=== PATIENT | male | born 1970 | race Caucasian/White ===

== ENCOUNTER → 2022-11-09 13:44 | Outpatient (BNVA) | payer MEDICAID, SELFPAY | PROVIDERS: PCP Internal Medicine; Visit Provider Anesthesiology | DX: E11.42 Type 2 diabetes mellitus with diabetic polyneuropathy (principal); M10.9 Gout, unspecified; E66.01 Morbid (severe) obesity due to excess calories; G89.4 Chronic pain syndrome; F25.9 Schizoaffective disorder, unspecified; Z68.38 Body mass index [BMI] 38.0-38.9, adult | CPT/HCPCS: 99202 ==

== ENCOUNTER 2022-12-06 10:09 | Outpatient (REF) | payer MEDICAID, SELFPAY ==
[2022-12-06 11:54] LABS: Basophils Absolute Auto 0.1 X10*3/uL (0.0-0.2); Basophils Percent Auto 0.7 % (0-2); Eosinophils Absolute Auto 0.5 X10*3/uL (0.0-0.4); Eosinophils Percent Auto 3.7 % (0-4); Hematocrit 44.8 % (42.0-52.0); Hemoglobin 14.2 g/dl (14.0-18.0); Imm Gran Pct Auto 0.7 % (0.0-0.4); Lymphocytes Percent Auto 21.6 % (20-40); MANUAL DIFF FLAG SCAN; Mean Corpuscular HGB Conc 31.7 g/dl (31.0-36.0); Mean Corpuscular Hemoglobin 27.2 pg (27.0-33.0); Mean Corpuscular Volume 85.7 fL (80.0-98.0); Monocytes Absolute Auto 1.3 X10*3/uL (0.1-1.2); Neutrophils Absolute Auto 8.9 x10*3/uL (2.0-8.3); Neutrophils Percent Auto 64.3 % (45-73); PLT CLUMP 1; Red Blood Count 5.23 X10*6/uL (4.60-5.80); SCAN SMEAR FLAG 1
[2022-12-06 12:05] LABS: Estimated Average Glucose 278 mg/dL; Hemoglobin A1c % 11.3 %
[2022-12-06 12:21] LABS: Creatinine Urine 47.24 mg/dL
[2022-12-06 12:24] LABS: Platelet Count 232 X10*3/uL (160-400); SLIDE REVIEW VERIFIED; White Blood Count 13.8 X10*3/uL (4.8-10.8)
[2022-12-06 12:25] LABS: B Type Natriuretic Peptide 15 pg/mL (<100)
[2022-12-06 12:30] LABS: Microalbum/Creatinine Ratio Ur 4233.7 ug/mg cr; Microalbumin Urine > 2000.0 mg/L
[2022-12-06 12:45] LABS: HBS Num1 14.76 mIU/mL (0-7.99); HBc Num1 0.04 S/CO (0.00-0.79); HBsAGNum1 0.35 S/CO (0.00-0.99); HIV AB/AG Nonreactive (Nonreactive); HIV Num 1 0.05 S/CO (0.00-0.99); Hepatitis A Antibody IgM 0.16 Index (0-0.79); Hepatitis B Core Antibody Nonreactive (Nonreactive); Hepatitis B Surface Antigen Negative (Negative); ~HepC Num1 0.06 S/CO (0.00-0.79); ~Hepatitis A Antibody IgM Nonreactive (Nonreactive); ~Hepatitis B Surface Antibody REACTIVE (Nonreactive); ~Hepatitis C Antibody Nonreactive (Nonreactive)
[2022-12-06 13:10] LABS: TSH reflex Free T4 1.99 uIU/mL (0.32-4.0); Vitamin D 25-OH Total 14.8 ng/mL (>30)
[2022-12-06 13:23] LABS: Alanine Aminotransferase 28 U/L (0-40); Albumin Level 3.7 g/dL (3.5-5.0); Alkaline Phosphatase 143 U/L (39-117); Anion Gap 19 (12-20); Aspartate Amino Transferase 17 U/L (5-37); Bilirubin Total 0.5 mg/dL (0.0-1.0); Blood Urea Nitrogen 36 mg/dL (9-16); Calcium 10.2 mg/dL (8.4-10.2); Carbon Dioxide 20 mmol/L (22-29); Chloride 100 mmol/L (96-108); Cholesterol 153 mg/dL; Estimated Glomerular Filt Rate 39; Glucose Random 411 mg/dL (60-115); HDL Cholesterol 33 mg/dL; LDL Cholesterol Calculated 52 mg/dl; Potassium 4.4 mmol/L (3.3-5.1); Sodium 135 mmol/L (135-145); Total Protein 7.6 g/dL (6.5-8.0); Triglycerides 340 mg/dL
[2022-12-07 04:22] LABS: Syphilis Screen Nonreactive (Nonreactive)
[2022-12-07 19:17] LABS: Calcium (PTHI) 9.9 mg/dL (8.6-10.3); PTHI 115 pg/mL (16-77)
== END 2022-12-06 10:10 | disposition home or self-care (01) ==
LOC: HO.HHCL 10:09
PROVIDERS: Visit Provider Registered Nurse
DX: R06.02 Shortness of breath (principal); E11.42 Type 2 diabetes mellitus with diabetic polyneuropathy; Z76.89 Persons encountering health services in other specified circumstances; Z00.00 Encounter for general adult medical examination without abnormal findings; Z79.4 Long term (current) use of insulin
CPT/HCPCS: 36415; 80053; 80061; 82043; 82306; 83036; 83880; 83970; 84443; 85025; 86704; 86706; 86709; 86780; 86803; 87340; 87389

== ENCOUNTER 2022-12-09 11:21 | Outpatient (REF) | payer MEDICAID, SELFPAY ==
--- NOTE | ~2022-12-09 | XR_ITS ---
EXAMINATION: XR SHOULDER, LEFT CLINICAL INFORMATION: Left shoulder pain. COMPARISON: None available. TECHNIQUE: AP external rotation, Grashey, scapular Y, and axillary views of the left shoulder. FINDINGS: The bones and soft tissues are normal. No fracture. Glenohumeral and acromioclavicular alignment is anatomic with normal joint space. No abnormal soft tissue calcifications. XR/XR shoulder LT min 2V IMPRESSION: Unremarkable left shoulder.
--- NOTE | ~2022-12-09 | XR_ITS ---
EXAMINATION: XR CERVICAL SPINE CLINICAL INFORMATION: Neck pain. COMPARISON: None available. TECHNIQUE: 6 views of the cervical spine, inclusive of flexion and extension views, were obtained. FINDINGS: The vertebral alignment is normal. No intrinsic bony abnormality. The disc heights and neural foramina are well maintained. The endplates and posterior elements are normal. No fracture or subluxation. The surrounding prevertebral soft tissues are unremarkable. XR/XR cervical spine 5V IMPRESSION: Unremarkable cervical spine.
== END 2022-12-09 11:22 | disposition home or self-care (01) ==
LOC: HO.HHCX 11:21
PROVIDERS: Visit Provider Internal Medicine
DX: M54.12 Radiculopathy, cervical region (principal); M25.512 Pain in left shoulder
CPT/HCPCS: 72050; 73030

== ENCOUNTER 2023-01-13 13:23 | Emergency (ER) | payer MEDICAID, SELFPAY ==
[2023-01-13] VITALS (8 sets, daily range): BP systolic 85–133; BP diastolic 57–87; PULSE 84–95; RESP 12–18; TEMP 36.4–36.7; O2SAT 93–98; BMI 38.2
--- NOTE | ~2023-01-13 | US_ITS ---
EXAMINATION: US VENOUS ULTRASOUND WITH DOPPLER LOWER EXTREMITY, LEFT CLINICAL INFORMATION: Left lower extremity pain and swelling. COMPARISON: None available. TECHNIQUE: Ultrasound of the deep veins is performed from the hip to the calf with compression sonography and color and pulse Doppler assessment. Spectral analysis with color-flow imaging is performed. FINDINGS: There is normal venous compression and respiratory variation and augmented flow. The visualized common femoral vein, superficial femoral vein, profunda femoral vein, popliteal vein, and the trifurcation region shows no evidence of deep venous thrombosis. If the patient's symptoms persist, followup ultrasound in 5 days 7 days might be of value to exclude proximal propagation from a non-visualized calf vein. US/US venous duplex LE IMPRESSION: No DVT demonstrated in the left lower extremity.
--- NOTE | 2023-01-13 13:58 | ED_ITS ---
HPI - General Adult General Chief complaint: Dizziness Stated complaint: Dizzy Weak Time Seen by Provider: 01/13/23 16:13 Source: patient and family Mode of arrival: ambulatory Limitations: no limitations History of Present Illness HPI narrative: Patient comes to the emergency room complaining of high blood sugars. Patient states that when he was here in the emergency room waiting, he started feeling dizzy. Patient reports that the whole room started spinning and then it self- resolved. Patient denies chest pain or shortness of breath. Also, patient has been complaining of left lower extremity calf and thigh pain in the posterior aspect for a week, patient denies any trauma. Patient states that he feels a lot of pressure. Patient states that he has neuropathy but this pain is different. Related Data Home Medications Medication Instructions Recorded Confirmed allopurinol 100 mg tablet 100 mg PO DAILY 11/09/22 aspirin 81 mg tablet,delayed 81 mg PO DAILY 11/09/22 release blood-glucose meter,continuous 11/09/22 (DexMister Mario G7 Sales Stock Associate) carvedilol 25 mg tablet 25 mg PO BID 11/09/22 dulaglutide 4.5 mg/0.5 mL 4.5 mg subcut QWEEK 11/09/22 subcutaneous pen injector (Trulicity) empagliflozin 25 mg tablet 25 mg PO DAILY 11/09/22 furosemide 80 mg tablet 80 mg PO BID 11/09/22 gabapentin 800 mg tablet 800 mg PO DAILY 11/09/22 insulin aspart U-100 100 unit/mL 20 unit subcut TID 11/09/22 (3 mL) subcutaneous pen (Novolog FlexPen U-100 Insulin aspart) insulin regular hum U-500 conc 500 200 unit subcut QAM 11/09/22 unit/mL subcutaneous soln (Humulin R U-500 (Concentrated) Insulin) losartan 50 mg tablet 50 mg PO DAILY 11/09/22 pantoprazole 40 mg tablet,delayed 40 mg PO DAILY 11/09/22 release trazodone 150 mg tablet 150 mg PO BEDTIME PRN 11/09/22 ziprasidone HCl 40 mg capsule 40 mg PO BID 11/09/22 Allergies Allergy/AdvReac Type Severity Reaction Status Date / Time penicillin V Allergy Mild Rash Verified 01/13/23 14:07 Penicillins [PENICILLINS] Allergy Unknown RASH, Verified 01/13/23 14:07 DIFFICULTY BREATHING Review of Systems 2 Review of Systems: Constitutional : No Weight loss, No Fever, No Chills, No Night Sweats, No Fatigue, No Malaise ENT/Mouth : No Hearing loss, No Ear Pain, No Nasal Congestion, No Sinus Pain, No Hoarseness, No sore throat, No Rhinorrhea, No Swallowing Difficulty Eyes: No Eye Pain, No Swelling, No Redness, No Foreign Body, No Discharge, No Vision Changes Cardiovascular : No Chest Pain, No SOB, No Dyspnea on Exertion, No Orthopnea, No Edema, No Palpitations Respiratory : No Cough, No Sputum, No Wheezing, No Smoke Exposure, No Dyspnea Gastrointestinal : No Nausea, No Vomiting, No Diarrhea, No Constipation, No abdominal Pain, No Hematochezia, No Melena Genitourinary : no irregular bleeding, No Dysuria, No Urinary Frequency, No Hematuria, No Urinary Incontinence, No Urgency, No Flank Pain, No Urinary Flow Changes, No Hesitancy Musculoskeletal : Complaining of left upper and lower leg pain and swelling, No joint pain, No Myalgias, No Joint Swelling Skin : No Skin Lesions, No rash Neuro : No Weakness, No Numbness, No Paresthesias, No Loss of Consciousness, no headache, complaining of dizziness/head spinning Psych : No Anxiety/Panic, No Depression, No SI/HI/AH/VH, No Social Issues, Heme/Lymph: No Bruising, No Bleeding,No Lymphadenopathy Endocrine : No Polyuria, No Polydipsia, complaining of high blood sugars [facility] Past Medical History Medical History (Updated 01/13/23 @ 23:14 by Zena Saldivar MD) Type 2 diabetes mellitus Schizoaffective disorder Chronic pain syndrome Diabetic polyneuropathy Gout Social History Social History Advance Directives: No Advance Directives Information Provided: Yes Physical Exam ED Vital Signs: Vital Signs - 24 hr 01/13/23 13:57 01/13/23 15:58 01/13/23 16:43 Temperature 97.5 F 98.0 F Pulse Rate 92 91 88 Respiratory Rate 18 18 16 Blood Pressure 92/62 85/59 L 91/57 L Pulse Oximetry 94 95 93 Oxygen Delivery Method Room Air Room Air Room Air Oxygen Flow Rate 01/13/23 17:05 01/13/23 18:32 01/13/23 18:33 Temperature Pulse Rate 88 84 91 Respiratory Rate 12 Blood Pressure 107/71 133/77 124/81 Pulse Oximetry 97 Oxygen Delivery Method Room Air Oxygen Flow Rate 01/13/23 18:34 01/13/23 20:01 Temperature Pulse Rate 91 95 Respiratory Rate 14 Blood Pressure 129/87 123/81 Pulse Oximetry 98 Oxygen Delivery Method Nasal Cannula Oxygen Flow Rate 2 BMI result Body Mass Index 38.2 Const Other: Appearance: Alert. Oriented X3. No acute distress. Eyes: Pupils equal, round and reactive to light. ENT: Pharynx normal. Neck: Normal inspection. Neck supple. No lymph nodes noted. No crepitus CVS: Normal heart rate and rhythm. Pulses normal. Normal S1 and S2 Respiratory: No respiratory distress. Breath sounds normal. No Wheezing. No rales Abdomen: Soft and nontender. No rigidity. No distention. Skin: Skin warm and dry. Normal skin color. Normal skin turgor. Extremities: +2 nonpitting edema, pain to palpation in the left calf and left thigh posteriorly, work left leg looks slightly more swollen than the right. Neuro: Oriented X 3. No motor deficit. No sensory deficit. Moving all extremities. No slurred speech. CN 2 through 12 grossly intact Psych: calm, cooperative, normal affect Course Course Course Narrative: RME- 52 year old male presents for evaluation of feeling weak and dizzy all day today. He reports his glucometer has been reading high all day. Plan for labs including beta hydroxybutyrate. Patient complaining of dizziness and feeling worse. I re-evaluated the patient and he was significantly diaphoretic. Plan to add EKG, troponin and he was brought back to room 19 Medications Administered Discontinued Medications Generic Name Dose Route Start Last Admin Trade Name Meñoq PRN Reason Stop Dose Admin Sodium Chloride 2,000 mls @ 999 mls/hr 01/13/23 16:25 01/13/23 16:40 Ns IVCONT 01/13/23 18:25 999 mls/hr .Q2H1M ONE Administration Sodium Chloride 1,000 mls @ 999 mls/hr 01/13/23 20:29 01/13/23 21:33 Ns IVCONT 01/13/23 21:29 999 mls/hr .Q1H1M ONE Administration Insulin Human Regular 10 unit 01/13/23 16:25 01/13/23 17:10 Insulin Regular, Human 100 Unit/Ml 3 Ml Vial IVPUSH 01/13/23 16:26 10 unit ONCE ONE Administration Meclizine HCl 50 mg 01/13/23 16:30 01/13/23 17:06 Meclizine Hcl 25 Mg Tablet PO 01/13/23 16:31 50 mg ONCE ONE Administration Medical Decision Making Medical Decision Making [facility] Narrative: -interpretation of labs, patient's white blood cell count 14.7, patient has no source of infection or reports any known infection. -patient's creatinine 2.61, couple of months ago it was 1.85. Patient receiving IV fluids, will recheck BMP -beta hydroxybutyrate negative. -orthostatic vitals pending -ultrasound of left lower extremity pending -troponin and BNP pending -my interpretation EKG, normal sinus rhythm heart rate 90, no ST segment elevation elevation or depression, QTC 437 -patient received an additional L of normal saline. 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 Patient's elevated creatinine likely secondary to chronic kidney disease from diabetes. -patient feeling much better, no longer dizzy, ready for discharge Differential Diagnosis Differential Diagnoses: The differential diagnosis associated with the presentation includes (Hyperglycemia, acute kidney injury, chronic kidney disease) Admission/Observation Consideration of admission/observation: Escalation of care including admission/observation considered (Patient came in with a high glucose level, with a no known diagnosis of kidney chronic disease. Admission was considered) Consult Healthcare Provider Management of the patient was discussed with: Hospitalist (Discussed the patient with the hospitalist, I agree with Dr. Mccarthy, the creatinine improved with fluids. However, it is very close to baseline plus additional he got an additional L of fluids. Patient known to have CKD.) Lab Data [facility] Lab Attestation statement: I reviewed the patient's lab results. 01/13/23 14:32 01/13/23 19:33 Labs: Lab Results 01/13/23 01/13/23 01/13/23 Range/Units 14:05 14:32 14:35 WBC 14.7 H (4.8-10.8) X10*3/uL RBC 5.16 (4.60-5.80) X10*6/uL Hgb 14.2 (14.0-18.0) g/dl Hct 43.4 (42.0-52.0) % MCV 84.1 (80.0-98.0) fL MCH 27.5 (27.0-33.0) pg MCHC 32.7 (31.0-36.0) g/dl RDW 13.9 (11.0-16.0) % Plt Count 290 (160-400) X10*3/uL MPV 12.7 H (9.4-12.4) fL Immature Gran % (Auto) 0.4 (0.0-0.4) % Neut % (Auto) 65.8 (45-73) % Lymph % (Auto) 19.2 L (20-40) % [place] % (Auto) 11.1 H (2-11) % Eos % (Auto) 3.0 (0-4) % Baso % (Auto) 0.5 (0-2) % Lymph # (Auto) 2.8 (1.2-4.9) X10*3/uL [place] # (Auto) 1.6 H (0.1-1.2) X10*3/uL Eos # (Auto) 0.4 (0.0-0.4) X10*3/uL Baso # (Auto) 0.1 (0.0-0.2) X10*3/uL Abs Immat Gran (auto) 0.06 H (0.00-0.03) X10*3/uL Absolute Neuts (auto) 9.7 H (2.0-8.3) x10*3/uL Absolute Nucleated RBC 0.000 (0.0-0.012) X10*3/uL Nucleated RBC % (auto) 0.0 (0.0-0.2) /100WBC Smear Tech's Comments VERIFIED Sodium 134 L (135-145) mmol/L Potassium 4.1 (3.3-5.1) mmol/L Chloride 101 (96-108) mmol/L Carbon Dioxide 24 (22-29) mmol/L Anion Gap 13 (12-20) BUN 43 H (9-16) mg/dL Creatinine 2.61 H (0.5-1.4) mg/dL Estim Creat Clear Calc 40.5 Estimated GFR 26 POC Glucose 399 H* (60-115) mg/dL Random Glucose 378 H* (60-115) mg/dL Calcium 9.9 (8.4-10.2) mg/dL Total Bilirubin 0.4 (0.0-1.0) mg/dL AST 15 (5-37) U/L ALT 19 (0-40) U/L Alkaline Phosphatase 134 H (39-117) U/L Troponin I High Sens (<3.5-35.0) ng/L B-Natriuretic Peptide (<100) pg/mL Total Protein 6.8 (6.5-8.0) g/dL Albumin 3.4 L (3.5-5.0) g/dL Lipase 105 H (8-78) U/L Beta-Hydroxybutyrate 0.12 (0.02-0.27) mmol/L Urine Color Yellow Urine Appearance Clear Urine pH 5.5 (5.0-9.0) Ur Specific [place] 1.025 (1.005-1.025) Urine Protein 300 (3+) H (Neg-Trace) mg/dL Urine Glucose (UA) >=1000 H (Negative) mg/dL Urine Ketones Negative (Negative) mg/dL Urine Blood Negative (Negative) Urine Nitrite Negative (Negative) Ur Leukocyte Esterase Negative (Negative) Urine RBC 3-5 H (0-2) /HPF Urine WBC 0-5 (0-5) /HPF Ur Squamous Epith Cells 0-2 (0-2) /HPF Urine Bacteria Trace (None Seen) Hyaline Casts 0-2 (0-2) /LPF 01/13/23 01/13/23 01/13/23 Range/Units 16:10 16:42 19:22 WBC (4.8-10.8) X10*3/uL RBC (4.60-5.80) X10*6/uL Hgb (14.0-18.0) g/dl Hct (42.0-52.0) % MCV (80.0-98.0) fL MCH (27.0-33.0) pg MCHC (31.0-36.0) g/dl RDW (11.0-16.0) % Plt Count (160-400) X10*3/uL MPV (9.4-12.4) fL Immature Gran % (Auto) (0.0-0.4) % Neut % (Auto) (45-73) % Lymph % (Auto) (20-40) % [place] % (Auto) (2-11) % Eos % (Auto) (0-4) % Baso % (Auto) (0-2) % Lymph # (Auto) (1.2-4.9) X10*3/uL [place] # (Auto) (0.1-1.2) X10*3/uL Eos # (Auto) (0.0-0.4) X10*3/uL Baso # (Auto) (0.0-0.2) X10*3/uL Abs Immat Gran (auto) (0.00-0.03) X10*3/uL Absolute Neuts (auto) (2.0-8.3) x10*3/uL Absolute Nucleated RBC (0.0-0.012) X10*3/uL Nucleated RBC % (auto) (0.0-0.2) /100WBC Smear Tech's Comments Sodium (135-145) mmol/L Potassium (3.3-5.1) mmol/L Chloride (96-108) mmol/L Carbon Dioxide (22-29) mmol/L Anion Gap (12-20) BUN (9-16) mg/dL Creatinine (0.5-1.4) mg/dL Estim Creat Clear Calc Estimated GFR POC Glucose 100 (60-115) mg/dL Random Glucose (60-115) mg/dL Calcium (8.4-10.2) mg/dL Total Bilirubin (0.0-1.0) mg/dL AST (5-37) U/L ALT (0-40) U/L Alkaline Phosphatase (39-117) U/L Troponin I High Sens 17.9 (<3.5-35.0) ng/L B-Natriuretic Peptide 10 (<100) pg/mL Total Protein (6.5-8.0) g/dL Albumin (3.5-5.0) g/dL Lipase (8-78) U/L Beta-Hydroxybutyrate (0.02-0.27) mmol/L Urine Color Urine Appearance Urine pH (5.0-9.0) Ur Specific [place] (1.005-1.025) Urine Protein (Neg-Trace) mg/dL Urine Glucose (UA) (Negative) mg/dL Urine Ketones (Negative) mg/dL Urine Blood (Negative) Urine Nitrite (Negative) Ur Leukocyte Esterase (Negative) Urine RBC (0-2) /HPF Urine WBC (0-5) /HPF Ur Squamous Epith Cells (0-2) /HPF Urine Bacteria (None Seen) Hyaline Casts (0-2) /LPF 01/13/23 Range/Units 19:33 WBC (4.8-10.8) X10*3/uL RBC (4.60-5.80) X10*6/uL Hgb (14.0-18.0) g/dl Hct (42.0-52.0) % MCV (80.0-98.0) fL MCH (27.0-33.0) pg MCHC (31.0-36.0) g/dl RDW (11.0-16.0) % Plt Count (160-400) X10*3/uL MPV (9.4-12.4) fL Immature Gran % (Auto) (0.0-0.4) % Neut % (Auto) (45-73) % Lymph % (Auto) (20-40) % [place] % (Auto) (2-11) % Eos % (Auto) (0-4) % Baso % (Auto) (0-2) % Lymph # (Auto) (1.2-4.9) X10*3/uL [place] # (Auto) (0.1-1.2) X10*3/uL Eos # (Auto) (0.0-0.4) X10*3/uL Baso # (Auto) (0.0-0.2) X10*3/uL Abs Immat Gran (auto) (0.00-0.03) X10*3/uL Absolute Neuts (auto) (2.0-8.3) x10*3/uL Absolute Nucleated RBC (0.0-0.012) X10*3/uL Nucleated RBC % (auto) (0.0-0.2) /100WBC Smear Tech's Comments Sodium 141 (135-145) mmol/L Potassium 3.7 (3.3-5.1) mmol/L Chloride 108 (96-108) mmol/L Carbon Dioxide 25 (22-29) mmol/L Anion Gap 12 (12-20) BUN 42 H (9-16) mg/dL Creatinine 2.17 H (0.5-1.4) mg/dL Estim Creat Clear Calc 48.8 Estimated GFR 32 POC Glucose (60-115) mg/dL Random Glucose 112 (60-115) mg/dL Calcium 9.5 (8.4-10.2) mg/dL Total Bilirubin (0.0-1.0) mg/dL AST (5-37) U/L ALT (0-40) U/L Alkaline Phosphatase (39-117) U/L Troponin I High Sens (<3.5-35.0) ng/L B-Natriuretic Peptide (<100) pg/mL Total Protein (6.5-8.0) g/dL Albumin (3.5-5.0) g/dL Lipase (8-78) U/L Beta-Hydroxybutyrate (0.02-0.27) mmol/L Urine Color Urine Appearance Urine pH (5.0-9.0) Ur Specific [place] (1.005-1.025) Urine Protein (Neg-Trace) mg/dL Urine Glucose (UA) (Negative) mg/dL Urine Ketones (Negative) mg/dL Urine Blood (Negative) Urine Nitrite (Negative) Ur Leukocyte Esterase (Negative) Urine RBC (0-2) /HPF Urine WBC (0-5) /HPF Ur Squamous Epith Cells (0-2) /HPF Urine Bacteria (None Seen) Hyaline Casts (0-2) /LPF Independent Interpretation I performed an independent interpretation of an: Ultrasound (My interpretation of ultrasound of the leg, no obvious blood clot/DVT) Radiology Impression Discussion of test interpretation with radiology: I have reviewed the radiologist's reading. Radiologist Impression: FINDINGS: There is normal venous compression and respiratory variation and augmented flow. The visualized common femoral vein, superficial femoral vein, profunda femoral vein, popliteal vein, and the trifurcation region shows no evidence of deep venous thrombosis. If the patient's symptoms persist, followup ultrasound in 5 days 7 days might be of value to exclude proximal propagation from a non-visualized calf vein. US/US venous duplex LE LT IMPRESSION: No DVT demonstrated in the left lower extremity. Independent Historian Clinical information obtained from an independent historian. History obtained from or confirmed by: Spouse Critical Care Time Critical Care Time Total Critical Care Time: 75 Attestation: I have personally provided critical care time. Time includes review of lab data, radiology results, discussion with consultants, and monitoring for potential decompensation. Intervention performed as documented. Discharge Plan Discharge Clinical Impression: Acute hyperglycemia, Acute kidney injury superimposed on CKD, Left leg swelling Patient Disposition: Home, Self-Care Instructions: Diabetic Hyperglycemia (ED) Additional Instructions: Please follow-up with your primary care physician tomorrow. If you have any worsening or new symptoms, please return to the emergency room or call 911 Prescriptions: No Action gabapentin 800 mg tablet 800 mg PO DAILY losartan 50 mg tablet 50 mg PO DAILY insulin aspart U-100 [Novolog FlexPen U-100 Insulin] 100 unit/mL (3 mL) insulin pen 20 unit subcut TID Trulicity 4.5 mg/0.5 mL pen injector 4.5 mg subcut QWEEK trazodone 150 mg tablet 150 mg PO BEDTIME PRN ziprasidone HCl 40 mg capsule 40 mg PO BID Rx Instructions: give with food (meal/snack) Humulin R U-500 (Conc) Insulin 500 unit/mL solution 200 unit subcut QAM pantoprazole 40 mg tablet,delayed release (DR/EC) 40 mg PO DAILY furosemide 80 mg tablet 80 mg PO BID empagliflozin 25 mg tablet 25 mg PO DAILY carvedilol 25 mg tablet 25 mg PO BID Rx Instructions: must administer with a meal/food aspirin 81 mg tablet,delayed release (DR/EC) 81 mg PO DAILY allopurinol 100 mg tablet 100 mg PO DAILY (DME) Dexcom G7 Sales Stock Associate Misc See Rx Instructions .ROUTE Rx Instructions: As directed
[2023-01-13 14:19] LABS: Glucose, Whole Blood 399 mg/dL (60-115)
--- OUTSIDE RECORDS SUMMARY | 2023-01-13 14:29 | XMS_ITS | Continuity of Care Document ---
Author Name Unknown Organization [facility] Address [address] [place] [address]- Care Team Providers Care Act English Tutor Name Role Phone Rosa Levine MD Primary Care Physician Encounter [facility] Date(s): 08/26/22 - 09/25/22 [facility] [address], [place] [address] Allergies, Adverse Reactions, Alerts Substance Reaction Severity Status penicillin Active Medications 4-jose/nif/pent/doxep 10/8/8/5% 4-jose/nif/pent/doxep 10/8/8/5%, Refills 0, Maintenance, apply for pain - electrical pulse, 08/09/22 13:25:00 EDT, Supply Start Date: 08/09/22 Status: Ordered Advair HFA 230 mcg / 21 mcg 2 puffs, Inhalation, 2 times a day, rinse mouth and throat after each use, # 3 each, 1 Refills, Maintenance, 08/25/22 18:29:00 EDT, [facility] upon patient request if the prescription is for a schedule II opioid... Start Date: 08/25/22 Status: Ordered albuterol 0.083% inhalation solution 3 mL = 2.5 mg, Inhalation, Every 6 hours, PRN shortness of breath, # 120 each, 0 Refills, Maintenance, 08/09/22 13:19:00 EDT, Solution, Partial fill upon patient request if the prescription is for a schedule II opioid drug. Start Date: 08/09/22 Status: Ordered allopurinol 100 mg oral tablet 100 mg, 1, tablet, By Mouth, Daily, # 90 tablet, Refills 1, Tot. Refills 1, Maintenance, 08/25/22 18:25:00 EDT, Route to Pharmacy Electronically, [facility]., Partial fill upon patientrequest if the prescription is for a schedule II op... Start Date: 08/25/22 Status: Ordered aspirin 81 mg oral delayed release tablet 81 mg, 1, tablet, By Mouth, Daily, # 90 tablet, Refills 1, Tot. Refills 1, Maintenance, 08/25/22 18:25:00 EDT, Route to Pharmacy Electronically, [facility], Partial fill upon patient request if the prescription is for a schedule II opi... Start Date: 08/25/22 Status: Ordered atorvastatin 80 mg oral tablet 1 tablet = 80 mg, By Mouth, Daily, # 90 tablet, 1 Refills, Maintenance, 08/25/22 18:25:00 EDT, Tablet, [facility], Partial fill upon patient request if the prescription is for a schedule II opioid drug., 176, cm, 08/17/22 14:18:00 EDT,... Start Date: 08/25/22 Status: Ordered Blood Pressure Monitor See Instructions, # 1 each, Maintenance, Use to check blood pressure daily, 09/08/22 10:57:00 EDT, Supply, 176, cm, 08/26/22 17:00:00 EDT, Height Start Date: 09/08/22 Status: Ordered carvedilol 25 mg oral tablet 25 mg, 1, tablet, By Mouth, 2 times a day, with breakfast and dinner, # 180 tablet, Refills 1, Tot.Refills 1, Maintenance, 08/25/22 18:25:00 EDT, Route to Pharmacy Electronically, [facility], Partial fill upon patient request if the p... Start Date: 08/25/22 Status: Ordered clonazePAM 0.5 mg oral tablet 1 tablet = 0.5 mg, By Mouth, 3 times a day, 0 Refills, Maintenance, 08/09/22 13:18:00 EDT, Tablet, Partial fill upon patient request if the prescription is for a schedule II opioid drug. Start Date: 08/09/22 Status: Ordered Compression Stockings See Instructions, # 1 pack/packet, Refills 1, Tot. Refills 1, Maintenance, surgical, knee length 30-40 mm Hg. Use daily ICD-10: R22.43 Lifetime, 08/17/22 14:19:00 EDT, Supply Start Date: 08/17/22 Status: Ordered DEXCOM G7 RECIEVER DEXCOM G7 RECIEVER, See Instructions, # 1 each, Refills 0, Tot. Refills 0, Maintenance, Dexcom G7 surgical garment fitter use as directed. e11.9, 09/14/22 10:15:00 EDT, Compound, 176, cm, 09/14/22 9:47:00 EDT, Height Start Date: 09/14/22 Status: Ordered Dexcom G7 Sensor Dexcom G7 Sensor, See Instructions, # 10 each, Refills 3, Tot. Refills 3, Maintenance, Apply DexcomG7 sensor Every 10 days. e11.9, 09/14/22 10:15:00 EDT, Supply, 176, cm, 09/14/22 9:47:00 EDT, Height Start Date: 09/14/22 Status: Ordered diclofenac 1% topical gel 1 application, Topically, 4 times a day, # 100 Gm, 0 Refills, Maintenance, 08/09/22 13:22:00 EDT, Gel, Partial fill upon patient request if the prescription is for a schedule II opioid drug. Start Date: 08/09/22 Status: Ordered empagliflozin 25 mg oral tablet 1 tablet = 25 mg, By Mouth, Daily in AM, # 90 tablet, 1 Refills, Maintenance, 08/25/22 18:32:00 EDT, Tablet, [facility], Partial fill upon patient request if the prescription is for aschedule II opioid drug., 176, cm, 08/17/22 14:18:0... Start Date: 08/25/22 Status: Ordered ergocalciferol 75077 iu oral capsule 50,000 International_Units, 1, capsule, By Mouth, Every week, # 13 capsule, Refills 0, Tot. Refills0, Maintenance, 09/22/22 9:24:00 EDT, Route to Pharmacy Electronically, [facility],Partial fill upon patient request if the prescripti... Start Date: 09/22/22 Stop Date: 12/21/22 Status: Ordered Eucerin Plus topical lotion 1 application, Topically, 2 times a day, PRN for dry skin, # 180 mL, 0 Refills, Maintenance, 08/26/22 17:33:00 EDT, Lotion, [facility]., Partial fill upon patient request if the prescription is for a schedule II opioid drug., 1 applicat... Start Date: 08/26/22 Status: Ordered fluticasone 50 mcg/inh nasal spray 2 sprays = 100 mcg, Nares, Both, Daily in AM, # 16 Gm, 3 Refills, Maintenance, 08/25/22 18:32:00 EDT, Nasal [place], [facility]., Partial fill upon patient request if the prescription isfor a schedule II opioid drug., 2 sprays Nares, Bot... Start Date: 08/25/22 Status: Ordered Freestyle Lancets See Instructions, # 200 each, Refills 3, Tot. Refills 3, Maintenance, Use 4xday to check blood glucose Duration lifetime Dx E11.9, 08/31/22 16:23:00 EDT, Supply, 176, cm, 08/26/22 17:00:00 EDT, Height Start Date: 08/31/22 Status: Ordered Freestyle Lite Monitor See Instructions, # 1 each, Maintenance, Use 4xday to check blood glucose Duration lifetime Dx E11.9, 08/31/22 16:23:00 EDT, Supply, 176, cm, 08/26/22 17:00:00 EDT, Height Start Date: 08/31/22 Status: Ordered Freestyle Test Strips See Instructions, # 200 each, Refills 3, Tot. Refills 3, Maintenance, Use 4xday to check blood glucose Duration lifetime Dx E11.9, 08/31/22 16:23:00 EDT, Supply, 176, cm, 08/26/22 17:00:00 EDT, Height Start Date: 08/31/22 Status: Ordered furosemide 80 mg oral tablet 80 mg, 1, tablet, By Mouth, 2 times a day, # 60 tablet, Refills 0, Tot. Refills 0, Maintenance, 08/26/22 16:04:00 EDT, Route to Pharmacy Electronically, [facility]., 176, cm, 08/17/22 14:18:00 EDT, Height Start Date: 08/26/22 Stop Date: 09/25/22 Status: Ordered gabapentin 800 mg oral tablet 2 tablet = 1,600 mg, By Mouth, 2 times a day, # 90 tablet, 0 Refills, Maintenance, 08/09/22 13:17:00 EDT, Tablet, Partial fill upon patient request if the prescription is for a schedule II opioid drug. Start Date: 08/09/22 Status: Ordered Humulin R (Concentrated) 500 units/mL subcutaneous = 190 units, Subcutaneous Injection, 2 times a day, # 24 mL, 1 Refills, Maintenance, 08/25/22 18:32:00 EDT, [facility], Partial fill upon patient request if the prescription is for a schedule II opioid drug., 176, cm, 08/17/22 14:18:00... Start Date: 08/25/22 Status: Ordered hydrALAZINE 10 mg oral tablet 10 mg, 1, tablet, By Mouth, 2 times a day, # 180 tablet, Refills 1, Tot. Refills 1, Maintenance, 09/12/22 14:43:00 EDT, Route to Pharmacy Electronically, [facility], Partial fill uponpatient request if the prescription is for a schedu... Start Date: 09/12/22 Stop Date: 03/11/23 Status: Ordered insulin aspart 100 units/mL subcutaneous solution = 30 units, Subcutaneous Injection, 3 times a day before meals, # 15 mL, 1 Refills, Maintenance, 08/25/22 18:54:00 EDT, Injection, [facility]., label all scripts in Panamanian, 176, cm, 08/17/22 14:18:00 EDT, Height Start Date: 08/25/22 Stop Date: 10/24/22 Status: Ordered lidocaine 5% topical film 1 patch, Topically, Daily, PRN Pain , Mild, remove after 12 hours, # 13 each, 0 Refills, Maintenance, 08/09/22 13:18:00 EDT, Film, Partial fill upon patient request if the prescription is for a schedule II opioid drug. Start Date: 08/09/22 Status: Ordered loperamide 2 mg oral tablet 1 tablet = 2 mg, By Mouth, Every 4 hours, for 7 days, # 42 tablet, 0 Refills, Acute 09/26/22 13:58:00 EDT, 09/19/22 13:58:00 EDT, [facility] Partial fill upon patient request if the prescription is for a schedule II opioid drug., 176,... Start Date: 09/19/22 Stop Date: 09/26/22 Status: Ordered losartan 50 mg oral tablet 50 mg, 1, tablet, By Mouth, Daily, # 90 tablet, Refills 0, Tot. Refills 0, Maintenance, 08/09/22 11:45:00 EDT, Route to Pharmacy Electronically, [facility]., Partial fill upon patient request if the prescription is for a schedule II opi... Start Date: 08/09/22 Status: Ordered pantoprazole 40 mg oral delayed release tablet 1 tablet = 40 mg, By Mouth, Daily, # 7 tablet, 0 Refills, Maintenance, 08/26/22 14:59:00 EDT, EC Tablet, 176, cm, 08/17/22 14:18:00 EDT, Height Start Date: 08/26/22 Stop Date: 09/02/22 Status: Ordered Spiriva Respimat 1.25 mcg/inh inhalation aerosol 2 puffs = 2.5 mcg, Inhalation, Daily, # 3 each, 1 Refills, Maintenance, 08/25/22 18:29:00 EDT, Aerosol, [facility]., Partial fill upon patient request if the prescription is for a schedule II opioid drug., 176 cm, 08/17/22 14:18:00 EDT... Start Date: 08/25/22 Status: Ordered traMADol 50 mg oral tablet 1 tablet = 50 mg, By Mouth, Every 8 hours, PRN for pain, # 60 tablet, 0 Refills, Maintenance, 08/09/22 13:25:00 EDT, Tablet, Partial fill upon patient request if the prescription is for a schedule IIopioid drug. Start Date: 08/09/22 Status: Ordered traZODone 150 mg oral tablet 1 tablet = 150 mg, By Mouth, Daily at bedtime, # 90 tablet, 0 Refills, Maintenance, 08/09/22 13:00:00 EDT, Tablet, [facility] Partial fill upon patient request if the prescription isfor a schedule II opioid drug., 176, cm, 08/04/22 1... Start Date: 08/09/22 Status: Ordered Triamcinolone 0.1% Dental By Mouth, 0 Refills, Maintenance Start Date: 08/09/22 Status: Ordered Trulicity Pen 4.5 mg/0.5 mL subcutaneous solution = 0.5 mL, Subcutaneous Injection, Every week, rotate injection sites, # 2 mL, 1 Refills, Maintenance, 08/09/22 11:45:00 EDT, Solution, [facility] Partial fill upon patient request ifthe prescription is for a schedule II opioid drug.,... Start Date: 08/09/22 Status: Ordered Ventolin HFA 108 mcg/inh inhalation aerosol with adapter 2 puffs = 180 mcg, Inhalation, Every 4 hours, PRN Wheezing/Shortness of Breath, # 18 Gm, 0 Refills,Maintenance, 08/25/22 18:29:00 EDT, Inhaler, [facility] Partial fill upon patient request if the prescription is for a schedule II opi... Start Date: 08/25/22 Status: Ordered Zetia 10 mg oral tablet 1 tablet = 10 mg, By Mouth, Daily, # 30 tablet, 0 Refills, Maintenance, 08/26/22 14:58:00 EDT, Tablet, [facility]., Partial fill upon patient request if the prescription is for a schedule II opioid drug., 176, cm, 08/17/22 14:18:00 EDT,... Start Date: 08/26/22 Stop Date: 09/25/22 Status: Ordered ziprasidone 40 mg oral capsule 1 capsule = 40 mg, By Mouth, Daily in AM, # 90 each, 0 Refills, Maintenance, 08/09/22 13:01:00 EDT,Capsule, [facility] Partial fill upon patient request if the prescription is for aschedule II opioid drug., 176, cm, 08/04/22 16:02:0... Start Date: 08/09/22 Status: Ordered ziprasidone 80 mg oral capsule 1 capsule = 80 mg, By Mouth, Daily at supper, # 90 each, 0 Refills, Maintenance, 08/09/22 13:01:00 EDT, [facility] Partial fill upon patient request if the prescription is for a schedule II opioid drug., 176, cm, 08/04/22 16:02:00 EDT... 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 Confirmed Active Constipation in male Confirmed Active Diabetic foot Confirmed Active Diabetes mellitus with diabetic nephropathy Confirmed Active Transaminitis Confirmed Active Primary hypertension Confirmed Active GERD without esophagitis Confirmed Active Gout Confirmed Active History of stroke Confirmed Active H/O colonoscopy 2020, next due 2027 2 Confirmed Active Hyperlipidemia due to type 2 diabetes mellitus Confirmed Active 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 Confirmed Active Microalbuminuric diabetic nephropathy Confirmed Active Asthma, mild Confirmed Active Obesity with serious comorbidity Confirmed Active REGI (obstructive sleep apnea) Confirmed Active PTSD (post-traumatic stress disorder) Confirmed Active Schizoaffective disorder, depressive type Confirmed Active Severe obesity (BMI 35.0-39.9) with comorbidity Confirmed Active Hepatic steatosis 3 Confirmed Active Tubular adenoma, benign, of large intestine 4 Confirmed Active Vitamin D deficiency Confirmed Active 1CVA 2016 2information and pathology of colonospcy in [place] 09-09-2020 note 3per note - CT at outside location 4Completed a colonoscopy 2020 and had a cecum polyp. Biopsy tubular adenoma. repeat colonoscopy 7 years Social History Social History Type Response Smoking Status Never smoker entered on: 03/12/18 Sex Patient Care team information Care Team Personnel Name: Julianna GROSS, Rosa Andres Position: [facility] Primary Care Physician Member Role: PCP Address: Address: [address] [place] [id number] Care Team Related Persons Name: MARILU BOYD
--- OUTSIDE RECORDS SUMMARY | 2023-01-13 14:29 | XMS_ITS | Continuity of Care Document ---
Author Name Unknown Organization [facility] Address [address] [place] [address]- Care Team Providers Care Hydrographic Engineer Name Role Phone Rosa Levine MD Primary Care Physician Encounter [facility] Date(s): 08/25/22 - 09/24/22 [facility] [address] [place] [address]- Allergies, Adverse Reactions, Alerts Substance Reaction Severity [...] 1 Refills, Maintenance, 08/25/22 18:29:00 EDT, [facility] fill upon patient request if the [...] 08/25/22 18:25:00 EDT, Route to Pharmacy Electronically, [facility]., Partial fill upon patientrequest if the prescription is for a schedule II op... Start Date: 08/25/22 Status: Ordered aspirin 81 mg oral delayed release tablet 81 mg, 1, tablet, By Mouth, Daily, # 90 tablet, Refills 1, Tot. Refills 1, Maintenance, 08/25/22 18:25:00 EDT, Route to Pharmacy Electronically, [facility], Partial fill upon patient request if the prescription is for a schedule II opi... Start Date: 08/25/22 Status: Ordered atorvastatin 80 mg oral tablet 1 tablet = 80 mg, By Mouth, Daily, # 90 tablet, 1 Refills, Maintenance, 08/25/22 18:25:00 EDT, Tablet, [facility], Partial fill upon patient request if [...] 08/25/22 18:25:00 EDT, Route to Pharmacy Electronically, [facility], Partial fill upon patient request if [...] 0, Tot. Refills 0, Maintenance, Dexcom G7 potato picker use as directed. e11.9, 09/14/22 10:15:00 EDT, [...] 1 Refills, Maintenance, 08/25/22 18:32:00 EDT, Tablet, [facility], Partial fill upon patient request if the prescription is for aschedule II opioid drug., 176, cm, 08/17/22 14:18:0... Start Date: 08/25/22 Status: Ordered ergocalciferol 96006 iu oral capsule 50,000 International_Units, 1, capsule, By Mouth, Every week, # 13 capsule, Refills 0, Tot. Refills0, Maintenance, 09/22/22 9:24:00 EDT, Route to Pharmacy Electronically, [facility],Partial fill upon patient request if the prescripti... Start Date: 09/22/22 Stop Date: 12/21/22 Status: Ordered Eucerin Plus topical lotion 1 application, Topically, 2 times a day, PRN for dry skin, # 180 mL, 0 Refills, Maintenance, 08/26/22 17:33:00 EDT, Lotion, [facility]., Partial fill upon patient request if the prescription is for a schedule II opioid drug., 1 applicat... Start Date: 08/26/22 Status: Ordered fluticasone 50 mcg/inh nasal spray 2 sprays = 100 mcg, Nares, Both, Daily in AM, # 16 Gm, 3 Refills, Maintenance, 08/25/22 18:32:00 EDT, Nasal [place], [facility]., Partial fill upon patient request if the [...] 08/26/22 16:04:00 EDT, Route to Pharmacy Electronically, [facility]., 176, cm, 08/17/22 14:18:00 EDT, Height Start [...] mL, 1 Refills, Maintenance, 08/25/22 18:32:00 EDT, [facility], Partial fill upon patient request if the prescription is for a schedule II opioid drug., 176, cm, 08/17/22 14:18:00... Start Date: 08/25/22 Status: Ordered hydrALAZINE 10 mg oral tablet 10 mg, 1, tablet, By Mouth, 2 times a day, # 180 tablet, Refills 1, Tot. Refills 1, Maintenance, 09/12/22 14:43:00 EDT, Route to Pharmacy Electronically, [facility], Partial fill uponpatient request if the prescription is for a schedu... Start Date: 09/12/22 Stop Date: 03/11/23 Status: Ordered insulin aspart 100 units/mL subcutaneous solution = 30 units, Subcutaneous Injection, 3 times a day before meals, # 15 mL, 1 Refills, Maintenance, 08/25/22 18:54:00 EDT, Injection, [facility]., label all scripts in [place]araguan, 176, cm, 08/17/22 14:18:00 EDT, Height Start [...] Acute 09/26/22 13:58:00 EDT, 09/19/22 13:58:00 EDT, [facility] Partial fill upon patient request if the prescription is for a schedule II opioid drug., 176,... Start Date: 09/19/22 Stop Date: 09/26/22 Status: Ordered losartan 50 mg oral tablet 50 mg, 1, tablet, By Mouth, Daily, # 90 tablet, Refills 0, Tot. Refills 0, Maintenance, 08/09/22 11:45:00 EDT, Route to Pharmacy Electronically, [facility]., Partial fill upon patient request if the [...] 1 Refills, Maintenance, 08/25/22 18:29:00 EDT, Aerosol, [facility]., Partial fill upon patient request if the [...] 0 Refills, Maintenance, 08/09/22 13:00:00 EDT, Tablet, [facility] Partial fill upon patient request if [...] 1 Refills, Maintenance, 08/09/22 11:45:00 EDT, Solution, [facility] Partial fill upon patient request ifthe prescription is for a schedule II opioid drug.,... Start Date: 08/09/22 Status: Ordered Ventolin HFA 108 mcg/inh inhalation aerosol with adapter 2 puffs = 180 mcg, Inhalation, Every 4 hours, PRN Wheezing/Shortness of Breath, # 18 Gm, 0 Refills,Maintenance, 08/25/22 18:29:00 EDT, Inhaler, [facility] Partial fill upon patient request if the prescription is for a schedule II opi... Start Date: 08/25/22 Status: Ordered Zetia 10 mg oral tablet 1 tablet = 10 mg, By Mouth, Daily, # 30 tablet, 0 Refills, Maintenance, 08/26/22 14:58:00 EDT, Tablet, [facility]., Partial fill upon patient request if the prescription is for a schedule II opioid drug., 176, cm, 08/17/22 14:18:00 EDT,... Start Date: 08/26/22 Stop Date: 09/25/22 Status: Ordered ziprasidone 40 mg oral capsule 1 capsule = 40 mg, By Mouth, Daily in AM, # 90 each, 0 Refills, Maintenance, 08/09/22 13:01:00 EDT,Capsule, [facility] Partial fill upon patient request if the prescription is for aschedule II opioid drug., 176, cm, 08/04/22 16:02:0... Start Date: 08/09/22 Status: Ordered ziprasidone 80 mg oral capsule 1 capsule = 80 mg, By Mouth, Daily at supper, # 90 each, 0 Refills, Maintenance, 08/09/22 13:01:00 EDT, [facility] Partial fill upon patient request if [...] 2016 2information and pathology of colonospcy in [facility] 09-09-2020 note 3per note - CT at outside location 4Completed a colonoscopy 2020 and had a cecum polyp. Biopsy tubular adenoma. repeat colonoscopy 7 years Social History Social History Type Response Smoking Status Never smoker entered on: 03/12/18 Sex Patient Care team information Care Team Personnel Name: Julianna GROSS, Rosa Andres Position: [facility] Primary Care Physician Member Role: PCP Address: Address: [address] [place] [id number] Care Team Related Persons Name: MARILU BOYD
--- OUTSIDE RECORDS SUMMARY | 2023-01-13 14:29 | XMS_ITS | Continuity of Care Document ---
Author Name Unknown Organization [facility] Address [address] [place] [address]- Care Team Providers Care Puncher Name Role Phone Rosa Levine MD Primary Care Physician Encounter [facility] [place] Date(s): 09/05/22 - 10/05/22 [facility] [address] [place] [address]- Allergies, Adverse Reactions, Alerts Substance Reaction Severity [...] 1 Refills, Maintenance, 08/25/22 18:29:00 EDT, [facility] upon patient request if [...] 08/25/22 18:25:00 EDT, Route to Pharmacy Electronically, [facility]., Partial fill upon patientrequest if the prescription is for a schedule II op... Start Date: 08/25/22 Status: Ordered aspirin 81 mg oral delayed release tablet 81 mg, 1, tablet, By Mouth, Daily, # 90 tablet, Refills 1, Tot. Refills 1, Maintenance, 08/25/22 18:25:00 EDT, Route to Pharmacy Electronically, [facility], Partial fill upon patient request if the prescription is for a schedule II opi... Start Date: 08/25/22 Status: Ordered atorvastatin 80 mg oral tablet 1 tablet = 80 mg, By Mouth, Daily, # 90 tablet, 1 Refills, Maintenance, 08/25/22 18:25:00 EDT, Tablet, [facility], Partial fill upon patient request if [...] 08/25/22 18:25:00 EDT, Route to Pharmacy Electronically, [facility], Partial fill upon patient request if [...] 0, Tot. 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 e11.9, 09/14/22 10:15:00 EDT, [...] 1 Refills, Maintenance, 08/25/22 18:32:00 EDT, Tablet, [facility], Partial fill upon patient request if the prescription is for aschedule II opioid drug., 176, cm, 08/17/22 14:18:0... Start Date: 08/25/22 Status: Ordered ergocalciferol 35793 iu oral capsule 50,000 International_Units, 1, capsule, By Mouth, Every week, # 13 capsule, Refills 0, Tot. Refills0, Maintenance, 09/22/22 9:24:00 EDT, Route to Pharmacy Electronically, [facility],Partial fill upon patient request if the prescripti... Start Date: 09/22/22 Stop Date: 12/21/22 Status: Ordered Eucerin Plus topical lotion 1 application, Topically, 2 times a day, PRN for dry skin, # 180 mL, 0 Refills, Maintenance, 08/26/22 17:33:00 EDT, Lotion, [facility]., Partial fill upon patient request if the prescription is for a schedule II opioid drug., 1 applicat... Start Date: 08/26/22 Status: Ordered fluticasone 50 mcg/inh nasal spray 2 sprays = 100 mcg, Nares, Both, Daily in AM, # 16 Gm, 3 Refills, Maintenance, 08/25/22 18:32:00 EDT, Nasal [place], [facility]., Partial fill upon patient request if [...] 08/26/22 16:04:00 EDT, Route to Pharmacy Electronically, [facility]., 176, cm, 08/17/22 14:18:00 EDT, Height [...] mL, 1 Refills, Maintenance, 08/25/22 18:32:00 EDT, [facility], Partial fill upon patient request if the prescription is for a schedule II opioid drug., 176, cm, 08/17/22 14:18:00... Start Date: 08/25/22 Status: Ordered hydrALAZINE 10 mg oral tablet 10 mg, 1, tablet, By Mouth, 2 times a day, # 180 tablet, Refills 1, Tot. Refills 1, Maintenance, 09/12/22 14:43:00 EDT, Route to Pharmacy Electronically, [facility], Partial fill uponpatient request if the prescription is for a schedu... Start Date: 09/12/22 Stop Date: 03/11/23 Status: Ordered insulin aspart 100 units/mL subcutaneous solution = 30 units, Subcutaneous Injection, 3 times a day before meals, # 15 mL, 1 Refills, Maintenance, 08/25/22 18:54:00 EDT, Injection, [facility]., label all scripts in [place], 176, cm, 08/17/22 14:18:00 EDT, Height Start Date: 08/25/22 Stop Date: 10/24/22 Status: Ordered lidocaine 5% topical film 1 patch, Topically, Daily, PRN Pain , Mild, remove after 12 hours, # 13 each, 0 Refills, Maintenance, 08/09/22 13:18:00 EDT, Film, Partial fill upon patient request if the prescription is for a schedule II opioid drug. Start Date: 08/09/22 Status: Ordered losartan 50 mg oral tablet 50 mg, 1, tablet, By Mouth, Daily, # 90 tablet, Refills 0, Tot. Refills 0, Maintenance, 08/09/22 11:45:00 EDT, Route to Pharmacy Electronically, [facility]., Partial fill upon patient request if [...] 1 Refills, Maintenance, 08/25/22 18:29:00 EDT, Aerosol, [facility]., Partial fill upon patient request if the prescription is for a schedule II opioid drug., 176, cm, 08/17/22 14:18:00 EDT... Start Date: 08/25/22 [...] 0 Refills, Maintenance, 08/09/22 13:00:00 EDT, Tablet, [facility] Partial fill upon patient [...] 1 Refills, Maintenance, 08/09/22 11:45:00 EDT, Solution, [facility]., Partial fill upon patient request ifthe prescription is for a schedule II opioid drug.,... Start Date: 08/09/22 Status: Ordered Ventolin HFA 108 mcg/inh inhalation aerosol with adapter 2 puffs = 180 mcg, Inhalation, Every 4 hours, PRN Wheezing/Shortness of Breath, # 18 Gm, 0 Refills,Maintenance, 08/25/22 18:29:00 EDT, Inhaler, [facility]., Partial fill upon patient request if the prescription is for a schedule II opi... Start Date: 08/25/22 Status: Ordered ziprasidone 40 mg oral capsule 1 capsule = 40 mg, By Mouth, Daily in AM, # 90 each, 0 Refills, Maintenance, 08/09/22 13:01:00 EDT,Capsule, [facility], Partial fill upon patient request if the prescription is for aschedule II opioid drug., 176, cm, 08/04/22 16:02:0... Start Date: 08/09/22 Status: Ordered ziprasidone 80 mg oral capsule 1 capsule = 80 mg, By Mouth, Daily at supper, # 90 each, 0 Refills, Maintenance, 08/09/22 13:01:00 EDT, [facility], Partial fill upon patient request if [...] 2016 2information and pathology of colonospcy in [facility] 09-09-2020 note 3per note - CT at outside location 4Completed a colonoscopy 2020 and had a cecum polyp. Biopsy tubular adenoma. repeat colonoscopy 7 years Social History Social History Type Response Smoking Status Never smoker entered on: 03/12/18 Sex Patient Care team information Care Team Personnel Name: Julianna GROSS, Rosa Andres Position: [facility] Physician - Primary Care Member Role: PCP Address: Address: [address] [place] [address]- Care Team Related Persons Name: MARILU BOYD
--- OUTSIDE RECORDS SUMMARY | 2023-01-13 14:29 | XMS_ITS | Continuity of Care Document ---
Author Name Unknown Organization [facility] Address [address] [place] [address]- Care Team Providers Care Stitch Wheeler Name Role Phone Rosa Levine MD Primary Care Physician [place] [facility] [place]19[place] 10/19/22 [facility] [address] [place], [place] [address] Allergies, Adverse Reactions, Alerts Substance Reaction Severity [...] 1 Refills, Maintenance, 08/25/22 18:29:00 EDT, [facility], [facility], [facility] fill upon patient request if [...] 08/25/22 18:25:00 EDT, Route to Pharmacy Electronically, [facility], Partial fill upon patient request if the prescription is for a schedule II opi... Start Date: 08/25/22 Status: Ordered atorvastatin 80 mg oral tablet 1 tablet = 80 mg, By Mouth, Daily, # 90 tablet, 1 Refills, Maintenance, 08/25/22 18:25:00 EDT, Tablet, [facility], Partial fill upon patient request if [...] 08/25/22 18:25:00 EDT, Route to Pharmacy Electronically, [facility], Partial fill upon patient request if [...] 0, Tot. 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 e11.9, 09/14/22 10:15:00 EDT, [...] 1 Refills, Maintenance, 08/25/22 18:32:00 EDT, Tablet, [facility], Partial fill upon patient request if the prescription is for aschedule II opioid drug., 176, cm, 08/17/22 14:18:0... Start Date: 08/25/22 Status: Ordered ergocalciferol 01872 iu oral capsule 50,000 International_Units, 1, capsule, By Mouth, Every week, # 13 capsule, Refills 0, Tot. Refills0, Maintenance, 09/22/22 9:24:00 EDT, Route to Pharmacy Electronically, [facility],Partial fill upon patient request if the [...] 3 Refills, Maintenance, 08/25/22 18:32:00 EDT, Nasal [place], [facility]., Partial fill upon patient [...] mL, 1 Refills, Maintenance, 08/25/22 18:32:00 EDT, [facility], Partial fill upon patient request if the prescription is for a schedule II opioid drug., 176, cm, 08/17/22 14:18:00... Start Date: 08/25/22 Status: Ordered insulin aspart 100 units/mL subcutaneous solution = 30 units, Subcutaneous Injection, 3 times a day before meals, # 15 mL, 1 Refills, Maintenance, 08/25/22 18:54:00 EDT, Injection, [facility]., label all scripts in [place], 176, [...] 08/09/22 11:45:00 EDT, Route to Pharmacy Electronically, [facility], Partial fill upon patient request if the prescription is for a schedule II opi... Start Date: 08/09/22 Status: Ordered losartan 50 mg oral tablet 1 tablet = 50 mg, By Mouth, Daily, # 90 tablet, 1 Refills, Maintenance, 10/17/22 16:21:00 EDT, [facility]., 176, cm, 09/19/22 13:07:00 EDT, Height Start Date: 10/17/22 Stop Date: 04/15/23 Status: Ordered pantoprazole 40 mg oral delayed [...] 1 Refills, Maintenance, 08/25/22 18:29:00 EDT, Aerosol, [facility] Partial fill upon patient request if the prescription is for a schedule II opioid drug., 176, cm, 08/17/22 14:18:00 EDT... Start Date: 08/25/22 Status: Ordered traZODone 150 mg oral tablet 1 tablet = 150 mg, By Mouth, Daily at bedtime, # 90 tablet, 0 Refills, Maintenance, 08/09/22 13:00:00 EDT, Tablet, [facility] Partial fill upon patient request [...] 1 Refills, Maintenance, 08/09/22 11:45:00 EDT, Solution, [facility] Partial fill upon patient request ifthe prescription is for a schedule II opioid drug.,... Start Date: 08/09/22 Status: Ordered Ventolin HFA 108 mcg/inh inhalation aerosol with adapter 2 puffs = 180 mcg, Inhalation, Every 4 hours, PRN Wheezing/Shortness of Breath, # 18 Gm, 0 Refills,Maintenance, 08/25/22 18:29:00 EDT, Inhaler, [facility] Partial fill upon patient request if the prescription is for a schedule II opi... Start Date: 08/25/22 Status: Ordered ziprasidone 40 mg oral capsule 1 capsule = 40 mg, By Mouth, Daily in AM, # 90 each, 0 Refills, Maintenance, 08/09/22 13:01:00 EDT,Capsule, [facility] Partial fill upon patient request if the prescription is for aschedule II opioid drug., 176, cm, 08/04/22 16:02:0... Start Date: 08/09/22 Status: Ordered ziprasidone 80 mg oral capsule 1 capsule = 80 mg, By Mouth, Daily at supper, # 90 each, 0 Refills, Maintenance, 08/09/22 13:01:00 EDT, [facility] fill upon patient request [...] nephropathy Confirmed Active Asthma, mild Confirmed Active Obese class I Confirmed Active Obesity with serious comorbidity Confirmed Active REGI (obstructive sleep apnea) Confirmed Active PTSD (post-traumatic stress disorder) Confirmed Active Schizoaffective disorder, depressive type Confirmed Active Hepatic steatosis 3 Confirmed Active Tubular adenoma, benign, of large intestine 4 Confirmed Active Vitamin D deficiency Confirmed Active 1CVA 2016 2information and pathology of colonospcy in [place] 09-09-2020 note 3per note - CT at outside location 4Completed a colonoscopy 2020 and had a cecum polyp. Biopsy tubular adenoma. repeat colonoscopy 7 years Social History Social History Type Response Smoking Status Never smoker entered on: 03/12/18 Sex Patient Care team information Care Team Personnel Name: Rosa Levine MD Position: [facility] Physician - Primary Care Member Role: PCP Address: Address: [address] [place] [address]- Care Team Related Persons Name: MARILU BOYD
--- OUTSIDE RECORDS SUMMARY | 2023-01-13 14:29 | XMS_ITS | Continuity of Care Document ---
Author Name Unknown Organization [facility] Address [address] [place] [address]- Care Team Providers Care Lacquer Maker Name Role Phone Julianna GROSS, Rosa Andres Primary Care Physician Encounter [facility] [place] Date(s): 10/31/22 - 11/07/22 [facility] [address] [place] [address]- Attending Physician: Kwame Lowe MD Referring Physician: Julianna GROSS, Rosa Andres Allergies, Adverse Reactions, Alerts Substance Reaction Severity [...] 1 Refills, Maintenance, 08/25/22 18:29:00 EDT, Aerosol, [facility], Partial fill upon patient request if [...] 08/25/22 18:25:00 EDT, Route to Pharmacy Electronically, [facility], Partial fill upon patientrequest if the prescription is for a schedule II op... Start Date: 08/25/22 Status: Ordered aspirin 81 mg oral delayed release tablet 81 mg, 1, tablet, By Mouth, Daily, # 90 tablet, Refills 1, Tot. Refills 1, Maintenance, 08/25/22 18:25:00 EDT, Route to Pharmacy Electronically, [facility]., Partial fill upon patient request if the prescription is for a schedule II opi... Start Date: 08/25/22 Status: Ordered atorvastatin 80 mg oral tablet 1 tablet = 80 mg, By Mouth, Daily, # 90 tablet, 1 Refills, Maintenance, 08/25/22 18:25:00 EDT, Tablet, [facility], Partial fill upon patient request if [...] 08/25/22 18:25:00 EDT, Route to Pharmacy Electronically, [facility], Partial fill upon patient request if [...] 0, Tot. 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 e11.9, 09/14/22 [...] 1 Refills, Maintenance, 08/25/22 18:32:00 EDT, Tablet, [facility], Partial fill upon patient request if the prescription is for aschedule II opioid drug., 176, cm, 08/17/22 14:18:0... Start Date: 08/25/22 Status: Ordered ergocalciferol 59729 iu oral capsule 50,000 International_Units, 1, capsule, By Mouth, Every week, # 13 capsule, Refills 0, Tot. Refills0, Maintenance, 09/22/22 9:24:00 EDT, Route to Pharmacy Electronically, [facility],Partial fill upon patient request if the prescripti... Start Date: 09/22/22 Stop Date: 12/21/22 Status: Ordered Eucerin Plus topical lotion 1 application, Topically, 2 times a day, PRN for dry skin, # 180 mL, 0 Refills, Maintenance, 08/26/22 17:33:00 EDT, Lotion, [facility]., Partial fill upon patient request if the prescription is for a schedule II opioid drug., 1 applicat... Start Date: 08/26/22 Status: Ordered fluticasone 50 mcg/inh nasal spray 2 sprays = 100 mcg, Nares, Both, Daily in AM, # 16 Gm, 3 Refills, Maintenance, 08/25/22 18:32:00 EDT, Nasal [place], [facility]., Partial fill upon patient request if [...] 08/26/22 16:04:00 EDT, Route to Pharmacy Electronically, [facility]., 176, cm, 08/17/22 14:18:00 EDT, Height [...] Ordered Humulin R (Concentrated) 500 units/mL subcutaneous See Instructions, as per Endocrine September 2022 U500 scale given before breakfast and dinner U500 [id number] 200 151-200 210 201-250 220 251-300 230 301-350 240 >350 250, # 30 mL, 0 Refills, Maintenance,... Start Date: 10/27/22 Status: Ordered insulin aspart 100 units/mL subcutaneous solution = 30 units, Subcutaneous Injection, 3 times a day before meals, # 15 mL, 1 Refills, Maintenance, 08/25/22 18:54:00 EDT, Injection, [facility], label all scripts in [place], 176, cm, 08/17/22 14:18:00 EDT, Height Start [...] 08/09/22 11:45:00 EDT, Route to Pharmacy Electronically, [facility], Partial fill upon patient request if the prescription is for a schedule II opi... Start Date: 08/09/22 Status: Ordered losartan 50 mg oral tablet 1 tablet = 50 mg, By Mouth, Daily, # 90 tablet, 1 Refills, Maintenance, 10/17/22 16:21:00 EDT, [facility], 176, cm, 09/19/22 13:07:00 EDT, Height Start [...] 1 Refills, Maintenance, 08/25/22 18:29:00 EDT, Aerosol, [facility] Partial fill upon patient request if the prescription is for a schedule II opioid drug., 176, cm, 08/17/22 14:18:00 EDT... Start Date: 08/25/22 Status: Ordered traZODone 150 mg oral tablet 1 tablet = 150 mg, By Mouth, Daily at bedtime, # 90 tablet, 0 Refills, Maintenance, 08/09/22 13:00:00 EDT, Tablet, [facility] Partial fill upon patient request [...] 1 Refills, Maintenance, 08/09/22 11:45:00 EDT, Solution, [facility] Partial fill upon patient request ifthe prescription is for a schedule II opioid drug.,... Start Date: 08/09/22 Status: Ordered Ventolin HFA 108 mcg/inh inhalation aerosol with adapter 2 puffs = 180 mcg, Inhalation, Every 4 hours, PRN Wheezing/Shortness of Breath, # 18 Gm, 0 Refills,Maintenance, 08/25/22 18:29:00 EDT, [facility]hal[facility] fill upon patient request if the prescription is for a schedule II opi... Start Date: 08/25/22 Status: Ordered ziprasidone 40 mg oral capsule 1 capsule = 40 mg, By Mouth, Daily in AM, # 90 each, 0 Refills, Maintenance, 08/09/22 13:01:00 EDT,Capsule, [facility] Partial fill upon patient request if the prescription is for aschedule II opioid drug., 176, cm, 08/04/22 16:02:0... Start Date: 08/09/22 Status: Ordered ziprasidone 80 mg oral capsule 1 capsule = 80 mg, By Mouth, Daily at supper, # 90 each, 0 Refills, Maintenance, 08/09/22 13:01:00 EDT, [facility] Partial fill upon patient request [...] 2016 2information and pathology of colonospcy in [facility] 09-09-2020 note 3per note - CT at outside location 4Completed a colonoscopy 2020 and had a cecum polyp. Biopsy tubular adenoma. repeat colonoscopy 7 years Vital Signs Most recent to oldest [Reference Range]: 1 Height 176 cm (10/31/22 1:11 PM) Oxygen Saturation [94-100 %] 97 % (10/31/22 1:11 PM) Pulse Rate [55-90 bpm] 109 bpm *H* (10/31/22 1:11 PM) Blood Pressure [90-138/55-84 mm Hg] 156/ 92mm Hg *H* (10/31/22 1:11 PM) Respiratory Rate [16-30 br/min] 18 br/mi n (10/31/22 1:11 PM) Temperature [96.8-100.4 DegF] 97.8 DegF (10/31/22 1:11 PM) Mode of Delivery (Oxygen) Room air (10/31/22 1:11 PM) Blood pressure sites Arm, right (10/31/22 1:11 PM) Temperature Route Temporal (10/31/22 1:11 PM) Social History Social History Type Response Smoking Status Never smoker entered on: 03/12/18 Sex Patient Care team information Care Team Personnel Name: Julianna GROSS, Rosa Andres Position: [facility] Physician - Primary Care Member Role: PCP Address: Address: [address] [place] [address]- Care Team Related Persons Name: MARILU BOYD
--- OUTSIDE RECORDS SUMMARY | 2023-01-13 14:29 | XMS_ITS | Continuity of Care Document ---
Author Name Unknown Organization [facility] Address [address] [place] [address]- Care Team Providers Care Clerical Support Name Role Phone Rosa Levine MD Primary Care Physician Encounter [facility] [place] Date(s): 10/17/22 - 11/16/22 [facility] [address] [place] [address]- Attending Physician: AdmAni subramanian Admitting Physician: Admtr, Ani Referring Physician: Admtr, Ar8 Allergies, Adverse Reactions, Alerts Substance Reaction Severity [...] 1 Refills, Maintenance, 08/25/22 18:29:00 EDT, [facility], [facility] fill upon patient request if [...] 08/25/22 18:25:00 EDT, Route to Pharmacy Electronically, [facility]., Partial fill upon patientrequest if the prescription is for a schedule II op... Start Date: 08/25/22 Status: Ordered aspirin 81 mg oral delayed release tablet 81 mg, 1, tablet, By Mouth, Daily, # 90 tablet, Refills 1, Tot. Refills 1, Maintenance, 08/25/22 18:25:00 EDT, Route to Pharmacy Electronically, [facility]., Partial fill upon patient request if the prescription is for a schedule II opi... Start Date: 08/25/22 Status: Ordered atorvastatin 80 mg oral tablet 1 tablet = 80 mg, By Mouth, Daily, # 90 tablet, 1 Refills, Maintenance, 08/25/22 18:25:00 EDT, Tablet, [facility]., Partial fill upon patient request if [...] 08/25/22 18:25:00 EDT, Route to Pharmacy Electronically, [facility]., Partial fill upon patient request if [...] 0, Tot. 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 e11.9, 09/14/22 10:15:00 EDT, [...] 1 Refills, Maintenance, 08/25/22 18:32:00 EDT, Tablet, [facility], Partial fill upon patient request if the prescription is for aschedule II opioid drug., 176, cm, 08/17/22 14:18:0... Start Date: 08/25/22 Status: Ordered ergocalciferol 03952 iu oral capsule 50,000 International_Units, 1, capsule, By Mouth, Every week, # 13 capsule, Refills 0, Tot. Refills0, Maintenance, 09/22/22 9:24:00 EDT, Route to Pharmacy Electronically, [facility],Partial fill upon patient request if the prescripti... Start Date: 09/22/22 Stop Date: 12/21/22 Status: Ordered Eucerin Plus topical lotion 1 application, Topically, 2 times a day, PRN for dry skin, # 180 mL, 0 Refills, Maintenance, 08/26/22 17:33:00 EDT, Lotion, [facility]., Partial fill upon patient request if the prescription is for a schedule II opioid drug., 1 applicat... Start Date: 08/26/22 Status: Ordered fluticasone 50 mcg/inh nasal spray 2 sprays = 100 mcg, Nares, Both, Daily in AM, # 16 Gm, 3 Refills, Maintenance, 08/25/22 18:32:00 EDT, Nasal [place], [facility], Partial fill upon patient request if [...] 08/26/22 16:04:00 EDT, Route to Pharmacy Electronically, [facility]., 176, cm, 08/17/22 14:18:00 EDT, Height [...] scale given before breakfast and dinner U500 -379 200 151-200 210 201-250 220 251-300 230 301-350 240 >350 250, # 30 mL, 0 Refills, Maintenance,... Start Date: 10/27/22 Status: Ordered insulin aspart 100 units/mL subcutaneous solution = 30 units, Subcutaneous Injection, 3 times a day before meals, # 15 mL, 1 Refills, Maintenance, 08/25/22 18:54:00 EDT, Injection, [facility], label all scripts in Dutch, 176, cm, 08/17/22 14:18:00 EDT, Height Start [...] 08/09/22 11:45:00 EDT, Route to Pharmacy Electronically, [facility], Partial fill upon patient request if the prescription is for a schedule II opi... Start Date: 08/09/22 Status: Ordered losartan 50 mg oral tablet 1 tablet = 50 mg, By Mouth, Daily, # 90 tablet, 1 Refills, Maintenance, 10/17/22 16:21:00 EDT, [facility], 176, cm, 09/19/22 13:07:00 EDT, Height [...] Maintenance, 08/25/22 18:29:00 EDT, Aerosol, [facility]., Partial fill upon patient request if the prescription is for a schedule II opioid drug., 176, cm, 08/17/22 14:18:00 EDT... Start Date: 08/25/22 Status: Ordered traZODone 150 mg oral tablet 1 tablet = 150 mg, By Mouth, Daily at bedtime, # 90 tablet, 0 Refills, Maintenance, 08/09/22 13:00:00 EDT, Tablet, [facility]., Partial fill upon patient request if [...] Maintenance, 08/09/22 11:45:00 EDT, Solution, [facility]., Partial fill upon patient request ifthe prescription is for a schedule II opioid drug.,... Start Date: 08/09/22 Status: Ordered Ventolin HFA 108 mcg/inh inhalation aerosol with adapter 2 puffs = 180 mcg, Inhalation, Every 4 hours, PRN Wheezing/Shortness of Breath, # 18 Gm, 0 Refills,Maintenance, 08/25/22 18:29:00 EDT, [facility] Partial fill upon patient request if the prescription is for a schedule II opi... Start Date: 08/25/22 Status: Ordered ziprasidone 40 mg oral capsule 1 capsule = 40 mg, By Mouth, Daily in AM, # 90 each, 0 Refills, Maintenance, 08/09/22 13:01:00 EDT,Capsule, [facility] Partial fill upon patient request if the prescription is for aschedule II opioid drug., 176, cm, 08/04/22 16:02:0... Start Date: 08/09/22 Status: Ordered ziprasidone 80 mg oral capsule 1 capsule = 80 mg, By Mouth, Daily at supper, # 90 each, 0 Refills, Maintenance, 08/09/22 13:01:00 EDT, [facility] Partial fill upon patient request if [...] 2016 2information and pathology of colonospcy in [facility] 09-09-2020 note 3per note - CT at outside location 4Completed a colonoscopy 2020 and had a cecum polyp. Biopsy tubular adenoma. repeat colonoscopy 7 years Procedures Procedure Date Related Diagnosis Body Site Status Colonoscopy - per scanned 09-09-2020 note, had biopsy/pathology in note, repeat due that due 202709/04/20 [facility] ed Social History Social History Type Response Smoking Status Never smoker entered on: 03/12/18 Sex EKG study * Event Display: EKG Authored Date: Laboratory * Event Display: Non BH Lab Results Authored Date: * Event Display: Non BH Lab Results Authored Date: * Event Display: Non BH Lab Results Authored Date: Radiology * Event Display: Ultrasound Abdomen, Non-BH Authored Date: * Event Display: Ultrasound Lower Extremity, Non-BH Authored Date: * Event Display: Ultrasound Lower Extremity, Non-BH Authored Date: * Event Display: X-Ray Chest, Non- BH Authored Date: * Event Display: X-Ray Spine, Non- BH Authored Date: * Event Display: X-Ray Hand/Wrist, Non- BH Authored Date: * Event Display: Ultrasound Lower Extremity, Non-BH Authored Date: Patient Care team information Care Team Personnel Name: Rosa Levine MD Position: S Physician - Primary Care Member Role: PCP Address: Address: [address] [place] [address]- Care Team Related Persons Name: MARILU BOYD
--- OUTSIDE RECORDS SUMMARY | 2023-01-13 14:29 | XMS_ITS | Continuity of Care Document ---
Author Name Unknown Organization [facility] Address [address] [place] [address]- Care Team Providers Care Master Lay Out Specialist Name Role Phone Rosa Levine MD Primary Care Physician [place] [facility] 09/05[place] - 10/05/22 [facility] [address], [place] [address] Allergies, Adverse Reactions, Alerts Substance Reaction [...] 18:29:00 EDT, [facility]ol[facility], [facility] fill upon patient request if [...] 08/25/22 18:25:00 EDT, Route to Pharmacy Electronically, [facility]., Partial fill upon patientrequest if the prescription is for a schedule II op... Start Date: 08/25/22 Status: Ordered aspirin 81 mg oral delayed release tablet 81 mg, 1, tablet, By Mouth, Daily, # 90 tablet, Refills 1, Tot. Refills 1, Maintenance, 08/25/22 18:25:00 EDT, Route to Pharmacy Electronically, [facility], Partial fill upon patient request if the prescription is for a schedule II opi... Start Date: 08/25/22 Status: Ordered atorvastatin 80 mg oral tablet 1 tablet = 80 mg, By Mouth, Daily, # 90 tablet, 1 Refills, Maintenance, 08/25/22 18:25:00 EDT, Tablet, [facility], Partial fill upon patient request if [...] 08/25/22 18:25:00 EDT, Route to Pharmacy Electronically, [facility], Partial fill upon patient request if [...] 0, Tot. Refills 0, Maintenance, Dexcom G7 dye mixer use as directed. e11.9, 09/14/22 10:15:00 EDT, [...] 1 Refills, Maintenance, 08/25/22 18:32:00 EDT, Tablet, [facility], Partial fill upon patient request if the prescription is for aschedule II opioid drug., 176, cm, 08/17/22 14:18:0... Start Date: 08/25/22 Status: Ordered ergocalciferol 84490 iu oral capsule 50,000 International_Units, 1, capsule, By Mouth, Every week, # 13 capsule, Refills 0, Tot. Refills0, Maintenance, 09/22/22 9:24:00 EDT, Route to Pharmacy Electronically, [facility],Partial fill upon patient request if the prescripti... Start Date: 09/22/22 Stop Date: 12/21/22 Status: Ordered Eucerin Plus topical lotion 1 application, Topically, 2 times a day, PRN for dry skin, # 180 mL, 0 Refills, Maintenance, 08/26/22 17:33:00 EDT, Lotion, [facility]., Partial fill upon patient request if the prescription is for a schedule II opioid drug., 1 applicat... Start Date: 08/26/22 Status: Ordered fluticasone 50 mcg/inh nasal spray 2 sprays = 100 mcg, Nares, Both, Daily in AM, # 16 Gm, 3 Refills, Maintenance, 08/25/22 18:32:00 EDT, Nasal [place], [facility]., Partial fill upon patient request if [...] 08/26/22 16:04:00 EDT, Route to Pharmacy Electronically, [facility]., 176, cm, 08/17/22 14:18:00 EDT, Height [...] mL, 1 Refills, Maintenance, 08/25/22 18:32:00 EDT, [facility], Partial fill upon patient request if the prescription is for a schedule II opioid drug., 176, cm, 08/17/22 14:18:00... Start Date: 08/25/22 Status: Ordered hydrALAZINE 10 mg oral tablet 10 mg, 1, tablet, By Mouth, 2 times a day, # 180 tablet, Refills 1, Tot. Refills 1, Maintenance, 09/12/22 14:43:00 EDT, Route to Pharmacy Electronically, [facility], Partial fill uponpatient request if the prescription is for a schedu... Start Date: 09/12/22 Stop Date: 03/11/23 Status: Ordered insulin aspart 100 units/mL subcutaneous solution = 30 units, Subcutaneous Injection, 3 times a day before meals, # 15 mL, 1 Refills, Maintenance, 08/25/22 18:54:00 EDT, Injection, [facility]., label all scripts in Romanian, 176, cm, 08/17/22 14:18:00 EDT, Height Start [...] 08/09/22 11:45:00 EDT, Route to Pharmacy Electronically, [facility]., Partial fill upon patient request if [...] 1 Refills, Maintenance, 08/25/22 18:29:00 EDT, Aerosol, [facility]., Partial fill upon patient request if [...] 0 Refills, Maintenance, 08/09/22 13:00:00 EDT, Tablet, [facility] Partial fill upon patient request [...] 1 Refills, Maintenance, 08/09/22 11:45:00 EDT, Solution, [facility]., Partial fill upon patient request ifthe prescription is for a schedule II opioid drug.,... Start Date: 08/09/22 Status: Ordered Ventolin HFA 108 mcg/inh inhalation aerosol with adapter 2 puffs = 180 mcg, Inhalation, Every 4 hours, PRN Wheezing/Shortness of Breath, # 18 Gm, 0 Refills,Maintenance, 08/25/22 18:29:00 EDT, Inhaler, [facility]., Partial fill upon patient request if the prescription is for a schedule II opi... Start Date: 08/25/22 Status: Ordered ziprasidone 40 mg oral capsule 1 capsule = 40 mg, By Mouth, Daily in AM, # 90 each, 0 Refills, Maintenance, 08/09/22 13:01:00 EDT,Capsule, [facility], Partial fill upon patient request if the prescription is for aschedule II opioid drug., 176, cm, 08/04/22 16:02:0... Start Date: 08/09/22 Status: Ordered ziprasidone 80 mg oral capsule 1 capsule = 80 mg, By Mouth, Daily at supper, # 90 each, 0 Refills, Maintenance, 08/09/22 13:01:00 EDT, [facility], Partial fill upon patient request if [...] 2016 2information and pathology of colonospcy in [facility] 09-09-2020 note 3per note - CT at outside location 4Completed a colonoscopy 2020 and had a cecum polyp. Biopsy tubular adenoma. repeat colonoscopy 7 years Social History Social History Type Response Smoking Status Never smoker entered on: 03/12/18 Sex Patient Care team information Care Team Personnel Name: Julianna GROSS, Rosa Andres Position: [facility] Physician - Primary Care Member Role: PCP Address: Address: [address] [place] [address]- Care Team Related Persons Name: MARILU BOYD
--- OUTSIDE RECORDS SUMMARY | 2023-01-13 14:30 | XMS_ITS | Continuity of Care Document ---
Author Name Unknown Organization [facility] Address [address] [place] [address]- Care Team Providers Care Multimedia Project Manager Name Role Phone Rosa Levine MD Primary Care Physician Encounter [facility] [place] Date(s): 09/02/22 - 10/02/22 [facility] [address] [place] [address]- Allergies, Adverse Reactions, Alerts Substance Reaction Severity [...] 1 Refills, Maintenance, 08/25/22 18:29:00 EDT, [facility]erosol, [facility] fill upon patient request [...] 08/25/22 18:25:00 EDT, Route to Pharmacy Electronically, [facility], Partial fill upon patientrequest if the prescription is for a schedule II op... Start Date: 08/25/22 Status: Ordered aspirin 81 mg oral delayed release tablet 81 mg, 1, tablet, By Mouth, Daily, # 90 tablet, Refills 1, Tot. Refills 1, Maintenance, 08/25/22 18:25:00 EDT, Route to Pharmacy Electronically, [facility], Partial fill upon patient request if the prescription is for a schedule II opi... Start Date: 08/25/22 Status: Ordered atorvastatin 80 mg oral tablet 1 tablet = 80 mg, By Mouth, Daily, # 90 tablet, 1 Refills, Maintenance, 08/25/22 18:25:00 EDT, Tablet, [facility], Partial fill upon patient request if [...] 08/25/22 18:25:00 EDT, Route to Pharmacy Electronically, [facility], Partial fill upon patient request if [...] 0, Tot. Refills 0, Maintenance, Dexcom G7 profile shaper operator use as directed. e11.9, 09/14/22 10:15:00 [...] 1 Refills, Maintenance, 08/25/22 18:32:00 EDT, Tablet, [facility], Partial fill upon patient request if the prescription is for aschedule II opioid drug., 176, cm, 08/17/22 14:18:0... Start Date: 08/25/22 Status: Ordered ergocalciferol 20089 iu oral capsule 50,000 International_Units, 1, capsule, By Mouth, Every week, # 13 capsule, Refills 0, Tot. Refills0, Maintenance, 09/22/22 9:24:00 EDT, Route to Pharmacy Electronically, [facility],Partial fill upon patient request if the prescripti... Start Date: 09/22/22 Stop Date: 12/21/22 Status: Ordered Eucerin Plus topical lotion 1 application, Topically, 2 times a day, PRN for dry skin, # 180 mL, 0 Refills, Maintenance, 08/26/22 17:33:00 EDT, Lotion, [facility]., Partial fill upon patient request if the prescription is for a schedule II opioid drug., 1 applicat... Start Date: 08/26/22 Status: Ordered fluticasone 50 mcg/inh nasal spray 2 sprays = 100 mcg, Nares, Both, Daily in AM, # 16 Gm, 3 Refills, Maintenance, 08/25/22 18:32:00 EDT, Nasal [place], [facility]., Partial fill upon patient request if [...] 08/26/22 16:04:00 EDT, Route to Pharmacy Electronically, [facility]., 176, cm, 08/17/22 14:18:00 EDT, Height Start Date: 08/26/22 Stop Date: 5/21/23 Status: Ordered gabapentin 800 mg oral tablet [...] mL, 1 Refills, Maintenance, 08/25/22 18:32:00 EDT, [facility], Partial fill upon patient request if the prescription is for a schedule II opioid drug., 176, cm, 08/17/22 14:18:00... Start Date: 08/25/22 Status: Ordered hydrALAZINE 10 mg oral tablet 10 mg, 1, tablet, By Mouth, 2 times a day, # 180 tablet, Refills 1, Tot. Refills 1, Maintenance, 09/12/22 14:43:00 EDT, Route to Pharmacy Electronically, [facility], Partial fill uponpatient request if the prescription is for a schedu... Start Date: 09/12/22 Stop Date: 03/11/23 Status: Ordered insulin aspart 100 units/mL subcutaneous solution = 30 units, Subcutaneous Injection, 3 times a day before meals, # 15 mL, 1 Refills, Maintenance, 08/25/22 18:54:00 EDT, Injection, [facility]., label all scripts in [place], 176, cm, 08/17/22 14:18:00 EDT, Height Start [...] 08/09/22 11:45:00 EDT, Route to Pharmacy Electronically, [facility]., Partial fill upon patient request if [...] 1 Refills, Maintenance, 08/25/22 18:29:00 EDT, Aerosol, [facility]., Partial fill upon patient request if [...] 0 Refills, Maintenance, 08/09/22 13:00:00 EDT, Tablet, [facility] Partial fill upon patient request [...] 1 Refills, Maintenance, 08/09/22 11:45:00 EDT, Solution, [facility]., Partial fill upon patient request ifthe prescription is for a schedule II opioid drug.,... Start Date: 08/09/22 Status: Ordered Ventolin HFA 108 mcg/inh inhalation aerosol with adapter 2 puffs = 180 mcg, Inhalation, Every 4 hours, PRN Wheezing/Shortness of Breath, # 18 Gm, 0 Refills,Maintenance, 08/25/22 18:29:00 EDT, Inhaler, [facility]., Partial fill upon patient request if the prescription is for a schedule II opi... Start Date: 08/25/22 Status: Ordered ziprasidone 40 mg oral capsule 1 capsule = 40 mg, By Mouth, Daily in AM, # 90 each, 0 Refills, Maintenance, 08/09/22 13:01:00 EDT,Capsule, [facility], Partial fill upon patient request if the prescription is for aschedule II opioid drug., 176, cm, 08/04/22 16:02:0... Start Date: 08/09/22 Status: Ordered ziprasidone 80 mg oral capsule 1 capsule = 80 mg, By Mouth, Daily at supper, # 90 each, 0 Refills, Maintenance, 08/09/22 13:01:00 EDT, [facility], Partial fill upon patient request if [...] 2016 2information and pathology of colonospcy in [facility] 09-09-2020 note 3per note - CT at outside location 4Completed a colonoscopy 2020 and had a cecum polyp. Biopsy tubular adenoma. repeat colonoscopy 7 years Social History Social History Type Response Smoking Status Never smoker entered on: 03/12/18 Sex Patient Care team information Care Team Personnel Name: Julianna GROSS, Rosa Andres Position: [facility] Physician - Primary Care Member Role: PCP Address: Address: [address] [place] [address]- Care Team Related Persons Name: MARILU BOYD
--- OUTSIDE RECORDS SUMMARY | 2023-01-13 14:30 | XMS_ITS | Continuity of Care Document ---
Author Name Unknown Organization [facility] Address [address] [place] [address]- Care Team Providers Care Director Utilization Management Name Role Phone Rosa Levine MD Primary Care Physician Encounter [facility] [place] Date(s): 10/31/22 - 11/30/22 [facility] [address] [place] [address]- Attending Physician: AdmAni subramanian Admitting Physician: Admtr, Ar8 Referring Physician: Admtr, Ar8 Allergies, Adverse Reactions, [...] 1 Refills, Maintenance, 08/25/22 18:29:00 EDT, [facility]ol[facility] upon patient request if [...] 08/25/22 18:25:00 EDT, Route to Pharmacy Electronically, [facility]., Partial fill upon patientrequest if the prescription is for a schedule II op... Start Date: 08/25/22 Status: Ordered aspirin 81 mg oral delayed release tablet 81 mg, 1, tablet, By Mouth, Daily, # 90 tablet, Refills 1, Tot. Refills 1, Maintenance, 08/25/22 18:25:00 EDT, Route to Pharmacy Electronically, [facility]., Partial fill upon patient request if the prescription is for a schedule II opi... Start Date: 08/25/22 Status: Ordered atorvastatin 80 mg oral tablet 1 tablet = 80 mg, By Mouth, Daily, # 90 tablet, 1 Refills, Maintenance, 08/25/22 18:25:00 EDT, Tablet, [facility]., Partial fill upon patient request [...] 08/25/22 18:25:00 EDT, Route to Pharmacy Electronically, [facility], Partial fill upon patient request if [...] 0, Tot. Refills 0, Maintenance, Dexcom G7 utility technician use as directed. e11.9, 09/14/22 10:15:00 EDT, [...] 1 Refills, Maintenance, 08/25/22 18:32:00 EDT, Tablet, [facility], Partial fill upon patient request if the prescription is for aschedule II opioid drug., 176, cm, 08/17/22 14:18:0... Start Date: 08/25/22 Status: Ordered ergocalciferol 14610 iu oral capsule 50,000 International_Units, 1, capsule, By Mouth, Every week, # 13 capsule, Refills 0, Tot. Refills0, Maintenance, 09/22/22 9:24:00 EDT, Route to Pharmacy Electronically, [facility],Partial fill upon patient request if the prescripti... Start Date: 09/22/22 Stop Date: 12/21/22 Status: Ordered Eucerin Plus topical lotion 1 application, Topically, 2 times a day, PRN for dry skin, # 180 mL, 0 Refills, Maintenance, 08/26/22 17:33:00 EDT, Lotion, [facility]., Partial fill upon patient request if the prescription is for a schedule II opioid drug., 1 applicat... Start Date: 08/26/22 Status: Ordered fluticasone 50 mcg/inh nasal spray 2 sprays = 100 mcg, Nares, Both, Daily in AM, # 16 Gm, 3 Refills, Maintenance, 08/25/22 18:32:00 EDT, Nasal [place], [facility], Partial fill upon patient request if [...] 08/26/22 16:04:00 EDT, Route to Pharmacy Electronically, [facility]., 176, cm, 04/12/23 14:18:00 EDT, Height Start Date: 08/26/22 Stop [...] scale given before breakfast and dinner U500 [id number] 200 151-200 210 201-250 220 251-300 230 301-350 240 >350 250, # 30 mL, 0 Refills, Maintenance,... Start Date: 10/27/22 Status: Ordered insulin aspart 100 units/mL subcutaneous solution = 30 units, Subcutaneous Injection, 3 times a day before meals, # 15 mL, 1 Refills, Maintenance, 08/25/22 18:54:00 EDT, Injection, [facility], label all scripts in Tanzanian, 176, cm, 08/17/22 14:18:00 EDT, Height Start [...] 08/09/22 11:45:00 EDT, Route to Pharmacy Electronically, [facility], Partial fill upon patient request if the prescription is for a schedule II opi... Start Date: 08/09/22 Status: Ordered losartan 50 mg oral tablet 1 tablet = 50 mg, By Mouth, Daily, # 90 tablet, 1 Refills, Maintenance, 10/17/22 16:21:00 EDT, [facility], 176, cm, 09/19/22 13:07:00 EDT, Height [...] 1 Refills, Maintenance, 08/25/22 18:29:00 EDT, Aerosol, [facility]., Partial fill upon patient request if the prescription is for a schedule II opioid drug., 176, cm, 08/17/22 14:18:00 EDT... Start Date: 08/25/22 Status: Ordered traZODone 150 mg oral tablet 1 tablet = 150 mg, By Mouth, Daily at bedtime, # 90 tablet, 0 Refills, Maintenance, 08/09/22 13:00:00 EDT, Tablet, [facility]., Partial fill upon patient request [...] 1 Refills, Maintenance, 08/09/22 11:45:00 EDT, Solution, [facility]., Partial fill upon patient request ifthe prescription is for a schedule II opioid drug.,... Start Date: 08/09/22 Status: Ordered Ventolin HFA 108 mcg/inh inhalation aerosol with adapter 2 puffs = 180 mcg, Inhalation, Every 4 hours, PRN Wheezing/Shortness of Breath, # 18 Gm, 0 Refills,Maintenance, 08/25/22 18:29:00 EDT, [facility]haler, [facility] Partial fill upon patient request if the prescription is for a schedule II opi... Start Date: 08/25/22 Status: Ordered ziprasidone 40 mg oral capsule 1 capsule = 40 mg, By Mouth, Daily in AM, # 90 each, 0 Refills, Maintenance, 08/09/22 13:01:00 EDT,Capsule, [facility] Partial fill upon patient request if the prescription is for aschedule II opioid drug., 176, cm, 08/04/22 16:02:0... Start Date: 08/09/22 Status: Ordered ziprasidone 80 mg oral capsule 1 capsule = 80 mg, By Mouth, Daily at supper, # 90 each, 0 Refills, Maintenance, 08/09/22 13:01:00 EDT, [facility] Partial fill upon patient [...] 2016 2information and pathology of colonospcy in [facility] 09-09-2020 note 3per note - CT at outside location 4Completed a colonoscopy 2020 and had a cecum polyp. Biopsy tubular adenoma. repeat colonoscopy 7 years Social History Social History Type Response Smoking Status Never smoker entered on: 03/12/18 Sex Patient Care team information Care Team Personnel Name: Rosa Levine MD Position: [facility] Physician - Primary Care Member Role: PCP Address: Address: [address] [place] [address]- Care Team Related Persons Name: MARILU BOYD
--- OUTSIDE RECORDS SUMMARY | 2023-01-13 14:30 | XMS_ITS | Continuity of Care Document ---
Author Name Unknown Organization [facility] Address [address] [place] [id number]- Care Team Providers Care Burlap Spreader Name Role Phone Rosa Levine MD Primary Care Physician [place] [facility] [place] 10/[place]/22 - 11/27/22 [facility] [address] [place] [id number] Attending Physician: Ani Atkinson Admitting Physician: AdmAni subramanian Referring Physician: AdmtrAni Referring Physician: Sveta Lazaro Allergies, Adverse Reactions, Alerts Substance Reaction Severity [...] 1 Refills, Maintenance, 08/25/22 18:29:00 EDT, [facility]erosol, [facility], [facility] fill upon patient request [...] 08/25/22 18:25:00 EDT, Route to Pharmacy Electronically, [facility]., Partial fill upon patientrequest if the prescription is for a schedule II op... Start Date: 08/25/22 Status: Ordered aspirin 81 mg oral delayed release tablet 81 mg, 1, tablet, By Mouth, Daily, # 90 tablet, Refills 1, Tot. Refills 1, Maintenance, 08/25/22 18:25:00 EDT, Route to Pharmacy Electronically, [facility]., Partial fill upon patient request if the prescription is for a schedule II opi... Start Date: 08/25/22 Status: Ordered atorvastatin 80 mg oral tablet 1 tablet = 80 mg, By Mouth, Daily, # 90 tablet, 1 Refills, Maintenance, 08/25/22 18:25:00 EDT, Tablet, [facility]., Partial fill upon patient request if [...] 08/25/22 18:25:00 EDT, Route to Pharmacy Electronically, [facility]., Partial fill upon patient request if [...] 0, Tot. 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 e11.9, 09/14/22 10:15:00 EDT, [...] 1 Refills, Maintenance, 08/25/22 18:32:00 EDT, Tablet, [facility], Partial fill upon patient request if the prescription is for aschedule II opioid drug., 176, cm, 08/17/22 14:18:0... Start Date: 08/25/22 Status: Ordered ergocalciferol 28314 iu oral capsule 50,000 International_Units, 1, capsule, By Mouth, Every week, # 13 capsule, Refills 0, Tot. Refills0, Maintenance, 09/22/22 9:24:00 EDT, Route to Pharmacy Electronically, [facility],Partial fill upon patient request if the prescripti... Start Date: 09/22/22 Stop Date: 12/21/22 Status: Ordered Eucerin Plus topical lotion 1 application, Topically, 2 times a day, PRN for dry skin, # 180 mL, 0 Refills, Maintenance, 08/26/22 17:33:00 EDT, Lotion, [facility]., Partial fill upon patient request if the prescription is for a schedule II opioid drug., 1 applicat... Start Date: 08/26/22 Status: Ordered fluticasone 50 mcg/inh nasal spray 2 sprays = 100 mcg, Nares, Both, Daily in AM, # 16 Gm, 3 Refills, Maintenance, 08/25/22 18:32:00 EDT, Nasal [place], [facility]., Partial fill upon patient request if [...] 08/26/22 16:04:00 EDT, Route to Pharmacy Electronically, [facility], 176, cm, 08/17/22 14:18:00 EDT, Height Start [...] scale given before breakfast and dinner U500 -916 200 151-200 210 201-250 220 251-300 230 301-350 240 >350 250, # 30 mL, 0 Refills, Maintenance,... Start Date: 10/27/22 Status: Ordered insulin aspart 100 units/mL subcutaneous solution = 30 units, Subcutaneous Injection, 3 times a day before meals, # 15 mL, 1 Refills, Maintenance, 08/25/22 18:54:00 EDT, Injection, [facility], label all scripts in Kosovan, 176, cm, 08/17/22 14:18:00 EDT, Height Start [...] 08/09/22 11:45:00 EDT, Route to Pharmacy Electronically, [facility], Partial fill upon patient request if the prescription is for a schedule II opi... Start Date: 08/09/22 Status: Ordered losartan 50 mg oral tablet 1 tablet = 50 mg, By Mouth, Daily, # 90 tablet, 1 Refills, Maintenance, 10/17/22 16:21:00 EDT, [facility]., 176, cm, 09/19/22 13:07:00 EDT, Height Start [...] 1 Refills, Maintenance, 08/25/22 18:29:00 EDT, Aerosol, [facility]., Partial fill upon patient request if the prescription is for a schedule II opioid drug., 176, cm, 08/17/22 14:18:00 EDT... Start Date: 08/25/22 Status: Ordered traZODone 150 mg oral tablet 1 tablet = 150 mg, By Mouth, Daily at bedtime, # 90 tablet, 0 Refills, Maintenance, 08/09/22 13:00:00 EDT, Tablet, [facility]., Partial fill upon patient request if [...] 1 Refills, Maintenance, 08/09/22 11:45:00 EDT, Solution, [facility]., Partial fill upon patient request ifthe prescription is for a schedule II opioid drug.,... Start Date: 08/09/22 Status: Ordered Ventolin HFA 108 mcg/inh inhalation aerosol with adapter 2 puffs = 180 mcg, Inhalation, Every 4 hours, PRN Wheezing/Shortness of Breath, # 18 Gm, 0 Refills,Maintenance, 08/25/22 18:29:00 EDT, Inhaler, [facility] Partial fill upon patient request if the prescription is for a schedule II opi... Start Date: 08/25/22 Status: Ordered ziprasidone 40 mg oral capsule 1 capsule = 40 mg, By Mouth, Daily in AM, # 90 each, 0 Refills, Maintenance, 08/09/22 13:01:00 EDT,Capsule, [facility] Partial fill upon patient request if the prescription is for aschedule II opioid drug., 176, cm, 08/04/22 16:02:0... Start Date: 08/09/22 Status: Ordered ziprasidone 80 mg oral capsule 1 capsule = 80 mg, By Mouth, Daily at supper, # 90 each, 0 Refills, Maintenance, 08/09/22 13:01:00 EDT, [facility] Partial fill upon patient request [...] 2information and pathology of colonospcy in [facility] 09-09-2020 note 3per note - CT 11-2021 at outside location 4Completed a colonoscopy 2020 and had a cecum polyp. Biopsy tubular adenoma. repeat colonoscopy 7 years Social History Social History Type Response Smoking Status Never smoker entered on: 03/12/18 Sex Patient Care team information Care Team Personnel Name: Julianna GROSS, Rosa Andres Position: [facility] Physician - Primary Care Member Role: PCP Address: Address: [address] [place] [address]- Care Team Related Persons Name: MARILU BOYD
--- OUTSIDE RECORDS SUMMARY | 2023-01-13 14:30 | XMS_ITS | Continuity of Care Document ---
Author Name Unknown Organization [facility] Address [address] [place] [address]- Care Team Providers Care Leather Etcher Name Role Phone Rosa Levine MD Primary Care Physician [place] [facility] [place]22 [facility] [address] [place], [place] [address] Allergies, Adverse Reactions, Alerts Substance Reaction [...] Maintenance, 08/25/22 18:29:00 EDT, [facility]erosol, [facility] fill upon patient request [...] 08/25/22 18:25:00 EDT, Route to Pharmacy Electronically, [facility]., Partial fill upon patientrequest if the prescription is for a schedule II op... Start Date: 08/25/22 Status: Ordered aspirin 81 mg oral delayed release tablet 81 mg, 1, tablet, By Mouth, Daily, # 90 tablet, Refills 1, Tot. Refills 1, Maintenance, 08/25/22 18:25:00 EDT, Route to Pharmacy Electronically, [facility], Partial fill upon patient request if the prescription is for a schedule II opi... Start Date: 08/25/22 Status: Ordered atorvastatin 80 mg oral tablet 1 tablet = 80 mg, By Mouth, Daily, # 90 tablet, 1 Refills, Maintenance, 08/25/22 18:25:00 EDT, Tablet, [facility], Partial fill upon patient request if [...] 08/25/22 18:25:00 EDT, Route to Pharmacy Electronically, [facility], Partial fill upon patient request if [...] 0, Tot. Refills 0, Maintenance, Dexcom G7 folder and notcher use as directed. e11.9, 09/14/22 10:15:00 EDT, [...] 1 Refills, Maintenance, 08/25/22 18:32:00 EDT, Tablet, [facility], Partial fill upon patient request if the prescription is for aschedule II opioid drug., 176, cm, 08/17/22 14:18:0... Start Date: 08/25/22 Status: Ordered ergocalciferol 14785 iu oral capsule 50,000 International_Units, 1, capsule, By Mouth, Every week, # 13 capsule, Refills 0, Tot. Refills0, Maintenance, 09/22/22 9:24:00 EDT, Route to Pharmacy Electronically, [facility],Partial fill upon patient request if the prescripti... Start Date: 09/22/22 Stop Date: 12/21/22 Status: Ordered Eucerin Plus topical lotion 1 application, Topically, 2 times a day, PRN for dry skin, # 180 mL, 0 Refills, Maintenance, 08/26/22 17:33:00 EDT, Lotion, [facility]., Partial fill upon patient request if the prescription is for a schedule II opioid drug., 1 applicat... Start Date: 08/26/22 Status: Ordered fluticasone 50 mcg/inh nasal spray 2 sprays = 100 mcg, Nares, Both, Daily in AM, # 16 Gm, 3 Refills, Maintenance, 08/25/22 18:32:00 EDT, Nasal [place], [facility]., Partial fill upon patient request if [...] 08/26/22 16:04:00 EDT, Route to Pharmacy Electronically, [facility]., 176, cm, 08/17/22 14:18:00 EDT, Height [...] mL, 1 Refills, Maintenance, 08/25/22 18:32:00 EDT, [facility], Partial fill upon patient request if the prescription is for a schedule II opioid drug., 176, cm, 08/17/22 14:18:00... Start Date: 08/25/22 Status: Ordered hydrALAZINE 10 mg oral tablet 10 mg, 1, tablet, By Mouth, 2 times a day, # 180 tablet, Refills 1, Tot. Refills 1, Maintenance, 09/12/22 14:43:00 EDT, Route to Pharmacy Electronically, [facility], Partial fill uponpatient request if the prescription is for a schedu... Start Date: 09/12/22 Stop Date: 03/11/23 Status: Ordered insulin aspart 100 units/mL subcutaneous solution = 30 units, Subcutaneous Injection, 3 times a day before meals, # 15 mL, 1 Refills, Maintenance, 08/25/22 18:54:00 EDT, Injection, [facility]., label all scripts in Sudanese, 176, cm, 08/17/22 14:18:00 EDT, Height Start [...] 08/09/22 11:45:00 EDT, Route to Pharmacy Electronically, [facility]., Partial fill upon patient request if [...] 1 Refills, Maintenance, 08/25/22 18:29:00 EDT, Aerosol, [facility]., Partial fill upon patient request if [...] Maintenance, 08/09/22 13:00:00 EDT, Tablet, [facility] Partial fill upon patient request if [...] 1 Refills, Maintenance, 08/09/22 11:45:00 EDT, Solution, [facility]., Partial fill upon patient request ifthe prescription is for a schedule II opioid drug.,... Start Date: 08/09/22 Status: Ordered Ventolin HFA 108 mcg/inh inhalation aerosol with adapter 2 puffs = 180 mcg, Inhalation, Every 4 hours, PRN Wheezing/Shortness of Breath, # 18 Gm, 0 Refills,Maintenance, 08/25/22 18:29:00 EDT, Inhaler, [facility]., Partial fill upon patient request if the prescription is for a schedule II opi... Start Date: 08/25/22 Status: Ordered ziprasidone 40 mg oral capsule 1 capsule = 40 mg, By Mouth, Daily in AM, # 90 each, 0 Refills, Maintenance, 08/09/22 13:01:00 EDT,Capsule, [facility], Partial fill upon patient request if the prescription is for aschedule II opioid drug., 176, cm, 08/04/22 16:02:0... Start Date: 08/09/22 Status: Ordered ziprasidone 80 mg oral capsule 1 capsule = 80 mg, By Mouth, Daily at supper, # 90 each, 0 Refills, Maintenance, 08/09/22 13:01:00 EDT, [facility], Partial fill upon patient request if [...] 2016 [facility] 09-09-2020 note 3per note - CT at outside location 4Completed a colonoscopy 2020 and had a cecum polyp. Biopsy tubular adenoma. repeat colonoscopy 7 years Social History Social History Type Response Smoking Status Never smoker entered on: 03/12/18 Sex Patient Care team information Care Team Personnel Name: Julianna GROSS, Rosa Andres Position: [facility] Physician - Primary Care Member Role: PCP Address: Address: [address] [place] [address]- Care Team Related Persons Name: MARILU BOYD
--- OUTSIDE RECORDS SUMMARY | 2023-01-13 14:30 | XMS_ITS | Continuity of Care Document ---
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 Start Date: 08/25/22 Status: Ordered aspirin 81 mg oral delayed release tablet 81 mg, 1, tablet, By Mouth, Daily, # 90 tablet, Refills 1, Tot. Refills 1, Maintenance, 08/25/22 18:25:00 EDT, Route to Pharmacy Electronically, [facility], Partial fill upon patient request if the prescription is for a schedule II opi... Start Date: 08/25/22 Status: Ordered atorvastatin 80 mg oral tablet 1 tablet = 80 mg, By Mouth, Daily, # 90 tablet, 1 Refills, Maintenance, 08/25/22 18:25:00 EDT, Tablet, [facility], Partial fill upon patient request if the [...] EDT, Route to Pharmacy Electronically, [facility], Partial fill upon patient request if the [...] 0, Tot. Refills 0, Maintenance, Dexcom G7 custom dressmaker use as directed. e11.9, 09/14/22 10:15:00 EDT, [...] 1 Refills, Maintenance, 08/25/22 18:32:00 EDT, Tablet, [facility], Partial fill upon patient request if the prescription is for aschedule II opioid drug., 176, cm, 08/17/22 14:18:0... Start Date: 08/25/22 Status: Ordered ergocalciferol 12809 iu oral capsule 50,000 International_Units, 1, capsule, By Mouth, Every week, # 13 capsule, Refills 0, Tot. Refills0, Maintenance, 09/22/22 9:24:00 EDT, Route to Pharmacy Electronically, [facility],Partial fill upon patient request if the prescripti... [...] 3 Refills, Maintenance, 08/25/22 18:32:00 EDT, Nasal [place], [facility]., Partial fill upon patient request [...] mL, 1 Refills, Maintenance, 08/25/22 18:32:00 EDT, [facility], Partial fill upon patient request if the prescription is for a schedule II opioid drug., 176, cm, 08/17/22 14:18:00... Start Date: 08/25/22 Status: Ordered hydrALAZINE 10 mg oral tablet 10 mg, 1, tablet, By Mouth, 2 times a day, # 180 tablet, Refills 1, Tot. Refills 1, Maintenance, 09/12/22 14:43:00 EDT, Route to Pharmacy Electronically, [facility], Partial fill uponpatient request if the prescription is for a schedu... Start Date: 09/12/22 Stop Date: 03/11/23 Status: Ordered insulin aspart 100 units/mL subcutaneous solution = 30 units, Subcutaneous Injection, 3 times a day before meals, # 15 mL, 1 Refills, Maintenance, 08/25/22 18:54:00 EDT, Injection, [facility]., label all scripts in Thai, 176, cm, 08/17/22 14:18:00 EDT, Height Start [...] 08/09/22 11:45:00 EDT, Route to Pharmacy Electronically, [facility]., [...] 1 Refills, Maintenance, 08/25/22 18:29:00 EDT, Aerosol, [facility]., Partial fill upon patient request [...] 0 Refills, Maintenance, 08/09/22 13:00:00 EDT, Tablet, [facility] Partial fill upon patient request [...] 1 Refills, Maintenance, 08/09/22 11:45:00 EDT, Solution, [facility]., Partial fill upon patient request ifthe prescription is for a schedule II opioid drug.,... Start Date: 08/09/22 Status: Ordered Ventolin HFA 108 mcg/inh inhalation aerosol with adapter 2 puffs = 180 mcg, Inhalation, Every 4 hours, PRN Wheezing/Shortness of Breath, # 18 Gm, 0 Refills,Maintenance, 08/25/22 18:29:00 EDT, Inhaler, [facility]., Partial fill upon patient request if the prescription is for a schedule II opi... Start Date: 08/25/22 Status: Ordered ziprasidone 40 mg oral capsule 1 capsule = 40 mg, By Mouth, Daily in AM, # 90 each, 0 Refills, Maintenance, 08/09/22 13:01:00 EDT,Capsule, [facility], Partial fill upon patient request if the prescription is for aschedule II opioid drug., 176, cm, 08/04/22 16:02:0... Start Date: 08/09/22 Status: Ordered ziprasidone 80 mg oral capsule 1 capsule = 80 mg, By Mouth, Daily at supper, # 90 each, 0 Refills, Maintenance, 08/09/22 13:01:00 EDT, [facility], Partial fill upon patient request if the [...] 2016 2information and pathology of colonospcy in [facility] 09-09-2020 note 3per note - CT at outside location 4Completed a colonoscopy 2020 and had a cecum polyp. Biopsy tubular adenoma. repeat colonoscopy 7 years Social History Social History Type Response Smoking Status Never smoker entered on: 03/12/18 Sex Patient Care team information Care Team Personnel Name: Julianna GROSS, Rosa Andres Position: [facility] Physician - Primary Care Member Role: PCP Address: Address: [address] [place] [address]- Care Team Related Persons Name: MARILU BOYD
--- OUTSIDE RECORDS SUMMARY | 2023-01-13 14:30 | XMS_ITS | Continuity of Care Document ---
Author Name Unknown Organization [facility] Address [address] [place] [address]- Care Team Providers Care Dish Cloth Inspector Name Role Phone Rosa Levine MD Primary Care Physician [place] [facility] [place](s): 09/02/22 - 10/02/22 [facility] [address] [place] [address]- Allergies, Adverse Reactions, Alerts Substance Reaction Severity [...] 1 Refills, Maintenance, 08/25/22 18:29:00 EDT, [facility] [...] 08/25/22 18:25:00 EDT, Route to Pharmacy Electronically, [facility], Partial fill upon patientrequest if the prescription is for a schedule II op... Start Date: 08/25/22 Status: Ordered aspirin 81 mg oral delayed release tablet 81 mg, 1, tablet, By Mouth, Daily, # 90 tablet, Refills 1, Tot. Refills 1, Maintenance, 08/25/22 18:25:00 EDT, Route to Pharmacy Electronically, [facility], Partial fill upon patient request if the prescription is for a schedule II opi... Start Date: 08/25/22 Status: Ordered atorvastatin 80 mg oral tablet 1 tablet = 80 mg, By Mouth, Daily, # 90 tablet, 1 Refills, Maintenance, 08/25/22 18:25:00 EDT, Tablet, [facility], Partial fill upon patient request [...] 08/25/22 18:25:00 EDT, Route to Pharmacy Electronically, [facility], Partial fill upon patient request [...] 0, Tot. 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 e11.9, 09/14/22 10:15:00 EDT, [...] 1 Refills, Maintenance, 08/25/22 18:32:00 EDT, Tablet, [facility], Partial fill upon patient request if the prescription is for aschedule II opioid drug., 176, cm, 08/17/22 14:18:0... Start Date: 08/25/22 Status: Ordered ergocalciferol 25934 iu oral capsule 50,000 International_Units, 1, capsule, By Mouth, Every week, # 13 capsule, Refills 0, Tot. Refills0, Maintenance, 09/22/22 9:24:00 EDT, Route to Pharmacy Electronically, [facility],Partial fill upon patient request if the prescripti... Start Date: 09/22/22 Stop Date: 12/21/22 Status: Ordered Eucerin Plus topical lotion 1 application, Topically, 2 times a day, PRN for dry skin, # 180 mL, 0 Refills, Maintenance, 08/26/22 17:33:00 EDT, Lotion, [facility]., Partial fill upon patient request if the prescription is for a schedule II opioid drug., 1 applicat... Start Date: 08/26/22 Status: Ordered fluticasone 50 mcg/inh nasal spray 2 sprays = 100 mcg, Nares, Both, Daily in AM, # 16 Gm, 3 Refills, Maintenance, 08/25/22 18:32:00 EDT, Nasal [place], [facility]., Partial fill upon patient request if [...] 08/26/22 16:04:00 EDT, Route to Pharmacy Electronically, [facility]., 176, cm, 08/17/22 14:18:00 EDT, Height [...] mL, 1 Refills, Maintenance, 08/25/22 18:32:00 EDT, [facility], Partial fill upon patient request if the prescription is for a schedule II opioid drug., 176, cm, 08/17/22 14:18:00... Start Date: 08/25/22 Status: Ordered hydrALAZINE 10 mg oral tablet 10 mg, 1, tablet, By Mouth, 2 times a day, # 180 tablet, Refills 1, Tot. Refills 1, Maintenance, 09/12/22 14:43:00 EDT, Route to Pharmacy Electronically, [facility], Partial fill uponpatient request if the prescription is for a schedu... Start Date: 09/12/22 Stop Date: 03/11/23 Status: Ordered insulin aspart 100 units/mL subcutaneous solution = 30 units, Subcutaneous Injection, 3 times a day before meals, # 15 mL, 1 Refills, Maintenance, 08/25/22 18:54:00 EDT, Injection, [facility]., label all scripts in Maldivian, 176, cm, 08/17/22 14:18:00 EDT, Height Start [...] 08/09/22 11:45:00 EDT, Route to Pharmacy Electronically, [facility]., Partial fill upon patient request if [...] 1 Refills, Maintenance, 08/25/22 18:29:00 EDT, Aerosol, [facility]., Partial fill upon patient request if [...] 0 Refills, Maintenance, 08/09/22 13:00:00 EDT, Tablet, [facility] Partial fill upon patient request if [...] 1 Refills, Maintenance, 08/09/22 11:45:00 EDT, Solution, [facility]., Partial fill upon patient request ifthe prescription is for a schedule II opioid drug.,... Start Date: 08/09/22 Status: Ordered Ventolin HFA 108 mcg/inh inhalation aerosol with adapter 2 puffs = 180 mcg, Inhalation, Every 4 hours, PRN Wheezing/Shortness of Breath, # 18 Gm, 0 Refills,Maintenance, 08/25/22 18:29:00 EDT, Inhaler, [facility]., Partial fill upon patient request if the prescription is for a schedule II opi... Start Date: 08/25/22 Status: Ordered ziprasidone 40 mg oral capsule 1 capsule = 40 mg, By Mouth, Daily in AM, # 90 each, 0 Refills, Maintenance, 08/09/22 13:01:00 EDT,Capsule, [facility], Partial fill upon patient request if the prescription is for aschedule II opioid drug., 176, cm, 08/04/22 16:02:0... Start Date: 08/09/22 Status: Ordered ziprasidone 80 mg oral capsule 1 capsule = 80 mg, By Mouth, Daily at supper, # 90 each, 0 Refills, Maintenance, 08/09/22 13:01:00 EDT, [facility], Partial fill upon patient request [...] 2016 2information and pathology of colonospcy in [facility] 09-09-2020 note 3per note - CT at outside location 4Completed a colonoscopy 2020 and had a cecum polyp. Biopsy tubular adenoma. repeat colonoscopy 7 years Social History Social History Type Response Smoking Status Never smoker entered on: 03/12/18 Sex Patient Care team information Care Team Personnel Name: Julianna GROSS, Rosa Andres Position: [facility] Physician - Primary Care Member Role: PCP Address: Address: [address] [place] [address]- Care Team Related Persons Name: MARILU BOYD
--- OUTSIDE RECORDS SUMMARY | 2023-01-13 14:30 | XMS_ITS | Continuity of Care Document ---
Author Name Unknown Organization [facility] Address [address] [place] [address]- Care Team Providers Care Home Health Scheduler Name Role Phone Rosa Levine MD Primary Care Physician Encounter [facility] [place] Date(s): 08/02/22 - 09/01/22 [facility] [address] [place] [address]- Allergies, Adverse Reactions, Alerts Substance Reaction Severity [...] 1 Refills, Maintenance, 08/25/22 18:29:00 EDT, [facility] upon [facility] [...] opioid drug. Start Date: 08/09/22 Status: Ordered Alcohol Pads See Instructions, # 200 each, Refills 3, Tot. Refills 3, Maintenance, use to clean the skin up to 9times daily before checking blood sugar and injecting insulin, 08/25/22 18:32:00 EDT, Supply, 176, cm, 08/17/22 14:18:00 EDT, Height Start Date: 08/25/22 Status: Ordered allopurinol 100 mg oral tablet 100 mg, 1, tablet, By Mouth, Daily, # 90 tablet, Refills 1, Tot. Refills 1, Maintenance, 08/25/22 18:25:00 EDT, Route to Pharmacy Electronically, [facility], Partial fill upon patientrequest if the prescription is for a schedule II op... Start Date: 08/25/22 Status: Ordered aspirin 81 mg oral delayed release tablet 81 mg, 1, tablet, By Mouth, Daily, # 90 tablet, Refills 1, Tot. Refills 1, Maintenance, 08/25/22 18:25:00 EDT, Route to Pharmacy Electronically, [facility]., Partial fill upon patient request if the prescription is for a schedule II opi... Start Date: 08/25/22 Status: Ordered atorvastatin 80 mg oral tablet 1 tablet = 80 mg, By Mouth, Daily, # 90 tablet, 1 Refills, Maintenance, 08/25/22 18:25:00 EDT, Tablet, [facility]., Partial fill upon patient request if the prescription is for a schedule II opioid drug., 176, cm, 08/17/22 14:18:00 EDT,... Start Date: 08/25/22 Status: Ordered carvedilol 25 mg oral tablet 25 mg, 1, tablet, By Mouth, 2 times a day, with breakfast and dinner, # 180 tablet, Refills 1, Tot.Refills 1, Maintenance, 08/25/22 18:25:00 EDT, Route to Pharmacy Electronically, [facility]., Partial fill upon patient request if [...] EDT, Supply Start Date: 08/17/22 Status: Ordered diclofenac 1% topical gel 1 [...] 1 Refills, Maintenance, 08/25/22 18:32:00 EDT, Tablet, [facility]., Partial fill upon patient request if the prescription is for aschedule II opioid drug., 176, cm, 08/17/22 14:18:0... Start Date: 08/25/22 Status: Ordered ergocalciferol 73752 iu oral capsule 50,000 International_Units, 1, capsule, By Mouth, Every week, # 5 capsule, Refills 0, Tot. Refills 0, Maintenance, 08/26/22 16:04:00 EDT, Route to Pharmacy Electronically, [facility].,176, cm, 08/17/22 14:18:00 EDT, Height Start Date: 08/26/22 Stop Date: 09/25/22 Status: Ordered Eucerin Plus topical lotion 1 application, Topically, 2 times a day, PRN for dry skin, # 180 mL, 0 Refills, Maintenance, 08/26/22 17:33:00 EDT, Lotion, [facility]., Partial fill upon patient request if the prescription is for a schedule II opioid drug., 1 applicat... Start Date: 08/26/22 Status: Ordered fluticasone 50 mcg/inh nasal spray 2 sprays = 100 mcg, Nares, Both, Daily in AM, # 16 Gm, 3 Refills, Maintenance, 08/25/22 18:32:00 EDT, Nasal [place], [facility]., Partial fill upon patient request if [...] 08/26/22 16:04:00 EDT, Route to Pharmacy Electronically, [facility]., 176, cm, 08/17/22 14:18:00 EDT, Height [...] mL, 1 Refills, Maintenance, 08/25/22 18:32:00 EDT, [facility], Partial fill upon patient request if the prescription is for a schedule II opioid drug., 176, cm, 08/17/22 14:18:00... Start Date: 08/25/22 Status: Ordered hydrocortisone 2.5% topical cream 1 applicator, Topically, Daily, for 14 days, apply to leg rash, # 20 Gm, 0 Refills, Acute 09/09/22 16:05:00 EDT, 08/26/22 16:05:00 EDT, Cream, [facility], label in Lebanese, 1 applicator Topically Daily,x14 days,Instr:apply to leg rash,... Start Date: 08/26/22 Stop Date: 09/09/22 Status: Ordered insulin aspart 100 units/mL subcutaneous solution = 30 units, Subcutaneous Injection, 3 times a day before meals, # 15 mL, 1 Refills, Maintenance, 08/25/22 18:54:00 EDT, Injection, [facility], label all scripts in Lebanese, 176, cm, 08/17/22 14:18:00 EDT, Height Start [...] 08/09/22 11:45:00 EDT, Route to Pharmacy Electronically, [facility], Partial fill upon patient request if the prescription is for a schedule II opi... Start Date: 08/09/22 Status: Ordered OneTouch Verio Lancets See Instructions, # 200 each, Refills 1, Tot. Refills 1, Maintenance, 3 times a day before meals and bedtime, 08/25/22 18:32:00 EDT, Supply, 176, cm, 08/17/22 14:18:00 EDT, Height Start Date: 08/25/22 Status: Ordered OneTouch Verio Test Strips See Instructions, # 200 each, Refills 1, Tot. Refills 1, Maintenance, 3 times a day before meals and bedtime, 08/25/22 18:32:00 EDT, Supply, 176, cm, 08/17/22 14:18:00 EDT, Height Start Date: 08/25/22 Status: Ordered pantoprazole 40 mg oral delayed release tablet 1 tablet = 40 mg, By Mouth, Daily, # 7 tablet, 0 Refills, Maintenance, 08/26/22 14:59:00 EDT, EC Tablet, 176, cm, 08/17/22 14:18:00 EDT, Height Start Date: 08/26/22 Stop Date: 09/02/22 Status: Ordered Pen [place], 32 G x 4 mm BD Ultra Fine III See instructions, 4 times a day, # 200 each, Refills 3, Tot. Refills 3, Maintenance, use to inject insulin up to 5 times daily, 08/25/22 18:32:00 EDT, Supply, 176, cm, 08/17/22 14:18:00 EDT, Height Start Date: 08/25/22 Status: Ordered Spiriva Respimat 1.25 mcg/inh inhalation aerosol 2 puffs = 2.5 mcg, Inhalation, Daily, # 3 each, 1 Refills, Maintenance, 08/25/22 18:29:00 EDT, Aerosol, [facility], Partial fill upon patient request if the prescription is for a schedule II opioid drug., 176, cm, 08/17/22 14:18:00 EDT... Start Date: 08/25/22 Status: Ordered spironolactone 25 mg oral tablet 25 mg, 1, tablet, By Mouth, Daily, # 30 tablet, Refills 0, Maintenance, 08/09/22 13:18:00 EDT, Partial fill upon patient request if the prescription is for a schedule II opioid drug. Start Date: 08/09/22 Status: Ordered traMADol 50 mg oral tablet [...] 0 Refills, Maintenance, 08/09/22 13:00:00 EDT, Tablet, [facility] Partial fill upon patient request [...] 1 Refills, Maintenance, 08/09/22 11:45:00 EDT, Solution, [facility] Partial fill upon patient request ifthe prescription is for a schedule II opioid drug.,... Start Date: 08/09/22 Status: Ordered Ventolin HFA 108 mcg/inh inhalation aerosol with adapter 2 puffs = 180 mcg, Inhalation, Every 4 hours, PRN Wheezing/Shortness of Breath, # 18 Gm, 0 Refills,Maintenance, 08/25/22 18:29:00 EDT, Inhaler, [facility] Partial fill upon patient request if the prescription is for a schedule II opi... Start Date: 08/25/22 Status: Ordered Zetia 10 mg oral tablet 1 tablet = 10 mg, By Mouth, Daily, # 30 tablet, 0 Refills, Maintenance, 08/26/22 14:58:00 EDT, Tablet, [facility] Partial fill upon patient request if the prescription is for a schedule II opioid drug., 176, cm, 08/17/22 14:18:00 EDT,... Start Date: 08/26/22 Stop Date: 09/25/22 Status: Ordered ziprasidone 40 mg oral capsule 1 capsule = 40 mg, By Mouth, Daily in AM, # 90 each, 0 Refills, Maintenance, 08/09/22 13:01:00 EDT,Capsule, [facility] Partial fill upon patient request if the prescription is for aschedule II opioid drug., 176, cm, 08/04/22 16:02:0... Start Date: 08/09/22 Status: Ordered ziprasidone 80 mg oral capsule 1 capsule = 80 mg, By Mouth, Daily at supper, # 90 each, 0 Refills, Maintenance, 08/09/22 13:01:00 EDT[facility] upon patient request [...] 2016 2information and pathology of colonospcy in [facility] 09-09-2020 note 3per note - CT at outside location 4Completed a colonoscopy 2020 and had a cecum polyp. Biopsy tubular adenoma. repeat colonoscopy 7 years Social History Social History Type Response Smoking Status Never smoker entered on: 03/12/18 Sex Patient Care team information Care Team Personnel Name: Rosa Levine MD Position: [facility] Primary Care Physician Member Role: PCP Address: Address: [address] [place] [phone]- Care Team Related Persons Name: MARILU BOYD
--- OUTSIDE RECORDS SUMMARY | 2023-01-13 14:30 | XMS_ITS | Continuity of Care Document ---
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 Name Role Phone Rosa Levine MD Primary Care Physician Encounter [facility] [place] Date(s): 08/09/22 - 09/23/22 [facility] [address] [place], [place] [address] Attending Physician: Not on Staff, Attending MD Allergies, Adverse Reactions, Alerts Substance Reaction Severity [...] 1 Refills, Maintenance, 08/25/22 18:29:00 EDT, [facility] [...] 08/25/22 18:25:00 EDT, Route to Pharmacy Electronically, [facility] Partial fill upon patientrequest if the prescription is for a schedule II op... Start Date: 08/25/22 Status: Ordered aspirin 81 mg oral delayed release tablet 81 mg, 1, tablet, By Mouth, Daily, # 90 tablet, Refills 1, Tot. Refills 1, Maintenance, 08/25/22 18:25:00 EDT, Route to Pharmacy Electronically, [facility] Partial fill upon patient request if the prescription is for a schedule II opi... Start Date: 08/25/22 Status: Ordered atorvastatin 80 mg oral tablet 1 tablet = 80 mg, By Mouth, Daily, # 90 tablet, 1 Refills, Maintenance, 08/25/22 18:25:00 EDT, Tablet, [facility] Partial fill upon patient request if the [...] 08/25/22 18:25:00 EDT, Route to Pharmacy Electronically, [facility]., Partial fill upon patient request if the [...] 0, Tot. 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 e11.9, 09/14/22 10:15:00 EDT, [...] 1 Refills, Maintenance, 08/25/22 18:32:00 EDT, Tablet, [facility], Partial fill upon patient request if the prescription is for aschedule II opioid drug., 176, cm, 08/17/22 14:18:0... Start Date: 08/25/22 Status: Ordered ergocalciferol 52704 iu oral capsule 50,000 International_Units, 1, capsule, By Mouth, Every week, # 13 capsule, Refills 0, Tot. Refills0, Maintenance, 09/22/22 9:24:00 EDT, Route to Pharmacy Electronically, [facility],Partial fill upon patient request if the prescripti... Start Date: 09/22/22 Stop Date: 12/21/22 Status: Ordered Eucerin Plus topical lotion 1 application, Topically, 2 times a day, PRN for dry skin, # 180 mL, 0 Refills, Maintenance, 08/26/22 17:33:00 EDT, Lotion, [facility], Partial fill upon patient request if the prescription is for a schedule II opioid drug., 1 applicat... Start Date: 08/26/22 Status: Ordered fluticasone 50 mcg/inh nasal spray 2 sprays = 100 mcg, Nares, Both, Daily in AM, # 16 Gm, 3 Refills, Maintenance, 08/25/22 18:32:00 EDT, Nasal [place], [facility], Partial fill upon patient request if [...] EDT, Route to Pharmacy Electronically, [facility], 176, cm, 08/17/22 14:18:00 EDT, Height Start [...] mL, 1 Refills, Maintenance, 08/25/22 18:32:00 EDT, [facility], Partial fill upon patient request if the prescription is for a schedule II opioid drug., 176, cm, 08/17/22 14:18:00... Start Date: 08/25/22 Status: Ordered hydrALAZINE 10 mg oral tablet 10 mg, 1, tablet, By Mouth, 2 times a day, # 180 tablet, Refills 1, Tot. Refills 1, Maintenance, 09/12/22 14:43:00 EDT, Route to Pharmacy Electronically, [facility], Partial fill uponpatient request if the prescription is for a schedu... Start Date: 09/12/22 Stop Date: 03/11/23 Status: Ordered insulin aspart 100 units/mL subcutaneous solution = 30 units, Subcutaneous Injection, 3 times a day before meals, # 15 mL, 1 Refills, Maintenance, 08/25/22 18:54:00 EDT, Injection, [facility] label all scripts in [place], 176, cm, 08/17/22 14:18:00 EDT, Height Start [...] Acute 09/26/22 13:58:00 EDT, 09/19/22 13:58:00 EDT, [facility] Partial fill upon patient request if the prescription is for a schedule II opioid drug., 176,... Start Date: 09/19/22 Stop Date: 09/26/22 Status: Ordered losartan 50 mg oral tablet 50 mg, 1, tablet, By Mouth, Daily, # 90 tablet, Refills 0, Tot. Refills 0, Maintenance, 08/09/22 11:45:00 EDT, Route to Pharmacy Electronically, [facility] Partial fill upon patient request if the [...] Refills, Maintenance, 08/25/22 18:29:00 EDT, Aerosol, [facility] Partial fill upon patient request if the [...] 0 Refills, Maintenance, 08/09/22 13:00:00 EDT, Tablet, [facility] Partial fill upon patient request [...] 1 Refills, Maintenance, 08/09/22 11:45:00 EDT, Solution, [facility] Partial fill upon patient request ifthe prescription is for a schedule II opioid drug.,... Start Date: 08/09/22 Status: Ordered Ventolin HFA 108 mcg/inh inhalation aerosol with adapter 2 puffs = 180 mcg, Inhalation, Every 4 hours, PRN Wheezing/Shortness of Breath, # 18 Gm, 0 Refills,Maintenance, 08/25/22 18:29:00 EDT, Inhaler, [facility] Partial fill upon patient request if the prescription is for a schedule II opi... Start Date: 08/25/22 Status: Ordered Zetia 10 mg oral tablet 1 tablet = 10 mg, By Mouth, Daily, # 30 tablet, 0 Refills, Maintenance, 08/26/22 14:58:00 EDT, Tablet, [facility] Partial fill upon patient request if the prescription is for a schedule II opioid drug., 176, cm, 08/17/22 14:18:00 EDT,... Start Date: 08/26/22 Stop Date: 09/25/22 Status: Ordered ziprasidone 40 mg oral capsule 1 capsule = 40 mg, By Mouth, Daily in AM, # 90 each, 0 Refills, Maintenance, 08/09/22 13:01:00 EDT,Capsule, [facility] Partial fill upon patient request if the prescription is for aschedule II opioid drug., 176, cm, 08/04/22 16:02:0... Start Date: 08/09/22 Status: Ordered ziprasidone 80 mg oral capsule 1 capsule = 80 mg, By Mouth, Daily at supper, # 90 each, 0 Refills, Maintenance, 08/09/22 13:01:00 EDT, [facility] Partial fill upon patient request [...] Personnel Name: Julianna GROSS, Rosa Andres Position: [facility] Primary Care Physician Member Role: PCP Address: Address: [address] [place] [id number]- Care Team Related Persons Name: MARILU BOYD
--- OUTSIDE RECORDS SUMMARY | 2023-01-13 14:30 | XMS_ITS | Continuity of Care Document ---
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 Start Date: 08/25/22 Status: Ordered aspirin 81 mg oral delayed release tablet 81 mg, 1, tablet, By Mouth, Daily, # 90 tablet, Refills 1, Tot. Refills 1, Maintenance, 08/25/22 18:25:00 EDT, Route to Pharmacy Electronically, [facility], Partial fill upon patient request if the prescription is for a schedule II opi... Start Date: 08/25/22 Status: Ordered atorvastatin 80 mg oral tablet 1 tablet = 80 mg, By Mouth, Daily, # 90 tablet, 1 Refills, Maintenance, 08/25/22 18:25:00 EDT, Tablet, [facility], Partial fill upon patient request if the prescription is for a schedule II opioid drug., 176, cm, 08/17/22 14:18:00 EDT,... Start Date: 08/25/22 Status: Ordered carvedilol 25 mg oral tablet 25 mg, 1, tablet, By Mouth, 2 times a day, with breakfast and dinner, # 180 tablet, Refills 1, Tot.Refills 1, Maintenance, 08/25/22 18:25:00 EDT, Route to Pharmacy Electronically, [facility], Partial fill upon patient request if the [...] 1 Refills, Maintenance, 08/25/22 18:32:00 EDT, Tablet, [facility], Partial fill upon patient request if the prescription is for aschedule II opioid drug., 176, cm, 08/17/22 14:18:0... Start Date: 08/25/22 Status: Ordered ergocalciferol 35699 iu oral capsule 50,000 International_Units, 1, capsule, By Mouth, Every week, # 5 capsule, Refills 0, Tot. Refills 0, Maintenance, 08/26/22 16:04:00 EDT, Route to Pharmacy Electronically, [facility].,176, cm, 08/17/22 14:18:00 EDT, Height Start Date: 08/26/22 Stop Date: 09/25/22 Status: Ordered Eucerin Plus topical lotion 1 application, Topically, 2 times a day, PRN for dry skin, # 180 mL, 0 Refills, Maintenance, 08/26/22 17:33:00 EDT, Lotion, [facility], Partial fill upon patient request if the prescription is for a schedule II opioid drug., 1 applicat... Start Date: 08/26/22 Status: Ordered fluticasone 50 mcg/inh nasal spray 2 sprays = 100 mcg, Nares, Both, Daily in AM, # 16 Gm, 3 Refills, Maintenance, 08/25/22 18:32:00 EDT, Nasal [place], [facility], Partial fill upon patient request if the [...] 08/26/22 16:04:00 EDT, Route to Pharmacy Electronically, [facility]., 176, cm, 08/17/22 14:18:00 EDT, Height [...] mL, 1 Refills, Maintenance, 08/25/22 18:32:00 EDT, [facility], Partial fill upon patient request if the prescription is for a schedule II opioid drug., 176, cm, 08/17/22 14:18:00... Start Date: 08/25/22 Status: Ordered hydrocortisone 2.5% topical cream 1 applicator, Topically, Daily, for 14 days, apply to leg rash, # 20 Gm, 0 Refills, Acute 09/09/22 16:05:00 EDT, 08/26/22 16:05:00 EDT, Cream, [facility]., label in Trinidadian, 1 applicator Topically Daily,x14 days,Instr:apply to leg rash,... Start Date: 08/26/22 Stop Date: 09/09/22 Status: Ordered insulin aspart 100 units/mL subcutaneous solution = 30 units, Subcutaneous Injection, 3 times a day before meals, # 15 mL, 1 Refills, Maintenance, 08/25/22 18:54:00 EDT, Injection, [facility]., label all scripts in Trinidadian, 176, cm, 08/17/22 14:18:00 EDT, Height Start [...] 08/09/22 11:45:00 EDT, Route to Pharmacy Electronically, [facility], Partial fill upon patient request if the [...] 1 Refills, Maintenance, 08/25/22 18:29:00 EDT, Aerosol, [facility]., Partial fill upon patient request if [...] 0 Refills, Maintenance, 08/09/22 13:00:00 EDT, Tablet, [facility] Partial fill upon patient request [...] 1 Refills, Maintenance, 08/09/22 11:45:00 EDT, Solution, [facility] Partial fill upon patient request ifthe prescription is for a schedule II opioid drug.,... Start Date: 08/09/22 Status: Ordered Ventolin HFA 108 mcg/inh inhalation aerosol with adapter 2 puffs = 180 mcg, Inhalation, Every 4 hours, PRN Wheezing/Shortness of Breath, # 18 Gm, 0 Refills,Maintenance, 08/25/22 18:29:00 EDT, Inhaler, [facility] Partial fill upon patient request if the prescription is for a schedule II opi... Start Date: 08/25/22 Status: Ordered Zetia 10 mg oral tablet 1 tablet = 10 mg, By Mouth, Daily, # 30 tablet, 0 Refills, Maintenance, 08/26/22 14:58:00 EDT, Tablet, [facility]., Partial fill upon patient request if the prescription is for a schedule II opioid drug., 176, cm, 08/17/22 14:18:00 EDT,... Start Date: 08/26/22 Stop Date: 09/25/22 Status: Ordered ziprasidone 40 mg oral capsule 1 capsule = 40 mg, By Mouth, Daily in AM, # 90 each, 0 Refills, Maintenance, 08/09/22 13:01:00 EDT,Capsule, [facility] Partial fill upon patient request if the prescription is for aschedule II opioid drug., 176, cm, 08/04/22 16:02:0... Start Date: 08/09/22 Status: Ordered ziprasidone 80 mg oral capsule 1 capsule = 80 mg, By Mouth, Daily at supper, # 90 each, 0 Refills, Maintenance, 08/09/22 13:01:00 EDT, [facility]., Partial fill upon patient request if [...] Active 1CVA 2016 2information and pathology of 4-2021 colonospcy in [facility] 09-09-2020 note 3per note - CT at outside location 4Completed a colonoscopy 2020 and had a cecum polyp. Biopsy tubular adenoma. repeat colonoscopy 7 years Social History Social History Type Response Smoking Status Never smoker entered on: 03/12/18 Sex Patient Care team information Care Team Personnel Name: Julianna GROSS, Rosa Andres Position: S Primary Care Physician Member Role: PCP Address: Address: [address] [place] [address] Care Team Related Persons Name: MARILU BOYD
[2023-01-13 14:44] LABS: Basophils Absolute Auto 0.1 X10*3/uL (0.0-0.2); Basophils Percent Auto 0.5 % (0-2); Eosinophils Absolute Auto 0.4 X10*3/uL (0.0-0.4); Hematocrit 43.4 % (42.0-52.0); Hemoglobin 14.2 g/dl (14.0-18.0); Imm Gran Abs Auto 0.06 X10*3/uL (0.00-0.03); Imm Gran Pct Auto 0.4 % (0.0-0.4); Lymphocytes Absolute Auto 2.8 X10*3/uL (1.2-4.9); Lymphocytes Percent Auto 19.2 % (20-40); MANUAL DIFF FLAG SCAN; Mean Corpuscular HGB Conc 32.7 g/dl (31.0-36.0); Mean Corpuscular Hemoglobin 27.5 pg (27.0-33.0); Mean Corpuscular Volume 84.1 fL (80.0-98.0); Mean Platelet Volume 12.7 fL (9.4-12.4); Monocytes Absolute Auto 1.6 X10*3/uL (0.1-1.2); Monocytes Percent Auto 11.1 % (2-11); Neutrophils Absolute Auto 9.7 x10*3/uL (2.0-8.3); Neutrophils Percent Auto 65.8 % (45-73); Platelet Count 290 X10*3/uL (160-400); Red Blood Count 5.16 X10*6/uL (4.60-5.80); Red Cell Distribution Width 13.9 % (11.0-16.0); SCAN SMEAR FLAG 1; White Blood Count 14.7 X10*3/uL (4.8-10.8)
[2023-01-13 14:54] LABS: Beta-Hydroxybutyrate 0.12 mmol/L (0.02-0.27)
[2023-01-13 14:57] LABS: Alanine Aminotransferase 19 U/L (0-40); Albumin Level 3.4 g/dL (3.5-5.0); Alkaline Phosphatase 134 U/L (39-117); Anion Gap 13 (12-20); Aspartate Amino Transferase 15 U/L (5-37); Bilirubin Total 0.4 mg/dL (0.0-1.0); Blood Urea Nitrogen 43 mg/dL (9-16); Calcium 9.9 mg/dL (8.4-10.2); Carbon Dioxide 24 mmol/L (22-29); Chloride 101 mmol/L (96-108); Creatinine Clr Calc Pharmacy 40.5; Estimated Glomerular Filt Rate 26; Glucose Random 378 mg/dL (60-115); Lipase 105 U/L (8-78); Potassium 4.1 mmol/L (3.3-5.1); Sodium 134 mmol/L (135-145); Total Protein 6.8 g/dL (6.5-8.0)
[2023-01-13 15:05] LABS: Appearance Urine Clear; Color Urine Yellow; Glucose Urine UA >=1000 mg/dL (Negative); Leukocyte Esterase Urine Negative (Negative); Nitrite Urine Negative (Negative); PH 5.5 (5.0-9.0); Specific Gravity - Urine 1.025 (1.005-1.025); UMIC TRIGGER UACC YES; Urine Blood Negative (Negative); Urine Ketones Negative (Negative); Urine Protein 300 (3+) mg/dL (Neg-Trace)
[2023-01-13 15:08] LABS: SLIDE REVIEW VERIFIED
[2023-01-13 15:11] LABS: Bacteria Urine Trace (None Seen); Hyaline Casts Urine 0-2 /LPF (0-2); Squamous Epithelial Cell Urine 0-2 /HPF (0-2); WBC Urine 0-5 /HPF (0-5)
--- NOTE | 2023-01-13 15:48 | ECG_ITS ---
Test Reason : DIZZINESS Blood Pressure : / mmHG Vent. Rate : 090 BPM Atrial Rate : 090 BPM P-R Int : 130 ms QRS Dur : 074 ms QT Int : 358 ms P-R-T Axes : 055 -21 030 degrees QTc Int : 437 ms Normal sinus rhythm Normal ECG When compared with ECG of 19-JAN-2018 11:25, No significant change was found Referred By: Michael Shay Electronically Signed By:TYSON DAY
[2023-01-13 16:35] LABS: Troponin-I High Sensitivity 17.9 ng/L (<3.5-35.0)
[2023-01-13] MEDS: 0.9 % Sodium Chloride 2,000 ML 999 ML IVCONT (16:40)
--- NOTE | 2023-01-13 16:56 | PC.NURSE ---
came in from waiting room for dizziness, hypotension, and diaphoretic. ekg obtained, iv established labs drawn and sent. NSR on monitor. fluids infusing, ultrasound at bedside.
[2023-01-13] MEDS: Meclizine HCl 25 MG TABLET 50 MG PO (17:06)
[2023-01-13 17:10] LABS: B Type Natriuretic Peptide 10 pg/mL (<100)
[2023-01-13] MEDS: Insulin Regular, Human 100 UNIT/ML 3 ML VIAL 10 UNIT IVPUSH (17:10)
[2023-01-13 19:29] LABS: Glucose, Whole Blood 100 mg/dL (60-115)
[2023-01-13 19:56] LABS: Anion Gap 12 (12-20); Blood Urea Nitrogen 42 mg/dL (9-16); Calcium 9.5 mg/dL (8.4-10.2); Carbon Dioxide 25 mmol/L (22-29); Chloride 108 mmol/L (96-108); Creatinine Clr Calc Pharmacy 48.8; Estimated Glomerular Filt Rate 32; Glucose Random 112 mg/dL (60-115); Potassium 3.7 mmol/L (3.3-5.1); Sodium 141 mmol/L (135-145)
[2023-01-13] MEDS: 0.9 % Sodium Chloride 1,000 ML 999 ML IVCONT (21:33)
--- NOTE | 2023-01-14 00:09 | PC.NURSE ---
Pt alert and oriented. and children at bedside. PT eat fired chicken and haitian fries. Medications adminsitered as per JUL. Repeat labs redrawn by crime scene technician. Plan of care ongoing.
[2023-01-14 00:17] VITALS: BP 127/71; PULSE 97; RESP 13; TEMP 36.8; O2SAT 97
--- NOTE | 2023-01-14 00:27 | PC.NURSE ---
Straight cath ordered in error. confirmed with provider it was not needed.
== END 2023-01-14 02:58 | disposition home or self-care (01) ==
PROVIDERS: Physician Assistant; Emergency Provider Emergency Medicine; PCP Internal Medicine
DX: N17.9 Acute kidney failure, unspecified (principal); E11.65 Type 2 diabetes mellitus with hyperglycemia; E11.22 Type 2 diabetes mellitus with diabetic chronic kidney disease; N18.9 Chronic kidney disease, unspecified; R60.0 Localized edema; M79.662 Pain in left lower leg; G89.4 Chronic pain syndrome; F25.9 Schizoaffective disorder, unspecified; E66.9 Obesity, unspecified; Z68.38 Body mass index [BMI] 38.0-38.9, adult; Z79.82 Long term (current) use of aspirin; Z79.899 Other long term (current) drug therapy; Z79.4 Long term (current) use of insulin
CPT/HCPCS: 36415; 51701; 80048; 80053; 81001; 82010; 82947; 83690; 83880; 84484; 85025; 93005; 93971; 96374; 99285

== ENCOUNTER 2023-01-19 15:20 | Outpatient (REF) | payer MEDICAID, SELFPAY ==
--- NOTE | ~2023-01-19 | XR_ITS ---
EXAMINATION: XR FOOT, LEFT CLINICAL INFORMATION: Foot pain COMPARISON: None available. TECHNIQUE: AP, lateral, and oblique views of the left foot. FINDINGS: The bones and soft tissues are normal. No fracture. Alignment is anatomic. Joint spaces are maintained. XR/XR foot LT min 3V IMPRESSION: Unremarkable plain radiographs of the left foot.
== END 2023-01-19 15:21 | disposition home or self-care (01) ==
LOC: HO.HHCX 15:20
PROVIDERS: Visit Provider Emergency Medicine
DX: M79.672 Pain in left foot (principal)
CPT/HCPCS: 73630

== ENCOUNTER 2023-01-23 11:14 | Outpatient (REF) | payer MEDICAID, SELFPAY ==
--- NOTE | ~2023-01-23 | XR_ITS ---
EXAMINATION: XR LUMBOSACRAL SPINE CLINICAL INFORMATION: Chronic low back pain for 6 months. COMPARISON: 12/29/2017 TECHNIQUE: Three views of the lumbosacral spine. FINDINGS: Redemonstration of 1 cm sclerotic focus overlying the left iliac bone, possibly representing a bony lesion such as a bone island versus soft tissue calcification. Mild degenerative changes in the imaged lower thoracic spine. Facet arthritis in the lower lumbar spine. Mild atherosclerotic aortoiliac calcifications. Mild multilevel lumbar spondylosis with mild loss of disc space height at L5-S1 as previously noted. XR/XR lumbar spine 2-3V IMPRESSION: Mild multilevel lumbar spondylosis remains most notable at L5-S1.
[2023-01-23 13:41] LABS: MANUAL DIFF FLAG NO
[2023-01-23 13:56] LABS: Basophils Absolute Auto 0.1 X10*3/uL (0.0-0.2); Basophils Percent Auto 0.5 % (0-2); Eosinophils Absolute Auto 0.5 X10*3/uL (0.0-0.4); Eosinophils Percent Auto 3.3 % (0-4); Hemoglobin 14.3 g/dl (14.0-18.0); Imm Gran Abs Auto 0.07 X10*3/uL (0.00-0.03); Imm Gran Pct Auto 0.5 % (0.0-0.4); Lymphocytes Absolute Auto 3.5 X10*3/uL (1.2-4.9); Lymphocytes Percent Auto 24.5 % (20-40); Mean Corpuscular HGB Conc 31.1 g/dl (31.0-36.0); Mean Corpuscular Hemoglobin 27.3 pg (27.0-33.0); Mean Platelet Volume 12.8 fL (9.4-12.4); Monocytes Absolute Auto 1.3 X10*3/uL (0.1-1.2); Neutrophils Absolute Auto 8.8 x10*3/uL (2.0-8.3); Neutrophils Percent Auto 62.2 % (45-73); Platelet Count 319 X10*3/uL (160-400); Red Blood Count 5.23 X10*6/uL (4.60-5.80); Red Cell Distribution Width 14.8 % (11.0-16.0); White Blood Count 14.2 X10*3/uL (4.8-10.8)
[2023-01-23 14:28] LABS: Uric Acid 7.1 mg/dL (3.4-7.0)
[2023-01-23 15:00] LABS: Folate 9.8 ng/mL (> or = 4.0); Vitamin B12 450 pg/mL (200-900)
[2023-01-23 15:18] LABS: CT PCR NOT DETECTED (Not Detect.); NG PCR NOT DETECTED (Not Detect.)
== END 2023-01-23 11:15 | disposition home or self-care (01) ==
LOC: HO.HHCL 11:14
PROVIDERS: Visit Provider Student in an Organized Health Care Education/Training Program
DX: E11.21 Type 2 diabetes mellitus with diabetic nephropathy (principal); Z79.4 Long term (current) use of insulin
CPT/HCPCS: 0353U; 72100; 82607; 82746; 84550; 85025

== ENCOUNTER 2023-03-29 10:06 | Outpatient (AMB) | payer MEDICAID, SELFPAY ==
--- NOTE | 2023-03-29 10:14 | A.OFFVIS_ITS ---
Intake Vital Signs 03/29/23 10:23 Height 5 ft 8 in Weight 251 lb 8 oz BMI 38.2 BP 120/72 Blood Pressure Location Rt brachial Position Sitting Pulse 99 Pulse Source Pulse Oximeter Pulse Oximetry (%) 96 Oxygen Delivery Method Room Air Intake Visit Reasons: VDI-NVD-Qvzcoe to lvm Intake Note: NPV for sleep issues, states had cpap, [place] Jewelry Appraiser Required: Yes Jewelry Appraiser Name: [id number] Allergies penicillin V Allergy (Mild, Verified 03/29/23 10:18) Rash Penicillins [PENICILLINS] Allergy (Unknown, Verified 03/29/23 10:18) RASH, DIFFICULTY BREATHING HPI HPI Comments History of Present Illness Details 52 y/o male patient with HTN, and T2DM p resents for new in-person visit to manage sleep apnea. coding coordinatorDarrel ID #[id number] utilized. Pt reports that he was diagnosed with severe degree of sleep apnea 2-3 years ago. He has been using CPAP but did not have CPAP supplies for a while. He moved from [place] to [place] and his insurance has changed. Pt states that his CPAP works well, uses it nightly. He has difficulty breathing without CPAP. He is having difficulty breathing and gasping, needs to elevate his head when he sleep. Sleep questionnaire: Have you ever been diagnosed with a sleep disorder? Yes, severe degree of sleep apnea. Have you ever had a sleep study in the past? Yes. Have you ever been treated for a sleep disorder? Yes, with CPAP. Do you take medications for a sleep disorder? trazodone 150 mg. Do you snore? Yes. Do you wake up gasping at night? Yes. Do you have episodes of apneas? Yes. If yes, are they witnessed? Yes. Do you have episodes of nocturnal chest pain or dyspnea? Yes. Do you have difficulty initiating sleep? Yes. Do you have difficulty maintaining sleep? Yes. Do you wake up tired? No. Do you have headaches upon awakening? No. Do you wake up with dry mouth or throat? Yes. Do you have GERD? Yes. Do you have nocturia? Yes. Do you have nocturnal leg cramps? No. Do you have symptoms of restless legs? No. Do you act out your dreams? No. [facility] Medical History (Updated 03/29/23 @ 10:44 by Max Bacon CNP) Leukocytosis Memory loss Obesity Idiopathic gout of multiple sites GERD (gastroesophageal reflux disease) Hypertensive chronic kidney disease Secondary hyperparathyroidism, renal Chronic kidney disease Sleep apnea Type 2 diabetes mellitus Schizoaffective disorder Chronic pain syndrome Diabetic polyneuropathy Gout Family History (Updated 03/29/23 @ 10:23 by Megan Romero [facility]) Father Cancer Diabetes Mother Cancer Diabetes Family/Other Cancer Diabetes (Updated 03/29/23 @ 10:23 by Megan Romero [facility]) Alcohol intake: never Patient Tobacco Use Status: Never used Tobacco Review of Systems Const All systems reviewed & are unremarkable except as noted in HPI and below ENT Reports Normal hearing present Neuro Reports Normal hearing present Physical Exam Vital Signs: Last Vital Signs Pulse 99 03/29/23 10:23 BP 120/72 03/29/23 10:23 Pulse Ox 96 03/29/23 10:23 Oxygen Delivery Method Room Air 03/29/23 10:23 BMI result Body Mass Index 38.2 Const General: cooperative Nutritional Appearance: obese Orientation/consciousness: patient oriented x3 Limitations: language barrier Neck Neck: Yes full ROM and Yes supple Resp Effort & Inspection: normal respiratory effort and able to speak in complete sentences Neuro General: patient oriented x3, gait normal and moves all extremities Cranial nerves: Yes Bilaterally intact EOM present, Yes Midline tongue present, Yes Symmetric palate elevation present, Yes Normal hearing present, Yes Ability to bilaterally rotate head present and Yes Ability to bilaterally elevate shoulders present Cognition (Neuro): normal cognition Gait exam (Neuro): Normal gait present Motor exam (neuro): 5/5 motor strength present throughout, Pronator motor function not present and no tremor noted Psych Appearance: grossly normal Mental Status: mental status grossly normal Speech and movement: Normal speech and movement present Affect: normal affect Attitude: cooperative Assessment & Plan Assessment & Plan (1) REGI on CPAP: Code(s): G47.33 - Obstructive sleep apnea (adult) (pediatric) Plan Pt is advised to undergo home sleep study to assess for sleep apnea. Will f/u with pt after study to discuss results and appropriate treatment options. and will send supply prescription. Pt to call with any worsening concerns or questions. Orders: Orders RT home sleep study Today G47.33 - Obstructive sleep apnea (adult) (pediatric) Coding Level of Care Code New Pt Level 3 (80137) Diagnoses REGI on CPAP G47.33
[2023-03-29 10:23] VITALS: BP 120/72; PULSE 99; O2SAT 96; BMI 38.2
== END 2023-03-29 10:58 | disposition home or self-care (01) ==
PROVIDERS: PCP Internal Medicine; Visit Provider Nurse Practitioner Family
DX: G47.33 Obstructive sleep apnea (adult) (pediatric) (principal)
CPT/HCPCS: 99203

== ENCOUNTER → 2023-03-29 10:06 | Outpatient (BNVA) | payer MEDICAID, SELFPAY | PROVIDERS: PCP Internal Medicine; Visit Provider Nurse Practitioner Family | DX: G47.33 Obstructive sleep apnea (adult) (pediatric) (principal); E66.9 Obesity, unspecified; Z68.38 Body mass index [BMI] 38.0-38.9, adult; Z99.89 Dependence on other enabling machines and devices | CPT/HCPCS: 99212 ==

== ENCOUNTER 2023-04-04 10:47 | Outpatient (REF) | payer MEDICAID, SELFPAY ==
[2023-04-04 13:57] LABS: Alanine Aminotransferase 21 U/L (0-40); Albumin Level 3.3 g/dL (3.5-5.0); Alkaline Phosphatase 139 U/L (39-117); Anion Gap 11 (12-20); Aspartate Amino Transferase 14 U/L (5-37); Bilirubin Total 0.4 mg/dL (0.0-1.0); Blood Urea Nitrogen 26 mg/dL (9-16); Calcium 9.9 mg/dL (8.4-10.2); Carbon Dioxide 27 mmol/L (22-29); Chloride 104 mmol/L (96-108); Estimated Glomerular Filt Rate 40; Glucose Random 203 mg/dL (60-115); Potassium 4.4 mmol/L (3.3-5.1); Sodium 138 mmol/L (135-145)
[2023-04-04 13:58] LABS: Total Protein 7.1 g/dL (6.5-8.0)
[2023-04-04 14:10] LABS: Lipase 425 U/L (8-78); Uric Acid 6.7 mg/dL (3.4-7.0)
== END 2023-04-04 10:48 | disposition home or self-care (01) ==
LOC: HO.HHCL 10:47
PROVIDERS: Visit Provider Student in an Organized Health Care Education/Training Program
DX: M10.9 Gout, unspecified (principal)
CPT/HCPCS: 36415; 80053; 83690; 84550

== ENCOUNTER 2023-04-07 13:52 | Outpatient (REF) | payer MEDICAID, SELFPAY ==
--- NOTE | ~2023-04-07 | CT_ITS ---
EXAMINATION: CT CHEST WITHOUT CONTRAST CLINICAL INFORMATION: Prior abnormal imaging. COMPARISON: None available. TECHNIQUE: Multidetector volumetric CT imaging of the chest was done. Axial MIP volume rendering provided. Sagittal and coronal reformatted images were obtained. This CT examination was performed using dose optimization techniques as appropriate, variously including the following: *Automated exposure control *Adjustment of mA and/or kV according to patient size (this includes techniques or standardized protocols for targeted exams where dose is matched to indication/reason for exam; i.e. extremities or head) *Use of iterative reconstruction technique DLP: 270 mGy-cm FINDINGS: LUNGS: Few scattered calcified pulmonary nodules. No suspicious pulmonary nodules. No focal consolidation. Linear scarring versus atelectasis in the left lower lobe. Central airways are patent. MEDIASTINUM: Superior mediastinal lymph node measures 1.0 x 1.5 cm. Subcarinal lymph node measures 0.8 x 1.3 cm. No bulky axillary or hilar lymphadenopathy. Great vessels are of normal caliber. Heart size is normal. No pericardial effusion. CORONARY ARTERY CALCIFICATION: Scattered. PLEURA: There is no pleural effusion. No pleural mass or thickening. UPPER ABDOMEN: Hepatic steatosis. Cholelithiasis. Right adrenal adenoma. OSSEOUS STRUCTURES: No destructive bone lesions. CT/CT chest wo IV con IMPRESSION: No suspicious pulmonary nodules. Hepatic steatosis. Cholelithiasis. Right adrenal adenoma.
== END 2023-04-07 13:53 | disposition home or self-care (01) ==
LOC: HO.CT 13:52
PROVIDERS: PCP Student in an Organized Health Care Education/Training Program; Visit Provider Student in an Organized Health Care Education/Training Program
DX: R93.89 Abnormal findings on diagnostic imaging of other specified body structures (principal)
CPT/HCPCS: 71250

== ENCOUNTER → 2023-04-14 15:40 | Outpatient (BNV) | payer MEDICAID, SELFPAY | PROVIDERS: PCP Student in an Organized Health Care Education/Training Program; Visit Provider Internal Medicine | DX: D72.829 Elevated white blood cell count, unspecified (principal) | CPT/HCPCS: 99203 ==

== ENCOUNTER 2023-04-20 13:15 | Outpatient (AMB) | payer MEDICAID, SELFPAY ==
--- NOTE | 2023-04-20 13:29 | MHC.OFFVIS ---
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 he states he is having pain in swelling in both legs for about 6 months now.He states that he is diabetic and has high blood pressure Dry Charge Process Attendant Required: Yes Dry Charge Process Attendant Name: sandoval mireles Information Interpreted: non-clinical & clinical Accompanied by: Spouse Allergies penicillin V Allergy (Mild, Verified 04/20/23 13:32) Rash Penicillins [PENICILLINS] Allergy (Unknown, Verified 04/20/23 13:32) RASH, DIFFICULTY BREATHING HPI 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 Complaints include pain over varicosities, swelling of lower extremities, cramping, fatigue, and heaviness of the lower extremities. 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 It is noted more so in left leg. Of note he has been sent to Pain Management for workup of left lower extremity pretibial pain Patient denies any previous venous surgery or injections. Patient denies any history of DVT/ PE. Patient denies any history of phlebitis. Trial of compression includes - [id number] They now present for vascular evaluation regarding their varicose veins. [facility] Medical History Leukocytosis Memory loss Obesity Idiopathic gout of multiple sites GERD (gastroesophageal reflux disease) Hypertensive chronic kidney disease Secondary hyperparathyroidism, renal Chronic kidney disease Sleep apnea Type 2 diabetes mellitus Schizoaffective disorder Chronic pain syndrome Diabetic polyneuropathy Gout Family History Father Cancer Diabetes Mother Cancer Diabetes Family/Other Cancer Diabetes Social History Alcohol intake: never Patient Tobacco Use Status: Never used Tobacco Review of Systems Const Reports as per HPI ENT Reports no additional complaints Card Denies chest pain, Denies chest pain at rest and Denies chest pain with activity Resp Denies chest congestion and Denies cough GI Reports no additional complaints Musc Details: pain over varicosities, aching of lower extremities, swelling, cramping, heaviness and tiredness, itching Denies abnormal gait Skin/Breast Reports pruritus and Denies wounds Neuro Reports no additional complaints and Denies abnormal gait Psych Denies no additional complaints Physical Exam Vital Signs: BMI result Body Mass Index 39.2 Const General: cooperative, healthy appearing and comfortable Orientation/consciousness: oriented to person, oriented to place and oriented to time Neck Carotids: no bruits Chest Chest palpation & inspection: normal inspection of the chest and normal palpation of entire chest wall Resp Effort & Inspection: normal respiratory effort and able to speak in complete sentences Cardio Rate: regular rate Heart sounds: S1 normal heart sound present and S2 normal heart sound present Peripheral pulses: Peripheral pulses 2+ throughout GI Inspection: Yes normal to inspection Skin Other: +2 edema, CEAP Classification C4 - skin color changes Ep - Etiology Primary As - superficial veins P - reflux General skin exam: dry skin Neuro General: oriented to person, oriented to place and oriented to time Extrem Right lower extremity: full ROM, normal capillary refill and edema Left lower extremity: full ROM, normal capillary refill and edema Psych Mental Status: mental status grossly normal Assessment & Plan Assessment & Plan (1) Varicose veins of left lower extremity with inflammation: Code(s): I83.12 - Varicose veins of left lower extremity with inflammation Plan: In short, the patient has evidence of venous insufficiency. I have discussed the pathophysiology with the patient. In addition I have provided informational material regarding venous disease to the patient. We have discussed conservative measures including compression, elevation, and exercise. I have also provided a handout regarding appropriate use of compression stockings and where to purchase good compression stockings as well. I have taken the liberty of ordering venous insufficiency testing with the patient. They will follow up with me after testing. The patient had an opportunity to ask questions regarding the treatment plan. All questions were answered. Imaging studies, laboratory studies and physical exam results were discussed and reviewed in detail. No major barriers to understanding were identified. The patient expressed understanding and agreement with the above treatment plan. The patient is aware they should contact our office by phone for worsening of the current condition or the appearance of new symptoms. Thank you for allowing me to participate in the vascular care of this patient. If you have any questions or concerns regarding the treatment for the above condition please do not hesitate to contact me. The office telephone contact is [phone]. This note is constructed using voice recognition software. While every effort has been made to ensure accuracy, garde manger errors may have been included. Thank you for allowing me to participate in the care of your patient. Yours sincerely, Dano Rowland MD, FACS, R.P.V.I. Orders: Orders US venous duplex LE BI 1 Week I83.12 - Varicose veins of left lower extremity with inflammation Coding Level of Care Code New Pt Level 4 (35432) Diagnoses Varicose veins of left lower extremity with inflammation I83.12
[2023-04-20 13:31] VITALS: BMI 39.2
== END 2023-04-20 14:09 | disposition home or self-care (01) ==
PROVIDERS: PCP Internal Medicine; Visit Provider Surgery Vascular Surgery
DX: I83.12 Varicose veins of left lower extremity with inflammation (principal)
CPT/HCPCS: 99203

== ENCOUNTER → 2023-04-20 13:15 | Outpatient (BNVA) | payer MEDICAID, SELFPAY | PROVIDERS: PCP Internal Medicine; Visit Provider Surgery Vascular Surgery | DX: I83.12 Varicose veins of left lower extremity with inflammation (principal) | CPT/HCPCS: 99202 ==

== ENCOUNTER → 2023-04-24 10:53 | Outpatient (REF) | payer MEDICAID, SELFPAY ==
--- NOTE | 2023-04-24 10:56 | CA_ITS ---
Transthoracic Echocardiogram Patient (Last, First, Middle): Darrel Hagan, Gender: Male Date of : 1970 Age: 52 Procedure Date: 04/24/2023 Procedure Type: Transthoracic Echocardiogram Location: OP Height: 172.72 cm Weight: 117.03 kg BSA: 2.28 m2 Heart Rate: bpm BP: 128 / 84 mmHg Maintenance Service Dispatcher: MACRINA Referring MD: Katrin López MD Medicare Specialist: Norris Denton MD Symptoms: R60.0 LOWER EXT EDEMA Study Quality: Technically Difficult ECG Rhythm: Sinus Conclusions: - 1. Normal LV ejection fraction 55-60% with mild LVH with impaired relaxation filling pattern 2. Normal cardiac valvular Doppler 3. No gross pericardial effusion Findings Left Ventricle Normal left ventricular size and systolic function. There is mildly increased left ventricular wall thickness. The visually estimated ejection fraction is between 55-60%. Spectral Doppler is indicative of an impaired relaxation filling pattern. E/E prime ratio is between 8 and 15 consistent with indeterminate filling pressures. Possible basal inferior wall motion abnormality. Peak GLS is -13.0%, which is moderately reduced. Right Ventricle Normal right ventricular cavity size and systolic function. Atria The left atrium is normal in size. Interatrial shunt cannot be excluded. The right atrium was not well visualized. Aortic Valve The aortic valve structure and function is likely normal. There is no aortic valve stenosis. There is no aortic valve regurgitation. Mitral Valve There is mild posterior mitral leaflet thickening. There is mild mitral annular calcification. There is trace mitral valve regurgitation. There is no mitral valve stenosis. Pulmonic Valve The pulmonic valve was not well visualized. Tricuspid Valve The tricuspid valve was not well visualized. Tricuspid regurgitation envelope is inadequate for calculation of right ventricular systolic pressure. Normal right atrial pressure. Great Vessels The aorta was not well visualized. The pulmonary artery was not well visualized. Venous The inferior vena cava is normal in size and collapses greater than 50% with inspiration. Pericardium/Pleural The pericardium was not well visualized. Measurements 2D Linear Measurements IVSd: 1.44 0.6-0.9/0.6-1.0 cm LVIDd: 3.69 3.9-5.3/4.2-5.9 cm LVIDd Index: 1.62 2.4-3.2/2.2-3.1 cm/m2 LVIDs: 2.08 2.0-3.6 cm LVPWd: 1.29 0.7-1.1 cm LA Diam: 3.60 2.7-3.8/3.0-4.0 cm LAIDs Index: 1.58 1.5-2.3 cm/m2 LV Mass: 222.94 67-162/88-224 g LV Mass Index: 97.78 43-95/49-115 g/m2 LVOT Diam: 2.10 3.0+(-)1.3 cm 2D Systolic Function EF 4C: 53.20 >55% EF 2C: 67.10 >55% EF BiP: 58.80 >55% Mitral Valve MV Pk E: 0.78 MV PK A: 0.97 MV Decel Time: 184.00 E/A: 0.80 E'Lateral: 6.64 E'Medial: 4.57 E/E' Med: 17.10 E/E' Lat: 11.70 PHT: 54.00 MVA PHT: 4.07 Decel Mcpherson: 4.24 Aortic Valve AoV Pk Rock: 1.26 AoV Mn Rock: 0.76 AoV VTI: 0.22 AoV Pk Grad: 6.00 Aov Mn Grad: 3.00 PRINCE Cont.VTI: 3.12 LVOT LVOT Pk Rock: 1.08 LVOT Mn Rock: 0.67 LVOT VTI: 0.20 LVOT Pk Grad: 5.00 LVOT Mn Grad: 2.00 LVOT Diam: 2.10 LVOT Area: 3.46 Diastolic Function MV Pk E: 0.78 MV Pk A: 0.97 E/A: 0.80 E'Medial: 4.57 E/E' Med: 17.10 E' Laterial: 6.64 E/E' Lat: 11.70 Right Ventricle TAPSE (mm): 22.40 TVS' Rock: 14.40 Tricuspid Valve RA Press: 3.00 Great Vessels Aorta Sinus of Valsalva: 3.54 2.0-3.[address] [place]: 2.61 1.7-3.4 cm Ao Asc: 3.30 2.1-3.4 cm Updated in Other Vendor System with Status of Final Norris Denton MD electronically signed on 04/25/2023 3:08:12 PM with status of Final
== END ==
LOC: HO.CARD 10:53
PROVIDERS: PCP Student in an Organized Health Care Education/Training Program; Visit Provider Student in an Organized Health Care Education/Training Program
DX: R60.0 Localized edema (principal)
CPT/HCPCS: 93306; 93356

== ENCOUNTER → 2023-04-24 10:56 | Outpatient (BNV) | payer MEDICAID, SELFPAY | PROVIDERS: PCP Student in an Organized Health Care Education/Training Program; Visit Provider Internal Medicine Cardiovascular Disease | DX: I34.81 Nonrheumatic mitral (valve) annulus calcification (principal) | CPT/HCPCS: 93306 ==

== ENCOUNTER 2023-05-04 09:45 | Outpatient (REF) | payer MEDICAID, SELFPAY ==
--- NOTE | ~2023-05-04 | US_ITS ---
EXAMINATION: US ABDOMEN COMPLETE CLINICAL INFORMATION: Cholelithiasis without obstruction. COMPARISON: Ultrasound abdomen complete 10/11/2018 and 03/27/2018. CT abdomen and pelvis 11/08/2015. TECHNIQUE: Real-time imaging of the abdominal viscera. Technically limited study secondary to body habitus. FINDINGS: PANCREAS: Largely obscured by overlapping bowel gas. ABDOMINAL AORTA: The proximal segment is normal in caliber. The mid and distal segments are largely obscured by overlapping bowel gas. INFERIOR VENA CAVA: Visualized portions are normal. LIVER: The liver is normal in size. The liver contour is normal. There is diffuse increased liver parenchymal echogenicity. No focal hepatic lesion. There is no intrahepatic biliary duct dilatation seen. GALLBLADDER: There is cholelithiasis. The gallbladder is physiologically distended. No evidence of gallbladder wall thickening or pericholecystic fluid. COMMON BILE DUCT: Normal in caliber measuring 1.0 cm in diameter. RIGHT KIDNEY: Normal. No hydronephrosis. No renal calculi or focal parenchymal lesions. The kidney measures 13.2 cm in maximum dimension. LEFT KIDNEY: Normal. No hydronephrosis. No renal calculi or focal parenchymal lesions. The kidney measures 14.0 cm in maximum dimension. SPLEEN: Normal. The spleen measures 9.7 cm in maximum dimension. FREE FLUID: None. US/US abdomen complete IMPRESSION: 1. There is generalized increase in hepatic echotexture, consistent with fatty infiltration or hepatocellular disease. Please correlate clinically. No focal hepatic mass or intrahepatic biliary dilatation is seen. 2. There is cholelithiasis. 3. Technically limited ultrasound examination of the pancreas and abdominal great vessels.
== END 2023-05-04 09:46 | disposition home or self-care (01) ==
LOC: HO.US 09:45
PROVIDERS: PCP Student in an Organized Health Care Education/Training Program; Visit Provider Student in an Organized Health Care Education/Training Program
DX: K80.80 Other cholelithiasis without obstruction (principal)
CPT/HCPCS: 76700

== ENCOUNTER 2023-05-17 12:39 | Outpatient (REF) | payer MEDICAID, SELFPAY ==
[2023-05-17 13:48] LABS: Estimated Average Glucose 306 mg/dL; Hemoglobin A1c % 12.3 % (<6.0)
[2023-05-17 14:14] LABS: Alanine Aminotransferase 24 U/L (0-40); Albumin Level 3.5 g/dL (3.5-5.0); Alkaline Phosphatase 131 U/L (39-117); Anion Gap 14 (12-20); Aspartate Amino Transferase 12 U/L (5-37); Bilirubin Total 0.4 mg/dL (0.0-1.0); Blood Urea Nitrogen 42 mg/dL (9-16); Calcium 9.8 mg/dL (8.4-10.2); Carbon Dioxide 25 mmol/L (22-29); Chloride 106 mmol/L (96-108); Cholesterol 252 mg/dL (<200); Estimated Glomerular Filt Rate 31; Glucose Random 111 mg/dL (60-115); HDL Cholesterol 43 mg/dL (>40); Sodium 141 mmol/L (135-145); Total Protein 7.2 g/dL (6.5-8.0); Triglycerides 494 mg/dL (<150)
[2023-05-17 15:58] LABS: Folate 12.4 ng/mL (> or = 4.0); Vitamin B12 786 pg/mL (200-900)
[2023-05-17 17:10] LABS: Creatinine Urine 88.82 mg/dL
[2023-05-17 17:27] LABS: Microalbum/Creatinine Ratio Ur 2251.7 ug/mg cr (<30); Microalbumin Urine > 2000.0 mg/L
[2023-05-24 17:24] LABS: Aldosterone/Renin Ratio 0.3 Ratio (0.9-28.9); Plasma Renin Activity 20.91 ng/mL/h (0.25-5.82)
[2023-05-29 05:58] LABS: Creatinine Random Urine 93 mg/dL (20-320); Metanephrine, Free Rand Ur 92 mcg/g cr (21-153); Normetanephrine, Free Rand Ur 226 mcg/g cr (108-524); Total Metanephrine, Free RU 318 mcg/g cr (149-603)
== END 2023-05-17 12:40 | disposition home or self-care (01) ==
LOC: HO.HHCL 12:39
PROVIDERS: Visit Provider Student in an Organized Health Care Education/Training Program
DX: E11.21 Type 2 diabetes mellitus with diabetic nephropathy (principal); D35.01 Benign neoplasm of right adrenal gland; Z79.4 Long term (current) use of insulin
CPT/HCPCS: 36415; 80053; 80061; 82043; 82088; 82570; 82607; 82746; 83036; 83835

== ENCOUNTER 2023-05-19 09:09 | Outpatient (REF) | payer MEDICAID, SELFPAY ==
--- NOTE | ~2023-05-19 | US_ITS ---
EXAMINATION: US VENOUS ULTRASOUND WITH DOPPLER LOWER EXTREMITY, BILATERAL CLINICAL INFORMATION: Leg pain and swelling. Evaluate for deep vein thrombosis. COMPARISON: 01/13/2023 TECHNIQUE: Ultrasound of the deep veins is performed from the hip to the calf with compression sonography and color and pulse Doppler assessment. Spectral analysis with color-flow imaging is performed. FINDINGS: The common femoral vein is compressible and exhibits a normal phasic waveform, bilaterally; this suggests that the iliac veins are widely patent above. Within each proximal thigh, the visualized profunda femoris vein is patent. The visualized greater saphenous veins and saphenofemoral junctions are normal. Superficial femoral vein is patent in the proximal, mid and distal aspect of each thigh. Popliteal veins are normal to the level of the trifurcation, bilaterally, and the visualized posterior tibial and peroneal veins are patent. No evidence of Conway's cyst. US/US venous duplex LE BI IMPRESSION: No evidence of deep vein thrombosis in either lower extremity.
[2023-05-19 11:08] LABS: Cortisol Random 9.7 ug/dL
[2023-05-19 11:26] LABS: Creatinine Urine 32.27 mg/dL
[2023-05-19 11:38] LABS: Microalbumin Urine > 2000.0 mg/L
[2023-05-24 15:13] LABS: Creatinine Random Urine 36 mg/dL (20-320); Metanephrine, Free Rand Ur 77 mcg/g cr (21-153); Normetanephrine, Free Rand Ur 174 mcg/g cr (108-524); Total Metanephrine, Free RU 251 mcg/g cr (149-603)
[2023-05-25 17:48] LABS: Metanephrine, Free 45 pg/mL (<=57); Normetanephrines, Free 77 pg/mL (<=148); Total Metanephrine, Free 122 pg/mL (<=205)
[2023-05-29 13:37] LABS: Aldosterone/Renin Ratio 0.3 Ratio (0.9-28.9); Plasma Renin Activity 9.32 ng/mL/h (0.25-5.82)
== END 2023-05-19 09:10 | disposition home or self-care (01) ==
LOC: HO.US 09:09
PROVIDERS: PCP Student in an Organized Health Care Education/Training Program; Visit Provider Student in an Organized Health Care Education/Training Program
DX: E11.21 Type 2 diabetes mellitus with diabetic nephropathy (principal); D35.01 Benign neoplasm of right adrenal gland; M79.604 Pain in right leg; M79.605 Pain in left leg; Z79.4 Long term (current) use of insulin
CPT/HCPCS: 36415; 82043; 82088; 82533; 82570; 83835; 93970

== ENCOUNTER 2023-06-01 10:09 | Outpatient (AMB) | payer MEDICAID, SELFPAY ==
--- NOTE | 2023-06-01 10:11 | A.OFFVIS_ITS ---
Intake Vital Signs 06/01/23 10:19 Height 5 ft 8 in Weight 244 lb BMI 37.1 BP 121/67 Blood Pressure Location Lt brachial Position Sitting Pulse 101 H Intake Visit Reasons: Cholelithiasis Intake Note: Patient is seen in office for evaluation and treatment of cholelithiasis. Pt c/o: onset for years, pain in the abdomen, pain radiates to the back, denies nausea, vomit, diarrhea, admits to constipation taking stool softener with relief, no prior surgeries in the abdomen u/s: 05/04/23 Allergies penicillin V Allergy (Mild, Verified 06/01/23 10:19) Rash Penicillins [PENICILLINS] Allergy (Unknown, Verified 06/01/23 10:19) RASH, DIFFICULTY BREATHING Medication List - Last Reconciled 06/01/23 by Blake Gentile MD allopurinol 100 mg PO DAILY aspirin 81 mg PO DAILY blood-glucose meter,continuous (Dexcom G7 [employer]) As directed carvedilol 25 mg PO BID dulaglutide (Trulicity) 4.5 mg subcut QWEEK empagliflozin 25 mg PO DAILY furosemide 80 mg PO BID gabapentin 800 mg PO DAILY insulin aspart U-100 (Novolog FlexPen U-100 Insulin aspart) 20 units subcut TID insulin regular hum U-500 conc (Humulin R U-500 (Concentrated) Insulin) 200 units subcut QAM losartan 50 mg PO DAILY pantoprazole 40 mg PO DAILY trazodone 150 mg PO BEDTIME PRN ziprasidone HCl 40 mg PO BID HPI HPI Comments History of Present Illness Details 52-year-old male patient with multiple m edical problems including obesity, diabetes mellitus type 2, hyperlipidemia, previous CVA with right hemiparesis, COPD, REGI on CPAP, chronic kidney disease stage 3 with secondary hyperparathyroidism, GERD presenting with complaints of abdominal pain in the left upper quadrant to a lesser degree left lower quadrant and right upper quadrant. The pain is intermittent but seems to be increasing in severity. He denies nausea, vomiting, fever or chills. He does report constipation but denies diarrhea or bloody stool. Does have a previous history of colon polyps that was being followed by GI but has not undergone colonoscopy recently. An ultrasound of the abdomen revealed gallstones within the gallbladder but no secondary evidence of cholecystitis. Of note, previous ultrasound of the abdomen revealed a common bile duct of 0.5 cm but the most recent scan notes increase in the size to 1.0 cm. No apparent obstruction is identified and the pancreas is not well visualized. [facility] Medical History Leukocytosis Memory loss Obesity Idiopathic gout of multiple sites GERD (gastroesophageal reflux disease) Hypertensive chronic kidney disease Secondary hyperparathyroidism, renal Chronic kidney disease Sleep apnea Type 2 diabetes mellitus Schizoaffective disorder Chronic pain syndrome Diabetic polyneuropathy Gout Family History Father Cancer Diabetes Mother Cancer Diabetes Family/Other Cancer Diabetes Social History Alcohol intake: never Patient Tobacco Use Status: Never used Tobacco Review of Systems Const All systems reviewed & are unremarkable except as noted in HPI and below Denies chills, Denies fever(s), Denies headache(s), Denies poor appetite and Reports weakness ENT Denies headache(s) Card Denies chest pain, Denies irregular heart rhythm, Denies palpitations and Denies dyspnea Resp Denies cough, Denies excessive phlegm production and Denies dyspnea GI Reports abdominal pain, Denies bloating, Denies change in bowel habits, Reports constipation, Denies heartburn, Denies diarrhea, Denies nausea and Denies vomiting Denies difficulty urinating and Denies urinary frequency Musc Reports abnormal gait, Denies back pain, Denies muscle weakness and Denies numbness Skin/Breast Denies changing lesions and Denies unusual bruising Neuro Reports abnormal gait, Denies headache(s), Denies numbness, Denies paresthesias and Reports weakness Psych Denies anxiety and Denies depression Endo Denies palpitations Ming/Lymph Denies lymphadenopathy Physical Exam Const General: cooperative and no acute distress Nutritional Appearance: well nourished Orientation/consciousness: patient oriented x3 Limitations: no limitations HEENT Head: Yes normocephalic and Yes atraumatic Ears: hearing grossly normal bilaterally Resp Effort & Inspection: normal respiratory effort, no audible wheezes, no cough and no respiratory distress Cardio Jugular venous distension: no JVD GI Inspection: Yes normal to inspection Palpation (GI): Soft to palpation, Tenderness to palpation present (GI) in the LUQ; Esparza's sign negative and with no rebound tenderness, no guarding and not rigid Percussion: Yes normal to percussion Auscultation: normal bowel sounds Rectal Exam - Male: Yes deferred Skin Other: Warm, dry, no rash, skin changes noted in abdomen secondary to insulin injection. Neuro General: patient oriented x3 Extrem General: Yes no clubbing, cyanosis or edema Assessment & Plan Assessment & Plan (1) Colon polyp: Code(s): K63.5 - Polyp of colon Qualifiers: Colon location: unspecified part of colon Colon polyp type: unspecified Qualified Code(s): K63.5 - Polyp of colon (2) Abdominal pain, left upper quadrant: Code(s): R10.12 - Left upper quadrant pain (3) Cholelithiasis: Code(s): K80.20 - Calculus of gallbladder without cholecystitis without obstruction Qualifiers: Biliary obstruction: without biliary obstruction Cholecystitis presence: without cholecystitis Cholelithiasis location: gallbladder Qualified Code(s): K80.20 - Calculus of gallbladder without cholecystitis without obstruction Plan 52-year-old male patient with multiple medical problems presenting with complaints of left upper quadrant and right upper quadrant abdominal pain of unknown etiology. He does have a known history of gallstones which appeared to be floating by ultrasound. Of note however the common bile duct has increased to 1 cm in diameter compared to 0.5 cm previously. Patient's symptoms are not suggestive of biliary colic. I would recommend further evaluation by Gastroenterology due to his previous history of colon polyps and also suggested a CT abdomen and pelvis to both evaluate the gallbladder, common bile duct and large intestine for possible diverticulitis. He expressed understanding and agrees with the plan. He will return following the studies to review the results. Orders: Orders CT abdomen pelvis wo IV con Today K80.20 - Calculus of gallbladder without cholecystitis without obstruction, R10.12 - Left upper quadrant pain Referrals Gastroenterology Referral K63.5 - Polyp of colon Coding Level of Care Code New Pt Level 4 (44839) Diagnoses Polyp of colon, unspecified part of colon, unspecified type K63.5 Colon location: unspecified part of colon Colon polyp type: unspecified Abdominal pain, left upper quadrant R10.12 Calculus of gallbladder without cholecystitis without obstruction K80.20 Biliary obstruction: without biliary obstruction Cholecystitis presence: without cholecystitis Cholelithiasis location: gallbladder
[2023-06-01 10:19] VITALS: BP 121/67; PULSE 101; BMI 37.1
== END 2023-06-01 10:37 | disposition home or self-care (01) ==
PROVIDERS: PCP Student in an Organized Health Care Education/Training Program; Referring Provider Student in an Organized Health Care Education/Training Program; Visit Provider Surgery
DX: K63.5 Polyp of colon (principal); R10.12 Left upper quadrant pain; K80.20 Calculus of gallbladder without cholecystitis without obstruction
CPT/HCPCS: 99203

== ENCOUNTER → 2023-06-01 10:09 | Outpatient (BNVA) | payer MEDICAID, SELFPAY | PROVIDERS: PCP Student in an Organized Health Care Education/Training Program; Referring Provider Student in an Organized Health Care Education/Training Program; Visit Provider Surgery | DX: K80.20 Calculus of gallbladder without cholecystitis without obstruction (principal); K63.5 Polyp of colon; R10.12 Left upper quadrant pain | CPT/HCPCS: 99202 ==

== ENCOUNTER 2023-06-08 10:42 | Inpatient (IN) | payer MEDICAID, SELFPAY ==
[2023-06-08] VITALS (7 sets, daily range): BP systolic 129–159; BP diastolic 75–97; PULSE 83–107; RESP 16–18; TEMP 36.2–37.3; O2SAT 95–98; BMI 37.7
--- NOTE | ~2023-06-08 | US_ITS ---
EXAMINATION: US ABDOMEN LIMITED CLINICAL INFORMATION: Right upper quadrant pain. Known cholelithiasis.. COMPARISON: None available. TECHNIQUE: Real-time imaging of the right upper quadrant abdominal viscera. FINDINGS: 1. Cholelithiasis with an impacted gallstone in the neck of the gallbladder. There is mild tenderness in right upper quadrant by ultrasound probe. 2. Visualized pancreas, liver, CBD and the liver is unremarkable. US/US abdomen limited IMPRESSION: Cholelithiasis with impacted gallstone in neck of gallbladder with mild tenderness in right upper quadrant. No pericholecystic fluid collection or wall thickening. Findings are suspicious for early cholecystitis.
--- NOTE | ~2023-06-08 | CT_ITS ---
EXAMINATION: CT ABDOMEN AND PELVIS WITHOUT CONTRAST CLINICAL INFORMATION: Upper abdominal pain COMPARISON: Ultrasound abdomen 04/26/2023 TECHNIQUE: Multidetector volumetric imaging was performed from the superior aspect of the liver through the pubic symphysis. Sagittal and coronal reformatted images were obtained on the technologist's workstation. This CT examination was performed using dose optimization techniques as appropriate, variously including the following: *Automated exposure control *Adjustment of mA and/or kV according to patient size (this includes techniques or standardized protocols for targeted exams where dose is matched to indication/reason for exam; i.e. extremities or head) *Use of iterative reconstruction technique DLP: 820 mGy-cm FINDINGS: LUNG BASES: The visualized lung bases are unremarkable. LIVER, GALLBLADDER, AND BILIARY TREE: Liver is prominent. No focal mass or intrahepatic biliary dilatation. Small gallstones are seen within the gallbladder but no surrounding inflammatory change. PANCREAS: Unremarkable. SPLEEN: Unremarkable. ADRENAL GLANDS: Unremarkable. KIDNEYS AND URETERS: The kidneys are normal in size, shape, and attenuation. No hydronephrosis, hydroureter, or calculi seen. No perinephric stranding. BLADDER: Unremarkable. GASTROINTESTINAL TRACT: No bowel obstruction or right or left lower quadrant inflammatory change. The retrocecal appendix appears normal. ABDOMINAL WALL: No significant hernia is appreciated. LYMPH NODES: Normal. VASCULAR: Aorta atherosclerotic but nonaneurysmal. PELVIC VISCERA: Unremarkable. OSSEOUS STRUCTURES: Disc protrusion L5-S1. Lumbar spine intact. No fracture or destructive process. CT/CT abdomen pelvis wo IV con IMPRESSION: No acute abnormalities. No appendicitis. Fleischner guidelines were followed.
[2023-06-08 12:00] LABS: MANUAL DIFF FLAG NO
[2023-06-08 12:01] LABS: Basophils Absolute Auto 0.1 X10*3/uL (0.0-0.2); Basophils Percent Auto 0.4 % (0-2); Eosinophils Absolute Auto 0.3 X10*3/uL (0.0-0.4); Eosinophils Percent Auto 1.6 % (0-4); Hematocrit 43.4 % (42.0-52.0); Hemoglobin 14.6 g/dl (14.0-18.0); Imm Gran Abs Auto 0.08 X10*3/uL (0.00-0.03); Imm Gran Pct Auto 0.5 % (0.0-0.4); Lymphocytes Absolute Auto 2.6 X10*3/uL (1.2-4.9); Lymphocytes Percent Auto 15.9 % (20-40); Mean Corpuscular HGB Conc 33.6 g/dl (31.0-36.0); Mean Corpuscular Hemoglobin 29.4 pg (27.0-33.0); Mean Corpuscular Volume 87.3 fL (80.0-98.0); Mean Platelet Volume 12.6 fL (9.4-12.4); Monocytes Absolute Auto 1.5 X10*3/uL (0.1-1.2); Neutrophils Absolute Auto 11.8 x10*3/uL (2.0-8.3); Neutrophils Percent Auto 72.6 % (45-73); Platelet Count 279 X10*3/uL (160-400); Red Blood Count 4.97 X10*6/uL (4.60-5.80); Red Cell Distribution Width 15.1 % (11.0-16.0); White Blood Count 16.2 X10*3/uL (4.8-10.8)
[2023-06-08 12:15] LABS: Alanine Aminotransferase 22 U/L (0-40); Alkaline Phosphatase 122 U/L (39-117); Anion Gap 13 (12-20); Aspartate Amino Transferase 15 U/L (5-37); Bilirubin Total 0.2 mg/dL (0.0-1.0); Blood Urea Nitrogen 30 mg/dL (9-16); Calcium 8.6 mg/dL (8.4-10.2); Carbon Dioxide 21 mmol/L (22-29); Chloride 107 mmol/L (96-108); Creatinine Clr Calc Pharmacy 50.5; Estimated Glomerular Filt Rate 34; Glucose Random 310 mg/dL (60-115); Lipase 177 U/L (8-78); Potassium 3.9 mmol/L (3.3-5.1); Sodium 137 mmol/L (135-145); Total Protein 6.9 g/dL (6.5-8.0)
--- NOTE | 2023-06-08 14:14 | ED.GENADULT ---
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 But on discussion with him he reports that he is having pain at the right upper quadrant and upper abdominal area in his recently seen a surgeon for possible elective cholecystectomy. Related Data Home Medications Medication Instructions Recorded Confirmed allopurinol 100 mg tablet 100 mg PO DAILY 11/09/22 06/01/23 aspirin 81 mg tablet,delayed 81 mg PO DAILY 11/09/22 06/01/23 release blood-glucose meter,continuous 11/09/22 06/01/23 (Ooshot G7 Cold Type Composing Machine Operator) carvedilol 25 mg tablet 25 mg PO BID 11/09/22 06/01/23 dulaglutide 4.5 mg/0.5 mL 4.5 mg subcut QWEEK 11/09/22 06/01/23 subcutaneous pen injector (Trulicity) empagliflozin 25 mg tablet 25 mg PO DAILY 11/09/22 06/01/23 furosemide 80 mg tablet 80 mg PO BID 11/09/22 06/01/23 gabapentin 800 mg tablet 800 mg PO DAILY 11/09/22 06/01/23 insulin aspart U-100 100 unit/mL 20 unit subcut TID 11/09/22 06/01/23 (3 mL) subcutaneous pen (Novolog FlexPen U-100 Insulin aspart) insulin regular hum U-500 conc 500 200 unit subcut QAM 11/09/22 06/01/23 unit/mL subcutaneous soln (Humulin R U-500 (Concentrated) Insulin) losartan 50 mg tablet 50 mg PO DAILY 11/09/22 06/01/23 pantoprazole 40 mg tablet,delayed 40 mg PO DAILY 11/09/22 06/01/23 release trazodone 150 mg tablet 150 mg PO BEDTIME PRN Sleep 11/09/22 06/01/23 ziprasidone HCl 40 mg capsule 40 mg PO BID 11/09/22 06/01/23 Allergies Allergy/AdvReac Type Severity Reaction Status Date / Time penicillin V Allergy Mild Rash Verified 06/01/23 10:48 Penicillins [PENICILLINS] Allergy Unknown RASH, Verified 06/01/23 10:48 DIFFICULTY BREATHING Review of Systems Review of Systems: Pertinent positives and negatives as stated in [facility] Past Medical History Source: nursing notes reviewed Medical History Leukocytosis Memory loss Obesity Idiopathic gout of multiple sites GERD (gastroesophageal reflux disease) Hypertensive chronic kidney disease Secondary hyperparathyroidism, renal Chronic kidney disease Sleep apnea Type 2 diabetes mellitus Schizoaffective disorder Chronic pain syndrome Diabetic polyneuropathy Gout Surgical History No history of previous surgery Family History Family History Father Cancer Diabetes Mother Cancer Diabetes Family/Other Cancer Diabetes Social History Social History Alcohol intake: never Patient Tobacco Use Status: Never used Tobacco Advance Directives: No Advance Directives Information Provided: No Physical Exam ED Vital Signs: Vital Signs - 24 hr 06/08/23 10:54 06/08/23 14:12 06/08/23 15:40 Temperature 97.5 F 97.1 F 98.2 F Pulse Rate 107 H 100 99 Respiratory Rate 18 18 16 Blood Pressure 129/75 140/91 H 132/90 H Pulse Oximetry 96 95 97 Oxygen Delivery Method Room Air Room Air Room Air 06/08/23 17:17 Temperature 97.9 F Pulse Rate 99 Respiratory Rate 16 Blood Pressure 130/92 H Pulse Oximetry 96 Oxygen Delivery Method Room Air BMI result Body Mass Index 37.7 VITAL SIGNS: Reviewed. GENERAL: Elevated BMI, Well developed, well nourished, in no acute distress. HEAD: Normocephalic/atraumatic EYES: PERRLA, EOMI EARS: Ext canals without abnormality OROPHARYNX: no oral lesions noted, posterior pharynx clear NECK: Supple, no adenopathy LUNGS: Normal breath sounds. No adventitious sounds or accessory muscle use. SpO2<97> CARDIOVASCULAR: Regular rate and rhythm without noted murmurs ABDOMEN: Soft, right upper quadrant/epigastric discomfort, non-distended with bowel sounds. MUSCULOSKELETAL: No tenderness, deformities, or effusions noted on gross inspection. EXTREMITIES: No cyanosis, clubbing or edema. SKIN: Inspection of the skin reveals no rashes NEUROLOGIC: Alert and oriented x 4. Strength and sensation to light touch were grossly intact x 4. Course Course Course Narrative: RME- 52 year old male with history of diabetes, cholelithiasis, pancreatitis presents for evaluation of left upper abdominal pain. He was sent here by his PCP for concerns of abdominal pain with history of cholelithiasis and pancreatitis. Patient's pain is currently a 3/10 in his lipase is elevated to 177. He has mild NICOLAS on top of chronic CKD. Plan for labs, imaging Medical Decision Making Medical Decision Making [facility] Narrative: 52-year-old male with history and clinical presentation, DDX: Possible cholecystitis although without associated symptoms I feel that this is less likely but could be a case of biliary colic and will pursue ultrasound, pancreatitis, viral illness, musculoskeletal. Reviewed all investigations and hematologic indices demonstrate a chronically elevated leukocytosis although today appears to be somewhat increased but otherwise no left shift and no anemia or thrombocytopenia. Chemistry indices demonstrates stable CKD and evidence of hyperglycemia without DKA or HHS. Otherwise electrolytes are without derangements. Alkaline phosphatase and lipase are chronically elevated. CT scan is negative for acute intra-abdominal pathology, but will pursue right upper quadrant ultrasound. Official read of ultrasound demonstrates an impacted stone in the neck of the gallbladder and no pericholecystic fluid or gallbladder wall thickening appreciated at this time. I did discuss the case with the general surgeon who accepts admission. Will draw lactic acid and blood cultures and initiate antibiotics though patient does not present with a SIRS response. Differential Diagnosis Differential Diagnoses: The differential diagnosis associated with the presentation includes Please see the discussion above Admission/Observation Consideration of admission/observation: Escalation of care including admission/observation considered Please see the discussion above Consult Healthcare Provider Management of the patient was discussed with: Dining Room Helper Please see the discussion above Lab Data [facility] Lab Attestation statement: I reviewed the patient's lab results. Please see the discussion above 06/08/23 11:52 06/08/23 11:52 Labs: Lab Results 06/08/23 06/08/23 06/08/23 Range/Units 11:52 17:22 18:33 WBC 16.2 H (4.8-10.8) X10*3/uL RBC 4.97 (4.60-5.80) X10*6/uL Hgb 14.6 (14.0-18.0) g/dl Hct 43.4 (42.0-52.0) % MCV 87.3 (80.0-98.0) fL MCH 29.4 (27.0-33.0) pg MCHC 33.6 (31.0-36.0) g/dl RDW 15.1 (11.0-16.0) % Plt Count 279 (160-400) X10*3/uL MPV 12.6 H (9.4-12.4) fL Immature Gran % (Auto) 0.5 H (0.0-0.4) % Neut % (Auto) 72.6 (45-73) % Lymph % (Auto) 15.9 L (20-40) % [place] % (Auto) 9.0 (2-11) % Eos % (Auto) 1.6 (0-4) % Baso % (Auto) 0.4 (0-2) % Lymph # (Auto) 2.6 (1.2-4.9) X10*3/uL [place] # (Auto) 1.5 H (0.1-1.2) X10*3/uL Eos # (Auto) 0.3 (0.0-0.4) X10*3/uL Baso # (Auto) 0.1 (0.0-0.2) X10*3/uL Abs Immat Gran (auto) 0.08 H (0.00-0.03) X10*3/uL Absolute Neuts (auto) 11.8 H (2.0-8.3) x10*3/uL Absolute Nucleated RBC 0.000 (0.0-0.012) X10*3/uL Nucleated RBC % (auto) 0.0 (0.0-0.2) /100WBC Sodium 137 (135-145) mmol/L Potassium 3.9 (3.3-5.1) mmol/L Chloride 107 (96-108) mmol/L Carbon Dioxide 21 L (22-29) mmol/L Anion Gap 13 (12-20) BUN 30 H (9-16) mg/dL Creatinine 2.08 H (0.5-1.4) mg/dL Estim Creat Clear Calc 50.5 Estimated GFR 34 POC Glucose 67 (60-115) mg/dL Random Glucose 310 H (60-115) mg/dL Calcium 8.6 D (8.4-10.2) mg/dL Total Bilirubin 0.2 (0.0-1.0) mg/dL AST 15 (5-37) U/L ALT 22 (0-40) U/L Alkaline Phosphatase 122 H (39-117) U/L Total Protein 6.9 (6.5-8.0) g/dL Albumin 3.0 L (3.5-5.0) g/dL Lipase 177 H (8-78) U/L Urine Color Yellow Urine Appearance Clear Urine pH 5.5 (5.0-9.0) Ur Specific [place] 1.025 (1.005-1.025) Urine Protein >=1000 (4+) H (Neg-Trace) mg/dL Urine Glucose (UA) >=1000 H (Negative) mg/dL Urine Ketones Negative (Negative) mg/dL Urine Blood Trace H (Negative) Urine Nitrite Negative (Negative) Ur Leukocyte Esterase Negative (Negative) Urine RBC 0-2 (0-2) /HPF Urine WBC 0-5 (0-5) /HPF Ur Squamous Epith Cells 0-2 (0-2) /HPF Urine Bacteria None Seen (None Seen) Hyaline Casts 3-5 (0-2) /LPF Radiology Impression Discussion of test interpretation with radiology: I have reviewed the radiologist's reading. Radiologist Impression: Please see the discussion above External Record Review External record reviewed: Outpatient record, Prior outpatient labs and Prior outpatient radiology Chronic Conditions Patient?s care impacted by: Diabetes and Hypertension CKD Critical Care Time Critical Care Time Critical Care Time: Yes Total Critical Care Time: 60 Attestation: I personally attest to this time spent taking care of the patient. Discharge Plan Discharge Clinical Impression: Cholecystitis Patient Disposition: Admitted As Inpatient Prescriptions: No Action gabapentin 800 mg tablet 800 mg PO DAILY losartan 50 mg tablet 50 mg PO DAILY insulin aspart U-100 [Novolog FlexPen U-100 Insulin] 100 unit/mL (3 mL) insulin pen 20 unit subcut TID Trulicity 4.5 mg/0.5 mL pen injector 4.5 mg subcut QWEEK trazodone 150 mg tablet 150 mg PO BEDTIME PRN (Reason: Sleep) ziprasidone HCl 40 mg capsule 40 mg PO BID Rx Instructions: give with food (meal/snack) Humulin R U-500 (Conc) Insulin 500 unit/mL solution 200 unit subcut QAM pantoprazole 40 mg tablet,delayed release (DR/EC) 40 mg PO DAILY furosemide 80 mg tablet 80 mg PO BID empagliflozin 25 mg tablet 25 mg PO DAILY carvedilol 25 mg tablet 25 mg PO BID Rx Instructions: must administer with a meal/food aspirin 81 mg tablet,delayed release (DR/EC) 81 mg PO DAILY allopurinol 100 mg tablet 100 mg PO DAILY (DME) Dexcom G7 Cold Type Composing Machine Operator Misc See Rx Instructions .Route Rx Instructions: As directed
--- NOTE | 2023-06-08 15:46 | MHC.EDTECH ---
This pct just assumed care of pt ,vitals taken ,blood sugar check ,RN Mahnaz arrington aware of result of 97 .
--- NOTE | 2023-06-08 17:24 | MHC.EDTECH ---
Patient blood sugar recheck ,urine sample collected and sent to lab ,Vitals taken .
[2023-06-08 17:36] LABS: Appearance Urine Clear; Color Urine Yellow; Glucose Urine UA >=1000 mg/dL (Negative); Leukocyte Esterase Urine Negative (Negative); Nitrite Urine Negative (Negative); PH 5.5 (5.0-9.0); Specific Gravity - Urine 1.025 (1.005-1.025); UMIC TRIGGER UACC YES; Urine Blood Trace (Negative); Urine Ketones Negative (Negative); Urine Protein >=1000 (4+) mg/dL (Neg-Trace)
[2023-06-08 17:38] LABS: Bacteria Urine None Seen (None Seen); RBC Urine 0-2 /HPF (0-2); Squamous Epithelial Cell Urine 0-2 /HPF (0-2); WBC Urine 0-5 /HPF (0-5)
--- NOTE | 2023-06-08 18:36 | MHC.EDTECH ---
Provider and RN aware of Pt low blood sugar of 67 ,RN said its joey to give Patient food ,Patient was given 3 cups of orange juice and a ham [place] to eat .
[2023-06-08 18:37] LABS: Glucose, Whole Blood 67 mg/dL (60-115)
[2023-06-08 18:58] LABS: Glucose, Whole Blood 97 mg/dL (60-115)
[2023-06-08 18:58] LABS: Glucose, Whole Blood 131 mg/dL (60-115)
[2023-06-08 18:58] LABS: Glucose, Whole Blood 82 mg/dL (60-115)
--- NOTE | 2023-06-08 19:13 | MHC.EDTECH ---
Patient 1 set of blood culture and lactic acid drawn and sent to lab .
--- NOTE | 2023-06-08 19:30 | PC.NURSE ---
assumed care of patient, unable to obtain IV line is reason for delay in antibiotics
[2023-06-08] MEDS: cefTRIAXone sodium 1 GM in 0.9 % Sodium Chloride 50 ML IV (19:42)
[2023-06-08] MEDS: 0.9 % Sodium Chloride 1,000 ML 80 ML IVCONT (19:42)
[2023-06-08 19:59] LABS: Lactic Acid 1.9 mmol/L (0.5-2.0)
--- NOTE | 2023-06-08 20:09 | PHA.MEDREC ---
Pharmacy Consult ? Medication Reconciliation Pharmacy has completed the medication reconciliation. Confirmed medication with patient based on claim history. Patient reported his insulin regular u-500 doses as 135units in the am and 140units in the afternoon and evenings and only takes if his his sugar is above 100.
[2023-06-08] MEDS: metroNIDAZOLE/NS 500 MG/100 ML PIGGYBACK 100 MG IV (20:22)
[2023-06-08 21:30] LABS: Glucose, Whole Blood 189 mg/dL (60-115)
[2023-06-08] MEDS: levoFLOXacin/D5W 500 MG/100 ML PIGGYBACK 100 MG IV (21:41)
[2023-06-08] MEDS: oxyCODONE HCl Immed Release 5 MG TABLET PO (23:33)
[2023-06-09] MEDS: metroNIDAZOLE/NS 500 MG/100 ML PIGGYBACK 100 MG IV (05:57)
[2023-06-09 08:00] VITALS: BP 139/82; PULSE 97; RESP 20; TEMP 36.1; O2SAT 96
[2023-06-09 08:08] LABS: Glucose, Whole Blood 181 mg/dL (60-115)
[2023-06-09 08:17] VITALS: PULSE 80; RESP 15; O2SAT 96
--- NOTE | 2023-06-09 08:40 | P.HPGS_ITS ---
History of Present Illness History of Present Illness Date of Service: 06/09/23 <Rocio Rios PA-C - Last Filed: 06/09/23 09:02> 06/09/23 <Vaughn Rios MD - Last Filed: 06/09/23 10:53> Chief complaint: Gallstones <Rocio Riso PA-C - Last Filed: 06/09/23 09:02> Narrative: Darrel Cortes is a 52 year old male with PMH significant for obesity, diabetes mellitus type 2, hyperlipidemia, previous CVA with right hemiparesis, COPD, REGI on CPAP, chronic kidney disease stage 3 with secondary hyper parathyroidism, GERD who presented to the ED with complaints of left upper quadrant abdominal pain. Patient seems to be a rather poor historian, present during interview. He reports he developed LUQ pain two days ago and described this as a fullness. The pain was nonradiating. He denies nausea, vomiting, diarrhea, constipation, fever, chills, dysuria. He saw his PCP who sent him to the ED for further evaluation. In the ED, work up included CBC, BMP, LFTs which was significant for leukocytosis of 16.2, alk phos of [address] lip[address] of [address] scan abd/pelvis and ABD US showed cholelithiasis without pericholecystic fluid collection or wall thickening, no biliary ductal dilatation and pancreas was unremarkable. He was seen last week in the office for his abdominal pain. He reports his pain at that time was in the RUQ and this pain is different. However notes show the pain was in the LUQ/LLQ and RUQ and due to the vagueness of the pain CT scan was ordered to further evaluate as well as GI referral for colonoscopy. This morning, he reports resolution of his abdominal pain. He feels hungry. <Rocio Rios PA-C - Last Filed: 06/09/23 09:02> Review of Systems Constitutional: Constitutional: Denies chills, Denies fever(s) and Denies weight loss <Rocio Rios PA-C - Last Filed: 06/09/23 09:02> ENT: Denies dizziness <Rocio Rios PA-C - Last Filed: 06/09/23 09 :02> Cardiovascular: Cardiovascular: Denies chest pain, Denies palpitations and Denies dyspnea <Rocio Rios PA-C Last Filed: 06/09/23 09:02> Respiratory: Respiratory: Denies dyspnea <Rocio Rios PA-C Last Filed: 06/09/23 09:02> Gastrointestinal: Gastrointestinal: Reports as per HPI <Rocio Rios PA-C Last Filed: 06/09/23 09:02> Genitourinary: Genitourinary: Denies hematuria and Denies dysuria <Rocio Rios PA-C Last Filed: 06/09/23 09:02> Integumentary/Breasts: Skin/Breast: Denies rash and Denies jaundice <Rocio Rios PA-C Last Filed: 06/09/23 09:02> Neurologic: Denies dizziness <Rocio Rios PA-C Last Filed: 06/09/23 09:02> Endocrine: Endocrine: Denies palpitations <Rocio Rios PA-C Last Filed: 06/09/23 09:02> [facility] Past Medical History Medical History: Medical History Leukocytosis Memory loss Obesity Idiopathic gout of multiple sites GERD (gastroesophageal reflux disease) Hypertensive chronic kidney disease Secondary hyperparathyroidism, renal Chronic kidney disease Sleep apnea Type 2 diabetes mellitus Schizoaffective disorder Chronic pain syndrome Diabetic polyneuropathy Gout <Rocio Rios PA-C Last Filed: 06/09/23 09:02> Family History Family History: Family History Father Cancer Diabetes Mother Cancer Diabetes Family/Other Cancer Diabetes <Rocio Rios PA-C Last Filed: 06/09/23 09:02> Surgical History Surgical History: Surgical History No history of previous surgery <Rocio Rios PA-C Last Filed: 06/09/23 09:02> Social History Social History: Social History Household Members: Spouse Housing: Apartment Do you presently have visiting nurse or other home services: No Alcohol intake: never Patient Tobacco Use Status: Never used Tobacco Use of substances other than those prescribed or required for medical reasons: No Currently Displaying Signs/Symptoms of Drug Intoxication Withdrawal: No Have you been hit, kicked, punched, or otherwise hurt by someone within the past year? If so, by whom?: No Do you feel safe in your current relationship?: Yes Is there a partner from a previous relationship who is making you feel unsafe now?: No Are you made to feel afraid or neglected: No Advance Directives: No Advance Directives Information Provided: No Do you have thoughts of harming others: None Do you have a plan to hurt others: No Plan Recently lost weight without trying: No Eating poorly because of decreased appetite: No Nutrition Risks: No Nutritional Risk Poor oral hygiene: No <Rocio Rios PA-C - Last Filed: 06/09/23 09:02> Meds Allergies/Adverse reactions: Allergies Allergy/AdvReac Type Severity Reaction Status Date / Time penicillin V Allergy Mild Rash Verified 06/01/23 10:48 Penicillins [PENICILLINS] Allergy Unknown RASH, Verified 06/01/23 10:48 DIFFICULTY BREATHING <ABDIRIZAK Myers Last Filed: 06/09/23 09:02> Active Medications: Current Medications Dextrose (Dextrose 50 % 25 Gm/50 Ml Syringe) 25 gm IVPUSH Q15M PRN; Protocol PRN Reason: per Hypoglycemia Standing Ord. Glucose (Glucose Gel 15 Gm Gel..Gram.) 15 gm PO Q15M PRN; Protocol PRN Reason: per Hypoglycemia Standing Ord. Heparin Sodium (Porcine) (Heparin Sodium,Porcine 5,000 Unit/Ml Vial) 5,000 unit SUBCUT Q8H [facility] Sodium Chloride (Ns) 1,000 mls @ 80 mls/hr IVCONT .[id number] [facility] Last Infusion: 06/08/23 22:41 Dose: 80 mls/hr Levofloxacin (Levaquin) 500 mg in 100 mls @ 100 mls/hr IV Q24H [facility] Last Infusion: 06/08/23 22:41 Dose: Infused Metronidazole (Flagyl) 500 mg in 100 mls @ 100 mls/hr IV Q12H [facility] Last Infusion: 06/09/23 07:48 Dose: Infused Insulin Human Lispro (Insulin Lispro 100 Unit/Ml 3 Ml Vial) 0 unit SUBCUT QIDACHS [facility]; Protocol Last Admin: 06/09/23 07:47 Dose: Not Given Morphine Sulfate (Morphine Sulfate 4 Mg/Ml Cartridge) 3 mg IVPUSH Q3H PRN; Protocol PRN Reason: Pain, Severe (Pain Scale 7-10) Ondansetron HCl (Ondansetron Hcl 4 Mg/2 Ml Vial) 4 mg IVPUSH Q6H PRN PRN Reason: nausea Sodium Chloride (0.9 % Sodium Chloride Flush 3 Ml Syringe) 3 ml IVFLUSH [facility] Last Admin: 06/09/23 07:48 Dose: Not Given <Rocio Rios PA-C - Last Filed: 06/09/23 09:02> Home medications: Home Medications Medication Instructions Recorded Confirmed Last Taken Type allopurinol 100 mg tablet 50 mg PO DAILY 11/09/22 06/08/23 Unknown History blood-glucose meter,continuous 11/09/22 06/01/23 Unknown History (Dex[employer]ations Specialist) carvedilol 25 mg tablet 25 mg PO BID 11/09/22 06/08/23 Unknown History dulaglutide 4.5 mg/0.5 mL 4.5 mg subcut QWEEK 11/09/22 06/08/23 Unknown History subcutaneous pen injector (Trulicity) empagliflozin 25 mg tablet 25 mg PO DAILY 11/09/22 06/08/23 Unknown History furosemide 80 mg tablet 80 mg PO BID 11/09/22 06/08/23 Unknown History gabapentin 800 mg tablet 800 mg PO DAILY 11/09/22 06/08/23 Unknown History insulin regular hum U-500 conc 500 140 unit subcut DAILY@1200 11/09/22 06/08/23 Unknown History unit/mL subcutaneous soln (Humulin R U-500 (Concentrated) Insulin) losartan 50 mg tablet 100 mg PO DAILY 11/09/22 06/08/23 Unknown History pantoprazole 40 mg tablet,delayed 40 mg PO DAILY 11/09/22 06/08/23 Unknown History release trazodone 150 mg tablet 150 mg PO BEDTIME PRN Sleep 11/09/22 06/08/23 Unknown History acetaminophen 500 mg tablet 1,000 mg PO Q6H PRN fever 06/08/23 06/08/23 Unknown History albuterol sulfate 2.5 mg/3 mL 2.5 mg inhalation Q6H PRN wheezing 06/08/23 06/08/23 Unknown History (0.083 %) solution for nebulization amlodipine 2.5 mg tablet 2.5 mg PO QAM 06/08/23 06/08/23 Unknown History aspirin 81 mg chewable tablet 1 tab PO QAM 06/08/23 06/08/23 Unknown History atorvastatin 80 mg tablet 80 mg PO DAILY 06/08/23 06/08/23 Unknown History calcium carbonate 200 mg calcium 400 mg PO QAM 06/08/23 06/08/23 Unknown History (500 mg) chewable tablet (Calcium Antacid) carboxymethylcellulose sodium 0.5 1 drp ophthalmic (eye) NEEDED 06/08/23 06/08/23 Unknown History % eye drops in a dropperette dry eyes (Lubricant Eye Drops) cholecalciferol (vitamin D3) 50 50 mcg PO QAM 06/08/23 06/08/23 Unknown History mcg (2,000 unit) tablet clonazepam 0.5 mg tablet 0.5 mg PO TID 06/08/23 06/08/23 Unknown History divalproex 500 mg tablet,extended 1,000 mg PO BEDTIME 06/08/23 06/08/23 Unknown History release 24 hr (Depakote ER) ezetimibe 10 mg tablet 10 mg PO QAM 06/08/23 06/08/23 Unknown History gabapentin 600 mg tablet 600 mg PO BID 06/08/23 06/08/23 Unknown History insulin regular hum U-500 conc 500 135 unit subcut DAILY@0730 06/08/23 06/08/23 Unknown History unit/mL(3 mL) subcut pen (Humulin R U-500 (Conc) Insulin Kwikpen) insulin regular hum U-500 conc 500 140 unit subcut DAILY@1730 06/08/23 06/08/23 Unknown History unit/mL(3 mL) subcut pen (Humulin R U-500 (Conc) Insulin Kwikpen) lidocaine 5 % topical patch 1 patch topical DAILY PRN Pain 06/08/23 06/08/23 Unknown History omega-3 300 mg-dha 120 mg-epa 180 1 cap PO BID 06/08/23 06/08/23 Unknown History mg-fish oil 1,000 mg capsule tiotropium bromide 1.25 2 puff inhalation QAM 06/08/23 06/08/23 Unknown History mcg/actuation mist for inhalation (Spiriva Respimat) tramadol 50 mg tablet 50 mg PO Q8H PRN severe pain 06/08/23 06/08/23 Unknown History ziprasidone HCl 80 mg capsule 80 mg PO BEDTIME 06/08/23 06/08/23 Unknown History (Darlyn) <ABDIRIZAK Myers Last Filed: 06/09/23 09:02> Physical Exam Vital Signs: Vital Signs: Last Vital Signs Temp 97.0 F 06/09/23 08:00 Pulse 97 06/09/23 08:00 Resp 15 06/09/23 08:17 BP 139/82 06/09/23 08:00 Pulse Ox 96 06/09/23 08:00 O2 Del Method Room Air 06/09/23 08:00 BMI result Body Mass Index 37.7 <ABDIRIZAK Myers Last Filed: 06/09/23 09:02> Const: General: comfortable, no acute distress and alert <ABDIRIZAK Myers Last Filed: 06/09/23 09:02> Orientation/consciousness: patient oriented x3 <ABDIRIZAK Myers Last Filed: 06/09/23 09:02> Resp: Effort & Inspection: normal respiratory effort <ABDIRIZAK Myers Last Filed: 06/09/23 09:02> GI: Other: protuberant abdomen <ABDIRIZAK Myers Last Filed: 06/09/23 09:02> Inspection: No distended and No scar <ABDIRIZAK Myers Last Filed: 06/09/23 09:02> Palpation (GI): Soft to palpation, nontender, no guarding and not rigid <ABDIRIZAK Myers Last Filed: 06/09/23 09:02> Percussion: Yes normal to percussion <ABDIRIZAK Myers Last Filed: 06/09/23 09:02> Skin: General skin exam: no rashes or lesions noted and no jaundice <ABDIRIZAK Myers Last Filed: 06/09/23 09:02> Neuro: General: patient oriented x3 and moves all extremities <ABDIRIZAK Myers Last Filed: 06/09/23 09:02> Results Results Labs: Short CBC 06/08/23 Range/Units 11:52 WBC 16.2 H (4.8-10.8) X10*3/uL Hgb 14.6 (14.0-18.0) g/dl Hct 43.4 (42.0-52.0) % Plt Count 279 (160-400) X10*3/uL BMP 06/08/23 11:52 Sodium 137 Potassium 3.9 Chloride 107 Carbon Dioxide 21 L BUN 30 H Creatinine 2.08 H Calcium 8.6 D Liver Function 06/08/23 Range/Units 11:52 Total Bilirubin 0.2 (0.0-1.0) mg/dL AST 15 (5-37) U/L ALT 22 (0-40) U/L Alkaline Phosphatase 122 H (39-117) U/L Albumin 3.0 L (3.5-5.0) g/dL Urine 06/08/23 Range/Units 17:22 Urine Color Yellow Urine Appearance Clear Urine pH 5.5 (5.0-9.0) Ur Specific [place] 1.025 (1.005-1.025) Urine Protein >=1000 (4+) H (Neg-Trace) mg/dL Urine Glucose (UA) >=1000 H (Negative) mg/dL <ABDIRIZAK Myers Last Filed: 06/09/23 09:02> Abdomen CT scan report/results: report reviewed and image reviewed <ABDIRIZAK Myers Last Filed: 06/09/23 09:02> Assessment and Plan (1) Abdominal pain, left upper quadrant: Status: Acute <ABDIRIZAK Myers Last Filed: 06/09/23 09:02> Seen and examined multiple times this morning He was admitted last night because of gallstones However, he has very atypical symptoms - described having pain on the left side denies Denies any right upper quadrant pain No tenderness, no Esparza sign at this time Abdomen very soft Clinically looks well Although ultrasound shows what appears to be a stone in the neck, unlikely to be cholecystitis I have reviewed his CAT scan and ultrasound as well - no evidence of any clinical hemorrhoidal changes in the gallbladder, biliary does not appear to be distended or with increased intraluminal pressure I would hold off on cholecystectomy at this time in view of very atypical symptoms Will advance diet He has been seen by Dr. Gentile in the office - if he gets discharge, he may follow-up with Dr. Gentile Seen and examined independently <Vaughn Rios MD - Last Filed: 06/09/23 10:53> 52 year old male with PMH significant for obesity, diabetes mellitus type 2, hyperlipidemia, previous CVA with right hemiparesis, COPD, REGI on CPAP, chronic kidney disease, GERD with complaints of left upper quadrant abdominal pain with ABD US showing gallstones without acute changes. Unclear etiology of pain. He does have a leukocytosis however this is chronic and has been seen by heme/onc who feels it is probably leukemoid reaction secondary to obesity and metabolic syndrome. Repeat WBC count is improved as well. His abdomen is completely nontender and he is nontoxic appearing. His pain and presentation is very atypical for acute cholecystitis, biliary colic. Will therefore advance to low fat diet. If tolerating, stable for DC to home with outpatient follow up. Patient and comfortable with plan. <Rocio Rios PA-C - Last Filed: 06/09/23 09:02> Quality Stroke Does the patient have a stroke diagnosis?: No <Rocio Rios PA-C - Last Filed: 06/09/23 09:02> VTE Prior VTE?: No <Rocio Rios PA-C - Last Filed: 06/09/23 09:02> VTE Risk Level:: Medical - moderate - high <Rocio Rios PA-C - Last Filed: 06/09/23 09:02> VTE Device Contraindication: N/A - Device Ordered <Rocio Rios PA-C - Last Filed: 06/09/23 09:02> VTE Drug Contraindication: N/A - Med Ordered <Rocio Rios PA-C - Last Filed: 06/09/23 09:02> Procedures Date of Service Date of Service: 06/09/23 <Rocio Rios PA-C - Last Filed: 06/09/23 09:02> 06/09/23 <Vaughn Rios MD - Last Filed: 06/09/23 10:53>
[2023-06-09] MEDS: Insulin Lispro 100 UNIT/ML 3 ML VIAL SUBCUT ×2 (08:45→12:43)
[2023-06-09] MEDS: 0.9 % Sodium Chloride 1,000 ML 80 ML IVCONT (08:45)
[2023-06-09 08:53] LABS: Hematocrit 49.1 % (42.0-52.0); Hemoglobin 15.7 g/dl (14.0-18.0); Mean Corpuscular Volume 87.7 fL (80.0-98.0); Mean Platelet Volume 12.3 fL (9.4-12.4); Platelet Count 276 X10*3/uL (160-400); Red Cell Distribution Width 15.3 % (11.0-16.0); White Blood Count 13.6 X10*3/uL (4.8-10.8)
[2023-06-09 09:10] LABS: Alanine Aminotransferase 26 U/L (0-40); Albumin Level 3.4 g/dL (3.5-5.0); Alkaline Phosphatase 148 U/L (39-117); Anion Gap 12 (12-20); Aspartate Amino Transferase 16 U/L (5-37); Bilirubin Direct 0.2 mg/dL (0.0-0.5); Bilirubin Total 0.5 mg/dL (0.0-1.0); Blood Urea Nitrogen 21 mg/dL (9-16); Calcium 9.5 mg/dL (8.4-10.2); Carbon Dioxide 25 mmol/L (22-29); Chloride 106 mmol/L (96-108); Estimated Glomerular Filt Rate 40; Glucose Random 196 mg/dL (60-115); Potassium 4.1 mmol/L (3.3-5.1); Sodium 139 mmol/L (135-145); Total Protein 7.1 g/dL (6.5-8.0)
[2023-06-09 11:21] LABS: Glucose, Whole Blood 272 mg/dL (60-115)
[2023-06-09] MEDS: Ezetimibe 10 MG TABLET PO (11:42)
[2023-06-09] MEDS: Aspirin 81 MG TAB.CHEW PO (11:42)
[2023-06-09] MEDS: amLODIPine Besylate 2.5 MG TABLET PO (11:42)
[2023-06-09] MEDS: Losartan Potassium 50 MG TABLET 100 MG PO (11:43)
[2023-06-09] MEDS: carvediloL 25 MG TABLET PO (11:43)
[2023-06-09 12:10] LABS: Estimated Average Glucose 295 mg/dL; Hemoglobin A1c % 11.9 % (<6.0)
--- NOTE | 2023-06-09 14:10 | PM.EVENT ---
Event Note Date of Service: 06/09/23 Event Note: Patient examined multiple times throughout the day He remained symptomatic Abdomen remained soft, nontender Tolerating diet well He feels well and states that he is ready to be discharged He will be discharged and has been given discharge instructions Clinically not consistent with acute cholecystitis Left-sided abdominal pain is uncertain etiology CT scan does not reveal any pathology He does have gallstones so he may benefit from cholecystectomy down the line once no other pathology is identified Time Spent With Patient Time: Total time managing care of this patient today ____ minutes.
--- NOTE | 2023-06-13 12:06 | PM.DS ---
DS: Providers Provider Date of Service: 06/09/23 Date of admission: 06/08/23 19:00 Date of discharge: 06/09/23 Primary care physician: Katrin López MD Attending physician on admission: Vaughn Rios Consults: 06/08/23 19:03 Consult to Hospitalist Routine Comment: Consulting Provider: Hospitalist Reason For Exam: DM Attending physician on discharge: Vaughn Rios DS: Diagnosis Discharge Diagnosis (1) Abdominal pain, left upper quadrant: Status: Acute DS: Summary Hospital Course Hospital Course: HPI AT ADMISSION: Darrel Cortes is a 52 year old male with PMH significant for obesity, diabetes mellitus type 2, hyperlipidemia, previous CVA with right hemiparesis, COPD, REGI on CPAP, chronic kidney disease stage 3 with secondary hyperparathyroidism, GERD who presented to the ED with complaints of left upper quadrant abdominal pain. Patient seems to be a rather poor historian, present during interview. He reports he developed LUQ pain two days ago and described this as a fullness. The pain was nonradiating. He denies nausea, vomiting, diarrhea, constipation, fever, chills, dysuria. He saw his PCP who sent him to the ED for further evaluation. In the ED, work up included CBC, BMP, LFTs which was significant for leukocytosis of 16.2, alk phos of [address] lip[address] of [address]. [address] scan abd/pelvis and ABD US showed cholelithiasis without pericholecystic fluid collection or wall thickening, no biliary ductal dilatation and pancreas was unremarkable. He was seen last week in the office for his abdominal pain. He reports his pain at that time was in the RUQ and this pain is different. However notes show the pain was in the LUQ/LLQ and RUQ and due to the vagueness of the pain CT scan was ordered to further evaluate as well as GI referral for colonoscopy. This morning, he reports resolution of his abdominal pain. He feels hungry. HOSPITAL COURSE: He was admitted to the surgical service for further treatment. Imaging was concerning for early acute cholecystitis with impacted gallstone at the gallbladder neck. However the patient's pain was very atypical for acute cholecystitis and he had resolution of the abdominal pain upon evaluation. He was clinically appearing well and his abdomen was benign without any tenderness or reynolds sign. It was therefore discussed to hold off on any surgical intervention and his diet was advanced. He was reassessed later in the day and was tolerating a solid diet without any recurrence of symptoms. He felt ready for discharge. He was discharged to home on 06/09/23 in stable condition. He is to follow back up with Dr. Gentile in the office. Status at Discharge Functional status at discharge: independent ambulation Overall status at discharge: patient is back to baseline Time Attestation Discharge coordination time: Less than 30 minutes Quality: Safe Use of Opioids Does Pt have an Active Cancer Diagnosis on the Problem List?: No Quality: Stroke Does the patient have a stroke diagnosis?: No Physical Exam Vital Signs: Vital Signs: Last Vital Signs Temp 97.0 F 06/09/23 08:00 Pulse 97 06/09/23 08:00 Resp 15 06/09/23 08:17 BP 139/82 06/09/23 08:00 Pulse Ox 96 06/09/23 08:00 O2 Del Method Room Air 06/09/23 08:00 BMI result Body Mass Index 37.7 Const: General: comfortable, no acute distress and alert Orientation/consciousness: patient oriented x3 Resp: Effort & Inspection: normal respiratory effort GI: Other: protuberant Palpation (GI): Soft to palpation and nontender Skin: General skin exam: no rashes or lesions noted and no jaundice Neuro: General: patient oriented x3 DS: Data Data Completed and Pending Labs on day of discharge: Preliminary micro results at discharge 06/08/23 19:40 Blood Culture - Preliminary Blood - Venous No growth after 48 hours. 06/08/23 19:04 Blood Culture - Preliminary Blood - Venous No growth after 48 hours. Discharge Plan Discharge Anticipated Discharge Date/Time: 06/09/23 15:29 Patient Disposition: Home, Self-Care Discharge Diagnosis: abdominal pain, gallstones Referrals: Blake Gentile MD [Physician] - 2 Weeks Katrin Santoyo MD [Primary Care Provider] - 1 Week Discharge Medications: Continued ziprasidone HCl [Geodon] 80 mg capsule 80 mg PO BEDTIME atorvastatin 80 mg tablet 80 mg PO DAILY albuterol sulfate 2.5 mg /3 mL (0.083 %) solution for nebulization 2.5 mg inhalation Q6H PRN (Reason: wheezing) clonazepam 0.5 mg tablet 0.5 mg PO TID amlodipine 2.5 mg tablet 2.5 mg PO QAM tramadol 50 mg tablet 50 mg PO Q8H PRN (Reason: severe pain) acetaminophen 500 mg tablet 1,000 mg PO Q6H PRN (Reason: fever) divalproex [Depakote ER] 500 mg tablet extended release 24 hr 1,000 mg PO BEDTIME lidocaine 5 % adhesive patch,medicated 1 patch topical DAILY PRN (Reason: Pain) calcium carbonate [Calcium Antacid] 200 mg calcium (500 mg) tablet,chewable 400 mg PO QAM ezetimibe 10 mg tablet 10 mg PO QAM carboxymethylcellulose sodium [Lubricant Eye Drops] 0.5 % dropperette 1 drp ophthalmic (eye) NEEDED cholecalciferol (vitamin D3) 50 mcg (2,000 unit) tablet 50 mcg PO QAM Spiriva Respimat 1.25 mcg/actuation mist 2 puff INHALATION QAM omega 9-[id number]-fish oil 300 mg (120 mg- 180mg)-1,000 mg capsule 1 cap PO BID aspirin 81 mg tablet,chewable 1 tab PO QAM gabapentin 600 mg tablet 600 mg PO BID Humulin R U-500 (Conc) Kwikpen 500 unit/mL (3 mL) insulin pen 140 unit subcut DAILY@1730 Rx Instructions: hold if BS < 100 Humulin R U-500 (Conc) Kwikpen 500 unit/mL (3 mL) insulin pen 135 unit subcut DAILY@0730 Rx Instructions: hold if BS < 100 gabapentin 800 mg tablet 800 mg PO DAILY losartan 50 mg tablet 100 mg PO DAILY Trulicity 4.5 mg/0.5 mL pen injector 4.5 mg subcut QWEEK trazodone 150 mg tablet 150 mg PO BEDTIME PRN (Reason: Sleep) Humulin R U-500 (Conc) Insulin 500 unit/mL solution 140 unit subcut DAILY@1200 Rx Instructions: hold if BS < 100 pantoprazole 40 mg tablet,delayed release (DR/EC) 40 mg PO DAILY furosemide 80 mg tablet 80 mg PO BID empagliflozin 25 mg tablet 25 mg PO DAILY carvedilol 25 mg tablet 25 mg PO BID Rx Instructions: must administer with a meal/food allopurinol 100 mg tablet 50 mg PO DAILY (DME) Dexcom G7 Athletics Director Misc See Rx Instructions .Route Rx Instructions: As directed Discharge Orders: Discharge Order (Routine); Ordered 06/09/23 Ordered By: Vaughn Rios Diet: Diabetic diet Activity on Discharge: As tolerated Stand Alone Forms: Patient Portal Discharge page Activity Restrictions/Additional Instructions: Follow up in office in 2 weeks. ([phone]) Call Your Doctor If: ? ? -Your temperature exceeds 101.5? F? ? ? -You experience excessive pain or swelling ? ? -You experience continued vomiting/nausea Care Plan Goals: Return to baseline health and resume normal activities. Health Concerns: T2DM CKD GERD REGI on CPAP Gallstones Plan of Treatment: ffup with Dr Gentile Assessment: Improved Discharge Date/Time: 06/09/23 14:34
== END 2023-06-09 14:34 | disposition home or self-care (01) ==
LOC: HO.ED 18:57 → HO.EDOVER 19:16 → HO.S3 19:42
PROVIDERS: Physician Assistant; Student in an Organized Health Care Education/Training Program; Admitting Provider Surgery; Emergency Provider Student in an Organized Health Care Education/Training Program; PCP Student in an Organized Health Care Education/Training Program; Visit Provider Surgery
DX: K80.20 Calculus of gallbladder without cholecystitis without obstruction (principal); E11.22 Type 2 diabetes mellitus with diabetic chronic kidney disease; E11.42 Type 2 diabetes mellitus with diabetic polyneuropathy; I69.351 Hemiplegia and hemiparesis following cerebral infarction affecting right dominant side; N25.81 Secondary hyperparathyroidism of renal origin; N18.30 Chronic kidney disease, stage 3 unspecified; E88.810 Metabolic syndrome; E66.9 Obesity, unspecified; Z68.37 Body mass index [BMI] 37.0-37.9, adult; Z79.4 Long term (current) use of insulin; Z79.82 Long term (current) use of aspirin; Z79.899 Other long term (current) drug therapy
CPT/HCPCS: 36415; 74176; 76705; 80048; 80053; 80076; 81001; 82947; 83036; 83605; 83690; 85025; 85027; 87040; 94660; 99221; 99285; J0696; J1836; J1956

== ENCOUNTER → 2023-06-08 19:00 | Outpatient (BNV) | payer MEDICAID, SELFPAY | PROVIDERS: Admitting Provider Surgery; Emergency Provider Student in an Organized Health Care Education/Training Program; PCP Student in an Organized Health Care Education/Training Program; Visit Provider Surgery | DX: R10.12 Left upper quadrant pain (principal) | CPT/HCPCS: 99222; 99238; 99499 ==

== ENCOUNTER 2023-06-15 14:06 | Outpatient (AMB) | payer MEDICAID, SELFPAY ==
--- NOTE | 2023-06-15 14:09 | MHC.OFFVIS ---
Intake Vital Signs 06/15/23 14:15 Height 5 ft 8 in Weight 251 lb BMI 38.2 BP 129/75 Blood Pressure Location Lt brachial Position Sitting Pulse 116 H Intake Visit Reasons: Discuss CT & poss surgery Intake Note: Patient is seen in office to for CT scan results and to discuss surgery. 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 Present Accompanied by: Self / Same As Patient Allergies penicillin V Allergy (Mild, Verified 06/15/23 14:17) Rash Penicillins [PENICILLINS] Allergy (Unknown, Verified 06/15/23 14:17) RASH, DIFFICULTY BREATHING Medication List - Last Reconciled 06/15/23 by Blake Gentile MD acetaminophen 1,000 mg PO Q6H PRN albuterol sulfate 2.5 mg inhalation Q6H PRN allopurinol 50 mg PO DAILY amlodipine 2.5 mg PO QAM aspirin 1 tab PO QAM atorvastatin 80 mg PO DAILY blood-glucose meter,continuous (Dexcom G7 Costume Mistress) As directed calcium carbonate (Calcium Antacid) 400 mg PO QAM carboxymethylcellulose sodium 0.5% (Lubricant Eye Drops) 1 drp ophthalmic (eye) NEEDED carvedilol 25 mg PO BID cholecalciferol (vitamin D3) 50 mcg PO QAM clonazepam 0.5 mg PO TID divalproex ER (Depakote ER) 1,000 mg PO BEDTIME doxycycline hyclate 100 mg PO BID dulaglutide (Trulicity) 4.5 mg subcut QWEEK empagliflozin 25 mg PO DAILY ezetimibe 10 mg PO QAM furosemide 80 mg PO BID gabapentin 600 mg PO BID gabapentin 800 mg PO DAILY insulin regular hum U-500 conc (Humulin R U-500 (Conc) Insulin Kwikpen) 140 units subcut DAILY@1730 insulin regular hum U-500 conc (Humulin R U-500 (Conc) Insulin Kwikpen) 135 units subcut DAILY@0730 insulin regular hum U-500 conc (Humulin R U-500 (Concentrated) Insulin) 140 units subcut DAILY@1200 lidocaine 5% 1 patch topical DAILY PRN losartan 100 mg PO DAILY omega 4-vah-wqp-fish oil 300 mg (120 mg- 180mg)-1,000 mg 1 cap PO BID pantoprazole 40 mg PO DAILY tiotropium bromide 1.25 mcg/actuation (Spiriva Respimat) 2 puffs inhalation QAM tramadol 50 mg PO Q8H PRN trazodone 150 mg PO BEDTIME PRN ziprasidone HCl (Geodon) 80 mg PO BEDTIME HPI HPI Comments History of Present Illness Details Patient returns for follow-up visit after his recent admission for abdominal pain. Was found to have gallstones without cholecystitis and the pain subsequently resolved after starting antibiotics. He denies any nausea or vomiting, fever or chills. [facility] Medical History Leukocytosis Memory loss Obesity Idiopathic gout of multiple sites GERD (gastroesophageal reflux disease) Hypertensive chronic kidney disease Secondary hyperparathyroidism, renal Chronic kidney disease Sleep apnea Type 2 diabetes mellitus Schizoaffective disorder Chronic pain syndrome Diabetic polyneuropathy Gout Surgical History No history of previous surgery Family History Father Cancer Diabetes Mother Cancer Diabetes Family/Other Cancer Diabetes Social History Household Members: Spouse Housing: Apartment Do you presently have visiting nurse or other home services: No Alcohol intake: never Patient Tobacco Use Status: Never used Tobacco Review of Systems Const All systems reviewed & are unremarkable except as noted in HPI and below Physical Exam Vital Signs: Last Vital Signs Pulse 116 H 06/15/23 14:15 BP 129/75 06/15/23 14:15 BMI result Body Mass Index 38.2 Const General: cooperative and no acute distress Nutritional Appearance: well nourished Orientation/consciousness: patient oriented x3 Limitations: no limitations HEENT Head: Yes normocephalic and Yes atraumatic Ears: hearing grossly normal bilaterally Resp Effort & Inspection: normal respiratory effort, no audible wheezes, no cough and no respiratory distress Cardio Jugular venous distension: no JVD GI Inspection: Yes normal to inspection Palpation (GI): Soft to palpation, nontender, no guarding and not rigid Percussion: Yes normal to percussion Auscultation: normal bowel sounds Rectal Exam - Male: Yes deferred Skin Other: Warm, dry, no rash, skin changes noted in abdomen secondary to insulin injection. Neuro General: patient oriented x3 Extrem General: Yes no clubbing, cyanosis or edema Assessment & Plan Assessment & Plan (1) Cholecystitis: Code(s): K81.9 - Cholecystitis, unspecified Plan Patient with history of possible cholecystitis however examination and history appeared not consistent with cholecystitis. Workup with CT abdomen and pelvis was negative for any cause of left-sided abdominal pain previously experienced. I recommended he avoid fatty/fried foods as much as possible. He should follow up as needed. Medications: New doxycycline hyclate 100 mg PO BID 14 tabs 0RF K81.9 - Cholecystitis, unspecified Coding Level of Care Code Est Pt Level 3 (50197) Diagnoses Cholecystitis K81.9
[2023-06-15 14:15] VITALS: BP 129/75; PULSE 116; BMI 38.2
== END 2023-06-15 14:45 | disposition home or self-care (01) ==
PROVIDERS: PCP Student in an Organized Health Care Education/Training Program; Visit Provider Surgery
DX: K81.9 Cholecystitis, unspecified (principal)
CPT/HCPCS: 99213

== ENCOUNTER → 2023-06-15 14:06 | Outpatient (BNVA) | payer MEDICAID, SELFPAY | PROVIDERS: PCP Student in an Organized Health Care Education/Training Program; Visit Provider Surgery | DX: K81.9 Cholecystitis, unspecified (principal) | CPT/HCPCS: 99212 ==

== ENCOUNTER 2023-06-21 10:23 | Outpatient (REF) | payer MEDICAID, SELFPAY ==
[2023-06-21 11:26] LABS: MANUAL DIFF FLAG NO
[2023-06-21 12:08] LABS: Basophils Absolute Auto 0.1 X10*3/uL (0.0-0.2); Basophils Percent Auto 0.5 % (0-2); Eosinophils Absolute Auto 0.6 X10*3/uL (0.0-0.4); Eosinophils Percent Auto 3.7 % (0-4); Hematocrit 46.6 % (42.0-52.0); Hemoglobin 15.3 g/dl (14.0-18.0); Imm Gran Abs Auto 0.07 X10*3/uL (0.00-0.03); Imm Gran Pct Auto 0.5 % (0.0-0.4); Lymphocytes Absolute Auto 3.6 X10*3/uL (1.2-4.9); Lymphocytes Percent Auto 23.8 % (20-40); Mean Corpuscular HGB Conc 32.8 g/dl (31.0-36.0); Mean Corpuscular Hemoglobin 28.3 pg (27.0-33.0); Mean Corpuscular Volume 86.1 fL (80.0-98.0); Mean Platelet Volume 13.3 fL (9.4-12.4); Monocytes Absolute Auto 1.2 X10*3/uL (0.1-1.2); Neutrophils Absolute Auto 9.5 x10*3/uL (2.0-8.3); Neutrophils Percent Auto 63.5 % (45-73); Platelet Count 276 X10*3/uL (160-400); Red Blood Count 5.41 X10*6/uL (4.60-5.80); Red Cell Distribution Width 14.3 % (11.0-16.0); White Blood Count 14.9 X10*3/uL (4.8-10.8)
[2023-06-21 12:11] LABS: Alanine Aminotransferase 19 U/L (0-40); Albumin Level 3.1 g/dL (3.5-5.0); Alkaline Phosphatase 141 U/L (39-117); Amylase 221 U/L (28-100); Aspartate Amino Transferase 11 U/L (5-37); Bilirubin Direct 0.2 mg/dL (0.0-0.5); Bilirubin Total 0.4 mg/dL (0.0-1.0); Total Protein 6.8 g/dL (6.5-8.0)
[2023-06-21 12:26] LABS: Lipase 575 U/L (8-78)
[2023-06-21 13:21] LABS: Erythrocyte Sedimentation Rate 57 MM/HR (0-15)
== END 2023-06-21 10:24 | disposition home or self-care (01) ==
LOC: HO.HHCL 10:23
PROVIDERS: Visit Provider Internal Medicine
DX: K80.70 Calculus of gallbladder and bile duct without cholecystitis without obstruction (principal)
CPT/HCPCS: 36415; 80076; 82150; 83690; 85025; 85652

== ENCOUNTER 2023-06-22 10:34 | Emergency (ER) | payer MEDICAID, SELFPAY ==
[2023-06-22] VITALS (8 sets, daily range): BP systolic 130–137; BP diastolic 82–93; PULSE 77–90; RESP 12–19; TEMP 36.2–36.7; O2SAT 78–99; BMI 39.2
--- NOTE | ~2023-06-22 | US_ITS ---
EXAMINATION: US ABDOMEN LIMITED CLINICAL INFORMATION: Elevated lipase, abdominal pain and cholecystitis.. COMPARISON: None available. TECHNIQUE: Real-time imaging of the right upper quadrant abdominal viscera. FINDINGS: GALLBLADDER: The gallbladder is physiologically distended with multiple echogenic stones. Gallbladder wall thickness is 0.4 cm. No pericholecystic fluid collection seen.. COMMON BILE DUCT: Normal in caliber measuring 0.4 cm in diameter. US/US abdomen limited IMPRESSION: Cholelithiasis with mild gallbladder wall thickening.
--- NOTE | ~2023-06-22 | CT_ITS ---
EXAMINATION: CT ABDOMEN AND PELVIS WITHOUT CONTRAST CLINICAL INFORMATION: upper ABD pain, nausea, ?pancreatitis COMPARISON: CT abdomen and pelvis 06/08/23 TECHNIQUE: Multidetector volumetric imaging was performed from the superior aspect of the liver through the pubic symphysis. Sagittal and coronal reformatted images were obtained on the technologist's workstation. This CT examination was performed using dose optimization techniques as appropriate, variously including the following: *Automated exposure control *Adjustment of mA and/or kV according to patient size (this includes techniques or standardized protocols for targeted exams where dose is matched to indication/reason for exam; i.e. extremities or head) *Use of iterative reconstruction technique DLP: 885 mGy-cm FINDINGS: LUNG BASES: The visualized lung bases are unremarkable. Linear atelectasis of the lower lobes. LIVER, GALLBLADDER, AND BILIARY TREE: The liver is normal in size, shape, and attenuation. No focal hepatic lesion or biliary ductal dilatation is present. Cholelithiasis. No gallbladder wall thickening or pericholecystic fluid. PANCREAS: Unremarkable. SPLEEN: Unremarkable. ADRENAL GLANDS: Unremarkable. KIDNEYS AND URETERS: The kidneys are normal in size, shape, and attenuation. No hydronephrosis, hydroureter, or calculi seen. No perinephric stranding. BLADDER: Bladder wall thickening which may reflect under distention versus cystitis. GASTROINTESTINAL TRACT: The small and large bowel are unremarkable. The appendix is unremarkable. ABDOMINAL WALL: No significant hernia is appreciated. LYMPH NODES: Normal. VASCULAR: Aortoiliac atherosclerotic calcification. Normal caliber of the abdominal aorta. PELVIC VISCERA: Unremarkable. OSSEOUS STRUCTURES: Unremarkable. CT/CT abdomen pelvis wo IV con IMPRESSION: 1. No evidence of pancreatitis as clinically queried. 2. Wall thickening of the urinary bladder which may reflect under distention versus cystitis. Correlate with urinalysis. Fleischner guidelines were followed.
[2023-06-22 11:07] LABS: Basophils Absolute Auto 0.1 X10*3/uL (0.0-0.2); Basophils Percent Auto 0.7 % (0-2); Eosinophils Absolute Auto 0.5 X10*3/uL (0.0-0.4); Eosinophils Percent Auto 3.7 % (0-4); Hematocrit 47.6 % (42.0-52.0); Hemoglobin 15.5 g/dl (14.0-18.0); Imm Gran Pct Auto 0.7 % (0.0-0.4); Lymphocytes Absolute Auto 2.6 X10*3/uL (1.2-4.9); Lymphocytes Percent Auto 19.1 % (20-40); MANUAL DIFF FLAG SCAN; Mean Corpuscular HGB Conc 32.6 g/dl (31.0-36.0); Mean Corpuscular Hemoglobin 28.9 pg (27.0-33.0); Mean Corpuscular Volume 88.8 fL (80.0-98.0); Monocytes Absolute Auto 0.8 X10*3/uL (0.1-1.2); Neutrophils Absolute Auto 9.6 x10*3/uL (2.0-8.3); Neutrophils Percent Auto 69.8 % (45-73); PLT CLUMP 1; Red Blood Count 5.36 X10*6/uL (4.60-5.80); Red Cell Distribution Width 14.8 % (11.0-16.0); SCAN SMEAR FLAG 1
[2023-06-22 11:08] LABS: White Blood Count 13.7 X10*3/uL (4.8-10.8)
[2023-06-22 11:57] LABS: Platelet Count 239 X10*3/uL (160-400)
[2023-06-22 11:58] LABS: SLIDE REVIEW VERIFIED
--- NOTE | 2023-06-22 13:49 | ED.GENADULT ---
HPI - General Adult General Chief complaint: Abdominal Pain Stated complaint: Referred by PCP - abnormal labs Time Seen by Provider: 06/22/23 16:02 Source: patient Mode of arrival: ambulatory Limitations: language barrier (Kiswahili-speaking certified court interpreter utilized) History of Present Illness HPI narrative: Patient is a 52-year-old male who presents emergency department by advised of his primary care provider who has told him that he has pancreatitis. He states that he was recently admitted in the hospital, his PCP had ordered labs yesterday as follow-up was advised today to come to the ED. his initial triage no indicated he had been experiencing abdominal discomfort and nausea for 3 days, however he reports to me that he has not been experiencing any abdominal pain nausea vomiting fevers chills over the past week. Related Data Home Medications Medication Instructions Recorded Confirmed allopurinol 100 mg tablet 50 mg PO DAILY 11/09/22 06/15/23 blood-glucose meter,continuous 11/09/22 06/15/23 (Dexcom G7 Slip Maker) carvedilol 25 mg tablet 25 mg PO BID 11/09/22 06/15/23 dulaglutide 4.5 mg/0.5 mL 4.5 mg subcut QWEEK 11/09/22 06/15/23 subcutaneous pen injector (Trulicity) empagliflozin 25 mg tablet 25 mg PO DAILY 11/09/22 06/15/23 furosemide 80 mg tablet 80 mg PO BID 11/09/22 06/15/23 gabapentin 800 mg tablet 800 mg PO DAILY 11/09/22 06/15/23 insulin regular hum U-500 conc 500 140 unit subcut DAILY@1200 11/09/22 06/15/23 unit/mL subcutaneous soln (Humulin R U-500 (Concentrated) Insulin) losartan 50 mg tablet 100 mg PO DAILY 11/09/22 06/15/23 pantoprazole 40 mg tablet,delayed 40 mg PO DAILY 11/09/22 06/15/23 release trazodone 150 mg tablet 150 mg PO BEDTIME PRN Sleep 11/09/22 06/15/23 acetaminophen 500 mg tablet 1,000 mg PO Q6H PRN fever 06/08/23 06/15/23 albuterol sulfate 2.5 mg/3 mL 2.5 mg inhalation Q6H PRN wheezing 06/08/23 06/15/23 (0.083 %) solution for nebulization amlodipine 2.5 mg tablet 2.5 mg PO QAM 06/08/23 06/15/23 aspirin 81 mg chewable tablet 1 tab PO QAM 06/08/23 06/15/23 atorvastatin 80 mg tablet 80 mg PO DAILY 06/08/23 06/15/23 calcium carbonate 200 mg calcium 400 mg PO QAM 06/08/23 06/15/23 (500 mg) chewable tablet (Calcium Antacid) carboxymethylcellulose sodium 0.5 1 drp ophthalmic (eye) NEEDED 06/08/23 06/15/23 % eye drops in a dropperette dry eyes (Lubricant Eye Drops) cholecalciferol (vitamin D3) 50 50 mcg PO QAM 06/08/23 06/15/23 mcg (2,000 unit) tablet clonazepam 0.5 mg tablet 0.5 mg PO TID 06/08/23 06/15/23 divalproex 500 mg tablet,extended 1,000 mg PO BEDTIME 06/08/23 06/15/23 release 24 hr (Depakote ER) ezetimibe 10 mg tablet 10 mg PO QAM 06/08/23 06/15/23 gabapentin 600 mg tablet 600 mg PO BID 06/08/23 06/15/23 insulin regular hum U-500 conc 500 135 unit subcut DAILY@0730 06/08/23 06/15/23 unit/mL(3 mL) subcut pen (Humulin R U-500 (Conc) Insulin Kwikpen) insulin regular hum U-500 conc 500 140 unit subcut DAILY@1730 06/08/23 06/15/23 unit/mL(3 mL) subcut pen (Humulin R U-500 (Conc) Insulin Kwikpen) lidocaine 5 % topical patch 1 patch topical DAILY PRN Pain 06/08/23 06/15/23 omega-3 300 mg-dha 120 mg-epa 180 1 cap PO BID 06/08/23 06/15/23 mg-fish oil 1,000 mg capsule tiotropium bromide 1.25 2 puff inhalation QAM 06/08/23 06/15/23 mcg/actuation mist for inhalation (Spiriva Respimat) tramadol 50 mg tablet 50 mg PO Q8H PRN severe pain 06/08/23 06/15/23 ziprasidone HCl 80 mg capsule 80 mg PO BEDTIME 06/08/23 06/15/23 (Darlyn) Previous Rx's Medication Instructions Recorded doxycycline hyclate 100 mg tablet 100 mg PO BID #14 tabs 06/15/23 Allergies Allergy/AdvReac Type Severity Reaction Status Date / Time penicillin V Allergy Mild Rash Verified 06/22/23 10:39 Penicillins [PENICILLINS] Allergy Unknown RASH, Verified 06/22/23 10:39 DIFFICULTY BREATHING Review of Systems Review of Systems: Yes all other systems are reviewed and are negative [facility] Past Medical History Attestation statement: The following information was validated with the patient. Source: old records reviewed Medical History Leukocytosis Memory loss Obesity Idiopathic gout of multiple sites GERD (gastroesophageal reflux disease) Hypertensive chronic kidney disease Secondary hyperparathyroidism, renal Chronic kidney disease Sleep apnea Type 2 diabetes mellitus Schizoaffective disorder Chronic pain syndrome Diabetic polyneuropathy Gout Surgical History No history of previous surgery Family History Family History Father Cancer Diabetes Mother Cancer Diabetes Family/Other Cancer Diabetes Social History Social History Household Members: Spouse Housing: Apartment Do you presently have visiting nurse or other home services: No Alcohol intake: never Patient Tobacco Use Status: Never used Tobacco Smoked in Last 30 Days: No Use of substances other than those prescribed or required for medical reasons: No Advance Directives: No Advance Directives Information Provided: No Physical Exam ED Vital Signs: Vital Signs - 24 hr 06/22/23 10:40 06/22/23 13:47 06/22/23 14:50 Temperature 98 F 97.2 F 98 F Pulse Rate 88 90 90 Respiratory Rate 19 19 16 Blood Pressure 137/84 137/93 H Pulse Oximetry 99 95 97 Oxygen Delivery Method Room Air Room Air Oxygen Flow Rate 06/22/23 14:51 06/22/23 16:00 06/22/23 17:19 Temperature 98.0 F Pulse Rate 80 78 Respiratory Rate 16 13 Blood Pressure 130/89 130/89 130/89 Pulse Oximetry 95 78 L Oxygen Delivery Method Room Air Room Air Oxygen Flow Rate 06/22/23 17:26 06/22/23 19:05 Temperature Pulse Rate 77 Respiratory Rate 12 Blood Pressure 130/82 Pulse Oximetry 97 95 Oxygen Delivery Method Nasal Cannula Nasal Cannula Oxygen Flow Rate 3 2 BMI result Body Mass Index 39.2 Appearance: Alert.?Oriented to person, place and time. No acute distress.?Normal affect. Eyes: Pupils equal, round and reactive to light.? ENT: Pharynx normal.?? Neck: Normal inspection.? Neck supple.?? CVS: Heart sounds normal. Normal heart rate and rhythm.? Pulses normal.?? Respiratory: No respiratory distress.? Lung sounds clear to auscultation bilaterally?? Abdomen: Soft and non-tender. Normoactive bowel sounds. No pulsatile mass.?? Skin: Skin warm and dry.? Normal skin color.? ? Extremities: No lower extremity edema.? No calf ttp? Neuro: Moves all extremities spontaneously. Sensation intact bilaterally. Ambulates with normal steady gait. Course Course Course Narrative: This is a rapid medical exam: Additional HPI, ROS, PE not included below will be deferred to primary provider. Patient is a 52-year-old male with history of DM presenting to the ED with complaint of nausea, upper abdominal pain for 3 days. States labs drawn by PCP yesterday were concerning for pancreatitis. Also states his glucose is reading 311 on his glucometer. Plan: labs Reevaluation(s) Reevaluation #1: CT reveals cholelithiasis, no evidence of cholecystitis, no evidence of pancreatitis, wall thickening of the bladder, urinalysis is without evidence of infection and he denies urinary symptoms. Hypoglycemia resolved with D50 intravenously. Abdominal ultrasound reveals cholelithiasis and mild gallbladder wall thickening of 0.4 cm, no pericholecystic fluid collection seen, he continues to deny having any abdominal pain has had no nausea or vomiting, he is Tolerating oral intake at this time without complication. Spoke with patient about having repeat labs to check renal function after IV fluids, he however declines, wants to go home, plans to follow-up with PCP. Reviewed this case with ED attending, Dr. Meza who recommends follow-up with GI for further evaluation of elevated amylase/lipase. All questions were answered. Medications Administered Discontinued Medications Generic Name Dose Route Start Last Admin Trade Name Freq PRN Reason Stop Dose Admin Dextrose 25 gm 06/22/23 17:00 06/22/23 17:27 Dextrose 50 % 25 Gm/50 Ml Syringe IVPUSH 06/22/23 17:01 25 gm ONCE ONE Administration Dextrose 25 gm 06/22/23 17:11 06/22/23 17:27 Dextrose 50 % 25 Gm/50 Ml Syringe IVPUSH 06/22/23 17:12 25 gm ONCE ONE Administration Sodium Chloride 1,000 mls @ 999 mls/hr 06/22/23 17:15 06/22/23 20:51 Ns IV 06/22/23 18:15 Infused .Q1H1M DAMIAN Infusion Medical Decision Making Medical Decision Making MDM Narrative: Patient is a 52-year-old male with past medical history of gout, GERD, CKD, hyperparathyroidism, sleep apnea, type 2 diabetes with neuropathy, schizoaffective disorder, chronic pain syndrome who presents to the emergency department by advised him of his PCP for evaluation of pancreatitis. Initially had reported abdominal pain and nausea but denies this to me, he does appear to be a rather poor historian. Outpatient labs obtained yesterday revealing overall unremarkable LFTs, mildly elevated alk-phos consistent with baseline, elevated lipase and amylase at 575/221 respectively. Labs were repeated while in the waiting room today, noted to have a mild leukocytosis, there has been some improvement and amylase/lipase, currently 196/417, noted to have NICOLAS on CKD; BUN/creatinine 42/2.44. At the time my assessment is continuous glucometer began reading hypoglycemia in the 6 days, nursing staff checked a POC which indicated glucose of 61, after which they provided him with orange juice and crackers, this however continued to drop to 50, patient feeling lightheaded and shaky, D50 25 g was administered intravenously in addition to 1 L normal saline IV fluids. He was recently admitted here 06/09/2023 with concern for cholecystitis/ cholelithiasis, was discharged DrLindsey 1 day, clinically did not appear consistent with cholecystitis, advised outpatient follow-up and possible cholecystectomy in the future due to cholelithiasis. He was seen by Dr. Gentile outpatient 06/15/2023, is advised to make dietary changes and follow-up as needed, did not feel as though cholecystectomy was indicated at that time Differential Diagnosis Differential Diagnoses: The differential diagnosis associated with the presentation includes (Pancreatitis, cholecystitis cholelithiasis, CBD stone) Lab Data [facility] Lab Attestation statement: I reviewed the patient's lab results. (See narrative above) 06/22/23 10:55 06/22/23 14:02 Labs: Lab Results 06/22/23 06/22/23 06/22/23 Range/Units 10:55 14:02 15:27 WBC 13.7 H (4.8-10.8) X10*3/uL RBC 5.36 (4.60-5.80) X10*6/uL Hgb 15.5 (14.0-18.0) g/dl Hct 47.6 (42.0-52.0) % MCV 88.8 (80.0-98.0) fL MCH 28.9 (27.0-33.0) pg MCHC 32.6 (31.0-36.0) g/dl RDW 14.8 (11.0-16.0) % Plt Count 239 (160-400) X10*3/uL MPV 13.0 H (9.4-12.4) fL Immature Gran % (Auto) 0.7 H (0.0-0.4) % Neut % (Auto) 69.8 (45-73) % Lymph % (Auto) 19.1 L (20-40) % [place] % (Auto) 6.0 (2-11) % Eos % (Auto) 3.7 (0-4) % Baso % (Auto) 0.7 (0-2) % Lymph # (Auto) 2.6 (1.2-4.9) X10*3/uL [place] # (Auto) 0.8 (0.1-1.2) X10*3/uL Eos # (Auto) 0.5 H (0.0-0.4) X10*3/uL Baso # (Auto) 0.1 (0.0-0.2) X10*3/uL Abs Immat Gran (auto) 0.10 H (0.00-0.03) X10*3/uL Absolute Neuts (auto) 9.6 H (2.0-8.3) x10*3/uL Absolute Nucleated RBC 0.000 (0.0-0.012) X10*3/uL Nucleated RBC % (auto) 0.0 (0.0-0.2) /100WBC Smear Tech's Comments VERIFIED Sodium 139 (135-145) mmol/L Potassium 3.9 (3.3-5.1) mmol/L Chloride 105 (96-108) mmol/L Carbon Dioxide 26 (22-29) mmol/L Anion Gap 12 (12-20) BUN 42 H (9-16) mg/dL Creatinine 2.44 H (0.5-1.4) mg/dL Estim Creat Clear Calc 44.0 Estimated GFR 28 POC Glucose 149 H (60-115) mg/dL Random Glucose 274 H (60-115) mg/dL Calcium 10.2 D (8.4-10.2) mg/dL Total Bilirubin 0.2 (0.0-1.0) mg/dL Direct Bilirubin < 0.2 (0.0-0.5) mg/dL AST 11 (5-37) U/L ALT 19 (0-40) U/L Alkaline Phosphatase 145 H (39-117) U/L Total Protein 6.9 (6.5-8.0) g/dL Albumin 3.3 L (3.5-5.0) g/dL Amylase 196 H (28-100) U/L Lipase 417 H (8-78) U/L Urine Color Urine Appearance Urine pH (5.0-9.0) Ur Specific [place] (1.005-1.025) Urine Protein (Neg-Trace) mg/dL Urine Glucose (UA) (Negative) mg/dL Urine Ketones (Negative) mg/dL Urine Blood (Negative) Urine Nitrite (Negative) Ur Leukocyte Esterase (Negative) Urine RBC (0-2) /HPF Urine WBC (0-5) /HPF Ur Squamous Epith Cells (0-2) /HPF Urine Bacteria (None Seen) Hyaline Casts (0-2) /LPF 06/22/23 06/22/23 06/22/23 Range/Units 16:45 17:06 17:46 WBC (4.8-10.8) X10*3/uL RBC (4.60-5.80) X10*6/uL Hgb (14.0-18.0) g/dl Hct (42.0-52.0) % MCV (80.0-98.0) fL MCH (27.0-33.0) pg MCHC (31.0-36.0) g/dl RDW (11.0-16.0) % Plt Count (160-400) X10*3/uL MPV (9.4-12.4) fL Immature Gran % (Auto) (0.0-0.4) % Neut % (Auto) (45-73) % Lymph % (Auto) (20-40) % [place] % (Auto) (2-11) % Eos % (Auto) (0-4) % Baso % (Auto) (0-2) % Lymph # (Auto) (1.2-4.9) X10*3/uL [place] # (Auto) (0.1-1.2) X10*3/uL Eos # (Auto) (0.0-0.4) X10*3/uL Baso # (Auto) (0.0-0.2) X10*3/uL Abs Immat Gran (auto) (0.00-0.03) X10*3/uL Absolute Neuts (auto) (2.0-8.3) x10*3/uL Absolute Nucleated RBC (0.0-0.012) X10*3/uL Nucleated RBC % (auto) (0.0-0.2) /100WBC Smear Tech's Comments Sodium (135-145) mmol/L Potassium (3.3-5.1) mmol/L Chloride (96-108) mmol/L Carbon Dioxide (22-29) mmol/L Anion Gap (12-20) BUN (9-16) mg/dL Creatinine (0.5-1.4) mg/dL Estim Creat Clear Calc Estimated GFR POC Glucose 61 50 L* 274 H (60-115) mg/dL Random Glucose (60-115) mg/dL Calcium (8.4-10.2) mg/dL Total Bilirubin (0.0-1.0) mg/dL Direct Bilirubin (0.0-0.5) mg/dL AST (5-37) U/L ALT (0-40) U/L Alkaline Phosphatase (39-117) U/L Total Protein (6.5-8.0) g/dL Albumin (3.5-5.0) g/dL Amylase (28-100) U/L Lipase (8-78) U/L Urine Color Urine Appearance Urine pH (5.0-9.0) Ur Specific [place] (1.005-1.025) Urine Protein (Neg-Trace) mg/dL Urine Glucose (UA) (Negative) mg/dL Urine Ketones (Negative) mg/dL Urine Blood (Negative) Urine Nitrite (Negative) Ur Leukocyte Esterase (Negative) Urine RBC (0-2) /HPF Urine WBC (0-5) /HPF Ur Squamous Epith Cells (0-2) /HPF Urine Bacteria (None Seen) Hyaline Casts (0-2) /LPF 06/22/23 06/22/23 Range/Units 19:11 19:56 WBC (4.8-10.8) X10*3/uL RBC (4.60-5.80) X10*6/uL Hgb (14.0-18.0) g/dl Hct (42.0-52.0) % MCV (80.0-98.0) fL MCH (27.0-33.0) pg MCHC (31.0-36.0) g/dl RDW (11.0-16.0) % Plt Count (160-400) X10*3/uL MPV (9.4-12.4) fL Immature Gran % (Auto) (0.0-0.4) % Neut % (Auto) (45-73) % Lymph % (Auto) (20-40) % [place] % (Auto) (2-11) % Eos % (Auto) (0-4) % Baso % (Auto) (0-2) % Lymph # (Auto) (1.2-4.9) X10*3/uL [place] # (Auto) (0.1-1.2) X10*3/uL Eos # (Auto) (0.0-0.4) X10*3/uL Baso # (Auto) (0.0-0.2) X10*3/uL Abs Immat Gran (auto) (0.00-0.03) X10*3/uL Absolute Neuts (auto) (2.0-8.3) x10*3/uL Absolute Nucleated RBC (0.0-0.012) X10*3/uL Nucleated RBC % (auto) (0.0-0.2) /100WBC Smear Tech's Comments Sodium (135-145) mmol/L Potassium (3.3-5.1) mmol/L Chloride (96-108) mmol/L Carbon Dioxide (22-29) mmol/L Anion Gap (12-20) BUN (9-16) mg/dL Creatinine (0.5-1.4) mg/dL Estim Creat Clear Calc Estimated GFR POC Glucose 141 H (60-115) mg/dL Random Glucose (60-115) mg/dL Calcium (8.4-10.2) mg/dL Total Bilirubin (0.0-1.0) mg/dL Direct Bilirubin (0.0-0.5) mg/dL AST (5-37) U/L ALT (0-40) U/L Alkaline Phosphatase (39-117) U/L Total Protein (6.5-8.0) g/dL Albumin (3.5-5.0) g/dL Amylase (28-100) U/L Lipase (8-78) U/L Urine Color Yellow Urine Appearance Clear Urine pH 6.0 (5.0-9.0) Ur Specific [place] 1.025 (1.005-1.025) Urine Protein >=1000 (4+) H (Neg-Trace) mg/dL Urine Glucose (UA) >=1000 H (Negative) mg/dL Urine Ketones Negative (Negative) mg/dL Urine Blood Trace H (Negative) Urine Nitrite Negative (Negative) Ur Leukocyte Esterase Negative (Negative) Urine RBC 0-2 (0-2) /HPF Urine WBC 0-5 (0-5) /HPF Ur Squamous Epith Cells 0-2 (0-2) /HPF Urine Bacteria None Seen (None Seen) Hyaline Casts 3-5 (0-2) /LPF Independent Interpretation I performed an independent interpretation of an: Ultrasound (Cholelithiasis, agree with radiologist impression) Radiology Impression Discussion of test interpretation with radiology: I have reviewed the radiologist's reading. Radiologist Impression: CT/CT abdomen pelvis wo IV con IMPRESSION: 1. No evidence of pancreatitis as clinically queried. 2. Wall thickening of the urinary bladder which may reflect under distention versus cystitis. Correlate with urinalysis. US/US abdomen limited IMPRESSION: Cholelithiasis with mild gallbladder wall thickening. Independent Historian Clinical information obtained from an independent historian. History obtained from or confirmed by: Spouse ( present who confirms history) External Record Review External record reviewed: Inpatient record and Outpatient record Critical Care Time Critical Care Time Critical Care Time: Yes Total Critical Care Time: 45 Attestation: I personally attest to this critical care time spent taking care of the patient exclusive of all other billable procedures was approximately 45 minutes including initial evaluation of patient, ordering tests, CT interpretation, EKG interpretation, medical consultation, documentation, re-evaluation. Discharge Plan Discharge Clinical Impression: Abdominal pain, Elevated lipase, Acute kidney injury superimposed on chronic kidney disease Patient Disposition: Home, Self-Care Instructions: Abdominal Pain (ED) Additional Instructions: Follow-up with your primary care provider, contact the GI doctor's office to arrange for follow-up visit regarding your elevated lipase/amylase levels. You may return back to the emergency department with any new or worsening symptoms or concerns. Prescriptions: No Action ziprasidone HCl [Geodon] 80 mg capsule 80 mg PO BEDTIME atorvastatin 80 mg tablet 80 mg PO DAILY albuterol sulfate 2.5 mg /3 mL (0.083 %) solution for nebulization 2.5 mg inhalation Q6H PRN (Reason: wheezing) clonazepam 0.5 mg tablet 0.5 mg PO TID amlodipine 2.5 mg tablet 2.5 mg PO QAM tramadol 50 mg tablet 50 mg PO Q8H PRN (Reason: severe pain) acetaminophen 500 mg tablet 1,000 mg PO Q6H PRN (Reason: fever) divalproex [Depakote ER] 500 mg tablet extended release 24 hr 1,000 mg PO BEDTIME lidocaine 5 % adhesive patch,medicated 1 patch topical DAILY PRN (Reason: Pain) calcium carbonate [Calcium Antacid] 200 mg calcium (500 mg) tablet,chewable 400 mg PO QAM ezetimibe 10 mg tablet 10 mg PO QAM carboxymethylcellulose sodium [Lubricant Eye Drops] 0.5 % dropperette 1 drp ophthalmic (eye) NEEDED cholecalciferol (vitamin D3) 50 mcg (2,000 unit) tablet 50 mcg PO QAM Spiriva Respimat 1.25 mcg/actuation mist 2 puff INHALATION QAM omega 8-phv-aem-fish oil 300 mg (120 mg- 180mg)-1,000 mg capsule 1 cap PO BID aspirin 81 mg tablet,chewable 1 tab PO QAM gabapentin 600 mg tablet 600 mg PO BID Humulin R U-500 (Conc) Kwikpen 500 unit/mL (3 mL) insulin pen 140 unit subcut DAILY@1730 Rx Instructions: hold if BS < 100 Humulin R U-500 (Conc) Kwikpen 500 unit/mL (3 mL) insulin pen 135 unit subcut DAILY@0730 Rx Instructions: hold if BS < 100 gabapentin 800 mg tablet 800 mg PO DAILY losartan 50 mg tablet 100 mg PO DAILY Trulicity 4.5 mg/0.5 mL pen injector 4.5 mg subcut QWEEK trazodone 150 mg tablet 150 mg PO BEDTIME PRN (Reason: Sleep) Humulin R U-500 (Conc) Insulin 500 unit/mL solution 140 unit subcut DAILY@1200 Rx Instructions: hold if BS < 100 pantoprazole 40 mg tablet,delayed release (DR/EC) 40 mg PO DAILY furosemide 80 mg tablet 80 mg PO BID empagliflozin 25 mg tablet 25 mg PO DAILY carvedilol 25 mg tablet 25 mg PO BID Rx Instructions: must administer with a meal/food allopurinol 100 mg tablet 50 mg PO DAILY (DME) Dexcom G7 Slip Maker Misc See Rx Instructions .Route Rx Instructions: As directed doxycycline hyclate 100 mg tablet 100 mg PO BID Qty: 14 0RF Referrals: Ezekiel Key MD [Physician] - Katrin Santoyo MD [Primary Care Provider] - Interventions: ED Discharge Assessment Last Done: 06/22/23 21:28 Discharge Date/Time: 06/22/23 21:29
[2023-06-22 14:24] LABS: Alanine Aminotransferase 19 U/L (0-40); Albumin Level 3.3 g/dL (3.5-5.0); Alkaline Phosphatase 145 U/L (39-117); Anion Gap 12 (12-20); Aspartate Amino Transferase 11 U/L (5-37); Bilirubin Direct < 0.2 mg/dL (0.0-0.5); Bilirubin Total 0.2 mg/dL (0.0-1.0); Blood Urea Nitrogen 42 mg/dL (9-16); Calcium 10.2 mg/dL (8.4-10.2); Carbon Dioxide 26 mmol/L (22-29); Chloride 105 mmol/L (96-108); Estimated Glomerular Filt Rate 28; Glucose Random 274 mg/dL (60-115); Potassium 3.9 mmol/L (3.3-5.1); Sodium 139 mmol/L (135-145); Total Protein 6.9 g/dL (6.5-8.0)
[2023-06-22 14:42] LABS: Lipase 417 U/L (8-78)
[2023-06-22 15:13] LABS: Amylase 196 U/L (28-100)
[2023-06-22 15:31] LABS: Glucose, Whole Blood 149 mg/dL (60-115)
--- OUTSIDE RECORDS SUMMARY | 2023-06-22 15:52 | XMS_ITS | Continuity of Care Document ---
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 Role Phone José López MD, Katrin Ladd Primary Care Jeffrey naik Encounter [facility] [place] Date(s): 02/10/23 - 06/09/23 [facility] [address] [place] [id number] Attending Physician: Celina Hayes MD Admitting Physician: Celina Hayes MD Referring Physician: Katrin Santoyo MD Allergies, Adverse Reactions, Alerts Substance Reaction [...] 1 Refills, Maintenance, 08/25/22 18:29:00 EDT, [facility]ol, [facility] [...] EDT, Route to Pharmacy Electronically, [facility] Partial fill upon patientrequest if the prescription is for a schedule II op... Start Date: 08/25/22 Status: Ordered aspirin 81 mg oral delayed release tablet 81 mg, 1, tablet, By Mouth, Daily, # 90 tablet, Refills 1, Tot. Refills 1, Maintenance, 08/25/22 18:25:00 EDT, Route to Pharmacy Electronically, [facility]., Partial fill upon patient request if the prescription is for a schedule II opi... Start Date: 08/25/22 Status: Ordered atorvastatin 80 mg oral tablet 1 tablet = 80 mg, By Mouth, Daily, # 90 tablet, 1 Refills, Maintenance, 08/25/22 18:25:00 EDT, Tablet, [facility] Partial fill upon patient request if the [...] 08/25/22 18:25:00 EDT, Route to Pharmacy Electronically, [facility], Partial fill upon patient request if [...] 0, Tot. 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 e11.9, 09/14/22 10:15:00 EDT, Compound, 176, cm, 09/14/22 9:47:00 EDT, Height Start Date: 09/14/22 Status: Ordered Dexcom G7 Sensor Dexcom G7 Sensor, See Instructions, # 10 each, Refills 3, Tot. Refills 3, Maintenance, Apply DexcomG7 sensor Every 10 days. e11.9, 12/13/22 11:18:00 EDT, Supply, 176, cm, 10/31/22 13:11:00 EDT, Height Start Date: 12/13/22 Status: Ordered diclofenac 1% topical gel 1 application, Topically, 4 times a day, # 100 Gm, 0 Refills, Maintenance, 08/09/22 13:22:00 EDT, Gel, Partial fill upon patient request if the prescription is for a schedule II opioid drug. Start Date: 08/09/22 Status: Ordered empagliflozin 25 mg oral tablet 1 tablet = 25 mg, By Mouth, Daily in AM, # 90 tablet, 8 Refills, Maintenance, 12/13/22 12:20:00 EDT, Tablet, [facility], Partial fill upon patient request if the prescription is for a schedule II opioid drug., 176, cm, 10/31/22 13:... Start Date: 12/13/22 Status: Ordered ergocalciferol 54152 iu oral capsule 50,000 International_Units, 1, capsule, By Mouth, Every week, # 13 capsule, Refills 0, Tot. Refills0, Maintenance, 09/22/22 9:24:00 EDT, Route to Pharmacy Electronically, [facility],Partial fill upon patient request if the prescripti... Start Date: 09/22/22 Stop Date: 12/21/22 Status: Ordered Eucerin Plus topical lotion 1 application, Topically, 2 times a day, PRN for dry skin, # 180 mL, 0 Refills, Maintenance, 08/26/22 17:33:00 EDT, Lotion, [facility], Partial fill upon patient request if the prescription is for a schedule II opioid drug., 1 applicat... Start Date: 08/26/22 Status: Ordered fluticasone 50 mcg/inh nasal spray 2 sprays = 100 mcg, Nares, Both, Daily in AM, # 16 Gm, 3 Refills, Maintenance, 08/25/22 18:32:00 EDT, Nasal [place], [facility], Partial fill upon patient request if [...] 08/26/22 16:04:00 EDT, Route to Pharmacy Electronically, [facility], 176, cm, 08/17/22 14:18:00 EDT, Height Start Date: 08/26/22 Stop Date: 09/25/22 Status: Ordered gabapentin 800 mg oral tablet 2 tablet = 1,600 mg, By Mouth, 2 times a day, # 90 tablet, 0 Refills, Maintenance, 08/09/22 13:17:00 EDT, Tablet, Partial fill upon patient request if the prescription is for a schedule II opioid drug. Start Date: 08/09/22 Status: Ordered HumuLIN R KwikPen (Concentrated) human recombinant 500 units/mL subcutaneous solution See Instructions, Give 3 times daily 30 minutes before breakfast, lunch, dinner. MDD: 450 units e 11.65, # 30 mL, 5 Refills, Maintenance, 05/27/23 8:16:00 EST, [facility], [facility], 176, cm, 05/25/23 15:45:00 EST, Height Start Date: 05/27/23 Status: Ordered lidocaine 5% topical film 1 [...] 08/09/22 11:45:00 EDT, Route to Pharmacy Electronically, [facility], Partial fill upon patient request if the prescription is for a schedule II opi... Start Date: 08/09/22 Status: Ordered losartan 50 mg oral tablet 1 tablet = 50 mg, By Mouth, Daily, # 90 tablet, 1 Refills, Maintenance, 10/17/22 16:21:00 EDT, [facility] 176, cm, 09/19/22 13:07:00 EDT, Height Start Date: 10/17/22 Stop Date: 04/15/23 Status: Ordered pantoprazole 40 mg oral delayed release tablet 1 tablet = 40 mg, By Mouth, Daily, # 7 tablet, 0 Refills, Maintenance, 08/26/22 14:59:00 EDT, EC Tablet, 176, cm, 08/17/22 14:18:00 EDT, Height Start Date: 08/26/22 Stop Date: 09/02/22 Status: Ordered Pen [place], 31 G x 5 mm BD Ultra Fine III See Instructions, # 112 each, Refills 8, Tot. Refills 8, Maintenance, use to inject insulin up to 4x day e11.65, 12/14/22 10:56:00 EDT, Supply, 176, cm, 10/31/22 13:11:00 EDT, Height Start Date: 12/14/22 Status: Ordered Spiriva Respimat 1.25 mcg/inh inhalation aerosol 2 puffs = 2.5 mcg, Inhalation, Daily, # 3 each, 1 Refills, Maintenance, 08/25/22 18:29:00 EDT, Aerosol, [facility] Partial fill upon patient request if the prescription is for a schedule II opioid drug., 176, cm, 08/17/22 14:18:00 EDT... Start Date: 08/25/22 Status: Ordered traZODone 150 mg oral tablet 1 tablet = 150 mg, By Mouth, Daily at bedtime, # 90 tablet, 0 Refills, Maintenance, 08/09/22 13:00:00 EDT, Tablet, [facility] Partial fill upon patient request if the prescription isfor a schedule II opioid drug., 176, cm, 08/04/22 1... Start Date: 08/09/22 Status: Ordered Triamcinolone 0.1% Dental By Mouth, 0 Refills, Maintenance Start Date: 08/09/22 Status: Ordered Ventolin HFA 108 mcg/inh inhalation aerosol with adapter 2 puffs = 180 mcg, Inhalation, Every 4 hours, PRN Wheezing/Shortness of Breath, # 18 Gm, 0 Refills,Maintenance, 08/25/22 18:29:00 EDT, Inhaler, [facility] Partial fill upon patient request if the prescription is for a schedule II opi... Start Date: 08/25/22 Status: Ordered ziprasidone 40 mg oral capsule 1 capsule = 40 mg, By Mouth, Daily in AM, # 90 each, 0 Refills, Maintenance, 08/09/22 13:01:00 EDT,Capsule, [facility]., Partial fill upon patient request if the prescription is for aschedule II opioid drug., 176, cm, 08/04/22 16:02:0... Start Date: 08/09/22 Status: Ordered ziprasidone 80 mg oral capsule 1 capsule = 80 mg, By Mouth, Daily at supper, # 90 each, 0 Refills, Maintenance, 08/09/22 13:01:00 EDT, [facility]., Partial fill upon patient request if the [...] and pathology of colonospcy [facility] 09-09-2020 note 3per note - CT at outside location 4Completed a colonoscopy 2020 and had a cecum polyp. Biopsy tubular adenoma. repeat colonoscopy 7 years Social History Social History Type Response Smoking Status Never smoker entered on: 03/12/18 Sex Patient Care team information Care Team Personnel Name: José López MD, Katrin Ladd Position: [facility] Outreach Member Role: PCP Address: Address: [address] [place] [address]- Care Team Related Persons Name: MARILU BOYD Address: [place] [address]
--- OUTSIDE RECORDS SUMMARY | 2023-06-22 15:53 | XMS_ITS | Continuity of Care Document ---
Author Name Unknown Organization [facility] Address [address] [place] [id number]- Care Team Providers Care Director Medical Writing Name Role Phone José López MD, Katrin Ladd Primary Care Jeffrey naik [id number] Date[facility] - 06/10/23 [facility] [address] [place] [id number]- Attending Physician: Antoine Mclaughlin MD Admitting Physician: Antoine Mclaughlin MD Referring Physician: Katrin Santoyo MD Allergies, [...] Refills, Maintenance, 08/25/22 18:29:00 EDT, [facility]ol[facility] [...] 08/25/22 18:25:00 EDT, Route to Pharmacy Electronically, [facility], Partial fill upon patientrequest if the prescription is for a schedule II op... Start Date: 08/25/22 Status: Ordered aspirin 81 mg oral delayed release tablet 81 mg, 1, tablet, By Mouth, Daily, # 90 tablet, Refills 1, Tot. Refills 1, Maintenance, 08/25/22 18:25:00 EDT, Route to Pharmacy Electronically, [facility], Partial fill upon patient request if the prescription is for a schedule II opi... Start Date: 08/25/22 Status: Ordered atorvastatin 80 mg oral tablet 1 tablet = 80 mg, By Mouth, Daily, # 90 tablet, 1 Refills, Maintenance, 08/25/22 18:25:00 EDT, Tablet, [facility], Partial fill upon patient request if [...] 08/25/22 18:25:00 EDT, Route to Pharmacy Electronically, [facility], Partial fill upon patient request if [...] 0, Tot. 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 e11.9, 09/14/22 10:15:00 EDT, [...] 8 Refills, Maintenance, 12/13/22 12:20:00 EDT, Tablet, [facility], Partial fill upon patient request if the prescription is for a schedule II opioid drug., 176, cm, 10/31/22 13:... Start Date: 12/13/22 Status: Ordered ergocalciferol 55129 iu oral capsule 50,000 International_Units, 1, capsule, By Mouth, Every week, # 13 capsule, Refills 0, Tot. Refills0, Maintenance, 09/22/22 9:24:00 EDT, Route to Pharmacy Electronically, [facility],Partial fill upon patient request if the prescripti... Start Date: 09/22/22 Stop Date: 12/21/22 Status: Ordered Eucerin Plus topical lotion 1 application, Topically, 2 times a day, PRN for dry skin, # 180 mL, 0 Refills, Maintenance, 08/26/22 17:33:00 EDT, Lotion, [facility]., Partial fill upon patient request if the prescription is for a schedule II opioid drug., 1 applicat... Start Date: 08/26/22 Status: Ordered fluticasone 50 mcg/inh nasal spray 2 sprays = 100 mcg, Nares, Both, Daily in AM, # 16 Gm, 3 Refills, Maintenance, 08/25/22 18:32:00 EDT, Nasal [place], [facility]., Partial fill upon patient request if [...] 08/26/22 16:04:00 EDT, Route to Pharmacy Electronically, [facility]., 176, cm, 08/17/22 14:18:00 EDT, Height [...] mL, 5 Refills, Maintenance, 05/27/23 8:16:00 EST, [facility], [place], 176, cm, 05/25/23 15:45:00 EST, Height Start [...] 08/09/22 11:45:00 EDT, Route to Pharmacy Electronically, [facility], Partial fill upon patient request if the prescription is for a schedule II opi... Start Date: 08/09/22 Status: Ordered losartan 50 mg oral tablet 1 tablet = 50 mg, By Mouth, Daily, # 90 tablet, 1 Refills, Maintenance, 10/17/22 16:21:00 EDT, [facility], 176, cm, 09/19/22 13:07:00 EDT, Height Start Date: 10/17/22 Stop Date: 04/15/23 Status: Ordered pantoprazole 40 mg oral delayed release tablet 1 tablet = 40 mg, By Mouth, Daily, # 7 tablet, 0 Refills, Maintenance, 08/26/22 14:59:00 EDT, EC Tablet, 176, cm, 08/17/22 14:18:00 EDT, Height Start Date: 08/26/22 Stop Date: 09/02/22 Status: Ordered Pen Dexter, 31 G x 5 mm BD Ultra Fine III See Instructions, # 112 each, Refills 8, Tot. Refills 8, Maintenance, use to inject insulin up to 4x day e11.65, 12/14/22 10:56:00 EDT, Supply, 176, saqib, 10/31/22 13:11:00 EDT, Height Start Date: 12/14/22 Status: Ordered Spiriva Respimat 1.25 mcg/inh inhalation aerosol 2 puffs = 2.5 mcg, Inhalation, Daily, # 3 each, 1 Refills, Maintenance, 08/25/22 18:29:00 EDT, Aerosol, [facility] Partial fill upon patient request if the prescription is for a schedule II opioid drug., 176, [place], 08/17/22 14:18:00 EDT... Start Date: 08/25/22 Status: Ordered traZODone 150 mg oral tablet 1 tablet = 150 mg, By Mouth, Daily at bedtime, # 90 tablet, 0 Refills, Maintenance, 08/09/22 13:00:00 EDT, Tablet, [facility] Partial fill upon patient request if the prescription isfor a schedule II opioid drug., 176, saq[place], 08/04/22 1... Start Date: 08/09/22 Status: Ordered Triamcinolone 0.1% Dental By Mouth, 0 Refills, Maintenance Start Date: 08/09/22 Status: Ordered Ventolin HFA 108 mcg/inh inhalation aerosol with adapter 2 puffs = 180 mcg, Inhalation, Every 4 hours, PRN Wheezing/Shortness of Breath, # 18 Gm, 0 Refills,Maintenance, 08/25/22 18:29:00 EDT, Inhaler, [facility] fill upon patient request if the prescription is for a schedule II opi... Start Date: 08/25/22 Status: Ordered ziprasidone 40 mg oral capsule 1 capsule = 40 mg, By Mouth, Daily in AM, # 90 each, 0 Refills, Maintenance, 08/09/22 13:01:00 EDT,Capsule, [facility] Partial fill upon patient request if the prescription is for aschedule II opioid drug., 176, cm, 08/04/22 16:02:0... Start Date: 08/09/22 Status: Ordered ziprasidone 80 mg oral capsule 1 capsule = 80 mg, By Mouth, Daily at supper, # 90 each, 0 Refills, Maintenance, 08/09/22 13:01:00 EDT, [facility], Partial fill upon patient request if [...] 2016 2information and pathology of [facility]ospcy [facility] 09-09-2020 note 3per note - CT at outside location 4Completed a colonoscopy 2020 and had a cecum polyp. Biopsy tubular adenoma. repeat colonoscopy 7 years Social History Social History Type Response Smoking Status Never smoker entered on: 03/12/18 Sex Patient Care team information Care Team Personnel Name: José López MD, Katrin Ladd Position: [facility] Outreach Member Role: PCP Address: Address: [address] [place] [id number]- Care Team Related Persons Name: MARILU BOYD Address: [place] [address]
[2023-06-22 16:49] LABS: Glucose, Whole Blood 61 mg/dL (60-115)
[2023-06-22 17:13] LABS: Glucose, Whole Blood 50 mg/dL (60-115)
[2023-06-22] MEDS: Dextrose 50 % 25 GM/50 ML SYRINGE IVPUSH ×2 (17:27)
[2023-06-22] MEDS: 0.9 % Sodium Chloride 1,000 ML 999 ML IV (17:41)
--- NOTE | 2023-06-22 17:53 | PC.NURSE ---
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 sat to 78% briefly, pt hx REGI per family. placed on 3L NC. sat adequate. pt rmained lethargic and diff to arouse- md mckinney came to bedside, sternal rub-responded, pt awoke and able to talk.
--- NOTE | 2023-06-22 17:55 | PC.NURSE ---
poc 200's. pt VS stable. no resp distress.
[2023-06-22 19:26] LABS: Glucose, Whole Blood 274 mg/dL (60-115)
[2023-06-22 19:26] LABS: Glucose, Whole Blood 141 mg/dL (60-115)
[2023-06-22 20:09] LABS: Appearance Urine Clear; Color Urine Yellow; Glucose Urine UA >=1000 mg/dL (Negative); Leukocyte Esterase Urine Negative (Negative); Nitrite Urine Negative (Negative); Specific Gravity - Urine 1.025 (1.005-1.025); UMIC TRIGGER UACC YES; Urine Blood Trace (Negative); Urine Ketones Negative (Negative); Urine Protein >=1000 (4+) mg/dL (Neg-Trace)
[2023-06-22 20:11] LABS: Bacteria Urine None Seen (None Seen); RBC Urine 0-2 /HPF (0-2); Squamous Epithelial Cell Urine 0-2 /HPF (0-2); WBC Urine 0-5 /HPF (0-5)
== END 2023-06-22 21:29 | disposition home or self-care (01) ==
PROVIDERS: Registered Nurse Emergency; Emergency Provider Internal Medicine; PCP Student in an Organized Health Care Education/Training Program
DX: R10.10 Upper abdominal pain, unspecified (principal); R74.8 Abnormal levels of other serum enzymes; E11.22 Type 2 diabetes mellitus with diabetic chronic kidney disease; I12.9 Hypertensive chronic kidney disease with stage 1 through stage 4 chronic kidney disease, or unspecified chronic kidney disease; N18.9 Chronic kidney disease, unspecified; N17.9 Acute kidney failure, unspecified; G89.4 Chronic pain syndrome; Z79.4 Long term (current) use of insulin; Z79.82 Long term (current) use of aspirin; Z79.85 Long-term (current) use of injectable non-insulin antidiabetic drugs; Z79.899 Other long term (current) drug therapy
CPT/HCPCS: 36415; 74176; 76705; 80048; 80076; 81001; 82150; 82947; 83690; 85025; 96361; 96374; 99284

== ENCOUNTER 2023-07-04 12:55 | Outpatient (REF) | payer MEDICAID, SELFPAY ==
--- NOTE | ~2023-07-04 | US_ITS ---
EXAMINATION: US LOWER EXTREMITY VENOUS (REFLUX EXAM), BILATERAL CLINICAL INDICATION: Chronic venous insufficiency with lower extremity varicose veins and inflammation COMPARISON: None. TECHNIQUE: Color flow triplex imaging and compression Doppler was performed to evaluate both the deep and the superficial systems bilaterally. To evaluate the superficial system, the examination was performed in the upright position. Color-flow Doppler ultrasound and compression ultrasound were utilized. In addition, maneuvers were utilized to demonstrate reflux. FINDINGS: 1. DEEP VENOUS ULTRASOUND OF THE RIGHT LOWER EXTREMITY: Common Femoral Vein: Compressible, normal respiratory variation and augmented flow. Femoral Vein: Compressible, normal color flow and augmentation. Popliteal Vein: Compressible, normal augmentation. Deep Reflux: There is no evidence of reflux in the deep system in either the common femoral vein, superficial femoral or the popliteal vein. There is no evidence of a Conway's cyst. 2. SUPERFICIAL ULTRASOUND WITH DOPPLER OF RIGHT LOWER EXTREMITY: GREAT SAPHENOUS VEIN: Saphenofemoral Junction: 0.4 cm; Reflux: 0 ms Proximal Thigh: 0.4 cm; Reflux: 0 ms Mid Thigh: 0.2 cm; Reflux: 0 ms Above Knee: 0.2 cm; Reflux: 0 ms At Knee: 0.2 cm; Reflux: 0 ms Below Knee: 0.2 cm; Reflux: 0 ms Mid Calf: 0.2 cm; Reflux: 0 ms Ankle: 0.2 cm; Reflux: 0 ms DUPLICATED MEDIAL GREAT SAPHENOUS VEIN: Diameter: None imaged Reflux: NA DUPLICATED LATERAL GREAT SAPHENOUS VEIN: Diameter: 0.2 cm Reflux: None SMALL SAPHENOUS VEIN: Saphenopopliteal Junction: 0.3 cm; Reflux: 0 ms Proximal: 0.2 cm; Reflux: 0 ms. Mid segment is duplicated with separate vessel measuring 0.1 cm Distal: 0.3 cm; Reflux: 0 ms VEIN OF GIACOMINI: Size: NA Reflux: NA PERFORATORS: Location: Distal calf Size: 0.3 cm Reflux: None VARICOSITIES: Location: None significant Size: NA Reflux: NA 3. DEEP VENOUS ULTRASOUND OF THE LEFT LOWER EXTREMITY: Common Femoral Vein: Compressible, normal respiratory variation and augmented flow. Femoral Vein: Compressible, normal color flow and augmentation. Popliteal Vein: Compressible, normal augmentation. Deep Reflux: There is no evidence of reflux in the deep system in either the common femoral vein, superficial femoral or the popliteal vein. There is no evidence of a Conway's cyst. 4. SUPERFICIAL ULTRASOUND WITH DOPPLER OF LEFT LOWER EXTREMITY: GREAT SAPHENOUS VEIN: Saphenofemoral Junction: 0.4 cm; Reflux: 0 ms Proximal Thigh: 0.3 cm; Reflux: 0 ms Mid Thigh: 0.3 cm; Reflux: 0 ms Above Knee: 0.2 cm; Reflux: 0 ms At Knee: 0.3 cm; Reflux: 0 ms Below Knee: 0.2 cm; Reflux: 0 ms Mid Calf: 0.2 cm; Reflux: 0 ms Ankle: 0.2 cm; Reflux: 2600 ms DUPLICATED MEDIAL GREAT SAPHENOUS VEIN: Diameter: None imaged Reflux: NA DUPLICATED LATERAL GREAT SAPHENOUS VEIN: Diameter: 0.2 cm Reflux: None SMALL SAPHENOUS VEIN: Saphenopopliteal Junction: 0.4 cm; Reflux: 0 ms Proximal: 0.2 cm; Reflux: 0 ms Distal: 0.3 cm; Reflux: 0 ms VEIN OF GIACOMINI: Size: NA Reflux: NA PERFORATORS: Location: Distal calf Size: 0.2 cm Reflux: None VARICOSITIES: Location: Distal calf Size: 0.2 cm Reflux: None US/US venous duplex LE BI IMPRESSION: Right: No significant reflux in the right great saphenous vein or small saphenous vein Left: Focal segmental reflux in the distal great saphenous vein is at the ankle. There is a small associated vein in the distal calf without significant reflux
== END 2023-07-04 12:56 | disposition home or self-care (01) ==
LOC: HO.US 12:55
PROVIDERS: PCP Student in an Organized Health Care Education/Training Program; Visit Provider Surgery Vascular Surgery
DX: I83.12 Varicose veins of left lower extremity with inflammation (principal)
CPT/HCPCS: 93970

== ENCOUNTER 2023-07-10 08:47 | Outpatient (REF) | payer MEDICAID, SELFPAY ==
--- NOTE | ~2023-07-10 | US_ITS ---
EXAMINATION: US ABDOMEN COMPLETE CLINICAL INFORMATION: Cholecystitis, elevated amylase. COMPARISON: Ultrasound abdomen limited 06/22/2023. CT abdomen and pelvis 06/22/2023. Ultrasound abdomen limited 06/08/2023. TECHNIQUE: Real-time imaging of the abdominal viscera. Limited visualization due to bowel gas. FINDINGS: PANCREAS: Poorly visualized due to bowel gas. ABDOMINAL AORTA: Limited visualization due to bowel gas. Imaged portion of the proximal abdominal aorta is nonaneurysmal. INFERIOR VENA CAVA: Poorly visualized. LIVER: Increased hepatic parenchymal heterogeneity and echogenicity could be associated with hepatocellular disease/hepatic steatosis and substantially limits visualization. Correlation with liver function tests and clinical exam recommended to determine further management. Hypoechoic areas within the liver adjacent to the gallbladder may represent areas of focal sparing within a fatty liver. GALLBLADDER: Gallbladder is suboptimally distended, limiting evaluation. Gallbladder wall thickening of 4 mm. A 1.0 x 0.8 x 1.0 cm nonmobile gallstone is present. COMMON BILE DUCT: Normal in caliber measuring 0.5 cm in diameter. RIGHT KIDNEY: No hydronephrosis. No renal calculi. Limited visualization. The kidney measures 13.5 cm in maximum dimension. LEFT KIDNEY: No hydronephrosis. No renal calculi. Limited visualization. The kidney measures 13.6 cm in maximum dimension. SPLEEN: Normal. The spleen measures 10.4 cm in maximum dimension. FREE FLUID: None. US/US abdomen complete IMPRESSION: 1. Increased hepatic parenchymal heterogeneity and echogenicity could be associated with hepatocellular disease/hepatic steatosis and substantially limits visualization. Correlation with liver function tests and clinical exam recommended to determine further management. Hypoechoic areas within the liver adjacent to the gallbladder may represent areas of focal sparing within a fatty liver. 2. Gallbladder is suboptimally distended, limiting evaluation. Gallbladder wall thickening of 4 mm. A 1.0 x 0.8 x 1.0 cm nonmobile gallstone is present. 3. Pancreas is poorly visualized.
== END 2023-07-10 08:48 | disposition home or self-care (01) ==
LOC: HO.US 08:47
PROVIDERS: PCP Student in an Organized Health Care Education/Training Program; Visit Provider Internal Medicine
DX: K80.71 Calculus of gallbladder and bile duct without cholecystitis with obstruction (principal); R74.8 Abnormal levels of other serum enzymes; M10.9 Gout, unspecified; E66.01 Morbid (severe) obesity due to excess calories; E11.42 Type 2 diabetes mellitus with diabetic polyneuropathy; G89.4 Chronic pain syndrome
CPT/HCPCS: 76700; 99212

== ENCOUNTER 2023-07-10 10:37 | Outpatient (AMB) | payer MEDICAID, SELFPAY ==
--- NOTE | 2023-07-10 10:57 | MHC.OFFVIS ---
Intake Vital Signs 07/10/23 11:04 Height 5 ft 8 in Weight 242 lb 2 oz BMI 36.8 BP 114/72 Blood Pressure Location Lt brachial Position Sitting Respiration 17 Pulse 100 Pulse Source Pulse Oximeter Pulse Oximetry (%) 96 Oxygen Delivery Method Room Air Intake Visit Reasons: New Pain, not specified/ confirm Intake Note: Patient comes in for left leg pain. Reports pain 10. Allergies penicillin V Allergy (Mild, Verified 07/10/23 11:03) Rash Penicillins [PENICILLINS] Allergy (Unknown, Verified 07/10/23 11:03) RASH, DIFFICULTY BREATHING HPI HPI Comments History of Present Illness Details Darrel is back in my office with complains on intractable pain in bilateral feet more in the left foot and less on the right. He complains now on pain in left foot spreading on the dorsal surface of the foot and into the ankle and lower leg on the lateral side. There is no signs of venous or arterial insufficiency dorsalis pedis pulse is strong. I offered him Qutensa treatment for bilateral feet, as of the pain on the dorsal foot and ankle he needs to attend education manager. His blood sugar is getting better as he stated today therefore the might be able to do some procedures which they previously were not able to do because of his hyperglycemia. Prior: complains on mostly bilateral feet pain. He reports pain in bilateral feet symmetrical and burning sensation pins and needles. Reports that his pain is related to diabetic neuropathy. He also reports widespread arthritis. [facility] Medical History Leukocytosis Memory loss Obesity Idiopathic gout of multiple sites GERD (gastroesophageal reflux disease) Hypertensive chronic kidney disease Secondary hyperparathyroidism, renal Chronic kidney disease Sleep apnea Type 2 diabetes mellitus Schizoaffective disorder Chronic pain syndrome Diabetic polyneuropathy Gout Surgical History No history of previous surgery Family History Father Cancer Diabetes Mother Cancer Diabetes Family/Other Cancer Diabetes Social History Household Members: Spouse Housing: Apartment Do you presently have visiting nurse or other home services: No Alcohol intake: never Patient Tobacco Use Status: Never used Tobacco Review of Systems Const All systems reviewed & are unremarkable except as noted in HPI and below ENT Reports Normal hearing present Neuro Reports Normal hearing present, Denies Abnormal speech present and Denies Sensory deficit (Neuro) Physical Exam Vital Signs: Last Vital Signs Pulse 100 07/10/23 11:04 Resp 17 07/10/23 11:04 BP 114/72 07/10/23 11:04 Pulse Ox 96 07/10/23 11:04 Oxygen Delivery Method Room Air 07/10/23 11:04 BMI result Body Mass Index 36.8 Const General: no acute distress Nutritional Appearance: obese morbidly obese Orientation/consciousness: patient oriented x3 Eyes General: appearance normal, both eyes and all related structures Pupils: Equal, round and reactive pupils present EOM: EOMs intact bilaterally Neck Neck: Yes full ROM Chest Chest palpation & inspection: normal inspection of the chest Resp Effort & Inspection: normal respiratory effort, able to speak in complete sentences, normal respiratory pattern, no audible wheezes and no cough Cardio Jugular venous distension: no JVD GI Inspection: Yes normal to inspection Neuro General: patient oriented x3 and gait normal Cranial nerves: Yes CN's II-XII intact bilaterally, Yes Equal, round and reactive pupils present, Yes Normal hearing present and Yes Ability to bilaterally elevate shoulders present Speech: No Abnormal speech present Gait exam (Neuro): Normal gait present Motor exam (neuro): 5/5 motor strength present throughout Sensory Exam: No Sensory deficit (Neuro) Extrem General: Yes normal to inspection, Yes full ROM and Yes pedal edema Assessment & Plan Assessment & Plan (1) Morbid obesity: Code(s): E66.01 - Morbid (severe) obesity due to excess calories (2) Gout: Code(s): M10.9 - Gout, unspecified (3) Diabetic polyneuropathy: Code(s): E11.42 - Type 2 diabetes mellitus with diabetic polyneuropathy (4) Chronic pain syndrome: Code(s): G89.4 - Chronic pain syndrome (5) Schizoaffective disorder: Code(s): F25.9 - Schizoaffective disorder, unspecified Plan 1. We will schedule him for Qutensa treatment. If this will not help for his pain in the upper ankle and lower leg he would need to address this issue to education manager. 2. He has not a good candidate for neuromodulation, implantable devices, he is suffering from schizoaffective disorder depressive type. Coding Level of Care Code Est Pt Level 3 (43344) Diagnoses Morbid obesity E66.01 Gout M10.9 Diabetic polyneuropathy E11.42 Chronic pain syndrome G89.4 Schizoaffective disorder F25.9
[2023-07-10 11:04] VITALS: BP 114/72; PULSE 100; RESP 17; O2SAT 96; BMI 36.8
== END 2023-07-10 11:28 | disposition home or self-care (01) ==
PROVIDERS: PCP Student in an Organized Health Care Education/Training Program; Visit Provider Anesthesiology
DX: E11.42 Type 2 diabetes mellitus with diabetic polyneuropathy (principal); M10.9 Gout, unspecified; G89.4 Chronic pain syndrome; E66.01 Morbid (severe) obesity due to excess calories; F25.9 Schizoaffective disorder, unspecified
CPT/HCPCS: 99213

== ENCOUNTER 2023-07-26 11:56 | Outpatient (REF) | payer MEDICAID, SELFPAY ==
[2023-07-26 14:16] LABS: Alanine Aminotransferase 19 U/L (0-40); Albumin Level 3.4 g/dL (3.5-5.0); Alkaline Phosphatase 143 U/L (39-117); Amylase 139 U/L (28-100); Anion Gap 12 (12-20); Aspartate Amino Transferase 15 U/L (5-37); Bilirubin Total 0.3 mg/dL (0.0-1.0); Blood Urea Nitrogen 34 mg/dL (9-16); Calcium 9.3 mg/dL (8.4-10.2); Carbon Dioxide 28 mmol/L (22-29); Chloride 101 mmol/L (96-108); Estimated Glomerular Filt Rate 31; Lipase 177 U/L (8-78); Potassium 4.2 mmol/L (3.3-5.1); Sodium 137 mmol/L (135-145)
[2023-07-26 14:20] LABS: Glucose Random 367 mg/dL (60-115)
== END 2023-07-26 11:57 | disposition home or self-care (01) ==
LOC: HO.HHCL 11:56
PROVIDERS: Visit Provider Student in an Organized Health Care Education/Training Program
DX: K86.1 Other chronic pancreatitis (principal)
CPT/HCPCS: 36415; 80053; 82150; 83690

== ENCOUNTER 2023-07-28 10:37 | Outpatient (AMB) | payer MEDICAID, SELFPAY ==
--- NOTE | 2023-07-28 10:41 | A.OFFVIS_ITS ---
Intake Vital Signs 07/28/23 10:43 Height 5 ft 8 in Weight 246 lb 14.684 oz BMI 37.5 BP 149/92 H Blood Pressure Location Lt brachial Position Sitting Pulse 86 Intake Visit Reasons: Polyp of colon Intake Note: Darrel presents in the office as a new patient - hx of polyps. Pains in the left side of his abdomen. Legal Clerk Required: Yes Legal Clerk Name: [email or web address] [id number] Allergies penicillin V Allergy (Mild, Verified 07/28/23 10:44) Rash Penicillins [PENICILLINS] Allergy (Unknown, Verified 07/28/23 10:44) RASH, DIFFICULTY BREATHING HPI Polyp of colon HPI Details HPI: 53 yr old m with hx of REGI, HTN< CKD, DM , obesity who I am seeing for assessment for colonoscopy He has fullness sensation in LUQ Has had this for >1 month constant, very light can be worse with fatty foods--has known gallstones He is on insulin, was on trulicity but stopped due to kidney problems denies nausea or vomiting he had colonoscopy maybe 3 yrs ago, apparently v large denies constipation on v high doses of humulin TID US: 07/10/23--steatosis, gallstone, Labs: mild raised lipase, nml LFT except mild raised alk phos ROS: Constitutional : No Weight loss, No Fever, No Chills ENT/Mouth : No sore throat, No Rhinorrhea Eyes: No Swelling, No Redness Cardiovascular : No Chest Pain, No SOB, No Edema Respiratory : No Cough, No Sputum, No Wheezing Gastrointestinal : see HPI Genitourinary : NO Dysuria, No Urinary Frequency, No Hematuria, No Urgency Musculoskeletal : + joint pain, No Myalgias, No Joint Swelling Skin : No Skin Lesions, No rash Neuro : No Weakness, No Numbness, No Dizziness, No Headache Psych : No Anxiety/Panic, No Depression Heme/Lymph: No Bruising, No Lymphadenopathy Endocrine : No Polyuria, No Polydipsia All other systems reviewed and are negative. Medical History Leukocytosis Memory loss Obesity Idiopathic gout of multiple sites GERD (gastroesophageal reflux disease) Hypertensive chronic kidney disease Secondary hyperparathyroidism, renal Chronic kidney disease Sleep apnea Type 2 diabetes mellitus Schizoaffective disorder Chronic pain syndrome Diabetic polyneuropathy Gout Surgical History colonoscopy Family History Father Cancer Diabetes Mother Cancer Diabetes Family/Other Cancer Diabetes Social History Household Members: Spouse Housing: Apartment Do you presently have visiting nurse or other home services: No Alcohol intake: never Patient Tobacco Use Status: Never used Tobacco EXAM: GENERAL: The patient is obese, short neck VITAL SIGNS:see workflow HEENT: Nonicteric sclerae, PERRLA, EOMI. Oropharynx clear. Moist mucous membranes. Conjunctivae appear well perfused. No thyroid mass. CHEST: Chest wall is nontender. HEART: Regular rate and rhythm without murmurs. LUNGS: Clear to auscultation bilaterally. ABDOMEN: Soft, positive bowel sounds, mildly tender epigastrium, no organomegaly.no flank tenderness SKIN: No rash, no excessive bruising, petechiae, or purpura. NEUROLOGIC: Cranial nerves II-XII intact without motor/sensory deficit. Psych: normal affect A/P: 1/ Upper abdominal pain, ddx: gastritis, gastroparesis, musculoskeletal or referred from spine 2/ hx of colon polyps 3/ ULLOA--hep C neg PLAN: 1/ EGD and colo, pre op assessment, [facility] bed, higher risk due to medical issues and obesity, short neck 2/ will send [employer] and needs to half hi s inuslin doses dsy before, not taking trulicity now 3/ weight loss and exercise, might need trental or vit E trial PFS Medical History Leukocytosis Memory loss Obesity Idiopathic gout of multiple sites GERD (gastroesophageal reflux disease) Hypertensive chronic kidney disease Secondary hyperparathyroidism, renal Chronic kidney disease Sleep apnea Type 2 diabetes mellitus Schizoaffective disorder Chronic pain syndrome Diabetic polyneuropathy Gout Surgical History No history of previous surgery Family History (Updated 07/28/23 @ 10:47 by KEN Judge) Father Cancer Diabetes Mother Cancer Diabetes Colon cancer Family/Other Cancer Diabetes Social History Household Members: Spouse Housing: Apartment Do you presently have visiting nurse or other home services: No Alcohol intake: never Patient Tobacco Use Status: Never used Tobacco Physical Exam Vital Signs: BMI result Body Mass Index 37.5 Assessment & Plan Assessment & Plan (1) Colon polyp: Code(s): K63.5 - Polyp of colon Qualifiers: Colon polyp type: unspecified Colon location: unspecified part of colon Qualified Code(s): K63.5 - Polyp of colon Plan: see above Coding Level of Care Code New Pt Level 4 (08210) Diagnoses Polyp of colon, unspecified part of colon, unspecified type K63.5 Colon polyp type: unspecified Colon location: unspecified part of colon
[2023-07-28 10:43] VITALS: BP 149/92; PULSE 86; BMI 37.5
== END 2023-07-28 11:12 | disposition home or self-care (01) ==
PROVIDERS: PCP Student in an Organized Health Care Education/Training Program; Referring Provider Surgery; Visit Provider Internal Medicine Gastroenterology
DX: K63.5 Polyp of colon (principal)
CPT/HCPCS: 99204

== ENCOUNTER → 2023-07-28 10:37 | Outpatient (BNVA) | payer MEDICAID, SELFPAY | PROVIDERS: PCP Student in an Organized Health Care Education/Training Program; Referring Provider Surgery; Visit Provider Internal Medicine Gastroenterology | DX: K63.5 Polyp of colon (principal) | CPT/HCPCS: 99202 ==

== ENCOUNTER → 2023-08-01 12:27 | Outpatient (REF) | payer MEDICAID, SELFPAY | LOC: HO.SL 12:27 | PROVIDERS: PCP Student in an Organized Health Care Education/Training Program; Visit Provider Nurse Practitioner Family | DX: G47.33 Obstructive sleep apnea (adult) (pediatric) (principal) | CPT/HCPCS: 95806 ==

== ENCOUNTER → 2023-08-01 13:05 | Outpatient (BNV) | payer MEDICAID, SELFPAY | PROVIDERS: PCP Student in an Organized Health Care Education/Training Program; Visit Provider Psychiatry & Neurology Neurology | DX: G47.33 Obstructive sleep apnea (adult) (pediatric) (principal) | CPT/HCPCS: 95806 ==

== ENCOUNTER 2023-08-18 13:42 | Outpatient (REF) | payer MEDICAID, SELFPAY ==
--- NOTE | ~2023-08-18 | US_ITS ---
EXAMINATION: US VENOUS ULTRASOUND WITH DOPPLER LOWER EXTREMITY, BILATERAL CLINICAL INFORMATION: Pain and swelling COMPARISON: Previous exam June 2023 TECHNIQUE: Ultrasound of the deep veins is performed from the hip to the calf with compression sonography and color and pulse Doppler assessment. Spectral analysis with color-flow imaging is performed. FINDINGS: RIGHT: There is normal venous compression and respiratory variation and augmented flow. The visualized common femoral vein, superficial femoral vein, profunda femoral vein, popliteal vein, and the trifurcation region shows no evidence of deep venous thrombosis. The left peroneal veins are not well visualized. There is no significant popliteal fossa cyst. LEFT: There is normal venous compression and respiratory variation and augmented flow. The visualized common femoral vein, superficial femoral vein, profunda femoral vein, popliteal vein, and the trifurcation region shows no evidence of deep venous thrombosis. The left peroneal veins are not well visualized. There is no significant popliteal fossa cyst. If the patient's symptoms persist, followup ultrasound in 5 days 7 days might be of value to exclude proximal propagation from a non-visualized calf vein. US/US venous duplex LE BI IMPRESSION: No DVT demonstrated in the bilateral lower extremity. Peroneal veins are not well visualized bilaterally.
== END 2023-08-18 13:43 | disposition home or self-care (01) ==
LOC: HO.US 13:42
PROVIDERS: PCP Student in an Organized Health Care Education/Training Program; Visit Provider Emergency Medicine
DX: M79.604 Pain in right leg (principal); M79.605 Pain in left leg
CPT/HCPCS: 93970

== ENCOUNTER 2023-08-22 12:15 | Emergency (ER) | payer MEDICAID, SELFPAY ==
--- NOTE | ~2023-08-22 | US_ITS ---
EXAMINATION: US VENOUS ULTRASOUND WITH DOPPLER LOWER EXTREMITY, LEFT CLINICAL INFORMATION: Pain COMPARISON: Lower extremity Doppler 08/18/2023 TECHNIQUE: Ultrasound of the deep veins is performed from the hip to the calf with compression sonography and color and pulse Doppler assessment. Spectral analysis with color-flow imaging is performed. FINDINGS: There is normal venous compression and respiratory variation and augmented flow. The visualized common femoral vein, superficial femoral vein, profunda femoral vein, popliteal vein, and the trifurcation region shows no evidence of deep venous thrombosis. There is no significant popliteal fossa cyst. Non pathologically enlarged left groin lymph node noted. If the patient's symptoms persist, followup ultrasound in 5 days 7 days might be of value to exclude proximal propagation from a non-visualized calf vein. US/US venous duplex LE LT IMPRESSION: No DVT demonstrated in the left lower extremity.
--- NOTE | ~2023-08-22 | XR_ITS ---
EXAMINATION: XR KNEE, LEFT CLINICAL INFORMATION: Gout. COMPARISON: None available. TECHNIQUE: Four views of the left knee. FINDINGS: No fracture or joint effusion. Alignment is anatomic. Joint spaces are maintained. There is no chondrocalcinosis. No bony erosions. Small enthesophytes at the superior and inferior pole of the patella. Vascular calcifications in the posterior soft tissues of the knee. XR/XR knee LT 4V IMPRESSION: No acute fracture or dislocation. No bony erosions. No chondrocalcinosis.
[2023-08-22 12:26] VITALS: BP 146/86; PULSE 97; RESP 16; TEMP 36.6; O2SAT 95; BMI 38.6
--- NOTE | 2023-08-22 12:35 | ED.GENADULT ---
HPI - General Adult General Chief complaint: Extremity Injury, Lower Stated complaint: L/R Leg Pain L Foot Swelling Time Seen by Provider: 08/22/23 15:14 Source: patient, RN notes reviewed, old records reviewed and science interpreter (greek) Mode of arrival: ambulatory Limitations: no limitations History of Present Illness HPI narrative: 53 year old Norwegian speaking male with pmhx of GERD, T2DM, neuropathy, idiopathic gout of multiple sites, hypertension, CKD, secondary hyperparathyroidism, obesity, REGI, schizoaffective disorder, chronic pain syndrome presents to the ED today for evaluation of left leg and foot pain/ swelling x2 weeks. Admits swelling has been intermittent, noting there are days where his leg is not swollen. Describes this as a pressure sensation, mainly within his left knee and left ankle. His has been massaging his legs which seem to improve swelling/pain. Denies injury or trauma. Denies hx of VTE. Denies recent travel or long car rides. He has been told I have an enlarged heart but is unaware of any known cardiac conditions or CHF. medical interpreter utilized throughout visit to communicate with patient. Related Data Home Medications ?Medication ?Instructions ?Recorded ?Confirmed allopurinol 100 mg tablet 50 mg PO DAILY 11/09/22 06/15/23 blood-glucose meter,continuous 11/09/22 06/15/23 (OrderDynamics G7 Pin Sticker) carvedilol 25 mg tablet 25 mg PO BID 11/09/22 06/15/23 dulaglutide 4.5 mg/0.5 mL 4.5 mg subcut QWEEK 11/09/22 06/15/23 subcutaneous pen injector (Trulicity) empagliflozin 25 mg tablet 25 mg PO DAILY 11/09/22 06/15/23 furosemide 80 mg tablet 80 mg PO BID 11/09/22 06/15/23 gabapentin 800 mg tablet 800 mg PO DAILY 11/09/22 06/15/23 insulin regular hum U-500 conc 500 140 unit subcut DAILY@1200 11/09/22 06/15/23 unit/mL subcutaneous soln (Humulin R U-500 (Concentrated) Insulin) pantoprazole 40 mg tablet,delayed 40 mg PO DAILY 11/09/22 06/15/23 release trazodone 150 mg tablet 150 mg PO BEDTIME PRN Sleep 11/09/22 06/15/23 acetaminophen 500 mg tablet 1,000 mg PO Q6H PRN fever 06/08/23 06/15/23 albuterol sulfate 2.5 mg/3 mL 2.5 mg inhalation Q6H PRN wheezing 06/08/23 06/15/23 (0.083 %) solution for nebulization amlodipine 2.5 mg tablet 2.5 mg PO QAM 06/08/23 06/15/23 aspirin 81 mg chewable tablet 1 tab PO QAM 06/08/23 06/15/23 atorvastatin 80 mg tablet 80 mg PO DAILY 06/08/23 06/15/23 calcium carbonate 200 mg calcium 400 mg PO QAM 06/08/23 06/15/23 (500 mg) chewable tablet (Calcium Antacid) carboxymethylcellulose sodium 0.5 1 drp ophthalmic (eye) NEEDED 06/08/23 06/15/23 % eye drops in a dropperette dry eyes (Lubricant Eye Drops) cholecalciferol (vitamin D3) 50 50 mcg PO QAM 06/08/23 06/15/23 mcg (2,000 unit) tablet clonazepam 0.5 mg tablet 0.5 mg PO TID 06/08/23 06/15/23 divalproex 500 mg tablet,extended 1,000 mg PO BEDTIME 06/08/23 06/15/23 release 24 hr (Depakote ER) ezetimibe 10 mg tablet 10 mg PO QAM 06/08/23 06/15/23 gabapentin 600 mg tablet 600 mg PO BID 06/08/23 06/15/23 insulin regular hum U-500 conc 500 135 unit subcut DAILY@0730 06/08/23 06/15/23 unit/mL(3 mL) subcut pen (Humulin R U-500 (Conc) Insulin Kwikpen) insulin regular hum U-500 conc 500 140 unit subcut DAILY@1730 06/08/23 06/15/23 unit/mL(3 mL) subcut pen (Humulin R U-500 (Conc) Insulin Kwikpen) lidocaine 5 % topical patch 1 patch topical DAILY PRN Pain 06/08/23 06/15/23 omega-3 300 mg-dha 120 mg-epa 180 1 cap PO BID 06/08/23 06/15/23 mg-fish oil 1,000 mg capsule tiotropium bromide 1.25 2 puff inhalation QAM 06/08/23 06/15/23 mcg/actuation mist for inhalation (Spiriva Respimat) tramadol 50 mg tablet 50 mg PO Q8H PRN severe pain 06/08/23 06/15/23 ziprasidone HCl 80 mg capsule 80 mg PO BEDTIME 06/08/23 06/15/23 (Darlyn) blood-glucose sensor ([employer] G7 #1 ea 07/28/23 Sensor device) fluticasone propionate 230 2 puff inhalation 07/28/23 mcg-salmeterol 21 mcg/actuation HFA inhaler (Advair HFA) losartan 100 mg tablet 100 mg PO QAM 07/28/23 pen needle, diabetic 31 gauge x #1,200 ea 07/28/2307/21 (BD Ultra-Fine Mini Pen Needle) Previous Rx's ?Medication ?Instructions ?Recorded doxycycline hyclate 100 mg tablet 100 mg PO BID #14 tabs 06/15/23 sodium,potassium,mag sulfates 17.5 See Rx Instructions PO .COMPLEX 07/28/23 gram-3.13 gram-1.6 gram oral soln #354 mL (Suprep Bowel Prep Kit) prednisone 20 mg tablet 40 mg (2 x 20 mg) PO DAILY 7 days 08/22/23 #14 tabs Allergies Allergy/AdvReac Type Severity Reaction Status Date / Time penicillin V Allergy Mild Rash Verified 08/22/23 12:26 Penicillins [PENICILLINS] Allergy Unknown RASH, Verified 08/22/23 12:26 DIFFICULTY BREATHING Review of Systems Review of Systems: Constitutional: No fever, chills, fatigue, night sweats, weight changes ENT/Mouth: No ear pain, hearing loss, nasal congestion, sinus pain, rhinorrhea, sore throat Eyes: No eye pain, swelling, redness, vision changes, discharge Cardio: No chest pain, palpitations, SHELLEY, orthopnea, peripheral edema Pulm: No SOB, cough, sputum, wheezing, dyspnea, hemoptysis GI: No nausea, vomiting, hematemesis, abdominal pain, diarrhea, constipation, hematochezia, melena : No irregular bleeding, dysuria, frequency, urgency, hesitancy, hematuria, flank pain, urinary flow changes, urinary incontinence or retention MSK: No back pain, neck pain, joint pain, myalgias, + left knee and ankle pain/swelling Skin: No lesions, rashes Neuro: No weakness, numbness, paresthesias, LOC, dizziness, headache Psych: No anxiety/panic, depression, SI/HI, AH/VH All other systems reviewed and are negative. [facility] Past Medical History Attestation statement: The following information was validated with the patient. Source: old records reviewed and nursing notes reviewed Medical History Leukocytosis Memory loss Obesity Idiopathic gout of multiple sites GERD (gastroesophageal reflux disease) Hypertensive chronic kidney disease Secondary hyperparathyroidism, renal Chronic kidney disease Sleep apnea Type 2 diabetes mellitus Schizoaffective disorder Chronic pain syndrome Diabetic polyneuropathy Gout Surgical History No history of previous surgery Family History Family History Father Cancer Diabetes Mother Cancer Diabetes Colon cancer Family/Other Cancer Diabetes Social History Social History Household Members: Spouse Housing: Apartment Do you presently have visiting nurse or other home services: No Alcohol intake: never Patient Tobacco Use Status: Never used Tobacco Advance Directives: No Advance Directives Information Provided: No Physical Exam ED Vital Signs: Vital Signs - 24 hr 08/22/23 12:26 Temperature 97.9 F Pulse Rate 97 Respiratory Rate 16 Blood Pressure 146/86 H Pulse Oximetry 95 Oxygen Delivery Method Room Air BMI result Body Mass Index 38.6 Hypertensive, vitals otherwise WNL. Const General: cooperative, healthy appearing, comfortable and no acute distress Orientation/consciousness: patient oriented x3 Limitations: no limitations [facility] Head: Yes normal to inspection, Yes No palpable skull fracture present, Yes normocephalic and Yes atraumatic Eyes General: appearance normal, both eyes and all related structures Conjunctivae: conjunctivae normal Sclerae: sclerae normal Pupils: Equal, round and reactive pupils present Neck Neck: Yes normal visual inspection, Yes full ROM and Yes no JVD Resp Effort & Inspection: normal respiratory effort and able to speak in complete sentences Auscultation: clear to auscultation bilaterally and no crackles Cardio Rate: regular rate Rhythm: regular rhythm GI Inspection: Yes normal to inspection Palpation (GI): Soft to palpation Skin General skin exam: no rashes or lesions noted Neuro Other: Strength 5/5 intact throughout. Sensation intact to light touch.? Neurovascular intact distally.? General: patient oriented x3 Cranial nerves: Yes Equal, round and reactive pupils present Extrem Other: + Ambulating with steady gait. On exam, left lower extremity with nonpitting edema. Tender to palpation over the left knee and left ankle. Warm to the touch. No palpable fluctuance or deformity. Full ROM to left knee and ankle. 2+ PT/DP and popliteal pulses bilaterally. No calf tenderness bilaterally. Course Course Course Narrative: RME- 53-year-old male presents for evaluation of left leg/foot pain. He has a history of gout. No history of DVT. His left leg is edematous. Plan for ultrasound to rule out DVT Reevaluation(s) Reevaluation #1: 1740-- leukocytosis to 13.5 which appears to be around patient's baseline. No left shift. His uric acid is elevated to 9.4 which may be contributing to leukocytosis. BUN and creatinine elevated to 41 and 2.16. This is chronic when compared to priors secondary to patient's chronic kidney disease. BNP WNL at 15 > no concern for congestive heart failure. Patient's lungs are CTA bilaterally and he does not endorse shortness of breath or chest pain. Chest x-ray not warranted at this time. Venous duplex of left lower extremity negative for clot. X-ray left knee does not demonstrate fracture or calcifications. Patient likely has an acute gout flare. He tells me that he used to be on allopurinol daily however was taken off of this a few months ago by his PCP. Will send prednisone to pharmacy for acute flare. Advised him to monitor his sugars closely at home as this can elevate them. He verbalizes understanding. Advised him to follow-up with PCP within the next week as he may need to restart allopurinol. Will not prescribe NSAIDs at this time due to patient's chronic kidney disease. Tylenol given for pain. Patient has remained stable throughout ED visit today. Discussed worrisome signs and symptoms and when to return to the ED. All questions answered at this time. Patient is agreeable with disposition and stable for discharge. Medications Administered Discontinued Medications Generic Name Dose Route Start Last Admin Trade Name Freq PRN Reason Stop Dose Admin Acetaminophen 975 mg 08/22/23 17:55 08/22/23 18:14 Acetaminophen 325 Mg Tablet PO 08/22/23 17:56 975 mg ONCE ONE Administration Sodium Chloride 1,000 mls @ 999 mls/hr 08/22/23 16:15 08/22/23 16:33 Ns IV 08/22/23 17:15 999 mls/hr .Q1H1M DAMIAN Administration Prednisone 40 mg 08/22/23 17:55 08/22/23 18:15 Prednisone 20 Mg Tablet PO 08/22/23 17:56 40 mg ONCE ONE Administration Medical Decision Making Medical Decision Making [facility] Narrative: 53 year old Norwegian speaking male with pmhx of GERD, T2DM, neuropathy, idiopathic gout of multiple sites, hypertension, CKD, secondary hyperparathyroidism, obesity, REGI, schizoaffective disorder, chronic pain syndrome presents to the ED today for evaluation of left leg and foot pain/ swelling x2 weeks. Patient hypertensive. Vitals otherwise WNL. Afebrile. He is nontoxic appearing in no acute distress. Ambulating with steady gait. On exam, left lower extremity with nonpitting edema. Tender to palpation over the left knee and left ankle. Warm to the touch. No palpable fluctuance or deformity. Full ROM to left knee and ankle. 2+ PT/DP and popliteal pulses bilaterally. No calf tenderness bilaterally. Lungs CTA bilaterally. No crackles. No JVD. Differential diagnosis includes gout, pseudogout, DVT, Conway's cyst, CHF, venous insufficiency. Lower suspicion for ACS, arrhythmia, septic arthritis, tick-borne illness, fracture, dislocation. Plan for labs, imaging, re-evaluation. Differential Diagnosis Differential Diagnoses: The differential diagnosis associated with the presentation includes as above. Admission/Observation Consideration of admission/observation: Escalation of care including admission/observation considered Admission considered on presentation. Lab Data [facility] Lab Attestation statement: I reviewed the patient's lab results. As above 08/22/23 15:41 08/22/23 15:41 Labs: Lab Results 08/22/23 Range/Units 15:41 WBC 13.5 H (4.8-10.8) X10*3/uL RBC 4.86 (4.60-5.80) X10*6/uL Hgb 14.1 (14.0-18.0) g/dl Hct 42.9 (42.0-52.0) % MCV 88.3 (80.0-98.0) fL MCH 29.0 (27.0-33.0) pg MCHC 32.9 (31.0-36.0) g/dl RDW 13.5 (11.0-16.0) % Plt Count 277 (160-400) X10*3/uL MPV 12.4 (9.4-12.4) fL Immature Gran % (Auto) 0.5 H (0.0-0.4) % Neut % (Auto) 57.6 (45-73) % Lymph % (Auto) 29.2 (20-40) % [place] % (Auto) 9.2 (2-11) % Eos % (Auto) 3.2 (0-4) % Baso % (Auto) 0.3 (0-2) % Lymph # (Auto) 4.0 (1.2-4.9) X10*3/uL [place] # (Auto) 1.2 (0.1-1.2) X10*3/uL Eos # (Auto) 0.4 (0.0-0.4) X10*3/uL Baso # (Auto) 0.0 (0.0-0.2) X10*3/uL Abs Immat Gran (auto) 0.07 H (0.00-0.03) X10*3/uL Absolute Neuts (auto) 7.8 (2.0-8.3) x10*3/uL Absolute Nucleated RBC 0.000 (0.0-0.012) X10*3/uL Nucleated RBC % (auto) 0.0 (0.0-0.2) /100WBC Sodium 139 (135-145) mmol/L Potassium 4.4 (3.3-5.1) mmol/L Chloride 108 (96-108) mmol/L Carbon Dioxide 24 (22-29) mmol/L Anion Gap 11 L (12-20) BUN 41 H (9-16) mg/dL Creatinine 2.16 H (0.5-1.4) mg/dL Estim Creat Clear Calc 48.7 Estimated GFR 32 Random Glucose 214 H (60-115) mg/dL Uric Acid 9.4 H (3.4-7.0) mg/dL Calcium 9.2 (8.4-10.2) mg/dL Magnesium 2.2 (1.6-2.6) mg/dL Total Bilirubin 0.3 (0.0-1.0) mg/dL AST 12 (5-37) U/L ALT 16 (0-40) U/L Alkaline Phosphatase 117 (39-117) U/L B-Natriuretic Peptide 15 (<100) pg/mL Total Protein 6.5 (6.5-8.0) g/dL Albumin 3.3 L (3.5-5.0) g/dL Independent Interpretation I performed an independent interpretation of an: Plain X-Ray and Ultrasound Interpretation: X-ray left knee does not demonstrate calcifications, agree with radiologist's interpretation. Ultrasound left lower extremity does not demonstrate clot, agree with radiologist's interpretation. Radiology Impression Discussion of test interpretation with radiology: I have reviewed the radiologist's reading. Radiologist Impression: EXAMINATION: XR KNEE, LEFT CLINICAL INFORMATION: Gout. COMPARISON: None available. TECHNIQUE: Four views of the left knee. FINDINGS: No fracture or joint effusion. Alignment is anatomic. Joint spaces are maintained. There is no chondrocalcinosis. No bony erosions. Small enthesophytes at the superior and inferior pole of the patella. Vascular calcifications in the posterior soft tissues of the knee. XR/XR knee LT 4V IMPRESSION: No acute fracture or dislocation. No bony erosions. No chondrocalcinosis. EXAMINATION: US VENOUS ULTRASOUND WITH DOPPLER LOWER EXTREMITY, LEFT CLINICAL INFORMATION: Pain COMPARISON: Lower extremity Doppler 08/18/2023 TECHNIQUE: Ultrasound of the deep veins is performed from the hip to the calf with compression sonography and color and pulse Doppler assessment. Spectral analysis with color-flow imaging is performed. FINDINGS: There is normal venous compression and respiratory variation and augmented flow. The visualized common femoral vein, superficial femoral vein, profunda femoral vein, popliteal vein, and the trifurcation region shows no evidence of deep venous thrombosis. There is no significant popliteal fossa cyst. Non pathologically enlarged left groin lymph node noted. If the patient's symptoms persist, followup ultrasound in 5 days 7 days might be of value to exclude proximal propagation from a non-visualized calf vein. US/US venous duplex LE LT IMPRESSION: No DVT demonstrated in the left lower extremity. Independent Historian Clinical information obtained from an independent historian. History obtained from or confirmed by: Spouse External Record Review External record reviewed: Inpatient record, Office record, Outpatient record, Prior outpatient labs, Prior outpatient radiology, Primary care record and Outside ED record Prescription Management I considered prescription management with: Pain Medication and Other (Prednisone) Chronic Conditions Patient?s care impacted by: Diabetes Social Determinants Patient?s care significantly limited by Social Determinants of Health including: Other Social Determinant of Health Critical Care Time Critical Care Time Critical Care Time: Yes Total Critical Care Time: 45 Attestation: Critical care time in the amount of 45 minutes has been provided to the patient in terms of direct patient care, frequent reevaluation, review and interpretation of medical data and results, and management of potentially life-threatening conditions. This is all outside of any medical procedures. Discharge Plan Discharge Clinical Impression: Gout Patient Disposition: Home, Self-Care Instructions: Low Purine Diet (ED), Gout (ED) Additional Instructions: Your labs today are reassuring. Your uric acid level is elevated indicating acute gout flare. Treatment for this is with steroids. Prednisone as a steroid that has been sent to your pharmacy. Take this over the next 7 days. You were noted to have diabetes. Prednisone can increase sugars. Please monitor your sugars closely at home to make sure they are well controlled while on prednisone. You may take Tylenol for pain/discomfort. Make sure you are sticking to a low purine diet to prevent future gout flares. See attached paperwork. Please follow-up with your primary care provider this week for further management as you may need to start allopurinol again. Return with new or worsening symptoms. In the case of an emergency call 911. Prescriptions: New prednisone 20 mg tablet 40 mg PO DAILY 7 Days Qty: 14 0RF No Action ziprasidone HCl [Geodon] 80 mg capsule 80 mg PO BEDTIME atorvastatin 80 mg tablet 80 mg PO DAILY albuterol sulfate 2.5 mg /3 mL (0.083 %) solution for nebulization 2.5 mg inhalation Q6H PRN (Reason: wheezing) clonazepam 0.5 mg tablet 0.5 mg PO TID amlodipine 2.5 mg tablet 2.5 mg PO QAM tramadol 50 mg tablet 50 mg PO Q8H PRN (Reason: severe pain) acetaminophen 500 mg tablet 1,000 mg PO Q6H PRN (Reason: fever) divalproex [Depakote ER] 500 mg tablet extended release 24 hr 1,000 mg PO BEDTIME lidocaine 5 % adhesive patch,medicated 1 patch topical DAILY PRN (Reason: Pain) calcium carbonate [Calcium Antacid] 200 mg calcium (500 mg) tablet,chewable 400 mg PO QAM ezetimibe 10 mg tablet 10 mg PO QAM carboxymethylcellulose sodium [Lubricant Eye Drops] 0.5 % dropperette 1 drp ophthalmic (eye) NEEDED cholecalciferol (vitamin D3) 50 mcg (2,000 unit) tablet 50 mcg PO QAM Spiriva Respimat 1.25 mcg/actuation mist 2 puff INHALATION QAM omega [id number]-fish oil 300 mg (120 mg- 180mg)-1,000 mg capsule 1 cap PO BID aspirin 81 mg tablet,chewable 1 tab PO QAM gabapentin 600 mg tablet 600 mg PO BID Humulin R U-500 (Conc) Kwikpen 500 unit/mL (3 mL) insulin pen 140 unit subcut DAILY@1730 Rx Instructions: hold if BS < 100 Humulin R U-500 (Conc) Kwikpen 500 unit/mL (3 mL) insulin pen 135 unit subcut DAILY@0730 Rx Instructions: hold if BS < 100 gabapentin 800 mg tablet 800 mg PO DAILY Trulicity 4.5 mg/0.5 mL pen injector 4.5 mg subcut QWEEK trazodone 150 mg tablet 150 mg PO BEDTIME PRN (Reason: Sleep) Humulin R U-500 (Conc) Insulin 500 unit/mL solution 140 unit subcut DAILY@1200 Rx Instructions: hold if BS < 100 pantoprazole 40 mg tablet,delayed release (DR/EC) 40 mg PO DAILY furosemide 80 mg tablet 80 mg PO BID empagliflozin 25 mg tablet 25 mg PO DAILY carvedilol 25 mg tablet 25 mg PO BID Rx Instructions: must administer with a meal/food allopurinol 100 mg tablet 50 mg PO DAILY (DME) Dexcom G7 Pin Sticker Misc See Rx Instructions .Route Rx Instructions: As directed fluticasone propion-salmeterol [Advair HFA] 230-21 mcg/actuation HFA aerosol inhaler 2 puff inhalation losartan 100 mg tablet 100 mg PO QAM (DME) Dexcom G7 Sensor Device See Rx Instructions .ROUTE QWEEK Qty: 1 Rx Instructions: As directed (DME) pen needle, diabetic [BD Ultra-Fine Mini Pen Needle] 31 gauge x 3/16 needle See Rx Instructions .ROUTE DIRECTED Qty: 1200 Rx Instructions: As directed sodium,potassium,mag sulfates [Suprep Bowel Prep Kit] 17.5-3.13-1.6 gram recon soln See Rx Instructions PO .COMPLEX Qty: 354 0RF Rx Instructions: DILUTE; drink 1/2 at 6-8 pm and half at 11 PM- 1AM doxycycline hyclate 100 mg tablet 100 mg PO BID Qty: 14 0RF Referrals: [facility] Family Medicine [Provider Group] [facility] [Provider Group] [facility] [Provider Group] Print Language: Norwegian
--- OUTSIDE RECORDS SUMMARY | 2023-08-22 15:19 | XMS_ITS | Continuity of Care Document ---
Author Organization [facility] Address [address] [place] [address]- Care Team Providers Care Surgery Nurse Name Role Phone José López MD, Katrin Ladd Primary Care Jeffrey naik Encounter [facility] Date(s): 06/29/23 - 07/29/23 [facility] [address] [place] [id number] Allergies, Adverse Reactions, Alerts Substance Reaction Severity [...] Refills, Maintenance, 08/25/22 18:29:00 EDT, Aerosol, [facility], Partial fill upon patient request if [...] 18:25:00 EDT, Route to Pharmacy Electronically, [facility] Partial fill upon patientrequest if the prescription is for a schedule II op... Start Date: 08/25/22 Status: Ordered aspirin 81 mg oral delayed release tablet 81 mg, 1, tablet, By Mouth, Daily, # 90 tablet, Refills 1, Tot. Refills 1, Maintenance, 08/25/22 18:25:00 EDT, Route to Pharmacy Electronically, [facility], Partial fill upon patient request if the prescription is for a schedule II opi... Start Date: 08/25/22 Status: Ordered atorvastatin 80 mg oral tablet 1 tablet = 80 mg, By Mouth, Daily, # 90 tablet, 1 Refills, Maintenance, 08/25/22 18:25:00 EDT, Tablet, [facility], Partial fill upon patient request [...] 08/25/22 18:25:00 EDT, Route to Pharmacy Electronically, [facility], Partial fill upon patient request [...] 0, Tot. Refills 0, Maintenance, Dexcom G7 complaint adjuster use as directed. e11.9, 09/14/22 10:15:00 EDT, Compound, 176, cm, 09/14/22 9:47:00 EDT, Height Start Date: 09/14/22 Status: Ordered Dexcom G7 Sensor Dexcom G7 Sensor, See Instructions, # 10 each, Refills 3, Tot. Refills 3, Maintenance, Apply DexcomG7 sensor Every 10 days. e11.9, 07/07/23 11:31:00 EST, Supply, 176, cm, 05/25/23 15:45:00 EST, Height Start Date: 07/07/23 Status: Ordered diclofenac 1% topical gel 1 [...] 8 Refills, Maintenance, 12/13/22 12:20:00 EDT, Tablet, [facility], Partial fill upon patient request if the prescription is for a schedule II opioid drug., 176, cm, 10/31/22 13:... Start Date: 12/13/22 Status: Ordered ergocalciferol 74041 iu oral capsule 50,000 International_Units, 1, capsule, By Mouth, Every week, # 13 capsule, Refills 0, Tot. Refills0, Maintenance, 09/22/22 9:24:00 EDT, Route to Pharmacy Electronically, [facility],Partial fill upon patient request if the prescripti... Start Date: 09/22/22 Stop Date: 12/21/22 Status: Ordered Eucerin Plus topical lotion 1 application, Topically, 2 times a day, PRN for dry skin, # 180 mL, 0 Refills, Maintenance, 08/26/22 17:33:00 EDT, Lotion, [facility]., Partial fill upon patient request if the prescription is for a schedule II opioid drug., 1 applicat... Start Date: 08/26/22 Status: Ordered fluticasone 50 mcg/inh nasal spray 2 sprays = 100 mcg, Nares, Both, Daily in AM, # 16 Gm, 3 Refills, Maintenance, 08/25/22 18:32:00 EDT, Nasal [place], [facility]., Partial fill upon patient request if [...] 08/26/22 16:04:00 EDT, Route to Pharmacy Electronically, [facility]., 176, cm, 08/17/22 14:18:00 EDT, Height [...] mL, 5 Refills, Maintenance, 05/27/23 8:16:00 EST, [facility], Malaylabel, 176, cm, 05/25/23 15:45:00 EST, Height Start Date: 05/27/23 Status: Ordered Jardiance 25 mg oral tablet 30 each, 0 Refill(s), TAKE 1 TABLET BY MOUTH EVERY MORNING, 0 Refills, 07/18/23 11:25:00 EDT, Partial fill upon patient request if the prescription is for a schedule II opioid drug. Start Date: 07/18/23 Status: Ordered lidocaine 5% topical film 1 [...] 08/09/22 11:45:00 EDT, Route to Pharmacy Electronically, [facility], Partial fill upon patient request if the prescription is for a schedule II opi... Start Date: 08/09/22 Status: Ordered losartan 50 mg oral tablet 1 tablet = 50 mg, By Mouth, Daily, # 90 tablet, 1 Refills, Maintenance, 10/17/22 16:21:00 EDT, [facility] 176, cm, 09/19/22 13:07:00 EDT, Height Start Date: 10/17/22 Stop Date: 04/15/23 Status: Ordered Ondansetron 0 Refills, Maintenance, 07/18/23 11:02:00 EDT, Partial fill upon patient request if the prescription is for a schedule II opioid drug. Start Date: 07/18/23 Status: Ordered pantoprazole 40 mg oral delayed release tablet 1 tablet = 40 mg, By Mouth, Daily, # 7 tablet, 0 Refills, Maintenance, 08/26/22 14:59:00 EDT, EC Tablet, 176, cm, 08/17/22 14:18:00 EDT, Height Start Date: 08/26/22 Stop Date: 09/02/22 Status: Ordered Pen [place], 31 G x 5 mm BD Ultra [...] 1 Refills, Maintenance, 08/25/22 18:29:00 EDT, Aerosol, [facility]., Partial fill upon patient request if [...] Gm, 0 Refills,Maintenance, 08/25/22 18:29:00 EDT, Inhaler, [facility]., Partial fill upon patient request if [...] 0 Refills, Maintenance, 08/09/22 13:01:00 EDT, [facility]., Partial fill upon patient request if [...] Name: José López MD, Katrin Ladd Position: [facility] Outreach Member Role: PCP Address: Address: [address] [place] [address]- Care Team Related Persons Name: BOYDMARILU Address: [place] [address]
--- OUTSIDE RECORDS SUMMARY | 2023-08-22 15:19 | XMS_ITS | Continuity of Care Document ---
Author Organization [facility] Address [address] [place] [id number]- Care Team Providers Care English As A Second Language Instructor Name Role Phone José López MD, Katrin Ladd Primary Care Jeffrey naik Encounter [facility] Date(s): 07/18/23 - 08/17/23 [facility] [address] [place] [id number]- Attending Physician: Ani Atkinson Admitting Physician: AdmAni subramanian Referring Physician: Ani Atkinson Allergies, Adverse Reactions, Alerts Substance Reaction Severity [...] 1 Refills, Maintenance, 08/25/22 18:29:00 EDT, [facility]ol[facility] upon [facility] [...] 18:25:00 EDT, Route to Pharmacy Electronically, [facility], Partial fill upon patientrequest if the prescription is for a schedule II op... Start Date: 08/25/22 Status: Ordered aspirin 81 mg oral delayed release tablet 81 mg, 1, tablet, By Mouth, Daily, # 90 tablet, Refills 1, Tot. Refills 1, Maintenance, 08/25/22 18:25:00 EDT, Route to Pharmacy Electronically, [facility], Partial fill upon patient request if the prescription is for a schedule II opi... Start Date: 08/25/22 Status: Ordered atorvastatin 80 mg oral tablet 1 tablet = 80 mg, By Mouth, Daily, # 90 tablet, 1 Refills, Maintenance, 08/25/22 18:25:00 EDT, Tablet, [facility], Partial fill upon patient request if [...] 18:25:00 EDT, Route to Pharmacy Electronically, [facility], Partial fill upon patient request if [...] 0, Tot. 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 e11.9, 09/14/22 10:15:00 EDT, [...] 8 Refills, Maintenance, 12/13/22 12:20:00 EDT, Tablet, [facility], Partial fill upon patient request if the prescription is for a schedule II opioid drug., 176, cm, 10/31/22 13:... Start Date: 12/13/22 Status: Ordered ergocalciferol 55798 iu oral capsule 50,000 International_Units, 1, capsule, By Mouth, Every week, # 13 capsule, Refills 0, Tot. Refills0, Maintenance, 09/22/22 9:24:00 EDT, Route to Pharmacy Electronically, [facility],Partial fill upon patient request if the prescripti... Start Date: 09/22/22 Stop Date: 12/21/22 Status: Ordered Eucerin Plus topical lotion 1 application, Topically, 2 times a day, PRN for dry skin, # 180 mL, 0 Refills, Maintenance, 08/26/22 17:33:00 EDT, Lotion, [facility]., Partial fill upon patient request if the prescription is for a schedule II opioid drug., 1 applicat... Start Date: 08/26/22 Status: Ordered fluticasone 50 mcg/inh nasal spray 2 sprays = 100 mcg, Nares, Both, Daily in AM, # 16 Gm, 3 Refills, Maintenance, 08/25/22 18:32:00 EDT, Nasal [place], [facility]., Partial fill upon patient request if [...] 08/26/22 16:04:00 EDT, Route to Pharmacy Electronically, [facility]., 176, cm, 08/17/22 14:18:00 EDT, Height [...] mL, 5 Refills, Maintenance, 05/27/23 8:16:00 EST, [facility], Frisianlabel, 176, cm, 05/25/23 15:45:00 EST, Height Start [...] 11:45:00 EDT, Route to Pharmacy Electronically, [facility], Partial fill upon patient request if the prescription is for a schedule II opi... Start Date: 08/09/22 Status: Ordered losartan 50 mg oral tablet 1 tablet = 50 mg, By Mouth, Daily, # 90 tablet, 1 Refills, Maintenance, 10/17/22 16:21:00 EDT, [facility], 176, cm, 09/19/22 13:07:00 EDT, Height [...] 08/26/22 Stop Date: 09/02/22 Status: Ordered Pen [place], 31 G x 5 mm BD Ultra [...] 1 Refills, Maintenance, 08/25/22 18:29:00 EDT, [facility]ol, [facility] Partial fill upon patient request if the prescription is for a schedule II opioid drug., 176, cm, 08/17/22 14:18:00 EDT... Start Date: 08/25/22 Status: Ordered traZODone 150 mg oral tablet 1 tablet = 150 mg, By Mouth, Daily at bedtime, # 90 tablet, 0 Refills, Maintenance, 08/09/22 13:00:00 EDT, Tablet, [facility] Partial fill upon patient request [...] Gm, 0 Refills,Maintenance, 08/25/22 18:29:00 EDT, Inhaler, [facility] Partial fill upon patient request if the prescription is for a schedule II opi... Start Date: 08/25/22 Status: Ordered ziprasidone 40 mg oral capsule 1 capsule = 40 mg, By Mouth, Daily in AM, # 90 each, 0 Refills, Maintenance, 08/09/22 13:01:00 EDT,Capsule, [facility] Partial fill upon patient request if the prescription is for aschedule II opioid drug., 176, cm, 08/04/22 16:02:0... Start Date: 08/09/22 Status: Ordered ziprasidone 80 mg oral capsule 1 capsule = 80 mg, By Mouth, Daily at supper, # 90 each, 0 Refills, Maintenance, 08/09/22 13:01:00 EDT, [facility] Partial fill upon patient request [...] 2016 2information and [facility] 09-09-2020 note 3per note - CT at outside location 4Completed a colonoscopy 2020 and had a cecum polyp. Biopsy tubular adenoma. repeat colonoscopy 7 years Social History Social History Type Response Smoking Status Never smoker entered on: 03/12/18 Sex Patient Care team information Care Team Personnel Name: José López MD, Katrin Ladd Position: [facility] Outreach Member Role: PCP Address: Address: [address] [place] [id number]- Care Team Related Persons Name: MARILU BOYD Address: [place] [address]
--- OUTSIDE RECORDS SUMMARY | 2023-08-22 15:19 | XMS_ITS | Continuity of Care Document ---
Author Organization [facility] Address [address] [place] [address]- Care Team Providers Care Bankruptcy Processor Name Role Phone José López MD, Katrin Ladd Primary Care Jeffrey naik [id number] Date(s): 06/07/23 - 07/07/23 [facility] [address] [place] [address]- [place] Allergies, Adverse Reactions, Alerts Substance Reaction Severity [...] 1 Refills, Maintenance, 08/25/22 18:29:00 EDT, Aerosol, [facility], Partial fill upon patient request if [...] 08/25/22 18:25:00 EDT, Route to Pharmacy Electronically, [facility], Partial fill upon patientrequest if the prescription is for a schedule II op... Start Date: 08/25/22 Status: Ordered aspirin 81 mg oral delayed release tablet 81 mg, 1, tablet, By Mouth, Daily, # 90 tablet, Refills 1, Tot. Refills 1, Maintenance, 08/25/22 18:25:00 EDT, Route to Pharmacy Electronically, [facility], Partial fill upon patient request if the prescription is for a schedule II opi... Start Date: 08/25/22 Status: Ordered atorvastatin 80 mg oral tablet 1 tablet = 80 mg, By Mouth, Daily, # 90 tablet, 1 Refills, Maintenance, 08/25/22 18:25:00 EDT, Tablet, [facility], Partial fill upon patient request if the [...] 08/25/22 18:25:00 EDT, Route to Pharmacy Electronically, [facility], Partial fill upon patient request if the [...] 0, Tot. Refills 0, Maintenance, Dexcom G7 media manager use as directed. e11.9, 09/14/22 [...] 8 Refills, Maintenance, 12/13/22 12:20:00 EDT, Tablet, [facility], Partial fill upon patient request if the prescription is for a schedule II opioid drug., 176, cm, 10/31/22 13:... Start Date: 12/13/22 Status: Ordered ergocalciferol 29079 iu oral capsule 50,000 International_Units, 1, capsule, By Mouth, Every week, # 13 capsule, Refills 0, Tot. Refills0, Maintenance, 09/22/22 9:24:00 EDT, Route to Pharmacy Electronically, [facility],Partial fill upon patient request if the prescripti... Start Date: 09/22/22 Stop Date: 12/21/22 Status: Ordered Eucerin Plus topical lotion 1 application, Topically, 2 times a day, PRN for dry skin, # 180 mL, 0 Refills, Maintenance, 08/26/22 17:33:00 EDT, Lotion, [facility]., Partial fill upon patient request if the prescription is for a schedule II opioid drug., 1 applicat... Start Date: 08/26/22 Status: Ordered fluticasone 50 mcg/inh nasal spray 2 sprays = 100 mcg, Nares, Both, Daily in AM, # 16 Gm, 3 Refills, Maintenance, 08/25/22 18:32:00 EDT, Nasal [place], [facility], Partial fill upon patient request if the [...] 08/26/22 16:04:00 EDT, Route to Pharmacy Electronically, [facility] 176, cm, 08/17/22 14:18:00 EDT, Height [...] mL, 5 Refills, Maintenance, 05/27/23 8:16:00 EST, [facility], Spanishlabel, 176, cm, 05/25/23 15:45:00 EST, Height Start [...] 08/09/22 11:45:00 EDT, Route to Pharmacy Electronically, [facility], Partial fill upon patient request if the prescription is for a schedule II opi... Start Date: 08/09/22 Status: Ordered losartan 50 mg oral tablet 1 tablet = 50 mg, By Mouth, Daily, # 90 tablet, 1 Refills, Maintenance, 10/17/22 16:21:00 EDT, [facility], 176, cm, 09/19/22 13:07:00 EDT, Height Start Date: 10/17/22 Stop Date: 04/15/23 Status: Ordered pantoprazole 40 mg oral delayed release tablet 1 tablet = 40 mg, By Mouth, Daily, # 7 tablet, 0 Refills, Maintenance, 08/26/22 14:59:00 EDT, EC Tablet, 176, cm, 08/17/22 14:18:00 EDT, Height Start Date: 08/26/22 Stop Date: 09/02/22 Status: Ordered Pen [place], 31 G x 5 mm BD Ultra [...] 1 Refills, Maintenance, 08/25/22 18:29:00 EDT, Aerosol, [facility] Partial fill upon patient request if the prescription is for a schedule II opioid drug., 176, cm, 08/17/22 14:18:00 EDT... Start Date: 08/25/22 Status: Ordered traZODone 150 mg oral tablet 1 tablet = 150 mg, By Mouth, Daily at bedtime, # 90 tablet, 0 Refills, Maintenance, 08/09/22 13:00:00 EDT, Tablet, [facility] Partial fill upon patient request if [...] Gm, 0 Refills,Maintenance, 08/25/22 18:29:00 EDT, Inhaler, [facility] Partial fill upon patient request if the prescription is for a schedule II opi... Start Date: 08/25/22 Status: Ordered ziprasidone 40 mg oral capsule 1 capsule = 40 mg, By Mouth, Daily in AM, # 90 each, 0 Refills, Maintenance, 08/09/22 13:01:00 EDT,Capsule, [facility] Partial fill upon patient request if the prescription is for aschedule II opioid drug., 176, cm, 08/04/22 16:02:0... Start Date: 08/09/22 Status: Ordered ziprasidone 80 mg oral capsule 1 capsule = 80 mg, By Mouth, Daily at supper, # 90 each, 0 Refills, Maintenance, 08/09/22 13:01:00 EDT, [facility], Partial fill upon patient request if the [...] 2016 2information and pathology of colonospcy in [facility] 09-09-2020 note 3per note - CT at outside location 4Completed a colonoscopy 2020 and had a cecum polyp. Biopsy tubular adenoma. repeat colonoscopy 7 years Social History Social History Type Response Smoking Status Never smoker entered on: 03/12/18 Sex Patient Care team information Care Team Personnel Name: José López MD, Katrin Ladd Position: [facility] Outreach Member Role: PCP Address: Address: [address] [place] [phone]- Care Team Related Persons Name: BOYD MARILU Address: [place] [address]
--- OUTSIDE RECORDS SUMMARY | 2023-08-22 15:20 | XMS_ITS | Continuity of Care Document ---
Author Organization [facility] Address [address] [place] [address]- Care Team Providers Care Blind Aide Name Role Phone José López MD, Katrin Ladd Primary Care Jeffrey villarealenio Encounter [facility] Date(s): 05/25/23 - 06/24/23 [facility] [address] [place] [id number] Attending Physician: Ani Atkinson Admitting Physician: Ani Atkinson Referring Physician: Admtr, Ani Referring Physician: Sveta Lazaro Allergies, Adverse Reactions, [...] 1 Refills, Maintenance, 08/25/22 18:29:00 EDT, Aerosol, [facility] fill upon patient request [...] 08/25/22 18:25:00 EDT, Route to Pharmacy Electronically, [facility], Partial fill upon patientrequest if the prescription is for a schedule II op... Start Date: 08/25/22 Status: Ordered aspirin 81 mg oral delayed release tablet 81 mg, 1, tablet, By Mouth, Daily, # 90 tablet, Refills 1, Tot. Refills 1, Maintenance, 08/25/22 18:25:00 EDT, Route to Pharmacy Electronically, [facility]., Partial fill upon patient request if the prescription is for a schedule II opi... Start Date: 08/25/22 Status: Ordered atorvastatin 80 mg oral tablet 1 tablet = 80 mg, By Mouth, Daily, # 90 tablet, 1 Refills, Maintenance, 08/25/22 18:25:00 EDT, Tablet, [facility], Partial fill upon patient request [...] 08/25/22 18:25:00 EDT, Route to Pharmacy Electronically, [facility], Partial fill upon patient request [...] 0, Tot. 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 e11.9, 09/14/22 10:15:00 EDT, [...] 8 Refills, Maintenance, 12/13/22 12:20:00 EDT, Tablet, [facility], Partial fill upon patient request if the prescription is for a schedule II opioid drug., 176, cm, 10/31/22 13:... Start Date: 12/13/22 Status: Ordered ergocalciferol 24420 iu oral capsule 50,000 International_Units, 1, capsule, By Mouth, Every week, # 13 capsule, Refills 0, Tot. Refills0, Maintenance, 09/22/22 9:24:00 EDT, Route to Pharmacy Electronically, [facility],Partial fill upon patient request if the prescripti... Start Date: 09/22/22 Stop Date: 12/21/22 Status: Ordered Eucerin Plus topical lotion 1 application, Topically, 2 times a day, PRN for dry skin, # 180 mL, 0 Refills, Maintenance, 08/26/22 17:33:00 EDT, Lotion, [facility], Partial fill upon patient request if the prescription is for a schedule II opioid drug., 1 applicat... Start Date: 08/26/22 Status: Ordered fluticasone 50 mcg/inh nasal spray 2 sprays = 100 mcg, Nares, Both, Daily in AM, # 16 Gm, 3 Refills, Maintenance, 08/25/22 18:32:00 EDT, Nasal [place], [facility], Partial fill upon patient request [...] 08/26/22 16:04:00 EDT, Route to Pharmacy Electronically, [facility], 176, cm, 08/17/22 14:18:00 EDT, Height [...] mL, 5 Refills, Maintenance, 05/27/23 8:16:00 EST, [facility], [facility], 176, cm, 05/25/23 15:45:00 EST, Height Start [...] 08/09/22 11:45:00 EDT, Route to Pharmacy Electronically, [facility], Partial fill upon patient request if the prescription is for a schedule II opi... Start Date: 08/09/22 Status: Ordered losartan 50 mg oral tablet 1 tablet = 50 mg, By Mouth, Daily, # 90 tablet, 1 Refills, Maintenance, 10/17/22 16:21:00 EDT, [facility], 176, cm, 09/19/22 13:07:00 EDT, Height Start Date: 10/17/22 Stop Date: 04/15/23 Status: Ordered pantoprazole 40 mg oral delayed release tablet 1 tablet = 40 mg, By Mouth, Daily, # 7 tablet, 0 Refills, Maintenance, 08/26/22 14:59:00 EDT, EC Tablet, 176, cm, 08/17/22 14:18:00 EDT, Height Start Date: 08/26/22 Stop Date: 09/02/22 Status: Ordered Pen [place], 31 G x 5 mm BD Ultra [...] 1 Refills, Maintenance, 08/25/22 18:29:00 EDT, Aerosol, [facility] Partial fill upon patient request if the prescription is for a schedule II opioid drug., 176, cm, 08/17/22 14:18:00 EDT... Start Date: 08/25/22 Status: Ordered traZODone 150 mg oral tablet 1 tablet = 150 mg, By Mouth, Daily at bedtime, # 90 tablet, 0 Refills, Maintenance, 08/09/22 13:00:00 EDT, Tablet, [facility] Partial fill upon patient [...] Gm, 0 Refills,Maintenance, 08/25/22 18:29:00 EDT, Inhaler, [facility] Partial fill upon patient request if the prescription is for a schedule II opi... Start Date: 08/25/22 Status: Ordered ziprasidone 40 mg oral capsule 1 capsule = 40 mg, By Mouth, Daily in AM, # 90 each, 0 Refills, Maintenance, 08/09/22 13:01:00 EDT,Capsule, [facility]., Partial fill upon patient request if the prescription is for aschedule II opioid drug., 176, cm, 08/04/22 16:02:0... Start Date: 08/09/22 Status: Ordered ziprasidone 80 mg oral capsule 1 capsule = 80 mg, By Mouth, Daily at supper, # 90 each, 0 Refills, Maintenance, 08/09/22 13:01:00 EDT, [facility]., Partial fill upon patient request if [...] 2016 2information and pathology of colonospcy in [facility] 09-09-2020 note 3per note - CT at outside location 4Completed a colonoscopy 2020 and had a cecum polyp. Biopsy tubular adenoma. repeat colonoscopy 7 years Social History Social History Type Response Smoking Status Never smoker entered on: 03/12/18 Sex Patient Care team information Care Team Personnel Name: José López MD, Katrin Ladd Position: [facility] Outreach Member Role: PCP Address: Address: [address] [place] [address]- Care Team Related Persons Name: MARILU BOYD Address: [place] [address]
--- OUTSIDE RECORDS SUMMARY | 2023-08-22 15:20 | XMS_ITS | Continuity of Care Document ---
Author Organization [facility] Address [address] [place] [address]- Care Team Providers Care Cloth Hand Name Role Phone José López MD, Katrin Ladd Primary Care Jeffrey naik [place] [facility] [place]/23 [facility] [address] [place] [id number] Allergies, Adverse Reactions, Alerts Substance [...] 1 Refills, Maintenance, 08/25/22 18:29:00 EDT, Aerosol, [facility], Partial fill upon patient request if the [...] 08/25/22 18:25:00 EDT, Route to Pharmacy Electronically, [facility], Partial fill upon patient request if the prescription is for a schedule II opi... Start Date: 08/25/22 Status: Ordered atorvastatin 80 mg oral tablet 1 tablet = 80 mg, By Mouth, Daily, # 90 tablet, 1 Refills, Maintenance, 08/25/22 18:25:00 EDT, Tablet, [facility], Partial fill upon patient request [...] 08/25/22 18:25:00 EDT, Route to Pharmacy Electronically, [facility], Partial fill upon patient request [...] 0, Tot. 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 e11.9, 09/14/22 10:15:00 EDT, [...] 8 Refills, Maintenance, 12/13/22 12:20:00 EDT, Tablet, [facility], Partial fill upon patient request if the prescription is for a schedule II opioid drug., 176, cm, 10/31/22 13:... Start Date: 12/13/22 Status: Ordered ergocalciferol 14663 iu oral capsule 50,000 International_Units, 1, capsule, By Mouth, Every week, # 13 capsule, Refills 0, Tot. Refills0, Maintenance, 09/22/22 9:24:00 EDT, Route to Pharmacy Electronically, [facility],Partial fill upon patient request if the prescripti... Start Date: 09/22/22 Stop Date: 12/21/22 Status: Ordered Eucerin Plus topical lotion 1 application, Topically, 2 times a day, PRN for dry skin, # 180 mL, 0 Refills, Maintenance, 08/26/22 17:33:00 EDT, Lotion, [facility]., Partial fill upon patient request if the prescription is for a schedule II opioid drug., 1 applicat... Start Date: 08/26/22 Status: Ordered fluticasone 50 mcg/inh nasal spray 2 sprays = 100 mcg, Nares, Both, Daily in AM, # 16 Gm, 3 Refills, Maintenance, 08/25/22 18:32:00 EDT, Nasal [place], [facility]., Partial fill upon patient request if [...] EDT, Route to Pharmacy Electronically, [facility]., 176, cm, 08/17/22 14:18:00 EDT, Height [...] mL, 5 Refills, Maintenance, 05/27/23 8:16:00 EST, [facility], [place], 176, cm, 05/25/23 15:45:00 EST, Height Start [...] 08/09/22 11:45:00 EDT, Route to Pharmacy Electronically, [facility], Partial fill upon patient request if the prescription is for a schedule II opi... Start Date: 08/09/22 Status: Ordered losartan 50 mg oral tablet 1 tablet = 50 mg, By Mouth, Daily, # 90 tablet, 1 Refills, Maintenance, 10/17/22 16:21:00 EDT, [facility]., 176, cm, 09/19/22 13:07:00 EDT, Height [...] 08/26/22 Stop Date: 09/02/22 Status: Ordered Pen [place], 31 G x 5 mm BD Ultra [...] 08/25/22 18:29:00 EDT, Aerosol, [facility]., Partial fill upon patient request if the prescription is for a schedule II opioid drug., 176, cm, 08/17/22 14:18:00 EDT... Start Date: 08/25/22 Status: Ordered traZODone 150 mg oral tablet 1 tablet = 150 mg, By Mouth, Daily at bedtime, # 90 tablet, 0 Refills, Maintenance, 08/09/22 13:00:00 EDT, Tablet, [facility] Partial fill upon [...] Gm, 0 Refills,Maintenance, 08/25/22 18:29:00 EDT, Inhaler, [facility]., Partial fill upon patient request if the prescription is for a schedule II opi... Start Date: 08/25/22 Status: Ordered ziprasidone 40 mg oral capsule 1 capsule = 40 mg, By Mouth, Daily in AM, # 90 each, 0 Refills, Maintenance, 08/09/22 13:01:00 EDT,Capsule, [facility] Partial fill upon patient request if the prescription is for aschedule II opioid drug., 176, cm, 08/04/22 16:02:0... Start Date: 08/09/22 Status: Ordered ziprasidone 80 mg oral capsule 1 capsule = 80 mg, By Mouth, Daily at supper, # 90 each, 0 Refills, Maintenance, 08/09/22 13:01:00 EDT, [facility]., Partial fill upon patient request if [...] 2information and pathology of colonospcy in [facility] 09-09-2020 note 3per note - CT at outside location 4Completed a colonoscopy 2020 and had a cecum polyp. Biopsy tubular adenoma. repeat colonoscopy 7 years Social History Social History Type Response Smoking Status Never smoker entered on: 03/12/18 Sex Patient Care team information Care Team Personnel Name: José López MD, Katrin Ladd Position: [facility] Outreach Member Role: PCP Address: Address: [address] [place] [address]- Care Team Related Persons Name: BOYDMARILU Address: [place] [address]
--- OUTSIDE RECORDS SUMMARY | 2023-08-22 15:20 | XMS_ITS | Continuity of Care Document ---
Author Organization [facility] ter Address [address] [place] [id number]- Care Team Providers Care Ramp Lead Name Role Phone José López MD, Katrin Ladd Primary Care Jeffrey naik En[place] [facility] [place] Date(s): 06/26/23 - 07/26/[address] [address] Attending Physician: Admtr, Ani Admitting Physician: Admtr, Ar8 Referring Physician: Admtr, [...] 1 Refills, Maintenance, 08/25/22 18:29:00 EDT, [facility], [facility] fill upon patient request [...] EDT, Route to Pharmacy Electronically, [facility]., Partial fill upon patientrequest if the prescription is for a schedule II op... Start Date: 08/25/22 Status: Ordered aspirin 81 mg oral delayed release tablet 81 mg, 1, tablet, By Mouth, Daily, # 90 tablet, Refills 1, Tot. Refills 1, Maintenance, 08/25/22 18:25:00 EDT, Route to Pharmacy Electronically, [facility]., Partial fill upon patient request if the prescription is for a schedule II opi... Start Date: 08/25/22 Status: Ordered atorvastatin 80 mg oral tablet 1 tablet = 80 mg, By Mouth, Daily, # 90 tablet, 1 Refills, Maintenance, 08/25/22 18:25:00 EDT, Tablet, [facility]., Partial fill upon patient request if [...] EDT, Route to Pharmacy Electronically, [facility]., Partial fill upon patient request if [...] 0, Tot. 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 e11.9, 09/14/22 10:15:00 EDT, [...] 13:... Start Date: 12/13/22 Status: Ordered ergocalciferol 68207 iu oral capsule 50,000 International_Units, 1, capsule, By Mouth, Every week, # 13 capsule, Refills 0, Tot. Refills0, Maintenance, 09/22/22 9:24:00 EDT, Route to Pharmacy Electronically, [facility],Partial fill upon patient request if the prescripti... Start Date: 09/22/22 Stop Date: 12/21/22 Status: Ordered Eucerin Plus topical lotion 1 application, Topically, 2 times a day, PRN for dry skin, # 180 mL, 0 Refills, Maintenance, 08/26/22 17:33:00 EDT, Lotion, [facility]., Partial fill upon patient request if the prescription is for a schedule II opioid drug., 1 applicat... Start Date: 08/26/22 Status: Ordered fluticasone 50 mcg/inh nasal spray 2 sprays = 100 mcg, Nares, Both, Daily in AM, # 16 Gm, 3 Refills, Maintenance, 08/25/22 18:32:00 EDT, Nasal [place], [facility]., Partial fill upon patient request if [...] 16:04:00 EDT, Route to Pharmacy Electronically, [facility]., 176, cm, 08/17/22 14:18:00 EDT, Height [...] [facility], [facility], 176, cm, 05/25/23 15:45:00 EST, Height Start [...] 08/09/22 11:45:00 EDT, Route to Pharmacy Electronically, [facility], Partial fill upon patient request if the prescription is for a schedule II opi... Start Date: 08/09/22 Status: Ordered losartan 50 mg oral tablet 1 tablet = 50 mg, By Mouth, Daily, # 90 tablet, 1 Refills, Maintenance, 10/17/22 16:21:00 EDT, [facility]., 176, cm, 09/19/22 13:07:00 EDT, Height [...] 08/26/22 Stop Date: 09/02/22 Status: Ordered Pen [place], 31 G x 5 mm BD Ultra [...] Maintenance, 08/25/22 18:29:00 EDT, Aerosol, [facility]., Partial fill upon patient request if the prescription is for a schedule II opioid drug., 176, cm, 08/17/22 14:18:00 EDT... Start Date: 08/25/22 Status: Ordered traZODone 150 mg oral tablet 1 tablet = 150 mg, By Mouth, Daily at bedtime, # 90 tablet, 0 Refills, Maintenance, 08/09/22 13:00:00 EDT, Tablet, [facility] Partial fill upon patient request if [...] Gm, 0 Refills,Maintenance, 08/25/22 18:29:00 EDT, [facility]haler, [facility] Partial fill upon patient request if the prescription is for a schedule II opi... Start Date: 08/25/22 Status: Ordered ziprasidone 40 mg oral capsule 1 capsule = 40 mg, By Mouth, Daily in AM, # 90 each, 0 Refills, Maintenance, 08/09/22 13:01:00 EDT,Capsule, [facility] Partial fill upon patient request if the prescription is for aschedule II opioid drug., 176, cm, 08/04/22 16:02:0... Start Date: 08/09/22 Status: Ordered ziprasidone 80 mg oral capsule 1 capsule = 80 mg, By Mouth, Daily at supper, # 90 each, 0 Refills, Maintenance, 08/09/22 13:01:00 EDT, [facility] Partial fill upon patient [...] 2information and pathology of colonospcy in [facility] 09-09-2020 note 3per note - CT at outside location 4Completed a colonoscopy 2020 and had a cecum polyp. Biopsy tubular adenoma. repeat colonoscopy 7 years Social History Social History Type Response Smoking Status Never smoker entered on: 03/12/18 Sex Patient Care team information Care Team Personnel Name: José López MD, Katrin Ladd Position: [facility] Outreach Member Role: PCP Address: Address: [address] [place] [address]- Care Team Related Persons Name: MARILU BOYD Address: [place] [address]
--- OUTSIDE RECORDS SUMMARY | 2023-08-22 15:20 | XMS_ITS | Continuity of Care Document ---
Author Organization [facility] Address [address] [place] [address]- Care Team Providers Care Real Estate Executive Assistant Name Role Phone José López MD, Katrin Ladd Primary Care Jeffrey naik [place] [facility] [place]23 [facility] [address] [place] [id number] Allergies, Adverse Reactions, Alerts [...] 1 Refills, Maintenance, 08/25/22 18:29:00 EDT, Aerosol, [facility], Partial fill upon patient request if [...] 08/25/22 18:25:00 EDT, Route to Pharmacy Electronically, [facility], Partial fill upon patient request if the prescription is for a schedule II opi... Start Date: 08/25/22 Status: Ordered atorvastatin 80 mg oral tablet 1 tablet = 80 mg, By Mouth, Daily, # 90 tablet, 1 Refills, Maintenance, 08/25/22 18:25:00 EDT, Tablet, [facility], Partial fill upon patient request if [...] 08/25/22 18:25:00 EDT, Route to Pharmacy Electronically, [facility], Partial fill upon patient request if [...] 0, Tot. 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 e11.9, 09/14/22 10:15:00 EDT, [...] 8 Refills, Maintenance, 12/13/22 12:20:00 EDT, Tablet, [facility], Partial fill upon patient request if the prescription is for a schedule II opioid drug., 176, cm, 10/31/22 13:... Start Date: 12/13/22 Status: Ordered ergocalciferol 58948 iu oral capsule 50,000 International_Units, 1, capsule, By Mouth, Every week, # 13 capsule, Refills 0, Tot. Refills0, Maintenance, 09/22/22 9:24:00 EDT, Route to Pharmacy Electronically, [facility],Partial fill upon patient request if the prescripti... Start Date: 09/22/22 Stop Date: 12/21/22 Status: Ordered Eucerin Plus topical lotion 1 application, Topically, 2 times a day, PRN for dry skin, # 180 mL, 0 Refills, Maintenance, 08/26/22 17:33:00 EDT, Lotion, [facility]., Partial fill upon patient request if the prescription is for a schedule II opioid drug., 1 applicat... Start Date: 08/26/22 Status: Ordered fluticasone 50 mcg/inh nasal spray 2 sprays = 100 mcg, Nares, Both, Daily in AM, # 16 Gm, 3 Refills, Maintenance, 08/25/22 18:32:00 EDT, Nasal [place], [facility]., Partial fill upon patient request [...] 08/26/22 16:04:00 EDT, Route to Pharmacy Electronically, [facility]., 176, cm, 08/17/22 14:18:00 EDT, [...] mL, 5 Refills, Maintenance, 05/27/23 8:16:00 EST, [facility], [place], 176, cm, 05/25/23 15:45:00 EST, Height Start [...] 08/09/22 11:45:00 EDT, Route to Pharmacy Electronically, [facility], Partial fill upon patient request if the prescription is for a schedule II opi... Start Date: 08/09/22 Status: Ordered losartan 50 mg oral tablet 1 tablet = 50 mg, By Mouth, Daily, # 90 tablet, 1 Refills, Maintenance, 10/17/22 16:21:00 EDT, [facility]., 176, cm, 09/19/22 13:07:00 EDT, Height [...] 08/26/22 Stop Date: 09/02/22 Status: Ordered Pen [place], 31 G x 5 mm BD Ultra [...] Maintenance, 08/25/22 18:29:00 EDT, Aerosol, [facility]., Partial fill upon patient request if the prescription is for a schedule II opioid drug., 176, cm, 08/17/22 14:18:00 EDT... Start Date: 08/25/22 Status: Ordered traZODone 150 mg oral tablet 1 tablet = 150 mg, By Mouth, Daily at bedtime, # 90 tablet, 0 Refills, Maintenance, 08/09/22 13:00:00 EDT, Tablet, [facility] Partial fill upon patient request [...] Gm, 0 Refills,Maintenance, 08/25/22 18:29:00 EDT, Inhaler, [facility]., Partial fill upon patient request if the prescription is for a schedule II opi... Start Date: 08/25/22 Status: Ordered ziprasidone 40 mg oral capsule 1 capsule = 40 mg, By Mouth, Daily in AM, # 90 each, 0 Refills, Maintenance, 08/09/22 13:01:00 EDT,Capsule, [facility] Partial fill upon patient request if the prescription is for aschedule II opioid drug., 176, cm, 08/04/22 16:02:0... Start Date: 08/09/22 Status: Ordered ziprasidone 80 mg oral capsule 1 capsule = 80 mg, By Mouth, Daily at supper, # 90 each, 0 Refills, Maintenance, 08/09/22 13:01:00 EDT, [facility]., Partial fill upon patient request [...] 2016 2information and pathology of colonospcy in [facility] 09-09-2020 note 3per note - CT at outside location 4Completed a colonoscopy 2020 and had a cecum polyp. Biopsy tubular adenoma. repeat colonoscopy 7 years Social History Social History Type Response Smoking Status Never smoker entered on: 03/12/18 Sex Patient Care team information Care Team Personnel Name: José López MD, Katrin Ladd Position: [facility] Outreach Member Role: PCP Address: Address: [address] [place] [address]- Care Team Related Persons Name: BOYDMARILU Address: [place] [address]
--- OUTSIDE RECORDS SUMMARY | 2023-08-22 15:20 | XMS_ITS | Continuity of Care Document ---
Author Organization [facility] ter Address [address] [place] [address]- Care Team Providers Care Feed Mill Tender Name Role Phone José López MD, Katrin Ladd Primary Care Jeffrey naik Encounter [facility] [place] Date(s): 05/04/23 - 07/26/[address] [address] Attending Physician: Celina Hayes MD [...] 08/25/22 18:29:00 EDT, [facility]erosol, [facility], Partial fill upon patient request if [...] 08/25/22 18:25:00 EDT, Route to Pharmacy Electronically, [facility]., Partial fill upon patientrequest if the prescription is for a schedule II op... Start Date: 08/25/22 Status: Ordered aspirin 81 mg oral delayed release tablet 81 mg, 1, tablet, By Mouth, Daily, # 90 tablet, Refills 1, Tot. Refills 1, Maintenance, 08/25/22 18:25:00 EDT, Route to Pharmacy Electronically, [facility]., Partial fill upon patient request if the prescription is for a schedule II opi... Start Date: 08/25/22 Status: Ordered atorvastatin 80 mg oral tablet 1 tablet = 80 mg, By Mouth, Daily, # 90 tablet, 1 Refills, Maintenance, 08/25/22 18:25:00 EDT, Tablet, [facility]., Partial fill upon patient request [...] 08/25/22 18:25:00 EDT, Route to Pharmacy Electronically, [facility]., Partial fill upon patient request [...] 0, Tot. 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 e11.9, 09/14/22 10:15:00 EDT, [...] 8 Refills, Maintenance, 12/13/22 12:20:00 EDT, Tablet, [facility], Partial fill upon patient request if the prescription is for a schedule II opioid drug., 176, cm, 10/31/22 13:... Start Date: 12/13/22 Status: Ordered ergocalciferol 59902 iu oral capsule 50,000 International_Units, 1, capsule, By Mouth, Every week, # 13 capsule, Refills 0, Tot. Refills0, Maintenance, 09/22/22 9:24:00 EDT, Route to Pharmacy Electronically, [facility],Partial fill upon patient request if the prescripti... Start Date: 09/22/22 Stop Date: 12/21/22 Status: Ordered Eucerin Plus topical lotion 1 application, Topically, 2 times a day, PRN for dry skin, # 180 mL, 0 Refills, Maintenance, 08/26/22 17:33:00 EDT, Lotion, [facility], Partial fill upon patient request if the prescription is for a schedule II opioid drug., 1 applicat... Start Date: 08/26/22 Status: Ordered fluticasone 50 mcg/inh nasal spray 2 sprays = 100 mcg, Nares, Both, Daily in AM, # 16 Gm, 3 Refills, Maintenance, 08/25/22 18:32:00 EDT, Nasal [place], [facility], Partial fill upon patient request [...] 08/26/22 16:04:00 EDT, Route to Pharmacy Electronically, [facility], 176, cm, 08/17/22 14:18:00 EDT, Height [...] mL, 5 Refills, Maintenance, 05/27/23 8:16:00 EST, [facility], [facility], 176, cm, 05/25/23 15:45:00 EST, [...] 08/09/22 11:45:00 EDT, Route to Pharmacy Electronically, [facility], Partial fill upon patient request if the prescription is for a schedule II opi... Start Date: 08/09/22 Status: Ordered losartan 50 mg oral tablet 1 tablet = 50 mg, By Mouth, Daily, # 90 tablet, 1 Refills, Maintenance, 10/17/22 16:21:00 EDT, [facility], 176, cm, 09/19/22 13:07:00 EDT, Height [...] 08/26/22 Stop Date: 09/02/22 Status: Ordered Pen [place], 31 G x 5 mm BD Ultra [...] 1 Refills, Maintenance, 08/25/22 18:29:00 EDT, Aerosol, [facility]., Partial fill upon patient request if the prescription is for a schedule II opioid drug., 176, cm, 08/17/22 14:18:00 EDT... Start Date: 08/25/22 Status: Ordered traZODone 150 mg oral tablet 1 tablet = 150 mg, By Mouth, Daily at bedtime, # 90 tablet, 0 Refills, Maintenance, 08/09/22 13:00:00 EDT, Tablet, [facility]., Partial fill upon patient request [...] Gm, 0 Refills,Maintenance, 08/25/22 18:29:00 EDT, Inhaler, [facility] Partial fill upon patient request if the prescription is for a schedule II opi... Start Date: 08/25/22 Status: Ordered ziprasidone 40 mg oral capsule 1 capsule = 40 mg, By Mouth, Daily in AM, # 90 each, 0 Refills, Maintenance, 08/09/22 13:01:00 EDT,Capsule, [facility] Partial fill upon patient request if the prescription is for aschedule II opioid drug., 176, cm, 08/04/22 16:02:0... Start Date: 08/09/22 Status: Ordered ziprasidone 80 mg oral capsule 1 capsule = 80 mg, By Mouth, Daily at supper, # 90 each, 0 Refills, Maintenance, 08/09/22 13:01:00 EDT, [facility]., Partial fill upon patient request [...] 2016 2information and pathology of colonospcy in [facility] 09-09-2020 note 3per note - CT 11-2021 at outside location 4Completed a colonoscopy 2020 and had a cecum polyp. Biopsy tubular adenoma. repeat colonoscopy 7 years Social History Social History Type Response Smoking Status Never smoker entered on: 03/12/18 Sex Patient Care team information Care Team Personnel Name: José López MD, Katrin Ladd Position: [facility] Outreach Member Role: PCP Address: Address: [address] [place] [address]- Care Team Related Persons Name: MARILU BOYD Address: [place] [address]
[2023-08-22 15:46] LABS: MANUAL DIFF FLAG NO
[2023-08-22 15:48] LABS: Basophils Percent Auto 0.3 % (0-2); Eosinophils Absolute Auto 0.4 X10*3/uL (0.0-0.4); Eosinophils Percent Auto 3.2 % (0-4); Hematocrit 42.9 % (42.0-52.0); Hemoglobin 14.1 g/dl (14.0-18.0); Imm Gran Abs Auto 0.07 X10*3/uL (0.00-0.03); Imm Gran Pct Auto 0.5 % (0.0-0.4); Lymphocytes Percent Auto 29.2 % (20-40); Mean Corpuscular HGB Conc 32.9 g/dl (31.0-36.0); Mean Corpuscular Volume 88.3 fL (80.0-98.0); Mean Platelet Volume 12.4 fL (9.4-12.4); Monocytes Absolute Auto 1.2 X10*3/uL (0.1-1.2); Monocytes Percent Auto 9.2 % (2-11); Neutrophils Absolute Auto 7.8 x10*3/uL (2.0-8.3); Neutrophils Percent Auto 57.6 % (45-73); Platelet Count 277 X10*3/uL (160-400); Red Blood Count 4.86 X10*6/uL (4.60-5.80); Red Cell Distribution Width 13.5 % (11.0-16.0); White Blood Count 13.5 X10*3/uL (4.8-10.8)
[2023-08-22 16:01] LABS: Alanine Aminotransferase 16 U/L (0-40); Albumin Level 3.3 g/dL (3.5-5.0); Alkaline Phosphatase 117 U/L (39-117); Anion Gap 11 (12-20); Aspartate Amino Transferase 12 U/L (5-37); Bilirubin Total 0.3 mg/dL (0.0-1.0); Blood Urea Nitrogen 41 mg/dL (9-16); Calcium 9.2 mg/dL (8.4-10.2); Carbon Dioxide 24 mmol/L (22-29); Chloride 108 mmol/L (96-108); Creatinine Clr Calc Pharmacy 48.7; Estimated Glomerular Filt Rate 32; Glucose Random 214 mg/dL (60-115); Magnesium 2.2 mg/dL (1.6-2.6); Potassium 4.4 mmol/L (3.3-5.1); Sodium 139 mmol/L (135-145); Total Protein 6.5 g/dL (6.5-8.0); Uric Acid 9.4 mg/dL (3.4-7.0)
[2023-08-22 16:07] LABS: B Type Natriuretic Peptide 15 pg/mL (<100)
[2023-08-22] MEDS: 0.9 % Sodium Chloride 1,000 ML 999 ML IV (16:33)
[2023-08-22] MEDS: Acetaminophen 325 MG TABLET 975 MG PO (18:14)
[2023-08-22] MEDS: predniSONE 20 MG TABLET 40 MG PO (18:15)
[2023-08-22 18:45] VITALS: BP 146/86; PULSE 97; RESP 16; TEMP 36.6; O2SAT 95
== END 2023-08-22 18:46 | disposition home or self-care (01) ==
PROVIDERS: Physician Assistant Medical; Emergency Provider Emergency Medicine; PCP Student in an Organized Health Care Education/Training Program
DX: M10.9 Gout, unspecified (principal); I12.9 Hypertensive chronic kidney disease with stage 1 through stage 4 chronic kidney disease, or unspecified chronic kidney disease; E11.22 Type 2 diabetes mellitus with diabetic chronic kidney disease; N18.9 Chronic kidney disease, unspecified; E11.40 Type 2 diabetes mellitus with diabetic neuropathy, unspecified
CPT/HCPCS: 36415; 73564; 80053; 83735; 83880; 84550; 85025; 93971; 99283; 99284

== ENCOUNTER 2023-08-23 12:43 | Outpatient (AMB) | payer MEDICAID, SELFPAY ==
--- NOTE | 2023-08-23 13:03 | MHC.OFFVIS ---
Intake Vital Signs 08/23/23 13:22 Height 5 ft 8 in Weight 249 lb BMI 37.9 BP 100/66 Blood Pressure Location Lt brachial Position Sitting Respiration 14 Pulse 95 Pulse Source Pulse Oximeter Pulse Oximetry (%) 99 Oxygen Delivery Method Room Air Intake Visit Reasons: leg/foot pain Intake Note: Patient comes in for leg and foot pain. Reports pain 10/10. Allergies penicillin V Allergy (Mild, Verified 08/23/23 13:25) Rash Penicillins [PENICILLINS] Allergy (Unknown, Verified 08/23/23 13:25) RASH, DIFFICULTY BREATHING HPI HPI Comments History of Present Illness Details Darrel is back in my office after the denial of the Qutenza procedure by his insurance company. They considered experimental. This is very unfortunate gentleman, he is very upset at the level of care he receives at my office however his anger should be addressed to his insurance company. Seeing him very upset I offered him spinal cord stimulator Nevro to treat the neuropathy of the bilateral lower extremities. However unfortunately this patient is suffering from personality disorder mainly schizoaffective disorder. It remains to be seen whether this patient will be able to pass psychological evaluation. His hemoglobin A1c is 7.5 it has not normal but this is the best he can achieve with current situation. Unfortunately his neuropathy will only increase with time. Prior: complains on intractable pain in bilateral feet more in the left foot and less on the right. He complains now on pain in left foot spreading on the dorsal surface of the foot and into the ankle and lower leg on the lateral side. There is no signs of venous or arterial insufficiency dorsalis pedis pulse is strong. COUNTS INCLUDE 234 BEDS AT THE [facility] Medical History Leukocytosis Memory loss Obesity Idiopathic gout of multiple sites GERD (gastroesophageal reflux disease) Hypertensive chronic kidney disease Secondary hyperparathyroidism, renal Chronic kidney disease Sleep apnea Type 2 diabetes mellitus Schizoaffective disorder Chronic pain syndrome Diabetic polyneuropathy Gout Surgical History No history of previous surgery Family History Father Cancer Diabetes Mother Cancer Diabetes Colon cancer Family/Other Cancer Diabetes Social History Household Members: Spouse Housing: Apartment Do you presently have visiting nurse or other home services: No Alcohol intake: never Patient Tobacco Use Status: Never used Tobacco Review of Systems Const All systems reviewed & are unremarkable except as noted in HPI and below ENT Reports Normal hearing present Neuro Reports Normal hearing present, Denies Abnormal speech present and Denies Sensory deficit (Neuro) Physical Exam Vital Signs: Last Vital Signs Pulse 95 08/23/23 13:22 Resp 14 08/23/23 13:22 BP 100/66 08/23/23 13:22 Pulse Ox 99 08/23/23 13:22 Oxygen Delivery Method Room Air 08/23/23 13:22 BMI result Body Mass Index 37.9 Const General: no acute distress Nutritional Appearance: obese morbidly obese Orientation/consciousness: patient oriented x3 Eyes General: appearance normal, both eyes and all related structures Pupils: Equal, round and reactive pupils present EOM: EOMs intact bilaterally Neck Neck: Yes full ROM Chest Chest palpation & inspection: normal inspection of the chest Resp Effort & Inspection: normal respiratory effort, able to speak in complete sentences, normal respiratory pattern, no audible wheezes and no cough Cardio Jugular venous distension: no JVD GI Inspection: Yes normal to inspection Neuro General: patient oriented x3 and gait normal Cranial nerves: Yes CN's II-XII intact bilaterally, Yes Equal, round and reactive pupils present, Yes Normal hearing present and Yes Ability to bilaterally elevate shoulders present Speech: No Abnormal speech present Gait exam (Neuro): Normal gait present Motor exam (neuro): 5/5 motor strength present throughout Sensory Exam: No Sensory deficit (Neuro) Extrem General: Yes normal to inspection, Yes full ROM and Yes pedal edema Assessment & Plan Assessment & Plan (1) Morbid obesity: Code(s): E66.01 - Morbid (severe) obesity due to excess calories (2) Gout: Code(s): M10.9 - Gout, unspecified (3) Diabetic polyneuropathy: Code(s): E11.42 - Type 2 diabetes mellitus with diabetic polyneuropathy (4) Chronic pain syndrome: Code(s): G89.4 - Chronic pain syndrome (5) Schizoaffective disorder: Code(s): F25.9 - Schizoaffective disorder, unspecified Plan Seeing him very upset with the care he receives in my office I wholeheartedly offered him spinal cord stimulator. His anger to this office is misdirected, it should be to were his insurance company. It is them who did not approve Qutenza procedure for this patient This patient suffers from schizoaffective disorder. Therefore it is very possible that he will not be able to pass the psychological evaluation. Alternative exists for him to switch his insurance company to another one which will approve Qutenza procedure if spinal cord stimulation is not suitable for this patient. Patient Instructions: I here by testify that I spent 38 minutes in conversation with this patient as well as planning his care and organizing this note. permanent mold supervisor from [employer] helped us to facilitate this conversation. Coding Level of Care Code Est Pt Level 4 (24525) Diagnoses Morbid obesity E66.01 Gout M10.9 Diabetic polyneuropathy E11.42 Chronic pain syndrome G89.4 Schizoaffective disorder F25.9
[2023-08-23 13:22] VITALS: BP 100/66; PULSE 95; RESP 14; O2SAT 99; BMI 37.9
== END 2023-08-23 13:45 | disposition home or self-care (01) ==
PROVIDERS: PCP Student in an Organized Health Care Education/Training Program; Referring Provider Student in an Organized Health Care Education/Training Program; Visit Provider Anesthesiology
DX: E66.01 Morbid (severe) obesity due to excess calories (principal); M10.9 Gout, unspecified; E11.42 Type 2 diabetes mellitus with diabetic polyneuropathy; G89.4 Chronic pain syndrome; F25.9 Schizoaffective disorder, unspecified
CPT/HCPCS: 99214

== ENCOUNTER → 2023-08-23 12:43 | Outpatient (BNVA) | payer MEDICAID, SELFPAY | PROVIDERS: PCP Student in an Organized Health Care Education/Training Program; Visit Provider Anesthesiology | DX: G89.4 Chronic pain syndrome (principal); F25.9 Schizoaffective disorder, unspecified; E11.42 Type 2 diabetes mellitus with diabetic polyneuropathy; E66.01 Morbid (severe) obesity due to excess calories; M10.9 Gout, unspecified; Z68.37 Body mass index [BMI] 37.0-37.9, adult | CPT/HCPCS: 99212 ==

== ENCOUNTER 2023-09-19 13:40 | Outpatient (REF) | payer MEDICAID, SELFPAY ==
[2023-09-19 17:34] LABS: Alanine Aminotransferase 25 U/L (0-40); Albumin Level 3.7 g/dL (3.5-5.0); Alkaline Phosphatase 117 U/L (39-117); Anion Gap 16 (12-20); Aspartate Amino Transferase 15 U/L (5-37); Bilirubin Total 0.4 mg/dL (0.0-1.0); Blood Urea Nitrogen 36 mg/dL (9-16); Calcium 10.1 mg/dL (8.4-10.2); Carbon Dioxide 22 mmol/L (22-29); Chloride 102 mmol/L (96-108); Cholesterol 164 mg/dL (<200); Estimated Glomerular Filt Rate 33; Glucose Random 414 mg/dL (60-115); HDL Cholesterol 41 mg/dL (>40); LDL Cholesterol Calculated 60 mg/dL (<100); Potassium 4.5 mmol/L (3.3-5.1); Sodium 135 mmol/L (135-145); Total Protein 7.3 g/dL (6.5-8.0); Triglycerides 316 mg/dL (<150)
[2023-09-19 18:06] LABS: Appearance Urine Clear; Color Urine Yellow; Glucose Urine UA >=1000 mg/dL (Negative); Leukocyte Esterase Urine Negative (Negative); Nitrite Urine Negative (Negative); Specific Gravity - Urine >= 1.030 (1.005-1.025); UMIC TRIGGER UACC YES; Urine Blood Trace (Negative); Urine Ketones Negative (Negative); Urine Protein 300 (3+) mg/dL (Neg-Trace)
[2023-09-19 18:12] LABS: Bacteria Urine None Seen (None Seen); Hyaline Casts Urine 0-2 /LPF (0-2); RBC Urine 0-2 /HPF (0-2); Squamous Epithelial Cell Urine 0-2 /HPF (0-2); WBC Urine 0-5 /HPF (0-5)
== END 2023-09-19 13:41 | disposition home or self-care (01) ==
LOC: HO.HHCL 13:40
PROVIDERS: Visit Provider Student in an Organized Health Care Education/Training Program
DX: E11.22 Type 2 diabetes mellitus with diabetic chronic kidney disease (principal); N18.31 Chronic kidney disease, stage 3a; Z79.4 Long term (current) use of insulin
CPT/HCPCS: 36415; 80053; 80061; 81001

== ENCOUNTER → 2023-09-27 19:30 | Outpatient (REF) | payer MEDICAID, SELFPAY | LOC: HO.SL 19:30 | PROVIDERS: PCP Student in an Organized Health Care Education/Training Program; Visit Provider Nurse Practitioner Family | DX: G47.33 Obstructive sleep apnea (adult) (pediatric) (principal) | CPT/HCPCS: 95811 ==

== ENCOUNTER 2023-10-13 11:57 | Outpatient (REF) | payer MEDICAID, SELFPAY ==
[2023-10-13 13:05] LABS: MANUAL DIFF FLAG NO
[2023-10-13 13:08] LABS: Basophils Absolute Auto 0.1 X10*3/uL (0.0-0.2); Basophils Percent Auto 0.5 % (0-2); Eosinophils Absolute Auto 0.4 X10*3/uL (0.0-0.4); Hematocrit 43.8 % (42.0-52.0); Hemoglobin 14.1 g/dl (14.0-18.0); Imm Gran Abs Auto 0.09 X10*3/uL (0.00-0.03); Imm Gran Pct Auto 0.7 % (0.0-0.4); Lymphocytes Absolute Auto 3.2 X10*3/uL (1.2-4.9); Lymphocytes Percent Auto 25.2 % (20-40); Mean Corpuscular HGB Conc 32.2 g/dl (31.0-36.0); Mean Corpuscular Hemoglobin 28.6 pg (27.0-33.0); Mean Corpuscular Volume 88.8 fL (80.0-98.0); Monocytes Absolute Auto 1.2 X10*3/uL (0.1-1.2); Monocytes Percent Auto 9.6 % (2-11); Neutrophils Absolute Auto 7.8 x10*3/uL (2.0-8.3); Platelet Count 255 X10*3/uL (160-400); Red Blood Count 4.93 X10*6/uL (4.60-5.80); Red Cell Distribution Width 13.5 % (11.0-16.0); White Blood Count 12.8 X10*3/uL (4.8-10.8)
[2023-10-13 13:18] LABS: Lipase 78 U/L (8-78); Uric Acid 8.8 mg/dL (3.4-7.0)
== END 2023-10-13 11:58 | disposition home or self-care (01) ==
LOC: HO.HHCL 11:57
PROVIDERS: Visit Provider Nurse Practitioner Primary Care
DX: M10.30 Gout due to renal impairment, unspecified site (principal); Z87.19 Personal history of other diseases of the digestive system
CPT/HCPCS: 36415; 83690; 84550; 85025

== ENCOUNTER 2023-11-07 12:07 | Emergency (ER) | payer MEDICAID, SELFPAY ==
[2023-11-07] VITALS (9 sets, daily range): BP systolic 109–174; BP diastolic 79–97; PULSE 87–101; RESP 12–20; TEMP 35.9–36.9; O2SAT 94–97; BMI 36.6
--- NOTE | ~2023-11-07 | XR_ITS ---
EXAMINATION: XR CHEST CLINICAL INFORMATION: Chest pain COMPARISON: CT chest 04/07/2023 TECHNIQUE: 2 views of the chest were obtained. FINDINGS: No significant abnormality is noted involving the heart, lungs, mediastinum, bony thorax or soft tissues. XR/XR chest 2V IMPRESSION: Unremarkable examination.
--- NOTE | 2023-11-07 12:10 | ECG_ITS ---
Test Reason : hbp,dizziness Blood Pressure : / mmHG Vent. Rate : 086 BPM Atrial Rate : 086 BPM P-R Int : 142 ms QRS Dur : 078 ms QT Int : 358 ms P-R-T Axes : 048 -27 021 degrees QTc Int : 428 ms Normal sinus rhythm Normal ECG When compared with ECG of 13-JAN-2023 15:59, No significant change was found Referred By: Pooja Liz Electronically Signed By:MANSOOR PROCTOR
--- NOTE | 2023-11-07 12:17 | ED_ITS ---
HPI - General Adult General Chief complaint: Chest Pain Stated complaint: CHEST PAIN/HBP Time Seen by Provider: 11/07/23 13:05 Source: patient, RN notes reviewed and old records reviewed Mode of arrival: ambulatory History of Present Illness ED Provider: Delaney Avelar PA-C HPI narrative: 53-year-old [place] Islander-speaking male with a past medical history of obesity, gout, GERD, CKD, HTN, sleep apnea, diabetes, schizoaffective, presenting to the ED complaining of dizziness described as feeling like on a boat, chest pressure, SOB, and nausea since 04:00AM. Chest pressure described as squeezing/tightness, denies chest pain at present. Reports dizziness is intermittent, worse with movement/position changes, resolved with being still. 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) carvedilol 25 mg tablet 25 mg PO BID 11/09/22 06/15/23 dulaglutide 4.5 mg/0.5 mL 4.5 mg subcut QWEEK 11/09/22 06/15/23 subcutaneous pen injector (Trulicity) empagliflozin 25 mg tablet 25 mg PO DAILY 11/09/22 06/15/23 furosemide 80 mg tablet 80 mg PO BID 11/09/22 06/15/23 gabapentin 800 mg tablet 800 mg PO DAILY 11/09/22 06/15/23 insulin regular hum U-500 conc 500 140 unit subcut DAILY@1200 11/09/22 06/15/23 unit/mL subcutaneous soln (Humulin R U-500 (Concentrated) Insulin) pantoprazole 40 mg tablet,delayed 40 mg PO DAILY 11/09/22 06/15/23 release trazodone 150 mg tablet 150 mg PO BEDTIME PRN Sleep 11/09/22 06/15/23 acetaminophen 500 mg tablet 1,000 mg PO Q6H PRN fever 06/08/23 06/15/23 albuterol sulfate 2.5 mg/3 mL 2.5 mg inhalation Q6H PRN wheezing 06/08/23 06/15/23 (0.083 %) solution for nebulization amlodipine 2.5 mg tablet 2.5 mg PO QAM 06/08/23 06/15/23 aspirin 81 mg chewable tablet 1 tab PO QAM 06/08/23 06/15/23 atorvastatin 80 mg tablet 80 mg PO DAILY 06/08/23 06/15/23 calcium carbonate (Calcium Antacid) 400 mg PO QAM 06/08/23 06/15/23 carboxymethylcellulose sodium 0.5 1 drp ophthalmic (eye) NEEDED 06/08/23 06/15/23 % eye drops in a dropperette dry eyes (Lubricant Eye Drops) cholecalciferol (vitamin D3) 50 50 mcg PO QAM 06/08/23 06/15/23 mcg (2,000 unit) tablet clonazepam 0.5 mg tablet 0.5 mg PO TID 06/08/23 06/15/23 divalproex 500 mg tablet,extended 1,000 mg PO BEDTIME 06/08/23 06/15/23 release 24 hr (Depakote ER) ezetimibe 10 mg tablet 10 mg PO QAM 06/08/23 06/15/23 gabapentin 600 mg tablet 600 mg PO BID 06/08/23 06/15/23 insulin regular hum U-500 conc 500 135 unit subcut DAILY@0730 06/08/23 06/15/23 unit/mL(3 mL) subcut pen (Humulin R U-500 (Conc) Insulin Kwikpen) insulin regular hum U-500 conc 500 140 unit subcut DAILY@1730 06/08/23 06/15/23 unit/mL(3 mL) subcut pen (Humulin R U-500 (Conc) Insulin Kwikpen) lidocaine 5 % topical patch 1 patch topical DAILY PRN Pain 06/08/23 06/15/23 omega-3 300 mg-dha 120 mg-epa 180 1 cap PO BID 06/08/23 06/15/23 mg-fish oil 1,000 mg capsule tiotropium bromide 1.25 2 puff inhalation QAM 06/08/23 06/15/23 mcg/actuation mist for inhalation (Spiriva Respimat) tramadol 50 mg tablet 50 mg PO Q8H PRN severe pain 06/08/23 06/15/23 ziprasidone HCl 80 mg capsule 80 mg PO BEDTIME 06/08/23 06/15/23 (Darlyn) blood-glucose sensor (Dexcom G7 #1 ea 07/28/23 Sensor device) fluticasone propionate 230 2 puff inhalation 07/28/23 mcg-salmeterol 21 mcg/actuation HFA inhaler (Advair HFA) losartan 100 mg tablet 100 mg PO QAM 07/28/23 pen needle, diabetic 31 gauge x #1,200 ea 07/28/23/16 (BD Ultra-Fine Mini Pen Needle) Previous Rx's ?Medication ?Instructions ?Recorded doxycycline hyclate 100 mg tablet 100 mg PO BID #14 tabs 06/15/23 sodium,potassium,mag sulfates 17.5 See Rx Instructions PO .COMPLEX 07/28/23 gram-3.13 gram-1.6 gram oral soln #354 mL (Suprep Bowel Prep Kit) prednisone 20 mg tablet 40 mg (2 x 20 mg) PO DAILY 7 days 08/22/23 #14 tabs meclizine 25 mg tablet 25 mg PO TID PRN dizziness #14 tabs 11/07/23 Allergies Allergy/AdvReac Type Severity Reaction Status Date / Time penicillin V Allergy Mild Rash Verified 11/07/23 12:24 Penicillins [PENICILLINS] Allergy Unknown RASH, Verified 11/07/23 12:24 DIFFICULTY BREATHING Review of Systems 2 Review of Systems: Constitutional: No Fever, No Chills ENT/Mouth: No Ear Pain, No Nasal Congestion, No sore throat, No Rhinorrhea, No Swallowing Difficulty Cardiovascular: + Chest Pain, +SOB Respiratory: No Cough, No Sputum, No Wheezing Gastrointestinal: + Nausea, No Vomiting, No Diarrhea, No Constipation, No Abdominal pain Genitourinary: No Dysuria, No Urinary Frequency, No Hematuria, No Urinary Incontinence/retention, No Flank Pain Musculoskeletal: No joint pain, No Myalgias, No Joint Swelling Skin: No Skin Lesions, No rash Neuro: No Weakness, No Numbness, No Paresthesias, + dizziness Yes all other systems are reviewed and are negative Constitutional: Constitutional: Reports as per HPI Neurologic: Denies Abnormal speech present [facility] Past Medical History Attestation statement: The following information was validated with the patient. Source: old records reviewed Medical History Leukocytosis Memory loss Obesity Idiopathic gout of multiple sites GERD (gastroesophageal reflux disease) Hypertensive chronic kidney disease Secondary hyperparathyroidism, renal Chronic kidney disease Sleep apnea Type 2 diabetes mellitus Schizoaffective disorder Chronic pain syndrome Diabetic polyneuropathy Gout Surgical History No history of previous surgery Family History Family History Father Cancer Diabetes Mother Cancer Diabetes Colon cancer Family/Other Cancer Diabetes Social History Social History Household Members: Spouse Housing: Apartment Do you presently have visiting nurse or other home services: No Alcohol intake: never Patient Tobacco Use Status: Never used Tobacco Advance Directives: No Advance Directives Information Provided: No Do you have a plan to hurt others: No Plan Physical Exam ED Vital Signs: Vital Signs - 24 hr 11/07/23 12:17 11/07/23 13:19 11/07/23 15:32 Temperature 96.6 F L 98.3 F Pulse Rate 87 88 91 Respiratory Rate 18 12 Blood Pressure 110/80 147/97 H 135/96 H Pulse Oximetry 96 97 Oxygen Delivery Method Room Air Room Air 11/07/23 15:33 11/07/23 15:34 11/07/23 15:47 Temperature 97.8 F Pulse Rate 95 94 97 Respiratory Rate 20 Blood Pressure 110/82 109/79 109/79 Pulse Oximetry 94 Oxygen Delivery Method Room Air BMI result Body Mass Index 36.6 Const General: cooperative, healthy appearing and no acute distress Orientation/consciousness: patient oriented x3 Limitations: no limitations [facility] Head: Yes normal to inspection and Yes atraumatic Ears: hearing grossly normal bilaterally General nose exam: Normal external nose present Face and sinus: Yes normal facial exam Eyes General: appearance normal, both eyes and all related structures EOM: EOMs intact bilaterally Neck Neck: Yes normal visual inspection and Yes no meningeal signs Resp Effort & Inspection: normal respiratory effort and no respiratory distress Auscultation: clear to auscultation bilaterally, no crackles, no rhonchi and no wheezes Cardio Rate: regular rate Heart sounds: S1 normal heart sound present and S2 normal heart sound present GI Inspection: Yes normal to inspection Palpation (GI): Soft to palpation, nontender, no guarding and not rigid General: Yes no CVA tenderness Back/Spine/Pelvis Back: no CVA tenderness Skin Rashes: no rashes Wounds: no wounds Neuro General: patient oriented x3, tone normal, moves all extremities, no meningeal signs, no focal motor deficits and CN's II-XI intact bilaterally Cranial nerves: Yes CN's II-XII intact bilaterally and Yes Nystagmus not present Cognition (Neuro): normal cognition Speech: No Abnormal speech present Gait exam (Neuro): Normal gait present Motor exam (neuro): 5/5 motor strength present throughout, Pronator motor function not present and no tremor noted Extrem General: Yes normal to inspection and Yes pedal edema (1+ bilaterally ) Course Course Course Narrative: This is a rapid medical exam performed by Blanca Liz NP: Additional HPI, ROS, PE not included below will be deferred to primary provider. Patient is a 53-year-old [place] Islander speaking male with history of T2DM, obesity, REGI, schizoaffective disorder presenting to the ED with complaint of dizziness since last night, high BP this morning, chest pressure. Took his BP meds this am. BP 110/80, HR 87 in triage. Nausea and vomiting. Plan: EKG, labs, CXR -1338--leukocytosis 14.1, acute on chronic. Acute on chronic CKD. Troponin 9.5 > will obtain 3 hour repeat -on re-evaluation patient admits dizziness has resolved after p.o. 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 pending repeat troponin, repeat BMP, repeat orthostatics and dispo pending results Medications Administered Discontinued Medications Generic Name Dose Route Start Last Admin Trade Name Freq PRN Reason Stop Dose Admin Sodium Chloride 500 mls @ 999 mls/hr 11/07/23 13:45 11/07/23 14:50 Ns IV 11/07/23 14:15 Infused .Q31M DAMIAN Infusion Meclizine HCl 25 mg 11/07/23 13:21 11/07/23 14:05 Meclizine Hcl 25 Mg Tablet PO 11/07/23 13:22 25 mg ONCE ONE Administration Ondansetron HCl 4 mg 11/07/23 13:23 07/02/24 14:05 Ondansetron Hcl 4 Mg/2 Ml Vial IVPUSH 11/07/23 13:24 4 mg ONCE ONE Administration Medical Decision Making Medical Decision Making [facility] Narrative: 53-year-old [place] Islander-speaking male with a past medical history of obesity, gout, GERD, CKD, HTN, sleep apnea, diabetes, schizoaffective, presenting to the ED complaining of dizziness described as feeling like on a boat, chest pressure, SOB, and nausea since 04:00AM. On exam vital signs stable, NAD, nontoxic appearing, dizziness elicited on position change, resolved with lying still. No nystagmus. Lungs CTA. 1+ bilateral LE pitting edema. Abdomen soft and nontender. Concern for ACS vs BPPV vs CHF. Rule out metabolic/infectious etiology. Lower suspicion for CVA/TIA or ICH. Unlikely dissection/PE Plan: EKG, labs, UA, CXR, orthostatics, viral studies, p.o. meclizine/Zofran and re-evaluate Please refer to course for remaining clinical decision making, interpretation of labs/imaging results, and discussions with consultants and/or family members. Differential Diagnosis Differential Diagnoses: The differential diagnosis associated with the presentation includes As above Admission/Observation Consideration of admission/observation: Escalation of care including admission/observation considered Lab Data [facility] Lab Attestation statement: I reviewed the patient's lab results. 11/07/23 12:31 11/07/23 12:31 Labs: Lab Results 11/07/23 11/07/23 Range/Units 12:31 15:52 WBC 14.1 H (4.8-10.8) X10*3/uL RBC 4.87 (4.60-5.80) X10*6/uL Hgb 14.1 (14.0-18.0) g/dl Hct 42.4 (42.0-52.0) % MCV 87.1 (80.0-98.0) fL MCH 29.0 (27.0-33.0) pg MCHC 33.3 (31.0-36.0) g/dl RDW 13.6 (11.0-16.0) % Plt Count 281 (160-400) X10*3/uL MPV 12.2 (9.4-12.4) fL Immature Gran % (Auto) 0.5 H (0.0-0.4) % Neut % (Auto) 70.5 (45-73) % Lymph % (Auto) 17.7 L (20-40) % [place] % (Auto) 8.4 (2-11) % Eos % (Auto) 2.5 (0-4) % Baso % (Auto) 0.4 (0-2) % Lymph # (Auto) 2.5 (1.2-4.9) X10*3/uL [place] # (Auto) 1.2 (0.1-1.2) X10*3/uL Eos # (Auto) 0.4 (0.0-0.4) X10*3/uL Baso # (Auto) 0.1 (0.0-0.2) X10*3/uL Abs Immat Gran (auto) 0.07 H (0.00-0.03) X10*3/uL Absolute Neuts (auto) 9.9 H (2.0-8.3) x10*3/uL Absolute Nucleated RBC 0.000 (0.0-0.012) X10*3/uL Nucleated RBC % (auto) 0.0 (0.0-0.2) /100WBC PT 10.6 L (11.1-13.3) SEC INR 0.9 (0.9-1.1) Sodium 138 (135-145) mmol/L Potassium 3.8 (3.3-5.1) mmol/L Chloride 102 (96-108) mmol/L Carbon Dioxide 25 (22-29) mmol/L Anion Gap 15 (12-20) BUN 50 H (9-16) mg/dL Creatinine 2.57 H (0.5-1.4) mg/dL Estim Creat Clear Calc 39.8 Estimated GFR 26 POC Glucose 97 (60-115) mg/dL Random Glucose 193 H (60-115) mg/dL Calcium 9.8 (8.4-10.2) mg/dL Magnesium 2.3 (1.6-2.6) mg/dL Total Bilirubin 0.4 (0.0-1.0) mg/dL Direct Bilirubin 0.1 (0.0-0.5) mg/dL AST 13 (5-37) U/L ALT 19 (0-40) U/L Alkaline Phosphatase 119 H (39-117) U/L Total Creatine Kinase 213 H (38-174) U/L Troponin I High Sens 9.5 (<3.5-35.0) ng/L B-Natriuretic Peptide < 10 (<100) pg/mL Total Protein 7.9 (6.5-8.0) g/dL Albumin 4.2 (3.5-5.0) g/dL Influenza Type A (PCR) NEGATIVE (Negative) Influenza Type B (PCR) NEGATIVE (Negative) RSV RNA Qual (PCR) NEGATIVE (Negative) SARS-CoV-2 RNA (RT-PCR) NEGATIVE (Negative) Independent Interpretation I performed an independent interpretation of an: EKG and Plain X-Ray Radiology Impression Discussion of test interpretation with radiology: I have reviewed the radiologist's reading. Independent Historian Clinical information obtained from an independent historian. History obtained from or confirmed by: Spouse External Record Review External record reviewed: Inpatient record, Office record, Outpatient record, Prior outpatient labs, Prior outpatient radiology, Primary care record and Outside ED record Tests considered The following testing was considered but not selected: As above Prescription Management I considered prescription management with: Pain Medication Chronic Conditions Patient?s care impacted by: Diabetes and Hypertension Critical Care Time Critical Care Time Critical Care Time: Yes Total Critical Care Time: 35 Attestation: I have personally provided critical care time exclusive of time spent on separately billable procedures. Time includes review of lab data, radiology results, discussion with consultants, and monitoring for potential decompensation. Intervention performed as documented. Discharge Plan Discharge Clinical Impression: Chest pain, Dizziness, Orthostasis Patient Disposition: Still a Patient Prescriptions: New meclizine 25 mg tablet 25 mg PO TID PRN (Reason: dizziness) Qty: 14 0RF No Action ziprasidone HCl [Geodon] 80 mg capsule 80 mg PO BEDTIME atorvastatin 80 mg tablet 80 mg PO DAILY albuterol sulfate 2.5 mg /3 mL (0.083 %) solution for nebulization 2.5 mg inhalation Q6H PRN (Reason: wheezing) clonazepam 0.5 mg tablet 0.5 mg PO TID amlodipine 2.5 mg tablet 2.5 mg PO QAM tramadol 50 mg tablet 50 mg PO Q8H PRN (Reason: severe pain) acetaminophen 500 mg tablet 1,000 mg PO Q6H PRN (Reason: fever) divalproex [Depakote ER] 500 mg tablet extended release 24 hr 1,000 mg PO BEDTIME lidocaine 5 % adhesive patch,medicated 1 patch topical DAILY PRN (Reason: Pain) calcium carbonate [Calcium Antacid] 200 mg calcium (500 mg) tablet,chewable 400 mg PO QAM ezetimibe 10 mg tablet 10 mg PO QAM carboxymethylcellulose sodium [Lubricant Eye Drops] 0.5 % dropperette 1 drp ophthalmic (eye) NEEDED cholecalciferol (vitamin D3) 50 mcg (2,000 unit) tablet 50 mcg PO QAM Spiriva Respimat 1.25 mcg/actuation mist 2 puff INHALATION QAM omega 8-lty-ztx-fish oil 300 mg (120 mg- 180mg)-1,000 mg capsule 1 cap PO BID aspirin 81 mg tablet,chewable 1 tab PO QAM gabapentin 600 mg tablet 600 mg PO BID Humulin R U-500 (Conc) Kwikpen 500 unit/mL (3 mL) insulin pen 140 unit subcut DAILY@1730 Rx Instructions: hold if BS < 100 Humulin R U-500 (Conc) Kwikpen 500 unit/mL (3 mL) insulin pen 135 unit subcut DAILY@0730 Rx Instructions: hold if BS < 100 prednisone 20 mg tablet 40 mg PO DAILY 7 Days Qty: 14 0RF gabapentin 800 mg tablet 800 mg PO DAILY Trulicity 4.5 mg/0.5 mL pen injector 4.5 mg subcut QWEEK trazodone 150 mg tablet 150 mg PO BEDTIME PRN (Reason: Sleep) Humulin R U-500 (Conc) Insulin 500 unit/mL solution 140 unit subcut DAILY@1200 Rx Instructions: hold if BS < 100 pantoprazole 40 mg tablet,delayed release (DR/EC) 40 mg PO DAILY furosemide 80 mg tablet 80 mg PO BID empagliflozin 25 mg tablet 25 mg PO DAILY carvedilol 25 mg tablet 25 mg PO BID Rx Instructions: must administer with a meal/food allopurinol 100 mg tablet 50 mg PO DAILY (DME) 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 See Rx Instructions .Route Rx Instructions: As directed fluticasone propion-salmeterol [Advair HFA] 230-21 mcg/actuation HFA aerosol inhaler 2 puff inhalation losartan 100 mg tablet 100 mg PO QAM (DME) Dexcom G7 Sensor Device See Rx Instructions .ROUTE QWEEK Qty: 1 Rx Instructions: As directed (DME) pen needle, diabetic [BD Ultra-Fine Mini Pen Needle] 31 gauge x 3/16 needle See Rx Instructions .ROUTE DIRECTED Qty: 1200 Rx Instructions: As directed sodium,potassium,mag sulfates [Suprep Bowel Prep Kit] 17.5-3.13-1.6 gram recon soln See Rx Instructions PO .COMPLEX Qty: 354 0RF Rx Instructions: DILUTE; drink 1/2 at 6-8 pm and half at 11 PM- 1AM doxycycline hyclate 100 mg tablet 100 mg PO BID Qty: 14 0RF Print Language: [place] Islander
--- NOTE | 2023-11-07 12:30 | PC.NURSE ---
a&ox4. vss and up to date. 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 pt presents to the ED w/ sudden onset sternal chest pain/sob/dizziness that started at 0400 this morning. pt verbalizing sx woke him up from his sleep. pt states dizziness sx worsen w/ movement and he feels like he is on a boat. denies any change in vision/feeling lightheaded. no sob/wob noted. respirations even/unlabored. plan of care ongoing. call hurtado placed within reach.
[2023-11-07 12:38] LABS: Basophils Absolute Auto 0.1 X10*3/uL (0.0-0.2); Basophils Percent Auto 0.4 % (0-2); Eosinophils Absolute Auto 0.4 X10*3/uL (0.0-0.4); Eosinophils Percent Auto 2.5 % (0-4); Hematocrit 42.4 % (42.0-52.0); Hemoglobin 14.1 g/dl (14.0-18.0); Imm Gran Abs Auto 0.07 X10*3/uL (0.00-0.03); Imm Gran Pct Auto 0.5 % (0.0-0.4); Lymphocytes Absolute Auto 2.5 X10*3/uL (1.2-4.9); Lymphocytes Percent Auto 17.7 % (20-40); MANUAL DIFF FLAG NO; Mean Corpuscular HGB Conc 33.3 g/dl (31.0-36.0); Mean Corpuscular Volume 87.1 fL (80.0-98.0); Mean Platelet Volume 12.2 fL (9.4-12.4); Monocytes Absolute Auto 1.2 X10*3/uL (0.1-1.2); Monocytes Percent Auto 8.4 % (2-11); Neutrophils Absolute Auto 9.9 x10*3/uL (2.0-8.3); Neutrophils Percent Auto 70.5 % (45-73); Platelet Count 281 X10*3/uL (160-400); Red Blood Count 4.87 X10*6/uL (4.60-5.80); Red Cell Distribution Width 13.6 % (11.0-16.0); White Blood Count 14.1 X10*3/uL (4.8-10.8)
[2023-11-07 12:43] LABS: INTERNATIONAL NORM RATIO 0.9 (0.9-1.1); Prothrombin Time 10.6 SEC (11.1-13.3)
[2023-11-07 12:58] LABS: Alanine Aminotransferase 19 U/L (0-40); Albumin Level 4.2 g/dL (3.5-5.0); Alkaline Phosphatase 119 U/L (39-117); Anion Gap 15 (12-20); Aspartate Amino Transferase 13 U/L (5-37); Bilirubin Total 0.4 mg/dL (0.0-1.0); Blood Urea Nitrogen 50 mg/dL (9-16); Calcium 9.8 mg/dL (8.4-10.2); Carbon Dioxide 25 mmol/L (22-29); Chloride 102 mmol/L (96-108); Creatinine Clr Calc Pharmacy 39.8; Estimated Glomerular Filt Rate 26; Glucose Random 193 mg/dL (60-115); Potassium 3.8 mmol/L (3.3-5.1); Sodium 138 mmol/L (135-145); Total Protein 7.9 g/dL (6.5-8.0)
[2023-11-07 13:05] LABS: Troponin-I High Sensitivity 9.5 ng/L (<3.5-35.0)
[2023-11-07 13:16] LABS: Influenza A PCR NEGATIVE (Negative); Influenza B PCR NEGATIVE (Negative); Resp Syncy Virus RNA Qual PCR NEGATIVE (Negative); SARS COV2 PCR INHOUSE NEGATIVE (Negative)
--- OUTSIDE RECORDS SUMMARY | 2023-11-07 13:33 | XMS_ITS | Continuity of Care Document ---
Author Organization [facility] Diabetes Address [address] [place] [address]- Care Team Providers Care Boat Camp Operator Name Role Phone José López MD, Katrin Ladd Primary Care Jeffrey naik Encounter [facility] [place] Date(s): 09/11/23 - 10/11/23 [facility] Endocrinology and Diabetes [address] [place] [id number] Allergies, Adverse Reactions, Alerts Substance [...] 1 Refills, Maintenance, 08/25/22 18:29:00 EDT, Aerosol, [facility], Partial fill upon patient request [...] 08/25/22 18:25:00 EDT, Route to Pharmacy Electronically, [facility], Partial fill upon patient request if the prescription is for a schedule II opi... Start Date: 08/25/22 Status: Ordered atorvastatin 80 mg oral tablet 1 tablet = 80 mg, By Mouth, Daily, # 90 tablet, 1 Refills, Maintenance, 08/25/22 18:25:00 EDT, Tablet, [facility], Partial fill upon patient request if [...] 08/25/22 18:25:00 EDT, Route to Pharmacy Electronically, [facility], Partial fill upon patient request if [...] EDT, Supply Start Date: 08/17/22 Status: Ordered dexamethasone 1 mg oral tablet 1 tablet = 1 mg, By Mouth, Once, to be taken at 11pm, # 1 tablet, 0 Refills, Soft Stop, 09/15/23 12:07:00 EDT, [facility], Partial fill upon patient request if the prescription isfor a schedule II opioid drug., 176, cm, 09/15/23 1... Start Date: 09/15/23 Status: Ordered DEXCOM G7 RECIEVER DEXCOM G7 RECIEVER, See Instructions, # 1 each, Refills 0, Tot. Refills 0, Maintenance, Dexcom G7 latex foam worker use as directed. e11.9, 09/14/22 10:15:00 EDT, [...] 8 Refills, Maintenance, 12/13/22 12:20:00 EDT, Tablet, [facility], Partial fill upon patient request if the prescription is for a schedule II opioid drug., 176, cm, 10/31/22 13:... Start Date: 12/13/22 Status: Ordered ergocalciferol 18656 iu oral capsule 50,000 International_Units, 1, capsule, By Mouth, Every week, # 13 capsule, Refills 0, Tot. Refills0, Maintenance, 09/22/22 9:24:00 EDT, Route to Pharmacy Electronically, [facility],Partial fill upon patient request if the prescripti... Start Date: 09/22/22 Stop Date: 12/21/22 Status: Ordered Eucerin Plus topical lotion 1 application, Topically, 2 times a day, PRN for dry skin, # 180 mL, 0 Refills, Maintenance, 08/26/22 17:33:00 EDT, Lotion, [facility], Partial fill upon patient request if the prescription is for a schedule II opioid drug., 1 applicat... Start Date: 08/26/22 Status: Ordered fluticasone 50 mcg/inh nasal spray 2 sprays = 100 mcg, Nares, Both, Daily in AM, # 16 Gm, 3 Refills, Maintenance, 08/25/22 18:32:00 EDT, Nasal [place], [facility], Partial fill upon patient request if the prescription isfor a schedule II opioid drug., 2 sprays Nares, Bot... Start Date: 08/25/22 Status: Ordered Freestyle Lancets See Instructions, # 200 each, Refills 6, Tot. Refills 6, Maintenance, Use 4xday to check blood glucose Duration lifetime Dx E11.65, 09/13/23 16:38:00 EDT, Supply, 176, cm, 07/18/23 10:57:00 EDT, Height Start Date: 09/13/23 Status: Ordered Freestyle Lite Monitor See Instructions, # 1 each, Maintenance, Use 4xday to check blood glucose Duration lifetime Dx E11.9, 08/31/22 16:23:00 EDT, Supply, 176, cm, 08/26/22 17:00:00 EDT, Height Start Date: 08/31/22 Status: Ordered Freestyle Test Strips See Instructions, # 200 each, Refills 6, Tot. Refills 6, Maintenance, Use 4xday to check blood glucose Duration lifetime Dx E11.65, 09/13/23 16:38:00 EDT, Supply, 176, cm, 07/18/23 10:57:00 EDT, Height Start Date: 09/13/23 Status: Ordered furosemide 80 mg oral tablet 80 mg, 1, tablet, By Mouth, 2 times a day, # 60 tablet, Refills 0, Tot. Refills 0, Maintenance, 08/26/22 16:04:00 EDT, Route to Pharmacy Electronically, [facility] 176, cm, 08/17/22 14:18:00 EDT, Height [...] mL, 5 Refills, Maintenance, 05/27/23 8:16:00 EST, [facility], [facility], 176, cm, 05/25/23 15:45:00 [...] 08/09/22 11:45:00 EDT, Route to Pharmacy Electronically, [facility], Partial fill upon patient request if the prescription is for a schedule II opi... Start Date: 08/09/22 Status: Ordered losartan 50 mg oral tablet 1 tablet = 50 mg, By Mouth, Daily, # 90 tablet, 1 Refills, Maintenance, 10/17/22 16:21:00 EDT, [facility] 176, cm, 09/19/22 13:07:00 EDT, Height Start [...] 08/26/22 Stop Date: 09/02/22 Status: Ordered Pen [place], 31 G x 5 mm BD Ultra [...] 1 Refills, Maintenance, 08/25/22 18:29:00 EDT, Aerosol, [facility]., Partial fill upon patient request if the prescription is for a schedule II opioid drug., 176, cm, 08/17/22 14:18:00 EDT... Start Date: 08/25/22 Status: Ordered traZODone 150 mg oral tablet 1 tablet = 150 mg, By Mouth, Daily at bedtime, # 90 tablet, 0 Refills, Maintenance, 08/09/22 13:00:00 EDT, Tablet, [facility] Partial fill upon patient request if [...] Refills,Maintenance, 08/25/22 18:29:00 EDT, [facility]haler, [facility] Partial fill upon patient request if the prescription is for a schedule II opi... Start Date: 08/25/22 Status: Ordered Vitamin D3 50,000 intl units oral capsule 1 capsule = 1,250 mcg, By Mouth, Every 7 days, # 13 capsule, 0 Refills, Maintenance, 09/15/23 10:57:00 EDT, Capsule, [facility], Partial fill upon patient request if the prescription is for a schedule II opioid drug., 176, cm, 09/05... Start Date: 09/15/23 Stop Date: 12/14/23 Status: Ordered ziprasidone 40 mg oral capsule 1 capsule = 40 mg, By Mouth, Daily in AM, # 90 each, 0 Refills, Maintenance, 08/09/22 13:01:00 EDT,Capsule, [facility]., Partial fill upon patient request if the prescription is for aschedule II opioid drug., 176, cm, 08/04/22 16:02:0... Start Date: 08/09/22 Status: Ordered ziprasidone 80 mg oral capsule 1 capsule = 80 mg, By Mouth, Daily at supper, # 90 each, 0 Refills, Maintenance, 08/09/22 13:01:00 EDT, [facility]., Partial fill upon patient request if [...] 2016 [facility] note 3per note - CT at outside location 4Completed a colonoscopy 2020 and had a cecum polyp. Biopsy tubular adenoma. repeat colonoscopy 7 years Social History Social History Type Response Smoking Status Never smoker entered on: 03/12/18 Sex Patient Care team information Care Team Personnel Name: José López MD, Katrin Ladd Position: [facility] Outreach Member Role: PCP Address: Address: [address] [place] [id number]- Care Team Related Persons Name: MARILU BOYD Address: [place] [address]
--- OUTSIDE RECORDS SUMMARY | 2023-11-07 13:33 | XMS_ITS | Continuity of Care Document ---
Author Organization [facility] Diabetes Address [address] [place] [address]- Care Team Providers Care Service Desk Associate Name Role Phone José López MD, Katrin Ladd Primary Care Jeffrey naik [place] [facility] 07/03[place]23 - 09/24/23 [facility] [address] [place] [id number] Attending Physician: Fiorella Ryder MD Admitting Physician: Aleksey GROSS, Fiorella Referring Physician: José López MD, Katrin Ladd Allergies, Adverse Reactions, Alerts Substance Reaction Severity Status penicillin Active Medications 4-jsoe/nif/pent/doxep 10/8/8/5% 4-jose/nif/pent/doxep 10/8/8/5%, Refills 0, Maintenance, apply for pain - electrical pulse, 08/09/22 13:25:00 EDT, Supply Start Date: 08/09/22 Status: Ordered Advair HFA 230 mcg / 21 mcg 2 puffs, Inhalation, 2 times a day, rinse mouth and throat after each use, # 3 each, 1 Refills, Maintenance, 08/25/22 18:29:00 EDT, [facility]ol[facility], [facility] [...] 08/25/22 18:25:00 EDT, Route to Pharmacy Electronically, [facility]., Partial fill upon patientrequest if the prescription is for a schedule II op... Start Date: 08/25/22 Status: Ordered aspirin 81 mg oral delayed release tablet 81 mg, 1, tablet, By Mouth, Daily, # 90 tablet, Refills 1, Tot. Refills 1, Maintenance, 08/25/22 18:25:00 EDT, Route to Pharmacy Electronically, [facility]., Partial fill upon patient request if the prescription is for a schedule II opi... Start Date: 08/25/22 Status: Ordered atorvastatin 80 mg oral tablet 1 tablet = 80 mg, By Mouth, Daily, # 90 tablet, 1 Refills, Maintenance, 08/25/22 18:25:00 EDT, Tablet, [facility]., Partial fill upon patient request if [...] 08/25/22 18:25:00 EDT, Route to Pharmacy Electronically, [facility]., Partial fill upon patient request if [...] 0 Refills, Soft Stop, 09/15/23 12:07:00 EDT, [facility], Partial fill upon patient request if the prescription isfor a schedule II opioid drug., 176, cm, 09/15/23 1... Start Date: 09/15/23 Status: Ordered DEXCOM G7 RECIEVER DEXCOM G7 RECIEVER, See Instructions, # 1 each, Refills 0, Tot. Refills 0, Maintenance, Dexcom G7 train controller use as directed. e11.9, 09/14/22 10:15:00 EDT, [...] 8 Refills, Maintenance, 12/13/22 12:20:00 EDT, Tablet, [facility], Partial fill upon patient request if the prescription is for a schedule II opioid drug., 176, cm, 10/31/22 13:... Start Date: 12/13/22 Status: Ordered ergocalciferol 79708 iu oral capsule 50,000 International_Units, 1, capsule, By Mouth, Every week, # 13 capsule, Refills 0, Tot. Refills0, Maintenance, 09/22/22 9:24:00 EDT, Route to Pharmacy Electronically, [facility],Partial fill upon patient request if the prescripti... Start Date: 09/22/22 Stop Date: 12/21/22 Status: Ordered Eucerin Plus topical lotion 1 application, Topically, 2 times a day, PRN for dry skin, # 180 mL, 0 Refills, Maintenance, 08/26/22 17:33:00 EDT, Lotion, [facility], Partial fill upon patient request if the prescription is for a schedule II opioid drug., 1 applicat... Start Date: 08/26/22 Status: Ordered fluticasone 50 mcg/inh nasal spray 2 sprays = 100 mcg, Nares, Both, Daily in AM, # 16 Gm, 3 Refills, Maintenance, 08/25/22 18:32:00 EDT, Nasal [place], [facility], Partial fill upon patient request if [...] 08/26/22 16:04:00 EDT, Route to Pharmacy Electronically, [facility], 176, cm, 08/17/22 14:18:00 EDT, Height [...] mL, 5 Refills, Maintenance, 05/27/23 8:16:00 EST, [facility], [facility], 176, cm, 05/25/23 15:45:00 EST, Height [...] 08/09/22 11:45:00 EDT, Route to Pharmacy Electronically, [facility], Partial fill upon patient request if the prescription is for a schedule II opi... Start Date: 08/09/22 Status: Ordered losartan 50 mg oral tablet 1 tablet = 50 mg, By Mouth, Daily, # 90 tablet, 1 Refills, Maintenance, 10/17/22 16:21:00 EDT, [facility] 176, cm, 09/19/22 13:07:00 EDT, Height [...] 08/26/22 Stop Date: 09/02/22 Status: Ordered Pen [place], 31 G x 5 mm BD Ultra [...] 1 Refills, Maintenance, 08/25/22 18:29:00 EDT, Aerosol, [facility] Partial fill upon patient request if the prescription is for a schedule II opioid drug., 176, cm, 08/17/22 14:18:00 EDT... Start Date: 08/25/22 Status: Ordered traZODone 150 mg oral tablet 1 tablet = 150 mg, By Mouth, Daily at bedtime, # 90 tablet, 0 Refills, Maintenance, 08/09/22 13:00:00 EDT, Tablet, [facility] Partial fill upon patient request if the prescription isfor a schedule II opioid drug., saqib Jean, 08/04/22 1... Start Date: 08/09/22 Status: Ordered Triamcinolone 0.1% Dental By Mouth, 0 Refills, Maintenance Start Date: 08/09/22 Status: Ordered Ventolin HFA 108 mcg/inh inhalation aerosol with adapter 2 puffs = 180 mcg, Inhalation, Every 4 hours, PRN Wheezing/Shortness of Breath, # 18 Gm, 0 Refills,Maintenance, 08/25/22 18:29:00 EDT, Inhaler, [facility] Partial fill upon patient request if the prescription is for a schedule II opi... Start Date: 08/25/22 Status: Ordered Vitamin D3 50,000 intl units oral capsule 1 capsule = 1,250 mcg, By Mouth, Every 7 days, # 13 capsule, 0 Refills, Maintenance, 09/15/23 10:57:00 EDT, Capsule, [facility], Partial fill upon patient request if the prescription is for a schedule II opioid drug., saqib Jean, 09/05... Start Date: 09/15/23 Stop Date: 12/14/23 Status: Ordered ziprasidone 40 mg oral capsule 1 capsule = 40 mg, By Mouth, Daily in AM, # 90 each, 0 Refills, Maintenance, 08/09/22 13:01:00 EDT,Capsule, [facility]., Partial fill upon patient request if the prescription is for aschedule II opioid drug., saqib Jean, 08/04/22 16:02:0... Start Date: 08/09/22 Status: Ordered ziprasidone 80 mg oral capsule 1 capsule = 80 mg, By Mouth, Daily at supper, # 90 each, 0 Refills, Maintenance, 08/09/22 13:01:00 EDT, [facility]., Partial fill upon patient request if the prescription is for a schedule II opioid drug., saqib Jean, 08/04/22 16:02:00 EDT... Start Date: 08/09/22 Status: [...] 2information and pathology of colonospcy in [facility] 09-09-2020 note 3per note - CT at outside location 4Completed a colonoscopy 2020 and had a cecum polyp. Biopsy tubular adenoma. repeat colonoscopy 7 years Social History Social History Type Response Smoking Status Never smoker entered on: 03/12/18 Sex Patient Care team information Care Team Personnel Name: José López MD, Katrin Ladd Position: [facility] Outreach Member Role: PCP Address: Address: [address] [place] [id number]- Care Team Related Persons Name: MARILU BOYD Address: [place] [address]
--- OUTSIDE RECORDS SUMMARY | 2023-11-07 13:33 | XMS_ITS | Continuity of Care Document ---
Author Organization [facility]ocrinolo gy and Diabetes Address [address] [place] [address]- Care Team Providers Care Safety Investigator Name Role Phone José López MD, Katrin Ladd Primary Care Jeffrey naik Encounter [facility] Date(s): 07/03/23 - 09/08/23 [facility] Endocrinology and Diabetes [address] [place] [id number] Attending Physician: Fiorella Ryder MD Referring Physician: José López MD, Katrin Ladd [...] 1 Refills, Maintenance, 08/25/22 18:29:00 EDT, [facility]ol, [facility] Partial fill upon patient [...] 08/25/22 18:25:00 EDT, Route to Pharmacy Electronically, [facility]., Partial fill upon patientrequest if the prescription is for a schedule II op... Start Date: 08/25/22 Status: Ordered aspirin 81 mg oral delayed release tablet 81 mg, 1, tablet, By Mouth, Daily, # 90 tablet, Refills 1, Tot. Refills 1, Maintenance, 08/25/22 18:25:00 EDT, Route to Pharmacy Electronically, [facility]., Partial fill upon patient request if the prescription is for a schedule II opi... Start Date: 08/25/22 Status: Ordered atorvastatin 80 mg oral tablet 1 tablet = 80 mg, By Mouth, Daily, # 90 tablet, 1 Refills, Maintenance, 08/25/22 18:25:00 EDT, Tablet, [facility]., Partial fill upon patient request [...] 18:25:00 EDT, Route to Pharmacy Electronically, [facility], Partial fill upon patient request if [...] 0, Tot. Refills 0, Maintenance, Dexcom G7 high risk case manager use as directed. e11.9, 09/14/22 10:15:00 [...] 8 Refills, Maintenance, 12/13/22 12:20:00 EDT, Tablet, [facility], Partial fill upon patient request if the prescription is for a schedule II opioid drug., 176, cm, 10/31/22 13:... Start Date: 12/13/22 Status: Ordered ergocalciferol 34676 iu oral capsule 50,000 International_Units, 1, capsule, By Mouth, Every week, # 13 capsule, Refills 0, Tot. Refills0, Maintenance, 09/22/22 9:24:00 EDT, Route to Pharmacy Electronically, [facility],Partial fill upon patient request if the prescripti... Start Date: 09/22/22 Stop Date: 12/21/22 Status: Ordered Eucerin Plus topical lotion 1 application, Topically, 2 times a day, PRN for dry skin, # 180 mL, 0 Refills, Maintenance, 08/26/22 17:33:00 EDT, Lotion, [facility]., Partial fill upon patient request if the prescription is for a schedule II opioid drug., 1 applicat... Start Date: 08/26/22 Status: Ordered fluticasone 50 mcg/inh nasal spray 2 sprays = 100 mcg, Nares, Both, Daily in AM, # 16 Gm, 3 Refills, Maintenance, 08/25/22 18:32:00 EDT, Nasal [place], [facility]., Partial fill upon patient request [...] 08/26/22 16:04:00 EDT, Route to Pharmacy Electronically, [facility] 176, cm, 08/17/22 14:18:00 EDT, Height [...] mL, 5 Refills, Maintenance, 05/27/23 8:16:00 EST, [facility], cm, 05/25/23 15:45:00 EST, Height Start [...] 11:45:00 EDT, Route to Pharmacy Electronically, [facility], Partial fill upon patient request if the prescription is for a schedule II opi... Start Date: 08/09/22 Status: Ordered losartan 50 mg oral tablet 1 tablet = 50 mg, By Mouth, Daily, # 90 tablet, 1 Refills, Maintenance, 10/17/22 16:21:00 EDT, [facility]., 176, cm, 09/19/22 13:07:00 EDT, Height [...] 08/26/22 Stop Date: 09/02/22 Status: Ordered Pen [place], 31 G x 5 mm BD Ultra [...] 1 Refills, Maintenance, 08/25/22 18:29:00 EDT, Aerosol, [facility]., Partial fill upon patient request if the prescription is for a schedule II opioid drug., 176, cm, 08/17/22 14:18:00 EDT... Start Date: 08/25/22 Status: Ordered traZODone 150 mg oral tablet 1 tablet = 150 mg, By Mouth, Daily at bedtime, # 90 tablet, 0 Refills, Maintenance, 08/09/22 13:00:00 EDT, Tablet, [facility] Partial fill upon patient request if [...] Gm, 0 Refills,Maintenance, 08/25/22 18:29:00 EDT, Inhaler, [facility] Partial fill upon patient request if the prescription is for a schedule II opi... Start Date: 08/25/22 Status: Ordered ziprasidone 40 mg oral capsule 1 capsule = 40 mg, By Mouth, Daily in AM, # 90 each, 0 Refills, Maintenance, 08/09/22 13:01:00 EDT,Capsule, [facility] Partial fill upon patient request if the prescription is for aschedule II opioid drug., 176, cm, 08/04/22 16:02:0... Start Date: 08/09/22 Status: Ordered ziprasidone 80 mg oral capsule 1 capsule = 80 mg, By Mouth, Daily at supper, # 90 each, 0 Refills, Maintenance, 08/09/22 13:01:00 EDT, [facility] Partial fill upon patient request if [...] 2016 2information and pathology of colonospcy in [facility] 09-09-2020 note 3per note - CT 11-2021 at outside location 4Completed a colonoscopy 2020 and had a cecum polyp. Biopsy tubular adenoma. repeat colonoscopy 7 years Social History Social History Type Response Smoking Status Never smoker entered on: 03/12/18 Sex Patient Care team information Care Team Personnel Name: José López MD, Katrin Ladd Position: [facility] Outreach Member Role: PCP Address: Address: [address] [place] [address]- Care Team Related Persons Name: MARILU BOYD Address: [place] [address]
--- OUTSIDE RECORDS SUMMARY | 2023-11-07 13:34 | XMS_ITS | Continuity of Care Document ---
Author Organization [facility] Address [address] [place] [address]- Care Team Providers Care Grinder Setup Operator Name Role Phone José López MD, Katrin Ladd Primary Care Lizetteelena naik Encounter [facility] [place] Date(s): 09/15/23 - 10/15/23 [facility] [address] [place] [id number] Attending Physician: Ani Atkinson Admitting Physician: Ani Atkinson Referring Physician: AdmtrAni Referring Physician: Sveta Lazaro [...] 1 Refills, Maintenance, 08/25/22 18:29:00 EDT, [facility]erosol, [facility] [...] 18:25:00 EDT, Route to Pharmacy Electronically, [facility], Partial fill upon patientrequest if the prescription is for a schedule II op... Start Date: 08/25/22 Status: Ordered aspirin 81 mg oral delayed release tablet 81 mg, 1, tablet, By Mouth, Daily, # 90 tablet, Refills 1, Tot. Refills 1, Maintenance, 08/25/22 18:25:00 EDT, Route to Pharmacy Electronically, [facility]., Partial fill upon patient request if the prescription is for a schedule II opi... Start Date: 08/25/22 Status: Ordered atorvastatin 80 mg oral tablet 1 tablet = 80 mg, By Mouth, Daily, # 90 tablet, 1 Refills, Maintenance, 08/25/22 18:25:00 EDT, Tablet, [facility], Partial fill upon patient request if the [...] 18:25:00 EDT, Route to Pharmacy Electronically, [facility], Partial fill upon patient request if the [...] 0 Refills, Soft Stop, 09/15/23 12:07:00 EDT, [facility], Partial fill upon patient request if the prescription isfor a schedule II opioid drug., 176, cm, 09/15/23 1... Start Date: 09/15/23 Status: Ordered DEXCOM G7 RECIEVER DEXCOM G7 RECIEVER, See Instructions, # 1 each, Refills 0, Tot. Refills 0, Maintenance, Dexcom G7 service center assistant use as directed. e11.9, 09/14/22 10:15:00 EDT, [...] 8 Refills, Maintenance, 12/13/22 12:20:00 EDT, Tablet, [facility], Partial fill upon patient request if the prescription is for a schedule II opioid drug., 176, cm, 10/31/22 13:... Start Date: 12/13/22 Status: Ordered ergocalciferol 33235 iu oral capsule 50,000 International_Units, 1, capsule, By Mouth, Every week, # 13 capsule, Refills 0, Tot. Refills0, Maintenance, 09/22/22 9:24:00 EDT, Route to Pharmacy Electronically, [facility],Partial fill upon patient request if the prescripti... Start Date: 09/22/22 Stop Date: 12/21/22 Status: Ordered Eucerin Plus topical lotion 1 application, Topically, 2 times a day, PRN for dry skin, # 180 mL, 0 Refills, Maintenance, 08/26/22 17:33:00 EDT, Lotion, [facility], Partial fill upon patient request if the prescription is for a schedule II opioid drug., 1 applicat... Start Date: 08/26/22 Status: Ordered fluticasone 50 mcg/inh nasal spray 2 sprays = 100 mcg, Nares, Both, Daily in AM, # 16 Gm, 3 Refills, Maintenance, 08/25/22 18:32:00 EDT, Nasal [place], [facility], Partial fill upon patient request if the [...] 08/26/22 16:04:00 EDT, Route to Pharmacy Electronically, [facility], 176, cm, 08/17/22 14:18:00 EDT, Height Start [...] mL, 5 Refills, Maintenance, 05/27/23 8:16:00 EST, [facility], [facility], 176, cm, 05/25/23 15:45:00 EST, Height Start [...] 11:45:00 EDT, Route to Pharmacy Electronically, [facility] Partial fill upon patient request if the prescription is for a schedule II opi... Start Date: 08/09/22 Status: Ordered losartan 50 mg oral tablet 1 tablet = 50 mg, By Mouth, Daily, # 90 tablet, 1 Refills, Maintenance, 10/17/22 16:21:00 EDT, [facility] 176, cm, 09/19/22 13:07:00 EDT, [...] 08/26/22 Stop Date: 09/02/22 Status: Ordered Pen [place], 31 G x 5 mm BD Ultra [...] 1 Refills, Maintenance, 08/25/22 18:29:00 EDT, Aerosol, [facility] Partial fill upon patient request if the prescription is for a schedule II opioid drug., 176, cm, 08/17/22 14:18:00 EDT... Start Date: 08/25/22 Status: Ordered traZODone 150 mg oral tablet 1 tablet = 150 mg, By Mouth, Daily at bedtime, # 90 tablet, 0 Refills, Maintenance, 08/09/22 13:00:00 EDT, Tablet, [facility] Partial fill upon patient request [...] Gm, 0 Refills,Maintenance, 08/25/22 18:29:00 EDT, Inhaler, [facility]., Partial fill upon patient request if the prescription is for a schedule II opi... Start Date: 08/25/22 Status: Ordered Vitamin D3 50,000 intl units oral capsule 1 capsule = 1,250 mcg, By Mouth, Every 7 days, # 13 capsule, 0 Refills, Maintenance, 09/15/23 10:57:00 EDT, Capsule, [facility], Partial fill upon patient request if the prescription is for a schedule II opioid drug., 176, saqib, 09/05... Start Date: 09/15/23 Stop Date: 12/14/23 Status: Ordered ziprasidone 40 mg oral capsule 1 capsule = 40 mg, By Mouth, Daily in AM, # 90 each, 0 Refills, Maintenance, 08/09/22 13:01:00 EDT,Capsule, [facility]., Partial fill upon patient request if the prescription is for aschedule II opioid drug., saqib Jean, 08/04/22 16:02:0... Start Date: 08/09/22 Status: Ordered ziprasidone 80 mg oral capsule 1 capsule = 80 mg, By Mouth, Daily at supper, # 90 each, 0 Refills, Maintenance, 08/09/22 13:01:00 EDT, [facility]., Partial fill upon patient request if the prescription is for a schedule II opioid drug., 176, saqib, 08/04/22 16:02:00 EDT... Start Date: 08/09/22 Status: [...] 2information and pathology of colonospcy in [facility] 09-09-2020 note 3per note - CT at outside location 4Completed a colonoscopy 2020 and had a cecum polyp. Biopsy tubular adenoma. repeat colonoscopy 7 years Social History Social History Type Response Smoking Status Never smoker entered on: 03/12/18 Sex Patient Care team information Care Team Personnel Name: José López MD, Katrin Ladd Position: [facility] Outreach Member Role: PCP Address: Address: [address] [place] [id number]- Care Team Related Persons Name: GERTRUDE BOYDARA Address: [place] [address]
--- OUTSIDE RECORDS SUMMARY | 2023-11-07 13:34 | XMS_ITS | Continuity of Care Document ---
Author Organization [facility] Address [address] [place] [address]- Care Team Providers Care Turner In Name Role Phone José López MD, Katrin Ladd Primary Care Jeffrey villarealenio Encounter [facility] [place] Date(s): 08/09/23 - 09/08/23 [facility] [address] [place] [id number] Attending Physician: AdmAni subramanian Admitting Physician: Admtr, [id number] Referring Physician: Admtr, [id number] Allergies, Adverse Reactions, [...] 1 Refills, Maintenance, 08/25/22 18:29:00 EDT, [facility], [facility] upon patient request [...] 08/25/22 18:25:00 EDT, Route to Pharmacy Electronically, [facility] Partial fill upon patientrequest if the prescription is for a schedule II op... Start Date: 08/25/22 Status: Ordered aspirin 81 mg oral delayed release tablet 81 mg, 1, tablet, By Mouth, Daily, # 90 tablet, Refills 1, Tot. Refills 1, Maintenance, 08/25/22 18:25:00 EDT, Route to Pharmacy Electronically, [facility]., Partial fill upon patient request if the prescription is for a schedule II opi... Start Date: 08/25/22 Status: Ordered atorvastatin 80 mg oral tablet 1 tablet = 80 mg, By Mouth, Daily, # 90 tablet, 1 Refills, Maintenance, 08/25/22 18:25:00 EDT, Tablet, [facility]., Partial fill upon patient request if [...] 08/25/22 18:25:00 EDT, Route to Pharmacy Electronically, [facility]., Partial fill upon patient request if [...] 0, Tot. Refills 0, Maintenance, Dexcom G7 optical manager use as directed. e11.9, 09/14/22 10:15:00 [...] 8 Refills, Maintenance, 12/13/22 12:20:00 EDT, Tablet, [facility], Partial fill upon patient request if the prescription is for a schedule II opioid drug., 176, cm, 10/31/22 13:... Start Date: 12/13/22 Status: Ordered ergocalciferol 45867 iu oral capsule 50,000 International_Units, 1, capsule, By Mouth, Every week, # 13 capsule, Refills 0, Tot. Refills0, Maintenance, 09/22/22 9:24:00 EDT, Route to Pharmacy Electronically, [facility],Partial fill upon patient request if the prescripti... Start Date: 09/22/22 Stop Date: 12/21/22 Status: Ordered Eucerin Plus topical lotion 1 application, Topically, 2 times a day, PRN for dry skin, # 180 mL, 0 Refills, Maintenance, 08/26/22 17:33:00 EDT, Lotion, [facility]., Partial fill upon patient request if the prescription is for a schedule II opioid drug., 1 applicat... Start Date: 08/26/22 Status: Ordered fluticasone 50 mcg/inh nasal spray 2 sprays = 100 mcg, Nares, Both, Daily in AM, # 16 Gm, 3 Refills, Maintenance, 08/25/22 18:32:00 EDT, Nasal [place], [facility], Partial fill upon patient request [...] 08/26/22 16:04:00 EDT, Route to Pharmacy Electronically, [facility]., 176, cm, 08/17/22 14:18:00 EDT, Height [...] mL, 5 Refills, Maintenance, 05/27/23 8:16:00 EST, [facility], [facility], 176, cm, 05/25/23 15:45:00 EST, [...] EDT, Route to Pharmacy Electronically, [facility], Partial fill upon patient request if the prescription is for a schedule II opi... Start Date: 08/09/22 Status: Ordered losartan 50 mg oral tablet 1 tablet = 50 mg, By Mouth, Daily, # 90 tablet, 1 Refills, Maintenance, 10/17/22 16:21:00 EDT, [facility] 176, cm, 09/19/22 13:07:00 EDT, Height [...] 08/26/22 Stop Date: 09/02/22 Status: Ordered Pen [place], 31 G x 5 mm BD Ultra [...] 1 Refills, Maintenance, 08/25/22 18:29:00 EDT, Aerosol, [facility]., Partial fill upon patient request if the prescription is for a schedule II opioid drug., 176, cm, 08/17/22 14:18:00 EDT... Start Date: 08/25/22 Status: Ordered traZODone 150 mg oral tablet 1 tablet = 150 mg, By Mouth, Daily at bedtime, # 90 tablet, 0 Refills, Maintenance, 08/09/22 13:00:00 EDT, Tablet, [facility] Partial fill upon patient request [...] 0 Refills,Maintenance, 08/25/22 18:29:00 EDT, Inhaler, [facility] Partial fill upon patient request if the prescription is for a schedule II opi... Start Date: 08/25/22 Status: Ordered ziprasidone 40 mg oral capsule 1 capsule = 40 mg, By Mouth, Daily in AM, # 90 each, 0 Refills, Maintenance, 08/09/22 13:01:00 EDT,Capsule, [facility] Partial fill upon patient request if the prescription is for aschedule II opioid drug., 176, cm, 08/04/22 16:02:0... Start Date: 08/09/22 Status: Ordered ziprasidone 80 mg oral capsule 1 capsule = 80 mg, By Mouth, Daily at supper, # 90 each, 0 Refills, Maintenance, 08/09/22 13:01:00 EDT, [facility] Partial fill upon patient request [...] 2016 2information and pathology of colonospcy in [facility] 09-09-2020 note 3per note - CT at outside location 4Completed a colonoscopy 2020 and had a cecum polyp. Biopsy tubular adenoma. repeat colonoscopy 7 years Social History Social History Type Response Smoking Status Never smoker entered on: 03/12/18 Sex Patient Care team information Care Team Personnel Name: José López MD, Katrin Ladd Position: [facility] Outreach Member Role: PCP Address: Address: [address] [place] [address]- Care Team Related Persons Name: MARILU BOYD Address: [place] [address]
[2023-11-07 13:50] LABS: Bilirubin Direct 0.1 mg/dL (0.0-0.5); Magnesium 2.3 mg/dL (1.6-2.6)
[2023-11-07 14:01] LABS: B Type Natriuretic Peptide < 10 pg/mL (<100)
[2023-11-07] MEDS: ondansetron HCL 4 MG/2 ML VIAL IVPUSH (14:05)
[2023-11-07] MEDS: 0.9 % Sodium Chloride 500 ML 999 ML IV ×2 (14:05→17:35)
[2023-11-07] MEDS: Meclizine HCl 25 MG TABLET PO (14:05)
--- NOTE | 2023-11-07 14:06 | PC.NURSE ---
chest xray completed at this time.
--- NOTE | 2023-11-07 14:10 | PC.NURSE ---
20gIV placed in the left hand - patent/intact. medication administered per provider order.
[2023-11-07 15:56] LABS: Glucose, Whole Blood 97 mg/dL (60-115)
--- NOTE | 2023-11-07 15:59 | PC.NURSE ---
repeat trop obtained/sent to lab by tech. orthostatic vital signs performed. plan of care ongoing. call hurtado placed within reach.
[2023-11-07 16:32] LABS: Troponin-I High Sensitivity 9.1 ng/L (<3.5-35.0)
[2023-11-07 17:17] LABS: Anion Gap 16 (12-20); Blood Urea Nitrogen 48 mg/dL (9-16); Calcium 9.6 mg/dL (8.4-10.2); Carbon Dioxide 24 mmol/L (22-29); Chloride 104 mmol/L (96-108); Creatinine Clr Calc Pharmacy 44.1; Estimated Glomerular Filt Rate 30; Glucose Random 93 mg/dL (60-115); Sodium 140 mmol/L (135-145)
--- NOTE | 2023-11-07 17:35 | PC.NURSE ---
IVF administered per provider order. pt resting in no apparent distress. respirations even and unlabored. plan of care ongoing.
== END 2023-11-07 21:09 | disposition home or self-care (01) ==
PROVIDERS: Physician Assistant; Registered Nurse Emergency; Emergency Provider Emergency Medicine; PCP Student in an Organized Health Care Education/Training Program
DX: R07.9 Chest pain, unspecified (principal); R42 Dizziness and giddiness; I95.1 Orthostatic hypotension; R06.02 Shortness of breath; D72.829 Elevated white blood cell count, unspecified; R11.0 Nausea; E11.22 Type 2 diabetes mellitus with diabetic chronic kidney disease; I12.9 Hypertensive chronic kidney disease with stage 1 through stage 4 chronic kidney disease, or unspecified chronic kidney disease; N18.9 Chronic kidney disease, unspecified; M10.9 Gout, unspecified; Z79.4 Long term (current) use of insulin; Z79.899 Other long term (current) drug therapy; Z03.818 Encounter for observation for suspected exposure to other biological agents ruled out
CPT/HCPCS: 0241U; 36415; 71046; 80048; 80053; 82248; 82550; 82947; 83735; 83880; 84484; 85025; 85610; 93005; 96361; 96374; 99284; 99285; J2405

== ENCOUNTER → 2023-11-07 12:10 | Outpatient (BNV) | payer MEDICAID, SELFPAY | PROVIDERS: Emergency Provider Emergency Medicine; PCP Student in an Organized Health Care Education/Training Program; Visit Provider Internal Medicine | DX: R42 Dizziness and giddiness (principal) | CPT/HCPCS: 93010 ==

== ENCOUNTER 2023-11-14 12:29 | Outpatient (REF) | payer MEDICAID, SELFPAY ==
--- NOTE | ~2023-11-14 | XR_ITS ---
EXAMINATION: XR FOOT, RIGHT CLINICAL INFORMATION: Right foot sole lesion causing pain. COMPARISON: None available. TECHNIQUE: Four views of the right foot. FINDINGS: Bone mineralization is normal. Small dorsal and plantar calcaneal enthesophytes. Multiple focal erosions at the medial base of the proximal phalanx of the great toe with medial soft tissue swelling and mild loss of the joint space. Vascular calcifications. XR/XR foot RT min 3V IMPRESSION: Multiple focal erosions at the medial base of the proximal phalanx of the great toe with medial soft tissue swelling and mild loss of the joint space.
[2023-11-17 13:09] LABS: Buprenorphine NEGATIVE; Naloxone NEGATIVE; Norbuprenorphine NEGATIVE
== END 2023-11-14 12:30 | disposition home or self-care (01) ==
LOC: HO.HHCX 12:29
PROVIDERS: Emergency Medicine; Visit Provider Student in an Organized Health Care Education/Training Program
DX: S99.921A Unspecified injury of right foot, initial encounter (principal); Y92.9 Unspecified place or not applicable; Y93.9 Activity, unspecified; Y99.9 Unspecified external cause status
CPT/HCPCS: 73630; 80348; 80362

== ENCOUNTER 2023-12-27 07:57 | Outpatient (AMB) | payer MEDICAID, SELFPAY ==
--- NOTE | 2023-12-27 07:58 | MHC.OFFVIS ---
Vital Signs 12/27/23 07:59 Height 5 ft 8 in Weight 253 lb BMI 38.5 BP 146/100 H Blood Pressure Location Rt brachial Position Sitting Pulse 7 L Pulse Oximetry (%) 99 Oxygen Delivery Method Room Air Intake Visit Reasons: Follow Up Intake Note: Patient presents for follow up. Regional Construction Manager Required: Yes Regional Construction Manager Name: jyoti duong Information Interpreted: non-clinical & clinical Allergies Penicillins [PENICILLINS] Allergy (Intermediate, Verified 12/27/23 08:02) RASH, DIFFICULTY BREATHING Medication List - Last Reconciled 12/27/23 by HAYLEE Reno acetaminophen 1,000 mg PO Q6H PRN albuterol sulfate 2.5 mg inhalation Q6H PRN allopurinol 50 mg PO DAILY amlodipine 2.5 mg PO QAM aspirin 1 tab PO QAM atorvastatin 80 mg PO DAILY blood-glucose meter,continuous (Dexcom G7 Sole Inker) As directed blood-glucose sensor (Dexcom G7 Sensor device) As directed calcium carbonate (Calcium Antacid) 400 mg PO QAM carboxymethylcellulose sodium 0.5% (Lubricant Eye Drops) 1 drp ophthalmic (eye) NEEDED carvedilol 25 mg PO BID cholecalciferol (vitamin D3) 50 mcg PO QAM clonazepam 0.5 mg PO TID divalproex ER (Depakote ER) 1,000 mg PO BEDTIME dulaglutide (Trulicity) 4.5 mg subcut QWEEK empagliflozin 25 mg PO DAILY ezetimibe 10 mg PO QAM fluticasone propion-salmeterol 230-21 mcg/actuation (Advair HFA) 2 puffs inhalation DAILY furosemide 80 mg PO BID gabapentin 800 mg PO DAILY insulin regular hum U-500 conc (Humulin R U-500 (Conc) Insulin Kwikpen) 140 units subcut DAILY@1730 insulin regular hum U-500 conc (Humulin R U-500 (Conc) Insulin Kwikpen) 135 units subcut DAILY@0730 insulin regular hum U-500 conc (Humulin R U-500 (Concentrated) Insulin) 140 units subcut DAILY@1200 lidocaine 5% 1 patch topical DAILY PRN losartan 100 mg PO QAM meclizine 25 mg PO TID PRN omega 3-fep-ryz-fish oil 300 mg (120 mg- 180mg)-1,000 mg 1 cap PO BID pantoprazole 40 mg PO DAILY pen needle, diabetic (BD Ultra-Fine Mini Pen Needle) As directed sodium,potassium,mag sulfates 17.5-3.13-1.6 gram (Suprep Bowel Prep Kit) DILUTE; drink 1/2 at 6-8 pm and half at 11 PM- 1AM tiotropium bromide 1.25 mcg/actuation (Spiriva Respimat) 2 puffs inhalation QAM tramadol 50 mg PO Q8H PRN trazodone 150 mg PO BEDTIME PRN ziprasidone HCl (Geodon) 80 mg PO BEDTIME HPI Comments Details: 53-yr-old female/male presents for follow-up visit for REGI. Since the last visit, HST which showed mild REGI w/ nocturnal hypoxemia- AHI 11.9/hr w/ O2 billy 68% (SpO2 < 90% x's 68 min, < 88% x's 39.5 min). Thus, pt was advised to undergo in-lab PSG PAP titration study- which showed good control of sleep apnea and improvement in oxygen levels (O2 billy 84%). He has not started CPAP yet- has not rec'd yet. Pt does endorse excessive daytime sleepiness, can fall asleep while talking w/ someone, SOB/wheeze/brief chest pains on exertion. Pt denies h/o asthma, current smoking. Echocardiogram, 04/24/2023: Conclusions: - 1. Normal LV ejection fraction 55-60% with mild LVH with impaired relaxation filling pattern 2. Normal cardiac valvular Doppler 3. No gross pericardial effusion [facility] Medical History (Updated 12/27/23 @ 08:27 by HAYLEE Reno) HTN (hypertension) Leukocytosis Memory loss Obesity Idiopathic gout of multiple sites GERD (gastroesophageal reflux disease) Hypertensive chronic kidney disease Secondary hyperparathyroidism, renal Sleep apnea Type 2 diabetes mellitus Schizoaffective disorder Chronic pain syndrome Diabetic polyneuropathy Gout Surgical History History of esophagogastroduodenoscopy (EGD) H/O colonoscopy Family History Father Cancer Diabetes Mother Cancer Diabetes Colon cancer Family/Other Cancer Diabetes Social History Household Members: Spouse Housing: Apartment Do you presently have visiting nurse or other home services: No Alcohol intake: never Patient Tobacco Use Status: Never used Tobacco Review of Systems Const All systems reviewed & are unremarkable except as noted in HPI and below Physical Exam Vital Signs: Last Vital Signs Pulse 7 L 12/27/23 07:59 BP 146/100 H 12/27/23 07:59 Pulse Ox 99 12/27/23 07:59 Oxygen Delivery Method Room Air 12/27/23 07:59 BMI result Body Mass Index 38.5 SpO2 dropped from 97% on room air while standing still to 87% after walking 1 minute in hallway. Const Other: Pt alert, but did start to doze off during auscultation of lung sounds. General: no acute distress Orientation/consciousness: patient oriented x3 Resp Effort & Inspection: able to speak in complete sentences Auscultation: rhonchi lower bilaterally (cleared with deep breathes) Neuro General: patient oriented x3 Psych Mental Status: mental status grossly normal Speech and movement: Clear speech present Attitude: cooperative Results Reviewed Results Reviewed: In-lab PSG report- see HPI. Assessment & Plan Assessment & Plan (1) REGI on CPAP: Comment: moderate degree of sleep apnea. AHI for 12/hr and oxygen billy was 50, average O2 sat was 86%. Code(s): G47.33 - Obstructive sleep apnea (adult) (pediatric) Category: Medical (2) Wheezing: Code(s): R06.2 - Wheezing Category: Medical (3) SOB (shortness of breath) on exertion: Code(s): R06.02 - Shortness of breath Category: Medical (4) Nocturnal hypoxemia: Code(s): G47.34 - Idiopathic sleep related nonobstructive alveolar hypoventilation Category: Medical Plan Start CPAP 9 cmH2O nightly > 4 hrs. Order written. Clean and change PAP supplies routinely. Will refer pt for pulmonology consult to further assess pt's nocturnal hypoxemia, as well as O2 desaturatioin on brief walk in office in setting of pt's reports of SOB/CP/wheezing on exertion. Pt denies h/o asthma- though has prn albuterol on med list. Orders: Referrals Pulmonology Referral G47.33 - Obstructive sleep apnea (adult) (pediatric), G47.34 - Idiopathic sleep related nonobstructive alveolar hypoventilation, R06.02 - Shortness of breath, R06.2 - Wheezing Coding Level of Care Code Est Pt Level 4 (78831) Diagnoses REGI on CPAP G47.33 Wheezing R06.2 SOB (shortness of breath) on exertion R06.02 Nocturnal hypoxemia G47.34
[2023-12-27 07:59] VITALS: BP 146/100; PULSE 7; O2SAT 99; BMI 38.5
== END 2023-12-27 08:35 | disposition home or self-care (01) ==
PROVIDERS: PCP Student in an Organized Health Care Education/Training Program; Visit Provider Nurse Practitioner Family
DX: G47.33 Obstructive sleep apnea (adult) (pediatric) (principal); R06.2 Wheezing; R06.02 Shortness of breath; G47.34 Idiopathic sleep related nonobstructive alveolar hypoventilation
CPT/HCPCS: 99214

== ENCOUNTER → 2023-12-27 07:57 | Outpatient (BNVA) | payer MEDICAID, SELFPAY | PROVIDERS: PCP Student in an Organized Health Care Education/Training Program; Visit Provider Nurse Practitioner Family | DX: G47.33 Obstructive sleep apnea (adult) (pediatric) (principal); G47.34 Idiopathic sleep related nonobstructive alveolar hypoventilation; R06.2 Wheezing; R06.02 Shortness of breath | CPT/HCPCS: 99212 ==

== ENCOUNTER → 2024-01-02 13:45 | Outpatient (BNVA) | payer MEDICAID, SELFPAY | PROVIDERS: PCP Student in an Organized Health Care Education/Training Program; Visit Provider Surgery Vascular Surgery | DX: M79.604 Pain in right leg (principal); M79.605 Pain in left leg; M54.9 Dorsalgia, unspecified | CPT/HCPCS: 99212 ==

== ENCOUNTER 2024-01-02 14:00 | Outpatient (AMB) | payer MEDICAID, SELFPAY ==
[2024-01-02 13:47] VITALS: BP 142/80; BMI 38.5
--- NOTE | 2024-01-02 13:47 | A.OFFVIS_ITS ---
Vital Signs 01/02/24 13:47 Height 5 ft 8 in Weight 253 lb BMI 38.5 BP 142/80 H Blood Pressure Location Rt brachial Position Sitting Intake Visit Reasons: overdue follow up s/p US 07/04/23 Intake Note: Darrel is a 53 year old male who presents to the office today for follow up s/p US 07/04/23. Pt states his legs are painful but states his left leg is more painful than his right. Pt states he gets numbness in both feet. Pt also states he gets swelling in his legs and ankles especially when walking for longer periods of time. Allergies Penicillins [PENICILLINS] Allergy (Intermediate, Verified 01/02/24 13:49) RASH, DIFFICULTY BREATHING HPI HPI overdue follow up s/p US 07/04/23: Details: Very pleasant 53-year-old gentleman who was originally sent for evaluation by pain management regarding his lower extremities. Tired heavy feeling along with pain of the lower extremities right greater than left. Of note the patient has a prior history of diabetes and back pain. Now presents for follow-up with venous insufficiency testing. No interval [facility] Medical History (Updated 01/02/24 @ 14:14 by Dano Rowland MD) HTN (hypertension) Leukocytosis Memory loss Obesity Idiopathic gout of multiple sites GERD (gastroesophageal reflux disease) Hypertensive chronic kidney disease Secondary hyperparathyroidism, renal Sleep apnea Type 2 diabetes mellitus Schizoaffective disorder Chronic pain syndrome Diabetic polyneuropathy Gout Surgical History History of esophagogastroduodenoscopy (EGD) H/O colonoscopy Family History Father Cancer Diabetes Mother Cancer Diabetes Colon cancer Family/Other Cancer Diabetes Social History Household Members: Spouse Housing: Apartment Do you presently have visiting nurse or other home services: No Alcohol intake: never Patient Tobacco Use Status: Never used Tobacco Review of Systems Const All systems reviewed & are unremarkable except as noted in HPI and below Reports no additional complaints ENT Reports Normal hearing present Card Denies chest pain, Denies chest pain at rest, Denies chest pain with activity and Denies pedal edema Resp Denies cough GI Denies abdominal pain Musc Denies abnormal gait, Denies muscle cramps and Denies radiating pain into limb Skin/Breast Denies skin ulcer and Denies wounds Neuro Reports Normal hearing present and Denies abnormal gait Psych Reports no additional complaints Physical Exam Vital Signs: Last Vital Signs BP 142/80 H 01/02/24 13:47 BMI result Body Mass Index 38.5 Const General: cooperative, healthy appearing and comfortable Orientation/consciousness: oriented to person, oriented to place and oriented to time HEENT Head: Yes normal to inspection Neck Neck: Yes normal visual inspection Carotids: no bruits Chest Chest palpation & inspection: normal inspection of the chest Resp Effort & Inspection: normal respiratory effort and able to speak in complete sentences Auscultation: clear to auscultation bilaterally, no crackles, no rales, no rhonchi and no wheezes Cardio Rate: regular rate Rhythm: regular rhythm Heart sounds: S1 normal heart sound present and S2 normal heart sound present Bruits: no carotid bruits Peripheral pulses: Peripheral pulses 2+ throughout GI Inspection: Yes normal to inspection Skin Wounds: no wounds Hair: normal Neuro General: oriented to person, oriented to place and oriented to time Cranial nerves: Yes CN's II-XII intact bilaterally and Yes Normal hearing present Cognition (Neuro): normal cognition Motor exam (neuro): 5/5 motor strength present throughout Extrem Other: venous exam: +1 edema Pain of direct palpation of lower extremities General: No clubbing, No cyanosis and No edema Psych Appearance: grossly normal Mental Status: mental status grossly normal Speech and movement: Normal speech and movement present Results Reviewed Results Reviewed: Brief summary of venous insufficiency testing is as follows: right great saphenous vein: negative right small saphenous vein: negative right accessory vein: none present left great saphenous vein: negative left small saphenous vein: negative left accessory vein: none present Please note there is no evidence of any venous aneurysms or significant tortuosity Assessment & Plan Assessment & Plan (1) Leg pain, bilateral: Code(s): M79.604 - Pain in right leg; M79.605 - Pain in left leg Category: Medical Plan: In short patient has lower extremity pain. It is unclear of the exact etiology. Patient has palpable arterial pulses and venous insufficiency testing was latonya wn to be negative. I do think he may need to revisit and Re- think the pain management therapy and alternatives. At the current time there is nothing from a vascular standpoint. He will follow up with us on an as-needed basis. Thank you for allowing us to participate in his care. If there are any questions or concerns please do not hesitate to contact us. Coding Level of Care Code Est Pt Level 3 (40908) Diagnoses Leg pain, bilateral M79.604; M79.605
--- OUTSIDE RECORDS SUMMARY | 2024-01-02 13:47 | XMS_ITS | Continuity of Care Document ---
Author Organization [facility] Address [address] [place] [id number]- Care Team Providers Care Roundhouse Firer/Fireman Name Role Phone José López MD, Katrin Ladd Primary Care Jeffrey naik [place] [facility] [place]): [place]14/23 [facility] [address] [place] [id number] Attending Physician: Celina Hayes MD Admitting [...] 1 Refills, Maintenance, 08/25/22 18:29:00 EDT, [facility] [...] 08/25/22 18:25:00 EDT, Route to Pharmacy Electronically, [facility]., Partial fill upon patientrequest if the prescription is for a schedule II op... Start Date: 08/25/22 Status: Ordered aspirin 81 mg oral delayed release tablet 81 mg, 1, tablet, By Mouth, Daily, # 90 tablet, Refills 1, Tot. Refills 1, Maintenance, 08/25/22 18:25:00 EDT, Route to Pharmacy Electronically, [facility]., Partial fill upon patient request if the prescription is for a schedule II opi... Start Date: 08/25/22 Status: Ordered atorvastatin 80 mg oral tablet 1 tablet = 80 mg, By Mouth, Daily, # 90 tablet, 1 Refills, Maintenance, 08/25/22 18:25:00 EDT, Tablet, [facility]., Partial fill upon patient request if the [...] 08/25/22 18:25:00 EDT, Route to Pharmacy Electronically, [facility]., Partial fill upon patient request if the [...] 0 Refills, Soft Stop, 09/15/23 12:07:00 EDT, [facility], Partial fill upon patient request if the prescription isfor a schedule II opioid drug., 176, cm, 09/15/23 1... Start Date: 09/15/23 Status: Ordered DEXCOM G7 RECIEVER DEXCOM G7 RECIEVER, See Instructions, # 1 each, Refills 0, Tot. Refills 0, Maintenance, Dexcom G7 loop sewer use as directed. e11.9, 09/14/22 10:15:00 EDT, [...] 8 Refills, Maintenance, 12/13/22 12:20:00 EDT, Tablet, [facility], Partial fill upon patient request if the prescription is for a schedule II opioid drug., 176, cm, 10/31/22 13:... Start Date: 12/13/22 Status: Ordered ergocalciferol 15946 iu oral capsule 50,000 International_Units, 1, capsule, By Mouth, Every week, # 13 capsule, Refills 0, Tot. Refills0, Maintenance, 09/22/22 9:24:00 EDT, Route to Pharmacy Electronically, [facility],Partial fill upon patient request if the prescripti... Start Date: 09/22/22 Stop Date: 12/21/22 Status: Ordered Eucerin Plus topical lotion 1 application, Topically, 2 times a day, PRN for dry skin, # 180 mL, 0 Refills, Maintenance, 08/26/22 17:33:00 EDT, Lotion, [facility], Partial fill upon patient request if the prescription is for a schedule II opioid drug., 1 applicat... Start Date: 08/26/22 Status: Ordered fluticasone 50 mcg/inh nasal spray 2 sprays = 100 mcg, Nares, Both, Daily in AM, # 16 Gm, 3 Refills, Maintenance, 08/25/22 18:32:00 EDT, Nasal Fellow[place], [facility], Partial fill upon patient [...] 08/26/22 16:04:00 EDT, Route to Pharmacy Electronically, [facility], 176, cm, 08/17/22 14:18:00 EDT, Height Start [...] mL, 5 Refills, Maintenance, 05/27/23 8:16:00 EST, [facility], [facility], 176, cm, 05/25/23 15:45:00 EST, Height [...] tablet, 1 Refills, Maintenance, 10/17/22 16:21:00 EDT, [facility] 176, cm, 09/19/22 13:07:00 EDT, [...] 08/26/22 Stop Date: 09/02/22 Status: Ordered Pen [place], 31 G x 5 mm BD Ultra [...] 1 Refills, Maintenance, 08/25/22 18:29:00 EDT, Aerosol, [facility] Partial fill upon patient request if the prescription is for a schedule II opioid drug., 176, cm, 08/17/22 14:18:00 EDT... Start Date: 08/25/22 Status: Ordered traZODone 150 mg oral tablet 1 tablet = 150 mg, By Mouth, Daily at bedtime, # 90 tablet, 0 Refills, Maintenance, 08/09/22 13:00:00 EDT, Tablet, [facility] Partial fill upon patient [...] Refills,Maintenance, 08/25/22 18:29:00 EDT, Inhaler, [facility]., Partial fill upon patient request if the prescription is for a schedule II opi... Start Date: 08/25/22 Status: Ordered Vitamin D3 50,000 intl units oral capsule 1 capsule = 1,250 mcg, By Mouth, Every 7 days, # 13 capsule, 0 Refills, Maintenance, 09/15/23 10:57:00 EDT, Capsule, [facility], Partial fill upon patient request if the prescription is for a schedule II opioid drug., 176saqib, 09/05... Start Date: 09/15/23 Stop Date: 12/14/23 Status: Ordered ziprasidone 40 mg oral capsule 1 capsule = 40 mg, By Mouth, Daily in AM, # 90 each, 0 Refills, Maintenance, 08/09/22 13:01:00 EDT,Capsule, [facility]., Partial fill upon patient request if the prescription is for aschedule II opioid drug., saqib Jean, 08/04/22 16:02:0... Start Date: 08/09/22 Status: Ordered ziprasidone 80 mg oral capsule 1 capsule = 80 mg, By Mouth, Daily at supper, # 90 each, 0 Refills, Maintenance, 08/09/22 13:01:00 EDT, [facility]., Partial fill upon patient request if the prescription is for a schedule II opioid drug., [id number], 08/04/22 16:02:00 EDT... Start Date: 08/09/22 Status: [...] Name: José López MD, Katrin Ladd Position: [facility] Outreach Member Role: PCP Address: Address: [address] [place] [phone]- Care Team Related Persons Name: MARILU BOYD Address: [place] [address]
--- OUTSIDE RECORDS SUMMARY | 2024-01-02 13:47 | XMS_ITS | Continuity of Care Document ---
Author Organization [facility] Address [address] [place] [id number]- Care Team Providers Care Certified Peer Specialist Name Role Phone José López MD, Katrin Ladd Primary Care Jeffrey naik Encounter [facility] [place] Date(s): 08/16/23 - 12/14/23 [facility] [address] [place] [id number] Attending Physician: Celina Hayes MD [...] Maintenance, 08/25/22 18:29:00 EDT, [facility]erosol, [facility] upon patient request [...] 08/25/22 18:25:00 EDT, Route to Pharmacy Electronically, [facility]., Partial fill upon patientrequest if the prescription is for a schedule II op... Start Date: 08/25/22 Status: Ordered aspirin 81 mg oral delayed release tablet 81 mg, 1, tablet, By Mouth, Daily, # 90 tablet, Refills 1, Tot. Refills 1, Maintenance, 08/25/22 18:25:00 EDT, Route to Pharmacy Electronically, [facility]., Partial fill upon patient request if the prescription is for a schedule II opi... Start Date: 08/25/22 Status: Ordered atorvastatin 80 mg oral tablet 1 tablet = 80 mg, By Mouth, Daily, # 90 tablet, 1 Refills, Maintenance, 08/25/22 18:25:00 EDT, Tablet, [facility]., Partial fill upon patient request if [...] 08/25/22 18:25:00 EDT, Route to Pharmacy Electronically, [facility]., Partial fill upon patient request if [...] 0 Refills, Soft Stop, 09/15/23 12:07:00 EDT, [facility], Partial fill upon patient request if the prescription isfor a schedule II opioid drug., 176, cm, 09/15/23 1... Start Date: 09/15/23 Status: Ordered DEXCOM G7 RECIEVER DEXCOM G7 RECIEVER, See Instructions, # 1 each, Refills 0, Tot. Refills 0, Maintenance, Dexcom G7 stopboard assembler use as directed. e11.9, 09/14/22 10:15:00 EDT, [...] Refills, Maintenance, 12/13/22 12:20:00 EDT, Tablet, [facility], Partial fill upon patient request if the prescription is for a schedule II opioid drug., 176, cm, 10/31/22 13:... Start Date: 12/13/22 Status: Ordered ergocalciferol 36817 iu oral capsule 50,000 International_Units, 1, capsule, By Mouth, Every week, # 13 capsule, Refills 0, Tot. Refills0, Maintenance, 09/22/22 9:24:00 EDT, Route to Pharmacy Electronically, [facility],Partial fill upon patient request if the prescripti... Start Date: 09/22/22 Stop Date: 12/21/22 Status: Ordered Eucerin Plus topical lotion 1 application, Topically, 2 times a day, PRN for dry skin, # 180 mL, 0 Refills, Maintenance, 08/26/22 17:33:00 EDT, Lotion, [facility], Partial fill upon patient request if the prescription is for a schedule II opioid drug., 1 applicat... Start Date: 08/26/22 Status: Ordered fluticasone 50 mcg/inh nasal spray 2 sprays = 100 mcg, Nares, Both, Daily in AM, # 16 Gm, 3 Refills, Maintenance, 08/25/22 18:32:00 EDT, Nasal [place], [facility], Partial fill upon patient request [...] 08/26/22 16:04:00 EDT, Route to Pharmacy Electronically, [facility], 176, cm, 08/17/22 14:18:00 EDT, Height [...] 5 Refills, Maintenance, 05/27/23 8:16:00 EST, [facility], [facility], 176, cm, 05/25/23 15:45:00 EST, [...] tablet, 1 Refills, Maintenance, 10/17/22 16:21:00 EDT, [facility] 176, cm, 09/19/22 13:07:00 EDT, [...] 08/26/22 Stop Date: 09/02/22 Status: Ordered Pen [place], 31 G x 5 mm BD Ultra [...] Maintenance, 08/25/22 18:29:00 EDT, Aerosol, [facility] Partial fill upon patient request if the prescription is for a schedule II opioid drug., 176, cm, 08/17/22 14:18:00 EDT... Start Date: 08/25/22 Status: Ordered traZODone 150 mg oral tablet 1 tablet = 150 mg, By Mouth, Daily at bedtime, # 90 tablet, 0 Refills, Maintenance, 08/09/22 13:00:00 EDT, Tablet, [facility] Partial fill upon patient request [...] Gm, 0 Refills,Maintenance, 08/25/22 18:29:00 EDT, Inhaler, [facility]., Partial fill upon patient request if the prescription is for a schedule II opi... Start Date: 08/25/22 Status: Ordered Vitamin D3 50,000 intl units oral capsule 1 capsule = 1,250 mcg, By Mouth, Every 7 days, # 13 capsule, 0 Refills, Maintenance, 09/15/23 10:57:00 EDT, Capsule, [facility], Partial fill upon patient request if the prescription is for a schedule II opioid drug., 176saqib, 09/05... Start Date: 09/15/23 Stop Date: 12/14/23 Status: Ordered ziprasidone 40 mg oral capsule 1 capsule = 40 mg, By Mouth, Daily in AM, # 90 each, 0 Refills, Maintenance, 08/09/22 13:01:00 EDT,Capsule, [facility]., Partial fill upon patient request if the prescription is for aschedule II opioid drug., saqib Jean, 08/04/22 16:02:0... Start Date: 08/09/22 Status: Ordered ziprasidone 80 mg oral capsule 1 capsule = 80 mg, By Mouth, Daily at supper, # 90 each, 0 Refills, Maintenance, 08/09/22 13:01:00 EDT, [facility]., Partial fill upon patient request if [...] Name: José López MD, Katrin Ladd Position: [facility] Outreach Member Role: PCP Address: Address: [address] [place] [phone]- Care Team Related Persons Name: MARILU BOYD Address: [place] [address]
== END 2024-01-02 14:19 | disposition home or self-care (01) ==
PROVIDERS: PCP Student in an Organized Health Care Education/Training Program; Visit Provider Surgery Vascular Surgery
DX: M79.604 Pain in right leg (principal); M79.605 Pain in left leg
CPT/HCPCS: 99213

== ENCOUNTER 2024-01-25 12:46 | Outpatient (AMB) | payer MEDICAID, SELFPAY ==
--- NOTE | 2024-01-25 13:10 | MHC.OFFVIS ---
Vital Signs 01/25/24 13:11 Height 5 ft 8 in Weight 256 lb 13.416 oz BMI 39.0 BP 119/62 Blood Pressure Location Rt brachial Position Sitting Pulse 104 H Pulse Source Doppler Pulse Oximetry (%) 96 Oxygen Delivery Method Room Air Intake Visit Reasons: [email or web address] Allergies Penicillins [PENICILLINS] Allergy (Intermediate, Verified 01/02/24 13:49) RASH, DIFFICULTY BREATHING HPI HPI [email or web address]: Details: 53-year-old gentleman, nonsmoker, with underlying obesity and obstructive sleep apnea, currently under care of of sleep medicine provider pending to receive CPAP referred for evaluation of hypoxia. Patient states that while in [place] he had oxygen evaluation was told that he needs supplemental oxygen. He does not currently have supplemental oxygen. He is also following with heating element repairer and has a 2D echocardiogram that is pending. He does complain of orthopnea, lower extremity edema, and paroxysmal nocturnal dyspnea. Patient also has a history of asthma since childhood which at this time is controlled on current regimen of Advair and albuterol MDI/nebs. He denies recent exacerbations. Patient denies family history of lung disease. [facility] Medical History (Updated 01/25/24 @ 14:32 by Edison Vieira MD) HTN (hypertension) Leukocytosis Memory loss Obesity Idiopathic gout of multiple sites GERD (gastroesophageal reflux disease) Hypertensive chronic kidney disease Secondary hyperparathyroidism, renal Sleep apnea Type 2 diabetes mellitus Schizoaffective disorder Chronic pain syndrome Diabetic polyneuropathy Gout Surgical History History of esophagogastroduodenoscopy (EGD) H/O colonoscopy Family History Father Cancer Diabetes Mother Cancer Diabetes Colon cancer Family/Other Cancer Diabetes Social History Household Members: Spouse Housing: Apartment Do you presently have visiting nurse or other home services: No Alcohol intake: never Patient Tobacco Use Status: Never used Tobacco Review of Systems Const Denies daytime sleepiness, Denies excessive sweating, Denies fatigue, Denies fever(s), Denies lethargy, Denies malaise, Denies night sweats, Denies snoring and Denies weight loss Eyes Denies blurry vision and Denies itchy eyes ENT Denies nasal congestion, Denies post nasal drip, Denies sinus pain, Denies sinus pressure and Denies other ( Thrush) Card Denies chest pain, Denies pedal edema, Denies dyspnea, Reports orthopnea and Reports paroxysmal nocturnal dyspnea Resp Denies cough, Denies hemoptysis, Denies excessive phlegm production, Denies dyspnea, Denies snoring and Denies wheezing GI Denies abdominal pain and Denies heartburn Musc Denies myalgias, Denies arthralgias and Denies joint swelling Skin/Breast Denies rash Neuro Denies memory loss and Denies seizure-like activity Psych Denies abnormal sleep pattern, Denies anxiety and Denies memory loss Endo Denies excessive sweating, Denies fatigue and Denies heat intolerance Ming/Lymph Denies easy bruising Aller/Immun Denies itchy eyes, Denies seasonal rhinorrhea and Denies wheezing Physical Exam Vital Signs: Last Vital Signs Pulse 104 H 01/25/24 13:11 BP 119/62 01/25/24 13:11 Pulse Ox 96 01/25/24 13:11 Oxygen Delivery Method Room Air 01/25/24 13:11 BMI result Body Mass Index 39.0 Const General: no acute distress and alert Nutritional Appearance: obese Orientation/consciousness: Other orientation findings ( oriented) HEENT Head: Yes atraumatic Eyes General: appearance normal, both eyes and all related structures Sclerae: sclerae normal EOM: EOMs intact bilaterally Neck Neck: Yes supple Lymphatic: no lymphadenopathy noted Resp Effort & Inspection: normal respiratory effort and no use of accessory muscles Auscultation: clear to auscultation bilaterally Cardio Rate: regular rate Rhythm: regular rhythm Heart sounds: no gallops, no murmurs and no rubs Skin General skin exam: other ( warm) Extrem General: No clubbing, No cyanosis and No edema Assessment & Plan Assessment & Plan (1) Chronic respiratory failure with hypoxia: Code(s): J96.11 - Chronic respiratory failure with hypoxia Category: Medical (2) Dyspnea on exertion: Code(s): R06.09 - Other forms of dyspnea Category: Medical (3) Supplemental oxygen dependent: Code(s): Z99.81 - Dependence on supplemental oxygen Category: Medical Plan In office 6 minute walk/supplemental oxygen evaluation performed, patient require supplemental oxygen at 2 L continuous flow to maintain normal oximetry with exertion. Supplemental oxygen order placed. Underlying history of asthma now reasonably well controlled on current regimen of Advair and albuterol MDI. Continue current regimen. Will obtain full PFT. Dyspnea on exertion, likely multifactorial with contribution from underlying cardiac, pulmonary, and obesity/deconditioning. Patient has 2D echocardiogram pending. Coding Level of Care Code New Pt Level 4 (29844) Diagnoses Chronic respiratory failure with hypoxia J96.11 Dyspnea on exertion R06.09 Supplemental oxygen dependent Z99.81
[2024-01-25 13:11] VITALS: BP 119/62; PULSE 104; O2SAT 96; BMI 39.0
[2024-01-25 15:02] VITALS: PULSE 104; O2SAT 96
== END 2024-01-25 13:49 | disposition home or self-care (01) ==
PROVIDERS: PCP Student in an Organized Health Care Education/Training Program; Visit Provider Internal Medicine Pulmonary Disease
DX: J96.11 Chronic respiratory failure with hypoxia (principal); Z99.81 Dependence on supplemental oxygen
CPT/HCPCS: 94618; 99204

== ENCOUNTER → 2024-01-25 12:46 | Outpatient (BNVA) | payer MEDICAID, SELFPAY | PROVIDERS: PCP Student in an Organized Health Care Education/Training Program; Visit Provider Internal Medicine Pulmonary Disease | DX: J96.11 Chronic respiratory failure with hypoxia (principal); Z99.81 Dependence on supplemental oxygen | CPT/HCPCS: 94618; 99202 ==

== ENCOUNTER 2024-03-16 12:58 | Outpatient (REF) | payer MEDICAID, SELFPAY ==
--- NOTE | 2024-03-16 12:30 | PFT_ITS ---
Flows: FEV1: 68 % of predicted at 2.43 L FVC: 60 % of predicted at 2.72 L FEV1/FVC: 89 % Bronchodilator response: Absent Volumes: Patient unable to perform lung volumes maneuvers. Diffusion capacity: Mildly decreased, corrects to normal after adjustment for alveolar ventilation. Impression: No obstructive ventilatory defect, suggestion of restrictive ventilatory defect. No bronchodilator response. Patient unable perform lung volumes maneuvers. Suggestion of restrictive ventilatory defect with decreased diffusion capacity points to possible pulmonary parenchymal disease. Clinical correlation is advised. MTDD
== END 2024-03-16 12:59 | disposition home or self-care (01) ==
LOC: HO.RESP 12:58
PROVIDERS: PCP Student in an Organized Health Care Education/Training Program; Visit Provider Internal Medicine Pulmonary Disease
DX: R06.09 Other forms of dyspnea (principal)
CPT/HCPCS: 94010; 94640; 94727; 94729

== ENCOUNTER 2024-03-20 10:55 | Inpatient (IN) | payer MEDICAID, SELFPAY ==
[2024-03-20] VITALS (10 sets, daily range): BP systolic 113–154; BP diastolic 57–82; PULSE 94–110; RESP 14–22; TEMP 36.4–36.9; O2SAT 89–98; BMI 37.9
--- NOTE | ~2024-03-20 | XR_ITS ---
EXAMINATION: XR CHEST CLINICAL INFORMATION: Shortness of breath COMPARISON: X-ray dated November 07, 2023 TECHNIQUE: 2 views of the chest were obtained. FINDINGS: Multifocal patchy opacities throughout the right lung. No pleural effusion. No pneumothorax. Cardiomediastinal silhouette size is normal. Calcified plaque thoracic aorta. No gross acute fracture or listhesis in the thoracic spine. XR/XR chest 2V IMPRESSION: Multifocal pneumonia, right lung. Recommend follow-up until resolution since underlying neoplasm cannot be excluded. Electronically signed by: Shemar Ruiz MD 03/20/2024 12:38 PM [facility]
--- NOTE | ~2024-03-20 | US_ITS ---
EXAMINATION: US RETROPERITONEAL LIMITED (RENAL ONLY) CLINICAL INFORMATION: Acute kidney injury. COMPARISON: Abdominal ultrasound dated 07/10/2023. TECHNIQUE: Real-time imaging of the kidneys. FINDINGS: RIGHT KIDNEY: 14.0 x 5.3 x 6.0 cm (SAG x AP x TRV). The kidney is normal in size, contour, and echogenicity. Renal cortical thickness is normal. No calculi or focal parenchymal lesions. There is pelviectasis, without trevor hydronephrosis. LEFT KIDNEY: 13.8 x 6.5 x 5.6 cm (SAG x AP x TRV). The kidney is normal in size, contour, and echogenicity. Renal cortical thickness is normal. No calculi or focal parenchymal lesions. There is pelviectasis, without trevor hydronephrosis. US/US renal BI IMPRESSION: Unremarkable examination. Electronically signed by: Blake Magana MD 03/25/2024 05:16 PM [facility]
--- NOTE | 2024-03-20 11:14 | ECG_ITS ---
Test Reason : chest pain Blood Pressure : / mmHG Vent. Rate : 101 BPM Atrial Rate : 101 BPM P-R Int : 126 ms QRS Dur : 072 ms QT Int : 328 ms P-R-T Axes : 046 -18 035 degrees QTc Int : 425 ms Sinus tachycardia Otherwise normal ECG When compared with ECG of 07-NOV-2023 12:09, No significant change was found Referred By: Generic ED Physician Electronically Signed By:Jeffry Houston
[2024-03-20 11:43] LABS: Hematocrit 41.4 % (42.0-52.0); Hemoglobin 13.1 g/dl (14.0-18.0); Mean Corpuscular HGB Conc 31.6 g/dl (31.0-36.0); Mean Corpuscular Hemoglobin 28.3 pg (27.0-33.0); Mean Corpuscular Volume 89.4 fL (80.0-98.0); Mean Platelet Volume 12.9 fL (9.4-12.4); Platelet Count 290 X10*3/uL (160-400); Red Blood Count 4.63 X10*6/uL (4.60-5.80); Red Cell Distribution Width 14.6 % (11.0-16.0); White Blood Count 24.9 X10*3/uL (4.8-10.8)
[2024-03-20 12:04] LABS: Anion Gap 13 (12-20); Blood Urea Nitrogen 49 mg/dL (9-16); Calcium 9.1 mg/dL (8.4-10.2); Carbon Dioxide 23 mmol/L (22-29); Chloride 99 mmol/L (96-108); Creatinine Clr Calc Pharmacy 32.5; Estimated Glomerular Filt Rate 20; Potassium 4.6 mmol/L (3.3-5.1); Sodium 130 mmol/L (135-145)
[2024-03-20 12:06] LABS: Glucose Random 649 mg/dL (60-115)
[2024-03-20 12:10] LABS: Troponin-I High Sensitivity 12.8 ng/L (<3.5-35.0)
[2024-03-20 12:20] LABS: Band Neutrophils Percent 5 % (3-5); Basophils Abs Manual 0.2 X10*3/uL (0.0-0.2); Basophils Percent Manual 1 % (0-2); Eosinophils Absolute Manual 0.2 X10*3/uL (0.0-0.4); Eosinophils Percent Manual 1 % (0-4); Lymphocytes Absolute Manual 1.5 X10*3/uL (1.2-4.9); Lymphocytes Percent Manual 6 % (20-40); Monocytes Absolute Manual 1.7 X10*3/uL (0.1-1.2); Monocytes Percent Manual 7 % (2-11); Neutrophils Absolute Manual 21.2 X10*3/uL (2.0-8.3); Neutrophils Percent Manual 80 % (45-73)
[2024-03-20 12:21] LABS: Platelet Estimate NORMAL (NORMAL); Platelet Morphology Comment NORMAL; RBC Morphology NORMAL
[2024-03-20 12:22] LABS: Influenza A PCR NEGATIVE (Negative); Influenza B PCR NEGATIVE (Negative); Resp Syncy Virus RNA Qual PCR NEGATIVE (Negative); SARS COV2 PCR INHOUSE NEGATIVE (Negative)
--- NOTE | 2024-03-20 12:25 | ED.GENADULT ---
HPI - General Adult General Chief complaint: Dyspnea Stated complaint: Spitting up Blood Time Seen by Provider: 03/20/24 12:23 Source: patient Mode of arrival: ambulatory Limitations: no limitations History of Present Illness HPI narrative: This is a 53-year-old man with a past medical history of type 2 diabetes mellitus, hyperlipidemia, CVA with right-sided hemiparesis, COPD, REGI on CPAP, CKD, GERD who presents for evaluation of dyspnea, malaise, chest pain and bloody sputum. Patient states that he has been sick for the last 3 days. Patient states feeling very tired. Patient states no fevers, but states chills and myalgias. He states few episodes of nonbloody loose stools. He states no nausea or vomiting. He states no hematemesis. He states no urinary symptoms. He states that he has been using his albuterol inhaler which has been helping. Related Data Home Medications ?Medication ?Instructions ?Recorded ?Confirmed allopurinol 100 mg tablet 50 mg PO DAILY 11/09/22 12/27/23 blood-glucose meter,continuous 11/09/22 12/27/23 ([employer] G7 Recovery Assistant) carvedilol 25 mg tablet 25 mg PO BID 11/09/22 12/27/23 dulaglutide 4.5 mg/0.5 mL 4.5 mg subcut QWEEK 11/09/22 12/27/23 subcutaneous pen injector (Trulicity) empagliflozin 25 mg tablet 25 mg PO DAILY 11/09/22 12/27/23 furosemide 80 mg tablet 80 mg PO BID 11/09/22 12/27/23 gabapentin 800 mg tablet 800 mg PO DAILY 11/09/22 12/27/23 insulin regular hum U-500 conc 500 140 unit subcut DAILY@1200 11/09/22 12/27/23 unit/mL subcutaneous soln (Humulin R U-500 (Concentrated) Insulin) pantoprazole 40 mg tablet,delayed 40 mg PO DAILY 11/09/22 12/27/23 release trazodone 150 mg tablet 150 mg PO BEDTIME PRN Sleep 11/09/22 12/27/23 acetaminophen 500 mg tablet 1,000 mg PO Q6H PRN fever 06/08/23 12/27/23 albuterol sulfate 2.5 mg/3 mL 2.5 mg inhalation Q6H PRN wheezing 06/08/23 12/27/23 (0.083 %) solution for nebulization amlodipine 2.5 mg tablet 2.5 mg PO QAM 06/08/23 12/27/23 aspirin 81 mg chewable tablet 1 tab PO QAM 06/08/23 12/27/23 atorvastatin 80 mg tablet 80 mg PO DAILY 06/08/23 12/27/23 calcium carbonate (Calcium Antacid) 400 mg PO QAM 06/08/23 12/27/23 carboxymethylcellulose sodium 0.5 1 drp ophthalmic (eye) NEEDED 06/08/23 12/27/23 % eye drops in a dropperette dry eyes (Lubricant Eye Drops) cholecalciferol (vitamin D3) 50 50 mcg PO QAM 06/08/23 12/27/23 mcg (2,000 unit) tablet clonazepam 0.5 mg tablet 0.5 mg PO TID 06/08/23 12/27/23 divalproex 500 mg tablet,extended 1,000 mg PO BEDTIME 06/08/23 12/27/23 release 24 hr (Depakote ER) ezetimibe 10 mg tablet 10 mg PO QAM 06/08/23 12/27/23 insulin regular hum U-500 conc 500 135 unit subcut DAILY@0730 06/08/23 12/27/23 unit/mL(3 mL) subcut pen (Humulin R U-500 (Conc) Insulin Kwikpen) insulin regular hum U-500 conc 500 140 unit subcut DAILY@1730 06/08/23 12/27/23 unit/mL(3 mL) subcut pen (Humulin R U-500 (Conc) Insulin Kwikpen) lidocaine 5 % topical patch 1 patch topical DAILY PRN Pain 06/08/23 12/27/23 omega-3 300 mg-dha 120 mg-epa 180 1 cap PO BID 06/08/23 12/27/23 mg-fish oil 1,000 mg capsule tiotropium bromide 1.25 2 puff inhalation QAM 06/08/23 12/27/23 mcg/actuation mist for inhalation (Spiriva Respimat) tramadol 50 mg tablet 50 mg PO Q8H PRN severe pain 06/08/23 12/27/23 ziprasidone HCl 80 mg capsule 80 mg PO BEDTIME 06/08/23 12/27/23 (Geodon) blood-glucose sensor (Dexcom G7 #1 ea 07/28/23 12/27/23 Sensor device) fluticasone propionate 230 2 puff inhalation DAILY 07/28/23 12/27/23 mcg-salmeterol 21 mcg/actuation HFA inhaler (Advair HFA) losartan 100 mg tablet 100 mg PO QAM 07/28/23 12/27/23 pen needle, diabetic 31 gauge x #1,200 ea 07/28/23 12/27/23 3/16 (BD Ultra-Fine Mini Pen Needle) ammonium lactate 12 % lotion 1 appl topical DAILY 03/20/24 duloxetine 30 mg capsule,delayed 30 mg PO QPM 03/20/24 release duloxetine 60 mg capsule,delayed 60 mg PO QAM 03/20/24 release fluoxetine 40 mg capsule 40 mg PO DAILY 03/20/24 ketotifen fumarate 0.025 % (0.035 1 drp ophthalmic (eye) BID PRN 03/20/24 %) eye drops (Eye Itch Relief) allergies silver sulfadiazine 1 % topical 1 appl topical DAILY 03/20/24 cream (SSD) Previous Rx's ?Medication ?Instructions ?Recorded sodium,potassium,mag sulfates 17.5 See Rx Instructions PO .COMPLEX 07/28/23 gram-3.13 gram-1.6 gram oral soln #354 mL (Suprep Bowel Prep Kit) meclizine 25 mg tablet 25 mg PO TID PRN dizziness #14 tabs 11/07/23 Allergies Allergy/AdvReac Type Severity Reaction Status Date / Time Penicillins [PENICILLINS] Allergy Intermediate RASH, Verified 03/20/24 11:17 DIFFICULTY BREATHING Review of Systems Review of Systems: ROS as per HPI [facility] Past Medical History Medical History (Updated 03/20/24 @ 16:33 by Isael Duran MD) HTN (hypertension) Leukocytosis Memory loss Obesity Idiopathic gout of multiple sites GERD (gastroesophageal reflux disease) Hypertensive chronic kidney disease Secondary hyperparathyroidism, renal Sleep apnea Type 2 diabetes mellitus Schizoaffective disorder Chronic pain syndrome Diabetic polyneuropathy Gout Surgical History History of esophagogastroduodenoscopy (EGD) H/O colonoscopy Family History Family History Father Cancer Diabetes Mother Cancer Diabetes Colon cancer Family/Other Cancer Diabetes Social History Social History Household Members: Spouse Housing: Apartment Do you presently have visiting nurse or other home services: No Alcohol intake: never Patient Tobacco Use Status: Never used Tobacco Advance Directives: No Advance Directives Information Provided: Yes Physical Exam ED Vital Signs: Vital Signs - 24 hr 03/20/24 11:01 03/20/24 13:00 03/20/24 13:38 Temperature 97.7 F 98.4 F Pulse Rate 110 H 94 100 Respiratory Rate 20 18 20 Blood Pressure 113/65 140/57 H Pulse Oximetry 89 L 96 Oxygen Delivery Method Room Air Nasal Cannula Velazquez Oxygen Flow Rate 2 03/20/24 14:26 03/20/24 15:30 Temperature 97.5 F Pulse Rate 98 104 H Respiratory Rate 14 16 Blood Pressure 154/77 H Pulse Oximetry 98 Oxygen Delivery Method Oxymask Oxygen Flow Rate 4 BMI result Body Mass Index 37.9 Gen: NAD, awake, alert, answering questions and following commands HEENT: NCAT, EOMI, normal conjunctiva, dry oral mucosa CV: Tachycardic rate, regular rhythm Pulm: No increased work of breathing at rest, no respiratory distress, few scattered expiratory wheezes in the posterior bases, coarse right-sided lung sounds anteriorly GI: Soft, NTND Neuro: GCS 15 Medications Administered Generic Name Dose Route Start Last Admin Trade Name Freq PRN Reason Stop Dose Admin Lactated Ringer's 1,000 mls @ 100 mls/hr 03/20/24 14:30 03/20/24 15:04 Lr IVCONT 100 mls/hr .Q10H DAMIAN Administration Discontinued Medications Generic Name Dose Route Start Last Admin Trade Name Freq PRN Reason Stop Dose Admin Albuterol Sulfate 2.5 mg/ 5 mg 03/20/24 12:41 03/20/24 12:57 Albuterol Sulfate 2.5 mg INHALE 03/20/24 12:42 5 mg ONCE ONE Administration Albuterol Sulfate 2.5 mg/ 5 mg 03/20/24 14:22 03/20/24 15:30 Albuterol Sulfate 2.5 mg INHALE 03/20/24 14:23 5 mg ONCE ONE Administration Cefepime HCl 1 gm/ Sodium 50 mls @ 100 mls/hr 03/20/24 12:30 03/20/24 13:27 Chloride IV 03/20/24 12:59 Infused ONCE ONE Infusion Doxycycline Hyclate 100 mg/ 250 mls @ 166.67 mls/hr 03/20/24 12:33 03/20/24 15:07 Sodium Chloride IV 03/20/24 14:02 Infused ONCE ONE Infusion Lactated Ringer's 3,492 mls @ 3,492 mls/hr 03/20/24 12:43 03/20/24 14:28 Lr 30 ml/kg infuse over 1 hr (3492 ml) 03/20/24 13:42 Infused IV Infusion .Q1H ONE Insulin Human Lispro 10 unit 03/20/24 14:35 03/20/24 15:06 Insulin Lispro 100 Unit/Ml 3 Ml Vial SUBCUT 03/20/24 14:36 10 unit ONCE ONE Administration Medical Decision Making Medical Decision Making [facility] Narrative: 1231 - this is a 53yom who presents with bloody sputum production, chest pain and dyspnea. he triggers for sepsis given tachycardia and hypoxia. Labs obtained prior to my medical evaluation are notable for leukocytosis with a white blood cell count of 24.9 and neutrophilia. Metabolic panel is notable for acute kidney injury with BUN 49 and creatinine 3.3 (previous creatinine 2.32), I considered diabetic ketoacidosis but anion gap reassuring at 13 so I have very low clinical suspicion for diabetic ketoacidosis, beta hydroxybutyrate further reassuring at 0.07, I reviewed EKG as below which demonstrates no ischemic changes, troponin 12.8 (will obtain serial troponin - though low clinical suspicion for ACS at this time), there is hyperglycemia with glucose of 649 (will provide 30 cc/kilos IV LR for sepsis fluid bolus; plan to monitor glucoses closely), patient is awake and alert with no altered mentation so despite considering hyperglycemic hyperosmolar syndrome I have low suspicion for this as well, patient is treated broadly with cefepime and doxycycline. I reviewed chest x-ray as below which is concerning for right-sided pneumonia. I suspect this is etiology of patient's symptoms and bloody sputum. Lower suspicion for pulmonary embolism given chest x-ray findings and clinical history. Patient is further provided nebulized bronchodilator therapy given evidence of wheezing on exam consistent with a bronchospasm. I considered corticosteroids, but I suspect that primary source of symptoms are secondary to bacterial pneumonia and for this reason corticosteroids are not provided at this time. Further, corticosteroids would exacerbate hyperglycemia. 1313 - venous blood gas consistent with mild respiratory acidosis with a pH of 7.27, pCO2 55 and HC03 26. I considered noninvasive mechanical ventilation given acute hypercarbia, but patient is very well-appearing and does not appear to have any respiratory distress. A component of this may be secondary to the patient's known obstructive sleep apnea. Certainly he will benefit from continued nightly CPAP, but at this time there is no indication for noninvasive mechanical ventilation. 1438 - remainder of patient's medical record is reassuring. There is no coagulopathy. Glucose is improving to 443 after 2 L of IV LR. Given ongoing hemodynamic stability with a map greater than 65 mm Hg and concern for potentially induced fluid overyload we will withhold completion of 30 cc/kilos IV fluid bolus as per sepsis protocol and initiate maintenance fluids at 100 cc per hour with IV LR. We will provide sliding-scale insulin lispro with 10 units of subcutaneous insulin lispro for glucose of 443. Lactic acid reassuring at 1.7. Patient reports making urine here in the emergency room after 2 L of IV fluids. Patient oxygenating well on 4 liters/minute OxyMask at this time. I discussed case and management with admitting hospitalist and patient is admitted in stable and improved condition for further workup and management. Critical Care Time: A total of 75 minutes spent in direct patient care with coordinating critical resuscitation, procedures, reviewing records, discussing with consultants, reviewing labs, and/or managing patient. Admission/Observation Consideration of admission/observation: Escalation of care including admission/observation considered Consult Healthcare Provider Management of the patient was discussed with: Hospitalist Lab Data MDM Lab Attestation statement: I reviewed the patient's lab results. 03/20/24 11:36 03/20/24 11:36 Labs: Lab Results 03/20/24 03/20/24 03/20/24 Range/Units 11:36 12:58 13:06 WBC 24.9 H (4.8-10.8) X10*3/uL RBC 4.63 (4.60-5.80) X10*6/uL Hgb 13.1 L (14.0-18.0) g/dl Hct 41.4 L (42.0-52.0) % MCV 89.4 (80.0-98.0) fL MCH 28.3 (27.0-33.0) pg MCHC 31.6 (31.0-36.0) g/dl RDW 14.6 (11.0-16.0) % Plt Count 290 (160-400) X10*3/uL MPV 12.9 H (9.4-12.4) fL Immature Gran % (Auto) Cancelled Neut % (Auto) Cancelled Lymph % (Auto) Cancelled [place] % (Auto) Cancelled Eos % (Auto) Cancelled Baso % (Auto) Cancelled Lymph # (Auto) Cancelled [place] # (Auto) Cancelled Eos # (Auto) Cancelled Baso # (Auto) Cancelled Abs Immat Gran (auto) Cancelled Absolute Neuts (auto) Cancelled Absolute Nucleated RBC 0.000 (0.0-0.012) X10*3/uL Nucleated RBC % (auto) 0.0 (0.0-0.2) /100WBC Neutrophils % (Manual) 80 H (45-73) % Band Neutrophils % 5 (3-5) % Lymphocytes % (Manual) 6 L (20-40) % Monocytes % (Manual) 7 (2-11) % Eosinophils % (Manual) 1 (0-4) % Basophils % (Manual) 1 (0-2) % Abs Neuts (Manual) 21.2 H (2.0-8.3) X10*3/uL Lymphocytes # (Manual) 1.5 (1.2-4.9) X10*3/uL Monocytes # (Manual) 1.7 H (0.1-1.2) X10*3/uL Eosinophils # (Manual) 0.2 (0.0-0.4) X10*3/uL Basophils # (Manual) 0.2 (0.0-0.2) X10*3/uL Platelet Estimate NORMAL (NORMAL) Plt Morphology Comment NORMAL RBC Morphology NORMAL PT 11.4 (10.9-12.4) SEC INR 1.0 (0.9-1.1) APTT 31.7 (26.0-36.8) SEC VBG pH 7.27 L (7.32-7.43) VBG pCO2 55 mmHg VBG pO2 53 mmHg VBG HCO3 26 (22-26) mmol/L VBG O2 Saturation 76.0 % VBG Base Excess -1.6 mmol/L Sodium 130 L (135-145) mmol/L Potassium 4.6 (3.3-5.1) mmol/L Chloride 99 (96-108) mmol/L Carbon Dioxide 23 (22-29) mmol/L Anion Gap 13 (12-20) BUN 49 H (9-16) mg/dL Creatinine 3.30 H (0.5-1.4) mg/dL Estim Creat Clear Calc 32.5 Estimated GFR 20 POC Glucose (60-115) mg/dL Random Glucose 649 H* (60-115) mg/dL Lactic Acid 1.7 (0.5-2.0) mmol/L Calcium 9.1 (8.4-10.2) mg/dL Total Bilirubin 0.3 (0.0-1.0) mg/dL Direct Bilirubin 0.1 (0.0-0.5) mg/dL AST 16 (5-37) U/L ALT 11 (0-40) U/L Alkaline Phosphatase 128 H (39-117) U/L Troponin I High Sens 12.8 (<3.5-35.0) ng/L Total Protein 5.9 L (6.5-8.0) g/dL Albumin 2.4 L (3.5-5.0) g/dL Beta-Hydroxybutyrate 0.07 (0.02-0.27) mmol/L Influenza Type A (PCR) NEGATIVE (Negative) Influenza Type B (PCR) NEGATIVE (Negative) RSV RNA Qual (PCR) NEGATIVE (Negative) SARS-CoV-2 RNA (RT-PCR) NEGATIVE (Negative) 03/20/24 03/20/24 Range/Units 14:26 15:43 WBC (4.8-10.8) X10*3/uL RBC (4.60-5.80) X10*6/uL Hgb (14.0-18.0) g/dl Hct (42.0-52.0) % MCV (80.0-98.0) fL MCH (27.0-33.0) pg MCHC (31.0-36.0) g/dl RDW (11.0-16.0) % Plt Count (160-400) X10*3/uL MPV (9.4-12.4) fL Immature Gran % (Auto) Neut % (Auto) Lymph % (Auto) [place] % (Auto) Eos % (Auto) Baso % (Auto) Lymph # (Auto) [place] # (Auto) Eos # (Auto) Baso # (Auto) Abs Immat Gran (auto) Absolute Neuts (auto) Absolute Nucleated RBC (0.0-0.012) X10*3/uL Nucleated RBC % (auto) (0.0-0.2) /100WBC Neutrophils % (Manual) (45-73) % Band Neutrophils % (3-5) % Lymphocytes % (Manual) (20-40) % Monocytes % (Manual) (2-11) % Eosinophils % (Manual) (0-4) % Basophils % (Manual) (0-2) % Abs Neuts (Manual) (2.0-8.3) X10*3/uL Lymphocytes # (Manual) (1.2-4.9) X10*3/uL Monocytes # (Manual) (0.1-1.2) X10*3/uL Eosinophils # (Manual) (0.0-0.4) X10*3/uL Basophils # (Manual) (0.0-0.2) X10*3/uL Platelet Estimate (NORMAL) Plt Morphology Comment RBC Morphology PT (10.9-12.4) SEC INR (0.9-1.1) APTT (26.0-36.8) SEC VBG pH (7.32-7.43) VBG pCO2 mmHg VBG pO2 mmHg VBG HCO3 (22-26) mmol/L VBG O2 Saturation % VBG Base Excess mmol/L Sodium (135-145) mmol/L Potassium (3.3-5.1) mmol/L Chloride (96-108) mmol/L Carbon Dioxide (22-29) mmol/L Anion Gap (12-20) BUN (9-16) mg/dL Creatinine (0.5-1.4) mg/dL Estim Creat Clear Calc Estimated GFR POC Glucose 443 H* 460 H* (60-115) mg/dL Random Glucose (60-115) mg/dL Lactic Acid (0.5-2.0) mmol/L Calcium (8.4-10.2) mg/dL Total Bilirubin (0.0-1.0) mg/dL Direct Bilirubin (0.0-0.5) mg/dL AST (5-37) U/L ALT (0-40) U/L Alkaline Phosphatase (39-117) U/L Troponin I High Sens (<3.5-35.0) ng/L Total Protein (6.5-8.0) g/dL Albumin (3.5-5.0) g/dL Beta-Hydroxybutyrate (0.02-0.27) mmol/L Influenza Type A (PCR) (Negative) Influenza Type B (PCR) (Negative) RSV RNA Qual (PCR) (Negative) SARS-CoV-2 RNA (RT-PCR) (Negative) Independent Interpretation I performed an independent interpretation of an: EKG and Plain X-Ray Interpretation: I independently reviewed and interpreted patient's EKG which shows sinus tachycardia at 101bpm, CT 126, QRS 72, QTc 425, no STEMI. I independently reviewed and interpreted patient's chest x-ray, which is consistent with right-sided multifocal pneumonia and is otherwise without pneumothorax or pleural effusion Radiology Impression Discussion of test interpretation with radiology: I have reviewed the radiologist's reading. Radiologist Impression: XR/XR chest 2V IMPRESSION: Multifocal pneumonia, right lung. Recommend follow-up until resolution since underlying neoplasm cannot be excluded. Electronically signed by: Shemar Ruiz MD 03/20/2024 12:38 PM [facility] Dictated By: Shemar Qiu MD Signed By: <Electronically signed by Shemar Ly MD in [place]> 03/20/24 1238 Discharge Plan Discharge Clinical Impression: Multifocal pneumonia, Leukocytosis, Acute kidney injury, Acute hyperglycemia, Respiratory failure with hypoxia and hypercapnia Patient Disposition: Admitted As Inpatient
[2024-03-20 12:39] LABS: Beta-Hydroxybutyrate 0.07 mmol/L (0.02-0.27)
[2024-03-20] MEDS: LACTATED RINGERS 3492 ML IV (12:48)
[2024-03-20] MEDS: Albuterol Sulfate 2.5 MG, Albuterol Sulfate (0.083%) 2.5 MG 5 MG INHALE ×2 (12:57→15:30)
[2024-03-20] MEDS: cefEPime HCl 1 GM in 0.9 % Sodium Chloride 50 ML IV (12:59)
[2024-03-20 13:11] LABS: VBG Base Excess -1.6 mmol/L; VBG HCO3 26 mmol/L (22-26); VBG pCO2 55 mmHg; VBG pH 7.27 (7.32-7.43); VBG pO2 53 mmHg
[2024-03-20 13:18] LABS: Prothrombin Time 11.4 SEC (10.9-12.4)
[2024-03-20 13:20] LABS: Partial Thromboplastin Time 31.7 SEC (26.0-36.8)
[2024-03-20 13:22] LABS: Lactic Acid 1.7 mmol/L (0.5-2.0)
[2024-03-20 13:24] LABS: Venous Blood Gas Refer to POC result
[2024-03-20] MEDS: Doxycycline Hyclate 100 MG in 0.9 % Sodium Chloride 250 ML 166.67 MG IV (13:29)
[2024-03-20 13:47] LABS: Alanine Aminotransferase 11 U/L (0-40); Albumin Level 2.4 g/dL (3.5-5.0); Aspartate Amino Transferase 16 U/L (5-37); Bilirubin Direct 0.1 mg/dL (0.0-0.5); Bilirubin Total 0.3 mg/dL (0.0-1.0); Total Protein 5.9 g/dL (6.5-8.0)
[2024-03-20 13:57] LABS: Alkaline Phosphatase 128 U/L (39-117)
--- NOTE | 2024-03-20 14:15 | PC.NURSE ---
patient noted to desat down to 59% on 2lNC. patient was asleep when this RN walked in the room. patient woken up, sat up, o2 increased to 4lNC, patient recovered quickly. MD espinoza
[2024-03-20 14:29] LABS: Glucose, Whole Blood 443 mg/dL (60-115)
--- NOTE | 2024-03-20 14:30 | PC.NURSE ---
patient had a second episode desat down to 71% on 4lNC, patient briefly placed on non rebreather sats recovered to 98%. patient placed on oxymask 4l, satting 98%. ED provider at bedside. requested fluids to be DC, patient got a total of 2000ML LR.
[2024-03-20] MEDS: Lactated Ringers 1,000 ML 100 ML IVCONT (15:04)
[2024-03-20] MEDS: Insulin Lispro 100 UNIT/ML 3 ML VIAL 10 UNIT SUBCUT (15:06)
--- NOTE | 2024-03-20 15:09 | PM.IMHP ---
History of Present Illness Date of Service: 03/20/24 Chief Complaint: SOB Pt is a 53-year-old Latvian-speaking male with a PMH significant for?COPD on home 2L O2 prn, HTN, HLD, CVA w/ right-sided hemiparesis, insulin-dependent type 2 diabetes, CKD 3, REGI not yet approved fro CPAP, gout, and GERD who presents to the ED with?SOB, hemoptysis, and fatigue x2-3 days. Reports phlegm has been yellow-colored and flecked with blood. Also complains of chest tightness associated with deep breathing and cough, as well as 2 episodes of loose stool during this time. Has been using home inhalers and prn O2 constantly with little relief. Reports has been eating and drinking normally. No nausea or vomiting. Denies fever or chills. Patient also states has been compliant with all of his medications, though he is overall a poor historian and it is unclear how compliant he is with his diabetic medications. Reports sugars are normally in the 200-300s. In the ED pt was tachycardic up to 110, hypertensive up to 154/77, and desatting into the 80s on RA and improved to 95% on 4L OxyMask. Labs were significant for leukocytosis 24.9, sodium 130, BUN 49, creatinine 3.30 (elevated from 2.32 on 11/06), random glucose 649, alk-phos 120, protein 5.9, and albumin 2.5. Stable H&H. Lactic acid WNL at 1.7. Initial troponin 12.8. Beta hydroxybutyrate WNL at 0.07. VBG pH 7.27 with pCO2 55 and bicarb 26. Tested negative for flu, RSV, COVID. CXR showed multifocal pneumonia of right lung. EKG demonstrated normal sinus rhythm without evidence of significant ischemic changes, similar to previous. Pt was treated with 3.5 L IVF, DuoNebs, cefepime, doxycycline, and insulin lispro 10 units. Pt will be admitted to the hospital for treatment and further evaluation of NICOLAS, hyperglycemia, and acute on chronic hypoxic respiratory failure in the setting of multifocal pneumonia with sepsis. Review of Systems Review of Systems: Negative except for that which is stated in the [facility] Medical History (Updated 03/20/24 @ 16:33 by Isael Duran MD) HTN (hypertension) Leukocytosis Memory loss Obesity Idiopathic gout of multiple sites GERD (gastroesophageal reflux disease) Hypertensive chronic kidney disease Secondary hyperparathyroidism, renal Sleep apnea Type 2 diabetes mellitus Schizoaffective disorder Chronic pain syndrome Diabetic polyneuropathy Gout Family History Father Cancer Diabetes Mother Cancer Diabetes Colon cancer Family/Other Cancer Diabetes Surgical History History of esophagogastroduodenoscopy (EGD) H/O colonoscopy Social History Household Members: Spouse Housing: Apartment Do you presently have visiting nurse or other home services: No Alcohol intake: never Patient Tobacco Use Status: Never used Tobacco Advance Directives: No Advance Directives Information Provided: Yes Nutrition Risks: No Nutritional Risk Meds Allergies Allergy/AdvReac Type Severity Reaction Status Date / Time Penicillins [PENICILLINS] Allergy Intermediate RASH, Verified 03/20/24 11:17 DIFFICULTY BREATHING Active Medications: Current Medications Lactated Ringer's (Lr) 1,000 mls @ 100 mls/hr IVCONT .Q10H DAMIAN Last Admin: 03/20/24 15:04 Dose: 100 mls/hr Home Medications ?Medication ?Instructions ?Recorded ?Confirmed ?Last Taken ?Type allopurinol 100 mg tablet 50 mg PO DAILY 11/09/22 03/20/24 03/20/24 History blood-glucose meter,continuous 11/09/22 12/27/23 Unknown [facility]) carvedilol 25 mg tablet 25 mg PO BID 11/09/22 03/20/24 03/20/24 History empagliflozin 25 mg tablet 25 mg PO DAILY 11/09/22 03/20/24 03/20/24 History furosemide 80 mg tablet 80 mg PO BID 11/09/22 03/20/24 03/20/24 History gabapentin 800 mg tablet 800 mg PO DAILY 11/09/22 03/20/24 03/20/24 History pantoprazole 40 mg tablet,delayed 40 mg PO DAILY 11/09/22 03/20/24 03/20/24 History release trazodone 150 mg tablet 150 mg PO BEDTIME PRN Sleep 11/09/22 03/20/24 03/20/24 History acetaminophen 500 mg tablet 1,000 mg PO Q6H PRN fever 06/08/23 03/20/24 03/20/24 History albuterol sulfate 2.5 mg/3 mL 2.5 mg inhalation Q6H PRN wheezing 06/08/23 03/20/24 03/20/24 History (0.083 %) solution for nebulization amlodipine 2.5 mg tablet 2.5 mg PO DAILY 06/08/23 03/20/24 03/20/24 History aspirin 81 mg chewable tablet 1 tab PO DAILY 06/08/23 03/20/24 03/20/24 History atorvastatin 80 mg tablet 80 mg PO DAILY 06/08/23 03/20/24 03/20/24 History calcium carbonate (Calcium Antacid) 400 mg PO DAILY 06/08/23 03/20/24 03/20/24 History carboxymethylcellulose sodium 0.5 1 drp ophthalmic (eye) NEEDED 06/08/23 03/20/24 03/20/24 History % eye drops in a dropperette dry eyes (Lubricant Eye Drops) cholecalciferol (vitamin D3) 50 50 mcg PO DAILY 06/08/23 03/20/24 03/20/24 History mcg (2,000 unit) tablet clonazepam 0.5 mg tablet 0.5 mg PO TID 06/08/23 03/20/24 03/20/24 History divalproex 500 mg tablet,extended 1,000 mg PO BEDTIME 06/08/23 03/20/24 03/20/24 History release 24 hr (Depakote ER) ezetimibe 10 mg tablet 10 mg PO DAILY 06/08/23 03/20/24 03/20/24 History insulin regular hum U-500 conc 500 155 unit subcut BEDTIME 06/08/23 03/20/24 03/20/24 History unit/mL(3 mL) subcut pen (Humulin R U-500 (Conc) Insulin Kwikpen) insulin regular hum U-500 conc 500 250 unit subcut DAILY 06/08/23 03/20/24 03/20/24 History unit/mL(3 mL) subcut pen (Humulin R U-500 (Conc) Insulin Kwikpen) lidocaine 5 % topical patch 1 patch topical DAILY PRN Pain 06/08/23 03/20/2424 History omega-3 300 mg-dha 120 mg-epa 180 1 cap PO BID 06/08/23 03/20/24 03/20/24 History mg-fish oil 1,000 mg capsule tiotropium bromide 1.25 2 puff inhalation DAILY 06/08/23 03/20/24 03/20/24 History mcg/actuation mist for inhalation (Spiriva Respimat) tramadol 50 mg tablet 50 mg PO Q8H PRN severe pain 06/08/23 03/20/24 03/20/24 History ziprasidone HCl 80 mg capsule 80 mg PO BEDTIME 06/08/23 03/20/24 03/20/24 History (Darlyn) blood-glucose sensor (Dexcom G7 #1 ea 07/28/23 12/27/23 Unknown History Sensor device) fluticasone propionate 230 2 puff inhalation DAILY 07/28/23 03/20/24 03/20/24 History mcg-salmeterol 21 mcg/actuation HFA inhaler (Advair HFA) losartan 100 mg tablet 100 mg PO DAILY 07/28/23 03/20/24 03/20/24 History pen needle, diabetic 31 gauge x #1,200 ea 07/28/23 12/27/23 03/20/24 History 3/16 (BD Ultra-Fine Mini Pen Needle) ammonium lactate 12 % lotion 1 appl topical DAILY 03/20/24 03/20/24 03/20/24 History duloxetine 30 mg capsule,delayed 30 mg PO BEDTIME 03/20/24 03/20/24 03/20/24 History release duloxetine 60 mg capsule,delayed 60 mg PO DAILY 03/20/24 03/20/24 03/20/24 History release fluoxetine 40 mg capsule 40 mg PO DAILY 03/20/24 03/20/24 03/20/24 History ketotifen fumarate 0.025 % (0.035 1 drp ophthalmic (eye) BID PRN 03/20/24 03/20/24 03/20/24 History %) eye drops (Eye Itch Relief) allergies silver sulfadiazine 1 % topical 1 appl topical DAILY 03/20/24 03/20/24 03/20/24 History cream (SSD) Physical Exam Vital Signs and Narrative: Vital Signs: Last Vital Signs Temp 97.5 F 03/20/24 14:26 Pulse 98 03/20/24 14:26 Resp 14 03/20/24 14:26 BP 154/77 H 03/20/24 14:26 Pulse Ox 98 03/20/24 14:26 O2 Del Method Oxymask 03/20/24 14:26 O2 Flow Rate 4 03/20/24 14:26 BMI result Body Mass Index 37.9 General: AOx2, not clearly to date. In no acute distress Resp: Diffuse wheezing and rhonchi bilaterally. CVS: S1, S2, regular rhythm, tachycardic GI: +BS, NT, obese Skin: Warm, dry Neuro: Cranial nerves II-XII grossly intact bilaterally. Motor grossly intact bilaterally Extremities: No edema Psych: Appropriate affect Results Labs 03/20/24 11:36 03/20/24 11:36 Labs: Laboratory Results - last 24 hr 03/20/24 03/20/24 03/20/24 11:36 12:58 13:06 MCV 89.4 MCH 28.3 MCHC 31.6 RDW 14.6 Plt Count 290 MPV 12.9 H Immature Gran % (Auto) Cancelled Neut % (Auto) Cancelled Lymph % (Auto) Cancelled [place] % (Auto) Cancelled Eos % (Auto) Cancelled Baso % (Auto) Cancelled Lymph # (Auto) Cancelled [place] # (Auto) Cancelled Eos # (Auto) Cancelled Baso # (Auto) Cancelled Abs Immat Gran (auto) Cancelled Absolute Neuts (auto) Cancelled Absolute Nucleated RBC 0.000 Nucleated RBC % (auto) 0.0 Neutrophils % (Manual) 80 H Band Neutrophils % 5 Lymphocytes % (Manual) 6 L Monocytes % (Manual) 7 Eosinophils % (Manual) 1 Basophils % (Manual) 1 Abs Neuts (Manual) 21.2 H Lymphocytes # (Manual) 1.5 Monocytes # (Manual) 1.7 H Eosinophils # (Manual) 0.2 Basophils # (Manual) 0.2 Platelet Estimate NORMAL Plt Morphology Comment NORMAL RBC Morphology NORMAL PT 11.4 INR 1.0 APTT 31.7 VBG pH 7.27 L VBG pCO2 55 VBG pO2 53 VBG HCO3 26 VBG O2 Saturation 76.0 VBG Base Excess -1.6 Anion Gap 13 Estim Creat Clear Calc 32.5 Estimated GFR 20 POC Glucose Random Glucose 649 H* Lactic Acid 1.7 Calcium 9.1 Total Bilirubin 0.3 Direct Bilirubin 0.1 AST 16 ALT 11 Alkaline Phosphatase 128 H Troponin I High Sens 12.8 Total Protein 5.9 L Albumin 2.4 L Beta-Hydroxybutyrate 0.07 Influenza Type A (PCR) NEGATIVE Influenza Type B (PCR) NEGATIVE RSV RNA Qual (PCR) NEGATIVE SARS-CoV-2 RNA (RT-PCR) NEGATIVE 03/20/24 14:26 MCV MCH MCHC RDW Plt Count MPV Immature Gran % (Auto) Neut % (Auto) Lymph % (Auto) [place] % (Auto) Eos % (Auto) Baso % (Auto) Lymph # (Auto) [place] # (Auto) Eos # (Auto) Baso # (Auto) Abs Immat Gran (auto) Absolute Neuts (auto) Absolute Nucleated RBC Nucleated RBC % (auto) Neutrophils % (Manual) Band Neutrophils % Lymphocytes % (Manual) Monocytes % (Manual) Eosinophils % (Manual) Basophils % (Manual) Abs Neuts (Manual) Lymphocytes # (Manual) Monocytes # (Manual) Eosinophils # (Manual) Basophils # (Manual) Platelet Estimate Plt Morphology Comment RBC Morphology PT INR APTT VBG pH VBG pCO2 VBG pO2 VBG HCO3 VBG O2 Saturation VBG Base Excess Anion Gap Estim Creat Clear Calc Estimated GFR POC Glucose 443 H* Random Glucose Lactic Acid Calcium Total Bilirubin Direct Bilirubin AST ALT Alkaline Phosphatase Troponin I High Sens Total Protein Albumin Beta-Hydroxybutyrate Influenza Type A (PCR) Influenza Type B (PCR) RSV RNA Qual (PCR) SARS-CoV-2 RNA (RT-PCR) Imaging Radiologist's Impressions: Impressions Chest X-Ray 03/20/24 12:05 IMPRESSION: Multifocal pneumonia, right lung. Recommend follow-up until resolution since underlying neoplasm cannot be excluded. Electronically signed by: Shemar Ruiz MD 03/20/2024 12:38 PM [facility] Assessment and Plan (1) Multifocal pneumonia: Status: Acute (2) NICOLAS (acute kidney injury): Status: Acute (3) Hyperglycemia: Status: Acute Plan Pt is a 53-year-old Latvian-speaking male with a PMH significant for?COPD on home 2L O2 prn, HTN, HLD, CVA w/ right-sided hemiparesis, insulin-dependent type 2 diabetes, CKD 3, GERD, REGI not yet approved fro CPAP, and gout who presents to the ED with?SOB, hemoptysis, and fatigue x2-3 days. Reports phlegm has been yellow-colored and flecked with blood. Pt will be admitted to the hospital for treatment and further evaluation of NICOLAS, hyperglycemia, and acute on chronic hypoxic respiratory failure in the setting of multifocal pneumonia with sepsis. Acute on chronic hypoxic respiratory failure in the setting of multifocal pneumonia with sepsis Desatting to 80s on RA, CXR showing right-sided multifocal pneumonia Meets sepsis criteria: Tachycardia, leukocytosis well above baseline; lactic acid WNL Patient given IVF and started on broad-spectrum antibiotics in the ED Will treat with ceftriaxone and doxycycline, started 03/20/2024 DuoNebs guaifenesin Titrate supplemental O2 to 2L >90-92, wean as tolerated Acute respiratory acidosis, mild VB pH 7.27 with pCO2 55 and bicarb 26 Treat as above NICOLAS Creatinine, 3.30 elevated from 2.32 on 11/06 Patient received IVF in the ED Follow renal function Poorly controlled insulin-dependent type 2 diabetes Patient hyperglycemic at 649 at time of presentation Given 10 units insulin in the ED Will place on sliding scale Lantus, start at 25 units bid Check A1c Diabetic diet Hyponatremia, mild Patient's sodium 130 at time of presentation Received IVF in the ED Trend labs HTN Continue amlodipine, carvedilol, losartan HLD Continue statin, ezetimibe Gout Continue allopurinol Mood disorder Continue mood stabilizers Full Code Attending:?Dr. To DVT Prophylaxis: Lovenox Pt will require a hospitalization of at least two nights for treatment of?NICOLAS, hyperglycemia, and acute on chronic hypoxic respiratory failure in the setting of pneumonia with sepsis. Given multiple comorbidities and multiple reasons for hospitalization, they will require inpatient level of care for administration of IV antibiotics, IV fluid, and close monitoring of labs. Quality Stroke Does the patient have a stroke diagnosis?: No VTE Prior VTE?: No VTE Risk Level:: Medical - moderate - high VTE Device Contraindication: Treatment Not Indicated VTE Drug Contraindication: N/A - Med Ordered
[2024-03-20 15:46] LABS: Glucose, Whole Blood 460 mg/dL (60-115)
[2024-03-20 17:02] LABS: Estimated Average Glucose 329 mg/dL; Hemoglobin A1C 422.3512 umol/L; Hemoglobin A1c % 13.1 % (<6.0); Total Hemoglobin (HGBA1C) 3532.9581 umol/L
--- NOTE | 2024-03-20 17:36 | PHA.MEDREC ---
Addendum entered by Chester Dickson 03/20/24 19:16: reviewed, spoke with Albertofaye Екатерина concerning pt's insulin. He is starting cautiously with Glargine BID and sliding scale Original Note: Pharmacy Consult ? Medication Reconciliation Pharmacy has completed the medication reconciliation. Spoke with patient and family at bedside earlier and the patient was not able to confirm much but stated his was going to be in after 5. I went back after 5 and spoke with patients and she was able to confirm the medications. Both the patient and his confirmed the Humalin Insulin and stressed and stated he is doing 250 units in the morning and 155 units at bedtime and wanted to make sure that was imputed in out system. They confirmed the Clonazepam 0.5mg tab but the patient stated he does not want to take it while in the hospital. They confirmed he is still taking the Allopurinol 100mg tab but is not sure if it is a full tablet or half tab like written on the script, I called and spoke with [facility] they state it was discontinued by the patient Dr on 11/17/2023. They confirmed the Amlodipine tablet but was not sure of the dosing, [facility] confirmed he got Amlodipine 5mg tabs on 01/31 for 90 days. They also confirmed the patient is still taking Atovastatin and the patient confirmed it is 80mg daily, after speaking with [facility] they have no claims for it but we have claims from [facility] that it was filled 12/03 for 90 days but [facility] state they do not have that. They also confirmed the patient is still taking Ezetimibe once daily, [facility] claims he has not gotten it since 12/03 for 90 days and that matches our claims. They confirmed also he is taking the Pantoprazole 40mg tab once daily even tho in claims and [facility] they have no history of that being filled with them. The patient confirmed he is taking Sodium,Potassium,Mag Sulfates 17.5 gram-3.13 gram-1.6 gram oral soln but could not confirm how he is suppose to be taking it. The confirmed her husbands Meclizine and states he only uses as needed for the dizziness. They confirmed he is still taking the Tramadol 50mg tab as needed for the pain. The patient confirmed he is taking Ziprazodone 80mg tab as needed at bedtime. The patient confirmed he took all his morning medications this morning and his night meds and Insulin yesterday.
[2024-03-20] MEDS: Enoxaparin Sodium 40 MG/0.4 ML SYRINGE SUBCUT (18:06)
[2024-03-20 18:23] LABS: Glucose, Whole Blood 331 mg/dL (60-115)
[2024-03-20] MEDS: Insulin Lispro 100 UNIT/ML 3 ML VIAL SUBCUT ×2 (18:27→22:36)
--- NOTE | 2024-03-20 18:29 | PC.NURSE ---
patient sitting up eating dinner, placed on 4l NC to eat, satting 96%
--- NOTE | 2024-03-20 19:10 | PC.NURSE ---
this rn received report from Kate pritchett
--- NOTE | 2024-03-20 19:42 | PC.NURSE ---
pt states he doesnt have a cpap at home. lungs diminished on right side, pt has oxi mask on talking in full sentences, family at bedside. needs met at bedside.
[2024-03-20] MEDS: Albuterol/Iprat 2.5/0.5MG 3 ML AMPUL.NEB INHALE (20:22)
[2024-03-20 21:26] LABS: Glucose, Whole Blood 318 mg/dL (60-115)
--- NOTE | 2024-03-20 22:21 | PC.NURSE ---
waiting for meds to cross over.
[2024-03-20] MEDS: carvediloL 25 MG TABLET PO (22:34)
[2024-03-20] MEDS: clonazePAM 0.5 MG TABLET PO (22:35)
[2024-03-20] MEDS: cefTRIAXone sodium 1 GM VIAL IVPUSH (22:36)
[2024-03-20] MEDS: Insulin Glargine,Hum.rec.anlog 100 UNIT/ML 10 ML VIAL 25 UNIT SUBCUT (22:36)
[2024-03-20] MEDS: DULoxetine HCl 30 MG CAPSULE.DR PO (22:46)
--- NOTE | 2024-03-20 22:49 | PC.NURSE ---
waiting for ziprasidone 80mg po to be brought to the ed. not in our pyxis
[2024-03-20] MEDS: Ziprasidone 80 MG CAPSULE PO (23:09)
--- NOTE | 2024-03-20 23:13 | PC.NURSE ---
interpretor called pt has a family member on the phone and states there is a issue about his medications. waiting go give kirby till clear up the issue.
--- NOTE | 2024-03-20 23:38 | PC.NURSE ---
unable to waste medication in [facility] pharmacy called and will handle with leather products supervisor to address.
[2024-03-21] VITALS (15 sets, daily range): BP systolic 108–168; BP diastolic 59–93; PULSE 64–92; RESP 16–20; TEMP 36.1–36.8; O2SAT 85–95
--- NOTE | 2024-03-21 00:08 | MHC.EDTECH ---
This pct assumed care of Patient ,Patient asleep ,vitals taken ,Patient at bedside ,no apparent distress noted ,Plan of care continue .
--- NOTE | 2024-03-21 01:02 | PC.NURSE ---
pt has been sleeping family member at bedside. pt iv wnl. no s/s of distress.
[2024-03-21] MEDS: Doxycycline Hyclate 100 MG in 0.9 % Sodium Chloride 250 ML 166.67 MG IV ×2 (02:07→14:41)
[2024-03-21] MEDS: guaiFENesin DM 200/20/10 ML 10 ML SYRUP PO (05:22)
[2024-03-21 07:01] LABS: Hematocrit 38.9 % (42.0-52.0); Hemoglobin 12.3 g/dl (14.0-18.0); Mean Corpuscular HGB Conc 31.6 g/dl (31.0-36.0); Mean Corpuscular Hemoglobin 28.5 pg (27.0-33.0); Mean Platelet Volume 12.7 fL (9.4-12.4); Platelet Count 288 X10*3/uL (160-400); Red Blood Count 4.32 X10*6/uL (4.60-5.80); Red Cell Distribution Width 14.6 % (11.0-16.0); White Blood Count 21.2 X10*3/uL (4.8-10.8)
[2024-03-21 07:19] LABS: Anion Gap 12 (12-20); Blood Urea Nitrogen 43 mg/dL (9-16); Calcium 8.7 mg/dL (8.4-10.2); Carbon Dioxide 24 mmol/L (22-29); Chloride 106 mmol/L (96-108); Estimated Glomerular Filt Rate 19; Potassium 4.7 mmol/L (3.3-5.1); Sodium 137 mmol/L (135-145)
[2024-03-21 07:26] LABS: Glucose, Whole Blood 339 mg/dL (60-115)
[2024-03-21 07:37] LABS: Glucose Random 358 mg/dL (60-115)
[2024-03-21] MEDS: Albuterol/Iprat 2.5/0.5MG 3 ML AMPUL.NEB INHALE ×4 (08:12→19:56)
[2024-03-21] MEDS: Insulin Glargine,Hum.rec.anlog 100 UNIT/ML 10 ML VIAL 25 UNIT SUBCUT (08:46)
--- NOTE | 2024-03-21 08:47 | MHC.CM.PN ---
EMR REVIEWED, PT W/MULTIFOCAL PNA/NICOLAS, CM ATTEMPTED TO MEET W/PT VIA VEHICLE OPERATOR TECHNICIAN HOWEVER PT SOUNDLY SLEEPING AND DIFFICULT TO AROUSE, PT'S MARILU AT BEDSIDE AND ABLE TO ANSWER ALL QUESTIONS, PT LIVES W/MARILU AND 2 CHILDREN, PT USES A ROLLATOR WALKER , HOME O2 W/LINCARE, NO CPAP AND PT HAS DIABETIC SUPPLIES AND HAS DAILY NURSING FOR TESTING AND INSULIN ADMINISTRATION W/Animated Speech, RETURN REFERRAL PLACED. MARILU REPORTS PT'S GOAL WOULD BE HOME W/RESUMP OF SERVICES. PCP ON FILE VERIFIED, MARILU REPORTS PT DOES NOT HAVE A HCP, CM WILL REVISIT ONCE HE IS AWAKE AND ALERT.
[2024-03-21] MEDS: Cholecalciferol (Vitamin D3) 25 MCG TABLET 50 MCG PO (10:33)
[2024-03-21] MEDS: Omeprazole 20 MG CAPSULE.DR PO (10:34)
[2024-03-21] MEDS: Empagliflozin 10 MG TABLET PO (10:34)
[2024-03-21] MEDS: Gabapentin 400 MG CAPSULE 800 MG PO (10:34)
[2024-03-21] MEDS: FLUoxetine HCl 20 MG CAPSULE 40 MG PO (10:34)
[2024-03-21] MEDS: clonazePAM 0.5 MG TABLET PO (10:34)
[2024-03-21] MEDS: allopurinoL 100 MG TABLET 50 MG PO (10:35)
[2024-03-21] MEDS: Losartan Potassium 50 MG TABLET 100 MG PO (10:35)
[2024-03-21] MEDS: Atorvastatin Calcium 80 MG TABLET PO (10:35)
[2024-03-21] MEDS: Ezetimibe 10 MG TABLET PO (10:35)
[2024-03-21] MEDS: carvediloL 25 MG TABLET PO ×2 (10:35→21:33)
[2024-03-21] MEDS: Aspirin 81 MG TAB.CHEW PO (10:35)
[2024-03-21] MEDS: amLODIPine Besylate 2.5 MG TABLET PO (10:36)
[2024-03-21] MEDS: DULoxetine HCl 60 MG CAPSULE.DR PO (10:36)
[2024-03-21 11:55] LABS: Glucose, Whole Blood 322 mg/dL (60-115)
[2024-03-21] MEDS: Insulin Lispro 100 UNIT/ML 3 ML VIAL SUBCUT ×3 (12:04→21:33)
[2024-03-21 12:31] LABS: Glucose, Whole Blood 275 mg/dL (60-115)
[2024-03-21 12:43] LABS: ABG Base Excess 0.7 mmol/L; ABG HCO3 28 mmol/L (22-26); ABG pCO2 63 mmHg (32-45); ABG pH 7.26 (7.35-7.45); ABG pO2 64 mmHg (83-108)
--- NOTE | 2024-03-21 14:31 | HO.WOUND ---
Wound Consult: Initial 53yr old?male admitted to [facility] on 03/20/24 - See progress notes and H&P for detailed history.? Wound consult placed for darkened skin on Abd.? Patient agreeable to assessment and photo documentation.? Patient and his report it is due to his insulin injections. The abdomen is assessed - no injury noted. The skin is thickened and hyperpigmented but remains intact. No skin injury at this time no topical recommendations needed at this time.
[2024-03-21 16:16] LABS: Glucose, Whole Blood 235 mg/dL (60-115)
--- NOTE | 2024-03-21 16:26 | P.PNIM_ITS ---
Subjective Subjective Date of Service: 03/21/24 Interval History: Episode of unresponsiveness earlier today. Gases reviewed. Placed on BiPAP with good results. More awake this afternoon Physical Exam 2 Vital Signs: Vital Signs: Last Vital Signs Temp 97 F 03/21/24 15:38 Pulse 64 03/21/24 15:38 Resp 18 03/21/24 15:38 BP 108/60 03/21/24 15:38 Pulse Ox 95 03/21/24 15:38 O2 Del Method Room Air 03/21/24 15:38 O2 Flow Rate 2 03/21/24 07:39 BMI result Body Mass Index 37.9 Objective Data Active Medications Acetaminophen (Acetaminophen 325 Mg Tablet) 650 mg PO Q6H PRN PRN Reason: Pain, Mild (Pain Scale 1-3), fever or headache Albuterol/Ipratropium (Albuterol/Iprat 2.5/0.5mg 3 Ml Ampul.Neb) 3 ml INHALE RQ4H WHILE AWAKE [facility] TO [facility] Last Admin: 03/21/24 15:25 Dose: 3 ml Documented By: ETTA Albuterol/Ipratropium (Albuterol/Iprat 2.5/0.5mg 3 Ml Ampul.Neb) 3 ml INHALE RQ4H WHILE AWAKE PRN PRN Reason: Shortness of Breath/Wheezing Allopurinol (Allopurinol 100 Mg Tablet) 50 mg PO DAILY [facility] Last Admin: 03/21/24 10:35 Dose: 50 mg Documented By: VLADISLAV Amlodipine Besylate (Amlodipine Besylate 2.5 Mg Tablet) 2.5 mg PO DAILY [facility]; Protocol Last Admin: 03/21/24 10:36 Dose: 2.5 mg Documented By: VLADISLAV Aspirin (Aspirin 81 Mg Tab.Chew) 81 mg PO DAILY [facility] Last Admin: 03/21/24 10:35 Dose: 81 mg Documented By: VLADISLAV Atorvastatin Calcium (Atorvastatin Calcium 80 Mg Tablet) 80 mg PO DAILY [facility] Last Admin: 03/21/24 10:35 Dose: 80 mg Documented By: VLADISLAV Calcium Carbonate (Calcium Carbonate 750 Mg Tab.Chew) 750 mg PO Q4H PRN PRN Reason: Heartburn Carvedilol (Carvedilol 25 Mg Tablet) 25 mg PO BID [facility]; Protocol Last Admin: 03/21/24 10:35 Dose: 25 mg Documented By: VLADISLAV Ceftriaxone Sodium (Ceftriaxone Sodium 1 Gm Vial) 1 gm IVPUSH Q24H [facility] Last Admin: 03/20/24 22:36 Dose: 1 gm Documented By: GEMINI Clonazepam (Clonazepam 0.5 Mg Tablet) 0.5 mg PO TID [facility] Last Admin: 03/21/24 15:08 Dose: Not Given Documented By: VLADISLAV Non-Admin Reason: Patient Refused Divalproex Sodium (Divalproex Sodium Er 500 Mg Tab.Er.24h) 1,000 mg PO BEDTIME [facility] Last Admin: 03/20/24 22:43 Dose: Not Given Documented By: GEMINI Non-Admin Reason: Taken at Home Duloxetine HCl (Duloxetine Hcl 30 Mg Capsule.) 30 mg PO BEDTIME [facility] Last Admin: 03/20/24 22:46 Dose: 30 mg Documented By: GEMINI Duloxetine HCl (Duloxetine Hcl 60 Mg Capsule.) 60 mg PO DAILY [facility] Last Admin: 03/21/24 10:36 Dose: 60 mg Documented By: VLADISLAV Ezetimibe (Ezetimibe 10 Mg Tablet) 10 mg PO DAILY [facility] Last Admin: 03/21/24 10:35 Dose: 10 mg Documented By: VLADISLAV Empagliflozin (Empagliflozin 10 Mg Tablet) 10 mg PO DAILY [facility] Last Admin: 03/21/24 10:34 Dose: 10 mg Documented By: VLADISLAV Enoxaparin Sodium (Enoxaparin Sodium 40 Mg/0.4 Ml Syringe) 40 mg SUBCUT Q24H [facility] Last Admin: 03/20/24 18:06 Dose: 40 mg Documented By: PAUL Fluoxetine HCl (Fluoxetine Hcl 20 Mg Capsule) 40 mg PO DAILY [facility] Last Admin: 03/21/24 10:34 Dose: 40 mg Documented By: VLADISLAV Fluticasone/Vilanterol (Fluticasone/Vilanterol 200/25 Blst.W.Dev) 1 puff INHALE DAILY [facility] Last Admin: 03/21/24 08:38 Dose: Not Given Documented By: ETTA Non-Admin Reason: Med Not Available Gabapentin (Gabapentin 400 Mg Capsule) 800 mg PO DAILY [facility] Last Admin: 03/21/24 10:34 Dose: 800 mg Documented By: VLADISLAV Glucose (Glucose Gel 15 Gm Gel..Gram.) 15 gm PO Q15M PRN; Protocol PRN Reason: per Hypoglycemia Standing Ord. Guaifenesin/Dextromethorphan (Guaifenesin Dm 200/20/10 Ml 10 Ml Syrup) 10 ml PO Q6H PRN PRN Reason: Cough Last Admin: 03/21/24 05:22 Dose: 10 ml Documented By: SHANEKA Doxycycline Hyclate 100 mg/ (Sodium Chloride) 250 mls @ 166.67 mls/hr IV Q12H [facility] Last Admin: 03/21/24 14:41 Dose: 166.67 mls/hr Documented By: VLADISLAV Dextrose (D10) 250 mls @ 750 mls/hr IV Q15M PRN; Protocol PRN Reason: per Hypoglycemia Standing Ord. Insulin Glargine (Insulin Glargine,Hum.Rec.Anlog 100 Unit/Ml 10 Ml Vial) 25 unit SUBCUT BEDTIME [facility] Last Admin: 03/20/24 22:36 Dose: 25 unit Documented By: GEMINI Insulin Glargine (Insulin Glargine,Hum.Rec.Anlog 100 Unit/Ml 10 Ml Vial) 25 unit SUBCUT DAILY [facility] Last Admin: 03/21/24 08:46 Dose: 25 unit Documented By: VLADISLAV Insulin Human Lispro (Insulin Lispro 100 Unit/Ml 3 Ml Vial) 0 unit SUBCUT QIDACHS [facility]; Protocol Last Admin: 03/21/24 12:04 Dose: 8 unit Documented By: VLADISLAV Ketotifen Fumarate (Ketotifen Fumarate 0.025% Oph 5 Ml Drpbtl) 1 drop EYE-BOTH BID PRN PRN Reason: allergies Losartan Potassium (Losartan Potassium 50 Mg Tablet) 100 mg PO DAILY [facility]; Protocol Last Admin: 03/21/24 10:35 Dose: 100 mg Documented By: VLADISLAV Magnesium Hydroxide (Milk Of Magnesia 30 Ml Oral.Susp) 30 ml PO DAILY PRN PRN Reason: Constipation Meclizine HCl (Meclizine Hcl 25 Mg Tablet) 25 mg PO TID PRN PRN Reason: dizziness Melatonin (Melatonin 3 Mg Tablet) 6 mg PO BEDTIME PRN PRN Reason: Insomnia Omeprazole (Omeprazole 20 Mg Capsule.Dr) 20 mg PO DAILY [facility] Last Admin: 03/21/24 10:34 Dose: 20 mg Documented By: VLADISLAV Ondansetron HCl (Ondansetron Hcl 4 Mg/2 Ml Vial) 4 mg IVPUSH Q8H PRN PRN Reason: Nausea and Vomiting Sodium Chloride (0.9 % Sodium Chloride Flush 3 Ml Syringe) 3 ml IVFLUSH QSHIFT [facility] Last Admin: 03/21/24 09:47 Dose: Not Given Documented By: VLADISLAV Non-Admin Reason: Patient Asleep Tramadol HCl (Tramadol Hcl 50 Mg Tablet) 50 mg PO Q8H PRN PRN Reason: Pain, Severe (Pain Scale 7-10) Trazodone HCl (Trazodone Hcl 50 Mg Tablet) 150 mg PO BEDTIME PRN PRN Reason: Sleep Vitamin D (Cholecalciferol (Vitamin D3) 25 Mcg Tablet) 50 mcg PO DAILY [facility] Last Admin: 03/21/24 10:33 Dose: 50 mcg Documented By: VLADISLAV Ziprasidone (Ziprasidone 80 Mg Capsule) 80 mg PO BEDTIME [facility] Last Admin: 03/20/24 23:09 Dose: 80 mg Documented By: MCTA Labs 03/21/24 06:32 03/21/24 06:32 Labs: Laboratory Results - last 24 hr 03/20/24 03/20/24 03/20/24 11:36 18:20 21:22 MCV MCH MCHC RDW Plt Count MPV Absolute Nucleated RBC Nucleated RBC % (auto) O2 Saturation ABG pH at Pt Temp ABG pCO2 at Pt Temp ABG pO2 at Pt Temp ABG HCO3 ABG Base Excess (Actual) Anion Gap Estim Creat Clear Calc Estimated GFR POC Glucose 331 H 318 H Random Glucose Estimat Average Glucose 329 Hemoglobin A1c % 13.1 H Calcium 03/21/24 03/21/24 03/21/24 06:32 07:13 11:46 MCV 90.0 MCH 28.5 MCHC 31.6 RDW 14.6 Plt Count 288 MPV 12.7 H Absolute Nucleated RBC 0.000 Nucleated RBC % (auto) 0.0 O2 Saturation ABG pH at Pt Temp ABG pCO2 at Pt Temp ABG pO2 at Pt Temp ABG HCO3 ABG Base Excess (Actual) Anion Gap 12 Estim Creat Clear Calc 32.0 Estimated GFR 19 POC Glucose 339 H 322 H Random Glucose 358 H* Estimat Average Glucose Hemoglobin A1c % Calcium 8.7 03/21/24 03/21/24 03/21/24 12:27 12:32 16:13 MCV MCH MCHC RDW Plt Count MPV Absolute Nucleated RBC Nucleated RBC % (auto) O2 Saturation 87.0 ABG pH at Pt Temp 7.26 L ABG pCO2 at Pt Temp 63 H* ABG pO2 at Pt Temp 64 L ABG HCO3 28 H ABG Base Excess (Actual) 0.7 Anion Gap Estim Creat Clear Calc Estimated GFR POC Glucose 275 H 235 H Random Glucose Estimat Average Glucose Hemoglobin A1c % Calcium Microbiology Microbiology Results: Microbiology 03/20/24 13:00 Blood Culture - Preliminary Blood - Venous No growth after 24 hours. 03/20/24 12:58 Blood Culture - Preliminary Blood - Venous No growth after 24 hours. Assessment and Plan (1) Respiratory failure with hypoxia and hypercapnia: Status: Acute (2) Multifocal pneumonia: Status: Acute Plan Pt is a 53-year-old [place]ish-speaking male with a PMH significant for?COPD on home 2L O2 prn, HTN, HLD, CVA w/ right-sided hemiparesis, insulin-dependent type 2 diabetes, CKD 3, GERD, REGI not yet approved fro CPAP, and gout who presents to the ED with?SOB, hemoptysis, and fatigue x2-3 days. Reports phlegm has been yellow-colored and flecked with blood. Pt will be admitted to the hospital for treatment and further evaluation of NICOLAS, hyperglycemia, and acute on chronic hypoxic respiratory failure in the setting of multifocal pneumonia with sepsis. 1.Acute on chronic hypoxic respiratory failure in the setting of multifocal pneumonia with sepsis -brief episode of unresponsiveness; gases drawn and noted. BiPAP x1 hour with improvement in symptoms. Sleep study tonight -ceftriaxone/doxycycline to -adjust pending cultures -duoNebs guaifenesin -titrate supplemental O2 to 2L >90-92, wean as tolerated 2.NIOCLAS -creatinine remains elevated; gentle volume repletion overnight -follow renals/divalents 3.Insulin-dependent type 2 diabetes -increased Lantus, 30 units BID -lispro correctional scale -Diabetic diet -adjust as indicated 4.HTN -acceptable control on current therapies -adjust as indicated Full Code Lovenox Requires ongoing hospitalization for IV antibiotics to treat multifocal pneumonia Quality Stroke Does the patient have a stroke diagnosis?: No VTE Prior VTE?: No VTE Risk Level:: Medical - moderate - high VTE Device Contraindication: Treatment Not Indicated VTE Drug Contraindication: N/A - Med Ordered
[2024-03-21] MEDS: Enoxaparin Sodium 40 MG/0.4 ML SYRINGE SUBCUT (17:07)
[2024-03-21 17:12] LABS: Lactic Acid 0.7 mmol/L (0.5-2.0)
[2024-03-21] MEDS: 0.9 % Sodium Chloride 1,000 ML 125 ML IVCONT (18:11)
[2024-03-21 20:33] LABS: Glucose, Whole Blood 179 mg/dL (60-115)
[2024-03-21] MEDS: cefTRIAXone sodium 1 GM VIAL IVPUSH ×2 (21:10→21:33)
[2024-03-21] MEDS: Insulin Glargine,Hum.rec.anlog 100 UNIT/ML 10 ML VIAL 30 UNIT SUBCUT (21:31)
[2024-03-21] MEDS: 0.9 % Sodium Chloride Flush 3 ML SYRINGE IVFLUSH (21:36)
[2024-03-22] VITALS (7 sets, daily range): BP systolic 108–159; BP diastolic 61–85; PULSE 74–80; RESP 18–20; TEMP 36–36.6; O2SAT 93–97
[2024-03-22] MEDS: Doxycycline Hyclate 100 MG in 0.9 % Sodium Chloride 250 ML 166.67 MG IV ×2 (01:05→13:37)
[2024-03-22] MEDS: 0.9 % Sodium Chloride 1,000 ML 125 ML IVCONT (01:06)
--- NOTE | 2024-03-22 04:08 | PC.NURSE ---
Patient refused Mildred Santizo,Dragan,Jl white because he is afraid he will have another episode of somnolence. RN encouraged patient through use of research geneticist to speak to his doctor in the morning about what he thinks might have caused his unresponsiveness because it is important that he keep on taking his medications that he was prescribed. Patient agreed.
[2024-03-22 06:35] LABS: Basophils Absolute Auto 0.1 X10*3/uL (0.0-0.2); Basophils Percent Auto 0.3 % (0-2); Eosinophils Absolute Auto 0.3 X10*3/uL (0.0-0.4); Eosinophils Percent Auto 1.7 % (0-4); Hematocrit 38.8 % (42.0-52.0); Hemoglobin 11.9 g/dl (14.0-18.0); Imm Gran Abs Auto 0.29 X10*3/uL (0.00-0.03); Imm Gran Pct Auto 1.5 % (0.0-0.4); Lymphocytes Absolute Auto 2.7 X10*3/uL (1.2-4.9); Lymphocytes Percent Auto 14.2 % (20-40); MANUAL DIFF FLAG SCAN; Mean Corpuscular HGB Conc 30.7 g/dl (31.0-36.0); Mean Corpuscular Hemoglobin 28.3 pg (27.0-33.0); Mean Corpuscular Volume 92.4 fL (80.0-98.0); Mean Platelet Volume 12.4 fL (9.4-12.4); Monocytes Absolute Auto 1.6 X10*3/uL (0.1-1.2); Monocytes Percent Auto 8.5 % (2-11); Neutrophils Absolute Auto 14.1 x10*3/uL (2.0-8.3); Neutrophils Percent Auto 73.8 % (45-73); Platelet Count 337 X10*3/uL (160-400); Red Cell Distribution Width 14.6 % (11.0-16.0); SCAN SMEAR FLAG 1; White Blood Count 19.2 X10*3/uL (4.8-10.8)
--- NOTE | 2024-03-22 06:40 | PC.NURSE ---
03/21/2024 MD called to bedside at 12:25. Patient difficult to arouse. will move extremities in response to pain but will not open eyes, all vital signs stable. RT at bedside obtained ABGs per doctor order. Patient placed on BIPAP per Dr. oT's order at 12:45. Per patient's family, the patient has REGI but does not use CPAP at home and the patient is often very difficult to wake up at home. patient woke at 14:09 and RT was called to remove BIPAP and place patient back on nasal cannula. Vital signs remain stable and patient denies any pain/ discomfort. no further orders at this time
[2024-03-22 06:57] LABS: Anion Gap 12 (12-20); Blood Urea Nitrogen 42 mg/dL (9-16); Calcium 9.2 mg/dL (8.4-10.2); Carbon Dioxide 23 mmol/L (22-29); Chloride 110 mmol/L (96-108); Creatinine Clr Calc Pharmacy 34.7; Estimated Glomerular Filt Rate 21; Glucose Random 101 mg/dL (60-115); Potassium 4.5 mmol/L (3.3-5.1); Sodium 140 mmol/L (135-145)
[2024-03-22 07:19] LABS: SLIDE REVIEW VERIFIED
[2024-03-22 08:34] LABS: Glucose, Whole Blood 82 mg/dL (60-115)
[2024-03-22] MEDS: traMADoL HCL 50 MG TABLET PO (09:17)
[2024-03-22] MEDS: allopurinoL 100 MG TABLET 50 MG PO (09:19)
[2024-03-22] MEDS: Omeprazole 20 MG CAPSULE.DR PO (09:19)
[2024-03-22] MEDS: Aspirin 81 MG TAB.CHEW PO (09:19)
[2024-03-22] MEDS: Gabapentin 400 MG CAPSULE 800 MG PO (09:20)
[2024-03-22] MEDS: amLODIPine Besylate 2.5 MG TABLET PO (09:20)
[2024-03-22] MEDS: Ezetimibe 10 MG TABLET PO (09:21)
[2024-03-22] MEDS: Losartan Potassium 50 MG TABLET 100 MG PO (09:21)
[2024-03-22] MEDS: Atorvastatin Calcium 80 MG TABLET PO (09:21)
[2024-03-22] MEDS: Empagliflozin 10 MG TABLET PO (09:22)
[2024-03-22] MEDS: Cholecalciferol (Vitamin D3) 25 MCG TABLET 50 MCG PO (09:22)
[2024-03-22] MEDS: carvediloL 25 MG TABLET PO ×2 (09:22→20:57)
[2024-03-22] MEDS: 0.9 % Sodium Chloride Flush 3 ML SYRINGE IVFLUSH ×3 (09:23→20:58)
[2024-03-22] MEDS: Albuterol/Iprat 2.5/0.5MG 3 ML AMPUL.NEB INHALE ×3 (11:20→21:26)
[2024-03-22 11:36] LABS: Glucose, Whole Blood 113 mg/dL (60-115)
--- NOTE | 2024-03-22 15:25 | HO.PM.IMPN ---
Subjective Subjective Date of Service: 03/22/24 Interval History: No further episodes requiring BiPAP. Qualifying sleep study done overnight Review of Systems Denies chest pain Denies shortness of breath Denies nausea vomiting diarrhea Denies fever chills Physical Exam Vital Signs: Vital Signs: Last Vital Signs Temp 97.6 F 03/22/24 08:00 Pulse 80 03/22/24 15:18 Resp 20 03/22/24 15:18 BP 159/85 H 03/22/24 08:00 Pulse Ox 94 03/22/24 08:00 O2 Del Method Nasal Cannula 03/22/24 08:00 O2 Flow Rate 2 03/22/24 08:00 BMI result Body Mass Index 37.9 Const: Other: No acute issues resting quietly Resp: Other: Diminished but clear throughout Cardio: Other: No S4; positive S1-S2; no S3 murmurs rubs or gallops GI: Other: Obese nontender positive bowel sounds Extrem: Other: Positive edema bilateral Objective Data Active Medications Acetaminophen (Acetaminophen 325 Mg Tablet) 650 mg PO Q6H PRN PRN Reason: Pain, Mild (Pain Scale 1-3), fever or headache Albuterol/Ipratropium (Albuterol/Iprat 2.5/0.5mg 3 Ml Ampul.Neb) 3 ml INHALE RQ4H WHILE AWAKE [facility] Last Admin: 03/22/24 15:18 Dose: 3 ml Documented By: KENY Albuterol/Ipratropium (Albuterol/Iprat 2.5/0.5mg 3 Ml Ampul.Neb) 3 ml INHALE RQ4H WHILE AWAKE PRN PRN Reason: Shortness of Breath/Wheezing Allopurinol (Allopurinol 100 Mg Tablet) 50 mg PO DAILY [facility] Last Admin: 03/22/24 09:19 Dose: 50 mg Documented By: JEFE Amlodipine Besylate (Amlodipine Besylate 2.5 Mg Tablet) 2.5 mg PO DAILY [facility]; Protocol Last Admin: 03/22/24 09:20 Dose: 2.5 mg Documented By: JEFE Aspirin (Aspirin 81 Mg Tab.Chew) 81 mg PO DAILY [facility] Last Admin: 03/22/24 09:19 Dose: 81 mg Documented By: JEFE Atorvastatin Calcium (Atorvastatin Calcium 80 Mg Tablet) 80 mg PO DAILY [facility] Last Admin: 03/22/24 09:21 Dose: 80 mg Documented By: JEFE Calcium Carbonate (Calcium Carbonate 750 Mg Tab.Chew) 750 mg PO Q4H PRN PRN Reason: Heartburn Carvedilol (Carvedilol 25 Mg Tablet) 25 mg PO BID [facility]; Protocol Last Admin: 03/22/24 09:22 Dose: 25 mg Documented By: JEFE Ceftriaxone Sodium (Ceftriaxone Sodium 1 Gm Vial) 1 gm IVPUSH Q24H [facility] Last Admin: 03/21/24 21:33 Dose: 1 gm Documented By: HENNY Clonazepam (Clonazepam 0.5 Mg Tablet) 0.5 mg PO TID [facility] Last Admin: 03/21/24 21:51 Dose: Not Given Documented By: HENNY Non-Admin Reason: Patient Refused Divalproex Sodium (Divalproex Sodium Er 500 Mg Tab.Er.24h) 1,000 mg PO BEDTIME [facility] Last Admin: 03/21/24 22:56 Dose: Not Given Documented By: HENNY Non-Admin Reason: Patient Refused Duloxetine HCl (Duloxetine Hcl 30 Mg Capsule.) 30 mg PO BEDTIME [facility] Last Admin: 03/21/24 22:56 Dose: Not Given Documented By: HENNY Non-Admin Reason: Patient Refused Duloxetine HCl (Duloxetine Hcl 60 Mg Capsule.) 60 mg PO DAILY [facility] Last Admin: 03/22/24 10:09 Dose: Not Given Documented By: JEFE Non-Admin Reason: Patient Refused Ezetimibe (Ezetimibe 10 Mg Tablet) 10 mg PO DAILY [facility] Last Admin: 03/22/24 09:21 Dose: 10 mg Documented By: JEFE Empagliflozin (Empagliflozin 10 Mg Tablet) 10 mg PO DAILY [facility] Last Admin: 03/22/24 09:22 Dose: 10 mg Documented By: JEFE Enoxaparin Sodium (Enoxaparin Sodium 40 Mg/0.4 Ml Syringe) 40 mg SUBCUT Q24H [facility] Last Admin: 03/21/24 17:07 Dose: 40 mg Documented By: VLADISLAV Fluoxetine HCl (Fluoxetine Hcl 20 Mg Capsule) 40 mg PO DAILY [facility] Last Admin: 03/22/24 10:09 Dose: Not Given Documented By: JEFE Non-Admin Reason: Patient Refused Fluticasone/Vilanterol (Fluticasone/Vilanterol 200/25 Blst.W.Dev) 1 puff INHALE DAILY [facility] Last Admin: 03/22/24 07:10 Dose: Not Given Documented By: KENY Non-Admin Reason: pharmacy called for med Gabapentin (Gabapentin 400 Mg Capsule) 800 mg PO DAILY [facility] Last Admin: 03/22/24 09:20 Dose: 800 mg Documented By: JEFE Glucose (Glucose Gel 15 Gm Gel..Gram.) 15 gm PO Q15M PRN; Protocol PRN Reason: per Hypoglycemia Standing Ord. Guaifenesin/Dextromethorphan (Guaifenesin Dm 200/20/10 Ml 10 Ml Syrup) 10 ml PO Q6H PRN PRN Reason: Cough Last Admin: 03/21/24 05:22 Dose: 10 ml Documented By: SHANEKA Doxycycline Hyclate 100 mg/ (Sodium Chloride) 250 mls @ 166.67 mls/hr IV Q12H [facility] Last Admin: 03/22/24 13:37 Dose: 166.67 mls/hr Documented By: JEFE Dextrose (D10) 250 mls @ 750 mls/hr IV Q15M PRN; Protocol PRN Reason: per Hypoglycemia Standing Ord. Insulin Glargine (Insulin Glargine,Hum.Rec.Anlog 100 Unit/Ml 10 Ml Vial) 30 unit SUBCUT BEDTIME [facility] Last Admin: 03/21/24 21:31 Dose: 30 unit Documented By: HENNY Insulin Glargine (Insulin Glargine,Hum.Rec.Anlog 100 Unit/Ml 10 Ml Vial) 30 unit SUBCUT DAILY [facility] Last Admin: 03/22/24 11:12 Dose: Not Given Documented By: JEFE Non-Admin Reason: Physician Held Med Insulin Human Lispro (Insulin Lispro 100 Unit/Ml 3 Ml Vial) 0 unit SUBCUT QIDACHS [facility]; Protocol Last Admin: 03/22/24 11:49 Dose: Not Given Documented By: JEFE Non-Admin Reason: No Insulin Coverage Ketotifen Fumarate (Ketotifen Fumarate 0.025% Oph 5 Ml Drpbtl) 1 drop EYE-BOTH BID PRN PRN Reason: allergies Losartan Potassium (Losartan Potassium 50 Mg Tablet) 100 mg PO DAILY [facility]; Protocol Last Admin: 03/22/24 09:21 Dose: 100 mg Documented By: JEFE Magnesium Hydroxide (Milk Of Magnesia 30 Ml Oral.Susp) 30 ml PO DAILY PRN PRN Reason: Constipation Meclizine HCl (Meclizine Hcl 25 Mg Tablet) 25 mg PO TID PRN PRN Reason: dizziness Melatonin (Melatonin 3 Mg Tablet) 6 mg PO BEDTIME PRN PRN Reason: Insomnia Omeprazole (Omeprazole 20 Mg Capsule.Dr) 20 mg PO DAILY@0630 [facility] Ondansetron HCl (Ondansetron Hcl 4 Mg/2 Ml Vial) 4 mg IVPUSH Q8H PRN PRN Reason: Nausea and Vomiting Sodium Chloride (0.9 % Sodium Chloride Flush 3 Ml Syringe) 3 ml IVFLUSH QSHIFT [facility] Last Admin: 03/22/24 09:23 Dose: 3 ml Documented By: JEFE Tramadol HCl (Tramadol Hcl 50 Mg Tablet) 50 mg PO Q8H PRN PRN Reason: Pain, Severe (Pain Scale 7-10) Last Admin: 03/22/24 09:17 Dose: 50 mg Documented By: JEFE Trazodone HCl (Trazodone Hcl 50 Mg Tablet) 150 mg PO BEDTIME PRN PRN Reason: Sleep Vitamin D (Cholecalciferol (Vitamin D3) 25 Mcg Tablet) 50 mcg PO DAILY [facility] Last Admin: 03/22/24 09:22 Dose: 50 mcg Documented By: JEFE Ziprasidone (Ziprasidone 80 Mg Capsule) 80 mg PO BEDTIME [facility] Last Admin: 03/21/24 21:55 Dose: Not Given Documented By: HENNY Non-Admin Reason: Patient Refused Labs 03/22/24 06:08 03/22/24 06:08 Labs: Laboratory Results - last 24 hr 03/21/24 03/21/24 03/21/24 16:13 16:48 20:30 MCV MCH MCHC RDW Plt Count MPV Immature Gran % (Auto) Neut % (Auto) Lymph % (Auto) Lake % (Auto) Eos % (Auto) Baso % (Auto) Lymph # (Auto) Lake # (Auto) Eos # (Auto) Baso # (Auto) Abs Immat Gran (auto) Absolute Neuts (auto) Absolute Nucleated RBC Nucleated RBC % (auto) Smear Tech's Comments Anion Gap Estim Creat Clear Calc Estimated GFR POC Glucose 235 H 179 H Random Glucose Lactic Acid 0.7 Calcium 03/22/24 03/22/24 03/22/24 06:08 07:49 11:24 MCV 92.4 MCH 28.3 MCHC 30.7 L RDW 14.6 Plt Count 337 MPV 12.4 Immature Gran % (Auto) 1.5 H Neut % (Auto) 73.8 H Lymph % (Auto) 14.2 L Lake % (Auto) 8.5 Eos % (Auto) 1.7 Baso % (Auto) 0.3 Lymph # (Auto) 2.7 Lake # (Auto) 1.6 H Eos # (Auto) 0.3 Baso # (Auto) 0.1 Abs Immat Gran (auto) 0.29 H Absolute Neuts (auto) 14.1 H Absolute Nucleated RBC 0.000 Nucleated RBC % (auto) 0.0 Smear Tech's Comments VERIFIED Anion Gap 12 Estim Creat Clear Calc 34.7 Estimated GFR 21 POC Glucose 82 113 Random Glucose 101 Lactic Acid Calcium 9.2 Microbiology Microbiology Results: Microbiology 03/20/24 13:00 Blood Culture - Preliminary Blood - Venous No growth after 48 hours. 03/20/24 12:58 Blood Culture - Preliminary Blood - Venous No growth after 48 hours. Assessment and Plan (1) Multifocal pneumonia: Status: Acute (2) Respiratory failure with hypoxia and hypercapnia: Status: Acute Plan Pt is a 53-year-old Arabic-speaking male with a PMH significant for?COPD on home 2L O2 prn, HTN, HLD, CVA w/ right-sided hemiparesis, insulin-dependent type 2 diabetes, CKD 3, GERD, REGI not yet approved fro CPAP, and gout who presents to the ED with?SOB, hemoptysis, and fatigue x2-3 days. Reports phlegm has been yellow-colored and flecked with blood. Pt will be admitted to the hospital for treatment and further evaluation of NICOLAS, hyperglycemia, and acute on chronic hypoxic respiratory failure in the setting of multifocal pneumonia with sepsis. 1.Acute on chronic hypoxic respiratory failure in the setting of multifocal pneumonia with sepsis -qualifying sleep study overnight; respiratory to arrange for machine at home -ceftriaxone/doxycycline(3) -adjust pending cultures -duoNebs, guaifenesin -titrate supplemental O2 to 2L >90-92, wean as tolerated 2.NICOLAS -creatinine remains elevated; gentle volume repletion overnight -follow renals/divalents 3.Insulin-dependent type 2 diabetes -increased Lantus, 30 units BID...good response -lispro correctional scale -Diabetic diet -adjust as indicated 4.HTN -acceptable control on current therapies -adjust as indicated Full Code Lovenox Requires ongoing hospitalization for IV antibiotics to treat multifocal pneumonia Quality Stroke Does the patient have a stroke diagnosis?: No VTE Prior VTE?: No VTE Risk Level:: Medical - moderate - high VTE Device Contraindication: Treatment Not Indicated VTE Drug Contraindication: N/A - Med Ordered
[2024-03-22 16:20] LABS: Glucose, Whole Blood 155 mg/dL (60-115)
[2024-03-22] MEDS: Enoxaparin Sodium 40 MG/0.4 ML SYRINGE SUBCUT (17:31)
[2024-03-22] MEDS: Insulin Lispro 100 UNIT/ML 3 ML VIAL SUBCUT ×2 (17:32→20:59)
[2024-03-22 20:31] LABS: Glucose, Whole Blood 160 mg/dL (60-115)
[2024-03-22] MEDS: traMADoL HCL 50 MG TABLET 25 MG PO (20:57)
[2024-03-22] MEDS: cefTRIAXone sodium 1 GM VIAL IVPUSH (20:57)
[2024-03-22] MEDS: Insulin Glargine,Hum.rec.anlog 100 UNIT/ML 10 ML VIAL 30 UNIT SUBCUT (20:58)
[2024-03-23] VITALS (10 sets, daily range): BP systolic 141–151; BP diastolic 64–86; PULSE 74–88; RESP 16–18; TEMP 36.3–36.7; O2SAT 93–95
[2024-03-23] MEDS: Albuterol/Iprat 2.5/0.5MG 3 ML AMPUL.NEB INHALE ×4 (01:01→20:38)
[2024-03-23] MEDS: Doxycycline Hyclate 100 MG in 0.9 % Sodium Chloride 250 ML 166.67 MG IV ×2 (01:14→13:32)
[2024-03-23] MEDS: Omeprazole 20 MG CAPSULE.DR PO (05:32)
[2024-03-23] MEDS: Fluticasone/Vilanterol 200/25 BLST.W.DEV 1 PUFF INHALE (07:29)
[2024-03-23 07:52] LABS: Glucose, Whole Blood 87 mg/dL (60-115)
[2024-03-23 07:54] LABS: MANUAL DIFF FLAG NO
[2024-03-23 07:59] LABS: Basophils Absolute Auto 0.1 X10*3/uL (0.0-0.2); Basophils Percent Auto 0.5 % (0-2); Eosinophils Absolute Auto 0.3 X10*3/uL (0.0-0.4); Eosinophils Percent Auto 2.1 % (0-4); Hematocrit 38.7 % (42.0-52.0); Imm Gran Abs Auto 0.25 X10*3/uL (0.00-0.03); Imm Gran Pct Auto 1.9 % (0.0-0.4); Lymphocytes Absolute Auto 2.2 X10*3/uL (1.2-4.9); Lymphocytes Percent Auto 16.3 % (20-40); Mean Corpuscular Volume 90.4 fL (80.0-98.0); Mean Platelet Volume 12.5 fL (9.4-12.4); Monocytes Absolute Auto 1.3 X10*3/uL (0.1-1.2); Monocytes Percent Auto 9.9 % (2-11); Neutrophils Absolute Auto 9.3 x10*3/uL (2.0-8.3); Neutrophils Percent Auto 69.3 % (45-73); Platelet Count 347 X10*3/uL (160-400); Red Blood Count 4.28 X10*6/uL (4.60-5.80); Red Cell Distribution Width 14.8 % (11.0-16.0); White Blood Count 13.4 X10*3/uL (4.8-10.8)
[2024-03-23 08:31] LABS: Alanine Aminotransferase 8 U/L (0-40); Albumin Level 2.5 g/dL (3.5-5.0); Alkaline Phosphatase 135 U/L (39-117); Anion Gap 14 (12-20); Aspartate Amino Transferase 16 U/L (5-37); Bilirubin Total 0.2 mg/dL (0.0-1.0); Blood Urea Nitrogen 39 mg/dL (9-16); Calcium 9.1 mg/dL (8.4-10.2); Carbon Dioxide 21 mmol/L (22-29); Chloride 111 mmol/L (96-108); Estimated Glomerular Filt Rate 22; Glucose Fasting 87 mg/dL (60-99); Potassium 4.5 mmol/L (3.3-5.1); Sodium 141 mmol/L (135-145)
[2024-03-23] MEDS: Atorvastatin Calcium 80 MG TABLET PO (09:17)
[2024-03-23] MEDS: Cholecalciferol (Vitamin D3) 25 MCG TABLET 50 MCG PO (09:17)
[2024-03-23] MEDS: allopurinoL 100 MG TABLET 50 MG PO (09:17)
[2024-03-23] MEDS: traMADoL HCL 50 MG TABLET 25 MG PO ×2 (09:17→22:25)
[2024-03-23] MEDS: Gabapentin 400 MG CAPSULE 800 MG PO (09:17)
[2024-03-23] MEDS: Insulin Glargine,Hum.rec.anlog 100 UNIT/ML 10 ML VIAL 30 UNIT SUBCUT ×2 (09:18→22:27)
[2024-03-23] MEDS: Ezetimibe 10 MG TABLET PO (09:18)
[2024-03-23] MEDS: Losartan Potassium 50 MG TABLET 100 MG PO (09:18)
[2024-03-23] MEDS: Aspirin 81 MG TAB.CHEW PO (09:18)
[2024-03-23] MEDS: Empagliflozin 10 MG TABLET PO (09:18)
[2024-03-23] MEDS: carvediloL 25 MG TABLET PO ×2 (09:18→22:25)
[2024-03-23] MEDS: amLODIPine Besylate 2.5 MG TABLET PO (09:18)
[2024-03-23] MEDS: 0.9 % Sodium Chloride Flush 3 ML SYRINGE IVFLUSH ×2 (09:19→16:45)
[2024-03-23 11:08] LABS: Glucose, Whole Blood 180 mg/dL (60-115)
[2024-03-23] MEDS: Insulin Lispro 100 UNIT/ML 3 ML VIAL SUBCUT ×3 (13:32→22:27)
--- NOTE | 2024-03-23 14:21 | HO.PM.IMPN ---
Subjective Subjective Date of Service: 03/23/24 Interval History: Uneventful evening. No acute events Review of Systems Denies chest pain Denies shortness of breath Denies nausea vomiting diarrhea Denies fever chills Physical Exam Vital Signs: Vital Signs: Last Vital Signs Temp 97.9 F 03/23/24 07:26 Pulse 74 03/23/24 07:30 Resp 16 03/23/24 11:05 BP 150/86 H 03/23/24 07:26 Pulse Ox 93 03/23/24 07:26 O2 Del Method Nasal Cannula 03/23/24 07:26 O2 Flow Rate 2 03/23/24 07:26 BMI result Body Mass Index 37.9 Const: Other: No acute issues resting quietly Resp: Other: Diminished but clear throughout Cardio: Other: No S4; positive S1-S2; no S3 murmurs rubs or gallops GI: Other: Obese nontender positive bowel sounds Extrem: Other: Positive edema bilateral Objective Data Active Medications Acetaminophen (Acetaminophen 325 Mg Tablet) 650 mg PO Q6H PRN PRN Reason: Pain, Mild (Pain Scale 1-3), fever or headache Albuterol/Ipratropium (Albuterol/Iprat 2.5/0.5mg 3 Ml Ampul.Neb) 3 ml INHALE RQ4H WHILE AWAKE [facility] Last Admin: 03/23/24 11:05 Dose: Not Given Documented By: KENY Non-Admin Reason: Patient Asleep Albuterol/Ipratropium (Albuterol/Iprat 2.5/0.5mg 3 Ml Ampul.Neb) 3 ml INHALE RQ4H WHILE AWAKE PRN PRN Reason: Shortness of Breath/Wheezing Last Admin: 03/23/24 01:01 Dose: 3 ml Documented By: SHARON Allopurinol (Allopurinol 100 Mg Tablet) 50 mg PO DAILY [facility] Last Admin: 03/23/24 09:17 Dose: 50 mg Documented By: MARCO ANTONIO Amlodipine Besylate (Amlodipine Besylate 2.5 Mg Tablet) 2.5 mg PO DAILY [facility]; Protocol Last Admin: 03/23/24 09:18 Dose: 2.5 mg Documented By: MARCO ANTONIO Aspirin (Aspirin 81 Mg Tab.Chew) 81 mg PO DAILY [facility] Last Admin: 03/23/24 09:18 Dose: 81 mg Documented By: MARCO ANTONIO Atorvastatin Calcium (Atorvastatin Calcium 80 Mg Tablet) 80 mg PO DAILY [facility] Last Admin: 03/23/24 09:17 Dose: 80 mg Documented By: MARCO ANTONIO Calcium Carbonate (Calcium Carbonate 750 Mg Tab.Chew) 750 mg PO Q4H PRN PRN Reason: Heartburn Carvedilol (Carvedilol 25 Mg Tablet) 25 mg PO BID [facility]; Protocol Last Admin: 03/23/24 09:18 Dose: 25 mg Documented By: MARCO ANTONIO Ceftriaxone Sodium (Ceftriaxone Sodium 1 Gm Vial) 1 gm IVPUSH Q24H [facility] Last Admin: 03/22/24 20:57 Dose: 1 gm Documented By: STEVEN Clonazepam (Clonazepam 0.5 Mg Tablet) 0.5 mg PO TID [facility] Last Admin: 03/23/24 09:29 Dose: Not Given Documented By: MARCO ANTONIO Non-Admin Reason: Patient Refused Divalproex Sodium (Divalproex Sodium Er 500 Mg Tab.Er.24h) 1,000 mg PO BEDTIME [facility] Last Admin: 03/22/24 21:00 Dose: Not Given Documented By: STEVEN Non-Admin Reason: Patient Refused Duloxetine HCl (Duloxetine Hcl 30 Mg Capsule.) 30 mg PO BEDTIME [facility] Last Admin: 03/22/24 21:00 Dose: Not Given Documented By: STEVEN Non-Admin Reason: Patient Refused Duloxetine HCl (Duloxetine Hcl 60 Mg Capsule.) 60 mg PO DAILY [facility] Last Admin: 03/23/24 09:29 Dose: Not Given Documented By: MARCO ANTONIO Non-Admin Reason: Patient Refused Ezetimibe (Ezetimibe 10 Mg Tablet) 10 mg PO DAILY [facility] Last Admin: 03/23/24 09:18 Dose: 10 mg Documented By: MARCO ANTONIO Empagliflozin (Empagliflozin 10 Mg Tablet) 10 mg PO DAILY [facility] Last Admin: 03/23/24 09:18 Dose: 10 mg Documented By: MARCO ANTONIO Enoxaparin Sodium (Enoxaparin Sodium 40 Mg/0.4 Ml Syringe) 40 mg SUBCUT Q24H [facility] Last Admin: 03/22/24 17:31 Dose: 40 mg Documented By: DOBRODestiney Fluoxetine HCl (Fluoxetine Hcl 20 Mg Capsule) 40 mg PO DAILY [facility] Last Admin: 03/23/24 09:29 Dose: Not Given Documented By: MARCO ANTONIO Non-Admin Reason: Patient Refused Fluticasone/Vilanterol (Fluticasone/Vilanterol 200/25 Blst.W.Dev) 1 puff INHALE DAILY [facility] Last Admin: 03/23/24 07:29 Dose: 1 puff Documented By: KENY Gabapentin (Gabapentin 400 Mg Capsule) 800 mg PO DAILY [facility] Last Admin: 03/23/24 09:17 Dose: 800 mg Documented By: MARCO ANTONIO Glucose (Glucose Gel 15 Gm Gel..Gram.) 15 gm PO Q15M PRN; Protocol PRN Reason: per Hypoglycemia Standing Ord. Guaifenesin/Dextromethorphan (Guaifenesin Dm 200/20/10 Ml 10 Ml Syrup) 10 ml PO Q6H PRN PRN Reason: Cough Last Admin: 03/21/24 05:22 Dose: 10 ml Documented By: SHANEKA Doxycycline Hyclate 100 mg/ (Sodium Chloride) 250 mls @ 166.67 mls/hr IV Q12H [facility] Last Admin: 03/23/24 13:32 Dose: 166.67 mls/hr Documented By: JORGE Dextrose (D10) 250 mls @ 750 mls/hr IV Q15M PRN; Protocol PRN Reason: per Hypoglycemia Standing Ord. Insulin Glargine (Insulin Glargine,Hum.Rec.Anlog 100 Unit/Ml 10 Ml Vial) 30 unit SUBCUT BEDTIME [facility] Last Admin: 03/22/24 20:58 Dose: 30 unit Documented By: STEVEN Insulin Glargine (Insulin Glargine,Hum.Rec.Anlog 100 Unit/Ml 10 Ml Vial) 30 unit SUBCUT DAILY [facility] Last Admin: 03/23/24 09:18 Dose: 30 unit Documented By: MARCO ANTONIO Insulin Human Lispro (Insulin Lispro 100 Unit/Ml 3 Ml Vial) 0 unit SUBCUT QIDACHS [facility]; Protocol Last Admin: 03/23/24 13:32 Dose: 2 unit Documented By: JORGE Ketotifen Fumarate (Ketotifen Fumarate 0.025% Oph 5 Ml Drpbtl) 1 drop EYE-BOTH BID PRN PRN Reason: allergies Losartan Potassium (Losartan Potassium 50 Mg Tablet) 100 mg PO DAILY [facility]; Protocol Last Admin: 03/23/24 09:18 Dose: 100 mg Documented By: MARCO ANTONIO Magnesium Hydroxide (Milk Of Magnesia 30 Ml Oral.Susp) 30 ml PO DAILY PRN PRN Reason: Constipation Meclizine HCl (Meclizine Hcl 25 Mg Tablet) 25 mg PO TID PRN PRN Reason: dizziness Melatonin (Melatonin 3 Mg Tablet) 6 mg PO BEDTIME PRN PRN Reason: Insomnia Omeprazole (Omeprazole 20 Mg Capsule.Dr) 20 mg PO DAILY@0630 [facility] Last Admin: 03/23/24 05:32 Dose: 20 mg Documented By: STEVEN Ondansetron HCl (Ondansetron Hcl 4 Mg/2 Ml Vial) 4 mg IVPUSH Q8H PRN PRN Reason: Nausea and Vomiting Sodium Chloride (0.9 % Sodium Chloride Flush 3 Ml Syringe) 3 ml IVFLUSH QSHIFT [facility] Last Admin: 03/23/24 09:19 Dose: 3 ml Documented By: MARCO ANTONIO Tramadol HCl (Tramadol Hcl 50 Mg Tablet) 25 mg PO BID [facility] Last Admin: 03/23/24 09:17 Dose: 25 mg Documented By: MARCO ANTONIO Trazodone HCl (Trazodone Hcl 50 Mg Tablet) 150 mg PO BEDTIME PRN PRN Reason: Sleep Vitamin D (Cholecalciferol (Vitamin D3) 25 Mcg Tablet) 50 mcg PO DAILY [facility] Last Admin: 03/23/24 09:17 Dose: 50 mcg Documented By: MARCO ANTONIO Ziprasidone (Ziprasidone 80 Mg Capsule) 80 mg PO BEDTIME [facility] Last Admin: 03/22/24 21:00 Dose: Not Given Documented By: STEVEN Non-Admin Reason: Patient Refused Labs 03/23/24 06:46 03/23/24 06:46 Labs: Laboratory Results - last 24 hr 03/22/24 03/22/24 03/23/24 16:16 20:27 06:46 MCV 90.4 MCH 28.0 MCHC 31.0 RDW 14.8 Plt Count 347 MPV 12.5 H Immature Gran % (Auto) 1.9 H Neut % (Auto) 69.3 Lymph % (Auto) 16.3 L [place] % (Auto) 9.9 Eos % (Auto) 2.1 Baso % (Auto) 0.5 Lymph # (Auto) 2.2 [place] # (Auto) 1.3 H Eos # (Auto) 0.3 Baso # (Auto) 0.1 Abs Immat Gran (auto) 0.25 H Absolute Neuts (auto) 9.3 H Absolute Nucleated RBC 0.000 Nucleated RBC % (auto) 0.0 Anion Gap 14 Estim Creat Clear Calc 36.0 Estimated GFR 22 POC Glucose 155 H 160 H Fasting Glucose 87 Calcium 9.1 Total Bilirubin 0.2 AST 16 ALT 8 Alkaline Phosphatase 135 H Total Protein 6.0 L Albumin 2.5 L 03/23/24 03/23/24 07:27 10:57 MCV MCH MCHC RDW Plt Count MPV Immature Gran % (Auto) Neut % (Auto) Lymph % (Auto) [place] % (Auto) Eos % (Auto) Baso % (Auto) Lymph # (Auto) [place] # (Auto) Eos # (Auto) Baso # (Auto) Abs Immat Gran (auto) Absolute Neuts (auto) Absolute Nucleated RBC Nucleated RBC % (auto) Anion Gap Estim Creat Clear Calc Estimated GFR POC Glucose 87 180 H Fasting Glucose Calcium Total Bilirubin AST ALT Alkaline Phosphatase Total Protein Albumin Microbiology Microbiology Results: Microbiology 03/21/24 16:48 Blood Culture - Preliminary Blood - Venous No growth after 24 hours. 03/21/24 16:48 Blood Culture - Preliminary Blood - Venous No growth after 24 hours. 03/20/24 13:00 Blood Culture - Preliminary Blood - Venous No growth after 48 hours. 03/20/24 12:58 Blood Culture - Preliminary Blood - Venous No growth after 48 hours. Assessment and Plan (1) Respiratory failure with hypoxia and hypercapnia: Status: Acute (2) Multifocal pneumonia: Status: Acute Plan Pt is a 53-year-old Lao-speaking male with a PMH significant for?COPD on home 2L O2 prn, HTN, HLD, CVA w/ right-sided hemiparesis, insulin-dependent type 2 diabetes, CKD 3, GERD, REGI not yet approved fro CPAP, and gout who presents to the ED with?SOB, hemoptysis, and fatigue x2-3 days. Reports phlegm has been yellow-colored and flecked with blood. Pt will be admitted to the hospital for treatment and further evaluation of NICOLAS, hyperglycemia, and acute on chronic hypoxic respiratory failure in the setting of multifocal pneumonia with sepsis. 1.Acute on chronic hypoxic respiratory failure in the setting of multifocal pneumonia with sepsis -qualifying sleep study overnight; respiratory to arrange for machine at home -ceftriaxone/doxycycline(4) -adjust pending cultures -[place] -titrate supplemental O2 to 2L >90-92, wean as tolerated 2.NICOLAS -creatinine remains elevated; gentle volume repletion overnight -follow renals/divalents 3.Insulin-dependent type 2 diabetes -increased Lantus, 30 units BID...good response -lispro correctional scale -Diabetic diet -adjust as indicated 4.HTN -acceptable control on current therapies -adjust as indicated Full Code Lovenox Requires ongoing hospitalization for IV antibiotics to treat multifocal pneumonia Quality Stroke Does the patient have a stroke diagnosis?: No VTE Prior VTE?: No VTE Risk Level:: Medical - moderate - high VTE Device Contraindication: Treatment Not Indicated VTE Drug Contraindication: N/A - Med Ordered
[2024-03-23 16:11] LABS: Glucose, Whole Blood 256 mg/dL (60-115)
[2024-03-23] MEDS: Enoxaparin Sodium 40 MG/0.4 ML SYRINGE SUBCUT (16:45)
[2024-03-23 20:46] LABS: Glucose, Whole Blood 265 mg/dL (60-115)
[2024-03-23] MEDS: cefTRIAXone sodium 1 GM VIAL IVPUSH (22:27)
[2024-03-24] VITALS (13 sets, daily range): BP systolic 135–186; BP diastolic 72–96; PULSE 76–104; RESP 12–20; TEMP 36.6–36.7; O2SAT 92–97
[2024-03-24] MEDS: Doxycycline Hyclate 100 MG in 0.9 % Sodium Chloride 250 ML 166.67 MG IV (00:49)
[2024-03-24] MEDS: 0.9 % Sodium Chloride Flush 3 ML SYRINGE IVFLUSH ×4 (00:49→21:51)
[2024-03-24] MEDS: Omeprazole 20 MG CAPSULE.DR PO (05:41)
[2024-03-24] MEDS: Albuterol/Iprat 2.5/0.5MG 3 ML AMPUL.NEB INHALE ×4 (06:15→19:29)
[2024-03-24 06:37] LABS: Glucose, Whole Blood 76 mg/dL (60-115)
[2024-03-24] MEDS: Atorvastatin Calcium 80 MG TABLET PO (06:48)
[2024-03-24] MEDS: Aspirin 81 MG TAB.CHEW PO (06:48)
[2024-03-24] MEDS: amLODIPine Besylate 2.5 MG TABLET PO ×2 (06:49→17:26)
[2024-03-24] MEDS: carvediloL 25 MG TABLET PO ×2 (06:49→21:51)
--- NOTE | 2024-03-24 06:52 | PC.NURSE ---
0640. Pt asking for his fingerstick blood sugar to be checked and blood pressure. Patient reports he feels slight chest pressure mid-sternal described as dull and nonradiating. POC 76 cup of OJ with one packet of sugar offered and drank. BP 179/96 automatic and consistent in both arms. HR 76. Gave patient morning blood pressure medications, cholesterol medication and aspirin as ordered. Encouraged patient to CDB as LS bilateral congestion. Patietn cough phlegm up x2 moderate amount in tissue and reported chest pressure resolved. Patient presently sitting in chair, speaking to family and watching television. Alert oriented x4. plesanant and cooperative.
[2024-03-24 07:30] LABS: Glucose, Whole Blood 116 mg/dL (60-115)
[2024-03-24] MEDS: Fluticasone/Vilanterol 200/25 BLST.W.DEV 1 PUFF INHALE (08:42)
[2024-03-24] MEDS: Gabapentin 400 MG CAPSULE 800 MG PO (08:51)
[2024-03-24] MEDS: allopurinoL 100 MG TABLET 50 MG PO (08:52)
[2024-03-24] MEDS: Losartan Potassium 50 MG TABLET 100 MG PO (08:52)
[2024-03-24] MEDS: FLUoxetine HCl 20 MG CAPSULE 40 MG PO (08:52)
[2024-03-24] MEDS: Empagliflozin 10 MG TABLET PO (08:52)
[2024-03-24] MEDS: Cholecalciferol (Vitamin D3) 25 MCG TABLET 50 MCG PO (08:53)
[2024-03-24] MEDS: traMADoL HCL 50 MG TABLET 25 MG PO ×2 (08:53→21:48)
[2024-03-24] MEDS: Ezetimibe 10 MG TABLET PO (08:54)
[2024-03-24] MEDS: Insulin Glargine,Hum.rec.anlog 100 UNIT/ML 10 ML VIAL 30 UNIT SUBCUT ×2 (08:55→21:50)
[2024-03-24 11:35] LABS: Glucose, Whole Blood 145 mg/dL (60-115)
--- NOTE | 2024-03-24 13:55 | HO.PM.IMPN ---
Subjective Subjective Date of Service: 03/24/24 Interval History: Offers no acute complaints, tolerating CPAP at night, on 2 L of home oxygen, denies fever, no chills, no cough no sputum production tolerating diet with no nausea, no vomiting or abdominal pain. Review of Systems All other system reviewed and are negative Physical Exam Vital Signs: Vital Signs: Last Vital Signs Temp 97.9 F 03/24/24 07:29 Pulse 77 03/24/24 11:36 Resp 18 03/24/24 11:36 BP 153/84 H 03/24/24 07:29 Pulse Ox 96 03/24/24 07:29 O2 Del Method Nasal Cannula 03/24/24 07:29 O2 Flow Rate 3 03/24/24 07:29 BMI result Body Mass Index 37.9 Const: Other: General awake alert x3, sitting comfortably in no acute distress. Anicteric sclera Neck no JVD. CVS regular rate rhythm, Respiratory lungs diminished, clear to auscultation, no respiratory distress, no wheeze, no rhonchi. Gastrointestinal abdomen soft, obese, non tender, bowel sounds audible Extremities pitting edema. Neuro non focal Skin no rash Appropriate affect Objective Data Active Medications Acetaminophen (Acetaminophen 325 Mg Tablet) 650 mg PO Q6H PRN PRN Reason: Pain, Mild (Pain Scale 1-3), fever or headache Albuterol/Ipratropium (Albuterol/Iprat 2.5/0.5mg 3 Ml Ampul.Neb) 3 ml INHALE RQ4H WHILE AWAKE [facility] Last Admin: 03/24/24 11:35 Dose: 3 ml Documented By: FRANKLIN Albuterol/Ipratropium (Albuterol/Iprat 2.5/0.5mg 3 Ml Ampul.Neb) 3 ml INHALE RQ4H WHILE AWAKE PRN PRN Reason: Shortness of Breath/Wheezing Last Admin: 03/23/24 01:01 Dose: 3 ml Documented By: SHARON Allopurinol (Allopurinol 100 Mg Tablet) 50 mg PO DAILY [facility] [place] Last Admin: 03/24/24 08:52 Dose: 50 mg Documented By: JEAN Amlodipine Besylate (Amlodipine Besylate 2.5 Mg Tablet) 2.5 mg PO DAILY [facility] [place]; Protocol Last Admin: 03/24/24 06:49 Dose: 2.5 mg Documented By: DINH Aspirin (Aspirin 81 Mg Tab.Chew) 81 mg PO DAILY [facility] [place] Last Admin: 03/24/24 06:48 Dose: 81 mg Documented By: DINH Atorvastatin Calcium (Atorvastatin Calcium 80 Mg Tablet) 80 mg PO DAILY [facility] [place] Last Admin: 03/24/24 06:48 Dose: 80 mg Documented By: DINH Calcium Carbonate (Calcium Carbonate 750 Mg Tab.Chew) 750 mg PO Q4H PRN PRN Reason: Heartburn Carvedilol (Carvedilol 25 Mg Tablet) 25 mg PO BID [facility] [place]; Protocol Last Admin: 03/24/24 06:49 Dose: 25 mg Documented By: DINH Ceftriaxone Sodium (Ceftriaxone Sodium 1 Gm Vial) 1 gm IVPUSH Q24H [facility] [place] Last Admin: 03/23/24 22:27 Dose: 1 gm Documented By: JORGE Clonazepam (Clonazepam 0.5 Mg Tablet) 0.5 mg PO TID [facility] [place] Last Admin: 03/24/24 08:59 Dose: Not Given Documented By: JEAN Non-Admin Reason: Patient Refused Divalproex Sodium (Divalproex Sodium Er 500 Mg Tab.Er.24h) 1,000 mg PO BEDTIME [facility] [place] Last Admin: 03/23/24 22:34 Dose: Not Given Documented By: JORGE Non-Admin Reason: Patient Refused Duloxetine HCl (Duloxetine Hcl 30 Mg Capsule.) 30 mg PO BEDTIME [facility] [place] Last Admin: 03/23/24 22:34 Dose: Not Given Documented By: JORGE Non-Admin Reason: Patient Refused Duloxetine HCl (Duloxetine Hcl 60 Mg Capsule.) 60 mg PO DAILY [facility] [place] Last Admin: 03/24/24 10:38 Dose: Not Given Documented By: JEAN Non-Admin Reason: Patient Refused Ezetimibe (Ezetimibe 10 Mg Tablet) 10 mg PO DAILY [facility] [place] Last Admin: 03/24/24 08:54 Dose: 10 mg Documented By: JEAN Empagliflozin (Empagliflozin 10 Mg Tablet) 10 mg PO DAILY [facility] [place] Last Admin: 03/24/24 08:52 Dose: 10 mg Documented By: JEAN Enoxaparin Sodium (Enoxaparin Sodium 40 Mg/0.4 Ml Syringe) 40 mg SUBCUT Q24H [facility] [place] Last Admin: 03/23/24 16:45 Dose: 40 mg Documented By: JORGE Fluoxetine HCl (Fluoxetine Hcl 20 Mg Capsule) 40 mg PO DAILY [facility] [place] Last Admin: 03/24/24 08:52 Dose: 40 mg Documented By: JEAN Fluticasone/Vilanterol (Fluticasone/Vilanterol 200/25 Blst.W.Dev) 1 puff INHALE DAILY [facility] [place] Last Admin: 03/24/24 08:42 Dose: 1 puff Documented By: FRANKLIN Gabapentin (Gabapentin 400 Mg Capsule) 800 mg PO DAILY [facility] [place] Last Admin: 03/24/24 08:51 Dose: 800 mg Documented By: JEAN Glucose (Glucose Gel 15 Gm Gel..Gram.) 15 gm PO Q15M PRN; Protocol PRN Reason: per Hypoglycemia Standing Ord. Guaifenesin/Dextromethorphan (Guaifenesin Dm 200/20/10 Ml 10 Ml Syrup) 10 ml PO Q6H PRN PRN Reason: Cough Last Admin: 03/21/24 05:22 Dose: 10 ml Documented By: SHANEKA Doxycycline Hyclate 100 mg/ (Sodium Chloride) 250 mls @ 166.67 mls/hr IV Q12H [facility] [place] Last Infusion: 03/24/24 02:47 Dose: Infused Documented By: MANUEL Dextrose (D10) 250 mls @ 750 mls/hr IV Q15M PRN; Protocol PRN Reason: per Hypoglycemia Standing Ord. Insulin Glargine (Insulin Glargine,Hum.Rec.Anlog 100 Unit/Ml 10 Ml Vial) 30 unit SUBCUT BEDTIME [facility] [place] Last Admin: 03/23/24 22:27 Dose: 30 unit Documented By: JORGE Insulin Glargine (Insulin Glargine,Hum.Rec.Anlog 100 Unit/Ml 10 Ml Vial) 30 unit SUBCUT DAILY [facility] [place] Last Admin: 03/24/24 08:55 Dose: 30 unit Documented By: JEAN Insulin Human Lispro (Insulin Lispro 100 Unit/Ml 3 Ml Vial) 0 unit SUBCUT QIDACHS [facility] [place]; Protocol Last Admin: 03/24/24 11:45 Dose: Not Given Documented By: JEAN Non-Admin Reason: No Insulin Coverage Ketotifen Fumarate (Ketotifen Fumarate 0.025% Oph 5 Ml Drpbtl) 1 drop EYE-BOTH BID PRN PRN Reason: allergies Losartan Potassium (Losartan Potassium 50 Mg Tablet) 100 mg PO DAILY [facility] [place]; Protocol Last Admin: 03/24/24 08:52 Dose: 100 mg Documented By: JEAN Magnesium Hydroxide (Milk Of Magnesia 30 Ml Oral.Susp) 30 ml PO DAILY PRN PRN Reason: Constipation Meclizine HCl (Meclizine Hcl 25 Mg Tablet) 25 mg PO TID PRN PRN Reason: dizziness Melatonin (Melatonin 3 Mg Tablet) 6 mg PO BEDTIME PRN PRN Reason: Insomnia Omeprazole (Omeprazole 20 Mg Capsule.Dr) 20 mg PO DAILY@0630 [facility] [place] Last Admin: 03/24/24 05:41 Dose: 20 mg Documented By: MANUEL Ondansetron HCl (Ondansetron Hcl 4 Mg/2 Ml Vial) 4 mg IVPUSH Q8H PRN PRN Reason: Nausea and Vomiting Sodium Chloride (0.9 % Sodium Chloride Flush 3 Ml Syringe) 3 ml IVFLUSH QSHIFT [facility] [place] Last Admin: 03/24/24 08:54 Dose: 3 ml Documented By: JEAN Tramadol HCl (Tramadol Hcl 50 Mg Tablet) 25 mg PO BID [facility] [place] Last Admin: 03/24/24 08:53 Dose: 25 mg Documented By: JEAN Trazodone HCl (Trazodone Hcl 50 Mg Tablet) 150 mg PO BEDTIME PRN PRN Reason: Sleep Vitamin D (Cholecalciferol (Vitamin D3) 25 Mcg Tablet) 50 mcg PO DAILY [facility] [place] Last Admin: 03/24/24 08:53 Dose: 50 mcg Documented By: JEAN Ziprasidone (Ziprasidone 80 Mg Capsule) 80 mg PO BEDTIME [facility] [place] Last Admin: 03/23/24 22:34 Dose: Not Given Documented By: JORGE Non-Admin Reason: Patient Refused Labs 03/23/24 06:46 03/23/24 06:46 Labs: Laboratory Results - last 24 hr 03/23/24 03/23/24 03/24/24 16:05 20:37 06:33 POC Glucose 256 H 265 H 76 03/24/24 03/24/24 07:20 11:17 POC Glucose 116 H 145 H Microbiology Microbiology Results: Microbiology 03/21/24 16:48 Blood Culture - Preliminary Blood - Venous No growth after 48 hours. 03/21/24 16:48 Blood Culture - Preliminary Blood - Venous No growth after 48 hours. Assessment and Plan (1) Respiratory failure with hypoxia and hypercapnia: Status: Acute (2) Acute hyperglycemia: Status: Acute (3) Acute kidney injury: Status: Acute (4) Multifocal pneumonia: Status: Acute (5) Leukocytosis: Status: Acute Plan 53-year-old Frisian-speaking male with a PMH significant for?COPD on home 2L O2 prn, HTN, HLD, CVA w/ right-sided hemiparesis, insulin-dependent type 2 diabetes, CKD 3, GERD, REGI not yet approved fro CPAP, and gout who presents to the ED with?SOB, hemoptysis, and fatigue x2-3 days. Reports phlegm has been yellow-colored and flecked with blood. Pt will be admitted to the hospital for treatment and further evaluation of NICOLAS, hyperglycemia, and acute on chronic hypoxic respiratory failure in the setting of multifocal pneumonia with sepsis. 1.Acute on chronic hypoxic respiratory failure in the setting of multifocal pneumonia with sepsis -qualifying sleep study overnight; respiratory to arrange for machine at home -on IV ceftriaxone/doxycycline d 5 , blood cultures x2 negative, WBC improved from 24.9-13.4 -cont. duoNebs, guaifenesin -titrate supplemental O2 to 2L >90-92, wean as tolerated -recommend outpatient chest x-ray for clearance 2.NICOLAS on ckd 3 -creatinine trending down follow BMP avoid nephrotoxins , Lasix on hold, consult nephrology 3.Insulin-dependent type 2 diabetes -cont. Lantus, 30 units bedtime/ lispro correctional scale -Diabetic diet 4.HTN -on Coreg 25 b.i.d., amlodipine 2.5 mg daily and Cozaar 100 mg daily few high blood pressure readings follow BP closely and adjust medications 5. Grade 2 obesity recommend low-calorie diet Full Code Lovenox Requires ongoing hospitalization for IV antibiotics to treat multifocal pneumonia, follow renal function and arrangement of CPAP Quality Stroke Does the patient have a stroke diagnosis?: No VTE Prior VTE?: No VTE Risk Level:: Medical - moderate - high VTE Device Contraindication: Treatment Not Indicated VTE Drug Contraindication: N/A - Med Ordered
[2024-03-24] MEDS: Doxycycline Monohydrate 100 MG CAPSULE PO ×2 (14:53→21:47)
[2024-03-24 16:37] LABS: Glucose, Whole Blood 164 mg/dL (60-115)
[2024-03-24] MEDS: Insulin Lispro 100 UNIT/ML 3 ML VIAL SUBCUT ×2 (17:26→21:50)
[2024-03-24] MEDS: Enoxaparin Sodium 40 MG/0.4 ML SYRINGE SUBCUT (17:26)
[2024-03-24 21:15] LABS: Glucose, Whole Blood 351 mg/dL (60-115)
[2024-03-24] MEDS: DULoxetine HCl 30 MG CAPSULE.DR PO (21:47)
--- NOTE | 2024-03-24 22:08 | PC.NURSE ---
Per patient request and [facility] per diem interpreter. Blake Bhardwaj is patient's family and consumer sciences teacher and reports along with the patient that his psychiatrics medications are on hold secondary to being in the hospital and high risk for sedation with having pneumonia. Any questions Blake Fierroa can be called for clarification,
[2024-03-25] VITALS (7 sets, daily range): BP systolic 139–172; BP diastolic 74–86; PULSE 75–89; RESP 17–20; TEMP 36.6–36.9; O2SAT 90–96
[2024-03-25 01:58] LABS: Glucose, Whole Blood 155 mg/dL (60-115)
[2024-03-25] MEDS: Omeprazole 20 MG CAPSULE.DR PO (06:07)
[2024-03-25 07:24] LABS: Hematocrit 38.9 % (42.0-52.0); Hemoglobin 12.2 g/dl (14.0-18.0); Mean Corpuscular HGB Conc 31.4 g/dl (31.0-36.0); Mean Corpuscular Hemoglobin 27.9 pg (27.0-33.0); Platelet Count 371 X10*3/uL (160-400); Red Blood Count 4.37 X10*6/uL (4.60-5.80); Red Cell Distribution Width 14.4 % (11.0-16.0); White Blood Count 13.7 X10*3/uL (4.8-10.8)
[2024-03-25 07:34] LABS: Anion Gap 13 (12-20); Blood Urea Nitrogen 35 mg/dL (9-16); Calcium 9.6 mg/dL (8.4-10.2); Carbon Dioxide 23 mmol/L (22-29); Chloride 110 mmol/L (96-108); Creatinine Clr Calc Pharmacy 36.9; Estimated Glomerular Filt Rate 23; Glucose Random 116 mg/dL (60-115); Potassium 4.5 mmol/L (3.3-5.1); Sodium 141 mmol/L (135-145)
[2024-03-25 07:39] LABS: Glucose, Whole Blood 93 mg/dL (60-115)
[2024-03-25] MEDS: Fluticasone/Vilanterol 200/25 BLST.W.DEV 1 PUFF INHALE (08:20)
[2024-03-25] MEDS: Albuterol/Iprat 2.5/0.5MG 3 ML AMPUL.NEB INHALE ×3 (08:20→17:15)
[2024-03-25] MEDS: Losartan Potassium 50 MG TABLET 100 MG PO (08:55)
[2024-03-25] MEDS: Gabapentin 400 MG CAPSULE 800 MG PO (08:55)
[2024-03-25] MEDS: Atorvastatin Calcium 80 MG TABLET PO (08:56)
[2024-03-25] MEDS: Empagliflozin 10 MG TABLET PO (08:56)
[2024-03-25] MEDS: carvediloL 25 MG TABLET PO (08:56)
[2024-03-25] MEDS: Doxycycline Monohydrate 100 MG CAPSULE PO ×2 (08:56→17:23)
[2024-03-25] MEDS: Aspirin 81 MG TAB.CHEW PO (08:56)
[2024-03-25] MEDS: allopurinoL 100 MG TABLET 50 MG PO (08:56)
[2024-03-25] MEDS: Cholecalciferol (Vitamin D3) 25 MCG TABLET 50 MCG PO (08:57)
[2024-03-25] MEDS: amLODIPine Besylate 2.5 MG TABLET PO (08:57)
[2024-03-25] MEDS: Ezetimibe 10 MG TABLET PO (08:57)
[2024-03-25] MEDS: traMADoL HCL 50 MG TABLET 25 MG PO (08:57)
[2024-03-25] MEDS: Insulin Glargine,Hum.rec.anlog 100 UNIT/ML 10 ML VIAL 30 UNIT SUBCUT (09:09)
[2024-03-25] MEDS: 0.9 % Sodium Chloride Flush 3 ML SYRINGE IVFLUSH (09:11)
--- NOTE | 2024-03-25 11:18 | MHC.CM.PN ---
Addendum entered by Carito Hathaway RN 03/25/24 14:06: PT WILL NEE OUPT FOLLOW-UP SLEEP STUDY WAS INCONCLUSIVE PER RESPIRATORY Original Note: PT MEDICALLY CLEARED FOR DC HOME SELF CARE, NO SERVICES ORDERED, FAMILY FOR TRANSPORT
--- NOTE | 2024-03-25 11:53 | PM.CNNEP ---
History of Present Illness Reason for Consult Consult date: 03/25/24 Chief Complaint Chief complaint: Multifocal pneumonia, NICOLAS History of Present Illness Narrative: 53 yo male with a medical history of COPD on 2L at home PRN, HTN, HLD, CVA with hemiparesis, DMII, REGI, gout, GERD and CKD. reports sees a chemical checker in [place], he is not sure of name/site. States he has not seen in some time. pt requesting today to see [facility] nephrology as outpatient, will arrange per pt request. presenting 03/20 with shortness of breath, hemoptysis, fatigue for 2-3 days; being treated for PNA/sepsis nephrology consulted for NICOLAS 11/07/23 creatinine 2.32 03/21 3.35 03/22 3.09, 03/23 2.98, 03/25 2.91 urine September 2024 3+ protein; urine microalbumin/cr May 2022 pt had been taking lasix 80mg BID PO at home, in addition to losartan prior to hospitalization states for a few days he was not eating or drinking well due to malaise/dyspnea he reports he has had improvement, breathing is much more comfortable he states he has LE edema at baseline, worsening since lasix held Review of Systems Constitutional: Reports as per HPI and Reports headache(s) Denies dizziness and Reports headache(s) Cardiovascular: Denies chest pain, Reports leg edema, Denies lightheadedness and Denies dyspnea Respiratory: Reports cough and Denies dyspnea Gastrointestinal: Denies abdominal pain, Denies constipation, Denies diarrhea, Denies nausea and Denies vomiting Genitourinary: Denies hematuria, Denies oliguria, Denies difficulty urinating, Denies dysuria, Denies flank pain and Denies urinary incontinence Musculoskeletal: Denies arthralgias and Denies muscle cramps Skin/Breast: Denies erythema and Denies rash Denies dizziness and Reports headache(s) [facility] Past Medical History Medical History (Updated 03/25/24 @ 13:29 by Carito Roche, CASSIDY, TOOL GRINDER OPERATOR-BC) HTN (hypertension) Leukocytosis Memory loss Obesity Idiopathic gout of multiple sites GERD (gastroesophageal reflux disease) Hypertensive chronic kidney disease Secondary hyperparathyroidism, renal Sleep apnea Type 2 diabetes mellitus Schizoaffective disorder Chronic pain syndrome Diabetic polyneuropathy Gout Family History Family History Father Cancer Diabetes Mother Cancer Diabetes Colon cancer Family/Other Cancer Diabetes Surgical History Surgical History History of esophagogastroduodenoscopy (EGD) H/O colonoscopy Social History Social History Household Members: Spouse Housing: House Do you presently have visiting nurse or other home services: Yes Alcohol intake: never Patient Tobacco Use Status: Never used Tobacco service: No Meds Allergies Allergy/AdvReac Type Severity Reaction Status Date / Time Penicillins [PENICILLINS] Allergy Intermediate RASH, Verified 03/20/24 11:17 DIFFICULTY BREATHING Active Medications: Current Medications Acetaminophen (Acetaminophen 325 Mg Tablet) 650 mg PO Q6H PRN PRN Reason: Pain, Mild (Pain Scale 1-3), fever or headache Albuterol/Ipratropium (Albuterol/Iprat 2.5/0.5mg 3 Ml Ampul.Neb) 3 ml INHALE RQ4H WHILE AWAKE [facility] Last Admin: 03/25/24 11:29 Dose: 3 ml Albuterol/Ipratropium (Albuterol/Iprat 2.5/0.5mg 3 Ml Ampul.Neb) 3 ml INHALE RQ4H WHILE AWAKE PRN PRN Reason: Shortness of Breath/Wheezing Last Admin: 03/23/24 01:01 Dose: 3 ml Allopurinol (Allopurinol 100 Mg Tablet) 50 mg PO DAILY [facility] Last Admin: 03/25/24 08:56 Dose: 50 mg Amlodipine Besylate (Amlodipine Besylate 2.5 Mg Tablet) 2.5 mg PO DAILY [facility]; Protocol Last Admin: 03/25/24 08:57 Dose: 2.5 mg Aspirin (Aspirin 81 Mg Tab.Chew) 81 mg PO DAILY [facility] Last Admin: 03/25/24 08:56 Dose: 81 mg Atorvastatin Calcium (Atorvastatin Calcium 80 Mg Tablet) 80 mg PO DAILY [facility] Last Admin: 03/25/24 08:56 Dose: 80 mg Calcium Carbonate (Calcium Carbonate 750 Mg Tab.Chew) 750 mg PO Q4H PRN PRN Reason: Heartburn Carvedilol (Carvedilol 25 Mg Tablet) 25 mg PO BID [facility]; Protocol Last Admin: 03/25/24 08:56 Dose: 25 mg Clonazepam (Clonazepam 0.5 Mg Tablet) 0.5 mg PO TID [facility] Last Admin: 03/25/24 09:09 Dose: Not Given Divalproex Sodium (Divalproex Sodium Er 500 Mg Tab.Er.24h) 1,000 mg PO BEDTIME [facility] Last Admin: 03/24/24 22:06 Dose: Not Given Doxycycline Monohydrate (Doxycycline Monohydrate 100 Mg Capsule) 100 mg PO BID [facility] Last Admin: 03/25/24 08:56 Dose: 100 mg Duloxetine HCl (Duloxetine Hcl 30 Mg Capsule.Dr) 30 mg PO BEDTIME [facility] Last Admin: 03/24/24 21:47 Dose: 30 mg Duloxetine HCl (Duloxetine Hcl 60 Mg Capsule.Dr) 60 mg PO DAILY [facility] Last Admin: 03/25/24 09:09 Dose: Not Given Ezetimibe (Ezetimibe 10 Mg Tablet) 10 mg PO DAILY [facility] Last Admin: 03/25/24 08:57 Dose: 10 mg Empagliflozin (Empagliflozin 10 Mg Tablet) 10 mg PO DAILY [facility] Last Admin: 03/25/24 08:56 Dose: 10 mg Enoxaparin Sodium (Enoxaparin Sodium 40 Mg/0.4 Ml Syringe) 40 mg SUBCUT Q24H [facility] Last Admin: 03/24/24 17:26 Dose: 40 mg Fluoxetine HCl (Fluoxetine Hcl 20 Mg Capsule) 40 mg PO DAILY [facility] Last Admin: 03/25/24 09:08 Dose: Not Given Fluticasone/Vilanterol (Fluticasone/Vilanterol 200/25 Blst.W.Dev) 1 puff INHALE DAILY [facility] Last Admin: 03/25/24 08:20 Dose: 1 puff Gabapentin (Gabapentin 400 Mg Capsule) 800 mg PO DAILY [facility] Last Admin: 03/25/24 08:55 Dose: 800 mg Glucose (Glucose Gel 15 Gm Gel..Gram.) 15 gm PO Q15M PRN; Protocol PRN Reason: per Hypoglycemia Standing Ord. Guaifenesin/Dextromethorphan (Guaifenesin Dm 200/20/10 Ml 10 Ml Syrup) 10 ml PO Q6H PRN PRN Reason: Cough Last Admin: 03/21/24 05:22 Dose: 10 ml Dextrose (D10) 250 mls @ 750 mls/hr IV Q15M PRN; Protocol PRN Reason: per Hypoglycemia Standing Ord. Insulin Glargine (Insulin Glargine,Hum.Rec.Anlog 100 Unit/Ml 10 Ml Vial) 30 unit SUBCUT BEDTIME [facility] Last Admin: 03/24/24 21:50 Dose: 30 unit Insulin Glargine (Insulin Glargine,Hum.Rec.Anlog 100 Unit/Ml 10 Ml Vial) 30 unit SUBCUT DAILY [facility] Last Admin: 03/25/24 09:09 Dose: 30 unit Insulin Human Lispro (Insulin Lispro 100 Unit/Ml 3 Ml Vial) 0 unit SUBCUT QIDACHS [facility]; Protocol Last Admin: 03/25/24 09:09 Dose: Not Given Ketotifen Fumarate (Ketotifen Fumarate 0.025% Oph 5 Ml Drpbtl) 1 drop EYE-BOTH BID PRN PRN Reason: allergies Losartan Potassium (Losartan Potassium 50 Mg Tablet) 100 mg PO DAILY [facility]; Protocol Last Admin: 03/25/24 08:55 Dose: 100 mg Magnesium Hydroxide (Milk Of Magnesia 30 Ml Oral.Susp) 30 ml PO DAILY PRN PRN Reason: Constipation Meclizine HCl (Meclizine Hcl 25 Mg Tablet) 25 mg PO TID PRN PRN Reason: dizziness Melatonin (Melatonin 3 Mg Tablet) 6 mg PO BEDTIME PRN PRN Reason: Insomnia Omeprazole (Omeprazole 20 Mg Capsule.Dr) 20 mg PO DAILY@0630 [facility] Last Admin: 03/25/24 06:07 Dose: 20 mg Ondansetron HCl (Ondansetron Hcl 4 Mg/2 Ml Vial) 4 mg IVPUSH Q8H PRN PRN Reason: Nausea and Vomiting Sodium Chloride (0.9 % Sodium Chloride Flush 3 Ml Syringe) 3 ml IVFLUSH QSHIFT [facility] Last Admin: 03/25/24 09:11 Dose: 3 ml Tramadol HCl (Tramadol Hcl 50 Mg Tablet) 25 mg PO BID [facility] Last Admin: 03/25/24 08:57 Dose: 25 mg Trazodone HCl (Trazodone Hcl 50 Mg Tablet) 150 mg PO BEDTIME PRN PRN Reason: Sleep Vitamin D (Cholecalciferol (Vitamin D3) 25 Mcg Tablet) 50 mcg PO DAILY [facility] Last Admin: 03/25/24 08:57 Dose: 50 mcg Ziprasidone (Ziprasidone 80 Mg Capsule) 80 mg PO BEDTIME [facility] Last Admin: 03/24/24 22:06 Dose: Not Given Home Medications ?Medication ?Instructions ?Recorded ?Confirmed ?Last Taken ?Type allopurinol 100 mg tablet 50 mg PO DAILY 11/09/22 03/20/24 03/20/24 History blood-glucose meter,continuous 11/09/22 12/27/23 Unknown History ([employer]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) carvedilol 25 mg tablet 25 mg PO BID 11/09/22 03/20/24 03/20/24 History gabapentin 800 mg tablet 800 mg PO DAILY 11/09/22 03/20/24 03/20/24 History pantoprazole 40 mg tablet,delayed 40 mg PO DAILY 11/09/22 03/20/24 03/20/24 History release trazodone 150 mg tablet 150 mg PO BEDTIME PRN Sleep 11/09/22 03/20/24 03/20/24 History acetaminophen 500 mg tablet 1,000 mg PO Q6H PRN fever 06/08/23 03/20/24 03/20/24 History albuterol sulfate 2.5 mg/3 mL 2.5 mg inhalation Q6H PRN wheezing 06/08/23 03/20/24 03/20/24 History (0.083 %) solution for nebulization aspirin 81 mg chewable tablet 1 tab PO DAILY 06/08/23 03/20/24 03/20/24 History atorvastatin 80 mg tablet 80 mg PO DAILY 06/08/23 03/20/24 03/20/24 History calcium carbonate (Calcium Antacid) 400 mg PO DAILY 06/08/23 03/20/24 03/20/24 History carboxymethylcellulose sodium 0.5 1 drp ophthalmic (eye) NEEDED 06/08/23 03/20/24 03/20/24 History % eye drops in a dropperette dry eyes (Lubricant Eye Drops) cholecalciferol (vitamin D3) 50 50 mcg PO DAILY 06/08/23 03/20/24 03/20/24 History mcg (2,000 unit) tablet clonazepam 0.5 mg tablet 0.5 mg PO TID 06/08/23 03/20/24 03/20/24 History divalproex 500 mg tablet,extended 1,000 mg PO BEDTIME 06/08/23 03/20/24 03/20/24 History release 24 hr (Depakote ER) ezetimibe 10 mg tablet 10 mg PO DAILY 06/08/23 03/20/24 03/20/24 History insulin regular hum U-500 conc 500 155 unit subcut BEDTIME 06/08/23 03/20/24 03/20/24 History unit/mL(3 mL) subcut pen (Humulin R U-500 (Conc) Insulin Kwikpen) insulin regular hum U-500 conc 500 250 unit subcut DAILY 06/08/23 03/20/24 03/20/24 History unit/mL(3 mL) subcut pen (Humulin R U-500 (Conc) Insulin Kwikpen) lidocaine 5 % topical patch 1 patch topical DAILY PRN Pain 06/08/23 03/20/24 03/20/24 History omega-3 300 mg-dha 120 mg-epa 180 1 cap PO BID 06/08/23 03/20/24 03/20/24 History mg-fish oil 1,000 mg capsule tiotropium bromide 1.25 2 puff inhalation DAILY 06/08/23 03/20/24 03/20/24 History mcg/actuation mist for inhalation (Spiriva Respimat) tramadol 50 mg tablet 50 mg PO Q8H PRN severe pain 06/08/23 03/20/24 03/20/24 History ziprasidone HCl 80 mg capsule 80 mg PO BEDTIME 06/08/23 03/20/24 03/20/24 History (Darlyn) blood-glucose sensor (Dexcom G7 #1 ea 07/28/23 12/27/23 Unknown History Sensor device) fluticasone propionate 230 2 puff inhalation DAILY 07/28/23 03/20/24 03/20/24 History mcg-salmeterol 21 mcg/actuation HFA inhaler (Advair HFA) losartan 100 mg tablet 100 mg PO DAILY 07/28/23 03/20/24 03/20/24 History pen needle, diabetic 31 gauge x #1,200 ea 07/28/23 12/27/23 03/20/24 History 3/16 (BD Ultra-Fine Mini Pen Needle) ammonium lactate 12 % lotion 1 appl topical DAILY 03/20/24 03/20/24 03/20/24 History duloxetine 30 mg capsule,delayed 30 mg PO BEDTIME 03/20/24 03/20/24 03/20/24 History release duloxetine 60 mg capsule,delayed 60 mg PO DAILY 03/20/24 03/20/24 03/20/24 History release fluoxetine 40 mg capsule 40 mg PO DAILY 03/20/24 03/20/24 03/20/24 History ketotifen fumarate 0.025 % (0.035 1 drp ophthalmic (eye) BID PRN 03/20/24 03/20/24 03/20/24 History %) eye drops (Eye Itch Relief) allergies silver sulfadiazine 1 % topical 1 appl topical DAILY 03/20/24 03/20/24 03/20/24 History cream (SSD) Physical Exam Vital Signs: Last Vital Signs Temp 98.5 F 03/25/24 07:36 Pulse 81 03/25/24 11:29 Resp 18 03/25/24 11:29 BP 139/86 03/25/24 07:36 Pulse Ox 96 03/25/24 07:36 O2 Del Method Nasal Cannula 03/25/24 07:36 O2 Flow Rate 2 03/25/24 07:36 BMI result Body Mass Index 37.9 Const General: no acute distress, alert and awake Resp Effort & Inspection: normal respiratory effort and able to speak in complete sentences Auscultation: clear to auscultation bilaterally Cardio Jugular venous distension: no JVD Rate: regular rate Rhythm: regular rhythm Heart sounds: S1 normal heart sound present and S2 normal heart sound present GI Palpation (GI): Soft to palpation and nontender General: Yes no CVA tenderness Back/Spine/Pelvis Back: no CVA tenderness Skin Lesions: no lesions Rashes: no rashes Extrem General: Yes edema (+2 LE edema, pitting) Results Lab Results 03/25/24 06:10 03/25/24 06:10 Lab results: Chemistry 03/23/24 03/25/24 06:46 06:10 Sodium 141 141 Potassium 4.5 4.5 Carbon Dioxide 21 L 23 BUN 39 H 35 H Creatinine 2.98 H 2.91 H Calcium 9.1 9.6 Hematology 03/23/24 03/25/24 06:46 06:10 WBC 13.4 H 13.7 H Hgb 12.0 L 12.2 L Plt Count [id number] Assessment and Plan (1) Acute kidney injury: Status: Acute (2) Multifocal pneumonia: Status: Acute (3) CKD (chronic kidney disease): Qualifiers: Chronic kidney disease stage: stage 3 (moderate) Chronic kidney disease stage 3 subtype: stage 3b (GFR 30-44) Qualified Code(s): N18.32 - Chronic kidney disease, stage 3b Status: Acute Plan Pt with NICOLAS on CKD most likely tubular from hypoperfusion - poor PO intake prior to hospitalization while on furosemide and losartan; may have component of obstruction based on US done today- US ordered today to rule out obstruction- shows pelvic fullness vs bilateral mild hydronephrosis, recommend mensah placement overnight and will reassess in the morning when official renal US read recommend continuing to hold furosemide until mensah placement and reassessment in a.m. updated UA, urine protein and creatinine, urine sodium - protein/creatinine ratio ~[address] Sage Procedures Date of Service Date of Service: 03/25/24
[2024-03-25 13:02] LABS: Glucose, Whole Blood 244 mg/dL (60-115)
[2024-03-25] MEDS: Insulin Lispro 100 UNIT/ML 3 ML VIAL SUBCUT ×2 (13:23→17:22)
[2024-03-25 13:30] LABS: Appearance Urine Clear; Color Urine Yellow; Glucose Urine UA >=1000 mg/dL (Negative); Leukocyte Esterase Urine Negative (Negative); Nitrite Urine Negative (Negative); PH 5.5 (5.0-9.0); Specific Gravity - Urine 1.025 (1.005-1.025); UMIC TRIGGER UA YES; Urine Blood Trace (Negative); Urine Ketones Negative (Negative); Urine Protein >=1000 (4+) mg/dL (Neg-Trace)
[2024-03-25 13:50] LABS: Bacteria Urine None Seen (None Seen)
[2024-03-25 14:07] LABS: Creatinine Urine 76.47 mg/dL
[2024-03-25 14:35] LABS: Total Protein Urine Random 1071 mg/dL (<12)
[2024-03-25 16:05] LABS: Glucose, Whole Blood 227 mg/dL (60-115)
--- NOTE | 2024-03-25 16:49 | PM.DS ---
DS: Providers Provider Date of Service: 03/25/24 Date of admission: 03/20/24 15:52 Date of discharge: 03/25/24 Primary care physician: Katrin López MD Consults: 03/21/24 01:57 Consult to Wound Care Routine Reason for consultation: DARK BBRUISING TO ABDOMEN 03/24/24 14:05 Consult to Nephrology Routine Consulting Provider: [facility] Reason for consultation: acute on ckd DS: Diagnosis Discharge Diagnosis (1) Acute kidney injury: Status: Acute (2) Multifocal pneumonia: Status: Acute (3) CKD (chronic kidney disease): Status: Acute DS: Summary Hospital Course Hospital Course: Date of Service: 03/20/24 Chief Complaint: SOB Pt is a 53-year-old Qatari-speaking male with a PMH significant for?COPD on home 2L O2 prn, HTN, HLD, CVA w/ right-sided hemiparesis, insulin-dependent type 2 diabetes, CKD 3, REGI not yet approved fro CPAP, gout, and GERD who presents to the ED with?SOB, hemoptysis, and fatigue x2-3 days. Reports phlegm has been yellow-colored and flecked with blood. Also complains of chest tightness associated with deep breathing and cough, as well as 2 episodes of loose stool during this time. Has been using home inhalers and prn O2 constantly with little relief. Reports has been eating and drinking normally. No nausea or vomiting. Denies fever or chills. Patient also states has been compliant with all of his medications, though he is overall a poor historian and it is unclear how compliant he is with his diabetic medications. Reports sugars are normally in the 200-300s. In the ED pt was tachycardic up to 110, hypertensive up to 154/77, and desatting into the 80s on RA and improved to 95% on 4L OxyMask. Labs were significant for leukocytosis 24.9, sodium 130, BUN 49, creatinine 3.30 (elevated from 2.32 on 11/06), random glucose 649, alk-phos 120, protein 5.9, and albumin 2.5. Stable H&H. Lactic acid WNL at 1.7. Initial troponin 12.8. Beta hydroxybutyrate WNL at 0.07. VBG pH 7.27 with pCO2 55 and bicarb 26. Tested negative for flu, RSV, COVID. CXR showed multifocal pneumonia of right lung. EKG demonstrated normal sinus rhythm without evidence of significant ischemic changes, similar to previous. Pt was treated with 3.5 L IVF, DuoNebs, cefepime, doxycycline, and insulin lispro 10 units. Pt will be admitted to the hospital for treatment and further evaluation of NICOLAS, hyperglycemia, and acute on chronic hypoxic respiratory failure in the setting of multifocal pneumonia with sepsis. Hospital course; 53-year-old Qatari-speaking male with a PMH significant for?COPD on home 2L O2 prn, HTN, HLD, CVA w/ right-sided hemiparesis, insulin-dependent type 2 diabetes, CKD 3, GERD, REGI not yet approved fro CPAP, and gout who presents to the ED with?SOB, hemoptysis, and fatigue x2-3 days. Reports phlegm has been yellow-colored and flecked with blood. Pt will be admitted to the hospital for treatment and further evaluation of NICOLAS, hyperglycemia, and acute on chronic hypoxic respiratory failure in the setting of multifocal pneumonia with sepsis. 1.Acute on chronic hypoxic respiratory failure in the setting of multifocal pneumonia with sepsis admitted to medical floor treated with IV ceftriaxone and doxycycline finish 5 day course of antibiotics blood cultures were negative WBC improved patient was treated with updraft and oxygen, currently on baseline oxygen 2 L with stable oxygenation , also require treatment with CPAP with underlying history of obstructive sleep apnea, since patient hemodynamically stable, therefore being discharged home, Recommend outpatient follow-up with pulmonology for sleep study to qualify for home CPAP. 2.NICOLAS on ckd 3 renal function improved but creatinine remains elevated seen by Nephrology , recommended further workup but patient wishes to follow up with his primary nephrology. 3.Insulin-dependent type 2 diabetes cont.home medications. 4.HTN -cont. Coreg 25 b.i.d., amlodipine 2.5 mg daily and Cozaar 100 mg daily. Time Attestation Discharge Coordination Time (in mins): 40 Quality: Safe Use of Opioids Does Pt have an Active Cancer Diagnosis on the Problem List?: No Quality: Stroke Does the patient have a stroke diagnosis?: No Physical Exam Vital Signs: Vital Signs: Last Vital Signs Temp 98.2 F 03/25/24 15:32 Pulse 89 03/25/24 15:32 Resp 17 03/25/24 15:32 BP 172/74 H 03/25/24 15:32 Pulse Ox 96 03/25/24 15:32 O2 Del Method Nasal Cannula 03/25/24 15:32 O2 Flow Rate 3 03/25/24 15:32 BMI result Body Mass Index 37.9 Const: Other: General awake alert x3, sitting comfortably in no acute distress. Anicteric sclera Neck no JVD. CVS regular rate rhythm, Respiratory lungs diminished, clear to auscultation, no respiratory distress, no wheeze, no rhonchi. Gastrointestinal abdomen soft, obese, non tender, bowel sounds audible Extremities pitting edema. Neuro non focal Skin no rash Appropriate affect DS: Data Data Completed and Pending Labs on day of discharge: Laboratory Results - last 24 hr 03/24/24 03/25/24 03/25/24 21:11 01:53 06:10 WBC 13.7 H RBC 4.37 L Hgb 12.2 L Hct 38.9 L MCV 89.0 MCH 27.9 MCHC 31.4 RDW 14.4 Plt Count 371 MPV 12.0 Absolute Nucleated RBC 0.000 Nucleated RBC % (auto) 0.0 Sodium 141 Potassium 4.5 Chloride 110 H Carbon Dioxide 23 Anion Gap 13 BUN 35 H Creatinine 2.91 H Estim Creat Clear Calc 36.9 Estimated GFR 23 POC Glucose 351 H* 155 H Random Glucose 116 H Calcium 9.6 Urine Color Urine Appearance Urine pH Ur Specific Martha Urine Protein Urine Glucose (UA) Urine Ketones Urine Blood Urine Nitrite Ur Leukocyte Esterase Urine RBC Urine WBC Ur Squamous Epith Cells Urine Bacteria Hyaline Casts U Random Total Protein Ur Random Sodium Urine Creatinine 03/25/24 03/25/24 03/25/24 07:33 12:55 12:59 WBC RBC Hgb Hct MCV MCH MCHC RDW Plt Count MPV Absolute Nucleated RBC Nucleated RBC % (auto) Sodium Potassium Chloride Carbon Dioxide Anion Gap BUN Creatinine Estim Creat Clear Calc Estimated GFR POC Glucose 93 244 H Random Glucose Calcium Urine Color Yellow Urine Appearance Clear Urine pH 5.5 Ur Specific Martha 1.025 Urine Protein >=1000 (4+) H Urine Glucose (UA) >=1000 H Urine Ketones Negative Urine Blood Trace H Urine Nitrite Negative Ur Leukocyte Esterase Negative Urine RBC 3-5 H Urine WBC 6-10 H Ur Squamous Epith Cells 3-5 Urine Bacteria None Seen Hyaline Casts 6-10 U Random Total Protein Ur Random Sodium Urine Creatinine 03/25/24 03/25/24 15:58 Unknown WBC RBC Hgb Hct MCV MCH MCHC RDW Plt Count MPV Absolute Nucleated RBC Nucleated RBC % (auto) Sodium Potassium Chloride Carbon Dioxide Anion Gap BUN Creatinine Estim Creat Clear Calc Estimated GFR POC Glucose 227 H Random Glucose Calcium Urine Color Urine Appearance Urine pH Ur Specific Martha Urine Protein Urine Glucose (UA) Urine Ketones Urine Blood Urine Nitrite Ur Leukocyte Esterase Urine RBC Urine WBC Ur Squamous Epith Cells Urine Bacteria Hyaline Casts U Random Total Protein 1071 H Ur Random Sodium 38.0 Urine Creatinine 76.47 Preliminary micro results at discharge 03/21/24 16:48 Blood Culture - Preliminary Blood - Venous No growth after 48 hours. 03/21/24 16:48 Blood Culture - Preliminary Blood - Venous No growth after 48 hours. Discharge Plan Discharge Anticipated Discharge Date/Time: 03/25/24 10:56 Patient Disposition: Home, Self-Care Discharge Diagnosis: Acute on chronic hypoxic and hypercarbic respiratory failure Multifocal pneumonia with sepsis NICOLAS on chronic kidney disease Referrals: Katrin Santoyo MD [Primary Care Provider] - 1 Week Discharge Medications: Continued ziprasidone HCl [Geodon] 80 mg capsule 80 mg PO BEDTIME atorvastatin 80 mg tablet 80 mg PO DAILY albuterol sulfate 2.5 mg /3 mL (0.083 %) solution for nebulization 2.5 mg inhalation Q6H PRN (Reason: wheezing) clonazepam 0.5 mg tablet 0.5 mg PO TID tramadol 50 mg tablet 50 mg PO Q8H PRN (Reason: severe pain) acetaminophen 500 mg tablet 1,000 mg PO Q6H PRN (Reason: fever) divalproex [Depakote ER] 500 mg tablet extended release 24 hr 1,000 mg PO BEDTIME lidocaine 5 % adhesive patch,medicated 1 patch topical DAILY PRN (Reason: Pain) calcium carbonate [Calcium Antacid] 200 mg calcium (500 mg) tablet,chewable 400 mg PO DAILY ezetimibe 10 mg tablet 10 mg PO DAILY carboxymethylcellulose sodium [Lubricant Eye Drops] 0.5 % dropperette 1 drp ophthalmic (eye) NEEDED cholecalciferol (vitamin D3) 50 mcg (2,000 unit) tablet 50 mcg PO DAILY Spiriva Respimat 1.25 mcg/actuation mist 2 puff INHALATION DAILY omega [id number]-lws-fish oil 300 mg (120 mg- 180mg)-1,000 mg capsule 1 cap PO BID aspirin 81 mg tablet,chewable 1 tab PO DAILY Humulin R U-500 (Conc) Kwikpen 500 unit/mL (3 mL) insulin pen 155 unit subcut BEDTIME Humulin R U-500 (Conc) Kwikpen 500 unit/mL (3 mL) insulin pen 250 unit subcut DAILY Rx Instructions: hold if BS < 100 fluoxetine 40 mg capsule 40 mg PO DAILY silver sulfadiazine [SSD] 1 % cream 1 appl topical DAILY ammonium lactate 12 % lotion 1 appl topical DAILY ketotifen fumarate [Eye Itch Relief] 0.025 % (0.035 %) drops 1 drp ophthalmic (eye) BID PRN (Reason: allergies) duloxetine 30 mg capsule,delayed release(DR/EC) 30 mg PO BEDTIME duloxetine 60 mg capsule,delayed release(DR/EC) 60 mg PO DAILY meclizine 25 mg tablet 25 mg PO TID PRN (Reason: dizziness) Qty: 14 0RF gabapentin 800 mg tablet 800 mg PO DAILY trazodone 150 mg tablet 150 mg PO BEDTIME PRN (Reason: Sleep) pantoprazole 40 mg tablet,delayed release (DR/EC) 40 mg PO DAILY carvedilol 25 mg tablet 25 mg PO BID Rx Instructions: must administer with a meal/food allopurinol 100 mg tablet 50 mg PO DAILY (DME) 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 See Rx Instructions .Route Rx Instructions: As directed fluticasone propion-salmeterol [Advair HFA] 230-21 mcg/actuation HFA aerosol inhaler 2 puff inhalation DAILY (DME) Dexcom G7 Sensor Device See Rx Instructions .ROUTE QWEEK Qty: 1 Rx Instructions: As directed (DME) pen needle, diabetic [BD Ultra-Fine Mini Pen Needle] 31 gauge x 3/16 needle See Rx Instructions .ROUTE DIRECTED Qty: 1200 Rx Instructions: As directed sodium,potassium,mag sulfates [Suprep Bowel Prep Kit] 17.5-3.13-1.6 gram recon soln See Rx Instructions PO .COMPLEX Qty: 354 0RF Rx Instructions: DILUTE; drink 1/2 at 6-8 pm and half at 11 PM- 1AM Discontinued amlodipine 2.5 mg tablet 2.5 mg PO DAILY furosemide 80 mg tablet 80 mg PO BID empagliflozin 25 mg tablet 25 mg PO DAILY No Action furosemide 80 mg tablet 80 mg PO DAILY olmesartan 20 mg tablet 20 mg PO DAILY Qty: 30 0RF Discharge Orders: Discharge Order (Routine); Ordered 03/25/24 Ordered By: Renetta Chawla Diet: Diabetic diet Activity on Discharge: As tolerated Stand Alone Forms: Patient Portal Discharge page Print Language: Qatari Care Plan Goals: Continue oxygen 2 L at home For pneumonia Take doxycycline 1 tablet twice daily for 3 more days Dose of Norvasc increased to 5 mg daily Dose of Jardiance reduced to 10 mg 1 tablet daily Hold Lasix due to worsening renal function Health Concerns: Acute on chronic kidney disease call primary Nephrology at a.m. for close follow-up on kidney function Plan of Treatment: Outpatient follow-up with primary care physician call for appointment Assessment: As above Discharge Date/Time: 03/25/24 17:45
== END 2024-03-25 17:45 | disposition home or self-care (01) | DRG 720 ==
LOC: HO.ED 12:31 → HO.EDOVER 16:11 → HO.IMC 03-21 00:12
PROVIDERS: Hospitalist; Nurse Practitioner Family; Physician Assistant; Admitting Provider Student in an Organized Health Care Education/Training Program; Emergency Provider Emergency Medicine; PCP Student in an Organized Health Care Education/Training Program; Visit Provider Hospitalist
DX: A41.9 Sepsis, unspecified organism (principal); J96.21 Acute and chronic respiratory failure with hypoxia; J18.9 Pneumonia, unspecified organism; E87.1 Hypo-osmolality and hyponatremia; I69.351 Hemiplegia and hemiparesis following cerebral infarction affecting right dominant side; J44.0 Chronic obstructive pulmonary disease with (acute) lower respiratory infection; N17.9 Acute kidney failure, unspecified; E11.22 Type 2 diabetes mellitus with diabetic chronic kidney disease; Z99.81 Dependence on supplemental oxygen; N25.81 Secondary hyperparathyroidism of renal origin; E11.65 Type 2 diabetes mellitus with hyperglycemia; E78.5 Hyperlipidemia, unspecified; E66.812 Obesity, class 2; Z68.37 Body mass index [BMI] 37.0-37.9, adult; Z71.3 Dietary counseling and surveillance; M10.9 Gout, unspecified; R04.2 Hemoptysis; F39 Unspecified mood [affective] disorder; I12.9 Hypertensive chronic kidney disease with stage 1 through stage 4 chronic kidney disease, or unspecified chronic kidney disease; G47.33 Obstructive sleep apnea (adult) (pediatric); N18.30 Chronic kidney disease, stage 3 unspecified; Z20.822 Contact with and (suspected) exposure to COVID-19; Z79.82 Long term (current) use of aspirin; Z79.4 Long term (current) use of insulin; Z79.51 Long term (current) use of inhaled steroids; Z79.899 Other long term (current) drug therapy
CPT/HCPCS: 0241U; 36415; 36600; 71046; 76775; 80048; 80053; 80076; 81001; 82010; 82570; 82803; 82947; 83036; 83605; 84156; 84300; 84484; 85007; 85025; 85027; 85610; 85730; 87040; 93005; 94640; 94660; 99285; J0692; J0696; J1650; J7120

== ENCOUNTER → 2024-03-20 11:14 | Outpatient (BNV) | payer MEDICAID, SELFPAY | PROVIDERS: Emergency Provider Emergency Medicine; PCP Student in an Organized Health Care Education/Training Program; Visit Provider Radiology Diagnostic Radiology | DX: R06.02 Shortness of breath (principal) | CPT/HCPCS: 71046 ==

== ENCOUNTER → 2024-03-20 11:14 | Outpatient (BNV) | payer MEDICAID, SELFPAY | PROVIDERS: Admitting Provider Student in an Organized Health Care Education/Training Program; Emergency Provider Emergency Medicine; PCP Student in an Organized Health Care Education/Training Program; Visit Provider Internal Medicine Cardiovascular Disease | DX: R07.9 Chest pain, unspecified (principal) | CPT/HCPCS: 93010 ==

== ENCOUNTER → 2024-03-20 15:52 | Outpatient (BNV) | payer MEDICAID, SELFPAY | PROVIDERS: Admitting Provider Student in an Organized Health Care Education/Training Program; Emergency Provider Emergency Medicine; PCP Student in an Organized Health Care Education/Training Program; Visit Provider Student in an Organized Health Care Education/Training Program | DX: J96.21 Acute and chronic respiratory failure with hypoxia (principal); J96.22 Acute and chronic respiratory failure with hypercapnia; E11.65 Type 2 diabetes mellitus with hyperglycemia; N17.9 Acute kidney failure, unspecified; J18.9 Pneumonia, unspecified organism; D72.829 Elevated white blood cell count, unspecified | CPT/HCPCS: 99223; 99232; 99239 ==

== ENCOUNTER → 2024-03-20 15:52 | Outpatient (BNV) | payer MEDICAID, SELFPAY | PROVIDERS: Admitting Provider Student in an Organized Health Care Education/Training Program; Emergency Provider Emergency Medicine; PCP Student in an Organized Health Care Education/Training Program; Visit Provider Nurse Practitioner Family | DX: N17.9 Acute kidney failure, unspecified (principal); J18.9 Pneumonia, unspecified organism; N18.32 Chronic kidney disease, stage 3b | CPT/HCPCS: 99222 ==

== ENCOUNTER 2024-03-27 13:47 | Outpatient (REF) | payer MEDICAID, SELFPAY ==
[2024-03-27 16:42] LABS: Basophils Absolute Auto 0.1 X10*3/uL (0.0-0.2); Basophils Percent Auto 0.5 % (0-2); Eosinophils Absolute Auto 0.3 X10*3/uL (0.0-0.4); Eosinophils Percent Auto 2.4 % (0-4); Hematocrit 40.5 % (42.0-52.0); Hemoglobin 12.7 g/dl (14.0-18.0); Imm Gran Abs Auto 0.14 X10*3/uL (0.00-0.03); Imm Gran Pct Auto 1.1 % (0.0-0.4); Lymphocytes Absolute Auto 2.3 X10*3/uL (1.2-4.9); Lymphocytes Percent Auto 18.6 % (20-40); MANUAL DIFF FLAG NO; Mean Corpuscular HGB Conc 31.4 g/dl (31.0-36.0); Mean Corpuscular Hemoglobin 27.8 pg (27.0-33.0); Mean Corpuscular Volume 88.6 fL (80.0-98.0); Mean Platelet Volume 12.1 fL (9.4-12.4); Monocytes Absolute Auto 1.1 X10*3/uL (0.1-1.2); Monocytes Percent Auto 8.6 % (2-11); Neutrophils Absolute Auto 8.4 x10*3/uL (2.0-8.3); Neutrophils Percent Auto 68.8 % (45-73); Platelet Count 402 X10*3/uL (160-400); Red Blood Count 4.57 X10*6/uL (4.60-5.80); Red Cell Distribution Width 14.4 % (11.0-16.0); White Blood Count 12.3 X10*3/uL (4.8-10.8)
[2024-03-27 16:44] LABS: INTERNATIONAL NORM RATIO 0.9 (0.9-1.1)
[2024-03-27 17:11] LABS: Parathyroid Hormone Intact 498.5 pg/mL (8.7-77.1)
[2024-03-27 17:35] LABS: Creatinine Urine 65.94 mg/dL
[2024-03-27 17:46] LABS: Alanine Aminotransferase 24 U/L (0-40); Albumin Level 2.6 g/dL (3.5-5.0); Alkaline Phosphatase 140 U/L (39-117); Anion Gap 15 (12-20); Aspartate Amino Transferase 24 U/L (5-37); Bilirubin Total 0.1 mg/dL (0.0-1.0); Blood Urea Nitrogen 59 mg/dL (9-16); Calcium 9.2 mg/dL (8.4-10.2); Carbon Dioxide 24 mmol/L (22-29); Chloride 102 mmol/L (96-108); Estimated Glomerular Filt Rate 16; Glucose Random 502 mg/dL (60-115); Potassium 4.8 mmol/L (3.3-5.1); Sodium 136 mmol/L (135-145); Total Protein 6.2 g/dL (6.5-8.0)
[2024-03-27 17:49] LABS: Microalbumin Urine > 2000.0 mg/L
[2024-03-28 05:19] LABS: Estimated Average Glucose 312 mg/dL; Hemoglobin A1C 373.8186 umol/L; Hemoglobin A1c % 12.5 % (<6.0); Total Hemoglobin (HGBA1C) 3293.2494 umol/L
[2024-03-28 19:53] LABS: Complement C3 204 mg/dL (82-185)
[2024-03-29 14:24] LABS: IgA 279 mg/dL (47-310); IgG 605 mg/dL (600-1640); IgM 33 mg/dL (50-300)
[2024-04-01 01:14] LABS: VITAMIN D (1,25 OH) D3 17 pg/mL; Vit D (1,25-Dihydroxy) Total 17 pg/mL (18-72); Vitamin D (1,25 OH) D2 <8 pg/mL
== END 2024-03-27 13:48 | disposition home or self-care (01) ==
LOC: HO.LAB 13:47
PROVIDERS: PCP Student in an Organized Health Care Education/Training Program; Visit Provider Nurse Practitioner Family
DX: E11.29 Type 2 diabetes mellitus with other diabetic kidney complication (principal); D64.9 Anemia, unspecified; R80.9 Proteinuria, unspecified; N18.32 Chronic kidney disease, stage 3b; Z79.4 Long term (current) use of insulin; Z79.899 Other long term (current) drug therapy
CPT/HCPCS: 80053; 82043; 82570; 82652; 82784; 83036; 83970; 84100; 85025; 85610; 86160; 86334; 86335; 99212

== ENCOUNTER 2024-03-27 13:47 | Outpatient (AMB) | payer MEDICAID, SELFPAY ==
--- NOTE | 2024-03-27 13:48 | HO.NEPHOV_ITS ---
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 Bowl Paint Trimmer Services: Stone Fabricator Present Stone Fabricator Name: Darrel [id number] Accompanied by: Spouse Allergies Penicillins [PENICILLINS] Allergy (Intermediate, Verified 03/27/24 13:57) RASH, DIFFICULTY BREATHING Medication List - Last Reconciled 03/27/24 by Carito Roche, DNP, PIPE FITTINGS MOLDER-BC acetaminophen 1,000 mg PO Q6H PRN albuterol sulfate 2.5 mg inhalation Q6H PRN allopurinol 50 mg PO DAILY ammonium lactate 12% 1 appl topical DAILY aspirin 1 tab PO DAILY atorvastatin 80 mg PO DAILY blood-glucose meter,continuous (Dexcom G7 Tax Consultant) As directed blood-glucose sensor (Dexcom G7 Sensor device) As directed calcium carbonate (Calcium Antacid) 400 mg PO DAILY carboxymethylcellulose sodium 0.5% (Lubricant Eye Drops) 1 drp ophthalmic (eye) NEEDED carvedilol 25 mg PO BID cholecalciferol (vitamin D3) 50 mcg PO DAILY clonazepam 0.5 mg PO TID divalproex ER (Depakote ER) 1,000 mg PO BEDTIME duloxetine 30 mg PO BEDTIME duloxetine 60 mg PO DAILY ezetimibe 10 mg PO DAILY fluoxetine 40 mg PO DAILY fluticasone propion-salmeterol 230-21 mcg/actuation (Advair HFA) 2 puffs inhalation DAILY furosemide 80 mg PO DAILY gabapentin 800 mg PO DAILY insulin regular hum U-500 conc (Humulin R U-500 (Conc) Insulin Kwikpen) 155 units subcut BEDTIME insulin regular hum U-500 conc (Humulin R U-500 (Conc) Insulin Kwikpen) 250 units subcut DAILY ketotifen fumarate 0.025%(0.035%) (Eye Itch Relief) 1 drp ophthalmic (eye) BID PRN lidocaine 5% 1 patch topical DAILY PRN losartan 50 mg PO DAILY meclizine 25 mg PO TID PRN omega 6-zel-epp-fish oil 300 mg (120 mg- 180mg)-1,000 mg 1 cap PO BID pantoprazole 40 mg PO DAILY pen needle, diabetic (BD Ultra-Fine Mini Pen Needle) As directed silver sulfadiazine 1% (SSD) 1 appl topical DAILY sodium,potassium,mag sulfates 17.5-3.13-1.6 gram (Suprep Bowel Prep Kit) DILUTE; drink 1/2 at 6-8 pm and half at 11 PM- 1AM tiotropium bromide 1.25 mcg/actuation (Spiriva Respimat) 2 puffs inhalation DAILY tramadol 50 mg PO Q8H PRN trazodone 150 mg PO BEDTIME PRN ziprasidone HCl (Geodon) 80 mg PO BEDTIME HPI Comments Details: Darrel is a 53 y/o male with a medical history of longstanding DMII, REGI, HTN, HLD, CVA with hemiparesis (reports in 2019), DMII, REGI, gout, GERD, rheumatoid arthritis and CKD3b. PCP: Dr Katrin López at [facility] Has seen turf farmer in [place] in the past, requested transfer to [facility]. Here for hospital follow up/new patient visit. never smoker no alcohol denies other drug use outside of prescribed medication Lives at home with family, not working due to chronic pain for many years per pt Today is here for hospital follow up presented 03/20 with dyspnea, fatigue and was treated for multifocal pneumonia. Had NICOLAS on admission. 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 pt states he thinks he sees a director of human resources in [place] but he is not sure who he sees- no records on file echo in Apr 2023 with normal LV EF with mild LVH and impaired relaxation pattern. patient has elevated urine protein/creatinine ratio of ~14 previously elevated urine microalbumin/creatinine ratio >6,000 he states he believes his diabetes is well controlled on insulin and jardiance- reports sees an building insulation installer at [facility] Diabetes- under control per pt [facility] Medical History (Updated 03/27/24 @ 16:20 by Carito Roche, DNP, PIPE FITTINGS MOLDER-BC) HTN (hypertension) Leukocytosis Memory loss Obesity Idiopathic gout of multiple sites GERD (gastroesophageal reflux disease) Hypertensive chronic kidney disease Secondary hyperparathyroidism, renal Sleep apnea Type 2 diabetes mellitus Schizoaffective disorder Chronic pain syndrome Diabetic polyneuropathy Gout Surgical History History of esophagogastroduodenoscopy (EGD) H/O colonoscopy Family History Father Cancer Diabetes Mother Cancer Diabetes Colon cancer Family/Other Cancer Diabetes Social History Household Members: Spouse Housing: House Do you presently have visiting nurse or other home services: Yes Alcohol intake: never Patient Tobacco Use Status: Never used Tobacco service: No Review of Systems Const Reports fatigue, Denies headache(s), Denies malaise, Denies poor appetite and Denies weakness ENT Denies dizziness and Denies headache(s) Card Denies chest pain, Reports leg edema, Denies lightheadedness, Reports dyspnea and Reports dyspnea on exertion Resp Denies cough, Reports dyspnea and Reports dyspnea on exertion GI Denies abdominal pain, Denies diarrhea, Denies nausea and Denies vomiting Denies hematuria, Denies oliguria, Denies difficulty urinating, Denies dysuria, Denies urinary frequency and Denies urinary incontinence Musc Reports arthralgias (reports chronic joint pain in back and others, has RA), Denies joint swelling and Denies muscle weakness Skin/Breast Denies rash Neuro Denies dizziness, Denies headache(s) and Denies weakness Endo Reports fatigue Physical Exam Const General: no acute distress, alert and awake Nutritional Appearance: obese Neck Neck: Yes no JVD Resp Other: wearing supplemental O2- 2L NC Effort & Inspection: normal respiratory effort and able to speak in complete sentences Auscultation: clear to auscultation bilaterally Cardio Jugular venous distension: no JVD Rate: regular rate Rhythm: regular rhythm Heart sounds: S1 normal heart sound present and S2 normal heart sound present GI Palpation (GI): Soft to palpation and nontender General: Yes no CVA tenderness Back/Spine/Pelvis Back: no CVA tenderness Skin Lesions: no lesions Rashes: no rashes Extrem General: Yes edema (BLE edema +1 ) Results Reviewed Nephrology Results: Hgb 12.2 g/dl (14.0-18.0) L 03/25/24 WBC 13.7 X10*3/uL (4.8-10.8) H 03/25/24 Plt Count 371 X10*3/uL (160-400) 03/25/24 Sodium 141 mmol/L (135-145) 03/25/24 Potassium 4.5 mmol/L (3.3-5.1) 03/25/24 Chloride 110 mmol/L (96-108) H 03/25/24 Carbon Dioxide 23 mmol/L (22-29) 03/25/24 BUN 35 mg/dL (9-16) H 03/25/24 Creatinine 2.91 mg/dL (0.5-1.4) H 03/25/24 Calcium 9.6 mg/dL (8.4-10.2) 03/25/24 Phosphorus Pending 03/27/24 PTH Intact Pending 03/27/24 Urine Protein >=1000 (4+) mg/dL (Neg-Trace) H 4 Urine Creatinine 76.47 mg/dL 03/25/24 Renal US 03/25/24 Assessment & Plan Assessment & Plan (1) Type 2 diabetes mellitus: Code(s): E11.9 - Type 2 diabetes mellitus without complications Category: Medical Qualifiers: Diabetes mellitus long term acute care registered nurse insulin use: with intermediate use Diabetes mellitus complication status: with kidney complications Diabetes mellitus complication detail: with diabetic microalbuminuria Qualified Code(s): E11.29 - Type 2 diabetes mellitus with other diabetic kidney complication; R80.9 - Proteinuria, unspecified; 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.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 (2) CKD (chronic kidney disease): Code(s): N18.9 - Chronic kidney disease, unspecified Category: Medical Qualifiers: Chronic kidney disease stage: stage 3 (moderate) Chronic kidney disease stage 3 subtype: stage 3b (GFR 30-44) Qualified Code(s): N18.32 - Chronic kidney disease, stage 3b (3) Proteinuria: Code(s): R80.9 - Proteinuria, unspecified Category: Medical Qualifiers: Proteinuria type: persistent Qualified Code(s): R80.1 - Persistent proteinuria, unspecified (4) Anemia: Code(s): D64.9 - Anemia, unspecified Category: Medical Qualifiers: Anemia type: unspecified type Qualified Code(s): D64.9 - Anemia, unspecified (5) HTN (hypertension): Code(s): I10 - Essential (primary) hypertension Category: Medical Qualifiers: Hypertension type: primary hypertension Qualified Code(s): I10 - Essential (primary) hypertension Plan Baseline CKD3b with nephrotic-range proteinuria NICOLAS from hospitalizatoin improving but had not yet returned to baseline, will re-check BMP to assess current renal status CKD- most likely diabetic nephropathy, though differentials also include membranous nephropathy, minimal change disease, amyloidosis, FSGS pt reports he has never had a renal biopsy and is agreeable to this, so will plan for renal biopsy. Adivsed to stop aspirin 5 days prior to biopsy and then may re-start aspirin day following biopsy Lab studies as below for in-depth evaluation of CKD patient has soft blood pressures today, lasix dose has already been cut in half recently and patient remains slightly hypervolemic with LE edema and report of dyspnea- will continue lasix 80mg daily as prescribed, carvedilol 25mg BID advised stop losartan 100mg daily and start losartan 50mg daily - does have significant proteinuria so pending biopsy may need to increase this in the future Lab studies as below he will follow up in the office in two weeks advised patient to please bring all of his medications in so we can have an accurate medication list on file he will call in the mean time with questions, concerns Orders: Orders CT biopsy renal RT Today D64.9 - Anemia, unspecified, N18.32 - Chronic kidney disease, stage 3b, R80.9 - Proteinuria, unspecified Microalbumin, Random (w Creat) Today D64.9 - Anemia, unspecified, E11.9 - Type 2 diabetes mellitus without complications, N18.32 - Chronic kidney disease, stage 3b, R80.9 - Proteinuria, unspecified Creatinine Urine Today D64.9 - Anemia, unspecified, E11.9 - Type 2 diabetes mellitus without complications, N18.32 - Chronic kidney disease, stage 3b, R80.9 - Proteinuria, unspecified Complement C4 Today D64.9 - Anemia, unspecified, E11.9 - Type 2 diabetes mellitus without complications, N18.32 - Chronic kidney disease, stage 3b, R80.9 - Proteinuria, unspecified Vitamin D 1,25 dihydroxy Today D64.9 - Anemia, unspecified, E11.9 - Type 2 diabetes mellitus without complications, N18.32 - Chronic kidney disease, stage 3b, R80.9 - Proteinuria, unspecified Hemoglobin A1c Today D64.9 - Anemia, unspecified, E11.9 - Type 2 diabetes mellitus without complications, N18.32 - Chronic kidney disease, stage 3b, R80.9 - Proteinuria, unspecified Prothrombin Time INR Today D64.9 - Anemia, unspecified, E11.9 - Type 2 diabetes mellitus without complications, N18.32 - Chronic kidney disease, stage 3b, R80.9 - Proteinuria, unspecified Complete Blood Count Auto Diff Today D64.9 - Anemia, unspecified, E11.9 - Type 2 diabetes mellitus without complications, N18.32 - Chronic kidney disease, stage 3b, R80.9 - Proteinuria, unspecified Immunofixation Pnl, Serum Today D64.9 - Anemia, unspecified, E11.9 - Type 2 diabetes mellitus without complications, N18.32 - Chronic kidney disease, stage 3b, R80.9 - Proteinuria, unspecified Comprehensive Met. Panel Today D64.9 - Anemia, unspecified, E11.9 - Type 2 diabetes mellitus without complications, N18.32 - Chronic kidney disease, stage 3b, R80.9 - Proteinuria, unspecified Immunofixation, Random Urine Today D64.9 - Anemia, unspecified, E11.9 - Type 2 diabetes mellitus without complications, N18.32 - Chronic kidney disease, stage 3b, R80.9 - Proteinuria, unspecified Complement C3 Today D64.9 - Anemia, unspecified, E11.9 - Type 2 diabetes mellitus without complications, N18.32 - Chronic kidney disease, stage 3b, R80.9 - Proteinuria, unspecified Parathyroid Hormone Intact Today D64.9 - Anemia, unspecified, E11.9 - Type 2 diabetes mellitus without complications, N18.32 - Chronic kidney disease, stage 3b, R80.9 - Proteinuria, unspecified Phosphorus Today D64.9 - Anemia, unspecified, E11.9 - Type 2 diabetes mellitus without complications, N18.32 - Chronic kidney disease, stage 3b, R80.9 - Proteinuria, unspecified Medications: New losartan 50 mg PO DAILY 30 tabs 0RF HTN, CKD E11.9 - Type 2 diabetes mellitus without complications, I10 - Essential (primary) hypertension, N18.32 - Chronic kidney disease, stage 3b Coding Level of Care Code New Pt Level 4 (69057) Diagnoses Type 2 diabetes mellitus with diabetic microalbuminuria, with long-term current use of insulin E11.29; R80.9; Z79.4 Diabetes mellitus intermediate insulin use: with long term acute care registered nurse use Diabetes mellitus complication status: with kidney complications Diabetes mellitus complication detail: with diabetic microalbuminuria Stage 3b chronic kidney disease N18.32 Chronic kidney disease stage: stage 3 (moderate) Chronic kidney disease stage 3 subtype: stage 3b (GFR 30-44) Persistent proteinuria R80.1 Proteinuria type: persistent Anemia, unspecified type D64.9 Anemia type: unspecified type Primary hypertension I10 Hypertension type: primary hypertension Time Spent (min) 55 Comment 55 minutes spent assessing, counseling, documentation, chart review.
[2024-03-27 13:58] VITALS: BP 90/56; PULSE 104; O2SAT 94; BMI 37.5
[2024-03-27 14:34] VITALS: BP 105/60; PULSE 90
--- OUTSIDE RECORDS SUMMARY | 2024-03-29 14:10 | XMS_ITS | Continuity of Care Document ---
Author Organization 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 Name Role Phone José López MD, Katrin Ladd Primary Care Jeffrey naik Encounter [facility] Date(s): 02/16/24 - 03/22/[address] [address] Attending Physician: Celina Hayes MD Admitting Physician: Celina Hayes MD Referring Physician: Katrin Santoyo MD Encounter Type: Pre-Outpt Allergies, Adverse Reactions, Alerts Substance Criticality Severity Reaction Reaction Severity Status penicillin Active Medications 4-jose/nif/pent/doxep 10/8/8/5% 4-jose/nif/pent/doxep 10/8/8/5%, Refills 0, Maintenance, apply for pain - electrical pulse, 08/09/22 1:25:00 PM EDT, Supply Start Date: 08/09/22 Status: Ordered Repeat number: 1 Advair HFA 230 mcg / 21 mcg 2 puffs, Inhalation, 2 times a day, rinse mouth and throat after each use, # 3 each, 1 Refills, Maintenance, 08/25/22 6:29:00 PM EDT, Aerosol, [facility], Partial fill upon patient request if the prescription is for a schedule II opioid drug., 2 puffs Inhalation 2 times a day,Instr:rinse mouth and throat after each use, 176, cm, 08/17/22 14:18:00 EDT, Height Start Date: 08/25/22 Status: Ordered Quantity: 3.0 Unit: each Repeat number: 2 albuterol 0.083% inhalation solution 3 mL = 2.5 mg, Inhalation, Every 6 hours, PRN shortness of breath, # 120 each, 0 Refills, Maintenance, 08/09/22 1:19:00 PM EDT, Solution, Partial fill upon patient request if the prescription is for a schedule II opioid drug. Start Date: 08/09/22 Status: Ordered Quantity: 120.0 Unit: each Repeat number: 1 allopurinol 100 mg oral tablet 100 mg, 1, tablet, By Mouth, Daily, # 90 tablet, Refills 1, Tot. Refills 1, Maintenance, 08/25/22 6:25:00 PM EDT, Route to Pharmacy Electronically, [facility], Partial fill upon patient request if the prescription is for a schedule II opioid drug., 176, cm, 08/17/22 14:18:00 EDT, Height Start Date: 08/25/22 Status: Ordered Quantity: 90.0 Unit: tablet Repeat number: 2 aspirin 81 mg oral delayed release tablet 81 mg, 1, tablet, By Mouth, Daily, # 90 tablet, Refills 1, Tot. Refills 1, Maintenance, 08/25/22 6:25:00 PM EDT, Route to Pharmacy Electronically, [facility], Partial fill upon patientrequest if the prescription is for a schedule II opioid drug., 176, cm, 08/17/22 14:18:00 EDT, Height Start Date: 08/25/22 Status: Ordered Quantity: 90.0 Unit: tablet Repeat number: 2 atorvastatin 80 mg oral tablet 1 tablet = 80 mg, By Mouth, Daily, # 90 tablet, 1 Refills, Maintenance, 08/25/22 6:25:00 PM EDT, Tablet, [facility]., Partial fill upon patient request if the prescription is for a schedule II opioid drug., 176, cm, 08/17/22 14:18:00 EDT, Height Start Date: 08/25/22 Status: Ordered Quantity: 90.0 Unit: tablet Repeat number: 2 Blood Pressure Monitor See Instructions, # 1 each, Maintenance, Use to check blood pressure daily, 09/08/22 10:57:00 AM EDT,Supply, 176, cm, 08/26/22 17:00:00 EDT, Height Start Date: 09/08/22 Status: Ordered Quantity: 1.0 Unit: each Repeat number: 1 carvedilol 25 mg oral tablet 25 mg, 1, tablet, By Mouth, 2 times a day, with breakfast and dinner, # 180 tablet, Refills 1, Tot.Refills 1, Maintenance, 08/25/22 6:25:00 PM EDT, Route to Pharmacy Electronically, [facility], Partial fill upon patient request if the prescription is for a schedule II opioid drug., 176, cm, 08/17/22 14:18:00 EDT, Height Start Date: 08/25/22 Status: Ordered Quantity: 180.0 Unit: tablet Repeat number: 2 clonazePAM 0.5 mg oral tablet 1 tablet = 0.5 mg, By Mouth, 3 times a day, 0 Refills, Maintenance, 08/09/22 1:18:00 PM EDT, Tablet, Partial fill upon patient request if the prescription is for a schedule II opioid drug. Start Date: 08/09/22 Status: Ordered Repeat number: 1 Compression Stockings See Instructions, # 1 pack/packet, Refills 1, Tot. Refills 1, Maintenance, surgical, knee length 30-40 mm Hg. Use daily ICD-10: R22.43 Lifetime, 08/17/22 2:19:00 PM EDT, Supply Start Date: 08/17/22 Status: Ordered Quantity: 1.0 Unit: pack/packet Repeat number: 2 dexamethasone 1 mg oral tablet 1 tablet = 1 mg, By Mouth, Once, to be taken at 11pm, # 1 tablet, 0 Refills, Soft Stop, 09/15/23 12:07:00 PM EDT, [facility], Partial fill upon patient request if the prescription is for a schedule II opioid drug., 176, cm, 09/15/23 10:10:00 EDT, Height Start Date: 09/15/23 Status: Ordered Quantity: 1.0 Unit: tablet Repeat number: 1 Indication: Hyperglycemia, unspecified DEXCOM G7 RECIEVER DEXCOM G7 RECIEVER, See Instructions, # 1 each, Refills 0, Tot. Refills 0, Maintenance, Dexcom G7 gang leader use as directed. e11.9, 09/14/22 10:15:00 AM EDT, Compound, 176, cm, 09/14/22 9:47:00 EDT, Height Start Date: 09/14/22 Status: Ordered Quantity: 1.0 Unit: each Repeat number: 1 Dexcom G7 Sensor Dexcom G7 Sensor, See Instructions, # 10 each, Refills 3, Tot. Refills 3, Maintenance, Apply DexcomG7 sensor Every 10 days. e11.9, 02/16/24 1:53:00 PM EDT, Supply, 176, cm, 02/16/24 13:05:00 EDT, Height Start Date: 02/16/24 Status: Ordered Quantity: 10.0 Unit: each Repeat number: 4 Indication: Type 2 diabetes mellitus with diabetic nephropathy diclofenac 1% topical gel 1 application, Topically, 4 times a day, # 100 Gm, 0 Refills, Maintenance, 08/09/22 1:22:00 PM EDT, Gel, Partial fill upon patient request if the prescription is for a schedule II opioid drug. Start Date: 08/09/22 Status: Ordered Quantity: 100.0 Unit: g Repeat number: 1 ergocalciferol 29384 iu oral capsule 50,000 International_Units, 1, capsule, By Mouth, Every week, # 13 capsule, Refills 0, Tot. Refills0, Maintenance, 09/22/22 9:24:00 AM EDT, Route to Pharmacy Electronically, [facility], Partial fill upon patient request if the prescription is for a schedule II opioid drug., 176, cm,09/19/22 13:07:00 EDT, Height Start Date: 09/22/22 Stop Date: 12/21/22 Status: Ordered Quantity: 13.0 Unit: capsule Repeat number: 1 Eucerin Plus topical lotion 1 application, Topically, 2 times a day, PRN for dry skin, # 180 mL, 0 Refills, Maintenance, 08/26/22 5:33:00 PM EDT, Lotion, [facility], Partial fill upon patient request if the prescription is for a schedule II opioid drug., 1 application Topically 2 times a day,PRN:for dry skin, 176, cm, 08/26/22 17:00:00 EDT, Height Start Date: 08/26/22 Status: Ordered Quantity: 180.0 Unit: mL Repeat number: 1 fluticasone 50 mcg/inh nasal spray 2 sprays = 100 mcg, Nares, Both, Daily in AM, # 16 Gm, 3 Refills, Maintenance, 08/25/22 6:32:00 PM EDT, Nasal [place], [facility]., Partial fill upon patient request if the prescription is for a schedule II opioid drug., 2 sprays Nares, Both Daily in AM, 176, cm, 08/17/22 14:18:00 EDT, Height Start Date: 08/25/22 Status: Ordered Quantity: 16.0 Unit: g Repeat number: 4 Freestyle Lancets See Instructions, # 200 each, Refills 6, Tot. Refills 6, Maintenance, Use 4xday to check blood glucose Duration lifetime Dx E11.65, 09/13/23 4:38:00 PM EDT, Supply, 176, cm, 07/18/23 10:57:00 EDT, Height Start Date: 09/13/23 Status: Ordered Quantity: 200.0 Unit: each Repeat number: 7 Freestyle Lite Monitor See Instructions, # 1 each, Maintenance, Use 4xday to check blood glucose Duration lifetime Dx E11.9, 08/31/22 4:23:00 PM EDT, Supply, 176, cm, 08/26/22 17:00:00 EDT, Height Start Date: 08/31/22 Status: Ordered Quantity: 1.0 Unit: each Repeat number: 1 Freestyle Test Strips See Instructions, # 200 each, Refills 6, Tot. Refills 6, Maintenance, Use 4xday to check blood glucose Duration lifetime Dx E11.65, 09/13/23 4:38:00 PM EDT, Supply, 176, cm, 07/18/23 10:57:00 EDT, Height Start Date: 09/13/23 Status: Ordered Quantity: 200.0 Unit: each Repeat number: 7 furosemide 80 mg oral tablet 80 mg, 1, tablet, By Mouth, 2 times a day, # 60 tablet, Refills 0, Tot. Refills 0, Maintenance, 08/26/22 4:04:00 PM EDT, Route to Pharmacy Electronically, [facility]., 176, cm, 08/17/2313:18:00 EDT, Height Start Date: 08/26/22 Stop Date: 09/25/22 Status: Ordered Quantity: 60.0 Unit: tablet Repeat number: 1 gabapentin 800 mg oral tablet 2 tablet = 1,600 mg, By Mouth, 2 times a day, # 90 tablet, 0 Refills, Maintenance, 08/09/22 1:17:00 PM EDT, Tablet, Partial fill upon patient request if the prescription is for a schedule II opioid drug. Start Date: 08/09/22 Status: Ordered Quantity: 90.0 Unit: tablet Repeat number: 1 HumuLIN R Meghan (Concentrated) human recombinant 500 units/mL subcutaneous solution See Instructions, take 30 minute before each meal, max daily dose 800 unit daily, # 144 mL, 3 Refills, Maintenance, 02/16/24 1:51:00 PM EDT, [facility], 176, cm, 02/16/24 13:05:00EDT, Height Start Date: 02/16/24 Status: Ordered Quantity: 144.0 Unit: mL Repeat number: 4 Indication: Type 2 diabetes mellitus with diabetic nephropathy lidocaine 5% topical film 1 patch, Topically, Daily, PRN Pain , Mild, remove after 12 hours, # 13 each, 0 Refills, Maintenance, 08/09/22 1:18:00 PM EDT, Film, Partial fill upon patient request if the prescription is for a schedule II opioid drug. Start Date: 08/09/22 Status: Ordered Quantity: 13.0 Unit: each Repeat number: 1 losartan 50 mg oral tablet 50 mg, 1, tablet, By Mouth, Daily, # 90 tablet, Refills 0, Tot. Refills 0, Maintenance, 08/09/22 11:45:00 AM EDT, Route to Pharmacy Electronically, [facility], Partial fill upon patientrequest if the prescription is for a schedule II opioid drug., 176, cm, 08/04/22 16:02:00 EDT, Height Start Date: 08/09/22 Status: Ordered Quantity: 90.0 Unit: tablet Repeat number: 1 losartan 50 mg oral tablet 1 tablet = 50 mg, By Mouth, Daily, # 90 tablet, 1 Refills, Maintenance, 10/17/22 4:21:00 PM EDT, [facility]., 176, cm, 09/19/22 13:07:00 EDT, Height Start Date: 10/17/22 Stop Date: 04/15/23 Status: Ordered Quantity: 90.0 Unit: tablet Repeat number: 2 Ondansetron 0 Refills, Maintenance, 07/18/23 11:02:00 AM EDT, Partial fill upon patient request if the prescription is for a schedule II opioid drug. Start Date: 07/18/23 Status: Ordered Repeat number: 1 pantoprazole 40 mg oral delayed release tablet 1 tablet = 40 mg, By Mouth, Daily, # 7 tablet, 0 Refills, Maintenance, 08/26/22 2:59:00 PM EDT, EC Tablet, 176, cm, 08/17/22 14:18:00 EDT, Height Start Date: 08/26/22 Stop Date: 09/02/22 Status: Ordered Quantity: 7.0 Unit: tablet Repeat number: 1 Pen [place], 31 G x 5 mm BD Ultra Fine III See Instructions, # 112 each, Refills 8, Tot. Refills 8, Maintenance, use to inject insulin up to 4x day e11.65, 12/14/22 10:56:00 AM EDT, Supply, 176, cm, 10/31/22 13:11:00 EDT, Height Start Date: 12/14/22 Status: Ordered Quantity: 112.0 Unit: each Repeat number: 9 Spiriva Respimat 1.25 mcg/inh inhalation aerosol 2 puffs = 2.5 mcg, Inhalation, Daily, # 3 each, 1 Refills, Maintenance, 08/25/22 6:29:00 PM EDT, Aerosol, [facility] Partial fill upon patient request if the prescription is for a schedule II opioid drug., 176, cm, 08/17/22 14:18:00 EDT, Height Start Date: 08/25/22 Status: Ordered Quantity: 3.0 Unit: each Repeat number: 2 traZODone 150 mg oral tablet 1 tablet = 150 mg, By Mouth, Daily at bedtime, # 90 tablet, 0 Refills, Maintenance, 08/09/22 1:00:00 PM EDT, Tablet, [facility] Partial fill upon patient request if the prescription isfor a schedule II opioid drug., 176, cm, 08/04/22 16:02:00 EDT, Height Start Date: 08/09/22 Status: Ordered Quantity: 90.0 Unit: tablet Repeat number: 1 Triamcinolone 0.1% Dental By Mouth, 0 Refills, Maintenance Start Date: 08/09/22 Status: Ordered Repeat number: 1 Ventolin HFA 108 mcg/inh inhalation aerosol with adapter 2 puffs = 180 mcg, Inhalation, Every 4 hours, PRN Wheezing/Shortness of Breath, # 18 Gm, 0 Refills,Maintenance, 08/25/22 6:29:00 PM EDT, Inhaler, [facility]., Partial fill upon patientrequest if the prescription is for a schedule II opioid drug., 176, cm, 08/17/22 14:18:00 EDT, Height Start Date: 08/25/22 Status: Ordered Quantity: 18.0 Unit: g Repeat number: 1 Vitamin D3 50,000 intl units oral capsule 1 capsule = 1,250 mcg, By Mouth, Every 7 days, # 13 capsule, 0 Refills, Maintenance, 09/15/23 10:57:00 AM EDT, Capsule, [facility], Partial fill upon patient request if the prescription is for a schedule II opioid drug., 176, cm, 09/15/23 10:10:00 EDT, Height Start Date: 09/15/23 Stop Date: 12/14/23 Status: Ordered Quantity: 13.0 Unit: capsule Repeat number: 1 ziprasidone 40 mg oral capsule 1 capsule = 40 mg, By Mouth, Daily in AM, # 90 each, 0 Refills, Maintenance, 08/09/22 1:01:00 PM EDT,Capsule, [facility]., Partial fill upon patient request if the prescription is for aschedule II opioid drug., 176, cm, 08/04/22 16:02:00 EDT, Height Start Date: 08/09/22 Status: Ordered Quantity: 90.0 Unit: each Repeat number: 1 ziprasidone 80 mg oral capsule 1 capsule = 80 mg, By Mouth, Daily at supper, # 90 each, 0 Refills, Maintenance, 08/09/22 1:01:00 PM EDT, [facility]., Partial fill upon patient request if the prescription is for a schedule II opioid drug., 176, cm, 08/04/22 16:02:00 EDT, Height Start Date: 08/09/22 Status: Ordered Quantity: 90.0 Unit: each Repeat number: 1 Problem List Condition Confirmation Course Effective Dates [...] 2information and pathology of colonospcy in [facility] 09-09-2020 note 3per note - CT at outside location 4Completed a colonoscopy 2020 and had a cecum polyp. Biopsy tubular adenoma. repeat colonoscopy 7 years Social History Social History Type Response Smoking Status Never smoker entered on: 03/12/18 Sex Sex Representation Male (finding) Patient Care team information Care Team Personnel Name: José López MD, Katrin Ladd Position: [facility] Outreach Member Role: PCP Address: [address] [place] [address] Telecom: Care Team Related Persons Name: MARILU BOYD Insurance Providers Guarantor name: MADONNA MARKHAM Health Plan Information #: 1 Payer: [employer] Member Number: [id number] Policy Number: NA Group Number: NA Health Plan Information #: 2 Payer: [employer] Member Number: [id number] Policy Number: NA Group Number: NA
--- OUTSIDE RECORDS SUMMARY | 2024-03-29 14:10 | XMS_ITS | Continuity of Care Document ---
Author Organization [facility] Address [address] [place] [address]- Care Team Providers Care Phone Technician Name Role Phone José López MD, Katrin Ladd Primary Care Lizetteelena naik Encounter [facility] Date(s[place] 12/08/23 - 01/07/24 [facility] [address] [place] [id number] Attending Physician: Ani Atkinson Admitting Physician: [...] 1 Refills, Maintenance, 08/25/22 18:29:00 EDT, [facility]erosol, [facility] fill upon patient request if [...] 08/25/22 18:25:00 EDT, Route to Pharmacy Electronically, [facility], Partial fill upon patientrequest if the prescription is for a schedule II op... Start Date: 08/25/22 Status: Ordered aspirin 81 mg oral delayed release tablet 81 mg, 1, tablet, By Mouth, Daily, # 90 tablet, Refills 1, Tot. Refills 1, Maintenance, 08/25/22 18:25:00 EDT, Route to Pharmacy Electronically, [facility]., Partial fill upon patient request if the prescription is for a schedule II opi... Start Date: 08/25/22 Status: Ordered atorvastatin 80 mg oral tablet 1 tablet = 80 mg, By Mouth, Daily, # 90 tablet, 1 Refills, Maintenance, 08/25/22 18:25:00 EDT, Tablet, [facility], Partial fill upon patient request if [...] 08/25/22 18:25:00 EDT, Route to Pharmacy Electronically, [facility], Partial fill upon patient request if [...] 0 Refills, Soft Stop, 09/15/23 12:07:00 EDT, [facility], Partial fill upon patient request if the prescription isfor a schedule II opioid drug., 176, cm, 09/15/23 1... Start Date: 09/15/23 Status: Ordered DEXCOM G7 RECIEVER DEXCOM G7 RECIEVER, See Instructions, # 1 each, Refills 0, Tot. Refills 0, Maintenance, Dexcom G7 plastics repairer use as directed. e11.9, 09/14/22 10:15:00 EDT, [...] 8 Refills, Maintenance, 12/13/22 12:20:00 EDT, Tablet, [facility], Partial fill upon patient request if the prescription is for a schedule II opioid drug., 176, cm, 10/31/22 13:... Start Date: 12/13/22 Status: Ordered ergocalciferol 62739 iu oral capsule 50,000 International_Units, 1, capsule, By Mouth, Every week, # 13 capsule, Refills 0, Tot. Refills0, Maintenance, 09/22/22 9:24:00 EDT, Route to Pharmacy Electronically, [facility],Partial fill upon patient request if the prescripti... Start Date: 09/22/22 Stop Date: 12/21/22 Status: Ordered Eucerin Plus topical lotion 1 application, Topically, 2 times a day, PRN for dry skin, # 180 mL, 0 Refills, Maintenance, 08/26/22 17:33:00 EDT, Lotion, [facility], Partial fill upon patient request if the prescription is for a schedule II opioid drug., 1 applicat... Start Date: 08/26/22 Status: Ordered fluticasone 50 mcg/inh nasal spray 2 sprays = 100 mcg, Nares, Both, Daily in AM, # 16 Gm, 3 Refills, Maintenance, 08/25/22 18:32:00 EDT, Nasal [place], [facility], Partial fill upon patient request if [...] 08/26/22 16:04:00 EDT, Route to Pharmacy Electronically, [facility]., 176, cm, 08/17/22 14:18:00 EDT, Height Start [...] recombinant 500 units/mL subcutaneous solution See Instructions, INJECT SUBCUTANEOUSLY THREE TIMES DAILY 30 MINUTES BEFORE BREAKFAST, LUNCH, AND DINNER. UP TO 450 UNITS PER DAY, # 30 mL, 1 Refills, Maintenance, 12/28/23 20:28:00 EDT, [facility], 176, cm, 12/05/23 8:33:00 EDT, H... Start Date: 12/28/23 Status: Ordered Jardiance 25 mg oral tablet [...] tablet, 1 Refills, Maintenance, 10/17/22 16:21:00 EDT, [facility] 176, cm, 09/19/22 13:07:00 EDT, [...] 08/26/22 Stop Date: 09/02/22 Status: Ordered Pen [place], 31 G x 5 mm BD Ultra [...] Maintenance, 08/25/22 18:29:00 EDT, Aerosol, [facility] Partial fill upon patient request if the prescription is for a schedule II opioid drug., 176, cm, 08/17/22 14:18:00 EDT... Start Date: 08/25/22 Status: Ordered traZODone 150 mg oral tablet 1 tablet = 150 mg, By Mouth, Daily at bedtime, # 90 tablet, 0 Refills, Maintenance, 08/09/22 13:00:00 EDT, Tablet, [facility] Partial fill upon patient request [...] Gm, 0 Refills,Maintenance, 08/25/22 18:29:00 EDT, Inhaler, [facility]., Partial fill upon patient request if the prescription is for a schedule II opi... Start Date: 08/25/22 Status: Ordered Vitamin D3 50,000 intl units oral capsule 1 capsule = 1,250 mcg, By Mouth, Every 7 days, # 13 capsule, 0 Refills, Maintenance, 09/15/23 10:57:00 EDT, Capsule, [facility], Partial fill upon patient request if the prescription is for a schedule II opioid drug., 176, saqib, 09/05... Start Date: 09/15/23 Stop Date: 12/14/23 Status: Ordered ziprasidone 40 mg oral capsule 1 capsule = 40 mg, By Mouth, Daily in AM, # 90 each, 0 Refills, Maintenance, 08/09/22 13:01:00 EDT,Capsule, [facility]., Partial fill upon patient request if the prescription is for aschedule II opioid drug., 176, [place], 08/04/22 16:02:0... Start Date: 08/09/22 Status: Ordered ziprasidone 80 mg oral capsule 1 capsule = 80 mg, By Mouth, Daily at supper, # 90 each, 0 Refills, Maintenance, 08/09/22 13:01:00 EDT, [facility]., Partial fill upon patient request if the [...] 2016 2information and pathology of colonospcy in [facility] 09-09-2020 note 3per note - CT at outside location 4Completed a colonoscopy 2020 and had a cecum polyp. Biopsy tubular adenoma. repeat colonoscopy 7 years Social History Social History Type Response Smoking Status Never smoker entered on: 03/12/18 Sex Patient Care team information Care Team Personnel Name: José López MD, Katrin Ladd Position: [facility] Outreach Member Role: PCP Address: Address: [address] [place] [id number]- Care Team Related Persons Name: MARILU BOYD Address: [place] [address]
--- OUTSIDE RECORDS SUMMARY | 2024-03-29 14:11 | XMS_ITS | Continuity of Care Document ---
Author Organization [facility] ter Address [address] [place] [id number]- Care Team Providers Care Assistant Store Director Name Role Phone José López MD, Katrin Ladd Primary Care Jeffrey naik Encounter [facility] [place] Date(s): 02/21/24 - 03/22/[address] [address]- Attending Physician: Ani Atkinson Admitting Physician: AdmtrAni Referring Physician: Admtr, [id number] Encounter Type: Triage Allergies, Adverse Reactions, Alerts Substance Criticality Severity [...] Refills, Maintenance, 08/25/22 6:29:00 PM EDT, Aerosol, [facility], Partial fill upon patient [...] 6:25:00 PM EDT, Route to Pharmacy Electronically, [facility] [...] 6:25:00 PM EDT, Route to Pharmacy Electronically, [facility]., Partial fill upon patientrequest if the prescription is for a schedule II opioid drug., 176, cm, 08/17/22 14:18:00 EDT, Height Start Date: 08/25/22 Status: Ordered Quantity: 90.0 Unit: tablet Repeat number: 2 atorvastatin 80 mg oral tablet 1 tablet = 80 mg, By Mouth, Daily, # 90 tablet, 1 Refills, Maintenance, 08/25/22 6:25:00 PM EDT, Tablet, [facility]., Partial fill upon [...] 6:25:00 PM EDT, Route to Pharmacy Electronically, [facility], Partial fill upon [...] Refills, Soft Stop, 09/15/23 12:07:00 PM EDT, [facility], Partial fill upon patient request if the prescription is for a schedule II opioid drug., 176, cm, 09/15/23 10:10:00 EDT, Height Start Date: 09/15/23 Status: Ordered Quantity: 1.0 Unit: tablet Repeat number: 1 Indication: Hyperglycemia, unspecified DEXCOM G7 RECIEVER DEXCOM G7 RECIEVER, See Instructions, # 1 each, Refills 0, Tot. Refills 0, Maintenance, Dexcom G7 comb winder use as directed. e11.9, 09/14/22 10:15:00 AM [...] 100.0 Unit: g Repeat number: 1 ergocalciferol 81635 iu oral capsule 50,000 International_Units, 1, capsule, By Mouth, Every week, # 13 capsule, Refills 0, Tot. Refills0, Maintenance, 09/22/22 9:24:00 AM EDT, Route to Pharmacy Electronically, [facility], Partial fill upon [...] Refills, Maintenance, 08/26/22 5:33:00 PM EDT, Lotion, [facility], Partial [...] Refills, Maintenance, 08/25/22 6:32:00 PM EDT, Nasal [place], [facility], Partial fill upon [...] 4:04:00 PM EDT, Route to Pharmacy Electronically, [facility], 176, cm, 08/17/2313:18:00 EDT, Height Start Date: [...] Unit: tablet Repeat number: 1 HumuLIN R KwikPen (Concentrated) human recombinant 500 units/mL subcutaneous solution See Instructions, take 30 minute before each meal, max daily dose 800 unit daily, # 144 mL, 3 Refills, Maintenance, 02/16/24 1:51:00 PM EDT, [facility], 176, cm, 02/16/24 13:05:00EDT, Height [...] 11:45:00 AM EDT, Route to Pharmacy Electronically, [facility], Partial fill upon patientrequest if the prescription is for a schedule II opioid drug., 176, cm, 08/04/22 16:02:00 EDT, Height Start Date: 08/09/22 Status: Ordered Quantity: 90.0 Unit: tablet Repeat number: 1 losartan 50 mg oral tablet 1 tablet = 50 mg, By Mouth, Daily, # 90 tablet, 1 Refills, Maintenance, 10/17/22 4:21:00 PM EDT, [facility] 176, cm, 09/19/22 13:07:00 [...] 7.0 Unit: tablet Repeat number: 1 Pen [place], 31 G x 5 mm BD Ultra [...] Refills, Maintenance, 08/25/22 6:29:00 PM EDT, [facility] Partial fill upon patient request if the prescription is for a schedule II opioid drug., 176, cm, 08/17/22 14:18:00 EDT, Height Start Date: 08/25/22 Status: Ordered Quantity: 3.0 Unit: each Repeat number: 2 traZODone 150 mg oral tablet 1 tablet = 150 mg, By Mouth, Daily at bedtime, # 90 tablet, 0 Refills, Maintenance, 08/09/22 1:00:00 PM EDT, [facility] fill upon patient [...] 0 Refills,Maintenance, 08/25/22 6:29:00 PM EDT, Inhaler, [facility]., Partial fill upon patientrequest if the prescription is for a schedule II opioid drug., 176, cm, 08/17/22 14:18:00 EDT, Height Start Date: 08/25/22 Status: Ordered Quantity: 18.0 Unit: g Repeat number: 1 Vitamin D3 50,000 intl units oral capsule 1 capsule = 1,250 mcg, By Mouth, Every 7 days, # 13 capsule, 0 Refills, Maintenance, 09/15/23 10:57:00 AM EDT, Capsule, [facility], Partial fill upon patient request if the prescription is for a schedule II opioid drug., 176, cm, 09/15/23 10:10:00 EDT, Height Start Date: 09/15/23 Stop Date: 12/14/23 Status: Ordered Quantity: 13.0 Unit: capsule Repeat number: 1 ziprasidone 40 mg oral capsule 1 capsule = 40 mg, By Mouth, Daily in AM, # 90 each, 0 Refills, Maintenance, 08/09/22 1:01:00 PM EDT,Capsule, [facility]., Partial fill upon patient request if the prescription is for aschedule II opioid drug., 176, cm, 08/04/22 16:02:00 EDT, Height Start Date: 08/09/22 Status: Ordered Quantity: 90.0 Unit: each Repeat number: 1 ziprasidone 80 mg oral capsule 1 capsule = 80 mg, By Mouth, Daily at supper, # 90 each, 0 Refills, Maintenance, 08/09/22 1:01:00 PM EDT, [facility]., Partial fill upon patient request [...] Confirmed Active Vitamin D deficiency Confirmed Active [facility] pathology of [facility]ospcy in [facility] 09-09-2020 note 3per note - CT at outside location 4Completed a colonoscopy 2020 and had a cecum polyp. Biopsy tubular adenoma. repeat colonoscopy 7 years Social History Social History Type Response Smoking Status Never smoker entered on: 03/12/18 Sex Sex Representation Male (finding) Patient Care team information Care Team Personnel Name: José López MD, Katrin Ladd Position: [facility] Outreach Member Role: PCP Address: [address] [place] [address] Telecom: Care Team Related Persons Name: MARILU BOYD Insurance Providers Guarantor name: MADONNA MARKHAM Health Plan Information #: 1 Payer: [employer] Member Number: NA Policy Number: NA Group Number: [id number]
--- OUTSIDE RECORDS SUMMARY | 2024-03-29 14:11 | XMS_ITS | Continuity of Care Document ---
Author Organization [facility] Address [address] [place] [address]- Care Team Providers Care Children'S Literature Professor Name Role Phone José López MD, Katrin Ladd Primary Care Jeffrey naik [place] [facility] [place] 12/05/23 - 01/07/24 [facility] [address] [place] [id number] Attending Physician: Fiorella Ryder MD Admitting [...] 1 Refills, Maintenance, 08/25/22 18:29:00 EDT, [facility] fill upon patient request [...] 08/25/22 18:25:00 EDT, Route to Pharmacy Electronically, [facility]., Partial fill upon patientrequest if the prescription is for a schedule II op... Start Date: 08/25/22 Status: Ordered aspirin 81 mg oral delayed release tablet 81 mg, 1, tablet, By Mouth, Daily, # 90 tablet, Refills 1, Tot. Refills 1, Maintenance, 08/25/22 18:25:00 EDT, Route to Pharmacy Electronically, [facility]., Partial fill upon patient request if the prescription is for a schedule II opi... Start Date: 08/25/22 Status: Ordered atorvastatin 80 mg oral tablet 1 tablet = 80 mg, By Mouth, Daily, # 90 tablet, 1 Refills, Maintenance, 08/25/22 18:25:00 EDT, Tablet, [facility]., Partial fill upon patient request [...] 08/25/22 18:25:00 EDT, Route to Pharmacy Electronically, [facility]., Partial fill upon patient request [...] 0 Refills, Soft Stop, 09/15/23 12:07:00 EDT, [facility], Partial fill upon patient request if the prescription isfor a schedule II opioid drug., 176, cm, 09/15/23 1... Start Date: 09/15/23 Status: Ordered DEXCOM G7 RECIEVER DEXCOM G7 RECIEVER, See Instructions, # 1 each, Refills 0, Tot. Refills 0, Maintenance, Dexcom G7 drill bit sharpener use as directed. e11.9, 09/14/22 10:15:00 EDT, [...] 8 Refills, Maintenance, 12/13/22 12:20:00 EDT, Tablet, [facility], Partial fill upon patient request if the prescription is for a schedule II opioid drug., 176, cm, 10/31/22 13:... Start Date: 12/13/22 Status: Ordered ergocalciferol 09726 iu oral capsule 50,000 International_Units, 1, capsule, By Mouth, Every week, # 13 capsule, Refills 0, Tot. Refills0, Maintenance, 09/22/22 9:24:00 EDT, Route to Pharmacy Electronically, [facility],Partial fill upon patient request if the prescripti... Start Date: 09/22/22 Stop Date: 12/21/22 Status: Ordered Eucerin Plus topical lotion 1 application, Topically, 2 times a day, PRN for dry skin, # 180 mL, 0 Refills, Maintenance, 08/26/22 17:33:00 EDT, Lotion, [facility], Partial fill upon patient request if the prescription is for a schedule II opioid drug., 1 applicat... Start Date: 08/26/22 Status: Ordered fluticasone 50 mcg/inh nasal spray 2 sprays = 100 mcg, Nares, Both, Daily in AM, # 16 Gm, 3 Refills, Maintenance, 08/25/22 18:32:00 EDT, Nasal [place], [facility], Partial fill upon patient request if [...] 08/26/22 16:04:00 EDT, Route to Pharmacy Electronically, [facility] 176, cm, 08/17/22 14:18:00 EDT, Height [...] mL, 1 Refills, Maintenance, 12/28/23 20:28:00 EDT, [facility], 176, cm, 12/05/23 8:33:00 EDT, H... [...] tablet, 1 Refills, Maintenance, 10/17/22 16:21:00 EDT, [facility] 176, cm, 09/19/22 13:07:00 EDT, [...] 08/26/22 Stop Date: 09/02/22 Status: Ordered Pen [place], 31 G x 5 mm BD Ultra [...] 1 Refills, Maintenance, 08/25/22 18:29:00 EDT, Aerosol, [facility] Partial fill upon patient request if the prescription is for a schedule II opioid drug., 176, cm, 08/17/22 14:18:00 EDT... Start Date: 08/25/22 Status: Ordered traZODone 150 mg oral tablet 1 tablet = 150 mg, By Mouth, Daily at bedtime, # 90 tablet, 0 Refills, Maintenance, 08/09/22 13:00:00 EDT, Tablet, [facility] Partial fill upon patient request [...] 08/25/22 18:29:00 EDT, Inhaler, [facility] Partial fill upon patient request if the prescription is for a schedule II opi... Start Date: 08/25/22 Status: Ordered Vitamin D3 50,000 intl units oral capsule 1 capsule = 1,250 mcg, By Mouth, Every 7 days, # 13 capsule, 0 Refills, Maintenance, 09/15/23 10:57:00 EDT, Capsule, [facility], Partial fill upon patient request if the prescription is for a schedule II opioid drug., saqib Jean, 09/05... Start Date: 09/15/23 Stop Date: 12/14/23 Status: Ordered ziprasidone 40 mg oral capsule 1 capsule = 40 mg, By Mouth, Daily in AM, # 90 each, 0 Refills, Maintenance, 08/09/22 13:01:00 EDT,Capsule, [facility]., Partial fill upon patient request if the prescription is for aschedule II opioid drug., saqib Jean, 08/04/22 16:02:0... Start Date: 08/09/22 Status: Ordered ziprasidone 80 mg oral capsule 1 capsule = 80 mg, By Mouth, Daily at supper, # 90 each, 0 Refills, Maintenance, 08/09/22 13:01:00 EDT, [facility]., Partial fill upon patient request [...] team information Care Team Personnel Name: José Lpóez MD, Katrin Ladd Position: [facility] Outreach Member Role: PCP Address: Address: [address] [place] [id number]- Care Team Related Persons Name: MARILU BOYD Address: [place] [address]
--- OUTSIDE RECORDS SUMMARY | 2024-03-29 14:11 | XMS_ITS | Continuity of Care Document ---
Author Organization [facility] Address [address] [place] [address]- Care Team Providers Care Chiller Technician Name Role Phone José López MD, Katrin Ladd Primary Care Jeffrey naik Encounter [facility] [place] Date(s): 12/27/23 - 01/26/24 [facility] [address] [place] [id number] Allergies, Adverse Reactions, Alerts Substance [...] Refills, Maintenance, 08/25/22 18:29:00 EDT, Aerosol, [facility], Partial fill upon patient request [...] Route to Pharmacy Electronically, [facility], Partial fill upon patientrequest if the prescription is for a schedule II op... Start Date: 08/25/22 Status: Ordered aspirin 81 mg oral delayed release tablet 81 mg, 1, tablet, By Mouth, Daily, # 90 tablet, Refills 1, Tot. Refills 1, Maintenance, 08/25/22 18:25:00 EDT, Route to Pharmacy Electronically, [facility], Partial fill upon patient request if the prescription is for a schedule II opi... Start Date: 08/25/22 Status: Ordered atorvastatin 80 mg oral tablet 1 tablet = 80 mg, By Mouth, Daily, # 90 tablet, 1 Refills, Maintenance, 08/25/22 18:25:00 EDT, Tablet, [facility], Partial fill upon patient request if [...] Route to Pharmacy Electronically, [facility], Partial fill upon patient request if [...] 0 Refills, Soft Stop, 09/15/23 12:07:00 EDT, [facility], Partial fill upon patient request if the prescription isfor a schedule II opioid drug., 176, cm, 09/15/23 1... Start Date: 09/15/23 Status: Ordered DEXCOM G7 RECIEVER DEXCOM G7 RECIEVER, See Instructions, # 1 each, Refills 0, Tot. Refills 0, Maintenance, Dexcom G7 head holder use as directed. e11.9, 09/14/22 10:15:00 EDT, [...] 8 Refills, Maintenance, 12/13/22 12:20:00 EDT, Tablet, [facility], Partial fill upon patient request if the prescription is for a schedule II opioid drug., 176, cm, 10/31/22 13:... Start Date: 12/13/22 Status: Ordered ergocalciferol 29168 iu oral capsule 50,000 International_Units, 1, capsule, By Mouth, Every week, # 13 capsule, Refills 0, Tot. Refills0, Maintenance, 09/22/22 9:24:00 EDT, Route to Pharmacy Electronically, [facility],Partial fill upon patient request if the prescripti... Start Date: 09/22/22 Stop Date: 12/21/22 Status: Ordered Eucerin Plus topical lotion 1 application, Topically, 2 times a day, PRN for dry skin, # 180 mL, 0 Refills, Maintenance, 08/26/22 17:33:00 EDT, Lotion, [facility], Partial fill upon patient request if the prescription is for a schedule II opioid drug., 1 applicat... Start Date: 08/26/22 Status: Ordered fluticasone 50 mcg/inh nasal spray 2 sprays = 100 mcg, Nares, Both, Daily in AM, # 16 Gm, 3 Refills, Maintenance, 08/25/22 18:32:00 EDT, Nasal [place], [facility], Partial fill upon patient request if [...] 16:04:00 EDT, Route to Pharmacy Electronically, [facility] 176, cm, 08/17/22 14:18:00 EDT, Height Start [...] mL, 1 Refills, Maintenance, 12/28/23 20:28:00 EDT, [facility], 176, cm, 12/05/23 8:33:00 EDT, H... [...] 08/09/22 11:45:00 EDT, Route to Pharmacy Electronically, [facility], Partial fill upon patient request if the prescription is for a schedule II opi... Start Date: 08/09/22 Status: Ordered losartan 50 mg oral tablet 1 tablet = 50 mg, By Mouth, Daily, # 90 tablet, 1 Refills, Maintenance, 10/17/22 16:21:00 EDT[facility] 176, cm, 09/19/22 13:07:00 EDT, Height [...] 08/26/22 Stop Date: 09/02/22 Status: Ordered Pen [place], 31 G x 5 mm BD Ultra [...] Refills, Maintenance, 08/25/22 18:29:00 EDT, Aerosol, [facility] Partial fill upon patient request if the prescription is for a schedule II opioid drug., 176, cm, 08/17/22 14:18:00 EDT... Start Date: 08/25/22 Status: Ordered traZODone 150 mg oral tablet 1 tablet = 150 mg, By Mouth, Daily at bedtime, # 90 tablet, 0 Refills, Maintenance, 08/09/22 13:00:00 EDT, Tablet, [facility] Partial fill upon patient request [...] Gm, 0 Refills,Maintenance, 08/25/22 18:29:00 EDT, [facility]haler, [facility] Partial fill upon patient request if the prescription is for a schedule II opi... Start Date: 08/25/22 Status: Ordered Vitamin D3 50,000 intl units oral capsule 1 capsule = 1,250 mcg, By Mouth, Every 7 days, # 13 capsule, 0 Refills, Maintenance, 09/15/23 10:57:00 EDT, Capsule, [facility], Partial fill upon patient request if the prescription is for a schedule II opioid drug., 176, cm, 09/05... Start Date: 09/15/23 Stop Date: 12/14/23 Status: Ordered ziprasidone 40 mg oral capsule 1 capsule = 40 mg, By Mouth, Daily in AM, # 90 each, 0 Refills, Maintenance, 08/09/22 13:01:00 EDT,Capsule, [facility]., Partial fill upon patient request if the prescription is for aschedule II opioid drug., 176, cm, 08/04/22 16:02:0... Start Date: 08/09/22 Status: Ordered ziprasidone 80 mg oral capsule 1 capsule = 80 mg, By Mouth, Daily at supper, # 90 each, 0 Refills, Maintenance, 08/09/22 13:01:00 EDT, [facility]., Partial fill upon patient request if [...] 2information and pathology of colonospcy in [facility] 09-09-2020 note 3per note - CT at outside location 4Completed a colonoscopy 2020 and had a cecum polyp. Biopsy tubular adenoma. repeat colonoscopy 7 years Social History Social History Type Response Smoking Status Never smoker entered on: 03/12/18 Sex Patient Care team information Care Team Personnel Name: José López MD, Katrin Ladd Position: [facility] Outreach Member Role: PCP Address: Address: [address] [place] [id number]- Care Team Related Persons Name: MARILU BOYD Address: [place] [address]
--- OUTSIDE RECORDS SUMMARY | 2024-03-29 14:12 | XMS_ITS | Continuity of Care Document ---
Author Organization [facility] Address [address] [place] [address]- Care Team Providers Care Military Professional Name Role Phone José López MD, Katrin Ladd Primary Care Jeffrey naik En[place] [facility] [place] Date(s): 02/01/24 - 03/02/24 [facility] [address] [place] [id number] Allergies, Adverse Reactions, Alerts Substance Reaction Severity [...] 1 Refills, Maintenance, 08/25/22 18:29:00 EDT, Aerosol, [facility], Partial fill upon patient [...] 08/25/22 18:25:00 EDT, Route to Pharmacy Electronically, [facility], Partial fill upon patient request if the prescription is for a schedule II opi... Start Date: 08/25/22 Status: Ordered atorvastatin 80 mg oral tablet 1 tablet = 80 mg, By Mouth, Daily, # 90 tablet, 1 Refills, Maintenance, 08/25/22 18:25:00 EDT, Tablet, [facility], Partial fill upon patient request if [...] 08/25/22 18:25:00 EDT, Route to Pharmacy Electronically, [facility], Partial fill upon patient request if [...] 0 Refills, Soft Stop, 09/15/23 12:07:00 EDT, [facility], Partial fill upon patient request if the prescription isfor a schedule II opioid drug., 176, cm, 09/15/23 1... Start Date: 09/15/23 Status: Ordered DEXCOM G7 RECIEVER DEXCOM G7 RECIEVER, See Instructions, # 1 each, Refills 0, Tot. Refills 0, Maintenance, Dexcom G7 curriculum development specialist use as directed. e11.9, 09/14/22 10:15:00 EDT, Compound, 176, cm, 09/14/22 9:47:00 EDT, Height Start Date: 09/14/22 Status: Ordered Dexcom G7 Sensor Dexcom G7 Sensor, See Instructions, # 10 each, Refills 3, Tot. Refills 3, Maintenance, Apply DexcomG7 sensor Every 10 days. e11.9, 02/16/24 13:53:00 EDT, Supply, 176, cm, 02/16/24 13:05:00 EDT, Height Start Date: 02/16/24 Status: Ordered diclofenac 1% topical gel 1 application, Topically, 4 times a day, # 100 Gm, 0 Refills, Maintenance, 08/09/22 13:22:00 EDT, Gel, Partial fill upon patient request if the prescription is for a schedule II opioid drug. Start Date: 08/09/22 Status: Ordered ergocalciferol 39071 iu oral capsule 50,000 International_Units, 1, capsule, By Mouth, Every week, # 13 capsule, Refills 0, Tot. Refills0, Maintenance, 09/22/22 9:24:00 EDT, Route to Pharmacy Electronically, [facility],Partial fill upon patient request if the prescripti... Start Date: 09/22/22 Stop Date: 12/21/22 Status: Ordered Eucerin Plus topical lotion 1 application, Topically, 2 times a day, PRN for dry skin, # 180 mL, 0 Refills, Maintenance, 08/26/22 17:33:00 EDT, Lotion, [facility]., Partial fill upon patient request if the prescription is for a schedule II opioid drug., 1 applicat... Start Date: 08/26/22 Status: Ordered fluticasone 50 mcg/inh nasal spray 2 sprays = 100 mcg, Nares, Both, Daily in AM, # 16 Gm, 3 Refills, Maintenance, 08/25/22 18:32:00 EDT, Nasal [place], [facility]., Partial fill upon patient request if [...] 08/26/22 16:04:00 EDT, Route to Pharmacy Electronically, [facility] 176, cm, 08/17/22 14:18:00 EDT, Height [...] # 144 mL, 3 Refills, Maintenance, 02/16/24 13:51:00 EDT, [facility], 176, cm, 02/16/24 13:05:00 EDT, Height Start Date: 02/16/24 Status: Ordered lidocaine 5% topical film 1 [...] 08/09/22 11:45:00 EDT, Route to Pharmacy Electronically, [facility], Partial fill upon patient request if the prescription is for a schedule II opi... Start Date: 08/09/22 Status: Ordered losartan 50 mg oral tablet 1 tablet = 50 mg, By Mouth, Daily, # 90 tablet, 1 Refills, Maintenance, 10/17/22 16:21:00 EDT, [facility], 176, cm, 09/19/22 13:07:00 EDT, Height [...] 08/26/22 Stop Date: 09/02/22 Status: Ordered Pen [place], 31 G x 5 mm BD Ultra [...] Refills, Maintenance, 08/25/22 18:29:00 EDT, Aerosol, [facility]., Partial fill upon patient request if the prescription is for a schedule II opioid drug., 176, cm, 08/17/22 14:18:00 EDT... Start Date: 08/25/22 Status: Ordered traZODone 150 mg oral tablet 1 tablet = 150 mg, By Mouth, Daily at bedtime, # 90 tablet, 0 Refills, Maintenance, 08/09/22 13:00:00 EDT, Tablet, [facility] Partial fill upon patient [...] Gm, 0 Refills,Maintenance, 08/25/22 18:29:00 EDT, Inhaler, [facility]., Partial fill upon patient request if the prescription is for a schedule II opi... Start Date: 08/25/22 Status: Ordered Vitamin D3 50,000 intl units oral capsule 1 capsule = 1,250 mcg, By Mouth, Every 7 days, # 13 capsule, 0 Refills, Maintenance, 09/15/23 10:57:00 EDT, Capsule, [facility], Partial fill upon patient request if the prescription is for a schedule II opioid drug., 176, cm, 09/05... Start Date: 09/15/23 Stop Date: 12/14/23 Status: Ordered ziprasidone 40 mg oral capsule 1 capsule = 40 mg, By Mouth, Daily in AM, # 90 each, 0 Refills, Maintenance, 08/09/22 13:01:00 EDT,Capsule, [facility]., Partial fill upon patient request if the prescription is for aschedule II opioid drug., 176, cm, 08/04/22 16:02:0... Start Date: 08/09/22 Status: Ordered ziprasidone 80 mg oral capsule 1 capsule = 80 mg, By Mouth, Daily at supper, # 90 each, 0 Refills, Maintenance, 08/09/22 13:01:00 EDT, [facility]., Partial fill upon patient request if [...] 2information and pathology of colonospcy in [facility] 09-09-2020 note 3per note - CT at outside location 4Completed a colonoscopy 2020 and had a cecum polyp. Biopsy tubular adenoma. repeat colonoscopy 7 years Social History Social History Type Response Smoking Status Never smoker entered on: 03/12/18 Sex Patient Care team information Care Team Personnel Name: José López MD, Katrin Ladd Position: [facility] Outreach Member Role: PCP Address: Address: [address] [place] [address]- Care Team Related Persons Name: MARILU BOYD Address: [place] [address]
--- OUTSIDE RECORDS SUMMARY | 2024-03-29 14:12 | XMS_ITS | Continuity of Care Document ---
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 Start Date: 08/25/22 Status: Ordered aspirin 81 mg oral delayed release tablet 81 mg, 1, tablet, By Mouth, Daily, # 90 tablet, Refills 1, Tot. Refills 1, Maintenance, 08/25/22 18:25:00 EDT, Route to Pharmacy Electronically, [facility]., Partial fill upon patient request if the prescription is for a schedule II opi... Start Date: 08/25/22 Status: Ordered atorvastatin 80 mg oral tablet 1 tablet = 80 mg, By Mouth, Daily, # 90 tablet, 1 Refills, Maintenance, 08/25/22 18:25:00 EDT, Tablet, [facility]., Partial fill upon patient request if [...] 08/25/22 18:25:00 EDT, Route to Pharmacy Electronically, [facility]., Partial fill upon patient request if [...] 0, Tot. Refills 0, Maintenance, Dexcom G7 mainspring former arbor end use as directed. e11.9, 09/14/22 10:15:00 EDT, [...] drug. Start Date: 08/09/22 Status: Ordered ergocalciferol 48579 iu oral capsule 50,000 International_Units, 1, capsule, By Mouth, Every week, # 13 capsule, Refills 0, Tot. Refills0, Maintenance, 09/22/22 9:24:00 EDT, Route to Pharmacy Electronically, [facility],Partial fill upon patient request if the prescripti... Start Date: 09/22/22 Stop Date: 12/21/22 Status: Ordered Eucerin Plus topical lotion 1 application, Topically, 2 times a day, PRN for dry skin, # 180 mL, 0 Refills, Maintenance, 08/26/22 17:33:00 EDT, Lotion, [facility], Partial fill upon patient request if the prescription is for a schedule II opioid drug., 1 applicat... Start Date: 08/26/22 Status: Ordered fluticasone 50 mcg/inh nasal spray 2 sprays = 100 mcg, Nares, Both, Daily in AM, # 16 Gm, 3 Refills, Maintenance, 08/25/22 18:32:00 EDT, Nasal [place], [facility], Partial fill upon patient request if [...] 16:04:00 EDT, Route to Pharmacy Electronically, [facility], 176, cm, 08/17/22 14:18:00 EDT, Height [...] mL, 3 Refills, Maintenance, 02/16/24 13:51:00 EDT, [facility], 176, cm, 02/16/24 13:05:00 EDT, [...] 11:45:00 EDT, Route to Pharmacy Electronically, [facility], Partial fill upon patient request if the prescription is for a schedule II opi... Start Date: 08/09/22 Status: Ordered losartan 50 mg oral tablet 1 tablet = 50 mg, By Mouth, Daily, # 90 tablet, 1 Refills, Maintenance, 10/17/22 16:21:00 EDT, [facility], 176, cm, 09/19/22 13:07:00 EDT, Height [...] 08/26/22 Stop Date: 09/02/22 Status: Ordered Pen [place], 31 G x 5 mm BD Ultra [...] 1 Refills, Maintenance, 08/25/22 18:29:00 EDT, Aerosol, [facility]., Partial fill upon patient request if the prescription is for a schedule II opioid drug., 176, cm, 08/17/22 14:18:00 EDT... Start Date: 08/25/22 Status: Ordered traZODone 150 mg oral tablet 1 tablet = 150 mg, By Mouth, Daily at bedtime, # 90 tablet, 0 Refills, Maintenance, 08/09/22 13:00:00 EDT, Tablet, [facility] Partial fill upon patient request [...] Gm, 0 Refills,Maintenance, 08/25/22 18:29:00 EDT, Inhaler, [facility] Partial fill upon patient request [...] each, 0 Refills, Maintenance, 08/09/22 13:01:00 EDT,Capsule, [facility]., Partial fill upon patient request if the prescription is for aschedule II opioid drug., 176, saqib, 08/04/22 16:02:0... Start Date: 08/09/22 Status: Ordered ziprasidone 80 mg oral capsule 1 capsule = 80 mg, By Mouth, Daily at supper, # 90 each, 0 Refills, Maintenance, 08/09/22 13:01:00 EDT, [facility]., Partial fill upon patient request if [...] 2016 2information and pathology of colonospcy in [facility] 09-09-2020 note 3per note - CT at outside location 4Completed a colonoscopy 2020 and had a cecum polyp. Biopsy tubular adenoma. repeat colonoscopy 7 years Social History Social History Type Response Smoking Status Never smoker entered on: 03/12/18 Sex Patient Care team information Care Team Personnel Name: José López MD, Katrin Ladd Position: [facility] Outreach Member Role: PCP Address: Address: [address] [place] [id number]- Care Team Related Persons Name: MARILU BOYD Address: [place] [address]
== END 2024-03-27 14:55 | disposition home or self-care (01) ==
LOC: HO.HKA 13:47
PROVIDERS: PCP Student in an Organized Health Care Education/Training Program; Visit Provider Nurse Practitioner Family
DX: I12.9 Hypertensive chronic kidney disease with stage 1 through stage 4 chronic kidney disease, or unspecified chronic kidney disease (principal); E11.22 Type 2 diabetes mellitus with diabetic chronic kidney disease; N18.32 Chronic kidney disease, stage 3b; R80.1 Persistent proteinuria, unspecified; Z79.4 Long term (current) use of insulin; D63.1 Anemia in chronic kidney disease
CPT/HCPCS: 99214

== ENCOUNTER 2024-04-03 11:23 | Outpatient (REF) | payer MEDICAID, SELFPAY ==
--- NOTE | ~2024-04-03 | XR_ITS ---
EXAMINATION: XR CHEST 2 VIEWS CLINICAL INFORMATION: Follow-up pneumonia. COMPARISON: Prior chest radiographs, most recently 04/06/2024. TECHNIQUE: Frontal and lateral views of the chest were obtained. FINDINGS: The heart, great vessels, pulmonary vasculature and mediastinum are normal. There is interim improvement in patchy right upper and lower lobe airspace disease, without full resolution. No pleural effusion or pneumothorax is seen. There is no acute osseous abnormality. XR/XR chest 2V IMPRESSION: Improved patchy right lung infiltrates are seen, without full resolution. Electronically signed by: Blake Magana MD 04/04/2024 11:02 AM BRYON
== END 2024-04-03 11:24 | disposition home or self-care (01) ==
LOC: HO.HHCX 11:23
PROVIDERS: Visit Provider Registered Nurse
DX: J18.9 Pneumonia, unspecified organism (principal)
CPT/HCPCS: 71046

== ENCOUNTER 2024-04-03 11:49 | Outpatient (REF) | payer MEDICAID, SELFPAY ==
[2024-04-03 13:34] LABS: Anion Gap 14 (12-20); Blood Urea Nitrogen 40 mg/dL (9-16); Calcium 9.3 mg/dL (8.4-10.2); Carbon Dioxide 25 mmol/L (22-29); Chloride 107 mmol/L (96-108); Estimated Glomerular Filt Rate 22; Glucose Random 163 mg/dL (60-115); Potassium 4.8 mmol/L (3.3-5.1); Sodium 141 mmol/L (135-145)
[2024-04-03 13:49] LABS: Creatinine Urine 80.68 mg/dL
== END 2024-04-03 11:50 | disposition home or self-care (01) ==
LOC: HO.HHCL 11:49
PROVIDERS: Nurse Practitioner Family; Visit Provider Student in an Organized Health Care Education/Training Program
DX: D64.9 Anemia, unspecified (principal); R80.9 Proteinuria, unspecified; N18.32 Chronic kidney disease, stage 3b; E11.9 Type 2 diabetes mellitus without complications
CPT/HCPCS: 36415; 80048; 82570

== ENCOUNTER 2024-04-10 10:30 | Outpatient (REF) | payer MEDICAID, SELFPAY ==
[2024-04-10 12:55] LABS: Anion Gap 10 (12-20); Blood Urea Nitrogen 35 mg/dL (9-16); Calcium 9.2 mg/dL (8.4-10.2); Carbon Dioxide 28 mmol/L (22-29); Chloride 107 mmol/L (96-108); Estimated Glomerular Filt Rate 22; Glucose Random 288 mg/dL (60-115); Potassium 4.9 mmol/L (3.3-5.1); Sodium 140 mmol/L (135-145)
== END 2024-04-10 10:31 | disposition home or self-care (01) ==
LOC: HO.LAB 10:30
PROVIDERS: PCP Student in an Organized Health Care Education/Training Program; Visit Provider Nurse Practitioner Family
DX: N18.32 Chronic kidney disease, stage 3b (principal); E11.29 Type 2 diabetes mellitus with other diabetic kidney complication; Z79.4 Long term (current) use of insulin; R80.1 Persistent proteinuria, unspecified; D64.9 Anemia, unspecified; I10 Essential (primary) hypertension; N17.9 Acute kidney failure, unspecified
CPT/HCPCS: 36415; 80048; 99212

== ENCOUNTER 2024-04-10 10:30 | Outpatient (AMB) | payer MEDICAID, SELFPAY ==
--- NOTE | 2024-04-10 08:57 | HO.NEPHOV ---
Vital Signs 04/10/24 10:35 Height 5 ft 9 in Weight 246 lb 8 oz BMI 36.4 BP 124/74 Blood Pressure Location Rt brachial Position Sitting Pulse 91 Pulse Source Pulse Oximeter Pulse Oximetry (%) 93 Oxygen Delivery Method Room Air Intake Visit Reasons: 2 weeks fu/ Vm not setup Application Dba Required: Yes Application Dba Language: Staffing Specialist Services: Application Dba Offered & Declined ([facility] Application Dba services refused. ) Application Dba Name: Elizabeth-Friend Accompanied by: Spouse Allergies Penicillins [PENICILLINS] Allergy (Intermediate, Verified 04/10/24 10:36) RASH, DIFFICULTY BREATHING HPI Comments Details: Darrel is a 53 y/o male with a medical history of longstanding DMII, REGI, HTN, HLD, CVA with hemiparesis (reports in 2019), DMII, REGI, gout, GERD, rheumatoid arthritis and CKD3b. Pt is on 2L supplemental O2 by MS, working through [facility] pulmonology, recent PFTs suggested possible pulmonary parenchymal disease. PCP: Dr Katrin López at [facility] Here for 2 week return never smoker no alcohol denies other drug use outside of prescribed medication Lives at home with family, not working due to chronic pain for many years per pt last creatinine prior to Mar hospitalization 11/07/23 was 2.23; hospitalized mid Mar 2024 and had NICOLAS, creatinine 3.35, trended down to 2.91 was discharged on 80mg lasix PO daily, also was taking olmesartan 40mg daily per pharmacy (pt reported losartan) after last visit 03/27, pt had lab work re-checked, creatinine increased to 3.95- pt was advised to continue to hold/stop olmesartan (and losartan if taking on currently, he is not sure) completely, and continue to take lasix 40mg PO daily as prescribed (cut dose in half) 1 week re-check creatinine 3.00, will re-check again today to ensure improvement continues pt states he thinks he sees a lockstitcher in [place] but he is not sure who he sees- no records on file echo in Apr 2023 with normal LV EF with mild LVH and impaired relaxation pattern. patient has elevated urine protein/creatinine ratio of ~14 04/03 elevated urine microalbumin/creatinine ratio of 3,033 renal ultrasound from 03/25 unremarkable- bilateral pelviectasis without trevor hydronephrosis. 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 He is not sure which abx he is taking no difficulty urinating, states frequency after he takes his lasix denies flank pain reports continued chronic joint pain, unchanged reports his swelling in his legs has gone down since his last visit [facility] Medical History (Updated 04/10/24 @ 11:15 by Carito Roche, DNP, RADIOLOGY PHYSICIAN ASSISTANT-BC) HTN (hypertension) Leukocytosis Memory loss Obesity Idiopathic gout of multiple sites GERD (gastroesophageal reflux disease) Hypertensive chronic kidney disease Secondary hyperparathyroidism, renal Sleep apnea Type 2 diabetes mellitus Schizoaffective disorder Chronic pain syndrome Diabetic polyneuropathy Gout Surgical History History of esophagogastroduodenoscopy (EGD) H/O colonoscopy Family History Father Cancer Diabetes Mother Cancer Diabetes Colon cancer Family/Other Cancer Diabetes Social History Household Members: Spouse Housing: House Do you presently have visiting nurse or other home services: Yes Alcohol intake: never Patient Tobacco Use Status: Never used Tobacco service: No Review of Systems Const Denies headache(s), Denies malaise and Denies weakness ENT Denies dizziness and Denies headache(s) Card Denies chest pain, Reports leg edema (reports improving), Denies lightheadedness and Reports dyspnea on exertion Resp Denies cough and Reports dyspnea on exertion GI Denies abdominal pain, Denies constipation, Denies diarrhea, Denies nausea and Denies vomiting Denies hematuria, Denies oliguria, Denies difficulty urinating, Denies dysuria and Denies urinary incontinence Skin/Breast Denies rash Neuro Denies dizziness, Denies headache(s) and Denies weakness Physical Exam Vital Signs: Last Vital Signs Pulse 91 04/10/24 10:35 BP 124/74 04/10/24 10:35 Pulse Ox 93 04/10/24 10:35 Oxygen Delivery Method Room Air 04/10/24 10:35 BMI result Body Mass Index 36.4 Const General: no acute distress, alert and awake Resp Effort & Inspection: normal respiratory effort and able to speak in complete sentences Auscultation: crackles (posterior middle lobes), rhonchi and wheezes (expiratory wheezes posterior middle lobes) Cardio Jugular venous distension: no JVD Rate: regular rate Rhythm: regular rhythm Heart sounds: S1 normal heart sound present and S2 normal heart sound present GI Palpation (GI): Soft to palpation and nontender General: Yes no CVA tenderness Back/Spine/Pelvis Back: no CVA tenderness Skin Lesions: no lesions Rashes: no rashes Extrem Right upper extremity: edema (+1 BLE pitting edema ) Results Reviewed Nephrology Results: Hgb 12.7 g/dl (14.0-18.0) L 03/27/24 WBC 12.3 X10*3/uL (4.8-10.8) H 03/27/24 Plt Count 402 X10*3/uL (160-400) H 03/27/24 Sodium 141 mmol/L (135-145) 04/03/24 Potassium 4.8 mmol/L (3.3-5.1) 04/03/24 Chloride 107 mmol/L (96-108) 04/03/24 Carbon Dioxide 25 mmol/L (22-29) 04/03/24 BUN 40 mg/dL (9-16) H 04/03/24 Creatinine 3.00 mg/dL (0.5-1.4) H 04/03/24 Calcium 9.3 mg/dL (8.4-10.2) 04/03/24 Phosphorus 4.0 mg/dL (2.7-4.5) 03/27/24 PTH Intact 498.5 pg/mL (8.7-77.1) H 03/27/24 Urine Protein >=1000 (4+) mg/dL (Neg-Trace) H 03/25/24 Urine Creatinine 80.68 mg/dL 04/03/24 Renal US 03/25/24 Assessment & Plan Assessment & Plan (1) Type 2 diabetes mellitus: Code(s): E11.9 - Type 2 diabetes mellitus without complications Category: Medical Qualifiers: Diabetes mellitus residential insulin use: with carding supervisor use Diabetes mellitus complication status: with kidney complications Diabetes mellitus complication detail: with diabetic microalbuminuria Qualified Code(s): E11.29 - Type 2 diabetes mellitus with other diabetic kidney complication; R80.9 - Proteinuria, unspecified; Z79.4 - gear straightener (current) use of insulin (2) CKD (chronic kidney disease): Code(s): N18.9 - Chronic kidney disease, unspecified Category: Medical Qualifiers: Chronic kidney disease stage: stage 3 (moderate) Chronic kidney disease stage 3 subtype: stage 3b (GFR 30-44) Qualified Code(s): N18.32 - Chronic kidney disease, stage 3b (3) Proteinuria: Code(s): R80.9 - Proteinuria, unspecified Category: Medical Qualifiers: Proteinuria type: persistent Qualified Code(s): R80.1 - Persistent proteinuria, unspecified (4) Anemia: Code(s): D64.9 - Anemia, unspecified Category: Medical Qualifiers: Anemia type: unspecified type Qualified Code(s): D64.9 - Anemia, unspecified (5) HTN (hypertension): Code(s): I10 - Essential (primary) hypertension Category: Medical Qualifiers: Hypertension type: primary hypertension Qualified Code(s): I10 - Essential (primary) hypertension (6) Acute kidney injury: Code(s): N17.9 - Acute kidney failure, unspecified Category: Medical Plan Baseline CKD3b with nephrotic-range proteinuria, NICOLAS secondary to hypoperfusion in setting of diuretic and ARB use creatinine has improved (though remains elevated) will discontinuation of ARB and reducing furosemide by half CKD- most likely diabetic nephropathy, though differentials also include membranous nephropathy, minimal change disease, amyloidosis, FSGS given persistent nephrotic-range proteinuria and long-standing CKD, along with abnormal serum immunofixation, will get renal biopsy- will request follow up to schedule as pt reports he has not heard about an appt yet NICOLAS - improving will re-check BMP today to ensure creatinine continues to trend downward likely secondary to hypoperfusion from low blood pressure in setting of ARB and high-dose diuretic he will continue to hold ARB and take 40mg lasix daily Secondary hyperparathyroidism, vitamin D deficiency and CKD pt reports he is taking vitamin D as prescribed- will increase to 5,000iu daily (currently prescribed 2000iu daily per chart) pt is not clear on which medications he is prescribed today, did not bring in home medications advised please bring to next appointment, or take pictures of bottle labels that he is taking, or write down names, doses, frequency and bring in list called pharmacy today and sent in signed consent so we have prescriptions that have been filled at his pharmacy blood work today he will follow up in the office in two weeks advised patient to please bring all of his medications in so we can have an accurate medication list on file he will call in the mean time with questions, concerns Orders: Orders Basic Metabolic Panel Today N18.30 - Chronic kidney disease, stage 3 unspecified Medications: New cholecalciferol (vitamin D3) 125 mcg (2.5 x 50 mcg (2,000 unit)) PO DAILY 30 tabs 3RF E55.9 - Vitamin D deficiency, unspecified, N25.81 - Secondary hyperparathyroidism of renal origin Coding Level of Care Code Est Pt Level 4 (28668) Diagnoses Type 2 diabetes mellitus with diabetic microalbuminuria, with long-term current use of insulin E11.29; R80.9; Z79.4 Diabetes mellitus carding supervisor insulin use: with residential use Diabetes mellitus complication status: with kidney complications Diabetes mellitus complication detail: with diabetic microalbuminuria Stage 3b chronic kidney disease N18.32 Chronic kidney disease stage: stage 3 (moderate) Chronic kidney disease stage 3 subtype: stage 3b (GFR 30-44) Persistent proteinuria R80.1 Proteinuria type: persistent Anemia, unspecified type D64.9 Anemia type: unspecified type Primary hypertension I10 Hypertension type: primary hypertension Acute kidney injury N17.9 Time Spent (min) 39 Comment Time spent assessing, counseling, documentation, chart review: 39 minutes.
[2024-04-10 10:35] VITALS: BP 124/74; PULSE 91; O2SAT 93; BMI 36.4
== END 2024-04-10 11:14 | disposition home or self-care (01) ==
PROVIDERS: PCP Student in an Organized Health Care Education/Training Program; Visit Provider Nurse Practitioner Family
DX: I12.9 Hypertensive chronic kidney disease with stage 1 through stage 4 chronic kidney disease, or unspecified chronic kidney disease (principal); E11.22 Type 2 diabetes mellitus with diabetic chronic kidney disease; N18.32 Chronic kidney disease, stage 3b; R80.9 Proteinuria, unspecified; Z79.4 Long term (current) use of insulin; R80.1 Persistent proteinuria, unspecified; D64.9 Anemia, unspecified; N17.9 Acute kidney failure, unspecified
CPT/HCPCS: 99214

== ENCOUNTER 2024-04-24 10:30 | Outpatient (AMB) | payer MEDICAID, SELFPAY ==
--- NOTE | 2024-04-24 10:20 | HO.NEPHOV_ITS ---
Vital Signs 04/24/24 10:45 Height 5 ft 9 in Weight 260 lb BMI 38.4 BP 110/70 Blood Pressure Location Lt brachial Position Sitting Pulse 94 Pulse Source Pulse Oximeter Pulse Oximetry (%) 96 Oxygen Delivery Method Room Air Intake Visit Reasons: Anemia Anatomy Professor Required: Yes Anatomy Professor Language: Test Pilot Services: Anatomy Professor Offered & Declined ([facility] ticket collector services refused ) Accompanied by: Spouse Allergies Penicillins [PENICILLINS] Allergy (Intermediate, Verified 04/24/24 10:44) RASH, DIFFICULTY BREATHING Medication List - Last Reconciled 04/24/24 by Carito Roche, DNP, OPEN HEARTH STOCKYARD SUPERVISOR-BC acetaminophen 1,000 mg PO Q6H PRN albuterol sulfate 2.5 mg inhalation Q6H PRN ammonium lactate 12% 1 appl topical DAILY aspirin 1 tab PO DAILY atorvastatin 80 mg PO DAILY blood-glucose meter,continuous (Dexcom G7 Leadership Recruiter) As directed blood-glucose sensor (Dexcom G7 Sensor device) As directed calcium carbonate (Calcium Antacid) 400 mg PO DAILY carboxymethylcellulose sodium 0.5% (Lubricant Eye Drops) 1 drp ophthalmic (eye) NEEDED carvedilol 25 mg PO BID cholecalciferol (vitamin D3) 125 mcg (2.5 x 50 mcg (2,000 unit)) PO DAILY cholecalciferol (vitamin D3) 1,250 mcg PO QWEEK clonazepam 0.5 mg PO TID divalproex ER (Depakote ER) 1,000 mg PO BEDTIME duloxetine 30 mg PO BEDTIME duloxetine 60 mg PO DAILY empagliflozin (Jardiance) 10 mg PO DAILY ezetimibe 10 mg PO DAILY fluoxetine 40 mg PO DAILY fluticasone propion-salmeterol 230-21 mcg/actuation (Advair HFA) 2 puffs inhalation DAILY gabapentin 600 mg PO DAILY gabapentin 800 mg PO DAILY insulin regular hum U-500 conc (Humulin R U-500 (Conc) Insulin Kwikpen) 135 units subcut BEDTIME ketotifen fumarate 0.025%(0.035%) (Eye Itch Relief) 1 drp ophthalmic (eye) BID PRN lidocaine 5% 1 patch topical DAILY PRN omega 8-kpd-ool-fish oil 300 mg (120 mg- 180mg)-1,000 mg 1 cap PO BID pantoprazole 40 mg PO DAILY pen needle, diabetic (BD Ultra-Fine Mini Pen Needle) As directed silver sulfadiazine 1% (SSD) 1 appl topical DAILY tiotropium bromide 1.25 mcg/actuation (Spiriva Respimat) 2 puffs inhalation DAILY tramadol 50 mg PO Q8H PRN trazodone 150 mg PO BEDTIME PRN ziprasidone HCl (Geodon) 80 mg PO BEDTIME HPI Comments Details: Darrel is a 53 y/o male with a medical history of longstanding DMII, REGI, HTN, HLD, CVA with hemiparesis (reports in 2019), DMII, REGI, gout, GERD, rheumatoid arthritis and CKD3b. Pt is on 2L supplemental O2 by [place], working through [facility] pulmonology, recent PFTs suggested possible pulmonary parenchymal disease. Non-smoker. No alcohol or other drugs. Lives at home with family, states has not worked in years due to chronic back pain. PCP: Dr Katrin López at [facility] Here for 2 week return Hospitalized Mar 2024 for pneumonia, had NICOLAS (creatinine increased to 3.35 from baseline 2.23). Creatinine trended down to 2.91. was discharged on 80mg lasix PO daily, also was taking olmesartan 40mg daily per pharmacy (pt reported losartan) After office visit on 03/27, pt had lab work re-checked, creatinine increased to 3.95 held CALEB (unclear what patient was taking, poor historian, lists state both losartan and olmesartan), and reduced dose of furosemide to 40mg daily 1 week re-check creatinine 3.00, subsequent creatinine on 04/10 stable at 3.01 patient has elevated urine protein/creatinine ratio of ~14 04/03 elevated urine microalbumin/creatinine ratio of 3,033 renal ultrasound from 03/25 unremarkable- bilateral pelviectasis without trevor hydronephrosis. serum immunofixation with faint IgG kappa monoclonal band present vitamin D mildly low at 17, PTH elevated at 498, calcium normal at 9.2 pt has renal biopsy ordered, he states he has not yet heard about an appointment for this continues to have chronic dyspnea with exertion- workup through pulmonology. Also reports has seen newspaper columnist, he is not sure of name/location. Advised please obtain name/location so we may obtain records. A1c 12.5, insulin and jardiance- reports sees an bulk driver at [facility], he is not sure of name. states they recently held jardiance, he is not sure why. no difficulty urinating, states frequency after he takes his lasix denies flank pain reports continued chronic joint pain, unchanged reports his swelling in his legs is mild/unchanged. reviewed pharmacy's list of dispensed medications today and reconciled medications. [facility] Medical History (Updated 04/10/24 @ 11:15 by Carito Roche, DNP, OPEN HEARTH STOCKYARD SUPERVISOR-BC) HTN (hypertension) Leukocytosis Memory loss Obesity Idiopathic gout of multiple sites GERD (gastroesophageal reflux disease) Hypertensive chronic kidney disease Secondary hyperparathyroidism, renal Sleep apnea Type 2 diabetes mellitus Schizoaffective disorder Chronic pain syndrome Diabetic polyneuropathy Gout Surgical History History of esophagogastroduodenoscopy (EGD) H/O colonoscopy Family History Father Cancer Diabetes Mother Cancer Diabetes Colon cancer Family/Other Cancer Diabetes Social History Household Members: Spouse Housing: House Do you presently have visiting nurse or other home services: Yes Alcohol intake: never Patient Tobacco Use Status: Never used Tobacco service: No Review of Systems Const Denies headache(s), Denies malaise and Denies weakness ENT Denies dizziness and Denies headache(s) Card Denies chest pain, Reports leg edema (reports improving), Denies lightheadedness and Reports dyspnea on exertion Resp Denies cough and Reports dyspnea on exertion GI Denies abdominal pain, Denies constipation, Denies diarrhea, Denies nausea and Denies vomiting Denies hematuria, Denies oliguria, Denies difficulty urinating, Denies dysuria and Denies urinary incontinence Skin/Breast Denies rash Neuro Denies dizziness, Denies headache(s) and Denies weakness Physical Exam Const General: no acute distress, alert and awake Resp Effort & Inspection: normal respiratory effort and able to speak in complete sentences Auscultation: clear to auscultation bilaterally Cardio Jugular venous distension: no JVD Rate: regular rate Rhythm: regular rhythm Heart sounds: S1 normal heart sound present and S2 normal heart sound present GI Palpation (GI): Soft to palpation and nontender General: Yes no CVA tenderness Back/Spine/Pelvis Back: no CVA tenderness Skin Lesions: no lesions Rashes: no rashes Extrem Right upper extremity: edema (+1 BLE pitting edema ) Results Reviewed Nephrology Results: Hgb 12.7 g/dl (14.0-18.0) L 03/27/24 WBC 12.3 X10*3/uL (4.8-10.8) H 03/27/24 Plt Count 402 X10*3/uL (160-400) H 03/27/24 Sodium 140 mmol/L (135-145) 04/10/24 Potassium 4.9 mmol/L (3.3-5.1) 04/10/24 Chloride 107 mmol/L (96-108) 04/10/24 Carbon Dioxide 28 mmol/L (22-29) 04/10/24 BUN 35 mg/dL (9-16) H 04/10/24 Creatinine 3.01 mg/dL (0.5-1.4) H 04/10/24 Calcium 9.2 mg/dL (8.4-10.2) 04/10/24 Phosphorus 4.0 mg/dL (2.7-4.5) 03/27/24 PTH Intact 498.5 pg/mL (8.7-77.1) H 03/27/24 Urine Protein >=1000 (4+) mg/dL (Neg-Trace) H 4 Urine Creatinine 80.68 mg/dL 04/03/24 Renal US 03/25/24 Assessment & Plan Assessment & Plan (1) Type 2 diabetes mellitus: Code(s): E11.9 - Type 2 diabetes mellitus without complications Category: Medical Qualifiers: Diabetes mellitus termite renewal inspector insulin use: with longterm use Diabetes mellitus complication status: with kidney complications Diabetes mellitus complication detail: with diabetic microalbuminuria Qualified Code(s): E11.29 - Type 2 diabetes mellitus with other diabetic kidney complication; R80.9 - Proteinuria, unspecified; Z79.4 - intermediate school teacher (current) use of insulin (2) CKD (chronic kidney disease): Code(s): N18.9 - Chronic kidney disease, unspecified Category: Medical Qualifiers: Chronic kidney disease stage: stage 3 (moderate) Chronic kidney disease stage 3 subtype: stage 3b (GFR 30-44) Qualified Code(s): N18.32 - Chronic kidney disease, stage 3b (3) Proteinuria: Code(s): R80.9 - Proteinuria, unspecified Category: Medical Qualifiers: Proteinuria type: persistent Qualified Code(s): R80.1 - Persistent proteinuria, unspecified (4) Anemia: Code(s): D64.9 - Anemia, unspecified Category: Medical Qualifiers: Anemia type: unspecified type Qualified Code(s): D64.9 - Anemia, unspecified (5) HTN (hypertension): Code(s): I10 - Essential (primary) hypertension Category: Medical Qualifiers: Hypertension type: primary hypertension Qualified Code(s): I10 - Essential (primary) hypertension (6) Acute kidney injury: Code(s): N17.9 - Acute kidney failure, unspecified Category: Medical Plan NICOLAS on CKD- improving, creatinine has stabilized CKD likely secondary to diabetic nephropathy, though will plan for renal biopsy given faint monoclonal band present on workup patient to continue furosemide 40mg once daily, will re-start Jardiance (recently held by endocrine per pt, suspect this was held as reduced renal function reduces efficacy of jardiance, but important to take for renal protection, so will re-start. Advised to notify diabetes doctor he is re- starting so they are aware, and to monitor his sugars closely to ensure he does not have lows, and to hydrate well). he will return in 1 month, if creatinine remains stable will consider re- starting low-dose CALEB/ARB for proteinuria (held due to NICOLAS). Secondary hyperparathyroidism, vitamin D deficiency and CKD reports he is taking 5,000iu daily (currently prescribed 2000iu daily per chart), advised continue as prescribed Plan for renal biopsy, he will follow up in 1 month, labs prior Orders: Orders Basic Metabolic Panel 1 Month N18.30 - Chronic kidney disease, stage 3 unspecified Medications: New furosemide 40 mg PO DAILY 30 tabs 2RF empagliflozin (Jardiance) 10 mg PO DAILY 30 tabs 2RF E11.29 - Type 2 diabetes mellitus with other diabetic kidney complication, N18.32 - Chronic kidney disease, stage 3b, R80.9 - Proteinuria, unspecified, Z79.4 - FDC (current) use of insulin Coding Level of Care Code New Pt Level 4 (66066) Diagnoses Type 2 diabetes mellitus with diabetic microalbuminuria, with long-term current use of insulin E11.29; R80.9; Z79.4 Diabetes mellitus termite renewal inspector insulin use: with longterm use Diabetes mellitus complication status: with kidney complications Diabetes mellitus complication detail: with diabetic microalbuminuria Stage 3b chronic kidney disease N18.32 Chronic kidney disease stage: stage 3 (moderate) Chronic kidney disease stage 3 subtype: stage 3b (GFR 30-44) Persistent proteinuria R80.1 Proteinuria type: persistent Anemia, unspecified type D64.9 Anemia type: unspecified type Primary hypertension I10 Hypertension type: primary hypertension Acute kidney injury N17.9 Time Spent (min) 30 Comment time spent assessing, counseling, documentation, chart review: 30 minutes.
[2024-04-24 10:45] VITALS: BP 110/70; PULSE 94; O2SAT 96; BMI 38.4
== END 2024-04-24 12:00 | disposition home or self-care (01) ==
PROVIDERS: PCP Student in an Organized Health Care Education/Training Program; Visit Provider Nurse Practitioner Family
DX: I12.9 Hypertensive chronic kidney disease with stage 1 through stage 4 chronic kidney disease, or unspecified chronic kidney disease (principal); E11.22 Type 2 diabetes mellitus with diabetic chronic kidney disease; N18.32 Chronic kidney disease, stage 3b; R80.1 Persistent proteinuria, unspecified; Z79.4 Long term (current) use of insulin; D63.1 Anemia in chronic kidney disease; N17.9 Acute kidney failure, unspecified
CPT/HCPCS: 99214

== ENCOUNTER → 2024-04-24 10:30 | Outpatient (BNVA) | payer MEDICAID, SELFPAY | PROVIDERS: PCP Student in an Organized Health Care Education/Training Program; Visit Provider Nurse Practitioner Family | DX: E11.22 Type 2 diabetes mellitus with diabetic chronic kidney disease (principal); I12.9 Hypertensive chronic kidney disease with stage 1 through stage 4 chronic kidney disease, or unspecified chronic kidney disease; N18.32 Chronic kidney disease, stage 3b; E11.29 Type 2 diabetes mellitus with other diabetic kidney complication; R80.9 Proteinuria, unspecified; R80.1 Persistent proteinuria, unspecified; D64.9 Anemia, unspecified; N17.9 Acute kidney failure, unspecified; Z79.4 Long term (current) use of insulin | CPT/HCPCS: 99212 ==

== ENCOUNTER → 2024-05-03 08:05 | Outpatient (BNVA) | payer MEDICAID, SELFPAY | PROVIDERS: PCP Student in an Organized Health Care Education/Training Program; Visit Provider Surgery ==

== ENCOUNTER 2024-05-10 10:39 | Outpatient (AMB) | payer MEDICAID, SELFPAY ==
[2024-05-10 10:45] VITALS: BP 118/67; PULSE 100; O2SAT 95; BMI 37.9
--- NOTE | 2024-05-10 10:45 | MHC.OFFVIS ---
Vital Signs 05/10/24 10:45 Height 5 ft 9 in Weight 256 lb 13.416 oz BMI 37.9 BP 118/67 Blood Pressure Location Rt brachial Position Sitting Pulse 100 Pulse Source Doppler Pulse Oximetry (%) 95 Oxygen Delivery Method Room Air Intake Visit Reasons: asthma Mechanical Designer Required: Yes Mechanical Designer Name: sIha CaballeroJuhiChristina Allergies Penicillins [PENICILLINS] Allergy (Intermediate, Verified 04/24/24 10:44) RASH, DIFFICULTY BREATHING HPI HPI asthma: Details: 53-year-old gentleman, nonsmoker, with underlying obesity and obstructive sleep apnea, currently under care of of sleep medicine provider pending to receive CPAP referred for evaluation of hypoxia. Patient states that while in [place] he had oxygen evaluation was told that he needs supplemental oxygen. He does not currently have supplemental oxygen. He is also following with webfed offset press operator and has a 2D echocardiogram that is pending. He does complain of orthopnea, lower extremity edema, and paroxysmal nocturnal dyspnea. Patient also has a history of asthma since childhood which at this time is controlled on current regimen of Advair and albuterol MDI/nebs. He denies recent exacerbations. Patient denies family history of lung disease. After the last office visit patient had pulmonary function test that showed no underlying obstructive ventilatory defect a different capacity concerns. Continues to use supplemental oxygen. He has not received his CPAP machine. [facility] Medical History (Updated 05/10/24 @ 11:50 by Edison Vieira MD) HTN (hypertension) Leukocytosis Memory loss Obesity Idiopathic gout of multiple sites GERD (gastroesophageal reflux disease) Hypertensive chronic kidney disease Secondary hyperparathyroidism, renal Sleep apnea Type 2 diabetes mellitus Schizoaffective disorder Chronic pain syndrome Diabetic polyneuropathy Gout Surgical History History of esophagogastroduodenoscopy (EGD) H/O colonoscopy Family History Father Cancer Diabetes Mother Cancer Diabetes Colon cancer Family/Other Cancer Diabetes Social History Household Members: Spouse Housing: House Do you presently have visiting nurse or other home services: Yes Alcohol intake: never Patient Tobacco Use Status: Never used Tobacco service: No Review of Systems Const Reports daytime sleepiness, Denies excessive sweating, Denies fatigue, Denies fever(s), Reports lethargy, Reports malaise, Denies night sweats, Reports snoring and Denies weight loss Eyes Denies blurry vision and Denies itchy eyes ENT Denies nasal congestion, Denies post nasal drip, Denies sinus pain, Denies sinus pressure and Denies other ( Thrush) Card Denies chest pain, Denies pedal edema, Denies dyspnea, Denies orthopnea and Denies paroxysmal nocturnal dyspnea Resp Denies cough, Denies hemoptysis, Denies excessive phlegm production, Denies dyspnea, Reports snoring and Denies wheezing GI Denies abdominal pain and Denies heartburn Musc Denies myalgias, Denies arthralgias and Denies joint swelling Skin/Breast Denies rash Neuro Denies memory loss and Denies seizure-like activity Psych Denies abnormal sleep pattern, Denies anxiety and Denies memory loss Endo Denies excessive sweating, Denies fatigue and Denies heat intolerance Ming/Lymph Denies easy bruising Aller/Immun Denies itchy eyes, Denies seasonal rhinorrhea and Denies wheezing Physical Exam Vital Signs: Last Vital Signs Pulse 100 05/10/24 10:45 BP 118/67 05/10/24 10:45 Pulse Ox 95 05/10/24 10:45 Oxygen Delivery Method Room Air 05/10/24 10:45 BMI result Body Mass Index 37.9 Const General: no acute distress and alert Nutritional Appearance: obese Orientation/consciousness: Other orientation findings ( oriented) HEENT Head: Yes atraumatic Eyes General: appearance normal, both eyes and all related structures Sclerae: sclerae normal EOM: EOMs intact bilaterally Neck Neck: Yes supple Lymphatic: no lymphadenopathy noted Resp Effort & Inspection: normal respiratory effort and no use of accessory muscles Auscultation: clear to auscultation bilaterally Cardio Rate: regular rate Rhythm: regular rhythm Heart sounds: no gallops, no murmurs and no rubs Skin General skin exam: other ( warm) Extrem General: No clubbing, No cyanosis and No edema Assessment & Plan Assessment & Plan (1) Supplemental oxygen dependent: Code(s): Z99.81 - Dependence on supplemental oxygen Category: Medical Plan: Continue supplemental oxygen to maintain O2 saturation above 88%. (2) Reactive airway disease: Code(s): J45.909 - Unspecified asthma, uncomplicated Category: Medical Plan: Well controlled on Advair, Spiriva, and albuterol MDI/nebs. Continue current regimen. (3) REGI on CPAP: Code(s): G47.33 - Obstructive sleep apnea (adult) (pediatric) Category: Medical Plan: Patient has not received his CPAP machine from his sleep provider. CPAP machine ordered. Underlying moderate obstructive sleep apnea. Coding Level of Care Code Est Pt Level 4 (64197) Complex EM visit Add On G2211 Diagnoses Supplemental oxygen dependent Z99.81 Reactive airway disease J45.909 REGI on CPAP G47.33
== END 2024-05-10 11:02 | disposition home or self-care (01) ==
PROVIDERS: PCP Student in an Organized Health Care Education/Training Program; Visit Provider Internal Medicine Pulmonary Disease
DX: Z99.81 Dependence on supplemental oxygen (principal); J45.909 Unspecified asthma, uncomplicated; G47.33 Obstructive sleep apnea (adult) (pediatric)
CPT/HCPCS: 99214

== ENCOUNTER → 2024-05-10 10:39 | Outpatient (BNVA) | payer MEDICAID, SELFPAY | PROVIDERS: PCP Student in an Organized Health Care Education/Training Program; Visit Provider Internal Medicine Pulmonary Disease | DX: J45.909 Unspecified asthma, uncomplicated (principal); G47.33 Obstructive sleep apnea (adult) (pediatric); Z99.81 Dependence on supplemental oxygen | CPT/HCPCS: 99212 ==

== ENCOUNTER 2024-05-17 13:33 | Outpatient (AMB) | payer MEDICAID, SELFPAY ==
[2024-05-17 13:52] VITALS: BP 152/88; PULSE 102; O2SAT 93; BMI 39.9
--- NOTE | 2024-05-17 13:52 | HO.NEPHOV ---
Vital Signs 05/17/24 13:52 Height 5 ft 9 in Weight 270 lb BMI 39.9 BP 152/88 H Blood Pressure Location Rt brachial Position Sitting Pulse 102 H Pulse Source Pulse Oximeter Pulse Oximetry (%) 93 Oxygen Delivery Method Room Air Intake Visit Reasons: Anemia-Conf Antique Furniture Restorer Required: Yes Antique Furniture Restorer Name: Tali [id number] Accompanied by: Spouse Allergies Penicillins [PENICILLINS] Allergy (Intermediate, Verified 05/17/24 13:59) RASH, DIFFICULTY BREATHING HPI Comments Details: Darrel is a 53 y/o male with a medical history of longstanding DMII, REGI, HTN, HLD, CVA with hemiparesis (reports in 2019), DM II, REGI, gout, GERD, rheumatoid arthritis and CKD3b. He is seen in follow up today. He is being enrolled in study now. In Mar 2024 for pneumonia, had NICOLAS (creatinine increased to 3.35 from baseline 2.23). Creatinine trended down & stable. (unclear what patient was taking, poor historian) .patient has elevated urine protein/creatinine ratio of ~14 .renal ultrasound from 03/25 unremarkable- bilateral pelviectasis without trevor hydronephrosis. serum immunofixation with faint IgG kappa monoclonal band present . Last vitamin D mildly low at 17, PTH elevated at 498, calcium normal at 9.2. Has been having high HbA1c. Had been getting intermittent hypoglycemias. jardiance is currently on hold. He had no specific complaints at the time of this office visit [facility] Medical History (Updated 05/18/24 @ 21:53 by Grayson Rodriguez MD) HTN (hypertension) Leukocytosis Memory loss Obesity Idiopathic gout of multiple sites GERD (gastroesophageal reflux disease) Hypertensive chronic kidney disease Secondary hyperparathyroidism, renal Sleep apnea Type 2 diabetes mellitus Schizoaffective disorder Chronic pain syndrome Diabetic polyneuropathy Gout Surgical History History of esophagogastroduodenoscopy (EGD) H/O colonoscopy Family History Father Cancer Diabetes Mother Cancer Diabetes Colon cancer Family/Other Cancer Diabetes Social History Household Members: Spouse Housing: House Do you presently have visiting nurse or other home services: Yes Alcohol intake: never Patient Tobacco Use Status: Never used Tobacco service: No Review of Systems Const All systems reviewed & are unremarkable except as noted in HPI and below Physical Exam Vital Signs: Last Vital Signs Pulse 102 H 05/17/24 13:52 BP 152/88 H 05/17/24 13:52 Pulse Ox 93 05/17/24 13:52 Oxygen Delivery Method Room Air 05/17/24 13:52 BMI result Body Mass Index 39.9 Const General: comfortable and no acute distress Orientation/consciousness: patient oriented x3 HEENT Head: Yes normocephalic Mouth: Normal oral and palatal mucosa present Eyes EOM: EOMs intact bilaterally Neck Neck: Yes supple Resp Auscultation: clear to auscultation bilaterally Cardio Jugular venous distension: no JVD Rate: regular rate GI Palpation (GI): Soft to palpation Auscultation: normal bowel sounds General: Yes no CVA tenderness Back/Spine/Pelvis Back: no CVA tenderness Skin General skin exam: no rashes or lesions noted Neuro General: patient oriented x3 and moves all extremities Extrem General: Yes no pedal edema Results Reviewed Nephrology Results: Sodium 140 mmol/L (135-145) 04/10/24 Potassium 4.9 mmol/L (3.3-5.1) 04/10/24 Chloride 107 mmol/L (96-108) 04/10/24 Carbon Dioxide 28 mmol/L (22-29) 04/10/24 BUN 35 mg/dL (9-16) H 04/10/24 Creatinine 3.01 mg/dL (0.5-1.4) H 04/10/24 Calcium 9.2 mg/dL (8.4-10.2) 04/10/24 Urine Creatinine 80.68 mg/dL 04/03/24 Assessment & Plan Assessment & Plan (1) Diabetic nephropathy associated with type 2 diabetes mellitus: Code(s): E11.21 - Type 2 diabetes mellitus with diabetic nephropathy Category: Medical (2) Secondary hyperparathyroidism: Code(s): N25.81 - Secondary hyperparathyroidism of renal origin Category: Medical (3) HTN (hypertension): Code(s): I10 - Essential (primary) hypertension Category: Medical Qualifiers: Hypertension type: primary hypertension Qualified Code(s): I10 - Essential (primary) hypertension (4) CKD (chronic kidney disease) stage 4, GFR 15-29 ml/min: Code(s): N18.4 - Chronic kidney disease, stage 4 (severe) Category: Medical Plan CKD due to diabetic nephropathy. Has a faint monoclonal band present on workup. patient to continue furosemide 40mg once daily, will re-start Jardiance with time based on renal function. will consider re-starting low-dose CALEB/ARB for proteinuria (held due to recent NICOLAS). On Vitamin D. Volume status optimal. BP at home OK. No NSAID's. Good hydration. Being enrolled in study. Answered all questions. F/U labs ordered. Orders: Orders Blood Urea Nitrogen 1 Month E11.21 - Type 2 diabetes mellitus with diabetic nephropathy Creatinine 1 Month E11.21 - Type 2 diabetes mellitus with diabetic nephropathy Electrolytes 1 Month E11.21 - Type 2 diabetes mellitus with diabetic nephropathy Coding Level of Care Code Est Pt Level 4 (87985) Diagnoses Diabetic nephropathy associated with type 2 diabetes mellitus E11.21 Secondary hyperparathyroidism N25.81 Primary hypertension I10 Hypertension type: primary hypertension CKD (chronic kidney disease) stage 4, GFR 15-29 ml/min N18.4
== END 2024-05-17 14:33 | disposition home or self-care (01) ==
PROVIDERS: PCP Student in an Organized Health Care Education/Training Program; Visit Provider Internal Medicine Nephrology
DX: N25.81 Secondary hyperparathyroidism of renal origin (principal); I12.9 Hypertensive chronic kidney disease with stage 1 through stage 4 chronic kidney disease, or unspecified chronic kidney disease; E11.22 Type 2 diabetes mellitus with diabetic chronic kidney disease; N18.4 Chronic kidney disease, stage 4 (severe)
CPT/HCPCS: 99214

== ENCOUNTER → 2024-05-17 13:33 | Outpatient (BNVA) | payer MEDICAID, SELFPAY | PROVIDERS: PCP Student in an Organized Health Care Education/Training Program; Visit Provider Internal Medicine Nephrology | DX: E11.22 Type 2 diabetes mellitus with diabetic chronic kidney disease (principal); I12.9 Hypertensive chronic kidney disease with stage 1 through stage 4 chronic kidney disease, or unspecified chronic kidney disease; N18.4 Chronic kidney disease, stage 4 (severe); E11.21 Type 2 diabetes mellitus with diabetic nephropathy; N25.81 Secondary hyperparathyroidism of renal origin | CPT/HCPCS: 99212 ==

== ENCOUNTER 2024-05-20 11:12 | Outpatient (AMB) | payer MEDICAID, SELFPAY ==
--- NOTE | 2024-05-20 11:14 | A.OFFVIS_ITS ---
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* Animal Ride Manager Required: Yes Animal Ride Manager Services: Animal Ride Manager Present Information Interpreted: clinical only Allergies Penicillins [PENICILLINS] Allergy (Intermediate, Verified 05/20/24 11:35) RASH, DIFFICULTY BREATHING Medication List - Last Reconciled 05/20/24 by Chuy Mcmanus MD acetaminophen 1,000 mg PO Q6H PRN albuterol sulfate 2.5 mg inhalation Q6H PRN ammonium lactate 12% 1 appl topical DAILY aspirin 1 tab PO DAILY atorvastatin 80 mg PO DAILY blood-glucose meter,continuous ([employer] G7 [employer] Specialist) As directed blood-glucose sensor (Dexcom G7 Sensor device) As directed calcium carbonate (Calcium Antacid) 400 mg PO DAILY carboxymethylcellulose sodium 0.5% (Lubricant Eye Drops) 1 drp ophthalmic (eye) NEEDED carvedilol 25 mg PO BID cholecalciferol (vitamin D3) 125 mcg (2.5 x 50 mcg (2,000 unit)) PO DAILY cholecalciferol (vitamin D3) 1,250 mcg PO QWEEK clonazepam 0.5 mg PO TID divalproex ER (Depakote ER) 1,000 mg PO BEDTIME duloxetine 30 mg PO BEDTIME duloxetine 60 mg PO DAILY empagliflozin (Jardiance) 10 mg PO DAILY ezetimibe 10 mg PO DAILY fluoxetine 40 mg PO DAILY fluticasone propion-salmeterol 230-21 mcg/actuation (Advair HFA) 2 puffs inhala tion DAILY furosemide 40 mg PO DAILY gabapentin 600 mg PO DAILY gabapentin 800 mg PO DAILY insulin regular hum U-500 conc (Humulin R U-500 (Conc) Insulin Kwikpen) 135 units subcut BEDTIME ketotifen fumarate 0.025%(0.035%) (Eye Itch Relief) 1 drp ophthalmic (eye) BID PRN lidocaine 5% 1 patch topical DAILY PRN omega 8-pwl-hez-fish oil 300 mg (120 mg- 180mg)-1,000 mg 1 cap PO BID pantoprazole 40 mg PO DAILY pen needle, diabetic (BD Ultra-Fine Mini Pen Needle) As directed silver sulfadiazine 1% (SSD) 1 appl topical DAILY tiotropium bromide 1.25 mcg/actuation (Spiriva Respimat) 2 puffs inhalation DAILY tramadol 50 mg PO Q8H PRN trazodone 150 mg PO BEDTIME PRN ziprasidone HCl (Geodon) 80 mg PO BEDTIME HPI Comments Details: Previous weight loss efforts: self diets Wakes up: 8am, Sleeps: 11pm Breakfast: (8.30am: 2 boiled eggs) Lunch: 12pm (lettuce, chicken) Dinner: 6pm (chicken) Snacks: 8pm (sweets) Exercise: None Fluids: Coffee/tea: none, soda: none, juice: with low blood sugars, ETOH: none PFSH Medical History (Updated 05/20/24 @ 12:17 by Chuy Mcmanus MD) HTN (hypertension) Leukocytosis Memory loss Obesity Idiopathic gout of multiple sites GERD (gastroesophageal reflux disease) Hypertensive chronic kidney disease Secondary hyperparathyroidism, renal Sleep apnea Type 2 diabetes mellitus Schizoaffective disorder Chronic pain syndrome Diabetic polyneuropathy Gout Surgical History History of esophagogastroduodenoscopy (EGD) H/O colonoscopy Family History Father Cancer Diabetes Mother Cancer Diabetes Colon cancer Family/Other Cancer Diabetes Social History Household Members: Spouse Housing: House Do you presently have visiting nurse or other home services: Yes Alcohol intake: never Patient Tobacco Use Status: Never used Tobacco service: No Physical Exam Vital Signs: Last Vital Signs Temp 97.9 F 05/20/24 11:20 Pulse 92 05/20/24 11:20 BP 138/80 05/20/24 11:20 Pulse Ox 94 05/20/24 11:20 Oxygen Delivery Method Room Air 01/13/25 11:20 BMI result Body Mass Index 38.2 GI Inspection: Yes normal to inspection and Yes obesity Palpation (GI): Soft to palpation Extrem Right lower extremity: edema Left lower extremity: edema Assessment & Plan Assessment & Plan (1) Obesity: Code(s): E66.9 - Obesity, unspecified Category: Medical Qualifiers: Obesity type: due to excess calories Obesity classification: adult class 2 (BMI 35 - 39.9) Serious obesity comorbidity presence: with serious comorbidity Body mass index: BMI 37.0-37.9 Qualified Code(s): E66.812 - Obesity, class 2; E66.01 - Morbid (severe) obesity due to excess calories; Z68.37 - Body mass index [BMI] 37.0-37.9, adult Plan: 1. Plan for lap sleeve gastrectomy. If diaphragmatic or ventral hernias are present at time of surgery, these will be repaired laparoscopically as well. I emphasized the importance of close follow-up, adherence to instructions and good communication. The surgery does not replace the need to change your lifestlyle which is the cause of the obesity problem. The surgery provides the motivation to try again to change your lifestyle, it reduces the appetite and make the transition to a better lifestyle easier and doubles the amount of weight you would lose compared to doing the lifestyle change without the surgery. You will need to be on a liquid diet with protein shakes for 2 weeks before surgery to maximize weight loss and boost your nutritional status to recover better from surgery and also for the first two weeks after surgery to let the stomach heal before we introduce other foods. After the first 2 weeks we will introduce protein bars and soft foods like scrambled eggs, cottage cheese and yogurt and after the 6th week will introduce meat, fish and cooked vegetables in small amounts. Over time you should be able to eat everything in small amounts. Side effects like nausea, vomiting, heartburn or abdominal pain are not common in the practice unless you are not following in the practice. This operation requires lifetime commitment to following in our practice and communication with me. You will much less weight and experience side effects if you don?t communicate or not following in the practice. Complications are rare and in our practice is about 1/10 of the national average. However, you can develop bleeding that may require transfusion (hasn?t happened for year in the practice), you may from complications (we did not have any deaths in the practice) and infections. Infections are usually a result of breakdown in communication or not understanding or following directions correctly. They are difficult to treat, they can happen during the first 6 weeks, they may require to be in the hospital for weeks or even months, not being able to eat by mouth and you may have drains and surgeries to try and correct the issue. Other risks and complications include possible conversion to an open procedure, leaks, small bowel obstruction, blood clots, cardiac, or pulmonary complications, as vermin exterminator complications such as ulcers, insufficient weight loss and vitamin deficiencies. 2. Nutritional counseling. Start with 2 CELEBRATE REBUILD protein (buy at [facility]) shakes (ONE scoop EACH in 8oz low fat unsweetened almond milk each) at 9am-11am and 12pm-2pm, 1 protein bar (CELEBRATE protein bars, buy at [facility] [employer] [facility]) at 3pm-5pm, dinner at 6pm (10 forks of protein and 10 forks of salad/vegetables) AND one more protein bar after dinner at 8pm-10pm. So you do 2 protein shakes, 2 protein bars and one meal per day. Meal to include lean meat (beef, fish, pork, turkey, chicken), or japanese yogurt, or egg whites, or beans with a salad with olive oil and fruits (berries, pears, apples, kiwi). Avoid salt, breads, potatoes, rice, pasta, desserts. 3. Each shake would be drunk slowly, like coffee in a period of 2 hours. 4. Cut each bar in 4 pieces and eat each piece in 30min to make each bar last 2 hours. 5. I emphasized the importance of measuring accurately the food portion and measure it when serving the food in plate 6. The meal portions include 10 full-size forks of meat and 10 full-size forks of salad. You always eat the meat portion but you can replace up to 5 forks for salad/vegetables with rice, potatoes or pasta, or a fruit if you like. The less you do it the better weight loss will be. 7. One full-size fork is what it can be scooped on the fork without falling aside and not what can be bit with the fork. Use regular forks like those you find in a typical restaurant. 8. Please send me weight measurements as soon as possible and then once a week. Always include your diet and exercise plan. 9. The best choice would be to purchase a stationary bike at home that can track calories. Let me know if you do so I can give you an exercise plan. 10. Goal is to lose at least 1.5-2lbs per week 11. Goal to lose 10% of your weight before surgery, which is about 25lbs. Ultimate weight goal: 226lbs before surgery 12. Please follow the diet plan exactly without any change. If you don't like something about the plan or you feel hungry you need to communicate with me so I can help you revise the plan. You should not change the plan yourself. 13. To be scheduled for EGD on 05/30/2024 due to history of GERD. The possibility of biopsies was discussed. Patient needs to avoid use of NSAIDs and aspirin for 1 week prior to EGD. Risks of perforation and bleeding was discussed with the patient. This will be an outpatient procedure with IV sedation. 14. Emphasized the importance of checking his blood glucose levels frequently and daily and to report to me any blood glucose below 100, so I can adjust his insulin and prevent hypoglycemic episodes 15. Emphasized the importance of monitoring the blood pressure daily in am when wakes up and two more times throughout the day. If systolic blood pressure is 120 mmHg, or less I explained to the patient that needs to notify me. Also I explained the symptoms of orthostatic hypotension (dizziness and lightheadedness) for which the patient also needs to notify me. Orders: Orders Hemoglobin A1c Today E11.29 - Type 2 diabetes mellitus with other diabetic kidney complication, E11.42 - Type 2 diabetes mellitus with diabetic polyneuropathy, E66.9 - Obesity, unspecified, G47.33 - Obstructive sleep apnea (adult) (pediatric), I10 - Essential (primary) hypertension, M10.9 - Gout, unspecified, N18.32 - Chronic kidney disease, stage 3b, R80.9 - Proteinuria, unspecified, Z68.37 - Body mass index [BMI] 37.0-37.9, adult, Z79.4 - long-term (current) use of insulin H Pylori Breath Test Today E11.29 - Type 2 diabetes mellitus with other diabetic kidney complication, E11.42 - Type 2 diabetes mellitus with diabetic polyneuropathy, E66.9 - Obesity, unspecified, G47.33 - Obstructive sleep apnea (adult) (pediatric), I10 - Essential (primary) hypertension, M10.9 - Gout, unspecified, N18.32 - Chronic kidney disease, stage 3b, R80.9 - Proteinuria, unspecified, Z68.37 - Body mass index [BMI] 37.0-37.9, adult, Z79.4 - terminal makeup operator (current) use of insulin Complete Blood Count Auto Diff Today E11.29 - Type 2 diabetes mellitus with other diabetic kidney complication, E11.42 - Type 2 diabetes mellitus with diabetic polyneuropathy, E66.9 - Obesity, unspecified, G47.33 - Obstructive sleep apnea (adult) (pediatric), I10 - Essential (primary) hypertension, M10.9 - Gout, unspecified, N18.32 - Chronic kidney disease, stage 3b, R80.9 - Proteinuria, unspecified, Z68.37 - Body mass index [BMI] 37.0-37.9, adult, Z79.4 - terminal makeup operator (current) use of insulin Comprehensive Met. Panel Today E11.29 - Type 2 diabetes mellitus with other diabetic kidney complication, E11.42 - Type 2 diabetes mellitus with diabetic polyneuropathy, E66.9 - Obesity, unspecified, G47.33 - Obstructive sleep apnea (adult) (pediatric), I10 - Essential (primary) hypertension, M10.9 - Gout, unspecified, N18.32 - Chronic kidney disease, stage 3b, R80.9 - Proteinuria, unspecified, Z68.37 - Body mass index [BMI] 37.0-37.9, adult, Z79.4 - terminal makeup operator (current) use of insulin Vitamin B12 and Folate Today E11.29 - Type 2 diabetes mellitus with other diabetic kidney complication, E11.42 - Type 2 diabetes mellitus with diabetic polyneuropathy, E66.9 - Obesity, unspecified, G47.33 - Obstructive sleep apnea (adult) (pediatric), I10 - Essential (primary) hypertension, M10.9 - Gout, unspecified, N18.32 - Chronic kidney disease, stage 3b, R80.9 - Proteinuria, u nspecified, Z68.37 - Body mass index [BMI] 37.0-37.9, adult, Z79.4 - terminal makeup operator (current) use of insulin Zinc Today E11.29 - Type 2 diabetes mellitus with other diabetic kidney complication, E11.42 - Type 2 diabetes mellitus with diabetic polyneuropathy, E66.9 - Obesity, unspecified, G47.33 - Obstructive sleep apnea (adult) (pediatric), I10 - Essential (primary) hypertension, M10.9 - Gout, unspecified, N18.32 - Chronic kidney disease, stage 3b, R80.9 - Proteinuria, unspecified, Z68.37 - Body mass index [BMI] 37.0-37.9, adult, Z79.4 - terminal makeup operator (current) use of insulin Vitamin B1 Today E11.29 - Type 2 diabetes mellitus with other diabetic kidney complication, E11.42 - Type 2 diabetes mellitus with diabetic polyneuropathy, E66.9 - Obesity, unspecified, G47.33 - Obstructive sleep apnea (adult) (pediatric), I10 - Essential (primary) hypertension, M10.9 - Gout, unspecified, N18.32 - Chronic kidney disease, stage 3b, R80.9 - Proteinuria, unspecified, Z68.37 - Body mass index [BMI] 37.0-37.9, adult, Z79.4 - terminal makeup operator (current) use of insulin TSH reflex Free T4 Today E11.29 - Type 2 diabetes mellitus with other diabetic kidney complication, E11.42 - Type 2 diabetes mellitus with diabetic polyneuropathy, E66.9 - Obesity, unspecified, G47.33 - Obstructive sleep apnea (adult) (pediatric), I10 - Essential (primary) hypertension, M10.9 - Gout, unspecified, N18.32 - Chronic kidney disease, stage 3b, R80.9 - Proteinuria, unspecified, Z68.37 - Body mass index [BMI] 37.0-37.9, adult, Z79.4 - terminal makeup operator (current) use of insulin Vitamin D 25-OH Total Today E11.29 - Type 2 diabetes mellitus with other diabetic kidney complication, E11.42 - Type 2 diabetes mellitus with diabetic polyneuropathy, E66.9 - Obesity, unspecified, G47.33 - Obstructive sleep apnea (adult) (pediatric), I10 - Essential (primary) hypertension, M10.9 - Gout, unspecified, N18.32 - Chronic kidney disease, stage 3b, R80.9 - Proteinuria, unspecified, Z68.37 - Body mass index [BMI] 37.0-37.9, adult, Z79.4 - terminal makeup operator (current) use of insulin US abdomen comp w elastography Today E11.29 - Type 2 diabetes mellitus with other diabetic kidney complication, E11.42 - Type 2 diabetes mellitus with diabetic polyneuropathy, E66.9 - Obesity, unspecified, G47.33 - Obstructive sleep apnea (adult) (pediatric), I10 - Essential (primary) hypertension, M10.9 - Gout, unspecified, N18.32 - Chronic kidney disease, stage 3b, R80.9 - Proteinuria, unspecified, Z68.37 - Body mass index [BMI] 37.0-37.9, adult, Z79.4 - terminal makeup operator (current) use of insulin XR chest 2V Today E11.29 - Type 2 diabetes mellitus with other diabetic kidney complication, E11.42 - Type 2 diabetes mellitus with diabetic polyneuropathy, E66.9 - Obesity, unspecified, G47.33 - Obstructive sleep apnea (adult) (pediatric), I10 - Essential (primary) hypertension, M10.9 - Gout, unspecified, N18.32 - Chronic kidney disease, stage 3b, R80.9 - Proteinuria, unspecified, Z68.37 - Body mass index [BMI] 37.0-37.9, adult, Z79.4 - long-term (current) use of insulin FL upper GI w air Today E11.29 - Type 2 diabetes mellitus with other diabetic kidney complication, E11.42 - Type 2 diabetes mellitus with diabetic polyneuropathy, E66.9 - Obesity, unspecified, G47.33 - Obstructive sleep apnea (adult) (pediatric), I10 - Essential (primary) hypertension, M10.9 - Gout, unspecified, N18.32 - Chronic kidney disease, stage 3b, R80.9 - Proteinuria, unspecified, Z68.37 - Body mass index [BMI] 37.0-37.9, adult, Z79.4 - terminal makeup operator (current) use of insulin Insulin Today E11.29 - Type 2 diabetes mellitus with other diabetic kidney complication, E11.42 - Type 2 diabetes mellitus with diabetic polyneuropathy, E66.9 - Obesity, unspecified, G47.33 - Obstructive sleep apnea (adult) (pediatric), I10 - Essential (primary) hypertension, M10.9 - Gout, unspecified, N18.32 - Chronic kidney disease, stage 3b, R80.9 - Proteinuria, unspecified, Z68.37 - Body mass index [BMI] 37.0-37.9, adult, Z79.4 - long-term (current) use of insulin Lipid Panel Today E11.29 - Type 2 diabetes mellitus with other diabetic kidney complication, E11.42 - Type 2 diabetes mellitus with diabetic polyneuropathy, E66.9 - Obesity, unspecified, G47.33 - Obstructive sleep apnea (adult) (pediatric), I10 - Essential (primary) hypertension, M10.9 - Gout, unspecified, N18.32 - Chronic kidney disease, stage 3b, R80.9 - Proteinuria, unspecified, Z68.37 - Body mass index [BMI] 37.0-37.9, adult, Z79.4 - terminal makeup operator (current) use of insulin IRON PROFILE Today E11.29 - Type 2 diabetes mellitus with other diabetic kidney complication, E11.42 - Type 2 diabetes mellitus with diabetic polyneuropathy, E66.9 - Obesity, unspecified, G47.33 - Obstructive sleep apnea (adult) (pediatric), I10 - Essential (primary) hypertension, M10.9 - Gout, unspecified, N18.32 - Chronic kidney disease, stage 3b, R80.9 - Proteinuria, unspecified, Z68.37 - Body mass index [BMI] 37.0-37.9, adult, Z79.4 - long-term (current) use of insulin C Reactive Protein Today E11.29 - Type 2 diabetes mellitus with other diabetic kidney complication, E11.42 - Type 2 diabetes mellitus with diabetic polyneuropathy, E66.9 - Obesity, unspecified, G47.33 - Obstructive sleep apnea (adult) (pediatric), I10 - Essential (primary) hypertension, M10.9 - Gout, unspecified, N18.32 - Chronic kidney disease, stage 3b, R80.9 - Proteinuria, unspecified, Z68.37 - Body mass index [BMI] 37.0-37.9, adult, Z79.4 - long-term (current) use of insulin Vitamin A Today E11.29 - Type 2 diabetes mellitus with other diabetic kidney complication, E11.42 - Type 2 diabetes mellitus with diabetic polyneuropathy, E66.9 - Obesity, unspecified, G47.33 - Obstructive sleep apnea (adult) (pediatric), I10 - Essential (primary) hypertension, M10.9 - Gout, unspecified, N18.32 - Chronic kidney disease, stage 3b, R80.9 - Proteinuria, unspecified, Z68.37 - Body mass index [BMI] 37.0-37.9, adult, Z79.4 - terminal makeup operator (current) use of insulin Ferritin Today E11.29 - Type 2 diabetes mellitus with other diabetic kidney complication, E11.42 - Type 2 diabetes mellitus with diabetic polyneuropathy, E66.9 - Obesity, unspecified, G47.33 - Obstructive sleep apnea (adult) (pediatric), I10 - Essential (primary) hypertension, M10.9 - Gout, unspecified, N18.32 - Chronic kidney disease, stage 3b, R80.9 - Proteinuria, unspecified, Z68 .37 - Body mass index [BMI] 37.0-37.9, adult, Z79.4 - terminal makeup operator (current) use of insulin ECG 12 lead EKG Today E11.29 - Type 2 diabetes mellitus with other diabetic kidney complication, E11.42 - Type 2 diabetes mellitus with diabetic polyneuropathy, E66.9 - Obesity, unspecified, G47.33 - Obstructive sleep apnea (adult) (pediatric), I10 - Essential (primary) hypertension, M10.9 - Gout, unspecified, N18.32 - Chronic kidney disease, stage 3b, R80.9 - Proteinuria, unspecified, Z68.37 - Body mass index [BMI] 37.0-37.9, adult, Z79.4 - terminal makeup operator (current) use of insulin Referrals Behavioral Health Referral E11.29 - Type 2 diabetes mellitus with other diabetic kidney complication, E11.42 - Type 2 diabetes mellitus with diabetic polyneuropathy, E66.9 - Obesity, unspecified, G47.33 - Obstructive sleep apnea (adult) (pediatric), I10 - Essential (primary) hypertension, M10.9 - Gout, unspecified, N18.32 - Chronic kidney disease, stage 3b, R80.9 - Proteinuria, unspecified, Z68.37 - Body mass index [BMI] 37.0-37.9, adult, Z79.4 - terminal makeup operator (current) use of insulin Nutrition/Dietitian Referral E11.29 - Type 2 diabetes mellitus with other diabetic kidney complication, E11.42 - Type 2 diabetes mellitus with diabetic polyneuropathy, E66.9 - Obesity, unspecified, G47.33 - Obstructive sleep apnea (adult) (pediatric), I10 - Essential (primary) hypertension, M10.9 - Gout, unspecified, N18.32 - Chronic kidney disease, stage 3b, R80.9 - Proteinuria, unspecified, Z68.37 - Body mass index [BMI] 37.0-37.9, adult, Z79.4 - long-term (current) use of insulin Medications: New tirzepatide (weight loss) (Zepbound) for 4 weeks 2.5 mg (0.5 mL) subcut QWEEK 2 mL 0RF E11.29 - Type 2 diabetes mellitus with other diabetic kidney complication, E66.01 - Morbid (severe) obesity due to excess calories, E66.812 - Obesity, class 2, R80.9 - Proteinuria, unspecified, Z68.37 - Body mass index [BMI] 37.0-37.9, adult, Z79.4 - terminal makeup operator (current) use of insulin
[2024-05-20 11:20] VITALS: BP 138/80; PULSE 92; TEMP 36.6; O2SAT 94; BMI 38.2
== END 2024-05-20 12:32 | disposition home or self-care (01) ==
PROVIDERS: PCP Student in an Organized Health Care Education/Training Program; Visit Provider Surgery
DX: E66.812 Obesity, class 2 (principal); Z68.37 Body mass index [BMI] 37.0-37.9, adult
CPT/HCPCS: 99204

== ENCOUNTER → 2024-05-20 11:12 | Outpatient (BNVA) | payer MEDICAID, SELFPAY | PROVIDERS: PCP Student in an Organized Health Care Education/Training Program; Visit Provider Surgery | DX: E66.9 Obesity, unspecified (principal); Z68.37 Body mass index [BMI] 37.0-37.9, adult | CPT/HCPCS: 99202 ==

== ENCOUNTER → 2024-05-23 09:08 | Day surgery (SDC) | payer MEDICAID, SELFPAY | LOC: HO.SSS 09:10 | PROVIDERS: PCP Student in an Organized Health Care Education/Training Program; Visit Provider Nurse Practitioner Family | DX: E11.22 Type 2 diabetes mellitus with diabetic chronic kidney disease (principal); Z53.20 Procedure and treatment not carried out because of patient's decision for unspecified reasons; I12.9 Hypertensive chronic kidney disease with stage 1 through stage 4 chronic kidney disease, or unspecified chronic kidney disease; N18.9 Chronic kidney disease, unspecified; N18.32 Chronic kidney disease, stage 3b; R80.9 Proteinuria, unspecified; D64.9 Anemia, unspecified ==

== ENCOUNTER 2024-06-03 13:12 | Outpatient (AMB) | payer OTHER, SELFPAY ==
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
--- OUTSIDE RECORDS SUMMARY | 2024-06-03 17:47 | XMS_ITS | Encounter Summary ---
Author Organization [facility] Address [address] [place] [address] Care Team Providers Care Maintenance Manager Name Role Phone SonalDepe Niko LOPEZ Primary Care Provider Reason for Visit * Reason Comments Medication Refill Encounter Details Date Type Department Care Team (Late st Contact Info) Description 07/03/2020 Refill [facility] Nutrition at [address] [address] Zena Hines PA [address] [place] [phone] Medication Refill Social History Tobacco Use Types Packs/Day Years Used Date Smoking Tobacco: Never Smokeless Tobacco: Never Alcohol Use Standard Drinks/Week Comments Never 0 (1 standard drink = 0.6 oz pur e alcohol) Humiliation, Afraid, Rape, and Kick questionnair e Answer Date Recorded Within the last year, have y ou been afraid of your partner or ex-partner? No 01/03/2020 Within the last year, have y ou been humiliated or emotionally abused in other ways by your partner or ex-partner? No Within the last year, have y ou been kicked, hit, slapped, or otherwise physically hurt by your partner or ex-partner? No 01/03/2020 Within the last year, have y ou been raped or forced to have any kind of sexual activity by your partner or ex-partner? No 01/03/2020 Social Connection and Isolation Panel [NHANES] A nswer Date Recorded In a typical week, how many times do you talk on the phone with family, friends, or neighbors? Never 01/03/20 20 How often do you get togethe r with friends or relatives? Never 01/03/2020 How often do you attend chur ch or latter day services? Never 01/03/2020 Do you belong to any clubs o r organizations such as denominational groups, unions, fraternal or athletic groups, or school groups? No 01/03/2020 How often do you attend meet ings of the clubs or organizations you belong to? Never 01/03/2020 Are you , , di vorced, , never , or living with a partner? Living with partner 01/03/2020 AUDIT-C Answer Date Recorded Frequency of Alcohol Consumption Never 12/10/2018 Average Number of Drinks Not on file 019 Frequency of Binge Drinking Not on file 09/2018 Overall Financial Resource Strain (CARDIA) Answe r Date Recorded How hard is it for you to pa y for the very basics like food, housing, medical care, and heating? Not very hard 01/03/2020 PHQ-2 Answer Date Recorded PHQ-2 Score 2 07/07/2020 [facility] - Occupational Stress Questionnaire Answer Date Recorded Do you feel stress - tense, restless, nervous, or anxious, or unable to sleep at night because your mind is troubled all the time - these days? To some extent 01/03/2020 Exercise Vital Sign Answer Date Recorde d On average, how many days pe r week do you engage in moderate to strenuous exercise (like a brisk walk)? 5 days 01/03/2020 On average, how many minutes do you engage in exercise at this level? 20 min 01/03/2020 Hunger Vital Sign Answer Date Recorded Within the past 12 months, y ou worried that your food would run out before you got the money to buy more. Sometimes true Within the past 12 months, t he food you bought just didn't last and you didn't have money to get more. Sometimes true PRAPARE - Transportation Answer Date Re corded In the past 12 months, has l ack of transportation kept you from medical appointments or from getting medications? No 12/07 In the past 12 months, has l ack of transportation kept you from meetings, work, or from getting things needed for daily living? No 01/03/2020 Housing Stability Answer Date Recorded Housing Stability I have a steady place to live 10/16/2019 Sex and Gender Information Value Date Recorded Sex Assigned at Male 12/10/2018 10:49 AM EDT Legal Sex Male 9:30 AM EST Gender Identity Male 12/10/2018 10:49 AM EDT Sexual Orientation Straight 12/10/2018 10 :49 AM EDT COVID-19 Exposure Response Date Recorded In the last month, have you been in contact with someone who was confirmed or suspected to have Coronavirus / COVID-19? No / Unsure 07/06/2020 9:36 AM EST documented as of this encounter Miscellaneous Notes * Telephone Encounter - Zena Hines PA - 07/03/2020 5:11 PM EST Refill request for Metformin received. Pt was engaging with [facility] and continues with PCP. Unclear that he's still on this. Rx sent to PCP for review. CCM: 2 minutes 07/03/2020 Zena Hines PA-C documented in this encounter Plan of Treatment Not on file documented as of this encounter Visit Diagnoses Not on filedocumented in this encounter Additional Health Concerns Infection Onset Date Last Indicated Resolved Time R/O Respiratory Virus 05/05/2021 05/05/20212020 7:18 PM EST R/O COVID-19 05/05/2021 05/05/2021 05/06/2021 1:22 PM EST R/O Respiratory Virus 05/05/2021 05/05/20212021 1:45 PM EST COVID-19 09/29/2021 09/29/2021 10/19/2021 7:19 PM EDT Assessment Noted Time PHQ-9 Depression Total Score: 0 03/13/20 10:41 AM EST documented as of this encounter Care Teams Maintenance Manager Relationship Specialty Start Date End Date Deep Pruitt APRN PCP - General 05/22/19 documented as of this encounter
--- OUTSIDE RECORDS SUMMARY | 2024-06-03 17:47 | XMS_ITS | Encounter Summary ---
Author Organization [employer] Address [address] [place] [address] Care Team Providers Care Cyanide Pot Tender Name Role Phone Katrin Santoyo MD Primary Care Pro vider Edison Vieira MD Unavailable [phone] Joe Devi MD Unavailable [phone] Reason for Visit * Reason Comments Med Refill Encounter Details Date Type Department Care Team (Late st Contact Info) Description 05/17/2024 Refill [facility] MEDICINE [address] [place], [place] [phone] Shanna Henao MD [address] [place], [place] [phone] Chronic radicular lumbar pain Social History Tobacco Use Types Packs/Day Years Used Date Smoking Tobacco: Never Passive Smoke Exposure: Never Smokeless Tobacco: Never Alcohol Use Standard Drinks/Week Comments Never 0 (1 standard drink = 0.6 oz pur e alcohol) Depression Answer Date Recorded Patient Health Questionnaire-9 Score 4 10/31/2023 Patient Health Questionnaire-9 Score 4 10/31/2023 Last PHQ-9: Questionnaire Data Not on file 0 10/31/2023 Housing Stability Answer Date Recorded What is your housing situation today? I have madelynmamadou schmitz 02/21/[address] you li ve. Do you have problems with any of the following? None of the above 02/21/2023 Food Insecurity Answer Date Recorded Within the past 12 months, y ou worried that your food would run out before you got money to buy more: Sometimes True 2022 Within the past 12 months,th e food you bought just didn't last and you didn't have enough money to get more: Sometimes True 02/21/2023 Transportation Answer Date Recorded In the past 12 months, has l ack of transportation kept you from medical appts, meetings, work or from getting things needed for daily living? Yes, it has kept me from medical appointments or getting medications. 06/06/2023 Utilities Answer Date Recorded In the past 12 months, has t he electric, gas, oil or water company threatened to shut off services in your home? No 06/06/2023 Depression Answer Date Recorded Patient Health Questionnaire-2 Score 2 10/31/2023 Sex and Gender Information Value Date Recorded Sex Assigned at Male 03/07/2022 10:30 AM EDT Legal Sex Male 10:30 AM EDT Gender Identity Male 11/07/2022 4:48 PM EDT Sexual Orientation Straight 11/07/2022 4: 48 PM EDT documented as of this encounter Plan of Treatment Upcoming Encounters Date Type Department Care Team (Late st Contact Info) Description 06/04/2024 11:00 AM EST Office Visit [facility] [address] [place] [address] documented as of this encounter Goals Goal Patient Goal Type Associated Problems Recent Progress Patient-Stated? Author Blood Pressure < 140/90 Blood Pressure 158/90(2023 10:23 AM EST) No Piers-Gambl e, Eve, PharmD Hemoglobin A1c < 7 Result Component 12.5(03/27/20 3:40 PM EST) No Piers-Gambl e, Eve, PharmD documented as of this encounter Visit Diagnoses Diagnosis Chronic radicular lumbar pain documented in this encounter Additional Health Concerns Assessment Noted Time PHQ-9 Depression Total Score: 4 10/31/19 10:32 AM EDT documented as of this encounter Care Teams Cyanide Pot Tender Relationship Specialty Start Date End Date Katrin Santoyo MD [address] [place] [address] PCP - General Internal Medicine 12/13/22 Edison Vieira MD [address] [place] [id number] Pulmonary Disease 04/07/24 Joe Devi MD [address] [place] [address] Gastroenterology 04/07/24 Carito Roche DNP [address], [address] [place] [address] Nephrology 04/07/24 [place] 04/11/24 documented as of this encounter
--- OUTSIDE RECORDS SUMMARY | 2024-06-03 17:47 | XMS_ITS | Encounter Summary ---
Author Organization [facility] Address [address] [place] [address] Care Team Providers Care Refund Clerk Name Role Phone Deep Pruitt APRN Primary Care Provider Reason for Visit * Reason Comments Medication Refill Encounter Details Date Type Department Care Team ([facility] st Contact Info) Description 06/07/2022 Refill [facility] [address] [place], [place] [phone] Deep Pruitt APRN [address] [place] [address] Medication Refill Social History Tobacco Use Types [...] or ex-partner? No 01/03/2020 Social Connection and Isolat ion Panel [NHANES] Answer Date Recorded In a typical week, how many times do you talk on the phone with family, friends, or neighbors? Never 05/19/2022 How often do you get togethe r with friends or relatives? Never 05/19/2022 How often do you attend chur ch or caodaism services? More than 4 times per year 05/19/2022 Do you belong to any clubs o r organizations such as baptist groups, unions, fraternal or athletic groups, or school groups? Yes 05/19/2022 How often do you attend meet ings of the clubs or organizations you belong to? Never 05/19/2022 Are you , , di vorced, , never , or living with a partner? Living with partner 05/19/2022 AUDIT-C Answer Date Recorded Q1: How often do you have a drink containing alc ohol? Never 11/18/2020 Average Number of Drinks Not on file 021 Frequency of Binge Drinking Not on file 11/05 Overall Financial Resource Strain (CARDIA) Answe r Date Recorded How hard is it for you to pa y for the very basics like food, housing, medical care, and heating? Not very hard 05/19/2022 PHQ-2 Answer Date Recorded PHQ-2 Total Score 2 02/17/2022 [facility]at ional Health - Occupational Stress Questionnaire Answer Date Recorded Do you feel stress - tense, restless, nervous, or anxious, or unable to sleep at night because your mind is troubled all the time - these days? To some extent 05/19/2022 Exercise Vital Sign Answer Date Recorde d [...] you got the money to buy more. Never true 05/19/19 23 Within the past 12 months, t he food you bought just didn't last and you didn't have money to get more. Never true 05/19/2022 PRAPARE - Transportation Answer Date Re corded In the past 12 months, has l ack of transportation kept you from medical appointments or from getting medications? No 05/08 In the past 12 months, has l ack of transportation kept you from meetings, work, or from getting things needed for daily living? No 05/19/2022 Housing Stability Answer Date Recorded What is your living situation today? I have a [facility] place to live 05/19/2022 Sex and Gender Information Value Date Recorded Sex Assigned at Male 12/10/2018 10:49 AM EDT Legal Sex Male 9:30 AM EST Gender Identity Male 12/10/2018 10:49 AM EDT Sexual Orientation Straight 12/10/2018 10 :49 AM EDT documented as of this encounter Plan of Treatment Not on file documented as of this encounter Visit Diagnoses Diagnosis Hyperlipidemia associated with type 2 diabetes mellitus (HC Code) documented in this encounter Additional Health Concerns Assessment Noted Time PHQ-9 Depression Total Score: 2 02/18/20 22 4:19 PM EDT documented as of this encounter Care Teams Refund Clerk Relationship Specialty Start Date End Date Deep Pruitt APRN PCP - General 05/22/19 documented as of this encounter
--- OUTSIDE RECORDS SUMMARY | 2024-06-03 17:47 | XMS_ITS | Encounter Summary ---
Author Organization [facility] Address [address] [place] [address] Care Team Providers Care Infrastructure Tech Name Role Phone Deep Pruitt APRN Primary Care Provider Reason for Visit * Reason Comments Medication Refill Encounter Details Date Type Department Care Team ([facility] st Contact Info) Description 06/19/2020 Refill [facility] [address] [place] [address] Deep Pruitt APRN [address] [place] [phone] Medication Refill Social History Tobacco Use [...] often do you attend chur ch or denominational services? Never 01/03/2020 Do you belong to any clubs o r organizations such as sikhism groups, unions, fraternal or athletic groups, or [...] 01/03/2020 PHQ-2 Answer Date Recorded PHQ-2 Score 0 03/13/2020 [facility] of Occupat ional Health - Occupational Stress [...] AM EDT documented as of this encounter Miscellaneous Notes * Telephone Encounter - Rosalina Bhardwaj RN - 06/19/2020 1:19 PM EST Rx request too soon documented in this encounter Plan of Treatment Not on file documented as of this encounter Visit Diagnoses Diagnosis Asthma exacerbation, mild Unspecified asthma, with exacerbation documented in this encounter Additional Health Concerns Infection Onset Date Last Indicated Resolved Time R/O Respiratory Virus 05/05/2021 05/05/20212020 7:18 PM EST R/O COVID-19 05/05/2021 05/05/2021 05/06/2021 1:22 PM EST R/O Respiratory Virus 05/05/2021 05/05/20212021 1:45 PM EST COVID-19 09/29/2021 09/29/2021 10/19/2021 7:19 PM EDT Assessment Noted Time PHQ-9 Depression Total Score: 0 03/13/20 20 10:41 AM EST documented as of this encounter Care Teams Infrastructure Tech Relationship Specialty Start Date End Date Deep Pruitt APRN PCP - General 05/22/19 documented as of this encounter
--- OUTSIDE RECORDS SUMMARY | 2024-06-03 17:47 | XMS_ITS | Encounter Summary ---
Author Organization [facility] Address [address] [place] [address] Care Team Providers Care Nickel Plant Operator Name Role Phone Deep Pruitt APRN Primary Care Provider Reason for Visit * Reason Comments Medication Refill Encounter Details Date Type Department Care Team ([facility] st Contact Info) Description 05/27/2020 Telephone [facility] [address] [place] [address] Deep Pruitt APRN [address] [place] [address] Medication Refill Social History Tobacco [...] often do you attend chur ch or jehovah's witness services? Never 01/03/2020 Do you belong to any clubs o r organizations such as caodaism groups, unions, fraternal or athletic groups, or [...] Answer Date Recorded PHQ-2 Score 0 03/13/2020 [facility] of Occupat ional Health - Occupational Stress [...] or suspected to have Coronavirus / COVID-19? Unable to assess 05/14/2020 8:56 AM EST documented as of this encounter Miscellaneous Notes * Telephone Encounter - Krystle Santos RN - 05/28/2020 9:01 AM EST Pt scheduled with PCP today for virtual visit CCM: 1 minute 05/28/2020 Krystle Santos RN * Telephone Encounter - Meagan Baez - 05/27/2020 12:01 PM EST Patient is requesting refill for several medications patient doesn't know the name of medications and request someone calls him at [phone] documented in this encounter Plan of Treatment [...] documented as of this encounter Care Teams Nickel Plant Operator Relationship Specialty Start Date End Date Deep Pruitt APRN PCP - General 05/22/19 documented as of this encounter
--- OUTSIDE RECORDS SUMMARY | 2024-06-03 17:47 | XMS_ITS | Encounter Summary ---
Author Organization [facility] Address [address] [place] [address] Care Team Providers Care Site Safety Manager Name Role Phone Deep Pruitt APRN Primary Care Provider Reason for Visit * Reason Comments Medication Refill Encounter Details Date Type Department Care Team ([facility] st Contact Info) Description 05/13/2020 Refill [facility] [address] [place], [place] [phone] Deep Pruitt APRN [address] [place] [address] Medication Refill Social History Tobacco [...] often do you attend chur ch or taoist services? Never 01/03/2020 Do you belong to any clubs o r organizations such as holiness groups, unions, fraternal or athletic groups, or [...] Answer Date Recorded PHQ-2 Score 0 03/13/2020 [facility] [place] of Occupat ional Health - Occupational Stress [...] AM EST documented as of this encounter Plan of [...] documented as of this encounter Care Teams Site Safety Manager Relationship Specialty Start Date End Date Deep Pruitt APRN PCP - General 05/22/19 documented as of this encounter
--- OUTSIDE RECORDS SUMMARY | 2024-06-03 17:47 | XMS_ITS | Encounter Summary ---
Author Organization [facility] Address [address] [place] [address] Care Team Providers Care Preconstruction Manager Name Role Phone Deep Pruitt APRN Primary Care Provider Reason for Visit * Reason Comments Medication Refill Encounter Details Date Type Department Care Team ([facility] st Contact Info) Description 07/29/2020 Refill [facility] [address] [place], [place] [phone] Deep Pruitt, JOHN [address] [place] [phone] Medication Refill Social History Tobacco Use [...] often do you attend chur ch or temple services? Never 01/03/2020 Do you belong to any clubs o r organizations such as sabianist groups, unions, fraternal or athletic groups, or [...] Answer Date Recorded PHQ-2 Score 2 07/07/2020 [facility] of Occupat ional [facility] - Occupational Stress Questionnaire Answer Date Recorded [...] have Coronavirus / COVID-19? No / Unsure 07/28/2020 9:06 AM EDT documented as of this encounter Plan of Treatment Not on file documented as of this encounter Visit Diagnoses Diagnosis Hyperlipidemia associated with type 2 diabetes mellitus (HC Code) Essential hypertension, benign documented in this encounter Additional Health Concerns Infection Onset Date Last Indicated Resolved Time R/O Respiratory Virus 05/05/2021 05/05/20212020 7:18 PM EST R/O COVID-19 05/05/2021 05/05/2021 05/06/2021 1:22 PM EST R/O Respiratory Virus 05/05/2021 05/05/20212021 1:45 PM EST COVID-19 09/29/2021 09/29/2021 10/19/2021 7:19 PM EDT Assessment Noted Time PHQ-9 Depression Total Score: 2 07/08/19 21 2:15 PM EST documented as of this encounter Care Teams Preconstruction Manager Relationship Specialty Start Date End Date Deep Pruitt APRN PCP - General 05/22/19 documented as of this encounter
--- OUTSIDE RECORDS SUMMARY | 2024-06-03 17:47 | XMS_ITS | Encounter Summary ---
Author Organization [facility] Address [address] [place] [address] Care Team Providers Care Roustabout Pusher Name Role Phone Deep Pruitt APRN Primary Care Provider Encounter Details Date Type Department Care Team (Late st Contact Info) Description 06/11/[address] [facility] [address] [facility], 2nd floor [facility], [address] [place], [place] [phone] Isha Brown APRN [address] [place] [address] Social History Tobacco Use Types Packs/Day Years [...] often do you attend chur ch or muslim services? Never 01/03/2020 Do you belong to any clubs o r organizations such as catholic groups, unions, fraternal or athletic groups, or school groups? No 01/03/2020 How often do you attend meet ings of the clubs or organizations you belong to? Never 01/03/2020 Are you , , di vorced, , never , or living with a partner? Living with partner 01/03/2020 AUDIT-C Answer Date Recorded Q1: How often [...] hard 01/03/2020 PHQ-2 Answer Date Recorded PHQ-2 Total Score 3 05/31/2021 [facility] of Occupat ional Health - Occupational [...] have Coronavirus / COVID-19? No / Unsure 05/31/2021 1:12 PM EST documented as of this encounter Plan of Treatment Not on file documented as of this encounter Visit Diagnoses Not on filedocumented in this encounter Additional Health Concerns Infection Onset Date Last Indicated Resolved Time COVID-19 09/29/2021 09/29/2021 10/19/2021 7:19 PM EDT Assessment Noted Time PHQ-9 Depression Total Score: 5 05/31/19 22 1:13 PM EST documented as of this encounter Care Teams Roustabout Pusher Relationship Specialty Start Date End Date Deep Pruitt APRN PCP - General 05/22/19 documented as of this encounter
--- OUTSIDE RECORDS SUMMARY | 2024-06-03 17:47 | XMS_ITS | Encounter Summary ---
Author Organization [facility] Address [address] [place] [address] Care Team Providers Care Account Installation Specialist Name Role Phone Deep Pruitt APRN Primary Care Provider [phone] Reason for Visit * Reason Comments Other Encounter Details Date Type Department Care Team ([facility] Contact Info) Description 05/19/2020 Telephone [facility] [address] [place] [address] Deep Pruitt APRN [address] [place] [address] Other Social History Tobacco Use Types Packs/Day Years [...] often do you attend chur ch or samaritan services? Never 01/03/2020 Do you belong to any clubs o r organizations such as hinduism groups, unions, fraternal or athletic groups, or [...] Answer Date Recorded PHQ-2 Score 0 03/13/2020 [facility] Occupat ional Health - [...] encounter Miscellaneous Notes * Telephone Encounter - Milena Dial LPN - 05/19/2020 4:44 PM EST Pt contacted in regards to gout. Pt stated he was on a call with provider when the call dropped. Ptstated he is worried about a f/u and increased pain in joel. Legs. Pt asked about pain and stated pain level a 9/10, with the Left leg hurting more. Pt asked about swelling, pt stated increased swelling to BLE. Pt would like Provider to contact back. CCM: 10 minutes 05/19/2020 Milena Dial LPN * Telephone Encounter - Poonam Quiroga - 05/19/2020 11:04 AM EST Patient Sissy called and stated the patient would like to speak with his pcp Deep in regards to his gout, call back number is [phone] documented in this encounter Plan of Treatment [...] documented as of this encounter Care Teams Account Installation Specialist Relationship Specialty Start Date End Date Deep Pruitt APRN PCP - General 05/22/19 documented as of this encounter
--- OUTSIDE RECORDS SUMMARY | 2024-06-03 17:47 | XMS_ITS | Encounter Summary ---
Author Organization [facility] Address [address] [place] [address] Care Team Providers Care Senior J2Ee Developer Name Role Phone Deep Pruitt APRN Primary Care Provider Reason for Visit * Reason Comments Medication Refill Encounter Details Date Type Department Care Team ([facility] st Contact Info) Description 06/30/2021 Refill [facility] [address] [place], [place] [phone] Deep Pruitt APRN [address] [place] [address] Medication Refill Social History Tobacco [...] often do you attend chur ch or adventist services? Never 01/03/2020 Do you belong to any clubs o r organizations such as spiritism groups, unions, fraternal or athletic groups, or [...] Date Recorded PHQ-2 Total Score 3 05/31/2021 [facility] of Occupat ional Health - [...] have Coronavirus / COVID-19? No / Unsure 06/15/2021 10:27 AM EST documented as of this encounter [...] documented as of this encounter Care Teams Senior J2Ee Developer Relationship Specialty Start Date End Date Deep Pruitt APRN PCP - General 05/22/19 documented as of this encounter
--- OUTSIDE RECORDS SUMMARY | 2024-06-03 17:47 | XMS_ITS | Encounter Summary ---
Author Organization [facility] Address [address] [place] [address] Care Team Providers Care Agricultural Economics Professor Name Role Phone Sonal Deep Niko LOPEZ Primary Care Provider [phone] Reason for Visit * Reason Comments Medication Refill Encounter Details Date Type Department Care Team ([facility] st Contact Info) Description 05/05/2021 Refill [facility] [address] [place] [phone] Aliya Pond, [address] [address] Medication Refill Social History Tobacco Use [...] often do you attend chur ch or sabianist services? Never 01/03/2020 Do you belong to any clubs o r organizations such as amish groups, unions, fraternal or athletic groups, or [...] PHQ-2 Answer Date Recorded PHQ-2 Total Score 0 04/21/2021 [facility] - Occupational Stress Questionnaire Answer [...] have Coronavirus / COVID-19? No / Unsure 05/03/2021 9:35 AM EST documented as of this encounter [...] Noted Time PHQ-9 Depression Total Score: 0 04/21/20 21 1:31 PM EST documented as of this encounter Care Teams Agricultural Economics Professor Relationship Specialty Start Date End Date eDep Pruitt APRN PCP - General 05/22/19 documented as of this encounter
--- OUTSIDE RECORDS SUMMARY | 2024-06-03 17:47 | XMS_ITS | Encounter Summary ---
Author Organization [facility] Address [address] [place] [address] Care Team Providers Care Head Of Merchandise Buying Name Role Phone Deep Pruitt JOHN Primary Care Provider Reason for Visit * Reason Comments Medication Refill Encounter Details Date Type Department Care Team (Late st Contact Info) Description 07/20/[address] [facility] Podiatry at [address] [place] [phone] Arben Fountain, NOLVIA [address] [place] [address] Medication Refill Social History Tobacco Use Types [...] often do you attend chur ch or episcopalian services? Never 01/03/2020 Do you belong to any clubs o r organizations such as roman catholic groups, unions, fraternal or athletic groups, [...] Answer Date Recorded PHQ-2 Score 2 07/07/2020 [facility] Occupat ional Health - [...] have Coronavirus / COVID-19? No / Unsure 07/08/2020 8:43 AM EST documented as of this encounter [...] documented as of this encounter Care Teams Head Of Merchandise Buying Relationship Specialty Start Date End Date Deep Pruitt APRN PCP - General 05/22/19 documented as of this encounter
--- OUTSIDE RECORDS SUMMARY | 2024-06-03 17:47 | XMS_ITS | Encounter Summary ---
Author Organization [facility] Address [address] [place] [address] Care Team Providers Care Operating System Designer Name Role Phone Sonal Deep Niko LOPEZ Primary Care Provider [phone] Reason for Visit * Reason Comments Medication Refill Encounter Details Date Type Department Care Team ([facility] st Contact Info) Description 05/10/2021 Refill [facility] [address] [place] [phone] Aliya Pond, [address] [address] Medication Refill Social History Tobacco [...] often do you attend chur ch or rastafarian services? Never 01/03/2020 Do you belong to any clubs o r organizations such as pentecostal groups, unions, fraternal or athletic groups, or [...] Date Recorded PHQ-2 Total Score 0 04/21/2021 [facility] - Occupational Stress Questionnaire [...] Indicated Resolved Time R/O Respiratory Virus 05/05/2021 05/05/20212021 1:45 PM EST COVID-19 09/29/2021 09/29/2021 10/19/2021 7:19 PM EDT Assessment Noted Time PHQ-9 Depression Total Score: 0 04/21/20 21 1:31 PM EST documented as of this encounter Care Teams Operating System Designer Relationship Specialty Start Date End Date Deep Pruitt APRN PCP - General 05/22/19 documented as of this encounter
--- OUTSIDE RECORDS SUMMARY | 2024-06-03 17:47 | XMS_ITS | Encounter Summary ---
Author Organization [facility] Address [address] [place] [address] Care Team Providers Care Strategic Debriefing Officer Name Role Phone Deep Pruitt APRN Primary Care Provider Reason for Visit * Reason Comments Medication Refill Encounter Details Date Type Department Care Team ([facility] st Contact Info) Description 07/10/2020 Refill [facility] [address] [place] [address] Deep Pruitt APRN [address] [place] [phone] Medication Refill Social History Tobacco Use [...] often do you attend chur ch or rastafari services? Never 01/03/2020 Do you belong to any clubs o r organizations such as voodoo groups, unions, fraternal or athletic groups, or [...] Answer Date Recorded PHQ-2 Score 2 07/07/2020 [facility] of Occupat ional [facility] - Occupational Stress Questionnaire Answer Date Recorded [...] as of this encounter Visit Diagnoses Diagnosis Essential hypertension Unspecified essential hypertension documented in this encounter Additional Health Concerns [...] documented as of this encounter Care Teams Strategic Debriefing Officer Relationship Specialty Start Date End Date Deep Pruitt APRN PCP - General 05/22/19 documented as of this encounter
--- OUTSIDE RECORDS SUMMARY | 2024-06-03 17:47 | XMS_ITS | Encounter Summary ---
Author Organization [facility] Address [address] [place] [address] Care Team Providers Care Cable Lacer Name Role Phone Deep Pruitt APRN Primary Care Provider Reason for Visit * Reason Comments Medication Refill Encounter Details Date Type Department Care Team (Late st Contact Info) Description 06/19/2020 Refill [facility] [address] [place], [place] [phone] Janel Cummins APRN [address] [place] [phone] Medication Refill Social History Tobacco Use Types [...] often do you attend chur ch or zoroastrianism services? Never 01/03/2020 Do you belong to any clubs o r organizations such as lutheran groups, unions, fraternal or athletic groups, or [...] Answer Date Recorded PHQ-2 Score 0 03/13/2020 [facility] of Occupat ional Health [...] as of this encounter Visit Diagnoses Diagnosis Neuropathy due to type 2 diabetes mellitus (HC Code) (HC CODE) (HC Code) documented in this encounter Additional [...] documented as of this encounter Care Teams Cable Lacer Relationship Specialty Start Date End Date Deep Pruitt APRN PCP - General 05/22/19 documented as of this encounter
--- OUTSIDE RECORDS SUMMARY | 2024-06-03 17:47 | XMS_ITS | Encounter Summary ---
Author Organization [facility] Address [address] [place] [address] Care Team Providers Care Door Closer Name Role Phone Deep Pruitt APRN Primary Care Provider Reason for Visit * Reason Comments DME Encounter Details Date Type Department Care Team ([facility] st Contact Info) Description 05/04/2022 Documentation Sleep Medicine Program at [address] [place] [phone] Jarad De Leon MD [address] [place] [phone] Social History Tobacco Use Types Packs/Day Years [...] often do you attend chur ch or moravian services? Never 01/03/2020 Do you belong to any clubs o r organizations such as confucianist groups, unions, fraternal or athletic groups, or [...] Date Recorded PHQ-2 Total Score 2 02/17/2022 [facility] of Occupat ional Health - [...] filedocumented in this encounter Additional Health Concerns Assessment Noted Time PHQ-9 Depression Total Score: 2 02/18/20 22 4:19 PM EDT documented as of this encounter Care Teams Door Closer Relationship Specialty Start Date End Date Deep Pruitt APRN PCP - General 05/22/19 documented as of this encounter
--- OUTSIDE RECORDS SUMMARY | 2024-06-03 17:47 | XMS_ITS | Encounter Summary ---
Author Organization [employer] Address [address] [facility] 7t [place] [address] Care Team Providers Care Grain Spouter Name Role Phone Katrin Santoyo MD Primary Care Pro vider Edison Vieira MD Unavailable [phone] Joe Devi MD Unavailable [phone] Reason for Visit * Reason Onset Date Comments Durable Medical Equipment 11/08/2023 Encounter Details Date Type Department Care Team (Late st Contact Info) Description 11/08/2023 Telephone [facility] [address] [place], [place] [phone] Katrin Santoyo MD [address] [place], [place] [phone] Durable Medical Equipment Social History Tobacco Use Types Packs/Day Years [...] is your housing situation today? I have madelyn schmitz 02/21/[address] [...] PM EDT documented as of this encounter Miscellaneous Notes * Telephone Encounter - Luis Viera RN - 11/10/2023 11:01 AM EDT Call placed to [employer] spoke to Zhen who was informed on 10/31/23 we faxed over RX with the qty on it. He reports that what they need is the letter of medical necessity not the Rx. He reports he will fax it to [facility] at [phone] and once signed and faxed back it will be all set. Awaiting do cument. * Telephone Encounter - Mauricio Taylor - 11/08/2023 3:57 PM EDT Tc from Tanya at [email or web address] line calling to report the DME is missing the quantity and the description please sign and refax documented in this encounter Plan of Treatment Upcoming Encounters Date Type Department Care Team (Late st Contact Info) Description 06/04/2024 11:00 AM EST [facility] [address] [place] [phone] documented as of this encounter Goals Goal Patient Goal Type Associated Problems Recent Progress Patient-Stated? Author Blood Pressure < 140/90 Blood Pressure 158/90(2023 10:23 AM EST) No Eve Guzman PharmD Hemoglobin A1c < 7 Result Component 12.5(03/27/20 3:40 PM EST) No Eve Guzman PharmD documented as of this encounter Visit Diagnoses Not on filedocumented in this encounter Additional Health Concerns Assessment Noted Time PHQ-9 Depression Total Score: 4 10/31/19 10:32 AM EDT documented as of this encounter Care Teams Grain Spouter Relationship Specialty Start Date End Date Katrin Santoyo MD [address] [place] [address] PCP - General Internal Medicine 12/13/22 Edison Vieira MD [address] [place] [address] Pulmonary Disease 04/07/24 Joe Devi MD 11 [facility] 3rd [place] [address] Gastroenterology 04/07/24 Carito Roche DNP 10 [facility], [address] [place] [address] Nephrology 04/07/24 [employer] 04/11/24 documented as of this encounter
--- OUTSIDE RECORDS SUMMARY | 2024-06-03 17:47 | XMS_ITS | Encounter Summary ---
Author Organization [facility] Address [address] [place] [address] Care Team Providers Care Legal Coordinator Name Role Phone Deep Pruitt APRN Primary Care Provider Encounter Details Date Type Department Care Team ([facility] st Contact Info) Description 06/13/2020 Scanned Document [facility] [address] [place], [place] [phone] Deep Pruitt APRN [address] [place] [address] Social History Tobacco Use Types Packs/Day Years [...] often do you attend chur ch or church services? Never 01/03/2020 Do you belong to any clubs o r organizations such as jainism groups, unions, fraternal or athletic groups, or [...] Answer Date Recorded PHQ-2 Score 0 03/13/2020 [facility] [place] of Occupat ional Health - Occupational Stress [...] documented as of this encounter Care Teams Legal Coordinator Relationship Specialty Start Date End Date Deep Pruitt APRN PCP - General 05/22/19 documented as of this encounter
--- OUTSIDE RECORDS SUMMARY | 2024-06-03 17:47 | XMS_ITS | Encounter Summary ---
Author Organization [facility] Address [address] [place] [address] Care Team Providers Care Patient Flow Coordinator Name Role Phone Sonal Deep Niko LOPEZ Primary Care Provider [phone] Reason for Visit * Reason Comments Medication Refill Encounter Details Date Type Department Care Team ([facility] st Contact Info) Description 05/03/[address] [facility] [address] [place] [phone] Aliya Pond, [address] [address] Medication Refill Social History Tobacco [...] often do you attend chur ch or zoroastrian services? Never 01/03/2020 Do you belong to any clubs o r organizations such as mandaeism groups, unions, fraternal or athletic groups, or [...] Date Recorded PHQ-2 Total Score 0 04/21/2021 [facility] - [...] documented as of this encounter Care Teams Patient Flow Coordinator Relationship Specialty Start Date End Date Deep Pruitt APRN PCP - General 05/22/19 documented as of this encounter
--- OUTSIDE RECORDS SUMMARY | 2024-06-03 17:47 | XMS_ITS | Encounter Summary ---
Author Organization [employer] Address [address] [facility] 7t [place] [address] Care Team Providers Care Luster Repairer Name Role Phone Katrin Santoyo MD Primary Care Pro vider Edison Vieira MD Unavailable [phone] Joe Devi MD Unavailable [phone] Reason for Visit * Reason Comments Med Refill Encounter Details Date Type Department Care Team ([facility] st Contact Info) Description 05/12/2024 Refill [facility] [address] [place] [phone] Katrin Santoyo MD [address] [place] [address] Social History Tobacco Use Types Packs/Day Years [...] Description 06/04/2024 11:00 AM EST Office Visit [facility] MEDICINE [address] [place] [address] documented as of this encounter Goals Goal [...] documented as of this encounter Care Teams Luster Repairer Relationship Specialty Start Date End Date Katrin Santoyo MD [address] [place] [address] PCP - General Internal Medicine 12/13/22 Edison Vieira MD [address] [place] [address] Pulmonary Disease 04/07/24 Joe Devi MD [address] 3rd [place] [address] Gastroenterology 04/07/24 Carito Roche DNP [address], [address] [place] [address] Nephrology 04/07/24 [employer] 04/11/24 documented as of this encounter
--- OUTSIDE RECORDS SUMMARY | 2024-06-03 17:47 | XMS_ITS | Encounter Summary ---
Author Organization [facility] Address [address] [place] [address] Care Team Providers Care Gym Supervisor Name Role Phone Deep Pruitt JOHN Primary Care Provider [phone] Reason for Visit * Reason Comments Medication Refill Encounter Details Date Type Department Care Team (Late st Contact Info) Description 05/06/[address] [facility] Podiatry at [address] [place] [phone] Arben Fountain, [address] [place] [address] Medication Refill Social History Tobacco Use [...] often do you attend chur ch or methodist services? Never 01/03/2020 Do you belong to any clubs o r organizations such as mormon groups, unions, fraternal or athletic groups, or [...] Date Recorded PHQ-2 Total Score 0 04/21/2021 [facility] - Occupational Stress Questionnaire Answer Date [...] documented as of this encounter Care Teams Gym Supervisor Relationship Specialty Start Date End Date Deep Pruitt APRN PCP - General 05/22/19 documented as of this encounter
--- OUTSIDE RECORDS SUMMARY | 2024-06-03 17:47 | XMS_ITS | Encounter Summary ---
Author Organization [employer] Address [address] [facility] [address] 7t [place] [address] Care Team Providers Care Spare Parts Clerk Name Role Phone Katrin Santoyo MD Primary Care Pro vider Edison Vieira MD Unavailable [phone] oJe Devi MD Unavailable [phone] Reason for Visit * Reason Comments Med Refill Encounter Details Date Type Department Care Team ([facility] st Contact Info) Description 05/17/2024 Refill [facility] MEDICINE [address] [place] [address] Moriah Herbert FNP [address] [place] [address] Chronic radicular lumbar pain Social History Tobacco [...] Description 06/04/2024 11:00 AM EST Office Visit [facility] MEDICINE [address] [place] [address] documented as of this encounter Goals Goal [...] documented as of this encounter Care Teams Spare Parts Clerk Relationship Specialty Start Date End Date Katrin Santoyo MD [address] [place] [address] PCP - General Internal Medicine 12/13/22 Edison Vieira MD [address] [place] [address] Pulmonary Disease 04/07/24 Joe Devi MD [address] 3rd [place] [address] Gastroenterology 04/07/24 Carito Roche DNP [address], [address] [place] [address] Nephrology 04/07/24 [employer] 04/11/24 documented as of this encounter
--- OUTSIDE RECORDS SUMMARY | 2024-06-03 17:47 | XMS_ITS | Encounter Summary ---
Author Organization [facility] Address [address] [place] [address] Care Team Providers Care Meat Boner Name Role Phone Deep Pruitt APRN Primary Care Provider Encounter Details Date Type Department Care Team ([facility] st Contact Info) Description 06/25/2021 Telephone [facility] [address] [place] [address] Deep Pruitt APRN [address] [place] [address] Social History Tobacco Use Types [...] often do you attend chur ch or gnosticist services? Never 01/03/2020 Do you belong to any clubs o r organizations such as anglican groups, unions, fraternal or athletic groups, or [...] Date Recorded PHQ-2 Total Score 3 05/31/2021 [facility] of Occupat ional Health - Occupational [...] documented as of this encounter Care Teams Meat Boner Relationship Specialty Start Date End Date Deep Pruitt APRN PCP - General 05/22/19 documented as of this encounter
--- OUTSIDE RECORDS SUMMARY | 2024-06-03 17:47 | XMS_ITS | Encounter Summary ---
Author Organization [facility] Address [address] [place] [address] Care Team Providers Care It Programmer Analyst Name Role Phone Deep Pruitt APRN Primary Care Provider [phone] Reason for Visit * Reason Comments Other Encounter Details Date Type Department Care Team ([facility] Contact Info) Description 05/24/2022 Telephone [facility] [address] [place] [address] Deep Pruitt APRN [address] [place] [phone] Other Social History Tobacco Use Types [...] often do you attend chur ch or presybeterian services? More than 4 times per year 05/19/2022 Do you belong to any clubs o r organizations such as quaker groups, unions, fraternal or athletic groups, or [...] Date Recorded PHQ-2 Total Score 2 02/17/2022 [facility] - Occupational Stress Questionnaire Answer Date [...] your living situation today? I have a [facility] place to live 05/19/2022 Sex and Gender Information Value Date Recorded Sex Assigned at Male 12/10/2018 10:49 AM EDT Legal Sex Male 9:30 AM EST Gender Identity Male 12/10/2018 10:49 AM EDT Sexual Orientation Straight 12/10/2018 10 :49 AM EDT documented as of this encounter Miscellaneous Notes * Telephone Encounter - Anton Villagran - 05/24/2022 10:38 AM EST Patient best call back number [phone]. Patient has an upcoming appt with his provider 06/23 and would like an earlier day then before 05/31 which was mentioned to him. Patient would like a call back from his provider per. documented in this encounter Plan of Treatment Not on file documented as of this encounter Visit Diagnoses Not on filedocumented in this encounter Additional Health Concerns Assessment Noted Time PHQ-9 Depression Total Score: 2 02/18/20 22 4:19 PM EDT documented as of this encounter Care Teams It Programmer Analyst Relationship Specialty Start Date End Date Deep Pruitt APRN PCP - General 05/22/19 documented as of this encounter
--- OUTSIDE RECORDS SUMMARY | 2024-06-03 17:47 | XMS_ITS | Encounter Summary ---
Author Organization [facility] Address [address] [place] [address] Care Team Providers Care Insurance Loss Control Surveyor Name Role Phone Deep Pruitt JOHN Primary Care Provider Reason for Visit * Reason Comments Medication Refill Encounter Details Date Type Department Care Team (Late st Contact Info) Description 05/12/2021 Refill [facility] Podiatry at [address] [place] [address] [phone] Arben Fountain, N[address] [place] [address] Medication Refill Social History Tobacco Use [...] often do you attend chur ch or lutheran services? Never 01/03/2020 Do you belong to [...] Date Recorded PHQ-2 Total Score 0 04/21/2021 [facility] - Occupational Stress Questionnaire Answer Date [...] documented as of this encounter Care Teams Insurance Loss Control Surveyor Relationship Specialty Start Date End Date Deep Pruitt APRN PCP - General 05/22/19 documented as of this encounter
--- OUTSIDE RECORDS SUMMARY | 2024-06-03 17:47 | XMS_ITS | Encounter Summary ---
Author Organization [employer] Address [address] [facility] [address] 7t [place] [address] Care Team Providers Care Accounts Payable Manager Name Role Phone Katrin Santoyo MD Primary Care Pro vider Edison Vieira MD Unavailable [phone] Joe Devi MD Unavailable [phone] Reason for Visit * Reason Comments Med Refill Encounter Details Date Type Department Care Team ([facility] st Contact Info) Description 02/11/2024 Refill [facility] [address] [place] [address] Moriah Herbert FNP [address] [place] [address] Chronic radicular lumbar pain Social History Tobacco [...] Description 06/04/2024 11:00 AM EST Office Visit [facility] [address] [place] [address] documented as of this encounter Goals Goal [...] documented as of this encounter Care Teams Accounts Payable Manager Relationship Specialty Start Date End Date Katrin Santoyo MD [address] [place] [address] PCP - General Internal Medicine 12/13/22 Edison Vieira MD [address] [place] [address] Pulmonary Disease 04/07/24 Joe Devi MD [address] 3rd [place] [address] Gastroenterology 04/07/24 Carito Roche DNP [address], [address] [place] [address] Nephrology 04/07/24 [employer] 04/11/24 documented as of this encounter
--- OUTSIDE RECORDS SUMMARY | 2024-06-03 17:47 | XMS_ITS | Encounter Summary ---
Author Organization [facility] Address [address] [place] [address] Care Team Providers Care Sprinkling Truck Driver Name Role Phone SonalDeep Niko LOPEZ Primary Care Provider Reason for Visit * Reason Comments Medication Refill Encounter Details Date Type Department Care Team (Late st Contact Info) Description 05/12/2020 Refill [facility] Nutrition at [address] [address] Zena Hines PA [address] [place] [address] Medication Refill Social History Tobacco Use [...] often do you attend chur ch or yazidi services? Never 01/03/2020 Do you belong to any clubs o r organizations such as pentecostalism groups, unions, fraternal or athletic groups, or [...] Answer Date Recorded PHQ-2 Score 0 03/13/2020 [facility] of Occupat ional Health - Occupational [...] encounter Miscellaneous Notes * Telephone Encounter - Katrin Yang - 05/12/2020 2:10 PM EST Isha Pike Please review pt no longer seeing [facility] Wellness Dept for DM management. Katrin Sullivan documented in this encounter Plan of Treatment Not on file documented as of this encounter Visit Diagnoses Diagnosis Type 2 diabetes mellitus with diabetic polyneuropathy, with long-term current use of insulin (HC Code) documented in this encounter Additional [...] documented as of this encounter Care Teams Sprinkling Truck Driver Relationship Specialty Start Date End Date Deep Pruitt APRN PCP - General 05/22/19 documented as of this encounter
--- OUTSIDE RECORDS SUMMARY | 2024-06-03 17:47 | XMS_ITS | Encounter Summary ---
Author Organization [facility] Address [address] [place] [address] Care Team Providers Care Scientific Artist Name Role Phone Deep Pruitt APRN Primary Care Provider Reason for Visit * Reason Comments Medication Refill Encounter Details Date Type Department Care Team ([facility] st Contact Info) Description 06/19/2020 Refill [facility] [address] [place] [address] Deep Pruitt APRN [address] [place] [phone] Medication Refill Social History Tobacco Use [...] often do you attend chur ch or confucianist services? Never 01/03/2020 Do you belong to any clubs o r organizations such as gnosticism groups, unions, fraternal or athletic groups, or [...] Answer Date Recorded PHQ-2 Score 0 03/13/2020 [facility] of Occupat ional Health - Occupational [...] PM EST R/O COVID-19 05/05/2021 05/05/2021 05/06/2021 1:2 2 PM EST R/O Respiratory Virus 05/05/2021 05/05/20212021 1:45 PM EST COVID-19 09/29/2021 09/29/2021 10/19/2021 7:19 PM EDT Assessment Noted Time PHQ-9 Depression Total Score: 0 03/13/20 20 10:41 AM EST documented as of this encounter Care Teams Scientific Artist Relationship Specialty Start Date End Date Deep Pruitt APRN PCP - General 05/22/19 documented as of this encounter
--- OUTSIDE RECORDS SUMMARY | 2024-06-03 17:47 | XMS_ITS | Encounter Summary ---
Author Organization [facility] Address [address] [place] [address] Care Team Providers Care Behavioral Intervention Specialist Name Role Phone Deep Pruitt APRN Primary Care Provider Reason for Visit * Reason Comments Forms Encounter Details Date Type Department [facility] Description 06/16/2020 Telephone [facility] [address] [place] [address] Deep Pruitt APRN [address] [place] [phone] Forms Social History Tobacco Use Types Packs/Day Years [...] any clubs o r organizations such as bahai groups, unions, fraternal or athletic groups, or [...] encounter Miscellaneous Notes * Telephone Encounter - Renetta Motta RN - 06/16/2020 1:46 PM EST Handicap form has been filled, will be mailed to patient's home at his request. CCM: 5 minutes 06/16/2020 Renetta Motta RN * Telephone Encounter - Esthela Dimas - 06/16/2020 11:34 AM EST Req update on handicap forms for pt. Call [phone] documented in this encounter Plan of Treatment [...] documented as of this encounter Care Teams Behavioral Intervention Specialist Relationship Specialty Start Date End Date Deep Pruitt APRN PCP - General 05/22/19 documented as of this encounter
--- OUTSIDE RECORDS SUMMARY | 2024-06-03 17:49 | XMS_ITS | Encounter Summary ---
Author Organization [facility] [employer] [facility] Address [address] [place] [phone] Care Team Providers Care Forest Products Teacher Name Role Phone Deep Pruitt APRN Primary Care Provider Reason for Visit * Reason Onset Date Comments Medication Refill 11/19/2021 Encounter Details Date Type Department Care Team (Late st Contact Info) Description 11/19/2021 Refill [facility] at [address] [facility] [address] [facility] 2nd [place] [address] Yue Dominguez APRN [address] [place] [phone] Medication Refill Social History Tobacco Use Types [...] Answer Date Recorded PHQ-2 Total Score 0 11/17/2021 [facility] of Occupat ional Health - [...] Exposure Response Date Recorded In the last 10 days, have yo u been in contact with someone who was confirmed or suspected to have Coronavirus/COVID-19? No / Unsure 11/16/2021 8:09 PM EDT documented as of this encounter Miscellaneous Notes * Telephone Encounter - Ezio Ballard RN - 11/19/2021 12:27 PM EDT Per visit 09/14/21 with Taylor Malagon APRN, Current regimen is carvedilol 25 mg bid, Losartan 50mg bid, and furosemide 80 mg/day. On this regimen, he agreed to another 24 hr ABPM. documented in this encounter Plan of Treatment Not on file documented as of this encounter Visit Diagnoses Diagnosis Edema of both feet documented in this encounter Additional Health Concerns Assessment Noted Time PHQ-9 Depression Total Score: 0 11/18/19 22 10:55 AM EDT documented as of this encounter Care Teams Forest Products Teacher Relationship Specialty Start Date End Date Deep Pruitt APRN PCP - General 05/22/19 documented as of this encounter
--- OUTSIDE RECORDS SUMMARY | 2024-06-03 17:49 | XMS_ITS | Encounter Summary ---
Author Organization [facility] Address [address] [place] [address] Care Team Providers Care Firestopper Installer Name Role Phone Sonal Deep Niko LOPEZ Primary Care Provider [phone] Reason for Visit * Reason Comments Medication Refill Encounter Details Date Type Department Care Team ([facility] st Contact Info) Description 04/12/2021 Refill [facility] [address] [place] [phone] Aliya Pond, [address] [address] Medication Refill Social History Tobacco [...] often do you attend chur ch or protestant services? Never 01/03/2020 Do you belong to any clubs o r organizations such as jehovah's witness groups, unions, fraternal or athletic groups, or [...] PHQ-2 Answer Date Recorded PHQ-2 Total Score 1 03/24/2021 [facility] - Occupational Stress Questionnaire [...] have Coronavirus / COVID-19? No / Unsure 04/15/2021 8:35 AM EST documented as of this encounter Plan of Treatment Not on file documented as of this encounter Visit Diagnoses Diagnosis Left upper quadrant abdominal pain documented in this encounter Additional Health Concerns Infection Onset Date Last Indicated Resolved Time R/O Respiratory Virus 05/05/2021 05/05/20212020 7:18 PM EST R/O COVID-19 05/05/2021 05/05/2021 05/06/2021 1:22 PM EST R/O Respiratory Virus 05/05/2021 05/05/20212021 1:45 PM EST COVID-19 09/29/2021 09/29/2021 10/19/2021 7:19 PM EDT Assessment Noted Time PHQ-9 Depression Total Score: 1 03/24/20 21 3:26 PM EST documented as of this encounter Care Teams Firestopper Installer Relationship Specialty Start Date End Date Deep Pruitt APRN PCP - General 05/22/19 documented as of this encounter
--- OUTSIDE RECORDS SUMMARY | 2024-06-03 17:49 | XMS_ITS | Encounter Summary ---
Author Organization [facility] Address [address] [place] [address] Care Team Providers Care Pigment Pumper Name Role Phone Sonal Deep Niko LOPEZ Primary Care Provider Reason for Visit * Reason Comments Medication Refill Encounter Details Date Type Department Care Team (Late st Contact Info) Description 04/07/2021 Refill [facility] Nutrition at [address] [address] Zena Hines PA [address] [place] [phone] Medication Refill Social History Tobacco Use [...] often do you attend chur ch or buddhism services? Never 01/03/2020 Do you belong to any clubs o r organizations such as zoroastrian groups, unions, fraternal or athletic groups, or [...] Date Recorded PHQ-2 Total Score 1 03/24/2021 [facility] of Occupat ional Health - [...] have Coronavirus / COVID-19? No / Unsure 04/06/2021 11:35 AM EST documented as of this encounter Miscellaneous Notes * Telephone Encounter - Katrin Yang - 04/08/2021 10:42 AM EST Hi, Please review pt no longer seeing Zena Hines for DM management at [facility]. Thanks, Katrin documented in this encounter Plan of Treatment [...] documented as of this encounter Care Teams Pigment Pumper Relationship Specialty Start Date End Date Deep Pruitt APRN PCP - General 05/22/19 documented as of this encounter
--- OUTSIDE RECORDS SUMMARY | 2024-06-03 17:49 | XMS_ITS | Encounter Summary ---
Author Organization [facility] Address [address] [place] [address] Care Team Providers Care Operator Bearer Systems Name Role Phone Deep Pruitt APRN Primary Care Provider Reason for Visit * Reason Comments Advice Only Other Encounter Details Date Type Department Care Team ([facility] Contact Info) Description 12/02/2021 Telephone [facility] [address] [place] [address] Deep Pruitt APRN [address] [place] [address] Advice Only; Other Social History Tobacco Use Types Packs/Day [...] often do you attend chur ch or amish services? Never 01/03/2020 Do you belong to any clubs o r organizations such as jew groups, unions, fraternal or athletic groups, or [...] Date Recorded PHQ-2 Total Score 0 11/17/2021 [facility] ional Health - Occupational Stress [...] suspected to have Coronavirus/COVID-19? No / Unsure 11/23/2021 11:13 AM EDT documented as of this encounter Miscellaneous Notes * Telephone Encounter - Mira Rios - 12/02/2021 1:32 PM EDT [facility] - [address] calling in regards to med refill request for Carvedilol 25 mg and Gabapentin medications. Call back [phone] * Telephone Encounter - Leah Madera LPN - 12/02/2021 1:21 PM EDT Patient at * Telephone Encounter - Usha Kline - 12/02/2021 12:18 PM EDT Pt is having a lot of stomach pain on the left side and would like to speak with PCP or nurse. Requesting a call back. [facility] callback number [phone] American speaking documented in this encounter Plan of Treatment Not on file documented as of this encounter Visit Diagnoses Diagnosis Neuropathy due to type 2 diabetes mellitus (HC Code) (HC CODE) (HC Code) Diabetic foot (HC Code) (HC CODE) (HC Code) Type II or unspecified type diabetes mellitus with other specified manifestations, not stated as uncontrolled Essential hypertension Unspecified essential hypertension documented in this encounter Additional Health Concerns Assessment Noted Time PHQ-9 Depression Total Score: 0 11/18/19 22 10:55 AM EDT documented as of this encounter Care Teams Operator Bearer Systems Relationship Specialty Start Date End Date Deep Priutt APRN PCP - General 05/22/19 documented as of this encounter
--- OUTSIDE RECORDS SUMMARY | 2024-06-03 17:49 | XMS_ITS | Encounter Summary ---
Author Organization [facility] Address [address] [place] [address] Care Team Providers Care Public Health Inspector Name Role Phone Romelia Pruittian Niko LOPEZ Primary Care Provider Encounter Details Date Type Department Care Team (Late st Contact Info) Description 11/30/2021 Scanned Document [facility] [address] [place] [address] External, Provider Social History Tobacco Use Types Packs/Day Years [...] often do you attend chur ch or advent services? Never 01/03/2020 Do you belong to any clubs o r organizations such as scientologist groups, unions, fraternal or athletic groups, or [...] Date Recorded PHQ-2 Total Score 0 11/17/2021 [facility] of Occupat ional Health - Occupational Stress [...] documented as of this encounter Care Teams Public Health Inspector Relationship Specialty Start Date End Date Deep Pruitt APRN PCP - General 05/22/19 documented as of this encounter
--- OUTSIDE RECORDS SUMMARY | 2024-06-03 17:49 | XMS_ITS | Encounter Summary ---
Author Organization [facility] Address [address] [place] [address] Care Team Providers Care Neon Tube Bender Name Role Phone Deep Pruitt APRN Primary Care Provider Reason for Visit * Reason Comments Medication Refill Encounter Details Date Type Department Care Team ([facility] st Contact Info) Description 03/19/2022 Refill [facility] [address] [place], [place] [phone] Deep Pruitt, JOHN [address] [place] [address] Medication Refill Social History Tobacco [...] often do you attend chur ch or latter-day services? Never 01/03/2020 Do you belong to any clubs o r organizations such as adventist groups, unions, fraternal or athletic groups, or [...] Date Recorded PHQ-2 Total Score 2 02/17/2022 [facility] of Occupat ional Health - Occupational [...] suspected to have Coronavirus/COVID-19? No / Unsure 02/17/2022 4:19 PM EDT documented as of this encounter Plan of Treatment Not on file documented as of this encounter Visit Diagnoses Diagnosis Asthma exacerbation, mild Unspecified asthma, with exacerbation documented in this encounter Additional Health Concerns Assessment Noted Time PHQ-9 Depression Total Score: 2 02/18/20 22 4:19 PM EDT documented as of this encounter Care Teams Neon Tube Bender Relationship Specialty Start Date End Date Deep Pruitt APRN PCP - General 05/22/19 documented as of this encounter
--- OUTSIDE RECORDS SUMMARY | 2024-06-03 17:49 | XMS_ITS | Encounter Summary ---
Author Organization [facility] Address [address] [place] [address] Care Team Providers Care Acoustical Logging Engineer Name Role Phone Deep Pruitt APRN Primary Care Provider Reason for Visit * Reason Comments Medication Refill Encounter Details Date Type Department Care Team ([facility] st Contact Info) Description 03/08/2021 Refill [facility] [address] [place], [place] [phone] Deep Pruitt APRN [address] [place] [address] Medication Refill Social History Tobacco [...] often do you attend chur ch or hindu services? Never 01/03/2020 Do you belong to any clubs o r organizations such as anabaptist groups, unions, fraternal or athletic groups, or [...] Answer Date Recorded PHQ-2 Total Score 2 03/10/2021 [facility] of Occupat ional Health - Occupational [...] have Coronavirus / COVID-19? No / Unsure 03/10/2021 1:02 PM EDT documented as of this encounter Plan of Treatment Not on file documented as of this encounter Visit Diagnoses Diagnosis Slow transit constipation Left upper quadrant pain Abdominal pain, left upper quadrant documented in this encounter Additional Health Concerns Infection Onset Date Last Indicated Resolved Time R/O Respiratory Virus 05/05/2021 05/05/20212020 7:18 PM EST R/O COVID-19 05/05/2021 05/05/2021 05/06/2021 1:22 PM EST R/O Respiratory Virus 05/05/2021 05/05/20212021 1:45 PM EST COVID-19 09/29/2021 09/29/2021 10/19/2021 7:19 PM EDT Assessment Noted Time PHQ-9 Depression Total Score: 6 01/22/20 21 10:52 AM EDT documented as of this encounter Care Teams Acoustical Logging Engineer Relationship Specialty Start Date End Date Deep Pruitt APRN PCP - General 05/22/19 documented as of this encounter
--- OUTSIDE RECORDS SUMMARY | 2024-06-03 17:49 | XMS_ITS | Encounter Summary ---
Author Organization [facility] Address [address] [place] [address] Care Team Providers Care Mine Engineer Name Role Phone Deep Pruitt JOHN Primary Care Provider Reason for Visit * Reason Comments Medication Refill Encounter Details Date Type Department Care Team (Late st Contact Info) Description 12/03/2021 Refill [facility] Podiatry at [address] [place] [phone] Arben Fountain, NOLVIA [address] [place] [address] Medication Refill Social History Tobacco Use [...] often do you attend chur ch or christianity services? Never 01/03/2020 Do you belong to any clubs o r organizations such as mormonism groups, unions, fraternal or athletic groups, or [...] Date Recorded PHQ-2 Total Score 0 11/17/2021 [facility]ational Stress Questionnaire Answer Date [...] as of this encounter Visit Diagnoses Diagnosis Diabetic foot (HC Code) (HC CODE) (HC Code) Type II or unspecified type diabetes mellitus with other specified manifestations, not stated as uncontrolled documented in this encounter Additional Health Concerns Assessment Noted Time PHQ-9 Depression Total Score: 0 11/18/19 22 10:55 AM EDT documented as of this encounter Care Teams Mine Engineer Relationship Specialty Start Date End Date Deep Pruitt APRN PCP - General 05/22/19 documented as of this encounter
--- OUTSIDE RECORDS SUMMARY | 2024-06-03 17:49 | XMS_ITS | Encounter Summary ---
Author Organization [facility] Address [address] [place] [address] Care Team Providers Care Nail Artist Name Role Phone Deep Pruitt APRN Primary Care Provider Reason for Visit * Reason Comments Medication Refill Encounter Details Date Type Department Care Team ([facility] st Contact Info) Description 12/18/2021 Refill [facility] [address] [place], [place] [phone] Deep Pruitt APRN [address] [place] [address] Medication Refill Social History Tobacco [...] often do you attend chur ch or judaism services? Never 01/03/2020 Do you belong to any clubs o r organizations such as cheondoism groups, unions, fraternal or athletic groups, or [...] PHQ-2 Answer Date Recorded PHQ-2 Total Score 4 12/20/2021 [facility] of Occupat ional Health - Occupational Stress [...] suspected to have Coronavirus/COVID-19? No / Unsure 12/20/2021 3:23 PM EDT documented as of this encounter Plan of Treatment Not on file documented as of this encounter Visit Diagnoses Diagnosis Type 2 diabetes mellitus with diabetic neuropathy, with long-term current use of insulin (HC Code) documented in this encounter Additional Health Concerns Assessment Noted Time PHQ-9 Depression Total Score: 1 12/17/19 22 2:24 PM EDT documented as of this encounter Care Teams Nail Artist Relationship Specialty Start Date End Date Deep Pruitt APRN PCP - General 05/22/19 documented as of this encounter
--- OUTSIDE RECORDS SUMMARY | 2024-06-03 17:49 | XMS_ITS | Encounter Summary ---
Author Organization [facility] Address [address] [place] [phone] Care Team Providers Care Religious Healer Name Role Phone Deep Pruitt APRN Primary Care Provider Reason for Visit * Reason Comments DME Encounter Details Date Type Department Care Team (Late st Contact Info) Description 04/11/2022 Documentation Sleep Medicine Program at [address] [place] [address] Jarad De Leon MD [address] [place] [phone] Social History Tobacco Use Types Packs/Day [...] often do you attend chur ch or yarsanism services? Never 01/03/2020 Do you belong to any clubs o r organizations such as faith groups, unions, fraternal or athletic groups, or [...] Date Recorded PHQ-2 Total Score 2 02/17/2022 [facility] of Occupat ional Health - [...] documented as of this encounter Care Teams Religious Healer Relationship Specialty Start Date End Date Deep Pruitt APRN PCP - General 05/22/19 documented as of this encounter
--- OUTSIDE RECORDS SUMMARY | 2024-06-03 17:49 | XMS_ITS | Encounter Summary ---
Author Organization [facility] Address [address] [place] [address] Care Team Providers Care Criminal Justice Faculty Name Role Phone Sonal Deep Niko LOPEZ Primary Care Provider [phone] Reason for Visit * Reason Comments Medication Refill Encounter Details Date Type Department Care Team ([facility] st Contact Info) Description 04/07/2021 Refill [facility] [address] [place] [phone] Aliya Pond, [address] [address] Medication Refill Social History Tobacco [...] often do you attend chur ch or yazdanism services? Never 01/03/2020 Do you belong to any clubs o r organizations such as episcopalian groups, unions, fraternal or athletic groups, or [...] Date Recorded PHQ-2 Total Score 1 03/24/2021 [facility] - Occupational Stress Questionnaire Answer [...] documented as of this encounter Care Teams Criminal Justice Faculty Relationship Specialty Start Date End Date Deep Pruitt APRN PCP - General 05/22/19 documented as of this encounter
--- OUTSIDE RECORDS SUMMARY | 2024-06-03 17:49 | XMS_ITS | Encounter Summary ---
Author Organization [facility] Address [address] [place] [address] Care Team Providers Care Fountain Helper Name Role Phone Romelia Pruittian Niko LOPEZ Primary Care Provider Reason for Visit * Reason Onset Date Comments Medication Refill 11/10/2021 Encounter Details Date Type Department Care Team (Late st Contact Info) Description 11/10/2021 Refill [facility] Nutrition at [address] [facility] [address] [place] [phone] Anahi Rossi, JOHN [address] [place] [phone] Medication Refill Social History Tobacco Use Types [...] often do you attend chur ch or tenriism services? Never 01/03/2020 Do you belong to any clubs o r organizations such as mosque groups, unions, fraternal or athletic groups, or [...] Answer Date Recorded PHQ-2 Total Score 0 10/12/2021 [facility] of Occupat ional Health - Occupational [...] suspected to have Coronavirus/COVID-19? No / Unsure 11/02/2021 10:26 AM EDT documented as of this encounter Plan of Treatment Not on file documented as of this encounter Visit Diagnoses Diagnosis Type 2 diabetes mellitus with diabetic polyneuropathy, with long-term current use of insulin (HC Code) documented in this encounter Additional Health Concerns Assessment Noted Time PHQ-9 Depression Total Score: 0 10/13/19 22 2:23 PM EDT documented as of this encounter Care Teams Fountain Helper Relationship Specialty Start Date End Date Deep Pruitt APRN PCP - General 05/22/19 documented as of this encounter
--- OUTSIDE RECORDS SUMMARY | 2024-06-03 17:49 | XMS_ITS | Encounter Summary ---
Author Organization [facility] Address [address] [place] [address] Care Team Providers Care Header Up Name Role Phone Deep Pruitt APRN Primary Care Provider Reason for Visit * Reason Comments Medication Refill Encounter Details Date Type Department Care Team ([facility] st Contact Info) Description 03/20/2021 Refill [facility] [address] [place] [address] Deep Pruitt APRN [address] [place] [phone] Medication Refill Social History Tobacco Use [...] often do you attend chur ch or episcopal services? Never 01/03/2020 Do you belong to any clubs o r organizations such as mu-ism groups, unions, fraternal or athletic groups, or [...] Date Recorded PHQ-2 Total Score 1 03/24/2021 [facility] of Occupat ional Health - Occupational [...] have Coronavirus / COVID-19? No / Unsure 03/19/2021 8:12 AM EST documented as of this encounter Plan of Treatment Not on file documented as of this encounter Visit Diagnoses Diagnosis 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 documented in this encounter Additional Health Concerns Infection Onset Date Last Indicated Resolved Time R/O Respiratory Virus 05/05/2021 05/05/20212020 7:18 PM EST R/O COVID-19 05/05/2021 05/05/2021 05/06/2021 1:22 PM EST R/O Respiratory Virus 05/05/2021 05/05/20212021 1:45 PM EST COVID-19 09/29/2021 09/29/2021 10/19/2021 7:19 PM EDT Assessment Noted Time PHQ-9 Depression Total Score: 2 03/10/20 21 1:04 PM EDT documented as of this encounter Care Teams Header Up Relationship Specialty Start Date End Date Deep Pruitt APRN PCP - General 05/22/19 documented as of this encounter
--- OUTSIDE RECORDS SUMMARY | 2024-06-03 17:49 | XMS_ITS | Encounter Summary ---
Author Organization [facility] Address [address] [place] [address] Care Team Providers Care Soft Shoe Dancer Name Role Phone Deep Pruitt APRN Primary Care Provider Reason for Visit * Reason Comments Medication Refill Encounter Details Date Type Department Care Team ([facility] st Contact Info) Description 03/10/2021 Refill [facility] [address] [place] [address] Deep Pruitt APRN [address] [place] [phone] Medication Refill Social History Tobacco Use [...] often do you attend chur ch or bahai services? Never 01/03/2020 Do you belong to any clubs o r organizations such as yarsani groups, unions, fraternal or athletic groups, or [...] Date Recorded PHQ-2 Total Score 2 03/10/2021 [facility] of Occupat ional Health - Occupational Stress [...] documented as of this encounter Care Teams Soft Shoe Dancer Relationship Specialty Start Date End Date Deep Pruitt APRN PCP - General 05/22/19 documented as of this encounter
--- OUTSIDE RECORDS SUMMARY | 2024-06-03 17:49 | XMS_ITS | Encounter Summary ---
Author Organization [facility] Address [address] [place] [address] Care Team Providers Care Drafter Topographical Name Role Phone Deep Pruitt APRN Primary Care Provider Reason for Visit * Reason Comments Medication Refill Encounter Details Date Type Department Care Team ([facility] st Contact Info) Description 02/25/2022 Refill [facility] TR[facility] [address] [place], [place] [phone] Deep Pruitt, JOHN [address] [place] [phone] Medication Refill Social History Tobacco Use [...] often do you attend chur ch or sikhism services? Never 01/03/2020 Do you belong to any clubs o r organizations such as adventism groups, unions, fraternal or athletic groups, or [...] Date Recorded PHQ-2 Total Score 2 02/17/2022 [facility] of Occupat ional Health - Occupational [...] documented as of this encounter Care Teams Drafter Topographical Relationship Specialty Start Date End Date Deep Pruitt APRN PCP - General 05/22/19 documented as of this encounter
--- OUTSIDE RECORDS SUMMARY | 2024-06-03 17:49 | XMS_ITS | Encounter Summary ---
Author Organization [facility] Address [address] [place] [address] Care Team Providers Care Fence Erector Supervisor Name Role Phone Deep Pruitt APRN Primary Care Provider Reason for Visit * Reason Comments Medication Refill Encounter Details Date Type Department Care Team ([facility] st Contact Info) Description 12/15/2021 Refill [facility] [address] [place], [place] [phone] Deep Pruitt APRN [address] [place] [address] Medication Refill Social History Tobacco [...] often do you attend chur ch or uatsdin services? 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
--- OUTSIDE RECORDS SUMMARY | 2024-06-03 17:49 | XMS_ITS | Encounter Summary ---
Author Organization [facility] Address [address] [place] [address] Care Team Providers Care Fire Hose Curer Name Role Phone Deep Pruitt Niko LOPEZ Primary Care Provider Reason for Visit * Reason Comments Medication Refill Encounter Details Date Type Department Care Team (Late st Contact Info) Description 05/06/[address] [phone] Arben Fountain, NOLVIA [address] [place] [address] Medication Refill Social History Tobacco Use [...] often do you attend chur ch or gnosticism services? Never 01/03/2020 Do you belong to [...] Answer Date Recorded PHQ-2 Score 0 03/13/2020 [facility] of Occupat ional Health - [...] have Coronavirus / COVID-19? No / Unsure 05/05/2020 8:52 AM EST documented as of this encounter [...] documented as of this encounter Care Teams Fire Hose Curer Relationship Specialty Start Date End Date Deep Pruitt APRN PCP - General 05/22/19 documented as of this encounter
--- OUTSIDE RECORDS SUMMARY | 2024-06-03 17:49 | XMS_ITS | Encounter Summary ---
Author Organization [facility] Address [address] [place] [phone] Care Team Providers Care Chocolate Maker Name Role Phone Deep Pruitt APRN Primary Care Provider Encounter Details Date Type Department Care Team (Late st Contact Info) Description 04/08/2021 Lab Requisition [facility] [address] [place] [address] Isha Brown APRN [address] [place] [address] Persons encountering health services in other specified circumstances Social History Tobacco Use Types Packs/Day Years [...] Date Recorded PHQ-2 Total Score 1 03/24/2021 [facility] - Occupational Stress [...] on file documented as of this encounter Procedures Procedure Name Priority Date/Time Associated Diagnosis Comments BLOOD GAS, ARTERIAL ([facility]) Routine 04/08/2021 12:44 PM EST documented in this encounter Results * (ABNORMAL) Blood gas, arterial () (04/08/2021 12:44 PM EST) pH Arterial 7.37 7.35 - 7.45 units 04/08/2021 12:[address] [facility] DEPARTMENT OF LABORATORY MEDICINE pCO2, Arterial 49(H) 32 - 48 mmHg 04/08/20 21 12:[address] [facility] DEPARTMENT OF LABORATORY MEDICINE pO2, Arterial 65(L) 83 - 108 mmHg 04/08/2021 12:[address] [facility] DEPARTMENT OF LABORATORY MEDICINE O2 Sat, Arterial 89(L) 94 - 98 % 04/08/20 12:[address] [facility] DEPARTMENT OF LABORATORY MEDICINE Calculated HCO3, Arterial 27.5 21.0 - 28.0 mmol/L 04/08/2021 12:[address] [facility] DEPARTMENT OF LABORATORY MEDICINE Base Excess, Arterial 2 -2 - 3 mmol/L 04/08/2021 12:[address] [facility] DEPARTMENT OF LABORATORY MEDICINE Patient Temperature 37.0 Celsius 04/08/2021 12:54 PM EST [facility] DEPARTMENT OF LABORATORY MEDICINE FIO2 21 % 04/08/2021 12:54 PM EST [facility] DEPARTMENT OF LABORATORY MEDICINE Blood, Arterial 04/08/2021 1 2:44 PM EST 04/08/2021 12:45 PM EST us Isha Brown MINE PROMOTOR LAB BLOOD ORDERABL ES Final Result Performing Organization Address City/State/[facility] de Phone Number [facility] DEPARTMENT OF LABORATORY MEDICINE [address] [place] [address] documented in this encounter Visit Diagnoses Diagnosis Persons encountering health services in other specified circumstances documented in this encounter Additional Health Concerns [...] documented as of this encounter Care Teams Chocolate Maker Relationship Specialty Start Date End Date Deep Pruitt APRN PCP - General 05/22/19 documented as of this encounter
--- OUTSIDE RECORDS SUMMARY | 2024-06-03 17:49 | XMS_ITS | Encounter Summary ---
Author Organization [facility] Address [address] [place] [address] Care Team Providers Care Metal Fabricator Name Role Phone Deep Pruitt APRN Primary Care Provider [phone] Reason for Visit * Reason Comments Medication Problem Encounter Details Date Type Department Care Team ([facility] st Contact Info) Description 12/21/2021 Refill [facility] [address] [place] [address] Deep Pruitt APRN [address] [place] [address] Medication Problem Social History Tobacco Use Types Packs/Day Years [...] Date Recorded PHQ-2 Total Score 4 12/20/2021 [facility] - Occupational [...] encounter Miscellaneous Notes * Telephone Encounter - Carolina López - 12/22/2021 1:48 PM EDT Pt Sissy mentioned she contacted the pharmacy for refills on furosemide (LASIX) 80 mg tabletdue to the pt taking his last pill today. She states the pharmacy advised her that the prescriptionwas discontinued by his PCP. She also mentioned the pt has not been aware the medication was discontinued. She would like a call back or to contact the pt with updated information the water pill. Call back [phone] * Telephone Encounter - Sarah Newman - 12/21/2021 1:05 PM EDT Best contact: [phone] Patient Sissy called and stated that she contacted [facility] on and they informed that the medication furosemide (LASIX) 80 mg tablet was disconnected.Please contact patient for update. documented in this encounter Plan of Treatment Not on file documented as of this encounter Visit Diagnoses Diagnosis Edema of both feet documented in this encounter Additional Health Concerns Assessment Noted Time PHQ-9 Depression Total Score: 22 022 3:28 PM EDT documented as of this encounter Care Teams Metal Fabricator Relationship Specialty Start Date End Date Deep Pruitt APRN PCP - General 05/22/19 documented as of this encounter
--- OUTSIDE RECORDS SUMMARY | 2024-06-03 17:49 | XMS_ITS | Encounter Summary ---
Author Organization [facility] Address [address] [place] [address] Care Team Providers Care Transportation Maintenance Specialist Name Role Phone Romelia Pruittian Niko LOPEZ Primary Care Provider Encounter Details Date Type Department Care Team (Late st Contact Info) Description 03/18/2021 Scanned Document [facility] [address] [place] [address] External, Provider Social History Tobacco Use Types [...] Date Recorded PHQ-2 Total Score 2 03/10/2021 [facility] of Occupat ional Health - [...] documented as of this encounter Care Teams Transportation Maintenance Specialist Relationship Specialty Start Date End Date Deep Pruitt APRN PCP - General 05/22/19 documented as of this encounter
--- OUTSIDE RECORDS SUMMARY | 2024-06-03 17:50 | XMS_ITS | Encounter Summary ---
Author Organization [facility] Address [address] [place] [address] Care Team Providers Care Roll Forming Machine Set Up Operator Name Role Phone Deep Pruitt APRN Primary Care Provider [phone] Reason for Visit * Reason Comments Medication Refill Encounter Details Date Type Department Care Team ([facility] st Contact Info) Description 11/17/2021 Refill [facility] [address] [place], [place] [phone] Deep Pruitt APRN [address] [place] [address] Medication Refill Social History Tobacco [...] you attend chur ch or presybeterian services? Never 01/03/2020 Do you belong to [...] Date Recorded PHQ-2 Total Score 0 11/17/2021 [facility] of Occupat ional Health - [...] documented as of this encounter Care Teams Roll Forming Machine Set Up Operator Relationship Specialty Start Date End Date Deep Pruitt APRN PCP - General 05/22/19 documented as of this encounter
--- OUTSIDE RECORDS SUMMARY | 2024-06-03 17:50 | XMS_ITS | Encounter Summary ---
Author Organization [facility] Address [address] [place] [address] Care Team Providers Care Concrete Block Molder Name Role Phone Deep Pruitt APRN Primary Care Provider [phone] Reason for Visit * Reason Onset Date Comments Medication Refill 11/10/2021 Encounter Details Date Type Department Care Team (Late st Contact Info) Description 11/10/2021 Refill [facility] [address] [facility] [address] [facility] 2nd [place] [address] Taylor Malagon, [facility] [address] [place] [phone] Medication Refill Social History Tobacco Use Types [...] any clubs o r organizations such as evangelical groups, unions, fraternal or athletic groups, or [...] Date Recorded PHQ-2 Total Score 0 10/12/2021 [facility] Occupat ional [facility] - Occupational Stress Questionnaire Answer [...] encounter Miscellaneous Notes * Telephone Encounter - Shanthi Beavers RN - 11/10/2021 12:36 PM EDT Last neph appt 09/14/21 Note reads Hypertension: Better in clinic today, but unknown at home. Defer to [facility] pharmacy team for antihypertensive management. Current regimen is carvedilol 25 mg bid, Losartan 50 mg bid, and furosemide 80 mg/day. On this regimen, he agreed to another 24 hr ABPM. rx pended for Furosemide refill BP monitor scheduled for 11/17/21 documented in this encounter Plan of Treatment Not on file documented as of this encounter Visit Diagnoses Diagnosis Edema of both feet documented in this encounter Additional Health Concerns Assessment Noted Time PHQ-9 Depression Total Score: 0 10/13/19 22 2:23 PM EDT documented as of this encounter Care Teams Concrete Block Molder Relationship Specialty Start Date End Date Deep Pruitt APRN PCP - General 05/22/19 documented as of this encounter
--- OUTSIDE RECORDS SUMMARY | 2024-06-03 17:50 | XMS_ITS | Encounter Summary ---
Author Organization [facility] Address [address] [place] [address] Care Team Providers Care Network Cabler Name Role Phone Deep Pruitt APRN Primary Care Provider Reason for Visit * Reason Onset Date Comments Medication Refill 11/10/2021 Encounter Details Date Type Department Care Team (Late st Contact Info) Description 11/10/2021 Refill [facility] [address] [facility] [address] [facility] 2nd [place] [address] Taylor Malagon, [facility] [address] [place] [phone] Medication Refill Social History Tobacco Use Types [...] often do you attend chur ch or holiness services? Never 01/03/2020 Do you belong to any clubs o r organizations such as yazidism groups, unions, fraternal or athletic groups, or [...] Date Recorded PHQ-2 Total Score 0 10/12/2021 [facility] of Occupat ional [facility] - Occupational Stress Questionnaire Answer Date Recorded [...] Encounter - Shanthi Beavers RN - 11/10/2021 12:38 PM EDT Duplicate refill request Please refuse once pended order signed documented in this encounter Plan of Treatment Not on file documented as of this encounter Visit Diagnoses Diagnosis Edema of both feet documented in this encounter Additional Health Concerns Assessment Noted Time PHQ-9 Depression Total Score: 0 10/13/19 22 2:23 PM EDT documented as of this encounter Care Teams Network Cabler Relationship Specialty Start Date End Date Deep Pruitt APRN PCP - General 05/22/19 documented as of this encounter
--- OUTSIDE RECORDS SUMMARY | 2024-06-03 17:50 | XMS_ITS | Encounter Summary ---
Author Organization [facility] Address [address] [place] [address] Care Team Providers Care Nuclear Medicine Pet Ct Technologist Name Role Phone Deep Pruitt APRN Primary Care Provider Reason for Visit * Reason Onset Date Comments Medication Refill 11/10/2021 Encounter Details Date Type Department Care Team (Late st Contact Info) Description 11/10/2021 [facility]ill [facility] [address] [place], [place] [phone] Anahi Rossi, JOHN [address] [place] [address] Medication Refill Social History Tobacco Use [...] often do you attend chur ch or christian services? Never 01/03/2020 Do you belong to [...] Date Recorded PHQ-2 Total Score 0 10/12/2021 [facility] of Occupat ional [facility] - Occupational Stress Questionnaire Answer Date [...] documented as of this encounter Care Teams Nuclear Medicine Pet Ct Technologist Relationship Specialty Start Date End Date Deep Pruitt APRN PCP - General 05/22/19 documented as of this encounter
--- OUTSIDE RECORDS SUMMARY | 2024-06-03 17:50 | XMS_ITS | Encounter Summary ---
Author Organization [facility] Address [address] [place] [address] Care Team Providers Care Application Security Specialist Name Role Phone Deep Pruitt APRN Primary Care Provider Reason for Visit * Reason Onset Date Comments Medication Refill 11/19/2021 Encounter Details Date Type Department Care Team (Late st Contact Info) Description 11/19/2021 Refill [facility] [address] [facility] [address] [facility] 2nd [place] [address] Yue Dominguez APRN [address] [place] [phone] Medication Refill Social History Tobacco Use Types [...] any clubs o r organizations such as anabaptism groups, unions, fraternal or athletic groups, or [...] Date Recorded PHQ-2 Total Score 0 11/17/2021 [facility] of Occupat ional Health - Occupational Stress [...] Encounter - Ezio Ballard RN - 11/19/2021 12:28 PM EDT Duplicate request documented in this encounter Plan of Treatment Not on file documented as of this encounter Visit Diagnoses Diagnosis Edema of both feet documented in this encounter Additional Health Concerns Assessment Noted Time PHQ-9 Depression Total Score: 0 11/18/19 22 10:55 AM EDT documented as of this encounter Care Teams Application Security Specialist Relationship Specialty Start Date End Date Deep Prutit APRN PCP - General 05/22/19 documented as of this encounter
--- OUTSIDE RECORDS SUMMARY | 2024-06-03 17:50 | XMS_ITS | Encounter Summary ---
Author Organization [facility] Address [address] [place] [address] Care Team Providers Care Roll Hand Name Role Phone BeaumontDeep medina Niko LOPEZ Primary Care Provider Reason for Visit * Reason Onset Date Comments Medication Refill 11/19/2021 Encounter Details Date Type Department Care Team (Late st Contact Info) Description 11/19/2021 Refill [facility] [address] [place] [address] Audelia Childs, DDS [address] [place] [address] Medication Refill Social History Tobacco [...] Date Recorded PHQ-2 Total Score 0 11/17/2021 [facility] of Occupat ional Health - Occupational Stress [...] as of this encounter Care Teams Roll Hand Relationship Specialty Start Date End Date Deep Pruitt APRN PCP - General 05/22/19 documented as of this encounter
--- OUTSIDE RECORDS SUMMARY | 2024-06-03 17:50 | XMS_ITS | Encounter Summary ---
Author Organization [facility] Address [address] [place] [address] Care Team Providers Care Lumber Stacker Operator Name Role Phone Deep Pruitt APRN Primary Care Provider Encounter Details Date Type Department Care Team ([facility] st Contact Info) Description 10/27/2021 Scanned Document [facility] [address] [place], [place] [phone] Deep Pruitt APRN [address] [place] [address] Social History Tobacco Use Types [...] often do you attend chur ch or taoism services? Never 01/03/2020 Do you belong to any clubs o r organizations such as congregation groups, unions, fraternal or athletic groups, or [...] Date Recorded PHQ-2 Total Score 0 10/12/2021 [facility] of Occupat ional Health [...] suspected to have Coronavirus/COVID-19? No / Unsure 10/27/2021 10:46 AM EDT documented as of this encounter Plan of Treatment Not on file documented as of this encounter Visit Diagnoses Not on filedocumented in this encounter Additional Health Concerns Assessment Noted Time PHQ-9 Depression Total Score: 0 10/13/19 22 2:23 PM EDT documented as of this encounter Care Teams Lumber Stacker Operator Relationship Specialty Start Date End Date Deep Pruitt APRN PCP - General 05/22/19 documented as of this encounter
--- OUTSIDE RECORDS SUMMARY | 2024-06-03 17:50 | XMS_ITS | Encounter Summary ---
Author Organization [facility] Address [address] [place] [address] Care Team Providers Care Assembler Engine Name Role Phone Romelia Pruittian Niko LOPEZ Primary Care Provider Reason for Visit * Reason Onset Date Comments Medication Refill 11/19/2021 Encounter Details Date Type Department Care Team (Late st Contact Info) Description 11/19/2021 Refill [facility] [address] [place] [phone] Carlos Eduardo Joyner MD [address] [place] [phone] Medication Refill Social History Tobacco Use [...] Date Recorded PHQ-2 Total Score 0 11/17/2021 [facility] - [facility]ational Stress Questionnaire Answer [...] documented as of this encounter Care Teams Assembler Engine Relationship Specialty Start Date End Date Deep Pruitt APRN PCP - General 05/22/19 documented as of this encounter
--- OUTSIDE RECORDS SUMMARY | 2024-06-03 17:51 | XMS_ITS | Encounter Summary ---
Author Organization [employer] Address [address] [facility] 7[address] [place] [address] Care Team Providers Care Jack Prizer Name Role Phone Elise Stanford PRINCIPAL QUALITY ENGINEER Primary Care Provider [phone] Katrin Santoyo MD Primary Care Pro vider Edison Vieira MD Unavailable [phone] Joe Devi MD Unavailable [phone] Encounter Details Date Type Department Care Team (Late st Contact Info) Description 12/06/2022 Telephone [facility] [address] [place] [address] Susan Manzano LPN Social History Tobacco Use Types Packs/Day Years Used Date Smoking Tobacco: Never Smokeless Tobacco: Never Alcohol Use Standard Drinks/Week Comments Never 0 (1 standard drink = 0.6 oz pur e alcohol) PHQ-2 Answer Date Recorded Patient Health Questionnaire-2 Score 6 11/18/2022 Sex and Gender Information Value Date Recorded Sex Assigned at Male 03/07/2022 10:30 AM EDT Legal Sex Male 10:30 AM EDT Gender Identity Male 11/07/2022 4:48 PM EDT Sexual Orientation Straight 11/07/2022 4: 48 PM EDT COVID-19 Exposure Response Date Recorded In the last 10 days, have yo u been in contact with someone who was confirmed or suspected to have Coronavirus/COVID-19? No / Unsure 11/07/2022 4:52 PM EDT documented as of this encounter Miscellaneous Notes * Telephone Encounter - Susan Manzano LPN - 12/06/2022 1:30 PM EDT Critical result line call from [place] with [facility]. Patient glucose reported as 411 today. Triage call to follow with patient. Please update PCP with critical result. documented in this encounter Plan of Treatment Upcoming Encounters Date Type Department Care Team (Late st Contact Info) Description 06/04/2024 11:00 AM EST Office Visit [facility] [address] [place] [address] documented as of this encounter Visit Diagnoses Not on filedocumented in this encounter Additional Health Concerns Assessment Noted Time PHQ-9 Depression Total Score: 023 2:05 PM EDT documented as of this encounter Care Teams Jack Prizer Relationship Specialty Start Date End Date Elise Stanford FNP PCP - General Family Medicine 11/24/22 12/12/22 Katrin Santoyo MD [address] [place] [address] PCP - General Internal Medicine 12/13/22 Edison Vieira MD [address] [place] [address] Pulmonary Disease 04/07/24 Joe Devi MD [address] [facility] 3rd [place] [address] Gastroenterology 04/07/24 Carito Roche DNP [address] [facility], [address] [place] [address] Nephrology 04/07/24 [facility] 04/11/24 documented as of this encounter
--- OUTSIDE RECORDS SUMMARY | 2024-06-03 17:51 | XMS_ITS | Encounter Summary ---
Author Organization [facility] Address [address] [place] [address] Care Team Providers Care Carousel Attendant Name Role Phone Sonal Deep Niko LOPEZ Primary Care Provider Reason for Visit * Reason Comments Medication Refill Encounter Details Date Type Department Care Team (Late st Contact Info) Description 01/04/2021 Refill [facility] Nutrition at [address] [address] Zena Hines PA [address] [place] [phone] Medication Refill Social History Tobacco Use [...] often do you attend chur ch or catholic services? Never 01/03/2020 Do you belong to any clubs o r organizations such as taoism groups, unions, fraternal or athletic groups, or [...] Answer Date Recorded PHQ-2 Total Score 0 11/18/2020 [facility] of Occupat ional Health - [...] have Coronavirus / COVID-19? No / Unsure 12/23/2020 1:05 PM EDT documented as of this encounter Miscellaneous Notes * Telephone Encounter - Katrin Yang - 01/04/2021 4:[address] Tejas Pike Please review pt seeing Katrin Alejandra documented in this encounter Plan of Treatment [...] Noted Time PHQ-9 Depression Total Score: 0 11/19/19 21 1:24 PM EDT documented as of this encounter Care Teams Carousel Attendant Relationship Specialty Start Date End Date Deep Pruitt APRN PCP - General 05/22/19 documented as of this encounter
--- OUTSIDE RECORDS SUMMARY | 2024-06-03 17:51 | XMS_ITS | Encounter Summary ---
Author Organization [facility] Address [address] [place] [address] Care Team Providers Care Development Rep Name Role Phone Deep Pruitt JOHN Primary Care Provider Encounter Details Date Type Department Care Team (Late st Contact Info) Description 04/05/2017 Scanned Document [facility] [address] [place], [place] [phone] Francisco Veloz PA [address] [place] [phone] Social History Tobacco Use Types Packs/Day Years Used Date Smoking Tobacco: Never Assessed Sex and Gender Information Value Date Recorded Sex Assigned at Male 12/10/2018 10:49 AM EDT Legal Sex Male 9:30 AM EST Gender Identity Male 12/10/2018 10:49 AM EDT Sexual Orientation Straight 12/10/2018 10 :49 AM EDT documented as of this encounter Plan of Treatment Not on file documented as of this encounter Procedures Procedure Name Priority Date/Time Associated Diagnosis Comments LAB SCAN Routine 04/05/2017 documented in this encounter Results * Lab Scan (04/05/2017) us Provider External LAB BLOOD ORDERABLES Final Res ult documented in this encounter Visit Diagnoses Not on filedocumented in this encounter Additional Health Concerns Infection Onset Date Last Indicated Resolved Time R/O COVID-19 02/04/2020 02/04/2020 02/05/2020 1:29 AM EDT R/O Respiratory Virus 05/05/2021 05/05/20212020 7:18 PM EST R/O COVID-19 05/05/2021 05/05/2021 05/06/2021 1:22 PM EST R/O Respiratory Virus 05/05/2021 05/05/20212021 1:45 PM EST COVID-19 09/29/2021 09/29/2021 10/19/2021 7:19 PM EDT documented as of this encounter Care Teams Development Rep Relationship Specialty Start Date End Date Deep Pruitt APRN PCP - General 05/22/19 documented as of this encounter
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
--- OUTSIDE RECORDS SUMMARY | 2024-06-03 17:51 | XMS_ITS | Encounter Summary ---
Author Organization [facility] Address [address] [place] [address] Care Team Providers Care Lye Boiler Name Role Phone Deep Pruitt APRN Primary Care Provider Reason for Visit * Reason Comments Medication Refill Encounter Details Date Type Department Care Team ([facility] st Contact Info) Description 02/01/[address] [facility] [address], [place] [phone] Deep Pruitt APRN [address] [place] [address] Medication Refill Social History Tobacco [...] any clubs o r organizations such as oriental orthodox groups, unions, fraternal or athletic groups, or [...] PHQ-2 Answer Date Recorded PHQ-2 Total Score 6 01/21/2021 [facility] - Occupational [...] have Coronavirus / COVID-19? No / Unsure 01/20/2021 9:31 AM EDT documented as of this encounter [...] documented as of this encounter Care Teams Lye Boiler Relationship Specialty Start Date End Date Deep Pruitt APRN PCP - General 05/22/19 documented as of this encounter
--- OUTSIDE RECORDS SUMMARY | 2024-06-03 17:51 | XMS_ITS | Clinical Summary ---
Author Organization [employer] Address [address] [facility] [address] [place] [address] Care Team Providers Care Manager Pest Name Role Phone Katrin Santoyo MD Primary Care Pro vider Edison Vieira MD Unavailable [phone] Joe Devi MD Unavailable [phone] Allergies Active Allergy Reactions Criticality Noted Date Comments Amlodipine Swelling 03/28/2021 Other reaction(s): Edema Pt develops lower leg swelling Pt develops lower leg swelling Penicillin G Angioedema 12/09/2022 Penicillins Itching Medium 12/10/2018 Medications ziprasidone (Geodon) 80 MG capsule 023 Active traZODone (Desyrel) 150 MG tablet Take 1 to 2 tablets by mouth at bedtime as needed 023 Active HumuLIN R U-500 KWIKPEN 500 UNIT/ML CONCENTRATED injection Inject 135 units under the skin three times daily with meals 023 Active Continuous Blood Gluc Sensor (Dexcom G7 Sensor) [facility] 023 Active DULoxetine (Cymbalta) [address] capsuleIndicati ons: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 Take 1 capsule (60 mg) by mouth in the morning. 90 capsule 1 023 Active Ventolin HFA 108 (90 Base) MCG/ACT inhalerIndicati ons:Moderate persistent asthma without complication Inhale 2 puffs every 4 (four) hours if needed for wheezing. 18 g 3 023 Active clonazePAM (KlonoPIN) 0.5 MG tablet 1 tab TID 023 Active divalproex (Depakote ER) 500 MG 24 hr tablet Take 2 tablets by mouth at bedtime Active DULoxetine (Cymbalta) [address] capsule TAKE 1 CAPSULE BY MOUTH EVERY DAY IN THE EVENING Active Blood Glucose Monitoring Suppl ([employer]Style [place] Lite) w/Device kitIndications: Type 2 diabetes mellitus with diabetic nephropathy, with long-term current use of insulin ([facility]) Use to test blood sugar bid dx dm 1 kit Active calcium carbonate (Tums) 500 MG chewable tabletIndicatio ns:Elevated parathyroid hormone Chew 2 tablets (1,000 mg) Once per day. 180 tablet 024 2024 Active cholecalciferol (Vitamin D-3) 50 MCG (2000 UT) tabletIndicatio ns:Elevated parathyroid hormone Take 1 tablet (50 mcg) by mouth Once per day. 90 tablet 1 024 2024 Active capsaicin (Capzasin-HP) 0.1 % creamIndication s:Chronic radicular lumbar pain Apply thin layer by topical route up to 4 times daily as needed for pain. 45 g 3 Active glucose 4 g chewable tablet Chew 4 tablets (16 g) if needed for low blood sugar. 50 tablet 2 024 2024 Active omega-3 acid ethyl esters (Lovaza) 1 g capsule Take 2 capsules (2 g) by mouth 2 times daily. 120 capsule 11 Active Advair HFA 230-21 MCG/ACT inhalerIndicati ons:Moderate persistent asthma without complication INHALE 2 PUFFS TWICE DAILY IN THE MORNING AND AT BEDTIME RINSE MOUTH AFTER USING. 12 g 3 Active Spiriva Respimat 1.25 MCG/ACT inhalerIndicati ons:Moderate persistent asthma without complication INHALE 2 PUFFS BY MOUTH EVERY MORNING 4 g Active ezetimibe (Zetia) 10 MG tablet TAKE 1 TABLET BY MOUTH EVERY DAY IN THE MORNING 90 tablet 1 Active atorvastatin (Lipitor) 80 MG tablet TAKE 1 TABLET BY MOUTH EVERY DAY 90 tablet 1 Active Aspirin Low Dose 81 MG chewable tablet CHEW 1 TABLET BY MOUTH EVERY MORNING 90 tablet 1 Active amLODIPine (Norvasc) 5 MG tablet TAKE 1 TABLET BY MOUTH EVERY DAY 90 tablet 1 Active Alpha-Lipoic Acid 600 MG capsule TAKE 1 CAPSULE BY MOUTH EVERY DAY 30 capsule 5 Active febuxostat (Uloric) 40 MG tablet TAKE 1 TABLET BY MOUTH ONCE DAILY 90 tablet Active Ketotifen Fumarate 0.035 % solution PLACE 1 DROP INTO THE AFFECTED EYE(S) TWICE DAILY NEEDED FOR ALLERGIES 5 mL 1 Active ammonium lactate (Lac-Hydrin) 12 % lotion Apply 1 Application. topically Once per day. To feet Active ergocalciferol (Vitamin D-2) 1.25 MG (30885 UT) capsule Take 1 capsule by mouth. Every Monday and Active lidocaine (Lidoderm) 5 % patch Apply 1 patch topically Once per day. 12 hours on and 12 hours off Active SSD 1 % cream Apply 1 Application. topically Once per day. Active FreeStyle lancetsIndicati ons:Type 2 diabetes mellitus with diabetic nephropathy, with long-term current use of insulin ([facility]) 1 each by Other route before breakfast, before lunch, before evening meal, and at bedtime. Use bid, dx type 2 diabetes 100 each Active Alcohol Swabs (B-D SINGLE USE SWABS REGULAR) pads Apply 1 Units topically 4 times daily. 100 each Active B-D UF III MINI PEN NEEDLES 31G X 5 MM [facility] Use as instructed 100 each Active FREESTYLE LITE test strip Use to test blood sugar as directed 100 each 11 Active carvedilol (Coreg) 25 MG tablet Take by mouth with breakfast and with evening meal. 180 tablet 1 Active albuterol (2.5 MG/3ML) 0.083% nebulizer solutionIndicat ions:Moderate persistent asthma without complication Take 3 mL (2.5 mg) by nebulization every 4 (four) hours if needed for wheezing. 75 mL 3 024 2024 Active fluticasone (Flonase) 50 MCG/ACT nasal sprayIndication s:Nasal congestion Administer 1-2 sprays into each nostril Once per day. Shake gently. Before first use, prime pump. After use, clean tip and replace cap. 16 g 024 2024 Active furosemide (Lasix) 40 MG tabletIndicatio ns:Acute kidney injury superimposed on CKD (CMS/HCC) (CMS/HCC),Prima ry hypertension Take 1 tablet (40 mg) by mouth Once per day. 90 tablet 024 2024 Active naproxen (Naprosyn) 500 MG tablet Take 500 mg by mouth 2 times daily. Active Jardiance 10 MG Take 1 tablet (10 mg) by mouth Once per day. 90 tablet Active gabapentin (Neurontin) 600 MG tablet TAKE 1 TABLET BY MOUTH EVERY MORNING AND TAKE 1/2 TABLET BY MOUTH EVERY EVENING 45 tablet 2 Active FT Lubricant Eye Drops 0.5 % ophthalmic solution INSTILL 1 DROP IN EACH EYE NEEDED DRY EYES 30 each 1 025 Active traMADol (Ultram) 50 MG tabletIndicatio ns:Chronic radicular lumbar pain TAKE 1 TABLET BY MOUTH EVERY 8 HOURS NEEDED SEVERE PAIN FOR UP TO 28 DAYS 84 tablet Active Diclofenac Sodium 1 % gelIndications: Chronic radicular lumbar pain APPLY A THIN LAYER (2 GRAMS) TOPICALLY TO AFFECTED AREA(S) THREE TIMES DAILY NEEDED FOR PAIN 100 g 1 025 Active Diclofenac Sodium 1 % gelIndications: Chronic radicular lumbar pain Apply thin layer by topical route (quantity as directed on package insert) to affected area of pain 3 times daily as needed. 50 g 3 024 2024 Discontinued(R eorder (will not trigger notification to Pharmacy)) FT Lubricant Eye Drops 0.5 % ophthalmic solution INSTILL 1 DROP IN EACH EYE NEEDED DRY EYES 30 each 1 024 2024 Discontinued traMADol (Ultram) 50 MG tabletIndicatio ns:Chronic radicular lumbar pain TAKE 1 TABLET BY MOUTH EVERY 8 HOURS NEEDED FOR SEVERE PAIN FOR UP TO 28 DAYS 84 tablet 024 2024 Discontinued Active Problems Problem Noted Date Diagnosed Date Long-term current use of opiate analgesic 2023 Overview (04/03/2024): Medication: Tramadol 50mg Q8H PRN Indication: chronic radicular lumbar pain Last NUT GRADER Agreement: 04/02/24 Chronic respiratory failure with hypoxia 024 On home oxygen therapy 02/02/2024 Assessment & Plan (04/07/2024 2:01 PM EST): - Continues on 2L oxygen - Followed by [facility] Pulm - Dr. Vieira Chest pressure 11/14/2023 Right foot pain 11/13/2023 Assessment & Plan (11/13/2023 1:02 PM EDT): It seems to be a plantar corn vs a foreign body, no s/s cellulitis at this time Advised to keep pressure off the right foot by putting a donut shaped callus cushion on the affected area and will refer to podiatry for further evaluation. Re consult prn if he develops redness, discharge or abscess on moe dyana. Advised against pocking on the lesions. Secondary dental caries 10/23/2023 Fractured dental cheondoism without loss of mat erial 10/23/2023 Alkaline phosphatase elevation 07/27/2023 Diabetes mellitus, labile 06/29/2023 Adrenal adenoma, right 05/18/2023 Type 2 diabetes mellitus wit h stage 3 chronic kidney disease, with long-term current use of insulin 01/23/2023 Assessment & Plan (06/22/2023 12:26 AM EST): -A1C 11.2 -Check blood sugar 1-2 hours after every meal. -Continue use of glucose gel PRN. -Follow up with [facility] 2023. Chronic radicular lumbar pain 01/23/2023 Assessment & Plan (04/03/2024 4:35 PM EST): -Good engagement and participation with Group Medical Visit model -Encouraged multifactorial approach to pain control including pharm and non- pharm modalities -Pill Count and Utox as expected Assessment & Plan (01/16/2024 1:28 PM EDT): -Good engagement and participation with Group Medical Visit model -Encouraged multifactorial approach to pain control including pharm and non- pharm modalities -Pill Count and Utox as expected Assessment & Plan (11/14/2023 5:09 PM EDT): -Good engagement and participation with Group Medical Visit model -Encouraged multifactorial approach to pain control including pharm and non- pharm modalities -Pill Count as expected. UTOX positive for BUP, sent to lab for confirmation. Assessment & Plan (10/17/2023 2:36 PM EDT): -Good engagement and participation with Group Medical Visit model, today was first visit. -Encouraged multifactorial approach to pain control including pharm and non- pharm modalities -UTOX and Pill count as expected -Interested in trial of multiple topical analgesics after discussion with [facility] Pharmacist - meds sent to pharmacy below. Reviewed med use and SE Cholelithiasis 01/23/2023 Assessment & Plan (06/23/2023 9:44 AM EST): -Pain has improved. -Advised to keep Surgical consult with [facility] in 2 weeks. -Counseled to avoid fried and junk foods. -Follow up with GI at next available appointment. -Will need MRCP. -Order Labs to include CBC. Memory loss 01/23/2023 Leukocytosis 01/23/2023 Hemorrhoids 12/13/2022 Overview (12/13/2022): Hemorrhoids present Declines /rectal exam Assessment & Plan (12/13/2022 5:38 PM EDT): Rx anusol cream F/u PRN Bilateral leg edema 12/09/2022 Overview (12/13/2022): Chronic concern Treating Lasix 40 mg daily Assessment & Plan (12/13/2022 5:45 PM EDT): No sx of cellulitis or evidence of DVT on exam today Continue lasix Appt Nephrology 01/06/23 Rx compression stockings, DME request sent F/u 1 month with new PCP Gout 12/09/2022 Assessment & Plan (08/29/2023 2:37 PM EDT): I refilled his allopurinol today F/u with PCP Obesity with serious comorbidity 12/09/2022 Overview (12/13/2022): Severe obesity Comorbidities: abd pain, T2dm, chronic leg pain, CKD Assessment & Plan (12/13/2022 5:48 PM EDT): Pt interested in bariatric surgery Will refer weight mgmt F/u PRN Primary hypertension 12/09/2022 Assessment & Plan (04/07/2024 2:09 PM EST): - Cont current regimen, adjustments through nephrology PRN Amlodipine 5mg daily Furosemide 40mg daily Carvedilol 25mg BID Hold/discontinued as of Mar 2024: - olmesartan Health care maintenance 11/18/2022 Overview (12/13/2022): Immunizations: Up to date HIV: Nonreactive 12/06/22 Hep C: Nonreactive 12/06/22 Hepatitis B: Reactive surface antibodies 12/06/22 Colonoscopy: Completed a colonoscopy 2020 and had a cecum polyp. Biopsy tubular adenoma. repeat colonoscopy 7 years PSA: Discuss next visit Lung cancer: Never smoker Eye: 2022, f/u appt 01/2023 Dental: Refer pt [facility] on 12/13/22 Moderate persistent asthma 11/07/2022 Overview (11/07/2022): -The Pt saw Pulmonology in [place]105/21/2021 -stable with the use of Advair and Spiriva. -walking oximetry revealed stable oxygenation, however, demonstrated rapid induction of tachycardia. These findings suggest that part of his dyspnea is associated with deconditioning. He does not fulfill criteria for oxygen supplementation at this time. -PFTs reveal a restrictive pattern Assessment & Plan (11/18/2022 6:44 PM EDT): Refill inhalers F/u 1 month or sooner PRN Hepatic steatosis 04/05/2021 Overview (11/07/2022): - noted on CT Abdomen 03/30/21 -03/30/2021 CT ABDOMEN W WO IV CONTRAST HISTORY: LUQ abdominal pain, elevated lipase Liver: Diffuse steatosis. Gallbladder and bile ducts: There are gallstones in the gallbladder with no evidence of acute cholecystitis. raperitoneal gas. IMPRESSION: 1. Hepatic steatosis, 2. Gallstones in the gallbladder with no evidence of acute cholecystitis. Elevated parathyroid hormone 01/08/2021 Overview (12/13/2022): Elevated PTH on 12/06/22 Hx in the past. No current treatment Assessment & Plan (12/13/2022 5:37 PM EDT): Will refer pt to Endocrinology for further eval F/u PRN Vitamin D deficiency 01/08/2021 Overview (11/07/2022): The P 01/08/2021 13:09 Ref. Range 01/07/2021 Vitamin D, 25 OH, Total Latest Ref Range: 30 - 100 ng/mL 11 (L) Assessment & Plan (12/13/2022 5:40 PM EDT): Vit D was low on 12/06/22 Rx Vit D supplement Educated pt to take daily Pt agreed with plan F/u PRN with new PCP Ventral hernia 05/28/2020 Neuropathy due to type 2 diabetes mellitus 02/13 Overview (11/18/2022): -Pt continues to deal with bilateral Neuropathy of feet that Pt feels has gotten worse, particularly in the toes -Pt is currently taking gabapentin 800 mg TID & Cymbalta 60 mg BID -As Pt loses weight, decreases his insulin usage, use better food proportions her feet should decrease Assessment & Plan (11/18/2022 6:41 PM EDT): Refill Gabapentin, TID dosing Refill cymbalta Will focus on improving diabetic control Discuss patient educator referral at next visit F/u 1 month or sooner PRN 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 No acute ischemic infarct, acute intracranial hemorrhage, or mass effect. IMPRESSION: No pattern of cerebral atrophy to suggest a specific diagnosis. Chronic kidney disease (CKD) stage G3a/A3, moderately decreased glomerular filtration rate (GFR) between 45-59 mL/min/1.73 square meter and albuminuria creatinine ratio greater than 300 mg/g 01/30/2020 Overview (11/07/2022): -seen by nephrology 12/16/2021 - stable however overall appears to be slowly progressing likely iso poorly controlled DM - volume overloaded; lasix increased to 80mg bid - 3+ protein on UA from 09/26 - PTH in 07/27 was 137, Ca 10.1, PO4 3.5 - no indication for phos binders -improve BP and Blood glucose control Assessment & Plan (04/07/2024 2:05 PM EST): - Following with [facility] - Plan for upcoming renal biopsy - BP Medications have been adjusted through Neph office d/t fluctuating Creatinine levels. - Next labs through Neph: DUE. Encouraged pt to complete repeat lab work today and follow up with Nephology office as scheduled Assessment & Plan (12/13/2022 5:36 PM EDT): Pending appt 01/06/23 Recommended pt call weekly and see if there is a no show Assessment & Plan (11/18/2022 6:32 PM EDT): Refill lasix, rx 40 mg because kidney function unknown If stable will increase dose to previous rx by Nephrology Referred 07/03/23 F/u 1 month or sooner PRN Microalbuminuric diabetic nephropathy 09/26/2019 Overview (11/07/2022): The Pt has elevated Protein urea and continues to go to his appointments with his Renal Doctor Latest Reference Range & Units 09/09/21 02/15/22 Albumin/Creatinine Ratio, Urine, Random <30.0 mg/g Cr 4,684.9 (H) 3,168.6 (H) Constipation 08/14/2019 Benign tubular adenoma of large intestine 2019 Overview (11/07/2022): - colonoscopy on 09/04/2020 revealed tubular adenoma recommend to repeat the colonoscopy in 7 years for colon cancer screening purposes. Gastroesophageal reflux disease 03/16/2019 Overview (11/07/2022): - continues to take PPI daily Obstructive sleep apnea 02/08/2019 Overview (11/07/2022): -prior sleep study?where/when: + sleep apnea, begun on PAP -split PSG 11/16/2021: very severe associated with hypoxemia and hypercapnia, all diagnostic time supine with only a short period of diagnostic REM: Diagnostic AHI 79 /hr, AHI4% 79 /hr, mean SpO2 87 %, billy SpO2 50 %, 37 % time with SpO2 < 89%, TcCO2 max of 54 mmHg, Excellent response to BPAP S on 17/10 cm. -auto BPAP ordered, IPAP max 22, EPAP Min 10, PS 7 Last Assessment & Plan: 11/16/2021 Sleep Apnea Report: IMPRESSION : ??-Obstructive sleep apnea (G47.33), very severe associated with hypoxemia and hypercapnia, all diagnostic time supine with only a short period of diagnostic REM: Diagnostic AHI 79 /hr, AHI4% 79 /hr, mean SpO2 87 %, billy SpO2 50 %, ?? 37 % time with SpO2 < 89%, TcCO2 max of 54 mmHg. ??-Excellent response to positive airway pressure therapy in BPAP S mode, with optimal setting on this night seen at 17/10 cm. CPAP mode was not effective for treatment of sleep disordered breathing. RECOMMENDATIONS / PLAN : -Current [employer] recommendations for treatment of obstructive sleep apnea include 1) encouraging weight loss in overweight or obese patients, 2) positive airway pressure (PAP) as initial therapy, and 3) oral appliance therapy as alternative therapy for patients who prefer oral appliances or for those with adverse effects associated with PAP. Additional treatment options in select patients include nasal expiratory resistance device therapy (EPAP), orthognathic and ENT procedures, and positional therapy (avoiding the supine sleep position).Other general recommendations include avoiding airway irritants such as tobacco smoke, using alcohol in moderation, and using sedatives, narcotics, and sleeping pills with caution. Patients with hypersomnia due to sleep apnea or any condition should be vigilant while driving and refrain from operating a motor vehicle if sleepy. -The patient will be contacted regarding study results. PAP has been ordered (AutoBPAP at IPAP max 22, EPAP Min 10, PS 7, AirFit F20 interface, heated humidification), with followup at the sleep center through the PAP management program. Repeat baseline ABG indicated once on effective PAP. CCM: 20 minutes 11/28/2021 Deep Pruitt APRN Assessment & Plan (04/07/2024 2:01 PM EST): Last sleep study: split PSG 11/16/2021: very severe associated with hypoxemia and hypercapnia, all diagnostic time supine with only a short period of diagnostic REM: Diagnostic AHI 79 /hr, AHI4% 79 /hr, mean SpO2 87 %, billy SpO2 50 %, 37 % time with SpO2 < 89%, TcCO2 max of 54 mmHg, Excellent response to BPAP S on 17/10 cm. - Following with [facility] Pulmonology - Dr. Vieira - Encouraged to follow up with specialist regarding DME order and new sleep study PRN Chronic post-traumatic stress disorder (PTSD) Need for home health care 01/01/2019 Overview (11/07/2022): Pt is still in the process of establishing a Visiting Nurse for home care to help manage his multiple medications Hyperlipidemia associated wi th type 2 diabetes mellitus ([facility]) 12/10/2018 Overview (11/07/2022): - LDL 90 01/25/2021 -atorvastatin (LIPITOR) 80 mg tablet started 12/02/2020 - ezetimibe (ZETIA) 10 mg tablet 12/02/2020 Resolved Problems Problem Noted Date Diagnosed Date Resolved Date Atypical chest pain 11/13/2023 11/14/19 Assessment & Plan (11/13/2023 1:07 PM EDT): Apparently for 6 mo or so, recently seen in the ED with no evidence of ACS. However given relatively new onset of sxs and significant risk factors, I advised him to reschedule colonoscopy UNTIL AFTER he sees cardiology next month. I discussed with him and his the importance of NOT MISSING this appt. If GI procedure is deemed to be urgent, he should go ahead with it. GI provider should be aware that they may or not need additional precautions during the procedure. Abdominal pain 09/19/2023 11/01/2023 Elevated lipase 05/18/2023 11/01/2023 Cervical radiculopathy, acute 12/09/2022 01/23/2023 Assessment & Plan (12/09/2022 1:17 PM EDT): He probably has DJD c-spine as he has known DJD L-spine. Order Xrays and fu w PCP Use tyelnol prn and current meds Take tramadol 25-50 mg For up to 5d only. I told him that it is not a intermediate med. He will fu w PCP next week. Use heat to affected area Acute pain of left shoulder 12/09/2022 01/23/2023 Assessment & Plan (12/09/2022 1:16 PM EDT): It seems to be radiated from cervical radiculopathy, he may also have underlying DJD shoudlers Use tyelnol prn and current meds Take tramadol 25-50 mg For up to 5d only. I told him that it is not a intermediate med. He will fu w PCP next week. Use heat to affected area Diabetes mellitus with diabetic nephropathy 12/09/2022 12/13/2022 History of colonoscopy 12/09/202201/23 Overview (12/09/2022): information and pathology of colonospcy in [facility] 09-09-2020 note Hyperlipidemia due to type 2 diabetes mellitus (CMS/HCC) 12/09/2022 01/23/2023 Abnormal gait 12/09/2022 01/23/2023 Overview (12/09/2022): CVA 2017 Asthma, mild 12/09/2022 01/23/2023 Tubular adenoma of colon 12/09/2022 Overview (12/09/2022): Completed a colonoscopy 2020 and had a cecum polyp. Biopsy tubular adenoma. 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 9) with comorbidity 12/09/2022 12/13/2022 Constipation in male 12/09/2022 023 Steatosis of liver 12/09/2022 Overview (12/09/2022): per note - CT at outside location GERD without esophagitis 12/09/2022 REGI (obstructive sleep apnea) 12/09/2022 01/23/2023 Ingrown right greater toenail 04/21/2022 01/23/2023 Kidney pain 02/17/2022 01/23/2023 Overview (11/07/2022): 06/01/2022 US RENAL. HISTORY: r/o kidney stone. COMPARISON: US RENAL ; CT ABDOMEN W WO IV CONTRAST . TECHNIQUE: Grayscale and color Doppler imaging were performed. FINDINGS: RIGHT KIDNEY: Size: 14.8 cm in maximal sagittal dimension. Echogenicity: Normal. Hydronephrosis: Not present. Calculi: None visualized. Focal lesions: None. LEFT KIDNEY: Size: 14.2 cm. in maximal sagittal dimension. Echogenicity: Normal. Hydronephrosis: Not present. Calculi: None visualized. Focal lesions: None. URINARY BLADDER: Volume: Underdistended, which limits evaluation. Wall thickness: Limited evaluation in the setting of underdistention. Focal lesions: None are seen, however under distention limits evaluation. Ureteral jets: Observed bilaterally. IMPRESSION: No sonographic evidence for renal calculi. Acquired hypothyroidism 09/12/2021 08/0 12/2022 Lymph nodes enlarged 04/09/2021 024 Overview (11/07/2022): Recent CT of Chest showed in the Mediastinum: Prevascular node is enlarged measuring 1.5 x 1.1 cm (4:86); left paratracheal node measuring 1.4 x 1.2 cm (4:170), will continue to monitor and repeat scan in 6 months 03/30/2021 CT CHEST WO IV CONTRAST HIGH RESOLUTION INDICATION: abnormal CXR, restrictive physiology on PFTs, SHELLEY; evaluate for pulmonary edema, ILD, etc.. COMPARISON: None. TECHNIQUE: Contiguous CT axial sections were obtained from the upper thorax to the upper abdomen during inspiration and expiration. No intravenous contrast was administered. Exam quality: Adequate inspiration: Yes, Adequate expiration: Yes FINDINGS: Lungs: Subsegmental atelectasis in the lower lobes. Scattered calcified granulomas. Mild elevation of the left hemidiaphragm. Suboptimal expiratory images with few areas of air trapping in the lower lobes. Central airways: The central airways are patent. Pleura: No pleural effusions. Mediastinum: Prevascular node is enlarged measuring 1.5 x 1.1 cm (4:86); left paratracheal node measuring 1.4 x 1.2 cm (4:170). Heart and great vessels: The heart size is within normal limits; no pericardial effusion; mild coronary artery calcifications. Common origin of brachiocephalic artery and left common carotid artery, normal anatomic variant. Upper abdomen: Hepatic steatosis. Bones: No aggressive bone lesions. IMPRESSION: No evidence of interstitial lung disease or pulmonary edema. Suboptimal expiratory images with few areas of air trapping in the lower lobes. Subsegmental atelectasis in the lower lobes. Enlarged prevascular node, nonspecific. Can be followed up in 3-6 months. Fatty liver. Chronic gout of foot due to renal impairment 0 01/23/2023 Overview (11/18/2022): -currently on allopurinol (ZYLOPRIM) 100 mg daily Assessment & Plan (11/18/2022 6:42 PM EDT): Refill allopurinol States he has not been out of the medication and is taking daily No concern for refill causing gout flare F/u 1 month or sooner PRN 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 09/26/2019 01/23/2023 Overview (11/07/2022): - 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 - lidocaine patches ordered today to help with pain control, trying to avoid Tramadol for now due to constipation Assessment & Plan (11/18/2022 6:47 PM EDT): Will hold Tramadol at this time Continue Lidocaine patches, Voltaren gel Cymbalta 60 mg BID may also improve pain F/u 1 month or sooner PRN Class 3 severe obesity with serious comorbidity and body mass index (BMI) of 40.0 to 44.9 in adult 09/09/2019 12/13/2022 Asthma exacerbation, mild 08/14/2019 Bilateral hip joint arthritis 02/07/2019 01/23/2023 Schizoaffective disorder, depressive type 01/14/2019 05/17/2023 Hypertension 12/10/2018 12/13/2022 Assessment & Plan (12/09/2022 12:54 PM EDT): Refill for losartan sent at patient's request Encounters Date Type Department Care Team Description 05/30/2024 Telephone [facility] [address] [place] [address] Katrin Santoyo MD Nurse Triage 05/22/2024 Telephone [facility] [address] [place] [address] Katrin Santoyo MD FYI 05/17/2024 Refill [facility] [address] [place] [address] Moriah Herbert, [employer] Chronic radicular lumbar pain 05/17/2024 Refill [facility] [address] [place] [address] Shanna Henao MD Chronic radicular lumbar pain 05/12/2024 Refill [facility] [address] [place] [address] Katrin Santoyo MD 04/30/2024 Telephone [facility] [address] [place] [address] Katrin Santoyo MD Nurse Triage 04/26/2024 Refill [facility] [address] [place] [phone] Katrin Santoyo MD 04/18/2024 Refill [facility] [address] [place] [address] Katrin Santoyo MD 04/16/2024 Telephone [facility] [address] [place] [phone] Katrin Santoyo MD Request For Order(s) 04/15/2024 Telephone [facility] [address] [place] [phone] Tamiko Bray MA Appointment 04/12/2024 Telephone [facility] [address] [place] [phone] Tamiko Bray MA Durable Medical Equipment 04/10/2024 Telephone [facility] [address] [place] [phone] Katrin Santoyo MD Referral; Durable Medical Equipment 04/10/2024 Orders Only GENERIC EXTERNAL DATA DEPARTMENT Provider, Generic External Data 04/09/2024 Telephone [facility] [address] [place] [phone] Katrin Santoyo MD 04/08/2024 Orders Only [facility] [address] [place] [address] Moriah Herbert, [employer] Multifocal pneumonia (Primary Dx) [facility] [address] [place] [address] AshvaniaMoriah, [employer] Lung infection 04/03/2024 10:15 AM EST Office Visit [address] [address] Ash[place]ia Moriah, [employer] Multifocal pneumonia (Primary Dx); Acute kidney injury superimposed on CKD ([facility]) ([facility]); Obstructive sleep apnea; On home oxygen therapy; Chronic kidney disease (CKD) stage G3a/A3, moderately decreased glomerular filtration rate (GFR) between 45-59 mL/min/1.73 square meter and albuminuria creatinine ratio greater than 300 mg/g ([facility]); Primary hypertension 04/03/2024 Orders Only GENERIC EXTERNAL DATA DEPARTMENT Provider, Generic External Data 04/03/2024 Travel 04/03/[address] [address] Katrin Santoyo MD FYI 04/03/[address] [address] Sean Danielson MA Chart Prep 04/02/2024 11:00 AM EST Office Visit [address] [address] Moriah Herbert, [employer] Chronic radicular lumbar pain (Primary Dx); Long-term current use of opiate analgesic 04/02/2024 Travel 04/02/[address] [address] Katrin Santoyo MD callback requested 03/27/2024 Orders Only GENERIC EXTERNAL DATA DEPARTMENT Provider, Generic External Data 03/25/[address] [address] Katrin Santoyo MD callback requested 03/20/2024 Orders Only GENERIC EXTERNAL DATA DEPARTMENT Provider, Generic External Data 03/19/2024 Orders Only [address] [address] Katrin Santoyo MD Type 2 diabetes mellitus with stage 3a chronic kidney disease, with long-term current use of insulin ([facility]) (Primary Dx) 03/14/2024 9:15 AM EST Office Visit [facility] [address] [place] [address] Angie Ackerman MD Chronic radicular lumbar pain (Primary Dx); Moderate persistent asthma without complication 03/14/2024 Travel 03/13/2024 5:20 PM EST Office Visit [facility] [address] [place] [address] Katrina Ward NP Nasal congestion (Primary Dx); Moderate persistent asthma without complication; Elevated blood pressure reading in office with diagnosis of hypertension 03/13/2024 Travel from Last 3 Months Immunizations Name Administration Dates Next Due Hep B, adult 04/05/2017,10/05/2016,08/17/2016 Influenza injectable quadriv alent IIV4 with preservative 02/14/2018,02/03/2017 Influenza injectable quadriv alent preservative free 01/23/2023,03/24/2022,01/21/2021,02/04 Influenza, seasonal, injecta ble, preservative free 02/01/2024 Pfizer Covid-19 Vaccine 12+ 02/01/2024 Pneumococcal Conjugate PCV 20 03/24/2022 Pneumococcal Conjugate PCV 7 03/24/2022 Pneumococcal Polysaccharide PPSV23 01/21/2021 Tdap 03/24/2022,10/05/2016 Family History Medical History Relation Name Comments Colon cancer Father Anxiety disorder Mother Colon cancer Mother Colon cancer Other niece Breast cancer Sister Relation Name Status Comments Father Mother Other niece Sister Social History Tobacco Use Types Packs/Day Years [...] Orientation Straight 11/07/2022 4: 48 PM EDT Last Filed Vital Signs Vital Sign Reading Time Taken Comments Blood Pressure 158/90 04/03/2024 10:23 AM EST Pulse 87 04/03/2024 10:20 AM EST Temperature 36.1 ??C (96.9 ??F) 04/03/2024 10:[address] Respiratory Rate 24 04/03/2024 10:20 AM EST Oxygen Saturation 99% 04/03/2024 10:20 AM EST Inhaled Oxygen Concentration - - Weight 114 kg (251 lb 2 oz) 04/03/2024 10:20 AM EST Height 172.7 cm (5' 8 ) 04/03/2024 10:20 AM EST Body Mass Index 38.18 04/03/2024 10:20 AM EST Plan of Treatment Upcoming Encounters Date Type Department Care Team (Late st Contact Info) Description 06/04/2024 11:00 AM EST Office Visit [facility] [address] [place] [address] Health Maintenance Due Date Last Done Comments CT Colonography 1970 Colonoscopy 1970 Colorectal Cancer Screening 1970 FIT DNA/Cologuard 1970 FIT 1970 FOBT 1970 Sigmoidoscopy 1970 Eye Exam 1980 Alcohol/Substance Use Screening 1982 Hepatitis A Vaccines (1 of 2 - Risk 2-dose series) 1989 Dental Oral Exam 02/15/2019 08/15/2018 Dental Prophylaxis 03/07/2019 09/04/2018 Dental X-Ray: Bitewings 08/17/2019 08/15/2018 Zoster Vaccines (1 of 2) 2020 Dental X-Ray: Full Mouth 08/16/2021 08/15/2018 SDOH Screening 06/06/2024 06/06/2023 Diabetes: Hemoglobin A1C 06/27/2024 024, 02/01/2024, 09/19/2023, Additional history exists Lipid Panel 09/18/2024 09/19/2023, 05/08, 12/06/2022 Depression Screening 10/30/2024 10/31/2023, 10/31/19 Diabetes: Foot Exam 02/11/2025 02/12/2024, 11/13/2023, 11/13/2023, Additional history exists Tobacco Screening 04/03/2025 04/03/2024 DTaP/Tdap/Td Vaccines (3 - Td or Tdap) 03/24/2032 03/24/2022, 10/05/2016 RSV Patients and Patients Aged 60 years or older (1 - 1-dose 75+ series) 2045 Hepatitis B Vaccines Completed 04/05/2017, 10/05/2016, 08/17/2016 Pneumococcal Vaccine: Pediatrics (0 to 5 Years) and At-Risk Patients (6 to 64 Years) Completed 03/24/2022, 03/24/2022, 01/21/2021 HIV Screening Completed 12/06/2022 Hepatitis C Screening Completed 12/06/2022 COVID-19 Vaccine Completed 02/01/2024, 12/2020, 08/28/2020, Additional [...] patient's age to complete this topic Meningococcal Vaccine Aged Out No sara asher eligible based on patient's age to complete this topic RSV under 20 months Aged Out No longe r eligible based on patient's age to complete this topic Rotavirus Vaccines Aged Out No longer eligible based on patient's age to complete this topic Goals Goal Patient Goal Type Associated Problems Recent Progress Patient-Stated? Author Blood Pressure < 140/90 Blood Pressure 158/90(2023 10:23 AM EST) No Eve Guzman PharmD Hemoglobin A1c < 7 Result Component 12.5(03/27/20 3:40 PM EST) No Eve Guzman PharmD Procedures Procedure Name Priority Date/Time Associated Diagnosis Comments BASIC METABOLIC PANEL Routine 04/10/2024 11:51 AM EST CREATININE, RANDOM URINE Routine 04/03/2024 11:51 AM EST BASIC METABOLIC PANEL Routine 04/03/2024 11:51 AM EST XR CHEST 2 VIEWS Routine 04/03/2024 11:2 4 AM EST Multifocal pneumonia POCT RIKKI-14 URINE DRUG SCREEN Routine 04/02/2024 1:31 PM EST Chronic radicular lumbar pain Long-term current use of opiate analgesic VITAMIN D 1,25 DIHYDROXY Routine 03/27/2024 4:01 PM EST IMMUNOFIXATION, SERUM Routine 03/27/2024 4:01 PM EST COMPLEMENT COMPONENT C4C Routine 03/27/2024 4:01 PM EST COMPLEMENT COMPONENT C3C Routine 03/27/2024 4:01 PM EST PHOSPHATE ( PHOSPHORUS) Routine 03/27/2024 4:01 PM EST COMPREHENSIVE METABOLIC PANEL Routine 03/27/2024 4:01 PM EST PTH, INTACT WITHOUT CALCIUM Routine 03/27/2024 4:01 PM EST PROTHROMBIN TIME-INR Routine 03/27/2024 4:01 PM EST IMMUNOFIXATION, URINE Routine 03/27/2024 3:57 PM EST ALBUMIN, RANDOM URINE W/CREATININE Routine 03/27/2024 3:57 PM EST HEMOGLOBIN A1C Routine 03/27/2024 3:40 PM EST CBC WITH AUTO DIFFERENTIAL Routine 03/27/2024 3:40 PM EST US RENAL BI Routine 03/25/2024 1:17 PM EST GLUCOSE, WHOLE BLOOD Routine 03/20/2024 3:43 PM EST GLUCOSE, WHOLE BLOOD Routine 03/20/2024 2:26 PM EST VENOUS BLOOD GAS Routine 03/20/2024 1:06 PM EST HEPATIC FUNCTION PANEL Routine 12:58 PM EST LACTIC ACID Routine 03/20/2024 12:58 PM EST APTT Routine 03/20/2024 12:58 PM EST PROTHROMBIN TIME-INR Routine 03/20/2024 12:58 PM EST XR CHEST 2 VIEWS Routine 03/20/2024 12:0 5 PM EST COMPLETE BLOOD COUNT MAN DIF Routine 03/20/2024 11:36 AM EST HIGH SENSITIVITY TROPONIN I Routine 03/20/2024 11:36 AM EST BASIC METABOLIC PANEL Routine 03/20/2024 11:36 AM EST CBC WITH AUTO DIFFERENTIAL Routine 03/20/2024 11:36 AM EST SARS COV2/INFLUENZA A/B AND RSV RNA QL NAAT Routine 03/20/2024 11:36 AM EST POCT RAPID COVID ANTIGEN Routine 03/13/2024 6:11 PM EST Nasal congestion POCT INFLUENZA A (ID NOW RAPID MOLECULAR) Routine 03/13/2024 6:11 PM EST Nasal congestion POCT INFLUENZA B (ID NOW RAPID MOLECULAR) Routine 03/13/2024 6:11 PM EST Nasal congestion LIPID PANEL, STANDARD Routine 09/19/2023 1:43 PM EDT Type 2 diabetes mellitus with stage 3a chronic kidney disease, with long-term current use of insulin ([facility]) HEPATITIS PANEL, GENERAL Routine 12/06/2022 10:21 AM EDT Health care maintenance HIV ANTIBODY/ANTIGEN ([place] DPH) Routine 12/06/2022 10:21 AM EDT PROPHYLAXIS - ADULT Routine 09/04/2018 1 2:00 AM EDT DIAGNOSTIC - DIAGNOSTIC IMAGING - INTRAORAL - COMPREHENSIVE SERIES OF RADIOGRAPHIC IMAGES Routine 08/15/2018 12:00 AM EDT COMPREHENSIVE ORAL EVALUATION - NEW OR ESTABLISHED PATIENT Routine 08/15/2018 12:00 AM EDT from Last 3 Months or Most Recently Relevant to Health Maintenance Results * (ABNORMAL) Basic Metabolic Panel (04/10/2024 11:51 AM EST) Only the most recent of3 resultswithin the time period is included. Sodium 140 135 - 145 mmol/L [facility] Potassium 4.9 3.3 - 5.1 mmol/L [facility] Chloride 107 96 - 108 mmol/L [facility] Carbon Dioxide 28 22 - 29 mmol/L [facility] Anion Gap 10(L) 12 - 20 [facility] Urea Nitrogen (BUN) 35(H) 9 - 16 mg/dL [facility] Creatinine, Serum 3.01(H) 0.5 - 1.4 mg/dL [facility] Estimated Glomerular Filt Rate 22 [facility] Comment:Chronic Kidney Disea se: Estimated GFR < 60 mL/min/1.13x0Kskier Kidney Disease: Estimated GFR < 15 mL/min/1.73m2 Glucose 288(H) 60 - 115 mg/dL [facility] Calcium 9.2 8.4 - 10.2 mg/dL [facility] 04/10/2024 11:5 1 AM EST 04/10/2024 11:58 AM EST Generic External Data Provider LAB BLOOD ORDERAB LES Final Result Performing Organization Address [facility] Co de Phone Number [facility] [address] [place] [phone] * Creatinine, Random Urine (04/03/2024 11:51 AM EST) Creatinine, Urine 80.68 mg/dL [facility] 04/03/2024 11:5 1 AM EST 04/03/2024 1:15 PM EST Generic External Data Provider LAB URINE ORDERAB LES Final Result Performing Organization Address [facility] de Phone Number [facility] [address] [place] [phone] * XR Chest 2 Views (04/03/2024 11:24 AM EST) Only the most recent of2 resultswithin the time period is included. Anatomical Region Laterality Modality Chest Radiographic Cierra ging 04/03/2024 11:2 4 AM EST Narrative 04/04/2024 11:05 AM EST ?[facility] ?[address] ?[place] [address] ?XRay Report ? Signed ? Patient: Bhardwaj Sebastian,Darrel ?MR#: [id number] ?? [id number] ? : 1970 ?Acct:[id number] ? Age/Sex: 53 / M ?ADM Date: 04/03/24 ? Loc: HO.HHCX ? Attending Dr: Moriah LEACH ? Ordering Physician: Moriah Herbert ?? Date of Service: 04/03/24 ?? Procedure(s): XR chest 2V ?? Accession Number(s): [id number] ? cc: Moriah Herbert ? EXAMINATION: ?? XR CHEST 2 VIEWS ? CLINICAL INFORMATION: ?? Follow-up pneumonia. ? COMPARISON: ?? Prior chest radiographs, most recently 04/06/2024. ? TECHNIQUE: ?? Frontal and lateral views of the chest were obtained. ? FINDINGS: ?? The heart, great vessels, pulmonary vasculature and mediastinum are ?? normal. There is interim improvement in patchy right upper and lower ?? lobe airspace disease, without full resolution. No pleural effusion or ?? pneumothorax is seen. There is no acute osseous abnormality. ? XR/XR chest 2V ?? IMPRESSION: ?? Improved patchy right lung infiltrates are seen, without full ?? resolution. ? Electronically signed by: ??Blake Magana MD ??04/04/2024 11:02 AM EST RP ? Dictated By: ?Blake Magana MD ? Signed By: ?<Electronically signed by Blake Magana MD in OV> ? 04/04/24 1102 ? DD/ 1124 ? TD/TT: 04/03/24 1136 ? Travel Specialist: [facility] ? Procedure Note Cliff Whyte - 04/04/[address] [address] XRay Report Signed Patient: Darrel HaganMR#: [id number] : 1970Acct:[id number] Age/Sex: 53 / MADM Date: 04/03/24 Loc: HO.HHCX Attending Dr: Moriah Herbert [employer] Ordering Physician: Moriah Herbert Date of Service: 04/03/24 Procedure(s): XR chest 2V Accession Number(s): [id number] cc: Moriah Herbert EXAMINATION: XR CHEST 2 VIEWS CLINICAL INFORMATION: Follow-up pneumonia. COMPARISON: Prior chest radiographs, most recently 04/06/2024. TECHNIQUE: Frontal and lateral views of the chest were obtained. FINDINGS: The heart, great vessels, pulmonary vasculature and mediastinum are normal. There is interim improvement in patchy right upper and lower lobe airspace disease, without full resolution. No pleural effusion or pneumothorax is seen. There is no acute osseous abnormality. XR/XR chest 2V IMPRESSION: Improved patchy right lung infiltrates are seen, without full resolution. Electronically signed by: Blake Magana MD 04/04/2024 11:02 AM EST RP Dictated By: Blake Magana MD Signed By: <Electronically signed by Blake Magana MD in OV> 04/04/24 1102 DD/ 1124 TD/TT: 04/03/24 1136 Travel Specialist: IAN Moriah Herbert [employer] IMG XR PROCEDURES Final Result * POCT RIKKI-14 Urine Drug Screen (04/02/2024 1:31 PM EST) Urine Urine specimen obtained by clean catch procedure / Unknown 04/02/2024 1:31 PM EST Narrative Gabriela Rea RN - 04/02/2024 1:31 PM EST .UTOX cup Lot#[id number] Exp. 12/25/25 Internal Pass Control Katrin López MD POINT OF CARE IRAM T ENTER/EDIT ORDERABLES Final Result * (ABNORMAL) Vitamin D 1,25 dihydroxy (03/27/2024 4:01 PM EST) Vit D (1,25-Dihydroxy) Total 17(A) 18 - 72 pg/mL [facility] VITAMIN D (1,25 OH) D3 17 pg/mL [facility] Vitamin D (1,25 OH) D2 <8 pg/mL [facility] Comment:Vitamin D3, 1,25(OH) 2 indicates both endogenousproduction and supplementation. Vitamin D2, 1,25(OH)2is an indicator of exogenous sources, such as diet orsupplementation. Interpretation and therapy are basedon measurement of Vitamin D,1,25(OH)2, Total.This test was developed and its analyticalperformance characteristics have been determinedby [employer] [place], [place].It has not been cleared or approved by the FDA. Thisassay has been validated pursuant to the CLIAregulations and is used for clinical purposes.THIS TEST WAS PERFORMED AT:[id number] [place] [phone] HAILE MD,PHD 03/27/2024 4:01 PM EST 03/27/2024 4:01 PM EST Generic External Data Provider LAB BLOOD ORDERAB LES Final Result Performing Organization Address [facility]/ZIP Co de Phone Number [facility] [address] [place] [phone] * Prothrombin Time-INR (03/27/2024 4:01 PM EST) Only the most recent of2 resultswithin the time period is included. Prothrombin Time 11.0 10.9 - 12.4 SEC [facility] INTERNATIONAL NORM RATIO 0.9 0.9 - 1.1 [facility] Comment:INTERNATIONAL NORMAL IZED RATIO (INR) REFERENCE RANGES Reference RangeFor patients not on anticoagulant therapy: 0.9 - 1.1INR ranges for oral anticoagulanttherapy:For prevention and treatment of venous thrombosis and pulmonary embolism: 2.0 - 3.0For acute myocardial infarction with aspirin therapy: 2.0 - 3.0For acute myocardial infarction without aspirin therapy: 3.0 - 4.0For patients with mechanical prosthetic heart valves: 2.5 - 3.5 03/27/2024 4:01 PM EST 03/27/2024 4:01 PM EST us Generic External Data Provider LAB BLOOD ORDERAB LES Final Result Performing Organization Address [facility]/ZIP Co de Phone Number [facility] [address] [place] [phone] * (ABNORMAL) Immunofixation, Serum (03/27/2024 4:01 PM EST) IMMUNOGLOBULIN G 605 600 - 1640 mg/dL [facility] IMMUNOGLOBULIN A 279 47 - 310 mg/dL [facility] Immunoglobulin M 33(A) 50 - 300 mg/dL [facility] Comment:THIS TEST WAS PERFOR MED AT:[facility] [address] [phone] ALEXANDER MD Immunofixation Result SEE NOTE [facility] Comment:Faint IgG kappa mono clonal band present. 03/27/2024 4:01 PM EST 03/27/2024 4:01 PM EST Generic External Data Provider LAB BLOOD ORDERAB LES Final Result Performing Organization Address [facility]/ZIP Co de Phone Number [facility] [address] [place] [phone] * (ABNORMAL) Complement Component C3c (03/27/2024 4:01 PM EST) Complement C3 204(A) 82 - 185 mg/dL [facility] Comment:THIS TEST WAS PERFOR MED AT:[facility] [address] [phone] ALEXANDER MD 03/27/2024 4:01 PM EST 03/27/2024 4:01 PM EST Generic External Data Provider LAB BLOOD ORDERAB LES Final Result Performing Organization Address [facility]/ZIP Co de Phone Number [facility] [address] [place] [phone] * (ABNORMAL) Complement Component C4c (03/27/2024 4:01 PM EST) Complement C4 56(A) 15 - 53 mg/dL [facility] Comment:THIS TEST WAS PERFOR MED AT:[facility] [address] [phone] ALEXANDER MD 03/27/2024 4:01 PM EST 03/27/2024 4:01 PM EST Generic External Data Provider LAB BLOOD ORDERAB LES Final Result Performing Organization Address [facility] Co de Phone Number [facility] [address] [place] [phone] * Phosphate (As Phosphorus) (03/27/2024 4:01 PM EST) Phosphorus 4.0 2.7 - 4.5 mg/dL [facility] 03/27/2024 4:01 PM EST 03/27/2024 4:01 PM EST Generic External Data Provider LAB BLOOD ORDERAB LES Final Result Performing Organization Address [facility] de Phone Number [facility] [address] [place] [phone] * (ABNORMAL) PTH, Intact Without Calcium (03/27/2024 4:01 PM EST) Pathologist [facility] Parathyroid Hormone, Intact 498.5(H) 8.7 - 77.1 pg/mL [facility] 03/27/2024 4:01 PM EST 03/27/2024 4:01 PM EST Generic External Data Provider LAB BLOOD ORDERAB LES Final Result Performing Organization Address [facility] de Phone Number [facility] [address] [place] [phone] * (ABNORMAL) Comprehensive Metabolic Panel (03/27/2024 4:01 PM EST) Sodium 136 135 - 145 mmol/L [facility] Potassium 4.8 3.3 - 5.1 mmol/L [facility] Chloride 102 96 - 108 mmol/L [facility] Carbon Dioxide 24 22 - 29 mmol/L [facility] Anion Gap 15 12 - 20 [facility] Urea Nitrogen (BUN) 59(H) 9 - 16 mg/dL [facility] Creatinine, Serum 3.95(H) 0.5 - 1.4 mg/dL [facility] Estimated Glomerular Filt Rate 16 [facility] Comment:Chronic Kidney Disea se: Estimated GFR < 60 mL/min/[id number] Kidney Disease: Estimated GFR < 15 mL/min/1.73m2 Glucose 502(HH) 60 - 115 mg/dL [facility] Comment:Critical value for t est(s): GLU Results called to and readback by: JUANITO Person calling: BRENDON Date: 03/27/24Time: 1745 Calcium 9.2 8.4 - 10.2 mg/dL [facility] Bilirubin, Total 0.1 0.0 - 1.0 mg/dL [facility] Aspartate Amino Transferase 24 5 - 37 U/L [facility] Alanine Aminotransferase 24 0 - 40 U/L [facility] Total Protein 6.2(L) 6.5 - 8.0 g/dL [facility] Albumin Level 2.6(L) 3.5 - 5.0 g/dL [facility] Alkaline Phosphatase 140(H) 39 - 117 U/L [facility] 03/27/2024 4:01 PM EST 03/27/2024 4:01 PM EST us Generic External Data Provider LAB BLOOD ORDERAB LES Final Result [facility] [address] [place] [phone] * Immunofixation (CHRISTIANE), Urine (03/27/2024 3:57 PM EST) CHRISTIANE Interpretation [facility] Comment:No monoclonal protei ns detected.The supplier of the testing reagents for this assayhas changed. Detection of small monoclonal proteins mayvary by test system.THIS TEST WAS PERFORMED AT:[facility] [address] [phone] ALEXANDER MD 03/27/2024 3:57 PM EST 03/27/2024 4:37 PM EST Generic External Data Provider LAB URINE ORDERAB LES Final Result Performing Organization Address [facility] Co de Phone Number [facility] [address] [place] [phone] * (ABNORMAL) Albumin, Random Urine W/Creatinine (03/27/2024 3:57 PM EST) Creatinine, Urine 65.94 mg/dL [facility] Microalbumin Urine >2,000.0 mg/L [facility] Microalbum Creatinine Ratio Ur 3,033.0(H ) <30 ug/mg cr [facility] Comment:Albumin/Creatinine R atio Reference Ranges: Normal: < 30 ug/mg creatinine Microalbuminuria: 30 - 300 ug/mg creatinineClinical Albuminuria: > 300 ug/mg creatinine 03/27/2024 3:57 PM EST 03/27/2024 4:37 PM EST us Generic External Data Provider LAB URINE ORDERAB LES Final Result Performing Organization Address [facility] Co de Phone Number [facility] [address] [place] [phone] * (ABNORMAL) CBC auto differential (03/27/2024 3:40 PM EST) White Blood Count 12.3(H) 4.8 - 10.8 X10*3/uL [facility] Red Blood Count 4.57(L) 4.60 - 5.80 X10*6/uL [facility] Hemoglobin 12.7(L) 14.0 - 18.0 g/dl [facility] Hematocrit 40.5(L) 42.0 - 52.0 % [facility] Mean Corpuscular Volume 88.6 80.0 - 98.0 fL [facility] Mean Corpuscular Hemoglobin 27.8 27.0 - 33.0 pg [facility] Mean Corpuscular HGB Conc 31.4 31.0 - 36.0 g/dl [facility] Red Cell Distribution Width 14.4 11.0 - 16.0 % [facility] Platelet Count 402(H) 160 - 400 X10*3/uL [facility] Mean Platelet Volume 12.1 9.4 - 12.4 fL [facility] Neutrophils Percent Auto 68.8 45 - 73 % [facility] Imm Gran Pct Auto 1.1(H) 0.0 - 0.4 % [facility] Lymphocytes Percent Auto 18.6(L) 20 - 40 % [facility] Monocytes Percent Auto 8.6 2 - 11 % [facility] Eosinophils Percent Auto 2.4 0 - 4 % [facility] Basophils Percent Auto 0.5 0 - 2 % [facility] NRBC Pct Auto 0.0 0.0 - 0.2 /100WBC [facility] Neutrophils Absolute Auto 8.4(H) 2.0 - 8.3 x10*3/uL [facility] Imm Gran Abs Auto 0.14(H) 0.00 - 0.03 X10*3/uL [facility] Lymphocytes Absolute Auto 2.3 1.2 - 4.9 X10*3/uL [facility] Monocytes Absolute Auto 1.1 0.1 - 1.2 X10*3/uL [facility] Eosinophils Absolute Auto 0.3 0.0 - 0.4 X10*3/uL [facility] Basophils Absolute Auto 0.1 0.0 - 0.2 X10*3/uL [facility] NRBC Abs Auto 0.000 0.0 - 0.012 X10*3/uL [facility] 03/27/2024 3:40 PM EST 03/27/2024 4:52 PM EST us Generic External Data Provider LAB BLOOD ORDERAB LES Final Result [facility] [address] [place] [phone] * (ABNORMAL) Hemoglobin A1c (03/27/2024 3:40 PM EST) Hemoglobin A1c 12.5(H) <6.0 % [facility] Comment:Hemoglobin A1C Refer ence Range Adults: 4.8 - 6.0 % Non diabetic: < 6.0 % Goal: < 7.0 %Additional Action Suggested: > 8.0 %Note: Hemoglobin A1c results are invalid for patients with abnormal amounts of HbF. Blood transfusions may impact the HbA1c concentration in the patient sample. Estimated Average Glucose 312 mg/dL [facility] Comment:eAG = Estimated ave rage glucose which is %A1C expressed asaverage glucose, using the formula of the T1Y-IqrhxbqTrrqqpm Glucose study (ADAG), Diabetes Care, Vol.31,#8,2007 03/27/2024 3:40 PM EST 03/27/2024 6:33 PM EST us Generic External Data Provider LAB BLOOD ORDERAB LES Final Result [facility] [address] [place] [phone] * US RENAL BI (03/25/2024 1:17 PM EST) Anatomical Region Laterality Modality Abdomen Ultrasound 03/25/2024 1:17 PM EST Narrative 03/25/2024 5:19 PM EST ? [facility] ?[address] ?[place] [address] ? Ultrasound Report ? Signed ? Patient: Bhardwaj Sebastian,Darrel ?MR#: [id number] ?? [id number] ? : 1970 ?Acct:[id number] ? Age/Sex: 53 / M ?ADM Date: 11/13/24 ? Loc: [facility] ?470-1 ? Attending Dr: Renetta Chawla MD ? Ordering Physician: Carito Roche DNP, FNP-BC ?? Date of Service: 03/25/24 ?? Procedure(s): US renal BI ?? Accession Number(s): [id number] ? cc: Carito Roche DNP, FNP-BC; Katrin Santoyo MD ? EXAMINATION: ?? US RETROPERITONEAL LIMITED (RENAL ONLY) ? CLINICAL INFORMATION: ?? Acute kidney injury. ? COMPARISON: ?? Abdominal ultrasound dated 07/10/2023. ? TECHNIQUE: ?? Real-time imaging of the kidneys. ? FINDINGS: ? RIGHT KIDNEY: 14.0 x 5.3 x 6.0 cm (SAG x AP x TRV). The kidney is ?? normal in size, contour, and echogenicity. Renal cortical thickness is ?? normal. No calculi or focal parenchymal lesions. There is pelviectasis, ?? without trevor hydronephrosis. ? LEFT KIDNEY: 13.8 x 6.5 x 5.6 cm (SAG x AP x TRV). The kidney is normal ?? in size, contour, and echogenicity. Renal cortical thickness is normal. ?? No calculi or focal parenchymal lesions. There is pelviectasis, without ?? trevor hydronephrosis. ? US/US renal BI ?? IMPRESSION: ?? Unremarkable examination. ? Electronically signed by: ??Blake Magana MD ??03/25/2024 05:16 PM EST RP ? Dictated By: ?Blake Magana MD ? Signed By: ?<Electronically signed by Blake Magana MD in OV> ? 03/25/24 1716 ? DD/ 1317 ? TD/TT: 03/25/24 1331 ? Travel Specialist: IAN ? Procedure Note Cliff Whyte - 03/25/[address] [address] Ultrasound Report Signed Patient: Darrel HaganMR#: [id number] : 1970Acct:[id number] Age/Sex: 53 / MADM Date: 03/20/24 Loc: [facility] 470-[address]: Renetta Chawla MD Ordering Physician: Carito Roche DNP, SANDBLASTER STONE-BC Date of Service: 03/25/24 Procedure(s): US renal BI Accession Number(s): [id number] cc: Carito Roche DNP, SANDBLASTER STONE-; Katrin Santoyo MD EXAMINATION: US RETROPERITONEAL LIMITED (RENAL ONLY) CLINICAL INFORMATION: Acute kidney injury. COMPARISON: Abdominal ultrasound dated 07/10/2023. TECHNIQUE: Real-time imaging of the kidneys. FINDINGS: RIGHT KIDNEY: 14.0 x 5.3 x 6.0 cm (SAG x AP x TRV). The kidney is normal in size, contour, and echogenicity. Renal cortical thickness is normal. No calculi or focal parenchymal lesions. There is pelviectasis, without trevor hydronephrosis. LEFT KIDNEY: 13.8 x 6.5 x 5.6 cm (SAG x AP x TRV). The kidney is normal in size, contour, and echogenicity. Renal cortical thickness is normal. No calculi or focal parenchymal lesions. There is pelviectasis, without trevor hydronephrosis. US/US renal BI IMPRESSION: Unremarkable examination. Electronically signed by: Blake Magana MD 03/25/2024 05:16 PM EST Dictated By: Blake Magana MD Signed By: <Electronically signed by Blake Magana MD in OV> 03/25/24 1716 DD/ 1317 TD/TT: 03/25/24 1331 Travel Specialist: IAN [facility] External Provider IMG US PROCEDURES Final Result * (ABNORMAL) Glucose, Whole Blood (03/20/2024 3:43 PM EST) Only the most recent of2 resultswithin the time period is included. Glucose, Whole Blood 460(HH) 60 - 115 mg/dL [facility] Comment:METER #: [id number] 03/20/2024 3:43 PM EST 03/20/2024 3:46 PM EST Generic External Data Provider LAB BLOOD ORDERAB LES Final Result [facility] [address] [place] [phone] * (ABNORMAL) VENOUS BLOOD GAS (03/20/2024 1:06 PM EST) VBG pH 7.27(L) 7.32 - 7.43 [facility] Comment:METER #: [id number] additional_comment: Noel jaramillo VBG PCO2 55 mmHg [facility] Comment:METER #: [id number] additional_comment: Cb rodirisa VBG PO2 53 mmHg [facility] Comment:METER #: [id number] additional_comment: Cb rodirisa VBG Base Excess -1.6 mmol/L [facility] Comment:METER #: [id number] additional_comment: Cb rodirisa VBG HCO3 26 22 - 26 mmol/L [facility] Comment:METER #: [id number] additional_comment: Cb ella O2 Sat, Rashad 76.0 % [facility] Comment:METER #: [id number] additional_comment: Cb ella 03/20/2024 1:06 PM EST 03/20/2024 1:10 PM EST us Generic External Data Provider LAB BLOOD ORDERAB LES Final Result Performing Organization Address [facility] Co de Phone Number [facility] [address] [place] [phone] * Partial Thromboplastin Time, Activated (APTT) (03/20/2024 12:58 PM EST) Partial Thromboplastin Time 31.7 26.0 - 36.8 SEC [facility] Comment:For information rega rding the monitoring of direct thrombininhibitors, please refer to Pharmacy. 03/20/2024 12:5 8 PM EST 03/20/2024 1:06 PM EST us Generic External Data Provider LAB BLOOD ORDERAB LES Final Result Performing Organization Address [facility]/ZIP Co de Phone Number [facility] [address] [place] [phone] * Lactic Acid (03/20/2024 12:58 PM EST) [facility] Lactic Acid 1.7 0.5 - 2.0 mmol/L [facility] 03/20/2024 12:5 8 PM EST 03/20/2024 1:06 PM EST Generic External Data Provider LAB BLOOD ORDERAB LES Final Result Performing Organization Address City/[facility]/ZIP Co de Phone Number [facility] [address] [place] [phone] * (ABNORMAL) Hepatic Function Panel (03/20/2024 12:58 PM EST) [facility] Bilirubin, Total 0.3 0.0 - 1.0 mg/dL [facility] Bilirubin, Direct 0.1 0.0 - 0.5 mg/dL [facility] Aspartate Amino Transferase 16 5 - 37 U/L [facility] Alanine Aminotransferase 11 0 - 40 U/L [facility] Total Protein 5.9(L) 6.5 - 8.0 g/dL [facility] Albumin Level 2.4(L) 3.5 - 5.0 g/dL [facility] Alkaline Phosphatase 128(H) 39 - 117 U/L [facility] 03/20/2024 12:5 8 PM EST 03/20/2024 1:15 PM EST [employer] External Data Provider LAB BLOOD ORDERAB LES Final Result Performing Organization Address [facility]/ZIP Co de Phone Number [facility] [address] [place] [address] [phone] * High Sensitivity Troponin I (03/20/2024 11:36 AM EST) [facility] TROPONIN I HIGH SENSITIVITY 12.8 <3.5 - 35.0 ng/L [facility] Comment:The Jimenez high sens itivity Troponin-I results should beused in conjunction with other diagnostic information suchas ECG, clinical observations and information, and patientsymptoms to aid in the diagnosis of [place]. 03/20/2024 11:3 6 AM EST 03/20/2024 11:39 AM EST us Generic External Data Provider LAB BLOOD ORDERAB LES Final Result [facility] [address] [place] [phone] * (ABNORMAL) Complete Blood Count Manual Diff (03/20/2024 11:36 AM EST) White Blood Count 24.9(H) 4.8 - 10.8 X10*3/uL [facility] Red Blood Count 4.63 4.60 - 5.80 X10*6/uL [facility] Hemoglobin 13.1(L) 14.0 - 18.0 g/dl [facility] Hematocrit 41.4(L) 42.0 - 52.0 % [facility] Mean Corpuscular Volume 89.4 80.0 - 98.0 fL [facility] Mean Corpuscular Hemoglobin 28.3 27.0 - 33.0 pg [facility] Mean Corpuscular HGB Conc 31.6 31.0 - 36.0 g/dl [facility] Red Cell Distribution Width 14.6 11.0 - 16.0 % [facility] Platelet Count 290 160 - 400 X10*3/uL [facility] Mean Platelet Volume 12.9(H) 9.4 - 12.4 fL [facility] NRBC Pct Auto 0.0 0.0 - 0.2 /100WBC [facility] NRBC Abs Auto 0.000 0.0 - 0.012 X10*3/uL [facility] Neutrophils % Manual 80(H) 45 - 73 % [facility] Band Neutrophils Percent 5 3 - 5 % [facility] Lymphocytes Percent Manual 6(L) 20 - 40 % [facility] Monocytes Percent Manual 7 2 - 11 % [facility] EOSINOPHILS % MANUAL 1 0 - 4 % [facility] BASOPHILS % MANUAL 1 0 - 2 % [facility] NEUTROPHILS ABSOLUTE MANUAL 21.2(H) 2.0 - 8.3 X10*3/uL [facility] LYMPHOCYTES ABSOLUTE MANUAL 1.5 1.2 - 4.9 X10*3/uL [facility] MONOCYTES ABSOLUTE MANUAL 1.7(H) 0.1 - 1.2 X10*3/uL [facility] EOSINOPHILS ABSOLUTE MANUAL 0.2 0.0 - 0.4 X10*3/uL [facility] BASOPHILS ABSOLUTE MANUAL 0.2 0.0 - 0.2 X10*3/uL [facility] Platelet Estimate NORMAL [facility] Platelet Morphology Comment NORMAL [facility] RBC Morphology NORMAL [facility] 03/20/2024 11:3 6 AM EST 03/20/2024 11:39 AM EST us Generic External Data Provider LAB BLOOD ORDERAB LES Final Result [facility] [address] [place] [phone] * SARS-CoV-2 RNA, Influenza A/B, and RSV RNA, Ql NAAT (03/20/2024 11:36 AM EST) Influenza A PCR NEGATIVE Negative [facility] Influenza B PCR NEGATIVE Negative [facility] Resp Syncy Virus RNA Qual PCR NEGATIVE Negative [facility] SARS COV2 PCR NEGATIVE Negative [facility] Comment:All test results mus t be correlated with clinical findings.Negative results do not preclude SARS-CoV2, influenza Avirus, influenza B virus and/or RSV infectionand should not be used as the sole basis for treatment orother patient management decisions. Negative results must becombined with clinical observations, patient history, andepidemiological information.This test has not been evaluated for monitoring treatment ofinfection.This test has been authorized by the FDA under an EmergencyUse Authorization (EUA) for use by authorized laboratories.Testing performed on the Cepheid GeneXpert utilizingreal-time RT-PCR.All SARS CoV2 and positive influenza A/B results arereported to [facility]. 03/20/2024 11:3 6 AM EST 03/20/2024 11:39 AM EST Generic External Data Provider LAB MICROBIOLOGY - GENERAL ORDERABLES Final Result Performing Organization Address [facility] Co de Phone Number [facility] [address] [place] [phone] * POCT Rapid Influenza B JIMENEZ ID NOW (03/13/2024 6:11 PM EST) [facility] Influenza B Negative Negative, Indeterminate [facility] Swab 03/13/2024 6:11 PM EST Katrina Ward METAL STORAGE WORKER POINT OF CARE TEST ENTER/EDIT O RDERABLES Final Result Performing Organization Address [facility] Co de Phone Number [facility] [address] [place] [phone] * POCT Rapid Influenza A JIMENEZ ID NOW (03/13/2024 6:11 PM EST) [facility] Influenza A Negative Negative, Indeterminate [facility] Swab 03/13/2024 6:11 PM EST Katrina Ward METAL STORAGE WORKER POINT OF CARE TEST ENTER/EDIT O RDERABLES Final Result Performing Organization Address [facility] Co de Phone Number [facility] [address] [place] [phone] * POCT Rapid Covid-19 BinaxNOW (03/13/2024 6:11 PM EST) [facility] Rapid COVID Ag Negative Swab 03/13/2024 6:11 PM EST Katrina Bullardm [employer]AL STORAGE WORKER POINT OF CARE TEST ENTER/EDIT O RDERABLES Final Result * (ABNORMAL) Lipid Panel, Standard (09/19/2023 1:43 PM EDT) Triglycerides 316(H) <150 mg/dL [facility] Comment:Desirable Triglyceri de: less than 150 mg/dLBorderline High Triglyceride 150-199 mg/dLHigh Triglyceride: 200-499 mg/dLVery High Triglyceride: greater than or equal to 5OO mg/dL Cholesterol 164 <200 mg/dL [facility] Comment:Desirable Cholestero l: less than 200 mg/dLBorderline High Cholesterol: 200-239 mg/dLHigh Cholesterol: greater than 239 mg/dL LDL Cholesterol Calculated 60 <100 mg/dL [facility] Comment:Desirable LDL: less than 100 mg/dLNear Optimal/Above Optimal LDL: 110- 129 mg/dLBorderline High LDL: 130-159 mg/dLHigh LDL: 160-189 mg/dLVery High LDL: greater than or equal to 190 mg/dL HDL Cholesterol 41 >40 mg/dL [facility] Comment:Desirable HDL: great er than 40 mg/dL Note: This HDL assay may give artificially low results in patients with liver disease. Blood Venous blood specimen / Unknown 09/19/2023 1:43 PM EDT 09/19/2023 3:53 PM EDT us Katrin López MD LAB BLOOD ORDERAB LES Final Result [facility] [address] [place] [address] [phone] * HIV Ab/Ag ([facility]) (12/06/2022 10:21 AM EDT) HIV AB/AG Nonreactive Nonreactive [facility] Comment:HIV-1 p24 Ag and/or HIV-1/HIV-2 Ab not detected.A test result that is nonreactive does not exclude thepossibility of exposure to or infection with HIV-1 and/orHIV-2. Nonreactive results in this assay for individualswith prior exposure to HIV-1 and/or HIV-2 may be due toantigen and antibody levels that are below the limit ofdetection of this assay.The Jimenez Shaping Machine Operator HIV Ag/Ab Combo assay result andsupplemental assay results should be interpreted inconjunction with the patient's clinical presentation,history and other laboratory results. If the results areinconsistent with clinical evidence, additional testing issuggested to confirm the result. 12/06/2022 10:2 1 AM EDT 12/06/2022 11:17 AM EDT us Elise Castro [facility] LAB BLOOD ORDERABLES Final Result Performing Organization Address [facility]/ZIP Co de Phone Number [facility] [address] [place] [phone] * Hepatitis Panel, General (12/06/2022 10:21 AM EDT) Hepatitis A IgM Nonreactive Nonreactive [facility] Comment:IgM antibodies to V[place] V not detected; does not exclude earlyacute or recovered HAV infection. ~Hepatitis B Surface Antibody REACTIVE Nonreactive [facility] Comment:REACTIVE: > 11.99 mI U/mL Hepatitis B Core Antibody Nonreactive Nonreactive [facility] Hepatitis C Antibody Nonreactive Nonreactive [facility] Comment:Antibodies to HCV no t detected; does not exclude early acuteHCV infection. Hepatitis B Surface Ag Negative Negative [facility] Blood 12/06/2022 10:2 1 AM EDT 12/06/2022 11:17 AM EDT Elise Castro [facility] LAB BLOOD ORDERABLES Final Result Performing Organization Address City/[facility]/ZIP Co de Phone Number [facility] [address] [place] [phone] from Last 3 Months or Most Recently Relevant to Health Maintenance [facility] STAND ADULT Care Teams Manager Pest Relationship Specialty Start Date End Date Katrin Santoyo MD [address] [place] [phone] PCP - General Internal Medicine 12/13/22 Edison Vieira MD [address] [place] [phone] Pulmonary Disease 04/07/24 Joe Devi MD [address] [place] [address] Gastroenterology 04/07/24 Carito Roche DNP [address], [address] [place] [address] Nephrology 04/07/24 [employer] 04/11/24
--- OUTSIDE RECORDS SUMMARY | 2024-06-03 17:51 | XMS_ITS | Encounter Summary ---
Author Organization [facility] Address [address] [place] [address] Care Team Providers Care Preschool Assistant Principal Name Role Phone Deep Pruitt JOHN Primary Care Provider Encounter Details Date Type Department Care Team (Late st Contact Info) Description 02/20/2017 Scanned Document [facility] [address] [place] [address] Francisco Veloz PA [address] [place] [phone] Social History Tobacco Use Types Packs/Day [...] documented as of this encounter Care Teams Preschool Assistant Principal Relationship Specialty Start Date End Date Deep Pruitt APRN PCP - General 05/22/19 documented as of this encounter
--- OUTSIDE RECORDS SUMMARY | 2024-06-03 17:51 | XMS_ITS | Encounter Summary ---
Author Organization [facility] Address [address] [place] [address] Care Team Providers Care Nanny/Household Manager Name Role Phone SandersonDeep medina Niko LOPEZ Primary Care Provider Encounter Details Date Type Department Care Team (Late st Contact Info) Description 02/19/2020 Scanned Document [facility] [address], [place] [phone] Arben Fountain, NOLVIA [address] [place] [phone] Social History Tobacco Use Types Packs/Day Years [...] PHQ-2 Answer Date Recorded PHQ-2 Score 2 10/02/2019 [facility] [place] of Occupat ional Health - Occupational Stress [...] have Coronavirus / COVID-19? No / Unsure 02/21/2020 2:41 PM EDT documented as of this encounter Plan of Treatment Not on file documented as of this encounter Procedures Procedure Name Priority Date/Time Associated Diagnosis Comments PATHOLOGY REPORT (L) Routine 02/19/2020 documented in this encounter Results * Pathology report (L) (02/19/2020) Blood us Arben Fountain DPM PATHOLOGY/CYTOLOGY ORD ERABLES Final Result documented in this encounter Visit Diagnoses Not on filedocumented in this encounter Additional Health Concerns Infection Onset Date Last Indicated Resolved Time R/O Respiratory Virus 05/05/2021 05/05/20212020 7:18 PM EST R/O COVID-19 05/05/2021 05/05/2021 05/06/2021 1:22 PM EST R/O Respiratory Virus 05/05/2021 05/05/20212021 1:45 PM EST COVID-19 09/29/2021 09/29/2021 10/19/2021 7:19 PM EDT Assessment Noted Time PHQ-9 Depression Total Score: 2 10/02/19 20 3:18 PM EDT documented as of this encounter Care Teams Nanny/Household Manager Relationship Specialty Start Date End Date Deep Pruitt APRN PCP - General 05/22/19 documented as of this encounter
--- OUTSIDE RECORDS SUMMARY | 2024-06-03 17:51 | XMS_ITS | Encounter Summary ---
Author Organization [facility] Address [address] [place] [address] Care Team Providers Care Biofuels Manager Name Role Phone Deep Pruitt JOHN Primary Care Provider Encounter Details Date Type Department Care Team (Late st Contact Info) Description 11/22/2017 Scanned Document [facility] [address] [place], [place] [phone] Francisco Veloz PA [address] [place] [phone] Social History Tobacco Use Types Packs/Day [...] Procedure Name Priority Date/Time Associated Diagnosis Comments CARDIAC EKG RESULT SCAN Routine 11/22/2017 documented in this encounter Results * Cardiac EKG Result Scan (11/22/2017) us Provider External CV CARDIAC REPORT (CVR) Final Result documented in this encounter Visit [...] documented as of this encounter Care Teams Biofuels Manager Relationship Specialty Start Date End Date Deep Pruitt APRN PCP - General 05/22/19 documented as of this encounter
--- OUTSIDE RECORDS SUMMARY | 2024-06-03 17:51 | XMS_ITS | Clinical Summary ---
Author Organization [facility] Address [address] [facility] [address] [place] [address] Phone Care Team Providers Care Air Sampling And Monitoring Name Role Phone Katrin Brumfield Primary Care Provid er Allergies Active Allergy Reactions Criticality Noted Date Comments Amlodipine Swelling 03/28/2021 Pt develops lower leg swelling Penicillin G 01/06/2023 Penicillins Itching Medium 12/10/2018 Medications aspirin (ST RYANNE) 81 MG EC tablet Take 81 mg by mouth 1 (one) time each day Active atorvastatin (LIPITOR) 80 MG tablet Take 80 mg by mouth 1 (one) time each day Active carvedilol (COREG) 25 MG tablet Take 25 mg by mouth in the morning and 25 mg in the evening. Take with meals. Active clonazePAM (KlonoPIN) 0.5 MG tablet Take 0.5 mg by mouth in the morning and 0.5 mg in the evening. Active Empagliflozin 25 MG tablet Take 25 mg by mouth 1 (one) time each day in the morning Active fluticasone (FLONASE) 50 MCG/ACT nasal spray Administer 1 spray into each nostril 1 (one) time each day Active furosemide (LASIX) 80 MG tablet Take 80 mg by mouth in the morning and 80 mg in the evening. Active gabapentin (NEURONTIN) 800 MG tablet Take 800 mg by mouth in the morning and 800 mg in the evening and 800 mg before bedtime. Active insulin regular (HumuLIN R U-500 KWIKPEN) 500 UNIT/ML CONCENTRATED injection Inject under the skin Active INSULIN ASPART PROT & ASPART SC Inject under the skin 2 (two) times a day before meals Active pantoprazole (PROTONIX) 40 MG EC tablet Take 40 mg by mouth 1 (one) time each day before breakfast Do not crush, chew, or split. Active tiotropium (SPIRIVA) 18 MCG per inhalation capsule Place 1 capsule into inhaler and inhale 1 (one) time each day Active traZODone (DESYREL) 150 MG tablet Take 150 mg by mouth every night Active Dulaglutide (Trulicity) 4.5 MG/0.5ML solution pen-injector Inject under the skin Active albuterol HFA (Proventil HFA) 108 (90 Base) MCG/ACT inhaler Inhale 2 puffs every 6 (six) hours if needed for wheezing Active ziprasidone (GEODON) 40 MG capsule Take 40 mg by mouth in the morning and 40 mg in the evening. Take with meals. Active ziprasidone (GEODON) 80 MG capsule Take 80 mg by mouth in the morning and 80 mg in the evening. Take with meals. Active divalproex (DEPAKOTE) 500 MG 24 hr tablet 3 Active DULoxetine (CYMBALTA) [address] capsule TAKE 1 CAPSULE BY MOUTH DAILY IN THE EVENING 3 Active ezetimibe (ZETIA) 10 MG tablet Take 10 mg by mouth in the morning. 3 Active Proctozone-HC 2.5 % cream INSERT RECTALLY TWICE DAILY 3 Active lidocaine (LIDODERM) 5 % patch Apply 1 patch topically in the morning. 3 Active lidocaine-priloca ine (EMLA) cream APPLY TO THE AFFECTED AREA(S) EVERY DAY NEEDED FOR MILD PAIN FOR UP TO 10 DAYS (FOR PAIN IN FOOT) 3 Active allopurinol (ZYLOPRIM) 100 MG tablet Take 2 tablets (200 mg total) by mouth 1 (one) time each day 180 tablet 3 3 Active olmesartan (Benicar) 40 MG tablet Take 1 tablet (40 mg total) by mouth 1 (one) time each day 90 tablet 3 4 12/04/19 25 Active ergocalciferol 1.25 MG (88852 UT) capsule Take 1 capsule (50,000 Units total) by mouth every Monday and 70 capsule 1 4 Active Active Problems Problem Noted Date Diagnosed Date Hypertensive chronic kidney disease 01/27/2023 Secondary hyperparathyroidism of renal origin Type 2 diabetes mellitus wit h diabetic chronic kidney disease 01/27/2023 Gout 01/06/2023 Other and unspecified hyperlipidemia 01/06/2023 Essential (primary) hypertension 01/06/2023 Vitamin D deficiency 01/06/2023 Renal pain 02/17/2022 01/25/2023 Overview (01/25/2023): Last Assessment & Plan: 06/01/2022 US RENAL. HISTORY: r/o kidney stone. [...] IMPRESSION: No sonographic evidence for renal calculi. Stage 3b chronic kidney disease 01/30/2020 01/25/2023 Overview (01/25/2023): Last Assessment & Plan: 12/16/2021 Nephrology Referral: Darrel Bhardwaj is a 51 y/o with CKD3a 2/2 DM and HTN. Please see below for itemized recommendations. Recommendations: 1. CKD 3a - stable however overall appears to be slowly progressing likely iso poorly controlled DM - volume overloaded; will increase lasix to 80mg bid - continue current mgt - Avoid NSAIDs, tart cruz juice - 3+ protein on UA from 09/26 - send UPCR 2. Electrolytes - Na, K and HCO3- WNL 3. Bone mineral disease - PTH in 07/27 was 137, Ca 10.1, PO4 3.5 - no indication for phos binders 4. DM - A1C 11.5 - poorly controlled - currently on multiple meds; zetia, jardiance, trulicity, metformin, insulin - counseled regarding diet 5. HTN - well controlled Leg pain unlikely to be related to LE swelling and no evidence of unilateral swelling. Advised to discuss leg pain with primary care provider. 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 01/06/2023 01/25/2023 Constipation 01/06/2023 01/25/2023 Type 1 diabetes mellitus wit h diabetic nephropathy 01/06/2023 01/25/2023 Edema 01/06/2023 01/25/2023 Gastroesophageal reflux disease 01/06/2023 01/25/2023 Steatosis of liver 01/06/2023 History of heat stroke 01/06/202301/25 Microalbuminuric diabetic nephropathy 01/06/2023 01/25/2023 Obesity 01/06/2023 01/25/2023 Obstructive sleep apnea syndrome 01/06/2023 01/25/2023 Tubular adenoma 01/06/2023 01/25/2023 Pain of left calf 06/10/2022 01/25/2023 01/25/2023 Overview (01/25/2023): Last Assessment & Plan: 05/16/2022 US DUPLEX LOWER EXTREMITY VENOUS LEFT Clinical: -The Pt c/o left calf pain that started a week ago COMPARISON: February 15, 2022 venous ultrasound of left leg Grayscale imaging and color Doppler evaluation of the leg was performed from the common femoral vein to the distal calf, including evaluation of common femoral, femoral, proximal deep femoral, proximal greater saphenous vein, and popliteal vein. There is normal compressibility of veins with no evidence of filling defect. Calf veins are not well visualized in this patient. On spectral Doppler evaluation, there is normal respiratory variation of flow at the external iliac veins and normal augmentation of flow at the popliteal vein. Color doppler evaluation of the deep veins of the calf demonstrate normal augmentation of flow. No popliteal cyst is seen. IMPRESSION: No evidence of deep venous thrombosis. Pain in left leg 05/20/2022 01/25/2023 01/25/2023 Overview (01/25/2023): L calf pain, states it started 1 week ago and was red. Tender to palpation, Homans test negative. Could be MSK but small welt palpable. - US to rule out DVT Last Assessment & Plan: -The Pt c/o left calf pain that started a week ago -Pt is currently on a blood thinned due to his history of a previous PE -Currently the left calf area is not swollen, no signs of erythremia and having a negative Homans test -Pt is currently taking aspirin 81 mg chewable tablet PO QD -DDx MSK strain of left calf or a DVT. -Will order an US to rule out DVT -Will keep an eye on the results and f/u with Pt in a month Ingrowing great toenail 04/21/2022 01/25/202301/07 Overview (01/25/2023): Last Assessment & Plan: -For the past 3 week the Pt has been c/o right great ingrown toe nail -The had cut his great toe nails very short and had some bleeding as a result -The Pt was told he could develop a toe infection due to his A1C being so elevated at 10.2 and not using appropriate tools for his foot care -The Pt was encouraged leave all his foot care to the carried out by Podiatry -The Pt has a f/u Podiatry appointment on 04/28/2022 at 11:00 AM with Arben Fountain DPM at the [facility] -Will f/u with Pt in a month to check on effectiveness of medications Vaccination needed 03/26/2022 01/25/2023 COVID-19 09/29/2021 01/25/2023 01/25/2023 Overview (01/25/2023): Last Assessment & Plan: September 27, 2021 The Pt had a positive home test and continues to be symptomatic with SOB with exertion and intermittent diarrhea, Pt will continue to monitor his symptoms and was informed if at a time the Pt is SOB at rest then the Pt needs to go to the ED [facility] will continue to monitor Acquired hypothyroidism 09/12/2021 01/25/202301/07 Overview (01/25/2023): Last Assessment & Plan: Will continue to monitor the Pt's TSH levels Results for DARREL BHARDWAJ ( ) as of 09/12/2021 12:10 Ref. Range 09/09/2021 Thyroid Stimulating Hormone, 3rd Gen. Latest Ref Range: See Comment ??IU/mL 3.640 Lymphadenopathy 04/09/2021 01/25/2023 01/25/2023 Overview (01/25/2023): Last Assessment & Plan: Recent CT of Chest showed in the [...] followed up in 3-6 months. Fatty liver. Hormone increase 01/08/2021 01/25/2023 01/25/2023 Overview (01/25/2023): Last Assessment & Plan: Results for DARREL BHARDWAJ ( ) as of 01/08/2021 13:09 Ref. Range 02/06/2020 03/12/2020 01/07/2021 Parathyroid Hormone, Intact Latest Ref Range: 14 - 64 pg/mL 64.2 74 (H) 74 (H) Results for DARREL BHARDWAJ ( ) as of 01/08/2021 13:09 Ref. Range 09/16/2019 02/07/2020 01/07/2021 Calcium Latest Ref Range: 8.6 - 10.3 mg/dL 10.6 (H) 10.2 10.0 Ventral hernia 05/28/2020 01/25/2023 01/25/2023 Overview (01/25/2023): Last Assessment & Plan: For the last few days the Pt has a tennis ball size protrusion to comes out below his left rib cage when he tries to have a bowel movement, the pt has to push this area in to be able to have a comfortable bowel movement, will continue to to monitor Disorder of eosinophil 04/03/2020 01/25/202301/25 Overview (01/25/2023): Last Assessment & Plan: Need to assess if Pt continue to experience Hypersegmentation of eosinophils, this maybe Asthma related and will order a referral for Pulmonology for further assessment and if it is not asthma related then will send the Pt to Hematology Results for DARREL BHARDWAJ ( ) as of 11/18/2020 15:14 Ref. Range 03/12/2020 Neutrophils Absolute Latest Ref Range: 1,500 - 7,800 cells/uL 9,116 (H) 04/14/2020 Juan Chino MD to Deep Pruitt APRN; eConsult Response Specialist eConsult Response 1. Restatement of the question:Elevated eosinophil count 2. Recommendation: Monitoring of CBC and eosinophil count, and consideration of referral to hematology should eosinophil count consistently increase 3. Rationale and/or evidence for response (include component(s) of medical record reviewed and relied on) Patient has had an absolute eosinophil count in the 600- 700 range since at least Dec or Jan of this year. The prior levels do not paulina it as elevated because the normal range for those tests include 0 - 1,000 (whereas the level in Nov had a range of 0-500 as normal). Either way, the patient's underlying medical conditions (CKD and diabetes) may lead to inflammation and elevated WBC and eosinophil count.?? 4. Contingency plan:??May continue to monitor blood counts and refer to hematology if significant increase in CBC parameters or other clinical concerns. Neuropathy due to type 2 diabetes mellitus 02/14/2020 01/25/2023 01/25/2023 Overview (01/25/2023): Last Assessment & Plan: -Pt continues to deal with bilateral Neuropathy of feet that Pt feels has gotten worse, particularly in the toes -Pt is currently taking gabapentin 800 mg BID & Cymbalta 60 mg BID -As Pt loses weight, decreases his insulin usage, use better food proportions her feet should decrease Abnormal gait 01/30/2020 01/25/2023 Overview (01/25/2023): CVA 2017 Last Assessment & Plan: -Pt had a CVA from 2017 -Presumed etiology of prior stroke (see MRI of Brain from 2017 under [facility] Multimedia -Significant deficits on neurologic exam Memory loss and Left handed weakness -Imaging and prior evaluation -Current blood thinning agents is aspirin -Potential details to include, when relevant: poor GAIT, uses a walker to get around -How the diagnosis was made: Pt lived in [facility] at the time, Under Multimedia in [facility] see specific file at specific date [id number].TIF Image MRI Result [facility] - MRI BRAIN CVA -09/25/2016 [id number].TIF Image Evaluation [facility]- Left handed weakness note - 02/20/2017 ?? CT head or MRI brain 05/15/2020 MRI BRAIN W 3D VOLUMETRIC ANALYSIS WO IV CONTRAST (Y[facility]) CLINICAL INDICATION: Memory Loss also h/o self reported strokes. -TECHNIQUE: Multiplanar and multisequence MRI of the brain without the administration of intravenous contrast. 3-D volumetric analysis was performed on the sagittal T1 MPRAGE images, using NeuroQuant software on an independent workstation. ??-COMPARISON: No priors available for comparison. ??-FINDINGS: ??There is no acute ischemic infarct, acute intracranial hemorrhage, or mass effect. ??There is a FLAIR hyperintense focus in the right centrum semiovale. A few other nonspecific FLAIR hyperintense foci are visualized in the periventricular, pontine and juxtacortical white matter. These foci may be related to chronic small vessel ischemic disease, chronic migraines, amongst others. ??The basilar cisterns are patent. The posterior fossa structures are within normal limits. ??The midline structures including the corpus callosum, pituitary gland, and craniocervical junction are within normal limits. ??The paranasal sinuses and mastoid air cells are well aerated. ??The orbits are within normal limits. ??No calvarial abnormality is identified. ??Volumetric analysis results: ??Right hippocampal volume: 4 3 mL. Left hippocampal volume: 3.9 mL. Asymmetry index: 9.5 %. Total hippocampal volume: 8.2 mL which has a 0.56% of total intracranial volume, and measures at the 98 percentile for age-matched controls. Superior lateral ventricle volume: 25 mL which as a 1.7% of total intracranial volume, and measures at the 64 percentile for age-matched controls. Inferior lateral ventricle volume: 1.3 mL which as a 0.08% of total intracranial volume, and measures at the 64 percentile for age-matched controls. -IMPRESSION: No pattern of cerebral atrophy to suggest a specific diagnosis. Low back pain co-occurrent a nd due to bilateral sciatica 09/26/2019 01/25/2023 01/25/2023 Overview (01/25/2023): Last Assessment & Plan: - 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 - lidocaine patches ordered today to help with pain control, trying to avoid Tramadol for now due to constipation Bilateral arthritis of hip 02/07/2019 01/25/2023 0 01/25/2023 Overview (01/25/2023): Last Assessment & Plan: The Pt has been dealing with bilateral Hip arthritis for the past year, in the past had ordered nutrition classes and recommended weight loss with Bariatric Surgery, the Pt continues to deal with a BMI of 43-44 since 2019, the Pt needs to call the [facility] [address] [place], [place] [id number] Diabetic foot 02/07/2019 01/25/2023 01/25/2023 Overview (01/25/2023): Last Assessment & Plan: The Pt continues to deal with bilateral foot pain and wears a pair of Diabetic shoes with specification ordered by his Booster [employer] Oiler Doctor Patient encounter status 02/07/2019 01/25/2023 Overview (01/25/2023): Last Assessment & Plan: The Pt stated today that he saw his Eye Doctor, unable to see event in Epic Chronic post-traumatic stress disorder 01/28/201901/25/2023 Schizoaffective disorder, depressive type 01/14/2019 01/25/2023 01/25/2023 Finding related to ability t o perform personal care activity 01/01/2019 01/25/2023 01/25/2023 Overview (01/25/2023): Last Assessment & Plan: Pt is still in the process of establishing a Visiting Nurse for home care to help manage his multiple medications Type 2 diabetes mellitus 12/10/2018 01/25/2023 Overview (01/25/2023): Pt is taking the following Diabetic medication: -If the FBS (Fasting Blood Sugar) is predominantly above 140 increase then Lantus dose will be increased by 5 units at each NV or PCP appointment -HUMULIN R REGULAR U-100 INSULN 100 unit/mL SQ before each meal 150-200=2u, 201-50=4u, 251-300=6u, 301-50=8u, 351-400=10u, 401-500=12u -Take finger sticks 4 times a day (before each meal and before bed time) Finger stick before each meal will determine how much HUMULIN R to take (see sliding scale above) Lantus orders: Goals #1 FBS 100-140, Goal #2 A1C below 8 -Pt will be called biweekly by the [facility] Nurse to review his FBS finger sticks and adjust Lantus dose as appropriate -Pt was asked to take his finger stick before each meal and before going to bed -Schedule A1C labs for every 3 months to assess progress of Goal #1 and #2 -Spent 10 mins talking with Pt about a diabetic diet, Pt is recommended to consume fruit, veg, protein, whole grain food instead of processed foods or soft drinks, increase their Physical exercise to 30 mins a day where Pt has a light sweat with the ultimate goal of losing weight and lowering their blood sugars and dropping their A1C to below 8 ? ? dulaglutide (TRULICITY) 4.5 mg/0.5 mL PnIj Inject 0.5 mLs (4.5 mg total) under the skin every 7 days. 2 mL 11 ? ? empagliflozin (JARDIANCE) 25 mg tablet Take 1 tablet (25 mg total) by mouth daily. 30 tablet 11 ? ? insulin aspart (NOVOLOG) 100 unit/mL (3 mL) pen Inject 35 units before meals plus sliding scale. Max daily dose 141 units/day 45 mL 5 ? ? metFORMIN (GLUCOPHAGE) 1000 mg tablet Take 1 tablet (1,000 mg total) by mouth 2 (two) times daily with breakfast and dinner. 60 tablet 11 insulin regular human CONCENTRATED 500 units/mL (HUMULIN R U-500, CONC, KWIKPEN) injection pen Inject 170 Units under the skin 2 (two) times daily before breakfast and dinner. Last Assessment & Plan: -Mr. Bhardwaj is here for follow-up of his DMT2 care and adjustments of his medications -He has been following with the [place] [facility] team and reports taking all of his medication/insulin but the trouble has been maintaining a sustainable diet. -The Pt stated that he did received his Glucerna (diabetic food supplement) and will take it as a supplement between meals to bring his Calorie count down -The continues to deal with an elevated A1C, The Pt was prescribed the sensor and scanner -Pt has decided to move [place] back to [place] area due to being closer to family and old friends -Pt asked for a 3 month supply of medications so he can be carried over till he meets his new PCP Latest Reference Range & Units 03/12/20 08/27/20 01/07/21 08/13/21 12/22/21 06/23/22 Hemoglobin A1c 4.0 - 5.6 % 10.4 (H) 11.6 (H) 11.3 (H) Hemoglobin A1C, POC 4.0 - 6.0 % 10.4 10.7 10.6 Encounters Date Type Department Care Team Description 04/08/2024 Orders Only [facility] [address] [place] [address] Efren Quispe MD Stage 3b chronic kidney disease (HCC); Type 2 diabetes mellitus with diabetic chronic kidney disease (HCC); Hypertensive chronic kidney disease; Secondary hyperparathyroidism of renal origin (HCC) from Last 3 Months Immunizations Name Administration Dates Next Due Influenza, Quadrivalent, Preservative Free 03/24,01/21/2021,02/05/2020 Moderna SARS-COV-2 08/28/2020,07/28/2020 Pfizer SARS-COV-2 04/14/2021 Pneumococcal Conjugate 03/24/2022 Pneumococcal Polysaccharide 01/21/2021 Tdap 03/24/2022 Family History Medical History Relation Comments Asthma Father Cancer Father Diabetes Father Cancer Mother Diabetes Mother Relation Status Comments Father Mother Social History Tobacco Use Types Packs/Day Years Used Date Smoking Tobacco: Never Smokeless Tobacco: Never Tobacco Cessation:Counseling Given: No Sex and Gender Information Value Date Recorded Sex Assigned at Not on file Legal Sex Male 3:01 PM EDT Gender Identity Not on file Sexual Orientation Not on file Last Filed Vital Signs Vital Sign Reading Time Taken Comments Blood Pressure 140/70 12/04/2023 4:17 PM EDT Pulse 97 12/04/2023 4:17 PM EDT Temperature - - Respiratory Rate - - Oxygen Saturation 97% 12/04/2023 4:17 PM EDT Inhaled Oxygen Concentration - - Weight 112 kg (246 lb) 12/04/2023 4:17 PM EDT Height - - Body Mass Index - - Plan of Treatment Upcoming Encounters Date Type Department Care Team (Late st Contact Info) Description 07/01/2024 1:15 PM EST Office Visit [facility] [address] [phone] Isha Ruth ARNP [address] [phone] Health Maintenance Due Date Last Done Comments Hepatitis B Vaccine (1 of 3 - 19+ 3-dose series) 1989 04/05/2017, 10/05/2016, 08/17/2016 Colorectal Cancer Screening: Annual FOBT 2019 Colorectal Cancer Screening: Sigmoidoscopy 2019 Diabetes: Ophthalmology Exam 11/07/2022 07/01/2019 Diabetes: Pedal Pulse Checked 11/07/2022 Diabetes: Sensory Foot Exam 11/07/2022 Diabetes: Visual Foot Exam 11/07/2022 Pneumococcal Vaccine: Pediat rics (0 to 5 Years) and At-Risk Patients (6 to 64 Years) (2 of 2 - PCV) 03/24/2023 03/24/2022, 01/21/2021 Diabetes: Hemoglobin A1C 12/20/2023 024, 09/08/2023, 05/17/2023, Additional history exists Influenza Vaccine (#1) 2024 3, 03/24/2022, 01/21/2021, Additional history exists Colorectal Cancer Screening: Colonoscopy 01/25/2033 01/25/2023 [place] Care Teams Air Sampling And Monitoring Relationship Specialty Start Date End Date Katrin Brumfield [address] [place] [id number] PCP - General 04/17/23
--- OUTSIDE RECORDS SUMMARY | 2024-06-03 17:51 | XMS_ITS | Encounter Summary ---
Author Organization [employer] Address [address] [place] [address] Care Team Providers Care Die Repairer Stamping Name Role Phone Katrin Santoyo MD Primary Care Pro vider Edison Vieira MD Unavailable [phone] Joe Devi MD Unavailable [phone] Reason for Visit * Reason Comments Med Refill Encounter Details Date Type Department Care Team (Late st Contact Info) Description 01/02/2023 Refill [facility] [address] [place] [address] Elise Stanford FNP [address] [place] [address] Dept [place] [address] Hemorrhoids, unspecified hemorrhoid type Social History Tobacco Use Types Packs/Day Years [...] Miscellaneous Notes * Telephone Encounter - Katrin López MD - 01/03/2023 5:26 PM EDT From previous PCP note pt was not using med-will clarify before sensing med documented in this encounter Plan of Treatment Upcoming Encounters Date Type Department Care Team (Late st Contact Info) Description 06/04/2024 11:00 AM EST Office Visit [facility] [address] [place] [address] documented as of this encounter Goals Goal Patient Goal Type Associated Problems Recent Progress Patient-Stated? Author Blood Pressure < 140/90 Blood Pressure 158/90(2023 10:23 AM EST) No Piers-Gambl e, Eve, PharmD Hemoglobin A1c < 7 Result Component 12.5(03/27/20 3:40 PM EST) No Piers-Gambl e, Eve, PharmD documented as of this encounter Visit Diagnoses Diagnosis Hemorrhoids, unspecified hemorrhoid type documented in this encounter Additional Health Concerns Assessment Noted Time PHQ-9 Depression Total Score: 24 023 2:05 PM EDT documented as of this encounter Care Teams Die Repairer Stamping Relationship Specialty Start Date End Date Katrin Santoyo MD [address] [place] [address] PCP - General Internal Medicine 12/13/22 Edison Vieira MD [address] [place] [address] Pulmonary Disease 04/07/24 Joe Devi MD [address] [facility] 3rd [place] [address] Gastroenterology 04/07/24 Carito Roche DNP [address] [facility], [address] [place] [address] Nephrology 04/07/24 [employer] 04/11/24 documented as of this encounter
--- OUTSIDE RECORDS SUMMARY | 2024-06-03 17:51 | XMS_ITS | Encounter Summary ---
Author Organization [facility] Address [address] [place] [address] Care Team Providers Care Heel Blacker Name Role Phone Deep Pruitt APRN Primary Care Provider [phone] Reason for Visit * Reason Comments Other Encounter Details Date Type Department Care Team ([facility] Contact Info) Description 01/13/2021 Telephone [facility] [address] [place] [address] Deep Pruitt APRN [address] [place] [address] Other Social History Tobacco Use [...] Answer Date Recorded PHQ-2 Total Score 6 01/12/2021 [facility] Occupat ional Health - Occupational [...] encounter Miscellaneous Notes * Telephone Encounter - Perla Rice RN - 01/14/2021 1:24 PM EDT Calls were placed to patient x2 to assess his pain. Voicemail was left, If we are not able to reacheach other and he would like to be evaluated soon he can always come to CC department. Electronically Signed by Perla Rice RN, January 14, 2021 * Telephone Encounter - Marleni Suarez - 01/13/2021 2:02 PM EDT Patient calling stating he is experiencing some pain in his foot and back. Patient is inquiring if provider would be able to send in a prescription to help with this pain. Patient also states he was prescribed a medication from provider, believes it was a vitamin, he took it on Monday and the next day he noticed some spots on his foot. Patient would like to discuss if this is a side effect fromthat medication. Patient utilizes [facility] [address] [place] [address] Patient contact [phone] documented in this encounter Plan of Treatment [...] Assessment Noted Time PHQ-9 Depression Total Score: 19 021 3:02 PM EDT documented as of this encounter Care Teams Heel Blacker Relationship Specialty Start Date End Date Deep Pruitt APRN PCP - General 05/22/19 documented as of this encounter
--- OUTSIDE RECORDS SUMMARY | 2024-06-03 17:51 | XMS_ITS | Encounter Summary ---
Author Organization [facility] Address [address] [place] [address] Care Team Providers Care Nurse Outreach Case Manager Name Role Phone Deep Pruitt JOHN Primary Care Provider [phone] Encounter Details Date Type Department Care Team (Late st Contact Info) Description 09/26/2016 Scanned Document [facility] [address] [place], [place] [phone] External, Provider Social History Tobacco Use Types [...] Name Priority Date/Time Associated Diagnosis Comments CARDIAC ECHO RESULT SCAN Routine 09/26/2016 documented in this encounter Results * Cardiac Echo Result Scan (09/26/2016) us Provider External CV CARDIAC REPORT (CVR) Final Result documented in this encounter Visit Diagnoses Not on filedocumented in this encounter Additional Health Concerns Infection Onset Date Last Indicated Resolved Time R/O COVID-19 02/04/2020 02/04/2020 02/05/2020 1:29 AM EDT R/O Respiratory Virus 05/05/2021 05/05/202105/06/ 2021 7:18 PM EST R/O COVID-19 05/05/2021 05/05/2021 05/06/2021 1:22 PM EST R/O Respiratory Virus 05/05/2021 05/05/20212021 1:45 PM EST COVID-19 09/29/2021 09/29/2021 10/19/2021 7:19 PM EDT documented as of this encounter Care Teams Nurse Outreach Case Manager Relationship Specialty Start Date End Date Deep Pruitt APRN PCP - General 05/22/19 documented as of this encounter
--- OUTSIDE RECORDS SUMMARY | 2024-06-03 17:51 | XMS_ITS | Encounter Summary ---
Author Organization [employer] Address [address] [facility] 7t [place] [address] Care Team Providers Care Lens Polisher Name Role Phone Elise Stanford EXPERIMENTAL MECHANIC OUTBOARD MOTORS Primary Care Provider [phone]- [phone] Katrin Santoyo MD Primary Care Pro vider Edison Vieira MD Unavailable [phone] Joe Devi MD Unavailable [phone] Encounter Details Date Type Department Care Team (Late st Contact Info) Description 12/06/2022 Telephone [facility] [address] [place] [address] Susan Manzano LPN Social History Tobacco Use [...] encounter Miscellaneous Notes * Telephone Encounter - Alana Gongora RN - 12/06/2022 2:20 PM EDT Noted. Pt to f/u PRN * Telephone Encounter - Susan Manzano LPN - 12/06/2022 1:51 PM EDT Triage call returned to patient in regards to reported critical blood glucose of 411 today. Call placed via [employer] public employment mediator [phone] patient updated that BG this morning elevated. Reports no symptoms at present. Reports he is compliant with meds as ordered. Aware of upcoming appt. date and time reviewed. Reviewed with patient home care recommendations and reasons to call back. Pt verbalized understanding and agrees. Reviewed diet and carbohydrate intake, increase water intake. Patient verbalized understanding. Team tasked as FYI only. Protocol Used: Diabetes - High Blood Sugar (Adult) Protocol-Based Disposition: Home Care Positive Triage Question: * Blood glucose > 300 mg/dL (16.7 mmol/L) * All higher-acuity triage questions were negative Care Advice Discussed: * Continue Insulin * Continue Diabetes Pills * Measure and Record Your Blood Glucose * Reasons To Call Back - You have more questions - You become worse documented in this encounter Plan of Treatment Upcoming Encounters Date Type Department Care Team (Late st Contact Info) Description 06/04/2024 11:00 AM EST Office Visit [facility] [address] [place] [address] documented as of this encounter Visit Diagnoses Not on filedocumented in this encounter Additional Health Concerns Assessment Noted Time PHQ-9 Depression Total Score: 24 023 2:05 PM EDT documented as of this encounter Care Teams Lens Polisher Relationship Specialty Start Date End Date Elise Stanford FNP PCP - General Family Medicine 11/24/22 12/12/22 Katrin Santoyo MD [address] [place] [address] PCP - General Internal Medicine 12/13/22 Edison Vieira MD [address] [place] [address] Pulmonary Disease 04/07/24 Joe Devi MD [address] [place] [address] Gastroenterology 04/07/24 Carito Roche DNP [address], [address] [place] [address] Nephrology 04/07/24 [facility] 04/11/24 documented as of this encounter
--- OUTSIDE RECORDS SUMMARY | 2024-06-03 17:51 | XMS_ITS | Encounter Summary ---
Author Organization [facility] Address [address] [place] [address] Care Team Providers Care Natural Gas Technician Name Role Phone Deep Pruitt JOHN Primary Care Provider [phone] Encounter Details Date Type Department Care Team (Late st Contact Info) Description 01/17/2019 Scanned Document [facility] [address] [place], [place] [phone] External, Provider Social History Tobacco Use Types Packs/Day Years Used Date Smoking Tobacco: Never Smokeless Tobacco: Never Alcohol Use Standard Drinks/Week Comments Never 0 (1 standard drink = 0.6 oz pur e alcohol) AUDIT-C Answer Date Recorded Frequency of Alcohol Consumption Never 12/10/2018 Average Number of Drinks Not on file 019 Frequency of Binge Drinking Not on file 09/2018 Sex and Gender Information Value Date Recorded [...] documented as of this encounter Care Teams Natural Gas Technician Relationship Specialty Start Date End Date Deep Pruitt APRN PCP - General 05/22/19 documented as of this encounter
--- OUTSIDE RECORDS SUMMARY | 2024-06-03 17:51 | XMS_ITS | Encounter Summary ---
Author Organization [facility] [facility] Address [address] [place] [address] Care Team Providers Care Manager Pathology Name Role Phone Deep Pruitt APRN Primary Care Provider Reason for Visit * Reason Comments Medication Refill Encounter Details Date Type Department Care Team ([facility] st Contact Info) Description 01/29/2021 Refill [facility] [address] [place], [place] [phone] Deep Pruitt APRN [address] [place] [address] Medication Refill Social History Tobacco [...] any clubs o r organizations such as judaism groups, unions, fraternal or athletic groups, or [...] Date Recorded PHQ-2 Total Score 6 01/21/2021 [facility] Occupat ional [facility] - [...] Diagnoses Diagnosis Essential hypertension Unspecified essential hypertension Type 2 diabetes mellitus with diabetic polyneuropathy, with long-term current use of insulin (HC Code) 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 [...] documented as of this encounter Care Teams Manager Pathology Relationship Specialty Start Date End Date Deep Pruitt APRN PCP - General 05/22/19 documented as of this encounter
--- OUTSIDE RECORDS SUMMARY | 2024-06-03 17:51 | XMS_ITS | Encounter Summary ---
Author Organization [facility] Address [address] [place] [address] Care Team Providers Care Instrument Repair Supervisor Name Role Phone Deep Pruitt JOHN Primary Care Provider Encounter Details Date Type Department Care Team (Late st Contact Info) Description 01/01/2018 Scanned Document [facility] [address] [place], [place] [phone] Francisco Veloz PA [address] [place] [phone] Social History Tobacco Use Types Packs/Day [...] documented as of this encounter Care Teams Instrument Repair Supervisor Relationship Specialty Start Date End Date Deep Pruitt APRN PCP - General 05/22/19 documented as of this encounter
--- OUTSIDE RECORDS SUMMARY | 2024-06-03 17:51 | XMS_ITS | Encounter Summary ---
Author Organization [employer] Address [address] [facility] 7 [place] [address] Care Team Providers Care Residential Mortgage Underwriter Name Role Phone Katrin Santoyo MD Primary Care Pro vider Edison Vieira MD Unavailable Joe Devi MD Unavailable [phone] Encounter Details Date Type Department Care Team (Late st Contact Info) Description 06/21/2023 Abstract [facility] [address] [place], [place] [phone] Katrin Santoyo MD [address] [place] [address] Social History Tobacco Use Types Packs/Day Years [...] Description 06/04/2024 11:00 AM EST Office Visit [facility] [address] [place] [address] documented as of this encounter Goals Goal Patient Goal Type Associated Problems Recent Progress Patient-Stated? Author Blood Pressure < 140/90 Blood Pressure 158/90(2023 10:23 AM EST) No [facility]-Eve Grier, PharmD Hemoglobin A1c < 7 Result Component 12.5(03/27/20 3:40 PM EST) No NemesiosEve Greene, PharmD documented as of this encounter Visit Diagnoses Not on filedocumented in this encounter Additional Health Concerns Assessment Noted Time PHQ-9 Depression Total Score: 20 023 9:21 AM EDT documented as of this encounter Care Teams Residential Mortgage Underwriter Relationship Specialty Start Date End Date Katrin Santoyo MD [address] [place] [address] PCP - General Internal Medicine 12/13/22 Edison Vieira MD [address] [place] [address] Pulmonary Disease 04/07/24 Joe Devi MD [address] [facility] 3rd [place] [address] Gastroenterology 04/07/24 Carito Roche DNP [address] [facility], [address] [place] [address] Nephrology 04/07/24 [employer] 04/11/24 documented as of this encounter
--- OUTSIDE RECORDS SUMMARY | 2024-06-03 17:51 | XMS_ITS | Encounter Summary ---
Author Organization [employer] [facility] Address [address] [facility] 7t [place] [address] Care Team Providers Care Specialist Field Engineer Name Role Phone Elise Stanford Primary Care Provider [phone] Katrin Santoyo MD Primary Care Pro vider Edison Vieira MD Unavailable [phone] Joe Devi MD Unavailable [phone] Reason for Visit * Reason Onset Date Comments Referral 11/24/2022 Podiatry Encounter Details Date Type Department Care Team (Late st Contact Info) Description 11/24/2022 Telephone [facility] [address] [place] [address] Elise Stanford FNP [address] [place] [address] Dept [place] [address] Referral (Podiatry/) Social History Tobacco Use Types Packs/Day Years [...] encounter Miscellaneous Notes * Telephone Encounter - Anne Ocasio - 11/29/2022 9:46 AM EDT Supervisor Order Takers re-faxed referral to Dr. Smith's office. Supervisor Order Takers called Dr. Smith's office and confirmed that referral was received. Supervisor Order Takers attempted to call patient twice to infirm that he may call to schedule his appt but did not answer and voicemail could not be left due to pt not having voicemail setup. Dr. Smith [address] [place] [address] FAX [phone] * Telephone Encounter - Elizabeth Melo - 11/24/2022 9:51 AM EDT Tc from patient requesting status on podiatry referral. Supervisor Order Takers provided address and phone number and patient stated they told him they don't have a referral or any notes for referral. Patient states he let them know of referral letter and they stated they still need notes to be seen. documented in this encounter Plan of Treatment Upcoming Encounters Date Type Department Care Team (Late st Contact Info) Description 06/04/2024 11:00 AM EST Office Visit [facility] [address] [place] [address] documented as of this encounter Visit Diagnoses Not on filedocumented in this encounter Additional Health Concerns Assessment Noted Time PHQ-9 Depression Total Score: 24 023 2:05 PM EDT documented as of this encounter Care Teams Specialist Field Engineer Relationship Specialty Start Date End Date Elise Stanford FNP PCP - General Family Medicine 11/24/22 12/12/22 Katrin Santoyo MD [address] [place] [address] PCP - General Internal Medicine 12/13/22 Edison Vieira MD [address] [place] [address] Pulmonary Disease 04/07/24 Joe Devi MD [address] 3rd [place] [address] Gastroenterology 04/07/24 Carito Roche DNP [address], [address] [place] [address] Nephrology 04/07/24 [employer] 04/11/24 documented as of this encounter
--- OUTSIDE RECORDS SUMMARY | 2024-06-03 17:51 | XMS_ITS | Encounter Summary ---
Author Organization [employer] [facility] Address [address] [facility] 7t [place] [address] Care Team Providers Care Building Official Name Role Phone Elise Stanford Primary Care Provider [phone] Katrin Santoyo MD Primary Care Pro vider Edison Vieira MD Unavailable [phone] Joe Devi MD Unavailable [phone] Encounter Details Date Type Department Care Team (Latest Contact Info) Description 09/04/2018 Abstract [facility] Dental, Provider, DDS Social History Tobacco Use Types Packs/Day Years [...] Description 06/04/2024 11:00 AM EST Office Visit [facility] [address] [place] [address] documented as of this encounter Visit Diagnoses Not on filedocumented in this encounter Care Teams Building Official Relationship Specialty Start Date End Date Elise Stanford FNP PCP - General Family Medicine 11/24/22 12/12/22 Katrin Santoyo MD [address] [place] [address] PCP - General Internal Medicine 12/13/22 Edison Vieira MD [address] [place] [address] Pulmonary Disease 04/07/24 Joe Devi MD [address]rd [place] [address] Gastroenterology 04/07/24 Carito Roche DNP [address], [address] [place] [address] Nephrology 04/07/24 [employer] 04/11/24 documented as of this encounter
--- OUTSIDE RECORDS SUMMARY | 2024-06-03 17:51 | XMS_ITS | Encounter Summary ---
Author Organization [facility] Address [address] [place] [address] Care Team Providers Care Adhesive Bonding Machine Operator Name Role Phone Deep Pruitt JOHN Primary Care Provider [phone] Encounter Details Date Type Department Care Team (Late st Contact Info) Description 02/13/2018 Scanned Document [facility] [address] [place], [place] [address] Francisco Veloz PA [address] [place] [phone] Social History Tobacco Use Types Packs/Day [...] documented as of this encounter Care Teams Adhesive Bonding Machine Operator Relationship Specialty Start Date End Date Deep Pruitt APRN PCP - General 05/22/19 documented as of this encounter
--- OUTSIDE RECORDS SUMMARY | 2024-06-03 17:51 | XMS_ITS | Encounter Summary ---
Author Organization [facility] Address [address] [place] [address] Care Team Providers Care Coal Mill Operator Name Role Phone [place] Niko LOPEZ Primary Care Provider Encounter Details Date Type Department Care Team (Late st Contact Info) Description 02/19/2020 Scanned Document [facility] [address] [place], [place] [phone] Arben Fountain, NOLVIA [address] [place] [address] Social History Tobacco Use Types [...] often do you attend chur ch or faith services? Never 01/03/2020 Do you belong to [...] Answer Date Recorded PHQ-2 Score 2 10/02/2019 [facility] of Occupat ional Health - Occupational Stress [...] documented as of this encounter Care Teams Coal Mill Operator Relationship Specialty Start Date End Date Deep Pruitt APRN PCP - General 05/22/19 documented as of this encounter
--- OUTSIDE RECORDS SUMMARY | 2024-06-03 17:51 | XMS_ITS | Encounter Summary ---
Author Organization [facility] Address [address] [place] [address] Care Team Providers Care Roofing Machine Tender Name Role Phone Deep Pruitt JOHN Primary Care Provider Encounter Details Date Type Department Care Team (Late st Contact Info) Description 01/02/2017 Scanned Document [facility] [address] [place], [place] [phone] Francisco Veloz PA [address] [place] [address] Social History Tobacco Use Types [...] Procedure Name Priority Date/Time Associated Diagnosis Comments US RESULT SCAN Routine 01/01/2018 documented in this encounter Results * US Result Scan (01/01/2018) us Provider External IMG SCAN REPORTS Final Result documented in this encounter Visit [...] documented as of this encounter Care Teams Roofing Machine Tender Relationship Specialty Start Date End Date eDep Pruitt APRN PCP - General 05/22/19 documented as of this encounter
--- OUTSIDE RECORDS SUMMARY | 2024-06-03 17:51 | XMS_ITS | Encounter Summary ---
Author Organization [facility] Address [address] [place] [address] Care Team Providers Care Dryland Farmer Name Role Phone Deep Pruitt JOHN Primary Care Provider Encounter Details Date Type Department Care Team (Late st Contact Info) Description 02/12/2016 Scanned Document [facility] [address] [place] [address] Francisco Veloz PA [address] [place] [phone] Social History Tobacco Use Types Packs/Day [...] documented as of this encounter Care Teams Dryland Farmer Relationship Specialty Start Date End Date Deep Pruitt APRN PCP - General 05/22/19 documented as of this encounter
--- OUTSIDE RECORDS SUMMARY | 2024-06-03 17:52 | XMS_ITS | Encounter Summary ---
Author Organization [facility] Address [address] [place] [address] Care Team Providers Care Fagot Heater Helper Name Role Phone Deep Pruitt APRN Primary Care Provider [phone] Encounter Details Date Type Department Care Team ([facility] st Contact Info) Description 10/26/2020 Scanned Document [facility] [address] [place], [place] [phone] Deep Pruitt APRN [address] [place] [address] Social History Tobacco Use Types [...] often do you attend chur ch or hoahaoism services? Never 01/03/2020 Do you belong to any clubs o r organizations such as christian groups, unions, fraternal or athletic groups, or [...] Answer Date Recorded PHQ-2 Score 2 07/07/2020 [facility] of Occupat ional Health - Occupational [...] have Coronavirus / COVID-19? No / Unsure 10/19/2020 10:15 AM EDT documented as of this encounter [...] Noted Time PHQ-9 Depression Total Score: 2 10/15/19 21 1:14 PM EDT documented as of this encounter Care Teams Fagot Heater Helper Relationship Specialty Start Date End Date Deep Pruitt APRN PCP - General 05/22/19 documented as of this encounter
--- OUTSIDE RECORDS SUMMARY | 2024-06-03 17:52 | XMS_ITS | Encounter Summary ---
Author Organization [facility] Address [address] [place] [address] Care Team Providers Care Manager Registration Name Role Phone Deep Pruitt APRN Primary Care Provider Reason for Visit * Reason Onset Date Comments Medication Refill 10/12/2021 Encounter Details Date Type Department Care Team (Late st Contact Info) Description 10/12/2021 Refill [facility] [address] [place] [address] Anahi Rossi, JOHN [address] [place] [address] Medication Refill Social History Tobacco [...] often do you attend chur ch or islam services? Never 01/03/2020 Do you belong to [...] Date Recorded PHQ-2 Total Score 0 10/12/2021 [facility] of Occupat ional [facility] - Occupational Stress Questionnaire Answer Date [...] was confirmed or suspected to have Coronavirus/COVID-19? Yes 10/07/2021 1:22 PM EDT documented as of this encounter [...] as of this encounter Care Teams Manager Registration Relationship Specialty Start Date End Date Deep Pruitt APRN PCP - General 05/22/19 documented as of this encounter
--- OUTSIDE RECORDS SUMMARY | 2024-06-03 17:52 | XMS_ITS | Encounter Summary ---
Author Organization [facility] Address [address] [place] [address] Care Team Providers Care Toy Assembler Name Role Phone Deep Pruitt APRN Primary Care Provider Reason for Visit * Reason Comments Medication Refill Encounter Details Date Type Department Care Team ([facility] st Contact Info) Description 11/05/2020 Refill [facility] [address] [place] [address] Deep Pruitt APRN [address] [place] [phone] Medication Refill Social History Tobacco Use [...] any clubs o r organizations such as advent groups, unions, fraternal or athletic groups, or [...] Answer Date Recorded PHQ-2 Score 2 07/07/2020 [facility] of Occupat ional [facility] - Occupational Stress Questionnaire Answer [...] have Coronavirus / COVID-19? No / Unsure 11/05/2020 9:42 AM EDT documented as of this encounter [...] documented as of this encounter Care Teams Toy Assembler Relationship Specialty Start Date End Date Deep Pruitt APRN PCP - General 05/22/19 documented as of this encounter
--- OUTSIDE RECORDS SUMMARY | 2024-06-03 17:52 | XMS_ITS | Encounter Summary ---
Author Organization [facility] Address [address] [place] [address] Care Team Providers Care Automation And Controls Supervisor Name Role Phone Deep Pruitt APRN Primary Care Provider Reason for Visit * Reason Comments Medication Problem Encounter Details Date Type Department Care Team ([facility] Contact Info) Description 10/11/2021 Telephone [facility] [address] [place] [address] Deep Pruitt APRN [address] [place] [address] Medication Problem Social History Tobacco [...] often do you attend chur ch or pentecostal services? Never 01/03/2020 Do you belong to [...] Date Recorded PHQ-2 Total Score 0 10/12/2021 [facility] - Occupational Stress [...] encounter Miscellaneous Notes * Telephone Encounter - Leah Madera LPN - 10/11/2021 11:46 AM EDT Spoke to pharmacy that script was filled and she picked it up on the 08 of October Spoke to sissy via fingernail technician #[id number] (patti) patient states she spoke to the pharmacy and that they told her they did not have the script. Patient is going to call and speak to pharmacy directly to see if issue can be resolved. CCM: 2 minutes 10/11/2021 Leah Madera LPN * Telephone Encounter - Sarah Newman - 10/11/2021 11:30 AM EDT Sissy patients called and stated that she contacted the pharmacy today and she was told thatthey have not received the medication traMADoL (ULTRAM) 50 mg tablet. She is requesting if patient medication can be resent [facility] [place] [facility] [address] . Best contact: [phone] documented in this encounter Plan of Treatment Not on file documented as of this encounter Visit Diagnoses Not on filedocumented in this encounter Additional Health Concerns Infection Onset Date Last Indicated Resolved Time COVID-19 09/29/2021 09/29/2021 10/19/2021 7:19 PM EDT Assessment Noted Time PHQ-9 Depression Total Score: 0 10/08/19 22 1:27 PM EDT documented as of this encounter Care Teams Automation And Controls Supervisor Relationship Specialty Start Date End Date Deep Pruitt APRN PCP - General 05/22/19 documented as of this encounter
--- OUTSIDE RECORDS SUMMARY | 2024-06-03 17:52 | XMS_ITS | Encounter Summary ---
Author Organization [facility] Address [address] [place] [address] Care Team Providers Care Rubber Goods Inspector Name Role Phone Deep Pruitt APRN Primary Care Provider Reason for Visit * Reason Comments Medication Refill Encounter Details Date Type Department Care Team ([facility] st Contact Info) Description 12/29/2020 Refill [facility] [address] [place] [address] Deep Pruitt APRN [address] [place] [phone] Medication Refill Social History Tobacco Use [...] often do you attend chur ch or nondenominational services? Never 01/03/2020 Do you belong to [...] Date Recorded PHQ-2 Total Score 0 11/18/2020 [facility] Occupat ional Health - Occupational [...] documented as of this encounter Care Teams Rubber Goods Inspector Relationship Specialty Start Date End Date Deep Pruitt APRN PCP - General 05/22/19 documented as of this encounter
--- OUTSIDE RECORDS SUMMARY | 2024-06-03 17:52 | XMS_ITS | Encounter Summary ---
Author Organization [facility] Address [address] [place] [address] Care Team Providers Care Plating Department Helper Name Role Phone Deep Pruitt APRN Primary Care Provider Reason for Visit * Reason Comments Medication Refill Encounter Details Date Type Department Care Team ([facility] st Contact Info) Description 11/24/2020 Telephone [facility] [address] [place] [address] Deep Pruitt APRN [address] [place] [address] Medication Refill Social History Tobacco [...] often do you attend chur ch or scientology services? Never 01/03/2020 Do you belong to [...] Date Recorded PHQ-2 Total Score 0 11/18/2020 [facility] Occupat ional Health - Occupational [...] have Coronavirus / COVID-19? No / Unsure 11/26/2020 10:23 AM EDT documented as of this encounter Miscellaneous Notes * Telephone Encounter - Erica Bhardwaj LPN - 11/24/2020 2:38 PM EDT Patient's is requesting all scripts be sent for thirty day supply. She is trying to get pre-pour packets for easy. Patient is on to many medications and having trouble keeping up. CCM: 5 minutes 11/24/2020 Erica Bhardwaj LPN * Telephone Encounter - Poonam Quiroga - 11/24/2020 2:06 PM EDT Sissy called on the behalf of the patient and stated he needs med refills on all of his medication. She also stated she would like a call from the nurse in regards to the quantity of certain medication. Call back number is [phone] (bengali speaking) preferred pharmacy is [facility] [place] [address] documented in this encounter Plan of Treatment [...] documented as of this encounter Care Teams Plating Department Helper Relationship Specialty Start Date End Date Deep Pruitt APRN PCP - General 05/22/19 documented as of this encounter
--- OUTSIDE RECORDS SUMMARY | 2024-06-03 17:52 | XMS_ITS | Encounter Summary ---
Author Organization [facility] Address [address] [place] [address] Care Team Providers Care Assembly Machine Offbearer Name Role Phone Deep Pruitt APRN Primary Care Provider Reason for Visit * Reason Comments Medication Refill Encounter Details Date Type Department Care Team ([facility] st Contact Info) Description 10/20/2020 Refill [facility] [address] [place], [place] [id number] Deep Pruitt APRN [address] [place] [address] Medication Refill Social History Tobacco [...] any clubs o r organizations such as sikh groups, unions, fraternal or athletic groups, or [...] Answer Date Recorded PHQ-2 Score 2 07/07/2020 [facility] Occupat ional Health - Occupational [...] documented as of this encounter Care Teams Assembly Machine Offbearer Relationship Specialty Start Date End Date Deep Pruitt APRN PCP - General 05/22/19 documented as of this encounter
--- OUTSIDE RECORDS SUMMARY | 2024-06-03 17:52 | XMS_ITS | Encounter Summary ---
Author Organization [facility] Address [address] [place] [address] Care Team Providers Care Clinical Laboratory Science Professor Name Role Phone Deep Pruitt APRN Primary Care Provider Reason for Visit * Reason Comments Other Appointment Encounter Details Date Type Department Care Team ([facility] Contact Info) Description 10/07/2021 Telephone [facility] [address] [place] [address] Deep Pruitt APRN [address] [place] [address] Other; Appointment Social History Tobacco Use Types Packs/Day Years [...] often do you attend chur ch or congregation services? Never 01/03/2020 Do you belong to [...] Answer Date Recorded PHQ-2 Total Score 0 10/07/2021 [facility] Occupat ional Health - Occupational Stress [...] encounter Miscellaneous Notes * Telephone Encounter - Rachel Fernandez - 10/07/2021 2:07 PM EDT Patients is calling in after dropped call ,patient has virtual appt [phone] documented in this encounter Plan of Treatment Not on file documented as of this encounter Visit Diagnoses Not on filedocumented in this encounter Additional Health Concerns Infection Onset Date Last Indicated Resolved Time COVID-19 09/29/2021 09/29/2021 10/19/2021 7:19 PM EDT Assessment Noted Time PHQ-9 Depression Total Score: 0 10/08/19 22 1:27 PM EDT documented as of this encounter Care Teams Clinical Laboratory Science Professor Relationship Specialty Start Date End Date Deep Pruitt APRN PCP - General 05/22/19 documented as of this encounter
--- OUTSIDE RECORDS SUMMARY | 2024-06-03 17:52 | XMS_ITS | Encounter Summary ---
Author Organization [facility] Address [address] [place] [address] Care Team Providers Care Jig Maker Name Role Phone Deep Pruitt APRN Primary Care Provider Reason for Visit * Reason Comments Other Advice Only Encounter Details Date Type Department Care Team ([facility] Contact Info) Description 09/28/2021 Telephone [facility] [address] [place] [address] Deep Pruitt APRN [address] [place] [address] Other; Advice Only Social History Tobacco Use Types Packs/Day Years [...] PHQ-2 Answer Date Recorded PHQ-2 Total Score 5 09/14/2021 [facility] Occupat ional Health - [...] suspected to have Coronavirus/COVID-19? No / Unsure 09/29/2021 1:33 PM EDT documented as of this encounter Miscellaneous Notes * Telephone Encounter - Perla Rice RN - 09/28/2021 4:20 PM EDT Call was placed to patient and he was scheduled for virtual appt tomorrow * Telephone Encounter - Rachel Fernandez - 09/28/2021 2:04 PM EDT Patient is calling in because he did a covid test at home and came out positive because he has all the symptom ,but patient is requesting a call back to seen if something can be given because his underlying condition. Patient [phone] documented in this encounter Plan of Treatment Not on file documented as of this encounter Visit Diagnoses Not on filedocumented in this encounter Additional Health Concerns Infection Onset Date Last Indicated Resolved Time COVID-19 09/29/2021 09/29/2021 10/19/2021 7:19 PM EDT Assessment Noted Time PHQ-9 Depression Total Score: 7 09/15/19 22 10:31 AM EDT documented as of this encounter Care Teams Jig Maker Relationship Specialty Start Date End Date Deep Pruitt APRN PCP - General 05/22/19 documented as of this encounter
--- OUTSIDE RECORDS SUMMARY | 2024-06-03 17:52 | XMS_ITS | Encounter Summary ---
Author Organization [facility] Address [address] [place] [phone] Care Team Providers Care Group Exercise Class Instructor Name Role Phone Deep Pruitt APRN Primary Care Provider Reason for Visit * Reason Onset Date Comments Medication Refill 09/22/2021 Encounter Details Date Type Department Care Team (Late st Contact Info) Description 09/22/2021 Refill [facility] [address] [id number] [facility] [address] [place] [address] Kaity Harris, PHARMACEUTICAL OPERATOR [address] [place] [phone] Medication Refill Social History Tobacco Use Types [...] any clubs o r organizations such as yazdanism groups, unions, fraternal or athletic groups, or [...] Date Recorded PHQ-2 Total Score 5 09/14/2021 [facility] - Occupational Stress Questionnaire Answer Date Recorded [...] have Coronavirus / COVID-19? No / Unsure 09/08/2021 2:14 PM EDT documented as of this encounter Plan of Treatment Not on file documented as of this encounter Visit Diagnoses Diagnosis Type 2 diabetes mellitus with diabetic neuropathy, with long-term current use of insulin (HC Code) documented in this encounter Additional Health Concerns Infection Onset Date Last Indicated Resolved Time COVID-19 09/29/2021 09/29/2021 10/19/2021 7:1 9 PM EDT Assessment Noted Time PHQ-9 Depression Total Score: 7 09/15/19 22 10:31 AM EDT documented as of this encounter Care Teams Group Exercise Class Instructor Relationship Specialty Start Date End Date Deep Pruitt APRN PCP - General 05/22/19 documented as of this encounter
--- OUTSIDE RECORDS SUMMARY | 2024-06-03 17:52 | XMS_ITS | Encounter Summary ---
Author Organization [facility] Address [address] [place] [phone] Care Team Providers Care Housekeeper/Custodian/Laundry Worker Name Role Phone Deep Pruitt APRN Primary Care Provider Encounter Details Date Type Department Care Team (Latest Contact Info) Description 09/09/2021 Transcribed Orders [facility] [address] [place] [address] Deep Pruitt APRN [address] [place] [address] Encounter for routine screening for malformation using ultrasonics (Primary Dx); Special screening for malignant neoplasm of prostate; Routine general medical examination at a health care facility Social History Tobacco Use Types Packs/Day Years [...] Answer Date Recorded PHQ-2 Total Score 2 09/08/2021 [facility] - Occupational Stress Questionnaire Answer [...] as of this encounter Plan of Treatment Scheduled Orders Name Type Priority Associated Diagnoses Orde r Schedule TSH w/reflex to FT4 ([facility] LMW Q YH) Lab Routine Encounter for routine screening for malformation using ultrasonics Special screening for malignant neoplasm of prostate Routine general medical examination at a health care facility 1 Occurrences starting 09/09/2021 until 09/09/2022 documented as of this encounter Procedures Procedure Name Priority Date/Time Associated Diagnosis Comments COMPREHENSIVE METABOLIC PANEL Routine 09/09/2021 12:05 PM EDT Encounter for routine screening for malformation using ultrasonics Special screening for malignant neoplasm of prostate Routine general medical examination at a health care facility TSH W/REFLEX TO FT4 ([facility] LMW Q YH) Routine 09/09/2021 12:05 PM EDT Encounter for routine screening for malformation using ultrasonics Special screening for malignant neoplasm of prostate Routine general medical examination at a health care facility PSA, TOTAL AND FREE Routine 09/09/2021 1 2:05 PM EDT Encounter for routine screening for malformation using ultrasonics Special screening for malignant neoplasm of prostate LDL CHOLESTEROL, DIRECT Routine 09/09/2021 12:05 PM EDT Encounter for routine screening for malformation using ultrasonics Special screening for malignant neoplasm of prostate Routine general medical examination at a health care facility COMPREHENSIVE METABOLIC PANEL Routine 09/09/2021 12:05 PM EDT Encounter for routine screening for malformation using ultrasonics Special screening for malignant neoplasm of prostate Routine general medical examination at a [facility] care facility ALBUMIN/CREATININE PANEL, URINE, RANDOM Routine 09/09/2021 11:01 AM EDT Encounter for routine screening for malformation using ultrasonics Special screening for malignant neoplasm of prostate Routine general medical examination at a [facility] care facility CBC WITH AUTO DIFFERENTIAL Routine 09/09/2021 10:58 AM EDT Encounter for routine screening for malformation using ultrasonics Special screening for malignant neoplasm of prostate Routine general medical examination at a [facility] care facility CBC AND DIFFERENTIAL Routine 09/09/2021 10:58 AM EDT Encounter for routine screening for malformation using ultrasonics Special screening for malignant neoplasm of prostate Routine general medical examination at a [facility] care facility HEMOGLOBIN A1C Routine 09/09/2021 10:58 AM EDT Encounter for routine screening for malformation using ultrasonics Special screening for malignant neoplasm of prostate Routine general medical examination at a health care facility documented in this encounter Results * PSA, total and free (09/09/2021 12:05 PM EDT) Prostate Specific Antigen, Total (YH) 0.578 0.000 - 3.900 ng/mL 09/13/2021 1:44 PM EDT [facility] DEPART[facility] OF LABORATORY MEDICINE Prostate Specific Antigen, Free (YH) 0.28 0.00 - 3.90 ng/mL 09/13/2021 1:44 PM EDT [facility]PART[facility] OF LABORATORY MEDICINE Comment:Prostate Specific An tigen, Free Percentage can not be calculated. PSA, Total value out of appropriate range. Blood Venipuncture / Unknown 09/09/2021 12:05 PM EDT 09/13/2021 10:48 AM EDT Narrative [facility] DEPARTMENT OF LABORATORY MEDICINE - 09/13/2021 1:44 PM EDT Prostate Specific Antigen, Free Percentage is calculated as (Prostate Specific Antigen, Free/Prostate Specific Antigen, Total) x 100 in the range of 2-10 ng/mL. ??Reported studies indicate that malignancy is associated with a lower percentage of Prostate Specific Antigen, Free than that observed in benign conditions. ??These studies indicate that an upper limit ?? (cutoff) of 25% is associated with a sensitivity of 95% for detection of prostatic cancer in patients with a Prostate Specific Antigen, Total in the range of 4-10 ng/mL and normal digital rectal examination. ?? Its usefulness in patients whose Prostate Specific Antigen, Total is outside the range of 4-10 ng/mL has not been well documented, although some studies suggest that a similar cut-off may apply to total values in the 2-4 ng/mL range. Deep Pruitt [facility] LAB BLOOD ORDERABLES Final Result Performing Organization Address City/State/[facility] Co de Phone Number [facility] DEPARTMENT OF LABORATORY MEDICINE [address] [place] [address] * (ABNORMAL) Comprehensive metabolic panel (09/09/2021 12:05 PM EDT) Sodium 140 136 - 144 mmol/L 09/09/2021 2:42 PM EDT [facility] Potassium 4.9 3.3 - 5.3 mmol/L 09/09/2021 2:42 PM EDT [facility] Chloride 101 98 - 107 mmol/L 09/09/2021 2:42 PM EDT [facility] CO2 27 20 - 30 mmol/L 09/09/2021 2:42 PM EDT [facility] Anion Gap 12 7 - 17 09/09/2021 2:42 PM EDT [facility] Glucose 148(H) 70 - 100 mg/dL 09/09/2021 2:42 PM EDT [facility] BUN 31(H) 6 - 20 mg/dL 09/09/2021 2:42 PM EDT [facility] Creatinine 1.40(H) 0.40 - 1.30 mg/dL 09/09/2021 2:42 PM EDT [facility] Calcium 9.5 8.8 - 10.2 mg/dL 09/09/2021 2:42 PM T [facility] BUN/Creatinine Ratio 22.1 8.0 - 23.0 0509/2021 2:42 PM EDT [facility] Total Protein 6.4(L) 6.6 - 8.7 g/dL 09/09/2021 2:42 PM EDT [facility] Albumin 3.6 3.6 - 4.9 g/dL 09/09/2021 2:42 PM T [facility] Total Bilirubin 0.2 <=1.2 mg/dL 09/09/2021 2:42 PM T [facility] Alkaline Phosphatase 135(H) 9 - 122 U/L 09/09/2021 2:42 PM T [facility] Alanine Aminotransferase (ALT) 40 9 - 59 U/L 09/09/2021 2:42 PM T [facility] Comment:Calcium dobesilate c an cause artificially low ALT results at therapeutic concentrations Aspartate Aminotransferase (AST) 33 10 - 35 U/L 09/09/2021 2:42 PM T [facility] Globulin 2.8 2.3 - 3.5 g/dL 09/09/2021 2:42 PM T [facility] A/G Ratio 1.3 1.0 - 2.2 09/09/2021 2:42 PM T [facility] AST/ALT Ratio 0.8 See Comment 09/09/2021 2:42 PM T [facility] Comment: Adult with mild elevations of transaminases (< 5 times upper limit of normal): AST/ALT > 2 suggests alcoholic liver injury AST/ALT < 1 suggests non-alcoholic fatty liver disease (NAFLD) (healthy): AST/ALT can be > 3 on day 0 AST/ALT < 2 by day 5 The thresholds provided focus on the most common etiologies of elevated serum transaminase levels and the associated alteration of AST:ALT ratios; they are not intended to exclude other feasible and clinically appropriate possibilities eGFR (Afr Amer) >60 >60 mL/min/1.7 3m2 09/09/2021 2:42 PM EDT [facility] Comment: Values under 60mL/min/1.73m2 may indicate CKD if noted for ?? more than 3 months. eGFR is only valid if creatinine is at steady state. eGFR (NON -Czech) 53 >60 mL/min/1.7 3m2 09/09/2021 2:42 PM EDT [facility] Comment: Values under 60mL/min/1.73m2 may indicate CKD if noted for ?? more than 3 months. eGFR is only valid if creatinine is at steady state. Blood Venipuncture / Unknown 09/09/2021 12:05 PM EDT 09/09/2021 12:05 PM EDT Deep Pruitt REGISTERED DIET TECHNICIAN LAB BLOOD ORDERABLES Final Result Performing Organization Address City/[facility]/ZIP Co de Phone Number [facility] [address] [place] [address] * TSH w/reflex to FT4 ( [facility] LMW Q YH) (09/09/2021 12:05 PM EDT) Thyroid Stimulating Hormone 3.640 See Comment ??IU/mL 09/09/2021 2:42 PM EDT [facility] Comment: Male & Non- Females: 0.270-4.200 ??IU/mL 1st Trimester: 0.110-3.480 ??IU/mL 2nd Trimester: 0.320-3.850 ??IU/mL Blood Venipuncture / Unknown 09/09/2021 12:05 PM EDT 09/09/2021 12:05 PM EDT Deep Pruitt REGISTERED DIET TECHNICIAN LAB BLOOD ORDERABLES Final Result Performing Organization Address City/[facility]/ZIP Co de Phone Number [facility] [address] [place] [address] * LDL cholesterol, direct (09/09/2021 12:05 PM EDT) LDL Direct 63 See Comment mg/dL 09/09/2021 2:41 PM EDT [facility] Comment: LDL Cholesterol (mg/dL) ?Adults (>=18 years) ?Children (<18 years) Desirable ?<100 ? <110 Above Desirable ?100-129 ?Not Established Borderline-High ?130-159 ?110- 129 High ? 160-189 ?>=130 Very High? >=190 ?Not Established Blood Venipuncture / Unknown 09/09/2021 12:05 PM EDT 09/09/2021 12:05 PM EDT us Deep Pruitt APRN LAB BLOOD ORDERABLES Final Result Performing Organization Address [facility]/ZIP Co de Phone Number [facility] [address] [place] [phone] [place] [address] * (ABNORMAL) Albumin/creatinine panel, urine, random (09/09/2021 11:01 AM EDT) Albumin, Urine, Random 1,616.3 Reference Range Not Established mg/L 09/09/2021 2:52 PM EDT [facility] Creatinine, Urine, Random 35 Reference Range Not Established mg/dL 09/09/2021 2:52 PM EDT [facility] Albumin/Creatin ine Ratio, Urine, Random 4,684.9(H ) <30.0 mg/g Cr 09/09/2021 2:52 PM EDT [facility] Comment: High albuminuria (formerly microalbuminuria): ??30-300 mg/g Cr Very high albuminuria (overt albuminuria): ? >300 mg/g Cr Urine Collection / Unknown 09/09/2021 11:01 AM EDT 09/09/2021 11:01 AM EDT Deep Pruitt APRN URINE ORDERABLES Final Resu lt Performing Organization Address [facility] Co de Phone Number [address] [address] [phone] * (ABNORMAL) CBC auto differential (09/09/2021 10:58 AM EDT) WBC 13.5(H) 4.0 - 11.0 x1000/??L 09/09/2021 2:16 PM EDT [facility] RBC 5.05 4.00 - 6.00 M/??L 09/09/2021 2:16 PM EDT [facility] Hemoglobin 13.9 13.2 - 17.1 g/dL 09/09/2021 2:16 PM EDT [facility] Hematocrit 46.10 38.50 - 50.00 % 09/09/2021 2:16 PM EDT [facility] MCV 91.3 80.0 - 100.0 fL 09/09/2021 2:16 PM EDT [facility] MCH 27.5 27.0 - 33.0 pg 09/09/2021 2:16 PM EDT [facility] MCHC 30.2(L) 31.0 - 36.0 g/dL 09/09/2021 2:16 PM EDT [facility] RDW-CV 15.1(H) 11.0 - 15.0 % 09/09/2021 2:16 PM EDT [facility] Platelets 298 150 - 420 x1000/??L 09/09/2021 2:16 PM EDT [facility] MPV 13.0(H) 8.0 - 12.0 fL 09/09/2021 2:16 PM EDT [facility] Neutrophils 63.6 39.0 - 72.0 % 09/09/2021 2:16 PM EDT [facility] Lymphocytes 22.5 17.0 - 50.0 % 09/09/2021 2:16 PM EDT [facility] Monocytes 9.2 4.0 - 12.0 % 09/09/2021 2:16 PM EDT [facility] Eosinophils 3.6 0.0 - 5.0 % 09/09/2021 2:16 PM EDT [facility] Basophil 0.4 0.0 - 1.4 % 09/09/2021 2:16 PM EDT [facility] Immature Granulocytes 0.7 0.0 - 1.0 % 09/09/2021 2:16 PM EDT [facility] nRBC 0.0 0.0 - 1.0 % 09/09/2021 2:16 PM EDT [facility] ANC(Abs Neutrophil Count) 8.60(H) 2.00 - 7.60 x 1000/??L 09/09/2021 2:16 PM EDT [facility] Absolute Lymphocyte Count 3.05 0.60 - 3.70 x 1000/??L 09/09/2021 2:16 PM EDT [facility] Monocyte Absolute Count 1.24(H) 0.00 - 1.00 x 1000/??L 09/09/2021 2:16 PM EDT [facility] Eosinophil Absolute Count 0.49 0.00 - 1.00 x 1000/??L 09/09/2021 2:16 PM EDT [facility] Basophil Absolute Count 0.06 0.00 - 1.00 x 1000/??L 09/09/2021 2:16 PM EDT [facility] Absolute Immature Granulocyte Count 0.10 0.00 - 0.30 x 1000/??L 09/09/2021 2:16 PM EDT [facility] Absolute nRBC 0.00 0.00 - 1.00 x 1000/??L 09/09/2021 2:16 PM EDT [facility] Blood Venipuncture / Unknown 09/09/2021 10:58 AM EDT 09/09/2021 10:58 AM EDT Deep Pruitt APRN LAB BLOOD ORDERABLES Final Result [facility] [address] [place] [address] * (ABNORMAL) Hemoglobin A1c (09/09/2021 10:58 AM EDT) Hemoglobin A1c 11.5(H) 4.0 - 5.6 % 09/10/2021 6:36 PM EDT [facility]PART[facility] OF [facility]ATORY MEDICINE Comment: Hemoglobin A1c values of 5.7-6.4 % identify individuals with an increased risk for future diabetes and to whom the term pre-diabetes may be applied. ??Hemoglobin A1c values greater than 6.4% on more than one occasion are diagnostic of diabetes. Lowering HbA1c to below 7% is considered to reduce microvascular and neuropathic complications of diabetes. This boronate affinity Hb A1c method provides accurate analytical results in the presence of nearly all Hb variants. Hb F higher than 10% of total Hb may yield falsely low results. Conditions that shorten red cell survival, such as the presence of unstable hemoglobins like Hb SS, Hb CC, and Hb SC, or other causes of hemolytic anemia may yield falsely low results. Iron deficiency anemia may yield falsely high results. Estimated Average Glucose mg/dL 283 mg/dL 09/10/2021 6:36 PM EDT [facility]PART[facility] OF LABORATORY MEDICINE Comment: Estimated average glucose (eAG) is a calculated value designed to estimate ??the expected average blood glucose level throughout the day from a single ??measurement of ??glycated hemoglobin A1C (HbA1c) and follows the calculation proposed by the [place] [employer] (Diabetes Care 31: 1-6, 2008). It may have less accuracy in children, women and patients with certain erythrocyte disorders. Blood Venipuncture / Unknown 09/09/2021 10:58 AM EDT 09/09/2021 10:58 AM EDT Deep Pruitt APRN LAB BLOOD ORDERABLES Final Result [facility] DEPARTMENT OF LABORATORY MEDICINE [address] [place] [address] documented in this encounter Visit Diagnoses Diagnosis Encounter for routine screening for malformation using ultrasonics- Primary Special screening for malignant neoplasm of prostate Routine general medical examination at a health care facility documented in this encounter Additional Health Concerns Infection Onset Date Last Indicated Resolved Time COVID-19 09/29/2021 09/29/2021 10/19/2021 7:19 PM EDT Assessment Noted Time PHQ-9 Depression Total Score: 2 09/09/19 22 2:15 PM EDT documented as of this encounter Care Teams Housekeeper/Custodian/Laundry Worker Relationship Specialty Start Date End Date Deep Pruitt APRN PCP - General 05/22/19 documented as of this encounter
--- OUTSIDE RECORDS SUMMARY | 2024-06-03 17:52 | XMS_ITS | Encounter Summary ---
Author Organization [facility] Address [address] [place] [phone] Care Team Providers Care Esl Professor Name Role Phone Deep Pruitt APRN Primary Care Provider Reason for Visit * Reason Onset Date Comments Medication Refill 10/12/2021 Encounter Details Date Type Department Care Team (Late st Contact Info) Description 10/12/2021 Refill [facility] [address] [facility] [address] [facility] 2nd [place] [address] Taylor Malagon, [facility] [address] [place] [phone] Medication Refill Social History Tobacco Use Types [...] any clubs o r organizations such as episcopal groups, unions, fraternal or athletic groups, or [...] Date Recorded PHQ-2 Total Score 0 10/12/2021 [facility] - Occupational Stress Questionnaire Answer Date [...] Telephone Encounter - Ezio Ballard RN - 10/12/2021 8:03 AM EDT Per visit on 09/14/21 with Taylor Malagon, Current regimen is carvedilol 25 mg bid, Losartan 50 mgbid, and furosemide 80 mg/day. On this regimen, [...] Time PHQ-9 Depression Total Score: 0 10/13/19 2:23 PM EDT documented as of this encounter Care Teams Esl Professor Relationship Specialty Start Date End Date Deep Pruitt APRN PCP - General 05/22/19 documented as of this encounter
--- OUTSIDE RECORDS SUMMARY | 2024-06-03 17:52 | XMS_ITS | Encounter Summary ---
Author Organization [facility] Address [address] [place] [address] Care Team Providers Care Rubber Stamp Maker Name Role Phone Deep Pruitt APRN Primary Care Provider Encounter Details Date Type Department Care Team ([facility] st Contact Info) Description 11/14/2020 Scanned Document [facility] [address], [place] [phone] Deep Pruitt APRN [address] [place] [address] Social History Tobacco Use Types [...] often do you attend chur ch or cheondoism services? Never 01/03/2020 Do you belong to [...] Date Recorded PHQ-2 Total Score 0 11/18/2020 [facility]at [facility] - [...] as of this encounter Care Teams Rubber Stamp Maker Relationship Specialty Start Date End Date Deep Pruitt APRN PCP - General 05/22/19 documented as of this encounter
--- OUTSIDE RECORDS SUMMARY | 2024-06-03 17:52 | XMS_ITS | Encounter Summary ---
Author Organization [facility] Address [address] [place] [phone] Care Team Providers Care Clinical Material Handler Name Role Phone Deep Pruitt APRN Primary Care Provider Encounter Details Date Type Department Care Team (Latest Contact Info) Description 09/13/2021 Transcribed Orders [facility] [address] [place] [address] Deep Pruitt APRN [address] [place] [address] Encounter for routine screening for malformation using ultrasonics (Primary Dx); Special screening for malignant neoplasm of prostate Social History Tobacco Use Types Packs/Day Years [...] often do you attend chur ch or sabianism services? Never 01/03/2020 Do you belong to any clubs o r organizations such as muslim groups, unions, fraternal or athletic groups, or [...] Date Recorded PHQ-2 Total Score 5 09/14/2021 [facility]at ional Health [...] on file documented as of this encounter Results * PSA, total and free (09/09/2021 12:05 PM EDT) Prostate Specific Antigen, Total (YH) 0.578 0.000 - 3.900 ng/mL 09/13/2021 1:44 PM EDT [facility] Prostate Specific Antigen, Free (YH) 0.28 0.00 - 3.90 ng/mL 09/13/2021 1:44 PM EDT [facility] Comment:Prostate Specific An tigen, Free Percentage can not be calculated. PSA, Total value out of appropriate range. Blood Venipuncture / Unknown 09/09/2021 12:05 PM EDT 09/13/2021 10:48 AM EDT Narrative [facility] - 09/13/2021 1:44 [...] in the 2-4 ng/mL range. Deep Pruitt APRN LAB BLOOD ORDERABLES Final Result [facility] [address] [place] [address] documented in this encounter Visit Diagnoses Diagnosis Encounter for routine screening for malformation using ultrasonics- Primary Special screening for malignant neoplasm of prostate documented in this encounter Additional Health Concerns Infection Onset Date Last Indicated Resolved Time COVID-19 09/29/2021 09/29/2021 10/19/2021 7:19 PM EDT Assessment Noted Time PHQ-9 Depression Total Score: 2 09/09/19 22 2:15 PM EDT documented as of this encounter Care Teams Clinical Material Handler Relationship Specialty Start Date End Date Deep Pruitt APRN PCP - General 05/22/19 documented as of this encounter
--- OUTSIDE RECORDS SUMMARY | 2024-06-03 17:52 | XMS_ITS | Encounter Summary ---
Author Organization [facility] Address [address] [place] [address] Care Team Providers Care Application Support Consultant Name Role Phone Deep Pruitt JOHN Primary Care Provider Reason for Visit * Reason Onset Date Comments Medication Refill 10/12/2021 Encounter Details Date Type Department Care Team (Late st Contact Info) Description 10/12/[address] [facility] Nutrition at [address] [phone] Angie Mcghee MD [address] [place] [phone] Medication Refill Social History Tobacco Use Types [...] any clubs o r organizations such as christianity groups, unions, fraternal or athletic groups, or [...] Date Recorded PHQ-2 Total Score 0 10/12/2021 [facility] of Occupat ional [...] as of this encounter Care Teams Application Support Consultant Relationship Specialty Start Date End Date Deep Priutt APRN PCP - General 05/22/19 documented as of this encounter
--- OUTSIDE RECORDS SUMMARY | 2024-06-03 17:52 | XMS_ITS | Encounter Summary ---
Author Organization [facility] Address [address] [place] [address] Care Team Providers Care Roving Winder Name Role Phone Deep Pruitt APRN Primary Care Provider Reason for Visit * Reason Comments Medication Refill Encounter Details Date Type Department Care Team ([facility] st Contact Info) Description 11/11/2020 Refill [facility] [address] [place] [address] Deep Pruitt APRN [address] [place] [phone] Medication Refill Social History Tobacco Use [...] often do you attend chur ch or anabaptism services? Never 01/03/2020 Do you belong to [...] Answer Date Recorded PHQ-2 Score 2 07/07/2020 [facility] Occupat ional [facility] - Occupational Stress Questionnaire Answer Date Recorded [...] documented as of this encounter Care Teams Roving Winder Relationship Specialty Start Date End Date Deep Pruitt APRN PCP - General 05/22/19 documented as of this encounter
--- OUTSIDE RECORDS SUMMARY | 2024-06-03 17:52 | XMS_ITS | Encounter Summary ---
Author Organization [facility] Address [address] [place] [address] Care Team Providers Care Governor Assembler Name Role Phone EarleDeep medina Niko LOPEZ Primary Care Provider Reason for Visit * Reason Onset Date Comments Medication Refill 09/22/2021 Encounter Details Date Type Department Care Team (Late st Contact Info) Description 09/22/2021 Refill [facility] Nutrition at [address] [address] Zena Hines PA [address] [place] [phone] Medication Refill Social History Tobacco Use [...] Date Recorded PHQ-2 Total Score 5 09/14/2021 [facility] of Occupat ional Health - Occupational [...] * Telephone Encounter - Katrin Yang - 09/22/2021 8:50 AM EDT Hi, Dr Lazaro Please review pt is no longer seeing Zena Hines at [facility] for DM mangement. Nate, Katrin documented in this encounter Plan of [...] documented as of this encounter Care Teams Governor Assembler Relationship Specialty Start Date End Date Deep Pruitt APRN PCP - General 05/22/19 documented as of this encounter
--- OUTSIDE RECORDS SUMMARY | 2024-06-03 17:52 | XMS_ITS | Encounter Summary ---
Author Organization [facility] Address [address] [place] [phone] Care Team Providers Care Customer Security Clerk Name Role Phone Deep Pruitt APRN Primary Care Provider Reason for Visit * Reason Onset Date Comments Medication Refill 09/30/2021 Encounter Details Date Type Department Care Team (Late st Contact Info) Description 09/30/2021 Refill [facility] [address] [facility] [address] [facility] 2nd [place] [address] Rubin Valderrama, [facility] [address] [place] [phone] Medication Refill Social History Tobacco Use Types [...] any clubs o r organizations such as scientology groups, unions, fraternal or athletic groups, or [...] Date Recorded PHQ-2 Total Score 5 09/14/2021 [facility] of Occupat ional [facility] - Occupational Stress Questionnaire Answer Date [...] Telephone Encounter - Ezio Ballard RN - 09/30/2021 11:42 AM EDT Per visit on 09/14/21 with rubin valderrama, Hypertension: Better in clinic today, but unknown at home. Defer to [facility] pharmacy team for antihypertensive management. Current regimen is carvedilol 25 mg bid, Losartan 50 mg bid, and furosemide 80 mg/day. documented in this encounter Plan of Treatment Not on file documented as of this encounter Visit Diagnoses Diagnosis Edema of both feet documented in this encounter Additional Health Concerns Infection Onset Date Last Indicated Resolved Time COVID-19 09/29/2021 09/29/2021 10/19/2021 7:19 PM EDT Assessment Noted Time PHQ-9 Depression Total Score: 7 09/15/19 10:31 AM EDT documented as of this encounter Care Teams Customer Security Clerk Relationship Specialty Start Date End Date Deep Pruitt APRN PCP - General 05/22/19 documented as of this encounter
--- OUTSIDE RECORDS SUMMARY | 2024-06-03 17:52 | XMS_ITS | Encounter Summary ---
Author Organization [facility] Address [address] [place] [address] Care Team Providers Care Personnel Research Psychologist Name Role Phone Thompson RidgeRomeliaDeep Niko LOPEZ Primary Care Provider Reason for Visit * Reason Onset Date Comments Medication Refill 10/12/2021 Encounter Details Date Type Department Care Team (Late st Contact Info) Description 10/12/2021 Refill [facility] [address] [place] [address] Cecile Oneal, DMD [address] [place] [address] Medication Refill Social History Tobacco [...] any clubs o r organizations such as methodist groups, unions, fraternal or athletic groups, or [...] Date Recorded PHQ-2 Total Score 0 10/12/2021 [facility] of Occupat ional Health - Occupational [...] documented as of this encounter Care Teams Personnel Research Psychologist Relationship Specialty Start Date End Date Deep Pruitt APRN PCP - General 05/22/19 documented as of this encounter
--- OUTSIDE RECORDS SUMMARY | 2024-06-03 17:52 | XMS_ITS | Encounter Summary ---
Author Organization [facility] Address [address] [place] [address] Care Team Providers Care Audio Visual Tech Name Role Phone Deep Pruitt APRN Primary Care Provider Reason for Visit * Reason Comments Medication Refill Encounter Details Date Type Department Care Team ([facility] st Contact Info) Description 11/11/2020 Refill [facility] [address] [place] [address] Deep Pruitt APRN [address] [place] [phone] Medication Refill Social History Tobacco Use [...] any clubs o r organizations such as jain groups, unions, fraternal or athletic groups, or [...] Recorded PHQ-2 Score 2 07/07/2020 [facility] of Occupat ional [facility] - Occupational Stress Questionnaire Answer [...] documented as of this encounter Care Teams Audio Visual Tech Relationship Specialty Start Date End Date Deep Pruitt APRN PCP - General 05/22/19 documented as of this encounter
--- OUTSIDE RECORDS SUMMARY | 2024-06-03 17:52 | XMS_ITS | Encounter Summary ---
Author Organization [facility] [employer] and [facility] Address [address] [place] [phone] Care Team Providers Care Sales Service Technician Name Role Phone Deep Pruitt APRN Primary Care Provider Reason for Visit * Reason Onset Date Comments Medication Refill 09/30/2021 Encounter Details Date Type Department Care Team (Late st Contact Info) Description 09/30/2021 Refill [facility] at [address] [place] [address] Kaity Harris, [employer] ARTILLERY CREWMEMBER [address] [place] [phone] Medication Refill Social History Tobacco Use Types [...] often do you attend chur ch or voodoo services? Never 01/03/2020 Do you belong to [...] Date Recorded PHQ-2 Total Score 5 09/14/2021 [facility] - Occupational Stress Questionnaire Answer Date [...] documented as of this encounter Care Teams Sales Service Technician Relationship Specialty Start Date End Date Deep Pruitt APRN PCP - General 05/22/19 documented as of this encounter
--- OUTSIDE RECORDS SUMMARY | 2024-06-03 17:52 | XMS_ITS | Encounter Summary ---
Author Organization [employer] Address [address] [facility] 7t [place] [address] Care Team Providers Care Smelter Operator Name Role Phone Katrin Santoyo MD Primary Care Pro vider Edison Vieira MD Unavailable [phone] Joe Devi MD Unavailable [phone] Reason for Visit * Reason Onset Date Comments FYI 05/22/2024 Encounter Details Date Type Department Care Team (Late st Contact Info) Description 05/22/2024 Telephone [facility] MEDICINE [address] [place], [place] [phone] Katrin Santoyo MD [address] [place], [place] [phone] Social History Tobacco Use Types Packs/Day Years [...] encounter Miscellaneous Notes * Telephone Encounter - Taylor Thomas RN - 05/22/2024 2:50 PM EST TC placed to Myrtle at [facility] who confirmed that while pt was doing physical therapy this morning the blood pressure of the pt was elevated around 144/110. Pt did not take any of hi medication yet when the reading was taken. Myrtle is going out to see the pt again on Monday and will take the pt BP again and call back if it continues to be elevated. * Telephone Encounter - Zackary Conley - 05/22/2024 2:08 PM EST Tc from [employer] from [employer] calling about a pt taking Physical Therapy at home. Calling to report that pt BP was Elevated (144/110) and that pt has not taken his meds prior to BP reading. documented in this encounter Plan of Treatment Upcoming Encounters Date Type Department Care Team (Late st Contact Info) Description 06/04/2024 11:00 AM EST Office Visit [facility] MEDICINE [address] [place] [address] documented as of this encounter Goals Goal [...] documented as of this encounter Care Teams Smelter Operator Relationship Specialty Start Date End Date Katrin Santoyo MD [address] [place] [phone] PCP - General Internal Medicine 12/13/22 Edison Vieira MD [address] [place] [address] Pulmonary Disease 04/07/24 Joe Devi MD [address] [place] [address] 3rd [place] [address] Gastroenterology 04/07/24 Carito Roche DNP [address] [facility], [address] [place] [address] Nephrology 04/07/24 [employer] 04/11/24 documented as of this encounter
--- OUTSIDE RECORDS SUMMARY | 2024-06-03 17:52 | XMS_ITS | Encounter Summary ---
Author Organization [facility] [employer] and [facility] Address [address] [place] [phone] Care Team Providers Care Plastic Fabricator Name Role Phone Deep Pruitt APRN Primary Care Provider Reason for Visit * Reason Onset Date Comments Medication Refill 09/20/2021 Encounter Details Date Type Department Care Team (Late st Contact Info) Description 09/20/2021 Refill [facility] [address] [facility] [address] [facility] 2nd [place] [address] Ricarda Du MD [address] [place] [phone] Medication Refill Social History Tobacco Use Types [...] often do you attend chur ch or druze services? Never 01/03/2020 Do you belong to any clubs o r organizations such as religion groups, unions, fraternal or athletic groups, or [...] Date Recorded PHQ-2 Total Score 5 09/14/2021 [facility] of Occupat ional Health - Occupational [...] Miscellaneous Notes * Telephone Encounter - Ezio Ballard, RN - 09/20/2021 8:29 AM EDT Per visit with Taylor Sawant on 09/14/21, Amlodipine was stopped and lasix increased to 80 mg/day documented in this encounter Plan of Treatment Not on file documented as of this encounter Visit Diagnoses Diagnosis Edema of both feet documented in this encounter Additional Health Concerns Infection Onset Date Last Indicated Resolved Time COVID-19 09/29/2021 09/29/2021 10/19/2021 7:19 PM EDT Assessment Noted Time PHQ-9 Depression Total Score: 7 09/15/19 22 10:31 AM EDT documented as of this encounter Care Teams Plastic Fabricator Relationship Specialty Start Date End Date Deep Pruitt APRN PCP - General 05/22/19 documented as of this encounter
--- OUTSIDE RECORDS SUMMARY | 2024-06-03 17:53 | XMS_ITS | Encounter Summary ---
Author Organization [facility] Address [address] [place] [address] Care Team Providers Care Fund Raiser Name Role Phone Deep Pruitt APRN Primary Care Provider Encounter Details Date Type Department Care Team ([facility] st Contact Info) Description 06/21/2022 Scanned Document [facility] [address] [place], [place] [phone] Deep Pruitt APRN [address] [place] [address] Social History Tobacco Use Types [...] often do you attend chur ch or buddhist services? More than 4 times per year 05/19/2022 Do you belong to any clubs o r organizations such as islam groups, unions, fraternal or athletic groups, or [...] Date Recorded PHQ-2 Total Score 2 02/17/2022 [facility] - Occupational Stress Questionnaire Answer Date [...] your living situation today? I have a [facility] place to live 05/19/2022 Sex and Gender Information Value Date Recorded Sex Assigned at Male 12/10/2018 10:49 AM EDT Legal Sex Male 9:30 AM EST Gender Identity Male 12/10/2018 10:49 AM EDT Sexual Orientation Straight 12/10/2018 10 :49 AM EDT COVID-19 Exposure Response Date Recorded In the last 10 days, have wilmer u been in contact with someone who was confirmed or suspected to have Coronavirus/COVID-19? No / Unsure 06/23/2022 1:33 PM EST documented as of this encounter Plan of Treatment Not on file documented as of this encounter Visit Diagnoses Not on filedocumented in this encounter Additional Health Concerns Assessment Noted Time PHQ-9 Depression Total Score: 2 02/18/20 22 4:19 PM EDT documented as of this encounter Care Teams Fund Raiser Relationship Specialty Start Date End Date Deep Pruitt APRN PCP - General 05/22/19 documented as of this encounter
--- OUTSIDE RECORDS SUMMARY | 2024-06-03 17:53 | XMS_ITS | Encounter Summary ---
Author Organization [facility] [employer] [facility] and [facility] Address [address] [place] [phone] Care Team Providers Care Addiction Social Worker Name Role Phone Deep Pruitt APRN Primary Care Provider Encounter Details Date Type Department Care Team (Late st Contact Info) Description 08/05/2021 Orders Only [facility] [address] [place] [address] Carolyn Marin MD [address] [place] [phone] Essential hypertension Social History Tobacco Use Types Packs/Day Years [...] any clubs o r organizations such as restorationism groups, unions, fraternal or athletic groups, or [...] Answer Date Recorded PHQ-2 Total Score 4 07/13/2021 [facility] of Occupat ional [...] have Coronavirus / COVID-19? No / Unsure 08/02/2021 2:07 PM EDT documented as of this encounter Miscellaneous Notes * Result Encounter Note - aRh Walsh MD - 08/05/2021 12:53 PM EDT Blood pressure is poorly controlled throughout the day with an average systolic BP in the 150s. He has previously been referred to outpatient pharmacy BP management, but does not look as though he has established with them yet. Will send him a message to remind him to please establish. documented in this encounter Plan of Treatment Not on file documented as of this encounter Procedures Procedure Name Priority Date/Time Associated Diagnosis Comments 24 HOUR BLOOD PRESSURE MONITOR Routine 08/05/2021 12:54 PM EDT Essential hypertension documented in this encounter Results * 24 Hour Blood Pressure Monitor (08/05/2021 12:54 PM EDT) Anatomical Region Laterality Modality Chest Other us Carolyn Marin MD CV MONITORS ORDERABLES Fauzia l Result documented in this encounter Visit Diagnoses Diagnosis Essential hypertension Unspecified essential hypertension documented in this encounter Additional Health Concerns Infection Onset Date Last Indicated Resolved Time COVID-19 09/29/2021 09/29/2021 10/19/2021 7:19 PM EDT Assessment Noted Time PHQ-9 Depression Total Score: 11 07/13/ 022 2:28 PM EST documented as of this encounter Care Teams Addiction Social Worker Relationship Specialty Start Date End Date Deep Pruitt APRN PCP - General 05/22/19 documented as of this encounter
--- OUTSIDE RECORDS SUMMARY | 2024-06-03 17:53 | XMS_ITS | Encounter Summary ---
Author Organization [facility] Address [address] [place] [address] Care Team Providers Care Low Heel Builder Name Role Phone Romelia Pruittian Niko LOPEZ Primary Care Provider Encounter Details Date Type Department Care Team (Late st Contact Info) Description 09/08/2021 Scanned Document [facility] [address] [place] [address] External, Provider Social History Tobacco Use Types [...] often do you attend chur ch or jainism services? Never 01/03/2020 Do you belong to [...] Date Recorded PHQ-2 Total Score 2 09/08/2021 [facility] of Occupat ional Health - Occupational Stress [...] documented as of this encounter Care Teams Low Heel Builder Relationship Specialty Start Date End Date Deep Pruitt APRN PCP - General 05/22/19 documented as of this encounter
--- OUTSIDE RECORDS SUMMARY | 2024-06-03 17:53 | XMS_ITS | Encounter Summary ---
Author Organization [facility] Address [address] [place] [address] Care Team Providers Care First Press Operator Name Role Phone Romelia Pruittian Niko LOPEZ Primary Care Provider Encounter Details Date Type Department Care Team (Late st Contact Info) Description 09/06/2021 Scanned Document [facility] [address] [place] [address] External, Provider Social History Tobacco Use Types [...] often do you attend chur ch or alevism services? Never 01/03/2020 Do you belong to [...] Date Recorded PHQ-2 Total Score 2 09/08/2021 [facility] of Occupat ional Health - [...] Noted Time PHQ-9 Depression Total Score: 11 022 2:28 PM EST documented as of this encounter Care Teams First Press Operator Relationship Specialty Start Date End Date Deep Pruitt APRN PCP - General 05/22/19 documented as of this encounter
--- OUTSIDE RECORDS SUMMARY | 2024-06-03 17:53 | XMS_ITS | Encounter Summary ---
Author Organization [employer] Address [address] [facility] 7t [place] [address] Care Team Providers Care Fruit Dryer Name Role Phone Katrin Santoyo MD Primary Care Pro vider Edison Vieira MD Unavailable [phone] Joe Devi MD Unavailable [phone] Reason for Visit * Reason Onset Date Comments Nurse Triage 05/30/2024 Encounter Details Date Type Department Care Team (Late st Contact Info) Description 05/30/2024 Telephone [facility] MEDICINE [address] [place], [place] [phone] Katrin Santoyo MD [address] [place], [place] [phone] Nurse Triage Social History Tobacco Use Types Packs/Day Years [...] encounter Miscellaneous Notes * Telephone Encounter - Ronda Suarez RN - 05/31/2024 9:06 AM EST Images from the original note were not included. Call to Darrel Cortes to inform of below from Covering Dr. Antonia Taylor MD [facility] Team [id number] hours ago (4:08 PM) AE Please see note from ronda Suarez RN. Pt should be seen at [facility] for med titration for HTN Call to Darrel Cortes, offered appt today but pt declines states has conflicting appts. Unableto recheck BP during call as patient states just woke up. Pt agrees to seek [facility] tomorrow for eval. Reviewed parameters to call back if BP >140/90. * Telephone Encounter - Ronda Suarez RN - 05/30/2024 11:09 AM EST Call to Darrel Cortes for BP check, spoke with spouse states pt is asleep but [facility]NA did recheck and was a little lower. Spouse rechecked with this journalists and other writers on the line and BP reading of 160/95. Still elevated. Denies pt having any sx of CP, VILLANUEVA or dizziness. Pt unable to come in to [facility] today. Advised will forward to a covering team provider for review and to further advise Green team primary teamwith regards to any changes to BP management , parameters or orders for VNA. Protocol Used: Blood Pressure - High (Adult) Protocol-Based Disposition: See in Office or Video Visit within 2 Weeks Override (Final) Disposition: Discuss with covering Provider and Callback by Nurse Override Reason: Other Override Notes: PCP Out of Office Video visit offer not recorded Positive Triage Question: * Systolic BP >= 130 OR Diastolic >= 80, and is taking BP medications * All higher-acuity triage questions were negative Care Advice Discussed: * High Blood Pressure * High Blood Pressure - Lifestyle Changes * Reasons To Call Back - Headache, blurred vision, difficulty talking, or difficulty walking occurs - Chest pain or difficulty breathing occurs - You become worse * Telephone Encounter - Ronda Suarez RN - 05/30/2024 9:08 AM EST Call returned to Darrel Cortes to triage below. Reports had not yet taken BP meds prior to PT arriving. Per pt BP taken prior to starting PT session. Per pt on a diet for Gastric Sleeve. Pt having some fatigue. Pt checked Bs this AM and fasting 188mg/dL. Pt has already taken BP meds approx 5 mins ago. Pt denies any VILLANUEVA, CP or SOB. Pt offered appt today with Green team provider. Pt declines ashas to take spouse to see General surgeon for suture removal at that time. Reviewed [facility] operating hours and that wait times vary. Pt advised will call back in 2 hours to have pt recheck with BP homekit to see if has improved since taking meds. Reviewed low salt diet, extra water and to return call if sx develop. Protocol Used: Blood Pressure - High (Adult) Protocol-Based Disposition: Discuss with PCP and Callback by Nurse within 1 Hour Video visit offer not recorded Positive Triage Question: * Systolic BP >= 180 OR Diastolic >= 110, and missed most recent dose of blood pressure medication * All higher-acuity triage questions were negative Care Advice Discussed: * High Blood Pressure * Reasons To Call Back - Headache, blurred vision, difficulty talking, or difficulty walking occurs - Chest pain or difficulty breathing occurs - You become worse * Telephone Encounter - Felipa Medina Phillips - 05/30/2024 8:58 AM EST Tc from [facility] Symptom: High Blood Pressure - Caller Reports Reading: Left arm (177/104) Right arm (176/116) Outcome: Schedule a same-day appointment or talk to a nurse or provider today Reason: Caller denied all higher acuity questions The caller accepted this outcome. [phone] ([facility]) documented in this encounter Plan of Treatment Upcoming Encounters Date Type Department Care Team (Late st Contact Info) Description 06/04/2024 11:00 AM EST Office Visit [facility] MEDICINE [address] [place] [phone] documented as of this encounter Goals Goal Patient Goal Type Associated Problems Recent Progress Patient-Stated? Author Blood Pressure < 140/90 Blood Pressure 158/90(2023 10:23 AM EST) No Piers-Gambl e, Eve, PharmD Hemoglobin A1c < 7 Result Component 12.5(03/27/20 3:40 PM EST) No Nemesios-Gambl e Eve, PharmD documented as of this encounter Visit Diagnoses Not on filedocumented in this encounter Additional Health Concerns Assessment Noted Time PHQ-9 Depression Total Score: 4 10/31/19 10:32 AM EDT documented as of this encounter Care Teams Fruit Dryer Relationship Specialty Start Date End Date Katrin Santoyo MD [address] [place] [phone] PCP - General Internal Medicine 12/13/22 Edison Vieira MD [address] [place] [address] Pulmonary Disease 04/07/24 Joe Devi MD [address] 3rd [place] [address] Gastroenterology 04/07/24 Carito Roche DNP [address], [address] [place] [address] Nephrology 04/07/24 [employer] 04/11/24 documented as of this encounter
--- OUTSIDE RECORDS SUMMARY | 2024-06-03 17:53 | XMS_ITS | Encounter Summary ---
Author Organization [facility] Address [address] [place] [address] Care Team Providers Care Solar Photovoltaic Crew Lead Name Role Phone Deep Pruitt APRN Primary Care Provider [phone] Reason for Visit * Reason Comments Medication Refill Encounter Details Date Type Department Care Team ([facility] st Contact Info) Description 09/17/2020 Refill [facility] [address] [place] [address] Deep Pruitt APRN [address] [place] [phone] Medication Refill Social History Tobacco Use [...] Answer Date Recorded PHQ-2 Score 2 07/07/2020 [facility] of Occupat ional [facility] - Occupational Stress Questionnaire Answer Date Recorded [...] have Coronavirus / COVID-19? No / Unsure 09/15/2020 9:50 AM EDT documented as of this encounter [...] Noted Time PHQ-9 Depression Total Score: 2 09/10/19 21 1:31 PM EDT documented as of this encounter Care Teams Solar Photovoltaic Crew Lead Relationship Specialty Start Date End Date Deep Pruitt APRN PCP - General 05/22/19 documented as of this encounter
--- OUTSIDE RECORDS SUMMARY | 2024-06-03 17:53 | XMS_ITS | Clinical Summary ---
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 nebulizer accessories MiscIndications: Asthma exacerbation, mild Use as directed.Asthma exacerbation, mild J45.901 Please deliver to Pt house 1 each 5 09/24/19 20 Active walker MiscIndications: Gait instability Pt has been c/o low back pain and can currently only walk one block and then has to rest, weighs 270 lbs, has diabetic Neuropathy and the Pt is asking for a foldable Rolator walker with hand brakes, seat with basket underneath for her persistent UNSTEADY GAIT R26.81 1 each 01/30/20 20 Active ciclopirox/terbi nafine/oxiconazo le/nystatin: 0.77-1-1%-100,00 0 units/gm topical (compound) APPLY topically TWICE DAILY TO THE FOURTH interspace OF BOTH FEET FOR FOUR WEEKS (Call pharmacy FOR refills) 60 g 2 07/21/19 21 Active compressor, for nebulizer DeviIndications: Asthma exacerbation, mild Use every 4-6 hours as directed for his Asthma exacerbation, Please deliver to Pt saeedPt has had Asthma all his life and feels it is worsening due to seasonal allergies and he needs a new nebulizer, the old one was lost, For the past three day the Pt has not had access to his nebulizer and his asthma is worse Asthma exacerbation, mild Code: J45.901, duration 99 1 Device 11/15/19 21 Active HARD TO ENTER MEDICATION Apply to feet up to four times daily as needed for symptoms of burning/electrici ty (Call pharmacy for refills) 08/03/19 22 Active Miscellaneous Medical SupplyIndication s:Edema of both feet Pt continues to deal with bilateral lower extremity edema will order Compression sleeves today from [facility] today, Put on lower legs during the day and take off at night, and wash and let dry and put on 2nd pair on the following day for Edema, lower extremity R60.0 2 each 1 09/09/19 22 Active HARD TO ENTER MEDICATION Apply to feet up to four times daily as needed for symptoms of burning/electrici ty (Call pharmacy for refills) 08/26/19 22 Active blood pressure monitor KitIndications:E ssential hypertension by Other route 2 (two) times daily (0800, 1800). Use as directed to monitor blood pressure. 1 each 11/20/19 22 Active ketamine/doxepin /nifedipine/pent oxifylline: 10-5-8-8% topical (compound)Indica tions:Diabetic foot (HC Code) (HC CODE) (HC Code) Apply to feet up to four times daily as needed for symptoms of burning/electrici ty (Call pharmacy for refills) 60 g 5 12/04/19 22 Active ONETOUCH VERIO FLEX METER deviceIndication s:Type 2 diabetes mellitus with diabetic neuropathy, with long-term current use of insulin (HC Code) 4 x per day. For Type 2 diabetes mellitus with neurologic complication, with long-term current use of insulin E11.49, Z79.4, Duration 99 1 each 01/06/20 22 Active ziprasidone (GEODON) 80 mg capsuleIndicatio ns:Schizoaffecti ve disorder, depressive type (HC Code) (HC CODE) (HC Code) Take 1 capsule (80 mg total) by mouth daily with dinner. 30 capsule 3 03/21/20 22 Active ziprasidone (GEODON) 40 mg capsule Take 1 capsule (40 mg total) by mouth every morning. Take with food 30 capsule 3 03/21/20 Active traZODone (DESYREL) 150 mg tablet Take a full tab PO nightly 30 tablet 3 03/21/20 22 Active DULoxetine (CYMBALTA) 60 mg capsuleIndicatio ns:Schizoaffecti ve disorder, depressive type (HC Code) (HC CODE) (HC Code) Take 1 capsule (60 mg total) by mouth 2 (two) times daily. 60 capsule 3 03/21/20 22 Active flash glucose (FREESTYLE ORTEGA 2 READER) scanning reader Use as directed to monitor blood sugar. E11.65, Z79.4 1 each 04/21/20 Active flash glucose (FREESTYLE ORTEGA 2 SENSOR) sensor kit Place 1 sensor on back of arm. Replace every 14 days. 6 kit 3 04/21/20 22 Active traMADoL (ULTRAM) 50 mg tabletIndication s:Bilateral hip joint arthritis Take 1 tablet (50 mg total) by mouth every 8 (eight) hours as needed. 270 tablet 06/23/19 23 Active spironolactone (ALDACTONE) 25 mg tabletIndication s:Edema of both feet Take 1 tablet (25 mg total) by mouth daily. 90 tablet 06/23/19 23 Active polyethylene glycol (HEALTHYLAX) 17 gram packetIndication s:Other constipation Take 1 packet (17 g total) by mouth 2 (two) times daily. Mix in 8 ounces of water, juice, soda, coffee or tea prior to taking. 180 each 06/23/19 23 Active pantoprazole (PROTONIX) 40 mg tabletIndication s:Gastroesophage al reflux disease without esophagitis Take 1 tablet (40 mg total) by mouth daily. 90 tablet 06/23/19 23 Active lancets (ONETOUCH DELICA PLUS LANCET) 30 gauge Misc lancetsIndicatio ns:Type 2 diabetes mellitus with diabetic neuropathy, with long-term current use of insulin (HC Code) Inject 1 each as directed 4 (four) times daily with meals and nightly. 360 each 06/23/19 23 Active nutritional therapy (GLUCERNA SHAKE) oral liquidIndication s:Type 2 diabetes mellitus with diabetic neuropathy, with long-term current use of insulin (HC Code) Take 237 mLs by mouth 3 (Three) times daily after meals with Post-Prandial Finger Stick. Feeding difficulties R63.3 and Type 2 diabetes mellitus with neurologic complication, with long-term current use of insulin, Duration 99, Feeding difficulty R63.30 29036 mL 06/23/19 Active metFORMIN (GLUCOPHAGE) 1000 mg tabletIndication s:Type 2 diabetes mellitus with diabetic neuropathy, with long-term current use of insulin (HC Code) Take 1 tablet (1,000 mg total) by mouth 2 (two) times daily with breakfast and dinner. 180 tablet 06/23/19 Active losartan (COZAAR) 50 mg tabletIndication s:Essential hypertension Take 1 tablet (50 mg total) by mouth daily. 90 tablet 06/23/19 Active lidocaine (LIDODERM) 5 %Indications:Kaity ropathy due to type 2 diabetes mellitus (HC Code) (HC CODE) (HC Code) Place 1 patch onto the skin every 24 hours. Remove & Discard patch within 12 hours or as directed by 90 patch 06/23/19 Active insulin regular human CONCENTRATED 500 units/mL (HUMULIN R U-500, CONC, KWIKPEN) injection penIndications:T ype 2 diabetes mellitus with diabetic neuropathy, with long-term current use of insulin (HC Code) Inject 190 Units under the skin 2 (two) times daily before breakfast and dinner. Inject 190 units before breakfast and 190 units before dinner for Type 2 diabetes mellitus with neurologic complication, with long-term current use of insulin E11.49, Z79.4 Duration 99 69 mL 06/23/19 Active TRUEPLUS PEN NEEDLE 32 gauge x 5/32 Indications :Type 2 diabetes mellitus with diabetic neuropathy, with long-term current use of insulin (HC Code) Inject under the skin 4 (four) times daily with meals and nightly. Use with insulin pen. 360 each 06/23/19 Active insulin aspart (NOVOLOG) 100 unit/mL (3 mL) penIndications:T ype 2 diabetes mellitus with diabetic neuropathy, with long-term current use of insulin (HC Code) Inject 30 Units under the skin 3 (three) times daily before meals. Inject SQ Novolog 30 before meals + supplementary sliding scale 150-199-->4u, 200-249-->6u, 250-299-->8u, 300-349-->10u, >350-->12u Max daily dose 141 units/day for Type 2 diabetes mellitus with neurologic complication, with long-term current use of insulin E11.49, Z79.4 Duration 99 81 mL 06/23/19 23 Active gabapentin (NEURONTIN) 800 mg tabletIndication s:Type 2 diabetes mellitus with diabetic neuropathy, with long-term current use of insulin (HC Code) Take 1 tablet (800 mg total) by mouth 2 (two) times daily with breakfast and dinner. 180 tablet 06/23/19 23 Active fluticasone propion-salmeter oL (ADVAIR HFA) 230-21 mcg/actuation inhalerIndicatio ns:Asthma exacerbation, mild Inhale 2 puffs into the lungs 2 (two) times daily. After use, rinse mouth with water. 36 g 06/23/19 23 Active fluticasone propionate (FLONASE) 50 mcg/actuation nasal sprayIndications :Asthma exacerbation, mild Use 2 sprays in each nostril daily. 48 g 06/23/19 23 Active ezetimibe (ZETIA) 10 mg tabletIndication s:Hyperlipidemia associated with type 2 diabetes mellitus (HC Code) Take 1 tablet (10 mg total) by mouth daily. 90 tablet 06/23/19 23 Active ergocalciferol (VITAMIN D2) 1,250 mcg (50,000 unit) capsuleIndicatio ns:Vitamin D deficiency Take 1 capsule (50,000 Units total) by mouth once a week. 13 capsule 06/23/19 23 Active empagliflozin (JARDIANCE) 25 mg tabletIndication s:Type 2 diabetes mellitus with diabetic neuropathy, with long-term current use of insulin (HC Code) Take 1 tablet (25 mg total) by mouth daily. 90 tablet 06/24/19 23 Active chlorhexidine gluconate (PERIDEX) 0.12 % solutionIndicati ons:Medication refill Swish and spit 15 mLs 2 (two) times daily. 2700 mL 06/24/19 23 Active carvediloL (COREG) 25 mg Immediate Release tabletIndication s:Essential hypertension Take 1 tablet (25 mg total) by mouth 2 (two) times daily with breakfast and dinner. 180 tablet 06/24/19 23 Active bisacodyL (GENTLE LAXATIVE, BISACODYL,) 5 mg EC tabletIndication s:Other constipation Take 2 tablets (10 mg total) by mouth 2 (two) times daily as needed for constipation. 180 tablet 06/24/19 23 Active atorvastatin (LIPITOR) 80 mg tabletIndication s:Hyperlipidemia associated with type 2 diabetes mellitus (HC Code) Take 1 tablet (80 mg total) by mouth daily. 90 tablet 06/24/19 23 Active aspirin 81 mg chewable tabletIndication s:Essential hypertension, benign Take 1 tablet (81 mg total) by mouth daily. 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 90 tablet 06/24/19 23 Active alcohol swabs (ALCOHOL PREP PADS) PadMIndications: Type 2 diabetes mellitus with diabetic neuropathy, with long-term current use of insulin (HC Code) Apply 1 each topically 4 (four) times daily with meals and nightly. 400 each 06/24/19 23 Active albuterol sulfate 90 mcg/actuation HFA aerosol inhalerIndicatio ns:Moderate persistent asthma without complication Inhale 2 puffs into the lungs every 4 (four) hours as needed for wheezing. 54 g 11 06/24/19 23 Active tiotropium bromide (SPIRIVA RESPIMAT) 1.25 mcg/actuation mist for inhalationIndica tions:Moderate persistent asthma without complication Inhale 2 puffs into the lungs daily. 12 g 06/24/19 23 Active diclofenac (VOLTAREN) 1 % gelIndications:L ow back pain due to bilateral sciatica Apply 4grams to top and bottom of left forefoot up to four times daily prn pain 100 g 3 06/24/19 23 Active dulaglutide (TRULICITY) 4.5 mg/0.5 mL PnIjIndications: Type 2 diabetes mellitus with diabetic neuropathy, with long-term current use of insulin (HC Code) Inject 0.5 mLs (4.5 mg total) under the skin every 7 days. 6.5 mL 06/24/19 23 Active furosemide (LASIX) 80 mg tabletIndication s:Edema of both feet Take 1 tablet (80 mg total) by mouth 2 (two) times daily. 180 tablet 06/24/19 23 Active triamcinolone (KENALOG) 0.1 % pasteIndications :Medication refill Place onto teeth 2 (two) times daily. 5 g 12 06/24/19 Active blood sugar diagnostic (ONETOUCH VERIO) test stripsIndication s:Type 2 diabetes mellitus with diabetic neuropathy, with long-term current use of insulin (HC Code) 1 strip by Other route 4 (four) times daily with meals and nightly. Check glucose QID for E11.65 360 each 06/24/19 23 Active Active Problems Problem Noted Date Diagnosed Date Pain of left calf 06/10/2022 Assessment & Plan (06/10/2022 4:54 PM EST): 05/16/2022 US DUPLEX LOWER EXTREMITY VENOUS LEFT [...] IMPRESSION: No evidence of deep venous thrombosis. Leg pain, posterior, left 05/20/2022 Overview (05/20/2022): L calf pain, states it started 1 week ago and was red. Tender to palpation, Homans test negative. Could be MSK but small welt palpable. - US to rule out DVT Assessment & Plan (05/21/2022 5:13 AM EST): -The Pt c/o left calf pain that [...] and f/u with Pt in a month Ingrown right greater toenail 04/21/2022 Assessment & Plan (04/22/2022 8:23 AM EST): -For the past 3 week the Pt [...] AM with Arben Fountain DPM at the [facility] -Will f/u with Pt in a month to check on effectiveness of medications Need for vaccination 03/26/2022 Kidney pain 02/17/2022 Assessment & Plan (06/10/2022 4:51 PM EST): 06/01/2022 US RENAL. HISTORY: r/o kidney stone. [...] IMPRESSION: No sonographic evidence for renal calculi. Assessment & Plan (03/26/2022 5:27 AM EST): -Kidney pain unchanged from prior appointment -The Pt Renal US is scheduled on 04/26/2022 -Pt was informed that if he needs a sooner appointment and was informed he can call [phone] to find a closer time Assessment & Plan (02/19/2022 1:59 PM EDT): -The Pt went to his [employer] and was c/o right kidney pain for the last 1 month -The Pt denies urinary hesitancy or any blood in his urine but has intermittent Kidney pain 3 out of 10 -Pt c/o increased bilateral kidney pain 12/15 especially when walking long distance COVID-19 09/29/2021 Assessment & Plan (10/11/2021 4:59 PM EDT): September 27, 2021 The Pt had a positive home test and continues to be symptomatic with SOB with exertion and intermittent diarrhea, Pt will continue to monitor his symptoms and was informed if at a time the Pt is SOB at rest then the Pt needs to go to the ED [facility] will continue to monitor Assessment & Plan (09/29/2021 2:28 PM EDT): - patient had home test positive September 27 - patient is currently taking inhalers for asthma, continues to feel wheezy, symptoms worse at night - pathway utilized through [facility] [employer], patient eligible for molnupiravir, may benefit from prednisone burst as well - patient encouraged to take advil/tylenol for comfort, rest, drink plenty of fluids - patient informed to please go to ED if he finds that his breathing becomes worse, despite steroid use, difficulty completing sentences or increased work of breathing - patient in agreement with plan - follow-up 1 week Acquired hypothyroidism 09/12/2021 Assessment & Plan (09/12/2021 12:13 PM EDT): Will continue to monitor the Pt's TSH levels Results for DARREL BHARDWAJ ( ) as of 09/12/2021 12:10 Ref. Range 09/09/2021 Thyroid Stimulating Hormone, 3rd Gen. Latest Ref Range: See Comment ??IU/mL 3.640 Lymph nodes enlarged 04/09/2021 Assessment & Plan (04/09/2021 9:05 AM EST): Recent CT of Chest showed in the [...] followed up in 3-6 months. Fatty liver. Hepatic steatosis 04/05/2021 Overview (04/05/2021): - noted on CT Abdomen 03/30 - Last liver functions within normal limits Assessment & Plan (04/09/2021 9:02 AM EST): Will continue to monitor Results for DARREL BHARDWAJ ( ) as of 04/09/2021 08:44 Ref. Range 03/12/2020 01/07/2021 01/25/2021 Alkaline Phosphatase Latest Ref Range: 35 - 144 U/L 104 107 116 ALT (SGPT) Latest Ref Range: 9 - 46 U/L 55 (H) 30 31 AST Latest Ref Range: 10 - 35 U/L 28 16 19 Albumin Latest Ref Range: 3.6 - 5.1 g/dL 4.4 3.8 4.0 Globulin Latest Ref Range: 1.9 - 3.7 g/dL (calc) 3.3 3.0 3.0 Albumin/Globulin Ratio Latest Ref Range: 1.0 - 2.5 (calc) 1.3 1.3 1.3 Lipase Latest Ref Range: 7 - 60 U/L 228 (H) 03/30/2021 CT ABDOMEN W WO IV CONTRAST HISTORY: LUQ abdominal pain, elevated lipase Liver: Diffuse steatosis. Gallbladder and bile ducts: There are gallstones in the gallbladder with no evidence of acute cholecystitis. Pancreas: Unremarkable. Spleen: Unremarkable. Adrenal glands: Unremarkable. Kidneys: Unremarkable. GI tract: No evidence of bowel obstruction. No evidence of appendicitis. Lymph nodes: No lymphadenopathy. Peritoneum: No ascites. No free intraperitoneal gas. Soft tissues: Unremarkable. Skeletal: No destructive bone lesions. IMPRESSION: 1. Hepatic steatosis, 2. Gallstones in the gallbladder with no evidence of acute cholecystitis. Assessment & Plan (04/05/2021 11:36 AM EST): - continue to monitor LFT's Elevated parathyroid hormone 01/08/2021 Assessment & Plan (01/08/2021 1:28 PM EDT): Results for DARREL BHARDWAJ ( ) as of 01/08/2021 13:09 Ref. Range 02/06/2020 03/12/2020 01/07/2021 Parathyroid Hormone, Intact Latest Ref Range: 14 - 64 pg/mL 64.2 74 (H) 74 (H) Results for DARREL BHARDWAJ ( ) as of 01/08/2021 13:09 Ref. Range 09/16/2019 02/07/2020 01/07/2021 Calcium Latest Ref Range: 8.6 - 10.3 mg/dL 10.6 (H) 10.2 10.0 Vitamin D deficiency 01/08/2021 Assessment & Plan (01/08/2021 1:34 PM EDT): The Pt needs to start a Vit D supplement Results for DARREL BHARDWAJ ( ) as of 01/08/2021 13:09 Ref. Range 01/07/2021 Vitamin D, 25 OH, Total Latest Ref Range: 30 - 100 ng/mL 11 (L) CCM: 15 minutes 01/08/2021 Deep Pruitt APRN Ventral hernia 05/28/2020 Assessment & Plan (05/28/2020 2:55 PM EST): For the last few days the Pt has a tennis ball size protrusion to comes out below his left rib cage when he tries to have a bowel movement, the pt has to push this area in to be able to have a comfortable bowel movement, will continue to to monitor Hypersegmentation of eosinophils 04/03/2020 Assessment & Plan (11/18/2020 3:16 PM EDT): Need to assess if Pt continue to [...] in CBC parameters or other clinical concerns. Assessment & Plan (11/14/2020 12:02 PM EDT): Need to assess if Pt continue to experience Hypersegmentation of eosinophils, maybe Asthma related unsure if not then send Pt to Hematology 04/14/2020 Juan Chino MD to Deep Pruitt [...] 0 - 1,000 (whereas the level in [place] had a range of 0-500 as normal). Either way, the patient's underlying medical conditions (CKD and diabetes) may lead to inflammation and elevated WBC and eosinophil count. 4. Contingency plan: May continue to monitor blood counts and refer to hematology if significant increase in CBC parameters or other clinical concerns. Assessment & Plan (04/11/2020 5:24 AM EST): Hypersegmentation of eosinophils with??Pt with Gout due to uncontrolled Diabetes and damage to kidneys, Had consulted??Dr Tong ID Specialist ??in regards to Pt having elevated Eosinophils, [facility] Comment: Suggestive of acute inflammation pattern with elevation of acute phase proteins and Dr Tong recommended for the Pt to get additional labs SPEP panel to determine the reason and and send results as an e-consult to Hematology [facility] Interpretation ? Comment: Suggestive of acute inflammation pattern with elevation of acute phase proteins ?? Results for DARREL BHARDWAJ ( ) as of 04/10/2020 15:12 ?? Ref. Range 04/07/2020 SPEP Interpretation Unknown ?? [id number]-[id number] Latest Ref Range: 0.2 - 0.3 g/dL 0.3 Ddhwc-[id number] Latest Ref Range: 0.5 - 0.9 g/dL 1.1 (H) Interpretation Unknown Comment Only Abnormal Protein Band 2 Latest Ref Range: NONE DETECTED g/dL CANCELED Abnormal Protein Band 3 Latest Ref Range: NONE DETECTED g/dL CANCELED Qjjl-6-Snyajscf Latest Ref Range: 0.4 - 0.6 g/dL 0.5 Xpoa-3-Wgfeeohg Latest Ref Range: 0.2 - 0.5 g/dL 0.5 Gamma Globulin Latest Ref Range: 0.8 - 1.7 g/dL 1.1 Abnormal Protein Band 1 Latest Ref Range: NONE DETECTED g/dL CANCELED Protein, Total Latest Ref Range: 6.1 - 8.1 g/dL 7.1 Albumin Latest Ref Range: 3.8 - 4.8 g/dL 3.6 (L) ?? Results for DARREL BHARDWAJ ( ) as of 04/08/2020 17:50 ?? Ref. Range 04/07/2020 Free [place] Latest Ref Range: 3.3 - 19.4 mg/L 35.9 (H) Free Lambda Latest Ref Range: 5.7 - 26.3 mg/L 26.6 (H) Free [place]/Lambda Ratio Latest Ref Range: 0.26 - 1.65 1.35 ?? Results for DARREL BHARDWAJ ( ) as of 04/03/2020 12:10 ?? Ref. Range 02/06/2020 03/12/2020 Neutrophils Absolute Latest Ref Range: 1,500 - 7,800 cells/uL ?? 9,116 (H) ANC (Absolute Neutrophil Count) Latest Ref Range: 0 - 750 cells/uL ?? CANCELED Lymphocytes Absolute Latest Ref Range: 850 - 3,900 cells/uL ?? 3,081 Absolute Lymphocyte Count Latest Ref Range: 1.0 - 4.0 x 1000/??L 2.4 ?? Monocytes (Absolute) Latest Ref Range: 200 - 950 cells/uL 1.4 1,278 (H) Eosinophil Absolute Count Latest Ref Range: 0.0 - 1.0 x 1000/??L 0.7 ?? Eosinophils Absolute Latest Ref Range: 15 - 500 cells/uL ?? 653 (H) ? Gout due to renal impairment Results for DARREL BHARDWAJ ( ) as of 04/10/2020 15:12 ?? Ref. Range 04/07/2020 11:04 Uric Acid Latest Ref Range: 4.0 - 8.0 mg/dL 8.3 (H) Assessment & Plan (04/10/2020 3:23 PM EST): Had consulted Dr Tong in regards to Pt having elevated Eosinophils and she had recommended for the the Pt to get additional labs SPEP panel to determine the reason [facility] Interpretation Comment: Suggestive of acute inflammation pattern with elevation of acute phase proteins Results for DARREL BHARDWAJ ( ) as of 04/10/2020 15:12 Ref. Range 04/07/2020 SPEP Interpretation Unknown Lrscv-5-Vuubbvib Latest Ref Range: 0.2 - 0.3 g/dL 0.3 Hqcmr-7-Mhfjohps Latest Ref Range: 0.5 - 0.9 g/dL 1.1 (H) Interpretation Unknown Comment Only Abnormal Protein Band 2 Latest Ref Range: NONE DETECTED g/dL CANCELED Abnormal Protein Band 3 Latest Ref Range: NONE DETECTED g/dL CANCELED Sfrf-8-Hmzgtrwq Latest Ref Range: 0.4 - 0.6 g/dL 0.5 Mbdt-0-Nagzklwr Latest Ref Range: 0.2 - 0.5 g/dL 0.5 Gamma Globulin Latest Ref Range: 0.8 - 1.7 g/dL 1.1 Abnormal Protein Band 1 Latest Ref Range: NONE DETECTED g/dL CANCELED Protein, Total Latest Ref Range: 6.1 - 8.1 g/dL 7.1 Albumin Latest Ref Range: 3.8 - 4.8 g/dL 3.6 (L) Results for DARREL BHARDWAJ ( ) as of 04/08/2020 17:50 ?? Ref. Range 04/07/2020 Free [place] Latest Ref Range: 3.3 - 19.4 mg/L 35.9 (H) Free Lambda Latest Ref Range: 5.7 - 26.3 mg/L 26.6 (H) Free [place]/Lambda Ratio Latest Ref Range: 0.26 - 1.65 1.35 ?? Results for DARREL BHARDWAJ ( ) as of 04/03/2020 12:10 ?? Ref. Range 02/06/2020 03/12/2020 Neutrophils Absolute Latest Ref Range: 1,500 - 7,800 cells/uL ?? 9,116 (H) ANC (Absolute Neutrophil Count) Latest Ref Range: 0 - 750 cells/uL ?? CANCELED Lymphocytes Absolute Latest Ref Range: 850 - 3,900 cells/uL ?? 3,081 Absolute Lymphocyte Count Latest Ref Range: 1.0 - 4.0 x 1000/??L 2.4 ?? Monocytes (Absolute) Latest Ref Range: 200 - 950 cells/uL 1.4 1,278 (H) Eosinophil Absolute Count Latest Ref Range: 0.0 - 1.0 x 1000/??L 0.7 ?? Eosinophils Absolute Latest Ref Range: 15 - 500 cells/uL ?? 653 (H) Assessment & Plan (04/08/2020 5:59 PM EST): -Had consulted Dr Tong in regards to Pt having elevated Eosinophils and she had recommended for the the Pt to get additional labs SPEP panel to determine the reason Results for DARREL BHARDWAJ ( ) as of 04/03/2020 12:10 ?? Ref. Range 02/06/2020 03/12/2020 Neutrophils Absolute Latest Ref Range: 1,500 - 7,800 cells/uL ?? 9,116 (H) Lymphocytes Absolute Latest Ref Range: 850 - 3,900 cells/uL ?? 3,081 Monocytes (Absolute) Latest Ref Range: 200 - 950 cells/uL 1.4 1,278 (H) Eosinophils Absolute Latest Ref Range: 15 - 500 cells/uL ?? 653 (H) Still waiting on additional SPEP panel labs to be processed Results for DARREL BHARDWAJ ( ) as of 04/08/2020 17:50 Ref. Range 04/07/2020 Free [place] Latest Ref Range: 3.3 - 19.4 mg/L 35.9 (H) Free Lambda Latest Ref Range: 5.7 - 26.3 mg/L 26.6 (H) Free [place]/Lambda Ratio Latest Ref Range: 0.26 - 1.65 1.35 Assessment & Plan (04/03/2020 12:12 PM EST): Dr Tong had recommended for the the Pt to get additional labs SPEP panel to determine the reason for his elevated Eosinophils Please call to get additional labs completed before his next appointment on Apr 08 Results for DARREL BHARDWAJ ( ) as of 04/03/2020 12:10 Ref. Range 02/06/2020 03/12/2020 Neutrophils Absolute Latest Ref Range: 1,500 - 7,800 cells/uL 9,116 (H) ANC (Absolute Neutrophil Count) Latest Ref Range: 0 - 750 cells/uL CANCELED Lymphocytes Absolute Latest Ref Range: 850 - 3,900 cells/uL 3,081 Absolute Lymphocyte Count Latest Ref Range: 1.0 - 4.0 x 1000/??L 2.4 Monocytes (Absolute) Latest Ref Range: 200 - 950 cells/uL 1.4 1,278 (H) Eosinophil Absolute Count Latest Ref Range: 0.0 - 1.0 x 1000/??L 0.7 Eosinophils Absolute Latest Ref Range: 15 - 500 cells/uL 653 (H) Neuropathy due to type 2 bernabe betes mellitus (HC Code) (HC CODE) 02/14/2020 Assessment & Plan (03/26/2022 5:26 AM EST): -Pt continues to deal with bilateral Neuropathy of feet that Pt feels has gotten worse, particularly in the toes -Pt is currently taking gabapentin 800 mg BID & Cymbalta 60 mg BID -As Pt loses weight, decreases his insulin usage, use better food proportions her feet should decrease Assessment & Plan (04/08/2020 6:05 PM EST): 02/19/2020 was the Pt last Podiatry appointment: Integument: ??Nails thickened bilateral.?Incurvated right hallux nail plate medial and lateral. No evidence of wounds. ??No evidence of infection such as erythema, heat, drainage, or lymphangitis. ??4th interspaces bilateral show maceration, scaling, no signs of bacteria cellulitic infection however. Vascular: ??Dorsalis pedis and posterior tibial pulses are palpable bilaterally. ??Capillary refill time is brisk and less than 3 seconds to digits bilaterally. ??Temperature gradients are within normal limit. ??Pedal hair growth present. ??Skin turgor within normal limits. ??Mild edema bilateral Musculoskeletal: ??Muscle power is 5/5 to lower extremity muscle groups. ??5th digit bilateral cocked up and hammered at pipj. ??Left 1st MTP reduction in range of motion with pain to dorsiflexion and plantarflexion, pain to palpation Neurological: 10g nylon semmes brianna monofilament exam reveals sensation to 0/10 locations on the plantar feet. ??Vibratory examination with 128hz turning fork reveals absent??proprioception to the 1st??metatarsal phalangeal joint. ??Sharp/Dull sensation is absent. Assessment & Plan (02/14/2020 5:23 PM EDT): Patient called and stated he's a diabetic and was advised to speak with his pcp Deep if anything was wrong. He stated he woke up with a small cut in right foot on the small toe. I did offer the CC but stated he would like to speak with his pcp first [phone] Phone Conversation with Pt over the phone: PCP called macedonian speaking (uncontrolled diabetic) Pt over the phone, the Pt woke up this morning noticing that he had a crack with some scaling (Athletes foot) between his 4th and 5th toe on his right foot that had some discomfort to the area, the Pt denied any inflammation or sign of infection or any discharge, will order an antifungal cream to apply to area twice a day and schedule a referral with Podiatry KASHMIR, spent 10 mins talking with Pt Just looked at Vascular note from Vascular appointment that he had today Darrel Bhardwaj is a 49 y.o patient with a PMH of HTN, HEL, 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 His bilateral LE edema was likely iso volume overload which had improved to patients baseline following increase diuresis. His physical examination is reassuring for vascular sufficiency and his now resolved edema is unlikely to have been vascular in origin. Cotton was applied between 3/4 th and 4/5th toes to promote ulceration healing. The patient was instructed to perform daily cotton dressing changes as well as foot inspections and educated to the need for podiatric follow up. Results for DARREL BHARDWAJ ( ) as of 02/14/2020 17:05 Ref. 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 Limit serving sizes of beef, del angel and pork. -Seafood: anchovies, shellfish, sardines and tuna -High-purine vegetables: such as asparagus, spinach -Alcohol. Beer, distilled liquors, moderate amount of wine is good -Sugary foods and beverages, sweetened cereals, bakery goods, candies. Limit consumption of naturally sweet fruit juices. Best Foods for a Gout Diet Low-fat and nondairy fat products, such as yogurt and skim milk. Fresh fruits and vegetables. Nuts, peanut butter, and grains. Fat and oil. Potatoes, rice, bread, and pasta. Eggs (in moderation) Meats like fish, chicken, and red meat are fine in moderation (around 4 to 6 ounces per day). Results for DARREL BHARDWAJ ( ) as of 07/18/2020 04:04 Ref. Range 02/04/2020 04/07/2020 Uric Acid Latest Ref Range: 4.0 - 8.0 mg/dL 10.0 (H) 8.3 (H) Assessment & Plan (06/24/2022 9:17 AM EST): -The Pt is requesting refill of allopurinol (ZYLOPRIM) 100 mg tablet Take 1 tablet PO QD -Will ask Pt to get additional labs to verify uric acid levels 3 months -Nurse will check his Uric Acid level at the Pt next NV visit and am expecting to add allopurinol (ZYLOPRIM) 100 mg tablet Take 1 tablet PO QD with Vit C 1000 mg a day to help in the elimination of Uric Acid ?? Results for DARREL BHARDWAJ ( ) as of 01/22/2021 13:08 ?? Ref. Range 04/07/2020 01/07/2021 Uric Acid Latest Ref Range: 4.0 - 8.0 mg/dL 8.3 (H) 7.0 Assessment & Plan (05/31/2021 1:54 PM EST): Since being in CC the Swelling has come down and there was no issues of Cellulitis of his bilateral extremities, the Pt continues to wear his compression stocking on a regular basis 05/13/2021 CC Note: Extremities: there is 2-3+ pitting edema, at least up to his knees. Both legs and feet are darker in complexion than the rest of his body. His legs and feet are cool to touch. There is 2+ DP pulses on both feet. There are no ulcers, skin tear or weeping lesions, or rahses. Skin is moist. Calves are non-tender to palpation Assessment: Patient is a 50 y.o. male ( male) presenting for b/l LE neuropathy exacerbated by worsening edema iso poor dietary indiscretion Plan: Neuropathy. Unlikely to be cellulitis, VTE, gout (has hx of gout) - Provided reassurance that this is not cellulitis - instructed to restrict salt in his diet and eat fresh food - take lasix and gabapentin as instructed - monitor weight daily. Contact PCP or kidney doctor if there are large fluctuations in weight (3+ibs/24-48hrs) - Maintain good adherence with compression stockings - Raise feet above the heart when resting - follow up with PCP Assessment & Plan (01/22/2021 1:16 PM EDT): -The Pt is requesting refill of allopurinol (ZYLOPRIM) 100 mg tablet Take 1 tablet PO QD -Will ask Pt to get additional labs to verify uric acid levels 3 months -Nurse will check his Uric Acid level at the Pt next NV visit and am expecting to add allopurinol (ZYLOPRIM) 100 mg tablet Take 1 tablet PO QD with Vit C 1000 mg a day to help in the elimination of Uric Acid Results for DARREL BHARDWAJ ( ) as of 01/22/2021 13:08 Ref. Range 04/07/2020 01/07/2021 Uric Acid Latest Ref Range: 4.0 - 8.0 mg/dL 8.3 (H) 7.0 Assessment & Plan (01/08/2021 1:17 PM EDT): Pt's uric acid levels are WNL Results for DARREL BHARDWAJ ( ) as of 01/08/2021 13:09 Ref. Range 04/07/2020 01/07/2021 Uric Acid Latest Ref Range: 4.0 - 8.0 mg/dL 8.3 (H) 7.0 Assessment & Plan (07/18/2020 4:50 AM EST): -The Pt is requesting refill of allopurinol (ZYLOPRIM) 50 mg tablet Take 1 tablet PO QD -Pt will be asked to get additional labs to verify increase in uric acid levels since running out of his Allopurinol 50 mg PO QD -Nurse will check his Uric Acid level at the Pt next NV visit and am expecting to add allopurinol (ZYLOPRIM) 100 mg tablet Take 1 tablet PO QD with Vit C 1000 mg a day to help in the elimination of Uric Acid to Pt med regiment Foods that cause Gout -Organ and glandular meats -Red meat. Limit serving sizes of beef, del angel and pork. -Seafood: anchovies, shellfish, sardines and tuna -High-purine vegetables: such as asparagus, spinach -Alcohol. Beer, distilled liquors, moderate amount of wine is good -Sugary foods and beverages, sweetened cereals, bakery goods, candies. Limit consumption of naturally sweet fruit juices. Best Foods for a Gout Diet Low-fat and nondairy fat products, such as yogurt and skim milk. Fresh fruits and vegetables. Nuts, peanut butter, and grains. Fat and oil. Potatoes, rice, bread, and pasta. Eggs (in moderation) Meats like fish, chicken, and red meat are fine in moderation (around 4 to 6 ounces per day). Results for DARREL BHARDWAJ ( ) as of 07/18/2020 04:04 Ref. Range 02/04/2020 04/07/2020 Uric Acid Latest Ref Range: 4.0 - 8.0 mg/dL 10.0 (H) 8.3 (H) Assessment & Plan (05/24/2020 5:45 PM EST): Images from the original note were not included. Tried to call the Pt using the Fijian Interpretor [id number], V/M was not set up so a voice message was not able to be given to the Pt, Will try at another time to call Pt and let him know to stop taking the Allopurino 50 mg PO QD and order Prednisone 30 mg x 5 days and resume Lasix 40 mg PO QD then reassess Pt in 5 days Carlos Eduardo Joyner MD Gallant, Brian S, APRN; Taylor Malagon APRN -If taking for more than 4 weeks, can increase to 100 mg daily. Recheck uric acid in 4 weeks. -Consider whether pain is actually coming from gout, though. Bilateral lower extremity swelling from volume-related third-spacing can cause pain. However, if thought to be having a gout flare, allopurinol will not treat pain, and may make gout flare worse. He may need colchicine or prednisone. -Consider seeing in person or asking to go to CC in order to evaluate whether pain is coming from joint (gout) or from non-joint areas, and then assessing whether there is significant lower extremity swelling. Ricarda Du MD Couturie, Michael John, MD Cc: Deep Pruitt APRN; Taylor Malagon APRN Hi all, Allopurinol can be increased but if this is acute gout, increasing it is unlikely to decrease pain. ??You may need to consider prednisone. Ricarda ----- Message ----- From: Taylor Malagon APRN Sent: 05/20/2020 ?? 9:49 AM EST To: Deep Pruitt APRN, * Subject: RE: Gout due to renal impairment ? Shahzad Adame, thanks for the information. I agree with Dr. Rosenberg about both the Allopurinol dosing and for looking for other reasons for leg pain once the gout episode resolves. ??In addition, I would maintain the same Lasix for now. I have CC'd Ricarda Du MD, his primary chocolate temperer. She has a phone consult with him on 07/08. Best regardsTaylor Assessment & Plan (05/20/2020 7:54 AM EST): Jeovanny Malagon APRN (Nephrology Provider) Pt developed Gout due to renal impairment The Pt is currently taking AllopurinoL (ZYLOPRIM) 100 mg tablet TAKE 0.5 TABLETS (50 MG TOTAL) BY MOUTH DAILY, should I increase dose to 50 mg daily or change to another medication, please advise Pt stated he is worried about a f/u and increased pain in joel. Legs related to Gout. Pt asked about pain and stated pain level a 9/10, with the Left leg hurting more. Pt asked about swelling, Pt stated increased swelling to BLE Results for DARREL BHARDWAJ ( ) as of 05/20/2020 07:37 Ref. Range 04/07/2020 Uric Acid Latest Ref Range: 4.0 - 8.0 mg/dL 8.3 (H) Telemedicine (02/12/2020) Pt was dx with Gout (that has been going on for a month)in the Hospital and was put on Allopurinol 0.5 mg but the Pt was instead tasking 1 tab 100 mg PO QD, will restart the Pt on 0.5 tab and redraw uric acid levels in 2 weeks and reassess Results for DARREL BHARDWAJ ( ) as of 02/12/2020 14:11 ?? Ref. Range 02/04/2020 18:16 Uric Acid Latest Ref Range: 2.7 - 7.3 mg/dL 10.0 (H) Assessment & Plan (04/10/2020 3:15 PM EST): Results for DARREL BHARDWAJ ( ) as of 04/10/2020 15:12 Ref. Range 04/07/2020 11:04 Uric Acid Latest Ref Range: 4.0 - 8.0 mg/dL 8.3 (H) Assessment & Plan (04/08/2020 5:49 PM EST): -Pt continues to take his Allopurinol 50 mg PO QD, will ask the Pt get more labs drawn to assess effectiveness of his medication to help with his Gout allopurinoL (ZYLOPRIM) 100 mg tablet Take 0.5 tablets (50 mg total) by mouth daily Oral from 02/28/2020 -03/29/2020 -Will ask Pt to get another Uric Acid level in a month to determine if the Pt needs to stay on allopurinoL (ZYLOPRIM) 100 mg tablet Take 0.5 tablets (50 mg total) by mouth daily, Once his uric levels are under control (around 5) then will start the Pt on Febuxostat 40 mg PO QD -Results for DARREL BHARDWAJ ( ) as of 04/08/2020 17:44 Ref. Range 02/04/2020 04/07/2020 Uric Acid Latest Ref Range: 4.0 - 8.0 mg/dL 10.0 (H) 8.3 (H) Assessment & Plan (03/29/2020 9:07 AM EST): Pt continues to take his Allopurinol 50 mg PO QD, will ask the Pt get more labs drawn to assess effectiveness of his medication to help with his Gout allopurinoL (ZYLOPRIM) 100 mg tablet Take 0.5 tablets (50 mg total) by mouth daily Oral from 02/28/2020 -03/29/2020 -Once his uric levels are under control then will start the Pt on Febuxostat 40 mg PO QD Will ask Pt to get another Uric Acid level and determine if the Pt needs to stay on allopurinoL (ZYLOPRIM) 100 mg tablet Take 0.5 tablets (50 mg total) by mouth daily Results for DARREL BHARDWAJ ( ) as of 03/29/2020 08:27 Ref. Range 02/04/2020 18:16 Uric Acid Latest Ref Range: 2.7 - 7.3 mg/dL 10.0 (H) Results for DARREL BHARDWAJ ( ) as of 03/29/2020 08:27 Ref. Range 03/12/2020 08:09 Uric Acid, Urine, Random Latest Ref Range: See Note: mg/dL 7 Assessment & Plan (02/24/2020 5:43 PM EDT): Sent note to the pharmacy asking for Is it possible to have all the Pt medication bottle be in macedonian, Pt had a medication (allopurinoL (ZYLOPRIM) 100 mg tablet) error because he can not read in Nepalese, the Pt was prescribed 1/2 tab but instead he took a whole tab Assessment & Plan (02/12/2020 2:42 PM EDT): Pt was dx with Gout (that has been going on for a month)in the Hospital and was put on Allopurinol 0.5 mg but the Pt was instead tasking 1 tab 100 mg PO QD, will restart the Pt on 0.5 tab and redraw uric acid levels in 2 weeks and assess if Pt should go on Colchicine 0.6 mg a day for preventative care, when Pt sees his Nutrionalist ist he should ask for food that a re good to keep is Gout under control Results for DARREL BHARDWAJ ( ) as of 02/12/2020 14:11 Ref. Range 02/04/2020 18:16 Uric Acid Latest Ref Range: 2.7 - 7.3 mg/dL 10.0 (H) Chronic kidney disease (CKD) stage G3a/A3, moderately decreased glomerular filtration rate (GFR) between 45-59 mL/min/1.73 square meter and albuminuria creatinine ratio greater than 300 mg/* 01/30/2020 Assessment & Plan (06/24/2022 9:12 AM EST): 12/16/2021 Nephrology Referral: Darrel Bhardwaj is a [...] primary care provider. RTC in 9 months Assessment & Plan (12/24/2021 4:43 PM EDT): 12/16/2021 Nephrology Referral: Darrel Bhardwaj is a [...] primary care provider. RTC in 9 months CCM: 15 minutes 12/24/2021 Deep Pruitt APRN Assessment & Plan (12/20/2021 4:12 PM EDT): 12/06/2021 Nephrology Referral note: Darrel Bhardwaj is a 51 y/o with [...] pain with primary care provider. RTC in 2 months ?? Recommendations were provided to the patient verbally and/or in the patient instructions. Patient was reminded to obtain patient instructions and if applicable, to make the next appointment to see me at the front maker lockstitch ?? Latest Reference Range & Units 09/09/21 12/15/21 BUN 7 - 25 mg/dL 31 (H) 29 (H) Creatinine 0.70 - 1.30 mg/dL 1.40 (H) 1.55 (H) BUN/Creatinine Ratio 6 - 22 (calc) 22.1 19 eGFR (NON -Kosovan) >60 mL/min/1.73m2 53 eGFR (Afr Amer) >60 mL/min/1.73m2 >60 eGFR (Creatinine) > OR = 60 mL/min/1.73m2 54 (L) Assessment & Plan (09/12/2021 12:14 PM EDT): The Pt continues to have decreased renal function, will continue to monitor Results for DARREL BHARDWAJ ( ) as of 09/12/2021 11:53 Ref. Range 09/09/2021 BUN Latest Ref Range: 6 - 20 mg/dL 31 (H) Creatinine Latest Ref Range: 0.40 - 1.30 mg/dL 1.40 (H) BUN/Creatinine Ratio Latest Ref Range: 8.0 - 23.0 22.1 eGFR (NON -Kosovan) Latest Ref Range: >60 mL/min/1.73m2 53 eGFR (Afr Amer) Latest Ref Range: >60 mL/min/1.73m2 >60 Glucose Latest Ref Range: 70 - 100 mg/dL 148 (H) Results for DARREL BHARDWAJ ( ) as of 09/12/2021 12:03 Ref. Range 09/09/2021 Protein, UA Latest Ref Range: NEGATIVE 3+ (A) Glucose, UA Latest Ref Range: NEGATIVE 2+ (A) Occult Blood Latest Ref Range: NEGATIVE 1+ (A) RBC, UA Latest Ref Range: < OR = 2 /HPF 3-10 (A) Results for DARREL BHARDWAJ ( ) as of 09/12/2021 12:03 Ref. Range 09/09/2021 Albumin, Urine, Random Latest Ref Range: Ref Range Not Established 1,616.3 Albumin/Creatinine Ratio, Urine, Random Latest Ref Range: <30.0 mg/g Cr 4,684.9 (H) CCM: 15 minutes 09/12/2021 Deep Pruitt APRN Assessment & Plan (09/10/2021 5:35 PM EDT): The Pt has a f/u Nephrology appointment on 09/14/2021 at 10:00 AM with Taylor Malagon APRN at the Nephrology at [address] [place] [address], The Renal department is working on getting the Pt a 24 hour HTN monitor to assess the effectiveness of his recent medication changes, used macedonian interpretor [id number] ?? 07/13/2021 Renal Referral Note:?? Assessment and plan: Blood pressure is above goal of < 130/80. At his last CV visit on 07/06 he reported large variability in blood pressure readings, being in the 100s/60-70s in the morning and up to the 180-190s/90s in the evenings. At that visit his losartan was changed from 100 mg daily to 50 mg BID. On 07/13 his amlodipine was discontinued by nephrology and furosemide was increased to 80 mg daily due to TAYLOR. Today his reports morning BPs of 120-130s/80s and evening pressures of 150s/80-90s. He continues to endorse TAYLOR today, slightly improved but still painful. Plan: 1. Immediate plan: ?? Continue current medications ?? Continue tracking BPs and HRs at home ?? Messaged to provider to ensure patient can obtain supplemental oxygen ?? Follow-up visit in 2 weeks 2. Future considerations: ?? 24-hour ABPM ?? Consider resuming amlodipine at lower dose if TAYLOR resolves given history of tolerating medication ?? Consider trial of hydralazine in the evening 3. To optimize lifestyle factors: ?? Weight loss, consider bariatric surgery ?? Continue to reduce sodium intake ?? Follow-up with sleep medicine Assessment & Plan (08/02/2021 3:31 PM EDT): The Renal department is working on getting the Pt a 24 hour HTN monitor to assess the effectiveness of his recent medication changes, used macedonian interpretor 9217 07/13/2021 Renal Referral Note: Assessment and plan: Blood pressure is above goal of < 130/80. At his last CV visit on 07/06 he reported large variability in blood pressure readings, being in the 100s/60-70s in the morning and up to the 180-190s/90s in the evenings. At that visit his losartan was changed from 100 mg daily to 50 mg BID. On 07/13 his amlodipine was discontinued by nephrology and furosemide was increased to 80 mg daily due to TAYLOR. Today his reports morning BPs of 120-130s/80s and evening pressures of 150s/80-90s. He continues to endorse TAYLOR today, slightly improved but still painful. ?? Plan: 1. Immediate plan: ?? Continue current medications ?? Continue tracking BPs and HRs at home ?? Messaged to provider to ensure patient can obtain supplemental oxygen ?? Follow-up visit in 2 weeks ?? 2. Future considerations: ?? 24-hour ABPM ?? Consider resuming amlodipine at lower dose if TAYLOR resolves given history of tolerating medication ?? Consider trial of hydralazine in the evening ?? 3. To optimize lifestyle factors: ?? Weight loss, consider bariatric surgery ?? Continue to reduce sodium intake ?? Follow-up with sleep medicine Assessment & Plan (06/16/2021 10:30 AM EST): - plans to follow-up with Nephrology July 13 - last CMP in January - will encourage patient to have labs completed Assessment & Plan (04/08/2021 7:35 AM EST): Will have Nurse call Pt and ask if he is currently consuming a renal and a diabetic friendly diet Here are some foods to avoid -Dark-colored soda -Avocados. ... -Canned foods. ... -Whole wheat bread. ... -Brown rice. ... -Bananas. ... -Dairy. ... -Oranges and orange juice. The Pt will be given a referral to talk with the [facility] Radar Tester for further assessment of his current diet and is it appropriate for his Diabetes and Renal health issues CCM: 10 minutes 04/08/2021 Deep Pruitt APRN Assessment & Plan (10/14/2020 1:56 PM EDT): The Pt is going to call to schedule another Kidney appointment because he missed the last Assessment & Plan (07/11/2020 5:43 PM EST): 07/06/2020 Nephrology Referral Note Assessment and Plan: 50 y.o. Male with DM/HTN with NICOLAS last year, likely in setting of uncontrolled DM, glucosuria. Now with improvement near baseline but with remnant CKD- likely stage IIIa. -Discussed CKD and the potential etiology and progressive nature of it. Also advised him on methods to delay/avoid progression including blood pressure control, avoidance of NSAIDs, and diabetes control. -Continue RAAS inhibition/empaglafozin -Encouraged him to get COVID vaccine when he becomes age-eligible Recommended date of follow-up: 6 months Assessment & Plan (04/08/2020 6:04 PM EST): RENAL on 02/04/2020 8:08 PM for Renal Failure?? -FINDINGS: The right kidney measures 13.7 cm and the left kidney measures 13.2 cm. There is no hydronephrosis or nephrolithiasis of either kidney. In the upper pole of the left kidney, the renal parenchyma appears echogenic (image 16). The bladder is unremarkable. The right ureteral jet is seen. -IMPRESSION: ??No hydronephrosis or nephrolithiasis, Nonspecific echogenic geographic focus in the left upper renal pole, which could be secondary to inflammation or R/T medical renal disease. No additional findings of avascularity or collection is noted. Consider evaluation with CT or MRI renal protocol, once the patient's renal fx improves. Assessment & Plan (03/13/2020 2:18 PM EST): Images from the original note were not included. Taylor Malagon APRN Gallant, Brian S, APRN Thanks Brian- he is going to see Dr. Du on 04/07 for ongoing CKD care. His creatinine has improved, which is good. In more advanced CKD, elevated PTH is very common, often much higher. We will trend the PTH to see if it comes down. He had been taking potassium and magnesium supplements that he said a steam drier operator told him were good for his kidneys. I emphasized that he should stop and that these would do more harm than good, I hope he did stop them! Taylor Kim Assessment & Plan (02/28/2020 4:45 PM EDT): 02/25/2020 Pt went to his Renal appointment Impression and Recommendations: Darrel Bhardwaj is a 49 y.o man with DM and HTN who is recovering from NICOLAS and presents for follow up. NICOLAS on CKD: On hospital discharge his creatinine was down to 1.7; eGFR 43, CKD stage 3b. We had a long discussion about renal function, renal failure, and preventing progression of renal disease. Emphasized blood sugar and blood pressure control and avoiding NSAIDS ( says he does). He is on Losartan now, would keep dose the same until we get a urine protein/creatinine ratio with next set of renal labs ( ordered. Hypertension: good control both in clinic today and on his report from home. Will maintain same regimen. Diabetes: Medication changes made while hospitalized have helped him bring blood sugars under much better control. Anemia of CKD: Hemoglobin and hematocrit are well above range for needing to start erythropoietin replacement.?? Renal bone disease: Ca/PO4/PTH are in goal range Acidosis: Bicarbonate in good range without supplementation Nutrition: He is trying to watch salt and sugar intake so as to lose weight and further help his b/p and BS. Asked him to stop magnesium and potassium supplements as they have the potential to do harm in a patient with reduced renal function. Asked Darrel to get full set of CKD labs in the next few weeks in preparation for his first visit with a chocolate temperer, Ricarda Du MD on 04/07/2020. Assessment & Plan (02/12/2020 2:18 PM EDT): Pt was recently in the hospital for Kidney issues, the Pt missed a previous Kidney appointment and will ask Pt to reschedule another Kidney appointment Date & Time 02/25/2020 10:00 AM Provider Taylor Malagon APRN Department [facility] at [address] [facility] Nephrology [address] [facility] [address] [facility] [address] Comment: Pt needs a Kidney referral due to elevated Blood sugars and a GFR of 45 Assessment & Plan (01/30/2020 4:20 PM EDT): Pt needs a Kidney referral due to elevated Blood sugars and a GFR of 45 Results for DARREL BHARDWAJ ( ) as of 01/30/2020 14:09 Ref. 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) 01/30/2020 Assessment & Plan (06/24/2022 9:15 AM EST): -Pt had a CVA from 2017 -Presumed etiology of prior stroke (see MRI of Brain from 2017 under [facility] -Significant deficits on neurologic exam Memory loss and Left handed weakness -Imaging and prior evaluation -Current blood thinning agents is aspirin -Potential details to include, when relevant: poor GAIT, uses a walker to get around -How the diagnosis was made: Pt lived in [facility] at the time, Under Multimedia in [facility] see specific file at specific date [id number] Image MRI Result [facility] - MRI BRAIN CVA -09/25/2016 [id number].TIF Image Evaluation [facility]- Left handed weakness note - 02/20/2017 ?? [...] cerebral atrophy to suggest a specific diagnosis. Assessment & Plan (04/11/2021 4:25 PM EST): Will ask Pt Advocate to talk with Pt over the phone to further investigate the two letters further that the Pt is requesting 1) Patient is asking for a letter for DMV because the Patient wants to get a Handicapped Parking sign in front of his house/apartment. Is there a form to be fill out from the DMV that states the Patient is disabled and is unable to walk long distance so he can get a Handicap parking in front of his place.to call 2) Pt is asking for a letter to be given to the [facility] advising stating that the Pt is disabled and needs help with housing Is there a form to be fill out from the [facility] advising that the Pt is disabled and needs help with housing t 03/26/21 Oksana Fox to Deep Pruitt NP Summary: Letters needed by patient This song writer met with patient at the clinic today 03.26.21 per nurses request, to assistance with letters that the patient is requesting. This song writer spoke to patient and patient is asking for 2 letters from provider. -1. Patient is asking for a letter for DMV. Patient wants to get a Handicapped Parking sign in front of his house/apartment. Patient is stating that he need a letter stating that he is disabled and is unable to walk long distance, so that he can present this as evidence that he needs this parking in front of his place. -2. Patient is also requesting a letter for [facility] advising that he is disabled. Patient stated that he has already applied for and wants this letter to help him get Housing CCM: 15 minutes 04/11/2021 Deep Pruitt APRN Assessment & Plan (05/31/2020 5:20 PM EST): Pt had a CVA from 2017 and needs Neuro clearance before getting a Colonoscopy Presumed etiology of prior stroke (see MRI of Brain from 2017 under [facility] Significant deficits on neurologic exam Memory loss and Left handed weakness Imaging and prior evaluation Current blood thinning agents is aspirin Potential details to include, when relevant: poor GAIT, uses a walker to get around How the diagnosis was made: Pt lived in [facility] at the time, Under [facility] in [facility] see specific file at specific date [id number] Image MRI Result [facility] - MRI BRAIN CVA -09/25/2016 [id number] Image Evaluation [facility]- Left handed weakness note - 02/20/2017 Required Test Results: CT head or MRI brain 05/15/2020 MRI [...] cerebral atrophy to suggest a specific diagnosis. Assessment & Plan (01/30/2020 2:51 PM EDT): Pt needs a walker because he had a stroke in 2017 and has partially recovered, Pt weighs over 270 lbs and has uncontrolled sugar and the Pt continues to deal with diabetic neuropathy especialy with his A1C above 10, Pt is working with his Diabetic Specialist at [facility] and has an appointment next week, will increase his Gababentin to 800 mg PO TID which has helped with his neuropathic pain, Spent 25 mins with Pt using the Accounting Professional Microalbuminuric diabetic nephropathy (HC Code) (HC CODE) 09/26/2019 Assessment & Plan (06/24/2022 9:23 AM EST): The Pt has elevated Protein urea and continues to go to his appointments with his Renal Doctor Latest Reference Range & Units 09/09/21 02/15/22 Albumin/Creatinine Ratio, Urine, Random <30.0 mg/g Cr 4,684.9 (H) 3,168.6 (H) Assessment & Plan (01/08/2021 1:32 PM EDT): The Pt has elevated Protein urea and has an appointment with his Renal Doctor on 01/12/2021 at 2:40 PM with Ricarda Du MD at the Nephrology at [address] [place] [address] Results for DARREL BHARDWAJ ( ) as of 01/08/2021 13:09 Ref. Range 03/12/2020 01/07/2021 Protein/Creatinine Ratio Latest Ref Range: 0.022 - 0.128 mg/mg creat 3.176 (H) 8.806 (H) Protein, Total, Random Ur Latest Ref Range: 5 - 25 mg/dL 54 (H) 317 (H) Assessment & Plan (09/26/2019 9:56 AM EDT): Will refer the Pt to the Renal specialist because the Pt's Microalbumin/Creat Ratio 3,278 (H), and last A1C was12.6 (H) Results for DARREL BHARDWAJ ( ) as of 09/19/2019 07:04 eGFR (NON -Kosovan) Latest Ref Range: > OR = 60 mL/min/1.73m2 77 Microalbumin/Creat Ratio Latest Ref Range: <30 mcg/mg creat 3,278 (H) 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 09/26/19 20 Assessment & Plan (06/24/2022 9:19 AM EST): - 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 - lidocaine patches ordered today to help with pain control, trying to avoid Tramadol for now due to constipation Assessment & Plan (01/21/2021 12:01 PM EDT): - 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 - lidocaine patches ordered today to help with pain control, trying to avoid Tramadol for now due to constipation - continue physical therapy - follow-up PCP in March scheduled Class 3 severe obesity with serious comorbidity and body mass index (BMI) of 40.0 to 44.9 in adult 09/09/2019 Assessment & Plan (06/24/2022 9:10 AM EST): Pt has a BMI of 41.8 and is working with the wellness clinic to work on his weight loss plan Assessment & Plan (02/19/2022 2:11 PM EDT): -The Pt continues to work on weight loss -01/06/2022 the Pt had a BMI of 40.4 and is working with the wellness clinic to work on his weight loss plan -At today's visit the Pt now has a BMI of 39.2 and had lost 8 lbs -Pt is working on walking outside 2-3 times a day putting a referral in for Bariatric surgery and Pt needs a wire wrapper machine operator Assessment & Plan (09/10/2021 5:42 PM EDT): Pt has a BMI of 40.4 and is working with the wellness clinic to work on his weight loss plan, putting a referral in for Bariatric surgery and Pt needs a wire wrapper machine operator Assessment & Plan (09/26/2019 9:45 AM EDT): Pt has a BMI of 40.4 and is working with the wellness clinic to work on his weight loss plan, putting a referral in for Bariatric surgery and Pt needs a wire wrapper machine operator Assessment & Plan (09/09/2019 2:47 PM EDT): Pt has a BMI of 40.4 and is working with the wellness clinic to work on his weight loss plan Asthma exacerbation, mild 08/14/2019 Assessment & Plan (03/24/2022 3:36 PM EST): -The Pt saw Pulmonology and was informed that he does not need to be on oxygen at this time- -The Pt was informed that his body is deconditioned and that he needs to get in better shape -The Pt was encourage to do walking with his walker (for balance issues) 5 days a week in his apartment -Week 1 do 5 mins walk, Week 2 do 10 mins walk, Week 3 do 15 mins walk, etc 03/21/2022 Pulmonology Note: Assessment: Mr. Bhardwaj is a 51 y.o. male with moderate persistent asthma here for follow-up. His asthma symptoms have been stable with the use of Advair and Spiriva. I will continue with the same therapy for asthma. Walking oximetry revealed stable oxygenation, however, demonstrated rapid induction of tachycardia. These findings suggest that part of his dyspnea is associated with deconditioning. He does not fulfill criteria for oxygen supplementation at this time. PFTs reveal a restrictive pattern, however his numbers are stable. I discussed the plan with the patient and his who was present through the whole encounter. The interview was conducted in Fijian which is my yurok language. I have encouraged Mr. Bhardwaj to contact us with any questions, concerns or clinical changes. Plan: 1. Continue current therapy. 2. No need for supplemental oxygen. Assessment & Plan (12/23/2021 12:10 PM EDT): -The Pt continues to feel like he is constantly SOB and is asking to be put on Oxygen CRULLER MAKER -The Pt was given a list of labs to complete and once done then the Pt will be scheduled appointment with his Dobie Worker -The Pt and the Dobie Worker will decide together if the pt needs to be on O2 CRULLER MAKER or not 08/18/2021 Pulmonary Note: Assessment: Mr. Bhardwaj is a 51 y.o. male with history of asthma here for follow-up. He has not responded well to the Breo and expressed that the advair was working better for him. I will resume advair HFA with a spacer. I provided a spacer with instructions. His PFTs reveal a restrictive pattern. He also has a component of air trapping. We will monitor his response. I will check Immunoglobulin E (IgE) and ImmunoCAP test for specific IgE. He also has increased sleep symptoms and he is scheduled to see the sleep clinic next month. Based on previous ABGs, he is hypercapnic and I suspect he may have a component of alveolar hypoventilation. I explained these recommendations to the patient and his who was present at the end of the encounter. I have encouraged Mr. Bhardwaj to contact us with any questions, concerns or clinical changes. Plan: 1. Stop Breo. 2. Resume advair with spacer. 3. Sleep clinic recommendations. 4. Immunoglobulin E (IgE) and ImmunoCAP test for specific IgE. Assessment & Plan (09/29/2021 2:13 PM EDT): Images from the original note were not included. Well-controlled on current regimen. Asthma Controller Medications Nasal Corticosteroids fluticasone propionate (FLONASE) 50 mcg/actuation nasal spray Sig - Route: Use 1 spray in each nostril daily. - each nostril Asthma/COPD Therapy - Beta Adrenergic-Glucocorticoid Combinations fluticasone propion-salmeteroL (ADVAIR HFA) 230-21 mcg/actuation inhaler Sig - Route: Inhale 2 puffs into the lungs 2 (two) times daily. After use, rinse mouth with water. - Inhalation Asthma Rescue Medications Asthma/COPD Therapy - Beta 2-Adrenergic Agents, Inhaled, Short Acting albuterol (PROVENTIL, VENTOLIN) 2.5 mg /3 mL (0.083 %) nebulizer solution Sig: TAKE 3 MLS BY NEBULIZATION EVERY 6 (SIX) HOURS NEEDED FOR SHORTNESS OF BREATH. ALBUTEROL AND ALB* albuterol sulfate 90 mcg/actuation HFA aerosol inhaler Class: Historical Med Assessment & Plan (09/12/2021 4:12 PM EDT): 08/18/2021 Pulmonary Note: Assessment: Mr. Bhardwaj is a 51 y.o. male with history of asthma here for follow-up. He has not responded well to the Breo and expressed that the advair was working better for him. I will resume advair HFA with a spacer. I provided a spacer with instructions. His PFTs reveal a restrictive pattern. He also has a component of air trapping. We will monitor his response. I will check Immunoglobulin E (IgE) and ImmunoCAP test for specific IgE. He also has increased sleep symptoms and he is scheduled to see the sleep clinic next month. Based on previous ABGs, he is hypercapnic and I suspect he may have a component of alveolar hypoventilation. I explained these recommendations to the patient and his who was present at the end of the encounter. I have encouraged Mr. Bhardwaj to contact us with any questions, concerns or clinical changes. Plan: 1. Stop Breo. 2. Resume advair with spacer. 3. Sleep clinic recommendations. 4. Immunoglobulin E (IgE) and ImmunoCAP test for specific IgE. CCM: 10 minutes 09/12/2021 Deep Pruitt APRN Assessment & Plan (08/02/2021 3:27 PM EDT): 06/17/2021 the Pt saw Pulmonology and they recommended that the Pt be started on noctural oxygen at 2L/min , the Pt has had several calls from Pulmonology to order and deliver the noctural oxygen at 2L/min Assessment & Plan (06/16/2021 4:21 PM EST): Images from the original note were not included. Well-controlled on current regimen. Asthma Controller Medications Nasal Corticosteroids fluticasone propionate (FLONASE) 50 mcg/actuation nasal spray Sig - Route: Use 1 spray in each nostril daily. - each nostril Asthma/COPD Therapy - Beta Adrenergic-Glucocorticoid Combinations fluticasone furoate-vilanteroL (BREO ELLIPTA) 100-25 mcg/dose blister powder for inhalation Sig - Route: Inhale 1 puff into the lungs daily. - Inhalation Asthma Rescue Medications Asthma/COPD Therapy - Beta 2-Adrenergic Agents, Inhaled, Short Acting albuterol (PROVENTIL, VENTOLIN) 2.5 mg /3 mL (0.083 %) nebulizer solution Sig: TAKE 3 MLS BY NEBULIZATION EVERY 6 (SIX) HOURS NEEDED FOR SHORTNESS OF BREATH. ALBUTEROL AND ALB* albuterol sulfate 90 mcg/actuation HFA aerosol inhaler Class: Historical Med - patient reassured today that his oxygen levels are excellent, lung sounds clear on exam, no asthma exacerbation at this time. - patient informed to see Pulmonology tomorrow and Sleep Medicine as he needs new sleep apnea supplies. Has PFT's scheduled for Pulm. Assessment & Plan (04/23/2021 10:26 AM EST): Pt saw Pulmonology and had some questions about using the new Breo medication 04/08/2021 Pulmonary F/U Note: Impression/Plan Pulmonary Issues:Dyspnea-??rest and exertional, Hypoxia, Moderate restrictive physiology, Peripheral eosinophilia, REGI on CPAP, GERD, Obesity? Mr. Darrel Bhardwaj??is a 50 y.o.??male??with history of asthma and worsening??dyspnea.??At the time of last visit, we made multiple recommendations for further evaluation of his complaints which largely have not yet been completed. Mr. Bhardwaj is feeling exasperated due to his language barrier and states that many offices do not have bilingual staff and he feels that it is too difficult to make appointments and understand his care. We reviewed ways in which he can request an jewel lathe operator over the phone and I am happy to facilitate connection with other practices.??I have personally messaged GI, cardiology, and sleep medicine to arrange follow-ups as indicated.? Regarding his dyspnea and cough, he feels small symptomatic improvement from the time of last visit. He had a high resolution CT chest on 03/30 which did not further inform restrictive physiology. There are some areas of mild air-trapping and subsegmental atelectasis. Fatty liver was incidentally found along with enlarged prevascular node. Darrel also has peripheral eosinophilia which may be in support of an asthma diagnosis, along with air-trapping on CT. However, his complaints are out of proportion to seemingly lmap-hr-yctxhsle asthma and his dyspnea is likely multifactorial. What is interesting is that his ABG today reveals hypoxia with widened alveolar-arterial gradient and a six-minute walking oximetry test reveals improved oxygenation with ambulation. This raises the question of resting atelectasis, therefore potential nocturnal hypoxia; He will need overnight oximetry study for further evaluation. He has REGI to which he uses CPAP, and this machine recently broke. I have provided him with the phone number and will personally reach out to sleep medicine for coordination of care. ?? He has not yet completed??pulmonary function testing for diffusing capacity and lung volumes, which may further inform restrictive defect. His clinical picture is overall suggestive of obesity-related restriction. His complex medical history including CKD and very poorly controlled T2DM, obesity, and GERD??also may be contributors to dyspnea.??His GERD was evaluated yesterday with EGD and he is awaiting further recommendations from GI team; His cough could possibly be worsened by uncontrolled reflux. Per chart review it seems that he is considering bariatric surgery. ?? We discussed how to follow-up with all of his specialists.??He will have labs drawn including CBC with differential, allergen testing, and BNP. For now, he should continue daily ICS/LABA and will switch to Breo for convenience.??He will need to be closely followed and will return in August with Dr. Suarez or sooner as needed.? Plan: - ABG, 6MWT ordered today - overnight oximetry ordered, full set PFTs??at next appt?? -??switch to Breo 100 once daily, *STOP Advair, *inhaler teaching personally reviewed with pt and , albuterol PRN -??CT chest 6 month follow-up??(prevascular node) -??Continue??PPI 30 mins before breakfast??plus recommendations by GI team, GI follow-up needed?? - Sleep medicine CPAP machine optimization??needed, possible PSG - Cardiology follow-up??(palpitations, dyspnea, LE edema)?? - Labs: RAST with IgE, CBC, p-BNP, CMP Assessment & Plan (04/09/2021 2:28 PM EST): 04/08/2021 Pulmonary F/U Note: Impression/Plan: Pulmonary Issues: 1. Dyspnea- rest and exertional 2. Hypoxia 3. Moderate restrictive physiology 4. Peripheral eosinophilia 5. REGI on CPAP 6. GERD 7. Obesity Mr. Darrel Bhardwaj is a 50 y.o. male with history of asthma and worsening dyspnea. At the time of last visit, we made multiple recommendations for further evaluation of his complaints which largely have not yet been completed. Mr. Bhardwaj is feeling exasperated due to his language barrier and states that many offices do not have bilingual staff and he feels that it is too difficult to make appointments and understand his care. We reviewed ways in which he can request an jewel lathe operator over the phone and I am happy to facilitate connection with other practices. I have personally messaged GI, cardiology, and sleep medicine to arrange follow-ups as indicated. ?? Regarding his dyspnea and cough, he feels small symptomatic improvement from the time of last visit. He had a high resolution CT chest on 03/30 which did not further inform restrictive physiology. There are some areas of mild air-trapping and subsegmental atelectasis. Fatty liver was incidentally found along with enlarged prevascular node. Darrel also has peripheral eosinophilia which may be in support of an asthma diagnosis, along with air-trapping on CT. However, his complaints are out of proportion to seemingly oqah-hv-qawuqxgl asthma and his dyspnea is likely multifactorial. What is interesting is that his ABG today reveals hypoxia with widened alveolar-arterial gradient and a six-minute walking oximetry test reveals improved oxygenation with ambulation. This raises the question of resting atelectasis, therefore potential nocturnal hypoxia; He will need overnight oximetry study for further evaluation. He has REGI to which he uses CPAP, and this machine recently broke. I have provided him with the phone number and will personally reach out to sleep medicine for coordination of care. ?? He has not yet completed pulmonary function testing for diffusing capacity and lung volumes, which may further inform restrictive defect. His clinical picture is overall suggestive of obesity-related restriction. His complex medical history including CKD and very poorly controlled T2DM, obesity, and GERD also may be contributors to dyspnea. His GERD was evaluated yesterday with EGD and he is awaiting further recommendations from GI team; His cough could possibly be worsened by uncontrolled reflux. Per chart review it seems that he is considering bariatric surgery. ?? We discussed how to follow-up with all of his specialists. He will have labs drawn including CBC with differential, allergen testing, and BNP. For now, he should continue daily ICS/LABA and will switch to Breo for convenience. He will need to be closely followed and will return in August with Dr. Suarez or sooner as needed. ?? Plan: - ABG today - 6MWT today - overnight oximetry ordered - full set PFTs at next appt - switch to Breo 100 once daily *STOP Advair *inhaler teaching personally reviewed with pt and - albuterol PRN - CT chest 6 month follow-up (prevascular node) - Continue PPI 30 mins before breakfast plus recommendations by GI team - GI follow-up needed - Sleep medicine CPAP machine optimization needed, possible PSG - Cardiology follow-up (palpitations, dyspnea, LE edema) - RAST with IgE - CBC - p-BNP - CMP ?? It is a pleasure to participate in the care of this patient. Return to clinic in 3 months . Isha Brown APRN Assessment, plan, and documentation in collaboration with Dr. Deep oY. ?? [facility] Quality Initiatives: ?? Tobacco counseling: Patient is a non-smoker. ?? Lung cancer screening: Patient does not meet current criteria for lung cancer screening. A CT scan is otherwise being performed as part of this patient's pulmonary evaluation as discussed above. ?? Bone Health Risk Management: Not applicable. ?? Immunization status: Patients should receive the flu vaccine annually. Pneumococcal vaccination recommendations for both PPSV23 (Pneumovax) and PCV13 (Prevnar) per CDC guidelines were reviewed. Immunizations are up to date. COVID vaccine #3 indicated, encourage pt to receive. Electronically Signed by Isha Brown APRN, April 08, 2021 Assessment & Plan (01/24/2021 6:38 AM EDT): 01/21/2021 Pulmonary Referral Note: Impression/Plan: Pulmonary Issues: 1. Dyspnea at rest and exertional 2. Moderate restrictive physiology 3. Eosinophilia 4. REGI on CPAP 5. GERD 6. Obesity -This is a 50 y.o. male with history of asthma, progressively worsening eosinophilia, and dyspnea. His pulmonary function testing reveals restrictive disorder today, however the lab was unable to perform DLCO and lung volumes today. A full-set of PFTs are needed to better evaluate his pulmonary disorder and these will be scheduled KASHMIR. He also has reported oxygen desaturations and a formal walking oximetry test is necessary. Given prior abnormal CXR and restrictive physiology on PFTs, he needs a high resolution CT of his chest to evaluate for lung disease. He needs repeat ABG as a prior one was abnormal as well. -I suspect that the dyspnea is multi-factorial given his complex medical history including CKD and very poorly controlled T2DM, obesity, and GERD. He will have labs drawn to better evaluate including CBC with differential, allergen testing, and BNP. For now, he should continue Advair and albuterol. We discussed PPI and GERD precautions today and he agrees to implement these for 2 months. If his symptoms do not improve in 2 months, we will increase his therapy. He recently moved to [place] and I have referred him to sleep medicine to establish care and optimize his CPAP as it has not been adjusted in over 3 years. He will need to be closely followed and will return in 2 months. Plan: - continue Advair 115mcg HFA 2p BID - albuterol PRN - HRCT - PPI 30 mins before breakfast - GERD precautions - Sleep medicine referral for CPAP machine optimization and establish care - RAST with IgE - CBC w diff - nt pro-BNP - full set PFTs, 6MWT, and ABG - eosinophilia evaluation CCM: 10 minutes 01/24/2021 Deep Pruitt APRN Assessment & Plan (11/18/2020 3:26 PM EDT): The Pt has received his nebulizer and his asthma is getting better, Pt stated that his Asthma always gets worse with seasonal allergies spent 20 mins with Pt using Fijian [employer] [id number] Assessment & Plan (11/14/2020 11:15 AM EDT): Pt has had Asthma all his life and feels it is worsening due to seasonal allergies and he needs a new nebulizer, the old one was lost, For the past three day the Pt has not had access to his nebulizer and his asthma is worse Asthma exacerbation, mild Code: J45.901, duration 99 Assessment & Plan (11/14/2020 11:11 AM EDT): Pt has had Asthma all his life and feels it is worsening due to seasonal allergies and he needs a new nebulizer, the old one was lost, For the past three day the Pt has not had access to his nebulizer and his asthma is worse Asthma exacerbation, mild Code: J45.901, duration 99 Assessment & Plan (04/17/2020 4:20 PM EST): Hematology referral for elevated Eosonophils 1. Restatement of the question Elevated eosinophil count 2. Recommendation(s) Monitoring of CBC and eosinophil count, and consideration of referral to hematology should eosinophil count consistently increase 3. Rationale and/or evidence for response (include component(s) of medical record reviewed and relied on) Patient has had an absolute eosinophil count in the 600-700 range since at least Dec or Jan of this year. The prior levels do not paulina it as elevated because the normal range for those tests include 0 - 1,000 (whereas the level in Nov had a range of 0-500 as normal). Either way, the patient's underlying medical conditions (CKD and diabetes) may lead to inflammation and elevated WBC and eosinophil count. 4. Contingency plan May continue to monitor blood counts and refer to hematology if significant increase in CBC parameters or other clinical concerns. Assessment & Plan (03/29/2020 9:58 AM EST): Assessment & Plan (08/14/2019 2:25 PM EDT): Pt has had Asthma all his life and feels it is worsening due to seasonal allergies and he needs his 2 asthma pumps (LABA and OLGA) and a nebulizer, tubing, and Albuterol fluid, For the past three day his asthma is worse, the Pt also needs a cough suppressant, cough medicine and some prednisone, Pt was told to call back if his chest congestion continues another 4 days Constipation 08/14/2019 Assessment & Plan (03/10/2021 5:47 PM EDT): The Pt continues to experience feeling full, has excessive gas and the Pt feels bloated, the Pt is still taking (HEALTHYLAX 17 gram packet) Miralax once a day but it has not providing enough stimulation for bowel movement relief and will ask the Pt to increase his Miralax to 2 times a day and start taking bisacodyL (DULCOLAX) 5 mg EC tablet Take 2 tablets (10 mg total) by mouth 2 (two) times daily as needed for constipation (do not use with an hour of taking Milk or an Antacid and do not take longer than a week at a time for constipation), will f/u with Pt in 2 weeks to assess effectiveness of medications Assessment & Plan (10/23/2019 2:32 PM EDT): Pt stated his bowel movement are on a regular basis Assessment & Plan (10/02/2019 6:29 PM EDT): Pt has been dealing with difficulty passing stool due to the lasix he is currently talking, Pt was informed to stop taking the Lasix while he is on the abx, will reassess Pt in 2 weeks Assessment & Plan (08/14/2019 2:12 PM EDT): Pt has issue with constipation and needs a medication to get him more regular Benign tubular adenoma of large intestine 2019 Assessment & Plan (06/24/2022 9:16 AM EST): Reviewed results with Pt in person to help with his anxiety about this situation, Pt completed a colonoscopy on 09/04/2020 and had a??CECUM, POLYP, BIOPSY??(TUBULAR ADENOMA) and awaiting results from Surgical Pathology,?Gross Description: Received in formalin labeled the patient's name, medical record number and cecal polyp are 3 pieces of rosas tissue 0.3-0.6 cm which are submitted in toto.??The polyp was benign. I recommend to repeat the colonoscopy in 7 years for colon cancer screening purposes.??Used Fijian interpretor [id number] Assessment & Plan (06/16/2021 10:23 AM EST): - repeat Colonoscopy 2027 Assessment & Plan (10/14/2020 2:14 PM EDT): Reviewed results with Pt in person to help with his anxiety about this situation, Pt completed a colonoscopy on 09/04/2020 and had a CECUM, POLYP, BIOPSY (TUBULAR ADENOMA) and awaiting results from Surgical Pathology, Gross Description: Received in formalin labeled the patient's name, medical record number and cecal polyp are 3 pieces of rosas tissue 0.3-0.6 cm which are submitted in toto. The polyp was benign. I recommend to repeat the colonoscopy in 7 years for colon cancer screening purposes. Used Fijian interpretor [id number] Assessment & Plan (09/13/2020 7:30 AM EDT): Pt completed a colonoscopy on 09/04/2020 and had a CECUM, POLYP, BIOPSY (TUBULAR ADENOMA) and awaiting results from Surgical Pathology, Gross Description: Received in formalin labeled the patient's name, medical record number and cecal polyp are 3 pieces of rosas tissue 0.3-0.6 cm which are submitted in toto. The polyp was benign. I recommend to repeat the colonoscopy in 7 years for colon cancer screening purposes. Used Fijian interpretor [id number] Assessment & Plan (06/24/2020 4:13 PM EST): Pt was informed of the following message and told to call and was asked to call to make a colonoscopy appointment 06/03/20 12:29 PM Message from [facility] at [address] [place] [address] Called patient to cancel pre colon appointment, patient did not answer and there was no voicemail set up. Attempted to call patient x2 in a row and no answer either time. Patient does not need pre colon appointment, only needs to schedule Colonoscopy. No mychart message sent because at the time of the call when scheduling the pre colon appointment patient stated he does not know how to use the mychart application. Pre colon appointment cancelled. Assessment & Plan (05/18/2020 5:33 PM EST): 05/11/2020 Cardiac Referral for Clearance for Colonoscopy Attending Addendum: #LE edema -decrease amlodipine to 5mg daily ?? #HTN Fairly well controlled at home, in the 130s/90s -amlodipine as above -Lasix per nephrology -continue losartan 75mg daily -daily BP checks, and keep log -if BP increases with decreased amlodipine dose, will make further medicaiton adjustments at f/u visit ?? #Dyslipidemia with hyperTG Calculated LDL in 01/2020 was 38 on atorvastatin 80, but then up to 126 on 03/12/2020 (TG 358 at that time), direct -continue atorva 80 -add ezetemibe 10mg daily -lipid panel with direct LDL in 3 months -ASA daily is not unreasonable for a man with DM2 and overall low bleeding risk ?? #Colonoscopy clearance Generally a low-risk procedure. He has no history of arrhythmia and no clear evidence of CHF. His LE edema is more likely related to medication (amlodipine) with changes noted as above. -no cardiac contraindication to his low-risk colonoscopy -medication changes as above and will increase other anti-HTN PRN, but this should not prohibit colonoscopy I discussed the patient and was immediately available for consultation during the entire telephone/televideo visit. I agree with the assessment and plan as noted: Mr Bhardwaj is a 49 yo man with obesity, hypertension, diabetes, CKD and a h/o stroke. Agree with repeat lipid panel - he may have been off of his meds for the last one; also, needs direct LDL measurement given hx of elevated TG. If TG remain high on high-intensity statin plus addition of ezetimibe, may benefit from Lovaza or Vascepa (although the latter is often not covered by insurance). ?? Carolyn Marin MD, S [facility] Decrease amlodipine to 5mg daily (blood pressure medication) Start ezetemibe 10mg daily (cholesterol medication) Continue to check your blood pressure and if raising significantly, will make further medication adjustments, please call clinic to let us know how your blood pressure is doing. ?? OK for follow-up colonoscopy from a heart standpoint. Assessment & Plan (04/22/2020 6:55 AM EST): To: Shalini Sandoval PA-C Sent: 04/22/2020 ?? Jeovanny Loya (from the [facility]): The Pt has a past Hx of a Stroke, obese and uncontrolled diabetes and will have the Pt see Cardio in May 2020 as a precaution Thank you Deep From: Shalini Sandoval PA-C Sent: 03/30/2020 ?? 8:04 AM EST To: Deep Pruitt APRN Subject: RE: Colonoscopy referral ? Deep, Thank you so much for reaching out to nephology. I noted their medication recommendations in the referral for the nurse navigators. I don't see any cardiology progress notes, but I am not sure that he needs cardiac clearance, let me know your thoughts as you know the patient well. I am happy to move forward as you see fit. I am happy to move forward with scheduling if he does not need cardiac clearance but want to know about his glucose control. Last A1C in December was 13.7. During the bowel prep the patients sugars can fluctuate significantly and want to make sure it is safe to proceed and will have continued management from your end. Let me know your thoughts or if you would like to speak on the phone at some point to discuss further. Thanks! Shalini Assessment & Plan (03/29/2020 7:11 AM EST): Pt needs a Cardic clearance for colonoscopy, a year ago the Pt had colonoscopy at [facility] in [facility] and was told to return in a year for further surveillance because he had several polyps removed, the concern is that the Pt was recently in the ED for edema, anasarca and with NICOLAS (Cr.2.6), at discharge, Per nephrology consult, NICOLAS thought to be multifactorial from intravascular volume depletion, in part from diuresis and glucosuria. On hospital discharge his creatinine was down to 1.7; eGFR 43 with CKD stage 3b and he is currently taking Lasix 40 mg tab PO BID, and we need cardiac clearance before undergoing a colonoscopy and anesthesia Jan 2020 Echo results * Patient did not receive enhancement agent because there was no IV access. * Normal left ventricular size and systolic function. Mild concentric left ventricular hypertrophy. LVEF estimated by visual assessment was between 55-60%. No regional wall motion abnormalities. Normal diastolic function and filling pressures. Of note, the sensitivity for evaluating wall motion abnormalities is reduced due to poor acoustic windows in the apical window and lack of echocardiographic enhancing agent. * Normal right ventricular cavity size and systolic function. * Atria are normal in size. * No significant valvular abnormalities. * All visible segments of the aorta are normal in size. * IVC diameter < 2.1 cm that collapses > 50% with a sniff suggests normal RAP (0-5 mmHg, mean 3 mmHg). * No evidence of pericardial effusion. * Compared with the prior study, dated 02/02/2007, there is no significant change. Assessment & Plan (07/07/2019 5:45 AM EST): Pt is here for a PE , Labs were ordered that will be reviewed next visit, Pt has no other complaints at this time Gastroesophageal reflux disease 03/16/2019 Overview (02/06/2020): Update February 2020 by IMO Jeffrey (diagnosis update) Assessment & Plan (06/16/2021 10:26 AM EST): - continues to take PPI daily Assessment & Plan (04/23/2021 10:20 AM EST): The Pt was informed that the Upper scope biopsy results were negative for H- Pylori ?? 04/07/2021 the Pt had an Upper Endoscopy completed by Hedy Lemons Procedure: UPPER GI ENDOSCOPY; DX, W/WO SPECIMEN COLLECTION, BRUSHING/WASHING w/ biopsies Please let Pt know that his Stomach Biopsy results were negative for H-Pylori Clinical History and Impression: Preop and postop diagnosis: GERD (gastroesophageal reflux disease) ?? PATHOLOGY REPORT: ? STOMACH, BIOPSY ??- GASTRIC ANTRAL MUCOSA WITH MILD CHRONIC GASTRITIS ??- GASTRIC OXYNTIC MUCOSA WITH PROTON PUMP INHIBITOR EFFECT ??- NEGATIVE FOR HELICOBACTER PYLORI (IMMUNOHISTOCHEMISTRY) Assessment & Plan (04/13/2021 4:16 PM EST): Will ask Nurse to call the Pt and let him know his Upper scope biopsy results were negative for H-Pylori 04/07/2021 the Pt had an Upper Endoscopy completed by Hedy Lemons Procedure: UPPER GI ENDOSCOPY; DX, W/WO SPECIMEN COLLECTION, BRUSHING/WASHING w/ biopsies Please let Pt know that his Stomach Biopsy results were negative for H-Pylori Clinical History and Impression: Preop and postop diagnosis: GERD (gastroesophageal reflux disease) PATHOLOGY REPORT ? Patient: DARREL BHARDWAJ ?MR #: [id number] ([id number]) ?Submitted by: Hedy Hameed MD STOMACH, BIOPSY ??- GASTRIC ANTRAL MUCOSA WITH MILD CHRONIC GASTRITIS ??- GASTRIC OXYNTIC MUCOSA WITH PROTON PUMP INHIBITOR EFFECT ??- NEGATIVE FOR HELICOBACTER PYLORI (IMMUNOHISTOCHEMISTRY) Assessment & Plan (04/08/2021 6:22 AM EST): 04/07/2021 GI Upper Endoscopy: Findings: ?The examined esophagus was normal. ?The entire examined stomach was normal. Biopsies were taken with a cold ?forceps for Helicobacter pylori testing. ?The examined duodenum was normal. ? Impression: ?- Normal esophagus. ?- Normal stomach. Biopsied. ?- Normal examined duodenum. Recommendation: - Discharge patient to home (ambulatory). ?- Follow an antireflux regimen indefinitely. ?- Continue present medications. ?- Await pathology results. CCM: 5 minutes 04/08/2021 Deep Pruitt APRN Obstructive sleep apnea 02/08/2019 Overview (11/19/2021): -prior sleep study?where/when: + sleep apnea, begun [...] max 22, EPAP Min 10, PS 7 Assessment & Plan (11/28/2021 11:12 AM EDT): 11/16/2021 Sleep Apnea Report: IMPRESSION : ??-Obstructive [...] disordered breathing. RECOMMENDATIONS / PLAN : -Current [employer] recommendations for treatment of [...] 11/28/2021 Deep Pruitt APRN Assessment & Plan (10/07/2021 2:23 PM EDT): 10/01/21Miguel Chavis RT talked with Pt Called patient with Jose Rolon. Nancy #[id number]. Patient said that he has an old [employer] that he received in [place]. He doesn't know his mode or settings. Nor does he know his previous DME Assessment & Plan (09/10/2021 5:40 PM EDT): The Pt has an Sleep Apnea appointment on 09/24/2021 at??4:20 PM with Ryanen Ocasio MD at the [facility] at [address] [facility] Assessment & Plan (09/24/2019 3:03 PM EDT): Pt typically sleep 2-4 hours a night, meaning he can only sleep one hour at a time and then wakes up and continues this cycle all night Pt was encouraged to call the sleep Clinic so he can get the Sleep study test sooner Pt has a BMI of 40.4, spent 45 mins with Pt with a health program manager SLEEP STUDY - [facility] - [phone] Assessment & Plan (09/09/2019 3:22 PM EDT): Pt typically sleep 2.5 hours a night, Pt still has to return his sleep apnea machine to [place] before a sleep apnea clinic in [place] will talk to him, Pt has a BMI of 40.4 and PCP will put a referral in for sleep apnea for Pt today, spent 35 mins with Pt with a health program manager Diabetic foot (HC Code) (HC CODE) 02/07/2019 Assessment & Plan (06/24/2022 9:27 AM EST): The Pt continues to deal with bilateral foot pain and wears a pair of Diabetic shoes with specification ordered by his Horse Rancher Doctor Assessment & Plan (05/31/2021 2:00 PM EST): The Pt continues to deal with bilateral foot pain and needs to get a pair of Diabetic shoes with specification ordered by his Horse Rancher Doctor and will increase Gabapentin from 400 mg PO BID to 800 PO BID Assessment & Plan (01/04/2021 10:02 AM EDT): - recently seen in mid-December by Podiatry- note reviewed Assessment & Plan (10/14/2020 9:29 AM EDT): The Pt continues to deal with bilateral foot pain and needs to get a pair of Diabetic shoes with specification ordered by his Horse Rancher Doctor see below: 08/26/2020 Podiatry Note: Bilateral Feet pain -Darrel returns today for continued routine diabetic foot care. Thick dystrophic nails bilateral he is unable to manage safely on his own accord. Also complains of an incurvated right hallux nail plate that gives him mild amounts of grief. Suffering from a neuropathy bilaterally, taking 800mg gabapentin and it appears he was recently placed on cymbalta. Also using his neuropathic compounding formula from [employer] as an adjunctive therapy and likes it very much. Continuing to work on his glucose control with his pcp and wellness. Understands it is the source of his discomfort. On a prior visitation he obtained his diabetic shoegear and inserts as well as his compression stockings. -On a prior visit it was noticed he was suffering from rather severe 4th interspace maceration. He started a topical AF and a pcr was taken to observe for possible coinfection with bacteria. Results were positive for gram + bacteria and he took an oral course of doxy with good results he relates. This continues to stay clear for him. -Recently with additional pain to below his 1st metatarsalphalangeal joints and his 3rd interspaces bilateral. We had asked him to obtain some xrays and get a new pair of inserts however he has not had an opportunity to do this yet. Despite this though his symptoms have been mildly improved -He has an additional complaint of pain to the top of his left foot with additional electricity and burning symptoms coursing up and down his foot. Physical Exam General: Patient is alert aware and orientated x 3. In no apparent distress. Integument: Nails thickened bilateral. Incurvated right hallux nail plate medial and lateral. No evidence of wounds. No evidence of infection such as erythema, heat, drainage, or lymphangitis. 4th interspaces bilateral show marked improvement with minimal maceration appreciated bilateral. Vascular: Dorsalis pedis and posterior tibial pulses are palpable bilaterally. Capillary refill time is brisk and less than 3 seconds to digits bilaterally. Temperature gradients are within normal limit. Pedal hair growth present. Skin turgor within normal limits. Mild edema bilateral Musculoskeletal: Muscle power is 5/5 to lower extremity muscle groups. 5th digit bilateral cocked up and hammered at pipj. Left 1st MTP reduction in range of motion with pain to dorsiflexion and plantarflexion, pain to palpation Neurological: 10g nylon semmes brianna monofilament exam reveals sensation to 0/10 locations on the plantar feet. Vibratory examination with 128hz turning fork reveals absent proprioception to the 1st metatarsal phalangeal joint. Sharp/Dull sensation is absent. Foot Exam: -Mild peripheral edema, Continue compression stockings -onychogryphosis -Debridement -Present Q3 months -Cryptosis right hallux -Slant backs performed. He is not a candidate for a procedure at this point. We can discuss this as his glucose comes into range -4th interspace mycotic vs bacterial vs supeimposed infection bilateral -Cleared on topical treatment -Bilateral foot pain, suspect sesamoiditis and 3rd interspace neuromas. This has improved for him despite a lack of treatment -Encouraged him to still obtain his xrays -Repeat rxn for diabetic inserts and shoegear, he needs to get back into his equipment -New dorsal left midfoot pain -OA with deep peroneal nerve neruitis -Begin applying his diclofenac 1% BID to area -Again he must get into a high quality insert with supportive shoegear Assessment & Plan (07/07/2019 5:43 AM EST): Pt continues o deal with diabetic neuropathy especialy with his A1C above 10, Pt is working with his Diabetic Specialist at [facility] and has an appointment next week, will increase his Gababentin to 800 mg PO TID and assess effectiveness in one month Assessment & Plan (02/07/2019 6:48 AM EDT): Pt needs a Podiatry appointment due to toe nails need to be cut and Pt needs establish care with a Horse Rancher for his annual diabetic foot care Diabetic eye exam 02/07/2019 Assessment & Plan (06/24/2022 9:29 AM EST): The Pt stated today that he saw his Eye Doctor, unable to see event in [facility] Assessment & Plan (09/18/2020 6:10 PM EDT): Pt has complaints of vision changes and he blew a blood vessel on his sclera, 3 years ago the Pt would see his Retina Doctor who did a lazer every 6 month, Pt needs a retinal eye referral 09/18/2020 Jeovanny Lynn: I put a referral in for the Pt and lately the [facility] has not been given dates for appointments because they are so booked, will print referral and mail to Pt incase he wants to get a sooner appointment somewhere else that he will find on his own, will ask if Sandra or who she thinks it best to call the Pt and explain this situation 09/18/2020 Message sent from Leah Garcia RN Sent to Deep Powersant Patient's Sissy Rosales requesting a referral for ophthamology be issued for this patient. Previous referral has and now closed and a new one needs to be issued, to schedule appointment for an eye check up. Ms. Rosales states that patient is diabetic and is having blurry vision as well as heavy eyes, and is in need of seeing [facility]. Patient can be reached at [phone]. Ms. Rosales can be reached at the same number [phone]. Thank you Deep Assessment & Plan (05/28/2020 2:38 PM EST): Used Interpretor [id number], Pt is asking for an Diabetic Eye appointment, Pt has complaints of vision changes and he blew a blood vessel on his sclera, 3 years ago the Pt would see his Retina Doctor who did a lazer every 6 month, Pt needs a retinal eye referral Assessment & Plan (02/07/2019 6:50 AM EDT): Pt needs a Eye appointment due to vision changes and Pt needs establish care with an Eye Doctor for his annual diabetic eye exam Bilateral hip joint arthritis 02/07/2019 Assessment & Plan (10/11/2021 5:29 PM EDT): The Pt has been dealing with bilateral Hip arthritis for the past year, in the past had ordered nutrition classes and recommended weight loss with Bariatric Surgery, the Pt continues to deal with a BMI of 43-44 since 2019, the Pt needs to call the [facility] [address] [phone] Assessment & Plan (10/14/2020 2:13 PM EDT): The Pt has been dealing with bilateral Hip arthritis for the past 5 months and will order PT to help with strength training and stretching Chronic post-traumatic stress disorder (PTSD) Schizoaffective disorder, de pressive type (HC Code) (HC CODE) 01/14/2019 Need for home health care 01/01/2019 Assessment & Plan (02/07/2019 6:52 AM EDT): Pt is still in the process of establishing a Visiting Nurse for home care to help manage his multiple medications Assessment & Plan (01/04/2019 4:02 PM EDT): Pt needs a Fijian speaking Nurse to help him manage his medications, just once a week to make sure everything is ok Assessment & Plan (01/01/2019 6:48 PM EDT): Pt requesting a Visiting Nurse to help with Medication administration Type 2 diabetes mellitus wit h neurologic complication, with long-term current use of insulin 12/10/2018 Overview (12/23/2021): Pt is taking the following Diabetic medication: [...] -Pt will be called biweekly by the [facility] Nurse to review his FBS finger sticks [...] (two) times daily before breakfast and dinner. Assessment & Plan (06/24/2022 8:44 AM EST): -Mr. Bhardwaj is here for follow-up of his DMT2 care and adjustments of his medications -He has been following with the [place] [facility] team and reports taking all of [...] decided to move his family back to [facility] due to being closer to family and old friends -Pt asked for a 3 month supply of medications so he can be carried over till he meets his new PCP Latest Reference Range & Units 03/12/20 08/27/20 01/07/21 08/13/21 12/22/21 06/23/22 Hemoglobin A1c 4.0 - 5.6 % 10.4 (H) 11.6 (H) 11.3 (H) Hemoglobin A1C, POC 4.0 - 6.0 % 10.4 10.7 10.6 Assessment & Plan (05/19/2022 2:53 PM EST): Mr. Bhardwaj is here for follow-up of his DM. He has been following with the Diabetes team and reports taking all of his medication/insulin but the trouble has been maintaining a sustainable diet. He has been trying to lose weight and has successfully lost 8lbs since his last visit, but reports at times his sugar becomes too low as a result and he feels weak, especially in his legs. He was prescribed Glucerna at the last visit but was unable to obtain it from the pharmacy d/t billing issues. He also was supposed to apple picker a Dexa scanner/sensor, but he was unable to pick that up as the company would not provide it until they were sure he knew how to use them. - Counseled on risks of caloric deprivation in regards to hypoglycemia. Instructed patient to hold off on restricting his calories until he has Glucerna, and then to try that as a supplement or meal replacement strategy - Called pharmacy to clarify Glucerna issue and re-sent prescription - Community support met with patient and Dexa company to provide education and arrange delivery of Dexa scanner/sensor Assessment & Plan (04/22/2022 8:10 AM EST): The Pt continues to bring his A1C down but it is not at goal below 8 at this time Questioned Pt snacking through out the day as see by elevated Triglycerides The Pt is expecting to receive a new a blood-glucose sensor (DEXCOM G6 SENSOR) device and scanner Asked Video Editor to schedule a 1/2 hour Nurse visit to go over how to use DEXCOM G6 scanner and sensors works The goal is to set an alarm on his phone when his sugars are too high or too low and adjust his food consumption appropriately Latest Reference Range & Units 09/09/21 12/22/21 04/05/22 Hemoglobin A1c 4.0 - 5.6 % 11.5 (H) 11.3 (H) 10.3 (H) Latest Reference Range & Units 03/14/22 HDL Cholesterol > OR = 40 mg/dL 35 (L) Triglycerides <150 mg/dL 355 (H) LDL Cholesterol mg/dL (calc) 86 Non-HDL Cholesterol <130 mg/dL (calc) 133 (H) Chol/HDL Ratio <5.0 (calc) 4.8 Assessment & Plan (03/26/2022 5:22 AM EST): -Patient states he is doing well with new glucometer, understands how to use it -Taking 190 units regular insulin BID (will not change insulin dosage and will leave it for Endo to change) -BS 200-300 average, checks ACHS -Pt has his [place] [facility] appt on 04/21/2022 at 11:30 AM -The Pt continues to work on his diet and exercise and has lost 10 lbs in the last month -Pt was given a copy of the Glucerna script to bring to his Pharmacist -The Pt has not received his Glucerna, and the Pt needs it as a meal replacement with goal to loose additional weight and bring his sugars down further Assessment & Plan (02/19/2022 2:07 PM EDT): -The Pt was called by the Nurse and informed that we will order Glucerna shakes for the Pt to be taken as a snack between each meal -The Pt will continues to go to his [facility] appointments to review his Dexcom G6 numbers and make appropriate medication changes -If all that happens then the Pt can also scan before each meal, switch from taking 30 units of prandial insulin to start a Sliding Scale -Will leave note with Pt's Toddler Teacher that the Pt needs to have Provider use a Accounting Professional due to his poor Nepalese skills -The Pt has received the Dexcom G6 factory helper and scanner but still does not know how to use it as of yet Assessment & Plan (01/16/2022 7:58 AM EDT): Will ask Nurse to call Pt and let him know the following -Please call Pt and let him know that we are going to try to have the Pt start taking Glucerna shake TID as a snack between each meal -Please let the Pt know the plan below Thank you Deep Ivory: -The Pt will continues to go to his [facility] appointments to review his Dexcom G6 numbers and make appropriate medication changes -I will put the order in to have the Pt start taking Glucerna shake three times a day -If his insurance accepts this then he can stop his snacking through the day and take Glucerna instead -In between meals the Pt will scan his blood sugar before taking his Glucerna shake 3 times a day -If all that happens then the Pt can also scan before each meal, switch from taking 30 units of prandial insulin to a Sliding Scale -Sliding Scale 150-200=2u, 201-250=4u, 251-300=6u, 301-350=8u, 351-400=10u, 401- 450 call MD Thank you for your recommendations Looking forward to further communication about this Pt's care Deep 01/14/2022 Note to Deep Pruitt, From: Angie Mcghee MD Good morning, Is he willing to do that? If so, he can try the Glucerna shake and just cover with a SS before this drink to correct for highs not the full 30 units of prandial insulin that he usually uses before meals. Other thought, is that if he snacks through out the day, he can drink Glucerna instead. Angie CCM: 15 minutes 01/16/2022 Deep Pruitt APRN Assessment & Plan (01/07/2022 4:45 PM EDT): -Met with Pt and with our [facility] RN who was able to translate the concerns between PCP and Pt of the Pt having an A1C 11.3 for the past year -Reviewed Endocrine notes and will not make any changes with Pt's Diabetic meds -Pt was encouraged to go to next Endocrine Appointment so he can be taught how to use and scan his Blood sugars with Dexcom -Last appointment the Pt was asked to increase his insulin regular human CONCENTRATED 500 units/mL 180 to 190u AM and 185 to 190u PM SQ -Last appointment the Pt stated his morning sugars run between 200-300 hundred and at today's appointment the Pt had his meter showing 143-174 -Went over Daily Diet with Pt, Pt stated that he has a snack between meal that could be 3 oranges at one time, focused with Pt moderation -Will start the Pt on Glucerna to replace his lunch meal once a day as a way to bring his A1C down further (will send note to Endocrinology for review) ?? Latest Reference Range & Units 12/22/21 Hemoglobin A1c <5.7 % of total Hgb 11.3 (H) 12/24/2021 Endocrine Referral: Assessment and Plan: -Darrel is a 51 year old male patient with T2DM c/w microvascular and macrovascular disease. His diabetes is ??above goal as evidenced by recent??A1c of 11.3%, with no hypo events reported. On multiple meds to tread his diabetes, max dose of Metformin, jardiance, trulicity in top of high doses of insulin.??I have no BG data on today's encounter so unable to make changes to his management. He was encourage to use Dexcom CGM for glucose monitoring and to reach out to me next week to report BG before meals, dose of insulin administer. -I recommend continuing with metformin, jardiance, trulicity. He is using at least 480 units of insulin daily and is not on target. For this reason I will continue using u-500 insulin (380 units in total), u-500 allows injecting a??smaller volume injected,??better absorption and potentially better blood glucose control.??In top of u-500 I recommend continuing with U-100 (novolog) before meals. ??Will think about leaving him eventually with u-500 three times daily and dc novolog. -Patient is interested on bariatric surgery, explained this would be a good option, but we need to work on his glucose control so he is deemed a good candidate for surgery. -Discussed on today's visit ??treatment options, goals, risk of DM complications, and hypoglycemia management. Reviewed diabetic diet, exercise regimen. Reinforced the importance of good BS control in preventing/stabilizing DM complications. Goal A1c??around 7%, without significant hypoglycemia, pre-meal BS 80-130, 2 hrs post-prandial BS 80-180. CVD /??microvascular?risk factors ? BP:?Goal <140/90 ? Lipids:?LDL at (Target LDL <100 ). TG above target TG<150. ? Anti-plt tx: ??on ??ASA ? Last eGFR: >45--> 07/2021? Last UACR:?2020? BMI:?39? Smoking:?Non-smoker ? Retinopathy: yes ? Neuropathy: yes Recommendations: #Diabetes: 1.Continue with Humulin U500 190u??bid 2.Novolog 30??before meals + supplementary sliding [id number]-->4u, 200-249-->6u,??250-299-->8u, 300-349-->10u, >350-->12u 3.continue with ??trulicity 4.5 mg weekly, jardiance 25 mg daily and metformin 1000 mg bid 4.contact us in 1 week to report BG 5.Check BS 4X/day. Keep organized log and bring it next time.??Call [facility] for use of Dexcom CGM 6.Hypoglycemia management:??Carry glucose tablets or snacks in case of hypoglycemia. Will prescribed again free style ortega CGM today.??Rule of 15 reinforced 7.Diabetic diet, moderate intensity exercise 150 minutes/week, weight loss 5-10% of body weight. Assessment & Plan (12/31/2021 4:42 PM EDT): 12/24/2021 Endocrine Referral: Assessment and Plan: -Darrel is a 51 year old male patient with T2DM c/w microvascular and macrovascular disease. His diabetes is above goal as evidenced by recent A1c of 11.3%, with no hypo events reported. On multiple meds to tread his diabetes, max dose of Metformin, jardiance, trulicity in top of high doses of insulin. I have no BG data on today's encounter so unable to make changes to his management. He was encourage to use Dexcom CGM for glucose monitoring and to reach out to me next week to report BG before meals, dose of insulin administer. -I recommend continuing with metformin, yoshi pacheco. He is using at least 480 units of insulin daily and is not on target. For this reason I will continue using u-500 insulin (380 units in total), u-500 allows injecting a smaller volume injected, better absorption and potentially better blood glucose control. In top of u-500 I recommend continuing with U-100 (novolog) before meals. Will think about leaving him eventually with u-500 three times daily and dc novolog. ?? Patient is interested on bariatric surgery, explained this would be a good option, but we need to work on his glucose control so he is deemed a good candidate for surgery. ?? Discussed on today's visit treatment options, goals, risk of DM complications, and hypoglycemia management. Reviewed diabetic diet, exercise regimen. Reinforced the importance of good BS control in preventing/stabilizing DM complications. Goal A1c??around 7%, without significant hypoglycemia, pre-meal BS 80-130, 2 hrs post-prandial BS 80-180. ?? CVD /??microvascular?risk factors ? BP:? Goal <140/90 ? Lipids:?LDL at (Target LDL <100 ). TG above target TG<150. ? Anti-plt tx: ??on ??ASA ? Last eGFR: >45--> 07/2021? Last UACR:?2019? BMI:?39? Smoking:?Non-smoker ? Retinopathy: yes ? Neuropathy: yes ?? Recommendations: #Diabetes: 1. Continue with [id number] 190u bid 2.Novolog 30 before meals + supplementary sliding scale ?150-199-->??4??units ?200-249-->??6??units ?250-299-->??8??units ?300-349-->??10units ?>350-->?12 3.continue with trulicity 4.5 mg weekly, jardiance 25 mg daily and metformin 1000 mg bid 4.contact us in 1 week to report BG 5.Check BS 4X/day. Keep organized log and bring it next time. Call [facility] for use of Dexcom CGM 6.Hypoglycemia management: Carry glucose tablets or snacks in case of hypoglycemia. Will prescribed again free style ortega CGM today. Rule of 15 reinforced 7.Diabetic diet, moderate intensity exercise 150 minutes/week, weight loss 5-10% of body weight. Eye: F/u with ophthalmology for complete eye exam periodically. Foot care: following closely with podiatry nephropathy: follows with nephro ?? RTC in 3 months Assessment & Plan (12/23/2021 12:30 PM EDT): -Pt stated his morning sugars run between 200-300 hundred -Pt currently takes insulin regular human CONCENTRATED 500 units/mL 175 units AM and 180 units PM SQ prior to bed time -Pt was be asked to increase his Lantus from 175 to 180 units in the AM and 180 to 185 units in the PM -This Insulin dose will be revaluated at Pt's next Nurse or PCP visit Discussed the following plan with Zena SILVER our Diabetic Specialist -Remind the Pt to make a Podiatry appointment for his painful foot issues -Will talk with [facility] Nurse about the Pt and support systems may not be compliant with taking meds and Insulin on a regular basis -Will work on bring the Pt's A1C down, it has been in the 's for the past year and Pt not wanting to see [facility] or [facility] Diabetic Specialist -Will have to set up a visiting Nurse to monitor the Pt taking his Insulin and meds once a day on a daily basis -Will stop Pt's Metformin and JARDIANCE and start the Pt on dapagliflozin- metformin (XIGDUO XR) 5-1,000 mg per tablet x 2 tabs in AM -Will change the insulin regular HUMULIN R U-500, CONC, KWIK PEN to Tresiba (insulin degludec U-200) Latest Reference Range & Units 12/22/21 Hemoglobin A1c <5.7 % of total Hgb 11.3 (H) Assessment & Plan (12/08/2021 5:05 PM EDT): -The Pt is currently taking insulin regular human CONCENTRATED 500 units/mL (HUMULIN R U-500, CONC, KWIKPEN) injection pen 170 units AM and 175 units PM -Will Increase his AM insulin from 170 to 180 units and the Pt's PM insulin from 175 to 185 units -The Pt had mentioned that sometimes he does not eat as much because he wants to loose weight and then his sugars are in the 60's The Pt was asked to keep his same diet till his A1C is under control below eight and then refer the Pt to the Bariatric Doctor for weight loss -Used Accounting Professional # [id number] -Pt wished he could get his diabetic care restarted at the [facility] -Pt does not want to go to [facility] Diabetic Clinic or the [place] [facility] clinic due to not feeling comfortable and has had missed multiple appointments -The Pt continues to deal with an elevated A1C and will f/u with Pt in a month to check on sugars Results for DARREL BHARDWAJ ( ) as of 09/10/2021 17:20 ?? Ref. Range 12/10/2018 03/12/2020 01/07/2021 09/09/2021 Hemoglobin A1c <5.7 % of total Hgb 10.8 (H) 10.4 (H) 11.6 (H) 11.3 (H) Assessment & Plan (10/11/2021 4:47 PM EDT): Pt needs to be rescheduled with our [facility] Diabetic Clinic with Zena Hines PA, the Pt did not like dealing with [place] due to not feeling comfortable with the [place] Providers and has had missed multiple appointments The Pt continues to deal with an elevated A1C, Pt wished he could get his diabetic care restarted at the [facility], will refer today ?? Results for DARREL BHARDWAJ ( ) as of 09/10/2021 17:20 ?? Ref. Range 12/10/2018 03/12/2020 01/07/2021 09/09/2021 Hemoglobin A1c Latest Ref Range: <5.7 % of total Hgb 10.8 (H) 10.4 (H) 11.6 (H) 11.3 (H) 09/30/21 10:41 AM Polly Hightower, RN Message from Ryanne Ocasio MD sent at 09/30/2021 Regarding: RE: reschedule appointment I think this is his 3rd canceled appointment. I know I am booking many months out now. I would suggest he see another provider. Including Polly in this message. Thanks! Assessment & Plan (10/03/2021 11:53 AM EDT): 09/30/21 10:41 AM oPlly Hightower RN Message from Ryanne Ocasio MD sent at 09/30/2021 Regarding: RE: reschedule antisqueak applier appointment I think this is his 3rd canceled appointment. I know I am booking many months out now. I would suggest he see another provider. Including Polly in this message. Thanks! Assessment & Plan (09/10/2021 5:30 PM EDT): The Pt continues to deal with an elevated A1C, the Pt has a new patient Endocrinology appointment on 09/24/2021 at??4:20 PM with Ryanne Ocasio MD at the [facility] at [address] [place] [address], Pt wished he could get his diabetic care restarted at the [facility], Pt advised to go to his scheduled Endocrinology appointment and see how he likes the new Doctor who is a Diabetic Specialist Results for DARREL BHARDWAJ ( ) as of 09/10/2021 17:20 Ref. Range 12/10/2018 03/12/2020 01/07/2021 09/09/2021 Hemoglobin A1c Latest Ref Range: <5.7 % of total Hgb 10.8 (H) 10.4 (H) 11.6 (H) 11.3 (H) Assessment & Plan (06/16/2021 4:15 PM EST): Lab Results Component Value Date HGBA1C 10.7 02/05/2021 HGBA1C 11.6 (H) 01/07/2021 HGBA1C 10.4 08/27/2020 LDL 90 01/25/2021 MALCRR 3,278 (H) 09/16/2019 Outpatient/MARKETING AUTOMATION MANAGER meds BLOOD GLUCOSE METER (t-ArtUCH VERIO FLEX METER) device dulaglutide (TRULICITY) 4.5 mg/0.5 mL PnIj flash glucose (FREESTYLE ORTEGA 14 DAY) scanning reader FREESTYLE ORTEGA 14 DAY sensor kit insulin aspart (NOVOLOG FLEXPEN INSULIN) 100 unit/mL (3 mL) pen insulin regular human CONCENTRATED 500 units/mL (HUMULIN R U-500, CONC, KWIKPEN) injection pen JARDIANCE 25 mg tablet metFORMIN (GLUCOPHAGE) 1000 mg tablet - continues to see [facility] - recent finger stick readings 350, no symptoms of hyperglycemia - discussed with patient taking medications as prescribed as well as changing diet - recommended to reduce carb intake and simple carbs throughout the day and night and see if fasting glucose improved in morning - plans to see [place] [facility] soon Assessment & Plan (04/23/2021 10:36 AM EST): The Pt continues to work with his [facility] Diabetic Specialist and stated that his Finger sticks range between 98-160, Pt needs to get additional labs to assess kidney fx and his diabetes Assessment & Plan (01/08/2021 1:21 PM EDT): The Pt continues to deal with elevated A1C and sees his Toddler Teacher on a regular basis Results for DARREL BHARDWAJ ( ) as of 01/08/2021 13:09 Ref. Range 12/31/2019 03/12/2020 01/07/2021 Hemoglobin A1c Latest Ref Range: <5.7 % of total Hgb 13.7 (H) 10.4 (H) 11.6 (H) Assessment & Plan (10/14/2020 2:16 PM EDT): Pt stated his sugars this morning was 150 and yesterday it was 200, the pt numbers are coming under control due to the Help of Endocrinology, the Pt feels very good about his progress Assessment & Plan (09/09/2020 3:15 PM EDT): The Pt is concerned that his sugars are too high and has a f/u appointment with his Toddler Teacher on 09/29/2020 08/27/2020 Endocrine referral: Assessment and Plan: Poorly controlled T2DM. His A1C remains elevated today but his blood sugars seem to fluctuate and he has actually had a couple of low blood sugars. We discussed eating at set times, roughly the same amount of carbs and taking insulin with the sliding scale (which he has not been doing due to misunderstanding). Will increase his Trulicity and he will start taking Novolog with the SS. If his lows become more frequent he should let us know. He has significant insulin resistance so weight loss would be best for improving his blood sugars. Could also consider insulin national account manager like pioglitazone at low dose. ?? Discussed treatment options, goals, risk of DM complications, and hypoglycemia management. Reviewed diabetic diet, exercise regimen. Reinforced the importance of good BS control in preventing/stabilizing DM complications. Goal A1c around 7%, without significant hypoglycemia, pre-meal BS 80-130, 2 hrs post-prandial BS 80-180. ?? Recommendations: ?? -Continue Humulin U500 110u bid -Continue Novolog 22u with meals but add SS 250-300 take 25u 301-350 take 27u 351-400 take 29 u Over 400 take 31 u ?? -Increase Trulicity to 4.5 mg weekly -Continue Jardiance 25mg - Check BS day. Check BS before driving and eat a snack if BS <100. Keep organized log and bring it next time. Carry glucose tablets or snacks in case of hypoglycemia. - Diabetic diet, moderate intensity exercise 150 minutes/week, weight loss 5-10% of body weight. - Cholesterol above goal. Goal LDL<100, TG<150. On statin, zetia. Followed by cardiology - BP at goal. Goal BP<130/80. Slightly above goal, on meds. Managed by PCP and cardiology - Eye exam: overdue. Pt to schedule - Foot care:podiatry - Last microalbumin elevated, followed by nephrology ?? Return in about 1 month (around 09/26/2020) for Has OV Dr. Lazaro 10/02/20. Assessment & Plan (08/13/2020 5:02 AM EDT): 30 day supply meds sent in today 08/10/2020 Krystle Santos RN Spoke with pharmacist at [facility], states if PCP will send scripts for 30 day supply instead of 90 day supply, they can prepare blister packs for pt to take his meds once his 90 day supply runs out. Will forward to PCP. CCM: 5 minutes Assessment & Plan (07/01/2020 5:18 PM EST): Pt had blood sugars of 400, 328, 234 and Spent 10 mins talking with Pt about a diabetic diet and quantity of food that he consumes on a daily basis, the Pt's stated that she gives the Pt a serving spoon of each item at every meal, recommended the Pt's to give him 3/4th of a serving spoon of each item at dinner and see how that affects his sugars and then try half of a serving spoon and see how that affects his sugars, will call Pt in a week and see how his sugars are doing Assessment & Plan (06/24/2020 4:15 PM EST): Spent 10 mins talking with Pt about a diabetic diet where the Pt is recommended to consume fruit, veg, protein and whole grain food instead of processed foods or soft drinks and to increase their Physical exercise to at least 30 mins a day where Pt has a light sweat with the ultimate goal of losing weight and lowering their blood sugars and dropping their A1C to between 7 or 8 and talked through health program manager [id number] that the Pt has to have the same amount of calories every meal so his sugars can stabilize Morning sugars 06/24/2020 was 119, 06/23/2020 was 253, was 349, Assessment & Plan (06/21/2020 6:52 AM EST): Images from the original note were not included. 06/15/2020 Endocrinology Note: Isha Carmen APRN [place], Deep Pope, JOHN Adame, I would not stop the Jardiance or Trulicity ??due to Darrel's h/o stroke. Both of these medications have been shown to reduce risk for future cardiovascular events. Unfortunately due to his lack of blood sugar control he needs a multi- drug regimen at this time. With weight loss he may be able to cut back on insulin. Isha Sullivan Assessment & Plan (06/10/2020 4:15 PM EST): Pt c/o??today??of having sugars at 300, 200 previously the Pt has been only consuming Ensure 3 times a day??for his daily nutrition??and??recently??the Pt only??had Ensure for??his??Breakfast and??then??had regular food for Lunch and Dinner??(Chicken, beef, pork, potatoes, etc.,??as a result his sugars are higher??than normal, last visit with Pt his Insulin CONCENTRATED 500 units/mL (HUMULIN R U-500, CONC, KWIKPEN) injection pen??Inject??105??Units under the skin 2 (two) times daily before breakfast and dinner, will increase his insulin another 5 units to 110 and send message to his correctional substance abuse counselor Isha Carmen APRN??with [place] [facility] Assessment & Plan (05/28/2020 3:01 PM EST): Pt c/o today of having sugars at 220, 170 previously the Pt has been only consuming Ensure 3 times a day for his daily nutrition and recently the Pt only had Ensure for his Breakfast and then had regular food for Lunch and Dinner (Chicken, beef, pork, potatoes, etc., as a result his sugars are higher than normal, last visit with Pt his Insulin CONCENTRATED 500 units/mL (HUMULIN R U-500, CONC, KWIKPEN) injection pen Inject 90 Units under the skin 2 (two) times daily before breakfast and dinner but the Pt stated he was told to raise it to 100, the Pt has been taking 100 units for the last week and had BS of 220, 170, will increase his insulin another 5 units to 105 and send message to his correctional substance abuse counselor Isha Carmen APRN with [facility] ?? Assessment & Plan (04/08/2020 6:17 PM EST): Pt c/o today of having sugars at 240, previously the Pt has been only consuming Ensure 3 times a day for his daily nutrition and recently the Pt only had Ensure for his Breakfast and then had regular food for Lunch and Dinner (Chicken, beef, pork, potatoes, etc., as a result his sugars are higher than normal Pt is under the care of Isha Carmen APRN with [facility] and was last prescribed insulin regular human CONCENTRATED 500 units/mL (HUMULIN R U-500, CONC, JUDITHIKPEN) injection pen Inject 85 Units under the skin 2 (two) times daily before breakfast and dinner, to day the Pt will increase his insulin from 85 u to 90 and f/u with Pt in a week and inform Isha Carmen APRN of situation Assessment & Plan (03/29/2020 10:01 AM EST): 02/19/2020 was the Pt last Podiatry appointment: Integument: Nails thickened bilateral. Incurvated right hallux nail plate medial and lateral. No evidence of wounds. No evidence of infection such as erythema, heat, drainage, or lymphangitis. 4th interspaces bilateral show maceration, scaling, no signs of bacteria cellulitic infection however. Vascular: Dorsalis pedis and posterior tibial pulses are palpable bilaterally. Capillary refill time is brisk and less than 3 seconds to digits bilaterally. Temperature gradients are within normal limit. Pedal hair growth present. Skin turgor within normal limits. Mild edema bilateral Musculoskeletal: Muscle power is 5/5 to lower extremity muscle groups. 5th digit bilateral cocked up and hammered at pipj. Left 1st MTP reduction in range of motion with pain to dorsiflexion and plantarflexion, pain to palpation Neurological: 10g nylon semmes brianna monofilament exam reveals sensation to 0/10 locations on the plantar feet. Vibratory examination with 128hz turning fork reveals absent proprioception to the 1st metatarsal phalangeal joint. Sharp/Dull sensation is absent. Results for DARREL BHARDWAJ ( ) as of 03/29/2020 09:47 Ref. Range 03/12/2020 08:09 Neutrophils Absolute Latest Ref Range: 1,500 - 7,800 cells/uL 9,116 (H) Lymphocytes Absolute Latest Ref Range: 850 - 3,900 cells/uL 3,081 Monocytes (Absolute) Latest Ref Range: 200 - 950 cells/uL 1,278 (H) Eosinophils Absolute Latest Ref Range: 15 - 500 cells/uL 653 (H) Results for DARREL BHARDWAJ ( ) as of 03/29/2020 09:47 Ref. Range 02/06/2020 07:18 03/12/2020 08:09 Hemoglobin A1c Latest Ref Range: <5.7 % of total Hgb 10.4 (H) Parathyroid Hormone, Intact Latest Ref Range: 14 - 64 pg/mL 64.2 74 (H) Vitamin O53-Anrtxqm Latest Ref Range: 20 - 50 ng/mL 9 (L) Assessment & Plan (03/15/2020 5:58 AM EST): The Pt is continuing to bring down his A1C Results for DARREL BHARDWAJ ( ) as of 03/15/2020 05:45 Results for DARREL BHARDWAJ ( ) as of 03/15/2020 05:45 Ref. Range 12/10/2018 03/07/2019 09/16/2019 12/31/2019 03/12/2020 Hemoglobin A1c Latest Ref Range: <5.7 % of total Hgb 10.8 (H) 13.3 (H) 12.6 (H) 13.7 (H) 10.4 (H) Assessment & Plan (03/11/2020 2:59 PM EST): The Pt saw our Diabetic Specialist Provider on 03/04/2020 At today's appointment the Pt Currently taking: Trulicity 1.5mg Novolog 22 units with meals TID Humulin U500 85 units BID with B and D. Metformin- pt reports taking, It was clarified with Pt to stop taking the Metformin Jardiance- 25 mg PO QD The Pt's blood sugar today was 130, verified with Pt that he was taking this medication Pt's Diabetic care will be transferred over to [facility] and he has the following appointment: 03/27/2020 11:00 AM with Julia Ceja RD at the [facility] at [address] Assessment & Plan (02/14/2020 4:56 PM EDT): Patient called and stated he's a diabetic and was advised to speak with his pcp Deep if anything was wrong. He stated he woke up with a small cut in right foot on the small toe. I did offer the CC but stated he would like to speak with his pcp first [phone] (macedonian speaking) Assessment & Plan (11/13/2019 7:10 PM EDT): Pt asked to have his insulin and strips ordered that was forgotten to do when he had his diabetic appointment Assessment & Plan (09/26/2019 9:55 AM EDT): Pt is currently working with the wellness clinic and feels better that his numbers are getting better, last night sugars were 200. Pt will continue to work with the Wellness clinic with goal to get his A1C below 8 Results for DARREL BHARDWAJ ( ) as of 09/19/2019 07:04 ?? Ref. Range 09/16/2019 13:30 Hemoglobin A1c Latest Ref Range: <5.7 % of total Hgb 12.6 (H) Assessment & Plan (09/19/2019 7:18 AM EDT): Pt continues to have an elevated A1C but it is starting to come down with the Help of the Wellness Clinic Results for DARREL BHARDWAJ ( ) as of 09/19/2019 07:04 Ref. Range 03/07/2019 14:06 09/16/2019 13:30 Hemoglobin A1c Latest Ref Range: <5.7 % of total Hgb 13.3 (H) 12.6 (H) Results for DARREL BHARDWAJ ( ) as of 09/19/2019 07:04 Ref. Range 09/16/2019 13:30 Creatinine, Urine, Random Latest Ref Range: 20 - 320 mg/dL 105 Microalbumin, Urine Latest Ref Range: See Note: mg/dL 344.2 Microalbumin/Creat Ratio Latest Ref Range: <30 mcg/mg creat 3,278 (H) Results for DARREL BHARDWAJ ( ) as of 09/19/2019 07:04 Ref. Range 09/16/2019 13:30 pH: Latest Ref Range: 5.0 - 8.0 5.5 Protein, UA Latest Ref Range: NEGATIVE 3+ (A) Glucose, UA Latest Ref Range: NEGATIVE 3+ (A) Results for DARREL BHARDWAJ ( ) as of 09/19/2019 07:04 Ref. Range 09/16/2019 13:30 Sodium Latest Ref Range: 135 - 146 mmol/L 135 Potassium Latest Ref Range: 3.5 - 5.3 mmol/L 5.4 (H) Chloride Latest Ref Range: 98 - 110 mmol/L 98 CO2 Latest Ref Range: 20 - 32 mmol/L 28 BUN Latest Ref Range: 7 - 25 mg/dL 26 (H) Creatinine Latest Ref Range: 0.60 - 1.35 mg/dL 1.12 BUN/Creatinine Ratio Latest Ref Range: 6 - 22 (calc) 23 (H) eGFR (NON -Kosovan) Latest Ref Range: > OR = 60 mL/min/1.73m2 77 eGFR (Afr Amer) Latest Ref Range: > OR = 60 mL/min/1.73m2 89 Glucose Latest Ref Range: 65 - 99 mg/dL 246 (H) Calcium Latest Ref Range: 8.6 - 10.3 mg/dL 10.6 (H) Microalbumin/Creat Ratio Latest Ref Range: <30 mcg/mg creat 3,278 (H) Assessment & Plan (09/09/2019 2:50 PM EDT): Pt is currently working with the wellness clinic and feels his numbers are get better and he fills better too last night sugars were 200. Pt will continue to work with the Wellness clinic Assessment & Plan (07/07/2019 5:41 AM EST): Pt came in as requested by PCP concerned that his blood sugars are still elevated, Pt is currently seeing our Diabetic Specialist CRULLER MAKER at [facility], talking with CRULLER MAKER on phone the Pt has developed an insulin resistance issues and she continues to modulate his medications and encourage the Pt to work on diet and exercise, the Pt's next appointment with our Diabetic Specialist NO is on 07/12/2019 Lab Results Component Value Date ?? HGBA1C 13.7 05/30/2019 ?? HGBA1C 13.9% 05/22/2019 ?? HGBA1C 13.3 (H) 03/07/2019 ?? HGBA1C 10.8 (H) 12/10/2018 Assessment & Plan (07/02/2019 9:08 AM EST): Pt continues to have an A1C above 10, Pt needs to meet with the [facility] Nurse with the goal to bring his A1C down further On 07/01/2019 Pt had an appointment with an Eye Doctor: Thank you for referring Darrel Bhardwaj to me for evaluation. Below are the relevant portions of the exam, along with my assessment and plan of care. # Diabetes with mild retinopathy both eyes - on insulin - importance of good bp/bg discussed Lab Results Component Value Date ?? HGBA1C 13.7 05/30/2019 ?? HGBA1C 13.9% 05/22/2019 ?? HGBA1C 13.3 (H) 03/07/2019 ?? HGBA1C 10.8 (H) 12/10/2018 Pt A1C goal is 7.5, Fingerstick goals 120-140, only increase one drug a time per NV if not reaching goal Pt is to scheduled to meet with NV weekly with goal to have A1C 7 and Fingersticks 110-140 Insulin degludec (TRESIBA FLEXTOUCH U-200) 200 unit/mL (3 mL) pen 160 Units Nightly 1st drug to increase is Metformin Hcl 850 Mg Oral Tablet PO BID -Increase Metformin from Hcl 850 mg BID PO to 1000mg BID PO 2nd drug to increase is Glipizide from 10mg PO OD to: -Glipizide 10mg PO OD 30 mins prior to breakfast and Glipizide 5mg PO OD 30 mins prior to dinner Assessment & Plan (03/16/2019 5:56 AM EST): Pt's sugars are starting to come down between 250 - 300, Pt is now do a ham and cheese sandwich around 7 pm which covers his appetite for the evening, will prescribe Glucerna as a potential 7 pm snack and in time use the Glucerna as a meal replacement as his sugars improve, Pt was currently taking TRESIBA FLEXTOUCH U-200 at 147 units will increased to 155 units, Pt requesting to have his insulin increased, Pt is becoming more comfortable with Insulin-calorie consumption-exercise ratio, Pt will continue to see Diabetic Clinic at [facility] for additional medication adjustments and will see the Pt in one month Assessment & Plan (02/07/2019 7:09 AM EDT): Pt continues to have fasting blood sugars of 400, Pt stated that he eats 4 times a day which includes a 9 pm snack consistent of of fruit and fruit juices, Pt was instructed it would be better to do a ham and cheese sandwich around 7 pm which should cover his appetite for the evening, will prescribe Glucerna as a potential 7 pm snack and in time use the Glucerna as a meal replacement as his sugars improve, unsure if his insurance will pay for the Glucerna, Pt was currently taking TRESIBA FLEXTOUCH U-200 140 units will increased to 145 units, Pt will continue to see Diabetic Clinic at [facility] and re-evaluate Pt care in one month Assessment & Plan (01/04/2019 4:00 PM EDT): Pt's last A1C was 10.8 Pt stated his Sugar this AM was [address] Joyner we agreed to have Pt is to take of Lantus 45 units HS and Before each meal take a finger stick, use the sliding scale and take Humulin R 100u between 150-200=2u, 201-250=4u, 251-300=6u, 301-350=8u, 351- 400=10u, 401-450=12u?? Will see Pt in 2 days for further assessment and instructions Assessment & Plan (01/01/2019 6:51 PM EDT): Pt's last A1C was 10.8 Pt stated his Sugar this AM was [address] Joyner we agreed to have Pt is to take of Lantus 45 units BID and Before each meal take a finger stick, use the sliding scale and take Humulin R 100u between 2u - 12u Will see Pt in 2 days for further assessment and instructions Assessment & Plan (12/18/2018 10:00 AM EDT): Poorly controlled at present. Took lantus for a couple of days, but sugars were really high so went back to using humulin R 100+ units TID. Increase Lantus to 80 units. Decrease humulin R to 40-50 units. TID F/U with Jenniffer next week. Hypertension 12/10/2018 Assessment & Plan (06/24/2022 8:35 AM EST): -The Pt stated that he was in such a hurry to come in the Clinic that he forgot to take his B/P medication today -Today the Pt had a HTN reading of 167/93 and needs to be below 140/80 -Pt currently denies experiencing any pain or tightness of chest, blurry vision, dizziness, headache, SOB, or being diaphoretic Assessment & Plan (03/02/2022 8:58 AM EDT): 02/15/2022 Cardiology Note: Assessment and Plan: 51 year old with HTN, presumed HTN associated CP, h/o CVA without residual deficits, dyslipidemia associated with hypertriglyceridemia currently on statin and zetia, REGI, asthma/COPD, poorly controlled IDDM (A1C 11% 12/2021) c/b significant proteinuric CKD 3a with baseline creatine ~1.5, obesity with BMI 40 presenting to clinic for regularly scheduled follow up. ?? #TAYLOR/Abdominal distention On exam today the patient is euvolemic based on clear lungs and minimal to no TAYLOR. Despite my telling him that I do not believe his legs are edematous both he and believe there is some swelling there. He does endorse abdominal distention which I cannot comment on as I have not see him before. His JVP was extremely hard to discern given neck habitus. He unfortunately does not measure his weight daily but he believes his dry weight is ~245 lbs. Today he is 257 lbs. BP 134/86 and satting 95% on RA. The patient's last TTE on 01/2020 was normal with LVEF 55-60% and filling pressures were normal. Patient is obese, has REGI/COPD and thus he has pHTN vs obesity vs RH dysfunction to account for TAYLOR and abdominal distention. I do not currently believe he has a cardiac etiology of volume overload. We will proceed with NTproBNP, TTE,. My original advice was IF NTproBNP is elevated today and his Cr and K are stable I will call him this evening and we will proceed with 3-4 days of BID Lasix provided he will weight himself daily. However he saw nephrology today who told him to start Lasix 80mg PO BID for TAYLOR which patient did not relay tome. I will call him and ask to increase Lasix 80 PO BID given renal's request I have also prescribed a scale to his pharmacy so he may have financial assistance with purchasing this. PLAN - Lab check today including NT proBNP, BMP for K and Cr and Mg - TTE to reassess diastology, RV size and function, mPA size and tircupid/pulmonic valve assessment - Lasix 80mg PO BID for now per renal's assessment of volume status - continue Aldactone 25 daily for dual nephron inhibition of Na intake hopefully to improve free water removal/excretion ?? #HTN 24 hr ABPM which he unfortunately only wore for 8 hrs on 11/17/21 and average BP 119/74 although of note no nighttime BP was measured. BP 130s/80s today While I would tend to prefer 120s/70s (per SPRINT and subset population of ACCORD trial) at this time given possible volume overload and the increasing of Lasix to 80 BID we will see patient back in 6 weeks and determine whether he requires further BP control once euvolemic. I think this may be the best course of action given on 01/06/22 during an outpatient visit BP well controlled to 111/66 making it clear that his current regimen works well for him. - continue Aldactone 25 daily - continue Losartan 50 BID - continue Carvedilol 25 BID - patient is reminded today that he should be measuring home BP and bringing in either home machine or BP log. ?? #Palpitations C/b rapidly transient chest tightness. TTE and 10d-event monitor has been ordered. I do not suspect the patient has an arrhythmia that will differ from current management. However since he has ALL risk factor for AF/Aflutter including obesity, HTN, REGI/COPD it is best to ensure these episodes are 2/2 to an arrhythmia that requires stroke prophylaxis PLAN - 10d monitor to be mailed to his home - patient is aware of this will await outpatient tele. He know he is elisha wear this continuously for the instructed amount of time Patient staffed with Dr. Tania LANZA in 6-8 weeks to be seen by his hitch technician Dr. Newberry. ?? Attending Addendum: I have seen and examined the patient and agree with the findings, assessment and plan as noted with the following additions/modifications: Mr Bhardwaj is a 51 yo man with hypertension, diabetes, and poorly controlled DM with CKD; also with obesity. His BP is decently well-controlled. He would benefit from a GLP1a but given that he is on insulin and will need close glucose checks, will defer to his PCP. Otherwise, plan for event monitor to work-up palpitations. CCM: 10 minutes 03/02/2022 Deep Pruitt APRN Assessment & Plan (10/14/2021 2:21 PM EDT): 09/24/2021 Cardiology Referral Note: ASSESSMENT/PLAN: Blood pressure is above goal of < 130/80. He recently had 24h ambulatory blood pressure monitor which showed BP averaging 150s systolic and ranging from 105-198/57-113. He tends to have BPs controlled/mildly elevated in the morning or afternoon, which then spike in the evening. Mr. Bhardwaj reports this is related to anxieties surrounding auditory/visual hallucinations at night. -BP this morning was 174/109 taken before medications. Other BPs taken in the mornings after medications range 120-130s/90s. -Plan: 1. Immediate plan: ?? Resume spironolactone 25 mg in the evening. ?? Continue tracking BPs and HRs at home ?? Follow-up visit in 2 weeks 2. Future considerations: ?? Consider trial of hydralazine in the evening ?? Consider resuming amlodipine at lower dose if TAYLOR resolves given history of tolerating medication 3. To optimize lifestyle factors: ?? Weight loss, consider bariatric surgery ?? Continue to reduce sodium intake ?? Follow-up with sleep medicine CCM: 15 minutes 10/14/2021 Deep Pruitt APRN Assessment & Plan (09/12/2021 4:18 PM EDT): 08/20/2021 Milton Reeves, PharmD ASSESSMENT/PLAN: -Blood pressure is above goal of < 130/80. At his last visit his 24h ambulatory blood pressure monitor was assessed, showing BP averaging 150s systolic and ranging from 105-198/57-113. Today his reports BPs averaging 141/91 in the morning, 129/87 in the afternoon, and increasing to 179/95 at night. Medication reconciliation was performed and was unable to find his spironolactone during our visit, she is not sure that he is on this. I contacted [facility] pharmacy and they reported that on 06/28 and on 08/06 he was mailed 100 mg tablets with instructions to take 100 mg daily and 25 mg tablets with instructions to take 25 mg BID. BMP from 08/10/21 shows elevated Scr at 1.94. Plan: 1. Immediate plan: ?? Remain off of spironolactone for right now, routed message to provider for recommendation ?? Continue tracking BPs and HRs at home ?? Follow-up visit in 2 weeks 2. Future considerations: ?? Consider trial of hydralazine in the evening ?? Consider resuming amlodipine at lower dose if TAYLOR resolves given history of tolerating medication 3. To optimize lifestyle factors: ?? Weight loss, consider bariatric surgery ?? Continue to reduce sodium intake ?? Follow-up with sleep medicine CCM: 10 minutes 09/12/2021 Deep Pruitt APRN Assessment & Plan (08/15/2021 8:23 AM EDT): 08/07/2021 Cardiology Referral Note: ASSESSMENT/PLAN: Blood pressure is above goal of < 130/80. Since previous visit, he has had a 24h blood pressure monitor assessment. Monitor showed highly variable and poorly controlled BP averaging 150 systolic, ranging from 105-198 systolic and 57-113 diastolic. Patient was not home at the time of visit and additional BP readings could not be reported today. He to report painful TAYLOR, with not much improvment from previous. BMP from yesterday shows elevated Scr at 1.94. Plan: 1. Immediate plan: ?? Continue current medications ?? Continue tracking BPs and HRs at home ?? Follow-up visit in 2 weeks 2. Future considerations: ?? Consider resuming amlodipine at lower dose if TAYLOR resolves given history of tolerating medication ?? Consider trial of hydralazine in the evening 3. To optimize lifestyle factors: ?? Weight loss, consider bariatric surgery ?? Continue to reduce sodium intake ?? Follow-up with sleep medicine CCM: 08/15/2021 Deep Pruitt APRN ?? Assessment & Plan (08/06/2021 12:49 PM EDT): Will ask Nurse to call Pt to schedule a Pharmacist HTN visit Please ask Pt to return a call back to Fani Heath PharmD at [phone] 08/04/21 Fani Heath PharmD called Pt Called patient for scheduled pharmacist HTN visit. I was not able to reach patient and LVM requesting a call back. ID [id number] assisted call. Of note, appears patient was dropping off 24 hr BP monitor today so will look for those results to assist in further BP control recommendations. Fani Heath, Diane Ramon Willson. Benton, lopez presi??n arterial no estaba joselin controlada en el monitor de presi??n arterial de lopez casa. Nos gustar??a que love a los farmac??uticos, quienes pueden ayudarlo a manejar esto. La remisi??n se coloc?? en lopez ??ltima visita con el Dr. Newberry y deber??a estar visible en MyChart. Nos gustar??a que por favor los llame y programe sandee jill. Por favor hazme saber si tienes preguntas. ?? Hello Mr. Bhardwaj, your blood pressure was not well-controlled on the home blood pressure monitor. We would like for you to see the pharmacists, who can help manage this. The referral was placed at your last visit with Dr. Newberry and should be visible in [facility]. We would like you to please call them and set up an appointment. Please let me know if you have any questions. Assessment & Plan (08/02/2021 3:24 PM EDT): The Pt took his B/P today and it was 127/94 with a pulse of 103, Pt denies experiencing any chest pain or tightness of chest, blurry vision, dizziness, headache, SOB, or being diaphoretic, the last time the Pt had chest pain with SOB was a week ago since the following medication changes were made: -Change losartan 100mg once daily to losartan 50mg twice a day -Continue carvedilol 25mg twice a day 07/13/2021 Cardiovascular F/U Note Assessment and Plan: Cardiovascular problem list: # HTN, worse nocturnally ?With associated chest pain and dyspnea # h/o CVA (NOT [place] -- historical charting error) # Dyslipidemia with hyperTG ?Calculated LDL in 01/2020 was 38 on atorvastatin 80, but then up to 126 on 03/12/2020 (TG 358 at that time) ?? Cardiovascular-adjacent problems: # REGI # DM2, poorly-controlled # Obesity (BMI 41) # CKD ?? Assessment: While Mr Bhardwaj's chest pain was at first concerning, I am quite convinced by his and his 's report that the chest pain temporally correlates with his uncontrolled blood pressures in the 180s/90s in the evenings. His shortness of breath also is predominantly worse in the evening. It is quite conceivable that uncontrolled blood pressure is responsible for the chest pain, so this needs to be controlled. His daytime blood pressure seems to in fact be well controlled, being 102/69 in clinic today. We will split and re-time his losartan to twice a day for better evening control. We may have to add another agent in addition to the carvedilol and amlodipine. We will enroll him in the pharmacy HTN program. No stress test is indicated unless he continues to have nocturnal chest pain despite BP control. ?? Plan: ?? Change losartan 100mg once daily to losartan 50mg twice a day ?? Continue carvedilol 25mg twice a day ?? Continue amlodipine 10mg daily ?? I have placed an ambulatory referral to pharmacy's outpatient hypertension follow up program so he can be closely monitored and we can figure out if his nocturnal hypertension is sufficiently controlled on the above regimen ?? Continue remaining cardiac medications at current doses ?? If he feels his TAYLOR is worsening again, have low threshold to increase dose of furosemide to 80mg daily ?? Consider TTE at next visit ?? Continue aspirin 81mg daily given history of CVA ?? Continue ezetimibe given HLD and HTG ?? Plan to repeat lipid panel in the future when blood sugar better controlled, if TG remains >200 fasting, would Rx Lovaza. At this point his TG will be very elevated given his blood sugar (A1c >11) ?? We have ordered 24 ambulatory blood pressure monitoring to see the variation in BP with time of day on the revised BP regimen ?? Continue CPAP and supplemental O2 from pulmonology ?? Post-clinic follow-up tasks: none RTC in 3 months ?? It was a pleasure to see Darrel Bhardwaj in follow-up. The patient was seen and discussed with cardiology attending Dr Marin. ?? Mariah Newberry MD MPH PGY-4 ?? Attending Addendum: ?? I have seen and examined the patient and agree with the findings, assessment and plan as noted with the following additions/modifications: Mr Bhardwaj is a 51 yo man with hypertension with persisting dyspnea, mostly at night, and occasional chest pain. It seems his BP is very labile - low in the daytime and much higher at night. This coincides with drops in his O2 level. He is on CPAP and awaiting oxygen supplementation, which has yet to start. I suspect the dyspnea is secondary to hypoxia and BP elevations. He was not interested in a 24 hour monitor but was interested in following with our pharmacists. Agree with splitting up losartan to twice a day. Continue other medications. Assessment & Plan (08/01/2021 6:24 AM EDT): Cardiac Referral Note: Assessment and plan: Blood pressure is above goal of < 130/80. At his last CV visit on 07/06 he reported large variability in blood pressure readings, being in the 100s/60-70s in the morning and up to the 180-190s/90s in the evenings. At that visit his losartan was changed from 100 mg daily to 50 mg BID. On 07/13 his amlodipine was discontinued by nephrology and furosemide was increased to 80 mg daily due to TAYLOR. Today his reports morning BPs of 120-130s/80s and evening pressures of 150s/80-90s. He continues to endorse TAYLOR today, slightly improved but still painful. ?? Plan: 1. Immediate plan: ?? Continue current medications ?? Continue tracking BPs and HRs at home ?? Messaged to provider to ensure patient can obtain supplemental oxygen ?? Follow-up visit in 2 weeks ?? 2. Future considerations: ?? 24-hour ABPM ?? Consider resuming amlodipine at lower dose if TAYLOR resolves given history of tolerating medication ?? Consider trial of hydralazine in the evening ?? 3. To optimize lifestyle factors: ?? Weight loss, consider bariatric surgery ?? Continue to reduce sodium intake ?? Follow-up with sleep medicine CCM: 10 minutes 08/01/2021 Deep Pruitt APRN Assessment & Plan (07/21/2021 4:10 PM EDT): 07/13/2021 Cardiovascular F/U Note Assessment and Plan: Cardiovascular problem list: # HTN, worse nocturnally With associated chest pain and dyspnea # h/o CVA (NOT [place] -- historical charting error) # Dyslipidemia with hyperTG Calculated LDL in 01/2020 was 38 on atorvastatin 80, but then up to 126 on 03/12/2020 (TG 358 at that time) ?? Cardiovascular-adjacent problems: # REGI # DM2, poorly-controlled # Obesity (BMI 41) # CKD ?? Assessment: While Mr Bhardwaj's chest pain was at first concerning, I am quite convinced by his and his 's report that the chest pain temporally correlates with his uncontrolled blood pressures in the 180s/90s in the evenings. His shortness of breath also is predominantly worse in the evening. It is quite conceivable that uncontrolled blood pressure is responsible for the chest pain, so this needs to be controlled. His daytime blood pressure seems to in fact be well controlled, being 102/69 in clinic today. We will split and re-time his losartan to twice a day for better evening control. We may have to add another agent in addition to the carvedilol and amlodipine. We will enroll him in the pharmacy HTN program. No stress test is indicated unless he continues to have nocturnal chest pain despite BP control. ?? Plan: ?? Change losartan 100mg once daily to losartan 50mg twice a day ?? Continue carvedilol 25mg twice a day ?? Continue amlodipine 10mg daily ?? I have placed an ambulatory referral to pharmacy's outpatient hypertension follow up program so he can be closely monitored and we can figure out if his nocturnal hypertension is sufficiently controlled on the above regimen ?? Continue remaining cardiac medications at current doses ?? If he feels his TAYLOR is worsening again, have low threshold to increase dose of furosemide to 80mg daily ?? Consider TTE at next visit ?? Continue aspirin 81mg daily given history of CVA ?? Continue ezetimibe given HLD and HTG ?? Plan to repeat lipid panel in the future when blood sugar better controlled, if TG remains >200 fasting, would Rx Lovaza. At this point his TG will be very elevated given his blood sugar (A1c >11) ?? We have ordered 24 ambulatory blood pressure monitoring to see the variation in BP with time of day on the revised BP regimen ?? Continue CPAP and supplemental O2 from pulmonology ?? Post-clinic follow-up tasks: none RTC in 3 months ?? It was a pleasure to see Darrel Bhardwaj in follow-up. The patient was seen and discussed with cardiology attending Dr Marin. ?? Mariah Newberry MD MPH PGY-4 ?? Attending Addendum: ?? I have seen and examined the patient and agree with the findings, assessment and plan as noted with the following additions/modifications: Mr Bhardwaj is a 51 yo man with hypertension with persisting dyspnea, mostly at night, and occasional chest pain. It seems his BP is very labile - low in the daytime and much higher at night. This coincides with drops in his O2 level. He is on CPAP and awaiting oxygen supplementation, which has yet to start. I suspect the dyspnea is secondary to hypoxia and BP elevations. He was not interested in a 24 hour monitor but was interested in following with our pharmacists. Agree with splitting up losartan to twice a day. Continue other medications. Assessment & Plan (06/16/2021 4:14 PM EST): Antihypertensives Start End carvediloL (COREG) 25 mg Immediate Release tablet 05/31/2021 11/27/2021 Sig - Route: Take 1 tablet (25 mg total) by mouth 2 (two) times daily with breakfast and dinner. - Oral furosemide (LASIX) 20 mg tablet 03/10/2021 09/06/2021 Sig - Route: Take 3 tablets (60 mg total) by mouth daily. - Oral losartan (COZAAR) 100 mg tablet 01/29/2021 Sig - Route: TAKE 1 TABLET (100 MG TOTAL) BY MOUTH DAILY. - Oral spironolactone (ALDACTONE) 100 mg tablet 05/31/2021 11/27/2021 Sig - Route: Take 1 tablet (100 mg total) by mouth daily. Take Spirolactone 100 mg PO QD - Oral Patient has DM, CKD, or cardiovascular disease and BP goal is < 130/80 If BP not at goal, please make the following changes: no changes made today Assessment & Plan (05/31/2021 2:02 PM EST): Will ask Nurse to call Pt and to explain medication changes Received a message from Ricarda Boone recommending that the Pt's should be given Aldactone PO QD so now the Pt will take aldactone to 100 mg daily and will increase his Carvedilol 18.75 mg to 25 mg IR tablet PO BID Assessment & Plan (03/28/2021 6:33 AM EST): Received a message from Ricarda Boone recommending that the Pt's should increase the aldactone to 50 mg daily rather than BID dosing. If his edema is a real issue you can also treat with lasix 20 mg daily till edema is gone. Jeovanny Duncan: Please call Pt and let him know that he needs to take the following medication for his lower leg edema, HTN Pt's will now take Losartan 100 mg PO QD, Carvedilol 18.75 mg IR tablet PO BID and Spirolactone 50 mg PO QD and Lasix 20 mg PO QD and I will order for a visiting Nurse to pour his weekly meds Thank you Deep Assessment & Plan (03/26/2021 2:23 PM EST): Images from the original note were not included. 03/26/2021 Deep Pruitt APRN Shirali, Anushree, MD Hello Dr Shirali, Anushree: -Current B/P reading 148/88, the Pt continues to deal with bilateral lower extremity edema and will reorder Compression sleeves today -The Pt's currently taking Losartan 100 mg PO QD and at the Pt's last visit the Pt had his Carvedilol increased to 12.5 + 6.25 = Carvedilol 18.75 mg IR tablet PO BID and at todays visit the Pt's Spirolactone was increased from 25 mg PO OD to ?? 25 mg PO BID, -Pt has a B/P cuff at home where his B/P can be monitored on a daily basis by his , will ask our [facility] Nurse to call Pt and verify their understanding of when and how much to take with his increasing HTN medications, will send message to Dr Du for further instruction and f/u with Pt in a month Assessment & Plan (03/25/2021 7:40 AM EST): The Pt's current B/P reading 148/88, currently taking Losartan 100 mg PO QD and at the Pt's last visit the Pt had his Carvedilol increased to 12.5 + 6.25 = Carvedilol 18.75 mg IR tablet PO BID and at todays visit the Pt's Spirolactone was increased from 25 mg PO OD to 25 mg PO BID, Pt has a B/P cuff at home where his B/P can be monitored on a daily basis by his , will ask our [facility] Nurse to call Pt and verify their understanding of when and how much to take with his increasing HTN medications, will send in an E-consult for Nephrology for further instruction and f/u with Pt in a month 01/12/2021 the Pt had a Renal referral with the following recommendations 1. Chronic Kidney Disease G2 A3: Etiology: Presumed to be due to diabetic nephropathy now with nephrotic range proteinuria which suggests progression of his CKD. Baseline S Cr: 1.3 UPCR: 3.1->8.8 -Continue Losartan 100 mg daily -Continue Empagliflozin 25 mg daily -Avoid all NSAIDs -Renally dose medications -Goal BP < 130/80 -Goal HgA1c < 7.0% -Avoid hypovolemia/dehydration -Renal diet 2. Hypertension/Volume: Goal BP <130/80 -Currently on Losartan 100 mg daily, Carvedilol 12.5 mg BID, Lasix 40 mg daily, Spironolactone 25 mg daily 3. Renal MBD: iPTH 74, Vitamin D 11 Ca and Phos are acceptable -Currently on Ergocalciferol 50K IUs weekly 4. Anemia: Hg 14.1 -No current indication for EPo Assessment & Plan (03/10/2021 5:51 PM EDT): The Pt's B/P this visit was 144/85 and informed Pt to increase his Coreg from 12.5 mg to 18.75 mg and the Pt has a f/u in 2 weeks to assess the effectiveness of medication change, Pt currently denies experiencing any pain or tightness of chest, blurry vision, dizziness, headache, SOB, or being diaphoretic ?? Assessment & Plan (01/18/2021 3:38 PM EDT): Antihypertensives Start End carvediloL (COREG) 12.5 mg Immediate Release tablet 12/02/2020 Sig - Route: Take 1 tablet (12.5 mg total) by mouth 2 (two) times daily with breakfast and dinner. - Oral Renewals Renewal requests to authorizing provider (Carlos Eduardo Joyner MD) <b>prohibited</b> furosemide (LASIX) 40 mg tablet 12/02/2020 Sig - Route: Take 1 tablet (40 mg total) by mouth daily. - Oral Renewals Renewal requests to authorizing provider (Carlos Eduardo Joyner MD) <b>prohibited</b> losartan (COZAAR) 100 mg tablet 12/02/2020 Sig - Route: Take 1 tablet (100 mg total) by mouth daily. - Oral Renewals Renewal requests to authorizing provider (Carlos Eduardo Joyner MD) <b>prohibited</b> spironolactone (ALDACTONE) 25 mg tablet 01/04/2021 03/05/2021 Sig - Route: Take 1 tablet (25 mg total) by mouth daily. - Oral Patient has DM, CKD, or cardiovascular disease and BP goal is < 130/80 If BP not at goal, please make the following changes: recent creatinine/potassium from 01/07 stable, recheck in [facility] this week Assessment & Plan (01/04/2021 9:26 AM EDT): Antihypertensives Start End amLODIPine (NORVASC) 10 mg tablet 01/01/2021 Class: Historical Med carvediloL (COREG) 12.5 mg Immediate Release tablet 12/02/2020 Sig - Route: Take 1 tablet (12.5 mg total) by mouth 2 (two) times daily with breakfast and dinner. - Oral Renewals Renewal requests to authorizing provider (Carlos Eduardo Joyner MD) <b>prohibited</b> furosemide (LASIX) 40 mg tablet 12/02/2020 Sig - Route: Take 1 tablet (40 mg total) by mouth daily. - Oral Renewals Renewal requests to authorizing provider (Carlos Eduardo Joyner MD) <b>prohibited</b> losartan (COZAAR) 100 mg tablet 12/02/2020 Sig - Route: Take 1 tablet (100 mg total) by mouth daily. - Oral Renewals Renewal requests to authorizing provider (Carlos Eduardo Joyner MD) <b>prohibited</b> spironolactone (ALDACTONE) 25 mg tablet 01/04/2021 03/05/2021 Sig - Route: Take 1 tablet (25 mg total) by mouth daily. - Oral Patient has DM, CKD, or cardiovascular disease and BP goal is < 130/80 If BP not at goal, please make the following changes: spironolactone being started by PCP and amlodipine discontinued. Assessment & Plan (11/18/2020 3:08 PM EDT): The Pt's B/P this visit was 160/86 and informed Pt to increase his Coreg from 6.25 mg to 12.5 mg and the Pt has a f/u NV appointment on 11/23/2020 where the pt's B/P will monitored and then leave a note for questions od how to manage the Pt's HTN medications 11/13/2020 PCP Note: Concerned about the Pt's HTN NV note: Reviewed current BP medications. Patient concerns with BP meds: patient reports he took Coreg 12.5 mg one time on the day of our last visit to bring down his high BP but then continued taking 6.25 mg every day since then because that is what is stated on the bottle and misunderstood verbal directions At today's visit BP was taken in each arm and found to be at goal 104/71 pulse 103 and 107/62, pulse 104, Response: Hopefully at his next NV he should only be taking his Losartan 100 mg, Amlodipine 10 mg and Coreg 12.5 mg and his B/P will be better at his next visit, Blood Pressure goal is at 140/90, let me know how it goes CCM: 10 minutes 11/13/2020 Deep Pruitt APRN Assessment & Plan (11/13/2020 2:49 PM EDT): Concerned about the Pt's HTN NV note: Reviewed current BP medications. Patient concerns with BP meds: patient reports he took Coreg 12.5 mg one time on the day of our last visit to bring down his high BP but then continued taking 6.25 mg every day since then because that is what is stated on the bottle and misunderstood verbal directions At today's visit BP was taken in each arm and found to be at goal 104/71 pulse 103 and 107/62, pulse 104, Response: Hopefully at his next NV he should only be taking his Losartan 100 mg, Amlodipine 10 mg and Coreg 12.5 mg and his B/P will be better at his next visit, Blood Pressure goal is at 140/90, let me know how it goes CCM: 10 minutes 11/13/2020 Deep Pruitt APRN Assessment & Plan (09/09/2020 2:55 PM EDT): Pt still needs to be seen by the Nurse to help assist with HTN medication adjustments Pt is currently taking: -losartan 50 mg tablet PO QD -amLODIPine (NORVASC) 10 mg tablet PO QD Pt last B/P is 188/81 Pt currently denies experiencing any pain or tightness of chest, blurry vision, dizziness, headache, SOB, or being diaphoretic -Pt is to scheduled to meet with NV for 3 visits and then see PCP on 4th visit with goal to have HTN below 130/80 -Week 1 review B/P reading, if HTN Goal 130/80 is not met then increase Losartan by 25 mg tab so the Pt will now take Losartan by 75 mg tabmg PO QD -Week 2 review B/P reading, if HTN Goal 130/80 is not met then increase Losartan by 25 mg tab so the Pt will now take Losartan 100 mg PO QD -Week 3 review B/P reading, if HTN Goal 130/80 is not met then start Lisinopril 5 mg tab so the Pt will now take Lisinopril 5 mg PO QD -Week 4 review B/P reading, Pt will meet with PCP Any questions please call PCP Assessment & Plan (08/03/2020 3:54 PM EDT): Pt's B/P today was 151/126, Pt c/o some dizziness, last time the Pt was in the hospital they dropped his Amlodipine 10 mg QD PO to Amlodipine 5 mg, will now increase his Losartan 75 mg to 100 mg and will f/u with Pt in one week to manage HTN, used [employer] [id number], Pt denies experiencing any pain or tightness of chest, blurry vision, dizziness, headache, SOB, or being diaphoretic May 2020 Cardiac Referral Note: #HTN Fairly well controlled at home, in the 130s/90s -amlodipine from 10 mg to 5 mg as above -Lasix per nephrology -continue losartan 75mg daily -daily BP checks, and keep log -if BP increases with decreased amlodipine dose, will make further medicaiton adjustments at f/u visit Assessment & Plan (07/01/2020 5:19 PM EST): Since the Pt started taking Losartan 100 mg tablet PO QD and amLODIPine (NORVASC) 10 mg tablet PO QD his pressure has been 138/88 and the Pt currently denies experiencing any pain or tightness of chest, blurry vision, dizziness, headache, SOB, or being diaphoretic Assessment & Plan (06/24/2020 4:15 PM EST): Pt is currently taking: -losartan 75 mg tablet PO QD -amLODIPine (NORVASC) 10 mg tablet PO QD Pt last B/P is 167/97 Pt currently denies experiencing any pain or tightness of chest, blurry vision, dizziness, headache, SOB, or being diaphoretic -Pt is to scheduled to meet with NV for 4 visits and then see PCP on 4th visit with goal to have HTN below 130/80 -Week 1 review B/P reading, if HTN Goal 130/80 is not met then increase Losartan by 25 mg tab so the Pt will now take Losartan by 100 mg tabmg PO QD -Week 2 review B/P reading, if HTN Goal 130/80 is not met then start Lisinopril 5 mg tab so the Pt will now take Lisinopril 5 mg PO QD -Week 3 review B/P reading, if HTN Goal 130/80 is not met then start Lisinopril 5 mg tab so the Pt will now take Lisinopril 10 mg PO QD -Week 4 review B/P reading, if HTN Goal 130/80 is not met then start Lisinopril 5 mg tab so the Pt will now take Lisinopril 15 mg PO QD Assessment & Plan (03/11/2020 3:13 PM EST): When the Pt was admitted to [place] for NICOLAS they had stopped his Lisinopril 30 mg PO QD and was instead put on Atenolol 10 mg PO QD, talking with Dr Aceves it was decided to stop the Atenolol 10 mg PO QD and start the Pt on Losartan 25 mg because it is more Kidney protective, His last B/P while cecile on Losatan 25 mg was at 188/81 and will titrate the Losartan to 50 mg Pt up weekly and will work with a NV to titate his B/P medication up weekly, spent 35 min with [employer] [id number], will f/u with Pt in one month Pt is currently taking: -losartan 50 mg tablet PO QD -amLODIPine (NORVASC) 10 mg tablet PO QD Pt last B/P is 188/81 Pt currently denies experiencing any pain or tightness of chest, blurry vision, dizziness, headache, SOB, or being diaphoretic -Pt is to scheduled to meet with NV for 3 visits and then see PCP on 4th visit with goal to have HTN below 130/80 -Week 1 review B/P reading, if HTN Goal 130/80 is not met then increase Losartan by 25 mg tab so the Pt will now take Losartan by 75 mg tabmg PO QD -Week 2 review B/P reading, if HTN Goal 130/80 is not met then increase Losartan by 25 mg tab so the Pt will now take Losartan 100 mg PO QD -Week 3 review B/P reading, if HTN Goal 130/80 is not met then start Lisinopril 5 mg tab so the Pt will now take Lisinopril 5 mg PO QD -Week 4 review B/P reading, Pt will meet with PCP Any questions please call PCP Assessment & Plan (02/22/2020 5:21 AM EDT): Will start the Pt on Losartan (help protect the kidneys from damage due to diabetes), will discontinue the atenolol and start him at Losartan 25 mg and slowly titrate him up and the Pt needs to get all his meds in macedonian and has an appointment on 02/24/2020 02/24/2020 ??3:40 PM Provider Deep Pruitt APRN [facility] Assessment & Plan (02/22/2020 5:19 AM EDT): I see that Losartan help protect the kidneys from damage due to diabetes, I will discontinue the atenolol and start him at Losartan 25 mg and slowly titrate him up and the Pt needs to get all his meds in macedonian and has an appointment on 02/24/2020 02/24/2020 ??3:40 PM Provider Deep Pruitt APRN [facility] Assessment & Plan (03/16/2019 6:10 AM EST): Pt continues to have elevated HTN 147/94 and will have Pt Meet with Nurse once a week to adjust his HTN medication, Pt is currently on Lisinopril 5 mg PO OD, please increase lisinopril by 5 mg each Nurse visit till Pt reaches 40 mg or meets HTN goal 140/90 Assessment & Plan (02/07/2019 6:56 AM EDT): Pt's current B/P is 137/84, Pt stated that he has daily elevated HTN in the afternoon that usually runs about 167/100, will continue to monitor and add Lisinopril 5 mg back on to his medication list that he was on previously, Pt denies experiencing any pain or tightness of chest, blurry vision, dizziness, headache, SOB, or being diaphoretic Assessment & Plan (12/18/2018 10:01 AM EDT): Continue current regimen for now. Consider stopping atenolol and increasing lisinopril. Consider stopping amlodipine and increasing lisinopril. Will discuss next visit. Hyperlipidemia associated with type 2 diabetes jorge doyle 12/10/2018 Assessment & Plan (06/16/2021 10:23 AM EST): Lab Results Component Value Date LDL 90 01/25/2021 Goal LDL: < 100 mg/dL Antihyperlipidemia Start End atorvastatin (LIPITOR) 80 mg tablet 12/02/2020 Sig - Route: Take 1 tablet (80 mg total) by mouth daily. - Oral Renewals Renewal requests to authorizing provider (Carlos Eduardo Joyner MD) <b>prohibited</b> ezetimibe (ZETIA) 10 mg tablet 12/02/2020 Sig - Route: Take 1 tablet (10 mg total) by mouth daily. - Oral Renewals Renewal requests to authorizing provider (Carlos Eduardo Joyner MD) <b>prohibited</b> Assessment & Plan (01/18/2021 3:39 PM EDT): - recent LDL at goal, continue with statin Assessment & Plan (03/15/2020 5:50 AM EST): The Pt had stated to the Nurse previously that he had stopped taking his Atorvastin, will ask again next visit Results for DARREL BHARDWAJ ( ) as of 03/15/2020 05:45 Ref. Range 03/12/2020 08:10 Cholesterol, Total Latest Ref Range: <200 mg/dL 207 (H) HDL Cholesterol Latest Ref Range: > OR = 40 mg/dL 30 (L) Triglycerides Latest Ref Range: <150 mg/dL 358 (H) LDL Cholesterol Latest Units: mg/dL (calc) 126 (H) Non-HDL Cholesterol Latest Ref Range: <130 mg/dL (calc) 177 (H) Chol/HDL Ratio Latest Ref Range: <5.0 (calc) 6.9 (H) The ASCVD Risk score (Lupehenry WOODWARD Jr., et al., 2013) failed to calculate for the following reasons: The patient has a prior OH or stroke diagnosis Assessment & Plan (12/18/2018 10:01 AM EDT): Continue statin. Resolved Problems Problem Noted Date Diagnosed Date Resolved Date Shortness of breath 11/02/2021 11/29/19 Assessment & Plan (11/02/2021 5:25 PM EDT): Noted while at dentist today with transient chest pain resolved on exam. Patient without albuterol on hand. Suspect GERD vs asthma exacerbation or overlap. Low suspicion for cardiopulmonary etiology. - Albuterol nebulizer administered in office with good effect; patient reporting resolution of symptoms. Lung sounds improved. Acute cystitis without hematuria 09/08/2021 11/28/2021 Assessment & Plan (09/10/2021 5:55 PM EDT): -Will ask Nurse to call Pt with results seen below (Fijian only please) -And let him know that his UTI results were negative and there is no reason for antibiotics 09/08/2021 PCP Note: Pt c/o burning with urination for the past 2 day, will ask Pt to do a urine culture before prescribing an Antibiotic medication used Fijian interpretor [id number] 09/10/2021 PCP Addendum Note: The Pt has no incidents of having a UTI, will ask Staff to call Pt to share results with Pt Results for DARREL BHARDWAJ ( ) as of 09/10/2021 17:20 Ref. Range 09/09/2021 Protein, UA Latest Ref Range: NEGATIVE 3+ (A) Glucose, UA Latest Ref Range: NEGATIVE 2+ (A) Ketones, UA Latest Ref Range: NEGATIVE NEGATIVE Occult Blood Latest Ref Range: NEGATIVE 1+ (A) Hyaline Casts, UA Latest Ref Range: NONE SEEN /LPF NONE SEEN WBC, UA Latest Ref Range: < OR = 5 /HPF NONE SEEN RBC, UA Latest Ref Range: < OR = 2 /HPF 3-10 (A) Acute serous otitis media, r ecurrence not specified, unspecified laterality 08/13/20212021 Assessment & Plan (08/13/2021 11:47 AM EDT): DDx: AOM, EOM, cerumen impaction, dental abscess, TMJ - etiology of pain to left ear more than right, minimal sick symptoms, but possible pain to mastoid as patient states it hurts if he rubs his head behind the ear. No fever, no acute changes in hearing, mild hearing change to left ear, no drainage or outer ear swelling noted by patient - will empirically treat for AOM, with z-andi due to PCN allergy - follow-up next week for improvement, in person preferable. - patient informed to have sooner appointment if fever, sudden change in hearing, drainage noted Recurrent cellulitis of lower leg 03/10/2021 11/28/2021 Assessment & Plan (03/10/2021 1:48 PM EDT): For the past 3 weeks the Pt has been c/o increased swelling and tenderness of both feet and ankles, Pt has had these symptoms in the past which turned out to be cellulitis of both feet and ankle area, Pt was advised to stop Spirolactone while taking the sulfamethoxazole-trimethoprim (BACTRIM DS;CO-TRIMOXAZOLE DS) 800-160 mg per tablet and restart when finished ABX Elevated WBC count 01/08/2021 Assessment & Plan (01/08/2021 1:15 PM EDT): Results for DARREL BHARDWAJ ( ) as of 01/08/2021 13:09 Ref. Range 01/07/2021 Neutrophils Absolute Latest Ref Range: 1,500 - 7,800 cells/uL 8,869 (H) Lymphocytes Absolute Latest Ref Range: 850 - 3,900 cells/uL 3,130 Monocytes (Absolute) Latest Ref Range: 200 - 950 cells/uL 1,184 (H) Eosinophils Absolute Latest Ref Range: 15 - 500 cells/uL 832 (H) Leg wound, left, initial encounter 01/04/2021 11/28/2021 Assessment & Plan (01/21/2021 11:03 AM EDT): - leg wound improved Assessment & Plan (01/04/2021 10:00 AM EDT): - small approx. 1 cm leg wound with pink tracking around wound. - will start Doxcycline, did not start bactrim related to drug interaction with spironolactone, allergic to PCN, wanted to avoid cephalosporin. - follow-up 1-2 weeks for further evaluation of wound Chronic pain of both hips 12/15/2020 Ear pain, left 04/24/2020 06/16/2021 Assessment & Plan (04/24/2020 4:12 PM EST): Please inform Pt that I will send a script to his pharmacy for ear drops, if his condition gets worse the Pt is to go to [facility] CCM: 5 minutes 04/24/2020 Deep Pruitt APRN Returned pt's call regarding c/o left ear pain. The patient reports the pain started last night 04/23/20. The pt states it feels like something is stuck in my left ear. Reports a moderate pain that is aggravated by chewing and moving the jaw. Reports mild throat pain as well. Denies redness in the throat. Reports he has not taken anything for the pain. Suggested to pt to go to the [facility] to be seen, but pt declined and said he wants PCP to order some ear drops for him. CCM: 10 minutes 04/24/2020 Raysa Gomez RN NICOLAS (acute kidney injury) (HC Code) (HC CODE) 02/04/20 20 11/28/2021 Memory loss 12/17/2019 11/28/2021 Hx of colonic polyps 11/13/2019 022 Assessment & Plan (05/31/2020 5:39 PM EST): 2 years ago the Pt had colonoscopy at [facility] in [facility] and was told to return in a year for further surveillance because he had several polyps removed, the concern is that the Pt had a CVA x 2 in 2017 and need Neuro clearance and the Neuro referral was put in today Assessment & Plan (11/13/2019 7:05 PM EDT): Pt had a Colonoscopy done in [facility] in [facility] one year ago and was told to return in a year for further surveillance, Pt had several polyps removed Hemorrhoids, unspecified hemorrhoid type 11/13/2019 01/16/2022 Assessment & Plan (11/14/2020 11:04 AM EDT): Pt continues to be dealing with painful hemorrhoids, Pt can only sit for short distances, Pt was informed to take short sitz baths 3-4 times a day especially after having a BM, Pt was prescribed rectal Hydrocortisone suppositories Assessment & Plan (11/13/2019 7:15 PM EDT): Pt continues to be dealing with painful hemorrhoids, Pt can only sit for short distances, Pt was informed to take short sitz baths 3-4 times a day especially after having a BM, Pt was prescribed rectal Hydrocortisone suppositories, unsure if insurance will cover it but at least the Pt will know what to get for OTC option Cellulitis of both feet 10/02/201905/08 Assessment & Plan (01/03/2020 11:45 AM EDT): 01/02/2020 the 49 yo male (Fijian speaking only) with a BMI of 39.6, last A1C Dec 2019 increased to 13.7, in 2017 the Pt had a right sided stroke (minimal residual speech and walking issues) and is working with our Diabetic [employer] Specialist to bring his sugars down, Pt is again developing swelling of his left foot and again is developing some eurthmia, warmth, tenderness with touch,??Pt had difficulty waking on his left foot, Pt was informed that with this 3rd episode of cellulitis he should go to the ED to get admitted to get IV ABX and get his A1C of 13.7 under better control and figure out how come his lower extremites keep swelling, the Pt stated he will be going to go the Hospital tomorrow morning ? -10/23/2019 the 49 yo male with a BMI of 39.6, last A1C September 2019 A1C=12.6, again developed bilateral midcalf to both feet +2 edema with eurthmia, warmth, tenderness with touch,??Pt had difficulty waking, Pt was prescribed lasix 80 mg for 2 weeks and the Bactrim 800-160 will be given PO TID x 10 days , Pt was told to keep his leg elevated when possible and is wearing his knee high compression stocking on a daily basis, Pt was told that if he develops a 3rd infection to his feet since September 2019 he should go to the ED for IV abx and further follow up, ?? -10/02/2019: Pt has a BMI of 40.4, For the past 3 days the Pt has been dealing eurthmia, warmth,and tenderness with touch to his toes of both feet, it is very difficult for the Pt to walk, Pt has not had this condition prior, Pt is currently on lasix for increased swelling to both feet, will start Doxycyline 100 mg PO BID for 10 days, If Pt condition does not get better after 4 days of being on these antibiotics, Pt is to call the Clinic or go to the ED Assessment & Plan (11/13/2019 7:08 PM EDT): Used a Accounting Professional [id number] for the entire 25 min visit, Pt stated that his feet are doing much better and his cellulitis and swelling of his feet has resolved Assessment & Plan (11/06/2019 5:50 PM EDT): 49 yo male with a BMI of 39.6, last A1C September 2019 A1C=12.6, the Pt had just finished his most recent round of ABX 4 days ago and still his left toes are still slight swollen with eurthmia, warmth,and tenderness with touch, Pt was told that if he develops a 3rd infection to his feet since September 2019 he should go to the ED for IV abx and further follow up, will f/u with Pt in 1 weeks, used a Accounting Professional [id number] throughout the visit -10/23/2019 the Pt again developed bilateral midcalf to both feet +2 edema with eurthmia, warmth, tenderness with touch, Pt had difficulty waking, Pt was prescribed lasix 80 mg for 2 weeks and the Bactrim 800-160 will be given PO TID x 10 days , Pt was told to keep his leg elevated when possible and is wearing his knee high compression stocking on a daily basis -10/04/2019 the Pt had the same condition as listed above and was given Doxycyline 100 mg PO BID for 10 days Assessment & Plan (10/23/2019 2:34 PM EDT): 4 days ago the Pt started again dealing eurthmia, warmth,and tenderness with touch to his toes of both feet, and it was very difficult for the Pt to walk, A month ago the Pt had the same condition and was given Doxycyline 100 mg PO BID for 10 days, Pt just mentioned that he had this condition same 8 months prior, September 2019 A1C was 12.6, Will increase lasix to 80 mg for 2 weeks and the Bactrim 800-160 will be given PO TID due to the Pt obese weight BMI 39.6, Pt was told to keep his leg elevated when possible and is wearing his knee high compression stocking on a daily basis and will f/u with Pt in 2 weeks, used a Accounting Professional Propio through out the visit Assessment & Plan (10/02/2019 6:28 PM EDT): Pt has a BMI of 40.4, For the past 3 days the Pt has been dealing eurthmia, warmth,and tenderness with touch to his toes of both feet, it is very difficult for the Pt to walk, Pt has not had this condition prior, Pt is currently on lasix for increased swelling to both feet, will start Doxycyline 100 mg PO BID for 10 days, If Pt condition does not get better after 4 days of being on these antibiotics, Pt is to call the Clinic or go to the ED LUQ pain 09/09/2019 01/16/2022 Assessment & Plan (12/02/2021 7:15 PM EDT): May be secondary to chronic constipation and gas. Also with history of left ventral hernia. Ddx includes but not limited to gastritis, GERD, cholecystitis, pancreatitis, hepatitis, diverticulitis, bowel obstruction, urolithiasis, gastroenteritis CT abdomen 03/2021 for LUQ: 1. Hepatic steatosis. 2. Gallstones in the gallbladder with no evidence of acute cholecystitis. - Check lipase, CBC, CMP - Recommend trial of simethicone for gas to see if pain is alleviated - Try glycerin suppository for possible stool impaction if symptoms persist - Continue constipation regimen with miralax, hydration, fiber, activity + daily PPI for GERD - Recommend f/u in primary care for management of obesity and optimization for potential hernia Assessment & Plan (01/26/2021 10:10 AM EDT): - patient reports today that his LUQ pain is on-going. He does take protonix daily and polyethylene glycol. He has a history of chronic constipation, h-pylori. Now experiencing blood with bowel movements, could be related to hemorrhoids and persistent upper quadrant pain. Possible that he has h-pylori, and or gastroparesis could benefit from EGD to r/o peptic vs. Duodenal ulcer. Will r/o gallbladder concern, chronic pancreatitis, anemia, infection with labs: lipase, CBC, CMP - patient educated on taking stool softener daily, lots of water and foods with fiber- spinach, broccoli, salad, bran - GI referral placed Assessment & Plan (01/04/2021 10:02 AM EDT): DDx: hemorrhoids, GERD, diverticulitis, peptic ulcer, duodenal ulcer - etiology of blood in stool x 1 and left upper quadrant abdominal pain unknown at this time. - likely GERD related and hemorrhoids. - will start Protonix once daily x 6 weeks and evaluate for improvement - last Colonoscopy reports reviewed - informed patient to drink water throughout the day as well as ewat vegetables and take polyethylene of which he is already using, to help with hemorrhoid. - if on-going can refer to GI Edema of both lower legs 07/07/201903/2022 Assessment & Plan (05/14/2021 2:02 PM EST): Jeovanny Duncan: Please call Pt and see how he is doing, went to [facility] yesterday to assess if he had Cellulitis of both Lower legs Thank you Deep 05/13/2021 [facility] Note: Extremities: there is 2-3+ pitting edema, at least up to his knees. Both legs and feet are darker in complexion than the rest of his body. His legs and feet are cool to touch. There is 2+ DP pulses on both feet. There are no ulcers, skin tear or weeping lesions, or rahses. Skin is moist. Calves are non-tender to palpation Assessment: Patient is a 50 y.o. male ( male) presenting for b/l LE neuropathy exacerbated by worsening edema iso poor dietary indiscretion Plan: Neuropathy. Unlikely to be cellulitis, VTE, gout (has hx of gout) - Provided reassurance that this is not cellulitis - instructed to restrict salt in his diet and eat fresh food - take lasix and gabapentin as instructed - monitor weight daily. Contact PCP or kidney doctor if there are large fluctuations in weight (3+ibs/24-48hrs) - Maintain good adherence with compression stockings - Raise feet above the heart when resting - follow up with PCP Assessment & Plan (04/21/2021 2:20 PM EST): Since stopping the amlodipine 10 mg and starting the Spirolactone 25 mg PO QD the Pt B/P is 124/86 and his lower leg edema has come down considerably, Pt continues to wear his Compression sleeves on a regular basis, Put on lower legs during the day and take off at night, and wash and let dry and put on 2nd pair on the following day for Edema, lower extremity R60.0 Assessment & Plan (04/08/2021 7:40 AM EST): -Pt will not be given another round of Abx see message from 04/07/2021 below -Pt continues to deal with an A1C +10, -Encourage the Pt to first acquire compression stocking and to wear them on a daily basis -Amlodipine was stopped and Pt was started the Pt on Spirolactone 50 mg PO QD, -Due to recurrent swelling of both lower legs and his Protein Total and Creat, Urine, 24 from 2019 was 3,176 (H) and to a recent lab has elevated to 8,806 (H) -Pt will be referred to the [facility] Radar Tester to assess if his current diet is helping with his Diabetes and Renal issues as listed above -Pt is currently taking ?? Carvedilol (COREG) 18.5 mg Immediate Release tablet PO BID ?? Lasix 60 mg PO QD ?? Losartan (COZAAR) 100 mg tablet 100 mg PO QD ?? Spirolactone 50 mg PO QD -Pt's Spirolactone will be increased from 50 mg PO QD to 50 mg PO BID and have Nurse f/u with Pt to in 2 wks. check if he has compression stocking and what is his B/P -Will send note to Renal Provider for further assistance and assessment Perla Rice RN message to Deep Pruitt CRULLER MAKER Call was returned to patient and his . They stated that he completed a 10 day course of sulfamethoxazole-trimethoprim on 03/11 and his cellulitis improved significantly. The swelling has now returned and he is requesting of PCP can order another course of antibiotics Results for DARREL BHARDWAJ ( ) as of 04/08/2021 06:24 Ref. Range 02/06/2020 03/12/2020 01/07/2021 Creatinine, Urine, Random Latest Ref Range: 20 - 320 mg/dL 17 (L) 36 Uric Acid, Urine, Random Latest Ref Range: See Note: mg/dL 7 19 Beta Globulin Latest Ref Range: 0.70 - 1.20 g/dL 1.15 Protein, Total and Creat, Urine, 24 Hour Latest Ref Range: 22 - 128 mg/g creat 3,176 (H) 8,806 (H) 12/24/2020 [facility] Sports Medicine Discussion: Mr. Bhardwaj is a 50 yo M with multiple medical issues including CKD, DM, with several months of lower extremity edema and foot pain. 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 Regarding his arthritis, I recommended using tylenol and adding an arch support to his footwear. Regarding his edema, I do think regular use of compression stockings would be helpful, but additional input from his primary care physician and chocolate temperer would be helpful. Considerations would include: stopping amlodipine, increasing diuretics, re-assessing labs for kidney function (e.g. is proteinuria worsening), and dietary interventions. Also counseled patient that weight loss would likely be helpful. I think his associate of science in nursing can be helpful with managing his midfoot arthritis and optimizing his footwear. He will follow up with me as needed for ongoing issues, but optimizing his edema prior to that follow up appointment would be helpful. Assessment & Plan (03/25/2021 7:14 AM EST): Last appointment the Pt was started on Amlodipine 5 mg PO QD and started on Spirolactone 25 mg PO QD and now after 2 weeks the Pt still has swelling in both legs and now will increase the Pt's Spirlactatone to 25 mg Tab PO BID and stop the Pt Amlodipine 5 mg PO QD, current B/P reading 148/88, the Pt continues to deal with bilateral lower extremity edema and will reorder Compression sleeves today from [facility] today, Put on lower legs during the day and take off at night, and wash and let dry and put on 2nd pair on the following day for Edema, lower extremity R60.0, Pt will call [facility] to check on status of his Compression stocking and put contact info in AVS for the Pt to call and arrange for sizing Assessment & Plan (01/03/2021 7:38 AM EDT): 12/24/2020 [facility] Sports Medicine Discussion: Mr. Bhardwaj is a 50 yo M with multiple medical issues including CKD, DM, with several months of lower extremity edema and foot pain. 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 Regarding his arthritis, I recommended using tylenol and adding an arch support to his footwear. Regarding his edema, I do think regular use of compression stockings would be helpful, but additional input from his primary care physician and chocolate temperer would be helpful. Considerations would include: stopping amlodipine, increasing diuretics, re-assessing labs for kidney function (e.g. is proteinuria worsening), and dietary interventions. Also counseled patient that weight loss would likely be helpful. I think his associate of science in nursing can be helpful with managing his midfoot arthritis and optimizing his footwear. He will follow up with me as needed for ongoing issues, but optimizing his edema prior to that follow up appointment would be helpful. ?? Diagnosis: ?? Bilateral foot pain - some midfoot arthritis ?? Bilateral foot and ankle edema - this is likely related to venous insufficiency and CKD ??Bilateral feet, 4 views each (AP, lateral, oblique and sesamoid) ?? INDICATION: Pain to first MTPs bilaterally ?? COMPARISON: 02/04/2020 ?? FINDINGS: There are mild midfoot degenerative changes bilaterally. There is a bipartite medial sesamoid on the right, similar to prior. The hallux sesamoids otherwise appear unremarkable. No degenerative changes are noted at the first MTPs. Enthesophytes are noted off the calcaneal tuberosities bilaterally. ?? IMPRESSION: ?? No definite abnormality is noted around the first MTPs bilaterally. ?? Mild midfoot degenerative changes. Plan: ?? Additional testing: none at this time ?? Activity modification: continue wearing orthopedic shoes; suggest trying Superfeet blue insoles in your shoes for an arch support - can buy online (not covered by insurance) ?? Medications: ok to take tylenol 1,000mg up to three times a day as needed for pain ?? Therapy: none ?? Referrals: none at this time - plan for regular follow up with your associate of science in nursing, primary care physician, and chocolate temperer ?? Follow-up: as needed with me ?? Other interventions: recommend keeping the legs elevated when sitting (try to get feet above the level of the heart to get the fluid to come down; also recommend new pair of custom graduated compression stockings - wear daily - please call [facility] for an appointment to be measured for the new stockings so they fit you well. [facility] [address] [place] [address], [place] [address] , PCP Notes: Will stop Amlodipine 5 mg PO QD and start Pt on Spirolactone 25 mg PO QD and assess in 2 weeks if Spirlactatone needs to be increased to 25 mg BID Will fax to [facility] order for Compression stocking and put contact info in AVS for the Pt to call and arrange for sizing CCM: 10 minutes 12/29/2020 Deep Pruitt APRN Assessment & Plan (06/24/2020 3:44 PM EST): 06/13/2020 the Pt had 2 pairs of Knee high compression stockings ordered and sent to [facility] and the Pt has to call [facility] so he can be measured and then pick them up when they arrive Assessment & Plan (06/13/2020 7:10 AM EST): Pt continues to deal with bilateral lower extremity edema will order Compression sleeves today from [facility] today, Put on lower legs during the day and take off at night, and wash and let dry and put on 2nd pair on the following day for Edema, lower extremity R60.0, will send to [facility] today Assessment & Plan (05/26/2020 5:58 PM EST): Pt continues to deal with slightly swollen feet that are painful to walk on, Pt went to [facility] a couple days ago and had his Gabapentin increased from 300 mg to 400 mg PO BID , Pt denies any symptoms of Gout, Pt c/o Constipation and reordered his Miralax to get his BM more regular, Pt was put back on Lasix 40 mg PO QD as per Renal, Pt was having issues with feet swelling since being taken off of Lisinopril 30 mg by Renal, Pt c/o B/P 169/109, increased the Pt Losartan from 50 mg to 75 mg PO QD, Pt denies experiencing any pain or tightness of chest, blurry vision, dizziness, headache, SOB, or being diaphoretic, and will f/u with Pt in 2 days at his next appointment [employer] #[id number] CCM: 20 minutes 05/26/2020 Deep Pruitt APRN Assessment & Plan (04/08/2020 6:01 PM EST): -02/14/2020 The went to his Vascular Referral: Pt with a PMH of HTN, HEL, 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 His bilateral LE edema was likely iso volume overload which had improved to patients baseline following increase diuresis. Plan: Continue DMII and CKD management per primary teams, Follow up with podiatry for right foot wound, Follow up with Dr. Mehreen pereira -02/05/2020 U/S FINDINGS: There is normal compressibility without demonstrable thrombus in the bilateral common femoral, femoral, or popliteal veins down to the level of the trifurcation. Spectral analysis demonstrates flow with normal augmentation. Normal respiratory variability is identified in the external iliac veins. Bilateral proximal profunda femoris and great saphenous veins are unremarkable. The calf veins are suboptimally visualized and demonstrate patency on color Doppler flow only and therefore nonocclusive thrombus cannot be excluded. 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 His bilateral LE edema was likely iso volume overload which had improved to patients baseline following increase diuresis. His physical examination is reassuring for vascular sufficiency and his now resolved edema is unlikely to have been vascular in origin. Cotton was applied between 3/4 th and 4/5th toes to promote ulceration healing. The patient was instructed to perform daily cotton dressing changes as well as foot inspections and educated to the need for podiatric follow up. ?? Plan: - Continue DMII and CKD management per primary teams - Follow up with podiatry for right foot wound - Follow up with Dr. Mehreen pereira 02/05/2020 U/S FINDINGS: -There is normal compressibility without demonstrable thrombus in the bilateral common femoral, femoral, or popliteal veins down to the level of the trifurcation. Spectral analysis demonstrates flow with normal augmentation. Normal respiratory variability is identified in the external iliac veins. Bilateral proximal profunda femoris and great saphenous veins are unremarkable. The calf veins are suboptimally visualized and demonstrate patency on color Doppler flow only and therefore nonocclusive thrombus cannot be excluded. ?? US RENAL on 02/04/2020 8:08 PM for Renal Failure?? -FINDINGS: The right kidney measures 13.7 cm and the left kidney measures 13.2 cm. There is no hydronephrosis or nephrolithiasis of either kidney. In the upper pole of the left kidney, the renal parenchyma appears echogenic (image 16). The bladder is unremarkable. The right ureteral jet is seen. -IMPRESSION: 1. No hydronephrosis or nephrolithiasis. 2. Nonspecific echogenic geographic focus in the left upper renal pole, which could be secondary to inflammation or related to medical renal disease. No additional findings of avascularity or collection is noted. Consider further evaluation with CT or MRI renal protocol, once the patient's renal function improves. Assessment & Plan (02/12/2020 2:10 PM EDT): Pt needs to call the Vascular Doctor to Clarify if it is in person or telephone visit 02/14/2020 10:30 AM Provider Billy Verde MD Department Ambulatory Surgical Specialties - Vascular [facility] [address] [address] Assessment & Plan (01/30/2020 4:18 PM EDT): Pt went to the ED at the direction of his PCP on 01/03/2020 Patient had lower leg edema predominant on the left side and had an ultrasound to rule out DVT. Patient is currently on Lasix 40 mg PO QD which was prescribed by his PCP, Pt was advised to follow-up with vascular specialist, Chest x-ray shows no signs of cardiomegaly, BNP is 20, but discussed with patient about his elevation and BUN and creatinine, will put a Renal referral in for his GFR of 45 and increased lasix up to 80 mg a day to help bring down his swelling in both legs and will refer Pt to a Vascular Doctor Assessment & Plan (10/02/2019 6:10 PM EDT): For the past 3 day the Pt has been dealing with +1 edema swelling to his bilateral ankle area and his great toe, 2 Assessment & Plan (07/07/2019 5:28 AM EST): Pt continues to experience slight edema in both feet, the Pt was ordered 2 pair of compression stocking was encouraged to wear is a pair compression stocking on a daily basis and take them off prior to going to bed, wash them and hang to dry and wear 2nd pair Jaw pain 03/16/2019 11/28/2021 Assessment & Plan (03/16/2019 6:27 AM EST): 03/12/19 Pt was at the Dentist and had a right lower jaw partial bone alveolotomy (which is known to have a painful recovery) due to having his Tooth #32 (lower right back tooth) was extracted almost 1 month ago, Pt is still taking his antibiotics and use chlorhexidine/and 2% visc lido mouth rince, and has a pain scale of 5/10 at rest and a 7/10 with eating, Pt continues to be under the care of his Dentist, will start Pt on Tramadol 50 mg Q 6 hrs for jaw pain and assess situation in one month at out next visit Medication refill 03/16/2019 11/28/2021 Essential hypertension, benign 03/16/2019 03/11/2020 Assessment & Plan (03/11/2020 3:10 PM EST): When the Pt was admitted to [facility] for [facility]ICOLAS they had stopped his Lisinopril 30 mg PO QD and was instead put on Atenolol 10 mg PO QD, talking with Dr Aceves it was decided to stop the Atenolol 10 mg PO QD and start the Pt on Losartan 25 mg because it is more Kidney protective, His last B/P while cecile on Losatan 25 mg was at 188/81 and will titrate the Losartan to 50 mg Pt up weekly and will work with a NV to titate his B/P medication up weekly Pt is currently taking: -losartan 50 mg tablet PO QD -amLODIPine (NORVASC) 10 mg tablet PO QD Pt last B/P is 188/81 Pt currently denies experiencing any pain or tightness of chest, blurry vision, dizziness, headache, SOB, or being diaphoretic -Pt is to scheduled to meet with NV for 3 visits and then see PCP on 4th visit with goal to have HTN below 130/80 -Week 1 review B/P reading, if HTN Goal 130/80 is not met then increase Losartan by 25 mg tab so the Pt will now take Losartan by 75 mg tabmg PO QD -Week 2 review B/P reading, if HTN Goal 130/80 is not met then increase Losartan by 25 mg tab so the Pt will now take Losartan 100 mg PO QD -Week 3 review B/P reading, if HTN Goal 130/80 is not met then start Lisinopril 5 mg tab so the Pt will now take Lisinopril 5 mg PO QD -Week 4 review B/P reading, Pt will meet with PCP Any questions please call PCP Assessment & Plan (02/24/2020 5:44 PM EDT): Will start the Pt on Losartan (help protect the kidneys from damage due to diabetes), will discontinue the atenolol??and??start him at Losartan 25 mg and slowly titrate him up??and the Pt needs to get all his meds in maced[place], sued health program manager Mikhail Lore Administrative encounter 02/07/201909/2020 Assessment & Plan (02/07/2019 7:01 AM EDT): The Pt asked for a CT State form Medical Report for Person who needs care , with Goal to have the Pt's partner as his hire car driver, spent 10 mins filling it out Stroke (HC Code) (HC CODE) 02/07/2019 0 11/28/2021 Overview (02/07/2019): Per Pt report in 2017. Hypotensive episode 01/02/2019 11/29/19 Assessment & Plan (01/04/2019 3:29 PM EDT): Pt has b/p of 96/72 and Pt c/o being dizzy sometimes or light headed will discontinue Amlodipine 5mg OD and will reassess Pt at his next visit with goal for him not to be as dizzy when getting up quickly Immunizations Name Administration Dates Next Due COVID-19 Vaccine - PFIZER 04/14/2021 COVID-19, MODERNA 12Y+, 0.5 mL 08/28/2020,2020 Influenza, injectable, quadr ivalent, preservative free 01/23/2023,03/24/2022,01/21/2021,02/04 Influenza, split virus, triv alent, Preservative Free 02/01/2024 Pneumococcal conjugate 20 va lent (PCV20) 03/24/2022 Pneumococcal polysaccharide PPSV23 01/21/2021 Tdap 03/24/2022 Family History Medical History Relation Name Comments Cancer Father Cancer Mother Relation Name Status Comments Father Mother Social History Tobacco Use Types Packs/Day Years Used Date Smoking Tobacco: Never Smokeless Tobacco: Never Tobacco Cessation:Counseling Given: No Alcohol Use Standard Drinks/Week Comments Never 0 [...] Never 05/19/2022 How often do you attend [facility] or protestant services? More than 4 times per year 05/19/2022 Do you belong to any clubs o r organizations such as uatsdin groups, unions, fraternal or athletic groups, or [...] Date Recorded PHQ-2 Total Score 2 02/17/2022 [facility] [place] of Occupat ional Health - Occupational Stress [...] your living situation today? I have a [facility] place to live 05/19/2022 Sex and Gender Information Value Date Recorded Sex Assigned at Male 12/10/2018 10:49 AM EDT Legal Sex Male 9:30 AM EST Gender Identity Male 12/10/2018 10:49 AM EDT Sexual Orientation Straight 12/10/2018 10 :49 AM EDT Last Filed Vital Signs Vital Sign Reading Time Taken Comments Blood Pressure 167/93 06/23/2022 1:32 PM EST Pulse 109 06/23/2022 1:32 PM EST Temperature 36.1 ??C (96.9 ??F) 04/21/2022 1 2:00 PM EST Respiratory Rate 17 06/23/2022 1:32 PM EST Oxygen Saturation 98% 05/19/2022 1:38 PM EST Inhaled Oxygen Concentration - - Weight 113.9 kg (251 lb 1.7 oz) 06/23/2022 1:32 PM EST Height 165.1 cm (5' 5 ) 06/23/2022 1:32 PM EST Body Mass Index 41.79 06/23/2022 1:32 PM EST Plan of Treatment Health Maintenance Due Date Last Done Comments Dental X-Ray: Full Mouth 1970 Shingles vaccine (Shingrix) (1 of 2 - Shingrix (RZV) 2 Dose Standard Series) 2020 Diabetic eye exam 07/01/2020 07/01/2019 Dental Oral Exam 01/02/2022 07/05/2021, 05/2018, 02/05/2019 Dental Prophylaxis 02/10/2022 08/10/2021 Dental X-Ray: Bitewings 07/05/2022 07/05/19 22, 02/05/2019, 02/05/2019 PSA 09/09/2022 09/09/2021, 05/0 09/2021, 09/16/2019, Additional history exists Hemoglobin A1C 09/20/2022 06/23/2022, 03/09, 12/22/2021, Additional history exists Urine Microalbumin 02/15/2023 02/15/2022, 0 09/09/2021, 09/09/2021, Additional history exists LDL monitoring 03/14/2023 03/14/2022, 110 11/2021, 09/09/2021, Additional history exists Diabetic foot exam 04/28/2023 04/28/2022, 0 07/14/2021, 08/26/2020, Additional history exists Colon cancer screening, Colonoscopy 09/03/2030 09/03/2020, 09/03/2020, 03/20/2012 Tetanus adult (Td q 10,TDAP once) 03/24/2032 03/24/2022, 10/05/2016 RSV Discussion (1 - 1-dose 75+ series) 2045 Hepatitis B vaccine series Completed 04/05, 10/05/2016, 08/17/2016 HIV screening Completed 12/10/2018 Hepatitis C screening Completed 02/06/2020, 019 Pneumococcal Vaccine Completed 03/24/2022, 01/22/20 21 Covid-19 vaccine series Completed 02/01/20 24, 04/14/2021, 08/28/2020, Additional history exists Influenza vaccine Completed 02/01/2024, , 03/24/2022, Additional history exists Meningococcal Vaccine Aged Out No sara asher eligible based on patient's age to complete this topic Procedures Procedure Name Priority Date/Time Associated Diagnosis Comments POCT GLYCOSYLATED HEMOGLOBIN (HGBA1C), TOTAL Routine 06/23/2022 4:21 PM EST Screening for diabetes mellitus (DM) LDL CHOLESTEROL, DIRECT Routine 03/14/2022 9:17 AM EST Type 2 diabetes mellitus with diabetic polyneuropathy, with long-term current use of insulin (HC Code) (HC CODE) (HC Code) ALBUMIN/CREATININE PANEL, URINE, RANDOM Routine 02/15/2022 2:02 PM EDT Localized edema Stage 3a chronic kidney disease (HC CODE) (HC Code) PSA, TOTAL (Q) Routine 09/09/2021 9:01 AM EDT Screening for prostate cancer IA PROPHYLAXIS - ADULT Routine 08/10/2021 10:45 AM EDT Encounter for dental exam and cleaning w/o abnormal findings IA BITEWINGS - FOUR RADIOGRAPHC IMAGES Routine 07/05/2021 10:30 AM EST Encounter for dental examination IA PERIODIC ORAL EVALUATION EST PT Routine 07/05/2021 10:30 AM EST Encounter for dental examination Oral frictional keratosis Partially edentulous mandible, unspecified edentulism class Secondary dental caries associated with failed or defective dental baptism Dental caries on smooth surface penetrating into dentin Localized gingival recession, moderate Primary occlusal trauma Dental caries of root surface Dental caries on smooth surface limited to enamel Localized gingivitis COLONOSCOPY (IMAGES) Routine 09/03/2020 10:16 AM EDT HEPATITIS C AB WITH REFLEX TO HCV PCR Routine 02/06/2020 7:18 AM EDT HIV 1/2 AG/AB, W/REFLEXES (Q) Routine 12/10/2018 10:32 AM EDT Psychiatric diagnosis Hyperlipidemia associated with type 2 diabetes mellitus (HC Code) Type 2 diabetes mellitus with diabetic polyneuropathy, with long-term current use of insulin (HC Code) Essential hypertension from Last 3 Months or Most Recently Relevant to Health Maintenance Results * (ABNORMAL) POCT HgbA1c, total CPT: 98848 (06/23/2022 4:21 PM EST) Pathologist [facility] Hemoglobin A1C, POC 10.6 4.0 - 6.0 % [facility] Test Lot Number [id number] [facility] Test Lot Exp Date 09/18/22 Date Format: MM/DD/YYYY [facility] Blood specimen (specimen) 06/23/2022 4:21 PM EST Deep Pruitt APRN POINT OF CARE TEST ORDERABL ES Final Result Performing Organization Address City/[facility]/ZIP Co de Phone Number [facility] * (ABNORMAL) LDL cholesterol, direct (03/14/2022 9:17 AM EST) Pathologist [facility] Direct LDL 101(H) <100 mg/dL [facility] Comment: Greatly elevated Triglycerides values (>1200 mg/dL) interfere with the dLDL assay. As no Triglycerides testing was ordered, interpret results with caution. Desirable range <100 mg/dL for primary prevention; ?? <70 mg/dL for patients with CHD or diabetic patients with > or = 2 CHD risk factors. Blood 03/14/2022 9:17 AM EST 03/14/2022 9:18 AM EST Narrative Resulting Agency Comment Performing Lab: ?Site ID: [id number] ?Name: [facility] ?Address: [address] [place] [address], [place] [address] ?Director: Yadira [place] M.D. Deep Pruitt APRN LAB BLOOD ORDERABLES Final Result [facility] [address] [place] [address] * (ABNORMAL) Albumin/creatinine panel, urine, random (02/15/2022 2:02 PM EDT) Pathologist [facility] Albumin, Urine, Random 1,885.3 Reference Range Not Established mg/L 02/15/2022 3:42 PM EDT [facility] Creatinine, Urine, Random 60 Reference Range Not Established mg/dL 02/15/2022 3:42 PM EDT [facility] Albumin/Creatin ine Ratio, Urine, Random 3,168.6(H ) <30.0 mg/g Cr 02/15/2022 3:42 PM EDT [facility] Comment: Moderately increased albuminuria (formerly microalbuminuria): ??30-300 mg/g Cr Significantly increased albuminuria (overt albuminuria): ? >300 mg/g Cr Urine Collection / Unknown 02/15/2022 2:02 PM EDT 02/15/2022 2:59 PM EDT Yue Dominguez PERFECT BINDER FEEDER OFFBEARER URINE ORDERABLES Final Res ult [facility] [address] [place] [address] * PSA, total (Q) (09/09/2021 9:01 AM EDT) Prostate Specific Antigen Total 0.44 < OR = 4.00 ng/mL [facility] Comment: The total PSA value from this assay system is standardized against the WHO standard. The test result will be approximately 20% lower when compared to the equimolar-standardized total PSA (Jana Kinsman). Comparison of serial PSA results should be interpreted with this fact in mind. This test was performed using the Siemens chemiluminescent method. Values obtained from different assay methods cannot be used interchangeably. PSA levels, regardless of value, should not be interpreted as absolute evidence of the presence or absence of disease. Blood 09/09/2021 9:01 AM EDT 09/09/2021 9:02 AM EDT Narrative [facility] - 09/13/2021 5:13 PM EDT FASTING:YES FASTING: YES Resulting Agency Comment Performing Lab: ?Site ID: [id number] ?Name: [facility] ?Address: [address] [place] [address], [place] [address] ?Director: Yadira [place] M.D. us Deep Pruitt PERFECT BINDER FEEDER OFFBEARER LAB BLOOD ORDERABLES Final Result [facility] [address] * Colonoscopy (09/03/2020 10:16 AM EDT) [facility] Colonoscopy [facility] Patient Name: Darrel Bhardwaj ? Procedure Date: 09/03/2020 10:16 AM ?Date of : 1970 Age: 50 ? Admit Type: Outpatient Gender: Male ?CSN #: [id number] Note Status: Finalized ?Procedure Date no Time: 09/03/2020 Attending MD: Nolan Sylvester , ? Procedure: ? Colonoscopy Indications: ? High risk colon cancer surveillance: Personal history of ? colonic polyps Providers: ? Nolan Llor (Doctor) Medicines: ? Monitored Anesthesia Care Complications: ? No immediate complications. Requesting Provider: Procedure: ? Pre-Anesthesia Assessment: ? - Prior to the procedure, a History and Physical was ? performed, and patient medications and allergies were ? reviewed. The patient is competent. The risks and ? benefits of the procedure and the sedation options and ? risks were discussed with the patient. All questions ? were answered and informed consent was obtained. Patient ? identification and proposed procedure were verified by ? the physician in the pre-procedure area. Mental Status ? Examination: alert and oriented. Airway Examination: ? normal oropharyngeal airway and neck mobility. ? Respiratory Examination: clear to auscultation. CV ? Examination: normal. Prophylactic Antibiotics: The ? patient does not require prophylactic antibiotics. Prior ? Anticoagulants: The patient has taken no previous ? anticoagulant or antiplatelet agents. ASA Grade ? Assessment: III - A patient with severe systemic ? disease. After reviewing the risks and benefits, the ? patient was deemed in satisfactory condition to undergo ? the procedure. The anesthesia plan was to use monitored ? anesthesia care (MAC). Immediately prior to ? administration of medications, the patient was ? re-assessed for adequacy to receive sedatives. The heart ? rate, respiratory rate, oxygen saturations, blood ? pressure, adequacy of pulmonary ventilation, and ? response to care were monitored throughout the ? procedure. The physical status of the patient was ? re-assessed after the procedure. ? After obtaining informed consent, the scope was passed ? under direct vision. Throughout the procedure, the ? patient's blood pressure, pulse, and oxygen saturations ? were monitored continuously. The was introduced through ? the anus and advanced to the cecum, identified by ? appendiceal orifice and ileocecal valve. The ileocecal ? valve, appendiceal orifice, and rectum were ? photographed. The entire colon was visualized. The ? colonoscopy was performed without difficulty. The ? patient tolerated the procedure well. The quality of the ? bowel preparation was evaluated using the BBPS ([place] ? Bowel Preparation Scale) with scores of: Right Colon = 2 ? (minor amount of residual staining, small fragments of ? stool and/or opaque liquid, but mucosa seen well), ? Transverse Colon = 2 (minor amount of residual staining, ? small fragments of stool and/or opaque liquid, but ? mucosa seen well) and Left Colon = 2 (minor amount of ? residual staining, small fragments of stool and/or ? opaque liquid, but mucosa seen well). The total BBPS ? score equals 6. ? Findings: ? The perianal and digital rectal examinations were normal. ? A 4 mm polyp was found in the cecum. The polyp was semi-pedunculated. ? The polyp was removed with a cold biopsy forceps. Resection and ? retrieval were complete. Verification of patient identification for the ? specimen was done by the nurse using the patient's name, date and ? medical record number. Estimated blood loss: none. ? The exam was otherwise without abnormality. ? Impression: ?- One 4 mm polyp in the cecum, removed with a cold ? biopsy forceps. Resected and retrieved. ? - The examination was otherwise normal. Recommendation: ?- Discharge patient to home. ? - Discharge patient to home (ambulatory). ? - Resume previous diet. ? - Continue present medications. ? - Await pathology results. ? - Repeat colonoscopy date to be determined after pending ? pathology results are reviewed for surveillance. ? Procedure Code(s): ?? --- Professional --- ? 69243, Colonoscopy, flexible; with biopsy, single or ? multiple Diagnosis Code(s): ?? --- Professional --- ? Z86.010, Personal history of colonic polyps ? D12.0, Benign neoplasm of cecum CPT copyright 2018 [employer]. All rights reserved. The codes documented in this report are preliminary and upon product safety officer review may be revised to meet current compliance requirements. Attending Participation: ? I personally performed the entire procedure. ? Nolan Sylvester, 09/03/2020 11:04:33 AM This report has been signed electronically. Number of Addenda: 0 Note Initiated On: 09/03/2020 10:16 AM Scope Withdrawal Time: 0 hours 10 minutes 36 seconds Total Procedure Duration: 0 hours 16 minutes 57 seconds Estimated Blood Loss: ? Estimated blood loss: none. Scope In: 10:41:36 AM Scope Out: 10:58:33 AM [facility] 09/03/2020 10:1 6 AM EDT Provider Not In System GI PROCEDURE ORDERABLES F inal Result Performing Organization Address [facility] Co de Phone Number [facility] * Hepatitis C Ab with reflex to HCV PCR (02/06/2020 7:18 AM EDT) Hepatitis C Antibody Negative Negative 02/06/2020 4:21 PM EDT [facility] Comment:A negative result do es not exclude HCV infection, since antibodies are not detectable for 4-8 weeks after initial infection, or may not develop in compromised hosts. In high-risk individuals, repeat antibody testing in 2 months and/or HCV RNA PCR should be considered. Blood Venipuncture / Unknown 02/06/2020 7:18 AM EDT 02/06/2020 8:06 AM EDT Jordyn Hills PERFECT BINDER FEEDER OFFBEARER LAB BLOOD ORDERABLES Fauzia l Result Performing Organization Address [facility] de Phone Number [facility]IC[facility] [address] [place] [address] * HIV 1/2 ag/ab, w/reflexes (Q) (12/10/2018 10:32 AM EDT) HIV Ag/Ab, 4th Generation NON-REACT NICKIE NON-REACT NICKIE [facility] Comment: HIV-1 antigen and HIV-1/HIV-2 antibodies were not detected. There is no laboratory evidence of HIV infection. PLEASE NOTE: This information has been disclosed to you from records whose confidentiality may be protected by state law. ??If your state requires such protection, then the state law prohibits you from making any further disclosure of the information without the specific written consent of the person to whom it pertains, or as otherwise permitted by law. A general authorization for the release of medical or other information is NOT sufficient for this purpose. ?? For additional information please refer to http://education.Upworthy.Taskforce/faq/QYO016 (This link is being provided for informational/ educational purposes only.) The performance of this assay has not been clinically validated in patients less than 2 years old. Blood 12/10/2018 10:3 2 AM EDT 12/10/2018 10:32 AM EDT Carlos Eduardo Joyner MD LAB BLOOD ORDERABLES Fi nal Result [facility] [address] [place] [address] from Last 3 Months or Most Recently Relevant to Health Maintenance Insurance [place] Advance Directives * Full ACLS (Latest Code Status on File) Date Activated Date Inactivated Comments 02/04/2020 9:46 PM 02/07/2020 8:23 PM Question Answer Comments With Whom was the Code Status Discussed? Patient Care Teams Java Security Engineer Relationship Specialty Start Date End Date Deep Pruitt APRN PCP - General 05/22/19
--- OUTSIDE RECORDS SUMMARY | 2024-06-03 17:53 | XMS_ITS | Encounter Summary ---
Author Organization [facility] Address [address] [place] [address] Care Team Providers Care Entertainment Agent Name Role Phone Romelia Pruittian Niko LOPEZ Primary Care Provider Reason for Visit * Reason Comments Medication Refill Encounter Details Date Type Department Care Team ([facility] st Contact Info) Description 09/16/2021 Refill [facility] [address] [place] [address] Carlos Eduardo Joyner MD [address] [place] [phone] Medication Refill Social History Tobacco Use [...] any clubs o r organizations such as jewish groups, unions, fraternal or athletic groups, or [...] Date Recorded PHQ-2 Total Score 5 09/14/2021 [facility] of Occupat ional Health - Occupational [...] long-term current use of insulin (HC Code) Hyperlipidemia associated with type 2 diabetes mellitus (HC Code) documented in this encounter Additional Health Concerns Infection Onset Date Last Indicated Resolved Time COVID-19 09/29/2021 09/29/2021 10/19/2021 7:19 PM EDT Assessment Noted Time PHQ-9 Depression Total Score: 7 09/15/19 22 10:31 AM EDT documented as of this encounter Care Teams Entertainment Agent Relationship Specialty Start Date End Date Deep Pruitt APRN PCP - General 05/22/19 documented as of this encounter
--- OUTSIDE RECORDS SUMMARY | 2024-06-03 17:53 | XMS_ITS | Encounter Summary ---
Author Organization [facility] [employer] and [facility] Address [address] [place] [phone] Care Team Providers Care Industrial Chemistry Teacher Name Role Phone Romelia Pruittian Niko LOPEZ Primary Care Provider Encounter Details Date Type Department Care Team (Latest Contact Info) Description 08/10/2021 Transcribed Orders [facility] [address] [place] [address] Taylor Malagon, INDEX EDITOR [address] [place] [address] Stage 3a chronic kidney disease (CKD) (HC Code) (Primary Dx) Social History Tobacco Use Types Packs/Day Years [...] often do you attend chur ch or yazidism services? Never 01/03/2020 Do you belong to [...] Date Recorded PHQ-2 Total Score 4 07/13/2021 [facility] of Occupat ional Health - Occupational [...] have Coronavirus / COVID-19? No / Unsure 08/12/2021 10:11 AM EDT documented as of this encounter Plan of Treatment Not on file documented as of this encounter Results * Phosphorus ( GH L ) (08/10/2021 9:40 AM EDT) Phosphorus 3.5 2.2 - 4.5 mg/dL 08/10/2021 10:26 AM EDT [facility] MEDICINE Blood Venipuncture / Unknown 08/10/2021 9:40 AM EDT 08/10/2021 9:56 AM EDT Taylor Malagon APRN LAB BLOOD ORDERABLES Fauzia guzman Result [facility]ORATORY MEDICINE [address] [place] [address] documented in this encounter Visit Diagnoses Diagnosis Stage 3a chronic kidney disease (CKD) (HC Code)- Primary documented in this encounter Additional Health Concerns Infection Onset Date Last Indicated Resolved Time COVID-19 09/29/2021 09/29/2021 10/19/2021 7:19 PM EDT Assessment Noted Time PHQ-9 Depression Total Score: 11 022 2:28 PM EST documented as of this encounter Care Teams Industrial Chemistry Teacher Relationship Specialty Start Date End Date Deep Pruitt APRN PCP - General 05/22/19 documented as of this encounter
--- OUTSIDE RECORDS SUMMARY | 2024-06-03 17:53 | XMS_ITS | Encounter Summary ---
Author Organization [facility] Address [address] [place] [address] Care Team Providers Care Skiver Hand Name Role Phone Deep Pruitt APRN Primary Care Provider Reason for Visit * Reason Comments Medication Refill Encounter Details Date Type Department Care Team ([facility] st Contact Info) Description 09/23/2020 Refill [facility] [address] [place] [address] Deep Pruitt APRN [address] [place] [phone] Medication Refill Social History Tobacco Use [...] Answer Date Recorded PHQ-2 Score 2 07/07/2020 [employer] of Occupat ional [facility] - Occupational Stress Questionnaire Answer Date [...] have Coronavirus / COVID-19? No / Unsure 09/24/2020 9:35 AM EDT documented as of this encounter [...] documented as of this encounter Care Teams Skiver Hand Relationship Specialty Start Date End Date Deep Pruitt APRN PCP - General 05/22/19 documented as of this encounter
--- OUTSIDE RECORDS SUMMARY | 2024-06-03 17:53 | XMS_ITS | Encounter Summary ---
Author Organization [facility] Address [address] [place] [address] Care Team Providers Care Deputy Juvenile Officer Name Role Phone Romelia Pruittian Niko LOPEZ Primary Care Provider Encounter Details Date Type Department Care Team (Late st Contact Info) Description 08/09/2021 Scanned Document [facility] [address] [place] [address] External, Provider Social History Tobacco Use Types [...] often do you attend chur ch or synagogue services? Never 01/03/2020 Do you belong to [...] Date Recorded PHQ-2 Total Score 4 07/13/2021 [facility] of Occupat [...] documented as of this encounter Care Teams Deputy Juvenile Officer Relationship Specialty Start Date End Date Deep Pruitt APRN PCP - General 05/22/19 documented as of this encounter
== END 2024-06-03 13:21 | disposition home or self-care (01) ==
LOC: HO.HBST 13:12
PROVIDERS: PCP Student in an Organized Health Care Education/Training Program; Visit Provider Counselor Mental Health
DX: F32.1 Major depressive disorder, single episode, moderate (principal); F41.9 Anxiety disorder, unspecified
CPT/HCPCS: 90834

== ENCOUNTER → 2024-06-03 13:12 | Outpatient (BNVA) | payer OTHER, MEDICAID, SELFPAY | PROVIDERS: PCP Student in an Organized Health Care Education/Training Program; Visit Provider Counselor Mental Health ==

== ENCOUNTER 2024-06-11 11:14 | Outpatient (REF) | payer MEDICAID, SELFPAY ==
--- OUTSIDE RECORDS SUMMARY | 2024-06-11 12:40 | XMS_ITS | Encounter Summary ---
Author Organization [employer] Address [address] [facility] [address] [place] [address] Care Team Providers Care Novelties Sales Representative Name Role Phone Katrin Santoyo MD Primary Care Pro vider Edison Vieira MD Unavailable [phone] Joe Devi MD Unavailable [phone] Reason for Visit * Reason Onset Date Comments No Show 06/10/2024 Encounter Details Date Type Department Care Team (Late st Contact Info) Description 06/10/2024 Telephone [facility] [address] [place], [place] [phone] Shirin Albarran MD [address] [place], [place] [phone] No Show Social History Tobacco Use Types Packs/Day Years [...] encounter Miscellaneous Notes * Telephone Encounter - Amanda Cuadra - 06/10/2024 2:36 PM EST Pt no showed to appt on 06/10/2024. documented in this encounter Plan of Treatment Upcoming Encounters Date Type Department Care Team (Late st Contact Info) Description 07/01/2024 11:00 AM EST Office Visit [facility] [address] [place] [phone] documented as of this encounter Goals Goal [...] documented as of this encounter Care Teams Novelties Sales Representative Relationship Specialty Start Date End Date Katrin Santoyo MD [address] [place] [phone] PCP - General Internal Medicine 12/13/22 Edison Vieira MD [address] [place] [address] Pulmonary Disease 04/07/24 Joe Devi MD [address] [facility] 3rd [place] [address] Gastroenterology 04/07/24 Carito Roche DNP [address] [facility], [address] [place] [address] Nephrology 04/07/24 [employer] 04/11/24 documented as of this encounter
--- OUTSIDE RECORDS SUMMARY | 2024-06-11 12:40 | XMS_ITS | Encounter Summary ---
Author Organization [facility] [employer] and [facility] Address [address] [place] [phone] Care Team Providers Care Conflict Resolution Professional Name Role Phone Deep Pruitt APRN Primary Care Provider Reason for Visit * Reason Comments DME Encounter Details Date Type Department Care Team ([facility] st Contact Info) Description 05/04/2022 Documentation Sleep Medicine Program at [address] [place] [phone] Jarad De Leon MD [address] [place] [phone] Social History Tobacco Use Types Packs/Day [...] Date Recorded PHQ-2 Total Score 2 02/17/2022 [facility] of Occupat ional Health [...] documented as of this encounter Care Teams Conflict Resolution Professional Relationship Specialty Start Date End Date Deep Pruitt APRN PCP - General 05/22/19 documented as of this encounter
--- OUTSIDE RECORDS SUMMARY | 2024-06-11 12:40 | XMS_ITS | Encounter Summary ---
Author Organization [facility] Address [address] [place] [address] Care Team Providers Care Notch Grinder Name Role Phone Deep Pruitt APRN Primary Care Provider Reason for Visit * Reason Comments Medication Refill Encounter Details Date Type Department Care Team ([facility] st Contact Info) Description 06/07/2022 Refill [facility] [address] [place], [place] [phone] Deep Pruitt APRN [address] [place] [address] Medication Refill Social History Tobacco [...] often do you attend chur ch or restoration services? More than 4 times per year [...] Date Recorded PHQ-2 Total Score 2 02/17/2022 [facility] Occupat ional Health [...] documented as of this encounter Care Teams Notch Grinder Relationship Specialty Start Date End Date Deep Pruitt APRN PCP - General 05/22/19 documented as of this encounter
--- OUTSIDE RECORDS SUMMARY | 2024-06-11 12:40 | XMS_ITS | Encounter Summary ---
Author Organization [facility] Address [address] [place] [address] Care Team Providers Care Debt Counselor Name Role Phone Deep Pruitt APRN Primary Care Provider Reason for Visit * Reason Comments Other Encounter Details Date Type Department Care Team ([facility] Contact Info) Description 05/24/2022 Telephone [facility] [address] [place] [address] Deep Pruitt APRN [address] [place] [address] Other Social History Tobacco Use Types [...] you attend chur ch or gnosticism services? More than 4 times per year [...] Date Recorded PHQ-2 Total Score 2 02/17/2022 [facility] Questionnaire Answer Date [...] your living situation today? I have a [facility] place to live 05/19/2022 Sex and [...] AM EST Patient best call back number [phone]. Patient has an upcoming appt with his [...] documented as of this encounter Care Teams Debt Counselor Relationship Specialty Start Date End Date Deep Pruitt APRN PCP - General 05/22/19 documented as of this encounter
--- OUTSIDE RECORDS SUMMARY | 2024-06-11 12:41 | XMS_ITS | Encounter Summary ---
Author Organization [employer] [facility] Address [address] [facility] 7t [place] [address] Care Team Providers Care Occupational Therapy Technician Name Role Phone Katrin Santoyo MD Primary Care Pro vider Edison Vieira MD Unavailable [phone] Joe Devi MD Unavailable [phone] Reason for Visit * Reason Onset Date Comments Durable Medical Equipment 11/08/2023 Encounter Details Date Type Department Care Team (Late st Contact Info) Description 11/08/2023 Telephone [facility] [address] [place], [place] [phone] Katrin Santoyo MD [address] [place], [place] [phone] Durable Medical Equipment Social History Tobacco Use [...] 11/10/2023 11:01 AM EDT Call placed to [employer] spoke to Zhen who was informed on 10/31/23 we faxed over RX with the qty on it. He reports that what they need is the letter of medical necessity not the Rx. He reports he will fax it to [facility] at [phone] and once signed and faxed back it will be all set. Awaiting do cument. * Telephone Encounter - Mauricio Taylor - 11/08/2023 3:57 PM EDT Tc from Tanya at [employer] [facility] calling to report the DME is missing the quantity and the description please sign and refax documented in this encounter Plan of Treatment Upcoming Encounters Date Type Department Care Team (Late st Contact Info) Description 07/01/2024 11:00 AM EST Office Visit [facility] MEDICINE [address] [place] [address] documented as of this encounter Goals Goal [...] documented as of this encounter Care Teams Occupational Therapy Technician Relationship Specialty Start Date End Date Katrin Santoyo MD [address] [place] [address] PCP - General Internal Medicine 12/13/22 Edison Vieira MD [address] [place] [address] Pulmonary Disease 04/07/24 Joe Devi MD [address] [facility] 3rd [place] [address] Gastroenterology 04/07/24 Carito Roche DNP [address] [facility], [address] [place] [address] Nephrology 04/07/24 [employer] 04/11/24 documented as of this encounter
--- OUTSIDE RECORDS SUMMARY | 2024-06-11 12:41 | XMS_ITS | Encounter Summary ---
Author Organization [facility] Address [address] [place] [address] Care Team Providers Care Document Coordinator Name Role Phone Deep Pruitt APRN Primary Care Provider Reason for Visit * Reason Comments Other Encounter Details Date Type Department Care Team ([facility] Contact Info) Description 05/19/2020 Telephone [facility] [address] [place] [address] Deep Pruitt APRN [address] [place] [address] Other Social History Tobacco Use [...] Answer Date Recorded PHQ-2 Score 0 03/13/2020 [facility] of Occupat ional [...] to his gout, call back number is [phone] documented in this encounter Plan of Treatment [...] documented as of this encounter Care Teams Document Coordinator Relationship Specialty Start Date End Date Deep Pruitt APRN PCP - General 05/22/19 documented as of this encounter
--- OUTSIDE RECORDS SUMMARY | 2024-06-11 12:41 | XMS_ITS | Encounter Summary ---
Author Organization [employer] Address [address] [facility] 7t [place] [address] Care Team Providers Care Computer Operations Manager Name Role Phone Katrin Santoyo MD Primary Care Pro vider Edison Vieira MD Unavailable [phone] Joe Devi MD Unavailable [phone] Reason for Visit * Reason Comments Med Refill Encounter Details Date Type Department Care Team ([facility] st Contact Info) Description 05/12/2024 Refill [facility] [address] [place] [phone] Katrin Santoyo MD [address] [place] [address] Social History Tobacco Use Types Packs/Day Years [...] Description 07/01/2024 11:00 AM EST Office Visit [facility] [address] [place] [address] documented as of this encounter Goals Goal [...] documented as of this encounter Care Teams Computer Operations Manager Relationship Specialty Start Date End Date Katrin Santoyo MD [address] [place] [address] PCP - General Internal Medicine 12/13/22 Edison Vieira MD [address] [place] [address] Pulmonary Disease 04/07/24 Joe Devi MD [address] 3rd [place] [address] Gastroenterology 04/07/24 Carito Roche DNP [address], [address] [place] [address] Nephrology 04/07/24 [facility] 04/11/24 documented as of this encounter
--- OUTSIDE RECORDS SUMMARY | 2024-06-11 12:41 | XMS_ITS | Encounter Summary ---
Author Organization [employer] Address [address] [facility] [address] 7t [place] [address] Care Team Providers Care Electric Meter Inspector Name Role Phone Katrin Santoyo MD Primary Care Pro vider Edison Vieira MD Unavailable [phone] Joe Devi MD Unavailable [phone] Reason for Visit * Reason Comments Med Refill Encounter Details Date Type Department Care Team ([facility] st Contact Info) Description 02/11/2024 Refill [facility] [address] [place] [address] Moriah Herbert FNP [address] [place] [address] Chronic radicular lumbar pain Social History Tobacco [...] Description 07/01/2024 11:00 AM EST Office Visit [facility] [address] [place] [address] documented as of this encounter Goals Goal [...] documented as of this encounter Care Teams Electric Meter Inspector Relationship Specialty Start Date End Date Katrin Santoyo MD [address] [place] [address] PCP - General Internal Medicine 12/13/22 Edison Vieira MD [address] [place] [address] Pulmonary Disease 04/07/24 Joe Devi MD [address] 3rd [place] [address] Gastroenterology 04/07/24 Carito Roche DNP [address], [address] [place] [address] Nephrology 04/07/24 [employer] 04/11/24 documented as of this encounter
--- OUTSIDE RECORDS SUMMARY | 2024-06-11 12:41 | XMS_ITS | Encounter Summary ---
Author Organization [employer] Address [address] [facility] 7t [place] [address] Care Team Providers Care General Purchasing Agent Name Role Phone Katrin Santoyo MD Primary Care Pro vider Edison Vieira MD Unavailable [phone] Joe Devi MD Unavailable [phone] Reason for Visit * Reason Onset Date Comments Nurse Triage 06/06/2024 Encounter Details Date Type Department Care Team (Late st Contact Info) Description 06/06/2024 Telephone [facility] MEDICINE [address] [place], [place] [phone] Katrin Santoyo MD [address] [place], [place] [phone] Nurse Triage Social History Tobacco Use Types [...] Miscellaneous Notes * Telephone Encounter - Susan ManzanoCALDERON - 06/06/2024 3:56 PM EST Triage call returned to patient with BLS 'Roger # [id number]. Patient with noted elevated BP from PT Roberta as per intake call. Patient reports that he at home has noted BP to be high as well. Taken by wifeat time of call and is 145/92. Confirms use of lasix, norvasc and coreg as previously ordered. Patient feels that diet that he strictly following has caused BG to go down and BP to go up. Patient denies feeling anxious. No facial numbness weakness chest pain on shortness of breath. No headache or blurred vision. Disposition reviewed and patient in agreement with plan. No PCP or Team appts available. ASK/ at 1130am. Reviewed with patient home care recommendations, reasons to call back and symptoms that require immediate evaluation in UC or ER. Patient verbalized understanding and agrees. Protocol Used: Blood Pressure - High (Adult) Protocol-Based Disposition: See in Office or Video Visit within 2 Weeks Video visit offer not recorded Positive Triage Question: * Systolic BP >= 130 OR Diastolic >= 80, and is taking BP medications * All higher-acuity triage questions were negative Care Advice Discussed: * High Blood Pressure * Reasons To Call Back - Headache, blurred vision, difficulty talking, or difficulty walking occurs - Chest pain or difficulty breathing occurs - You want to go into the office for a blood pressure check - You become worse * Telephone Encounter - Pete Esteban - 06/06/2024 2:26 PM EST Symptom: High Blood Pressure - Caller Reports Outcome: Schedule a same-day appointment or talk to a nurse or provider today Reason: Caller denied all higher acuity questions The caller accepted this outcome. Contact pt at [phone] documented in this encounter Plan of Treatment Upcoming Encounters Date Type Department Care Team (Late st Contact Info) Description 07/01/2024 11:00 AM EST Office Visit [facility] MEDICINE [address] [place] [address] documented as of this encounter Goals Goal Patient Goal Type Associated Problems Recent Progress Patient-Stated? Author Blood Pressure < 140/90 Blood Pressure 158/90(2023 10:23 AM EST) No [employer]-Eve Grier, PharmD Hemoglobin A1c < 7 Result Component 12.5(03/27/20 3:40 PM EST) No Eve Guzman, PharmD documented as of this encounter Visit Diagnoses Not on filedocumented in this encounter Additional Health Concerns Assessment Noted Time PHQ-9 Depression Total Score: 4 10/31/19 10:32 AM EDT documented as of this encounter Care Teams General Purchasing Agent Relationship Specialty Start Date End Date Katrin Santoyo MD [address] [place] [address] PCP - General Internal Medicine 12/13/22 Edison Vieira MD [address] [place] [address] Pulmonary Disease 04/07/24 Joe Devi MD 11 [facility] 3rd [place] [address] Gastroenterology 04/07/24 Carito Roche, [address], [address] [place] [address] Nephrology 04/07/24 [employer] 04/11/24 documented as of this encounter
--- OUTSIDE RECORDS SUMMARY | 2024-06-11 12:41 | XMS_ITS | Encounter Summary ---
Author Organization [facility] Address [address] [place] [address] Care Team Providers Care Dismantler Name Role Phone Deep Pruitt JOHN Primary Care Provider Reason for Visit * Reason Comments Medication Refill Encounter Details Date Type Department Care Team (Late st Contact Info) Description 07/20/2020 Refill [facility] Podiatry at [address] [place] [phone] Arben Fountain, [employer] [address] [place] [address] Medication Refill Social History Tobacco Use [...] often do you attend chur ch or jain services? Never 01/03/2020 Do you belong to [...] Answer Date Recorded PHQ-2 Score 2 07/07/2020 [facility] of Occupat ional Health - [...] documented as of this encounter Care Teams Dismantler Relationship Specialty Start Date End Date Deep Pruitt APRN PCP - General 05/22/19 documented as of this encounter
--- OUTSIDE RECORDS SUMMARY | 2024-06-11 12:41 | XMS_ITS | Encounter Summary ---
Author Organization [facility] Address [address] [place] [address] Care Team Providers Care Ship Self Defense System Mk1 Operator Name Role Phone Deep Pruitt APRN Primary Care Provider [phone] Reason for Visit * Reason Comments Medication Refill Encounter Details Date Type Department Care Team ([facility] st Contact Info) Description 05/13/2020 Refill [facility] [employer] [address] [email or web address] [place], [place] [address] Deep Pruitt APRN [address] [place] [address] Medication Refill Social History Tobacco [...] Answer Date Recorded PHQ-2 Score 0 03/13/2020 [facility] of Occupat ional Health - Occupational Stress [...] documented as of this encounter Care Teams Ship Self Defense System Mk1 Operator Relationship Specialty Start Date End Date Deep Pruitt APRN PCP - General 05/22/19 documented as of this encounter
--- OUTSIDE RECORDS SUMMARY | 2024-06-11 12:41 | XMS_ITS | Encounter Summary ---
Author Organization [facility] Address [address] [place] [address] Care Team Providers Care Building Mechanic Name Role Phone Sonal Deep Niko LOPZE Primary Care Provider [phone] Reason for Visit * Reason Comments Medication Refill Encounter Details Date Type Department Care Team ([facility] st Contact Info) Description 05/03/2021 Refill [facility] [address] [place] [address] Aliya Pond, [address] [address] Medication Refill Social History Tobacco [...] Date Recorded PHQ-2 Total Score 0 04/21/2021 [facility] - Occupational Stress Questionnaire [...] documented as of this encounter Care Teams Building Mechanic Relationship Specialty Start Date End Date Deep Pruitt APRN PCP - General 05/22/19 documented as of this encounter
--- OUTSIDE RECORDS SUMMARY | 2024-06-11 12:41 | XMS_ITS | Encounter Summary ---
Author Organization [facility] Address [address] [place] [address] Care Team Providers Care Front Load Trash Truck Driver Name Role Phone Deep Pruitt APRN Primary Care Provider [phone] Reason for Visit * Reason Comments Medication Refill Encounter Details Date Type Department Care Team ([facility] st Contact Info) Description 07/29/2020 Refill [facility] [address] [place], [place] [phone] Deep Pruitt, JOHN [address] [place] [address] Medication Refill Social History Tobacco Use [...] any clubs o r organizations such as gnosticist groups, unions, fraternal or athletic groups, or [...] Answer Date Recorded PHQ-2 Score 2 07/07/2020 [facility] of Occupat ional [facility] - Occupational Stress Questionnaire Answer Date [...] documented as of this encounter Care Teams Front Load Trash Truck Driver Relationship Specialty Start Date End Date Deep Pruitt APRN PCP - General 05/22/19 documented as of this encounter
--- OUTSIDE RECORDS SUMMARY | 2024-06-11 12:41 | XMS_ITS | Encounter Summary ---
Author Organization [facility] Address [address] [place] [address] Care Team Providers Care Right Of Way Manager Name Role Phone Deep Pruitt APRN Primary Care Provider Reason for Visit * Reason Comments Medication Refill Encounter Details Date Type Department Care Team ([facility] st Contact Info) Description 02/25/2022 Refill [facility] TRANS[facility] [address] [place], [place] [phone] Deep Pruitt, JOHN [address] [place] [address] Medication Refill Social History Tobacco Use [...] Date Recorded PHQ-2 Total Score 2 02/17/2022 [facility] of Occupat ional Health - Occupational [...] documented as of this encounter Care Teams Right Of Way Manager Relationship Specialty Start Date End Date Deep Pruitt APRN PCP - General 05/22/19 documented as of this encounter
--- OUTSIDE RECORDS SUMMARY | 2024-06-11 12:41 | XMS_ITS | Encounter Summary ---
Author Organization [facility] Address [address] [place] [address] Care Team Providers Care Skills Auditor Name Role Phone Deep Pruitt APRN Primary Care Provider Encounter Details Date Type Department Care Team (Late st Contact Info) Description 04/08/2021 Lab Requisition [facility] Specimens [address] [place] [address] Isha Brown APRN [address] [place] [address] Persons encountering health services in [...] often do you attend chur ch or congregational services? Never 01/03/2020 Do you belong to [...] Date Recorded PHQ-2 Total Score 1 03/24/2021 [facility] - Occupational Stress Questionnaire [...] Date/Time Associated Diagnosis Comments BLOOD GAS, ARTERIAL ([facility]) Routine 04/08/2021 12:44 PM EST documented in this encounter Results * (ABNORMAL) Blood gas, arterial () (04/08/2021 12:44 PM EST) pH Arterial 7.37 7.35 - 7.45 units 04/08/2021 12:54 PM [facility] DEPARTMENT OF LABORATORY MEDICINE pCO2, Arterial 49(H) 32 - 48 mmHg 04/08/20 21 12:54 PM [facility] DEPARTMENT OF LABORATORY MEDICINE pO2, Arterial 65(L) 83 - 108 mmHg 04/08/2021 12:54 PM [facility] DEPARTMENT OF LABORATORY MEDICINE O2 Sat, Arterial 89(L) 94 - 98 % 04/08/20 12:54 PM [facility] DEPARTMENT OF LABORATORY MEDICINE Calculated HCO3, Arterial 27.5 21.0 - 28.0 mmol/L 04/08/2021 12:54 PM [facility] DEPARTMENT OF LABORATORY MEDICINE Base Excess, Arterial 2 -2 - 3 mmol/L 04/08/2021 12:54 PM [facility] DEPARTMENT OF LABORATORY MEDICINE Patient Temperature 37.0 Celsius 04/08/2021 12:54 PM EST [facility] DEPARTMENT OF LABORATORY MEDICINE FIO2 21 % 04/08/2021 12:54 PM EST [facility] DEPARTMENT OF LABORATORY MEDICINE Blood, Arterial 04/08/2021 1 2:44 PM EST 04/08/2021 12:45 PM EST us Isha Brown MANAGER EMPLOYMENT LAB BLOOD ORDERABL ES Final Result Performing Organization Address City/State/[facility] de Phone Number [facility] DEPARTMENT OF LABORATORY MEDICINE [address] [place] [address] documented in this encounter Visit Diagnoses Diagnosis [...] documented as of this encounter Care Teams Skills Auditor Relationship Specialty Start Date End Date Deep Pruitt APRN PCP - General 05/22/19 documented as of this encounter
--- OUTSIDE RECORDS SUMMARY | 2024-06-11 12:41 | XMS_ITS | Encounter Summary ---
Author Organization [facility] Address [address] [place] [address] Care Team Providers Care Switchboard Operator Assistant Name Role Phone Deep Pruitt APRN Primary Care Provider Reason for Visit * Reason Comments Medication Refill Encounter Details Date Type Department Care Team (Late st Contact Info) Description 06/19/2020 Refill [facility] [address] [place], [place] [address] Janel Cummins APRN [address] [place] [phone] Medication Refill Social History Tobacco Use Types [...] Answer Date Recorded PHQ-2 Score 0 03/13/2020 [facility] of Occupat ional Health - [...] documented as of this encounter Care Teams Switchboard Operator Assistant Relationship Specialty Start Date End Date Deep Pruitt APRN PCP - General 05/22/19 documented as of this encounter
--- OUTSIDE RECORDS SUMMARY | 2024-06-11 12:41 | XMS_ITS | Encounter Summary ---
Author Organization [facility] Address [address] [place] [address] Care Team Providers Care Dietary Cook Name Role Phone Deep Pruitt APRN Primary Care Provider Reason for Visit * Reason Comments Medication Refill Encounter Details Date Type Department Care Team ([facility] st Contact Info) Description 07/10/2020 Refill [facility] [address] [place] [address] Deep Pruitt APRN [address] [place] [phone] Medication Refill Social History Tobacco Use [...] often do you attend chur ch or mormonism services? Never 01/03/2020 Do you belong to [...] Answer Date Recorded PHQ-2 Score 2 07/07/2020 [facility] of Occupat ional [facility] - Occupational Stress Questionnaire Answer Date [...] documented as of this encounter Care Teams Dietary Cook Relationship Specialty Start Date End Date Deep Pruitt APRN PCP - General 05/22/19 documented as of this encounter
--- OUTSIDE RECORDS SUMMARY | 2024-06-11 12:41 | XMS_ITS | Encounter Summary ---
Author Organization [employer] Address [address] [facility] 7t [place] [address] Care Team Providers Care Motor And Controls Tester Name Role Phone Katrin Santoyo MD Primary Care Pro vider Edison Vieira MD Unavailable [phone] Joe Devi MD Unavailable [phone] Reason for Visit * Reason Onset Date Comments Error (VOID this visit) 06/05/2024 Encounter Details Date Type Department Care Team ([facility] Contact Info) Description 06/05/2024 Telephone [facility] [address] [place] [address] Gabriela Rea, RN [address] [place] [address] Error (VOID this visit) Social History Tobacco Use Types Packs/Day Years [...] Description 07/01/2024 11:00 AM EST Office Visit [facility] MEDICINE [address] [place] [address] documented as of this encounter Goals Goal [...] documented as of this encounter Care Teams Motor And Controls Tester Relationship Specialty Start Date End Date Katrin Santoyo MD [address] [place] [address] PCP - General Internal Medicine 12/13/22 Edison Vieira MD [address] [place] [address] Pulmonary Disease 04/07/24 Joe Devi MD [address] 3rd [place] [address] Gastroenterology 04/07/24 Carito Roche DNP [address], [address] [place] [address] Nephrology 04/07/24 [employer] 04/11/24 documented as of this encounter
--- OUTSIDE RECORDS SUMMARY | 2024-06-11 12:41 | XMS_ITS | Encounter Summary ---
Author Organization [employer] Address [address] 7t [place] [address] Care Team Providers Care Agency Service Coordinator Name Role Phone Katrin Santoyo MD Primary Care Pro vider Edison Vieira MD Unavailable [phone] Joe Devi MD Unavailable [phone] Reason for Visit * Reason Comments Med Refill Encounter Details Date Type Department Care Team ([facility] st Contact Info) Description 05/17/[address] [facility] MEDICINE [address] [place] [address] Moriah Herbert FNP [address] [place] [address] Chronic radicular lumbar pain Social History Tobacco [...] Description 07/01/2024 11:00 AM EST Office Visit [facility] MEDICINE [address] [place] [address] documented as of this encounter Goals Goal [...] documented as of this encounter Care Teams Agency Service Coordinator Relationship Specialty Start Date End Date Katrin Santoyo MD [address] [place] [address] PCP - General Internal Medicine 12/13/22 Edison Vieira MD [address] [place] [address] Pulmonary Disease 04/07/24 Joe Devi MD [address] 3rd [place] [address] Gastroenterology 04/07/24 Carito Roche DNP [address], [address] [place] [address] Nephrology 04/07/24 [facility] 04/11/24 documented as of this encounter
--- OUTSIDE RECORDS SUMMARY | 2024-06-11 12:41 | XMS_ITS | Encounter Summary ---
Author Organization [employer] Address [address] 7t [place] [address] Care Team Providers Care Chief Supply Chain Officer Name Role Phone Katrin Santoyo MD Primary Care Pro vider Edison Vieira MD Unavailable [phone] Joe Devi MD Unavailable [phone] Reason for Visit * Reason Onset Date Comments FYI 06/06/2024 Encounter Details Date Type Department Care Team (Late st Contact Info) Description 06/06/2024 Telephone [facility] MEDICINE [address] [place], [place] [phone] Katrin Santoyo MD [address] [place], [place] [phone] FY Social History Tobacco Use Types Packs/Day Years [...] Telephone Encounter - Taylor Thomas RN - 06/06/2024 3:17 PM EST Noted * Telephone Encounter - Pete Esteban - 06/06/2024 2:29 PM EST Tc from Becky who is the Pt Physical Therapist staling that today was there last session and that Pt is now just gong to continue nursing. If any questions contact Becky at [phone] documented in this encounter Plan of Treatment Upcoming Encounters Date Type Department Care Team (Late st Contact Info) Description 07/01/2024 11:00 AM EST Office Visit [facility] MEDICINE [address] [place] [address] documented as of this encounter Goals Goal Patient Goal Type Associated Problems Recent Progress Patient-Stated? Author Blood Pressure < 140/90 Blood Pressure 158/90(2023 10:23 AM EST) No Piers-GambEve sheikh, PharmD Hemoglobin A1c < 7 Result Component 12.5(03/27/20 3:40 PM EST) No Nemesios-Eve Grier, PharmD documented as of this encounter Visit Diagnoses Not on filedocumented in this encounter Additional Health Concerns Assessment Noted Time PHQ-9 Depression Total Score: 4 10/31/19 24 10:32 AM EDT documented as of this encounter Care Teams Chief Supply Chain Officer Relationship Specialty Start Date End Date Katrin Santoyo MD [address] [place] [address] PCP - General Internal Medicine 12/13/22 Edison Vieira MD [address] [place] [address] Pulmonary Disease 04/07/24 Joe Devi MD [address] [place] [address] 3rd [place] [address] Gastroenterology 04/07/24 Carito Roche DNP [address], [address] [place] [address] Nephrology 04/07/24 [facility] 04/11/24 documented as of this encounter
--- OUTSIDE RECORDS SUMMARY | 2024-06-11 12:41 | XMS_ITS | Encounter Summary ---
Author Organization [employer] [facility] Address [address] [place] [address] Care Team Providers Care Casing Finisher And Stuffer Name Role Phone Sonal Deep Niko LOPEZ Primary Care Provider Reason for Visit * Reason Comments Medication Refill Encounter Details Date Type Department Care Team (Late st Contact Info) Description 05/12/2020 Refill [facility] Nutrition at [address] [address] Zena Hines PA [address] [place] [address] Medication Refill Social History Tobacco [...] Answer Date Recorded PHQ-2 Score 0 03/13/2020 [facility] of Occupat ional Health - Occupational [...] Pike Please review pt no longer seeing [facility] Wellness Dept for DM management. Katrin Sullivan [...] documented as of this encounter Care Teams Casing Finisher And Stuffer Relationship Specialty Start Date End Date Deep Pruitt APRN PCP - General 05/22/19 documented as of this encounter
--- OUTSIDE RECORDS SUMMARY | 2024-06-11 12:41 | XMS_ITS | Encounter Summary ---
Author Organization [employer] Address [address] 7t [place] [address] Care Team Providers Care Umbrella Tipper Machine Name Role Phone Katrin Santoyo MD Primary Care Pro vider Edison Vieira MD Unavailable [phone] Joe Devi MD Unavailable [phone] Reason for Visit * Reason Comments Med Refill Encounter Details Date Type Department Care Team (Late st Contact Info) Description 05/17/2024 Refill [facility] MEDICINE [address] [place], [place] [phone] Shanna Henao MD 230 [place], [place] [phone] Chronic radicular lumbar pain Social History Tobacco [...] Description 07/01/2024 11:00 AM EST Office Visit [facility] MEDICINE [address] [place] [address] documented as of this encounter Goals Goal [...] documented as of this encounter Care Teams Umbrella Tipper Machine Relationship Specialty Start Date End Date Katrin Santoyo MD [address] [place] [address] PCP - General Internal Medicine 12/13/22 Edison Vieira MD [address] [place] [address] Pulmonary Disease 04/07/24 Joe Devi MD [address] 3rd [place] [address] Gastroenterology 04/07/24 Carito Roche DNP [address], [address] [place] [address] Nephrology 04/07/24 [email or web address] 04/11/24 documented as of this encounter
--- OUTSIDE RECORDS SUMMARY | 2024-06-11 12:41 | XMS_ITS | Encounter Summary ---
Author Organization [employer] [facility] Address [address] [place] [address] Care Team Providers Care Director Retirement Name Role Phone Deep Pruitt APRN Primary Care Provider Reason for Visit * Reason Comments Medication Refill Encounter Details Date Type Department Care Team ([facility] st Contact Info) Description 06/19/2020 Refill [facility] [address] [place] [address] Deep Pruitt APRN [address] [place] [phone] Medication Refill Social History Tobacco Use [...] any clubs o r organizations such as samaritan groups, unions, fraternal or athletic groups, or [...] Answer Date Recorded PHQ-2 Score 0 03/13/2020 [facility] of Occupat ional Health - [...] documented as of this encounter Care Teams Director Retirement Relationship Specialty Start Date End Date Deep Pruitt APRN PCP - General 05/22/19 documented as of this encounter
--- OUTSIDE RECORDS SUMMARY | 2024-06-11 12:41 | XMS_ITS | Encounter Summary ---
Author Organization [employer] [facility] Address [address] [place] [address] Care Team Providers Care Music Video Producer Name Role Phone Deep Pruitt APRN Primary Care Provider [phone] Reason for Visit * Reason Comments Medication Refill Encounter Details Date Type Department Care Team ([facility] st Contact Info) Description 06/19/2020 Refill [facility] [address] [place] [address] Deep Pruitt APRN [address] [place] [phone] Medication Refill Social History Tobacco Use [...] Answer Date Recorded PHQ-2 Score 0 03/13/2020 [facility] of Occupat ional Health - Occupational [...] documented as of this encounter Care Teams Music Video Producer Relationship Specialty Start Date End Date Deep Pruitt APRN PCP - General 05/22/19 documented as of this encounter
--- OUTSIDE RECORDS SUMMARY | 2024-06-11 12:41 | XMS_ITS | Encounter Summary ---
Author Organization [employer] [facility] Address [address] [place] [address] Care Team Providers Care Deputy Building Guard Name Role Phone Snoal Deep Niko LOPEZ Primary Care Provider Reason for Visit * Reason Comments Medication Refill Encounter Details Date Type Department Care Team (Late st Contact Info) Description 04/07/2021 Refill [facility] Nutrition at [address] [address] Zena Hines PA [address] [place] [phone] Medication Refill Social History Tobacco Use [...] often do you attend chur ch or oriental orthodox services? Never 01/03/2020 Do you belong to [...] Date Recorded PHQ-2 Total Score 1 03/24/2021 [facility] of Occupat ional Health - [...] seeing Zena Hines for DM management at [facility]. Thanks, Katrin documented in this encounter Plan [...] as of this encounter Care Teams Deputy Building Guard Relationship Specialty Start Date End Date Deep Pruitt APRN PCP - General 05/22/19 documented as of this encounter
--- OUTSIDE RECORDS SUMMARY | 2024-06-11 12:41 | XMS_ITS | Encounter Summary ---
Author Organization [facility] Address [address] [place] [address] Care Team Providers Care Automatic Spinning Lathe Setter Name Role Phone Deep Pruitt Niko LOPEZ Primary Care Provider Reason for Visit * Reason Comments Medication Refill Encounter Details Date Type Department Care Team (Late st Contact Info) Description 05/06/[address] [phone] Arben Fountain, NOLVIA [address] [place] [address] Medication Refill Social History Tobacco Use [...] Answer Date Recorded PHQ-2 Score 0 03/13/2020 [facility] of Occupat ional Health [...] documented as of this encounter Care Teams Automatic Spinning Lathe Setter Relationship Specialty Start Date End Date Deep Pruitt APRN PCP - General 05/22/19 documented as of this encounter
--- OUTSIDE RECORDS SUMMARY | 2024-06-11 12:41 | XMS_ITS | Encounter Summary ---
Author Organization [facility] Address [address] [place] [address] Care Team Providers Care Tents Assembler Name Role Phone Deep Pruitt APRN Primary Care Provider Reason for Visit * Reason Comments Forms Encounter Details Date Type Department Care Team ([facility] Contact Info) Description 06/16/2020 Telephone [facility] [address] [place] [address] Deep Pruitt APRN [address] [place] [phone] Forms Social History Tobacco Use Types [...] Answer Date Recorded PHQ-2 Score 0 03/13/2020 [facility] of Occupat ional Health - Occupational Stress [...] update on handicap forms for pt. Call [phone] documented in this encounter Plan of Treatment [...] documented as of this encounter Care Teams Tents Assembler Relationship Specialty Start Date End Date Deep Pruitt APRN PCP - General 05/22/19 documented as of this encounter
--- OUTSIDE RECORDS SUMMARY | 2024-06-11 12:41 | XMS_ITS | Encounter Summary ---
Author Organization [facility] Address [address] [place] [address] Care Team Providers Care Guard Captain Name Role Phone Deep Pruitt APRN Primary Care Provider Encounter Details Date Type Department Care Team (Late st Contact Info) Description 06/11/2021 Documentation [facility] [address] [facility], 2nd floor [facility], [address] [place], [place] [phone] Isha Brown APRN [address] [place] [address] Social History Tobacco Use Types [...] any clubs o r organizations such as synagogue groups, unions, fraternal or athletic groups, or [...] Date Recorded PHQ-2 Total Score 3 05/31/2021 [facility] of Occupat ional [...] documented as of this encounter Care Teams Guard Captain Relationship Specialty Start Date End Date Deep Pruitt APRN PCP - General 05/22/19 documented as of this encounter
--- OUTSIDE RECORDS SUMMARY | 2024-06-11 12:41 | XMS_ITS | Encounter Summary ---
Author Organization [employer] [facility] Address [address] [place] [address] Care Team Providers Care Retirement Specialist Name Role Phone Deep Pruitt APRN Primary Care Provider Reason for Visit * Reason Comments Medication Refill Encounter Details Date Type Department Care Team ([facility] st Contact Info) Description 03/19/2022 Refill [facility] [address] [place], [place] [phone] Deep Pruitt, JOHN [address] [place] [address] Medication Refill Social History Tobacco [...] any clubs o r organizations such as buddhism groups, unions, fraternal or athletic groups, or [...] Recorded PHQ-2 Total Score 2 02/17/2022 [facility] of Occupat ional [...] documented as of this encounter Care Teams Retirement Specialist Relationship Specialty Start Date End Date Deep Pruitt APRN PCP - General 05/22/19 documented as of this encounter
--- OUTSIDE RECORDS SUMMARY | 2024-06-11 12:41 | XMS_ITS | Encounter Summary ---
Author Organization [facility] Address [address] [place] [address] Care Team Providers Care Launderer Hand Name Role Phone Deep Pruitt APRN Primary Care Provider Encounter Details Date Type Department Care Team ([facility] st Contact Info) Description 06/13/2020 Scanned Document [facility] [address] [place], [place] [phone] Deep Pruitt APRN [address] [place] [address] Social History Tobacco Use Types [...] any clubs o r organizations such as tenriism groups, unions, fraternal or athletic groups, or [...] Answer Date Recorded PHQ-2 Score 0 03/13/2020 [facility] of Occupat ional Health - Occupational Stress [...] documented as of this encounter Care Teams Launderer Hand Relationship Specialty Start Date End Date Deep Pruitt APRN PCP - General 05/22/19 documented as of this encounter
--- OUTSIDE RECORDS SUMMARY | 2024-06-11 12:41 | XMS_ITS | Encounter Summary ---
Author Organization [employer] [facility] Address [address] [place] [address] Care Team Providers Care Arboriculturist Name Role Phone Deep Pruitt JOHN Primary Care Provider Reason for Visit * Reason Comments Medication Refill Encounter Details Date Type Department Care Team (Late st Contact Info) Description 05/12/2021 Refill [facility] Podiatry at [address] [place] [phone] Arben Fountain, NOLVIA [address] [place] [address] Medication Refill Social History Tobacco Use [...] Date Recorded PHQ-2 Total Score 0 04/21/2021 [facility] - Occupational Stress Questionnaire Answer [...] documented as of this encounter Care Teams Arboriculturist Relationship Specialty Start Date End Date Deep Pruitt APRN PCP - General 05/22/19 documented as of this encounter
--- OUTSIDE RECORDS SUMMARY | 2024-06-11 12:41 | XMS_ITS | Encounter Summary ---
Author Organization [employer] [facility] Address [address] [place] [address] Care Team Providers Care Mortar Man Name Role Phone Sonal Deep Niko LOPEZ Primary Care Provider Reason for Visit * Reason Comments Medication Refill Encounter Details Date Type Department Care Team (Late st Contact Info) Description 07/03/2020 Refill [facility] Nutrition at [address] [address] Zena Hines PA [address] [place] [phone] Medication Refill Social History Tobacco Use [...] often do you attend chur ch or mandaen services? Never 01/03/2020 Do you belong to [...] Date Recorded PHQ-2 Score 2 07/07/2020 [facility] of Occupat ional Health - [...] for Metformin received. Pt was engaging with [facility] and continues with PCP. Unclear [...] documented as of this encounter Care Teams Mortar Man Relationship Specialty Start Date End Date Deep Pruitt APRN PCP - General 05/22/19 documented as of this encounter
--- OUTSIDE RECORDS SUMMARY | 2024-06-11 12:41 | XMS_ITS | Encounter Summary ---
Author Organization [facility] Address [address] [place] [address] Care Team Providers Care K 12 Principal Name Role Phone Sonal Deep Niko LOPEZ Primary Care Provider [phone] Reason for Visit * Reason Comments Medication Refill Encounter Details Date Type Department Care Team ([facility] st Contact Info) Description 05/05/2021 Refill [facility] [address] [place] [phone] Aliya Pond, [address] [address] Medication Refill Social History Tobacco [...] any clubs o r organizations such as congregational groups, unions, fraternal or athletic groups, or [...] Date Recorded PHQ-2 Total Score 0 04/21/2021 [facility] - Occupational Stress Questionnaire [...] documented as of this encounter Care Teams K 12 Principal Relationship Specialty Start Date End Date Deep Pruitt APRN PCP - General 05/22/19 documented as of this encounter
--- OUTSIDE RECORDS SUMMARY | 2024-06-11 12:41 | XMS_ITS | Encounter Summary ---
Author Organization [facility] [employer] [facility] Address [address] [place] [address] Care Team Providers Care Manager Assessment Name Role Phone Sonal Deep Niko LOPZE Primary Care Provider [phone] Reason for Visit * Reason Comments Medication Refill Encounter Details Date Type Department Care Team ([facility] st Contact Info) Description 05/10/2021 Refill [facility] [address] [place] [phone] Aliya Pond, [address] [address] Medication Refill Social History Tobacco [...] often do you attend chur ch or mandaeism services? Never 01/03/2020 Do you belong to [...] Date Recorded PHQ-2 Total Score 0 04/21/2021 [facility] - Occupational Stress Questionnaire [...] as of this encounter Care Teams Manager Assessment Relationship Specialty Start Date End Date Deep Pruitt APRN PCP - General 05/22/19 documented as of this encounter
--- OUTSIDE RECORDS SUMMARY | 2024-06-11 12:41 | XMS_ITS | Encounter Summary ---
Author Organization [facility] Address [address] [place] [address] Care Team Providers Care Patient Portal Representative Name Role Phone Sonal Deep Niko LOPEZ Primary Care Provider [phone] Reason for Visit * Reason Comments Medication Refill Encounter Details Date Type Department Care Team ([facility] st Contact Info) Description 04/07/2021 Refill [facility] [address] [place] [phone] Aliya Pond, [address] [address] Medication Refill Social History Tobacco [...] Date Recorded PHQ-2 Total Score 1 03/24/2021 [facility] - [...] as of this encounter Care Teams Patient Portal Representative Relationship Specialty Start Date End Date Deep Pruitt APRN PCP - General 05/22/19 documented as of this encounter
--- OUTSIDE RECORDS SUMMARY | 2024-06-11 12:41 | XMS_ITS | Encounter Summary ---
Author Organization [facility] [employer] [facility] Address [address] [place] [address] Care Team Providers Care [employer] Principal Name Role Phone Deep Pruitt APRN Primary Care Provider Reason for Visit * Reason Comments DME Encounter Details Date Type Department Care Team (Late st Contact Info) Description 04/11/2022 Documentation Sleep Medicine Program at [address] [place] [address] Jarad De Leon MD [address] [place] [phone] Social History Tobacco Use Types Packs/Day [...] documented as of this encounter Care Teams Elementary School Principal Relationship Specialty Start Date End Date Deep Pruitt APRN PCP - General 05/22/19 documented as of this encounter
--- OUTSIDE RECORDS SUMMARY | 2024-06-11 12:41 | XMS_ITS | Encounter Summary ---
Author Organization [facility] Address [address] [place] [address] Care Team Providers Care Heavy Mobile Equipment Operator Name Role Phone Sonal Deep Niko LOPEZ Primary Care Provider [phone] Reason for Visit * Reason Comments Medication Refill Encounter Details Date Type Department Care Team ([facility] st Contact Info) Description 04/12/2021 Refill [facility] [address] [place] [phone] Aliya Pond, [address] [address] Medication Refill Social History Tobacco [...] often do you attend chur ch or quaker services? Never 01/03/2020 Do you belong to any clubs o r organizations such as baptism groups, unions, fraternal or athletic groups, or [...] Date Recorded PHQ-2 Total Score 1 03/24/2021 [facility] - Occupational Stress Questionnaire Answer [...] documented as of this encounter Care Teams Heavy Mobile Equipment Operator Relationship Specialty Start Date End Date Deep Pruitt APRN PCP - General 05/22/19 documented as of this encounter
--- OUTSIDE RECORDS SUMMARY | 2024-06-11 12:41 | XMS_ITS | Encounter Summary ---
Author Organization [facility] Address [address] [place] [address] Care Team Providers Care Manufacturing Quality Inspector Name Role Phone Deep Pruitt APRN Primary Care Provider Reason for Visit * Reason Comments Medication Refill Encounter Details Date Type Department Care Team ([facility] st Contact Info) Description 06/30/2021 Refill [facility] [address] [place], [place] [phone] Deep Pruitt APRN [address] [place] [address] Medication Refill Social History Tobacco [...] Date Recorded PHQ-2 Total Score 3 05/31/2021 [facility] of Occupat ional Health - Occupational [...] documented as of this encounter Care Teams Manufacturing Quality Inspector Relationship Specialty Start Date End Date Deep Pruitt APRN PCP - General 05/22/19 documented as of this encounter
--- OUTSIDE RECORDS SUMMARY | 2024-06-11 12:41 | XMS_ITS | Encounter Summary ---
Author Organization [facility] Address [address] [place] [address] Care Team Providers Care Inspector Air Carrier Name Role Phone Deep Pruitt APRN Primary Care Provider Reason for Visit * Reason Comments Medication Refill Encounter Details Date Type Department Care Team ([facility] st Contact Info) Description 05/27/2020 Telephone [facility] [address] [place] [address] Deep Pruitt APRN [address] [place] [address] Medication Refill Social History Tobacco [...] Answer Date Recorded PHQ-2 Score 0 03/13/2020 [facility] of Occupat ional [...] medications and request someone calls him at [phone] documented in this encounter Plan of Treatment [...] documented as of this encounter Care Teams Inspector Air Carrier Relationship Specialty Start Date End Date Deep Pruitt APRN PCP - General 05/22/19 documented as of this encounter
--- OUTSIDE RECORDS SUMMARY | 2024-06-11 12:41 | XMS_ITS | Encounter Summary ---
Author Organization [facility] Address [address] [place] [address] Care Team Providers Care Plant Chief Name Role Phone Deep Pruitt APRN Primary Care Provider [phone] Reason for Visit * Reason Comments Medication Refill Encounter Details Date Type Department Care Team ([facility] st Contact Info) Description 05/18/2020 Refill [facility] [address] [place] [address] Deep Pruitt APRN [address] [place] [phone] Medication Refill Social History Tobacco Use [...] often do you attend chur ch or worship services? Never 01/03/2020 Do you belong to [...] Answer Date Recorded PHQ-2 Score 0 03/13/2020 [facility] of Occupat ional Health - [...] documented as of this encounter Care Teams Plant Chief Relationship Specialty Start Date End Date Deep Pruitt APRN PCP - General 05/22/19 documented as of this encounter
--- OUTSIDE RECORDS SUMMARY | 2024-06-11 12:41 | XMS_ITS | Encounter Summary ---
Author Organization [facility] Address [address] [place] [address] Care Team Providers Care Vacuum Closing Machine Operator Name Role Phone Deep Pruitt APRN Primary Care Provider [phone] Encounter Details Date Type Department Care Team ([facility] st Contact Info) Description 06/25/2021 Telephone [facility] [address] [place] [address] Deep Pruitt APRN [address] [place] [address] Social History Tobacco Use Types [...] any clubs o r organizations such as presybeterian groups, unions, fraternal or athletic groups, or [...] Date Recorded PHQ-2 Total Score 3 05/31/2021 [facility] of Occupat ional Health - [...] documented as of this encounter Care Teams Vacuum Closing Machine Operator Relationship Specialty Start Date End Date Deep Pruitt APRN PCP - General 05/22/19 documented as of this encounter
--- OUTSIDE RECORDS SUMMARY | 2024-06-11 12:42 | XMS_ITS | Encounter Summary ---
Author Organization [facility] Address [address] [place] [address] Care Team Providers Care Fast Food Shift Lead Name Role Phone Romelia Pruittian iNko LOPEZ Primary Care Provider Reason for Visit * Reason Onset Date Comments Medication Refill 11/10/2021 Encounter Details Date Type Department Care Team (Late st Contact Info) Description 11/10/2021 Refill [facility] [address] [facility] [address] [place] [phone] Anahi Rossi, JOHN [address] [place] [phone] Medication Refill Social History Tobacco Use [...] any clubs o r organizations such as latter-day groups, unions, fraternal or athletic groups, or [...] Recorded PHQ-2 Total Score 0 10/12/2021 [facility] of Occupat ional Health - Occupational [...] documented as of this encounter Care Teams Fast Food Shift Lead Relationship Specialty Start Date End Date Deep Pruitt APRN PCP - General 05/22/19 documented as of this encounter
--- OUTSIDE RECORDS SUMMARY | 2024-06-11 12:42 | XMS_ITS | Encounter Summary ---
Author Organization [facility] Address [address] [place] [address] Care Team Providers Care Policy Analyst Name Role Phone Deep Pruitt APRN Primary Care Provider Reason for Visit * Reason Comments Medication Refill Encounter Details Date Type Department Care Team ([facility] st Contact Info) Description 12/18/2021 Refill [facility] [address] [place], [place] [phone] Deep Pruitt APRN [address] [place] [address] Medication Refill Social History Tobacco [...] Date Recorded PHQ-2 Total Score 4 12/20/2021 [facility] of Occupat ional Health [...] documented as of this encounter Care Teams Policy Analyst Relationship Specialty Start Date End Date Deep Pruitt APRN PCP - General 05/22/19 documented as of this encounter
--- OUTSIDE RECORDS SUMMARY | 2024-06-11 12:42 | XMS_ITS | Encounter Summary ---
Author Organization [facility] Address [address] [place] [address] Care Team Providers Care Document Manager Name Role Phone Deep Pruitt APRN Primary Care Provider Reason for Visit * Reason Comments Medication Refill Encounter Details Date Type Department Care Team ([facility] st Contact Info) Description 03/20/2021 Refill [facility] [address] [place] [address] Deep Pruitt APRN [address] [place] [phone] Medication Refill Social History Tobacco Use [...] Date Recorded PHQ-2 Total Score 1 03/24/2021 [facility] of Occupat ional Health - [...] as of this encounter Care Teams Document Manager Relationship Specialty Start Date End Date Deep Pruitt APRN PCP - General 05/22/19 documented as of this encounter
--- OUTSIDE RECORDS SUMMARY | 2024-06-11 12:42 | XMS_ITS | Encounter Summary ---
Author Organization [facility] Address [address] [place] [address] Care Team Providers Care Docking Saw Operator Name Role Phone Deep Pruitt APRN Primary Care Provider Reason for Visit * Reason Comments Medication Refill Encounter Details Date Type Department Care Team ([facility] st Contact Info) Description 03/08/2021 Refill [facility] [address] [place], [place] [phone] Deep Pruitt APRN [address] [place] [address] Medication Refill Social History Tobacco [...] often do you attend chur ch or baptist services? Never 01/03/2020 Do you belong to any clubs o r organizations such as taoist groups, unions, fraternal or athletic groups, or [...] Date Recorded PHQ-2 Total Score 2 03/10/2021 [facility] of Occupat ional Health - Occupational [...] documented as of this encounter Care Teams Docking Saw Operator Relationship Specialty Start Date End Date Deep Pruitt APRN PCP - General 05/22/19 documented as of this encounter
--- OUTSIDE RECORDS SUMMARY | 2024-06-11 12:42 | XMS_ITS | Encounter Summary ---
Author Organization [facility] [employer] [facility] Address [address] [place] [address] Care Team Providers Care Keg Filler Name Role Phone Deep Pruitt APRN Primary Care Provider Reason for Visit * Reason Onset Date Comments Medication Refill 11/19/2021 Encounter Details Date Type Department Care Team (Late st Contact Info) Description 11/19/2021 Refill [facility] [address] [facility] [address] [facility] 2nd [place] [address] Yue Dominguez APRN [address] [place] [phone] Medication Refill Social History Tobacco Use Types [...] any clubs o r organizations such as latter day groups, unions, fraternal or athletic groups, or [...] Date Recorded PHQ-2 Total Score 0 11/17/2021 [facility] of Occupat ional [...] documented as of this encounter Care Teams Keg Filler Relationship Specialty Start Date End Date Deep Pruitt APRN PCP - General 05/22/19 documented as of this encounter
--- OUTSIDE RECORDS SUMMARY | 2024-06-11 12:42 | XMS_ITS | Encounter Summary ---
Author Organization [facility] Address [address] [place] [address] Care Team Providers Care Apartment Locator Name Role Phone Deep Pruitt JOHN Primary Care Provider Reason for Visit * Reason Comments Medication Refill Encounter Details Date Type Department Care Team (Late st Contact Info) Description 12/03/2021 Refill [facility] Podiatry at [address] [place] [phone] Arben Fountain, NOLVIA [address] [place] [address] Medication Refill Social History Tobacco Use [...] any clubs o r organizations such as protestant groups, unions, fraternal or athletic groups, or [...] Date Recorded PHQ-2 Total Score 0 11/17/2021 [facility] - Occupational Stress Questionnaire Answer Date [...] documented as of this encounter Care Teams Apartment Locator Relationship Specialty Start Date End Date Depe Pruitt APRN PCP - General 05/22/19 documented as of this encounter
--- OUTSIDE RECORDS SUMMARY | 2024-06-11 12:42 | XMS_ITS | Encounter Summary ---
Author Organization [facility] Address [address] [place] [address] Care Team Providers Care Boat Worker Name Role Phone Deep Pruitt APRN Primary Care Provider Reason for Visit * Reason Onset Date Comments Medication Refill 11/10/2021 Encounter Details Date Type Department Care Team (Late st Contact Info) Description 11/10/2021 [facility]ill [facility] at [address] [place] [address] Anahi Rossi, JOHN [address] [place] [address] Medication Refill Social History Tobacco [...] often do you attend chur ch or mosque services? Never 01/03/2020 Do you belong to [...] 0 10/12/2021 [facility] of Occupat ional [facility] - Occupational Stress Questionnaire Answer Date [...] documented as of this encounter Care Teams Boat Worker Relationship Specialty Start Date End Date Deep Pruitt APRN PCP - General 05/22/19 documented as of this encounter
--- OUTSIDE RECORDS SUMMARY | 2024-06-11 12:42 | XMS_ITS | Encounter Summary ---
Author Organization [facility] Address [address] [place] [address] Care Team Providers Care Telecommunications Officer Name Role Phone Romelia Pruittian Niko LOPEZ Primary Care Provider Encounter Details Date Type Department Care Team (Late st Contact Info) Description 11/30/2021 Scanned Document [facility] [address] [place] [address] External, Provider Social History Tobacco Use Types [...] Date Recorded PHQ-2 Total Score 0 11/17/2021 [facility] of Occupat ional Health - [...] documented as of this encounter Care Teams Telecommunications Officer Relationship Specialty Start Date End Date Deep Pruitt APRN PCP - General 05/22/19 documented as of this encounter
--- OUTSIDE RECORDS SUMMARY | 2024-06-11 12:42 | XMS_ITS | Encounter Summary ---
Author Organization [facility] Address [address] [place] [address] Care Team Providers Care Go Cart Mechanic Name Role Phone Deep Pruitt APRN Primary Care Provider Reason for Visit * Reason Comments Medication Refill Encounter Details Date Type Department Care Team ([facility] st Contact Info) Description 12/15/2021 Refill [facility] [address] [place], [place] [phone] Deep Pruitt APRN [address] [place] [address] Medication Refill Social History Tobacco [...] Date Recorded PHQ-2 Total Score 1 12/16/2021 [facility] of Occupat [...] documented as of this encounter Care Teams Go Cart Mechanic Relationship Specialty Start Date End Date Deep Pruitt APRN PCP - General 05/22/19 documented as of this encounter
--- OUTSIDE RECORDS SUMMARY | 2024-06-11 12:42 | XMS_ITS | Encounter Summary ---
Author Organization [facility] [employer] [facility] Address [address] [place] [address] Care Team Providers Care Asset Protection Manager Name Role Phone Deep Pruitt APRN Primary Care Provider Reason for Visit * Reason Onset Date Comments Medication Refill 11/10/2021 Encounter Details Date Type Department Care Team (Late st Contact Info) Description 11/10/2021 Refill [facility] [address] [facility] [address] [facility] 2nd [place] [address] Taylor Malagon, [facility] [address] [place] [phone] Medication Refill Social History Tobacco Use Types [...] Date Recorded PHQ-2 Total Score 0 10/12/2021 [facility] of Occupat ional [facility] - Occupational Stress Questionnaire Answer Date [...] today, but unknown at home. Defer to [facility] pharmacy team for antihypertensive management. Current regimen [...] documented as of this encounter Care Teams Asset Protection Manager Relationship Specialty Start Date End Date Deep Pruitt APRN PCP - General 05/22/19 documented as of this encounter
--- OUTSIDE RECORDS SUMMARY | 2024-06-11 12:42 | XMS_ITS | Encounter Summary ---
Author Organization [facility] Address [address] [place] [address] Care Team Providers Care Lean Process Deployment Consultant Name Role Phone WachapreagueDeep medina Niko LOPEZ Primary Care Provider [phone] Reason for Visit * Reason Onset Date Comments Medication Refill 11/19/2021 Encounter Details Date Type Department Care Team (Late st Contact Info) Description 11/19/2021 Refill [facility] [address] [place] [address] Audelia Childs, DDS [address] [place] [address] Medication Refill Social History Tobacco [...] Date Recorded PHQ-2 Total Score 0 11/17/2021 [facility] of Occupat ional Health - Occupational Stress [...] documented as of this encounter Care Teams Lean Process Deployment Consultant Relationship Specialty Start Date End Date Deep Pruitt APRN PCP - General 05/22/19 documented as of this encounter
--- OUTSIDE RECORDS SUMMARY | 2024-06-11 12:42 | XMS_ITS | Encounter Summary ---
Author Organization [facility] Address [address] [place] [address] Care Team Providers Care Manager Marketing Name Role Phone Deep Pruitt APRN Primary Care Provider Reason for Visit * Reason Comments Advice Only Other Encounter Details Date Type Department Care Team ([facility] Contact Info) Description 12/02/2021 Telephone [facility] [address] [place] [address] Deep Pruitt APRN [address] [place] [address] Advice Only; Other Social History [...] often do you attend chur ch or jewish services? Never 01/03/2020 Do you belong to any clubs o r organizations such as temple groups, unions, fraternal or athletic groups, or [...] Date Recorded PHQ-2 Total Score 0 11/17/2021 [facility] of Occupat ional Health [...] Mira Rios - 12/02/2021 1:32 PM EDT [facility] - [address] calling in regards to med refill request for Carvedilol 25 mg and Gabapentin medications. Call back [phone] * Telephone Encounter - Leah Madera LPN - 12/02/2021 1:21 PM EDT Patient at * Telephone Encounter - Usha Kline - 12/02/2021 12:18 PM EDT Pt is having a lot of stomach pain on the left side and would like to speak with PCP or nurse. Requesting a call back. [facility] callback number [phone] Iraqi speaking documented in this encounter Plan of [...] as of this encounter Care Teams Manager Marketing Relationship Specialty Start Date End Date Deep Pruitt APRN PCP - General 05/22/19 documented as of this encounter
--- OUTSIDE RECORDS SUMMARY | 2024-06-11 12:42 | XMS_ITS | Encounter Summary ---
Author Organization [facility] Address [address] [place] [address] Care Team Providers Care Jewelry Consultant Name Role Phone Deep Pruitt APRN Primary Care Provider Reason for Visit * Reason Comments Medication Refill Encounter Details Date Type Department Care Team ([facility] st Contact Info) Description 11/17/2021 Refill [facility] [address] [place], [place] [phone] Deep Pruitt APRN [address] [place] [address] Medication Refill Social History Tobacco [...] documented as of this encounter Care Teams Jewelry Consultant Relationship Specialty Start Date End Date Deep Pruitt APRN PCP - General 05/22/19 documented as of this encounter
--- OUTSIDE RECORDS SUMMARY | 2024-06-11 12:42 | XMS_ITS | Encounter Summary ---
Author Organization [facility] Address [address] [place] [address] Care Team Providers Care Summer Child Caregiver Name Role Phone Deep Pruitt APRN Primary Care Provider [phone] Reason for Visit * Reason Comments Medication Problem Encounter Details Date Type Department Care Team ([facility] st Contact Info) Description 12/21/2021 Refill [facility] [address] [place] [address] Deep Pruitt APRN [address] [place] [address] Medication Problem Social History Tobacco [...] Date Recorded PHQ-2 Total Score 4 12/20/2021 [facility] of Occupat ional Health [...] updated information the water pill. Call back [phone] * Telephone Encounter - Sarah Newman - 12/21/2021 1:05 PM EDT Best contact: [phone] Patient Sissy called and stated that she contacted [facility] on and they informed that the [...] documented as of this encounter Care Teams Summer Child Caregiver Relationship Specialty Start Date End Date Deep Pruitt APRN PCP - General 05/22/19 documented as of this encounter
--- OUTSIDE RECORDS SUMMARY | 2024-06-11 12:42 | XMS_ITS | Encounter Summary ---
Author Organization [facility] Address [address] [place] [address] Care Team Providers Care Professor Of Voice Name Role Phone Deep Pruitt APRN Primary Care Provider Reason for Visit * Reason Comments Medication Refill Encounter Details Date Type Department Care Team ([facility] st Contact Info) Description 03/10/2021 Refill [facility] [address] [place] [address] Deep Pruitt APRN [address] [place] [phone] Medication Refill Social History Tobacco Use [...] Date Recorded PHQ-2 Total Score 2 03/10/2021 [facility] of Occupat [...] documented as of this encounter Care Teams Professor Of Voice Relationship Specialty Start Date End Date Deep Pruitt APRN PCP - General 05/22/19 documented as of this encounter
--- OUTSIDE RECORDS SUMMARY | 2024-06-11 12:42 | XMS_ITS | Encounter Summary ---
Author Organization [facility] Address [address] [place] [address] Care Team Providers Care Calender Machine Operator Helper Name Role Phone Deep Pruitt APRN Primary Care Provider [phone] [phone] Encounter Details Date Type Department Care Team ([facility] st Contact Info) Description 10/27/2021 Scanned Document [facility] [address] [place], [place] [phone] Deep Pruitt APRN [address] [place] [address] Social History Tobacco Use Types [...] documented as of this encounter Care Teams Calender Machine Operator Helper Relationship Specialty Start Date End Date Deep Pruitt APRN PCP - General 05/22/19 documented as of this encounter
--- OUTSIDE RECORDS SUMMARY | 2024-06-11 12:42 | XMS_ITS | Encounter Summary ---
Author Organization [facility] Address [address] [place] [address] Care Team Providers Care Pigment Making Supervisor Name Role Phone Romelia Pruittian Niko LOPEZ Primary Care Provider Encounter Details Date Type Department Care Team (Late st Contact Info) Description 03/18/2021 Scanned Document [facility] [address] [place] [address] External, Provider Social History Tobacco Use Types [...] any clubs o r organizations such as nondenominational groups, unions, fraternal or athletic groups, or [...] Date Recorded PHQ-2 Total Score 2 03/10/2021 [facility] of Occupat ional Health - Occupational [...] as of this encounter Care Teams Pigment Making Supervisor Relationship Specialty Start Date End Date Deep Pruitt APRN PCP - General 05/22/19 documented as of this encounter
--- OUTSIDE RECORDS SUMMARY | 2024-06-11 12:42 | XMS_ITS | Encounter Summary ---
Author Organization [facility] Address [address] [place] [address] Care Team Providers Care Instructional Systems Design Consultant Name Role Phone Romelia Pruittian Niko LOPEZ Primary Care Provider Reason for Visit * Reason Onset Date Comments Medication Refill 11/19/2021 Encounter Details Date Type Department Care Team (Late st Contact Info) Description 11/19/2021 Refill [facility] [address] [place] [phone] Carlos Eduardo Joyner MD [address] [place] [phone] Medication Refill Social History Tobacco Use [...] Date Recorded PHQ-2 Total Score 0 11/17/2021 [facility] Occupational Stress Questionnaire Answer Date [...] documented as of this encounter Care Teams Instructional Systems Design Consultant Relationship Specialty Start Date End Date Deep Pruitt APRN PCP - General 05/22/19 documented as of this encounter
--- OUTSIDE RECORDS SUMMARY | 2024-06-11 12:42 | XMS_ITS | Encounter Summary ---
Author Organization [facility] [employer] [facility] Address [address] [place] [phone] Care Team Providers Care Civil Cadd Technician Name Role Phone Deep Pruitt APRN Primary Care Provider Reason for Visit * Reason Onset Date Comments Medication Refill 11/19/2021 Encounter Details Date Type Department Care Team (Late st Contact Info) Description 11/19/2021 Refill [facility] [address] [facility] [address] [facility] 2nd [place] [address] Yue Dominguez APRN [address] [place] [phone] Medication Refill Social History Tobacco Use Types [...] often do you attend chur ch or orthodox services? Never 01/03/2020 Do you belong [...] Date Recorded PHQ-2 Total Score 0 11/17/2021 [facility] of Occupat ional Health - Occupational [...] documented as of this encounter Care Teams Civil Cadd Technician Relationship Specialty Start Date End Date Deep Pruitt APRN PCP - General 05/22/19 documented as of this encounter
--- OUTSIDE RECORDS SUMMARY | 2024-06-11 12:44 | XMS_ITS | Encounter Summary ---
Author Organization [facility] Address [address] [place] [address] Care Team Providers Care Child And Adolescent Psychologist Name Role Phone Deep Pruitt APRN Primary Care Provider Reason for Visit * Reason Comments Other Advice Only Encounter Details Date Type Department Care Team ([facility] Contact Info) Description 10/20/2021 Telephone [facility] [address] [place] [address] Deep Pruitt APRN [address] [place] [address] Other; Advice Only Social History [...] Date Recorded PHQ-2 Total Score 0 10/12/2021 [facility] of Occupat ional Health - [...] suspected to have Coronavirus/COVID-19? No / Unsure 10/20/2021 10:56 AM EDT documented as of this encounter Miscellaneous Notes * Telephone Encounter - Perla Rice RN - 10/20/2021 4:39 PM EDT Call was placed to patient who states he is experiencing palpitations on exertion and also increased pain in bilateral legs. Per PCP's advise, patient was advised to go be evaluated at ED for a possible cardiac event. Patient verbalized understanding and is aware of the risks of waiting until tomorrow * Telephone Encounter - Brunilda Gongora - 10/20/2021 12:40 PM EDT Patient called to inform pcp of his heart beat, states its not normal palpitation and also states that his legs have not stops hurting. Contact number [phone] documented in this encounter Plan of Treatment Not on file documented as of this encounter Visit Diagnoses Not on filedocumented in this encounter Additional Health Concerns Assessment Noted Time PHQ-9 Depression Total Score: 0 10/13/19 22 2:23 PM EDT documented as of this encounter Care Teams Child And Adolescent Psychologist Relationship Specialty Start Date End Date Deep Pruitt APRN PCP - General 05/22/19 documented as of this encounter
--- OUTSIDE RECORDS SUMMARY | 2024-06-11 12:44 | XMS_ITS | Encounter Summary ---
Author Organization [facility] Address [address] [place] [address] Care Team Providers Care Marine Radio Installer And Servicer Name Role Phone Deep Pruitt JOHN Primary Care Provider Encounter Details Date Type Department Care Team (Late st Contact Info) Description 01/17/2019 Scanned Document [facility] [address] [place], [place] [phone] External, Provider Social History Tobacco Use Types [...] documented as of this encounter Care Teams Marine Radio Installer And Servicer Relationship Specialty Start Date End Date Deep Pruitt APRN PCP - General 05/22/19 documented as of this encounter
--- OUTSIDE RECORDS SUMMARY | 2024-06-11 12:44 | XMS_ITS | Encounter Summary ---
Author Organization [facility] Address [address] [place] [address] Care Team Providers Care Human Resources Administrator Name Role Phone Deep Pruitt APRN Primary Care Provider Reason for Visit * Reason Comments Medication Refill Encounter Details Date Type Department Care Team ([facility] st Contact Info) Description 02/01/2021 Refill [facility] [address] [place], [place] [phone] Deep Pruitt APRN [address] [place] [address] Medication Refill Social History Tobacco [...] Date Recorded PHQ-2 Total Score 6 01/21/2021 [facility] [...] documented as of this encounter Care Teams Human Resources Administrator Relationship Specialty Start Date End Date Deep Pruitt APRN PCP - General 05/22/19 documented as of this encounter
--- OUTSIDE RECORDS SUMMARY | 2024-06-11 12:44 | XMS_ITS | Encounter Summary ---
Author Organization [facility] Address [address] [place] [address] Care Team Providers Care Early Childhood Director Name Role Phone Deep Pruitt JOHN Primary Care Provider Encounter Details Date Type Department Care Team (Late st Contact Info) Description 01/02/2017 Scanned Document [facility] [address] [place], [place] [phone] Francisco Veloz PA [address] [place] [address] Social History Tobacco Use Types [...] documented as of this encounter Care Teams Early Childhood Director Relationship Specialty Start Date End Date Deep Pruitt APRN PCP - General 05/22/19 documented as of this encounter
--- OUTSIDE RECORDS SUMMARY | 2024-06-11 12:44 | XMS_ITS | Encounter Summary ---
Author Organization [facility] Address [address] [place] [address] Care Team Providers Care Customer Service Technician Name Role Phone Deep Pruitt JOHN Primary Care Provider Encounter Details Date Type Department Care Team (Late st Contact Info) Description 11/22/2017 Scanned Document [facility] [address] [place], [place] [phone] Francisco Veloz PA [address] [place] [address] Social History Tobacco Use Types [...] as of this encounter Care Teams Customer Service Technician Relationship Specialty Start Date End Date Deep Pruitt APRN PCP - General 05/22/19 documented as of this encounter
--- OUTSIDE RECORDS SUMMARY | 2024-06-11 12:44 | XMS_ITS | Encounter Summary ---
Author Organization [employer] Address [address] [facility] 7 [place] [address] Care Team Providers Care Methods Analyst Name Role Phone Katrin Santoyo MD Primary Care Pro vider Edison Vieira MD Unavailable [phone] Joe Devi MD Unavailable [phone] Encounter Details Date Type Department Care Team (Late st Contact Info) Description 06/21/2023 Abstract [facility] [address] [place], [place] [phone] Katrin Santoyo MD [address] [place] [address] Social History Tobacco Use Types Packs/Day Years [...] Description 07/01/2024 11:00 AM EST Office Visit [facility] [address] [place] [address] documented as of this encounter Goals Goal [...] documented as of this encounter Care Teams Methods Analyst Relationship Specialty Start Date End Date Katrin Santoyo MD [address] [place] [address] PCP - General Internal Medicine 12/13/22 Edison Vieira MD [address] [place] [address] Pulmonary Disease 04/07/24 Joe Devi MD [address] [facility] 3rd [place] [address] Gastroenterology 04/07/24 Carito Roche DNP [address] [facility], [address] [place] [address] Nephrology 04/07/24 [employer] 04/11/24 documented as of this encounter
--- OUTSIDE RECORDS SUMMARY | 2024-06-11 12:44 | XMS_ITS | Encounter Summary ---
Author Organization [facility] Address [address] [place] [address] Care Team Providers Care Loan Originator Name Role Phone Deep Pruitt JOHN Primary Care Provider Encounter Details Date Type Department Care Team (Late st Contact Info) Description 02/13/2018 Scanned Document [facility] [address] [place] [address] Francisco Veloz PA [address] [place] [phone] Social History Tobacco Use Types Packs/Day [...] documented as of this encounter Care Teams Loan Originator Relationship Specialty Start Date End Date Deep Pruitt APRN PCP - General 05/22/19 documented as of this encounter
--- OUTSIDE RECORDS SUMMARY | 2024-06-11 12:44 | XMS_ITS | Encounter Summary ---
Author Organization [facility] Address [address] [place] [address] Care Team Providers Care Domestic Violence Counselor Name Role Phone Deep Pruitt APRN Primary Care Provider Reason for Visit * Reason Comments Medication Refill Encounter Details Date Type Department Care Team ([facility] st Contact Info) Description 01/29/2021 Refill [facility] [address] [place], [place] [phone] Deep Pruitt APRN [address] [place] [address] Medication Refill Social History Tobacco [...] Date Recorded PHQ-2 Total Score 6 01/21/2021 [facility] [...] documented as of this encounter Care Teams Domestic Violence Counselor Relationship Specialty Start Date End Date Deep Pruitt APRN PCP - General 05/22/19 documented as of this encounter
--- OUTSIDE RECORDS SUMMARY | 2024-06-11 12:44 | XMS_ITS | Encounter Summary ---
Author Organization [employer] Address [address] [facility] 7t [place] [address] Care Team Providers Care Band Salvager Name Role Phone Katrin Santoyo MD Primary Care Pro vider Edison Vieira MD Unavailable [phone] Joe Devi MD Unavailable [phone] Reason for Visit * Reason Comments Med Refill Encounter Details Date Type Department Care Team (Late st Contact Info) Description 01/02/2023 Refill [facility] [address] [place] [address] Elise Stanford FNP [address] [place] [address] Dept [place] [address] Hemorrhoids, unspecified hemorrhoid type Social History Tobacco [...] Description 07/01/2024 11:00 AM EST Office Visit [facility] [address] [place] [address] documented as of this encounter Goals Goal [...] documented as of this encounter Care Teams Band Salvager Relationship Specialty Start Date End Date Katrin Santoyo MD [address] [place] [address] PCP - General Internal Medicine 12/13/22 Edison Vieira MD [address] [place] [address] Pulmonary Disease 04/07/24 Joe Devi MD [address] [facility] 3rd [place] [address] Gastroenterology 04/07/24 Carito Roche DNP [address] [facility], [address] [place] [address] Nephrology 04/07/24 [employer] 04/11/24 documented as of this encounter
--- OUTSIDE RECORDS SUMMARY | 2024-06-11 12:44 | XMS_ITS | Encounter Summary ---
Author Organization [facility] Address [address] [place] [address] Care Team Providers Care Mold Filling Operator Name Role Phone Deep Pruitt JOHN Primary Care Provider Encounter Details Date Type Department Care Team (Late st Contact Info) Description 09/26/2016 Scanned Document [facility] [address] [place], [place] [phone] External, Provider Social History Tobacco Use Types [...] documented as of this encounter Care Teams Mold Filling Operator Relationship Specialty Start Date End Date Deep Pruitt APRN PCP - General 05/22/19 documented as of this encounter
--- OUTSIDE RECORDS SUMMARY | 2024-06-11 12:44 | XMS_ITS | Encounter Summary ---
Author Organization [facility] Address [address] [facility] 7t [place] [address] Care Team Providers Care Vendor Quality Supervisor Name Role Phone Elise Stanford Primary Care Provider [phone] Katrin Santoyo MD Primary Care Pro vider Edison Vieira MD Unavailable [phone] Joe Devi MD Unavailable [phone] Reason for Visit * Reason Onset Date Comments Referral 11/24/2022 Podiatry Encounter Details Date Type Department Care Team (Late st Contact Info) Description 11/24/2022 Telephone [facility] [address] [place] [address] Elise Stanford FNP [address] [place] [address] Dept [place] [address] Referral (Podiatry/) Social History Tobacco Use Types [...] Anne Ocasio - 11/29/2022 9:46 AM EDT [employer] re-faxed referral to Dr. Smith's office. English Adjunct Faculty called Dr. Smith's office and confirmed that referral was received. English Adjunct Faculty attempted to call patient twice to infirm that he may call to schedule his appt but did not answer and voicemail could not be left due to pt not having voicemail setup. Dr. Smith [address] [place] [address] FAX [phone] * Telephone Encounter - Elizabeth Melo - 11/24/2022 9:51 AM EDT Tc from patient requesting status on podiatry referral. English Adjunct Faculty provided address and phone number and patient [...] 07/01/2024 11:00 AM EST Office Visit [facility] [address] [place] [address] documented as of this encounter Visit Diagnoses Not on filedocumented in this encounter Additional Health Concerns Assessment Noted Time PHQ-9 Depression Total Score: 24 023 2:05 PM EDT documented as of this encounter Care Teams Vendor Quality Supervisor Relationship Specialty Start Date End Date Elise Stanford FNP PCP - General Family Medicine 11/24/22 12/12/22 Katrin Santoyo MD [address] [place] [address] PCP - General Internal Medicine 12/13/22 Edison Vieira MD [address] [place] [address] Pulmonary Disease 04/07/24 Joe Devi MD [address] 3rd [place] [address] Gastroenterology 04/07/24 Carito Roche DNP [address], [address] [place] [address] Nephrology 04/07/24 [employer] 04/11/24 documented as of this encounter
--- OUTSIDE RECORDS SUMMARY | 2024-06-11 12:44 | XMS_ITS | Clinical Summary ---
Author Organization [employer] Address [address] [facility] [address] [place] [address] Care Team Providers Care Attendant Honor Bar Name Role Phone Katrin Santoyo MD Primary Care Pro vider Edison Vieira MD Unavailable [phone] Joe Devi MD Unavailable [phone] Allergies Active Allergy Reactions Criticality Noted [...] Continuous Blood Gluc Sensor (Dexcom G7 Sensor) [facility] 023 Active DULoxetine (Cymbalta) [address] [...] THE EVENING Active Blood Glucose Monitoring Suppl (InterseStyle Sequatchie Lite) w/Device kitIndications: Type 2 diabetes mellitus with diabetic nephropathy, with long-term current use of insulin ([facility]) Use to test blood sugar bid dx [...] feet Active ergocalciferol (Vitamin D-2) 1.25 MG (25961 UT) capsule Take 1 capsule by mouth. Every Monday and Active lidocaine (Lidoderm) 5 % patch Apply 1 patch topically Once per day. 12 hours on and 12 hours off Active SSD 1 % cream Apply 1 Application. topically Once per day. Active FreeStyle lancetsIndicati ons:Type 2 diabetes mellitus with diabetic nephropathy, with long-term current use of insulin ([facility]) 1 each by Other route before breakfast, before lunch, before evening meal, and at bedtime. Use bid, dx type 2 diabetes 100 each Active Alcohol Swabs (B-D SINGLE USE SWABS REGULAR) pads Apply 1 Units topically 4 times daily. 100 each Active B-D UF III MINI PEN NEEDLES 31G X 5 MM [facility] Use as instructed 100 each Active FREESTYLE [...] PRN Indication: chronic radicular lumbar pain Last EMERGENCY DEPARTMENT COORDINATOR Agreement: 04/02/24 Chronic respiratory failure with hypoxia 024 On home oxygen therapy 02/02/2024 Assessment & Plan (04/07/2024 2:01 PM EST): - Continues on 2L oxygen - Followed by [facility] Pulm - Dr. [...] lesions. Secondary dental caries 10/23/2023 Fractured dental anabaptist without loss of mat erial 10/23/2023 Alkaline phosphatase elevation 07/27/2023 Diabetes mellitus, labile 06/29/2023 Adrenal adenoma, right 05/18/2023 Type 2 diabetes mellitus wit h stage 3 chronic kidney disease, with long-term current use of insulin 01/23/2023 Assessment & Plan (06/22/2023 12:26 AM EST): -A1C 11.2 -Check blood sugar 1-2 hours after every meal. -Continue use of glucose gel PRN. -Follow up with [facility] 2023. Chronic radicular lumbar pain 01/23/2023 [...] of multiple topical analgesics after discussion with [facility] Pharmacist - meds sent to pharmacy below. [...] 2022, f/u appt 01/2023 Dental: Refer pt [facility] on 12/13/22 Moderate persistent asthma 11/07/2022 Overview [...] Will focus on improving diabetic control Discuss nutrition educator referral at next visit F/u 1 [...] (04/07/2024 2:05 PM EST): - Following with [facility] - [...] disordered breathing. RECOMMENDATIONS / PLAN : -Current [employer] recommendations for treatment of [...] S on 17/10 cm. - Following with [facility] Pulmonology - Dr. [...] associated wi th type 2 diabetes mellitus ([facility]) 12/10/2018 Overview (11/07/2022): - LDL 90 01/25/2021 [...] told him that it is not a penitentiary med. He will fu w PCP next [...] told him that it is not a penitentiary med. He will fu w PCP next week. Use heat to affected area Diabetes mellitus with diabetic nephropathy 12/09/2022 12/13/2022 History of colonoscopy 12/09/202201/23 Overview (12/09/2022): information and pathology of colonospcy in [facility] 09-09-2020 note Hyperlipidemia due to type 2 [...] Encounters Date Type Department Care Team Description 06/10/2024 Telephone [facility] MEDICINE [address] [place], [place] [phone] Shirin Albarran MD No Show 06/06/2024 Telephone [facility] MEDICINE [address] [place], [place] [phone] Katrin Santoyo MD FYI 06/06/2024 Telephone [facility] MEDICINE [address] [place] [address] Katrin Santoyo MD Nurse Triage 06/05/2024 Telephone [facility] CHC MED & PEDS [address] [place] [address] Gabriela Rea, CASIE Error (VOID this visit) 05/30/2024 Telephone [facility] MEDICINE [address] [place] [address] Katrin Santoyo MD Nurse Triage 05/22/2024 Telephone [facility] MEDICINE [address] [place] [address] Katrin Santoyo MD FYI 05/17/2024 Refill [facility] MEDICINE [address] [place] [address] Moriah Herbert FNP Chronic radicular lumbar pain 05/17/2024 Refill [facility] MEDICINE [address] [place] [address] Shanna Henao MD Chronic radicular lumbar pain 05/12/2024 Refill [facility] WALK-IN CENTER [address] [place] [address] Katrin Santoyo MD 04/30/2024 Telephone [facility] MEDICINE [address] [place] [address] Katrin Santoyo MD Nurse Triage 04/26/2024 Refill [facility] MEDICINE [address] [place] [address] Katrin Santoyo MD 04/18/2024 Refill [facility] CHC MED & PEDS [address] [place] [address] Katrin Santoyo MD 04/16/2024 Telephone [facility] MEDICINE [address] [place] [phone] Katrin Santoyo MD Request For Order(s) 04/15/2024 Telephone [facility] MEDICINE [address] [place] [address] Tamiko Bray MA Appointment 04/12/2024 Telephone [facility] MEDICINE [address] [place] [phone] Tamiko Bray MA Durable Medical Equipment 04/10/[address] [address] Katrin Santoyo MD Referral; Durable Medical Equipment 04/10/2024 Orders Only GENERIC EXTERNAL DATA DEPARTMENT Provider, Generic External Data 04/09/[address] [address] Katrin Santoyo MD 04/08/2024 Orders Only [facility] MED & PEDS [address] [place] [address] Phalen, Moriah, HYDRAULIC MINER BLASTING Multifocal pneumonia (Primary Dx) 04/07/2024 Refill [facility] MED & PEDS [address] [place] [address] Phalen, Moriah, HYDRAULIC MINER BLASTING Lung infection 04/03/2024 10:15 AM EST Office Visit [address] [address] Phalen, Moriah, HYDRAULIC MINER BLASTING Multifocal pneumonia (Primary Dx); Acute kidney injury superimposed on CKD (CMS/HCC) ([facility]); Obstructive sleep apnea; On home oxygen therapy; Chronic kidney disease (CKD) stage G3a/A3, moderately decreased glomerular filtration rate (GFR) between 45-59 mL/min/1.73 square meter and albuminuria creatinine ratio greater than 300 mg/g ([facility]); Primary hypertension 04/03/2024 Orders Only GENERIC EXTERNAL DATA DEPARTMENT Provider, Generic External Data 04/03/2024 Travel 04/03/[address] [address] Katrin Santoyo MD FYI 04/03/[address] [address] Sean Danielson MA Chart Prep 04/02/2024 11:00 AM EST Office Visit [address] [address] Phalen, Moriah, HYDRAULIC MINER BLASTING Chronic radicular lumbar pain (Primary Dx); Long-term current use of opiate analgesic 04/02/2024 Travel 04/02/[address] [address] Katrin Santoyo MD callback requested 03/27/2024 Orders Only GENERIC EXTERNAL DATA DEPARTMENT Provider, Generic External Data 03/25/2024 Telephone [facility] MEDICINE [address] [place] [phone] Katrin Santoyo MD callback requested 03/20/2024 Orders Only GENERIC EXTERNAL DATA DEPARTMENT Provider, Generic External Data 03/19/2024 Orders Only [facility] MEDICINE [address] [place] [phone] Katrin Santoyo MD Type 2 diabetes mellitus with stage 3a chronic kidney disease, with long-term current use of insulin ([facility]) (Primary Dx) 03/14/2024 9:15 AM EST Office Visit [facility] MEDICINE [address] [place] [phone] Angie Ackerman MD Chronic radicular lumbar pain (Primary Dx); Moderate persistent asthma without complication 03/14/2024 Travel 03/13/2024 5:20 PM EST Office Visit [facility] WALK-IN CENTER [address] [place] [phone] Katrina Ward NP Nasal congestion (Primary Dx); [...] 07/01/2024 11:00 AM EST Office Visit [facility] MEDICINE [address] [place] [address] [phone] Health Maintenance Due Date Last Done Comments [...] 05/08, 12/06/2022 Depression Screening 10/30/2024 10/31/2023, 10/31/19 24 Diabetes: Foot Exam 02/11/2025 02/12/2024, 11/13/2023, 11/13/2023, Additional history exists Tobacco Screening 04/03/2025 04/03/2024 DTaP/Tdap/Td Vaccines (3 - Td or Tdap) 03/24/2032 03/24/2022, 10/05/2016 RSV Patients and Patients Aged 60 years or older (1 - 1-dose 75+ series) 2045 Hepatitis B Vaccines Completed 04/05/2017, 10/05/2016, 08/17/2016 Pneumococcal Vaccine: 50+ Years Completed 03/24/2022, 03/24/2022, 01/21/2021 HIV Screening Completed [...] disease, with long-term current use of insulin ([facility]) HEPATITIS PANEL, GENERAL Routine 12/06/2022 10:21 AM [...] included. Sodium 140 135 - 145 mmol/L [facility] Potassium 4.9 3.3 - 5.1 mmol/L [facility] Chloride 107 96 - 108 mmol/L [facility] Carbon Dioxide 28 22 - 29 mmol/L [facility] Anion Gap 10(L) 12 - 20 [facility] Urea Nitrogen (BUN) 35(H) 9 - 16 mg/dL [facility] Creatinine, Serum 3.01(H) 0.5 - 1.4 mg/dL [facility] Estimated Glomerular Filt Rate 22 [facility] Comment:Chronic Kidney Disea se: Estimated GFR < 60 mL/min/1.88m1Vcfpze Kidney Disease: Estimated GFR < 15 mL/min/1.73m2 Glucose 288(H) 60 - 115 mg/dL [facility] Calcium 9.2 8.4 - 10.2 mg/dL [facility] 04/10/2024 11:5 1 AM EST 04/10/2024 11:58 AM EST us Generic External Data Provider LAB BLOOD ORDERAB LES Final Result Performing Organization Address City/[facility]/ZIP Co de Phone Number [facility] [address] [place] [phone] * Creatinine, Random Urine (04/03/2024 11:51 AM EST) Creatinine, Urine 80.68 mg/dL [facility] 04/03/2024 11:5 1 AM EST 04/03/2024 1:15 PM EST us Generic External Data Provider LAB URINE ORDERAB LES Final Result Performing Organization Address City/[facility]/ZIP Co de Phone Number [facility] [address] [place] [address] [phone] * XR Chest 2 Views (04/03/2024 11:24 AM EST) Only the most recent of2 resultswithin the time period is included. Anatomical Region Laterality Modality Chest Radiographic Cierra ging 04/03/2024 11:2 4 AM EST Narrative 04/04/2024 11:05 AM EST ?[facility] ?[address] ?[place] [address] ?XRay Report ? Signed ? Patient: Darrel Hagan ?MR#: [id number] ?? [id number] ? : 1970 ?Acct:[id number] ? Age/Sex: 53 / M ?ADM Date: 04/03/24 ? Loc: HO.HHCX ? Attending Dr: Moriah LEACH ? Ordering Physician: Moriah Herbert ?? Date of Service: 04/03/24 ?? Procedure(s): XR chest 2V ?? Accession Number(s): [id number] ? cc: Moriah Herbert ? EXAMINATION: ?? [...] DD/ 1124 ? TD/TT: 04/03/24 1136 ? Strategic Planning Manager: IAN ? Procedure Note Pato, Image - 04/04/2024 [facility] [address] [place] [address] XRay Report Signed Patient: Darrel HaganMR#: [id number] : 1970Acct:[id number] Age/Sex: 53 / MADM Date: 04/03/24 Loc: HO.HHCX Attending Dr: Moriah LEACH Ordering Physician: Moriah Herbert Date of Service: 04/03/24 Procedure(s): XR chest 2V Accession Number(s): [id number] cc: Moriah Herbert EXAMINATION: XR CHEST 2 [...] Blake Magana MD 04/04/2024 11:02 AM EST Dictated By: Blake Magana MD Signed By: <Electronically signed by Blake Magana MD in OV> 04/04/24 1102 DD/ 1124 TD/TT: 04/03/24 1136 Strategic Planning Manager: IAN Moriah Herbert HYDRAULIC MINER BLASTING IMG XR PROCEDURES Final Result * POCT [id number] Urine Drug Screen (04/02/2024 1:31 PM EST) Urine Urine specimen obtained by clean catch procedure / Unknown 04/02/2024 1:31 PM EST Narrative Gabriela Rea RN - 04/02/2024 1:31 PM EST .UT[employer] cup Lot#[id number] Exp. 12/25/25 Internal Pass Control Katrin López MD POINT OF CARE IRAM T ENTER/EDIT ORDERABLES Final Result * (ABNORMAL) Vitamin D 1,25 dihydroxy (03/27/2024 4:01 PM EST) Vit D (1,25-Dihydroxy) Total 17(A) 18 - 72 pg/mL [facility] VITAMIN D (1,25 OH) D3 17 pg/mL [facility] Vitamin D (1,25 OH) D2 <8 pg/mL [facility] Comment:Vitamin D3, 1,25(OH) 2 indicates both endogenousproduction and supplementation. Vitamin D2, 1,25(OH)2is an indicator of exogenous sources, such as diet orsupplementation. Interpretation and therapy are basedon measurement of Vitamin D,1,25(OH)2, Total.This test was developed and its analyticalperformance characteristics have been determinedby [employer] [place], [place].It has not been cleared or approved by the FDA. Thisassay has been validated pursuant to the CLIAregulations and is used for clinical purposes.THIS TEST WAS PERFORMED AT:[facility] [id number] [place] [id number] HAILE MD,PHD 03/27/2024 4:01 PM EST 03/27/2024 4:01 PM EST us Generic External Data Provider LAB BLOOD ORDERAB LES Final Result [facility] [address] [place] [phone] * Prothrombin Time-INR (03/27/2024 4:01 PM EST) Only the most recent of2 resultswithin the time period is included. Prothrombin Time 11.0 10.9 - 12.4 SEC [facility] INTERNATIONAL NORM RATIO 0.9 0.9 - 1.1 [facility] Comment:INTERNATIONAL NORMAL IZED RATIO (INR) [...] ORDERAB LES Final Result Performing Organization Address [facility] de Phone Number [facility] [address] [place] [phone] * (ABNORMAL) Immunofixation, Serum (03/27/2024 4:01 PM EST) IMMUNOGLOBULIN G 605 600 - 1640 mg/dL [facility] IMMUNOGLOBULIN A 279 47 - 310 mg/dL [facility] Immunoglobulin M 33(A) 50 - 300 mg/dL [facility] Comment:THIS TEST WAS PERFOR MED AT:[facility] [address] [id number] ALEXANDER MD Immunofixation Result SEE NOTE [facility] Comment:Faint IgG kappa mono clonal band present. 03/27/2024 4:01 PM EST 03/27/2024 4:01 PM EST Generic External Data Provider LAB BLOOD ORDERAB LES Final Result Performing Organization Address [facility] de Phone Number [facility] [address] [place] [phone] * (ABNORMAL) Complement Component C3c (03/27/2024 4:01 PM EST) Complement C3 204(A) 82 - 185 mg/dL [facility] Comment:THIS TEST WAS PERFOR MED AT:[facility] [address] [id number] ALEXANDER MD 03/27/2024 4:01 PM EST 03/27/2024 4:01 PM EST us Generic External Data Provider LAB BLOOD ORDERAB LES Final Result Performing Organization Address [facility] de Phone Number [facility] [address] [place] [phone] * (ABNORMAL) Complement Component C4c (03/27/2024 4:01 PM EST) Complement C4 56(A) 15 - 53 mg/dL [facility] Comment:THIS TEST WAS PERFOR MED AT:[employer] [place] [id number] ALEXANDER MD 03/27/2024 4:01 PM EST 03/27/2024 4:01 PM EST Generic External Data Provider LAB BLOOD ORDERAB LES Final Result Performing Organization Address [facility] Phone Number [facility] [address] [place] [phone] * Phosphate (As Phosphorus) (03/27/2024 4:01 PM EST) Phosphorus 4.0 2.7 - 4.5 mg/dL [facility] 03/27/2024 4:01 PM EST 03/27/2024 4:01 PM EST Generic External Data Provider LAB BLOOD ORDERAB LES Final Result Performing Organization Address [facility] de Phone Number [facility] [address] [place] [phone] * (ABNORMAL) PTH, Intact Without Calcium (03/27/2024 4:01 PM EST) Parathyroid Hormone, Intact 498.5(H) 8.7 - 77.1 pg/mL [facility] 03/27/2024 4:01 PM EST 03/27/2024 4:01 PM EST us Generic External Data Provider LAB BLOOD ORDERAB LES Final Result [facility] [address], [place] [phone] * (ABNORMAL) Comprehensive Metabolic Panel (03/27/2024 4:01 PM EST) Sodium 136 135 - 145 mmol/L [facility] Potassium 4.8 3.3 - 5.1 mmol/L [facility] Chloride 102 96 - 108 mmol/L [facility] Carbon Dioxide 24 22 - 29 mmol/L [facility] Anion Gap 15 12 - 20 [facility] Urea Nitrogen (BUN) 59(H) 9 - 16 mg/dL [facility] Creatinine, Serum 3.95(H) 0.5 - 1.4 mg/dL [facility] Estimated Glomerular Filt Rate 16 [facility] Comment:Chronic Kidney Disea se: Estimated GFR < 60 mL/min/1.27x1Otwgdh Kidney Disease: Estimated GFR < 15 mL/min/1.73m2 Glucose 502(HH) 60 - 115 mg/dL [facility] Comment:Critical value for t est(s): GLU Results called to and readback by: JUANITO Person calling: BRENDON Date: 03/27/24Time: 1745 Calcium 9.2 8.4 - 10.2 mg/dL [facility] Bilirubin, Total 0.1 0.0 - 1.0 mg/dL [facility] Aspartate Amino Transferase 24 5 - 37 U/L [facility] Alanine Aminotransferase 24 0 - 40 U/L [facility] Total Protein 6.2(L) 6.5 - 8.0 g/dL [facility] Albumin Level 2.6(L) 3.5 - 5.0 g/dL [facility] Alkaline Phosphatase 140(H) 39 - 117 U/L [facility] 03/27/2024 4:01 PM EST 03/27/2024 4:01 PM EST us Generic External Data Provider LAB BLOOD ORDERAB LES Final Result Performing Organization Address [facility] de Phone Number [facility] [address] [place] [phone] * Immunofixation (CHRISTIANE), Urine (03/27/2024 3:57 PM EST) CHRISTIANE Interpretation [facility] Comment:No monoclonal protei ns detected.The supplier of the testing reagents for this assayhas changed. Detection of small monoclonal proteins mayvary by test system.THIS TEST WAS PERFORMED AT:[employer] [place] [id number] ALEXANDER MD 03/27/2024 3:57 PM EST 03/27/2024 4:37 PM EST Generic External Data Provider LAB URINE ORDERAB LES Final Result Performing Organization Address [facility] Phone Number [facility] [address] [place] [phone] * (ABNORMAL) Albumin, Random Urine W/Creatinine (03/27/2024 3:57 PM EST) Creatinine, Urine 65.94 mg/dL [facility] Microalbumin Urine >2,000.0 mg/L [facility] Microalbum Creatinine Ratio Ur 3,033.0(H ) <30 ug/mg cr [facility] Comment:Albumin/Creatinine R atio Reference Ranges: Normal: < 30 ug/mg creatinine Microalbuminuria: 30 - 300 ug/mg creatinineClinical Albuminuria: > 300 ug/mg creatinine 03/27/2024 3:57 PM EST 03/27/2024 4:37 PM EST Generic External Data Provider LAB URINE ORDERAB LES Final Result Performing Organization Address [facility] Co de Phone Number [facility] [address] [place] [phone] * (ABNORMAL) CBC auto differential (03/27/2024 3:40 PM EST) White Blood Count 12.3(H) 4.8 - 10.8 X10*3/uL [facility] Red Blood Count 4.57(L) 4.60 - 5.80 X10*6/uL [facility] Hemoglobin 12.7(L) 14.0 - 18.0 g/dl [facility] Hematocrit 40.5(L) 42.0 - 52.0 % [facility] Mean Corpuscular Volume 88.6 80.0 - 98.0 fL [facility] Mean Corpuscular Hemoglobin 27.8 27.0 - 33.0 pg [facility] Mean Corpuscular HGB Conc 31.4 31.0 - 36.0 g/dl [facility] Red Cell Distribution Width 14.4 11.0 - 16.0 % [facility] Platelet Count 402(H) 160 - 400 X10*3/uL [facility] Mean Platelet Volume 12.1 9.4 - 12.4 fL [facility] Neutrophils Percent Auto 68.8 45 - 73 % [facility] Imm Gran Pct Auto 1.1(H) 0.0 - 0.4 % [facility] Lymphocytes Percent Auto 18.6(L) 20 - 40 % [facility] Monocytes Percent Auto 8.6 2 - 11 % [facility] Eosinophils Percent Auto 2.4 0 - 4 % [facility] Basophils Percent Auto 0.5 0 - 2 % [facility] NRBC Pct Auto 0.0 0.0 - 0.2 /100WBC [facility] Neutrophils Absolute Auto 8.4(H) 2.0 - 8.3 x10*3/uL [facility] Imm Gran Abs Auto 0.14(H) 0.00 - 0.03 X10*3/uL [facility] Lymphocytes Absolute Auto 2.3 1.2 - 4.9 X10*3/uL [facility] Monocytes Absolute Auto 1.1 0.1 - 1.2 X10*3/uL [facility] Eosinophils Absolute Auto 0.3 0.0 - 0.4 X10*3/uL [facility] Basophils Absolute Auto 0.1 0.0 - 0.2 X10*3/uL [facility] NRBC Abs Auto 0.000 0.0 - 0.012 X10*3/uL [facility] 03/27/2024 3:40 PM EST 03/27/2024 4:52 PM EST us Generic External Data Provider LAB BLOOD ORDERAB LES Final Result Performing Organization Address [facility] Co de Phone Number [facility] [address] [place] [phone] * (ABNORMAL) Hemoglobin A1c (03/27/2024 3:40 PM EST) Hemoglobin A1c 12.5(H) <6.0 % [facility] Comment:Hemoglobin A1C Refer ence Range Adults: 4.8 - 6.0 % Non diabetic: < 6.0 % Goal: < 7.0 %Additional Action Suggested: > 8.0 %Note: Hemoglobin A1c results are invalid for patients with abnormal amounts of HbF. Blood transfusions may impact the HbA1c concentration in the patient sample. Estimated Average Glucose 312 mg/dL [facility] Comment:eAG = Estimated ave rage glucose which is %A1C expressed asaverage glucose, using the formula of the S5E-PztlkmrFmkatyr Glucose study (ADAG), Diabetes Care, Vol.31,#8,Dec. 2007 03/27/2024 3:40 PM EST 03/27/2024 6:33 PM EST us Generic External Data Provider LAB BLOOD ORDERAB LES Final Result Performing Organization Address [facility]/ZIP Co de Phone Number [facility] [address] [place] [phone] * US RENAL BI (03/25/2024 1:17 PM EST) Anatomical Region Laterality Modality Abdomen Ultrasound 03/25/2024 1:17 PM EST Narrative 03/25/2024 5:19 PM EST ? [facility] ?[address] ?[place] [address] ? Ultrasound Report ? Signed ? Patient: Bhardwaj Sebastian,Darrel ?MR#: [id number] ?? [id number] ? : 1970 ?Acct:[id number] ? Age/Sex: 53 / M ?ADM Date: 03/20/24 ? Loc: HO.IMC ?470-1 ? Attending Dr: Renetta Chawla MD ? Ordering Physician: Carito Roche DNP, FNP-BC ?? Date of Service: 03/25/24 ?? Procedure(s): US renal BI ?? Accession Number(s): [id number] ? cc: Carito Roche DNP, RENATO; Katrin Santoyo MD ? EXAMINATION: ?? US [...] DD/ 1317 ? TD/TT: 03/25/24 1331 ? Strategic Planning Manager: IAN ? Procedure Note Pato, Image - 03/25/[address] [address] Ultrasound Report Signed Patient: Darrel HaganMR#: [id number] : 1970Acct:[id number] Age/Sex: 53 / MADM Date: 03/20/24 Loc: [facility] 470-[address]: Renetta Chawla MD Ordering Physician: Carito Roche DNP, FNP-BC Date of Service: 03/25/24 Procedure(s): US renal BI Accession Number(s): [id number] cc: Carito Roche DNP, FNP-BC; Katrin Santoyo MD EXAMINATION: US RETROPERITONEAL LIMITED [...] 03/25/24 1716 DD/ 1317 TD/TT: 03/25/24 1331 Strategic Planning Manager: IAN Authored Provider Result Type Result Stat us [facility] External Provider IMG US PROCEDURES Final Result * (ABNORMAL) Glucose, Whole Blood (03/20/2024 3:43 PM EST) Only the most recent of2 resultswithin the time period is included. Glucose, Whole Blood 460(HH) 60 - 115 mg/dL [facility] Comment:METER #: [id number] 03/20/2024 3:43 PM EST 03/20/2024 3:46 PM EST Generic External Data Provider LAB BLOOD ORDERAB LES Final Result Performing Organization Address City/[facility] Co de Phone Number [facility] [address] [place] [address] [phone] * (ABNORMAL) VENOUS BLOOD GAS (03/20/2024 1:06 PM EST) Pathologist [facility] VBG pH 7.27(L) 7.32 - 7.43 [facility] Comment:METER #: [id number] additional_comment: Cb rodirisa VBG PCO2 55 mmHg [facility] Comment:METER #: [id number] additional_comment: Cb rodirisa VBG PO2 53 mmHg [facility] Comment:METER #: [id number] additional_comment: Cb rodirisa VBG Base Excess -1.6 mmol/L [facility] Comment:METER #: [id number] additional_comment: Cb rodirisa VBG HCO3 26 22 - 26 mmol/L [facility] Comment:METER #: [id number] additional_comment: Cb rodirisa O2 Sat, Rashad 76.0 % [facility] Comment:METER #: [id number] additional_comment: Cb ednasa 03/20/2024 1:06 PM EST 03/20/2024 1:10 PM EST Generic External Data Provider LAB BLOOD ORDERAB LES Final Result Performing Organization Address [facility] Co de Phone Number [facility] [address] [place] [address] [phone] * Partial Thromboplastin Time, Activated (APTT) (03/20/2024 12:58 PM EST) Partial Thromboplastin Time 31.7 26.0 - 36.8 SEC [facility] Comment:For information rega rding the monitoring of direct thrombininhibitors, please refer to Pharmacy. 03/20/2024 12:5 8 PM EST 03/20/2024 1:06 PM EST Generic External Data Provider LAB BLOOD ORDERAB LES Final Result Performing Organization Address [facility] Co de Phone Number [facility] [address] [place] [address] [phone] * Lactic Acid (03/20/2024 12:58 PM EST) [facility] Lactic Acid 1.7 0.5 - 2.0 mmol/L [facility] 03/20/2024 12:5 8 PM EST 03/20/2024 1:06 PM EST [employer] External Data Provider LAB BLOOD ORDERAB LES Final Result Performing Organization Address [facility] de Phone Number [facility] [address] [place] [address] [phone] * (ABNORMAL) Hepatic Function Panel (03/20/2024 12:58 PM EST) Pathologist [facility] Bilirubin, Total 0.3 0.0 - 1.0 mg/dL [facility] Bilirubin, Direct 0.1 0.0 - 0.5 mg/dL [facility] Aspartate Amino Transferase 16 5 - 37 U/L [facility] Alanine Aminotransferase 11 0 - 40 U/L [facility] Total Protein 5.9(L) 6.5 - 8.0 g/dL [facility] Albumin Level 2.4(L) 3.5 - 5.0 g/dL [facility] Alkaline Phosphatase 128(H) 39 - 117 U/L [facility] 03/20/2024 12:5 8 PM EST 03/20/2024 1:15 PM EST us Generic External Data Provider LAB BLOOD ORDERAB LES Final Result Performing Organization Address [facility] de Phone Number [facility] [address] [place] [address] [phone] * High Sensitivity Troponin I (03/20/2024 11:36 AM EST) [facility] TROPONIN I HIGH SENSITIVITY 12.8 <3.5 - 35.0 ng/L [facility] Comment:The Jimenez high sens itivity Troponin-I results should beused in conjunction with other diagnostic information suchas ECG, clinical observations and information, and patientsymptoms to aid in the diagnosis of [place]. 03/20/2024 11:3 6 AM EST 03/20/2024 11:39 AM EST Generic External Data Provider LAB BLOOD ORDERAB LES Final Result Performing Organization Address [facility] de Phone Number [facility] [address] [place] [phone] * (ABNORMAL) Complete Blood Count Manual Diff (03/20/2024 11:36 AM EST) [facility] White Blood Count 24.9(H) 4.8 - 10.8 X10*3/uL [facility] Red Blood Count 4.63 4.60 - 5.80 X10*6/uL [facility] Hemoglobin 13.1(L) 14.0 - 18.0 g/dl [facility] Hematocrit 41.4(L) 42.0 - 52.0 % [facility] Mean Corpuscular Volume 89.4 80.0 - 98.0 fL [facility] Mean Corpuscular Hemoglobin 28.3 27.0 - 33.0 pg [facility] Mean Corpuscular HGB Conc 31.6 31.0 - 36.0 g/dl [facility] Red Cell Distribution Width 14.6 11.0 - 16.0 % [facility] Platelet Count 290 160 - 400 X10*3/uL [facility] Mean Platelet Volume 12.9(H) 9.4 - 12.4 fL [facility] NRBC Pct Auto 0.0 0.0 - 0.2 /100WBC [facility] NRBC Abs Auto 0.000 0.0 - 0.012 X10*3/uL [facility] Neutrophils % Manual 80(H) 45 - 73 % [facility] Band Neutrophils Percent 5 3 - 5 % [facility] Lymphocytes Percent Manual 6(L) 20 - 40 % [facility] Monocytes Percent Manual 7 2 - 11 % [facility] EOSINOPHILS % MANUAL 1 0 - 4 % [facility] BASOPHILS % MANUAL 1 0 - 2 % [facility] NEUTROPHILS ABSOLUTE MANUAL 21.2(H) 2.0 - 8.3 X10*3/uL [facility] LYMPHOCYTES ABSOLUTE MANUAL 1.5 1.2 - 4.9 X10*3/uL [facility] MONOCYTES ABSOLUTE MANUAL 1.7(H) 0.1 - 1.2 X10*3/uL [facility] EOSINOPHILS ABSOLUTE MANUAL 0.2 0.0 - 0.4 X10*3/uL [facility] BASOPHILS ABSOLUTE MANUAL 0.2 0.0 - 0.2 X10*3/uL [facility] Platelet Estimate NORMAL NORMAL [facility] Platelet Morphology Comment NORMAL [facility] RBC Morphology NORMAL [facility] 03/20/2024 11:3 6 AM EST 03/20/2024 11:39 AM EST us Generic External Data Provider LAB BLOOD ORDERAB LES Final Result [facility] [address] [place] [phone] * SARS-CoV-2 RNA, Influenza A/B, and RSV RNA, Ql NAAT (03/20/2024 11:36 AM EST) Influenza A PCR NEGATIVE Negative [facility] Influenza B PCR NEGATIVE Negative [facility] Resp Syncy Virus RNA Qual PCR NEGATIVE Negative [facility] SARS COV2 PCR NEGATIVE Negative [facility] Comment:All test results mus t be [...] use by authorized laboratories.Testing performed on the BOLD Guidance GeneXpert utilizingreal-time RT-PCR.All SARS CoV2 and positive influenza A/B results arereported to [facility]. 03/20/2024 11:3 6 AM EST 03/20/2024 11:39 AM EST Generic External Data Provider LAB MICROBIOLOGY - GENERAL ORDERABLES Final Result Performing Organization Address [facility] Co de Phone Number [facility] [address] [place] [address] [phone] * POCT Rapid Influenza B JIMENEZ ID NOW (03/13/2024 6:11 PM EST) [facility] Influenza B Negative Negative, Indeterminate [facility] Swab 03/13/2024 6:11 PM EST Katrina Ward GLOBAL VP CREATIVE + CONTENT MARKETING POINT OF CARE TEST ENTER/EDIT O RDERABLES Final Result Performing Organization Address [facility] Co de Phone Number [facility] [address] [place] [address] [phone] * POCT Rapid Influenza A JIMENEZ ID NOW (03/13/2024 6:11 PM EST) [facility] Influenza A Negative Negative, Indeterminate [facility] Swab 03/13/2024 6:11 PM EST Katrina Appram GLOBAL VP CREATIVE + CONTENT MARKETING POINT OF CARE TEST ENTER/EDIT O RDERABLES Final Result Performing Organization Address City/[facility]/ZIP Co de Phone Number [facility] [address] [place] [phone] * POCT Rapid Covid-19 BinaxNOW (03/13/2024 6:11 PM EST) Rapid COVID Ag Negative Swab 03/13/2024 6:11 PM EST us Katrina Ward GLOBAL VP CREATIVE + CONTENT MARKETING POINT OF CARE TEST ENTER/EDIT O RDERABLES Final Result * (ABNORMAL) Lipid Panel, Standard (09/19/2023 1:43 PM EDT) Triglycerides 316(H) <150 mg/dL [facility] Comment:Desirable Triglyceri de: less than 150 mg/dLBorderline High Triglyceride 150-199 mg/dLHigh Triglyceride: 200-499 mg/dLVery High Triglyceride: greater than or equal to 5OO mg/dL Cholesterol 164 <200 mg/dL [facility] Comment:Desirable Cholestero l: less than 200 mg/dLBorderline High Cholesterol: 200-239 mg/dLHigh Cholesterol: greater than 239 mg/dL LDL Cholesterol Calculated 60 <100 mg/dL [facility] Comment:Desirable LDL: less than 100 mg/dLNear Optimal/Above Optimal LDL: 110- 129 mg/dLBorderline High LDL: 130-159 mg/dLHigh LDL: 160-189 mg/dLVery High LDL: greater than or equal to 190 mg/dL HDL Cholesterol 41 >40 mg/dL [facility] Comment:Desirable HDL: great er than 40 mg/dL Note: This HDL assay may give artificially low results in patients with liver disease. Blood Venous blood specimen / Unknown 09/19/2023 1:43 PM EDT 09/19/2023 3:53 PM EDT us Katrin López MD LAB BLOOD ORDERAB LES Final Result [facility] [address] [place] [phone] [phone] * HIV Ab/Ag ([facility]) (12/06/2022 10:21 AM EDT) [facility] HIV AB/AG Nonreactive Nonreactive [facility] Comment:HIV-1 p24 Ag and/or HIV-1/HIV-2 Ab not detected.A test result that is nonreactive does not exclude thepossibility of exposure to or infection with HIV-1 and/orHIV-2. Nonreactive results in this assay for individualswith prior exposure to HIV-1 and/or HIV-2 may be due toantigen and antibody levels that are below the limit ofdetection of this assay.The Jimenez Flame Planer HIV Ag/Ab Combo assay result andsupplemental assay results should be interpreted inconjunction with the patient's clinical presentation,history and other laboratory results. If the results areinconsistent with clinical evidence, additional testing issuggested to confirm the result. 12/06/2022 10:2 1 AM EDT 12/06/2022 11:17 AM EDT Elise Stanford [facility] BLOOD ORDERABLES Final Result [facility] [address] [place] [address] [phone] * Hepatitis Panel, General (12/06/2022 10:21 AM EDT) [facility] Hepatitis A IgM Nonreactive Nonreactive [facility] Comment:IgM antibodies to VILLANUEVA V not detected; does not exclude earlyacute or recovered HAV infection. ~Hepatitis B Surface Antibody REACTIVE Nonreactive [facility] Comment:REACTIVE: > 11.99 mI U/mL Hepatitis B Core Antibody Nonreactive Nonreactive [facility] Hepatitis C Antibody Nonreactive Nonreactive [facility] Comment:Antibodies to HCV no t detected; does not exclude early acuteHCV infection. Hepatitis B Surface Ag Negative Negative [facility] Blood 12/06/2022 10:2 1 AM EDT 12/06/2022 11:17 AM EDT us Elise Stanford HYDRAULIC MINER BLASTING LAB BLOOD ORDERABLES Final Result [facility] [address] [place] [phone] [phone] from Last 3 Months or Most Recently Relevant to Health Maintenance Insurance [facility] C3 DENTAL-[facility] MEDICAID STAND ADULT Care Teams Attendant Honor Bar Relationship Specialty Start Date End Date Katrin Santoyo MD [address] [place] [address] PCP - General Internal Medicine 12/13/22 Edison Vieira MD [address] [place] [address] Pulmonary Disease 04/07/24 Joe Devi MD [address] [facility] 3rd [place] [address] Gastroenterology 04/07/24 Carito Roche DNP [address] [facility], [address] [place] [address] Nephrology 04/07/24 [employer] 04/11/24
--- OUTSIDE RECORDS SUMMARY | 2024-06-11 12:44 | XMS_ITS | Encounter Summary ---
Author Organization [facility] Address [address] [place] [address] Care Team Providers Care Stereo Equipment Salesperson Name Role Phone Deep Pruitt APRN Primary Care Provider Reason for Visit * Reason Comments Other Encounter Details Date Type Department Care Team ([facility] Contact Info) Description 01/13/2021 Telephone [facility] [address] [place] [address] Deep Pruitt APRN [address] [place] [address] Other Social History Tobacco Use [...] any clubs o r organizations such as rastafarian groups, unions, fraternal or athletic groups, or [...] Date Recorded PHQ-2 Total Score 6 01/12/2021 [facility] - Occupational [...] a side effect fromthat medication. Patient utilizes [facility] [address] [place] [address] Patient contact [phone] documented in this encounter Plan of Treatment [...] documented as of this encounter Care Teams Stereo Equipment Salesperson Relationship Specialty Start Date End Date Deep Pruitt APRN PCP - General 05/22/19 documented as of this encounter
--- OUTSIDE RECORDS SUMMARY | 2024-06-11 12:44 | XMS_ITS | Encounter Summary ---
Author Organization [facility] Address [address] [place] [address] Care Team Providers Care Fishing Rod Mechanic Name Role Phone Deep Pruitt JOHN Primary Care Provider [phone] Encounter Details Date Type Department Care Team (Late st Contact Info) Description 02/12/2016 Scanned Document [facility] [address] [place] [address] Francisco Veloz PA [address] [place] [phone] Social History Tobacco Use Types Packs/Day [...] documented as of this encounter Care Teams Fishing Rod Mechanic Relationship Specialty Start Date End Date Deep Pruitt APRN PCP - General 05/22/19 documented as of this encounter
--- OUTSIDE RECORDS SUMMARY | 2024-06-11 12:44 | XMS_ITS | Encounter Summary ---
Author Organization [employer] Address [address] [facility] 7t [place] [address] Care Team Providers Care Space Operations Name Role Phone Elise Stanford SEWING MACHINE OPERATOR ZIPPER Primary Care Provider [phone] Katrin Santoyo MD Primary Care Pro vider Edison Vieira MD Unavailable [phone] Joe Devi MD Unavailable [phone] Encounter Details Date Type Department Care Team (Late st Contact Info) Description 12/06/2022 Telephone [facility] [address] [place] [address] Susan Manzano LPN Social History Tobacco Use [...] Critical result line call from Damaris with [facility]. Patient glucose reported as 411 today. Triage call to follow with patient. Please update PCP with critical result. documented in this encounter Plan of Treatment Upcoming Encounters Date Type Department Care Team (Late st Contact Info) Description 07/01/2024 11:00 AM EST Office Visit [facility] [address] [place] [address] documented as of this encounter Visit Diagnoses Not on filedocumented in this encounter Additional Health Concerns Assessment Noted Time PHQ-9 Depression Total Score: 023 2:05 PM EDT documented as of this encounter Care Teams Space Operations Relationship Specialty Start Date End Date Elise Stanford FNP PCP - General Family Medicine 11/24/22 12/12/22 Katrin Santoyo MD [address] [place] [address] PCP - General Internal Medicine 12/13/22 Edison Vieira MD [address] [place] [address] Pulmonary Disease 04/07/24 Joe Devi MD [address] [facility] 3rd [place] [address] Gastroenterology 04/07/24 Carito Roche DNP [address] [facility], [address] [place] [address] Nephrology 04/07/24 [place] 04/11/24 documented as of this encounter
--- OUTSIDE RECORDS SUMMARY | 2024-06-11 12:44 | XMS_ITS | Encounter Summary ---
Author Organization [facility] Address [address] [place] [address] Care Team Providers Care Provider Relations Advocate Name Role Phone ThrallDeep medina Niko LOPEZ Primary Care Provider [phone] Encounter Details Date Type Department Care Team (Late st Contact Info) Description 02/19/2020 Scanned Document [facility] [address] [place], [place] [phone] Arben Fountain, NOLVIA [address] [place] [address] Social History Tobacco Use Types [...] Answer Date Recorded PHQ-2 Score 2 10/02/2019 [facility] of Occupat ional Health - Occupational Stress [...] documented as of this encounter Care Teams Provider Relations Advocate Relationship Specialty Start Date End Date Deep Pruitt APRN PCP - General 05/22/19 documented as of this encounter
--- OUTSIDE RECORDS SUMMARY | 2024-06-11 12:44 | XMS_ITS | Clinical Summary ---
Author Organization [facility] Address [address] [facility] [address] [place] [address] Phone Care Team Providers Care Former Hand Name Role Phone Katrin Brumfield Primary Care [...] 4 12/04/19 25 Active ergocalciferol 1.25 MG (78117 UT) capsule Take 1 capsule (50,000 Units [...] (01/25/2023): information and pathology of colonospcy in [facility] 09-09-2020 note Asthma 01/06/2023 01/25/2023 Arthritis 01/06/2023 [...] AM with Arben Fountain DPM at the [facility] -Will f/u with Pt in a month [...] 1,500 - 7,800 cells/uL 9,116 (H) 04/14/2020 Jaun Chino MD to Deep Pruitt APRN; eConsult [...] (see MRI of Brain from 2017 under [facility] Multimedia -Significant deficits on neurologic exam Memory loss and Left handed weakness -Imaging and prior evaluation -Current blood thinning agents is aspirin -Potential details to include, when relevant: poor GAIT, uses a walker to get around -How the diagnosis was made: Pt lived in [facility] at the time, Under Multimedia in [facility] see specific file at specific date [id number] Image MRI Result [facility] - MRI BRAIN CVA -09/25/2016 [id number] Image Evaluation [facility]- Left handed weakness note - 02/20/2017 [...] 2019, the Pt needs to call the [facility] [address] [place], [place] [phone] Diabetic foot 02/07/2019 01/25/2023 01/25/2023 Overview (01/25/2023): Last Assessment & Plan: The Pt continues to deal with bilateral foot pain and wears a pair of Diabetic shoes with specification ordered by his Activities Aide Doctor Patient encounter status 02/07/2019 01/25/2023 Overview [...] -Pt will be called biweekly by the [facility] Nurse to review his FBS finger sticks [...] medications -He has been following with the [place] [facility] team and reports taking all of [...] decided to move [place] back to [place] area due to being closer to family [...] [place] [address] [place] [address] Efren Quispe MD Stage 3b [...] Office Visit [facility] [address] [phone] Isha Ruth ARNP [address] [address] Health Maintenance Due Date Last [...] Insurance [place] Care Teams Former Hand Relationship Specialty Start Date End Date Katrin Brumfield [address] [place] [address] PCP - General 04/17/23
--- OUTSIDE RECORDS SUMMARY | 2024-06-11 12:44 | XMS_ITS | Encounter Summary ---
Author Organization [employer] [facility] Address [address] [facility] 7t [place] [address] Care Team Providers Care Underwriting Technician Name Role Phone Elise Stanford Primary Care Provider [phone] Katrin Santoyo MD Primary Care Pro vider Edison Vieira MD Unavailable [phone] Joe Devi MD Unavailable [phone] Encounter Details Date Type Department Care Team (Latest Contact Info) Description 09/04/2018 Abstract [facility] Dental, Provider, DDS Social History [...] EST Office Visit [facility] [address] [place] [address] documented as of this encounter Visit Diagnoses Not on filedocumented in this encounter Care Teams Underwriting Technician Relationship Specialty Start Date End Date Elise Stanford FNP PCP - General Family Medicine 11/24/22 12/12/22 Katrin Santoyo MD [address] [place] [address] PCP - General Internal Medicine 12/13/22 Edison Vieira MD [address] [place] [address] Pulmonary Disease 04/07/24 Joe Devi MD [address] 3rd [place] [address] Gastroenterology 04/07/24 Carito Roche DNP [address], [address] [place] [address] Nephrology 04/07/24 [place] 04/11/24 documented as of this encounter
--- OUTSIDE RECORDS SUMMARY | 2024-06-11 12:44 | XMS_ITS | Encounter Summary ---
Author Organization [employer] Address [address] [facility] 7t [place] [address] Care Team Providers Care Vortex Operator Name Role Phone Elise Stanford HEALTH ASSISTANT Primary Care Provider [phone] Katrin Santoyo MD Primary Care Pro vider Edison Vieira MD Unavailable [phone] Joe Devi MD Unavailable [phone] Encounter Details Date Type Department Care Team (Late st Contact Info) Description 12/06/2022 Telephone [facility] [address] [place] [address] Susan Manzano LPN Social History Tobacco Use [...] glucose of 411 today. Call placed via [employer] airplane engineer [phone] patient updated that BG this morning elevated. [...] Description 07/01/2024 11:00 AM EST Office Visit [facility] [address] [place] [address] documented as of this encounter Visit Diagnoses Not on filedocumented in this encounter Additional Health Concerns Assessment Noted Time PHQ-9 Depression Total Score: 24 023 2:05 PM EDT documented as of this encounter Care Teams Vortex Operator Relationship Specialty Start Date End Date Elise Stanford FNP PCP - General Family Medicine 11/24/22 12/12/22 Katrin Santoyo MD [address] [place] [address] PCP - General Internal Medicine 12/13/22 Edison Vieira MD [address] [place] [address] Pulmonary Disease 04/07/24 Joe Devi MD [address] [place] [address] Gastroenterology 04/07/24 Carito Roche DNP [address] [facility] [address] [place] [address] Nephrology 04/07/24 [employer] 04/11/24 documented as of this encounter
--- OUTSIDE RECORDS SUMMARY | 2024-06-11 12:44 | XMS_ITS | Encounter Summary ---
Author Organization [facility] Address [address] [place] [address] Care Team Providers Care Director Operating Room Name Role Phone Deep Pruitt JOHN Primary Care Provider Encounter Details Date Type Department Care Team (Late st Contact Info) Description 01/01/2018 Scanned Document [facility] [address] [place], [place] [address] Francisco Veloz PA [address] [place] [phone] Social History Tobacco Use Types Packs/Day [...] as of this encounter Care Teams Director Operating Room Relationship Specialty Start Date End Date Deep Pruitt APRN PCP - General 05/22/19 documented as of this encounter
--- OUTSIDE RECORDS SUMMARY | 2024-06-11 12:44 | XMS_ITS | Clinical Summary ---
Author Organization [facility] Address [address] [place] [address] Phone Care Team Providers Care Hvac Operations Technician Name Role Phone Physician, No Pcp Primary [...] EST - 04/08/2024 4:25 PM EST Emergency [facility] Emergency [address] [place] [phone] Nils Silverman MD Cervical strain, acute, initial [...] Signed Date: 04/08/2024 15:28 ET Workstation ID: [id number] Transcribed By: Self Edit Transcribed Date: 04/08/2024 [...] Signed Date: 04/08/2024 15:28 ET Workstation ID: [id number] Transcribed By: Self Edit Transcribed Date: 04/08/2024 [...] Signed Date: 04/08/2024 15:24 ET Workstation ID: [id number] Transcribed By: Self Edit Transcribed Date: 04/08/2024 [...] Signed Date: 04/08/2024 15:24 ET Workstation ID: [id number] Transcribed By: Self Edit Transcribed Date: 04/08/2024 [...] Nina Hennessy Reviewed and Electronically Signed By: iNna Hennessy Signed Date: 04/08/2024 15:26 ET Workstation ID: [id number] Transcribed By: Self Edit Transcribed Date: 04/08/2024 [...] Signed Date: 04/08/2024 15:26 ET Workstation ID: [id number] Transcribed By: Self Edit Transcribed Date: 04/08/2024 [...] Signed Date: 04/08/2024 15:26 ET Workstation ID: [id number] Transcribed By: Self Edit Transcribed Date: 04/08/2024 [...] Signed Date: 04/08/2024 15:26 ET Workstation ID: [id number] Transcribed By: Self Edit Transcribed Date: 04/08/2024 15:24 ET Codi VICTORIA IMG XR PROCEDURES * Annual BMP Blood Test (11/07/2023) Pathologist [facility] Annual BMP Blood Test Abstracted Historical Provider MD [employer] * Lipid panel (09/19/2023) [facility] Triglycerides 0 mg/dL Comment:No interpretation Cholesterol 0 mg/dL Comment:No interpretation HDL 0 mg/dL Comment:No interpretation LDL Cholesterol 0 mg/dL Comment:No interpretation Blood Venous blood specimen / Unknown Historical Provider LAB BLOOD ORDERAB LES * Urine Albumin Creatinine Ratio (05/19/2023) [facility] Urine Albumin Creatinine Ratio Abstracted Historical Provider MD [employer] * Hemoglobin A1c (05/17/2023) [facility] Hemoglobin A1C 0.0 % Comment:No interpretation Blood Venous blood specimen / Unknown Historical Provider LAB BLOOD ORDERAB LES * HIV Screening (12/06/2022) [facility] HIV Screening Abstracted Historical Provider MD [employer] * Hepatitis C Screening (12/06/2022) [facility] Hepatitis C Screening Abstracted Historical Provider [facility] [employer] from Last 3 Months or Most Recently Relevant to Health Maintenance Care Teams Hvac Operations Technician Relationship Specialty Start Date End Date Physician, No Pcp PCP - General 04/08/24
--- OUTSIDE RECORDS SUMMARY | 2024-06-11 12:44 | XMS_ITS | Encounter Summary ---
Author Organization [employer] Address [address] [facility] 7t [place] [address] Care Team Providers Care Library Acquisitions Technician Name Role Phone Katrin Santoyo MD Primary Care Pro vider Edison Vieira MD Unavailable [phone] Joe Devi MD Unavailable Reason for Visit * Reason Onset Date Comments Referral 04/05/2023 Encounter Details Date Type Department Care Team (Late st Contact Info) Description 04/05/2023 Telephone [facility] [address] [place], [place] [phone] Katrin Santoyo MD [address] [place], [place] [phone] Referral Social History Tobacco Use Types Packs/Day [...] Bhardwaj - 04/06/2023 10:27 AM EST Called [facility] for an update and they stated [...] Gastro made on 04/04/2023 sent to [address] [facility], states that they called facility and facility informs that their missing a summary form. Please contact pt at [phone] Latvian Speaker documented in this encounter Plan of Treatment Upcoming Encounters Date Type Department Care Team (Late st Contact Info) Description 07/01/2024 11:00 AM EST Office Visit [facility] [address] [place] [address] documented as of this encounter Goals Goal [...] documented as of this encounter Care Teams Library Acquisitions Technician Relationship Specialty Start Date End Date Katrin Santoyo MD [address] [place] [phone] PCP - General Internal Medicine 12/13/22 Edison Vieira MD [address] [place] [address] Pulmonary Disease 04/07/24 Joe Devi MD [address] [facility] 3rd [place] [address] Gastroenterology 04/07/24 Carito Roche DNP [address] [facility], [address] [place] [address] Nephrology 04/07/24 [employer] 04/11/24 documented as of this encounter
--- OUTSIDE RECORDS SUMMARY | 2024-06-11 12:44 | XMS_ITS | Encounter Summary ---
Author Organization [facility] Address [address] [place] [address] Care Team Providers Care Manager Of Medical Name Role Phone PullmanDeep medina Niko LOPEZ Primary Care Provider Encounter Details Date Type Department Care Team (Late st Contact Info) Description 02/19/2020 Scanned Document [facility] [address] [place], [place] [phone] Arben Fountain, NOLVIA [address] [place] [address] Social History Tobacco Use Types [...] Answer Date Recorded PHQ-2 Score 2 10/02/2019 [facility] of Occupat ional Health - Occupational Stress [...] as of this encounter Care Teams Manager Of Medical Relationship Specialty Start Date End Date Deep Pruitt APRN PCP - General 05/22/19 documented as of this encounter
--- OUTSIDE RECORDS SUMMARY | 2024-06-11 12:44 | XMS_ITS | Encounter Summary ---
Author Organization [facility] Address [address] [place] [address] Care Team Providers Care Surfacer Name Role Phone Sonal Deep Niko LOPEZ Primary Care Provider Reason for Visit * Reason Comments Medication Refill Encounter Details Date Type Department Care Team (Late st Contact Info) Description 01/04/2021 Refill [facility] Nutrition at [address] [address] Zena Hines PA [address] [place] [phone] Medication Refill Social History Tobacco Use [...] any clubs o r organizations such as orthodox groups, unions, fraternal or athletic groups, [...] Recorded PHQ-2 Total Score 0 11/18/2020 [facility] of Occupat ional Health [...] documented as of this encounter Care Teams Surfacer Relationship Specialty Start Date End Date Deep Pruitt APRN PCP - General 05/22/19 documented as of this encounter
--- OUTSIDE RECORDS SUMMARY | 2024-06-11 12:44 | XMS_ITS | Encounter Summary ---
Author Organization [facility] Address [address] [place] [address] Care Team Providers Care Layer Out Plate Glass Name Role Phone Deep Pruitt JOHN Primary Care Provider Encounter Details Date Type Department Care Team (Late st Contact Info) Description 04/05/2017 Scanned Document [facility] [address] [place], [place] [phone] Francisco Veloz PA [address] [place] [phone] Social History Tobacco Use Types Packs/Day [...] documented as of this encounter Care Teams Layer Out Plate Glass Relationship Specialty Start Date End Date Deep Pruitt APRN PCP - General 05/22/19 documented as of this encounter
--- OUTSIDE RECORDS SUMMARY | 2024-06-11 12:44 | XMS_ITS | Encounter Summary ---
Author Organization [facility] Address [address] [place] [address] Care Team Providers Care Freezer Machine Operator Name Role Phone Deep Pruitt JOHN Primary Care Provider Encounter Details Date Type Department Care Team (Late st Contact Info) Description 02/20/2017 Scanned Document [facility] [address] [place] [address] Francisco Veloz PA [address] [place] [phone] Social History Tobacco Use Types Packs/Day [...] documented as of this encounter Care Teams Freezer Machine Operator Relationship Specialty Start Date End Date Deep Pruitt APRN PCP - General 05/22/19 documented as of this encounter
--- OUTSIDE RECORDS SUMMARY | 2024-06-11 12:45 | XMS_ITS | Encounter Summary ---
Author Organization [facility] Address [address] [place] [address] Care Team Providers Care Preparation Supervisor Freezing Name Role Phone Deep Pruitt APRN Primary Care Provider [phone] Reason for Visit * Reason Comments Medication Refill Encounter Details Date Type Department Care Team ([facility] st Contact Info) Description 11/11/2020 Refill [facility] [address] [place] [address] Deep Pruitt APRN [address] [place] [phone] Medication Refill Social History Tobacco Use [...] any clubs o r organizations such as religious groups, unions, fraternal or athletic groups, or [...] Answer Date Recorded PHQ-2 Score 2 07/07/2020 [facility] of Occupat ional [facility] - Occupational Stress Questionnaire Answer [...] documented as of this encounter Care Teams Preparation Supervisor Freezing Relationship Specialty Start Date End Date Deep Pruitt APRN PCP - General 05/22/19 documented as of this encounter
--- OUTSIDE RECORDS SUMMARY | 2024-06-11 12:45 | XMS_ITS | Encounter Summary ---
Author Organization [facility] [employer] [facility] Address [address] [place] [phone] Care Team Providers Care Performance Test Consultant Name Role Phone Deep Pruitt APRN Primary Care Provider Reason for Visit * Reason Onset Date Comments Medication Refill 10/12/2021 Encounter Details Date Type Department Care Team (Late st Contact Info) Description 10/12/2021 Refill [facility] [address] [facility] [address] [facility] 2nd [place] [address] Taylor Malagon, [facility] [address] [place] [phone] Medication Refill Social History Tobacco Use Types [...] Recorded PHQ-2 Total Score 0 10/12/2021 [facility] of Occupat ional [facility] - Occupational Stress Questionnaire Answer Date [...] documented as of this encounter Care Teams Performance Test Consultant Relationship Specialty Start Date End Date Deep Pruitt APRN PCP - General 05/22/19 documented as of this encounter
--- OUTSIDE RECORDS SUMMARY | 2024-06-11 12:45 | XMS_ITS | Encounter Summary ---
Author Organization [facility] Address [address] [place] [address] Care Team Providers Care Retention Specialist Name Role Phone Deep Pruitt APRN Primary Care Provider [phone] Reason for Visit * Reason Comments Other Appointment Encounter Details Date Type Department Care Team ([facility] Contact Info) Description 10/07/2021 Telephone [facility] [address] [place] [address] Deep Pruitt APRN [address] [place] [address] Other; Appointment Social History Tobacco [...] Date Recorded PHQ-2 Total Score 0 10/07/2021 [facility] of Occupat ional Health - [...] after dropped call ,patient has virtual appt [phone] documented in this encounter Plan of Treatment Not on file documented as of this encounter Visit Diagnoses Not on filedocumented in this encounter Additional Health Concerns Infection Onset Date Last Indicated Resolved Time COVID-19 09/29/2021 09/29/2021 10/19/2021 7:19 PM EDT Assessment Noted Time PHQ-9 Depression Total Score: 0 10/08/19 22 1:27 PM EDT documented as of this encounter Care Teams Retention Specialist Relationship Specialty Start Date End Date Deep Pruitt APRN PCP - General 05/22/19 documented as of this encounter
--- OUTSIDE RECORDS SUMMARY | 2024-06-11 12:45 | XMS_ITS | Encounter Summary ---
Author Organization [facility] Address [address] [place] [address] Care Team Providers Care [employer]s Worker Name Role Phone Romelia Pruittian Niko LOPEZ Primary Care Provider Encounter Details Date Type Department Care Team (Late st Contact Info) Description 09/06/2021 Scanned Document [facility] [address] [place] [address] External, Provider Social History Tobacco Use Types [...] Date Recorded PHQ-2 Total Score 2 09/08/2021 [facility] of Occupat ional Health - [...] documented as of this encounter Care Teams [employer] Worker Relationship Specialty Start Date End Date Deep Pruitt APRN PCP - General 05/22/19 documented as of this encounter
--- OUTSIDE RECORDS SUMMARY | 2024-06-11 12:45 | XMS_ITS | Encounter Summary ---
Author Organization [facility] Address [address] [place] [address] Care Team Providers Care State'S Attorney Name Role Phone Deep Pruitt APRN Primary Care Provider Encounter Details Date Type Department Care Team ([facility] st Contact Info) Description 11/14/2020 Scanned Document [facility] [address] [place], [place] [phone] Deep Pruitt APRN [address] [place] [address] Social History Tobacco Use Types [...] often do you attend chur ch or religion services? Never 01/03/2020 Do you belong to any clubs o r organizations such as rastafari groups, unions, fraternal or athletic groups, or [...] Date Recorded PHQ-2 Total Score 0 11/18/2020 [facility] of Occupat ional Health [...] documented as of this encounter Care Teams State'S Attorney Relationship Specialty Start Date End Date Deep Pruitt APRN PCP - General 05/22/19 documented as of this encounter
--- OUTSIDE RECORDS SUMMARY | 2024-06-11 12:45 | XMS_ITS | Encounter Summary ---
Author Organization [facility] Address [address] [place] [address] Care Team Providers Care Environmental Health Specialist Name Role Phone Deep Pruitt APRN Primary Care Provider Reason for Visit * Reason Comments Medication Refill Encounter Details Date Type Department Care Team ([facility] st Contact Info) Description 11/11/2020 Refill [facility] [address] [place] [address] Deep Pruitt APRN [address] [place] [phone] Medication Refill Social History Tobacco Use [...] Answer Date Recorded PHQ-2 Score 2 07/07/2020 [facility] of Occupat ional [facility] - Occupational Stress Questionnaire Answer [...] documented as of this encounter Care Teams Environmental Health Specialist Relationship Specialty Start Date End Date Deep Pruitt APRN PCP - General 05/22/19 documented as of this encounter
--- OUTSIDE RECORDS SUMMARY | 2024-06-11 12:45 | XMS_ITS | Encounter Summary ---
Author Organization [facility] Address [address] [place] [address] Care Team Providers Care Cabinetmaker Apprentice Name Role Phone Deep Pruitt APRN Primary Care Provider Reason for Visit * Reason Comments Other Advice Only Encounter Details Date Type Department Care Team ([facility] Contact Info) Description 09/28/2021 Telephone [facility] [address] [place] [address] Deep Pruitt APRN [address] [place] [address] Other; Advice Only Social History [...] Date Recorded PHQ-2 Total Score 5 09/14/2021 [facility] of Occupat ional Health - Occupational [...] be given because his underlying condition. Patient [phone] documented in this encounter Plan of Treatment Not on file documented as of this encounter Visit Diagnoses Not on filedocumented in this encounter Additional Health Concerns Infection Onset Date Last Indicated Resolved Time COVID-19 09/29/2021 09/29/2021 10/19/2021 7:19 PM EDT Assessment Noted Time PHQ-9 Depression Total Score: 7 09/15/19 22 10:31 AM EDT documented as of this encounter Care Teams Cabinetmaker Apprentice Relationship Specialty Start Date End Date Deep Pruitt APRN PCP - General 05/22/19 documented as of this encounter
--- OUTSIDE RECORDS SUMMARY | 2024-06-11 12:45 | XMS_ITS | Encounter Summary ---
Author Organization [facility] Address [address] [place] [address] Care Team Providers Care Engine Room Operator Name Role Phone Deep Pruitt APRN Primary Care Provider Reason for Visit * Reason Comments Medication Refill Encounter Details Date Type Department Care Team ([facility] st Contact Info) Description 09/23/2020 Refill [facility] [address] [place] [address] Deep Pruitt APRN [address] [place] [phone] Medication Refill Social History Tobacco Use [...] [facility] of Occupat ional [facility] - Occupational Stress Questionnaire Answer Date [...] documented as of this encounter Care Teams Engine Room Operator Relationship Specialty Start Date End Date Deep Pruitt APRN PCP - General 05/22/19 documented as of this encounter
--- OUTSIDE RECORDS SUMMARY | 2024-06-11 12:45 | XMS_ITS | Encounter Summary ---
Author Organization [facility] Address [address] [place] [address] Care Team Providers Care Waxer Floor Name Role Phone BryantRomeliaDeep Niko LOPEZ Primary Care Provider Reason for Visit * Reason Onset Date Comments Medication Refill 10/12/2021 Encounter Details Date Type Department Care Team (Late st Contact Info) Description 10/12/2021 Refill [facility] [address] [place] [address] Cecile Oneal, DMD [address] [place] [address] Medication Refill Social History Tobacco [...] Date Recorded PHQ-2 Total Score 0 10/12/2021 [facility] of Occupat ional Health - [...] documented as of this encounter Care Teams Waxer Floor Relationship Specialty Start Date End Date Deep Pruitt APRN PCP - General 05/22/19 documented as of this encounter
--- OUTSIDE RECORDS SUMMARY | 2024-06-11 12:45 | XMS_ITS | Encounter Summary ---
Author Organization [facility] Address [address] [place] [address] Care Team Providers Care Senior Quality Assurance Engineer Name Role Phone TucsonDeep medina Niko LOPEZ Primary Care Provider Reason for Visit * Reason Onset Date Comments Medication Refill 09/22/2021 Encounter Details Date Type Department Care Team (Late st Contact Info) Description 09/22/2021 Refill [facility] Nutrition at [address] [address] Zena Hines PA [address] [place] [phone] Medication Refill Social History Tobacco Use [...] Date Recorded PHQ-2 Total Score 5 09/14/2021 [facility] of Occupat ional Health - [...] - 09/22/2021 8:50 AM EDT Hi, Dr Laazro Please review pt is no longer seeing Zena Hines at [facility] for DM mangement. Nate, Katrin documented in [...] as of this encounter Care Teams Senior Quality Assurance Engineer Relationship Specialty Start Date End Date Deep Pruitt APRN PCP - General 05/22/19 documented as of this encounter
--- OUTSIDE RECORDS SUMMARY | 2024-06-11 12:45 | XMS_ITS | Encounter Summary ---
Author Organization [facility] Address [address] [place] [address] Care Team Providers Care Patient Financial Representative Name Role Phone Romelia Pruittian Niko LOPEZ Primary Care Provider [phone] Encounter Details Date Type Department Care Team (Late st Contact Info) Description 09/08/2021 Scanned Document [facility] [address] [place] [address] External, Provider Social History Tobacco Use Types [...] often do you attend chur ch or yarsani services? Never 01/03/2020 Do you belong to [...] Date Recorded PHQ-2 Total Score 2 09/08/2021 [facility] of Occupat ional Health - Occupational [...] as of this encounter Care Teams Patient Financial Representative Relationship Specialty Start Date End Date Deep Pruitt APRN PCP - General 05/22/19 documented as of this encounter
--- OUTSIDE RECORDS SUMMARY | 2024-06-11 12:45 | XMS_ITS | Clinical Summary ---
Author Organization [address] Address [address] [place] [id number] Care Team Providers Care Top Lifter Name Role Phone Deep Pruitt APRN Primary [...] edema will order Compression sleeves today from [facility] today, Put on lower legs during [...] of insulin, Duration 99, Feeding difficulty R63.30 13357 mL 06/23/19 Active metFORMIN (GLUCOPHAGE) 1000 mg [...] AM with Arben Fountain DPM at the [facility] -Will f/u with Pt in a month [...] appointment and was informed he can call [phone] to find a closer time Assessment & Plan (02/19/2022 1:59 PM EDT): -The Pt went to his Timber Spotter and was c/o right kidney pain for [...] worse at night - pathway utilized through [facility], patient eligible for molnupiravir, may benefit from [...] Ref. Range 04/07/2020 SPEP Interpretation Unknown ?? Vqlji-9-Fpsicxof Latest Ref Range: 0.2 - 0.3 g/dL 0.3 Dpwzk-4-Gowmznil Latest Ref Range: 0.5 - 0.9 g/dL 1.1 (H) Interpretation Unknown Comment Only Abnormal Protein Band 2 Latest Ref Range: NONE DETECTED g/dL CANCELED Abnormal Protein Band 3 Latest Ref Range: NONE DETECTED g/dL CANCELED Nptq-4-Nqjrtjjw Latest Ref Range: 0.4 - 0.6 g/dL 0.5 Ugjl-6-Ahspmwvd Latest Ref Range: 0.2 - 0.5 g/dL [...] 04/08/2020 17:50 ?? Ref. Range 04/07/2020 Free Onida Latest Ref Range: 3.3 - 19.4 mg/L 35.9 (H) Free Lambda Latest Ref Range: 5.7 - 26.3 mg/L 26.6 (H) Free Onida/Lambda Ratio Latest Ref Range: 0.26 - 1.65 [...] 15:12 Ref. Range 04/07/2020 SPEP Interpretation Unknown Ttgzl-0-Bdyxcgvd Latest Ref Range: 0.2 - 0.3 g/dL 0.3 Kncdk-9-Jvswbjrf Latest Ref Range: 0.5 - 0.9 g/dL 1.1 (H) Interpretation Unknown Comment Only Abnormal Protein Band 2 Latest Ref Range: NONE DETECTED g/dL CANCELED Abnormal Protein Band 3 Latest Ref Range: NONE DETECTED g/dL CANCELED Digh-9-Xhpxkxnr Latest Ref Range: 0.4 - 0.6 g/dL 0.5 Bgaq-1-Xtqvacfs Latest Ref Range: 0.2 - 0.5 g/dL [...] 04/08/2020 17:50 ?? Ref. Range 04/07/2020 Free Onida Latest Ref Range: 3.3 - 19.4 mg/L 35.9 (H) Free Lambda Latest Ref Range: 5.7 - 26.3 mg/L 26.6 (H) Free Onida/Lambda Ratio Latest Ref Range: 0.26 - 1.65 [...] of 04/08/2020 17:50 Ref. Range 04/07/2020 Free Onida Latest Ref Range: 3.3 - 19.4 mg/L 35.9 (H) Free Lambda Latest Ref Range: 5.7 - 26.3 mg/L 26.6 (H) Free Onida/Lambda Ratio Latest Ref Range: 0.26 - 1.65 [...] like to speak with his pcp first [phone] Phone Conversation with Pt over the phone: PCP called italian speaking (uncontrolled diabetic) Pt over the phone, [...] Tried to call the Pt using the Eritrean Interpretor [id number], V/M was not set up [...] have CC'd Ricarda Du MD, his primary crawler dragline operator. She has a phone consult with him [...] all the Pt medication bottle be in italian, Pt had a medication (allopurinoL (ZYLOPRIM) 100 mg tablet) error because he can not read in Vietnamese, the Pt was prescribed 1/2 tab but [...] next appointment to see me at the restaurant front manager ?? Latest Reference Range & Units 09/09/21 12/15/21 BUN 7 - 25 mg/dL 31 (H) 29 (H) Creatinine 0.70 - 1.30 mg/dL 1.40 (H) 1.55 (H) BUN/Creatinine Ratio 6 - 22 (calc) 22.1 19 eGFR (NON -Tongan) >60 mL/min/1.73m2 53 eGFR (Afr Amer) >60 [...] Range: 8.0 - 23.0 22.1 eGFR (NON -Tongan) Latest Ref Range: >60 mL/min/1.73m2 53 eGFR [...] Taylor Malagon APRN at the Nephrology at [address] [place] [address], The Renal department is working on getting the Pt a 24 hour HTN monitor to assess the effectiveness of his recent medication changes, used italian interpretor 9230 ?? 07/13/2021 Renal Referral Note:?? Assessment and [...] effectiveness of his recent medication changes, used italian interpretor 9217 07/13/2021 Renal Referral Note: Assessment [...] given a referral to talk with the [facility] Production Graphic Designer for further assessment of his current diet [...] and magnesium supplements that he said a bark grinder told him were good for his kidneys. [...] preparation for his first visit with a crawler dragline operator, Ricarda Du MD on 04/07/2020. Assessment & Plan (02/12/2020 2:18 PM EDT): Pt was recently in the hospital for Kidney issues, the Pt missed a previous Kidney appointment and will ask Pt to reschedule another Kidney appointment Date & Time 02/25/2020 10:00 AM Provider Taylor Malagon APRN Department [facility] at [address] [facility] Nephrology [address] [facility] 2nd Floor [facility] [address] Comment: Pt needs a Kidney referral due [...] 23 (H) 23 (H) 14.7 eGFR (NON -Tongan) Latest Ref Range: >60 mL/min/1.73m2 76 77 [...] (see MRI of Brain from 2017 under [facility] Multimedia -Significant deficits on neurologic exam Memory loss and Left handed weakness -Imaging and prior evaluation -Current blood thinning agents is aspirin -Potential details to include, when relevant: poor GAIT, uses a walker to get around -How the diagnosis was made: Pt lived in [facility] at the time, Under Multimedia in [place] see specific file at specific date [id number] Image MRI Result [facility] - MRI BRAIN CVA -09/25/2016 [id number].TIF Image Evaluation [facility]- Left handed weakness note - 02/20/2017 [...] a letter to be given to the [employer] advising stating that the Pt is disabled and needs help with housing Is there a form to be fill out from the [employer] advising that the Pt is disabled and needs help with housing t 03/26/21 Oksana Fox to Deep Pruitt NP Summary: Letters needed by patient This law writer met with patient at the clinic today 03.26.21 per nurses request, to assistance with letters that the patient is requesting. This law writer spoke to patient and patient is [...] Patient is also requesting a letter for [employer] advising that he is disabled. Patient stated that he has already applied for and wants this letter to help him get Housing CCM: 15 minutes 04/11/2021 Deep Pruitt APRN Assessment & Plan (05/31/2020 5:20 PM EST): Pt had a CVA from 2017 and needs Neuro clearance before getting a Colonoscopy Presumed etiology of prior stroke (see MRI of Brain from 2017 under [facility] Multimedia Significant deficits on neurologic exam Memory loss and Left handed weakness Imaging and prior evaluation Current blood thinning agents is aspirin Potential details to include, when relevant: poor GAIT, uses a walker to get around How the diagnosis was made: Pt lived in [facility] at the time, Under Multimedia in [place] see specific file at specific date [id number].TIF Image MRI Result [facility] - MRI BRAIN CVA -09/25/2016 [id number].TIF Image Evaluation [facility]- Left handed weakness note - 02/20/2017 Required [...] is working with his Diabetic Specialist at [facility] and has an appointment next week, will increase his Gababentin to 800 mg PO TID which has helped with his neuropathic pain, Spent 25 mins with Pt using the Courtesy Driver Microalbuminuric diabetic nephropathy (HC Code) (HC CODE) [...] Ricarda Du MD at the Nephrology at [address] [place] [address] Results for DARREL BHARDWAJ ( ) as [...] ) as of 09/19/2019 07:04 eGFR (NON -Tongan) Latest Ref Range: > OR = 60 [...] for Bariatric surgery and Pt needs a weigh tank operator Assessment & Plan (09/10/2021 5:42 PM EDT): Pt has a BMI of 40.4 and is working with the wellness clinic to work on his weight loss plan, putting a referral in for Bariatric surgery and Pt needs a weigh tank operator Assessment & Plan (09/26/2019 9:45 AM EDT): Pt has a BMI of 40.4 and is working with the wellness clinic to work on his weight loss plan, putting a referral in for Bariatric surgery and Pt needs a weigh tank operator Assessment & Plan (09/09/2019 2:47 PM [...] whole encounter. The interview was conducted in Eritrean which is my [place] language. I have encouraged Mr. Bhardwaj to contact us with any questions, concerns or clinical changes. Plan: 1. Continue current therapy. 2. No need for supplemental oxygen. Assessment & Plan (12/23/2021 12:10 PM EDT): -The Pt continues to feel like he is constantly SOB and is asking to be put on Oxygen STACKER DRIVER -The Pt was given a list of labs to complete and once done then the Pt will be scheduled appointment with his Criminal Legal Assistant -The Pt and the Criminal Legal Assistant will decide together if the pt needs to be on O2 STACKER DRIVER or not 08/18/2021 Pulmonary Note: Assessment: Mr. [...] ways in which he can request an denture processor over the phone and I am happy [...] complaints are out of proportion to seemingly qpop-pt-ypfiggkt asthma and his dyspnea is likely multifactorial. [...] ways in which he can request an denture processor over the phone and I am happy [...] complaints are out of proportion to seemingly lppq-bk-nfzoviac asthma and his dyspnea is likely multifactorial. [...] and documentation in collaboration with Dr. Deep Yo. ?? [facility] Quality Initiatives: ?? Tobacco counseling: Patient [...] allergies spent 20 mins with Pt using Eritrean Interpretor 1674 Assessment & Plan (11/14/2020 11:15 [...] 7 years for colon cancer screening purposes.??Used Eritrean interpretor 8245 Assessment & Plan (06/16/2021 10:23 [...] years for colon cancer screening purposes. Used Eritrean interpretor 8245 Assessment & Plan (09/13/2020 7:30 [...] years for colon cancer screening purposes. Used Eritrean interpretor 3293 Assessment & Plan (06/24/2020 4:13 PM EST): Pt was informed of the following message and told to call and was asked to call to make a colonoscopy appointment 06/03/20 12:29 PM Message from [facility] at [address] [place] [address] Called patient to cancel pre colon appointment, [...] year ago the Pt had colonoscopy at [facility] in [facility] and was told to return in [...] Pt had an Upper Endoscopy completed by eHdy Lemons Procedure: UPPER GI ENDOSCOPY; DX, W/WO SPECIMEN COLLECTION, BRUSHING/WASHING w/ biopsies Please let Pt know that his Stomach Biopsy results were negative for H-Pylori Clinical History and Impression: Preop and postop diagnosis: GERD (gastroesophageal reflux disease) PATHOLOGY REPORT ? Patient: DARREL BHARDWAJ ?MR #: [id number] ([id number]) ?Submitted by: Hedy Hameed MD STOMACH, BIOPSY [...] disordered breathing. RECOMMENDATIONS / PLAN : -Current [employer] recommendations for treatment of [...] Pt Called patient with Jose Rolon. Nancy #[id number]. Patient said that he has an old ResMed that he received in [place]. He doesn't know his mode or settings. Nor does he know his previous DME Assessment & Plan (09/10/2021 5:40 PM EDT): The Pt has an Sleep Apnea appointment on 09/24/2021 at??4:20 PM with Ryanne Ocasio MD at the Diabetes Center at [address] [facility] Assessment & Plan (09/24/2019 3:03 PM EDT): [...] spent 45 mins with Pt with a drug abuse treatment specialist SLEEP STUDY - [facility] - [phone] Assessment & Plan (09/09/2019 3:22 PM EDT): Pt typically sleep 2.5 hours a night, Pt still has to return [place] sleep apnea machine to [place] before a sleep apnea clinic in [place] will talk to him, Pt has a BMI of 40.4 and PCP will put a referral in for sleep apnea for Pt today, spent 35 mins with Pt with a drug abuse treatment specialist Diabetic foot (HC Code) (HC CODE) 02/07/2019 Assessment & Plan (06/24/2022 9:27 AM EST): The Pt continues to deal with bilateral foot pain and wears a pair of Diabetic shoes with specification ordered by his Cross Cut Sawyer Doctor Assessment & Plan (05/31/2021 2:00 PM EST): The Pt continues to deal with bilateral foot pain and needs to get a pair of Diabetic shoes with specification ordered by his Cross Cut Sawyer Doctor and will increase Gabapentin from 400 mg PO BID to 800 PO BID Assessment & Plan (01/04/2021 10:02 AM EDT): - recently seen in mid-December by Podiatry- note reviewed Assessment & Plan (10/14/2020 9:29 AM EDT): The Pt continues to deal with bilateral foot pain and needs to get a pair of Diabetic shoes with specification ordered by his Cross Cut Sawyer Doctor see below: 08/26/2020 Podiatry Note: Bilateral [...] Also using his neuropathic compounding formula from [employer] as an adjunctive therapy and likes it [...] is working with his Diabetic Specialist at [facility] and has an appointment next week, will increase his Gababentin to 800 mg PO TID and assess effectiveness in one month Assessment & Plan (02/07/2019 6:48 AM EDT): Pt needs a Podiatry appointment due to toe nails need to be cut and Pt needs establish care with a Cross Cut Sawyer for his annual diabetic foot care Diabetic eye exam 02/07/2019 Assessment & Plan (06/24/2022 9:29 AM EST): The Pt stated today that he saw his Eye Doctor, unable to see event in [facility] Assessment & Plan (09/18/2020 6:10 PM EDT): Pt has complaints of vision changes and he blew a blood vessel on his sclera, 3 years ago the Pt would see his Retina Doctor who did a lazer every 6 month, Pt needs a retinal eye referral 09/18/2020 Jeovanny Lynn: I put a referral in for the Pt and lately the [facility] has not been given dates for appointments [...] is in need of seeing eye doctor [facility]. Patient can be reached at [phone]. Ms. Rosales can be reached at the same number [phone]. Thank you Deep Assessment & Plan (05/28/2020 [...] 2019, the Pt needs to call the [facility] [address] [phone] Assessment & Plan (10/14/2020 2:13 PM EDT): [...] (01/04/2019 4:02 PM EDT): Pt needs a Eritrean speaking Nurse to help him manage his [...] -Pt will be called biweekly by the [facility] Nurse to review his FBS finger [...] medications -He has been following with the [facility] team and reports taking all of [...] decided to move his family back to [facility] due to being closer to family and [...] billing issues. He also was supposed to cloth picker a Dexa scanner/sensor, but he was [...] (DEXCOM G6 SENSOR) device and scanner Asked Study Abroad Coordinator to schedule a 1/2 hour Nurse visit [...] 200-300 average, checks ACHS -Pt has his [facility] appt on 04/21/2022 at 11:30 AM [...] Pt will continues to go to his [facility] appointments to review his Dexcom G6 numbers and make appropriate medication changes -If all that happens then the Pt can also scan before each meal, switch from taking 30 units of prandial insulin to start a Sliding Scale -Will leave note with Pt's Blend Plant Operator that the Pt needs to have Provider use a Courtesy Driver due to his poor Vietnamese skills -The Pt has received the Dexcom G6 new account interviewer and scanner but still does not know [...] Pt will continues to go to his [facility] appointments to review his Dexcom G6 [...] EDT): -Met with Pt and with our [facility] RN who was able to translate the [...] 190u??bid 2.Novolog 30??before meals + supplementary sliding [id number]-->4u, 200-249-->6u,??250-299-->8u, 300-349-->10u, >350-->12u 3.continue with ??trulicity 4.5 mg weekly, jardiance 25 mg daily and metformin 1000 mg bid 4.contact us in 1 week to report BG 5.Check BS 4X/day. Keep organized log and bring it next time.??Call [facility] for use of Dexcom CGM 6.Hypoglycemia management:??Carry [...] yes ?? Recommendations: #Diabetes: 1. Continue with [id number] 190u bid 2.Novolog 30 before meals + supplementary sliding scale ?150-199-->??4??units ?200-249-->??6??units ?250-299-->??8??units ?300-349-->??10units ?>350-->?12 3.continue with trulicity 4.5 mg weekly, jardiance 25 mg daily and metformin 1000 mg bid 4.contact us in 1 week to report BG 5.Check BS 4X/day. Keep organized log and bring it next time. Call [employer] [facility] for use of Dexcom CGM 6.Hypoglycemia management: [...] his painful foot issues -Will talk with [facility] Nurse about the Pt and support systems may not be compliant with taking meds and Insulin on a regular basis -Will work on bring the Pt's A1C down, it has been in the 's for the past year and Pt not wanting to see [facility] or [facility] Diabetic Specialist -Will have to set up [...] the Bariatric Doctor for weight loss -Used Courtesy Driver # [id number] -Pt wished he could get his diabetic care restarted at the [facility] -Pt does not want to go to [facility] Diabetic Clinic or the [facility] clinic due to not feeling comfortable [...] Pt needs to be rescheduled with our [facility] Diabetic Clinic with Zena Hines PA, the Pt did not like dealing with [facility] due to not feeling comfortable with the [facility] Providers and has had missed multiple appointments The Pt continues to deal with an elevated A1C, Pt wished he could get his diabetic care restarted at the [facility], will refer today ?? Results for [...] (10/03/2021 11:53 AM EDT): 09/30/21 10:41 AM Polly Hightower RN Message from Ryanne Ocasio MD sent at 09/30/2021 Regarding: RE: reschedule archivist nonprofit foundation appointment I think this is his 3rd [...] Ocasio MD at the Diabetes Center at [address] [place] [address], Pt wished he could get his diabetic care restarted at the [facility], Pt advised to go to his [...] LDL 90 01/25/2021 MALCRR 3,278 (H) 09/16/2019 Outpatient/CONTINUITY CLERK meds BLOOD GLUCOSE METER (R[employer] My Vacation Home USAUCH VERIO FLEX METER) device dulaglutide (TRULICITY) 4.5 mg/0.5 mL PnIj flash glucose (FREESTYLE ORTEGA 14 DAY) scanning reader FREESTYLE ORTEAG 14 DAY sensor kit insulin aspart (NOVOLOG FLEXPEN INSULIN) 100 unit/mL (3 mL) pen insulin regular human CONCENTRATED 500 units/mL (HUMULIN R U-500, CONC, KWIKPEN) injection pen JARDIANCE 25 mg tablet metFORMIN (GLUCOPHAGE) 1000 mg tablet - continues to see [facility] - recent finger stick readings 350, no symptoms of hyperglycemia - discussed with patient taking medications as prescribed as well as changing diet - recommended to reduce carb intake and simple carbs throughout the day and night and see if fasting glucose improved in morning - plans to see [facility] clinic soon Assessment & Plan (04/23/2021 10:36 AM EST): The Pt continues to work with his [facility] Diabetic Specialist and stated that his Finger sticks range between 98-160, Pt needs to get additional labs to assess kidney fx and his diabetes Assessment & Plan (01/08/2021 1:21 PM EDT): The Pt continues to deal with elevated A1C and sees his Blend Plant Operator on a regular basis Results for DARREL [...] and has a f/u appointment with his Blend Plant Operator on 09/29/2020 08/27/2020 Endocrine referral: Assessment and [...] his blood sugars. Could also consider insulin diesel tractor operator like pioglitazone at low dose. ?? Discussed [...] Krystle Santos RN Spoke with pharmacist at [place], states if PCP will send scripts for [...] between 7 or 8 and talked through drug abuse treatment specialist 3362 that the Pt has to have [...] to 110 and send message to his product support consultant Isha Carmen APRN??with [facility] Assessment & Plan (05/28/2020 3:01 [...] to 105 and send message to his product support consultant Isha Carmen APRN with [facility] ?? Assessment & Plan (04/08/2020 [...] the care of Isha Carmen APRN with [facility] and was last prescribed insulin regular human CONCENTRATED 500 units/mL (HUMULIN R U-500, CONC, JUDITHIKPEN) injection pen Inject 85 Units under the skin 2 (two) times daily before breakfast and dinner, to day the Pt will increase his insulin from 85 u to 90 and f/u with Pt in a week and inform Isah Carmen APRN of situation Assessment & Plan [...] - 64 pg/mL 64.2 74 (H) Vitamin S07-Olimzmn Latest Ref Range: 20 - 50 ng/mL [...] Diabetic care will be transferred over to [facility] and he has the following [...] like to speak with his pcp first [phone] (italian speaking) Assessment & Plan (11/13/2019 7:10 PM [...] - 22 (calc) 23 (H) eGFR (NON -Tongan) Latest Ref Range: > OR = 60 [...] Pt is currently seeing our Diabetic Specialist STACKER DRIVER at [facility], talking with STACKER DRIVER on phone the Pt has developed an [...] 10, Pt needs to meet with the [facility] Nurse with the goal to bring his [...] will continue to see Diabetic Clinic at [facility] for additional medication adjustments and will see [...] will continue to see Diabetic Clinic at [facility] and re-evaluate Pt care in one month [...] 6-8 weeks to be seen by his sample worker Dr. Newberry. ?? Attending Addendum: I have [...] that he is on this. I contacted [facility] pharmacy and they reported that on 06/28 [...] call back to Fani Heath PharmD at [phone] 08/04/21 Fani Heath PharmD called Pt Called patient for scheduled pharmacist HTN visit. I was not able to reach patient and LVM requesting a call back. [place] [id number] assisted call. Of note, appears patient was [...] Dr. Newberry and should be visible in [facility]. We would like you to please call [...] pain and dyspnea # h/o CVA (NOT [place] -- historical charting error) # Dyslipidemia with [...] pain and dyspnea # h/o CVA (NOT [place] -- historical charting error) # Dyslipidemia with [...] basis by his , will ask our [facility] Nurse to call Pt and verify their [...] basis by his , will ask our [facility] Nurse to call Pt and verify their [...] recent creatinine/potassium from 01/07 stable, recheck in [facility] this week Assessment & Plan (01/04/2021 9:26 [...] in one week to manage HTN, used classified ad taker 7693, Pt denies experiencing any pain or tightness [...] EST): When the Pt was admitted to [facility] for [facility] they had stopped his Lisinopril [...] medication up weekly, spent 35 min with Courtesy Driver 198, will f/u with Pt in one month [...] needs to get all his meds in italian and has an appointment on 02/24/2020 02/24/2020 ??3:40 PM Provider Deep Pruitt APRN [facility] Assessment & Plan (02/22/2020 5:19 AM EDT): I see that Losartan help protect the kidneys from damage due to diabetes, I will discontinue the atenolol and start him at Losartan 25 mg and slowly titrate him up and the Pt needs to get all his meds in italian and has an appointment on 02/24/2020 02/24/2020 ??3:40 PM Provider Deep Pruitt APRN [facility] Assessment & Plan (03/16/2019 6:10 AM [...] following reasons: The patient has a prior [place] or stroke diagnosis Assessment & Plan (12/18/2018 [...] to call Pt with results seen below (Eritrean only please) -And let him know that his UTI results were negative and there is no reason for antibiotics 09/08/2021 PCP Note: Pt c/o burning with urination for the past 2 day, will ask Pt to do a urine culture before prescribing an Antibiotic medication used Eritrean interpretor 0726 09/10/2021 PCP Addendum Note: The Pt has [...] years ago the Pt had colonoscopy at [facility] in [facility] and was told to return in a year for further surveillance because he had several polyps removed, the concern is that the Pt had a CVA x 2 in 2017 and need Neuro clearance and the Neuro referral was put in today Assessment & Plan (11/13/2019 7:05 PM EDT): Pt had a Colonoscopy done in [facility] in [facility] one year ago and was told [...] AM EDT): 01/02/2020 the 49 yo male (Eritrean speaking only) with a BMI of 39.6, last A1C Dec 2019 increased to 13.7, in 2017 the Pt had a right sided stroke (minimal residual speech and walking issues) and is working with our Diabetic STACKER DRIVER Specialist to bring his sugars down, Pt [...] Plan (11/13/2019 7:08 PM EDT): Used a Courtesy Driver [id number] for the entire 25 min visit, Pt [...] with Pt in 1 weeks, used a Courtesy Driver [id number] throughout the visit -10/23/2019 the Pt again [...] with Pt in 2 weeks, used a Courtesy Driver Propio through out the visit Assessment & [...] (H) -Pt will be referred to the [facility] Production Graphic Designer to assess if his current diet is [...] Perla Rice RN message to Deep Pruitt STACKER DRIVER Call was returned to patient and his [...] input from his primary care physician and crawler dragline operator would be helpful. Considerations would include: stopping amlodipine, increasing diuretics, re-assessing labs for kidney function (e.g. is proteinuria worsening), and dietary interventions. Also counseled patient that weight loss would likely be helpful. I think his rn home care can be helpful with managing his midfoot [...] input from his primary care physician and crawler dragline operator would be helpful. Considerations would include: stopping amlodipine, increasing diuretics, re-assessing labs for kidney function (e.g. is proteinuria worsening), and dietary interventions. Also counseled patient that weight loss would likely be helpful. 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 Follow-up: as needed with me ?? Other interventions: recommend keeping the legs elevated when sitting (try to get feet above the level of the heart to get the fluid to come down; also recommend new pair of custom graduated compression stockings - wear daily - please call [facility] for an appointment to be measured for the new stockings so they fit you well. [facility] [address] [place] [address], [place] [address] , PCP Notes: Will stop Amlodipine 5 mg PO QD and start Pt on Spirolactone 25 mg PO QD and assess in 2 weeks if Spirlactatone needs to be increased to 25 mg BID Will fax to [facility] order for Compression stocking and put contact info in AVS for the Pt to call and arrange for sizing CCM: 10 minutes 12/29/2020 Deep Pruitt APRN Assessment & Plan (06/24/2020 3:44 PM EST): 06/13/2020 the Pt had 2 pairs of Knee high compression stockings ordered and sent to [facility] and the Pt has to call [facility] so he can be measured and then pick them up when they arrive Assessment & Plan (06/13/2020 7:10 AM EST): Pt continues to deal with bilateral lower extremity edema will order Compression sleeves today from [facility] today, Put on lower legs during the day and take off at night, and wash and let dry and put on 2nd pair on the following day for Edema, lower extremity R60.0, will send to [facility] today Assessment & Plan (05/26/2020 5:58 [...] in 2 days at his next appointment [facility][id number] CCM: 20 minutes 05/26/2020 Deep [...] MD Department Ambulatory Surgical Specialties - Vascular [facility] [address] ??[place] [address] Assessment & Plan (01/30/2020 4:18 PM EDT): [...] EST): When the Pt was admitted to [facility] for [facility] they had stopped his Lisinopril [...] needs to get all his meds in italian, 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 More than 4 times per year [...] Date Recorded PHQ-2 Total Score 2 02/17/2022 [facility] Occupat [facility] - Occupational Stress [...] your living situation today? I have a [facility] place to live 05/19/2022 Sex and [...] 9:01 AM EDT Screening for prostate cancer [place] PROPHYLAXIS - ADULT Routine 08/10/2021 10:45 AM EDT Encounter for dental exam and cleaning w/o abnormal findings [place] BITEWINGS - FOUR RADIOGRAPHC IMAGES Routine 07/05/2021 10:30 AM EST Encounter for dental examination [place] PERIODIC ORAL EVALUATION EST PT Routine 07/05/2021 10:30 AM EST Encounter for dental examination Oral frictional keratosis Partially edentulous mandible, unspecified edentulism class Secondary dental caries associated with failed or defective dental bahai Dental caries on smooth surface penetrating into [...] Results * (ABNORMAL) POCT HgbA1c, total CPT: 64801 (06/23/2022 4:21 PM EST) Pathologist [facility] Hemoglobin A1C, POC 10.6 4.0 - 6.0 % [facility] Test Lot Number [id number] [facility] Test Lot Exp Date 09/18/22 Date Format: MM/DD/YYYY [facility] Blood specimen (specimen) 06/23/2022 4:21 PM EST Deep Pruitt APRN POINT OF CARE TEST ORDERABL ES Final Result Performing Organization Address City/[facility]/ZIP Co de Phone Number [facility] * (ABNORMAL) LDL cholesterol, direct (03/14/2022 9:17 AM EST) Pathologist [facility] Direct LDL 101(H) <100 mg/dL [facility] [...] Comment Performing Lab: ?Site ID: [id number] ?Name: [facility] [employer] [facility] [employer] ?Address: [address] [place] [address], [place] [address] ?Director: Yadira Bowman M.D. Deep Pruitt APRN LAB BLOOD ORDERABLES Final Result [facility] [address] [place] [address] * (ABNORMAL) Albumin/creatinine panel, urine, random (02/15/2022 2:02 PM EDT) Pathologist [facility] Albumin, Urine, Random 1,885.3 Reference Range Not Established mg/L 02/15/2022 3:42 PM EDT [facility] MEDICINE Creatinine, Urine, Random 60 Reference Range Not Established mg/dL 02/15/2022 3:42 PM EDT [facility] MEDICINE Albumin/Creatin ine Ratio, Urine, Random 3,168.6(H ) <30.0 mg/g Cr 02/15/2022 3:42 PM EDT [facility]ORY MEDICINE Comment: Moderately increased albuminuria (formerly microalbuminuria): ??30-300 mg/g Cr Significantly increased albuminuria (overt albuminuria): ? >300 mg/g Cr Urine Collection / Unknown 02/15/2022 2:02 PM EDT 02/15/2022 2:59 PM EDT Yue Dominguez TRANSITION MGR URINE ORDERABLES Final Res ult [facility] DEPART[facility] OF LABORATORY MEDICINE [address] [place] [address] * PSA, total (Q) (09/09/2021 9:01 AM EDT) Prostate Specific Antigen Total 0.44 < OR = 4.00 ng/mL [facility] Comment: The total PSA value from this assay system is standardized against the WHO standard. The test result will be approximately 20% lower when compared to the equimolar-standardized total PSA (Jana Belden). Comparison of serial PSA results should be [...] Comment Performing Lab: ?Site ID: [id number] ?Name: [facility] ?Address: [address] [place] [address], [place] [address] ?Director: Yadira Bowman M.D. us Deep Pruitt TRANSITION MGR LAB BLOOD ORDERABLES Final Result [facility] [address] * Colonoscopy (09/03/2020 10:16 AM EDT) [facility] Colonoscopy [facility] Patient Name: Darrel Bhardwaj ? Procedure Date: 09/03/2020 10:16 AM ?Date of : 1970 Age: 50 ? Admit Type: Outpatient Gender: Male ?CSN #: [id number] Note Status: Finalized ?Procedure Date no Time: [...] bowel preparation was evaluated using the BBPS ([place] ? Bowel Preparation Scale) with scores of: [...] Procedure Code(s): ?? --- Professional --- ? 55280, Colonoscopy, flexible; with biopsy, single or ? multiple Diagnosis Code(s): ?? --- Professional --- ? Z86.010, Personal history of colonic polyps ? D12.0, Benign neoplasm of cecum CPT copyright 2018 [employer]. All rights reserved. The codes documented in this report are preliminary and upon certified medical records coder review may be revised to meet current [...] In: 10:41:36 AM Scope Out: 10:58:33 AM [facility] 09/03/2020 10:1 6 AM EDT Provider Not In System GI PROCEDURE ORDERABLES F inal Result Performing Organization Address [facility] Co de Phone Number [facility] * Hepatitis C Ab with reflex to HCV PCR (02/06/2020 7:18 AM EDT) Hepatitis C Antibody Negative Negative 02/06/2020 4:21 PM EDT [facility]ORATORY MEDICINE Comment:A negative result do es not exclude HCV infection, since antibodies are not detectable for 4-8 weeks after initial infection, or may not develop in compromised hosts. In high-risk individuals, repeat antibody testing in 2 months and/or HCV RNA PCR should be considered. Blood Venipuncture / Unknown 02/06/2020 7:18 AM EDT 02/06/2020 8:06 AM EDT Jordyn Hills TRANSITION MGR LAB BLOOD ORDERABLES Fauzia l Result Performing Organization Address [facility] de Phone Number [facility] DEPARTMENT OF LABORATORY MEDICINE [address] [place] [address] * HIV 1/2 ag/ab, w/reflexes (Q) (12/10/2018 [...] ?? For additional information please refer to http://education.[employer].[place]/faq/AAD744 (This link is being provided for informational/ educational purposes only.) The performance of this assay has not been clinically validated in patients less than 2 years old. Blood 12/10/2018 10:3 2 AM EDT 12/10/2018 10:32 AM EDT Carlos Eduardo Joyner MD LAB BLOOD ORDERABLES Fi nal Result [facility] [address] [place] [address] from Last 3 Months or Most Recently Relevant to Health Maintenance Insurance [place] Advance Directives * Full ACLS (Latest Code Status on File) Date Activated Date Inactivated Comments 02/04/2020 9:46 PM 02/07/2020 8:23 PM Question Answer Comments With Whom was the Code Status Discussed? Patient Care Teams Top Lifter Relationship Specialty Start Date End Date Deep Pruitt APRN PCP - General 05/22/19
--- OUTSIDE RECORDS SUMMARY | 2024-06-11 12:45 | XMS_ITS | Encounter Summary ---
Author Organization [facility] [employer] and [facility] Address [address] [place] [phone] Care Team Providers Care Negative Cleaner Name Role Phone Deep Pruitt APRN Primary Care Provider Reason for Visit * Reason Onset Date Comments Medication Refill 09/30/2021 Encounter Details Date Type Department Care Team (Late st Contact Info) Description 09/30/2021 Refill [facility] at [address] [id number] [facility] [address] [place] [address] Kaity Harris, MULE DEVELOPER [address] [place] [phone] Medication Refill Social History Tobacco Use Types [...] often do you attend chur ch or shinto services? Never 01/03/2020 Do you belong to [...] Date Recorded PHQ-2 Total Score 5 09/14/2021 [facility] - Occupational Stress Questionnaire Answer Date [...] documented as of this encounter Care Teams Negative Cleaner Relationship Specialty Start Date End Date Deep Pruitt APRN PCP - General 05/22/19 documented as of this encounter
--- OUTSIDE RECORDS SUMMARY | 2024-06-11 12:45 | XMS_ITS | Encounter Summary ---
Author Organization [facility] Address [address] [place] [address] Care Team Providers Care Insurance Sales Specialist Name Role Phone Deep Pruitt APRN Primary Care Provider Reason for Visit * Reason Comments Medication Refill Encounter Details Date Type Department Care Team ([facility] st Contact Info) Description 09/16/2021 Refill [facility] [address] [place] [address] Deep Pruitt APRN [address] [place] [phone] Medication Refill Social History Tobacco Use [...] often do you attend chur ch or confucianism services? Never 01/03/2020 Do you belong to [...] as of this encounter Visit Diagnoses Diagnosis Vitamin D deficiency Unspecified vitamin D deficiency 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 Slow transit constipation Left upper quadrant pain Abdominal pain, left upper quadrant documented in this encounter Additional Health Concerns Infection Onset Date Last Indicated Resolved Time COVID-19 09/29/2021 09/29/2021 10/19/2021 7:19 PM EDT Assessment Noted Time PHQ-9 Depression Total Score: 7 09/15/19 22 10:31 AM EDT documented as of this encounter Care Teams Insurance Sales Specialist Relationship Specialty Start Date End Date Deep Pruitt APRN PCP - General 05/22/19 documented as of this encounter
--- OUTSIDE RECORDS SUMMARY | 2024-06-11 12:45 | XMS_ITS | Encounter Summary ---
Author Organization [facility] and [facility] Address [address] [place] [phone] Care Team Providers Care Contour Grinder Name Role Phone Deep Pruitt APRN Primary Care Provider Encounter Details Date Type Department Care Team (Latest Contact Info) Description 09/09/2021 Transcribed Orders [facility] [address] [place] [address] Deep Pruitt APRN [address] [place] [address] Encounter for routine screening for [...] Total Score 2 09/08/2021 [facility] - Occupational Stress Questionnaire Answer Date Recorded [...] Orde r Schedule TSH w/reflex to FT4 ([facility] LMW Q Y[facility]) Lab Routine Encounter for [...] health care facility TSH W/REFLEX TO FT4 ([facility] LMW Q YH) Routine 09/09/2021 12:05 PM [...] prostate Routine general medical examination at a [facility] facility ALBUMIN/CREATININE PANEL, URINE, RANDOM Routine 09/09/2021 11:01 AM EDT Encounter for routine screening for malformation using ultrasonics Special screening for malignant neoplasm of prostate Routine general medical examination at a [facility] facility CBC WITH AUTO DIFFERENTIAL Routine 09/09/2021 10:58 AM EDT Encounter for routine screening for malformation using ultrasonics Special screening for malignant neoplasm of prostate Routine general medical examination at a [facility] facility CBC AND DIFFERENTIAL Routine 09/09/2021 10:58 AM EDT Encounter for routine screening for malformation using ultrasonics Special screening for malignant neoplasm of prostate Routine general medical examination at a [facility] facility HEMOGLOBIN A1C Routine 09/09/2021 10:58 AM EDT Encounter for routine screening for malformation using ultrasonics Special screening for malignant neoplasm of prostate Routine general medical examination at a health care facility documented in this encounter Results * PSA, total and free (09/09/2021 12:05 PM EDT) Prostate Specific Antigen, Total (YH) 0.578 0.000 - 3.900 ng/mL 09/13/2021 1:44 PM EDT [facility] DEPARTMENT OF LABORATORY MEDICINE Prostate Specific Antigen, Free (YH) 0.28 0.00 - 3.90 ng/mL 09/13/2021 1:44 PM EDT [facility] DEPARTMENT OF LABORATORY MEDICINE Comment:Prostate Specific An tigen, Free Percentage can not be calculated. PSA, Total value out of appropriate range. Blood Venipuncture / Unknown 09/09/2021 12:05 PM EDT 09/13/2021 10:48 AM EDT Narrative [facility] DEPARTMENT OF LABORATORY MEDICINE - 09/13/2021 [...] in the 2-4 ng/mL range. Deep Pruitt [facility] LAB BLOOD ORDERABLES Final Result Performing Organization Address City/State/[facility] Co de Phone Number [facility] DEPARTMENT OF LABORATORY MEDICINE [address] [place] [address] * (ABNORMAL) Comprehensive metabolic panel (09/09/2021 12:05 PM EDT) Sodium 140 136 - 144 mmol/L 09/09/2021 2:42 PM EDT [facility] Potassium 4.9 3.3 - 5.3 mmol/L 09/09/2021 2:42 PM EDT [facility] Chloride 101 98 - 107 mmol/L 09/09/2021 2:42 PM EDT [facility] CO2 27 20 - 30 mmol/L 09/09/2021 2:42 PM EDT [facility] Anion Gap 12 7 - 17 09/09/2021 2:42 PM EDT [facility] Glucose 148(H) 70 - 100 mg/dL 09/09/2021 2:42 PM EDT [facility] BUN 31(H) 6 - 20 mg/dL 09/09/2021 2:42 PM EDT [facility] Creatinine 1.40(H) 0.40 - 1.30 mg/dL 09/09/2021 2:42 PM EDT [facility] Calcium 9.5 8.8 - 10.2 mg/dL 09/09/2021 2:42 PM T [facility] BUN/Creatinine Ratio 22.1 8.0 - 23.0 0509/2021 2:42 PM EDT [facility] Total Protein 6.4(L) 6.6 - 8.7 g/dL 09/09/2021 2:42 PM EDT [facility] Albumin 3.6 3.6 - 4.9 g/dL 09/09/2021 2:42 PM T [facility] Total Bilirubin 0.2 <=1.2 mg/dL 09/09/2021 2:42 PM T [facility] Alkaline Phosphatase 135(H) 9 - 122 U/L 09/09/2021 2:42 PM T [facility] Alanine Aminotransferase (ALT) 40 9 - 59 U/L 09/09/2021 2:42 PM T [facility] Comment:Calcium dobesilate c an cause artificially low ALT results at therapeutic concentrations Aspartate Aminotransferase (AST) 33 10 - 35 U/L 09/09/2021 2:42 PM T [facility] Globulin 2.8 2.3 - 3.5 g/dL 09/09/2021 2:42 PM T [facility] A/G Ratio 1.3 1.0 - 2.2 09/09/2021 2:42 PM T [facility] AST/ALT Ratio 0.8 See Comment 09/09/2021 2:42 PM T [facility] Comment: Adult with mild elevations of [...] mL/min/1.7 3m2 09/09/2021 2:42 PM EDT [facility] Comment: Values under 60mL/min/1.73m2 may indicate CKD if noted for ?? more than 3 months. eGFR is only valid if creatinine is at steady state. eGFR (NON -Bhutanese) 53 >60 mL/min/1.7 3m2 09/09/2021 2:42 PM EDT [facility] Comment: Values under 60mL/min/1.73m2 may indicate CKD if noted for ?? more than 3 months. eGFR is only valid if creatinine is at steady state. Blood Venipuncture / Unknown 09/09/2021 12:05 PM EDT 09/09/2021 12:05 PM EDT Deep Pruitt [facility] LAB BLOOD ORDERABLES Final Result Performing Organization Address City/[facility]/ZIP Co de Phone Number [facility] [address] [place] [address] * TSH w/reflex to FT4 ( GH LMW Q YH) (09/09/2021 12:05 PM EDT) Thyroid Stimulating Hormone 3.640 See Comment ??IU/mL 09/09/2021 2:42 PM EDT [facility] Comment: Male & Non- Females: 0.270-4.200 ??IU/mL 1st Trimester: 0.110-3.480 ??IU/mL 2nd Trimester: 0.320-3.850 ??IU/mL Blood Venipuncture / Unknown 09/09/2021 12:05 PM EDT 09/09/2021 12:05 PM EDT Deep Pruitt [facility] LAB BLOOD ORDERABLES Final Result Performing Organization Address City/[facility]/ZIP Co de Phone Number [facility] [address] [place] [address] * LDL cholesterol, direct (09/09/2021 12:05 PM EDT) LDL Direct 63 See Comment mg/dL 09/09/2021 2:41 PM EDT [facility] Comment: LDL Cholesterol (mg/dL) ?Adults (>=18 years) ?Children (<18 years) Desirable ?<100 ? <110 Above Desirable ?100-129 ?Not Established Borderline-High ?130-159 ?110- 129 High ? 160-189 ?>=130 Very High? >=190 ?Not Established Blood Venipuncture / Unknown 09/09/2021 12:05 PM EDT 09/09/2021 12:05 PM EDT us Deep Pruitt APRN LAB BLOOD ORDERABLES Final Result Performing Organization Address [facility]/ZIP Co de Phone Number [facility] [address] [place] [phone] [place] [address] * (ABNORMAL) Albumin/creatinine panel, urine, random (09/09/2021 11:01 AM EDT) Albumin, Urine, Random 1,616.3 Reference Range Not Established mg/L 09/09/2021 2:52 PM EDT [facility] Creatinine, Urine, Random 35 Reference Range Not Established mg/dL 09/09/2021 2:52 PM EDT [facility] Albumin/Creatin ine Ratio, Urine, Random 4,684.9(H ) <30.0 mg/g Cr 09/09/2021 2:52 PM EDT [facility] Comment: High albuminuria (formerly microalbuminuria): ??30-300 mg/g Cr Very high albuminuria (overt albuminuria): ? >300 mg/g Cr Urine Collection / Unknown 09/09/2021 11:01 AM EDT 09/09/2021 11:01 AM EDT Deep Pruitt APRN URINE ORDERABLES Final Resu lt Performing Organization Address [facility] Co de Phone Number [address] [id number] [phone] * (ABNORMAL) CBC auto differential (09/09/2021 10:58 AM EDT) WBC 13.5(H) 4.0 - 11.0 x1000/??L 09/09/2021 2:16 PM EDT [facility] RBC 5.05 4.00 - 6.00 M/??L 09/09/2021 2:16 PM EDT [facility] Hemoglobin 13.9 13.2 - 17.1 g/dL 09/09/2021 2:16 PM EDT [facility] Hematocrit 46.10 38.50 - 50.00 % 09/09/2021 2:16 PM EDT [facility] MCV 91.3 80.0 - 100.0 fL 09/09/2021 2:16 PM EDT [facility] MCH 27.5 27.0 - 33.0 pg 09/09/2021 2:16 PM EDT [facility] MCHC 30.2(L) 31.0 - 36.0 g/dL 09/09/2021 2:16 PM EDT [facility] RDW-CV 15.1(H) 11.0 - 15.0 % 09/09/2021 2:16 PM EDT [facility] Platelets 298 150 - 420 x1000/??L 09/09/2021 2:16 PM EDT [facility] MPV 13.0(H) 8.0 - 12.0 fL 09/09/2021 2:16 PM EDT [facility] Neutrophils 63.6 39.0 - 72.0 % 09/09/2021 2:16 PM EDT [facility] Lymphocytes 22.5 17.0 - 50.0 % 09/09/2021 2:16 PM EDT [facility] Monocytes 9.2 4.0 - 12.0 % 09/09/2021 2:16 PM EDT [facility] Eosinophils 3.6 0.0 - 5.0 % 09/09/2021 2:16 PM EDT [facility] Basophil 0.4 0.0 - 1.4 % 09/09/2021 2:16 PM EDT [facility] Immature Granulocytes 0.7 0.0 - 1.0 % 09/09/2021 2:16 PM EDT [facility] nRBC 0.0 0.0 - 1.0 % 09/09/2021 2:16 PM EDT [facility] ANC(Abs Neutrophil Count) 8.60(H) 2.00 - 7.60 x 1000/??L 09/09/2021 2:16 PM EDT [facility] Absolute Lymphocyte Count 3.05 0.60 - 3.70 x 1000/??L 09/09/2021 2:16 PM EDT [facility] Monocyte Absolute Count 1.24(H) 0.00 - 1.00 x 1000/??L 09/09/2021 2:16 PM EDT [facility] Eosinophil Absolute Count 0.49 0.00 - 1.00 x 1000/??L 09/09/2021 2:16 PM EDT [facility] Basophil Absolute Count 0.06 0.00 - 1.00 x 1000/??L 09/09/2021 2:16 PM EDT [facility] Absolute Immature Granulocyte Count 0.10 0.00 - 0.30 x 1000/??L 09/09/2021 2:16 PM EDT [facility] Absolute nRBC 0.00 0.00 - 1.00 x 1000/??L 09/09/2021 2:16 PM EDT [facility] Blood Venipuncture / Unknown 09/09/2021 10:58 AM EDT 09/09/2021 10:58 AM EDT Deep Pruitt APRN LAB BLOOD ORDERABLES Final Result [facility] [address] [place] [address] * (ABNORMAL) Hemoglobin A1c (09/09/2021 10:58 AM EDT) Hemoglobin A1c 11.5(H) 4.0 - 5.6 % 09/10/2021 6:36 PM EDT [facility]PART[facility] OF [facility]ORATORY MEDICINE Comment: Hemoglobin [...] mg/dL 283 mg/dL 09/10/2021 6:36 PM EDT [facility]PART[facility] OF [facility]ORATORY MEDICINE Comment: Estimated average glucose (eAG) is a calculated value designed to estimate ??the expected average blood glucose level throughout the day from a single ??measurement of ??glycated hemoglobin A1C (HbA1c) and follows the calculation proposed by the [place] [employer] (Diabetes Care 31: 1-6, 2008). It may have less accuracy in children, women and patients with certain erythrocyte disorders. Blood Venipuncture / Unknown 09/09/2021 10:58 AM EDT 09/09/2021 10:58 AM EDT Deep Pruitt APRN LAB BLOOD ORDERABLES Final Result [facility] DEPARTMENT OF LABORATORY MEDICINE [address] [place] [address] documented in this encounter Visit Diagnoses Diagnosis [...] documented as of this encounter Care Teams Contour Grinder Relationship Specialty Start Date End Date Deep Pruitt APRN PCP - General 05/22/19 documented as of this encounter
--- OUTSIDE RECORDS SUMMARY | 2024-06-11 12:45 | XMS_ITS | Encounter Summary ---
Author Organization [facility] [employer] [facility] and [facility] Address [address] [place] [phone] Care Team Providers Care Pick Out Hand Name Role Phone Deep Pruitt APRN Primary Care Provider Reason for Visit * Reason Onset Date Comments Medication Refill 09/30/2021 Encounter Details Date Type Department Care Team (Late st Contact Info) Description 09/30/2021 Refill [facility] [address] [facility] [address] [facility] 2nd [place] [address] Rubin Valderrama, [facility] [address] [place] [phone] Medication Refill Social History Tobacco Use Types [...] Date Recorded PHQ-2 Total Score 5 09/14/2021 [facility] ional [facility] - Occupational Stress Questionnaire Answer Date Recorded [...] today, but unknown at home. Defer to [facility] pharmacy team for antihypertensive management. Current regimen [...] documented as of this encounter Care Teams Pick Out Hand Relationship Specialty Start Date End Date Deep Pruitt APRN PCP - General 05/22/19 documented as of this encounter
--- OUTSIDE RECORDS SUMMARY | 2024-06-11 12:45 | XMS_ITS | Encounter Summary ---
Author Organization [facility] [employer] [facility] and [facility] Address [address] [place] [phone] Care Team Providers Care Touch Up Painter Hand Name Role Phone Deep Pruitt APRN Primary Care Provider Encounter Details Date Type Department Care Team (Latest Contact Info) Description 09/13/2021 Transcribed Orders [facility] [address] [place] [address] Deep Pruitt APRN [address] [place] [address] Encounter for routine screening for [...] - 3.900 ng/mL 09/13/2021 1:44 PM EDT [facility] DEPARTMENT OF LABORATORY MEDICINE Prostate Specific Antigen, Free (YH) 0.28 0.00 - 3.90 ng/mL 09/13/2021 1:44 PM EDT [facility] DEPARTMENT OF LABORATORY MEDICINE Comment:Prostate Specific An tigen, Free Percentage can not be calculated. PSA, Total value out of appropriate range. Blood Venipuncture / Unknown 09/09/2021 12:05 PM EDT 09/13/2021 10:48 AM EDT Narrative [facility] DEPARTMENT OF LABORATORY MEDICINE - 09/13/2021 1:44 [...] Pruitt APRN LAB BLOOD ORDERABLES Final Result [facility] DEPARTMENT OF LABORATORY MEDICINE [address] [place] [address] documented in this encounter Visit Diagnoses Diagnosis [...] documented as of this encounter Care Teams Touch Up Painter Hand Relationship Specialty Start Date End Date Deep Pruitt APRN PCP - General 05/22/19 documented as of this encounter
--- OUTSIDE RECORDS SUMMARY | 2024-06-11 12:45 | XMS_ITS | Encounter Summary ---
Author Organization [facility] [facility] and [facility] Address [address] [place] [address] Care Team Providers Care Filament Welder Name Role Phone Deep Pruitt APRN Primary Care Provider [phone] Reason for Visit * Reason Onset Date Comments Medication Refill 10/12/2021 Encounter Details Date Type Department Care Team (Late st Contact Info) Description 10/12/2021 Refill [facility] at [address] [place] [address] Anahi Rossi, JOHN [address] [place] [address] Medication Refill Social History Tobacco [...] Date Recorded PHQ-2 Total Score 0 10/12/2021 [facility] of Occupat ional [facility] - Occupational Stress Questionnaire Answer [...] documented as of this encounter Care Teams Filament Welder Relationship Specialty Start Date End Date Deep Pruitt APRN PCP - General 05/22/19 documented as of this encounter
--- OUTSIDE RECORDS SUMMARY | 2024-06-11 12:45 | XMS_ITS | Encounter Summary ---
Author Organization [facility] [employer] [facility] and [facility] Address [address] [place] [phone] Care Team Providers Care Building Code Administrator Name Role Phone Deep Pruitt APRN Primary Care Provider Reason for Visit * Reason Onset Date Comments Medication Refill 09/20/2021 Encounter Details Date Type Department Care Team (Late st Contact Info) Description 09/20/2021 Refill [facility] [address] [facility] [address] [facility] 2nd [place] [address] Ricarda Du MD [address] [place] [phone] Medication Refill Social History Tobacco Use Types [...] Date Recorded PHQ-2 Total Score 5 09/14/2021 [facility] of Occupat ional Health [...] as of this encounter Care Teams Building Code Administrator Relationship Specialty Start Date End Date Deep Pruitt APRN PCP - General 05/22/19 documented as of this encounter
--- OUTSIDE RECORDS SUMMARY | 2024-06-11 12:45 | XMS_ITS | Encounter Summary ---
Author Organization [facility] Address [address] [place] [address] Care Team Providers Care Icu Nurse Name Role Phone Deep Pruitt APRN Primary Care Provider Reason for Visit * Reason Comments Medication Refill Encounter Details Date Type Department Care Team ([facility] st Contact Info) Description 10/20/2020 Refill [facility] [address] [place], [place] [phone] Deep Pruitt APRN [address] [place] [address] Medication Refill Social History Tobacco [...] Recorded PHQ-2 Score 2 07/07/2020 [facility] of Occupat ional Health [...] documented as of this encounter Care Teams Icu Nurse Relationship Specialty Start Date End Date Deep Pruitt APRN PCP - General 05/22/19 documented as of this encounter
--- OUTSIDE RECORDS SUMMARY | 2024-06-11 12:45 | XMS_ITS | Encounter Summary ---
Author Organization [facility] Address [address] [place] [address] Care Team Providers Care Box Finisher Name Role Phone Deep Pruitt APRN Primary Care Provider Reason for Visit * Reason Comments Medication Refill Encounter Details Date Type Department Care Team ([facility] st Contact Info) Description 12/29/2020 Refill [facility] [address] [place] [phone] Deep Pruitt APRN [address] [place] [phone] Medication Refill Social History Tobacco Use [...] Date Recorded PHQ-2 Total Score 0 11/18/2020 [facility] of Occupat ional Health - [...] documented as of this encounter Care Teams Box Finisher Relationship Specialty Start Date End Date Deep Pruitt APRN PCP - General 05/22/19 documented as of this encounter
--- OUTSIDE RECORDS SUMMARY | 2024-06-11 12:45 | XMS_ITS | Encounter Summary ---
Author Organization [facility] Address [address] [place] [address] Care Team Providers Care Deputy Sheriff Chief Name Role Phone Deep Pruitt APRN Primary Care Provider Reason for Visit * Reason Comments Medication Refill Encounter Details Date Type Department Care Team ([facility] st Contact Info) Description 11/05/2020 Refill [facility] [address] [place] [address] Deep Pruitt APRN [address] [place] [phone] Medication Refill Social History Tobacco Use [...] Answer Date Recorded PHQ-2 Score 2 07/07/2020 [facility] of Occupat ional [facility] - Occupational Stress Questionnaire Answer [...] as of this encounter Care Teams Deputy Sheriff Chief Relationship Specialty Start Date End Date Deep Pruitt APRN PCP - General 05/22/19 documented as of this encounter
--- OUTSIDE RECORDS SUMMARY | 2024-06-11 12:45 | XMS_ITS | Encounter Summary ---
Author Organization [facility] Address [address] [place] [address] Care Team Providers Care Hplc Chemist Name Role Phone Deep Pruitt JOHN Primary Care Provider Reason for Visit * Reason Onset Date Comments Medication Refill 10/12/2021 Encounter Details Date Type Department Care Team (Late st Contact Info) Description 10/12/2021 Refill [facility] Nutrition at [address] [phone] Angie Mcghee MD [address] [place] [phone] Medication Refill Social History Tobacco Use Types [...] Date Recorded PHQ-2 Total Score 0 10/12/2021 [facility] of Occupat ional Health - Occupational [...] documented as of this encounter Care Teams Hplc Chemist Relationship Specialty Start Date End Date Deep Pruitt APRN PCP - General 05/22/19 documented as of this encounter
--- OUTSIDE RECORDS SUMMARY | 2024-06-11 12:45 | XMS_ITS | Encounter Summary ---
Author Organization [employer] Address [address] [facility] [address] [place] [address] Care Team Providers Care Historic Site Administrator Name Role Phone Katrin Santoyo MD Primary Care Pro vider Edison Vieira MD Unavailable [phone] Joe Devi MD Unavailable [phone] Reason for Visit * Reason Onset Date Comments FYI 05/22/2024 Encounter Details Date Type Department Care Team (Late st Contact Info) Description 05/22/2024 Telephone [facility] [address] [place], [place] [phone] Katrin Santoyo MD [address] [place], [place] [phone] Social History Tobacco Use Types Packs/Day Years [...] PM EST TC placed to Myrtle at [place] who confirmed that while pt was doing [...] - 05/22/2024 2:08 PM EST Tc from [employer] from [employer] calling about a pt taking Physical Therapy at home. Calling to report that pt BP was Elevated (144/110) and that pt has not taken his meds prior to BP reading. documented in this encounter Plan of Treatment Upcoming Encounters Date Type Department Care Team (Late st Contact Info) Description 07/01/2024 11:00 AM EST Office Visit [facility] [address] [place] [phone] documented as of this encounter Goals Goal [...] documented as of this encounter Care Teams Historic Site Administrator Relationship Specialty Start Date End Date Katrin Santoyo MD [address] [place] [phone] PCP - General Internal Medicine 12/13/22 Edison Vieira MD [address] [place] [address] Pulmonary Disease 04/07/24 Joe Devi MD [address] [place] [address] 3rd [place] [address] Gastroenterology 04/07/24 Carito Roche DNP [address] [facility], [address] [place] [address] Nephrology 04/07/24 GTI 04/11/24 documented as of this encounter
--- OUTSIDE RECORDS SUMMARY | 2024-06-11 12:45 | XMS_ITS | Encounter Summary ---
Author Organization [facility] Address [address] [place] [address] Care Team Providers Care Administrative Representative Name Role Phone Deep Pruitt APRN Primary Care Provider Reason for Visit * Reason Comments Medication Problem Encounter Details Date Type Department Care Team ([facility] Contact Info) Description 10/11/2021 Telephone [facility] [address] [place] [address] Deep Pruitt APRN [address] [place] [address] Medication Problem Social History Tobacco [...] Date Recorded PHQ-2 Total Score 0 10/12/2021 [facility] Occupat ional Health [...] 08 of October Spoke to sissy via record cutter #[id number] (patti) patient states she spoke to the [...] if patient medication can be resent to [facility] [place] [facility] [address] . Best contact: [phone] documented in this encounter Plan of Treatment Not on file documented as of this encounter Visit Diagnoses Not on filedocumented in this encounter Additional Health Concerns Infection Onset Date Last Indicated Resolved Time COVID-19 09/29/2021 09/29/2021 10/19/2021 7:19 PM EDT Assessment Noted Time PHQ-9 Depression Total Score: 0 10/08/19 22 1:27 PM EDT documented as of this encounter Care Teams Administrative Representative Relationship Specialty Start Date End Date Deep Pruitt APRN PCP - General 05/22/19 documented as of this encounter
--- OUTSIDE RECORDS SUMMARY | 2024-06-11 12:45 | XMS_ITS | Encounter Summary ---
Author Organization [facility] [employer] and [facility] Address [address] [place] [phone] Care Team Providers Care Teacher Associate Name Role Phone Deep Pruitt APRN Primary Care Provider Reason for Visit * Reason Onset Date Comments Medication Refill 09/22/2021 Encounter Details Date Type Department Care Team (Late st Contact Info) Description 09/22/2021 Refill [facility] [address] [id number] [facility] 2nd [place] [address] Kaity Harris, MATERIALS ENGINEERING TECHNICIAN [address] [place] [phone] Medication Refill Social History Tobacco Use Types [...] any clubs o r organizations such as confucianism groups, unions, fraternal or athletic groups, or [...] Score 5 09/14/2021 [facility] - Occupational Stress Questionnaire Answer Date Recorded [...] documented as of this encounter Care Teams Teacher Associate Relationship Specialty Start Date End Date Deep Pruitt APRN PCP - General 05/22/19 documented as of this encounter
--- OUTSIDE RECORDS SUMMARY | 2024-06-11 12:45 | XMS_ITS | Encounter Summary ---
Author Organization [facility] Address [address] [place] [address] Care Team Providers Care Licensed Mortgage Loan Officer Name Role Phone Deep Pruitt APRN Primary Care Provider [phone] Reason for Visit * Reason Comments Medication Refill Encounter Details Date Type Department Care Team ([facility] st Contact Info) Description 11/24/2020 Telephone [facility] [address] [place] [address] Deep Pruitt APRN [address] [place] [address] Medication Refill Social History Tobacco [...] Date Recorded PHQ-2 Total Score 0 11/18/2020 [facility] of Occupat ional Health [...] trouble keeping up. CCM: 5 minutes 11/24/2020 Eirca Bhardwaj LPN * Telephone Encounter - Poonam Quiroga - 11/24/2020 2:06 PM EDT Sissy called on the behalf of the patient and stated he needs med refills on all of his medication. She also stated she would like a call from the nurse in regards to the quantity of certain medication. Call back number is [phone] (arabic speaking) preferred pharmacy is [facility] [place] [address] [address] documented in this encounter Plan [...] documented as of this encounter Care Teams Licensed Mortgage Loan Officer Relationship Specialty Start Date End Date Deep Pruitt APRN PCP - General 05/22/19 documented as of this encounter
--- OUTSIDE RECORDS SUMMARY | 2024-06-11 12:45 | XMS_ITS | Encounter Summary ---
Author Organization [facility] Address [address] [place] [address] Care Team Providers Care Cement Crusher Operator Name Role Phone Romelia Pruittian Niko LOPEZ Primary Care Provider Reason for Visit * Reason Comments Medication Refill Encounter Details Date Type Department Care Team ([facility] st Contact Info) Description 09/16/2021 Refill [facility] [address] [place] [phone] Carlos Eduardo Joyner MD [address] [place] [phone] Medication Refill Social History Tobacco Use [...] Date Recorded PHQ-2 Total Score 5 09/14/2021 [facility] of Occupat ional Health - Occupational Stress [...] documented as of this encounter Care Teams Cement Crusher Operator Relationship Specialty Start Date End Date Deep Pruitt APRN PCP - General 05/22/19 documented as of this encounter
--- OUTSIDE RECORDS SUMMARY | 2024-06-11 12:45 | XMS_ITS | Encounter Summary ---
Author Organization [facility] Address [address] [place] [address] Care Team Providers Care Photographic Editor Name Role Phone Deep Pruitt APRN Primary Care Provider Encounter Details Date Type Department Care Team ([facility] st Contact Info) Description 10/26/2020 Scanned Document [facility] [address] [place], [place] [phone] Deep Pruitt APRN [address] [place] [address] Social History Tobacco Use Types [...] Answer Date Recorded PHQ-2 Score 2 07/07/2020 [facility] of Occupat ional Health - [...] documented as of this encounter Care Teams Photographic Editor Relationship Specialty Start Date End Date Deep Pruitt APRN PCP - General 05/22/19 documented as of this encounter
--- OUTSIDE RECORDS SUMMARY | 2024-06-11 12:46 | XMS_ITS | Encounter Summary ---
Author Organization [facility] Address [address] [place] [address] Care Team Providers Care Cable Puller Name Role Phone Deep Pruitt APRN Primary Care Provider Reason for Visit * Reason Comments Medication Refill Encounter Details Date Type Department Care Team ([facility] st Contact Info) Description 09/17/2020 Refill [facility] [address] [place] [address] Deep Pruitt APRN [address] [place] [phone] Medication Refill Social History Tobacco Use [...] often do you attend chur ch or hinduism services? Never 01/03/2020 Do you belong to [...] 2 07/07/2020 [facility] of Occupat ional [facility] - Occupational Stress Questionnaire Answer [...] as of this encounter Care Teams Cable Puller Relationship Specialty Start Date End Date Deep Pruitt APRN PCP - General 05/22/19 documented as of this encounter
--- OUTSIDE RECORDS SUMMARY | 2024-06-11 12:46 | XMS_ITS | Encounter Summary ---
Author Organization [facility] Address [address] [place] [address] Care Team Providers Care Tobacco Wrapping Machine Tender Name Role Phone Deep Pruitt APRN Primary Care Provider [phone] Encounter Details Date Type Department Care Team ([facility] st Contact Info) Description 06/21/2022 Scanned Document [facility] [address] [place], [place] [phone] Deep Pruitt APRN [address] [place] [address] Social History Tobacco Use Types [...] you attend chur ch or muslim services? More than 4 times per year [...] Date Recorded PHQ-2 Total Score 2 02/17/2022 [facility] - Occupational Stress Questionnaire Answer Date [...] your living situation today? I have a [facility] place to live 05/19/2022 Sex and [...] documented as of this encounter Care Teams Tobacco Wrapping Machine Tender Relationship Specialty Start Date End Date Deep Pruitt APRN PCP - General 05/22/19 documented as of this encounter
--- OUTSIDE RECORDS SUMMARY | 2024-06-11 12:46 | XMS_ITS | Encounter Summary ---
Author Organization [facility] [employer] and [facility] Address [address] [place] [address] Care Team Providers Care Industrial Manufacturing Technician Name Role Phone Romelia Pruittian Niko LOPEZ Primary Care Provider Encounter Details Date Type Department Care Team (Latest Contact Info) Description 08/10/2021 Transcribed Orders [facility] [address] [place] [address] Taylor Malagon, GYROSCOPIC INSTRUMENT TESTER [address] [place] [address] Stage 3a chronic kidney disease [...] Date Recorded PHQ-2 Total Score 4 07/13/2021 [facility] of Occupat ional Health [...] - 4.5 mg/dL 08/10/2021 10:26 AM EDT [facility] Blood Venipuncture / Unknown 08/10/2021 9:40 AM EDT 08/10/2021 9:56 AM EDT Taylor Malagon APRN LAB BLOOD ORDERABLES Fauzia guzman Result [facility] [address] [place] [address] documented in this encounter Visit Diagnoses Diagnosis Stage 3a chronic kidney disease (CKD) (HC Code)- Primary documented in this encounter Additional Health Concerns Infection Onset Date Last Indicated Resolved Time COVID-19 09/29/2021 09/29/2021 10/19/2021 7:19 PM EDT Assessment Noted Time PHQ-9 Depression Total Score: 11 022 2:28 PM EST documented as of this encounter Care Teams Industrial Manufacturing Technician Relationship Specialty Start Date End Date Deep Pruitt APRN PCP - General 05/22/19 documented as of this encounter
--- OUTSIDE RECORDS SUMMARY | 2024-06-11 12:46 | XMS_ITS | Encounter Summary ---
Author Organization [facility] Address [address] [place] [address] Care Team Providers Care Police Academy Instructor Name Role Phone Romelia Pruittian Niko LOPEZ Primary Care Provider Encounter Details Date Type Department Care Team (Late st Contact Info) Description 08/09/2021 Scanned Document [facility] [address] [place] [address] External, Provider Social History Tobacco Use Types [...] Date Recorded PHQ-2 Total Score 4 07/13/2021 [facility] of Occupat ional [...] documented as of this encounter Care Teams [employer] Instructor Relationship Specialty Start Date End Date Deep Pruitt APRN PCP - General 05/22/19 documented as of this encounter
--- OUTSIDE RECORDS SUMMARY | 2024-06-11 12:46 | XMS_ITS | Encounter Summary ---
Author Organization [facility] [email or web address] and [facility] Address [address] [place] [phone] Care Team Providers Care Business Office Manager Name Role Phone Deep Pruitt APRN Primary Care Provider Encounter Details Date Type Department Care Team (Late st Contact Info) Description 08/05/2021 Orders Only [facility] [address] [place] [address] Carolyn Marin MD [address] [place] [phone] Essential hypertension Social History Tobacco Use [...] Date Recorded PHQ-2 Total Score 4 07/13/2021 [facility] of Occupat ional Health [...] Miscellaneous Notes * Result Encounter Note - Rah Walsh MD - 08/05/2021 12:53 PM EDT [...] documented as of this encounter Care Teams Business Office Manager Relationship Specialty Start Date End Date Deep Pruitt APRN PCP - General 05/22/19 documented as of this encounter
--- OUTSIDE RECORDS SUMMARY | 2024-06-11 12:46 | XMS_ITS | Encounter Summary ---
Author Organization [employer] Address [address] [facility] 7[address] [place] [address] Care Team Providers Care Reproduction Machine Loader Name Role Phone Katrin Santoyo MD Primary Care Pro vider Edison Vieira MD Unavailable [phone] Joe Devi MD Unavailable [phone] Reason for Visit * Reason Onset Date Comments Nurse Triage 05/30/2024 Encounter Details Date Type Department Care Team (Late st Contact Info) Description 05/30/2024 Telephone [facility] [address] [place], [place] [phone] Katrin Santoyo MD [address] [place], [place] [phone] Nurse Triage Social History Tobacco Use Types [...] below from Covering Dr. Antonia Taylor MD [facility] Team [id number] hours ago (4:08 PM) AE Please see note from ronda Suarez RN. Pt should be seen at [facility] for med titration for HTN Call to [facility], offered appt today but pt declines states has conflicting appts. Unableto recheck BP during call as patient states just woke up. Pt agrees to seek [facility] tomorrow for eval. Reviewed parameters to call back if BP >140/90. * Telephone Encounter - Ronda Suarez RN - 05/30/2024 11:09 AM EST Call to [facility] for BP check, spoke with spouse states pt is asleep but [facility] did recheck and was a little lower. Spouse rechecked with this gag writer on the line and BP reading of 160/95. Still elevated. Denies pt having any sx of CP, [place] or dizziness. Pt unable to come in to [facility] today. Advised will forward to a covering [...] for suture removal at that time. Reviewed [facility] operating hours and that wait times vary. [...] acuity questions The caller accepted this outcome. [phone] (Myrtle) documented in this encounter Plan of Treatment Upcoming Encounters Date Type Department Care Team (Late st Contact Info) Description 07/01/2024 11:00 AM EST Office Visit [facility] [address] [place] [address] documented as of this encounter Goals Goal [...] documented as of this encounter Care Teams Reproduction Machine Loader Relationship Specialty Start Date End Date Katrin Santoyo MD [address] [place] [phone] PCP - General Internal Medicine 12/13/22 Edison Vieira MD [address] [place] [address] Pulmonary Disease 04/07/24 Joe Devi MD [address]rd [place] [address] Gastroenterology 04/07/24 Carito Roche DNP [address], [address] [place] [address] Nephrology 04/07/24 [employer] 04/11/24 documented as of this encounter
[2024-06-11 13:16] LABS: Anion Gap 13 (12-20); Blood Urea Nitrogen 36 mg/dL (9-16); Carbon Dioxide 23 mmol/L (22-29); Chloride 109 mmol/L (96-108); Estimated Glomerular Filt Rate 20; Potassium 4.9 mmol/L (3.3-5.1); Sodium 140 mmol/L (135-145)
== END 2024-06-11 11:15 | disposition home or self-care (01) ==
LOC: HO.LAB 11:14
PROVIDERS: PCP Student in an Organized Health Care Education/Training Program; Referring Provider Internal Medicine Nephrology; Visit Provider Internal Medicine Pulmonary Disease
DX: G47.33 Obstructive sleep apnea (adult) (pediatric) (principal); E11.21 Type 2 diabetes mellitus with diabetic nephropathy; J45.909 Unspecified asthma, uncomplicated; R06.09 Other forms of dyspnea
CPT/HCPCS: 36415; 80051; 82565; 84520; 99212

== ENCOUNTER 2024-06-17 12:10 | Outpatient (AMB) | payer OTHER, SELFPAY ==
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
--- OUTSIDE RECORDS SUMMARY | 2024-06-17 13:17 | XMS_ITS | Encounter Summary ---
Author Organization [facility] Address [address] [place] [id number] Care Team Providers Care Reeling Operator Name Role Phone Deep Pruitt JOHN Primary Care Provider Reason for Visit * Reason Comments Medication Refill Encounter Details Date Type Department Care Team (Late st Contact Info) Description 05/06/2021 Refill [facility] Podiatry at [address] [place] [address] [phone] Arben Fountain, [address] [place] [address] Medication Refill Social History Tobacco Use [...] Date Recorded PHQ-2 Total Score 0 04/21/2021 [facility] Stress Questionnaire Answer Date [...] documented as of this encounter Care Teams Reeling Operator Relationship Specialty Start Date End Date Deep Pruitt APRN PCP - General 05/22/19 documented as of this encounter
--- OUTSIDE RECORDS SUMMARY | 2024-06-17 13:17 | XMS_ITS | Encounter Summary ---
Author Organization [facility] Address [address] [place] [address] Care Team Providers Care Vp Strategy Name Role Phone Sonal Deep Niko LOPEZ Primary Care Provider [phone] Reason for Visit * Reason Comments Medication Refill Encounter Details Date Type Department Care Team ([facility] st Contact Info) Description 05/03/2021 Refill [facility] [address] [place] [address] [phone] Aliya Pond, [address] [phone] Medication Refill Social History Tobacco [...] any clubs o r organizations such as worship groups, unions, fraternal or athletic groups, or [...] Date Recorded PHQ-2 Total Score 0 04/21/2021 [facility] - Occupational Stress Questionnaire [...] documented as of this encounter Care Teams Vp Strategy Relationship Specialty Start Date End Date Deep Pruitt APRN PCP - General 05/22/19 documented as of this encounter
--- OUTSIDE RECORDS SUMMARY | 2024-06-17 13:17 | XMS_ITS | Encounter Summary ---
Author Organization [facility] Address [address] [place] [address] Care Team Providers Care Supervisor Airplane Flight Attendant Name Role Phone Sonal Deep Niko LOPEZ Primary Care Provider [phone] Reason for Visit * Reason Comments Medication Refill Encounter Details Date Type Department Care Team ([facility] st Contact Info) Description 04/12/2021 Refill [facility] [address] [place] [address] [phone] Aliya Pond, [address] [phone] Medication Refill Social History Tobacco [...] Date Recorded PHQ-2 Total Score 1 03/24/2021 [facility] - Occupational Stress Questionnaire [...] documented as of this encounter Care Teams Supervisor Airplane Flight Attendant Relationship Specialty Start Date End Date Deep Pruitt APRN PCP - General 05/22/19 documented as of this encounter
--- OUTSIDE RECORDS SUMMARY | 2024-06-17 13:17 | XMS_ITS | Encounter Summary ---
Author Organization [employer] Address [address] [place] [address] Care Team Providers Care Polymerization Engineer Name Role Phone Katrin Santoyo MD Primary Care Pro vider Edison Vieira MD Unavailable [phone] Joe Devi MD Unavailable [phone] Reason for Visit * Reason Onset Date Comments Nurse Triage 06/06/2024 Encounter Details Date Type Department Care Team (Late st Contact Info) Description 06/06/2024 Telephone [facility] [address] [place], [place] [phone] Katrin Santoyo MD [address] [place], [place] [phone] Nurse Triage Social History Tobacco Use Types [...] returned to patient with BLS 'Roger # [id number]. Patient with noted elevated BP from PT [...] caller accepted this outcome. Contact pt at [phone] documented in this encounter Plan of Treatment Upcoming Encounters Date Type Department Care Team (Late st Contact Info) Description 07/02/2024 11:00 AM EST Office Visit [facility] [address] [place] [address] documented as of this encounter Goals Goal [...] documented as of this encounter Care Teams Polymerization Engineer Relationship Specialty Start Date End Date Katrin Santoyo MD [address] [place] [id number] PCP - General Internal Medicine 12/13/22 Edison Vieira MD [address] [place] [address] Pulmonary Disease 04/07/24 Joe Devi MD [address] [facility] 3rd [place] [address] Gastroenterology 04/07/24 Carito Roche, [address], [address] [place] [address] Nephrology 04/07/24 [employer] 04/11/24 documented as of this encounter
--- OUTSIDE RECORDS SUMMARY | 2024-06-17 13:17 | XMS_ITS | Encounter Summary ---
Author Organization [facility] Address [address] [place] [address] Care Team Providers Care Acid Wash Operator Name Role Phone SonalDeep Niko LOPEZ Primary Care Provider Reason for Visit * Reason Comments Medication Refill Encounter Details Date Type Department Care Team (Late st Contact Info) Description 07/03/2020 Refill [facility] Nutrition at [address] [address] Zena Hines PA [address] [place] [phone] Medication Refill Social History Tobacco Use [...] Answer Date Recorded PHQ-2 Score 2 07/07/2020 [facility] [...] for Metformin received. Pt was engaging with [facility] and continues with PCP. Unclear [...] documented as of this encounter Care Teams Acid Wash Operator Relationship Specialty Start Date End Date Deep Puritt APRN PCP - General 05/22/19 documented as of this encounter
--- OUTSIDE RECORDS SUMMARY | 2024-06-17 13:17 | XMS_ITS | Encounter Summary ---
Author Organization [employer] Address [address] [facility] [address] 7[address] [place] [address] Care Team Providers Care Cad Librarian Name Role Phone Katrin Santoyo MD Primary Care Pro vider Edison Vieira MD Unavailable [phone] Joe Devi MD Unavailable [phone] Encounter Details Date Type Department Care Team (Late st Contact Info) Description 06/11/2024 Telephone [facility] [address] [place] [address] Emili Cordero RN Social History Tobacco Use Types Packs/Day Years [...] encounter Miscellaneous Notes * Telephone Encounter - Emili Cordero RN - 06/11/2024 2:44 PM EST TC via kazakh speaking staff member Mattie Valentino, chronic pain group rescheduled for 07/02/24 @ 11am. * Telephone Encounter - Emili Cordero RN - 06/11/2024 2:44 PM EST ----- Message from Moriah Herbert sent at 06/10/2024 10:02 PM EST ----- Hi! I noticed that Mr. Bhardwaj was scheduled for a Monday non-heavy forger group visit in a few weeks. I think someone from call center may have scheduled him by accident. Would it be possible to reschedule for a PROGRAMMING INSTRUCTOR group? Thanks documented in this encounter Plan of Treatment Upcoming Encounters Date Type Department Care Team (Late st Contact Info) Description 07/02/2024 11:00 AM EST Office Visit [facility] [address] [place] [address] documented as of this encounter Goals Goal Patient Goal Type Associated Problems Recent Progress Patient-Stated? Author Blood Pressure < 140/90 Blood Pressure 158/90(2023 10:23 AM EST) No Eve Guzman PharmD Hemoglobin A1c < 7 Result Component 12.5(03/27/20 3:40 PM EST) Eve Merida PharmD documented as of this encounter Visit Diagnoses Not on filedocumented in this encounter Additional Health Concerns Assessment Noted Time PHQ-9 Depression Total Score: 4 10/31/19 10:32 AM EDT documented as of this encounter Care Teams Cad Librarian Relationship Specialty Start Date End Date Katrin Santoyo MD [address] [place] [address] PCP - General Internal Medicine 12/13/22 Edison Vieira MD [address] [place] [address] Pulmonary Disease 04/07/24 Joe Devi MD 11 [facility] 3rd [place] [address] Gastroenterology 04/07/24 Carito Roche DNP 10 [facility], [address] [place] [address] Nephrology 04/07/24 ADstruc 04/11/24 documented as of this encounter
--- OUTSIDE RECORDS SUMMARY | 2024-06-17 13:17 | XMS_ITS | Encounter Summary ---
Author Organization [employer] [facility] Address [address] [place] [address] Care Team Providers Care Safety Glass Installer Name Role Phone SonalDeep Niko LOPEZ Primary Care Provider Reason for Visit * Reason Comments Medication Refill Encounter Details Date Type Department Care Team (Late st Contact Info) Description 05/12/2020 Refill [facility] Nutrition at [address] [address] Zena Hines PA [address] [place] [address] Medication Refill Social History Tobacco [...] Answer Date Recorded PHQ-2 Score 0 03/13/2020 [facility] of Occupat ional [...] Pike Please review pt no longer seeing [facility] Wellness Dept for DM management. Katrin [...] documented as of this encounter Care Teams Safety Glass Installer Relationship Specialty Start Date End Date Deep Pruitt APRN PCP - General 05/22/19 documented as of this encounter
--- OUTSIDE RECORDS SUMMARY | 2024-06-17 13:17 | XMS_ITS | Encounter Summary ---
Author Organization [employer] [facility] Address [address] [place] [address] Care Team Providers Care Pizza Hut Assistant Name Role Phone Deep Pruitt APRN Primary Care Provider Reason for Visit * Reason Comments Medication Refill Encounter Details Date Type Department Care Team ([facility] st Contact Info) Description 06/19/2020 Refill [facility] [address] [place] [address] Deep Pruitt APRN [address] [place] [phone] Medication Refill Social History Tobacco Use [...] often do you attend chur ch or anglican services? Never 01/03/2020 Do you belong to [...] Answer Date Recorded PHQ-2 Score 0 03/13/2020 [facility] of Occupat ional Health - [...] documented as of this encounter Care Teams Pizza Hut Assistant Relationship Specialty Start Date End Date Deep Pruitt APRN PCP - General 05/22/19 documented as of this encounter
--- OUTSIDE RECORDS SUMMARY | 2024-06-17 13:17 | XMS_ITS | Encounter Summary ---
Author Organization [facility] Address [address] [place] [address] Care Team Providers Care Medical Office Representative Name Role Phone Depe Pruitt APRN Primary Care Provider [phone] Reason for Visit * Reason Comments Other Encounter Details Date Type Department Care Team ([facility] Contact Info) Description 05/24/2022 Telephone [facility] [address] [place] [address] Deep Pruitt APRN [address] [place] [phone] Other Social History Tobacco Use Types [...] you attend chur ch or sikhism services? More than 4 times per year [...] Date Recorded PHQ-2 Total Score 2 02/17/2022 [facility] - Occupational Stress Questionnaire Answer Date [...] your living situation today? I have a [facility] place to live 05/19/2022 [...] AM EST Patient best call back number [phone]. Patient has an upcoming appt with his [...] documented as of this encounter Care Teams Medical Office Representative Relationship Specialty Start Date End Date Deep Pruitt APRN PCP - General 05/22/19 documented as of this encounter
--- OUTSIDE RECORDS SUMMARY | 2024-06-17 13:17 | XMS_ITS | Encounter Summary ---
Author Organization [facility] Address [address] [place] [address] Care Team Providers Care Manager Transportation Name Role Phone Deep Pruitt APRN Primary Care Provider Reason for Visit * Reason Comments Other Encounter Details Date Type Department Care Team ([facility] Contact Info) Description 05/19/2020 Telephone [facility] [address] [place] [address] Deep Pruitt APRN [address] [place] [address] Other Social History Tobacco Use [...] Answer Date Recorded PHQ-2 Score 0 03/13/2020 [facility] of Occupat ional [...] to his gout, call back number is [phone] documented in this encounter Plan of Treatment [...] as of this encounter Care Teams Manager Transportation Relationship Specialty Start Date End Date Deep Pruitt APRN PCP - General 05/22/19 documented as of this encounter
--- OUTSIDE RECORDS SUMMARY | 2024-06-17 13:17 | XMS_ITS | Encounter Summary ---
Author Organization [employer] [facility] Address [address] [place] [address] Care Team Providers Care Television Schedule Coordinator Name Role Phone Deep Pruitt APRN Primary Care Provider Reason for Visit * Reason Comments Medication Refill Encounter Details Date Type Department Care Team ([facility] st Contact Info) Description 06/19/2020 Refill [facility] [address] [place] [address] Deep Pruitt APRN [address] [place] [phone] Medication Refill Social History Tobacco Use [...] Answer Date Recorded PHQ-2 Score 0 03/13/2020 [facility] of Occupat ional [...] documented as of this encounter Care Teams Television Schedule Coordinator Relationship Specialty Start Date End Date Deep Pruitt APRN PCP - General 05/22/19 documented as of this encounter
--- OUTSIDE RECORDS SUMMARY | 2024-06-17 13:17 | XMS_ITS | Encounter Summary ---
Author Organization [facility] [facility] Address [address] [place] [address] Care Team Providers Care First Officer And Flight Instructor Name Role Phone Sonal Deep Niko LOPEZ Primary Care Provider [phone] Reason for Visit * Reason Comments Medication Refill Encounter Details Date Type Department Care Team ([facility] st Contact Info) Description 05/05/2021 Refill [facility] [address] [place] [phone] Aliya Pond, [address] [address] Medication Refill Social History Tobacco [...] Date Recorded PHQ-2 Total Score 0 04/21/2021 [facility] - Occupational Stress Questionnaire [...] as of this encounter Care Teams First Officer And Flight Instructor Relationship Specialty Start Date End Date Deep Pruitt APRN PCP - General 05/22/19 documented as of this encounter
--- OUTSIDE RECORDS SUMMARY | 2024-06-17 13:17 | XMS_ITS | Encounter Summary ---
Author Organization [employer] [facility] Address [address] [place] [address] Care Team Providers Care Council Member Name Role Phone Deep Pruitt APRN Primary Care Provider Reason for Visit * Reason Comments Medication Refill Encounter Details Date Type Department Care Team ([facility] st Contact Info) Description 07/10/2020 Refill [facility] [address] [place] [address] Deep Pruitt APRN [address] [place] [phone] Medication Refill Social History Tobacco Use [...] Answer Date Recorded PHQ-2 Score 2 07/07/2020 [facility] of Occupat ional [facility] - Occupational Stress Questionnaire Answer Date [...] documented as of this encounter Care Teams Council Member Relationship Specialty Start Date End Date Deep Pruitt APRN PCP - General 05/22/19 documented as of this encounter
--- OUTSIDE RECORDS SUMMARY | 2024-06-17 13:17 | XMS_ITS | Encounter Summary ---
Author Organization [employer] [facility] Address [address] [place] [address] Care Team Providers Care Burial Needs Salesperson Name Role Phone Deep Pruitt APRN Primary Care Provider Reason for Visit * Reason Comments Medication Refill Encounter Details Date Type Department Care Team ([facility] st Contact Info) Description 06/30/2021 Refill [facility] [address] [place], [place] [phone] Deep Pruitt APRN [address] [place] [address] Medication Refill Social History Tobacco [...] Date Recorded PHQ-2 Total Score 3 05/31/2021 [facility] of Occupat [...] documented as of this encounter Care Teams Burial Needs Salesperson Relationship Specialty Start Date End Date Deep Pruitt APRN PCP - General 05/22/19 documented as of this encounter
--- OUTSIDE RECORDS SUMMARY | 2024-06-17 13:17 | XMS_ITS | Encounter Summary ---
Author Organization [employer] Address [address] [facility] 7t [place] [address] Care Team Providers Care Record Keeper Name Role Phone Katrin Santoyo MD Primary Care Pro vider Edison Vieira MD Unavailable [phone] Joe Devi MD Unavailable [phone] Reason for Visit * Reason Onset Date Comments Error (VOID this visit) 06/05/2024 Encounter Details Date Type Department Care Team ([facility] Contact Info) Description 06/05/2024 Telephone [facility] [address] [place] [address] Gabriela Rea, RN [address] [place] [address] Error (VOID this visit) Social History Tobacco [...] Description 07/02/2024 11:00 AM EST Office Visit [facility] [address] [place] [address] documented as of this encounter Goals Goal [...] documented as of this encounter Care Teams Record Keeper Relationship Specialty Start Date End Date Katrin Santoyo MD [address] [place] [address] PCP - General Internal Medicine 12/13/22 Edison Vieira MD [address] [place] [address] Pulmonary Disease 04/07/24 Joe Devi MD [address] 3rd [place] [address] Gastroenterology 04/07/24 Carito Roche DNP [address], [address] [place] [address] Nephrology 04/07/24 [email or web address] 04/11/24 documented as of this encounter
--- OUTSIDE RECORDS SUMMARY | 2024-06-17 13:17 | XMS_ITS | Encounter Summary ---
Author Organization [employer] [facility] Address [address] [place] [address] Care Team Providers Care Cracker Sprayer Name Role Phone Deep Pruitt APRN Primary Care Provider Reason for Visit * Reason Comments Medication Refill Encounter Details Date Type Department Care Team ([facility] st Contact Info) Description 06/07/2022 Refill [facility] [address] [place], [place] [phone] Deep Pruitt APRN [address] [place] [address] Medication Refill Social History Tobacco [...] attend chur ch or latter day services? More than 4 times per year [...] Date Recorded PHQ-2 Total Score 2 02/17/2022 [facility] of Occupat [...] living situation today? I have a [facility] place to live 05/19/2022 Sex and Gender [...] documented as of this encounter Care Teams Cracker Sprayer Relationship Specialty Start Date End Date Deep Pruitt APRN PCP - General 05/22/19 documented as of this encounter
--- OUTSIDE RECORDS SUMMARY | 2024-06-17 13:17 | XMS_ITS | Encounter Summary ---
Author Organization [facility] Address [address] [place] [address] Care Team Providers Care District Commercial Superintendent Name Role Phone Sonal Deep Niko LOPEZ Primary Care Provider [phone] Reason for Visit * Reason Comments Medication Refill Encounter Details Date Type Department Care Team ([facility] st Contact Info) Description 05/10/2021 Refill [facility] [address] [place] [phone] Aliya Pond, [address] [address] Medication Refill Social History Tobacco [...] Date Recorded PHQ-2 Total Score 0 04/21/2021 [facility] - Occupational Stress Questionnaire [...] documented as of this encounter Care Teams District Commercial Superintendent Relationship Specialty Start Date End Date Deep Pruitt APRN PCP - General 05/22/19 documented as of this encounter
--- OUTSIDE RECORDS SUMMARY | 2024-06-17 13:17 | XMS_ITS | Encounter Summary ---
Author Organization [facility] Address [address] [place] [address] Care Team Providers Care Tubular Products Fabricator Name Role Phone Deep Pruitt APRN Primary Care Provider [phone] Reason for Visit * Reason Comments Medication Refill Encounter Details Date Type Department Care Team (Late st Contact Info) Description 06/19/2020 Refill [facility] [address] [place], [place] [address] Janel Cummins APRN [address] [place] [phone] Medication Refill Social History Tobacco Use Types [...] Answer Date Recorded PHQ-2 Score 0 03/13/2020 [facility] Occupat ional Health - Occupational [...] documented as of this encounter Care Teams Tubular Products Fabricator Relationship Specialty Start Date End Date Deep Pruitt APRN PCP - General 05/22/19 documented as of this encounter
--- OUTSIDE RECORDS SUMMARY | 2024-06-17 13:17 | XMS_ITS | Encounter Summary ---
Author Organization [employer] Address 75 [facility] 7t [place] [address] Care Team Providers Care Record Cutter Name Role Phone Katrin Santoyo MD Primary Care Pro vider Edison Vieira MD Unavailable Joe Devi MD Unavailable [phone] Reason for Visit * Reason Onset Date Comments No Show 06/10/2024 Encounter Details Date Type Department Care Team (Late st Contact Info) Description 06/10/2024 Telephone [facility] [address] [place], [place] [phone] Shirin Albarran MD [address] [place], [place] [phone] No Show Social History Tobacco Use Types [...] Description 07/02/2024 11:00 AM EST Office Visit [facility] [address] [place] [address] documented as of this encounter Goals Goal [...] as of this encounter Care Teams Record Cutter Relationship Specialty Start Date End Date Katrin Santoyo MD [address] [place] [address] PCP - General Internal Medicine 12/13/22 Edison Vieira MD [address] [place] [address] Pulmonary Disease 04/07/24 Joe Devi MD 11 [facility] 3rd [place] [address] Gastroenterology 04/07/24 Carito Roche DNP 10 [facility], [address] [place] [address] Nephrology 04/07/24 [employer] 04/11/24 documented as of this encounter
--- OUTSIDE RECORDS SUMMARY | 2024-06-17 13:17 | XMS_ITS | Encounter Summary ---
Author Organization [facility] Address [address] [place] [address] Care Team Providers Care Bicycle Service Technician Name Role Phone Deep Pruitt APRN Primary Care Provider Reason for Visit * Reason Comments Medication Refill Encounter Details Date Type Department Care Team ([facility] st Contact Info) Description 05/27/2020 Telephone [facility] [address] [place] [address] Deep Pruitt APRN [address] [place] [address] Medication Refill Social History Tobacco [...] Answer Date Recorded PHQ-2 Score 0 03/13/2020 [facility] of Occupat ional Health - [...] medications and request someone calls him at [phone] documented in this encounter Plan of Treatment [...] documented as of this encounter Care Teams Bicycle Service Technician Relationship Specialty Start Date End Date Deep Pruitt APRN PCP - General 05/22/19 documented as of this encounter
--- OUTSIDE RECORDS SUMMARY | 2024-06-17 13:17 | XMS_ITS | Encounter Summary ---
Author Organization [facility] Address [address] [place] [address] Care Team Providers Care Sales Designer Name Role Phone Deep Pruitt APRN Primary Care Provider Reason for Visit * Reason Comments Forms Encounter Details Date Type Department Care Team ([facility] Contact Info) Description 06/16/2020 Telephone [facility] [address] [place] [address] Deep Pruitt APRN [address] [place] [address] Forms Social History Tobacco Use Types [...] Answer Date Recorded PHQ-2 Score 0 03/13/2020 [facility] of Occupat ional Health - [...] update on handicap forms for pt. Call [phone] documented in this encounter Plan of Treatment [...] as of this encounter Care Teams Sales Designer Relationship Specialty Start Date End Date Deep Pruitt APRN PCP - General 05/22/19 documented as of this encounter
--- OUTSIDE RECORDS SUMMARY | 2024-06-17 13:17 | XMS_ITS | Encounter Summary ---
Author Organization [facility] Address [address] [place] [address] Care Team Providers Care Broadcast Program Director Name Role Phone Deep Pruitt APRN Primary Care Provider Encounter Details Date Type Department Care Team ([facility] st Contact Info) Description 06/13/2020 Scanned Document [facility] [address] [place], [place] [phone] Deep Pruitt APRN [address] [place] [address] Social History Tobacco Use Types [...] Answer Date Recorded PHQ-2 Score 0 03/13/2020 [facility] of Occupat ional Health - Occupational [...] documented as of this encounter Care Teams Broadcast Program Director Relationship Specialty Start Date End Date Deep Pruitt APRN PCP - General 05/22/19 documented as of this encounter
--- OUTSIDE RECORDS SUMMARY | 2024-06-17 13:17 | XMS_ITS | Encounter Summary ---
Author Organization [employer] [facility] Address [address] [place] [address] Care Team Providers Care Inspector Bullet Slugs Name Role Phone Deep Pruitt JOHN Primary Care Provider Reason for Visit * Reason Comments Medication Refill Encounter Details Date Type Department Care Team (Late st Contact Info) Description 05/12/[address] [facility] Podiatry at [address] [place] [phone] Arben Fountain, [employer] [address] [place] [address] Medication Refill Social History Tobacco Use [...] Date Recorded PHQ-2 Total Score 0 04/21/2021 [facility] - Occupational Stress Questionnaire Answer Date [...] as of this encounter Care Teams Inspector Bullet Slugs Relationship Specialty Start Date End Date Deep Pruitt APRN PCP - General 05/22/19 documented as of this encounter
--- OUTSIDE RECORDS SUMMARY | 2024-06-17 13:17 | XMS_ITS | Encounter Summary ---
Author Organization [facility] [facility] [facility] Address [address] [place] [address] Care Team Providers Care Administrative Assistant Name Role Phone Deep Pruitt APRN Primary Care Provider Reason for Visit * Reason Comments Medication Refill Encounter Details Date Type Department Care Team ([facility] st Contact Info) Description 05/18/2020 Refill [facility] [address] [place] [address] Deep Pruitt APRN [address] [place] [phone] Medication Refill Social History Tobacco Use [...] you attend chur ch or buddhist services? Never 01/03/2020 Do you belong to [...] Answer Date Recorded PHQ-2 Score 0 03/13/2020 [facility] of Occupat ional Health - Occupational [...] as of this encounter Care Teams Administrative Assistant Relationship Specialty Start Date End Date Deep Pruitt APRN PCP - General 05/22/19 documented as of this encounter
--- OUTSIDE RECORDS SUMMARY | 2024-06-17 13:17 | XMS_ITS | Encounter Summary ---
Author Organization [employer] [facility] Address [address] [place] [address] Care Team Providers Care Aircraft Seat Upholsterer Name Role Phone Deep Pruitt APRN Primary Care Provider Reason for Visit * Reason Comments Medication Refill Encounter Details Date Type Department Care Team ([facility] st Contact Info) Description 07/29/2020 Refill [facility] [address] [place], [place] [phone] Deep Pruitt, JOHN [address] [place] [phone] Medication Refill Social History Tobacco Use [...] Answer Date Recorded PHQ-2 Score 2 07/07/2020 [facility] of Occupat ional [facility] - Occupational Stress Questionnaire Answer Date [...] documented as of this encounter Care Teams Aircraft Seat Upholsterer Relationship Specialty Start Date End Date Deep Pruitt APRN PCP - General 05/22/19 documented as of this encounter
--- OUTSIDE RECORDS SUMMARY | 2024-06-17 13:17 | XMS_ITS | Encounter Summary ---
Author Organization [employer] Address [address] [facility] [address] [facility] [address] 7t [place] [address] Care Team Providers Care Medical Genetics Director Name Role Phone Katrin Santoyo MD Primary Care Pro vider Edison Vieira MD Unavailable [phone] Joe Devi MD Unavailable [phone] Reason for Visit * Reason Comments Med Refill Encounter Details Date Type Department Care Team ([facility] st Contact Info) Description 02/11/2024 Refill [facility] [address] [place] [address] Moriah Herbert FNP [address] [place] [address] Chronic radicular lumbar pain Social History Tobacco [...] Description 07/02/2024 11:00 AM EST Office Visit [facility] [address] [place] [address] documented as of this encounter Goals Goal [...] as of this encounter Care Teams Medical Genetics Director Relationship Specialty Start Date End Date Katrin Santoyo MD [address] [place] [address] PCP - General Internal Medicine 12/13/22 Edison Vieira MD [address] [place] [address] Pulmonary Disease 04/07/24 Joe Devi MD [address] 3rd [place] [address] Gastroenterology 04/07/24 Carito Roche DNP [address], [address] [place] [address] Nephrology 04/07/24 [email or web address] 04/11/24 documented as of this encounter
--- OUTSIDE RECORDS SUMMARY | 2024-06-17 13:17 | XMS_ITS | Encounter Summary ---
Author Organization [employer] Address 75 [facility] 7t [place] [address] Care Team Providers Care Director Global Intelligence Name Role Phone Katrin Santoyo MD Primary Care Pro vider Edison Vieira MD Unavailable [phone] Joe Devi MD Unavailable [phone] Reason for Visit * Reason Onset Date Comments FYI 06/06/2024 Encounter Details Date Type Department Care Team (Late st Contact Info) Description 06/06/2024 Telephone [facility] [address] [place], [place] [phone] Katrin Santoyo MD [address] [place], [place] [phone] FY Social History Tobacco Use Types Packs/Day [...] nursing. If any questions contact Becky at [phone] documented in this encounter Plan of Treatment Upcoming Encounters Date Type Department Care Team (Late st Contact Info) Description 07/02/2024 11:00 AM EST Office Visit [facility] [address] [place] [address] documented as of this encounter Goals Goal Patient Goal Type Associated Problems Recent Progress Patient-Stated? Author Blood Pressure < 140/90 Blood Pressure 158/90(2023 10:23 AM EST) No Piers-GambNimo sheikhsa, PharmD Hemoglobin A1c < 7 Result Component 12.5(03/27/20 3:40 PM EST) No Nemesios-GambEve sheikh, PharmD documented as of this encounter Visit Diagnoses Not on filedocumented in this encounter Additional Health Concerns Assessment Noted Time PHQ-9 Depression Total Score: 4 10/31/19 24 10:32 AM EDT documented as of this encounter Care Teams Director Global Intelligence Relationship Specialty Start Date End Date Katrin Santoyo MD [address] [place] [address] PCP - General Internal Medicine 12/13/22 Edison Vieira MD 5 [place] [address] Pulmonary Disease 04/07/24 Joe Devi MD [address] [place] [address] 3rd [place] [address] Gastroenterology 04/07/24 Carito Roche DNP 10 [facility], [address] [place] [address] Nephrology 04/07/24 [facility] 04/11/24 documented as of this encounter
--- OUTSIDE RECORDS SUMMARY | 2024-06-17 13:17 | XMS_ITS | Encounter Summary ---
Author Organization [facility] and [facility] Address [address] [place] [address] Care Team Providers Care Pumper Gager Apprentice Name Role Phone Deep Pruitt APRN Primary Care Provider Encounter Details Date Type Department Care Team (Late st Contact Info) Description 06/11/[address] [facility] 9 [facility], 2nd floor [facility], [address] [place], [place] [phone] Isha Brown APRN 6 [place] [address] Social History Tobacco Use Types [...] Date Recorded PHQ-2 Total Score 3 05/31/2021 [facility]at ional [facility] - [...] documented as of this encounter Care Teams Pumper Gager Apprentice Relationship Specialty Start Date End Date Deep Pruitt APRN PCP - General 05/22/19 documented as of this encounter
--- OUTSIDE RECORDS SUMMARY | 2024-06-17 13:17 | XMS_ITS | Encounter Summary ---
Author Organization [facility] and [facility] Address [address] [place] [address] Care Team Providers Care White Sugar Syrup Operator Name Role Phone Deep Pruitt APRN Primary Care Provider Reason for Visit * Reason Comments DME Encounter Details Date Type Department Care Team ([facility] st Contact Info) Description 05/04/2022 Documentation Sleep Medicine Program at [address] [place] [address] [phone] Jarad De Leon MD [address] [place] [phone] Social History Tobacco Use Types Packs/Day [...] Date Recorded PHQ-2 Total Score 2 02/17/2022 [facility] of Occupat ional Health - [...] documented as of this encounter Care Teams White Sugar Syrup Operator Relationship Specialty Start Date End Date Deep Pruitt APRN PCP - General 05/22/19 documented as of this encounter
--- OUTSIDE RECORDS SUMMARY | 2024-06-17 13:17 | XMS_ITS | Encounter Summary ---
Author Organization [employer] Address 75 [facility] 7t [place] [address] Care Team Providers Care Neighborhood Service Center Director Name Role Phone Katrin Santoyo MD Primary Care Pro vider Edison Vieira MD Unavailable [phone] Joe Devi MD Unavailable [phone] Reason for Visit * Reason Onset Date Comments Durable Medical Equipment 11/08/2023 Encounter Details Date Type Department Care Team (Late st Contact Info) Description 11/08/2023 Telephone [facility] MEDICINE [address] [place], [place] [phone] Katrin Santoyo MD [address] [place], [place] [phone] Durable Medical Equipment Social History Tobacco Use [...] 11/10/2023 11:01 AM EDT Call placed to [employer] spoke to Zhen who was informed on 10/31/23 we faxed over RX with the qty on it. He reports that what they need is the letter of medical necessity not the Rx. He reports he will fax it to blue team at [phone] and once signed and faxed back it will be all set. Awaiting do cument. * Telephone Encounter - Mauricio Taylor - 11/08/2023 3:57 PM EDT Tc from Tanya at [facility] line calling to report the DME is missing the quantity and the description please sign and refax documented in this encounter Plan of Treatment Upcoming Encounters Date Type Department Care Team (Late st Contact Info) Description 07/02/2024 11:00 AM EST Office Visit [facility] MEDICINE [address] [place] [address] documented as of this encounter Goals Goal [...] documented as of this encounter Care Teams Neighborhood Service Center Director Relationship Specialty Start Date End Date Katrin Santoyo MD [address] [place] [address] PCP - General Internal Medicine 12/13/22 Edison Vieira MD 5 [place] [address] Pulmonary Disease 04/07/24 Joe Devi MD 11 [facility] 3rd [place] [address] Gastroenterology 04/07/24 Carito Roche DNP 10 [facility], [address] [place] [address] Nephrology 04/07/24 [employer] 04/11/24 documented as of this encounter
--- OUTSIDE RECORDS SUMMARY | 2024-06-17 13:17 | XMS_ITS | Encounter Summary ---
Author Organization [employer] [facility] Address [address] [place] [address] Care Team Providers Care Engine Dispatcher Name Role Phone Deep Pruitt APRN Primary Care Provider Reason for Visit * Reason Comments Medication Refill Encounter Details Date Type Department Care Team ([facility] st Contact Info) Description 05/13/2020 Refill [facility] [address] [place], [place] [address] Deep Pruitt APRN [address] [place] [address] Medication Refill Social History Tobacco [...] Date Recorded PHQ-2 Score 0 03/13/2020 [facility] of Occupat ional Health - Occupational Stress [...] as of this encounter Care Teams Engine Dispatcher Relationship Specialty Start Date End Date Deep Pruitt APRN PCP - General 05/22/19 documented as of this encounter
--- OUTSIDE RECORDS SUMMARY | 2024-06-17 13:17 | XMS_ITS | Encounter Summary ---
Author Organization [facility] [facility] and [facility] Address [address] [place] [address] Care Team Providers Care Manufacturing Team Member Name Role Phone Deep Pruitt APRN Primary Care Provider Reason for Visit * Reason Comments DME Encounter Details Date Type Department Care Team (Late st Contact Info) Description 04/11/2022 Documentation Sleep Medicine Program at [address] [place] [address] Jarad De Leon MD [address] [place] [phone] Social History Tobacco Use Types Packs/Day [...] Date Recorded PHQ-2 Total Score 2 02/17/2022 [facility] of Occupat ional Health - Occupational [...] as of this encounter Care Teams Manufacturing Team Member Relationship Specialty Start Date End Date Deep Pruitt APRN PCP - General 05/22/19 documented as of this encounter
--- OUTSIDE RECORDS SUMMARY | 2024-06-17 13:17 | XMS_ITS | Encounter Summary ---
Author Organization [facility] Address [address] [place] [address] Care Team Providers Care Stock Counter Name Role Phone Deep Pruitt APRN Primary Care Provider Encounter Details Date Type Department Care Team ([facility] st Contact Info) Description 06/25/2021 Telephone [facility] [address] [place] [address] Deep Pruitt APRN [address] [place] [address] Social History Tobacco Use Types [...] Date Recorded PHQ-2 Total Score 3 05/31/2021 [facility] of Occupat ional [...] documented as of this encounter Care Teams Stock Counter Relationship Specialty Start Date End Date Deep Pruitt APRN PCP - General 05/22/19 documented as of this encounter
--- OUTSIDE RECORDS SUMMARY | 2024-06-17 13:17 | XMS_ITS | Encounter Summary ---
Author Organization [employer] [facility] Address [address] [place] [address] Care Team Providers Care Director Clinical Data Name Role Phone Deep Pruitt JOHN Primary Care Provider Reason for Visit * Reason Comments Medication Refill Encounter Details Date Type Department Care Team (Late st Contact Info) Description 07/20/2020 Refill [facility] Podiatry at [address] [place] [phone] Arben Fountain, [employer] [address] [place] [address] Medication Refill Social History Tobacco [...] often do you attend chur ch or restorationist services? Never 01/03/2020 Do you belong to [...] [facility]at ional [facility] [...] as of this encounter Care Teams Director Clinical Data Relationship Specialty Start Date End Date Deep Pruitt APRN PCP - General 05/22/19 documented as of this encounter
--- OUTSIDE RECORDS SUMMARY | 2024-06-17 13:18 | XMS_ITS | Encounter Summary ---
Author Organization [employer] [facility] Address [address] [place] [address] Care Team Providers Care Health Worker Name Role Phone Deep Pruitt APRN Primary Care Provider Reason for Visit * Reason Comments Medication Refill Encounter Details Date Type Department Care Team ([facility] st Contact Info) Description 03/10/2021 Refill [facility] [address] [place] [address] Deep Pruitt APRN [address] [place] [phone] Medication Refill Social History Tobacco Use [...] documented as of this encounter Care Teams Health Worker Relationship Specialty Start Date End Date Deep Pruitt APRN PCP - General 05/22/19 documented as of this encounter
--- OUTSIDE RECORDS SUMMARY | 2024-06-17 13:18 | XMS_ITS | Encounter Summary ---
Author Organization [facility] Address [address] [place] [address] Care Team Providers Care Rn Patient Care Name Role Phone Deep Pruitt APRN Primary Care Provider Reason for Visit * Reason Comments Medication Refill Encounter Details Date Type Department Care Team ([facility] st Contact Info) Description 03/20/[address] [facility] [address] [place] [address] Deep Pruitt APRN [address] [place] [phone] Medication Refill Social History Tobacco Use [...] Date Recorded PHQ-2 Total Score 1 03/24/2021 [facility] of Occupat ional Health - [...] documented as of this encounter Care Teams Rn Patient Care Relationship Specialty Start Date End Date Deep Pruitt APRN PCP - General 05/22/19 documented as of this encounter
--- OUTSIDE RECORDS SUMMARY | 2024-06-17 13:18 | XMS_ITS | Encounter Summary ---
Author Organization [facility] Address [address] [place] [address] Care Team Providers Care Mainframe Systems Administrator Name Role Phone Romelia Pruittian Niko LOPEZ Primary Care Provider Encounter Details Date Type Department Care Team (Late st Contact Info) Description 11/30/2021 Scanned Document [facility] [address] [place] [address] External, Provider Social History Tobacco Use Types [...] Date Recorded PHQ-2 Total Score 0 11/17/2021 [facility] of Occupat ional Health - [...] documented as of this encounter Care Teams Mainframe Systems Administrator Relationship Specialty Start Date End Date Deep Pruitt APRN PCP - General 05/22/19 documented as of this encounter
--- OUTSIDE RECORDS SUMMARY | 2024-06-17 13:18 | XMS_ITS | Encounter Summary ---
Author Organization [facility] Address [address] [place] [address] Care Team Providers Care Plant Breeder Name Role Phone Romelia Pruittian Niko LOPEZ Primary Care Provider Encounter Details Date Type Department Care Team (Late st Contact Info) Description 03/18/2021 Scanned Document [facility] [address] [place] [address] External, Provider Social History Tobacco Use Types [...] Date Recorded PHQ-2 Total Score 2 03/10/2021 [facility] of Occupat ional Health - [...] as of this encounter Care Teams Plant Breeder Relationship Specialty Start Date End Date Deep Pruitt APRN PCP - General 05/22/19 documented as of this encounter
--- OUTSIDE RECORDS SUMMARY | 2024-06-17 13:18 | XMS_ITS | Encounter Summary ---
Author Organization [employer] [facility] Address [address] [place] [address] Care Team Providers Care Computing Consultant Name Role Phone Deep Pruitt APRN Primary Care Provider Reason for Visit * Reason Comments Medication Refill Encounter Details Date Type Department Care Team ([facility] st Contact Info) Description 11/17/2021 Refill [facility] [address] [place], [place] [phone] Deep Pruitt APRN [address] [place] [address] Medication Refill Social History Tobacco [...] any clubs o r organizations such as moravian groups, unions, fraternal or athletic groups, or [...] Date Recorded PHQ-2 Total Score 0 11/17/2021 [facility] of Occupat ional Health - [...] documented as of this encounter Care Teams Computing Consultant Relationship Specialty Start Date End Date Deep Pruitt APRN PCP - General 05/22/19 documented as of this encounter
--- OUTSIDE RECORDS SUMMARY | 2024-06-17 13:18 | XMS_ITS | Encounter Summary ---
Author Organization [employer] Address 75 [facility] 7t [place] [address] Care Team Providers Care Relish Blender Name Role Phone Katrin Santoyo MD Primary Care Pro vider Edison Vieira MD Unavailable [phone] Joe Devi MD Unavailable [phone] Reason for Visit * Reason Comments Med Refill Encounter Details Date Type Department Care Team (Late st Contact Info) Description 01/02/2023 Refill [facility] MEDICINE [address] [place] [address] Elise Stanford FNP [address] [place] [address] [place] [address] Hemorrhoids, unspecified hemorrhoid type Social History Tobacco [...] Description 07/02/2024 11:00 AM EST Office Visit [facility]ICINE [address] [place] [address] documented as of this encounter Goals Goal [...] documented as of this encounter Care Teams Relish Blender Relationship Specialty Start Date End Date Katrin Santoyo MD [address] [place] [address] PCP - General Internal Medicine 12/13/22 Edison Vieira MD 5 [place] [address] Pulmonary Disease 04/07/24 Joe Devi MD 11 [facility] 3rd [place] [address] Gastroenterology 04/07/24 Carito Roche DNP 10 [facility], [address] [place] [address] Nephrology 04/07/24 [employer] 04/11/24 documented as of this encounter
--- OUTSIDE RECORDS SUMMARY | 2024-06-17 13:18 | XMS_ITS | Encounter Summary ---
Author Organization [employer] [facility] Address [address] [place] [address] Care Team Providers Care Food Service Manager Name Role Phone Deep Pruitt APRN Primary Care Provider Reason for Visit * Reason Comments Medication Refill Encounter Details Date Type Department Care Team ([facility] st Contact Info) Description 12/18/2021 Refill [facility] [address] [place], [place] [phone] Deep Pruitt APRN [address] [place] [address] Medication Refill Social History Tobacco [...] Date Recorded PHQ-2 Total Score 4 12/20/2021 [facility] of Occupat ional Health [...] documented as of this encounter Care Teams Food Service Manager Relationship Specialty Start Date End Date Deep Pruitt APRN PCP - General 05/22/19 documented as of this encounter
--- OUTSIDE RECORDS SUMMARY | 2024-06-17 13:18 | XMS_ITS | Encounter Summary ---
Author Organization [employer] [facility] Address [address] [place] [address] Care Team Providers Care Modern And Contemporary Art Curator Name Role Phone Deep Pruitt APRN Primary Care Provider Reason for Visit * Reason Comments Medication Refill Encounter Details Date Type Department Care Team ([facility] st Contact Info) Description 03/08/2021 Refill [facility] [address] [place], [place] [phone] Deep Pruitt APRN [address] [place] [address] Medication Refill Social History Tobacco [...] Date Recorded PHQ-2 Total Score 2 03/10/2021 [facility] of Occupat ional Health - Occupational [...] documented as of this encounter Care Teams Modern And Contemporary Art Curator Relationship Specialty Start Date End Date Deep Pruitt APRN PCP - General 05/22/19 documented as of this encounter
--- OUTSIDE RECORDS SUMMARY | 2024-06-17 13:18 | XMS_ITS | Encounter Summary ---
Author Organization [facility] Address [address] [place] [address] Care Team Providers Care Mis Director Name Role Phone Deep Pruitt JOHN Primary Care Provider [phone] Encounter Details Date Type Department Care Team (Late st Contact Info) Description 01/17/2019 Scanned Document [facility] [address] [place], [place] [address] External, Provider Social History Tobacco Use Types [...] documented as of this encounter Care Teams Mis Director Relationship Specialty Start Date End Date Deep Pruitt APRN PCP - General 05/22/19 documented as of this encounter
--- OUTSIDE RECORDS SUMMARY | 2024-06-17 13:18 | XMS_ITS | Encounter Summary ---
Author Organization [facility] [facility] and [facility] Address [address] [place] [address] Care Team Providers Care Freight Agent Name Role Phone Deep Pruitt APRN Primary Care Provider [phone] Reason for Visit * Reason Onset Date Comments Medication Refill 11/10/2021 Encounter Details Date Type Department Care Team (Late st Contact Info) Description 11/10/2021 Refill [facility] [address] [facility] 800 [facility] 2nd [place] [address] Talyor Malagon, [facility] [address] [place] [phone] Medication Refill Social History Tobacco Use Types [...] Date Recorded PHQ-2 Total Score 0 10/12/2021 [facility] of Occupat ional [facility] [place] - Occupational Stress Questionnaire Answer Date Recorded [...] today, but unknown at home. Defer to [facility] pharmacy team for antihypertensive management. Current [...] documented as of this encounter Care Teams Freight Agent Relationship Specialty Start Date End Date Deep Pruitt APRN PCP - General 05/22/19 documented as of this encounter
--- OUTSIDE RECORDS SUMMARY | 2024-06-17 13:18 | XMS_ITS | Encounter Summary ---
Author Organization [employer] [facility] Address [address] [place] [address] Care Team Providers Care Contract Agent Name Role Phone Deep Pruitt APRN Primary Care Provider Reason for Visit * Reason Comments Medication Refill Encounter Details Date Type Department Care Team ([facility] st Contact Info) Description 03/19/2022 Refill [facility] [address] [place], [place] [phone] Deep Pruitt, JOHN [address] [place] [address] Medication Refill Social History Tobacco [...] often do you attend chur ch or restorationism services? Never 01/03/2020 Do you belong to [...] PHQ-2 Total Score 2 02/17/2022 [facility] of Occupat ional Health [...] documented as of this encounter Care Teams Contract Agent Relationship Specialty Start Date End Date Deep Pruitt APRN PCP - General 05/22/19 documented as of this encounter
--- OUTSIDE RECORDS SUMMARY | 2024-06-17 13:18 | XMS_ITS | Encounter Summary ---
Author Organization [facility] [facility] Address [address] [place] [address] Care Team Providers Care Elephant Keeper Name Role Phone Deep Pruitt APRN Primary Care Provider Reason for Visit * Reason Comments Medication Refill Encounter Details Date Type Department Care Team ([facility] st Contact Info) Description 12/15/2021 Refill [facility] [address] [place], [place] [phone] Deep Pruitt APRN [address] [place] [address] Medication Refill Social History [...] Date Recorded PHQ-2 Total Score 1 12/16/2021 [facility] of Occupat ional Health - [...] documented as of this encounter Care Teams Elephant Keeper Relationship Specialty Start Date End Date Deep Pruitt APRN PCP - General 05/22/19 documented as of this encounter
--- OUTSIDE RECORDS SUMMARY | 2024-06-17 13:18 | XMS_ITS | Encounter Summary ---
Author Organization [facility] [employer] [facility] and [facility] Address [address] [place] [phone] Care Team Providers Care Media Traffic Manager Name Role Phone Deep Pruitt APRN Primary Care Provider Reason for Visit * Reason Onset Date Comments Medication Refill 11/19/2021 Encounter Details Date Type Department Care Team (Late st Contact Info) Description 11/19/2021 Refill [facility] [address] [facility] 800 [facility] 2nd [place] [address] Yue Dominguez APRN [address] [place] [phone] Medication Refill Social History Tobacco Use Types [...] Date Recorded PHQ-2 Total Score 0 11/17/2021 [facility] of Occupat ional Health - [...] documented as of this encounter Care Teams Media Traffic Manager Relationship Specialty Start Date End Date Deep Pruitt APRN PCP - General 05/22/19 documented as of this encounter
--- OUTSIDE RECORDS SUMMARY | 2024-06-17 13:18 | XMS_ITS | Encounter Summary ---
Author Organization [facility] Address [address] [place] [address] Care Team Providers Care Data Processing Systems Consultant Name Role Phone Deep Pruitt JOHN Primary Care Provider Reason for Visit * Reason Comments Medication Refill Encounter Details Date Type Department Care Team (Late st Contact Info) Description 12/03/2021 [facility]ill [facility] [address] [place] [phone] Arben Fountain, NOL[employer]IA [address] [place] [address] Medication Refill Social History Tobacco [...] Date Recorded PHQ-2 Total Score 0 11/17/2021 [facility] - Occupational Stress Questionnaire Answer [...] documented as of this encounter Care Teams Data Processing Systems Consultant Relationship Specialty Start Date End Date Deep Pruitt APRN PCP - General 05/22/19 documented as of this encounter
--- OUTSIDE RECORDS SUMMARY | 2024-06-17 13:18 | XMS_ITS | Encounter Summary ---
Author Organization [facility] Address [address] [place] [address] Care Team Providers Care Guest House Manager Name Role Phone Deep Pruitt APRN Primary Care Provider Reason for Visit * Reason Comments Other Advice Only Encounter Details Date Type Department Care Team ([facility] Contact Info) Description 10/20/2021 Telephone [facility] [address] [place] [address] Deep Pruitt APRN [address] [place] [address] Other; Advice Only Social History [...] often do you attend chur ch or sikh services? Never 01/03/2020 Do you belong to [...] Date Recorded PHQ-2 Total Score 0 10/12/2021 [facility] ional [facility] [...] legs have not stops hurting. Contact number [phone] documented in this encounter Plan of Treatment Not on file documented as of this encounter Visit Diagnoses Not on filedocumented in this encounter Additional Health Concerns Assessment Noted Time PHQ-9 Depression Total Score: 0 10/13/19 22 2:23 PM EDT documented as of this encounter Care Teams Guest House Manager Relationship Specialty Start Date End Date Deep Pruitt APRN PCP - General 05/22/19 documented as of this encounter
--- OUTSIDE RECORDS SUMMARY | 2024-06-17 13:18 | XMS_ITS | Encounter Summary ---
Author Organization [facility] Address [address] [place] [address] Care Team Providers Care Resident Service Coordinator Name Role Phone SonalDeep Niko LOPEZ Primary Care Provider [phone] Reason for Visit * Reason Comments Medication Refill Encounter Details Date Type Department Care Team (Late st Contact Info) Description 04/07/2021 Refill [facility] Nutrition at [address] [address] Zena Hines PA [address] [place] [phone] Medication Refill Social History Tobacco Use [...] often do you attend chur ch or orthodoxy services? Never 01/03/2020 Do you belong to [...] Date Recorded PHQ-2 Total Score 1 03/24/2021 [facility] of Occupat ional Health - Occupational [...] seeing Zena Hines for DM management at [facility]. Thanks, Katrin documented in this encounter [...] documented as of this encounter Care Teams Resident Service Coordinator Relationship Specialty Start Date End Date Deep Pruitt APRN PCP - General 05/22/19 documented as of this encounter
--- OUTSIDE RECORDS SUMMARY | 2024-06-17 13:18 | XMS_ITS | Encounter Summary ---
Author Organization [facility] Address [address] [place] [address] Care Team Providers Care Liquor Department Manager Name Role Phone Deep Pruitt Niko LOPEZ Primary Care Provider [phone] Reason for Visit * Reason Comments Medication Refill Encounter Details Date Type Department Care Team (Late st Contact Info) Description 05/06/[address] [phone] Arben Fountain, NOLVIA [address] [place] [address] Medication Refill Social History Tobacco [...] often do you attend chur ch or jew services? Never 01/03/2020 Do you belong to [...] Answer Date Recorded PHQ-2 Score 0 03/13/2020 [facility] of Occupat ional Health [...] documented as of this encounter Care Teams Liquor Department Manager Relationship Specialty Start Date End Date Deep Pruitt APRN PCP - General 05/22/19 documented as of this encounter
--- OUTSIDE RECORDS SUMMARY | 2024-06-17 13:18 | XMS_ITS | Clinical Summary ---
Author Organization [facility] Address [address] [place] [address] Phone Care Team Providers Care Security Team Lead Name Role Phone Physician, No Pcp Primary Care Provider Unavaila ble Allergies Active Allergy Reactions Criticality Noted Date Comments Penicillins Rash High 04/08/2024 Medications ammonium lactate (LAC-HYDRIN) 12 % lotion Apply to soles of feet daily. At night wear socks to bed 05/30/19 24 Active albuterol HFA (Ventolin HFA) 90 mcg/actuation inhaler Inhale 2 puffs by mouth Every 4 hours as needed. 11/19/19 23 Active albuterol 2.5 mg /3 mL (0.083 %) nebulizer solution Take 3 mL (2.5 mg total) by nebulization every 4 (four) hours if needed. Active amLODIPine (NORVASC) 5 mg tablet Take 1 tablet (5 mg total) by mouth daily. 11/30/19 24 Active aspirin 81 mg chewable tablet Chew 1 tablet (81 mg total) 1 (one) time each day. Active carvediloL (COREG) 25 mg tablet Take 1 tablet (25 mg total) by mouth 2 (two) times a day with meals. 08/26/19 23 Active cholecalciferol (VITAMIN D-3) 50 mcg (2,000 unit) tablet Take 1 tablet (2,000 Units total) by mouth daily. 09/19/19 24 025 Active clonazePAM (KlonoPIN) 0.5 mg tablet Take [...] the skin 1 (one) time per week. 05/05/20 Active DULoxetine (CYMBALTA) [address] capsule Take 1 capsule (30 mg total) by mouth 1 (one) time each day. 02/28/20 23 Active Jardiance 10 mg tablet Take 1 tablet (10 mg total) by mouth daily. 03/26/20 24 Active ezetimibe (ZETIA) 10 mg tablet Take 1 tablet (10 mg total) by mouth 1 (one) time each day in the morning. Active febuxostat (ULORIC) 40 mg tablet Take 1 tablet (40 mg total) by mouth 1 (one) time each day. Active FLUoxetine (PROzac) 40 mg capsule Take 1 capsule (40 mg total) by mouth daily. 02/01/20 24 Active Advair HFA 230-21 mcg/actuation inhaler Inhale 2 puffs by mouth 2 (two) times a day. Active fluticasone propionate (FLONASE) 50 mcg/actuation nasal spray Administer 1-2 sprays into each nostril daily. 03/13/20 24 025 Active furosemide (LASIX) 40 mg tablet Take 1 tablet (40 mg total) by mouth daily. 04/07/20 24 025 Active gabapentin (NEURONTIN) 600 mg tablet Take [...] by mouth 1 (one) time each day. 08/10/19 23 Active olmesartan (BENICAR) 20 mg tablet Take 1 tablet (20 mg total) by mouth 1 (one) time each day. 03/27/20 24 Active Spiriva Respimat 1.25 mcg/actuation inhalation spray Inhale 2 puffs by mouth 1 (one) time each day. Active traMADoL (ULTRAM) 50 mg tablet Take 1 tablet (50 mg total) by mouth every 8 (eight) hours if needed for moderate pain or severe pain. Max Daily Amount: 150 mg 02/05/20 Active ziprasidone (GEODON) 80 mg capsule Take 1 capsule (80 mg total) by mouth at bedtime. at bedtime Active cyclobenzaprine (FLEXERIL) 10 mg tablet Take 1 tablet (10 mg total) by mouth 2 (two) times a day if needed for muscle spasms for up to 3 days. 6 each 04/08/20 24 Active Encounters Date Type Department Care Team Description 04/08/2024 1:18 PM EST - 04/08/2024 4:25 PM EST Emergency [facility] Emergency [address] [place] [address] Nils Silverman MD Cervical strain, acute, initial [...] at Not on file Legal Sex Male 8:57 PM EST Gender Identity Not on file Sexual Orientation Not on file Obstetrics History Last Filed [...] 1989 Zoster Vaccines (1 of 2) 2020 Pneumococcal Vaccine: 50+ Years (2 of 2 - PCV) 01/21/2022 01/21/2021 DTaP,Tdap,and Td Vaccines (3 - Td or Tdap) 09/21/2022 03/24/2022, 10/05/2016 Colorectal Cancer Screening: Colonoscopy 06/02/2023 Social Influencers of Health Screening 06/02/2023 Diabetes: Annual Urine Albumin-Creatinine Ratio (uACR) 05/19/2024 05/19/2023, 02/15/2022 Diabetes: Blood Sugar Control Test (HGBA1C) 09/24/2024 03/27/2024, 02/01/2024, 05/17/2023, Additional history exists Depression Screening 10/30/2024 10/31/2023 Diabetes: Annual GFR (Glomerular Filtration Rate) 04/03/2025 04/03/2024, 03/27/2024, 03/20/2024, Additional history exists Hypertension/CHF/CAD Annual BMP Blood Test 04/03/2025 04/03/2024, 03/27/2024, 03/20/2024, Additional history exists Pneumococcal Vaccine: Pediatrics (0 to 5 Years) and At-Risk Patients (6 to 64 Years) (3 of 3 - PCV20 or PCV21) 03/24/2027 03/24/2022, 01/21/2021 Cholesterol Screening (Lipid Panel) 09/18/2028 09/19/2023, 09/19/2023, 03/14/2022 Hepatitis B Vaccines Completed 04/05/2017, 10/05/2016, 08/17/2016 [...] patient's age to complete this topic Meningococcal B Vacine Aged Out No lo nger eligible based on patient's age to complete [...] TEST Routine 11/07/2023 LIPID PANEL Routine 09/19/2023 HM URINE ALBUMIN CREATININE RATIO Routine 05/19/2023 HEMOGLOBIN A1C Routine 05/17/2023 HM HEPATITIS C SCREENING Routine 12/06/2022 HM HIV SCREENING Routine 12/06/2022 from Last 3 [...] Signed Date: 04/08/2024 15:28 ET Workstation ID: [id number] Transcribed By: Self Edit Transcribed Date: 04/08/2024 [...] Signed Date: 04/08/2024 15:28 ET Workstation ID: [id number] Transcribed By: Self Edit Transcribed Date: 04/08/2024 15:27 ET Codi VICTORIA IMG XR PROCEDURES Final Resul t * XR Femur 2+ Views Left (04/08/2024 [...] Signed Date: 04/08/2024 15:24 ET Workstation ID: [id number] Transcribed By: Self Edit Transcribed Date: 04/08/2024 [...] in the setting of diabetes. Procedure Note Nnia Hennessy MD - 04/08/2024 History: Left femur [...] Signed Date: 04/08/2024 15:24 ET Workstation ID: [id number] Transcribed By: Self Edit Transcribed Date: 04/08/2024 15:23 ET Codi VICTORIA IMG XR PROCEDURES Final Resul t * XR Hand 3+ Views Left (04/08/2024 [...] Signed Date: 04/08/2024 15:26 ET Workstation ID: [id number] Transcribed By: Self Edit Transcribed Date: 04/08/2024 [...] Signed Date: 04/08/2024 15:26 ET Workstation ID: [id number] Transcribed By: Self Edit Transcribed Date: 04/08/2024 15:24 ET Codi VICTORIA IMG XR PROCEDURES Final Resul t * XR Wrist 3+ Views Left (04/08/2024 [...] Signed Date: 04/08/2024 15:26 ET Workstation ID: [id number] Transcribed By: Self Edit Transcribed Date: 04/08/2024 [...] Signed Date: 04/08/2024 15:26 ET Workstation ID: [id number] Transcribed By: Self Edit Transcribed Date: 04/08/2024 15:24 ET Result [facility] Codi VICTORIA IMG XR PROCEDURES Final Resul t * Annual BMP Blood Test (11/07/2023) [facility] Annual BMP Blood Test Abstracted Result [facility] Provider HEALTH MAINTENANCE Final Result * Lipid panel (09/19/2023) [facility] Triglycerides 0 mg/dL Comment:No interpretation Cholesterol 0 mg/dL Comment:No interpretation HDL 0 mg/dL Comment:No interpretation LDL Cholesterol 0 mg/dL Comment:No interpretation Blood Venous blood specimen / Unknown Result [facility] Provider LAB BLOOD ORDERABLES Fauzia l Result * Urine Albumin Creatinine Ratio (05/19/2023) [facility] Urine Albumin Creatinine Ratio Abstracted Result [facility] Provider HEALTH MAINTENANCE Final Result * Hemoglobin A1c (05/17/2023) [facility] Hemoglobin A1C 0.0 % Comment:No interpretation Blood Venous blood specimen / Unknown Result [facility] Provider LAB BLOOD ORDERABLES Fauzia l Result * HIV Screening (12/06/2022) [facility] HIV Screening Abstracted Result [facility] Provider HEALTH MAINTENANCE Final Result * Hepatitis C Screening (12/06/2022) [facility] Hepatitis C Screening Abstracted Result [facility] Provider HEALTH MAINTENANCE Final Result from Last 3 Months or Most Recently Relevant to Health Maintenance Insurance [place] [id number] Care Teams Security Team Lead Relationship Specialty Start Date End Date Physician, No Pcp PCP - General 04/08/24
--- OUTSIDE RECORDS SUMMARY | 2024-06-17 13:18 | XMS_ITS | Encounter Summary ---
Author Organization [facility] Address [address] [place] [address] Care Team Providers Care Machinist Helper Marine Name Role Phone Deep Pruitt JOHN Primary Care Provider [phone] Encounter Details Date Type Department Care Team (Late st Contact Info) Description 01/02/2017 Scanned Document [facility] [address] [place], [place] [phone] Francisco Veloz PA [address] [place] [address] Social History Tobacco Use Types [...] documented as of this encounter Care Teams Machinist Helper Marine Relationship Specialty Start Date End Date Deep Pruitt APRN PCP - General 05/22/19 documented as of this encounter
--- OUTSIDE RECORDS SUMMARY | 2024-06-17 13:18 | XMS_ITS | Encounter Summary ---
Author Organization [facility] Address [address] [place] [address] Care Team Providers Care Manager Of Business Name Role Phone Romelia Pruittian Niko LOPEZ Primary Care Provider Reason for Visit * Reason Onset Date Comments Medication Refill 11/10/2021 Encounter Details Date Type Department Care Team (Late st Contact Info) Description 11/10/2021 Refill [facility] Nutrition at [address] [facility] [address] [place] [phone] Anahi Rossi, JOHN [address] [place] [phone] Medication Refill Social History Tobacco Use [...] any clubs o r organizations such as orthodoxy groups, unions, fraternal or athletic groups, or [...] Date Recorded PHQ-2 Total Score 0 10/12/2021 [facility] of Occupat ional Health - Occupational Stress [...] of this encounter Care Teams Manager Of Business Relationship Specialty Start Date End Date Deep Pruitt APRN PCP - General 05/22/19 documented as of this encounter
--- OUTSIDE RECORDS SUMMARY | 2024-06-17 13:18 | XMS_ITS | Encounter Summary ---
Author Organization [facility] Address [address] [place] [address] Care Team Providers Care Reading Efficiency Course Director Name Role Phone Sonal Deep Niko LOPEZ Primary Care Provider [phone] Reason for Visit * Reason Comments Medication Refill Encounter Details Date Type Department Care Team ([facility] st Contact Info) Description 04/07/2021 Refill [facility] [address] [place] [phone] Aliya Pond, [address] [address] Medication Refill Social History Tobacco [...] Date Recorded PHQ-2 Total Score 1 03/24/2021 [facility] - [...] documented as of this encounter Care Teams Reading Efficiency Course Director Relationship Specialty Start Date End Date Deep Pruitt APRN PCP - General 05/22/19 documented as of this encounter
--- OUTSIDE RECORDS SUMMARY | 2024-06-17 13:18 | XMS_ITS | Clinical Summary ---
Author Organization [facility] Address [address] [facility] [address] [place] [address] Phone Care Team Providers Care Supervisor Lump Room Name Role Phone Katrin Brumfield Primary Care [...] 4 12/04/19 25 Active ergocalciferol 1.25 MG (10851 UT) capsule Take 1 capsule (50,000 Units [...] (01/25/2023): information and pathology of colonospcy in [facility] 09-09-2020 note Asthma 01/06/2023 01/25/2023 Arthritis 01/06/2023 [...] (see MRI of Brain from 2017 under [facility] Multimedia -Significant deficits on neurologic exam Memory loss and Left handed weakness -Imaging and prior evaluation -Current blood thinning agents is aspirin -Potential details to include, when relevant: poor GAIT, uses a walker to get around -How the diagnosis was made: Pt lived in [facility] at the time, Under Multimedia in [facility] see specific file at specific date [id number].TIF Image MRI Result [facility] - MRI BRAIN CVA -09/25/2016 [id number].TIF Image Evaluation [facility]- Left handed weakness note - 02/20/2017 [...] 2019, the Pt needs to call the [facility]RIC SURGERY [address] [place], [place] [phone] Diabetic foot 02/07/2019 01/25/2023 01/25/2023 Overview (01/25/2023): Last Assessment & Plan: The Pt continues to deal with bilateral foot pain and wears a pair of Diabetic shoes with specification ordered by his Leadership Coach Doctor Patient encounter status 02/07/2019 01/25/2023 Overview [...] -Pt will be called biweekly by the [facility] Nurse to review his FBS finger sticks [...] medications -He has been following with the [facility] team and reports taking all of [...] decided to move his family back to [place] area due to being closer to family [...] Of [place] [address] [place] [address] Efren Quispe MD Stage 3b [...] Office Visit [facility] [address] [phone] Isha Ruth ARNP [address] [address] Health Maintenance Due Date Last [...] [place] Care Teams Supervisor Lump Room Relationship Specialty Start Date End Date Katrin Brumfield [address] [place] [id number] PCP - General 04/17/23
--- OUTSIDE RECORDS SUMMARY | 2024-06-17 13:18 | XMS_ITS | Encounter Summary ---
Author Organization [facility] Address [address] [place] [phone] Care Team Providers Care Sill Worker Name Role Phone Deep Pruitt APRN Primary Care Provider Encounter Details Date Type Department Care Team (Late st Contact Info) Description 04/08/2021 Lab Requisition [facility] Laboratory Specimens [address] [place] [address] Isha Brown APRN [address] [place] [address] Persons encountering health services in [...] Date Recorded PHQ-2 Total Score 1 03/24/2021 [facility] - Occupational [...] Date/Time Associated Diagnosis Comments BLOOD GAS, ARTERIAL ([facility]) Routine 04/08/2021 12:44 PM EST documented in this encounter Results * (ABNORMAL) Blood gas, arterial () (04/08/2021 12:44 PM EST) pH Arterial 7.37 7.35 - 7.45 units 04/08/2021 12:54 PM [facility] DEPARTMENT OF LABORATORY MEDICINE pCO2, Arterial 49(H) 32 - 48 mmHg 04/08/20 21 12:54 PM [facility] DEPARTMENT OF LABORATORY MEDICINE pO2, Arterial 65(L) 83 - 108 mmHg 04/08/2021 12:54 PM [facility] DEPARTMENT OF LABORATORY MEDICINE O2 Sat, Arterial 89(L) 94 - 98 % 04/08/20 12:54 PM [facility] DEPARTMENT OF LABORATORY MEDICINE Calculated HCO3, Arterial 27.5 21.0 - 28.0 mmol/L 04/08/2021 12:54 PM [facility] DEPARTMENT OF LABORATORY MEDICINE Base Excess, Arterial 2 -2 - 3 mmol/L 04/08/2021 12:54 PM [facility] DEPARTMENT OF LABORATORY MEDICINE Patient Temperature 37.0 Celsius 04/08/2021 12:54 PM EST [facility] DEPARTMENT OF LABORATORY MEDICINE FIO2 21 % 04/08/2021 12:54 PM EST [facility] DEPARTMENT OF LABORATORY MEDICINE Blood, Arterial 04/08/2021 1 2:44 PM EST 04/08/2021 12:45 PM EST us Isha Brown COKE HANDLING SUPERVISOR LAB BLOOD ORDERABL ES Final Result Performing Organization Address City/State/[facility] de Phone Number [facility] DEPARTMENT OF LABORATORY MEDICINE [address] [place] [address] documented in this encounter Visit Diagnoses Diagnosis [...] documented as of this encounter Care Teams Sill Worker Relationship Specialty Start Date End Date Deep Pruitt APRN PCP - General 05/22/19 documented as of this encounter
--- OUTSIDE RECORDS SUMMARY | 2024-06-17 13:18 | XMS_ITS | Encounter Summary ---
Author Organization [facility] Address [address] [place] [phone] Care Team Providers Care Dope Mixer Name Role Phone Deep Pruitt APRN Primary Care Provider Reason for Visit * Reason Onset Date Comments Medication Refill 11/19/2021 Encounter Details Date Type Department Care Team (Late st Contact Info) Description 11/19/2021 Refill [facility] [address] [facility] [address] [facility] 2nd [place] [address] Yue Dominguez APRN [address] [place] [phone] Medication Refill Social History Tobacco Use Types [...] Date Recorded PHQ-2 Total Score 0 11/17/2021 [facility] of Occupat ional Health - [...] documented as of this encounter Care Teams Dope Mixer Relationship Specialty Start Date End Date Deep Pruitt APRN PCP - General 05/22/19 documented as of this encounter
--- OUTSIDE RECORDS SUMMARY | 2024-06-17 13:18 | XMS_ITS | Encounter Summary ---
Author Organization [facility] Address [address] [place] [address] Care Team Providers Care Deck Worker Name Role Phone Deep Pruitt APRN Primary Care Provider Encounter Details Date Type Department Care Team ([facility] st Contact Info) Description 10/27/2021 Scanned Document [facility] [address] [place], [place] [phone] Deep Pruitt APRN [address] [place] [address] Social History Tobacco Use Types [...] Recorded PHQ-2 Total Score 0 10/12/2021 [facility] of Occupat ional Health - [...] documented as of this encounter Care Teams Deck Worker Relationship Specialty Start Date End Date Deep Pruitt APRN PCP - General 05/22/19 documented as of this encounter
--- OUTSIDE RECORDS SUMMARY | 2024-06-17 13:18 | XMS_ITS | Encounter Summary ---
Author Organization [facility] Address [address] [place] [address] Care Team Providers Care Ct Manager Name Role Phone Deep Pruitt JOHN Primary Care Provider [phone] Encounter Details Date Type Department Care Team (Late st Contact Info) Description 02/20/2017 Scanned Document [facility] [address] [place] [address] Francisco Veloz PA [address] [place] [phone] Social History Tobacco Use Types Packs/Day [...] documented as of this encounter Care Teams Ct Manager Relationship Specialty Start Date End Date Deep Pruitt APRN PCP - General 05/22/19 documented as of this encounter
--- OUTSIDE RECORDS SUMMARY | 2024-06-17 13:18 | XMS_ITS | Encounter Summary ---
Author Organization [facility] Address [address] [place] [address] Care Team Providers Care Senior Mortgage Loan Processor Name Role Phone Deep Pruitt JOHN Primary Care Provider Encounter Details Date Type Department Care Team (Late st Contact Info) Description 02/13/2018 Scanned Document [facility] [address] [place] [address] Francisco Veloz PA [address] [place] [phone] Social History Tobacco Use Types Packs/Day [...] as of this encounter Care Teams Senior Mortgage Loan Processor Relationship Specialty Start Date End Date Deep Pruitt APRN PCP - General 05/22/19 documented as of this encounter
--- OUTSIDE RECORDS SUMMARY | 2024-06-17 13:18 | XMS_ITS | Encounter Summary ---
Author Organization [facility] Address [address] [place] [address] Care Team Providers Care Gasoline Catalyst Operator Name Role Phone Deep Pruitt JOHN Primary Care Provider Encounter Details Date Type Department Care Team (Late st Contact Info) Description 09/26/2016 Scanned Document [facility] [address] [place], [place] [phone] External, Provider Social History Tobacco Use Types [...] documented as of this encounter Care Teams Gasoline Catalyst Operator Relationship Specialty Start Date End Date Deep Pruitt APRN PCP - General 05/22/19 documented as of this encounter
--- OUTSIDE RECORDS SUMMARY | 2024-06-17 13:18 | XMS_ITS | Encounter Summary ---
Author Organization [facility] Address [address] [place] [address] Care Team Providers Care Exhaust Machine Operator Name Role Phone Romelia Pruittian Niko LOPEZ Primary Care Provider Reason for Visit * Reason Onset Date Comments Medication Refill 11/19/2021 Encounter Details Date Type Department Care Team (Late st Contact Info) Description 11/19/2021 Refill [facility] [address] [place] [phone] Carlos Eduardo Joyner MD [address] [place] [phone] Medication Refill Social History Tobacco Use [...] any clubs o r organizations such as yarsanism groups, unions, fraternal or athletic groups, or [...] Total Score 0 11/17/2021 [facility] - Occupational Stress Questionnaire Answer [...] documented as of this encounter Care Teams Exhaust Machine Operator Relationship Specialty Start Date End Date Deep Pruitt APRN PCP - General 05/22/19 documented as of this encounter
--- OUTSIDE RECORDS SUMMARY | 2024-06-17 13:18 | XMS_ITS | Encounter Summary ---
Author Organization [facility] Address [address] [place] [address] Care Team Providers Care Ferry Engineer Name Role Phone Deep Pruitt APRN Primary Care Provider Reason for Visit * Reason Comments Medication Refill Encounter Details Date Type Department Care Team ([facility] st Contact Info) Description 02/25/2022 Refill [facility] [address] [place], [place] [phone] Deep Pruitt, JOHN [address] [place] [phone] Medication Refill Social History Tobacco Use [...] documented as of this encounter Care Teams Ferry Engineer Relationship Specialty Start Date End Date Deep Pruitt APRN PCP - General 05/22/19 documented as of this encounter
--- OUTSIDE RECORDS SUMMARY | 2024-06-17 13:18 | XMS_ITS | Encounter Summary ---
Author Organization [facility] Address [address] [place] [address] Care Team Providers Care Environmental Emergencies Assistant Name Role Phone Mud ButteDeep medina Niko LOPEZ Primary Care Provider Reason for Visit * Reason Onset Date Comments Medication Refill 11/19/2021 Encounter Details Date Type Department Care Team (Late st Contact Info) Description 11/19/2021 Refill [facility] [address] [place] [address] Audelia Childs, DDS [address] [place] [address] Medication Refill Social History Tobacco [...] Date Recorded PHQ-2 Total Score 0 11/17/2021 [facility] of Occupat ional Health - Occupational Stress [...] as of this encounter Care Teams Environmental Emergencies Assistant Relationship Specialty Start Date End Date Deep Pruitt APRN PCP - General 05/22/19 documented as of this encounter
--- OUTSIDE RECORDS SUMMARY | 2024-06-17 13:18 | XMS_ITS | Encounter Summary ---
Author Organization [facility] Address [address] [place] [address] Care Team Providers Care Child Welfare Counselor Name Role Phone Deep Pruitt JOHN Primary Care Provider Encounter Details Date Type Department Care Team (Late st Contact Info) Description 02/12/2016 Scanned Document [facility] [address] [place] [address] Francisco Veloz PA [address] [place] [phone] Social History Tobacco Use Types Packs/Day [...] as of this encounter Care Teams Child Welfare Counselor Relationship Specialty Start Date End Date Deep Pruitt APRN PCP - General 05/22/19 documented as of this encounter
--- OUTSIDE RECORDS SUMMARY | 2024-06-17 13:18 | XMS_ITS | Encounter Summary ---
Author Organization [facility] Address [address] [place] [address] Care Team Providers Care Watch And Clock Repairer Name Role Phone Deep Pruitt APRN Primary Care Provider Reason for Visit * Reason Onset Date Comments Medication Refill 11/10/2021 Encounter Details Date Type Department Care Team (Late st Contact Info) Description 11/10/2021 Refill [facility] [address] [facility] [address] [facility] 2nd [place] [address] Taylor Malagon, [facility] [address] [place] [phone] Medication Refill Social History Tobacco Use Types [...] Date Recorded PHQ-2 Total Score 0 10/12/2021 [facility] of Occupat ional [facility] - Occupational Stress Questionnaire Answer Date [...] documented as of this encounter Care Teams Watch And Clock Repairer Relationship Specialty Start Date End Date Deep Pruitt APRN PCP - General 05/22/19 documented as of this encounter
--- OUTSIDE RECORDS SUMMARY | 2024-06-17 13:18 | XMS_ITS | Encounter Summary ---
Author Organization [facility] Address [address] [place] [address] Care Team Providers Care Vocational Training Director Name Role Phone Deep Pruitt APRN Primary Care Provider Reason for Visit * Reason Comments Medication Problem Encounter Details Date Type Department Care Team ([facility] st Contact Info) Description 12/21/2021 Refill [facility] [address] [place] [address] Deep Pruitt APRN [address] [place] [address] Medication Problem Social History Tobacco [...] often do you attend chur ch or mu-ism services? Never 01/03/2020 Do you belong to [...] Date Recorded PHQ-2 Total Score 4 12/20/2021 [facility] of Occupat ional [...] updated information the water pill. Call back [phone] * Telephone Encounter - Sarah Newman - 12/21/2021 1:05 PM EDT Best contact: [phone] Patient Sissy called and stated that she contacted [facility] on and they informed that the [...] documented as of this encounter Care Teams Vocational Training Director Relationship Specialty Start Date End Date Deep Pruitt APRN PCP - General 05/22/19 documented as of this encounter
--- OUTSIDE RECORDS SUMMARY | 2024-06-17 13:18 | XMS_ITS | Encounter Summary ---
Author Organization [facility] Address [address] [place] [address] Care Team Providers Care Superintendent Drilling And Production Name Role Phone Deep Pruitt JOHN Primary Care Provider Encounter Details Date Type Department Care Team (Late st Contact Info) Description 04/05/2017 Scanned Document [facility] [address] [place], [place] [phone] Francisco Veloz PA [address] [place] [phone] Social History Tobacco Use Types Packs/Day [...] documented as of this encounter Care Teams Superintendent Drilling And Production Relationship Specialty Start Date End Date Deep Pruitt APRN PCP - General 05/22/19 documented as of this encounter
--- OUTSIDE RECORDS SUMMARY | 2024-06-17 13:18 | XMS_ITS | Encounter Summary ---
Author Organization [employer] [facility] Address [address] [facility] 7t [place] [address] Care Team Providers Care Grooming Assistant Name Role Phone Elise Stanford Primary Care Provider [phone]- [phone] Katrin Santoyo MD Primary Care Pro vider Edison Vieira MD Unavailable [phone] Joe Devi MD Unavailable [phone] Reason for Visit * Reason Onset Date Comments Referral 11/24/2022 Podiatry Encounter Details Date Type Department Care Team (Late st Contact Info) Description 11/24/2022 Telephone [facility] [address] [place] [address] Elise Stanford FNP [address] [place] [address] [place] [address] Referral (Podiatry/) Social History Tobacco Use Types [...] Anne Ocasio - 11/29/2022 9:46 AM EDT General Surgery Physician Assistant re-faxed referral to Dr. Smith's office. General Surgery Physician Assistant called Dr. Smith's office and confirmed that referral was received. General Surgery Physician Assistant attempted to call patient twice to infirm that he may call to schedule his appt but did not answer and voicemail could not be left due to pt not having voicemail setup. Dr. Smith [address] [place] [address] FAX [phone] * Telephone Encounter - Elizabeth Melo - 11/24/2022 9:51 AM EDT Tc from patient requesting status on podiatry referral. General Surgery Physician Assistant provided address and phone number and patient [...] Description 07/02/2024 11:00 AM EST Office Visit [facility] [address] [place] [address] documented as of this encounter Visit Diagnoses Not on filedocumented in this encounter Additional Health Concerns Assessment Noted Time PHQ-9 Depression Total Score: 24 023 2:05 PM EDT documented as of this encounter Care Teams Grooming Assistant Relationship Specialty Start Date End Date Elise Stanford FNP PCP - General Family Medicine 11/24/22 12/12/22 Katrin Santoyo MD [address] [place] [address] PCP - General Internal Medicine 12/13/22 Edison Vieira MD [address] [place] [address] Pulmonary Disease 04/07/24 Joe Devi MD [address] 3rd [place] [address] Gastroenterology 04/07/24 Carito Roche DNP [address], [address] [place] [address] Nephrology 04/07/24 [facility] 04/11/24 documented as of this encounter
--- OUTSIDE RECORDS SUMMARY | 2024-06-17 13:18 | XMS_ITS | Encounter Summary ---
Author Organization [facility] Address [address] [place] [address] Care Team Providers Care Coal Shooter Name Role Phone Deep Pruitt JOHN Primary Care Provider [phone] Encounter Details Date Type Department Care Team (Late st Contact Info) Description 11/22/2017 Scanned Document [facility] [address] [place], [place] [phone] Francisco Veloz PA [address] [place] [address] Social History Tobacco Use Types [...] as of this encounter Care Teams Coal Shooter Relationship Specialty Start Date End Date Deep Pruitt APRN PCP - General 05/22/19 documented as of this encounter
--- OUTSIDE RECORDS SUMMARY | 2024-06-17 13:18 | XMS_ITS | Encounter Summary ---
Author Organization [facility] [employer] [facility] Address [address] [place] [address] Care Team Providers Care Media Account Executive Name Role Phone Deep Pruitt APRN Primary Care Provider [phone] Reason for Visit * Reason Onset Date Comments Medication Refill 11/10/2021 Encounter Details Date Type Department Care Team (Late st Contact Info) Description 11/10/2021 [facility]ill [facility] [address] [place] [address] Anahi Rossi, JOHN [address] [place] [address] Medication Refill Social History Tobacco [...] Recorded PHQ-2 Total Score 0 10/12/2021 [facility] of Occupat ional [facility] - Occupational Stress Questionnaire Answer Date Recorded [...] as of this encounter Care Teams Media Account Executive Relationship Specialty Start Date End Date Deep Pruitt APRN PCP - General 05/22/19 documented as of this encounter
--- OUTSIDE RECORDS SUMMARY | 2024-06-17 13:18 | XMS_ITS | Encounter Summary ---
Author Organization [facility] Address [address] [place] [address] Care Team Providers Care Wrapper And Preserver Name Role Phone Deep Pruitt JOHN Primary Care Provider Encounter Details Date Type Department Care Team (Late st Contact Info) Description 01/01/2018 Scanned Document [facility] [address] [place], [place] [address] Francisco Veloz PA [address] [place] [phone] Social History Tobacco Use Types Packs/Day [...] documented as of this encounter Care Teams Wrapper And Preserver Relationship Specialty Start Date End Date Deep Pruitt APRN PCP - General 05/22/19 documented as of this encounter
--- OUTSIDE RECORDS SUMMARY | 2024-06-17 13:18 | XMS_ITS | Encounter Summary ---
Author Organization [facility] Address [address] [place] [address] Care Team Providers Care Doweler Name Role Phone Deep Pruitt APRN Primary Care Provider Reason for Visit * Reason Comments Advice Only Other Encounter Details Date Type Department Care Team ([facility] Contact Info) Description 12/02/2021 Telephone [facility] [address] [place] [address] Deep Pruitt APRN [address] [place] [address] Advice Only; Other Social History [...] Date Recorded PHQ-2 Total Score 0 11/17/2021 [facility] of Occupat ional [...] Mira Rios - 12/02/2021 1:32 PM EDT [facility] - [address] calling in regards to med refill request for Carvedilol 25 mg and Gabapentin medications. Call back [phone] * Telephone Encounter - Leah Madera LPN - 12/02/2021 1:21 PM EDT Patient at * Telephone Encounter - Usha Kline - 12/02/2021 12:18 PM EDT Pt is having a lot of stomach pain on the left side and would like to speak with PCP or nurse. Requesting a call back. [facility] callback number [phone] German speaking documented in this encounter Plan of [...] documented as of this encounter Care Teams Doweler Relationship Specialty Start Date End Date Deep Pruitt APRN PCP - General 05/22/19 documented as of this encounter
--- OUTSIDE RECORDS SUMMARY | 2024-06-17 13:19 | XMS_ITS | Encounter Summary ---
Author Organization [employer] Address [address] [facility] 7t [place] [address] Care Team Providers Care Top And Trim Worker Name Role Phone Elise Stanford PIPE FITTER SOFT COPPER Primary Care Provider [phone]- [phone] Katrin Santoyo MD Primary Care Pro vider Edison Vieira MD Unavailable Joe Devi MD Unavailable [phone] Encounter Details Date Type Department Care Team (Late st Contact Info) Description 12/06/2022 Telephone [facility] [address] [place] [address] Susan Manzano LPN Social History Tobacco Use [...] glucose of 411 today. Call placed via [employer] cab station attendant [phone] patient updated that BG this morning elevated. [...] Description 07/02/2024 11:00 AM EST Office Visit [facility] [address] [place] [address] documented as of this encounter Visit Diagnoses Not on filedocumented in this encounter Additional Health Concerns Assessment Noted Time PHQ-9 Depression Total Score: 24 023 2:05 PM EDT documented as of this encounter Care Teams Top And Trim Worker Relationship Specialty Start Date End Date Elise Stanford FNP PCP - General Family Medicine 11/24/22 12/12/22 Katrin Santoyo MD [address] [place] [address] PCP - General Internal Medicine 12/13/22 Edison Vieira MD [address] [place] [address] Pulmonary Disease 04/07/24 Joe Devi MD [address]rd [place] [address] Gastroenterology 04/07/24 Carito Roche DNP [address], [address] [place] [address] Nephrology 04/07/24 [facility] 04/11/24 documented as of this encounter
--- OUTSIDE RECORDS SUMMARY | 2024-06-17 13:19 | XMS_ITS | Encounter Summary ---
Author Organization [employer] Address [address] [facility] 7 [place] [address] Care Team Providers Care Drain Technician Name Role Phone Katrin Santoyo MD Primary Care Pro vider Edison Vieira MD Unavailable [phone] Joe Devi MD Unavailable [phone] Encounter Details Date Type Department Care Team (Late st Contact Info) Description 06/21/2023 Abstract [facility] [address] [place], [place] [phone] Katrin Santoyo MD [address] [place] [address] Social History Tobacco Use Types Packs/Day Years [...] Description 07/02/2024 11:00 AM EST Office Visit [facility] [address] [place] [address] documented as of this encounter Goals Goal [...] documented as of this encounter Care Teams Drain Technician Relationship Specialty Start Date End Date Katrin Santoyo MD [address] [place] [address] PCP - General Internal Medicine 12/13/22 Edison Vieira MD [address] [place] [address] Pulmonary Disease 04/07/24 Joe Devi MD [address] [facility] 3rd [place] [address] Gastroenterology 04/07/24 Carito Roche DNP [address] [facility], [address] [place] [address] Nephrology 04/07/24 [facility] 04/11/24 documented as of this encounter
--- OUTSIDE RECORDS SUMMARY | 2024-06-17 13:19 | XMS_ITS | Encounter Summary ---
Author Organization [facility] Address [address] [place] [address] Care Team Providers Care Caustic Strength Inspector Name Role Phone Deep Pruitt APRN Primary Care Provider [phone] Reason for Visit * Reason Onset Date Comments Medication Refill 10/12/2021 Encounter Details Date Type Department Care Team (Late st Contact Info) Description 10/12/2021 [facility]ill [facility] [address] [place] [address] Anahi Rossi, JOHN [address] [place] [address] Medication Refill Social History Tobacco [...] Date Recorded PHQ-2 Total Score 0 10/12/2021 [facility] of Occupat ional [facility] [...] documented as of this encounter Care Teams Caustic Strength Inspector Relationship Specialty Start Date End Date Deep Pruitt APRN PCP - General 05/22/19 documented as of this encounter
--- OUTSIDE RECORDS SUMMARY | 2024-06-17 13:19 | XMS_ITS | Encounter Summary ---
Author Organization [facility] Address [address] [place] [address] Care Team Providers Care Weed Controller Name Role Phone Deep Pruitt APRN Primary Care Provider Reason for Visit * Reason Onset Date Comments Medication Refill 09/20/2021 Encounter Details Date Type Department Care Team (Late st Contact Info) Description 09/20/2021 Refill [facility] [address] [facility] [address] [facility] 2nd [place] [address] Ricarda Du MD [address] [place] [phone] Medication Refill Social History Tobacco Use Types [...] often do you attend chur ch or scientologist services? Never 01/03/2020 Do you belong to [...] Date Recorded PHQ-2 Total Score 5 09/14/2021 [facility] of Occupat ional Health [...] 09/20/2021 8:29 AM EDT Per visit with Talyor Sawant on 09/14/21, Amlodipine was stopped and [...] documented as of this encounter Care Teams Weed Controller Relationship Specialty Start Date End Date Deep Pruitt APRN PCP - General 05/22/19 documented as of this encounter
--- OUTSIDE RECORDS SUMMARY | 2024-06-17 13:19 | XMS_ITS | Encounter Summary ---
Author Organization [facility] Address [address] [place] [address] Care Team Providers Care Cloth Winder Machine Operator Name Role Phone MonaDeep medina Niko LOPEZ Primary Care Provider [phone] [phone] Encounter Details Date Type Department Care Team (Late st Contact Info) Description 02/19/2020 Scanned Document [facility] [address] [place], [place] [phone] Arben Fountain, [employer] [address] [place] [address] Social History Tobacco Use Types [...] Answer Date Recorded PHQ-2 Score 2 10/02/2019 [facility] of Occupat ional Health - Occupational Stress [...] documented as of this encounter Care Teams Cloth Winder Machine Operator Relationship Specialty Start Date End Date Deep Pruitt APRN PCP - General 05/22/19 documented as of this encounter
--- OUTSIDE RECORDS SUMMARY | 2024-06-17 13:19 | XMS_ITS | Encounter Summary ---
Author Organization [facility] Address [address] [place] [address] Care Team Providers Care Manufacturing Finance Manager Name Role Phone Deep Pruitt APRN Primary Care Provider Reason for Visit * Reason Comments Medication Refill Encounter Details Date Type Department Care Team ([facility] st Contact Info) Description 12/29/2020 Refill [facility] [address] [place] [address] Deep Pruitt APRN [address] [place] [phone] Medication Refill Social History Tobacco Use [...] often do you attend chur ch or spiritism services? Never 01/03/2020 Do you belong to [...] Date Recorded PHQ-2 Total Score 0 11/18/2020 [facility] of Occupat ional [...] as of this encounter Care Teams Manufacturing Finance Manager Relationship Specialty Start Date End Date Deep Pruitt APRN PCP - General 05/22/19 documented as of this encounter
--- OUTSIDE RECORDS SUMMARY | 2024-06-17 13:19 | XMS_ITS | Encounter Summary ---
Author Organization [facility] [employer] [facility] Address [address] [place] [address] Care Team Providers Care Marshmallow Maker Name Role Phone Deep Pruitt APRN Primary Care Provider Reason for Visit * Reason Onset Date Comments Medication Refill 09/30/2021 Encounter Details Date Type Department Care Team (Late st Contact Info) Description 09/30/2021 Refill [facility] [address] [facility] [address] [facility] 2nd [place] [address] Rubin Valderrama, [facility] [address] [place] [phone] Medication Refill Social History Tobacco Use Types [...] any clubs o r organizations such as druze groups, unions, fraternal or athletic groups, or [...] Date Recorded PHQ-2 Total Score 5 09/14/2021 [facility] of Occupat ional [facility] - Occupational Stress Questionnaire Answer Date Recorded [...] today, but unknown at home. Defer to [facility] pharmacy team for antihypertensive management. Current regimen [...] documented as of this encounter Care Teams Marshmallow Maker Relationship Specialty Start Date End Date Deep Pruitt APRN PCP - General 05/22/19 documented as of this encounter
--- OUTSIDE RECORDS SUMMARY | 2024-06-17 13:19 | XMS_ITS | Encounter Summary ---
Author Organization [facility] Address [address] [place] [address] Care Team Providers Care Credit And Collection Manager Name Role Phone [place] med[place] Niko LOPEZ Primary Care Provider Encounter Details Date Type Department Care Team (Late st Contact Info) Description 02/19/2020 Scanned Document [facility] [address] [place], [place] [phone] Arben Fountain, NOLVIA [address] [place] [address] Social History Tobacco Use Types [...] Answer Date Recorded PHQ-2 Score 2 10/02/2019 [facility] of Occupat ional Health - Occupational Stress [...] documented as of this encounter Care Teams Credit And Collection Manager Relationship Specialty Start Date End Date Deep Pruitt APRN PCP - General 05/22/19 documented as of this encounter
--- OUTSIDE RECORDS SUMMARY | 2024-06-17 13:19 | XMS_ITS | Encounter Summary ---
Author Organization [facility] Address [address] [place] [address] Care Team Providers Care Drafting Instructor Name Role Phone Deep Pruitt APRN Primary Care Provider [phone] Reason for Visit * Reason Comments Medication Refill Encounter Details Date Type Department Care Team ([facility] st Contact Info) Description 11/05/[address] [facility] [address] [place] [address] Deep Pruitt APRN [address] [place] [address] Medication Refill Social History Tobacco Use [...] 2 07/07/2020 [facility] of Occupat ional [facility] - Occupational Stress Questionnaire Answer Date Recorded [...] documented as of this encounter Care Teams Drafting Instructor Relationship Specialty Start Date End Date Deep Pruitt APRN PCP - General 05/22/19 documented as of this encounter
--- OUTSIDE RECORDS SUMMARY | 2024-06-17 13:19 | XMS_ITS | Encounter Summary ---
Author Organization [facility] Address [address] [place] [address] Care Team Providers Care I&C Tech Name Role Phone Deep Pruitt APRN Primary Care Provider Reason for Visit * Reason Comments Other Encounter Details Date Type Department Care Team ([facility] Contact Info) Description 01/13/2021 Telephone [facility] [address] [place] [address] Deep Pruitt APRN [address] [place] [address] Other Social History Tobacco Use [...] Date Recorded PHQ-2 Total Score 6 01/12/2021 [facility] of Occupat ional Health - [...] a side effect fromthat medication. Patient utilizes [facility] [address] [place] [address] Patient contact [phone] documented in this encounter Plan of Treatment [...] documented as of this encounter Care Teams I&C Tech Relationship Specialty Start Date End Date Deep Pruitt APRN PCP - General 05/22/19 documented as of this encounter
--- OUTSIDE RECORDS SUMMARY | 2024-06-17 13:19 | XMS_ITS | Encounter Summary ---
Author Organization [employer] Address [address] [facility] 7t [place] [address] Care Team Providers Care City Council Member Name Role Phone Katrin Santoyo MD Primary Care Pro vider Edison Vieira MD Unavailable [phone] Joe Devi MD Unavailable [phone] Reason for Visit * Reason Onset Date Comments FYI 05/22/2024 Encounter Details Date Type Department Care Team (Late st Contact Info) Description 05/22/2024 Telephone [facility] [address] [place], [place] [phone] Katrin Santoyo MD [address] [place], [place] [phone] Social History Tobacco Use Types Packs/Day Years [...] PM EST TC placed to Myrtle at [facility] who confirmed that while pt was doing [...] - 05/22/2024 2:08 PM EST Tc from [employer] [facility] [employer] calling about a pt taking Physical Therapy at home. Calling to report that pt BP was Elevated (144/110) and that pt has not taken his meds prior to BP reading. documented in this encounter Plan of Treatment Upcoming Encounters Date Type Department Care Team (Late st Contact Info) Description 07/02/2024 11:00 AM EST Office Visit [facility] [address] [place] [id number] documented as of this encounter Goals Goal [...] documented as of this encounter Care Teams City Council Member Relationship Specialty Start Date End Date Katrin Santoyo MD [address] [place] [address] PCP - General Internal Medicine 12/13/22 Edison Vieira MD [address] [place] [address] Pulmonary Disease 04/07/24 Joe Devi MD [address] [place] [address] 3rd [place] [address] Gastroenterology 04/07/24 Carito oRche DNP [address] [facility], [address] [place] [address] Nephrology 04/07/24 Interview [employer] 04/11/24 documented as of this encounter
--- OUTSIDE RECORDS SUMMARY | 2024-06-17 13:19 | XMS_ITS | Encounter Summary ---
Author Organization [facility] Address [address] [place] [address] Care Team Providers Care [place] Debeader Name Role Phone SonalDeep Niko LOPEZ Primary Care Provider Reason for Visit * Reason Comments Medication Refill Encounter Details Date Type Department Care Team (Late st Contact Info) Description 01/04/2021 Refill [facility] Nutrition at [address] [address] Zena Hines PA [address] [place] [phone] Medication Refill Social History Tobacco Use [...] Date Recorded PHQ-2 Total Score 0 11/18/2020 [facility] Occupat ional Health - [...] documented as of this encounter Care Teams [place] Debeader Relationship Specialty Start Date End Date Deep Pruitt APRN PCP - General 05/22/19 documented as of this encounter
--- OUTSIDE RECORDS SUMMARY | 2024-06-17 13:19 | XMS_ITS | Encounter Summary ---
Author Organization [facility] Address [address] [place] [address] Care Team Providers Care Operations Officer Name Role Phone Deep Pruitt APRN Primary Care Provider Reason for Visit * Reason Comments Medication Refill Encounter Details Date Type Department Care Team ([facility] st Contact Info) Description 02/01/2021 Refill [facility] [address] [place], [place] [phone] Deep Pruitt APRN [address] [place] [address] Medication Refill Social History Tobacco [...] often do you attend chur ch or baptism services? Never 01/03/2020 Do you belong to [...] Date Recorded PHQ-2 Total Score 6 01/21/2021 [facility] of Occupat ional [...] documented as of this encounter Care Teams Operations Officer Relationship Specialty Start Date End Date Deep Pruitt APRN PCP - General 05/22/19 documented as of this encounter
--- OUTSIDE RECORDS SUMMARY | 2024-06-17 13:19 | XMS_ITS | Encounter Summary ---
Author Organization [facility] [employer] [facility] Address [address] [place] [address] Care Team Providers Care Milk Tester Name Role Phone Deep Pruitt APRN Primary Care Provider Reason for Visit * Reason Onset Date Comments Medication Refill 10/12/2021 Encounter Details Date Type Department Care Team (Late st Contact Info) Description 10/12/2021 Refill [facility] at [address] [facility] [address] [facility] 2nd [place] [address] Taylor Malagon, [facility] [address] [place] [phone] Medication Refill Social History Tobacco Use Types [...] Date Recorded PHQ-2 Total Score 0 10/12/2021 [facility] Occupat ional [facility] - Occupational Stress Questionnaire Answer [...] documented as of this encounter Care Teams Milk Tester Relationship Specialty Start Date End Date Deep Pruitt APRN PCP - General 05/22/19 documented as of this encounter
--- OUTSIDE RECORDS SUMMARY | 2024-06-17 13:19 | XMS_ITS | Encounter Summary ---
Author Organization [facility] Address [address] [place] [address] Care Team Providers Care Recreation Superintendent Name Role Phone Deep Pruitt APRN Primary Care Provider Reason for Visit * Reason Comments Medication Refill Encounter Details Date Type Department Care Team ([facility] st Contact Info) Description 01/29/2021 Refill [facility] [address] [place], [place] [phone] Deep Pruitt APRN [address] [place] [address] Medication Refill Social History Tobacco [...] any clubs o r organizations such as buddhist groups, unions, fraternal or athletic groups, or [...] Date Recorded PHQ-2 Total Score 6 01/21/2021 [facility] of Occupat ional Health - [...] documented as of this encounter Care Teams Recreation Superintendent Relationship Specialty Start Date End Date Deep Pruitt APRN PCP - General 05/22/19 documented as of this encounter
--- OUTSIDE RECORDS SUMMARY | 2024-06-17 13:19 | XMS_ITS | Encounter Summary ---
Author Organization [facility] [employer] and [facility] Address [address] [place] [address] Care Team Providers Care Supervisor Pumping Name Role Phone Deep Pruitt APRN Primary Care Provider Reason for Visit * Reason Onset Date Comments Medication Refill 09/30/2021 Encounter Details Date Type Department Care Team (Late st Contact Info) Description 09/30/2021 Refill [facility] [phone] [facility] 2nd [place] [address] Kaity Harris, COMPUTER LABORATORY TECHNICIAN [address] [place] [phone] Medication Refill Social History Tobacco Use Types [...] Date Recorded PHQ-2 Total Score 5 09/14/2021 [facility] - Occupational Stress Questionnaire Answer [...] as of this encounter Care Teams Supervisor Pumping Relationship Specialty Start Date End Date Deep Pruitt APRN PCP - General 05/22/19 documented as of this encounter
--- OUTSIDE RECORDS SUMMARY | 2024-06-17 13:19 | XMS_ITS | Encounter Summary ---
Author Organization [employer] Address [address] [facility] 7t [place] [address] Care Team Providers Care Pipe Connector Name Role Phone Katrin Santoyo MD Primary Care Pro vider Edison Vieira MD Unavailable [phone] Joe Devi MD Unavailable [phone] Reason for Visit * Reason Onset Date Comments Referral 04/05/2023 Encounter Details Date Type Department Care Team (Late st Contact Info) Description 04/05/2023 Telephone [facility] [address] [place], [place] [phone] Katrin Santoyo MD [address] [place], [place] [phone] Referral Social History Tobacco Use Types Packs/Day [...] Bhardwaj - 04/06/2023 10:27 AM EST Called [facility] for an update and they stated [...] Gastro made on 04/04/2023 sent to [address] [facility], states that they called facility and facility informs that their missing a summary form. Please contact pt at [phone] Uzbek Speaker documented in this encounter Plan of Treatment Upcoming Encounters Date Type Department Care Team (Late st Contact Info) Description 07/02/2024 11:00 AM EST Office Visit [facility] [address] [place] [address] documented as of this encounter Goals Goal [...] documented as of this encounter Care Teams Pipe Connector Relationship Specialty Start Date End Date Katrin Santoyo MD [address] [place] [address] PCP - General Internal Medicine 12/13/22 Edison Vieira MD [address] [place] [address] Pulmonary Disease 04/07/24 Joe Devi MD [address] [facility] 3rd [place] [address] Gastroenterology 04/07/24 Carito Roche DNP [address] [facility], [address] [place] [address] Nephrology 04/07/24 [employer] 04/11/24 documented as of this encounter
--- OUTSIDE RECORDS SUMMARY | 2024-06-17 13:19 | XMS_ITS | Encounter Summary ---
Author Organization [facility] Address [address] [place] [address] Care Team Providers Care Maintenance Painter Apprentice Name Role Phone MemphisDeep medina Niko LOPEZ Primary Care Provider Reason for Visit * Reason Onset Date Comments Medication Refill 09/22/2021 Encounter Details Date Type Department Care Team (Late st Contact Info) Description 09/22/2021 Refill [facility] Nutrition at [address] [address] Zena Hines PA [address] [place] [phone] Medication Refill Social History Tobacco Use [...] Date Recorded PHQ-2 Total Score 5 09/14/2021 [facility] of Occupat ional Health - [...] is no longer seeing Zena Hines at [facility] for DM mangement. Nate, Katrin documented in [...] as of this encounter Care Teams Maintenance Painter Apprentice Relationship Specialty Start Date End Date Deep Pruitt APRN PCP - General 05/22/19 documented as of this encounter
--- OUTSIDE RECORDS SUMMARY | 2024-06-17 13:19 | XMS_ITS | Encounter Summary ---
Author Organization [facility] Address [address] [place] [address] Care Team Providers Care Packing And Final Assembly Supervisor Name Role Phone Deep Pruitt APRN Primary Care Provider Reason for Visit * Reason Comments Other Appointment Encounter Details Date Type Department Care Team ([facility] Contact Info) Description 10/07/2021 Telephone [facility] [address] [place] [address] Deep Pruitt APRN [address] [place] [address] Other; Appointment Social History Tobacco [...] Date Recorded PHQ-2 Total Score 0 10/07/2021 [facility] Occupat ional Health - Occupational [...] after dropped call ,patient has virtual appt [phone] documented in this encounter Plan of Treatment Not on file documented as of this encounter Visit Diagnoses Not on filedocumented in this encounter Additional Health Concerns Infection Onset Date Last Indicated Resolved Time COVID-19 09/29/2021 09/29/2021 10/19/2021 7:19 PM EDT Assessment Noted Time PHQ-9 Depression Total Score: 0 10/08/19 22 1:27 PM EDT documented as of this encounter Care Teams Packing And Final Assembly Supervisor Relationship Specialty Start Date End Date Deep Pruitt APRN PCP - General 05/22/19 documented as of this encounter
--- OUTSIDE RECORDS SUMMARY | 2024-06-17 13:19 | XMS_ITS | Encounter Summary ---
Author Organization [facility] Address [address] [place] [address] Care Team Providers Care High School Director Name Role Phone Deep Pruitt APRN Primary Care Provider Reason for Visit * Reason Comments Medication Refill Encounter Details Date Type Department Care Team ([facility] st Contact Info) Description 11/24/2020 Telephone [facility] [address] [place] [address] Deep Pruitt APRN [address] [place] [address] Medication Refill Social History Tobacco [...] you attend chur ch or caodaism services? Never 01/03/2020 Do you belong to [...] of certain medication. Call back number is [phone] (northern irish speaking) preferred pharmacy is [facility] [place] [address] [address] documented in this encounter Plan [...] documented as of this encounter Care Teams High School Director Relationship Specialty Start Date End Date Deep Pruitt APRN PCP - General 05/22/19 documented as of this encounter
--- OUTSIDE RECORDS SUMMARY | 2024-06-17 13:19 | XMS_ITS | Encounter Summary ---
Author Organization [facility] Address [address] [facility] 7t [place] [address] Care Team Providers Care Nuclear Physics Teacher Name Role Phone Elise Stanford Primary Care Provider [phone] Katrin Santoyo MD Primary Care Pro vider Edison Vieira MD Unavailable [phone] Joe Devi MD Unavailable [phone] Encounter Details Date Type Department Care Team (Latest Contact Info) Description 09/04/2018 Abstract [facility] CONVERSIONS Dental, Provider, DDS Social History [...] Description 07/02/2024 11:00 AM EST Office Visit [facility] [address] [place] [address] documented as of this encounter Visit Diagnoses Not on filedocumented in this encounter Care Teams Nuclear Physics Teacher Relationship Specialty Start Date End Date Elise Stanford FNP PCP - General Family Medicine 11/24/22 12/12/22 Katrin Santoyo MD [address] [place] [address] PCP - General Internal Medicine 12/13/22 Edison Vieira MD [address] [place] [address] Pulmonary Disease 04/07/24 Joe Devi MD [address] 3rd [place] [address] Gastroenterology 04/07/24 Carito Roche DNP [address], [address] [place] [address] Nephrology 04/07/24 [employer] 04/11/24 documented as of this encounter
--- OUTSIDE RECORDS SUMMARY | 2024-06-17 13:19 | XMS_ITS | Encounter Summary ---
Author Organization [facility] Address [address] [place] [address] Care Team Providers Care Wood Die Maker Name Role Phone [place] Niko LOPEZ Primary Care Provider Reason for Visit * Reason Onset Date Comments Medication Refill 10/12/2021 Encounter Details Date Type Department Care Team (Late st Contact Info) Description 10/12/2021 Refill [facility] [address] [place] [address] Cecile Oneal, DMD [address] [place] [address] Medication Refill Social History Tobacco [...] you attend chur ch or restoration services? Never 01/03/2020 Do you belong to [...] Date Recorded PHQ-2 Total Score 0 10/12/2021 [facility] of Occupat ional Health [...] documented as of this encounter Care Teams Wood Die Maker Relationship Specialty Start Date End Date Deep Pruitt APRN PCP - General 05/22/19 documented as of this encounter
--- OUTSIDE RECORDS SUMMARY | 2024-06-17 13:19 | XMS_ITS | Encounter Summary ---
Author Organization [facility] Address [address] [place] [address] Care Team Providers Care Asphalt Screed Operator Name Role Phone Deep Pruitt JOHN Primary Care Provider Reason for Visit * Reason Onset Date Comments Medication Refill 10/12/2021 Encounter Details Date Type Department Care Team (Late st Contact Info) Description 10/12/2021 Refill [facility] Nutrition at [address] [address] Angie Mcghee MD [address] [place] [phone] Medication Refill Social History Tobacco Use Types [...] documented as of this encounter Care Teams Asphalt Screed Operator Relationship Specialty Start Date End Date Deep Pruitt APRN PCP - General 05/22/19 documented as of this encounter
--- OUTSIDE RECORDS SUMMARY | 2024-06-17 13:19 | XMS_ITS | Clinical Summary ---
Author Organization [employer] Address [address] [facility] [address] [place] [address] Care Team Providers Care Stem Roller Or Crusher Operator Name Role Phone Katrin Santoyo MD Primary Care Pro vider Edison Vieira MD Unavailable [phone] Joe Devi MD Unavailable [phone] Allergies Active Allergy Reactions Criticality Noted Date Comments Amlodipine Swelling 03/28/2021 Other reaction(s): Edema Pt develops lower leg swelling Pt develops lower leg swelling Penicillin G Angioedema 12/09/2022 Penicillins Itching Medium 12/10/2018 Medications ziprasidone (Geodon) 80 MG capsule 3 Active traZODone (Desyrel) 150 MG tablet Take 1 to 2 tablets by mouth at bedtime as needed 3 Active HumuLIN R U-500 KWIKPEN 500 UNIT/ML CONCENTRATED injection Inject 135 units under the skin three times daily with meals 3 Active Continuous Blood Gluc Sensor (Dexcom G7 Sensor[place] [facility] [place] Active DULoxetine (Cymbalta) [address] capsuleIndicatio ns: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 Take 1 capsule (60 mg) by mouth in the morning. 90 capsule 1 3 Active Ventolin HFA 108 (90 Base) MCG/ACT inhalerIndicatio ns:Moderate persistent asthma without complication Inhale 2 puffs every 4 (four) hours if needed for wheezing. 18 g 3 3 Active clonazePAM (KlonoPIN) 0.5 MG tablet 1 tab TID 3 Active divalproex (Depakote ER) 500 MG 24 hr tablet Take 2 tablets by mouth at bedtime 3 Active DULoxetine (Cymbalta) [address] capsule TAKE 1 CAPSULE BY MOUTH EVERY DAY IN THE EVENING 3 Active Blood Glucose Monitoring Suppl ([employer]Style [place] Lite) w/Device kitIndications:T ype 2 diabetes mellitus with diabetic nephropathy, with long-term current use of insulin (CMS/[facility]) Use to test blood sugar bid dx dm 1 kit 3 Active calcium carbonate (Tums) 500 MG chewable tabletIndication s:Elevated parathyroid hormone Chew 2 tablets (1,000 mg) Once per day. 180 tablet 4 025 Active cholecalciferol (Vitamin D-3) 50 MCG (2000 UT) tabletIndication s:Elevated parathyroid hormone Take 1 tablet (50 mcg) by mouth Once per day. 90 tablet 1 4 025 Active capsaicin (Capzasin-HP) 0.1 % creamIndications :Chronic radicular lumbar pain Apply thin layer by topical route up to 4 times daily as needed for pain. 45 g 3 4 Active glucose 4 g chewable tablet Chew 4 tablets (16 g) if needed for low blood sugar. 50 tablet 2 4 025 Active omega-3 acid ethyl esters (Lovaza) 1 g capsule Take 2 capsules (2 g) by mouth 2 times daily. 120 capsule 11 4 Active Advair HFA 230-21 MCG/ACT inhalerIndicatio ns:Moderate persistent asthma without complication INHALE 2 PUFFS TWICE DAILY IN THE MORNING AND AT BEDTIME RINSE MOUTH AFTER USING. 12 g 3 4 Active Spiriva Respimat 1.25 MCG/ACT inhalerIndicatio ns:Moderate persistent asthma without complication INHALE 2 PUFFS BY MOUTH EVERY MORNING 4 g 3 4 Active ezetimibe (Zetia) 10 MG tablet TAKE 1 TABLET BY MOUTH EVERY DAY IN THE MORNING 90 tablet 1 4 Active atorvastatin (Lipitor) 80 MG tablet TAKE 1 TABLET BY MOUTH EVERY DAY 90 tablet 1 4 Active Aspirin Low Dose 81 MG chewable tablet CHEW 1 TABLET BY MOUTH EVERY MORNING 90 tablet 1 4 Active amLODIPine (Norvasc) 5 MG tablet TAKE 1 TABLET BY MOUTH EVERY DAY 90 tablet 1 4 Active Alpha-Lipoic Acid 600 MG capsule TAKE 1 CAPSULE BY MOUTH EVERY DAY 30 capsule 5 4 Active febuxostat (Uloric) 40 MG tablet TAKE 1 TABLET BY MOUTH ONCE DAILY 90 tablet 4 Active Ketotifen Fumarate 0.035 % solution PLACE 1 DROP INTO THE AFFECTED EYE(S) TWICE DAILY NEEDED FOR ALLERGIES 5 mL 1 4 Active ammonium lactate (Lac-Hydrin) 12 % lotion Apply 1 Application. topically Once per day. To feet 4 Active ergocalciferol (Vitamin D-2) 1.25 MG (32528 UT) capsule Take 1 capsule by mouth. Every Monday and 4 Active lidocaine (Lidoderm) 5 % patch Apply 1 patch topically Once per day. 12 hours on and 12 hours off 4 Active SSD 1 % cream Apply 1 Application. topically Once per day. 4 Active FreeStyle lancetsIndicatio ns:Type 2 diabetes mellitus with diabetic nephropathy, with long-term current use of insulin (CMS/[facility]) 1 each by Other route before breakfast, before lunch, before evening meal, and at bedtime. Use bid, dx type 2 diabetes 100 each 11 4 Active Alcohol Swabs (B-D SINGLE USE SWABS REGULAR) pads Apply 1 Units topically 4 times daily. 100 each 11 4 Active B-D UF III MINI PEN NEEDLES 31G X 5 MM misc Use as instructed 100 each 11 4 Active FREESTYLE LITE test strip Use to test blood sugar as directed 100 each 11 4 Active carvedilol (Coreg) 25 MG tablet Take by mouth with breakfast and with evening meal. 180 tablet 1 4 Active albuterol (2.5 MG/3ML) 0.083% nebulizer solutionIndicati ons:Moderate persistent asthma without complication Take 3 mL (2.5 mg) by nebulization every 4 (four) hours if needed for wheezing. 75 mL 3 4 025 Active fluticasone (Flonase) 50 MCG/ACT nasal sprayIndications :Nasal congestion Administer 1-2 sprays into each nostril Once per day. Shake gently. Before first use, prime pump. After use, clean tip and replace cap. 16 g 4 025 Active furosemide (Lasix) 40 MG tabletIndication s:Acute kidney injury superimposed on CKD (CMS/HCC) (CMS/HCC),Primar y hypertension Take 1 tablet (40 mg) by mouth Once per day. 90 tablet 4 025 Active naproxen (Naprosyn) 500 MG tablet Take 500 mg by mouth 2 times daily. 4 Active Jardiance 10 MG Take 1 tablet (10 mg) by mouth Once per day. 90 tablet 4 Active gabapentin (Neurontin) 600 MG tablet TAKE 1 TABLET BY MOUTH EVERY MORNING AND TAKE 1/2 TABLET BY MOUTH EVERY EVENING 45 tablet 2 4 Active FT Lubricant Eye Drops 0.5 % ophthalmic solution INSTILL 1 DROP IN EACH EYE NEEDED DRY EYES 30 each 1 5 Active traMADol (Ultram) 50 MG tabletIndication s:Chronic radicular lumbar pain TAKE 1 TABLET BY MOUTH EVERY 8 HOURS NEEDED SEVERE PAIN FOR UP TO 28 DAYS 84 tablet 5 Active Diclofenac Sodium 1 % gelIndications:C hronic radicular lumbar pain APPLY A THIN LAYER (2 GRAMS) TOPICALLY TO AFFECTED AREA(S) THREE TIMES DAILY NEEDED FOR PAIN 100 g 1 5 Active Active Problems Problem Noted Date Diagnosed Date Long-term current use of opiate analgesic 2023 Overview (04/03/2024): Medication: Tramadol 50mg Q8H PRN Indication: chronic radicular lumbar pain Last PIE BOTTOMER Agreement: 04/02/24 Chronic respiratory failure with hypoxia 024 On home oxygen therapy 02/02/2024 Assessment & Plan (04/07/2024 2:01 PM EST): - Continues on 2L oxygen - Followed by [facility] - Dr. Vieira Chest pressure 11/14/2023 [...] lesions. Secondary dental caries 10/23/2023 Fractured dental temple without loss of mat erial 10/23/2023 Alkaline phosphatase elevation 07/27/2023 Diabetes mellitus, labile 06/29/2023 Adrenal adenoma, right 05/18/2023 Type 2 diabetes mellitus wit h stage 3 chronic kidney disease, with long-term current use of insulin 01/23/2023 Assessment & Plan (06/22/2023 12:26 AM EST): -A1C 11.2 -Check blood sugar 1-2 hours after every meal. -Continue use of glucose gel PRN. -Follow up with [facility] 2023. Chronic radicular lumbar pain 01/23/2023 Assessment [...] of multiple topical analgesics after discussion with [facility] Pharmacist - meds sent to pharmacy [...] 2022, f/u appt 01/2023 Dental: Refer pt [facility] on 12/13/22 Moderate persistent asthma 11/07/2022 Overview (11/07/2022): -The Pt saw Pulmonology in [place] 5966605/21/2021 -stable with the use of Advair and [...] Will focus on improving diabetic control Discuss community educator referral at next visit F/u 1 [...] (04/07/2024 2:05 PM EST): - Following with [facility] - CASSIDY Roche - Plan [...] dose to previous rx by Nephrology Referred 11/07/22 F/u 1 month or sooner PRN Microalbuminuric [...] disordered breathing. RECOMMENDATIONS / PLAN : -Current [employer] recommendations for treatment of [...] mmHg, Excellent response to BPAP S on 1710 cm. - Following with [facility] Pulmonology - Dr. Vieira - Encouraged to follow up with specialist regarding DME order and new sleep study PRN Chronic post-traumatic stress disorder (PTSD) Need for home health care 01/01/2019 Overview (11/07/2022): Pt is still in the process of establishing a Visiting Nurse for home care to help manage his multiple medications Hyperlipidemia associated wi th type 2 diabetes mellitus ([facility]) 12/10/2018 Overview (11/07/2022): - LDL 90 01/25/2021 -atorvastatin (LIPITOR) 80 mg tablet started 12/02/2020 - ezetimibe (ZETIA) 10 mg tablet 12/02/2020 Resolved Problems Problem Noted Date Diagnosed Date Resolved Date Atypical chest pain 11/13/2023 11/14/19 24 Assessment & Plan (11/13/2023 1:07 PM EDT): [...] told him that it is not a longterm med. He will fu w PCP next [...] told him that it is not a longterm med. He will fu w PCP next week. 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 01/23/2023 Overview (11/18/2022): -currently on allopurinol (ZYLOPRIM) [...] Encounters Date Type Department Care Team Description 06/11/2024 Telephone [facility] MEDICINE [address] [place] [address] [phone] Emili Cordero RN 06/10/2024 Telephone [facility] [address] [place] [address] [phone] Shirin Albarran MD No Show 06/06/2024 Telephone [facility] [address] [place] [address] [phone] Katrin Santoyo MD FYI 06/06/2024 Telephone [facility] [address] [place] [address] [phone] Katrin Santoyo MD Nurse Triage 06/05/2024 Telephone [facility] MED & PEDS [address] [place], [place] [phone] Gabriela Rea, CASIE Error (VOID this visit) 05/30/2024 Telephone [facility]INE [address] [place] [address] [phone] Katrin Santoyo MD Nurse Triage 05/22/[address] [address] Katrin Santoyo MD FYI 05/17/2024 Refill [facility] [address] [place] [address] Moriah Herbert FNP Chronic radicular lumbar pain 05/17/2024 Refill [facility] [address] [place] [address] [phone] Shanna Henao MD Chronic radicular lumbar pain 05/12/2024 Refill [facility] WALK-IN CENTER [address] [place] [address] Katrin Santoyo MD 04/30/2024 Telephone [facility] [address] [place] [address] [phone] Katrin Santoyo MD Nurse Triage 04/26/2024 Refill [facility] [address] [place] [address] [phone] Katrin Santoyo MD 04/18/2024 Refill [facility] MED & PEDS [address] [place] [address] Katrin Santoyo MD 04/16/2024 Telephone [facility] MEDICINE [address] [place] [phone] Katrin Santoyo MD Request For Order(s) 04/15/2024 Telephone [facility] [address] [place] [address] [phone] Tamiko Bray MA Appointment 04/12/2024 Telephone [facility]INE [address] [place] [address] [phone] Tamiko Bray MA Durable Medical Equipment 04/10/2024 Telephone [facility] [address] [place] [address] [phone] Katrin Santoyo MD Referral; Durable Medical Equipment 04/10/2024 Orders Only GENERIC EXTERNAL DATA DEPARTMENT Provider, Generic External Data 04/09/2024 Telephone [facility] MED[facility]INE [address] [place] [address] [phone] Katrin Santoyo MD 04/08/2024 Orders Only [facility] MED & PEDS [address] [place] [address] Phalen, Moriah, SENIOR NETWORK ADMINISTRATOR Multifocal pneumonia (Primary Dx) 04/07/2024 Refill [facility] P[facility]S [address] [place] [address] Ashen, Moriah, SENIOR NETWORK ADMINISTRATOR Lung infection 04/03/2024 10:15 AM EST Office Visit [address] [address] Phalen, Moriah, SENIOR NETWORK ADMINISTRATOR Multifocal pneumonia (Primary Dx); Acute kidney injury superimposed on CKD (CMS/HCC) ([facility]); Obstructive sleep apnea; On home oxygen therapy; Chronic kidney disease (CKD) stage G3a/A3, moderately decreased glomerular filtration rate (GFR) between 45-59 mL/min/1.73 square meter and albuminuria creatinine ratio greater than 300 mg/g ([facility]); Primary hypertension 04/03/2024 Orders Only GENERIC EXTERNAL DATA DEPARTMENT Provider, Generic External Data 04/03/2024 Travel 04/03/[address] [address] Katrin Santoyo MD FYI 04/03/[address] [address] Sean Danielson MA Chart Prep 04/02/2024 11:00 AM EST Office Visit [address] [address] Moriah Herbert, SENIOR NETWORK ADMINISTRATOR Chronic radicular lumbar pain (Primary Dx); Long-term current use of opiate analgesic 04/02/2024 Travel 04/02/[address] [address] Katrin Santoyo MD callback requested 03/27/2024 Orders Only GENERIC EXTERNAL DATA DEPARTMENT Provider, Generic External Data 03/25/[address] [address] Katrin Santoyo MD callback requested 03/20/2024 Orders Only GENERIC EXTERNAL DATA DEPARTMENT Provider, Generic External Data 03/19/2024 Orders Only [address] [address] Katrin Santoyo MD Type 2 diabetes mellitus with stage 3a chronic kidney disease, with long-term current use of insulin (CMS/HCC) (Primary Dx) from Last 3 Months Immunizations Name Administration [...] Description 07/02/2024 11:00 AM EST Office Visit [facility] [address] [place] [phone] Health Maintenance Due Date Last Done Comments [...] QL NAAT Routine 03/20/2024 11:36 AM EST LIPID PANEL, STANDARD Routine 09/19/2023 1:43 PM EDT Type 2 diabetes mellitus with stage 3a chronic kidney disease, with long-term current use of insulin (CMS/HCC) HEPATITIS PANEL, GENERAL Routine 12/06/2022 10:21 AM EDT Health care maintenance HIV ANTIBODY/ANTIGEN (VT DP) Routine 12/06/2022 10:21 AM EDT PROPHYLAXIS - [...] included. Sodium 140 135 - 145 mmol/L [facility] Potassium 4.9 3.3 - 5.1 mmol/L [facility] Chloride 107 96 - 108 mmol/L [facility] Carbon Dioxide 28 22 - 29 mmol/L [facility] Anion Gap 10(L) 12 - 20 [facility] Urea Nitrogen (BUN) 35(H) 9 - 16 mg/dL [facility] Creatinine, Serum 3.01(H) 0.5 - 1.4 mg/dL [facility] Estimated Glomerular Filt Rate 22 [facility] Comment:Chronic Kidney Disea se: Estimated GFR < 60 mL/min/[id number] Kidney Disease: Estimated GFR < 15 mL/min/1.73m2 Glucose 288(H) 60 - 115 mg/dL [facility] Calcium 9.2 8.4 - 10.2 mg/dL [facility] 04/10/2024 11:5 1 AM EST 04/10/2024 11:58 AM EST us Generic External Data Provider LAB BLOOD ORDERAB LES Final Result [facility] [address] [place] [address] [phone] * Creatinine, Random Urine (04/03/2024 11:51 AM EST) Creatinine, Urine 80.68 mg/dL [facility] 04/03/2024 11:5 1 AM EST 04/03/2024 1:15 PM EST us Generic External Data Provider LAB URINE ORDERAB LES Final Result [facility] [address] [facility] [place] [address] [phone] * XR Chest 2 Views (04/03/2024 11:24 AM EST) Only the most recent of2 resultswithin the time period is included. Anatomical Region Laterality Modality Chest Radiographic Cierra ging 04/03/2024 11:2 4 AM EST Narrative 04/04/2024 11:05 AM EST ?[facility] ?[address] ?[place] [address] ?XRay Report ? Signed ? Patient: Darrel Hagan ?MR#: [id number] ?? [id number] ? : 1970 ?Acct:[id number] ? Age/Sex: 53 / M ?ADM Date: 04/03/24 ? Loc: HO.HHCX ? Attending Dr: Moriah Herbert SENIOR NETWORK ADMINISTRATOR ? Ordering Physician: Moriah Herbert SENIOR NETWORK ADMINISTRATOR ?? Date of Service: 04/03/24 ?? Procedure(s): XR chest 2V ?? Accession Number(s): [id number] ? cc: Moriah Herbert SENIOR NETWORK ADMINISTRATOR ? EXAMINATION: ?? XR CHEST 2 VIEWS [...] DD/ 1124 ? TD/TT: 04/03/24 1136 ? Scouring Pads Supervisor: IAN ? Procedure Note Donnatiter, Image - 04/04/2024 [facility] [address] [place] [address] XRay Report Signed Patient: Darrel HaganMR#: [id number] : 1970Acct:[id number] Age/Sex: 53 / MADM Date: 04/03/24 Loc: .HHX Attending Dr: Moriah Herbert SENIOR NETWORK ADMINISTRATOR Ordering Physician: Moriah Herbert Date of Service: 04/03/24 Procedure(s): XR chest 2V Accession Number(s): [id number] cc: Moriah Herbert EXAMINATION: XR CHEST 2 [...] 04/04/24 1102 DD/ 1124 TD/TT: 04/03/24 1136 Scouring Pads Supervisor: IAN Moriah SEPULVEDAP IMG XR PROCEDURES Final Result * POCT [id number] Urine Drug Screen (04/02/2024 1:31 PM EST) Urine Urine specimen obtained by clean catch procedure / Unknown 04/02/2024 1:31 PM EST Narrative Yecenia Realena, RN - 04/02/2024 1:31 PM EST .UTOX cup Lot#[id number] Exp. 12/25/25 Internal Pass Control us Katrin López MD POINT OF CARE IRAM T ENTER/EDIT ORDERABLES Final Result * (ABNORMAL) Vitamin D 1,25 dihydroxy (03/27/2024 4:01 PM EST) Vit D (1,25-Dihydroxy) Total 17(A) 18 - 72 pg/mL [facility] VITAMIN D (1,25 OH) D3 17 pg/mL [facility] Vitamin D (1,25 OH) D2 <8 pg/mL [facility] Comment:Vitamin D3, 1,25(OH) 2 indicates both endogenousproduction and supplementation. Vitamin D2, 1,25(OH)2is an indicator of exogenous sources, such as diet orsupplementation. Interpretation and therapy are basedon measurement of Vitamin D,1,25(OH)2, Total.This test was developed and its analyticalperformance characteristics have been determinedby [employer] [place], [place].It has not been cleared or approved by the FDA. Thisassay has been validated pursuant to the CLIAregulations and is used for clinical purposes.THIS TEST WAS PERFORMED AT:[email or web address] [place] [id number] HAILE MD,PHD 03/27/2024 4:01 PM EST 03/27/2024 4:01 PM EST us Generic External Data Provider LAB BLOOD ORDERAB LES Final Result [facility] [address] [place] [phone] * Prothrombin Time-INR (03/27/2024 4:01 PM EST) Only the most recent of2 resultswithin the time period is included. Pathologist [facility] Prothrombin Time 11.0 10.9 - 12.4 SEC [facility] INTERNATIONAL NORM RATIO 0.9 0.9 - 1.1 [facility] Comment:INTERNATIONAL NORMAL IZED RATIO (INR) REFERENCE [...] ORDERAB LES Final Result Performing Organization Address [facility] de Phone Number [facility] [address] [place] [address] [phone] * (ABNORMAL) Immunofixation, Serum (03/27/2024 4:01 PM EST) Pathologist [facility] IMMUNOGLOBULIN G 605 600 - 1640 mg/dL [facility] IMMUNOGLOBULIN A 279 47 - 310 mg/dL [facility] Immunoglobulin M 33(A) 50 - 300 mg/dL [facility] Comment:THIS TEST WAS PERFOR MED AT:[email or web address] [place] [id number] ALEXANDER MD Immunofixation Result SEE NOTE [facility] Comment:Faint IgG kappa mono clonal band present. 03/27/2024 4:01 PM EST 03/27/2024 4:01 PM EST us Generic External Data Provider LAB BLOOD ORDERAB LES Final Result Performing Organization Address [facility] de Phone Number [facility] [address] [place] [phone] * (ABNORMAL) Complement Component C3c (03/27/2024 4:01 PM EST) Complement C3 204(A) 82 - 185 mg/dL [facility] Comment:THIS TEST WAS PERFOR MED AT:[email or web address] [address] [phone] ALEXANDER MD 03/27/2024 4:01 PM EST 03/27/2024 4:01 PM EST us Generic External Data Provider LAB BLOOD ORDERAB LES Final Result Performing Organization Address [facility] Co de Phone Number [facility] [address] [place] [phone] * (ABNORMAL) Complement Component C4c (03/27/2024 4:01 PM EST) Complement C4 56(A) 15 - 53 mg/dL [facility] Comment:THIS TEST WAS PERFOR MED AT:[email or web address] [address] [phone] ALEXANDER MD 03/27/2024 4:01 PM EST 03/27/2024 4:01 PM EST us Generic External Data Provider LAB BLOOD ORDERAB LES Final Result Performing Organization Address [facility] Co de Phone Number [facility] [address] [place] [address] [phone] * Phosphate (As Phosphorus) (03/27/2024 4:01 PM EST) Phosphorus 4.0 2.7 - 4.5 mg/dL [facility] 03/27/2024 4:01 PM EST 03/27/2024 4:01 PM EST us Generic External Data Provider LAB BLOOD ORDERAB LES Final Result Performing Organization Address City/[facility]/ZIP Co de Phone Number [facility] [address] [place] [address] [phone] * (ABNORMAL) PTH, Intact Without Calcium (03/27/2024 4:01 PM EST) Parathyroid Hormone, Intact 498.5(H) 8.7 - 77.1 pg/mL [facility] 03/27/2024 4:01 PM EST 03/27/2024 4:01 PM EST us Generic External Data Provider LAB BLOOD ORDERAB LES Final Result [facility] [address] [place] [address] [phone] * (ABNORMAL) Comprehensive Metabolic Panel (03/27/2024 4:01 PM EST) Sodium 136 135 - 145 mmol/L [facility] Potassium 4.8 3.3 - 5.1 mmol/L [facility] Chloride 102 96 - 108 mmol/L [facility] Carbon Dioxide 24 22 - 29 mmol/L [facility] Anion Gap 15 12 - 20 [facility] Urea Nitrogen (BUN) 59(H) 9 - 16 mg/dL [facility] Creatinine, Serum 3.95(H) 0.5 - 1.4 mg/dL [facility] Estimated Glomerular Filt Rate 16 [facility] Comment:Chronic Kidney Disea se: Estimated GFR < 60 mL/min/1.77w1Rhjhas Kidney Disease: Estimated GFR < 15 mL/min/1.73m2 Glucose 502(HH) 60 - 115 mg/dL [facility] Comment:Critical value for t est(s): GLU Results called to and readback by: JUANITO Person calling: BRENDON Date: 03/27/24Time: 174 Calcium 9.2 8.4 - 10.2 mg/dL [facility] Bilirubin, Total 0.1 0.0 - 1.0 mg/dL [facility] Aspartate Amino Transferase 24 5 - 37 U/L [facility] Alanine Aminotransferase 24 0 - 40 U/L [facility] Total Protein 6.2(L) 6.5 - 8.0 g/dL [facility] Albumin Level 2.6(L) 3.5 - 5.0 g/dL [facility] Alkaline Phosphatase 140(H) 39 - 117 U/L [facility] 03/27/2024 4:01 PM EST 03/27/2024 4:01 PM EST Generic External Data Provider LAB BLOOD ORDERAB LES Final Result Performing Organization Address [facility] Co de Phone [facility] [address] [place] [phone] * Immunofixation (CHRISTIANE), Urine (03/27/2024 3:57 PM EST) CHRISTIANE Interpretation [facility] Comment:No monoclonal protei ns detected.The supplier of the testing reagents for this assayhas changed. Detection of small monoclonal proteins mayvary by test system.THIS TEST WAS PERFORMED AT:[email or web address] [address] [id number] ALEXANDER MD 03/27/2024 3:57 PM EST 03/27/2024 4:37 PM EST Generic External Data Provider LAB URINE ORDERAB LES Final Result Performing Organization Address [facility] Co de Phone Number [facility] [address] [place] [phone] * (ABNORMAL) Albumin, Random Urine W/Creatinine (03/27/2024 3:57 PM EST) Creatinine, Urine 65.94 mg/dL [facility] Microalbumin Urine >2,000.0 mg/L [facility] Microalbum Creatinine Ratio Ur 3,033.0(H ) <30 ug/mg cr [facility] Comment:Albumin/Creatinine R atio Reference Ranges: Normal: < 30 ug/mg creatinine Microalbuminuria: 30 - 300 ug/mg creatinineClinical Albuminuria: > 300 ug/mg creatinine 03/27/2024 3:57 PM EST 03/27/2024 4:37 PM EST us Generic External Data Provider LAB URINE ORDERAB LES Final Result [facility] [address] [place] [phone] * (ABNORMAL) CBC auto differential (03/27/2024 3:40 PM EST) White Blood Count 12.3(H) 4.8 - 10.8 X10*3/uL [facility] Red Blood Count 4.57(L) 4.60 - 5.80 X10*6/uL [facility] Hemoglobin 12.7(L) 14.0 - 18.0 g/dl [facility] Hematocrit 40.5(L) 42.0 - 52.0 % [facility] Mean Corpuscular Volume 88.6 80.0 - 98.0 fL [facility] Mean Corpuscular Hemoglobin 27.8 27.0 - 33.0 pg [facility] Mean Corpuscular HGB Conc 31.4 31.0 - 36.0 g/dl [facility] Red Cell Distribution Width 14.4 11.0 - 16.0 % [facility] Platelet Count 402(H) 160 - 400 X10*3/uL [facility] Mean Platelet Volume 12.1 9.4 - 12.4 fL [facility] Neutrophils Percent Auto 68.8 45 - 73 % [facility] Imm Gran Pct Auto 1.1(H) 0.0 - 0.4 % [facility] Lymphocytes Percent Auto 18.6(L) 20 - 40 % [facility] Monocytes Percent Auto 8.6 2 - 11 % [facility] Eosinophils Percent Auto 2.4 0 - 4 % [facility] Basophils Percent Auto 0.5 0 - 2 % [facility] NRBC Pct Auto 0.0 0.0 - 0.2 /100WBC [facility] Neutrophils Absolute Auto 8.4(H) 2.0 - 8.3 x10*3/uL [facility] Imm Gran Abs Auto 0.14(H) 0.00 - 0.03 X10*3/uL [facility] Lymphocytes Absolute Auto 2.3 1.2 - 4.9 X10*3/uL [facility] Monocytes Absolute Auto 1.1 0.1 - 1.2 X10*3/uL [facility] Eosinophils Absolute Auto 0.3 0.0 - 0.4 X10*3/uL [facility] Basophils Absolute Auto 0.1 0.0 - 0.2 X10*3/uL [facility] NRBC Abs Auto 0.000 0.0 - 0.012 X10*3/uL [facility] 03/27/2024 3:40 PM EST 03/27/2024 4:52 PM EST us Generic External Data Provider LAB BLOOD ORDERAB LES Final Result [facility] [address] [place] [phone] * (ABNORMAL) Hemoglobin A1c (03/27/2024 3:40 PM EST) Hemoglobin A1c 12.5(H) <6.0 % [facility] Comment:Hemoglobin A1C Refer ence Range Adults: 4.8 - 6.0 % Non diabetic: < 6.0 % Goal: < 7.0 %Additional Action Suggested: > 8.0 %Note: Hemoglobin A1c results are invalid for patients with abnormal amounts of HbF. Blood transfusions may impact the HbA1c concentration in the patient sample. Estimated Average Glucose 312 mg/dL [facility] Comment:eAG = Estimated ave rage glucose which is %A1C expressed asaverage glucose, using the formula of the I9Z-HinrmckBzwfuit Glucose study (ADAG), Diabetes Care, Vol.31,#8,2007 03/27/2024 3:40 PM EST 03/27/2024 6:33 PM EST us Generic External Data Provider LAB BLOOD ORDERAB LES Final Result [facility] [address] [place] [phone] * US RENAL BI (03/25/2024 1:17 PM EST) Anatomical Region Laterality Modality Abdomen Ultrasound 03/25/2024 1:17 PM EST Narrative 03/25/2024 5:19 PM EST ? [facility] ?[address] ?[place] [address] ? Ultrasound Report ? Signed ? Patient: Benton BirminghamDarrel lamb ?MR#: [id number] ?? [id number] ? : 1970 ?Acct:[id number] ? Age/Sex: 53 / M ?ADM Date: 03/20/24 ? Loc: HO.[facility] ?470-1 ? Attending Dr: Renetta Chawla MD ? Ordering Physician: Carito Roche DNP, FNP-BC ?? Date of Service: 03/25/24 ?? Procedure(s): US renal BI ?? Accession Number(s): [id number] ? cc: Carito Roche DNP, FNP-BC; Katrin [...] DD/ 1317 ? TD/TT: 03/25/24 1331 ? Scouring Pads Supervisor: IAN ? Procedure Note Donotuseinterpreter, Image - 03/25/[address] [address] Ultrasound Report Signed Patient: Darrel HaganMR#: [id number] : 1970Acct:[id number] Age/Sex: 53 / MADM Date: 03/20/24 Loc: [facility] 470-[address]: Renetta Chawla MD Ordering Physician: Carito Roche DNP, FNP-BC Date of Service: 03/25/24 Procedure(s): US renal BI Accession Number(s): [id number] cc: Carito Roche DNP, FNP-BC; Katrin Santoyo [...] 03/25/24 1716 DD/ 1317 TD/TT: 03/25/24 1331 Scouring Pads Supervisor: IAN us [facility] External Provider IMG US PROCEDURES Final Result * (ABNORMAL) Glucose, Whole Blood (03/20/2024 3:43 PM EST) Only the most recent of2 resultswithin the time period is included. Pathologist [facility] Glucose, Whole Blood 460(HH) 60 - 115 mg/dL [facility] Comment:METER #: [id number] 03/20/2024 3:43 PM EST 03/20/2024 3:46 PM EST Generic External Data Provider LAB BLOOD ORDERAB LES Final Result [facility] [address] [place] [phone] * (ABNORMAL) VENOUS BLOOD GAS (03/20/2024 1:06 PM EST) [facility] VBG pH 7.27(L) 7.32 - 7.43 [facility] Comment:METER #: [id number] additional_comment: Cb rodirisa VBG PCO2 55 mmHg [facility] Comment:METER #: [id number] additional_comment: Cb rodirisa VBG PO2 53 mmHg [facility] Comment:METER #: [id number] additional_comment: Cb rodirisa VBG Base Excess -1.6 mmol/L [facility] Comment:METER #: [id number] additional_comment: Cb rodirisa VBG HCO3 26 22 - 26 mmol/L [facility] Comment:METER #: [id number] additional_comment: Cb rodirisa O2 Sat, Rashad 76.0 % [facility] Comment:METER #: [id number] additional_comment: Cb rodirisa 03/20/2024 1:06 PM EST 03/20/2024 1:10 PM EST us Generic External Data Provider LAB BLOOD ORDERAB LES Final Result Performing Organization Address [facility] Co de Phone Number [facility] [address] [place] [address] [phone] * Partial Thromboplastin Time, Activated (APTT) (03/20/2024 12:58 PM EST) Partial Thromboplastin Time 31.7 26.0 - 36.8 SEC [facility] Comment:For information rega rding the monitoring of direct thrombininhibitors, please refer to Pharmacy. 03/20/2024 12:5 8 PM EST 03/20/2024 1:06 PM EST us Generic External Data Provider LAB BLOOD ORDERAB LES Final Result Performing Organization Address [facility] Co de Phone Number [facility] [address] [place] [phone] * Lactic Acid (03/20/2024 12:58 PM EST) Lactic Acid 1.7 0.5 - 2.0 mmol/L [facility] 03/20/2024 12:5 8 PM EST 03/20/2024 1:06 PM EST Generic External Data Provider LAB BLOOD ORDERAB LES Final Result Performing Organization Address [facility] Co de Phone Number [facility] [address] [place] [address] [phone] * (ABNORMAL) Hepatic Function Panel (03/20/2024 12:58 PM EST) Bilirubin, Total 0.3 0.0 - 1.0 mg/dL [facility] Bilirubin, Direct 0.1 0.0 - 0.5 mg/dL [facility] Aspartate Amino Transferase 16 5 - 37 U/L [facility] Alanine Aminotransferase 11 0 - 40 U/L [facility] Total Protein 5.9(L) 6.5 - 8.0 g/dL [facility] Albumin Level 2.4(L) 3.5 - 5.0 g/dL [facility] Alkaline Phosphatase 128(H) 39 - 117 U/L [facility] 03/20/2024 12:5 8 PM EST 03/20/2024 1:15 PM EST Generic External Data Provider LAB BLOOD ORDERAB LES Final Result Performing Organization Address [facility] de Phone Number [facility] [address] [place] [phone] * High Sensitivity Troponin I (03/20/2024 11:36 AM EST) Pathologist [facility] TROPONIN I HIGH SENSITIVITY 12.8 <3.5 - 35.0 ng/L [facility] Comment:The [facility] high sens itivity Troponin-I results should beused in conjunction with other diagnostic information suchas ECG, clinical observations and information, and patientsymptoms to aid in the diagnosis of [place]. 03/20/2024 11:3 6 AM EST 03/20/2024 11:39 AM EST Generic External Data Provider LAB BLOOD ORDERAB LES Final Result Performing Organization Address [facility] de Phone Number [facility] [address] [place] [phone] * (ABNORMAL) Complete Blood Count Manual Diff (03/20/2024 11:36 AM EST) White Blood Count 24.9(H) 4.8 - 10.8 X10*3/uL [facility] Red Blood Count 4.63 4.60 - 5.80 X10*6/uL [facility] Hemoglobin 13.1(L) 14.0 - 18.0 g/dl [facility] Hematocrit 41.4(L) 42.0 - 52.0 % [facility] Mean Corpuscular Volume 89.4 80.0 - 98.0 fL [facility] Mean Corpuscular Hemoglobin 28.3 27.0 - 33.0 pg [facility] Mean Corpuscular HGB Conc 31.6 31.0 - 36.0 g/dl [facility] Red Cell Distribution Width 14.6 11.0 - 16.0 % [facility] Platelet Count 290 160 - 400 X10*3/uL [facility] Mean Platelet Volume 12.9(H) 9.4 - 12.4 fL [facility] NRBC Pct Auto 0.0 0.0 - 0.2 /100WBC [facility] NRBC Abs Auto 0.000 0.0 - 0.012 X10*3/uL [facility] Neutrophils % Manual 80(H) 45 - 73 % [facility] Band Neutrophils Percent 5 3 - 5 % [facility] Lymphocytes Percent Manual 6(L) 20 - 40 % [facility] Monocytes Percent Manual 7 2 - 11 % [facility] EOSINOPHILS % MANUAL 1 0 - 4 % [facility] BASOPHILS % MANUAL 1 0 - 2 % [facility] NEUTROPHILS ABSOLUTE MANUAL 21.2(H) 2.0 - 8.3 X10*3/uL [facility] LYMPHOCYTES ABSOLUTE MANUAL 1.5 1.2 - 4.9 X10*3/uL [facility] MONOCYTES ABSOLUTE MANUAL 1.7(H) 0.1 - 1.2 X10*3/uL [facility] EOSINOPHILS ABSOLUTE MANUAL 0.2 0.0 - 0.4 X10*3/uL [facility] BASOPHILS ABSOLUTE MANUAL 0.2 0.0 - 0.2 X10*3/uL [facility] Platelet Estimate NORMAL NORMAL [facility] Platelet Morphology Comment NORMAL [facility] RBC Morphology NORMAL [facility] 03/20/2024 11:3 6 AM EST 03/20/2024 11:39 AM EST us Generic External Data Provider LAB BLOOD ORDERAB LES Final Result Performing Organization Address [facility] Co de Phone Number [facility] [address] [place] [phone] * SARS-CoV-2 RNA, Influenza A/B, and RSV RNA, Ql NAAT (03/20/2024 11:36 AM EST) Influenza A PCR NEGATIVE Negative [facility] Influenza B PCR NEGATIVE Negative [facility] Resp Syncy Virus RNA Qual PCR NEGATIVE Negative [facility] SARS COV2 PCR NEGATIVE Negative [facility] Comment:All test results mus t be [...] use by authorized laboratories.Testing performed on the [employer] GeneXpert utilizingreal-time RT-PCR.All SARS CoV2 and positive influenza A/B results arereported to [facility]. 03/20/2024 11:3 6 AM EST 03/20/2024 11:39 AM EST Generic External Data Provider LAB MICROBIOLOGY - GENERAL ORDERABLES Final Result Performing Organization Address [facility] Co de Phone Number [facility] [address] [place] [phone] * (ABNORMAL) Lipid Panel, Standard (09/19/2023 1:43 PM EDT) Triglycerides 316(H) <150 mg/dL [facility] Comment:Desirable Triglyceri de: less than 150 mg/dLBorderline High Triglyceride 150-199 mg/dLHigh Triglyceride: 200-499 mg/dLVery High Triglyceride: greater than or equal to 5OO mg/dL Cholesterol 164 <200 mg/dL [facility] Comment:Desirable Cholestero l: less than 200 mg/dLBorderline High Cholesterol: 200-239 mg/dLHigh Cholesterol: greater than 239 mg/dL LDL Cholesterol Calculated 60 <100 mg/dL [facility] Comment:Desirable LDL: less than 100 mg/dLNear Optimal/Above Optimal LDL: 110- 129 mg/dLBorderline High LDL: 130-159 mg/dLHigh LDL: 160-189 mg/dLVery High LDL: greater than or equal to 190 mg/dL HDL Cholesterol 41 >40 mg/dL [facility] Comment:Desirable HDL: great er than 40 mg/dL Note: This HDL assay may give artificially low results in patients with liver disease. Blood Venous blood specimen / Unknown 09/19/2023 1:43 PM EDT 09/19/2023 3:53 PM EDT Katrin López MD LAB BLOOD ORDERAB LES Final Result [facility] [address] [place] [address] [phone] * HIV Ab/Ag ([facility]) (12/06/2022 10:21 AM EDT) [facility] HIV AB/AG Nonreactive Nonreactive [facility] Comment:HIV-1 p24 Ag and/or HIV-1/HIV-2 Ab not detected.A test result that is nonreactive does not exclude thepossibility of exposure to or infection with HIV-1 and/orHIV-2. Nonreactive results in this assay for individualswith prior exposure to HIV-1 and/or HIV-2 may be due toantigen and antibody levels that are below the limit ofdetection of this assay.The [employer] Supervisor [employer] HIV Ag/Ab Combo assay result andsupplemental assay results should be interpreted inconjunction with the patient's clinical presentation,history and other laboratory results. If the results areinconsistent with clinical evidence, additional testing issuggested to confirm the result. 12/06/2022 10:2 1 AM EDT 12/06/2022 11:17 AM EDT Elise Stanford SENIOR NETWORK ADMINISTRATOR LAB BLOOD ORDERABLES Final Result Performing Organization Address [facility] Co de Phone Number [facility] [address] [place] [phone] * Hepatitis Panel, General (12/06/2022 10:21 AM EDT) Hepatitis A IgM Nonreactive Nonreactive [facility] Comment:IgM antibodies to [place] V not detected; does not exclude earlyacute or recovered HAV infection. ~Hepatitis B Surface Antibody REACTIVE Nonreactive [facility] Comment:REACTIVE: > 11.99 mI U/mL Hepatitis B Core Antibody Nonreactive Nonreactive [facility] Hepatitis C Antibody Nonreactive Nonreactive [facility] Comment:Antibodies to HCV no t detected; does not exclude early acuteHCV infection. Hepatitis B Surface Ag Negative Negative [facility] Blood 12/06/2022 10:2 1 AM EDT 12/06/2022 11:17 AM EDT Elise Stanford SENIOR NETWORK ADMINISTRATOR LAB BLOOD ORDERABLES Final Result Performing Organization Address [facility] de Phone Number [facility] [address] [place] [phone] from Last 3 Months or Most Recently Relevant to Health Maintenance Insurance [facility] AD[place] Care Teams Stem Roller Or Crusher Operator Relationship Specialty Start Date End Date Katrin Santoyo MD [address] [place] [phone] PCP - General Internal Medicine 12/13/22 Edison Vieira MD [address] [place] [address] Pulmonary Disease 04/07/24 Joe Devi MD [address] [facility] 3rd [place] [address] Gastroenterology 04/07/24 Carito Roche DNP [address] [facility], [address] [place] [address] Nephrology 04/07/24 [place] 04/11/24
--- OUTSIDE RECORDS SUMMARY | 2024-06-17 13:19 | XMS_ITS | Encounter Summary ---
Author Organization [facility] Address [address] [place] [address] Care Team Providers Care Boil Off Machine Operator Cloth Name Role Phone Deep Pruitt APRN Primary Care Provider [phone] Encounter Details Date Type Department Care Team ([facility] st Contact Info) Description 11/14/2020 Scanned Document [facility] [address] [place], [place] [phone] Deep Pruitt APRN [address] [place] [address] Social History Tobacco Use Types [...] Date Recorded PHQ-2 Total Score 0 11/18/2020 [facility] [...] documented as of this encounter Care Teams Boil Off Machine Operator Cloth Relationship Specialty Start Date End Date Deep Pruitt APRN PCP - General 05/22/19 documented as of this encounter
--- OUTSIDE RECORDS SUMMARY | 2024-06-17 13:19 | XMS_ITS | Encounter Summary ---
Author Organization [employer] Address [address] [facility] 7t [place] [address] Care Team Providers Care Gas Transfer Operator Name Role Phone Elise Stanford BALE SEWER Primary Care Provider [phone] Katrin Santoyo MD Primary Care Pro vider Edison Vieira MD Unavailable [phone] Joe Devi MD Unavailable [phone] Encounter Details Date Type Department Care Team (Late st Contact Info) Description 12/06/2022 Telephone [facility] [address] [place] [address] Susan Manzano LPN Social History Tobacco Use [...] Critical result line call from Damaris with [facility]. Patient glucose reported as 411 today. Triage call to follow with patient. Please update PCP with critical result. documented in this encounter Plan of Treatment Upcoming Encounters Date Type Department Care Team (Late st Contact Info) Description 07/02/2024 11:00 AM EST Office Visit [facility] [address] [place] [address] documented as of this encounter Visit Diagnoses Not on filedocumented in this encounter Additional Health Concerns Assessment Noted Time PHQ-9 Depression Total Score: 023 2:05 PM EDT documented as of this encounter Care Teams Gas Transfer Operator Relationship Specialty Start Date End Date Elise Stanford FNP PCP - General Family Medicine 11/24/22 12/12/22 Katrin Santoyo MD [address] [place] [address] PCP - General Internal Medicine 12/13/22 Edison Vieira MD [address] [place] [address] Pulmonary Disease 04/07/24 Joe Devi MD [address] [facility] 3rd [place] [address] Gastroenterology 04/07/24 Carito Roche DNP [address] [facility], [address] [place] [address] Nephrology 04/07/24 [facility] 04/11/24 documented as of this encounter
--- OUTSIDE RECORDS SUMMARY | 2024-06-17 13:19 | XMS_ITS | Encounter Summary ---
Author Organization [facility] Address [address] [place] [address] Care Team Providers Care Computer Network Support Specialist Name Role Phone Deep Pruitt APRN Primary Care Provider Reason for Visit * Reason Comments Medication Problem Encounter Details Date Type Department Care Team ([facility] Contact Info) Description 10/11/2021 Telephone [facility] [address] [place] [address] Deep Pruitt APRN [address] [place] [address] Medication Problem Social History Tobacco [...] Date Recorded PHQ-2 Total Score 0 10/12/2021 [facility] - Occupational [...] 08 of October Spoke to sissy via plate stacker #[id number] (patti) patient states she spoke to the [...] if patient medication can be [facility] [place] [facility] [address] . Best contact: [phone] documented in this encounter Plan of Treatment Not on file documented as of this encounter Visit Diagnoses Not on filedocumented in this encounter Additional Health Concerns Infection Onset Date Last Indicated Resolved Time COVID-19 09/29/2021 09/29/2021 10/19/2021 7:19 PM EDT Assessment Noted Time PHQ-9 Depression Total Score: 0 10/08/19 22 1:27 PM EDT documented as of this encounter Care Teams Computer Network Support Specialist Relationship Specialty Start Date End Date Deep Pruitt APRN PCP - General 05/22/19 documented as of this encounter
--- OUTSIDE RECORDS SUMMARY | 2024-06-17 13:19 | XMS_ITS | Encounter Summary ---
Author Organization [facility] [employer] [facility] Address [address] [place] [phone] Care Team Providers Care Machine Ii Engraver Name Role Phone Deep Pruitt APRN Primary Care Provider Reason for Visit * Reason Onset Date Comments Medication Refill 09/22/2021 Encounter Details Date Type Department Care Team (Late st Contact Info) Description 09/22/2021 Refill [facility] [address] [phone] [facility] 2nd [place] [address] Kaity Harris, ALLERGY SPECIALIST [address] [place] [phone] Medication Refill Social History Tobacco Use Types [...] Total Score 5 09/14/2021 [facility] - [facility]ational Stress Questionnaire Answer Date [...] documented as of this encounter Care Teams Machine Ii Engraver Relationship Specialty Start Date End Date Deep Pruitt APRN PCP - General 05/22/19 documented as of this encounter
--- OUTSIDE RECORDS SUMMARY | 2024-06-17 13:21 | XMS_ITS | Encounter Summary ---
Author Organization [facility] Address [address] [place] [address] Care Team Providers Care Log Chain Feeder Name Role Phone Deep Pruitt APRN Primary Care Provider Reason for Visit * Reason Comments Medication Refill Encounter Details Date Type Department Care Team ([facility] st Contact Info) Description 09/16/2021 Refill [facility] [address] [place] [address] Deep Pruitt APRN [address] [place] [address] Medication Refill Social History Tobacco Use [...] Date Recorded PHQ-2 Total Score 5 09/14/2021 [facility] of Occupat ional [...] documented as of this encounter Care Teams Log Chain Feeder Relationship Specialty Start Date End Date Deep Pruitt APRN PCP - General 05/22/19 documented as of this encounter
--- OUTSIDE RECORDS SUMMARY | 2024-06-17 13:21 | XMS_ITS | Encounter Summary ---
Author Organization [facility] Address [address] [place] [address] Care Team Providers Care Fnp Name Role Phone Romelia Pruittian Niko LOPEZ Primary Care Provider Encounter Details Date Type Department Care Team (Late st Contact Info) Description 09/06/2021 Scanned Document [facility] [address] [place] [address] External, Provider Social History Tobacco Use Types [...] Date Recorded PHQ-2 Total Score 2 09/08/2021 [facility] of [...] documented as of this encounter Care Teams Fnp Relationship Specialty Start Date End Date Deep Pruitt APRN PCP - General 05/22/19 documented as of this encounter
--- OUTSIDE RECORDS SUMMARY | 2024-06-17 13:21 | XMS_ITS | Encounter Summary ---
Author Organization [facility] Address [address] [place] [address] Care Team Providers Care Winding Inspector Name Role Phone Deep Pruitt APRN Primary Care Provider Reason for Visit * Reason Comments Medication Refill Encounter Details Date Type Department Care Team ([facility] st Contact Info) Description 11/11/2020 Refill [facility] [address] [place] [address] Deep Pruitt APRN [address] [place] [phone] Medication Refill Social History Tobacco Use [...] any clubs o r organizations such as mandaen groups, unions, fraternal or athletic groups, or [...] Answer Date Recorded PHQ-2 Score 2 07/07/2020 [facility] Occupat ional [facility] - Occupational Stress Questionnaire Answer Date [...] documented as of this encounter Care Teams Winding Inspector Relationship Specialty Start Date End Date Deep Pruitt APRN PCP - General 05/22/19 documented as of this encounter
--- OUTSIDE RECORDS SUMMARY | 2024-06-17 13:21 | XMS_ITS | Encounter Summary ---
Author Organization [facility] Address [address] [place] [address] Care Team Providers Care Websphere Portal Developer Name Role Phone Deep Pruitt APRN Primary Care Provider [phone] Reason for Visit * Reason Comments Medication Refill Encounter Details Date Type Department Care Team ([facility] st Contact Info) Description 10/20/2020 Refill [facility] [address] [place], [place] [phone] Deep Pruitt APRN [address] [place] [address] Medication Refill Social History Tobacco [...] Answer Date Recorded PHQ-2 Score 2 07/07/2020 [facility] of Occupat ional [...] documented as of this encounter Care Teams Websphere Portal Developer Relationship Specialty Start Date End Date Deep Pruitt APRN PCP - General 05/22/19 documented as of this encounter
--- OUTSIDE RECORDS SUMMARY | 2024-06-17 13:21 | XMS_ITS | Encounter Summary ---
Author Organization [facility] Address [address] [place] [address] Care Team Providers Care Appliance Repairer Name Role Phone Deep Pruitt APRN Primary Care Provider Reason for Visit * Reason Comments Other Advice Only Encounter Details Date Type Department Care Team ([facility] Contact Info) Description 09/28/2021 [facility] [address] [place] [address] Deep Pruitt APRN [address] [place] [address] Other; Advice Only Social History [...] be given because his underlying condition. Patient [phone] documented in this encounter Plan of Treatment Not on file documented as of this encounter Visit Diagnoses Not on filedocumented in this encounter Additional Health Concerns Infection Onset Date Last Indicated Resolved Time COVID-19 09/29/2021 09/29/2021 10/19/2021 7:19 PM EDT Assessment Noted Time PHQ-9 Depression Total Score: 7 09/15/19 22 10:31 AM EDT documented as of this encounter Care Teams Appliance Repairer Relationship Specialty Start Date End Date Deep Pruitt APRN PCP - General 05/22/19 documented as of this encounter
--- OUTSIDE RECORDS SUMMARY | 2024-06-17 13:21 | XMS_ITS | Encounter Summary ---
Author Organization [facility] [employer] [facility] Address [address] [place] [address] Care Team Providers Care Electromechanisms Design Drafter Name Role Phone Deep Pruitt APRN Primary Care Provider [phone] Encounter Details Date Type Department Care Team (Latest Contact Info) Description 09/13/2021 Transcribed Orders [facility] Spec[facility] [address] [place] [address] Deep Pruitt APRN [address] [place] [address] Encounter for routine screening for [...] Date Recorded PHQ-2 Total Score 5 09/14/2021 [facility] Occupat ional Health [...] - 3.900 ng/mL 09/13/2021 1:44 PM EDT [facility] MEDICINE Prostate Specific Antigen, Free (YH) 0.28 0.00 - 3.90 ng/mL 09/13/2021 1:44 PM EDT [facility]IC[facility] Comment:Prostate Specific An tigen, Free Percentage can not be calculated. PSA, Total value out of appropriate range. Blood Venipuncture / Unknown 09/09/2021 12:05 PM EDT 09/13/2021 10:48 AM EDT Narrative [facility] MEDICINE - 09/13/2021 1:44 [...] Pruitt APRN LAB BLOOD ORDERABLES Final Result [facility]ICINE [address] [place] [address] documented in this encounter Visit Diagnoses Diagnosis [...] documented as of this encounter Care Teams Electromechanisms Design Drafter Relationship Specialty Start Date End Date Deep Pruitt APRN PCP - General 05/22/19 documented as of this encounter
--- OUTSIDE RECORDS SUMMARY | 2024-06-17 13:21 | XMS_ITS | Encounter Summary ---
Author Organization [facility] Address [address] [place] [address] Care Team Providers Care Drug Safety Scientist Name Role Phone Deep Pruitt APRN Primary Care Provider Reason for Visit * Reason Comments Medication Refill Encounter Details Date Type Department Care Team ([facility] st Contact Info) Description 09/23/2020 Refill [facility] [address] [place] [address] Deep Pruitt APRN [address] [place] [phone] Medication Refill Social History Tobacco Use [...] Answer Date Recorded PHQ-2 Score 2 07/07/2020 [facility] of Occupat ional [facility] - Occupational Stress Questionnaire Answer Date Recorded [...] documented as of this encounter Care Teams Drug Safety Scientist Relationship Specialty Start Date End Date Deep Pruitt APRN PCP - General 05/22/19 documented as of this encounter
--- OUTSIDE RECORDS SUMMARY | 2024-06-17 13:21 | XMS_ITS | Encounter Summary ---
Author Organization [facility] Address [address] [place] [address] Care Team Providers Care Forensic Pathologist Name Role Phone Deep Pruitt APRN Primary Care Provider Encounter Details Date Type Department Care Team (Latest Contact Info) Description 09/09/2021 Transcribed Orders [facility] [address] [place] [address] Deep Pruitt APRN [address] [place] [address] Encounter for routine screening for [...] 2 09/08/2021 [facility] - Occupational Stress Questionnaire Answer Date [...] Orde r Schedule TSH w/reflex to FT4 ([facility] LMW Q YH) Lab Routine Encounter for [...] health care facility TSH W/REFLEX TO FT4 ([facility] LMW Q YH) Routine 09/09/2021 12:05 PM [...] general medical examination at a [facility] care facility ALBUMIN/CREATININE PANEL, URINE, RANDOM Routine 09/09/2021 11:01 AM EDT Encounter for routine screening for malformation using ultrasonics Special screening for malignant neoplasm of prostate Routine general medical examination at a [facility] care facility CBC WITH AUTO DIFFERENTIAL Routine 09/09/2021 10:58 AM EDT Encounter for routine screening for malformation using ultrasonics Special screening for malignant neoplasm of prostate Routine general medical examination at a [facility] care facility CBC AND DIFFERENTIAL Routine 09/09/2021 10:58 AM EDT Encounter for routine screening for malformation using ultrasonics Special screening for malignant neoplasm of prostate Routine general medical examination at a [facility] care facility HEMOGLOBIN A1C Routine 09/09/2021 10:58 AM EDT Encounter for routine screening for malformation using ultrasonics Special screening for malignant neoplasm of prostate Routine general medical examination at a health care facility documented in this encounter Results * PSA, total and free (09/09/2021 12:05 PM EDT) Prostate Specific Antigen, Total (YH) 0.578 0.000 - 3.900 ng/mL 09/13/2021 1:44 PM EDT [facility] MEDICINE Prostate Specific Antigen, Free (YH) 0.28 0.00 - 3.90 ng/mL 09/13/2021 1:44 PM EDT [facility] MEDICINE Comment:Prostate Specific An tigen, Free Percentage can not be calculated. PSA, Total value out of appropriate range. Blood Venipuncture / Unknown 09/09/2021 12:05 PM EDT 09/13/2021 10:48 AM EDT Narrative [facility] DEPARTMENT OF LABORATORY MEDICINE - 09/13/2021 1:44 [...] in the 2-4 ng/mL range. Deep Pruitt [facility] LAB BLOOD ORDERABLES Final Result Performing Organization Address City/State/[facility] Co de Phone Number [facility] DEPARTMENT OF LABORATORY MEDICINE [address] [place] [address] * (ABNORMAL) Comprehensive metabolic panel (09/09/2021 12:05 PM EDT) Sodium 140 136 - 144 mmol/L 09/09/2021 2:42 PM EDT [facility] Potassium 4.9 3.3 - 5.3 mmol/L 09/09/2021 2:42 PM EDT [facility] Chloride 101 98 - 107 mmol/L 09/09/2021 2:42 PM EDT [facility] CO2 27 20 - 30 mmol/L 09/09/2021 2:42 PM EDT [facility] Anion Gap 12 7 - 17 09/09/2021 2:42 PM EDT [facility] Glucose 148(H) 70 - 100 mg/dL 09/09/2021 2:42 PM EDT [facility] BUN 31(H) 6 - 20 mg/dL 09/09/2021 2:42 PM EDT [facility] Creatinine 1.40(H) 0.40 - 1.30 mg/dL 09/09/2021 2:42 PM EDT [facility] Calcium 9.5 8.8 - 10.2 mg/dL 09/09/2021 2:42 PM T [facility] BUN/Creatinine Ratio 22.1 8.0 - 23.0 0509/2021 2:42 PM EDT [facility] Total Protein 6.4(L) 6.6 - 8.7 g/dL 09/09/2021 2:42 PM EDT [facility] Albumin 3.6 3.6 - 4.9 g/dL 09/09/2021 2:42 PM T [facility] Total Bilirubin 0.2 <=1.2 mg/dL 09/09/2021 2:42 PM T [facility] Alkaline Phosphatase 135(H) 9 - 122 U/L 09/09/2021 2:42 PM T [facility] Alanine Aminotransferase (ALT) 40 9 - 59 U/L 09/09/2021 2:42 PM T [facility] Comment:Calcium dobesilate c an cause artificially low ALT results at therapeutic concentrations Aspartate Aminotransferase (AST) 33 10 - 35 U/L 09/09/2021 2:42 PM T [facility] Globulin 2.8 2.3 - 3.5 g/dL 09/09/2021 2:42 PM T [facility] A/G Ratio 1.3 1.0 - 2.2 09/09/2021 2:42 PM T [facility] AST/ALT Ratio 0.8 See Comment 09/09/2021 2:42 PM T [facility] Comment: Adult with mild [...] >60 mL/min/1.7 3m2 09/09/2021 2:42 PM EDT [facility] Comment: Values under 60mL/min/1.73m2 may indicate CKD if noted for ?? more than 3 months. eGFR is only valid if creatinine is at steady state. eGFR (NON -Guamanian) 53 >60 mL/min/1.7 3m2 09/09/2021 2:42 PM EDT [facility] Comment: Values under 60mL/min/1.73m2 may indicate CKD if noted for ?? more than 3 months. eGFR is only valid if creatinine is at steady state. Blood Venipuncture / Unknown 09/09/2021 12:05 PM EDT 09/09/2021 12:05 PM EDT Deep Pruitt [facility] LAB BLOOD ORDERABLES Final Result Performing Organization Address City/[facility]/ZIP Co de Phone Number [facility] [address] [place] [address] * TSH w/reflex to FT4 ( [facility] LMW Q YH) (09/09/2021 12:05 PM EDT) Thyroid Stimulating Hormone 3.640 See Comment ??IU/mL 09/09/2021 2:42 PM EDT [facility] Comment: Male & Non- Females: 0.270-4.200 ??IU/mL 1st Trimester: 0.110-3.480 ??IU/mL 2nd Trimester: 0.320-3.850 ??IU/mL Blood Venipuncture / Unknown 09/09/2021 12:05 PM EDT 09/09/2021 12:05 PM EDT Deep Pruitt [facility] LAB BLOOD ORDERABLES Final Result Performing Organization Address City/[facility]/ZIP Co de Phone Number [facility] [address] [place] [address] * LDL cholesterol, direct (09/09/2021 12:05 PM EDT) LDL Direct 63 See Comment mg/dL 09/09/2021 2:41 PM EDT [facility] Comment: LDL Cholesterol (mg/dL) ?Adults (>=18 years) ?Children (<18 years) Desirable ?<100 ? <110 Above Desirable ?100-129 ?Not Established Borderline-High ?130-159 ?110- 129 High ? 160-189 ?>=130 Very High? >=190 ?Not Established Blood Venipuncture / Unknown 09/09/2021 12:05 PM EDT 09/09/2021 12:05 PM EDT us Deep Pruitt APRN LAB BLOOD ORDERABLES Final Result Performing Organization Address [facility]/ZIP Co de Phone Number [facility] [address] [place] [phone] [place] [address] * (ABNORMAL) Albumin/creatinine panel, urine, random (09/09/2021 11:01 AM EDT) Albumin, Urine, Random 1,616.3 Reference Range Not Established mg/L 09/09/2021 2:52 PM EDT [facility] Creatinine, Urine, Random 35 Reference Range Not Established mg/dL 09/09/2021 2:52 PM EDT [facility] Albumin/Creatin ine Ratio, Urine, Random 4,684.9(H ) <30.0 mg/g Cr 09/09/2021 2:52 PM EDT [facility] Comment: High albuminuria (formerly microalbuminuria): ??30-300 mg/g Cr Very high albuminuria (overt albuminuria): ? >300 mg/g Cr Urine Collection / Unknown 09/09/2021 11:01 AM EDT 09/09/2021 11:01 AM EDT Deep Pruitt APRN URINE ORDERABLES Final Resu lt Performing Organization Address [facility] Co de Phone Number [address] [id number] [phone] * (ABNORMAL) CBC auto differential (09/09/2021 10:58 AM EDT) WBC 13.5(H) 4.0 - 11.0 x1000/??L 09/09/2021 2:16 PM EDT [facility] RBC 5.05 4.00 - 6.00 M/??L 09/09/2021 2:16 PM EDT [facility] Hemoglobin 13.9 13.2 - 17.1 g/dL 09/09/2021 2:16 PM EDT [facility] Hematocrit 46.10 38.50 - 50.00 % 09/09/2021 2:16 PM EDT [facility] MCV 91.3 80.0 - 100.0 fL 09/09/2021 2:16 PM EDT [facility] MCH 27.5 27.0 - 33.0 pg 09/09/2021 2:16 PM EDT [facility] MCHC 30.2(L) 31.0 - 36.0 g/dL 09/09/2021 2:16 PM EDT [facility] RDW-CV 15.1(H) 11.0 - 15.0 % 09/09/2021 2:16 PM EDT [facility] Platelets 298 150 - 420 x1000/??L 09/09/2021 2:16 PM EDT [facility] MPV 13.0(H) 8.0 - 12.0 fL 09/09/2021 2:16 PM EDT [facility] Neutrophils 63.6 39.0 - 72.0 % 09/09/2021 2:16 PM EDT [facility] Lymphocytes 22.5 17.0 - 50.0 % 09/09/2021 2:16 PM EDT [facility] Monocytes 9.2 4.0 - 12.0 % 09/09/2021 2:16 PM EDT [facility] Eosinophils 3.6 0.0 - 5.0 % 09/09/2021 2:16 PM EDT [facility] Basophil 0.4 0.0 - 1.4 % 09/09/2021 2:16 PM EDT [facility] Immature Granulocytes 0.7 0.0 - 1.0 % 09/09/2021 2:16 PM EDT [facility] nRBC 0.0 0.0 - 1.0 % 09/09/2021 2:16 PM EDT [facility] ANC(Abs Neutrophil Count) 8.60(H) 2.00 - 7.60 x 1000/??L 09/09/2021 2:16 PM EDT [facility] Absolute Lymphocyte Count 3.05 0.60 - 3.70 x 1000/??L 09/09/2021 2:16 PM EDT [facility] Monocyte Absolute Count 1.24(H) 0.00 - 1.00 x 1000/??L 09/09/2021 2:16 PM EDT [facility] Eosinophil Absolute Count 0.49 0.00 - 1.00 x 1000/??L 09/09/2021 2:16 PM EDT [facility] Basophil Absolute Count 0.06 0.00 - 1.00 x 1000/??L 09/09/2021 2:16 PM EDT [facility] Absolute Immature Granulocyte Count 0.10 0.00 - 0.30 x 1000/??L 09/09/2021 2:16 PM EDT [facility] Absolute nRBC 0.00 0.00 - 1.00 x 1000/??L 09/09/2021 2:16 PM EDT [facility] Blood Venipuncture / Unknown 09/09/2021 10:58 AM EDT 09/09/2021 10:58 AM EDT Deep Pruitt APRN LAB BLOOD ORDERABLES Final Result [facility] [address] [place] [address] * (ABNORMAL) Hemoglobin A1c (09/09/2021 10:58 AM EDT) Hemoglobin A1c 11.5(H) 4.0 - 5.6 % 09/10/2021 6:36 PM EDT [facility]ORY MEDICINE Comment: Hemoglobin A1c [...] mg/dL 283 mg/dL 09/10/2021 6:36 PM EDT [facility] OF LABOR[facility]ORY MEDICINE Comment: Estimated average glucose (eAG) is a calculated value designed to estimate ??the expected average blood glucose level throughout the day from a single ??measurement of ??glycated hemoglobin A1C (HbA1c) and follows the calculation proposed by the [place] [employer] (Diabetes Care 31: 1-6, 2008). It may have less accuracy in children, women and patients with certain erythrocyte disorders. Blood Venipuncture / Unknown 09/09/2021 10:58 AM EDT 09/09/2021 10:58 AM EDT Deep Pruitt APRN LAB BLOOD ORDERABLES Final Result [facility] OF LAB[facility]ORY MEDICINE [address] [place] [address] documented in this encounter Visit Diagnoses Diagnosis [...] documented as of this encounter Care Teams Forensic Pathologist Relationship Specialty Start Date End Date Deep Pruitt APRN PCP - General 05/22/19 documented as of this encounter
--- OUTSIDE RECORDS SUMMARY | 2024-06-17 13:21 | XMS_ITS | Encounter Summary ---
Author Organization [facility] Address [address] [place] [address] Care Team Providers Care Lacquer Pin Press Operator Name Role Phone Deep Pruitt APRN Primary Care Provider Encounter Details Date Type Department Care Team ([facility] st Contact Info) Description 10/26/2020 Scanned Document [facility] [address] [place], [place] [phone] Deep Pruitt APRN [address] [place] [address] Social History Tobacco Use Types [...] documented as of this encounter Care Teams Lacquer Pin Press Operator Relationship Specialty Start Date End Date Deep Pruitt APRN PCP - General 05/22/19 documented as of this encounter
--- OUTSIDE RECORDS SUMMARY | 2024-06-17 13:21 | XMS_ITS | Encounter Summary ---
Author Organization [facility] Address [address] [place] [address] Care Team Providers Care Operations Research Director Name Role Phone Romelia Pruittian Niko LOPEZ Primary Care Provider Encounter Details Date Type Department Care Team (Late st Contact Info) Description 09/08/2021 Scanned Document [facility] [address] [place] [address] External, Provider Social History Tobacco Use Types [...] Date Recorded PHQ-2 Total Score 2 09/08/2021 [facility] of Occupat ional Health [...] as of this encounter Care Teams Operations Research Director Relationship Specialty Start Date End Date Deep Pruitt APRN PCP - General 05/22/19 documented as of this encounter
--- OUTSIDE RECORDS SUMMARY | 2024-06-17 13:21 | XMS_ITS | Encounter Summary ---
Author Organization [facility] Address [address] [place] [address] Care Team Providers Care Stadium Attendant Name Role Phone Romelia Pruittian Niko LOPEZ Primary Care Provider [phone] Reason for Visit * Reason Comments Medication Refill Encounter Details Date Type Department Care Team ([facility] st Contact Info) Description 09/16/2021 Refill [facility] [address] [place] [address] Carlos Eduardo Joyner MD [address] [place] [phone] Medication Refill Social History Tobacco Use [...] any clubs o r organizations such as zoroastrianism groups, unions, fraternal or athletic groups, or [...] Total Score 5 09/14/2021 [facility] of Occupat ional Health - [...] documented as of this encounter Care Teams Stadium Attendant Relationship Specialty Start Date End Date Deep Pruitt APRN PCP - General 05/22/19 documented as of this encounter
--- OUTSIDE RECORDS SUMMARY | 2024-06-17 13:22 | XMS_ITS | Encounter Summary ---
Author Organization [facility] Address [address] [place] [address] Care Team Providers Care Stamping Operator Name Role Phone Deep Pruitt APRN Primary Care Provider Reason for Visit * Reason Comments Medication Refill Encounter Details Date Type Department Care Team ([facility] st Contact Info) Description 09/17/[address] [facility] [address] [place] [address] Deep Pruitt APRN [address] [place] [phone] Medication Refill Social History Tobacco Use [...] Answer Date Recorded PHQ-2 Score 2 07/07/2020 [facility] of Occupat ional [facility] - Occupational Stress Questionnaire Answer [...] documented as of this encounter Care Teams Stamping Operator Relationship Specialty Start Date End Date Deep Pruitt APRN PCP - General 05/22/19 documented as of this encounter
--- OUTSIDE RECORDS SUMMARY | 2024-06-17 13:22 | XMS_ITS | Encounter Summary ---
Author Organization [facility] [employer] [facility] Address [address] [place] [id number] Care Team Providers [employer] General Sales Manager Name Role Phone Romelia Pruittian Niko LOPEZ Primary Care Provider [phone] Encounter Details Date Type Department Care Team (Latest Contact Info) Description 08/10/2021 Transcribed Orders [facility] [address] [place] [address] Taylor Malagon, [employer] [address] [place] [phone] Stage 3a chronic kidney disease [...] Date Recorded PHQ-2 Total Score 4 07/13/2021 [facility] - [...] - 4.5 mg/dL 08/10/2021 10:26 AM EDT [facility] DEPARTMENT OF LABORATORY MEDICINE Blood Venipuncture / Unknown 08/10/2021 9:40 AM EDT 08/10/2021 9:56 AM EDT Taylor Malagon APRN LAB BLOOD ORDERABLES Fauzia guzman Result [facility] DEPARTMENT OF LABORATORY MEDICINE [address] [place] [address] documented in this encounter Visit Diagnoses Diagnosis Stage 3a chronic kidney disease (CKD) (HC Code)- Primary documented in this encounter Additional Health Concerns Infection Onset Date Last Indicated Resolved Time COVID-19 09/29/2021 09/29/2021 10/19/2021 7:19 PM EDT Assessment Noted Time PHQ-9 Depression Total Score: 11 022 2:28 PM EST documented as of this encounter Care Teams [employer] General Sales Manager Relationship Specialty Start Date End Date Deep Pruitt APRN PCP - General 05/22/19 documented as of this encounter
--- OUTSIDE RECORDS SUMMARY | 2024-06-17 13:22 | XMS_ITS | Clinical Summary ---
Author Organization [address] Address [address] [place] [phone] Care Team Providers Care Colorer Name Role Phone Deep Pruitt APRN Primary [...] edema will order Compression sleeves today from [facility] today, Put on lower legs during [...] of insulin, Duration 99, Feeding difficulty R63.30 81985 mL 06/23/19 Active metFORMIN (GLUCOPHAGE) 1000 mg [...] AM with Arben Fountain DPM at the [facility] -Will f/u with Pt in a month [...] appointment and was informed he can call [phone] to find a closer time Assessment & Plan (02/19/2022 1:59 PM EDT): -The Pt went to his [employer] and was c/o right kidney pain for [...] worse at night - pathway utilized through [employer], patient eligible for molnupiravir, may benefit from [...] Ref. Range 04/07/2020 SPEP Interpretation Unknown ?? Jgqdr-2-Amdryozw Latest Ref Range: 0.2 - 0.3 g/dL 0.3 Puswn-8-Mbosgahz Latest Ref Range: 0.5 - 0.9 g/dL 1.1 (H) Interpretation Unknown Comment Only Abnormal Protein Band 2 Latest Ref Range: NONE DETECTED g/dL CANCELED Abnormal Protein Band 3 Latest Ref Range: NONE DETECTED g/dL CANCELED Wevn-0-Olwycdjw Latest Ref Range: 0.4 - 0.6 g/dL 0.5 Tduh-3-Rxyyqynk Latest Ref Range: 0.2 - 0.5 g/dL [...] 04/08/2020 17:50 ?? Ref. Range 04/07/2020 Free Artesian Latest Ref Range: 3.3 - 19.4 mg/L 35.9 (H) Free Lambda Latest Ref Range: 5.7 - 26.3 mg/L 26.6 (H) Free Artesian/Lambda Ratio Latest Ref Range: 0.26 - 1.65 [...] 15:12 Ref. Range 04/07/2020 SPEP Interpretation Unknown Dacns-3-Wsyludjm Latest Ref Range: 0.2 - 0.3 g/dL 0.3 Cpgcv-7-Pqjlelrq Latest Ref Range: 0.5 - 0.9 g/dL 1.1 (H) Interpretation Unknown Comment Only Abnormal Protein Band 2 Latest Ref Range: NONE DETECTED g/dL CANCELED Abnormal Protein Band 3 Latest Ref Range: NONE DETECTED g/dL CANCELED Ztle-2-Fbspqbbp Latest Ref Range: 0.4 - 0.6 g/dL 0.5 Cscp-0-Hkzzomoc Latest Ref Range: 0.2 - 0.5 g/dL [...] 04/08/2020 17:50 ?? Ref. Range 04/07/2020 Free Artesian Latest Ref Range: 3.3 - 19.4 mg/L 35.9 (H) Free Lambda Latest Ref Range: 5.7 - 26.3 mg/L 26.6 (H) Free Artesian/Lambda Ratio Latest Ref Range: 0.26 - 1.65 [...] of 04/08/2020 17:50 Ref. Range 04/07/2020 Free Artesian Latest Ref Range: 3.3 - 19.4 mg/L 35.9 (H) Free Lambda Latest Ref Range: 5.7 - 26.3 mg/L 26.6 (H) Free Artesian/Lambda Ratio Latest Ref Range: 0.26 - 1.65 [...] like to speak with his pcp first [phone] Phone Conversation with Pt over the phone: PCP called lithuanian speaking (uncontrolled diabetic) Pt over the phone, [...] Tried to call the Pt using the Russian Interpretor 3187, V/M was not set up [...] have CC'd Ricarda Du MD, his primary second ride fare collector. She has a phone consult with him [...] all the Pt medication bottle be in lithuanian, Pt had a medication (allopurinoL (ZYLOPRIM) 100 mg tablet) error because he can not read in Fijian, the Pt was prescribed 1/2 tab but [...] appointment to see me at the front desk manager ?? Latest Reference Range & Units 09/09/21 12/15/21 BUN 7 - 25 mg/dL 31 (H) 29 (H) Creatinine 0.70 - 1.30 mg/dL 1.40 (H) 1.55 (H) BUN/Creatinine Ratio 6 - 22 (calc) 22.1 19 eGFR (NON -Montenegrin) >60 mL/min/1.73m2 53 eGFR (Afr Amer) >60 [...] Range: 8.0 - 23.0 22.1 eGFR (NON -Montenegrin) Latest Ref Range: >60 mL/min/1.73m2 53 eGFR [...] Taylor Malagon APRN at the Nephrology at [address] [place] [address], The Renal department is working on getting the Pt a 24 hour HTN monitor to assess the effectiveness of his recent medication changes, used lithuanian interpretor 9243 ?? 07/13/2021 Renal Referral Note:?? Assessment and [...] effectiveness of his recent medication changes, used lithuanian interpretor 9217 07/13/2021 Renal Referral Note: Assessment [...] given a referral to talk with the [facility] Check Examiner for further assessment of his current diet [...] and magnesium supplements that he said a assistant maintenance manager told him were good for his kidneys. [...] preparation for his first visit with a second ride fare collector, Ricarda Du MD on 04/07/2020. Assessment & Plan (02/12/2020 2:18 PM EDT): Pt was recently in the hospital for Kidney issues, the Pt missed a previous Kidney appointment and will ask Pt to reschedule another Kidney appointment Date & Time 02/25/2020 10:00 AM Provider Taylor Malagon APRN Department [facility] at [address] [facility] Nephrology [address] [facility] 2nd Floor [facility] [address] Comment: Pt needs a Kidney referral due [...] 23 (H) 23 (H) 14.7 eGFR (NON -Montenegrin) Latest Ref Range: >60 mL/min/1.73m2 76 77 [...] (see MRI of Brain from 2017 under [facility] Multimedia -Significant deficits on neurologic exam Memory loss and Left handed weakness -Imaging and prior evaluation -Current blood thinning agents is aspirin -Potential details to include, when relevant: poor GAIT, uses a walker to get around -How the diagnosis was made: Pt lived in [facility] at the time, Under Multimedia in [facility] see specific file at specific date [id number] Image MRI Result [facility] - MRI BRAIN CVA -09/25/2016 [id number] Image Evaluation [facility]- Left handed weakness note - [...] a letter to be given to the [email or web address] advising stating that the Pt is disabled and needs help with housing Is there a form to be fill out from the [email or web address] advising that the Pt is disabled and needs help with housing t 03/26/21 Oksana Fox to Deep Pruitt NP Summary: Letters needed by patient This designer writer met with patient at the clinic today 03.26.21 per nurses request, to assistance with letters that the patient is requesting. This designer writer spoke to patient and patient is [...] Patient is also requesting a letter for [email or web address] advising that he is disabled. Patient stated that he has already applied for and wants this letter to help him get Housing CCM: 15 minutes 04/11/2021 Deep Pruitt APRN Assessment & Plan (05/31/2020 5:20 PM EST): Pt had a CVA from 2017 and needs Neuro clearance before getting a Colonoscopy Presumed etiology of prior stroke (see MRI of Brain from 2017 under [facility] Multimedia Significant deficits on neurologic exam Memory loss and Left handed weakness Imaging and prior evaluation Current blood thinning agents is aspirin Potential details to include, when relevant: poor GAIT, uses a walker to get around How the diagnosis was made: Pt lived in [facility] at the time, Under Multimedia in [facility] see specific file at specific date [id number] Image MRI Result [facility] - MRI BRAIN CVA -09/25/2016 [id number] Image Evaluation [facility]- Left handed weakness note - [...] is working with his Diabetic Specialist at [facility] and has an appointment next week, will increase his Gababentin to 800 mg PO TID which has helped with his neuropathic pain, Spent 25 mins with Pt using the Cutting Room Supervisor Microalbuminuric diabetic nephropathy (HC Code) (HC CODE) [...] Ricarda Du MD at the Nephrology at [address] [place] [address] Results for DARREL BHARDWAJ ( ) as [...] ) as of 09/19/2019 07:04 eGFR (NON -Montenegrin) Latest Ref Range: > OR = 60 [...] for Bariatric surgery and Pt needs a contact finger assembler Assessment & Plan (09/10/2021 5:42 PM EDT): Pt has a BMI of 40.4 and is working with the wellness clinic to work on his weight loss plan, putting a referral in for Bariatric surgery and Pt needs a contact finger assembler Assessment & Plan (09/26/2019 9:45 AM EDT): Pt has a BMI of 40.4 and is working with the wellness clinic to work on his weight loss plan, putting a referral in for Bariatric surgery and Pt needs a contact finger assembler Assessment & Plan (09/09/2019 2:47 PM EDT): [...] whole encounter. The interview was conducted in Russian which is my [place] language. I have encouraged Mr. Bhardwaj to contact us with any questions, concerns or clinical changes. Plan: 1. Continue current therapy. 2. No need for supplemental oxygen. Assessment & Plan (12/23/2021 12:10 PM EDT): -The Pt continues to feel like he is constantly SOB and is asking to be put on Oxygen CHEMICAL PATHOLOGIST -The Pt was given a list of labs to complete and once done then the Pt will be scheduled appointment with his Clinical Systems Educator -The Pt and the Clinical Systems Educator will decide together if the pt needs to be on O2 CHEMICAL PATHOLOGIST or not 08/18/2021 Pulmonary Note: Assessment: Mr. [...] ways in which he can request an clay molder over the phone and I am happy [...] complaints are out of proportion to seemingly frms-hz-wlgihqlm asthma and his dyspnea is likely multifactorial. [...] ways in which he can request an clay molder over the phone and I am happy [...] complaints are out of proportion to seemingly pwwn-pf-fqjeaqru asthma and his dyspnea is likely multifactorial. [...] in collaboration with Dr. Deep Yo. ?? [facility] Quality Initiatives: ?? Tobacco counseling: Patient is [...] allergies spent 20 mins with Pt using Russian Interpretor 1674 Assessment & Plan (11/14/2020 11:15 [...] 7 years for colon cancer screening purposes.??Used Russian interpretor 8245 Assessment & Plan (06/16/2021 10:23 [...] years for colon cancer screening purposes. Used Russian interpretor 8245 Assessment & Plan (09/13/2020 7:30 [...] years for colon cancer screening purposes. Used Russian interpretor 3293 Assessment & Plan (06/24/2020 4:13 PM EST): Pt was informed of the following message and told to call and was asked to call to make a colonoscopy appointment 06/03/20 12:29 PM Message from [facility] at [address] [place] [address] Called patient to cancel pre colon appointment, [...] the Pt had colonoscopy at [facility] in [facility] and was told to return in [...] REPORT ? Patient: DARREL BHARDWAJ ?MR #: [id number] ([id number]) ?Submitted by: Hedy Hameed MD STOMACH, BIOPSY [...] disordered breathing. RECOMMENDATIONS / PLAN : -Current [employer] recommendations for treatment of [...] Pt Called patient with Jose Rolon. Nancy #[id number]. Patient said that he has an old ResMed that he received in [place]. He doesn't know his mode or settings. Nor does he know his previous DME Assessment & Plan (09/10/2021 5:40 PM EDT): The Pt has an Sleep Apnea appointment on 09/24/2021 at??4:20 PM with Ryanne Ocasio MD at the Diabetes Center at [address] [facility] Assessment & Plan (09/24/2019 3:03 PM [...] spent 45 mins with Pt with a construction grip SLEEP STUDY - [facility] - [phone] Assessment & Plan (09/09/2019 3:22 PM EDT): Pt typically sleep 2.5 hours a night, Pt still has to return his sleep apnea machine to [place] before a sleep apnea clinic in [place] will talk to him, Pt has a BMI of 40.4 and PCP will put a referral in for sleep apnea for Pt today, spent 35 mins with Pt with a construction grip Diabetic foot (HC Code) (HC CODE) 02/07/2019 Assessment & Plan (06/24/2022 9:27 AM EST): The Pt continues to deal with bilateral foot pain and wears a pair of Diabetic shoes with specification ordered by his Consulting Marine Engineer Doctor Assessment & Plan (05/31/2021 2:00 PM EST): The Pt continues to deal with bilateral foot pain and needs to get a pair of Diabetic shoes with specification ordered by his Consulting Marine Engineer Doctor and will increase Gabapentin from 400 mg PO BID to 800 PO BID Assessment & Plan (01/04/2021 10:02 AM EDT): - recently seen in mid-December by Podiatry- note reviewed Assessment & Plan (10/14/2020 9:29 AM EDT): The Pt continues to deal with bilateral foot pain and needs to get a pair of Diabetic shoes with specification ordered by his Consulting Marine Engineer Doctor see below: 08/26/2020 Podiatry Note: Bilateral [...] Also using his neuropathic compounding formula from [employer] as an adjunctive therapy and likes it [...] is working with his Diabetic Specialist at [facility] and has an appointment next week, will increase his Gababentin to 800 mg PO TID and assess effectiveness in one month Assessment & Plan (02/07/2019 6:48 AM EDT): Pt needs a Podiatry appointment due to toe nails need to be cut and Pt needs establish care with a Consulting Marine Engineer for his annual diabetic foot care Diabetic eye exam 02/07/2019 Assessment & Plan (06/24/2022 9:29 AM EST): The Pt stated today that he saw his Eye Doctor, unable to see event in [facility] Assessment & Plan (09/18/2020 6:10 PM EDT): Pt has complaints of vision changes and he blew a blood vessel on his sclera, 3 years ago the Pt would see his Retina Doctor who did a lazer every 6 month, Pt needs a retinal eye referral 09/18/2020 Jeovanny Lynn: I put a referral in for the Pt and lately the [facility] has not been given dates for [...] is in need of seeing eye doctor [facility]. Patient can be reached at [phone]. Ms. Rosales can be reached at the same number [phone]. Thank you Deep Assessment & Plan (05/28/2020 [...] the Pt needs to call the [facility] [address] [phone] Assessment & Plan (10/14/2020 2:13 PM EDT): [...] (01/04/2019 4:02 PM EDT): Pt needs a Russian speaking Nurse to help him manage his [...] -Pt will be called biweekly by the [facility] Nurse to review his FBS [...] medications -He has been following with the [facility] team and reports taking all of [...] decided to move his family back to [facility] due to being closer to family and [...] billing issues. He also was supposed to hot die picker a Dexa scanner/sensor, but he was [...] (DEXCOM G6 SENSOR) device and scanner Asked [employer] Philosophy Professor to schedule a 1/2 hour Nurse visit [...] 200-300 average, checks ACHS -Pt has his [facility] appt on 04/21/2022 at 11:30 AM [...] Pt will continues to go to his [facility] appointments to review his Dexcom G6 numbers and make appropriate medication changes -If all that happens then the Pt can also scan before each meal, switch from taking 30 units of prandial insulin to start a Sliding Scale -Will leave note with Pt's Fishing Rod Mechanic that the Pt needs to have Provider use a Cutting Room Supervisor due to his poor Fijian skills -The Pt has received the Dexcom G6 soldering machine operator helper and scanner but still does not [...] Pt will continues to go to his [facility] appointments to review his Dexcom G6 [...] EDT): -Met with Pt and with our [facility] RN who was able to translate the [...] 190u??bid 2.Novolog 30??before meals + supplementary sliding aonar276-376-->4u, 200-249-->6u,??250-299-->8u, 300-349-->10u, >350-->12u 3.continue with ??trulicity 4.5 mg weekly, jardiance 25 mg daily and metformin 1000 mg bid 4.contact us in 1 week to report BG 5.Check BS 4X/day. Keep organized log and bring it next time.??Call [facility] for use of Dexcom CGM 6.Hypoglycemia management:??Carry [...] yes ?? Recommendations: #Diabetes: 1. Continue with [id number] 190u bid 2.Novolog 30 before meals + supplementary sliding scale ?150-199-->??4??units ?200-249-->??6??units ?250-299-->??8??units ?300-349-->??10units ?>350-->?12 3.continue with trulicity 4.5 mg weekly, jardiance 25 mg daily and metformin 1000 mg bid 4.contact us in 1 week to report BG 5.Check BS 4X/day. Keep organized log and bring it next time. Call [facility] for use of Dexcom CGM [...] his painful foot issues -Will talk with [facility] Nurse about the Pt and support systems may not be compliant with taking meds and Insulin on a regular basis -Will work on bring the Pt's A1C down, it has been in the 's for the past year and Pt not wanting to see [facility] or [facility] Diabetic Specialist -Will have to set [...] the Bariatric Doctor for weight loss -Used Cutting Room Supervisor # [id number] -Pt wished he could get his diabetic care restarted at the [facility] -Pt does not want to go to [facility] Diabetic Clinic or the [facility] [facility] clinic due to not feeling comfortable [...] Pt needs to be rescheduled with our [facility] Diabetic Clinic with Zena Hines PA, the Pt did not like dealing with [facility] due to not feeling comfortable with the [facility] Providers and has had missed multiple appointments The Pt continues to deal with an elevated A1C, Pt wished he could get his diabetic care restarted at the [facility], will refer today ?? Results for DARREL [...] MD sent at 09/30/2021 Regarding: RE: reschedule metal can inspector appointment I think this is his 3rd [...] Ocasio MD at the Diabetes Center at [address] [place] [address], Pt wished he could get his diabetic care restarted at the [facility], Pt advised to go to his scheduled [...] LDL 90 01/25/2021 MALCRR 3,278 (H) 09/16/2019 Outpatient/GUEST SERVICES MANAGER meds BLOOD GLUCOSE METER (IntentioUCH VERIO FLEX METER) device dulaglutide (TRULICITY) 4.5 mg/0.5 mL PnIj flash glucose (FREESTYLE ORTEGA 14 DAY) scanning reader FREESTYLE ORTEGA 14 DAY sensor kit insulin aspart (NOVOLOG FLEXPEN INSULIN) 100 unit/mL (3 mL) pen insulin regular human CONCENTRATED 500 units/mL (HUMULIN R U-500, CONC, KWIKPEN) injection pen JARDIANCE 25 mg tablet metFORMIN (GLUCOPHAGE) 1000 mg tablet - continues to see [facility] - recent finger stick readings 350, no symptoms of hyperglycemia - discussed with patient taking medications as prescribed as well as changing diet - recommended to reduce carb intake and simple carbs throughout the day and night and see if fasting glucose improved in morning - plans to see [facility] soon Assessment & Plan (04/23/2021 10:36 AM EST): The Pt continues to work with his [facility] Diabetic Specialist and stated that his Finger sticks range between 98-160, Pt needs to get additional labs to assess kidney fx and his diabetes Assessment & Plan (01/08/2021 1:21 PM EDT): The Pt continues to deal with elevated A1C and sees his Fishing Rod Mechanic on a regular basis Results for DARREL [...] and has a f/u appointment with his Fishing Rod Mechanic on 09/29/2020 08/27/2020 Endocrine referral: Assessment and [...] his blood sugars. Could also consider insulin partner manager like pioglitazone at low dose. ?? [...] Krystle Santos RN Spoke with pharmacist at [facility], states if PCP will send scripts for [...] between 7 or 8 and talked through construction grip 3362 that the Pt has to have [...] to 110 and send message to his coal hauler Isha Carmen APRN??with [facility] Assessment & Plan (05/28/2020 3:01 [...] to 105 and send message to his coal hauler Isha Carmen APRN with [facility] ?? Assessment & Plan (04/08/2020 [...] the care of Isha Carmen APRN with [facility] and was last prescribed insulin [...] - 64 pg/mL 64.2 74 (H) Vitamin R59-Epletfp Latest Ref Range: 20 - 50 ng/mL [...] Diabetic care will be transferred over to [facility] and he has the following [...] like to speak with his pcp first [phone] (lithuanian speaking) Assessment & Plan (11/13/2019 7:10 PM [...] - 22 (calc) 23 (H) eGFR (NON -Montenegrin) Latest Ref Range: > OR = 60 [...] Pt is currently seeing our Diabetic Specialist CHEMICAL PATHOLOGIST at [facility], talking with CHEMICAL PATHOLOGIST on phone the Pt has developed an [...] 10, Pt needs to meet with the [facility] Nurse with the goal to bring his [...] will continue to see Diabetic Clinic at [facility] for additional medication adjustments and will [...] will continue to see Diabetic Clinic at [facility] and re-evaluate Pt care in one [...] 6-8 weeks to be seen by his photoengraver Dr. Newberry. ?? Attending Addendum: I have [...] that he is on this. I contacted [facility] pharmacy and they reported that on [...] call back to Fani Heath PharmD at [phone] 08/04/21 Fani Heath PharmD called Pt Called patient for scheduled pharmacist HTN visit. I was not able to reach patient and LVM requesting a call back. ID [id number] assisted call. Of note, appears patient was [...] Dr. Newberry and should be visible in [employer]. We would like you to please call [...] pain and dyspnea # h/o CVA (NOT VA -- historical charting error) # Dyslipidemia with [...] pain and dyspnea # h/o CVA (NOT VA -- historical charting error) # Dyslipidemia with [...] basis by his , will ask our [facility] Nurse to call Pt and verify their [...] basis by his , will ask our [facility] Nurse to call Pt and verify their [...] recent creatinine/potassium from 01/07 stable, recheck in [facility] this week Assessment & Plan (01/04/2021 [...] in one week to manage HTN, used clerk to justice [id number], Pt denies experiencing any pain or tightness [...] EST): When the Pt was admitted to [place] for NICOLAS they had stopped his Lisinopril [...] medication up weekly, spent 35 min with Cutting Room Supervisor [phone], will f/u with Pt in one month [...] needs to get all his meds in lithuanian and has an appointment on 02/24/2020 02/24/2020 ??3:40 PM Provider Deep Pruitt APRN [facility] Assessment & Plan (02/22/2020 5:19 AM EDT): I see that Losartan help protect the kidneys from damage due to diabetes, I will discontinue the atenolol and start him at Losartan 25 mg and slowly titrate him up and the Pt needs to get all his meds in lithuanian and has an appointment on 02/24/2020 02/24/2020 ??3:40 PM Provider Deep Pruitt APRN [facility] Assessment & Plan (03/16/2019 6:10 AM [...] (calc) 6.9 (H) The ASCVD Risk score (Mizpahhenry WOODWARD Jr., et al., 2013) failed to calculate for the following reasons: The patient has a prior VA or stroke diagnosis Assessment & Plan (12/18/2018 [...] to call Pt with results seen below (Russian only please) -And let him know that his UTI results were negative and there is no reason for antibiotics 09/08/2021 PCP Note: Pt c/o burning with urination for the past 2 day, will ask Pt to do a urine culture before prescribing an Antibiotic medication used Russian interpretor 4861 09/10/2021 PCP Addendum Note: The Pt has [...] the Pt had colonoscopy at [facility] in [facility] and was told to return in a year for further surveillance because he had several polyps removed, the concern is that the Pt had a CVA x 2 in 2017 and need Neuro clearance and the Neuro referral was put in today Assessment & Plan (11/13/2019 7:05 PM EDT): Pt had a Colonoscopy done in [facility] in [facility] one year ago and was told [...] AM EDT): 01/02/2020 the 49 yo male (Russian speaking only) with a BMI of 39.6, last A1C Dec 2019 increased to 13.7, in 2017 the Pt had a right sided stroke (minimal residual speech and walking issues) and is working with our Diabetic CHEMICAL PATHOLOGIST Specialist to bring his sugars down, Pt [...] Plan (11/13/2019 7:08 PM EDT): Used a Cutting Room Supervisor 1300 for the entire 25 min visit, Pt [...] with Pt in 1 weeks, used a Cutting Room Supervisor [id number] throughout the visit -10/23/2019 the Pt again [...] with Pt in 2 weeks, used a Cutting Room Supervisor [employer] through out the visit Assessment & [...] (H) -Pt will be referred to the [facility] Check Examiner to assess if his current diet is [...] Perla Rice RN message to Deep Pruitt CHEMICAL PATHOLOGIST Call was returned to patient and his [...] input from his primary care physician and second ride fare collector would be helpful. Considerations would include: stopping amlodipine, increasing diuretics, re-assessing labs for kidney function (e.g. is proteinuria worsening), and dietary interventions. Also counseled patient that weight loss would likely be helpful. I think his dairy manager can be helpful with managing his midfoot [...] input from his primary care physician and second ride fare collector would be helpful. Considerations would include: stopping amlodipine, increasing diuretics, re-assessing labs for kidney function (e.g. is proteinuria worsening), and dietary interventions. Also counseled patient that weight loss would likely be helpful. I think his dairy manager can be helpful with managing his midfoot [...] plan for regular follow up with your dairy manager, primary care physician, and second ride fare collector ?? Follow-up: as needed with me ?? Other interventions: recommend keeping the legs elevated when sitting (try to get feet above the level of the heart to get the fluid to come down; also recommend new pair of custom graduated compression stockings - wear daily - please call [facility] for an appointment to be measured for the new stockings so they fit you well. [facility] [address] [place] [address], [place] [address] , PCP Notes: Will stop Amlodipine 5 mg PO QD and start Pt on Spirolactone 25 mg PO QD and assess in 2 weeks if Spirlactatone needs to be increased to 25 mg BID Will fax to [facility] order for Compression stocking and put contact info in AVS for the Pt to call and arrange for sizing CCM: 10 minutes 12/29/2020 Deep Pruitt APRN Assessment & Plan (06/24/2020 3:44 PM EST): 06/13/2020 the Pt had 2 pairs of Knee high compression stockings ordered and sent to [facility] and the Pt has to call [facility] so he can be measured and then pick them up when they arrive Assessment & Plan (06/13/2020 7:10 AM EST): Pt continues to deal with bilateral lower extremity edema will order Compression sleeves today from [facility] today, Put on lower legs during the day and take off at night, and wash and let dry and put on 2nd pair on the following day for Edema, lower extremity R60.0, will send to [facility] today Assessment & Plan (05/26/2020 5:58 [...] in 2 days at his next appointment Russian Interpretor #[id number] CCM: 20 minutes 05/26/2020 Deep [...] MD Department Ambulatory Surgical Specialties - Vascular [facility] [address] ??[place] [address] Assessment & Plan (01/30/2020 4:18 PM EDT): [...] EST): When the Pt was admitted to [facility] for NICOLAS they had stopped his Lisinopril [...] needs to get all his meds in lithuanian, sued construction grip Mikhail Lore Administrative encounter 02/07/201909/2020 Assessment & Plan (02/07/2019 7:01 AM EDT): The Pt asked for a [place] State form Medical Report for Person who needs care , with Goal to 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 More than 4 times per year [...] Date Recorded PHQ-2 Total Score 2 02/17/2022 [facility] [place] of Occupat ional Health - Occupational Stress [...] your living situation today? I have a [facility] place to live 05/19/2022 Sex and Gender [...] 9:01 AM EDT Screening for prostate cancer [place] PROPHYLAXIS - ADULT Routine 08/10/2021 10:45 AM EDT Encounter for dental exam and cleaning w/o abnormal findings [place] BITEWINGS - FOUR RADIOGRAPHC IMAGES Routine 07/05/2021 10:30 AM EST Encounter for dental examination [place] PERIODIC ORAL EVALUATION EST PT Routine 07/05/2021 10:30 AM EST Encounter for dental examination Oral frictional keratosis Partially edentulous mandible, unspecified edentulism class Secondary dental caries associated with failed or defective dental episcopal Dental caries on smooth surface penetrating into [...] Results * (ABNORMAL) POCT HgbA1c, total CPT: 95171 (06/23/2022 4:21 PM EST) Pathologist [facility] Hemoglobin A1C, POC 10.6 4.0 - 6.0 % [facility] Test Lot Number [id number] [facility] Test Lot Exp Date 09/18/22 Date Format: MM/DD/YYYY [facility] Blood specimen (specimen) 06/23/2022 4:21 PM EST Deep Pruitt APRN POINT OF CARE TEST ORDERABL ES Final Result Performing Organization Address City/[facility]/ZIP Co de Phone Number [facility] * (ABNORMAL) LDL cholesterol, direct (03/14/2022 9:17 AM EST) Pathologist [facility] Direct LDL 101(H) <100 mg/dL [facility] [...] Comment Performing Lab: ?Site ID: [id number] ?Name: [employer] ?Address: [address] [place] [address], [place] [address] ?Director: Yadira Bowman M.D. Depe Pruitt APRN LAB BLOOD ORDERABLES Final Result [facility] [address] [place] [address] * (ABNORMAL) Albumin/creatinine panel, urine, random (02/15/2022 2:02 PM EDT) Pathologist [facility] Albumin, Urine, Random 1,885.3 Reference Range Not Established mg/L 02/15/2022 3:42 PM EDT [facility] Creatinine, Urine, Random 60 Reference Range Not Established mg/dL 02/15/2022 3:42 PM EDT [facility] Albumin/Creatin ine Ratio, Urine, Random 3,168.6(H ) <30.0 mg/g Cr 02/15/2022 3:42 PM EDT [facility] Comment: Moderately increased albuminuria (formerly microalbuminuria): ??30-300 mg/g Cr Significantly increased albuminuria (overt albuminuria): ? >300 mg/g Cr Urine Collection / Unknown 02/15/2022 2:02 PM EDT 02/15/2022 2:59 PM EDT Yue Dominguez GYNAECOLOGICAL ONCOLOGIST URINE ORDERABLES Final Res ult [facility] [address] [place] [address] * PSA, total (Q) (09/09/2021 9:01 AM EDT) Prostate Specific Antigen Total 0.44 < OR = 4.00 ng/mL [facility] Comment: The total PSA value from this assay system is standardized against the WHO standard. The test result will be approximately 20% lower when compared to the equimolar-standardized total PSA (Jana Lui). Comparison of serial PSA results should be [...] Comment Performing Lab: ?Site ID: [id number] ?Name: [employer] ?Address: [address] [place] [address], [place] [address] ?Director: Yadira Bowman M.D. us Deep Pruitt GYNAECOLOGICAL ONCOLOGIST LAB BLOOD ORDERABLES Final Result [facility] [address] * Colonoscopy (09/03/2020 10:16 AM EDT) [facility] Colonoscopy [facility] Endoscopy Patient Name: Darrel Bhardwaj ? Procedure Date: 09/03/2020 10:16 AM ?Date of : 1970 Age: 50 ? Admit Type: Outpatient Gender: Male ?CSN #: [id number] Note Status: Finalized ?Procedure Date no Time: [...] bowel preparation was evaluated using the BBPS ([place] ? Bowel Preparation Scale) with scores of: [...] Procedure Code(s): ?? --- Professional --- ? 05285, Colonoscopy, flexible; with biopsy, single or ? multiple Diagnosis Code(s): ?? --- Professional --- ? Z86.010, Personal history of colonic polyps ? D12.0, Benign neoplasm of cecum CPT copyright 2018 [employer]. All rights reserved. The codes documented in this report are preliminary and upon pipe and tank fabricator review may be revised to meet current [...] In: 10:41:36 AM Scope Out: 10:58:33 AM [facility] 09/03/2020 10:1 6 AM EDT Provider Not In System GI PROCEDURE ORDERABLES F inal Result Performing Organization Address [facility] Co de Phone Number [facility] * Hepatitis C Ab with reflex to HCV PCR (02/06/2020 7:18 AM EDT) Hepatitis C Antibody Negative Negative 02/06/2020 4:21 PM EDT [facility] Comment:A negative result do es not exclude HCV infection, since antibodies are not detectable for 4-8 weeks after initial infection, or may not develop in compromised hosts. In high-risk individuals, repeat antibody testing in 2 months and/or HCV RNA PCR should be considered. Blood Venipuncture / Unknown 02/06/2020 7:18 AM EDT 02/06/2020 8:06 AM EDT Jordyn [place] GYNAECOLOGICAL ONCOLOGIST LAB BLOOD ORDERABLES Fauzia l Result Performing Organization Address [facility] de Phone Number [facility] [address] [place] [address] * HIV 1/2 ag/ab, w/reflexes (Q) (12/10/2018 [...] ?? For additional information please refer to http://education.Zinc Ahead.Innovation Spirits/faq/SIB684 (This link is being provided for informational/ educational purposes only.) The performance of this assay has not been clinically validated in patients less than 2 years old. Blood 12/10/2018 10:3 2 AM EDT 12/10/2018 10:32 AM EDT Carlos Eduardo Joyner MD LAB BLOOD ORDERABLES Fi nal Result [facility] [address] [place] [address] from Last 3 Months or Most Recently Relevant to Health Maintenance Insurance [place] Advance Directives * Full ACLS (Latest Code Status on File) Date Activated Date Inactivated Comments 02/04/2020 9:46 PM 02/07/2020 8:23 PM Question Answer Comments With Whom was the Code Status Discussed? Patient Care Teams Colorer Relationship Specialty Start Date End Date Deep Pruitt APRN PCP - General 05/22/19
--- OUTSIDE RECORDS SUMMARY | 2024-06-17 13:22 | XMS_ITS | Encounter Summary ---
Author Organization [facility] Address [address] [place] [address] Care Team Providers Care Yeast Fermentation Attendant Name Role Phone Deep Pruitt APRN Primary Care Provider Encounter Details Date Type Department Care Team ([facility] st Contact Info) Description 06/21/2022 Scanned Document [facility] [address] [place], [place] [phone] Deep Pruitt APRN [address] [place] [address] Social History Tobacco Use Types [...] you attend chur ch or pentecostal services? More than 4 times per year [...] Date Recorded PHQ-2 Total Score 2 02/17/2022 [facility] Questionnaire Answer Date [...] your living situation today? I have a [facility] place to live 05/19/2022 Sex and [...] documented as of this encounter Care Teams Yeast Fermentation Attendant Relationship Specialty Start Date End Date Deep Pruitt APRN PCP - General 05/22/19 documented as of this encounter
--- OUTSIDE RECORDS SUMMARY | 2024-06-17 13:22 | XMS_ITS | Encounter Summary ---
Author Organization [employer] Address [address] [facility] [address] [place] [address] Care Team Providers Care Abrasive Grader Name Role Phone Katrin Santoyo MD Primary Care Pro vider Edison Vieira MD Unavailable Joe Devi MD Unavailable [phone] Reason for Visit * Reason Onset Date Comments Nurse Triage 05/30/2024 Encounter Details Date Type Department Care Team (Late st Contact Info) Description 05/30/2024 Telephone [facility] [address] [place], [place] [phone] Katrin Santoyo MD [address] [place], [place] [phone] Nurse Triage Social History Tobacco Use Types [...] below from Covering Dr. Antonia Taylor MD [facility] Team [id number] hours ago (4:08 PM) AE Please see note from ronda Suarez RN. Pt should be seen at [facility] for med titration for HTN Call to Darrel Cortes, offered appt today but pt declines states has conflicting appts. Unableto recheck BP during call as patient states just woke up. Pt agrees to seek [facility] tomorrow for eval. Reviewed parameters to call back if BP >140/90. * Telephone Encounter - Ronda Suarez RN - 05/30/2024 11:09 AM EST Call to Darrel Cortes for BP check, spoke with spouse states pt is asleep but [facility]NA did recheck and was a little lower. Spouse rechecked with this financial writer on the line and BP reading of 160/95. Still elevated. Denies pt having any sx of CP, VILLANUEVA or dizziness. Pt unable to come in to [facility] today. Advised will forward to a covering [...] for suture removal at that time. Reviewed [facility] operating hours and that wait times vary. [...] acuity questions The caller accepted this outcome. [phone] (Myrtle) documented in this encounter Plan of Treatment Upcoming Encounters Date Type Department Care Team (Late st Contact Info) Description 07/02/2024 11:00 AM EST Office Visit [facility] [address] [place] [address] documented as of this encounter Goals Goal [...] documented as of this encounter Care Teams Abrasive Grader Relationship Specialty Start Date End Date Katrin Santoyo MD [address] [place] [id number] PCP - General Internal Medicine 12/13/22 Edison Vieira MD [address] [place] [address] Pulmonary Disease 04/07/24 Joe Devi MD [address] [place] [address] Gastroenterology 04/07/24 Carito Roche DNP [address], [address] [place] [address] Nephrology 04/07/24 [employer] 04/11/24 documented as of this encounter
--- OUTSIDE RECORDS SUMMARY | 2024-06-17 13:22 | XMS_ITS | Encounter Summary ---
Author Organization [facility] [employer] [facility] Address [address] [place] [phone] Care Team Providers Care Liner Installer Name Role Phone Deep Pruitt APRN Primary Care Provider Encounter Details Date Type Department Care Team (Late st Contact Info) Description 08/05/2021 Orders Only [facility] [address] [place] [address] Carolyn Marin MD [address] [place] [phone] Essential hypertension Social History Tobacco Use [...] Date Recorded PHQ-2 Total Score 4 07/13/2021 [facility] of Occupat ional Health - [...] documented as of this encounter Care Teams Liner Installer Relationship Specialty Start Date End Date Deep Pruitt APRN PCP - General 05/22/19 documented as of this encounter
--- OUTSIDE RECORDS SUMMARY | 2024-06-17 13:22 | XMS_ITS | Encounter Summary ---
Author Organization [facility] Address [address] [place] [address] Care Team Providers Care Vending Machine Attendant Name Role Phone Romelia Pruittian Niko LOPEZ Primary Care Provider Encounter Details Date Type Department Care Team (Late st Contact Info) Description 08/09/2021 Scanned Document [facility] [address] [place] [address] External, Provider Social History Tobacco Use Types [...] Date Recorded PHQ-2 Total Score 4 07/13/2021 [facility] of Occupat [...] documented as of this encounter Care Teams Vending Machine Attendant Relationship Specialty Start Date End Date Deep Pruitt APRN PCP - General 05/22/19 documented as of this encounter
== END 2024-06-17 13:03 | disposition home or self-care (01) ==
LOC: HO.HBST 12:10
PROVIDERS: PCP Student in an Organized Health Care Education/Training Program; Visit Provider Counselor Mental Health
DX: F32.1 Major depressive disorder, single episode, moderate (principal); F41.9 Anxiety disorder, unspecified
CPT/HCPCS: 90837

== ENCOUNTER → 2024-06-20 13:30 | Outpatient (BNVA) | payer MEDICAID, SELFPAY | PROVIDERS: PCP Student in an Organized Health Care Education/Training Program; Visit Provider Physician Assistant Surgical ==

== ENCOUNTER 2024-06-21 11:54 | Outpatient (AMB) | payer MEDICAID, SELFPAY ==
--- NOTE | 2024-06-21 12:02 | HO.NEPHOV_ITS ---
Vital Signs 06/21/24 12:11 Height 5 ft 9 in Weight 263 lb BMI 38.8 BP 140/80 H Blood Pressure Location Rt brachial Position Sitting Pulse 102 H Pulse Source Pulse Oximeter Pulse Oximetry (%) 97 Oxygen Delivery Method Room Air Intake Visit Reasons: 1mon follow-up w/labs/ Conf Snowsport Instructor Required: Yes Snowsport Instructor Language: Log Handler Services: Snowsport Instructor Present Snowsport Instructor Name: Randal [id number] Accompanied by: Spouse Allergies Penicillins [PENICILLINS] Allergy (Intermediate, Verified 06/21/24 12:11) RASH, DIFFICULTY BREATHING HPI Comments Details: Darrel is a 53 y/o male with a medical history of longstanding DMII, REGI, HTN, HLD, CVA with hemiparesis (reports in 2019), DM II, REGI, gout, GERD, rheumatoid arthritis and CKD3b. He is seen in follow up today. He is being enrolled in study now. In Mar 2024 for pneumonia, had NICOLAS (creatinine increased to 3.35 from baseline 2.23). Creatinine trended down & stable. (unclear what patient was taking, poor historian) .patient has elevated urine protein/creatinine ratio of ~14 .renal ultrasound from 03/25 unremarkable- bilateral pelviectasis without trevor hydronephrosis. serum immunofixation with faint IgG kappa monoclonal band present . Last vitamin D mildly low at 17, PTH elevated at 498, calcium normal at 9.2. Has been having high HbA1c which is getting better as per the patient. [facility] Medical History (Updated 06/10/24 @ 09:50 by Joy Fry [facility]) HTN (hypertension) Leukocytosis Memory loss Obesity Idiopathic gout of multiple sites GERD (gastroesophageal reflux disease) Hypertensive chronic kidney disease Secondary hyperparathyroidism, renal Sleep apnea Type 2 diabetes mellitus Schizoaffective disorder Chronic pain syndrome Diabetic polyneuropathy Gout Surgical History History of esophagogastroduodenoscopy (EGD) H/O colonoscopy Family History Father Cancer Diabetes Mother Cancer Diabetes Colon cancer Family/Other Cancer Diabetes Social History Household Members: Spouse Housing: House Do you presently have visiting nurse or other home services: Yes Alcohol intake: never Patient Tobacco Use Status: Never used Tobacco service: No Review of Systems Const All systems reviewed & are unremarkable except as noted in HPI and below Physical Exam Vital Signs: Last Vital Signs Pulse 102 H 06/21/24 12:11 BP 140/80 H 06/21/24 12:11 Pulse Ox 97 06/21/24 12:11 Oxygen Delivery Method Room Air 06/21/24 12:11 BMI result Body Mass Index 38.8 Const General: comfortable and no acute distress Orientation/consciousness: patient oriented x3 HEENT Head: Yes normocephalic Mouth: Normal oral and palatal mucosa present Eyes EOM: EOMs intact bilaterally Neck Neck: Yes supple Resp Auscultation: clear to auscultation bilaterally Cardio Jugular venous distension: no JVD Rate: regular rate GI Palpation (GI): Soft to palpation Auscultation: normal bowel sounds General: Yes no CVA tenderness Back/Spine/Pelvis Back: no CVA tenderness Skin General skin exam: no rashes or lesions noted Neuro General: patient oriented x3 and moves all extremities Extrem General: Yes no pedal edema Results Reviewed Nephrology Results: Sodium 140 mmol/L (135-145) 06/11/24 Potassium 4.9 mmol/L (3.3-5.1) 06/11/24 Chloride 109 mmol/L (96-108) H 06/11/24 Carbon Dioxide 23 mmol/L (22-29) 06/11/24 BUN 36 mg/dL (9-16) H 06/11/24 Creatinine 3.22 mg/dL (0.5-1.4) H 06/11/24 Assessment & Plan Assessment & Plan (1) CKD (chronic kidney disease) stage 4, GFR 15-29 ml/min: Code(s): N18.4 - Chronic kidney disease, stage 4 (severe) Category: Medical (2) Diabetic nephropathy associated with type 2 diabetes mellitus: Code(s): E11.21 - Type 2 diabetes mellitus with diabetic nephropathy Category: Medical (3) Secondary hyperparathyroidism: Code(s): N25.81 - Secondary hyperparathyroidism of renal origin Category: Medical (4) Vitamin D deficiency: Code(s): E55.9 - Vitamin D deficiency, unspecified Category: Medical (5) HTN (hypertension): Code(s): I10 - Essential (primary) hypertension Category: Medical Qualifiers: Hypertension type: primary hypertension Qualified Code(s): I10 - Essential (primary) hypertension (6) Proteinuria: Code(s): R80.9 - Proteinuria, unspecified Category: Medical Qualifiers: Proteinuria type: persistent Qualified Code(s): R80.1 - Persistent proteinuria, unspecified Plan CKD due to diabetic nephropathy. Has a faint monoclonal band present on workup. patient to continue furosemide 40mg once daily, He is on Jardiance. will consider re-starting low-dose CALEB/ARB for proteinuria (held due to recent NICOLAS). On Vitamin D. Volume status optimal. BP at home OK. No NSAID's. Good hydration. Being enrolled in study. Answered all questions. F/U labs ordered. Orders: Orders MR vega wo con Today Carlos Eduardo Thomas MD N18.4 - Chronic kidney disease, stage 4 (severe) Electrolytes 1 Month Grayson Rodriguez MD E11.21 - Type 2 diabetes mellitus with diabetic nephropathy, E55.9 - Vitamin D deficiency, unspecified, I10 - Essential (primary) hypertension, N18.4 - Chronic kidney disease, stage 4 (severe), N25.81 - Secondary hyperparathyroidism of renal origin, R80.1 - Persistent proteinuria, unspecified Creatinine 1 Month Grayson Rodriguez MD E11.21 - Type 2 diabetes mellitus with diabetic nephropathy, E55.9 - Vitamin D deficiency, unspecified, I10 - Essential (primary) hypertension, N18.4 - Chronic kidney disease, stage 4 (severe), N25.81 - Secondary hyperparathyroidism of renal origin, R80.1 - Persistent proteinuria, unspecified Blood Urea Nitrogen 1 Month Grayson Rodriguez MD E11.21 - Type 2 diabetes mellitus with diabetic nephropathy, E55.9 - Vitamin D deficiency, unspecified, I10 - Essential (primary) hypertension, N18.4 - Chronic kidney disease, stage 4 (severe), N25.81 - Secondary hyperparathyroidism of renal origin, R80.1 - Persistent proteinuria, unspecified Coding Level of Care Code Est Pt Level 4 (81947) Diagnoses CKD (chronic kidney disease) stage 4, GFR 15-29 ml/min N18.4 Diabetic nephropathy associated with type 2 diabetes mellitus E11.21 Secondary hyperparathyroidism N25.81 Vitamin D deficiency E55.9 Primary hypertension I10 Hypertension type: primary hypertension Persistent proteinuria R80.1 Proteinuria type: persistent
[2024-06-21 12:11] VITALS: BP 140/80; PULSE 102; O2SAT 97; BMI 38.8
--- OUTSIDE RECORDS SUMMARY | 2024-06-21 12:32 | XMS_ITS | Encounter Summary ---
Author Organization [facility] Address [address] [place] [address] Care Team Providers Care Rod Pointer Name Role Phone Deep Pruitt APRN Primary Care Provider [phone] Reason for Visit * Reason Comments Medication Refill Encounter Details Date Type Department Care Team ([facility] st Contact Info) Description 06/07/2022 Refill [facility] [address] [place], [place] [phone] Deep Pruitt APRN [address] [place] [address] Medication Refill Social History Tobacco [...] you attend chur ch or lutheran services? More than 4 times per year [...] Date Recorded PHQ-2 Total Score 2 02/17/2022 [facility] of Occupat ional Health [...] your living situation today? I have a [facility] place to live 05/19/2022 Sex and Gender [...] documented as of this encounter Care Teams Rod Pointer Relationship Specialty Start Date End Date Deep Pruitt APRN PCP - General 05/22/19 documented as of this encounter
--- OUTSIDE RECORDS SUMMARY | 2024-06-21 12:32 | XMS_ITS | Encounter Summary ---
Author Organization [employer] Address 75 [facility] 7t [place] [address] Care Team Providers Care Boat Engines Installer Name Role Phone Katrin Santoyo MD Primary Care Pro vider Edison Vieira MD Unavailable [phone] Joe Devi MD Unavailable [phone] Reason for Visit * Reason Onset Date Comments FYI 06/06/2024 Encounter Details Date Type Department Care Team ([facility] st Contact Info) Description 06/06/2024 Telephone [facility] MEDICINE 230 [place], [place] [phone] Katrin Santoyo MD 230 [place], [place] [phone] FY Social History Tobacco Use Types Packs/Day [...] nursing. If any questions contact Becky at [phone] documented in this encounter Plan of Treatment Upcoming Encounters Date Type Department Care Team (Late st Contact Info) Description 07/02/2024 11:00 AM EST Office Visit [facility] MEDICINE [address] [place] [address] documented as of this encounter Goals Goal [...] as of this encounter Care Teams Boat Engines Installer Relationship Specialty Start Date End Date Katrin Santoyo MD [address] [place] [address] PCP - General Internal Medicine 12/13/22 Edison Vieira MD 5 [place] [address] Pulmonary Disease 04/07/24 Joe Devi MD [address] [place] [address] 3rd [place] [address] Gastroenterology 04/07/24 Carito Roche DNP 10 [facility], [address] [place] [address] Nephrology 04/07/24 Cloud Floor 04/11/24 documented as of this encounter
--- OUTSIDE RECORDS SUMMARY | 2024-06-21 12:32 | XMS_ITS | Encounter Summary ---
Author Organization [employer] Address 75 [facility] 7t [place] [address] Care Team Providers Care Software Implementation Project Manager Name Role Phone Katrin Santoyo MD Primary Care Pro vider Edison Vieira MD Unavailable [phone] Joe Devi MD Unavailable Reason for Visit * Reason Onset Date Comments No Show 06/10/2024 Encounter Details Date Type Department Care Team (Late st Contact Info) Description 06/10/2024 Telephone [facility] MEDICINE 230 [place], [place] [phone] Shirin Albarran MD 230 [place], [place] [phone] No Show Social History Tobacco Use Types [...] Description 07/02/2024 11:00 AM EST Office Visit [facility] MEDICINE [address] [place] [address] documented as of this encounter Goals Goal [...] documented as of this encounter Care Teams Software Implementation Project Manager Relationship Specialty Start Date End Date Katrin Santoyo MD [address] [place] [address] PCP - General Internal Medicine 12/13/22 Edison Vieira MD 5 [place] [address] Pulmonary Disease 04/07/24 Joe Devi MD 11 [facility] 3rd [place] [address] Gastroenterology 04/07/24 Carito Roche DNP 10 [facility], [address] [place] [address] Nephrology 04/07/24 [employer] 04/11/24 documented as of this encounter
--- OUTSIDE RECORDS SUMMARY | 2024-06-21 12:32 | XMS_ITS | Encounter Summary ---
Author Organization [facility] [employer] and [facility] Address [address] [place] [address] Care Team Providers Care Senior Professional Services Consultant Name Role Phone Deep Pruitt APRN Primary Care Provider Reason for Visit * Reason Comments DME Encounter Details Date Type Department Care Team ([facility] st Contact Info) Description 05/04/2022 Documentation Sleep Medicine Program at [address] [place] [address] [phone] Jarad De Leon MD [address] [place] [phone] Social History Tobacco Use Types Packs/Day [...] Date Recorded PHQ-2 Total Score 2 02/17/2022 [facility] of Occupat [...] as of this encounter Care Teams Senior Professional Services Consultant Relationship Specialty Start Date End Date Deep Pruitt APRN PCP - General 05/22/19 documented as of this encounter
--- OUTSIDE RECORDS SUMMARY | 2024-06-21 12:32 | XMS_ITS | Encounter Summary ---
Author Organization [employer] Address [address] [facility] [address] 7t [place] [address] Care Team Providers Care Sergeant At Arms Name Role Phone Katrin Santoyo MD Primary Care Pro vider Edison Vieira MD Unavailable [phone] Joe Devi MD Unavailable [phone] Encounter Details Date Type Department Care Team (Late st Contact Info) Description 06/11/2024 Telephone [facility] MEDICINE 230 [place] [address] Emili Cordero RN Social History Tobacco Use [...] - 06/11/2024 2:44 PM EST TC via turkmen speaking staff member Mattie Valentino, chronic pain group rescheduled for 07/02/24 @ 11am. * Telephone Encounter - Emili Cordero RN - 06/11/2024 2:44 PM EST ----- Message from Moriah Herbert sent at 06/10/2024 10:02 PM EST ----- Hi! I noticed that Mr. Bhardwaj was scheduled for a Monday non-health information managers group visit in a few weeks. I think someone from call center may have scheduled him by accident. Would it be possible to reschedule for a MORT[employer]ER group? Thanks documented in this encounter Plan of Treatment Upcoming Encounters Date Type Department Care Team (Late st Contact Info) Description 07/02/2024 11:00 AM EST Office Visit [facility] MEDICINE [address] [place] [address] documented as of this encounter Goals Goal [...] documented as of this encounter Care Teams Sergeant At Arms Relationship Specialty Start Date End Date Katrin Santoyo MD [address] [place] [address] PCP - General Internal Medicine 12/13/22 Edison Vieira MD 5 [place] [address] Pulmonary Disease 04/07/24 Joe Devi MD 11 [facility] 3rd [place] [address] Gastroenterology 04/07/24 Carito Roche DNP 10 [facility], [address] [place] [address] Nephrology 04/07/24 [employer] 04/11/24 documented as of this encounter
--- OUTSIDE RECORDS SUMMARY | 2024-06-21 12:32 | XMS_ITS | Encounter Summary ---
Author Organization [facility] Address [address] [place] [address] Care Team Providers Care Pipe Layer Name Role Phone Deep Pruitt APRN Primary Care Provider Reason for Visit * Reason Comments Other Encounter Details Date Type Department Care Team ([facility] Contact Info) Description 05/24/2022 Telephone [facility] [address] [place] [address] Deep Pruitt APRN [address] [place] [phone] Other Social History Tobacco Use Types [...] you attend chur ch or hindu services? More than 4 times per year [...] Date Recorded PHQ-2 Total Score 2 02/[facility]20[facility] - [facility]ational Stress Questionnaire Answer Date [...] your living situation today? I have a [facility] place to live 05/19/2022 Sex and [...] AM EST Patient best call back number [phone]. Patient has an upcoming appt with his [...] as of this encounter Care Teams Pipe Layer Relationship Specialty Start Date End Date Deep Pruitt APRN PCP - General 05/22/19 documented as of this encounter
--- OUTSIDE RECORDS SUMMARY | 2024-06-21 12:33 | XMS_ITS | Encounter Summary ---
Author Organization [employer] Address [address] [facility] [address] 7t [place] [address] Care Team Providers Care Lead Electrical Controls Engineer Name Role Phone Katrin Santoyo MD Primary Care Pro vider Edison Vieira MD Unavailable [phone] Joe Devi MD Unavailable [phone] Reason for Visit * Reason Comments Med Refill Encounter Details Date Type Department Care Team ([facility] st Contact Info) Description 02/11/2024 Refill [facility] MEDICINE 230 [place] [address] Moriah Herbert FNP 505 [place] [address] Chronic radicular lumbar pain Social History Tobacco [...] Description 07/02/2024 11:00 AM EST Office Visit [facility] MEDICINE 230 [place] [address] documented as of this encounter Goals Goal [...] documented as of this encounter Care Teams Lead Electrical Controls Engineer Relationship Specialty Start Date End Date Katrin Santoyo MD 230 [place] [address] PCP - General Internal Medicine 12/13/22 Edison Vieira MD [address] [place] [address] Pulmonary Disease 04/07/24 Joe Devi MD [address] 3rd [place] [address] Gastroenterology 04/07/24 Carito Roche DNP [address], [address] [place] [address] Nephrology 04/07/24 [employer] 04/11/24 documented as of this encounter
--- OUTSIDE RECORDS SUMMARY | 2024-06-21 12:33 | XMS_ITS | Encounter Summary ---
Author Organization [employer] [facility] Address [address] [place] [phone] Care Team Providers Care Group Home Paraprofessional Name Role Phone Deep Pruitt JOHN Primary Care Provider [phone] Reason for Visit * Reason Comments Medication Refill Encounter Details Date Type Department Care Team (Late st Contact Info) Description 07/20/2020 Refill [facility] Podiatry at [address] [place] [phone] Arben Fountain, NOLVIA [address] [place] [address] Medication Refill Social History Tobacco Use [...] Answer Date Recorded PHQ-2 Score 2 07/07/2020 [facility] of Occupat ional [...] as of this encounter Care Teams Group Home Paraprofessional Relationship Specialty Start Date End Date Deep Pruitt APRN PCP - General 05/22/19 documented as of this encounter
--- OUTSIDE RECORDS SUMMARY | 2024-06-21 12:33 | XMS_ITS | Encounter Summary ---
Author Organization [employer] Address 75 [facility] 7t [place] [address] Care Team Providers Care Bread Wrapper Name Role Phone Katrin Santoyo MD Primary Care Pro vider Edison Vieira MD Unavailable Joe Devi MD Unavailable [phone] Reason for Visit * Reason Onset Date Comments Nurse Triage 06/06/2024 Encounter Details Date Type Department Care Team (Late st Contact Info) Description 06/06/2024 Telephone [facility] MEDICINE 230 [place], [place] [phone] Katrni Santoyo MD 230 [place], [place] [phone] Nurse Triage Social History Tobacco Use Types [...] returned to patient with BLS 'Roger # [id number]. Patient with noted elevated BP from PT [...] caller accepted this outcome. Contact pt at [phone] documented in this encounter Plan of Treatment Upcoming Encounters Date Type Department Care Team (Late st Contact Info) Description 07/02/2024 11:00 AM EST Office Visit [facility] MEDICINE 230 [place] [address] documented as of this encounter Goals Goal [...] documented as of this encounter Care Teams Bread Wrapper Relationship Specialty Start Date End Date Katrin Santoyo MD [address] [place] [address] PCP - General Internal Medicine 12/13/22 Edison Vieira MD 5 [place] [address] Pulmonary Disease 04/07/24 Joe Devi MD 11 [facility] 3rd [place] [address] Gastroenterology 04/07/24 Carito Roche, [address], [address] [place] [address] Nephrology 04/07/24 [employer] 04/11/24 documented as of this encounter
--- OUTSIDE RECORDS SUMMARY | 2024-06-21 12:33 | XMS_ITS | Encounter Summary ---
Author Organization [employer] [facility] Address [address] [place] [address] Care Team Providers Care Dispensing And Measuring Optician Name Role Phone Deep Pruitt APRN Primary Care Provider Reason for Visit * Reason Comments Medication Refill Encounter Details Date Type Department Care Team ([facility] st Contact Info) Description 07/10/2020 Refill [facility] [address] [place] [address] Deep Pruitt APRN [address] [place] [phone] Medication Refill Social History Tobacco Use [...] often do you attend chur ch or pentecostalism services? Never 01/03/2020 Do you belong to [...] Date Recorded PHQ-2 Score 2 07/07/2020 [facility] of Occupat ional [facility] - Occupational Stress Questionnaire Answer Date [...] documented as of this encounter Care Teams Dispensing And Measuring Optician Relationship Specialty Start Date End Date Deep Pruitt APRN PCP - General 05/22/19 documented as of this encounter
--- OUTSIDE RECORDS SUMMARY | 2024-06-21 12:33 | XMS_ITS | Encounter Summary ---
Author Organization [employer] [facility] Address [address] [place] [address] Care Team Providers Care Senior Hydrogeologist Name Role Phone Deep Pruitt APRN Primary Care Provider Reason for Visit * Reason Comments Medication Refill Encounter Details Date Type Department Care Team ([facility] st Contact Info) Description 07/29/2020 Refill [facility] TRANSITION 911 [place], [place] [phone] Deep Pruitt, JOHN [address] [place] [phone] Medication Refill Social History Tobacco Use [...] [facility] of Occupat ional [facility] - Occupational Stress Questionnaire Answer Date [...] as of this encounter Care Teams Senior Hydrogeologist Relationship Specialty Start Date End Date Deep Pruitt APRN PCP - General 05/22/19 documented as of this encounter
--- OUTSIDE RECORDS SUMMARY | 2024-06-21 12:33 | XMS_ITS | Encounter Summary ---
Author Organization [employer] Address 75 [facility] 7t [place] [address] Care Team Providers Care Slate Cutter Operator Name Role Phone Katrin Santoyo MD Primary Care Pro vider Edison Vieira MD Unavailable [phone] Joe Devi MD Unavailable [phone] Reason for Visit * Reason Onset Date Comments Error (VOID this visit) 06/05/2024 Encounter Details Date Type Department Care Team ([facility] Contact Info) Description 06/05/2024 Telephone [facility] MED & PEDS 505 [place] [address] Gabriela Rea, RN 505 [place] [address] Error (VOID this visit) Social History Tobacco [...] 11:00 AM EST Office Visit [facility] MEDICINE [address] [place] [address] documented as of this encounter Goals Goal [...] documented as of this encounter Care Teams Slate Cutter Operator Relationship Specialty Start Date End Date Katrin Santoyo MD 230 [place] [address] PCP - General Internal Medicine 12/13/22 Edison Vieira MD [address] [place] [address] Pulmonary Disease 04/07/24 Joe Devi MD [address] 3rd [place] [address] Gastroenterology 04/07/24 Carito Roche DNP [address], [address] [place] [address] Nephrology 04/07/24 [employer] 04/11/24 documented as of this encounter
--- OUTSIDE RECORDS SUMMARY | 2024-06-21 12:34 | XMS_ITS | Encounter Summary ---
Author Organization [employer] Address 75 [facility] 7t [place] [address] Care Team Providers Care Brass And Wind Instrument Repairer Name Role Phone Katrin Santoyo MD Primary Care Pro vider Edison Vieira MD Unavailable [phone] Joe Devi MD Unavailable [phone] Reason for Visit * Reason Onset Date Comments Durable Medical Equipment 11/08/2023 Encounter Details Date Type Department Care Team (Late st Contact Info) Description 11/08/2023 Telephone [facility] MEDICINE 230 [place], [place] [phone] Katrin Santoyo MD 230 [place], [place] [phone] Durable Medical Equipment Social History Tobacco Use [...] 11/10/2023 11:01 AM EDT Call placed to [employer] spoke to Zhen who was informed on 10/31/23 we faxed over RX with the qty on it. He reports that what they need is the letter of medical necessity not the Rx. He reports he will fax it to blue team at [phone] and once signed and faxed back it will be all set. Awaiting do cument. * Telephone Encounter - Mauricio Taylor - 11/08/2023 3:57 PM EDT Tc from Tanya at [employer] line calling to report the DME is missing the quantity and the description please sign and refax documented in this encounter Plan of Treatment Upcoming Encounters Date Type Department Care Team (Late st Contact Info) Description 07/02/2024 11:00 AM EST Office Visit [facility] MEDICINE [address] [place] [address] documented as of this encounter Goals Goal [...] documented as of this encounter Care Teams Brass And Wind Instrument Repairer Relationship Specialty Start Date End Date Katrin Santoyo MD [address] [place] [address] PCP - General Internal Medicine 12/13/22 Edison Vieira MD 5 [place] [address] Pulmonary Disease 04/07/24 Joe Devi MD 11 [facility] 3rd [place] [address] Gastroenterology 04/07/24 Carito Roche DNP 10 [facility], [address] [place] [address] Nephrology 04/07/24 [employer] 360 04/11/24 documented as of this encounter
--- OUTSIDE RECORDS SUMMARY | 2024-06-21 12:34 | XMS_ITS | Encounter Summary ---
Author Organization [employer] [facility] Address [address] [place] [address] Care Team Providers Care Vehicle Body Sander Name Role Phone Deep Pruitt APRN Primary Care Provider Reason for Visit * Reason Comments Medication Refill Encounter Details Date Type Department Care Team ([facility] st Contact Info) Description 06/19/2020 Refill [facility] SERVICES [address] [place] [address] Deep Pruitt APRN [address] [place] [phone] Medication Refill Social History Tobacco Use [...] documented as of this encounter Care Teams Vehicle Body Sander Relationship Specialty Start Date End Date Deep Pruitt APRN PCP - General 05/22/19 documented as of this encounter
--- OUTSIDE RECORDS SUMMARY | 2024-06-21 12:34 | XMS_ITS | Encounter Summary ---
Author Organization [employer] [facility] Address [address] [place] [address] Care Team Providers Care Manager Marketing Name Role Phone SonalDeep Niko LOPEZ Primary Care Provider [phone] Reason for Visit * Reason Comments Medication Refill Encounter Details Date Type Department Care Team (Late st Contact Info) Description 07/03/2020 Refill [facility] Nutrition at [address] [address] Zena Hines PA [address] [place] [phone] Medication Refill Social History Tobacco Use [...] Date Recorded PHQ-2 Score 2 07/07/2020 [facility] of [...] for Metformin received. Pt was engaging with [facility] and continues with PCP. Unclear [...]
--- OUTSIDE RECORDS SUMMARY | 2024-06-21 12:34 | XMS_ITS | Encounter Summary ---
Author Organization [employer] [facility] Address [address] [place] [phone] Care Team Providers Care Educational Technologist Name Role Phone Deep Pruitt JOHN Primary Care Provider Reason for Visit * Reason Comments Medication Refill Encounter Details Date Type Department Care Team (Late st Contact Info) Description 05/06/2021 Refill [facility] Podiatry at [address] [place] [phone] Arben Fountain, NOLVIA [address] [place] [address] Medication Refill Social History Tobacco Use [...] 0 04/21/2021 [facility]ational Stress Questionnaire Answer [...] documented as of this encounter Care Teams Educational Technologist Relationship Specialty Start Date End Date Deep Pruitt APRN PCP - General 05/22/19 documented as of this encounter
--- OUTSIDE RECORDS SUMMARY | 2024-06-21 12:34 | XMS_ITS | Encounter Summary ---
Author Organization [facility] Address [address] [place] [address] Care Team Providers Care Newspaper Copy Editor Name Role Phone Deep Pruitt APRN Primary Care Provider Encounter Details Date Type Department Care Team ([facility] st Contact Info) Description 06/25/2021 Telephone [facility] [address] [place] [address] Deep Pruitt APRN [address] [place] [address] Social History Tobacco Use Types [...] Date Recorded PHQ-2 Total Score 3 05/31/2021 [facility] of Occupat ional Health [...] documented as of this encounter Care Teams Newspaper Copy Editor Relationship Specialty Start Date End Date Deep Pruitt APRN PCP - General 05/22/19 documented as of this encounter
--- OUTSIDE RECORDS SUMMARY | 2024-06-21 12:34 | XMS_ITS | Encounter Summary ---
Author Organization [employer] [facility] Address [address] [place] [address] Care Team Providers Care Referral Coordinator Name Role Phone Deep Pruitt APRN Primary Care Provider Reason for Visit * Reason Comments Medication Refill Encounter Details Date Type Department Care Team ([facility] st Contact Info) Description 06/30/2021 Refill [facility] [address] [place], [place] [phone] Deep Pruitt APRN 911 [place] [address] Medication Refill Social History Tobacco [...] any clubs o r organizations such as hoahaoism groups, unions, fraternal or athletic groups, or [...] Date Recorded PHQ-2 Total Score 3 05/31/2021 [facility] of Occupat ional [...] documented as of this encounter Care Teams Referral Coordinator Relationship Specialty Start Date End Date Deep Pruitt APRN PCP - General 05/22/19 documented as of this encounter
--- OUTSIDE RECORDS SUMMARY | 2024-06-21 12:34 | XMS_ITS | Encounter Summary ---
Author Organization [facility] Address [address] [place] [address] Care Team Providers Care Production Engine Repairer Name Role Phone Deep Pruitt APRN Primary Care Provider Encounter Details Date Type Department Care Team (Late st Contact Info) Description 06/11/2021 Documentation [facility] 9 [facility], 2nd floor [facility], [address] [place], [place] [phone] Isha Brown APRN 6 [place] [address] Social History Tobacco Use Types [...] Date Recorded PHQ-2 Total Score 3 05/31/2021 [facility] of Occupat ional [...] documented as of this encounter Care Teams Production Engine Repairer Relationship Specialty Start Date End Date Deep Pruitt APRN PCP - General 05/22/19 documented as of this encounter
--- OUTSIDE RECORDS SUMMARY | 2024-06-21 12:34 | XMS_ITS | Encounter Summary ---
Author Organization [facility] Address [address] [place] [address] Care Team Providers Care Equity Trader Name Role Phone Deep Pruitt APRN Primary Care Provider [phone] Encounter Details Date Type Department Care Team ([facility] st Contact Info) Description 06/13/2020 Scanned Document [facility] [address] [place], [place] [phone] Deep Pruitt APRN [address] [place] [address] Social History Tobacco Use Types [...] Answer Date Recorded PHQ-2 Score 0 03/13/2020 [facility] of Occupat ional Health - Occupational Stress [...] documented as of this encounter Care Teams Equity Trader Relationship Specialty Start Date End Date Deep Pruitt APRN PCP - General 05/22/19 documented as of this encounter
--- OUTSIDE RECORDS SUMMARY | 2024-06-21 12:34 | XMS_ITS | Encounter Summary ---
Author Organization [facility] Address [address] [place] [address] Care Team Providers Care Bog Worker Name Role Phone Deep Pruitt APRN Primary Care Provider [phone] Reason for Visit * Reason Comments Medication Refill Encounter Details Date Type Department Care Team (Late st Contact Info) Description 06/19/2020 Refill [facility] [address] [place], [place] [address] Janel Cummins APRN [address] [place] [phone] Medication Refill Social History Tobacco Use Types [...] Answer Date Recorded PHQ-2 Score 0 03/13/2020 [facility] of Occupat ional Health - Occupational Stress [...] documented as of this encounter Care Teams Bog Worker Relationship Specialty Start Date End Date Deep Pruitt APRN PCP - General 05/22/19 documented as of this encounter
--- OUTSIDE RECORDS SUMMARY | 2024-06-21 12:34 | XMS_ITS | Encounter Summary ---
Author Organization [facility] Address [address] [place] [address] Care Team Providers Care Critical Care Nurse Practitioner Name Role Phone Deep Pruitt APRN Primary Care Provider Reason for Visit * Reason Comments Forms Encounter Details Date Type Department Care Team ([facility] Contact Info) Description 06/16/2020 Telephone [facility] [address] [place] [address] Depe Pruitt APRN [address] [place] [address] Forms Social History Tobacco Use Types [...] any clubs o r organizations such as shinto groups, unions, fraternal or athletic groups, or [...] update on handicap forms for pt. Call [phone] documented in this encounter Plan of Treatment [...] documented as of this encounter Care Teams Critical Care Nurse Practitioner Relationship Specialty Start Date End Date Deep Pruitt APRN PCP - General 05/22/19 documented as of this encounter
--- OUTSIDE RECORDS SUMMARY | 2024-06-21 12:35 | XMS_ITS | Encounter Summary ---
Author Organization [facility] Address [address] [place] [address] Care Team Providers Care Copyist Name Role Phone Deep Pruitt APRN Primary Care Provider [phone] Reason for Visit * Reason Comments Medication Refill Encounter Details Date Type Department Care Team ([facility] st Contact Info) Description 02/25/2022 Refill [facility] [address] [place], [place] [phone] Deep Pruitt, JOHN [address] [place] [phone] Medication Refill Social History Tobacco Use [...] Date Recorded PHQ-2 Total Score 2 02/17/2022 [facility] of Occupat ional [...] documented as of this encounter Care Teams Copyist Relationship Specialty Start Date End Date Deep Pruitt APRN PCP - General 05/22/19 documented as of this encounter
--- OUTSIDE RECORDS SUMMARY | 2024-06-21 12:35 | XMS_ITS | Encounter Summary ---
Author Organization [facility] Address [address] [place] [address] Care Team Providers Care Golf Tournament Consultant Name Role Phone Deep Pruitt APRN Primary Care Provider [phone] Reason for Visit * Reason Comments Other Encounter Details Date Type Department Care Team ([facility] Contact Info) Description 05/19/2020 Telephone [facility] [address] [place] [address] Deep Pruitt APRN [address] [place] [address] Other Social History Tobacco Use [...] Answer Date Recorded PHQ-2 Score 0 03/13/2020 [facility] of Occupat ional Health [...] to contact back. CCM: 10 minutes 05/19/2020 Milean Dial LPN * Telephone Encounter - Poonam Quiroga - 05/19/2020 11:04 AM EST Patient Sissy called and stated the patient would like to speak with his pcp Deep in regards to his gout, call back number is [phone] documented in this encounter Plan of Treatment [...] documented as of this encounter Care Teams Golf Tournament Consultant Relationship Specialty Start Date End Date Deep Pruitt APRN PCP - General 05/22/19 documented as of this encounter
--- OUTSIDE RECORDS SUMMARY | 2024-06-21 12:35 | XMS_ITS | Encounter Summary ---
Author Organization [facility] Address [address] [place] [address] Care Team Providers Care Manager Bank Name Role Phone Sonal Deep Niko LOPEZ Primary Care Provider [phone]- [phone] Reason for Visit * Reason Comments Medication Refill Encounter Details Date Type Department Care Team ([facility] st Contact Info) Description 05/05/2021 Refill [facility] [address] [place] [phone] Aliya Pond, [address] [address] Medication Refill Social History Tobacco [...] Date Recorded PHQ-2 Total Score 0 04/21/2021 [facility] [...] as of this encounter Care Teams Manager Bank Relationship Specialty Start Date End Date Deep Pruitt APRN PCP - General 05/22/19 documented as of this encounter
--- OUTSIDE RECORDS SUMMARY | 2024-06-21 12:35 | XMS_ITS | Encounter Summary ---
Author Organization [facility] Address [address] [place] [address] Care Team Providers Care Body Press Operator Name Role Phone Deep Pruitt APRN Primary Care Provider Reason for Visit * Reason Comments Other Advice Only Encounter Details Date Type Department Care Team ([facility] Contact Info) Description 10/20/2021 Telephone [facility] [address] [place] [address] Deep Pruitt APRN [address] [place] [address] Other; Advice Only Social History [...] Date Recorded PHQ-2 Total Score 0 10/12/2021 [facility] of Occupat ional [...] legs have not stops hurting. Contact number [phone] documented in this encounter Plan of Treatment Not on file documented as of this encounter Visit Diagnoses Not on filedocumented in this encounter Additional Health Concerns Assessment Noted Time PHQ-9 Depression Total Score: 0 10/13/19 22 2:23 PM EDT documented as of this encounter Care Teams Body Press Operator Relationship Specialty Start Date End Date Deep Pruitt APRN PCP - General 05/22/19 documented as of this encounter
--- OUTSIDE RECORDS SUMMARY | 2024-06-21 12:35 | XMS_ITS | Encounter Summary ---
Author Organization [facility] Address [address] [place] [address] Care Team Providers Care Pipe Fitter Gas Pipe Name Role Phone Deep Pruitt APRN Primary Care Provider Reason for Visit * Reason Comments Advice Only Other Encounter Details Date Type Department Care Team ([facility] Contact Info) Description 12/02/2021 Telephone [facility] [address] [place] [address] Deep Pruitt APRN [address] [place] [address] Advice Only; Other Social History [...] Recorded PHQ-2 Total Score 0 11/17/2021 [facility] of Occupat ional Health [...] Mira Rios - 12/02/2021 1:32 PM EDT [facility] - [address] calling in regards to med refill request for Carvedilol 25 mg and Gabapentin medications. Call back [phone] * Telephone Encounter - Leah Madera LPN - 12/02/2021 1:21 PM EDT Patient at * Telephone Encounter - Usha Kline - 12/02/2021 12:18 PM EDT Pt is having a lot of stomach pain on the left side and would like to speak with PCP or nurse. Requesting a call back. [facility] callback number [phone] Danish speaking documented in this encounter Plan of [...] as of this encounter Care Teams Pipe Fitter Gas Pipe Relationship Specialty Start Date End Date Deep Pruitt APRN PCP - General 05/22/19 documented as of this encounter
--- OUTSIDE RECORDS SUMMARY | 2024-06-21 12:35 | XMS_ITS | Encounter Summary ---
Author Organization [facility] Address [address] [place] [address] Care Team Providers Care Rocket Scientist Name Role Phone Deep Pruitt APRN Primary Care Provider Reason for Visit * Reason Comments Medication Problem Encounter Details Date Type Department Care Team ([facility] st Contact Info) Description 12/21/2021 Refill [facility] [address] [place] [address] Deep Pruitt APRN [address] [place] [address] Medication Problem Social History Tobacco [...] Date Recorded PHQ-2 Total Score 4 12/20/2021 [facility] of Occupat ional Health - Occupational [...] updated information the water pill. Call back [phone] * Telephone Encounter - Sarah Newman - 12/21/2021 1:05 PM EDT Best contact: [phone] Patient Sissy called and stated that she contacted [facility] on and they informed that the [...] documented as of this encounter Care Teams Rocket Scientist Relationship Specialty Start Date End Date Deep Pruitt APRN PCP - General 05/22/19 documented as of this encounter
--- OUTSIDE RECORDS SUMMARY | 2024-06-21 12:35 | XMS_ITS | Encounter Summary ---
Author Organization [facility] Address [address] [place] [address] Care Team Providers Care Complex Care Nurse Name Role Phone Sonal Deep Niko LOPEZ Primary Care Provider [phone]- [phone] Reason for Visit * Reason Comments Medication Refill Encounter Details Date Type Department Care Team ([facility] st Contact Info) Description 05/03/2021 Refill [facility] [address] [place] [phone] Aliya Pond, [address] [address] Medication Refill Social History Tobacco [...] Recorded PHQ-2 Total Score 0 04/21/2021 [facility] - Occupational Stress Questionnaire [...] documented as of this encounter Care Teams Complex Care Nurse Relationship Specialty Start Date End Date Deep Pruitt APRN PCP - General 05/22/19 documented as of this encounter
--- OUTSIDE RECORDS SUMMARY | 2024-06-21 12:35 | XMS_ITS | Encounter Summary ---
Author Organization [facility] Address [address] [place] [address] Care Team Providers Care Medical Program Specialist Name Role Phone Deep Pruitt APRN Primary Care Provider [phone] Reason for Visit * Reason Comments Medication Refill Encounter Details Date Type Department Care Team ([facility] st Contact Info) Description 05/27/2020 Telephone [facility] [address] [place] [address] Deep Pruitt APRN [address] [place] [address] Medication Refill Social History Tobacco [...] Answer Date Recorded PHQ-2 Score 0 03/13/2020 [facility] of Occupat ional [...] medications and request someone calls him at [phone] documented in this encounter Plan of Treatment [...] as of this encounter Care Teams Medical Program Specialist Relationship Specialty Start Date End Date Deep Pruitt APRN PCP - General 05/22/19 documented as of this encounter
--- OUTSIDE RECORDS SUMMARY | 2024-06-21 12:35 | XMS_ITS | Encounter Summary ---
Author Organization [facility] Address [address] [place] [address] Care Team Providers Care Voice Over Announcer Name Role Phone Sonal Deep Niko LOPEZ Primary Care Provider +1- [phone] Reason for Visit * Reason Comments Medication Refill Encounter Details Date Type Department Care Team ([facility] st Contact Info) Description 04/07/2021 Refill [facility] [address] [place] [address] [phone] Aliya Pond, [address] [address] Medication Refill Social History Tobacco [...] Score 1 03/24/2021 [facility] - Occupational Stress Questionnaire Answer [...] documented as of this encounter Care Teams Voice Over Announcer Relationship Specialty Start Date End Date Deep Pruitt APRN PCP - General 05/22/19 documented as of this encounter
--- OUTSIDE RECORDS SUMMARY | 2024-06-21 12:35 | XMS_ITS | Encounter Summary ---
Author Organization [facility] Address [address] [place] [address] Care Team Providers Care Multi Media Specialist Name Role Phone Deep Pruitt APRN Primary Care Provider Reason for Visit * Reason Comments Medication Refill Encounter Details Date Type Department Care Team ([facility] st Contact Info) Description 05/13/2020 Refill [facility] [email or web address] [address] [employer] [place], [place] [address] Deep Pruitt APRN [address] [place] [address] Medication Refill Social History Tobacco [...] Answer Date Recorded PHQ-2 Score 0 03/13/2020 [facility] of Occupat ional Health - Occupational Stress [...] documented as of this encounter Care Teams Multi Media Specialist Relationship Specialty Start Date End Date Deep Pruitt APRN PCP - General 05/22/19 documented as of this encounter
--- OUTSIDE RECORDS SUMMARY | 2024-06-21 12:35 | XMS_ITS | Encounter Summary ---
Author Organization [facility] Address [address] [place] [address] Care Team Providers Care Physical Geographer Name Role Phone Deep Pruitt APRN Primary Care Provider Reason for Visit * Reason Onset Date Comments Medication Refill 11/10/2021 Encounter Details Date Type Department Care Team (Late st Contact Info) Description 11/10/2021 Refill [facility] [address] [facility] 2nd [place] [address] Taylor Malagon, [facility] [address] [place] [phone] Medication Refill Social History Tobacco Use Types [...] [facility] of Occupat ional [facility] - Occupational Stress Questionnaire Answer Date [...] documented as of this encounter Care Teams Physical Geographer Relationship Specialty Start Date End Date Deep Pruitt APRN PCP - General 05/22/19 documented as of this encounter
--- OUTSIDE RECORDS SUMMARY | 2024-06-21 12:35 | XMS_ITS | Encounter Summary ---
Author Organization [facility] Address [address] [place] [address] Care Team Providers Care Cancellation Clerk Name Role Phone Deep Pruitt APRN Primary Care Provider Reason for Visit * Reason Comments Medication Refill Encounter Details Date Type Department Care Team ([facility] st Contact Info) Description 12/15/2021 Refill [facility] [address] [place], [place] [phone] Deep Pruitt APRN [address] [place] [address] Medication Refill Social History Tobacco [...] documented as of this encounter Care Teams Cancellation Clerk Relationship Specialty Start Date End Date Deep Pruitt APRN PCP - General 05/22/19 documented as of this encounter
--- OUTSIDE RECORDS SUMMARY | 2024-06-21 12:35 | XMS_ITS | Encounter Summary ---
Author Organization [facility] Address [address] [place] [address] Care Team Providers Care Clinical Nurse Occupational Medicine Name Role Phone Deep Pruitt APRN Primary Care Provider Reason for Visit * Reason Comments Medication Refill Encounter Details Date Type Department Care Team ([facility] st Contact Info) Description 03/19/2022 Refill [facility] [address] [place], [place] [phone] Deep Pruitt, JOHN [address] [place] [address] Medication Refill Social History Tobacco [...] as of this encounter Care Teams Clinical Nurse Occupational Medicine Relationship Specialty Start Date End Date Deep Pruitt APRN PCP - General 05/22/19 documented as of this encounter
--- OUTSIDE RECORDS SUMMARY | 2024-06-21 12:35 | XMS_ITS | Encounter Summary ---
Author Organization [facility] Address [address] [place] [address] Care Team Providers Care Mineralogy Teacher Name Role Phone Deep Pruitt APRN Primary Care Provider Reason for Visit * Reason Comments Medication Refill Encounter Details Date Type Department Care Team ([facility] st Contact Info) Description 05/18/2020 Refill [facility] [address] [place] [address] Deep Pruitt APRN [address] [place] [phone] Medication Refill Social History Tobacco Use [...] Answer Date Recorded PHQ-2 Score 0 03/13/2020 [facility] of Occupat ional Health [...] documented as of this encounter Care Teams Mineralogy Teacher Relationship Specialty Start Date End Date Deep Pruitt APRN PCP - General 05/22/19 documented as of this encounter
--- OUTSIDE RECORDS SUMMARY | 2024-06-21 12:35 | XMS_ITS | Encounter Summary ---
Author Organization [facility] Address [address] [place] [address] Care Team Providers Care Toddler Caregiver Name Role Phone Romelia Pruittian Niko LOPEZ Primary Care Provider Reason for Visit * Reason Onset Date Comments Medication Refill 11/19/2021 Encounter Details Date Type Department Care Team (Late st Contact Info) Description 11/19/2021 Refill [facility] [address] [place] [phone] Carlos Eduardo Joyner MD [address] [place] [phone] Medication Refill Social History Tobacco Use [...] Date Recorded PHQ-2 Total Score 0 11/17/2021 [facility] - Occupational Stress Questionnaire Answer Date [...] documented as of this encounter Care Teams Toddler Caregiver Relationship Specialty Start Date End Date Deep Pruitt APRN PCP - General 05/22/19 documented as of this encounter
--- OUTSIDE RECORDS SUMMARY | 2024-06-21 12:35 | XMS_ITS | Encounter Summary ---
Author Organization [facility] [employer] [facility] Address [address] [place] [address] Care Team Providers Care Metal Pickling Equipment Operator Name Role Phone Deep Pruitt APRN Primary Care Provider Reason for Visit * Reason Onset Date Comments Medication Refill 11/10/2021 Encounter Details Date Type Department Care Team (Late st Contact Info) Description 11/10/2021 Refill [facility] [address] [place] [address] Anahi Rossi, JOHN [address] [place] [address] Medication Refill Social History Tobacco [...] Date Recorded PHQ-2 Total Score 0 10/12/2021 [facility] of Occupat ional [facility] - Occupational Stress Questionnaire Answer [...] as of this encounter Care Teams Metal Pickling Equipment Operator Relationship Specialty Start Date End Date Deep Pruitt APRN PCP - General 05/22/19 documented as of this encounter
--- OUTSIDE RECORDS SUMMARY | 2024-06-21 12:35 | XMS_ITS | Encounter Summary ---
Author Organization [facility] Address [address] [place] [address] Care Team Providers Care Calender Wind Up Tender Name Role Phone SonalDeep Niko LOPEZ Primary Care Provider Reason for Visit * Reason Comments Medication Refill Encounter Details Date Type Department Care Team (Late st Contact Info) Description 04/07/2021 Refill [facility] Nutrition at [address] [address] Zena Hines PA [address] [place] [phone] Medication Refill Social History Tobacco Use [...] any clubs o r organizations such as alevism groups, unions, fraternal or athletic groups, or [...] Date Recorded PHQ-2 Total Score 1 03/24/2021 [facility] of Occupat ional Health - Occupational [...] seeing Zena Hines for DM management at [facility]. Thanks, Katrin documented in this encounter [...] as of this encounter Care Teams Calender Wind Up Tender Relationship Specialty Start Date End Date Deep Pruitt APRN PCP - General 05/22/19 documented as of this encounter
--- OUTSIDE RECORDS SUMMARY | 2024-06-21 12:35 | XMS_ITS | Encounter Summary ---
Author Organization [facility] Address [address] [place] [address] Care Team Providers Care Brake Engineer Name Role Phone Sonal Deep Niko LOPEZ Primary Care Provider [phone]- [phone] Reason for Visit * Reason Comments Medication Refill Encounter Details Date Type Department Care Team ([facility] st Contact Info) Description 05/10/2021 Refill [facility] [address] [place] [phone] Aliya Pond, [address] [address] Medication Refill Social History Tobacco [...] Date Recorded PHQ-2 Total Score 0 04/21/2021 [facility] - Occupational Stress [...] documented as of this encounter Care Teams Brake Engineer Relationship Specialty Start Date End Date Deep Pruitt APRN PCP - General 05/22/19 documented as of this encounter
--- OUTSIDE RECORDS SUMMARY | 2024-06-21 12:35 | XMS_ITS | Encounter Summary ---
Author Organization [facility] Address [address] [place] [address] Care Team Providers Care Day Care Aide Name Role Phone SonalDeep Niko LOPEZ Primary Care Provider Reason for Visit * Reason Comments Medication Refill Encounter Details Date Type Department Care Team (Late st Contact Info) Description 05/12/2020 Refill [facility] Nutrition at [address] [address] Zena Hines PA [address] [place] [address] Medication Refill Social History Tobacco [...] Answer Date Recorded PHQ-2 Score 0 03/13/2020 [facility] of Occupat ional Health - [...] Pike Please review pt no longer seeing [facility] Wellness Dept for DM management. Katrin Sullivan [...] documented as of this encounter Care Teams Day Care Aide Relationship Specialty Start Date End Date Deep Pruitt APRN PCP - General 05/22/19 documented as of this encounter
--- OUTSIDE RECORDS SUMMARY | 2024-06-21 12:35 | XMS_ITS | Encounter Summary ---
Author Organization [facility] Address [address] [place] [address] Care Team Providers Care Loan Coordinator Name Role Phone Romelia Pruittian Niko LOPEZ Primary Care Provider Encounter Details Date Type Department Care Team (Late st Contact Info) Description 03/18/2021 Scanned Document [facility] [address] [place] [address] External, Provider Social History Tobacco Use Types [...] Date Recorded PHQ-2 Total Score 2 03/10/2021 [facility] of Occupat ional Health - [...] as of this encounter Care Teams Loan Coordinator Relationship Specialty Start Date End Date Deep Pruitt APRN PCP - General 05/22/19 documented as of this encounter
--- OUTSIDE RECORDS SUMMARY | 2024-06-21 12:35 | XMS_ITS | Encounter Summary ---
Author Organization [facility] [employer] and [facility] Address [address] [place] [address] Care Team Providers Care Marketing Technologist Name Role Phone Deep Pruitt APRN Primary Care Provider Reason for Visit * Reason Onset Date Comments Medication Refill 11/19/2021 Encounter Details Date Type Department Care Team (Late st Contact Info) Description 11/19/2021 Refill [facility] 2nd [place] [address] Yue Dominguez APRN [address] [place] [phone] Medication Refill Social History Tobacco Use Types [...] Date Recorded PHQ-2 Total Score 0 11/17/2021 [facility] of Occupat ional Health - [...] documented as of this encounter Care Teams Marketing Technologist Relationship Specialty Start Date End Date Deep Pruitt APRN PCP - General 05/22/19 documented as of this encounter
--- OUTSIDE RECORDS SUMMARY | 2024-06-21 12:35 | XMS_ITS | Encounter Summary ---
Author Organization [facility] Address [address] [place] [address] Care Team Providers Care Insurance Agency Owner Name Role Phone Deep Pruitt JOHN Primary Care Provider Reason for Visit * Reason Comments Medication Refill Encounter Details Date Type Department Care Team (Late st Contact Info) Description 12/03/2021 Refill [facility] Pod[facility] at [address] [place] [phone] Arben Fountain, NOL[employer]IA [address] [place] [address] Medication Refill Social History Tobacco Use [...] Date Recorded PHQ-2 Total Score 0 11/17/2021 [facility] - Occupational Stress Questionnaire [...] as of this encounter Care Teams Insurance Agency Owner Relationship Specialty Start Date End Date Deep Pruitt APRN PCP - General 05/22/19 documented as of this encounter
--- OUTSIDE RECORDS SUMMARY | 2024-06-21 12:35 | XMS_ITS | Encounter Summary ---
Author Organization [facility] Address [address] [place] [address] Care Team Providers Care Produce Associate Name Role Phone Romelia Pruittian Niko LOPEZ Primary Care Provider Reason for Visit * Reason Onset Date Comments Medication Refill 11/10/2021 Encounter Details Date Type Department Care Team (Late st Contact Info) Description 11/10/2021 Refill [facility] [address] [facility] [address] [place] [phone] Anahi Rossi, JOHN [address] [place] [phone] Medication Refill Social History Tobacco Use [...] often do you attend chur ch or anabaptist services? Never 01/03/2020 Do you belong to [...] documented as of this encounter Care Teams Produce Associate Relationship Specialty Start Date End Date Deep Pruitt APRN PCP - General 05/22/19 documented as of this encounter
--- OUTSIDE RECORDS SUMMARY | 2024-06-21 12:35 | XMS_ITS | Encounter Summary ---
Author Organization [facility] Address [address] [place] [address] Care Team Providers Care Bargeman Name Role Phone Deep Pruitt APRN Primary Care Provider [phone] Reason for Visit * Reason Comments Medication Refill Encounter Details Date Type Department Care Team ([facility] st Contact Info) Description 03/08/2021 Refill [facility] [address] [place], [place] [phone] Deep Pruitt APRN [address] [place] [address] Medication Refill Social History Tobacco [...] often do you attend chur ch or evangelical services? Never 01/03/2020 Do you belong to [...] Date Recorded PHQ-2 Total Score 2 03/10/2021 [facility] of Occupat ional Health [...] documented as of this encounter Care Teams Bargeman Relationship Specialty Start Date End Date Deep Pruitt APRN PCP - General 05/22/19 documented as of this encounter
--- OUTSIDE RECORDS SUMMARY | 2024-06-21 12:35 | XMS_ITS | Encounter Summary ---
Author Organization [facility] Address [address] [place] [address] Care Team Providers Care Quality Head Name Role Phone Deep Pruitt APRN Primary Care Provider Reason for Visit * Reason Comments Medication Refill Encounter Details Date Type Department Care Team ([facility] st Contact Info) Description 11/17/2021 Refill [facility] [address] [place], [place] [phone] Deep Pruitt APRN [address] [place] [address] Medication Refill Social History Tobacco [...] Date Recorded PHQ-2 Total Score 0 11/17/2021 [facility] of Occupat ional Health [...] documented as of this encounter Care Teams Quality Head Relationship Specialty Start Date End Date Deep Pruitt APRN PCP - General 05/22/19 documented as of this encounter
--- OUTSIDE RECORDS SUMMARY | 2024-06-21 12:35 | XMS_ITS | Encounter Summary ---
Author Organization [facility] Address [address] [place] [address] Care Team Providers Care Blueprinting And Photocopy Supervisor Name Role Phone Deep Pruitt Niko LOPEZ Primary Care Provider [phone] Reason for Visit * Reason Comments Medication Refill Encounter Details Date Type Department Care Team (Late st Contact Info) Description 05/06/[address] [phone] Arben Fountain, NOLVIA [address] [place] [address] Medication Refill Social History Tobacco [...] Date Recorded PHQ-2 Score 0 03/13/2020 [facility] of Occupat ional Health - Occupational [...] documented as of this encounter Care Teams Blueprinting And Photocopy Supervisor Relationship Specialty Start Date End Date Deep Pruitt APRN PCP - General 05/22/19 documented as of this encounter
--- OUTSIDE RECORDS SUMMARY | 2024-06-21 12:35 | XMS_ITS | Encounter Summary ---
Author Organization [facility] Address [address] [place] [address] Care Team Providers Care Medical Assistant Ob Gyn Name Role Phone Deep Pruitt APRN Primary Care Provider Reason for Visit * Reason Comments Medication Refill Encounter Details Date Type Department Care Team ([facility] st Contact Info) Description 03/20/2021 Refill [facility] [address] [place] [address] Deep Pruitt APRN [address] [place] [phone] Medication Refill Social History Tobacco Use [...] 1 03/24/2021 [facility] of Occupat ional [...] as of this encounter Care Teams Medical Assistant Ob Gyn Relationship Specialty Start Date End Date Deep Pruitt APRN PCP - General 05/22/19 documented as of this encounter
--- OUTSIDE RECORDS SUMMARY | 2024-06-21 12:35 | XMS_ITS | Encounter Summary ---
Author Organization [facility] Address [address] [place] [address] Care Team Providers Care Display Card Writer Name Role Phone Romelia Pruittian Niko LOPEZ Primary Care Provider Encounter Details Date Type Department Care Team (Late st Contact Info) Description 11/30/2021 Scanned Document [facility] [address] [place] [address] External, Provider Social History Tobacco Use Types [...] Score 0 11/17/2021 [facility] of Occupat ional Health - [...] documented as of this encounter Care Teams Display Card Writer Relationship Specialty Start Date End Date Deep Pruitt APRN PCP - General 05/22/19 documented as of this encounter
--- OUTSIDE RECORDS SUMMARY | 2024-06-21 12:35 | XMS_ITS | Encounter Summary ---
Author Organization [facility] Address [address] [place] [address] Care Team Providers Care Compressed Gases Tester Name Role Phone Deep Pruitt JOHN Primary Care Provider Reason for Visit * Reason Comments Medication Refill Encounter Details Date Type Department Care Team (Late st Contact Info) Description 05/12/2021 Refill [facility] Podiatry at [address] [place] [phone] Arben Fountain, NOLVIA [address] [place] [address] Medication Refill Social History Tobacco [...] Score 0 04/21/2021 [facility] - Occupational Stress Questionnaire Answer [...] documented as of this encounter Care Teams Compressed Gases Tester Relationship Specialty Start Date End Date Deep Pruitt APRN PCP - General 05/22/19 documented as of this encounter
--- OUTSIDE RECORDS SUMMARY | 2024-06-21 12:35 | XMS_ITS | Encounter Summary ---
Author Organization [facility] Address [address] [place] [address] Care Team Providers Care Billing Typist Name Role Phone Deep Pruitt APRN Primary Care Provider Encounter Details Date Type Department Care Team (Late st Contact Info) Description 04/08/2021 Lab Requisition [facility] Specimens [address] [place] [address] Isha Brown APRN [address] [place] [address] Persons encountering health services in [...] Total Score 1 03/24/2021 [facility] - Occupational Stress Questionnaire [...] Date/Time Associated Diagnosis Comments BLOOD GAS, ARTERIAL ([facility]) Routine 04/08/2021 12:44 PM EST documented in this encounter Results * (ABNORMAL) Blood gas, arterial () (04/08/2021 12:44 PM EST) pH Arterial 7.37 7.35 - 7.45 units 04/08/2021 12:54 PM [facility] DEPARTMENT OF LABORATORY MEDICINE pCO2, Arterial 49(H) 32 - 48 mmHg 04/08/20 21 12:54 PM [facility] DEPARTMENT OF LABORATORY MEDICINE pO2, Arterial 65(L) 83 - 108 mmHg 04/08/2021 12:54 PM [facility] DEPARTMENT OF LABORATORY MEDICINE O2 Sat, Arterial 89(L) 94 - 98 % 04/08/20 12:54 PM [facility] DEPARTMENT OF LABORATORY MEDICINE Calculated HCO3, Arterial 27.5 21.0 - 28.0 mmol/L 04/08/2021 12:54 PM [facility] DEPARTMENT OF LABORATORY MEDICINE Base Excess, Arterial 2 -2 - 3 mmol/L 04/08/2021 12:54 PM [facility] DEPARTMENT OF LABORATORY MEDICINE Patient Temperature 37.0 Celsius 04/08/2021 12:54 PM EST [facility] DEPARTMENT OF LABORATORY MEDICINE FIO2 21 % 04/08/2021 12:54 PM EST [facility] DEPARTMENT OF LABORATORY MEDICINE Blood, Arterial 04/08/2021 1 2:44 PM EST 04/08/2021 12:45 PM EST us Isha Brown DOOR FRAMER LAB BLOOD ORDERABL ES Final Result Performing Organization Address City/State/[facility] de Phone Number [facility] DEPARTMENT OF LABORATORY MEDICINE [address] [place] [address] documented in this encounter Visit Diagnoses Diagnosis [...] documented as of this encounter Care Teams Billing Typist Relationship Specialty Start Date End Date Deep Pruitt APRN PCP - General 05/22/19 documented as of this encounter
--- OUTSIDE RECORDS SUMMARY | 2024-06-21 12:35 | XMS_ITS | Encounter Summary ---
Author Organization [facility] Address [address] [place] [address] Care Team Providers Care Distribution Lineman Name Role Phone Deep rPuitt APRN Primary Care Provider Encounter Details Date Type Department Care Team ([facility] st Contact Info) Description 10/27/2021 Scanned Document [facility] [address] [place], [place] [phone] Deep Pruitt APRN [address] [place] [address] Social History Tobacco Use Types [...] Date Recorded PHQ-2 Total Score 0 10/12/2021 [facility] of Occupat ional Health [...] documented as of this encounter Care Teams Distribution Lineman Relationship Specialty Start Date End Date Deep Pruitt APRN PCP - General 05/22/19 documented as of this encounter
--- OUTSIDE RECORDS SUMMARY | 2024-06-21 12:35 | XMS_ITS | Encounter Summary ---
Author Organization [facility] Address [address] [place] [address] Care Team Providers Care Trust And Estates Paralegal Name Role Phone GreltonDeep medina Niko LOPEZ Primary Care Provider +1-2 [phone] Reason for Visit * Reason Onset Date Comments Medication Refill 11/19/2021 Encounter Details Date Type Department Care Team (Late st Contact Info) Description 11/19/2021 Refill [facility] [address] [place] [address] Audelia Childs, DDS [address] [place] [address] Medication Refill Social History Tobacco [...] any clubs o r organizations such as hindu groups, unions, fraternal or athletic groups, or [...] Date Recorded PHQ-2 Total Score 0 11/17/2021 [facility] of Occupat ional Health - Occupational Stress [...] documented as of this encounter Care Teams Trust And Estates Paralegal Relationship Specialty Start Date End Date Deep Pruitt APRN PCP - General 05/22/19 documented as of this encounter
--- OUTSIDE RECORDS SUMMARY | 2024-06-21 12:35 | XMS_ITS | Encounter Summary ---
Author Organization [facility] [employer] [facility] and [facility] Address [address] [place] [address] Care Team Providers Care Disaster Recovery Analyst Name Role Phone Deep Pruitt APRN Primary Care Provider +[phone] Reason for Visit * Reason Comments DME Encounter Details Date Type Department Care Team (Late st Contact Info) Description 04/11/2022 Documentation Sleep Medicine Program at [address] [place] [address] Jarad De Leon MD [address] [place] [phone] Social History Tobacco Use Types Packs/Day [...] Date Recorded PHQ-2 Total Score 2 02/17/2022 [facility] of Occupat ional Health [...] documented as of this encounter Care Teams Disaster Recovery Analyst Relationship Specialty Start Date End Date Deep Pruitt APRN PCP - General 05/22/19 documented as of this encounter
--- OUTSIDE RECORDS SUMMARY | 2024-06-21 12:35 | XMS_ITS | Encounter Summary ---
Author Organization [facility] and [facility] Address [address] [place] [address] Care Team Providers Care Loader Engineer Name Role Phone Deep Pruitt APRN Primary Care Provider Reason for Visit * Reason Onset Date Comments Medication Refill 11/10/2021 Encounter Details Date Type Department Care Team (Late st Contact Info) Description 11/10/2021 Refill [facility] [address] [facility] [address] [facility] 2nd [place] [address] Taylor [place]agon, [facility] [address] [place] [phone] Medication Refill Social History Tobacco Use Types [...] PHQ-2 Total Score 0 10/12/2021 [facility] of Occupat ional [facility] - Occupational Stress Questionnaire Answer Date [...] today, but unknown at home. Defer to [facility] pharmacy team for antihypertensive management. Current [...] documented as of this encounter Care Teams Loader Engineer Relationship Specialty Start Date End Date Deep Pruitt APRN PCP - General 05/22/19 documented as of this encounter
--- OUTSIDE RECORDS SUMMARY | 2024-06-21 12:35 | XMS_ITS | Encounter Summary ---
Author Organization [facility] Address [address] [place] [address] Care Team Providers Care Talent Analyst Name Role Phone Deep Pruitt APRN Primary Care Provider +1-2 [phone] Reason for Visit * Reason Comments Medication Refill Encounter Details Date Type Department Care Team ([facility] st Contact Info) Description 12/18/2021 Refill [facility] [address] [place], [place] [phone] Deep Pruitt APRN [address] [place] [address] Medication Refill Social History Tobacco [...] Date Recorded PHQ-2 Total Score 4 12/20/2021 [facility] of Occupat ional Health - Occupational [...] documented as of this encounter Care Teams Talent Analyst Relationship Specialty Start Date End Date Deep Pruitt APRN PCP - General 05/22/19 documented as of this encounter
--- OUTSIDE RECORDS SUMMARY | 2024-06-21 12:35 | XMS_ITS | Encounter Summary ---
Author Organization [facility] Address [address] [place] [address] Care Team Providers Care Educational Program Director Name Role Phone Deep Pruitt JOHN Primary Care Provider Encounter Details Date Type Department Care Team (Late st Contact Info) Description 01/17/2019 Scanned Document [facility] [address] [place], [place] [phone] External, Provider Social History Tobacco Use Types [...] as of this encounter Care Teams Educational Program Director Relationship Specialty Start Date End Date Deep Pruitt APRN PCP - General 05/22/19 documented as of this encounter
--- OUTSIDE RECORDS SUMMARY | 2024-06-21 12:35 | XMS_ITS | Encounter Summary ---
Author Organization [facility] [employer] and [facility] Address [address] [place] [address] Care Team Providers Care Door Furring Installer Name Role Phone Deep Pruitt APRN Primary Care Provider Reason for Visit * Reason Onset Date Comments Medication Refill 11/19/2021 Encounter Details Date Type Department Care Team (Late st Contact Info) Description 11/19/2021 Refill [facility] [address] [facility] [address] [facility] 2nd [place] [address] Yue Dominguez APRN [address] [place] [phone] Medication Refill Social History Tobacco Use Types [...] often do you attend chur ch or adventism services? Never 01/03/2020 Do you belong to [...] as of this encounter Care Teams Door Furring Installer Relationship Specialty Start Date End Date Deep Pruitt APRN PCP - General 05/22/19 documented as of this encounter
--- OUTSIDE RECORDS SUMMARY | 2024-06-21 12:35 | XMS_ITS | Encounter Summary ---
Author Organization [facility] Address [address] [place] [address] Care Team Providers Care Alumni Coordinator Name Role Phone Sonal Deep Niko LOPEZ Primary Care Provider [phone]- [phone] Reason for Visit * Reason Comments Medication Refill Encounter Details Date Type Department Care Team ([facility] Contact Info) Description 04/12/2021 Refill [facility] [address] [place] [phone] Aliya Pond, [address] [address] Medication Refill Social History Tobacco [...] Date Recorded PHQ-2 Total Score 1 03/24/2021 [facility] [...] documented as of this encounter Care Teams Alumni Coordinator Relationship Specialty Start Date End Date Deep Pruitt APRN PCP - General 05/22/19 documented as of this encounter
--- OUTSIDE RECORDS SUMMARY | 2024-06-21 12:35 | XMS_ITS | Encounter Summary ---
Author Organization [facility] Address [address] [place] [address] Care Team Providers Care Bacteriologist Dairy Name Role Phone Deep Pruitt APRN Primary Care Provider Reason for Visit * Reason Comments Medication Refill Encounter Details Date Type Department Care Team ([facility] st Contact Info) Description 03/10/2021 Refill [facility] [address] [place] [address] Deep Pruitt APRN [address] [place] [phone] Medication Refill Social History Tobacco Use [...] Date Recorded PHQ-2 Total Score 2 03/10/2021 [facility] of Occupat ional Health - [...] documented as of this encounter Care Teams Bacteriologist Dairy Relationship Specialty Start Date End Date Deep Pruitt APRN PCP - General 05/22/19 documented as of this encounter
--- OUTSIDE RECORDS SUMMARY | 2024-06-21 12:36 | XMS_ITS | Encounter Summary ---
Author Organization [facility] Address [address] [place] [address] Care Team Providers Care Spiral Machine Operator Name Role Phone Deep Pruitt JOHN Primary Care Provider Encounter Details Date Type Department Care Team (Late st Contact Info) Description 09/26/2016 Scanned Document [facility] [address] [place], [place] [phone] External, Provider Social History Tobacco Use Types [...] documented as of this encounter Care Teams Spiral Machine Operator Relationship Specialty Start Date End Date Deep Pruitt APRN PCP - General 05/22/19 documented as of this encounter
--- OUTSIDE RECORDS SUMMARY | 2024-06-21 12:36 | XMS_ITS | Encounter Summary ---
Author Organization [facility] Address [address] [place] [address] Care Team Providers Care Slackline Operator Name Role Phone Deep Pruitt APRN Primary Care Provider Reason for Visit * Reason Comments Medication Refill Encounter Details Date Type Department Care Team ([facility] st Contact Info) Description 02/01/2021 Refill [facility] [address] [place], [place] [phone] Deep Pruitt APRN [address] [place] [address] Medication Refill Social History Tobacco [...] Date Recorded PHQ-2 Total Score 6 01/21/2021 [facility] of Occupat ional Health - [...] documented as of this encounter Care Teams Slackline Operator Relationship Specialty Start Date End Date Deep Pruitt APRN PCP - General 05/22/19 documented as of this encounter
--- OUTSIDE RECORDS SUMMARY | 2024-06-21 12:36 | XMS_ITS | Encounter Summary ---
Author Organization [facility] Address [address] [place] [address] Care Team Providers Care Fur Cutter Name Role Phone Deep Pruitt APRN Primary Care Provider [phone] Reason for Visit * Reason Comments Medication Refill Encounter Details Date Type Department Care Team ([facility] st Contact Info) Description 11/24/2020 Telephone [facility] [address] [place] [address] Deep Pruitt APRN [address] [place] [address] Medication Refill Social History Tobacco [...] Date Recorded PHQ-2 Total Score 0 11/18/2020 [facility] [...] of certain medication. Call back number is [phone] (bhutanese speaking) preferred pharmacy is [facility] [address] [address] documented in this encounter Plan [...] documented as of this encounter Care Teams Fur Cutter Relationship Specialty Start Date End Date Deep Pruitt APRN PCP - General 05/22/19 documented as of this encounter
--- OUTSIDE RECORDS SUMMARY | 2024-06-21 12:36 | XMS_ITS | Clinical Summary ---
Author Organization [facility] Address [address] [facility] [address] [place] [address] Phone Care Team Providers Care Second Floor Operator Name Role Phone Katrin Brumfield Primary Care [...] 4 12/04/19 25 Active ergocalciferol 1.25 MG (40456 [place]) capsule Take 1 capsule (50,000 Units [...] (01/25/2023): information and pathology [facility] 09-09-2020 note Asthma 01/06/2023 01/25/2023 Arthritis 01/06/2023 [...] Arben Fountain DPM at the [facility] -Will f/u with Pt in a month [...] (see MRI of Brain from 2017 under [facility] Multimedia -Significant deficits on neurologic exam Memory loss and Left handed weakness -Imaging and prior evaluation -Current blood thinning agents is aspirin -Potential details to include, when relevant: poor GAIT, uses a walker to get around -How the diagnosis was made: Pt lived in [facility] at the time, Under Multimedia in [facility] see specific file at specific date [id number].TIF Image MRI Result [facility] - MRI BRAIN CVA -09/25/2016 [id number] Image Evaluation [facility]- Left handed weakness note - [...] 2019, the Pt needs to call the [facility] [address] [place], [place] [phone] Diabetic foot 02/07/2019 01/25/2023 01/25/2023 Overview (01/25/2023): Last Assessment & Plan: The Pt continues to deal with bilateral foot pain and wears a pair of Diabetic shoes with specification ordered by his Chlorine Plant Operator Doctor Patient encounter status 02/07/2019 01/25/2023 Overview [...] -Pt will be called biweekly by the [facility] Nurse to review his FBS finger [...] medications -He has been following with the [facility] team and reports taking all of [...] decided to move [place] back [place] area due to being closer to family [...] Of [place] [address] [place] [address] Efren Quispe MD Stage 3b [...] [facility] [address] [phone] Isha Ruth ARNP [address] [address] Health Maintenance Due Date Last [...] Insurance [place] Care Teams Second Floor Operator Relationship Specialty Start Date End Date Katrin Brumfield [address] [place] [phone] PCP - General 04/17/23
--- OUTSIDE RECORDS SUMMARY | 2024-06-21 12:36 | XMS_ITS | Encounter Summary ---
Author Organization [facility] Address [address] [place] [address] Care Team Providers Care Business Continuity Global Director Name Role Phone TunneltonDeep medina Niko LOPEZ Primary Care Provider Encounter Details Date Type Department Care Team (Late st Contact Info) Description 02/19/2020 Scanned Document [facility] [address] [place], [place] [phone] Arben Fountain, NOLVIA [address] [place] [address] Social History Tobacco Use Types [...] Answer Date Recorded PHQ-2 Score 2 10/02/2019 [facility] of Occupat ional Health - Occupational Stress [...] as of this encounter Care Teams Business Continuity Global Director Relationship Specialty Start Date End Date Deep Pruitt APRN PCP - General 05/22/19 documented as of this encounter
--- OUTSIDE RECORDS SUMMARY | 2024-06-21 12:36 | XMS_ITS | Encounter Summary ---
Author Organization [facility] Address [address] [place] [address] Care Team Providers Care Circulation Manager Name Role Phone SonalDeep Niko LOPEZ Primary Care Provider [phone] Reason for Visit * Reason Comments Medication Refill Encounter Details Date Type Department Care Team (Late st Contact Info) Description 01/04/2021 Refill [facility] Nutrition at [address] [address] Zena Hines PA [address] [place] [phone] Medication Refill Social History Tobacco Use [...] Date Recorded PHQ-2 Total Score 0 11/18/2020 [facility] - [...] documented as of this encounter Care Teams Circulation Manager Relationship Specialty Start Date End Date Deep Pruitt APRN PCP - General 05/22/19 documented as of this encounter
--- OUTSIDE RECORDS SUMMARY | 2024-06-21 12:36 | XMS_ITS | Encounter Summary ---
Author Organization [facility] [employer] [facility] Address [address] [place] [address] Care Team Providers Care Commercial Coordinator Name Role Phone Deep Pruitt APRN Primary Care Provider Reason for Visit * Reason Onset Date Comments Medication Refill 10/12/2021 Encounter Details Date Type Department Care Team (Late st Contact Info) Description 10/12/2021 Refill [facility] [address] [facility] [address] [facility] 2nd [place] [address] Taylor Malagon, [facility] [address] [place] [phone] Medication Refill Social History Tobacco Use Types [...] Date Recorded PHQ-2 Total Score 0 10/12/2021 [facility] of Occupat ional [facility] - Occupational Stress Questionnaire Answer Date [...] documented as of this encounter Care Teams Commercial Coordinator Relationship Specialty Start Date End Date Deep Pruitt APRN PCP - General 05/22/19 documented as of this encounter
--- OUTSIDE RECORDS SUMMARY | 2024-06-21 12:36 | XMS_ITS | Encounter Summary ---
Author Organization [employer] Address [address] [facility] 7t [place] [address] Care Team Providers Care Paid Search Marketing Strategist Name Role Phone Elise Stanford VOLTAGE INSPECTOR Primary Care Provider [phone] Katrin Santoyo MD Primary Care Pro vider Edison Vieira MD Unavailable [phone] Joe Devi MD Unavailable Encounter Details Date Type Department Care Team (Late st Contact Info) Description 12/06/2022 Telephone [facility] MEDICINE [address] [place] [address] Susan Manzano LPN Social History Tobacco Use [...] glucose of 411 today. Call placed via riskmethods business administrator [phone] patient updated that BG this morning elevated. [...] Description 07/02/2024 11:00 AM EST Office Visit [facility] MED[facility] [address] [place] [address] documented as of this encounter Visit Diagnoses Not on filedocumented in this encounter Additional Health Concerns Assessment Noted Time PHQ-9 Depression Total Score: 24 023 2:05 PM EDT documented as of this encounter Care Teams Paid Search Marketing Strategist Relationship Specialty Start Date End Date Elise Stanford FNP PCP - General Family Medicine 11/24/22 12/12/22 Katrin Santoyo MD [address] [place] [address] PCP - General Internal Medicine 12/13/22 Edison Vieira MD [address] [place] [address] Pulmonary Disease 04/07/24 Joe Devi MD [address] 3rd [place] [address] Gastroenterology 04/07/24 Carito Roche DNP [address], [address] [place] [address] Nephrology 04/07/24 [employer] 04/11/24 documented as of this encounter
--- OUTSIDE RECORDS SUMMARY | 2024-06-21 12:36 | XMS_ITS | Encounter Summary ---
Author Organization [facility] Address [address] [place] [address] Care Team Providers Care Finishing And Shipping Supervisor Name Role Phone Deep Pruitt JOHN Primary Care Provider Encounter Details Date Type Department Care Team (Late st Contact Info) Description 01/02/2017 Scanned Document [facility] [address] [place], [place] [phone] Francisco Veloz PA [address] [place] [address] Social History Tobacco Use Types [...] documented as of this encounter Care Teams Finishing And Shipping Supervisor Relationship Specialty Start Date End Date Deep Pruitt APRN PCP - General 05/22/19 documented as of this encounter
--- OUTSIDE RECORDS SUMMARY | 2024-06-21 12:36 | XMS_ITS | Encounter Summary ---
Author Organization [facility] Address [address] [facility] 7t [place] [address] Care Team Providers Care Sole Rounder Name Role Phone Elise Stanford Primary Care Provider [phone] Katrin Santoyo MD Primary Care Pro vider Edison Vieira MD Unavailable [phone] Joe Devi MD Unavailable [phone] Reason for Visit * Reason Onset Date Comments Referral 11/24/2022 Podiatry Encounter Details Date Type Department Care Team (Late st Contact Info) Description 11/24/[address] [facility] MEDICINE [address] [place] [address] Elise Stanford FNP [address] [place] [address] Dept [place] [address] Referral (Podiatry/) Social History Tobacco Use Types [...] Anne Ocasio - 11/29/2022 9:46 AM EDT Academic Program Specialist re-faxed referral to Dr. Smith's office. Academic Program Specialist called Dr. Smith's office and confirmed that referral was received. Academic Program Specialist attempted to call patient twice to infirm that he may call to schedule his appt but did not answer and voicemail could not be left due to pt not having voicemail setup. Dr. Smith [address] [place] [address] FAX [phone] * Telephone Encounter - Elizabeth Melo - 11/24/2022 9:51 AM EDT Tc from patient requesting status on podiatry referral. Academic Program Specialist provided address and phone number and patient [...] [facility] MEDICINE [address] [place] [address] documented as of this encounter Visit Diagnoses Not on filedocumented in this encounter Additional Health Concerns Assessment Noted Time PHQ-9 Depression Total Score: 24 023 2:05 PM EDT documented as of this encounter Care Teams Sole Rounder Relationship Specialty Start Date End Date Elise Stanford FNP PCP - General Family Medicine 11/24/22 12/12/22 Katrin Santoyo MD [address] [place] [address] PCP - General Internal Medicine 12/13/22 Edison Vieira MD [address] [place] [address] Pulmonary Disease 04/07/24 Joe Devi MD [address] 3rd [place] [address] Gastroenterology 04/07/24 Carito Roche DNP [address], [address] [place] [address] Nephrology 04/07/24 [employer] 04/11/24 documented as of this encounter
--- OUTSIDE RECORDS SUMMARY | 2024-06-21 12:36 | XMS_ITS | Encounter Summary ---
Author Organization [facility] Address [address] [place] [address] Care Team Providers Care Wind Turbine Erector Name Role Phone Deep Pruitt JOHN Primary Care Provider Encounter Details Date Type Department Care Team (Late st Contact Info) Description 02/12/2016 Scanned Document [facility] [address] [place] [address] Francisco Veloz PA [address] [place] [phone] Social History Tobacco Use Types Packs/Day [...] documented as of this encounter Care Teams Wind Turbine Erector Relationship Specialty Start Date End Date Deep Pruitt APRN PCP - General 05/22/19 documented as of this encounter
--- OUTSIDE RECORDS SUMMARY | 2024-06-21 12:36 | XMS_ITS | Encounter Summary ---
Author Organization [facility] [facility] Address [address] [facility] 7t [place] [address] Care Team Providers Care Coal Shoveler Name Role Phone Elise Stanford Primary Care Provider [phone] Katrin Santoyo MD Primary Care Pro vider Edison Vieira MD Unavailable [phone] Joe Devi MD Unavailable [phone] Encounter Details Date Type Department Care Team (Latest Contact Info) Description 09/04/2018 Abstract [facility] CONVERSIONS Dental, Provider, DDS Social History [...] 11:00 AM EST Office Visit [facility] MEDICINE [address] [place] [address] documented as of this encounter Visit Diagnoses Not on filedocumented in this encounter Care Teams Coal Shoveler Relationship Specialty Start Date End Date Elise Stanford FNP PCP - General Family Medicine 11/24/22 12/12/22 Katrin Santoyo MD [address] [place] [address] PCP - General Internal Medicine 12/13/22 Edison Vieira MD [address] [place] [address] Pulmonary Disease 04/07/24 Joe Devi MD [address] 3rd [place] [address] Gastroenterology 04/07/24 Carito Roche DNP [address], [address] [place] [address] Nephrology 04/07/24 [employer] 04/11/24 documented as of this encounter
--- OUTSIDE RECORDS SUMMARY | 2024-06-21 12:36 | XMS_ITS | Encounter Summary ---
Author Organization [facility] Address [address] [place] [address] Care Team Providers Care Factory Worker Name Role Phone DublinDeep medina Niko LOPEZ Primary Care Provider Encounter Details Date Type Department Care Team (Late st Contact Info) Description 02/19/2020 Scanned Document [facility] [address] [place], [place] [phone] Arben Fountain, [employer] [address] [place] [address] Social History Tobacco Use Types [...] Answer Date Recorded PHQ-2 Score 2 10/02/2019 [facility] [place] of Occupat ional Health - Occupational Stress [...] documented as of this encounter Care Teams Factory Worker Relationship Specialty Start Date End Date Deep Pruitt APRN PCP - General 05/22/19 documented as of this encounter
--- OUTSIDE RECORDS SUMMARY | 2024-06-21 12:36 | XMS_ITS | Encounter Summary ---
Author Organization [facility] [employer] [facility] and [facility] Address [address] [place] [address] Care Team Providers Care Director Metabolism Name Role Phone Deep Pruitt APRN Primary Care Provider Reason for Visit * Reason Onset Date Comments Medication Refill 10/12/2021 Encounter Details Date Type Department Care Team (Late st Contact Info) Description 10/12/2021 Refill [facility] at [address] [place] [address] Anahi Rossi, JOHN [address] [place] [address] Medication Refill Social History Tobacco [...] Date Recorded PHQ-2 Total Score 0 10/12/2021 [facility] of Occupat ional [facility] [...] as of this encounter Care Teams Director Metabolism Relationship Specialty Start Date End Date Deep Pruitt APRN PCP - General 05/22/19 documented as of this encounter
--- OUTSIDE RECORDS SUMMARY | 2024-06-21 12:36 | XMS_ITS | Encounter Summary ---
Author Organization [email or web address] Address 75 [facility] 7 [place] [address] Care Team Providers Care Gear Tester Name Role Phone Katrin Santoyo MD Primary Care Pro vider Edison Vieira MD Unavailable [phone] Joe Devi MD Unavailable [phone] Encounter Details Date Type Department Care Team (Late st Contact Info) Description 06/21/2023 Abstract [facility] MEDICINE [address] [place], [place] [phone] Katrin Santoyo MD [address] [place] [address] Social History Tobacco Use Types Packs/Day Years [...] 11:00 AM EST Office Visit [facility] MEDICINE [address] [place] [address] documented as of this encounter Goals Goal [...] documented as of this encounter Care Teams Gear Tester Relationship Specialty Start Date End Date Katrin Santoyo MD [address] [place] [address] PCP - General Internal Medicine 12/13/22 Edison Vieira MD [address] [place] [address] Pulmonary Disease 04/07/24 Joe Devi MD [address] [facility] 3rd [place] [address] Gastroenterology 04/07/24 Carito Roche DNP [address] [facility], [address] [place] [address] Nephrology 04/07/24 [employer] 04/11/24 documented as of this encounter
--- OUTSIDE RECORDS SUMMARY | 2024-06-21 12:36 | XMS_ITS | Encounter Summary ---
Author Organization [facility] Address [address] [place] [address] Care Team Providers Care Movie Machine Operator Name Role Phone Deep Pruitt JOHN Primary Care Provider Encounter Details Date Type Department Care Team (Late st Contact Info) Description 04/05/2017 Scanned Document [facility] [address] [place], [place] [phone] Francisco Veloz PA [address] [place] [phone] Social History Tobacco Use Types Packs/Day [...] documented as of this encounter Care Teams Movie Machine Operator Relationship Specialty Start Date End Date Deep Pruitt APRN PCP - General 05/22/19 documented as of this encounter
--- OUTSIDE RECORDS SUMMARY | 2024-06-21 12:36 | XMS_ITS | Encounter Summary ---
Author Organization [employer] Address [address] [facility] 7t [place] [address] Care Team Providers Care Junior Staff Accountant Name Role Phone Katrin Santoyo MD Primary Care Pro vider Edison Vieira MD Unavailable [phone] Joe Devi MD Unavailable [phone] Reason for Visit * Reason Onset Date Comments Referral 04/05/2023 Encounter Details Date Type Department Care Team (Late st Contact Info) Description 04/05/2023 Telephone [facility] MEDICINE [address] [place], [place] [phone] Katrin Santoyo MD [address] [place], [place] [phone] Referral Social History Tobacco Use Types Packs/Day [...] Bhardwaj - 04/06/2023 10:27 AM EST Called [facility] Gastro for an update and they stated [...] Gastro made on 04/04/[address] [facility], states that they called facility and facility informs that their missing a summary form. Please contact pt at [phone] Japanese Speaker documented in this encounter Plan of Treatment Upcoming Encounters Date Type Department Care Team (Late st Contact Info) Description 07/02/2024 11:00 AM EST Office Visit [facility] MEDICINE [address] [place] [address] documented as of this encounter Goals Goal [...] documented as of this encounter Care Teams Junior Staff Accountant Relationship Specialty Start Date End Date Katrin Santoyo MD [address] [place] [address] PCP - General Internal Medicine 12/13/22 Edison Vieira MD [address] [place] [address] Pulmonary Disease 04/07/24 Joe Devi MD 11 [facility] 3rd [place] [address] Gastroenterology 04/07/24 Carito Roche DNP [address] [facility], [address] [place] [address] Nephrology 04/07/24 [employer] 04/11/24 documented as of this encounter
--- OUTSIDE RECORDS SUMMARY | 2024-06-21 12:36 | XMS_ITS | Encounter Summary ---
Author Organization [employer] Address 75 [facility] 7t [place] [address] Care Team Providers Care Sales Clerk Food Name Role Phone Katrin Santoyo MD Primary Care Pro vider Edison Vieira MD Unavailable [phone] Joe Devi MD Unavailable [phone] Reason for Visit * Reason Onset Date Comments FYI 05/22/2024 Encounter Details Date Type Department Care Team (Late st Contact Info) Description 05/22/2024 Telephone [facility] MEDICINE [address] [place], [place] [phone] Katrin Santoyo MD [address] [place], [place] [phone] Social History Tobacco Use Types Packs/Day Years [...] PM EST TC placed to Myrtle at [facility] who confirmed that while pt was [...] - 05/22/2024 2:08 PM EST Tc from [employer] [facility] [email or web address] calling about a pt taking Physical Therapy at home. Calling to report that pt BP was Elevated (144/110) and that pt has not taken his meds prior to BP reading. documented in this encounter Plan of Treatment Upcoming Encounters Date Type Department Care Team (Late st Contact Info) Description 07/02/2024 11:00 AM EST Office Visit [facility] MEDICINE [address] [place] [address] documented as of this encounter Goals Goal [...] as of this encounter Care Teams Sales Clerk Food Relationship Specialty Start Date End Date Katrin Santoyo MD [address] [place] [address] PCP - General Internal Medicine 12/13/22 Edison Vieira MD 5 [place] [address] Pulmonary Disease 04/07/24 Joe Devi MD [address] [place] [address] 3rd [place] [address] Gastroenterology 04/07/24 Carito Roche DNP [address] [facility], [address] [place] [address] Nephrology 04/07/24 [employer] 04/11/24 documented as of this encounter
--- OUTSIDE RECORDS SUMMARY | 2024-06-21 12:36 | XMS_ITS | Encounter Summary ---
Author Organization [facility] Address [address] [place] [address] Care Team Providers Care Joist Setter Name Role Phone Deep Pruitt JOHN Primary Care Provider Encounter Details Date Type Department Care Team (Late st Contact Info) Description 02/20/2017 Scanned Document [facility] [address] [place] [address] Francisco Veloz PA [address] [place] [phone] Social History Tobacco Use Types Packs/Day [...] documented as of this encounter Care Teams Joist Setter Relationship Specialty Start Date End Date Deep Pruitt APRN PCP - General 05/22/19 documented as of this encounter
--- OUTSIDE RECORDS SUMMARY | 2024-06-21 12:36 | XMS_ITS | Encounter Summary ---
Author Organization [employer] Address 75 [facility] 7t [place] [address] Care Team Providers Care Television Cable Installer Name Role Phone Katrin Santoyo MD Primary Care Pro vider Edison Vieira MD Unavailable [phone] Joe Devi MD Unavailable [phone] Reason for Visit * Reason Comments Med Refill Encounter Details Date Type Department Care Team (Late st Contact Info) Description 01/02/2023 Refill [facility] MEDICINE [address] [place] [address] Elise Stanford FNP [address] [place] [address] Dept [place] [address] Hemorrhoids, unspecified hemorrhoid type Social History Tobacco [...] Description 07/02/2024 11:00 AM EST Office Visit [facility] MEDICINE [address] [place] [address] documented as of this encounter Goals Goal [...] as of this encounter Care Teams Television Cable Installer Relationship Specialty Start Date End Date Katrin Santoyo MD [address] [place] [address] PCP - General Internal Medicine 12/13/22 Edison Vieira MD 5 [place] [address] Pulmonary Disease 04/07/24 Joe Devi MD 11 [facility] 3rd [place] [address] Gastroenterology 04/07/24 Carito Roche DNP 10 [facility], [address] [place] [address] Nephrology 04/07/24 [employer] 04/11/24 documented as of this encounter
--- OUTSIDE RECORDS SUMMARY | 2024-06-21 12:36 | XMS_ITS | Encounter Summary ---
Author Organization [employer] Address [address] [facility] 7t [place] [address] Care Team Providers Care Tip Stretcher Name Role Phone Katrin Santoyo MD Primary Care Pro vider Edison Vieira MD Unavailable [phone] Joe Devi MD Unavailable Reason for Visit * Reason Comments Med Refill Encounter Details Date Type Department Care Team ([facility] st Contact Info) Description 06/21/2024 Refill [facility] [address] [place] [address] Katrin Santoyo MD [address] [place] [address] Moderate persistent asthma without complication Social History Tobacco Use Types Packs/Day Years [...] your housing situation today? I have madelyn ainsley 02/21/[address] you li [...] Description 07/02/2024 11:00 AM EST Office Visit [facility] MEDICINE [address] [place] [address] documented as of this encounter Goals Goal Patient Goal Type Associated Problems Recent Progress Patient-Stated? Author Blood Pressure < 140/90 Blood Pressure 158/90(2023 10:23 AM EST) No Piers-Gambl e, Eve, PharmD Hemoglobin A1c < 7 Result Component 12.5(03/27/20 3:40 PM EST) No Piers-Gambl e, Eve, PharmD documented as of this encounter Visit Diagnoses Diagnosis Moderate persistent asthma without complication documented in this encounter Additional Health Concerns Assessment Noted Time PHQ-9 Depression Total Score: 4 10/31/19 10:32 AM EDT documented as of this encounter Care Teams Tip Stretcher Relationship Specialty Start Date End Date Katrin Santoyo MD [address] [place] [address] PCP - General Internal Medicine 12/13/22 Edison Vieira MD [address] [place] [address] Pulmonary Disease 04/07/24 Joe Devi MD [address] 3rd [place] [address] Gastroenterology 04/07/24 Carito Roche DNP [address], [address] [place] [address] Nephrology 04/07/24 [employer] 04/11/24 documented as of this encounter
--- OUTSIDE RECORDS SUMMARY | 2024-06-21 12:36 | XMS_ITS | Encounter Summary ---
Author Organization [facility] Address [address] [place] [address] Care Team Providers Care Computer Installation Engineer Name Role Phone Deep Pruitt APRN Primary Care Provider Reason for Visit * Reason Comments Medication Refill Encounter Details Date Type Department Care Team ([facility] st Contact Info) Description 01/29/2021 Refill [facility] [address] [place], [place] [phone] Deep Pruitt APRN [address] [place] [address] Medication Refill Social History Tobacco [...] Date Recorded PHQ-2 Total Score 6 01/21/2021 [facility] of Occupat ional Health - [...] as of this encounter Care Teams Computer Installation Engineer Relationship Specialty Start Date End Date Deep Pruitt APRN PCP - General 05/22/19 documented as of this encounter
--- OUTSIDE RECORDS SUMMARY | 2024-06-21 12:36 | XMS_ITS | Clinical Summary ---
Author Organization [employer] Address [address] [place] [address] Care Team Providers Care Jewel Flat Surfacer Name Role Phone Katrin Santoyo MD Primary Care Pro vider Edison Vieira MD Unavailable [phone] Joe Devi MD Unavailable [phone] Allergies Active Allergy Reactions Criticality Noted [...] Continuous Blood Gluc Sensor [place]Dexcom G7 Sensor[place] [facility] [place] Active DULoxetine (Cymbalta) 60 MG [...] EVENING 3 Active Blood Glucose Monitoring Suppl (Kopo KopoStyle [place] Lite) w/Device kitIndications:T ype 2 diabetes mellitus with diabetic nephropathy, with long-term current use of insulin ([facility]) Use to test blood sugar bid dx [...] 4 Active ergocalciferol (Vitamin D-2) 1.25 MG (80791 UT) capsule Take 1 capsule by mouth. Every Monday and 4 Active lidocaine (Lidoderm) 5 % patch Apply 1 patch topically Once per day. 12 hours on and 12 hours off 4 Active SSD 1 % cream Apply 1 Application. topically Once per day. 4 Active FreeStyle lancetsIndicatio ns:Type 2 diabetes mellitus with diabetic nephropathy, with long-term current use of insulin (CMS/[facility]) 1 each by Other route before breakfast, [...] PRN Indication: chronic radicular lumbar pain Last [employer] ADMINISTRATOR Agreement: 04/02/24 Chronic respiratory failure with hypoxia 024 On home oxygen therapy 02/02/2024 Assessment & Plan (04/07/2024 2:01 PM EST): - Continues on 2L oxygen - [place] [facility] [place]. Vieira Chest pressure 11/14/2023 [...] he develops redness, discharge or abscess on ome dyana. Advised against pocking on the lesions. Secondary dental caries 10/23/2023 Fractured dental mu-ism without loss of mat erial 10/23/2023 Alkaline phosphatase elevation 07/27/2023 Diabetes mellitus, labile 06/29/2023 Adrenal adenoma, right 05/18/2023 Type 2 diabetes mellitus wit h stage 3 chronic kidney disease, with long-term current use of insulin 01/23/2023 Assessment & Plan (06/22/2023 12:26 AM EST): -A1C 11.2 -Check blood sugar 1-2 hours after every meal. -Continue use of glucose gel PRN. -Follow up with [facility] 2023. Chronic radicular lumbar pain 01/23/2023 [...] of multiple topical analgesics after discussion with [facility] Pharmacist - meds sent to [...] 2022, f/u appt 01/2023 Dental: Refer pt [facility] on 12/13/22 Moderate persistent asthma 11/07/2022 Overview (11/07/2022): -The Pt saw Pulmonology in [place] 1472605/21/2021 -stable with the use of Advair and [...] Will focus on improving diabetic control Discuss clinical informatics educator referral at next visit F/u 1 [...] (04/07/2024 2:05 PM EST): - Following with [facility] - CASSIDY Roche - Plan [...] S on 1710 cm. - Following with [facility] [place] - Dr. Vieira - Encouraged to follow up with specialist regarding DME order and new sleep study PRN Chronic post-traumatic stress disorder (PTSD) Need for home health care 01/01/2019 Overview (11/07/2022): Pt is still in the process of establishing a Visiting Nurse for home care to help manage his multiple medications Hyperlipidemia associated wi th type 2 diabetes mellitus ([facility]) 12/10/2018 Overview (11/07/2022): - LDL 90 01/25/2021 [...] told him that it is not a usp med. He will fu w PCP next [...] told him that it is not a usp med. He will fu w PCP next week. Use heat to affected area Diabetes mellitus with diabetic nephropathy 12/09/2022 12/13/2022 History of colonoscopy 12/09/202201/23 Overview (12/09/2022): information and pathology of colonospcy in [facility] 09-09-2020 note Hyperlipidemia due to type 2 diabetes mellitus ([facility]) 12/09/2022 01/23/2023 Abnormal gait 12/09/2022 01/23/2023 Overview [...] Encounters Date Type Department Care Team Description 06/21/2024 Refill [facility] [address] [place] [address] Katrin Santoyo MD Moderate persistent asthma without complication 06/11/2024 Telephone [facility] MEDICINE [address] [place] [phone] Emili Cordero RN 06/10/2024 Telephone [facility] MEDICINE [address] [place] [address] Shirin Albarran MD No Show 06/06/2024 Telephone [facility] MEDICINE [address] [place] [address] Katrin Santoyo MD FYI 06/06/2024 Telephone [facility] MEDICINE [address] [place] [address] Katrin Santoyo MD Nurse Triage 06/05/2024 Telephone [facility] [address] [place] [address] Gabriela Rea, CASIE Error (VOID this visit) 05/30/2024 Telephone [facility] MEDICINE [address] [place] [phone] Katrin Santoyo MD Nurse Triage 05/22/2024 Telephone [facility] MEDICINE [address] [place] [address] Katrin Santoyo MD FYI 05/17/2024 Refill [facility] MEDICINE [address] [place] [address] Moriah Herbert FNP Chronic radicular lumbar pain 05/17/2024 Refill [facility] MEDICINE [address] [place] [address] Shanna Henao MD Chronic radicular lumbar pain 05/12/2024 Refill [facility] WALK-IN CENTER [address] [place] [address] Katrin Santoyo MD 04/30/2024 Telephone [facility] MEDICINE [address] [place] [phone] Katrin Santoyo MD Nurse Triage 04/26/2024 Refill [facility] MEDICINE [address] [place] [address] Katrin Santoyo MD 04/18/2024 Refill [facility] [address] [place] [address] Katrin Santoyo MD 04/16/2024 Telephone [facility] MEDICINE [address] [place] [phone] Katrin Santoyo MD Request For Order(s) 04/15/2024 Telephone [facility] MEDICINE [address] [place] [phone] Tamiko Bray MA Appointment 04/12/2024 Telephone [facility] MEDICINE [address] [place] [phone] Tamiko Bray MA Durable Medical Equipment 04/10/2024 Telephone [facility] MEDICINE [address] [place] [phone] Katrin Santoyo MD Referral; Durable Medical Equipment 04/10/2024 Orders Only GENERIC EXTERNAL DATA DEPARTMENT Provider, Generic External Data 04/09/2024 Telephone [facility] MEDICINE [address] [place] [phone] Katrin Santoyo MD 04/08/2024 Orders Only [facility] [address] [place] [address] Phalen, Moriah, TOWER FOREMAN Multifocal pneumonia (Primary Dx) 04/07/2024 Refill [facility] [address] [place] [address] Phalen, Moriah, TOWER FOREMAN Lung infection 04/03/2024 10:15 AM EST Office Visit [address] [address] Phalen, Moriah, TOWER FOREMAN Multifocal pneumonia (Primary Dx); Acute kidney injury superimposed on CKD ([facility]/HCC) ([facility]); Obstructive sleep apnea; On home oxygen therapy; Chronic kidney disease (CKD) stage G3a/A3, moderately decreased glomerular filtration rate (GFR) between 45-59 mL/min/1.73 square meter and albuminuria creatinine ratio greater than 300 mg/g ([facility]); Primary hypertension 04/03/2024 Orders Only GENERIC EXTERNAL DATA DEPARTMENT Provider, Generic External Data 04/03/2024 Travel 04/03/[address] [address] Katrin Santoyo MD FYI 04/03/[address] [address] Sean Danielson MA Chart Prep 04/02/2024 11:00 AM EST Office Visit [address] [address] Phalen, Moriah, TOWER FOREMAN Chronic radicular lumbar pain (Primary Dx); Long-term current use of opiate analgesic 04/02/2024 Travel 04/02/[address] [address] Katrin Santoyo MD callback requested 03/27/2024 Orders Only GENERIC EXTERNAL DATA DEPARTMENT Provider, Generic External Data 03/25/[address] [address] Katrin Santoyo MD callback requested from Last 3 Months Immunizations Name Administration [...] Description 07/02/2024 11:00 AM EST Office Visit [facility] MEDICINE [address] [place] [phone] Health Maintenance Due Date Last Done Comments [...] 12.5(03/27/20 3:40 PM EST) Eve Merida PharmD Procedures Procedure Name Priority Date/Time Associated [...] RENAL BI Routine 03/25/2024 1:17 PM EST LIPID PANEL, STANDARD Routine 09/19/2023 1:43 PM EDT Type 2 diabetes mellitus with stage 3a chronic kidney disease, with long-term current use of insulin (CMS/HCC) HEPATITIS PANEL, GENERAL Routine 12/06/2022 10:21 AM EDT Health care maintenance HIV ANTIBODY/ANTIGEN ([place] DPH) Routine 12/06/2022 10:21 AM EDT PROPHYLAXIS - ADULT Routine 09/04/2018 1 2:00 AM EDT INTRAORAL - COMPLETE SERIES OF RADIOGRAPHIC IMAGES Routine 08/15/2018 12:00 AM EDT COMPREHENSIVE ORAL EVALUATION - NEW OR ESTABLISHED PATIENT Routine 08/15/2018 12:00 AM EDT from Last 3 Months or Most Recently Relevant to Health Maintenance Results * (ABNORMAL) Basic Metabolic Panel (04/10/2024 11:51 AM EST) Only the most recent of2 resultswithin the time period is included. Sodium 140 135 - 145 mmol/L [facility] Potassium 4.9 3.3 - 5.1 mmol/L [facility] Chloride 107 96 - 108 mmol/L [facility] Carbon Dioxide 28 22 - 29 mmol/L [facility] Anion Gap 10(L) 12 - 20 [facility] Urea Nitrogen (BUN) 35(H) 9 - 16 mg/dL [facility] Creatinine, Serum 3.01(H) 0.5 - 1.4 mg/dL [facility] Estimated Glomerular Filt Rate 22 [facility] Comment:Chronic Kidney Disea se: Estimated GFR < 60 mL/min/1.46n5Vvrtno Kidney Disease: Estimated GFR < 15 mL/min/1.73m2 Glucose 288(H) 60 - 115 mg/dL [facility] Calcium 9.2 8.4 - 10.2 mg/dL [facility] 04/10/2024 11:5 1 AM EST 04/10/2024 11:58 AM EST us Generic External Data Provider LAB BLOOD ORDERAB LES Final Result Performing Organization Address [facility] de Phone Number [facility] [address] [place] [phone] * Creatinine, Random Urine (04/03/2024 11:51 AM EST) Creatinine, Urine 80.68 mg/dL [facility] 04/03/2024 11:5 1 AM EST 04/03/2024 1:15 PM EST us Generic External Data Provider LAB URINE ORDERAB LES Final Result Performing Organization Address [facility] de Phone Number [facility] [address] [place] [phone] [phone] * XR Chest 2 Views (04/03/2024 11:24 AM EST) Anatomical Region Laterality Modality Chest Radiographic Cierra ging 04/03/2024 11:2 4 AM EST Narrative 04/04/2024 11:05 AM EST ?[facility] ?[address] ?[place] [address] ?XRay Report ? Signed ? Patient: Benton Cortes,Darrel ?MR#: [id number] ?? [id number] ? : 1970 ?Acct:[id number] ? Age/Sex: 53 / M ?ADM Date: //24 ? Loc: HO.HHCX ? Attending Dr: Moriah Herbert TOWER FOREMAN ? Ordering Physician: Moriah Herbert TOWER FOREMAN ?? Date of Service: 04/03/24 ?? Procedure(s): XR chest 2V ?? Accession Number(s): [id number] ? cc: Moriah Herbert TOWER FOREMAN ? EXAMINATION: ?? XR CHEST 2 VIEWS [...] DD/ 1124 ? TD/TT: 04/03/24 1136 ? Boat Tender: IAN ? Procedure Note Pato, Image - 04/04/[address] [address] XRay Report Signed Patient: Darrel HaganMR#: [id number] : 1970Acct:[id number] Age/Sex: 53 / MADM Date: 04/03/24 Loc: HO.HHCX Attending Dr: Moriah LEACH Ordering Physician: Moriah Herbert Date of Service: 04/03/24 Procedure(s): XR chest 2V Accession Number(s): [id number] cc: Moriah Herbert EXAMINATION: XR CHEST 2 [...] 04/04/24 1102 DD/ 1124 TD/TT: 04/03/24 1136 Boat Tender: IAN us Moriahtalisha Herbert TOWER FOREMAN IMG XR PROCEDURES Final Result * POCT [id number] Urine Drug Screen (04/02/2024 1:31 PM EST) Urine Urine specimen obtained by clean catch procedure / Unknown 04/02/2024 1:31 PM EST Narrative Gabriela Rea RN - 04/02/2024 1:31 PM EST .[employer] cup Lot#[id number] Exp. 12/25/25 Internal Pass Control us Katrin López MD POINT OF CARE IRAM T ENTER/EDIT ORDERABLES Final Result * (ABNORMAL) Vitamin D 1,25 dihydroxy (03/27/2024 4:01 PM EST) Vit D (1,25-Dihydroxy) Total 17(A) 18 - 72 pg/mL [facility] VITAMIN D (1,25 OH) D3 17 pg/mL [facility] Vitamin D (1,25 OH) D2 <8 pg/mL [facility] Comment:Vitamin D3, 1,25(OH) 2 indicates both endogenousproduction and supplementation. Vitamin D2, 1,25(OH)2is an indicator of exogenous sources, such as diet orsupplementation. Interpretation and therapy are basedon measurement of Vitamin D,1,25(OH)2, Total.This test was developed and its analyticalperformance characteristics have been determinedby [employer] [place], [place].It has not been cleared or approved by the FDA. Thisassay has been validated pursuant to the CLIAregulations and is used for clinical purposes.THIS TEST WAS PERFORMED AT:[employer]/[facility] [place] [id number] HAILE MD,PHD 03/27/2024 4:01 PM EST 03/27/2024 4:01 PM EST Generic External Data Provider LAB BLOOD ORDERAB LES Final Result Performing Organization Address [facility] Co de Phone Number [facility] [address] [place] [phone] * Prothrombin Time-INR (03/27/2024 4:01 PM EST) Prothrombin Time 11.0 10.9 - 12.4 SEC [facility] INTERNATIONAL NORM RATIO 0.9 0.9 - 1.1 [facility] Comment:INTERNATIONAL NORMAL IZED RATIO (INR) [...] ORDERAB LES Final Result Performing Organization Address [facility] de Phone Number [facility] [address] [place] [phone] * (ABNORMAL) Immunofixation, Serum (03/27/2024 4:01 PM EST) IMMUNOGLOBULIN G 605 600 - 1640 mg/dL [facility] IMMUNOGLOBULIN A 279 47 - 310 mg/dL [facility] Immunoglobulin M 33(A) 50 - 300 mg/dL [facility] Comment:THIS TEST WAS PERFOR MED AT:[facility] [place] [phone] ALEXANDER MD Immunofixation Result SEE NOTE [facility] Comment:Faint IgG kappa mono clonal band present. 03/27/2024 4:01 PM EST 03/27/2024 4:01 PM EST us Generic External Data Provider LAB BLOOD ORDERAB LES Final Result Performing Organization Address [facility] Co de Phone Number [facility] [address] [place] [phone] * (ABNORMAL) Complement Component C3c (03/27/2024 4:01 PM EST) Complement C3 204(A) 82 - 185 mg/dL [facility] Comment:THIS TEST WAS PERFOR MED AT:[facility] [address] [id number] ALEXANDER MD 03/27/2024 4:01 PM EST 03/27/2024 4:01 PM EST Generic External Data Provider LAB BLOOD ORDERAB LES Final Result Performing Organization Address [facility] de Phone Number [facility] [address] [place] [phone] * (ABNORMAL) Complement Component C4c (03/27/2024 4:01 PM EST) Complement C4 56(A) 15 - 53 mg/dL [facility] Comment:THIS TEST WAS PERFOR MED AT:[facility] [address] [phone] ALEXANDER MD 03/27/2024 4:01 PM EST 03/27/2024 4:01 PM EST Generic External Data Provider LAB BLOOD ORDERAB LES Final Result Performing Organization Address [facility] de Phone Number [facility] [address] [place] [phone] * Phosphate (As Phosphorus) (03/27/2024 4:01 PM EST) Phosphorus 4.0 2.7 - 4.5 mg/dL [facility] 03/27/2024 4:01 PM EST 03/27/2024 4:01 PM EST us Generic External Data Provider LAB BLOOD ORDERAB LES Final Result Performing Organization Address [facility] Co de Phone Number [facility] [address] [place] [phone] * (ABNORMAL) PTH, Intact Without Calcium (03/27/2024 4:01 PM EST) Parathyroid Hormone, Intact 498.5(H) 8.7 - 77.1 pg/mL [facility] 03/27/2024 4:01 PM EST 03/27/2024 4:01 PM EST Generic External Data Provider LAB BLOOD ORDERAB LES Final Result Performing Organization Address [facility] de Phone Number [facility] [address] [place] [phone] * (ABNORMAL) Comprehensive Metabolic Panel (03/27/2024 4:01 PM EST) Sodium 136 135 - 145 mmol/L [facility] Potassium 4.8 3.3 - 5.1 mmol/L [facility] Chloride 102 96 - 108 mmol/L [facility] Carbon Dioxide 24 22 - 29 mmol/L [facility] Anion Gap 15 12 - 20 [facility] Urea Nitrogen (BUN) 59(H) 9 - 16 mg/dL [facility] Creatinine, Serum 3.95(H) 0.5 - 1.4 mg/dL [facility] Estimated Glomerular Filt Rate 16 [facility] Comment:Chronic Kidney Disea se: Estimated GFR < 60 mL/min/1.36o4Uxapyi Kidney Disease: Estimated GFR < 15 mL/min/1.73m2 Glucose 502(HH) 60 - 115 mg/dL [facility] Comment:Critical value for t est(s): GLU Results called to and readback by: JUANITO Person calling: BRENDON Date: 03/27/24Time: 1745 Calcium 9.2 8.4 - 10.2 mg/dL [facility] Bilirubin, Total 0.1 0.0 - 1.0 mg/dL [facility] Aspartate Amino Transferase 24 5 - 37 U/L [facility] Alanine Aminotransferase 24 0 - 40 U/L [facility] Total Protein 6.2(L) 6.5 - 8.0 g/dL [facility] Albumin Level 2.6(L) 3.5 - 5.0 g/dL [facility] Alkaline Phosphatase 140(H) 39 - 117 U/L [facility] 03/27/2024 4:01 PM EST 03/27/2024 4:01 PM EST us Generic External Data Provider LAB BLOOD ORDERAB LES Final Result Performing Organization Address [facility] Co de Phone Number [facility] [address] [place] [phone] * Immunofixation (CHRISTIANE), Urine (03/27/2024 3:57 PM EST) CHRISTIANE Interpretation [facility] Comment:No monoclonal protei ns detected.The supplier of the testing reagents for this assayhas changed. Detection of small monoclonal proteins mayvary by test system.THIS TEST WAS PERFORMED AT:[facility] [place] [id number] ALEXANDER MD 03/27/2024 3:57 PM EST 03/27/2024 4:37 PM EST us Generic External Data Provider LAB URINE ORDERAB LES Final Result Performing Organization Address [facility] Co de Phone Number [facility] [address] [place] [phone] * (ABNORMAL) Albumin, Random Urine W/Creatinine (03/27/2024 3:57 PM EST) Creatinine, Urine 65.94 mg/dL [facility] Microalbumin Urine >2,000.0 mg/L [facility] Microalbum Creatinine Ratio Ur 3,033.0(H ) <30 ug/mg cr [facility] Comment:Albumin/Creatinine R atio Reference Ranges: Normal: < 30 ug/mg creatinine Microalbuminuria: 30 - 300 ug/mg creatinineClinical Albuminuria: > 300 ug/mg creatinine 03/27/2024 3:57 PM EST 03/27/2024 4:37 PM EST us Generic External Data Provider LAB URINE ORDERAB LES Final Result Performing Organization Address City/State/[facility] Co de Phone Number [facility] [address] [place] [phone] * (ABNORMAL) CBC auto differential (03/27/2024 3:40 PM EST) White Blood Count 12.3(H) 4.8 - 10.8 X10*3/uL [facility] Red Blood Count 4.57(L) 4.60 - 5.80 X10*6/uL [facility] Hemoglobin 12.7(L) 14.0 - 18.0 g/dl [facility] Hematocrit 40.5(L) 42.0 - 52.0 % [facility] Mean Corpuscular Volume 88.6 80.0 - 98.0 fL [facility] Mean Corpuscular Hemoglobin 27.8 27.0 - 33.0 pg [facility] Mean Corpuscular HGB Conc 31.4 31.0 - 36.0 g/dl [facility] Red Cell Distribution Width 14.4 11.0 - 16.0 % [facility] Platelet Count 402(H) 160 - 400 X10*3/uL [facility] Mean Platelet Volume 12.1 9.4 - 12.4 fL [facility] Neutrophils Percent Auto 68.8 45 - 73 % [facility] Imm Gran Pct Auto 1.1(H) 0.0 - 0.4 % [facility] Lymphocytes Percent Auto 18.6(L) 20 - 40 % [facility] Monocytes Percent Auto 8.6 2 - 11 % [facility] Eosinophils Percent Auto 2.4 0 - 4 % [facility] Basophils Percent Auto 0.5 0 - 2 % [facility] NRBC Pct Auto 0.0 0.0 - 0.2 /100WBC [facility] Neutrophils Absolute Auto 8.4(H) 2.0 - 8.3 x10*3/uL [facility] Imm Gran Abs Auto 0.14(H) 0.00 - 0.03 X10*3/uL [facility] Lymphocytes Absolute Auto 2.3 1.2 - 4.9 X10*3/uL [facility] Monocytes Absolute Auto 1.1 0.1 - 1.2 X10*3/uL [facility] Eosinophils Absolute Auto 0.3 0.0 - 0.4 X10*3/uL [facility] Basophils Absolute Auto 0.1 0.0 - 0.2 X10*3/uL [facility] NRBC Abs Auto 0.000 0.0 - 0.012 X10*3/uL [facility] 03/27/2024 3:40 PM EST 03/27/2024 4:52 PM EST us Generic External Data Provider LAB BLOOD ORDERAB LES Final Result [facility] [address] [place] [phone] * (ABNORMAL) Hemoglobin A1c (03/27/2024 3:40 PM EST) Hemoglobin A1c 12.5(H) <6.0 % [facility] Comment:Hemoglobin A1C Refer ence Range Adults: 4.8 - 6.0 % Non diabetic: < 6.0 % Goal: < 7.0 %Additional Action Suggested: > 8.0 %Note: Hemoglobin A1c results are invalid for patients with abnormal amounts of HbF. Blood transfusions may impact the HbA1c concentration in the patient sample. Estimated Average Glucose 312 mg/dL [facility] Comment:eAG = Estimated ave rage glucose which is %A1C expressed asaverage glucose, using the formula of the Z5C-NrfjsrhAtcnjzi Glucose study (ADAG), Diabetes Care, Vol.31,#8,Aug. 2007 03/27/2024 3:40 PM EST 03/27/2024 6:33 PM EST us Generic External Data Provider LAB BLOOD ORDERAB LES Final Result [facility] [address] [place] [phone] * US RENAL BI (03/25/2024 1:17 PM EST) Anatomical Region Laterality Modality Abdomen Ultrasound 03/25/2024 1:17 PM EST Narrative 03/25/2024 5:19 PM EST ? [facility] ?[address] ?[place] [address] ? Ultrasound Report ? Signed ? Patient: Darrel Hagan ?MR#: [id number] ?? [id number] ? : 1970 ?Acct:[id number] ? Age/Sex: 53 / M ?ADM Date: 03/20/24 ? Loc: HO.IMC ?470-1 ? Attending Dr: Renetta Chawla MD ? Ordering Physician: Carito Roche DNP, FNP-BC ?? Date of Service: 03/25/24 ?? Procedure(s): US renal BI ?? Accession Number(s): [id number] ? cc: Carito Roche DNP, FNP-BC; Katrin [...] DD/ 1317 ? TD/TT: 03/25/24 1331 ? Boat Tender: IAN ? Procedure Note Donotvadiminterpreter, Image - 03/25/2024 [place] [address] Ultrasound Report Signed Patient: Darrel Hagan#: [id number] : 1970Acct:[id number] Age/Sex: 53 / MADM Date: 03/20/24 Loc: [facility] [address]: Renetta Chawla MD Ordering Physician: Carito Roche DNP, FNP-BC Date of Service: 03/25/24 Procedure(s): US renal BI Accession Number(s): [id number] cc: Carito Roche DNP, FNP-BC; Katrin Santoyo [...] Blake Magana MD 03/25/2024 05:16 PM EST RP Dictated By: Blake Magana MD Signed By: <Electronically signed by Blake Magana MD in OV> 03/25/24 1716 DD/ 1317 TD/TT: 03/25/24 1331 Boat Tender: [facility] External Provider IMG US PROCEDURES Final Result * (ABNORMAL) Lipid Panel, Standard (09/19/2023 1:43 PM EDT) Triglycerides 316(H) <150 mg/dL [facility] Comment:Desirable Triglyceri de: less than 150 mg/dLBorderline High Triglyceride 150-199 mg/dLHigh Triglyceride: 200-499 mg/dLVery High Triglyceride: greater than or equal to 5OO mg/dL Cholesterol 164 <200 mg/dL [facility] Comment:Desirable Cholestero l: less than 200 mg/dLBorderline High Cholesterol: 200-239 mg/dLHigh Cholesterol: greater than 239 mg/dL LDL Cholesterol Calculated 60 <100 mg/dL [facility] Comment:Desirable LDL: less than 100 mg/dLNear Optimal/Above Optimal LDL: 110- 129 mg/dLBorderline High LDL: 130-159 mg/dLHigh LDL: 160-189 mg/dLVery High LDL: greater than or equal to 190 mg/dL HDL Cholesterol 41 >40 mg/dL [facility] Comment:Desirable HDL: great er than 40 mg/dL Note: This HDL assay may give artificially low results in patients with liver disease. Blood Venous blood specimen / Unknown 09/19/2023 1:43 PM EDT 09/19/2023 3:53 PM EDT Katrin López MD LAB BLOOD ORDERAB LES Final Result [facility] [address] [place] [address] [phone] * HIV Ab/Ag (LOU JEFFRIES) (12/06/2022 10:21 AM EDT) HIV AB/AG Nonreactive Nonreactive [facility] Comment:HIV-1 p24 Ag and/or HIV-1/HIV-2 Ab not detected.A test result that is nonreactive does not exclude thepossibility of exposure to or infection with HIV-1 and/orHIV-2. Nonreactive results in this assay for individualswith prior exposure to HIV-1 and/or HIV-2 may be due toantigen and antibody levels that are below the limit ofdetection of this assay.The Lamar Batching Operator HIV Ag/Ab Combo assay result andsupplemental assay results should be interpreted inconjunction with the patient's clinical presentation,history and other laboratory results. If the results areinconsistent with clinical evidence, additional testing issuggested to confirm the result. 12/06/2022 10:2 1 AM EDT 12/06/2022 11:17 AM EDT Elise Stanford [facility] LAB BLOOD ORDERABLES Final Result Performing Organization Address [facility] Co de Phone Number [facility] [address] [place] [address] [phone] * Hepatitis Panel, General (12/06/2022 10:21 AM EDT) Hepatitis A IgM Nonreactive Nonreactive [facility] Comment:IgM antibodies to VILLANUEVA V not detected; does not exclude earlyacute or recovered HAV infection. ~Hepatitis B Surface Antibody REACTIVE Nonreactive [facility] Comment:REACTIVE: > 11.99 mI U/mL Hepatitis B Core Antibody Nonreactive Nonreactive [facility] Hepatitis C Antibody Nonreactive Nonreactive [facility] Comment:Antibodies to HCV no t detected; does not exclude early acuteHCV infection. Hepatitis B Surface Ag Negative Negative [facility] Blood 12/06/2022 10:2 1 AM EDT 12/06/2022 11:17 AM EDT Elise Stanford [employer] [employer] LAB BLOOD ORDERABLES Final Result [facility] [address] [place] [phone] [phone] from Last 3 Months or Most Recently Relevant to Health Maintenance Insurance [facility] C3 DENTAL-[facility] MEDICAID STAND ADULT Care Teams Jewel Flat Surfacer Relationship Specialty Start Date End Date Katrin Santoyo MD [address] [place] [address] PCP - General Internal Medicine 12/13/22 Edison Vieira MD [address] [place] [address] Pulmonary Disease 04/07/24 Joe Devi MD [address] [facility] 3rd [place] [address] Gastroenterology 04/07/24 Carito Roche DNP [address] [facility], [address] [place] [address] Nephrology 04/07/24 [place] 04/11/24
--- OUTSIDE RECORDS SUMMARY | 2024-06-21 12:36 | XMS_ITS | Encounter Summary ---
Author Organization [employer] Address [address] [facility] 7t [place] [address] Care Team Providers Care Matrix Supervisor Name Role Phone Elise Stanford LIVERY CAR DRIVER Primary Care Provider [phone] Katrin Santoyo MD Primary Care Pro vider Edison Vieira MD Unavailable [phone] Joe Devi MD Unavailable [phone] Encounter Details Date Type Department Care Team (Late st Contact Info) Description 12/06/2022 Telephone [facility] [address] [place] [address] Susan Manzano LPN Social History Tobacco Use [...] Critical result line call from Damaris with [facility]. Patient glucose reported as 411 today. Triage call to follow with patient. Please update PCP with critical result. documented in this encounter Plan of Treatment Upcoming Encounters Date Type Department Care Team (Late st Contact Info) Description 07/02/2024 11:00 AM EST Office Visit [facility] [address] [place] [address] documented as of this encounter Visit Diagnoses Not on filedocumented in this encounter Additional Health Concerns Assessment Noted Time PHQ-9 Depression Total Score: 023 2:05 PM EDT documented as of this encounter Care Teams Matrix Supervisor Relationship Specialty Start Date End Date Elise Stanford FNP PCP - General Family Medicine 11/24/22 12/12/22 Katrin Santoyo MD [address] [place] [address] PCP - General Internal Medicine 12/13/22 Edison Vieira MD [address] [place] [address] Pulmonary Disease 04/07/24 Joe Devi MD [address] [facility] 3rd [place] [address] Gastroenterology 04/07/24 Carito Roche DNP [address] [facility], [address] [place] [address] Nephrology 04/07/24 [facility] 04/11/24 documented as of this encounter
--- OUTSIDE RECORDS SUMMARY | 2024-06-21 12:36 | XMS_ITS | Encounter Summary ---
Author Organization [facility] Address [address] [place] [address] Care Team Providers Care Sales Operations Associate Name Role Phone Deep Pruitt APRN Primary Care Provider Reason for Visit * Reason Comments Other Encounter Details Date Type Department Care Team ([facility] Contact Info) Description 01/13/2021 Telephone [facility] [address] [place] [address] Deep Pruitt APRN [address] [place] [address] Other Social History Tobacco Use [...] Date Recorded PHQ-2 Total Score 6 01/12/2021 [facility] [...] a side effect fromthat medication. Patient utilizes [facility] [address] [place] [address] Patient contact [phone] documented in this encounter Plan of Treatment [...] as of this encounter Care Teams Sales Operations Associate Relationship Specialty Start Date End Date Deep Pruitt APRN PCP - General 05/22/19 documented as of this encounter
--- OUTSIDE RECORDS SUMMARY | 2024-06-21 12:36 | XMS_ITS | Encounter Summary ---
Author Organization [facility] Address [address] [place] [address] Care Team Providers Care Concrete Mason Name Role Phone Deep Pruitt JOHN Primary Care Provider Encounter Details Date Type Department Care Team (Late st Contact Info) Description 02/13/2018 Scanned Document [facility] [address] [place] [address] Francisco Veloz PA [address] [place] [phone] Social History Tobacco Use Types Packs/Day [...] as of this encounter Care Teams Concrete Mason Relationship Specialty Start Date End Date Deep Pruitt APRN PCP - General 05/22/19 documented as of this encounter
--- OUTSIDE RECORDS SUMMARY | 2024-06-21 12:36 | XMS_ITS | Clinical Summary ---
Author Organization [facility] Address [address] [place] [address] Phone Care Team Providers Care Tetryl Dissolver Operator Name Role Phone Physician, No Pcp Primary [...] EST - 04/08/2024 4:25 PM EST Emergency [facility] Emergency [address] [place] [address] Nils Silverman MD Cervical strain, acute, initial [...] Signed Date: 04/08/2024 15:28 ET Workstation ID: [id number] Transcribed By: Self Edit Transcribed Date: 04/08/2024 [...] Signed Date: 04/08/2024 15:28 ET Workstation ID: [id number] Transcribed By: Self Edit Transcribed Date: 04/08/2024 [...] Signed Date: 04/08/2024 15:24 ET Workstation ID: [id number] Transcribed By: Self Edit Transcribed Date: 04/08/2024 [...] Signed Date: 04/08/2024 15:24 ET Workstation ID: [id number] Transcribed By: Self Edit Transcribed Date: 04/08/2024 [...] Signed Date: 04/08/2024 15:26 ET Workstation ID: [id number] Transcribed By: Self Edit Transcribed Date: 04/08/2024 [...] Signed Date: 04/08/2024 15:26 ET Workstation ID: [id number] Transcribed By: Self Edit Transcribed Date: 04/08/2024 [...] Signed Date: 04/08/2024 15:26 ET Workstation ID: [id number] Transcribed By: Self Edit Transcribed Date: 04/08/2024 [...] Signed Date: 04/08/2024 15:26 ET Workstation ID: [id number] Transcribed By: Self Edit Transcribed Date: 04/08/2024 15:24 ET Result [facility] IMG XR PROCEDURES Final Resul t * Annual BMP Blood Test (11/07/2023) [facility] Annual BMP Blood Test Abstracted Result [facility] Provider HEALTH MAINTENANCE Final Result * Lipid panel (09/19/2023) [facility] Triglycerides 0 mg/dL Comment:No interpretation Cholesterol 0 mg/dL Comment:No interpretation HDL 0 mg/dL Comment:No interpretation LDL Cholesterol 0 mg/dL Comment:No interpretation Blood Venous blood specimen / Unknown Result [facility] Provider LAB BLOOD ORDERABLES Fauzia l Result * Urine Albumin Creatinine Ratio (05/19/2023) [facility] Urine Albumin Creatinine Ratio Abstracted Result [facility] Provider HEALTH MAINTENANCE Final Result * Hemoglobin A1c (05/17/2023) [facility] Hemoglobin A1C 0.0 % Comment:No interpretation Blood Venous blood specimen / Unknown Result [facility] Provider LAB BLOOD ORDERABLES Fauzia l Result * HIV Screening (12/06/2022) [facility] HIV Screening Abstracted Result [facility] Provider HEALTH MAINTENANCE Final Result * Hepatitis C Screening (12/06/2022) [facility] Hepatitis C Screening Abstracted Result [facility] Provider HEALTH MAINTENANCE Final Result from Last 3 Months or Most Recently Relevant to Health Maintenance Insurance [place] [id number] Care Teams Tetryl Dissolver Operator Relationship Specialty Start Date End Date Physician, No Pcp PCP - General 04/08/24
--- OUTSIDE RECORDS SUMMARY | 2024-06-21 12:36 | XMS_ITS | Encounter Summary ---
Author Organization [facility] Address [address] [place] [address] Care Team Providers Care Maintenance Manager Name Role Phone Deep Pruitt APRN Primary Care Provider Reason for Visit * Reason Comments Medication Refill Encounter Details Date Type Department Care Team ([facility] st Contact Info) Description 12/29/2020 Refill [facility] [address] [place] [address] Deep Pruitt APRN [address] [place] [phone] Medication Refill Social History Tobacco Use [...] Date Recorded PHQ-2 Total Score 0 11/18/2020 [facility] of Occupat [...]
--- OUTSIDE RECORDS SUMMARY | 2024-06-21 12:36 | XMS_ITS | Encounter Summary ---
Author Organization [facility] Address [address] [place] [address] Care Team Providers Care Visual C Developer Name Role Phone Deep Pruitt JOHN Primary Care Provider Encounter Details Date Type Department Care Team (Late st Contact Info) Description 01/01/2018 Scanned Document [facility] [address] [place], [place] [address] Francisco Veloz PA [address] [place] [phone] Social History Tobacco Use Types Packs/Day [...] documented as of this encounter Care Teams Visual C Developer Relationship Specialty Start Date End Date Deep Pruitt APRN PCP - General 05/22/19 documented as of this encounter
--- OUTSIDE RECORDS SUMMARY | 2024-06-21 12:36 | XMS_ITS | Encounter Summary ---
Author Organization [facility] Address [address] [place] [address] Care Team Providers Care Supervisor Phosphatic Fertilizer Name Role Phone Deep Pruitt JOHN Primary Care Provider Encounter Details Date Type Department Care Team (Late st Contact Info) Description 11/22/2017 Scanned Document [facility] [address] [place], [place] [phone] Francisco Veloz PA [address] [place] [address] Social History Tobacco Use Types [...] as of this encounter Care Teams Supervisor Phosphatic Fertilizer Relationship Specialty Start Date End Date Deep Pruitt APRN PCP - General 05/22/19 documented as of this encounter
--- OUTSIDE RECORDS SUMMARY | 2024-06-21 12:37 | XMS_ITS | Encounter Summary ---
Author Organization [facility] [employer] [facility] Address [address] [place] [address] Care Team Providers Care Nurse Extern Name Role Phone Deep Pruitt APRN Primary Care Provider Reason for Visit * Reason Onset Date Comments Medication Refill 09/30/2021 Encounter Details Date Type Department Care Team (Late st Contact Info) Description 09/30/2021 Refill [facility] [address] [place] [address] Kaity Harris, FRAME ALIGNER [address] [place] [phone] Medication Refill Social History Tobacco Use Types [...] Recorded PHQ-2 Total Score 5 09/14/2021 [facility] - Occupational Stress Questionnaire Answer Date [...] as of this encounter Care Teams Nurse Extern Relationship Specialty Start Date End Date Deep Pruitt APRN PCP - General 05/22/19 documented as of this encounter
--- OUTSIDE RECORDS SUMMARY | 2024-06-21 12:37 | XMS_ITS | Encounter Summary ---
Author Organization [facility] Address [address] [place] [address] Care Team Providers Care Rehab Rn Name Role Phone [place] Niko LOPEZ Primary Care Provider Reason for Visit * Reason Onset Date Comments Medication Refill 09/22/2021 Encounter Details Date Type Department Care Team (Late st Contact Info) Description 09/22/2021 Refill [facility] Nutrition at [address] [address] Zena Hines PA [address] [place] [phone] Medication Refill Social History Tobacco Use [...] Date Recorded PHQ-2 Total Score 5 09/14/2021 [facility] of Occupat ional [...] is no longer seeing Zena Hines at [facility] for DM mangement. aNte, Katrin documented in this encounter Plan of [...] documented as of this encounter Care Teams Rehab Rn Relationship Specialty Start Date End Date Deep Pruitt APRN PCP - General 05/22/19 documented as of this encounter
--- OUTSIDE RECORDS SUMMARY | 2024-06-21 12:37 | XMS_ITS | Encounter Summary ---
Author Organization [facility] Address [address] [place] [address] Care Team Providers Care Propulsion Engineer Name Role Phone Deep Pruitt APRN Primary Care Provider Reason for Visit * Reason Comments Medication Problem Encounter Details Date Type Department Care Team ([facility] Contact Info) Description 10/11/2021 Telephone [facility] [address] [place] [address] Deep Pruitt APRN [address] [place] [address] Medication Problem Social History Tobacco [...] Date Recorded PHQ-2 Total Score 0 10/12/2021 [facility]at [facility] - [...] 08 of October Spoke to sissy via percussion tuner #[id number] (patti) patient states she spoke to the [...] if patient medication can be [facility] [place] [facility] [address] . Best contact: [phone] documented in this encounter Plan of Treatment Not on file documented as of this encounter Visit Diagnoses Not on filedocumented in this encounter Additional Health Concerns Infection Onset Date Last Indicated Resolved Time COVID-19 09/29/2021 09/29/2021 10/19/2021 7:19 PM EDT Assessment Noted Time PHQ-9 Depression Total Score: 0 10/08/19 22 1:27 PM EDT documented as of this encounter Care Teams Propulsion Engineer Relationship Specialty Start Date End Date Deep Pruitt APRN PCP - General 05/22/19 documented as of this encounter
--- OUTSIDE RECORDS SUMMARY | 2024-06-21 12:37 | XMS_ITS | Encounter Summary ---
Author Organization [facility] [employer] and [facility] Address [address] [place] [phone] Care Team Providers Care Placement Specialist Name Role Phone Deep Pruitt APRN Primary Care Provider Reason for Visit * Reason Onset Date Comments Medication Refill 09/20/2021 Encounter Details Date Type Department Care Team (Late st Contact Info) Description 09/20/2021 Refill [facility] [address] [facility] [address] [facility] 2nd [place] [address] Ricarda Du MD [address] [place] [phone] Medication Refill Social History Tobacco Use Types [...] Score 5 09/14/2021 [facility] Occupat ional Health [...] documented as of this encounter Care Teams Placement Specialist Relationship Specialty Start Date End Date Deep Pruitt APRN PCP - General 05/22/19 documented as of this encounter
--- OUTSIDE RECORDS SUMMARY | 2024-06-21 12:37 | XMS_ITS | Encounter Summary ---
Author Organization [facility] Address [address] [place] [address] Care Team Providers Care Staff Cytotechnologist Name Role Phone [place], Deep Niko LOPEZ Primary Care Provider [phone] Reason for Visit * Reason Onset Date Comments Medication Refill 10/12/2021 Encounter Details Date Type Department Care Team (Late st Contact Info) Description 10/12/2021 Refill [facility] [address] [place] [address] Cecile Oneal, DMD [address] [place] [address] Medication Refill Social History Tobacco [...] Date Recorded PHQ-2 Total Score 0 10/12/2021 [facility] of Occupat ional [...] documented as of this encounter Care Teams Staff Cytotechnologist Relationship Specialty Start Date End Date Deep Pruitt APRN PCP - General 05/22/19 documented as of this encounter
--- OUTSIDE RECORDS SUMMARY | 2024-06-21 12:37 | XMS_ITS | Encounter Summary ---
Author Organization [facility] Address [address] [place] [address] Care Team Providers Care Java Project Manager Name Role Phone Deep Pruitt APRN Primary Care Provider Reason for Visit * Reason Comments Other Appointment Encounter Details Date Type Department Care Team ([facility] Contact Info) Description 10/07/2021 Telephone [facility] [address] [place] [address] Deep Pruitt APRN [address] [place] [address] Other; Appointment Social History Tobacco [...] Date Recorded PHQ-2 Total Score 0 10/07/2021 [facility] of Occupat ional Health - [...] after dropped call ,patient has virtual appt [phone] documented in this encounter Plan of Treatment Not on file documented as of this encounter Visit Diagnoses Not on filedocumented in this encounter Additional Health Concerns Infection Onset Date Last Indicated Resolved Time COVID-19 09/29/2021 09/29/2021 10/19/2021 7:19 PM EDT Assessment Noted Time PHQ-9 Depression Total Score: 0 10/08/19 22 1:27 PM EDT documented as of this encounter Care Teams Java Project Manager Relationship Specialty Start Date End Date Deep Pruitt APRN PCP - General 05/22/19 documented as of this encounter
--- OUTSIDE RECORDS SUMMARY | 2024-06-21 12:37 | XMS_ITS | Encounter Summary ---
Author Organization [facility] Address [address] [place] [address] Care Team Providers Care Orthotic Fitter Name Role Phone Deep Pruitt APRN Primary Care Provider [phone] Reason for Visit * Reason Comments Medication Refill Encounter Details Date Type Department Care Team ([facility] st Contact Info) Description 11/05/2020 Refill [facility] [address] [place] [address] Deep Pruitt APRN [address] [place] [phone] Medication Refill Social History Tobacco Use [...] Answer Date Recorded PHQ-2 Score 2 07/07/2020 [facility] of Occupat ional [facility] - Occupational Stress Questionnaire Answer [...] documented as of this encounter Care Teams Orthotic Fitter Relationship Specialty Start Date End Date Deep Pruitt APRN PCP - General 05/22/19 documented as of this encounter
--- OUTSIDE RECORDS SUMMARY | 2024-06-21 12:37 | XMS_ITS | Encounter Summary ---
Author Organization [facility] [facility] and [facility] Address [address] [place] [phone] Care Team Providers Care Box Toe Buffer Name Role Phone Deep Pruitt APRN Primary Care Provider Reason for Visit * Reason Onset Date Comments Medication Refill 09/30/2021 Encounter Details Date Type Department Care Team (Late st Contact Info) Description 09/30/2021 Refill [facility] [address] [facility] [address] [facility] 2nd [place] [address] Rubin Valderrama, [facility] [address] [place] [phone] Medication Refill Social History Tobacco Use Types [...] Date Recorded PHQ-2 Total Score 5 09/14/2021 [facility] of Occupat ional [facility] - Occupational Stress Questionnaire Answer Date [...] today, but unknown at home. Defer to [facility] pharmacy team for antihypertensive management. Current regimen [...] as of this encounter Care Teams Box Toe Buffer Relationship Specialty Start Date End Date Deep Pruitt APRN PCP - General 05/22/19 documented as of this encounter
--- OUTSIDE RECORDS SUMMARY | 2024-06-21 12:37 | XMS_ITS | Encounter Summary ---
Author Organization [facility] Address [address] [place] [address] Care Team Providers Care Paving Block Cutter Name Role Phone Deep Pruitt JOHN Primary Care Provider Reason for Visit * Reason Onset Date Comments Medication Refill 10/12/2021 Encounter Details Date Type Department Care Team (Late st Contact Info) Description 10/12/2021 Refill [facility] Nutrition at [address] [phone] Angie Mcghee MD [address] [place] [phone] Medication Refill Social History Tobacco Use Types [...] Date Recorded PHQ-2 Total Score 0 10/12/2021 [facility] [...] documented as of this encounter Care Teams Paving Block Cutter Relationship Specialty Start Date End Date Deep Pruitt APRN PCP - General 05/22/19 documented as of this encounter
--- OUTSIDE RECORDS SUMMARY | 2024-06-21 12:37 | XMS_ITS | Encounter Summary ---
Author Organization [facility] Address [address] [place] [address] Care Team Providers Care Cartridge Loader Name Role Phone Deep Pruitt APRN Primary Care Provider Encounter Details Date Type Department Care Team ([facility] st Contact Info) Description 11/14/2020 Scanned Document [facility] [address], [place] [id number] Deep Pruitt APRN [address] [place] [address] Social History Tobacco Use Types [...] Recorded PHQ-2 Total Score 0 11/18/2020 [facility] [...] documented as of this encounter Care Teams Cartridge Loader Relationship Specialty Start Date End Date Deep Pruitt APRN PCP - General 05/22/19 documented as of this encounter
--- OUTSIDE RECORDS SUMMARY | 2024-06-21 12:38 | XMS_ITS | Encounter Summary ---
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.] health care facility TSH W/REFLEX TO FT4 ([facility] LMW Q YH) Routine 09/09/2021 12:05 PM [...] prostate Routine general medical examination at a [facility] care facility ALBUMIN/CREATININE PANEL, URINE, RANDOM Routine 09/09/2021 11:01 AM EDT Encounter for routine screening for malformation using ultrasonics Special screening for malignant neoplasm of prostate Routine general medical examination at a [facility] care facility CBC WITH AUTO DIFFERENTIAL Routine 09/09/2021 10:58 AM EDT Encounter for routine screening for malformation using ultrasonics Special screening for malignant neoplasm of prostate Routine general medical examination at a [facility] care facility CBC AND DIFFERENTIAL Routine 09/09/2021 10:58 AM EDT Encounter for routine screening for malformation using ultrasonics Special screening for malignant neoplasm of prostate Routine general medical examination at a [facility] care facility HEMOGLOBIN A1C Routine 09/09/2021 10:58 AM EDT Encounter for routine screening for malformation using ultrasonics Special screening for malignant neoplasm of prostate Routine general medical examination at a health care facility documented in this encounter Results * PSA, total and free (09/09/2021 12:05 PM EDT) Prostate Specific Antigen, Total (YH) 0.578 0.000 - 3.900 ng/mL 09/13/2021 1:44 PM EDT [facility]PART[facility] OF [facility]ORATORY MEDICINE Prostate Specific Antigen, Free (YH) 0.28 0.00 - 3.90 ng/mL 09/13/2021 1:44 PM EDT [facility] OF [facility]ORY MEDICINE Comment:Prostate Specific An tigen, Free Percentage can not be calculated. PSA, Total value out of appropriate range. Blood Venipuncture / Unknown 09/09/2021 12:05 PM EDT 09/13/2021 10:48 AM EDT Narrative [facility] DEPARTMENT OF LABORATORY MEDICINE - 09/13/2021 [...] in the 2-4 ng/mL range. Deep Pruitt [facility] LAB BLOOD ORDERABLES Final Result Performing Organization Address City/State/[facility] Co de Phone Number [facility] DEPARTMENT OF LABORATORY MEDICINE [address] [place] [address] * (ABNORMAL) Comprehensive metabolic panel (09/09/2021 12:05 PM EDT) Sodium 140 136 - 144 mmol/L 09/09/2021 2:42 PM EDT [facility] Potassium 4.9 3.3 - 5.3 mmol/L 09/09/2021 2:42 PM EDT [facility] Chloride 101 98 - 107 mmol/L 09/09/2021 2:42 PM EDT [facility] CO2 27 20 - 30 mmol/L 09/09/2021 2:42 PM EDT [facility] Anion Gap 12 7 - 17 09/09/2021 2:42 PM EDT [facility] Glucose 148(H) 70 - 100 mg/dL 09/09/2021 2:42 PM EDT [facility] BUN 31(H) 6 - 20 mg/dL 09/09/2021 2:42 PM EDT [facility] Creatinine 1.40(H) 0.40 - 1.30 mg/dL 09/09/2021 2:42 PM EDT [facility] Calcium 9.5 8.8 - 10.2 mg/dL 09/09/2021 2:42 PM T [facility] BUN/Creatinine Ratio 22.1 8.0 - 23.0 0509/2021 2:42 PM EDT [facility] Total Protein 6.4(L) 6.6 - 8.7 g/dL 09/09/2021 2:42 PM EDT [facility] Albumin 3.6 3.6 - 4.9 g/dL 09/09/2021 2:42 PM T [facility] Total Bilirubin 0.2 <=1.2 mg/dL 09/09/2021 2:42 PM T [facility] Alkaline Phosphatase 135(H) 9 - 122 U/L 09/09/2021 2:42 PM T [facility] Alanine Aminotransferase (ALT) 40 9 - 59 U/L 09/09/2021 2:42 PM T [facility] Comment:Calcium dobesilate c an cause artificially low ALT results at therapeutic concentrations Aspartate Aminotransferase (AST) 33 10 - 35 U/L 09/09/2021 2:42 PM T [facility] Globulin 2.8 2.3 - 3.5 g/dL 09/09/2021 2:42 PM T [facility] A/G Ratio 1.3 1.0 - 2.2 09/09/2021 2:42 PM T [facility] AST/ALT Ratio 0.8 See Comment 09/09/2021 2:42 PM T [facility] Comment: Adult with mild elevations [...] >60 mL/min/1.7 3m2 09/09/2021 2:42 PM EDT [facility] Comment: Values under 60mL/min/1.73m2 may indicate CKD if noted for ?? more than 3 months. eGFR is only valid if creatinine is at steady state. eGFR (NON -Scottish) 53 >60 mL/min/1.7 3m2 09/09/2021 2:42 PM EDT [facility] Comment: Values under 60mL/min/1.73m2 may indicate CKD if noted for ?? more than 3 months. eGFR is only valid if creatinine is at steady state. 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 LAB BLOOD ORDERABLES Final Result Performing Organization Address City/[facility]/ZIP Co de Phone Number [facility] [address] [place] [address] * TSH w/reflex to FT4 ( [facility] LMW Q YH) (09/09/2021 12:05 PM EDT) Thyroid Stimulating Hormone 3.640 See Comment ??IU/mL 09/09/2021 2:42 PM EDT [facility] Comment: Male & Non- Females: 0.270-4.200 ??IU/mL 1st Trimester: 0.110-3.480 ??IU/mL 2nd Trimester: 0.320-3.850 ??IU/mL 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 LAB BLOOD ORDERABLES Final Result Performing Organization Address City/[facility]/ZIP Co de Phone Number [facility] [address] [place] [address] * LDL cholesterol, direct (09/09/2021 12:05 PM EDT) LDL Direct 63 See Comment mg/dL 09/09/2021 2:41 PM EDT [facility] Comment: LDL Cholesterol (mg/dL) ?Adults (>=18 years) ?Children (<18 years) Desirable ?<100 ? <110 Above Desirable ?100-129 ?Not Established Borderline-High ?130-159 ?110- 129 High ? 160-189 ?>=130 Very High? >=190 ?Not Established Blood Venipuncture / Unknown 09/09/2021 12:05 PM EDT 09/09/2021 12:05 PM EDT us Deep Pruitt APRN LAB BLOOD ORDERABLES Final Result Performing Organization Address [facility]/ZIP Co de Phone Number [facility] [address] [place] [phone] [place] [address] * (ABNORMAL) Albumin/creatinine panel, urine, random (09/09/2021 11:01 AM EDT) Albumin, Urine, Random 1,616.3 Reference Range Not Established mg/L 09/09/2021 2:52 PM EDT [facility] Creatinine, Urine, Random 35 Reference Range Not Established mg/dL 09/09/2021 2:52 PM EDT [facility] Albumin/Creatin ine Ratio, Urine, Random 4,684.9(H ) <30.0 mg/g Cr 09/09/2021 2:52 PM EDT [facility] Comment: High albuminuria (formerly microalbuminuria): ??30-300 mg/g Cr Very high albuminuria (overt albuminuria): ? >300 mg/g Cr Urine Collection / Unknown 09/09/2021 11:01 AM EDT 09/09/2021 11:01 AM EDT Deep Pruitt APRN URINE ORDERABLES Final Resu lt Performing Organization Address [facility] Co de Phone Number [address] [address] [phone] * (ABNORMAL) CBC auto differential (09/09/2021 10:58 AM EDT) WBC 13.5(H) 4.0 - 11.0 x1000/??L 09/09/2021 2:16 PM EDT [facility] RBC 5.05 4.00 - 6.00 M/??L 09/09/2021 2:16 PM EDT [facility] Hemoglobin 13.9 13.2 - 17.1 g/dL 09/09/2021 2:16 PM EDT [facility] Hematocrit 46.10 38.50 - 50.00 % 09/09/2021 2:16 PM EDT [facility] MCV 91.3 80.0 - 100.0 fL 09/09/2021 2:16 PM EDT [facility] MCH 27.5 27.0 - 33.0 pg 09/09/2021 2:16 PM EDT [facility] MCHC 30.2(L) 31.0 - 36.0 g/dL 09/09/2021 2:16 PM EDT [facility] RDW-CV 15.1(H) 11.0 - 15.0 % 09/09/2021 2:16 PM EDT [facility] Platelets 298 150 - 420 x1000/??L 09/09/2021 2:16 PM EDT [facility] MPV 13.0(H) 8.0 - 12.0 fL 09/09/2021 2:16 PM EDT [facility] Neutrophils 63.6 39.0 - 72.0 % 09/09/2021 2:16 PM EDT [facility] Lymphocytes 22.5 17.0 - 50.0 % 09/09/2021 2:16 PM EDT [facility] Monocytes 9.2 4.0 - 12.0 % 09/09/2021 2:16 PM EDT [facility] Eosinophils 3.6 0.0 - 5.0 % 09/09/2021 2:16 PM EDT [facility] Basophil 0.4 0.0 - 1.4 % 09/09/2021 2:16 PM EDT [facility] Immature Granulocytes 0.7 0.0 - 1.0 % 09/09/2021 2:16 PM EDT [facility] nRBC 0.0 0.0 - 1.0 % 09/09/2021 2:16 PM EDT [facility] ANC(Abs Neutrophil Count) 8.60(H) 2.00 - 7.60 x 1000/??L 09/09/2021 2:16 PM EDT [facility] Absolute Lymphocyte Count 3.05 0.60 - 3.70 x 1000/??L 09/09/2021 2:16 PM EDT [facility] Monocyte Absolute Count 1.24(H) 0.00 - 1.00 x 1000/??L 09/09/2021 2:16 PM EDT [facility] Eosinophil Absolute Count 0.49 0.00 - 1.00 x 1000/??L 09/09/2021 2:16 PM EDT [facility] Basophil Absolute Count 0.06 0.00 - 1.00 x 1000/??L 09/09/2021 2:16 PM EDT [facility] Absolute Immature Granulocyte Count 0.10 0.00 - 0.30 x 1000/??L 09/09/2021 2:16 PM EDT [facility] Absolute nRBC 0.00 0.00 - 1.00 x 1000/??L 09/09/2021 2:16 PM EDT [facility] Blood Venipuncture / Unknown 09/09/2021 10:58 AM EDT 09/09/2021 10:58 AM EDT Deep Pruitt APRN LAB BLOOD ORDERABLES Final Result [facility] [address] [place] [address] * (ABNORMAL) Hemoglobin A1c (09/09/2021 10:58 AM EDT) Hemoglobin A1c 11.5(H) 4.0 - 5.6 % 09/10/2021 6:36 PM EDT [facility]PART[facility] OF [facility]ORATORY MEDICINE Comment: Hemoglobin [...] mg/dL 283 mg/dL 09/10/2021 6:36 PM EDT [facility]IC[facility] Comment: Estimated average glucose (eAG) is a calculated value designed to estimate ??the expected average blood glucose level throughout the day from a single ??measurement of ??glycated hemoglobin A1C (HbA1c) and follows the calculation proposed by the [place] [employer] (Diabetes Care 31: 1-6, 2008). It may have less accuracy in children, women and patients with certain erythrocyte disorders. Blood Venipuncture / Unknown 09/09/2021 10:58 AM EDT 09/09/2021 10:58 AM EDT Deep Pruitt APRN LAB BLOOD ORDERABLES Final Result [facility]PARTMENT OF LABORATORY MEDICINE [address] [place] [address] documented in this encounter Visit Diagnoses Diagnosis [...] documented as of this encounter Care Teams Vegetable Loader Machine Operator Relationship Specialty Start Date End Date Deep Pruitt APRN PCP - General 05/22/19 documented as of this encounter
--- OUTSIDE RECORDS SUMMARY | 2024-06-21 12:38 | XMS_ITS | Clinical Summary ---
Author Organization [address] Address [address] [place] [id number] Care Team Providers Care Maintenance Worker Name Role Phone Deep Pruitt APRN [...] edema will order Compression sleeves today from [facility] today, Put on lower legs during [...] of insulin, Duration 99, Feeding difficulty R63.30 14686 mL 06/23/19 Active metFORMIN (GLUCOPHAGE) 1000 mg [...] AM with Arben Fountain DPM at the [facility] -Will f/u with Pt in a [...] appointment and was informed he can call [phone] to find a closer time Assessment & Plan (02/19/2022 1:59 PM EDT): -The Pt went to his Nuclear Medicine Chief Technologist and was c/o right kidney pain for [...] worse at night - pathway utilized through Payment plugin, patient eligible for molnupiravir, may benefit from [...] Ref. Range 04/07/2020 SPEP Interpretation Unknown ?? Hnrmq-4-Tvrwizfp Latest Ref Range: 0.2 - 0.3 g/dL 0.3 Mbbif-8-Hgntayfq Latest Ref Range: 0.5 - 0.9 g/dL 1.1 (H) Interpretation Unknown Comment Only Abnormal Protein Band 2 Latest Ref Range: NONE DETECTED g/dL CANCELED Abnormal Protein Band 3 Latest Ref Range: NONE DETECTED g/dL CANCELED Qdql-5-Tyieepng Latest Ref Range: 0.4 - 0.6 g/dL 0.5 Yakt-7-Pqeojayn Latest Ref Range: 0.2 - 0.5 g/dL [...] 04/08/2020 17:50 ?? Ref. Range 04/07/2020 Free [place] Latest Ref Range: 3.3 - 19.4 mg/L 35.9 (H) Free Lambda Latest Ref Range: 5.7 - 26.3 mg/L 26.6 (H) Free [place]/Lambda Ratio Latest Ref Range: 0.26 - 1.65 [...] 15:12 Ref. Range 04/07/2020 SPEP Interpretation Unknown Unchk-6-Ebgvxroc Latest Ref Range: 0.2 - 0.3 g/dL 0.3 Hlqtz-7-Jspmgrhi Latest Ref Range: 0.5 - 0.9 g/dL 1.1 (H) Interpretation Unknown Comment Only Abnormal Protein Band 2 Latest Ref Range: NONE DETECTED g/dL CANCELED Abnormal Protein Band 3 Latest Ref Range: NONE DETECTED g/dL CANCELED Cmvg-2-Qbjvwdyb Latest Ref Range: 0.4 - 0.6 g/dL 0.5 Hdqa-8-Soakrsdg Latest Ref Range: 0.2 - 0.5 g/dL [...] 04/08/2020 17:50 ?? Ref. Range 04/07/2020 Free [place] Latest Ref Range: 3.3 - 19.4 mg/L 35.9 (H) Free Lambda Latest Ref Range: 5.7 - 26.3 mg/L 26.6 (H) Free [place]/Lambda Ratio Latest Ref Range: 0.26 - 1.65 [...] labs to be processed Results for DARREL BHADRWAJ ( ) as of 04/08/2020 17:50 Ref. Range 04/07/2020 Free [place] Latest Ref Range: 3.3 - 19.4 mg/L 35.9 (H) Free Lambda Latest Ref Range: 5.7 - 26.3 mg/L 26.6 (H) Free [place]/Lambda Ratio Latest Ref Range: 0.26 - 1.65 [...] like to speak with his pcp first [phone] Phone Conversation with Pt over the phone: PCP called czech speaking (uncontrolled diabetic) Pt over the phone, [...] Tried to call the Pt using the Macedonian Interpretor [id number], V/M was not set up [...] have CC'd Ricarda Du MD, his primary agricultural engineering technicians. She has a phone consult with him [...] all the Pt medication bottle be in czech, Pt had a medication (allopurinoL (ZYLOPRIM) 100 mg tablet) error because he can not read in Jordanian, the Pt was prescribed 1/2 tab but [...] appointment to see me at the front office representative ?? Latest Reference Range & Units 09/09/21 12/15/21 BUN 7 - 25 mg/dL 31 (H) 29 (H) Creatinine 0.70 - 1.30 mg/dL 1.40 (H) 1.55 (H) BUN/Creatinine Ratio 6 - 22 (calc) 22.1 19 eGFR (NON -Libyan) >60 mL/min/1.73m2 53 eGFR (Afr Amer) >60 [...] Range: 8.0 - 23.0 22.1 eGFR (NON -Libyan) Latest Ref Range: >60 mL/min/1.73m2 53 eGFR [...] Taylor Malagon APRN at the Nephrology at [address] [place] [address], The Renal department is working on getting the Pt a 24 hour HTN monitor to assess the effectiveness of his recent medication changes, used czech interpretor [id number] ?? 07/13/2021 Renal Referral Note:?? Assessment and [...] effectiveness of his recent medication changes, used czech interpretor 9217 07/13/2021 Renal Referral Note: Assessment [...] given a referral to talk with the [facility] Laydown Machine Operator for further assessment of his current diet [...] and magnesium supplements that he said a barrel endshake adjuster told him were good for his kidneys. [...] preparation for his first visit with a agricultural engineering technicians, Ricarda Du MD on 04/07/2020. Assessment & Plan (02/12/2020 2:18 PM EDT): Pt was recently in the hospital for Kidney issues, the Pt missed a previous Kidney appointment and will ask Pt to reschedule another Kidney appointment Date & Time 02/25/2020 10:00 AM Provider Taylor Malagon APRN Department [facility] at [address] [facility] Nephrology [address] [facility] 2nd Floor [facility] [address] Comment: Pt needs a Kidney referral due [...] 23 (H) 23 (H) 14.7 eGFR (NON -Libyan) Latest Ref Range: >60 mL/min/1.73m2 76 77 [...] (see MRI of Brain from 2017 under [facility] Multimedia -Significant deficits on neurologic exam Memory loss and Left handed weakness -Imaging and prior evaluation -Current blood thinning agents is aspirin -Potential details to include, when relevant: poor GAIT, uses a walker to get around -How the diagnosis was made: Pt lived in [facility] at the time, Under Multimedia in [facility] see specific file at specific date [id number].TIF Image MRI Result [facility] - MRI BRAIN CVA -09/25/2016 [id number].TIF Image Evaluation [facility]- Left handed weakness note - 02/20/2017 ?? [...] a letter to be given to the [employer] advising stating that the Pt is disabled and needs help with housing Is there a form to be fill out from the [employer] advising that the Pt is disabled and needs help with housing t 03/26/21 Oksana Fox to Deep Pruitt NP Summary: Letters needed by patient This display card writer met with patient at the clinic today 03.26.21 per nurses request, to assistance with letters that the patient is requesting. This display card writer spoke to patient and patient is [...] Patient is also requesting a letter for [employer] advising that he is disabled. Patient stated that he has already applied for and wants this letter to help him get Housing CCM: 15 minutes 04/11/2021 Deep Pruitt APRN Assessment & Plan (05/31/2020 5:20 PM EST): Pt had a CVA from 2017 and needs Neuro clearance before getting a Colonoscopy Presumed etiology of prior stroke (see MRI of Brain from 2017 under [facility] Multimedia Significant deficits on neurologic exam Memory loss and Left handed weakness Imaging and prior evaluation Current blood thinning agents is aspirin Potential details to include, when relevant: poor GAIT, uses a walker to get around How the diagnosis was made: Pt lived in [facility] at the time, Under Multimedia in [facility] see specific file at specific date [id number] Image MRI Result [facility] - MRI BRAIN CVA -09/25/2016 [id number].TIF Image Evaluation [facility]- Left handed weakness note - 02/20/2017 Required [...] is working with his Diabetic Specialist at [facility] and has an appointment next week, will increase his Gababentin to 800 mg PO TID which has helped with his neuropathic pain, Spent 25 mins with Pt using the Product Support Technician Microalbuminuric diabetic nephropathy (HC Code) (HC CODE) [...] Ricarda Du MD at the Nephrology at [address] [place] [address] Results for DARREL BHARDWAJ ( ) as [...] ) as of 09/19/2019 07:04 eGFR (NON -Libyan) Latest Ref Range: > OR = 60 [...] for Bariatric surgery and Pt needs a surgical technology instructor Assessment & Plan (09/10/2021 5:42 PM EDT): Pt has a BMI of 40.4 and is working with the wellness clinic to work on his weight loss plan, putting a referral in for Bariatric surgery and Pt needs a surgical technology instructor Assessment & Plan (09/26/2019 9:45 AM EDT): Pt has a BMI of 40.4 and is working with the wellness clinic to work on his weight loss plan, putting a referral in for Bariatric surgery and Pt needs a surgical technology instructor Assessment & Plan (09/09/2019 2:47 PM EDT): [...] whole encounter. The interview was conducted in Macedonian which is my lower brule language. I have encouraged Mr. Bhardwaj to contact us with any questions, concerns or clinical changes. Plan: 1. Continue current therapy. 2. No need for supplemental oxygen. Assessment & Plan (12/23/2021 12:10 PM EDT): -The Pt continues to feel like he is constantly SOB and is asking to be put on Oxygen SOFTWARE SALES EXECUTIVE -The Pt was given a list of labs to complete and once done then the Pt will be scheduled appointment with his Battery Assembler Plastic -The Pt and the Battery Assembler Plastic will decide together if the pt needs to be on O2 SOFTWARE SALES EXECUTIVE or not 08/18/2021 Pulmonary Note: Assessment: Mr. [...] ways in which he can request an ticket scheduler over the phone and I am happy [...] complaints are out of proportion to seemingly hzjm-ai-jbfzblse asthma and his dyspnea is likely multifactorial. [...] ways in which he can request an ticket scheduler over the phone and I am happy [...] complaints are out of proportion to seemingly cnjl-gb-jxocuqbz asthma and his dyspnea is likely multifactorial. [...] in collaboration with Dr. Deep Yo. ?? [facility] Quality Initiatives: ?? Tobacco counseling: Patient is [...] allergies spent 20 mins with Pt using Macedonian Interpretor 1674 Assessment & Plan (11/14/2020 11:15 [...] 7 years for colon cancer screening purposes.??Used Macedonian interpretor 8245 Assessment & Plan (06/16/2021 10:23 [...] years for colon cancer screening purposes. Used Macedonian interpretor 8245 Assessment & Plan (09/13/2020 7:30 [...] years for colon cancer screening purposes. Used Macedonian interpretor 3293 Assessment & Plan (06/24/2020 4:13 PM EST): Pt was informed of the following message and told to call and was asked to call to make a colonoscopy appointment 06/03/20 12:29 PM Message from [facility] at [address] [place] [address] Called patient to cancel pre colon appointment, [...] year ago the Pt had colonoscopy at [facility] in [facility] and was told to return in [...] REPORT ? Patient: DARREL BHARDWAJ ?MR #: [id number] ([id number]) ?Submitted by: Hedy Hameed MD STOMACH, BIOPSY [...] disordered breathing. RECOMMENDATIONS / PLAN : -Current [employer] [employer] recommendations for treatment of [...] Pt Called patient with Jose Rolon. Nancy #[id number]. Patient said that he has an old ResMed that he received in [place]. He doesn't know his mode or settings. Nor does he know his previous DME Assessment & Plan (09/10/2021 5:40 PM EDT): The Pt has an Sleep Apnea appointment on 09/24/2021 at??4:20 PM with Ryanne Ocasio MD at the Diabetes Center at [address] [facility] Assessment & Plan (09/24/2019 3:03 PM EDT): [...] spent 45 mins with Pt with a sr account executive SLEEP STUDY - [facility] - [phone] Assessment & Plan (09/09/2019 3:22 PM EDT): Pt typically sleep 2.5 hours a night, Pt still has to return his sleep apnea machine to [place] before a sleep apnea clinic in [place] will talk to him, Pt has a BMI of 40.4 and PCP will put a referral in for sleep apnea for Pt today, spent 35 mins with Pt with a sr account executive Diabetic foot (HC Code) (HC CODE) 02/07/2019 Assessment & Plan (06/24/2022 9:27 AM EST): The Pt continues to deal with bilateral foot pain and wears a pair of Diabetic shoes with specification ordered by his Venture Capitalist Doctor Assessment & Plan (05/31/2021 2:00 PM EST): The Pt continues to deal with bilateral foot pain and needs to get a pair of Diabetic shoes with specification ordered by his Venture Capitalist Doctor and will increase Gabapentin from 400 mg PO BID to 800 PO BID Assessment & Plan (01/04/2021 10:02 AM EDT): - recently seen in mid-December by Podiatry- note reviewed Assessment & Plan (10/14/2020 9:29 AM EDT): The Pt continues to deal with bilateral foot pain and needs to get a pair of Diabetic shoes with specification ordered by his Venture Capitalist Doctor see below: 08/26/2020 Podiatry Note: Bilateral [...] Also using his neuropathic compounding formula from [employer] as an adjunctive therapy and likes it [...] is working with his Diabetic Specialist at [facility] and has an appointment next week, will increase his Gababentin to 800 mg PO TID and assess effectiveness in one month Assessment & Plan (02/07/2019 6:48 AM EDT): Pt needs a Podiatry appointment due to toe nails need to be cut and Pt needs establish care with a Venture Capitalist for his annual diabetic foot care Diabetic eye exam 02/07/2019 Assessment & Plan (06/24/2022 9:29 AM EST): The Pt stated today that he saw his Eye Doctor, unable to see event in [facility] Assessment & Plan (09/18/2020 6:10 PM EDT): Pt has complaints of vision changes and he blew a blood vessel on his sclera, 3 years ago the Pt would see his Retina Doctor who did a lazer every 6 month, Pt needs a retinal eye referral 09/18/2020 Jeovanny Lynn: I put a referral in for the Pt and lately the [facility] has not been given dates [...] is in need of seeing eye doctor [facility]. Patient can be reached at [phone]. Ms. Rosales can be reached at the same number [phone]. Thank you Deep Assessment & Plan (05/28/2020 [...] call the [facility] [address] [phone] Assessment & Plan (10/14/2020 2:13 PM EDT): [...] (01/04/2019 4:02 PM EDT): Pt needs a Macedonian speaking Nurse to help him manage his [...] -Pt will be called biweekly by the [facility] Nurse to review his FBS finger sticks [...] medications -He has been following with the [facility] team and reports taking all of [...] decided to move his family back to [facility] due to being closer to family and [...] billing issues. He also was supposed to pickup driver a Dexa scanner/sensor, but he was unable [...] (DEXCOM G6 SENSOR) device and scanner Asked Reconciliation Clerk to schedule a 1/2 hour Nurse visit [...] 200-300 average, checks ACHS -Pt has his [facility] appt on 04/21/2022 at 11:30 AM [...] Pt will continues to go to his [facility] appointments to review his Dexcom G6 numbers and make appropriate medication changes -If all that happens then the Pt can also scan before each meal, switch from taking 30 units of prandial insulin to start a Sliding Scale -Will leave note with Pt's Telephone Coin Box Collector that the Pt needs to have Provider use a Product Support Technician due to his poor Jordanian skills -The Pt has received the Dexcom G6 electronics computer mechanic and scanner but still does not know [...] Pt will continues to go to his [facility] appointments to review his Dexcom G6 [...] EDT): -Met with Pt and with our [facility] RN who was able to translate the [...] 190u??bid 2.Novolog 30??before meals + supplementary sliding -544-->4u, 200-249-->6u,??250-299-->8u, 300-349-->10u, >350-->12u 3.continue with ??trulicity 4.5 mg weekly, jardiance 25 mg daily and metformin 1000 mg bid 4.contact us in 1 week to report BG 5.Check BS 4X/day. Keep organized log and bring it next time.??Call [facility] for use of Dexcom CGM 6.Hypoglycemia management:??Carry [...] yes ?? Recommendations: #Diabetes: 1. Continue with [id number] 190u bid 2.Novolog 30 before meals + supplementary sliding scale ?150-199-->??4??units ?200-249-->??6??units ?250-299-->??8??units ?300-349-->??10units ?>350-->?12 3.continue with trulicity 4.5 mg weekly, jardiance 25 mg daily and metformin 1000 mg bid 4.contact us in 1 week to report BG 5.Check BS 4X/day. Keep organized log and bring it next time. Call [facility] for use of Dexcom CGM 6.Hypoglycemia management: [...] his painful foot issues -Will talk with [facility] Nurse about the Pt and support systems may not be compliant with taking meds and Insulin on a regular basis -Will work on bring the Pt's A1C down, it has been in the 's for the past year and Pt not wanting to see [facility] or [facility] Diabetic Specialist -Will have to [...] the Bariatric Doctor for weight loss -Used Product Support Technician # [id number] -Pt wished he could get his diabetic care restarted at the [facility] -Pt does not want to go to [facility] Diabetic Clinic or the [facility] due to not feeling comfortable [...] Pt needs to be rescheduled with our [facility] Diabetic Clinic with Zena Hines PA, the Pt did not like dealing with [facility] due to not feeling comfortable with the [facility] Providers and has had missed multiple appointments The Pt continues to deal with an elevated A1C, Pt wished he could get his diabetic care restarted at the [facility], will refer today ?? Results for [...] MD sent at 09/30/2021 Regarding: RE: reschedule refrigerator crater appointment I think this is his 3rd [...] Ocasio MD at the Diabetes Center at [address] [place] [address], Pt wished he could get his diabetic care restarted at the [facility], Pt advised to go to his [...] LDL 90 01/25/2021 MALCRR 3,278 (H) 09/16/2019 Outpatient/PROFILE SAW OPERATOR meds BLOOD GLUCOSE METER (galaxyadvisorsUCH VERIO FLEX METER) device dulaglutide (TRULICITY) 4.5 mg/0.5 mL PnIj flash glucose (FREESTYLE ORTEGA 14 DAY) scanning reader FREESTYLE ORTEGA 14 DAY sensor kit insulin aspart (NOVOLOG FLEXPEN INSULIN) 100 unit/mL (3 mL) pen insulin regular human CONCENTRATED 500 units/mL (HUMULIN R U-500, CONC, KWIKPEN) injection pen JARDIANCE 25 mg tablet metFORMIN (GLUCOPHAGE) 1000 mg tablet - continues to see [facility] - recent finger stick readings 350, no symptoms of hyperglycemia - discussed with patient taking medications as prescribed as well as changing diet - recommended to reduce carb intake and simple carbs throughout the day and night and see if fasting glucose improved in morning - plans to see [facility] soon Assessment & Plan (04/23/2021 10:36 AM EST): The Pt continues to work with his [facility] Diabetic Specialist and stated that his Finger sticks range between 98-160, Pt needs to get additional labs to assess kidney fx and his diabetes Assessment & Plan (01/08/2021 1:21 PM EDT): The Pt continues to deal with elevated A1C and sees his Telephone Coin Box Collector on a regular basis Results for DARREL [...] and has a f/u appointment with his Telephone Coin Box Collector on 09/29/2020 08/27/2020 Endocrine referral: Assessment and [...] his blood sugars. Could also consider insulin train director like pioglitazone at low dose. ?? Discussed [...] Krystle Santos RN Spoke with pharmacist at [facility], states if PCP will send scripts for [...] between 7 or 8 and talked through sr account executive [phone] that the Pt has to have [...] to 110 and send message to his net lead developer Isha [facility] APRN??with [facility] Assessment & Plan (05/28/2020 3:01 [...] to 105 and send message to his net lead developer Isha [facility] APRN with [facility] ?? Assessment & Plan (04/08/2020 [...] the care of Isha [facility] APRN with [facility] and was last prescribed insulin [...] - 64 pg/mL 64.2 74 (H) Vitamin Z94-Cdekznl Latest Ref Range: 20 - 50 ng/mL [...] Diabetic care will be transferred over to [facility] and he has the following [...] like to speak with his pcp first [phone] (czech speaking) Assessment & Plan (11/13/2019 7:10 PM [...] - 22 (calc) 23 (H) eGFR (NON -Libyan) Latest Ref Range: > OR = 60 [...] Pt is currently seeing our Diabetic Specialist SOFTWARE SALES EXECUTIVE at [facility], talking with SOFTWARE SALES EXECUTIVE on phone the Pt has developed an [...] 10, Pt needs to meet with the [facility] Nurse with the goal to bring his [...] will continue to see Diabetic Clinic at [facility] for additional medication adjustments and [...] will continue to see Diabetic Clinic at [facility] and re-evaluate Pt care in [...] 6-8 weeks to be seen by his wrapper and preserver Dr. Newberry. ?? Attending Addendum: I have [...] that he is on this. I contacted [facility] pharmacy and they reported that on 06/28 [...] call back to Fani Heath PharmD at [phone] 08/04/21 Fani Heath PharmD called Pt Called patient for scheduled pharmacist HTN visit. I was not able to reach patient and LVM requesting a call back. ID [id number] assisted call. Of note, appears patient was [...] Dr. Newberry and should be visible in [facility]. We would like you to please call [...] pain and dyspnea # h/o CVA (NOT MD -- historical charting error) # Dyslipidemia with [...] pain and dyspnea # h/o CVA (NOT MD -- historical charting error) # Dyslipidemia with [...] basis by his , will ask our [facility] Nurse to call Pt and verify their [...] basis by his , will ask our [facility] Nurse to call Pt and verify their [...] recent creatinine/potassium from 01/07 stable, recheck in [facility] this week Assessment & Plan (01/04/2021 9:26 [...] in one week to manage HTN, used swedger 9677, Pt denies experiencing any pain or tightness [...] EST): When the Pt was admitted to [facility] for [facility] they had stopped his Lisinopril [...] medication up weekly, spent 35 min with Product Support Technician [id number], will f/u with Pt in one month [...] needs to get all his meds in czech and has an appointment on 02/24/2020 02/24/2020 ??3:40 PM Provider Deep Pruitt APRN [facility] Assessment & Plan (02/22/2020 5:19 AM EDT): I see that Losartan help protect the kidneys from damage due to diabetes, I will discontinue the atenolol and start him at Losartan 25 mg and slowly titrate him up and the Pt needs to get all his meds in czech and has an appointment on 02/24/2020 02/24/2020 ??3:40 PM Provider Deep Pruitt APRN [facility] Assessment & Plan (03/16/2019 6:10 AM [...] (calc) 6.9 (H) The ASCVD Risk score (Perryhenry WOODWARD Jr., et al., 2013) failed to calculate for the following reasons: The patient has a prior MD or stroke diagnosis Assessment & Plan (12/18/2018 [...] to call Pt with results seen below (Macedonian only please) -And let him know that his UTI results were negative and there is no reason for antibiotics 09/08/2021 PCP Note: Pt c/o burning with urination for the past 2 day, will ask Pt to do a urine culture before prescribing an Antibiotic medication used Macedonian interpretor [id number] 09/10/2021 PCP Addendum Note: The Pt has [...] years ago the Pt had colonoscopy at [facility] in [facility] and was told to return in a year for further surveillance because he had several polyps removed, the concern is that the Pt had a CVA x 2 in 2017 and need Neuro clearance and the Neuro referral was put in today Assessment & Plan (11/13/2019 7:05 PM EDT): Pt had a Colonoscopy done in [facility] in [facility] one year ago and was told [...] AM EDT): 01/02/2020 the 49 yo male (Macedonian speaking only) with a BMI of 39.6, last A1C Dec 2019 increased to 13.7, in 2017 the Pt had a right sided stroke (minimal residual speech and walking issues) and is working with our Diabetic SOFTWARE SALES EXECUTIVE Specialist to bring his sugars down, Pt [...] Plan (11/13/2019 7:08 PM EDT): Used a Product Support Technician [id number] for the entire 25 min visit, [...] with Pt in 1 weeks, used a Product Support Technician [id number] throughout the visit -10/23/2019 the Pt again [...] with Pt in 2 weeks, used a Product Support Technician Propio through out the visit Assessment & [...] (H) -Pt will be referred to the [facility] Laydown Machine Operator to assess if his current diet is [...] Perla Rice RN message to Deep Pruitt SOFTWARE SALES EXECUTIVE Call was returned to patient and his [...] input from his primary care physician and agricultural engineering technicians would be helpful. Considerations would include: stopping amlodipine, increasing diuretics, re-assessing labs for kidney function (e.g. is proteinuria worsening), and dietary interventions. Also counseled patient that weight loss would likely be helpful. I think his supplier quality engineering manager can be helpful with managing his [...] input from his primary care physician and agricultural engineering technicians would be helpful. Considerations would include: stopping amlodipine, increasing diuretics, re-assessing labs for kidney function (e.g. is proteinuria worsening), and dietary interventions. Also counseled patient that weight loss would likely be helpful. I think his supplier quality engineering manager can be helpful with managing his [...] plan for regular follow up with your supplier quality engineering manager, primary care physician, and agricultural engineering technicians ?? Follow-up: as needed with me ?? Other interventions: recommend keeping the legs elevated when sitting (try to get feet above the level of the heart to get the fluid to come down; also recommend new pair of custom graduated compression stockings - wear daily - please call [facility] for an appointment to be measured for the new stockings so they fit you well. [facility] [address] [place] [address], [place] [address] , PCP Notes: Will stop Amlodipine 5 mg PO QD and start Pt on Spirolactone 25 mg PO QD and assess in 2 weeks if Spirlactatone needs to be increased to 25 mg BID Will fax to [facility] order for Compression stocking and put contact info in AVS for the Pt to call and arrange for sizing CCM: 10 minutes 12/29/2020 Deep Pruitt APRN Assessment & Plan (06/24/2020 3:44 PM EST): 06/13/2020 the Pt had 2 pairs of Knee high compression stockings ordered and sent to [facility] and the Pt has to call [facility] so he can be measured and then pick them up when they arrive Assessment & Plan (06/13/2020 7:10 AM EST): Pt continues to deal with bilateral lower extremity edema will order Compression sleeves today from [facility] today, Put on lower legs during the day and take off at night, and wash and let dry and put on 2nd pair on the following day for Edema, lower extremity R60.0, will send to [facility] today Assessment & Plan (05/26/2020 5:58 [...] in 2 days at his next appointment [facility] Interpret[facility] #[id number] CCM: 20 minutes 05/26/2020 Deep [...] MD Department Ambulatory Surgical Specialties - Vascular 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 More than 4 times per year [...] Date Recorded PHQ-2 Total Score 2 02/17/2022 [facility] Occupat ional Health - Occupational Stress [...] your living situation today? [facility] 05/19/2022 Sex and Gender [...] C screening Completed 02/06/2020, 019 Pneumococcal Vaccine (2 - 49 years) Discontinued 03/24/2022, 01/21/2021 Pneumococcal Vaccine (50+ years) Completed 03/24/2022, 01/21/2021 Covid-19 vaccine series Completed 02/01/20 24, 04/14/2021, [...] 9:01 AM EDT Screening for prostate cancer [place] PROPHYLAXIS - ADULT Routine 08/10/2021 10:45 AM EDT Encounter for dental exam and cleaning w/o abnormal findings [place] BITEWINGS - FOUR RADIOGRAPHC IMAGES Routine 07/05/2021 10:30 AM EST Encounter for dental examination [place] PERIODIC ORAL EVALUATION EST PT Routine 07/05/2021 10:30 AM EST Encounter for dental examination Oral frictional keratosis Partially edentulous mandible, unspecified edentulism class Secondary dental caries associated with failed or defective dental yazidi Dental caries on smooth surface penetrating into [...] Results * (ABNORMAL) POCT HgbA1c, total CPT: 05772 (06/23/2022 4:21 PM EST) Pathologist [facility] Hemoglobin A1C, POC 10.6 4.0 - 6.0 % [facility] Test Lot Number [id number] [facility] Test Lot Exp Date 09/18/22 Date Format: MM/DD/YYYY [facility] Blood specimen (specimen) 06/23/2022 4:21 PM EST Deep Pruitt APRN POINT OF CARE TEST ORDERABL ES Final Result Performing Organization Address [facility] Co de Phone Number [facility] * (ABNORMAL) LDL cholesterol, direct (03/14/2022 9:17 AM EST) Pathologist [facility] Direct LDL 101(H) <100 mg/dL [facility] [...] Comment Performing Lab: ?Site ID: [id number] ?Name: [facility] ?Address: [address] [place] [address], [place] [address] ?Director: Yadira Bowman M.D. Deep Pruitt APRN LAB BLOOD ORDERABLES Final Result Performing Organization Address City/[facility] Co de Phone Number [facility] [address] [place] [address] * (ABNORMAL) Albumin/creatinine panel, urine, random (02/15/2022 2:02 PM EDT) Pathologist [facility] Albumin, Urine, Random 1,885.3 Reference Range Not Established mg/L 02/15/2022 3:42 PM EDT [facility] Creatinine, Urine, Random 60 Reference Range Not Established mg/dL 02/15/2022 3:42 PM EDT [facility] Albumin/Creatin ine Ratio, Urine, Random 3,168.6(H ) <30.0 mg/g Cr 02/15/2022 3:42 PM EDT [facility] Comment: Moderately increased albuminuria (formerly microalbuminuria): ??30-300 mg/g Cr Significantly increased albuminuria (overt albuminuria): ? >300 mg/g Cr Urine Collection / Unknown 02/15/2022 2:02 PM EDT 02/15/2022 2:59 PM EDT Yue Dominguez POULTRY PICKING MACHINE TENDER URINE ORDERABLES Final Res ult Performing Organization Address City/State/[facility] Co de Phone Number [facility] [address] [place] [address] * PSA, total (Q) (09/09/2021 9:01 AM EDT) Pathologist [facility] Prostate Specific Antigen Total 0.44 < OR = 4.00 ng/mL [facility] Comment: The total PSA value from this assay system is standardized against the WHO standard. The test result will be approximately 20% lower when compared to the equimolar-standardized total PSA ([place]). Comparison of serial PSA results should be [...] Comment Performing Lab: ?Site ID: [id number] ?Name: [facility] ?Address: [address] [place] [address], [facility], [place] [address] ?Director: Yadira Bowman M.D. us Deep Pruitt POULTRY PICKING MACHINE TENDER LAB BLOOD ORDERABLES Final Result [facility] [address] [place] [address], [facility] * Colonoscopy (09/03/2020 10:16 AM EDT) [facility] Colonoscopy [facility] Endoscopy Patient Name: Darrel Bhardwaj ? Procedure Date: 09/03/2020 10:16 AM ?Date of : 1970 Age: 50 ? Admit Type: Outpatient Gender: Male ?CSN #: [id number] Note Status: Finalized ?Procedure Date no Time: 09/03/2020 Attending MD: Nolan Sylvester , ? Procedure: ? Colonoscopy Indications: ? High risk colon cancer surveillance: Personal history of ? colonic polyps Providers: ? Nolan Sylvester (Doctor) Medicines: ? Monitored Anesthesia Care Complications: [...] bowel preparation was evaluated using the BBPS ([place] ? Bowel Preparation Scale) with scores of: [...] Procedure Code(s): ?? --- Professional --- ? 75190, Colonoscopy, flexible; with biopsy, single or ? multiple Diagnosis Code(s): ?? --- Professional --- ? Z86.010, Personal history of colonic polyps ? D12.0, Benign neoplasm of cecum CPT copyright 2018 [employer]. All rights reserved. The codes documented in this report are preliminary and upon independent insurance adjuster review may be revised to meet current [...] In: 10:41:36 AM Scope Out: 10:58:33 AM [facility] 09/03/2020 10:1 6 AM EDT Provider Not In System GI PROCEDURE ORDERABLES F inal Result [facility] * Hepatitis C Ab with reflex to HCV PCR (02/06/2020 7:18 AM EDT) Hepatitis C Antibody Negative Negative 02/06/2020 4:21 PM EDT [facility] Comment:A negative result do es not exclude HCV infection, since antibodies are not detectable for 4-8 weeks after initial infection, or may not develop in compromised hosts. In high-risk individuals, repeat antibody testing in 2 months and/or HCV RNA PCR should be considered. Blood Venipuncture / Unknown 02/06/2020 7:18 AM EDT 02/06/2020 8:06 AM EDT Jordyn Reiiner POULTRY PICKING MACHINE TENDER LAB BLOOD ORDERABLES Fauzia l Result Performing Organization Address City/[facility] Co de Phone Number [facility] [address] [place] [address] * HIV 1/2 ag/ab, w/reflexes (Q) (12/10/2018 [...] ?? For additional information please refer to http://education.[facility].com/faq/EKC116 (This link is being provided for informational/ educational purposes only.) The performance of this assay has not been clinically validated in patients less than 2 years old. Blood 12/10/2018 10:3 2 AM EDT 12/10/2018 10:32 AM EDT Carlos Eduardo Joyner MD LAB BLOOD ORDERABLES Fi nal Result [facility] [address] [place] [address] from Last 3 Months or Most Recently Relevant to Health Maintenance Insurance [place] Advance Directives * Full ACLS (Latest Code Status on File) Date Activated Date Inactivated Comments 02/04/2020 9:46 PM 02/07/2020 8:23 PM Question Answer Comments With Whom was the Code Status Discussed? Patient Care Teams Maintenance Worker Relationship Specialty Start Date End Date Deep Pruitt APRN PCP - General 05/22/19
--- OUTSIDE RECORDS SUMMARY | 2024-06-21 12:38 | XMS_ITS | Encounter Summary ---
Author Organization [facility] Address [address] [place] [address] Care Team Providers Care Brattice Builder Name Role Phone Deep Pruitt APRN Primary Care Provider Reason for Visit * Reason Comments Medication Refill Encounter Details Date Type Department Care Team ([facility] st Contact Info) Description 09/23/2020 Refill [facility] [address] [place] [address] Deep Pruitt APRN [address] [place] [phone] Medication Refill Social History Tobacco Use [...] Answer Date Recorded PHQ-2 Score 2 07/07/2020 [facility]at ional [facility] - Occupational Stress Questionnaire Answer Date [...] documented as of this encounter Care Teams Brattice Builder Relationship Specialty Start Date End Date Deep Pruitt APRN PCP - General 05/22/19 documented as of this encounter
--- OUTSIDE RECORDS SUMMARY | 2024-06-21 12:38 | XMS_ITS | Encounter Summary ---
Author Organization [facility] Address [address] [place] [address] Care Team Providers Care Pricing Strategist Name Role Phone Deep Pruitt APRN Primary Care Provider [phone] Reason for Visit * Reason Comments Other Advice Only Encounter Details Date Type Department Care Team ([facility] Contact Info) Description 09/28/2021 Telephone [facility] [address] [place] [address] Deep Pruitt APRN [address] [place] [address] Other; Advice Only Social History [...] Recorded PHQ-2 Total Score 5 09/14/2021 [facility] of Occupat ional [...] be given because his underlying condition. Patient [phone] documented in this encounter Plan of Treatment Not on file documented as of this encounter Visit Diagnoses Not on filedocumented in this encounter Additional Health Concerns Infection Onset Date Last Indicated Resolved Time COVID-19 09/29/2021 09/29/2021 10/19/2021 7:19 PM EDT Assessment Noted Time PHQ-9 Depression Total Score: 7 09/15/19 22 10:31 AM EDT documented as of this encounter Care Teams Pricing Strategist Relationship Specialty Start Date End Date Depe Pruitt APRN PCP - General 05/22/19 documented as of this encounter
--- OUTSIDE RECORDS SUMMARY | 2024-06-21 12:38 | XMS_ITS | Encounter Summary ---
Author Organization [facility] Address [address] [place] [address] Care Team Providers Care Shank Taper Name Role Phone Deep Pruitt APRN Primary Care Provider Encounter Details Date Type Department Care Team (Latest Contact Info) Description 09/13/2021 Transcribed Orders [facility] Specimens [address] [place] [address] Deep Pruitt APRN [address] [place] [address] Encounter for routine screening for [...] often do you attend chur ch or roman catholic services? Never 01/03/2020 Do you belong [...] Date Recorded PHQ-2 Total Score 5 09/14/2021 [facility] of Occupat ional [...] - 3.900 ng/mL 09/13/2021 1:44 PM EDT COUNT INCLUDES THE [facility] DEPART[facility] OF LABORATORY MEDICINE Prostate Specific Antigen, Free (YH) 0.28 0.00 - 3.90 ng/mL 09/13/2021 1:44 PM EDT COUNT INCLUDES THE [facility] LABOR[facility]ORY MEDICINE Comment:Prostate Specific An tigen, Free Percentage can not be calculated. PSA, Total value out of appropriate range. Blood Venipuncture / Unknown 09/09/2021 12:05 PM EDT 09/13/2021 10:48 AM EDT Narrative COUNT INCLUDES THE [facility] DEPARTMENT OF LABORATORY MEDICINE - 09/13/2021 [...] Pruitt APRN LAB BLOOD ORDERABLES Final Result COUNT INCLUDES THE [facility] DEPARTMENT OF LABORATORY MEDICINE [address] [place] [address] documented in this encounter Visit Diagnoses Diagnosis [...] documented as of this encounter Care Teams Shank Taper Relationship Specialty Start Date End Date Deep Pruitt APRN PCP - General 05/22/19 documented as of this encounter
--- OUTSIDE RECORDS SUMMARY | 2024-06-21 12:38 | XMS_ITS | Encounter Summary ---
Author Organization [facility] Address [address] [place] [address] Care Team Providers Care Planning Analyst Name Role Phone Deep Pruitt APRN Primary Care Provider Reason for Visit * Reason Comments Medication Refill Encounter Details Date Type Department Care Team ([facility] st Contact Info) Description 10/20/2020 Refill [facility] [address] [place], [place] [phone] Deep Pruitt APRN [address] [place] [address] Medication Refill Social History Tobacco [...] Answer Date Recorded PHQ-2 Score 2 07/07/2020 [facility] of Occupat ional Health [...] documented as of this encounter Care Teams Planning Analyst Relationship Specialty Start Date End Date Deep Pruitt APRN PCP - General 05/22/19 documented as of this encounter
--- OUTSIDE RECORDS SUMMARY | 2024-06-21 12:38 | XMS_ITS | Encounter Summary ---
Author Organization [facility] Address [address] [place] [address] Care Team Providers Care Raw Scales Operator Name Role Phone Deep Pruitt APRN Primary Care Provider Reason for Visit * Reason Comments Medication Refill Encounter Details Date Type Department Care Team ([facility] st Contact Info) Description 11/11/[address] [facility] [address] [place] [address] Deep Pruitt APRN [address] [place] [phone] Medication Refill Social History Tobacco Use [...] 07/07/2020 [facility] of Occupat ional [facility] - [...] documented as of this encounter Care Teams Raw Scales Operator Relationship Specialty Start Date End Date Deep Pruitt APRN PCP - General 05/22/19 documented as of this encounter
--- OUTSIDE RECORDS SUMMARY | 2024-06-21 12:38 | XMS_ITS | Encounter Summary ---
Author Organization [facility] Address [address] [place] [address] Care Team Providers Care Entry Level Paralegal Name Role Phone Deep Pruitt APRN Primary Care Provider Reason for Visit * Reason Comments Medication Refill Encounter Details Date Type Department Care Team ([facility] st Contact Info) Description 09/16/2021 Refill [facility] [address] [place] [address] Deep Pruitt APRN [address] [place] [phone] Medication Refill Social History Tobacco Use [...] any clubs o r organizations such as yazidi groups, unions, fraternal or athletic groups, or [...] documented as of this encounter Care Teams Entry Level Paralegal Relationship Specialty Start Date End Date Deep Pruitt APRN PCP - General 05/22/19 documented as of this encounter
--- OUTSIDE RECORDS SUMMARY | 2024-06-21 12:38 | XMS_ITS | Encounter Summary ---
Author Organization [facility] Address [address] [place] [address] Care Team Providers Care Car Usher Name Role Phone Deep Pruitt APRN Primary Care Provider [phone] Encounter Details Date Type Department Care Team ([facility] st Contact Info) Description 10/26/2020 Scanned Document [facility] [address] [place], [place] [phone] Deep Pruitt APRN [address] [place] [address] Social History Tobacco Use Types [...] Answer Date Recorded PHQ-2 Score 2 07/07/2020 [facility] of Occupat ional Health - [...] documented as of this encounter Care Teams Car Usher Relationship Specialty Start Date End Date Deep Pruitt APRN PCP - General 05/22/19 documented as of this encounter
--- OUTSIDE RECORDS SUMMARY | 2024-06-21 12:38 | XMS_ITS | Encounter Summary ---
Author Organization [facility] Address [address] [place] [address] Care Team Providers Care Engineering Laboratory Technician Name Role Phone Romelia Pruittian Niko LOPEZ Primary Care Provider Reason for Visit * Reason Comments Medication Refill Encounter Details Date Type Department Care Team ([facility] st Contact Info) Description 09/16/2021 Refill [facility] [address] [place] [phone] Carlos Eduardo Joyner MD [address] [place] [phone] Medication Refill Social History Tobacco Use [...] Recorded PHQ-2 Total Score 5 09/14/2021 [facility] of Occupat ional [...] documented as of this encounter Care Teams Engineering Laboratory Technician Relationship Specialty Start Date End Date Deep Pruitt APRN PCP - General 05/22/19 documented as of this encounter
--- OUTSIDE RECORDS SUMMARY | 2024-06-21 12:38 | XMS_ITS | Encounter Summary ---
Author Organization [facility] Address [address] [place] [address] Care Team Providers Care Integrity Consultant Name Role Phone Deep Pruitt APRN Primary Care Provider Reason for Visit * Reason Comments Medication Refill Encounter Details Date Type Department Care Team ([facility] st Contact Info) Description 11/11/2020 Refill [facility] [address] [place] [address] Deep Pruitt APRN [address] [place] [phone] Medication Refill Social History Tobacco Use [...] Recorded PHQ-2 Score 2 07/07/2020 [facility] of Occupat ional [facility] - Occupational Stress Questionnaire Answer [...] documented as of this encounter Care Teams Integrity Consultant Relationship Specialty Start Date End Date Deep Pruitt APRN PCP - General 05/22/19 documented as of this encounter
--- OUTSIDE RECORDS SUMMARY | 2024-06-21 12:38 | XMS_ITS | Encounter Summary ---
Author Organization [facility] Address [address] [place] [address] Care Team Providers Care Engagement Executive Name Role Phone Romelia Pruittian Niko LOPEZ Primary Care Provider +[phone] Encounter Details Date Type Department Care Team (Late st Contact Info) Description 09/08/2021 Scanned Document [facility] [address] [place] [address] External, Provider Social History Tobacco Use Types [...] Date Recorded PHQ-2 Total Score 2 09/08/2021 [facility] of Occupat ional Health - [...] documented as of this encounter Care Teams Engagement Executive Relationship Specialty Start Date End Date Deep Pruitt APRN PCP - General 05/22/19 documented as of this encounter
--- OUTSIDE RECORDS SUMMARY | 2024-06-21 12:38 | XMS_ITS | Encounter Summary ---
Author Organization [facility] Address [address] [place] [address] Care Team Providers Care Urgent Care Nurse Practitioner Name Role Phone Romelia Pruittian Niko LOPEZ Primary Care Provider +1-2 [phone] Encounter Details Date Type Department Care Team (Late st Contact Info) Description 09/06/2021 Scanned Document [facility] [address] [place] [address] External, Provider Social History Tobacco Use Types [...] Date Recorded PHQ-2 Total Score 2 09/08/2021 [facility] of Occupat ional Health - [...] documented as of this encounter Care Teams Urgent Care Nurse Practitioner Relationship Specialty Start Date End Date Deep Pruitt APRN PCP - General 05/22/19 documented as of this encounter
--- OUTSIDE RECORDS SUMMARY | 2024-06-21 12:38 | XMS_ITS | Encounter Summary ---
Author Organization [facility] Address [address] [place] [address] Care Team Providers Care Hand Spring Repairer Name Role Phone Deep Pruitt APRN Primary Care Provider Reason for Visit * Reason Comments Medication Refill Encounter Details Date Type Department Care Team ([facility] st Contact Info) Description 09/17/2020 Refill [facility] [address] [place] [address] Deep Pruitt APRN [address] [place] [phone] Medication Refill Social History Tobacco Use [...] Answer Date Recorded PHQ-2 Score 2 07/07/2020 [facility] of Occupat ional [facility] - Occupational Stress Questionnaire Answer Date [...] documented as of this encounter Care Teams Hand Spring Repairer Relationship Specialty Start Date End Date Deep Pruitt APRN PCP - General 05/22/19 documented as of this encounter
--- OUTSIDE RECORDS SUMMARY | 2024-06-21 12:40 | XMS_ITS | Encounter Summary ---
Author Organization [facility] [employer] and [facility] Address [address] [place] [phone] Care Team Providers Care Fishing Game Warden Name Role Phone Romelia Pruittian Niko LOPEZ Primary Care Provider Encounter Details Date Type Department Care Team (Latest Contact Info) Description 08/10/2021 Transcribed Orders [facility] [address] [place] [address] Taylor Malagon, GRADUATE NURSE [address] [place] [address] Stage 3a chronic kidney disease [...] Date Recorded PHQ-2 Total Score 4 07/13/2021 [facility] ional [facility] [...] - 4.5 mg/dL 08/10/2021 10:26 AM EDT [facility] DEPARTMENT OF LABORATORY MEDICINE Blood Venipuncture / Unknown 08/10/2021 9:40 AM EDT 08/10/2021 9:56 AM EDT Taylor Malagon APRN LAB BLOOD ORDERABLES Fauzia guzman Result [facility] DEPARTMENT OF LABORATORY MEDICINE [address] [place] [address] documented in this encounter Visit Diagnoses Diagnosis Stage 3a chronic kidney disease (CKD) (HC Code)- Primary documented in this encounter Additional Health Concerns Infection Onset Date Last Indicated Resolved Time COVID-19 09/29/2021 09/29/2021 10/19/2021 7:19 PM EDT Assessment Noted Time PHQ-9 Depression Total Score: 11 022 2:28 PM EST documented as of this encounter Care Teams Fishing Game Warden Relationship Specialty Start Date End Date Deep Pruitt APRN PCP - General 05/22/19 documented as of this encounter
--- OUTSIDE RECORDS SUMMARY | 2024-06-21 12:41 | XMS_ITS | Encounter Summary ---
Author Organization [facility] Address [address] [place] [address] Care Team Providers Care Sr. Manager Marketing Name Role Phone Deep Pruitt APRN Primary Care Provider [phone] Encounter Details Date Type Department Care Team ([facility] st Contact Info) Description 06/21/2022 Scanned Document [facility] [address] [place], [place] [phone] Deep Pruitt APRN [address] [place] [address] Social History Tobacco Use Types [...] Date Recorded PHQ-2 Total Score 2 02/17/2022 [facility] Questionnaire Answer Date [...] your living situation today? I have a [facility] place to live 05/19/2022 Sex and [...] documented as of this encounter Care Teams Sr. Manager Marketing Relationship Specialty Start Date End Date Deep Pruitt APRN PCP - General 05/22/19 documented as of this encounter
--- OUTSIDE RECORDS SUMMARY | 2024-06-21 12:41 | XMS_ITS | Encounter Summary ---
Author Organization [employer] Address [address] [facility] 7t [place] [address] Care Team Providers Care Cistern Room Working Supervisor Name Role Phone Katrin Santoyo MD Primary Care Pro vider Edison Vieira MD Unavailable [phone] Joe Devi MD Unavailable [phone] Reason for Visit * Reason Onset Date Comments Nurse Triage 05/30/2024 Encounter Details Date Type Department Care Team (Late st Contact Info) Description 05/30/2024 Telephone [facility] MEDICINE [address] [place], [place] [phone] Katrin Santoyo MD [address] [place], [place] [phone] Nurse Triage Social History Tobacco Use Types [...] from Covering Dr. Antonia Taylor MD [facility] Team [email or web address] hours ago (4:08 PM) AE Please see note from ronda Suarez RN. Pt should be seen at [facility] for med titration for HTN Call to [facility], offered appt today but pt declines states has conflicting appts. Unableto recheck BP during call as patient states just woke up. Pt agrees to seek [facility] tomorrow for eval. Reviewed parameters to call back if BP >140/90. * Telephone Encounter - Ronda Suarez RN - 05/30/2024 11:09 AM EST Call to [facility] for BP check, spoke with spouse states pt is asleep but [facility] did recheck and was a little lower. Spouse rechecked with this insurance writer on the line and BP reading of 160/95. Still elevated. Denies pt having any sx of CP, VILLANUEVA or dizziness. Pt unable to come in to [facility] today. Advised will forward to a [...] for suture removal at that time. Reviewed [facility] operating hours and that wait times [...] acuity questions The caller accepted this outcome. [phone] (Myrtle) documented in this encounter Plan of Treatment Upcoming Encounters Date Type Department Care Team (Late st Contact Info) Description 07/02/2024 11:00 AM EST Office Visit [facility] MEDICINE [address] [place] [address] documented as of this encounter Goals Goal [...] documented as of this encounter Care Teams Cistern Room Working Supervisor Relationship Specialty Start Date End Date Katrin Santoyo MD [address] [place] [address] PCP - General Internal Medicine 12/13/22 Edison Vieira MD [address] [place] [address] Pulmonary Disease 04/07/24 Joe Devi MD [address] 3rd [place] [address] Gastroenterology 04/07/24 Carito Roche DNP [address], [address] [place] [address] Nephrology 04/07/24 [employer] 04/11/24 documented as of this encounter
--- OUTSIDE RECORDS SUMMARY | 2024-06-21 12:41 | XMS_ITS | Encounter Summary ---
Author Organization [facility] [employer] [facility] and [facility] Address [address] [place] [phone] Care Team Providers Care Group Cio Name Role Phone Deep Pruitt APRN Primary Care Provider Encounter Details Date Type Department Care Team (Late st Contact Info) Description 08/05/[address] [facility] [address] [place] [address] Carolyn Marin MD [address] [place] [phone] Essential hypertension Social History Tobacco Use [...] Date Recorded PHQ-2 Total Score 4 07/13/2021 [facility] of Occupat ional Health - [...] as of this encounter Care Teams Group Cio Relationship Specialty Start Date End Date Deep Pruitt APRN PCP - General 05/22/19 documented as of this encounter
== END 2024-06-21 13:57 | disposition home or self-care (01) ==
PROVIDERS: PCP Student in an Organized Health Care Education/Training Program; Visit Provider Internal Medicine Nephrology
DX: N18.4 Chronic kidney disease, stage 4 (severe) (principal); E11.21 Type 2 diabetes mellitus with diabetic nephropathy; N25.81 Secondary hyperparathyroidism of renal origin; E55.9 Vitamin D deficiency, unspecified; I12.9 Hypertensive chronic kidney disease with stage 1 through stage 4 chronic kidney disease, or unspecified chronic kidney disease; R80.1 Persistent proteinuria, unspecified
CPT/HCPCS: 99214

== ENCOUNTER → 2024-06-21 11:54 | Outpatient (BNVA) | payer MEDICAID, SELFPAY | PROVIDERS: PCP Student in an Organized Health Care Education/Training Program; Visit Provider Internal Medicine Nephrology | DX: E11.22 Type 2 diabetes mellitus with diabetic chronic kidney disease (principal); E11.21 Type 2 diabetes mellitus with diabetic nephropathy; I12.9 Hypertensive chronic kidney disease with stage 1 through stage 4 chronic kidney disease, or unspecified chronic kidney disease; I69.359 Hemiplegia and hemiparesis following cerebral infarction affecting unspecified side; N18.4 Chronic kidney disease, stage 4 (severe); E78.5 Hyperlipidemia, unspecified; N25.81 Secondary hyperparathyroidism of renal origin; E55.9 Vitamin D deficiency, unspecified; R80.1 Persistent proteinuria, unspecified | CPT/HCPCS: 99212 ==

== ENCOUNTER 2024-06-24 09:49 | Outpatient (REF) | payer MEDICAID, SELFPAY | END 2024-06-24 09:50 | disposition home or self-care (01) | LOC: HO.US 09:49 | PROVIDERS: PCP Student in an Organized Health Care Education/Training Program; Visit Provider Surgery | DX: Z13.89 Encounter for screening for other disorder (principal) ==

== ENCOUNTER → 2024-07-11 12:39 | Outpatient (REF) | payer MEDICAID, SELFPAY ==
--- OUTSIDE RECORDS SUMMARY | 2024-07-11 15:11 | XMS_ITS | Encounter Summary ---
Author Organization [facility] Address [address] [place] [address] Care Team Providers Care Sample Grinder Name Role Phone Deep Pruitt APRN Primary Care Provider Reason for Visit * Reason Comments Other Encounter Details Date Type Department Care Team ([facility] Contact Info) Description 05/24/2022 Telephone [facility] [address] [place] [address] Deep Pruitt APRN [address] [place] [phone] Other Social History Tobacco Use Types [...] Total Score 2 02/17/2022 [facility] - Occupational Stress Questionnaire Answer Date [...] your living situation today? I have a [facility] place to live 05/19/2022 Sex and [...] AM EST Patient best call back number [phone]. Patient has an upcoming appt with his [...] documented as of this encounter Care Teams Sample Grinder Relationship Specialty Start Date End Date Deep Pruitt APRN PCP - General 05/22/19 documented as of this encounter
--- OUTSIDE RECORDS SUMMARY | 2024-07-11 15:11 | XMS_ITS | Encounter Summary ---
Author Organization [facility] Address [address] [place] [phone] Care Team Providers Care Formula Mixer Name Role Phone Deep Pruitt JOHN Primary Care Provider [phone] Reason for Visit * Reason Comments Medication Refill Encounter Details Date Type Department Care Team (Late st Contact Info) Description 07/20/2020 Refill [facility] Podiatry at [address] [place] [phone] Arben Fountain, NOLVIA [address] [place] [address] Medication Refill Social History Tobacco Use [...] documented as of this encounter Care Teams Formula Mixer Relationship Specialty Start Date End Date Deep Pruitt APRN PCP - General 05/22/19 documented as of this encounter
--- OUTSIDE RECORDS SUMMARY | 2024-07-11 15:11 | XMS_ITS | Encounter Summary ---
Author Organization [facility] Address [address] 7t [place] [address] Care Team Providers Care Academic Intern Name Role Phone Katrin Santoyo MD Primary Care Pro vider Edison Vieira MD Unavailable [phone] Joe Devi MD Unavailable [phone] Reason for Visit * Reason Comments Med Refill Encounter Details Date Type Department Care Team ([facility] st Contact Info) Description 02/11/2024 Refill [facility] [address] [place] [address] Moriah Herbert FNP [address] [place] [address] Chronic radicular lumbar pain Social History Tobacco [...] Care Team (Late st Contact Info) Description 07/16/2024 9:45 AM EDT Office [facility] [address] [place] [address] 08/22/2024 1:15 PM EDT Office [facility] [address] [place] [address] Katrin Santoyo MD [address] [place] [address] documented as of this encounter Goals Goal Patient Goal Type Associated Problems Recent Progress Patient-Stated? Author Blood Pressure < 140/90 Blood Pressure 143/84(2024 1:58 PM EST) No Piers-Gambl e, Eve, PharmD Hemoglobin A1c < 7 Result Component 12.5(03/27/20 3:40 PM EST) No Piers-Gambl e, Eve, PharmD documented as of this encounter Visit Diagnoses Diagnosis Chronic radicular lumbar pain documented in this encounter Additional Health Concerns Assessment Noted Time PHQ-9 Depression Total Score: 4 10/31/19 10:32 AM EDT documented as of this encounter Care Teams Academic Intern Relationship Specialty Start Date End Date Katrin Santoyo MD [address] [place] [address] PCP - General Internal Medicine 12/13/22 Edison Vieira MD [address] [place] [address] Pulmonary Disease 04/07/24 Joe Devi MD [address] [facility] 3rd [place] [address] Gastroenterology 04/07/24 Carito Roche DNP [address] [facility], [address] [place] [address] Nephrology 04/07/24 [facility] 1699 04/11/24 documented as of this encounter
--- OUTSIDE RECORDS SUMMARY | 2024-07-11 15:11 | XMS_ITS | Encounter Summary ---
Author Organization [employer] Address [address] [facility] [address] [facility] [address] 7t [place] [address] Care Team Providers Care Wrist Closer Name Role Phone Katrin Santoyo MD Primary Care Pro vider Edison Vieira MD Unavailable [phone] Joe Devi MD Unavailable [phone] Encounter Details Date Type Department Care Team (Late st Contact Info) Description 06/11/2024 Telephone [facility] MEDICINE [address] [place] [address] Emili Cordero RN Social History Tobacco Use [...] - 06/11/2024 2:44 PM EST TC via zimbabwean speaking staff member Mattie Valentino, chronic pain group rescheduled for 07/02/24 @ 11am. * Telephone Encounter - Emili Cordero RN - 06/11/2024 2:44 PM EST ----- Message from Moriah Herbert sent at 06/10/2024 10:02 PM EST ----- Hi! I noticed that Mr. 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 I think someone from call center may have scheduled him by accident. Would it be possible to reschedule for a PIE BOTTOMER group? Thanks documented in this encounter Plan of Treatment Upcoming Encounters Date Type Department Care Team (Late st Contact Info) Description 07/16/2024 9:45 AM EDT Office Visit [facility]IC[facility] [address] [place] [address] 08/22/2024 1:15 PM EDT Office Visit [facility]IC[facility] [address] [place] [address] Katrin Santoyo MD [address] [place] [address] documented as of this encounter Goals Goal Patient Goal Type Associated Problems Recent Progress Patient-Stated? Author Blood Pressure < 140/90 Blood Pressure 143/84(2024 1:58 PM EST) No Eve Guzman PharmD Hemoglobin A1c < 7 Result Component 12.5(03/27/20 3:40 PM EST) No Eve Guzman PharmD documented as of this encounter Visit Diagnoses Not on filedocumented in this encounter Additional Health Concerns Assessment Noted Time PHQ-9 Depression Total Score: 4 10/31/19 10:32 AM EDT documented as of this encounter Care Teams Wrist Closer Relationship Specialty Start Date End Date Katrin Santoyo MD [address] [place] [address] PCP - General Internal Medicine 12/13/22 Edison Vieira MD [address] [place] [address] Pulmonary Disease 04/07/24 Joe Devi MD [address] [place] [address] 3rd [place] [address] Gastroenterology 04/07/24 Carito Roche DNP [address] [facility], [address] [place] [address] Nephrology 04/07/24 [employer] 04/11/24 documented as of this encounter
--- OUTSIDE RECORDS SUMMARY | 2024-07-11 15:11 | XMS_ITS | Encounter Summary ---
Author Organization [facility] Address [address] [place] [address] Care Team Providers Care Time Buyer Name Role Phone Deep Pruitt APRN Primary Care Provider Reason for Visit * Reason Comments Medication Refill Encounter Details Date Type Department Care Team ([facility] st Contact Info) Description 07/10/2020 Refill [facility] [address] [place] [address] Deep Pruitt APRN [address] [place] [phone] Medication Refill Social History Tobacco Use [...] Answer Date Recorded PHQ-2 Score 2 07/07/2020 [facility] of Occupat ional [facility] - Occupational Stress Questionnaire Answer [...] documented as of this encounter Care Teams Time Buyer Relationship Specialty Start Date End Date Deep Pruitt APRN PCP - General 05/22/19 documented as of this encounter
--- OUTSIDE RECORDS SUMMARY | 2024-07-11 15:11 | XMS_ITS | Encounter Summary ---
Author Organization [facility] [employer] and [facility] Address [address] [place] [phone] Care Team Providers Care Service Or Work Dispatcher Chief Name Role Phone Deep Pruitt APRN Primary Care Provider Reason for Visit * Reason Comments DME Encounter Details Date Type Department Care Team ([facility] st Contact Info) Description 05/04/2022 Documentation Sleep Medicine Program at [address] [place] [phone] Jarad De Leon MD [address] [place] [phone] Social History Tobacco Use Types Packs/Day [...] documented as of this encounter Care Teams Service Or Work Dispatcher Chief Relationship Specialty Start Date End Date Deep Pruitt APRN PCP - General 05/22/19 documented as of this encounter
--- OUTSIDE RECORDS SUMMARY | 2024-07-11 15:11 | XMS_ITS | Encounter Summary ---
Author Organization [facility] Address [address] [place] [address] Care Team Providers Care Rescue Worker Name Role Phone Deep Pruitt APRN Primary Care Provider [phone] Reason for Visit * Reason Comments Medication Refill Encounter Details Date Type Department Care Team ([facility] st Contact Info) Description 07/29/2020 Refill [facility] TRANSITION [address] [place], [place] [phone] Deep Pruitt, JOHN [address] [place] [phone] Medication Refill Social History Tobacco Use [...] Answer Date Recorded PHQ-2 Score 2 07/07/2020 [facility] of Occupat ional [facility] - Occupational Stress Questionnaire Answer Date [...] documented as of this encounter Care Teams Rescue Worker Relationship Specialty Start Date End Date Deep Pruitt APRN PCP - General 05/22/19 documented as of this encounter
--- OUTSIDE RECORDS SUMMARY | 2024-07-11 15:11 | XMS_ITS | Encounter Summary ---
Author Organization [facility] Address [address] [place] [address] Care Team Providers Care Master Automotive Glass Technician Name Role Phone Deep Pruitt APRN Primary Care Provider Reason for Visit * Reason Comments Medication Refill Encounter Details Date Type Department Care Team ([facility] st Contact Info) Description 06/07/2022 Refill [facility] [address] [place], [place] [phone] Deep Pruitt APRN [address] [place] [address] Medication Refill Social History Tobacco [...] you attend chur ch or yazdanism services? More than 4 times per year [...] Date Recorded PHQ-2 Total Score 2 02/17/2022 [facility] of Occupat ional Health - Occupational Stress [...] your living situation today? [facility] have a [facility] place to live 05/19/2022 Sex and [...] documented as of this encounter Care Teams Master Automotive Glass Technician Relationship Specialty Start Date End Date Deep Pruitt APRN PCP - General 05/22/19 documented as of this encounter
--- OUTSIDE RECORDS SUMMARY | 2024-07-11 15:12 | XMS_ITS | Encounter Summary ---
Author Organization [facility] Address [address] [place] [address] Care Team Providers Care Wool Washer Feeder Name Role Phone SonalDeep Niko LOPEZ Primary Care Provider Reason for Visit * Reason Comments Medication Refill Encounter Details Date Type Department Care Team (Late st Contact Info) Description 07/03/2020 Refill [facility] Nutrition at [address] [address] Zena Hines PA [address] [place] [phone] Medication Refill Social History Tobacco Use [...] Answer Date Recorded PHQ-2 Score 2 07/07/2020 [facility] of Occupat ional [...] for Metformin received. Pt was engaging with [facility] and continues with PCP. Unclear [...] documented as of this encounter Care Teams Wool Washer Feeder Relationship Specialty Start Date End Date Deep Pruitt APRN PCP - General 05/22/19 documented as of this encounter
--- OUTSIDE RECORDS SUMMARY | 2024-07-11 15:12 | XMS_ITS | Encounter Summary ---
Author Organization [facility] Address [address] [place] [address] Care Team Providers Care Television Technician Name Role Phone Sonal Deep Niko LOPEZ Primary Care Provider [phone] Reason for Visit * Reason Comments Medication Refill Encounter Details Date Type Department Care Team ([facility] st Contact Info) Description 05/10/2021 Refill [facility] [address] [place] [phone] Aliya Pond, [address] [address] Medication Refill Social History Tobacco [...] Date Recorded PHQ-2 Total Score 0 04/21/2021 [facility] - Occupational Stress Questionnaire [...] as of this encounter Care Teams Television Technician Relationship Specialty Start Date End Date Deep Pruitt APRN PCP - General 05/22/19 documented as of this encounter
--- OUTSIDE RECORDS SUMMARY | 2024-07-11 15:12 | XMS_ITS | Encounter Summary ---
Author Organization [facility] Address [address] [place] [address] Care Team Providers Care Audio Experience Expert Name Role Phone Sonal Deep Niko LOPEZ Primary Care Provider [phone] Reason for Visit * Reason Comments Medication Refill Encounter Details Date Type Department Care Team ([facility] st Contact Info) Description 04/12/2021 Refill [facility] [address] [place] [phone] Aliya Pond, [address] [phone] Medication Refill Social History Tobacco [...] Date Recorded PHQ-2 Total Score 1 03/24/2021 [facility] - [...] as of this encounter Care Teams Audio Experience Expert Relationship Specialty Start Date End Date Deep Pruitt APRN PCP - General 05/22/19 documented as of this encounter
--- OUTSIDE RECORDS SUMMARY | 2024-07-11 15:12 | XMS_ITS | Encounter Summary ---
Author Organization [facility] Address [address] [place] [address] Care Team Providers Care Greenkeeper Name Role Phone Deep Pruitt APRN Primary Care Provider Reason for Visit * Reason Comments Medication Refill Encounter Details Date Type Department Care Team ([facility] st Contact Info) Description 06/19/2020 Refill [facility] [address] [place] [address] Deep Pruitt APRN [address] [place] [phone] Medication Refill Social History Tobacco Use [...] documented as of this encounter Care Teams Greenkeeper Relationship Specialty Start Date End Date Deep Pruitt APRN PCP - General 05/22/19 documented as of this encounter
--- OUTSIDE RECORDS SUMMARY | 2024-07-11 15:12 | XMS_ITS | Encounter Summary ---
Author Organization [facility] Address [address] [place] [address] Care Team Providers Care Stevedore Hold Name Role Phone Sonal Deep Niko LOPEZ Primary Care Provider [phone] Reason for Visit * Reason Comments Medication Refill Encounter Details Date Type Department Care Team ([facility] st Contact Info) Description 05/03/2021 Refill [facility] [address] [place] [phone] Aliya Pond, [address] [phone] Medication Refill Social History Tobacco [...] Date Recorded PHQ-2 Total Score 0 04/21/2021 [facility] - Occupational Stress Questionnaire [...] documented as of this encounter Care Teams Stevedore Hold Relationship Specialty Start Date End Date Deep Pruitt APRN PCP - General 05/22/19 documented as of this encounter
--- OUTSIDE RECORDS SUMMARY | 2024-07-11 15:12 | XMS_ITS | Encounter Summary ---
Author Organization [facility] Address [address] [place] [address] Care Team Providers Care Learning And Development Coordinator Name Role Phone Deep Pruitt Niko LOPEZ Primary Care Provider Reason for Visit * Reason Comments Medication Refill Encounter Details Date Type Department Care Team (Late st Contact Info) Description 05/06/[address] [phone] Arben Fountain, NOLVIA [address] [place] [address] Medication Refill Social History Tobacco [...] Answer Date Recorded PHQ-2 Score 0 03/13/2020 [facility] of Occupat ional Health - [...] as of this encounter Care Teams Learning And Development Coordinator Relationship Specialty Start Date End Date Deep Pruitt APRN PCP - General 05/22/19 documented as of this encounter
--- OUTSIDE RECORDS SUMMARY | 2024-07-11 15:12 | XMS_ITS | Encounter Summary ---
Author Organization [employer] Address [address] [facility] 7t [place] [address] Care Team Providers Care Sports Health Club Membership Advisors Name Role Phone Katrin Santoyo MD Primary Care Pro vider Edison Vieira MD Unavailable [phone] Joe Devi MD Unavailable [phone] Reason for Visit * Reason Onset Date Comments Durable Medical Equipment 11/08/2023 Encounter Details Date Type Department Care Team (Late st Contact Info) Description 11/08/2023 Telephone [facility] [address] [place], [place] [phone] Katrin Santoyo MD [address] [place], [place] [phone] Durable Medical Equipment Social History Tobacco Use [...] 11/10/2023 11:01 AM EDT Call placed to [employer] spoke to Zhen who was informed on 10/31/23 we faxed over RX with the qty on it. He reports that what they need is the letter of medical necessity not the Rx. He reports he will fax it to blue team at [phone] and once signed and faxed back it will be all set. Awaiting do cument. * Telephone Encounter - Mauricio Taylor - 11/08/2023 3:57 PM EDT Tc from Tanya at [facility] line calling to report the DME is missing the quantity and the description please sign and refax documented in this encounter Plan of Treatment Upcoming Encounters Date Type Department Care Team (Late st Contact Info) Description 07/16/2024 9:45 AM EDT Office Visit [facility] [address] [place] [address] 08/22/2024 1:15 PM EDT Office Visit [facility] [address] [place] [address] Katrin Santoyo MD [address] [place] [address] documented as of this encounter Goals Goal [...] documented as of this encounter Care Teams Sports Health Club Membership Advisors Relationship Specialty Start Date End Date Katrin Santoyo MD [address] [place] [address] PCP - General Internal Medicine 12/13/22 Edison Vieira MD [address] [place] [address] Pulmonary Disease 04/07/24 Joe Devi MD [address] [facility] 3rd [place] [address] Gastroenterology 04/07/24 Carito Roche DNP [address] [facility], [address] [place] [address] Nephrology 04/07/24 [employer] 04/11/24 documented as of this encounter
--- OUTSIDE RECORDS SUMMARY | 2024-07-11 15:12 | XMS_ITS | Encounter Summary ---
Author Organization [facility] Address [address] [place] [address] Care Team Providers Care Production Clerk Name Role Phone Deep Pruitt APRN Primary Care Provider Reason for Visit * Reason Comments Medication Refill Encounter Details Date Type Department Care Team ([facility] st Contact Info) Description 05/18/2020 Refill [facility] [address] [place] [address] Deep Pruitt APRN [address] [place] [phone] Medication Refill Social History Tobacco Use [...] Answer Date Recorded PHQ-2 Score 0 03/13/2020 [facility] of Occupat ional Health [...] as of this encounter Care Teams Production Clerk Relationship Specialty Start Date End Date Deep Pruitt APRN PCP - General 05/22/19 documented as of this encounter
--- OUTSIDE RECORDS SUMMARY | 2024-07-11 15:12 | XMS_ITS | Encounter Summary ---
Author Organization [facility] [facility] Address [address] [place] [address] Care Team Providers Care Transplant Immunologist Name Role Phone Deep Pruitt APRN Primary Care Provider Reason for Visit * Reason Comments Medication Refill Encounter Details Date Type Department Care Team ([facility] st Contact Info) Description 03/10/2021 Refill [facility] [address] [place] [address] Deep Pruitt APRN [address] [place] [phone] Medication Refill Social History Tobacco Use [...] documented as of this encounter Care Teams Transplant Immunologist Relationship Specialty Start Date End Date Deep Pruitt APRN PCP - General 05/22/19 documented as of this encounter
--- OUTSIDE RECORDS SUMMARY | 2024-07-11 15:12 | XMS_ITS | Encounter Summary ---
Author Organization [facility] Address [address] [place] [address] Care Team Providers Care Wood Machinist Apprentice Name Role Phone Deep Pruitt APRN Primary Care Provider Reason for Visit * Reason Comments Other Encounter Details Date Type Department Care Team ([facility] Contact Info) Description 05/19/2020 Telephone [facility] [address] [place] [address] Deep Pruitt APRN [address] [place] [address] Other Social History Tobacco Use [...] to his gout, call back number is [phone] documented in this encounter Plan of Treatment [...] as of this encounter Care Teams Wood Machinist Apprentice Relationship Specialty Start Date End Date Deep Pruitt APRN PCP - General 05/22/19 documented as of this encounter
--- OUTSIDE RECORDS SUMMARY | 2024-07-11 15:12 | XMS_ITS | Encounter Summary ---
Author Organization [facility] Address [address] [place] [address] Care Team Providers Care Milled Rubber Tender Name Role Phone Deep Pruitt APRN Primary Care Provider Reason for Visit * Reason Comments Medication Refill Encounter Details Date Type Department Care Team ([facility] st Contact Info) Description 02/25/2022 Refill [facility] [address] [place], [place] [phone] Deep Pruitt, JOHN [address] [place] [address] Medication Refill Social History Tobacco Use [...] Date Recorded PHQ-2 Total Score 2 02/17/2022 [facility] of Occupat ional [...] documented as of this encounter Care Teams Milled Rubber Tender Relationship Specialty Start Date End Date Deep Pruitt APRN PCP - General 05/22/19 documented as of this encounter
--- OUTSIDE RECORDS SUMMARY | 2024-07-11 15:12 | XMS_ITS | Encounter Summary ---
Author Organization [facility] Address [address] [place] [address] Care Team Providers Care Office Clinician Name Role Phone Deep Pruitt APRN Primary Care Provider Reason for Visit * Reason Comments Medication Refill Encounter Details Date Type Department Care Team ([facility] st Contact Info) Description 05/27/2020 Telephone [facility] [address] [place] [address] Deep Pruitt APRN [address] [place] [address] Medication Refill Social History Tobacco [...] Answer Date Recorded PHQ-2 Score 0 03/13/2020 [facility] of Occupat ional Health - Occupational [...] medications and request someone calls him at [phone] documented in this encounter Plan of Treatment [...] documented as of this encounter Care Teams Office Clinician Relationship Specialty Start Date End Date Deep Pruitt APRN PCP - General 05/22/19 documented as of this encounter
--- OUTSIDE RECORDS SUMMARY | 2024-07-11 15:12 | XMS_ITS | Encounter Summary ---
Author Organization [facility] Address [address] [place] [address] Care Team Providers Care Feed And Farm Management Adviser Name Role Phone Deep Pruitt APRN Primary Care Provider Reason for Visit * Reason Comments DME Encounter Details Date Type Department Care Team (Late st Contact Info) Description 04/11/2022 Documentation Sleep Medicine Program at [address] [place] [address] Jarad De Leon MD [address] [place] [phone] Social History Tobacco Use Types Packs/Day [...] Recorded PHQ-2 Total Score 2 02/17/2022 [facility] of Occupat ional Health - [...] documented as of this encounter Care Teams Feed And Farm Management Adviser Relationship Specialty Start Date End Date Deep Pruitt APRN PCP - General 05/22/19 documented as of this encounter
--- OUTSIDE RECORDS SUMMARY | 2024-07-11 15:12 | XMS_ITS | Encounter Summary ---
Author Organization [facility] Address [address] [place] [address] Care Team Providers Care Manager Transit Name Role Phone SonalDeep Niko LOPEZ Primary Care Provider Reason for Visit * Reason Comments Medication Refill Encounter Details Date Type Department Care Team (Late st Contact Info) Description 05/12/2020 Refill [facility] Nutrition at [address] [address] Zena Hines PA [address] [place] [address] Medication Refill Social History Tobacco [...] Answer Date Recorded PHQ-2 Score 0 03/13/2020 [facility] of Occupat ional Health - [...] Pike Please review pt no longer seeing [facility] Wellness Dept for DM management. [...] as of this encounter Care Teams Manager Transit Relationship Specialty Start Date End Date Deep Pruitt APRN PCP - General 05/22/19 documented as of this encounter
--- OUTSIDE RECORDS SUMMARY | 2024-07-11 15:12 | XMS_ITS | Encounter Summary ---
Author Organization [facility] [facility] [facility] Address [address] [place] [address] Care Team Providers Care Dials Inspector Name Role Phone Deep Pruitt JOHN Primary Care Provider Reason for Visit * Reason Comments Medication Refill Encounter Details Date Type Department Care Team (Late st Contact Info) Description 05/12/2021 Refill [facility] Podiatry at [address] [place] [phone] Arben Fountain, NOLVIA [address] [place] [address] Medication Refill Social History Tobacco [...] Date Recorded PHQ-2 Total Score 0 04/21/2021 [facility] - Occupational Stress Questionnaire [...] documented as of this encounter Care Teams Dials Inspector Relationship Specialty Start Date End Date Deep Pruitt APRN PCP - General 05/22/19 documented as of this encounter
--- OUTSIDE RECORDS SUMMARY | 2024-07-11 15:12 | XMS_ITS | Encounter Summary ---
Author Organization [facility] Address [address] [place] [address] Care Team Providers Care Impression Printer Name Role Phone Sonal Deep Niko LPOEZ Primary Care Provider [phone] Reason for Visit * Reason Comments Medication Refill Encounter Details Date Type Department Care Team ([facility] st Contact Info) Description 05/05/2021 Refill [facility] [address] [place] [phone] Aliya Pond, [address] [address] Medication Refill Social History Tobacco [...] Date Recorded PHQ-2 Total Score 0 04/21/2021 [facility] - Occupational Stress Questionnaire [...] documented as of this encounter Care Teams Impression Printer Relationship Specialty Start Date End Date Deep Pruitt APRN PCP - General 05/22/19 documented as of this encounter
--- OUTSIDE RECORDS SUMMARY | 2024-07-11 15:12 | XMS_ITS | Encounter Summary ---
Author Organization [employer] Address [address] [place] [address] Care Team Providers Care Preschool Assistant Principal Name Role Phone Deep Pruitt APRN Primary Care Provider Reason for Visit * Reason Comments Medication Refill Encounter Details Date Type Department Care Team ([facility] st Contact Info) Description 06/30/2021 Refill [facility] [address] [place], [place] [phone] Deep Pruitt APRN [address] [place] [address] Medication Refill Social History Tobacco [...] Date Recorded PHQ-2 Total Score 3 05/31/2021 [facility] of Occupat ional Health - [...]
--- OUTSIDE RECORDS SUMMARY | 2024-07-11 15:12 | XMS_ITS | Encounter Summary ---
Author Organization [facility] Address [address] [place] [address] Care Team Providers Care Carton Counter Feeder Name Role Phone Deep Pruitt APRN Primary Care Provider Encounter Details Date Type Department Care Team (Late st Contact Info) Description 06/11/2021 Documentation [facility] [address] [facility], 2nd floor [facility], [address] [place], [place] [phone] Isha Brown APRN [address] [place] [address] Social History Tobacco Use Types [...] Recorded PHQ-2 Total Score 3 05/31/2021 [facility] of [...] documented as of this encounter Care Teams Carton Counter Feeder Relationship Specialty Start Date End Date Deep Pruitt APRN PCP - General 05/22/19 documented as of this encounter
--- OUTSIDE RECORDS SUMMARY | 2024-07-11 15:12 | XMS_ITS | Encounter Summary ---
Author Organization [facility] Address [address] [place] [address] Care Team Providers Care Auto Electrical Technician Name Role Phone Deep Pruitt APRN Primary Care Provider [phone] Encounter Details Date Type Department Care Team ([facility] st Contact Info) Description 06/25/2021 Telephone [facility] [address] [place] [address] Deep Pruitt APRN [address] [place] [address] Social History Tobacco Use Types [...] Date Recorded PHQ-2 Total Score 3 05/31/2021 [facility] of Occupat ional [...] documented as of this encounter Care Teams Auto Electrical Technician Relationship Specialty Start Date End Date Deep Pruitt APRN PCP - General 05/22/19 documented as of this encounter
--- OUTSIDE RECORDS SUMMARY | 2024-07-11 15:12 | XMS_ITS | Encounter Summary ---
Author Organization [facility] Address [address] [place] [address] Care Team Providers Care Building Maintenance Repairer Name Role Phone Sonal Deep Niko LOPEZ Primary Care Provider [phone] Reason for Visit * Reason Comments Medication Refill Encounter Details Date Type Department Care Team ([facility] st Contact Info) Description 04/07/2021 Refill [facility] [address] [place] [phone] Aliya Pond, [address] [address] Medication Refill Social History Tobacco [...] Date Recorded PHQ-2 Total Score 1 03/24/2021 [facility] - Occupational Stress [...] as of this encounter Care Teams Building Maintenance Repairer Relationship Specialty Start Date End Date Deep Pruitt APRN PCP - General 05/22/19 documented as of this encounter
--- OUTSIDE RECORDS SUMMARY | 2024-07-11 15:12 | XMS_ITS | Encounter Summary ---
Author Organization [facility] [facility] Address [address] [place] [address] Care Team Providers Care Concrete Paver Name Role Phone Deep Pruitt APRN Primary Care Provider [phone] Reason for Visit * Reason Comments Medication Refill Encounter Details Date Type Department Care Team ([facility] st Contact Info) Description 06/19/2020 Refill [facility] [address] [place] [address] Deep Pruitt APRN [address] [place] [address] Medication Refill Social History Tobacco Use [...] as of this encounter Care Teams Concrete Paver Relationship Specialty Start Date End Date Deep Pruitt APRN PCP - General 05/22/19 documented as of this encounter
--- OUTSIDE RECORDS SUMMARY | 2024-07-11 15:12 | XMS_ITS | Encounter Summary ---
Author Organization [facility] Address [address] [place] [address] Care Team Providers Care Environmental Remediation Engineer Name Role Phone Deep Pruitt APRN Primary Care Provider Reason for Visit * Reason Comments Medication Refill Encounter Details Date Type Department Care Team ([facility] st Contact Info) Description 03/20/2021 Refill [facility] [address] [place] [address] Deep Pruitt APRN [address] [place] [address] Medication Refill Social History Tobacco Use [...] Date Recorded PHQ-2 Total Score 1 03/24/2021 [facility] of Occupat ional Health [...] as of this encounter Care Teams Environmental Remediation Engineer Relationship Specialty Start Date End Date Deep Pruitt APRN PCP - General 05/22/19 documented as of this encounter
--- OUTSIDE RECORDS SUMMARY | 2024-07-11 15:12 | XMS_ITS | Encounter Summary ---
Author Organization [facility] Address [address] [place] [address] Care Team Providers Care Operator Automated Process Name Role Phone Deep Pruitt APRN Primary Care Provider Encounter Details Date Type Department Care Team ([facility] st Contact Info) Description 06/13/2020 Scanned Document [facility] [address] [place], [place] [phone] Deep Pruitt APRN [address] [place] [address] Social History Tobacco Use Types [...] Answer Date Recorded PHQ-2 Score 0 03/13/2020 [facility] of Occupat ional Health - Occupational Stress [...] as of this encounter Care Teams Operator Automated Process Relationship Specialty Start Date End Date Deep Pruitt APRN PCP - General 05/22/19 documented as of this encounter
--- OUTSIDE RECORDS SUMMARY | 2024-07-11 15:12 | XMS_ITS | Encounter Summary ---
Author Organization [facility] Address [address] [place] [address] Care Team Providers Care Operating Table Assembler Name Role Phone Deep Pruitt APRN Primary Care Provider [phone] Reason for Visit * Reason Comments Medication Refill Encounter Details Date Type Department Care Team ([facility] st Contact Info) Description 05/13/2020 Refill [facility] [address] [place], [place] [address] Deep Pruitt APRN [address] [place] [address] Medication Refill Social History Tobacco [...] Answer Date Recorded PHQ-2 Score 0 03/13/2020 [facility] of Occupat ional Health - Occupational Stress [...] as of this encounter Care Teams Operating Table Assembler Relationship Specialty Start Date End Date Deep Pruitt APRN PCP - General 05/22/19 documented as of this encounter
--- OUTSIDE RECORDS SUMMARY | 2024-07-11 15:12 | XMS_ITS | Encounter Summary ---
Author Organization [facility] Address [address] [place] [address] Care Team Providers Care Cna Hha Name Role Phone Deep Pruitt JOHN Primary Care Provider Reason for Visit * Reason Comments Medication Refill Encounter Details Date Type Department Care Team (Late st Contact Info) Description 05/06/2021 Refill [facility] Podiatry at [address] [place] [phone] Arben Fountain, NOLVIA [address] [place] [address] Medication Refill Social History Tobacco Use [...] Score 0 04/21/2021 [facility] - Occupational Stress Questionnaire [...] documented as of this encounter Care Teams Cna Hha Relationship Specialty Start Date End Date Deep Pruitt APRN PCP - General 05/22/19 documented as of this encounter
--- OUTSIDE RECORDS SUMMARY | 2024-07-11 15:12 | XMS_ITS | Encounter Summary ---
Author Organization [facility] Address [address] [place] [address] Care Team Providers Care Planisher Name Role Phone Deep Pruitt APRN Primary Care Provider Reason for Visit * Reason Comments Medication Problem Encounter Details Date Type Department Care Team ([facility] st Contact Info) Description 12/21/2021 Refill [facility] [address] [place] [address] Deep Pruitt APRN [address] [place] [address] Medication Problem Social History Tobacco [...] Date Recorded PHQ-2 Total Score 4 12/20/2021 [facility] of Occupat ional [...] updated information the water pill. Call back [phone] * Telephone Encounter - Sarah Newman - 12/21/2021 1:05 PM EDT Best contact: [phone] Patient Sissy called and stated that she contacted [facility] on and they informed that the [...] documented as of this encounter Care Teams Planisher Relationship Specialty Start Date End Date Deep Pruitt APRN PCP - General 05/22/19 documented as of this encounter
--- OUTSIDE RECORDS SUMMARY | 2024-07-11 15:12 | XMS_ITS | Encounter Summary ---
Author Organization [facility] Address [address] [place] [address] Care Team Providers Care Tool Turret Lathe Set Up Operator Name Role Phone Deep Pruitt APRN Primary Care Provider Encounter Details Date Type Department Care Team (Late st Contact Info) Description 04/08/2021 Lab Requisition [facility] Specimens [address] [place] [address] Isha Brown APRN [address] [place] [address] Persons encountering health services in [...] Date Recorded PHQ-2 Total Score 1 03/24/2021 [facility] Health - Occupational [...] Date/Time Associated Diagnosis Comments BLOOD GAS, [facility] Routine 04/08/2021 12:44 PM EST documented in this encounter Results * (ABNORMAL) Blood gas, arterial () (04/08/2021 12:44 PM EST) pH Arterial 7.37 7.35 - 7.45 units 04/08/2021 12:54 PM [facility] MEDICINE pCO2, Arterial 49(H) 32 - 48 mmHg 04/08/20 21 12:54 PM [facility] pO2, Arterial 65(L) 83 - 108 mmHg 04/08/2021 12:54 PM [facility] MEDICINE O2 Sat, Arterial 89(L) 94 - 98 % 04/08/20 12:54 PM [facility] MEDICINE Calculated HCO3, Arterial 27.5 21.0 - 28.0 mmol/L 04/08/2021 12:54 PM [facility] MEDIC[facility] Base Excess, Arterial 2 -2 - 3 mmol/L 04/08/2021 12:54 PM [facility] MEDIC[facility] Patient Temperature 37.0 Celsius 04/08/2021 12:54 PM EST [facility] DEPARTMENT OF LABORATORY MEDICINE FIO2 21 % 04/08/2021 12:54 PM EST [facility] DEPARTMENT OF LABORATORY MEDICINE Blood, Arterial 04/08/2021 1 2:44 PM EST 04/08/2021 12:45 PM EST us Isha Brown DRIVE WORKER LAB BLOOD ORDERABL ES Final Result Performing Organization Address City/State/[facility] de Phone Number [facility] DEPARTMENT OF LABORATORY MEDICINE [address] [place] [address] documented in this encounter Visit Diagnoses Diagnosis [...] documented as of this encounter Care Teams Tool Turret Lathe Set Up Operator Relationship Specialty Start Date End Date Deep Pruitt APRN PCP - General 05/22/19 documented as of this encounter
--- OUTSIDE RECORDS SUMMARY | 2024-07-11 15:12 | XMS_ITS | Encounter Summary ---
Author Organization [facility] Address [address] [place] [address] Care Team Providers Care Database Administration Associate Name Role Phone Deep Pruitt APRN Primary Care Provider [phone] Reason for Visit * Reason Comments Medication Refill Encounter Details Date Type Department Care Team ([facility] st Contact Info) Description 03/19/2022 Refill [facility] TR[facility] [address] [place], [place] [phone] Deep Pruitt, JOHN [address] [place] [address] Medication Refill Social History Tobacco [...] documented as of this encounter Care Teams Database Administration Associate Relationship Specialty Start Date End Date Deep Pruitt APRN PCP - General 05/22/19 documented as of this encounter
--- OUTSIDE RECORDS SUMMARY | 2024-07-11 15:12 | XMS_ITS | Encounter Summary ---
Author Organization [facility] Address [address] [place] [address] Care Team Providers Care Visualization Developer Name Role Phone Deep Pruitt APRN Primary Care Provider Reason for Visit * Reason Comments Medication Refill Encounter Details Date Type Department Care Team ([facility] st Contact Info) Description 12/15/2021 Refill [facility] [address] [place], [place] [phone] Deep Pruitt APRN [address] [place] [address] Medication Refill Social History Tobacco [...] Date Recorded PHQ-2 Total Score 1 12/16/2021 [facility] of Occupat ional Health [...] documented as of this encounter Care Teams Visualization Developer Relationship Specialty Start Date End Date Deep Pruitt APRN PCP - General 05/22/19 documented as of this encounter
--- OUTSIDE RECORDS SUMMARY | 2024-07-11 15:12 | XMS_ITS | Encounter Summary ---
Author Organization [facility] Address [address] [place] [address] Care Team Providers Care Wrapping Checker Name Role Phone Sonal Deep Niko LOPEZ Primary Care Provider Reason for Visit * Reason Comments Medication Refill Encounter Details Date Type Department Care Team (Late st Contact Info) Description 04/07/2021 Refill [facility] Nutrition at [address] [address] Zena Hines PA [address] [place] [phone] Medication Refill Social History Tobacco Use [...] Date Recorded PHQ-2 Total Score 1 03/24/2021 [facility] of Occupat ional Health [...] seeing Zena Hines for DM management at [facility]. Thanks, Katrin documented in this encounter [...] documented as of this encounter Care Teams Wrapping Checker Relationship Specialty Start Date End Date Deep Pruitt APRN PCP - General 05/22/19 documented as of this encounter
--- OUTSIDE RECORDS SUMMARY | 2024-07-11 15:12 | XMS_ITS | Encounter Summary ---
Author Organization [facility] Address [address] [place] [address] Care Team Providers Care Supervisor Parking Lot Name Role Phone Deep Pruitt APRN Primary Care Provider Reason for Visit * Reason Comments Forms Encounter Details Date Type Department Care Team ([facility] Contact Info) Description 06/16/2020 Telephone [facility] [address] [place] [address] Deep Pruitt APRN [address] [place] [phone] Forms Social History Tobacco Use Types [...] PHQ-2 Score 0 03/13/2020 [facility] of Occupat [...] update on handicap forms for pt. Call [phone] documented in this encounter Plan of Treatment [...] as of this encounter Care Teams Supervisor Parking Lot Relationship Specialty Start Date End Date Deep Pruitt APRN PCP - General 05/22/19 documented as of this encounter
--- OUTSIDE RECORDS SUMMARY | 2024-07-11 15:12 | XMS_ITS | Encounter Summary ---
Author Organization [facility] Address [address] [place] [address] Care Team Providers Care Supervisor Matrix Name Role Phone Romelia Pruittian Niko LOPEZ Primary Care Provider [phone] Encounter Details Date Type Department Care Team (Late st Contact Info) Description 03/18/2021 Scanned Document [facility] [address] [place] [address] External, Provider Social History Tobacco Use Types [...] Date Recorded PHQ-2 Total Score 2 03/10/2021 [facility] of [...] as of this encounter Care Teams Supervisor Matrix Relationship Specialty Start Date End Date Deep Pruitt APRN PCP - General 05/22/19 documented as of this encounter
--- OUTSIDE RECORDS SUMMARY | 2024-07-11 15:12 | XMS_ITS | Encounter Summary ---
Author Organization [facility] Address [address] [place] [address] Care Team Providers Care Volunteer Manager Name Role Phone Deep Pruitt APRN Primary Care Provider Reason for Visit * Reason Comments Medication Refill Encounter Details Date Type Department Care Team (Late st Contact Info) Description 06/19/2020 Refill [facility] [address] [place], [place] [address] Janel Cummins APRN [address] [place] [phone] Medication Refill Social History Tobacco Use Types [...] Answer Date Recorded PHQ-2 Score 0 03/13/2020 [facility] of [...] documented as of this encounter Care Teams Volunteer Manager Relationship Specialty Start Date End Date Deep Pruitt APRN PCP - General 05/22/19 documented as of this encounter
--- OUTSIDE RECORDS SUMMARY | 2024-07-11 15:13 | XMS_ITS | Encounter Summary ---
Author Organization [facility] Address [address] [place] [address] Care Team Providers Care Dispatcher Service Or Work Name Role Phone Deep Pruitt APRN Primary Care Provider Reason for Visit * Reason Comments Medication Refill Encounter Details Date Type Department Care Team ([facility] st Contact Info) Description 12/18/2021 Refill [facility] [address] [place], [place] [phone] Deep Pruitt APRN [address] [place] [address] Medication Refill Social History Tobacco [...] documented as of this encounter Care Teams Dispatcher Service Or Work Relationship Specialty Start Date End Date Deep Pruitt APRN PCP - General 05/22/19 documented as of this encounter
--- OUTSIDE RECORDS SUMMARY | 2024-07-11 15:13 | XMS_ITS | Encounter Summary ---
Author Organization [facility] [employer] [facility] and [facility] Address [address] [place] [address] Care Team Providers Care Photo Print Specialist Name Role Phone Deep Pruitt APRN Primary Care Provider [phone] Reason for Visit * Reason Onset Date Comments Medication Refill 11/19/2021 Encounter Details Date Type Department Care Team (Late st Contact Info) Description 11/19/2021 Refill [facility] [address] [facility] [address] [facility] 2nd [place] [address] Yue Dominguez APRN [address] [place] [phone] Medication Refill Social History Tobacco Use Types [...] documented as of this encounter Care Teams Photo Print Specialist Relationship Specialty Start Date End Date Deep Pruitt APRN PCP - General 05/22/19 documented as of this encounter
--- OUTSIDE RECORDS SUMMARY | 2024-07-11 15:13 | XMS_ITS | Encounter Summary ---
Author Organization [facility] Address [address] [place] [address] Care Team Providers Care Financial Operations Analyst Name Role Phone Romelia Pruittian Niko LOPEZ Primary Care Provider Encounter Details Date Type Department Care Team (Late st Contact Info) Description 11/30/2021 Scanned Document [facility] [address] [place] [address] External, Provider Social History Tobacco Use Types [...] Date Recorded PHQ-2 Total Score 0 11/17/2021 [facility] of Occupat ional Health [...] documented as of this encounter Care Teams Financial Operations Analyst Relationship Specialty Start Date End Date Deep Pruitt APRN PCP - General 05/22/19 documented as of this encounter
--- OUTSIDE RECORDS SUMMARY | 2024-07-11 15:13 | XMS_ITS | Encounter Summary ---
Author Organization [facility] Address [address] [place] [address] Care Team Providers Care Negative Cutter Name Role Phone Deep Pruitt APRN Primary Care Provider Reason for Visit * Reason Comments Medication Refill Encounter Details Date Type Department Care Team ([facility] st Contact Info) Description 03/08/2021 Refill [facility] [address] [place], [place] [phone] Deep Pruitt APRN [address] [place] [address] Medication Refill Social History Tobacco [...] Date Recorded PHQ-2 Total Score 2 03/10/2021 [facility] of Occupat ional Health [...] as of this encounter Care Teams Negative Cutter Relationship Specialty Start Date End Date Deep Pruitt APRN PCP - General 05/22/19 documented as of this encounter
--- OUTSIDE RECORDS SUMMARY | 2024-07-11 15:13 | XMS_ITS | Encounter Summary ---
Author Organization [facility] Address [address] [place] [address] Care Team Providers Care Heel Buffer Name Role Phone Deep Pruitt APRN Primary Care Provider Reason for Visit * Reason Comments Advice Only Other Encounter Details Date Type Department Care Team ([facility] Contact Info) Description 12/02/2021 Telephone [facility] [address] [place] [address] Deep Pruitt APRN [address] [place] [address] Advice Only; Other Social History [...] any clubs o r organizations such as restoration groups, unions, fraternal or athletic groups, or [...] Date Recorded PHQ-2 Total Score 0 11/17/2021 [facility] of Occupat ional Health - [...] Mira Rios - 12/02/2021 1:32 PM EDT [facility] - [address] calling in regards to med refill request for Carvedilol 25 mg and Gabapentin medications. Call back [phone] * Telephone Encounter - Leah Madera LPN - 12/02/2021 1:21 PM EDT Patient at * Telephone Encounter - Usha Kline - 12/02/2021 12:18 PM EDT Pt is having a lot of stomach pain on the left side and would like to speak with PCP or nurse. Requesting a call back. [facility] callback number [phone] Micronesian speaking documented in this encounter Plan of [...] as of this encounter Care Teams Heel Buffer Relationship Specialty Start Date End Date Deep Pruitt APRN PCP - General 05/22/19 documented as of this encounter
--- OUTSIDE RECORDS SUMMARY | 2024-07-11 15:13 | XMS_ITS | Encounter Summary ---
Author Organization [facility] Address [address] [place] [address] Care Team Providers Care Savings Teller Name Role Phone Deep Pruitt JOHN Primary Care Provider [phone] Reason for Visit * Reason Comments Medication Refill Encounter Details Date Type Department Care Team (Late st Contact Info) Description 12/03/2021 Refill [facility] Podiatry at [address] [place] [phone] Arben Fountain, NOLVIA [address] [place] [address] Medication Refill Social History Tobacco [...] Date Recorded PHQ-2 Total Score 0 11/17/2021 [facility] - [facility]ational Stress Questionnaire Answer Date [...] documented as of this encounter Care Teams Savings Teller Relationship Specialty Start Date End Date Deep Pruitt APRN PCP - General 05/22/19 documented as of this encounter
--- OUTSIDE RECORDS SUMMARY | 2024-07-11 15:13 | XMS_ITS | Encounter Summary ---
Author Organization [facility] Address [address] [place] [address] Care Team Providers Care Aircraft Design Engineer Name Role Phone Romelia Pruittian Niko LOPEZ Primary Care Provider Reason for Visit * Reason Onset Date Comments Medication Refill 11/19/2021 Encounter Details Date Type Department Care Team (Late st Contact Info) Description 11/19/2021 Refill [facility] [address] [place] [phone] Carlos Eduardo Joyner MD [address] [place] [phone] Medication Refill Social History Tobacco Use [...] Date Recorded PHQ-2 Total Score 0 11/17/2021 [facility] [...] as of this encounter Care Teams Aircraft Design Engineer Relationship Specialty Start Date End Date Deep Pruitt APRN PCP - General 05/22/19 documented as of this encounter
--- OUTSIDE RECORDS SUMMARY | 2024-07-11 15:13 | XMS_ITS | Encounter Summary ---
Author Organization [facility] Address [address] [place] [address] Care Team Providers Care Push Bench Operator Helper Name Role Phone Romelia Pruittian Niko LOPEZ Primary Care Provider Reason for Visit * Reason Onset Date Comments Medication Refill 11/10/2021 Encounter Details Date Type Department Care Team (Late st Contact Info) Description 11/10/2021 Refill [facility] [address] [facility] [address] [place] [phone] Anahi Rossi, JOHN [address] [place] [phone] Medication Refill Social History Tobacco Use [...] 10/12/2021 [facility] of Occupat ional Health [...] documented as of this encounter Care Teams Push Bench Operator Helper Relationship Specialty Start Date End Date Deep Pruitt APRN PCP - General 05/22/19 documented as of this encounter
--- OUTSIDE RECORDS SUMMARY | 2024-07-11 15:14 | XMS_ITS | Encounter Summary ---
Author Organization [facility] and [facility] Address [address] [place] [address] Care Team Providers Care Auto Polisher Name Role Phone Deep Pruitt APRN Primary Care Provider Reason for Visit * Reason Onset Date Comments Medication Refill 11/10/2021 Encounter Details Date Type Department Care Team (Late st Contact Info) Description 11/10/2021 Refill [facility] at [address] [place] [address] Anahi Rossi, JOHN [address] [place] [address] Medication Refill Social History Tobacco [...] Date Recorded PHQ-2 Total Score 0 10/12/2021 [facility] of Occupat ional [facility] - Occupational Stress Questionnaire Answer Date [...] as of this encounter Care Teams Auto Polisher Relationship Specialty Start Date End Date Deep Pruitt APRN PCP - General 05/22/19 documented as of this encounter
--- OUTSIDE RECORDS SUMMARY | 2024-07-11 15:14 | XMS_ITS | Encounter Summary ---
Author Organization [facility] Address [address] [place] [address] Care Team Providers Care Education And Outreach Coordinator Name Role Phone PukwanaDeep medina Niko LOPEZ Primary Care Provider [phone] Reason for Visit * Reason Onset Date Comments Medication Refill 11/19/2021 Encounter Details Date Type Department Care Team (Late st Contact Info) Description 11/19/2021 Refill [facility] [address] [place] [address] Audelia Childs, DDS [address] [place] [address] Medication Refill Social History Tobacco [...] Date Recorded PHQ-2 Total Score 0 11/17/2021 [facility] of Occupat ional Health - Occupational Stress [...] documented as of this encounter Care Teams Education And Outreach Coordinator Relationship Specialty Start Date End Date Deep Pruitt APRN PCP - General 05/22/19 documented as of this encounter
--- OUTSIDE RECORDS SUMMARY | 2024-07-11 15:14 | XMS_ITS | Encounter Summary ---
Author Organization [facility] Address [address] [place] [address] Care Team Providers Care Finance Attorney Name Role Phone Deep Pruitt APRN Primary Care Provider Reason for Visit * Reason Onset Date Comments Medication Refill 11/10/2021 Encounter Details Date Type Department Care Team (Late st Contact Info) Description 11/10/2021 Refill [facility] [address] [facility] [address] [facility] 2nd [place] [address] Taylor Malagon, [facility] [address] [place] [phone] Medication Refill Social History Tobacco Use Types [...] [facility] of Occupat ional [facility] - Occupational Stress Questionnaire Answer Date [...] today, but unknown at home. Defer to [facility] pharmacy team for antihypertensive management. Current [...] documented as of this encounter Care Teams Finance Attorney Relationship Specialty Start Date End Date Deep Pruitt APRN PCP - General 05/22/19 documented as of this encounter
--- OUTSIDE RECORDS SUMMARY | 2024-07-11 15:14 | XMS_ITS | Encounter Summary ---
Author Organization [facility] [employer] [facility] and [facility] Address [address] [place] [phone] Care Team Providers Care Motor And Generator Brush Cutter Name Role Phone Deep Pruitt APRN Primary Care Provider Reason for Visit * Reason Onset Date Comments Medication Refill 11/19/2021 Encounter Details Date Type Department Care Team (Late st Contact Info) Description 11/19/2021 Refill [facility] [address] [facility] 2nd [place] [address] Yue Dominguez APRN [address] [place] [phone] Medication Refill Social History Tobacco Use Types [...] Date Recorded PHQ-2 Total Score 0 11/17/2021 [facility] of Occupat ional Health [...] of this encounter Care Teams Motor And Generator Brush Cutter Relationship Specialty Start Date End Date Deep Pruitt APRN PCP - General 05/22/19 documented as of this encounter
--- OUTSIDE RECORDS SUMMARY | 2024-07-11 15:14 | XMS_ITS | Encounter Summary ---
Author Organization [facility] [employer] [facility] and [facility] Address [address] [place] [phone] Care Team Providers Care Synthetic Chemist Name Role Phone Deep Pruitt APRN Primary Care Provider [phone] Reason for Visit * Reason Onset Date Comments Medication Refill 11/10/2021 Encounter Details Date Type Department Care Team (Late st Contact Info) Description 11/10/2021 Refill [facility] [address] [facility] [address] [facility] 2nd [place] [address] Taylor Malagon, [facility] [address] [place] [phone] Medication Refill Social History Tobacco Use Types [...] Date Recorded PHQ-2 Total Score 0 10/12/2021 [facility] of Occupat ional [facility] [...] documented as of this encounter Care Teams Synthetic Chemist Relationship Specialty Start Date End Date Deep Pruitt APRN PCP - General 05/22/19 documented as of this encounter
--- OUTSIDE RECORDS SUMMARY | 2024-07-11 15:14 | XMS_ITS | Encounter Summary ---
Author Organization [facility] Address [address] [place] [address] Care Team Providers Care Amphibian Crewmember Name Role Phone Deep Pruitt APRN Primary Care Provider Reason for Visit * Reason Comments Other Advice Only Encounter Details Date Type Department Care Team ([facility] Contact Info) Description 10/20/2021 Telephone [facility] [address] [place] [address] Deep Pruitt APRN [address] [place] [address] Other; Advice Only Social History [...] legs have not stops hurting. Contact number [phone] documented in this encounter Plan of Treatment Not on file documented as of this encounter Visit Diagnoses Not on filedocumented in this encounter Additional Health Concerns Assessment Noted Time PHQ-9 Depression Total Score: 0 10/13/19 22 2:23 PM EDT documented as of this encounter Care Teams Amphibian Crewmember Relationship Specialty Start Date End Date Deep Pruitt APRN PCP - General 05/22/19 documented as of this encounter
--- OUTSIDE RECORDS SUMMARY | 2024-07-11 15:14 | XMS_ITS | Encounter Summary ---
Author Organization [facility] Address [address] [place] [address] Care Team Providers Care Crawler Tractor Operator Name Role Phone Deep Pruitt JOHN Primary Care Provider Encounter Details Date Type Department Care Team (Late st Contact Info) Description 01/17/2019 Scanned Document [facility] [address] [place], [place] [address] External, Provider Social History Tobacco Use Types [...] documented as of this encounter Care Teams Crawler Tractor Operator Relationship Specialty Start Date End Date Deep Pruitt APRN PCP - General 05/22/19 documented as of this encounter
--- OUTSIDE RECORDS SUMMARY | 2024-07-11 15:14 | XMS_ITS | Encounter Summary ---
Author Organization [facility] Address [address] [place] [address] Care Team Providers Care Director University Name Role Phone Deep Pruitt APRN Primary Care Provider Encounter Details Date Type Department Care Team ([facility] st Contact Info) Description 10/27/2021 Scanned Document [facility] [address] [place], [place] [phone] Deep Pruitt APRN [address] [place] [address] Social History Tobacco Use Types [...] as of this encounter Care Teams Director University Relationship Specialty Start Date End Date Deep Pruitt APRN PCP - General 05/22/19 documented as of this encounter
--- OUTSIDE RECORDS SUMMARY | 2024-07-11 15:15 | XMS_ITS | Clinical Summary ---
Author Organization [employer] Address [address] [facility] 7[address] [place] [address] Care Team Providers Care Music Theory Teacher Name Role Phone Katrin Santoyo MD Primary Care Pro vider Edison Vieira MD Unavailable [phone] Joe Devi MD Unavailable [phone] Allergies Active Allergy Reactions Criticality Noted [...] Continuous Blood Gluc Sensor (Dexcom G7 Sensor) [facility] 023 Active DULoxetine (Cymbalta) [address] [...] THE EVENING Active Blood Glucose Monitoring Suppl (Studio WhaleStyle Weiser Lite) w/Device kitIndications: Type 2 diabetes mellitus with diabetic nephropathy, with long-term current use of insulin ([facility]) Use to test blood sugar [...] as needed for pain. 45 g 3 024 Active glucose 4 g chewable tablet Chew 4 tablets (16 g) if needed for low blood sugar. 50 tablet 2 024 2024 Active omega-3 acid ethyl esters (Lovaza) 1 g capsule Take 2 capsules (2 g) by mouth 2 times daily. 120 capsule 11 Active amLODIPine (Norvasc) 5 MG tablet TAKE 1 TABLET BY MOUTH EVERY DAY 90 tablet 1 Active Alpha-Lipoic Acid 600 MG capsule TAKE 1 CAPSULE BY MOUTH EVERY DAY 30 capsule 5 024 Active Ketotifen Fumarate 0.035 % solution PLACE 1 DROP INTO THE AFFECTED EYE(S) TWICE DAILY NEEDED FOR ALLERGIES 5 mL 1 Active ammonium lactate (Lac-Hydrin) 12 % lotion Apply 1 Application. topically Once per day. To feet Active ergocalciferol (Vitamin D-2) 1.25 MG (91692 UT) capsule Take 1 capsule by mouth. Every Monday and Active lidocaine (Lidoderm) 5 % patch Apply 1 patch topically Once per day. 12 hours on and 12 hours off Active SSD 1 % cream Apply 1 Application. topically Once per day. Active FreeStyle lancetsIndicati ons:Type 2 diabetes mellitus with diabetic nephropathy, with long-term current use of insulin ([facility]) 1 each by Other route before breakfast, before lunch, before evening meal, and at bedtime. Use bid, dx type 2 diabetes 100 each Active Alcohol Swabs (B-D SINGLE USE SWABS REGULAR) pads Apply 1 Units topically 4 times daily. 100 each 11 Active B-D UF III MINI PEN NEEDLES 31G X 5 MM misc Use as instructed 100 each Active FREESTYLE [...] tabletIndicatio ns:Acute kidney injury superimposed on CKD ([facility]) ([facility]),Prima ry hypertension Take 1 tablet (40 mg) by mouth Once per day. 90 tablet 024 2024 Active Jardiance 10 MG Take 1 tablet [...] FOR UP TO 28 DAYS 84 tablet 025 Active Advair HFA 230-21 MCG/ACT inhalerIndicati ons:Moderate persistent asthma without complication INHALE 2 PUFFS BY MOUTH TWICE DAILY IN THE MORNING AND AT BEDTIME, RINSE MOUTH AFTER USING. 12 g 3 025 Active Spiriva Respimat 1.25 MCG/ACT inhalerIndicati ons:Moderate persistent asthma without complication INHALE 2 PUFFS BY MOUTH EVERY DAY IN THE MORNING 4 g 3 025 Active Aspirin Low Dose 81 MG chewable tablet CHEW 1 TABLET BY MOUTH ONCE DAILY EVERY MORNING 90 tablet 1 025 Active ezetimibe (Zetia) 10 MG tablet TAKE 1 TABLET BY MOUTH EVERY DAY IN THE MORNING 90 tablet 1 025 Active Dextromethorpha n-guaiFENesin (Mucinex DM) 30-600 MG tablet sustained-relea se 12 hour Use 1 tab TID 28 tablet 025 Active Nebulizers [facility] Use nebulizer as instructed 1 each 025 Active Respiratory Therapy Supplies (Nebulizer/Tubi ng/Mouthpiece) kit To be used with Nebulizer 1 kit 025 Active febuxostat (Uloric) 40 MG tablet TAKE 1 TABLET BY MOUTH ONCE DAILY 90 tablet 025 Active Diclofenac Sodium 1 % gelIndications: Chronic radicular lumbar pain APPLY A THIN LAYER (2 GRAMS) TOPICALLY TO AFFECTED AREA(S) THREE TIMES DAILY NEEDED FOR PAIN 100 g 1 025 Active atorvastatin (Lipitor) 80 MG tablet TAKE 1 TABLET BY MOUTH EVERY DAY 90 tablet 1 025 Active predniSONE (Deltasone) 10 MG tabletIndicatio ns:Acute gout of left foot, unspecified cause Take 1 tablet (10 mg) by mouth 5 (five) times a day for 2 days, THEN 1 tablet (10 mg) 4 times daily for 2 days, THEN 1 tablet (10 mg) 3 times daily for 2 days, THEN 1 tablet (10 mg) 2 times daily for 2 days, THEN 1 tablet (10 mg) Once per day for 2 days. 30 tablet 025 2024 Active doxycycline (Vibra-Tabs) 100 MG tabletIndicatio ns:Burn Take 1 tablet (100 mg) by mouth 2 times daily for 7 days. Take with a full glass of water and do not lie down for at least 30 minutes after. 14 tablet 025 2024 Active Advair HFA 230-21 MCG/ACT inhalerIndicati ons:Moderate persistent asthma without complication INHALE 2 PUFFS TWICE DAILY IN THE MORNING AND AT BEDTIME RINSE MOUTH AFTER USING. 12 g 3 024 2024 Discontinued Spiriva Respimat 1.25 MCG/ACT inhalerIndicati ons:Moderate persistent asthma without complication INHALE 2 PUFFS BY MOUTH EVERY MORNING 4 g 3 024 2024 Discontinued ezetimibe (Zetia) 10 MG tablet TAKE 1 TABLET BY MOUTH EVERY DAY IN THE MORNING 90 tablet 1 024 2024 Discontinued atorvastatin (Lipitor) 80 MG tablet TAKE 1 TABLET BY MOUTH EVERY DAY 90 tablet 1 024 2024 Discontinued Aspirin Low Dose 81 MG chewable tablet CHEW 1 TABLET BY MOUTH EVERY MORNING 90 tablet 1 024 2024 Discontinued febuxostat (Uloric) 40 MG tablet TAKE 1 TABLET BY MOUTH ONCE DAILY 90 tablet 024 2024 Discontinued naproxen (Naprosyn) 500 MG tablet Take 500 mg by mouth 2 times daily. 024 2024 Discontinued Diclofenac Sodium 1 % gelIndications: Chronic radicular lumbar pain APPLY A THIN LAYER (2 GRAMS) TOPICALLY TO AFFECTED AREA(S) THREE TIMES DAILY NEEDED FOR PAIN 100 g 1 025 2024 Discontinued(R britt (will not trigger notification to Pharmacy)) oseltamivir (Tamiflu) 75 MG capsule Take 1 capsule (75 mg) by mouth 2 times daily for 5 days. 10 capsule 025 2024 Respiratory Therapy Supplies (Nebulizer Mask Adult) misc 1 each 3 times daily for 1 day. 1 each 2 025 2024 Hospital, Clinic, or Other Facility Administered Medication Ordered Dose Route Frequency Start Date End Date Status ipratropium-albutero l (Duo-Neb) 0.5-2.5 mg/3 mL nebulizer solution 3 mgIndications:Acute bronchitis, unspecified organism 3 mg NEBULIZATION Once 2024 2024 En ded Active Problems Problem Noted Date Diagnosed Date Lipoma 07/10/2024 Assessment & Plan (07/10/2024 2:47 PM EST): I refer patient to surgery Acute gout of foot 07/10/2024 Assessment & Plan (07/10/2024 2:46 PM EST): I prescribed for patient prednisone taper then he can restart his maintenance medication for gout Burn 07/10/2024 Assessment & Plan (07/10/2024 2:47 PM EST): I will cover patient with antibiotic doxycycline 100 mg twice a day for 1 week ED precautions were reviewed I let him know if erythema pain gets worse to report back immediately Long-term current use of opiate analgesic 2023 Overview (04/03/2024): Medication: Tramadol 50mg Q8H PRN Indication: chronic radicular lumbar pain Last [employer] Agreement: 04/02/24 Chronic respiratory failure with hypoxia 024 On home oxygen therapy 02/02/2024 Assessment & Plan (04/07/2024 2:01 PM EST): - Continues on 2L oxygen - Followed by [facility] Pulm - Dr. Vieira Chest pressure 11/14/2023 [...] lesions. Secondary dental caries 10/23/2023 Fractured dental tenriism without loss of mat erial 10/23/2023 Alkaline phosphatase elevation 07/27/2023 Diabetes mellitus, labile 06/29/2023 Adrenal adenoma, right 05/18/2023 Type 2 diabetes mellitus wit h stage 3 chronic kidney disease, with long-term current use of insulin 01/23/2023 Assessment & Plan (06/22/2023 12:26 AM EST): -A1C 11.2 -Check blood sugar 1-2 hours after every meal. -Continue use of glucose gel PRN. -Follow up with [facility] 2023. Chronic radicular lumbar pain 01/23/2023 [...] of multiple topical analgesics after discussion with [facility] Pharmacist - meds sent to pharmacy [...] PRN Primary hypertension 12/09/2022 Assessment & Plan (07/10/2024 2:46 PM EST): Blood pressure today is slightly elevated, patient did took his medication today, he tells me he is in pain so most likely blood pressure is a little bit elevated due to pain I advised low-sodium diet to take all medications as prescribed without missing any dose and follow-up with PCP Assessment & Plan (04/07/2024 2:09 PM EST): [...] 2022, f/u appt 01/2023 Dental: Refer pt [facility] on 12/13/22 Moderate persistent asthma 11/07/2022 Overview (11/07/2022): -The Pt saw Pulmonology in [place] 9178305/21/2021 -stable with the use of Advair and [...] Will focus on improving diabetic control Discuss phlebotomy tech referral at next visit F/u 1 month [...] (04/07/2024 2:05 PM EST): - Following with [facility] - CASSIDY Roche - Plan [...] disordered breathing. RECOMMENDATIONS / PLAN : -Current [employer] recommendations for treatment of [...] S on 17/10 cm. - Following with [facility] Pulmonology - Dr. Vieira - Encouraged to follow up with specialist regarding DME order and new sleep study PRN Chronic post-traumatic stress disorder (PTSD) Need for home health care 01/01/2019 Overview (11/07/2022): Pt is still in the process of establishing a Visiting Nurse for home care to help manage his multiple medications Hyperlipidemia associated wi th type 2 diabetes mellitus ([facility]) 12/10/2018 Overview (11/07/2022): - LDL 90 01/25/2021 [...] told him that it is not a tank terminal gauger med. He will fu w PCP next [...] told him that it is not a shelter med. He will fu w PCP next week. Use heat to affected area Diabetes mellitus with diabetic nephropathy 12/09/2022 12/13/2022 History of colonoscopy 12/09/202201/23 Overview (12/09/2022): information and pathology of colonospcy in [facility] 09-09-2020 note Hyperlipidemia due to type 2 diabetes mellitus ([facility]) 12/09/2022 01/23/2023 Abnormal gait 12/09/2022 01/23/2023 Overview (12/09/2022): CVA 2017 Asthma, mild 12/09/2022 01/23/2023 Tubular adenoma of colon 12/09/2022 Overview (12/09/2022): Completed a colonoscopy 2021 and had a cecum polyp. Biopsy tubular [...] Encounters Date Type Department Care Team Description 07/10/2024 2:00 PM EST Office Visit [facility] [address] [place] [address] [phone] Katrin Leroy MD Lipoma of other specified sites (Primary Dx); Acute gout of left foot, unspecified cause; Primary hypertension; Burn 07/10/2024 Refill [facility] [address] [place] [address] [phone] June Jarvis ANP Gout due to renal impairment, unspecified chronicity, unspecified site 07/03/2024 Travel 07/03/2024 Telephone [facility] [address] [place] [address] Gabriela Rea RN r/s chronic pain group 07/03/2024 Refill [facility] [address] [place] [address] [phone] Katrin Santoyo MD 07/02/2024 Travel 2024 11:20 AM EST Office Visit [facility] [address] [place] [address] [phone] Dhara Cardenas MD Acute bronchitis, unspecified organism (Primary Dx); Influenza A 2024 Telephone [facility] [address] [place] [address] Katrin Santoyo MD Med Refill 2024 Refill [facility] [address] [place] [address] Katrin Santoyo MD 06/25/2024 Refill [facility] [address] [place] [address] Katrin Santoyo MD 06/21/2024 Refill [facility] [address] [place] [address] Katrin Santoyo MD Moderate persistent asthma without complication 06/11/2024 Telephone [facility] [address] [place] [address] [phone] Emili Cordero RN 06/10/2024 Telephone [facility] [address] [place] [address] [phone] Shirin Albarran MD No Show 06/06/2024 Telephone [facility] [address] [place] [address] [phone] Katrin Santoyo MD FYI 06/06/2024 Telephone [facility] [address] [place] [address] [phone] Katrin Santoyo MD Nurse Triage 06/05/2024 Telephone [facility] [address] [place] [address] Gabriela Rea, CASIE Error (VOID this visit) 05/30/2024 Telephone [facility] [address] [place] [address] [phone] Katrin Santoyo MD Nurse Triage 05/22/2024 Telephone [facility] [address] [place] [address] [phone] Katrin Santoyo MD FYI 05/17/2024 Refill [facility] [address] [place] [address] [phone] Moriah Herbert FNP Chronic radicular lumbar pain 05/17/2024 Refill [facility] [address] [place] [address] Shanna Henao MD Chronic radicular lumbar pain 05/12/2024 Refill [facility] [address] [place] [address] Katrin Santoyo MD 04/30/2024 Telephone [facility] [address] [place] [address] Katrin Santoyo MD Nurse Triage 04/26/2024 Refill [facility] [address] [place] [address] Katrin Santoyo MD 04/18/2024 Refill [facility] [address] [place] [address] Katrin Santoyo MD 04/16/2024 Telephone [facility] [address] [place] [address] [phone] Katrin Santoyo MD Request For Order(s) 04/15/2024 Telephone [facility] [address] [place] [address] [phone] Tamiko Bray MA Appointment 04/12/2024 Telephone [facility] [address] [place] [phone] Tamiko Bray MA Durable Medical Equipment from Last 3 Months Immunizations Name Administration [...] Sign Reading Time Taken Comments Blood Pressure 143/84 07/10/2024 1:58 PM EST Pulse 95 07/10/2024 1:58 PM EST Temperature 36.7 ??C (98 ??F) 07/10/2024 1:58 PM EST Respiratory Rate 20 07/10/2024 1:58 PM EST Oxygen Saturation 96% 07/10/2024 1:58 PM EST Inhaled Oxygen Concentration - - Weight 124 kg (274 lb) 07/10/2024 1:58 PM EST Height 172.7 cm (5' 8 ) 07/10/2024 1:58 PM EST Body Mass Index 41.66 07/10/2024 1:58 PM EST Plan of Treatment Upcoming Encounters Date Type Department Care Team (Late st Contact Info) Description 07/16/2024 9:45 AM EDT Office Visit [facility] [address] [place] [phone] 08/22/2024 1:15 PM EDT Office Visit [facility] [address] [place] [address] [phone] Katrin Santoyo MD [address] [place] [phone] Health Maintenance Due Date Last Done Comments [...] 11/13/2023, 11/13/2023, Additional history exists Tobacco Screening 07/10/2025 07/10/2024 DTaP/Tdap/Td Vaccines (3 - Td or Tdap) [...] Pressure 143/84(2024 1:58 PM EST) No Eve Guzman, Diane Hemoglobin A1c < 7 Result Component 12.5(03/27/20 24 3:40 PM EST) No Eve Guzman PharmD Procedures Procedure Name Priority Date/Time Associated Diagnosis Comments POCT INFLUENZA A (ID NOW RAPID MOLECULAR) Routine 2024 11:09 AM EST Influenza A POCT RAPID COVID ANTIGEN Routine 2024 11:08 AM EST Influenza A POCT INFLUENZA B (ID NOW RAPID MOLECULAR) Routine 2024 11:08 AM EST Influenza A HEMOGLOBIN A1C Routine 03/27/2024 3:40 PM EST LIPID PANEL, STANDARD Routine 09/19/2023 1:43 PM EDT Type 2 diabetes mellitus with stage 3a chronic kidney disease, with long-term current use of insulin (CMS/HCC) HEPATITIS PANEL, GENERAL Routine 12/06/2022 10:21 AM EDT Health care maintenance HIV ANTIBODY/ANTIGEN (ND DPH) Routine 12/06/2022 10:21 AM EDT PROPHYLAXIS - ADULT Routine 09/04/2018 1 2:00 AM EDT INTRAORAL - COMPLETE SERIES OF RADIOGRAPHIC IMAGES Routine 08/15/2018 12:00 AM EDT COMPREHENSIVE ORAL EVALUATION - NEW OR ESTABLISHED PATIENT Routine 08/15/2018 12:00 AM EDT from Last 3 Months or Most Recently Relevant to Health Maintenance Results * (ABNORMAL) Influenza A (ID NOW Rapid Molecular) (2024 11:09 AM EST) Influenza A Positive( A) Negative, Indeterminate [facility] Swab 2024 11:0 9 AM EST Dhara Cardenas MD POINT OF CARE TEST ENTER/EDIT OR DERABLES Final Result Performing Organization Address [facility]/ZIP Co de Phone Number [facility] [address] [place] [phone] * Influenza B (ID NOW Rapid Molecular) (2024 11:08 AM EST) Influenza B Negative Negative, Indeterminate [facility] Swab 2024 11:0 8 AM EST us Dhara Cardenas MD POINT OF CARE TEST ENTER/EDIT OR DERABLES Final Result Performing Organization Address [facility]/ZIP Co de Phone Number [facility] [address] [place] [address] [place] [phone] * POCT Rapid COVID Ag (2024 11:08 AM EST) Rapid COVID Ag Negative Swab 2024 11:0 8 AM EST Dhara Cardenas MD POINT OF CARE TEST ENTER/EDIT OR DERABLES Final Result * (ABNORMAL) Hemoglobin A1c (03/27/2024 3:40 PM EST) Hemoglobin A1c 12.5(H) <6.0 % [facility] Comment:Hemoglobin A1C Refer ence Range Adults: 4.8 - 6.0 % Non diabetic: < 6.0 % Goal: < 7.0 %Additional Action Suggested: > 8.0 %Note: Hemoglobin A1c results are invalid for patients with abnormal amounts of HbF. Blood transfusions may impact the HbA1c concentration in the patient sample. Estimated Average Glucose 312 mg/dL [facility] Comment:eAG = Estimated ave rage glucose which is %A1C expressed asaverage glucose, using the formula of the [id number] Glucose study (ADAG), Diabetes Care, Vol.31,#8,Dec. 2007 03/27/2024 3:40 PM EST 03/27/2024 6:33 PM EST us Generic External Data Provider LAB BLOOD ORDERAB LES Final Result [facility] [address] [place] [phone] * (ABNORMAL) Lipid Panel, Standard (09/19/2023 1:43 PM EDT) Triglycerides 316(H) <150 mg/dL [facility] Comment:Desirable Triglyceri de: less than 150 mg/dLBorderline High Triglyceride 150-199 mg/dLHigh Triglyceride: 200-499 mg/dLVery High Triglyceride: greater than or equal to 5OO mg/dL Cholesterol 164 <200 mg/dL [facility] Comment:Desirable Cholestero l: less than 200 mg/dLBorderline High Cholesterol: 200-239 mg/dLHigh Cholesterol: greater than 239 mg/dL LDL Cholesterol Calculated 60 <100 mg/dL [facility] Comment:Desirable LDL: less than 100 mg/dLNear Optimal/Above Optimal LDL: 110- 129 mg/dLBorderline High LDL: 130-159 mg/dLHigh LDL: 160-189 mg/dLVery High LDL: greater than or equal to 190 mg/dL HDL Cholesterol 41 >40 mg/dL [facility] Comment:Desirable HDL: great er than 40 mg/dL Note: This HDL assay may give artificially low results in patients with liver disease. Blood Venous blood specimen / Unknown 09/19/2023 1:43 PM EDT 09/19/2023 3:53 PM EDT Katrin López MD LAB BLOOD ORDERAB LES Final Result [facility] [address] [place] [phone] * HIV Ab/Ag ([facility]) (12/06/2022 10:21 AM EDT) Pathologist [facility] HIV AB/AG Nonreactive Nonreactive [facility] Comment:HIV-1 p24 Ag and/or HIV-1/HIV-2 Ab not detected.A test result that is nonreactive does not exclude thepossibility of exposure to or infection with HIV-1 and/orHIV-2. Nonreactive results in this assay for individualswith prior exposure to HIV-1 and/or HIV-2 may be due toantigen and antibody levels that are below the limit ofdetection of this assay.The [employer] HIV Ag/Ab Combo assay result andsupplemental assay results should be interpreted inconjunction with the patient's clinical presentation,history and other laboratory results. If the results areinconsistent with clinical evidence, additional testing issuggested to confirm the result. 12/06/2022 10:2 1 AM EDT 12/06/2022 11:17 AM EDT Elise Stanford ELECTRICAL EQUIPMENT ASSEMBLER LAB BLOOD ORDERABLES Final Result Performing Organization Address [facility] Co de Phone Number [facility] [address] [place] [phone] * Hepatitis Panel, General (12/06/2022 10:21 AM EDT) Hepatitis A IgM Nonreactive Nonreactive [facility] Comment:IgM antibodies to VILLANUEVA V not detected; does not exclude earlyacute or recovered HAV infection. ~Hepatitis B Surface Antibody REACTIVE Nonreactive [facility] Comment:REACTIVE: > 11.99 mI U/mL Hepatitis B Core Antibody Nonreactive Nonreactive [facility] Hepatitis C Antibody Nonreactive Nonreactive [facility] Comment:Antibodies to HCV no t detected; does not exclude early acuteHCV infection. Hepatitis B Surface Ag Negative Negative [facility] Blood 12/06/2022 10:2 1 AM EDT 12/06/2022 11:17 AM EDT Elise Nolascoon ELECTRICAL EQUIPMENT ASSEMBLER LAB BLOOD ORDERABLES Final Result Performing Organization Address [facility] Co de Phone Number [facility] [address] [place] [phone] from Last 3 Months or Most Recently Relevant to Health Maintenance Insurance [facility] [place] STAND AD[place] Care Teams Music Theory Teacher Relationship Specialty Start Date End Date Katrin Santoyo MD [address] [place] [phone] PCP - General Internal Medicine 12/13/22 Edison Vieira MD [address] [place] [address] Pulmonary Disease 04/07/24 Joe Devi MD [address] [facility] 3rd [place] [address] Gastroenterology 04/07/24 Carito Roche DNP [address] [facility], [address] [place] [address] Nephrology 04/07/24 [employer] 04/11/24
--- OUTSIDE RECORDS SUMMARY | 2024-07-11 15:15 | XMS_ITS | Encounter Summary ---
Author Organization [facility] Address [address] [place] [address] Care Team Providers Care Pleasure Craft Sailor Name Role Phone Deep Pruitt JOHN Primary Care Provider [phone] Encounter Details Date Type Department Care Team (Late st Contact Info) Description 02/13/2018 Scanned Document [facility] [address] [place] [address] Francisco Veloz PA [address] [place] [phone] Social History Tobacco Use Types Packs/Day [...] documented as of this encounter Care Teams Pleasure Craft Sailor Relationship Specialty Start Date End Date Deep Pruitt APRN PCP - General 05/22/19 documented as of this encounter
--- OUTSIDE RECORDS SUMMARY | 2024-07-11 15:15 | XMS_ITS | Clinical Summary ---
Author Organization [facility] Address [address] [facility] [address] [place] [address] Phone Care Team Providers Care Service Agent Name Role Phone Katrin Brumfield Primary Care [...] 4 12/04/19 25 Active ergocalciferol 1.25 MG (21177 UT) capsule Take 1 capsule (50,000 Units [...] AM with Arben Fountain DPM at the [facility] -Will f/u with Pt in a month [...] (see MRI of Brain from 2017 under [facility] Multimedia -Significant deficits on neurologic exam Memory loss and Left handed weakness -Imaging and prior evaluation -Current blood thinning agents is aspirin -Potential details to include, when relevant: poor GAIT, uses a walker to get around -How the diagnosis was made: Pt lived in [facility] at the time, Under Multimedia in [facility] see specific file at specific date [id number].TIF Image MRI Result [facility] - MRI BRAIN CVA -09/25/2016 [id number].TIF Image Evaluation [facility]- Left handed weakness note - 02/20/2017 ?? [...] 2019, the Pt needs to call the [facility] [address] [place], [place] [phone] Diabetic foot 02/07/2019 01/25/2023 01/25/2023 Overview (01/25/2023): Last Assessment & Plan: The Pt continues to deal with bilateral foot pain and wears a pair of Diabetic shoes with specification ordered by his Atomic Physics Professor Doctor Patient encounter status 02/07/2019 01/25/2023 Overview [...] -Pt will be called biweekly by the [facility] Nurse to review his FBS finger [...] medications -He has been following with the [place] [facility] team and reports taking all of [...] decided to move his family back to [place] area due to being closer to family [...] 4.0 - 6.0 % 10.4 10.7 10.6 Immunizations Name Administration Dates Next Due Influenza, [...] Mass Index - - Plan of Treatment Health Maintenance Due Date [...] PCV) 03/24/2023 03/24/2022, 01/21/2021 Diabetes: Hemoglobin A1C 06/27/2024 024, 09/19/2023, 09/08/2023, Additional history exists Colorectal Cancer Screening: Colonoscopy 01/25/2033 01/25/2023 Influenza Vaccine Completed 02/01/2024, , 03/24/2022, Additional history exists Insurance MEDICAID [place] MEDICA[place] Care Teams Service Agent Relationship Specialty Start Date End Date Katrin Brumfield [address] [place] [id number] PCP - General 04/17/23
--- OUTSIDE RECORDS SUMMARY | 2024-07-11 15:15 | XMS_ITS | Encounter Summary ---
Author Organization [employer] [facility] Address [address] [facility] 7t [place] [address] Care Team Providers Care Mosaicist Name Role Phone Elise Stanford Primary Care Provider [phone] Katrin Santoyo MD Primary Care Pro vider Edison Vieira MD Unavailable [phone] Joe Devi MD Unavailable [phone] Encounter Details Date Type Department Care Team (Latest Contact Info) Description 09/04/2018 Abstract [facility] Dental, Provider, DDS Social History Tobacco [...] Description 07/16/2024 9:45 AM EDT Office Visit [facility] [address] [place] [phone] 08/22/2024 1:15 PM EDT Office Visit [facility] [address] [place] [address] [phone] Katrin Santoyo MD [address] [place] [phone] documented as of this encounter Visit Diagnoses Not on filedocumented in this encounter Care Teams Mosaicist Relationship Specialty Start Date End Date Elise Stanford FNP PCP - General Family Medicine 11/24/22 12/12/22 Katrin Santoyo MD [address] [place] [address] PCP - General Internal Medicine 12/13/22 Edison Vieira MD [address] [place] [address] Pulmonary Disease 04/07/24 Joe Devi MD [address] [facility] 3rd [place] [address] Gastroenterology 04/07/24 Carito Roche DNP [address] [facility], [address] [place] [address] Nephrology 04/07/24 [facility] 04/11/24 documented as of this encounter
--- OUTSIDE RECORDS SUMMARY | 2024-07-11 15:15 | XMS_ITS | Encounter Summary ---
Author Organization [employer] Address [address] [facility] 7t [place] [address] Care Team Providers Care Marine Drafter Name Role Phone Elise Stanford CREDIT RATING INSPECTOR Primary Care Provider [phone] Katrin Santoyo MD Primary Care Pro vider Edison Vieira MD Unavailable [phone] Joe Devi MD Unavailable [phone] Encounter Details Date Type Department Care Team (Late st Contact Info) Description 12/06/2022 Telephone [facility] [address] [place] [address] Susan Manzano LPN Social History Tobacco Use [...] glucose of 411 today. Call placed via [employer] reconditioner [id number] patient updated that BG this morning elevated. [...] Description 07/16/2024 9:45 AM EDT Office Visit [facility] [address] [place] [phone] 08/22/2024 1:15 PM EDT Office Visit [facility] [address] [place] [phone] Katrin Santoyo MD [address] [place] [phone] documented as of this encounter Visit Diagnoses Not on filedocumented in this encounter Additional Health Concerns Assessment Noted Time PHQ-9 Depression Total Score: 24 023 2:05 PM EDT documented as of this encounter Care Teams Marine Drafter Relationship Specialty Start Date End Date Elise Stanford FNP PCP - General Family Medicine 11/24/22 12/12/22 Katrin Santoyo MD [address] [place] [address] PCP - General Internal Medicine 12/13/22 Edison Vieira MD [address] [place] [address] Pulmonary Disease 04/07/24 Joe Devi MD 11 [facility] 3rd [place] [address] Gastroenterology 04/07/24 Carito Roche DNP 10 [facility], [address] [place] [address] Nephrology 04/07/24 [facility] [facility] 04/11/24 documented as of this encounter
--- OUTSIDE RECORDS SUMMARY | 2024-07-11 15:15 | XMS_ITS | Encounter Summary ---
Author Organization [facility] Address [address] [place] [address] Care Team Providers Care Service Planner Name Role Phone Deep Pruitt APRN Primary Care Provider Reason for Visit * Reason Comments Other Encounter Details Date Type Department Care Team ([facility] Contact Info) Description 01/13/2021 Telephone [facility] [address] [place] [address] Deep Pruitt APRN [address] [place] [address] Other Social History Tobacco Use [...] any clubs o r organizations such as restorationist groups, unions, fraternal or athletic groups, or [...] Date Recorded PHQ-2 Total Score 6 01/12/2021 [facility] - [...] a side effect fromthat medication. Patient utilizes [facility] [address] [place] [address] Patient contact [phone] documented in this encounter Plan of Treatment [...] as of this encounter Care Teams Service Planner Relationship Specialty Start Date End Date Deep Pruitt APRN PCP - General 05/22/19 documented as of this encounter
--- OUTSIDE RECORDS SUMMARY | 2024-07-11 15:15 | XMS_ITS | Encounter Summary ---
Author Organization [employer] Address [address] [facility] 7t [place] [address] Care Team Providers Care Food Beverage Attendant Name Role Phone Katrin Santoyo MD Primary Care Pro vider Edison Vieira MD Unavailable [phone] Joe Devi MD Unavailable [phone] Reason for Referral * Consultation (Routine) - Pending Review Specialty Diagnoses / Procedures Referred By Contac t Referred To Contact General Surgery Diagnoses Lipoma of other specified sites Katrin Leroy MD [address] [place] [address] Phone: tel: fax: Referral ID Status Reason Start Date Expiration Date Visits Requested Visits Authorized [id number] Pending Review Specialty Services Required 07/10/2024 07/10/2025 1 1 Encounter Details Date Type Department Care Team (Late st Contact Info) Description 07/10/2024 2:00 PM EST Office Visit [facility] [address] [place] [phone] Katrin Leroy MD [address] [place] [address] [phone] Lipoma of other specified sites (Primary Dx); Acute gout of left foot, unspecified cause; Primary hypertension; Burn Social History Tobacco Use Types Packs/Day Years [...] PM EDT documented as of this encounter Last Filed Vital Signs Vital Sign Reading [...] Mass Index 41.66 07/10/2024 1:58 PM EST documented in this encounter Progress Notes * Katrin Kong MD - 07/10/2024 2:00 PM EST Images from the original note were not included. SUBJECTIVE: Darrel Cortes is a 54 y.o. year old male who presents for same day appointment . Acute Concerns: Lump on neck right side, patient reports he noticed this about a week ago, the lump is described asit is not painful but it bothers him Patient also reports he has gout and a few days ago he developed acute pain on his feet especially his right foot first metatarsal joint and heel, he reports he did not has his refill for febuxostat he just got it recently Patient also reports he burned himself on his right arm about 5 days ago when he was cooking, burn was caused by hot oil, area it is healing but notices still painful and there is a little bit of redness around the wound Social History Social History Narrative Not on file Patient Active Problem List Diagnosis 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) Benign tubular adenoma of large intestine Chronic kidney disease (CKD) stage G3a/A3, moderately decreased glomerular filtration rate (GFR) between 45-59 mL/min/1.73 square meter and albuminuria creatinine ratio greater than 300 mg/g ([facility]/HCC) Chronic post-traumatic stress disorder (PTSD) Constipation Elevated parathyroid hormone Gastroesophageal reflux disease Hepatic steatosis Hyperlipidemia associated with type 2 diabetes mellitus (CMS/HCC) (CMS/HCC) Microalbuminuric diabetic nephropathy (CMS/HCC) Need for home health care Neuropathy due to type 2 diabetes mellitus (CMS/HCC) Obstructive sleep apnea Ventral hernia Vitamin D deficiency Moderate persistent asthma Health care maintenance Bilateral leg edema Gout Obesity with serious comorbidity Primary hypertension Hemorrhoids Type 2 diabetes mellitus with stage 3 chronic kidney disease, with long-term current use of insulin(CMS/HCC) Chronic radicular lumbar pain Cholelithiasis Memory loss Leukocytosis Adrenal adenoma, right Diabetes mellitus, labile (CMS/HCC) Alkaline phosphatase elevation Secondary dental caries Fractured dental yazidism without loss of material Right foot pain Chest pressure Chronic respiratory failure with hypoxia (CMS/HCC) On home oxygen therapy Long-term current use of opiate analgesic Lipoma Acute gout of foot Burn Family History Problem Relation Name Age of Onset Colon cancer Mother Anxiety disorder Mother Colon cancer Father Breast cancer Sister Colon cancer Other niece Review of Systems Constitutional: Negative. HENT: Negative. Respiratory: Negative. Cardiovascular: Negative. Musculoskeletal: Positive for arthralgias and myalgias. Skin: Positive for wound. OBJECTIVE: Vitals: 07/10/24 1358 BP: (!) 143/84 BP Location: Left arm Patient Position: Sitting BP Cuff Size: Large adult Pulse: 95 Resp: 20 Temp: 98 ??F (36.7 ??C) TempSrc: Temporal SpO2: 96% Weight: 274 lb (124 kg) Height: 5' 8 (1.727 m) Physical Exam Constitutional: Appearance: Normal appearance. Cardiovascular: Rate and Rhythm: Normal rate and regular rhythm. Pulmonary: Effort: Pulmonary effort is normal. Breath sounds: Normal breath sounds. Chest: Comments: Round lump regular margins located on right upper area chest Musculoskeletal: Arms: Feet: Comments: Crusted wound noticed on his right arm surrounded by erythema warmth sensation it is extremely tender to touch Feet: Comments: Erythema was noticed and first metatarsal joint of the right foot and on the heel of the right foot he has extreme tenderness to touch Skin: Findings: Lesion present. Neurological: Mental Status: He is alert. Follow Up: No follow-ups on file. Current Outpatient Medications on File Prior to Visit Medication Sig Dispense Refill Advair HFA 230-21 MCG/ACT inhaler INHALE 2 PUFFS BY MOUTH TWICE DAILY IN THE MORNING AND AT BEDTIME, RINSE MOUTH AFTER USING. 12 g 3 albuterol (2.5 MG/3ML) 0.083% nebulizer solution Take 3 mL (2.5 mg) by nebulization every 4 (four) hours if needed for wheezing. 75 mL 3 Alcohol Swabs (B-D SINGLE USE SWABS REGULAR) pads Apply 1 Units topically 4 times daily. 100 each 11 Alpha-Lipoic Acid 600 MG capsule TAKE 1 CAPSULE BY MOUTH EVERY DAY 30 capsule 5 amLODIPine (Norvasc) 5 MG tablet TAKE 1 TABLET BY MOUTH EVERY DAY 90 tablet 1 ammonium lactate (Lac-Hydrin) 12 % lotion Apply 1 Application. topically Once per day. To feet Aspirin Low Dose 81 MG chewable tablet CHEW 1 TABLET BY MOUTH ONCE DAILY EVERY MORNING 90 tablet 1 atorvastatin (Lipitor) 80 MG tablet TAKE 1 TABLET BY MOUTH EVERY DAY 90 tablet 1 B-D UF III MINI PEN NEEDLES 31G X 5 MM [facility] Use as instructed 100 each 11 Blood Glucose Monitoring Suppl (FreeStyle [place] Lite) w/Device kit Use to test blood sugar bid dxdm 1 kit 0 calcium carbonate (Tums) 500 MG chewable tablet Chew 2 tablets (1,000 mg) Once per day. 180 tablet 0 capsaicin (Capzasin-HP) 0.1 % cream Apply thin layer by topical route up to 4 times daily as neededfor pain. 45 g 3 carvedilol (Coreg) 25 MG tablet Take by mouth with breakfast and with evening meal. 180 tablet 1 cholecalciferol (Vitamin D-3) 50 MCG (2000 UT) tablet Take 1 tablet (50 mcg) by mouth Once per day.90 tablet 1 clonazePAM (KlonoPIN) 0.5 MG tablet 1 tab TID Continuous Blood Gluc Sensor (Dexcom G7 Sensor) [facility] Dextromethorphan-guaiFENesin (Mucinex DM) 30-600 MG tablet sustained-release 12 hour Use 1 tab TID 28 tablet 0 Diclofenac Sodium 1 % gel APPLY A THIN LAYER (2 GRAMS) TOPICALLY TO AFFECTED AREA(S) THREE TIMES DAILY NEEDED FOR PAIN 100 g 1 divalproex (Depakote ER) 500 MG 24 hr tablet Take 2 tablets by mouth at bedtime DULoxetine (Cymbalta) [address] capsule TAKE 1 CAPSULE BY MOUTH EVERY DAY IN THE EVENING DULoxetine (Cymbalta) [address] capsule Take 1 capsule (60 mg) by mouth in the morning. 90 capsule 1 ergocalciferol (Vitamin D-2) 1.25 MG (26712 UT) capsule Take 1 capsule by mouth. Every Monday and ezetimibe (Zetia) 10 MG tablet TAKE 1 TABLET BY MOUTH EVERY DAY IN THE MORNING 90 tablet 1 febuxostat (Uloric) 40 MG tablet TAKE 1 TABLET BY MOUTH ONCE DAILY 90 tablet 0 fluticasone (Flonase) 50 MCG/ACT nasal spray Administer 1-2 sprays into each nostril Once per day. Shake gently. Before first use, prime pump. After use, clean tip and replace cap. 16 g 0 FreeStyle lancets 1 each by Other route before breakfast, before lunch, before evening meal, and atbedtime. Use bid, dx type 2 diabetes 100 each 11 FREESTYLE LITE test strip Use to test blood sugar as directed 100 each 11 FT Lubricant Eye Drops 0.5 % ophthalmic solution INSTILL 1 DROP IN EACH EYE NEEDED DRY EYES 30 each 1 furosemide (Lasix) 40 MG tablet Take 1 tablet (40 mg) by mouth Once per day. 90 tablet 0 gabapentin (Neurontin) 600 MG tablet TAKE 1 TABLET BY MOUTH EVERY MORNING AND TAKE 1/2 TABLET BY MOUTH EVERY EVENING 45 tablet 2 glucose 4 g chewable tablet Chew 4 tablets (16 g) if needed for low blood sugar. 50 tablet 2 HumuLIN R U-500 KWIKPEN 500 UNIT/ML CONCENTRATED injection Inject 135 units under the skin three times daily with meals Jardiance 10 MG Take 1 tablet (10 mg) by mouth Once per day. 90 tablet 0 Ketotifen Fumarate 0.035 % solution PLACE 1 DROP INTO THE AFFECTED EYE(S) TWICE DAILY NEEDED FORALLERGIES 5 mL 1 lidocaine (Lidoderm) 5 % patch Apply 1 patch topically Once per day. 12 hours on and 12 hours off Nebulizers [facility] Use nebulizer as instructed 1 each 0 omega-3 acid ethyl esters (Lovaza) 1 g capsule Take 2 capsules (2 g) by mouth 2 times daily. 120 capsule 11 Respiratory Therapy Supplies (Nebulizer/Tubing/Mouthpiece) kit To be used with Nebulizer 1 kit 0 Spiriva Respimat 1.25 MCG/ACT inhaler INHALE 2 PUFFS BY MOUTH EVERY DAY IN THE MORNING 4 g 3 SSD 1 % cream Apply 1 Application. topically Once per day. traMADol (Ultram) 50 MG tablet TAKE 1 TABLET BY MOUTH EVERY 8 HOURS NEEDED SEVERE PAIN FOR UP TO28 DAYS 84 tablet 0 traZODone (Desyrel) 150 MG tablet Take 1 to 2 tablets by mouth at bedtime as needed Ventolin HFA 108 (90 Base) MCG/ACT inhaler Inhale 2 puffs every 4 (four) hours if needed for wheezing. 18 g 3 ziprasidone (Geodon) 80 MG capsule [DISCONTINUED] naproxen (Naprosyn) 500 MG tablet Take 500 mg by mouth 2 times daily. No current facility-administered medications on file prior to visit. Problem List Items Addressed This Visit Lipoma - Primary I refer patient to surgery Relevant Orders Referral to General Surgery Acute gout of foot I prescribed for patient prednisone taper then he can restart his maintenance medication for gout Relevant Medications predniSONE (Deltasone) 10 MG tablet Primary hypertension Blood pressure today is slightly elevated, patient did took his medication today, he tells me he isin pain so most likely blood pressure is a little bit elevated due to pain I advised low-sodium diet to take all medications as prescribed without missing any dose and follow-up with PCP Burn I will cover patient with antibiotic doxycycline 100 mg twice a day for 1 week ED precautions were reviewed I let him know if erythema pain gets worse to report back immediately Relevant Medications doxycycline (Vibra-Tabs) 100 MG tablet documented in this encounter Miscellaneous Notes * Assessment & Plan Note - Katrin Kong MD - 07/10/2024 2:47 PM EST Associated Problem(s): Lipoma I refer patient to surgery * Assessment & Plan Note - Katrin Kong MD - 07/10/2024 2:47 PM EST Associated Problem(s): Burn I will cover patient with antibiotic doxycycline 100 mg twice a day for 1 week ED precautions were reviewed I let him know if erythema pain gets worse to report back immediately * Assessment & Plan Note - Katrin Kong MD - 07/10/2024 2:46 PM EST Associated Problem(s): Acute gout of foot I prescribed for patient prednisone taper then he can restart his maintenance medication for gout * Assessment & Plan Note - Katrin Kong MD - 07/10/2024 2:46 PM EST Associated Problem(s): Primary hypertension Blood pressure today is slightly elevated, patient did took his medication today, he tells me he isin pain so most likely blood pressure is a little bit elevated due to pain I advised low-sodium diet to take all medications as prescribed without missing any dose and follow-up with PCP documented in this encounter Plan of Treatment Upcoming Encounters Date Type Department Care Team (Late st Contact Info) Description 07/16/2024 9:45 AM EDT Office Visit [address] [address] 08/22/2024 1:15 PM EDT Office Visit [address] [phone] Katrin Santoyo MD [address] [place] [phone] Scheduled Referrals Name Type Priority Associated Diagnoses Orde r Schedule Referral to General Surgery Outpatient Referral Routine Lipoma of other specified sites Expected: 07/10/2024 (Approximate), Expires: 07/10/2025 documented as of this encounter Goals Goal Patient Goal Type Associated Problems Recent Progress Patient-Stated? Author Blood Pressure < 140/90 Blood Pressure 143/84(2024 1:58 PM EST) No Piers-GambEve sheikh, PharmD Hemoglobin A1c < 7 Result Component 12.5(03/27/20 3:40 PM EST) No Nemesios-Eve Grier, PharmD documented as of this encounter Visit Diagnoses Diagnosis Lipoma of other specified sites- Primary Acute gout of left foot, unspecified cause Primary hypertension Unspecified essential hypertension Burn Burn of unspecified site, unspecified degree documented in this encounter Additional Health Concerns Assessment Noted Time PHQ-9 Depression Total Score: 4 10/31/19 10:32 AM EDT documented as of this encounter Care Teams Food Beverage Attendant Relationship Specialty Start Date End Date Katrin Santoyo MD [address] [place] [address] [phone] PCP - General Internal Medicine 12/13/22 Edison Vieira MD [address] [place] [address] Pulmonary Disease 04/07/24 Joe Devi MD [address]rd [place] [address] Gastroenterology 04/07/24 Carito Roche DNP [address], [address] [place] [address] Nephrology 04/07/24 [facility] 04/11/24 documented as of this encounter
--- OUTSIDE RECORDS SUMMARY | 2024-07-11 15:15 | XMS_ITS | Encounter Summary ---
Author Organization [facility] Address [address] [place] [address] Care Team Providers Care Preschool Paraprofessional Name Role Phone Deep Pruitt JOHN Primary Care Provider Encounter Details Date Type Department Care Team (Late st Contact Info) Description 02/12/2016 Scanned Document [facility] [address] [place] [address] Francisco Veloz PA [address] [place] [phone] Social History Tobacco Use Types Packs/Day [...] as of this encounter Care Teams Preschool Paraprofessional Relationship Specialty Start Date End Date Deep Pruitt APRN PCP - General 05/22/19 documented as of this encounter
--- OUTSIDE RECORDS SUMMARY | 2024-07-11 15:15 | XMS_ITS | Encounter Summary ---
Author Organization [facility] Address [address] [place] [address] Care Team Providers Care Dx Board Operator Name Role Phone Sonal Deep Niko LOPEZ Primary Care Provider Reason for Visit * Reason Comments Medication Refill Encounter Details Date Type Department Care Team (Late st Contact Info) Description 01/04/[address] [facility] Nutrition at [address] [address] Zena Hines PA [address] [place] [phone] Medication Refill Social History Tobacco Use [...] Date Recorded PHQ-2 Total Score 0 11/18/2020 [facility] - [...] documented as of this encounter Care Teams Dx Board Operator Relationship Specialty Start Date End Date Deep Pruitt APRN PCP - General 05/22/19 documented as of this encounter
--- OUTSIDE RECORDS SUMMARY | 2024-07-11 15:15 | XMS_ITS | Encounter Summary ---
Author Organization [facility] Address [address] [place] [address] Care Team Providers Care Clearance Diver Name Role Phone Deep Pruitt JOHN Primary Care Provider Encounter Details Date Type Department Care Team (Late st Contact Info) Description 09/26/2016 Scanned Document [facility] [address] [place], [place] [phone] External, Provider Social History Tobacco Use Types [...] documented as of this encounter Care Teams Clearance Diver Relationship Specialty Start Date End Date Deep Pruitt APRN PCP - General 05/22/19 documented as of this encounter
--- OUTSIDE RECORDS SUMMARY | 2024-07-11 15:15 | XMS_ITS | Encounter Summary ---
Author Organization [employer] [facility] Address [address] 7t [place] [address] Care Team Providers Care Director Of Federal Sales Name Role Phone Elise Stanford Primary Care Provider [phone] Katrin Santoyo MD Primary Care Pro vider Edison Vieira MD Unavailable [phone] Joe Devi MD Unavailable [phone] Reason for Visit * Reason Onset Date Comments Referral 11/24/2022 Podiatry Encounter Details Date Type Department Care Team (Late st Contact Info) Description 11/24/2022 Telephone [facility] MED[facility]INE [address] [place] [address] Elise Stanford FNP [address] [place] [address] [place] [address] Referral (Podiatry/) Social History Tobacco Use Types [...] Anne Ocasio - 11/29/2022 9:46 AM EDT Oil And Gas Superintendent re-faxed referral to Dr. Smith's office. Oil And Gas Superintendent called Dr. Smith's office and confirmed that referral was received. Oil And Gas Superintendent attempted to call patient twice to infirm that he may call to schedule his appt but did not answer and voicemail could not be left due to pt not having voicemail setup. Dr. Smith [address] [place] [address] FAX [phone] * Telephone Encounter - Elizabeth Melo - 11/24/2022 9:51 AM EDT Tc from patient requesting status on podiatry referral. Oil And Gas Superintendent provided address and phone number and patient stated they told him they don't have a referral or any notes for referral. Patient states he let them know of referral letter and they stated they still need notes to be seen. documented in this encounter Plan of Treatment Upcoming Encounters Date Type Department Care Team ([facility] st Contact Info) Description 07/16/2024 9:45 AM EDT Office Visit [address] [address] 08/22/2024 1:15 PM EDT Office Visit [address] [address] Katrin Santoyo MD [address] [place] [address] documented as of this encounter Visit Diagnoses Not on filedocumented in this encounter Additional Health Concerns Assessment Noted Time PHQ-9 Depression Total Score: 24 11/18/ 023 2:05 PM EDT documented as of this encounter Care Teams Director Of Federal Sales Relationship Specialty Start Date End Date Elise Stanford FNP PCP - General Family Medicine 11/24/22 12/12/22 Katrin Santoyo MD [address] [place] [address] PCP - General Internal Medicine 12/13/22 Edison Vieira MD [address] [place] [address] Pulmonary Disease 04/07/24 Joe Devi MD [address] [facility] 3rd [place] [address] Gastroenterology 04/07/24 Carito Roche DNP [address] [facility], [address] [place] [address] Nephrology 04/07/24 [employer] 04/11/24 documented as of this encounter
--- OUTSIDE RECORDS SUMMARY | 2024-07-11 15:15 | XMS_ITS | Encounter Summary ---
Author Organization [facility] Address [address] [place] [address] Care Team Providers Care Dorr Operator Name Role Phone BradleyDeep medina Niko LOPEZ Primary Care Provider Encounter Details Date Type Department Care Team (Late st Contact Info) Description 02/19/2020 Scanned Document [facility] [address] [place], [place] [phone] Arben Fountain, NOLVIA [address] [place] [address] Social History Tobacco Use Types [...] Answer Date Recorded PHQ-2 Score 2 10/02/2019 [facility] of Occupat ional Health - Occupational Stress [...] documented as of this encounter Care Teams Dorr Operator Relationship Specialty Start Date End Date Deep Pruitt APRN PCP - General 05/22/19 documented as of this encounter
--- OUTSIDE RECORDS SUMMARY | 2024-07-11 15:15 | XMS_ITS | Encounter Summary ---
Author Organization [facility] Address [address] [place] [address] Care Team Providers Care Client Partner Name Role Phone Deep Pruitt JOHN Primary Care Provider Encounter Details Date Type Department Care Team (Late st Contact Info) Description 01/02/2017 Scanned Document [facility] [address] [place], [place] [phone] Francisco Veloz PA [address] [place] [address] Social History Tobacco Use Types [...] documented as of this encounter Care Teams Client Partner Relationship Specialty Start Date End Date Deep Pruitt APRN PCP - General 05/22/19 documented as of this encounter
--- OUTSIDE RECORDS SUMMARY | 2024-07-11 15:15 | XMS_ITS | Encounter Summary ---
Author Organization [employer] Address [address] [facility] 7 [place] [address] Care Team Providers Care Software Quality Manager Name Role Phone Katrin Santoyo MD Primary Care Pro vider Edison Vieira MD Unavailable Joe Devi MD Unavailable [phone] Encounter Details Date Type Department Care Team (Late st Contact Info) Description 06/21/2023 Abstract [facility] [address] [place], [place] [phone] Katrin Santoyo MD [address] [place] [address] Social History Tobacco Use Types Packs/Day Years [...] Description 07/16/2024 9:45 AM EDT Office Visit [facility] [address] [place] [address] 08/22/2024 1:15 PM EDT Office Visit [facility] [address] [place] [phone] Katrin Santoyo MD [address] [place] [address] documented as of this encounter Goals Goal Patient Goal Type Associated Problems Recent Progress Patient-Stated? Author Blood Pressure < 140/90 Blood Pressure 143/84(2024 1:58 PM EST) No Piers-Gambl e, Eve, PharmD Hemoglobin A1c < 7 Result Component 12.5(03/27/20 24 3:40 PM EST) No Piers-Gambl e, Eve, PharmD documented as of this encounter Visit Diagnoses Not on filedocumented in this encounter Additional Health Concerns Assessment Noted Time PHQ-9 Depression Total Score: 20 023 9:21 AM EDT documented as of this encounter Care Teams Software Quality Manager Relationship Specialty Start Date End Date Katrin Santoyo MD [address] [place] [address] PCP - General Internal Medicine 12/13/22 Edison Vieira MD [address] [place] [address] Pulmonary Disease 04/07/24 Joe Devi MD [address] 3rd Floor [place] [address] Gastroenterology 04/07/24 Carito Roche DNP [address], [address] [place] [address] Nephrology 04/07/24 [employer] 04/11/24 documented as of this encounter
--- OUTSIDE RECORDS SUMMARY | 2024-07-11 15:15 | XMS_ITS | Encounter Summary ---
Author Organization [facility] Address [address] [place] [address] Care Team Providers Care Polyethylene Bag Machine Operator Name Role Phone Deep Pruitt APRN Primary Care Provider Reason for Visit * Reason Comments Medication Refill Encounter Details Date Type Department Care Team ([facility] st Contact Info) Description 01/29/2021 Refill [facility] [address] [place], [place] [phone] Deep Pruitt APRN [address] [place] [address] Medication Refill Social History Tobacco [...] Date Recorded PHQ-2 Total Score 6 01/21/2021 [facility] of Occupat ional Health - [...] documented as of this encounter Care Teams Polyethylene Bag Machine Operator Relationship Specialty Start Date End Date Deep Pruitt APRN PCP - General 05/22/19 documented as of this encounter
--- OUTSIDE RECORDS SUMMARY | 2024-07-11 15:15 | XMS_ITS | Encounter Summary ---
Author Organization [facility] Address [address] [place] [address] Care Team Providers Care Timber Killer Name Role Phone Deep Pruitt JOHN Primary Care Provider Encounter Details Date Type Department Care Team (Late st Contact Info) Description 01/01/2018 Scanned Document [facility] [address] [place], [place] [address] Francisco Veloz PA [address] [place] [address] Social History Tobacco Use Types Packs/Day [...] documented as of this encounter Care Teams Timber Killer Relationship Specialty Start Date End Date Deep Pruitt APRN PCP - General 05/22/19 documented as of this encounter
--- OUTSIDE RECORDS SUMMARY | 2024-07-11 15:15 | XMS_ITS | Encounter Summary ---
Author Organization [facility] Address [address] [place] [address] Care Team Providers Care Daytime Caregiver Name Role Phone MorrisDeep medina Niko LOPEZ Primary Care Provider Encounter Details Date Type Department Care Team (Late st Contact Info) Description 02/19/2020 Scanned Document [facility] [address] [place], [place] [phone] Arben Fountain, NOLVIA [address] [place] [address] Social History Tobacco Use Types [...] Answer Date Recorded PHQ-2 Score 2 10/02/2019 [facility] [place] of Occupat ional Health - Occupational Stress [...] documented as of this encounter Care Teams Daytime Caregiver Relationship Specialty Start Date End Date Deep Pruitt APRN PCP - General 05/22/19 documented as of this encounter
--- OUTSIDE RECORDS SUMMARY | 2024-07-11 15:15 | XMS_ITS | Encounter Summary ---
Author Organization [facility] Address [address] [place] [address] Care Team Providers Care Test Data Developer Name Role Phone Deep Pruitt APRN Primary Care Provider Reason for Visit * Reason Comments Medication Refill Encounter Details Date Type Department Care Team ([facility] st Contact Info) Description 02/01/2021 Refill [facility] [address] [place], [place] [phone] Deep Pruitt APRN [address] [place] [address] Medication Refill Social History Tobacco [...] Date Recorded PHQ-2 Total Score 6 01/21/2021 [facility] of Occupat ional Health - [...] documented as of this encounter Care Teams Test Data Developer Relationship Specialty Start Date End Date Deep Pruitt APRN PCP - General 05/22/19 documented as of this encounter
--- OUTSIDE RECORDS SUMMARY | 2024-07-11 15:15 | XMS_ITS | Encounter Summary ---
Author Organization [employer] Address [address] [facility] 7t [place] [address] Care Team Providers Care Carpentry Instructor Name Role Phone Elise Stanford SNORKELLING INSTRUCTOR Primary Care Provider [phone] Katrin Sanotyo MD Primary Care Pro vider Edison Vieira MD Unavailable [phone] Joe Devi MD Unavailable [phone] Encounter Details Date Type Department Care Team (Late st Contact Info) Description 12/06/2022 Telephone [facility] MEDICINE [address] [place] [address] Susan Manzano LPN Social History Tobacco Use [...] Critical result line call from Damaris with [facility]. Patient glucose reported as 411 today. Triage call to follow with patient. Please update PCP with critical result. documented in this encounter Plan of Treatment Upcoming Encounters Date Type Department Care Team (Late st Contact Info) Description 07/16/2024 9:45 AM EDT Office Visit [facility] [address] [place] [address] 08/22/2024 1:15 PM EDT Office Visit [address] [address] Katrin Santoyo MD [address] [place] [address] documented as of this encounter Visit Diagnoses Not on filedocumented in this encounter Additional Health Concerns Assessment Noted Time PHQ-9 Depression Total Score: 24 023 2:05 PM EDT documented as of this encounter Care Teams Carpentry Instructor Relationship Specialty Start Date End Date Elise Stanford FNP PCP - General Family Medicine 11/24/22 12/12/22 Katrin Santoyo MD [address] [place] [address] PCP - General Internal Medicine 12/13/22 Edison Vieira MD [address] [place] [address] Pulmonary Disease 04/07/24 Joe Devi MD [address] [facility] 3rd [place] [address] Gastroenterology 04/07/24 Carito Roche DNP [address] [facility], [address] [place] [address] Nephrology 04/07/24 [employer] 04/11/24 documented as of this encounter
--- OUTSIDE RECORDS SUMMARY | 2024-07-11 15:15 | XMS_ITS | Clinical Summary ---
Author Organization [facility] Address [address] [place] [address] Phone Care Team Providers Care Dye Expert Name Role Phone Physician, No Pcp Primary [...] up to 3 days. 6 each 04/08/20 Active Immunizations Name Administration Dates Next Due Moderna [...] (2 of 2 - PCV) 01/21/2022 01/21/2021 Colorectal Cancer Screening: Colonoscopy 06/02/2023 Social Influencers [...] - Td or Tdap) 03/24/2032 03/24/2022, 10/05/2016 Hepatitis B Vaccines Completed 04/05/2017, 10/05/2016, 08/17/2016 [...] Procedure Name Priority Date/Time Associated Diagnosis Comments ANNUAL BMP BLOOD TEST Routine 11/07/2023 LIPID PANEL Routine 09/19/2023 URINE ALBUMIN CREATININE RATIO Routine 05/19/2023 HEMOGLOBIN A1C Routine 05/17/2023 HEPATITIS C SCREENING Routine 12/06/2022 HIV SCREENING Routine 12/06/2022 from Last 3 Months or Most Recently Relevant to Health Maintenance Results * Annual BMP Blood Test (11/07/2023) Pathologist [facility] Annual BMP Blood Test Abstracted [facility] Provider HEALTH MAINTENANCE Final Result * Lipid panel (09/19/2023) Pathologist [facility] Triglycerides 0 mg/dL Comment:No interpretation Cholesterol 0 mg/dL Comment:No interpretation HDL 0 mg/dL Comment:No interpretation LDL Cholesterol 0 mg/dL Comment:No interpretation Blood Venous blood specimen / Unknown Result [facility] [place] [facility] Provider LAB BLOOD ORDERABLES Fauzia l Result * Urine Albumin Creatinine Ratio (05/19/2023) Pathologist [facility] Urine Albumin Creatinine Ratio Abstracted [facility] Provider HEALTH MAINTENANCE Final Result * Hemoglobin A1c (05/17/2023) Pathologist [facility] Hemoglobin A1C 0.0 % Comment:No interpretation Blood Venous blood specimen / Unknown Result [facility] [place] [facility] Provider LAB BLOOD ORDERABLES Fauzia l Result * HIV Screening (12/06/2022) Pathologist [facility] HIV Screening Abstracted Result [facility] [place] [facility] Provider HEALTH MAINTENANCE Final Result * Hepatitis C Screening (12/06/2022) Pathologist [facility] Hepatitis C Screening Abstracted Result [facility] [place] [facility] Provider HEALTH MAINTENANCE Final Result from Last 3 Months or Most Recently Relevant to Health Maintenance Insurance MEDICAID - [place] Care Teams Dye Expert Relationship Specialty Start Date End Date Physician, No Pcp PCP - General 04/08/24
--- OUTSIDE RECORDS SUMMARY | 2024-07-11 15:15 | XMS_ITS | Encounter Summary ---
Author Organization [employer] Address [address] [facility] 7t [place] [address] Care Team Providers Care Tea Bag Machine Tender Name Role Phone Katrin Santoyo MD Primary Care Pro vider Edison Vieira MD Unavailable [phone] Joe Devi MD Unavailable [phone] Reason for Visit * Reason Onset Date Comments Referral 04/05/2023 Encounter Details Date Type Department Care Team (Late st Contact Info) Description 04/05/2023 Telephone [facility] MEDICINE [address] [place], [place] [phone] Katrin Santoyo MD [address] [place], [place] [phone] Referral Social History Tobacco Use Types Packs/Day [...] Bhardwaj - 04/06/2023 10:27 AM EST Called [facility] Gastro for an update and they stated [...] Gastro made on 04/04/2023 sent to [address] [facility], states that they called facility and facility informs that their missing a summary form. Please contact pt at [phone] Gabonese Speaker documented in this encounter Plan of Treatment Upcoming Encounters Date Type Department Care Team ([facility] st Contact Info) Description 07/16/2024 9:45 AM EDT Office Visit [facility] MED[facility]INE [address] [place] [address] 08/22/2024 1:15 PM EDT Office Visit [facility] [address] [place] [phone] Katrin Santoyo MD [address] [place] [address] documented as of this encounter Goals Goal Patient Goal Type Associated Problems Recent Progress Patient-Stated? Author Blood Pressure < 140/90 Blood Pressure 143/84(2024 1:58 PM EST) No Eve Guzman, PharmD Hemoglobin A1c < 7 Result Component 12.5(03/27/20 3:40 PM EST) No Eve Guzman PharmD documented as of this encounter Visit Diagnoses Not on filedocumented in this encounter Additional Health Concerns Assessment Noted Time PHQ-9 Depression Total Score: 023 9:21 AM EDT documented as of this encounter Care Teams Tea Bag Machine Tender Relationship Specialty Start Date End Date Katrin Santoyo MD [address] [place] [address] PCP - General Internal Medicine 12/13/22 Edison Vieira MD 5 [place] [address] Pulmonary Disease 04/07/24 Joe Devi MD [address] [place] [address] 3rd [place] [address] Gastroenterology 04/07/24 Carito Roche DNP 10 [facility], [address] [place] [address] Nephrology 04/07/24 [employer] 04/11/24 documented as of this encounter
--- OUTSIDE RECORDS SUMMARY | 2024-07-11 15:15 | XMS_ITS | Encounter Summary ---
Author Organization [facility] Address [address] [place] [address] Care Team Providers Care Canopy Stringer Name Role Phone Deep Pruitt JOHN Primary Care Provider Encounter Details Date Type Department Care Team (Late st Contact Info) Description 11/22/2017 Scanned Document [facility] [address] [place], [place] [phone] Francisco Veloz PA [address] [place] [address] Social History Tobacco Use Types [...] documented as of this encounter Care Teams Canopy Stringer Relationship Specialty Start Date End Date Deep Pruitt APRN PCP - General 05/22/19 documented as of this encounter
--- OUTSIDE RECORDS SUMMARY | 2024-07-11 15:15 | XMS_ITS | Encounter Summary ---
Author Organization [employer] Address [address] [facility] 7t [place] [address] Care Team Providers Care Residential Support Worker Name Role Phone Katrin Santoyo MD Primary Care Pro vider Edison Vieira MD Unavailable [phone] Joe Devi MD Unavailable [phone] Reason for Visit * Reason Onset Date Comments r/s chronic pain group 07/03/2024 Encounter Details Date Type Department Care Team ([facility] Contact Info) Description 07/03/2024 Telephone [facility] [address] [place] [address] Gabriela Rea, RN [address] [place] [address] r/s chronic pain group Social History Tobacco Use Types Packs/Day Years [...] encounter Miscellaneous Notes * Telephone Encounter - Gabriela Rea RN - 07/03/2024 3:42 PM EST Pt NCNS to chronic pain group 07/02/24. TC to pt via S ID# [id number]. Appt r/s to 07/16/24 @ 9:30am. documented in this encounter Plan of Treatment Upcoming Encounters Date Type Department Care Team (Late st Contact Info) Description 07/16/2024 9:45 AM EDT Office Visit [facility] MEDICINE [address] [place] [address] 08/22/2024 1:15 PM EDT Office Visit [facility] [address] [place] [address] Katrin Santoyo MD [address] [place] [address] documented as of this encounter Goals Goal Patient Goal Type Associated Problems Recent Progress Patient-Stated? Author Blood Pressure < 140/90 Blood Pressure 143/84(2024 1:58 PM EST) No Eve Guzman, Diane Hemoglobin A1c < 7 Result Component 12.5(03/27/20 3:40 PM EST) Eve Merida, KathiaD documented as of this encounter Visit Diagnoses Not on filedocumented in this encounter Additional Health Concerns Assessment Noted Time PHQ-9 Depression Total Score: 4 10/31/19 10:32 AM EDT documented as of this encounter Care Teams Residential Support Worker Relationship Specialty Start Date End Date Katrin Santoyo MD [address] [place] [address] PCP - General Internal Medicine 12/13/22 Edison Vieira MD 5 [place] [address] Pulmonary Disease 04/07/24 Joe Devi MD 11 [facility] 3rd [place] [address] Gastroenterology 04/07/24 Carito Roche DNP 10 [facility], [address] [place] [address] Nephrology 04/07/24 [employer] 04/11/24 documented as of this encounter
--- OUTSIDE RECORDS SUMMARY | 2024-07-11 15:15 | XMS_ITS | Encounter Summary ---
Author Organization [employer] Address [address] [facility] 7t [place] [address] Care Team Providers Care Boom Man Name Role Phone Katrin Santoyo MD Primary Care Pro vider Edison Vieira MD Unavailable [phone] Joe Devi MD Unavailable [phone] Reason for Visit * Reason Comments Med Refill Encounter Details Date Type Department Care Team ([facility] st Contact Info) Description 06/21/2024 Refill [facility] PEDS [address] [place] [address] Katrin Santoyo MD [address] [place] [address] Moderate persistent asthma without complication Social History [...] Description 07/16/2024 9:45 AM EDT Office Visit [facility] [address] [place] [address] 08/22/2024 1:15 PM EDT Office Visit [facility] [address] [place] [address] Katrin Santoyo MD [address] [place] [address] documented as of this encounter Goals Goal [...] documented as of this encounter Care Teams Boom Man Relationship Specialty Start Date End Date Katrin Santoyo MD [address] [place] [address] PCP - General Internal Medicine 12/13/22 Edison Vieira MD 5 [place] [address] Pulmonary Disease 04/07/24 Joe Devi MD 11 [facility] 3rd [place] [address] Gastroenterology 04/07/24 Carito Roche DNP 10 [facility], [address] [place] [address] Nephrology 04/07/24 [employer] 04/11/24 documented as of this encounter
--- OUTSIDE RECORDS SUMMARY | 2024-07-11 15:15 | XMS_ITS | Encounter Summary ---
Author Organization [employer] Address [address] [facility] 7t [place] [address] Care Team Providers Care Podiatry Teacher Name Role Phone Katrin Santoyo MD Primary Care Pro vider Edison Vieira MD Unavailable [phone] Joe Devi MD Unavailable [phone] Reason for Visit * Reason Comments Med Refill Encounter Details Date Type Department Care Team (Late st Contact Info) Description 01/02/2023 Refill [facility] [address] [place] [address] Elise Stanford FNP [address] [place] [address] Dept [place] [address] Hemorrhoids, unspecified hemorrhoid type Social History Tobacco [...] Description 07/16/2024 9:45 AM EDT Office Visit [facility] [address] [place] [address] 08/22/2024 1:15 PM EDT Office Visit [facility] [address] [place] [address] Katrin Santoyo MD [address] [place] [address] documented as of this encounter Goals Goal Patient Goal Type Associated Problems Recent Progress Patient-Stated? Author Blood Pressure < 140/90 Blood Pressure 143/84(2024 1:58 PM EST) No Piers-Gambl eNimosa, PharmD Hemoglobin A1c < 7 Result Component 12.5(03/27/20 3:40 PM EST) No [employer]-Eve Grier, PharmD documented as of this encounter Visit Diagnoses Diagnosis Hemorrhoids, unspecified hemorrhoid type documented in this encounter Additional Health Concerns Assessment Noted Time PHQ-9 Depression Total Score: 24 023 2:05 PM EDT documented as of this encounter Care Teams Podiatry Teacher Relationship Specialty Start Date End Date Katrin Santoyo MD [address] [place] [address] PCP - General Internal Medicine 12/13/22 Edison Vieira MD 5 [place] [address] Pulmonary Disease 04/07/24 Joe Devi MD 11 [facility] 3rd [place] [address] Gastroenterology 04/07/24 Carito Roche DNP 10 [facility], [address] [place] [address] Nephrology 04/07/24 [employer] 04/11/24 documented as of this encounter
--- OUTSIDE RECORDS SUMMARY | 2024-07-11 15:15 | XMS_ITS | Encounter Summary ---
Author Organization [employer] Address [address] [facility] [address] 7t [place] [address] Care Team Providers Care Fitness Coach Name Role Phone Katrin Santoyo MD Primary Care Pro vider Edison Vieira MD Unavailable [phone] Joe Devi MD Unavailable [phone] Reason for Visit * Reason Comments Med Refill Encounter Details Date Type Department Care Team (Late st Contact Info) Description 07/10/2024 Refill [facility] [address] [place], [place] [phone] June Jarvis ANP [address] [place], [place] [phone] Gout due to renal impairment, unspecified chronicity, unspecified site Social History Tobacco Use Types Packs/Day Years [...] Description 07/16/2024 9:45 AM EDT Office Visit [facility] [address] [place] [address] 08/22/2024 1:15 PM EDT Office Visit [address] [address] Katrin Santoyo MD [address] [place] [address] documented as of this encounter Goals Goal Patient Goal Type Associated Problems Recent Progress Patient-Stated? Author Blood Pressure < 140/90 Blood Pressure 143/84(2024 1:58 PM EST) No Piers-Gambl e, Eve, PharmD Hemoglobin A1c < 7 Result Component 12.5(03/27/20 3:40 PM EST) No Piers-Gambl e, Eve, PharmD documented as of this encounter Visit Diagnoses Diagnosis Gout due to renal impairment, unspecified chronicity, unspecified site documented in this encounter Additional Health Concerns Assessment Noted Time PHQ-9 Depression Total Score: 4 10/31/19 10:32 AM EDT documented as of this encounter Care Teams Fitness Coach Relationship Specialty Start Date End Date Katrin Santoyo MD 230 [place] [address] PCP - General Internal Medicine 12/13/22 Edison Vieira MD [address] [place] [address] Pulmonary Disease 04/07/24 Joe Devi MD [address] [facility] 3rd [place] [address] Gastroenterology 04/07/24 Carito Roche DNP 10 [facility], [address] [place] [address] Nephrology 04/07/24 [employer] 04/11/24 documented as of this encounter
--- OUTSIDE RECORDS SUMMARY | 2024-07-11 15:15 | XMS_ITS | Encounter Summary ---
Author Organization [facility] Address [address] [place] [address] Care Team Providers Care Adult Probation Officer Name Role Phone Deep Pruitt JOHN Primary Care Provider Encounter Details Date Type Department Care Team (Late st Contact Info) Description 02/20/2017 Scanned Document [facility] [address] [place] [address] Francisco Veloz PA [address] [place] [phone] Social History Tobacco Use Types Packs/Day [...] documented as of this encounter Care Teams Adult Probation Officer Relationship Specialty Start Date End Date Deep Pruitt APRN PCP - General 05/22/19 documented as of this encounter
--- OUTSIDE RECORDS SUMMARY | 2024-07-11 15:15 | XMS_ITS | Encounter Summary ---
Author Organization [facility] Address [address] [place] [address] Care Team Providers Care Wire Coating Operator Metal Name Role Phone Deep Pruitt JOHN Primary Care Provider Encounter Details Date Type Department Care Team (Late st Contact Info) Description 04/05/2017 Scanned Document [facility] [address] [place], [place] [phone] Francisco Veloz PA [address] [place] [phone] Social History Tobacco Use Types Packs/Day [...] documented as of this encounter Care Teams Wire Coating Operator Metal Relationship Specialty Start Date End Date Deep Pruitt APRN PCP - General 05/22/19 documented as of this encounter
--- OUTSIDE RECORDS SUMMARY | 2024-07-11 15:15 | XMS_ITS | Encounter Summary ---
Author Organization [employer] Address [address] [facility] [address] 7[address] [place] [address] Care Team Providers Care Manager Therapy Name Role Phone Katrin Santoyo MD Primary Care Pro vider Edison Vieira MD Unavailable [phone] Joe Devi MD Unavailable [phone] Encounter Details Date Type Department Care Team (Latest Contact Info) Description 07/03/2024 Travel Social History Tobacco Use Types Packs/Day Years [...] t he electric, gas, oil or water [employer] threatened to shut off services in your [...] Description 07/16/2024 9:45 AM EDT Office Visit [facility] [address] [place] [phone] 08/22/2024 1:15 PM EDT Office Visit [facility] [address] [place] [address] Katrin Santoyo MD [address] [place] [address] documented as of this encounter Goals Goal [...] as of this encounter Care Teams Manager Therapy Relationship Specialty Start Date End Date Katrin Santoyo MD [address] [place] [address] PCP - General Internal Medicine 12/13/22 Edison Vieira MD [address] [place] [address] Pulmonary Disease 04/07/24 Joe Devi MD [address] 3rd [place] [address] Gastroenterology 04/07/24 Carito Roche DNP [address], [address] [place] [address] Nephrology 04/07/24 [employer] 04/11/24 documented as of this encounter
--- OUTSIDE RECORDS SUMMARY | 2024-07-11 15:16 | XMS_ITS | Encounter Summary ---
Author Organization [facility] Address [address] [place] [address] Care Team Providers Care Human Intelligence Name Role Phone Deep Pruitt APRN Primary Care Provider Encounter Details Date Type Department Care Team ([facility] st Contact Info) Description 10/26/2020 Scanned Document [facility] [address] [place], [place] [phone] Deep Pruitt APRN [address] [place] [address] Social History Tobacco Use Types [...] Answer Date Recorded PHQ-2 Score 2 07/07/2020 [facility] of Occupat ional [...] as of this encounter Care Teams Human Intelligence Relationship Specialty Start Date End Date Deep Pruitt APRN PCP - General 05/22/19 documented as of this encounter
--- OUTSIDE RECORDS SUMMARY | 2024-07-11 15:16 | XMS_ITS | Encounter Summary ---
Author Organization [facility] Address [address] [place] [address] Care Team Providers Care Credit Balance Specialist Name Role Phone Romelia Pruittian Niko LOPEZ Primary Care Provider Encounter Details Date Type Department Care Team (Late st Contact Info) Description 09/06/2021 Scanned Document [facility] [address] [place] [address] External, Provider Social History Tobacco Use Types [...] Date Recorded PHQ-2 Total Score 2 09/08/2021 [facility] of Occupat ional Health - [...] as of this encounter Care Teams Credit Balance Specialist Relationship Specialty Start Date End Date Deep Pruitt APRN PCP - General 05/22/19 documented as of this encounter
--- OUTSIDE RECORDS SUMMARY | 2024-07-11 15:16 | XMS_ITS | Encounter Summary ---
Author Organization [facility] Address [address] [place] [address] Care Team Providers Care Circulating Nurse Name Role Phone Deep Pruitt APRN Primary Care Provider Reason for Visit * Reason Comments Medication Refill Encounter Details Date Type Department Care Team ([facility] st Contact Info) Description 10/20/2020 Refill [facility] [address] [place], [place] [phone] Deep Pruitt APRN [address] [place] [address] Medication Refill Social History Tobacco [...] 2 07/07/2020 [facility] of Occupat ional Health - [...] documented as of this encounter Care Teams Circulating Nurse Relationship Specialty Start Date End Date Deep Pruitt APRN PCP - General 05/22/19 documented as of this encounter
--- OUTSIDE RECORDS SUMMARY | 2024-07-11 15:16 | XMS_ITS | Encounter Summary ---
Author Organization [facility] Address [address] [place] [address] Care Team Providers Care Vinyl Flooring Installer Name Role Phone Deep Pruitt APRN Primary Care Provider Reason for Visit * Reason Comments Medication Refill Encounter Details Date Type Department Care Team ([facility] st Contact Info) Description 11/11/2020 Refill [facility] [address] [place] [address] Deep Pruitt APRN [address] [place] [phone] Medication Refill Social History Tobacco Use [...] Answer Date Recorded PHQ-2 Score 2 07/07/2020 [facility] of Occupat ional [facility] - Occupational Stress Questionnaire Answer [...] documented as of this encounter Care Teams Vinyl Flooring Installer Relationship Specialty Start Date End Date Deep Pruitt APRN PCP - General 05/22/19 documented as of this encounter
--- OUTSIDE RECORDS SUMMARY | 2024-07-11 15:16 | XMS_ITS | Encounter Summary ---
Author Organization [facility] Address [address] [place] [address] Care Team Providers Care Human Resources Compensation Analyst Name Role Phone SpragueRomeliaDeep Niko LOPEZ Primary Care Provider Reason for Visit * Reason Onset Date Comments Medication Refill 10/12/2021 Encounter Details Date Type Department Care Team (Late st Contact Info) Description 10/12/2021 Refill [facility] [address] [place] [address] Cecile Oneal, DMD [address] [place] [address] Medication Refill Social History Tobacco [...] Date Recorded PHQ-2 Total Score 0 10/12/2021 [facility] of Occupat ional [...] of this encounter Care Teams Human Resources Compensation Analyst Relationship Specialty Start Date End Date Deep Pruitt APRN PCP - General 05/22/19 documented as of this encounter
--- OUTSIDE RECORDS SUMMARY | 2024-07-11 15:16 | XMS_ITS | Encounter Summary ---
Author Organization [facility] Address [address] [place] [address] Care Team Providers Care Ship'S Engineer Name Role Phone Deep Pruitt APRN Primary Care Provider Reason for Visit * Reason Comments Other Advice Only Encounter Details Date Type Department Care Team ([facility] Contact Info) Description 09/28/2021 Telephone [facility] [address] [place] [address] Deep Pruitt APRN [address] [place] [address] Other; Advice Only Social History [...] Date Recorded PHQ-2 Total Score 5 09/14/2021 [facility] of Occupat ional Health - Occupational [...] be given because his underlying condition. Patient [phone] documented in this encounter Plan of Treatment Not on file documented as of this encounter Visit Diagnoses Not on filedocumented in this encounter Additional Health Concerns Infection Onset Date Last Indicated Resolved Time COVID-19 09/29/2021 09/29/2021 10/19/2021 7:19 PM EDT Assessment Noted Time PHQ-9 Depression Total Score: 7 09/15/19 22 10:31 AM EDT documented as of this encounter Care Teams Ship'S Engineer Relationship Specialty Start Date End Date Deep Pruitt APRN PCP - General 05/22/19 documented as of this encounter
--- OUTSIDE RECORDS SUMMARY | 2024-07-11 15:16 | XMS_ITS | Encounter Summary ---
Author Organization [employer] Address [address] [facility] [address] 7t [place] [address] Care Team Providers Care Quilt Stuffer Name Role Phone Katrin Santoyo MD Primary Care Pro vider Edison Vieira MD Unavailable [phone] Joe Devi MD Unavailable [phone] Encounter Details Date Type Department Care Team (Late st Contact Info) Description 2024 11:20 AM EST Office Visit [facility] [address] [place] [address] Dhara Cardenas MD [address] [place] [address] Acute bronchitis, unspecified organism (Primary Dx); Influenza A Social History Tobacco Use Types Packs/Day Years [...] Sign Reading Time Taken Comments Blood Pressure 154/89 2024 10:44 AM EST Pulse 85 2024 10:44 AM EST Temperature 36.3 ??C (97.4 ??F) 2024 10:[address] Respiratory Rate - - Oxygen Saturation 99% 2024 10:44 AM EST Inhaled Oxygen Concentration - - Weight - - Height - - Body Mass Index - - documented in this encounter Progress Notes * Bushra Rizo RN - 2024 11:20 AM EST Pt presents to [facility] complaining of cough with phlegm, body aches, headache, and sore throat. Pt reports dizziness at times. Pt reports using albuterol inhaler for 2 days. Pt to be swabbed and is waiting to be seen by provider. * Dhara Cardenas MD - 2024 11:20 AM EST Subjective Patient ID: Darrel Cortes is a 54 y.o. male who presents for No chief complaint on file.. Cough This is a new problem. The current episode started yesterday. The problem has been gradually worsening. The problem occurs constantly. The cough is Productive of sputum. Associated symptoms include wheezing. Pertinent negatives include no chest pain, chills, ear congestion, ear pain, fever, headaches, heartburn, hemoptysis, myalgias, nasal congestion, postnasal drip or rash. He has tried a beta-agonist inhaler for the symptoms. The treatment provided mild relief. His past medical history is significant for asthma. Review of Systems Constitutional: Negative for chills and fever. HENT: Negative for ear pain and postnasal drip. Respiratory: Positive for cough and wheezing. Negative for hemoptysis. Cardiovascular: Negative for chest pain. Gastrointestinal: Negative for heartburn. Musculoskeletal: Negative for myalgias. Skin: Negative for rash. Neurological: Negative for headaches. Objective Physical Exam Constitutional: Appearance: Normal appearance. Cardiovascular: Rate and Rhythm: Normal rate and regular rhythm. Pulmonary: Effort: Pulmonary effort is normal. Breath sounds: Decreased air movement present. Decreased breath sounds and wheezing present. Neurological: General: No focal deficit present. Mental Status: He is alert. Psychiatric: Mood and Affect: Mood normal. Behavior: Behavior normal. Assessment/Plan Diagnoses and all orders for this visit: Acute bronchitis, unspecified organism Comments: Started on Prednisone 40mg daily for 5 days Started on Zithromax for 5 days Duoneb given in [facility]IC Advised to cont neb every 6 hrs Advised steam inhaltion Orders: - ipratropium-albuterol (Duo-Neb) 0.5-2.5 mg/3 mL nebulizer solution 3 mg Influenza A Comments: Comment: Started on Tamiflu and Mucinex Other orders - oseltamivir (Tamiflu) 75 MG capsule; Take 1 capsule (75 mg) by mouth 2 times daily for 5 days. - Dextromethorphan-guaiFENesin (Mucinex DM) 30-600 MG tablet sustained-release 12 hour; Use 1 tab TID documented in this encounter Miscellaneous Notes * Addendum Note - Robert Bernal MA - 2024 11:20 AM ESTAddended by: ROBERT YUSUF on: 2024 11:09 AM Modules accepted: Orders documented in this encounter Plan of Treatment Upcoming Encounters Date Type Department Care Team (Late st Contact Info) Description 07/16/2024 9:45 AM EDT Office Visit [facility] [address] [place] [address] 08/22/2024 1:15 PM EDT Office Visit [facility] [address] [place] [address] Katrin Santoyo MD [address] [place] [address] documented as of this encounter Goals Goal Patient Goal Type Associated Problems Recent Progress Patient-Stated? Author Blood Pressure < 140/90 Blood Pressure 143/84(2024 1:58 PM EST) No Eve Guzman PharmD Hemoglobin A1c < 7 Result Component 12.5(03/27/20 3:40 PM EST) No Eve Guzman PharmD documented as of this encounter Procedures Procedure Name Priority Date/Time Associated Diagnosis Comments POCT INFLUENZA A (ID NOW RAPID MOLECULAR) Routine 2024 11:09 AM EST Influenza A POCT INFLUENZA B (ID NOW RAPID MOLECULAR) Routine 2024 11:08 AM EST Influenza A POCT RAPID COVID ANTIGEN Routine 2024 11:08 AM EST Influenza A documented in this encounter Results * (ABNORMAL) Influenza A (ID NOW Rapid Molecular) (2024 11:09 AM EST) Influenza A Positive( A) Negative, Indeterminate [facility] Swab 2024 11:0 9 AM EST us Dhara Cardenas MD POINT OF CARE TEST ENTER/EDIT OR DERABLES Final Result [facility] [address] [place] [phone] [phone] * POCT Rapid COVID Ag (2024 11:08 AM EST) Rapid COVID Ag Negative Swab 2024 11:0 8 AM EST Dhara Cardenas MD POINT OF CARE TEST ENTER/EDIT OR DERABLES Final Result * Influenza B (ID NOW Rapid Molecular) (2024 11:08 AM EST) Influenza B Negative Negative, Indeterminate [facility] Swab 2024 11:0 8 AM EST Dhara Cardenas MD POINT OF CARE TEST ENTER/EDIT OR DERABLES Final Result [facility] [address] [place] [phone] documented in this encounter Visit Diagnoses Diagnosis Acute bronchitis, unspecified organism- Primary Influenza A Influenza with other respiratory manifestations documented in this encounter Administered Medications Inactive Administered Medications - up to 3 most recent administrations Medication Order MAR Action Action Date Dose Rate Site ipratropium-albuterol (Duo-Neb) 0.5-2.5 mg/3 mL nebulizer solution 3 mg 3 mg, Nebulization, Once, On Mon06/26/24 at 1100, For 1 doseIndications:Acute bronchitis, unspecified organism Given 2024 11:00 AM EST 3 mg documented in this encounter Additional Health Concerns Assessment Noted Time PHQ-9 Depression Total Score: 4 10/31/19 24 10:32 AM EDT documented as of this encounter Care Teams Quilt Stuffer Relationship Specialty Start Date End Date Katrin Santoyo MD [address] [place] [address] PCP - General Internal Medicine 12/13/22 Edison Vieira MD [address] [place] [address] Pulmonary Disease 04/07/24 Joe Devi MD [address] 3rd [place] [address] Gastroenterology 04/07/24 Carito Roche DNP [address], [address] [place] [address] Nephrology 04/07/24 [employer] [place] 04/11/24 documented as of this encounter
--- OUTSIDE RECORDS SUMMARY | 2024-07-11 15:16 | XMS_ITS | Encounter Summary ---
Author Organization [facility] Address [address] [place] [address] Care Team Providers Care Booky Name Role Phone Deep Pruitt APRN Primary Care Provider Reason for Visit * Reason Comments Medication Refill Encounter Details Date Type Department Care Team ([facility] st Contact Info) Description 09/23/2020 Refill [facility] [address] [place] [address] Deep Pruitt APRN [address] [place] [phone] Medication Refill Social History Tobacco Use [...] 2 07/07/2020 [facility] of Occupat ional [facility] - Occupational Stress Questionnaire Answer [...] documented as of this encounter Care Teams Booky Relationship Specialty Start Date End Date Deep Pruitt APRN PCP - General 05/22/19 documented as of this encounter
--- OUTSIDE RECORDS SUMMARY | 2024-07-11 15:16 | XMS_ITS | Encounter Summary ---
Author Organization [facility] Address [address] [place] [address] Care Team Providers Care Production Line Mechanic Name Role Phone Deep Pruitt APRN Primary Care Provider Reason for Visit * Reason Comments Medication Refill Encounter Details Date Type Department Care Team ([facility] st Contact Info) Description 11/24/2020 Telephone [facility] [address] [place] [address] Deep Pruitt APRN [address] [place] [address] Medication Refill Social History Tobacco [...] PHQ-2 Total Score 0 11/18/2020 [facility] of Occupat ional Health [...] of certain medication. Call back number is [phone] (amharic speaking) preferred pharmacy is [facility] [address] [address] documented in this encounter Plan [...] as of this encounter Care Teams Production Line Mechanic Relationship Specialty Start Date End Date Deep Pruitt APRN PCP - General 05/22/19 documented as of this encounter
--- OUTSIDE RECORDS SUMMARY | 2024-07-11 15:16 | XMS_ITS | Encounter Summary ---
Author Organization [facility] [employer] [facility] Address [address] [place] [phone] Care Team Providers Care Soft Shoe Dancer Name Role Phone Deep Pruitt APRN Primary Care Provider Reason for Visit * Reason Onset Date Comments Medication Refill 09/30/2021 Encounter Details Date Type Department Care Team (Late st Contact Info) Description 09/30/2021 Refill [facility] [address] [facility] [address] [facility] 2nd [place] [address] Rubin Valderrama, [facility] [address] [place] [phone] Medication Refill Social History Tobacco Use Types [...] Date Recorded PHQ-2 Total Score 5 09/14/2021 [facility] of Occupat ional [facility] - Occupational Stress Questionnaire Answer [...] but unknown at home. Defer to [facility] pharmacy team for antihypertensive management. Current [...]
--- OUTSIDE RECORDS SUMMARY | 2024-07-11 15:16 | XMS_ITS | Encounter Summary ---
Author Organization [employer] Address [address] [facility] 7t [place] [address] Care Team Providers Care Crm Coordinator Name Role Phone Katrin Santoyo MD Primary Care Pro vider Edison Vieira MD Unavailable [phone] Joe Devi MD Unavailable [phone] Reason for Visit * Reason Comments Med Refill Encounter Details Date Type Department Care Team ([facility] st Contact Info) Description 06/25/2024 Refill [facility] [address] [place] [phone] Katrin Santoyo MD [address] [place] [address] Social History Tobacco Use Types Packs/Day Years [...] Description 07/16/2024 9:45 AM EDT Office Visit [facility] [address] [place] [address] 08/22/2024 1:15 PM EDT Office Visit [facility] [address] [place] [address] Katrin Santoyo MD [address] [place] [address] documented as of this encounter Goals Goal [...] documented as of this encounter Care Teams Crm Coordinator Relationship Specialty Start Date End Date Katrin Santoyo MD [address] [place] [address] PCP - General Internal Medicine 12/13/22 Edison Vieira MD [address] [place] [address] Pulmonary Disease 04/07/24 Joe Devi MD [address] [facility] 3rd [place] [address] Gastroenterology 04/07/24 Carito Roche DNP [address] [facility], [address] [place] [address] Nephrology 04/07/24 [employer] 04/11/24 documented as of this encounter
--- OUTSIDE RECORDS SUMMARY | 2024-07-11 15:16 | XMS_ITS | Encounter Summary ---
Author Organization [facility] [facility] Address [address] [place] [phone] Care Team Providers Care Can Operator Name Role Phone Deep Pruitt APRN Primary Care Provider Reason for Visit * Reason Onset Date Comments Medication Refill 10/12/2021 Encounter Details Date Type Department Care Team (Late st Contact Info) Description 10/12/2021 Refill [facility] [address] [facility] [address] [facility] 2nd [place] [address] Taylor Malagon, [facility] [address] [place] [phone] Medication Refill Social History Tobacco Use Types [...] Date Recorded PHQ-2 Total Score 0 10/12/2021 [facility] of Occupat ional [facility] - Occupational Stress Questionnaire Answer Date Recorded [...] documented as of this encounter Care Teams Can Operator Relationship Specialty Start Date End Date Deep Pruitt APRN PCP - General 05/22/19 documented as of this encounter
--- OUTSIDE RECORDS SUMMARY | 2024-07-11 15:16 | XMS_ITS | Encounter Summary ---
Author Organization [facility] Address [address] [place] [address] Care Team Providers Care Sheltered Workshop Executive Director Name Role Phone Deep Pruitt APRN Primary Care Provider [phone] Reason for Visit * Reason Comments Medication Refill Encounter Details Date Type Department Care Team ([facility] st Contact Info) Description 11/05/2020 Refill [facility] [address] [place] [address] Deep Pruitt APRN [address] [place] [phone] Medication Refill Social History Tobacco Use [...] Answer Date Recorded PHQ-2 Score 2 07/07/2020 [facility] of Occupat ional [facility] - Occupational Stress Questionnaire Answer [...] documented as of this encounter Care Teams Sheltered Workshop Executive Director Relationship Specialty Start Date End Date Deep Pruitt APRN PCP - General 05/22/19 documented as of this encounter
--- OUTSIDE RECORDS SUMMARY | 2024-07-11 15:16 | XMS_ITS | Encounter Summary ---
Author Organization [facility] Address [address] [place] [address] Care Team Providers Care Mobility Architect Name Role Phone Deep Pruitt APRN Primary Care Provider Reason for Visit * Reason Comments Medication Problem Encounter Details Date Type Department Care Team ([facility] Contact Info) Description 10/11/2021 Telephone [facility] [address] [place] [address] Deep Pruitt APRN [address] [place] [address] Medication Problem Social History Tobacco [...] 0 10/12/2021 [facility] - [...] 08 of October Spoke to sissy via informatics educator #[id number] (patti) patient states she spoke to the [...] if patient medication can be resent to [facility] [place] [facility] [address] . Best contact: [phone] documented in this encounter Plan of Treatment Not on file documented as of this encounter Visit Diagnoses Not on filedocumented in this encounter Additional Health Concerns Infection Onset Date Last Indicated Resolved Time COVID-19 09/29/2021 09/29/2021 10/19/2021 7:19 PM EDT Assessment Noted Time PHQ-9 Depression Total Score: 0 10/08/19 22 1:27 PM EDT documented as of this encounter Care Teams Mobility Architect Relationship Specialty Start Date End Date Deep Pruitt APRN PCP - General 05/22/19 documented as of this encounter
--- OUTSIDE RECORDS SUMMARY | 2024-07-11 15:16 | XMS_ITS | Encounter Summary ---
Author Organization [facility] [employer] and [facility] Address [address] [place] [address] Care Team Providers Care Micromatic Hone Operator Name Role Phone Deep Pruitt APRN Primary Care Provider [phone] Reason for Visit * Reason Onset Date Comments Medication Refill 10/12/2021 Encounter Details Date Type Department Care Team (Late st Contact Info) Description 10/12/2021 Refill [facility] [address] [place] [address] Anahi Rossi, JOHN [address] [place] [address] Medication Refill Social History Tobacco [...] Date Recorded PHQ-2 Total Score 0 10/12/2021 [facility] ional [facility] [...] documented as of this encounter Care Teams Micromatic Hone Operator Relationship Specialty Start Date End Date Deep Pruitt APRN PCP - General 05/22/19 documented as of this encounter
--- OUTSIDE RECORDS SUMMARY | 2024-07-11 15:16 | XMS_ITS | Encounter Summary ---
Author Organization [facility] Address [address] [place] [address] Care Team Providers Care Carboy Filler Name Role Phone Romelia Pruittian Niko LOPEZ Primary Care Provider Encounter Details Date Type Department Care Team (Late st Contact Info) Description 09/08/2021 Scanned Document [facility] [address] [place] [address] External, Provider Social History Tobacco Use Types [...] Recorded PHQ-2 Total Score 2 09/08/2021 [facility] of Occupat ional Health - Occupational [...] documented as of this encounter Care Teams Carboy Filler Relationship Specialty Start Date End Date Deep Pruitt APRN PCP - General 05/22/19 documented as of this encounter
--- OUTSIDE RECORDS SUMMARY | 2024-07-11 15:16 | XMS_ITS | Encounter Summary ---
Author Organization [facility] Address [address] [place] [address] Care Team Providers Care Correction Worker Name Role Phone Deep Pruitt JOHN Primary Care Provider Reason for Visit * Reason Onset Date Comments Medication Refill 10/12/2021 Encounter Details Date Type Department Care Team (Late st Contact Info) Description 10/12/2021 Refill [facility] Nutrition at [address] [id number] Angie Mcghee MD [address] [place] [phone] Medication Refill Social History Tobacco Use Types [...] Recorded PHQ-2 Total Score 0 10/12/2021 [facility] of Occupat ional [...] documented as of this encounter Care Teams Correction Worker Relationship Specialty Start Date End Date Deep Pruitt APRN PCP - General 05/22/19 documented as of this encounter
--- OUTSIDE RECORDS SUMMARY | 2024-07-11 15:16 | XMS_ITS | Encounter Summary ---
Author Organization [facility] Address [address] [place] [address] Care Team Providers Care Supervisor Dehydrogenation Name Role Phone Deep Pruitt APRN Primary Care Provider Reason for Visit * Reason Comments Medication Refill Encounter Details Date Type Department Care Team ([facility] st Contact Info) Description 12/29/2020 Refill [facility] [address] [place] [address] Deep Pruitt APRN [address] [place] [phone] Medication Refill Social History Tobacco Use [...] as of this encounter Care Teams Supervisor Dehydrogenation Relationship Specialty Start Date End Date Deep Pruitt APRN PCP - General 05/22/19 documented as of this encounter
--- OUTSIDE RECORDS SUMMARY | 2024-07-11 15:16 | XMS_ITS | Encounter Summary ---
Author Organization [facility] Address [address] [place] [address] Care Team Providers Care Rib Bender Name Role Phone HutchinsonDeep medina Niko LOPEZ Primary Care Provider Reason for Visit * Reason Onset Date Comments Medication Refill 09/22/2021 Encounter Details Date Type Department Care Team (Late st Contact Info) Description 09/22/2021 Refill [facility] Nutrition at [address] [address] Zena Hines PA [address] [place] [phone] Medication Refill Social History Tobacco Use [...] Date Recorded PHQ-2 Total Score 5 09/14/2021 [facility] [...] is no longer seeing Zena Hines at [facility] for DM mangement. Nate, Katrin documented [...] documented as of this encounter Care Teams Rib Bender Relationship Specialty Start Date End Date Deep Pruitt APRN PCP - General 05/22/19 documented as of this encounter
--- OUTSIDE RECORDS SUMMARY | 2024-07-11 15:16 | XMS_ITS | Encounter Summary ---
Author Organization [facility] Address [address] [place] [address] Care Team Providers Care Mathematics Professor Name Role Phone Romelia Pruittian Niko LOPEZ Primary Care Provider Reason for Visit * Reason Comments Medication Refill Encounter Details Date Type Department Care Team ([facility] st Contact Info) Description 09/16/2021 Refill [facility] [address] [place] [address] Carlos Eduardo Joyner MD [address] [place] [phone] Medication Refill Social History Tobacco Use [...] Date Recorded PHQ-2 Total Score 5 09/14/2021 [facility] of Occupat ional Health - [...] documented as of this encounter Care Teams Mathematics Professor Relationship Specialty Start Date End Date Deep Pruitt APRN PCP - General 05/22/19 documented as of this encounter
--- OUTSIDE RECORDS SUMMARY | 2024-07-11 15:16 | XMS_ITS | Encounter Summary ---
Author Organization [facility] [employer] and [facility] Address [address] [place] [phone] Care Team Providers Care Disability Specialist Name Role Phone Deep Pruitt APRN Primary Care Provider Encounter Details Date Type Department Care Team (Latest Contact Info) Description 09/13/2021 Transcribed Orders [facility] Specimens [address] [place] [address] Deep Pruitt APRN [address] [place] [address] Encounter for routine screening for [...] Date Recorded PHQ-2 Total Score 5 09/14/2021 [facility] of Occupat ional Health - [...] - 3.900 ng/mL 09/13/2021 1:44 PM EDT [facility]ICINE Prostate Specific Antigen, Free (YH) 0.28 0.00 - 3.90 ng/mL 09/13/2021 1:44 PM EDT [facility] Comment:Prostate Specific An tigen, Free Percentage can not be calculated. PSA, Total value out of appropriate range. Blood Venipuncture / Unknown 09/09/2021 12:05 PM EDT 09/13/2021 10:48 AM EDT Narrative [facility] MEDICINE - 09/13/2021 1:44 [...] Pruitt APRN LAB BLOOD ORDERABLES Final Result [facility] MEDICINE [address] [place] [address] documented in this encounter Visit Diagnoses Diagnosis [...] documented as of this encounter Care Teams Disability Specialist Relationship Specialty Start Date End Date Deep Pruitt APRN PCP - General 05/22/19 documented as of this encounter
--- OUTSIDE RECORDS SUMMARY | 2024-07-11 15:16 | XMS_ITS | Encounter Summary ---
Author Organization [facility] and [facility] Address [address] [place] [address] Care Team Providers Care Teacher Of The Deaf Name Role Phone Deep Pruitt APRN Primary Care Provider Encounter Details Date Type Department Care Team (Latest Contact Info) Description 09/09/2021 Transcribed Orders [facility] [address] [place] [address] Deep Pruitt APRN [address] [place] [address] Encounter for routine screening for [...] Date Recorded PHQ-2 Total Score 2 09/08/2021 [facility] - Occupational Stress Questionnaire Answer [...] r Schedule TSH w/reflex to FT4 ([facility] LMW Q YH) Lab Routine Encounter for [...] care facility TSH W/REFLEX TO FT4 ([facility] LMW Q YH) Routine 09/09/2021 12:05 PM [...] prostate Routine general medical examination at a [facility] care facility ALBUMIN/CREATININE PANEL, URINE, RANDOM Routine 09/09/2021 11:01 AM EDT Encounter for routine screening for malformation using ultrasonics Special screening for malignant neoplasm of prostate Routine general medical examination at a [facility] care facility CBC WITH AUTO DIFFERENTIAL Routine 09/09/2021 10:58 AM EDT Encounter for routine screening for malformation using ultrasonics Special screening for malignant neoplasm of prostate Routine general medical examination at a [facility] care facility CBC AND DIFFERENTIAL Routine 09/09/2021 10:58 AM EDT Encounter for routine screening for malformation using ultrasonics Special screening for malignant neoplasm of prostate Routine general medical examination at a [facility] care facility HEMOGLOBIN A1C Routine 09/09/2021 10:58 AM EDT Encounter for routine screening for malformation using ultrasonics Special screening for malignant neoplasm of prostate Routine general medical examination at a health care facility documented in this encounter Results * PSA, total and free (09/09/2021 12:05 PM EDT) Prostate Specific Antigen, Total (YH) 0.578 0.000 - 3.900 ng/mL 09/13/2021 1:44 PM EDT [facility]IC[facility] Prostate Specific Antigen, Free (YH) 0.28 0.00 - 3.90 ng/mL 09/13/2021 1:44 PM EDT [facility] Comment:Prostate Specific An tigen, Free Percentage can not be calculated. PSA, Total value out of appropriate range. Blood Venipuncture / Unknown 09/09/2021 12:05 PM EDT 09/13/2021 10:48 AM EDT Narrative [facility] - 09/13/2021 1:44 [...] in the 2-4 ng/mL range. Deep Pruitt [facility] LAB BLOOD ORDERABLES Final Result Performing Organization Address City/State/[facility] Co de Phone Number [facility] [address] [place] [address] * (ABNORMAL) Comprehensive metabolic panel (09/09/2021 12:05 PM EDT) Sodium 140 136 - 144 mmol/L 09/09/2021 2:42 PM EDT [facility] Potassium 4.9 3.3 - 5.3 mmol/L 09/09/2021 2:42 PM EDT [facility] Chloride 101 98 - 107 mmol/L 09/09/2021 2:42 PM EDT [facility] CO2 27 20 - 30 mmol/L 09/09/2021 2:42 PM EDT [facility] Anion Gap 12 7 - 17 09/09/2021 2:42 PM EDT [facility] Glucose 148(H) 70 - 100 mg/dL 09/09/2021 2:42 PM EDT [facility] BUN 31(H) 6 - 20 mg/dL 09/09/2021 2:42 PM EDT [facility] Creatinine 1.40(H) 0.40 - 1.30 mg/dL 09/09/2021 2:42 PM EDT [facility] Calcium 9.5 8.8 - 10.2 mg/dL 09/09/2021 2:42 PM T [facility] BUN/Creatinine Ratio 22.1 8.0 - 23.0 0509/2021 2:42 PM EDT [facility] Total Protein 6.4(L) 6.6 - 8.7 g/dL 09/09/2021 2:42 PM EDT [facility] Albumin 3.6 3.6 - 4.9 g/dL 09/09/2021 2:42 PM T [facility] Total Bilirubin 0.2 <=1.2 mg/dL 09/09/2021 2:42 PM T [facility] Alkaline Phosphatase 135(H) 9 - 122 U/L 09/09/2021 2:42 PM T [facility] Alanine Aminotransferase (ALT) 40 9 - 59 U/L 09/09/2021 2:42 PM T [facility] Comment:Calcium dobesilate c an cause artificially low ALT results at therapeutic concentrations Aspartate Aminotransferase (AST) 33 10 - 35 U/L 09/09/2021 2:42 PM T [facility] Globulin 2.8 2.3 - 3.5 g/dL 09/09/2021 2:42 PM T [facility] A/G Ratio 1.3 1.0 - 2.2 09/09/2021 2:42 PM T [facility] AST/ALT Ratio 0.8 See Comment 09/09/2021 2:42 PM T [facility] Comment: Adult with mild elevations of transaminases (< 5 times upper limit of normal): AST/ALT > 2 suggests alcoholic liver injury AST/ALT < 1 suggests non-alcoholic fatty liver disease (NAFLD) [place] (healthy): AST/ALT can be > 3 on day 0 AST/ALT < 2 by day 5 The thresholds provided focus on the most common etiologies of elevated serum transaminase levels and the associated alteration of AST:ALT ratios; they are not intended to exclude other feasible and clinically appropriate possibilities eGFR (Afr Amer) >60 >60 mL/min/1.7 3m2 09/09/2021 2:42 PM EDT [facility] Comment: Values under 60mL/min/1.73m2 may indicate CKD if noted for ?? more than 3 months. eGFR is only valid if creatinine is at steady state. eGFR (NON -[place] Islander) 53 >60 mL/min/1.7 3m2 09/09/2021 2:42 PM EDT [facility] Comment: Values under 60mL/min/1.73m2 may indicate CKD if noted for ?? more than 3 months. eGFR is only valid if creatinine is at steady state. Blood Venipuncture / Unknown 09/09/2021 12:05 PM EDT 09/09/2021 12:05 PM EDT Deep Pruitt TREASURY AGENT LAB BLOOD ORDERABLES Final Result Performing Organization Address City/[facility]/ZIP Co de Phone Number [facility] [address] [place] [address] * TSH w/reflex to FT4 ( [facility] LMW Q YH) (09/09/2021 12:05 PM EDT) Thyroid Stimulating Hormone 3.640 See Comment ??IU/mL 09/09/2021 2:42 PM EDT [facility] Comment: Male & Non- Females: 0.270-4.200 ??IU/mL 1st Trimester: 0.110-3.480 ??IU/mL 2nd Trimester: 0.320-3.850 ??IU/mL Blood Venipuncture / Unknown 09/09/2021 12:05 PM EDT 09/09/2021 12:05 PM EDT Deep Pruitt TREASURY AGENT LAB BLOOD ORDERABLES Final Result Performing Organization Address City/[facility]/ZIP Co de Phone Number [facility] [address] [place] [address] * LDL cholesterol, direct (09/09/2021 12:05 PM EDT) LDL Direct 63 See Comment mg/dL 09/09/2021 2:41 PM EDT [facility] Comment: LDL Cholesterol (mg/dL) [...] Organization Address [facility]/ZIP Co de Phone Number [facility] [address] [place] [phone] [place] [address] * (ABNORMAL) Albumin/creatinine panel, urine, random (09/09/2021 11:01 AM EDT) Albumin, Urine, Random 1,616.3 Reference Range Not Established mg/L 09/09/2021 2:52 PM EDT [facility] Creatinine, Urine, Random 35 Reference Range Not Established mg/dL 09/09/2021 2:52 PM EDT [facility] Albumin/Creatin ine Ratio, Urine, Random 4,684.9(H ) <30.0 mg/g Cr 09/09/2021 2:52 PM EDT [facility] Comment: High albuminuria (formerly microalbuminuria): ??30-300 mg/g Cr Very high albuminuria (overt albuminuria): ? >300 mg/g Cr Urine Collection / Unknown 09/09/2021 11:01 AM EDT 09/09/2021 11:01 AM EDT Deep Pruitt APRN URINE ORDERABLES Final Resu lt Performing Organization Address [facility] Co de Phone Number [address] [address] [phone] * (ABNORMAL) CBC auto differential (09/09/2021 10:58 AM EDT) WBC 13.5(H) 4.0 - 11.0 x1000/??L 09/09/2021 2:16 PM EDT [facility] RBC 5.05 4.00 - 6.00 M/??L 09/09/2021 2:16 PM EDT [facility] Hemoglobin 13.9 13.2 - 17.1 g/dL 09/09/2021 2:16 PM EDT [facility] Hematocrit 46.10 38.50 - 50.00 % 09/09/2021 2:16 PM EDT [facility] MCV 91.3 80.0 - 100.0 fL 09/09/2021 2:16 PM EDT [facility] MCH 27.5 27.0 - 33.0 pg 09/09/2021 2:16 PM EDT [facility] MCHC 30.2(L) 31.0 - 36.0 g/dL 09/09/2021 2:16 PM EDT [facility] RDW-CV 15.1(H) 11.0 - 15.0 % 09/09/2021 2:16 PM EDT [facility] Platelets 298 150 - 420 x1000/??L 09/09/2021 2:16 PM EDT [facility] MPV 13.0(H) 8.0 - 12.0 fL 09/09/2021 2:16 PM EDT [facility] Neutrophils 63.6 39.0 - 72.0 % 09/09/2021 2:16 PM EDT [facility] Lymphocytes 22.5 17.0 - 50.0 % 09/09/2021 2:16 PM EDT [facility] Monocytes 9.2 4.0 - 12.0 % 09/09/2021 2:16 PM EDT [facility] Eosinophils 3.6 0.0 - 5.0 % 09/09/2021 2:16 PM EDT [facility] Basophil 0.4 0.0 - 1.4 % 09/09/2021 2:16 PM EDT [facility] Immature Granulocytes 0.7 0.0 - 1.0 % 09/09/2021 2:16 PM EDT [facility] nRBC 0.0 0.0 - 1.0 % 09/09/2021 2:16 PM EDT [facility] ANC(Abs Neutrophil Count) 8.60(H) 2.00 - 7.60 x 1000/??L 09/09/2021 2:16 PM EDT [facility] Absolute Lymphocyte Count 3.05 0.60 - 3.70 x 1000/??L 09/09/2021 2:16 PM EDT [facility] Monocyte Absolute Count 1.24(H) 0.00 - 1.00 x 1000/??L 09/09/2021 2:16 PM EDT [facility] Eosinophil Absolute Count 0.49 0.00 - 1.00 x 1000/??L 09/09/2021 2:16 PM EDT [facility] Basophil Absolute Count 0.06 0.00 - 1.00 x 1000/??L 09/09/2021 2:16 PM EDT [facility] Absolute Immature Granulocyte Count 0.10 0.00 - 0.30 x 1000/??L 09/09/2021 2:16 PM EDT [facility] Absolute nRBC 0.00 0.00 - 1.00 x 1000/??L 09/09/2021 2:16 PM EDT [facility] Blood Venipuncture / Unknown 09/09/2021 10:58 AM EDT 09/09/2021 10:58 AM EDT Deep Pruitt APRN LAB BLOOD ORDERABLES Final Result [facility] [address] [place] [address] * (ABNORMAL) Hemoglobin A1c (09/09/2021 10:58 AM EDT) Hemoglobin A1c 11.5(H) 4.0 - 5.6 % 09/10/2021 6:36 PM EDT [facility] Comment: Hemoglobin A1c [...] mg/dL 283 mg/dL 09/10/2021 6:36 PM EDT [facility] Comment: Estimated average glucose (eAG) is a calculated value designed to estimate ??the expected average blood glucose level throughout the day from a single ??measurement of ??glycated hemoglobin A1C (HbA1c) and follows the calculation proposed by the [place] [employer] (Diabetes Care 31: 1-6, 2008). It may have less accuracy in children, women and patients with certain erythrocyte disorders. Blood Venipuncture / Unknown 09/09/2021 10:58 AM EDT 09/09/2021 10:58 AM EDT Deep Pruitt APRN LAB BLOOD ORDERABLES Final Result [facility] [address] [place] [address] documented in this encounter Visit Diagnoses Diagnosis [...] as of this encounter Care Teams Teacher Of The Deaf Relationship Specialty Start Date End Date Deep Pruitt APRN PCP - General 05/22/19 documented as of this encounter
--- OUTSIDE RECORDS SUMMARY | 2024-07-11 15:16 | XMS_ITS | Encounter Summary ---
Author Organization [facility] Address [address] [place] [address] Care Team Providers Care Woodwinds Teacher Name Role Phone Deep Pruitt APRN Primary Care Provider Reason for Visit * Reason Comments Medication Refill Encounter Details Date Type Department Care Team ([facility] st Contact Info) Description 09/16/2021 Refill [facility] [address] [place] [address] Deep Pruitt APRN [address] [place] [phone] Medication Refill Social History Tobacco Use [...] Date Recorded PHQ-2 Total Score 5 09/14/2021 [facility] of Occupat ional [...] documented as of this encounter Care Teams Woodwinds Teacher Relationship Specialty Start Date End Date Deep Pruitt APRN PCP - General 05/22/19 documented as of this encounter
--- OUTSIDE RECORDS SUMMARY | 2024-07-11 15:16 | XMS_ITS | Encounter Summary ---
Author Organization [facility] Address [address] [place] [address] Care Team Providers Care Shellfish Sorter Name Role Phone Deep Pruitt APRN Primary Care Provider Encounter Details Date Type Department Care Team ([facility] st Contact Info) Description 11/14/2020 Scanned Document [facility] [address] [place], [place] [phone] Deep Pruitt APRN [address] [place] [address] Social History Tobacco Use Types [...] Date Recorded PHQ-2 Total Score 0 11/18/2020 [facility] of Occupat ional Health - [...] documented as of this encounter Care Teams Shellfish Sorter Relationship Specialty Start Date End Date Deep Pruitt APRN PCP - General 05/22/19 documented as of this encounter
--- OUTSIDE RECORDS SUMMARY | 2024-07-11 15:16 | XMS_ITS | Encounter Summary ---
Author Organization [employer] Address [address] [facility] 7 [place] [address] Care Team Providers Care Health Promotion Manager Name Role Phone Katrin Santoyo MD Primary Care Pro vider Edison Vieira MD Unavailable [phone] Joe Devi MD Unavailable [phone] Reason for Visit * Reason Comments Med Refill Encounter Details Date Type Department Care Team (Late st Contact Info) Description 2024 Refill [facility] [address] [place], [place] [phone] Katrin Santoyo MD [address] [place] [address] Social History Tobacco Use Types Packs/Day Years [...] Description 07/16/2024 9:45 AM EDT Office Visit [facility] [address] [place] [phone] 08/22/2024 1:15 PM EDT Office Visit [facility] [address] [place] [phone] Katrin Santoyo MD [address] [place] [phone] documented as of this encounter Goals Goal [...] as of this encounter Care Teams Health Promotion Manager Relationship Specialty Start Date End Date Katrin Santoyo MD [address] [place] [phone] PCP - General Internal Medicine 12/13/22 Edison Vieira MD [address] [place] [address] Pulmonary Disease 04/07/24 Joe Devi MD [address] 3rd [place] [address] Gastroenterology 04/07/24 Carito Roche DNP [address] [facility], [address] [place] [address] Nephrology 04/07/24 [employer] 04/11/24 documented as of this encounter
--- OUTSIDE RECORDS SUMMARY | 2024-07-11 15:16 | XMS_ITS | Encounter Summary ---
Author Organization [facility] [employer] and [facility] Address [address] [place] [phone] Care Team Providers Care Putty Worker Name Role Phone Deep Pruitt APRN Primary Care Provider Reason for Visit * Reason Onset Date Comments Medication Refill 09/30/2021 Encounter Details Date Type Department Care Team (Late st Contact Info) Description 09/30/2021 Refill [facility] at [address] [phone] [facility] 2nd [place] [address] Kaity Harris, ENVIRONMENTAL TECH [address] [place] [phone] Medication Refill Social History Tobacco Use Types [...] Recorded PHQ-2 Total Score 5 09/14/2021 [facility] - Occupational Stress Questionnaire Answer [...] documented as of this encounter Care Teams Putty Worker Relationship Specialty Start Date End Date Deep Pruitt APRN PCP - General 05/22/19 documented as of this encounter
--- OUTSIDE RECORDS SUMMARY | 2024-07-11 15:16 | XMS_ITS | Encounter Summary ---
Author Organization [facility] [employer] and [facility] Address [address] [place] [phone] Care Team Providers Care Pet Care Assistant Name Role Phone Deep Pruitt APRN Primary Care Provider Reason for Visit * Reason Onset Date Comments Medication Refill 09/20/2021 Encounter Details Date Type Department Care Team (Late st Contact Info) Description 09/20/2021 Refill [facility] [address] [facility] [address] [facility] 2nd [place] [address] Ricarda Du MD [address] [place] [phone] Medication Refill Social History Tobacco Use Types [...] Date Recorded PHQ-2 Total Score 5 09/14/2021 [facility] - [...] documented as of this encounter Care Teams Pet Care Assistant Relationship Specialty Start Date End Date Deep Pruitt APRN PCP - General 05/22/19 documented as of this encounter
--- OUTSIDE RECORDS SUMMARY | 2024-07-11 15:16 | XMS_ITS | Encounter Summary ---
Author Organization [facility] Address [address] [place] [address] Care Team Providers Care Professor Of Fine Art Name Role Phone Deep Pruitt APRN Primary Care Provider Reason for Visit * Reason Comments Other Appointment Encounter Details Date Type Department Care Team ([facility] Contact Info) Description 10/07/2021 Telephone [facility] [address] [place] [address] Deep Pruitt APRN [address] [place] [address] Other; Appointment Social History Tobacco [...] Date Recorded PHQ-2 Total Score 0 10/07/2021 [facility] - [...] after dropped call ,patient has virtual appt [phone] documented in this encounter Plan of Treatment Not on file documented as of this encounter Visit Diagnoses Not on filedocumented in this encounter Additional Health Concerns Infection Onset Date Last Indicated Resolved Time COVID-19 09/29/2021 09/29/2021 10/19/2021 7:19 PM EDT Assessment Noted Time PHQ-9 Depression Total Score: 0 10/08/19 22 1:27 PM EDT documented as of this encounter Care Teams Professor Of Fine Art Relationship Specialty Start Date End Date Deep Pruitt APRN PCP - General 05/22/19 documented as of this encounter
--- OUTSIDE RECORDS SUMMARY | 2024-07-11 15:16 | XMS_ITS | Encounter Summary ---
Author Organization [employer] Address 75 [facility] 7t [place] [address] Care Team Providers Care Shirt Creaser Name Role Phone Katrin Santoyo MD Primary Care Pro vider Edison Vieira MD Unavailable [phone] Joe Devi MD Unavailable [phone] Reason for Visit * Reason Onset Date Comments Med Refill 2024 Encounter Details Date Type Department Care Team ([facility] st Contact Info) Description 2024 Telephone [facility] [address] [place], [place] [phone] Katrin Santoyo MD [address] [place], [place] [phone] Med Refill Social History Tobacco Use Types Packs/Day [...] as of this encounter Miscellaneous Notes * Addendum Note - Shirin Hidalgo MD - 06/28/2024 1:37 PM ESTAddended by: SHIRIN HIDALGO on: 06/28/2024 01:37 PM Modules accepted: Orders * Telephone Encounter - Shirin Hidalgo MD - 06/28/2024 1:37 PM EST Refill for diclofenac gel sent. * Telephone Encounter - Taylor Thomas RN - 06/28/2024 9:51 AM EST TC placed to pt with S sports management professor James #[id number] to inquire as to the medication that the pt needs refills on. The pt was very vague and did not have an exact name of the medication but stated thatit was used topically for foot pain. Pt also stated that it was prescribed by a [employer] provider. RN called [facility] pharmacy who confirmed that the pt most likely needs a refill on the Diclofenac Sodium 1% gel. The pt has one refill remaining. This refill request will be sent to Dr. Hidalgo who is covering June Jarvis. * Telephone Encounter - Taylor Thomas RN - 2024 4:08 PM EST TC placed to pt but message was given that the wireless customer is not available. No VM set up to leave a message. Will re task this message for 06/27 for another attempt. * Telephone Encounter - Chantal Johnson - 2024 11:55 AM EST PT walked in stating that he needs refill for medication. PT does not know the name of medication nor how many milligrams the medication is. PT states this medication is for feet pain and to help with circulation. PT does not have any more left. PT would also like all medications to be refilled that are due. (Cannot say at this time which onesare needed, PT is not comprehendible) documented in this encounter Plan of Treatment Upcoming Encounters Date Type Department Care Team (Late st Contact Info) Description 07/16/2024 9:45 AM EDT Office Visit [facility] [address] [place] [phone] 08/22/2024 1:15 PM EDT Office Visit [facility] [address] [place] [address] Katrin Santoyo MD [address] [place] [phone] documented as of this encounter Goals Goal Patient Goal Type Associated Problems Recent Progress Patient-Stated? Author Blood Pressure < 140/90 Blood Pressure 143/84(2024 1:58 PM EST) No Piers-Gambl e, Eve, PharmD Hemoglobin A1c < 7 Result Component 12.5(03/27/20 3:40 PM EST) No Piers-Gambl eEve, PharmD documented as of this encounter Visit Diagnoses Diagnosis Chronic radicular lumbar pain documented in this encounter Additional Health Concerns Assessment Noted Time PHQ-9 Depression Total Score: 4 10/31/19 24 10:32 AM EDT documented as of this encounter Care Teams Shirt Creaser Relationship Specialty Start Date End Date Katrin Santoyo MD [address] [place] [address] PCP - General Internal Medicine 12/13/22 Edison Vieira MD [address] [place] [address] Pulmonary Disease 04/07/24 Joe Devi MD 11 [facility] 3rd [place] [address] Gastroenterology 04/07/24 Carito Roche DNP [address] [facility], [address] [place] [address] Nephrology 04/07/24 [facility] 04/11/24 documented as of this encounter
--- OUTSIDE RECORDS SUMMARY | 2024-07-11 15:16 | XMS_ITS | Encounter Summary ---
Author Organization [employer] Address 75 [facility] 7t [place] [address] Care Team Providers Care Grain Trimmer Name Role Phone Katrin Santoyo MD Primary Care Pro vider Edison Vieira MD Unavailable [phone] Joe Devi MD Unavailable [phone] Reason for Visit * Reason Comments Med Refill Encounter Details Date Type Department Care Team ([facility] st Contact Info) Description 07/03/2024 Refill [facility] [address] [place] [address] [phone] Katrin Santoyo MD [address] [place] [address] Social History Tobacco Use Types Packs/Day Years [...] Description 07/16/2024 9:45 AM EDT Office Visit [facility] MED[facility] [address] [place] [phone] 08/22/2024 1:15 PM EDT Office Visit [facility] MED[facility]INE [address] [place] [phone] Katrin Santoyo MD [address] [place] [phone] documented as of this encounter Goals Goal [...] as of this encounter Care Teams Grain Trimmer Relationship Specialty Start Date End Date Katrin Santoyo MD [address] [place] [address] PCP - General Internal Medicine 12/13/22 Edison Vieira MD [address] [place] [address] Pulmonary Disease 04/07/24 Joe Devi MD 11 [facility] 3rd [place] [address] Gastroenterology 04/07/24 Carito Roche DNP 10 [facility], [address] [place] [address] Nephrology 04/07/24 [employer] 04/11/24 documented as of this encounter
--- OUTSIDE RECORDS SUMMARY | 2024-07-11 15:16 | XMS_ITS | Encounter Summary ---
Author Organization [employer] Address [address] [facility] [address] 7t [place] [address] Care Team Providers Care Piano Professor Name Role Phone Katrin Santoyo MD Primary Care Pro vider Edison Vieira MD Unavailable [phone] Joe Devi MD Unavailable [phone] Encounter Details Date Type Department Care Team (Latest Contact Info) Description 07/02/2024 Travel Social History Tobacco Use Types Packs/Day [...] t he electric, gas, oil or water [employer] threatened to shut off services in your [...] 9:45 AM EDT Office Visit [facility] [address] [place] [address] [phone] 08/22/2024 1:15 PM EDT Office Visit [facility] [address] [place] [phone] Katrin Santoyo MD [address] [place] [phone] documented as of this encounter Goals Goal [...] documented as of this encounter Care Teams Piano Professor Relationship Specialty Start Date End Date Katrin Santoyo MD [address] [place] [address] PCP - General Internal Medicine 12/13/22 Edison Vieira MD [address] [place] [address] Pulmonary Disease 04/07/24 Joe Devi MD [address] 3rd [place] [address] Gastroenterology 04/07/24 Carito Roche DNP [address], [address] [place] [address] Nephrology 04/07/24 [employer] 04/11/24 documented as of this encounter
--- OUTSIDE RECORDS SUMMARY | 2024-07-11 15:16 | XMS_ITS | Encounter Summary ---
Author Organization [facility] [employer] and [facility] Address [address] [place] [phone] Care Team Providers Care Cath Lab Technologist Name Role Phone Deep Pruitt APRN Primary Care Provider Reason for Visit * Reason Onset Date Comments Medication Refill 09/22/2021 Encounter Details Date Type Department Care Team (Late st Contact Info) Description 09/22/2021 Refill [facility] at [address] [facility] [address] [facility] 2nd [place] [address] Kaity Harris, SITE PROMOTION AGENT [address] [place] [phone] Medication Refill Social History Tobacco Use Types [...] Date Recorded PHQ-2 Total Score 5 09/14/2021 [facility] - Occupational Stress Questionnaire [...] documented as of this encounter Care Teams Cath Lab Technologist Relationship Specialty Start Date End Date Deep Pruitt APRN PCP - General 05/22/19 documented as of this encounter
--- OUTSIDE RECORDS SUMMARY | 2024-07-11 15:16 | XMS_ITS | Encounter Summary ---
Author Organization [facility] Address [address] [place] [address] Care Team Providers Care Home Care Chaplain Name Role Phone Deep Pruitt APRN Primary Care Provider Reason for Visit * Reason Comments Medication Refill Encounter Details Date Type Department Care Team ([facility] st Contact Info) Description 11/11/2020 Refill [facility] [address] [place] [address] Deep Pruitt APRN [address] [place] [phone] Medication Refill Social History Tobacco Use [...] 07/07/2020 [facility] Occupat ional [facility] - Occupational Stress Questionnaire Answer [...] documented as of this encounter Care Teams Home Care Chaplain Relationship Specialty Start Date End Date Deep Pruitt APRN PCP - General 05/22/19 documented as of this encounter
--- OUTSIDE RECORDS SUMMARY | 2024-07-11 15:17 | XMS_ITS | Encounter Summary ---
Author Organization [facility] [employer] and [facility] Address [address] [place] [phone] Care Team Providers Care Carpentry Teacher Name Role Phone Romelia Pruittian Niko LOPEZ Primary Care Provider Encounter Details Date Type Department Care Team (Latest Contact Info) Description 08/10/2021 Transcribed Orders [facility] [address] [place] [address] Taylor Malagon, PAPERHANGER AND PAINTER [address] [place] [address] Stage 3a chronic kidney disease [...] Date Recorded PHQ-2 Total Score 4 07/13/2021 [facility] - [...] - 4.5 mg/dL 08/10/2021 10:26 AM EDT [facility] LABORATORY MEDICINE Blood Venipuncture / Unknown 08/10/2021 9:40 AM EDT 08/10/2021 9:56 AM EDT Taylor Malagon APRN LAB BLOOD ORDERABLES Fauzia guzman Result [facility] DEPART[facility] OF LABORATORY MEDICINE [address] [place] [address] documented in this encounter Visit Diagnoses Diagnosis Stage 3a chronic kidney disease (CKD) (HC Code)- Primary documented in this encounter Additional Health Concerns Infection Onset Date Last Indicated Resolved Time COVID-19 09/29/2021 09/29/2021 10/19/2021 7:19 PM EDT Assessment Noted Time PHQ-9 Depression Total Score: 11 022 2:28 PM EST documented as of this encounter Care Teams Carpentry Teacher Relationship Specialty Start Date End Date Deep Pruitt APRN PCP - General 05/22/19 documented as of this encounter
--- OUTSIDE RECORDS SUMMARY | 2024-07-11 15:17 | XMS_ITS | Encounter Summary ---
Author Organization [facility] [employer] and [facility] Address [address] [place] [phone] Care Team Providers Care Forestry Fire Aid Name Role Phone Deep Pruitt APRN Primary Care Provider Encounter Details Date Type Department Care Team (Late st Contact Info) Description 08/05/2021 Orders Only [facility] [address] [place] [address] Carolyn Marin MD [address] [place] [phone] Essential hypertension Social History Tobacco Use [...] Date Recorded PHQ-2 Total Score 4 07/13/2021 [facility] Occupat ional Health - Occupational [...] documented as of this encounter Care Teams Forestry Fire Aid Relationship Specialty Start Date End Date Deep Pruitt APRN PCP - General 05/22/19 documented as of this encounter
--- OUTSIDE RECORDS SUMMARY | 2024-07-11 15:17 | XMS_ITS | Clinical Summary ---
Author Organization [address] Address [address] [place] [id number] Care Team Providers Care Technical Manager Name Role Phone Deep Pruitt APRN [...] edema will order Compression sleeves today from [facility] today, Put on lower legs during [...] of insulin, Duration 99, Feeding difficulty R63.30 98586 mL 06/23/19 Active metFORMIN (GLUCOPHAGE) 1000 mg [...] AM with Arben Fountain DPM at the [facility] -Will f/u with Pt in a [...] appointment and was informed he can call [phone] to find a closer time Assessment & Plan (02/19/2022 1:59 PM EDT): -The Pt went to his Business And Services Instructor and was c/o right kidney pain for [...] worse at night - pathway utilized through [employer], patient eligible for molnupiravir, may benefit from [...] Ref. Range 04/07/2020 SPEP Interpretation Unknown ?? Odbnb-7-Wjymwetf Latest Ref Range: 0.2 - 0.3 g/dL 0.3 Oaswk-5-Uklequpp Latest Ref Range: 0.5 - 0.9 g/dL 1.1 (H) Interpretation Unknown Comment Only Abnormal Protein Band 2 Latest Ref Range: NONE DETECTED g/dL CANCELED Abnormal Protein Band 3 Latest Ref Range: NONE DETECTED g/dL CANCELED Anaa-3-Gcuinufz Latest Ref Range: 0.4 - 0.6 g/dL 0.5 Ybgc-2-Ubmnrwhi Latest Ref Range: 0.2 - 0.5 g/dL [...] 04/08/2020 17:50 ?? Ref. Range 04/07/2020 Free Barada Latest Ref Range: 3.3 - 19.4 mg/L 35.9 (H) Free Lambda Latest Ref Range: 5.7 - 26.3 mg/L 26.6 (H) Free Barada/Lambda Ratio Latest Ref Range: 0.26 - 1.65 [...] 15:12 Ref. Range 04/07/2020 SPEP Interpretation Unknown Srbzp-4-Aeacirlt Latest Ref Range: 0.2 - 0.3 g/dL 0.3 Erzdp-6-Vomsqdlw Latest Ref Range: 0.5 - 0.9 g/dL 1.1 (H) Interpretation Unknown Comment Only Abnormal Protein Band 2 Latest Ref Range: NONE DETECTED g/dL CANCELED Abnormal Protein Band 3 Latest Ref Range: NONE DETECTED g/dL CANCELED Bkrh-7-Pgxbiojx Latest Ref Range: 0.4 - 0.6 g/dL 0.5 Tkpt-5-Mizojifh Latest Ref Range: 0.2 - 0.5 g/dL [...] 04/08/2020 17:50 ?? Ref. Range 04/07/2020 Free Barada Latest Ref Range: 3.3 - 19.4 mg/L 35.9 (H) Free Lambda Latest Ref Range: 5.7 - 26.3 mg/L 26.6 (H) Free Barada/Lambda Ratio Latest Ref Range: 0.26 - 1.65 [...] of 04/08/2020 17:50 Ref. Range 04/07/2020 Free Barada Latest Ref Range: 3.3 - 19.4 mg/L 35.9 (H) Free Lambda Latest Ref Range: 5.7 - 26.3 mg/L 26.6 (H) Free Barada/Lambda Ratio Latest Ref Range: 0.26 - 1.65 [...] like to speak with his pcp first [phone] Phone Conversation with Pt over the phone: PCP called irish speaking (uncontrolled diabetic) Pt over the phone, [...] Tried to call the Pt using the Anguillan Interpretor [phone], V/M was not set up [...] have CC'd Ricarda Du MD, his primary lean leader. She has a phone consult with him [...] all the Pt medication bottle be in irish, Pt had a medication (allopurinoL (ZYLOPRIM) 100 mg tablet) error because he can not read in Gibraltarian, the Pt was prescribed 1/2 tab but [...] appointment to see me at the front counter attendant ?? Latest Reference Range & Units 09/09/21 12/15/21 BUN 7 - 25 mg/dL 31 (H) 29 (H) Creatinine 0.70 - 1.30 mg/dL 1.40 (H) 1.55 (H) BUN/Creatinine Ratio 6 - 22 (calc) 22.1 19 eGFR (NON -Stateless) >60 mL/min/1.73m2 53 eGFR (Afr Amer) >60 [...] Range: 8.0 - 23.0 22.1 eGFR (NON -Stateless) Latest Ref Range: >60 mL/min/1.73m2 53 eGFR [...] Taylor Malagon APRN at the Nephrology at [address] [place] [address], The Renal department is working on getting the Pt a 24 hour HTN monitor to assess the effectiveness of his recent medication changes, used irish interpretor [id number] ?? 07/13/2021 Renal Referral Note:?? Assessment and [...] effectiveness of his recent medication changes, used irish interpretor 9217 07/13/2021 Renal Referral Note: Assessment [...] given a referral to talk with the [facility] Pension Agent for further assessment of his current diet [...] and magnesium supplements that he said a maintenance and engineering manager told him were good for his [...] preparation for his first visit with a lean leader, Ricarda Du MD on 04/07/2020. Assessment & Plan (02/12/2020 2:18 PM EDT): Pt was recently in the hospital for Kidney issues, the Pt missed a previous Kidney appointment and will ask Pt to reschedule another Kidney appointment Date & Time 02/25/2020 10:00 AM Provider Taylor Malagon APRN Department [facility] at [address] [facility] Nephrology [address] [facility] 2nd Floor [facility] [address] Comment: Pt needs a Kidney referral due [...] 23 (H) 23 (H) 14.7 eGFR (NON -Stateless) Latest Ref Range: >60 mL/min/1.73m2 76 77 [...] (see MRI of Brain from 2017 under [facility] Multimedia -Significant deficits on neurologic exam Memory loss and Left handed weakness -Imaging and prior evaluation -Current blood thinning agents is aspirin -Potential details to include, when relevant: poor GAIT, uses a walker to get around -How the diagnosis was made: Pt lived in [facility] at the time, Under Multimedia in [facility] see specific file at specific date [id number] Image MRI Result [facility] - MRI BRAIN CVA -09/25/2016 [id number].TIF Image Evaluation [facility]- Left handed weakness note - 02/20/2017 ?? [...] a letter to be given to the [employer] advising stating that the Pt is disabled and needs help with housing Is there a form to be fill out from the [employer] advising that the Pt is disabled and needs help with housing t 03/26/21 Oksana Fox to Deep Pruitt NP Summary: Letters needed by patient This literary writer met with patient at the clinic today 03.26.21 per nurses request, to assistance with letters that the patient is requesting. This literary writer spoke to patient and patient is [...] Patient is also requesting a letter for [employer] advising that he is disabled. Patient stated that he has already applied for and wants this letter to help him get Housing CCM: 15 minutes 04/11/2021 Deep Pruitt APRN Assessment & Plan (05/31/2020 5:20 PM EST): Pt had a CVA from 2017 and needs Neuro clearance before getting a Colonoscopy Presumed etiology of prior stroke (see MRI of Brain from 2017 under [facility] Mult[facility] Significant deficits on neurologic exam Memory loss and Left handed weakness Imaging and prior evaluation Current blood thinning agents is aspirin Potential details to include, when relevant: poor GAIT, uses a walker to get around How the diagnosis was made: Pt lived in [facility] at the time, Under Multimedia in [facility] see specific file at specific date [id number] Image MRI Result [facility] - MRI BRAIN CVA -09/25/2016 [id number] Image Evaluation [facility]- Left handed weakness note - 02/20/2017 Required [...] is working with his Diabetic Specialist at [facility] and has an appointment next week, will increase his Gababentin to 800 mg PO TID which has helped with his neuropathic pain, Spent 25 mins with Pt using the Business Proposal Rep Microalbuminuric diabetic nephropathy (HC Code) (HC CODE) [...] Ricarda Du MD at the Nephrology at [address] [place] [address] Results for DARREL BHARDWAJ ( ) as [...] ) as of 09/19/2019 07:04 eGFR (NON -Stateless) Latest Ref Range: > OR = 60 [...] for Bariatric surgery and Pt needs a bundle breaker Assessment & Plan (09/10/2021 5:42 PM EDT): Pt has a BMI of 40.4 and is working with the wellness clinic to work on his weight loss plan, putting a referral in for Bariatric surgery and Pt needs a bundle breaker Assessment & Plan (09/26/2019 9:45 AM EDT): Pt has a BMI of 40.4 and is working with the wellness clinic to work on his weight loss plan, putting a referral in for Bariatric surgery and Pt needs a bundle breaker Assessment & Plan (09/09/2019 2:47 PM EDT): [...] whole encounter. The interview was conducted in Anguillan which is my [place]am i[place] language. I have encouraged Mr. Bhardwaj to contact us with any questions, concerns or clinical changes. Plan: 1. Continue current therapy. 2. No need for supplemental oxygen. Assessment & Plan (12/23/2021 12:10 PM EDT): -The Pt continues to feel like he is constantly SOB and is asking to be put on Oxygen PATTERN DATA OPERATOR -The Pt was given a list of labs to complete and once done then the Pt will be scheduled appointment with his Bag Machine Operator Helper -The Pt and the Bag Machine Operator Helper will decide together if the pt needs to be on O2 PATTERN DATA OPERATOR or not 08/18/2021 Pulmonary Note: Assessment: Mr. [...] ways in which he can request an police sergeant precinct over the phone and I am happy [...] complaints are out of proportion to seemingly kipd-ra-basmuget asthma and his dyspnea is likely multifactorial. [...] ways in which he can request an police sergeant precinct over the phone and I am happy [...] complaints are out of proportion to seemingly dnet-il-rahkstaf asthma and his dyspnea is likely multifactorial. [...] in collaboration with Dr. Deep Yo. ?? [facility] Quality Initiatives: ?? Tobacco counseling: Patient [...] allergies spent 20 mins with Pt using Anguillan Interpretor 1674 Assessment & Plan (11/14/2020 11:15 [...] 7 years for colon cancer screening purposes.??Used Anguillan interpretor 8245 Assessment & Plan (06/16/2021 10:23 [...] years for colon cancer screening purposes. Used Anguillan interpretor 8245 Assessment & Plan (09/13/2020 7:30 [...] years for colon cancer screening purposes. Used Anguillan interpretor 3293 Assessment & Plan (06/24/2020 4:13 PM EST): Pt was informed of the following message and told to call and was asked to call to make a colonoscopy appointment 06/03/20 12:29 PM Message from [facility] at [address] [place] [address] Called patient to cancel pre colon appointment, [...] the Pt had colonoscopy at [facility] in [facility] and was told to return in a [...] REPORT ? Patient: DARREL BHARDWAJ ?MR #: [id number] ([id number]) ?Submitted by: Hedy Haemed MD STOMACH, BIOPSY ??- GASTRIC ANTRAL MUCOSA [...] disordered breathing. RECOMMENDATIONS / PLAN : -Current Stateless [employer] recommendations for treatment of [...] Pt Called patient with Jose Rolon. Nancy #[id number]. Patient said that he has an old ResMed that he received in [place]. He doesn't know his mode or settings. Nor does he know his previous DME Assessment & Plan (09/10/2021 5:40 PM EDT): The Pt has an Sleep Apnea appointment on 09/24/2021 at??4:20 PM with Ryanne Ocasio MD at the Diabetes Center at [address] [facility] Assessment & Plan (09/24/2019 3:03 [...] spent 45 mins with Pt with a veterinary medicine teacher SLEEP STUDY - [facility] - [phone] Assessment & Plan (09/09/2019 3:22 PM EDT): Pt typically sleep 2.5 hours a night, Pt still has to return [place] sleep ap[place] machine to [place] before a sleep apnea clinic in [place] will talk to him, Pt has a BMI of 40.4 and PCP will put a referral in for sleep apnea for Pt today, spent 35 mins with Pt with a veterinary medicine teacher Diabetic foot (HC Code) (HC CODE) 02/07/2019 Assessment & Plan (06/24/2022 9:27 AM EST): The Pt continues to deal with bilateral foot pain and wears a pair of Diabetic shoes with specification ordered by his Ferryboat Operator Helper Doctor Assessment & Plan (05/31/2021 2:00 PM EST): The Pt continues to deal with bilateral foot pain and needs to get a pair of Diabetic shoes with specification ordered by his Ferryboat Operator Helper Doctor and will increase Gabapentin from 400 mg PO BID to 800 PO BID Assessment & Plan (01/04/2021 10:02 AM EDT): - recently seen in mid-December by Podiatry- note reviewed Assessment & Plan (10/14/2020 9:29 AM EDT): The Pt continues to deal with bilateral foot pain and needs to get a pair of Diabetic shoes with specification ordered by his Ferryboat Operator Helper Doctor see below: 08/26/2020 Podiatry Note: Bilateral [...] Also using his neuropathic compounding formula from [employer] as an adjunctive therapy and likes it [...] is working with his Diabetic Specialist at [facility] and has an appointment next week, will increase his Gababentin to 800 mg PO TID and assess effectiveness in one month Assessment & Plan (02/07/2019 6:48 AM EDT): Pt needs a Podiatry appointment due to toe nails need to be cut and Pt needs establish care with a Ferryboat Operator Helper for his annual diabetic foot care Diabetic eye exam 02/07/2019 Assessment & Plan (06/24/2022 9:29 AM EST): The Pt stated today that he saw his Eye Doctor, unable to see event in [facility] Assessment & Plan (09/18/2020 6:10 PM EDT): Pt has complaints of vision changes and he blew a blood vessel on his sclera, 3 years ago the Pt would see his Retina Doctor who did a lazer every 6 month, Pt needs a retinal eye referral 09/18/2020 Jeovanny Lynn: I put a referral in for the Pt and lately the [facility] has not been given dates for appointments [...] RN Sent to Deep Powersant Patient's Sissy Rosaels requesting a referral for ophthamology be issued for this patient. Previous referral has and now closed and a new one needs to be issued, to schedule appointment for an eye check up. Ms. Rosales states that patient is diabetic and is having blurry vision as well as heavy eyes, and is in need of seeing eye doctor [facility]. Patient can be reached at [phone]. Ms. Rosales can be reached at the same number [phone]. Thank you Deep Assessment & Plan (05/28/2020 [...] 2019, the Pt needs to call the [facility] [address] [phone] Assessment & Plan (10/14/2020 2:13 PM EDT): [...] (01/04/2019 4:02 PM EDT): Pt needs a Anguillan speaking Nurse to help him manage his [...] -Pt will be called biweekly by the [facility] Nurse to review his FBS finger [...] medications -He has been following with the [facility] team and reports taking all of [...] decided to move his family back to [facility] due to being closer to family [...] billing issues. He also was supposed to draft roller picker a Dexa scanner/sensor, but he was [...] (DEXCOM G6 SENSOR) device and scanner Asked Fermenting Cellars Receiver to schedule a 1/2 hour Nurse visit [...] 200-300 average, checks ACHS -Pt has his [facility] appt on 04/21/2022 at 11:30 AM [...] Pt will continues to go to his [facility] appointments to review his Dexcom G6 numbers and make appropriate medication changes -If all that happens then the Pt can also scan before each meal, switch from taking 30 units of prandial insulin to start a Sliding Scale -Will leave note with Pt's Stitcher Operator that the Pt needs to have Provider use a Business Proposal Rep due to his poor Gibraltarian skills -The Pt has received the Dexcom G6 supply chain vice president and scanner but still does not know [...] Pt will continues to go to his [facility] appointments to review his Dexcom G6 [...] EDT): -Met with Pt and with our [facility] RN who was able to translate [...] 190u??bid 2.Novolog 30??before meals + supplementary sliding -040-->4u, 200-249-->6u,??250-299-->8u, 300-349-->10u, >350-->12u 3.continue with ??trulicity 4.5 mg weekly, jardiance 25 mg daily and metformin 1000 mg bid 4.contact us in 1 week to report BG 5.Check BS 4X/day. Keep organized log and bring it next time.??Call [facility] for use of Dexcom CGM 6.Hypoglycemia management:??Carry [...] yes ?? Recommendations: #Diabetes: 1. Continue with [id number] 190u bid 2.Novolog 30 before meals + supplementary sliding scale ?150-199-->??4??units ?200-249-->??6??units ?250-299-->??8??units ?300-349-->??10units ?>350-->?12 3.continue with trulicity 4.5 mg weekly, jardiance 25 mg daily and metformin 1000 mg bid 4.contact us in 1 week to report BG 5.Check BS 4X/day. Keep organized log and bring it next time. Call [facility] for use of Dexcom CGM 6.Hypoglycemia management: [...] his painful foot issues -Will talk with [facility] Nurse about the Pt and support systems may not be compliant with taking meds and Insulin on a regular basis -Will work on bring the Pt's A1C down, it has been in the 's for the past year and Pt not wanting to see [facility] or [facility] Diabetic Specialist -Will have to set up [...] the Bariatric Doctor for weight loss -Used Business Proposal Rep # [id number] -Pt wished he could get his diabetic care restarted at the [facility] -Pt does not want to go to [facility] Diabetic Clinic or the [facility] clinic due to not feeling comfortable [...] Pt needs to be rescheduled with our [facility] Diabetic Clinic with Zena Hinse PA, the Pt did not like dealing with [facility] due to not feeling comfortable with the [facility] Providers and has had missed multiple appointments The Pt continues to deal with an elevated A1C, Pt wished he could get his diabetic care restarted at the [facility], will refer today ?? Results for DARREL BHARDWAJ ( ) as of 09/10/2021 17:20 ?? Ref. Range 12/10/2018 03/12/2020 01/07/2021 09/09/2021 Hemoglobin A1c Latest Ref Range: <5.7 % of total Hgb 10.8 (H) 10.4 (H) 11.6 (H) 11.3 (H) 09/30/21 10:41 AM Polly Hightwoer, RN Message from Ryanne Ocasio MD sent [...] MD sent at 09/30/2021 Regarding: RE: reschedule pad extractor tender appointment I think this is his 3rd [...] Ocasio MD at the Diabetes Center at [address] [place] [address], Pt wished he could get his diabetic care restarted at the [facility], Pt advised to go to his scheduled [...] LDL 90 01/25/2021 MALCRR 3,278 (H) 09/16/2019 Outpatient/ELECTRICAL PANEL BUILDER meds BLOOD GLUCOSE METER (AirwootUCH VERIO FLEX METER) device dulaglutide (TRULICITY) 4.5 mg/0.5 mL PnIj flash glucose (FREESTYLE ORTEGA 14 DAY) scanning reader FREESTYLE ORTEGA 14 DAY sensor kit insulin aspart (NOVOLOG FLEXPEN INSULIN) 100 unit/mL (3 mL) pen insulin regular human CONCENTRATED 500 units/mL (HUMULIN R U-500, CONC, KWIKPEN) injection pen JARDIANCE 25 mg tablet metFORMIN (GLUCOPHAGE) 1000 mg tablet - continues to see [facility] - recent finger stick readings 350, no symptoms of hyperglycemia - discussed with patient taking medications as prescribed as well as changing diet - recommended to reduce carb intake and simple carbs throughout the day and night and see if fasting glucose improved in morning - plans to see [facility] soon Assessment & Plan (04/23/2021 10:36 AM EST): The Pt continues to work with his [facility] Diabetic Specialist and stated that his Finger sticks range between 98-160, Pt needs to get additional labs to assess kidney fx and his diabetes Assessment & Plan (01/08/2021 1:21 PM EDT): The Pt continues to deal with elevated A1C and sees his Stitcher Operator on a regular basis Results for [...] and has a f/u appointment with his Stitcher Operator on 09/29/2020 08/27/2020 Endocrine referral: Assessment [...] his blood sugars. Could also consider insulin web pressman like pioglitazone at low dose. ?? Discussed [...] Krystle Santos RN Spoke with pharmacist at [facility], states if PCP will send scripts for [...] between 7 or 8 and talked through veterinary medicine teacher [phone] that the Pt has to have [...] to 110 and send message to his pipe recovery specialist Isha Carmen APRN??with [facility] Assessment & Plan (05/28/2020 3:01 [...] to 105 and send message to his pipe recovery specialist Isha Carmen APRN with [facility] ?? Assessment & Plan (04/08/2020 [...] the care of Isha Carmen APRN with [facility] and was last prescribed insulin [...] - 64 pg/mL 64.2 74 (H) Vitamin S51-Pfzwmvf Latest Ref Range: 20 - 50 ng/mL [...] Diabetic care will be transferred over to [facility] and he has the following [...] like to speak with his pcp first [phone] (irish speaking) Assessment & Plan (11/13/2019 7:10 PM [...] - 22 (calc) 23 (H) eGFR (NON -Stateless) Latest Ref Range: > OR = 60 [...] Pt is currently seeing our Diabetic Specialist PATTERN DATA OPERATOR at [facility], talking with PATTERN DATA OPERATOR on phone the Pt has developed an [...] 10, Pt needs to meet with the [facility] Nurse with the goal to bring [...] will continue to see Diabetic Clinic at [facility] for additional medication adjustments and will see [...] will continue to see Diabetic Clinic at [facility] and re-evaluate Pt care in one month [...] 6-8 weeks to be seen by his family literacy coordinator Dr. Newberry. ?? Attending Addendum: I have [...] that he is on this. I contacted [facility] pharmacy and they reported that on [...] call back to Fani Heath PharmD at [phone] 08/04/21 Fani Heath PharmD called Pt Called patient for scheduled pharmacist HTN visit. I was not able to reach patient and LVM requesting a call back. ID [id number] assisted call. Of note, appears patient was [...] Dr. Newberry and should be visible in [facility]. We would like you to please call [...] pain and dyspnea # h/o CVA (NOT TN -- historical charting error) # Dyslipidemia with [...] pain and dyspnea # h/o CVA (NOT TN -- historical charting error) # Dyslipidemia with [...] basis by his , will ask our [facility] Nurse to call Pt and verify [...] basis by his , will ask our [facility] Nurse to call Pt and verify [...] recent creatinine/potassium from 01/07 stable, recheck in [facility] this week Assessment & Plan (01/04/2021 [...] in one week to manage HTN, used director of corporate communications [phone], Pt denies experiencing any pain or tightness [...] EST): When the Pt was admitted to [facility] for [facility] they had stopped his Lisinopril [...] medication up weekly, spent 35 min with Business Proposal Rep [phone], will f/u with Pt in one month [...] needs to get all his meds in irish and has an appointment on 02/24/2020 02/24/2020 ??3:40 PM Provider Deep Pruitt APRN [facility] Assessment & Plan (02/22/2020 5:19 AM EDT): I see that Losartan help protect the kidneys from damage due to diabetes, I will discontinue the atenolol and start him at Losartan 25 mg and slowly titrate him up and the Pt needs to get all his meds in irish and has an appointment on 02/24/2020 02/24/2020 ??3:40 PM Provider Deep Pruitt APRN [facility] Assessment & Plan (03/16/2019 6:10 [...] (calc) 6.9 (H) The ASCVD Risk score ([place] WOODWARD Jr., et al., 2013) failed to calculate for the following reasons: The patient has a prior TN or stroke diagnosis Assessment & Plan (12/18/2018 [...] to call Pt with results seen below (Anguillan only please) -And let him know that his UTI results were negative and there is no reason for antibiotics 09/08/2021 PCP Note: Pt c/o burning with urination for the past 2 day, will ask Pt to do a urine culture before prescribing an Antibiotic medication used Anguillan interpretor [id number] 09/10/2021 PCP Addendum Note: The Pt has [...] the Pt had colonoscopy at [facility] in [facility] and was told to return in a year for further surveillance because he had several polyps removed, the concern is that the Pt had a CVA x 2 in 2017 and need Neuro clearance and the Neuro referral was put in today Assessment & Plan (11/13/2019 7:05 PM EDT): Pt had a Colonoscopy done in [facility] in [facility] one year ago and was told to [...] AM EDT): 01/02/2020 the 49 yo male (Anguillan speaking only) with a BMI of 39.6, last A1C Dec 2019 increased to 13.7, in 2017 the Pt had a right sided stroke (minimal residual speech and walking issues) and is working with our Diabetic PATTERN DATA OPERATOR Specialist to bring his sugars down, Pt [...] Plan (11/13/2019 7:08 PM EDT): Used a Business Proposal Rep 1305 for the entire 25 min visit, [...] with Pt in 1 weeks, used a Business Proposal Rep 2915 throughout the visit -10/23/2019 the Pt again [...] with Pt in 2 weeks, used a Business Proposal Rep Propio through out the visit Assessment & [...] (H) -Pt will be referred to the [facility] Pension Agent to assess if his current diet is [...] Perla Rice RN message to Deep Pruitt PATTERN DATA OPERATOR Call was returned to patient and his [...] input from his primary care physician and lean leader would be helpful. Considerations would include: stopping amlodipine, increasing diuretics, re-assessing labs for kidney function (e.g. is proteinuria worsening), and dietary interventions. Also counseled patient that weight loss would likely be helpful. I think his records management manager can be helpful with managing his [...] input from his primary care physician and lean leader would be helpful. Considerations would include: stopping amlodipine, increasing diuretics, re-assessing labs for kidney function (e.g. is proteinuria worsening), and dietary interventions. Also counseled patient that weight loss would likely be helpful. I think his records management manager can be helpful with managing his [...] plan for regular follow up with your records management manager, primary care physician, and lean leader ?? Follow-up: as needed with me ?? Other interventions: recommend keeping the legs elevated when sitting (try to get feet above the level of the heart to get the fluid to come down; also recommend new pair of custom graduated compression stockings - wear daily - please call [facility] for an appointment to be measured for the new stockings so they fit you well. [facility] [address] [place] [address], [place] [address] , PCP Notes: Will stop Amlodipine 5 mg PO QD and start Pt on Spirolactone 25 mg PO QD and assess in 2 weeks if Spirlactatone needs to be increased to 25 mg BID Will fax to [facility] order for Compression stocking and put contact info in AVS for the Pt to call and arrange for sizing CCM: 10 minutes 12/29/2020 Deep Pruitt APRN Assessment & Plan (06/24/2020 3:44 PM EST): 06/13/2020 the Pt had 2 pairs of Knee high compression stockings ordered and sent to [facility] and the Pt has to call [facility] so he can be measured and then pick them up when they arrive Assessment & Plan (06/13/2020 7:10 AM EST): Pt continues to deal with bilateral lower extremity edema will order Compression sleeves today from [facility] today, Put on lower legs during the day and take off at night, and wash and let dry and put on 2nd pair on the following day for Edema, lower extremity R60.0, will send to [facility] today Assessment & Plan (05/26/2020 5:58 [...] in 2 days at his next appointment [facility][id number] CCM: 20 minutes 05/26/2020 Deep [...] MD Department Ambulatory Surgical Specialties - Vascular [facility] [address] ??[place] [address] Assessment & Plan (01/30/2020 4:18 PM EDT): [...] EST): When the Pt was admitted to [facility] for [facility] they had stopped his Lisinopril [...] needs to get all his meds in irish, sued veterinary medicine teacher Mikhail Lore Administrative encounter 02/07/201909/2020 Assessment & Plan (02/07/2019 7:01 AM EDT): The Pt asked for a [place] State form Medical Report for Person who needs care , with Goal to have the Pt's partner as his pricing consultant, spent 10 mins filling it out Stroke [...] Never 05/19/2022 How often do you attend [facility] or religion services? More than 4 times per year [...] Date Recorded PHQ-2 Total Score 2 02/17/2022 [facility] [place] of Occupat ional Health - Occupational Stress [...] your living situation today? I have a [facility] to live 05/19/2022 Sex and Gender [...] 9:01 AM EDT Screening for prostate cancer IN PROPHYLAXIS - ADULT Routine 08/10/2021 10:45 AM EDT Encounter for dental exam and cleaning w/o abnormal findings IN BITEWINGS - FOUR RADIOGRAPHC IMAGES Routine 07/05/2021 10:30 AM EST Encounter for dental examination IN PERIODIC ORAL EVALUATION EST PT Routine 07/05/2021 10:30 AM EST Encounter for dental examination Oral frictional keratosis Partially edentulous mandible, unspecified edentulism class Secondary dental caries associated with failed or defective dental sabianist Dental caries on smooth surface penetrating into [...] Results * (ABNORMAL) POCT HgbA1c, total CPT: 04633 (06/23/2022 4:21 PM EST) Pathologist [facility] Hemoglobin A1C, POC 10.6 4.0 - 6.0 % [facility] Test Lot Number [id number] [facility] Test Lot Exp Date 09/18/22 Date Format: MM/DD/YYYY [facility] Blood specimen (specimen) 06/23/2022 4:21 PM EST Deep Pruitt APRN POINT OF CARE TEST ORDERABL ES Final Result Performing Organization Address [facility] Co de Phone Number [facility] * (ABNORMAL) LDL cholesterol, direct (03/14/2022 9:17 AM EST) Pathologist [facility] Direct LDL 101(H) <100 mg/dL [facility] [...] Comment Performing Lab: ?Site ID: [id number] ?Name: [employer] ?Address: [address] [place] [address], [place] [address] ?Director: Yadira Bowman M.D. Deep Pruitt APRN LAB BLOOD ORDERABLES Final Result Performing Organization Address City/[facility] Co de Phone Number [facility] [address] [place] [address] * (ABNORMAL) Albumin/creatinine panel, urine, random (02/15/2022 2:02 PM EDT) Pathologist [facility] Albumin, Urine, Random 1,885.3 Reference Range Not Established mg/L 02/15/2022 3:42 PM EDT [facility] Creatinine, Urine, Random 60 Reference Range Not Established mg/dL 02/15/2022 3:42 PM EDT [facility] Albumin/Creatin ine Ratio, Urine, Random 3,168.6(H ) <30.0 mg/g Cr 02/15/2022 3:42 PM EDT [facility] Comment: Moderately increased albuminuria (formerly microalbuminuria): ??30-300 mg/g Cr Significantly increased albuminuria (overt albuminuria): ? >300 mg/g Cr Urine Collection / Unknown 02/15/2022 2:02 PM EDT 02/15/2022 2:59 PM EDT Yue Dominguez DEBURRING TECHNICIAN URINE ORDERABLES Final Res ult Performing Organization Address City/State/[facility] Co de Phone Number [facility] [address] [place] [address] * PSA, total (Q) (09/09/2021 9:01 AM EDT) Pathologist [facility] Prostate Specific Antigen Total 0.44 < OR = 4.00 ng/mL [facility] Comment: The total PSA value from this assay system is standardized against the WHO standard. The test result will be approximately 20% lower when compared to the equimolar-standardized total PSA (Jana [place]). Comparison of serial PSA results should be [...] Comment Performing Lab: ?Site ID: [id number] ?Name: [employer] [facility] ?Address: [address] [place] [address], [facility], [place] [address] ?Director: Yadira Bowman M.D. us Deep Pruitt DEBURRING TECHNICIAN LAB BLOOD ORDERABLES Final Result [facility] [address] [place] [address], [facility] * Colonoscopy (09/03/2020 10:16 AM EDT) [facility] Endoscopy Patient Name: Darrel Bhardwaj ? Procedure Date: 09/03/2020 10:16 AM ?Date of : 1970 Age: 50 ? Admit Type: Outpatient Gender: Male ?CSN #: [id number] Note Status: Finalized ?Procedure Date no Time: [...] bowel preparation was evaluated using the BBPS ([place] ? Bowel Preparation Scale) with scores of: [...] Procedure Code(s): ?? --- Professional --- ? 41664, Colonoscopy, flexible; with biopsy, single or ? multiple Diagnosis Code(s): ?? --- Professional --- ? Z86.010, Personal history of colonic polyps ? D12.0, Benign neoplasm of cecum CPT copyright 2018 [employer]. All rights reserved. The codes documented in this report are preliminary and upon duco polisher review may be revised to meet current [...] In: 10:41:36 AM Scope Out: 10:58:33 AM [facility] 09/03/2020 10:1 6 AM EDT Provider Not In System GI PROCEDURE ORDERABLES F inal Result [facility] * Hepatitis C Ab with reflex to HCV PCR (02/06/2020 7:18 AM EDT) Hepatitis C Antibody Negative Negative 02/06/2020 4:21 PM EDT [facility] Comment:A negative result do es not exclude HCV infection, since antibodies are not detectable for 4-8 weeks after initial infection, or may not develop in compromised hosts. In high-risk individuals, repeat antibody testing in 2 months and/or HCV RNA PCR should be considered. Blood Venipuncture / Unknown 02/06/2020 7:18 AM EDT 02/06/2020 8:06 AM EDT Jordyn Reinier DEBURRING TECHNICIAN LAB BLOOD ORDERABLES Fauzia l Result Performing Organization Address City/[facility] Co de Phone Number [facility]IC[facility] [address] [place] [address] * HIV 1/2 ag/ab, w/reflexes (Q) (12/10/2018 [...] ?? For additional information please refer to http://education.[facility].com/faq/UKC504 (This link is being provided for informational/ educational purposes only.) The performance of this assay has not been clinically validated in patients less than 2 years old. Blood 12/10/2018 10:3 2 AM EDT 12/10/2018 10:32 AM EDT Carlos Eduardo Joyner MD LAB BLOOD ORDERABLES Fi nal Result [facility] [address] [place] [address] from Last 3 Months or Most Recently Relevant to Health Maintenance Insurance [place] Advance Directives * Full ACLS (Latest Code Status on File) Date Activated Date Inactivated Comments 02/04/2020 9:46 PM 02/07/2020 8:23 PM Question Answer Comments With Whom was the Code Status Discussed? Patient Care Teams Technical Manager Relationship Specialty Start Date End Date Deep Pruitt APRN PCP - General 05/22/19
--- OUTSIDE RECORDS SUMMARY | 2024-07-11 15:17 | XMS_ITS | Encounter Summary ---
Author Organization [facility] Address [address] [place] [address] Care Team Providers Care Audience Development Manager Name Role Phone Deep Pruitt APRN Primary Care Provider Reason for Visit * Reason Comments Medication Refill Encounter Details Date Type Department Care Team ([facility] st Contact Info) Description 09/17/2020 Refill [facility] [address] [place] [address] Deep Pruitt APRN [address] [place] [phone] Medication Refill Social History Tobacco Use [...] 2 07/07/2020 [facility] Occupat ional [facility] - Occupational Stress Questionnaire Answer [...] documented as of this encounter Care Teams Audience Development Manager Relationship Specialty Start Date End Date Deep Pruitt APRN PCP - General 05/22/19 documented as of this encounter
--- OUTSIDE RECORDS SUMMARY | 2024-07-11 15:17 | XMS_ITS | Encounter Summary ---
Author Organization [facility] Address [address] [place] [address] Care Team Providers Care Appliance Repair Technician Name Role Phone Romelia Pruittian Niko LOPEZ Primary Care Provider [phone] Encounter Details Date Type Department Care Team (Late st Contact Info) Description 08/09/2021 Scanned Document [facility] [address] [place] [address] External, Provider Social History Tobacco Use Types [...] Date Recorded PHQ-2 Total Score 4 07/13/2021 [facility] of Occupat ional Health [...] as of this encounter Care Teams Appliance Repair Technician Relationship Specialty Start Date End Date Deep Pruitt APRN PCP - General 05/22/19 documented as of this encounter
--- OUTSIDE RECORDS SUMMARY | 2024-07-11 15:17 | XMS_ITS | Encounter Summary ---
Author Organization [facility] Address [address] [place] [address] Care Team Providers Care Homicide Squad Captain Name Role Phone Deep Pruitt APRN Primary Care Provider Encounter Details Date Type Department Care Team ([facility] st Contact Info) Description 06/21/2022 Scanned Document [facility] [address] [place], [place] [phone] Deep Pruitt APRN [address] [place] [address] Social History Tobacco Use Types [...] you attend chur ch or yarsani services? More than 4 times per year [...] Date Recorded PHQ-2 Total Score 2 02/17/2022 [facility] - [facility]ational Stress Questionnaire Answer Date [...] your living situation today? I have a [facility] place to live 05/19/2022 Sex and Gender Information Value Date Recorded Sex Assigned at Male 12/10/2018 10:49 AM EDT Legal Sex Male 9:30 AM EST Gender Identity Male 12/10/2018 10:49 AM EDT Sexual Orientation Straight 12/10/2018 10 :49 AM EDT COVID-19 Exposure Response Date Recorded In the last 10 days, have wilmre u been in contact with someone who [...] documented as of this encounter Care Teams Homicide Squad Captain Relationship Specialty Start Date End Date Deep Pruitt APRN PCP - General 05/22/19 documented as of this encounter
== END ==
LOC: HO.SL 12:39
PROVIDERS: PCP Student in an Organized Health Care Education/Training Program; Visit Provider Internal Medicine Pulmonary Disease
DX: G47.33 Obstructive sleep apnea (adult) (pediatric) (principal)
CPT/HCPCS: 95806

== ENCOUNTER → 2024-07-11 13:13 | Outpatient (BNV) | payer MEDICAID, SELFPAY | PROVIDERS: PCP Student in an Organized Health Care Education/Training Program; Visit Provider Internal Medicine | DX: G47.33 Obstructive sleep apnea (adult) (pediatric) (principal) | CPT/HCPCS: 95806 ==

== ENCOUNTER 2024-07-23 08:29 | Outpatient (REF) | payer MEDICAID, SELFPAY ==
--- NOTE | ~2024-07-23 | US_ITS ---
EXAMINATION: US ABDOMEN COMPLETE WITH LIVER ELASTOGRAPHY HISTORY: I10 - Essential (primary) hypertension TECHNIQUE: Real-time grayscale ultrasound imaging of the abdomen was performed and images were reviewed. COMPARISON: Comparison is made with the prior examination dated 07/10/2023. FINDINGS: Liver: The right lobe of the liver measures 17.5 cm in size. The left lobe of the liver measures 14.6 cm in size. The liver demonstrates normal homogeneous echotexture. No focal mass or intrahepatic biliary ductal dilatation is identified. There is normal hepatopedal flow in the portal vein. Ultrasound elastography of the liver was performed with 10 separate measurements of the liver parenchyma with the patient in the supine position. Measurements were obtained approximately 2 cm below Lavonne's capsule and perpendicular to the capsule. Images are of satisfactory quality. The median shear wave velocity is 1.04 m/s. The interquartile range/median (IQR/median) is 0.18. Gallbladder and biliary tree: There is an 8 mm calculus in the gallbladder neck. There is no wall thickening or pericholecystic fluid. There is no sonographic Esparza sign. The common bile duct is normal in caliber measuring 6 mm. Kidneys: The right kidney measures 14.4 cm in length. The left kidney measures 14.1 cm in length. The kidneys are unremarkable, without evidence of masses, hydronephrosis, or calculi. Pancreas: The pancreatic head, neck, and body are unremarkable. The pancreatic tail is obscured by bowel gas. Spleen: The spleen is normal in size and contour, measuring 10.8 cm in length. Abdominal aorta and inferior vena cava: The visualized portions of the abdominal aorta and inferior vena cava are normal in caliber. There is no free fluid in the abdomen. US/US abdomen comp w elastography IMPRESSION: Hepatomegaly. Cholelithiasis without evidence of acute cholecystitis. The median shear wave velocity in the liver is 1.04 m/s, corresponding to a median liver stiffness of 3.2 kPa. The IQR/median value is 0.18. This is indicative of a poor quality data set, and the estimated liver stiffness may be unreliable. Findings are indicative of a normal elastography value with a low likelihood of severe fibrosis or cirrhosis. REFERENCE: Society of Radiologists in Ultrasound Liver Stiffness Thresholds (2020): LIVER STIFFNESS THRESHOLDS: *Shear wave velocity less than 1.3 m/s (Liver Stiffness equal or less than 5 kPa): High probability of being normal. *Shear wave velocity less than 1.7 m/s (Liver Stiffness less than 9 kPa): In the absence of other known clinical signs, rules out compensated advanced chronic liver disease. *Shear wave velocity between 1.7-2.1 m/s (Liver Stiffness 9-13 kPa): Suggestive of compensated advanced chronic liver disease but need further test for confirmation. *Shear wave velocity between 2.1-2.4 m/s (Liver Stiffness 13-17 kPa): Rules in compensated advanced chronic liver disease. *Shear wave velocity greater than 2.4 m/s (Liver Stiffness over 17 kPa): Suggestive of clinically significant portal hypertension. QUALITY OF DATA SET: *IQR/Median value equal or less than 0.15 implies a quality data set. *IQR/Median value over 0.15 implies a poor quality data set. SIGNIFICANT CHANGE FROM PRIOR EXAM: Significant change if liver stiffness measurement is 10% or greater from prior exam. OTHER CONSIDERATIONS: The stage of liver fibrosis may be overestimated in the setting of acute hepatitis, liver inflammation, elevated liver function tests, hepatic vascular congestion, obstructive cholestasis, non-fasting state, and infiltrative diseases such as amyloidosis and lymphoma. In some patients with NAFLD, the liver stiffness thresholds for compensated advanced chronic liver disease may be lower. In causes other than viral hepatitis and NAFLD, liver stiffness thresholds are not well established. Electronically signed by: Juvenal Caldera MD 07/23/2024 09:20 AM EDT
--- OUTSIDE RECORDS SUMMARY | 2024-07-23 08:42 | XMS_ITS | Encounter Summary ---
Author Organization [facility] Address [address] [place] [address] Care Team Providers Care Cashier Courtesy Booth Name Role Phone Deep Pruitt APRN Primary Care Provider Encounter Details Date Type Department Care Team (Late st Contact Info) Description 06/11/2021 Documentation [facility] [address] [facility], 2nd floor [facility], [address] [place], [place] [phone] Isha Brown APRN [address] [place] [address] Social History Tobacco Use Types [...] Date Recorded PHQ-2 Total Score 3 05/31/2021 [facility] of Occupat ional [...] documented as of this encounter Care Teams Cashier Courtesy Booth Relationship Specialty Start Date End Date Deep Pruitt APRN PCP - General 05/22/19 documented as of this encounter
--- OUTSIDE RECORDS SUMMARY | 2024-07-23 08:42 | XMS_ITS | Encounter Summary ---
Author Organization [facility] Address [address] [place] [phone] Care Team Providers Care Coverage Analyst Name Role Phone Deep Pruitt APRN Primary Care Provider [phone] Reason for Visit * Reason Comments DME Encounter Details Date Type Department Care Team ([facility] st Contact Info) Description 05/04/2022 Documentation Sleep Medicine Program at [address] [place] [phone] Jarad De Leon MD [address] [place] [phone] Social History Tobacco Use Types Packs/Day [...] documented as of this encounter Care Teams Coverage Analyst Relationship Specialty Start Date End Date Deep Pruitt APRN PCP - General 05/22/19 documented as of this encounter
--- OUTSIDE RECORDS SUMMARY | 2024-07-23 08:42 | XMS_ITS | Encounter Summary ---
Author Organization [facility] Address [address] [place] [address] Care Team Providers Care Woodworking Shop Hand Name Role Phone Deep Pruitt APRN Primary Care Provider [phone] Reason for Visit * Reason Comments Medication Refill Encounter Details Date Type Department Care Team ([facility] st Contact Info) Description 06/19/2020 Refill [facility] [address] [place] [address] Deep Pruitt APRN [address] [place] [phone] Medication Refill Social History Tobacco Use [...] documented as of this encounter Care Teams Woodworking Shop Hand Relationship Specialty Start Date End Date Deep Pruitt APRN PCP - General 05/22/19 documented as of this encounter
--- OUTSIDE RECORDS SUMMARY | 2024-07-23 08:42 | XMS_ITS | Encounter Summary ---
Author Organization [facility] Address [address] [place] [address] Care Team Providers Care Nurse Educator Name Role Phone Deep Pruitt APRN Primary Care Provider Reason for Visit * Reason Comments Medication Refill Encounter Details Date Type Department Care Team ([facility] st Contact Info) Description 06/19/2020 Refill [facility] [address] [place] [address] Deep Pruitt APRN [address] [place] [phone] Medication Refill Social History Tobacco Use [...] Answer Date Recorded PHQ-2 Score 0 03/13/2020 [facility] of Occupat ional Health - [...] as of this encounter Care Teams Nurse Educator Relationship Specialty Start Date End Date Deep Pruitt APRN PCP - General 05/22/19 documented as of this encounter
--- OUTSIDE RECORDS SUMMARY | 2024-07-23 08:42 | XMS_ITS | Encounter Summary ---
Author Organization [facility] Address [address] [place] [address] Care Team Providers Care Energy Director Name Role Phone Deep Pruitt APRN Primary Care Provider Reason for Visit * Reason Comments Medication Refill Encounter Details Date Type Department Care Team ([facility] st Contact Info) Description 06/07/2022 Refill [facility] [address] [place], [place] [phone] Deep Pruitt APRN [address] [place] [address] Medication Refill Social History Tobacco [...] you attend chur ch or islam services? More than 4 times per year [...] Date Recorded PHQ-2 Total Score 2 02/17/2022 [facility] of Occupat ional Health [...] your living situation today? I have a [facility] place to live 05/19/2022 Sex and [...] documented as of this encounter Care Teams Energy Director Relationship Specialty Start Date End Date Deep Pruitt APRN PCP - General 05/22/19 documented as of this encounter
--- OUTSIDE RECORDS SUMMARY | 2024-07-23 08:42 | XMS_ITS | Encounter Summary ---
Author Organization [facility] Address [address] [place] [address] Care Team Providers Care Personal Lines Insurance Agent Name Role Phone Deep Pruitt APRN Primary Care Provider Reason for Visit * Reason Comments Medication Refill Encounter Details Date Type Department Care Team (Late st Contact Info) Description 06/19/2020 Refill [facility] [address] [place], [place] [phone] Janel Cummins APRN [address] [place] [phone] Medication Refill Social History Tobacco Use Types [...] documented as of this encounter Care Teams Personal Lines Insurance Agent Relationship Specialty Start Date End Date Deep Pruitt APRN PCP - General 05/22/19 documented as of this encounter
--- OUTSIDE RECORDS SUMMARY | 2024-07-23 08:42 | XMS_ITS | Encounter Summary ---
Author Organization [facility] Address [address] [place] [address] Care Team Providers Care Automobile Washer Steam Name Role Phone Deep Pruitt JOHN Primary Care Provider Reason for Visit * Reason Comments Medication Refill Encounter Details Date Type Department Care Team (Late st Contact Info) Description 07/20/2020 Refill [facility] Podiatry at [address] [place] [phone] Arben Fountain, NOLVIA [address] [place] [address] Medication Refill Social History Tobacco Use [...] Answer Date Recorded PHQ-2 Score 2 07/07/2020 [facility] of Occupat ional Health [...] documented as of this encounter Care Teams Automobile Washer Steam Relationship Specialty Start Date End Date Deep Pruitt APRN PCP - General 05/22/19 documented as of this encounter
--- OUTSIDE RECORDS SUMMARY | 2024-07-23 08:42 | XMS_ITS | Encounter Summary ---
Author Organization [employer] Address [address] [facility] 7t [place] [address] Care Team Providers Care Twenty One Dealer Name Role Phone Katrin Santoyo MD Primary Care Pro vider Edison Vieira MD Unavailable [phone] Joe Devi MD Unavailable [phone] Encounter Details Date Type Department Care Team (Late st Contact Info) Description 07/19/2024 Population Health Risk Score [facility] (C3) Department [address] [facility] [address] [place] [phone] Provider, Population Health Generic Social History Tobacco Use Types Packs/Day Years [...] Care Team (Late st Contact Info) Description 08/13/2024 9:45 AM EDT Office Visit [facility] [address] [place] [address] 08/22/2024 1:15 PM EDT Office Visit [facility] [address] [place] [phone] Katrin Santoyo MD [address] [place] [address] documented as of this encounter Goals Goal Patient Goal Type Associated Problems Recent Progress Patient-Stated? Author Blood Pressure < 140/90 Blood Pressure 166/96(2024 4:42 PM EDT) No Piers-Gambl e, Eve, PharmD Hemoglobin A1c < 7 Result Component 12.5(03/27/20 3:40 PM EST) No Piers-Gambl e, Eve, PharmD documented as of this encounter Visit Diagnoses Not on filedocumented in this encounter Additional Health Concerns Assessment Noted Time PHQ-9 Depression Total Score: 4 10/31/19 10:32 AM EDT documented as of this encounter Care Teams Twenty One Dealer Relationship Specialty Start Date End Date Katrin Santoyo MD [address] [place] [address] PCP - General Internal Medicine 12/13/22 Edison Vieira MD [address] [place] [address] Pulmonary Disease 04/07/24 Joe Devi MD [address]rd [place] [address] Gastroenterology 04/07/24 Carito Roche DNP [address], [address] [place] [address] Nephrology 04/07/24 [employer] 04/11/24 documented as of this encounter
--- OUTSIDE RECORDS SUMMARY | 2024-07-23 08:42 | XMS_ITS | Encounter Summary ---
Author Organization [facility] Address [address] [place] [address] Care Team Providers Care Pewter Finisher Name Role Phone Deep Pruitt APRN Primary Care Provider Reason for Visit * Reason Comments Medication Refill Encounter Details Date Type Department Care Team ([facility] st Contact Info) Description 07/10/2020 Refill [facility] [address] [place] [address] Deep Pruitt APRN [address] [place] [phone] Medication Refill Social History Tobacco Use [...] [facility] of Occupat ional [facility] - Occupational Stress Questionnaire Answer Date Recorded [...] documented as of this encounter Care Teams Pewter Finisher Relationship Specialty Start Date End Date Deep Pruitt APRN PCP - General 05/22/19 documented as of this encounter
--- OUTSIDE RECORDS SUMMARY | 2024-07-23 08:42 | XMS_ITS | Encounter Summary ---
Author Organization [employer] Address [address] [facility] [address] 7t [place] [address] Care Team Providers Care Sticker On Name Role Phone Katrin Santoyo MD Primary Care Pro vider Edison Vieira MD Unavailable [phone] Joe Devi MD Unavailable [phone] Reason for Visit * Reason Comments Med Refill Encounter Details Date Type Department Care Team ([facility] st Contact Info) Description 02/11/2024 Refill [facility] [address] [place] [address] Moriah Herbert FNP [address] [place] [address] Chronic radicular lumbar pain Social History Tobacco [...] Description 08/13/2024 9:45 AM EDT Office Visit [facility] [address] [place] [address] 08/22/2024 1:15 PM EDT Office Visit [facility] [address] [place] [address] Katrin Santoyo MD [address] [place] [address] documented as of this encounter Goals Goal [...] documented as of this encounter Care Teams Sticker On Relationship Specialty Start Date End Date Katrin Santoyo MD [address] [place] [address] PCP - General Internal Medicine 12/13/22 Edison Vieira MD [address] [place] [address] Pulmonary Disease 04/07/24 Joe Devi MD [address] [facility] 3rd [place] [address] Gastroenterology 04/07/24 Carito Roche DNP 10 [facility], [address] [place] [address] Nephrology 04/07/24 [facility] 04/11/24 documented as of this encounter
--- OUTSIDE RECORDS SUMMARY | 2024-07-23 08:42 | XMS_ITS | Encounter Summary ---
Author Organization [employer] [facility] Address [address] [place] [address] Care Team Providers Care Drill Grinder Name Role Phone Deep Pruitt APRN Primary Care Provider Reason for Visit * Reason Comments Medication Refill Encounter Details Date Type Department Care Team ([facility] st Contact Info) Description 06/30/2021 Refill [facility] [address] [place], [place] [phone] Deep Pruitt APRN [address] [place] [address] Medication Refill Social History Tobacco [...] Date Recorded PHQ-2 Total Score 3 05/31/2021 [facility] ional Health [...] documented as of this encounter Care Teams Drill Grinder Relationship Specialty Start Date End Date Deep Pruitt APRN PCP - General 05/22/19 documented as of this encounter
--- OUTSIDE RECORDS SUMMARY | 2024-07-23 08:42 | XMS_ITS | Encounter Summary ---
Author Organization [facility] Address [address] [place] [address] Care Team Providers Care Air Conditioning Mechanic Name Role Phone Deep Pruitt APRN Primary Care Provider Reason for Visit * Reason Comments Other Encounter Details Date Type Department Care Team ([facility] Contact Info) Description 05/24/2022 Telephone [facility] [address] [place] [address] Deep Pruitt APRN [address] [place] [phone] Other Social History Tobacco Use Types [...] you attend chur ch or taoism services? More than 4 times per year [...] 2 02/[facility]2022 [facility] - Occupational Stress Questionnaire Answer Date [...] your living situation today? I have a [facility] place to live 05/19/2022 Sex and [...] AM EST Patient best call back number [phone]. Patient has an upcoming appt with his [...] documented as of this encounter Care Teams Air Conditioning Mechanic Relationship Specialty Start Date End Date Deep Pruitt APRN PCP - General 05/22/19 documented as of this encounter
--- OUTSIDE RECORDS SUMMARY | 2024-07-23 08:42 | XMS_ITS | Encounter Summary ---
Author Organization [facility] Address [address] [place] [address] Care Team Providers Care Tempering Machine Operator Name Role Phone Deep Pruitt APRN Primary Care Provider Encounter Details Date Type Department Care Team ([facility] st Contact Info) Description 06/25/2021 Telephone [facility] [address] [place] [address] Deep Pruitt APRN [address] [place] [address] Social History Tobacco Use Types [...] documented as of this encounter Care Teams Tempering Machine Operator Relationship Specialty Start Date End Date Deep Pruitt APRN PCP - General 05/22/19 documented as of this encounter
--- OUTSIDE RECORDS SUMMARY | 2024-07-23 08:42 | XMS_ITS | Encounter Summary ---
Author Organization [employer] Address [address] [facility] [address] 7t [place] [address] Care Team Providers Care Office Secretary Name Role Phone Katrin Santoyo MD Primary Care Pro vider Edison Vieira MD Unavailable [phone] Joe Devi MD Unavailable [phone] Encounter Details Date Type Department Care Team (Latest Contact Info) Description 07/16/2024 Travel Social History Tobacco Use Types Packs/Day [...] t he electric, gas, oil or water PhotoShelter threatened to shut off services in your [...] Description 08/13/2024 9:45 AM EDT Office Visit [facility] [address] [place] [address] [phone] 08/22/2024 1:15 PM EDT Office Visit [facility] [address] [place] [address] Katrin Santoyo MD [address] [place] [address] documented as of this encounter Goals Goal [...] as of this encounter Care Teams Office Secretary Relationship Specialty Start Date End Date Katrin Santoyo MD [address] [place] [address] PCP - General Internal Medicine 12/13/22 Edison Vieira MD [address] [place] [address] Pulmonary Disease 04/07/24 Joe Devi MD [address] 3rd [place] [address] Gastroenterology 04/07/24 Carito Roche DNP [address], [address] [place] [address] Nephrology 04/07/24 [facility] 04/11/24 documented as of this encounter
--- OUTSIDE RECORDS SUMMARY | 2024-07-23 08:42 | XMS_ITS | Encounter Summary ---
Author Organization [employer] [facility] Address [address] [place] [address] Care Team Providers Care Cnp Name Role Phone Deep Pruitt APRN Primary Care Provider Reason for Visit * Reason Comments Medication Refill Encounter Details Date Type Department Care Team ([facility] st Contact Info) Description 07/29/2020 Refill [facility] [address] [place], [place] [phone] Deep Pruitt, JOHN [address] [place] [phone] Medication Refill Social History Tobacco Use [...] Answer Date Recorded PHQ-2 Score 2 07/07/2020 [facility] - Occupational Stress Questionnaire Answer Date [...] documented as of this encounter Care Teams Cnp Relationship Specialty Start Date End Date Deep Pruitt APRN PCP - General 05/22/19 documented as of this encounter
--- OUTSIDE RECORDS SUMMARY | 2024-07-23 08:42 | XMS_ITS | Encounter Summary ---
Author Organization [facility] Address [address] [place] [address] Care Team Providers Care Ultrasound Specialist Name Role Phone Deep Pruitt APRN Primary Care Provider Encounter Details Date Type Department Care Team ([facility] st Contact Info) Description 06/13/2020 Scanned Document [facility] [address] [place], [place] [phone] Deep Pruitt APRN [address] [place] [address] Social History Tobacco Use Types [...] Answer Date Recorded PHQ-2 Score 0 03/13/2020 [facility] of Occupat ional Health - Occupational Stress [...] documented as of this encounter Care Teams Ultrasound Specialist Relationship Specialty Start Date End Date Deep Pruitt APRN PCP - General 05/22/19 documented as of this encounter
--- OUTSIDE RECORDS SUMMARY | 2024-07-23 08:42 | XMS_ITS | Encounter Summary ---
Author Organization [facility] Address [address] [place] [address] Care Team Providers Care Wood Preserving Plant Laborer Name Role Phone SonalDeep Niko LOPEZ Primary Care Provider Reason for Visit * Reason Comments Medication Refill Encounter Details Date Type Department Care Team (Late st Contact Info) Description 07/03/2020 Refill [facility] Nutrition at [address] [address] Zena Hines PA [address] [place] [phone] Medication Refill Social History Tobacco Use [...] for Metformin received. Pt was engaging with [facility] and continues with PCP. Unclear [...] as of this encounter Care Teams Wood Preserving Plant Laborer Relationship Specialty Start Date End Date Deep Pruitt APRN PCP - General 05/22/19 documented as of this encounter
--- OUTSIDE RECORDS SUMMARY | 2024-07-23 08:42 | XMS_ITS | Encounter Summary ---
Author Organization [employer] Address [address] [facility] [address] 7[address] [place] [address] Care Team Providers Care Generator Assembler Name Role Phone Katrin Santoyo MD Primary Care Pro vider Edison Vieira MD Unavailable [phone] Joe Devi MD Unavailable [phone] Reason for Visit * Reason Comments Walk-In diarrhea, stomach pa in Encounter Details Date Type Department Care Team (Late st Contact Info) Description 07/17/2024 5:00 PM EDT Office Visit [facility] [address] [place], [place] [phone] Cleo Reynoso FNP [address] [place], [place] [phone] Diarrhea, unspecified type (Primary Dx) Social History Tobacco Use Types [...] Sign Reading Time Taken Comments Blood Pressure 166/96 07/17/2024 4:42 PM EDT pt reports no chest pain, palpitations, or SOB Pulse 92 07/17/2024 4:42 PM EDT Temperature 36.8 ??C (98.2 ??F) 07/17/2024 4 :42 PM EDT Respiratory Rate 20 07/17/2024 4:42 PM EDT Oxygen Saturation 96% 07/17/2024 4:4 2 PM EDT Inhaled Oxygen Concentration - - Weight 124 kg (274 lb 3.2 oz) 07/17/2024 4:42 PM EDT Height 172.7 cm (5' 8 ) 07/17/2024 4:42 PM EDT Body Mass Index 41.69 07/17/2024 4:42 PM EDT documented in this encounter Progress Notes * Cleo Reynoso, HAYLEE - 07/17/2024 5:00 PM EDT Subjective Patient ID: Darrel Cortes is a 54 y.o. male who presents for Walk-In (diarrhea, stomach pain). Building Serviceman (Carin) present and served as roving weight gauger during visit. Darrel reports he has not been feeling well x 3 days. His daughter was ill now he and his son are both not feeling well and having same sx as his daughter. He reports his daughter was dx with norovirus. He states he is having diarrhea 5 x daily for the past 3 days. Appetite doing well, able to tolerate food. No nausea, vomiting, or fever. Has not tried any medications at this time. Denies starting any new medication and denies eating new foods. Diarrhea Quality: Watery Severity: Moderate Onset quality: Sudden Duration: 3 days Progression: Unchanged Relieved by: None tried Worsened by: Nothing Ineffective treatments: None tried Associated symptoms: no abdominal pain, no chills, no fever, no headaches and no vomiting Risk factors: sick contacts Risk factors: no suspicious food intake Review of Systems Constitutional: Negative for activity change, appetite change, chills, fatigue and fever. HENT: Negative for congestion, nosebleeds, postnasal drip, rhinorrhea, sneezing and sore throat. Eyes: Negative for pain and discharge. Respiratory: Negative for cough, chest tightness, shortness of breath and wheezing. Cardiovascular: Negative for chest pain, palpitations and leg swelling. Gastrointestinal: Positive for diarrhea. Negative for abdominal pain, constipation, nausea and vomiting. Endocrine: Negative for polydipsia, polyphagia and polyuria. Genitourinary: Negative for dysuria and flank pain. Musculoskeletal: Negative. Skin: Negative for rash and wound. Neurological: Negative for weakness and headaches. Hematological: Negative for adenopathy. Psychiatric/Behavioral: Negative for agitation. The patient is not nervous/anxious. Objective BP (!) 166/96 (BP Location: Left arm, Patient Position: Sitting, BP Cuff Size: Adult) Comment: pt reports no chest pain, palpitations, or SOB Pulse 92 Temp 98.2 ??F (36.8 ??C) (Oral) Resp 20 Ht 5' 8 (1.727 m) Wt 274 lb 3.2 oz (124 kg) SpO2 96% BMI 41.69 kg/m?? Physical Exam Constitutional: Appearance: Normal appearance. HENT: Head: Normocephalic. Right Ear: External ear normal. Left Ear: External ear normal. Nose: Nose normal. Eyes: Conjunctiva/sclera: Conjunctivae normal. Cardiovascular: Rate and Rhythm: Normal rate and regular rhythm. Pulmonary: Effort: Pulmonary effort is normal. Breath sounds: Normal breath sounds. Abdominal: Tenderness: There is abdominal tenderness. There is no right CVA tenderness, left CVA tenderness, guarding or rebound. Musculoskeletal: General: Normal range of motion. Cervical back: Normal range of motion and neck supple. Skin: General: Skin is warm and dry. Neurological: General: No focal deficit present. Mental Status: He is alert and oriented to person, place, and time. Psychiatric: Thought Content: Thought content normal. Assessment/Plan Diagnoses and all orders for this visit: Diarrhea, unspecified type Drink increased liquids that have water, salt, and sugar. Good choices are water mixed with juice, flavored soda, and soup broth. Ensure drinking enough fluids (urine will be light yellow or almost clear). Try to eat food such as potatoes, noodles, rice, oatmeal, crackers, bananas, soup, and boiled vegetables. Salty foods also help. Foods with high fat content should be avoided until the gut function returns to normal Immodium ordered Red flags reviewed Return to [facility] if sx worsen or persist Other orders - loperamide (Imodium A-D) 2 MG tablet; Take 1-2 tablets (2-4 mg) by mouth if needed in the morning, at noon, in the evening, and at bedtime for diarrhea for up to 10 days. documented in this encounter Plan of Treatment Upcoming Encounters Date Type Department Care Team (Late st Contact Info) Description 08/13/2024 9:45 AM EDT Office Visit [facility] [address] [place] [address] 08/22/2024 1:15 PM EDT Office Visit [facility] [address] [place] [address] Katrin Santoyo MD [address] [place] [address] documented as of this encounter Goals Goal Patient Goal Type Associated Problems Recent Progress Patient-Stated? Author Blood Pressure < 140/90 Blood Pressure 166/96(2024 4:42 PM EDT) No Eve Guzman PharmD Hemoglobin A1c < 7 Result Component 12.5(03/27/20 3:40 PM EST) Eve Merida PharmD documented as of this encounter Visit Diagnoses Diagnosis Diarrhea, unspecified type- Primary documented in this encounter Additional Health Concerns Assessment Noted Time PHQ-9 Depression Total Score: 4 10/31/19 24 10:32 AM EDT documented as of this encounter Care Teams Generator Assembler Relationship Specialty Start Date End Date Katrin Santoyo MD [address] [place] [address] PCP - General Internal Medicine 12/13/22 Edison Vieira MD [address] [place] [address] Pulmonary Disease 04/07/24 Joe Devi MD [address] [place] [address] 3rd [place] [address] Gastroenterology 04/07/24 Carito Roche DNP [address] [facility], [address] [place] [address] Nephrology 04/07/24 [facility] 04/11/24 documented as of this encounter
--- OUTSIDE RECORDS SUMMARY | 2024-07-23 08:43 | XMS_ITS | Encounter Summary ---
Author Organization [facility] Address [address] [place] [address] Care Team Providers Care Emergency Medicine Nurse Practitioner Name Role Phone Sonal Deep Niko LOPEZ Primary Care Provider [phone] Reason for Visit * Reason Comments Medication Refill Encounter Details Date Type Department Care Team ([facility] st Contact Info) Description 05/05/2021 Refill [facility] [address] [place] [address] [phone] Aliya Pond, [address] [address] Medication Refill Social History Tobacco [...] Date Recorded PHQ-2 Total Score 0 04/21/2021 [facility] - Occupational Stress Questionnaire Answer [...] documented as of this encounter Care Teams Emergency Medicine Nurse Practitioner Relationship Specialty Start Date End Date Deep Pruitt APRN PCP - General 05/22/19 documented as of this encounter
--- OUTSIDE RECORDS SUMMARY | 2024-07-23 08:43 | XMS_ITS | Encounter Summary ---
Author Organization [facility] Address [address] [place] [address] Care Team Providers Care Dietitian Teacher Name Role Phone Deep Pruitt APRN Primary Care Provider Reason for Visit * Reason Comments Medication Problem Encounter Details Date Type Department Care Team ([facility] st Contact Info) Description 12/21/2021 Refill [facility] [address] [place] [address] Deep Pruitt APRN [address] [place] [address] Medication Problem Social History Tobacco [...] Date Recorded PHQ-2 Total Score 4 12/20/2021 [facility]at ional Health [...] updated information the water pill. Call back [phone] * Telephone Encounter - Sarah Newman - 12/21/2021 1:05 PM EDT Best contact: [phone] Patient Sissy called and stated that she contacted [facility] on and they informed that the [...] documented as of this encounter Care Teams Dietitian Teacher Relationship Specialty Start Date End Date Deep Pruitt APRN PCP - General 05/22/19 documented as of this encounter
--- OUTSIDE RECORDS SUMMARY | 2024-07-23 08:43 | XMS_ITS | Encounter Summary ---
Author Organization [facility] Address [address] [place] [address] Care Team Providers Care Operator Helper Name Role Phone Romelia Pruittian Niko LOPEZ Primary Care Provider Reason for Visit * Reason Onset Date Comments Medication Refill 11/19/2021 Encounter Details Date Type Department Care Team (Late st Contact Info) Description 11/19/2021 Refill [facility] [address] [place] [address] [phone] Carlos Eduardo Joyner MD [address] [place] [phone] Medication Refill Social History Tobacco Use [...] Date Recorded PHQ-2 Total Score 0 11/17/2021 [facility] Questionnaire Answer [...] as of this encounter Care Teams Operator Helper Relationship Specialty Start Date End Date Deep Pruitt APRN PCP - General 05/22/19 documented as of this encounter
--- OUTSIDE RECORDS SUMMARY | 2024-07-23 08:43 | XMS_ITS | Encounter Summary ---
Author Organization [email or web address] Address [address] [place] [address] Care Team Providers Care Computer Graphic Designer Name Role Phone Deep Pruitt APRN Primary Care Provider Reason for Visit * Reason Comments DME Encounter Details Date Type Department Care Team (Late st Contact Info) Description 04/11/2022 Documentation Sleep Medicine Program at [address] [place] [address] Jarad De Leon MD [address] [place] [phone] Social History Tobacco Use Types Packs/Day [...] Date Recorded PHQ-2 Total Score 2 02/17/2022 [facility] of Occupat [...] as of this encounter Care Teams Computer Graphic Designer Relationship Specialty Start Date End Date Deep Pruitt APRN PCP - General 05/22/19 documented as of this encounter
--- OUTSIDE RECORDS SUMMARY | 2024-07-23 08:43 | XMS_ITS | Encounter Summary ---
Author Organization [facility] Address [address] [place] [address] Care Team Providers Care Bead Inspector Name Role Phone Sonal Deep Niko LOPEZ Primary Care Provider [phone] Reason for Visit * Reason Comments Medication Refill Encounter Details Date Type Department Care Team ([facility] st Contact Info) Description 05/03/2021 Refill [facility] [address] [place] [address] [phone] Aliya Pond, [address] [address] Medication Refill Social History Tobacco [...] Score 0 04/21/2021 [facility] - Occupational Stress Questionnaire [...] documented as of this encounter Care Teams Bead Inspector Relationship Specialty Start Date End Date Deep Pruitt APRN PCP - General 05/22/19 documented as of this encounter
--- OUTSIDE RECORDS SUMMARY | 2024-07-23 08:43 | XMS_ITS | Encounter Summary ---
Author Organization [email or web address] Address [address] [place] [address] Care Team Providers Care Software Engineering Supervisor Name Role Phone Katrin Santoyo MD Primary Care Pro vider Edison Vieira MD Unavailable [phone] Joe Devi MD Unavailable [phone] Encounter Details Date Type Department Care Team (Late st Contact Info) Description 07/16/2024 9:45 AM EDT Office Visit [facility] [address] [place] [address] Moriah Herbert, HAYLEE [address] [place] [address] Chronic radicular lumbar pain (Primary Dx); Long-term current use of opiate analgesic; Gout involving toe of left foot, unspecified cause, unspecified chronicity; Type 2 diabetes mellitus with stage 3 chronic kidney disease, with long-term current use of insulin, unspecified whether stage 3a or 3b CKD (CMS/HCC) Social History Tobacco Use Types Packs/Day Years [...] the past 12 months, has t he Spot formerly [employer], gas, oil or water [employer] threatened to shut off services in your home? No 06/06/2023 Depression Answer Date Recorded Patient Health Questionnaire-2 Score 2 10/31/2023 Sex and Gender Information Value Date Recorded Sex Assigned at Male 03/07/2022 10:30 AM EDT Legal Sex Male 10:30 AM EDT Gender Identity Male 11/07/2022 4:48 PM EDT Sexual Orientation Straight 11/07/2022 4: 48 PM EDT documented as of this encounter Progress Notes * Moriah Herbert, COMPOSITE WORKER - 07/16/2024 9:45 AM EDT Subjective: Darrel Cortes is a 54 y.o. male w/ PMH REGI, hypertension, GERD, hepatic steatosis, CKD, T2DM, CVA, who presents to the office for - Chronic Pain Clinic Group visits. Initial Group visit: 10/17/23 Last PCP visit: 02/01/24, Dr. Kumar Group Topic: physical therapy - OTHER: During group, Mr. Bhardwaj's CGM sensor alerted hypoglycemic event. Reports he had not eatenanything yet this morning and was already low when he woke up. Given apple juice and had some protein, blood sugar improved to > 100. Asymptomatic. Also requesting to check uric acid level with recent gout flare. Improved with treatment of prednisone. Chronic Pain History: Associated Diagnosis: chronic radicular lumbar pain Relevant Imaging: MR spine lumbar w/o contrast 02/02/2023: L3-L4 with mild facet arthropathy and ligamentum flavum thickening , L4-L5 there is mild annular bulging . Mild facet arthropathy and ligamentum flavum thickening. L5-S1 mild facet arthropathy . There is no central canal or neural foraminal narrowing Current pharm tx: Medication: Tramadol 50mg Q8H PRN. States taking medication as prescribed. Also tx with gabapentin and duloxetine 60mg in the morning and 30mg before bed Topicals: ajelomzbh-fcbhwmn-gpzeny salicylate topical TID Related Specialists: Referral to [facility] 09/19/23, although per specialist, unable to eval/schedule injection until BG better controlled Physical therapy referral July 2023 Review of Systems Constitutional: Negative for chills and fever. Cardiovascular: Negative for chest pain. Musculoskeletal: Positive for arthralgias and back pain. Physical Exam Constitutional: Appearance: Normal appearance. HENT: Head: Atraumatic. Pulmonary: Effort: Pulmonary effort is normal. Neurological: Mental Status: He is alert and oriented to person, place, and time. Psychiatric: Mood and Affect: Mood normal. Behavior: Behavior normal. Problem List Items Addressed This Visit Endocrine/Metabolic Type 2 diabetes mellitus with stage 3 chronic kidney disease, with long-term current use of insulin([facility]) Current Assessment & Plan Lab Results Component Value Date HGBA1C 12.5 (H) 03/27/2024 - BG value improved s/p carb intake. Encouraged to continue monitoring BG closely and reviewed s/s hypoglycemia - From chart review, appears as though following with [facility] with last visit/encounter May 2024. - If not actively following with outside specialist, would be a good candidate for CDTM program Infectious/Inflammatory Gout Relevant Orders Uric acid Other Chronic radicular lumbar pain - Primary Current Assessment & Plan -Good engagement and participation with Group Medical Visit model -Encouraged multifactorial approach to pain control including pharm and non- pharm modalities -Pill Count and Utox as expected Relevant Orders POCT RIKKI-14 Urine Drug Screen (Completed) Long-term current use of opiate analgesic Overview Medication: Tramadol 50mg Q8H PRN Indication: chronic radicular lumbar pain Last LOST CHARGE CARD CLERK Agreement: 04/02/24 Follow up: 1-2 month for Group Chronic [facility]. Follow up as scheduled with PCP, sooner as needed. * Emili Cordero RN - 07/16/2024 9:45 AM EDT LOST CHARGE CARD CLERK rehabilitation services manager: PDMP reviewed today. Last fill date: 05/28/24 Tramadol 50mg count was 49.5, anticipated 0 to be remaining. UTOX completed. Negative for all substances: AMP, BAR, BUP, BZO, MARYLU, FTY, MDMA, MET, MOP, MTD, OXY, PCP, TCA, THC. UTOX as expected. documented in this encounter Miscellaneous Notes * Assessment & Plan Note - HAYLEE Walker - 07/18/2024 11:35 AM EDT Associated Problem(s): Type 2 diabetes mellitus with stage 3 chronic kidney disease, with long-termcurrent use of insulin ([facility]) Lab Results Component Value Date HGBA1C 12.5 (H) 03/27/2024 - BG value improved s/p carb intake. Encouraged to continue monitoring BG closely and reviewed s/s hypoglycemia - From chart review, appears as though following with [facility] with last visit/encounter May 2024. - If not actively following with outside specialist, would be a good candidate for CDTM program * Assessment & Plan Note - HAYLEE Walker - 07/18/2024 11:31 AM EDT Associated Problem(s): Chronic radicular lumbar pain -Good engagement and participation with Group Medical Visit model -Encouraged multifactorial approach to pain control including pharm and non- pharm modalities -Pill Count and Utox as expected * Addendum Note - Sean Christine MA - 07/16/2024 9:45 AM EDTAddended by: SEAN REECE on: 07/19/2024 09:19 AM Modules accepted: Orders documented in this encounter Plan of Treatment Upcoming Encounters Date Type Department Care Team (Late st Contact Info) Description 08/13/2024 9:45 AM EDT Office Visit [facility] [address] [place] [address] 08/22/2024 1:15 PM EDT Office Visit [facility] [address] [place] [address] Katrin Santoyo MD [address] [place], [place] [phone] Scheduled Orders Name Type Priority Associated Diagnoses Orde r Schedule Uric acid Lab Routine Gout involving toe of left foot, unspecified cause, unspecified chronicity Expected: 07/16/2024 (Approximate), Expires: 07/16/2025 documented as of this encounter Goals Goal Patient Goal Type Associated Problems Recent Progress Patient-Stated? Author Blood Pressure < 140/90 Blood Pressure 166/96(2024 4:42 PM EDT) No Eve Guzman PharmD Hemoglobin A1c < 7 Result Component 12.5(03/27/20 24 3:40 PM EST) No Eve Guzman PharmD documented as of this encounter Procedures Procedure Name Priority Date/Time Associated Diagnosis Comments POCT GLUCOSE Routine 07/19/2024 9:19 AM EDT Type 2 diabetes mellitus with stage 3 chronic kidney disease, with long-term current use of insulin, unspecified whether stage 3a or 3b CKD ([facility]) POCT GLUCOSE Routine 07/19/2024 9:17 AM EDT Type 2 diabetes mellitus with stage 3 chronic kidney disease, with long-term current use of insulin, unspecified whether stage 3a or 3b CKD (CMS/HCC) POCT RIKKI-14 URINE DRUG SCREEN Routine 07/16/2024 11:31 AM EDT Chronic radicular lumbar pain documented in this encounter Results * POCT Glucose (07/19/2024 9:19 AM EDT) [facility] Glucose Blood, POC 105 60 - 200 mg/dL Comment:random QC Media Lot # [id number] Lot# Expiration Date Blood Capillary blood specimen / Unknown 07/19/2024 9:19 AM EDT us Moriah Herbert [facility] POINT OF CARE TEST ENTER/EDIT ORDERABLES Final Result * POCT Glucose (07/19/2024 9:17 AM EDT) Glucose Blood, POC 89 60 - 200 mg/dL Comment:random QC Media Lot # [id number] Lot# Expiration Date Blood Capillary blood specimen / Unknown 07/19/2024 9:17 [address] [facility] POINT OF CARE TEST ENTER/EDIT ORDERABLES Final Result * POCT RIKKI-14 Urine Drug Screen (07/16/2024 11:31 AM EDT) Urine Urine specimen obtained by clean catch procedure / Unknown 07/16/2024 11:31 AM EDT Narrative Emili Cordero RN - 07/16/2024 11:31 AM EDT UTOX cup Lot#[id number] Exp. 12/25/25 Internal Pass Control UTOX Negative for all substances. Moriah Herbert [facility] POINT OF CARE TEST ENTER/EDIT ORDERABLES Final Result documented in this encounter Visit Diagnoses Diagnosis Chronic radicular lumbar pain- Primary Long-term current use of opiate analgesic Encounter for long-term (current) use of other medications Gout involving toe of left foot, unspecified cause, unspecified chronicity Type 2 diabetes mellitus with stage 3 chronic kidney disease, with long-term current use of insulin, unspecified whether stage 3a or 3b CKD (CMS/HCC) documented in this encounter Additional Health Concerns Assessment Noted Time PHQ-9 Depression Total Score: 4 10/31/19 24 10:32 AM EDT documented as of this encounter Care Teams Software Engineering Supervisor Relationship Specialty Start Date End Date Katrin Santoyo MD [address] [place] [address] PCP - General Internal Medicine 12/13/22 Edison Vieira MD [address] [place] [address] Pulmonary Disease 04/07/24 Joe Devi MD [address] [facility] 3rd [place] [address] Gastroenterology 04/07/24 Cairto Roche DNP [address] [facility], [address] [place] [address] Nephrology 04/07/24 [employer] 04/11/24 documented as of this encounter
--- OUTSIDE RECORDS SUMMARY | 2024-07-23 08:43 | XMS_ITS | Encounter Summary ---
Author Organization [employer] [facility] Address [address] [place] [address] Care Team Providers Care Community Development Officer Name Role Phone Deep Pruitt APRN Primary Care Provider Reason for Visit * Reason Comments Medication Refill Encounter Details Date Type Department Care Team ([facility] st Contact Info) Description 02/25/2022 Refill [facility] [address] [place], [place] [phone] Deep Pruitt, JOHN [address] [place] [phone] Medication Refill Social History Tobacco Use [...] documented as of this encounter Care Teams Community Development Officer Relationship Specialty Start Date End Date Deep Pruitt APRN PCP - General 05/22/19 documented as of this encounter
--- OUTSIDE RECORDS SUMMARY | 2024-07-23 08:43 | XMS_ITS | Encounter Summary ---
Author Organization [employer] [facility] Address [address] [place] [address] Care Team Providers Care Media Center Specialist Name Role Phone Deep Prutit APRN Primary Care Provider [phone] Reason for Visit * Reason Comments Medication Refill Encounter Details Date Type Department Care Team ([facility] st Contact Info) Description 12/15/2021 Refill [facility] [address] [place], [place] [phone] Deep Pruitt APRN [address] [place] [address] Medication Refill Social History Tobacco [...] Date Recorded PHQ-2 Total Score 1 12/16/2021 [facility] [...] as of this encounter Care Teams Media Center Specialist Relationship Specialty Start Date End Date Deep Pruitt APRN PCP - General 05/22/19 documented as of this encounter
--- OUTSIDE RECORDS SUMMARY | 2024-07-23 08:43 | XMS_ITS | Encounter Summary ---
Author Organization [facility] Address [address] [place] [address] Care Team Providers Care Polymer Scientist Name Role Phone Deep Pruitt Niko LOPEZ Primary Care Provider Reason for Visit * Reason Comments Medication Refill Encounter Details Date Type Department Care Team (Late st Contact Info) Description 05/06/[address] [phone] Arben Fountain, NOLVIA [address] [place] [address] Medication Refill Social History Tobacco Use [...] documented as of this encounter Care Teams Polymer Scientist Relationship Specialty Start Date End Date Deep Pruitt APRN PCP - General 05/22/19 documented as of this encounter
--- OUTSIDE RECORDS SUMMARY | 2024-07-23 08:43 | XMS_ITS | Encounter Summary ---
Author Organization [facility] Address [address] [place] [address] Care Team Providers Care Land Department Head Name Role Phone Deep Pruitt APRN Primary Care Provider Encounter Details Date Type Department Care Team (Late st Contact Info) Description 04/08/2021 Lab Requisition [facility] Laboratory Specimens [address] [place] [address] Isha Brown APRN [address] [place] [address] Persons encountering health services in [...] Date Recorded PHQ-2 Total Score 1 03/24/2021 [facility] - Occupational Stress Questionnaire Answer [...] Date/Time Associated Diagnosis Comments BLOOD GAS, ARTERIAL ([facility]) Routine 04/08/2021 12:44 PM EST documented in this encounter Results * (ABNORMAL) Blood gas, arterial () (04/08/2021 12:44 PM EST) pH Arterial 7.37 7.35 - 7.45 units 04/08/2021 12:54 PM [facility] DEPARTMENT OF LABORATORY MEDICINE pCO2, Arterial 49(H) 32 - 48 mmHg 04/08/20 21 12:54 PM [facility] DEPARTMENT OF LABORATORY MEDICINE pO2, Arterial 65(L) 83 - 108 mmHg 04/08/2021 12:54 PM [facility] DEPARTMENT OF LABORATORY MEDICINE O2 Sat, Arterial 89(L) 94 - 98 % 04/08/20 12:54 PM [facility] DEPARTMENT OF LABORATORY MEDICINE Calculated HCO3, Arterial 27.5 21.0 - 28.0 mmol/L 04/08/2021 12:54 PM [facility] DEPARTMENT OF LABORATORY MEDICINE Base Excess, Arterial 2 -2 - 3 mmol/L 04/08/2021 12:54 PM [facility] DEPARTMENT OF LABORATORY MEDICINE Patient Temperature 37.0 Celsius 04/08/2021 12:54 PM EST [facility] DEPARTMENT OF LABORATORY MEDICINE FIO2 21 % 04/08/2021 12:54 PM EST [facility] DEPARTMENT OF LABORATORY MEDICINE Blood, Arterial 04/08/2021 1 2:44 PM EST 04/08/2021 12:45 PM EST us Isha Brown WEATHER ANALYST LAB BLOOD ORDERABL ES Final Result Performing Organization Address City/State/[facility] de Phone Number [facility] DEPARTMENT OF LABORATORY MEDICINE [address] [place] [address] documented in this encounter Visit Diagnoses Diagnosis [...] documented as of this encounter Care Teams Land Department Head Relationship Specialty Start Date End Date Deep Pruitt APRN PCP - General 05/22/19 documented as of this encounter
--- OUTSIDE RECORDS SUMMARY | 2024-07-23 08:43 | XMS_ITS | Encounter Summary ---
Author Organization [employer] Address [address] [facility] 7t [place] [address] Care Team Providers Care Die Cast Technician Name Role Phone Katrin Santoyo MD Primary Care Pro vider Edison Vieira MD Unavailable [phone] Joe Devi MD Unavailable [phone] Reason for Visit * Reason Onset Date Comments Durable Medical Equipment 11/08/2023 Encounter Details Date Type Department Care Team (Late st Contact Info) Description 11/08/2023 Telephone [facility] [address] [place], [place] [phone] Katrin Santoyo MD [address] [place], [place] [phone] Durable Medical Equipment Social History Tobacco Use [...] 11/10/2023 11:01 AM EDT Call placed to [employer] spoke to Zhen who was informed on 10/31/23 we faxed over RX with the qty on it. He reports that what they need is the letter of medical necessity not the Rx. He reports he will fax it to blue team at [phone] and once signed and faxed back it will be all set. Awaiting do cument. * Telephone Encounter - Mauricio Taylor - 11/08/2023 3:57 PM EDT Tc from Tanya at [facility] line calling to report the DME is missing the quantity and the description please sign and refax documented in this encounter Plan of Treatment Upcoming Encounters Date Type Department Care Team (Late st Contact Info) Description 08/13/2024 9:45 AM EDT Office Visit [facility] [address] [place] [address] 08/22/2024 1:15 PM EDT Office Visit [facility] [address] [place] [address] Katrin Santoyo MD [address] [place] [address] documented as of this encounter Goals Goal [...] as of this encounter Care Teams Die Cast Technician Relationship Specialty Start Date End Date Katrin Santoyo MD [address] [place] [address] PCP - General Internal Medicine 12/13/22 Edison Vieira MD [address] [place] [address] Pulmonary Disease 04/07/24 Joe Devi MD [address] [facility] 3rd [place] [address] Gastroenterology 04/07/24 Carito Roche DNP [address] [facility], [address] [place] [address] Nephrology 04/07/24 [facility] 04/11/24 documented as of this encounter
--- OUTSIDE RECORDS SUMMARY | 2024-07-23 08:43 | XMS_ITS | Encounter Summary ---
Author Organization [employer] [facility] Address [address] [place] [address] Care Team Providers Care Overedge Sewer Name Role Phone Romelia Pruittian Niko LOPEZ Primary Care Provider [phone] Reason for Visit * Reason Onset Date Comments Medication Refill 11/10/2021 Encounter Details Date Type Department Care Team (Late st Contact Info) Description 11/10/2021 Refill [facility] [address] [facility] [address] [place] [phone] Anahi Rossi, JOHN [address] [place] [phone] Medication Refill Social History Tobacco Use [...] documented as of this encounter Care Teams Overedge Sewer Relationship Specialty Start Date End Date Deep Pruitt APRN PCP - General 05/22/19 documented as of this encounter
--- OUTSIDE RECORDS SUMMARY | 2024-07-23 08:43 | XMS_ITS | Encounter Summary ---
Author Organization [facility] Address [address] [place] [address] Care Team Providers Care Recycle Worker Name Role Phone Deep Pruitt APRN Primary Care Provider Reason for Visit * Reason Comments Advice Only Other Encounter Details Date Type Department Care Team ([facility] Contact Info) Description 12/02/2021 Telephone [facility] [address] [place] [address] Deep Pruitt APRN [address] [place] [address] Advice Only; Other Social History [...] Mira Rios - 12/02/2021 1:32 PM EDT [facility] - [address] calling in regards to med refill request for Carvedilol 25 mg and Gabapentin medications. Call back [phone] * Telephone Encounter - Leah Madera LPN - 12/02/2021 1:21 PM EDT Patient at * Telephone Encounter - Usha Kline - 12/02/2021 12:18 PM EDT Pt is having a lot of stomach pain on the left side and would like to speak with PCP or nurse. Requesting a call back. [facility] callback number [phone] Bur[place]ian speaking documented in this encounter Plan of [...] documented as of this encounter Care Teams Recycle Worker Relationship Specialty Start Date End Date Deep Pruitt APRN PCP - General 05/22/19 documented as of this encounter
--- OUTSIDE RECORDS SUMMARY | 2024-07-23 08:43 | XMS_ITS | Encounter Summary ---
Author Organization [employer] [facility] Address [address] [place] [address] Care Team Providers Care Hydraulic Lift Driver Name Role Phone Sonal Deep Niko LOPEZ Primary Care Provider [phone] Reason for Visit * Reason Comments Medication Refill Encounter Details Date Type Department Care Team ([facility] st Contact Info) Description 04/12/2021 Refill [facility] [address] [place] [phone] Aliya Pond, [address] [address] Medication Refill Social History Tobacco [...] Score 1 03/24/2021 [facility] - Occupational Stress [...] documented as of this encounter Care Teams Hydraulic Lift Driver Relationship Specialty Start Date End Date Deep Pruitt APRN PCP - General 05/22/19 documented as of this encounter
--- OUTSIDE RECORDS SUMMARY | 2024-07-23 08:43 | XMS_ITS | Encounter Summary ---
Author Organization [employer] [facility] Address [address] [place] [address] Care Team Providers Care Cream Beater Name Role Phone Deep Pruitt APRN Primary Care Provider Reason for Visit * Reason Comments Medication Refill Encounter Details Date Type Department Care Team ([facility] st Contact Info) Description 12/18/2021 Refill [facility] [address] [place], [place] [phone] Deep Pruitt APRN [address] [place] [address] [...] Date Recorded PHQ-2 Total Score 4 12/20/2021 [facility] of Occupat ional [...] documented as of this encounter Care Teams Cream Beater Relationship Specialty Start Date End Date Deep Pruitt APRN PCP - General 05/22/19 documented as of this encounter
--- OUTSIDE RECORDS SUMMARY | 2024-07-23 08:43 | XMS_ITS | Encounter Summary ---
Author Organization [employer] [facility] Address [address] [place] [address] Care Team Providers Care Clerical And Office Support Workers Name Role Phone SonalDeep Niko LOPEZ Primary Care Provider [phone] Reason for Visit * Reason Comments Medication Refill Encounter Details Date Type Department Care Team (Late st Contact Info) Description 05/12/2020 Refill [facility] Nutrition at [address] [address] Zena Hines PA [address] [place] [address] Medication Refill Social History [...] Date Recorded PHQ-2 Score 0 03/13/2020 [facility]at ional Health [...] Pike Please review pt no longer seeing [facility] Wellness Dept for DM management. Katrin Sullivan [...] documented as of this encounter Care Teams Clerical And Office Support Workers Relationship Specialty Start Date End Date Deep Pruitt APRN PCP - General 05/22/19 documented as of this encounter
--- OUTSIDE RECORDS SUMMARY | 2024-07-23 08:43 | XMS_ITS | Encounter Summary ---
Author Organization [facility] Address [address] [place] [address] Care Team Providers Care Contract Technician Name Role Phone Romelia Pruittian Niko LOPEZ Primary Care Provider Encounter Details Date Type Department Care Team (Late st Contact Info) Description 11/30/2021 Scanned Document [facility] [address] [place] [address] External, Provider Social History Tobacco Use Types [...] as of this encounter Care Teams Contract Technician Relationship Specialty Start Date End Date Deep Pruitt APRN PCP - General 05/22/19 documented as of this encounter
--- OUTSIDE RECORDS SUMMARY | 2024-07-23 08:43 | XMS_ITS | Encounter Summary ---
Author Organization [employer] [facility] Address [address] [place] [phone] Care Team Providers Care Tour Driver Name Role Phone Deep Pruitt JOHN Primary Care Provider Reason for Visit * Reason Comments Medication Refill Encounter Details Date Type Department Care Team (Late st Contact Info) Description 12/03/2021 Refill [facility] Podiatry at [address] [place] [phone] Arben Fountain, NOLVIA [address] [place] [address] Medication Refill Social History Tobacco Use [...] Date Recorded PHQ-2 Total Score 0 11/17/2021 [facility] - Occupational Stress Questionnaire Answer Date [...] documented as of this encounter Care Teams Tour Driver Relationship Specialty Start Date End Date Deep Pruitt APRN PCP - General 05/22/19 documented as of this encounter
--- OUTSIDE RECORDS SUMMARY | 2024-07-23 08:43 | XMS_ITS | Encounter Summary ---
Author Organization [facility] Address [address] [place] [address] Care Team Providers Care Green Pipefitter Name Role Phone Deep Pruitt APRN Primary Care Provider Reason for Visit * Reason Comments Medication Refill Encounter Details Date Type Department Care Team ([facility] st Contact Info) Description 05/18/[address] [facility] [address] [place] [address] Deep Pruitt APRN [address] [place] [phone] Medication Refill Social History Tobacco Use [...] documented as of this encounter Care Teams Green Pipefitter Relationship Specialty Start Date End Date Deep Pruitt APRN PCP - General 05/22/19 documented as of this encounter
--- OUTSIDE RECORDS SUMMARY | 2024-07-23 08:43 | XMS_ITS | Encounter Summary ---
Author Organization [facility] Address [address] [place] [address] Care Team Providers Care Supervisor Molding Name Role Phone Deep Pruitt JOHN Primary Care Provider Reason for Visit * Reason Comments Medication Refill Encounter Details Date Type Department Care Team (Late st Contact Info) Description 05/06/2021 Refill [facility] Podiatry at [address] [place] [phone] Arben Fountain, NOLV[address] [place] [address] Medication Refill Social History Tobacco Use [...] Score 0 04/21/2021 [facility]ational Stress Questionnaire Answer [...] as of this encounter Care Teams Supervisor Molding Relationship Specialty Start Date End Date Deep Pruitt APRN PCP - General 05/22/19 documented as of this encounter
--- OUTSIDE RECORDS SUMMARY | 2024-07-23 08:43 | XMS_ITS | Encounter Summary ---
Author Organization [facility] Address [address] [place] [address] Care Team Providers Care Airline Station Agent Name Role Phone Deep Pruitt APRN Primary Care Provider Reason for Visit * Reason Comments Medication Refill Encounter Details Date Type Department Care Team ([facility] st Contact Info) Description 03/19/2022 Refill [facility] [address] [place], [place] [phone] Deep Pruitt, JOHN [address] [place] [address] Medication Refill Social History Tobacco [...] Date Recorded PHQ-2 Total Score 2 02/17/2022 [facility] of Occupat ional Health [...] documented as of this encounter Care Teams Airline Station Agent Relationship Specialty Start Date End Date Deep Pruitt APRN PCP - General 05/22/19 documented as of this encounter
--- OUTSIDE RECORDS SUMMARY | 2024-07-23 08:43 | XMS_ITS | Encounter Summary ---
Author Organization [facility] Address [address] [place] [address] Care Team Providers Care Slack Line Yarder Name Role Phone Romelia Pruittian Niko LOPEZ Primary Care Provider Encounter Details Date Type Department Care Team (Late st Contact Info) Description 03/18/2021 Scanned Document [facility] [address] [place] [address] External, Provider Social History Tobacco Use Types [...] Date Recorded PHQ-2 Total Score 2 03/10/2021 [facility] of Occupat ional Health [...] documented as of this encounter Care Teams Slack Line Yarder Relationship Specialty Start Date End Date Deep Pruitt APRN PCP - General 05/22/19 documented as of this encounter
--- OUTSIDE RECORDS SUMMARY | 2024-07-23 08:43 | XMS_ITS | Encounter Summary ---
Author Organization [facility] Address [address] [place] [address] Care Team Providers Care Clinical Trial Leader Name Role Phone Deep Pruitt APRN Primary Care Provider Reason for Visit * Reason Comments Medication Refill Encounter Details Date Type Department Care Team ([facility] st Contact Info) Description 03/10/2021 Refill [facility] [address] [place] [address] Deep Pruitt APRN [address] [place] [phone] Medication Refill Social History Tobacco Use [...] Date Recorded PHQ-2 Total Score 2 03/10/2021 [facility] of Occupat ional Health - [...] as of this encounter Care Teams Clinical Trial Leader Relationship Specialty Start Date End Date Deep Pruitt APRN PCP - General 05/22/19 documented as of this encounter
--- OUTSIDE RECORDS SUMMARY | 2024-07-23 08:43 | XMS_ITS | Encounter Summary ---
Author Organization [facility] Address [address] [place] [address] Care Team Providers Care Pineapple Plantation Manager Name Role Phone Deep Pruitt JOHN Primary Care Provider Reason for Visit * Reason Comments Medication Refill Encounter Details Date Type Department Care Team (Late st Contact Info) Description 05/12/2021 Refill [facility] Podiatry at [address] [place] [phone] Arben Fountain, NOLVIA [address] [place] [address] Medication Refill Social History Tobacco Use [...] Date Recorded PHQ-2 Total Score 0 04/21/2021 [facility] - Occupational Stress Questionnaire [...] documented as of this encounter Care Teams Pineapple Plantation Manager Relationship Specialty Start Date End Date Deep Pruitt APRN PCP - General 05/22/19 documented as of this encounter
--- OUTSIDE RECORDS SUMMARY | 2024-07-23 08:43 | XMS_ITS | Encounter Summary ---
Author Organization [facility] Address [address] [place] [address] Care Team Providers Care Timekeeper Name Role Phone Deep Pruitt APRN Primary Care Provider Reason for Visit * Reason Comments Medication Refill Encounter Details Date Type Department Care Team ([facility] st Contact Info) Description 05/13/[address] [facility] Mail[employer] [address] [place], [place] [address] Deep Pruitt APRN [address] [place] [address] Medication Refill Social History [...] Answer Date Recorded PHQ-2 Score 0 03/13/2020 [facility] of Occupat ional Health - Occupational Stress [...] documented as of this encounter Care Teams Timekeeper Relationship Specialty Start Date End Date Deep Pruitt APRN PCP - General 05/22/19 documented as of this encounter
--- OUTSIDE RECORDS SUMMARY | 2024-07-23 08:43 | XMS_ITS | Encounter Summary ---
Author Organization [facility] Address [address] [place] [address] Care Team Providers Care Dental Hygiene Instructor Name Role Phone Sonal Deep Niko LOPEZ Primary Care Provider [phone]- [phone] Reason for Visit * Reason Comments Medication Refill Encounter Details Date Type Department Care Team ([facility] st Contact Info) Description 05/10/2021 Refill [facility] [address] [place] [address] [phone] Aliya Pond, [address] [address] Medication Refill Social History Tobacco [...] Total Score 0 04/21/2021 [facility] [...] documented as of this encounter Care Teams Dental Hygiene Instructor Relationship Specialty Start Date End Date Deep Pruitt APRN PCP - General 05/22/19 documented as of this encounter
--- OUTSIDE RECORDS SUMMARY | 2024-07-23 08:43 | XMS_ITS | Encounter Summary ---
Author Organization [facility] Address [address] [place] [address] Care Team Providers Care C Developer Name Role Phone Deep Pruitt APRN Primary Care Provider [phone] Reason for Visit * Reason Comments Medication Refill Encounter Details Date Type Department Care Team ([facility] st Contact Info) Description 11/17/2021 Refill [facility] [address] [place], [place] [phone] Deep Pruitt APRN [address] [place] [address] Medication Refill Social History Tobacco [...] Date Recorded PHQ-2 Total Score 0 11/17/2021 [facility] of Occupat ional [...] documented as of this encounter Care Teams C Developer Relationship Specialty Start Date End Date Deep Pruitt APRN PCP - General 05/22/19 documented as of this encounter
--- OUTSIDE RECORDS SUMMARY | 2024-07-23 08:43 | XMS_ITS | Encounter Summary ---
Author Organization [facility] Address [address] [place] [address] Care Team Providers Care Rotor Blade Installer Name Role Phone Deep Pruitt APRN Primary Care Provider Reason for Visit * Reason Comments Medication Refill Encounter Details Date Type Department Care Team ([facility] st Contact Info) Description 03/08/2021 Refill [facility] [address] [place], [place] [phone] Deep Pruitt APRN [address] [place] [address] Medication Refill Social History Tobacco [...] Date Recorded PHQ-2 Total Score 2 03/10/2021 [facility] of Occupat ional [...] documented as of this encounter Care Teams Rotor Blade Installer Relationship Specialty Start Date End Date Deep Pruitt APRN PCP - General 05/22/19 documented as of this encounter
--- OUTSIDE RECORDS SUMMARY | 2024-07-23 08:43 | XMS_ITS | Encounter Summary ---
Author Organization [facility] Address [address] [place] [address] Care Team Providers Care Police Patrol Officer Name Role Phone Sonal Deep Niko LOPEZ Primary Care Provider [phone]- [phone] Reason for Visit * Reason Comments Medication Refill Encounter Details Date Type Department Care Team ([facility] st Contact Info) Description 04/07/2021 Refill [facility] [address] [place] [id number] Aliya Pond, [address] [address] Medication Refill Social History Tobacco [...] Date Recorded PHQ-2 Total Score 1 03/24/2021 [facility] - Occupational Stress Questionnaire [...] as of this encounter Care Teams Police Patrol Officer Relationship Specialty Start Date End Date Deep Pruitt APRN PCP - General 05/22/19 documented as of this encounter
--- OUTSIDE RECORDS SUMMARY | 2024-07-23 08:43 | XMS_ITS | Encounter Summary ---
Author Organization [facility] [employer] and [facility] Address [address] [place] [address] Care Team Providers Care Fur Buyer Name Role Phone Deep Pruitt APRN Primary Care Provider Reason for Visit * Reason Onset Date Comments Medication Refill 11/19/2021 Encounter Details Date Type Department Care Team (Late st Contact Info) Description 11/19/2021 Refill [facility] [address] [facility] [address] [facility] 2nd [place] [address] Yue Dominguez APRN [address] [place] [phone] Medication Refill Social History Tobacco Use Types [...] Date Recorded PHQ-2 Total Score 0 11/17/2021 [facility] of Occupat ional [...] as of this encounter Care Teams Fur Buyer Relationship Specialty Start Date End Date Deep Pruitt APRN PCP - General 05/22/19 documented as of this encounter
--- OUTSIDE RECORDS SUMMARY | 2024-07-23 08:43 | XMS_ITS | Encounter Summary ---
Author Organization [facility] Address [address] [place] [address] Care Team Providers Care Pole Setter Name Role Phone Deep Pruitt APRN Primary Care Provider Reason for Visit * Reason Comments Medication Refill Encounter Details Date Type Department Care Team ([facility] st Contact Info) Description 03/20/2021 Refill [facility] [address] [place] [address] Deep Pruitt APRN [address] [place] [phone] Medication Refill Social History Tobacco Use [...] Date Recorded PHQ-2 Total Score 1 03/24/2021 [facility] of Occupat ional Health [...] documented as of this encounter Care Teams Pole Setter Relationship Specialty Start Date End Date Deep Pruitt APRN PCP - General 05/22/19 documented as of this encounter
--- OUTSIDE RECORDS SUMMARY | 2024-07-23 08:43 | XMS_ITS | Encounter Summary ---
Author Organization [facility] Address [address] [place] [address] Care Team Providers Care Hosiery Bagger Name Role Phone SonalDeep Niko LOPEZ Primary Care Provider Reason for Visit * Reason Comments Medication Refill Encounter Details Date Type Department Care Team (Late st Contact Info) Description 04/07/2021 Refill [facility] Nutrition at [address] [address] Zena Hines PA [address] [place] [phone] Medication Refill Social History Tobacco Use [...] Date Recorded PHQ-2 Total Score 1 03/24/2021 [facility] of Occupat [...] seeing Zena Hines for DM management at [facility]. Thanks, Katrin documented in this [...] documented as of this encounter Care Teams Hosiery Bagger Relationship Specialty Start Date End Date Deep Pruitt APRN PCP - General 05/22/19 documented as of this encounter
--- OUTSIDE RECORDS SUMMARY | 2024-07-23 08:43 | XMS_ITS | Encounter Summary ---
Author Organization [facility] Address [address] [place] [address] Care Team Providers Care Cable Lacer Name Role Phone Deep Pruitt APRN Primary Care Provider Reason for Visit * Reason Comments Forms Encounter Details Date Type Department Care Team ([facility] Contact Info) Description 06/16/2020 Telephone [facility] [address] [place] [address] Deep Pruitt APRN [address] [place] [phone] Forms Social History Tobacco Use Types [...] update on handicap forms for pt. Call [phone] documented in this encounter Plan of Treatment [...]
--- OUTSIDE RECORDS SUMMARY | 2024-07-23 08:43 | XMS_ITS | Encounter Summary ---
Author Organization [facility] Address [address] [place] [address] Care Team Providers Care Department Store Manager Name Role Phone Deep Pruitt APRN Primary Care Provider Reason for Visit * Reason Comments Other Encounter Details Date Type Department Care Team ([facility] Contact Info) Description 05/19/2020 Telephone [facility] [address] [place] [address] Deep Pruitt APRN [address] [place] [address] Other Social History Tobacco Use [...] Answer Date Recorded PHQ-2 Score 0 03/13/2020 [facility] of Occupat ional Health [...] to his gout, call back number is [phone] documented in this encounter Plan of Treatment [...] documented as of this encounter Care Teams Department Store Manager Relationship Specialty Start Date End Date Deep Pruitt APRN PCP - General 05/22/19 documented as of this encounter
--- OUTSIDE RECORDS SUMMARY | 2024-07-23 08:43 | XMS_ITS | Encounter Summary ---
Author Organization [facility] Address [address] [place] [address] Care Team Providers Care Auto Body Customizer Name Role Phone Deep Pruitt APRN Primary Care Provider Reason for Visit * Reason Comments Medication Refill Encounter Details Date Type Department Care Team ([facility] st Contact Info) Description 05/27/2020 Telephone [facility] [address] [place] [address] Deep Pruitt APRN [address] [place] [address] Medication Refill Social History Tobacco [...] medications and request someone calls him at [phone] documented in this encounter Plan of Treatment [...] as of this encounter Care Teams Auto Body Customizer Relationship Specialty Start Date End Date Deep Pruitt APRN PCP - General 05/22/19 documented as of this encounter
--- OUTSIDE RECORDS SUMMARY | 2024-07-23 08:44 | XMS_ITS | Encounter Summary ---
Author Organization [employer] Address [address] [facility] 7t [place] [address] Care Team Providers Care Larriman Helper Name Role Phone Elise Stanford VIDEO RECORDER MECHANIC Primary Care Provider [phone]- [phone] Katrin Santoyo MD Primary Care Pro vider Edison Vieira MD Unavailable [phone] Joe Devi MD Unavailable [phone] Encounter Details Date Type Department Care Team (Late st Contact Info) Description 12/06/2022 Telephone [facility] [address] [place] [address] Susan Manzano LPN Social History Tobacco Use [...] Critical result line call from Damaris with [facility]. Patient glucose reported as 411 today. Triage call to follow with patient. Please update PCP with critical result. documented in this encounter Plan of Treatment Upcoming Encounters Date Type Department Care Team (Late st Contact Info) Description 08/13/2024 9:45 AM EDT Office Visit [facility] [address] [place] [address] 08/22/2024 1:15 PM EDT Office Visit [address] [address] Katrin Santoyo MD [address] [place] [address] documented as of this encounter Visit Diagnoses Not on filedocumented in this encounter Additional Health Concerns Assessment Noted Time PHQ-9 Depression Total Score: 24 023 2:05 PM EDT documented as of this encounter Care Teams Larriman Helper Relationship Specialty Start Date End Date Elise Stanford FNP PCP - General Family Medicine 11/24/22 12/12/22 Katrin Santoyo MD [address] [place] [address] PCP - General Internal Medicine 12/13/22 Edison Vieira MD [address] [place] [address] Pulmonary Disease 04/07/24 Joe Devi MD [address] [facility] 3rd [place] [address] Gastroenterology 04/07/24 Carito Roche DNP [address] [facility], [address] [place] [address] Nephrology 04/07/24 [employer] 04/11/24 documented as of this encounter
--- OUTSIDE RECORDS SUMMARY | 2024-07-23 08:44 | XMS_ITS | Encounter Summary ---
Author Organization [facility] Address [address] [place] [address] Care Team Providers Care Software Development Analyst Name Role Phone Deep Pruitt JOHN Primary Care Provider Encounter Details Date Type Department Care Team (Late st Contact Info) Description 09/26/2016 Scanned Document [facility] [address] [place], [place] [phone] External, Provider Social History Tobacco Use Types [...] as of this encounter Care Teams Software Development Analyst Relationship Specialty Start Date End Date Deep Pruitt APRN PCP - General 05/22/19 documented as of this encounter
--- OUTSIDE RECORDS SUMMARY | 2024-07-23 08:44 | XMS_ITS | Encounter Summary ---
Author Organization [facility] [employer] and [facility] Address [address] [place] [address] Care Team Providers Care Plant Operations Coordinator Name Role Phone Deep Pruitt APRN Primary Care Provider [phone] Reason for Visit * Reason Onset Date Comments Medication Refill 11/10/2021 Encounter Details Date Type Department Care Team (Late st Contact Info) Description 11/10/2021 Refill [facility] [address] [facility] [address] [facility] 2nd [place] [address] Taylor Malagon, [facility] [address] [place] [phone] Medication Refill Social History Tobacco Use Types [...] 0 10/12/2021 [facility] of Occupat ional [facility] - Occupational Stress Questionnaire Answer Date [...] today, but unknown at home. Defer to [facility] pharmacy team for antihypertensive management. Current [...] as of this encounter Care Teams Plant Operations Coordinator Relationship Specialty Start Date End Date Deep Pruitt APRN PCP - General 05/22/19 documented as of this encounter
--- OUTSIDE RECORDS SUMMARY | 2024-07-23 08:44 | XMS_ITS | Encounter Summary ---
Author Organization [facility] and [facility] Address [address] [place] [address] Care Team Providers Care Sports Health Club Membership Advisors Name Role Phone Deep Pruitt APRN Primary Care Provider Reason for Visit * Reason Onset Date Comments Medication Refill 11/10/2021 Encounter Details Date Type Department Care Team (Late st Contact Info) Description 11/10/2021 Refill [facility] [address] [facility] [address] [facility] 2nd [place] [address] Taylor Malagon, [facility] [address] [place] [phone] Medication Refill Social History Tobacco Use Types [...] 10/12/2021 [facility] of Occupat ional [facility] - Occupational Stress Questionnaire Answer Date [...] Advisors Relationship Specialty Start Date End Date Deep Pruitt APRN PCP - General 05/22/19 documented as of this encounter
--- OUTSIDE RECORDS SUMMARY | 2024-07-23 08:44 | XMS_ITS | Encounter Summary ---
Author Organization [facility] Address [address] [place] [address] Care Team Providers Care Cnc Operator Name Role Phone Deep Pruitt APRN Primary Care Provider Reason for Visit * Reason Comments Other Advice Only Encounter Details Date Type Department Care Team ([facility] Contact Info) Description 10/20/2021 Telephone [facility] [address] [place] [address] Deep Pruitt APRN [address] [place] [address] Other; Advice Only Social History [...] Date Recorded PHQ-2 Total Score 0 10/12/2021 [facility] of Occupat ional Health - [...] legs have not stops hurting. Contact number [phone] documented in this encounter Plan of Treatment Not on file documented as of this encounter Visit Diagnoses Not on filedocumented in this encounter Additional Health Concerns Assessment Noted Time PHQ-9 Depression Total Score: 0 10/13/19 22 2:23 PM EDT documented as of this encounter Care Teams Cnc Operator Relationship Specialty Start Date End Date Deep Pruitt APRN PCP - General 05/22/19 documented as of this encounter
--- OUTSIDE RECORDS SUMMARY | 2024-07-23 08:44 | XMS_ITS | Encounter Summary ---
Author Organization [facility] Address [address] [place] [address] Care Team Providers Care Him Coder Name Role Phone Deep Pruitt JOHN Primary Care Provider Encounter Details Date Type Department Care Team (Late st Contact Info) Description 02/20/2017 Scanned Document [facility] [address] [place] [address] Francisco Veloz PA [address] [place] [phone] Social History Tobacco Use Types Packs/Day [...] documented as of this encounter Care Teams Him Coder Relationship Specialty Start Date End Date Deep Pruitt APRN PCP - General 05/22/19 documented as of this encounter
--- OUTSIDE RECORDS SUMMARY | 2024-07-23 08:44 | XMS_ITS | Encounter Summary ---
Author Organization [facility] [place] Address [address] [place] [address] Care Team Providers Care Director Biology Name Role Phone Deep Pruitt APRN Primary Care Provider Encounter Details Date Type Department Care Team ([facility] st Contact Info) Description 10/27/2021 Scanned Document [facility] [address] [place], [place] [phone] Deep Pruitt APRN [address] [place] [address] Social History Tobacco Use Types [...] Date Recorded PHQ-2 Total Score 0 10/12/2021 [facility] of Occupat ional Health [...] as of this encounter Care Teams Director Biology Relationship Specialty Start Date End Date Deep Pruitt APRN PCP - General 05/22/19 documented as of this encounter
--- OUTSIDE RECORDS SUMMARY | 2024-07-23 08:44 | XMS_ITS | Clinical Summary ---
Author Organization [facility] Address [address] [place] [address] Phone Care Team Providers Care Blacking Machine Operator Name Role Phone Physician, No Pcp [...] * Annual BMP Blood Test (11/07/2023) Pathologist [facility] Annual BMP Blood Test Abstracted [facility] Provider HEALTH MAINTENANCE Final Result * Lipid panel (09/19/2023) Pathologist [facility] Triglycerides 0 mg/dL Comment:No interpretation Cholesterol 0 mg/dL Comment:No interpretation HDL 0 mg/dL Comment:No interpretation LDL Cholesterol 0 mg/dL Comment:No interpretation Blood Venous blood specimen / Unknown Result [facility] Provider LAB BLOOD ORDERABLES Fauzia l Result * Urine Albumin Creatinine Ratio (05/19/2023) Pathologist [facility] Urine Albumin Creatinine Ratio Abstracted [facility] Provider HEALTH MAINTENANCE Final Result * Hemoglobin A1c (05/17/2023) Pathologist [facility] Hemoglobin A1C 0.0 % Comment:No interpretation Blood Venous blood specimen / Unknown Result [facility] Provider LAB BLOOD ORDERABLES Fauzia l Result * HIV Screening (12/06/2022) Pathologist [facility] HIV Screening Abstracted Result [facility] Provider HEALTH MAINTENANCE Final Result * Hepatitis C Screening (12/06/2022) Pathologist [facility] Hepatitis C Screening Abstracted Result [facility] Provider HEALTH MAINTENANCE Final Result from Last 3 Months or Most Recently Relevant to Health Maintenance Insurance MEDICAID - [place] Care Teams Blacking Machine Operator Relationship Specialty Start Date End Date Physician, No Pcp PCP - General 04/08/24
--- OUTSIDE RECORDS SUMMARY | 2024-07-23 08:44 | XMS_ITS | Encounter Summary ---
Author Organization [employer] Address [address] [facility] 7t [place] [address] Care Team Providers Care Reports Developer Name Role Phone Katrin Santoyo MD Primary Care Pro vider Edison Vieira MD Unavailable [phone] Joe Devi MD Unavailable [phone] Reason for Visit * Reason Comments Med Refill Encounter Details Date Type Department Care Team (Late st Contact Info) Description 01/02/2023 Refill [facility] [address] [place] [address] Elise Stanford FNP [address] [place] [address] [place] [address] Hemorrhoids, unspecified hemorrhoid type Social History Tobacco [...] Description 08/13/2024 9:45 AM EDT Office Visit [facility] [address] [place] [phone] 08/22/2024 1:15 PM EDT Office Visit [facility] [address] [place] [phone] Katrin Santoyo MD [address] [place] [address] documented as of this encounter Goals Goal [...] documented as of this encounter Care Teams Reports Developer Relationship Specialty Start Date End Date Katrin Santoyo MD [address] [place] [id number] PCP - General Internal Medicine 12/13/22 Edison Vieira MD [address] [place] [address] Pulmonary Disease 04/07/24 Joe Devi MD [address] [facility] 3rd [place] [address] Gastroenterology 04/07/24 Carito Roche DNP [address] [facility], [address] [place] [address] Nephrology 04/07/24 [employer] 04/11/24 documented as of this encounter
--- OUTSIDE RECORDS SUMMARY | 2024-07-23 08:44 | XMS_ITS | Encounter Summary ---
Author Organization [facility] Address [address] [place] [address] Care Team Providers Care Replenishment Analyst Name Role Phone LevanDeep medina Niko LOPEZ Primary Care Provider [phone] Reason for Visit * Reason Onset Date Comments Medication Refill 11/19/2021 Encounter Details Date Type Department Care Team (Late st Contact Info) Description 11/19/2021 Refill [facility] [address] [place] [address] Audelia Childs, DDS [address] [place] [address] Medication Refill Social History Tobacco [...] Recorded PHQ-2 Total Score 0 11/17/2021 [facility] of Occupat ional Health - Occupational Stress [...] documented as of this encounter Care Teams Replenishment Analyst Relationship Specialty Start Date End Date Deep Pruitt APRN PCP - General 05/22/19 documented as of this encounter
--- OUTSIDE RECORDS SUMMARY | 2024-07-23 08:44 | XMS_ITS | Encounter Summary ---
Author Organization [facility] Address [address] [place] [address] Care Team Providers Care Hot Pond Operator Name Role Phone Deep Pruitt APRN Primary Care Provider Reason for Visit * Reason Comments Medication Refill Encounter Details Date Type Department Care Team ([facility] st Contact Info) Description 01/29/2021 Refill [facility] [address] [place], [place] [phone] Deep Pruitt APRN [address] [place] [address] Medication Refill Social History Tobacco [...] Date Recorded PHQ-2 Total Score 6 01/21/2021 [facility] of Occupat ional [...] documented as of this encounter Care Teams Hot Pond Operator Relationship Specialty Start Date End Date Deep Pruitt APRN PCP - General 05/22/19 documented as of this encounter
--- OUTSIDE RECORDS SUMMARY | 2024-07-23 08:44 | XMS_ITS | Encounter Summary ---
Author Organization [facility] Address [address] [place] [address] Care Team Providers Care Business Administration Instructor Name Role Phone Deep Pruitt JOHN Primary Care Provider [phone] Encounter Details Date Type Department Care Team (Late st Contact Info) Description 01/02/2017 Scanned Document [facility] [address] [place], [place] [phone] Francisco Veloz PA [address] [place] [address] Social History Tobacco Use Types [...] as of this encounter Care Teams Business Administration Instructor Relationship Specialty Start Date End Date Deep Pruitt APRN PCP - General 05/22/19 documented as of this encounter
--- OUTSIDE RECORDS SUMMARY | 2024-07-23 08:44 | XMS_ITS | Encounter Summary ---
Author Organization [facility] Address [address] [place] [address] Care Team Providers Care Chief Scientist Name Role Phone Deep Pruitt JOHN Primary Care Provider Encounter Details Date Type Department Care Team (Late st Contact Info) Description 11/22/2017 Scanned Document [facility] [address] [place], [place] [phone] Francisco Veloz PA [address] [place] [address] Social History Tobacco Use Types [...] 1:45 PM EST COVID-19 09/29/2021 09/29/2021 10/19/2021 7:1 9 PM EDT documented as of this encounter Care Teams Chief Scientist Relationship Specialty Start Date End Date Deep Pruitt APRN PCP - General 05/22/19 documented as of this encounter
--- OUTSIDE RECORDS SUMMARY | 2024-07-23 08:44 | XMS_ITS | Encounter Summary ---
Author Organization [employer] Address [address] [facility] 7t [place] [address] Care Team Providers Care Senior Ux Developer Name Role Phone Elise Stanford GYMNASTICS COACH Primary Care Provider [phone] Katrin Santoyo MD Primary Care Pro vider Edison Vieira MD Unavailable [phone] Joe Devi MD Unavailable [phone] Encounter Details Date Type Department Care Team (Late st Contact Info) Description 12/06/2022 Telephone [facility] [address] [place] [address] Susan Manzano LPN Social History Tobacco Use [...] glucose of 411 today. Call placed via [employer] guest services director [phone] patient updated that BG this morning elevated. [...] Description 08/13/2024 9:45 AM EDT Office Visit [facility] MED[facility]INE [address] [place] [phone] 08/22/2024 1:15 PM EDT Office Visit [facility] [address] [place] [address] Katrin Santoyo MD [address] [place] [address] documented as of this encounter Visit Diagnoses Not on filedocumented in this encounter Additional Health Concerns Assessment Noted Time PHQ-9 Depression Total Score: 24 023 2:05 PM EDT documented as of this encounter Care Teams Senior Ux Developer Relationship Specialty Start Date End Date Elise Satnford FNP PCP - General Family Medicine 11/24/22 12/12/22 Katrin Santoyo MD [address] [place] [address] PCP - General Internal Medicine 12/13/22 Edison Vieira MD [address] [place] [address] Pulmonary Disease 04/07/24 Joe Devi MD 11 [facility] 3rd [place] [address] Gastroenterology 04/07/24 Carito Roche DNP [address] [facility], [address] [place] [address] Nephrology 04/07/24 [employer] 04/11/24 documented as of this encounter
--- OUTSIDE RECORDS SUMMARY | 2024-07-23 08:44 | XMS_ITS | Encounter Summary ---
Author Organization [facility] Address [address] [place] [address] Care Team Providers Care Landscape Technician Name Role Phone Katrin Santoyo MD Primary Care Pro vider Edison Vieira MD Unavailable [phone] Joe Devi MD Unavailable [phone] Encounter Details Date Type Department Care [...] t he electric, gas, oil or water [employer] threatened to shut off services in your [...] Description 08/13/2024 9:45 AM EDT Office Visit [facility] [address] [place] [phone] 08/22/2024 1:15 PM EDT Office Visit [facility] [address] [place] [address] Katrin Santoyo MD [address] [place] [address] documented as of this encounter Goals Goal [...] documented as of this encounter Care Teams Landscape Technician Relationship Specialty Start Date End Date Katrin Santoyo MD [address] [place] [address] PCP - General Internal Medicine 12/13/22 Edison Vieira MD [address] [place] [address] Pulmonary Disease 04/07/24 Joe Devi MD [address] [place] [address] Gastroenterology 04/07/24 Carito Roche DNP [address], [address] [place] [address] Nephrology 04/07/24 [facility] 04/11/24 documented as of this encounter
--- OUTSIDE RECORDS SUMMARY | 2024-07-23 08:44 | XMS_ITS | Encounter Summary ---
Author Organization [facility] Address [address] [place] [address] Care Team Providers Care Edi Architect Name Role Phone Deep Pruitt JOHN Primary Care Provider Encounter Details Date Type Department Care Team (Late st Contact Info) Description 04/05/2017 Scanned Document [facility] [address] [place], [place] [phone] Francisco Veloz PA [address] [place] [phone] Social History Tobacco Use Types Packs/Day [...] documented as of this encounter Care Teams Edi Architect Relationship Specialty Start Date End Date Deep Pruitt APRN PCP - General 05/22/19 documented as of this encounter
--- OUTSIDE RECORDS SUMMARY | 2024-07-23 08:44 | XMS_ITS | Clinical Summary ---
Author Organization [employer] Address [address] [facility] 7t [place] [address] Care Team Providers Care Negative Cutter Name Role Phone Katrin Santoyo MD Primary Care Pro vider Edison Vieira MD Unavailable [phone] Joe Devi MD Unavailable [phone] Allergies Active Allergy Reactions Criticality Noted [...] Continuous Blood Gluc Sensor (Dexcom G7 Sensor) [facility] 023 Active DULoxetine (Cymbalta) [address] [...] THE EVENING Active Blood Glucose Monitoring Suppl (MovayaStyle Avoca Lite) w/Device kitIndications: Type 2 diabetes mellitus with diabetic nephropathy, with long-term current use of insulin ([facility]) Use to test blood sugar bid dx [...] feet Active ergocalciferol (Vitamin D-2) 1.25 MG (72792 UT) capsule Take 1 capsule by mouth. Every Monday and Active lidocaine (Lidoderm) 5 % patch Apply 1 patch topically Once per day. 12 hours on and 12 hours off Active SSD 1 % cream Apply 1 Application. topically Once per day. Active FreeStyle lancetsIndicati ons:Type 2 diabetes mellitus with diabetic nephropathy, with long-term current use of insulin ([facility]) 1 each by Other route before breakfast, [...] tabletIndicatio ns:Acute kidney injury superimposed on CKD ([facility]) ([facility]),Prima ry hypertension Take 1 tablet (40 mg) [...] tab TID 28 tablet 025 Active Nebulizers [facility] Use nebulizer as instructed 1 each 025 Active Respiratory Therapy Supplies (Nebulizer/Tubi ng/Mouthpiece) kit To be used with Nebulizer 1 kit Active febuxostat (Uloric) 40 MG tablet TAKE [...] EVERY DAY 90 tablet 1 025 Active loperamide (Imodium A-D) 2 MG tablet Take 1-2 tablets (2-4 mg) by mouth if needed in the morning, at noon, in the evening, and at bedtime for diarrhea for up to 10 days. 30 tablet 025 2024 Active ezetimibe (Zetia) 10 MG tablet TAKE [...] PAIN 100 g 1 025 2024 Discontinued(R eorder (will not trigger notification to Pharmacy)) oseltamivir (Tamiflu) 75 MG capsule Take 1 capsule (75 mg) by mouth 2 times daily for 5 days. 10 capsule 025 2024 Respiratory Therapy Supplies (Nebulizer Mask Adult) misc 1 each 3 times daily for 1 day. 1 each 2 025 2024 predniSONE (Deltasone) 10 MG tabletIndicatio ns:Acute gout [...] for 2 days. 30 tablet 025 2024 doxycycline (Vibra-Tabs) 100 MG tabletIndicatio ns:Burn Take 1 tablet (100 mg) by mouth 2 times daily for 7 days. Take with a full glass of water and do not lie down for at least 30 minutes after. 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 Vieira Chest pressure 11/14/2023 [...] lesions. Secondary dental caries 10/23/2023 Fractured dental orthodox without loss of mat erial 10/23/2023 Alkaline phosphatase elevation 07/27/2023 Diabetes mellitus, labile 06/29/2023 Adrenal adenoma, right 05/18/2023 Type 2 diabetes mellitus wit h stage 3 chronic kidney disease, with long-term current use of insulin 01/23/2023 Assessment & Plan (07/18/2024 11:35 AM EDT): Lab Results Component Value Date HGBA1C 12.5 (H) 03/27/2024 - BG value improved s/p carb intake. Encouraged to continue monitoring BG closely and reviewed s/s hypoglycemia - From chart review, appears as though following with [facility] with last visit/encounter May 2024. - If not actively following with outside specialist, would be a good candidate for CDTM program Assessment & Plan (06/22/2023 12:26 AM EST): -A1C 11.2 -Check blood sugar 1-2 hours after every meal. -Continue use of glucose gel PRN. -Follow up with [facility] 2023. Chronic radicular lumbar pain 01/23/2023 Assessment & Plan (07/18/2024 11:31 AM EDT): -Good engagement and participation with Group Medical Visit model -Encouraged multifactorial approach to pain control including pharm and non- pharm modalities -Pill Count and Utox as expected Assessment & Plan (04/03/2024 4:35 PM EST): [...] of multiple topical analgesics after discussion with [facility] Pharmacist - meds sent to pharmacy below. [...] 2022, f/u appt 01/2023 Dental: Refer pt [facility] on 12/13/22 Moderate persistent asthma 11/07/2022 Overview (11/07/2022): -The Pt saw Pulmonology in [place] 6019205/21/2021 -stable with the use of Advair and [...] Will focus on improving diabetic control Discuss para educator referral at next visit F/u 1 [...] (04/07/2024 2:05 PM EST): - Following with [facility] - CASSIDY Roche - Plan [...] disordered breathing. RECOMMENDATIONS / PLAN : -Current [employer] recommendations for treatment of [...] S on 17/10 cm. - Following with [facility] Pulmonology - Dr. Vieira - Encouraged to follow up with specialist regarding DME order and new sleep study PRN Chronic post-traumatic stress disorder (PTSD) Need for home health care 01/01/2019 Overview (11/07/2022): Pt is still in the process of establishing a Visiting Nurse for home care to help manage his multiple medications Hyperlipidemia associated wi th type 2 diabetes mellitus ([facility]/HCC) 12/10/2018 Overview (11/07/2022): - LDL 90 01/25/2021 [...] told him that it is not a chcf med. He will fu w PCP next [...] told him that it is not a chcf med. He will fu w PCP next week. Use heat to affected area Diabetes mellitus with diabetic nephropathy 12/09/2022 12/13/2022 History of colonoscopy 12/09/202201/23 Overview (12/09/2022): information and pathology of colonospcy in [facility] 09-09-2020 note Hyperlipidemia due to [...] Encounters Date Type Department Care Team Description 07/19/2024 Population Health Risk Score [facility] ([facility]) Department [address] [place] [address] Provider, Population Health Generic 07/17/2024 5:00 PM EDT Office Visit [facility] [address] [place] [phone] Cleo Reynoso, ENGAGEMENT SPECIALIST Diarrhea, unspecified type (Primary Dx) 07/16/2024 9:45 AM EDT Office Visit [facility] [address] [place] [address] Moriah Herbert, ENGAGEMENT SPECIALIST Chronic radicular lumbar pain (Primary Dx); Long-term current use of opiate analgesic; Gout involving toe of left foot, unspecified cause, unspecified chronicity; Type 2 diabetes mellitus with stage 3 chronic kidney disease, with long-term current use of insulin, unspecified whether stage 3a or 3b CKD ([facility]) 07/16/2024 Travel 07/10/2024 2:00 PM EST Office Visit [facility] [address] [place] [phone] Katrin Leroy MD Lipoma of other specified sites (Primary Dx); Acute gout of left foot, unspecified cause; Primary hypertension; Burn 07/10/2024 Refill [facility] [address] [place] [phone] June Jarvis ANP Gout due to renal impairment, unspecified chronicity, unspecified site 07/03/2024 Travel 07/03/2024 Telephone [facility] [address] [place] [phone] Gabriela Rea RN r/s chronic pain group 07/03/2024 Refill [facility] [address] [place] [phone] Katrin Santoyo MD 07/02/2024 Travel 2024 11:20 AM EST Office Visit [facility] [address] [place] [phone] Dhara Cardenas MD Acute bronchitis, unspecified organism (Primary Dx); Influenza A 2024 Telephone [facility] [address] [place] [phone] Katrin Santoyo MD Med Refill 2024 Refill [facility] [address] [place] [phone] aKtrin Santoyo MD 06/25/2024 Refill [facility] [address] [place] [phone] Katrin Santoyo MD 06/21/2024 Refill [facility] [address] [place] [address] Katrin Santoyo MD Moderate persistent asthma without complication 06/11/2024 Telephone [facility] [address] [place] [address] Emili Cordero, CASIE 06/10/2024 Telephone [facility] [address] [place] [phone] Shirin Albarran MD No Show 06/06/2024 Telephone [facility] [address] [place] [address] Katrin Santoyo MD FYI 06/06/2024 Telephone [facility] [address] [place] [phone] Katrin Santoyo MD Nurse Triage 06/05/2024 Telephone [facility] [address] [place] [address] Gabriela Rea, CASIE Error (VOID this visit) 05/30/2024 Telephone [facility] [address] [place] [phone] Katrin Santoyo MD Nurse Triage 05/22/2024 Telephone [facility] [address] [place] [phone] Katrin Santoyo MD FYI 05/17/2024 Refill [facility] [address] [place] [phone] Moriah Herbert FNP Chronic radicular lumbar pain 05/17/2024 Refill [facility] [address] [place] [address] Shanna Henao MD Chronic radicular lumbar pain 05/12/2024 Refill [facility] [address] [place] [address] Katrin Santoyo MD 04/30/2024 Telephone [facility] [address] [place] [address] Katrin Santoyo MD Nurse Triage 04/26/2024 Refill [facility] [address] [place] [address] Katrin Santoyo MD from Last 3 Months Immunizations Name Administration [...] Mass Index 41.69 07/17/2024 4:42 PM EDT Plan of Treatment Upcoming Encounters Date Type Department Care Team (Late st Contact Info) Description 08/13/2024 9:45 AM EDT Office Visit [facility] [address] [place] [phone] 08/22/2024 1:15 PM EDT Office Visit [facility] [address] [place] [phone] Katrin Santoyo MD [address] [place] [phone] Health Maintenance Due Date Last Done Comments [...] 11/13/2023, 11/13/2023, Additional history exists Tobacco Screening 07/17/2025 07/17/2024 DTaP/Tdap/Td Vaccines (3 - Td or Tdap) [...] stage 3a or 3b CKD (CMS/HCC) POCT GLUCOSE Routine 07/19/2024 9:17 AM EDT Type 2 diabetes mellitus with stage 3 chronic kidney disease, with long-term current use of insulin, unspecified whether stage 3a or 3b CKD (CMS/HCC) POCT RIKKI-14 URINE DRUG SCREEN Routine 07/16/2024 11:31 AM EDT Chronic radicular lumbar pain POCT INFLUENZA A (ID NOW RAPID MOLECULAR) [...] Recently Relevant to Health Maintenance Results * POCT Glucose (07/19/2024 9:19 AM EDT) Only the most recent of2 resultswithin the time period is included. Glucose Blood, POC 105 60 - 200 mg/dL Comment:random QC Media Lot # [id number] Lot# Expiration Date Blood Capillary blood specimen / Unknown 07/19/2024 9:19 AM EDT Moriah Herbert [facility] POINT OF CARE TEST ENTER/EDIT ORDERABLES Final Result * POCT RIKKI-14 Urine Drug Screen (07/16/2024 11:31 AM EDT) Urine Urine specimen obtained by clean catch procedure / Unknown 07/16/2024 11:31 AM EDT Narrative Emili Cordero RN - 07/16/2024 11:31 AM EDT UTOX cup Lot#[id number] Exp. 12/25/25 Internal Pass Control UTOX Negative for all substances. Moriah Herbert [facility] POINT OF CARE TEST ENTER/EDIT ORDERABLES Final Result * (ABNORMAL) Influenza A (ID NOW Rapid Molecular) (2024 11:09 AM EST) Pathologist [facility] Influenza A Positive( A) Negative, Indeterminate [facility] Swab 2024 11:0 9 AM EST Dhara Cardenas MD POINT OF CARE TEST ENTER/EDIT OR DERABLES Final Result [facility] [address] [place] [address] [phone] * Influenza B (ID NOW Rapid Molecular) (2024 11:08 AM EST) Influenza B Negative Negative, Indeterminate [facility] Swab 2024 11:0 8 AM EST Dhara Cardenas MD POINT OF CARE TEST ENTER/EDIT OR DERABLES Final Result Performing Organization Address City/[facility] Co de Phone Number [facility] [address] [place] [address] [phone] * POCT Rapid COVID Ag (2024 11:08 AM EST) Pathologist [facility] Rapid COVID Ag Negative Swab 2024 11:0 8 AM EST Dhara Cardenas MD POINT OF CARE TEST ENTER/EDIT OR DERABLES Final Result * (ABNORMAL) Hemoglobin A1c (03/27/2024 3:40 PM EST) Pathologist [facility] Hemoglobin A1c 12.5(H) <6.0 % [facility] Comment:Hemoglobin A1C Refer ence Range Adults: 4.8 - 6.0 % Non diabetic: < 6.0 % Goal: < 7.0 %Additional Action Suggested: > 8.0 %Note: Hemoglobin A1c results are invalid for patients with abnormal amounts of HbF. Blood transfusions may impact the HbA1c concentration in the patient sample. Estimated Average Glucose 312 mg/dL [facility] Comment:eAG = Estimated ave rage glucose which is %A1C expressed asaverage glucose, using the formula of the P5D-CudwajxOyawaue Glucose study (ADAG), Diabetes Care, Vol.31,#8,Dec. 2007 03/27/2024 3:40 PM EST 03/27/2024 6:33 PM EST us Generic External Data Provider LAB BLOOD ORDERAB LES Final Result Performing Organization Address [facility] Co de Phone Number [facility] [address] [place] [address] [phone] * (ABNORMAL) Lipid Panel, Standard (09/19/2023 1:43 PM EDT) Triglycerides 316(H) <150 mg/dL [facility] Comment:Desirable Triglyceri de: less than 150 mg/dLBorderline High Triglyceride 150-199 mg/dLHigh Triglyceride: 200-499 mg/dLVery High Triglyceride: greater than or equal to 5OO mg/dL Cholesterol 164 <200 mg/dL [facility] Comment:Desirable Cholestero l: less than 200 mg/dLBorderline High Cholesterol: 200-239 mg/dLHigh Cholesterol: greater than 239 mg/dL LDL Cholesterol Calculated 60 <100 mg/dL [facility] Comment:Desirable LDL: less than 100 mg/dLNear Optimal/Above Optimal LDL: 110- 129 mg/dLBorderline High LDL: 130-159 mg/dLHigh LDL: 160-189 mg/dLVery High LDL: greater than or equal to 190 mg/dL HDL Cholesterol 41 >40 mg/dL [facility] Comment:Desirable HDL: great er than 40 mg/dL Note: This HDL assay may give artificially low results in patients with liver disease. Blood Venous blood specimen / Unknown 09/19/2023 1:43 PM EDT 09/19/2023 3:53 PM EDT us Katrin López MD LAB BLOOD ORDERAB LES Final Result Performing Organization Address City/[facility]/ZIP Co de Phone Number [facility] [address] [place] [address] [phone] * HIV Ab/Ag (LOU JEFFRIES) (12/06/2022 10:21 AM EDT) HIV AB/AG Nonreactive Nonreactive [facility] Comment:HIV-1 p24 Ag and/or HIV-1/HIV-2 Ab not detected.A test result that is nonreactive does not exclude thepossibility of exposure to or infection with HIV-1 and/orHIV-2. Nonreactive results in this assay for individualswith prior exposure to HIV-1 and/or HIV-2 may be due toantigen and antibody levels that are below the limit ofdetection of this assay.The [employer] Tool Sharpener HIV Ag/Ab Combo assay result andsupplemental assay results should be interpreted inconjunction with the patient's clinical presentation,history and other laboratory results. If the results areinconsistent with clinical evidence, additional testing issuggested to confirm the result. 12/06/2022 10:2 1 AM EDT 12/06/2022 11:17 AM EDT [facility] LAB BLOOD ORDERABLES Final Result Performing Organization Address [facility] Co de Phone Number [facility] [address] [place] [phone] * Hepatitis Panel, General (12/06/2022 10:21 AM EDT) Hepatitis A IgM Nonreactive Nonreactive [facility] Comment:IgM antibodies to VILLANUEVA V not detected; does not exclude earlyacute or recovered HAV infection. ~Hepatitis B Surface Antibody REACTIVE Nonreactive [facility] Comment:REACTIVE: > 11.99 mI U/mL Hepatitis B Core Antibody Nonreactive Nonreactive [facility] Hepatitis C Antibody Nonreactive Nonreactive [facility] Comment:Antibodies to HCV no t detected; does not exclude early acuteHCV infection. Hepatitis B Surface Ag Negative Negative [facility] Blood 12/06/2022 10:2 1 AM EDT 12/06/2022 11:17 AM EDT Elise Castro [facility] LAB BLOOD ORDERABLES Final Result Performing Organization Address [facility] Co de Phone Number [facility] [address] [place] [phone] from Last 3 Months or Most Recently Relevant to Health Maintenance Insurance [place] [facility] MEDICAID STAND ADULT Care Teams Negative Cutter Relationship Specialty Start Date End Date Katrin Santoyo MD [address] [place] [phone] PCP - General Internal Medicine 12/13/22 Edison Vieira MD [address] [place] [address] Pulmonary Disease 04/07/24 Joe Devi MD [address] 3rd [place] [address] Gastroenterology 04/07/24 Carito Roche DNP [address] [facility], [address] [place] [address] Nephrology 04/07/24 [employer] 04/11/24
--- OUTSIDE RECORDS SUMMARY | 2024-07-23 08:44 | XMS_ITS | Encounter Summary ---
Author Organization [employer] Address [address] [facility] 7t [place] [address] Care Team Providers Care Capsule Inspector Name Role Phone Katrin Santoyo MD Primary Care Pro vider Edison Vieira MD Unavailable [phone] Joe Devi MD Unavailable [phone] Reason for Visit * Reason Onset Date Comments r/s chronic pain group 07/03/2024 Encounter Details Date Type Department Care Team ([facility] Contact Info) Description 07/03/2024 Telephone [facility] [address] [place] [address] Gabriela Rea, RN [address] [place] [address] r/s chronic pain group Social History Tobacco [...] 07/02/24. TC to pt via S ID# [id number]. Appt r/s to 07/16/24 @ 9:30am. documented in this encounter Plan of Treatment Upcoming Encounters Date Type Department Care Team (Late st Contact Info) Description 08/13/2024 9:45 AM EDT Office Visit [facility] [address] [place] [phone] 08/22/2024 1:15 PM EDT Office Visit [facility] [address] [place] [phone] Katrin Santoyo MD [address] [place] [address] documented as of this encounter Goals Goal Patient Goal Type Associated Problems Recent Progress Patient-Stated? Author Blood Pressure < 140/90 Blood Pressure 166/96(2024 4:42 PM EDT) No Eve Guzman PharmD Hemoglobin A1c < 7 Result Component 12.5(03/27/20 3:40 PM EST) Eve Merida, Diane documented as of this encounter Visit Diagnoses Not on filedocumented in this encounter Additional Health Concerns Assessment Noted Time PHQ-9 Depression Total Score: 4 10/31/19 10:32 AM EDT documented as of this encounter Care Teams Capsule Inspector Relationship Specialty Start Date End Date Katrin Santoyo MD [address] [place] [phone] PCP - General Internal Medicine 12/13/22 Edison Vieira MD [address] [place] [address] Pulmonary Disease 04/07/24 Joe Devi MD [address] [facility] 3rd [place] [address] Gastroenterology 04/07/24 Carito Roche DNP [address] [facility], [address] [place] [address] Nephrology 04/07/24 Aveso 04/11/24 documented as of this encounter
--- OUTSIDE RECORDS SUMMARY | 2024-07-23 08:44 | XMS_ITS | Clinical Summary ---
Author Organization [facility] Address [address] [facility] [address] [place] [address] Phone Care Team Providers Care Telemarketing Supervisor Name Role Phone Katrin Brumfield Primary Care [...] 4 12/04/19 25 Active ergocalciferol 1.25 MG (93655 UT) capsule Take 1 capsule (50,000 Units [...] (01/25/2023): information and pathology of colonospcy in [facility] 09-09-2020 note Asthma 01/06/2023 01/25/2023 Arthritis [...] AM with Arben Fountain DPM at the [facility] -Will f/u with Pt in a [...] send the Pt to Hematology Results for DARRLE BHARDWAJ ( ) as of 11/18/2020 15:14 [...] (see MRI of Brain from 2017 under [facility] Multimedia -Significant deficits on neurologic exam Memory loss and Left handed weakness -Imaging and prior evaluation -Current blood thinning agents is aspirin -Potential details to include, when relevant: poor GAIT, uses a walker to get around -How the diagnosis was made: Pt lived in [facility] at the time, [facility] see specific file at specific date [id number].TIF Image MRI Result [facility] - MRI BRAIN CVA -09/25/2016 [id number].TIF Image Evaluation [facility]- Left handed weakness note - 02/20/2017 [...] 2019, the Pt needs to call the [facility] [address] [place], [place] [phone] Diabetic foot 02/07/2019 01/25/2023 01/25/2023 Overview (01/25/2023): Last Assessment & Plan: The Pt continues to deal with bilateral foot pain and wears a pair of Diabetic shoes with specification ordered by his Mechanical Shovel Operator Doctor Patient encounter status 02/07/2019 01/25/2023 [...] -Pt will be called biweekly by the [facility] Nurse to review his FBS [...] medications -He has been following with the [place] [facility] team and reports taking all of [...] decided to move [place] back to [place] area due to being closer to family [...] , 03/24/2022, Additional history exists [place] Care Teams Telemarketing Supervisor Relationship Specialty Start Date End Date Katrin Brumfield [address] [place] [phone] PCP - General 04/17/23
--- OUTSIDE RECORDS SUMMARY | 2024-07-23 08:44 | XMS_ITS | Encounter Summary ---
Author Organization [facility] [employer] [facility] Address [address] [place] [phone] Care Team Providers Care Mechanical Press Operator Name Role Phone Deep Pruitt APRN Primary Care Provider Reason for Visit * Reason Onset Date Comments Medication Refill 11/19/2021 Encounter Details Date Type Department Care Team (Late st Contact Info) Description 11/19/2021 Refill [facility] [address] [facility] [address] [facility] 2nd [place] [address] Yue Dominguez APRN [address] [place] [phone] Medication Refill Social History Tobacco Use Types [...] documented as of this encounter Care Teams Mechanical Press Operator Relationship Specialty Start Date End Date Deep Pruitt APRN PCP - General 05/22/19 documented as of this encounter
--- OUTSIDE RECORDS SUMMARY | 2024-07-23 08:44 | XMS_ITS | Encounter Summary ---
Author Organization [employer] Address [address] [facility] 7t [place] [address] Care Team Providers Care Deadener Name Role Phone Katrin Santoyo MD Primary Care Pro vider Edison Vieira MD Unavailable [phone] Joe Devi MD Unavailable [phone] Reason for Referral * Consultation (Routine) - Authorized Specialty Diagnoses / Procedures Referred By Contac t Referred To Contact General Surgery Diagnoses Lipoma of other specified sites Katrin Leroy MD [address] [place] [address] Phone: tel: fax: [facility] General Surgery [address] [place] [address] Phone: tel: fax: Referral ID Status Reason Start Date Expiration Date Visits Requested Visits Authorized [id number] Authorized Specialty Services Required 07/10/2024 07/10/2025 12 12 Encounter Details Date Type Department Care Team (Late st Contact Info) Description 07/10/2024 2:00 PM EST Office Visit [facility] [address] [place] [address] [phone] Katrin Leroy MD [address] [place] [address] [phone] Lipoma of other specified sites (Primary Dx); [...] albuminuria creatinine ratio greater than 300 mg/g (CMS/HCC) Chronic post-traumatic stress disorder (PTSD) Constipation Elevated [...] phosphatase elevation Secondary dental caries Fractured dental lutheran without loss of material Right foot pain [...] MINI PEN NEEDLES 31G X 5 MM [facility] Use as instructed 100 each 11 Blood Glucose Monitoring Suppl (uGift Furlong Lite) w/Device kit Use to test blood [...] Continuous Blood Gluc Sensor (Dexcom G7 Sensor) [facility] Dextromethorphan-guaiFENesin (Mucinex DM) 30-600 MG tablet sustained-release [...] capsule 1 ergocalciferol (Vitamin D-2) 1.25 MG (69690 UT) capsule Take 1 capsule by mouth. [...] hours on and 12 hours off Nebulizers [facility] Use nebulizer as instructed 1 each 0 [...] Description 08/13/2024 9:45 AM EDT Office Visit [address] [address] 08/22/2024 1:15 PM EDT Office Visit [address] [address] Katrin Santoyo MD [address] [place] [address] Scheduled Referrals Name Type Priority Associated Diagnoses Orde r Schedule Referral to General Surgery Outpatient Referral Routine Lipoma of other specified sites Expected: 07/10/2024 (Approximate), Expires: 07/10/2025 documented as of this encounter Goals Goal Patient Goal Type Associated Problems Recent Progress Patient-Stated? Author Blood Pressure < 140/90 Blood Pressure 166/96(2024 4:42 PM EDT) No Eve Guzman, PharmD Hemoglobin A1c < [...] documented as of this encounter Care Teams Deadener Relationship Specialty Start Date End Date Katrin Santoyo MD [address] [place] [address] PCP - General Internal Medicine 12/13/22 [place] Vieira MD [address] [place] [address] Pulmonary Disease 04/07/24 Joe Devi MD [address] 3rd [place] [address] Gastroenterology 04/07/24 Carito Roche DNP [address], [address] [place] [address] Nephrology 04/07/24 [employer] 04/11/24 documented as of this encounter
--- OUTSIDE RECORDS SUMMARY | 2024-07-23 08:44 | XMS_ITS | Encounter Summary ---
Author Organization [employer] [facility] Address [address] [facility] 7t [place] [address] Care Team Providers Care Electrolysis Operator Name Role Phone Elise Stanford Primary Care Provider [phone] Katrin Santoyo MD Primary Care Pro vider [place] Vieira MD Unavailable [phone] Joe Devi MD Unavailable [phone] Encounter Details Date Type Department Care Team (Latest Contact Info) Description 09/04/2018 Abstract [facility] CONVERSIONS Dental, Provider, DDS Social History [...] Description 08/13/2024 9:45 AM EDT Office Visit [facility] MEDIC[facility] [address] [place] [address] 08/22/2024 1:15 PM EDT Office Visit [facility] [address] [place] [address] [phone] Katrin Santoyo MD [address] [place] [address] documented as of this encounter Visit Diagnoses Not on filedocumented in this encounter Care Teams Electrolysis Operator Relationship Specialty Start Date End Date Elise Stanford FNP PCP - General Family Medicine 11/24/22 12/12/22 Katrin Santoyo MD [address] [place] [address] PCP - General Internal Medicine 12/13/22 [place] Vieira MD 5 [place] [address] Pulmonary Disease 04/07/24 Joe Devi MD [address] [facility] 3rd [place] [address] Gastroenterology 04/07/24 Carito Roche DNP [address] [facility], [address] [place] [address] Nephrology 04/07/24 [employer] 04/11/24 documented as of this encounter
--- OUTSIDE RECORDS SUMMARY | 2024-07-23 08:44 | XMS_ITS | Encounter Summary ---
Author Organization [facility] Address [address] [place] [address] Care Team Providers Care Traffic Rate Clerk Name Role Phone Deep Pruitt JOHN Primary Care Provider Encounter Details Date Type Department Care Team (Late st Contact Info) Description 02/12/2016 Scanned Document [facility] [address] [place] [address] Francisco Veloz PA [address] [place] [phone] Social History Tobacco Use Types Packs/Day [...] documented as of this encounter Care Teams Traffic Rate Clerk Relationship Specialty Start Date End Date Deep Pruitt APRN PCP - General 05/22/19 documented as of this encounter
--- OUTSIDE RECORDS SUMMARY | 2024-07-23 08:44 | XMS_ITS | Encounter Summary ---
Author Organization [facility] Address [address] [place] [address] Care Team Providers Care Extension Service Specialist In Charge Name Role Phone Deep Pruitt APRN Primary Care Provider Reason for Visit * Reason Onset Date Comments Medication Refill 11/10/2021 Encounter Details Date Type Department Care Team (Late st Contact Info) Description 11/10/2021 Refill [facility] [address] [place], [place] [phone] Anahi Rossi, JOHN [address] [place] [address] Medication Refill Social History Tobacco [...] Date Recorded PHQ-2 Total Score 0 10/12/2021 [facility] of Occupat ional [facility] - Occupational Stress Questionnaire Answer Date [...] documented as of this encounter Care Teams Extension Service Specialist In Charge Relationship Specialty Start Date End Date Deep Pruitt APRN PCP - General 05/22/19 documented as of this encounter
--- OUTSIDE RECORDS SUMMARY | 2024-07-23 08:44 | XMS_ITS | Encounter Summary ---
Author Organization [facility] Address [address] [place] [address] Care Team Providers Care Avionic Technician Name Role Phone FolkstonDeep medina Niko LOPEZ Primary Care Provider [phone] Encounter Details Date Type Department Care Team (Late st Contact Info) Description 02/19/2020 Scanned Document [facility] [address] [place], [place] [phone] Arben Fountain, NOLVIA [address] [place] [address] Social History Tobacco Use Types [...] Answer Date Recorded PHQ-2 Score 2 10/02/2019 [facility] of Occupat ional Health - Occupational Stress [...] documented as of this encounter Care Teams Avionic Technician Relationship Specialty Start Date End Date Deep Pruitt APRN PCP - General 05/22/19 documented as of this encounter
--- OUTSIDE RECORDS SUMMARY | 2024-07-23 08:44 | XMS_ITS | Encounter Summary ---
Author Organization [facility] Address [address] [place] [address] Care Team Providers Care Campaign Developer Name Role Phone Deep Pruitt JOHN Primary Care Provider Encounter Details Date Type Department Care Team (Late st Contact Info) Description 01/17/2019 Scanned Document [facility] [address] [place], [place] [phone] External, Provider Social History Tobacco Use Types [...] documented as of this encounter Care Teams Campaign Developer Relationship Specialty Start Date End Date Deep Pruitt APRN PCP - General 05/22/19 documented as of this encounter
--- OUTSIDE RECORDS SUMMARY | 2024-07-23 08:44 | XMS_ITS | Encounter Summary ---
Author Organization [facility] Address [address] [facility] 7t [place] [address] Care Team Providers Care Supply Service Worker Name Role Phone Elise Stanford Primary Care Provider [phone] Katrin Santoyo MD Primary Care Pro vider [place] Vieira MD Unavailable [phone] Joe Devi MD Unavailable [phone] Reason for Visit * Reason Onset Date Comments Referral 11/24/2022 Podiatry Encounter Details Date Type Department Care Team (Late st Contact Info) Description 11/24/2022 Telephone [facility] [address] [place] [address] Elise Stanford FNP [address] [place] [address] [place] [address] Referral (Podiatry/) Social History Tobacco Use Types [...] Miscellaneous Notes * Telephone Encounter - Anne Ocasoi - 11/29/2022 9:46 AM EDT Ice Platform Supervisor re-faxed referral to Dr. Smith's office. Ice Platform Supervisor called Dr. Smith's office and confirmed that referral was received. Ice Platform Supervisor attempted to call patient twice to infirm that he may call to schedule his appt but did not answer and voicemail could not be left due to pt not having voicemail setup. Dr. Smith [address] [place] [address] FAX [phone] * Telephone Encounter - Elizabeth Melo - 11/24/2022 9:51 AM EDT Tc from patient requesting status on podiatry referral. Ice Platform Supervisor provided address and phone number and patient stated they told him they don't have a referral or any notes for referral. Patient states he let them know of referral letter and they stated they still need notes to be seen. documented in this encounter Plan of Treatment Upcoming Encounters Date Type Department Care Team ([facility] st Contact Info) Description 08/13/2024 9:45 AM EDT Office Visit [address] [address] 08/22/2024 1:15 PM EDT Office Visit [address] [address] Katrin Santoyo MD [address] [place] [address] documented as of this encounter Visit Diagnoses Not on filedocumented in this encounter Additional Health Concerns Assessment Noted Time PHQ-9 Depression Total Score: 24 11/18/ 023 2:05 PM EDT documented as of this encounter Care Teams Supply Service Worker Relationship Specialty Start Date End Date Elise Stanford FNP PCP - General Family Medicine 11/24/22 12/12/22 Katrin Santoyo MD [address] [place] [address] PCP - General Internal Medicine 12/13/22 [place] Vieira MD [address] [place] [address] Pulmonary Disease 04/07/24 Joe Devi MD [address] [facility] 3rd [place] [address] Gastroenterology 04/07/24 Carito Roche DNP [address] [facility], [address] [place] [address] Nephrology 04/07/24 [employer] 04/11/24 documented as of this encounter
--- OUTSIDE RECORDS SUMMARY | 2024-07-23 08:44 | XMS_ITS | Encounter Summary ---
Author Organization [facility] Address [address] [place] [address] Care Team Providers Care Cook Manager Name Role Phone Deep Pruitt JOHN Primary Care Provider Encounter Details Date Type Department Care Team (Late st Contact Info) Description 02/13/2018 Scanned Document [facility] [address] [place] [address] Francisco Veloz PA [address] [place] [phone] Social History Tobacco Use Types Packs/Day [...] documented as of this encounter Care Teams Cook Manager Relationship Specialty Start Date End Date Deep Pruitt APRN PCP - General 05/22/19 documented as of this encounter
--- OUTSIDE RECORDS SUMMARY | 2024-07-23 08:44 | XMS_ITS | Encounter Summary ---
Author Organization [facility] Address [address] [place] [address] Care Team Providers Care Windows Systems Administrator Name Role Phone Deep Pruitt JOHN Primary Care Provider [phone] Encounter Details Date Type Department Care Team (Late st Contact Info) Description 01/01/2018 Scanned Document [facility] [address] [place], [place] 8226[address] Francisco Veloz PA [address] [place] [phone] Social History Tobacco Use Types Packs/Day [...] documented as of this encounter Care Teams Windows Systems Administrator Relationship Specialty Start Date End Date Deep Pruitt APRN PCP - General 05/22/19 documented as of this encounter
--- OUTSIDE RECORDS SUMMARY | 2024-07-23 08:44 | XMS_ITS | Encounter Summary ---
Author Organization [employer] Address [address] [facility] [address] 7t [place] [address] Care Team Providers Care Journeyman Electrician Name Role Phone Katrin Santoyo MD Primary Care Pro vider [place] Vieira MD Unavailable [phone] Joe Devi MD Unavailable [phone] Reason for Visit * Reason Comments Med Refill Encounter Details Date Type Department Care Team (Late st Contact Info) Description 07/10/2024 Refill [facility] [address] [place], [place] [phone] June Jarvis ANP [address] [place], [place] [phone] Gout due to renal impairment, unspecified chronicity, [...] EDT Office Visit [facility] [address] [place] [address] 08/22/2024 1:15 PM EDT Office Visit [facility] [address] [place] [address] Katrin Santoyo MD [address] [place] [address] documented as of this encounter Goals Goal [...] documented as of this encounter Care Teams Journeyman Electrician Relationship Specialty Start Date End Date Katrin Santoyo MD [address] [place] [address] PCP - General Internal Medicine 12/13/22 [place] Vieira MD [address] [place] [address] Pulmonary Disease 04/07/24 Joe Devi MD [address] [facility] [place] 3rd [place] [address] Gastroenterology 04/07/24 Carito Roche DNP [address] [facility] [place], [address] [place] [address] Nephrology 04/07/24 [employer] 04/11/24 documented as of this encounter
--- OUTSIDE RECORDS SUMMARY | 2024-07-23 08:45 | XMS_ITS | Encounter Summary ---
Author Organization [employer] [facility] Address [address] [place] [address] Care Team Providers Care Electrical Software Engineer Name Role Phone OlcottDeep medina Niko LOPEZ Primary Care Provider Reason for Visit * Reason Onset Date Comments Medication Refill 09/22/2021 Encounter Details Date Type Department Care Team (Late st Contact Info) Description 09/22/2021 Refill [facility] Nutrition at [address] [address] Zena Hines PA [address] [place] [phone] Medication Refill Social History Tobacco Use [...] is no longer seeing Zena Hines at [facility] for DM mangement. Nate, Katrin documented in [...] documented as of this encounter Care Teams Electrical Software Engineer Relationship Specialty Start Date End Date Deep Pruitt APRN PCP - General 05/22/19 documented as of this encounter
--- OUTSIDE RECORDS SUMMARY | 2024-07-23 08:45 | XMS_ITS | Encounter Summary ---
Author Organization [employer] Address [address] [facility] [address] 7t [place] [address] Care Team Providers Care Security Systems Engineer Name Role Phone Katrin Santoyo MD Primary Care Pro vider [place] Vieira MD Unavailable [phone] Joe Devi MD Unavailable [phone] Encounter Details Date Type Department Care [...] t he electric, gas, oil or water [email or web address] threatened to shut off services in your [...] Description 08/13/2024 9:45 AM EDT Office Visit [facility] [address] [place] [address] [phone] 08/22/2024 1:15 PM EDT Office Visit [facility] [address] [place] [address] Katrin Santoyo MD [address] [place] [address] documented as of this encounter Goals Goal [...] documented as of this encounter Care Teams Security Systems Engineer Relationship Specialty Start Date End Date Katrin Santoyo MD [address] [place] [address] PCP - General Internal Medicine 12/13/22 [place] Vieira MD [address] [place] [address] Pulmonary Disease 04/07/24 Joe Devi MD [address] 3rd [place] [address] Gastroenterology 04/07/24 Carito Roche DNP [address], [address] [place] [address] Nephrology 04/07/24 [employer] 04/11/24 documented as of this encounter
--- OUTSIDE RECORDS SUMMARY | 2024-07-23 08:45 | XMS_ITS | Encounter Summary ---
Author Organization [employer] [facility] Address [address] [place] [address] Care Team Providers Care Practicing Dermatologist Name Role Phone Deep Pruitt APRN Primary Care Provider [phone] Reason for Visit * Reason Comments Medication Refill Encounter Details Date Type Department Care Team ([facility] st Contact Info) Description 11/11/2020 Refill [facility] [address] [place] [address] Deep Pruitt APRN [address] [place] [phone] Medication Refill Social History Tobacco Use [...] Answer Date Recorded PHQ-2 Score 2 07/07/2020 [facility] of Occupat ional [facility] - Occupational Stress Questionnaire Answer [...] documented as of this encounter Care Teams Practicing Dermatologist Relationship Specialty Start Date End Date Deep Pruitt APRN PCP - General 05/22/19 documented as of this encounter
--- OUTSIDE RECORDS SUMMARY | 2024-07-23 08:45 | XMS_ITS | Encounter Summary ---
Author Organization [facility] Address [address] [place] [address] Care Team Providers Care Potato Chip Cooker Machine Name Role Phone Deep Pruitt APRN Primary Care Provider Reason for Visit * Reason Onset Date Comments Medication Refill 10/12/2021 Encounter Details Date Type Department Care Team (Late st Contact Info) Description 10/12/2021 Refill [facility] [address] [place] [address] Anahi Rossi, JOHN [address] [place] [address] Medication Refill Social History Tobacco [...] Date Recorded PHQ-2 Total Score 0 10/12/2021 [facility] of Occupat ional [facility] - Occupational Stress Questionnaire Answer Date Recorded [...] documented as of this encounter Care Teams Potato Chip Cooker Machine Relationship Specialty Start Date End Date Deep Pruitt APRN PCP - General 05/22/19 documented as of this encounter
--- OUTSIDE RECORDS SUMMARY | 2024-07-23 08:45 | XMS_ITS | Encounter Summary ---
Author Organization [facility] [employer] [facility] Address [address] [place] [address] Care Team Providers Care Plaster Tender Name Role Phone Deep Pruitt APRN Primary Care Provider Reason for Visit * Reason Onset Date Comments Medication Refill 09/30/2021 Encounter Details Date Type Department Care Team (Late st Contact Info) Description 09/30/2021 Refill [facility] [address] [phone] [facility] [address]nd [place] [address] Kaity Harris, HR DIRECTOR [address] [place] [phone] Medication Refill Social History Tobacco Use Types [...] Score 5 09/14/2021 [facility] - Occupational Stress Questionnaire [...] documented as of this encounter Care Teams Plaster Tender Relationship Specialty Start Date End Date Deep Pruitt APRN PCP - General 05/22/19 documented as of this encounter
--- OUTSIDE RECORDS SUMMARY | 2024-07-23 08:45 | XMS_ITS | Encounter Summary ---
Author Organization [employer] [facility] Address [address] [place] [address] Care Team Providers Care Loan Adviser Name Role Phone Deep Pruitt APRN Primary Care Provider Reason for Visit * Reason Comments Medication Refill Encounter Details Date Type Department Care Team ([facility] st Contact Info) Description 02/01/2021 Refill [facility] [address] [place], [place] [phone] Deep Pruitt APRN [address] [place] [address] Medication Refill Social History Tobacco [...] Date Recorded PHQ-2 Total Score 6 01/21/2021 [facility] of Occupat ional Health [...] as of this encounter Care Teams Loan Adviser Relationship Specialty Start Date End Date Deep Pruitt APRN PCP - General 05/22/19 documented as of this encounter
--- OUTSIDE RECORDS SUMMARY | 2024-07-23 08:45 | XMS_ITS | Encounter Summary ---
Author Organization [facility] [employer] [facility] Address [address] [place] [phone] Care Team Providers Care Publications Production Supervisor Name Role Phone Deep Pruitt APRN Primary Care Provider Reason for Visit * Reason Onset Date Comments Medication Refill 09/20/2021 Encounter Details Date Type Department Care Team (Late st Contact Info) Description 09/20/2021 Refill [facility] [address] [facility] [address] [facility] 2nd [place] [address] Ricarda Du MD [address] [place] [phone] Medication Refill Social History Tobacco Use Types [...] Date Recorded PHQ-2 Total Score 5 09/14/2021 [facility] of Occupat ional [...] documented as of this encounter Care Teams Publications Production Supervisor Relationship Specialty Start Date End Date Deep Pruitt APRN PCP - General 05/22/19 documented as of this encounter
--- OUTSIDE RECORDS SUMMARY | 2024-07-23 08:45 | XMS_ITS | Encounter Summary ---
Author Organization [facility] [employer] [facility] Address [address] [place] [phone] Care Team Providers Care Supervisor Facepiece Line Name Role Phone Deep Pruitt APRN Primary Care Provider Reason for Visit * Reason Onset Date Comments Medication Refill 09/22/2021 Encounter Details Date Type Department Care Team (Late st Contact Info) Description 09/22/2021 Refill [facility] at [address] [address] [facility] 2nd [place] [address] Kaity Harris, DIRECTOR WORK [address] [place] [phone] Medication Refill Social History Tobacco Use Types [...] Date Recorded PHQ-2 Total Score 5 09/14/2021 [facility] - Occupational Stress Questionnaire Answer [...] as of this encounter Care Teams Supervisor Facepiece Line Relationship Specialty Start Date End Date Deep Pruitt APRN PCP - General 05/22/19 documented as of this encounter
--- OUTSIDE RECORDS SUMMARY | 2024-07-23 08:45 | XMS_ITS | Encounter Summary ---
Author Organization [facility] Address [address] [place] [address] Care Team Providers Care Oven Tender Bagels Name Role Phone Deep Pruitt APRN Primary Care Provider Encounter Details Date Type Department Care Team ([facility] st Contact Info) Description 11/14/2020 Scanned Document [facility] [address] [place], [place] [phone] Deep Pruitt APRN [address] [place] [address] Social History Tobacco Use Types [...] Date Recorded PHQ-2 Total Score 0 11/18/2020 [facility] of Occupat ional Health [...] documented as of this encounter Care Teams Oven Tender Bagels Relationship Specialty Start Date End Date Deep Pruitt APRN PCP - General 05/22/19 documented as of this encounter
--- OUTSIDE RECORDS SUMMARY | 2024-07-23 08:45 | XMS_ITS | Encounter Summary ---
Author Organization [facility] Address [address] [place] [address] Care Team Providers Care Sensor Specialist Name Role Phone Deep Pruitt APRN Primary Care Provider Reason for Visit * Reason Comments Other Appointment Encounter Details Date Type Department Care Team ([facility] Contact Info) Description 10/07/2021 Telephone [facility] [address] [place] [address] Deep Pruitt APRN [address] [place] [address] Other; Appointment Social History Tobacco [...] Date Recorded PHQ-2 Total Score 0 10/07/2021 [facility] of [...] after dropped call ,patient has virtual appt [phone] documented in this encounter Plan of Treatment Not on file documented as of this encounter Visit Diagnoses Not on filedocumented in this encounter Additional Health Concerns Infection Onset Date Last Indicated Resolved Time COVID-19 09/29/2021 09/29/2021 10/19/2021 7:19 PM EDT Assessment Noted Time PHQ-9 Depression Total Score: 0 10/08/19 22 1:27 PM EDT documented as of this encounter Care Teams Sensor Specialist Relationship Specialty Start Date End Date Deep Pruitt APRN PCP - General 05/22/19 documented as of this encounter
--- OUTSIDE RECORDS SUMMARY | 2024-07-23 08:45 | XMS_ITS | Encounter Summary ---
Author Organization [facility] Address [address] [place] [address] Care Team Providers Care Supervisor Paste Mixing Name Role Phone MoundDeep medina Niko LOPEZ Primary Care Provider [phone] Encounter Details Date Type Department Care Team (Late st Contact Info) Description 02/19/2020 Scanned Document [facility] [address] [place], [place] [phone] Arben Fountain, NOLVIA [address] [place] [address] Social History Tobacco Use Types [...] Answer Date Recorded PHQ-2 Score 2 10/02/2019 [facility] [place] of Occupat ional Health - Occupational Stress [...] as of this encounter Care Teams Supervisor Paste Mixing Relationship Specialty Start Date End Date Deep Pruitt APRN PCP - General 05/22/19 documented as of this encounter
--- OUTSIDE RECORDS SUMMARY | 2024-07-23 08:45 | XMS_ITS | Encounter Summary ---
Author Organization [employer] Address [address] [facility] 7t [place] [address] Care Team Providers Care Tunnel Elastic Operator Zigzag Name Role Phone Katrin Santoyo MD Primary Care Pro vider Edison Vieira MD Unavailable Joe Devi MD Unavailable Reason for Visit * Reason Comments Med Refill Encounter Details Date Type Department Care Team ([facility] st Contact Info) Description 07/03/2024 Refill [facility] [address] [place] [address] [phone] Katrin Santoyo MD [address] [place] [address] Social History Tobacco Use Types Packs/Day Years [...] 9:45 AM EDT Office Visit [facility] [address] [place] [address] 08/22/2024 1:15 PM EDT Office Visit [facility] [address] [place] [address] Katrin Santoyo MD [address] [place] [address] documented as of this encounter Goals Goal [...] documented as of this encounter Care Teams Tunnel Elastic Operator Zigzag Relationship Specialty Start Date End Date Katrin Santoyo MD [address] [place] [address] PCP - General Internal Medicine 12/13/22 Edison Vieira MD [address] [place] [address] Pulmonary Disease 04/07/24 Joe Devi MD 11 [facility] 3rd [place] [address] Gastroenterology 04/07/24 Carito Roche DNP 10 [facility], [address] [place] [address] Nephrology 04/07/24 MD.Voice 04/11/24 documented as of this encounter
--- OUTSIDE RECORDS SUMMARY | 2024-07-23 08:45 | XMS_ITS | Encounter Summary ---
Author Organization [facility] Address [address] [place] [address] Care Team Providers Care Marine Scientist Name Role Phone [place] Niko LOPEZ Primary Care Provider Reason for Visit * Reason Onset Date Comments Medication Refill 10/12/2021 Encounter Details Date Type Department Care Team (Late st Contact Info) Description 10/12/2021 Refill [facility] [address] [place] [address] Cecile Oneal, DMD [address] [place] [address] Medication Refill Social History Tobacco [...] as of this encounter Care Teams Marine Scientist Relationship Specialty Start Date End Date Deep Pruitt APRN PCP - General 05/22/19 documented as of this encounter
--- OUTSIDE RECORDS SUMMARY | 2024-07-23 08:45 | XMS_ITS | Encounter Summary ---
Author Organization [facility] Address [address] [place] [address] Care Team Providers Care Fan Mail Editor Name Role Phone Deep Pruitt APRN Primary Care Provider Reason for Visit * Reason Comments Other Encounter Details Date Type Department Care Team ([facility] Contact Info) Description 01/13/2021 Telephone [facility] [address] [place] [address] Deep Pruitt APRN [address] [place] [address] Other Social History Tobacco Use [...] Date Recorded PHQ-2 Total Score 6 01/12/2021 [facility] of Occupat ional [...] a side effect fromthat medication. Patient utilizes [facility] [address] [place] [address] Patient contact [phone] documented in this encounter Plan of Treatment [...] documented as of this encounter Care Teams Fan Mail Editor Relationship Specialty Start Date End Date Deep Pruitt APRN PCP - General 05/22/19 documented as of this encounter
--- OUTSIDE RECORDS SUMMARY | 2024-07-23 08:45 | XMS_ITS | Encounter Summary ---
Author Organization [employer] Address 75 [facility] 7t [place] [address] Care Team Providers Care Estate Planning Attorney Name Role Phone Katrin Santoyo MD Primary Care Pro vider Edison Vieira MD Unavailable [phone] Joe Devi MD Unavailable Reason for Visit * Reason Onset Date Comments Referral 04/05/2023 Encounter Details Date Type Department Care Team (Late st Contact Info) Description 04/05/[address] [facility] [address] [place], [place] [phone] Katrin Santoyo MD [address] [place], [place] [phone] Referral Social History Tobacco Use Types Packs/Day [...] Bhardwaj - 04/06/2023 10:27 AM EST Called [facility] for an update and they stated [...] Gastro made on 04/04/2023 sent to [address] [facility] [place] [facility], states that they called facility and facility informs that their missing a summary form. Please contact pt at [phone] [place] Citizen Speaker documented in this encounter Plan of Treatment Upcoming Encounters Date Type Department Care Team ([facility] st Contact Info) Description 08/13/2024 9:45 AM EDT Office Visit [facility] [address] [place] [address] 08/22/2024 1:15 PM EDT Office Visit [facility] [address] [place] [address] [phone] Katrin Santoyo MD [address] [place] [address] documented as of this encounter Goals Goal [...] documented as of this encounter Care Teams Estate Planning Attorney Relationship Specialty Start Date End Date Katrin Santoyo MD [address] [place] [address] PCP - General Internal Medicine 12/13/22 Edison Vieira MD [address] [place] [address] Pulmonary Disease 04/07/24 Joe Devi MD [address] [place] [address] 3rd [place] [address] Gastroenterology 04/07/24 Carito Roche DNP 10 [facility], [address] [place] [address] Nephrology 04/07/24 [employer] 04/11/24 documented as of this encounter
--- OUTSIDE RECORDS SUMMARY | 2024-07-23 08:45 | XMS_ITS | Encounter Summary ---
Author Organization [facility] Address [address] [place] [address] Care Team Providers Care Media Monitor Name Role Phone Deep Pruitt JOHN Primary Care Provider [phone] Reason for Visit * Reason Onset Date Comments Medication Refill 10/12/2021 Encounter Details Date Type Department Care Team (Late st Contact Info) Description 10/12/2021 Refill [facility] Nutrition at [address] [phone] Angie Mcghee MD [address] [place] [phone] Medication Refill Social History Tobacco Use Types [...] 10/12/2021 [facility] of Occupat ional Health [...] as of this encounter Care Teams Media Monitor Relationship Specialty Start Date End Date Deep Pruitt APRN PCP - General 05/22/19 documented as of this encounter
--- OUTSIDE RECORDS SUMMARY | 2024-07-23 08:45 | XMS_ITS | Encounter Summary ---
Author Organization [facility] Address [address] [place] [address] Care Team Providers Care Geospatial Developer Name Role Phone Deep Pruitt APRN Primary Care Provider [phone] Reason for Visit * Reason Onset Date Comments Medication Refill 10/12/2021 Encounter Details Date Type Department Care Team (Late st Contact Info) Description 10/12/2021 Refill [facility] [address] [facility] 800 [facility] 2nd [place] [address] Taylor Malagon, [facility] [address] [place] [phone] Medication Refill Social History Tobacco Use Types [...] Date Recorded PHQ-2 Total Score 0 10/12/2021 [facility] of Occupat ional [place] - Occupational Stress Questionnaire Answer Date Recorded [...] documented as of this encounter Care Teams Geospatial Developer Relationship Specialty Start Date End Date Deep Pruitt APRN PCP - General 05/22/19 documented as of this encounter
--- OUTSIDE RECORDS SUMMARY | 2024-07-23 08:45 | XMS_ITS | Encounter Summary ---
Author Organization [facility] Address [address] [place] [address] Care Team Providers Care [place] Auditor Name Role Phone Deep Pruitt APRN Primary Care Provider Reason for Visit * Reason Comments Medication Refill Encounter Details Date Type Department Care Team ([facility] st Contact Info) Description 11/05/2020 Refill [facility] [address] [place] [address] Deep Pruitt APRN [address] [place] [address] Medication Refill Social History Tobacco Use [...] 2 07/07/2020 [facility] of Occupat ional [facility] - Occupational Stress Questionnaire Answer Date [...] documented as of this encounter Care Teams [place] Auditor Relationship Specialty Start Date End Date Deep Pruitt APRN PCP - General 05/22/19 documented as of this encounter
--- OUTSIDE RECORDS SUMMARY | 2024-07-23 08:45 | XMS_ITS | Encounter Summary ---
Author Organization [facility] Address [address] [place] [address] Care Team Providers Care Recruiting Consultant Name Role Phone Deep Pruitt APRN Primary Care Provider [phone] Reason for Visit * Reason Comments Medication Refill Encounter Details Date Type Department Care Team ([facility] st Contact Info) Description 12/29/2020 Refill [facility] [address] [place] [address] Deep Pruitt APRN [address] [place] [address] Medication Refill Social History Tobacco Use [...] Date Recorded PHQ-2 Total Score 0 11/18/2020 [facility] of Occupat ional [...] documented as of this encounter Care Teams Recruiting Consultant Relationship Specialty Start Date End Date Deep Pruitt APRN PCP - General 05/22/19 documented as of this encounter
--- OUTSIDE RECORDS SUMMARY | 2024-07-23 08:45 | XMS_ITS | Encounter Summary ---
Author Organization [facility] Address [address] [place] [address] Care Team Providers Care Insurance Commissioner Name Role Phone SonalDeep Niko LOPEZ Primary Care Provider Reason for Visit * Reason Comments Medication Refill Encounter Details Date Type Department Care Team (Late st Contact Info) Description 01/04/2021 Refill [facility] Nutrition at [address] [address] Zena Hines PA [address] [place] [address] Medication Refill Social History Tobacco Use [...] Date Recorded PHQ-2 Total Score 0 11/18/2020 [facility] of Occupat ional Health [...] as of this encounter Care Teams Insurance Commissioner Relationship Specialty Start Date End Date Deep Pruitt APRN PCP - General 05/22/19 documented as of this encounter
--- OUTSIDE RECORDS SUMMARY | 2024-07-23 08:45 | XMS_ITS | Encounter Summary ---
Author Organization [facility] Address [address] [place] [address] Care Team Providers Care Supervisor Purification Name Role Phone Deep Pruitt APRN Primary Care Provider Reason for Visit * Reason Comments Medication Refill Encounter Details Date Type Department Care Team ([facility] st Contact Info) Description 11/24/2020 Telephone [facility] [address] [place] [address] Deep Pruitt APRN [address] [place] [address] Medication Refill Social History Tobacco [...] PHQ-2 Total Score 0 11/18/2020 [facility] of Occupat [...] of certain medication. Call back number is [phone] (andorran speaking) preferred pharmacy is [facility] [address] [address] documented in this encounter Plan [...] as of this encounter Care Teams Supervisor Purification Relationship Specialty Start Date End Date Deep Pruitt APRN PCP - General 05/22/19 documented as of this encounter
--- OUTSIDE RECORDS SUMMARY | 2024-07-23 08:45 | XMS_ITS | Encounter Summary ---
Author Organization [employer] Address [address] [facility] 7t [place] [address] Care Team Providers Care Product Advisor Name Role Phone Katrin Santoyo MD Primary Care Pro vider Edison Vieira MD Unavailable [phone] Joe Devi MD Unavailable [phone] Reason for Visit * Reason Onset Date Comments Med Refill 2024 Encounter Details Date Type Department Care Team ([facility] st Contact Info) Description 2024 Telephone [facility] [address] [place], [place] [phone] Katrin Santoyo MD [address] [place], [place] [phone] Med Refill Social History Tobacco Use Types [...] EST TC placed to pt with S attendant campground [place] #[id number] to inquire as to the medication that the pt needs refills on. The pt was very vague and did not have an exact name of the medication but stated thatit was used topically for foot pain. Pt also stated that it was prescribed by a Green Team provider. RN called [facility] pharmacy who confirmed that the pt most [...] Description 08/13/2024 9:45 AM EDT Office Visit [facility] [address] [place] [address] 08/22/2024 1:15 PM EDT Office Visit [facility] [address] [place] [address] Katrin Santoyo MD [address] [place] [address] documented as of this encounter Goals Goal [...] documented as of this encounter Care Teams Product Advisor Relationship Specialty Start Date End Date Katrin Santoyo MD [address] [place] [address] PCP - General Internal Medicine 12/13/22 Edison Vieira MD [address] [place] [address] Pulmonary Disease 04/07/24 Joe Devi MD [address] [facility] 3rd [place] [address] Gastroenterology 04/07/24 Carito Roche DNP [address] [facility], [address] [place] [address] Nephrology 04/07/24 [employer] 04/11/24 documented as of this encounter
--- OUTSIDE RECORDS SUMMARY | 2024-07-23 08:45 | XMS_ITS | Encounter Summary ---
Author Organization [facility] Address [address] [place] [address] Care Team Providers Care Director Talent Management Name Role Phone Deep Pruitt APRN Primary Care Provider Reason for Visit * Reason Comments Medication Refill Encounter Details Date Type Department Care Team ([facility] st Contact Info) Description 11/11/2020 Refill [facility] [address] [place] [address] Deep Pruitt APRN [address] [place] [phone] Medication Refill Social History Tobacco Use [...] 07/07/2020 [facility] of Occupat ional [facility] - Occupational Stress Questionnaire Answer [...] as of this encounter Care Teams Director Talent Management Relationship Specialty Start Date End Date Deep Pruitt APRN PCP - General 05/22/19 documented as of this encounter
--- OUTSIDE RECORDS SUMMARY | 2024-07-23 08:45 | XMS_ITS | Encounter Summary ---
Author Organization [employer] Address [address] [facility] 7 [place] [address] Care Team Providers Care Toddler Nanny Name Role Phone Katrin Santoyo MD Primary Care Pro vider Edison Vieira MD Unavailable [phone] Joe Devi MD Unavailable [phone] Encounter Details Date Type Department Care Team (Late st Contact Info) Description 06/21/2023 Abstract [facility] [address] [place], [place] [phone] Katrin Santoyo MD [address] [place] [address] Social History Tobacco Use Types Packs/Day Years [...] Description 08/13/2024 9:45 AM EDT Office Visit [facility] [address] [place] [address] 08/22/2024 1:15 PM EDT Office Visit [facility] [address] [place] [address] [phone] Katrin Santoyo MD [address] [place] [address] documented as of this encounter Goals Goal [...] as of this encounter Care Teams Toddler Nanny Relationship Specialty Start Date End Date Katrin Santoyo MD [address] [place] [address] PCP - General Internal Medicine 12/13/22 Edison Vieira MD [address] [place] [address] Pulmonary Disease 04/07/24 Joe Devi MD [address] 3rd Floor [place] [address] Gastroenterology 04/07/24 Carito Roche DNP [address], [address] [place] [address] Nephrology 04/07/24 [email or web address] 04/11/24 documented as of this encounter
--- OUTSIDE RECORDS SUMMARY | 2024-07-23 08:45 | XMS_ITS | Encounter Summary ---
Author Organization [facility] Address [address] [place] [address] Care Team Providers Care Production Truck Driver Name Role Phone Deep Pruitt APRN Primary Care Provider Reason for Visit * Reason Onset Date Comments Medication Refill 09/30/2021 Encounter Details Date Type Department Care Team (Late st Contact Info) Description 09/30/2021 Refill [facility] [address] [facility] [address] [facility] 2nd [place] [address] Rubin Valderrama, [facility] [address] [place] [phone] Medication Refill Social History Tobacco Use Types [...] [facility] of Occupat ional [facility] - Occupational Stress Questionnaire Answer [...] today, but unknown at home. Defer to [facility] pharmacy team for antihypertensive management. [...] as of this encounter Care Teams Production Truck Driver Relationship Specialty Start Date End Date Deep Pruitt APRN PCP - General 05/22/19 documented as of this encounter
--- OUTSIDE RECORDS SUMMARY | 2024-07-23 08:45 | XMS_ITS | Encounter Summary ---
Author Organization [facility] Address [address] [place] [address] Care Team Providers Care Programming Equipment Operator Name Role Phone Deep Pruitt APRN Primary Care Provider Reason for Visit * Reason Comments Medication Problem Encounter Details Date Type Department Care Team ([facility] Contact Info) Description 10/11/2021 Telephone [facility] [address] [place] [address] Deep Pruitt APRN [address] [place] [address] Medication Problem Social History Tobacco [...] Date Recorded PHQ-2 Total Score 0 10/12/2021 [facility] of Occupat ional [...] 08 of October Spoke to sissy via government instructor #[id number] (patti) patient states she spoke to the [...] if patient medication can be [facility] [place] [facility] [address] . Best contact: [phone] documented in this encounter Plan of Treatment Not on file documented as of this encounter Visit Diagnoses Not on filedocumented in this encounter Additional Health Concerns Infection Onset Date Last Indicated Resolved Time COVID-19 09/29/2021 09/29/2021 10/19/2021 7:19 PM EDT Assessment Noted Time PHQ-9 Depression Total Score: 0 10/08/19 22 1:27 PM EDT documented as of this encounter Care Teams Programming Equipment Operator Relationship Specialty Start Date End Date Deep Pruitt APRN PCP - General 05/22/19 documented as of this encounter
--- OUTSIDE RECORDS SUMMARY | 2024-07-23 08:45 | XMS_ITS | Encounter Summary ---
Author Organization [employer] Address [address] [facility] 7 [place] [address] Care Team Providers Care Actuarial Manager Name Role Phone Katrin Santoyo MD Primary Care Pro vider Edison Vieira MD Unavailable [phone] Joe Devi MD Unavailable [phone] Reason for Visit * Reason Comments Med Refill Encounter Details Date Type Department Care Team (Late st Contact Info) Description 2024 Refill [facility] [address] [place], [place] [phone] Katrin Santoyo MD [address] [place] [address] Social History Tobacco Use Types Packs/Day Years [...] Description 08/13/2024 9:45 AM EDT Office Visit [facility] [address] [place] [address] 08/22/2024 1:15 PM EDT Office Visit [facility] [address] [place] [address] Katrin Santoyo MD [address] [place] [address] documented as of this encounter Goals Goal [...] documented as of this encounter Care Teams Actuarial Manager Relationship Specialty Start Date End Date Katrin Santoyo MD [address] [place] [address] PCP - General Internal Medicine 12/13/22 Edison Vieira MD [address] [place] [address] Pulmonary Disease 04/07/24 Joe Devi MD [address] 3rd [place] [address] Gastroenterology 04/07/24 Carito Roche DNP [address] [place] [address] Nephrology 04/07/24 [employer] 04/11/24 documented as of this encounter
--- OUTSIDE RECORDS SUMMARY | 2024-07-23 08:45 | XMS_ITS | Encounter Summary ---
Author Organization [facility] Address [address] [place] [address] Care Team Providers Care Executive Assistant To General Counsel Name Role Phone Deep Pruitt APRN Primary Care Provider Reason for Visit * Reason Comments Other Advice Only Encounter Details Date Type Department Care Team ([facility] Contact Info) Description 09/28/2021 Telephone [facility] [address] [place] [address] Deep Pruitt APRN [address] [place] [address] Other; Advice Only Social History [...] Date Recorded PHQ-2 Total Score 5 09/14/2021 [facility] of Occupat ional [...] be given because his underlying condition. Patient [phone] documented in this encounter Plan of Treatment Not on file documented as of this encounter Visit Diagnoses Not on filedocumented in this encounter Additional Health Concerns Infection Onset Date Last Indicated Resolved Time COVID-19 09/29/2021 09/29/2021 10/19/2021 7:19 PM EDT Assessment Noted Time PHQ-9 Depression Total Score: 7 09/15/19 22 10:31 AM EDT documented as of this encounter Care Teams Executive Assistant To General Counsel Relationship Specialty Start Date End Date Deep Pruitt APRN PCP - General 05/22/19 documented as of this encounter
--- OUTSIDE RECORDS SUMMARY | 2024-07-23 08:45 | XMS_ITS | Encounter Summary ---
Author Organization [employer] Address [address] [facility] 7t [place] [address] Care Team Providers Care Fixed Income Manager Name Role Phone Katrin Santoyo MD Primary Care Pro vider Edison Vieira MD Unavailable [phone] Joe Devi MD Unavailable [phone] Reason for Visit * Reason Comments Med Refill Encounter Details Date Type Department Care Team ([facility] st Contact Info) Description 06/25/2024 Refill [facility] [address] [place] [address] [phone] Katrin Santoyo MD [address] [place] [address] Social History Tobacco Use Types Packs/Day Years [...] Description 08/13/2024 9:45 AM EDT Office Visit [facility] [address] [place] [phone] 08/22/2024 1:15 PM EDT Office Visit [facility] [address] [place] [phone] Katrin Santoyo MD [address] [place] [address] documented as of this encounter Goals Goal [...] documented as of this encounter Care Teams Fixed Income Manager Relationship Specialty Start Date End Date Katrin Santoyo MD [address] [place] [address] PCP - General Internal Medicine 12/13/22 Edison Vieira MD [address] [place] [address] Pulmonary Disease 04/07/24 Joe Devi MD [address] [facility] 3rd [place] [address] Gastroenterology 04/07/24 Carito Roche DNP [address] [facility], [address] [place] [address] Nephrology 04/07/24 Meeps 04/11/24 documented as of this encounter
--- OUTSIDE RECORDS SUMMARY | 2024-07-23 08:45 | XMS_ITS | Encounter Summary ---
Author Organization [employer] Address [address] 7t [place] [address] Care Team Providers Care Lead Worker Of Housekeeping And Laundry Name Role Phone Katrin Santoyo MD Primary Care Pro vider Edison Vieira MD Unavailable [phone] Joe Devi MD Unavailable [phone] Encounter Details Date Type Department Care Team (Late st Contact Info) Description 2024 11:20 AM EST Office Visit [facility] [address] [place] [address] Dhara Cardenas MD [address] [place] [address] Acute bronchitis, unspecified organism (Primary Dx); Influenza [...] 2024 11:20 AM EST Pt presents to [facility] complaining of cough with phlegm, body [...] Description 08/13/2024 9:45 AM EDT Office Visit [facility] [address] [place] [address] 08/22/2024 1:15 PM EDT Office Visit [facility] [address] [place] [address] Katrin Santoyo MD [address] [place] [address] documented as of this encounter Goals Goal [...] EST) Influenza A Positive( A) Negative, Indeterminate [facility] Swab 2024 11:0 9 AM EST us Dhara Cardenas MD POINT OF CARE TEST ENTER/EDIT OR DERABLES Final Result [facility] [address] [place] [address] [phone] * POCT Rapid COVID Ag (2024 11:08 AM EST) Rapid COVID Ag Negative Swab 2024 11:0 8 AM EST Dhara Cardenas MD POINT OF CARE TEST ENTER/EDIT OR DERABLES Final Result * Influenza B (ID NOW Rapid Molecular) (2024 11:08 AM EST) Influenza B Negative Negative, Indeterminate [facility] Swab 2024 11:0 8 AM EST Dhara Cardenas MD POINT OF CARE TEST ENTER/EDIT OR DERABLES Final Result [facility] [address] [place] [phone] documented in this encounter Visit Diagnoses [...] as of this encounter Care Teams Lead Worker Of Housekeeping And Laundry Relationship Specialty Start Date End Date Katrin Santoyo MD [address] [place] [phone] PCP - General Internal Medicine 12/13/22 Eidson Vieira MD [address] [place] [address] Pulmonary Disease 04/07/24 Joe Devi MD [address] 3rd [place] [address] Gastroenterology 04/07/24 Carito Roche DNP [address], [address] [place] [address] Nephrology 04/07/24 DVTel 04/11/24 documented as of this encounter
--- OUTSIDE RECORDS SUMMARY | 2024-07-23 08:46 | XMS_ITS | Encounter Summary ---
Author Organization [facility] Address [address] [place] [phone] Care Team Providers Care Outpatient Therapist Name Role Phone Deep Pruitt APRN Primary Care Provider Encounter Details Date Type Department Care Team (Latest Contact Info) Description 09/09/2021 Transcribed Orders [facility] [employer] [address] [place] [address] Deep Pruitt APRN [address] [place] [address] Encounter for routine screening for [...] Date Recorded PHQ-2 Total Score 2 09/08/2021 [facility] - Occupational Stress Questionnaire Answer Date [...] Orde r Schedule TSH w/reflex to FT4 ([facility] LMW Q YH) Lab Routine Encounter [...] health care facility TSH W/REFLEX TO FT4 ([facility] LMW Q YH) Routine 09/09/2021 12:05 [...] prostate Routine general medical examination at a [facility] ALBUMIN/CREATININE PANEL, URINE, RANDOM Routine 09/09/2021 11:01 AM EDT Encounter for routine screening for malformation using ultrasonics Special screening for malignant neoplasm of prostate Routine general medical examination at a [facility] CBC WITH AUTO DIFFERENTIAL Routine 09/09/2021 10:58 AM EDT Encounter for routine screening for malformation using ultrasonics Special screening for malignant neoplasm of prostate Routine general medical examination at a [facility] CBC AND DIFFERENTIAL Routine 09/09/2021 10:58 AM EDT Encounter for routine screening for malformation using ultrasonics Special screening for malignant neoplasm of prostate Routine general medical examination at a [facility] HEMOGLOBIN A1C Routine 09/09/2021 10:58 AM EDT Encounter for routine screening for malformation using ultrasonics Special screening for malignant neoplasm of prostate Routine general medical examination at a health care facility documented in this encounter Results * PSA, total and free (09/09/2021 12:05 PM EDT) Prostate Specific Antigen, Total (YH) 0.578 0.000 - 3.900 ng/mL 09/13/2021 1:44 PM EDT [facility] Prostate Specific Antigen, Free (YH) 0.28 0.00 - 3.90 ng/mL 09/13/2021 1:44 PM EDT [facility] Comment:Prostate Specific An tigen, Free Percentage can not be calculated. PSA, Total value out of appropriate range. Blood Venipuncture / Unknown 09/09/2021 12:05 PM EDT 09/13/2021 10:48 AM EDT Narrative [facility] - 09/13/2021 1:44 [...] the 2-4 ng/mL range. Deep Pruitt [facility] LAB BLOOD ORDERABLES Final Result Performing Organization Address City/State/[facility] Co de Phone Number [facility] [address] [place] [address] * (ABNORMAL) Comprehensive metabolic panel (09/09/2021 12:05 PM EDT) Sodium 140 136 - 144 mmol/L 09/09/2021 2:42 PM EDT [facility] Potassium 4.9 3.3 - 5.3 mmol/L 09/09/2021 2:42 PM EDT [facility] Chloride 101 98 - 107 mmol/L 09/09/2021 2:42 PM EDT [facility] CO2 27 20 - 30 mmol/L 09/09/2021 2:42 PM EDT [facility] Anion Gap 12 7 - 17 09/09/2021 2:42 PM EDT [facility] Glucose 148(H) 70 - 100 mg/dL 09/09/2021 2:42 PM EDT [facility] BUN 31(H) 6 - 20 mg/dL 09/09/2021 2:42 PM EDT [facility] Creatinine 1.40(H) 0.40 - 1.30 mg/dL 09/09/2021 2:42 PM EDT [facility] Calcium 9.5 8.8 - 10.2 mg/dL 09/09/2021 2:42 PM T [facility] BUN/Creatinine Ratio 22.1 8.0 - 23.0 0509/2021 2:42 PM EDT [facility] Total Protein 6.4(L) 6.6 - 8.7 g/dL 09/09/2021 2:42 PM EDT [facility] Albumin 3.6 3.6 - 4.9 g/dL 09/09/2021 2:42 PM T [facility] Total Bilirubin 0.2 <=1.2 mg/dL 09/09/2021 2:42 PM T [facility] Alkaline Phosphatase 135(H) 9 - 122 U/L 09/09/2021 2:42 PM T [facility] Alanine Aminotransferase (ALT) 40 9 - 59 U/L 09/09/2021 2:42 PM T [facility] Comment:Calcium dobesilate c an cause artificially low ALT results at therapeutic concentrations Aspartate Aminotransferase (AST) 33 10 - 35 U/L 09/09/2021 2:42 PM T [facility] Globulin 2.8 2.3 - 3.5 g/dL 09/09/2021 2:42 PM T [facility] A/G Ratio 1.3 1.0 - 2.2 09/09/2021 2:42 PM T [facility] AST/ALT Ratio 0.8 See Comment 09/09/2021 2:42 PM T [facility] Comment: Adult with mild elevations of transaminases (< 5 times upper limit of normal): AST/ALT > 2 suggests alcoholic liver injury AST/ALT < 1 suggests non-alcoholic fatty liver disease (NAFLD) [place] (healthy): AST/ALT can be > 3 on day 0 AST/ALT < 2 by day 5 The thresholds provided focus on the most common etiologies of elevated serum transaminase levels and the associated alteration of AST:ALT ratios; they are not intended to exclude other feasible and clinically appropriate possibilities eGFR (Afr Amer) >60 >60 mL/min/1.7 3m2 09/09/2021 2:42 PM EDT [facility] Comment: Values under 60mL/min/1.73m2 may indicate CKD if noted for ?? more than 3 months. eGFR is only valid if creatinine is at steady state. eGFR (NON -Macanese) 53 >60 mL/min/1.7 3m2 09/09/2021 2:42 PM EDT [facility] Comment: Values under 60mL/min/1.73m2 may indicate CKD if noted for ?? more than 3 months. eGFR is only valid if creatinine is at steady state. Blood Venipuncture / Unknown 09/09/2021 12:05 PM EDT 09/09/2021 12:05 PM EDT Deep Pruitt WEIGHT AND TEST BAR CLERK LAB BLOOD ORDERABLES Final Result Performing Organization Address City/[facility]/ZIP Co de Phone Number [facility] [address] [place] [address] * TSH w/reflex to FT4 ( [facility] LMW Q YH) (09/09/2021 12:05 PM EDT) Thyroid Stimulating Hormone 3.640 See Comment ??IU/mL 09/09/2021 2:42 PM EDT [facility] Comment: Male & Non- Females: 0.270-4.200 ??IU/mL 1st Trimester: 0.110-3.480 ??IU/mL 2nd Trimester: 0.320-3.850 ??IU/mL Blood Venipuncture / Unknown 09/09/2021 12:05 PM EDT 09/09/2021 12:05 PM EDT Deep Pruitt WEIGHT AND TEST BAR CLERK LAB BLOOD ORDERABLES Final Result Performing Organization Address City/[facility]/ZIP Co de Phone Number [facility] [address] [place] [address] * LDL cholesterol, direct (09/09/2021 12:05 PM EDT) LDL Direct 63 See Comment mg/dL 09/09/2021 2:41 PM EDT [facility] Comment: LDL Cholesterol (mg/dL) ?Adults (>=18 years) ?Children (<18 years) Desirable ?<100 ? <110 Above Desirable ?100-129 ?Not Established Borderline-High ?130-159 ?110- 129 High ? 160-189 ?>=130 Very High? >=190 ?Not Established Blood Venipuncture / Unknown 09/09/2021 12:05 PM EDT 09/09/2021 12:05 PM EDT us Deep Pruitt APRN LAB BLOOD ORDERABLES Final Result Performing Organization Address [facility]/ZIP Co de Phone Number [facility] [address] [place] [phone] [place] [address] * (ABNORMAL) Albumin/creatinine panel, urine, random (09/09/2021 11:01 AM EDT) Albumin, Urine, Random 1,616.3 Reference Range Not Established mg/L 09/09/2021 2:52 PM EDT [facility] Creatinine, Urine, Random 35 Reference Range Not Established mg/dL 09/09/2021 2:52 PM EDT [facility] Albumin/Creatin ine Ratio, Urine, Random 4,684.9(H ) <30.0 mg/g Cr 09/09/2021 2:52 PM EDT [facility] Comment: High albuminuria (formerly microalbuminuria): ??30-300 mg/g Cr Very high albuminuria (overt albuminuria): ? >300 mg/g Cr Urine Collection / Unknown 09/09/2021 11:01 AM EDT 09/09/2021 11:01 AM EDT Deep Pruitt APRN URINE ORDERABLES Final Resu lt Performing Organization Address [facility] Co de Phone Number [address] [address] [phone] * (ABNORMAL) CBC auto differential (09/09/2021 10:58 AM EDT) WBC 13.5(H) 4.0 - 11.0 x1000/??L 09/09/2021 2:16 PM EDT [facility] RBC 5.05 4.00 - 6.00 M/??L 09/09/2021 2:16 PM EDT [facility] Hemoglobin 13.9 13.2 - 17.1 g/dL 09/09/2021 2:16 PM EDT [facility] Hematocrit 46.10 38.50 - 50.00 % 09/09/2021 2:16 PM EDT [facility] MCV 91.3 80.0 - 100.0 fL 09/09/2021 2:16 PM EDT [facility] MCH 27.5 27.0 - 33.0 pg 09/09/2021 2:16 PM EDT [facility] MCHC 30.2(L) 31.0 - 36.0 g/dL 09/09/2021 2:16 PM EDT [facility] RDW-CV 15.1(H) 11.0 - 15.0 % 09/09/2021 2:16 PM EDT [facility] Platelets 298 150 - 420 x1000/??L 09/09/2021 2:16 PM EDT [facility] MPV 13.0(H) 8.0 - 12.0 fL 09/09/2021 2:16 PM EDT [facility] Neutrophils 63.6 39.0 - 72.0 % 09/09/2021 2:16 PM EDT [facility] Lymphocytes 22.5 17.0 - 50.0 % 09/09/2021 2:16 PM EDT [facility] Monocytes 9.2 4.0 - 12.0 % 09/09/2021 2:16 PM EDT [facility] Eosinophils 3.6 0.0 - 5.0 % 09/09/2021 2:16 PM EDT [facility] Basophil 0.4 0.0 - 1.4 % 09/09/2021 2:16 PM EDT [facility] Immature Granulocytes 0.7 0.0 - 1.0 % 09/09/2021 2:16 PM EDT [facility] nRBC 0.0 0.0 - 1.0 % 09/09/2021 2:16 PM EDT [facility] ANC(Abs Neutrophil Count) 8.60(H) 2.00 - 7.60 x 1000/??L 09/09/2021 2:16 PM EDT [facility] Absolute Lymphocyte Count 3.05 0.60 - 3.70 x 1000/??L 09/09/2021 2:16 PM EDT [facility] Monocyte Absolute Count 1.24(H) 0.00 - 1.00 x 1000/??L 09/09/2021 2:16 PM EDT [facility] Eosinophil Absolute Count 0.49 0.00 - 1.00 x 1000/??L 09/09/2021 2:16 PM EDT [facility] Basophil Absolute Count 0.06 0.00 - 1.00 x 1000/??L 09/09/2021 2:16 PM EDT [facility] Absolute Immature Granulocyte Count 0.10 0.00 - 0.30 x 1000/??L 09/09/2021 2:16 PM EDT [facility] Absolute nRBC 0.00 0.00 - 1.00 x 1000/??L 09/09/2021 2:16 PM EDT [facility] Blood Venipuncture / Unknown 09/09/2021 10:58 AM EDT 09/09/2021 10:58 AM EDT Deep Pruitt APRN LAB BLOOD ORDERABLES Final Result [facility] [address] [place] [address] * (ABNORMAL) Hemoglobin A1c (09/09/2021 10:58 AM EDT) Hemoglobin A1c 11.5(H) 4.0 - 5.6 % 09/10/2021 6:36 PM EDT [facility] Comment: Hemoglobin A1c [...] mg/dL 09/10/2021 6:36 PM EDT [facility] Comment: Estimated average glucose (eAG) is a calculated value designed to estimate ??the expected average blood glucose level throughout the day from a single ??measurement of ??glycated hemoglobin A1C (HbA1c) and follows the calculation proposed by the [place] [employer] (Diabetes Care 31: 1-6, 2008). It may have less accuracy in children, women and patients with certain erythrocyte disorders. Blood Venipuncture / Unknown 09/09/2021 10:58 AM EDT 09/09/2021 10:58 AM EDT Deep Pruitt APRN LAB BLOOD ORDERABLES Final Result [facility] [address] [place] [address] documented in this encounter Visit Diagnoses Diagnosis [...] documented as of this encounter Care Teams Outpatient Therapist Relationship Specialty Start Date End Date Deep Pruitt APRN PCP - General 05/22/19 documented as of this encounter
--- OUTSIDE RECORDS SUMMARY | 2024-07-23 08:47 | XMS_ITS | Encounter Summary ---
Author Organization [facility] Address [address] [place] [phone] Care Team Providers Care Prescription Clerk Lenses Name Role Phone Deep Pruitt APRN Primary Care Provider Encounter Details Date Type Department Care Team (Late st Contact Info) Description 08/05/2021 Orders Only [facility] [address] [place] [address] Carolyn Marin MD [address] [place] [phone] Essential hypertension Social History Tobacco Use [...] Date Recorded PHQ-2 Total Score 4 07/13/2021 [facility] [...] documented as of this encounter Care Teams Prescription Clerk Lenses Relationship Specialty Start Date End Date Deep Pruitt APRN PCP - General 05/22/19 documented as of this encounter
--- OUTSIDE RECORDS SUMMARY | 2024-07-23 08:47 | XMS_ITS | Encounter Summary ---
Author Organization [facility] Address [address] [place] [address] Care Team Providers Care Network Operations Manager Name Role Phone Deep Pruitt APRN Primary Care Provider Reason for Visit * Reason Comments Medication Refill Encounter Details Date Type Department Care Team ([facility] st Contact Info) Description 09/16/2021 Refill [facility] [address] [place] [address] Deep Pruitt APRN [address] [place] [phone] Medication Refill Social History Tobacco Use [...] Date Recorded PHQ-2 Total Score 5 09/14/2021 [facility] [...] as of this encounter Care Teams Network Operations Manager Relationship Specialty Start Date End Date Deep Pruitt APRN PCP - General 05/22/19 documented as of this encounter
--- OUTSIDE RECORDS SUMMARY | 2024-07-23 08:47 | XMS_ITS | Encounter Summary ---
Author Organization [facility] Address [address] [place] [address] Care Team Providers Care Deep Tissue Massage Therapist Name Role Phone Deep Pruitt APRN Primary Care Provider Reason for Visit * Reason Comments Medication Refill Encounter Details Date Type Department Care Team ([facility] st Contact Info) Description 09/17/[address] [facility] [address] [place] [address] Deep Pruitt APRN [address] [place] [phone] Medication Refill Social History Tobacco Use [...] Date Recorded PHQ-2 Score 2 07/07/2020 [facility] - Occupational Stress Questionnaire Answer Date Recorded [...] documented as of this encounter Care Teams Deep Tissue Massage Therapist Relationship Specialty Start Date End Date Deep Pruitt APRN PCP - General 05/22/19 documented as of this encounter
--- OUTSIDE RECORDS SUMMARY | 2024-07-23 08:47 | XMS_ITS | Encounter Summary ---
Author Organization [facility] Address [address] [place] [phone] Care Team Providers Care Beef Killer Name Role Phone Romelia Pruittian Niko LOPEZ Primary Care Provider Encounter Details Date Type Department Care Team (Latest Contact Info) Description 08/10/2021 Transcribed Orders [facility] [address] [place] [address] Taylor Malagon, C [employer] DEVELOPER [address] [place] [address] Stage 3a chronic kidney disease [...] Date Recorded PHQ-2 Total Score 4 07/13/2021 [facility] ional [...] - 4.5 mg/dL 08/10/2021 10:26 AM EDT [facility] Blood Venipuncture / Unknown 08/10/2021 9:40 AM EDT 08/10/2021 9:56 AM EDT Taylor Malagon APRN LAB BLOOD ORDERABLES Fauzia guzman Result [facility] [address] [place] [address] documented in this encounter Visit Diagnoses Diagnosis Stage 3a chronic kidney disease (CKD) (HC Code)- Primary documented in this encounter Additional Health Concerns Infection Onset Date Last Indicated Resolved Time COVID-19 09/29/2021 09/29/2021 10/19/2021 7:19 PM EDT Assessment Noted Time PHQ-9 Depression Total Score: 11 022 2:28 PM EST documented as of this encounter Care Teams Beef Killer Relationship Specialty Start Date End Date Deep Pruitt APRN PCP - General 05/22/19 documented as of this encounter
--- OUTSIDE RECORDS SUMMARY | 2024-07-23 08:47 | XMS_ITS | Encounter Summary ---
Author Organization [facility] Address [address] [place] [address] Care Team Providers Care Costume Cutter Name Role Phone Deep Pruitt APRN Primary Care Provider Encounter Details Date Type Department Care Team ([facility] st Contact Info) Description 10/26/2020 Scanned Document [facility] [address] [place], [place] [phone] Deep Pruitt APRN [address] [place] [address] Social History Tobacco Use Types [...] Answer Date Recorded PHQ-2 Score 2 07/07/2020 [facility] of Occupat ional [...] documented as of this encounter Care Teams Costume Cutter Relationship Specialty Start Date End Date Deep Pruitt APRN PCP - General 05/22/19 documented as of this encounter
--- OUTSIDE RECORDS SUMMARY | 2024-07-23 08:47 | XMS_ITS | Encounter Summary ---
Author Organization [facility] Address [address] [place] [address] Care Team Providers Care Nuclear Process Engineer Name Role Phone Romelia Pruittian Niko LOPEZ Primary Care Provider Encounter Details Date Type Department Care Team (Late st Contact Info) Description 08/09/2021 Scanned Document [facility] [address] [place] [address] External, Provider Social History Tobacco Use Types [...] Date Recorded PHQ-2 Total Score 4 07/13/2021 [facility] - Occupational [...] as of this encounter Care Teams Nuclear Process Engineer Relationship Specialty Start Date End Date Deep Pruitt APRN PCP - General 05/22/19 documented as of this encounter
--- OUTSIDE RECORDS SUMMARY | 2024-07-23 08:47 | XMS_ITS | Encounter Summary ---
Author Organization [facility] Address [address] [place] [address] Care Team Providers Care Char Filter Operator Helper Name Role Phone Deep Pruitt APRN Primary Care Provider Encounter Details Date Type Department Care Team ([facility] st Contact Info) Description 06/21/2022 Scanned Document [facility] [address] [place], [place] [phone] Deep Pruitt APRN [address] [place] [address] Social History Tobacco Use Types [...] you attend chur ch or anabaptism services? More than 4 times per year [...] Date Recorded PHQ-2 Total Score 2 [facility] Questionnaire Answer Date [...] your living situation today? I have a [facility] place to live 05/19/2022 Sex and [...] documented as of this encounter Care Teams Char Filter Operator Helper Relationship Specialty Start Date End Date Deep Pruitt APRN PCP - General 05/22/19 documented as of this encounter
--- OUTSIDE RECORDS SUMMARY | 2024-07-23 08:47 | XMS_ITS | Encounter Summary ---
Author Organization [facility] Address [address] [place] [address] Care Team Providers Care Fiscal Services Manager Name Role Phone Romelia Pruittian Niko LOPEZ Primary Care Provider [phone] Encounter Details Date Type Department Care Team (Late st Contact Info) Description 09/06/2021 Scanned Document [facility] [address] [place] [address] External, Provider Social History Tobacco Use Types [...] Date Recorded PHQ-2 Total Score 2 09/08/2021 [facility] [...] documented as of this encounter Care Teams Fiscal Services Manager Relationship Specialty Start Date End Date Deep Pruitt APRN PCP - General 05/22/19 documented as of this encounter
--- OUTSIDE RECORDS SUMMARY | 2024-07-23 08:47 | XMS_ITS | Encounter Summary ---
Author Organization [facility] Address [address] [place] [address] Care Team Providers Care Back Digger Operator Name Role Phone Romelia Pruittian Niko LOPEZ Primary Care Provider Encounter Details Date Type Department Care Team (Late st Contact Info) Description 09/08/2021 Scanned Document [facility] [address] [place] [address] External, Provider Social History Tobacco Use Types [...] Date Recorded PHQ-2 Total Score 2 09/08/2021 [facility] Occupat [...] documented as of this encounter Care Teams Back Digger Operator Relationship Specialty Start Date End Date Deep Pruitt APRN PCP - General 05/22/19 documented as of this encounter
--- OUTSIDE RECORDS SUMMARY | 2024-07-23 08:47 | XMS_ITS | Encounter Summary ---
Author Organization [facility] Address [address] [place] [address] Care Team Providers Care Rate And Cost Analyst Name Role Phone Romelia Pruittian Niko LOPEZ Primary Care Provider [phone] Reason for Visit * Reason Comments Medication Refill Encounter Details Date Type Department Care Team ([facility] st Contact Info) Description 09/16/2021 Refill [facility] [address] [place] [phone] Carlos Eduardo Joyner MD [address] [place] [phone] Medication Refill Social History Tobacco Use [...] Date Recorded PHQ-2 Total Score 5 09/14/2021 [facility] of Occupat [...] documented as of this encounter Care Teams Rate And Cost Analyst Relationship Specialty Start Date End Date Deep Pruitt APRN PCP - General 05/22/19 documented as of this encounter
--- OUTSIDE RECORDS SUMMARY | 2024-07-23 08:47 | XMS_ITS | Encounter Summary ---
Author Organization [facility] Address [address] [place] [address] Care Team Providers Care Assistant Analyst Name Role Phone Deep Pruitt APRN Primary Care Provider Reason for Visit * Reason Comments Medication Refill Encounter Details Date Type Department Care Team ([facility] st Contact Info) Description 10/20/2020 Refill [facility] [address], [place] [phone] Deep Pruitt APRN [address] [place] [address] Medication Refill Social History [...] documented as of this encounter Care Teams Assistant Analyst Relationship Specialty Start Date End Date Deep Pruitt APRN PCP - General 05/22/19 documented as of this encounter
--- OUTSIDE RECORDS SUMMARY | 2024-07-23 08:47 | XMS_ITS | Clinical Summary ---
Author Organization [address] Address [address] [place] [id number] Care Team Providers Care Injection Press Operator Name Role Phone Deep Pruitt APRN Primary Care Provider [phone] Allergies Active Allergy Reactions Criticality Noted Date [...] edema will order Compression sleeves today from [facility] today, Put on lower legs during [...] of insulin, Duration 99, Feeding difficulty R63.30 09800 mL 06/23/19 Active metFORMIN (GLUCOPHAGE) 1000 mg [...] AM with Arben Fountain DPM at the [facility] -Will f/u with Pt [...] appointment and was informed he can call [phone] to find a closer time Assessment & Plan (02/19/2022 1:59 PM EDT): -The Pt went to his Cable Television Access Coordinator and was c/o right kidney pain for [...] worse at night - pathway utilized through [employer], patient eligible for molnupiravir, may benefit from [...] Ref. Range 04/07/2020 SPEP Interpretation Unknown ?? Bmrvh-7-Ferwvnut Latest Ref Range: 0.2 - 0.3 g/dL 0.3 Buhuf-6-Jkjtuzkk Latest Ref Range: 0.5 - 0.9 g/dL 1.1 (H) Interpretation Unknown Comment Only Abnormal Protein Band 2 Latest Ref Range: NONE DETECTED g/dL CANCELED Abnormal Protein Band 3 Latest Ref Range: NONE DETECTED g/dL CANCELED Serv-0-Rvjpjmtn Latest Ref Range: 0.4 - 0.6 g/dL 0.5 Rnzy-8-Bmqmacqk Latest Ref Range: 0.2 - 0.5 g/dL [...] 04/08/2020 17:50 ?? Ref. Range 04/07/2020 Free [place] Latest Ref Range: 3.3 - 19.4 mg/L 35.9 (H) Free Lambda Latest Ref Range: 5.7 - 26.3 mg/L 26.6 (H) Free [place]/Lambda Ratio Latest Ref Range: 0.26 - 1.65 [...] 15:12 Ref. Range 04/07/2020 SPEP Interpretation Unknown Tixmp-6-Frqplbem Latest Ref Range: 0.2 - 0.3 g/dL 0.3 Lxmhl-2-Googunnm Latest Ref Range: 0.5 - 0.9 g/dL 1.1 (H) Interpretation Unknown Comment Only Abnormal Protein Band 2 Latest Ref Range: NONE DETECTED g/dL CANCELED Abnormal Protein Band 3 Latest Ref Range: NONE DETECTED g/dL CANCELED Zmgs-0-Znhcjikt Latest Ref Range: 0.4 - 0.6 g/dL 0.5 Ipbp-4-Rczjexqx Latest Ref Range: 0.2 - 0.5 g/dL [...] 04/08/2020 17:50 ?? Ref. Range 04/07/2020 Free [place] Latest Ref Range: 3.3 - 19.4 mg/L 35.9 (H) Free Lambda Latest Ref Range: 5.7 - 26.3 mg/L 26.6 (H) Free [place]/Lambda Ratio Latest Ref Range: 0.26 - 1.65 [...] of 04/08/2020 17:50 Ref. Range 04/07/2020 Free [place] Latest Ref Range: 3.3 - 19.4 mg/L 35.9 (H) Free Lambda Latest Ref Range: 5.7 - 26.3 mg/L 26.6 (H) Free [place]/Lambda Ratio Latest Ref Range: 0.26 - 1.65 [...] like to speak with his pcp first [phone] Phone Conversation with Pt over the phone: PCP called cuban speaking (uncontrolled diabetic) Pt over the phone, [...] Tried to call the Pt using the Solomon Islander Interpretor [id number], V/M was not set up [...] have CC'd Ricarda Du MD, his primary bridge painter helper. She has a phone consult with him [...] all the Pt medication bottle be in cuban, Pt had a medication (allopurinoL (ZYLOPRIM) 100 [...] appointment to see me at the front elevator operator ?? Latest Reference Range & Units 09/09/21 12/15/21 BUN 7 - 25 mg/dL 31 (H) 29 (H) Creatinine 0.70 - 1.30 mg/dL 1.40 (H) 1.55 (H) BUN/Creatinine Ratio 6 - 22 (calc) 22.1 19 eGFR (NON -Macedonian) >60 mL/min/1.73m2 53 eGFR (Afr Amer) >60 [...] Range: 8.0 - 23.0 22.1 eGFR (NON -Macedonian) Latest Ref Range: >60 mL/min/1.73m2 53 eGFR [...] Taylor Malagon APRN at the Nephrology at [address] [place] [address], The Renal department is working on getting the Pt a 24 hour HTN monitor to assess the effectiveness of his recent medication changes, used cuban interpretor 9250 ?? 07/13/2021 Renal Referral Note:?? Assessment and [...] effectiveness of his recent medication changes, used cuban interpretor 9217 07/13/2021 Renal Referral Note: Assessment [...] given a referral to talk with the [facility] Disability Aide for further assessment of his current diet [...] and magnesium supplements that he said a clerical production worker told him were good for his kidneys. [...] preparation for his first visit with a bridge painter helper, Ricarda Du MD on 04/07/2020. Assessment & Plan (02/12/2020 2:18 PM EDT): Pt was recently in the hospital for Kidney issues, the Pt missed a previous Kidney appointment and will ask Pt to reschedule another Kidney appointment Date & Time 02/25/2020 10:00 AM Provider Taylor Malagon APRN Department [facility] at [address] [facility] Nephrology [address] [facility] 2nd Floor [facility] [id number] Comment: Pt needs a Kidney referral due [...] 23 (H) 23 (H) 14.7 eGFR (NON -Macedonian) Latest Ref Range: >60 mL/min/1.73m2 76 77 [...] (see MRI of Brain from 2017 under [facility] Multimedia -Significant deficits on neurologic exam Memory loss and Left handed weakness -Imaging and prior evaluation -Current blood thinning agents is aspirin -Potential details to include, when relevant: poor GAIT, uses a walker to get around -How the diagnosis was made: Pt lived in [facility] at the time, [facility] specific file at specific date [id number].TIF Image MRI Result [facility] - MRI BRAIN CVA -09/25/2016 [id number].TIF Image Evaluation [facility]- Left handed weakness note - 02/20/2017 [...] a letter to be given to the [employer] advising stating that the Pt is disabled and needs help with housing Is there a form to be fill out from the [employer] [employer] advising that the Pt is disabled and needs help with housing t 03/26/21 Oksana Fox to Deep Pruitt NP Summary: Letters needed by patient This radio news writer met with patient at the clinic today 03.26.21 per nurses request, to assistance with letters that the patient is requesting. This radio news writer spoke to patient and patient is [...] Patient is also requesting a letter for [employer] advising that he is disabled. [...] (see MRI of Brain from 2017 under [facility] Multimedia Significant deficits on neurologic exam Memory loss and Left handed weakness Imaging and prior evaluation Current blood thinning agents is aspirin Potential details to include, when relevant: poor GAIT, uses a walker to get around How the diagnosis was made: Pt lived in [facility] at the time, [facility] specific file at specific date [id number].TIF Image MRI Result [facility] - MRI BRAIN CVA -09/25/2016 [id number].TIF Image Evaluation [facility]- Left handed weakness note - 02/20/2017 [...] is working with his Diabetic Specialist at [facility] and has an appointment next week, will increase his Gababentin to 800 mg PO TID which has helped with his neuropathic pain, Spent 25 mins with Pt using the Shear Grinder Operator Microalbuminuric diabetic nephropathy (HC Code) (HC CODE) [...] Ricarda Du MD at the Nephrology at [address] [place] [address] Results for DARREL BHARDWAJ ( ) as [...] ) as of 09/19/2019 07:04 eGFR (NON -Macedonian) Latest Ref Range: > OR = 60 [...] for Bariatric surgery and Pt needs a financial health counselor Assessment & Plan (09/10/2021 5:42 PM EDT): Pt has a BMI of 40.4 and is working with the wellness clinic to work on his weight loss plan, putting a referral in for Bariatric surgery and Pt needs a financial health counselor Assessment & Plan (09/26/2019 9:45 AM EDT): Pt has a BMI of 40.4 and is working with the wellness clinic to work on his weight loss plan, putting a referral in for Bariatric surgery and Pt needs a financial health counselor Assessment & Plan (09/09/2019 2:47 PM EDT): [...] whole encounter. The interview was conducted in Solomon Islander which is my [place] language. I have encouraged Mr. Bhardwaj to contact us with any questions, concerns or clinical changes. Plan: 1. Continue current therapy. 2. No need for supplemental oxygen. Assessment & Plan (12/23/2021 12:10 PM EDT): -The Pt continues to feel like he is constantly SOB and is asking to be put on Oxygen FINANCIAL ANALYST ACCOUNTANT -The Pt was given a list of labs to complete and once done then the Pt will be scheduled appointment with his Tower Equipment Installer -The Pt and the Tower Equipment Installer will decide together if the pt needs to be on O2 FINANCIAL ANALYST ACCOUNTANT or not 08/18/2021 Pulmonary Note: Assessment: Mr. [...] ways in which he can request an crate icer over the phone and I am happy [...] complaints are out of proportion to seemingly prdq-po-qxhzfkcz asthma and his dyspnea is likely multifactorial. [...] and will return in August with Dr. Suraez or sooner as needed.? Plan: - ABG, [...] ways in which he can request an crate icer over the phone and I am happy [...] complaints are out of proportion to seemingly rwmu-oc-fhfpyayp asthma and his dyspnea is likely multifactorial. [...] in collaboration with Dr. Deep Yo. ?? [facility] Quality Initiatives: ?? Tobacco counseling: Patient [...] allergies spent 20 mins with Pt using Solomon Islander Interpretor 1674 Assessment & Plan (11/14/2020 11:15 [...] 7 years for colon cancer screening purposes.??Used Solomon Islander interpretor 8245 Assessment & Plan (06/16/2021 10:23 [...] years for colon cancer screening purposes. Used Solomon Islander interpretor 8245 Assessment & Plan (09/13/2020 7:30 [...] years for colon cancer screening purposes. Used Solomon Islander interpretor 3293 Assessment & Plan (06/24/2020 4:13 PM EST): Pt was informed of the following message and told to call and was asked to call to make a colonoscopy appointment 06/03/20 12:29 PM Message from [facility] at [address] [place] [address] Called patient to cancel pre colon appointment, [...] is often not covered by insurance). ?? Craolyn Marin MD, S Cardiovascular Medicine Decrease amlodipine [...] the Pt had colonoscopy at [facility] in [facility] and was told to return in a [...] REPORT ? Patient: DARREL BHARDWAJ ?MR #: [id number] ([id number]) ?Submitted by: Hedy Hameed MD STOMACH, BIOPSY [...] disordered breathing. RECOMMENDATIONS / PLAN : -Current [employer] [employer] recommendations for treatment of [...] Pt Called patient with Jose Rolon. Nancy #[id number]. Patient said that he has an old ResMed that he received in [place] He doesn't know his mode or settings. Nor does he know his previous DME Assessment & Plan (09/10/2021 5:40 PM EDT): The Pt has an Sleep Apnea appointment on 09/24/2021 at??4:20 PM with Ryanne Ocasio MD at the Diabetes Center at [address] [facility] Assessment & Plan (09/24/2019 3:03 PM EDT): [...] spent 45 mins with Pt with a perfusionist SLEEP STUDY - [facility] - [phone] Assessment & Plan (09/09/2019 3:22 PM EDT): Pt typically sleep 2.5 hours a night, Pt [facility] a sleep ap[facility] clinic in [place] will talk to him, Pt has a BMI of 40.4 and PCP will put a referral in for sleep apnea for Pt today, spent 35 mins with Pt with a perfusionist Diabetic foot (HC Code) (HC CODE) 02/07/2019 Assessment & Plan (06/24/2022 9:27 AM EST): The Pt continues to deal with bilateral foot pain and wears a pair of Diabetic shoes with specification ordered by his Assayer Doctor Assessment & Plan (05/31/2021 2:00 PM EST): The Pt continues to deal with bilateral foot pain and needs to get a pair of Diabetic shoes with specification ordered by his Assayer Doctor and will increase Gabapentin from 400 mg PO BID to 800 PO BID Assessment & Plan (01/04/2021 10:02 AM EDT): - recently seen in mid-December by Podiatry- note reviewed Assessment & Plan (10/14/2020 9:29 AM EDT): The Pt continues to deal with bilateral foot pain and needs to get a pair of Diabetic shoes with specification ordered by his Assayer Doctor see below: 08/26/2020 Podiatry Note: Bilateral [...] Also using his neuropathic compounding formula from [employer] as an adjunctive therapy and likes it [...] is working with his Diabetic Specialist at [facility] and has an appointment next week, will increase his Gababentin to 800 mg PO TID and assess effectiveness in one month Assessment & Plan (02/07/2019 6:48 AM EDT): Pt needs a Podiatry appointment due to toe nails need to be cut and Pt needs establish care with a Assayer for his annual diabetic foot care Diabetic eye exam 02/07/2019 Assessment & Plan (06/24/2022 9:29 AM EST): The Pt stated today that he saw his Eye Doctor, unable to see event in [facility] Assessment & Plan (09/18/2020 6:10 PM EDT): Pt has complaints of vision changes and he blew a blood vessel on his sclera, 3 years ago the Pt would see his Retina Doctor who did a lazer every 6 month, Pt needs a retinal eye referral 09/18/2020 Jeovanny Lynn: I put a referral in for the Pt and lately the [facility] has not been given dates for [...] is in need of seeing eye doctor [facility]. Patient can be reached at [phone]. Ms. Rosales can be reached at the same number [phone]. Thank you Deep Assessment & Plan (05/28/2020 [...] 2019, the Pt needs to call the [facility] [address] [phone] Assessment & Plan (10/14/2020 2:13 PM EDT): [...] (01/04/2019 4:02 PM EDT): Pt needs a Solomon Islander speaking Nurse to help him manage his [...] -Pt will be called biweekly by the [facility] Nurse to review his FBS finger sticks [...] medications -He has been following with the [facility] team and reports taking all of [...] decided to move his family back to [facility] due to being closer to family and [...] (DEXCOM G6 SENSOR) device and scanner Asked Embroidery Worker to schedule a 1/2 hour Nurse visit [...] 200-300 average, checks ACHS -Pt has his [facility] appt on 04/21/2022 at 11:30 AM [...] Pt will continues to go to his [facility] appointments to review his Dexcom G6 numbers and make appropriate medication changes -If all that happens then the Pt can also scan before each meal, switch from taking 30 units of prandial insulin to start a Sliding Scale -Will leave note with Pt's Entrepreneur that the Pt needs to have Provider use a Shear Grinder Operator due to his poor Nepalese skills -The Pt has received the Dexcom G6 department coordinator and scanner but still does not know [...] Pt will continues to go to his [facility] appointments to review his Dexcom G6 [...] EDT): -Met with Pt and with our [facility] RN who was able to translate the [...] 190u??bid 2.Novolog 30??before meals + supplementary sliding -480-->4u, 200-249-->6u,??250-299-->8u, 300-349-->10u, >350-->12u 3.continue with ??trulicity 4.5 mg weekly, jardiance 25 mg daily and metformin 1000 mg bid 4.contact us in 1 week to report BG 5.Check BS 4X/day. Keep organized log and bring it next time.??Call [facility] for use of Dexcom CGM [...] yes ?? Recommendations: #Diabetes: 1. Continue with [id number] 190u bid 2.Novolog 30 before meals + supplementary sliding scale ?150-199-->??4??units ?200-249-->??6??units ?250-299-->??8??units ?300-349-->??10units ?>350-->?12 3.continue with trulicity 4.5 mg weekly, jardiance 25 mg daily and metformin 1000 mg bid 4.contact us in 1 week to report BG 5.Check BS 4X/day. Keep organized log and bring it next time. Call [facility] for use of Dexcom [...] his painful foot issues -Will talk with [facility] Nurse about the Pt and support systems may not be compliant with taking meds and Insulin on a regular basis -Will work on bring the Pt's A1C down, it has been in the 's for the past year and Pt not wanting to see [facility] or [facility] Diabetic Specialist -Will have to set [...] the Bariatric Doctor for weight loss -Used Shear Grinder Operator # [id number] -Pt wished he could get his diabetic care restarted at the [facility] -Pt does not want to go to [facility] Diabetic Clinic or the [facility] clinic due to not feeling comfortable [...] Pt needs to be rescheduled with our [facility] Diabetic Clinic with Zena Hines PA, the Pt did not like dealing with [facility] due to not feeling comfortable with the [facility] Providers and has had missed multiple appointments The Pt continues to deal with an elevated A1C, Pt wished he could get his diabetic care restarted at the [facility], will refer today ?? Results [...] MD sent at 09/30/2021 Regarding: RE: reschedule wardrobe mistress appointment I think this is his 3rd [...] Ocasio MD at the Diabetes Center at [address] [place] [address], Pt wished he could get his diabetic care restarted at the [facility], Pt advised to go to [...] LDL 90 01/25/2021 MALCRR 3,278 (H) 09/16/2019 Outpatient/[facility]IC[facility] meds BLOOD GLUCOSE METER (Earn and PlayUCH VERIO FLEX METER) device dulaglutide (TRULICITY) 4.5 mg/0.5 mL PnIj flash glucose (FREESTYLE ORTEGA 14 DAY) scanning reader FREESTYLE ORTEGA 14 DAY sensor kit insulin aspart (NOVOLOG FLEXPEN INSULIN) 100 unit/mL (3 mL) pen insulin regular human CONCENTRATED 500 units/mL (HUMULIN R U-500, CONC, KWIKPEN) injection pen JARDIANCE 25 mg tablet metFORMIN (GLUCOPHAGE) 1000 mg tablet - continues to see [facility] - recent finger stick readings 350, no symptoms of hyperglycemia - discussed with patient taking medications as prescribed as well as changing diet - recommended to reduce carb intake and simple carbs throughout the day and night and see if fasting glucose improved in morning - plans to see [facility] clinic soon Assessment & Plan (04/23/2021 10:36 AM EST): The Pt continues to [facility] and stated that his Finger sticks range between 98-160, Pt needs to get additional labs to assess kidney fx and his diabetes Assessment & Plan (01/08/2021 1:21 PM EDT): The Pt continues to deal with elevated A1C and sees his Entrepreneur on a regular basis Results for DARREL [...] and has a f/u appointment with his Entrepreneur on 09/29/2020 08/27/2020 Endocrine referral: Assessment and [...] his blood sugars. Could also consider insulin bench manager like pioglitazone at low dose. ?? [...] Krystle Santos RN Spoke with pharmacist at [facility], states if PCP will send scripts for [...] between 7 or 8 and talked through perfusionist [id number] that the Pt has to have [...] to 110 and send message to his auto specialty services manager Isha Carmen APRN??with [facility] Assessment & Plan (05/28/2020 3:01 [...] to 105 and send message to his auto specialty services manager Isha Carmen APRN with [facility] ?? Assessment & Plan (04/08/2020 [...] the care of Isha Carmen APRN with [facility] and was last prescribed insulin [...] - 64 pg/mL 64.2 74 (H) Vitamin C02-Bscanby Latest Ref Range: 20 - 50 ng/mL [...] Diabetic care will be transferred over to [facility] and he has the following [...] like to speak with his pcp first [phone] (cuban speaking) Assessment & Plan (11/13/2019 7:10 PM [...] - 22 (calc) 23 (H) eGFR (NON -Macedonian) Latest Ref Range: > OR = 60 [...] Pt is currently seeing our Diabetic Specialist FINANCIAL ANALYST ACCOUNTANT at [facility], talking with FINANCIAL ANALYST ACCOUNTANT on phone the Pt has developed an [...] 10, Pt needs to meet with the [facility] Nurse with the goal to bring his [...] will continue to see Diabetic Clinic at [facility] for additional medication adjustments and will [...] will continue to see Diabetic Clinic at [facility] and re-evaluate Pt care in one [...] 6-8 weeks to be seen by his amplifier mechanic Dr. Newberry. ?? Attending Addendum: I have [...] that he is on this. I contacted [facility] pharmacy and they reported that on [...] call back to Fani Heath PharmD at [phone] 08/04/21 Fain Heath PharmD called Pt Called patient for scheduled pharmacist HTN visit. I was not able to reach patient and LVM requesting a call back. ID [id number] assisted call. Of note, appears patient was [...] Dr. Newberry and should be visible in [employer]. We would like you to please call [...] pain and dyspnea # h/o CVA (NOT [place] -- historical charting error) # Dyslipidemia with [...] seen and discussed with cardiology attending Dr Mrain. ?? Mariah Newberry MD MPH PGY-4 ?? [...] pain and dyspnea # h/o CVA (NOT [place] -- historical charting error) # Dyslipidemia with [...] basis by his , will ask our [facility] Nurse to call Pt and verify their [...] basis by his , will ask our [facility] Nurse to call Pt and verify their [...] recent creatinine/potassium from 01/07 stable, recheck in [facility] this week Assessment & Plan (01/04/2021 9:26 [...] in one week to manage HTN, used station repairer [id number], Pt denies experiencing any pain or tightness [...] EST): When the Pt was admitted to [facility] for [facility] they had stopped his Lisinopril [...] medication up weekly, spent 35 min with Shear Grinder Operator [id number], will f/u with Pt in one month [...] needs to get all his meds in cuban and has an appointment on 02/24/2020 02/24/2020 ??3:40 PM Provider Deep Pruitt APRN [facility] Assessment & Plan (02/22/2020 5:19 AM EDT): I see that Losartan help protect the kidneys from damage due to diabetes, I will discontinue the atenolol and start him at Losartan 25 mg and slowly titrate him up and the Pt needs to get all his meds in cuban and has an appointment on 02/24/2020 02/24/2020 ??3:40 PM Provider Deep Pruitt APRN [facility] Assessment & Plan (03/16/2019 6:10 [...] (calc) 6.9 (H) The ASCVD Risk score (Toledohenry WOODWARD Jr., et al., 2013) failed to calculate for the following reasons: The patient has a prior [place] or stroke diagnosis Assessment & Plan (12/18/2018 [...] to call Pt with results seen below (Solomon Islander only please) -And let him know that his UTI results were negative and there is no reason for antibiotics 09/08/2021 PCP Note: Pt c/o burning with urination for the past 2 day, will ask Pt to do a urine culture before prescribing an Antibiotic medication used Solomon Islander interpretor [id number] 09/10/2021 PCP Addendum Note: The Pt has [...] the Pt had colonoscopy at [facility] in [facility] and was told to return in a year for further surveillance because he had several polyps removed, the concern is that the Pt had a CVA x 2 in 2017 and need Neuro clearance and the Neuro referral was put in today Assessment & Plan (11/13/2019 7:05 PM EDT): Pt had a Colonoscopy done in [facility] in [facility] one year ago and was told to [...] AM EDT): 01/02/2020 the 49 yo male (Solomon Islander speaking only) with a BMI of 39.6, last A1C Dec 2019 increased to 13.7, in 2017 the Pt had a right sided stroke (minimal residual speech and walking issues) and is working with our Diabetic FINANCIAL ANALYST ACCOUNTANT Specialist to bring his sugars down, Pt [...] Plan (11/13/2019 7:08 PM EDT): Used a Shear Grinder Operator [id number] for the entire 25 min visit, Pt [...] with Pt in 1 weeks, used a Shear Grinder Operator [id number] throughout the visit -10/23/2019 the Pt again [...] with Pt in 2 weeks, used a Shear Grinder Operator Propio through out the visit Assessment & [...] (H) -Pt will be referred to the [facility] Disability Aide to assess if his current diet is [...] Perla Rice RN message to Deep Pruitt FINANCIAL ANALYST ACCOUNTANT Call was returned to patient and his [...] input from his primary care physician and bridge painter helper would be helpful. Considerations would include: stopping amlodipine, increasing diuretics, re-assessing labs for kidney function (e.g. is proteinuria worsening), and dietary interventions. Also counseled patient that weight loss would likely be helpful. I think his roving department supervisor can be helpful with managing his midfoot [...] input from his primary care physician and bridge painter helper would be helpful. Considerations would include: stopping amlodipine, increasing diuretics, re-assessing labs for kidney function (e.g. is proteinuria worsening), and dietary interventions. Also counseled patient that weight loss would likely be helpful. I think his roving department supervisor can be helpful with managing his midfoot [...] plan for regular follow up with your roving department supervisor, primary care physician, and bridge painter helper ?? Follow-up: as needed with me ?? Other interventions: recommend keeping the legs elevated when sitting (try to get feet above the level of the heart to get the fluid to come down; also recommend new pair of custom graduated compression stockings - wear daily - please call [facility] for an appointment to be measured for the new stockings so they fit you well. [facility] [address] [place] [address], [place] [address] , PCP Notes: Will stop Amlodipine 5 mg PO QD and start Pt on Spirolactone 25 mg PO QD and assess in 2 weeks if Spirlactatone needs to be increased to 25 mg BID Will fax to [facility] order for Compression stocking and put contact info in AVS for the Pt to call and arrange for sizing CCM: 10 minutes 12/29/2020 Deep Pruitt APRN Assessment & Plan (06/24/2020 3:44 PM EST): 06/13/2020 the Pt had 2 pairs of Knee high compression stockings ordered and sent to [facility] and the Pt has to call [facility] so he can be measured and then pick them up when they arrive Assessment & Plan (06/13/2020 7:10 AM EST): Pt continues to deal with bilateral lower extremity edema will order Compression sleeves today from [facility] today, Put on lower legs during the day and take off at night, and wash and let dry and put on 2nd pair on the following day for Edema, lower extremity R60.0, will send to [facility] today Assessment & Plan (05/26/2020 5:58 [...] in 2 days at his next appointment Solomon Islander Interpretor #[id number] CCM: 20 minutes 05/26/2020 Deep [...] MD Department Ambulatory Surgical Specialties - Vascular [facility] [address] ??[place] [address] Assessment & Plan (01/30/2020 4:18 PM EDT): [...] EST): When the Pt was admitted to [facility] for NICOLAS they had stopped his Lisinopril [...] needs to get all his meds in [place], sued perfusionist Mikhail Lore Administrative encounter 02/07/201909/2020 Assessment & Plan (02/07/2019 7:01 AM EDT): The Pt asked for a [place] State form Medical Report for Person who needs care , with Goal to have the Pt's partner as his coding quality analyst, spent 10 mins filling it out Stroke [...] Never 05/19/2022 How often do you attend [facility] or luther[facility] services? More than 4 times [...] Date Recorded PHQ-2 Total Score 2 02/17/2022 [facility] of Occupat ional Health - Occupational Stress [...] your living situation today? I have a [facility] place to live 05/19/2022 Sex and [...] caries associated with failed or defective dental episcopalian Dental caries on smooth surface penetrating into [...] Results * (ABNORMAL) POCT HgbA1c, total CPT: 79244 (06/23/2022 4:21 PM EST) Pathologist [facility] Hemoglobin A1C, POC 10.6 4.0 - 6.0 % [facility] Test Lot Number [id number] [facility] Test Lot Exp Date 09/18/22 Date Format: MM/DD/YYYY [facility] Blood specimen (specimen) 06/23/2022 4:21 PM EST Deep Pruitt APRN POINT OF CARE TEST ORDERABL ES Final Result Performing Organization Address [facility] Co de Phone Number [facility] * (ABNORMAL) LDL cholesterol, direct (03/14/2022 9:17 AM EST) Pathologist [facility] Direct LDL 101(H) <100 mg/dL [facility] [...] Comment Performing Lab: ?Site ID: [id number] ?Name: [facility] ?Address: [address] [place] [address], [place] [address] ?Director: Yadira Bowman M.D. Deep Pruitt APRN LAB BLOOD ORDERABLES Final Result Performing Organization Address City/[facility] Co de Phone Number [facility] [address] [place] [address] * (ABNORMAL) Albumin/creatinine panel, urine, random (02/15/2022 2:02 PM EDT) Pathologist [facility] Albumin, Urine, Random 1,885.3 Reference Range Not Established mg/L 02/15/2022 3:42 PM EDT [facility] Creatinine, Urine, Random 60 Reference Range Not Established mg/dL 02/15/2022 3:42 PM EDT [facility] Albumin/Creatin ine Ratio, Urine, Random 3,168.6(H ) <30.0 mg/g Cr 02/15/2022 3:42 PM EDT [facility] Comment: Moderately increased albuminuria (formerly microalbuminuria): ??30-300 mg/g Cr Significantly increased albuminuria (overt albuminuria): ? >300 mg/g Cr Urine Collection / Unknown 02/15/2022 2:02 PM EDT 02/15/2022 2:59 PM EDT Yue Dominguez WOOD SKI MAKER URINE ORDERABLES Final Res ult Performing Organization Address City/State/[facility] Co de Phone Number [facility] [address] [place] [address] * PSA, total (Q) (09/09/2021 9:01 AM EDT) Pathologist [facility] Prostate Specific Antigen Total 0.44 < OR = 4.00 ng/mL [facility] Comment: The total PSA value from this assay system is standardized against the WHO standard. The test result will be approximately 20% lower when compared to the equimolar-standardized total PSA (Jana [place]). Comparison of serial PSA results should be [...] Comment Performing Lab: ?Site ID: [id number] ?Name: [facility] ?Address: [address] [place] [address], [facility], [place] [address] ?Director: Yadira Bowman M.D. us Deep Pruitt WOOD SKI MAKER LAB BLOOD ORDERABLES Final Result [facility] [address] [place] [address], [facility] * Colonoscopy (09/03/2020 10:16 AM EDT) [facility] Colonoscopy [facility] Endoscopy Patient Name: Darrel Bhardwaj ? Procedure Date: 09/03/2020 10:16 AM ?Date of : 1970 Age: 50 ? Admit Type: Outpatient Gender: Male ?CSN #: [id number] Note Status: Finalized ?Procedure Date no Time: [...] bowel preparation was evaluated using the BBPS ([place] ? Bowel Preparation Scale) with scores of: [...] Procedure Code(s): ?? --- Professional --- ? 83862, Colonoscopy, flexible; with biopsy, single or ? multiple Diagnosis Code(s): ?? --- Professional --- ? Z86.010, Personal history of colonic polyps ? D12.0, Benign neoplasm of cecum CPT copyright 2018 [employer]. All rights reserved. The codes documented in this report are preliminary and upon certified coder review may be revised to meet [...] In: 10:41:36 AM Scope Out: 10:58:33 AM [facility] 09/03/2020 10:1 6 AM EDT Provider Not In System GI PROCEDURE ORDERABLES F inal Result [facility] * Hepatitis C Ab with reflex to HCV PCR (02/06/2020 7:18 AM EDT) Hepatitis C Antibody Negative Negative 02/06/2020 4:21 PM EDT [facility] Comment:A negative result do es not exclude HCV infection, since antibodies are not detectable for 4-8 weeks after initial infection, or may not develop in compromised hosts. In high-risk individuals, repeat antibody testing in 2 months and/or HCV RNA PCR should be considered. Blood Venipuncture / Unknown 02/06/2020 7:18 AM EDT 02/06/2020 8:06 AM EDT Jordyn Reinier WOOD SKI MAKER LAB BLOOD ORDERABLES Fauzia l Result Performing Organization Address City/[facility] Co de Phone Number [facility] [address] [place] [address] * HIV 1/2 ag/ab, w/reflexes (Q) (12/10/2018 [...] ?? For additional information please refer to http://education.[facility].com/faq/HBB334 (This link is being provided for informational/ educational purposes only.) The performance of this assay has not been clinically validated in patients less than 2 years old. Blood 12/10/2018 10:3 2 AM EDT 12/10/2018 10:32 AM EDT Carlos Eduardo Joyner MD LAB BLOOD ORDERABLES Fi nal Result [facility] [address] [place] [address] from Last 3 Months or Most Recently Relevant to Health Maintenance Insurance [place] Advance Directives * Full ACLS (Latest Code Status on File) Date Activated Date Inactivated Comments 02/04/2020 9:46 PM 02/07/2020 8:23 PM Question Answer Comments With Whom was the Code Status Discussed? Patient Care Teams Injection Press Operator Relationship Specialty Start Date End Date Deep Pruitt APRN PCP - General 05/22/19
--- OUTSIDE RECORDS SUMMARY | 2024-07-23 08:47 | XMS_ITS | Encounter Summary ---
Author Organization [facility] Address [address] [place] [address] Care Team Providers Care Set Up Person Name Role Phone Deep Pruitt APRN Primary Care Provider [phone] Reason for Visit * Reason Comments Medication Refill Encounter Details Date Type Department Care Team ([facility] st Contact Info) Description 09/23/2020 Refill [facility] [address] [place] [address] Deep Pruitt APRN [address] [place] [phone] Medication Refill Social History Tobacco Use [...] Answer Date Recorded PHQ-2 Score 2 07/07/2020 [facility] of Occupat ional [facility] - Occupational Stress Questionnaire Answer [...] documented as of this encounter Care Teams Set Up Person Relationship Specialty Start Date End Date Deep Pruitt APRN PCP - General 05/22/19 documented as of this encounter
== END 2024-07-23 08:30 | disposition home or self-care (01) ==
LOC: HO.US 08:29
PROVIDERS: PCP Student in an Organized Health Care Education/Training Program; Visit Provider Surgery
DX: E11.29 Type 2 diabetes mellitus with other diabetic kidney complication (principal); R80.9 Proteinuria, unspecified; Z79.4 Long term (current) use of insulin; E66.9 Obesity, unspecified; Z68.37 Body mass index [BMI] 37.0-37.9, adult; M10.9 Gout, unspecified; E11.42 Type 2 diabetes mellitus with diabetic polyneuropathy; I10 Essential (primary) hypertension; I12.9 Hypertensive chronic kidney disease with stage 1 through stage 4 chronic kidney disease, or unspecified chronic kidney disease; E11.22 Type 2 diabetes mellitus with diabetic chronic kidney disease; N18.32 Chronic kidney disease, stage 3b
CPT/HCPCS: 76700; 76981

== ENCOUNTER → 2024-07-23 08:31 | Outpatient (BNV) | payer MEDICAID, SELFPAY | PROVIDERS: PCP Student in an Organized Health Care Education/Training Program; Visit Provider Radiology Diagnostic Radiology | DX: K80.20 Calculus of gallbladder without cholecystitis without obstruction (principal); R16.0 Hepatomegaly, not elsewhere classified | CPT/HCPCS: 76700 ==

== ENCOUNTER 2024-07-24 11:37 | Outpatient (AMB) | payer MEDICAID, SELFPAY ==
--- NOTE | 2024-07-24 11:42 | HO.NEPHOV_ITS ---
Vital Signs 07/24/24 11:43 Height 5 ft 9 in Weight 267 lb BMI 39.4 BP 134/70 Blood Pressure Location Lt brachial Position Sitting Pulse 100 Pulse Source Pulse Oximeter Pulse Oximetry (%) 97 Oxygen Delivery Method Room Air Intake Visit Reasons: CKD/ 1 MO FU-Conf Building Construction Estimator Required: Yes Building Construction Estimator Language: Endoscopy Technican Services: Building Construction Estimator Present Building Construction Estimator Name: Owen [id number] Accompanied by: Spouse Allergies Penicillins [PENICILLINS] Allergy (Intermediate, Verified 07/24/24 11:42) RASH, DIFFICULTY BREATHING HPI Comments Details: Darrel is a 53 y/o male with a medical history of longstanding DMII, REGI, HTN, HLD, CVA with hemiparesis (reports in 2019), DM II, REGI, gout, GERD, rheumatoid arthritis and CKD3b. He is seen in follow up today. He is being enrolled in study now. In Mar 2024 for pneumonia, had NICOLAS (creatinine increased to 3.35 from baseline 2.23). Creatinine trended down & stable. (unclear what patient was taking, poor historian) .patient has elevated urine protein/creatinine ratio of ~14 .renal ultrasound from 03/25 unremarkable- bilateral pelviectasis without trevor hydronephrosis. serum immunofixation with faint IgG kappa monoclonal band present . Last vitamin D mildly low at 17, PTH elevated at 498, calcium normal at 9.2. Has been having high HbA1c which is getting better as per the patient [facility] Medical History (Updated 06/10/24 @ 09:50 by Joy Fry [facility]) HTN (hypertension) Leukocytosis Memory loss Obesity Idiopathic gout of multiple sites GERD (gastroesophageal reflux disease) Hypertensive chronic kidney disease Secondary hyperparathyroidism, renal Sleep apnea Type 2 diabetes mellitus Schizoaffective disorder Chronic pain syndrome Diabetic polyneuropathy Gout Surgical History History of esophagogastroduodenoscopy (EGD) H/O colonoscopy Family History Father Cancer Diabetes Mother Cancer Diabetes Colon cancer Family/Other Cancer Diabetes Social History Household Members: Spouse Housing: House Do you presently have visiting nurse or other home services: Yes Alcohol intake: never Patient Tobacco Use Status: Never used Tobacco service: No Review of Systems Const All systems reviewed & are unremarkable except as noted in HPI and below Physical Exam Vital Signs: Last Vital Signs Pulse 100 07/24/24 11:43 BP 134/70 07/24/24 11:43 Pulse Ox 97 07/24/24 11:43 Oxygen Delivery Method Room Air 07/24/24 11:43 BMI result Body Mass Index 39.4 Const General: comfortable and no acute distress Orientation/consciousness: patient oriented x3 HEENT Head: Yes normocephalic Mouth: Normal oral and palatal mucosa present Eyes EOM: EOMs intact bilaterally Neck Neck: Yes supple Resp Auscultation: clear to auscultation bilaterally Cardio Jugular venous distension: no JVD Rate: regular rate GI Palpation (GI): Soft to palpation Auscultation: normal bowel sounds General: Yes no CVA tenderness Back/Spine/Pelvis Back: no CVA tenderness Skin General skin exam: no rashes or lesions noted Neuro General: patient oriented x3 and moves all extremities Extrem General: Yes no pedal edema Results Reviewed Nephrology Results: No Data to Display Assessment & Plan Assessment & Plan (1) CKD (chronic kidney disease) stage 4, GFR 15-29 ml/min: Code(s): N18.4 - Chronic kidney disease, stage 4 (severe) Category: Medical (2) Diabetic nephropathy associated with type 2 diabetes mellitus: Code(s): E11.21 - Type 2 diabetes mellitus with diabetic nephropathy Category: Medical (3) Secondary hyperparathyroidism: Code(s): N25.81 - Secondary hyperparathyroidism of renal origin Category: Medical (4) Vitamin D deficiency: Code(s): E55.9 - Vitamin D deficiency, unspecified Category: Medical (5) HTN (hypertension): Code(s): I10 - Essential (primary) hypertension Category: Medical Qualifiers: Hypertension type: primary hypertension Qualified Code(s): I10 - Essential (primary) hypertension Plan CKD due to diabetic nephropathy. Has a faint monoclonal band present on workup. patient to continue furosemide 40mg once daily, He is on Jardiance. will consider re-starting low-dose CALEB/ARB for proteinuria (held due to recent NICOLAS). On Vitamin D. Volume status optimal. BP at home OK. No NSAID's. Good hydration. Being enrolled in study. Answered all questions. F/U labs ordered. Orders: Orders Complete Blood Count Auto Diff 2 Months E11.21 - Type 2 diabetes mellitus with diabetic nephropathy, N18.4 - Chronic kidney disease, stage 4 (severe) Creatinine 2 Months E11.21 - Type 2 diabetes mellitus with diabetic nephropathy, N18.4 - Chronic kidney disease, stage 4 (severe) Calcium 2 Months E11.21 - Type 2 diabetes mellitus with diabetic nephropathy, N18.4 - Chronic kidney disease, stage 4 (severe) Vitamin D 25-OH Total 2 Months E11.21 - Type 2 diabetes mellitus with diabetic nephropathy, N18.4 - Chronic kidney disease, stage 4 (severe) Parathyroid Hormone Intact 2 Months E11.21 - Type 2 diabetes mellitus with diabetic nephropathy, N18.4 - Chronic kidney disease, stage 4 (severe) Ferritin 2 Months E11.21 - Type 2 diabetes mellitus with diabetic nephropathy, N18.4 - Chronic kidney disease, stage 4 (severe) IRON PROFILE 2 Months E11.21 - Type 2 diabetes mellitus with diabetic nephropathy, N18.4 - Chronic kidney disease, stage 4 (severe) Blood Urea Nitrogen 2 Months E11.21 - Type 2 diabetes mellitus with diabetic nephropathy, N18.4 - Chronic kidney disease, stage 4 (severe) Electrolytes 2 Months E11.21 - Type 2 diabetes mellitus with diabetic nephropathy, N18.4 - Chronic kidney disease, stage 4 (severe) Phosphorus 2 Months E11.21 - Type 2 diabetes mellitus with diabetic nephropathy, N18.4 - Chronic kidney disease, stage 4 (severe) Coding Level of Care Code Est Pt Level 4 (97803) Diagnoses CKD (chronic kidney disease) stage 4, GFR 15-29 ml/min N18.4 Diabetic nephropathy associated with type 2 diabetes mellitus E11. Secondary hyperparathyroidism N25.81 Vitamin D deficiency E55.9 Primary hypertension I10 Hypertension type: primary hypertension
[2024-07-24 11:43] VITALS: BP 134/70; PULSE 100; O2SAT 97; BMI 39.4
--- OUTSIDE RECORDS SUMMARY | 2024-07-24 14:19 | XMS_ITS | Encounter Summary ---
Author Organization [facility] Address [address] [place] [address] Care Team Providers Care Supervisor Propellant Charge Loading Name Role Phone Deep Pruitt APRN Primary Care Provider Reason for Visit * Reason Comments Medication Refill Encounter Details Date Type Department Care Team ([facility] st Contact Info) Description 06/07/2022 Refill [facility] [address] [place], [place] [id number] Deep Pruitt APRN [address] [place] [address] Medication Refill [...] you attend chur ch or worship services? More than 4 times per year [...] Date Recorded PHQ-2 Total Score 2 02/17/2022 [facility] of Occupat ional Health [...] your living situation today? I have a [facility] place to live 05/19/2022 Sex and [...] as of this encounter Care Teams Supervisor Propellant Charge Loading Relationship Specialty Start Date End Date Deep Pruitt APRN PCP - General 05/22/19 documented as of this encounter
--- OUTSIDE RECORDS SUMMARY | 2024-07-24 14:20 | XMS_ITS | Encounter Summary ---
Author Organization [facility] Address [address] [place] [address] Care Team Providers Care Instructor Substitute Cosmetology Name Role Phone Deep Pruitt JOHN Primary Care Provider [phone] Reason for Visit * Reason Comments Medication Refill Encounter Details Date Type Department Care Team (Late st Contact Info) Description 07/20/2020 Refill [facility] Podiatry at [address] [place] [phone] Arben Fountain, NOLVIA [address] [place] [address] Medication Refill Social History Tobacco Use [...] Answer Date Recorded PHQ-2 Score 2 07/07/2020 [facility] Occupat ional Health [...] documented as of this encounter Care Teams Instructor Substitute Cosmetology Relationship Specialty Start Date End Date Deep Pruitt APRN PCP - General 05/22/19 documented as of this encounter
--- OUTSIDE RECORDS SUMMARY | 2024-07-24 14:20 | XMS_ITS | Encounter Summary ---
Author Organization [facility] Address [address] [place] [address] Care Team Providers Care Highway Patrol Officer Name Role Phone SonalDeep Niko LOPEZ Primary Care Provider Reason for Visit * Reason Comments Medication Refill Encounter Details Date Type Department Care Team (Late st Contact Info) Description 07/03/2020 Refill [facility] Nutrition at [address] [address] Zena Hines PA [address] [place] [address] Medication Refill Social History Tobacco [...] Answer Date Recorded PHQ-2 Score 2 07/07/2020 [facility] of Occupat ional Health - Occupational [...] for Metformin received. Pt was engaging with [facility] and continues with PCP. Unclear [...] documented as of this encounter Care Teams Highway Patrol Officer Relationship Specialty Start Date End Date Deep Pruitt APRN PCP - General 05/22/19 documented as of this encounter
--- OUTSIDE RECORDS SUMMARY | 2024-07-24 14:20 | XMS_ITS | Encounter Summary ---
Author Organization [facility] Address [address] [place] [address] Care Team Providers Care Animal Ride Manager Name Role Phone Deep Pruitt JOHN Primary Care Provider Reason for Visit * Reason Comments Medication Refill Encounter Details Date Type Department Care Team (Late st Contact Info) Description 05/12/2021 Refill [facility] Podiatry at [address] [place] [address] [phone] Arben Fountain, NOLVIA [address] [place] [address] Medication Refill Social History Tobacco [...] Recorded PHQ-2 Total Score 0 04/21/2021 [facility] - Occupational Stress Questionnaire Answer Date [...] documented as of this encounter Care Teams Animal Ride Manager Relationship Specialty Start Date End Date Deep Pruitt APRN PCP - General 05/22/19 documented as of this encounter
--- OUTSIDE RECORDS SUMMARY | 2024-07-24 14:20 | XMS_ITS | Encounter Summary ---
Author Organization [facility] Address [address] [place] [address] Care Team Providers Care Supervisor Respiratory Name Role Phone Deep Pruitt APRN Primary Care Provider Reason for Visit * Reason Comments Medication Refill Encounter Details Date Type Department Care Team ([facility] st Contact Info) Description 05/18/2020 Refill [facility] [address] [place] [address] Deep Pruitt APRN [address] [place] [phone] Medication Refill Social History Tobacco Use [...] Answer Date Recorded PHQ-2 Score 0 03/13/2020 [facility] of Occupat ional Health - [...] as of this encounter Care Teams Supervisor Respiratory Relationship Specialty Start Date End Date Deep Pruitt APRN PCP - General 05/22/19 documented as of this encounter
--- OUTSIDE RECORDS SUMMARY | 2024-07-24 14:20 | XMS_ITS | Encounter Summary ---
Author Organization [facility] Address [address] [place] [address] Care Team Providers Care Technical Services Assistant Name Role Phone Depe Pruitt APRN Primary Care Provider Reason for Visit * Reason Comments Medication Refill Encounter Details Date Type Department Care Team ([facility] st Contact Info) Description 07/10/2020 Refill [facility] [address] [place] [address] Deep Pruitt APRN [address] [phone] Medication Refill Social History Tobacco Use [...] Answer Date Recorded PHQ-2 Score 2 07/07/2020 [facility] of Occupat ional [facility] - Occupational Stress Questionnaire Answer Date [...] documented as of this encounter Care Teams Technical Services Assistant Relationship Specialty Start Date End Date Deep Pruitt APRN PCP - General 05/22/19 documented as of this encounter
--- OUTSIDE RECORDS SUMMARY | 2024-07-24 14:20 | XMS_ITS | Encounter Summary ---
Author Organization [employer] Address [address] 7t [place] [address] Care Team Providers Care Tear Down Matcher Name Role Phone Katrin Santoyo MD Primary Care Pro vider Edison Vieira MD Unavailable [phone] Joe Devi MD Unavailable [phone] Encounter Details Date Type Department Care Team (Late st Contact Info) Description 07/16/2024 9:45 AM EDT Office Visit [facility] [address] [place] [address] Moriah Herbert, HAYLEE [address] [place] [address] Chronic radicular lumbar pain (Primary Dx); Long-term [...] the past 12 months, has t he [employer], gas, oil or water tado threatened to shut off services in your [...] this encounter Progress Notes * Moriah Herbert, ADMITTANCE ATTENDANT - 07/16/2024 9:45 AM EDT Subjective: Darrel [...] the morning and 30mg before bed Topicals: vomjrloql-eamkojt-hduruc salicylate topical TID Related Specialists: Referral to [facility] 09/19/23, although per specialist, unable [...] kidney disease, with long-term current use of insulin([facility]) Current Assessment & Plan Lab Results Component Value Date HGBA1C 12.5 (H) 03/27/2024 - BG value improved s/p carb intake. Encouraged to continue monitoring BG closely and reviewed s/s hypoglycemia - From chart review, appears as though following with [facility] with last visit/encounter May 2024. - [...] PRN Indication: chronic radicular lumbar pain Last PRINT PRESS OPERATOR Agreement: 04/02/24 Follow up: 1-2 month for [facility]. Follow up as scheduled with PCP, sooner as needed. * Emili Cordero RN - 07/16/2024 9:45 AM EDT PRINT PRESS OPERATOR panel raiser operator: PDMP reviewed today. Last fill date: 05/28/24 [...] kidney disease, with long-termcurrent use of insulin ([facility]) Lab Results Component Value Date HGBA1C 12.5 (H) 03/27/2024 - BG value improved s/p carb intake. Encouraged to continue monitoring BG closely and reviewed s/s hypoglycemia - From chart review, appears as though following with [facility] with last visit/encounter May 2024. - [...] AM EDT Office Visit [facility] [address] [place] [address] 08/22/2024 1:15 PM EDT Office Visit [facility] [address] [place] [address] Katrin Santoyo MD [address] [place], [place] [phone] Scheduled Orders Name Type Priority Associated Diagnoses [...] 12.5(03/27/20 24 3:40 PM EST) No Eve Gzuman PharmD documented as of this encounter Procedures Procedure Name Priority Date/Time Associated Diagnosis Comments POCT GLUCOSE Routine 07/19/2024 9:19 AM EDT Type 2 diabetes mellitus with stage 3 chronic kidney disease, with long-term current use of insulin, unspecified whether stage 3a or 3b CKD ([facility]) POCT GLUCOSE Routine 07/19/2024 9:17 AM EDT Type 2 diabetes mellitus with stage 3 chronic kidney disease, with long-term current use of insulin, unspecified whether stage 3a or 3b CKD (CMS/HCC) POCT RIKKI-14 URINE DRUG SCREEN Routine 07/16/2024 11:31 AM EDT Chronic radicular lumbar pain documented in this encounter Results * POCT Glucose (07/19/2024 9:19 AM EDT) [facility] Glucose Blood, POC 105 60 - 200 mg/dL Comment:random QC Media Lot # [id number] Lot# Expiration Date Blood Capillary blood specimen / Unknown 07/19/2024 9:19 AM EDT us Moriah Herbert [facility] POINT OF CARE TEST ENTER/EDIT ORDERABLES Final Result * POCT Glucose (07/19/2024 9:17 AM EDT) Glucose Blood, POC 89 60 - 200 mg/dL Comment:random QC Media Lot # [id number] Lot# Expiration Date Blood Capillary blood specimen / Unknown 07/19/2024 9:17 AM EDT [address] [facility] POINT OF CARE TEST ENTER/EDIT ORDERABLES Final Result * POCT RIKKI-14 Urine Drug Screen (07/16/2024 11:31 AM EDT) Urine Urine specimen obtained by clean catch procedure / Unknown 07/16/2024 11:31 AM EDT Narrative Emili Cordero RN - 07/16/2024 11:31 AM EDT UTOX cup Lot#[id number] Exp. 12/25/25 Internal Pass Control UTOX Negative for all substances. Moriah Herbert [facility] POINT OF CARE TEST ENTER/EDIT ORDERABLES [...] documented as of this encounter Care Teams Tear Down Matcher Relationship Specialty Start Date End Date Katrin Santooy MD [address] [place] [address] PCP - General Internal Medicine 12/13/22 Edison Vieira MD [address] [place] [address] Pulmonary Disease 04/07/24 Joe Devi MD [address] [facility] 3rd [place] [address] Gastroenterology 04/07/24 Carito Roche DNP [address] [facility], [address] [place] [address] Nephrology 04/07/24 Ze[employer] 04/11/24 documented as of this encounter
--- OUTSIDE RECORDS SUMMARY | 2024-07-24 14:20 | XMS_ITS | Encounter Summary ---
Author Organization [facility] Address [address] [place] [address] Care Team Providers Care Natural Gas Field Processing Supervisor Name Role Phone Deep Pruitt APRN Primary Care Provider Reason for Visit * Reason Comments Medication Refill Encounter Details Date Type Department Care Team ([facility] st Contact Info) Description 06/30/2021 Refill [facility] [address] [place], [place] [phone] Deep Pruitt APRN [address] [place] [address] Medication Refill Social History Tobacco [...] Date Recorded PHQ-2 Total Score 3 05/31/2021 [facility] of Occupat ional [...] of this encounter Care Teams Natural Gas Field Processing Supervisor Relationship Specialty Start Date End Date Deep Pruitt APRN PCP - General 05/22/19 documented as of this encounter
--- OUTSIDE RECORDS SUMMARY | 2024-07-24 14:20 | XMS_ITS | Encounter Summary ---
Author Organization [employer] Address [address] [facility] [address] 7[address] [place] [address] Care Team Providers Care Match Up Person Name Role Phone Katrin Santoyo MD Primary Care Pro vider Edison Vieira MD Unavailable [phone] Joe Devi MD Unavailable [phone] Reason for Visit * Reason Comments Walk-In diarrhea, stomach pa in Encounter Details Date Type Department Care Team (Late st Contact Info) Description 07/17/2024 5:00 PM EDT Office Visit [facility] [address] [place], [place] [phone] Cleo Reynoso FNP [address] [place], [place] [phone] Diarrhea, unspecified type (Primary Dx) Social History [...] who presents for Walk-In (diarrhea, stomach pain). Assembler Ping Pong Table (Carin) present and served as pure culture operator during visit. Darrel reports he has not [...] Immodium ordered Red flags reviewed Return to [facility] if sx worsen or persist Other [...] Visit [facility] [address] [place] [address] 08/22/2024 1:15 PM EDT Office Visit [facility] [address] [place] [address] Katrin Santoyo MD [address] [place] [address] documented as of this encounter Goals Goal [...] documented as of this encounter Care Teams Match Up Person Relationship Specialty Start Date End Date Katrin Santoyo MD [address] [place] [address] PCP - General Internal Medicine 12/13/22 Edison Vieira MD [address] [place] [address] Pulmonary Disease 04/07/24 Joe Devi MD [address] [place] [address] 3rd [place] [address] Gastroenterology 04/07/24 Carito Roche DNP [address] [facility], [address] [place] [address] Nephrology 04/07/24 [employer] 04/11/24 documented as of this encounter
--- OUTSIDE RECORDS SUMMARY | 2024-07-24 14:20 | XMS_ITS | Encounter Summary ---
Author Organization [facility] Address [address] [place] [address] Care Team Providers Care Machine Silver Stripper Name Role Phone Deep Pruitt APRN Primary Care Provider Reason for Visit * Reason Comments Medication Refill Encounter Details Date Type Department Care Team ([facility] st Contact Info) Description 05/27/2020 Telephone [facility] [address] [place] [address] Deep Pruitt APRN [address] [place] [address] Medication Refill Social History Tobacco [...] Answer Date Recorded PHQ-2 Score 0 03/13/2020 [facility] of Occupat ional Health [...] medications and request someone calls him at [phone] documented in this encounter Plan of Treatment [...] as of this encounter Care Teams Machine Silver Stripper Relationship Specialty Start Date End Date Deep Pruitt APRN PCP - General 05/22/19 documented as of this encounter
--- OUTSIDE RECORDS SUMMARY | 2024-07-24 14:20 | XMS_ITS | Encounter Summary ---
Author Organization [facility] Address [address] [place] [address] Care Team Providers Care Plumbing And Heating Mechanic Name Role Phone Deep Pruitt APRN Primary Care Provider [phone] Reason for Visit * Reason Comments Other Encounter Details Date Type Department Care Team ([facility] Contact Info) Description 05/24/2022 Telephone [facility] [address] [place] [address] Deep Pruitt APRN [address] [place] [phone] Other Social History Tobacco Use Types [...] you attend chur ch or advent services? More than 4 times per year [...] Date Recorded PHQ-2 Total Score 2 02/17/2022 [facility] Occupational Stress Questionnaire Answer Date [...] your living situation today? I have a [facility] to live 05/19/2022 Sex and [...] AM EST Patient best call back number [phone]. Patient has an upcoming appt with his [...] documented as of this encounter Care Teams Plumbing And Heating Mechanic Relationship Specialty Start Date End Date Deep Pruitt APRN PCP - General 05/22/19 documented as of this encounter
--- OUTSIDE RECORDS SUMMARY | 2024-07-24 14:20 | XMS_ITS | Encounter Summary ---
Author Organization [facility] Address [address] [place] [address] Care Team Providers Care Lumber Puller Name Role Phone Deep Pruitt APRN Primary Care Provider Reason for Visit * Reason Comments Medication Refill Encounter Details Date Type Department Care Team (Late st Contact Info) Description 06/19/2020 Refill [facility] [address] [place], [place] [phone] Janel Cummins APRN [address] [place] [phone] Medication Refill Social History Tobacco Use Types [...] as of this encounter Care Teams Lumber Puller Relationship Specialty Start Date End Date Deep Pruitt APRN PCP - General 05/22/19 documented as of this encounter
--- OUTSIDE RECORDS SUMMARY | 2024-07-24 14:20 | XMS_ITS | Encounter Summary ---
Author Organization [employer] Address [address] [facility] [address] 7t [place] [address] Care Team Providers Care Picture Enlarger Name Role Phone Katrin Santoyo MD Primary Care Pro vider Edison Vieira MD Unavailable [phone] Joe Devi MD Unavailable [phone] Encounter Details Date Type Department Care [...] t he electric, gas, oil or water [employer] threatened to shut off services in your [...] Description 08/13/2024 9:45 AM EDT Office Visit [facility] [address] [place] [address] [phone] 08/22/2024 1:15 PM EDT Office Visit [facility] [address] [place] [address] Katrin Santoyo MD [address] [place] [address] documented as of this encounter Goals Goal [...] documented as of this encounter Care Teams Picture Enlarger Relationship Specialty Start Date End Date Katrin Santoyo MD [address] [place] [address] PCP - General Internal Medicine 12/13/22 Edison Vieira MD [address] [place] [address] Pulmonary Disease 04/07/24 Joe Devi MD [address]rd [place] [address] Gastroenterology 04/07/24 Carito Roche DNP [address] [place] [address] Nephrology 04/07/24 [employer] 04/11/24 documented as of this encounter
--- OUTSIDE RECORDS SUMMARY | 2024-07-24 14:20 | XMS_ITS | Encounter Summary ---
Author Organization [facility] Address [address] [place] [address] Care Team Providers Care Center Administrator Name Role Phone Deep Pruitt APRN Primary Care Provider Reason for Visit * Reason Comments Medication Refill Encounter Details Date Type Department Care Team ([facility] st Contact Info) Description 06/19/2020 Refill [facility] [address] [place] [address] Deep Pruitt APRN [address] [place] [phone] Medication Refill Social History Tobacco Use [...] Answer Date Recorded PHQ-2 Score 0 03/13/2020 [facility] of Occupat ional [...] documented as of this encounter Care Teams Center Administrator Relationship Specialty Start Date End Date Deep Pruitt APRN PCP - General 05/22/19 documented as of this encounter
--- OUTSIDE RECORDS SUMMARY | 2024-07-24 14:20 | XMS_ITS | Encounter Summary ---
Author Organization [facility] Address [address] [place] [address] Care Team Providers Care Mini Baccarat Dealer Name Role Phone Deep Pruitt Niko LOPEZ Primary Care Provider Reason for Visit * Reason Comments Medication Refill Encounter Details Date Type Department Care Team (Late st Contact Info) Description 05/06/[address] [phone] Arben Fountain, NOLVIA [address] [place] [address] Medication Refill Social History Tobacco Use [...] documented as of this encounter Care Teams Mini Baccarat Dealer Relationship Specialty Start Date End Date Deep Pruitt APRN PCP - General 05/22/19 documented as of this encounter
--- OUTSIDE RECORDS SUMMARY | 2024-07-24 14:20 | XMS_ITS | Encounter Summary ---
Author Organization [facility] [employer] [facility] Address [address] [place] [address] Care Team Providers Care Roving Court Reporter Name Role Phone Deep Pruitt APRN Primary Care Provider Reason for Visit * Reason Comments DME Encounter Details Date Type Department Care Team (Late st Contact Info) Description 04/11/2022 Documentation Sleep Medicine Program at [address] [place] [address] Jarad De Leon MD [address] [place] [phone] Social History Tobacco Use Types Packs/Day [...] PHQ-2 Total Score 2 02/17/2022 [facility] of Occupat [...] as of this encounter Care Teams Roving Court Reporter Relationship Specialty Start Date End Date Deep Pruitt APRN PCP - General 05/22/19 documented as of this encounter
--- OUTSIDE RECORDS SUMMARY | 2024-07-24 14:20 | XMS_ITS | Encounter Summary ---
Author Organization [facility] Address [address] [place] [address] Care Team Providers Care Teaching Aide Name Role Phone Sonal Deep Niko LOPEZ Primary Care Provider [phone] Reason for Visit * Reason Comments Medication Refill Encounter Details Date Type Department Care Team ([facility] st Contact Info) Description 05/10/2021 Refill [facility] [address] [place] [phone] Aliya Pond, [address] [address] Medication Refill Social History Tobacco [...] Date Recorded PHQ-2 Total Score 0 04/21/2021 [facility] - [...] documented as of this encounter Care Teams Teaching Aide Relationship Specialty Start Date End Date Deep Pruitt APRN PCP - General 05/22/19 documented as of this encounter
--- OUTSIDE RECORDS SUMMARY | 2024-07-24 14:20 | XMS_ITS | Encounter Summary ---
Author Organization [facility] Address [address] [place] [address] Care Team Providers Care Lead Sales Consultant Name Role Phone Deep Pruitt APRN Primary Care Provider Encounter Details Date Type Department Care Team ([facility] st Contact Info) Description 06/13/2020 Scanned Document [facility] [address] [place], [place] [phone] Deep Pruitt APRN [address] [place] [address] Social History Tobacco Use Types [...] Answer Date Recorded PHQ-2 Score 0 03/13/2020 [facility] of Occupat ional Health - Occupational Stress [...] as of this encounter Care Teams Lead Sales Consultant Relationship Specialty Start Date End Date Deep Pruitt APRN PCP - General 05/22/19 documented as of this encounter
--- OUTSIDE RECORDS SUMMARY | 2024-07-24 14:20 | XMS_ITS | Encounter Summary ---
Author Organization [facility] Address [address] [place] [address] Care Team Providers Care Electrical Journeyman Name Role Phone Sonal Deep Niko LOPEZ Primary Care Provider [phone] Reason for Visit * Reason Comments Medication Refill Encounter Details Date Type Department Care Team ([facility] st Contact Info) Description 04/12/2021 Refill [facility] [address] [place] [phone] Aliya Pond, [address] [address] Medication Refill Social History Tobacco [...] Date Recorded PHQ-2 Total Score 1 03/24/2021 [facility] [...] as of this encounter Care Teams Electrical Journeyman Relationship Specialty Start Date End Date Deep Pruitt APRN PCP - General 05/22/19 documented as of this encounter
--- OUTSIDE RECORDS SUMMARY | 2024-07-24 14:20 | XMS_ITS | Encounter Summary ---
Author Organization [employer] Address [address] [facility] 7t [place] [address] Care Team Providers Care Veterinary Practice Manager Name Role Phone Katrin Santoyo MD Primary Care Pro vider Edison Vieira MD Unavailable [phone] Joe Devi MD Unavailable [phone] Reason for Visit * Reason Onset Date Comments Durable Medical Equipment 11/08/2023 Encounter Details Date Type Department Care Team (Late st Contact Info) Description 11/08/2023 Telephone [facility] [address] [place], [place] [phone] Katrin Santoyo MD [address] [place], [place] [phone] Durable Medical Equipment Social History Tobacco Use [...] 11/10/2023 11:01 AM EDT Call placed to [employer] spoke to Zhen who was informed on 10/31/23 we faxed over RX with the qty on it. He reports that what they need is the letter of medical necessity not the Rx. He reports he will fax it to blue team at [phone] and once signed and faxed back it will be all set. Awaiting do cument. * Telephone Encounter - Mauricio Taylor - 11/08/2023 3:57 PM EDT Tc from Tanya at [facility] line calling to report the DME is missing the quantity and the description please sign and refax documented in this encounter Plan of Treatment Upcoming Encounters Date Type Department Care Team (Late st Contact Info) Description 08/13/2024 9:45 AM EDT Office Visit [facility] [address] [place] [address] 08/22/2024 1:15 PM EDT Office Visit [facility] [address] [place] [address] Katrin Santoyo MD [address] [place] [address] documented as of this encounter Goals Goal [...] documented as of this encounter Care Teams Veterinary Practice Manager Relationship Specialty Start Date End Date Katrin Santoyo MD [address] [place] [address] PCP - General Internal Medicine 12/13/22 Edison Vieira MD [address] [place] [address] Pulmonary Disease 04/07/24 Joe Devi MD [address] [facility] 3rd [place] [address] Gastroenterology 04/07/24 Carito Roche DNP [address] [facility], [address] [place] [address] Nephrology 04/07/24 [facility] 04/11/24 documented as of this encounter
--- OUTSIDE RECORDS SUMMARY | 2024-07-24 14:20 | XMS_ITS | Encounter Summary ---
Author Organization [facility] Address [address] [place] [address] Care Team Providers Care Internal Review And Audit Compliance Name Role Phone Deep Pruitt APRN Primary Care Provider Encounter Details Date Type Department Care Team ([facility] st Contact Info) Description 06/25/2021 Telephone [facility] [address] [place] [address] Deep Pruitt APRN [address] [place] [address] Social History Tobacco Use Types [...] documented as of this encounter Care Teams Internal Review And Audit Compliance Relationship Specialty Start Date End Date Deep Pruitt APRN PCP - General 05/22/19 documented as of this encounter
--- OUTSIDE RECORDS SUMMARY | 2024-07-24 14:20 | XMS_ITS | Encounter Summary ---
Author Organization [facility] Address [address] [place] [address] Care Team Providers Care Credit Underwriter Name Role Phone Deep Pruitt APRN Primary Care Provider Reason for Visit * Reason Comments Medication Refill Encounter Details Date Type Department Care Team ([facility] st Contact Info) Description 05/13/2020 Refill [facility] [employer] [address] [employer] [place], [place] [phone] Deep Pruitt APRN [address] [place] [address] Medication Refill Social History Tobacco [...] Answer Date Recorded PHQ-2 Score 0 03/13/2020 [facility] [place] of Occupat ional Health - Occupational Stress [...] as of this encounter Care Teams Credit Underwriter Relationship Specialty Start Date End Date Deep Pruitt APRN PCP - General 05/22/19 documented as of this encounter
--- OUTSIDE RECORDS SUMMARY | 2024-07-24 14:20 | XMS_ITS | Encounter Summary ---
Author Organization [facility] Address [address] [place] [address] Care Team Providers Care Material Handler 2Nd Shift Name Role Phone Sonal Deep Niko LOPEZ Primary Care Provider [phone]- [phone] Reason for Visit * Reason Comments Medication Refill Encounter Details Date Type Department Care Team ([facility] st Contact Info) Description 05/03/2021 Refill [facility] [address] [place] [address] [phone] Aliya Pond, [address] [address] Medication Refill Social History Tobacco [...] Date Recorded PHQ-2 Total Score 0 04/21/2021 [facility] - Occupational Stress Questionnaire [...] documented as of this encounter Care Teams Material Handler 2Nd Shift Relationship Specialty Start Date End Date Deep Pruitt APRN PCP - General 05/22/19 documented as of this encounter
--- OUTSIDE RECORDS SUMMARY | 2024-07-24 14:20 | XMS_ITS | Encounter Summary ---
Author Organization [facility] Address [address] [place] [address] Care Team Providers Care Warehouse Puller Name Role Phone Sonal Deep Niko LOPEZ Primary Care Provider [phone] Reason for Visit * Reason Comments Medication Refill Encounter Details Date Type Department Care Team ([facility] st Contact Info) Description 05/05/2021 Refill [facility] [address] [place] [address] 853151 Aliya Pond, [address] [address] Medication Refill Social History Tobacco [...] Date Recorded PHQ-2 Total Score 0 04/21/2021 [facility] - Occupational Stress Questionnaire [...] documented as of this encounter Care Teams Warehouse Puller Relationship Specialty Start Date End Date Deep Pruitt APRN PCP - General 05/22/19 documented as of this encounter
--- OUTSIDE RECORDS SUMMARY | 2024-07-24 14:20 | XMS_ITS | Encounter Summary ---
Author Organization [facility] [employer] [facility] Address [address] [place] [address] Care Team Providers Care Pump Oiler Name Role Phone Deep Pruitt APRN Primary Care Provider Reason for Visit * Reason Comments DME Encounter Details Date Type Department Care Team ([facility] st Contact Info) Description 05/04/2022 Documentation Sleep Medicine Program at [address] [place] [address] [phone] Jarad De Leon MD [address] [place] [phone] Social History Tobacco Use Types Packs/Day [...] Date Recorded PHQ-2 Total Score 2 02/17/2022 [facility] of Occupat ional Health [...] documented as of this encounter Care Teams Pump Oiler Relationship Specialty Start Date End Date Deep Pruitt APRN PCP - General 05/22/19 documented as of this encounter
--- OUTSIDE RECORDS SUMMARY | 2024-07-24 14:20 | XMS_ITS | Encounter Summary ---
Author Organization [facility] Address [address] [place] [address] Care Team Providers Care Designer/Writer Name Role Phone Deep Pruitt APRN Primary Care Provider Reason for Visit * Reason Comments Medication Refill Encounter Details Date Type Department Care Team ([facility] st Contact Info) Description 06/19/2020 Refill [facility] [address] [place] [address] Deep Pruitt APRN [address] [place] [phone] Medication Refill Social History Tobacco Use [...] Answer Date Recorded PHQ-2 Score 0 03/13/2020 [facility] of Occupat ional Health [...] documented as of this encounter Care Teams Designer/Writer Relationship Specialty Start Date End Date Deep Pruitt APRN PCP - General 05/22/19 documented as of this encounter
--- OUTSIDE RECORDS SUMMARY | 2024-07-24 14:20 | XMS_ITS | Encounter Summary ---
Author Organization [facility] Address [address] [place] [address] Care Team Providers Care Ux Research Associate Name Role Phone Deep Pruitt APRN Primary Care Provider Reason for Visit * Reason Comments Forms Encounter Details Date Type Department Care Team ([facility] Contact Info) Description 06/16/2020 Telephone [facility] [address] [place] [address] Deep Pruitt APRN [address] [place] [phone] Forms Social History Tobacco Use Types [...] Answer Date Recorded PHQ-2 Score 0 03/13/2020 [facility] of Occupat ional Health - [...] update on handicap forms for pt. Call [phone] documented in this encounter Plan of Treatment [...] documented as of this encounter Care Teams Ux Research Associate Relationship Specialty Start Date End Date Deep Pruitt APRN PCP - General 05/22/19 documented as of this encounter
--- OUTSIDE RECORDS SUMMARY | 2024-07-24 14:20 | XMS_ITS | Encounter Summary ---
Author Organization [facility] Address [address] [place] [address] Care Team Providers Care Machine Hoop Maker Helper Name Role Phone SonalDeep Niko LOPEZ Primary Care Provider Reason for Visit * Reason Comments Medication Refill Encounter Details Date Type Department Care Team (Late st Contact Info) Description 05/12/2020 Refill [facility] Nutrition at [address] [address] Zena Hines PA [address] [place] [address] Medication Refill Social History Tobacco [...] Pike Please review pt no longer seeing [facility] Wellness Dept for DM management. Katrin Sullivan [...] as of this encounter Care Teams Machine Hoop Maker Helper Relationship Specialty Start Date End Date Deep Pruitt APRN PCP - General 05/22/19 documented as of this encounter
--- OUTSIDE RECORDS SUMMARY | 2024-07-24 14:20 | XMS_ITS | Encounter Summary ---
Author Organization [employer] Address [address] [facility] 7t [place] [address] Care Team Providers Care Photographer Name Role Phone Katrin Santoyo MD Primary Care Pro vider Edison Vieira MD Unavailable [phone] Joe Devi MD Unavailable [phone] Encounter Details Date Type Department Care Team (Late st Contact Info) Description 07/19/2024 Population Health Risk Score [facility] (C3) Department 75 [facility] 7 [place] [phone] Provider, Population Health Generic Social History Tobacco [...] Description 08/13/2024 9:45 AM EDT Office Visit [facility] [address] [place] [address] 08/22/2024 1:15 PM EDT Office Visit [facility] [address] [place] [address] Katrin Santoyo MD [address] [place] [address] documented as of this encounter Goals Goal [...] documented as of this encounter Care Teams Photographer Relationship Specialty Start Date End Date Katrin Santoyo MD [address] [place] [address] PCP - General Internal Medicine 12/13/22 Edison Vieira MD [address] [place] [address] Pulmonary Disease 04/07/24 Joe Devi MD [address] 3rd [place] [address] Gastroenterology 04/07/24 Carito Roche DNP [address], [address] [place] [address] Nephrology 04/07/24 [employer] 04/11/24 documented as of this encounter
--- OUTSIDE RECORDS SUMMARY | 2024-07-24 14:20 | XMS_ITS | Encounter Summary ---
Author Organization [facility] Address [address] [place] [address] Care Team Providers Care Entry Level Software Developer Name Role Phone Deep Pruitt JOHN Primary Care Provider Reason for Visit * Reason Comments Medication Refill Encounter Details Date Type Department Care Team (Late st Contact Info) Description 05/06/2021 Refill [facility] Podiatry at [address] [place] [address] [phone] Arben Fountain, NOLVIA [address] [place] [address] Medication Refill Social History Tobacco Use [...] Date Recorded PHQ-2 Total Score 0 04/21/2021 [facility] - Occupational Stress Questionnaire [...] of this encounter Care Teams Entry Level Software Developer Relationship Specialty Start Date End Date Deep Pruitt APRN PCP - General 05/22/19 documented as of this encounter
--- OUTSIDE RECORDS SUMMARY | 2024-07-24 14:20 | XMS_ITS | Encounter Summary ---
Author Organization [employer] Address [address] [facility] [address] 7t [place] [address] Care Team Providers Care Sleeve Ironer Name Role Phone Katrin Santoyo MD Primary Care Pro vider Edison Vieira MD Unavailable [phone] Joe Devi MD Unavailable [phone] Reason for Visit * Reason Comments Med Refill Encounter Details Date Type Department Care Team ([facility] st Contact Info) Description 02/11/2024 Refill [facility] MEDICINE [address] [place] [address] Moriah Herbert FNP [address] [place] [address] Chronic radicular lumbar pain Social History Tobacco [...] Description 08/13/2024 9:45 AM EDT Office Visit [facility] MEDICINE [address] [place] [address] 08/22/2024 1:15 PM EDT Office Visit [facility] MEDICINE [address] [place] [address] Katrin Santoyo MD [address] [place] [address] documented as of this encounter Goals Goal [...] documented as of this encounter Care Teams Sleeve Ironer Relationship Specialty Start Date End Date Katrin Santoyo MD [address] [place] [address] PCP - General Internal Medicine 12/13/22 Edison Vieira MD [address] [place] [address] Pulmonary Disease 04/07/24 Joe Devi MD [address] [facility] 3rd [place] [address] Gastroenterology 04/07/24 Carito Roche DNP [address] [facility], [address] [place] [address] Nephrology 04/07/24 [email or web address] 04/11/24 documented as of this encounter
--- OUTSIDE RECORDS SUMMARY | 2024-07-24 14:20 | XMS_ITS | Encounter Summary ---
Author Organization [facility] Address [address] [place] [address] Care Team Providers Care Costing Analyst Name Role Phone Deep Pruitt APRN Primary Care Provider Reason for Visit * Reason Comments Medication Refill Encounter Details Date Type Department Care Team ([facility] st Contact Info) Description 07/29/2020 Refill [facility] [address] [place], [place] [phone] Deep Pruitt, JOHN [address] [place] [address] Medication Refill Social History Tobacco Use [...] Answer Date Recorded PHQ-2 Score 2 07/07/2020 [facility] of Occupat ional [facility] - Occupational Stress Questionnaire Answer [...] documented as of this encounter Care Teams Costing Analyst Relationship Specialty Start Date End Date Deep Pruitt APRN PCP - General 05/22/19 documented as of this encounter
--- OUTSIDE RECORDS SUMMARY | 2024-07-24 14:20 | XMS_ITS | Encounter Summary ---
Author Organization [facility] Address [address] [place] [address] Care Team Providers Care Brake Drum Molder Name Role Phone Deep Pruitt APRN Primary Care Provider Encounter Details Date Type Department Care Team (Late st Contact Info) Description 06/11/2021 Documentation [facility] [address] [facility], 2nd floor [facility], [address] [place], [place] [phone] Isha Brown APRN [address] [place] [address] Social History Tobacco Use Types [...] Date Recorded PHQ-2 Total Score 3 05/31/2021 [facility] of Occupat ional Health - [...] as of this encounter Care Teams Brake Drum Molder Relationship Specialty Start Date End Date Deep Pruitt APRN PCP - General 05/22/19 documented as of this encounter
--- OUTSIDE RECORDS SUMMARY | 2024-07-24 14:20 | XMS_ITS | Encounter Summary ---
Author Organization [facility] Address [address] [place] [address] Care Team Providers Care Job Captain Name Role Phone Deep Pruitt APRN Primary Care Provider Reason for Visit * Reason Comments Other Encounter Details Date Type Department Care Team ([facility] Contact Info) Description 05/19/2020 Telephone [facility] [address] [place] [address] Deep Pruitt APRN [address] [place] [address] Other Social History Tobacco Use [...] Answer Date Recorded PHQ-2 Score 0 03/13/2020 [facility] of Occupat ional Health [...] to his gout, call back number is [phone] documented in this encounter Plan of Treatment [...] documented as of this encounter Care Teams Job Captain Relationship Specialty Start Date End Date Deep Pruitt APRN PCP - General 05/22/19 documented as of this encounter
--- OUTSIDE RECORDS SUMMARY | 2024-07-24 14:22 | XMS_ITS | Encounter Summary ---
Author Organization [facility] Address [address] [place] [address] Care Team Providers Care Snailer Name Role Phone SonalDeep Niko LOPEZ Primary Care Provider Reason for Visit * Reason Comments Medication Refill Encounter Details Date Type Department Care Team (Late st Contact Info) Description 04/07/2021 Refill [facility] Nutrition at [address] [address] Zena Hines PA [address] [place] [phone] Medication Refill Social History Tobacco Use [...] Score 1 03/24/2021 [facility] of Occupat ional Health [...] seeing Zena Hines for DM management at [facility]. Thanks, Katrin documented in this encounter [...] documented as of this encounter Care Teams Snailer Relationship Specialty Start Date End Date Deep Pruitt APRN PCP - General 05/22/19 documented as of this encounter
--- OUTSIDE RECORDS SUMMARY | 2024-07-24 14:22 | XMS_ITS | Encounter Summary ---
Author Organization [facility] Address [address] [place] [address] Care Team Providers Care Sex Crimes Detective Name Role Phone Deep Pruitt APRN Primary Care Provider Reason for Visit * Reason Comments Medication Refill Encounter Details Date Type Department Care Team ([facility] st Contact Info) Description 03/20/2021 Refill [facility] [address] [place] [address] Deep Pruitt APRN [address] [place] [phone] Medication Refill Social History Tobacco Use [...] Date Recorded PHQ-2 Total Score 1 03/24/2021 [facility] of Occupat ional Health [...] documented as of this encounter Care Teams Sex Crimes Detective Relationship Specialty Start Date End Date Deep Pruitt APRN PCP - General 05/22/19 documented as of this encounter
--- OUTSIDE RECORDS SUMMARY | 2024-07-24 14:22 | XMS_ITS | Encounter Summary ---
Author Organization [facility] [employer] [facility] Address [address] [place] [address] Care Team Providers Care Gamma Facilities Operator Name Role Phone Deep Pruitt APRN Primary Care Provider [phone] Reason for Visit * Reason Onset Date Comments Medication Refill 11/19/2021 Encounter Details Date Type Department Care Team (Late st Contact Info) Description 11/19/2021 Refill [facility] [address] [facility] [address] [facility] 2nd [place] [address] Yue Dominguez APRN [address] [place] [phone] Medication Refill Social History Tobacco Use Types [...] Date Recorded PHQ-2 Total Score 0 11/17/2021 [facility] of Occupat ional Health [...] documented as of this encounter Care Teams Gamma Facilities Operator Relationship Specialty Start Date End Date Deep Pruitt APRN PCP - General 05/22/19 documented as of this encounter
--- OUTSIDE RECORDS SUMMARY | 2024-07-24 14:22 | XMS_ITS | Encounter Summary ---
Author Organization [facility] Address [address] [place] [address] Care Team Providers Care Argon Tester Name Role Phone Deep Pruitt APRN Primary Care Provider Reason for Visit * Reason Comments Medication Problem Encounter Details Date Type Department Care Team ([facility] st Contact Info) Description 12/21/2021 Refill [facility] [address] [place] [address] Deep Pruitt APRN [address] [place] [address] Medication Problem Social History Tobacco [...] Date Recorded PHQ-2 Total Score 4 12/20/2021 [facility] of Occupat ional Health [...] updated information the water pill. Call back [phone] * Telephone Encounter - Sarah Newman - 12/21/2021 1:05 PM EDT Best contact: [phone] Patient Sissy called and stated that she contacted [facility] on and they informed that the [...] documented as of this encounter Care Teams Argon Tester Relationship Specialty Start Date End Date Deep Pruitt APRN PCP - General 05/22/19 documented as of this encounter
--- OUTSIDE RECORDS SUMMARY | 2024-07-24 14:22 | XMS_ITS | Encounter Summary ---
Author Organization [facility] Address [address] [place] [address] Care Team Providers Care Auto Engine Mechanic Name Role Phone Deep Pruitt APRN Primary Care Provider [phone] Reason for Visit * Reason Comments Advice Only Other Encounter Details Date Type Department Care Team ([facility] Contact Info) Description 12/02/2021 Telephone [facility] [address] [place] [address] Deep Pruitt APRN [address] [place] [address] Advice Only; Other Social History [...] Date Recorded PHQ-2 Total Score 0 11/17/2021 [facility] of Occupat ional Health - [...] Mira Rios - 12/02/2021 1:32 PM EDT [facility] - [address] calling in regards to med refill request for Carvedilol 25 mg and Gabapentin medications. Call back [phone] * Telephone Encounter - Leah Madera LPN - 12/02/2021 1:21 PM EDT Patient at * Telephone Encounter - Usha Kline - 12/02/2021 12:18 PM EDT Pt is having a lot of stomach pain on the left side and would like to speak with PCP or nurse. Requesting a call back. [facility] callback number [phone] [place] speaking documented in this encounter Plan of [...] as of this encounter Care Teams Auto Engine Mechanic Relationship Specialty Start Date End Date Deep Pruitt APRN PCP - General 05/22/19 documented as of this encounter
--- OUTSIDE RECORDS SUMMARY | 2024-07-24 14:22 | XMS_ITS | Encounter Summary ---
Author Organization [facility] Address [address] [place] [address] Care Team Providers Care Inventory Associate And Driver Name Role Phone Romelia Pruittian Niko LOPEZ Primary Care Provider [phone] Reason for Visit * Reason Onset Date Comments Medication Refill 11/19/2021 Encounter Details Date Type Department Care Team (Late st Contact Info) Description 11/19/2021 Refill [facility] [address] [place] [address] [phone] Carlos Eduardo Joyner MD [address] [place] [phone] Medication Refill Social History Tobacco Use [...] Score 0 11/17/2021 [facility] - Occupational Stress Questionnaire Answer Date [...] documented as of this encounter Care Teams Inventory Associate And Driver Relationship Specialty Start Date End Date Deep Pruitt APRN PCP - General 05/22/19 documented as of this encounter
--- OUTSIDE RECORDS SUMMARY | 2024-07-24 14:22 | XMS_ITS | Encounter Summary ---
Author Organization [facility] Address [address] [place] [address] Care Team Providers Care Agent Ticketing Gate Name Role Phone Romelia Pruittian Niko LOPEZ Primary Care Provider Reason for Visit * Reason Onset Date Comments Medication Refill 11/10/2021 Encounter Details Date Type Department Care Team (Late st Contact Info) Description 11/10/2021 Refill [facility] Nutrition at [address] [facility] [address] [place] [address] [phone] Anahi Rossi, JOHN [address] [place] [phone] Medication Refill Social History Tobacco Use [...] Date Recorded PHQ-2 Total Score 0 10/12/2021 [facility] of Occupat ional [...] documented as of this encounter Care Teams Agent Ticketing Gate Relationship Specialty Start Date End Date Deep Pruitt APRN PCP - General 05/22/19 documented as of this encounter
--- OUTSIDE RECORDS SUMMARY | 2024-07-24 14:22 | XMS_ITS | Encounter Summary ---
Author Organization [facility] Address [address] [place] [address] Care Team Providers Care Elastic Assembler Name Role Phone Deep Pruitt APRN Primary Care Provider Reason for Visit * Reason Comments Medication Refill Encounter Details Date Type Department Care Team ([facility] st Contact Info) Description 12/15/2021 Refill [facility] [address] [place], [place] [phone] Deep Pruitt APRN [address] [place] [address] Medication Refill Social History Tobacco [...] Date Recorded PHQ-2 Total Score 1 12/16/2021 [facility] of Occupat ional [...] documented as of this encounter Care Teams Elastic Assembler Relationship Specialty Start Date End Date Deep Pruitt APRN PCP - General 05/22/19 documented as of this encounter
--- OUTSIDE RECORDS SUMMARY | 2024-07-24 14:22 | XMS_ITS | Encounter Summary ---
Author Organization [facility] Address [address] [place] [address] Care Team Providers Care Hospice Clinical Marketer Name Role Phone Deep Pruitt JOHN Primary Care Provider [phone] Reason for Visit * Reason Comments Medication Refill Encounter Details Date Type Department Care Team (Late st Contact Info) Description 12/03/2021 Refill [facility] Podiatry at [address] [place] [address] [phone] Arben Fountain, NOLVIA [address] [place] [address] Medication Refill Social History Tobacco Use [...] Total Score 0 11/17/2021 [facility] - Occupational Stress Questionnaire Answer [...] documented as of this encounter Care Teams Hospice Clinical Marketer Relationship Specialty Start Date End Date Deep Pruitt APRN PCP - General 05/22/19 documented as of this encounter
--- OUTSIDE RECORDS SUMMARY | 2024-07-24 14:22 | XMS_ITS | Encounter Summary ---
Author Organization [facility] Address [address] [place] [address] Care Team Providers Care Assessor Name Role Phone Deep Pruitt APRN Primary Care Provider Reason for Visit * Reason Comments Medication Refill Encounter Details Date Type Department Care Team ([facility] st Contact Info) Description 03/08/2021 Refill [facility] [address] [place], [place] [phone] Deep Pruitt APRN [address] [place] [address] Medication Refill Social History Tobacco [...] Date Recorded PHQ-2 Total Score 2 03/10/2021 [facility] - [...] documented as of this encounter Care Teams Assessor Relationship Specialty Start Date End Date Deep Pruitt APRN PCP - General 05/22/19 documented as of this encounter
--- OUTSIDE RECORDS SUMMARY | 2024-07-24 14:22 | XMS_ITS | Encounter Summary ---
Author Organization [facility] Address [address] [place] [address] Care Team Providers Care Pipeline Construction Inspector Name Role Phone Deep Pruitt APRN Primary Care Provider Reason for Visit * Reason Comments Medication Refill Encounter Details Date Type Department Care Team ([facility] st Contact Info) Description 03/10/2021 Refill [facility] [address] [place] [address] Deep Pruitt APRN [address] [place] [phone] Medication Refill Social History Tobacco Use [...] Date Recorded PHQ-2 Total Score 2 03/10/2021 [facility] [...] documented as of this encounter Care Teams Pipeline Construction Inspector Relationship Specialty Start Date End Date Deep Pruitt APRN PCP - General 05/22/19 documented as of this encounter
--- OUTSIDE RECORDS SUMMARY | 2024-07-24 14:22 | XMS_ITS | Encounter Summary ---
Author Organization [facility] Address [address] [place] [address] Care Team Providers Care Appliance Service Representative Name Role Phone Deep Pruitt APRN Primary Care Provider Reason for Visit * Reason Comments Medication Refill Encounter Details Date Type Department Care Team ([facility] st Contact Info) Description 02/25/2022 Refill [facility] [address] [place], [place] [phone] Deep Pruitt, JOHN [address] [place] [phone] Medication Refill Social History Tobacco Use [...] PHQ-2 Total Score 2 02/17/2022 [facility] - [...] as of this encounter Care Teams Appliance Service Representative Relationship Specialty Start Date End Date Deep Pruitt APRN PCP - General 05/22/19 documented as of this encounter
--- OUTSIDE RECORDS SUMMARY | 2024-07-24 14:22 | XMS_ITS | Encounter Summary ---
Author Organization [facility] Address [address] [place] [address] Care Team Providers Care Tenter Feeder Name Role Phone Deep Pruitt APRN Primary Care Provider Reason for Visit * Reason Comments Medication Refill Encounter Details Date Type Department Care Team ([facility] st Contact Info) Description 12/18/2021 Refill [facility] [address] [place], [place] [phone] Deep Pruitt APRN [address] [place] [address] Medication Refill Social History Tobacco [...] Date Recorded PHQ-2 Total Score 4 12/20/2021 [facility] [...] documented as of this encounter Care Teams Tenter Feeder Relationship Specialty Start Date End Date Deep Pruitt APRN PCP - General 05/22/19 documented as of this encounter
--- OUTSIDE RECORDS SUMMARY | 2024-07-24 14:22 | XMS_ITS | Encounter Summary ---
Author Organization [facility] Address [address] [place] [address] Care Team Providers Care Pigment Supplier Name Role Phone Romelia Pruittian Niko LOPEZ Primary Care Provider [phone] Encounter Details Date Type Department Care Team (Late st Contact Info) Description 03/18/2021 Scanned Document [facility] [address] [place] [address] External, Provider Social History Tobacco Use Types [...] Recorded PHQ-2 Total Score 2 03/10/2021 [facility]at ional [facility] [...] as of this encounter Care Teams Pigment Supplier Relationship Specialty Start Date End Date Deep Pruitt APRN PCP - General 05/22/19 documented as of this encounter
--- OUTSIDE RECORDS SUMMARY | 2024-07-24 14:22 | XMS_ITS | Encounter Summary ---
Author Organization [facility] Address [address] [place] [phone] Care Team Providers Care Repair Clerk Name Role Phone Deep Pruitt APRN Primary Care Provider Encounter Details Date Type Department Care Team (Late st Contact Info) Description 04/08/2021 Lab Requisition [facility] [address] [place] [address] Isha Brown APRN [address] [place] [address] Persons encountering health services in [...] Date Recorded PHQ-2 Total Score 1 03/24/2021 [facility] Occupational Stress [...] Date/Time Associated Diagnosis Comments BLOOD GAS, ARTERIAL ([facility]) Routine 04/08/2021 12:44 PM EST documented [...] Temperature 37.0 Celsius 04/08/2021 12:54 PM EST [facility] FIO2 21 % 04/08/2021 12:54 PM EST [facility] Blood, Arterial 04/08/2021 1 2:44 PM EST 04/08/2021 12:45 PM EST us Isha Brown BUSINESS SERVICES SPECIALIST SALES LAB BLOOD ORDERABL ES Final Result Performing Organization Address City/State/[facility] de Phone Number [facility] [address] [place] [address] documented in this encounter Visit Diagnoses Diagnosis [...] documented as of this encounter Care Teams Repair Clerk Relationship Specialty Start Date End Date Deep Pruitt APRN PCP - General 05/22/19 documented as of this encounter
--- OUTSIDE RECORDS SUMMARY | 2024-07-24 14:22 | XMS_ITS | Encounter Summary ---
Author Organization [facility] Address [address] [place] [address] Care Team Providers Care Insect Control Inspector Name Role Phone Romelia Pruittian Niko LOPEZ Primary Care Provider Encounter Details Date Type Department Care Team (Late st Contact Info) Description 11/30/2021 Scanned Document [facility] [address] [place] [address] External, Provider Social History Tobacco Use Types [...] documented as of this encounter Care Teams Insect Control Inspector Relationship Specialty Start Date End Date Deep Pruitt APRN PCP - General 05/22/19 documented as of this encounter
--- OUTSIDE RECORDS SUMMARY | 2024-07-24 14:22 | XMS_ITS | Encounter Summary ---
Author Organization [facility] Address [address] [place] [address] Care Team Providers Care Pulley Maintainer Name Role Phone Deep Pruitt APRN Primary Care Provider [phone] Reason for Visit * Reason Comments Medication Refill Encounter Details Date Type Department Care Team ([facility] st Contact Info) Description 11/17/2021 Refill [facility] [address] [place], [place] [phone] Deep Pruitt APRN [address] [place] [address] Medication Refill Social History Tobacco [...] Total Score 0 11/17/2021 [facility]at [...] documented as of this encounter Care Teams Pulley Maintainer Relationship Specialty Start Date End Date Deep Pruitt APRN PCP - General 05/22/19 documented as of this encounter
--- OUTSIDE RECORDS SUMMARY | 2024-07-24 14:23 | XMS_ITS | Encounter Summary ---
Author Organization [email or web address] Address [address] [place] [phone] Care Team Providers Care Pipe And Test Supervisor Name Role Phone Deep Pruitt APRN Primary Care Provider Reason for Visit * Reason Onset Date Comments Medication Refill 11/19/2021 Encounter Details Date Type Department Care Team (Late st Contact Info) Description 11/19/2021 Refill [facility] [address] [facility] [address] [facility] 2[address] [place] [address] Yue Dominguez APRN [address] [place] [phone] Medication Refill Social History Tobacco Use Types [...] as of this encounter Care Teams Pipe And Test Supervisor Relationship Specialty Start Date End Date Deep Pruitt APRN PCP - General 05/22/19 documented as of this encounter
--- OUTSIDE RECORDS SUMMARY | 2024-07-24 14:23 | XMS_ITS | Encounter Summary ---
Author Organization [facility] Address [address] [place] [address] Care Team Providers Care Lead Android Developer Name Role Phone Deep Pruitt APRN Primary Care Provider Reason for Visit * Reason Comments Other Advice Only Encounter Details Date Type Department Care Team ([facility] Contact Info) Description 10/20/2021 Telephone [facility] [address] [place] [address] Deep Pruitt APRN [address] [place] [address] Other; Advice Only Social History [...] Date Recorded PHQ-2 Total Score 0 10/12/2021 [facility] - [...] legs have not stops hurting. Contact number [phone] documented in this encounter Plan of Treatment Not on file documented as of this encounter Visit Diagnoses Not on filedocumented in this encounter Additional Health Concerns Assessment Noted Time PHQ-9 Depression Total Score: 0 10/13/19 22 2:23 PM EDT documented as of this encounter Care Teams Lead Android Developer Relationship Specialty Start Date End Date Deep Pruitt APRN PCP - General 05/22/19 documented as of this encounter
--- OUTSIDE RECORDS SUMMARY | 2024-07-24 14:23 | XMS_ITS | Clinical Summary ---
Author Organization [employer] Address [address] [facility] [address] [place] [address] Care Team Providers Care Cio Name Role Phone Katrin Santoyo MD Primary Care Pro vider Edison Vieira MD Unavailable [phone] Joe Devi MD Unavailable [phone] Allergies Active Allergy Reactions Criticality Noted [...] Continuous Blood Gluc Sensor (Dexcom G7 Sensor) [facility] 023 Active DULoxetine (Cymbalta) [address] [...] THE EVENING Active Blood Glucose Monitoring Suppl (GnuBIOStyle [place] Lite) w/Device kitIndications: Type 2 diabetes mellitus with diabetic nephropathy, with long-term current use of insulin ([facility]) Use to test blood sugar bid [...] feet Active ergocalciferol (Vitamin D-2) 1.25 MG (55054 UT) capsule Take 1 capsule by mouth. Every Monday and Active lidocaine (Lidoderm) 5 % patch Apply 1 patch topically Once per day. 12 hours on and 12 hours off Active SSD 1 % cream Apply 1 Application. topically Once per day. Active FreeStyle lancetsIndicati ons:Type 2 diabetes mellitus with diabetic nephropathy, with long-term current use of insulin ([facility]) 1 each by Other route before [...] tabletIndicatio ns:Acute kidney injury superimposed on CKD ([facility]) ([facility]),Prima ry hypertension Take 1 tablet (40 [...] tab TID 28 tablet 025 Active Nebulizers [facility] Use nebulizer as instructed 1 each 025 [...] PRN Indication: chronic radicular lumbar pain 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 Vieira Chest pressure 11/14/2023 [...] lesions. Secondary dental caries 10/23/2023 Fractured dental nondenominational without loss of mat erial 10/23/2023 Alkaline [...] chart review, appears as though following with [facility] with last visit/encounter May 2024. - [...] of multiple topical analgesics after discussion with [facility] Pharmacist - meds sent to [...] 2022, f/u appt 01/2023 Dental: Refer pt [facility] on 12/13/22 Moderate persistent asthma 11/07/2022 Overview (11/07/2022): -The Pt saw Pulmonology in [place] 5343705/21/2021 -stable with the use of Advair and [...] focus on improving diabetic control Discuss community nutrition educator referral at next visit F/u [...] (04/07/2024 2:05 PM EST): - Following with [facility] - CASSIDY Roche - Plan [...] disordered breathing. RECOMMENDATIONS / PLAN : -Current [employer] recommendations for treatment of [...] S on 17/10 cm. - Following with [facility] Pulmonology - Dr. Vieira - Encouraged to follow up with specialist regarding DME order and new sleep study PRN Chronic post-traumatic stress disorder (PTSD) Need for home health care 01/01/2019 Overview (11/07/2022): Pt is still in the process of establishing a Visiting Nurse for home care to help manage his multiple medications Hyperlipidemia associated wi th type 2 diabetes mellitus ([facility]/HCC) 12/10/2018 Overview (11/07/2022): - LDL 90 01/25/2021 [...] told him that it is not a alf med. He will fu w PCP next [...] told him that it is not a alf med. He will fu w PCP next week. Use heat to affected area Diabetes mellitus with diabetic nephropathy 12/09/2022 12/13/2022 History of colonoscopy 12/09/202201/23 Overview (12/09/2022): information and pathology of colonospcy in [facility] 09-09-2020 note Hyperlipidemia due to type 2 [...] Encounters Date Type Department Care Team Description 07/23/2024 Orders Only [facility] External Provider, [facility] 07/19/2024 Population Health Risk Score Community Care [facility] (C3) Department [address] [phone] Provider, Population Health Generic 07/17/2024 5:00 PM EDT Office Visit [facility] WALK-IN CENTER [address] [place] [address] Cleo Reynoso, HAND PAINT MIXER Diarrhea, unspecified type (Primary Dx) 07/16/2024 9:45 AM EDT Office Visit [facility] MEDICINE [address] [place] [phone] Moriah Herbert FNP Chronic radicular lumbar pain (Primary Dx); Long-term current use of opiate analgesic; Gout involving toe of left foot, unspecified cause, unspecified chronicity; Type 2 diabetes mellitus with stage 3 chronic kidney disease, with long-term current use of insulin, unspecified whether stage 3a or 3b CKD ([facility]) 07/16/2024 Travel 07/10/2024 2:00 PM EST Office Visit [facility] [address] [place] [phone] Katrin Leroy MD Lipoma of other specified sites (Primary Dx); Acute gout of left foot, unspecified cause; Primary hypertension; Burn 07/10/2024 Refill [facility] [address] [place] [phone] June Jarvis ANP Gout due to renal impairment, unspecified chronicity, unspecified site 07/03/2024 Travel 07/03/2024 Telephone [facility] CHC MED & PEDS [address] [place] [address] Gabriela Rea RN r/s chronic pain group 07/03/2024 Refill [facility] W[facility] [address] [place] [phone] Katrin Santoyo MD 07/02/2024 Travel 2024 11:20 AM EST Office Visit [facility] [address] [place] [phone] Dhara Cardenas MD Acute bronchitis, unspecified organism (Primary Dx); Influenza A 2024 Telephone [facility] MEDICINE [address] [place] [address] [phone] Katrin Santoyo MD Med Refill 2024 Refill [facility] MEDICINE [address] [place] [phone] Katrin Santoyo MD 06/25/2024 Refill [facility] W[facility] [address] [place] [phone] Katrin Santoyo MD 06/21/2024 Refill [facility] MED [facility] PEDS [address] [place] [address] Katrin Santoyo MD Moderate persistent asthma without complication 06/11/2024 Telephone [facility] MEDICINE [address] [place] [address] Emili Cordero, CASIE 06/10/2024 Telephone [facility] MEDICINE [address] [place] [address] Shirin Albarran MD No Show 06/06/2024 Telephone [facility] MEDICINE [address] [place] [address] Katrin Santoyo MD FYI 06/06/2024 Telephone [facility] MEDICINE [address] [place] [phone] Katrin Santoyo MD Nurse Triage 06/05/2024 Telephone [facility] MED & PEDS [address] [place] [address] Gabriela Rea, CASIE Error (VOID this visit) 05/30/2024 Telephone [facility] MEDICINE [address] [place] [phone] Katrin Santoyo MD Nurse Triage 05/22/2024 Telephone [facility] MEDICINE [address] [place] [address] Katrin Santoyo MD FYI 05/17/2024 Refill [facility] MEDICINE [address] [place] [phone] Moriah Herbert FNP Chronic radicular lumbar pain 05/17/2024 Refill [facility] MEDICINE [address] [place] [address] Shanna Henao MD Chronic radicular lumbar pain 05/12/2024 Refill [facility] [address] [place] [address] Katrin Santoyo MD 04/30/2024 Telephone [facility] MEDICINE [address] [place] [phone] Katrin Santoyo MD Nurse Triage 04/26/2024 Refill [facility] MEDICINE [address] [place] [address] Katrin Santoyo MD from Last 3 Months [...] Description 08/13/2024 9:45 AM EDT Office Visit [facility] MEDICINE [address] [place] [phone] 08/22/2024 1:15 PM EDT Office Visit [facility] MEDICINE [address] [place] [phone] Katrin Santoyo MD [address] [place] [phone] Health Maintenance Due Date Last Done Comments [...] Name Priority Date/Time Associated Diagnosis Comments US ABDOMEN COMPLETE WITH ELASTOGRAPHY Routine 07/23/2024 8:45 AM EDT POCT GLUCOSE Routine 07/19/2024 9:19 AM EDT [...] AM EDT Health care maintenance HIV ANTIBODY/ANTIGEN (PA DPH) Routine 12/06/2022 10:21 AM EDT PROPHYLAXIS - ADULT Routine 09/04/2018 1 2:00 AM EDT INTRAORAL - COMPLETE SERIES OF RADIOGRAPHIC IMAGES Routine 08/15/2018 12:00 AM EDT COMPREHENSIVE ORAL EVALUATION - NEW OR ESTABLISHED PATIENT Routine 08/15/2018 12:00 AM EDT from Last 3 Months or Most Recently Relevant to Health Maintenance Results * US Abdomen Comp w elastography (07/23/2024 8:45 AM EDT) Anatomical Region Laterality Modality Abdomen Ultrasound 07/23/2024 8:45 AM EDT Narrative 07/23/2024 9:23 AM EDT ? [facility] ?[address] ?[place] [address] ? Ultrasound Report ? Signed ? Patient: Darrel Hagan ?MR#: [id number] ?? [id number] ? : 1970 ?Acct:[id number] ? Age/Sex: 54 / M ?ADM Date: 07/23/24 ? Loc: HO.US ? Attending Dr: Chuy Mcmanus MD ? Ordering Physician: Chuy Mcmanus MD ?? Date of Service: 07/23/24 ?? Procedure(s): US abdomen comp w elastography ?? Accession Number(s): [id number] ? cc: Katrin Santoyo MD; Chuy Mcmanus MD ? EXAMINATION: ??US ABDOMEN COMPLETE WITH LIVER ELASTOGRAPHY ? HISTORY: I10 - Essential (primary) hypertension ? TECHNIQUE: Real-time grayscale ultrasound imaging of the abdomen was ?? performed and images were reviewed. ? COMPARISON: Comparison is made with the prior examination dated ?? 07/10/2023. ? FINDINGS: ?? Liver: ??The right lobe of the liver measures 17.5 cm in size. The left ?? lobe of the liver measures 14.6 cm in size. The liver demonstrates ?? normal homogeneous echotexture. ??No focal mass or intrahepatic biliary ?? ductal dilatation is identified. ??There is normal hepatopedal flow in ?? the portal vein. ? Ultrasound elastography of the liver was performed with 10 separate ?? measurements of the liver parenchyma with the patient in the supine ?? position. ??Measurements were obtained approximately 2 cm below ?? Lavonne's capsule and perpendicular to the capsule. ??Images are of ?? satisfactory quality. ? The median shear wave velocity is 1.04 m/s. ?? The interquartile range/median (IQR/median) is 0.18. ? Gallbladder and biliary tree: There is an 8 mm calculus in the ?? gallbladder neck. There is no wall thickening or pericholecystic fluid. ?? There is no sonographic Esparza sign. ??The common bile duct is normal ?? in caliber measuring 6 mm. ? Kidneys: ??The right kidney measures 14.4 cm in length. The left kidney ?? measures 14.1 cm in length. ??The kidneys are unremarkable, without ?? evidence of masses, hydronephrosis, or calculi. ? Pancreas: The pancreatic head, neck, and body are unremarkable. The ?? pancreatic tail is obscured by bowel gas. ? Spleen: The spleen is normal in size and contour, measuring 10.8 cm in ?? length. ? Abdominal aorta and inferior vena cava: The visualized portions of the ?? abdominal aorta and inferior vena cava are normal in caliber. ? There is no free fluid in the abdomen. ? US/US abdomen comp w elastography ?? IMPRESSION: ? Hepatomegaly. Cholelithiasis without evidence of acute cholecystitis. ? The median shear wave velocity in the liver is 1.04 m/s, corresponding ?? to a median liver stiffness of 3.2 kPa. ??The IQR/median value is 0.18. ? This is indicative of a poor quality data set, and the estimated liver ?? stiffness may be unreliable. ?? Findings are indicative of a normal elastography value with a low ?? likelihood of severe fibrosis or cirrhosis. ? REFERENCE: ?? Society of Radiologists in Ultrasound Liver Stiffness Thresholds (2019): ? LIVER STIFFNESS THRESHOLDS: ?? *Shear wave velocity less than 1.3 m/s (Liver Stiffness equal or less ?? than 5 kPa): ??High probability of being normal. ?? *Shear wave velocity less than 1.7 m/s (Liver Stiffness less than 9 ?? kPa): ??In the absence of other known clinical signs, rules out ?? compensated advanced chronic liver disease. ?? *Shear wave velocity between 1.7-2.1 m/s (Liver Stiffness 9-13 kPa): ? Suggestive of compensated advanced chronic liver disease but need ?? further test for confirmation. ?? *Shear wave velocity between 2.1-2.4 m/s (Liver Stiffness 13-17 kPa): ? Rules in compensated advanced chronic liver disease. ?? *Shear wave velocity ??greater than 2.4 m/s (Liver Stiffness over 17 ?? kPa): ??Suggestive of clinically significant portal hypertension. ? QUALITY OF DATA SET: ?? *IQR/Median value equal or less than 0.15 implies a quality data set. ?? *IQR/Median value over 0.15 implies a poor quality data set. ? SIGNIFICANT CHANGE FROM PRIOR EXAM: ?? Significant change if liver stiffness measurement is 10% or greater ?? from prior exam. ? OTHER CONSIDERATIONS: ?? The stage of liver fibrosis may be overestimated in the setting of ?? acute hepatitis, liver inflammation, elevated liver function tests, ?? hepatic vascular congestion, obstructive cholestasis, non-fasting ?? state, and infiltrative diseases such as amyloidosis and lymphoma. ??In ?? some patients with NAFLD, the liver stiffness thresholds for ?? compensated advanced chronic liver disease may be lower. ??In causes ?? other than viral hepatitis and NAFLD, liver stiffness thresholds are ?? not well established. ? Electronically signed by: ??Juvenal Caldera MD ??07/23/2024 09:20 AM EDT ?? RP ? Dictated By: ?Juvenal Caldera MD ? Signed By: ?<Electronically signed by Juvenal Caldera MD in OV> ?07/23/24 0920 ? DD/ 0845 ? TD/TT: 07/23/24 0904 ? [employer]: ? Procedure Note Pato, Image - 07/23/[address] [address] Ultrasound Report Signed Patient: Rayo Hagan#: [id number] : 1970Acct:[id number] Age/Sex: 54 / MADM Date: 07/23/24 Loc: HO.US Attending Dr: Chuy Mcmanus MD Ordering Physician: Chuy Mcmanus MD Date of Service: 07/23/24 Procedure(s): US abdomen comp w elastography Accession Number(s): [id number] cc: Katrin Santoyo MD; Chuy Mcmanus MD EXAMINATION: US ABDOMEN COMPLETE WITH LIVER ELASTOGRAPHY HISTORY: I10 - Essential (primary) hypertension TECHNIQUE: Real-time grayscale ultrasound imaging of the abdomen was performed and images were reviewed. COMPARISON: Comparison is made with the prior examination dated 07/10/2023. FINDINGS: Liver: The right lobe of the liver measures 17.5 cm in size. The left lobe of the liver measures 14.6 cm in size. The liver demonstrates normal homogeneous echotexture. No focal mass or intrahepatic biliary ductal dilatation is identified. There is normal hepatopedal flow in the portal vein. Ultrasound elastography of the liver was performed with 10 separate measurements of the liver parenchyma with the patient in the supine position. Measurements were obtained approximately 2 cm below Lavonne's capsule and perpendicular to the capsule. Images are of satisfactory quality. The median shear wave velocity is 1.04 m/s. The interquartile range/median (IQR/median) is 0.18. Gallbladder and biliary tree: There is an 8 mm calculus in the gallbladder neck. There is no wall thickening or pericholecystic fluid. There is no sonographic Esparza sign. The common bile duct is normal in caliber measuring 6 mm. Kidneys: The right kidney measures 14.4 cm in length. The left kidney measures 14.1 cm in length. The kidneys are unremarkable, without evidence of masses, hydronephrosis, or calculi. Pancreas: The pancreatic head, neck, and body are unremarkable. The pancreatic tail is obscured by bowel gas. Spleen: The spleen is normal in size and contour, measuring 10.8 cm in length. Abdominal aorta and inferior vena cava: The visualized portions of the abdominal aorta and inferior vena cava are normal in caliber. There is no free fluid in the abdomen. US/US abdomen comp w elastography IMPRESSION: Hepatomegaly. Cholelithiasis without evidence of acute cholecystitis. The median shear wave velocity in the liver is 1.04 m/s, corresponding to a median liver stiffness of 3.2 kPa. The IQR/median value is 0.18. This is indicative of a poor quality data set, and the estimated liver stiffness may be unreliable. Findings are indicative of a normal elastography value with a low likelihood of severe fibrosis or cirrhosis. REFERENCE: Society of Radiologists in Ultrasound Liver Stiffness Thresholds (2020): LIVER STIFFNESS THRESHOLDS: *Shear wave velocity less than 1.3 m/s (Liver Stiffness equal or less than 5 kPa): High probability of being normal. *Shear wave velocity less than 1.7 m/s (Liver Stiffness less than 9 kPa): In the absence of other known clinical signs, rules out compensated advanced chronic liver disease. *Shear wave velocity between 1.7-2.1 m/s (Liver Stiffness 9-13 kPa): Suggestive of compensated advanced chronic liver disease but need further test for confirmation. *Shear wave velocity between 2.1-2.4 m/s (Liver Stiffness 13-17 kPa): Rules in compensated advanced chronic liver disease. *Shear wave velocity greater than 2.4 m/s (Liver Stiffness over 17 kPa): Suggestive of clinically significant portal hypertension. QUALITY OF DATA SET: *IQR/Median value equal or less than 0.15 implies a quality data set. *IQR/Median value over 0.15 implies a poor quality data set. SIGNIFICANT CHANGE FROM PRIOR EXAM: Significant change if liver stiffness measurement is 10% or greater from prior exam. OTHER CONSIDERATIONS: The stage of liver fibrosis may be overestimated in the setting of acute hepatitis, liver inflammation, elevated liver function tests, hepatic vascular congestion, obstructive cholestasis, non-fasting state, and infiltrative diseases such as amyloidosis and lymphoma. In some patients with NAFLD, the liver stiffness thresholds for compensated advanced chronic liver disease may be lower. In causes other than viral hepatitis and NAFLD, liver stiffness thresholds are not well established. Electronically signed by: Juvenal Caldera MD 07/23/2024 09:20 AM EDT Dictated By: Juvenal Caldera MD Signed By: <Electronically signed by Juvenal Caldera MD in OV> 07/23/24 0920 DD/ 0845 TD/TT: 07/23/24 0904 Salesperson [employer]: [facility] External Provider IMG US PROCEDURES Final Result * POCT Glucose (07/19/2024 9:19 AM EDT) Only the most recent of2 resultswithin the time period is included. Glucose Blood, POC 105 60 - 200 mg/dL Comment:random QC Media Lot # [id number] Lot# Expiration Date Blood Capillary blood specimen / Unknown 07/19/2024 9:19 AM EDT Result [facility] Moriah LEACH POINT OF CARE TEST ENTER/EDIT ORDERABLES Final Result * POCT [id number] Urine Drug Screen (07/16/2024 11:31 AM EDT) Urine Urine specimen obtained by clean catch procedure / Unknown 07/16/2024 11:31 AM EDT Narrative Emili Cordero RN - 07/16/2024 11:31 AM EDT UTOX cup Lot#[id number] Exp. 12/25/25 Internal Pass Control UTOX Negative for all substances. Moriah LEACH POINT OF CARE TEST ENTER/EDIT ORDERABLES Final Result * (ABNORMAL) Influenza A (ID NOW Rapid Molecular) (2024 11:09 AM EST) Influenza A Positive( A) Negative, Indeterminate [facility] Swab 2024 11:0 9 AM EST Dhara Cardenas MD POINT OF CARE TEST ENTER/EDIT OR DERABLES Final Result [facility] [address] [place] [phone] * Influenza B (ID NOW Rapid Molecular) (2024 11:08 AM EST) Influenza B Negative Negative, Indeterminate [facility] Swab 2024 11:0 8 AM EST Dhara Cardenas MD POINT OF CARE TEST ENTER/EDIT OR DERABLES Final Result Performing Organization Address [facility] Co de Phone Number [facility] [address] [place] [phone] * POCT Rapid COVID Ag (2024 11:08 AM EST) Pathologist [facility] Rapid COVID Ag Negative Swab 2024 11:0 8 AM EST Dhara Cardenas MD POINT OF CARE TEST ENTER/EDIT OR DERABLES Final Result * (ABNORMAL) Hemoglobin A1c (03/27/2024 3:40 PM EST) Pathologist [facility] Hemoglobin A1c 12.5(H) <6.0 % [facility] Comment:Hemoglobin A1C Refer ence Range Adults: 4.8 - 6.0 % Non diabetic: < 6.0 % Goal: < 7.0 %Additional Action Suggested: > 8.0 %Note: Hemoglobin A1c results are invalid for patients with abnormal amounts of HbF. Blood transfusions may impact the HbA1c concentration in the patient sample. Estimated Average Glucose 312 mg/dL [facility] Comment:eAG = Estimated ave rage glucose which is %A1C expressed asaverage glucose, using the formula of the N1E-FmoinroEsnxejw Glucose study (ADAG), Diabetes Care, Vol.31,#8,Dec. 2007 03/27/2024 3:40 PM EST 03/27/2024 6:33 PM EST Generic External Data Provider LAB BLOOD ORDERAB LES Final Result Performing Organization Address City/[facility]/ZIP Co de Phone Number [facility] [address] [place] [phone] * (ABNORMAL) Lipid Panel, Standard (09/19/2023 1:43 PM EDT) Triglycerides 316(H) <150 mg/dL [facility] Comment:Desirable Triglyceri de: less than 150 mg/dLBorderline High Triglyceride 150-199 mg/dLHigh Triglyceride: 200-499 mg/dLVery High Triglyceride: greater than or equal to 5OO mg/dL Cholesterol 164 <200 mg/dL [facility] Comment:Desirable Cholestero l: less than 200 mg/dLBorderline High Cholesterol: 200-239 mg/dLHigh Cholesterol: greater than 239 mg/dL LDL Cholesterol Calculated 60 <100 mg/dL [facility] Comment:Desirable LDL: less than 100 mg/dLNear Optimal/Above Optimal LDL: 110- 129 mg/dLBorderline High LDL: 130-159 mg/dLHigh LDL: 160-189 mg/dLVery High LDL: greater than or equal to 190 mg/dL HDL Cholesterol 41 >40 mg/dL [facility] Comment:Desirable HDL: great er than 40 mg/dL Note: This HDL assay may give artificially low results in patients with liver disease. Blood Venous blood specimen / Unknown 09/19/2023 1:43 PM EDT 09/19/2023 3:53 PM EDT us Katrin López MD LAB BLOOD ORDERAB LES Final Result [facility] [address] [place] [phone] [phone] * HIV Ab/Ag (LOU HYMNA) (12/06/2022 10:21 AM EDT) HIV AB/AG Nonreactive Nonreactive [facility] Comment:HIV-1 p24 Ag and/or HIV-1/HIV-2 Ab not detected.A test result that is nonreactive does not exclude thepossibility of exposure to or infection with HIV-1 and/orHIV-2. Nonreactive results in this assay for individualswith prior exposure to HIV-1 and/or HIV-2 may be due toantigen and antibody levels that are below the limit ofdetection of this assay.The [employer] HIV Ag/Ab Combo assay result andsupplemental assay results should be interpreted inconjunction with the patient's clinical presentation,history and other laboratory results. If the results areinconsistent with clinical evidence, additional testing issuggested to confirm the result. 12/06/2022 10:2 1 AM EDT 12/06/2022 11:[address] [facility] LAB BLOOD ORDERABLES Final Result Performing Organization Address [facility]/ZIP Co de Phone Number [facility] [address] [place] [phone] * Hepatitis Panel, General (12/06/2022 10:21 AM EDT) Hepatitis A IgM Nonreactive Nonreactive [facility] Comment:IgM antibodies to VILLANUEVA V not detected; does not exclude earlyacute or recovered HAV infection. ~Hepatitis B Surface Antibody REACTIVE Nonreactive [facility] Comment:REACTIVE: > 11.99 mI U/mL Hepatitis B Core Antibody Nonreactive Nonreactive [facility] Hepatitis C Antibody Nonreactive Nonreactive [facility] [facility] Comment:Antibodies to HCV no t detected; does not exclude early acuteHCV infection. Hepatitis B Surface Ag Negative Negative [facility] Blood 12/06/2022 10:2 1 AM EDT 12/06/2022 11:17 AM EDT Elise Castro [facility] LAB BLOOD ORDERABLES Final Result Performing Organization Address City/[facility]/ZIP Co de Phone Number [facility] [address] [place] [phone] from Last 3 Months or Most Recently Relevant to Health Maintenance Insurance [place] [facility] MEDICAID STAND ADULT Care Teams Cio Relationship Specialty Start Date End Date Katrin Santoyo MD [address] [place] [address] PCP - General Internal Medicine 12/13/22 Edison Vieira MD [address] [place] [address] Pulmonary Disease 04/07/24 Joe Devi MD [address] 3rd [place] [address] Gastroenterology 04/07/24 Carito Roche DNP [address] [facility], [address] [place] [address] Nephrology 04/07/24 [employer] 04/11/24
--- OUTSIDE RECORDS SUMMARY | 2024-07-24 14:23 | XMS_ITS | Encounter Summary ---
Author Organization [facility] Address [address] [place] [address] Care Team Providers Care Zoology Technical Officer Name Role Phone Deep Pruitt JOHN Primary Care Provider Encounter Details Date Type Department Care Team (Late st Contact Info) Description 01/17/2019 Scanned Document [facility] [address] [place], [place] [address] External, Provider Social History Tobacco Use Types [...] documented as of this encounter Care Teams Zoology Technical Officer Relationship Specialty Start Date End Date Deep Pruitt APRN PCP - General 05/22/19 documented as of this encounter
--- OUTSIDE RECORDS SUMMARY | 2024-07-24 14:23 | XMS_ITS | Encounter Summary ---
Author Organization [facility] Address [address] [facility] 7t [place] [address] Care Team Providers Care Motor Builder Assembler Name Role Phone Elise Stanford Primary Care Provider [phone] Katrin Santoyo MD Primary Care Pro vider Edison Vieira MD Unavailable [phone] Joe Devi MD Unavailable [phone] Reason for Visit * Reason Onset Date Comments Referral 11/24/2022 Podiatry Encounter Details Date Type Department Care Team (Late st Contact Info) Description 11/24/2022 Telephone [facility] [address] [place] [address] Elise Stanford FNP [address] [place] [address] Dept [place] [address] Referral (Podiatry/) Social History Tobacco Use Types [...] Anne Ocasio - 11/29/2022 9:46 AM EDT [employer] re-faxed referral to Dr. Smith's office. [employer] called Dr. Smith's office and confirmed that referral was received. [employer] attempted to call patient twice to infirm that he may call to schedule his appt but did not answer and voicemail could not be left due to pt not having voicemail setup. Dr. Smith [address] [place] [address] FAX [phone] * Telephone Encounter - Elizabeth Melo - 11/24/2022 9:51 AM EDT Tc from patient requesting status on podiatry referral. [employer] provided address and phone number and patient stated they told him they don't have a referral or any notes for referral. Patient states he let them know of referral letter and they stated they still need notes to be seen. documented in this encounter Plan of Treatment Upcoming Encounters Date Type Department Care Team ([facility] st Contact Info) Description 08/13/2024 9:45 AM EDT Office Visit [address] [address] 08/22/2024 1:15 PM EDT Office Visit [address] [address] Katrin Santoyo MD [address] [place] [address] documented as of this encounter Visit Diagnoses Not on filedocumented in this encounter Additional Health Concerns Assessment Noted Time PHQ-9 Depression Total Score: 24 11/18/ 023 2:05 PM EDT documented as of this encounter Care Teams Motor Builder Assembler Relationship Specialty Start Date End Date Elise Stanford FNP PCP - General Family Medicine 11/24/22 12/12/22 Katrin Santoyo MD [address] [place] [address] PCP - General Internal Medicine 12/13/22 Edison Vieira MD [address] [place] [address] Pulmonary Disease 04/07/24 Joe Devi MD 11 [facility] 3rd [place] [address] Gastroenterology 04/07/24 Carito Roche DNP 10 [facility], [address] [place] [address] Nephrology 04/07/24 [employer] 04/11/24 documented as of this encounter
--- OUTSIDE RECORDS SUMMARY | 2024-07-24 14:23 | XMS_ITS | Encounter Summary ---
Author Organization [facility] Address [address] [place] [address] Care Team Providers Care Fork Truck Operator Name Role Phone LancasterDeep medina Niko LOPEZ Primary Care Provider [phone] Encounter Details Date Type Department Care Team (Late st Contact Info) Description 02/19/2020 Scanned Document [facility] [address] [place], [place] [phone] Arben Fountain, NOLVIA [address] [place] [address] Social History Tobacco Use Types [...] Answer Date Recorded PHQ-2 Score 2 10/02/2019 [facility] [place] of Occupat ional Health - Occupational [...] documented as of this encounter Care Teams Fork Truck Operator Relationship Specialty Start Date End Date Deep Pruitt APRN PCP - General 05/22/19 documented as of this encounter
--- OUTSIDE RECORDS SUMMARY | 2024-07-24 14:23 | XMS_ITS | Encounter Summary ---
Author Organization [facility] Address [address] [place] [address] Care Team Providers Care Director Of Supply Chain Name Role Phone Deep Pruitt JOHN Primary Care Provider Encounter Details Date Type Department Care Team (Late st Contact Info) Description 02/20/2017 Scanned Document [facility] [address] [place] [address] Francisco Veloz PA [address] [place] [phone] Social History Tobacco Use Types Packs/Day [...] of this encounter Care Teams Director Of Supply Chain Relationship Specialty Start Date End Date Deep Pruitt APRN PCP - General 05/22/19 documented as of this encounter
--- OUTSIDE RECORDS SUMMARY | 2024-07-24 14:23 | XMS_ITS | Encounter Summary ---
Author Organization [facility] Address [address] [place] [address] Care Team Providers Care Office Machine Embossograph Operator Name Role Phone Deep Pruitt APRN Primary Care Provider Reason for Visit * Reason Comments Medication Refill Encounter Details Date Type Department Care Team ([facility] st Contact Info) Description 01/29/2021 Refill [facility] [address] [place], [place] [phone] Deep Pruitt APRN [address] [place] [address] Medication Refill Social History Tobacco [...] Date Recorded PHQ-2 Total Score 6 01/21/2021 [facility] of Occupat ional Health [...] as of this encounter Care Teams Office Machine Embossograph Operator Relationship Specialty Start Date End Date Deep Pruitt APRN PCP - General 05/22/19 documented as of this encounter
--- OUTSIDE RECORDS SUMMARY | 2024-07-24 14:23 | XMS_ITS | Encounter Summary ---
Author Organization [employer] Address [address] [facility] [address] 7t [place] [address] Care Team Providers Care Plant Pathologist Name Role Phone Katrin Santoyo MD Primary Care Pro vider Edison Vieira MD Unavailable [phone] Joe Devi MD Unavailable [phone] Encounter Details Date Type Department Care Team (Late st Contact Info) Description 07/23/2024 Orders Only [facility] External Provider, [facility] Social History Tobacco Use Types Packs/Day Years [...] Description 08/13/2024 9:45 AM EDT Office Visit [facility] [address] [place] [address] [phone] 08/22/2024 1:15 PM EDT Office Visit [facility] [address] [place] [address] [phone] Katrin Santoyo MD [address] [place] [address] [phone] documented as of this encounter Goals Goal Patient Goal Type Associated Problems Recent Progress Patient-Stated? Author Blood Pressure < 140/90 Blood Pressure 166/96(2024 4:42 PM EDT) No NemesiosEve Greene, PharmD Hemoglobin A1c < 7 Result Component 12.5(03/27/20 24 3:40 PM EST) No Eve Guzman, PharmD documented as of this encounter Procedures Procedure Name Priority Date/Time Associated Diagnosis Comments US ABDOMEN COMPLETE WITH ELASTOGRAPHY Routine 07/23/2024 8:45 AM EDT documented in this encounter Results * US Abdomen Comp w elastography (07/23/2024 8:45 AM EDT) Anatomical Region Laterality Modality Abdomen Ultrasound 07/23/2024 8:45 AM EDT Narrative 07/23/2024 9:23 AM EDT ? [facility] ?[address] ?[place] [address] ? Ultrasound Report ? Signed ? Patient: Bhardwaj Sebastian,Darrel ?MR#: [id number] ?? [id number] ? : 1970 ?Acct:[id number] ? Age/Sex: 54 / M ?ADM Date: 07/23/24 ? Loc: HO.US ? Attending Dr: Chuy Mcmanus MD ? Ordering Physician: Chuy Mcmanus MD ?? Date of Service: 07/23/24 ?? Procedure(s): US abdomen comp w elastography ?? Accession Number(s): [id number] ? cc: Katrin Santoyo MD; Chuy Mcmanus [...] Radiologists in Ultrasound Liver Stiffness Thresholds (2020): ? LIVER STIFFNESS THRESHOLDS: ?? *Shear wave [...] ??Juvenal Caldera MD ??07/23/2024 09:20 AM EDT ? Dictated By: ?Juvenal Caldera MD ? Signed By: ?<Electronically signed by Juvenal Caldera MD in OV> ?07/23/24 0920 ? DD/ 0845 ? TD/TT: 07/23/24 0904 ? Human Machine Interface Engineer: ? Procedure Note Pato, Image - 07/23/2024 [place] [address] Ultrasound Report Signed Patient: Darrel HaganMR#: [id number] : 1970Acct:[id number] Age/Sex: 54 / MADM Date: 07/23/24 Loc: HO.US Attending Dr: Chuy Mcmanus MD Ordering Physician: Chuy Mcmanus MD Date of Service: 07/23/24 Procedure(s): US abdomen comp w elastography Accession Number(s): [id number] cc: Katrin Santoyo MD; Chuy Mcmanus MD [...] Juvenal Caldera MD 07/23/2024 09:20 AM EDT RP Dictated By: Juvenal Caldera MD Signed By: <Electronically signed by Juvenal Caldera MD in OV> 07/23/24 0920 DD/ 0845 TD/TT: 07/23/24 0904 Human Machine Interface Engineer: [facility] External Provider IMG US PROCEDURES Final Result documented in this encounter Visit Diagnoses Not on filedocumented in this encounter Additional Health Concerns Assessment Noted Time PHQ-9 Depression Total Score: 4 10/31/19 24 10:32 AM EDT documented as of this encounter Care Teams Plant Pathologist Relationship Specialty Start Date End Date Katrin Santoyo MD [address] [place] [address] PCP - General Internal Medicine 12/13/22 Edison Vieira MD [address] [place] [address] Pulmonary Disease 04/07/24 Joe Devi MD [address] [place] [address] 3rd [place] [address] Gastroenterology 04/07/24 Carito Roche DNP [address] [place] [address], [address] [place] [address] Nephrology 04/07/24 [employer] 04/11/24 documented as of this encounter
--- OUTSIDE RECORDS SUMMARY | 2024-07-24 14:23 | XMS_ITS | Encounter Summary ---
Author Organization [employer] Address 75 [facility] 7t [place] [address] Care Team Providers Care Subpoena Server Name Role Phone Katrin Santoyo MD Primary Care Pro vider Edison Vieira MD Unavailable [phone] Joe Devi MD Unavailable [phone] Reason for Referral * Consultation (Routine) - Authorized Specialty Diagnoses / Procedures Referred By Contac t Referred To Contact General Surgery Diagnoses Lipoma of other specified sites Katrin Leroy MD [address] [place] [address] Phone: tel: fax: [facility] General Surgery [address] [place] [address] Phone: tel: fax: Referral ID Status Reason Start Date Expiration Date Visits Requested Visits Authorized [id number] Authorized Specialty Services Required 07/10/2024 07/10/2025 12 12 Encounter Details Date Type Department Care Team (Late st Contact Info) Description 07/10/2024 2:00 PM EST Office Visit [facility] [address] [place] [address] [phone] Katrin Leroy MD [address] [place] [address] [phone] Lipoma of other specified sites (Primary Dx); [...] phosphatase elevation Secondary dental caries Fractured dental presybeterian without loss of material Right foot pain [...] MINI PEN NEEDLES 31G X 5 MM [facility] Use as instructed 100 each 11 Blood Glucose Monitoring Suppl ([employer] [place] Lite) w/Device kit Use to test blood [...] Continuous Blood Gluc Sensor (Dexcom G7 Sensor) [facility] Dextromethorphan-guaiFENesin (Mucinex DM) 30-600 MG tablet sustained-release [...] capsule 1 ergocalciferol (Vitamin D-2) 1.25 MG (05184 UT) capsule Take 1 capsule by mouth. [...] hours on and 12 hours off Nebulizers [facility] Use nebulizer as instructed 1 each 0 [...] 08/13/2024 9:45 AM EDT Office Visit [address] [address] 08/22/2024 1:15 PM EDT Office Visit [address] [address] Katrin Santoyo MD [address] [place] [address] Scheduled Referrals Name Type Priority Associated Diagnoses [...] documented as of this encounter Care Teams Subpoena Server Relationship Specialty Start Date End Date Katrin Santoyo MD [address] [place] [address] PCP - General Internal Medicine 12/13/22 Edison Vieira MD [address] [place] [address] Pulmonary Disease 04/07/24 Joe Devi MD [address] 3rd [place] [address] Gastroenterology 04/07/24 Carito Roche DNP [address], [address] [place] [address] Nephrology 04/07/24 [employer] 04/11/24 documented as of this encounter
--- OUTSIDE RECORDS SUMMARY | 2024-07-24 14:23 | XMS_ITS | Encounter Summary ---
Author Organization [facility] Address [address] [place] [address] Care Team Providers Care Machine Tool Electrician Name Role Phone BradfordDeep medina Niko LOPEZ Primary Care Provider Encounter Details Date Type Department Care Team (Late st Contact Info) Description 02/19/2020 Scanned Document [facility] [address] [place], [place] [phone] Arben Fountain, NOLVIA [address] [place] [address] Social History Tobacco Use Types [...] 10/02/2019 [facility] [place] of Occupat ional Health - Occupational Stress [...] as of this encounter Care Teams Machine Tool Electrician Relationship Specialty Start Date End Date Deep Pruitt APRN PCP - General 05/22/19 documented as of this encounter
--- OUTSIDE RECORDS SUMMARY | 2024-07-24 14:23 | XMS_ITS | Clinical Summary ---
Author Organization [facility] Address [address] [place] [address] Phone Care Team Providers Care Bridge Mechanic Name Role Phone Physician, No Pcp Primary [...] * Annual BMP Blood Test (11/07/2023) Pathologist Critical access hospital Annual BMP Blood Test Abstracted [facility] Provider HEALTH MAINTENANCE Final Result * Lipid panel (09/19/2023) Pathologist [facility] Triglycerides 0 mg/dL Comment:No interpretation Cholesterol 0 mg/dL Comment:No interpretation HDL 0 mg/dL Comment:No interpretation LDL Cholesterol 0 mg/dL Comment:No interpretation Blood Venous blood specimen / Unknown Result [facility] Provider LAB BLOOD ORDERABLES Fauzia l Result * Urine Albumin Creatinine Ratio (05/19/2023) Pathologist Critical access hospital Urine Albumin Creatinine Ratio Abstracted [facility] Provider HEALTH MAINTENANCE Final Result * Hemoglobin A1c (05/17/2023) Hemoglobin A1C 0.0 % Comment:No interpretation Blood Venous blood specimen / Unknown Result [facility] Provider LAB BLOOD ORDERABLES Fauzia l Result * HIV Screening (12/06/2022) HIV Screening Abstracted Result [facility] Provider HEALTH MAINTENANCE Final Result * Hepatitis C Screening (12/06/2022) Hepatitis C Screening Abstracted [facility] Provider HEALTH MAINTENANCE Final Result from Last 3 Months or Most Recently Relevant to Health Maintenance Insurance [place] Care Teams Bridge Mechanic Relationship Specialty Start Date End Date Physician, No Pcp PCP - General 04/08/24
--- OUTSIDE RECORDS SUMMARY | 2024-07-24 14:23 | XMS_ITS | Encounter Summary ---
Author Organization [facility] Address [address] [place] [address] Care Team Providers Care Healthcare Educator Name Role Phone Deep Pruitt JOHN Primary Care Provider Encounter Details Date Type Department Care Team (Late st Contact Info) Description 01/01/2018 Scanned Document [facility] [address] [place], [place] [phone] Francisco Veloz PA [address] [place] [phone] Social History Tobacco Use Types Packs/Day [...] documented as of this encounter Care Teams Healthcare Educator Relationship Specialty Start Date End Date Deep Pruitt APRN PCP - General 05/22/19 documented as of this encounter
--- OUTSIDE RECORDS SUMMARY | 2024-07-24 14:23 | XMS_ITS | Encounter Summary ---
Author Organization [employer] Address 75 [facility] 7t [place] [address] Care Team Providers Care Pitting Machine Operator Name Role Phone Katrin Santoyo MD Primary Care Pro vider Edison Vieira MD Unavailable [phone] Joe Devi MD Unavailable [phone] Reason for Visit * Reason Onset Date Comments r/s chronic pain group 07/03/2024 Encounter Details Date Type Department Care Team ([facility] Contact Info) Description 07/03/2024 Telephone [facility] [address] [place] [address] Gabriela Rea, RN [address] [place] [address] r/s chronic pain group Social History Tobacco [...] 07/02/24. TC to pt via S ID# [id number]. Appt r/s to 07/16/24 @ 9:30am. documented in this encounter Plan of Treatment Upcoming Encounters Date Type Department Care Team (Late st Contact Info) Description 08/13/2024 9:45 AM EDT Office Visit [facility] [address] [place] [address] 08/22/2024 1:15 PM EDT Office Visit [facility] [address] [place] [address] Katrin Santoyo MD [address] [place] [address] documented as of this encounter Goals Goal [...] documented as of this encounter Care Teams Pitting Machine Operator Relationship Specialty Start Date End Date Katrin Santoyo MD [address] [place] [address] PCP - General Internal Medicine 12/13/22 Edison Vieira MD [address] [place] [address] Pulmonary Disease 04/07/24 Joe Devi MD 11 [facility] 3rd [place] [address] Gastroenterology 04/07/24 Carito Roche DNP 10 [facility], [address] [place] [address] Nephrology 04/07/24 [employer] 04/11/24 documented as of this encounter
--- OUTSIDE RECORDS SUMMARY | 2024-07-24 14:23 | XMS_ITS | Encounter Summary ---
Author Organization [employer] Address [address] [facility] [address] 7t [place] [address] Care Team Providers Care Inker Machine Name Role Phone Katrin Santoyo MD Primary Care Pro vider Edison Vieira MD Unavailable [phone] Joe Devi MD Unavailable [phone] Reason for Visit * Reason Comments Med Refill Encounter Details Date Type Department Care Team (Late st Contact Info) Description 07/10/2024 Refill [facility] [address] [place], [place] [phone] June Jarvis ANP [address] [place], [place] [phone] Gout due to renal impairment, unspecified chronicity, [...] Description 08/13/2024 9:45 AM EDT Office Visit [facility] [address] [place] [address] 08/22/2024 1:15 PM EDT Office Visit [facility] [address] [place] [address] Katrin Santoyo MD [address] [place] [address] documented as of this encounter Goals Goal [...] documented as of this encounter Care Teams Inker Machine Relationship Specialty Start Date End Date Katrin Santoyo MD [address] [place] [address] PCP - General Internal Medicine 12/13/22 Edison Vieira MD [address] [place] [address] Pulmonary Disease 04/07/24 Joe Devi MD 11 [facility] 3rd [place] [address] Gastroenterology 04/07/24 Carito Roche DNP [address] [facility], [address] [place] [address] Nephrology 04/07/24 [email or web address] 04/11/24 documented as of this encounter
--- OUTSIDE RECORDS SUMMARY | 2024-07-24 14:23 | XMS_ITS | Encounter Summary ---
Author Organization [facility] Address [address] [place] [address] Care Team Providers Care Employment Manager Name Role Phone Deep Pruitt JOHN Primary Care Provider Encounter Details Date Type Department Care Team (Late st Contact Info) Description 02/12/2016 Scanned Document [facility] [address] [place] [address] Francisco Veloz PA [address] [place] [phone] Social History Tobacco Use Types Packs/Day [...] documented as of this encounter Care Teams Employment Manager Relationship Specialty Start Date End Date Deep Pruitt APRN PCP - General 05/22/19 documented as of this encounter
--- OUTSIDE RECORDS SUMMARY | 2024-07-24 14:23 | XMS_ITS | Encounter Summary ---
Author Organization [facility] Address [address] [place] [address] Care Team Providers Care Design Engineering Intern Name Role Phone Deep Pruitt JOHN Primary Care Provider [phone] Encounter Details Date Type Department Care Team (Late st Contact Info) Description 11/22/2017 Scanned Document [facility] [address] [place], [place] [phone] Francisco Veloz PA [address] [place] [address] Social History Tobacco Use Types [...] documented as of this encounter Care Teams Design Engineering Intern Relationship Specialty Start Date End Date Deep Pruitt APRN PCP - General 05/22/19 documented as of this encounter
--- OUTSIDE RECORDS SUMMARY | 2024-07-24 14:23 | XMS_ITS | Encounter Summary ---
Author Organization [facility] [employer] [facility] Address [address] [place] [address] Care Team Providers Care A Operator Name Role Phone Deep Pruitt APRN Primary Care Provider Reason for Visit * Reason Onset Date Comments Medication Refill 11/10/2021 Encounter Details Date Type Department Care Team (Late st Contact Info) Description 11/10/2021 Refill [facility] [address] [facility] 2nd [place] [address] Taylor Malagon, [facility] [address] [place] [phone] Medication Refill Social History Tobacco Use Types [...] Date Recorded PHQ-2 Total Score 0 10/12/2021 [facility] of Occupat ional [facility] [...] today, but unknown at home. Defer to [facility] pharmacy team for antihypertensive management. [...] documented as of this encounter Care Teams A Operator Relationship Specialty Start Date End Date Deep Pruitt APRN PCP - General 05/22/19 documented as of this encounter
--- OUTSIDE RECORDS SUMMARY | 2024-07-24 14:23 | XMS_ITS | Encounter Summary ---
Author Organization [facility] Address [address] [place] [address] Care Team Providers Care Treer Name Role Phone [place] med[place] Niko LOPEZ Primary Care Provider [phone] Reason for Visit * Reason Onset Date Comments Medication Refill 11/19/2021 Encounter Details Date Type Department Care Team (Late st Contact Info) Description 11/19/2021 Refill [facility] [address] [place] [address] Audelia Childs, DDS [address] [place] [address] Medication Refill Social History Tobacco [...] Date Recorded PHQ-2 Total Score 0 11/17/2021 [facility] [place] of Occupat ional Health - Occupational Stress [...] documented as of this encounter Care Teams Treer Relationship Specialty Start Date End Date Deep Pruitt APRN PCP - General 05/22/19 documented as of this encounter
--- OUTSIDE RECORDS SUMMARY | 2024-07-24 14:23 | XMS_ITS | Clinical Summary ---
Author Organization [facility] Address [address] [facility] [address] 0 [place] [address] Phone Care Team Providers Care Freight Sales Broker Name Role Phone Katrin Brumfield Primary Care [...] 4 12/04/19 25 Active ergocalciferol 1.25 MG (90298 UT) capsule Take 1 capsule (50,000 Units [...] (01/25/2023): information and pathology of colonospcy in [facility] 09-09-2020 note Asthma 01/06/2023 01/25/2023 [...] AM with Arben Fountain DPM at the [facility] -Will f/u with Pt in [...] monitor the Pt's TSH levels Results for DARRLE BHARDWAJ ( ) as of 09/12/2021 12:10 [...] the diagnosis was made: Pt lived in [facility] at the time, Under [facility] in [facility] see specific file at specific date [id number].TIF Image MRI Result [facility] - MRI BRAIN CVA -09/25/2016 [id number].TIF Image Evaluation [facility]- Left handed weakness note - 02/20/2017 [...] 2019, the Pt needs to call the [facility] [address] [place], [place] [phone] Diabetic foot 02/07/2019 01/25/2023 01/25/2023 Overview (01/25/2023): Last Assessment & Plan: The Pt continues to deal with bilateral foot pain and wears a pair of Diabetic shoes with specification ordered by his Oil And Gas Principal Doctor Patient encounter status 02/07/2019 01/25/2023 Overview [...] medications -He has been following with the [place] [facility] team and reports taking all of [...] , 03/24/2022, Additional history exists [place] Care Teams Freight Sales Broker Relationship Specialty Start Date End Date Katrin Brumfield [address] [place] [address] PCP - General 04/17/23
--- OUTSIDE RECORDS SUMMARY | 2024-07-24 14:23 | XMS_ITS | Encounter Summary ---
Author Organization [facility] Address [address] [place] [address] Care Team Providers Care Court Messenger Name Role Phone Deep Pruitt JOHN Primary Care Provider Encounter Details Date Type Department Care Team (Late st Contact Info) Description 02/13/2018 Scanned Document [facility] [address] [place] [address] Francisco Veloz PA [address] [place] [phone] Social History Tobacco Use Types Packs/Day [...] documented as of this encounter Care Teams Court Messenger Relationship Specialty Start Date End Date Deep Pruitt APRN PCP - General 05/22/19 documented as of this encounter
--- OUTSIDE RECORDS SUMMARY | 2024-07-24 14:23 | XMS_ITS | Encounter Summary ---
Author Organization [facility] Address [address] [place] [address] Care Team Providers Care Printing Plate Setter Name Role Phone Deep Pruitt JOHN Primary Care Provider [phone] Encounter Details Date Type Department Care Team (Late st Contact Info) Description 01/02/2017 Scanned Document [facility] [address] [place], [place] [phone] Francisco Veloz PA [address] [place] [address] Social History Tobacco Use Types [...] documented as of this encounter Care Teams Printing Plate Setter Relationship Specialty Start Date End Date Deep Pruitt APRN PCP - General 05/22/19 documented as of this encounter
--- OUTSIDE RECORDS SUMMARY | 2024-07-24 14:23 | XMS_ITS | Encounter Summary ---
Author Organization [facility] Address [address] [place] [address] Care Team Providers Care Switchgear Repairer Name Role Phone Deep Pruitt APRN Primary Care Provider Encounter Details Date Type Department Care Team ([facility] st Contact Info) Description 10/27/2021 Scanned Document [facility] [address] [place], [place] [phone] Deep Pruitt APRN [address] [place] [address] Social History Tobacco Use Types [...] Date Recorded PHQ-2 Total Score 0 10/12/2021 [facility] of Occupat ional [...] documented as of this encounter Care Teams Switchgear Repairer Relationship Specialty Start Date End Date Deep Pruitt APRN PCP - General 05/22/19 documented as of this encounter
--- OUTSIDE RECORDS SUMMARY | 2024-07-24 14:23 | XMS_ITS | Encounter Summary ---
Author Organization [employer] Address 75 [facility] 7t [place] [address] Care Team Providers Care Academic Advisor Name Role Phone Elise Stanford BACKUP OPERATOR Primary Care Provider [phone] Katrin Santoyo MD Primary Care Pro vider Edison Vieira MD Unavailable [phone] Joe Devi MD Unavailable [phone] Encounter Details Date Type Department Care Team (Late st Contact Info) Description 12/06/2022 Telephone [facility] [address] [place] [address] Susan Manzano LPN Social History Tobacco Use [...] glucose of 411 today. Call placed via [employer] industrial technology teacher [id number] patient updated that BG this morning elevated. [...] [facility] [address] [place] [address] 08/22/2024 1:15 PM EDT Office Visit [facility] [address] [place] [address] Katrin Santoyo MD [address] [place] [address] documented as of this encounter Visit Diagnoses Not on filedocumented in this encounter Additional Health Concerns Assessment Noted Time PHQ-9 Depression Total Score: 24 023 2:05 PM EDT documented as of this encounter Care Teams Academic Advisor Relationship Specialty Start Date End Date Elise Stanford FNP PCP - General Family Medicine 11/24/22 12/12/22 Katrin Santoyo MD [address] [place] [address] PCP - General Internal Medicine 12/13/22 Edison Vieira MD [address] [place] [address] Pulmonary Disease 04/07/24 Joe Devi MD 11 [facility] 3rd [place] [address] Gastroenterology 04/07/24 Carito Roche DNP 10 [facility], [address] [place] [address] Nephrology 04/07/24 [employer] 04/11/24 documented as of this encounter
--- OUTSIDE RECORDS SUMMARY | 2024-07-24 14:23 | XMS_ITS | Encounter Summary ---
Author Organization [facility] Address [address] [place] [address] Care Team Providers Care Technical Services Manager Name Role Phone Deep Pruitt JOHN Primary Care Provider Encounter Details Date Type Department Care Team (Late st Contact Info) Description 04/05/2017 Scanned Document [facility] [address] [place], [place] [phone] Francisco Veloz PA [address] [place] [phone] Social History Tobacco Use Types Packs/Day [...] of this encounter Care Teams Technical Services Manager Relationship Specialty Start Date End Date Deep Pruitt APRN PCP - General 05/22/19 documented as of this encounter
--- OUTSIDE RECORDS SUMMARY | 2024-07-24 14:23 | XMS_ITS | Encounter Summary ---
Author Organization [facility] Address 75 [facility] 7t [place] [address] Care Team Providers Care Security Operations Center Analyst Name Role Phone Elise Stanford Primary Care Provider [phone] Katrin Santoyo MD Primary Care Pro vider Edison Vieira MD Unavailable [phone] Joe Devi MD Unavailable [phone] Encounter Details Date Type Department Care Team (Latest Contact Info) Description 09/04/2018 Abstract [facility] CONVERSIONS Dental, Provider, DDS Social History Tobacco [...] Description 08/13/2024 9:45 AM EDT Office Visit [facility] [address] [place] [address] 08/22/2024 1:15 PM EDT Office Visit [facility] [address] [place] [address] [phone] Katrin Santoyo MD [address] [place] [address] documented as of this encounter Visit Diagnoses Not on filedocumented in this encounter Care Teams Security Operations Center Analyst Relationship Specialty Start Date End Date Elise Stanford FNP PCP - General Family Medicine 11/24/22 12/12/22 Katrin Santoyo MD 230 [place] [address] PCP - General Internal Medicine 12/13/22 Edison Vieira MD 5 [place] [address] Pulmonary Disease 04/07/24 Joe Devi MD 11 [facility] 3rd [place] [address] Gastroenterology 04/07/24 Carito Roche DNP 10 [facility], [address] [place] [address] Nephrology 04/07/24 [employer] 04/11/24 documented as of this encounter
--- OUTSIDE RECORDS SUMMARY | 2024-07-24 14:23 | XMS_ITS | Encounter Summary ---
Author Organization [employer] Address [address] [facility] [address] 7t [place] [address] Care Team Providers Care Payroll And Benefits Assistant Name Role Phone Katrin Santoyo MD Primary Care Pro vider Edison Vieira MD Unavailable [phone] Joe Devi MD Unavailable [phone] Encounter Details Date Type Department Care [...] t he electric, gas, oil or water [employer] threatened to shut off services in your [...] Description 08/13/2024 9:45 AM EDT Office Visit [facility] [address] [place] [address] [phone] 08/22/2024 1:15 PM EDT Office Visit [facility] [address] [place] [address] Katrin Santoyo MD [address] [place] [address] documented as of this encounter Goals Goal [...] documented as of this encounter Care Teams Payroll And Benefits Assistant Relationship Specialty Start Date End Date Katrin Santoyo MD 230 [place] [address] PCP - General Internal Medicine 12/13/22 Edison Vieira MD [address] [place] [address] Pulmonary Disease 04/07/24 Joe Devi MD [address]rd [place] [address] Gastroenterology 04/07/24 Carito Roche DNP [address], [address] [place] [address] Nephrology 04/07/24 [employer] 04/11/24 documented as of this encounter
--- OUTSIDE RECORDS SUMMARY | 2024-07-24 14:23 | XMS_ITS | Encounter Summary ---
Author Organization [employer] Address 75 [facility] 7t [place] [address] Care Team Providers Care Dual Rate Supervisor Name Role Phone Katrin Santoyo MD Primary Care Pro vider Edison Vieira MD Unavailable [phone] Joe Devi MD Unavailable [phone] Reason for Visit * Reason Comments Med Refill Encounter Details Date Type Department Care Team (Late st Contact Info) Description 01/02/2023 Refill [facility] MED[facility]INE 230 [place] [address] Elise Stanford FNP [address] [place] [address] Dept [place] [address] Hemorrhoids, unspecified hemorrhoid type Social History Tobacco [...] 9:45 AM EDT Office Visit [facility] MEDICINE [address] [place] [address] 08/22/2024 1:15 PM EDT Office Visit [facility]INE [address] [place] [address] Katrin Santoyo MD [address] [place] [address] documented as of this encounter Goals Goal [...] documented as of this encounter Care Teams Dual Rate Supervisor Relationship Specialty Start Date End Date Katrin Santoyo MD [address] [place] [address] PCP - General Internal Medicine 12/13/22 Edison Vieira MD 5 [place] [address] Pulmonary Disease 04/07/24 Joe Devi MD 11 [facility] 3rd [place] [address] Gastroenterology 04/07/24 Carito Roche DNP 10 [facility], [address] [place] [address] Nephrology 04/07/24 [employer] 04/11/24 documented as of this encounter
--- OUTSIDE RECORDS SUMMARY | 2024-07-24 14:23 | XMS_ITS | Encounter Summary ---
Author Organization [employer] Address 75 [facility] 7t [place] [address] Care Team Providers Care Safe And Vault Installer Name Role Phone Elise Stanford CHICKEN FANCIER Primary Care Provider [phone] Katrin Santoyo MD Primary Care Pro vider Edison Vieira MD Unavailable [phone] Joe Devi MD Unavailable [phone] Encounter Details Date Type Department Care Team (Late st Contact Info) Description 12/06/2022 Telephone [facility] [address] [place] [address] Susan Manzano LPN Social History Tobacco Use [...] Critical result line call from Damaris with [facility]. Patient glucose reported as 411 today. Triage call to follow with patient. Please update PCP with critical result. documented in this encounter Plan of Treatment Upcoming Encounters Date Type Department Care Team (Late st Contact Info) Description 08/13/2024 9:45 AM EDT Office Visit [facility] [address] [place] [address] 08/22/2024 1:15 PM EDT Office Visit [address] [address] Katrin Santoyo MD [address] [place] [address] documented as of this encounter Visit Diagnoses Not on filedocumented in this encounter Additional Health Concerns Assessment Noted Time PHQ-9 Depression Total Score: 24 023 2:05 PM EDT documented as of this encounter Care Teams Safe And Vault Installer Relationship Specialty Start Date End Date Elise Stanford FNP PCP - General Family Medicine 11/24/22 12/12/22 Katrin Santoyo MD [address] [place] [address] PCP - General Internal Medicine 12/13/22 Edison Vieira MD 5 [place] [address] Pulmonary Disease 04/07/24 Joe Devi MD 11 [facility] 3rd [place] [address] Gastroenterology 04/07/24 Carito Roche DNP 10 [facility], [address] [place] [address] Nephrology 04/07/24 [employer] 04/11/24 documented as of this encounter
--- OUTSIDE RECORDS SUMMARY | 2024-07-24 14:23 | XMS_ITS | Encounter Summary ---
Author Organization [facility] Address [address] [place] [address] Care Team Providers Care Ball Ender Name Role Phone Deep Pruitt JOHN Primary Care Provider Encounter Details Date Type Department Care Team (Late st Contact Info) Description 09/26/2016 Scanned Document [facility] [address] [place], [place] [phone] External, Provider Social History Tobacco Use Types [...] documented as of this encounter Care Teams Ball Ender Relationship Specialty Start Date End Date Deep Pruitt APRN PCP - General 05/22/19 documented as of this encounter
--- OUTSIDE RECORDS SUMMARY | 2024-07-24 14:23 | XMS_ITS | Encounter Summary ---
Author Organization [facility] [email or web address] [facility] Address [address] [place] [address] Care Team Providers Care Linotype Machinist Name Role Phone Deep Pruitt APRN Primary Care Provider Reason for Visit * Reason Onset Date Comments Medication Refill 11/10/2021 Encounter Details Date Type Department Care Team (Late st Contact Info) Description 11/10/2021 Refill [facility] [address] [facility] [address] [facility] 2nd [place] [address] Taylor Malagon, [facility] [address] [place] [phone] Medication Refill Social History Tobacco Use Types [...] 10/12/2021 [facility] of Occupat ional [facility] - Occupational Stress Questionnaire Answer Date [...] documented as of this encounter Care Teams Linotype Machinist Relationship Specialty Start Date End Date Deep Pruitt APRN PCP - General 05/22/19 documented as of this encounter
--- OUTSIDE RECORDS SUMMARY | 2024-07-24 14:23 | XMS_ITS | Encounter Summary ---
Author Organization [facility] Address [address] [place] [address] Care Team Providers Care Jig Grinder Name Role Phone Deep Pruitt APRN Primary Care Provider [phone] Reason for Visit * Reason Onset Date Comments Medication Refill 11/10/2021 Encounter Details Date Type Department Care Team (Late st Contact Info) Description 11/10/2021 Refill [facility] [address] [place], [place] [phone] Anahi Rossi, JOHN [address] [place] [address] Medication Refill Social History Tobacco [...] [facility] of Occupat ional [facility] - Occupational Stress Questionnaire [...] as of this encounter Care Teams Jig Grinder Relationship Specialty Start Date End Date Deep Pruitt APRN PCP - General 05/22/19 documented as of this encounter
--- OUTSIDE RECORDS SUMMARY | 2024-07-24 14:24 | XMS_ITS | Encounter Summary ---
Author Organization [employer] Address 75 [facility] 7t [place] [address] Care Team Providers Care Foundry Laborer Coreroom Name Role Phone Katrin Santoyo MD Primary Care Pro vider Edison Vieira MD Unavailable [phone] Joe Devi MD Unavailable [phone] Reason for Visit * Reason Comments Med Refill Encounter Details Date Type Department Care Team ([facility] st Contact Info) Description 06/25/2024 Refill [facility] [address] [place] [address] [phone] Katrin Santoyo MD [address] [place] [address] Social History Tobacco Use Types Packs/Day Years [...] Description 08/13/2024 9:45 AM EDT Office Visit [facility] [address] [place] [address] 08/22/2024 1:15 PM EDT Office Visit [facility] [address] [place] [address] Katrin Santoyo MD [address] [place] [address] documented as of this encounter Goals Goal [...] documented as of this encounter Care Teams Foundry Laborer Coreroom Relationship Specialty Start Date End Date Katrin Santoyo MD [address] [place] [address] PCP - General Internal Medicine 12/13/22 Edison Vieira MD 5 [place] [address] Pulmonary Disease 04/07/24 Joe Devi MD 11 [facility] 3rd [place] [address] Gastroenterology 04/07/24 Carito Roche DNP 10 [facility], [address] [place] [address] Nephrology 04/07/24 [employer] 04/11/24 documented as of this encounter
--- OUTSIDE RECORDS SUMMARY | 2024-07-24 14:24 | XMS_ITS | Encounter Summary ---
Author Organization [facility] Address [address] [place] [address] Care Team Providers Care Communications Advisor Name Role Phone Deep Pruitt APRN Primary Care Provider Reason for Visit * Reason Comments Medication Refill Encounter Details Date Type Department Care Team ([facility] st Contact Info) Description 11/24/2020 Telephone [facility] [address] [place] [address] Deep Pruitt APRN [address] [place] [address] Medication Refill Social History Tobacco [...] Date Recorded PHQ-2 Total Score 0 11/18/2020 [facility] of Occupat ional Health [...] of certain medication. Call back number is [phone] (saudi arabian speaking) preferred pharmacy is [facility] [address] [address] documented in this encounter Plan [...] documented as of this encounter Care Teams Communications Advisor Relationship Specialty Start Date End Date Deep Pruitt APRN PCP - General 05/22/19 documented as of this encounter
--- OUTSIDE RECORDS SUMMARY | 2024-07-24 14:24 | XMS_ITS | Encounter Summary ---
Author Organization [employer] Address 75 [facility] 7t [place] [address] Care Team Providers Care Showplace Manager Name Role Phone Katrin Santoyo MD Primary Care Pro vider Edison Vieira MD Unavailable [phone] Joe Devi MD Unavailable [phone] Reason for Visit * Reason Onset Date Comments Med Refill 2024 Encounter Details Date Type Department Care Team ([facility] st Contact Info) Description 2024 Telephone [facility] [address] [place], [place] [phone] Katrin Santoyo MD [address] [place], [place] [phone] Med Refill Social History Tobacco Use Types [...] EST TC placed to pt with S senior trial attorney James #[id number] to inquire as to the medication that the pt needs refills on. The pt was very vague and did not have an exact name of the medication but stated thatit was used topically for foot pain. Pt also stated that it was prescribed by a Green Team provider. RN called [facility] pharmacy who confirmed that the pt most [...] Office Visit [facility] [address] [place] [address] 08/22/2024 1:15 PM EDT Office Visit [facility] [address] [place] [address] Katrin Santoyo MD [address] [place] [address] documented as of this encounter Goals Goal [...] documented as of this encounter Care Teams Showplace Manager Relationship Specialty Start Date End Date Katrin Santoyo MD [address] [place] [address] PCP - General Internal Medicine 12/13/22 Edison Vieira MD 5 [place] [address] Pulmonary Disease 04/07/24 Joe Devi MD 11 [facility] 3rd [place] [address] Gastroenterology 04/07/24 Carito Roche DNP 10 [facility], [address] [place] [address] Nephrology 04/07/24 [employer] 04/11/24 documented as of this encounter
--- OUTSIDE RECORDS SUMMARY | 2024-07-24 14:24 | XMS_ITS | Encounter Summary ---
Author Organization [employer] Address [address] [facility] [address] 7t [place] [address] Care Team Providers Care Sieve Grader Tender Name Role Phone Katrin Santoyo MD Primary Care Pro vider Edison Vieira MD Unavailable [phone] Joe Devi MD Unavailable [phone] Encounter Details Date Type Department Care [...] t he electric, gas, oil or water [email or web address] threatened to shut off services in your [...] Visit [facility] MEDICINE [address] [place] [address] [phone] 08/22/2024 1:15 PM EDT Office Visit [facility] MEDICINE [address] [place] [address] Katrin Santoyo MD [address] [place] [address] documented as of this encounter Goals Goal [...] documented as of this encounter Care Teams Sieve Grader Tender Relationship Specialty Start Date End Date Katrin Santoyo MD 230 [place] [address] PCP - General Internal Medicine 12/13/22 Edison Vieira MD [address] [place] [address] Pulmonary Disease 04/07/24 Joe Devi MD [address] [place] [address] Gastroenterology 04/07/24 Carito Roche DNP [address], [address] [place] [address] Nephrology 04/07/24 [employer] 04/11/24 documented as of this encounter
--- OUTSIDE RECORDS SUMMARY | 2024-07-24 14:24 | XMS_ITS | Encounter Summary ---
Author Organization [facility] Address [address] [place] [address] Care Team Providers Care High School Social Studies Teacher Name Role Phone Deep Pruitt APRN Primary Care Provider Reason for Visit * Reason Comments Other Encounter Details Date Type Department Care Team ([facility] Contact Info) Description 01/13/2021 Telephone [facility] [address] [place] [address] Deep Pruitt APRN [address] [place] [address] Other Social History Tobacco Use [...] Recorded PHQ-2 Total Score 6 01/12/2021 [facility] of Occupat ional Health [...] a side effect fromthat medication. Patient utilizes [facility] [address] [place] [address] Patient contact [phone] documented in this encounter Plan of Treatment [...] of this encounter Care Teams High School Social Studies Teacher Relationship Specialty Start Date End Date Deep Pruitt APRN PCP - General 05/22/19 documented as of this encounter
--- OUTSIDE RECORDS SUMMARY | 2024-07-24 14:24 | XMS_ITS | Encounter Summary ---
Author Organization [facility] [employer] and [facility] Address [address] [place] [address] Care Team Providers Care Supervisor Tellers Name Role Phone Deep Pruitt APRN Primary Care Provider Reason for Visit * Reason Onset Date Comments Medication Refill 10/12/2021 Encounter Details Date Type Department Care Team (Late st Contact Info) Description 10/12/2021 Refill [facility] at [address] [place] [address] Anahi Rossi, JOHN [address] [place] [address] Medication Refill Social History Tobacco [...] Date Recorded PHQ-2 Total Score 0 10/12/2021 [facility] of Occupat ional [facility] [...] as of this encounter Care Teams Supervisor Tellers Relationship Specialty Start Date End Date Deep Pruitt APRN PCP - General 05/22/19 documented as of this encounter
--- OUTSIDE RECORDS SUMMARY | 2024-07-24 14:24 | XMS_ITS | Encounter Summary ---
Author Organization [employer] Address [address] [facility] 7t [place] [address] Care Team Providers Care Stamping Press Operator Name Role Phone Katrin Santoyo MD Primary Care Pro vider Edison Vieira MD Unavailable [phone] Joe Devi MD Unavailable [phone] Reason for Visit * Reason Onset Date Comments Referral 04/05/2023 Encounter Details Date Type Department Care Team (Late st Contact Info) Description 04/05/2023 Telephone [facility] [address] [place], [place] [phone] Katrin Santoyo MD [address] [place], [place] [phone] Referral Social History Tobacco Use Types Packs/Day [...] Bhardwaj - 04/06/2023 10:27 AM EST Called [facility] Gastro for an update and they stated [...] Gastro made on 04/04/2023 sent to [address] [facility], states that they called facility and facility informs that their missing a summary form. Please contact pt at [phone] Citizen Of [place] Speaker documented in this encounter Plan of Treatment Upcoming Encounters Date Type Department Care Team ([facility] st Contact Info) Description 08/13/2024 9:45 AM EDT Office Visit [facility] [address] [place] [address] 08/22/2024 1:15 PM EDT Office Visit [facility] [address] [place] [address] [phone] Katrin Santoyo MD [address] [place] [address] documented as of this encounter Goals Goal [...] as of this encounter Care Teams Stamping Press Operator Relationship Specialty Start Date End Date Katrin Santoyo MD [address] [place] [address] PCP - General Internal Medicine 12/13/22 Edison Vieira MD [address] [place] [address] Pulmonary Disease 04/07/24 Joe Devi MD [address] [place] [address] 3rd [place] [address] Gastroenterology 04/07/24 Carito Roche DNP [address] [facility], [address] [place] [address] Nephrology 04/07/24 [employer] 04/11/24 documented as of this encounter
--- OUTSIDE RECORDS SUMMARY | 2024-07-24 14:24 | XMS_ITS | Encounter Summary ---
Author Organization [facility] Address [address] [place] [address] Care Team Providers Care Kettle Coordinator Name Role Phone Deep Pruitt APRN Primary Care Provider [phone] Reason for Visit * Reason Comments Medication Refill Encounter Details Date Type Department Care Team ([facility] st Contact Info) Description 12/29/2020 Refill [facility] [address] [place] [address] Deep Pruitt APRN [address] [place] [phone] Medication Refill Social History Tobacco Use [...] documented as of this encounter Care Teams Kettle Coordinator Relationship Specialty Start Date End Date Deep Pruitt APRN PCP - General 05/22/19 documented as of this encounter
--- OUTSIDE RECORDS SUMMARY | 2024-07-24 14:24 | XMS_ITS | Encounter Summary ---
Author Organization [employer] Address [address] [facility] [facility] [address] 7t [place] [address] Care Team Providers Care Assistant Bookkeeper Name Role Phone Katrin Santoyo MD Primary Care Pro vider Edison Vieira MD Unavailable [phone] Joe Devi MD Unavailable [phone] Encounter Details Date Type Department Care Team (Late st Contact Info) Description 2024 11:20 AM EST Office Visit [facility] [address] [place] [address] Dhara Cardenas MD [address] [place] [address] Acute bronchitis, unspecified organism (Primary Dx); Influenza [...] 2024 11:20 AM EST Pt presents to [facility] complaining of cough with phlegm, body [...] Office Visit [facility] [address] [place] [address] 08/22/2024 1:15 PM EDT Office Visit [facility] [address] [place] [address] Katrin Santoyo MD [address] [place] [address] documented as of this encounter Goals Goal [...] EST) Influenza A Positive( A) Negative, Indeterminate [facility] Swab 2024 11:0 9 AM EST us Dhara Cardenas MD POINT OF CARE TEST ENTER/EDIT OR DERABLES Final Result [facility] [address] [place] [address] [phone] * POCT Rapid COVID Ag (2024 11:08 AM EST) Rapid COVID Ag Negative Swab 2024 11:0 8 AM EST Dhara Cardenas MD POINT OF CARE TEST ENTER/EDIT OR DERABLES Final Result * Influenza B (ID NOW Rapid Molecular) (2024 11:08 AM EST) Influenza B Negative Negative, Indeterminate [facility] Swab 2024 11:0 8 AM EST Dhara Cardenas MD POINT OF CARE TEST ENTER/EDIT OR DERABLES Final Result [facility] [address] [place] [phone] documented in this encounter Visit Diagnoses [...] as of this encounter Care Teams Assistant Bookkeeper Relationship Specialty Start Date End Date Katrin Santoyo MD [address] [place] [address] PCP - General Internal Medicine 12/13/22 Edison Vieira MD [address] [place] [address] Pulmonary Disease 04/07/24 Joe Devi MD [address] 3rd [place] [address] Gastroenterology 04/07/24 Carito Roche DNP [address], [address] [place] [address] Nephrology 04/07/24 [employer] 04/11/24 documented as of this encounter
--- OUTSIDE RECORDS SUMMARY | 2024-07-24 14:24 | XMS_ITS | Encounter Summary ---
Author Organization [employer] Address [address] [facility] 7t [place] [address] Care Team Providers Care Employee Relations Specialist Name Role Phone Katrin Santoyo MD Primary Care Pro vider Edison Vieira MD Unavailable [phone] Joe Devi MD Unavailable [phone] Reason for Visit * Reason Comments Med Refill Encounter Details Date Type Department Care Team (Late st Contact Info) Description 2024 Refill [facility] [address] [place], [place] [phone] Katrin Santoyo MD [address] [place] [address] Social History Tobacco Use Types Packs/Day Years [...] Description 08/13/2024 9:45 AM EDT Office Visit [facility] [address] [place] [address] 08/22/2024 1:15 PM EDT Office Visit [facility] [address] [place] [address] Katrin Santoyo MD [address] [place] [address] documented as of this encounter Goals Goal [...] documented as of this encounter Care Teams Employee Relations Specialist Relationship Specialty Start Date End Date Katrin Santoyo MD [address] [place] [address] PCP - General Internal Medicine 12/13/22 Edison Vieira MD [address] [place] [address] Pulmonary Disease 04/07/24 Joe Devi MD [address] 3rd [place] [address] Gastroenterology 04/07/24 Carito Roche DNP [address], [address] [place] [address] Nephrology 04/07/24 [employer] 04/11/24 documented as of this encounter
--- OUTSIDE RECORDS SUMMARY | 2024-07-24 14:24 | XMS_ITS | Encounter Summary ---
Author Organization [facility] [employer] and [facility] Address [address] [place] [address] Care Team Providers Care Stuffing Machine Operator Name Role Phone Deep Pruitt APRN Primary Care Provider Reason for Visit * Reason Onset Date Comments Medication Refill 10/12/2021 Encounter Details Date Type Department Care Team (Late st Contact Info) Description 10/12/2021 Refill [facility] [address] [facility] [address] [facility] 2nd [place] [address] Taylor Malagon, [facility] [address] [place] [phone] Medication Refill Social History Tobacco Use Types [...] Date Recorded PHQ-2 Total Score 0 10/12/2021 [facility] of Occupat ional [facility] [...] documented as of this encounter Care Teams Stuffing Machine Operator Relationship Specialty Start Date End Date Deep Pruitt APRN PCP - General 05/22/19 documented as of this encounter
--- OUTSIDE RECORDS SUMMARY | 2024-07-24 14:24 | XMS_ITS | Encounter Summary ---
Author Organization [facility] Address [address] [place] [address] Care Team Providers Care Security Director Name Role Phone Deep Pruitt JOHN Primary Care Provider Reason for Visit * Reason Onset Date Comments Medication Refill 10/12/2021 Encounter Details Date Type Department Care Team (Late st Contact Info) Description 10/12/2021 Refill [facility] Nutrition at [address] [phone] Angie Mcghee MD [address] [place] [phone] Medication Refill Social History Tobacco Use Types [...] Date Recorded PHQ-2 Total Score 0 10/12/2021 [facility] of Occupat ional Health - [...] as of this encounter Care Teams Security Director Relationship Specialty Start Date End Date Deep Pruitt APRN PCP - General 05/22/19 documented as of this encounter
--- OUTSIDE RECORDS SUMMARY | 2024-07-24 14:24 | XMS_ITS | Encounter Summary ---
Author Organization [facility] Address [address] [place] [address] Care Team Providers Care Quality Assurance Calibrator Name Role Phone Deep Pruitt APRN Primary Care Provider Reason for Visit * Reason Comments Medication Refill Encounter Details Date Type Department Care Team ([facility] st Contact Info) Description 02/01/[address] [facility] [address] [place], [place] [phone] Deep Pruitt APRN [address] [place] [address] Medication Refill Social History Tobacco [...] Date Recorded PHQ-2 Total Score 6 01/21/2021 [facility] of Occupat ional Health [...] as of this encounter Care Teams Quality Assurance Calibrator Relationship Specialty Start Date End Date Deep Pruitt APRN PCP - General 05/22/19 documented as of this encounter
--- OUTSIDE RECORDS SUMMARY | 2024-07-24 14:24 | XMS_ITS | Encounter Summary ---
Author Organization [facility] Address [address] [place] [address] Care Team Providers Care Development Spec Name Role Phone SonalDeep Niko LOPEZ Primary Care Provider Reason for Visit * Reason Comments Medication Refill Encounter Details Date Type Department Care Team (Late st Contact Info) Description 01/04/2021 Refill [facility] Nutrition at [address] [address] Zena Hines PA [address] [place] [phone] Medication Refill Social History Tobacco Use [...] Date Recorded PHQ-2 Total Score 0 11/18/2020 [facility] of Occupat [...] as of this encounter Care Teams Development Spec Relationship Specialty Start Date End Date Deep Pruitt APRN PCP - General 05/22/19 documented as of this encounter
--- OUTSIDE RECORDS SUMMARY | 2024-07-24 14:24 | XMS_ITS | Encounter Summary ---
Author Organization [employer] Address [address] [facility] 7 [place] [address] Care Team Providers Care Territory Sales Executive Name Role Phone Katrin Santoyo MD Primary Care Pro vider Edison Vieira MD Unavailable [phone] Joe Devi MD Unavailable [phone] Encounter Details Date Type Department Care Team (Late st Contact Info) Description 06/21/2023 Abstract [facility] MEDICINE [address] [place], [place] [phone] Katrin Santoyo MD [address] [place] [address] Social History Tobacco Use Types Packs/Day Years [...] 08/13/2024 9:45 AM EDT Office Visit [facility] MEDICINE [address] [place] [address] 08/22/2024 1:15 PM EDT Office Visit [facility] MEDICINE [address] [place] [address] [phone] Katrin Santoyo MD [address] [place] [address] documented as of this encounter Goals Goal [...] documented as of this encounter Care Teams Territory Sales Executive Relationship Specialty Start Date End Date Katrin Santoyo MD [address] [place] [address] PCP - General Internal Medicine 12/13/22 Edison Vieira MD [address] [place] [address] Pulmonary Disease 04/07/24 Joe Devi MD [address] 3rd Floor [place] [address] Gastroenterology 04/07/24 Carito Roche DNP [address], [address] [place] [address] Nephrology 04/07/24 [employer] 04/11/24 documented as of this encounter
--- OUTSIDE RECORDS SUMMARY | 2024-07-24 14:25 | XMS_ITS | Encounter Summary ---
Author Organization [employer] Address [address] [facility] 7t [place] [address] Care Team Providers Care Allied Health Teacher Name Role Phone Katirn Santoyo MD Primary Care Pro vider Edison Vieira MD Unavailable [phone] Joe Devi MD Unavailable [phone] Reason for Visit * Reason Comments Med Refill Encounter Details Date Type Department Care Team ([facility] st Contact Info) Description 07/03/2024 Refill [facility] [address] [place] [address] [phone] Katrin Santoyo MD [address] [place] [address] Social History Tobacco Use Types Packs/Day Years [...] Description 08/13/2024 9:45 AM EDT Office Visit [facility] MEDICINE [address] [place] [address] 08/22/2024 1:15 PM EDT Office Visit [facility] MEDICINE [address] [place] [address] Katrin Santoyo MD [address] [place] [address] documented as of this encounter Goals Goal [...] documented as of this encounter Care Teams Allied Health Teacher Relationship Specialty Start Date End Date Katrin Santoyo MD [address] [place] [address] PCP - General Internal Medicine 12/13/22 Edison Vieira MD [address] [place] [address] Pulmonary Disease 04/07/24 Joe Devi MD [address] [facility] 3rd [place] [address] Gastroenterology 04/07/24 Carito Roche DNP [address] [facility], [address] [place] [address] Nephrology 04/07/24 [employer] 04/11/24 documented as of this encounter
--- OUTSIDE RECORDS SUMMARY | 2024-07-24 14:26 | XMS_ITS | Encounter Summary ---
Author Organization [facility] Address [address] [place] [address] Care Team Providers Care Hand Laminator Name Role Phone Deep Pruitt APRN Primary Care Provider Reason for Visit * Reason Comments Medication Problem Encounter Details Date Type Department Care Team ([facility] Contact Info) Description 10/11/2021 Telephone [facility] [address] [place] [address] Deep Pruitt APRN [address] [place] [address] Medication Problem Social History Tobacco [...] Date Recorded PHQ-2 Total Score 0 10/12/2021 [facility] of Occupat ional Health [...] 08 of October Spoke to sissy via revenue director #[id number] (patti) patient states she spoke to the [...] if patient medication can be [facility] [place] - [address] . Best contact: [phone] documented in this encounter Plan of Treatment Not on file documented as of this encounter Visit Diagnoses Not on filedocumented in this encounter Additional Health Concerns Infection Onset Date Last Indicated Resolved Time COVID-19 09/29/2021 09/29/2021 10/19/2021 7:19 PM EDT Assessment Noted Time PHQ-9 Depression Total Score: 0 10/08/19 22 1:27 PM EDT documented as of this encounter Care Teams Hand Laminator Relationship Specialty Start Date End Date Deep Pruitt APRN PCP - General 05/22/19 documented as of this encounter
--- OUTSIDE RECORDS SUMMARY | 2024-07-24 14:26 | XMS_ITS | Encounter Summary ---
Author Organization [facility] Address [address] [place] [address] Care Team Providers Care Cheese Factory Worker Name Role Phone Deep Pruitt APRN Primary Care Provider Reason for Visit * Reason Comments Medication Refill Encounter Details Date Type Department Care Team ([facility] st Contact Info) Description 11/11/2020 Refill [facility] [address] [place] [address] Deep Pruitt APRN [address] [place] [phone] Medication Refill Social History Tobacco Use [...] Answer Date Recorded PHQ-2 Score 2 07/07/2020 [facility] of Occupat ional [facility] - Occupational Stress Questionnaire Answer Date [...] documented as of this encounter Care Teams Cheese Factory Worker Relationship Specialty Start Date End Date Deep Pruitt APRN PCP - General 05/22/19 documented as of this encounter
--- OUTSIDE RECORDS SUMMARY | 2024-07-24 14:26 | XMS_ITS | Encounter Summary ---
Author Organization [facility] and [facility] Address [address] [place] [phone] Care Team Providers Care Windows Mobile Developer Name Role Phone Deep Pruitt APRN Primary Care Provider Encounter Details Date Type Department Care Team (Latest Contact Info) Description 09/13/2021 Transcribed Orders [facility] Laboratory Specimens [address] [place] [address] Deep Pruitt APRN [address] [place] [address] Encounter for routine screening for [...] Total Score 5 09/14/2021 [facility] of Occupat ional Health - [...] ng/mL 09/13/2021 1:44 PM EDT [facility] Prostate Specific Antigen, Free (YH) 0.28 0.00 - 3.90 ng/mL 09/13/2021 1:44 PM EDT [facility] Comment:Prostate Specific An tigen, Free Percentage can not be calculated. PSA, Total value out of appropriate range. Blood Venipuncture / Unknown 09/09/2021 12:05 PM EDT 09/13/2021 10:48 AM EDT Narrative [facility] - 09/13/2021 1:44 [...] LAB BLOOD ORDERABLES Final Result [facility] [address] [place] [address] documented in this encounter Visit Diagnoses Diagnosis [...] as of this encounter Care Teams Windows Mobile Developer Relationship Specialty Start Date End Date Deep Pruitt APRN PCP - General 05/22/19 documented as of this encounter
--- OUTSIDE RECORDS SUMMARY | 2024-07-24 14:26 | XMS_ITS | Encounter Summary ---
Author Organization [facility] Address [address] [place] [address] Care Team Providers Care Layout Designer Name Role Phone Deep Pruitt APRN Primary Care Provider Encounter Details Date Type Department Care Team ([facility] st Contact Info) Description 11/14/2020 Scanned Document [facility] [address] [place], [place] [phone] Deep Pruitt APRN [address] [place] [address] Social History Tobacco Use Types [...] documented as of this encounter Care Teams Layout Designer Relationship Specialty Start Date End Date Deep Pruitt APRN PCP - General 05/22/19 documented as of this encounter
--- OUTSIDE RECORDS SUMMARY | 2024-07-24 14:26 | XMS_ITS | Encounter Summary ---
Author Organization [facility] Address [address] [place] [address] Care Team Providers Care Nuclear Weapons Custodian Name Role Phone Deep Pruitt APRN Primary Care Provider [phone] Reason for Visit * Reason Comments Other Advice Only Encounter Details Date Type Department Care Team ([facility] Contact Info) Description 09/28/2021 Telephone [facility] [address] [place] [address] Deep Pruitt APRN [address] [place] [address] Other; Advice Only Social History [...] Date Recorded PHQ-2 Total Score 5 09/14/2021 [facility] of Occupat ional [...] be given because his underlying condition. Patient [phone] documented in this encounter Plan of Treatment Not on file documented as of this encounter Visit Diagnoses Not on filedocumented in this encounter Additional Health Concerns Infection Onset Date Last Indicated Resolved Time COVID-19 09/29/2021 09/29/2021 10/19/2021 7:19 PM EDT Assessment Noted Time PHQ-9 Depression Total Score: 7 09/15/19 22 10:31 AM EDT documented as of this encounter Care Teams Nuclear Weapons Custodian Relationship Specialty Start Date End Date Deep Pruitt APRN PCP - General 05/22/19 documented as of this encounter
--- OUTSIDE RECORDS SUMMARY | 2024-07-24 14:26 | XMS_ITS | Encounter Summary ---
Author Organization [facility] [employer] and [facility] Address [address] [place] [phone] Care Team Providers Care Import Export Agent Name Role Phone Deep Pruitt APRN Primary Care Provider [phone] Reason for Visit * Reason Onset Date Comments Medication Refill 09/22/2021 Encounter Details Date Type Department Care Team (Late st Contact Info) Description 09/22/2021 Refill [facility] [facility] [address] [facility] 2nd [place] [address] Kaity [place], AUTOMOTIVE SERVICES MANAGER [address] [place] [phone] Medication Refill Social History Tobacco Use Types [...] Total Score 5 09/14/2021 [facility] - Occupational Stress Questionnaire Answer Date [...] documented as of this encounter Care Teams Import Export Agent Relationship Specialty Start Date End Date Deep Pruitt APRN PCP - General 05/22/19 documented as of this encounter
--- OUTSIDE RECORDS SUMMARY | 2024-07-24 14:26 | XMS_ITS | Encounter Summary ---
Author Organization [facility] [employer] [facility] and [facility] Address [address] [place] [phone] Care Team Providers Care Office Rn Name Role Phone Deep Pruitt APRN Primary Care Provider Reason for Visit * Reason Onset Date Comments Medication Refill 09/20/2021 Encounter Details Date Type Department Care Team (Late st Contact Info) Description 09/20/2021 Refill [facility] [address] [facility] [address] [facility] 2nd [place] [address] Ricarda Du MD [address] [place] [phone] Medication Refill Social History Tobacco Use Types [...] Date Recorded PHQ-2 Total Score 5 09/14/2021 [facility] Occupat ional Health [...] as of this encounter Care Teams Office Rn Relationship Specialty Start Date End Date Deep Pruitt APRN PCP - General 05/22/19 documented as of this encounter
--- OUTSIDE RECORDS SUMMARY | 2024-07-24 14:26 | XMS_ITS | Encounter Summary ---
Author Organization [facility] Address [address] [place] [address] Care Team Providers Care Director Of Hotel Operations Name Role Phone CarmelDeep medina Niko LOPEZ Primary Care Provider Reason for Visit * Reason Onset Date Comments Medication Refill 09/22/2021 Encounter Details Date Type Department Care Team (Late st Contact Info) Description 09/22/2021 Refill [facility] Nutrition at [address] [address] Zena Hines PA [address] [place] [phone] Medication Refill Social History Tobacco Use [...] is no longer seeing Zena Hines at [facility] for DM mangement. Nate, Katrin documented [...] of this encounter Care Teams Director Of Hotel Operations Relationship Specialty Start Date End Date Deep Pruitt APRN PCP - General 05/22/19 documented as of this encounter
--- OUTSIDE RECORDS SUMMARY | 2024-07-24 14:26 | XMS_ITS | Encounter Summary ---
Author Organization [facility] Address [address] [place] [address] Care Team Providers Care Dental Therapist Name Role Phone Deep Pruitt APRN Primary Care Provider Reason for Visit * Reason Comments Medication Refill Encounter Details Date Type Department Care Team ([facility] st Contact Info) Description 11/05/2020 Refill [facility] [address] [place] [address] Deep Pruitt APRN [address] [place] [phone] Medication Refill Social History Tobacco Use [...] 2 07/07/2020 [facility]at ional [facility] - Occupational Stress Questionnaire Answer Date Recorded [...] as of this encounter Care Teams Dental Therapist Relationship Specialty Start Date End Date Deep Pruitt APRN PCP - General 05/22/19 documented as of this encounter
--- OUTSIDE RECORDS SUMMARY | 2024-07-24 14:26 | XMS_ITS | Encounter Summary ---
Author Organization [facility] Address [address] [place] [phone] Care Team Providers Care Electrical Machine Builder Name Role Phone Deep Pruitt APRN Primary Care Provider Reason for Visit * Reason Onset Date Comments Medication Refill 09/30/2021 Encounter Details Date Type Department Care Team (Late st Contact Info) Description 09/30/2021 Refill [facility] [address] [facility] [address] [facility] 2nd [place] [address] Rubin Valderrama, [facility] [address] [place] [phone] Medication Refill Social History Tobacco Use Types [...] Recorded PHQ-2 Total Score 5 09/14/2021 [facility] [...] as of this encounter Care Teams Electrical Machine Builder Relationship Specialty Start Date End Date Deep Pruitt APRN PCP - General 05/22/19 documented as of this encounter
--- OUTSIDE RECORDS SUMMARY | 2024-07-24 14:26 | XMS_ITS | Encounter Summary ---
Author Organization [facility] Address [address] [place] [phone] Care Team Providers Care Irrigating Pump Operator Name Role Phone Deep Pruitt APRN Primary Care Provider Reason for Visit * Reason Onset Date Comments Medication Refill 09/30/2021 Encounter Details Date Type Department Care Team (Late st Contact Info) Description 09/30/2021 Refill [facility] at [address] [facility] [address] [facility] 2nd [place] [address] Kaity Harris, AIR TRANSPORTATION PROVIDER [address] [place] [phone] Medication Refill Social History Tobacco Use Types [...] Score 5 09/14/2021 [facility] - Occupational Stress Questionnaire Answer Date [...] documented as of this encounter Care Teams Irrigating Pump Operator Relationship Specialty Start Date End Date Deep Pruitt APRN PCP - General 05/22/19 documented as of this encounter
--- OUTSIDE RECORDS SUMMARY | 2024-07-24 14:26 | XMS_ITS | Encounter Summary ---
Author Organization [facility] Address [address] [place] [phone] Care Team Providers Care Fermenting Cellars Supervisor Name Role Phone Deep Pruitt APRN Primary Care Provider Encounter Details Date Type Department Care Team (Latest Contact Info) Description 09/09/2021 Transcribed Orders [facility] [address] [place] [address] Deep Pruitt APRN [address] [place] [address] Encounter for routine screening for [...] Date Recorded PHQ-2 Total Score 2 09/08/[address] [facility] - Occupational Stress Questionnaire Answer Date Recorded [...] Orde r Schedule TSH w/reflex to FT4 ([facility] LMW Q YH) Lab Routine [...] health care facility TSH W/REFLEX TO FT4 ([facility] LMW Q YH) Routine 09/09/2021 [...] prostate Routine general medical examination at a [facility] care facility ALBUMIN/CREATININE PANEL, URINE, RANDOM Routine 09/09/2021 11:01 AM EDT Encounter for routine screening for malformation using ultrasonics Special screening for malignant neoplasm of prostate Routine general medical examination at a [facility] care facility CBC WITH AUTO DIFFERENTIAL Routine 09/09/2021 10:58 AM EDT Encounter for routine screening for malformation using ultrasonics Special screening for malignant neoplasm of prostate Routine general medical examination at a [facility] care facility CBC AND DIFFERENTIAL Routine 09/09/2021 10:58 AM EDT Encounter for routine screening for malformation using ultrasonics Special screening for malignant neoplasm of prostate Routine general medical examination at a [facility] care facility HEMOGLOBIN A1C Routine 09/09/2021 [...] ng/mL 09/13/2021 1:44 PM EDT [facility] DEPARTMENT OF LABORATORY MEDICINE Prostate Specific Antigen, Free (YH) 0.28 0.00 - 3.90 ng/mL 09/13/2021 1:44 PM EDT [facility] DEPARTMENT OF LABORATORY MEDICINE Comment:Prostate Specific An tigen, Free Percentage can not be calculated. PSA, Total value out of appropriate range. Blood Venipuncture / Unknown 09/09/2021 12:05 PM EDT 09/13/2021 10:48 AM EDT Narrative [facility] DEPARTMENT OF LABORATORY MEDICINE - [...] in the 2-4 ng/mL range. Deep Pruitt [facility] LAB BLOOD ORDERABLES Final Result Performing Organization Address City/State/[facility] Co de Phone Number [facility] DEPARTMENT OF LABORATORY MEDICINE [address] [place] [address] * (ABNORMAL) Comprehensive metabolic panel (09/09/2021 12:05 PM EDT) Sodium 140 136 - 144 mmol/L 09/09/2021 2:42 PM EDT [facility] Potassium 4.9 3.3 - 5.3 mmol/L 09/09/2021 2:42 PM EDT [facility] Chloride 101 98 - 107 mmol/L 09/09/2021 2:42 PM EDT [facility] CO2 27 20 - 30 mmol/L 09/09/2021 2:42 PM EDT [facility] Anion Gap 12 7 - 17 09/09/2021 2:42 PM EDT [facility] Glucose 148(H) 70 - 100 mg/dL 09/09/2021 2:42 PM EDT [facility] BUN 31(H) 6 - 20 mg/dL 09/09/2021 2:42 PM EDT [facility] Creatinine 1.40(H) 0.40 - 1.30 mg/dL 09/09/2021 2:42 PM EDT [facility] Calcium 9.5 8.8 - 10.2 mg/dL 09/09/2021 2:42 PM T [facility] BUN/Creatinine Ratio 22.1 8.0 - 23.0 0509/2021 2:42 PM EDT [facility] Total Protein 6.4(L) 6.6 - 8.7 g/dL 09/09/2021 2:42 PM EDT [facility] Albumin 3.6 3.6 - 4.9 g/dL 09/09/2021 2:42 PM T [facility] Total Bilirubin 0.2 <=1.2 mg/dL 09/09/2021 2:42 PM T [facility] Alkaline Phosphatase 135(H) 9 - 122 U/L 09/09/2021 2:42 PM T [facility] Alanine Aminotransferase (ALT) 40 9 - 59 U/L 09/09/2021 2:42 PM T [facility] Comment:Calcium dobesilate c an cause artificially low ALT results at therapeutic concentrations Aspartate Aminotransferase (AST) 33 10 - 35 U/L 09/09/2021 2:42 PM T [facility] Globulin 2.8 2.3 - 3.5 g/dL 09/09/2021 2:42 PM T [facility] A/G Ratio 1.3 1.0 - 2.2 09/09/2021 2:42 PM T [facility] AST/ALT Ratio 0.8 See Comment 09/09/2021 2:42 PM T [facility] Comment: Adult with mild elevations of transaminases (< 5 times upper limit of normal): AST/ALT > 2 suggests alcoholic liver injury AST/ALT < 1 suggests non-alcoholic fatty liver disease (NAFLD) [place] (healthy): AST/ALT can be > 3 on day 0 AST/ALT < 2 by day 5 The thresholds provided focus on the most common etiologies of elevated serum transaminase levels and the associated alteration of AST:ALT ratios; they are not intended to exclude other feasible and clinically appropriate possibilities eGFR (Afr Amer) >60 >60 mL/min/1.7 3m2 09/09/2021 2:42 PM EDT [facility] Comment: Values under 60mL/min/1.73m2 may indicate CKD if noted for ?? more than 3 months. eGFR is only valid if creatinine is at steady state. eGFR (NON -Tu[place]uan) 53 >60 mL/min/1.7 3m2 09/09/2021 2:42 PM EDT [facility] Comment: Values under 60mL/min/1.73m2 may indicate CKD if noted for ?? more than 3 months. eGFR is only valid if creatinine is at steady state. Blood Venipuncture / Unknown 09/09/2021 12:05 PM EDT 09/09/2021 12:05 PM EDT Deep Pruitt ASSOCIATE PROFESSOR OF [employer] LAB BLOOD ORDERABLES Final Result Performing Organization Address City/[facility]/ZIP Co de Phone Number [facility] [address] [place] [address] * TSH w/reflex to FT4 ( GH LMW Q YH) (09/09/2021 12:05 PM EDT) Thyroid Stimulating Hormone 3.640 See Comment ??IU/mL 09/09/2021 2:42 PM EDT [facility] Comment: Male & Non- Females: 0.270-4.200 ??IU/mL 1st Trimester: 0.110-3.480 ??IU/mL 2nd Trimester: 0.320-3.850 ??IU/mL Blood Venipuncture / Unknown 09/09/2021 12:05 PM EDT 09/09/2021 12:05 PM EDT Deep Pruitt ASSOCIATE PROFESSOR OF [employer]RARY [employer] LAB BLOOD ORDERABLES Final Result Performing Organization Address City/[facility]/ZIP Co de Phone Number [facility] [address] [place] [address] * LDL cholesterol, direct (09/09/2021 12:05 PM EDT) LDL Direct 63 See Comment mg/dL 09/09/2021 2:41 PM EDT [facility] Comment: LDL Cholesterol (mg/dL) ?Adults (>=18 years) ?Children (<18 years) Desirable ?<100 ? <110 Above Desirable ?100-129 ?Not Established Borderline-High ?130-159 ?110- 129 High ? 160-189 ?>=130 Very High? >=190 ?Not Established Blood Venipuncture / Unknown 09/09/2021 12:05 PM EDT 09/09/2021 12:05 PM EDT us Deep Pruitt APRN LAB BLOOD ORDERABLES Final Result Performing Organization Address [facility]/ZIP Co de Phone Number [facility] [address] [place] [id number] [place] [address] * (ABNORMAL) Albumin/creatinine panel, urine, random (09/09/2021 11:01 AM EDT) Albumin, Urine, Random 1,616.3 Reference Range Not Established mg/L 09/09/2021 2:52 PM EDT [facility] Creatinine, Urine, Random 35 Reference Range Not Established mg/dL 09/09/2021 2:52 PM EDT [facility] Albumin/Creatin ine Ratio, Urine, Random 4,684.9(H ) <30.0 mg/g Cr 09/09/2021 2:52 PM EDT [facility] Comment: High albuminuria (formerly microalbuminuria): ??30-300 mg/g Cr Very high albuminuria (overt albuminuria): ? >300 mg/g Cr Urine Collection / Unknown 09/09/2021 11:01 AM EDT 09/09/2021 11:01 AM EDT Deep Pruitt APRN URINE ORDERABLES Final Resu lt Performing Organization Address [facility] Co de Phone Number [address] [id number] [phone] * (ABNORMAL) CBC auto differential (09/09/2021 10:58 AM EDT) WBC 13.5(H) 4.0 - 11.0 x1000/??L 09/09/2021 2:16 PM EDT [facility] RBC 5.05 4.00 - 6.00 M/??L 09/09/2021 2:16 PM EDT [facility] Hemoglobin 13.9 13.2 - 17.1 g/dL 09/09/2021 2:16 PM EDT [facility] Hematocrit 46.10 38.50 - 50.00 % 09/09/2021 2:16 PM EDT [facility] MCV 91.3 80.0 - 100.0 fL 09/09/2021 2:16 PM EDT [facility] MCH 27.5 27.0 - 33.0 pg 09/09/2021 2:16 PM EDT [facility] MCHC 30.2(L) 31.0 - 36.0 g/dL 09/09/2021 2:16 PM EDT [facility] RDW-CV 15.1(H) 11.0 - 15.0 % 09/09/2021 2:16 PM EDT [facility] Platelets 298 150 - 420 x1000/??L 09/09/2021 2:16 PM EDT [facility] MPV 13.0(H) 8.0 - 12.0 fL 09/09/2021 2:16 PM EDT [facility] Neutrophils 63.6 39.0 - 72.0 % 09/09/2021 2:16 PM EDT [facility] Lymphocytes 22.5 17.0 - 50.0 % 09/09/2021 2:16 PM EDT [facility] Monocytes 9.2 4.0 - 12.0 % 09/09/2021 2:16 PM EDT [facility] Eosinophils 3.6 0.0 - 5.0 % 09/09/2021 2:16 PM EDT [facility] Basophil 0.4 0.0 - 1.4 % 09/09/2021 2:16 PM EDT [facility] Immature Granulocytes 0.7 0.0 - 1.0 % 09/09/2021 2:16 PM EDT [facility] nRBC 0.0 0.0 - 1.0 % 09/09/2021 2:16 PM EDT [facility] ANC(Abs Neutrophil Count) 8.60(H) 2.00 - 7.60 x 1000/??L 09/09/2021 2:16 PM EDT [facility] Absolute Lymphocyte Count 3.05 0.60 - 3.70 x 1000/??L 09/09/2021 2:16 PM EDT [facility] Monocyte Absolute Count 1.24(H) 0.00 - 1.00 x 1000/??L 09/09/2021 2:16 PM EDT [facility] Eosinophil Absolute Count 0.49 0.00 - 1.00 x 1000/??L 09/09/2021 2:16 PM EDT [facility] Basophil Absolute Count 0.06 0.00 - 1.00 x 1000/??L 09/09/2021 2:16 PM EDT [facility] Absolute Immature Granulocyte Count 0.10 0.00 - 0.30 x 1000/??L 09/09/2021 2:16 PM EDT [facility] Absolute nRBC 0.00 0.00 - 1.00 x 1000/??L 09/09/2021 2:16 PM EDT [facility] Blood Venipuncture / Unknown 09/09/2021 10:58 AM EDT 09/09/2021 10:58 AM EDT Deep Pruitt APRN LAB BLOOD ORDERABLES Final Result [facility] [address] [place] [address] * (ABNORMAL) Hemoglobin A1c (09/09/2021 10:58 AM EDT) Hemoglobin A1c 11.5(H) 4.0 - 5.6 % 09/10/2021 6:36 PM EDT [facility] DEPARTMENT OF LABORATORY MEDICINE Comment: Hemoglobin A1c [...] mg/dL 09/10/2021 6:36 PM EDT [facility] DEPARTMENT OF LABORATORY MEDICINE Comment: Estimated average glucose (eAG) is a calculated value designed to estimate ??the expected average blood glucose level throughout the day from a single ??measurement of ??glycated hemoglobin A1C (HbA1c) and follows the calculation proposed by the [place] [employer] (Diabetes Care 31: 1-6, 2008). It may have less accuracy in children, women and patients with certain erythrocyte disorders. Blood Venipuncture / Unknown 09/09/2021 10:58 AM EDT 09/09/2021 10:58 AM EDT Deep Pruitt APRN LAB BLOOD ORDERABLES Final Result [facility] DEPARTMENT OF LABORATORY MEDICINE [address] [place] [address] documented in this encounter Visit Diagnoses Diagnosis [...] documented as of this encounter Care Teams Fermenting Cellars Supervisor Relationship Specialty Start Date End Date Deep Pruitt APRN PCP - General 05/22/19 documented as of this encounter
--- OUTSIDE RECORDS SUMMARY | 2024-07-24 14:26 | XMS_ITS | Encounter Summary ---
Author Organization [facility] Address [address] [place] [address] Care Team Providers Care Bobbin Inspector Name Role Phone Deep Pruitt APRN Primary Care Provider Reason for Visit * Reason Comments Other Appointment Encounter Details Date Type Department Care Team ([facility] Contact Info) Description 10/07/2021 Telephone [facility] [address] [place] [address] Deep Pruitt APRN [address] [place] [address] Other; Appointment Social History Tobacco [...] Date Recorded PHQ-2 Total Score 0 10/07/2021 [facility] of Occupat ional Health [...] after dropped call ,patient has virtual appt [phone] documented in this encounter Plan of Treatment Not on file documented as of this encounter Visit Diagnoses Not on filedocumented in this encounter Additional Health Concerns Infection Onset Date Last Indicated Resolved Time COVID-19 09/29/2021 09/29/2021 10/19/2021 7:19 PM EDT Assessment Noted Time PHQ-9 Depression Total Score: 0 10/08/19 22 1:27 PM EDT documented as of this encounter Care Teams Bobbin Inspector Relationship Specialty Start Date End Date Deep Pruitt APRN PCP - General 05/22/19 documented as of this encounter
--- OUTSIDE RECORDS SUMMARY | 2024-07-24 14:26 | XMS_ITS | Encounter Summary ---
Author Organization [facility] Address [address] [place] [address] Care Team Providers Care Legal Investigator Name Role Phone Deep Pruitt APRN Primary Care Provider [phone] Reason for Visit * Reason Comments Medication Refill Encounter Details Date Type Department Care Team ([facility] st Contact Info) Description 11/11/2020 Refill [facility] [address] [place] [address] Deep Pruitt APRN [address] [place] [phone] Medication Refill Social History Tobacco Use [...] Answer Date Recorded PHQ-2 Score 2 07/07/2020 [facility] of Occupat ional [facility] [...] as of this encounter Care Teams Legal Investigator Relationship Specialty Start Date End Date Deep Pruitt APRN PCP - General 05/22/19 documented as of this encounter
--- OUTSIDE RECORDS SUMMARY | 2024-07-24 14:26 | XMS_ITS | Encounter Summary ---
Author Organization [facility] Address [address] [place] [address] Care Team Providers Care Machine Grainer Name Role Phone Deep Pruitt APRN Primary Care Provider Reason for Visit * Reason Comments Medication Refill Encounter Details Date Type Department Care Team ([facility] st Contact Info) Description 10/20/2020 Refill [facility] [address] [place], [place] [phone] Deep Pruitt APRN [address] [place] [address] Medication Refill Social History Tobacco [...] as of this encounter Care Teams Machine Grainer Relationship Specialty Start Date End Date Deep Pruitt APRN PCP - General 05/22/19 documented as of this encounter
--- OUTSIDE RECORDS SUMMARY | 2024-07-24 14:27 | XMS_ITS | Encounter Summary ---
Author Organization [facility] Address [address] [place] [address] Care Team Providers Care Woods Laborer Name Role Phone Romelia Pruittian Niko LOPEZ Primary Care Provider Reason for Visit * Reason Comments Medication Refill Encounter Details Date Type Department Care Team ([facility] st Contact Info) Description 09/16/2021 Refill [facility] [address] [place] [address] Carlos Eduardo Joyner MD [address] [place] [phone] Medication Refill Social History Tobacco Use [...] Date Recorded PHQ-2 Total Score 5 09/14/2021 [facility] of Occupat ional Health [...] documented as of this encounter Care Teams Woods Laborer Relationship Specialty Start Date End Date Deep Pruitt APRN PCP - General 05/22/19 documented as of this encounter
--- OUTSIDE RECORDS SUMMARY | 2024-07-24 14:28 | XMS_ITS | Encounter Summary ---
Author Organization [facility] Address [address] [place] [address] Care Team Providers Care Stem Dryer Maintainer Name Role Phone Deep Pruitt APRN Primary Care Provider [phone] Reason for Visit * Reason Comments Medication Refill Encounter Details Date Type Department Care Team ([facility] st Contact Info) Description 09/23/2020 Refill [facility] [address] [place] [address] Deep Pruitt APRN [address] [place] [phone] Medication Refill Social History Tobacco Use [...] Answer Date Recorded PHQ-2 Score 2 07/07/2020 [facility] of Occupat ional [facility] - Occupational Stress Questionnaire Answer Date [...] documented as of this encounter Care Teams Stem Dryer Maintainer Relationship Specialty Start Date End Date Deep Pruitt APRN PCP - General 05/22/19 documented as of this encounter
--- OUTSIDE RECORDS SUMMARY | 2024-07-24 14:28 | XMS_ITS | Encounter Summary ---
Author Organization [facility] [employer] [facility] Address [address] [place] [phone] Care Team Providers Care Blasting Contract Man Name Role Phone Deep Pruitt APRN Primary Care Provider Encounter Details Date Type Department Care Team (Late st Contact Info) Description 08/05/2021 Orders Only [facility] [address] [place] [address] Carolyn Marin MD [address] [place] [phone] Essential hypertension Social History Tobacco Use [...] Recorded PHQ-2 Total Score 4 07/13/2021 [facility] of Occupat [...] documented as of this encounter Care Teams Blasting Contract Man Relationship Specialty Start Date End Date Deep Pruitt APRN PCP - General 05/22/19 documented as of this encounter
--- OUTSIDE RECORDS SUMMARY | 2024-07-24 14:28 | XMS_ITS | Encounter Summary ---
Author Organization [facility] Address [address] [place] [address] Care Team Providers Care Ethnoarchaeology Professor Name Role Phone Deep Pruitt APRN Primary Care Provider Reason for Visit * Reason Comments Medication Refill Encounter Details Date Type Department Care Team ([facility] st Contact Info) Description 09/17/2020 Refill [facility] [address] [place] [address] Deep Pruitt APRN [address] [place] [phone] Medication Refill Social History Tobacco Use [...] 2 07/07/2020 [facility] of Occupat ional [facility] - Occupational Stress Questionnaire Answer [...] documented as of this encounter Care Teams Ethnoarchaeology Professor Relationship Specialty Start Date End Date Deep Pruitt APRN PCP - General 05/22/19 documented as of this encounter
--- OUTSIDE RECORDS SUMMARY | 2024-07-24 14:28 | XMS_ITS | Clinical Summary ---
Author Organization [address] Address [address] [place] [id number] Care Team Providers Care Cnp Name Role Phone Deep Pruitt APRN Primary Care Provider [phone] Allergies Active Allergy Reactions Criticality Noted Date [...] edema will order Compression sleeves today from [facility] today, Put on lower legs during [...] of insulin, Duration 99, Feeding difficulty R63.30 94074 mL 06/23/19 Active metFORMIN (GLUCOPHAGE) 1000 mg [...] AM with Arben Fountain DPM at the [facility] -Will f/u with Pt in [...] appointment and was informed he can call [phone] to find a closer time Assessment & Plan (02/19/2022 1:59 PM EDT): -The Pt went to his [employer] and was c/o right kidney pain for [...] worse at night - pathway utilized through fruux, patient eligible for molnupiravir, may benefit from [...] Ref. Range 04/07/2020 SPEP Interpretation Unknown ?? Fhjly-8-Yjgcwkig Latest Ref Range: 0.2 - 0.3 g/dL 0.3 Japei-8-Lwbnrerb Latest Ref Range: 0.5 - 0.9 g/dL 1.1 (H) Interpretation Unknown Comment Only Abnormal Protein Band 2 Latest Ref Range: NONE DETECTED g/dL CANCELED Abnormal Protein Band 3 Latest Ref Range: NONE DETECTED g/dL CANCELED Arfg-4-Fpjprsoz Latest Ref Range: 0.4 - 0.6 g/dL 0.5 Xmbd-1-Krsbwnll Latest Ref Range: 0.2 - 0.5 g/dL [...] 04/08/2020 17:50 ?? Ref. Range 04/07/2020 Free Knowlton Latest Ref Range: 3.3 - 19.4 mg/L 35.9 (H) Free Lambda Latest Ref Range: 5.7 - 26.3 mg/L 26.6 (H) Free Knowlton/Lambda Ratio Latest Ref Range: 0.26 - 1.65 [...] (04/10/2020 3:23 PM EST): Had consulted Dr oTng in regards to Pt having elevated Eosinophils and she had recommended for the the Pt to get additional labs SPEP panel to determine the reason [facility] Interpretation Comment: Suggestive of acute inflammation pattern with elevation of acute phase proteins Results for DARREL BHARDWAJ ( ) as of 04/10/2020 15:12 Ref. Range 04/07/2020 SPEP Interpretation Unknown Epulb-1-Gzbdepiw Latest Ref Range: 0.2 - 0.3 g/dL 0.3 Iahic-8-Zoxlkbhq Latest Ref Range: 0.5 - 0.9 g/dL 1.1 (H) Interpretation Unknown Comment Only Abnormal Protein Band 2 Latest Ref Range: NONE DETECTED g/dL CANCELED Abnormal Protein Band 3 Latest Ref Range: NONE DETECTED g/dL CANCELED Iecr-2-Khhhxnjn Latest Ref Range: 0.4 - 0.6 g/dL 0.5 Ddnx-4-Lvmergfb Latest Ref Range: 0.2 - 0.5 g/dL [...] 04/08/2020 17:50 ?? Ref. Range 04/07/2020 Free Knowlton Latest Ref Range: 3.3 - 19.4 mg/L 35.9 (H) Free Lambda Latest Ref Range: 5.7 - 26.3 mg/L 26.6 (H) Free Knowlton/Lambda Ratio Latest Ref Range: 0.26 - 1.65 [...] of 04/08/2020 17:50 Ref. Range 04/07/2020 Free Knowlton Latest Ref Range: 3.3 - 19.4 mg/L 35.9 (H) Free Lambda Latest Ref Range: 5.7 - 26.3 mg/L 26.6 (H) Free Knowlton/Lambda Ratio Latest Ref Range: 0.26 - 1.65 [...] like to speak with his pcp first [phone] Phone Conversation with Pt over the phone: PCP called uzbek speaking (uncontrolled diabetic) Pt over the phone, [...] Tried to call the Pt using the Uzbek Interpretor [id number], V/M was not set up [...] have CC'd Ricarda Du MD, his primary hosiery mender. She has a phone consult with him [...] all the Pt medication bottle be in uzbek, Pt had a medication (allopurinoL (ZYLOPRIM) 100 mg tablet) error because he can not read in Luxem[place], the Pt was prescribed 1/2 tab but [...] next appointment to see me at the assistant front desk manager ?? Latest Reference Range & Units 09/09/21 12/15/21 BUN 7 - 25 mg/dL 31 (H) 29 (H) Creatinine 0.70 - 1.30 mg/dL 1.40 (H) 1.55 (H) BUN/Creatinine Ratio 6 - 22 (calc) 22.1 19 eGFR (NON -German) >60 mL/min/1.73m2 53 eGFR (Afr Amer) >60 [...] Range: 8.0 - 23.0 22.1 eGFR (NON -German) Latest Ref Range: >60 mL/min/1.73m2 53 eGFR [...] Taylor Malagon APRN at the Nephrology at [address] [place] [address], The Renal department is working on getting the Pt a 24 hour HTN monitor to assess the effectiveness of his recent medication changes, used uzbek interpretor 9297 ?? 07/13/2021 Renal Referral Note:?? Assessment and [...] effectiveness of his recent medication changes, used uzbek interpretor 9217 07/13/2021 Renal Referral Note: Assessment [...] given a referral to talk with the [facility] Astronomy Professor for further assessment of his current diet [...] and magnesium supplements that he said a will call clerk told him were good for his kidneys. [...] preparation for his first visit with a hosiery mender, Ricarda Du MD on 04/07/2020. Assessment & Plan (02/12/2020 2:18 PM EDT): Pt was recently in the hospital for Kidney issues, the Pt missed a previous Kidney appointment and will ask Pt to reschedule another Kidney appointment Date & Time 02/25/2020 10:00 AM Provider Taylor Malagon APRN Department [facility] [address] [facility] Nephrology [address] [facility] 2[address] Floor [facility] [address] Comment: Pt needs a Kidney referral due [...] 23 (H) 23 (H) 14.7 eGFR (NON -German) Latest Ref Range: >60 mL/min/1.73m2 76 77 [...] (see MRI of Brain from 2017 under [facility] Multimedia -Significant deficits on neurologic exam Memory loss and Left handed weakness -Imaging and prior evaluation -Current blood thinning agents is aspirin -Potential details to include, when relevant: poor GAIT, uses a walker to get around -How the diagnosis was made: Pt lived in [facility] at the time, Under Multimedia in [facility] see specific file at specific date [id number] Image MRI Result [facility] - MRI BRAIN CVA -09/25/2016 [id number] Image Evaluation [facility]- Left handed weakness note - 02/20/2017 [...] a letter to be given to the [employer] advising stating that the Pt is disabled and needs help with housing Is there a form to be fill out from the [employer] advising that the Pt is disabled and needs help with housing t 03/26/21 Oksana Fox to Deep Pruitt NP Summary: Letters needed by patient This public relations writer met with patient at the clinic today 03.26.21 per nurses request, to assistance with letters that the patient is requesting. This public relations writer spoke to patient and patient is [...] Patient is also requesting a letter for [employer] advising that he is disabled. Patient stated that he has already applied for and wants this letter to help him get Housing CCM: 15 minutes 04/11/2021 Deep Pruitt APRN Assessment & Plan (05/31/2020 5:20 PM EST): Pt had a CVA from 2017 and needs Neuro clearance before getting a Colonoscopy Presumed etiology of prior stroke (see MRI of Brain from 2017 under [facility] Multimedia Significant deficits on neurologic exam Memory loss and Left handed weakness Imaging and prior evaluation Current blood thinning agents is aspirin Potential details to include, when relevant: poor GAIT, uses a walker to get around How the diagnosis was made: Pt lived in [facility] at the time, Under Multimedia in [facility] see specific file at specific date [id number] Image MRI Result [facility] - MRI BRAIN CVA -09/25/2016 [id number] Image Evaluation [facility]- Left handed weakness note - 02/20/2017 [...] is working with his Diabetic Specialist at [facility] and has an appointment next week, will increase his Gababentin to 800 mg PO TID which has helped with his neuropathic pain, Spent 25 mins with Pt using the Pharmacy Clerk Microalbuminuric diabetic nephropathy (HC Code) (HC CODE) [...] Ricarda Du MD at the Nephrology at [address] [place] [address] Results for DARREL BHARDWAJ ( ) as [...] ) as of 09/19/2019 07:04 eGFR (NON -German) Latest Ref Range: > OR = 60 [...] for Bariatric surgery and Pt needs a fur dry cleaner hand Assessment & Plan (09/10/2021 5:42 PM EDT): Pt has a BMI of 40.4 and is working with the wellness clinic to work on his weight loss plan, putting a referral in for Bariatric surgery and Pt needs a fur dry cleaner hand Assessment & Plan (09/26/2019 9:45 AM EDT): Pt has a BMI of 40.4 and is working with the wellness clinic to work on his weight loss plan, putting a referral in for Bariatric surgery and Pt needs a fur dry cleaner hand Assessment & Plan (09/09/2019 2:47 PM EDT): [...] whole encounter. The interview was conducted in Uzbek which is my [place] language. I have encouraged Mr. Bhardwaj to contact us with any questions, concerns or clinical changes. Plan: 1. Continue current therapy. 2. No need for supplemental oxygen. Assessment & Plan (12/23/2021 12:10 PM EDT): -The Pt continues to feel like he is constantly SOB and is asking to be put on Oxygen CYLINDER SANDER OPERATOR -The Pt was given a list of labs to complete and once done then the Pt will be scheduled appointment with his Manager Cardiac -The Pt and the Manager Cardiac will decide together if the pt needs to be on O2 CYLINDER SANDER OPERATOR or not 08/18/2021 Pulmonary Note: Assessment: [...] ways in which he can request an veneer lathe operator over the phone and I [...] complaints are out of proportion to seemingly xphe-of-vijebojq asthma and his dyspnea is likely multifactorial. [...] ways in which he can request an veneer lathe operator over the phone and I [...] complaints are out of proportion to seemingly ixnn-er-kyauihco asthma and his dyspnea is likely multifactorial. [...] in collaboration with Dr. Deep Yo. ?? [facility] Quality Initiatives: ?? Tobacco [...] allergies spent 20 mins with Pt using Uzbek Interpretor 1674 Assessment & Plan (11/14/2020 11:15 [...] 7 years for colon cancer screening purposes.??Used Uzbek interpretor 8245 Assessment & Plan (06/16/2021 10:23 [...] years for colon cancer screening purposes. Used Uzbek interpretor 8245 Assessment & Plan (09/13/2020 7:30 [...] years for colon cancer screening purposes. Used Uzbek interpretor 3293 Assessment & Plan (06/24/2020 4:13 PM EST): Pt was informed of the following message and told to call and was asked to call to make a colonoscopy appointment 06/03/20 12:29 PM Message from [facility] at [address] [place] [address] Called patient to cancel pre colon appointment, [...] the Pt had colonoscopy at [facility] in [facility] and was told to return in [...] REPORT ? Patient: DARREL BHARDWAJ ?MR #: [id number] ([id number]) ?Submitted by: Hedy Hameed MD STOMACH, BIOPSY [...] disordered breathing. RECOMMENDATIONS / PLAN : -Current [employer] recommendations for treatment of [...] Pt Called patient with Jose Rolon. Nancy #[id number]. Patient said that he has an old [...] spent 45 mins with Pt with a retail assistant SLEEP STUDY - [facility] - [phone] Assessment & Plan (09/09/2019 3:22 PM EDT): Pt typically sleep 2.5 hours a night, Pt still has to return his sleep apnea machine to [place] before a sleep apnea clinic in [place] will talk to him, Pt has a BMI of 40.4 and PCP will put a referral in for sleep apnea for Pt today, spent 35 mins with Pt with a retail assistant Diabetic foot (HC Code) (HC CODE) 02/07/2019 Assessment & Plan (06/24/2022 9:27 AM EST): The Pt continues to deal with bilateral foot pain and wears a pair of Diabetic shoes with specification ordered by his Minor League Baseball Player Doctor Assessment & Plan (05/31/2021 2:00 PM EST): The Pt continues to deal with bilateral foot pain and needs to get a pair of Diabetic shoes with specification ordered by his Minor League Baseball Player Doctor and will increase Gabapentin from 400 mg PO BID to 800 PO BID Assessment & Plan (01/04/2021 10:02 AM EDT): - recently seen in mid-December by Podiatry- note reviewed Assessment & Plan (10/14/2020 9:29 AM EDT): The Pt continues to deal with bilateral foot pain and needs to get a pair of Diabetic shoes with specification ordered by his Minor League Baseball Player Doctor see below: 08/26/2020 Podiatry Note: Bilateral [...] Also using his neuropathic compounding formula from [employer] as an adjunctive therapy and likes it [...] is working with his Diabetic Specialist at [facility] and has an appointment next week, will increase his Gababentin to 800 mg PO TID and assess effectiveness in one month Assessment & Plan (02/07/2019 6:48 AM EDT): Pt needs a Podiatry appointment due to toe nails need to be cut and Pt needs establish care with a Minor League Baseball Player for his annual diabetic foot care Diabetic eye exam 02/07/2019 Assessment & Plan (06/24/2022 9:29 AM EST): The Pt stated today that he saw his Eye Doctor, unable to see event in [facility] Assessment & Plan (09/18/2020 6:10 PM EDT): Pt has complaints of vision changes and he blew a blood vessel on his sclera, 3 years ago the Pt would see his Retina Doctor who did a lazer every 6 month, Pt needs a retinal eye referral 09/18/2020 Jeovanny Lynn: I put a referral in for the Pt and lately the [facility] has not been given dates for appointments [...] is in need of seeing eye doctor [facility]. Patient can be reached at [phone]. Ms. Rosales can be reached at the same number [phone]. Thank you Deep Assessment & Plan (05/28/2020 [...] needs to call the [facility] [address] [phone] Assessment & Plan (10/14/2020 2:13 PM EDT): [...] (01/04/2019 4:02 PM EDT): Pt needs a Uzbek speaking Nurse to help him manage his [...] -Pt will be called biweekly by the [facility] Nurse to review his FBS finger sticks [...] medications -He has been following with the [facility] team and reports taking all of [...] billing issues. He also was supposed to order picker a Dexa scanner/sensor, but he was [...] (DEXCOM G6 SENSOR) device and scanner Asked Transformation Architect to schedule a 1/2 hour Nurse visit [...] 200-300 average, checks ACHS -Pt has his [facility] appt on 04/21/2022 at 11:30 AM [...] Pt will continues to go to his [facility] appointments to review his Dexcom G6 numbers and make appropriate medication changes -If all that happens then the Pt can also scan before each meal, switch from taking 30 units of prandial insulin to start a Sliding Scale -Will leave note with Pt's Ultrasound Technician that the Pt needs to have Provider use a Pharmacy Clerk due to his poor [place] skills -The Pt has received the Dexcom G6 outpatient coordinator and scanner but still does not [...] Pt will continues to go to his [facility] appointments to review his Dexcom G6 [...] this Pt's care Deep 01/14/2022 Note to eDep Pruitt, From: Angie Mcghee MD Good morning, [...] EDT): -Met with Pt and with our [facility] RN who was able to translate the [...] 190u??bid 2.Novolog 30??before meals + supplementary sliding nesmb347-250-->4u, 200-249-->6u,??250-299-->8u, 300-349-->10u, >350-->12u 3.continue with ??trulicity 4.5 mg weekly, jardiance 25 mg daily and metformin 1000 mg bid 4.contact us in 1 week to report BG 5.Check BS 4X/day. Keep organized log and bring it next time.??Call [facility] for use of Dexcom CGM 6.Hypoglycemia management:??Carry [...] yes ?? Recommendations: #Diabetes: 1. Continue with [id number] 190u bid 2.Novolog 30 before meals + supplementary sliding scale ?150-199-->??4??units ?200-249-->??6??units ?250-299-->??8??units ?300-349-->??10units ?>350-->?12 3.continue with trulicity 4.5 mg weekly, jardiance 25 mg daily and metformin 1000 mg bid 4.contact us in 1 week to report BG 5.Check BS 4X/day. Keep organized log and bring it next time. Call [facility] for use of Dexcom CGM 6.Hypoglycemia management: [...] his painful foot issues -Will talk with [facility] Nurse about the Pt and support systems may not be compliant with taking meds and Insulin on a regular basis -Will work on bring the Pt's A1C down, it has been in the 's for the past year and Pt not wanting to see [facility] or [facility] Diabetic Specialist -Will have to set up [...] the Bariatric Doctor for weight loss -Used Pharmacy Clerk # [id number] -Pt wished he could get his diabetic care restarted at the [facility] -Pt does not want to go to [facility] Diabetic Clinic or the [facility] due to not feeling comfortable [...] Pt needs to be rescheduled with our [facility] Diabetic Clinic with Zena Hines PA, the Pt did not like dealing with [facility] due to not feeling comfortable with the [facility] Providers and has had missed multiple appointments The Pt continues to deal with an elevated A1C, Pt wished he could get his diabetic care restarted at the [facility], will refer today ?? Results for [...] MD sent at 09/30/2021 Regarding: RE: reschedule nnp appointment I think this is his 3rd [...] Ocasio MD at the Diabetes Center at [address] [place] [address], Pt wished he could get his diabetic care restarted at the [facility], Pt advised to go to his [...] LDL 90 01/25/2021 MALCRR 3,278 (H) 09/16/2019 Outpatient/[facility] meds BLOOD GLUCOSE METER (TymphanyUCH VERIO FLEX METER) device dulaglutide (TRULICITY) 4.5 mg/0.5 mL PnIj flash glucose (FREESTYLE ORTEGA 14 DAY) scanning reader FREESTYLE ORTEGA 14 DAY sensor kit insulin aspart (NOVOLOG FLEXPEN INSULIN) 100 unit/mL (3 mL) pen insulin regular human CONCENTRATED 500 units/mL (HUMULIN R U-500, CONC, KWIKPEN) injection pen JARDIANCE 25 mg tablet metFORMIN (GLUCOPHAGE) 1000 mg tablet - continues to see [facility] - recent finger stick readings 350, no symptoms of hyperglycemia - discussed with patient taking medications as prescribed as well as changing diet - recommended to reduce carb intake and simple carbs throughout the day and night and see if fasting glucose improved in morning - plans to see [facility] soon Assessment & Plan (04/23/2021 10:36 AM EST): The Pt continues to work with his [facility] Diabetic Specialist and stated that his Finger sticks range between 98-160, Pt needs to get additional labs to assess kidney fx and his diabetes Assessment & Plan (01/08/2021 1:21 PM EDT): The Pt continues to deal with elevated A1C and sees his Ultrasound Technician on a regular basis Results for DARREL [...] and has a f/u appointment with his Ultrasound Technician on 09/29/2020 08/27/2020 Endocrine referral: Assessment and [...] his blood sugars. Could also consider insulin funeral home associate like pioglitazone at low dose. ?? Discussed [...] Krystle Santos RN Spoke with pharmacist at [place], states if PCP will send scripts for [...] between 7 or 8 and talked through retail assistant [phone] that the Pt has to have [...] to 110 and send message to his heel dipper Isha Carmen APRN??with [facility] Assessment & Plan (05/28/2020 3:01 [...] to 105 and send message to his heel dipper Isha Carmen APRN with [facility] ?? Assessment & Plan (04/08/2020 [...] the care of Isha Carmen APRN with [facility] and was last prescribed insulin [...] - 64 pg/mL 64.2 74 (H) Vitamin W50-Bggljnw Latest Ref Range: 20 - 50 ng/mL [...] Diabetic care will be transferred over to [facility] and he has the following [...] like to speak with his pcp first [phone] (uzbek speaking) Assessment & Plan (11/13/2019 7:10 PM [...] - 22 (calc) 23 (H) eGFR (NON -German) Latest Ref Range: > OR = 60 [...] Pt is currently seeing our Diabetic Specialist CYLINDER SANDER OPERATOR at [facility], talking with CYLINDER SANDER OPERATOR on phone the Pt has developed [...] 10, Pt needs to meet with the [facility] Nurse with the goal to bring his [...] will continue to see Diabetic Clinic at [facility] for additional medication adjustments and will see [...] will continue to see Diabetic Clinic at [facility] and re-evaluate Pt care in one month [...] 6-8 weeks to be seen by his line tester Dr. Newberry. ?? Attending Addendum: I have [...] Plan (09/12/2021 4:18 PM EDT): 08/20/2021 Milton Reevse, PharmD ASSESSMENT/PLAN: -Blood pressure is above goal [...] that he is on this. I contacted [facility] pharmacy and they reported that on [...] call back to Fani Heath PharmD at [phone] 08/04/21 Fani Heath PharmD called Pt Called patient for scheduled pharmacist HTN visit. I was not able to reach patient and LVM requesting a call back. ID [id number] assisted call. Of note, appears patient was [...] Dr. Newberry and should be visible in [employer]. We would like you to please call [...] pain and dyspnea # h/o CVA (NOT UT -- historical charting error) # Dyslipidemia with [...] current doses ?? If he feels his TAYLRO is worsening again, have low threshold to [...] pain and dyspnea # h/o CVA (NOT UT -- historical charting error) # Dyslipidemia with [...] basis by his , will ask our [facility] Nurse to call Pt and verify their [...] basis by his , will ask our [facility] Nurse to call Pt and verify their [...] recent creatinine/potassium from 01/07 stable, recheck in [facility] this week Assessment & Plan (01/04/2021 [...] in one week to manage HTN, used hand grinder 9229, Pt denies experiencing any pain or tightness [...] EST): When the Pt was admitted to [facility] for [facility] they had stopped his Lisinopril [...] medication up weekly, spent 35 min with Pharmacy Clerk 608, will f/u with Pt in one month [...] needs to get all his meds in uzbek and has an appointment on 02/24/2020 02/24/2020 ??3:40 PM Provider Deep Pruitt APRN [facility] Assessment & Plan (02/22/2020 5:19 AM EDT): I see that Losartan help protect the kidneys from damage due to diabetes, I will discontinue the atenolol and start him at Losartan 25 mg and slowly titrate him up and the Pt needs to get all his meds in uzbek and has an appointment on 02/24/2020 02/24/2020 ??3:40 PM Provider Deep Pruitt APRN [facility] Assessment & Plan (03/16/2019 6:10 [...] (calc) 6.9 (H) The ASCVD Risk score (Talladegahenry WOODWARD Jr., et al., 2013) failed to calculate for the following reasons: The patient has a prior UT or stroke diagnosis Assessment & Plan (12/18/2018 [...] to call Pt with results seen below (Uzbek only please) -And let him know that his UTI results were negative and there is no reason for antibiotics 09/08/2021 PCP Note: Pt c/o burning with urination for the past 2 day, will ask Pt to do a urine culture before prescribing an Antibiotic medication used Uzbek interpretor 1132 09/10/2021 PCP Addendum Note: The Pt has [...] the Pt had colonoscopy at [facility] in [facility] and was told to return in a year for further surveillance because he had several polyps removed, the concern is that the Pt had a CVA x 2 in 2017 and need Neuro clearance and the Neuro referral was put in today Assessment & Plan (11/13/2019 7:05 PM EDT): Pt had a Colonoscopy done in [facility] in [facility] one year ago and was told [...] AM EDT): 01/02/2020 the 49 yo male (Uzbek speaking only) with a BMI of 39.6, last A1C Dec 2019 increased to 13.7, in 2017 the Pt had a right sided stroke (minimal residual speech and walking issues) and is working with our Diabetic CYLINDER SANDER OPERATOR Specialist to bring his sugars down, [...] Plan (11/13/2019 7:08 PM EDT): Used a Pharmacy Clerk 1300 for the entire 25 min visit, [...] with Pt in 1 weeks, used a Pharmacy Clerk 3533 throughout the visit -10/23/2019 the Pt again [...] with Pt in 2 weeks, used a Pharmacy Clerk Propio through out the visit Assessment & [...] (H) -Pt will be referred to the [facility] Astronomy Professor to assess if his current diet is [...] Perla Rice RN message to Deep Pruitt CYLINDER SANDER OPERATOR Call was returned to patient and [...] input from his primary care physician and hosiery mender would be helpful. Considerations would include: stopping amlodipine, increasing diuretics, re-assessing labs for kidney function (e.g. is proteinuria worsening), and dietary interventions. Also counseled patient that weight loss would likely be helpful. I think his chemical milling processor can be helpful with managing his midfoot [...] input from his primary care physician and hosiery mender would be helpful. Considerations would include: stopping amlodipine, increasing diuretics, re-assessing labs for kidney function (e.g. is proteinuria worsening), and dietary interventions. Also counseled patient that weight loss would likely be helpful. I think his chemical milling processor can be helpful with managing his midfoot [...] plan for regular follow up with your chemical milling processor, primary care physician, and hosiery mender ?? Follow-up: as needed with me ?? Other interventions: recommend keeping the legs elevated when sitting (try to get feet above the level of the heart to get the fluid to come down; also recommend new pair of custom graduated compression stockings - wear daily - please call [facility] for an appointment to be measured for the new stockings so they fit you well. [facility] [address] [place] [address], [place] [address] , PCP Notes: Will stop Amlodipine 5 mg PO QD and start Pt on Spirolactone 25 mg PO QD and assess in 2 weeks if Spirlactatone needs to be increased to 25 mg BID Will fax to [facility] order for Compression stocking and put contact info in AVS for the Pt to call and arrange for sizing CCM: 10 minutes 12/29/2020 Deep Pruitt APRN Assessment & Plan (06/24/2020 3:44 PM EST): 06/13/2020 the Pt had 2 pairs of Knee high compression stockings ordered and sent to [facility] and the Pt has to call [facility] so he can be measured and then pick them up when they arrive Assessment & Plan (06/13/2020 7:10 AM EST): Pt continues to deal with bilateral lower extremity edema will order Compression sleeves today from [facility] today, Put on lower legs during the day and take off at night, and wash and let dry and put on 2nd pair on the following day for Edema, lower extremity R60.0, will send to [facility] today Assessment & Plan (05/26/2020 5:58 [...] in 2 days at his next appointment Uzbek Interpretor #[id number] CCM: 20 minutes 05/26/2020 Deep [...] MD Department Ambulatory Surgical Specialties - Vascular 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 More than 4 times per year [...] PHQ-2 Total Score 2 02/17/2022 [facility] - Occupational Stress [...] your living situation today? I have a [facility] place to live 05/19/2022 Sex and [...] 9:01 AM EDT Screening for prostate cancer PA PROPHYLAXIS - ADULT Routine 08/10/2021 10:45 AM EDT Encounter for dental exam and cleaning w/o abnormal findings PA BITEWINGS - FOUR RADIOGRAPHC IMAGES Routine 07/05/2021 10:30 AM EST Encounter for dental examination PA PERIODIC ORAL EVALUATION EST PT Routine 07/05/2021 10:30 AM EST Encounter for dental examination Oral frictional keratosis Partially edentulous mandible, unspecified edentulism class Secondary dental caries associated with failed or defective dental faith Dental caries on smooth surface penetrating into [...] Results * (ABNORMAL) POCT HgbA1c, total CPT: 77677 (06/23/2022 4:21 PM EST) Pathologist [facility] Hemoglobin A1C, POC 10.6 4.0 - 6.0 % [facility] Test Lot Number [id number] [facility] Test Lot Exp Date 09/18/22 Date Format: MM/DD/YYYY [facility] Blood specimen (specimen) 06/23/2022 4:21 PM EST Deep Pruitt APRN POINT OF CARE TEST ORDERABL ES Final Result Performing Organization Address [facility] Co de Phone Number [facility] * (ABNORMAL) LDL cholesterol, [...] Comment Performing Lab: ?Site ID: [id number] ?Name: [facility] ?Address: [address] [place] [address], [place] [address] ?Director: Yadira Bowman M.D. Deep Pruitt APRN LAB BLOOD ORDERABLES Final Result Performing Organization Address City/[facility] Co de Phone Number [facility] [address] [place] [address] * (ABNORMAL) Albumin/creatinine panel, urine, random (02/15/2022 2:02 PM EDT) Pathologist [facility] Albumin, Urine, Random 1,885.3 Reference Range Not Established mg/L 02/15/2022 3:42 PM EDT [facility] MEDICINE Creatinine, Urine, Random 60 Reference Range Not Established mg/dL 02/15/2022 3:42 PM EDT [facility]IC[facility] Albumin/Creatin ine Ratio, Urine, Random 3,168.6(H ) <30.0 mg/g Cr 02/15/2022 3:42 PM EDT [facility]IC[facility] Comment: Moderately increased albuminuria (formerly microalbuminuria): ??30-300 mg/g Cr Significantly increased albuminuria (overt albuminuria): ? >300 mg/g Cr Urine Collection / Unknown 02/15/2022 2:02 PM EDT 02/15/2022 2:59 PM EDT Yue Dominguez BOBBIN DISKER URINE ORDERABLES Final Res ult Performing Organization Address City/State/[facility] Co de Phone Number [facility]PART[facility]ORATORY MEDICINE [address] [place] [address] * PSA, total (Q) (09/09/2021 9:01 AM EDT) Pathologist [facility] Prostate Specific Antigen Total 0.44 < OR = 4.00 ng/mL [facility] Comment: The total PSA value from this assay system is standardized against the WHO standard. The test result will be approximately 20% lower when compared to the equimolar-standardized total PSA (Jana [place]). Comparison of serial PSA results should be [...] Comment Performing Lab: ?Site ID: [id number] ?Name: [facility] ?Address: [address] [place] [address], [facility], [place] [address] ?Director: Yadira Bowman M.D. us Deep Pruitt BOBBIN DISKER LAB BLOOD ORDERABLES Final Result [facility] [address] [place] [address], [facility] * Colonoscopy (09/03/2020 10:16 AM EDT) [facility] Colonoscopy [facility] Endoscopy Patient Name: Darrel Bhardwaj ? Procedure Date: 09/03/2020 10:16 AM ?Date of : 1970 Age: 50 ? Admit Type: Outpatient Gender: Male ?CSN #: [id number] Note Status: Finalized ?Procedure Date no Time: [...] bowel preparation was evaluated using the BBPS (Todd ? Bowel Preparation Scale) with scores of: [...] Procedure Code(s): ?? --- Professional --- ? 03527, Colonoscopy, flexible; with biopsy, single or ? multiple Diagnosis Code(s): ?? --- Professional --- ? Z86.010, Personal history of colonic polyps ? D12.0, Benign neoplasm of cecum CPT copyright 2018 [employer]. All rights reserved. The codes documented in this report are preliminary and upon supervisor furnace process review may be revised to meet current [...] In: 10:41:36 AM Scope Out: 10:58:[address] [facility] 09/03/2020 10:1 6 AM EDT Provider Not In System GI PROCEDURE ORDERABLES F inal Result [facility] * Hepatitis C Ab with reflex to HCV PCR (02/06/2020 7:18 AM EDT) Hepatitis C Antibody Negative Negative 02/06/2020 4:21 PM EDT [facility]ORATORY MEDICINE Comment:A negative result do es not exclude HCV infection, since antibodies are not detectable for 4-8 weeks after initial infection, or may not develop in compromised hosts. In high-risk individuals, repeat antibody testing in 2 months and/or HCV RNA PCR should be considered. Blood Venipuncture / Unknown 02/06/2020 7:18 AM EDT 02/06/2020 8:06 AM EDT Jordyn Reinier BOBBIN DISKER LAB BLOOD ORDERABLES Fauzia l Result Performing Organization Address City/[facility] Co de Phone Number [facility] DEPARTMENT OF LABORATORY MEDICINE [address] [place] [address] * HIV 1/2 ag/ab, w/reflexes (Q) (12/10/2018 [...] ?? For additional information please refer to http://education.[facility].com/faq/CMG528 (This link is being provided for informational/ educational purposes only.) The performance of this assay has not been clinically validated in patients less than 2 years old. Blood 12/10/2018 10:3 2 AM EDT 12/10/2018 10:32 AM EDT Carlos Eduardo Joyner MD LAB BLOOD ORDERABLES Fi nal Result [facility] [address] [place] [address] from Last 3 Months or Most Recently Relevant to Health Maintenance Insurance [place] Advance Directives * Full ACLS (Latest Code Status on File) Date Activated Date Inactivated Comments 02/04/2020 9:46 PM 02/07/2020 8:23 PM Question Answer Comments With Whom was the Code Status Discussed? Patient Care Teams Cnp Relationship Specialty Start Date End Date Deep Pruitt APRN PCP - General 05/22/19
--- OUTSIDE RECORDS SUMMARY | 2024-07-24 14:28 | XMS_ITS | Encounter Summary ---
Author Organization [facility] [employer] [facility] and [facility] Address [address] [place] [address] Care Team Providers Care Solar Thermal Technician Name Role Phone Romelia Pruittian Niko LOPEZ Primary Care Provider Encounter Details Date Type Department Care Team (Latest Contact Info) Description 08/10/2021 Transcribed Orders [facility] [address] [place] [address] Taylor Malagon, PSYCHIATRIC CLINICAL NURSE SPECIALIST [address] [place] [address] Stage 3a chronic kidney disease [...] Date Recorded PHQ-2 Total Score 4 07/13/2021 [facility] [...] - 4.5 mg/dL 08/10/2021 10:26 AM EDT [facility] DEPARTMENT OF LABORATORY MEDICINE Blood Venipuncture / Unknown 08/10/2021 9:40 AM EDT 08/10/2021 9:56 AM EDT Taylor Malagon APRN LAB BLOOD ORDERABLES Fauzia guzman Result [facility] DEPARTMENT OF LABORATORY MEDICINE [address] [place] [address] documented in this encounter Visit Diagnoses Diagnosis Stage 3a chronic kidney disease (CKD) (HC Code)- Primary documented in this encounter Additional Health Concerns Infection Onset Date Last Indicated Resolved Time COVID-19 09/29/2021 09/29/2021 10/19/2021 7:19 PM EDT Assessment Noted Time PHQ-9 Depression Total Score: 11 022 2:28 PM EST documented as of this encounter Care Teams Solar Thermal Technician Relationship Specialty Start Date End Date Deep Pruitt APRN PCP - General 05/22/19 documented as of this encounter
--- OUTSIDE RECORDS SUMMARY | 2024-07-24 14:28 | XMS_ITS | Encounter Summary ---
Author Organization [facility] Address [address] [place] [address] Care Team Providers Care Inspector Subassemblies Name Role Phone Romelia Pruittian Niko LOPEZ Primary Care Provider [phone] Encounter Details Date Type Department Care Team (Late st Contact Info) Description 09/06/2021 Scanned Document [facility] [address] [place] [address] External, Provider Social History Tobacco Use Types [...] Recorded PHQ-2 Total Score 2 09/08/2021 [facility] of Occupat ional Health [...] as of this encounter Care Teams Inspector Subassemblies Relationship Specialty Start Date End Date Deep Pruitt APRN PCP - General 05/22/19 documented as of this encounter
--- OUTSIDE RECORDS SUMMARY | 2024-07-24 14:28 | XMS_ITS | Encounter Summary ---
Author Organization [facility] Address [address] [place] [address] Care Team Providers Care Filter Filler Name Role Phone Romelia Pruittian Niko LOPEZ Primary Care Provider Encounter Details Date Type Department Care Team (Late st Contact Info) Description 08/09/2021 Scanned Document [facility] [address] [place] [address] External, Provider Social History Tobacco Use Types [...] documented as of this encounter Care Teams Filter Filler Relationship Specialty Start Date End Date Deep Pruitt APRN PCP - General 05/22/19 documented as of this encounter
--- OUTSIDE RECORDS SUMMARY | 2024-07-24 14:28 | XMS_ITS | Encounter Summary ---
Author Organization [facility] Address [address] [place] [address] Care Team Providers Care Caltrans Equipment Operator Name Role Phone Romelia Pruittian Niko LOPEZ Primary Care Provider [phone] Encounter Details Date Type Department Care Team (Late st Contact Info) Description 09/08/2021 Scanned Document [facility] [address] [place] [address] External, Provider Social History Tobacco Use Types [...] Date Recorded PHQ-2 Total Score 2 09/08/2021 [facility]at [facility] [...] documented as of this encounter Care Teams Caltrans Equipment Operator Relationship Specialty Start Date End Date Deep Pruitt APRN PCP - General 05/22/19 documented as of this encounter
== END 2024-07-24 11:55 | disposition home or self-care (01) ==
LOC: HO.HKA 11:38
PROVIDERS: PCP Student in an Organized Health Care Education/Training Program; Visit Provider Internal Medicine Nephrology
DX: N18.4 Chronic kidney disease, stage 4 (severe) (principal); E11.21 Type 2 diabetes mellitus with diabetic nephropathy; N25.81 Secondary hyperparathyroidism of renal origin; E55.9 Vitamin D deficiency, unspecified; I12.9 Hypertensive chronic kidney disease with stage 1 through stage 4 chronic kidney disease, or unspecified chronic kidney disease
CPT/HCPCS: 99214

== ENCOUNTER → 2024-07-24 11:37 | Outpatient (BNVA) | payer MEDICAID, SELFPAY | PROVIDERS: PCP Student in an Organized Health Care Education/Training Program; Visit Provider Internal Medicine Nephrology | DX: E11.22 Type 2 diabetes mellitus with diabetic chronic kidney disease (principal); I12.9 Hypertensive chronic kidney disease with stage 1 through stage 4 chronic kidney disease, or unspecified chronic kidney disease; N18.4 Chronic kidney disease, stage 4 (severe); E11.21 Type 2 diabetes mellitus with diabetic nephropathy; N25.81 Secondary hyperparathyroidism of renal origin; E55.9 Vitamin D deficiency, unspecified; Z79.84 Long term (current) use of oral hypoglycemic drugs | CPT/HCPCS: 99212 ==

== ENCOUNTER 2024-07-29 11:41 | Outpatient (REF) | payer MEDICAID, SELFPAY | END 2024-07-29 11:42 | disposition home or self-care (01) | LOC: HO.LAB 11:41 | PROVIDERS: PCP Student in an Organized Health Care Education/Training Program; Visit Provider Surgery | DX: D17.9 Benign lipomatous neoplasm, unspecified (principal) | CPT/HCPCS: 11422; 88304; 99202; J2004 ==

== ENCOUNTER 2024-07-29 11:41 | Outpatient (AMB) | payer MEDICAID, SELFPAY ==
--- NOTE | 2024-07-29 11:47 | A.OFFVIS_ITS ---
Vital Signs 07/29/24 11:49 Height 5 ft 9 in Weight 264 lb BMI 39.0 BP 186/84 H Blood Pressure Location Lt brachial Position Sitting Pulse 88 Intake Visit Reasons: Lump on neck, right side Intake Note: Patient new consult for Lump on neck, right side Patient cc: neck lump pain, swelling and discomfort. Commercial Technician Required: Yes Accompanied by: Family/Other Allergies Penicillins [PENICILLINS] Allergy (Intermediate, Verified 07/29/24 11:45) RASH, DIFFICULTY BREATHING Medication List - Last Reconciled 07/29/24 by Handy Phoenix MD acetaminophen 1,000 mg PO Q6H PRN albuterol sulfate 2.5 mg inhalation Q6H PRN aspirin 1 tab PO DAILY atorvastatin 80 mg PO DAILY blood-glucose meter,continuous (Dexcom G7 Parachutist/Combatant Diver Qualified) As directed blood-glucose sensor (Dexcom G7 Sensor device) As directed calcium carbonate (Calcium Antacid) 400 mg PO DAILY carboxymethylcellulose sodium 0.5% (Lubricant Eye Drops) 1 drp ophthalmic (eye) NEEDED carvedilol 25 mg PO BID cholecalciferol (vitamin D3) 125 mcg (2.5 x 50 mcg (2,000 unit)) PO DAILY clonazepam 0.5 mg PO TID divalproex ER (Depakote ER) 1,000 mg PO BEDTIME duloxetine 60 mg PO DAILY empagliflozin (Jardiance) 10 mg PO DAILY furosemide 40 mg PO DAILY gabapentin 600 mg PO DAILY insulin regular hum U-500 conc (Humulin R U-500 (Conc) Insulin Kwikpen) 135 units subcut BEDTIME ketotifen fumarate 0.025%(0.035%) (Eye Itch Relief) 1 drp ophthalmic (eye) BID PRN omega 0-bir-cyk-fish oil 300 mg (120 mg- 180mg)-1,000 mg 2 caps PO BID pantoprazole 40 mg PO DAILY pen needle, diabetic (BD Ultra-Fine Mini Pen Needle) As directed tiotropium bromide 1.25 mcg/actuation (Spiriva Respimat) 2 puffs inhalation DAILY tirzepatide (weight loss) (Zepbound) 2.5 mg (0.5 mL) subcut QWEEK tramadol 50 mg PO Q8H PRN trazodone 150 mg PO BEDTIME PRN ziprasidone HCl (Geodon) 80 mg PO BEDTIME HPI Comments Details: Patient whom I know from the past who presents here with a right supraclavicular soft tissue mass. He has had this several years time. His increasing in size, become more symptomatic. He would like to have removed. He has no such lesions elsewhere. Chart was reviewed and patient evaluate [facility] Medical History (Updated 06/10/24 @ 09:50 by Joy Fry [facility]) HTN (hypertension) Leukocytosis Memory loss Obesity Idiopathic gout of multiple sites GERD (gastroesophageal reflux disease) Hypertensive chronic kidney disease Secondary hyperparathyroidism, renal Sleep apnea Type 2 diabetes mellitus Schizoaffective disorder Chronic pain syndrome Diabetic polyneuropathy Gout Surgical History History of esophagogastroduodenoscopy (EGD) H/O colonoscopy Family History Father Cancer Diabetes Mother Cancer Diabetes Colon cancer Family/Other Cancer Diabetes Social History Household Members: Spouse Housing: House Do you presently have visiting nurse or other home services: Yes Alcohol intake: never Patient Tobacco Use Status: Never used Tobacco service: No Physical Exam Vital Signs: Last Vital Signs Pulse 88 07/29/24 11:49 BP 186/84 H 07/29/24 11:49 BMI result Body Mass Index 39.0 Neck Other: Right supraclavicular fossa demonstrates a roughly 2 x 2 cm soft tissue mass consistent with lipoma Office Procedures Excision Details: Risks, benefits, alternatives of right neck/supraclavicular fossa soft tissue mass/lipoma excision were reviewed with the patient and included but not limited to bleeding, infection, recurrence, numbness, pain, scarring the patient wished to proceed. All questions answered. Consent site. After appropriate positioning, patient underwent 1% lidocaine and Betadine prep and longitudinal incision was made over the mass in question, this was taken on piecemeal fashion consistent with a lipoma. Specimen sent to pathology. Wound was irrigated, secured hemostasis, and closed using running subcuticular 3-0 Vicryl suture followed by Steri-Strips and sterile dressings. Patient tolerated procedure well. 54004-Tyxgfvyo scalp/neck/hands/feet/genitalia 1.1cm-2cm Procedure code (CPT) selection complete Office Meds lidocaine 1 %-epinephrine 1:100,000 injection solution Performing Provider: Handy Phoenix MD Performing Location: [facility] [place] General Surgeons Administered by: Handy Phoenix MD on 07/29/24 12:52 Dose Route Admin Location Dispensed Lot Number Expiration Date [facility] Compounding Technician 10 mL Infiltration 10 mL Assessment & Plan Assessment & Plan (1) Lipoma: Code(s): D17.9 - Benign lipomatous neoplasm, unspecified Category: Surgical Plan: Patient was been given local instructions including ice to the wound periodically, may shower in 2 days removing only outside dressing leaving Steri- Strips and tacked, his analgesics that he has at home already, and no strenuous activities. He will see me as directed or p.r.n. Orders: Orders AMB Excision Today D17.9 - Benign lipomatous neoplasm, unspecified Medications: New lidocaine-epinephrine 1 %-1:100,000 10 mL Infiltration ONCE 30 mL 0RF D17.9 - Benign lipomatous neoplasm, unspecified Coding Level of Care Code New Pt Level 5 (56483) Diagnoses Lipoma D17.9 CPT Codes Scalp/Neck/Hands/Feet/Genetalia - CPT: 80058-Arvmkicw scalp/neck/hands/feet/genitalia 1.1cm-2cm ([id number])
[2024-07-29 11:49] VITALS: BP 186/84; PULSE 88; BMI 39.0
== END 2024-07-29 12:31 | disposition home or self-care (01) ==
LOC: HO.HGS 11:42
PROVIDERS: PCP Student in an Organized Health Care Education/Training Program; Visit Provider Surgery
DX: D17.0 Benign lipomatous neoplasm of skin and subcutaneous tissue of head, face and neck (principal)
CPT/HCPCS: 11422; 99204

== ENCOUNTER 2024-07-30 08:03 | Outpatient (REF) | payer MEDICAID, SELFPAY ==
--- NOTE | ~2024-07-30 | FL_ITS ---
EXAMINATION: XR FLUOROSCOPY UPPER GI SERIES CLINICAL INFORMATION: Obesity, GERD. COMPARISON: None TECHNIQUE: Fluoroscopic air contrast upper GI examination was performed utilizing standard techniques with thin and thick barium and effervescent granules. Numerous spot images were obtained. Several fluoroscopic image hold cine sequences were also obtained. FINDINGS: UPPER GI SERIES: Lateral cine images of the oropharynx and hypopharynx demonstrate normal swallow mechanism with normal epiglottic inversion and soft palate elevation. Minimal laryngeal penetration, without glottic or subglottic aspiration. No nasopharyngeal reflux present. Hypopharyngeal structures appear normal without evidence of mass or diverticulum. There was no significant cricopharyngeal achalasia. Dual and single contrast images of the esophagus demonstrate normal caliber, contour, and mucosal pattern. No evidence of stricture, mass, or ulcerations identified. Esophageal peristalsis is mildly disordered. No evidence of hiatus hernia identified. Mild episodic gastroesophageal reflux was identified during the course of the exam. Dual contrast and single contrast images of the stomach demonstrated somewhat elongated contour. There is diffuse mild gastric rugal fold thickening. Gastric mucosal pattern is normal without evidence of mass, ulceration, or other abnormality. Contrast freely passed into the gastric antrum and duodenal bulb without delay. Single and air-contrast images of the duodenal bulb demonstrate no abnormality. The duodenal sweep has a normal appearance, course, and mucosal fold appearance. Small bowel demonstrates somewhat rapid transit. There is mild diffuse jejunal fold thickening, and mild ileal fold thickening noted, raising the possibility of a malabsorption disorder. FLUOROSCOPY TIME: 3 minutes 54 seconds Number of Spot Images:12 Number of cines obtained: 16 DOSE AREA PRODUCT: 730.2 dGy-m2 FL/FL upper GI w air IMPRESSION: 1. Mild episodic gastroesophageal reflux identified. 2. Mild disordered esophageal motility. 3. No hiatus hernia. 4. Somewhat elongated appearing stomach. Mild gastric rugal fold thickening, suggesting mild gastritis. 5. Mild diffuse jejunal and ileal fold thickening with mildly rapid transit, raising the possibility of malabsorption disorder. Electronically signed by: Go Chance MD 07/30/2024 10:20 AM EDT
--- NOTE | ~2024-07-30 | XR_ITS ---
EXAMINATION: XR CHEST CLINICAL INFORMATION: I10 - Essential (primary) hypertension COMPARISON: 04/03/2024. TECHNIQUE: 2 views of the chest were obtained. FINDINGS: The cardiac, hilar, and mediastinal contours are normal. Mild aortic calcification. Lungs demonstrate mild linear atelectasis or scarring bilateral lower lobes. Lungs otherwise clear. There is no pneumothorax or pleural effusion. There is no focal osseous or soft tissue abnormality. XR/XR chest 2V IMPRESSION: No active pulmonary disease. Electronically signed by: Go Chance MD 07/30/2024 10:22 AM EDT
--- OUTSIDE RECORDS SUMMARY | 2024-07-30 08:23 | XMS_ITS | Encounter Summary ---
Author Organization [employer] [facility] Address [address] [facility] [address] [place] [address] Care Team Providers Care Loom Inspector Name Role Phone Elise Stanford Primary Care Provider [phone] Katrin Santoyo MD Primary Care Pro vider Edison Vieira MD Unavailable [phone] Joe Devi MD Unavailable [phone] Reason for Visit * Reason Onset Date Comments Referral 11/24/2022 Podiatry Encounter Details Date Type Department Care Team (Late st Contact Info) Description 11/24/2022 Telephone [facility] [address] [place] [address] Elise Stanford FNP [address] [place] [address] [place] [address] Referral (Podiatry/) Social History Tobacco Use Types [...] Anne Ocasio - 11/29/2022 9:46 AM EDT Compensation Consulting Manager re-faxed referral to Dr. Smith's office. Compensation Consulting Manager called Dr. Smith's office and confirmed that referral was received. Compensation Consulting Manager attempted to call patient twice to infirm that he may call to schedule his appt but did not answer and voicemail could not be left due to pt not having voicemail setup. Dr. Smith [address] [place] [address] FAX [phone] * Telephone Encounter - [place] Melo - 11/24/2022 9:51 AM EDT Tc from patient requesting status on podiatry referral. Compensation Consulting Manager provided address and phone number and patient stated they told him they don't have a referral or any notes for referral. Patient states he let them know of referral letter and they stated they still need notes to be seen. documented in this encounter Plan of Treatment Upcoming Encounters Date Type Department Care Team ([facility] st Contact Info) Description 08/13/2024 9:45 AM EDT Office Visit [address] [address] 08/22/2024 1:15 PM EDT Office Visit [address] [address] Katrin Santoyo MD [address] [place] [address] documented as of this encounter Visit Diagnoses Not on filedocumented in this encounter Additional Health Concerns Assessment Noted Time PHQ-9 Depression Total Score: 24 11/18/ 023 2:05 PM EDT documented as of this encounter Care Teams Loom Inspector Relationship Specialty Start Date End Date Elise Stanford FNP PCP - General Family Medicine 11/24/22 12/12/22 Katrin Santoyo MD [address] [place] [address] PCP - General Internal Medicine 12/13/22 [place] Vieira MD [address] [place] [address] Pulmonary Disease 04/07/24 Joe Devi MD [address] [facility] 3rd [place] [address] Gastroenterology 04/07/24 Carito Roche DNP [address] [facility], [address] [place] [address] Nephrology 04/07/24 Plastic Logic 04/11/24 documented as of this encounter
--- OUTSIDE RECORDS SUMMARY | 2024-07-30 08:23 | XMS_ITS | Clinical Summary ---
Author Organization [address] [facility] Address [address] [place] [address] Phone Care Team Providers Care Machine Tack Puller Name Role Phone Physician, No Pcp Primary [...] BMP Blood Test (11/07/2023) Pathologist [facility] Annual BMP Blood Test Abstracted [facility] Provider HEALTH MAINTENANCE Final Result * Lipid panel (09/19/2023) Pathologist [facility] Triglycerides 0 mg/dL Comment:No interpretation Cholesterol 0 mg/dL Comment:No interpretation HDL 0 mg/dL Comment:No interpretation LDL Cholesterol 0 mg/dL Comment:No interpretation Blood Venous blood specimen / Unknown Result [facility] Provider LAB BLOOD ORDERABLES Fauzia l Result * Urine Albumin Creatinine Ratio (05/19/2023) Pathologist [facility] Urine Albumin Creatinine Ratio Abstracted [facility] Provider HEALTH MAINTENANCE Final Result * Hemoglobin A1c (05/17/2023) Hemoglobin A1C 0.0 % Comment:No interpretation Blood Venous blood specimen / Unknown Result [facility] Provider LAB BLOOD ORDERABLES Fauzia l Result * HIV Screening (12/06/2022) HIV Screening Abstracted Result [facility] Provider HEALTH MAINTENANCE Final Result * Hepatitis C Screening (12/06/2022) Hepatitis C Screening Abstracted [facility] Provider HEALTH MAINTENANCE Final Result from Last 3 Months or Most Recently Relevant to Health Maintenance Insurance [place] [employer] Care Teams Machine Tack Puller Relationship Specialty Start Date End Date Physician, No Pcp PCP - General 04/08/24
--- OUTSIDE RECORDS SUMMARY | 2024-07-30 08:23 | XMS_ITS | Encounter Summary ---
Author Organization [employer] Address [address] [facility] 7t [place] [address] Care Team Providers Care Superintendent Menagerie Name Role Phone Elise Stanford JEWELRY APPRAISER Primary Care Provider [phone] Katrin Santoyo MD Primary Care Pro vider Edison Vieira MD Unavailable [phone] Joe Devi MD Unavailable [phone] Encounter Details Date Type Department Care Team (Late st Contact Info) Description 12/06/2022 Telephone [facility] MEDICINE [address] [place] [address] Susan Manzano LPN Social History Tobacco Use [...] glucose of 411 today. Call placed via [employer] hat presser [phone] patient updated that BG this morning elevated. [...] Description 08/13/2024 9:45 AM EDT Office Visit [facility] MEDICINE [address] [place] [address] 08/22/2024 1:15 PM EDT Office Visit [facility] MEDICINE [address] [place] [address] Katrin Santoyo MD [address] [place] [address] documented as of this encounter Visit Diagnoses Not on filedocumented in this encounter Additional Health Concerns Assessment Noted Time PHQ-9 Depression Total Score: 24 023 2:05 PM EDT documented as of this encounter Care Teams Superintendent Menagerie Relationship Specialty Start Date End Date Elise Stanford FNP PCP - General Family Medicine 11/24/22 12/12/22 Katrin Santoyo MD [address] [place] [address] PCP - General Internal Medicine 12/13/22 Edison Vieira MD 5 [place] [address] Pulmonary Disease 04/07/24 Joe Devi MD 11 [facility] 3rd [place] [address] Gastroenterology 04/07/24 Carito Roche DNP 10 [facility], [address] [place] [address] Nephrology 04/07/24 [employer] 04/11/24 documented as of this encounter
--- OUTSIDE RECORDS SUMMARY | 2024-07-30 08:23 | XMS_ITS | Encounter Summary ---
Author Organization [employer] Address [address] [facility] [address] 7t [place] [address] Care Team Providers Care Cobol Application Developer Name Role Phone Katrin Santoyo MD Primary Care Pro vider Edison Vieira MD Unavailable [phone] Joe Devi MD Unavailable [phone] Encounter Details Date Type Department Care Team (Late st Contact Info) Description 07/23/2024 Orders Only [facility] External Provider, [facility] Social History Tobacco Use Types Packs/Day [...] 9:45 AM EDT Office Visit [facility] MEDICINE [address] [place] [address] [phone] 08/22/2024 1:15 PM EDT Office Visit [facility] MEDICINE [address] [place] [address] [phone] Katrin Santoyo MD [address] [place] [address] [phone] documented as of this encounter Goals Goal [...] EDT Narrative 07/23/2024 9:23 AM EDT ? [facility] ?[address] ?[place] [address] ? Ultrasound Report ? Signed ? Patient: Bhardwaj Sebastian,Darrel ?MR#: [id number] ?? [id number] ? : 1970 ?Acct:[id number] ? Age/Sex: 54 / M ?ADM Date: 07/23/24 ? Loc: HO.US ? Attending Dr: Chuy Mcmanus MD ? Ordering Physician: Chuy Mcmanus MD ?? Date of Service: 07/23/24 ?? Procedure(s): US abdomen comp w elastography ?? Accession Number(s): [id number] ? cc: Katrin Santoyo MD; Chuy Mcmanus [...] DD/ 0845 ? TD/TT: 07/23/24 0904 ? Pocket Stitcher: ? Procedure Note Pato, Image - 07/23/2024 [place] [address] Ultrasound Report Signed Patient: Darrel HaganMR#: [id number] : 1970Acct:[id number] Age/Sex: 54 / MADM Date: 07/23/24 Loc: HO.US Attending Dr: Chuy Mcmanus MD Ordering Physician: Chuy Mcmanus MD Date of Service: 07/23/24 Procedure(s): US abdomen comp w elastography Accession Number(s): [id number] cc: Katrin Santoyo MD; Chuy Mcmanus MD [...] 07/23/24 0920 DD/ 0845 TD/TT: 07/23/24 0904 Pocket St[employer]cher: [facility] External Provider IMG US PROCEDURES Final Result documented in this encounter Visit Diagnoses Not on filedocumented in this encounter Additional Health Concerns Assessment Noted Time PHQ-9 Depression Total Score: 4 10/31/19 24 10:32 AM EDT documented as of this encounter Care Teams Cobol Application Developer Relationship Specialty Start Date End Date Katrin Santoyo MD [address] [place] [address] PCP - General Internal Medicine 12/13/22 Edison Vieira MD [address] [place] [address] Pulmonary Disease 04/07/24 Joe Devi MD [address] [place] [address] 3rd [place] [address] Gastroenterology 04/07/24 Carito Roche DNP [address] [place] [address], [address] [place] [address] Nephrology 04/07/24 [employer] 04/11/24 documented as of this encounter
--- OUTSIDE RECORDS SUMMARY | 2024-07-30 08:23 | XMS_ITS | Clinical Summary ---
Author Organization [facility] Address [address] [facility] [address] [place] [address] Phone Care Team Providers Care Contract Paralegal Name Role Phone Katrin Brumfield Primary Care [...] 4 12/04/19 25 Active ergocalciferol 1.25 MG (15544 UT) capsule Take 1 capsule (50,000 Units [...] continue current mgt - Avoid NSAIDs, tart rcuz juice - 3+ protein on UA from [...] (01/25/2023): information and pathology of colonospcy in [facility] 09-09-2020 note Asthma 01/06/2023 01/25/2023 [...] AM with Arben Fountain DPM at the [facility] -Will f/u with Pt [...] (see MRI of Brain from 2017 under [facility] Multimedia -Significant deficits on neurologic exam Memory loss and Left handed weakness -Imaging and prior evaluation -Current blood thinning agents is aspirin -Potential details to include, when relevant: poor GAIT, uses a walker to get around -How the diagnosis was made: Pt lived in [facility] at the time, Under Multimedia in [facility] see specific file at specific date [id number] Image MRI Result [facility] - MRI BRAIN CVA -09/25/2016 [id number] Image Evaluation [facility]- Left handed weakness note - 02/20/2017 [...] 2019, the Pt needs to call the [facility] [address] [place], [place] [phone] Diabetic foot 02/07/2019 01/25/2023 01/25/2023 Overview (01/25/2023): Last Assessment & Plan: The Pt continues to deal with bilateral foot pain and wears a pair of Diabetic shoes with specification ordered by his Packaging Operator Doctor Patient encounter status 02/07/2019 01/25/2023 [...] -Pt will be called biweekly by the [facility] Nurse to review his FBS finger sticks [...] medications -He has been following with the [place] [facility] team and reports taking all of [...] decided to move [place] back [place] area due to being closer to family [...] , 03/24/2022, Additional history exists [place] Care Teams Contract Paralegal Relationship Specialty Start Date End Date Katrin Brumfield [address] [place] [address] PCP - General 04/17/23
--- OUTSIDE RECORDS SUMMARY | 2024-07-30 08:23 | XMS_ITS | Encounter Summary ---
Author Organization [employer] Address 75 [facility] 7t [place] [address] Care Team Providers Care Snubber Name Role Phone Katrin Santoyo MD Primary Care Pro vider Edison Vieira MD Unavailable [phone] Joe Devi MD Unavailable [phone] Reason for Visit * Reason Comments Med Refill Encounter Details Date Type Department Care Team (Late st Contact Info) Description 01/02/2023 Refill [facility] MEDICINE [address] [place] [address] Elise Stanford FNP [address] [place] [address] Dept [place] [address] Hemorrhoids, unspecified hemorrhoid type Social History Tobacco [...] Office Visit [facility] MEDICINE [address] [place] [phone] 08/22/2024 1:15 PM EDT Office Visit [facility] MEDICINE [address] [place] [address] Katrin Santoyo MD [address] [place] [address] documented as of this encounter Goals Goal [...] documented as of this encounter Care Teams Snubber Relationship Specialty Start Date End Date Katrin Santoyo MD [address] [place] [address] PCP - General Internal Medicine 12/13/22 Edison Vieira MD 5 [place] [address] Pulmonary Disease 04/07/24 Joe Devi MD 11 [facility] 3rd [place] [address] Gastroenterology 04/07/24 Carito Roche DNP 10 [facility], [address] [place] [address] Nephrology 04/07/24 [employer] 04/11/24 documented as of this encounter
--- OUTSIDE RECORDS SUMMARY | 2024-07-30 08:24 | XMS_ITS | Encounter Summary ---
Author Organization [employer] Address 75 [facility] 7t [place] [address] Care Team Providers Care Machine Stemmer Name Role Phone Katrin Santoyo MD Primary Care Pro vider Edison Vieira MD Unavailable [phone] Joe Devi MD Unavailable [phone] Reason for Referral * Consultation (Routine) - Authorized Specialty Diagnoses / Procedures Referred By Contac t Referred To Contact General Surgery Diagnoses Lipoma of other specified sites Katrin Leroy MD [address] [place] [address] Phone: tel: fax: [facility] General Surgery [address] [place] [phone] Phone: tel: fax: Referral ID Status Reason Start Date Expiration Date Visits Requested Visits Authorized [id number] Authorized Specialty Services Required 07/10/2024 07/10/2025 12 12 Encounter Details Date Type Department Care Team (Late st Contact Info) Description 07/10/2024 2:00 PM EST Office Visit [facility] [address] [place] [address] [phone] Katrin Leroy MD [address] [place] [address] [phone] Lipoma of other specified sites (Primary Dx); [...] phosphatase elevation Secondary dental caries Fractured dental pentecostalism without loss of material Right foot pain [...] MINI PEN NEEDLES 31G X 5 MM [facility] Use as instructed 100 each 11 Blood Glucose Monitoring Suppl (Campanja [place] Lite) w/Device kit Use to test blood [...] Continuous Blood Gluc Sensor (Dexcom G7 Sensor) [facility] Dextromethorphan-guaiFENesin (Mucinex DM) 30-600 MG tablet sustained-release [...] capsule 1 ergocalciferol (Vitamin D-2) 1.25 MG (26255 UT) capsule Take 1 capsule by mouth. [...] hours on and 12 hours off Nebulizers [facility] Use nebulizer as instructed 1 each 0 [...] Description 08/13/2024 9:45 AM EDT Office Visit [address] [address] 08/22/2024 1:15 PM EDT Office Visit [address] [address] Katrin Santoyo MD [address] [place] [address] Scheduled Referrals Name Type Priority Associated Diagnoses [...] as of this encounter Care Teams Machine Stemmer Relationship Specialty Start Date End Date Katrin Santoyo MD [address] [place] [address] PCP - General Internal Medicine 12/13/22 Edison Vieira MD [address] [place] [address] Pulmonary Disease 04/07/24 Joe Devi MD [address] 3rd [place] [address] Gastroenterology 04/07/24 Carito Roche DNP [address], [address] [place] [address] Nephrology 04/07/24 [facility] 04/11/24 documented as of this encounter
--- OUTSIDE RECORDS SUMMARY | 2024-07-30 08:24 | XMS_ITS | Encounter Summary ---
Author Organization [employer] Address 75 [facility] 7t [place] [address] Care Team Providers Care Wash House Worker Name Role Phone Elise Stanford SKIP MINER Primary Care Provider [phone] Katrin Santoyo MD Primary Care Pro vider Edison Vieira MD Unavailable [phone] Joe Devi MD Unavailable [phone] Encounter Details Date Type Department Care Team (Late st Contact Info) Description 12/06/2022 Telephone [facility] MEDICINE [address] [place] [address] Susan Manzano LPN Social History Tobacco Use [...] Critical result line call from [place] with [facility]. Patient glucose reported as 411 today. Triage call to follow with patient. Please update PCP with critical result. documented in this encounter Plan of Treatment Upcoming Encounters Date Type Department Care Team (Late st Contact Info) Description 08/13/2024 9:45 AM EDT Office Visit [facility] MEDICINE [address] [place] [address] 08/22/2024 1:15 PM EDT Office Visit [address] [address] Katrin Santoyo MD [address] [place] [address] documented as of this encounter Visit Diagnoses Not on filedocumented in this encounter Additional Health Concerns Assessment Noted Time PHQ-9 Depression Total Score: 24 023 2:05 PM EDT documented as of this encounter Care Teams Wash House Worker Relationship Specialty Start Date End Date Elise Stanford FNP PCP - General Family Medicine 11/24/22 12/12/22 Katrin Santoyo MD [address] [place] [address] PCP - General Internal Medicine 12/13/22 Edison Vieira MD 5 [place] [address] Pulmonary Disease 04/07/24 Joe Devi MD 11 [facility] 3rd [place] [address] Gastroenterology 04/07/24 Carito Roche DNP 10 [facility], [address] [place] [address] Nephrology 04/07/24 [employer] 04/11/24 documented as of this encounter
--- OUTSIDE RECORDS SUMMARY | 2024-07-30 08:24 | XMS_ITS | Encounter Summary ---
Author Organization [facility] Address 75 [facility] 7t [place] [address] Care Team Providers Care Histological Illustrator Name Role Phone Elise Stanford Primary Care Provider [phone] Katrin Santoyo MD Primary Care Pro vider Edison Vieira MD Unavailable [phone] Joe Devi MD Unavailable [phone] Encounter Details Date Type Department Care Team (Latest Contact Info) Description 09/04/2018 Abstract [facility] CONVERSIONS Dental, Provider, DDS Social History [...] 9:45 AM EDT Office Visit [facility] MEDICINE [address] [place] [address] 08/22/2024 1:15 PM EDT Office Visit [facility] MEDICINE [address] [place] [address] [phone] Katrin Santoyo MD [address] [place] [address] documented as of this encounter Visit Diagnoses Not on filedocumented in this encounter Care Teams Histological Illustrator Relationship Specialty Start Date End Date Elise Stanford FNP PCP - General Family Medicine 11/24/22 12/12/22 Katrin Santoyo MD [address] [place] [address] PCP - General Internal Medicine 12/13/22 Edison Vieira MD 5 [place] [address] Pulmonary Disease 04/07/24 Joe Devi MD 11 [facility] 3rd [place] [address] Gastroenterology 04/07/24 Carito Roche DNP 10 [facility], [address] [place] [address] Nephrology 04/07/24 [employer] 04/11/24 documented as of this encounter
--- OUTSIDE RECORDS SUMMARY | 2024-07-30 08:25 | XMS_ITS | Encounter Summary ---
Author Organization [employer] Address [address] [facility] [address] 7t [place] [address] Care Team Providers Care Fur Drummer Name Role Phone Katrin Santoyo MD Primary Care Pro vider Edison Vieira MD Unavailable [phone] Joe Devi MD Unavailable [phone] Reason for Visit * Reason Comments Med Refill Encounter Details Date Type Department Care Team (Late st Contact Info) Description 07/10/2024 Refill [facility] [address] [place], [place] [phone] June Jarvis ANP [address] [place], [place] [phone] Gout due to renal impairment, unspecified chronicity, [...] Description 08/13/2024 9:45 AM EDT Office Visit [facility] MEDICINE [address] [place] [address] 08/22/2024 1:15 PM EDT Office Visit [facility] MEDICINE [address] [place] [address] Katrin Santoyo MD [address] [place] [address] documented as of this encounter Goals Goal [...] as of this encounter Care Teams Fur Drummer Relationship Specialty Start Date End Date Katrin Santoyo MD [address] [place] [address] PCP - General Internal Medicine 12/13/22 Edison Vieira MD 5 [place] [address] Pulmonary Disease 04/07/24 Joe Devi MD [address] [facility] 3rd [place] [address] Gastroenterology 04/07/24 Carito Roche DNP [address] [facility], [address] [place] [address] Nephrology 04/07/24 [employer] 04/11/24 documented as of this encounter
--- OUTSIDE RECORDS SUMMARY | 2024-07-30 08:25 | XMS_ITS | Encounter Summary ---
Author Organization [email or web address] Address [address] [facility] [address] 7t [place] [address] Care Team Providers Care Fire Lookout Name Role Phone Katrin Santoyo MD Primary Care Pro vider Edison Vieira MD Unavailable [phone] Joe Devi MD Unavailable [phone] Encounter Details Date Type Department Care [...] t he electric, gas, oil or water [facility] threatened to shut off services in your [...] Visit [facility] MEDICINE [address] [place] [address] [phone] 08/22/2024 1:15 PM EDT Office Visit [facility] MEDICINE [address] [place] [address] Katrin Santoyo MD [address] [place] [address] documented as of this encounter Goals Goal [...] as of this encounter Care Teams Fire Lookout Relationship Specialty Start Date End Date Katrin Santoyo MD [address] [place] [address] PCP - General Internal Medicine 12/13/22 Edison Vieira MD [address] [place] [address] Pulmonary Disease 04/07/24 Joe Devi MD [address] 3rd [place] [address] Gastroenterology 04/07/24 Carito Roche DNP [address], [address] [place] [address] Nephrology 04/07/24 [employer] 04/11/24 documented as of this encounter
--- OUTSIDE RECORDS SUMMARY | 2024-07-30 08:25 | XMS_ITS | Clinical Summary ---
Author Organization [employer] Address [address] [facility] [address] [place] [address] Care Team Providers Care Hiv Prevention Specialist Name Role Phone Katrin Santoyo MD Primary Care Pro vider Edison Vieira MD Unavailable [phone] Joe Devi MD Unavailable Allergies Active Allergy Reactions Criticality Noted Date Comments Amlodipine Swelling 03/28/2021 Other reaction(s): Edema Pt develops lower leg swelling Pt develops lower leg swelling Penicillin G Angioedema 12/09/2022 Penicillins Itching Medium 12/10/2018 Medications ziprasidone (Geodon) 80 MG capsule 08/10/19 23 Active traZODone (Desyrel) 150 MG tablet Take 1 to 2 tablets by mouth at bedtime as needed 08/10/19 23 Active HumuLIN R U-500 KWIKPEN 500 UNIT/ML CONCENTRATED injection Inject 135 units under the skin three times daily with meals 10/29/19 23 Active Continuous Blood Gluc Sensor (Dexcom G7 Sensor) [facility] [place] 09/15/19 23 Active DULoxetine (Cymbalta) [address] capsuleIndicati ons: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 Take 1 capsule (60 mg) by mouth in the morning. 90 capsule 1 11/19/19 23 Active Ventolin HFA 108 (90 Base) MCG/ACT inhalerIndicati ons:Moderate persistent asthma without complication Inhale 2 puffs every 4 (four) hours if needed for wheezing. 18 g 3 11/19/19 23 Active clonazePAM (KlonoPIN) 0.5 MG tablet 1 tab TID 11/19/19 23 Active divalproex (Depakote ER) 500 MG 24 hr tablet Take 2 tablets by mouth at bedtime 12/13/19 Active DULoxetine (Cymbalta) [address] capsule TAKE 1 CAPSULE BY MOUTH EVERY DAY IN THE EVENING 02/28/20 23 Active Blood Glucose Monitoring Suppl (ViVex Biomedical [place] Lite) w/Device kitIndications: Type 2 diabetes mellitus with diabetic nephropathy, with long-term current use of insulin ([facility]) Use to test blood sugar bid dx dm 1 kit 04/04/20 Active calcium carbonate (Tums) 500 MG chewable tabletIndicatio ns:Elevated parathyroid hormone Chew 2 tablets (1,000 mg) Once per day. 180 tablet 09/19/19 24 2024 Active cholecalciferol (Vitamin D-3) 50 MCG (2000 UT) tabletIndicatio ns:Elevated parathyroid hormone Take 1 tablet (50 mcg) by mouth Once per day. 90 tablet 1 09/19/19 24 2024 Active capsaicin (Capzasin-HP) 0.1 % creamIndication s:Chronic radicular lumbar pain Apply thin layer by topical route up to 4 times daily as needed for pain. 45 g 3 10/17/19 24 Active glucose 4 g chewable tablet Chew 4 tablets (16 g) if needed for low blood sugar. 50 tablet 2 10/31/19 24 2024 Active omega-3 acid ethyl esters (Lovaza) 1 g capsule Take 2 capsules (2 g) by mouth 2 times daily. 120 capsule 11 10/31/19 24 Active amLODIPine (Norvasc) 5 MG tablet TAKE 1 TABLET BY MOUTH EVERY DAY 90 tablet 1 11/30/19 24 Active Alpha-Lipoic Acid 600 MG capsule TAKE 1 CAPSULE BY MOUTH EVERY DAY 30 capsule 5 12/25/19 24 Active Ketotifen Fumarate 0.035 % solution PLACE 1 DROP INTO THE AFFECTED EYE(S) TWICE DAILY NEEDED FOR ALLERGIES 5 mL 1 02/21/20 24 Active ammonium lactate (Lac-Hydrin) 12 % lotion Apply 1 Application. topically Once per day. To feet 02/01/20 24 Active ergocalciferol (Vitamin D-2) 1.25 MG (16225 UT) capsule Take 1 capsule by mouth. Every Monday and 12/04/19 24 Active lidocaine (Lidoderm) 5 % patch Apply 1 patch topically Once per day. 12 hours on and 12 hours off 02/01/20 Active SSD 1 % cream Apply 1 Application. topically Once per day. 02/15/20 Active FreeStyle lancetsIndicati ons:Type 2 diabetes mellitus with diabetic nephropathy, with long-term current use of insulin ([facility]) 1 each by Other route before breakfast, before lunch, before evening meal, and at bedtime. Use bid, dx type 2 diabetes 100 each 02/27/20 Active Alcohol Swabs (B-D SINGLE USE SWABS REGULAR) pads Apply 1 Units topically 4 times daily. 100 each 11 02/27/20 Active B-D UF III MINI PEN NEEDLES 31G X 5 MM misc Use as instructed 100 each 02/27/20 Active FREESTYLE LITE test strip Use to test blood sugar as directed 100 each 11 02/27/20 Active carvedilol (Coreg) 25 MG tablet Take by mouth with breakfast and with evening meal. 180 tablet 1 02/27/20 Active albuterol (2.5 MG/3ML) 0.083% nebulizer solutionIndicat ions:Moderate persistent asthma without complication Take 3 mL (2.5 mg) by nebulization every 4 (four) hours if needed for wheezing. 75 mL 3 03/13/20 24 2024 Active fluticasone (Flonase) 50 MCG/ACT nasal sprayIndication s:Nasal congestion Administer 1-2 sprays into each nostril Once per day. Shake gently. Before first use, prime pump. After use, clean tip and replace cap. 16 g 03/13/20 24 2024 Active furosemide (Lasix) 40 MG tabletIndicatio ns:Acute kidney injury superimposed on CKD ([facility]) ([facility]),Prima ry hypertension Take 1 tablet (40 mg) by mouth Once per day. 90 tablet 04/07/20 24 2024 Active Jardiance 10 MG Take 1 tablet (10 mg) by mouth Once per day. 90 tablet 04/18/20 Active gabapentin (Neurontin) 600 MG tablet TAKE 1 TABLET BY MOUTH EVERY MORNING AND TAKE 1/2 TABLET BY MOUTH EVERY EVENING 45 tablet 2 04/26/20 Active FT Lubricant Eye Drops 0.5 % ophthalmic solution INSTILL 1 DROP IN EACH EYE NEEDED DRY EYES 30 each 1 05/13/19 25 Active traMADol (Ultram) 50 MG tabletIndicatio ns:Chronic radicular lumbar pain TAKE 1 TABLET BY MOUTH EVERY 8 HOURS NEEDED SEVERE PAIN FOR UP TO 28 DAYS 84 tablet 05/17/19 25 Active Advair HFA 230-21 MCG/ACT inhalerIndicati ons:Moderate persistent asthma without complication INHALE 2 PUFFS BY MOUTH TWICE DAILY IN THE MORNING AND AT BEDTIME, RINSE MOUTH AFTER USING. 12 g 3 06/21/19 25 Active Spiriva Respimat 1.25 MCG/ACT inhalerIndicati ons:Moderate persistent asthma without complication INHALE 2 PUFFS BY MOUTH EVERY DAY IN THE MORNING 4 g 3 06/21/19 25 Active Aspirin Low Dose 81 MG chewable tablet CHEW 1 TABLET BY MOUTH ONCE DAILY EVERY MORNING 90 tablet 1 06/27/19 25 Active ezetimibe (Zetia) 10 MG tablet TAKE 1 TABLET BY MOUTH EVERY DAY IN THE MORNING 90 tablet 1 06/27/19 25 Active Dextromethorpha n-guaiFENesin (Mucinex DM) 30-600 MG tablet sustained-relea se 12 hour Use 1 tab TID 28 tablet 06/26/19 25 Active Nebulizers [facility] [place] Use nebulizer as instructed 1 each 06/26/19 25 Active Respiratory Therapy Supplies (Nebulizer/Tubi ng/Mouthpiece) kit To be used with Nebulizer 1 kit 06/26/19 25 Active febuxostat (Uloric) 40 MG tablet TAKE 1 TABLET BY MOUTH ONCE DAILY 90 tablet 06/26/19 25 Active Diclofenac Sodium 1 % gelIndications: Chronic radicular lumbar pain APPLY A THIN LAYER (2 GRAMS) TOPICALLY TO AFFECTED AREA(S) THREE TIMES DAILY NEEDED FOR PAIN 100 g 1 06/28/19 25 Active atorvastatin (Lipitor) 80 MG tablet TAKE 1 TABLET BY MOUTH EVERY DAY 90 tablet 1 07/03/19 25 Active atorvastatin (Lipitor) 80 MG tablet TAKE 1 TABLET BY MOUTH EVERY DAY 90 tablet 1 11/30/19 24 2024 Discontinued naproxen (Naprosyn) 500 MG tablet Take 500 mg by mouth 2 times daily. 04/03/20 24 2024 Discontinued oseltamivir (Tamiflu) 75 MG capsule Take 1 capsule (75 mg) by mouth 2 times daily for 5 days. 10 capsule 06/26/19 25 2024 predniSONE (Deltasone) 10 MG tabletIndicatio ns:Acute [...] per day for 2 days. 30 tablet 07/11/19 25 2024 doxycycline (Vibra-Tabs) 100 MG tabletIndicatio ns:Burn Take 1 tablet (100 mg) by mouth 2 times daily for 7 days. Take with a full glass of water and do not lie down for at least 30 minutes after. 14 tablet 07/11/19 25 2024 loperamide (Imodium A-D) 2 MG tablet Take 1-2 tablets (2-4 mg) by mouth if needed in the morning, at noon, in the evening, and at bedtime for diarrhea for up to 10 days. 30 tablet 07/18/19 25 2024 Active Problems Problem Noted Date Diagnosed Date [...] PRN Indication: chronic radicular lumbar pain Last FINANCIAL PROFESSIONAL Agreement: 04/02/24 Chronic respiratory failure with hypoxia 024 On home oxygen therapy 02/02/2024 Assessment & Plan (04/07/2024 2:01 PM EST): - Continues on 2L oxygen - Followed by [facility] Pulm - Dr. Vieira Chest pressure 11/14/2023 [...] lesions. Secondary dental caries 10/23/2023 Fractured dental gnosticist without loss of mat erial 10/23/2023 Alkaline [...] chart review, appears as though following with Truong Masters with last visit/encounter May 2024. - If not actively following with outside specialist, would be a good candidate for CDTM program Assessment & Plan (06/22/2023 12:26 AM EST): -A1C 11.2 -Check blood sugar 1-2 hours after every meal. -Continue use of glucose gel PRN. -Follow up with Truong Masters 2023. Chronic radicular lumbar pain 01/23/2023 [...] of multiple topical analgesics after discussion with [facility] Pharmacist - meds sent to pharmacy [...] 2022, f/u appt 01/2023 Dental: Refer pt [facility] on 12/13/22 Moderate persistent asthma 11/07/2022 Overview (11/07/2022): -The Pt saw Pulmonology in [place] [id number]/21/2021 -stable with the use of Advair and [...] Will focus on improving diabetic control Discuss assistant health educator referral at next visit F/u 1 [...] (04/07/2024 2:05 PM EST): - Following with [facility] - [facility] Carito Roche - Plan for upcoming renal biopsy [...] mmHg, Excellent response to BPAP S on 21/02 cm. - Following with [facility] Pulmonology - Dr. Vieira - Encouraged to follow up with specialist regarding DME order and new sleep study PRN Chronic post-traumatic stress disorder (PTSD) Need for home health care 01/01/2019 Overview (11/07/2022): Pt is still in the process of establishing a Visiting Nurse for home care to help manage his multiple medications Hyperlipidemia associated with type 2 diabetes jorge doyle 12/10/2018 Overview (11/07/2022): - LDL 90 01/25/2021 [...] told him that it is not a long filler cigar roller machine med. He will fu w PCP next week. Use heat to affected area Diabetes mellitus with diabetic nephropathy 12/09/2022 12/13/2022 History of colonoscopy 12/09/202201/23 Overview (12/09/2022): information and pathology of colonospcy in [facility] 09-09-2020 note Hyperlipidemia due to type 2 diabetes mellitus ([facility]) 12/09/2022 01/23/2023 Abnormal gait 12/09/2022 01/23/2023 Overview [...] Department Care Team Description 07/23/2024 Orders Only [facility] External Provider, [facility] 07/19/2024 Population Health Risk Score [facility] ([facility]) Department [address] [place] [phone] Provider, Population Health Generic 07/17/2024 5:00 PM EDT Office Visit [facility] [address] [place] [address] [phone] Cleo Reynoso, HAYLEE Diarrhea, unspecified type (Primary Dx) 07/16/2024 9:45 AM EDT Office Visit [facility] [address] [place] [address] [phone] Moriah Herbert, HAYLEE Chronic radicular lumbar pain (Primary Dx); Long-term current use of opiate analgesic; Gout involving toe of left foot, unspecified cause, unspecified chronicity; Type 2 diabetes mellitus with stage 3 chronic kidney disease, with long-term current use of insulin, unspecified whether stage 3a or 3b CKD ([facility]) 07/16/2024 Travel 07/10/2024 2:00 PM EST Office Visit [facility] [address] [place] [address] [phone] Katrin Leroy MD Lipoma of other specified sites (Primary Dx); Acute gout of left foot, unspecified cause; Primary hypertension; Burn 07/10/2024 Refill [facility] [address] [place] [address] [phone] June Jarvis ANP Gout due to renal impairment, unspecified chronicity, unspecified site 07/03/2024 Travel 07/03/2024 Telephone [facility] [address] [place], [place] [phone] McMann, Gabriela, RN r/s chronic pain group 07/03/2024 Refill [facility] [address] [place] [address] [phone] Katrin Santoyo MD 07/02/2024 Travel 2024 11:20 AM EST Office Visit [facility] [address] [place] [address] [phone] Dhara Cardenas MD Acute bronchitis, unspecified organism (Primary Dx); Influenza A 2024 Telephone [facility] [address] [place] [address] [phone] Katrin Santoyo MD Med Refill 2024 Refill [facility] [address] [place] [address] [phone] Katrin Santoyo MD 06/25/2024 Refill [facility] [address] [place] [address] [phone] Katrin Santoyo MD 06/21/2024 Refill [facility] [address] [place] [address] Katrin Santoyo MD Moderate persistent asthma without complication 06/11/2024 Telephone [facility] [address] [place] [address] [phone] Emili Cordero RN 06/10/2024 Telephone [facility] [address] [place] [address] [phone] Shirin Albarran MD No Show 06/06/2024 Telephone [facility] [address] [place] [address] [phone] Katrin Santoyo MD FYI 06/06/2024 Telephone [facility] [address] [place] [address] [phone] Katrin Santoyo MD Nurse Triage 06/05/2024 Telephone [facility] [address] [place] [address] Gabriela Rea, CASIE Error (VOID this visit) 05/30/2024 Telephone [facility] [address] [place] [address] [phone] Katrin Santoyo MD Nurse Triage 05/22/2024 Telephone [facility] [address] [place] [address] Katrin Santoyo MD FYI 05/17/2024 Refill [facility] [address] [place] [address] Moriah Herbert, SSN/SSBN WEAPONS EQUIPMENT OPERATOR Chronic radicular lumbar pain 05/17/2024 Refill [facility] [address] [place] [address] Shanna Henao MD Chronic radicular lumbar pain 05/12/2024 Refill [facility] [address] [place] [address] Katrin Santoyo MD from Last 3 Months [...] Description 08/13/2024 9:45 AM EDT Office Visit [facility] [address] [place] [address] 08/22/2024 1:15 PM EDT Office Visit [facility] [address] [place] [address] Katrin Santoyo MD [address] [place] [address] Health Maintenance Due Date Last Done Comments [...] EDT Narrative 07/23/2024 9:23 AM EDT ? [facility] ?[address] ?[place] [address] ? Ultrasound Report ? Signed ? Patient: Bhardwaj Sebastian,Darrel ?MR#: [id number] ?? [id number] ? : 1970 ?Acct:[id number] ? Age/Sex: 54 / M ?ADM Date: 03/18/25 ? Loc: HO.US ? Attending Dr: Chuy Mcmanus MD ? Ordering Physician: Chuy Mcmanus MD ?? Date of Service: 07/23/24 ?? Procedure(s): US abdomen comp w elastography ?? Accession Number(s): [id number] ? cc: Katrin Santoyo MD; Chuy Mcmanus [...] DD/ 0845 ? TD/TT: 07/23/24 0904 ? General Accountant: ? Procedure Note Donotuseinterpreter, Image - 07/23/2024 [place] [address] Ultrasound Report Signed Patient: Rayo Hagan#: [id number] : 1970Acct:[id number] Age/Sex: 54 / MADM Date: 07/23/24 Loc: HO.US Attending Dr: Chuy Mcmanus MD Ordering Physician: Chuy Mcmanus MD Date of Service: 07/23/24 Procedure(s): US abdomen comp w elastography Accession Number(s): [id number] cc: Katrin Sanotyo MD; Chuy Mcmanus MD EXAMINATION: US ABDOMEN [...] signed by Juvenal Caldera MD in OV> 07/23/24919 DD/ 4 TD/TT: 07/23/24 09 General Accountant: [facility] External Provider IMG US PROCEDURES Final Result * POCT Glucose (07/19/2024 9:19 AM EDT) Only the most recent of2 resultswithin the time period is included. [facility] Glucose Blood, POC 105 60 - 200 mg/dL Comment:random QC Media Lot # [id number] Lot# Expiration Date Blood Capillary blood specimen / Unknown 07/19/2024 9:19 AM EDT Moriah SEPULVEDAP POINT OF CARE TEST ENTER/EDIT ORDERABLES Final Result * POCT RIKKI-14 Urine Drug Screen (07/16/2024 11:31 AM EDT) Urine Urine specimen obtained by clean catch procedure / Unknown 07/16/2024 11:31 AM EDT Narrative Emili Cordero RN - 07/16/2024 11:31 AM EDT UTOX cup Lot#[id number] Exp. 12/25/25 Internal Pass Control UTOX Negative for all substances. Moriah SEPULVEDAP POINT OF CARE TEST ENTER/EDIT ORDERABLES Final Result * (ABNORMAL) Influenza A (ID NOW Rapid Molecular) (2024 11:09 AM EST) Pathologist [facility] Influenza A Positive( A) Negative, Indeterminate [facility] Swab 2024 11:0 9 AM EST Dhara Cardenas MD POINT OF CARE TEST ENTER/EDIT OR DERABLES Final Result Performing Organization Address City/[facility]/ZIP Co de Phone Number [facility] [address] [place] [phone] * Influenza B (ID NOW Rapid Molecular) (2024 11:08 AM EST) [facility] Influenza B Negative Negative, Indeterminate [facility] Swab 2024 11:0 8 AM EST Dhara Cardenas MD POINT OF CARE TEST ENTER/EDIT OR DERABLES Final Result Performing Organization Address City/[facility] Co de Phone Number [facility] [address] [place] [phone] * POCT Rapid COVID Ag (2024 11:08 AM EST) [facility] Rapid COVID Ag Negative Swab 2024 11:0 8 AM EST Dhara Cardenas MD POINT OF CARE TEST ENTER/EDIT OR DERABLES Final Result * (ABNORMAL) Hemoglobin A1c (03/27/2024 3:40 PM EST) [facility] Hemoglobin A1c 12.5(H) <6.0 % [facility] Comment:Hemoglobin A1C Refer ence Range Adults: 4.8 - 6.0 % Non diabetic: < 6.0 % Goal: < 7.0 %Additional Action Suggested: > 8.0 %Note: Hemoglobin A1c results are invalid for patients with abnormal amounts of HbF. Blood transfusions may impact the HbA1c concentration in the patient sample. Estimated Average Glucose 312 mg/dL [facility] Comment:eAG = Estimated ave rage glucose which is %A1C expressed asaverage glucose, using the formula of the U3I-KbsqfvkHqtpeyw Glucose study (ADAG), Diabetes Care, Vol.31,#8,Dec. 2007 03/27/2024 3:40 PM EST 03/27/2024 6:33 PM EST us Generic External Data Provider LAB BLOOD ORDERAB LES Final Result Performing Organization Address [facility] Co de Phone Number [facility] [address] [place] [address] [phone] * (ABNORMAL) Lipid Panel, Standard (09/19/2023 1:43 PM EDT) Triglycerides 316(H) <150 mg/dL [facility] Comment:Desirable Triglyceri de: less than 150 mg/dLBorderline High Triglyceride 150-199 mg/dLHigh Triglyceride: 200-499 mg/dLVery High Triglyceride: greater than or equal to 5OO mg/dL Cholesterol 164 <200 mg/dL [facility] Comment:Desirable Cholestero l: less than 200 mg/dLBorderline High Cholesterol: 200-239 mg/dLHigh Cholesterol: greater than 239 mg/dL LDL Cholesterol Calculated 60 <100 mg/dL [facility] Comment:Desirable LDL: less than 100 mg/dLNear Optimal/Above Optimal LDL: 110- 129 mg/dLBorderline High LDL: 130-159 mg/dLHigh LDL: 160-189 mg/dLVery High LDL: greater than or equal to 190 mg/dL HDL Cholesterol 41 >40 mg/dL [facility] Comment:Desirable HDL: great er than 40 mg/dL Note: This HDL assay may give artificially low results in patients with liver disease. Blood Venous blood specimen / Unknown 09/19/2023 1:43 PM EDT 09/19/2023 3:53 PM EDT us Katrin López MD LAB BLOOD ORDERAB LES Final Result Performing Organization Address City/[facility]/ZIP Co de Phone Number [facility] [address] [place] [phone] * HIV Ab/Ag (LOU DP) (12/06/2022 10:21 AM EDT) Pathologist [facility] HIV AB/AG Nonreactive Nonreactive [facility] Comment:HIV-1 p24 Ag and/or HIV-1/HIV-2 Ab not detected.A test result that is nonreactive does not exclude thepossibility of exposure to or infection with HIV-1 and/orHIV-2. Nonreactive results in this assay for individualswith prior exposure to HIV-1 and/or HIV-2 may be due toantigen and antibody levels that are below the limit ofdetection of this assay.The [employer] Super[employer] HIV Ag/Ab Combo assay result andsupplemental assay results should be interpreted inconjunction with the patient's clinical presentation,history and other laboratory results. If the results areinconsistent with clinical evidence, additional testing issuggested to confirm the result. 12/06/2022 10:2 1 AM EDT 12/06/2022 11:17 AM EDT Elise Stanford [facility] LAB BLOOD ORDERABLES Final Result [facility] [address] [place] [address] [phone] * Hepatitis Panel, General (12/06/2022 10:21 AM EDT) [facility] Hepatitis A IgM Nonreactive Nonreactive [facility] Comment:IgM antibodies to VILLAN[place]VA V not detected; does not exclude earlyacute or recovered HAV infection. ~Hepatitis B Surface Antibody REACTIVE Nonreactive [facility] Comment:REACTIVE: > 11.99 mI U/mL Hepatitis B Core Antibody Nonreactive Nonreactive [facility] Hepatitis C Antibody Nonreactive Nonreactive [facility] Comment:Antibodies to HCV no t detected; does not exclude early acuteHCV infection. Hepatitis B Surface Ag Negative Negative [facility] Blood 12/06/2022 10:2 1 AM EDT 12/06/2022 11:17 AM EDT Elise Stanford SSN/SSBN WEAPONS EQUIPMENT OPERATOR LAB BLOOD ORDERABLES Final Result [facility] [address] [place] [address] [phone] from Last 3 Months or Most Recently Relevant to Health Maintenance Insurance [facility] C3 DENTAL-[facility] MEDICAID STAND ADULT Care Teams Hiv Prevention Specialist Relationship Specialty Start Date End Date Katrin Santoyo MD [address] [place] [address] PCP - General Internal Medicine 12/13/22 Edison Vieira MD [address] [place] [address] Pulmonary Disease 04/07/24 Joe Devi MD [address] [facility] 3rd [place] [address] Gastroenterology 04/07/24 Carito Roche DNP [address] [facility], [address] [place] [address] Nephrology 04/07/24 Qonf 04/11/24
--- OUTSIDE RECORDS SUMMARY | 2024-07-30 08:25 | XMS_ITS | Encounter Summary ---
Author Organization [employer] Address [address] 7t [place] [address] Care Team Providers Care Inventory Control/Shipping Receiving Name Role Phone Katrin Santoyo MD Primary Care Pro vider Edison Vieira MD Unavailable Joe Devi MD Unavailable [phone] Reason for Visit * Reason Comments Med Refill Encounter Details Date Type Department Care Team ([facility] st Contact Info) Description 02/11/2024 Refill [facility] [address] [place] [address] Moriah Herbert FNP 505 [place] [address] Chronic radicular lumbar pain Social History Tobacco [...] Description 08/13/2024 9:45 AM EDT Office Visit [facility] [address] [place] [address] 08/22/2024 1:15 PM EDT Office Visit [facility] [address] [place] [address] Katrin Santoyo MD [address] [place] [address] documented as of this encounter Goals Goal [...] as of this encounter Care Teams Inventory Control/Shipping Receiving Relationship Specialty Start Date End Date Katrin Santoyo MD [address] [place] [address] PCP - General Internal Medicine 12/13/22 Edison Vieira MD 5 [place] [address] Pulmonary Disease 04/07/24 Joe Devi MD [address] [facility] 3rd [place] [address] Gastroenterology 04/07/24 Carito Roche DNP [address] [facility], [address] [place] [address] Nephrology 04/07/24 [employer] 04/11/24 documented as of this encounter
--- OUTSIDE RECORDS SUMMARY | 2024-07-30 08:25 | XMS_ITS | Encounter Summary ---
Author Organization [employer] Address [address] [facility] 7 [place] [address] Care Team Providers Care Button Breaker Operator Name Role Phone Katrin Santoyo MD Primary Care Pro vider Edison Vieira MD Unavailable Joe Devi MD Unavailable [phone] Encounter Details Date Type Department Care Team (Late st Contact Info) Description 06/21/2023 Abstract [facility] 230 [place], [place] [phone] Katrin Santoyo MD 230 [place] [address] Social History Tobacco Use Types Packs/Day Years [...] Description 08/13/2024 9:45 AM EDT Office Visit [facility] [address] [place] [address] 08/22/2024 1:15 PM EDT Office Visit [facility] [address] [place] [address] [phone] Katrin Santoyo MD [address] [place] [address] documented as of this encounter Goals Goal [...] documented as of this encounter Care Teams Button Breaker Operator Relationship Specialty Start Date End Date Katrin Santoyo MD [address] [place] [address] PCP - General Internal Medicine 12/13/22 Edison Vieira MD [address] [place] [address] Pulmonary Disease 04/07/24 Joe Devi MD [address] 3rd Floor [place] [address] Gastroenterology 04/07/24 Carito Roche DNP [address], [address] [place] [address] Nephrology 04/07/24 [employer] 04/11/24 documented as of this encounter
--- OUTSIDE RECORDS SUMMARY | 2024-07-30 08:25 | XMS_ITS | Encounter Summary ---
Author Organization [employer] Address [address] [facility] 7t [place] [address] Care Team Providers Care Chopper Gun Operator Name Role Phone Katrin Santoyo MD Primary Care Pro vider Edison Vieira MD Unavailable [phone] Joe Devi MD Unavailable [phone] Reason for Visit * Reason Onset Date Comments r/s chronic pain group 07/03/2024 Encounter Details Date Type Department Care Team ([facility] Contact Info) Description 07/03/2024 Telephone [facility] 505 [place] [address] Gabriela Rea, RN 505 [place] [address] r/s chronic pain group Social History Tobacco [...] 07/02/24. TC to pt via S ID# [id number]. Appt r/s to 07/16/24 @ 9:30am. documented in this encounter Plan of Treatment Upcoming Encounters Date Type Department Care Team (Late st Contact Info) Description 08/13/2024 9:45 AM EDT Office Visit [facility] MED[facility]INE [address] [place] [address] 08/22/2024 1:15 PM EDT Office Visit [facility] [address] [place] [address] Katrin Santoyo MD 230 [place] [address] documented as of this encounter Goals Goal [...] documented as of this encounter Care Teams Chopper Gun Operator Relationship Specialty Start Date End Date Katrin Santoyo MD [address] [place] [address] PCP - General Internal Medicine 12/13/22 Edison Vieira MD 5 [place] [address] Pulmonary Disease 04/07/24 Joe Devi MD 11 [facility] 3rd [place] [address] Gastroenterology 04/07/24 Carito Roche DNP 10 [facility], [address] [place] [address] Nephrology 04/07/24 [email or web address] 04/11/24 documented as of this encounter
--- OUTSIDE RECORDS SUMMARY | 2024-07-30 08:25 | XMS_ITS | Encounter Summary ---
Author Organization [employer] Address [address] 7t [place] [address] Care Team Providers Care Freight Loader Name Role Phone Katrin Santoyo MD Primary Care Pro vider Edison Vieira MD Unavailable [phone] Joe Devi MD Unavailable Encounter Details [...] t he electric, gas, oil or water [employer] threatened to shut off services in your [...] Visit [facility] MEDICINE [address] [place] [address] [phone] 08/22/2024 1:15 PM EDT Office Visit [facility]INE [address] [place] [address] Katrin Santoyo MD [address] [place] [address] documented as of this encounter Goals Goal [...] as of this encounter Care Teams Freight Loader Relationship Specialty Start Date End Date Katrin Santoyo MD 230 [place] [address] PCP - General Internal Medicine 12/13/22 Edison Vieira MD [address] [place] [address] Pulmonary Disease 04/07/24 Joe Devi MD [address] [place] [address] Gastroenterology 04/07/24 Carito Roche DNP [address], [address] [place] [address] Nephrology 04/07/24 [employer] 04/11/24 documented as of this encounter
--- OUTSIDE RECORDS SUMMARY | 2024-07-30 08:26 | XMS_ITS | Encounter Summary ---
Author Organization [employer] Address [address] 7t [place] [address] Care Team Providers Care Hydraulic Hammer Operator Name Role Phone Katrin Santoyo MD Primary Care Pro vider Edison Vieira MD Unavailable [phone] Joe Devi MD Unavailable [phone] Encounter Details Date Type Department Care Team (Late st Contact Info) Description 07/16/2024 9:45 AM EDT Office Visit [facility] 230 [place] [address] Moriah Herbert, HAYLEE [address] [place] [address] Chronic radicular lumbar pain (Primary Dx); Long-term [...] the past 12 months, has t he [employer] gas, oil or water [employer] threatened to shut off services in your [...] this encounter Progress Notes * Moriah Herbert, AUDIO OPERATOR - 07/16/2024 9:45 AM EDT Subjective: Darrel [...] the morning and 30mg before bed Topicals: zggzpsdkl-epofwic-bhecaz salicylate topical TID Related Specialists: Referral to [facility] 09/19/23, although per specialist, unable [...] kidney disease, with long-term current use of insulin([facility]) Current Assessment & Plan Lab Results Component Value Date HGBA1C 12.5 (H) 03/27/2024 - BG value improved s/p carb intake. Encouraged to continue monitoring BG closely and reviewed s/s hypoglycemia - From chart review, appears as though following with [facility] with last visit/encounter May 2024. - [...] PRN Indication: chronic radicular lumbar pain Last CAMPUS POLICE OFFICER Agreement: 04/02/24 Follow up: 1-2 month for [facility]. Follow up as scheduled with PCP, sooner as needed. * Emili Cordero RN - 07/16/2024 9:45 AM EDT CAMPUS POLICE OFFICER fork truck operator: PDMP reviewed today. Last fill date: [...] kidney disease, with long-termcurrent use of insulin ([facility]) Lab Results Component Value Date HGBA1C 12.5 (H) 03/27/2024 - BG value improved s/p carb intake. Encouraged to continue monitoring BG closely and reviewed s/s hypoglycemia - From chart review, appears as though following with [facility] with last visit/encounter May 2024. - If [...] 08/13/2024 9:45 AM EDT Office Visit [facility] [address] [place] [address] 08/22/2024 1:15 PM EDT Office Visit [facility] [address] [place] [address] Katrin Santoyo MD 230 [place], [place] [phone] Scheduled Orders Name Type Priority Associated Diagnoses [...] unspecified whether stage 3a or 3b CKD ([facility]) POCT GLUCOSE Routine 07/19/2024 9:17 AM EDT Type 2 diabetes mellitus with stage 3 chronic kidney disease, with long-term current use of insulin, unspecified whether stage 3a or 3b CKD (CMS/HCC) POCT RIKKI-14 URINE DRUG SCREEN Routine 07/16/2024 11:31 AM EDT Chronic radicular lumbar pain documented in this encounter Results * POCT Glucose (07/19/2024 9:19 AM EDT) [facility] Glucose Blood, POC 105 60 - 200 mg/dL Comment:random QC Media Lot # [id number] Lot# Expiration Date Blood Capillary blood specimen / Unknown 07/19/2024 9:19 AM EDT us Moriah Herbert [facility] POINT OF CARE TEST ENTER/EDIT ORDERABLES Final Result * POCT Glucose (07/19/2024 9:17 AM EDT) Glucose Blood, POC 89 60 - 200 mg/dL Comment:random QC Media Lot # [id number] Lot# Expiration Date Blood Capillary blood specimen / Unknown 07/19/2024 9:17 AM EDT Moriah Alemanvania [facility] POINT OF CARE TEST ENTER/EDIT ORDERABLES Final Result * POCT RIKKI-14 Urine Drug Screen (07/16/2024 11:31 AM EDT) Urine Urine specimen obtained by clean catch procedure / Unknown 07/16/2024 11:31 AM EDT Narrative Emili Cordero RN - 07/16/2024 11:31 AM EDT UTOX cup Lot#[id number] Exp. 12/25/25 Internal Pass Control UTOX Negative for all substances. Moriah Herbert [facility] POINT OF CARE TEST ENTER/EDIT ORDERABLES [...] as of this encounter Care Teams Hydraulic Hammer Operator Relationship Specialty Start Date End Date Katrin Santoyo MD [address] [place] [address] PCP - General Internal Medicine 12/13/22 Edison Vieira MD 5 [place] [address] Pulmonary Disease 04/07/24 Joe Devi MD 11 [facility] 3rd [place] [address] Gastroenterology 04/07/24 Carito Roche DNP 10 [facility], [address] [place] [address] Nephrology 04/07/24 [employer] 04/11/24 documented as of this encounter
--- OUTSIDE RECORDS SUMMARY | 2024-07-30 08:26 | XMS_ITS | Encounter Summary ---
Author Organization [employer] Address [address] 7t [place] [address] Care Team Providers Care Metal Inspector Name Role Phone Katrin Santoyo MD Primary Care Pro vider Edison Vieira MD Unavailable [phone] Joe Devi MD Unavailable [phone] Encounter Details Date Type Department Care [...] t he electric, gas, oil or water [employer] threatened to shut off services in your [...] Description 08/13/2024 9:45 AM EDT Office Visit [facility] [address] [place] [address] [phone] 08/22/2024 1:15 PM EDT Office Visit [facility] [address] [place] [address] Katrin Santoyo MD [address] [place] [address] 7[address] documented as of this encounter Goals Goal [...] as of this encounter Care Teams Metal Inspector Relationship Specialty Start Date End Date Katrin Santoyo MD 230 [place] [address] PCP - General Internal Medicine 12/13/22 Edison Vieira MD [address] [place] [address] Pulmonary Disease 04/07/24 Joe Devi MD [address]rd [place] [address] Gastroenterology 04/07/24 Carito Roche DNP [address], [address] [place] [address] Nephrology 04/07/24 [employer] 04/11/24 documented as of this encounter
--- OUTSIDE RECORDS SUMMARY | 2024-07-30 08:26 | XMS_ITS | Encounter Summary ---
Author Organization [employer] Address 75 [facility] 7t [place] [address] Care Team Providers Care Patient Escort Name Role Phone Katrin Santoyo MD Primary Care Pro vider Edison Vieira MD Unavailable [phone] Joe Devi MD Unavailable [phone] Encounter Details Date Type Department Care Team (Late st Contact Info) Description 07/19/2024 Population Health Risk Score [facility] (C3) Department 75 [facility] 7 [place] [phone] Provider, Population Health Generic Social History Tobacco [...] Visit [facility] [address] [place] [address] 08/22/2024 1:15 PM EDT Office Visit [facility] [address] [place] [address] Katrin Santoyo MD [address] [place] [address]9 documented as of this encounter Goals Goal [...] as of this encounter Care Teams Patient Escort Relationship Specialty Start Date End Date Katrin Santoyo MD [address] [place] [address] PCP - General Internal Medicine 12/13/22 Edison Vieira MD [address] [place] [address] Pulmonary Disease 04/07/24 Joe Devi MD [address] 3rd [place] [address] Gastroenterology 04/07/24 Carito Roche DNP [address], [address] [place] [address] Nephrology 04/07/24 [employer] 04/11/24 documented as of this encounter
--- OUTSIDE RECORDS SUMMARY | 2024-07-30 08:26 | XMS_ITS | Encounter Summary ---
Author Organization [employer] Address [address] [facility] 7t [place] [address] Care Team Providers Care Snaker Tractor Driver Name Role Phone Katrin Santoyo MD Primary Care Pro vider Edison Vieira MD Unavailable [phone] Joe Devi MD Unavailable [phone] Reason for Visit * Reason Onset Date Comments Referral 04/05/2023 Encounter Details Date Type Department Care Team (Late st Contact Info) Description 04/05/2023 Telephone [facility] 230 [place], [place] [phone] Katrin Santoyo MD 230 [place], [place] [phone] Referral Social History Tobacco Use Types Packs/Day [...] Bhardwaj - 04/06/2023 10:27 AM EST Called [facility] for an update and [...] Gastro made on 04/04/2023 sent to [facility], states that they called facility and facility informs that their missing a summary form. Please contact pt at [phone] Panamanian Speaker documented in this encounter Plan of Treatment Upcoming Encounters Date Type Department Care Team ([facility] st Contact Info) Description 08/13/2024 9:45 AM EDT Office Visit [facility] [address] [place] [address] 08/22/2024 1:15 PM EDT Office Visit [facility] [address] [place] [address] [phone] Katrin Santoyo MD [address] [place] [address] documented as of this encounter Goals Goal [...] documented as of this encounter Care Teams Snaker Tractor Driver Relationship Specialty Start Date End Date Katrin Santoyo MD [address] [place] [address] PCP - General Internal Medicine 12/13/22 Edison Vieira MD 5 [place] [address] Pulmonary Disease 04/07/24 Joe Devi MD [address] [place] [address] 3rd [place] [address] Gastroenterology 04/07/24 Carito Roche DNP 10 [facility], [address] [place] [address] Nephrology 04/07/24 [employer] 04/11/24 documented as of this encounter
--- OUTSIDE RECORDS SUMMARY | 2024-07-30 08:26 | XMS_ITS | Encounter Summary ---
Author Organization [employer] Address [address] [facility] [address] 7t [place] [address] Care Team Providers Care Substation Superintendent Name Role Phone Katrin Santoyo MD Primary Care Pro vider Edison Vieira MD Unavailable [phone] Joe Devi MD Unavailable [phone] Reason for Visit * Reason Comments Walk-In diarrhea, stomach pa in Encounter Details Date Type Department Care Team (Late st Contact Info) Description 07/17/2024 5:00 PM EDT Office Visit [facility] 230 [place], [place] [phone] Cleo Reynoso FNP 230 [place], [place] [phone] Diarrhea, unspecified type (Primary Dx) Social History [...] who presents for Walk-In (diarrhea, stomach pain). Buggy Loader (Carin) present and served as leather belt loop cutter during visit. Darrel reports he has not [...] Immodium ordered Red flags reviewed Return to [facility] if sx worsen or persist Other [...] Description 08/13/2024 9:45 AM EDT Office Visit [facility] [address] [place] [address] 08/22/2024 1:15 PM EDT Office Visit [facility] [address] [place] [address] Katrin Santoyo MD [address] [place] [address] documented as of this encounter Goals Goal Patient Goal Type Associated Problems Recent Progress Patient-Stated? Author Blood Pressure < 140/90 Blood Pressure 166/96(2024 4:42 PM EDT) No vEe Guzman PharmD Hemoglobin A1c < 7 Result Component 12.5(03/27/20 3:40 PM EST) Eve Merida PharmD documented as of this encounter Visit Diagnoses Diagnosis Diarrhea, unspecified type- Primary documented in this encounter Additional Health Concerns Assessment Noted Time PHQ-9 Depression Total Score: 4 10/31/19 24 10:32 AM EDT documented as of this encounter Care Teams Substation Superintendent Relationship Specialty Start Date End Date Katrin Santoyo MD [address] [place] [address] PCP - General Internal Medicine 12/13/22 Edison Vieira MD 5 [place] [address] Pulmonary Disease 04/07/24 Joe Devi MD [address] [place] [address] 3rd [place] [address] Gastroenterology 04/07/24 Carito Roche DNP 10 [facility], [address] [place] [address] Nephrology 04/07/24 [employer] 04/11/24 documented as of this encounter
--- OUTSIDE RECORDS SUMMARY | 2024-07-30 08:26 | XMS_ITS | Encounter Summary ---
Author Organization [employer] Address 75 [facility] 7t [place] [address] Care Team Providers Care Assistant Statistician Name Role Phone Katrin Santoyo MD Primary Care Pro vider Edison Vieira MD Unavailable [phone] Joe Devi MD Unavailable [phone] Reason for Visit * Reason Comments Med Refill Encounter Details Date Type Department Care Team ([facility] st Contact Info) Description 07/03/2024 Refill [facility] [address] [place] [address] [phone] Katrin Santoyo MD 230 [place] [address] Social History Tobacco Use Types Packs/Day Years [...] 08/13/2024 9:45 AM EDT Office Visit [facility] MEDICINE [address] [place] [address] 08/22/2024 1:15 PM EDT Office Visit [facility] MED[facility]INE [address] [place] [phone] Katrin Santoyo MD [address] [place] [address] documented as of this encounter Goals Goal [...] as of this encounter Care Teams Assistant Statistician Relationship Specialty Start Date End Date Katrin Santoyo MD [address] [place] [address] PCP - General Internal Medicine 12/13/22 Edison Vieira MD 5 [place] [address] Pulmonary Disease 04/07/24 Joe Devi MD 11 [facility] 3rd [place] [address] Gastroenterology 04/07/24 Carito Roche DNP 10 [facility], [address] [place] [address] Nephrology 04/07/24 [employer] 04/11/24 documented as of this encounter
--- OUTSIDE RECORDS SUMMARY | 2024-07-30 08:26 | XMS_ITS | Encounter Summary ---
Author Organization [email or web address] Address 75 [facility] 7t [place] [address] Care Team Providers Care [employer] Name Role Phone Katrin Santoyo MD Primary Care Pro vider Edison Vieira MD Unavailable [phone] Joe Devi MD Unavailable Reason for Visit * Reason Onset Date Comments Durable Medical Equipment 11/08/2023 Encounter Details Date Type Department Care Team (Late st Contact Info) Description 11/08/2023 Telephone [facility] 230 [place], [place] [phone] Katrin Santoyo MD 230 [place], [place] [phone] Durable Medical Equipment Social History Tobacco Use [...] 11/10/2023 11:01 AM EDT Call placed to [employer] spoke to Zhen who was informed on 10/31/23 we faxed over RX with the qty on it. He reports that what they need is the letter of medical necessity not the Rx. He reports he will fax it to blue team at [phone] and once signed and faxed back it will be all set. Awaiting do cument. * Telephone Encounter - Mauricio Taylor - 11/08/2023 3:57 PM EDT Tc from Tanya at [facility] line calling to report the DME is missing the quantity and the description please sign and refax documented in this encounter Plan of Treatment Upcoming Encounters Date Type Department Care Team (Late st Contact Info) Description 08/13/2024 9:45 AM EDT Office Visit [facility] MED[facility]INE [address] [place] [address] 08/22/2024 1:15 PM EDT Office Visit [facility] [address] [place] [address] Katrin Santoyo MD 230 [place] [address] documented as of this encounter Goals Goal [...] documented as of this encounter Care Teams [employer] Relationship Specialty Start Date End Date Katrin Santoyo MD 230 [place] [address] PCP - General Internal Medicine 12/13/22 Edison Vieira MD 5 [place] [address] Pulmonary Disease 04/07/24 Joe Devi MD 11 [facility] 3rd [place] [address] Gastroenterology 04/07/24 Carito Roche DNP 10 [facility], [address] [place] [address] Nephrology 04/07/24 [employer] 04/11/24 documented as of this encounter
== END 2024-07-30 08:04 | disposition home or self-care (01) ==
LOC: HO.XRAY 08:03
PROVIDERS: PCP Student in an Organized Health Care Education/Training Program; Visit Provider Surgery
DX: I12.9 Hypertensive chronic kidney disease with stage 1 through stage 4 chronic kidney disease, or unspecified chronic kidney disease (principal); E11.22 Type 2 diabetes mellitus with diabetic chronic kidney disease; N18.32 Chronic kidney disease, stage 3b; R80.9 Proteinuria, unspecified; E66.9 Obesity, unspecified; Z68.37 Body mass index [BMI] 37.0-37.9, adult; M10.9 Gout, unspecified; E11.42 Type 2 diabetes mellitus with diabetic polyneuropathy; G47.33 Obstructive sleep apnea (adult) (pediatric); Z79.4 Long term (current) use of insulin
CPT/HCPCS: 71046; 74246

== ENCOUNTER → 2024-07-30 08:05 | Outpatient (BNV) | payer MEDICAID, SELFPAY | PROVIDERS: PCP Student in an Organized Health Care Education/Training Program; Visit Provider Radiology Diagnostic Radiology | DX: K21.9 Gastro-esophageal reflux disease without esophagitis (principal); I10 Essential (primary) hypertension | CPT/HCPCS: 71046; 74246 ==

== ENCOUNTER 2024-08-05 09:32 | Outpatient (AMB) | payer MEDICAID, SELFPAY ==
--- NOTE | 2024-08-05 09:38 | MHC.OFFVIS ---
Intake Visit Reasons: s/p Excision Lump on neck, right side Intake Note: Patient here s/p lipoma excision~ Rt neck. Reports incision healing well. Patient c/o: steri strips in place. Denies pain, oozing. EXC: 07-29-2024. Financial Institution Branch Manager Required: No Accompanied by: Spouse Allergies Penicillins [PENICILLINS] Allergy (Intermediate, Verified 08/05/24 09:38) RASH, DIFFICULTY BREATHING HPI Comments Details: Patient presents with a family member for follow-up. She has complete resolution of the right axillary infected sebaceous cyst. REPLACED BY [facility] Medical History (Updated 06/10/24 @ 09:50 by Joy Fry [facility]) HTN (hypertension) Leukocytosis Memory loss Obesity Idiopathic gout of multiple sites GERD (gastroesophageal reflux disease) Hypertensive chronic kidney disease Secondary hyperparathyroidism, renal Sleep apnea Type 2 diabetes mellitus Schizoaffective disorder Chronic pain syndrome Diabetic polyneuropathy Gout Surgical History History of esophagogastroduodenoscopy (EGD) H/O colonoscopy Family History Father Cancer Diabetes Mother Cancer Diabetes Colon cancer Family/Other Cancer Diabetes Social History Household Members: Spouse Housing: House Do you presently have visiting nurse or other home services: Yes Alcohol intake: never Patient Tobacco Use Status: Never used Tobacco service: No Physical Exam Extrem Other: Right axillary infected cyst is completely resolved. Assessment & Plan Assessment & Plan (1) Infected sebaceous cyst: Code(s): L72.3 - Sebaceous cyst; L08.9 - Local infection of the skin and subcutaneous tissue, unspecified Category: Surgical Plan At present, would treat the patient conservatively. Should this process recur, consideration will be made for cyst excision. All questions answered. Patient will otherwise follow-up p.r.n. Coding Level of Care Code Est Pt Level 4 (93903) Diagnoses Infected sebaceous cyst L72.3; L08.9
--- NOTE | 2024-08-05 10:36 | MHC.OFFVIS ---
Intake Visit Reasons: s/p Excision Lump on neck, right side Allergies Penicillins [PENICILLINS] Allergy (Intermediate, Verified 08/05/24 09:38) RASH, DIFFICULTY BREATHING Medication List - Last Reconciled 08/05/24 by Handy Phoenix MD acetaminophen 1,000 mg PO Q6H PRN albuterol sulfate 2.5 mg inhalation Q6H PRN aspirin 1 tab PO DAILY atorvastatin 80 mg PO DAILY blood-glucose meter,continuous (Dexcom G7 Hall Director) As directed blood-glucose sensor (Dexcom G7 Sensor device) As directed calcium carbonate (Calcium Antacid) 400 mg PO DAILY carboxymethylcellulose sodium 0.5% (Lubricant Eye Drops) 1 drp ophthalmic (eye) NEEDED carvedilol 25 mg PO BID cholecalciferol (vitamin D3) 125 mcg (2.5 x 50 mcg (2,000 unit)) PO DAILY clonazepam 0.5 mg PO TID divalproex ER (Depakote ER) 1,000 mg PO BEDTIME duloxetine 60 mg PO DAILY empagliflozin (Jardiance) 10 mg PO DAILY furosemide 40 mg PO DAILY gabapentin 600 mg PO DAILY insulin regular hum U-500 conc (Humulin R U-500 (Conc) Insulin Kwikpen) 135 units subcut BEDTIME ketotifen fumarate 0.025%(0.035%) (Eye Itch Relief) 1 drp ophthalmic (eye) BID PRN omega 5-lyl-jyh-fish oil 300 mg (120 mg- 180mg)-1,000 mg 2 caps PO BID pantoprazole 40 mg PO DAILY pen needle, diabetic (BD Ultra-Fine Mini Pen Needle) As directed tiotropium bromide 1.25 mcg/actuation (Spiriva Respimat) 2 puffs inhalation DAILY tirzepatide (weight loss) (Zepbound) 2.5 mg (0.5 mL) subcut QWEEK tramadol 50 mg PO Q8H PRN trazodone 150 mg PO BEDTIME PRN ziprasidone HCl (Geodon) 80 mg PO BEDTIME HPI Comments Details: Patient presents for follow up with family member. He has no wound issues or complaints. Pathology is benign [facility] Medical History (Updated 06/10/24 @ 09:50 by Joy Fry [facility]) HTN (hypertension) Leukocytosis Memory loss Obesity Idiopathic gout of multiple sites GERD (gastroesophageal reflux disease) Hypertensive chronic kidney disease Secondary hyperparathyroidism, renal Sleep apnea Type 2 diabetes mellitus Schizoaffective disorder Chronic pain syndrome Diabetic polyneuropathy Gout Surgical History History of esophagogastroduodenoscopy (EGD) H/O colonoscopy Family History Father Cancer Diabetes Mother Cancer Diabetes Colon cancer Family/Other Cancer Diabetes Social History Household Members: Spouse Housing: House Do you presently have visiting nurse or other home services: Yes Alcohol intake: never Patient Tobacco Use Status: Never used Tobacco service: No Physical Exam Neck Other: Incision clean dry and intact healing well Assessment & Plan Assessment & Plan (1) Infected sebaceous cyst: Code(s): L72.3 - Sebaceous cyst; L08.9 - Local infection of the skin and subcutaneous tissue, unspecified Category: Surgical Plan: Patient was been given local instructions, and will otherwise follow-up p.r.n.. All questions answered. Coding Level of Care Code Global (86736) Diagnoses Infected sebaceous cyst L72.3; L08.9
== END 2024-08-05 09:39 | disposition home or self-care (01) ==
LOC: HO.HGS 09:32
PROVIDERS: PCP Student in an Organized Health Care Education/Training Program; Visit Provider Surgery
DX: L72.3 Sebaceous cyst (principal); L08.9 Local infection of the skin and subcutaneous tissue, unspecified
CPT/HCPCS: 99024

== ENCOUNTER → 2024-08-05 09:32 | Outpatient (BNVA) | payer MEDICAID, SELFPAY | PROVIDERS: PCP Student in an Organized Health Care Education/Training Program; Visit Provider Surgery | DX: Z09 Encounter for follow-up examination after completed treatment for conditions other than malignant neoplasm (principal); Z87.2 Personal history of diseases of the skin and subcutaneous tissue; Z98.890 Other specified postprocedural states | CPT/HCPCS: 99212 ==

== ENCOUNTER 2024-09-19 14:39 | Outpatient (REF) | payer MEDICAID, SELFPAY ==
--- OUTSIDE RECORDS SUMMARY | 2024-09-19 15:18 | XMS_ITS | Encounter Summary ---
Author Organization [facility] [employer] and [facility] Address [address] [place] [phone] Care Team Providers Care Warehouseman Name Role Phone Deep Pruitt APRN Primary Care Provider [phone] Reason for Visit * Reason Comments DME Encounter Details Date Type Department Care Team ([facility] st Contact Info) Description 05/04/2022 Documentation Sleep Medicine Program at [address] [place] [address] [phone] Jarad De Leon MD [address] [place] [phone] Social History Tobacco Use Types Packs/Day [...] Date Recorded PHQ-2 Total Score 2 02/17/2022 [facility] of Occupat ional Health [...] documented as of this encounter Care Teams Warehouseman Relationship Specialty Start Date End Date eDep Pruitt APRN PCP - General 05/22/19 documented as of this encounter
--- OUTSIDE RECORDS SUMMARY | 2024-09-19 15:18 | XMS_ITS | Encounter Summary ---
Author Organization [facility] Address [address] [place] [address] Care Team Providers Care Machine Carton Marker Name Role Phone Deep Pruitt APRN Primary Care Provider Reason for Visit * Reason Comments Medication Refill Encounter Details Date Type Department Care Team ([facility] st Contact Info) Description 06/07/2022 Refill [facility] [address] [place], [place] [phone] Deep Pruitt APRN [address] [place] [address] Medication Refill Social History Tobacco [...] you attend chur ch or pentecostalism services? More than 4 times per year [...] Recorded PHQ-2 Total Score 2 02/17/2022 [facility] of Occupat [...] your living situation today? I have a [facility] place to live 05/19/2022 Sex and [...] as of this encounter Care Teams Machine Carton Marker Relationship Specialty Start Date End Date Deep Pruitt APRN PCP - General 05/22/19 documented as of this encounter
--- OUTSIDE RECORDS SUMMARY | 2024-09-19 15:18 | XMS_ITS | Encounter Summary ---
Author Organization [facility] Address [address] [place] [address] Care Team Providers Care Rehab Manager Name Role Phone Deep Pruitt APRN Primary Care Provider Reason for Visit * Reason Comments Other Encounter Details Date Type Department Care Team ([facility] Contact Info) Description 05/24/2022 Telephone [facility] [address] [place] [address] Deep Pruitt APRN [address] [place] [phone] Other Social History Tobacco Use Types [...] Recorded PHQ-2 Total Score 2 02/17/2022 [facility] Stress Questionnaire Answer [...] your living situation today? I have a [facility] place to live 05/19/2022 Sex and [...] AM EST Patient best call back number [phone]. Patient has an upcoming appt with his [...] as of this encounter Care Teams Rehab Manager Relationship Specialty Start Date End Date Deep Pruitt APRN PCP - General 05/22/19 documented as of this encounter
--- OUTSIDE RECORDS SUMMARY | 2024-09-19 15:19 | XMS_ITS | Encounter Summary ---
Author Organization [facility] Address [address] [place] [address] Care Team Providers Care Organic Section Technical Lead Name Role Phone Deep Pruitt APRN Primary Care Provider Reason for Visit * Reason Comments Medication Refill Encounter Details Date Type Department Care Team ([facility] st Contact Info) Description 07/10/2020 Refill [facility] [address] [place] [address] Deep Pruitt APRN [address] [place] [phone] Medication Refill Social History Tobacco Use [...] Answer Date Recorded PHQ-2 Score 2 07/07/2020 [facility] of Occupat ional [facility] - Occupational Stress Questionnaire Answer Date [...] documented as of this encounter Care Teams Organic Section Technical Lead Relationship Specialty Start Date End Date Deep Pruitt APRN PCP - General 05/22/19 documented as of this encounter
--- OUTSIDE RECORDS SUMMARY | 2024-09-19 15:19 | XMS_ITS | Encounter Summary ---
Author Organization [facility] Address [address] [place] [address] Care Team Providers Care Squilgeer Name Role Phone Deep Pruitt APRN Primary Care Provider Reason for Visit * Reason Comments Medication Refill Encounter Details Date Type Department Care Team ([facility] st Contact Info) Description 07/29/2020 Refill [facility] [address] [place], [place] [phone] Deep Pruitt, JOHN [address] [place] [phone] Medication Refill Social History Tobacco Use [...] 07/07/2020 [facility] of Occupat ional [facility] - Occupational Stress Questionnaire Answer [...] documented as of this encounter Care Teams Squilgeer Relationship Specialty Start Date End Date Deep Pruitt APRN PCP - General 05/22/19 documented as of this encounter
--- OUTSIDE RECORDS SUMMARY | 2024-09-19 15:19 | XMS_ITS | Encounter Summary ---
Author Organization [facility] Address [address] [place] [phone] Care Team Providers Care Retail Cosmetics Sales Counter Manager Name Role Phone Deep Pruitt JOHN Primary Care Provider Reason for Visit * Reason Comments Medication Refill Encounter Details Date Type Department Care Team (Late st Contact Info) Description 07/20/2020 Refill [facility] Podiatry at [address] [place] [phone] Arben Fountain, NOLVIA [address] [place] [address] Medication Refill Social History Tobacco Use [...] documented as of this encounter Care Teams Retail Cosmetics Sales Counter Manager Relationship Specialty Start Date End Date Deep Pruitt APRN PCP - General 05/22/19 documented as of this encounter
--- OUTSIDE RECORDS SUMMARY | 2024-09-19 15:19 | XMS_ITS | Encounter Summary ---
Author Organization [facility] Address [address] [place] [address] Care Team Providers Care Vac Press Operator Name Role Phone Katrin Santoyo MD Primary Care Pro vider Edison Vieira MD Unavailable Joe Devi MD Unavailable [phone] Reason for Visit * Reason Comments Med Refill Encounter Details Date Type Department Care Team (Late st Contact Info) Description 02/11/2024 Refill [facility] [address] [place] [address] Moriah Herbert FNP [address] [place] [address] Chronic radicular lumbar pain Social History Tobacco [...] Care Team (Late st Contact Info) Description 10/07/2024 1:00 PM EDT Clinical Support [address] [address] 11/01/2024 1:15 PM EDT Office Visit [address] [address] Katrin Santoyo MD [address] [place] [address] 11/12/2024 9:45 AM EDT Office Visit [address] [address] documented as of this encounter Goals Goal Patient Goal Type Associated Problems Recent Progress Patient-Stated? Author Blood Pressure < 140/90 Blood Pressure 134/78(2024 1:13 PM EDT) No Piers-Gambl e, Eve, PharmD Hemoglobin A1c < 7 Result Component 10.2(08/23/19 1:13 PM EDT) No Piers-Gambl e, Eve, PharmD documented as of this encounter Visit Diagnoses Diagnosis Chronic radicular lumbar pain documented in this encounter Additional Health Concerns Assessment Noted Time PHQ-9 Depression Total Score: 4 10/31/19 10:32 AM EDT documented as of this encounter Care Teams Vac Press Operator Relationship Specialty Start Date End Date Katrin Santoyo MD [address] [place] [address] PCP - General Internal Medicine 12/13/22 Edison Vieira MD [address] [place] [address] Pulmonary Disease 04/07/24 Joe Devi MD 11 [facility] 3rd [place] [address] Gastroenterology 04/07/24 Carito Roche DNP [address] [facility], [address] [place] [address] Nephrology 04/07/24 Share Some Style 04/11/24 documented as of this encounter
--- OUTSIDE RECORDS SUMMARY | 2024-09-19 15:20 | XMS_ITS | Encounter Summary ---
Author Organization [facility] Address [address] [place] [address] Care Team Providers Care Flight Paramedic Name Role Phone Deep Pruitt APRN Primary Care Provider Encounter Details Date Type Department Care Team ([facility] st Contact Info) Description 06/13/2020 Scanned Document [facility] [address] [place], [place] [phone] Deep Pruitt APRN [address] [place] [address] Social History Tobacco Use Types [...] Answer Date Recorded PHQ-2 Score 0 03/13/2020 [facility] of Occupat ional Health - Occupational Stress [...] documented as of this encounter Care Teams Flight Paramedic Relationship Specialty Start Date End Date Deep Pruitt APRN PCP - General 05/22/19 documented as of this encounter
--- OUTSIDE RECORDS SUMMARY | 2024-09-19 15:20 | XMS_ITS | Encounter Summary ---
Author Organization [facility] Address [address] [place] [address] Care Team Providers Care Back Wedger Name Role Phone Deep Pruitt APRN Primary Care Provider Reason for Visit * Reason Comments Medication Refill Encounter Details Date Type Department Care Team ([facility] st Contact Info) Description 06/19/2020 Refill [facility] [address] [place] [address] Deep Pruitt APRN [address] [place] [phone] Medication Refill Social History Tobacco Use [...] encounter Visit Diagnoses Diagnosis Asthma exacerbation, mild (HC CODE) Unspecified asthma, with exacerbation documented in this [...] as of this encounter Care Teams Back Wedger Relationship Specialty Start Date End Date Deep Pruitt APRN PCP - General 05/22/19 documented as of this encounter
--- OUTSIDE RECORDS SUMMARY | 2024-09-19 15:20 | XMS_ITS | Encounter Summary ---
Author Organization [facility] Address [address] [place] [address] Care Team Providers Care Mold Closer Helper Name Role Phone Deep Pruitt APRN Primary Care Provider Encounter Details Date Type Department Care Team (Late st Contact Info) Description 06/11/[address] [facility] [address] [facility], 2nd floor [facility], [address] [place], [place] [phone] Isha Brown APRN [address] [place] [address] Social History Tobacco Use Types [...] Date Recorded PHQ-2 Total Score 3 05/31/2021 [facility] of Occupat ional Health [...] as of this encounter Care Teams Mold Closer Helper Relationship Specialty Start Date End Date Deep Pruitt APRN PCP - General 05/22/19 documented as of this encounter
--- OUTSIDE RECORDS SUMMARY | 2024-09-19 15:20 | XMS_ITS | Encounter Summary ---
Author Organization [employer] Address [address] [facility] 7t [place] [address] Care Team Providers Care Visitor Services Technician Name Role Phone Katrin Santoyo MD Primary Care Pro vider Edison Vieira MD Unavailable [phone] Joe Devi MD Unavailable [phone] Reason for Visit * Reason Onset Date Comments Durable Medical Equipment 11/08/2023 Encounter Details Date Type Department Care Team (Late st Contact Info) Description 11/08/2023 Telephone [facility] [address] [place], [place] [phone] Katrin Santoyo MD [address] [place], [place] [phone] Durable Medical Equipment Social History Tobacco Use [...] 11/10/2023 11:01 AM EDT Call placed to [employer] spoke to Zhen who was informed on 10/31/23 we faxed over RX with the qty on it. He reports that what they need is the letter of medical necessity not the Rx. He reports he will fax it to blue team at [phone] and once signed and faxed back it will be all set. Awaiting do cument. * Telephone Encounter - Mauricio Taylor - 11/08/2023 3:57 PM EDT Tc from Tanya at [facility] line calling to report the DME is missing the quantity and the description please sign and refax documented in this encounter Plan of Treatment Upcoming Encounters Date Type Department Care Team (Late st Contact Info) Description 10/07/2024 1:00 PM EDT Clinical Support [address] [address] 11/01/2024 1:15 PM EDT Office Visit [address] [address] Katrin Santoyo MD [address] [place] [address] 11/12/2024 9:45 AM EDT Office Visit [facility] [address] [place] [address] documented as of this encounter Goals Goal Patient Goal Type Associated Problems Recent Progress Patient-Stated? Author Blood Pressure < 140/90 Blood Pressure 134/78(2024 1:13 PM EDT) No Piers-Gambl Eve carballo, PharmD Hemoglobin A1c < 7 Result Component 10.2(08/23/19 1:13 PM EDT) No Piers-Gambl eEve, PharmD documented as of this encounter Visit Diagnoses Not on filedocumented in this encounter Additional Health Concerns Assessment Noted Time PHQ-9 Depression Total Score: 4 10/31/19 10:32 AM EDT documented as of this encounter Care Teams Visitor Services Technician Relationship Specialty Start Date End Date Katrin Santoyo MD [address] [place] [address] PCP - General Internal Medicine 12/13/22 Edison Vieira MD [address] [place] [address] Pulmonary Disease 04/07/24 Joe Devi MD 11 [facility] 3rd [place] [address] Gastroenterology 04/07/24 Carito Roche DNP [address] [facility], [address] [place] [address] Nephrology 04/07/24 LAFASO 04/11/24 documented as of this encounter
--- OUTSIDE RECORDS SUMMARY | 2024-09-19 15:20 | XMS_ITS | Encounter Summary ---
Author Organization [facility] Address [address] [place] [address] Care Team Providers Care Reeler Operator Name Role Phone Deep Pruitt APRN Primary Care Provider Encounter Details Date Type Department Care Team ([facility] st Contact Info) Description 06/25/2021 Telephone [facility] [address] [place] [address] Deep Pruitt APRN [address] [place] [address] Social History Tobacco Use Types [...] Date Recorded PHQ-2 Total Score 3 05/31/2021 [facility] of Occupat ional Health - [...] documented as of this encounter Care Teams Reeler Operator Relationship Specialty Start Date End Date Deep Pruitt APRN PCP - General 05/22/19 documented as of this encounter
--- OUTSIDE RECORDS SUMMARY | 2024-09-19 15:20 | XMS_ITS | Encounter Summary ---
Author Organization [facility] Address [address] [place] [address] Care Team Providers Care Barrel Coater Name Role Phone Deep Pruitt APRN Primary Care Provider Reason for Visit * Reason Comments Medication Refill Encounter Details Date Type Department Care Team (Late st Contact Info) Description 06/19/2020 Refill [facility] [address] [place], [place] [address] Janel Cummins APRN [address] [place] [phone] Medication Refill Social History Tobacco Use Types [...] to type 2 diabetes mellitus (HC Code) documented [...] documented as of this encounter Care Teams Barrel Coater Relationship Specialty Start Date End Date Deep Pruitt APRN PCP - General 05/22/19 documented as of this encounter
--- OUTSIDE RECORDS SUMMARY | 2024-09-19 15:20 | XMS_ITS | Encounter Summary ---
Author Organization [facility] Address [address] [place] [address] Care Team Providers Care Retail Greeting Card Merchandiser Name Role Phone Deep Pruitt JOHN Primary Care Provider Reason for Visit * Reason Comments Medication Refill Encounter Details Date Type Department Care Team (Late st Contact Info) Description 05/06/2021 Refill [facility] Podiatry at [address] [place] [phone] Arben Fountain, NOLVIA [address] [place] [address] Medication Refill Social History Tobacco [...] Score 0 04/21/2021 [facility] - [facility]ational Stress Questionnaire Answer [...] as of this encounter Care Teams Retail Greeting Card Merchandiser Relationship Specialty Start Date End Date Deep Pruitt APRN PCP - General 05/22/19 documented as of this encounter
--- OUTSIDE RECORDS SUMMARY | 2024-09-19 15:20 | XMS_ITS | Encounter Summary ---
Author Organization [facility] Address [address] [place] [address] Care Team Providers Care Grant Officer Name Role Phone Deep Pruitt APRN Primary Care Provider Reason for Visit * Reason Comments Medication Refill Encounter Details Date Type Department Care Team ([facility] st Contact Info) Description 06/30/2021 Refill [facility] [address] [place], [place] [phone] Deep Pruitt APRN [address] [place] [address] Medication Refill Social History Tobacco [...] Date Recorded PHQ-2 Total Score 3 05/31/2021 [facility] of Occupat ional Health - [...] documented as of this encounter Care Teams Grant Officer Relationship Specialty Start Date End Date Deep Pruitt APRN PCP - General 05/22/19 documented as of this encounter
--- OUTSIDE RECORDS SUMMARY | 2024-09-19 15:20 | XMS_ITS | Encounter Summary ---
Author Organization [facility] Address [address] [place] [address] Care Team Providers Care Generator Mechanic Name Role Phone Deep Pruitt APRN Primary Care Provider Reason for Visit * Reason Comments Forms Encounter Details Date Type Department Care Team ([facility] Contact Info) Description 06/16/2020 Telephone [facility] [address] [place] [address] Deep Pruitt APRN [address] [place] [phone] Forms Social History Tobacco Use Types [...] Answer Date Recorded PHQ-2 Score 0 03/13/2020 [facility] of Occupat ional Health [...] update on handicap forms for pt. Call [phone] documented in this encounter Plan of Treatment [...] as of this encounter Care Teams Generator Mechanic Relationship Specialty Start Date End Date Deep Pruitt APRN PCP - General 05/22/19 documented as of this encounter
--- OUTSIDE RECORDS SUMMARY | 2024-09-19 15:20 | XMS_ITS | Encounter Summary ---
Author Organization [facility] Address [address] [place] [address] Care Team Providers Care Curriculum Development Coordinator Name Role Phone SonalDeep Niko LOPEZ Primary Care Provider Reason for Visit * Reason Comments Medication Refill Encounter Details Date Type Department Care Team (Late st Contact Info) Description 07/03/2020 Refill [facility] Nutrition at [address] [address] Zena Hines PA [address] [place] [phone] Medication Refill Social History Tobacco Use [...] Answer Date Recorded PHQ-2 Score 2 07/07/2020 [facility] of Occupat ional Health - [...] for Metformin received. Pt was engaging with [facility] and continues with PCP. Unclear [...] documented as of this encounter Care Teams Curriculum Development Coordinator Relationship Specialty Start Date End Date Deep Pruitt APRN PCP - General 05/22/19 documented as of this encounter
--- OUTSIDE RECORDS SUMMARY | 2024-09-19 15:21 | XMS_ITS | Encounter Summary ---
Author Organization [facility] Address [address] [place] [address] Care Team Providers Care Warp Tying Machine Tender Name Role Phone Deep Pruitt APRN Primary Care Provider Reason for Visit * Reason Comments Other Encounter Details Date Type Department Care Team ([facility] Contact Info) Description 05/19/2020 Telephone [facility] [address] [place] [address] Deep Pruitt APRN [address] [place] [address] Other Social History Tobacco Use [...] Date Recorded PHQ-2 Score 0 03/13/2020 [facility] of Occupat ional [...] to his gout, call back number is [phone] documented in this encounter Plan of Treatment [...] documented as of this encounter Care Teams Warp Tying Machine Tender Relationship Specialty Start Date End Date Deep Pruitt APRN PCP - General 05/22/19 documented as of this encounter
--- OUTSIDE RECORDS SUMMARY | 2024-09-19 15:21 | XMS_ITS | Encounter Summary ---
Author Organization [facility] Address [address] [place] [address] Care Team Providers Care Embossing Unit Operator Name Role Phone Deep Pruitt APRN Primary Care Provider [phone] [phone] Reason for Visit * Reason Comments Medication Refill Encounter Details Date Type Department Care Team ([facility] st Contact Info) Description 02/25/2022 Refill [facility] [address] [place], [place] [phone] Deep Pruitt, JOHN [address] [place] [phone] Medication Refill Social History Tobacco Use [...] documented as of this encounter Care Teams Embossing Unit Operator Relationship Specialty Start Date End Date Deep Pruitt APRN PCP - General 05/22/19 documented as of this encounter
--- OUTSIDE RECORDS SUMMARY | 2024-09-19 15:21 | XMS_ITS | Encounter Summary ---
Author Organization [facility] Address [address] [place] [address] Care Team Providers Care Antique Collector Name Role Phone Deep Pruitt APRN Primary Care Provider Reason for Visit * Reason Comments Medication Refill Encounter Details Date Type Department Care Team ([facility] st Contact Info) Description 03/19/2022 Refill [facility] [address] [place], [place] [phone] Deep Pruitt, JOHN [address] [place] [address] Medication Refill Social History Tobacco [...] Date Recorded PHQ-2 Total Score 2 02/17/2022 [facility] of Occupat ional Health [...] documented as of this encounter Care Teams Antique Collector Relationship Specialty Start Date End Date Deep Pruitt APRN PCP - General 05/22/19 documented as of this encounter
--- OUTSIDE RECORDS SUMMARY | 2024-09-19 15:21 | XMS_ITS | Encounter Summary ---
Author Organization [facility] Address [address] [place] [address] Care Team Providers Care Cook Helper Juice Name Role Phone Sonal Deep Niko LOPEZ Primary Care Provider +1- [phone] Reason for Visit * Reason Comments Medication Refill Encounter Details Date Type Department Care Team ([facility] st Contact Info) Description 04/12/2021 Refill [facility] [address] [place] [phone] Aliya Pond, [address] [address] Medication Refill Social History [...] Date Recorded PHQ-2 Total Score 1 03/24/2021 [facility] - [...] as of this encounter Care Teams Cook Helper Juice Relationship Specialty Start Date End Date Deep Pruitt APRN PCP - General 05/22/19 documented as of this encounter
--- OUTSIDE RECORDS SUMMARY | 2024-09-19 15:21 | XMS_ITS | Encounter Summary ---
Author Organization [facility] Address [address] [place] [address] Care Team Providers Care Sales Department Manager Name Role Phone Deep Pruitt APRN Primary Care Provider Reason for Visit * Reason Comments DME Encounter Details Date Type Department Care Team (Late st Contact Info) Description 04/11/2022 Documentation Sleep Medicine Program at [address] [place] [address] Jarad De Leon MD [address] [place] [phone] Social History Tobacco Use Types Packs/Day [...] Recorded PHQ-2 Total Score 2 02/17/2022 [facility] of Occupat [...] as of this encounter Care Teams Sales Department Manager Relationship Specialty Start Date End Date Deep Pruitt APRN PCP - General 05/22/19 documented as of this encounter
--- OUTSIDE RECORDS SUMMARY | 2024-09-19 15:21 | XMS_ITS | Encounter Summary ---
Author Organization [facility] Address [address] [place] [address] Care Team Providers Care Solution Advisor Name Role Phone Deep Pruitt APRN Primary Care Provider Reason for Visit * Reason Comments Medication Refill Encounter Details Date Type Department Care Team ([facility] st Contact Info) Description 05/13/2020 Refill [facility] [employer] [address] [place], [place] [address] Deep Pruitt APRN [address] [place] [address] Medication Refill Social History Tobacco [...] Answer Date Recorded PHQ-2 Score 0 03/13/2020 [facility] of Occupat ional Health - Occupational Stress [...] documented as of this encounter Care Teams Solution Advisor Relationship Specialty Start Date End Date Deep Pruitt APRN PCP - General 05/22/19 documented as of this encounter
--- OUTSIDE RECORDS SUMMARY | 2024-09-19 15:21 | XMS_ITS | Encounter Summary ---
Author Organization [facility] Address [address] [place] [address] Care Team Providers Care Radio Interference Trouble Shooter Name Role Phone Deep Pruitt Niko LOPEZ Primary Care Provider +1-2 [phone] Reason for Visit * Reason Comments Medication Refill Encounter Details Date Type Department Care Team (Late st Contact Info) Description 05/06/[address] [phone] Arben Fountain, NOLVIA [address] [place] [address] Medication Refill Social History Tobacco [...] Answer Date Recorded PHQ-2 Score 0 03/13/2020 [facility] of Occupat ional Health [...] documented as of this encounter Care Teams Radio Interference Trouble Shooter Relationship Specialty Start Date End Date Deep Pruitt APRN PCP - General 05/22/19 documented as of this encounter
--- OUTSIDE RECORDS SUMMARY | 2024-09-19 15:21 | XMS_ITS | Encounter Summary ---
Author Organization [facility] Address [address] [place] [address] Care Team Providers Care Director Safety Name Role Phone Sonal Deep Niko LOPEZ Primary Care Provider +1- [phone] Reason for Visit * Reason Comments Medication Refill Encounter Details Date Type Department Care Team ([facility] st Contact Info) Description 05/10/2021 Refill [facility] [address] [place] [address] [phone] Aliya Pond, [address] [address] Medication Refill Social History Tobacco [...] Date Recorded PHQ-2 Total Score 0 04/21/2021 [facility] - Occupational [...] as of this encounter Care Teams Director Safety Relationship Specialty Start Date End Date Deep Pruitt APRN PCP - General 05/22/19 documented as of this encounter
--- OUTSIDE RECORDS SUMMARY | 2024-09-19 15:21 | XMS_ITS | Encounter Summary ---
Author Organization [facility] Address [address] [place] [address] Care Team Providers Care Dipper And Drier Name Role Phone Deep Pruitt APRN Primary Care Provider Reason for Visit * Reason Comments Medication Refill Encounter Details Date Type Department Care Team ([facility] st Contact Info) Description 05/18/2020 Refill [facility] [address] [place] [address] Deep Pruitt APRN [address] [place] [phone] Medication Refill Social History Tobacco Use [...] documented as of this encounter Care Teams Dipper And Drier Relationship Specialty Start Date End Date Deep Pruitt APRN PCP - General 05/22/19 documented as of this encounter
--- OUTSIDE RECORDS SUMMARY | 2024-09-19 15:21 | XMS_ITS | Encounter Summary ---
Author Organization [facility] Address [address] [place] [address] Care Team Providers Care Supervisor Molding Name Role Phone Deep Pruitt JOHN Primary Care Provider Reason for Visit * Reason Comments Medication Refill Encounter Details Date Type Department Care Team (Late st Contact Info) Description 05/12/2021 Refill [facility] Podiatry at [address] [place] [phone] Arben Fountain, NOLVIA [address] [place] [address] Medication Refill Social History Tobacco [...] Date Recorded PHQ-2 Total Score 0 04/21/2021 [facility] - Occupational Stress Questionnaire Answer Date [...]
--- OUTSIDE RECORDS SUMMARY | 2024-09-19 15:21 | XMS_ITS | Encounter Summary ---
Author Organization [facility] Address [address] [place] [address] Care Team Providers Care Adobe Developer Name Role Phone Sonal Deep Niko LOPEZ Primary Care Provider +1- [phone] Reason for Visit * Reason Comments Medication Refill Encounter Details Date Type Department Care Team ([facility] st Contact Info) Description 04/07/2021 Refill [facility] [address] [place] [phone] Aliya Pond, [address] [address] Medication Refill Social History Tobacco [...] Date Recorded PHQ-2 Total Score 1 03/24/2021 [facility] [...] documented as of this encounter Care Teams Adobe Developer Relationship Specialty Start Date End Date Deep Pruitt APRN PCP - General 05/22/19 documented as of this encounter
--- OUTSIDE RECORDS SUMMARY | 2024-09-19 15:21 | XMS_ITS | Encounter Summary ---
Author Organization [facility] Address [address] [place] [address] Care Team Providers Care Automatic Chief Name Role Phone Sonal Deep Niko LOPEZ Primary Care Provider +1- [phone] Reason for Visit * Reason Comments Medication Refill Encounter Details Date Type Department Care Team ([place] [facility] st Contact Info) Description 05/05/2021 Refill [facility] [address] [place] [phone] Aliya Pond, [address] [address] Medication Refill Social History Tobacco [...] Date Recorded PHQ-2 Total Score 0 04/21/2021 [facility] [...] as of this encounter Care Teams Automatic Chief Relationship Specialty Start Date End Date Deep Pruitt APRN PCP - General 05/22/19 documented as of this encounter
--- OUTSIDE RECORDS SUMMARY | 2024-09-19 15:21 | XMS_ITS | Encounter Summary ---
Author Organization [facility] Address [address] [place] [address] Care Team Providers Care Engine Room Helper Name Role Phone Sonal Deep Niko LOPEZ Primary Care Provider +1- [phone] Reason for Visit * Reason Comments Medication Refill Encounter Details Date Type Department Care Team ([facility] st Contact Info) Description 05/03/2021 Refill [facility] [address] [place] [phone] Aliya Pond, [address] [address] Medication Refill Social History Tobacco [...] PHQ-2 Total Score 0 04/21/2021 [facility] [...] of this encounter Care Teams Engine Room Helper Relationship Specialty Start Date End Date Deep Pruitt APRN PCP - General 05/22/19 documented as of this encounter
--- OUTSIDE RECORDS SUMMARY | 2024-09-19 15:21 | XMS_ITS | Encounter Summary ---
Author Organization [facility] Address [address] [place] [address] Care Team Providers Care Methods Specialist Name Role Phone Deep Pruitt APRN Primary Care Provider Reason for Visit * Reason Comments Medication Refill Encounter Details Date Type Department Care Team ([facility] st Contact Info) Description 05/27/2020 Telephone [facility] [address] [place] [address] Deep Pruitt APRN [address] [place] [address] Medication Refill Social History Tobacco [...] Answer Date Recorded PHQ-2 Score 0 03/13/2020 [facility] of Occupat ional Health [...] medications and request someone calls him at [phone] documented in this encounter Plan of Treatment [...] as of this encounter Care Teams Methods Specialist Relationship Specialty Start Date End Date Deep Pruitt APRN PCP - General 05/22/19 documented as of this encounter
--- OUTSIDE RECORDS SUMMARY | 2024-09-19 15:21 | XMS_ITS | Encounter Summary ---
Author Organization [facility] Address [address] [place] [address] Care Team Providers Care Director Long Term Care Name Role Phone SonalDeep Niko LOPEZ Primary Care Provider Reason for Visit * Reason Comments Medication Refill Encounter Details Date Type Department Care Team (Late st Contact Info) Description 05/12/2020 Refill [facility] Nutrition at [address] [address] Zena Hines PA [address] [place] [address] Medication Refill Social History Tobacco [...] Pike Please review pt no longer seeing [facility] Wellness Dept for DM management. Katrin [...] as of this encounter Care Teams Director Long Term Care Relationship Specialty Start Date End Date Deep Pruitt APRN PCP - General 05/22/19 documented as of this encounter
--- OUTSIDE RECORDS SUMMARY | 2024-09-19 15:22 | XMS_ITS | Encounter Summary ---
Author Organization [facility] Address [address] [place] [address] Care Team Providers Care Industrial Truck Operator Name Role Phone Deep Pruitt APRN Primary Care Provider [phone] [phone] Reason for Visit * Reason Comments Medication Refill Encounter Details Date Type Department Care Team ([facility] st Contact Info) Description 03/10/2021 Refill [facility] [address] [place] [address] Deep Pruitt APRN [address] [place] [phone] Medication Refill Social History Tobacco Use [...] Date Recorded PHQ-2 Total Score 2 03/10/2021 [facility] of Occupat ional Health [...] as of this encounter Care Teams Industrial Truck Operator Relationship Specialty Start Date End Date Deep Pruitt APRN PCP - General 05/22/19 documented as of this encounter
--- OUTSIDE RECORDS SUMMARY | 2024-09-19 15:22 | XMS_ITS | Encounter Summary ---
Author Organization [facility] Address [address] [place] [address] Care Team Providers Care Circular Shear Operator Name Role Phone Deep Pruitt APRN Primary Care Provider Encounter Details Date Type Department Care Team (Late st Contact Info) Description 04/08/2021 Lab Requisition [facility] [address] [place] [address] Isha Brown APRN [address] [place] [address] Persons encountering health services in [...] Date Recorded PHQ-2 Total Score 1 03/24/2021 [facility] - [...] Date/Time Associated Diagnosis Comments BLOOD GAS, ARTERIAL ([facility]) Routine 04/08/2021 12:44 PM EST documented in this encounter Results * (ABNORMAL) Blood gas, arterial () (04/08/2021 12:44 PM EST) pH Arterial 7.37 7.35 - 7.45 units 04/08/2021 12:54 PM [facility] DEPARTMENT OF LABORATORY MEDICINE pCO2, Arterial 49(H) 32 - 48 mmHg 04/08/20 21 12:54 PM [facility] DEPARTMENT OF LABORATORY MEDICINE pO2, Arterial 65(L) 83 - 108 mmHg 04/08/2021 12:54 PM [facility] DEPARTMENT OF LABORATORY MEDICINE O2 Sat, Arterial 89(L) 94 - 98 % 04/08/20 12:54 PM [facility] DEPARTMENT OF LABORATORY MEDICINE Calculated HCO3, Arterial 27.5 21.0 - 28.0 mmol/L 04/08/2021 12:54 PM [facility] DEPARTMENT OF LABORATORY MEDICINE Base Excess, Arterial 2 -2 - 3 mmol/L 04/08/2021 12:54 PM [facility] DEPARTMENT OF LABORATORY MEDICINE Patient Temperature 37.0 Celsius 04/08/2021 12:54 PM EST [facility] DEPARTMENT OF LABORATORY MEDICINE FIO2 21 % 04/08/2021 12:54 PM EST [facility] DEPARTMENT OF LABORATORY MEDICINE Blood, Arterial 04/08/2021 1 2:44 PM EST 04/08/2021 12:45 PM EST us Isha Brown GASOLINE TRACTOR OPERATOR LAB BLOOD ORDERABL ES Final Result Performing Organization Address City/State/[facility] de Phone Number [facility] DEPARTMENT OF LABORATORY MEDICINE [address] [place] [address] documented in this encounter Visit Diagnoses Diagnosis [...] documented as of this encounter Care Teams Circular Shear Operator Relationship Specialty Start Date End Date Deep Pruitt APRN PCP - General 05/22/19 documented as of this encounter
--- OUTSIDE RECORDS SUMMARY | 2024-09-19 15:22 | XMS_ITS | Encounter Summary ---
Author Organization [facility] Address [address] [place] [address] Care Team Providers Care Alley Worker Name Role Phone Deep Pruitt APRN Primary Care Provider Reason for Visit * Reason Comments Medication Refill Encounter Details Date Type Department Care Team ([facility] st Contact Info) Description 03/20/2021 Refill [facility] [address] [place] [address] Deep Pruitt APRN [address] [place] [phone] Medication Refill Social History Tobacco Use [...] PHQ-2 Total Score 1 03/24/2021 [facility] of Occupat ional [...] documented as of this encounter Care Teams Alley Worker Relationship Specialty Start Date End Date Deep Pruitt APRN PCP - General 05/22/19 documented as of this encounter
--- OUTSIDE RECORDS SUMMARY | 2024-09-19 15:22 | XMS_ITS | Encounter Summary ---
Author Organization [facility] Address [address] [place] [address] Care Team Providers Care Electric Arc Furnace Operator Name Role Phone Deep Pruitt APRN Primary Care Provider +[phone] Reason for Visit * Reason Comments Medication Problem Encounter Details Date Type Department Care Team ([facility] st Contact Info) Description 12/21/2021 Refill [facility] [address] [place] [address] Deep Pruitt APRN [address] [place] [address] Medication Problem Social History Tobacco [...] Date Recorded PHQ-2 Total Score 4 12/20/2021 [facility] of Occupat ional [...] updated information the water pill. Call back [phone] * Telephone Encounter - Sarah Newman - 12/21/2021 1:05 PM EDT Best contact: [phone] Patient Sissy called and stated that she contacted [facility] on and they informed that the [...] as of this encounter Care Teams Electric Arc Furnace Operator Relationship Specialty Start Date End Date Deep Pruitt APRN PCP - General 05/22/19 documented as of this encounter
--- OUTSIDE RECORDS SUMMARY | 2024-09-19 15:22 | XMS_ITS | Encounter Summary ---
Author Organization [facility] Address [address] [place] [address] Care Team Providers Care Diesel Engine Fitter Name Role Phone Romelia Pruittian Niko LOPEZ Primary Care Provider +1-2 [phone] Encounter Details Date Type Department Care Team (Late st Contact Info) Description 03/18/2021 Scanned Document [facility] [address] [place] [address] External, Provider Social History Tobacco Use Types [...] Recorded PHQ-2 Total Score 2 03/10/2021 [facility] of Occupat ional Health [...] documented as of this encounter Care Teams Diesel Engine Fitter Relationship Specialty Start Date End Date Deep Pruitt APRN PCP - General 05/22/19 documented as of this encounter
--- OUTSIDE RECORDS SUMMARY | 2024-09-19 15:23 | XMS_ITS | Encounter Summary ---
Author Organization [facility] Address [address] [place] [address] Care Team Providers Care Fashion Show Director Name Role Phone Deep Pruitt APRN Primary Care Provider Reason for Visit * Reason Comments Medication Refill Encounter Details Date Type Department Care Team ([facility] st Contact Info) Description 03/08/2021 Refill [facility] [address] [place], [place] [phone] Deep Pruitt APRN [address] [place] [address] Medication Refill Social History [...] Date Recorded PHQ-2 Total Score 2 03/10/2021 [facility]at ional [facility] [...] documented as of this encounter Care Teams Fashion Show Director Relationship Specialty Start Date End Date Deep Pruitt APRN PCP - General 05/22/19 documented as of this encounter
--- OUTSIDE RECORDS SUMMARY | 2024-09-19 15:23 | XMS_ITS | Encounter Summary ---
Author Organization [facility] Address [address] [place] [address] Care Team Providers Care Certified Adapted Physical Educator Name Role Phone Deep Pruitt APRN Primary Care Provider Reason for Visit * Reason Comments Advice Only Other Encounter Details Date Type Department Care Team ([facility] Contact Info) Description 12/02/2021 Telephone [facility] [address] [place] [address] Depe Pruitt APRN [address] [place] [address] Advice Only; Other Social History [...] 11/17/2021 [facility] of Occupat [...] Mira Rios - 12/02/2021 1:32 PM EDT [facility] - [address] calling in regards to med refill request for Carvedilol 25 mg and Gabapentin medications. Call back [phone] * Telephone Encounter - Leah Madera LPN - 12/02/2021 1:21 PM EDT Patient at * Telephone Encounter - Usha Kline - 12/02/2021 12:18 PM EDT Pt is having a lot of stomach pain on the left side and would like to speak with PCP or nurse. Requesting a call back. [facility] callback number [phone] Nigerian speaking documented in this encounter Plan of Treatment Not on file documented as of this encounter Visit Diagnoses Diagnosis Neuropathy due to type 2 diabetes mellitus (HC Code) Diabetic foot (HC Code) Type II or unspecified type diabetes mellitus with other specified manifestations, not stated as uncontrolled Essential hypertension Unspecified essential hypertension documented in this encounter Additional Health Concerns Assessment Noted Time PHQ-9 Depression Total Score: 0 11/18/19 22 10:55 AM EDT documented as of this encounter Care Teams Certified Adapted Physical Educator Relationship Specialty Start Date End Date Deep Pruitt APRN PCP - General 05/22/19 documented as of this encounter
--- OUTSIDE RECORDS SUMMARY | 2024-09-19 15:23 | XMS_ITS | Encounter Summary ---
Author Organization [facility] Address [address] [place] [address] Care Team Providers Care Drop Count Associate Name Role Phone Deep Pruitt JOHN Primary Care Provider Reason for Visit * Reason Comments Medication Refill Encounter Details Date Type Department Care Team (Late st Contact Info) Description 12/03/2021 Refill [facility] Podiatry at [address] [place] [phone] Arben Fountain, NOLVIA [address] [place] [address] Medication Refill Social History Tobacco Use [...] Date Recorded PHQ-2 Total Score 0 11/17/2021 [facility] [...] Visit Diagnoses Diagnosis Diabetic foot (HC Code) Type II or unspecified type diabetes mellitus with other specified manifestations, not stated as uncontrolled documented in this encounter Additional Health Concerns Assessment Noted Time PHQ-9 Depression Total Score: 0 11/18/19 22 10:55 AM EDT documented as of this encounter Care Teams Drop Count Associate Relationship Specialty Start Date End Date Deep Pruitt APRN PCP - General 05/22/19 documented as of this encounter
--- OUTSIDE RECORDS SUMMARY | 2024-09-19 15:23 | XMS_ITS | Encounter Summary ---
Author Organization [facility] Address [address] [place] [address] Care Team Providers Care Varnish Maker Name Role Phone Deep Pruitt APRN Primary Care Provider [phone] Reason for Visit * Reason Comments Medication Refill Encounter Details Date Type Department Care Team ([facility] st Contact Info) Description 11/17/2021 Refill [facility] [address] [place], [place] [phone] Deep Pruitt APRN [address] [place] [address] Medication Refill Social History Tobacco [...] Date Recorded PHQ-2 Total Score 0 11/17/2021 [facility] of Occupat ional Health [...] documented as of this encounter Care Teams Varnish Maker Relationship Specialty Start Date End Date Deep Pruitt APRN PCP - General 05/22/19 documented as of this encounter
--- OUTSIDE RECORDS SUMMARY | 2024-09-19 15:23 | XMS_ITS | Encounter Summary ---
Author Organization [facility] Address [address] [place] [address] Care Team Providers Care Seamer Name Role Phone Romelia Pruittian Niko LOPEZ Primary Care Provider Reason for Visit * Reason Onset Date Comments Medication Refill 11/10/2021 Encounter Details Date Type Department Care Team (Late st Contact Info) Description 11/10/2021 Refill [facility] [address] [facility] [address] [place] [phone] Anahi Rossi, JOHN [address] [place] [phone] Medication Refill Social History Tobacco Use [...] Date Recorded PHQ-2 Total Score 0 10/12/2021 [facility] of Occupat ional Health - [...] documented as of this encounter Care Teams Seamer Relationship Specialty Start Date End Date Deep Pruitt APRN PCP - General 05/22/19 documented as of this encounter
--- OUTSIDE RECORDS SUMMARY | 2024-09-19 15:23 | XMS_ITS | Encounter Summary ---
Author Organization [facility] Address [address] [place] [address] Care Team Providers Care Supervisor International Reservations Name Role Phone Romelia Pruittian Niko LOPEZ Primary Care Provider Encounter Details Date Type Department Care Team (Late st Contact Info) Description 11/30/2021 Scanned Document [facility] [address] [place] [address] External, Provider Social History Tobacco Use Types [...] Recorded PHQ-2 Total Score 0 11/17/2021 [facility] of Occupat ional Health [...] as of this encounter Care Teams Supervisor International Reservations Relationship Specialty Start Date End Date Deep Pruitt APRN PCP - General 05/22/19 documented as of this encounter
--- OUTSIDE RECORDS SUMMARY | 2024-09-19 15:23 | XMS_ITS | Encounter Summary ---
Author Organization [facility] Address [address] [place] [address] Care Team Providers Care Food Service Clerk Name Role Phone Deep Pruitt APRN Primary Care Provider Reason for Visit * Reason Comments Medication Refill Encounter Details Date Type Department Care Team ([facility] st Contact Info) Description 12/18/2021 Refill [facility] [address] [place], [place] [phone] Deep Pruitt APRN [address] [place] [address] Medication Refill Social History Tobacco [...] Date Recorded PHQ-2 Total Score 4 12/20/2021 [facility] of Occupat ional Health - [...] of this encounter Care Teams Food Service Clerk Relationship Specialty Start Date End Date Deep Pruitt APRN PCP - General 05/22/19 documented as of this encounter
--- OUTSIDE RECORDS SUMMARY | 2024-09-19 15:23 | XMS_ITS | Encounter Summary ---
Author Organization [facility] Address [address] [place] [address] Care Team Providers Care Mechanical Shovel Operator Name Role Phone Romelia Pruittian Niko LOPEZ Primary Care Provider [phone] Reason for Visit * Reason Onset Date Comments Medication Refill 11/19/2021 Encounter Details Date Type Department Care Team (Late st Contact Info) Description 11/19/2021 Refill [facility] [address] [place] [phone] Carlos Eduardo Joyner MD [address] [place] [phone] Medication Refill Social History Tobacco Use [...] Date Recorded PHQ-2 Total Score 0 11/17/2021 [facility] [...] as of this encounter Care Teams Mechanical Shovel Operator Relationship Specialty Start Date End Date Deep Pruitt APRN PCP - General 05/22/19 documented as of this encounter
--- OUTSIDE RECORDS SUMMARY | 2024-09-19 15:23 | XMS_ITS | Encounter Summary ---
Author Organization [facility] [employer] [facility] Address [address] [place] [phone] Care Team Providers Care Medical Staff Specialist Name Role Phone Deep Pruitt APRN Primary Care Provider Reason for Visit * Reason Onset Date Comments Medication Refill 11/19/2021 Encounter Details Date Type Department Care Team (Late st Contact Info) Description 11/19/2021 Refill [facility] [address] [facility] [address] [facility] 2nd [place] [address] Yue Dominguez APRN [address] [place] [phone] Medication Refill Social History Tobacco Use Types [...] as of this encounter Care Teams Medical Staff Specialist Relationship Specialty Start Date End Date Deep Pruitt APRN PCP - General 05/22/19 documented as of this encounter
--- OUTSIDE RECORDS SUMMARY | 2024-09-19 15:24 | XMS_ITS | Encounter Summary ---
Author Organization [facility] Address [address] [place] [address] Care Team Providers Care Track Repair Supervisor Name Role Phone Deep Pruitt JOHN Primary Care Provider [phone] Encounter Details Date Type Department Care Team (Late st Contact Info) Description 01/01/2018 Scanned Document [facility] [address] [place], [place] [address] Francisco Veloz PA [address] [place] [phone] Social History Tobacco Use Types Packs/Day [...] documented as of this encounter Care Teams Track Repair Supervisor Relationship Specialty Start Date End Date Deep Pruitt APRN PCP - General 05/22/19 documented as of this encounter
--- OUTSIDE RECORDS SUMMARY | 2024-09-19 15:24 | XMS_ITS | Encounter Summary ---
Author Organization [facility] Address [address] [place] [address] Care Team Providers Care Ticket Attendant Name Role Phone Deep Pruitt JOHN Primary Care Provider Encounter Details Date Type Department Care Team (Late st Contact Info) Description 01/02/2017 Scanned Document [facility] [address] [place], [place] [phone] Francisco Veloz PA [address] [place] [address] Social History Tobacco Use Types [...] documented as of this encounter Care Teams Ticket Attendant Relationship Specialty Start Date End Date Deep Pruitt APRN PCP - General 05/22/19 documented as of this encounter
--- OUTSIDE RECORDS SUMMARY | 2024-09-19 15:24 | XMS_ITS | Encounter Summary ---
Author Organization [facility] Address [address] [place] [address] Care Team Providers Care Urology Physician Assistant Name Role Phone Deep Pruitt JOHN Primary Care Provider Encounter Details Date Type Department Care Team (Late st Contact Info) Description 02/13/2018 Scanned Document [facility] [address] [place] [address] Francisco Veloz PA [address] [place] [phone] Social History Tobacco Use Types Packs/Day [...] documented as of this encounter Care Teams Urology Physician Assistant Relationship Specialty Start Date End Date Deep Pruitt APRN PCP - General 05/22/19 documented as of this encounter
--- OUTSIDE RECORDS SUMMARY | 2024-09-19 15:24 | XMS_ITS | Encounter Summary ---
Author Organization [facility] Address [address] [place] [address] Care Team Providers Care Nail Polish Brush Machine Feeder Name Role Phone Hope[facility] medina Niko LOPEZ Primary Care Provider Reason for Visit * Reason Onset Date Comments Medication Refill 11/19/2021 Encounter Details Date Type Department Care Team (Late st Contact Info) Description 11/19/2021 Refill [facility] [address] [place] [address] Audelia Childs, DDS [address] [place] [address] Medication Refill Social History Tobacco [...] Date Recorded PHQ-2 Total Score 0 11/17/2021 [facility] of Occupat ional Health - Occupational Stress [...] as of this encounter Care Teams Nail Polish Brush Machine Feeder Relationship Specialty Start Date End Date Deep Pruitt APRN PCP - General 05/22/19 documented as of this encounter
--- OUTSIDE RECORDS SUMMARY | 2024-09-19 15:24 | XMS_ITS | Encounter Summary ---
Author Organization [employer] Address [address] [facility] 7t [place] [address] Care Team Providers Care Hog Pusher Name Role Phone Katrin Santoyo MD Primary Care Pro vider Edison Vieira MD Unavailable [phone] Joe Devi MD Unavailable [phone] Reason for Visit * Reason Comments Med Refill Encounter Details Date Type Department Care Team (Late st Contact Info) Description 01/02/2023 Refill [facility] [address] [place] [address] Elise Stanford FNP [address] [place] [address] Dept [place] [address] Hemorrhoids, unspecified hemorrhoid type Social History Tobacco [...] Miscellaneous Notes * Telephone Encounter - Katrin Lópze MD - 01/03/2023 5:26 PM EDT From previous PCP note pt was not using med-will clarify before sensing med documented in this encounter Plan of Treatment Upcoming Encounters Date Type Department Care Team (Late st Contact Info) Description 10/07/2024 1:00 PM EDT Clinical Support [facility] [place] [address] 11/01/2024 1:15 PM EDT Office Visit [address] [address] [place] [address] 11/12/2024 9:45 AM EDT Office Visit [facility] [place] [address] documented as of this encounter Goals Goal Patient Goal Type Associated Problems Recent Progress Patient-Stated? Author Blood Pressure < 140/90 Blood Pressure 134/78(2024 1:13 PM EDT) No Piers-Gambl e, Eve, PharmD Hemoglobin A1c < 7 Result Component 10.2(08/23/19 25 1:13 PM EDT) No Piers-Gambl e, Eve, PharmD documented as of this encounter Visit Diagnoses Diagnosis Hemorrhoids, unspecified hemorrhoid type documented in this encounter Additional Health Concerns Assessment Noted Time PHQ-9 Depression Total Score: 24 023 2:05 PM EDT documented as of this encounter Care Teams Hog Pusher Relationship Specialty Start Date End Date Katrin Santoyo MD [address] [place] [address] PCP - General Internal Medicine 12/13/22 Edison Vieira MD [address] [place] [address] Pulmonary Disease 04/07/24 Joe Devi MD [address]rd [place] [address] Gastroenterology 04/07/24 Carito Roche DNP [address] [facility], [address] [place] [address] Nephrology 04/07/24 Managed Methods 04/11/24 documented as of this encounter
--- OUTSIDE RECORDS SUMMARY | 2024-09-19 15:24 | XMS_ITS | Encounter Summary ---
Author Organization [facility] Address [address] [place] [address] Care Team Providers Care Worship Leader Name Role Phone Deep Pruitt JOHN Primary Care Provider [phone] Encounter Details Date Type Department Care Team (Late st Contact Info) Description 09/26/2016 Scanned Document [facility] [address] [place], [place] [phone] External, Provider Social History Tobacco Use Types [...] documented as of this encounter Care Teams Worship Leader Relationship Specialty Start Date End Date Deep Pruitt APRN PCP - General 05/22/19 documented as of this encounter
--- OUTSIDE RECORDS SUMMARY | 2024-09-19 15:24 | XMS_ITS | Clinical Summary ---
Author Organization [facility] Address [address] [place] [address] Phone Care Team Providers Care Custodian Name Role Phone Physician, No Pcp Primary [...] a day with meals. 08/26/19 23 Active clonazePAM (KlonoPIN) 0.5 mg tablet Take [...] mouth 1 (one) time each day. 08/10/19 Active olmesartan (BENICAR) 20 mg tablet Take [...] pain. Max Daily Amount: 150 mg 02/05/20 24 Active ziprasidone (GEODON) 80 mg capsule Take 1 capsule (80 mg total) by mouth at bedtime. at bedtime Active cyclobenzaprine (FLEXERIL) 10 mg tablet Take 1 tablet (10 mg total) by mouth 2 (two) times a day if needed for muscle spasms for up to 3 days. 6 each 04/08/20 24 Active cholecalciferol (VITAMIN D-3) 50 mcg (2,000 unit) tablet Take 1 tablet (2,000 Units total) by mouth daily. 09/19/19 24 025 Immunizations Name Administration Dates Next Due Moderna SARS-CoV-2 COVID-19, mRNA, LNP-S, preservative free 08/28/2020,07/28/2020 Pfizer SARS-CoV-2 COVID-19, mRNA, LNP-S, preservative free 04/14/2021 Medical History Medical History Date Comments Diabetes mellitus ([facility] V24, [facility] V28) Hypertension REGI (obstructive sleep apnea) Social History [...] age to complete this topic Meningococcal B Vaccine Aged Out No l onger eligible based on patient's age to complete [...] * Annual BMP Blood Test (11/07/2023) Pathologist [facility] Annual BMP Blood Test Abstracted Historical Provider HEALTH MAINTENANCE Final Result * Lipid panel (09/19/2023) Pathologist [facility] Triglycerides 0 mg/dL Comment:No interpretation Cholesterol 0 mg/dL Comment:No interpretation HDL 0 mg/dL Comment:No interpretation LDL Cholesterol 0 mg/dL Comment:No interpretation Blood Venous blood specimen / Unknown Historical Provider LAB BLOOD ORDERABLES Fauzia l Result * Urine Albumin Creatinine Ratio (05/19/2023) Pathologist [facility] Urine Albumin Creatinine Ratio Abstracted us Historical Provider HEALTH MAINTENANCE Final Result * Hemoglobin A1c (05/17/2023) Pathologist [facility] Hemoglobin A1C 0.0 % Comment:No interpretation Blood Venous blood specimen / Unknown Result [facility] Provider LAB BLOOD ORDERABLES Fauzia l Result * HIV Screening (12/06/2022) HIV Screening Abstracted Result [facility] Provider HEALTH MAINTENANCE Final Result * Hepatitis C Screening (12/06/2022) Pathologist [facility] Hepatitis C Screening Abstracted Result [facility] Provider HEALTH MAINTENANCE Final Result from Last 3 Months or Most Recently Relevant to Health Maintenance [place] Care Teams Custodian Relationship Specialty Start Date End Date Physician, No Pcp PCP - General 04/08/24
--- OUTSIDE RECORDS SUMMARY | 2024-09-19 15:24 | XMS_ITS | Encounter Summary ---
Author Organization [facility] Address [address] [place] [address] Care Team Providers Care Senior Compensation Consultant Name Role Phone Deep Pruitt APRN Primary Care Provider Reason for Visit * Reason Onset Date Comments Medication Refill 11/10/2021 Encounter Details Date Type Department Care Team (Late st Contact Info) Description 11/10/2021 Refill [facility] [address] [facility] [address] [facility] 2nd [place] [address] Taylor Malagon, [facility] [address] [place] [phone] Medication Refill Social History Tobacco Use Types [...] Date Recorded PHQ-2 Total Score 0 10/12/2021 [facility] of Occupat ional [facility] - Occupational Stress Questionnaire Answer [...] as of this encounter Care Teams Senior Compensation Consultant Relationship Specialty Start Date End Date Deep Pruitt APRN PCP - General 05/22/19 documented as of this encounter
--- OUTSIDE RECORDS SUMMARY | 2024-09-19 15:24 | XMS_ITS | Encounter Summary ---
Author Organization [facility] Address [address] [place] [address] Care Team Providers Care Lightout Examiner Name Role Phone Deep Pruitt APRN Primary Care Provider Reason for Visit * Reason Comments Other Advice Only Encounter Details Date Type Department Care Team ([facility] Contact Info) Description 10/20/2021 Telephone [facility] [address] [place] [address] Depe Pruitt APRN [address] [place] [address] Other; Advice Only Social History [...] Date Recorded PHQ-2 Total Score 0 10/12/2021 [facility] [...] legs have not stops hurting. Contact number [phone] documented in this encounter Plan of Treatment Not on file documented as of this encounter Visit Diagnoses Not on filedocumented in this encounter Additional Health Concerns Assessment Noted Time PHQ-9 Depression Total Score: 0 10/13/19 22 2:23 PM EDT documented as of this encounter Care Teams Lightout Examiner Relationship Specialty Start Date End Date Deep Pruitt APRN PCP - General 05/22/19 documented as of this encounter
--- OUTSIDE RECORDS SUMMARY | 2024-09-19 15:24 | XMS_ITS | Encounter Summary ---
Author Organization [facility] Address [address] [place] [address] Care Team Providers Care Manager Trainee Name Role Phone Deep Pruitt JOHN Primary Care Provider Encounter Details Date Type Department Care Team (Late st Contact Info) Description 02/12/2016 Scanned Document [facility] [address] [place] [address] Francisco Veloz PA [address] [place] [phone] Social History Tobacco Use Types Packs/Day [...] as of this encounter Care Teams Manager Trainee Relationship Specialty Start Date End Date Deep Pruitt APRN PCP - General 05/22/19 documented as of this encounter
--- OUTSIDE RECORDS SUMMARY | 2024-09-19 15:24 | XMS_ITS | Encounter Summary ---
Author Organization [facility] Address [address] [place] [address] Care Team Providers Care Contract Clerk Name Role Phone Deep Pruitt JOHN Primary Care Provider Encounter Details Date Type Department Care Team (Late st Contact Info) Description 04/05/2017 Scanned Document [facility] [address] [place], [place] [phone] Francisco Veloz PA [address] [place] [phone] Social History Tobacco Use Types Packs/Day [...] as of this encounter Care Teams Contract Clerk Relationship Specialty Start Date End Date Deep Pruitt APRN PCP - General 05/22/19 documented as of this encounter
--- OUTSIDE RECORDS SUMMARY | 2024-09-19 15:24 | XMS_ITS | Encounter Summary ---
Author Organization [facility] Address [address] [place] [address] Care Team Providers Care Mottler Operator Name Role Phone Deep Pruitt APRN Primary Care Provider Encounter Details Date Type Department Care Team ([facility] st Contact Info) Description 10/27/2021 Scanned Document [facility] [address] [place], [place] [phone] Deep Pruitt APRN [address] [place] [address] Social History Tobacco Use Types [...] PHQ-2 Total Score 0 10/12/2021 [facility] of Occupat ional Health - [...] documented as of this encounter Care Teams Mottler Operator Relationship Specialty Start Date End Date Deep Pruitt APRN PCP - General 05/22/19 documented as of this encounter
--- OUTSIDE RECORDS SUMMARY | 2024-09-19 15:24 | XMS_ITS | Encounter Summary ---
Author Organization [facility] [employer] [facility] and [facility] Address [address] [place] [address] Care Team Providers Care Corrective Therapy Aide Teacher Name Role Phone Deep Pruitt APRN Primary Care Provider Reason for Visit * Reason Onset Date Comments Medication Refill 11/10/2021 Encounter Details Date Type Department Care Team (Late st Contact Info) Description 11/10/2021 Refill [facility] at [address] [place] [address] Anahi Rossi, JOHN [address] [place] [address] Medication Refill Social History Tobacco [...] Date Recorded PHQ-2 Total Score 0 10/12/2021 [facility] of Occupat ional [facility] [...] documented as of this encounter Care Teams Corrective Therapy Aide Teacher Relationship Specialty Start Date End Date Deep Pruitt APRN PCP - General 05/22/19 documented as of this encounter
--- OUTSIDE RECORDS SUMMARY | 2024-09-19 15:24 | XMS_ITS | Encounter Summary ---
Author Organization [facility] [employer] [facility] and [facility] Address [address] [place] [address] Care Team Providers Care Insurance Adjuster Name Role Phone Deep Pruitt APRN Primary Care Provider Reason for Visit * Reason Onset Date Comments Medication Refill 11/10/2021 Encounter Details Date Type Department Care Team (Late st Contact Info) Description 11/10/2021 [facility]ill [facility] [address] [facility] [address] [facility] 2nd [place] [address] Taylor Malagon, [facility] [address] [place] [phone] Medication Refill Social History Tobacco Use Types [...] Date Recorded PHQ-2 Total Score 0 10/12/2021 [facility] of Occupat ional [facility] - Occupational Stress Questionnaire Answer Date [...] today, but unknown at home. Defer to [facility] pharmacy team for antihypertensive management. [...] as of this encounter Care Teams Insurance Adjuster Relationship Specialty Start Date End Date Deep Pruitt APRN PCP - General 05/22/19 documented as of this encounter
--- OUTSIDE RECORDS SUMMARY | 2024-09-19 15:24 | XMS_ITS | Encounter Summary ---
Author Organization [facility] Address [address] [place] [address] Care Team Providers Care Estimate Clerk Name Role Phone Deep Pruitt JONH Primary Care Provider Encounter Details Date Type Department Care Team (Late st Contact Info) Description 01/17/2019 Scanned Document [facility] [address] [place], [place] [address] External, Provider Social History Tobacco Use Types [...] documented as of this encounter Care Teams Estimate Clerk Relationship Specialty Start Date End Date Deep Pruitt APRN PCP - General 05/22/19 documented as of this encounter
--- OUTSIDE RECORDS SUMMARY | 2024-09-19 15:24 | XMS_ITS | Clinical Summary ---
Author Organization [facility] Address [address] [facility] [address] [place] [address] Phone Care Team Providers Care Refinery Superintendent Name Role Phone Katrin Brumfield Primary Care [...] 4 12/04/19 25 Active ergocalciferol 1.25 MG (89769 UT) capsule Take 1 capsule (50,000 Units [...] (01/25/2023): information and pathology of colonospcy in [employer] [facility] 09-09-2020 note Asthma 01/06/2023 01/25/2023 Arthritis 01/06/2023 [...] AM with Arben Fountain DPM at the [facility] -Will f/u with Pt in a [...] (see MRI of Brain from 2017 under [facility] -Significant deficits on neurologic exam Memory loss and Left handed weakness -Imaging and prior evaluation -Current blood thinning agents is aspirin -Potential details to include, when relevant: poor GAIT, uses a walker to get around -How the diagnosis was made: Pt lived in [facility] at the time, Under [facility] see specific file at specific date [id number] Image MRI Result [facility] - MRI BRAIN CVA -09/25/2016 [id number] Image Evaluation [facility]- Left handed weakness note - 02/20/2017 ?? [...] 2019, the Pt needs to call the [facility] [address] [place], [place] [phone] Diabetic foot 02/07/2019 01/25/2023 01/25/2023 Overview (01/25/2023): Last Assessment & Plan: The Pt continues to deal with bilateral foot pain and wears a pair of Diabetic shoes with specification ordered by his Porcelain Finisher Doctor Patient encounter status 02/07/2019 01/25/2023 Overview [...] -Pt will be called biweekly by the [facility] Nurse to review his FBS finger sticks [...] medications -He has been following with the [facility] and reports taking all of [...] decided to move his family back to [place] area due to being closer to family [...] - 6.0 % 10.4 10.7 10.6 Immunizations Immunization Administration Dates Next Due Influenza, Quadrivalent, Preservative [...] Diabetes: Visual Foot Exam 11/07/2022 Pneumococcal Vaccine: 50+ Ye ars (2 of 2 - PCV) 03/24/2023 03/24/2022, 01/21/2021 Diabetes: Hemoglobin A1C 06/27/2024 024, 09/19/2023, 09/08/2023, Additional history exists Colorectal Cancer Screening: Colonoscopy 01/25/2033 01/25/2023 Pneumococcal Vaccine: Peds ( 0 to 5 Years) and At-Risk Patients (6 to 49 Years) Discontinued 03/24/2022, 01/21/2021 Influenza Vaccine Completed 02/01/2024, , 03/24/2022, Additional history exists [place] Care Teams Refinery Superintendent Relationship Specialty Start Date End Date Katrin Brumfield [address] [place] [address] PCP - General 04/17/23
--- OUTSIDE RECORDS SUMMARY | 2024-09-19 15:24 | XMS_ITS | Encounter Summary ---
Author Organization [facility] Address [address] [place] [address] Care Team Providers Care Cork Sorter Name Role Phone Deep Pruitt JOHN Primary Care Provider Encounter Details Date Type Department Care Team (Late st Contact Info) Description 11/22/2017 Scanned Document [facility] [address] [place], [place] [phone] Francisco Veloz PA [address] [place] [address] Social History Tobacco Use Types [...] documented as of this encounter Care Teams Cork Sorter Relationship Specialty Start Date End Date Deep Pruitt APRN PCP - General 05/22/19 documented as of this encounter
--- OUTSIDE RECORDS SUMMARY | 2024-09-19 15:24 | XMS_ITS | Encounter Summary ---
Author Organization [facility] Address [address] [place] [address] Care Team Providers Care Pre Billing Specialist Name Role Phone Deep Pruitt JOHN Primary Care Provider Encounter Details Date Type Department Care Team (Late st Contact Info) Description 02/20/2017 Scanned Document [facility] [address] [place] [address] Francisco Veloz PA [address] [place] [phone] Social History Tobacco Use Types Packs/Day [...] documented as of this encounter Care Teams Pre Billing Specialist Relationship Specialty Start Date End Date Deep Pruitt APRN PCP - General 05/22/19 documented as of this encounter
--- OUTSIDE RECORDS SUMMARY | 2024-09-19 15:25 | XMS_ITS | Encounter Summary ---
Author Organization [facility] [employer] [facility] and [facility] Address [address] [place] [address] Care Team Providers Care Mold Engraver Name Role Phone Deep Pruitt APRN Primary Care Provider Reason for Visit * Reason Onset Date Comments Medication Refill 09/22/2021 Encounter Details Date Type Department Care Team (Late st Contact Info) Description 09/22/2021 Refill [facility] at [address] [phone] [facility] 2nd [place] [address] Kaity Harris, MEDICAL ONCOLOGIST [address] [place] [phone] Medication Refill Social History Tobacco Use Types [...] Date Recorded PHQ-2 Total Score 5 09/14/2021 [facility] - Occupational Stress Questionnaire Answer [...] as of this encounter Care Teams Mold Engraver Relationship Specialty Start Date End Date Deep Pruitt APRN PCP - General 05/22/19 documented as of this encounter
--- OUTSIDE RECORDS SUMMARY | 2024-09-19 15:25 | XMS_ITS | Encounter Summary ---
Author Organization [facility] Address [address] [place] [address] Care Team Providers Care Manufacturing Machine Operator Name Role Phone [place]Deep medina Niko LOPEZ Primary Care Provider Encounter Details Date Type Department Care Team (Late st Contact Info) Description 02/19/2020 Scanned Document [facility] [address] [place], [place] [phone] Arben Fountain, NOLVIA [address] [place] [address] Social History Tobacco Use Types Packs/Day [...] Answer Date Recorded PHQ-2 Score 2 10/02/2019 [facility] [place] of Occupat ional Health - Occupational Stress [...] as of this encounter Care Teams Manufacturing Machine Operator Relationship Specialty Start Date End Date Deep Pruitt APRN PCP - General 05/22/19 documented as of this encounter
--- OUTSIDE RECORDS SUMMARY | 2024-09-19 15:25 | XMS_ITS | Encounter Summary ---
Author Organization [facility] Address [address] [place] [address] Care Team Providers Care I&C Technician Name Role Phone Deep Pruitt APRN Primary Care Provider Reason for Visit * Reason Comments Other Appointment Encounter Details Date Type Department Care Team ([facility] Contact Info) Description 10/07/2021 Telephone [facility] [address] [place] [address] Deep Pruitt APRN [address] [place] [address] Other; Appointment Social History Tobacco [...] Date Recorded PHQ-2 Total Score 0 10/07/2021 [facility] of Occupat ional Health - Occupational [...] after dropped call ,patient has virtual appt [phone] documented in this encounter Plan of Treatment Not on file documented as of this encounter Visit Diagnoses Not on filedocumented in this encounter Additional Health Concerns Infection Onset Date Last Indicated Resolved Time COVID-19 09/29/2021 09/29/2021 10/19/2021 7:19 PM EDT Assessment Noted Time PHQ-9 Depression Total Score: 0 10/08/19 22 1:27 PM EDT documented as of this encounter Care Teams I&C Technician Relationship Specialty Start Date End Date Deep Pruitt APRN PCP - General 05/22/19 documented as of this encounter
--- OUTSIDE RECORDS SUMMARY | 2024-09-19 15:25 | XMS_ITS | Encounter Summary ---
Author Organization [facility] [employer] [facility] and [facility] Address [address] [place] [address] Care Team Providers Care Glass Cut Off Supervisor Name Role Phone Deep Pruitt APRN Primary Care Provider Reason for Visit * Reason Onset Date Comments Medication Refill 09/20/2021 Encounter Details Date Type Department Care Team (Late st Contact Info) Description 09/20/2021 Refill [facility] [address] [facility] 800 [facility] 2nd [place] [address] Ricarda Du MD [address] [place] [phone] Medication Refill Social History Tobacco Use Types [...] documented as of this encounter Care Teams Glass Cut Off Supervisor Relationship Specialty Start Date End Date Deep Pruitt APRN PCP - General 05/22/19 documented as of this encounter
--- OUTSIDE RECORDS SUMMARY | 2024-09-19 15:25 | XMS_ITS | Encounter Summary ---
Author Organization [employer] Address [address] [facility] 7t [place] [address] Care Team Providers Care Bottom Worker Name Role Phone Katrin Santoyo MD Primary Care Pro vider Edison Vieira MD Unavailable [phone] Joe Devi MD Unavailable Reason for Visit * Reason Onset Date Comments Referral 04/05/2023 Encounter Details Date Type Department Care Team (Late st Contact Info) Description 04/05/2023 Telephone [facility] MEDICINE [address] [place], [place] [phone] Katrin Santoyo MD [address] [place] [address] Referral Social History Tobacco Use Types Packs/Day [...] Bhardwaj - 04/06/2023 10:27 AM EST Called [facility] Gastro for an update and they stated [...] Gastro made on 04/04/2023 sent to [address] [facility], states that they called facility and facility informs that their missing a summary form. Please contact pt at [phone] Citizen [place] Speaker documented in this encounter Plan of Treatment Upcoming Encounters Date Type Department Care Team ([facility] st Contact Info) Description 10/07/2024 1:00 PM EDT Clinical Support [facility] MEDICINE [address] [place] [phone] 11/01/2024 1:15 PM EDT Office Visit [facility] MEDICINE [address] [place] [address] Katrin Santoyo MD [address] [place] [address] 11/12/2024 9:45 AM EDT Office Visit [facility] MEDICINE [address] [place] [address] documented as of this encounter Goals Goal [...] documented as of this encounter Care Teams Bottom Worker Relationship Specialty Start Date End Date Katrin Santoyo MD [address] [place] [address] PCP - General Internal Medicine 12/13/22 Edison Vieira MD [address] [place] [address] Pulmonary Disease 04/07/24 Joe Devi MD 11 [facility] 3rd [place] [address] Gastroenterology 04/07/24 Carito Roche DNP [address], [address] [place] [address] Nephrology 04/07/24 [facility] 04/11/24 documented as of this encounter
--- OUTSIDE RECORDS SUMMARY | 2024-09-19 15:25 | XMS_ITS | Encounter Summary ---
Author Organization [facility] and [facility] Address [address] [place] [address] Care Team Providers Care Premium Card Cancellation Clerk Name Role Phone Deep Pruitt APRN Primary Care Provider Reason for Visit * Reason Onset Date Comments Medication Refill 10/12/2021 Encounter Details Date Type Department Care Team (Late st Contact Info) Description 10/12/2021 Refill [facility] at [address] [place] [address] Anahi Rossi, JOHN [address] [place] [address] Medication Refill Social History Tobacco [...] Date Recorded PHQ-2 Total Score 0 10/12/2021 [facility] of Occupat ional [facility] [...] documented as of this encounter Care Teams Premium Card Cancellation Clerk Relationship Specialty Start Date End Date Deep Pruitt APRN PCP - General 05/22/19 documented as of this encounter
--- OUTSIDE RECORDS SUMMARY | 2024-09-19 15:25 | XMS_ITS | Encounter Summary ---
Author Organization [facility] Address [address] [place] [address] Care Team Providers Care Clinical Ob Name Role Phone Deep Pruitt APRN Primary Care Provider Encounter Details Date Type Department Care Team ([facility] st Contact Info) Description 11/14/2020 Scanned Document [facility] [address] [place], [place] [phone] Deep Pruitt APRN [address] [place] [address] Social History Tobacco Use Types [...] Total Score 0 11/18/2020 [facility] of Occupat [...] as of this encounter Care Teams Clinical Ob Relationship Specialty Start Date End Date Deep Pruitt APRN PCP - General 05/22/19 documented as of this encounter
--- OUTSIDE RECORDS SUMMARY | 2024-09-19 15:25 | XMS_ITS | Encounter Summary ---
Author Organization [facility] Address [address] [place] [address] Care Team Providers Care Geoduck Diver Name Role Phone Deep Pruitt APRN Primary Care Provider Reason for Visit * Reason Comments Medication Refill Encounter Details Date Type Department Care Team ([facility] st Contact Info) Description 02/01/2021 Refill [facility] [address] [place], [place] [phone] Deep Pruitt APRN [address] [place] [address] Medication Refill Social History Tobacco [...] Date Recorded PHQ-2 Total Score 6 01/21/2021 [facility] of Occupat ional [...] documented as of this encounter Care Teams Geoduck Diver Relationship Specialty Start Date End Date Deep Pruitt APRN PCP - General 05/22/19 documented as of this encounter
--- OUTSIDE RECORDS SUMMARY | 2024-09-19 15:25 | XMS_ITS | Encounter Summary ---
Author Organization [employer] Address 75 [facility] 7t [place] [address] Care Team Providers Care Bobcat Driver/Labor Name Role Phone Elise Stanford MEDICAL SERVICE TECHNICIAN Primary Care Provider [phone] Katrin Santoyo MD Primary Care Pro vider Edison Vieira MD Unavailable [phone] Joe Devi MD Unavailable [phone] Encounter Details Date Type Department Care Team (Late st Contact Info) Description 12/06/2022 Telephone [facility] MEDICINE [address] [place] [address] Susan Manzano LPN Social History Tobacco Use [...] call from [place] with [facility] Lab. Patient glucose reported as 411 today. Triage call to follow with patient. Please update PCP with critical result. documented in this encounter Plan of Treatment Upcoming Encounters Date Type Department Care Team (Late st Contact Info) Description 10/07/2024 1:00 PM EDT Clinical Support [address] [address] 11/01/2024 1:15 PM EDT Office Visit [address] [address] Katrin Santoyo MD [address] [place] [address] 11/12/2024 9:45 AM EDT Office Visit [address] [address] documented as of this encounter Visit Diagnoses Not on filedocumented in this encounter Additional Health Concerns Assessment Noted Time PHQ-9 Depression Total Score: 24 023 2:05 PM EDT documented as of this encounter Care Teams Bobcat Driver/Labor Relationship Specialty Start Date End Date Elise Stanford FNP PCP - General Family Medicine 11/24/22 12/12/22 Katrin Santoyo MD [address] [place] [address] PCP - General Internal Medicine 12/13/22 Edison Vieira MD 5 [place] [address] Pulmonary Disease 04/07/24 Joe Devi MD 11 [facility] 3rd [place] [address] Gastroenterology 04/07/24 Carito [address] DNP 10 [facility], [address] [place] [address] Nephrology 04/07/24 [facility] 04/11/24 documented as of this encounter
--- OUTSIDE RECORDS SUMMARY | 2024-09-19 15:25 | XMS_ITS | Encounter Summary ---
Author Organization [facility] Address [address] [place] [address] Care Team Providers Care Health And Wellness Coordinator Name Role Phone [place]Deep medina Niko LOPEZ Primary Care Provider Encounter Details Date Type Department Care Team (Late st Contact Info) Description 02/19/2020 Scanned Document [facility] [address] [place], [place] [phone] Arben Fountain, NOLVIA [address] [place] [address] Social History Tobacco Use Types Packs/Day [...] Answer Date Recorded PHQ-2 Score 2 10/02/2019 [facility] [place] of Occupat ional Health - Occupational Stress [...] as of this encounter Care Teams Health And Wellness Coordinator Relationship Specialty Start Date End Date Deep Pruitt APRN PCP - General 05/22/19 documented as of this encounter
--- OUTSIDE RECORDS SUMMARY | 2024-09-19 15:25 | XMS_ITS | Encounter Summary ---
Author Organization [employer] Address 75 [facility] 7t [place] [address] Care Team Providers Care Wheel And Pinion Inspector Name Role Phone Elise Stanford POLYMERIZATION OVEN TENDER Primary Care Provider [phone] Katrin Santoyo MD Primary Care Pro vider Edison Vieira MD Unavailable [phone] Joe Devi MD Unavailable [phone] Encounter Details Date Type Department Care Team (Late st Contact Info) Description 12/06/2022 Telephone [facility] MEDICINE [address] [place] [address] Susan Manzano LPN Social History Tobacco Use [...] glucose of 411 today. Call placed via [employer] nut chopper [phone] patient updated that BG this morning elevated. [...] Description 10/07/2024 1:00 PM EDT Clinical Support [address] [address] 11/01/2024 1:15 PM EDT Office Visit [address] [address] Katrin Santoyo MD [address] [place] [address] 11/12/2024 9:45 AM EDT Office Visit [address] [address] documented as of this encounter Visit Diagnoses Not on filedocumented in this encounter Additional Health Concerns Assessment Noted Time PHQ-9 Depression Total Score: 24 11/18/ 023 2:05 PM EDT documented as of this encounter Care Teams Wheel And Pinion Inspector Relationship Specialty Start Date End Date Elise Stanford FNP PCP - General Family Medicine 11/24/22 12/12/22 Katrin Santoyo MD [address] [place] [address] PCP - General Internal Medicine 12/13/22 Edison Vieira MD [address] [place] [address] Pulmonary Disease 04/07/24 Joe Devi MD 11 [facility] 3rd [place] [address] Gastroenterology 04/07/24 Carito Roche DNP 10 [facility], [address] [place] [address] Nephrology 04/07/24 [employer] 04/11/24 documented as of this encounter
--- OUTSIDE RECORDS SUMMARY | 2024-09-19 15:25 | XMS_ITS | Encounter Summary ---
Author Organization [facility] Address [address] [place] [address] Care Team Providers Care Patient Transporter Name Role Phone Deep Pruitt APRN Primary Care Provider [phone] Reason for Visit * Reason Comments Medication Refill Encounter Details Date Type Department Care Team ([facility] st Contact Info) Description 11/05/2020 Refill [facility] [address] [place] [address] Deep Pruitt APRN [address] [place] [phone] Medication Refill Social History Tobacco Use [...] [facility] of Occupat ional [facility] - Occupational Stress Questionnaire Answer [...] as of this encounter Care Teams Patient Transporter Relationship Specialty Start Date End Date Deep Pruitt APRN PCP - General 05/22/19 documented as of this encounter
--- OUTSIDE RECORDS SUMMARY | 2024-09-19 15:25 | XMS_ITS | Encounter Summary ---
Author Organization [facility] Address [address] [place] [address] Care Team Providers Care Silo Operator Name Role Phone Feura BushDeep medina Niko LOPEZ Primary Care Provider Reason for Visit * Reason Onset Date Comments Medication Refill 09/22/2021 Encounter Details Date Type Department Care Team (Late st Contact Info) Description 09/22/2021 Refill [facility] Nutrition at [address] [address] Zena Hines PA [address] [place] [phone] Medication Refill Social History Tobacco Use [...] Date Recorded PHQ-2 Total Score 5 09/14/2021 [facility] of Occupat ional Health - [...] is no longer seeing Zena Hines at [facility] for DM mangement. Nate, Katrin [...] documented as of this encounter Care Teams Silo Operator Relationship Specialty Start Date End Date Deep Pruitt APRN PCP - General 05/22/19 documented as of this encounter
--- OUTSIDE RECORDS SUMMARY | 2024-09-19 15:25 | XMS_ITS | Encounter Summary ---
Author Organization [facility] Address [address] [place] [address] Care Team Providers Care Sandstone Splitter Name Role Phone Deep Pruitt APRN Primary Care Provider Reason for Visit * Reason Comments Medication Refill Encounter Details Date Type Department Care Team ([facility] st Contact Info) Description 12/29/2020 Refill [facility] [address] [place] [address] Deep Pruitt APRN [address] [place] [phone] Medication Refill Social History Tobacco Use [...] Recorded PHQ-2 Total Score 0 11/18/2020 [facility] of Occupat [...] documented as of this encounter Care Teams Sandstone Splitter Relationship Specialty Start Date End Date Deep Pruitt APRN PCP - General 05/22/19 documented as of this encounter
--- OUTSIDE RECORDS SUMMARY | 2024-09-19 15:25 | XMS_ITS | Encounter Summary ---
Author Organization [employer] Address [address] [facility] [address]t [place] [address] Care Team Providers Care Gas Furnace Installer Name Role Phone Katrin Santoyo MD Primary Care Pro vider Edison Vieira MD Unavailable [phone] Joe Devi MD Unavailable [phone] Encounter Details Date Type Department Care Team (Late st Contact Info) Description 06/21/2023 Abstract [facility] [address] [place], [place] [phone] Katrin Santoyo MD [address] [place] [address] Social History Tobacco Use Types Packs/Day Years [...] Description 10/07/2024 1:00 PM EDT Clinical Support [address] [address] 11/01/2024 1:15 PM EDT Office Visit [address] [address] Katrin Santoyo MD [address] [place] [address] 11/12/2024 9:45 AM EDT Office Visit [address] [address] documented as of this encounter Goals Goal [...] as of this encounter Care Teams Gas Furnace Installer Relationship Specialty Start Date End Date Katrin Santoyo MD [address] [place] [phone] PCP - General Internal Medicine 8/8/23 Edison Vieira MD [address] [place] [address] Pulmonary Disease 04/07/24 Joe Devi MD [address]rd [place] [address] Gastroenterology 04/07/24 Carito Roche DNP [address], [address] [place] [address] Nephrology 04/07/24 [facility] 04/11/24 documented as of this encounter
--- OUTSIDE RECORDS SUMMARY | 2024-09-19 15:25 | XMS_ITS | Encounter Summary ---
Author Organization [facility] Address [address] [place] [address] Care Team Providers Care Instructor Decorating Name Role Phone [place] Niko LOPEZ Primary Care Provider Reason for Visit * Reason Onset Date Comments Medication Refill 10/12/2021 Encounter Details Date Type Department Care Team (Late st Contact Info) Description 10/12/2021 Refill [facility] [address] [place] [address] Cecile Oneal, DMD [address] [place] [address] Medication Refill Social History Tobacco [...] as of this encounter Care Teams Instructor Decorating Relationship Specialty Start Date End Date Deep Pruitt APRN PCP - General 05/22/19 documented as of this encounter
--- OUTSIDE RECORDS SUMMARY | 2024-09-19 15:25 | XMS_ITS | Encounter Summary ---
Author Organization [facility] Address [address] [place] [address] Care Team Providers Care Neurological Physiotherapist Name Role Phone Deep Pruitt APRN Primary Care Provider Reason for Visit * Reason Comments Medication Refill Encounter Details Date Type Department Care Team ([facility] st Contact Info) Description 01/29/2021 Refill [facility] [address] [place], [place] [phone] Deep Pruitt APRN [address] [place] [address] Medication Refill Social History Tobacco [...] Recorded PHQ-2 Total Score 6 01/21/2021 [facility] of Occupat [...] documented as of this encounter Care Teams Neurological Physiotherapist Relationship Specialty Start Date End Date Deep Pruitt APRN PCP - General 05/22/19 documented as of this encounter
--- OUTSIDE RECORDS SUMMARY | 2024-09-19 15:25 | XMS_ITS | Encounter Summary ---
Author Organization [facility] Address [address] [place] [phone] Care Team Providers Care Heat Treater Apprentice Name Role Phone Deep Pruitt APRN Primary Care Provider Reason for Visit * Reason Onset Date Comments Medication Refill 09/30/2021 Encounter Details Date Type Department Care Team (Late st Contact Info) Description 09/30/2021 Refill [facility] [address] [facility] [address] [facility] 2nd [place] [address] Rubin Valderrama, [facility] [address] [place] [phone] Medication Refill Social History Tobacco Use Types [...] 5 09/14/2021 [facility] - Occupational Stress Questionnaire Answer Date Recorded [...] today, but unknown at home. Defer to [facility] pharmacy team for antihypertensive management. Current [...] documented as of this encounter Care Teams Heat Treater Apprentice Relationship Specialty Start Date End Date Deep Pruitt APRN PCP - General 05/22/19 documented as of this encounter
--- OUTSIDE RECORDS SUMMARY | 2024-09-19 15:25 | XMS_ITS | Encounter Summary ---
Author Organization [employer] Address [address] [facility] 7t [place] [address] Care Team Providers Care Vessel Scrapper Helper Name Role Phone Elise Stanford OUTBOUND CALL CENTER REPRESENTATIVE Primary Care Provider [phone] Katrin Santoyo MD Primary Care Pro vider Edison Vieira MD Unavailable [phone] Joe Devi MD Unavailable [phone] Encounter Details Date Type Department Care Team (Latest Contact Info) Description 09/04/2018 Abstract [facility] CONVERSIONS Dental, Provider, DDS Social History [...] Description 10/07/2024 1:00 PM EDT Clinical Support [facility] [address] [place] [address] 11/01/2024 1:15 PM EDT Office Visit [facility] [address] [place] [address] Katrin Santoyo MD [address] [place] [address] 11/12/2024 9:45 AM EDT Office Visit [address] [address] documented as of this encounter Visit Diagnoses Not on filedocumented in this encounter Care Teams Vessel Scrapper Helper Relationship Specialty Start Date End Date Elise Stanford FNP PCP - General Family Medicine 11/24/22 12/12/22 Katrin Santoyo MD [address] [place] [address] PCP - General Internal Medicine 12/13/22 Edison Vieira MD [address] [place] [address] Pulmonary Disease 04/07/24 Joe Devi MD [address] [facility] 3rd [place] [address] Gastroenterology 04/07/24 Carito Roche DNP [address] [facility], [address] [place] [address] Nephrology 04/07/24 [facility] 04/11/24 documented as of this encounter
--- OUTSIDE RECORDS SUMMARY | 2024-09-19 15:25 | XMS_ITS | Clinical Summary ---
Author Organization [employer] Address [address] [facility] [address] [place] [address] Care Team Providers Care Seafood Specialist Name Role Phone Katrin Santoyo MD Primary Care Pro vider Edison Vieira MD Unavailable [phone] Joe Devi MD Unavailable [phone] Allergies Active Allergy Reactions Criticality Noted [...] Continuous Blood Gluc Sensor (Dexcom G7 Sensor) [facility] 023 Active DULoxetine (Cymbalta) [address] [...] 2 tablets by mouth at bedtime Active Blood Glucose Monitoring Suppl (FreeStyle Vilonia Lite) w/Device kitIndications: Type 2 diabetes mellitus with diabetic nephropathy, with long-term current use of insulin (CMS/[facility], [facility]) Use to test blood sugar bid dx dm 1 kit Active capsaicin (Capzasin-HP) 0.1 % creamIndication s:Chronic [...] by mouth 2 times daily. 120 capsule Active Alpha-Lipoic Acid 600 MG capsule TAKE 1 CAPSULE BY MOUTH EVERY DAY 30 capsule 5 Active Ketotifen Fumarate 0.035 % solution PLACE 1 DROP INTO THE AFFECTED EYE(S) TWICE DAILY NEEDED FOR ALLERGIES 5 mL 1 Active ammonium lactate (Lac-Hydrin) 12 % lotion Apply 1 Application. topically Once per day. To feet Active ergocalciferol (Vitamin D-2) 1.25 MG (94200 UT) capsule Take 1 capsule by mouth. Every Monday and Active lidocaine (Lidoderm) 5 % patch Apply 1 patch topically Once per day. 12 hours on and 12 hours off Active SSD 1 % cream Apply 1 Application. topically Once per day. Active FreeStyle lancetsIndicati ons:Type 2 diabetes mellitus with diabetic nephropathy, with long-term current use of insulin ([facility], [facility]) 1 each by Other route before breakfast, before lunch, before evening meal, and at bedtime. Use bid, dx type 2 diabetes 100 each Active Alcohol Swabs (B-D SINGLE USE SWABS REGULAR) pads Apply 1 Units topically 4 times daily. 100 each Active B-D UF III MINI PEN NEEDLES 31G X 5 MM [facility] Use as instructed 100 each Active FREESTYLE [...] wheezing. 75 mL 3 024 2024 Active furosemide (Lasix) 40 MG [...] EYE NEEDED DRY EYES 30 each 1 Active Advair HFA 230-21 MCG/ACT inhalerIndicati ons:Moderate persistent asthma without complication INHALE 2 PUFFS BY MOUTH TWICE DAILY IN THE MORNING AND AT BEDTIME, RINSE MOUTH AFTER USING. 12 g 3 Active Spiriva Respimat 1.25 MCG/ACT inhalerIndicati ons:Moderate persistent asthma without complication INHALE 2 PUFFS BY MOUTH EVERY DAY IN THE MORNING 4 g 3 Active Aspirin Low Dose 81 MG chewable tablet CHEW 1 TABLET BY MOUTH ONCE DAILY EVERY MORNING 90 tablet 1 Active ezetimibe (Zetia) 10 MG tablet TAKE 1 TABLET BY MOUTH EVERY DAY IN THE MORNING 90 tablet 1 025 Active Nebulizers [facility] Use nebulizer as instructed 1 each Active Respiratory Therapy Supplies (Nebulizer/Tubi ng/Mouthpiece) kit To be used with Nebulizer 1 kit Active febuxostat (Uloric) 40 MG tablet TAKE 1 TABLET BY MOUTH ONCE DAILY 90 tablet 025 Active atorvastatin (Lipitor) 80 MG tablet TAKE 1 TABLET BY MOUTH EVERY DAY 90 tablet 1 025 Active Diclofenac Sodium 1 % gelIndications: Chronic radicular lumbar pain APPLY A THIN LAYER (2 GRAMS) TOPICALLY TO AFFECTED AREA(S) THREE TIMES DAILY NEEDED FOR PAIN 100 g 1 025 Active amLODIPine (Norvasc) 5 MG tablet TAKE 1 TABLET BY MOUTH EVERY DAY 90 tablet 1 025 Active olmesartan (BENIcar) 20 MG tablet Take 1 tablet by mouth Once per day. 024 Active Zepbound 2.5 MG/0.5ML solution auto-injector INJECT ONE PEN (=2.5MG) SUBCUTANEOUSLY ONCE A WEEK DIRECTED 025 Active permethrin (Elimite) 5 % cream apply to skin from hairline to toes and wash off 8-10 hours later,repeat in 14 days 60 g 025 Active triamcinolone (Kenalog) 0.1 % cream Apply topically if needed in the morning and at bedtime (pain and swelling). 30 g 025 Active diphenhydrAMINE (BENADryl) 25 MG tabletIndicatio ns:Papular rash, localized Take 1 tablet (25 mg) by mouth every 8 (eight) hours if needed for itching. 30 tablet 2 025 2024 Active mometasone (Elocon) 0.1 % ointmentIndicat ions:Papular rash, localized Apply topically if needed each day (itching). 15 g 1 025 2024 Active traMADol (Ultram) 50 MG tabletIndicatio ns:Chronic radicular lumbar pain Take 1 tablet (50 mg) by mouth every 8 (eight) hours if needed for severe pain. 84 tablet 025 Active DULoxetine (Cymbalta) [address] capsule TAKE 1 CAPSULE BY MOUTH EVERY DAY IN THE EVENING 023 2024 Discontinued(O ther) calcium carbonate (Tums) 500 MG chewable tabletIndicatio ns:Elevated parathyroid hormone Chew 2 tablets (1,000 mg) Once per day. 180 tablet 024 2024 cholecalciferol (Vitamin D-3) 50 MCG (2000 UT) tabletIndicatio ns:Elevated parathyroid hormone Take 1 tablet (50 mcg) by mouth Once per day. 90 tablet 1 024 2024 amLODIPine (Norvasc) 5 MG tablet TAKE 1 TABLET BY MOUTH EVERY DAY 90 tablet 1 024 2024 Discontinued fluticasone (Flonase) 50 MCG/ACT nasal sprayIndication s:Nasal congestion Administer 1-2 sprays into each nostril Once per day. Shake gently. Before first use, prime pump. After use, clean tip and replace cap. 16 g 024 2024 Discontinued(O ther) traMADol (Ultram) 50 MG tabletIndicatio ns:Chronic radicular lumbar pain TAKE 1 TABLET BY MOUTH EVERY 8 HOURS NEEDED SEVERE PAIN FOR UP TO 28 DAYS 84 tablet 025 2024 Discontinued(R eorder (will not trigger notification to Pharmacy)) Dextromethorpha n-guaiFENesin (Mucinex DM) 30-600 MG tablet sustained-relea se 12 hour Use 1 tab TID 28 tablet 025 2024 Discontinued(O ther) Active Problems Problem Noted Date Diagnosed Date Chronic pancreatitis, unspecified pancreatitis t ype 08/22/2024 Skin pruritus 08/22/2024 Lipoma 07/10/2024 Assessment & Plan (07/10/2024 2:47 [...] immediately Long-term current use of opiate analgesic 11/26/ 2024 Overview (08/13/2024): Medication: Tramadol 50mg Q8H PRN Indication: chronic radicular lumbar pain Last TISSUE SPECIALIST Agreement: 04/02/24 Additional considerations: BZO from outside prescriber Assessment & Plan (09/18/2024 5:50 PM EDT): Timeline: - 08/13/24: Group Visit - utox/pill count as expected - 09/17/24: Group Visit - utox/pill count as expected Assessment & Plan (08/13/2024 1:58 PM EDT): Timeline: - 08/13/24: Group Visit - utox/pill count as expected Chronic respiratory failure with hypoxia 024 On home oxygen therapy 02/02/2024 Assessment & Plan (04/07/2024 2:01 PM EST): - Continues on 2L oxygen - Followed by [facility] Pulm - Dr. Vieira Right foot pain 11/13/2023 Assessment & Plan [...] lesions. Secondary dental caries 10/23/2023 Fractured dental confucianism without loss of mat erial 10/23/2023 Alkaline [...] radicular lumbar pain 01/23/2023 Assessment & Plan (09/18/2024 5:49 PM EDT): -Good engagement and participation with Group Medical Visit model -Encouraged multifactorial approach to pain control including pharm and non- pharm modalities -Pill Count and Utox as expected Assessment & Plan (08/13/2024 1:58 PM EDT): -Good engagement and participation with Group Medical Visit model -Encouraged multifactorial approach to pain control including pharm and non- pharm modalities -Pill Count and Utox as expected Assessment & Plan (07/18/2024 11:31 AM EDT): [...] of multiple topical analgesics after discussion with [facility] Pharmacist - meds sent to [...] 2022, f/u appt 01/2023 Dental: Refer pt [facility] on 12/13/22 Moderate persistent asthma 11/07/2022 Overview (11/07/2022): -[facility]stable with the use of Advair and [...] Will focus on improving diabetic control Discuss nurse educator referral at next visit F/u 1 [...] (04/07/2024 2:05 PM EST): - Following with [facility] Carito Melchor - Plan for upcoming renal biopsy - [...] screening purposes. Gastroesophageal reflux disease 03/16/2019 Overview (07/30/2024): - continues to take PPI daily FL/FL upper GI w air IMPRESSION: 1. Mild episodic gastroesophageal reflux identified. 2. Mild disordered esophageal motility. 3. No hiatus hernia. 4. Somewhat elongated appearing stomach. Mild gastric rugal fold thickening, suggesting mild gastritis. 5. Mild diffuse jejunal and ileal fold thickening with mildly rapid transit, raising the possibility of malabsorption disorder. Obstructive sleep apnea 02/08/2019 Overview (11/07/2022): -prior [...] mmHg, Excellent response to BPAP S on 17 cm. -auto BPAP ordered, IPAP max 22, [...] disordered breathing. RECOMMENDATIONS / PLAN : -Current [employer] recommendations for treatment of [...] S on 17/10 cm. - Following with [facility] Pulmonology - Dr. [...] told him that it is not a care home med. He will fu w PCP next [...] told him that it is not a terminal clerk med. He will fu w PCP next week. Use heat to affected area Diabetes mellitus with diabetic nephropathy 12/09/2022 12/13/2022 History of colonoscopy 12/09/202201/23 Overview (12/09/2022): information and pathology of colonospcy in [facility] 09-09-2020 note Hyperlipidemia due to [...] Encounters Date Type Department Care Team Description 09/19/2024 1:20 PM EDT Office Visit [facility] WALK-IN [address] [address] Bilateral foot pain (Primary Dx); Type 2 diabetes mellitus with stage 3 chronic kidney disease, with long-term current use of insulin, unspecified whether stage 3a or 3b CKD (CMS/HCC) 09/17/2024 9:45 AM EDT Office Visit [facility] MEDICINE [address] [place] [phone] PhalenHeshamle, [employer] Chronic radicular lumbar pain (Primary Dx); Long-term current use of opiate analgesic 09/17/2024 Travel 09/03/2024 1:00 PM EDT Office Visit [facility] WALK-IN CENTER [address] [place] [phone] Phalen Moriah, [employer] Papular rash, localized (Primary Dx) 09/03/2024 Travel 09/02/[address] [address] Katrin Santoyo MD Medication Question 08/28/2024 Refill [facility] WALK-IN CENTER [address] [place] [phone] Dhara Cardenas MD 08/27/[address] [address] Katrin Santoyo MD Durable Medical Equipment (Compression stockings) 08/23/[address] [address] Taylor Thomas RN PT Referral/MOCA 08/22/2024 1:15 PM EDT Office Visit [address] [address] Katrin Santoyo MD Adrenal adenoma, unspecified laterality (Primary Dx); Type 2 diabetes mellitus with stage 3 chronic kidney disease, with long-term current use of insulin, unspecified whether stage 3a or 3b CKD ([facility]/HCC); Acute gout, unspecified cause, unspecified site; Dietary counseling; Exercise counseling; Chronic pancreatitis, unspecified pancreatitis type (CMS/HCC); Diabetes mellitus, labile (CMS/HCC); Chronic respiratory failure with hypoxia (CMS/[facility]); Moderate persistent asthma without complication; Neuropathy due to type 2 diabetes mellitus ([facility]/HCC); Obstructive sleep apnea; Primary hypertension; Adrenal adenoma, right; Chronic kidney disease (CKD) stage G3a/A3, moderately decreased glomerular filtration rate (GFR) between 45-59 mL/min/1.73 square meter and albuminuria creatinine ratio greater than 300 mg/g ([facility]/HCC); Acute gout of left foot, unspecified cause; Bilateral leg edema; Secondary dental caries; Health care maintenance; Memory loss; Skin pruritus 08/22/2024 Travel 08/20/2024 Refill [facility] WALK-IN CENTER [address] [place] [address] Katrin Santoyo MD 08/17/2024 Refill [facility] MEDICINE [address] [place] [address] Shirin Albarran MD Chronic radicular lumbar pain 08/15/[address] [address] Katrin Santoyo MD chart prep 08/13/2024 9:45 AM EDT Office Visit [address] [address] Moriah Herbert FNP Chronic radicular lumbar pain (Primary Dx); Long-term current use of opiate analgesic 08/13/2024 Travel 08/01/[address] [address] June Jarvis ANP DME from [facility] 07/30/2024 Orders Only [address] [address] June Jarvis ANP Gastroesophageal reflux disease, unspecified whether esophagitis present (Primary Dx) 07/29/2024 Orders Only GENERIC EXTERNAL DATA DEPARTMENT Provider, Generic External Data 07/23/2024 Orders Only [facility] External Provider, [facility] 07/19/2024 Population Health Risk Score [facility] (C[facility]) Department [address] [place] [id number] Provider, Population Health Generic 07/17/2024 5:00 PM EDT Office Visit [facility] WALKIN CENTER [address] [place] [address] Cleo Reynoso FNP Diarrhea, unspecified type (Primary Dx) 07/16/2024 9:45 AM EDT Office Visit [facility] MEDICINE [address] [place] [phone] Moriah Herbert FNP Chronic radicular lumbar pain (Primary Dx); Long-term current use of opiate analgesic; Gout involving toe of left foot, unspecified cause, unspecified chronicity; Type 2 diabetes mellitus with stage 3 chronic kidney disease, with long-term current use of insulin, unspecified whether stage 3a or 3b CKD ([facility], [facility]) 07/16/2024 Travel 07/10/2024 2:00 PM EST Office Visit [facility] WALK-IN CENTER [address] [place] [phone] Katrin Leroy MD Lipoma of other specified sites (Primary Dx); Acute gout of left foot, unspecified cause; Primary hypertension; Burn 07/10/2024 Refill [facility] WALK-IN CENTER [address] [place] [phone] June Jarvis ANP Gout due to renal impairment, unspecified chronicity, unspecified site 07/03/2024 Travel 07/03/2024 Telephone [facility] [address] [place] [address] Gabriela Rea RN r/s chronic pain group 07/03/2024 Refill [facility] WALK-IN CENTER [address] [place] [address] Katrin Santoyo MD 07/02/2024 Travel 2024 11:20 AM EST Office Visit [facility] WALK-IN CENTER [address] [place] [address] Dhara Cardenas MD Acute bronchitis, unspecified organism (Primary Dx); Influenza A 2024 Telephone [facility] MEDICINE [address] [place] [address] Katrin Santoyo MD Med Refill 2024 Refill [facility] MEDICINE [address] [place] [address] Katrin Santoyo MD 06/25/2024 Refill [facility] WALK-IN CENTER [address] [place] [phone] Katrin Santoyo MD from Last 3 Months Immunizations Immunization Administration Dates Next Due Hep B, adult [...] Passive Smoke Exposure: Never Smokeless Tobacco: Never Tobacco Cessation:Counseling Given: [...] Sign Reading Time Taken Comments Blood Pressure 134/78 09/19/2024 1:13 PM EDT Man ual Pulse 104 09/19/2024 1:07 PM EDT Temperature 36.4 ??C (97.5 ??F) 09/19/2024 1:07 PM E DT Respiratory Rate 17 09/19/2024 1:07 PM EDT Oxygen Saturation 98% 09/19/2024 1:07 PM EDT Inhaled Oxygen Concentration - - Weight 121 kg (266 lb 12.8 oz) 09/19/2024 1:07 P M EDT Height 172.7 cm (5' 8 ) 08/22/2024 1:07 PM EDT Body Mass Index 40.57 08/22/2024 1:07 PM EDT Plan of Treatment Upcoming Encounters Date Type Department Care Team (Late st Contact Info) Description 10/07/2024 1:00 PM EDT Clinical Support [address] [address] 11/01/2024 1:15 PM EDT Office Visit [address] [address] Katrin Santoyo MD [address] [place] [address] 11/12/2024 9:45 AM EDT Office Visit [address] [address] Health Maintenance Due Date Last Done Comments [...] Mouth 08/16/2021 08/15/2018 SDOH Screening 06/06/2024 06/06/2023 Lipid Panel 09/18/2024 09/19/2023, 05/08, 12/06/2022 Depression Screening 10/30/2024 10/31/2023, 10/31/19 Diabetes: Hemoglobin A1C 11/21/2024 025, 03/27/2024, 02/01/2024, Additional history exists Diabetes: Foot Exam 02/11/2025 02/12/2024, 11/13/2023, 11/13/2023, Additional history exists Tobacco Screening 08/22/2025 08/22/2024 DTaP/Tdap/Td Vaccines (3 - Td or Tdap) [...] Blood Pressure 134/78(2024 1:13 PM EDT) No Eve Guzman PharmD Hemoglobin A1c < 7 Result Component 10.2(08/23/19 1:13 PM EDT) No Eve Guzman PharmD Procedures Procedure Name Priority Date/Time Associated Diagnosis Comments POCT GLUCOSE Routine 09/19/2024 1:18 PM EDT Type 2 diabetes mellitus with stage 3 chronic kidney disease, with long-term current use of insulin, unspecified whether stage 3a or 3b CKD (CMS/HCC) POCT RIKKI-14 URINE DRUG SCREEN Routine 09/17/2024 11:30 AM EDT Chronic radicular lumbar pain POCT GLYCATED HEMOGLOBIN, TOTAL Routine 08/22/2024 1:13 PM EDT Type 2 diabetes mellitus with stage 3 chronic kidney disease, with long-term current use of insulin, unspecified whether stage 3a or 3b CKD (CMS/HCC) POCT GLUCOSE Routine 08/22/2024 1:09 PM EDT Type 2 diabetes mellitus with stage 3 chronic kidney disease, with long-term current use of insulin, unspecified whether stage 3a or 3b CKD (CMS/HCC) POCT RIKKI-14 URINE DRUG SCREEN Routine 08/13/2024 10:53 AM EDT Long-term current use of opiate analgesic Chronic radicular lumbar pain FL UPPER GI W AIR Routine 07/30/2024 8:2 0 AM EDT XR CHEST 2 VIEWS Routine 07/30/2024 8:05 AM EDT GROSS AND MICROSCOPIC LEVEL 3 Routine 07/29/2024 11:45 AM EDT US ABDOMEN COMPLETE WITH ELASTOGRAPHY Routine 07/23/2024 [...] Routine 2024 11:08 AM EST Influenza A LIPID PANEL, STANDARD Routine 09/19/2023 1:43 PM [...] to Health Maintenance Results * (ABNORMAL) POCT glucose manually resulted (09/19/2024 1:18 PM EDT) Only the most recent of4 resultswithin the time period is included. Glucose Blood, POC 406(A) 60 - 200 mg/dL Blood Capillary blood specimen / Unknown 09/19/2024 1:18 PM EDT Billy Martínez MD POINT OF CARE TEST ENTER/EDIT OR DERABLES Final Result * POCT RIKKI-14 Urine Drug Screen (09/17/2024 11:30 AM EDT) Only the most recent of3 resultswithin the time period is included. Urine Urine specimen obtained by clean catch procedure / Unknown 09/17/2024 11:30 AM EDT Narrative Gabriela Rea RN - 09/17/2024 11:30 AM EDT negative AMP, BAR, BUP, BZO, MARYLU, FTY, MDMA, MET, MOP, MTD, OXY, PCP, TCA, THC. .UTOX cup Lot#[id number] Exp. 12/25/25 Internal Pass Control Moriah SEPULVEDAP POINT OF CARE TEST ENTER/EDIT ORDERABLES Final Result * (ABNORMAL) POCT HGB A1C (08/22/2024 1:13 PM EDT) Hemoglobin A1C 10.2(A) 4.0 - 6.0 % QC Media Lot # [id number] Lot# Expiration Date Blood 08/22/2024 1:13 PM EDT Katrin López MD POINT OF CARE IRAM T ENTER/EDIT ORDERABLES Final Result * FL upper GI w air (07/30/2024 8:20 AM EDT) Anatomical Region Laterality Modality Body Radiographic Cierra ging 07/30/2024 8:20 AM EDT Narrative 07/30/2024 10:23 AM EDT ? [facility] ?[address] ?[place] [address] ? Fluoroscopy Report ? Signed ? Patient: Benton Cortes,Darrel ?MR#: [id number] ?? [id number] ? : 1970 ?Acct:[id number] ? Age/Sex: 54 / M ?ADM Date: 07/30/24 ? Loc: HO.XRAY ? Attending Dr: Chuy Mcmanus MD ? Ordering Physician: Chuy Mcmanus MD ?? Date of Service: 07/30/24 ?? Procedure(s): FL upper GI w air ?? Accession Number(s): [id number] ? cc: Katrin Santoyo MD; Chuy Mcmanus MD ? EXAMINATION: ?? XR FLUOROSCOPY UPPER GI SERIES ? CLINICAL INFORMATION: ?? Obesity, GERD. ? COMPARISON: ?? None ? TECHNIQUE: ?? Fluoroscopic air contrast upper GI examination was performed utilizing ?? standard techniques with thin and thick barium and effervescent ?? granules. Numerous spot images were obtained. Several fluoroscopic ?? image hold cine sequences were also obtained. ? FINDINGS: ? UPPER GI SERIES: ?? Lateral cine images of the oropharynx and hypopharynx demonstrate ?? normal swallow mechanism with normal epiglottic inversion and soft ?? palate elevation. Minimal laryngeal penetration, without glottic or ?? subglottic aspiration. No nasopharyngeal reflux present. Hypopharyngeal ?? structures appear normal without evidence of mass or diverticulum. ?? There was no significant cricopharyngeal achalasia. ? Dual and single contrast images of the esophagus demonstrate normal ?? caliber, contour, and mucosal pattern. No evidence of stricture, mass, ?? or ulcerations identified. Esophageal peristalsis is mildly disordered. ? No evidence of hiatus hernia identified. Mild episodic gastroesophageal ?? reflux was identified during the course of the exam. ? Dual contrast and single contrast images of the stomach demonstrated ?? somewhat elongated contour. There is diffuse mild gastric rugal fold ?? thickening. Gastric mucosal pattern is normal without evidence of mass, ?? ulceration, or other abnormality. Contrast freely passed into the ?? gastric antrum and duodenal bulb without delay. ? Single and air-contrast images of the duodenal bulb demonstrate no ?? abnormality. The duodenal sweep has a normal appearance, course, and ?? mucosal fold appearance. ? Small bowel demonstrates somewhat rapid transit. There is mild diffuse ?? jejunal fold thickening, and mild ileal fold thickening noted, raising ?? the possibility of a malabsorption disorder. ? FLUOROSCOPY TIME: ?? 3 minutes 54 seconds ? Number of Spot Images:12 ?? Number of cines obtained: 16 ? DOSE AREA PRODUCT: ?? 730.2 dGy-m2 ? FL/FL upper GI w air ?? IMPRESSION: ?? 1. Mild episodic gastroesophageal reflux identified. ?? 2. Mild disordered esophageal motility. ?? 3. No hiatus hernia. ?? 4. Somewhat elongated appearing stomach. Mild gastric rugal fold ?? thickening, suggesting mild gastritis. ?? 5. Mild diffuse jejunal and ileal fold thickening with mildly rapid ?? transit, raising the possibility of malabsorption disorder. ? Electronically signed by: ??Go Chance MD ??07/30/2024 10:20 AM EDT RP ? Dictated By: ?Go Chance MD ? Signed By: ?<Electronically signed by Go Chance MD in OV> ?07/30/24 1020 ? DD/ 0820 ? TD/TT: 07/30/24 0850 ? Ink Maker: ? Procedure Note Cliff Whyte - 07/30/[address] [address] Fluoroscopy Report Signed Patient: Darrel HaganMR#: [id number] : 1970Acct:[id number] Age/Sex: 54 / MADM Date: 07/30/24 Loc: [facility] Attending Dr: Chuy Mcmanus MD Ordering Physician: Chuy Mcmanus MD Date of Service: 07/30/24 Procedure(s): FL upper GI w air Accession Number(s): [id number] cc: Katrin Santoyo MD; Chuy Mcmanus MD EXAMINATION: XR FLUOROSCOPY UPPER GI SERIES CLINICAL INFORMATION: Obesity, GERD. COMPARISON: None TECHNIQUE: Fluoroscopic air contrast upper GI examination was performed utilizing standard techniques with thin and thick barium and effervescent granules. Numerous spot images were obtained. Several fluoroscopic image hold cine sequences were also obtained. FINDINGS: UPPER GI SERIES: Lateral cine images of the oropharynx and hypopharynx demonstrate normal swallow mechanism with normal epiglottic inversion and soft palate elevation. Minimal laryngeal penetration, without glottic or subglottic aspiration. No nasopharyngeal reflux present. Hypopharyngeal structures appear normal without evidence of mass or diverticulum. There was no significant cricopharyngeal achalasia. Dual and single contrast images of the esophagus demonstrate normal caliber, contour, and mucosal pattern. No evidence of stricture, mass, or ulcerations identified. Esophageal peristalsis is mildly disordered. No evidence of hiatus hernia identified. Mild episodic gastroesophageal reflux was identified during the course of the exam. Dual contrast and single contrast images of the stomach demonstrated somewhat elongated contour. There is diffuse mild gastric rugal fold thickening. Gastric mucosal pattern is normal without evidence of mass, ulceration, or other abnormality. Contrast freely passed into the gastric antrum and duodenal bulb without delay. Single and air-contrast images of the duodenal bulb demonstrate no abnormality. The duodenal sweep has a normal appearance, course, and mucosal fold appearance. Small bowel demonstrates somewhat rapid transit. There is mild diffuse jejunal fold thickening, and mild ileal fold thickening noted, raising the possibility of a malabsorption disorder. FLUOROSCOPY TIME: 3 minutes 54 seconds Number of Spot Images:12 Number of cines obtained: 16 DOSE AREA PRODUCT: 730.2 dGy-m2 FL/FL upper GI w air IMPRESSION: 1. Mild episodic gastroesophageal reflux identified. 2. Mild disordered esophageal motility. 3. No hiatus hernia. 4. Somewhat elongated appearing stomach. Mild gastric rugal fold thickening, suggesting mild gastritis. 5. Mild diffuse jejunal and ileal fold thickening with mildly rapid transit, raising the possibility of malabsorption disorder. Electronically signed by: Go Chance MD 07/30/2024 10:20 AM EDT Dictated By: Go Chance MD Signed By: <Electronically signed by Go Chance MD in OV> 07/30/24 1020 DD/ 0820 TD/TT: 07/30/24 0850 Ink Maker: [facility] Exter nal Provider IMG FLUOROSCOPY PROCEDURES Edited Result - Final * XR Chest 2 Views (07/30/2024 8:05 AM EDT) Anatomical Region Laterality Modality Chest Radiographic Cierra ging 07/30/2024 8:05 AM EDT Narrative 07/30/2024 10:25 AM EDT ? [facility] ?[address] ?[place], [place] [address] ?XRay Report ? Signed ? Patient: Benton CortesDarrel ?MR#: [id number] ?? [id number] ? : 1970 ?Acct:[id number] ? Age/Sex: 54 / M ?ADM Date: 07/30/24 ? Loc: HO.XRAY ? Attending Dr: Chuy Mcmanus MD ? Ordering Physician: Chuy Mcmanus MD ?? Date of Service: 07/30/24 ?? Procedure(s): XR chest 2V ?? Accession Number(s): [id number] ? cc: Katrin Santoyo MD; Chuy Mcmanus MD ? EXAMINATION: ?? XR CHEST ? CLINICAL INFORMATION: ?? I10 - Essential (primary) hypertension ? COMPARISON: ?? 04/03/2024. ? TECHNIQUE: ?? 2 views of the chest were obtained. ? FINDINGS: ?? The cardiac, hilar, and mediastinal contours are normal. Mild aortic ?? calcification. ? Lungs demonstrate mild linear atelectasis or scarring bilateral lower ?? lobes. Lungs otherwise clear. ?? There is no pneumothorax or pleural effusion. ? There is no focal osseous or soft tissue abnormality. ? XR/XR chest 2V ?? IMPRESSION: ?? No active pulmonary disease. ? Electronically signed by: ??Go Chance MD ??07/30/2024 10:22 AM EDT RP ? Dictated By: ?Go Chance MD ? Signed By: ?<Electronically signed by Go Chance MD in OV> ?07/30/24 1022 ? DD/ 0805 ? TD/TT: 07/30/24 0819 ? Ink Maker: ? Procedure Note Donotuseinterpreter, Image - 07/30/[address] [address] XRay Report Signed Patient: Darrel HaganMR#: [id number] : 1970Acct:[id number] Age/Sex: 54 / MADM Date: 07/30/24 Loc: HO.XRAY Attending Dr: Chuy Mcmanus MD Ordering Physician: Chuy Mcmanus MD Date of Service: 07/30/24 Procedure(s): XR chest 2V Accession Number(s): [id number] cc: Katrin Santoyo MD; Chuy Mcmanus MD EXAMINATION: XR CHEST CLINICAL INFORMATION: I10 - Essential (primary) hypertension COMPARISON: 04/03/2024. TECHNIQUE: 2 views of the chest were obtained. FINDINGS: The cardiac, hilar, and mediastinal contours are normal. Mild aortic calcification. Lungs demonstrate mild linear atelectasis or scarring bilateral lower lobes. Lungs otherwise clear. There is no pneumothorax or pleural effusion. There is no focal osseous or soft tissue abnormality. XR/XR chest 2V IMPRESSION: No active pulmonary disease. Electronically signed by: Go Chance MD 07/30/2024 10:22 AM EDT Dictated By: Go Chance MD Signed By: <Electronically signed by Go Chance MD in OV> 07/30/24 1022 DD/ 0805 TD/TT: 07/30/24 0819 Ink Maker: [facility] External Provider IMG XR PROCEDURES Edited Result - Final * Gross and Microscopic Level 3 (07/29/2024 11:45 AM EDT) 07/29/2024 11:4 5 AM EDT 07/30/2024 8:48 AM EDT Narrative [facility] - 07/31/2024 2:11 PM EDT ----- ------- Name: Darrel Hagan ? Age/Sex: 54/M ? : 1970 Unit#: [id number] ?? Attend Dr: Handy Phoenix MD ?Re07/29/24 ?Status: DEP REF ? Location: HO.LAB ?Disch: ? ----- ------- SPEC : [id number] ? RECD: 07/30/24 ? STATUS: ??SOUT ? REQ NUM: [id number] ? ESTUARDO: 07/29/24-1145 ? SUBM DR: Handy Phoenix MD ? ENTERED: ??07/30/24-849 ?SP TYPE: Surgical ? OTHR DR: Katrin Santoyo MD ORDERED: ??Gross Micro L3 ? Diagnosis ?? Soft tissue, neck lump, excision: ??Mature lobular adipose tissue with focal fat necrosis, ?? compatible with lipoma. ?Clinical History Lump on neck ?Microscopic Description Microscopic sections reviewed. ? Material Received ?? Lump on neck ? Gross Description Received in formalin labeled ?neck lump are 2 focally congested and hemorrhagic, mayberry- yellow and red-maroon lobular portions of adipose tissue measuring 1.2 and 1.8 cm in greatest dimension and aggregating 1.8 x 1.5 x 0.3-0.5 cm. ??No skin is identified. ??The margins are inked and each portion of tissue is serially sectioned to reveal congested and hemorrhagic mayberry-yellow and red-maroon lobular fat. ??The specimen is entirely submitted in cassettes A1 and A2. CEDS Copies To: ?? Katrin Santoyo MD ?? [address] ?? [place] [address] ?? [phone] ?? Handy Phoenix MD ?? [facility] ?? [address] ?? [place] [address] ?? [phone] ?? [email or web address] ? CONTINUED ON NEXT PAGE ----- ------- Name: Darrel Hagan ? Age/Sex: 54/M ? : 1970 Unit#: [id number] ?? Attend Dr: Handy Phoenix MD ?Re07/29/24 ?Status: DEP REF ? Location: HO.LAB ?Disch: ? ----- ------- SPEC : [id number] ? RECD: 07/30/24 ? STATUS: ??SOUT ? REQ NUM: [id number] ? ESTUARDO: 07/29/24-6680 ? SUBM DR: Handy Phoenix MD ? ENTERED: ??07/30/24 ?SP TYPE: Surgical ? OTHR DR: Katrin Santoyo MD ORDERED: ??Gross Micro L3 ? ----- ------- Signed (signature on file) Nere[place] 07/31/24 1411 ? ----- ------- ? END OF REPORT ? us Generic External Data Provider LAB [facility] Final Result [facility] [address] [place] [address] [phone] * US Abdomen Comp w elastography (07/23/2024 8:45 AM EDT) Anatomical Region Laterality Modality Abdomen Ultrasound 07/23/2024 8:45 AM EDT Narrative 07/23/2024 9:23 AM EDT ? [facility] ?[address] ?[place] [address] ? Ultrasound Report ? Signed ? Patient: Benton Cortes,Darrel ?MR#: [id number] ?? [id number] ? : 1970 ?Acct:[id number] ? Age/Sex: 54 / M ?ADM Date: 03/18/25 ? Loc: HO.US ? Attending Dr: Chuy Mcmanus MD ? Ordering Physician: Chuy Mcmanus MD ?? Date of Service: 07/23/24 ?? Procedure(s): US abdomen comp w elastography ?? Accession Number(s): [id number] ? cc: Katrin Santoyo MD; Chuy Mcmanus [...] DD/ 0845 ? TD/TT: 07/23/24 0904 ? Ink Maker: ? Procedure Note Donotuseinterpreter, Image - 07/23/2024 [place] [address] Ultrasound Report Signed Patient: Rayo Hagan#: [id number] : 1970Acct:[id number] Age/Sex: 54 / MADM Date: 07/23/24 Loc: HO.US Attending Dr: Chuy Mcmanus MD Ordering Physician: Chuy Mcmanus MD Date of Service: 07/23/24 Procedure(s): US abdomen comp w elastography Accession Number(s): [id number] cc: Katrin Santoyo MD; Chuy Mcmanus MD [...] MD 07/23/2024 09:20 AM EDT Dictated By: Jvuenal Caldera MD Signed By: <Electronically signed by Juvenal Caldera MD in OV> 07/23/24919 DD/ TD/TT: 07/23/24903 Ink Maker: [facility] External Provider IMG US PROCEDURES Final Result * (ABNORMAL) Influenza A (ID NOW Rapid Molecular) (2024 11:09 AM EST) Influenza A Positive( A) Negative, Indeterminate [facility] Swab 2024 11:0 9 AM EST Result [facility] Dhara Cardenas MD POINT OF CARE TEST ENTER/EDIT OR DERABLES Final Result Performing Organization Address [facility]/[employer] de Phone Number [facility] [address] [place] [phone] * Influenza B (ID NOW Rapid Molecular) (2024 11:08 AM EST) Influenza B Negative Negative, Indeterminate [facility] Swab 2024 11:0 8 AM EST Result [facility] Dhara Cardenas MD POINT OF CARE TEST ENTER/EDIT OR DERABLES Final Result Performing Organization Address [facility]/[employer] de Phone Number [facility] [address] [place] [phone] * POCT Rapid COVID Ag (2024 11:08 AM EST) Rapid COVID Ag Negative Swab 2024 11:0 8 AM EST us Dhara Cardenas MD POINT OF CARE TEST ENTER/EDIT OR DERABLES Final Result * (ABNORMAL) Lipid Panel, Standard (09/19/2023 1:43 PM EDT) Pathologist [facility] Triglycerides 316(H) <150 mg/dL [facility] Comment:Desirable Triglyceri de: less than 150 mg/dLBorderline High Triglyceride 150-199 mg/dLHigh Triglyceride: 200-499 mg/dLVery High Triglyceride: greater than or equal to 5OO mg/dL Cholesterol 164 <200 mg/dL [facility] Comment:Desirable Cholestero l: less than 200 mg/dLBorderline High Cholesterol: 200-239 mg/dLHigh Cholesterol: greater than 239 mg/dL LDL Cholesterol Calculated 60 <100 mg/dL [facility] Comment:Desirable LDL: less than 100 mg/dLNear Optimal/Above Optimal LDL: 110- 129 mg/dLBorderline High LDL: 130-159 mg/dLHigh LDL: 160-189 mg/dLVery High LDL: greater than or equal to 190 mg/dL HDL Cholesterol 41 >40 mg/dL [facility] Comment:Desirable HDL: great er than 40 mg/dL Note: This HDL assay may give artificially low results in patients with liver disease. Blood Venous blood specimen / Unknown 09/19/2023 1:43 PM EDT 09/19/2023 3:53 PM EDT us Katrin López MD LAB BLOOD ORDERAB LES Final Result [facility] [address] [place] [address] [phone] * HIV Ab/Ag (LOU JEFFRIES) (12/06/2022 10:21 AM EDT) Pathologist [facility] HIV AB/AG Nonreactive Nonreactive [facility] Comment:HIV-1 p24 Ag and/or HIV-1/HIV-2 Ab not detected.A test result that is nonreactive does not exclude thepossibility of exposure to or infection with HIV-1 and/orHIV-2. Nonreactive results in this assay for individualswith prior exposure to HIV-1 and/or HIV-2 may be due toantigen and antibody levels that are below the limit ofdetection of this assay.The Lamar [employer] Writer / Runner HIV Ag/Ab Combo assay result andsupplemental assay results should be interpreted inconjunction with the patient's clinical presentation,history and other laboratory results. If the results areinconsistent with clinical evidence, additional testing issuggested to confirm the result. 12/06/2022 10:2 1 AM EDT 12/06/2022 11:17 AM EDT Elise Castro Abdoulaye [facility] BLOOD ORDERABLES Final Result Performing Organization Address [facility] de Phone Number [facility] [address] [place] [phone] * Hepatitis Panel, General (12/06/2022 10:21 AM EDT) [facility] Hepatitis A IgM Nonreactive Nonreactive [facility] Comment:IgM antibodies to VILLANUEVA V not detected; does not exclude earlyacute or recovered HAV infection. ~Hepatitis B Surface Antibody REACTIVE Nonreactive [facility] Comment:REACTIVE: > 11.99 mI U/mL Hepatitis B Core Antibody Nonreactive Nonreactive [facility] Hepatitis C Antibody Nonreactive Nonreactive [facility] Comment:Antibodies to HCV no t detected; does not exclude early acuteHCV infection. Hepatitis B Surface Ag Negative Negative [facility] Blood 12/06/2022 10:2 1 AM EDT 12/06/2022 11:17 AM EDT Elise [employer] [facility] BLOOD ORDERABLES Final Result Performing Organization Address [facility]/ZIP Co de Phone Number [facility] [address] [place] [address] [phone] from Last 3 Months or Most Recently Relevant to Health Maintenance Insurance [place] [facility] STAND ADULT Care Teams Seafood Specialist Relationship Specialty Start Date End Date Katrin Santoyo MD [address] [place] [address] PCP - General Internal Medicine 12/13/22 Edison Vieira MD [address] [place] [address] Pulmonary Disease 04/07/24 Joe Devi MD [address] [place] [address] 3rd [place] [address] Gastroenterology 04/07/24 Carito Roche DNP [address] [facility], [address] [place] [address] Nephrology 04/07/24 [employer] 04/11/24
--- OUTSIDE RECORDS SUMMARY | 2024-09-19 15:25 | XMS_ITS | Encounter Summary ---
Author Organization [employer] Address [address] 7t [place] [address] Care Team Providers Care Media Marketing Manager Name Role Phone Katrin Santoyo MD Primary Care Pro vider Edison Vieira MD Unavailable [phone] Joe Devi MD Unavailable [phone] Reason for Visit * Reason Comments Med Refill Encounter Details Date Type Department Care Team (Late st Contact Info) Description 07/10/[address] [facility] [address] [place], [place] [phone] June Jarvis ANP [address] [place], [place] [phone] Gout due to renal impairment, unspecified chronicity, [...] 10/07/2024 1:00 PM EDT Clinical Support [address] [address] 11/01/2024 1:15 PM EDT Office Visit [address] [address] Katrin Santoyo MD [address] [place] [address] 11/12/2024 9:45 AM EDT Office Visit [address] [address] documented as of this encounter Goals Goal Patient Goal Type Associated Problems Recent Progress Patient-Stated? Author Blood Pressure < 140/90 Blood Pressure 134/78(2024 1:13 PM EDT) No Piers-Nimo Griersa, PharmD Hemoglobin A1c < 7 Result Component 10.2(08/23/19 1:13 PM EDT) No Nemesios-Gambl eEve, PharmD documented as of this encounter Visit Diagnoses Diagnosis Gout due to renal impairment, unspecified chronicity, unspecified site documented in this encounter Additional Health Concerns Assessment Noted Time PHQ-9 Depression Total Score: 4 10/31/19 24 10:32 AM EDT documented as of this encounter Care Teams Media Marketing Manager Relationship Specialty Start Date End Date Katrin Santoyo MD [address] [place] [address] PCP - General Internal Medicine 12/13/22 Edison Vieira MD [address] [place] [address] Pulmonary Disease 04/07/24 Joe Devi MD [address] [facility] 3rd [place] [address] Gastroenterology 04/07/24 Carito Roche DNP [address] [facility], [address] [place] [address] Nephrology 04/07/24 [employer] 04/11/24 documented as of this encounter
--- OUTSIDE RECORDS SUMMARY | 2024-09-19 15:25 | XMS_ITS | Encounter Summary ---
Author Organization [employer] Address [address] [facility] 7t [place] [address] Care Team Providers Care Library Manager Name Role Phone Elise Stanford Primary Care Provider [phone] Katrin Santoyo MD Primary Care Pro vider Edison Vieira MD Unavailable [phone] Joe Devi MD Unavailable [phone] Reason for Visit * Reason Onset Date Comments Referral 11/24/2022 Podiatry Encounter Details Date Type Department Care Team (Late st Contact Info) Description 11/24/2022 Telephone [facility] MED[facility]INE [address] [place] [address] Elise Stanford FNP [address] [facility] Dept [place] [address] Referral (Podiatry/) Social History Tobacco Use Types [...] Anne Ocasio - 11/29/2022 9:46 AM EDT Log Rider re-faxed referral to Dr. Smith's office. Log Rider called Dr. Smith's office and confirmed that referral was received. Log Rider attempted to call patient twice to infirm that he may call to schedule his appt but did not answer and voicemail could not be left due to pt not having voicemail setup. Dr. Smith [address] [facility] [address] FAX [phone] * Telephone Encounter - Elizabeth Melo - 11/24/2022 9:51 AM EDT Tc from patient requesting status on podiatry referral. Log Rider provided address and phone number and patient stated they told him they don't have a referral or any notes for referral. Patient states he let them know of referral letter and they stated they still need notes to be seen. documented in this encounter Plan of Treatment Upcoming Encounters Date Type Department Care Team ([facility] st Contact Info) Description 10/07/2024 1:00 PM EDT Clinical Support [address] [address] 11/01/2024 1:15 PM EDT Office Visit [address] [address] Katrin Santoyo MD [address] [place] [address] 11/12/2024 9:45 AM EDT Office Visit [address] [address] documented as of this encounter Visit Diagnoses Not on filedocumented in this encounter Additional Health Concerns Assessment Noted Time PHQ-9 Depression Total Score: 24 11/18/ 023 2:05 PM EDT documented as of this encounter Care Teams Library Manager Relationship Specialty Start Date End Date Nathan StanfordHAYLEE Bianchi PCP - General Family Medicine 11/24/22 12/12/22 Katrin Santoyo MD [address] [place] [address] PCP - General Internal Medicine 12/13/22 Edison Vieira MD [address] [place] [address] Pulmonary Disease 04/07/24 Joe Devi MD [address] [facility] 3rd [place] [address] Gastroenterology 04/07/24 Carito Roche DNP [address] [facility], [address] [place] [address] Nephrology 04/07/24 [employer] 04/11/24 documented as of this encounter
--- OUTSIDE RECORDS SUMMARY | 2024-09-19 15:25 | XMS_ITS | Encounter Summary ---
Author Organization [facility] [employer] [facility] and [facility] Address [address] [place] [phone] Care Team Providers Care Master Technician Name Role Phone Deep Pruitt APRN Primary Care Provider Reason for Visit * Reason Onset Date Comments Medication Refill 10/12/2021 Encounter Details Date Type Department Care Team (Late st Contact Info) Description 10/12/2021 Refill [facility] [address] [facility] [address] [facility] 2nd [place] [address] Taylor Malagon, [facility] [address] [phone] Medication Refill Social History Tobacco Use Types [...] Date Recorded PHQ-2 Total Score 0 10/12/2021 [facility] Occupat ional [facility] - Occupational Stress Questionnaire Answer [...] as of this encounter Care Teams Master Technician Relationship Specialty Start Date End Date Deep Pruitt APRN PCP - General 05/22/19 documented as of this encounter
--- OUTSIDE RECORDS SUMMARY | 2024-09-19 15:25 | XMS_ITS | Encounter Summary ---
Author Organization [facility] Address [address] [place] [address] Care Team Providers Care Soap Press Feeder Name Role Phone Deep Pruitt APRN Primary Care Provider [phone] Reason for Visit * Reason Comments Medication Problem Encounter Details Date Type Department Care Team ([facility] Contact Info) Description 10/11/2021 Telephone [facility] [address] [place] [address] Deep Pruitt APRN [address] [place] [address] Medication Problem Social History Tobacco [...] Date Recorded PHQ-2 Total Score 0 10/12/2021 [facility] of Occupat ional Health [...] 08 of October Spoke to sissy via flare man #[id number] (patti) patient states she spoke to the [...] if patient medication can be [facility] [place] [facility] [address] . Best contact: [phone] documented in this encounter Plan of Treatment Not on file documented as of this encounter Visit Diagnoses Not on filedocumented in this encounter Additional Health Concerns Infection Onset Date Last Indicated Resolved Time COVID-19 09/29/2021 09/29/2021 10/19/2021 7:19 PM EDT Assessment Noted Time PHQ-9 Depression Total Score: 0 10/08/19 22 1:27 PM EDT documented as of this encounter Care Teams Soap Press Feeder Relationship Specialty Start Date End Date Deep Pruitt APRN PCP - General 05/22/19 documented as of this encounter
--- OUTSIDE RECORDS SUMMARY | 2024-09-19 15:25 | XMS_ITS | Encounter Summary ---
Author Organization [facility] Address [address] [place] [address] Care Team Providers Care Spent Grain Dryer Name Role Phone Sonal Deep Niko LOPEZ Primary Care Provider Reason for Visit * Reason Comments Medication Refill Encounter Details Date Type Department Care Team (Late st Contact Info) Description 01/04/2021 Refill [facility] Nutrition at [address] [address] Zena Hines PA [address] [place] [phone] Medication Refill Social History Tobacco Use [...] PHQ-2 Total Score 0 11/18/2020 [facility] of Occupat [...] documented as of this encounter Care Teams Spent Grain Dryer Relationship Specialty Start Date End Date Deep Pruitt APRN PCP - General 05/22/19 documented as of this encounter
--- OUTSIDE RECORDS SUMMARY | 2024-09-19 15:25 | XMS_ITS | Encounter Summary ---
Author Organization [facility] Address [address] [place] [address] Care Team Providers Care Mid Level Net Developer Name Role Phone Deep Pruitt APRN Primary Care Provider Reason for Visit * Reason Comments Medication Refill Encounter Details Date Type Department Care Team ([facility] st Contact Info) Description 11/24/2020 Telephone [facility] [address] [place] [address] Deep Pruitt APRN [address] [place] [address] Medication Refill Social History Tobacco [...] Date Recorded PHQ-2 Total Score 0 11/18/2020 [facility] of Occupat ional [...] of certain medication. Call back number is [phone] (ecuadorean speaking) preferred pharmacy is [facility] [place] [address] [address] documented in this encounter Plan [...] documented as of this encounter Care Teams Mid Level Net Developer Relationship Specialty Start Date End Date Deep Pruitt APRN PCP - General 05/22/19 documented as of this encounter
--- OUTSIDE RECORDS SUMMARY | 2024-09-19 15:25 | XMS_ITS | Encounter Summary ---
Author Organization [facility] [employer] and [facility] Address [address] [place] [phone] Care Team Providers Care Church Communications Administrator Name Role Phone Deep Pruitt APRN Primary Care Provider [phone] Reason for Visit * Reason Onset Date Comments Medication Refill 09/30/2021 Encounter Details Date Type Department Care Team (Late st Contact Info) Description 09/30/2021 Refill [facility] [address] 2nd [place] [address] Kaity Harris, FIELD HOCKEY COACH [address] [place] [phone] Medication Refill Social History Tobacco Use Types [...] Score 5 09/14/[address] [facility] - Occupational Stress Questionnaire Answer [...] documented as of this encounter Care Teams Church Communications Administrator Relationship Specialty Start Date End Date Deep Pruitt APRN PCP - General 05/22/19 documented as of this encounter
--- OUTSIDE RECORDS SUMMARY | 2024-09-19 15:25 | XMS_ITS | Encounter Summary ---
Author Organization [facility] Address [address] [place] [address] Care Team Providers Care Systems Architecture Analyst Name Role Phone Deep Pruitt JOHN Primary Care Provider Reason for Visit * Reason Onset Date Comments Medication Refill 10/12/2021 Encounter Details Date Type Department Care Team (Late st Contact Info) Description 10/12/2021 Refill [facility] Nutrition at [address] [phone] Angie Mcghee MD [address] [place] [phone] Medication Refill Social History Tobacco Use Types [...] Date Recorded PHQ-2 Total Score 0 10/12/2021 [facility] Occupat ional Health - [...] documented as of this encounter Care Teams Systems Architecture Analyst Relationship Specialty Start Date End Date Deep Pruitt APRN PCP - General 05/22/19 documented as of this encounter
--- OUTSIDE RECORDS SUMMARY | 2024-09-19 15:26 | XMS_ITS | Encounter Summary ---
Author Organization [facility] Address [address] [place] [address] Care Team Providers Care Machine Stripper Cutter Name Role Phone Romelia Pruittian Niko LOPEZ Primary Care Provider Reason for Visit * Reason Comments Medication Refill Encounter Details Date Type Department Care Team ([facility] st Contact Info) Description 09/16/2021 Refill [facility] [address] [place] [address] Carlos Eduardo Joyner MD [address] [place] [phone] Medication Refill Social History Tobacco Use [...] Date Recorded PHQ-2 Total Score 5 09/14/2021 [facility] Occupat ional Health [...] as of this encounter Care Teams Machine Stripper Cutter Relationship Specialty Start Date End Date Deep Pruitt APRN PCP - General 05/22/19 documented as of this encounter
--- OUTSIDE RECORDS SUMMARY | 2024-09-19 15:26 | XMS_ITS | Encounter Summary ---
Author Organization [facility] Address [address] [place] [address] Care Team Providers Care Supervisor Framing Mill Name Role Phone Deep Pruitt APRN Primary Care Provider Reason for Visit * Reason Comments Other Advice Only Encounter Details Date Type Department Care Team ([facility] Contact Info) Description 09/28/2021 Telephone [facility] [address] [place] [address] Deep Pruitt APRN [address] [place] [address] Other; Advice Only Social History [...] Date Recorded PHQ-2 Total Score 5 09/14/2021 [facility] - Occupational Stress [...] be given because his underlying condition. Patient [phone] documented in this encounter Plan of Treatment Not on file documented as of this encounter Visit Diagnoses Not on filedocumented in this encounter Additional Health Concerns Infection Onset Date Last Indicated Resolved Time COVID-19 09/29/2021 09/29/2021 10/19/2021 7:19 PM EDT Assessment Noted Time PHQ-9 Depression Total Score: 7 09/15/19 22 10:31 AM EDT documented as of this encounter Care Teams Supervisor Framing Mill Relationship Specialty Start Date End Date Deep Pruitt APRN PCP - General 05/22/19 documented as of this encounter
--- OUTSIDE RECORDS SUMMARY | 2024-09-19 15:26 | XMS_ITS | Encounter Summary ---
Author Organization [facility] Address [address] [place] [address] Care Team Providers Care Package Dyer Name Role Phone Deep Pruitt APRN Primary Care Provider [phone] Reason for Visit * Reason Comments Medication Refill Encounter Details Date Type Department Care Team ([facility] st Contact Info) Description 10/20/2020 Refill [facility] [address] [place], [place] [phone] Deep Pruitt APRN [address] [place] [address] Medication Refill Social History Tobacco [...] documented as of this encounter Care Teams Package Dyer Relationship Specialty Start Date End Date Deep Pruitt APRN PCP - General 05/22/19 documented as of this encounter
--- OUTSIDE RECORDS SUMMARY | 2024-09-19 15:26 | XMS_ITS | Encounter Summary ---
Author Organization [facility] Address [address] [place] [address] Care Team Providers Care Driver Manager Name Role Phone Deep Pruitt APRN Primary Care Provider Reason for Visit * Reason Comments Medication Refill Encounter Details Date Type Department Care Team ([facility] st Contact Info) Description 09/16/2021 Refill [facility] [address] [place] [address] Deep Pruitt APRN [address] [place] [phone] Medication Refill Social History Tobacco Use [...] PHQ-2 Total Score 5 09/14/2021 [facility] of Occupat ional [...] documented as of this encounter Care Teams Driver Manager Relationship Specialty Start Date End Date Deep Pruitt APRN PCP - General 05/22/19 documented as of this encounter
--- OUTSIDE RECORDS SUMMARY | 2024-09-19 15:26 | XMS_ITS | Encounter Summary ---
Author Organization [facility] Address [address] [place] [address] Care Team Providers Care Director Of Assessment Name Role Phone Deep Pruitt APRN Primary Care Provider Reason for Visit * Reason Comments Medication Refill Encounter Details Date Type Department Care Team ([facility] st Contact Info) Description 11/11/2020 Refill [facility] [address] [place] [address] Deep Pruitt APRN [address] [place] [phone] Medication Refill Social History Tobacco Use [...] Answer Date Recorded PHQ-2 Score 2 07/07/2020 [facility] of Occupat ional [facility] - Occupational Stress Questionnaire Answer Date Recorded [...] of this encounter Care Teams Director Of Assessment Relationship Specialty Start Date End Date Deep Pruitt APRN PCP - General 05/22/19 documented as of this encounter
--- OUTSIDE RECORDS SUMMARY | 2024-09-19 15:26 | XMS_ITS | Encounter Summary ---
Author Organization [facility] Address [address] [place] [address] Care Team Providers Care Health Informatics Instructor Name Role Phone Deep Pruitt APRN Primary Care Provider Encounter Details Date Type Department Care Team ([facility] st Contact Info) Description 10/26/2020 Scanned Document [facility] [address] [place], [place] [phone] Deep Pruitt APRN [address] [place] [address] Social History Tobacco Use Types [...] as of this encounter Care Teams Health Informatics Instructor Relationship Specialty Start Date End Date Deep Pruitt APRN PCP - General 05/22/19 documented as of this encounter
--- OUTSIDE RECORDS SUMMARY | 2024-09-19 15:26 | XMS_ITS | Encounter Summary ---
Author Organization [facility] Address [address] [place] [address] Care Team Providers Care Cable Stretcher And Tester Name Role Phone Deep Pruitt APRN Primary Care Provider Encounter Details Date Type Department Care Team (Latest Contact Info) Description 09/13/2021 Transcribed Orders [facility] Laboratory Specimens [address] [place] [address] Deep Pruitt APRN [address] [place] [address] Encounter for routine screening for [...] ng/mL 09/13/2021 1:44 PM EDT [facility] Prostate Specific Antigen, Free (YH) 0.28 0.00 - 3.90 ng/mL 09/13/2021 1:44 PM EDT [facility] Comment:Prostate Specific An tigen, Free Percentage can not be calculated. PSA, Total value out of appropriate range. Blood Venipuncture / Unknown 09/09/2021 12:05 PM EDT 09/13/2021 10:48 AM EDT Narrative [facility] - 09/13/2021 1:44 [...] LAB BLOOD ORDERABLES Final Result [facility] [address] [place] [address] documented in this encounter Visit Diagnoses Diagnosis Encounter for routine screening for malformation using ultrasonics (HC CODE)- Primary Encounter for routine screening for malformation using ultrasonics Special screening for malignant neoplasm of prostate documented in this encounter Additional Health Concerns Infection Onset Date Last Indicated Resolved Time COVID-19 09/29/2021 09/29/2021 10/19/2021 7:19 PM EDT Assessment Noted Time PHQ-9 Depression Total Score: 2 09/09/19 22 2:15 PM EDT documented as of this encounter Care Teams Cable Stretcher And Tester Relationship Specialty Start Date End Date Deep Pruitt APRN PCP - General 05/22/19 documented as of this encounter
--- OUTSIDE RECORDS SUMMARY | 2024-09-19 15:26 | XMS_ITS | Encounter Summary ---
Author Organization [facility] Address [address] [place] [address] Care Team Providers Care Border Measurer And Cutter Name Role Phone Deep Pruitt APRN Primary Care Provider Encounter Details Date Type Department Care Team (Latest Contact Info) Description 09/09/2021 Transcribed Orders [facility] [address] [place] [address] Deep Pruitt APRN [address] [place] [address] Encounter for routine screening for [...] Date Recorded PHQ-2 Total Score 2 09/08/2021 [facility] - Occupational Stress Questionnaire Answer [...] Orde r Schedule TSH w/reflex to FT4 ([facility] LMW Q YH) Lab Routine Encounter [...] health care facility TSH W/REFLEX TO FT4 ([facility] LMW Q YH) Routine 09/09/2021 12:05 [...] general medical examination at a [facility] care facility ALBUMIN/CREATININE PANEL, URINE, RANDOM Routine 09/09/2021 11:01 AM EDT Encounter for routine screening for malformation using ultrasonics Special screening for malignant neoplasm of prostate Routine general medical examination at a [facility] CBC WITH AUTO DIFFERENTIAL Routine 09/09/2021 10:58 AM EDT Encounter for routine screening for malformation using ultrasonics Special screening for malignant neoplasm of prostate Routine general medical examination at a [facility] CBC AND DIFFERENTIAL Routine 09/09/2021 10:58 AM EDT Encounter for routine screening for malformation using ultrasonics Special screening for malignant neoplasm of prostate Routine general medical examination at a [facility] HEMOGLOBIN A1C Routine 09/09/2021 10:58 [...] in the 2-4 ng/mL range. Deep Pruitt [facility] LAB BLOOD ORDERABLES Final Result Performing Organization Address City/State/[facility] Co de Phone Number [facility]IC[facility] [address] [place] [address] * (ABNORMAL) Comprehensive metabolic panel (09/09/2021 12:05 PM EDT) Sodium 140 136 - 144 mmol/L 09/09/2021 2:42 PM EDT [facility] Potassium 4.9 3.3 - 5.3 mmol/L 09/09/2021 2:42 PM EDT [facility] Chloride 101 98 - 107 mmol/L 09/09/2021 2:42 PM EDT [facility] CO2 27 20 - 30 mmol/L 09/09/2021 2:42 PM EDT [facility] Anion Gap 12 7 - 17 09/09/2021 2:42 PM EDT [facility] Glucose 148(H) 70 - 100 mg/dL 09/09/2021 2:42 PM EDT [facility] BUN 31(H) 6 - 20 mg/dL 09/09/2021 2:42 PM EDT [facility] Creatinine 1.40(H) 0.40 - 1.30 mg/dL 09/09/2021 2:42 PM EDT [facility] Calcium 9.5 8.8 - 10.2 mg/dL 09/09/2021 2:42 PM T [facility] BUN/Creatinine Ratio 22.1 8.0 - 23.0 0509/2021 2:42 PM EDT [facility] Total Protein 6.4(L) 6.6 - 8.7 g/dL 09/09/2021 2:42 PM EDT [facility] Albumin 3.6 3.6 - 4.9 g/dL 09/09/2021 2:42 PM T [facility] Total Bilirubin 0.2 <=1.2 mg/dL 09/09/2021 2:42 PM T [facility] Alkaline Phosphatase 135(H) 9 - 122 U/L 09/09/2021 2:42 PM T [facility] Alanine Aminotransferase (ALT) 40 9 - 59 U/L 09/09/2021 2:42 PM T [facility] Comment:Calcium dobesilate c an cause artificially low ALT results at therapeutic concentrations Aspartate Aminotransferase (AST) 33 10 - 35 U/L 09/09/2021 2:42 PM T [facility] Globulin 2.8 2.3 - 3.5 g/dL 09/09/2021 2:42 PM T [facility] A/G Ratio 1.3 1.0 - 2.2 09/09/2021 2:42 PM T [facility] AST/ALT Ratio 0.8 See Comment 09/09/2021 2:42 PM T [facility] Comment: Adult with mild [...] >60 mL/min/1.7 3m2 09/09/2021 2:42 PM EDT [facility] Comment: Values under 60mL/min/1.73m2 may indicate CKD if noted for ?? more than 3 months. eGFR is only valid if creatinine is at steady state. eGFR (NON -Kittitian) 53 >60 mL/min/1.7 3m2 09/09/2021 2:42 PM EDT [facility] Comment: Values under 60mL/min/1.73m2 may indicate CKD if noted for ?? more than 3 months. eGFR is only valid if creatinine is at steady state. Blood Venipuncture / Unknown 09/09/2021 12:05 PM EDT 09/09/2021 12:05 PM EDT Deep Pruitt YARN CAR[employer]ER LAB BLOOD ORDERABLES Final Result Performing Organization Address City/[facility]/ZIP Co de Phone Number [facility] [address] [place] [address] * TSH w/reflex to FT4 ( [facility] LMW Q YH) (09/09/2021 12:05 PM EDT) Thyroid Stimulating Hormone 3.640 See Comment ??IU/mL 09/09/2021 2:42 PM EDT [facility] Comment: Male & Non- Females: 0.270-4.200 ??IU/mL 1st Trimester: 0.110-3.480 ??IU/mL 2nd Trimester: 0.320-3.850 ??IU/mL Blood Venipuncture / Unknown 09/09/2021 12:05 PM EDT 09/09/2021 12:05 PM EDT Deep Pruitt YARN CARRIER LAB BLOOD ORDERABLES Final Result Performing Organization Address City/[facility]/ZIP Co de Phone Number [facility] [address] [place] [address] * LDL cholesterol, direct (09/09/2021 12:05 PM EDT) LDL Direct 63 See Comment mg/dL 09/09/2021 2:41 PM EDT [facility] Comment: LDL Cholesterol (mg/dL) ?Adults (>=18 years) ?Children (<18 years) Desirable ?<100 ? <110 Above Desirable ?100-129 ?Not Established Borderline-High ?130-159 ?110- 129 High ? 160-189 ?>=130 Very High? >=190 ?Not Established Blood Venipuncture / Unknown 09/09/2021 12:05 PM EDT 09/09/2021 12:05 PM EDT us Deep Pruitt APRN LAB BLOOD ORDERABLES Final Result Performing Organization Address [facility]/ZIP Co de Phone Number [facility] [address] [place] [phone] [place] [address] * (ABNORMAL) Albumin/creatinine panel, urine, random (09/09/2021 11:01 AM EDT) Albumin, Urine, Random 1,616.3 Reference Range Not Established mg/L 09/09/2021 2:52 PM EDT [facility] Creatinine, Urine, Random 35 Reference Range Not Established mg/dL 09/09/2021 2:52 PM EDT [facility] Albumin/Creatin ine Ratio, Urine, Random 4,684.9(H ) <30.0 mg/g Cr 09/09/2021 2:52 PM EDT [facility] Comment: High albuminuria (formerly microalbuminuria): ??30-300 mg/g Cr Very high albuminuria (overt albuminuria): ? >300 mg/g Cr Urine Collection / Unknown 09/09/2021 11:01 AM EDT 09/09/2021 11:01 AM EDT Deep Pruitt APRN URINE ORDERABLES Final Resu lt Performing Organization Address [facility] Co de Phone Number [address] [address] [phone] * (ABNORMAL) CBC auto differential (09/09/2021 10:58 AM EDT) WBC 13.5(H) 4.0 - 11.0 x1000/??L 09/09/2021 2:16 PM EDT [facility] RBC 5.05 4.00 - 6.00 M/??L 09/09/2021 2:16 PM EDT [facility] Hemoglobin 13.9 13.2 - 17.1 g/dL 09/09/2021 2:16 PM EDT [facility] Hematocrit 46.10 38.50 - 50.00 % 09/09/2021 2:16 PM EDT [facility] MCV 91.3 80.0 - 100.0 fL 09/09/2021 2:16 PM EDT [facility] MCH 27.5 27.0 - 33.0 pg 09/09/2021 2:16 PM EDT [facility] MCHC 30.2(L) 31.0 - 36.0 g/dL 09/09/2021 2:16 PM EDT [facility] RDW-CV 15.1(H) 11.0 - 15.0 % 09/09/2021 2:16 PM EDT [facility] Platelets 298 150 - 420 x1000/??L 09/09/2021 2:16 PM EDT [facility] MPV 13.0(H) 8.0 - 12.0 fL 09/09/2021 2:16 PM EDT [facility] Neutrophils 63.6 39.0 - 72.0 % 09/09/2021 2:16 PM EDT [facility] Lymphocytes 22.5 17.0 - 50.0 % 09/09/2021 2:16 PM EDT [facility] Monocytes 9.2 4.0 - 12.0 % 09/09/2021 2:16 PM EDT [facility] Eosinophils 3.6 0.0 - 5.0 % 09/09/2021 2:16 PM EDT [facility] Basophil 0.4 0.0 - 1.4 % 09/09/2021 2:16 PM EDT [facility] Immature Granulocytes 0.7 0.0 - 1.0 % 09/09/2021 2:16 PM EDT [facility] nRBC 0.0 0.0 - 1.0 % 09/09/2021 2:16 PM EDT [facility] ANC(Abs Neutrophil Count) 8.60(H) 2.00 - 7.60 x 1000/??L 09/09/2021 2:16 PM EDT [facility] Absolute Lymphocyte Count 3.05 0.60 - 3.70 x 1000/??L 09/09/2021 2:16 PM EDT [facility] Monocyte Absolute Count 1.24(H) 0.00 - 1.00 x 1000/??L 09/09/2021 2:16 PM EDT [facility] Eosinophil Absolute Count 0.49 0.00 - 1.00 x 1000/??L 09/09/2021 2:16 PM EDT [facility] Basophil Absolute Count 0.06 0.00 - 1.00 x 1000/??L 09/09/2021 2:16 PM EDT [facility] Absolute Immature Granulocyte Count 0.10 0.00 - 0.30 x 1000/??L 09/09/2021 2:16 PM EDT [facility] Absolute nRBC 0.00 0.00 - 1.00 x 1000/??L 09/09/2021 2:16 PM EDT [facility] Blood Venipuncture / Unknown 09/09/2021 10:58 AM EDT 09/09/2021 10:58 AM EDT Deep Pruitt APRN LAB BLOOD ORDERABLES Final Result [facility] [address] [place] [address] * (ABNORMAL) Hemoglobin A1c (09/09/2021 10:58 AM EDT) Hemoglobin A1c 11.5(H) 4.0 - 5.6 % 09/10/2021 6:36 PM EDT [facility] Comment: Hemoglobin A1c [...] mg/dL 09/10/2021 6:36 PM EDT [facility] Comment: Estimated average glucose (eAG) is a calculated value designed to estimate ??the expected average blood glucose level throughout the day from a single ??measurement of ??glycated hemoglobin A1C (HbA1c) and follows the calculation proposed by the [place] [employer] (Diabetes Care 31: 1-6, 2008). It may have less accuracy in children, women and patients with certain erythrocyte disorders. Blood Venipuncture / Unknown 09/09/2021 10:58 AM EDT 09/09/2021 10:58 AM EDT Deep Pruitt APRN LAB BLOOD ORDERABLES Final Result Performing Organization Address City/State/[facility] Co de Phone Number [facility] MEDICINE [address] [place] [address] documented in this encounter Visit Diagnoses Diagnosis [...] documented as of this encounter Care Teams Border Measurer And Cutter Relationship Specialty Start Date End Date Deep Pruitt APRN PCP - General 05/22/19 documented as of this encounter
--- OUTSIDE RECORDS SUMMARY | 2024-09-19 15:26 | XMS_ITS | Encounter Summary ---
Author Organization [facility] Address [address] [place] [address] Care Team Providers Care Delivery Room Supervisor Name Role Phone Deep Pruitt APRN Primary Care Provider Reason for Visit * Reason Comments Medication Refill Encounter Details Date Type Department Care Team ([facility] st Contact Info) Description 11/11/2020 Refill [facility] [address] [place] [address] Deep Pruitt APRN [address] [place] [phone] Medication Refill Social History Tobacco Use [...] 2 07/07/2020 [facility] of Occupat ional [facility] - Occupational Stress Questionnaire Answer [...] documented as of this encounter Care Teams Delivery Room Supervisor Relationship Specialty Start Date End Date Deep Pruitt APRN PCP - General 05/22/19 documented as of this encounter
--- OUTSIDE RECORDS SUMMARY | 2024-09-19 15:27 | XMS_ITS | Encounter Summary ---
Author Organization [facility] Address [address] [place] [address] Care Team Providers Care Tray Casting Machine Operator Name Role Phone Deep Pruitt APRN Primary Care Provider Reason for Visit * Reason Comments Medication Refill Encounter Details Date Type Department Care Team ([facility] st Contact Info) Description 09/23/2020 Refill [facility] [address] [place] [address] Deep Pruitt APRN [address] [place] [phone] Medication Refill Social History Tobacco Use [...] 2 07/07/2020 [facility] of Occupat ional [facility] - Occupational Stress Questionnaire Answer Date [...] documented as of this encounter Care Teams Tray Casting Machine Operator Relationship Specialty Start Date End Date Deep Pruitt APRN PCP - General 05/22/19 documented as of this encounter
--- OUTSIDE RECORDS SUMMARY | 2024-09-19 15:27 | XMS_ITS | Encounter Summary ---
Author Organization [facility] Address [address] [place] [address] Care Team Providers Care Family Law Paralegal Name Role Phone Romelia Pruittian Niko LOPEZ Primary Care Provider Encounter Details Date Type Department Care Team (Late st Contact Info) Description 09/08/2021 Scanned Document [facility] [address] [place] [address] External, Provider Social History Tobacco Use Types [...] Date Recorded PHQ-2 Total Score 2 09/08/2021 [facility] of Occupat ional [...] documented as of this encounter Care Teams Family Law Paralegal Relationship Specialty Start Date End Date Deep Pruitt APRN PCP - General 05/22/19 documented as of this encounter
--- OUTSIDE RECORDS SUMMARY | 2024-09-19 15:28 | XMS_ITS | Encounter Summary ---
Author Organization [facility] Address [address] [place] [address] Care Team Providers Care Manager Dental Name Role Phone Deep Pruitt APRN Primary Care Provider Reason for Visit * Reason Comments Medication Refill Encounter Details Date Type Department Care Team ([facility] st Contact Info) Description 09/17/2020 Refill [facility] [address] [place] [address] Deep Pruitt APRN [address] [place] [phone] Medication Refill Social History Tobacco Use [...] Answer Date Recorded PHQ-2 Score 2 07/07/2020 [facility] of Occupat ional [facility] - Occupational Stress Questionnaire Answer Date [...] as of this encounter Care Teams Manager Dental Relationship Specialty Start Date End Date Deep Pruitt APRN PCP - General 05/22/19 documented as of this encounter
--- OUTSIDE RECORDS SUMMARY | 2024-09-19 15:28 | XMS_ITS | Encounter Summary ---
Author Organization [facility] Address [address] [place] [address] Care Team Providers Care Oncology Radiation Physician Name Role Phone Romelia Pruittian Niko LOPEZ Primary Care Provider Encounter Details Date Type Department Care Team (Latest Contact Info) Description 08/10/2021 Transcribed Orders [facility] [address] [place] [address] Taylor Malagon, ENTRY LEVEL ELECTRICIAN [address] [place] [address] Stage 3a chronic kidney disease [...] - 4.5 mg/dL 08/10/2021 10:26 AM EDT [facility] MEDIC[facility] Blood Venipuncture / Unknown 08/10/2021 9:40 AM EDT 08/10/2021 9:56 AM EDT Taylor Malagon APRN LAB BLOOD ORDERABLES Fauzia guzman Result [facility]MENT OF [facility]ORY MEDICINE [address] [place] [address] documented in this encounter Visit Diagnoses Diagnosis Stage 3a chronic kidney disease (CKD) (HC Code)- Primary documented in this encounter Additional Health Concerns Infection Onset Date Last Indicated Resolved Time COVID-19 09/29/2021 09/29/2021 10/19/2021 7:19 PM EDT Assessment Noted Time PHQ-9 Depression Total Score: 11 022 2:28 PM EST documented as of this encounter Care Teams Oncology Radiation Physician Relationship Specialty Start Date End Date Deep Pruitt APRN PCP - General 05/22/19 documented as of this encounter
--- OUTSIDE RECORDS SUMMARY | 2024-09-19 15:28 | XMS_ITS | Clinical Summary ---
Author Organization [address] Address [address] [place] [id number] Care Team Providers Care Wax Room Supervisor Name Role Phone Deep Pruitt APRN Primary Care Provider Allergies Active Allergy Reactions Criticality Noted Date Comments Amlodipine Edema 03/28/2021 Pt develops lower leg swelling Penicillins Itching Medium 12/10/2018 Medications * This document contains information received from the source organization and may not represent a complete record from that organization. nebulizer accessories MiscIndications: Asthma exacerbation, mild (HC CODE) Use as directed.Asthma exacerbation, mild J45.901 Please [...] compressor, for nebulizer DeviIndications: Asthma exacerbation, mild (HC CODE) Use every 4-6 hours as directed for his Asthma exacerbation, Please deliver to Pt housePt has had Asthma all his life and [...] edema will order Compression sleeves today from [facility] today, Put on lower legs during [...] 10-5-8-8% topical (compound)Indica tions:Diabetic foot (HC Code) Apply to feet up to [...] ns:Schizoaffecti ve disorder, depressive type (HC Code) Take 1 capsule (80 mg total) by mouth daily with dinner. 30 capsule 3 03/21/20 22 Active ziprasidone (GEODON) 40 mg capsule Take 1 capsule (40 mg total) by mouth every morning. Take with food 30 capsule 3 03/21/20 Active traZODone (DESYREL) 150 mg tablet Take a full tab PO nightly 30 tablet 3 03/21/20 Active DULoxetine (CYMBALTA) 60 mg capsuleIndicatio ns:Schizoaffecti ve disorder, depressive type (HC Code) Take 1 capsule (60 mg total) by mouth 2 (two) times daily. 60 capsule 3 03/21/20 Active flash glucose (FREESTYLE ORTEGA 2 READER) scanning reader Use as directed to monitor blood sugar. E11.65, Z79.4 1 each 04/21/20 Active flash glucose (FREESTYLE ORTEGA 2 SENSOR) sensor kit Place 1 sensor on back of arm. Replace every 14 days. 6 kit 3 04/21/20 Active traMADoL (ULTRAM) 50 mg tabletIndication s:Bilateral [...] of insulin, Duration 99, Feeding difficulty R63.30 46569 mL 06/23/19 Active metFORMIN (GLUCOPHAGE) 1000 mg [...] to type 2 diabetes mellitus (HC Code) Place 1 patch onto the skin every 24 hours. Remove & Discard patch within 12 hours or as directed by MD Payton patch 06/23/19 Active insulin regular human CONCENTRATED [...] HFA) 230-21 mcg/actuation inhalerIndicatio ns:Asthma exacerbation, mild (HC CODE) Inhale 2 puffs into the lungs 2 (two) times daily. After use, rinse mouth with water. 36 g 06/23/19 23 Active fluticasone propionate (FLONASE) 50 mcg/actuation nasal sprayIndications :Asthma exacerbation, mild (HC CODE) Use 2 sprays in each nostril daily. [...] as needed for constipation. 180 tablet 06/24/19 Active atorvastatin (LIPITOR) 80 mg tabletIndication s:Hyperlipidemia [...] aerosol inhalerIndicatio ns:Moderate persistent asthma without complication (HC CODE) Inhale 2 puffs into the lungs every 4 (four) hours as needed for wheezing. 54 g 11 06/24/19 23 Active tiotropium bromide (SPIRIVA RESPIMAT) 1.25 mcg/actuation mist for inhalationIndica tions:Moderate persistent asthma without complication (HC CODE) Inhale 2 puffs into the lungs daily. [...] (two) times daily. 5 g 12 06/24/19 23 Active blood sugar diagnostic (ONETOUCH VERIO) test [...] AM with Arben Fountain DPM at the [facility] -Will f/u with Pt in a [...] appointment and was informed he can call [phone] to find a closer time Assessment & Plan (02/19/2022 1:59 PM EDT): -The Pt went to his [employer] and was c/o right kidney pain for the last 1 month -The Pt denies urinary hesitancy or any blood in his urine but has intermittent Kidney pain 3 out of 10 -Pt c/o increased bilateral kidney pain / especially when walking long distance COVID-19 09/29/2021 [...] worse at night - pathway utilized through [employer], patient eligible for molnupiravir, may benefit from [...] Ref. Range 04/07/2020 SPEP Interpretation Unknown ?? Lbsyi-7-Ujnjamff Latest Ref Range: 0.2 - 0.3 g/dL 0.3 Dfzoo-9-Oanitkam Latest Ref Range: 0.5 - 0.9 g/dL 1.1 (H) Interpretation Unknown Comment Only Abnormal Protein Band 2 Latest Ref Range: NONE DETECTED g/dL CANCELED Abnormal Protein Band 3 Latest Ref Range: NONE DETECTED g/dL CANCELED Dtzk-7-Byzueuhi Latest Ref Range: 0.4 - 0.6 g/dL 0.5 Cwbs-1-Hwlgknfx Latest Ref Range: 0.2 - 0.5 g/dL [...] 04/08/2020 17:50 ?? Ref. Range 04/07/2020 Free [place] Latest Ref Range: 3.3 - 19.4 mg/L 35.9 (H) Free Lambda Latest Ref Range: 5.7 - 26.3 mg/L 26.6 (H) Free [place]/Lambda Ratio Latest Ref Range: 0.26 - 1.65 [...] 15:12 Ref. Range 04/07/2020 SPEP Interpretation Unknown Xqiez-1-Burffcjq Latest Ref Range: 0.2 - 0.3 g/dL 0.3 Ksfgi-9-Kuwzfkke Latest Ref Range: 0.5 - 0.9 g/dL 1.1 (H) Interpretation Unknown Comment Only Abnormal Protein Band 2 Latest Ref Range: NONE DETECTED g/dL CANCELED Abnormal Protein Band 3 Latest Ref Range: NONE DETECTED g/dL CANCELED Ltxk-4-Famnyjhx Latest Ref Range: 0.4 - 0.6 g/dL 0.5 Xzai-7-Scifkhxd Latest Ref Range: 0.2 - 0.5 g/dL [...] 04/08/2020 17:50 ?? Ref. Range 04/07/2020 Free [place] Latest Ref Range: 3.3 - 19.4 mg/L 35.9 (H) Free Lambda Latest Ref Range: 5.7 - 26.3 mg/L 26.6 (H) Free [place]/Lambda Ratio Latest Ref Range: 0.26 - 1.65 1.35 ?? Results for DARREL BAHRDWAJ ( ) as of 04/03/2020 12:10 ?? [...] of 04/08/2020 17:50 Ref. Range 04/07/2020 Free [place] Latest Ref Range: 3.3 - 19.4 mg/L 35.9 (H) Free Lambda Latest Ref Range: 5.7 - 26.3 mg/L 26.6 (H) Free [place]/Lambda Ratio Latest Ref Range: 0.26 - 1.65 [...] 653 (H) Neuropathy due to type 2 diabetes mellitus 02/13 Assessment & Plan (03/26/2022 5:26 AM EST): [...] like to speak with his pcp first [phone] Phone Conversation with Pt over the phone: PCP called british speaking (uncontrolled diabetic) Pt over the phone, [...] Tried to call the Pt using the Central African Interpretor [id number], V/M was not set up so a [...] have CC'd Ricarda Du MD, his primary carton counter feeder. She has a phone consult with him on 07/08. Taylor Benjamin Assessment & Plan (05/20/2020 7:54 AM EST): [...] all the Pt medication bottle be in british, Pt had a medication (allopurinoL (ZYLOPRIM) 100 mg tablet) error because he can not read in Nigerien, the Pt was prescribed 1/2 tab but [...] next appointment to see me at the toll test desk worker ?? Latest Reference Range & Units 09/09/21 12/15/21 BUN 7 - 25 mg/dL 31 (H) 29 (H) Creatinine 0.70 - 1.30 mg/dL 1.40 (H) 1.55 (H) BUN/Creatinine Ratio 6 - 22 (calc) 22.1 19 eGFR (NON -Italian) >60 mL/min/1.73m2 53 eGFR (Afr Amer) >60 [...] Range: 8.0 - 23.0 22.1 eGFR (NON -Italian) Latest Ref Range: >60 mL/min/1.73m2 53 eGFR [...] Taylor Malagon APRN at the Nephrology at [address] [facility], The Renal department is working on getting the Pt a 24 hour HTN monitor to assess the effectiveness of his recent medication changes, used british interpretor [id number] ?? 07/13/2021 Renal Referral Note:?? Assessment and [...] effectiveness of his recent medication changes, used british interpretor [id number] 07/13/2021 Renal Referral Note: Assessment [...] given a referral to talk with the [facility] Glove Factory Sewer for further assessment of his current diet [...] Assessment & Plan (04/08/2020 6:04 PM EST): US RENAL on 02/04/2020 8:08 PM for [...] and magnesium supplements that he said a surveyor rod helper told him were good for his kidneys. [...] preparation for his first visit with a carton counter feeder, Ricarda Du MD on 04/07/2020. Assessment & Plan (02/12/2020 2:18 PM EDT): Pt was recently in the hospital for Kidney issues, the Pt missed a previous Kidney appointment and will ask Pt to reschedule another Kidney appointment Date & Time 02/25/2020 10:00 AM Provider Taylor Malagon APRN Department [facility] at [address] [facility] Nephrology [address] [facility] 2nd Floor [facility] [address] Comment: Pt needs a Kidney referral due [...] 23 (H) 23 (H) 14.7 eGFR (NON -Italian) Latest Ref Range: >60 mL/min/1.73m2 76 77 [...] (see MRI of Brain from 2017 under [facility] -Significant deficits on neurologic exam Memory loss and Left handed weakness -Imaging and prior evaluation -Current blood thinning agents is aspirin -Potential details to include, when relevant: poor GAIT, uses a walker to get around -How the diagnosis was made: Pt lived in [facility] at the time, Under Multimedia in [facility] see specific file at specific date [id number] Image MRI Result [facility] - MRI BRAIN CVA -09/25/2016 [id number] Image Evaluation [facility]- Left handed weakness note - 02/20/[address] ?? [address] head or MRI brain 05/15/2020 MRI BRAIN W 3D VOLUMETRIC ANALYSIS WO IV CONTRAST ([facility]) CLINICAL INDICATION: Memory Loss also h/o self reported strokes. -TECHNIQUE: Multiplanar and multisequence MRI of the brain without the administration of intravenous contrast. 3-D volumetric analysis was performed on the sagittal T1 MPRAGE images, using [employer]illioQuant software on an independent workstation. ??-COMPARISON: No [...] a letter to be given to the [employer] advising stating that the Pt is disabled and needs help with housing Is there a form to be fill out from the [employer] [facility] advising that the Pt is disabled and needs help with housing t 03/26/21 Oksana Fox to Deep Pruitt MOTORCYCLE DELIVERER Summary: Letters needed by patient This policy writer typist met with patient at the clinic today 03.26.21 per nurses request, to assistance with letters that the patient is requesting. This policy writer typist spoke to patient and patient is asking [...] Patient is also requesting a letter for [employer] advising that he is disabled. Patient stated that he has already applied for and wants this letter to help him get Housing CCM: 15 minutes 04/11/2021 Deep Pruitt APRN Assessment & Plan (05/31/2020 5:20 PM EST): Pt had a CVA from 2017 and needs Neuro clearance before getting a Colonoscopy Presumed etiology of prior stroke (see MRI of Brain from 2017 under [employer] [facility] Significant deficits on neurologic exam Memory loss and Left handed weakness Imaging and prior evaluation Current blood thinning agents is aspirin Potential details to include, when relevant: poor GAIT, uses a walker to get around How the diagnosis was made: Pt lived in [facility] at the time, Under Multimedia in [employer] see specific file at specific date [id number] Image MRI Result [facility] - MRI BRAIN CVA -09/25/2016 [id number] Image Evaluation [facility]- Left handed weakness note - [...] is working with his Diabetic Specialist at [facility] and has an appointment next week, will increase his Gababentin to 800 mg PO TID which has helped with his neuropathic pain, Spent 25 mins with Pt using the Manager Hydraulic Microalbuminuric diabetic nephropathy (HC Code) 09/26/2019 Assessment & Plan (06/24/2022 9:23 AM [...] Ricarda Du MD at the Nephrology at [address] [place] [address] Results for DARREL BHARDWAJ ( ) as [...] ) as of 09/19/2019 07:04 eGFR (NON -Italian) Latest Ref Range: > OR = 60 [...] for Bariatric surgery and Pt needs a molding machine tender Assessment & Plan (09/10/2021 5:42 PM EDT): Pt has a BMI of 40.4 and is working with the wellness clinic to work on his weight loss plan, putting a referral in for Bariatric surgery and Pt needs a molding machine tender Assessment & Plan (09/26/2019 9:45 AM EDT): Pt has a BMI of 40.4 and is working with the wellness clinic to work on his weight loss plan, putting a referral in for Bariatric surgery and Pt needs a molding machine tender Assessment & Plan (09/09/2019 2:47 PM EDT): [...] whole encounter. The interview was conducted in Central African which is my barrow language. I have encouraged Mr. Bhardwaj to contact us with any questions, concerns or clinical changes. Plan: 1. Continue current therapy. 2. No need for supplemental oxygen. Assessment & Plan (12/23/2021 12:10 PM EDT): -The Pt continues to feel like he is constantly SOB and is asking to be put on Oxygen MOTORCYCLE DELIVERER -The Pt was given a list of labs to complete and once done then the Pt will be scheduled appointment with his Welfare Aide -The Pt and the Welfare Aide will decide together if the pt needs to be on O2 MOTORCYCLE DELIVERER or not 08/18/2021 Pulmonary Note: Assessment: Mr. [...] ways in which he can request an radiologist diagnostic over the phone and I am happy [...] complaints are out of proportion to seemingly bwgy-fj-shofztxv asthma and his dyspnea is likely multifactorial. [...] ways in which he can request an radiologist diagnostic over the phone and I am happy [...] complaints are out of proportion to seemingly drte-ms-qjyjhrrg asthma and his dyspnea is likely multifactorial. [...] Return to clinic in 3 months . Ihsa Brown APRN Assessment, plan, and documentation in collaboration with Dr. Deep Yo. ?? [facility] Quality Initiatives: ?? Tobacco counseling: [...] allergies spent 20 mins with Pt using Central African Interpretor [id number] Assessment & Plan (11/14/2020 11:15 [...] 7 years for colon cancer screening purposes.??Used Central African interpretor 8245 Assessment & Plan (06/16/2021 10:23 [...] years for colon cancer screening purposes. Used Central African interpretor 8245 Assessment & Plan (09/13/2020 7:30 [...] years for colon cancer screening purposes. Used Central African interpretor 3293 Assessment & Plan (06/24/2020 4:13 PM EST): Pt was informed of the following message and told to call and was asked to call to make a colonoscopy appointment 06/03/20 12:29 PM Message from [facility] at [address] [place] [address] Called patient to cancel pre colon appointment, patient did not answer and there was no voicemail set up. Attempted to call patient x2 in a row and no answer either time. Patient does not need pre colon appointment, only needs to schedule Colonoscopy. No [employer] message sent because at the time of the call when scheduling the pre colon appointment patient stated he does not know how to use the [employer] application. Pre colon appointment cancelled. Assessment & [...] the Pt had colonoscopy at [facility] in [facility] and was told to return in [...] REPORT ? Patient: DARREL BHARDWAJ ?MR #: [id number] ([id number]) ?Submitted by: Hedy Hameed MD STOMACH, BIOPSY [...] disordered breathing. RECOMMENDATIONS / PLAN : -Current [employer] recommendations for treatment of [...] RT talked with Pt Called patient with [employer]. Nancy #[id number]. Patient said that he has an old ResMed that he received in [place]. He doesn't know his mode or settings. Nor does he know his previous DME Assessment & Plan (09/10/2021 5:40 PM EDT): The Pt has an Sleep Apnea appointment on 09/24/2021 at??4:20 PM with Ryanne Ocasio MD at the Diabetes Center at [address] [place] [address] Assessment & Plan (09/24/2019 3:03 PM EDT): [...] spent 45 mins with Pt with a cheese tester SLEEP STUDY - [facility] - [phone] Assessment & Plan (09/09/2019 3:22 PM EDT): Pt typically sleep 2.5 hours a night, Pt still has to return his sleep apnea machine to [place] before a sleep apnea clinic in [place] will talk to him, Pt has a BMI of 40.4 and PCP will put a referral in for sleep apnea for Pt today, spent 35 mins with Pt with a cheese tester Diabetic foot (HC Code) 02/07/2019 Assessment & Plan (06/24/2022 9:27 AM EST): The Pt continues to deal with bilateral foot pain and wears a pair of Diabetic shoes with specification ordered by his Real Time Trader Doctor Assessment & Plan (05/31/2021 2:00 PM EST): The Pt continues to deal with bilateral foot pain and needs to get a pair of Diabetic shoes with specification ordered by his Real Time Trader Doctor and will increase Gabapentin from 400 mg PO BID to 800 PO BID Assessment & Plan (01/04/2021 10:02 AM EDT): - recently seen in mid-December by Podiatry- note reviewed Assessment & Plan (10/14/2020 9:29 AM EDT): The Pt continues to deal with bilateral foot pain and needs to get a pair of Diabetic shoes with specification ordered by his Real Time Trader Doctor see below: 08/26/2020 Podiatry Note: Bilateral [...] Also using his neuropathic compounding formula from [employer] as an adjunctive therapy and likes it [...] is working with his Diabetic Specialist at [facility] and has an appointment next week, will increase his Gababentin to 800 mg PO TID and assess effectiveness in one month Assessment & Plan (02/07/2019 6:48 AM EDT): Pt needs a Podiatry appointment due to toe nails need to be cut and Pt needs establish care with a Real Time Trader for his annual diabetic foot care Diabetic eye exam (HC Code) 02/07/2019 Assessment & Plan (06/24/2022 9:29 AM EST): The Pt stated today that he saw his Eye Doctor, unable to see event in Epic Assessment & Plan (09/18/2020 6:10 PM EDT): Pt has complaints of vision changes and he blew a blood vessel on his sclera, 3 years ago the Pt would see his Retina Doctor who did a lazer every 6 month, Pt needs a retinal eye referral 09/18/2020 Jeovanny Lynn: I put a referral in for the Pt and lately the [facility] has not been given dates for appointments [...] is in need of seeing eye doctor [facility]. Patient can be reached at [phone]. Ms. Rosales can be reached at the same number [phone]. Thank you Deep Assessment & Plan (05/28/2020 2:38 PM EST): Used Interpretor 7199, Pt is asking for an Diabetic Eye [...] 2019, the Pt needs to call the [facility] [address] [place] [address] Assessment & Plan (10/14/2020 2:13 PM EDT): The Pt has been dealing with bilateral Hip arthritis for the past 5 months and will order PT to help with strength training and stretching Chronic post-traumatic stress disorder (PTSD) Schizoaffective disorder, depressive type (HC Co de) 01/14/2019 Need for home health care 01/01/2019 Assessment & Plan (02/07/2019 6:52 AM EDT): Pt is still in the process of establishing a Visiting Nurse for home care to help manage his multiple medications Assessment & Plan (01/04/2019 4:02 PM EDT): Pt needs a Central African speaking Nurse to help him manage his [...] medications -He has been following with the [facility] team and reports taking all of [...] decided to move his family back to [place] area due to being closer to family [...] billing issues. He also was supposed to pickle sorter a Dexa scanner/sensor, but he was unable [...] (DEXCOM G6 SENSOR) device and scanner Asked Content Editor to schedule a 1/2 hour Nurse [...] 200-300 average, checks ACHS -Pt has his [facility] appt on 04/21/2022 at 11:30 AM [...] Pt will continues to go to his [facility] appointments to review his Dexcom G6 numbers and make appropriate medication changes -If all that happens then the Pt can also scan before each meal, switch from taking 30 units of prandial insulin to start a Sliding Scale -Will leave note with Pt's Floor Scraper that the Pt needs to have Provider use a Manager Hydraulic due to his poor Nigerien skills -The Pt has received the Dexcom G6 stock raiser and scanner but still does not know [...] Pt will continues to go to his [facility] appointments to review his Dexcom G6 [...] 201-250=4u, 251-300=6u, 301-350=8u, 351-400=10u, 401- 450 call Thank you for your recommendations Looking forward [...] EDT): -Met with Pt and with our [facility] RN who was able to translate the [...] 190u??bid 2.Novolog 30??before meals + supplementary sliding ateuf454-627-->4u, 200-249-->6u,??250-299-->8u, 300-349-->10u, >350-->12u 3.continue with ??trulicity 4.5 mg weekly, jardiance 25 mg daily and metformin 1000 mg bid 4.contact us in 1 week to report BG 5.Check BS 4X/day. Keep organized log and bring it next time.??Call [facility] for use of Dexcom CGM 6.Hypoglycemia management:??Carry [...] insulin administer. -I recommend continuing with metformin, jarmeredith, trulicity. He is using at least 480 [...] yes ?? Recommendations: #Diabetes: 1. Continue with [id number] 190u bid 2.Novolog 30 before meals + supplementary sliding scale ?150-199-->??4??units ?200-249-->??6??units ?250-299-->??8??units ?300-349-->??10units ?>350-->?12 3.continue with trulicity 4.5 mg weekly, jardiance 25 mg daily and metformin 1000 mg bid 4.contact us in 1 week to report BG 5.Check BS 4X/day. Keep organized log and bring it next time. Call [email or web address] for use of Dexcom CGM 6.Hypoglycemia management: [...] his painful foot issues -Will talk with [facility] Nurse about the Pt and support systems may not be compliant with taking meds and Insulin on a regular basis -Will work on bring the Pt's A1C down, it has been in the 11's for the past year and Pt not wanting to see [facility] or [facility] Diabetic Specialist -Will have to set up [...] the Bariatric Doctor for weight loss -Used Manager Hydraulic # [id number] -Pt wished he could get his diabetic care restarted at the [facility] -Pt does not want to go to [facility] Diabetic Clinic or the [facility] clinic due to not feeling comfortable [...] Pt needs to be rescheduled with our [facility] Diabetic Clinic with Zena Hines PA, the Pt did not like dealing with [facility] due to not feeling comfortable with the [facility] Providers and has had missed multiple appointments The Pt continues to deal with an elevated A1C, Pt wished he could get his diabetic care restarted at the [facility], will refer today ?? Results for DARREL BHARDWAJ ( ) as of 09/10/2021 17:20 ?? Ref. Range 12/10/2018 03/12/2020 01/07/2021 09/09/2021 Hemoglobin A1c Latest Ref Range: <5.7 % of total Hgb 10.8 (H) 10.4 (H) 11.6 (H) 11.3 (H) 09/30/21 10:41 AM Polly Hightower, CASIE Message from Ryanne Ocasio MD sent at [...] MD sent at 09/30/2021 Regarding: RE: reschedule passenger service representative appointment I think this is his 3rd [...] Ocasio MD at the Diabetes Center at [address] [place] [address], Pt wished he could get his diabetic care restarted at the [facility], Pt advised to go to his scheduled [...] LDL 90 01/25/2021 MALCRR 3,278 (H) 09/16/2019 Outpatient/LINE PREP COOK meds BLOOD GLUCOSE METER ([employer] VERIO FLEX METER) device dulaglutide (TRULICITY) 4.5 mg/0.5 mL PnIj flash glucose (FREESTYLE ORTEGA 14 DAY) scanning reader FREESTYLE ORTEGA 14 DAY sensor kit insulin aspart (NOVOLOG FLEXPEN INSULIN) 100 unit/mL (3 mL) pen insulin regular human CONCENTRATED 500 units/mL (HUMULIN R U-500, CONC, KWIKPEN) injection pen JARDIANCE 25 mg tablet metFORMIN (GLUCOPHAGE) 1000 mg tablet - continues to see [facility] - recent finger stick readings 350, no symptoms of hyperglycemia - discussed with patient taking medications as prescribed as well as changing diet - recommended to reduce carb intake and simple carbs throughout the day and night and see if fasting glucose improved in morning - plans to see [facility] soon Assessment & Plan (04/23/2021 10:36 AM EST): The Pt continues to work with his [facility] Diabetic Specialist and stated that his Finger sticks range between 98-160, Pt needs to get additional labs to assess kidney fx and his diabetes Assessment & Plan (01/08/2021 1:21 PM EDT): The Pt continues to deal with elevated A1C and sees his Floor Scraper on a regular basis Results for DARREL [...] and has a f/u appointment with his Floor Scraper on 09/29/2020 08/27/2020 Endocrine referral: Assessment and [...] his blood sugars. Could also consider insulin fur coat sewer like pioglitazone at low dose. ?? Discussed [...] Krystle Santos RN Spoke with pharmacist at [facility], states if PCP will send scripts for [...] between 7 or 8 and talked through cheese tester [id number] that the Pt has to have the same amount of calories every meal so his sugars can stabilize Morning sugars 06/24/2020 was 119, 06/23/2020 was 253, was 349, Assessment & Plan (06/21/2020 6:52 AM EST): Images from the original note were not included. 06/15/2020 Endocrinology Note: Isha Carmen APRN Gallant, Brian S, APRN Hi Brian, I would not stop the Jardiance or [...] to 110 and send message to his feather baler Isha Carmen APRN??with [facility] Assessment & Plan (05/28/2020 3:01 [...] to 105 and send message to his feather baler Isha Carmen APRN with [facility] ?? Assessment & Plan (04/08/2020 [...] the care of Isha Carmen APRN with [facility] and was last prescribed insulin regular human CONCENTRATED 500 units/mL (HUMULIN R U-500, CONC, KWIKPEN) injection pen Inject 85 Units under the [...] - 64 pg/mL 64.2 74 (H) Vitamin O35-Dvhinwy Latest Ref Range: 20 - 50 ng/mL [...] Diabetic care will be transferred over to [facility] and he has the following appointment: 03/27/2020 11:00 AM with Julia Ceja RD at the Diabetes Center at [address] [facility] Assessment & Plan (02/14/2020 4:56 PM EDT): Patient called and stated he's a diabetic and was advised to speak with his pcp Deep if anything was wrong. He stated he woke up with a small cut in right foot on the small toe. I did offer the CC but stated he would like to speak with his pcp first [phone] (british speaking) Assessment & Plan (11/13/2019 7:10 PM [...] - 22 (calc) 23 (H) eGFR (NON -Italian) Latest Ref Range: > OR = 60 [...] Pt is currently seeing our Diabetic Specialist MOTORCYCLE DELIVERER at [facility], talking with MOTORCYCLE DELIVERER on phone the Pt has developed an [...] 10, Pt needs to meet with the [facility] Nurse with the goal to bring his [...] will continue to see Diabetic Clinic at [facility] for additional medication adjustments and will see [...] will continue to see Diabetic Clinic at [facility] and re-evaluate Pt care in one month [...] amount of time Patient staffed with Dr. Marin RTAda in 6-8 weeks to be seen by his rubber and plastics worker Dr. Newberry. ?? Attending Addendum: I [...] that he is on this. I contacted [facility] pharmacy and they reported that [...] call back to Fani Heath PharmD at [phone] 08/04/21 Fani Heath PharmD called Pt Called patient for scheduled pharmacist HTN visit. I was not able to reach patient and LVM requesting a call back. [place] [id number] assisted call. Of note, appears patient was dropping off 24 hr BP monitor today so will look for those results to assist in further BP control recommendations. Fani Heath, Diane Ramon Sr. Benton, lopez presi??n arterial no estaba joselin [...] Dr. Newberry and should be visible in MyChart. We would like you to please call [...] original note were not included. 03/26/2021 Deep Pruitt, SOIL SCIENTIST Shirali, Ricarda, MD Hello Dr Shirali, Ricarda: -Current B/P reading 148/88, the Pt continues [...] basis by his , will ask our [facility] Nurse to call Pt and verify their [...] basis by his , will ask our [facility] Nurse to call Pt and verify their [...] recent creatinine/potassium from 01/07 stable, recheck in [facility] this week Assessment & Plan (01/04/2021 9:26 [...] in one week to manage HTN, used academic computing director [id number], Pt denies experiencing any pain or tightness [...] EST): When the Pt was admitted to [facility] for [facility] they had stopped his Lisinopril [...] medication up weekly, spent 35 min with Manager Hydraulic 268, will f/u with Pt in one month [...] needs to get all his meds in british and has an appointment on 02/24/2020 02/24/2020 ??3:40 PM Provider Deep Pruitt APRN [facility] Assessment & Plan (02/22/2020 5:19 AM EDT): I see that Losartan help protect the kidneys from damage due to diabetes, I will discontinue the atenolol and start him at Losartan 25 mg and slowly titrate him up and the Pt needs to get all his meds in british and has an appointment on 02/24/2020 02/24/2020 ??3:40 PM Provider Deep Pruitt APRN [facility] Assessment & Plan (03/16/2019 6:10 AM EST): [...] (calc) 6.9 (H) The ASCVD Risk score (Lupe WOODWARD Jr., et al., 2013) failed to [...] to call Pt with results seen below (Central African only please) -And let him know that his UTI results were negative and there is no reason for antibiotics 09/08/2021 PCP Note: Pt c/o burning with urination for the past 2 day, will ask Pt to do a urine culture before prescribing an Antibiotic medication used Central African interpretor 3600 09/10/2021 PCP Addendum Note: The Pt has [...] the Pt had colonoscopy at [facility] in [facility] and was told to return in a year for further surveillance because he had several polyps removed, the concern is that the Pt had a CVA x 2 in 2017 and need Neuro clearance and the Neuro referral was put in today Assessment & Plan (11/13/2019 7:05 PM EDT): Pt had a Colonoscopy done in [facility] in [facility] one year ago and was told [...] AM EDT): 01/02/2020 the 49 yo male (Central African speaking only) with a BMI of 39.6, last A1C Dec 2019 increased to 13.7, in 2018 the Pt had a right sided stroke (minimal residual speech and walking issues) and is working with our Diabetic MOTORCYCLE DELIVERER Specialist to bring his sugars down, Pt [...] Plan (11/13/2019 7:08 PM EDT): Used a Manager Hydraulic 1308 for the entire 25 min visit, Pt [...] with Pt in 1 weeks, used a Manager Hydraulic 0682 throughout the visit -10/23/2019 the Pt again [...] with Pt in 2 weeks, used a Manager Hydraulic Propio through out the visit Assessment & [...] (H) -Pt will be referred to the [facility] Glove Factory Sewer to assess if his current diet is [...] Perla Rice RN message to Deep Pruitt MOTORCYCLE DELIVERER Call was returned to patient and his [...] input from his primary care physician and carton counter feeder would be helpful. Considerations would include: stopping amlodipine, increasing diuretics, re-assessing labs for kidney function (e.g. is proteinuria worsening), and dietary interventions. Also counseled patient that weight loss would likely be helpful. I think his tailer out can be helpful with managing his midfoot [...] input from his primary care physician and carton counter feeder would be helpful. Considerations would include: stopping amlodipine, increasing diuretics, re-assessing labs for kidney function (e.g. is proteinuria worsening), and dietary interventions. Also counseled patient that weight loss would likely be helpful. I think his tailer out can be helpful with managing his midfoot [...] plan for regular follow up with your tailer out, primary care physician, and carton counter feeder ?? Follow-up: as needed with me ?? Other interventions: recommend keeping the legs elevated when sitting (try to get feet above the level of the heart to get the fluid to come down; also recommend new pair of custom graduated compression stockings - wear daily - please call [facility] for an appointment to be measured for the new stockings so they fit you well. [facility] [address] [place] [id number] , PCP Notes: Will stop Amlodipine 5 mg PO QD and start Pt on Spirolactone 25 mg PO QD and assess in 2 weeks if Spirlactatone needs to be increased to 25 mg BID Will fax to [email or web address] order for Compression stocking and put contact info in AVS for the Pt to call and arrange for sizing CCM: 10 minutes 12/29/2020 Deep Pruitt APRN Assessment & Plan (06/24/2020 3:44 PM EST): 06/13/2020 the Pt had 2 pairs of Knee high compression stockings ordered and sent to [facility] and the Pt has to call [facility] so he can be measured and then pick them up when they arrive Assessment & Plan (06/13/2020 7:10 AM EST): Pt continues to deal with bilateral lower extremity edema will order Compression sleeves today from [facility] today, Put on lower legs during the day and take off at night, and wash and let dry and put on 2nd pair on the following day for Edema, lower extremity R60.0, will send to [facility] today Assessment & Plan (05/26/2020 5:58 [...] in 2 days at his next appointment Central African Interpretor #[id number] CCM: 20 minutes 05/26/2020 Deep Pruitt APRN [...] MD Department Ambulatory Surgical Specialties - Vascular [facility] [address] [facility] ??[facility] [address] Assessment & Plan (01/30/2020 4:18 PM EDT): [...] EST): When the Pt was admitted to [facility] for [facility] they had stopped his Lisinopril [...] needs to get all his meds in british, sued cheese tester Mikhail Lore Administrative encounter 02/07/201909/2020 Assessment & Plan (02/07/2019 7:01 AM EDT): The Pt asked for a CT State form Medical Report for Person who needs care , with Goal to have the Pt's partner as his adult live in caregiver, spent 10 mins filling it out Stroke (HC Code) (HC CODE) 02/07/2019 0 11/28/2021 Overview (02/07/2019): Per Pt report in 2017. Hypotensive episode 01/02/2019 11/29/19 22 Assessment & Plan (01/04/2019 3:29 PM EDT): [...] you attend chur ch or catholic services? More than 4 times per year [...] Date Recorded PHQ-2 Total Score 2 02/17/2022 [facility] [place] of Occupat ional Health - Occupational Stress [...] your living situation today? I have a [facility] place to live 05/19/2022 Sex [...] 04/28/2022, 0 07/14/2021, 08/26/2020, Additional history exists Influenza vaccine 01/06/2025 02/01/2024, , 03/24/2022, Additional history exists Colon cancer screening, Colonoscopy 09/03/2030 09/03/2020, 09/03/2020, 03/20/2012 Tetanus adult (Td q 10,TDAP once) 03/24/2032 03/24/2022, 10/05/2016 RSV Immunization (1 - 1-dose 75+ series) 2045 Hepatitis B vaccine series Completed 04/05, 10/05/2016, 08/17/2016 HIV screening Completed 12/10/2018 Hepatitis C screening Completed 02/06/2020, 019 Pneumococcal Vaccine (2 - 49 years) Discontinued 03/24/2022, 01/21/2021 Pneumococcal Vaccine (50+ years) Completed 03/24/2022, 01/21/2021 Covid-19 vaccine series Completed 02/01/20 24, 04/14/2021, 08/28/2020, Additional history exists Meningococcal Vaccine Aged Out [...] Localized edema Stage 3a chronic kidney disease PSA, TOTAL (Q) Routine 09/09/2021 9:01 AM EDT Screening for prostate cancer SD PROPHYLAXIS - ADULT Routine 08/10/2021 10:45 AM EDT Encounter for dental exam and cleaning w/o abnormal findings SD BITEWINGS - FOUR RADIOGRAPHC IMAGES Routine 07/05/2021 10:30 AM EST Encounter for dental examination SD PERIODIC ORAL EVALUATION EST PT Routine 07/05/2021 10:30 AM EST Encounter for dental examination Oral frictional keratosis Partially edentulous mandible, unspecified edentulism class Secondary dental caries associated with failed or defective dental congregational Dental caries on smooth surface penetrating into [...] Results * (ABNORMAL) POCT HgbA1c, total CPT: 14424 (06/23/2022 4:21 PM EST) Pathologist [facility] Hemoglobin A1C, POC 10.6 4.0 - 6.0 % [facility] Test Lot Number [id number] [facility] Test Lot Exp Date 09/18/22 Date Format: MM/DD/YYYY [facility] Blood specimen (specimen) 06/23/2022 4:21 PM EST Deep Pruitt APRN POINT OF CARE TEST ORDERABL ES Final Result Performing Organization Address [facility]/ZIP Co de Phone Number [facility] * (ABNORMAL) LDL cholesterol, direct (03/14/2022 9:17 AM EST) Direct LDL 101(H) <100 mg/dL [facility] [...] Comment Performing Lab: ?Site ID: [id number] ?Name: Immunetics-Immunetics ?Address: [address] [place] [address], [facility] [place] [address] ?Director: Yadira Bowman M.D. Deep Pruitt APRN LAB BLOOD ORDERABLES Final Result [facility] [address] [place] [address] * (ABNORMAL) Albumin/creatinine panel, urine, random (02/15/2022 2:02 PM EDT) Pathologist [facility] Albumin, Urine, Random 1,885.3 Reference Range Not Established mg/L 02/15/2022 3:42 PM EDT [facility]ORAT[facility] MEDICINE Creatinine, Urine, Random 60 Reference Range Not Established mg/dL 02/15/2022 3:42 PM EDT [facility]ICINE Albumin/Creatin ine Ratio, Urine, Random 3,168.6(H ) <30.0 mg/g Cr 02/15/2022 3:42 PM EDT [facility]ORAT[facility] MEDICINE Comment: Moderately increased albuminuria (formerly microalbuminuria): ??30-300 mg/g Cr Significantly increased albuminuria (overt albuminuria): ? >300 mg/g Cr Urine Collection / Unknown 02/15/2022 2:02 PM EDT 02/15/2022 2:59 PM EDT Yue Dominguez SOIL SCIENTIST URINE ORDERABLES Final Res ult [facility] DEPARTMENT OF LABORATORY MEDICINE [address] [place] [address], [facility] [phone] * PSA, total (Q) (09/09/2021 9:01 AM [...] Comment Performing Lab: ?Site ID: [id number] ?Name: Immunetics-Immunetics ?Address: [address] [place] [address], [place] [address] ?Director: Yadira Bowman M.D. us Deep Pope Sonal SOIL SCIENTIST LAB BLOOD ORDERABLES Final Result [facility] [address] * Colonoscopy (09/03/2020 10:16 AM EDT) [facility] Colonoscopy [facility] Endoscopy Patient Name: Darrel Bhardwaj ? Procedure Date: 09/03/2020 10:16 AM ?Date of : 1970 Age: 50 ? Admit Type: Outpatient Gender: Male ?CSN #: [id number] Note Status: Finalized ?Procedure Date no Time: [...] bowel preparation was evaluated using the BBPS ([place] ? Bowel Preparation Scale) with scores of: [...] Procedure Code(s): ?? --- Professional --- ? 61540, Colonoscopy, flexible; with biopsy, single or ? multiple Diagnosis Code(s): ?? --- Professional --- ? Z86.010, Personal history of colonic polyps ? D12.0, Benign neoplasm of cecum CPT copyright 2018 [employer]. All rights reserved. The codes documented in this report are preliminary and upon nursing student review may be revised to meet current compliance requirements. Attending Participation: ? I personally performed the entire procedure. ? Nolan Llor, 09/03/2020 11:04:33 AM This report has been signed electronically. Number of Addenda: 0 Note Initiated On: 09/03/2020 10:16 AM Scope Withdrawal Time: 0 hours 10 minutes 36 seconds Total Procedure Duration: 0 hours 16 minutes 57 seconds Estimated Blood Loss: ? Estimated blood loss: none. Scope In: 10:41:36 AM Scope Out: 10:58:33 AM [facility] 09/03/2020 10:1 6 AM EDT Provider Not In System GI PROCEDURE ORDERABLES F inal Result Performing Organization Address [facility] Co de Phone Number [facility] * Hepatitis C Ab with reflex to HCV PCR (02/06/2020 7:18 AM EDT) Hepatitis C Antibody Negative Negative 02/06/2020 4:21 PM EDT [facility] DEPARTMENT OF LABORATORY MEDICINE Comment:A negative result do es not exclude HCV infection, since antibodies are not detectable for 4-8 weeks after initial infection, or may not develop in compromised hosts. In high-risk individuals, repeat antibody testing in 2 months and/or HCV RNA PCR should be considered. Blood Venipuncture / Unknown 02/06/2020 7:18 AM EDT 02/06/2020 8:06 AM EDT Jordyn Hills SOIL SCIENTIST LAB BLOOD ORDERABLES Fauzia l Result Performing Organization Address [facility] Co de Phone Number [facility] DEPARTMENT OF LABORATORY MEDICINE [address] [place] [address] * HIV 1/2 ag/ab, w/reflexes (Q) (12/10/2018 [...] ?? For additional information please refer to http://education.Concard.CommitChange/faq/MWV736 (This link is being provided for informational/ educational purposes only.) The performance of this assay has not been clinically validated in patients less than 2 years old. Blood 12/10/2018 10:3 2 AM EDT 12/10/2018 10:32 AM EDT us Carlos Eduardo Joyner MD LAB BLOOD ORDERABLES Fi nal Result [address] from Last 3 Months or Most Recently Relevant to Health Maintenance Insurance [place] Advance Directives * Full ACLS (Latest Code Status on File) Date Activated Date Inactivated Comments 02/04/2020 9:46 PM 02/07/2020 8:23 PM Question Answer Comments With Whom was the Code Status Discussed? Patient Care Teams Wax Room Supervisor Relationship Specialty Start Date End Date Deep Pruitt APRN PCP - General 05/22/19
--- OUTSIDE RECORDS SUMMARY | 2024-09-19 15:28 | XMS_ITS | Encounter Summary ---
Author Organization [email or web address] Address [address] [place] [address] Care Team Providers Care Curriculum And Instruction Director Name Role Phone Katrin Santoyo MD Primary Care Pro vider Edison Vieira MD Unavailable [phone] Joe Devi MD Unavailable [phone] Encounter Details Date Type Department Care Team (Late st Contact Info) Description 09/17/2024 9:45 AM EDT Office Visit [facility] [address] [place] [address] Moriah Herbert, HAYLEE [address] [place] [address] Chronic radicular lumbar pain (Primary Dx); Long-term current use of opiate analgesic Social History Tobacco Use Types Packs/Day Years [...] this encounter Progress Notes * Moriah Herbert, ELECTRIC POWER LINE EXAMINER - 09/17/2024 9:45 AM EDT Subjective: Darrel Cortes is a 54 y.o. male w/ PMH REGI, hypertension, GERD, hepatic steatosis, CKD, T2DM, CVA, who presents to the office for - Chronic Pain Clinic Group visits. Initial Group visit: 10/17/23 Group Topic: Gardening Chronic Pain History: Associated Diagnosis: chronic radicular [...] the morning and 30mg before bed Topicals: [id number]-xogursq-woxswd salicylate topical TID Related Specialists: Referral to [...] normal. Problem List Items Addressed This Visit Mental Health Long-term current use of opiate analgesic Overview Medication: Tramadol 50mg Q8H PRN Indication: chronic radicular lumbar pain Last DIRECTOR EXECUTIVE COMMUNICATIONS Agreement: 04/02/24 Additional considerations: BZO from outside prescriber Current Assessment & Plan Timeline: - 08/13/24: Group Visit - utox/pill count as expected - 09/17/24: Group Visit - utox/pill count as expected Neuro Chronic radicular lumbar pain - Primary Current Assessment & Plan -Good engagement and participation with Group Medical Visit model -Encouraged multifactorial approach to pain control including pharm and non- pharm modalities -Pill Count and Utox as expected Relevant Medications traMADol (Ultram) 50 MG tablet Other Relevant Orders POCT RIKKI-14 Urine Drug Screen (Completed) Follow up: 1-2 month for Group Chronic Pain Clinic. Follow up as scheduled with PCP, sooner as needed. * Gabriela Rea RN - 09/17/2024 9:45 AM EDT Images from the original note were not included. .DIRECTOR EXECUTIVE COMMUNICATIONS general car yard supervisor: PDMP reviewed today. Last fill date: 05/28/24 (Tramadol 50mg tid). Pill count not performed as patient does not have pills left, anticipated (0) to be remaining. Last fill 05/28/24 (pt takes it only PRN). New Rx sent. BZO from an outside provider. .UTOX completed. Negative for AMP, BAR, BUP, BZO, MARYLU, FTY, MDMA, MET, MOP, MTD, OXY, PCP, TCA, THC. UTOX as expected. documented in this encounter Miscellaneous Notes * Assessment & Plan Note - HAYLEE Walker - 09/18/2024 5:50 PM EDTAssociated Problem(s): Long-term current use of opiate analgesic Timeline: - 08/13/24: Group Visit - utox/pill count as expected - 09/17/24: Group Visit - utox/pill count as expected * Assessment & Plan Note - HAYLEE Walker - 09/18/2024 5:49 PM EDTAssociated Problem(s): Chronic radicular lumbar pain -Good engagement and participation with Group Medical Visit model -Encouraged multifactorial approach to pain control including pharm and non- pharm modalities -Pill Count and Utox as expected documented in this encounter Plan of Treatment Upcoming Encounters Date Type Department Care Team (Late st Contact Info) Description 10/07/2024 1:00 PM EDT Clinical Support [address] [address] 11/01/2024 1:15 PM EDT Office Visit [address] [address] Katrin Santoyo MD [address] [place] [address] 11/12/2024 9:45 AM EDT Office Visit [address] [address] documented as of this encounter Goals Goal Patient Goal Type Associated Problems Recent Progress Patient-Stated? Author Blood Pressure < 140/90 Blood Pressure 134/78(2024 1:13 PM EDT) No Piers-Gambl e, Eve, PharmD Hemoglobin A1c < 7 Result Component 10.2(08/23/19 1:13 PM EDT) No Piers-Gambl e, Eve, PharmD documented as of this encounter Procedures Procedure Name Priority Date/Time Associated Diagnosis Comments POCT RIKKI-14 URINE DRUG SCREEN Routine 09/17/2024 11:30 AM EDT Chronic radicular lumbar pain documented in this encounter Results * POCT RIKKI-14 Urine Drug Screen (09/17/2024 11:30 AM EDT) Urine Urine specimen obtained by clean catch procedure / Unknown 09/17/2024 11:30 AM EDT Narrative Gabriela Rea, RN - 09/17/2024 11:30 AM EDT negative AMP, BAR, BUP, BZO, MARYLU, FTY, MDMA, MET, MOP, MTD, OXY, PCP, TCA, THC. .UTOX cup Lot#[id number] Exp. 12/25/25 Internal Pass Control Moriah Herbert ELECTRIC POWER LINE EXAMINER POINT OF CARE TEST ENTER/EDIT ORDERABLES Final Result documented in this encounter Visit Diagnoses Diagnosis Chronic radicular lumbar pain- Primary Long-term current use of opiate analgesic Encounter for long-term (current) use of other medications documented in this encounter Additional Health Concerns Assessment Noted Time PHQ-9 Depression Total Score: 4 10/31/19 10:32 AM EDT documented as of this encounter Care Teams Curriculum And Instruction Director Relationship Specialty Start Date End Date Katrin aSntoyo MD [address] [place] [id number] PCP - General Internal Medicine 12/13/22 Edison Vieira MD [address] [place] [address] Pulmonary Disease 04/07/24 Joe Devi MD [address] [place] [address] 3rd [place] [address] Gastroenterology 04/07/24 Carito Roche DNP [address] [facility], [address] [place] [address] Nephrology 04/07/24 [place] 04/11/24 documented as of this encounter
--- OUTSIDE RECORDS SUMMARY | 2024-09-19 15:28 | XMS_ITS | Encounter Summary ---
Author Organization [facility] Address [address] [place] [phone] Care Team Providers Care Automotive Alignment Specialist Name Role Phone Deep Pruitt APRN Primary Care Provider Encounter Details Date Type Department Care Team (Late st Contact Info) Description 08/05/2021 Orders Only [facility] [address] [place] [address] Carolyn Marin MD [address] [place] [phone] Essential hypertension Social History Tobacco Use [...] Date Recorded PHQ-2 Total Score 4 07/13/2021 [facility] of [facility]at ional Health [...] as of this encounter Care Teams Automotive Alignment Specialist Relationship Specialty Start Date End Date Deep Pruitt APRN PCP - General 05/22/19 documented as of this encounter
--- OUTSIDE RECORDS SUMMARY | 2024-09-19 15:28 | XMS_ITS | Encounter Summary ---
Author Organization [employer] Address [address]t [place] [address] Care Team Providers Care Audiology Director Name Role Phone Katrin Santoyo MD Primary Care Pro vider Edison Vieira MD Unavailable Joe Devi MD Unavailable [phone] Reason for Visit * Reason Comments Leg Pain Encounter Details Date Type Department Care Team (Late st Contact Info) Description 09/19/2024 1:20 PM EDT Office Visit [facility] [address] [place] [address] Bilateral foot pain (Primary Dx); Type 2 [...] 36.4 ??C (97.5 ??F) 09/19/2024 1:07 PM ED T Respiratory Rate 17 09/19/2024 1:07 PM EDT Oxygen Saturation 98% 09/19/2024 1:07 PM EDT Inhaled Oxygen Concentration - - Weight 121 kg (266 lb 12.8 oz) 09/19/2024 1:07 P M EDT Height - - Body Mass Index 40.57 08/22/2024 1:07 PM EDT documented in this encounter Plan of Treatment Upcoming Encounters Date Type Department Care Team (Late st Contact Info) Description 10/07/2024 1:00 PM EDT Clinical Support [facility] [address] [place] [address] 11/01/2024 1:15 PM EDT Office Visit [facility] [address] [place] [address] Katrin Santoyo MD [address] [place] [address] 11/12/2024 9:45 AM EDT Office Visit [address] [address] Scheduled Orders Name Type Priority Associated Diagnoses Orde r Schedule Uric acid Lab Routine Bilateral foot pain Expected: 09/19/2024 (Approximate), Expires: 09/19/2025 Basic Metabolic Panel Lab Routine Bilateral foot pain Expected: 09/19/2024 (Approximate), Expires: 09/19/2025 CBC auto differential Lab Routine Bilateral foot pain Expected: 09/19/2024 (Approximate), Expires: 09/19/2025 XR Foot 3+ Views Left Imaging Routine Bilateral foot pain Expected: 09/19/2024, Expires: 09/19/2025 XR Foot 3+ Views Right Imaging Routine Bilateral foot pain Expected: 09/19/2024, Expires: 09/19/2025 documented as of this encounter Goals Goal Patient Goal Type Associated Problems Recent Progress Patient-Stated? Author Blood Pressure < 140/90 Blood Pressure 134/78(2024 1:13 PM EDT) No Eve Guzman PharmD Hemoglobin A1c < 7 Result Component 10.2(08/23/19 1:13 PM EDT) No Eve Guzman PharmD documented as of this encounter Procedures Procedure Name Priority Date/Time Associated Diagnosis Comments POCT GLUCOSE Routine 09/19/2024 1:18 PM EDT Type 2 diabetes mellitus with stage 3 chronic kidney disease, with long-term current use of insulin, unspecified whether stage 3a or 3b CKD (CMS/[facility]) documented in this encounter Results * (ABNORMAL) POCT glucose manually resulted (09/19/2024 1:18 PM EDT) Glucose Blood, POC 406(A) 60 - 200 mg/dL Blood Capillary blood specimen / Unknown 09/19/2024 1:18 PM EDT Billy Martínez MD POINT OF CARE TEST ENTER/EDIT OR DERABLES Final Result documented in this encounter Visit Diagnoses Diagnosis Bilateral foot pain- Primary Type 2 diabetes mellitus with stage 3 chronic kidney disease, with long-term current use of insulin, unspecified whether stage 3a or 3b CKD (CMS/HCC) documented in this encounter Additional Health Concerns Assessment Noted Time PHQ-9 Depression Total Score: 4 10/31/19 24 10:32 AM EDT documented as of this encounter Care Teams Audiology Director Relationship Specialty Start Date End Date Katrin Santoyo MD [address] [place] [address] PCP - General Internal Medicine 12/13/22 Edison Vieira MD [address] [place] [address] Pulmonary Disease 04/07/24 Joe Devi MD [address] [facility] 3rd [place] [address] Gastroenterology 04/07/24 Carito Roche DNP [address] [facility], [address] [place] [address] Nephrology 04/07/24 true[x] [employer] 04/11/24 documented as of this encounter
--- OUTSIDE RECORDS SUMMARY | 2024-09-19 15:28 | XMS_ITS | Encounter Summary ---
Author Organization [employer] Address [address] 7t [place] [address] Care Team Providers Care Umbrella Tipper Name Role Phone Katrin Santoyo MD Primary Care Pro vider Edison Vieira MD Unavailable [phone] Joe Devi MD Unavailable [phone] Encounter Details Date Type Department Care Team (Latest Contact Info) Description 09/17/2024 Travel Social History Tobacco Use Types Packs/Day [...] Description 10/07/2024 1:00 PM EDT Clinical Support [address] [address] 11/01/2024 1:15 PM EDT Office Visit [address] [address] Katrin Santoyo MD [address] [place] [address] 11/12/2024 9:45 AM EDT Office Visit [address] [address] documented as of this encounter Goals Goal [...] of this encounter Care Teams Umbrella Tipper Relationship Specialty Start Date End Date Katrin Santoyo MD [address] [place] [address] PCP - General Internal Medicine 12/13/22 Edison Vieira MD [address] [place] [address] Pulmonary Disease 04/07/24 Joe Devi MD [address] 3rd [place] [address] Gastroenterology 04/07/24 Carito Roche DNP [address] [facility], [address] [place] [address] Nephrology 04/07/24 [employer] 04/11/24 documented as of this encounter
--- OUTSIDE RECORDS SUMMARY | 2024-09-19 15:28 | XMS_ITS | Encounter Summary ---
Author Organization [facility] Address [address] [place] [address] Care Team Providers Care Director Of Personnel Name Role Phone Deep Pruitt APRN Primary Care Provider Encounter Details Date Type Department Care Team ([facility] st Contact Info) Description 06/21/2022 Scanned Document [facility] [address] [place], [place] [phone] Deep Pruitt APRN [address] [place] [address] Social History Tobacco Use Types [...] you attend chur ch or christian services? More than 4 times per year [...] PHQ-2 Total Score 2 02/17/2022 [facility] - Occupational Stress Questionnaire Answer Date [...] your living situation today? I have a [facility] place to live 05/19/2022 Sex and [...] of this encounter Care Teams Director Of Personnel Relationship Specialty Start Date End Date Deep Pruitt APRN PCP - General 05/22/19 documented as of this encounter
--- OUTSIDE RECORDS SUMMARY | 2024-09-19 15:28 | XMS_ITS | Encounter Summary ---
Author Organization [facility] Address [address] [place] [address] Care Team Providers Care Commercial Announcer Name Role Phone Romelia Pruittian Niko LOPEZ Primary Care Provider [phone] Encounter Details Date Type Department Care Team (Late st Contact Info) Description 08/09/2021 Scanned Document [facility] [address] [place] [address] External, Provider Social History Tobacco Use Types [...] as of this encounter Care Teams Commercial Announcer Relationship Specialty Start Date End Date Deep Pruitt APRN PCP - General 05/22/19 documented as of this encounter
[2024-09-19 16:36] LABS: Lipase 117 U/L (8-78); Uric Acid 6.3 mg/dL (3.4-7.0)
[2024-09-19 16:57] LABS: Ferritin 32 ng/mL (20-250); Vitamin D 25-OH Total 12.7 ng/mL (>30)
[2024-09-19 16:58] LABS: Cortisol Random 5.1 ug/dL
[2024-09-19 17:00] LABS: Anion Gap 11 (12-20); Blood Urea Nitrogen 37 mg/dL (9-16); Calcium 8.4 mg/dL (8.4-10.2); Carbon Dioxide 24 mmol/L (22-29); Chloride 108 mmol/L (96-108); Estimated Glomerular Filt Rate 14; Glucose Random 280 mg/dL (60-115); Iron 56 mcg/dL (45-160); Percent Iron Saturation 29 % (15-50); Phosphorus 3.5 mg/dL (2.7-4.5); Potassium 3.7 mmol/L (3.3-5.1); Sodium 139 mmol/L (135-145); Total Iron Binding Capacity 192 mcg/dL (228-428); Unsaturated Iron Binding 136 ug/dL
[2024-09-19 17:04] LABS: Parathyroid Hormone Intact 683.9 pg/mL (8.7-77.1)
[2024-09-24 14:48] LABS: Metanephrine, Free <25 pg/mL (<=57); Normetanephrines, Free 136 pg/mL (<=148); Total Metanephrine, Free 136 pg/mL (<=205)
[2024-09-27 15:14] LABS: Plasma Renin Activity 3.88 ng/mL/h (0.25-5.82)
== END 2024-09-19 14:40 | disposition home or self-care (01) ==
LOC: HO.HHCL 14:39
PROVIDERS: Family Medicine; Student in an Organized Health Care Education/Training Program; Visit Provider Internal Medicine Nephrology
DX: M79.671 Pain in right foot (principal); M79.672 Pain in left foot; D35.00 Benign neoplasm of unspecified adrenal gland; E11.21 Type 2 diabetes mellitus with diabetic nephropathy; E11.22 Type 2 diabetes mellitus with diabetic chronic kidney disease; N18.4 Chronic kidney disease, stage 4 (severe); Z79.4 Long term (current) use of insulin; M10.9 Gout, unspecified
CPT/HCPCS: 36415; 80048; 82088; 82306; 82533; 82728; 83540; 83690; 83835; 83970; 84100; 84550

== ENCOUNTER 2024-09-23 11:28 | Outpatient (REF) | payer MEDICAID, SELFPAY ==
--- OUTSIDE RECORDS SUMMARY | 2024-09-23 12:11 | XMS_ITS | Encounter Summary ---
Author Organization [employer] Address [address] 7t [place] [address] Care Team Providers Care International Relations Teacher Name Role Phone Katrin Santoyo MD Primary Care Pro vider Edison Vieira MD Unavailable [phone] Joe Devi MD Unavailable [phone] Reason for Visit * Reason Comments Med Refill Encounter Details Date Type Department Care Team (Late st Contact Info) Description 02/11/[address] [facility] [address] [place] [address] Moriah Herbert FNP [address] [place] [address] Chronic radicular lumbar pain Social History Tobacco [...] Description 10/07/2024 1:00 PM EDT Clinical Support [address] [address] 11/01/2024 1:15 PM EDT Office Visit [address] [address] Katrin Santoyo MD [address] [place] [address] 11/12/2024 9:45 AM EDT Office Visit [address] [address] documented as of this encounter Goals Goal [...] documented as of this encounter Care Teams International Relations Teacher Relationship Specialty Start Date End Date Katrin Santoyo MD [address] [place] [address] PCP - General Internal Medicine 12/13/22 Edison Vieira MD 5 [place] [address] Pulmonary Disease 04/07/24 Joe Devi MD [address] [facility] 3rd [place] [address] Gastroenterology 04/07/24 Carito Roche DNP [address] [facility], [address] [place] [address] Nephrology 04/07/24 [facility] 04/11/24 documented as of this encounter
--- OUTSIDE RECORDS SUMMARY | 2024-09-23 12:11 | XMS_ITS | Encounter Summary ---
Author Organization [facility] Address [address] [place] [address] Care Team Providers Care Project Management Instructor Name Role Phone Deep Pruitt APRN Primary Care Provider Reason for Visit * Reason Comments Medication Refill Encounter Details Date Type Department Care Team ([facility] st Contact Info) Description 06/07/2022 Refill [facility] [address] [place], [place] [phone] Deep Pruitt APRN [address] [place] [address] Medication Refill Social History Tobacco [...] Date Recorded PHQ-2 Total Score 2 02/17/2022 [facility] of Occupat ional [...] your living situation today? I have a [facility] place to live 05/19/2022 Sex [...] documented as of this encounter Care Teams Project Management Instructor Relationship Specialty Start Date End Date Deep Pruitt APRN PCP - General 05/22/19 documented as of this encounter
--- OUTSIDE RECORDS SUMMARY | 2024-09-23 12:11 | XMS_ITS | Encounter Summary ---
Author Organization [employer] Address [address] 7t [place] [address] Care Team Providers Care Capacitor Pack Press Operator Name Role Phone Katrin Santoyo MD Primary Care Pro vider Edison Vieira MD Unavailable [phone] Joe Devi MD Unavailable [phone] Encounter Details Date Type Department Care Team ([facility] st Contact Info) Description 09/20/2024 Results Follow-Up [facility] [address] [place] [phone] Billy Martínez MD [address] [place] [address] POCT glucose manually resulted, Uric acid, Basic Metabolic Panel Social History Tobacco Use Types Packs/Day Years [...] Description 10/07/2024 1:00 PM EDT Clinical Support [address] [address] 11/01/2024 1:15 PM EDT Office Visit [address] [address] Katrin Santoyo MD [address] [place] [address] 11/12/2024 9:45 AM EDT Office Visit [address] [address] documented as of this encounter Goals Goal [...] documented as of this encounter Care Teams Capacitor Pack Press Operator Relationship Specialty Start Date End Date Katrin Santoyo MD [address] [place] [address] PCP - General Internal Medicine 12/13/22 Edison Vieira MD [address] [place] [address] Pulmonary Disease 04/07/24 Joe Devi MD [address] [facility] 3rd [place] [address] Gastroenterology 04/07/24 Carito Roche DNP [address] [facility], [address] [place] [address] Nephrology 04/07/24 [employer] 04/11/24 documented as of this encounter
--- OUTSIDE RECORDS SUMMARY | 2024-09-23 12:11 | XMS_ITS | Encounter Summary ---
Author Organization [facility] Address [address] [place] [address] Care Team Providers Care Sheeter Waxer Operator Name Role Phone Deep Pruitt APRN Primary Care Provider Reason for Visit * Reason Comments Other Encounter Details Date Type Department Care Team ([facility] Contact Info) Description 05/24/2022 Telephone [facility] [address] [place] [address] Deep Pruitt APRN [address] [place] [phone] Other Social History Tobacco Use Types [...] you attend chur ch or nondenominational services? More than 4 times per year [...] Date Recorded PHQ-2 Total Score 2 02/17/2022 [facility] - Occupational Stress Questionnaire Answer Date [...] your living situation today? I have a [facility] place to live 05/19/2022 Sex and [...] AM EST Patient best call back number [phone]. Patient has an upcoming appt with his [...] documented as of this encounter Care Teams Sheeter Waxer Operator Relationship Specialty Start Date End Date Deep Pruitt APRN PCP - General 05/22/19 documented as of this encounter
--- OUTSIDE RECORDS SUMMARY | 2024-09-23 12:11 | XMS_ITS | Encounter Summary ---
Author Organization [employer] Address [address] [facility] 7t [place] [address] Care Team Providers Care Electrical Engineering Manager Name Role Phone Katrin Santoyo MD Primary Care Pro vider Edison Vieira MD Unavailable [phone] Joe Devi MD Unavailable [phone] Reason for Visit * Reason Onset Date Comments Interopffice Coordination 09/19/2024 Encounter Details Date Type Department Care Team ([facility] st Contact Info) Description 09/19/2024 Results Follow-Up [facility] [address] [place] [address] Katrin Santoyo MD [address] [place] [address] POCT Glucose, POCT HGB A1C, Cortisol Random, Lipase Social History Tobacco Use Types Packs/Day Years [...] encounter Miscellaneous Notes * Telephone Encounter - Kassidy Ly RN - 09/20/2024 9:45 AM EDT Telephone call placed to [facility] Weight Christian ment (office of prescribing provider). Informed tirzepatide discontinued d/t elevated pancreatic enzymes and lipase. Telephone call placed to [facility] Endo. Informed tirzepatide discontinued which was Rxd by Weight Management. Notifying as he may have an increase in BG and they manage his DM. * Telephone Encounter - Kassidy Ly RN - 09/20/2024 9:19 AM EDT ----- Message from Katrin López MD sent at 09/19/2024 5:16 PM EDT ----- Please can you call this pt's bariatric surgeon who is prescribing Tirzepatide and let him know that GLP1 was stopped before because pt had elevated pancreatic enzymes ,now again lipase is elevated so I would rec med to be stop but to discuss w prescriber Also please can you inform his polysilicon preparation worker that bariatric surgeon started him on tirzepatide but again his lipase is elevated ,pt did not appear symptomatic but again med was stopped before for that , I would like them to discuss w pt about plan in management because if they stop injection glucose will get uncontrolled again Thanks ----- Message ----- From: Tamiko Bray MA Sent: 08/22/2024 1:10 PM EDT To: Katrin López MD * Result Encounter Note - Katrin López MD - 09/19/2024 5:16 PM EDT Please can you call this pt's bariatric surgeon who is prescribing Tirzepatide and let him know that GLP1 was stopped before because pt had elevated pancreatic enzymes ,now again lipase is elevated so I would rec med to be stop but to discuss w prescriber Also please can you inform his polysilicon preparation worker that bariatric surgeon started him on tirzepatide but again his lipase is elevated ,pt did not appear symptomatic but again med was stopped before for that , I would like them to discuss w pt about plan in management because if they stop injection glucose will get uncontrolled again Thanks documented in this encounter Plan of Treatment Upcoming Encounters Date Type Department Care Team (Late st Contact Info) Description 10/07/2024 1:00 PM EDT Clinical Support [address] [address] 11/01/2024 1:15 PM EDT Office Visit [address] [address] Katrin Santoyo MD [address] [place] [address] 11/12/2024 9:45 AM EDT Office Visit [address] [address] documented as of this encounter Goals Goal Patient Goal Type Associated Problems Recent Progress Patient-Stated? Author Blood Pressure < 140/90 Blood Pressure 134/78(2024 1:13 PM EDT) No Eve Guzman, Diane Hemoglobin A1c < 7 Result Component 10.2(08/23/19 1:13 PM EDT) No Piers-Eve Grier PharmD documented as of this encounter Visit Diagnoses Not on filedocumented in this encounter Additional Health Concerns Assessment Noted Time PHQ-9 Depression Total Score: 4 10/31/19 10:32 AM EDT documented as of this encounter Care Teams Electrical Engineering Manager Relationship Specialty Start Date End Date Katrin Santoyo MD [address] [place] [address] PCP - General Internal Medicine 12/13/22 Edison Vieira MD 5 [place] [address] Pulmonary Disease 04/07/24 Joe Devi MD 11 [facility] 3rd [place] [address] Gastroenterology 04/07/24 Carito Roche DNP [address] [facility], [address] [place] [address] Nephrology 04/07/24 [employer] 04/11/24 documented as of this encounter
--- OUTSIDE RECORDS SUMMARY | 2024-09-23 12:11 | XMS_ITS | Encounter Summary ---
Author Organization [facility] Address [address] [place] [phone] Care Team Providers Care Orthophotography Technician Name Role Phone Deep Pruitt APRN Primary Care Provider Reason for Visit * Reason Comments DME Encounter Details Date Type Department Care Team ([facility] st Contact Info) Description 05/04/2022 Documentation Sleep Medicine Program at [address] [place] [phone] Jarad De Leon MD [address] [place] [phone] Social History Tobacco Use Types Packs/Day [...] documented as of this encounter Care Teams Orthophotography Technician Relationship Specialty Start Date End Date Deep Pruitt APRN PCP - General 05/22/19 documented as of this encounter
--- OUTSIDE RECORDS SUMMARY | 2024-09-23 12:11 | XMS_ITS | Encounter Summary ---
Author Organization [employer] Address [address] [facility] 7t [place] [address] Care Team Providers Care Lead Technologist In Cytogenetics Name Role Phone Katrin Santoyo MD Primary Care Pro vider Edison Vieira MD Unavailable [phone] Joe Devi MD Unavailable [phone] Encounter Details Date Type Department Care Team (Late st Contact Info) Description 09/19/2024 Results Follow-Up [facility] [address] [place], [place] [phone] Katrin Santoyo MD [address] [place] [address] PTH, Intact Without Calcium Social History Tobacco Use Types Packs/Day Years [...] Miscellaneous Notes * Result Encounter Note - Katrin López [...] prescriber Also please can you inform his airborne operations that bariatric surgeon started him on tirzepatide [...] Description 10/07/2024 1:00 PM EDT Clinical Support [facility] [address] [place] [phone] 11/01/2024 1:15 PM EDT Office Visit [facility] [address] [place] [address] Katrin Santoyo MD [address] [place] [address] 11/12/2024 9:45 AM EDT Office Visit [facility] [address] [place] [address] documented as of this encounter Goals Goal [...] as of this encounter Care Teams Lead Technologist In Cytogenetics Relationship Specialty Start Date End Date Katrin Santoyo MD [address] [place] [address] PCP - General Internal Medicine 12/13/22 Edison Vieira MD [address] [place] [address] Pulmonary Disease 04/07/24 Joe Devi MD 11 [facility] 3rd [place] [address] Gastroenterology 04/07/24 Carito Roche DNP 10 [facility], [address] [place] [address] Nephrology 04/07/24 [employer] 04/11/24 documented as of this encounter
--- OUTSIDE RECORDS SUMMARY | 2024-09-23 12:11 | XMS_ITS | Encounter Summary ---
Author Organization [facility] Address [address] [place] [address] Care Team Providers Care Campus Administrator Name Role Phone Deep Pruitt APRN Primary Care Provider Reason for Visit * Reason Comments Medication Refill Encounter Details Date Type Department Care Team ([facility] st Contact Info) Description 07/29/2020 Refill [facility] [address] [place], [place] [phone] Deep Pruitt, JOHN [address] [place] [phone] Medication Refill Social History Tobacco Use [...] [facility] of Occupat ional [facility] - Occupational Stress Questionnaire Answer [...] documented as of this encounter Care Teams Campus Administrator Relationship Specialty Start Date End Date Deep Pruitt APRN PCP - General 05/22/19 documented as of this encounter
--- OUTSIDE RECORDS SUMMARY | 2024-09-23 12:11 | XMS_ITS | Encounter Summary ---
Author Organization [employer] Address [address] [facility] 7t [place] [address] Care Team Providers Care Center Medical Specialist Name Role Phone Katrin Santoyo MD Primary Care Pro vider Edison Vieira MD Unavailable [phone] Joe Devi MD Unavailable [phone] Encounter Details Date Type Department Care Team (Late st Contact Info) Description 09/19/2024 Orders Only GENERIC EXTERNAL DATA DEPARTMENT Provider, Generic External Data Social History Tobacco Use Types Packs/Day Years [...] Description 10/07/2024 1:00 PM EDT Clinical Support [address] [address] 11/01/2024 1:15 PM EDT Office Visit [address] [phone] Katrin Santoyo MD [address] [place] [address] 11/12/2024 9:45 AM EDT Office Visit [address] [address] documented as of this encounter Goals Goal Patient Goal Type Associated Problems Recent Progress Patient-Stated? Author Blood Pressure < 140/90 Blood Pressure 134/78(2024 1:13 PM EDT) No Eve Guzman, PharmD Hemoglobin A1c < 7 Result Component 10.2(08/23/19 1:13 PM EDT) No Eve Guzman PharmYarely documented as of this encounter Procedures Procedure Name Priority Date/Time Associated Diagnosis Comments VITAMIN D,25-OH,TOTAL,IA Routine 09/19/2024 2:44 PM EDT IRON AND TOTAL IRON BINDING CAPACITY Routine 09/19/2024 2:44 PM EDT PHOSPHATE ( PHOSPHORUS) Routine 09/19/2024 2:44 PM EDT PTH, INTACT WITHOUT CALCIUM Routine 09/19/2024 2:44 PM EDT FERRITIN Routine 09/19/2024 2:44 PM EDT documented in this encounter Results * (ABNORMAL) PTH, Intact Without Calcium (09/19/2024 2:44 PM EDT) Parathyroid Hormone, Intact 683.9(H) 8.7 - 77.1 pg/mL [facility] 09/19/2024 2:44 PM EDT 09/19/2024 4:10 PM EDT Generic External Data Provider LAB BLOOD ORDERAB LES Final Result Performing Organization Address [facility] Co de Phone Number [facility] [address] [place] [phone] * (ABNORMAL) Iron And Total Iron Binding Capacity (09/19/2024 2:44 PM EDT) Iron 56 45 - 160 mcg/dL [facility] Total Iron Binding Capacity 192(L) 228 - 428 mcg/dL [facility] Percent Iron Saturation 29 15 - 50 % [facility] Unsaturated Iron Binding 136 ug/dL [facility] 09/19/2024 2:44 PM EDT 09/19/2024 4:10 PM EDT Generic External Data Provider LAB BLOOD ORDERAB LES Final Result Performing Organization Address City/[facility]/ZIP Co de Phone Number [facility] [address] [place] [phone] * Phosphate (As Phosphorus) (09/19/2024 2:44 PM EDT) Phosphorus 3.5 2.7 - 4.5 mg/dL [facility] 09/19/2024 2:44 PM EDT 09/19/2024 4:10 PM EDT us Generic External Data Provider LAB BLOOD ORDERAB LES Final Result [facility] [address] [place] [phone] * (ABNORMAL) Vitamin D, 25-Hydroxy, Total, Immunoassay (09/19/2024 2:44 PM EDT) Vitamin D 25-OH Total 12.7(L) >30 ng/mL [facility] Comment: Health Based Reference Values*< 20 ??ng/mL ??Tjjqbwfhv65-18 ng/mL ??Insufficient> 30 ??ng/mL ??Sufficient*Juan LEWIS. N Engl J Med. 2007;357:266-280There is no well-established upper level of normal vitamin Dlevels. Some laboratories use 50 ng/mL as an upper limit ofnormal. However, toxicity is patient-dependent and may occurat any level. Careful correlation with the patient'spresentation is necessary and, if there is concern forvitamin D toxicity, treatment should be consideredirrespective of the serum level.Care must be taken in interpreting Vitamin D results fromdifferent laboratories and methodologies. ??Published datademonstrated that results from patients undergoinghemodialysis may show a negative bias when tested withvarious automated 25-OH vitamin D assays when compared toLC- MS/MS.When testing samples from patients whose predominant form ofVitamin D is Vitamin D2, such as patients receiving VitaminD2 supplementation, results that are subtherapeutic shouldbe confirmed with another method such as LC-MS/MS. 09/19/2024 2:44 PM EDT 09/19/2024 4:10 PM EDT us Generic External Data Provider LAB BLOOD ORDERAB LES Final Result Performing Organization Address City/[facility]/ZIP Co de Phone Number [facility] [address] [place] [phone] * Ferritin (09/19/2024 2:44 PM EDT) Ferritin 32 20 - 250 ng/mL [facility] 09/19/2024 2:44 PM EDT 09/19/2024 4:10 PM EDT us Generic External Data Provider LAB BLOOD ORDERAB LES Final Result [facility] [address] [place] [phone] documented in this encounter Visit Diagnoses Not on filedocumented in this encounter Additional Health Concerns Assessment Noted Time PHQ-9 Depression Total Score: 4 10/31/19 10:32 AM EDT documented as of this encounter Care Teams Center Medical Specialist Relationship Specialty Start Date End Date Katrin Santoyo MD [address] [place] [address] PCP - General Internal Medicine 12/13/22 Edison Vieira MD [address] [place] [address] Pulmonary Disease 04/07/24 Joe Devi MD [address] [facility] 3rd [place] [address] Gastroenterology 04/07/24 Carito Roche DNP [address] [facility], [address] [place] [address] Nephrology 04/07/24 Linguastat 04/11/24 documented as of this encounter
--- OUTSIDE RECORDS SUMMARY | 2024-09-23 12:11 | XMS_ITS | Encounter Summary ---
Author Organization [facility] Address [address] [place] [phone] Care Team Providers Care Skating Rink Manager Name Role Phone Deep Pruitt JOHN Primary Care Provider Reason for Visit * Reason Comments Medication Refill Encounter Details Date Type Department Care Team (Late st Contact Info) Description 07/20/2020 Refill [facility] at [address] [place] [address] [phone] Arben Fountain, NOLVIA [address] [place] [address] Medication Refill Social History Tobacco [...] Answer Date Recorded PHQ-2 Score 2 07/07/2020 [facility] ional Health [...] documented as of this encounter Care Teams Skating Rink Manager Relationship Specialty Start Date End Date Deep Pruitt APRN PCP - General 05/22/19 documented as of this encounter
--- OUTSIDE RECORDS SUMMARY | 2024-09-23 12:11 | XMS_ITS | Encounter Summary ---
Author Organization [facility] Address [address] [place] [address] Care Team Providers Care Side Puller Name Role Phone Deep Pruitt APRN Primary Care Provider Reason for Visit * Reason Comments Medication Refill Encounter Details Date Type Department Care Team ([facility] st Contact Info) Description 07/10/2020 Refill [facility] [address] [place] [address] Deep Pruitt APRN [address] [place] [phone] Medication Refill Social History Tobacco Use [...] 07/07/2020 [facility] Occupat ional [facility] - Occupational Stress Questionnaire Answer Date Recorded [...] documented as of this encounter Care Teams Side Puller Relationship Specialty Start Date End Date Deep Pruitt APRN PCP - General 05/22/19 documented as of this encounter
--- OUTSIDE RECORDS SUMMARY | 2024-09-23 12:12 | XMS_ITS | Encounter Summary ---
Author Organization [employer] Address [address] [facility] 7t [place] [address] Care Team Providers Care Still Operator Whiskey Name Role Phone Katrin Santoyo MD Primary Care Pro vider Edison Vieira MD Unavailable [phone] Joe Devi MD Unavailable [phone] Reason for Visit * Reason Onset Date Comments Durable Medical Equipment 11/08/2023 Encounter Details Date Type Department Care Team (Late st Contact Info) Description 11/08/2023 Telephone [facility] [address] [place], [place] [phone] Katrin Santoyo MD [address] [place], [place] [phone] Durable Medical Equipment Social History Tobacco Use [...] 11/10/2023 11:01 AM EDT Call placed to [facility] spoke to Zhen who was informed on 10/31/23 we faxed over RX with the qty on it. He reports that what they need is the letter of medical necessity not the Rx. He reports he will fax it to blue team at [phone] and once signed and faxed back it will be all set. Awaiting do cument. * Telephone Encounter - Mauricio Taylor - 11/08/2023 3:57 PM EDT Tc from Tanya at [facility] line calling to report the DME is missing the quantity and the description please sign and refax documented in this encounter Plan of Treatment Upcoming Encounters Date Type Department Care Team (Late st Contact Info) Description 10/07/2024 1:00 PM EDT Clinical Support [address] [address] 11/01/2024 1:15 PM EDT Office Visit [address] [address] Katrin Santoyo MD [address] [place] [address] 11/12/2024 9:45 AM EDT Office Visit [facility] [address] [place] [address] documented as of this encounter Goals Goal [...] documented as of this encounter Care Teams Still Operator Whiskey Relationship Specialty Start Date End Date Katrin Santoyo MD [address] [place] [address] PCP - General Internal Medicine 12/13/22 Edison Vieira MD [address] [place] [address] Pulmonary Disease 04/07/24 Joe Devi MD [address] [facility] 3rd [place] [address] Gastroenterology 04/07/24 Carito Roche DNP [address] [facility], [address] [place] [address] Nephrology 04/07/24 Condition One 04/11/24 documented as of this encounter
--- OUTSIDE RECORDS SUMMARY | 2024-09-23 12:12 | XMS_ITS | Encounter Summary ---
Author Organization [facility] Address [address] [place] [address] Care Team Providers Care Services Host Name Role Phone Deep Pruitt APRN Primary Care Provider Reason for Visit * Reason Comments Medication Refill Encounter Details Date Type Department Care Team ([facility] st Contact Info) Description 06/19/2020 Refill [facility] [address] [place] [address] Deep Pruitt APRN [address] [place] [phone] Medication Refill Social History Tobacco Use [...] Answer Date Recorded PHQ-2 Score 0 03/13/2020 [facility] of Occupat ional Health [...] documented as of this encounter Care Teams Services Host Relationship Specialty Start Date End Date Deep Pruitt APRN PCP - General 05/22/19 documented as of this encounter
--- OUTSIDE RECORDS SUMMARY | 2024-09-23 12:12 | XMS_ITS | Encounter Summary ---
Author Organization [facility] Address [address] [place] [address] Care Team Providers Care Garbage Worker Name Role Phone Deep Pruitt APRN Primary Care Provider Encounter Details Date Type Department Care Team ([facility] st Contact Info) Description 06/13/2020 Scanned Document [facility] [address] [place], [place] [phone] Deep Pruitt APRN [address] [place] [address] Social History Tobacco Use Types [...] Answer Date Recorded PHQ-2 Score 0 03/13/2020 [facility] of Occupat ional Health - Occupational Stress [...] documented as of this encounter Care Teams Garbage Worker Relationship Specialty Start Date End Date Deep Pruitt APRN PCP - General 05/22/19 documented as of this encounter
--- OUTSIDE RECORDS SUMMARY | 2024-09-23 12:12 | XMS_ITS | Encounter Summary ---
Author Organization [facility] Address [address] [place] [address] Care Team Providers Care Certified Credit Counselor Name Role Phone Deep Pruitt APRN Primary Care Provider Reason for Visit * Reason Comments Medication Refill Encounter Details Date Type Department Care Team ([facility] st Contact Info) Description 06/30/2021 Refill [facility] [address] [place], [place] [phone] Deep Pruitt APRN [address] [place] [address] Medication Refill Social History Tobacco [...] Date Recorded PHQ-2 Total Score 3 05/31/2021 [facility] Occupat ional Health - [...] as of this encounter Care Teams Certified Credit Counselor Relationship Specialty Start Date End Date Deep Pruitt APRN PCP - General 05/22/19 documented as of this encounter
--- OUTSIDE RECORDS SUMMARY | 2024-09-23 12:12 | XMS_ITS | Encounter Summary ---
Author Organization [facility] Address [address] [place] [address] Care Team Providers Care Tandem Mill Roller Name Role Phone Deep Pruitt APRN Primary Care Provider Reason for Visit * Reason Comments Forms Encounter Details Date Type Department Care Team ([facility] Contact Info) Description 06/16/2020 Telephone [facility] [address] [place] [address] Deep Pruitt APRN [address] [place] [phone] Forms Social History Tobacco Use Types [...] Answer Date Recorded PHQ-2 Score 0 03/13/2020 [facility] of Occupat ional [...] update on handicap forms for pt. Call [phone] documented in this encounter Plan of Treatment [...] documented as of this encounter Care Teams Tandem Mill Roller Relationship Specialty Start Date End Date Deep Pruitt APRN PCP - General 05/22/19 documented as of this encounter
--- OUTSIDE RECORDS SUMMARY | 2024-09-23 12:12 | XMS_ITS | Encounter Summary ---
Author Organization [facility] Address [address] [place] [address] Care Team Providers Care Injection Molding Operator Name Role Phone Deep Pruitt APRN Primary Care Provider Encounter Details Date Type Department Care Team ([facility] st Contact Info) Description 06/25/2021 Telephone [facility] [address] [place] [address] Deep Pruitt APRN [address] [place] [address] Social History Tobacco Use Types [...] Date Recorded PHQ-2 Total Score 3 05/31/2021 [facility] of Occupat ional Health [...] documented as of this encounter Care Teams Injection Molding Operator Relationship Specialty Start Date End Date Deep Pruitt APRN PCP - General 05/22/19 documented as of this encounter
--- OUTSIDE RECORDS SUMMARY | 2024-09-23 12:12 | XMS_ITS | Encounter Summary ---
Author Organization [facility] Address [address] [place] [phone] Care Team Providers Care Home Theater Experience Expert Name Role Phone Deep Pruitt APRN Primary Care Provider Encounter Details Date Type Department Care Team (Late st Contact Info) Description 06/11/2021 Documentation [facility] [address] [facility], 2nd floor [facility], [address] [place], [place] [phone] Isha Brown APRN [address] [place] [address] Social History Tobacco Use Types [...] Recorded PHQ-2 Total Score 3 05/31/2021 [facility] of Occupat ional Health [...] as of this encounter Care Teams Home Theater Experience Expert Relationship Specialty Start Date End Date Deep Pruitt APRN PCP - General 05/22/19 documented as of this encounter
--- OUTSIDE RECORDS SUMMARY | 2024-09-23 12:12 | XMS_ITS | Encounter Summary ---
Author Organization [facility] Address [address] [place] [address] Care Team Providers Care Tab Cutting Machine Operator Name Role Phone Deep Pruitt APRN Primary Care Provider Reason for Visit * Reason Comments Medication Refill Encounter Details Date Type Department Care Team (Late st Contact Info) Description 06/19/2020 Refill [facility] [address] [place], [place] [phone] Janel Cummins APRN [address] [place] [phone] Medication Refill Social History Tobacco Use Types [...] Answer Date Recorded PHQ-2 Score 0 03/13/2020 [facility] of Occupat ional Health [...] documented as of this encounter Care Teams Tab Cutting Machine Operator Relationship Specialty Start Date End Date Deep Pruitt APRN PCP - General 05/22/19 documented as of this encounter
--- OUTSIDE RECORDS SUMMARY | 2024-09-23 12:12 | XMS_ITS | Encounter Summary ---
Author Organization [facility] Address [address] [place] [address] Care Team Providers Care Pressing Machine Tender Name Role Phone Deep Pruitt APRN Primary Care Provider Reason for Visit * Reason Comments Medication Refill Encounter Details Date Type Department Care Team ([facility] st Contact Info) Description 06/19/2020 Refill [facility] [address] [place] [address] Deep Pruitt APRN [address] [place] [phone] Medication Refill Social History Tobacco Use [...] Date Recorded PHQ-2 Score 0 03/13/2020 [facility] of Occupat ional [...] documented as of this encounter Care Teams Pressing Machine Tender Relationship Specialty Start Date End Date Deep Pruitt APRN PCP - General 05/22/19 documented as of this encounter
--- OUTSIDE RECORDS SUMMARY | 2024-09-23 12:12 | XMS_ITS | Encounter Summary ---
Author Organization [facility] Address [address] [place] [address] Care Team Providers Care Chemical Etch Operator Name Role Phone Sonal Deep Niko LOPEZ Primary Care Provider Reason for Visit * Reason Comments Medication Refill Encounter Details Date Type Department Care Team (Late st Contact Info) Description 07/03/2020 Refill [facility] Nutrition at [address] [address] Zena Hines PA [address] [place] [phone] Medication Refill Social History Tobacco Use [...] Answer Date Recorded PHQ-2 Score 2 07/07/2020 [facility] Occupat ional Health - [...] for Metformin received. Pt was engaging with [facility] and continues with PCP. Unclear [...] documented as of this encounter Care Teams Chemical Etch Operator Relationship Specialty Start Date End Date Deep Pruitt APRN PCP - General 05/22/19 documented as of this encounter
--- OUTSIDE RECORDS SUMMARY | 2024-09-23 12:13 | XMS_ITS | Encounter Summary ---
Author Organization [facility] Address [address] [place] [address] Care Team Providers Care Financial Foundations Representative Name Role Phone Deep Pruitt JOHN Primary Care Provider Reason for Visit * Reason Comments Medication Refill Encounter Details Date Type Department Care Team (Late st Contact Info) Description 05/12/2021 Refill [facility] Podiatry at [address] [place] [phone] Arben Fountain, NOLVIA [address] [place] [address] Medication Refill Social History Tobacco [...] Date Recorded PHQ-2 Total Score 0 04/21/2021 [facility]ational Stress Questionnaire Answer [...] as of this encounter Care Teams Financial Foundations Representative Relationship Specialty Start Date End Date Deep Pruitt APRN PCP - General 05/22/19 documented as of this encounter
--- OUTSIDE RECORDS SUMMARY | 2024-09-23 12:13 | XMS_ITS | Encounter Summary ---
Author Organization [facility] Address [address] [place] [address] Care Team Providers Care Meteorological Equipment Repairer Name Role Phone Sonal Deep Niko LOPEZ Primary Care Provider [phone] Reason for Visit * Reason Comments Medication Refill Encounter Details Date Type Department Care Team ([facility] st Contact Info) Description 05/10/2021 Refill [facility] [address] [place] [phone] Aliya Pond, [address] [address] Medication Refill Social History Tobacco [...] Score 0 04/21/2021 [facility] - Occupational Stress Questionnaire [...] documented as of this encounter Care Teams Meteorological Equipment Repairer Relationship Specialty Start Date End Date Deep Pruitt APRN PCP - General 05/22/19 documented as of this encounter
--- OUTSIDE RECORDS SUMMARY | 2024-09-23 12:14 | XMS_ITS | Encounter Summary ---
Author Organization [facility] Address [address] [place] [address] Care Team Providers Care Behavioral Health Specialist Name Role Phone Sonal Deep Niko LOPEZ Primary Care Provider [phone] Reason for Visit * Reason Comments Medication Refill Encounter Details Date Type Department Care Team ([facility] st Contact Info) Description 05/03/2021 Refill [facility] [address] [place] [phone] Aliya Pond, [address] [phone] Medication Refill Social History Tobacco [...] Date Recorded PHQ-2 Total Score 0 04/21/2021 [facility] - Occupational Stress Questionnaire [...] as of this encounter Care Teams Behavioral Health Specialist Relationship Specialty Start Date End Date Deep Pruitt APRN PCP - General 05/22/19 documented as of this encounter
--- OUTSIDE RECORDS SUMMARY | 2024-09-23 12:14 | XMS_ITS | Encounter Summary ---
Author Organization [facility] Address [address] [place] [address] Care Team Providers Care Platen Press Feeder Name Role Phone Sonal Deep Niko LOPEZ Primary Care Provider [phone] Reason for Visit * Reason Comments Medication Refill Encounter Details Date Type Department Care Team ([facility] st Contact Info) Description 04/12/2021 Refill [facility] [address] [place] [phone] Aliya Pond, [address] [address] Medication Refill Social History Tobacco [...] Date Recorded PHQ-2 Total Score 1 03/24/2021 [facility] [...] documented as of this encounter Care Teams Platen Press Feeder Relationship Specialty Start Date End Date Deep Pruitt APRN PCP - General 05/22/19 documented as of this encounter
--- OUTSIDE RECORDS SUMMARY | 2024-09-23 12:14 | XMS_ITS | Encounter Summary ---
Author Organization [facility] Address [address] [place] [address] Care Team Providers Care Mental Health Director Name Role Phone Deep Pruitt APRN Primary Care Provider Reason for Visit * Reason Comments Medication Refill Encounter Details Date Type Department Care Team ([facility] st Contact Info) Description 05/27/2020 Telephone [facility] [address] [place] [address] Deep Pruitt APRN [address] [place] [address] Medication Refill Social History Tobacco [...] PHQ-2 Score 0 03/13/2020 [facility] of Occupat [...] medications and request someone calls him at [phone] documented in this encounter Plan of Treatment [...] documented as of this encounter Care Teams Mental Health Director Relationship Specialty Start Date End Date Deep Pruitt APRN PCP - General 05/22/19 documented as of this encounter
--- OUTSIDE RECORDS SUMMARY | 2024-09-23 12:14 | XMS_ITS | Encounter Summary ---
Author Organization [facility] Address [address] [place] [address] Care Team Providers Care Senior Grant Writer Name Role Phone Deep Pruitt APRN Primary Care Provider Reason for Visit * Reason Comments Medication Refill Encounter Details Date Type Department Care Team ([facility] st Contact Info) Description 05/18/2020 Refill [facility] [address] [place] [address] eDep Pruitt APRN [address] [place] [phone] Medication Refill Social History Tobacco Use [...] as of this encounter Care Teams Senior Grant Writer Relationship Specialty Start Date End Date Deep Pruitt APRN PCP - General 05/22/19 documented as of this encounter
--- OUTSIDE RECORDS SUMMARY | 2024-09-23 12:14 | XMS_ITS | Encounter Summary ---
Author Organization [facility] Address [address] [place] [address] Care Team Providers Care Entry Specialist Name Role Phone Deep Pruitt APRN Primary Care Provider Reason for Visit * Reason Comments Medication Refill Encounter Details Date Type Department Care Team ([facility] st Contact Info) Description 05/13/2020 Refill [facility] Best Learning English [address] [place], [place] [address] Deep Pruitt APRN [address] [place] [address] Medication Refill Social History Tobacco [...] Answer Date Recorded PHQ-2 Score 0 03/13/2020 [facility] of Occupat ional Health - Occupational Stress [...] as of this encounter Care Teams Entry Specialist Relationship Specialty Start Date End Date Deep Pruitt APRN PCP - General 05/22/19 documented as of this encounter
--- OUTSIDE RECORDS SUMMARY | 2024-09-23 12:14 | XMS_ITS | Encounter Summary ---
Author Organization [facility] [employer] [facility] Address [address] [place] [phone] Care Team Providers Care Shank Faker Name Role Phone Deep Pruitt APRN Primary Care Provider Reason for Visit * Reason Comments DME Encounter Details Date Type Department Care Team (Late st Contact Info) Description 04/11/2022 Documentation Sleep Medicine Program at [address] [place] [address] Jarad De Leon MD [address] [place] [phone] Social History Tobacco Use Types Packs/Day [...] Date Recorded PHQ-2 Total Score 2 02/17/2022 [facility] of Occupat ional Health [...] as of this encounter Care Teams Shank Faker Relationship Specialty Start Date End Date Deep Pruitt APRN PCP - General 05/22/19 documented as of this encounter
--- OUTSIDE RECORDS SUMMARY | 2024-09-23 12:14 | XMS_ITS | Encounter Summary ---
Author Organization [facility] Address [address] [place] [address] Care Team Providers Care Wind Farm Electrical Systems Designer Name Role Phone Deep Pruitt APRN Primary Care Provider +1-2 [phone] Reason for Visit * Reason Comments Other Encounter Details Date Type Department Care Team ([facility] Contact Info) Description 05/19/2020 Telephone [facility] [address] [place] [address] Deep Pruitt APRN [address] [place] [address] Other Social History Tobacco Use [...] to his gout, call back number is [phone] documented in this encounter Plan of Treatment [...] as of this encounter Care Teams Wind Farm Electrical Systems Designer Relationship Specialty Start Date End Date Deep Pruitt APRN PCP - General 05/22/19 documented as of this encounter
--- OUTSIDE RECORDS SUMMARY | 2024-09-23 12:14 | XMS_ITS | Encounter Summary ---
Author Organization [facility] Address [address] [place] [address] Care Team Providers Care Mud Worker Name Role Phone Deep Pruitt Niko LOPEZ Primary Care Provider Reason for Visit * Reason Comments Medication Refill Encounter Details Date Type Department Care Team (Late st Contact Info) Description 05/06/[address] [phone] Arben Fountain, NOLVIA [address] [place] [address] Medication Refill Social History Tobacco [...] documented as of this encounter Care Teams Mud Worker Relationship Specialty Start Date End Date Deep Pruitt APRN PCP - General 05/22/19 documented as of this encounter
--- OUTSIDE RECORDS SUMMARY | 2024-09-23 12:14 | XMS_ITS | Encounter Summary ---
Author Organization [facility] Address [address] [place] [address] Care Team Providers Care Global Mobility Specialist Name Role Phone Sonal Deep Niko LOPEZ Primary Care Provider +1- [phone] Reason for Visit * Reason Comments Medication Refill Encounter Details Date Type Department Care Team ([facility] st Contact Info) Description 04/07/2021 Refill [facility] [address] [place] [phone] Aliya Pond, [address] [address] Medication Refill Social History Tobacco [...] Score 1 03/24/2021 [facility] [...] documented as of this encounter Care Teams Global Mobility Specialist Relationship Specialty Start Date End Date Deep Pruitt APRN PCP - General 05/22/19 documented as of this encounter
--- OUTSIDE RECORDS SUMMARY | 2024-09-23 12:14 | XMS_ITS | Encounter Summary ---
Author Organization [facility] Address [address] [place] [address] Care Team Providers Care Spring Clipper Name Role Phone Sonal Deep Niko LOPEZ Primary Care Provider +1-2 [phone] Reason for Visit * Reason Comments Medication Refill Encounter Details Date Type Department Care Team (Late st Contact Info) Description 05/12/2020 Refill [facility] Nutrition at [address] [address] Zena Hines PA [address] [place] [address] Medication Refill Social History Tobacco [...] Pike Please review pt no longer seeing [facility] Wellness Dept for DM management. Katrin [...] documented as of this encounter Care Teams Spring Clipper Relationship Specialty Start Date End Date Deep Pruitt APRN PCP - General 05/22/19 documented as of this encounter
--- OUTSIDE RECORDS SUMMARY | 2024-09-23 12:14 | XMS_ITS | Encounter Summary ---
Author Organization [facility] Address [address] [place] [address] Care Team Providers Care Executive Administrative Asst Name Role Phone Deep Pruitt APRN Primary Care Provider Reason for Visit * Reason Comments Medication Refill Encounter Details Date Type Department Care Team ([facility] st Contact Info) Description 03/19/2022 Refill [facility] [address] [place], [place] [phone] Deep Pruitt, JOHN [address] [place] [address] Medication Refill Social History Tobacco [...] Date Recorded PHQ-2 Total Score 2 02/17/2022 [facility] of Occupat ional Health - Occupational [...] as of this encounter Care Teams Executive Administrative Asst Relationship Specialty Start Date End Date Deep Pruitt APRN PCP - General 05/22/19 documented as of this encounter
--- OUTSIDE RECORDS SUMMARY | 2024-09-23 12:14 | XMS_ITS | Encounter Summary ---
Author Organization [facility] Address [address] [place] [address] Care Team Providers Care Retort Engineer Name Role Phone Sonal Deep Niko LOPEZ Primary Care Provider +1- [phone] Reason for Visit * Reason Comments Medication Refill Encounter Details Date Type Department Care Team ([facility] st Contact Info) Description 05/05/2021 Refill [facility] [address] [place] [phone] Aliya Pond, [address] [address] Medication Refill Social History Tobacco [...] Recorded PHQ-2 Total Score 0 04/21/2021 [facility] - Occupational Stress Questionnaire [...] documented as of this encounter Care Teams Retort Engineer Relationship Specialty Start Date End Date Deep Pruitt APRN PCP - General 05/22/19 documented as of this encounter
--- OUTSIDE RECORDS SUMMARY | 2024-09-23 12:15 | XMS_ITS | Encounter Summary ---
Author Organization [facility] Address [address] [place] [address] Care Team Providers Care Personnel Specialist Name Role Phone Deep Pruitt APRN Primary Care Provider Reason for Visit * Reason Comments Medication Refill Encounter Details Date Type Department Care Team ([facility] st Contact Info) Description 12/18/2021 Refill [facility] [address] [place], [place] [phone] Deep Pruitt APRN [address] [place] [address] Medication Refill Social History Tobacco [...] Date Recorded PHQ-2 Total Score 4 12/20/2021 [facility] of Occupat [...] as of this encounter Care Teams Personnel Specialist Relationship Specialty Start Date End Date Deep Pruitt APRN PCP - General 05/22/19 documented as of this encounter
--- OUTSIDE RECORDS SUMMARY | 2024-09-23 12:15 | XMS_ITS | Encounter Summary ---
Author Organization [facility] Address [address] [place] [address] Care Team Providers Care Correspondence Review Clerk Name Role Phone Romelia Pruittian Niko LOPEZ Primary Care Provider Reason for Visit * Reason Onset Date Comments Medication Refill 11/19/2021 Encounter Details Date Type Department Care Team (Late st Contact Info) Description 11/19/2021 Refill [facility] [address] [place] [phone] Carlos Eduardo Joyner MD [address] [place] [phone] Medication Refill Social History Tobacco Use [...] Date Recorded PHQ-2 Total Score 0 11/17/2021 [facility] - Occupational Stress Questionnaire Answer Date [...] documented as of this encounter Care Teams Correspondence Review Clerk Relationship Specialty Start Date End Date Deep Pruitt APRN PCP - General 05/22/19 documented as of this encounter
--- OUTSIDE RECORDS SUMMARY | 2024-09-23 12:15 | XMS_ITS | Encounter Summary ---
Author Organization [facility] Address [address] [place] [address] Care Team Providers Care Swimming Pool Cleaner Name Role Phone Deep Pruitt APRN Primary Care Provider Reason for Visit * Reason Comments Medication Refill Encounter Details Date Type Department Care Team ([facility] st Contact Info) Description 12/15/2021 Refill [facility] [address] [place], [place] [phone] Deep Pruitt APRN [address] [place] [address] Medication Refill Social History Tobacco [...] documented as of this encounter Care Teams Swimming Pool Cleaner Relationship Specialty Start Date End Date Deep Pruitt APRN PCP - General 05/22/19 documented as of this encounter
--- OUTSIDE RECORDS SUMMARY | 2024-09-23 12:15 | XMS_ITS | Encounter Summary ---
Author Organization [facility] Address [address] [place] [address] Care Team Providers Care Anesthesia Associate Name Role Phone Romelia Pruittian Niko LOPEZ Primary Care Provider Encounter Details Date Type Department Care Team (Late st Contact Info) Description 11/30/2021 Scanned Document [facility] [address] [place] [address] External, Provider Social History Tobacco Use Types [...] Date Recorded PHQ-2 Total Score 0 11/17/2021 [facility] of Occupat ional Health - [...] documented as of this encounter Care Teams Anesthesia Associate Relationship Specialty Start Date End Date Deep Pruitt APRN PCP - General 05/22/19 documented as of this encounter
--- OUTSIDE RECORDS SUMMARY | 2024-09-23 12:15 | XMS_ITS | Encounter Summary ---
Author Organization [facility] Address [address] [place] [address] Care Team Providers Care Gear Repairer Name Role Phone Romelia Pruittian Niko LOPEZ Primary Care Provider Reason for Visit * Reason Onset Date Comments Medication Refill 11/10/2021 Encounter Details Date Type Department Care Team (Late st Contact Info) Description 11/10/2021 Refill [facility] Nutrition at [address] [facility] [address] [place] [phone] Anahi Rossi, JOHN [address] [place] [phone] Medication Refill Social History Tobacco Use [...] as of this encounter Care Teams Gear Repairer Relationship Specialty Start Date End Date Deep Pruitt APRN PCP - General 05/22/19 documented as of this encounter
--- OUTSIDE RECORDS SUMMARY | 2024-09-23 12:15 | XMS_ITS | Encounter Summary ---
Author Organization [facility] Address [address] [place] [address] Care Team Providers Care Preflight Inspector Name Role Phone Sonal Deep Niko LOPEZ Primary Care Provider [phone] [phone] Reason for Visit * Reason Comments Medication Refill Encounter Details Date Type Department Care Team (Late st Contact Info) Description 04/07/2021 Refill [facility] Nutrition at [address] [address] Zena Hines PA [address] [place] [phone] Medication Refill Social History Tobacco Use [...] often do you attend chur ch or mormon services? Never 01/03/2020 Do you belong to [...] seeing Zena Hines for DM management at [facility]. Thanks, Katrin documented in this encounter [...] documented as of this encounter Care Teams Preflight Inspector Relationship Specialty Start Date End Date Deep Pruitt APRN PCP - General 05/22/19 documented as of this encounter
--- OUTSIDE RECORDS SUMMARY | 2024-09-23 12:15 | XMS_ITS | Encounter Summary ---
Author Organization [facility] Address [address] [place] [address] Care Team Providers Care Computer Clerk Name Role Phone Deep Pruitt APRN Primary Care Provider Reason for Visit * Reason Comments Medication Problem Encounter Details Date Type Department Care Team ([facility] st Contact Info) Description 12/21/2021 Refill [facility] [address] [place] [address] Deep Pruitt APRN [address] [place] [address] Medication Problem Social History [...] Date Recorded PHQ-2 Total Score 4 12/20/2021 [facility] of Occupat ional [...] updated information the water pill. Call back [phone] * Telephone Encounter - Sarah Newman - 12/21/2021 1:05 PM EDT Best contact: [phone] Patient Sissy called and stated that she contacted [facility] on and they informed that the [...] as of this encounter Care Teams Computer Clerk Relationship Specialty Start Date End Date Deep Pruitt APRN PCP - General 05/22/19 documented as of this encounter
--- OUTSIDE RECORDS SUMMARY | 2024-09-23 12:15 | XMS_ITS | Encounter Summary ---
Author Organization [facility] Address [address] [place] [address] Care Team Providers Care Product/Device Technologist Name Role Phone Deep Pruitt APRN Primary Care Provider Reason for Visit * Reason Comments Medication Refill Encounter Details Date Type Department Care Team ([facility] st Contact Info) Description 11/17/2021 Refill [facility] [address] [place], [place] [phone] Deep Pruitt APRN [address] [place] [address] Medication Refill Social History Tobacco [...] Recorded PHQ-2 Total Score 0 11/17/2021 [facility] of Occupat ional Health [...] documented as of this encounter Care Teams Product/Device Technologist Relationship Specialty Start Date End Date Deep Pruitt APRN PCP - General 05/22/19 documented as of this encounter
--- OUTSIDE RECORDS SUMMARY | 2024-09-23 12:15 | XMS_ITS | Encounter Summary ---
Author Organization [facility] Address [address] [place] [address] Care Team Providers Care Training Generalist Name Role Phone Deep Pruitt APRN Primary Care Provider Reason for Visit * Reason Comments Advice Only Other Encounter Details Date Type Department Care Team ([facility] Contact Info) Description 12/02/2021 Telephone [facility] [address] [place] [address] Deep Pruitt APRN [address] [place] [address] Advice Only; Other Social History [...] Date Recorded PHQ-2 Total Score 0 11/17/2021 [facility] of Occupat ional Health [...] Mira Rios - 12/02/2021 1:32 PM EDT [facility] - [address] calling in regards to med refill request for Carvedilol 25 mg and Gabapentin medications. Call back [phone] * Telephone Encounter - Leah Madera LPN - 12/02/2021 1:21 PM EDT Patient at * Telephone Encounter - Usha Kline - 12/02/2021 12:18 PM EDT Pt is having a lot of stomach pain on the left side and would like to speak with PCP or nurse. Requesting a call back. [facility] callback number [phone] Tongan speaking documented in this encounter Plan of [...] documented as of this encounter Care Teams Training Generalist Relationship Specialty Start Date End Date Deep Pruitt APRN PCP - General 05/22/19 documented as of this encounter
--- OUTSIDE RECORDS SUMMARY | 2024-09-23 12:15 | XMS_ITS | Encounter Summary ---
Author Organization [facility] Address [address] [place] [address] Care Team Providers Care Packing House Laborer Name Role Phone Deep Pruitt APRN Primary Care Provider Reason for Visit * Reason Comments Medication Refill Encounter Details Date Type Department Care Team ([facility] st Contact Info) Description 03/10/2021 Refill [facility] [address] [place] [address] Deep Pruitt APRN [address] [place] [phone] Medication Refill Social History Tobacco Use [...] Date Recorded PHQ-2 Total Score 2 03/10/2021 [facility] of Occupat ional [...] as of this encounter Care Teams Packing House Laborer Relationship Specialty Start Date End Date Deep Pruitt APRN PCP - General 05/22/19 documented as of this encounter
--- OUTSIDE RECORDS SUMMARY | 2024-09-23 12:15 | XMS_ITS | Encounter Summary ---
Author Organization [facility] Address [address] [place] [address] Care Team Providers Care Marketing Proposal Coordinator Name Role Phone Deep Pruitt APRN Primary Care Provider Reason for Visit * Reason Comments Medication Refill Encounter Details Date Type Department Care Team ([facility] st Contact Info) Description 03/20/2021 Refill [facility] [address] [place] [address] Deep Pruitt APRN [address] [place] [address] Medication Refill Social History Tobacco Use [...] Date Recorded PHQ-2 Total Score 1 03/24/2021 [facility] of Occupat ional Health [...] as of this encounter Care Teams Marketing Proposal Coordinator Relationship Specialty Start Date End Date Deep Pruitt APRN PCP - General 05/22/19 documented as of this encounter
--- OUTSIDE RECORDS SUMMARY | 2024-09-23 12:15 | XMS_ITS | Encounter Summary ---
Author Organization [facility] Address [address] [place] [address] Care Team Providers Care Production Control Clerk Name Role Phone Deep Pruitt APRN Primary Care Provider Encounter Details Date Type Department Care Team (Late st Contact Info) Description 04/08/2021 Lab Requisition [facility] [address] [place] [address] Isha Brown APRN [address] [place] [address] Persons encountering health services in [...] Date Recorded PHQ-2 Total Score 1 03/24/2021 [facility] [...] Date/Time Associated Diagnosis Comments BLOOD GAS, ARTERIAL ([facility]) Routine 04/08/2021 12:44 PM EST documented in this encounter Results * (ABNORMAL) Blood gas, arterial () (04/08/2021 12:44 PM EST) pH Arterial 7.37 7.35 - 7.45 units 04/08/2021 12:[address] [facility] DEPARTMENT OF LABORATORY MEDICINE pCO2, Arterial 49(H) 32 - 48 mmHg 04/08/20 21 12:[address] [facility] DEPARTMENT OF LABORATORY MEDICINE pO2, Arterial 65(L) 83 - 108 mmHg 04/08/2021 12:[address] [facility] DEPARTMENT OF LABORATORY MEDICINE O2 Sat, Arterial 89(L) 94 - 98 % 04/08/20 12:[address] [facility] DEPARTMENT OF LABORATORY MEDICINE Calculated HCO3, Arterial 27.5 21.0 - 28.0 mmol/L 04/08/2021 12:[address] [facility] DEPARTMENT OF LABORATORY MEDICINE Base Excess, Arterial 2 -2 - 3 mmol/L 04/08/2021 12:[address] [facility] DEPARTMENT OF LABORATORY MEDICINE Patient Temperature 37.0 Celsius 04/08/2021 12:54 PM EST [facility] DEPARTMENT OF LABORATORY MEDICINE FIO2 21 % 04/08/2021 12:54 PM EST [facility] DEPARTMENT OF LABORATORY MEDICINE Blood, Arterial 04/08/2021 1 2:44 PM EST 04/08/2021 12:45 PM EST us Isha Brown EGG BREAKING MACHINE OPERATOR LAB BLOOD ORDERABL ES Final Result Performing Organization Address City/State/[facility] de Phone Number [facility] DEPARTMENT OF LABORATORY MEDICINE [address] [place] [address] documented in this encounter Visit Diagnoses Diagnosis [...] as of this encounter Care Teams Production Control Clerk Relationship Specialty Start Date End Date Deep Pruitt APRN PCP - General 05/22/19 documented as of this encounter
--- OUTSIDE RECORDS SUMMARY | 2024-09-23 12:15 | XMS_ITS | Encounter Summary ---
Author Organization [facility] Address [address] [place] [address] Care Team Providers Care Rvda Master Certified Rv Technician Name Role Phone Romelia Pruittian Niko LOPEZ Primary Care Provider Encounter Details Date Type Department Care Team (Late st Contact Info) Description 03/18/2021 Scanned Document [facility] [address] [place] [address] External, Provider Social History Tobacco Use Types [...] Date Recorded PHQ-2 Total Score 2 03/10/2021 [facility] of Occupat ional Health - [...] documented as of this encounter Care Teams Rvda Master Certified Rv Technician Relationship Specialty Start Date End Date Deep Pruitt APRN PCP - General 05/22/19 documented as of this encounter
--- OUTSIDE RECORDS SUMMARY | 2024-09-23 12:15 | XMS_ITS | Encounter Summary ---
Author Organization [facility] Address [address] [place] [address] Care Team Providers Care Mechanical Operator Name Role Phone Deep Pruitt APRN Primary Care Provider [phone] Reason for Visit * Reason Comments Medication Refill Encounter Details Date Type Department Care Team ([facility] st Contact Info) Description 03/08/2021 Refill [facility] [address] [place], [place] [phone] Deep Pruitt APRN [address] [place] [address] Medication Refill Social History Tobacco [...] as of this encounter Care Teams Mechanical Operator Relationship Specialty Start Date End Date Deep Pruitt APRN PCP - General 05/22/19 documented as of this encounter
--- OUTSIDE RECORDS SUMMARY | 2024-09-23 12:15 | XMS_ITS | Encounter Summary ---
Author Organization [facility] Address [address] [place] [address] Care Team Providers Care Packer Fuser Name Role Phone Deep Pruitt JOHN Primary Care Provider Reason for Visit * Reason Comments Medication Refill Encounter Details Date Type Department Care Team (Late st Contact Info) Description 12/03/2021 Refill [facility] Podiatry at [address] [place] [phone] Arben Fountain, NOLVIA [address] [place] [address] Medication Refill Social History Tobacco Use [...] Total Score 0 11/17/2021 [facility] - Occupational Stress Questionnaire Answer [...] documented as of this encounter Care Teams Packer Fuser Relationship Specialty Start Date End Date Deep Pruitt APRN PCP - General 05/22/19 documented as of this encounter
--- OUTSIDE RECORDS SUMMARY | 2024-09-23 12:15 | XMS_ITS | Encounter Summary ---
Author Organization [facility] [employer] and [facility] Address [address] [place] [phone] Care Team Providers Care Process Mechanic Name Role Phone Deep Pruitt APRN Primary Care Provider Reason for Visit * Reason Onset Date Comments Medication Refill 11/19/2021 Encounter Details Date Type Department Care Team (Late st Contact Info) Description 11/19/2021 Refill [facility] [address] [facility] [place] [address] [facility] [place] 2nd [place] [address] Yue Dominguez APRN [address] [place] [phone] Medication Refill Social History Tobacco Use Types [...] Date Recorded PHQ-2 Total Score 0 11/17/2021 [facility] of Occupat [...] documented as of this encounter Care Teams Process Mechanic Relationship Specialty Start Date End Date Deep Pruitt APRN PCP - General 05/22/19 documented as of this encounter
--- OUTSIDE RECORDS SUMMARY | 2024-09-23 12:16 | XMS_ITS | Encounter Summary ---
Author Organization [facility] Address [address] [place] [address] Care Team Providers Care Supervisor Asbestos Textile Name Role Phone Deep Pruitt JOHN Primary Care Provider Encounter Details Date Type Department Care Team (Late st Contact Info) Description 02/12/2016 Scanned Document [facility] [address] [place] [address] Francisco Veloz PA [address] [place] [phone] Social History Tobacco Use Types Packs/Day [...] as of this encounter Care Teams Supervisor Asbestos Textile Relationship Specialty Start Date End Date Deep Pruitt APRN PCP - General 05/22/19 documented as of this encounter
--- OUTSIDE RECORDS SUMMARY | 2024-09-23 12:16 | XMS_ITS | Encounter Summary ---
Author Organization [employer] Address [address] [facility] [address] 7t [place] [address] Care Team Providers Care Legal Aid Name Role Phone Katrin Santoyo MD Primary Care Pro vider Edison Vieira MD Unavailable [phone] Joe Devi MD Unavailable [phone] Reason for Visit * Reason Comments Med Refill Encounter Details Date Type Department Care Team (Late st Contact Info) Description 07/10/2024 Refill [facility] [address] [place], [place] [phone] June Jarvis ANP 230 [place], [place] [phone] Gout due to renal impairment, unspecified chronicity, [...] 10/07/2024 1:00 PM EDT Clinical Support [address] [address] 11/01/2024 1:15 PM EDT Office Visit [address] [address] Katrin Santoyo MD [address] [place] [address] 11/12/2024 9:45 AM EDT Office Visit [address] [address] documented as of this encounter Goals Goal [...] as of this encounter Care Teams Legal Aid Relationship Specialty Start Date End Date Katrin Santoyo MD 230 [place] [address] PCP - General Internal Medicine 12/13/22 Edison Vieira MD 5 [place] [address] Pulmonary Disease 04/07/24 Joe Devi MD 11 [facility] 3rd [place] [address] Gastroenterology 04/07/24 Carito Roche DNP 10 [facility], [address] [place] [address] Nephrology 04/07/24 [employer] 04/11/24 documented as of this encounter
--- OUTSIDE RECORDS SUMMARY | 2024-09-23 12:16 | XMS_ITS | Encounter Summary ---
Author Organization [facility] Address [address] [place] [address] Care Team Providers Care Contract Technical Writer Name Role Phone Deep Pruitt JOHN Primary Care Provider Encounter Details Date Type Department Care Team (Late st Contact Info) Description 01/17/2019 Scanned Document [facility] [address] [place], [place] [phone] External, Provider Social History Tobacco Use Types [...] as of this encounter Care Teams Contract Technical Writer Relationship Specialty Start Date End Date Deep Pruitt APRN PCP - General 05/22/19 documented as of this encounter
--- OUTSIDE RECORDS SUMMARY | 2024-09-23 12:16 | XMS_ITS | Encounter Summary ---
Author Organization [employer] Address 75 [facility] 7t [place] [address] Care Team Providers Care Bond Runner Name Role Phone Katrin Santoyo MD Primary Care Pro vider Edison Vieira MD Unavailable [phone] Joe Devi MD Unavailable [phone] Reason for Visit * Reason Comments Med Refill Encounter Details Date Type Department Care Team (Late st Contact Info) Description 01/02/2023 Refill [facility] 230 [place] [address] Elise Stanford FNP [address] [place] [address] Dept [place] [address] Hemorrhoids, unspecified hemorrhoid type Social History Tobacco [...] 1:00 PM EDT Clinical Support [facility] [place] [address] 11/01/2024 1:15 PM EDT Office Visit [address] [address] [place] [address] 11/12/2024 9:45 AM EDT Office Visit [facility] [place] [address] documented as of this encounter Goals Goal [...] documented as of this encounter Care Teams Bond Runner Relationship Specialty Start Date End Date Katrin Santoyo MD [address] [place] [address] PCP - General Internal Medicine 12/13/22 Edison Vieira MD 5 [place] [address] Pulmonary Disease 04/07/24 Joe Devi MD [address] 3rd [place] [address] Gastroenterology 04/07/24 Carito Roche DNP 10 [facility], [address] [place] [address] Nephrology 04/07/24 [employer] 04/11/24 documented as of this encounter
--- OUTSIDE RECORDS SUMMARY | 2024-09-23 12:16 | XMS_ITS | Encounter Summary ---
Author Organization [facility] and [facility] Address [address] [place] [address] Care Team Providers Care Certified Dialysis Technician Name Role Phone Deep Pruitt APRN Primary Care Provider Reason for Visit * Reason Onset Date Comments Medication Refill 11/10/2021 Encounter Details Date Type Department Care Team (Late st Contact Info) Description 11/10/2021 Refill [facility] [address] [facility] [address] [facility] 2nd [place] [address] Taylor Malagon, [facility] [address] [place] [phone] Medication Refill Social History Tobacco Use Types [...] 0 10/12/2021 [facility] of Occupat ional [facility] - Occupational Stress Questionnaire Answer Date [...] as of this encounter Care Teams Certified Dialysis Technician Relationship Specialty Start Date End Date Deep Pruitt APRN PCP - General 05/22/19 documented as of this encounter
--- OUTSIDE RECORDS SUMMARY | 2024-09-23 12:16 | XMS_ITS | Clinical Summary ---
Author Organization [address] [facility] Address [address] [place] [address] Phone Care Team Providers Care Lease Administration Analyst Name Role Phone Physician, No Pcp Primary [...] History Medical History Date Comments Diabetes mellitus ([facility] V24, [facility] V28) Hypertension REGI (obstructive sleep apnea) Social [...] * Annual BMP Blood Test (11/07/2023) Pathologist [facility] Annual BMP Blood Test Abstracted Historical Provider HEALTH MAINTENANCE Final Result * Lipid panel (09/19/2023) Pathologist [facility] Triglycerides 0 mg/dL Comment:No interpretation Cholesterol 0 mg/dL Comment:No interpretation HDL 0 mg/dL Comment:No interpretation LDL Cholesterol 0 mg/dL Comment:No interpretation Blood Venous blood specimen / Unknown Historical Provider LAB BLOOD ORDERABLES Fauzia l Result * Urine Albumin Creatinine Ratio (05/19/2023) Pathologist [facility] Urine Albumin Creatinine Ratio Abstracted us Historical Provider HEALTH MAINTENANCE Final Result * Hemoglobin A1c (05/17/2023) Pathologist [facility] Hemoglobin A1C 0.0 % Comment:No interpretation Blood Venous blood specimen / Unknown Result [facility] Provider LAB BLOOD ORDERABLES Fauzia l Result * HIV Screening (12/06/2022) HIV Screening Abstracted Result [facility] Provider HEALTH MAINTENANCE Final Result * Hepatitis C Screening (12/06/2022) Pathologist [facility] Hepatitis C Screening Abstracted Result [facility] Provider HEALTH MAINTENANCE Final Result from Last 3 Months or Most Recently Relevant to Health Maintenance [place] Care Teams Lease Administration Analyst Relationship Specialty Start Date End Date Physician, No Pcp PCP - General 04/08/24
--- OUTSIDE RECORDS SUMMARY | 2024-09-23 12:16 | XMS_ITS | Encounter Summary ---
Author Organization [facility] Address [address] [place] [address] Care Team Providers Care Coping Machine Operator Name Role Phone Deep Pruitt APRN Primary Care Provider Encounter Details Date Type Department Care Team ([facility] st Contact Info) Description 10/27/2021 Scanned Document [facility] 400 [place], [place] [phone] Deep Pruitt APRN [address] [place] [address] Social History Tobacco Use Types [...] Recorded PHQ-2 Total Score 0 10/12/2021 [facility] of Occupat ional Health [...] documented as of this encounter Care Teams Coping Machine Operator Relationship Specialty Start Date End Date Deep Pruitt APRN PCP - General 05/22/19 documented as of this encounter
--- OUTSIDE RECORDS SUMMARY | 2024-09-23 12:16 | XMS_ITS | Encounter Summary ---
Author Organization [facility] Address [address] [place] [address] Care Team Providers Care Surgeon Chief Name Role Phone Deep Pruitt JOHN Primary Care Provider [phone] Encounter Details Date Type Department Care Team (Late st Contact Info) Description 04/05/2017 Scanned Document [facility] [address] [place], [place] [phone] Francisco Veloz PA [address] [place] [phone] Social History Tobacco Use Types Packs/Day [...] documented as of this encounter Care Teams Surgeon Chief Relationship Specialty Start Date End Date Deep Pruitt APRN PCP - General 05/22/19 documented as of this encounter
--- OUTSIDE RECORDS SUMMARY | 2024-09-23 12:16 | XMS_ITS | Encounter Summary ---
Author Organization [employer] Address [address] [facility] 7t [place] [address] Care Team Providers Care Retail Selling Specialist Name Role Phone Elise Stanford LANGUAGE TRANSLATOR Primary Care Provider [phone] Katrin Santoyo MD Primary Care Pro vider Edison Vieira MD Unavailable [phone] Joe Devi MD Unavailable [phone] Encounter Details Date Type Department Care Team (Late st Contact Info) Description 12/06/2022 Telephone [facility] [address] [place] [address] Susan Manzano LPN Social History Tobacco Use [...] glucose of 411 today. Call placed via [employer] lead maintenance technician [id number] patient updated that BG this morning elevated. [...] Description 10/07/2024 1:00 PM EDT Clinical Support [address] [address] 11/01/2024 1:15 PM EDT Office Visit [address] [address] Katrin Santoyo MD [address] [place] [address] 11/12/2024 9:45 AM EDT Office Visit [address] [address] documented as of this encounter Visit Diagnoses Not on filedocumented in this encounter Additional Health Concerns Assessment Noted Time PHQ-9 Depression Total Score: 24 11/18/ 023 2:05 PM EDT documented as of this encounter Care Teams Retail Selling Specialist Relationship Specialty Start Date End Date Elise Stanford FNP PCP - General Family Medicine 11/24/22 12/12/22 Katrin Santoyo MD [address] [place] [address] PCP - General Internal Medicine 12/13/22 Edison Vieira MD [address] [place] [address] Pulmonary Disease 04/07/24 Joe Devi MD 11 [facility] 3rd [place] [address] Gastroenterology 04/07/24 Carito Roche DNP [address] [facility], [address] [place] [address] Nephrology 04/07/24 [employer] 04/11/24 documented as of this encounter
--- OUTSIDE RECORDS SUMMARY | 2024-09-23 12:16 | XMS_ITS | Encounter Summary ---
Author Organization [facility] Address [address] [place] [address] Care Team Providers Care Tank Truck Engine Mechanic Name Role Phone Deep Pruitt JOHN Primary Care Provider Encounter Details Date Type Department Care Team (Late st Contact Info) Description 02/13/2018 Scanned Document [facility] [address] [place] [address] Francisco Veloz PA [address] [place] [phone] Social History Tobacco Use Types Packs/Day [...] documented as of this encounter Care Teams Tank Truck Engine Mechanic Relationship Specialty Start Date End Date Deep Pruitt APRN PCP - General 05/22/19 documented as of this encounter
--- OUTSIDE RECORDS SUMMARY | 2024-09-23 12:16 | XMS_ITS | Encounter Summary ---
Author Organization [facility] [employer] and [facility] Address [address] [place] [address] Care Team Providers Care Art Gilder Name Role Phone Deep Pruitt APRN Primary Care Provider Reason for Visit * Reason Onset Date Comments Medication Refill 11/10/2021 Encounter Details Date Type Department Care Team (Late st Contact Info) Description 11/10/2021 Refill [facility] [address]nd [place], [place] [phone] Anahi Rossi, JOHN [address] [place] [address] Medication Refill Social History Tobacco [...] Date Recorded PHQ-2 Total Score 0 10/12/2021 [facility] [employer] of Occupat ional [facility] - [...] documented as of this encounter Care Teams Art Gilder Relationship Specialty Start Date End Date Deep Pruitt APRN PCP - General 05/22/19 documented as of this encounter
--- OUTSIDE RECORDS SUMMARY | 2024-09-23 12:16 | XMS_ITS | Encounter Summary ---
Author Organization [facility] Address [address] [place] [address] Care Team Providers Care Route Carrier Name Role Phone Deep Pruitt JOHN Primary Care Provider Encounter Details Date Type Department Care Team (Late st Contact Info) Description 01/01/2018 Scanned Document [facility] [address] [place], [place] [address] Francisco Veloz PA [address] [place] [phone] Social History Tobacco Use Types Packs/Day [...] documented as of this encounter Care Teams Route Carrier Relationship Specialty Start Date End Date Deep Pruitt APRN PCP - General 05/22/19 documented as of this encounter
--- OUTSIDE RECORDS SUMMARY | 2024-09-23 12:16 | XMS_ITS | Encounter Summary ---
Author Organization [facility] [employer] [facility] and [facility] Address [address] [place] [address] Care Team Providers Care Drying Machine Tender Name Role Phone Deep Pruitt APRN Primary Care Provider Reason for Visit * Reason Onset Date Comments Medication Refill 11/10/2021 Encounter Details Date Type Department Care Team (Late st Contact Info) Description 11/10/2021 Refill [facility] [address] [facility] 800 [facility] 2nd [place] [address] Taylor Malagon, [facility] 800 [place] [phone] Medication Refill Social History Tobacco Use Types [...] Date Recorded PHQ-2 Total Score 0 10/12/2021 [facility] of Occupat ional [facility] - Occupational Stress Questionnaire Answer Date [...] documented as of this encounter Care Teams Drying Machine Tender Relationship Specialty Start Date End Date Deep Pruitt APRN PCP - General 05/22/19 documented as of this encounter
--- OUTSIDE RECORDS SUMMARY | 2024-09-23 12:16 | XMS_ITS | Encounter Summary ---
Author Organization [facility] Address [address] [place] [address] Care Team Providers Care Extension Clerk Name Role Phone Deep Pruitt JOHN Primary Care Provider Encounter Details Date Type Department Care Team (Late st Contact Info) Description 09/26/2016 Scanned Document [facility] [address] [place], [place] [phone] External, Provider Social History Tobacco Use Types [...] as of this encounter Care Teams Extension Clerk Relationship Specialty Start Date End Date Deep Pruitt APRN PCP - General 05/22/19 documented as of this encounter
--- OUTSIDE RECORDS SUMMARY | 2024-09-23 12:16 | XMS_ITS | Encounter Summary ---
Author Organization [facility] Address [address] [place] [address] Care Team Providers Care Meat Service Team Member Name Role Phone Deep Pruitt JOHN Primary Care Provider Encounter Details Date Type Department Care Team (Late st Contact Info) Description 01/02/2017 Scanned Document [facility] [address] [place], [place] [phone] Francisco Veloz PA [address] [place] [address] Social History Tobacco Use Types [...] as of this encounter Care Teams Meat Service Team Member Relationship Specialty Start Date End Date Deep Pruitt APRN PCP - General 05/22/19 documented as of this encounter
--- OUTSIDE RECORDS SUMMARY | 2024-09-23 12:16 | XMS_ITS | Encounter Summary ---
Author Organization [facility] Address [address] [place] [address] Care Team Providers Care Senior Training And Development Rep Name Role Phone Deep Pruitt JOHN Primary Care Provider Encounter Details Date Type Department Care Team (Late st Contact Info) Description 02/20/2017 Scanned Document [facility] [address] [place] [address] Francisco Veloz PA [address] [place] [phone] Social History Tobacco Use Types Packs/Day [...] as of this encounter Care Teams Senior Training And Development Rep Relationship Specialty Start Date End Date Deep Pruitt APRN PCP - General 05/22/19 documented as of this encounter
--- OUTSIDE RECORDS SUMMARY | 2024-09-23 12:16 | XMS_ITS | Encounter Summary ---
Author Organization [employer] Address [address] [facility] 7t [place] [address] Care Team Providers Care Ward Nurse Name Role Phone Elise Stanford PANTRY ATTENDANT Primary Care Provider [phone] Katrin Santoyo MD Primary Care Pro vider Edison Vieira MD Unavailable [phone] Joe Devi MD Unavailable [phone] Encounter Details Date Type Department Care Team (Late st Contact Info) Description 12/06/2022 Telephone [facility] [address] [place] [address] Susan Manzano LPN Social History Tobacco Use [...] result line call from [place] with [facility]. Patient glucose reported as 411 today. Triage call to follow with patient. Please update PCP with critical result. documented in this encounter Plan of Treatment Upcoming Encounters Date Type Department Care Team (Late st Contact Info) Description 10/07/2024 1:00 PM EDT Clinical Support [address] [address] 11/01/2024 1:15 PM EDT Office Visit [address] [address] Katrin Santoyo MD [address] [place] [address] 11/12/2024 9:45 AM EDT Office Visit [address] [address] documented as of this encounter Visit Diagnoses Not on filedocumented in this encounter Additional Health Concerns Assessment Noted Time PHQ-9 Depression Total Score: 24 023 2:05 PM EDT documented as of this encounter Care Teams Ward Nurse Relationship Specialty Start Date End Date Elise Stanford FNP PCP - General Family Medicine 11/24/22 12/12/22 Katrin Santoyo MD [address] [place] [address] PCP - General Internal Medicine 12/13/22 Edison Vieira MD 5 [place] [address] Pulmonary Disease 04/07/24 Joe Devi MD 11 [facility] 3rd [place] [address] Gastroenterology 04/07/24 Carito Roche DNP 10 [facility], [address] [place] [address] Nephrology 04/07/24 [employer] 04/11/24 documented as of this encounter
--- OUTSIDE RECORDS SUMMARY | 2024-09-23 12:16 | XMS_ITS | Encounter Summary ---
Author Organization [facility] Address [address] [place] [address] Care Team Providers Care Soda Dry House Operator Name Role Phone Deep Pruitt APRN Primary Care Provider Reason for Visit * Reason Comments Other Advice Only Encounter Details Date Type Department Care Team ([facility] Contact Info) Description 10/20/2021 Telephone [facility] [address] [place] [address] Deep Pruitt APRN [address] [place] [address] Other; Advice Only Social History [...] legs have not stops hurting. Contact number [phone] documented in this encounter Plan of Treatment Not on file documented as of this encounter Visit Diagnoses Not on filedocumented in this encounter Additional Health Concerns Assessment Noted Time PHQ-9 Depression Total Score: 0 10/13/19 22 2:23 PM EDT documented as of this encounter Care Teams Soda Dry House Operator Relationship Specialty Start Date End Date Deep Pruitt APRN PCP - General 05/22/19 documented as of this encounter
--- OUTSIDE RECORDS SUMMARY | 2024-09-23 12:16 | XMS_ITS | Encounter Summary ---
Author Organization [facility] Address [address] [place] [address] Care Team Providers Care Commercial Front Load Operator Name Role Phone EtlanDeep medina Niko LOPEZ Primary Care Provider Reason for Visit * Reason Onset Date Comments Medication Refill 11/19/2021 Encounter Details Date Type Department Care Team (Late st Contact Info) Description 11/19/2021 Refill [facility] [address] [place] [address] Audelia Childs, DDS [address] [place] [address] Medication Refill Social History Tobacco [...] Date Recorded PHQ-2 Total Score 0 11/17/2021 [facility] [place] of Occupat ional Health - Occupational Stress [...] as of this encounter Care Teams Commercial Front Load Operator Relationship Specialty Start Date End Date Deep Pruitt APRN PCP - General 05/22/19 documented as of this encounter
--- OUTSIDE RECORDS SUMMARY | 2024-09-23 12:16 | XMS_ITS | Encounter Summary ---
Author Organization [employer] Address [address] [facility] 7t [place] [address] Care Team Providers Care Soaping Department Supervisor Name Role Phone Elise Stanford FELT HAT STEAMER Primary Care Provider [phone] Katrin Santoyo MD Primary Care Pro vider Edison Vieira MD Unavailable [phone] Joe Devi MD Unavailable [phone] Encounter Details Date Type Department Care Team (Latest Contact Info) Description 09/04/2018 Abstract [facility] CONVERSIONS Dental, Provider, DDS Social History [...] Description 10/07/2024 1:00 PM EDT Clinical Support [facility] [address] [place] [address] 11/01/2024 1:15 PM EDT Office Visit [address] [address] Katrin Santoyo MD [address] [place] [address] 11/12/2024 9:45 AM EDT Office Visit [address] [address] documented as of this encounter Visit Diagnoses Not on filedocumented in this encounter Care Teams Soaping Department Supervisor Relationship Specialty Start Date End Date Elise Stanford FNP PCP - General Family Medicine 11/24/22 12/12/22 Katrin Santoyo MD [address] [place] [address] PCP - General Internal Medicine 12/13/22 Edison Vieira MD 5 [place] [address] Pulmonary Disease 04/07/24 Joe Devi MD 11 [facility] 3rd [place] [address] Gastroenterology 04/07/24 Carito Roche DNP 10 [facility], [address] [place] [address] Nephrology 04/07/24 [employer] 04/11/24 documented as of this encounter
--- OUTSIDE RECORDS SUMMARY | 2024-09-23 12:16 | XMS_ITS | Encounter Summary ---
Author Organization [facility] [email or web address] and [facility] Address [address] [place] [phone] Care Team Providers Care Manager Instrumentation Name Role Phone Deep Pruitt APRN Primary Care Provider [phone] Reason for Visit * Reason Onset Date Comments Medication Refill 11/19/2021 Encounter Details Date Type Department Care Team (Late st Contact Info) Description 11/19/2021 Refill [facility] [address] [facility] [address] [facility] 2nd [place] [address] Yue Domniguez APRN [address] [place] [phone] Medication Refill Social History Tobacco Use Types [...] as of this encounter Care Teams Manager Instrumentation Relationship Specialty Start Date End Date Deep Pruitt APRN PCP - General 05/22/19 documented as of this encounter
--- OUTSIDE RECORDS SUMMARY | 2024-09-23 12:16 | XMS_ITS | Encounter Summary ---
Author Organization [employer] Address [address] [facility] 7[address] [place] [address] Care Team Providers Care Patch Machine Operator Name Role Phone Elise Stanford Primary Care Provider [phone] Katrin Santoyo MD Primary Care Pro vider Edison Vieira MD Unavailable [phone] Joe Devi MD Unavailable [phone] Reason for Visit * Reason Onset Date Comments Referral 11/24/2022 Podiatry Encounter Details Date Type Department Care Team (Late st Contact Info) Description 11/24/[address] [facility] [address] [place] [address] Elise Stanford FNP [address] [facility] Dept [place] [address] Referral (Podiatry/) Social History Tobacco Use Types [...] Anne Ocasio - 11/29/2022 9:46 AM EDT Repairer Helper re-faxed referral to Dr. Smith's office. Repairer Helper called Dr. Smith's office and confirmed that referral was received. Repairer Helper attempted to call patient twice to infirm that he may call to schedule his appt but did not answer and voicemail could not be left due to pt not having voicemail setup. Dr. Smith [address] [place] [place] [place] [address] FAX [phone] * Telephone Encounter - Elizabeth Melo - 11/24/2022 9:51 AM EDT Tc from patient requesting status on podiatry referral. Repairer Helper provided address and phone number and patient stated they told him they don't have a referral or any notes for referral. Patient states he let them know of referral letter and they stated they still need notes to be seen. documented in this encounter Plan of Treatment Upcoming Encounters Date Type Department Care Team ([facility] st Contact Info) Description 10/07/2024 1:00 PM EDT Clinical Support [address] [address] 11/01/2024 1:15 PM EDT Office Visit [address] [address] Katrin Santoyo MD [address] [place] [address] 11/12/2024 9:45 AM EDT Office Visit [address] [address] documented as of this encounter Visit Diagnoses Not on filedocumented in this encounter Additional Health Concerns Assessment Noted Time PHQ-9 Depression Total Score: 24 11/18/ 023 2:05 PM EDT documented as of this encounter Care Teams Patch Machine Operator Relationship Specialty Start Date End Date Nathan StanfordHAYLEE Bianchi PCP - General Family Medicine 11/24/22 12/12/22 Katrin Santoyo MD [address] [place] [address] PCP - General Internal Medicine 12/13/22 Edison Vieira MD [address] [place] [address] Pulmonary Disease 04/07/24 Joe Devi MD [address] [facility] 3rd [place] [address] Gastroenterology 04/07/24 Carito Roche DNP [address] [facility], [address] [place] [address] Nephrology 04/07/24 [facility] 04/11/24 documented as of this encounter
--- OUTSIDE RECORDS SUMMARY | 2024-09-23 12:16 | XMS_ITS | Encounter Summary ---
Author Organization [facility] Address [address] [place] [address] Care Team Providers Care Six Sigma Black Belt Engineer Name Role Phone Deep Pruitt JOHN Primary Care Provider [phone] Encounter Details Date Type Department Care Team (Late st Contact Info) Description 11/22/2017 Scanned Document [facility] [address] [place], [place] [id number] Francisco Veloz PA [address] [place] [address] Social History Tobacco Use Types [...] documented as of this encounter Care Teams Six Sigma Black Belt Engineer Relationship Specialty Start Date End Date Deep Pruitt APRN PCP - General 05/22/19 documented as of this encounter
--- OUTSIDE RECORDS SUMMARY | 2024-09-23 12:16 | XMS_ITS | Clinical Summary ---
Author Organization [facility] Address [address] [facility] [address] [place] [address] Phone Care Team Providers Care Access Service Representative Name Role Phone Katrin Brumfield Primary Care [...] 4 12/04/19 25 Active ergocalciferol 1.25 MG (11599 UT) capsule Take 1 capsule (50,000 Units [...] (01/25/2023): information and pathology of colonospcy in [facility] 09-09-2020 note Asthma 01/06/2023 01/25/2023 [...] with Arben Fountain DPM at the [facility] -Will f/u with Pt in a [...] (see MRI of Brain from 2017 under [facility] Multimedia -Significant deficits on neurologic exam Memory loss and Left handed weakness -Imaging and prior evaluation -Current blood thinning agents is aspirin -Potential details to include, when relevant: poor GAIT, uses a walker to get around -How the diagnosis was made: Pt lived in [facility] at the time, Under Multimedia in [facility] see specific file at specific date [id number].TIF Image MRI Result [facility] - MRI BRAIN CVA -09/25/2016 [id number].TIF Image Evaluation [facility]- Left handed weakness note - 02/20/2017 [...] 2019, the Pt needs to call the [facility] [address] [place], [place] [phone] Diabetic foot 02/07/2019 01/25/2023 01/25/2023 Overview (01/25/2023): Last Assessment & Plan: The Pt continues to deal with bilateral foot pain and wears a pair of Diabetic shoes with specification ordered by his Crew Chief Doctor Patient encounter status 02/07/2019 01/25/2023 Overview [...] by [facility] Nurse to review his FBS finger sticks [...] medications -He has been following with the [facility] and reports taking all of [...] decided to move his family back to [place] area due to being closer to family [...] , 03/24/2022, Additional history exists [place] Care Teams Access Service Representative Relationship Specialty Start Date End Date Katrin Brumfield [address] [place] [address] PCP - General 04/17/23
--- OUTSIDE RECORDS SUMMARY | 2024-09-23 12:17 | XMS_ITS | Encounter Summary ---
Author Organization [facility] [employer] and [facility] Address [address] [place] [address] Care Team Providers Care Pharmacy Ancillary Name Role Phone Deep Pruitt APRN Primary Care Provider Reason for Visit * Reason Onset Date Comments Medication Refill 10/12/2021 Encounter Details Date Type Department Care Team (Late st Contact Info) Description 10/12/2021 Refill [facility] at [address] [place] [address] Anahi Rossi, JOHN [address] [place] [address] Medication Refill Social History Tobacco [...] 0 10/12/2021 [facility] of Occupat ional [facility] - Occupational Stress Questionnaire Answer Date [...] documented as of this encounter Care Teams Pharmacy Ancillary Relationship Specialty Start Date End Date Deep Pruitt APRN PCP - General 05/22/19 documented as of this encounter
--- OUTSIDE RECORDS SUMMARY | 2024-09-23 12:17 | XMS_ITS | Encounter Summary ---
Author Organization [facility] Address [address] [place] [address] Care Team Providers Care Job Developer For Deaf Adults Name Role Phone Deep Pruitt JOHN Primary Care Provider Reason for Visit * Reason Onset Date Comments Medication Refill 10/12/2021 Encounter Details Date Type Department Care Team (Late st Contact Info) Description 10/12/2021 Refill [facility] Nutrition at [address] [address] Angie Mcghee MD [address] [place] [phone] Medication Refill Social History Tobacco Use Types [...] as of this encounter Care Teams Job Developer For Deaf Adults Relationship Specialty Start Date End Date Deep Pruitt APRN PCP - General 05/22/19 documented as of this encounter
--- OUTSIDE RECORDS SUMMARY | 2024-09-23 12:17 | XMS_ITS | Encounter Summary ---
Author Organization [facility] Address [address] [place] [address] Care Team Providers Care Marketing Designer Name Role Phone Deep Pruitt APRN Primary Care Provider Reason for Visit * Reason Comments Medication Refill Encounter Details Date Type Department Care Team ([facility] st Contact Info) Description 11/24/2020 Telephone [facility] [address] [place] [address] Deep Pruitt APRN [address] [place] [address] Medication Refill Social History Tobacco [...] Date Recorded PHQ-2 Total Score 0 11/18/2020 [facility] of Occupat ional [...] of certain medication. Call back number is [phone] (macedonian speaking) preferred pharmacy is [facility] [address] [address] documented in this encounter Plan [...] as of this encounter Care Teams Marketing Designer Relationship Specialty Start Date End Date Deep Pruitt APRN PCP - General 05/22/19 documented as of this encounter
--- OUTSIDE RECORDS SUMMARY | 2024-09-23 12:17 | XMS_ITS | Encounter Summary ---
Author Organization [facility] [employer] and [facility] Address [address] [place] [phone] Care Team Providers Care Commercial Hvac Service Technician Name Role Phone Deep Pruitt APRN Primary Care Provider Reason for Visit * Reason Onset Date Comments Medication Refill 09/30/2021 Encounter Details Date Type Department Care Team (Late st Contact Info) Description 09/30/2021 Refill [facility] at [address] [facility] [address] [facility] 2nd [place] [address] Kaity Harris, APPLICATION DEVELOPER MANAGER [address] [place] [phone] Medication Refill Social History Tobacco Use Types [...] PHQ-2 Total Score 5 09/14/2021 [facility] - Occupational Stress Questionnaire [...] as of this encounter Care Teams Commercial Hvac Service Technician Relationship Specialty Start Date End Date Deep Pruitt APRN PCP - General 05/22/19 documented as of this encounter
--- OUTSIDE RECORDS SUMMARY | 2024-09-23 12:17 | XMS_ITS | Encounter Summary ---
Author Organization [facility] Address [address] [place] [address] Care Team Providers Care Pta Name Role Phone Pine[place]Deep medina Niko LOPEZ Primary Care Provider Encounter Details Date Type Department Care Team (Late st Contact Info) Description 02/19/2020 Scanned Document [facility] [address] [place], [place] [phone] Arben Fountain, NOLVIA [address] [place] [address] Social History Tobacco Use Types [...] Answer Date Recorded PHQ-2 Score 2 10/02/2019 [facility] of Occupat ional Health - Occupational Stress [...] documented as of this encounter Care Teams Pta Relationship Specialty Start Date End Date Deep Pruitt APRN PCP - General 05/22/19 documented as of this encounter
--- OUTSIDE RECORDS SUMMARY | 2024-09-23 12:17 | XMS_ITS | Clinical Summary ---
Author Organization [employer] Address [address] [facility] [address] [place] [address] Care Team Providers Care Log Hauler Name Role Phone Katrin Santoyo MD Primary Care Pro vider Edison Vieira MD Unavailable [phone] Joe Devi MD Unavailable [phone] Allergies Active Allergy Reactions Criticality Noted [...] [facility] 023 Active DULoxetine [...] bedtime Active Blood Glucose Monitoring Suppl (FreeStyle [place] Lite) w/Device kitIndications: Type 2 diabetes mellitus with diabetic nephropathy, with long-term current use of insulin ([facility]) Use to test blood sugar bid [...] feet Active ergocalciferol (Vitamin D-2) 1.25 MG (01080 UT) capsule Take 1 capsule by mouth. Every Monday and Active lidocaine (Lidoderm) 5 % patch Apply 1 patch topically Once per day. 12 hours on and 12 hours off Active SSD 1 % cream Apply 1 Application. topically Once per day. Active FreeStyle lancetsIndicati ons:Type 2 diabetes mellitus with diabetic nephropathy, with long-term current use of insulin ([facility]) 1 each by Other route before [...] MORNING 90 tablet 1 025 Active Nebulizers [facility] Use nebulizer as instructed 1 each Active [...] PEN (=2.5MG) SUBCUTANEOUSLY ONCE A WEEK DIRECTED Active permethrin (Elimite) 5 % cream apply to skin from hairline to toes and wash off 8-10 hours later,repeat in 14 days 60 g Active triamcinolone (Kenalog) 0.1 % cream Apply [...] for severe pain. 84 tablet 025 Active calcium carbonate (Tums) 500 MG chewable tabletIndicatio ns:Elevated parathyroid hormone Chew 2 tablets (1,000 mg) Once per day. 180 tablet 024 2024 cholecalciferol (Vitamin D-3) 50 MCG (1999 UT) tabletIndicatio ns:Elevated parathyroid hormone Take 1 tablet (50 mcg) by mouth Once per day. 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 SYSTEMS PROGRAM MANAGER Agreement: 04/02/24 Additional considerations: BZO from outside prescriber Assessment & Plan (09/18/2024 5:50 PM EDT): Timeline: - 08/13/24: Group Visit - utox/pill count as expected - 09/17/24: Group Visit - utox/pill count as expected Assessment & Plan (08/13/2024 1:58 PM EDT): Timeline: - 08/13/24: Group Visit - utox/pill count as expected Chronic respiratory failure with hypoxia 09/27/2 024 On home oxygen therapy 02/02/2024 Assessment & Plan (04/07/2024 2:01 PM EST): - Continues on 2L oxygen - Followed by [facility] Puljorge - Dr. Vieira Right foot pain 11/13/2023 [...] lesions. Secondary dental caries 10/23/2023 Fractured dental spiritism without loss of mat erial 10/23/2023 Alkaline [...] of multiple topical analgesics after discussion with [facility] Pharmacist - meds sent to pharmacy below. [...] 2022, f/u appt 01/2023 Dental: Refer pt [facility] on 12/13/22 Moderate persistent asthma 11/07/2022 Overview (11/07/2022): -The Pt saw Pulmonology in [place] 0853405/21/2021 -stable with the use of Advair and [...] Will focus on improving diabetic control Discuss paraeducator referral at next visit F/u 1 month [...] (04/07/2024 2:05 PM EST): - Following with [facility] - CASSIDY Roche [...] disordered breathing. RECOMMENDATIONS / PLAN : -Current [employer] recommendations for treatment of [...] response to BPAP S on 17 cm. - Following with [facility] Pulmonology - Dr. Vieira - [...] him that it is not a intermediate accountant med. He will fu w PCP next [...] told him that it is not a half-way med. He will fu w PCP next week. Use heat to affected area Diabetes mellitus with diabetic nephropathy 12/09/2022 12/13/2022 History of colonoscopy 12/09/202201/23 Overview (12/09/2022): information and pathology of colonospcy in [facility] 09-09-2020 note Hyperlipidemia due to type 2 diabetes mellitus ([facility]) 12/09/2022 01/23/2023 Abnormal gait 12/09/2022 01/23/2023 Overview [...] Encounters Date Type Department Care Team Description 09/20/2024 Results Follow-Up [facility] [address] [place] [phone] Billy Martínez MD POCT glucose manually resulted, Uric acid, Basic Metabolic Panel 09/19/2024 1:20 PM EDT Office Visit [facility] [address] [place] [address] [phone] Billy Martínez MD Bilateral foot pain (Primary Dx); Type 2 diabetes mellitus with stage 3 chronic kidney disease, with long-term current use of insulin, unspecified whether stage 3a or 3b CKD ([facility]) 09/19/2024 Results Follow-Up [facility] [address] [place] [address] [phone] Katrin Santoyo MD POCT Glucose, POCT HGB A1C, Cortisol Random, Lipase 09/19/2024 Results Follow-Up [facility] [address] [place] [address] [phone] Katrin Santoyo MD PTH, Intact Without Calcium 09/19/2024 Orders Only GENERIC EXTERNAL DATA DEPARTMENT Provider, Generic External Data 09/17/2024 9:45 AM EDT Office Visit [facility] [address] [place] [phone] Moriah Herbert FNP Chronic radicular lumbar pain (Primary Dx); Long-term current use of opiate analgesic 09/17/2024 Travel 09/03/2024 1:00 PM EDT Office Visit [facility] [address] [place] [phone] Moriah Herbert FNP Papular rash, localized (Primary Dx) 09/03/2024 Travel 09/02/2024 Telephone [facility] [address] [place] [phone] Katrin Santoyo MD Medication Question 08/28/2024 Refill [facility] [address] [address] Dhara Cardenas MD 08/27/[address] [address] Katrin Santoyo MD Durable Medical Equipment (Compression stockings) 08/23/[address] [address] Taylor Thomas RN PT Referral/[facility] 08/22/2024 1:15 PM EDT Office Visit [address] [address] Katrin Santoyo MD Adrenal adenoma, unspecified laterality (Primary Dx); Type 2 diabetes mellitus with stage 3 chronic kidney disease, with long-term current use of insulin, unspecified whether stage 3a or 3b CKD ([facility]); Acute gout, unspecified cause, unspecified site; Dietary counseling; Exercise counseling; Chronic pancreatitis, unspecified pancreatitis type ([facility]); Diabetes mellitus, labile ([facility]); Chronic respiratory failure with hypoxia ([facility]); Moderate persistent asthma without complication; Neuropathy due to type 2 diabetes mellitus ([facility]); Obstructive sleep apnea; Primary hypertension; Adrenal adenoma, right; Chronic kidney disease (CKD) stage G3a/A3, moderately decreased glomerular filtration rate (GFR) between 45-59 mL/min/1.73 square meter and albuminuria creatinine ratio greater than 300 mg/g ([facility]); Acute gout of left foot, unspecified cause; Bilateral leg edema; Secondary dental caries; Health care maintenance; Memory loss; Skin pruritus 08/22/2024 Travel 08/20/2024 Refill [facility] [address] [place] [phone] Katrin Santoyo MD 08/17/2024 Refill [facility] [address] [place] [phone] Shirin Alabrran MD Chronic radicular lumbar pain 08/15/[address] [address] Katrin Santoyo MD chart prep 08/13/2024 9:45 AM EDT Office Visit [address] [address] Moriah Herbert FNP Chronic radicular lumbar pain (Primary Dx); Long-term current use of opiate analgesic 08/13/2024 Travel 08/01/[address] [address] June Jarvis ANP DME from [facility] 07/30/2024 Orders Only [address] [address] June Jarvis ANP Gastroesophageal reflux disease, unspecified whether esophagitis present (Primary Dx) 07/29/2024 Orders Only GENERIC EXTERNAL DATA DEPARTMENT Provider, Generic External Data 07/23/2024 Orders Only [facility] External Provider, [facility] 07/19/2024 Population Health Risk Score Community [facility] (C3) Department [address] [place] [phone] Provider, Population Health Generic 07/17/2024 5:00 PM EDT Office Visit [facility] [address] [address] Cleo Reynoso, HAYLEE Diarrhea, unspecified type (Primary Dx) 07/16/2024 9:45 AM EDT Office Visit [address] [address] Moriah Herbert, [employer] Chronic radicular lumbar pain (Primary Dx); Long-term current use of opiate analgesic; Gout involving toe of left foot, unspecified cause, unspecified chronicity; Type 2 diabetes mellitus with stage 3 chronic kidney disease, with long-term current use of insulin, unspecified whether stage 3a or 3b CKD ([facility]) 07/16/2024 Travel 07/10/2024 2:00 PM EST Office Visit [facility] [address] [place] [phone] Katrin Leroy MD Lipoma of other specified sites (Primary Dx); Acute gout of left foot, unspecified cause; Primary hypertension; Burn 07/10/2024 Refill [facility] [address] [place] [phone] June Jarvis ANP Gout due to renal impairment, unspecified chronicity, unspecified site 07/03/2024 Travel 07/03/2024 Telephone [facility] [address] [place] [address] Gabriela Rea RN r/s chronic pain group 07/03/2024 Refill [facility] [address] [place] [phone] Katrin Santoyo MD 07/02/2024 Travel 2024 11:20 AM EST Office Visit [facility] [address] [place] [phone] Dhara Cardenas MD Acute bronchitis, unspecified organism (Primary Dx); Influenza A 2024 Telephone [facility] [address] [place] [phone] Katrin Santoyo MD Med Refill 2024 Refill [facility] [address] [place] [phone] Katrin Santoyo MD from Last 3 Months [...] Description 10/07/2024 1:00 PM EDT Clinical Support [address] [address] 11/01/2024 1:15 PM EDT Office Visit [address] [address] Katrin Santoyo MD [address] [place] [phone] 11/12/2024 9:45 AM EDT Office Visit [address] [address] Health Maintenance Due Date Last Done Comments CT Colonography 1970 Colonoscopy 1970 Colorectal Cancer Screening 1970 FIT DNA/Cologuard 1970 FIT 1970 FOBT 1970 Sigmoidoscopy 1970 Disability Screening 1970 Eye Exam 1980 Alcohol/Substance Use Screening 1982 Hepatitis A Vaccines (1 of 2 - Risk 2-dose series) 1989 Dental Oral Exam 02/15/2019 08/15/2018 Dental Prophylaxis 03/07/2019 09/04/2018 Dental X-Ray: Bitewings 08/17/2019 08/15/2018 Zoster Vaccines (1 of 2) 2020 Dental X-Ray: Full Mouth 08/16/2021 08/15/2018 SDOH Screening 06/06/2024 06/06/2023 Lipid Panel 09/18/2024 09/19/2023, 05/08, 12/06/2022 Depression Screening 10/30/2024 10/31/2023, 10/31/19 24 Diabetes: Hemoglobin A1C 11/21/2024 025, 03/27/2024, 02/01/2024, [...] Procedure Name Priority Date/Time Associated Diagnosis Comments PTH, INTACT WITHOUT CALCIUM Routine 09/19/2024 2:44 PM EDT IRON AND TOTAL IRON BINDING CAPACITY Routine 09/19/2024 2:44 PM EDT PHOSPHATE ( PHOSPHORUS) Routine 09/19/2024 2:44 PM EDT VITAMIN D,25-OH,TOTAL,IA Routine 09/19/2024 2:44 PM EDT FERRITIN Routine 09/19/2024 2:44 PM EDT BASIC METABOLIC PANEL Routine 09/19/2024 2:44 PM EDT Bilateral foot pain URIC ACID Routine 09/19/2024 2:44 PM EDT Bilateral foot pain LIPASE Routine 09/19/2024 2:44 PM EDT Type 2 diabetes mellitus with stage 3 chronic kidney disease, with long-term current use of insulin, unspecified whether stage 3a or 3b CKD ([facility]/HCC) CORTISOL RANDOM Routine 09/19/2024 2:44 PM EDT Adrenal adenoma, unspecified laterality POCT GLUCOSE Routine 09/19/2024 1:18 PM EDT [...] Recently Relevant to Health Maintenance Results * Cortisol Random (09/19/2024 2:44 PM EDT) Cortisol Random 5.1 ug/dL [facility] Comment:Reference Range*: Be fore 10 am 6.2-19.4 ug/dL After 5 pm 2.3-11.9 ug/dL*Please interpret above results accordingly.This test was performed using the [employer] chemiluminescentmethod. Values obtained from different assay methods cannotbe used interchangeably.Patients receiving fludrocortisone, prednisolone orprednisone may show artificially elevated cortisol valuesdue to cross-reactivity. 09/19/2024 2:44 PM EDT 09/19/2024 4:10 PM EDT us Katrin López MD LAB BLOOD ORDERAB LES Final Result [facility] [address] [place] [address] [phone] * (ABNORMAL) Vitamin D, 25-Hydroxy, Total, Immunoassay (09/19/2024 2:44 PM EDT) Vitamin D 25-OH Total 12.7(L) >30 ng/mL [facility] Comment: Health Based Reference Values*< 20 ??ng/mL ??[id number] ng/mL ??Insufficient> 30 ??ng/mL ??Sufficient*Juan LEWIS. N [...] Provider LAB BLOOD ORDERAB LES Final Result [facility] [address] [place] [phone] * (ABNORMAL) Iron And Total Iron Binding Capacity (09/19/2024 2:44 PM EDT) Iron 56 45 - 160 mcg/dL [facility] Total Iron Binding Capacity 192(L) 228 - 428 mcg/dL [facility] Percent Iron Saturation 29 15 - 50 % [facility] Unsaturated Iron Binding 136 ug/dL [facility] 09/19/2024 2:44 PM EDT 09/19/2024 4:10 PM EDT Generic External Data Provider LAB BLOOD ORDERAB LES Final Result Performing Organization Address [facility] Co de Phone Number [facility] [address] [place] [phone] * Uric acid (09/19/2024 2:44 PM EDT) Uric Acid 6.3 3.4 - 7.0 mg/dL [facility] Blood Venous blood specimen / Unknown 09/19/2024 2:44 PM EDT 09/19/2024 4:10 PM EDT Billy Martínez MD LAB BLOOD ORDERABLES Final Resul t Performing Organization Address [facility] Co de Phone Number [facility] [address] [place] [phone] * Phosphate (As Phosphorus) (09/19/2024 2:44 PM EDT) Phosphorus 3.5 2.7 - 4.5 mg/dL [facility] 09/19/2024 2:44 PM EDT 09/19/2024 4:10 PM EDT us Generic External Data Provider LAB BLOOD ORDERAB LES Final Result Performing Organization Address [facility] de Phone Number [facility] [address] [place] [phone] * (ABNORMAL) PTH, Intact Without Calcium (09/19/2024 2:44 PM EDT) Parathyroid Hormone, Intact 683.9(H) 8.7 - 77.1 pg/mL [facility] 09/19/2024 2:44 PM EDT 09/19/2024 4:10 PM EDT us Generic External Data Provider LAB BLOOD ORDERAB LES Final Result Performing Organization Address [facility] de Phone Number [facility] [address] [place] [phone] * (ABNORMAL) Lipase (09/19/2024 2:44 PM EDT) Pathologist [facility] Lipase 117(H) 8 - 78 U/L [facility] Blood Venous blood specimen / Unknown 09/19/2024 2:44 PM EDT 09/19/2024 4:10 PM EDT us Katrin López MD LAB BLOOD ORDERAB LES Final Result Performing Organization Address [facility] Phone Number [facility] [address] [place] [phone] * Ferritin (09/19/2024 2:44 PM EDT) Pathologist [facility] Ferritin 32 20 - 250 ng/mL [facility] 09/19/2024 2:44 PM EDT 09/19/2024 4:10 PM EDT us Generic External Data Provider LAB BLOOD ORDERAB LES Final Result Performing Organization Address [facility] de Phone Number [facility] [address] [place] [phone] * (ABNORMAL) Basic Metabolic Panel (09/19/2024 2:44 PM EDT) Pathologist [facility] Sodium 139 135 - 145 mmol/L [facility] Potassium 3.7 3.3 - 5.1 mmol/L [facility] Chloride 108 96 - 108 mmol/L [facility] Carbon Dioxide 24 22 - 29 mmol/L [facility] Anion Gap 11(L) 12 - 20 [facility] Urea Nitrogen (BUN) 37(H) 9 - 16 mg/dL [facility] Creatinine, Serum 4.53(HH) 0.5 - 1.4 mg/dL [facility] Comment:Critical value for t est(s): SHIRA Results called to agatha back by: DR. FLORENCIO CARDONA Person calling: NGUYENQDate:09/19/24 Time:1654 Estimated Glomerular Filt Rate 14 [facility] Comment:Chronic Kidney Disea se: Estimated GFR < 60 mL/min/1.87w3Ssymhl Kidney Disease: Estimated GFR < 15 mL/min/1.73m2 Glucose 280(H) 60 - 115 mg/dL [facility] Calcium 8.4 8.4 - 10.2 mg/dL [facility] Blood Venous blood specimen / Unknown 09/19/2024 2:44 PM EDT 09/19/2024 4:10 PM EDT us Billy Martínez MD LAB BLOOD ORDERABLES Final Resul t [facility] [address] [place] [phone] * (ABNORMAL) POCT glucose manually resulted (09/19/2024 1:18 PM EDT) Only the most recent of4 resultswithin the time period is included. Glucose Blood, POC 406(A) 60 - 200 mg/dL Blood Capillary blood specimen / Unknown 09/19/2024 1:18 PM EDT us Billy Martínez MD POINT OF CARE TEST [...] MTD, OXY, PCP, TCA, THC. .UTOX cup Lot#[id number] Exp. 12/25/25 Internal Pass Control us Moriah Herbert [employer] POINT OF CARE TEST ENTER/EDIT ORDERABLES Final Result * (ABNORMAL) POCT HGB A1C (08/22/2024 1:13 PM EDT) Hemoglobin A1C 10.2(A) 4.0 - 6.0 % QC Media Lot # [id number] Lot# Expiration Date [id number] Blood 08/22/2024 1:13 PM EDT us Katrin López MD POINT OF CARE IRAM T ENTER/EDIT ORDERABLES Final Result * FL upper GI w air (07/30/2024 8:20 AM EDT) Anatomical Region Laterality Modality Body Radiographic Cierra ging 07/30/2024 8:20 AM EDT Narrative 07/30/2024 10:23 AM EDT ? [facility] ?[address] ?[place] [address] ? Fluoroscopy Report ? Signed ? Patient: Darrel Hagan ?MR#: [id number] ?? [id number] ? : 1970 ?Acct:[id number] ? Age/Sex: 54 / M ?ADM Date: 07/30/ ? Loc: HO.XRAY ? Attending Dr: Chuy Mcmanus MD ? Ordering Physician: Chuy Mcmanus MD ?? Date of Service: 07/30/24 ?? Procedure(s): FL upper GI w air ?? Accession Number(s): [id number] ? cc: Katrin Santoyo MD; Chuy Mcmanus [...] DD/ 0820 ? TD/TT: 07/30/24 0850 ? Chief Of Police: ? Procedure Note Donotuseinterpreter, Image - 07/30/[address] [address] Fluoroscopy Report Signed Patient: Darrel HaganMR#: [id number] : 1970Acct:[id number] Age/Sex: 54 / MADM Date: 07/30/24 Loc: YURY Attending Dr: Chuy Mcmanus MD Ordering Physician: Chuy Mcmanus MD Date of Service: 07/30/24 Procedure(s): FL upper GI w air Accession Number(s): [id number] cc: Katrin Santoyo MD; Chuy Mcmanus MD [...] 07/30/24 1020 DD/ 0820 TD/TT: 07/30/24 0850 Chief Of Police: [facility] Exter nal Provider IMG FLUOROSCOPY PROCEDURES Edited Result - Final * XR Chest 2 Views (07/30/2024 8:05 AM EDT) Anatomical Region Laterality Modality Chest Radiographic Cierra ging 07/30/2024 8:05 AM EDT Narrative 07/30/2024 10:25 AM EDT ? [facility] ?[address] ?[place] [address] ?XRay Report ? Signed ? Patient: Benton Cortes,Darrel ?MR#: [id number] ?? [id number] ? : 1970 ?Acct:[id number] ? Age/Sex: 54 / M ?ADM Date: 03/25/25 ? Loc: HO.XRAY ? Attending Dr: Chuy Mcmanus MD ? Ordering Physician: Chuy Mcmanus MD ?? Date of Service: 07/30/24 ?? Procedure(s): XR chest 2V ?? Accession Number(s): [id number] ? cc: Katrin Santoyo MD; Chuy Mcmanus [...] DD/ 0805 ? TD/TT: 07/30/24 0819 ? Chief Of Police: ? Procedure Note Pato, Image - 07/30/2024 [place] [address] XRay Report Signed Patient: Rayo Hagan#: [id number] : 1970Acct:[id number] Age/Sex: 54 / MADM Date: 07/30/24 Loc: YURY Attending Dr: Chuy Mcmanus MD Ordering Physician: Chuy Mcmanus MD Date of Service: 07/30/24 Procedure(s): XR chest 2V Accession Number(s): [id number] cc: Ktarin Santoyo MD; Chuy Mcmanus MD EXAMINATION: XR [...] 07/30/24 1022 DD/ 0805 TD/TT: 07/30/24 0819 Chief Of Police: [facility] External Provider IMG XR PROCEDURES Edited Result - Final * Gross and Microscopic Level 3 (07/29/2024 11:45 AM EDT) 07/29/2024 11:4 5 AM EDT 07/30/2024 8:48 AM EDT [facility] - 07/31/2024 2:11 PM EDT ----- ------- Name: Darrel Hagan ? Age/Sex: 54/M ? : 1970 Unit#: [id number] ?? Attend Dr: Handy Phoenix MD ?Re07/29/24 ?Status: DEP REF ? Location: HO.LAB ?Disch: ? ----- ------- SPEC : [id number] ? RECD: 07/30/24 ? STATUS: ??SOUT ? REQ NUM: [id number] ? ESTUARDO: 07/29/24-1144 ? SUBM DR: Handy Phoenix MD ? [...] To: ?? Katrin Santoyo MD ?? [address] ?? [place] [address] ?? [phone] ?? Handy Phoenix MD ?? [facility] General Surgeons ?? [address] ?? [place] [address] ?? [phone] ?? [email or web address] ? CONTINUED ON NEXT PAGE ----- ------- Name: Darrel Hagan ? Age/Sex: 54/M ? : 1970 Unit#: [id number] ?? Attend Dr: Handy Phoenix MD ?Re07/29/24 ?Status: DEP REF ? [facility] ?Disch: ? ----- ------- SPEC : [id number] ? RECD: 07/30/24-847 ? STATUS: ??SOUT ? REQ NUM: [id number] ? ESTUARDO: 07/29/24-1145 ? SUBM DR: Handy Phoenix MD ? ENTERED: ??07/30/24-08 ?SP TYPE: Surgical ? OTHR DR: Katrin Santoyo MD ORDERED: ??Gross Micro L3 ? ----- ------- Signed (signature on file) Nereida Owens 07/31/241 ? ----- ------- ? END OF REPORT ? us Generic External Data Provider LAB CYTOLOGY SIOBHAN [place] Final Result [facility] [address] [place] [address] [phone] * US Abdomen Comp w elastography (07/23/2024 8:45 AM EDT) Anatomical Region Laterality Modality Abdomen Ultrasound 07/23/2024 8:45 AM EDT Narrative 07/23/2024 9:23 AM EDT ? [facility] ?[address] ?[place] [address] ? Ultrasound Report ? Signed ? Patient: Darrel Hagan ?MR#: [id number] ?? [id number] ? : 1970 ?Acct:[id number] ? Age/Sex: 54 / M ?ADM Date: 07/23/24 ? Loc: HO.US ? Attending Dr: Chuy Mcmanus MD ? Ordering Physician: Chuy Mcmanus MD ?? Date of Service: 07/23/24 ?? Procedure(s): US abdomen comp w elastography ?? Accession Number(s): [id number] ? cc: Katrin Santoyo MD; Chuy Mcmanus [...] DD/ 0845 ? TD/TT: 07/23/24 0904 ? Chief Of Police: ? Procedure Note Pato, Image - 07/23/[address] [address] Ultrasound Report Signed Patient: Darrel Hagan#: [id number] : 1970Acct:[id number] Age/Sex: 54 / MADM Date: 07/23/24 Loc: HO.US Attending Dr: Chuy Mcmanus MD Ordering Physician: Chuy Mcmanus MD Date of Service: 07/23/24 Procedure(s): US abdomen comp w elastography Accession Number(s): [id number] cc: Katrin Santoyo MD; Chuy Mcmanus MD [...] 07/23/24 0920 DD/ 0845 TD/TT: 07/23/24 0904 Chief Of Police: us [facility] External Provider IMG US PROCEDURES Final Result * (ABNORMAL) Influenza A (ID NOW Rapid Molecular) (2024 11:09 AM EST) Influenza A Positive( A) Negative, Indeterminate [facility] Swab 2024 11:0 9 AM EST Dhara Cardenas MD POINT OF CARE TEST ENTER/EDIT OR DERABLES Final Result [facility] [address] [place] [address] [phone] * Influenza B (ID NOW Rapid Molecular) (2024 11:08 AM EST) Influenza B Negative Negative, Indeterminate [facility] Swab 2024 11:0 8 AM EST Dhara Cardenas MD POINT OF CARE TEST ENTER/EDIT OR DERABLES Final Result Performing Organization Address City/[facility]/ZIP Co de Phone Number [facility] [address] [place] [phone] * POCT Rapid COVID Ag (2024 11:08 AM EST) Pathologist [facility] Rapid COVID Ag Negative Swab 2024 11:0 8 AM EST Dhara Cardenas MD POINT OF CARE TEST ENTER/EDIT OR DERABLES Final Result * (ABNORMAL) Lipid Panel, Standard (09/19/2023 1:43 PM EDT) Triglycerides 316(H) <150 mg/dL [facility] Comment:Desirable Triglyceri de: less than 150 mg/dLBorderline High Triglyceride 150-199 mg/dLHigh Triglyceride: 200-499 mg/dLVery High Triglyceride: greater than or equal to 5OO mg/dL Cholesterol 164 <200 mg/dL [facility] Comment:Desirable Cholestero l: less than 200 mg/dLBorderline High Cholesterol: 200-239 mg/dLHigh Cholesterol: greater than 239 mg/dL LDL Cholesterol Calculated 60 <100 mg/dL [facility] Comment:Desirable LDL: less than 100 [...] ORDERAB LES Final Result Performing Organization Address [facility]/ZIP Co de Phone Number [facility] [address] [place] [phone] * HIV Ab/Ag ([facility]) (12/06/2022 10:21 AM EDT) [facility] HIV AB/AG Nonreactive Nonreactive [facility] Comment:HIV-1 p24 Ag and/or HIV-1/HIV-2 Ab not detected.A test result that is nonreactive does not exclude thepossibility of exposure to or infection with HIV-1 and/orHIV-2. Nonreactive results in this assay for individualswith prior exposure to HIV-1 and/or HIV-2 may be due toantigen and antibody levels that are below the limit ofdetection of this assay.The [facility] [employer] HIV Ag/Ab Combo assay result andsupplemental assay results should be interpreted inconjunction with the patient's clinical presentation,history and other laboratory results. If the results areinconsistent with clinical evidence, additional testing issuggested to confirm the result. 12/06/2022 10:2 1 AM EDT 12/06/2022 11:17 AM EDT us Elise Stanford [facility] BLOOD ORDERABLES Final Result Performing Organization Address [facility]/ZIP Co de Phone Number [facility] [address] [place] [phone] * Hepatitis Panel, General (12/06/2022 10:21 AM EDT) Hepatitis A IgM Nonreactive Nonreactive [facility] Comment:IgM antibodies to VILLANUEVA V not detected; does not exclude earlyacute or recovered HAV infection. ~Hepatitis B Surface Antibody REACTIVE Nonreactive [facility] Comment:REACTIVE: > 11.99 mI U/mL Hepatitis B Core Antibody Nonreactive Nonreactive [facility] Hepatitis C Antibody Nonreactive Nonreactive [facility] Comment:Antibodies to HCV no t detected; does not exclude early acuteHCV infection. Hepatitis B Surface Ag Negative Negative [facility] Blood 12/06/2022 10:2 1 AM EDT 12/06/2022 11:17 AM EDT us Elise Stanford [facility] [employer] [facility] BLOOD ORDERABLES Final Result [facility] [address] [place] [phone] from Last 3 Months or Most Recently Relevant to Health Maintenance Insurance [facility] C3 DENTAL-[facility] MEDICAID STAND ADULT Care Teams Log Hauler Relationship Specialty Start Date End Date Katrin Santoyo MD [address] [place] [phone] PCP - General Internal Medicine 12/13/22 Edison Vieira MD [address] [place] [address] Pulmonary Disease 04/07/24 Joe Devi MD [address] [facility] 3rd [place] [address] Gastroenterology 04/07/24 Carito Roche DNP [address] [facility], [address] [place] [address] Nephrology 04/07/24 [employer] 04/11/24
--- OUTSIDE RECORDS SUMMARY | 2024-09-23 12:17 | XMS_ITS | Encounter Summary ---
Author Organization [employer] Address [address] [facility] 7t [place] [address] Care Team Providers Care Director Of Donor Relations Name Role Phone Katrin Santoyo MD Primary Care Pro vider Edison Vieira MD Unavailable [phone] Joe Devi MD Unavailable [phone] Encounter Details Date Type Department Care Team (Late st Contact Info) Description 06/21/2023 Abstract [facility] [address] [place], [place] [phone] Katrin Santoyo MD [address] [place] [address] Social History Tobacco Use Types Packs/Day Years [...] Description 10/07/2024 1:00 PM EDT Clinical Support [address] [address] 11/01/2024 1:15 PM EDT Office Visit [address] [address] Katrin Santoyo MD [address] [place] [address] 11/12/2024 9:45 AM EDT Office Visit [address] [address] documented as of this encounter Goals Goal [...] of this encounter Care Teams Director Of Donor Relations Relationship Specialty Start Date End Date Katrin Santoyo MD [address] [place] [address] PCP - General Internal Medicine 8/8/23 Edison Vieira MD [address] [place] [address] Pulmonary Disease 04/07/24 Joe Devi MD [address] 3rd [place] [address] Gastroenterology 04/07/24 Carito Roche DNP [address], [address] [place] [address] Nephrology 04/07/24 [employer] 04/11/24 documented as of this encounter
--- OUTSIDE RECORDS SUMMARY | 2024-09-23 12:17 | XMS_ITS | Encounter Summary ---
Author Organization [facility] Address [address] [place] [address] Care Team Providers Care Utility Forester Name Role Phone Sonal Deep Niko LOPEZ Primary Care Provider Reason for Visit * Reason Comments Medication Refill Encounter Details Date Type Department Care Team (Late st Contact Info) Description 01/04/2021 Refill [facility] Nutrition at [address] [address] Zena Hines PA [address] [place] [phone] Medication Refill Social History Tobacco Use [...] documented as of this encounter Care Teams Utility Forester Relationship Specialty Start Date End Date Deep Pruitt APRN PCP - General 05/22/19 documented as of this encounter
--- OUTSIDE RECORDS SUMMARY | 2024-09-23 12:17 | XMS_ITS | Encounter Summary ---
Author Organization [facility] [employer] and [facility] Address [address] [place] [phone] Care Team Providers Care Stitch Burnisher Name Role Phone Deep Pruitt APRN Primary Care Provider Reason for Visit * Reason Onset Date Comments Medication Refill 10/12/2021 Encounter Details Date Type Department Care Team (Late st Contact Info) Description 10/12/2021 Refill [facility] [address] [facility] [address] [facility] 2nd [place] [address] Taylor Malagon, [facility] [address] [place] [phone] Medication Refill Social History Tobacco Use Types [...] Recorded PHQ-2 Total Score 0 10/12/2021 [facility] of Occupat ional [facility] - Occupational Stress Questionnaire Answer Date [...] documented as of this encounter Care Teams Stitch Burnisher Relationship Specialty Start Date End Date Deep Pruitt APRN PCP - General 05/22/19 documented as of this encounter
--- OUTSIDE RECORDS SUMMARY | 2024-09-23 12:17 | XMS_ITS | Encounter Summary ---
Author Organization [facility] Address [address] [place] [address] Care Team Providers Care Juvenile Detention Officer Name Role Phone Bloom[place]RomeliaDeep Niko LOPEZ Primary Care Provider [phone] Reason for Visit * Reason Onset Date Comments Medication Refill 10/12/2021 Encounter Details Date Type Department Care Team (Late st Contact Info) Description 10/12/2021 Refill [facility] [address] [place] [address] Cecile Oneal, DMD [address] [place] [address] Medication Refill Social History [...] documented as of this encounter Care Teams Juvenile Detention Officer Relationship Specialty Start Date End Date Deep Pruitt APRN PCP - General 05/22/19 documented as of this encounter
--- OUTSIDE RECORDS SUMMARY | 2024-09-23 12:17 | XMS_ITS | Encounter Summary ---
Author Organization [facility] Address [address] [place] [address] Care Team Providers Care Computer Aided Drafter Name Role Phone Deep Pruitt APRN Primary Care Provider Reason for Visit * Reason Comments Medication Refill Encounter Details Date Type Department Care Team ([facility] st Contact Info) Description 12/29/2020 Refill [facility] [address] [place] [address] Deep Pruitt APRN [address] [place] [phone] Medication Refill Social History Tobacco Use [...] Date Recorded PHQ-2 Total Score 0 11/18/2020 [facility] of Occupat [...] as of this encounter Care Teams Computer Aided Drafter Relationship Specialty Start Date End Date Deep Pruitt APRN PCP - General 05/22/19 documented as of this encounter
--- OUTSIDE RECORDS SUMMARY | 2024-09-23 12:17 | XMS_ITS | Encounter Summary ---
Author Organization [employer] Address [address] [facility] 7t [place] [address] Care Team Providers Care Program Rep Name Role Phone Katrin Santoyo MD Primary Care Pro vider Edison Vieira MD Unavailable [phone] Joe Devi MD Unavailable [phone] Reason for Visit * Reason Onset Date Comments Referral 04/05/2023 Encounter Details Date Type Department Care Team (Late st Contact Info) Description 04/05/2023 Telephone [facility] [address] [place], [place] [phone] Katrin Santoyo MD [address] [place] [address] Referral Social History Tobacco Use Types Packs/Day [...] Bhardwaj - 04/06/2023 10:27 AM EST Called [facility] for an update and they stated [...] Gastro made on 04/04/2023 sent to [facility], states that they called facility and facility informs that their missing a summary form. Please contact pt at [phone] Taiwanese Speaker documented in this encounter Plan of Treatment Upcoming Encounters Date Type Department Care Team ([facility] st Contact Info) Description 10/07/2024 1:00 PM EDT Clinical Support [facility] [address] [place] [phone] 11/01/2024 1:15 PM EDT Office Visit [facility] [address] [place] [address] Katrin Santoyo MD [address] [place] [address] 11/12/2024 9:45 AM EDT Office Visit [facility] [address] [place] [address] documented as of this encounter Goals Goal [...] documented as of this encounter Care Teams Program Rep Relationship Specialty Start Date End Date Katrin Santoyo MD [address] [place] [address] PCP - General Internal Medicine 12/13/22 Edison Vieira MD 5 [place] [address] Pulmonary Disease 04/07/24 Joe Devi MD 11 [facility] 3rd [place] [address] Gastroenterology 04/07/24 Carito Roche DNP [address] [facility] [address], [address] [place] [address] Nephrology 04/07/24 [employer] 04/11/24 documented as of this encounter
--- OUTSIDE RECORDS SUMMARY | 2024-09-23 12:17 | XMS_ITS | Encounter Summary ---
Author Organization [facility] Address [address] [place] [address] Care Team Providers Care Alarm Service Technician Name Role Phone Deep Pruitt APRN Primary Care Provider Reason for Visit * Reason Comments Medication Refill Encounter Details Date Type Department Care Team ([facility] st Contact Info) Description 01/29/2021 Refill [facility] [address] [place], [place] [phone] Deep Pruitt APRN [address] [place] [address] Medication Refill Social History Tobacco [...] Date Recorded PHQ-2 Total Score 6 01/21/2021 [facility] of Occupat ional Health [...] documented as of this encounter Care Teams Alarm Service Technician Relationship Specialty Start Date End Date Deep Pruitt APRN PCP - General 05/22/19 documented as of this encounter
--- OUTSIDE RECORDS SUMMARY | 2024-09-23 12:17 | XMS_ITS | Encounter Summary ---
Author Organization [facility] Address [address] [place] [address] Care Team Providers Care An Employee Sponsor Or Advocate And Name Role Phone Deep Pruitt APRN Primary Care Provider [phone] Reason for Visit * Reason Comments Medication Refill Encounter Details Date Type Department Care Team ([facility] st Contact Info) Description 02/01/2021 Refill [facility] [address] [place], [place] [phone] Deep Pruitt APRN [address] [place] [address] Medication Refill Social History Tobacco [...] Date Recorded PHQ-2 Total Score 6 01/21/2021 [facility] of Occupat ional Health [...] documented as of this encounter Care Teams An Employee Sponsor Or Advocate And Relationship Specialty Start Date End Date Deep Pruitt APRN PCP - General 05/22/19 documented as of this encounter
--- OUTSIDE RECORDS SUMMARY | 2024-09-23 12:17 | XMS_ITS | Encounter Summary ---
Author Organization [facility] Address [address] [place] [address] Care Team Providers Care Pantry Goods Maker Name Role Phone Adams RunDeep medina Niko LOPEZ Primary Care Provider Encounter Details Date Type Department Care Team (Late st Contact Info) Description 02/19/2020 Scanned Document [facility] [address] [place], [place] [phone] Arben Fountain, ONLVIA [address] [place] [address] Social History Tobacco Use Types [...] Answer Date Recorded PHQ-2 Score 2 10/02/2019 [facility] of Occupat ional Health - Occupational Stress [...] documented as of this encounter Care Teams Pantry Goods Maker Relationship Specialty Start Date End Date Deep Pruitt APRN PCP - General 05/22/19 documented as of this encounter
--- OUTSIDE RECORDS SUMMARY | 2024-09-23 12:19 | XMS_ITS | Encounter Summary ---
Author Organization [facility] Address [address] [place] [address] Care Team Providers Care Correctional Supervisor Lieutenant Name Role Phone Deep Pruitt APRN Primary Care Provider Reason for Visit * Reason Comments Medication Refill Encounter Details Date Type Department Care Team ([facility] st Contact Info) Description 11/05/2020 Refill [facility] [address] [place] [address] Deep Pruitt APRN [address] [place] [phone] Medication Refill Social History Tobacco Use [...] 07/07/2020 [facility] of Occupat ional [facility] [...] documented as of this encounter Care Teams Correctional Supervisor Lieutenant Relationship Specialty Start Date End Date Deep Pruitt APRN PCP - General 05/22/19 documented as of this encounter
--- OUTSIDE RECORDS SUMMARY | 2024-09-23 12:19 | XMS_ITS | Encounter Summary ---
Author Organization [facility] Address [address] [place] [address] Care Team Providers Care Law Firm Partner Name Role Phone [place]oDeep medina Niko LOPEZ Primary Care Provider [phone] Reason for Visit * Reason Onset Date Comments Medication Refill 09/22/2021 Encounter Details Date Type Department Care Team (Late st Contact Info) Description 09/22/2021 Refill [facility] Nutrition at [address] [address] Zena Hines PA [address] [place] [phone] Medication Refill Social History Tobacco Use [...] is no longer seeing Zena Hines at [facility] for DM mangement. Nate, Katrin documented [...] documented as of this encounter Care Teams Law Firm Partner Relationship Specialty Start Date End Date Deep Pruitt APRN PCP - General 05/22/19 documented as of this encounter
--- OUTSIDE RECORDS SUMMARY | 2024-09-23 12:19 | XMS_ITS | Encounter Summary ---
Author Organization [facility] Address [address] [place] [address] Care Team Providers Care Lastex Thread Winder Name Role Phone Deep Pruitt APRN Primary Care Provider Reason for Visit * Reason Comments Other Appointment Encounter Details Date Type Department Care Team ([facility] Contact Info) Description 10/07/2021 Telephone [facility] [address] [place] [address] Deep Pruitt APRN [address] [place] [address] Other; Appointment Social History Tobacco [...] Date Recorded PHQ-2 Total Score 0 10/07/2021 [facility] of Occupat ional [...] after dropped call ,patient has virtual appt [phone] documented in this encounter Plan of Treatment Not on file documented as of this encounter Visit Diagnoses Not on filedocumented in this encounter Additional Health Concerns Infection Onset Date Last Indicated Resolved Time COVID-19 09/29/2021 09/29/2021 10/19/2021 7:19 PM EDT Assessment Noted Time PHQ-9 Depression Total Score: 0 10/08/19 22 1:27 PM EDT documented as of this encounter Care Teams Lastex Thread Winder Relationship Specialty Start Date End Date Deep Pruitt APRN PCP - General 05/22/19 documented as of this encounter
--- OUTSIDE RECORDS SUMMARY | 2024-09-23 12:19 | XMS_ITS | Encounter Summary ---
Author Organization [facility] Address [address] [place] [address] Care Team Providers Care Director Prospect Name Role Phone Deep Pruitt APRN Primary Care Provider [phone] Reason for Visit * Reason Comments Medication Refill Encounter Details Date Type Department Care Team ([facility] st Contact Info) Description 11/11/2020 Refill [facility] [address] [place] [address] Deep Pruitt APRN [address] [place] [phone] Medication Refill Social History Tobacco Use [...] 07/07/2020 [facility] of Occupat ional [facility] - Occupational Stress Questionnaire Answer Date [...] as of this encounter Care Teams Director Prospect Relationship Specialty Start Date End Date Deep Pruitt APRN PCP - General 05/22/19 documented as of this encounter
--- OUTSIDE RECORDS SUMMARY | 2024-09-23 12:19 | XMS_ITS | Encounter Summary ---
Author Organization [facility] [employer] and [facility] Address [address] [place] [address] Care Team Providers Care Logistics Director Name Role Phone Deep Pruitt APRN Primary Care Provider [phone] Reason for Visit * Reason Onset Date Comments Medication Refill 09/20/2021 Encounter Details Date Type Department Care Team (Late st Contact Info) Description 09/20/2021 Refill [facility] [address] [facility] [address] [facility] 2nd [place] [address] Ricarda Du MD [address] [place] [phone] Medication Refill Social History Tobacco Use Types [...] Date Recorded PHQ-2 Total Score 5 09/14/2021 [facility] of Occupat ional [...] documented as of this encounter Care Teams Logistics Director Relationship Specialty Start Date End Date Deep Pruitt APRN PCP - General 05/22/19 documented as of this encounter
--- OUTSIDE RECORDS SUMMARY | 2024-09-23 12:19 | XMS_ITS | Encounter Summary ---
Author Organization [facility] Address [address] [place] [address] Care Team Providers Care Equipment Lead Name Role Phone Deep Pruitt APRN Primary Care Provider Reason for Visit * Reason Comments Medication Problem Encounter Details Date Type Department Care Team ([facility] Contact Info) Description 10/11/2021 Telephone [facility] [address] [place] [address] Deep Pruitt APRN [address] [place] [address] Medication Problem Social History Tobacco [...] 08 of October Spoke to sissy via wooden tank erector #[id number] (patti) patient states she spoke to the [...] if patient medication can be [facility] [place] [facility] [address] . Best contact: [phone] documented in this encounter Plan of Treatment Not on file documented as of this encounter Visit Diagnoses Not on filedocumented in this encounter Additional Health Concerns Infection Onset Date Last Indicated Resolved Time COVID-19 09/29/2021 09/29/2021 10/19/2021 7:19 PM EDT Assessment Noted Time PHQ-9 Depression Total Score: 0 10/08/19 22 1:27 PM EDT documented as of this encounter Care Teams Equipment Lead Relationship Specialty Start Date End Date Deep Pruitt APRN PCP - General 05/22/19 documented as of this encounter
--- OUTSIDE RECORDS SUMMARY | 2024-09-23 12:19 | XMS_ITS | Encounter Summary ---
Author Organization [facility] [employer] and [facility] Address [address] [place] [phone] Care Team Providers Care Environmental Services Lead Name Role Phone Deep Pruitt APRN Primary Care Provider Reason for Visit * Reason Onset Date Comments Medication Refill 09/22/2021 Encounter Details Date Type Department Care Team (Late st Contact Info) Description 09/22/2021 Refill [facility] at [address] [facility] [address] [facility] 2nd [place] [address] Kaity Harris, LIME KILN WORKER [address] [place] [phone] Medication Refill Social History Tobacco Use Types [...] Date Recorded PHQ-2 Total Score 5 09/14/2021 [facility] - [facility]ational [...] as of this encounter Care Teams Environmental Services Lead Relationship Specialty Start Date End Date Deep Pruitt APRN PCP - General 05/22/19 documented as of this encounter
--- OUTSIDE RECORDS SUMMARY | 2024-09-23 12:20 | XMS_ITS | Encounter Summary ---
Author Organization [facility] Address [address] [place] [address] Care Team Providers Care Tar Worker Name Role Phone Romelia Pruittian Niko LOPEZ Primary Care Provider [phone] Encounter Details Date Type Department Care Team (Late st Contact Info) Description 09/06/2021 Scanned Document [facility] [address] [place] [address] External, Provider Social History Tobacco Use Types [...] Score 2 09/08/2021 [facility] of Occupat ional Health [...] documented as of this encounter Care Teams Tar Worker Relationship Specialty Start Date End Date Deep Pruitt APRN PCP - General 05/22/19 documented as of this encounter
--- OUTSIDE RECORDS SUMMARY | 2024-09-23 12:20 | XMS_ITS | Encounter Summary ---
Author Organization [facility] Address [address] [place] [address] Care Team Providers Care Milk Tester Name Role Phone Deep Pruitt APRN Primary Care Provider Reason for Visit * Reason Comments Medication Refill Encounter Details Date Type Department Care Team ([facility] st Contact Info) Description 09/17/2020 Refill [facility] [address] [place] [address] Deep Pruitt APRN [address] [place] [phone] Medication Refill Social History Tobacco Use [...] Date Recorded PHQ-2 Score 2 07/07/2020 [facility] of Occupat ional [facility] [...]
--- OUTSIDE RECORDS SUMMARY | 2024-09-23 12:20 | XMS_ITS | Encounter Summary ---
Author Organization [facility] Address [address] [place] [address] Care Team Providers Care Storeperson Name Role Phone Romelia Pruittian Niko LOPEZ Primary Care Provider Reason for Visit * Reason Comments Medication Refill Encounter Details Date Type Department Care Team ([facility] st Contact Info) Description 09/16/2021 Refill [facility] [address] [place] [address] Carlos Eduardo Joyner MD [address] [place] [phone] Medication Refill Social History Tobacco Use [...] Date Recorded PHQ-2 Total Score 5 09/14/2021 [facility] of Occupat [...] documented as of this encounter Care Teams Storeperson Relationship Specialty Start Date End Date Deep Pruitt APRN PCP - General 05/22/19 documented as of this encounter
--- OUTSIDE RECORDS SUMMARY | 2024-09-23 12:20 | XMS_ITS | Encounter Summary ---
Author Organization [facility] Address [address] [place] [address] Care Team Providers Care Demonstrator Knitting Name Role Phone Deep Pruitt APRN Primary Care Provider Encounter Details Date Type Department Care Team ([facility] st Contact Info) Description 10/26/2020 Scanned Document [facility] [address] [place], [place] [phone] Deep Pruitt APRN [address] [place] [address] [...] Answer Date Recorded PHQ-2 Score 2 07/07/2020 [facility] of Occupat ional Health - [...] documented as of this encounter Care Teams Demonstrator Knitting Relationship Specialty Start Date End Date Deep Pruitt APRN PCP - General 05/22/19 documented as of this encounter
--- OUTSIDE RECORDS SUMMARY | 2024-09-23 12:20 | XMS_ITS | Encounter Summary ---
Author Organization [facility] Address [address] [place] [address] Care Team Providers Care Clinical Laboratory Assistant Name Role Phone Romelia Pruittian Niko LOPEZ Primary Care Provider Encounter Details Date Type Department Care Team (Late st Contact Info) Description 09/08/2021 Scanned Document [facility] [address] [place] [address] External, Provider Social History Tobacco Use Types [...] Date Recorded PHQ-2 Total Score 2 09/08/2021 [facility] [...] of this encounter Care Teams Clinical Laboratory Assistant Relationship Specialty Start Date End Date Deep Pruitt APRN PCP - General 05/22/19 documented as of this encounter
--- OUTSIDE RECORDS SUMMARY | 2024-09-23 12:20 | XMS_ITS | Encounter Summary ---
Author Organization [email or web address] and [facility] Address [address] [place] [phone] Care Team Providers Care Flarer Name Role Phone Romelia Pruittian Niko LOPEZ Primary Care Provider [phone] Encounter Details Date Type Department Care Team (Latest Contact Info) Description 08/10/2021 Transcribed Orders [facility] [address] [place] [address] Taylor Malagon, PLANT MECH[employer]IC [address] [place] [address] Stage 3a chronic kidney disease [...] Date Recorded PHQ-2 Total Score 4 07/13/2021 [facility] - [...] - 4.5 mg/dL 08/10/2021 10:26 AM EDT [facility] DEPARTMENT OF LABORATORY MEDICINE Blood Venipuncture / Unknown 08/10/2021 9:40 AM EDT 08/10/2021 9:56 AM EDT Taylor Malagon APRN LAB BLOOD ORDERABLES Fauzia guzman Result [facility] DEPARTMENT OF LABORATORY MEDICINE [address] [place] [address] documented in this encounter Visit Diagnoses Diagnosis Stage 3a chronic kidney disease (CKD) (HC Code) (HC CODE)- Primary documented in this encounter Additional Health Concerns Infection Onset Date Last Indicated Resolved Time COVID-19 09/29/2021 09/29/2021 10/19/2021 7:19 PM EDT Assessment Noted Time PHQ-9 Depression Total Score: 11 022 2:28 PM EST documented as of this encounter Care Teams Flarer Relationship Specialty Start Date End Date Deep Pruitt APRN PCP - General 05/22/19 documented as of this encounter
--- OUTSIDE RECORDS SUMMARY | 2024-09-23 12:20 | XMS_ITS | Encounter Summary ---
Author Organization [facility] Address [address] [place] [address] Care Team Providers Care Behaviorist Name Role Phone Deep Pruitt APRN Primary Care Provider [phone] Reason for Visit * Reason Comments Medication Refill Encounter Details Date Type Department Care Team ([facility] st Contact Info) Description 11/11/2020 Refill [facility] [address] [place] [address] Deep Pruitt APRN [address] [place] [phone] Medication Refill Social History Tobacco Use [...] 07/07/2020 [facility] ional [employer] [...] documented as of this encounter Care Teams Behaviorist Relationship Specialty Start Date End Date Deep Pruitt APRN PCP - General 05/22/19 documented as of this encounter
--- OUTSIDE RECORDS SUMMARY | 2024-09-23 12:20 | XMS_ITS | Encounter Summary ---
Author Organization [facility] and [facility] Address [address] [place] [phone] Care Team Providers Care Paperback Machine Operator Name Role Phone Deep Pruitt APRN Primary Care Provider Encounter Details Date Type Department Care Team (Latest Contact Info) Description 09/09/2021 Transcribed Orders [facility] [address] [place] [address] Deep Pruitt APRN [address] [place] [address] Encounter for routine screening for [...] Score 2 09/08/2021 [facility] - Occupational Stress Questionnaire Answer Date [...] Orde r Schedule TSH w/reflex to FT4 ([facility] LMW Q YH) Lab Routine [...] health care facility TSH W/REFLEX TO FT4 ([facility] LMW Q YH) Routine 09/09/2021 [...] prostate Routine general medical examination at a [facility] care facility ALBUMIN/CREATININE PANEL, URINE, RANDOM Routine 09/09/2021 11:01 AM EDT Encounter for routine screening for malformation using ultrasonics Special screening for malignant neoplasm of prostate Routine general medical examination at a [facility] care facility CBC WITH AUTO DIFFERENTIAL Routine 09/09/2021 10:58 AM EDT Encounter for routine screening for malformation using ultrasonics Special screening for malignant neoplasm of prostate Routine general medical examination at a [facility] care facility CBC AND DIFFERENTIAL Routine 09/09/2021 10:58 AM EDT Encounter for routine screening for malformation using ultrasonics Special screening for malignant neoplasm of prostate Routine general medical examination at a [facility] care facility HEMOGLOBIN A1C Routine 09/09/2021 10:58 AM EDT Encounter for routine screening for malformation using ultrasonics Special screening for malignant neoplasm of prostate Routine general medical examination at a health care facility documented in this encounter Results * PSA, total and free (09/09/2021 12:05 PM EDT) Prostate Specific Antigen, Total ([facility]H) 0.578 0.000 - 3.900 ng/mL 09/13/2021 1:44 PM EDT [facility] Prostate Specific Antigen, Free ([facility]H) 0.28 0.00 - 3.90 ng/mL 09/13/2021 1:44 PM EDT [facility] Comment:Prostate Specific An tigen, Free Percentage can not be calculated. PSA, Total value out of appropriate range. Blood Venipuncture / Unknown 09/09/2021 12:05 PM EDT 09/13/2021 10:48 AM EDT Narrative [facility] - 09/13/2021 [...] 2-4 ng/mL range. Deep Pruitt [facility] LAB BLOOD ORDERABLES Final Result Performing Organization Address City/State/[facility] Co de Phone Number [facility]ICINE [address] [place] [address] * (ABNORMAL) Comprehensive metabolic panel (09/09/2021 12:05 PM EDT) Sodium 140 136 - 144 mmol/L 09/09/2021 2:42 PM EDT [facility] Potassium 4.9 3.3 - 5.3 mmol/L 09/09/2021 2:42 PM EDT [facility] Chloride 101 98 - 107 mmol/L 09/09/2021 2:42 PM EDT [facility] CO2 27 20 - 30 mmol/L 09/09/2021 2:42 PM EDT [facility] Anion Gap 12 7 - 17 09/09/2021 2:42 PM EDT [facility] Glucose 148(H) 70 - 100 mg/dL 09/09/2021 2:42 PM EDT [facility] BUN 31(H) 6 - 20 mg/dL 09/09/2021 2:42 PM EDT [facility] Creatinine 1.40(H) 0.40 - 1.30 mg/dL 09/09/2021 2:42 PM EDT [facility] Calcium 9.5 8.8 - 10.2 mg/dL 09/09/2021 2:42 PM T [facility] BUN/Creatinine Ratio 22.1 8.0 - 23.0 0509/2021 2:42 PM EDT [facility] Total Protein 6.4(L) 6.6 - 8.7 g/dL 09/09/2021 2:42 PM EDT [facility] Albumin 3.6 3.6 - 4.9 g/dL 09/09/2021 2:42 PM T [facility] Total Bilirubin 0.2 <=1.2 mg/dL 09/09/2021 2:42 PM T [facility] Alkaline Phosphatase 135(H) 9 - 122 U/L 09/09/2021 2:42 PM T [facility] Alanine Aminotransferase (ALT) 40 9 - 59 U/L 09/09/2021 2:42 PM T [facility] Comment:Calcium dobesilate c an cause artificially low ALT results at therapeutic concentrations Aspartate Aminotransferase (AST) 33 10 - 35 U/L 09/09/2021 2:42 PM T [facility] Globulin 2.8 2.3 - 3.5 g/dL 09/09/2021 2:42 PM T [facility] A/G Ratio 1.3 1.0 - 2.2 09/09/2021 2:42 PM T [facility] AST/ALT Ratio 0.8 See Comment 09/09/2021 2:42 PM T [facility] Comment: Adult with mild [...] >60 mL/min/1.7 3m2 09/09/2021 2:42 PM EDT [facility] Comment: Values under 60mL/min/1.73m2 may indicate CKD if noted for ?? more than 3 months. eGFR is only valid if creatinine is at steady state. eGFR (NON -[place]) 53 >60 mL/min/1.7 3m2 09/09/2021 2:42 PM EDT [facility] Comment: Values under 60mL/min/1.73m2 may indicate CKD if noted for ?? more than 3 months. eGFR is only valid if creatinine is at steady state. Blood Venipuncture / Unknown 09/09/2021 12:05 PM EDT 09/09/2021 12:05 PM EDT Deep Pruitt PEST CONTROL OPERATOR LAB BLOOD ORDERABLES Final Result Performing Organization Address City/[facility]/ZIP Co de Phone Number [facility] [address] [place] [address] * TSH w/reflex to FT4 ( [facility] LMW Q YH) (09/09/2021 12:05 PM EDT) Thyroid Stimulating Hormone 3.640 See Comment ??IU/mL 09/09/2021 2:42 PM EDT [facility] Comment: Male & Non- Females: 0.270-4.200 ??IU/mL 1st Trimester: 0.110-3.480 ??IU/mL 2nd Trimester: 0.320-3.850 ??IU/mL Blood Venipuncture / Unknown 09/09/2021 12:05 PM EDT 09/09/2021 12:05 PM EDT Deep Pruitt PEST CONTROL OPERATOR LAB BLOOD ORDERABLES Final Result Performing Organization Address City/[facility]/ZIP Co de Phone Number [facility] [address] [place] [address] * LDL cholesterol, direct (09/09/2021 12:05 PM EDT) LDL Direct 63 See Comment mg/dL 09/09/2021 2:41 PM EDT [facility] Comment: LDL Cholesterol (mg/dL) ?Adults (>=18 years) ?Children (<18 years) Desirable ?<100 ? <110 Above Desirable ?100-129 ?Not Established Borderline-High ?130-159 ?110- 129 High ? 160-189 ?>=130 Very High? >=190 ?Not Established Blood Venipuncture / Unknown 09/09/2021 12:05 PM EDT 09/09/2021 12:05 PM EDT us Deep Pruitt APRN LAB BLOOD ORDERABLES Final Result Performing Organization Address [facility]/ZIP Co de Phone Number [facility] [address] [place] [phone] [place] [address] * (ABNORMAL) Albumin/creatinine panel, urine, random (09/09/2021 11:01 AM EDT) Albumin, Urine, Random 1,616.3 Reference Range Not Established mg/L 09/09/2021 2:52 PM EDT [facility] Creatinine, Urine, Random 35 Reference Range Not Established mg/dL 09/09/2021 2:52 PM EDT [facility] Albumin/Creatin ine Ratio, Urine, Random 4,684.9(H ) <30.0 mg/g Cr 09/09/2021 2:52 PM EDT [facility] Comment: High albuminuria (formerly microalbuminuria): ??30-300 mg/g Cr Very high albuminuria (overt albuminuria): ? >300 mg/g Cr Urine Collection / Unknown 09/09/2021 11:01 AM EDT 09/09/2021 11:01 AM EDT Deep Pruitt APRN URINE ORDERABLES Final Resu lt Performing Organization Address [facility] Co de Phone Number [address] [address] [phone] * (ABNORMAL) CBC auto differential (09/09/2021 10:58 AM EDT) WBC 13.5(H) 4.0 - 11.0 x1000/??L 09/09/2021 2:16 PM EDT [facility] RBC 5.05 4.00 - 6.00 M/??L 09/09/2021 2:16 PM EDT [facility] Hemoglobin 13.9 13.2 - 17.1 g/dL 09/09/2021 2:16 PM EDT [facility] Hematocrit 46.10 38.50 - 50.00 % 09/09/2021 2:16 PM EDT [facility] MCV 91.3 80.0 - 100.0 fL 09/09/2021 2:16 PM EDT [facility] MCH 27.5 27.0 - 33.0 pg 09/09/2021 2:16 PM EDT [facility] MCHC 30.2(L) 31.0 - 36.0 g/dL 09/09/2021 2:16 PM EDT [facility] RDW-CV 15.1(H) 11.0 - 15.0 % 09/09/2021 2:16 PM EDT [facility] Platelets 298 150 - 420 x1000/??L 09/09/2021 2:16 PM EDT [facility] MPV 13.0(H) 8.0 - 12.0 fL 09/09/2021 2:16 PM EDT [facility] Neutrophils 63.6 39.0 - 72.0 % 09/09/2021 2:16 PM EDT [facility] Lymphocytes 22.5 17.0 - 50.0 % 09/09/2021 2:16 PM EDT [facility] Monocytes 9.2 4.0 - 12.0 % 09/09/2021 2:16 PM EDT [facility] Eosinophils 3.6 0.0 - 5.0 % 09/09/2021 2:16 PM EDT [facility] Basophil 0.4 0.0 - 1.4 % 09/09/2021 2:16 PM EDT [facility] Immature Granulocytes 0.7 0.0 - 1.0 % 09/09/2021 2:16 PM EDT [facility] nRBC 0.0 0.0 - 1.0 % 09/09/2021 2:16 PM EDT [facility] ANC(Abs Neutrophil Count) 8.60(H) 2.00 - 7.60 x 1000/??L 09/09/2021 2:16 PM EDT [facility] Absolute Lymphocyte Count 3.05 0.60 - 3.70 x 1000/??L 09/09/2021 2:16 PM EDT [facility] Monocyte Absolute Count 1.24(H) 0.00 - 1.00 x 1000/??L 09/09/2021 2:16 PM EDT [facility] Eosinophil Absolute Count 0.49 0.00 - 1.00 x 1000/??L 09/09/2021 2:16 PM EDT [facility] Basophil Absolute Count 0.06 0.00 - 1.00 x 1000/??L 09/09/2021 2:16 PM EDT [facility] Absolute Immature Granulocyte Count 0.10 0.00 - 0.30 x 1000/??L 09/09/2021 2:16 PM EDT [facility] Absolute nRBC 0.00 0.00 - 1.00 x 1000/??L 09/09/2021 2:16 PM EDT [facility] Blood Venipuncture / Unknown 09/09/2021 10:58 AM EDT 09/09/2021 10:58 AM EDT Deep Pruitt APRN LAB BLOOD ORDERABLES Final Result [facility] [address] [place] [address] * (ABNORMAL) Hemoglobin A1c (09/09/2021 10:58 AM EDT) Hemoglobin A1c 11.5(H) 4.0 - 5.6 % 09/10/2021 6:36 PM EDT [facility] Comment: Hemoglobin [...] mg/dL 283 mg/dL 09/10/2021 6:36 PM EDT [facility] Comment: Estimated average glucose (eAG) is a calculated value designed to estimate ??the expected average blood glucose level throughout the day from a single ??measurement of ??glycated hemoglobin A1C (HbA1c) and follows the calculation proposed by the [place] [employer] (Diabetes Care 31: 1-6, 2008). It may have less accuracy in children, women and patients with certain erythrocyte disorders. Blood Venipuncture / Unknown 09/09/2021 10:58 AM EDT 09/09/2021 10:58 AM EDT Deep Pruitt APRN LAB BLOOD ORDERABLES Final Result Performing Organization Address City/State/[facility] Co de Phone Number [facility]IC[facility] [address] [place] [address] documented in this encounter Visit Diagnoses Diagnosis [...] documented as of this encounter Care Teams Paperback Machine Operator Relationship Specialty Start Date End Date Deep Pruitt APRN PCP - General 05/22/19 documented as of this encounter
--- OUTSIDE RECORDS SUMMARY | 2024-09-23 12:20 | XMS_ITS | Encounter Summary ---
Author Organization [facility] Address [address] [place] [address] Care Team Providers Care Contact Worker Name Role Phone Deep Pruitt APRN Primary Care Provider Encounter Details Date Type Department Care Team ([facility] st Contact Info) Description 06/21/2022 Scanned Document [facility] [address], [place] [phone] Deep Pruitt APRN [address] [place] [address] Social History Tobacco Use [...] Total Score 2 02/[facility] Questionnaire Answer Date [...] documented as of this encounter Care Teams Contact Worker Relationship Specialty Start Date End Date Deep Pruitt APRN PCP - General 05/22/19 documented as of this encounter
--- OUTSIDE RECORDS SUMMARY | 2024-09-23 12:20 | XMS_ITS | Encounter Summary ---
Author Organization [facility] Address [address] [place] [address] Care Team Providers Care Nursery Attendant Name Role Phone Deep Pruitt APRN Primary Care Provider Reason for Visit * Reason Comments Medication Refill Encounter Details Date Type Department Care Team ([facility] st Contact Info) Description 10/20/2020 Refill [facility] [address], [place] [phone] Deep Pruitt APRN [address] [place] [address] Medication Refill Social History Tobacco [...] Answer Date Recorded PHQ-2 Score 2 07/07/2020 [facility]at [facility] - [...] documented as of this encounter Care Teams Nursery Attendant Relationship Specialty Start Date End Date Deep Pruitt APRN PCP - General 05/22/19 documented as of this encounter
--- OUTSIDE RECORDS SUMMARY | 2024-09-23 12:20 | XMS_ITS | Encounter Summary ---
Author Organization [facility] Address [address] [place] [address] Care Team Providers Care Repulping Supervisor Name Role Phone Deep Pruitt APRN Primary Care Provider [phone] Reason for Visit * Reason Comments Medication Refill Encounter Details Date Type Department Care Team ([facility] st Contact Info) Description 09/23/2020 Refill [facility] [address] [place] [address] Deep Pruitt APRN [address] [place] [phone] Medication Refill Social History Tobacco Use [...] 07/07/2020 [facility] Occupat ional [facility] [place] - Occupational Stress Questionnaire Answer Date Recorded [...] documented as of this encounter Care Teams Repulping Supervisor Relationship Specialty Start Date End Date Deep Pruitt APRN PCP - General 05/22/19 documented as of this encounter
--- OUTSIDE RECORDS SUMMARY | 2024-09-23 12:20 | XMS_ITS | Clinical Summary ---
Author Organization [address] Address [address] [place] [id number] Care Team Providers Care Design Maintenance Engineer Name Role Phone Deep Pruitt APRN [...] edema will order Compression sleeves today from [facility] today, Put on lower legs during [...] of insulin, Duration 99, Feeding difficulty R63.30 47635 mL 06/23/19 Active metFORMIN (GLUCOPHAGE) 1000 mg [...] AM with Arben Fountain DPM at the [facility] -Will f/u with Pt in [...] appointment and was informed he can call [phone] to find a closer time Assessment & Plan (02/19/2022 1:59 PM EDT): -The Pt went to his General Operator and was c/o right kidney pain for [...] worse at night - pathway utilized through [employer], patient eligible for molnupiravir, may benefit [...] Ref. Range 04/07/2020 SPEP Interpretation Unknown ?? Wivdx-0-Sqtfpbfa Latest Ref Range: 0.2 - 0.3 g/dL 0.3 Pwvgn-9-Itqjlwwf Latest Ref Range: 0.5 - 0.9 g/dL 1.1 (H) Interpretation Unknown Comment Only Abnormal Protein Band 2 Latest Ref Range: NONE DETECTED g/dL CANCELED Abnormal Protein Band 3 Latest Ref Range: NONE DETECTED g/dL CANCELED Riub-2-Qvxaqhrv Latest Ref Range: 0.4 - 0.6 g/dL 0.5 Bhzb-0-Iukhzxrl Latest Ref Range: 0.2 - 0.5 g/dL [...] 04/08/2020 17:50 ?? Ref. Range 04/07/2020 Free Payette Latest Ref Range: 3.3 - 19.4 mg/L 35.9 (H) Free Lambda Latest Ref Range: 5.7 - 26.3 mg/L 26.6 (H) Free Payette/Lambda Ratio Latest Ref Range: 0.26 - 1.65 [...] 15:12 Ref. Range 04/07/2020 SPEP Interpretation Unknown Awrcu-3-Zboiqrky Latest Ref Range: 0.2 - 0.3 g/dL 0.3 Mhbek-6-Gdovnftj Latest Ref Range: 0.5 - 0.9 g/dL 1.1 (H) Interpretation Unknown Comment Only Abnormal Protein Band 2 Latest Ref Range: NONE DETECTED g/dL CANCELED Abnormal Protein Band 3 Latest Ref Range: NONE DETECTED g/dL CANCELED Qhhd-7-Gzkaeteh Latest Ref Range: 0.4 - 0.6 g/dL 0.5 Bbhp-2-Usndlbbj Latest Ref Range: 0.2 - 0.5 g/dL [...] 04/08/2020 17:50 ?? Ref. Range 04/07/2020 Free Payette Latest Ref Range: 3.3 - 19.4 mg/L 35.9 (H) Free Lambda Latest Ref Range: 5.7 - 26.3 mg/L 26.6 (H) Free Payette/Lambda Ratio Latest Ref Range: 0.26 - 1.65 [...] of 04/08/2020 17:50 Ref. Range 04/07/2020 Free Payette Latest Ref Range: 3.3 - 19.4 mg/L 35.9 (H) Free Lambda Latest Ref Range: 5.7 - 26.3 mg/L 26.6 (H) Free Payette/Lambda Ratio Latest Ref Range: 0.26 - 1.65 [...] due to type 2 diabetes mellitus (HC C ode) 02/14/2020 Assessment & Plan (03/26/2022 5:26 AM [...] like to speak with his pcp first [phone] Phone Conversation with Pt over the phone: PCP called sao tomean speaking (uncontrolled diabetic) Pt over the phone, [...] Tried to call the Pt using the Georgian Interpretor [id number], V/M was not set up [...] have CC'd Ricarda Du MD, his primary complex director. She has a phone consult with him [...] all the Pt medication bottle be in sao tomean, Pt had a medication (allopurinoL (ZYLOPRIM) 100 mg tablet) error because he can not read in Maur[place]ian, the Pt was prescribed 1/2 tab but [...] appointment to see me at the front end ui developer ?? Latest Reference Range & Units 09/09/21 12/15/21 BUN 7 - 25 mg/dL 31 (H) 29 (H) Creatinine 0.70 - 1.30 mg/dL 1.40 (H) 1.55 (H) BUN/Creatinine Ratio 6 - 22 (calc) 22.1 19 eGFR (NON -[place] Citizen) >60 mL/min/1.73m2 53 eGFR (Afr Amer) >60 [...] Range: 8.0 - 23.0 22.1 eGFR (NON -[place] Citizen) Latest Ref Range: >60 mL/min/1.73m2 53 eGFR [...] Malagon APRN at the Nephrology at [address] [facility], The Renal department is working on getting the Pt a 24 hour HTN monitor to assess the effectiveness of his recent medication changes, used sao tomean interpretor [id number] ?? 07/13/2021 Renal Referral Note:?? Assessment and [...] effectiveness of his recent medication changes, used sao tomean interpretor [id number] 07/13/2021 Renal Referral Note: Assessment [...] given a referral to talk with the [facility] Lbd Teacher for further assessment of his current diet [...] and magnesium supplements that he said a foundry superintendant told him were good for his kidneys. I emphasized that he should stop and that these would do more harm than good, I hope he did stop them! Julio Taylor Assessment & Plan (02/28/2020 4:45 PM EDT): [...] preparation for his first visit with a complex director, Ricarda Du MD on 04/07/2020. Assessment & Plan (02/12/2020 2:18 PM EDT): Pt was recently in the hospital for Kidney issues, the Pt missed a previous Kidney appointment and will ask Pt to reschedule another Kidney appointment Date & Time 02/25/2020 10:00 AM Provider Taylor Malagon APRN Department [facility] at [address] [facility] Nephrology [address] [facility] 2nd Floor [facility] [address] Comment: Pt needs a Kidney referral due [...] 23 (H) 23 (H) 14.7 eGFR (NON -[place] Citizen) Latest Ref Range: >60 mL/min/1.73m2 76 77 [...] (see MRI of Brain from 2017 under [facility] Multimedia -Significant deficits on neurologic exam Memory loss and Left handed weakness -Imaging and prior evaluation -Current blood thinning agents is aspirin -Potential details to include, when relevant: poor GAIT, uses a walker to get around -How the diagnosis was made: Pt lived in [facility] at the time, Under Multimedia [place] see specific file at specific date [id number] Image MRI Result [facility] - MRI BRAIN CVA -09/25/2016 [id number].TIF Image Evaluation [facility]- Left handed weakness note - [...] a letter to be given to the [employer] advising stating that the Pt is disabled and needs help with housing Is there a form to be fill out from the [employer] [facility] advising that the Pt is disabled and needs help with housing t 03/26/21 Oksana Fox to Deep Pruitt LOOM STOP CHECKER Summary: Letters needed by patient This field underwriter met with patient at the clinic today 03.26.21 per nurses request, to assistance with letters that the patient is requesting. This field underwriter spoke to patient and patient is asking [...] Patient is also requesting a letter for [employer] advising that he is disabled. Patient stated that he has already applied for and wants this letter to help him get Housing CCM: 15 minutes 04/11/2021 Deep Pruitt APRN Assessment & Plan (05/31/2020 5:20 PM EST): Pt had a CVA from 2017 and needs Neuro clearance before getting a Colonoscopy Presumed etiology of prior stroke (see MRI of Brain from 2017 under [employer] Significant deficits on neurologic exam Memory loss and Left handed weakness Imaging and prior evaluation Current blood thinning agents is aspirin Potential details to include, when relevant: poor GAIT, uses a walker to get around How the diagnosis was made: Pt lived in [facility] at the time, Under Multimedia in [place] see specific file at specific date [id number].TIF Image MRI Result [facility] - MRI BRAIN CVA -09/25/2016 [id number].TIF Image Evaluation [facility]- Left handed weakness note - [...] is working with his Diabetic Specialist at [facility] and has an appointment next week, will increase his Gababentin to 800 mg PO TID which has helped with his neuropathic pain, Spent 25 mins with Pt using the Court Interpreter Microalbuminuric diabetic nephropathy (HC Code) 09/26/2019 Assessment [...] Ricarda Du MD at the Nephrology at [address] [place] [address] Results for DARREL BHARDWAJ ( ) as [...] ) as of 09/19/2019 07:04 eGFR (NON -[place] Citizen) Latest Ref Range: > OR = 60 [...] for Bariatric surgery and Pt needs a revenue settlements administrator Assessment & Plan (09/10/2021 5:42 PM EDT): Pt has a BMI of 40.4 and is working with the wellness clinic to work on his weight loss plan, putting a referral in for Bariatric surgery and Pt needs a revenue settlements administrator Assessment & Plan (09/26/2019 9:45 AM EDT): Pt has a BMI of 40.4 and is working with the wellness clinic to work on his weight loss plan, putting a referral in for Bariatric surgery and Pt needs a revenue settlements administrator Assessment & Plan (09/09/2019 2:47 PM EDT): [...] whole encounter. The interview was conducted in Georgian which is my pechanga language. I have encouraged Mr. Bhardwaj to contact us with any questions, concerns or clinical changes. Plan: 1. Continue current therapy. 2. No need for supplemental oxygen. Assessment & Plan (12/23/2021 12:10 PM EDT): -The Pt continues to feel like he is constantly SOB and is asking to be put on Oxygen LOOM STOP CHECKER -The Pt was given a list of labs to complete and once done then the Pt will be scheduled appointment with his Ordnance Artificer Helper -The Pt and the Ordnance Artificer Helper will decide together if the pt needs to be on O2 LOOM STOP CHECKER or not 08/18/2021 Pulmonary Note: Assessment: Mr. [...] ways in which he can request an diplomatic interpreter over the phone and I am happy [...] complaints are out of proportion to seemingly gueh-gl-wghurkdl asthma and his dyspnea is likely multifactorial. [...] ways in which he can request an diplomatic interpreter over the phone and I am happy [...] complaints are out of proportion to seemingly jjfr-ro-kaeihuya asthma and his dyspnea is likely multifactorial. [...] in collaboration with Dr. Deep Yo. ?? [facility] Quality Initiatives: ?? Tobacco counseling: Patient [...] eosinophilia evaluation CCM: 10 minutes 01/24/2021 Deep Puritt APRN Assessment & Plan (11/18/2020 3:26 PM EDT): The Pt has received his nebulizer and his asthma is getting better, Pt stated that his Asthma always gets worse with seasonal allergies spent 20 mins with Pt using Georgian Interpretor 1674 Assessment & Plan (11/14/2020 11:15 [...] 7 years for colon cancer screening purposes.??Used Georgian interpretor 8245 Assessment & Plan (06/16/2021 10:23 [...] years for colon cancer screening purposes. Used Georgian interpretor 8245 Assessment & Plan (09/13/2020 7:30 [...] years for colon cancer screening purposes. Used Georgian interpretor 4933 Assessment & Plan (06/24/2020 4:13 PM EST): Pt was informed of the following message and told to call and was asked to call to make a colonoscopy appointment 06/03/20 12:29 PM Message from [facility] at [address] [place] [address] Called patient to cancel pre colon appointment, patient did not answer and there was no voicemail set up. Attempted to call patient x2 in a row and no answer either time. Patient does not need pre colon appointment, only needs to schedule Colonoscopy. No [employer] message sent because at the time of the call when scheduling the pre colon appointment patient stated he does not know how to use the [email or web address] application. Pre colon appointment cancelled. Assessment & [...] year ago the Pt had colonoscopy at [facility] in [facility] and was told to return in a [...] REPORT ? Patient: DARREL BHARDWAJ ?MR #: [id number] ([id number]) ?Submitted by: Hedy Hameed MD STOMACH, BIOPSY [...] disordered breathing. RECOMMENDATIONS / PLAN : -Current [place] [employer] recommendations for treatment of [...] Pt Called patient with Jose Rolon. Nancy #[id number]. Patient said that he has an old ResMed that he received in [place]. He doesn't know his mode or settings. Nor does he know his previous DME Assessment & Plan (09/10/2021 5:40 PM EDT): The Pt has an Sleep Apnea appointment on 09/24/2021 at??4:20 PM with Ryanne Ocasio MD at the Diabetes Center at [address] [place] [address] Assessment & Plan (09/24/2019 3:03 PM EDT): [...] spent 45 mins with Pt with a rv mechanic SLEEP STUDY - [facility] - [phone] Assessment & Plan (09/09/2019 3:22 PM EDT): Pt typically sleep 2.5 hours a night, Pt still [place] to [place] before a sleep apnea clinic in [place] will talk to him, Pt has a BMI of 40.4 and PCP will put a referral in for sleep apnea for Pt today, spent 35 mins with Pt with a rv mechanic Diabetic foot (HC Code) 02/07/2019 Assessment & Plan (06/24/2022 9:27 AM EST): The Pt continues to deal with bilateral foot pain and wears a pair of Diabetic shoes with specification ordered by his Curator Of Collections Doctor Assessment & Plan (05/31/2021 2:00 PM EST): The Pt continues to deal with bilateral foot pain and needs to get a pair of Diabetic shoes with specification ordered by his Curator Of Collections Doctor and will increase Gabapentin from 400 mg PO BID to 800 PO BID Assessment & Plan (01/04/2021 10:02 AM EDT): - recently seen in mid-December by Podiatry- note reviewed Assessment & Plan (10/14/2020 9:29 AM EDT): The Pt continues to deal with bilateral foot pain and needs to get a pair of Diabetic shoes with specification ordered by his Curator Of Collections Doctor see below: 08/26/2020 Podiatry Note: Bilateral [...] Also using his neuropathic compounding formula from [employer] as an adjunctive therapy and likes it [...] is working with his Diabetic Specialist at [facility] and has an appointment next week, will increase his Gababentin to 800 mg PO TID and assess effectiveness in one month Assessment & Plan (02/07/2019 6:48 AM EDT): Pt needs a Podiatry appointment due to toe nails need to be cut and Pt needs establish care with a Curator Of Collections for his annual diabetic foot care Diabetic eye exam (HC Code) 02/07/2019 Assessment & Plan (06/24/2022 9:29 AM EST): The Pt stated today that he saw his Eye Doctor, unable to see event in [facility] Assessment & Plan (09/18/2020 6:10 PM EDT): Pt has complaints of vision changes and he blew a blood vessel on his sclera, 3 years ago the Pt would see his Retina Doctor who did a lazer every 6 month, Pt needs a retinal eye referral 09/18/2020 Jeovanny Lynn: I put a referral in for the Pt and lately the [facility] has not been given dates for appointments [...] from Leah Garcia RN Sent to Deep Pruitt Patient's Sissy Rosales requesting a referral for ophthamology be issued for this patient. Previous referral has and now closed and a new one needs to be issued, to schedule appointment for an eye check up. Ms. Rosales states that patient is diabetic and is having blurry vision as well as heavy eyes, and is in need of seeing eye doctor [facility]. Patient can be reached at [phone]. Ms. Rosales can be reached at the same number [phone]. Thank you Deep Assessment & Plan (05/28/2020 2:38 PM EST): Used Interpretor 7469, Pt is asking for an Diabetic Eye [...] 2019, the Pt needs to call the [facility] [address] [place] [address] Assessment & Plan (10/14/2020 2:13 PM EDT): [...] (01/04/2019 4:02 PM EDT): Pt needs a Georgian speaking Nurse to help him manage his medications, just once a week to make sure everything is ok Assessment & Plan (01/01/2019 6:48 PM EDT): Pt requesting a Visiting Nurse to help with Medication administration Type 2 diabetes mellitus wit h neurologic complication, with long-term current use of insulin (HC Code) 12/10/2018 Overview (12/23/2021): Pt is taking the [...] -Pt will be called biweekly by the [facility] Nurse to review his FBS finger [...] medications -He has been following with the [facility] team and reports taking all of [...] decided [place] area due to [place] closer to family [...] billing issues. He also was supposed to pickling solution maker a Dexa scanner/sensor, but he was unable [...] (DEXCOM G6 SENSOR) device and scanner Asked Supervisor Doping to schedule a 1/2 hour Nurse visit to go over how to use DEXCOM G6 scanner and sensors works The goal is to set an alarm on his phone when his sugars are too high or too low and adjust his food consumption appropriately Latest Reference Range & Units 05/05/22 08/17/22 11/29/22 Hemoglobin A1c 4.0 - 5.6 % 11.5 [...] 200-300 average, checks ACHS -Pt has his [facility] appt on 04/21/2022 at 11:30 AM [...] Pt will continues to go to his [facility] appointments to review his Dexcom G6 numbers and make appropriate medication changes -If all that happens then the Pt can also scan before each meal, switch from taking 30 units of prandial insulin to start a Sliding Scale -Will leave note with Pt's Rate Clerk Passenger that the Pt needs to have Provider use a Court Interpreter due to his poor Mauritanian skills -The Pt has received the Dexcom G6 grill associate and scanner but still does not know [...] Pt will continues to go to his [facility] appointments to review his Dexcom G6 [...] Deep 01/14/2022 Note to Deep Pruitt, From: Angei Mcghee MD Good morning, Is he willing [...] EDT): -Met with Pt and with our [facility] RN who was able to translate [...] 190u??bid 2.Novolog 30??before meals + supplementary sliding [id number]-->4u, 200-249-->6u,??250-299-->8u, 300-349-->10u, >350-->12u 3.continue with ??trulicity 4.5 mg weekly, jardiance 25 mg daily and metformin 1000 mg bid 4.contact us in 1 week to report BG 5.Check BS 4X/day. Keep organized log and bring it next time.??Call [facility] for use of Dexcom [...] yes ?? Recommendations: #Diabetes: 1. Continue with [id number] 190u bid 2.Novolog 30 before meals + supplementary sliding scale ?150-199-->??4??units ?200-249-->??6??units ?250-299-->??8??units ?300-349-->??10units ?>350-->?12 3.continue with trulicity 4.5 mg weekly, jardiance 25 mg daily and metformin 1000 mg bid 4.contact us in 1 week to report BG 5.Check BS 4X/day. Keep organized log and bring it next time. Call [facility] for use of Dexcom CGM 6.Hypoglycemia management: [...] his painful foot issues -Will talk with [facility] Nurse about the Pt and support systems may not be compliant with taking meds and Insulin on a regular basis -Will work on bring the Pt's A1C down, it has been in the 11's for the past year and Pt not wanting to see [facility] or [facility] Diabetic Specialist -Will have to set up [...] the Bariatric Doctor for weight loss -Used Court Interpreter # [id number] -Pt wished he could get his diabetic care restarted at the [facility] -Pt does not want to go to [facility] Diabetic Clinic or the [facility] due to not feeling comfortable [...] Pt needs to be rescheduled with our [facility] Diabetic Clinic with Zena Hines PA, the Pt did not like dealing with [facility] due to not feeling comfortable with the [facility]iders and has had missed multiple appointments The Pt continues to deal with an elevated A1C, Pt wished he could get his diabetic care restarted at the [facility], will refer today ?? Results for DARREL BHARDWAJ ( ) as of 09/10/2021 17:20 ?? Ref. Range 12/10/2018 03/12/2020 01/07/2021 09/09/2021 Hemoglobin A1c Latest Ref Range: <5.7 % of total Hgb 10.8 (H) 10.4 (H) 11.6 (H) 11.3 (H) 09/30/21 10:41 AM Polly Hightower RN Message [...] MD sent at 09/30/2021 Regarding: RE: reschedule senior research engineer appointment I think this is his 3rd [...] Ocasio MD at the Diabetes Center at [address] [place] [address], Pt wished he could get his diabetic care restarted at the [facility], Pt advised to go to [...] LDL 90 01/25/2021 MALCRR 3,278 (H) 09/16/2019 Outpatient/COURT INTERPRETER meds BLOOD GLUCOSE METER ([employer] VERIO FLEX METER) device dulaglutide (TRULICITY) 4.5 mg/0.5 mL PnIj flash glucose (FREESTYLE ORTEGA 14 DAY) scanning reader FREESTYLE ORTEGA 14 DAY sensor kit insulin aspart (NOVOLOG FLEXPEN INSULIN) 100 unit/mL (3 mL) pen insulin regular human CONCENTRATED 500 units/mL (HUMULIN R U-500, CONC, KWIKPEN) injection pen JARDIANCE 25 mg tablet metFORMIN (GLUCOPHAGE) 1000 mg tablet - continues to see [facility] - recent finger stick readings 350, no symptoms of hyperglycemia - discussed with patient taking medications as prescribed as well as changing diet - recommended to reduce carb intake and simple carbs throughout the day and night and see if fasting glucose improved in morning - plans to see [facility] soon Assessment & Plan (04/23/2021 10:36 AM EST): The Pt continues to work with his [facility] Diabetic Specialist and stated that his Finger sticks range between 98-160, Pt needs to get additional labs to assess kidney fx and his diabetes Assessment & Plan (01/08/2021 1:21 PM EDT): The Pt continues to deal with elevated A1C and sees his Rate Clerk Passenger on a regular basis Results for DARREL [...] and has a f/u appointment with his Rate Clerk Passenger on 09/29/2020 08/27/2020 Endocrine referral: Assessment and [...] his blood sugars. Could also consider insulin drug inspector like pioglitazone at low dose. ?? Discussed [...] Krystle Santos RN Spoke with pharmacist at [facility], states if PCP will send scripts for [...] between 7 or 8 and talked through rv mechanic [id number] that the Pt has to have [...] to 110 and send message to his per diem interpreter Isha Carmen APRN??with [facility] Assessment & Plan (05/28/2020 3:01 [...] to 105 and send message to his per diem interpreter Isha Carmen APRN with [facility] ?? Assessment & Plan (04/08/2020 [...] the care of Isha Carmen APRN with [facility] and was last prescribed insulin [...] - 64 pg/mL 64.2 74 (H) Vitamin R02-Buyrruj Latest Ref Range: 20 - 50 ng/mL [...] Diabetic care will be transferred over to [facility] and he has the following appointment: 03/27/2020 11:00 AM with Julia Ceja RD at the Diabetes Center at [address] [facility] Assessment & Plan (02/14/2020 4:56 PM EDT): Patient called and stated he's a diabetic and was advised to speak with his pcp Deep if anything was wrong. He stated he woke up with a small cut in right foot on the small toe. I did offer the CC but stated he would like to speak with his pcp first [phone] (sao tomean speaking) Assessment & Plan (11/13/2019 7:10 PM [...] - 22 (calc) 23 (H) eGFR (NON -[place] Citizen) Latest Ref Range: > OR = 60 [...] Pt is currently seeing our Diabetic Specialist LOOM STOP CHECKER at [facility], talking with LOOM STOP CHECKER on phone the Pt has developed an [...] 10, Pt needs to meet with the [facility] Nurse with the goal to bring [...] will continue to see Diabetic Clinic at [facility] for additional medication adjustments and will see [...] will continue to see Diabetic Clinic at [facility] and re-evaluate Pt care in one month [...] 6-8 weeks to be seen by his laborer hoisting Dr. Newberry. ?? Attending Addendum: I have [...] that he is on this. I contacted [facility] pharmacy and they reported that on [...] call back to Fani Heath PharmD at [phone] 08/04/21 Fani Heath PharmD called Pt Called patient for scheduled pharmacist HTN visit. I was not able to reach patient and LVM requesting a call back. ID [id number] assisted call. Of note, appears patient was [...] Dr. Newberry and should be visible in [employer]. We would like you to please call [...] pain and dyspnea # h/o CVA (NOT [place] -- historical charting error) # Dyslipidemia with [...] pain and dyspnea # h/o CVA (NOT [place] -- historical charting error) # Dyslipidemia with [...] basis by his , will ask our [facility] Nurse to call Pt and verify [...] basis by his , will ask our [facility] Nurse to call Pt and verify [...] recent creatinine/potassium from 01/07 stable, recheck in CMP this week Assessment & Plan (01/04/2021 9:26 [...] in one week to manage HTN, used rn bariatric [id number], Pt denies experiencing any pain or tightness [...] EST): When the Pt was admitted to [facility] for NICOLAS they had stopped his Lisinopril [...] medication up weekly, spent [address] Interpreter [id number], will f/u with Pt in one month [...] needs to get all his meds in [place] and has an appointment on 02/24/2020 02/24/2020 ??3:40 PM Provider Deep Pruitt APRN [facility] Assessment & Plan (02/22/2020 5:19 AM EDT): I see that Losartan help protect the kidneys from damage due to diabetes, I will discontinue the atenolol and start him at Losartan 25 mg and slowly titrate him up and the Pt needs to get all his meds in [place] and has an appointment on 02/24/2020 02/24/2020 ??3:40 PM Provider Deep Pruitt APRN [facility] Assessment & Plan (03/16/2019 6:10 AM EST): [...] lisinopril. Will discuss next visit. Hyperlipidemia associated wi th type 2 diabetes mellitus (HC Code) 12/10/2018 Assessment & Plan (06/16/2021 10:23 AM [...] (calc) 6.9 (H) The ASCVD Risk score ([place] WOODWARD Jr., et al., 2013) failed to calculate for the following reasons: The patient has a prior FL or stroke diagnosis Assessment & Plan (12/18/2018 [...] to call Pt with results seen below (Georgian only please) -And let him know that his UTI results were negative and there is no reason for antibiotics 09/08/2021 PCP Note: Pt c/o burning with urination for the past 2 day, will ask Pt to do a urine culture before prescribing an Antibiotic medication used Georgian interpretor [id number] 09/10/2021 PCP Addendum Note: The Pt has [...] years ago the Pt had colonoscopy at [facility] in [facility] and was told to return in a year for further surveillance because he had several polyps removed, the concern is that the Pt had a CVA x 2 in 2017 and need Neuro clearance and the Neuro referral was put in today Assessment & Plan (11/13/2019 7:05 PM EDT): Pt had a Colonoscopy done in [facility] in [facility] one year ago and was told to [...] AM EDT): 01/02/2020 the 49 yo male (Georgian speaking only) with a BMI of 39.6, last A1C Dec 2019 increased to 13.7, in 2018 the Pt had a right sided stroke (minimal residual speech and walking issues) and is working with our Diabetic LOOM STOP CHECKER Specialist to bring his sugars down, Pt [...] Plan (11/13/2019 7:08 PM EDT): Used a Court Interpreter 1301 for the entire 25 min visit, Pt [...] with Pt in 1 weeks, used a Court Interpreter 175 throughout the visit -10/23/2019 the Pt again [...] with Pt in 2 weeks, used a Court Interpreter Propio through out the visit Assessment & [...] (H) -Pt will be referred to the [facility] Lbd Teacher to assess if his current diet is [...] Perla Rice RN message to Deep Pruitt LOOM STOP CHECKER Call was returned to patient and his [...] input from his primary care physician and complex director would be helpful. Considerations would include: stopping amlodipine, increasing diuretics, re-assessing labs for kidney function (e.g. is proteinuria worsening), and dietary interventions. Also counseled patient that weight loss would likely be helpful. I think his crochet beader can be helpful with managing his midfoot [...] input from his primary care physician and complex director would be helpful. Considerations would include: stopping amlodipine, increasing diuretics, re-assessing labs for kidney function (e.g. is proteinuria worsening), and dietary interventions. Also counseled patient that weight loss would likely be helpful. I think his crochet beader can be helpful with managing his midfoot [...] plan for regular follow up with your crochet beader, primary care physician, and complex director ?? Follow-up: as needed with me ?? Other interventions: recommend keeping the legs elevated when sitting (try to get feet above the level of the heart to get the fluid to come down; also recommend new pair of custom graduated compression stockings - wear daily - please call [facility] for an appointment to be measured for the new stockings so they fit you well. [facility] [address] [place] [phone] , PCP Notes: Will stop Amlodipine 5 mg PO QD and start Pt on Spirolactone 25 mg PO QD and assess in 2 weeks if Spirlactatone needs to be increased to 25 mg BID Will fax to [facility] order for Compression stocking and put contact info in AVS for the Pt to call and arrange for sizing CCM: 10 minutes 12/29/2020 Deep Pruitt APRN Assessment & Plan (06/24/2020 3:44 PM EST): 06/13/2020 the Pt had 2 pairs of Knee high compression stockings ordered and sent to [facility] and the Pt has to call [facility] so he can be measured and then pick them up when they arrive Assessment & Plan (06/13/2020 7:10 AM EST): Pt continues to deal with bilateral lower extremity edema will order Compression sleeves today from [facility] today, Put on lower legs during the day and take off at night, and wash and let dry and put on 2nd pair on the following day for Edema, lower extremity R60.0, will send to [facility] today Assessment & Plan (05/26/2020 5:58 [...] in 2 days at his next appointment Georgian Interpretor #[id number] CCM: 20 minutes 05/26/2020 Deep [...] MD Department Ambulatory Surgical Specialties - Vascular [facility] [address] [facility] [address] [address] Assessment & Plan (01/30/2020 4:18 PM EDT): [...] EST): When the Pt was admitted to [facility] for [facility]ICOLAS they had stopped his Lisinopril [...] needs to get all his meds in [place], 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 More than 4 times per year [...] Date Recorded PHQ-2 Total Score 2 02/17/2022 [facility] of Occupat ional Health - Occupational Stress [...] your living situation today? I have a [facility] place to live 05/19/2022 Sex and [...] 9:01 AM EDT Screening for prostate cancer MA PROPHYLAXIS - ADULT Routine 08/10/2021 10:45 AM EDT Encounter for dental exam and cleaning w/o abnormal findings MA BITEWINGS - FOUR RADIOGRAPHC IMAGES Routine 07/05/2021 10:30 AM EST Encounter for dental examination MA PERIODIC ORAL EVALUATION EST PT Routine 07/05/2021 10:30 AM EST Encounter for dental examination Oral frictional keratosis Partially edentulous mandible, unspecified edentulism class Secondary dental caries associated with failed or defective dental muslim Dental caries on smooth surface penetrating into [...] Results * (ABNORMAL) POCT HgbA1c, total CPT: 83540 (06/23/2022 4:21 PM EST) Pathologist [facility] Hemoglobin A1C, POC 10.6 4.0 - 6.0 % [facility] Test Lot Number [id number] [facility] Test Lot Exp Date 09/18/22 Date Format: MM/DD/YYYY [facility] Blood specimen (specimen) 06/23/2022 4:21 PM EST Deep Pruitt APRN POINT OF CARE TEST ORDERABL ES Final Result [facility] * (ABNORMAL) LDL cholesterol, direct (03/14/2022 [...] Comment Performing Lab: ?Site ID: [id number] ?Name: [facility] ?Address: [address] [place] [address], [facility] [place] [address] ?Director: Yadira Bowman M.D. Deep Pruitt APRN LAB BLOOD ORDERABLES Final Result [facility] [address] [place] [address] * (ABNORMAL) Albumin/creatinine panel, urine, random (02/15/2022 2:02 PM EDT) Albumin, Urine, Random 1,885.3 Reference Range Not Established mg/L 02/15/2022 3:42 PM EDT [facility] DEPARTMENT OF LABORATORY MEDICINE Creatinine, Urine, Random 60 Reference Range Not Established mg/dL 02/15/2022 3:42 PM EDT [facility] DEPARTMENT OF LABORATORY MEDICINE Albumin/Creatin ine Ratio, Urine, Random 3,168.6(H ) <30.0 mg/g Cr 02/15/2022 3:42 PM EDT [facility] DE[facility]MENT OF LABORATORY MEDICINE Comment: Moderately increased albuminuria (formerly microalbuminuria): ??30-300 mg/g Cr Significantly increased albuminuria (overt albuminuria): ? >300 mg/g Cr Urine Collection / Unknown 02/15/2022 2:02 PM EDT 02/15/2022 2:59 PM EDT Yue Dominguez REAL ESTATE SITE ANALYST URINE ORDERABLES Final Res ult [facility] DEPARTMENT OF LABORATORY MEDICINE [address] [place] [address] * PSA, total (Q) (09/09/2021 9:01 AM EDT) Prostate Specific Antigen Total 0.44 < OR = 4.00 ng/mL [facility] Comment: The total PSA value from this assay system is standardized against the WHO standard. The test result will be approximately 20% lower when compared to the equimolar-standardized total PSA ([place]). Comparison of serial PSA results should be [...] Comment Performing Lab: ?Site ID: [id number] ?Name: [facility] ?Address: [address] [place] [address], [place] [address] ?Director: Yadira Bowman M.D. us Deep Pruitt REAL ESTATE SITE ANALYST LAB BLOOD ORDERABLES Final Result [facility] [address] [place], [place] [address] * Colonoscopy (09/03/2020 10:16 AM EDT) [facility] Colonoscopy [facility] Endoscopy Patient Name: Darerl Bhardwaj ? Procedure Date: 09/03/2020 10:16 AM ?Date of : 1970 Age: 50 ? Admit Type: Outpatient Gender: Male ?CSN #: [id number] Note Status: Finalized ?Procedure Date no Time: [...] bowel preparation was evaluated using the BBPS ([place] ? Bowel Preparation Scale) with scores of: [...] Procedure Code(s): ?? --- Professional --- ? 84890, Colonoscopy, flexible; with biopsy, single or ? multiple Diagnosis Code(s): ?? --- Professional --- ? Z86.010, Personal history of colonic polyps ? D12.0, Benign neoplasm of cecum CPT copyright 2018 [employer] [employer]. All rights reserved. The codes documented in this report are preliminary and upon painting machine operator review may be revised to meet current compliance requirements. Attending Participation: ? I personally performed the entire procedure. ? Nolan Anguianor, 09/03/2020 11:04:33 AM This report has been signed electronically. Number of Addenda: 0 Note Initiated On: 09/03/2020 10:16 AM Scope Withdrawal Time: 0 hours 10 minutes 36 seconds Total Procedure Duration: 0 hours 16 minutes 57 seconds Estimated Blood Loss: ? Estimated blood loss: none. Scope In: 10:41:36 AM Scope Out: 10:58:[address] [facility] 09/03/2020 10:1 6 AM EDT Provider Not In System GI PROCEDURE ORDERABLES F inal Result [facility] * Hepatitis C Ab with reflex to HCV PCR (02/06/2020 7:18 AM EDT) Hepatitis C Antibody Negative Negative 02/06/2020 4:21 PM EDT [facility] DEPARTMENT OF LABORATORY MEDICINE Comment:A negative result do es not exclude HCV infection, since antibodies are not detectable for 4-8 weeks after initial infection, or may not develop in compromised hosts. In high-risk individuals, repeat antibody testing in 2 months and/or HCV RNA PCR should be considered. Blood Venipuncture / Unknown 02/06/2020 7:18 AM EDT 02/06/2020 8:06 AM EDT Jordyn Hills REAL ESTATE SITE ANALYST LAB BLOOD ORDERABLES Fauzia l Result [facility] DEPARTMENT OF LABORATORY MEDICINE [address] [place] [address] * HIV 1/2 ag/ab, w/reflexes (Q) (12/10/2018 [...] ?? For additional information please refer to http://education.Consano/faq/YML988 (This link is being provided for informational/ educational purposes only.) The performance of this assay has not been clinically validated in patients less than 2 years old. Blood 12/10/2018 10:3 2 AM EDT 12/10/2018 10:32 AM EDT Carlos Eduardo Joyner MD LAB BLOOD ORDERABLES Fi nal Result [facility] [address] from Last 3 Months or Most Recently Relevant to Health Maintenance Insurance [place] [address] [place] [address] MED[place]ID [place] Advance Directives * Full ACLS (Latest Code Status on File) Date Activated Date Inactivated Comments 02/04/2020 9:46 PM 02/07/2020 8:23 PM Question Answer Comments With Whom was the Code Status Discussed? Patient Care Teams Design Maintenance Engineer Relationship Specialty Start Date End Date Deep Pruitt APRN PCP - General 05/22/19
--- OUTSIDE RECORDS SUMMARY | 2024-09-23 12:20 | XMS_ITS | Encounter Summary ---
Author Organization [employer] Address [address] [facility] [address] [place] [address] Care Team Providers Care Easement Worker Name Role Phone Katrin Santoyo MD Primary Care Pro vider Edison Vieira MD Unavailable [phone] Joe Devi MD Unavailable [phone] Reason for Referral * Consultation (Urgent) - Pending Review Specialty Diagnoses / Procedures Referred By Contac t Referred To Contact Podiatry Diagnoses Type 2 diabetes mellitus with stage 3 chronic kidney disease, with long-term current use of insulin, unspecified whether stage 3a or 3b CKD (CMS/HCC) Bilateral foot pain Billy Martínez MD [address] [place] [address] Phone: tel: fax: Referral ID Status Reason Start Date Expiration Date Visits Requested Visits Authorized [id number] Pending Review Specialty Services Required 09/23/2024 09/23/2025 1 1 Reason for Visit * Reason Comments Leg Pain Encounter Details Date Type Department Care Team (Late st Contact Info) Description 09/19/2024 1:20 PM EDT Office Visit [facility] [address] [place] [address] [phone] Billy Martínez MD [address] [place] [address] [phone] Bilateral foot pain (Primary Dx); Type 2 [...] 1:07 PM EDT documented in this encounter Progress Notes * Billy Martínez MD - 09/19/2024 1:20 PM EDT Subjective History was provided by the patient. Darrel Cortes is a 54 y.o. male who presents for evaluation of 3-day duration of bilateral mid-foot pain. Denies any trauma or fall. History of gout. Underlying T2 DM, followed by Endocrine. Currently on a high dose of Humulin BID (175 units & 250 units), Jardiance, and Zepbound. Also reports elevated BS since yesterday >350 (typically at 100-250). Has underlying chronic pedal edema. Last BUN/Cr 35/3.01 (04/2024). Last Hgb A1c 10.2 (08/2024). Objective Vitals: 09/19/24 1307 09/19/24 1313 BP: (!) 160/98 134/78 BP Location: Left arm Left arm Patient Position: Sitting Sitting BP Cuff Size: Large adult Large adult Pulse: 104 Resp: 17 Temp: 97.5 ??F (36.4 ??C) TempSrc: Temporal SpO2: 98% Weight: 266 lb 12.8 oz (121 kg) Physical Exam Constitutional: General: He is not in acute distress. Appearance: Normal appearance. He is not ill-appearing, toxic-appearing or diaphoretic. HENT: Head: Normocephalic and atraumatic. Right Ear: External ear normal. Left Ear: External ear normal. Mouth/Throat: Mouth: Mucous membranes are moist. Pharynx: Oropharynx is clear. Eyes: Extraocular Movements: Extraocular movements intact. Cardiovascular: Rate and Rhythm: Normal rate and regular rhythm. Heart sounds: Normal heart sounds. Pulmonary: Effort: Pulmonary effort is normal. Breath sounds: Normal breath sounds. Musculoskeletal: General: Tenderness (bilateral mid-foot tenderness without deformity; no calf tenderness; negative Casey's) present. Cervical back: Neck supple. Right lower leg: No edema. Left lower leg: No edema. Skin: Coloration: Skin is not jaundiced. Comments: There are multiple maculo-papular rashes ,scratching stigma present in dorsum of both upper extremities , rash not seen in any other part of the skin Neurological: General: No focal deficit present. Mental Status: He is alert and oriented to person, place, and time. Psychiatric: Mood and Affect: Mood normal. Behavior: Behavior normal. Darrel was seen today for leg pain. Diagnoses and all orders for this visit: Bilateral foot pain (Primary) - Uric acid; Future - Basic Metabolic Panel; Future - CBC auto differential; Future - XR Foot 3+ Views Left; Future - XR Foot 3+ Views Right; Future - Referral to Podiatry; Future Type 2 diabetes mellitus with stage 3 chronic kidney disease, with long-term current use of insulin, unspecified whether stage 3a or 3b CKD ([facility]) - POCT glucose manually resulted - Referral to Podiatry; Future Patient presents to [facility] due to bilateral feet pain (mostly in the mid-foot areas) Symptom onset 3 days ago Denies F/C Denies trauma, fall, or change in activity level Underlying gout without recent flare ups Will avoid Colchicine given estimated GFR of 22 Avoid corticosteroid given markedly elevated BS Followed by Neprhology Concerning for Charcot foot (previous foot X-ray revealed multiple focal erosions) Check X-ray Bilateral Feet Check Uric Acid, CBC & BMP Will refer to Podiatry Indications for UC/ER use reviewed Advised to contact the clinic if persistent or worsening symptoms documented in this encounter Plan of Treatment Upcoming Encounters Date Type Department Care Team (Late st Contact Info) Description 10/07/2024 1:00 PM EDT Clinical Support [address] [address] 11/01/2024 1:15 PM EDT Office Visit [address] [address] Katrin Santoyo MD [address] [place] [phone] 11/12/2024 9:45 AM EDT Office Visit [address] [address] Scheduled Orders Name Type Priority Associated Diagnoses Orde r Schedule CBC auto differential Lab Routine Bilateral foot pain Expected: 09/19/2024 (Approximate), Expires: 09/19/2025 XR Foot 3+ Views Left Imaging Routine Bilateral foot pain Expected: 09/19/2024, Expires: 09/19/2025 XR Foot 3+ Views Right Imaging Routine Bilateral foot pain Expected: 09/19/2024, Expires: 09/19/2025 Scheduled Referrals Name Type Priority Associated Diagnoses Orde r Schedule Referral to Podiatry Outpatient Referral Urgent Type 2 diabetes mellitus with stage 3 chronic kidney disease, with long-term current use of insulin, unspecified whether stage 3a or 3b CKD ([facility]/HCC) Bilateral foot pain Expected: 09/23/2024 (Approximate), Expires: 09/23/2025 documented as of this encounter Goals Goal Patient Goal Type Associated Problems Recent Progress Patient-Stated? Author Blood Pressure < 140/90 Blood Pressure 134/78(2024 1:13 PM EDT) No Eve Guzman, PharmD Hemoglobin A1c < 7 Result Component 10.2(08/23/19 1:13 PM EDT) No Eve Guzman PharmD documented as of this encounter Procedures Procedure Name Priority Date/Time Associated Diagnosis Comments URIC ACID Routine 09/19/2024 2:44 PM EDT Bilateral foot pain BASIC METABOLIC PANEL Routine 09/19/2024 2:44 PM EDT Bilateral foot pain POCT GLUCOSE Routine 09/19/2024 1:18 PM EDT Type 2 diabetes mellitus with stage 3 chronic kidney disease, with long-term current use of insulin, unspecified whether stage 3a or 3b CKD ([facility]/HCC) documented in this encounter Results * (ABNORMAL) Basic Metabolic Panel (09/19/2024 2:44 PM EDT) Sodium 139 135 - 145 mmol/L [facility] Potassium 3.7 3.3 - 5.1 mmol/L [facility] Chloride 108 96 - 108 mmol/L [facility] Carbon Dioxide 24 22 - 29 mmol/L [facility] Anion Gap 11(L) 12 - 20 [facility] Urea Nitrogen (BUN) 37(H) 9 - 16 mg/dL [facility] Creatinine, Serum 4.53(HH) 0.5 - 1.4 mg/dL [facility] Comment:Critical value for t est(s): SHIRA Results called to agatha back by: DR. FLORENCIO CARDONA Person calling: NGUYENQDate:09/19/24 Time:1654 Estimated Glomerular Filt Rate 14 [facility] Comment:Chronic Kidney Disea se: Estimated GFR < 60 mL/min/1.78n2Gopphz Kidney Disease: Estimated GFR < 15 mL/min/1.73m2 Glucose 280(H) 60 - 115 mg/dL [facility] Calcium 8.4 8.4 - 10.2 mg/dL [facility] Blood Venous blood specimen / Unknown 09/19/2024 2:44 PM EDT 09/19/2024 4:10 PM EDT us Billy Martínez MD LAB BLOOD ORDERABLES Final Resul t Performing Organization Address City/[facility] Co de Phone Number [facility] [address] [place] [phone] * Uric acid (09/19/2024 2:44 PM EDT) Uric Acid 6.3 3.4 - 7.0 mg/dL [facility] Blood Venous blood specimen / Unknown 09/19/2024 2:44 PM EDT 09/19/2024 4:10 PM EDT us Billy Martínez MD LAB BLOOD ORDERABLES Final Resul t Performing Organization Address [facility] Co de Phone Number [facility] [address] [place] [phone] * (ABNORMAL) POCT glucose manually resulted [...] documented as of this encounter Care Teams Easement Worker Relationship Specialty Start Date End Date Katrin Santoyo MD [address] [place] [phone] PCP - General Internal Medicine 12/13/22 Edison Vieira MD [address] [place] [address] Pulmonary Disease 04/07/24 Joe Devi MD [address] [place] [address] 3rd [place] [address] Gastroenterology 04/07/24 Carito Roche DNP [address], [address] [place] [address] Nephrology 04/07/24 [employer] 04/11/24 documented as of this encounter
--- OUTSIDE RECORDS SUMMARY | 2024-09-23 12:20 | XMS_ITS | Encounter Summary ---
Author Organization [facility] Address [address] [place] [address] Care Team Providers Care Campus Police Officer Name Role Phone Romelia Pruittian Niko LOPEZ Primary Care Provider Encounter Details Date Type Department Care Team (Late st Contact Info) Description 08/09/2021 Scanned Document [facility] [address] [place] [address] External, Provider Social History Tobacco Use Types [...] Date Recorded PHQ-2 Total Score 4 07/13/2021 [facility] of Occupat [...] as of this encounter Care Teams Campus Police Officer Relationship Specialty Start Date End Date Deep Pruitt APRN PCP - General 05/22/19 documented as of this encounter
--- OUTSIDE RECORDS SUMMARY | 2024-09-23 12:20 | XMS_ITS | Encounter Summary ---
Author Organization [facility] [employer] [facility] Address [address] [place] [phone] Care Team Providers Care Brush Maker Name Role Phone Deep Pruitt APRN Primary Care Provider Encounter Details Date Type Department Care Team (Late st Contact Info) Description 08/05/2021 Orders Only [facility] [address] [place] [address] Carolyn Marin MD [address] [place] [phone] Essential hypertension Social History Tobacco Use [...] Date Recorded PHQ-2 Total Score 4 07/13/2021 [facility] - [...] documented as of this encounter Care Teams Brush Maker Relationship Specialty Start Date End Date Deep Pruitt APRN PCP - General 05/22/19 documented as of this encounter
--- OUTSIDE RECORDS SUMMARY | 2024-09-23 12:20 | XMS_ITS | Encounter Summary ---
Author Organization [facility] Address [address] [place] [address] Care Team Providers Care Banking Services Advisor Name Role Phone Deep Pruitt APRN Primary Care Provider Encounter Details Date Type Department Care Team (Latest Contact Info) Description 09/13/2021 Transcribed Orders [facility] Specimens [address] [place] [address] Deep Pruitt APRN [address] [place] [address] Encounter for routine screening for [...] Date Recorded PHQ-2 Total Score 5 09/14/2021 [facility] [...] - 3.900 ng/mL 09/13/2021 1:44 PM EDT [facility] DEPARTMENT OF LABORATORY MEDICINE Prostate Specific Antigen, Free (YH) 0.28 0.00 - 3.90 ng/mL 09/13/2021 1:44 PM EDT [facility] DEPARTMENT OF LABORATORY MEDICINE Comment:Prostate Specific An tigen, Free Percentage can not be calculated. PSA, Total value out of appropriate range. Blood Venipuncture / Unknown 09/09/2021 12:05 PM EDT 09/13/2021 10:48 AM EDT Narrative [facility] DEPARTMENT OF LABORATORY MEDICINE - 09/13/2021 [...] Pruitt APRN LAB BLOOD ORDERABLES Final Result [facility] DEPARTMENT OF LABORATORY MEDICINE [address] [place] [address] documented in this encounter Visit Diagnoses Diagnosis [...] documented as of this encounter Care Teams Banking Services Advisor Relationship Specialty Start Date End Date Deep Pruitt APRN PCP - General 05/22/19 documented as of this encounter
--- OUTSIDE RECORDS SUMMARY | 2024-09-23 12:20 | XMS_ITS | Encounter Summary ---
Author Organization [facility] Address [address] [place] [address] Care Team Providers Care Lease Attendant Name Role Phone Deep Pruitt APRN Primary Care Provider Reason for Visit * Reason Comments Medication Refill Encounter Details Date Type Department Care Team ([facility] st Contact Info) Description 09/16/2021 Refill [facility] [address] [place] [address] Deep Pruitt APRN [address] [place] [address] Medication Refill Social History Tobacco Use [...] Date Recorded PHQ-2 Total Score 5 09/14/2021 [facility] Occupat ional [...] documented as of this encounter Care Teams Lease Attendant Relationship Specialty Start Date End Date Deep Pruitt APRN PCP - General 05/22/19 documented as of this encounter
--- OUTSIDE RECORDS SUMMARY | 2024-09-23 12:20 | XMS_ITS | Encounter Summary ---
Author Organization [facility] Address [address] [place] [address] Care Team Providers Care Brass Wind Instruments Tube Bender Name Role Phone Deep Pruitt APRN Primary Care Provider Reason for Visit * Reason Comments Other Advice Only Encounter Details Date Type Department Care Team ([facility] Contact Info) Description 09/28/2021 Telephone [facility] [address] [place] [address] Deep Pruitt APRN [address] [place] [address] Other; Advice Only Social History [...] Date Recorded PHQ-2 Total Score 5 09/14/2021 [facility] [...] be given because his underlying condition. Patient [phone] documented in this encounter Plan of Treatment Not on file documented as of this encounter Visit Diagnoses Not on filedocumented in this encounter Additional Health Concerns Infection Onset Date Last Indicated Resolved Time COVID-19 09/29/2021 09/29/2021 10/19/2021 7:19 PM EDT Assessment Noted Time PHQ-9 Depression Total Score: 7 09/15/19 22 10:31 AM EDT documented as of this encounter Care Teams Brass Wind Instruments Tube Bender Relationship Specialty Start Date End Date Deep Pruitt APRN PCP - General 05/22/19 documented as of this encounter
[2024-09-23 12:58] LABS: MANUAL DIFF FLAG NO
[2024-09-23 13:24] LABS: Basophils Absolute Auto 0.1 X10*3/uL (0.0-0.2); Basophils Percent Auto 0.5 % (0-2); Eosinophils Absolute Auto 0.6 X10*3/uL (0.0-0.4); Eosinophils Percent Auto 4.4 % (0-4); Hematocrit 47.9 % (42.0-52.0); Hemoglobin 15.2 g/dl (14.0-18.0); Imm Gran Abs Auto 0.09 X10*3/uL (0.00-0.03); Imm Gran Pct Auto 0.7 % (0.0-0.4); Lymphocytes Absolute Auto 2.2 X10*3/uL (1.2-4.9); Lymphocytes Percent Auto 16.5 % (20-40); Mean Corpuscular HGB Conc 31.7 g/dl (31.0-36.0); Mean Corpuscular Volume 88.2 fL (80.0-98.0); Mean Platelet Volume 12.5 fL (9.4-12.4); Monocytes Absolute Auto 1.1 X10*3/uL (0.1-1.2); Monocytes Percent Auto 8.2 % (2-11); Neutrophils Absolute Auto 9.1 x10*3/uL (2.0-8.3); Neutrophils Percent Auto 69.7 % (45-73); Platelet Count 300 X10*3/uL (160-400); Red Blood Count 5.43 X10*6/uL (4.60-5.80); Red Cell Distribution Width 15.8 % (11.0-16.0); White Blood Count 13.1 X10*3/uL (4.8-10.8)
[2024-09-23 13:43] LABS: Anion Gap 13 (12-20); Blood Urea Nitrogen 53 mg/dL (9-16); Calcium 8.9 mg/dL (8.4-10.2); Carbon Dioxide 25 mmol/L (22-29); Chloride 105 mmol/L (96-108); Estimated Glomerular Filt Rate 14; Potassium 4.2 mmol/L (3.3-5.1); Sodium 139 mmol/L (135-145)
== END 2024-09-23 11:29 | disposition home or self-care (01) ==
LOC: HO.HHCL 11:28
PROVIDERS: Visit Provider Internal Medicine Nephrology
DX: I12.9 Hypertensive chronic kidney disease with stage 1 through stage 4 chronic kidney disease, or unspecified chronic kidney disease (principal); E11.22 Type 2 diabetes mellitus with diabetic chronic kidney disease; N18.4 Chronic kidney disease, stage 4 (severe); E11.21 Type 2 diabetes mellitus with diabetic nephropathy; N25.81 Secondary hyperparathyroidism of renal origin; E55.9 Vitamin D deficiency, unspecified; R80.1 Persistent proteinuria, unspecified
CPT/HCPCS: 36415; 80051; 82310; 82565; 84520; 85025

== ENCOUNTER 2024-09-25 11:26 | Outpatient (AMB) | payer MEDICAID, SELFPAY ==
--- NOTE | 2024-09-25 11:59 | HO.NEPHOV_ITS ---
Vital Signs 09/25/24 12:03 Height 5 ft 9 in Weight 267 lb 2 oz BMI 39.4 BP 124/80 Blood Pressure Location Rt brachial Position Sitting Pulse 95 Pulse Source Pulse Oximeter Pulse Oximetry (%) 97 Oxygen Delivery Method Room Air Intake Visit Reasons: 2 MO FU-# Not accepting calls Social Insurance Analyst Required: Yes Social Insurance Analyst Language: [employer] Consultant Services: Social Insurance Analyst Present Social Insurance Analyst Name: Chris [id number] Information Interpreted: clinical only Accompanied by: Spouse Allergies Penicillins [PENICILLINS] Allergy (Intermediate, Verified 09/25/24 12:03) RASH, DIFFICULTY BREATHING HPI Comments Details: Darrel is a 53 y/o male with a medical history of longstanding DMII, REGI, HTN, HLD, CVA with hemiparesis (reports in 2019), DM II, REGI, gout, GERD, rheumatoid arthritis and CKD3b with progressive worsening renal function. patient has elevated urine protein/creatinine ratio of ~14 .renal ultrasound from 03/25 unremarkable- bilateral pelviectasis without trevor hydronephrosis. serum immunofixation with faint IgG kappa monoclonal band present. He denies any uremic symptoms but has been having worsening edema. [facility] Medical History (Updated 06/10/24 @ 09:50 by Joy Fry [facility]) HTN (hypertension) Leukocytosis Memory loss Obesity Idiopathic gout of multiple sites GERD (gastroesophageal reflux disease) Hypertensive chronic kidney disease Secondary hyperparathyroidism, renal Sleep apnea Type 2 diabetes mellitus Schizoaffective disorder Chronic pain syndrome Diabetic polyneuropathy Gout Surgical History History of esophagogastroduodenoscopy (EGD) H/O colonoscopy Family History Father Cancer Diabetes Mother Cancer Diabetes Colon cancer Family/Other Cancer Diabetes Social History Household Members: Spouse Housing: House Do you presently have visiting nurse or other home services: Yes Alcohol intake: never Patient Tobacco Use Status: Never used Tobacco service: No Review of Systems Const All systems reviewed & are unremarkable except as noted in HPI and below Physical Exam Vital Signs: Last Vital Signs Pulse 95 09/25/24 12:03 BP 124/80 09/25/24 12:03 Pulse Ox 97 09/25/24 12:03 Oxygen Delivery Method Room Air 09/25/24 12:03 BMI result Body Mass Index 39.4 Const General: comfortable and no acute distress Orientation/consciousness: patient oriented x3 HEENT Head: Yes normocephalic Mouth: Normal oral and palatal mucosa present Eyes EOM: EOMs intact bilaterally Neck Neck: Yes supple Resp Auscultation: clear to auscultation bilaterally Cardio Jugular venous distension: no JVD Rate: regular rate GI Palpation (GI): Soft to palpation Auscultation: normal bowel sounds General: Yes no CVA tenderness Back/Spine/Pelvis Back: no CVA tenderness Skin General skin exam: no rashes or lesions noted Neuro General: patient oriented x3 and moves all extremities Extrem General: Yes edema Results Reviewed Nephrology Results: Hgb 15.2 g/dl (14.0-18.0) 09/23/24 WBC 13.1 X10*3/uL (4.8-10.8) H 09/23/24 Plt Count 300 X10*3/uL (160-400) 09/23/24 Sodium 139 mmol/L (135-145) 09/23/24 Potassium 4.2 mmol/L (3.3-5.1) 09/23/24 Chloride 105 mmol/L (96-108) 09/23/24 Carbon Dioxide 25 mmol/L (22-29) 09/23/24 BUN 53 mg/dL (9-16) H 09/23/24 Creatinine 4.56 mg/dL (0.5-1.4) H* 09/23/24 Calcium 8.9 mg/dL (8.4-10.2) 09/23/24 Phosphorus 3.5 mg/dL (2.7-4.5) 09/19/24 PTH Intact 683.9 pg/mL (8.7-77.1) H 09/19/24 Assessment & Plan Assessment & Plan (1) CKD (chronic kidney disease) stage 4, GFR 15-29 ml/min: Code(s): N18.4 - Chronic kidney disease, stage 4 (severe) Category: Medical (2) Diabetic nephropathy associated with type 2 diabetes mellitus: Code(s): E11.21 - Type 2 diabetes mellitus with diabetic nephropathy Category: Medical (3) Secondary hyperparathyroidism: Code(s): N25.81 - Secondary hyperparathyroidism of renal origin Category: Medical (4) Vitamin D deficiency: Code(s): E55.9 - Vitamin D deficiency, unspecified Category: Medical (5) HTN (hypertension): Code(s): I10 - Essential (primary) hypertension Category: Medical Qualifiers: Hypertension type: primary hypertension Qualified Code(s): I10 - Essential (primary) hypertension Plan CKD due to diabetic nephropathy. Has a faint monoclonal band present on workup. I increased his furosemide to 40mg twice daily, He is on Jardiance. will consider re-starting low-dose CALEB/ARB for proteinuria, if his renal functions permit . On Vitamin D. BP at home OK. No NSAID's. Good hydration. Discussed about renal replacement when his GFR drops.Answered all questions. F/U labs ordered. Orders: Orders Creatinine 2 Weeks N18.4 - Chronic kidney disease, stage 4 (severe) Electrolytes 2 Weeks N18.4 - Chronic kidney disease, stage 4 (severe) Blood Urea Nitrogen 2 Weeks N18.4 - Chronic kidney disease, stage 4 (severe) Medications: New cholecalciferol (vitamin D3) 1,250 mcg PO QWEEK 14 caps 1RF Changed From furosemide 60 mg (1.5 x 40 mg) PO QAM 30 days 45 tabs 6RF To furosemide 40 mg PO BID 30 days 60 tabs 6RF Discontinued cholecalciferol (vitamin D3) Discontinued Reason: Doctor's Order 125 mcg (2.5 x 50 mcg (2,000 unit)) PO DAILY 30 tabs 10RF E55.9 - Vitamin D deficiency, unspecified, N25.81 - Secondary hyperparathyroidism of renal origin Coding Level of Care Code Est Pt Level 4 (41048) Diagnoses CKD (chronic kidney disease) stage 4, GFR 15-29 ml/min N18.4 Diabetic nephropathy associated with type 2 diabetes mellitus E11.21 Secondary hyperparathyroidism N25.81 Vitamin D deficiency E55.9 Primary hypertension I10 Hypertension type: primary hypertension
[2024-09-25 12:03] VITALS: BP 124/80; PULSE 95; O2SAT 97; BMI 39.4
--- OUTSIDE RECORDS SUMMARY | 2024-09-25 12:45 | XMS_ITS | Encounter Summary ---
Author Organization [facility] Address [address] [place] [phone] Care Team Providers Care Facility Maintenance Helper Name Role Phone Deep Pruitt APRN Primary Care Provider Reason for Visit * Reason Comments DME Encounter Details Date Type Department Care Team ([facility] st Contact Info) Description 05/04/2022 Documentation Sleep Medicine Program at [address] [place] [id number] Jarad De Leon MD [address] [place] [phone] Social History Tobacco Use Types Packs/Day [...] Date Recorded PHQ-2 Total Score 2 02/17/2022 [facility]at ional Health [...] documented as of this encounter Care Teams Facility Maintenance Helper Relationship Specialty Start Date End Date Deep Pruitt APRN PCP - General 05/22/19 documented as of this encounter
--- OUTSIDE RECORDS SUMMARY | 2024-09-25 12:45 | XMS_ITS | Encounter Summary ---
Author Organization [employer] Address [address] [facility] 7 [place] [address] Care Team Providers Care Bulbs Farmworker Name Role Phone Katrin Santoyo MD Primary Care Pro vider Edison Vieira MD Unavailable [phone] Joe Devi MD Unavailable Chuy Mcmanus MD Unavailable [phone] Reason for Visit * Reason Onset Date Comments Interopffice Coordination 09/19/2024 Encounter Details Date Type Department Care Team (Late st Contact Info) Description 09/19/2024 Results Follow-Up [facility] [address] [place], [place] [phone] Katrin Santoyo MD [address] [place] [address] POCT Glucose, POCT HGB A1C, Cortisol Random, [...] the past 12 months, has t he [employer], [employer], oil or water [employer] threatened to shut off services in your [...] Telephone Encounter - Kassidy Ly RN - 09/25/2024 9:34 AM EDT Telephone call placed to [facility]. Explained below information. Inquired if pt has upcoming appt and what POC going forward is given lab results. They stated pt has not upcoming appts and that they sent message to provider but there is no documented plan regarding tirzepatide. They will send another message. They advise that pt calls them to schedule follow up to discuss as they haven't seen him since June. Informed that if tirzepatide is discontinued, need to coordinate and notify endo. Telephone call placed to pt who gave verbal authorization to apeak to spouse and gave her the phone. Informed of abnormal lab: elevated lipase again. Recommendation is for him to discuss possibly discontinuing or switching to different medication with weight management. Gave their phone number. Also informed that if he is taken off of tirzepatide, BG may increase so will need to follow up with endo if that happens to monitor his BG. She states will call weight management and endo today to make F/Us. Faxed lab results to pt's Bariatric surgeon. * Telephone Encounter - Kassidy Ly RN - 09/25/2024 9:19 AM EDT ----- Message from Katrin López MD sent at 09/23/2024 4:33 PM EDT ----- As per our discussion please inform endo and weight management about again lipase elevation , pt was asymptomatic but lab was done because he had elevated lipase before for which GLP1 was stopped and now bariatric surgeon started Tirzepatide , I did not discontinued med ,I would like they follow w pt ,if they stop which I think will be ideal to avoid complications in the future we need endo on board because CBGs will get higher Thanks ----- Message ----- From: Tamiko Bray MA Sent: 08/22/2024 1:10 PM EDT To: Katrin López MD * Telephone Encounter - Kassidy Ly RN - 09/20/2024 9:45 AM EDT Telephone call placed to [facility] (office of prescribing provider). Informed tirzepatide discontinued d/t elevated pancreatic enzymes and lipase. Telephone call placed to [facility] End[facility]. Informed tirzepatide discontinued which was Rxd [...] prescriber Also please can you inform his tent worker that bariatric surgeon started him on [...] prescriber Also please can you inform his tent worker that bariatric surgeon started him on [...] Description 10/07/2024 1:00 PM EDT Clinical Support [facility] [address] [place] [address] 11/01/2024 1:15 PM EDT Office Visit [address] [address] Katrin Santoyo MD [address] [place] [address] 11/12/2024 9:45 AM EDT Office Visit [address] [address] documented as of this encounter Goals Goal [...] documented as of this encounter Care Teams Bulbs Farmworker Relationship Specialty Start Date End Date Katrin Santoyo MD [address] [place] [address] PCP - General Internal Medicine 12/13/22 Edison Vieira MD [address] [place] [address] Pulmonary Disease 04/07/24 Joe Devi MD [address] [place] [address] 3rd [place] [address] Gastroenterology 04/07/24 Chuy Mcmanus MD [address] [place] [address] Bariatrics 09/25/24 Carito Roche DNP [address] [facility], [address] [place] [address] Nephrology 04/07/24 [employer] 04/11/24 documented as of this encounter
--- OUTSIDE RECORDS SUMMARY | 2024-09-25 12:45 | XMS_ITS | Encounter Summary ---
Author Organization [facility] Address [address] [place] [address] Care Team Providers Care Senior Associate Name Role Phone Deep Pruitt APRN Primary Care Provider Encounter Details Date Type Department Care Team ([facility] st Contact Info) Description 06/25/2021 Telephone [facility] [address] [place] [address] Deep Pruitt APRN [address] [place] [address] Social History Tobacco Use Types [...] Date Recorded PHQ-2 Total Score 3 05/31/2021 [facility] of Occupat ional [...] as of this encounter Care Teams Senior Associate Relationship Specialty Start Date End Date Deep Pruitt APRN PCP - General 05/22/19 documented as of this encounter
--- OUTSIDE RECORDS SUMMARY | 2024-09-25 12:45 | XMS_ITS | Encounter Summary ---
Author Organization [employer] Address [address] [facility] 7t [place] [address] Care Team Providers Care Psychometrician Name Role Phone Katrin Santoyo MD Primary Care Pro vider Edison Vieira MD Unavailable Joe Devi MD Unavailable [phone] Chuy Mcmanus MD Unavailable Encounter Details Date Type Department Care Team (Late st Contact Info) Description 09/19/2024 Results Follow-Up [facility] [address] [place] [address] Katrin Santoyo MD [address] [place] [address] PTH, Intact Without Calcium Social History Tobacco [...] prescriber Also please can you inform his code machine operator that bariatric surgeon started him on tirzepatide [...] Description 10/07/2024 1:00 PM EDT Clinical Support [facility] [address] [place] [address] 11/01/2024 1:15 PM EDT Office Visit [facility] [address] [place] [address] Katrin Santoyo MD [address] [place] [address] 11/12/2024 9:45 AM EDT Office Visit [facility] [address] [place] [address] documented as of this encounter Goals Goal [...] documented as of this encounter Care Teams Psychometrician Relationship Specialty Start Date End Date Katrin Santoyo MD [address] [place] [address] PCP - General Internal Medicine 12/13/22 Edison Vieira MD [address] [place] [address] Pulmonary Disease 04/07/24 Joe Devi MD [address] [place] [address] 3rd [place] [address] Gastroenterology 04/07/24 Chuy Mcmanus MD [address] [place] [address] [place] [address] Bariatrics 09/25/24 Carito Roche DNP 10 [facility], [address] [place] [address] Nephrology 04/07/24 [employer] 04/11/24 documented as of this encounter
--- OUTSIDE RECORDS SUMMARY | 2024-09-25 12:45 | XMS_ITS | Encounter Summary ---
Author Organization [facility] Address [address] [place] [address] Care Team Providers Care Sales Consultant Insurance Name Role Phone Deep Pruitt APRN Primary Care Provider [phone] Reason for Visit * Reason Comments Medication Refill Encounter Details Date Type Department Care Team ([facility] st Contact Info) Description 06/07/2022 Refill [facility] [address] [place], [place] [phone] Deep Pruitt APRN [address] [place] [address] Medication Refill Social History Tobacco [...] you attend chur ch or adventist services? More than 4 times per year [...] Date Recorded PHQ-2 Total Score 2 02/17/2022 [facility]at [facility] - [...] your living situation today? I have a channing home place to live 05/19/2022 Sex and Gender [...] as of this encounter Care Teams Sales Consultant Insurance Relationship Specialty Start Date End Date Deep Pruitt APRN PCP - General 05/22/19 documented as of this encounter
--- OUTSIDE RECORDS SUMMARY | 2024-09-25 12:45 | XMS_ITS | Encounter Summary ---
Author Organization [facility] Address [address] [place] [address] Care Team Providers Care Chronic Specialist Name Role Phone Deep Pruitt APRN Primary Care Provider Reason for Visit * Reason Comments Medication Refill Encounter Details Date Type Department Care Team ([facility] st Contact Info) Description 06/30/2021 Refill [facility] [address] [place], [place] [phone] Deep Pruitt APRN [address] [place] [address] Medication Refill Social History Tobacco [...] Date Recorded PHQ-2 Total Score 3 05/31/2021 [facility] Occupat ional Health [...] documented as of this encounter Care Teams Chronic Specialist Relationship Specialty Start Date End Date Deep Pruitt APRN PCP - General 05/22/19 documented as of this encounter
--- OUTSIDE RECORDS SUMMARY | 2024-09-25 12:45 | XMS_ITS | Encounter Summary ---
Author Organization [facility] Address [address] [place] [address] Care Team Providers Care Integrated Logistics Support Manager Name Role Phone Deep Pruitt APRN Primary Care Provider Reason for Visit * Reason Comments Medication Refill Encounter Details Date Type Department Care Team ([facility] st Contact Info) Description 07/29/2020 Refill [facility] [address] [place], [place] [phone] Deep Pruitt, JOHN [address] [place] [address] Medication Refill Social History Tobacco Use [...] 07/07/2020 [facility] Occupat ional [facility] - Occupational Stress Questionnaire Answer [...] documented as of this encounter Care Teams Integrated Logistics Support Manager Relationship Specialty Start Date End Date Deep Pruitt APRN PCP - General 05/22/19 documented as of this encounter
--- OUTSIDE RECORDS SUMMARY | 2024-09-25 12:45 | XMS_ITS | Encounter Summary ---
Author Organization [employer] Address [address] [facility] 7t [place] [address] Care Team Providers Care Windows Server Architect Name Role Phone Katrin Santoyo MD Primary Care Pro vider Edison Vieira MD Unavailable [phone] Joe Devi MD Unavailable [phone] Chuy Mcmanus MD Unavailable [phone] Reason for Visit * Reason Comments Med Refill Encounter Details Date Type Department Care Team (Late st Contact Info) Description 02/11/2024 Refill [facility] [address] [place] [address] Moriah Herbert FNP [address] [place] [address] Chronic radicular lumbar pain Social History Tobacco [...] Description 10/07/2024 1:00 PM EDT Clinical Support [address] [address] 11/01/2024 1:15 PM EDT Office Visit [address] [address] Katrin Santoyo MD [address] [place] [address] 11/12/2024 9:45 AM EDT Office Visit [address] [address] documented as of this encounter Goals Goal Patient Goal Type Associated Problems Recent Progress Patient-Stated? Author Blood Pressure < 140/90 Blood Pressure 134/78(2024 1:13 PM EDT) No [facility]ve Grier, PharmD Hemoglobin A1c < 7 Result Component 10.2(08/23/19 1:13 PM EDT) No NemesiosEve Greene, PharmD documented as of this encounter Visit Diagnoses Diagnosis Chronic radicular lumbar pain documented in this encounter Additional Health Concerns Assessment Noted Time PHQ-9 Depression Total Score: 4 10/31/19 10:32 AM EDT documented as of this encounter Care Teams Windows Server Architect Relationship Specialty Start Date End Date Katrin Santoyo MD [address] [place] [address] PCP - General Internal Medicine 12/13/22 Edison Vieira MD [address] [place] [address] Pulmonary Disease 04/07/24 Joe Devi MD [address] [place] [address] 3rd [place] [address] Gastroenterology 04/07/24 Chuy Mcmanus MD [address] [place] [address] Bariatrics 09/25/24 Carito Roche DNP 10 [facility], [address] [place] [address] Nephrology 04/07/24 [employer] 04/11/24 documented as of this encounter
--- OUTSIDE RECORDS SUMMARY | 2024-09-25 12:45 | XMS_ITS | Encounter Summary ---
Author Organization [facility] Address [address] [place] [address] Care Team Providers Care Sat Act Instructor Name Role Phone Deep Pruitt APRN Primary Care Provider Encounter Details Date Type Department Care Team (Late st Contact Info) Description 06/11/[address] [facility] 9 [facility], 2nd floor [facility], [address] [place], [place] [phone] Isha Brown APRN [address] [place] [address] Social History Tobacco Use Types [...] Date Recorded PHQ-2 Total Score 3 05/31/2021 [facility] of Occupat ional Health [...] documented as of this encounter Care Teams Sat Act Instructor Relationship Specialty Start Date End Date Deep Pruitt APRN PCP - General 05/22/19 documented as of this encounter
--- OUTSIDE RECORDS SUMMARY | 2024-09-25 12:45 | XMS_ITS | Encounter Summary ---
Author Organization [facility] Address [address] [place] [address] Care Team Providers Care News Commentator Name Role Phone Deep Pruitt APRN Primary Care Provider Reason for Visit * Reason Comments Medication Refill Encounter Details Date Type Department Care Team ([facility] st Contact Info) Description 06/19/2020 Refill [facility] [address] [place] [address] Deep Pruitt APRN [address] [place] [phone] Medication Refill Social History Tobacco Use [...] documented as of this encounter Care Teams News Commentator Relationship Specialty Start Date End Date Deep Pruitt APRN PCP - General 05/22/19 documented as of this encounter
--- OUTSIDE RECORDS SUMMARY | 2024-09-25 12:45 | XMS_ITS | Encounter Summary ---
Author Organization [facility] Address [address] [place] [address] Care Team Providers Care Per Diem Nurse Name Role Phone Deep Pruitt APRN Primary Care Provider Reason for Visit * Reason Comments Medication Refill Encounter Details Date Type Department Care Team ([facility] st Contact Info) Description 07/10/2020 Refill [facility] [address] [place] [address] Deep Pruitt APRN [address] [place] [phone] Medication Refill Social History Tobacco Use [...] [facility] of Occupat ional [facility] - [...] documented as of this encounter Care Teams Per Diem Nurse Relationship Specialty Start Date End Date Deep Pruitt APRN PCP - General 05/22/19 documented as of this encounter
--- OUTSIDE RECORDS SUMMARY | 2024-09-25 12:45 | XMS_ITS | Encounter Summary ---
Author Organization [employer] Address 75 [facility] 7t [place] [address] Care Team Providers Care Laborer Hoisting Name Role Phone Katrin Santoyo MD Primary Care Pro vider Edison Vieira MD Unavailable [phone] Joe Devi MD Unavailable [phone] Reason for Visit * Reason Onset Date Comments Error (VOID this visit) 09/23/2024 Encounter Details Date Type Department Care Team (Late st Contact Info) Description 09/23/2024 Telephone [facility] [address] [place], [place] [phone] Kassidy Ly, RN [address] [place] [address] Error (VOID this visit) Social History Tobacco [...] Description 10/07/2024 1:00 PM EDT Clinical Support [address] [address] 11/01/2024 1:15 PM EDT Office Visit [address] [address] Katrin Santoyo MD [address] [place] [address] 11/12/2024 9:45 AM EDT Office Visit [address] [address] documented as of this encounter Goals Goal [...] documented as of this encounter Care Teams Laborer Hoisting Relationship Specialty Start Date End Date Katrin Santoyo MD [address] [place] [address] PCP - General Internal Medicine 12/13/22 Edison Vieira MD 5 [place] [address] Pulmonary Disease 04/07/24 Joe Devi MD 11 [facility] 3rd [place] [address] Gastroenterology 04/07/24 Carito Roche DNP 10 [facility], [address] [place] [address] Nephrology 04/07/24 [employer] 04/11/24 documented as of this encounter
--- OUTSIDE RECORDS SUMMARY | 2024-09-25 12:45 | XMS_ITS | Encounter Summary ---
Author Organization [employer] Address 75 [facility] 7t [place] [address] Care Team Providers Care Book Author Name Role Phone Katrin Santoyo MD Primary Care Pro vider Edison Vieira MD Unavailable [phone] Joe Devi MD Unavailable [phone] Chuy Mcmanus MD Unavailable Reason for Visit * Reason Comments Med Refill Encounter Details Date Type Department Care Team (Late st Contact Info) Description 09/25/2024 Refill [facility] 230 [place], [place] [phone] Vivian Hoyt MD 230 [place], [place] [phone] Social History Tobacco Use Types Packs/Day Years [...] Description 10/07/2024 1:00 PM EDT Clinical Support [address] [address] 11/01/2024 1:15 PM EDT Office Visit [address] [address] Katrin Santoyo MD [address] [place] [address] 11/12/2024 9:45 AM EDT Office Visit [address] [address] documented as of this encounter Goals Goal Patient Goal Type Associated Problems Recent Progress Patient-Stated? Author Blood Pressure < 140/90 Blood Pressure 134/78(2024 1:13 PM EDT) No Piers-GambNimo sheikhsa, PharmD Hemoglobin A1c < 7 Result Component 10.2(08/23/19 1:13 PM EDT) No Nemesios-Gambl eEve, PharmD documented as of this encounter Visit Diagnoses Not on filedocumented in this encounter Additional Health Concerns Assessment Noted Time PHQ-9 Depression Total Score: 4 10/31/19 10:32 AM EDT documented as of this encounter Care Teams Book Author Relationship Specialty Start Date End Date Katrin Santoyo MD 230 [place] [address] PCP - General Internal Medicine 12/13/22 Edison Vieira MD 5 [place] [address] Pulmonary Disease 04/07/24 Joe Devi MD [address] [place] [address] 3rd [place] [address] Gastroenterology 04/07/24 Chuy Mcmanus MD [address] [place] [address] [place] [address] Bariatrics 09/25/24 Carito Roche DNP 10 [facility], [address] [place] [address] Nephrology 04/07/24 [email or web address] 04/11/24 documented as of this encounter
--- OUTSIDE RECORDS SUMMARY | 2024-09-25 12:45 | XMS_ITS | Encounter Summary ---
Author Organization [facility] Address [address] [place] [address] Care Team Providers Care Utilization Specialist Name Role Phone Sonal Deep Niko LOPEZ Primary Care Provider Reason for Visit * Reason Comments Medication Refill Encounter Details Date Type Department Care Team (Late st Contact Info) Description 07/03/2020 Refill [facility] Nutrition at [address] [address] Zena Hines PA [address] [place] [phone] Medication Refill Social History Tobacco Use [...] 07/07/2020 [facility] of Occupat ional Health [...] for Metformin received. Pt was engaging with [facility] and continues with PCP. Unclear [...] documented as of this encounter Care Teams Utilization Specialist Relationship Specialty Start Date End Date Deep Pruitt APRN PCP - General 05/22/19 documented as of this encounter
--- OUTSIDE RECORDS SUMMARY | 2024-09-25 12:45 | XMS_ITS | Encounter Summary ---
Author Organization [facility] Address [address] [place] [address] Care Team Providers Care Recreation Leader Name Role Phone Deep Pruitt APRN Primary Care Provider Reason for Visit * Reason Comments Other Encounter Details Date Type Department Care Team ([facility] Contact Info) Description 05/24/2022 Telephone [facility] [address] [place] [address] Deep Pruitt APRN [address] [place] [phone] Other Social History Tobacco Use Types [...] you attend chur ch or sikh services? More than 4 times per year [...] Date Recorded PHQ-2 Total Score 2 02/17/2022 [facility] - [facility] Stress Questionnaire Answer Date [...] your living situation today? [facility] 05/19/2022 Sex and [...] AM EST Patient best call back number [phone]. Patient has an upcoming appt with his [...] as of this encounter Care Teams Recreation Leader Relationship Specialty Start Date End Date Deep Pruitt APRN PCP - General 05/22/19 documented as of this encounter
--- OUTSIDE RECORDS SUMMARY | 2024-09-25 12:45 | XMS_ITS | Encounter Summary ---
Author Organization [employer] Address 75 [facility] 7t [place] [address] Care Team Providers Care Slide Fastener Chain Assembler Name Role Phone Katrin Santoyo MD Primary Care Pro vider Edison Vieira MD Unavailable [phone] Joe Devi MD Unavailable [phone] Chuy Mcmanus MD Unavailable Encounter Details Date Type Department Care Team (Late st Contact Info) Description 09/20/2024 Results Follow-Up [facility] [address] [place] [address] Billy Martínez MD 230 [place] [address] POCT glucose manually resulted, Uric acid, Basic [...] Description 10/07/2024 1:00 PM EDT Clinical Support [address] [address] 11/01/2024 1:15 PM EDT Office Visit [address] [address] Katrin Santoyo MD [address] [place] [address] 11/12/2024 9:45 AM EDT Office Visit [address] [address] documented as of this encounter Goals Goal Patient Goal Type Associated Problems Recent Progress Patient-Stated? Author Blood Pressure < 140/90 Blood Pressure 134/78(2024 1:13 PM EDT) No Nemesios-Eve Grier, PharmD Hemoglobin A1c < 7 Result Component 10.2(08/23/19 1:13 PM EDT) No Eve Guzman, PharmD documented as of this encounter Visit Diagnoses Not on filedocumented in this encounter Additional Health Concerns Assessment Noted Time PHQ-9 Depression Total Score: 4 10/31/19 10:32 AM EDT documented as of this encounter Care Teams Slide Fastener Chain Assembler Relationship Specialty Start Date End Date Katrin Santoyo MD [address] [place] [address] PCP - General Internal Medicine 12/13/22 Edison Vieiar MD [address] [place] [address] Pulmonary Disease 04/07/24 Joe Devi MD [address] [place] [address] 3rd [place] [address] Gastroenterology 04/07/24 Chuy Mcmanus MD [address] [place] [address] [place] [address] Bariatrics 09/25/24 Carito Roche DNP 10 [facility], [address] [place] [address] Nephrology 04/07/24 [employer] 04/11/24 documented as of this encounter
--- OUTSIDE RECORDS SUMMARY | 2024-09-25 12:45 | XMS_ITS | Encounter Summary ---
Author Organization [facility] Address [address] [place] [address] Care Team Providers Care Fruit Or Nut Farmer Name Role Phone Deep Pruitt JOHN Primary Care Provider Reason for Visit * Reason Comments Medication Refill Encounter Details Date Type Department Care Team (Late st Contact Info) Description 07/20/2020 Refill [facility] Podiatry at [address] [place] [phone] Arben Fountain, NOLVIA [address] [place] [address] Medication Refill Social History Tobacco [...] Answer Date Recorded PHQ-2 Score 2 07/07/2020 [facility] Occupat ional Health [...] as of this encounter Care Teams Fruit Or Nut Farmer Relationship Specialty Start Date End Date Deep Pruitt APRN PCP - General 05/22/19 documented as of this encounter
--- OUTSIDE RECORDS SUMMARY | 2024-09-25 12:46 | XMS_ITS | Encounter Summary ---
Author Organization [facility] Address [address] [place] [address] Care Team Providers Care Meat Counter Worker Name Role Phone Deep Pruitt APRN Primary Care Provider Reason for Visit * Reason Comments Medication Refill Encounter Details Date Type Department Care Team ([facility] st Contact Info) Description 06/19/2020 Refill [facility] [address] [place] [address] Deep Pruitt APRN [address] [place] [phone] Medication Refill Social History Tobacco Use [...] Answer Date Recorded PHQ-2 Score 0 03/13/2020 [facility] of Occupat ional Health [...] as of this encounter Care Teams Meat Counter Worker Relationship Specialty Start Date End Date Deep Pruitt APRN PCP - General 05/22/19 documented as of this encounter
--- OUTSIDE RECORDS SUMMARY | 2024-09-25 12:46 | XMS_ITS | Encounter Summary ---
Author Organization [facility] Address [address] [place] [address] Care Team Providers Care Enterer Name Role Phone Deep Pruitt APRN Primary Care Provider Reason for Visit * Reason Comments Forms Encounter Details Date Type Department Care Team ([facility] Contact Info) Description 06/16/2020 Telephone [facility] [address] [place] [address] Deep Pruitt APRN [address] [place] [phone] Forms Social History Tobacco Use Types [...] update on handicap forms for pt. Call [phone] documented in this encounter Plan of Treatment [...] documented as of this encounter Care Teams Enterer Relationship Specialty Start Date End Date Deep Pruitt APRN PCP - General 05/22/19 documented as of this encounter
--- OUTSIDE RECORDS SUMMARY | 2024-09-25 12:46 | XMS_ITS | Encounter Summary ---
Author Organization [employer] Address 75 [facility] 7t [place] [address] Care Team Providers Care Hvac Project Manager Name Role Phone Katrin Santoyo MD Primary Care Pro vider Edison Vieira MD Unavailable [phone] Joe Devi MD Unavailable [phone] Chuy Mcmanus MD Unavailable Reason for Visit * Reason Onset Date Comments Durable Medical Equipment 11/08/2023 Encounter Details Date Type Department Care Team (Late st Contact Info) Description 11/08/2023 Telephone [facility] [address] [place], [place] [phone] Katrin Santoyo MD [address] [place], [place] [phone] Durable Medical Equipment Social History Tobacco Use [...] 11/10/2023 11:01 AM EDT Call placed to [facility] spoke to Zhen who was informed on 10/31/23 we faxed over RX with the qty on it. He reports that what they need is the letter of medical necessity not the Rx. He reports he will fax it to blue team at [phone] and once signed and faxed back it will be all set. Awaiting do cument. * Telephone Encounter - Mauricio Taylor - 11/08/2023 3:57 PM EDT Tc from Tanya at [facility] calling to report the DME is missing the quantity and the description please sign and refax documented in this encounter Plan of Treatment Upcoming Encounters Date Type Department Care Team (Late st Contact Info) Description 10/07/2024 1:00 PM EDT Clinical Support [address] [address] 11/01/2024 1:15 PM EDT Office Visit [facility] [address] [place] [address] Katrin Santoyo MD [address] [place] [address] 11/12/2024 9:45 AM EDT Office Visit [address] [address] documented as of this encounter Goals Goal Patient Goal Type Associated Problems Recent Progress Patient-Stated? Author Blood Pressure < 140/90 Blood Pressure 134/78(2024 1:13 PM EDT) No NemesiosEve Greene, PharmD Hemoglobin A1c < 7 Result Component 10.2(08/23/19 1:13 PM EDT) No Eve Guzman PharmD documented as of this encounter Visit Diagnoses Not on filedocumented in this encounter Additional Health Concerns Assessment Noted Time PHQ-9 Depression Total Score: 4 10/31/19 10:32 AM EDT documented as of this encounter Care Teams Hvac Project Manager Relationship Specialty Start Date End Date Katrin Santoyo MD [address] [place] [address] PCP - General Internal Medicine 12/13/22 Edison Vieira MD [address] [place] [address] Pulmonary Disease 04/07/24 Joe Devi MD [address] [place] [address] 3rd [place] [address] Gastroenterology 04/07/24 Chuy Mcmanus MD [address] [place], [place] [address] [place] [address] Bariatrics 09/25/24 Carito Roche DNP 10 [facility], [address] [place] [address] Nephrology 04/07/24 [employer] 04/11/24 documented as of this encounter
--- OUTSIDE RECORDS SUMMARY | 2024-09-25 12:46 | XMS_ITS | Encounter Summary ---
Author Organization [facility] Address [address] [place] [address] Care Team Providers Care Corporate Human Resources Manager Name Role Phone Deep Pruitt APRN Primary Care Provider Encounter Details Date Type Department Care Team ([facility] st Contact Info) Description 06/13/2020 Scanned Document [facility] [address] [place], [place] [phone] Deep Pruitt APRN [address] [place] [address] Social History Tobacco Use Types [...] Answer Date Recorded PHQ-2 Score 0 03/13/2020 [facility] of Occupat ional Health - Occupational Stress [...] documented as of this encounter Care Teams Corporate Human Resources Manager Relationship Specialty Start Date End Date Deep Pruitt APRN PCP - General 05/22/19 documented as of this encounter
--- OUTSIDE RECORDS SUMMARY | 2024-09-25 12:46 | XMS_ITS | Encounter Summary ---
Author Organization [facility] Address [address] [place] [address] Care Team Providers Care Window Air Conditioner Installer Name Role Phone Deep Pruitt JOHN Primary Care Provider Reason for Visit * Reason Comments Medication Refill Encounter Details Date Type Department Care Team (Late st Contact Info) Description 05/06/2021 Refill [facility] Podiatry at [address] [place] [phone] Arben Fountain, NOLVIA [address] [place] [address] Medication Refill Social History Tobacco [...] Date Recorded PHQ-2 Total Score 0 04/21/2021 [facility] - Occupational Stress Questionnaire Answer [...] documented as of this encounter Care Teams Window Air Conditioner Installer Relationship Specialty Start Date End Date Deep Pruitt APRN PCP - General 05/22/19 documented as of this encounter
--- OUTSIDE RECORDS SUMMARY | 2024-09-25 12:47 | XMS_ITS | Encounter Summary ---
Author Organization [facility] Address [address] [place] [address] Care Team Providers Care Data Analytics Specialist Name Role Phone Deep Pruitt APRN Primary Care Provider Reason for Visit * Reason Comments Other Encounter Details Date Type Department Care Team ([facility] Contact Info) Description 05/19/2020 Telephone [facility] [address] [place] [address] Deep Pruitt APRN [address] [place] [address] Other Social History Tobacco Use [...] Answer Date Recorded PHQ-2 Score 0 03/13/2020 [facility] of Occupat ional Health - [...] to his gout, call back number is [phone] documented in this encounter Plan of Treatment [...] as of this encounter Care Teams Data Analytics Specialist Relationship Specialty Start Date End Date Deep Pruitt APRN PCP - General 05/22/19 documented as of this encounter
--- OUTSIDE RECORDS SUMMARY | 2024-09-25 12:47 | XMS_ITS | Encounter Summary ---
Author Organization [facility] Address [address] [place] [address] Care Team Providers Care Automotive Professional Name Role Phone Deep Pruitt JOHN Primary Care Provider Reason for Visit * Reason Comments Medication Refill Encounter Details Date Type Department Care Team (Late st Contact Info) Description 05/12/2021 Refill [facility] Podiatry at [address] [place] [phone] Arben Fountain, NOLVIA [address] [place] [address] Medication Refill Social History Tobacco [...] Date Recorded PHQ-2 Total Score 0 04/21/2021 [facility]ational Stress Questionnaire Answer [...] as of this encounter Care Teams Automotive Professional Relationship Specialty Start Date End Date Deep Pruitt APRN PCP - General 05/22/19 documented as of this encounter
--- OUTSIDE RECORDS SUMMARY | 2024-09-25 12:47 | XMS_ITS | Encounter Summary ---
Author Organization [facility] Address [address] [place] [address] Care Team Providers Care Rn Flight Name Role Phone Sonal Deep Niko LOPEZ Primary Care Provider [phone] Reason for Visit * Reason Comments Medication Refill Encounter Details Date Type Department Care Team ([facility] st Contact Info) Description 04/12/[address] [facility] [address] [place] [address] Aliya Pond, [address] [phone] Medication Refill Social History [...] Date Recorded PHQ-2 Total Score 1 03/24/2021 [facility] - Occupational [...] as of this encounter Care Teams Rn Flight Relationship Specialty Start Date End Date Deep Pruitt APRN PCP - General 05/22/19 documented as of this encounter
--- OUTSIDE RECORDS SUMMARY | 2024-09-25 12:47 | XMS_ITS | Encounter Summary ---
Author Organization [facility] Address [address] [place] [address] Care Team Providers Care Retail Asset Protection Specialist Name Role Phone Deep Pruitt Niko LOPEZ Primary Care Provider Reason for Visit * Reason Comments Medication Refill Encounter Details Date Type Department Care Team (Late st Contact Info) Description 05/06/[address] [phone] Arben Fountain, NOLVIA [address] [place] [address] Medication Refill Social History Tobacco [...] as of this encounter Care Teams Retail Asset Protection Specialist Relationship Specialty Start Date End Date Deep Pruitt APRN PCP - General 05/22/19 documented as of this encounter
--- OUTSIDE RECORDS SUMMARY | 2024-09-25 12:47 | XMS_ITS | Encounter Summary ---
Author Organization [facility] Address [address] [place] [address] Care Team Providers Care Steelworker Name Role Phone Romelia Pruittian Niko LOPEZ Primary Care Provider [phone] Reason for Visit * Reason Comments Medication Refill Encounter Details Date Type Department Care Team ([facility] st Contact Info) Description 05/05/2021 Refill [facility] [address] [place] [phone] Aliya Pond, [address] [address] Medication Refill Social History Tobacco [...] Total Score 0 04/21/2021 [facility] - Occupational Stress Questionnaire [...] documented as of this encounter Care Teams Steelworker Relationship Specialty Start Date End Date Deep Pruitt APRN PCP - General 05/22/19 documented as of this encounter
--- OUTSIDE RECORDS SUMMARY | 2024-09-25 12:47 | XMS_ITS | Encounter Summary ---
Author Organization [facility] Address [address] [place] [address] Care Team Providers Care Feed Mixer Name Role Phone Sonal Deep Niko LOPEZ Primary Care Provider Reason for Visit * Reason Comments Medication Refill Encounter Details Date Type Department Care Team (Late st Contact Info) Description 04/07/2021 Refill [facility] Nutrition at [address] [address] Zena Hines PA [address] [place] [phone] Medication Refill Social History Tobacco Use [...] 1 03/24/2021 [facility] of Occupat ional [...] seeing Zena Hines for DM management at [facility]. Thanks, Katrin documented in this encounter [...] as of this encounter Care Teams Feed Mixer Relationship Specialty Start Date End Date Deep Pruitt APRN PCP - General 05/22/19 documented as of this encounter
--- OUTSIDE RECORDS SUMMARY | 2024-09-25 12:47 | XMS_ITS | Encounter Summary ---
Author Organization [facility] [employer] [facility] Address [address] [place] [address] Care Team Providers Care Hospital Television Rental Clerk Name Role Phone Deep Pruitt APRN Primary Care Provider Reason for Visit * Reason Comments DME Encounter Details Date Type Department Care Team (Late st Contact Info) Description 04/11/2022 Documentation Sleep Medicine Program at [address] [place] [address] Jarad De Leon MD [address] [place] [phone] Social History Tobacco Use Types Packs/Day [...] Date Recorded PHQ-2 Total Score 2 02/17/2022 [facility] of Occupat ional Health [...] documented as of this encounter Care Teams Hospital Television Rental Clerk Relationship Specialty Start Date End Date Deep Pruitt APRN PCP - General 05/22/19 documented as of this encounter
--- OUTSIDE RECORDS SUMMARY | 2024-09-25 12:47 | XMS_ITS | Encounter Summary ---
Author Organization [facility] Address [address] [place] [address] Care Team Providers Care Insole Coverer Name Role Phone Deep Pruitt APRN Primary Care Provider Encounter Details Date Type Department Care Team (Late st Contact Info) Description 04/08/2021 Lab Requisition [facility] Specimens [address] [place] [address] Isha Brown APRN [address] [place] [address] Persons encountering health services in [...] Score 1 03/24/2021 [facility] - [...] Date/Time Associated Diagnosis Comments BLOOD GAS, ARTERIAL ([facility]) Routine 04/08/2021 12:44 PM EST documented in this encounter Results * (ABNORMAL) Blood gas, arterial () (04/08/2021 12:44 PM EST) pH Arterial 7.37 7.35 - 7.45 units 04/08/2021 12:54 PM [facility] DEPARTMENT OF LABORATORY MEDICINE pCO2, Arterial 49(H) 32 - 48 mmHg 04/08/20 21 12:54 PM [facility] DEPARTMENT OF LABORATORY MEDICINE pO2, Arterial 65(L) 83 - 108 mmHg 04/08/2021 12:54 PM [facility] DEPARTMENT OF LABORATORY MEDICINE O2 Sat, Arterial 89(L) 94 - 98 % 04/08/20 12:54 PM [facility] DEPARTMENT OF LABORATORY MEDICINE Calculated HCO3, Arterial 27.5 21.0 - 28.0 mmol/L 04/08/2021 12:54 PM [facility] DEPARTMENT OF LABORATORY MEDICINE Base Excess, Arterial 2 -2 - 3 mmol/L 04/08/2021 12:54 PM [facility] DEPARTMENT OF LABORATORY MEDICINE Patient Temperature 37.0 Celsius 04/08/2021 12:54 PM EST [facility] DEPARTMENT OF LABORATORY MEDICINE FIO2 21 % 04/08/2021 12:54 PM EST [facility] DEPARTMENT OF LABORATORY MEDICINE Blood, Arterial 04/08/2021 1 2:44 PM EST 04/08/2021 12:45 PM EST us Isha Brown MECHANICAL PRESS OPERATOR LAB BLOOD ORDERABL ES Final Result Performing Organization Address City/State/[facility] de Phone Number [facility] DEPARTMENT OF LABORATORY MEDICINE [address] [place] [address] documented in this encounter Visit Diagnoses Diagnosis [...] documented as of this encounter Care Teams Insole Coverer Relationship Specialty Start Date End Date Deep Pruitt APRN PCP - General 05/22/19 documented as of this encounter
--- OUTSIDE RECORDS SUMMARY | 2024-09-25 12:47 | XMS_ITS | Encounter Summary ---
Author Organization [facility] Address [address] [place] [address] Care Team Providers Care Extrusion Machine Operator Name Role Phone Sonal Deep Niko LOPEZ Primary Care Provider [phone] Reason for Visit * Reason Comments Medication Refill Encounter Details Date Type Department Care Team ([facility] st Contact Info) Description 05/03/2021 Refill [facility] [address] [place] [phone] Aliya Pond, [address] [address] Medication Refill Social History Tobacco [...] 0 04/21/2021 [facility] - [...] documented as of this encounter Care Teams Extrusion Machine Operator Relationship Specialty Start Date End Date Deep Pruitt APRN PCP - General 05/22/19 documented as of this encounter
--- OUTSIDE RECORDS SUMMARY | 2024-09-25 12:47 | XMS_ITS | Encounter Summary ---
Author Organization [facility] Address [address] [place] [address] Care Team Providers Care Biology Adjunct Instructor Name Role Phone Deep Pruitt APRN Primary Care Provider Reason for Visit * Reason Comments Medication Refill Encounter Details Date Type Department Care Team ([facility] st Contact Info) Description 05/27/2020 Telephone [facility] [address] [place] [address] Deep Pruitt APRN [address] [place] [address] Medication Refill Social History Tobacco [...] medications and request someone calls him at [phone] documented in this encounter Plan of Treatment [...] documented as of this encounter Care Teams Biology Adjunct Instructor Relationship Specialty Start Date End Date Deep Pruitt APRN PCP - General 05/22/19 documented as of this encounter
--- OUTSIDE RECORDS SUMMARY | 2024-09-25 12:47 | XMS_ITS | Encounter Summary ---
Author Organization [facility] Address [address] [place] [address] Care Team Providers Care Farmhand Name Role Phone Sonal Deep Niko LOPEZ Primary Care Provider Reason for Visit * Reason Comments Medication Refill Encounter Details Date Type Department Care Team (Late st Contact Info) Description 05/12/2020 Refill [facility] Nutrition at [address] [address] Zena Hines PA [address] [place] [address] Medication Refill Social History Tobacco [...] Answer Date Recorded PHQ-2 Score 0 03/13/2020 [facility] of Occupat ional [...] Pike Please review pt no longer seeing [facility] Wellness Dept for DM management. Katrin [...] documented as of this encounter Care Teams Farmhand Relationship Specialty Start Date End Date Deep Pruitt APRN PCP - General 05/22/19 documented as of this encounter
--- OUTSIDE RECORDS SUMMARY | 2024-09-25 12:47 | XMS_ITS | Encounter Summary ---
Author Organization [facility] Address [address] [place] [address] Care Team Providers Care Geropsychologist Name Role Phone Deep Pruitt APRN Primary Care Provider [phone] Reason for Visit * Reason Comments Medication Refill Encounter Details Date Type Department Care Team ([facility] st Contact Info) Description 05/13/2020 Refill [facility] [employer] [address] [place], [place] [phone] Deep Pruitt APRN [address] [place] [address] Medication Refill Social History Tobacco [...] Answer Date Recorded PHQ-2 Score 0 03/13/2020 [facility] of Occupat ional Health - Occupational Stress [...] documented as of this encounter Care Teams Geropsychologist Relationship Specialty Start Date End Date Deep Pruitt APRN PCP - General 05/22/19 documented as of this encounter
--- OUTSIDE RECORDS SUMMARY | 2024-09-25 12:47 | XMS_ITS | Encounter Summary ---
Author Organization [facility] Address [address] [place] [address] Care Team Providers Care Emergency Dispatcher Name Role Phone Deep Pruitt APRN Primary Care Provider Reason for Visit * Reason Comments Medication Refill Encounter Details Date Type Department Care Team ([facility] st Contact Info) Description 05/18/2020 Refill [facility] [address] [place] [address] Deep Pruitt APRN [address] [place] [address] Medication Refill Social History Tobacco Use [...] Answer Date Recorded PHQ-2 Score 0 03/13/2020 [facility] of Occupat ional [...] as of this encounter Care Teams Emergency Dispatcher Relationship Specialty Start Date End Date Deep Pruitt APRN PCP - General 05/22/19 documented as of this encounter
--- OUTSIDE RECORDS SUMMARY | 2024-09-25 12:47 | XMS_ITS | Encounter Summary ---
Author Organization [facility] Address [address] [place] [address] Care Team Providers Care Cable Tender Name Role Phone Sonal Deep Niko LOPEZ Primary Care Provider [phone] Reason for Visit * Reason Comments Medication Refill Encounter Details Date Type Department Care Team ([facility] st Contact Info) Description 04/07/[address] [facility] [address] [place] [phone] Aliya Pond, [address] [address] Medication Refill Social History [...] Date Recorded PHQ-2 Total Score 1 03/24/2021 [facility] [...] as of this encounter Care Teams Cable Tender Relationship Specialty Start Date End Date Deep Pruitt APRN PCP - General 05/22/19 documented as of this encounter
--- OUTSIDE RECORDS SUMMARY | 2024-09-25 12:47 | XMS_ITS | Encounter Summary ---
Author Organization [facility] Address [address] [place] [address] Care Team Providers Care Front Desk Specialist Name Role Phone Deep Pruitt APRN Primary Care Provider Reason for Visit * Reason Comments Medication Refill Encounter Details Date Type Department Care Team ([facility] st Contact Info) Description 03/19/2022 Refill [facility] [address] [place], [place] [phone] Deep Pruitt, JOHN [address] [place] [address] Medication Refill Social History Tobacco [...] as of this encounter Care Teams Front Desk Specialist Relationship Specialty Start Date End Date Deep Pruitt APRN PCP - General 05/22/19 documented as of this encounter
--- OUTSIDE RECORDS SUMMARY | 2024-09-25 12:47 | XMS_ITS | Encounter Summary ---
Author Organization [facility] Address [address] [place] [address] Care Team Providers Care Capture Manager Name Role Phone Deep Pruitt APRN Primary Care Provider Reason for Visit * Reason Comments Medication Refill Encounter Details Date Type Department Care Team ([facility] st Contact Info) Description 02/25/2022 Refill [facility] [address] [place], [place] [phone] Deep Pruitt, JOHN [address] [place] [address] Medication Refill Social History Tobacco Use [...] documented as of this encounter Care Teams Capture Manager Relationship Specialty Start Date End Date Deep Pruitt APRN PCP - General 05/22/19 documented as of this encounter
--- OUTSIDE RECORDS SUMMARY | 2024-09-25 12:48 | XMS_ITS | Encounter Summary ---
Author Organization [facility] Address [address] [place] [address] Care Team Providers Care Administrative Support Coordinator Name Role Phone Deep Pruitt APRN Primary Care Provider [phone] Reason for Visit * Reason Comments Advice Only Other Encounter Details Date Type Department Care Team ([facility] Contact Info) Description 12/02/2021 Telephone [facility] [address] [place] [address] Deep Pruitt APRN [address] [place] [address] Advice Only; Other Social History [...] Date Recorded PHQ-2 Total Score 0 11/17/2021 [facility] of Occupat ional [...] Mira Rios - 12/02/2021 1:32 PM EDT [facility] - [address] calling in regards to med refill request for Carvedilol 25 mg and Gabapentin medications. Call back [phone] * Telephone Encounter - Leah Madera LPN - 12/02/2021 1:21 PM EDT Patient at * Telephone Encounter - Usha Kline - 12/02/2021 12:18 PM EDT Pt is having a lot of stomach pain on the left side and would like to speak with PCP or nurse. Requesting a call back. [facility] callback number [phone] Luxembourger speaking documented in this encounter Plan of [...] as of this encounter Care Teams Administrative Support Coordinator Relationship Specialty Start Date End Date Deep Pruitt APRN PCP - General 05/22/19 documented as of this encounter
--- OUTSIDE RECORDS SUMMARY | 2024-09-25 12:48 | XMS_ITS | Encounter Summary ---
Author Organization [facility] Address [address] [place] [address] Care Team Providers Care Manager Development Name Role Phone Romelia Pruittian Niko LOPEZ Primary Care Provider Reason for Visit * Reason Onset Date Comments Medication Refill 11/10/2021 Encounter Details Date Type Department Care Team (Late st Contact Info) Description 11/10/2021 Refill [facility] Nutrition at 428 [facility] [address] [place] [phone] Anahi Rossi, JOHN [address] [place] [phone] Medication Refill Social History Tobacco Use [...] Date Recorded PHQ-2 Total Score 0 10/12/2021 [facility] of Occupat ional Health [...] as of this encounter Care Teams Manager Development Relationship Specialty Start Date End Date Deep Pruitt APRN PCP - General 05/22/19 documented as of this encounter
--- OUTSIDE RECORDS SUMMARY | 2024-09-25 12:48 | XMS_ITS | Encounter Summary ---
Author Organization [facility] Address [address] [place] [address] Care Team Providers Care Potato Peeler Name Role Phone Romelia Pruittian Niko LOPEZ Primary Care Provider Encounter Details Date Type Department Care Team (Late st Contact Info) Description 11/30/2021 Scanned Document [facility] [address] [place] [address] External, Provider Social History Tobacco Use Types [...] Date Recorded PHQ-2 Total Score 0 11/17/2021 [facility] of Occupat ional Health - [...] as of this encounter Care Teams Potato Peeler Relationship Specialty Start Date End Date Deep Pruitt APRN PCP - General 05/22/19 documented as of this encounter
--- OUTSIDE RECORDS SUMMARY | 2024-09-25 12:48 | XMS_ITS | Encounter Summary ---
Author Organization [facility] [employer] [facility] Address [address] [place] [address] Care Team Providers Care Jailkeeper Name Role Phone Deep Pruitt APRN Primary Care Provider Reason for Visit * Reason Onset Date Comments Medication Refill 11/19/2021 Encounter Details Date Type Department Care Team (Late st Contact Info) Description 11/19/2021 Refill [facility] [address] [facility] [address] [facility] 2nd [place] [address] Yue Dominguez APRN [address] [place] [phone] Medication Refill Social History Tobacco Use Types [...] 0 11/17/2021 [facility] of Occupat ional [...] documented as of this encounter Care Teams Jailkeeper Relationship Specialty Start Date End Date Deep Pruitt APRN PCP - General 05/22/19 documented as of this encounter
--- OUTSIDE RECORDS SUMMARY | 2024-09-25 12:48 | XMS_ITS | Encounter Summary ---
Author Organization [facility] Address [address] [place] [address] Care Team Providers Care Community Case Manager Name Role Phone Deep Pruitt APRN Primary Care Provider Reason for Visit * Reason Comments Medication Refill Encounter Details Date Type Department Care Team ([facility] st Contact Info) Description 03/20/2021 Refill [facility] [address] [place] [address] Deep Pruitt APRN [address] [place] [address] Medication Refill Social History Tobacco Use [...] PHQ-2 Total Score 1 03/24/2021 [facility] of Occupat ional [...] as of this encounter Care Teams Community Case Manager Relationship Specialty Start Date End Date Deep Pruitt APRN PCP - General 05/22/19 documented as of this encounter
--- OUTSIDE RECORDS SUMMARY | 2024-09-25 12:48 | XMS_ITS | Encounter Summary ---
Author Organization [facility] Address [address] [place] [address] Care Team Providers Care Chief Knowledge Officer Name Role Phone Deep Pruitt APRN Primary Care Provider Reason for Visit * Reason Comments Medication Problem Encounter Details Date Type Department Care Team ([facility] st Contact Info) Description 12/21/2021 Refill [facility] [address] [place] [address] Deep Pruitt APRN [address] [place] [address] Medication Problem Social History Tobacco [...] Recorded PHQ-2 Total Score 4 12/20/2021 [facility] of Occupat ional [...] updated information the water pill. Call back [phone] * Telephone Encounter - Sarah Newman - 12/21/2021 1:05 PM EDT Best contact: [phone] Patient Sissy called and stated that she contacted [facility] on and they informed that the [...] as of this encounter Care Teams Chief Knowledge Officer Relationship Specialty Start Date End Date Deep Pruitt APRN PCP - General 05/22/19 documented as of this encounter
--- OUTSIDE RECORDS SUMMARY | 2024-09-25 12:48 | XMS_ITS | Encounter Summary ---
Author Organization [facility] Address [address] [place] [address] Care Team Providers Care Terminal Gauger Supervisor Name Role Phone Deep Pruitt APRN Primary Care Provider Reason for Visit * Reason Comments Medication Refill Encounter Details Date Type Department Care Team ([facility] st Contact Info) Description 12/15/2021 Refill [facility] [address] [place], [place] [phone] Deep Pruitt APRN [address] [place] [address] Medication Refill Social History Tobacco [...] Date Recorded PHQ-2 Total Score 1 12/16/2021 [facility] of [...] documented as of this encounter Care Teams Terminal Gauger Supervisor Relationship Specialty Start Date End Date Deep Pruitt APRN PCP - General 05/22/19 documented as of this encounter
--- OUTSIDE RECORDS SUMMARY | 2024-09-25 12:48 | XMS_ITS | Encounter Summary ---
Author Organization [facility] Address [address] [place] [address] Care Team Providers Care High School Music Instructor Name Role Phone Deep Pruitt JOHN Primary Care Provider Reason for Visit * Reason Comments Medication Refill Encounter Details Date Type Department Care Team (Late st Contact Info) Description 12/03/2021 Refill [facility] Podiatry at [address] [place] [phone] Arben Fountain, NOLVIA [address] [place] [address] Medication Refill Social History Tobacco Use [...] Recorded PHQ-2 Total Score 0 11/17/2021 [facility] - Occupational Stress Questionnaire Answer Date [...] of this encounter Care Teams High School Music Instructor Relationship Specialty Start Date End Date Deep Pruitt APRN PCP - General 05/22/19 documented as of this encounter
--- OUTSIDE RECORDS SUMMARY | 2024-09-25 12:48 | XMS_ITS | Encounter Summary ---
Author Organization [facility] Address [address] [place] [address] Care Team Providers Care Clamp Carrier Operator Name Role Phone Deep Pruitt APRN Primary Care Provider Reason for Visit * Reason Comments Medication Refill Encounter Details Date Type Department Care Team ([facility] st Contact Info) Description 12/18/[address] [facility] [address] [place], [place] [phone] Deep Pruitt APRN [address] [place] [address] Medication Refill Social History Tobacco [...] Date Recorded PHQ-2 Total Score 4 12/20/2021 [facility] of Occupat ional Health [...] documented as of this encounter Care Teams Clamp Carrier Operator Relationship Specialty Start Date End Date Deep Pruitt APRN PCP - General 05/22/19 documented as of this encounter
--- OUTSIDE RECORDS SUMMARY | 2024-09-25 12:48 | XMS_ITS | Encounter Summary ---
Author Organization [facility] Address [address] [place] [address] Care Team Providers Care Corrections Lieutenant Name Role Phone Romelia Pruittian Niko LOPEZ Primary Care Provider Encounter Details Date Type Department Care Team (Late st Contact Info) Description 03/18/2021 Scanned Document [facility] [address] [place] [address] External, Provider Social History Tobacco Use Types [...] Date Recorded PHQ-2 Total Score 2 03/10/2021 [facility] of Occupat ional [...] documented as of this encounter Care Teams Corrections Lieutenant Relationship Specialty Start Date End Date Deep Pruitt APRN PCP - General 05/22/19 documented as of this encounter
--- OUTSIDE RECORDS SUMMARY | 2024-09-25 12:48 | XMS_ITS | Encounter Summary ---
Author Organization [facility] Address [address] [place] [address] Care Team Providers Care Medical Billing Associate Name Role Phone Romelia Pruittian Niko LOPEZ Primary Care Provider Reason for Visit * Reason Onset Date Comments Medication Refill 11/19/2021 Encounter Details Date Type Department Care Team (Late st Contact Info) Description 11/19/2021 Refill [facility] [address] [place] [phone] Carlos Eduardo Joyner MD [address] [place] [phone] Medication Refill Social History Tobacco Use [...] Recorded PHQ-2 Total Score 0 11/17/2021 [facility] - Occupational Stress Questionnaire [...] as of this encounter Care Teams Medical Billing Associate Relationship Specialty Start Date End Date Deep Pruitt APRN PCP - General 05/22/19 documented as of this encounter
--- OUTSIDE RECORDS SUMMARY | 2024-09-25 12:48 | XMS_ITS | Encounter Summary ---
Author Organization [facility] Address [address] [place] [address] Care Team Providers Care Jewelry Sales Name Role Phone Deep Pruitt APRN Primary Care Provider Reason for Visit * Reason Comments Medication Refill Encounter Details Date Type Department Care Team ([facility] st Contact Info) Description 03/08/2021 Refill [facility] [address] [place], [place] [phone] Deep Pruitt APRN [address] [place] [address] Medication Refill Social History Tobacco [...] Date Recorded PHQ-2 Total Score 2 03/10/2021 [facility] of Occupat ional Health [...] as of this encounter Care Teams Jewelry Sales Relationship Specialty Start Date End Date Deep Pruitt APRN PCP - General 05/22/19 documented as of this encounter
--- OUTSIDE RECORDS SUMMARY | 2024-09-25 12:49 | XMS_ITS | Encounter Summary ---
Author Organization [facility] Address [address] [facility] 7t [place] [address] Care Team Providers Care Assistant Federal Public Defender Name Role Phone Katrin Santoyo MD Primary Care Pro vider Edison Vieira MD Unavailable [phone] Joe Devi MD Unavailable [phone] Chuy Mcmanus MD Unavailable Reason for Visit * Reason Comments Med Refill Encounter Details Date Type Department Care Team (Late st Contact Info) Description 07/10/2024 Refill [facility] [address] [place], [place] [phone] June Jarvis ANP [address] [place], [place] [phone] Gout due to renal impairment, unspecified chronicity, [...] Description 10/07/2024 1:00 PM EDT Clinical Support [address] [address] 11/01/2024 1:15 PM EDT Office Visit [address] [address] Katrin Santoyo MD [address] [place] [address] 11/12/2024 9:45 AM EDT Office Visit [address] [address] documented as of this encounter Goals Goal [...] as of this encounter Care Teams Assistant Federal Public Defender Relationship Specialty Start Date End Date Katrin Santoyo MD [address] [place] [address] PCP - General Internal Medicine 12/13/22 Edison Vieira MD [address] [place] [address] Pulmonary Disease 04/07/24 Joe Devi MD [address] [place] [address] 3rd [place] [address] Gastroenterology 04/07/24 Chuy Mcmanus MD [address] [place] [address] [place] [address] Bariatrics 09/25/24 Carito Roche DNP [address] [facility], [address] [place] [address] Nephrology 04/07/24 [employer] 04/11/24 documented as of this encounter
--- OUTSIDE RECORDS SUMMARY | 2024-09-25 12:49 | XMS_ITS | Encounter Summary ---
Author Organization [facility] Address [address] [place] [address] Care Team Providers Care Loan Teller Name Role Phone [place] medina Niko LOPEZ Primary Care Provider Reason for Visit * Reason Onset Date Comments Medication Refill 11/19/2021 Encounter Details Date Type Department Care Team (Late st Contact Info) Description 11/19/2021 Refill [facility] [address] [place] [address] Audelia Childs, DDS [address] [place] [address] Medication Refill Social History Tobacco [...] Date Recorded PHQ-2 Total Score 0 11/17/2021 [facility] of Occupat ional Health - Occupational Stress [...] as of this encounter Care Teams Loan Teller Relationship Specialty Start Date End Date Deep Pruitt APRN PCP - General 05/22/19 documented as of this encounter
--- OUTSIDE RECORDS SUMMARY | 2024-09-25 12:49 | XMS_ITS | Encounter Summary ---
Author Organization [facility] Address [address] [place] [address] Care Team Providers Care Paper Colorer Name Role Phone Deep Pruitt JOHN Primary Care Provider Encounter Details Date Type Department Care Team (Late st Contact Info) Description 02/20/2017 Scanned Document [facility] [address] [place] [address] Francisco Veloz PA [address] [place] [phone] Social History Tobacco Use Types Packs/Day [...] documented as of this encounter Care Teams Paper Colorer Relationship Specialty Start Date End Date Deep Pruitt APRN PCP - General 05/22/19 documented as of this encounter
--- OUTSIDE RECORDS SUMMARY | 2024-09-25 12:49 | XMS_ITS | Encounter Summary ---
Author Organization [facility] Address [address] [place] [address] Care Team Providers Care Business Specialist Name Role Phone Deep Pruitt JOHN Primary Care Provider Encounter Details Date Type Department Care Team (Late st Contact Info) Description 02/12/2016 Scanned Document [facility] [address] [place] [address] Francisco Veloz PA [address] [place] [phone] Social History Tobacco Use Types Packs/Day [...] as of this encounter Care Teams Business Specialist Relationship Specialty Start Date End Date Deep Pruitt APRN PCP - General 05/22/19 documented as of this encounter
--- OUTSIDE RECORDS SUMMARY | 2024-09-25 12:49 | XMS_ITS | Encounter Summary ---
Author Organization [facility] Address [address] [place] [address] Care Team Providers Care Eviction Specialist Name Role Phone Deep Pruitt JOHN Primary Care Provider Encounter Details Date Type Department Care Team (Late st Contact Info) Description 04/05/2017 Scanned Document [facility] [address] [place], [place] [phone] Francisco Veloz PA [address] [place] [phone] Social History Tobacco Use Types Packs/Day [...] documented as of this encounter Care Teams Eviction Specialist Relationship Specialty Start Date End Date Deep Pruitt APRN PCP - General 05/22/19 documented as of this encounter
--- OUTSIDE RECORDS SUMMARY | 2024-09-25 12:49 | XMS_ITS | Encounter Summary ---
Author Organization [facility] Address [address] [place] [address] Care Team Providers Care Featheredge Machine Operator Name Role Phone Deep Pruitt JOHN Primary Care Provider [phone] Encounter Details Date Type Department Care Team (Late st Contact Info) Description 01/02/2017 Scanned Document [facility] [address] [place], [place] [phone] Francisco Veloz PA [address] [place] [address] Social History Tobacco Use Types [...] documented as of this encounter Care Teams Featheredge Machine Operator Relationship Specialty Start Date End Date Deep Pruitt APRN PCP - General 05/22/19 documented as of this encounter
--- OUTSIDE RECORDS SUMMARY | 2024-09-25 12:49 | XMS_ITS | Encounter Summary ---
Author Organization [employer] Address [address] [place] [address] 7[address] [place] [address] Care Team Providers Care Enamel Drier Name Role Phone Katrin Santoyo MD Primary Care Pro vider Edison Vieira MD Unavailable [phone] Joe Devi MD Unavailable [phone] Chuy Mcmanus MD Unavailable [phone] Reason for Visit * Reason Comments Med Refill Encounter Details Date Type Department Care Team (Late st Contact Info) Description 01/02/2023 Refill [facility] [address] [place] [address] Elise Stanford FNP [address] [place] [address] Dept [place] [address] Hemorrhoids, unspecified hemorrhoid type Social History Tobacco [...] 10/07/2024 1:00 PM EDT Clinical Support [address] [address] 11/01/2024 1:15 PM EDT Office Visit [address] [address] Katrin Santoyo MD [address] [place] [address] 11/12/2024 9:45 AM EDT Office Visit [address] [address] documented as of this encounter Goals Goal [...] documented as of this encounter Care Teams Enamel Drier Relationship Specialty Start Date End Date Katrin Santoyo MD [address] [place] [address] PCP - General Internal Medicine 12/13/22 Edison Vieira MD [address] [place] [address] Pulmonary Disease 04/07/24 Joe Devi MD [address] [place] [address] 3rd [place] [address] Gastroenterology 04/07/24 Chuy Mcmanus MD [address] [place] [address] [place] [address] Bariatrics 09/25/24 Carito Roche DNP [address] [place] [address], [address] [place] [address] Nephrology 04/07/24 [employer] 04/11/24 documented as of this encounter
--- OUTSIDE RECORDS SUMMARY | 2024-09-25 12:49 | XMS_ITS | Clinical Summary ---
Author Organization [facility] Address [address] [place] [address] Phone Care Team Providers Care Supervisor Logging Name Role Phone Katrin Brumfield Primary Care [...] 4 12/04/19 25 Active ergocalciferol 1.25 MG (65724 UT) capsule Take 1 capsule (50,000 Units [...] in [facility] 09-09-2020 note Asthma 01/06/2023 01/25/2023 Arthritis 01/06/2023 [...] with Arben Fountain DPM at the [facility] -Will f/u with Pt in [...] (see MRI of Brain from 2017 under [facility] Mult[facility] -Significant deficits on neurologic exam Memory loss and Left handed weakness -Imaging and prior evaluation -Current blood thinning agents is aspirin -Potential details to include, when relevant: poor GAIT, uses a walker to get around -How the diagnosis was made: Pt lived in [facility] at the time, Under Multimedia in [facility] see specific file at specific date [id number].TIF Image MRI Result [facility] - MRI BRAIN CVA -09/25/2016 [id number].TIF Image Evaluation [facility]- Left handed weakness note - 02/20/2017 [...] 2019, the Pt needs to call the [facility] BARIATRIC SURGERY [address] [place], [place] [phone] Diabetic foot 02/07/2019 01/25/2023 01/25/2023 Overview (01/25/2023): Last Assessment & Plan: The Pt continues to deal with bilateral foot pain and wears a pair of Diabetic shoes with specification ordered by his Administrative Specialist Doctor Patient encounter status 02/07/2019 01/25/2023 Overview [...] -Pt will be called biweekly by the [facility] Nurse to review his FBS finger [...] medications -He has been following with the [place] [facility] team and reports taking all of [...] decided to move his family back to [place] area due to being closer to family [...] , 03/24/2022, Additional history exists [place] Care Teams Supervisor Logging Relationship Specialty Start Date End Date Katrin Brumfield [address] [place] [address] PCP - General 04/17/23
--- OUTSIDE RECORDS SUMMARY | 2024-09-25 12:49 | XMS_ITS | Encounter Summary ---
Author Organization [facility] Address [address] [place] [address] Care Team Providers Care Manager Group Home Name Role Phone Deep Pruitt JOHN Primary Care Provider Encounter Details Date Type Department Care Team (Late st Contact Info) Description 09/26/2016 Scanned Document [facility] [address] [place], [place] [phone] External, Provider Social History Tobacco Use Types [...] as of this encounter Care Teams Manager Group Home Relationship Specialty Start Date End Date Deep Pruitt APRN PCP - General 05/22/19 documented as of this encounter
--- OUTSIDE RECORDS SUMMARY | 2024-09-25 12:49 | XMS_ITS | Encounter Summary ---
Author Organization [facility] Address [address] [place] [address] Care Team Providers Care Certified Tower Climber Name Role Phone Deep Pruitt JOHN Primary Care Provider Encounter Details Date Type Department Care Team (Late st Contact Info) Description 02/13/2018 Scanned Document [facility] [address] [place] [address] Francisco Veloz PA [address] [place] [phone] Social History Tobacco Use Types Packs/Day [...] as of this encounter Care Teams Certified Tower Climber Relationship Specialty Start Date End Date Deep Pruitt APRN PCP - General 05/22/19 documented as of this encounter
--- OUTSIDE RECORDS SUMMARY | 2024-09-25 12:49 | XMS_ITS | Encounter Summary ---
Author Organization [facility] Address [address] [place] [address] Care Team Providers Care Ritual Circumciser Name Role Phone Deep Pruitt APRN Primary Care Provider Reason for Visit * Reason Comments Medication Refill Encounter Details Date Type Department Care Team ([facility] st Contact Info) Description 11/17/2021 Refill [facility] [address] [place], [place] [phone] Deep Pruitt APRN [address] [place] [address] Medication Refill Social History Tobacco [...] Recorded PHQ-2 Total Score 0 11/17/2021 [facility] Occupat ional Health [...] documented as of this encounter Care Teams Ritual Circumciser Relationship Specialty Start Date End Date Deep Pruitt APRN PCP - General 05/22/19 documented as of this encounter
--- OUTSIDE RECORDS SUMMARY | 2024-09-25 12:49 | XMS_ITS | Encounter Summary ---
Author Organization [facility] Address [address] [place] [address] Care Team Providers Care Client Strategist Name Role Phone Deep Pruitt JOHN Primary Care Provider Encounter Details Date Type Department Care Team (Late st Contact Info) Description 11/22/2017 Scanned Document [facility] [address] [place], [place] [phone] Francisco Veloz PA [address] [place] [address] Social History Tobacco Use Types [...] as of this encounter Care Teams Client Strategist Relationship Specialty Start Date End Date Deep Pruitt APRN PCP - General 05/22/19 documented as of this encounter
--- OUTSIDE RECORDS SUMMARY | 2024-09-25 12:49 | XMS_ITS | Encounter Summary ---
Author Organization [facility] Address [address] [place] [address] Care Team Providers Care Oil Well Service Operator Helper Name Role Phone Deep Pruitt APRN Primary Care Provider [phone] Reason for Visit * Reason Comments Other Advice Only Encounter Details Date Type Department Care Team ([facility] Contact Info) Description 10/20/2021 Telephone [facility] [address] [place] [address] Deep Pruitt APRN [address] [place] [address] Other; Advice Only Social History [...] Date Recorded PHQ-2 Total Score 0 10/12/2021 [facility] of Occupat ional [...] legs have not stops hurting. Contact number [phone] documented in this encounter Plan of Treatment Not on file documented as of this encounter Visit Diagnoses Not on filedocumented in this encounter Additional Health Concerns Assessment Noted Time PHQ-9 Depression Total Score: 0 10/13/19 22 2:23 PM EDT documented as of this encounter Care Teams Oil Well Service Operator Helper Relationship Specialty Start Date End Date Deep Pruitt APRN PCP - General 05/22/19 documented as of this encounter
--- OUTSIDE RECORDS SUMMARY | 2024-09-25 12:49 | XMS_ITS | Encounter Summary ---
Author Organization [employer] [facility] Address [address] [employer] 7t [place] [address] Care Team Providers Care Woolen Mill Utility Worker Name Role Phone Elise Stanford GREY ROLL WORKER Primary Care Provider [phone] Katrin Santoyo MD Primary Care Pro vider Edison Vieira MD Unavailable [phone] Joe Devi MD Unavailable [phone] Chuy Mcmanus MD Unavailable [phone] Encounter Details Date Type Department Care Team (Late st Contact Info) Description 12/06/2022 Telephone [facility] [address] [place] [address] Susan Manzano LPN Social History Tobacco Use [...] Critical result line call from [place] with [facility]. Patient glucose reported as 411 today. Triage call to follow with patient. Please update PCP with critical result. documented in this encounter Plan of Treatment Upcoming Encounters Date Type Department Care Team (Late st Contact Info) Description 10/07/2024 1:00 PM EDT Clinical Support [address] [address] 11/01/2024 1:15 PM EDT Office Visit [address] [address] Katrin Santoyo MD [address] [place] [address] 11/12/2024 9:45 AM EDT Office Visit [address] [address] documented as of this encounter Visit Diagnoses Not on filedocumented in this encounter Additional Health Concerns Assessment Noted Time PHQ-9 Depression Total Score: 24 11/18/ 023 2:05 PM EDT documented as of this encounter Care Teams Woolen Mill Utility Worker Relationship Specialty Start Date End Date Elise Stanford FNP PCP - General Family Medicine 11/24/22 12/12/22 Katrin Santoyo MD [address] [place] [address] PCP - General Internal Medicine 12/13/22 Edison Vieira MD [address] [place] [address] Pulmonary Disease 04/07/24 Joe Devi MD [address] [place] [address] 3rd [place] [address] Gastroenterology 04/07/24 Chuy Mcmanus MD [address] [place] [address] Bariatrics 09/25/24 Carito Roche DNP [address] [place] [address], [address] [place] [address] Nephrology 04/07/24 [employer] 04/11/24 documented as of this encounter
--- OUTSIDE RECORDS SUMMARY | 2024-09-25 12:49 | XMS_ITS | Encounter Summary ---
Author Organization [facility] [employer] [facility] Address [address] [place] [address] Care Team Providers Care Retail Gift Card Merchandising Name Role Phone Deep Pruitt APRN Primary Care Provider Reason for Visit * Reason Onset Date Comments Medication Refill 11/10/2021 Encounter Details Date Type Department Care Team (Late st Contact Info) Description 11/10/2021 Refill [facility] [address] [facility] 2nd [place] [address] Taylor Malagon, [facility] [address] [place] [phone] Medication Refill Social History Tobacco Use Types [...] Date Recorded PHQ-2 Total Score 0 10/12/2021 [facility] of Occupat ional [facility] - Occupational Stress Questionnaire Answer Date Recorded [...] as of this encounter Care Teams Retail Gift Card Merchandising Relationship Specialty Start Date End Date Deep Pruitt APRN PCP - General 05/22/19 documented as of this encounter
--- OUTSIDE RECORDS SUMMARY | 2024-09-25 12:49 | XMS_ITS | Encounter Summary ---
Author Organization [facility] [facility] Address [address] [place] [address] Care Team Providers Care Software Sales Consultant Name Role Phone Deep Pruitt APRN Primary Care Provider Reason for Visit * Reason Onset Date Comments Medication Refill 11/10/2021 Encounter Details Date Type Department Care Team (Late st Contact Info) Description 11/10/2021 Refill [facility] [address] [place] [address] Anahi Rossi, JOHN [address] [place] [address] Medication Refill Social History Tobacco [...] [facility] of Occupat ional [facility] - Occupational Stress Questionnaire Answer [...] as of this encounter Care Teams Software Sales Consultant Relationship Specialty Start Date End Date Deep Pruitt APRN PCP - General 05/22/19 documented as of this encounter
--- OUTSIDE RECORDS SUMMARY | 2024-09-25 12:49 | XMS_ITS | Encounter Summary ---
Author Organization [facility] Address [address] [place] [address] Care Team Providers Care Tamping Machine Operator Name Role Phone Deep Pruitt APRN Primary Care Provider Encounter Details Date Type Department Care Team ([facility] st Contact Info) Description 10/27/2021 Scanned Document [facility] [address] [place], [place] [phone] Deep Pruitt APRN [address] [place] [address] Social History Tobacco Use Types [...] Recorded PHQ-2 Total Score 0 10/12/2021 [facility] of Occupat ional Health [...] documented as of this encounter Care Teams Tamping Machine Operator Relationship Specialty Start Date End Date Deep Pruitt APRN PCP - General 05/22/19 documented as of this encounter
--- OUTSIDE RECORDS SUMMARY | 2024-09-25 12:49 | XMS_ITS | Encounter Summary ---
Author Organization [facility] [employer] [facility] and [facility] Address [address] [place] [address] Care Team Providers Care Phthalic Acid Purifier Name Role Phone Deep Pruitt APRN Primary Care Provider Reason for Visit * Reason Onset Date Comments Medication Refill 11/19/2021 Encounter Details Date Type Department Care Team (Late st Contact Info) Description 11/19/2021 Refill [facility] [address] [facility] [address] [facility] 2nd [place] [address] Yue Dominguez APRN [address] [place] [phone] Medication Refill Social History Tobacco Use Types [...] documented as of this encounter Care Teams Phthalic Acid Purifier Relationship Specialty Start Date End Date Deep Pruitt APRN PCP - General 05/22/19 documented as of this encounter
--- OUTSIDE RECORDS SUMMARY | 2024-09-25 12:49 | XMS_ITS | Encounter Summary ---
Author Organization [facility] [employer] [facility] Address [address] [place] [address] Care Team Providers Care Feller Operator Name Role Phone Deep Pruitt APRN Primary Care Provider Reason for Visit * Reason Onset Date Comments Medication Refill 11/10/2021 Encounter Details Date Type Department Care Team (Late st Contact Info) Description 11/10/2021 Refill [facility] [address] [facility] [address] [facility] 2nd [place] [address] Taylor Malagon, [facility] [address] [place] [phone] Medication Refill Social History Tobacco Use Types [...] Recorded PHQ-2 Total Score 0 10/12/2021 [facility] of Occupat ional [facility] - Occupational Stress Questionnaire Answer [...] documented as of this encounter Care Teams Feller Operator Relationship Specialty Start Date End Date Deep Pruitt APRN PCP - General 05/22/19 documented as of this encounter
--- OUTSIDE RECORDS SUMMARY | 2024-09-25 12:49 | XMS_ITS | Encounter Summary ---
Author Organization [facility] Address [address] [place] [address] Care Team Providers Care Recycling Program Manager Name Role Phone Deep Pruitt JOHN Primary Care Provider Encounter Details Date Type Department Care Team (Late st Contact Info) Description 01/01/2018 Scanned Document [facility] [address] [place], [place] [address] Francisco Veloz PA [address] [place] [phone] Social History Tobacco Use Types Packs/Day [...] documented as of this encounter Care Teams Recycling Program Manager Relationship Specialty Start Date End Date Deep Pruitt APRN PCP - General 05/22/19 documented as of this encounter
--- OUTSIDE RECORDS SUMMARY | 2024-09-25 12:49 | XMS_ITS | Encounter Summary ---
Author Organization [facility] Address [address] [place] [address] Care Team Providers Care Core Microarchitect Name Role Phone Deep Pruitt JOHN Primary Care Provider Encounter Details Date Type Department Care Team (Late st Contact Info) Description 01/17/2019 Scanned Document [facility] [address] [place], [place] [address] External, Provider Social History Tobacco Use Types [...] documented as of this encounter Care Teams Core Microarchitect Relationship Specialty Start Date End Date Deep Pruitt APRN PCP - General 05/22/19 documented as of this encounter
--- OUTSIDE RECORDS SUMMARY | 2024-09-25 12:49 | XMS_ITS | Clinical Summary ---
Author Organization [address] [facility] Address [address] [place] [address] Phone Care Team Providers Care Plant Chief Name Role Phone Physician, No Pcp Primary [...] History Medical History Date Comments Diabetes mellitus ([facility] V24, [facility] V28) Hypertension REGI (obstructive sleep apnea) Social [...] * Annual BMP Blood Test (11/07/2023) Pathologist [facility] Annual BMP Blood Test Abstracted Historical Provider HEALTH MAINTENANCE Final Result * Lipid panel (09/19/2023) Pathologist [facility] Triglycerides 0 mg/dL Comment:No interpretation Cholesterol 0 mg/dL Comment:No interpretation HDL 0 mg/dL Comment:No interpretation LDL Cholesterol 0 mg/dL Comment:No interpretation Blood Venous blood specimen / Unknown Historical Provider LAB BLOOD ORDERABLES Fauzia l Result * Urine Albumin Creatinine Ratio (05/19/2023) Pathologist [facility] Urine Albumin Creatinine Ratio Abstracted us Historical Provider HEALTH MAINTENANCE Final Result * Hemoglobin A1c (05/17/2023) Pathologist [facility] Hemoglobin A1C 0.0 % Comment:No interpretation Blood Venous blood specimen / Unknown Result [facility] Provider LAB BLOOD ORDERABLES Fauzia l Result * HIV Screening (12/06/2022) HIV Screening Abstracted Result [facility] Provider HEALTH MAINTENANCE Final Result * Hepatitis C Screening (12/06/2022) Pathologist [facility] Hepatitis C Screening Abstracted Result [facility] Provider HEALTH MAINTENANCE Final Result from Last 3 Months or Most Recently Relevant to Health Maintenance Insurance [place] Care Teams Plant Chief Relationship Specialty Start Date End Date Physician, No Pcp PCP - General 04/08/24
--- OUTSIDE RECORDS SUMMARY | 2024-09-25 12:49 | XMS_ITS | Encounter Summary ---
Author Organization [employer] Address [address] [facility] 7t [place] [address] Care Team Providers Care Inbound Call Center Representative Name Role Phone Elise Stanford Primary Care Provider [phone] Katrin Santoyo MD Primary Care Pro vider Edison Vieira MD Unavailable [phone] Joe Devi MD Unavailable [phone] Chuy Mcmanus MD Unavailable [phone] Reason for Visit * Reason Onset Date Comments Referral 11/24/2022 Podiatry Encounter Details Date Type Department Care Team (Late st Contact Info) Description 11/24/2022 Telephone [facility] MEDICINE [address] [place] [address] Elise Stanford FNP [address] [place] [address] Dept [place] [address] Referral (Podiatry/) Social History Tobacco Use Types [...] Anne Ocasio - 11/29/2022 9:46 AM EDT Manager Continuous Improvement re-faxed referral to Dr. Smith's office. Manager Continuous Improvement called Dr. Smith's office and confirmed that referral was received. Manager Continuous Improvement attempted to call patient twice to infirm that he may call to schedule his appt but did not answer and voicemail could not be left due to pt not having voicemail setup. Dr. Smith [address] [place] [address] FAX [phone] * Telephone Encounter - Elizabeth Melo - 11/24/2022 9:51 AM EDT Tc from patient requesting status on podiatry referral. Manager Continuous Improvement provided address and phone number and patient [...] Description 10/07/2024 1:00 PM EDT Clinical Support [address] [address] 11/01/2024 1:15 PM EDT Office Visit [address] [address] Katrin Santoyo MD [address] [place] [address] 11/12/2024 9:45 AM EDT Office Visit [address] [address] documented as of this encounter Visit Diagnoses Not on filedocumented in this encounter Additional Health Concerns Assessment Noted Time PHQ-9 Depression Total Score: 24 023 2:05 PM EDT documented as of this encounter Care Teams Inbound Call Center Representative Relationship Specialty Start Date End Date Elise Stanford FNP PCP - General Family Medicine 11/24/22 12/12/22 Katrin Santoyo MD [address] [place] [address] PCP - General Internal Medicine 12/13/22 Edison Vieira MD [address] [place] [address] Pulmonary Disease 04/07/24 Joe Devi MD [address] [place] [address] 3rd [place] [address] Gastroenterology 04/07/24 Chuy Mcmanus MD [address] [place] [address] [place] [address] Bariatrics 09/25/24 Carito Roche DNP 10 [facility], [address] [place] [address] Nephrology 04/07/24 [employer] 04/11/24 documented as of this encounter
--- OUTSIDE RECORDS SUMMARY | 2024-09-25 12:49 | XMS_ITS | Encounter Summary ---
Author Organization [employer] Address 75 [facility] 7t [place] [address] Care Team Providers Care Licensing Services Clerk Name Role Phone Elise Stanford AUTOMOTIVE PRODUCTION WORKER Primary Care Provider [phone] Katrin Santoyo MD Primary Care Pro vider Edison Vieira MD Unavailable [phone] Joe Devi MD Unavailable [phone] Chuy Mcmanus MD Unavailable [phone] Encounter Details Date Type Department Care Team (Latest Contact Info) Description 09/04/2018 Abstract [facility] CONVERSIONS Dental, Provider, DDS Social History [...] Description 10/07/2024 1:00 PM EDT Clinical Support [facility] MEDICINE [address] [place] [address] 11/01/2024 1:15 PM EDT Office Visit [facility] [address] [place] [phone] Katrin Santoyo MD [address] [place] [address] 11/12/2024 9:45 AM EDT Office Visit [address] [address] documented as of this encounter Visit Diagnoses Not on filedocumented in this encounter Care Teams Licensing Services Clerk Relationship Specialty Start Date End Date Elise Stanford FNP PCP - General Family Medicine 11/24/22 12/12/22 Katrin Santoyo MD [address] [place] [address] PCP - General Internal Medicine 12/13/22 Edison Vieira MD [address] [place] [address] Pulmonary Disease 04/07/24 Joe Devi MD [address] [place] [address] 3rd [place] [address] Gastroenterology 04/07/24 Chuy Mcmanus MD [address] [place] [address] [place] [address] Bariatrics 09/25/24 Carito Roche DNP 10 [facility], [address] [place] [address] Nephrology 04/07/24 [employer] 04/11/24 documented as of this encounter
--- OUTSIDE RECORDS SUMMARY | 2024-09-25 12:49 | XMS_ITS | Encounter Summary ---
Author Organization [employer] Address 75 [facility] 7t [place] [address] Care Team Providers Care Panel Builder Name Role Phone Elise Stanford HAYLEE Primary Care Provider [phone] Katrin Santoyo MD Primary Care Pro vider Edison Vieira MD Unavailable [phone] Joe Devi MD Unavailable [phone] Chuy Mcmanus MD Unavailable [phone] Encounter Details Date Type Department Care Team (Late st Contact Info) Description 12/06/2022 Telephone [facility] MEDICINE [address] [place] [address] Susan Manzano LPN Social History Tobacco Use [...] glucose of 411 today. Call placed via [employer] store stock associate [phone] patient updated that BG this morning elevated. [...] Description 10/07/2024 1:00 PM EDT Clinical Support [address] [address] 11/01/2024 1:15 PM EDT Office Visit [address] [address] Katrin Santoyo MD [address] [place] [address] 11/12/2024 9:45 AM EDT Office Visit [address] [address] documented as of this encounter Visit Diagnoses Not on filedocumented in this encounter Additional Health Concerns Assessment Noted Time PHQ-9 Depression Total Score: 24 11/18/ 023 2:05 PM EDT documented as of this encounter Care Teams Panel Builder Relationship Specialty Start Date End Date Elise Satnford FNP PCP - General Family Medicine 11/24/22 12/12/22 Katrin Santoyo MD [address] [place] [address] PCP - General Internal Medicine 12/13/22 Edison Vieira MD [address] [place] [address] Pulmonary Disease 04/07/24 Joe Devi MD [address] [place] [address] 3rd [place] [address] Gastroenterology 04/07/24 Chuy Mcmanus MD [address] [place] [address] [place] [address] Bariatrics 09/25/24 Carito Roche DNP 10 [facility], [address] [place] [address] Nephrology 04/07/24 [employer] 04/11/24 documented as of this encounter
--- OUTSIDE RECORDS SUMMARY | 2024-09-25 12:50 | XMS_ITS | Encounter Summary ---
Author Organization [employer] [facility] Address [address] [place] [address] Care Team Providers Care Inside Sales Account Executive Name Role Phone Sonal Deep Niko LOPEZ Primary Care Provider Reason for Visit * Reason Comments Medication Refill Encounter Details Date Type Department Care Team (Late st Contact Info) Description 01/04/2021 Refill [facility] Nutrition at [address] [address] Zena Hines PA [address] [place] [phone] Medication Refill Social History Tobacco Use [...] documented as of this encounter Care Teams Inside Sales Account Executive Relationship Specialty Start Date End Date Deep Pruitt APRN PCP - General 05/22/19 documented as of this encounter
--- OUTSIDE RECORDS SUMMARY | 2024-09-25 12:50 | XMS_ITS | Encounter Summary ---
Author Organization [facility] Address [address] [place] [address] Care Team Providers Care Mortgage Lender Name Role Phone Deep Pruitt APRN Primary Care Provider Reason for Visit * Reason Comments Medication Problem Encounter Details Date Type Department Care Team ([facility] Contact Info) Description 10/11/2021 Telephone [facility] [address] [place] [address] Deep Pruitt APRN [address] [place] [address] Medication Problem Social History Tobacco [...] 08 of October Spoke to sissy via unit support representative #[phone] (patti) patient states she spoke to the [...] if patient [facility] [place] [facility] [address] . Best contact: [phone] documented in this encounter Plan of Treatment Not on file documented as of this encounter Visit Diagnoses Not on filedocumented in this encounter Additional Health Concerns Infection Onset Date Last Indicated Resolved Time COVID-19 09/29/2021 09/29/2021 10/19/2021 7:19 PM EDT Assessment Noted Time PHQ-9 Depression Total Score: 0 10/08/19 22 1:27 PM EDT documented as of this encounter Care Teams Mortgage Lender Relationship Specialty Start Date End Date Deep Pruitt APRN PCP - General 05/22/19 documented as of this encounter
--- OUTSIDE RECORDS SUMMARY | 2024-09-25 12:50 | XMS_ITS | Encounter Summary ---
Author Organization [facility] Address [address] [place] [address] Care Team Providers Care Wire Drawing Setter Name Role Phone Deep Pruitt APRN Primary Care Provider [phone] Reason for Visit * Reason Comments Medication Refill Encounter Details Date Type Department Care Team ([facility] st Contact Info) Description 11/24/2020 Telephone [facility] [address] [place] [address] Deep Pruitt APRN [address] [place] [address] Medication Refill Social History Tobacco [...] Date Recorded PHQ-2 Total Score 0 11/18/2020 [facility] of Occupat ional Health [...] of certain medication. Call back number is [phone] (bulgarian speaking) preferred pharmacy is [facility] [address] [address] documented in this encounter Plan [...] as of this encounter Care Teams Wire Drawing Setter Relationship Specialty Start Date End Date Deep Pruitt APRN PCP - General 05/22/19 documented as of this encounter
--- OUTSIDE RECORDS SUMMARY | 2024-09-25 12:50 | XMS_ITS | Encounter Summary ---
Author Organization [facility] [facility] Address [address] [place] [phone] Care Team Providers Care Overlock Collar Setter Name Role Phone Deep Pruitt APRN Primary Care Provider Reason for Visit * Reason Onset Date Comments Medication Refill 10/12/2021 Encounter Details Date Type Department Care Team (Late st Contact Info) Description 10/12/2021 Refill [facility] [address] [facility] [address] [facility] 2nd [place] [address] Taylor Malagon, [facility] [address] [place] [phone] Medication Refill Social History Tobacco Use Types [...] Date Recorded PHQ-2 Total Score 0 10/12/2021 [facility] of Occupat ional [facility] [...] documented as of this encounter Care Teams Overlock Collar Setter Relationship Specialty Start Date End Date Deep Pruitt APRN PCP - General 05/22/19 documented as of this encounter
--- OUTSIDE RECORDS SUMMARY | 2024-09-25 12:50 | XMS_ITS | Encounter Summary ---
Author Organization [facility] [employer] [facility] and [facility] Address [address] [place] [address] Care Team Providers Care Circulation Analyst Name Role Phone Deep Pruitt APRN Primary Care Provider [phone] Reason for Visit * Reason Onset Date Comments Medication Refill 09/20/2021 Encounter Details Date Type Department Care Team (Late st Contact Info) Description 09/20/2021 Refill [facility] [address] [facility] [address] [facility] 2nd [place] [address] Ricarda Du MD [address] [place] [phone] Medication Refill Social History Tobacco Use Types [...] Date Recorded PHQ-2 Total Score 5 09/14/2021 [facility] of Occupat ional [...] as of this encounter Care Teams Circulation Analyst Relationship Specialty Start Date End Date Deep Pruitt APRN PCP - General 05/22/19 documented as of this encounter
--- OUTSIDE RECORDS SUMMARY | 2024-09-25 12:50 | XMS_ITS | Encounter Summary ---
Author Organization [employer] Address 75 [facility] 7t [place] [address] Care Team Providers Care Fibre Composite Technician Name Role Phone Katrin Santoyo MD Primary Care Pro vider Edison Vieira MD Unavailable [phone] Joe Devi MD Unavailable [phone] Chuy Mcmanus MD Unavailable [phone] Reason for Visit * Reason Onset Date Comments Referral 04/05/2023 Encounter Details Date Type Department Care Team ([facility] st Contact Info) Description 04/05/2023 Telephone [facility] MEDICINE [address] [place], [place] [phone] Katrin Santoyo MD [address] [place], [place] [phone] Referral Social History Tobacco Use Types Packs/Day [...] Bhardwaj - 04/06/2023 10:27 AM EST Called [facility] Gastro for an update and [...] Gastro made on 04/04/2023 sent to [facility], states that they called facility and facility informs that their missing a summary form. Please contact pt at [phone] Upper Sorbian Speaker documented in this encounter Plan of Treatment Upcoming Encounters Date Type Department Care Team ([facility] st Contact Info) Description 10/07/2024 1:00 PM EDT Clinical Support [facility] MEDICINE [address] [place] [address] 11/01/2024 1:15 PM EDT Office Visit [facility] MEDICINE [address] [place] [address] Katrin Santoyo MD [address] [facility] [place] [address] 11/12/2024 9:45 AM EDT Office Visit [facility] MEDICINE [address] [place] [address] documented as of this encounter Goals Goal [...] documented as of this encounter Care Teams Fibre Composite Technician Relationship Specialty Start Date End Date Katrin Santoyo MD [address] [facility] [place] [address] PCP - General Internal Medicine 12/13/22 Edison Vieira MD [address] [place] [address] [place] [address] Pulmonary Disease 04/07/24 Joe Devi MD [address] [place] [address] 3rd [place] [address] Gastroenterology 04/07/24 Chuy Mcmanus MD [address] [place] [address] [place] [address] Bariatrics 09/25/24 Carito Roche DNP 10 [facility], [address] [place] [address] Nephrology 04/07/24 [employer] 04/11/24 documented as of this encounter
--- OUTSIDE RECORDS SUMMARY | 2024-09-25 12:50 | XMS_ITS | Encounter Summary ---
Author Organization [employer] [facility] Address [address] [place] [address] Care Team Providers Care Landing Man Name Role Phone Deep Pruitt APRN Primary Care Provider Reason for Visit * Reason Comments Medication Refill Encounter Details Date Type Department Care Team ([facility] st Contact Info) Description 01/29/2021 Refill [facility] [address] [place], [place] [phone] Deep Pruitt APRN [address] [place] [address] Medication Refill Social History Tobacco [...] Date Recorded PHQ-2 Total Score 6 01/21/2021 [facility] of Occupat ional [...] documented as of this encounter Care Teams Landing Man Relationship Specialty Start Date End Date Deep Pruitt APRN PCP - General 05/22/19 documented as of this encounter
--- OUTSIDE RECORDS SUMMARY | 2024-09-25 12:50 | XMS_ITS | Encounter Summary ---
Author Organization [facility] [facility] and [facility] Address [address] [place] [phone] Care Team Providers Care Color Paste Mixer Name Role Phone Deep Pruitt APRN Primary Care Provider Reason for Visit * Reason Onset Date Comments Medication Refill 09/30/2021 Encounter Details Date Type Department Care Team (Late st Contact Info) Description 09/30/2021 Refill [facility] [address] [facility] [address] [facility] 2nd [place] [address] Rubin Valderrama, [facility] [address] [place] [phone] Medication Refill Social History Tobacco Use Types [...] [facility] of Occupat ional [facility] - Occupational Stress Questionnaire Answer Date [...] unknown at home. Defer to [facility] pharmacy team for antihypertensive management. Current regimen [...] documented as of this encounter Care Teams Color Paste Mixer Relationship Specialty Start Date End Date Deep Pruitt APRN PCP - General 05/22/19 documented as of this encounter
--- OUTSIDE RECORDS SUMMARY | 2024-09-25 12:50 | XMS_ITS | Encounter Summary ---
Author Organization [employer] Address 75 [facility] 7t [place] [address] Care Team Providers Care Veterinarian Laboratory Animal Care Name Role Phone Katrin Santoyo MD Primary Care Pro vider Edison Vieira MD Unavailable [phone] Joe Devi MD Unavailable [phone] Chuy Mcmanus MD Unavailable [phone] Encounter Details Date Type Department Care Team (Late st Contact Info) Description 06/21/2023 Abstract [facility] MEDICINE [address] [place], [place] [phone] Katrin Santoyo MD [address] [place], [place] [phone] Social History Tobacco Use Types Packs/Day Years [...] Description 10/07/2024 1:00 PM EDT Clinical Support [address] [address] 11/01/2024 1:15 PM EDT Office Visit [address] [address] Katrin Santoyo MD [address] [place] [address] 11/12/2024 9:45 AM EDT Office Visit [address] [address] documented as of this encounter Goals Goal [...] documented as of this encounter Care Teams Veterinarian Laboratory Animal Care Relationship Specialty Start Date End Date Katrin Santoyo MD [address] [place] [address] PCP - General Internal Medicine 12/13/22 Edison Vieira MD [address] [facility] [place] [address] Pulmonary Disease 04/07/24 Joe Devi MD 11 [facility] 3rd [place] [address] Gastroenterology 04/07/24 Chuy Mcmanus MD [address] [place] [address] [place] [address] Bariatrics 09/25/24 Carito Roche DNP 10 [facility], [address] [place] [address] Nephrology 04/07/24 [employer] 04/11/24 documented as of this encounter
--- OUTSIDE RECORDS SUMMARY | 2024-09-25 12:50 | XMS_ITS | Encounter Summary ---
Author Organization [facility] Address [address] [place] [address] Care Team Providers Care Field Scout Name Role Phone Deep Pruitt APRN Primary Care Provider Encounter Details Date Type Department Care Team (Latest Contact Info) Description 09/13/2021 Transcribed Orders [facility] Laboratory Specimens [address] [place] [address] Deep Pruitt APRN [address] [place] [address] Encounter for routine screening for [...] - 3.900 ng/mL 09/13/2021 1:44 PM EDT [facility] MEDICINE Prostate Specific Antigen, Free (YH) 0.28 0.00 - 3.90 ng/mL 09/13/2021 1:44 PM EDT [facility] Comment:Prostate Specific An tigen, Free Percentage can not be calculated. PSA, Total value out of appropriate range. Blood Venipuncture / Unknown 09/09/2021 12:05 PM EDT 09/13/2021 10:48 AM EDT Narrative [facility] MEDICINE - 09/13/2021 [...] Pruitt APRN LAB BLOOD ORDERABLES Final Result [facility] MEDICINE [address] [place] [address] documented in this encounter Visit Diagnoses Diagnosis [...] documented as of this encounter Care Teams Field Scout Relationship Specialty Start Date End Date Deep Pruitt APRN PCP - General 05/22/19 documented as of this encounter
--- OUTSIDE RECORDS SUMMARY | 2024-09-25 12:50 | XMS_ITS | Encounter Summary ---
Author Organization [facility] Address [address] [place] [address] Care Team Providers Care Dough Mixer Helper Name Role Phone [place] Niko LOPEZ Primary Care Provider Encounter Details Date Type Department Care Team (Late st Contact Info) Description 02/19/2020 Scanned Document [facility] [address] [place], [place] [phone] Arben Fountain, [employer] [address] [place] [address] Social History Tobacco Use Types Packs/Day [...] Answer Date Recorded PHQ-2 Score 2 10/02/2019 [facility] of Occupat ional Health - Occupational Stress [...] documented as of this encounter Care Teams Dough Mixer Helper Relationship Specialty Start Date End Date Deep Pruitt APRN PCP - General 05/22/19 documented as of this encounter
--- OUTSIDE RECORDS SUMMARY | 2024-09-25 12:50 | XMS_ITS | Encounter Summary ---
Author Organization [facility] and [facility] Address [address] [place] [address] Care Team Providers Care Featheredger And Reducer Machine Name Role Phone Deep Pruitt APRN Primary Care Provider Reason for Visit * Reason Onset Date Comments Medication Refill 10/12/2021 Encounter Details Date Type Department Care Team (Late st Contact Info) Description 10/12/2021 Refill [facility] at [address] [place] [address] Anahi Rossi, JOHN [address] [place] [address] Medication Refill Social History Tobacco [...] Date Recorded PHQ-2 Total Score 0 10/12/2021 [facility] of Occupat ional [facility] - Occupational Stress Questionnaire Answer Date Recorded [...] documented as of this encounter Care Teams Featheredger And Reducer Machine Relationship Specialty Start Date End Date Deep Pruitt APRN PCP - General 05/22/19 documented as of this encounter
--- OUTSIDE RECORDS SUMMARY | 2024-09-25 12:50 | XMS_ITS | Encounter Summary ---
Author Organization [employer] [facility] Address [address] [place] [address] Care Team Providers Care Product Manufacturing Professional Name Role Phone Deep Pruitt APRN Primary Care Provider [phone] Reason for Visit * Reason Comments Medication Refill Encounter Details Date Type Department Care Team ([facility] st Contact Info) Description 11/11/2020 Refill [facility] [address] [place] [address] Deep Pruitt APRN [address] [place] [address] Medication Refill Social History Tobacco Use [...] Answer Date Recorded PHQ-2 Score 2 07/07/2020 [facility] of Occupat ional [facility] - Occupational Stress Questionnaire Answer Date [...] as of this encounter Care Teams Product Manufacturing Professional Relationship Specialty Start Date End Date Deep Pruitt APRN PCP - General 05/22/19 documented as of this encounter
--- OUTSIDE RECORDS SUMMARY | 2024-09-25 12:50 | XMS_ITS | Encounter Summary ---
Author Organization [facility] [employer] [facility] and [facility] Address [address] [place] [phone] Care Team Providers Care Knitted Cloth Examiner Name Role Phone Deep Pruitt APRN Primary Care Provider Reason for Visit * Reason Onset Date Comments Medication Refill 09/30/2021 Encounter Details Date Type Department Care Team (Late st Contact Info) Description 09/30/2021 Refill [facility] at [address] [place] [phone] [facility] 2nd [place] [address] Kaity Harris, UMBRELLA SUPERVISOR [address] [place] [phone] Medication Refill Social History Tobacco Use Types [...] Total Score 5 09/14/2021 [facility] - Occupational Stress Questionnaire Answer [...] documented as of this encounter Care Teams Knitted Cloth Examiner Relationship Specialty Start Date End Date Deep Pruitt APRN PCP - General 05/22/19 documented as of this encounter
--- OUTSIDE RECORDS SUMMARY | 2024-09-25 12:50 | XMS_ITS | Clinical Summary ---
Author Organization [employer] Address [address] [facility] [address] [place] [address] Care Team Providers Care Remotely Operated Vehicle Name Role Phone Katrin Santoyo MD Primary Care Pro vider Edison Vieira MD Unavailable [phone] Joe Devi MD Unavailable [phone] Chuy Mcmanus MD Unavailable [phone] Allergies Active Allergy Reactions Criticality Noted Date [...] Continuous Blood Gluc Sensor (Dexcom G7 Sensor) misc 023 Active DULoxetine (Cymbalta) [address] [...] (KlonoPIN) 0.5 MG tablet 1 tab TID 07/14/2 023 Active divalproex (Depakote ER) 500 MG 24 hr tablet Take 2 tablets by mouth at bedtime Active Blood Glucose Monitoring Suppl (FreeStyle [place] Lite) w/Device kitIndications: Type 2 diabetes mellitus with diabetic nephropathy, with long-term current use of insulin (CMS/HCC) Use to test blood sugar bid dx dm 1 kit Active capsaicin (Capzasin-HP) 0.1 % creamIndication s:Chronic radicular lumbar pain Apply thin layer by topical route up to 4 times daily as needed for pain. 45 g 3 Active glucose 4 g chewable tablet Chew 4 tablets (16 g) if needed for low blood sugar. 50 tablet 2 2024 Active omega-3 acid ethyl esters (Lovaza) [...] feet Active ergocalciferol (Vitamin D-2) 1.25 MG (43960 UT) capsule Take 1 capsule by mouth. Every Monday and Active lidocaine (Lidoderm) 5 % patch Apply 1 patch topically Once per day. 12 hours on and 12 hours off Active SSD 1 % cream Apply 1 Application. topically Once per day. Active FreeStyle lancetsIndicati ons:Type 2 diabetes mellitus with diabetic nephropathy, with long-term current use of insulin ([facility]) 1 each by Other route before breakfast, before lunch, before evening meal, and at bedtime. Use bid, dx type 2 diabetes 100 each Active Alcohol Swabs (B-D SINGLE USE SWABS REGULAR) pads Apply 1 Units topically 4 times daily. 100 each Active B-D UF III MINI PEN NEEDLES 31G X 5 MM [facility] Use as instructed 100 each 11 Active FREESTYLE LITE test strip Use to [...] BY MOUTH EVERY EVENING 45 tablet 2 024 Active FT Lubricant Eye Drops 0.5 % ophthalmic solution INSTILL 1 DROP IN EACH EYE NEEDED DRY EYES 30 each 1 025 Active Advair HFA 230-21 MCG/ACT inhalerIndicati [...] MORNING 90 tablet 1 025 Active Nebulizers [facility] Use nebulizer as instructed 1 each 025 [...] mg) Once per day. 180 tablet 024 05/14/ 2025 cholecalciferol (Vitamin D-3) 50 MCG (1999 UT) [...] PRN Indication: chronic radicular lumbar pain Last [employer] Agreement: 04/02/24 Additional considerations: BZO from outside [...] Continues on 2L oxygen - Followed by [facility] Pulm - Dr. Vieira Right foot pain [...] lesions. Secondary dental caries 10/23/2023 Fractured dental anglican without loss of mat erial 10/23/2023 Alkaline [...] of multiple topical analgesics after discussion with [facility] Pharmacist - meds sent to pharmacy [...] 2022, f/u appt 01/2023 Dental: Refer pt [facility] on 12/13/22 Moderate persistent asthma 11/07/2022 Overview (11/07/2022): -The Pt saw Pulmonology in [place] 6460805/21/2021 -stable with the use of Advair and [...] Will focus on improving diabetic control Discuss critical care educator referral at next visit F/u 1 [...] (04/07/2024 2:05 PM EST): - Following with [facility] - CASSIDY Roche - Plan [...] disordered breathing. RECOMMENDATIONS / PLAN : -Current [employer] recommendations for treatment of [...] S on 17 cm. - Following with [facility] Pulmonology - Dr. Vieira - Encouraged to [...] told him that it is not a adjunct faculty for medical terminology med. He will fu w PCP next [...] told him that it is not a adjunct faculty for medical terminology med. He will fu w PCP next week. Use heat to affected area Diabetes mellitus with diabetic nephropathy 12/09/2022 12/13/2022 History of colonoscopy 12/09/202201/23 Overview (12/09/2022): information and pathology of colonospcy in [facility] 09-09-2020 note Hyperlipidemia due to [...] Encounters Date Type Department Care Team Description 09/25/2024 Refill [facility] [address] [place] [phone] Vivian Hoyt MD 09/23/2024 Telephone [facility] [address] [place] [phone] Kassidy Ly RN Error (VOID this visit) 09/20/2024 Results Follow-Up [facility] [address] [place] [address] [phone] Billy Martínez MD POCT glucose manually resulted, Uric acid, Basic Metabolic Panel 09/19/2024 1:20 PM EDT Office Visit [facility] [address] [place] [phone] Billy Martínez MD Bilateral foot pain (Primary Dx); Type 2 diabetes mellitus with stage 3 chronic kidney disease, with long-term current use of insulin, unspecified whether stage 3a or 3b CKD ([facility]) 09/19/2024 Results Follow-Up [address] [address] Katrin Santoyo MD POCT Glucose, POCT HGB A1C, Cortisol Random, Lipase 09/19/2024 Results Follow-Up [address] [address] Katrin Santoyo MD PTH, Intact Without Calcium 09/19/2024 Orders Only GENERIC EXTERNAL DATA DEPARTMENT Provider, Generic External Data 09/17/2024 9:45 AM EDT Office Visit [address] [address] Moriah Herbert FNP Chronic radicular lumbar pain (Primary Dx); Long-term current use of opiate analgesic 09/17/2024 Travel 09/03/2024 1:00 PM EDT Office Visit [facility] [address] [address] Moriah Herbert FNP Papular rash, localized (Primary Dx) 09/03/2024 Travel 09/02/[address] [address] Katrin Santoyo MD Medication Question 08/28/2024 Refill [facility] [address] [address] Dhara Cardenas MD 08/27/[address] [phone] Katrin Santoyo MD Durable Medical Equipment (Compression stockings) 08/23/[address] [phone] Taylor Thomas RN PT Referral/MOCA 08/22/2024 1:15 PM EDT Office Visit [address] [address] Katrin Santoyo MD Adrenal adenoma, unspecified laterality (Primary Dx); Type 2 diabetes mellitus with stage 3 chronic kidney disease, with long-term current use of insulin, unspecified whether stage 3a or 3b CKD ([facility]); Acute gout, unspecified cause, unspecified site; Dietary counseling; Exercise counseling; Chronic pancreatitis, unspecified pancreatitis type ([facility]); Diabetes mellitus, labile ([facility]); Chronic respiratory failure with hypoxia ([facility]); Moderate persistent asthma without complication; Neuropathy due to type 2 diabetes mellitus ([facility]); Obstructive sleep apnea; Primary hypertension; Adrenal adenoma, right; Chronic kidney disease (CKD) stage G3a/A3, moderately decreased glomerular filtration rate (GFR) between 45-59 mL/min/1.73 square meter and albuminuria creatinine ratio greater than 300 mg/g ([facility]); Acute gout of left foot, unspecified cause; Bilateral leg edema; Secondary dental caries; Health care maintenance; Memory loss; Skin pruritus 08/22/2024 Travel 08/20/2024 Refill [facility] [address] [place] [phone] Katrin Santoyo MD 08/17/2024 Refill [facility] [address] [place] [phone] Shirin Albarran MD Chronic radicular lumbar pain 08/15/2024 Telephone [facility] [address] [place] [phone] Katrin Santoyo MD chart prep 08/13/2024 9:45 AM EDT Office Visit [address] [address] Moriah Herbert FNP Chronic radicular lumbar pain (Primary Dx); Long-term current use of opiate analgesic 08/13/2024 Travel 08/01/[address] [address] June Jarvis ANP DME from [employer] 07/30/2024 Orders Only [facility] [address] [place] [phone] June Jarvis ANP Gastroesophageal reflux disease, unspecified whether esophagitis present (Primary Dx) 07/29/2024 Orders Only GENERIC EXTERNAL DATA DEPARTMENT Provider, Generic External Data 07/23/2024 Orders Only [facility] External Provider, [facility] 07/19/2024 Population Health Risk Score [facility] (C3) Department [address] [place] [phone] Provider, Population Health Generic 07/17/2024 5:00 PM EDT Office Visit [facility] [address] [place] [phone] Cleo Reynoso, DIGESTER COOK Diarrhea, unspecified type (Primary Dx) 07/16/2024 9:45 AM EDT Office Visit [facility] [address] [place] [phone] Moriah Herbert, DIGESTER COOK Chronic radicular lumbar pain (Primary Dx); Long-term current use of opiate analgesic; Gout involving toe of left foot, unspecified cause, unspecified chronicity; Type 2 diabetes mellitus with stage 3 chronic kidney disease, with long-term current use of insulin, unspecified whether stage 3a or 3b CKD ([facility]) 07/16/2024 Travel 07/10/2024 2:00 PM EST Office Visit [facility] [address] [place] [phone] Katrin Leroy MD Lipoma of other specified sites (Primary Dx); Acute gout of left foot, unspecified cause; Primary hypertension; Burn 07/10/2024 Refill [facility] [address] [place] [phone] June Jarvis ANP Gout due to renal impairment, unspecified chronicity, unspecified site 07/03/2024 Travel 07/03/2024 Telephone [facility] [address] [place], [place] [phone] Gabriela Rea RN r/s chronic pain group 07/03/2024 Refill [facility] [address] [place] [phone] Katrin Santoyo MD 07/02/2024 Travel from Last 3 Months Immunizations Immunization Administration [...] Description 10/07/2024 1:00 PM EDT Clinical Support [address] [address] 11/01/2024 1:15 PM EDT Office Visit [address] [address] Katrin Santoyo MD [address] [place] [phone] 11/12/2024 9:45 AM EDT Office Visit [address] [address] Health Maintenance Due Date Last Done Comments [...] 2:44 PM EDT Adrenal adenoma, unspecified laterality METANEPHRINES, FRACT, FREE, LC/MS/MS, PLASMA Routine 09/19/2024 2:44 PM EDT Adrenal adenoma, [...] 11:31 AM EDT Chronic radicular lumbar pain LIPID PANEL, STANDARD Routine 09/19/2023 1:43 PM [...] Recently Relevant to Health Maintenance Results * Metanephrines, Fractionated, Free, LC/MS/MS, Plasma (09/19/2024 2:44 PM EDT) Metanephrine, Free <25 <=57 pg/mL [facility] Comment:This test was develo ped and its analytical performancecharacteristics have been determined by [employer] [place], [place]. It hasnot been cleared or approved by the U.S. Food and DrugAdministration. This assay has been validated pursuantto the CLIA regulations and is used for clinicalpurposes. Normetanephrine, Free 136 <=148 pg/mL [facility] Comment:This test was develo ped and its analytical performancecharacteristics have been determined by [employer] [place], [place]. It hasnot been cleared or approved by the U.S. Food and DrugAdministration. This assay has been validated pursuantto the CLIA regulations and is used for clinicalpurposes. Total, Free (MN+NMN) 136 <=205 pg/mL [facility] Comment: For additional information, please refer tohttp://education.Campus Diaries.Blyk/faq/MetFractFree(This link is being provided for informational/educatioinformational/educational purposes only.)Elevations >4-fold upper reference range: stronglysuggestive of a pheochromocytoma(1).Elevations >1- 4-fold upper reference range:significant but not diagnostic, may be due tomedications or stress. Suggest running 24 hr urinefractionated metanephrines and/or serum Chromagranin Afor confirmation.Reference:(1)Boyd Bingham et al, Plasma Chromogranin Aor Urine Fractionated Metanephrines Follow-Up TestingImproves the Diagnostic Accuracy of Plasma FractionatedMetanephrines for Pheochromocytoma. The Journal ofClinical Endocrinology # Metabolism 93(1), 91-95, 2007.This test was developed and its analytical performancecharacteristics have been determined by [facility] [place]. It hasnot been cleared or approved by the U.S. Food and DrugAdministration. This assay has been validated pursuantto the CLIA regulations and is used for clinicalpurposes.THIS TEST WAS PERFORMED AT:[employer] [place], [place] ??[id number] HAILE MD,PHD Blood Venous blood specimen / Unknown 09/19/2024 2:44 PM EDT 09/19/2024 4:10 PM EDT us Katrin López MD LAB BLOOD ORDERAB LES Final Result [facility] [address] [place] [phone] * Cortisol Random (09/19/2024 2:44 PM EDT) Cortisol Random 5.1 ug/dL [facility] Comment:Reference Range*: Be fore 10 am 6.2-19.4 ug/dL After 5 pm 2.3-11.9 ug/dL*Please interpret above results accordingly.This test was performed using the [employer] chemiluminescentmethod. Values obtained from different assay methods cannotbe used interchangeably.Patients receiving fludrocortisone, prednisolone orprednisone may show artificially elevated cortisol valuesdue to cross-reactivity. 09/19/2024 2:44 PM EDT 09/19/2024 4:10 PM EDT us Katrin López MD LAB BLOOD ORDERAB LES Final Result Performing Organization Address City/[facility]/ZIP Co de Phone Number [facility] [address] [place] [phone] * (ABNORMAL) Vitamin D, 25-Hydroxy, Total, Immunoassay (09/19/2024 2:44 PM EDT) Vitamin D 25-OH Total 12.7(L) >30 ng/mL [facility] Comment: Health Based Reference Values*< 20 ??ng/mL ??Nswlblwky57-20 ng/mL ??Insufficient> 30 ??ng/mL ??Sufficient*Juan LEWIS. N [...] LES Final Result Performing Organization Address City/[facility]/ZIP Co de Phone Number [facility] [address] [place] [phone] * (ABNORMAL) Iron And Total Iron Binding Capacity (09/19/2024 2:44 PM EDT) Iron 56 45 - 160 mcg/dL [facility] Total Iron Binding Capacity 192(L) 228 - 428 mcg/dL [facility] Percent Iron Saturation 29 15 - 50 % [facility] Unsaturated Iron Binding 136 ug/dL [facility] 09/19/2024 2:44 PM EDT 09/19/2024 4:10 PM EDT us Generic External Data Provider LAB BLOOD ORDERAB LES Final Result Performing Organization Address [facility] Co de Phone Number [facility] [address] [place] [phone] * Uric acid (09/19/2024 2:44 PM EDT) Pathologist [facility] Uric Acid 6.3 3.4 - 7.0 mg/dL [facility] Blood Venous blood specimen / Unknown 09/19/2024 2:44 PM EDT 09/19/2024 4:10 PM EDT us Billy Martínez MD LAB BLOOD ORDERABLES Final Resul t Performing Organization Address [facility] Co de Phone Number [facility] [address] [place] [phone] * Phosphate (As Phosphorus) (09/19/2024 2:44 PM EDT) Pathologist [facility] Phosphorus 3.5 2.7 - 4.5 mg/dL [facility] 09/19/2024 2:44 PM EDT 09/19/2024 4:10 PM EDT us Generic External Data Provider LAB BLOOD ORDERAB LES Final Result Performing Organization Address [facility] Co de Phone Number [facility] [address] [place] [phone] * (ABNORMAL) PTH, Intact Without Calcium (09/19/2024 2:44 PM EDT) Parathyroid Hormone, Intact 683.9(H) 8.7 - 77.1 pg/mL [facility] 09/19/2024 2:44 PM EDT 09/19/2024 4:10 PM EDT us Generic External Data Provider LAB BLOOD ORDERAB LES Final Result Performing Organization Address [facility]/ZIP Co de Phone Number [facility] [address] [place] [phone] * (ABNORMAL) Lipase (09/19/2024 2:44 PM EDT) [facility] Lipase 117(H) 8 - 78 U/L [facility] Blood Venous blood specimen / Unknown 09/19/2024 2:44 PM EDT 09/19/2024 4:10 PM EDT us Katrin López MD LAB BLOOD ORDERAB LES Final Result Performing Organization Address [facility]/ZIP Co de Phone Number [facility] [address] [place] [phone] * Ferritin (09/19/2024 2:44 PM EDT) Ferritin 32 20 - 250 ng/mL [facility] 09/19/2024 2:44 PM EDT 09/19/2024 4:10 PM EDT us Generic External Data Provider LAB BLOOD ORDERAB LES Final Result Performing Organization Address [facility] Co de Phone Number [facility] [address] [place] [phone] * (ABNORMAL) Basic Metabolic Panel (09/19/2024 2:44 PM EDT) Sodium 139 135 - 145 mmol/L [facility] Potassium 3.7 3.3 - 5.1 mmol/L [facility] Chloride 108 96 - 108 mmol/L [facility] Carbon Dioxide 24 22 - 29 mmol/L [facility] Anion Gap 11(L) 12 - 20 [facility] Urea Nitrogen (BUN) 37(H) 9 - 16 mg/dL [facility] Creatinine, Serum 4.53(HH) 0.5 - 1.4 mg/dL [facility] Comment:Critical value for t est(s): SHIRA Results called to agatha back by: DR. FLORENCIO CARDONA Person calling: NGUYENQDate:09/19/24 Time:1653 Estimated Glomerular Filt Rate 14 [facility] Comment:Chronic Kidney Disea se: Estimated GFR < 60 mL/min/1.90y0Birfrt Kidney Disease: Estimated GFR < 15 mL/min/1.73m2 Glucose 280(H) 60 - 115 mg/dL [facility] Calcium 8.4 8.4 - 10.2 mg/dL [facility] Blood Venous blood specimen / Unknown 09/19/2024 2:44 PM EDT 09/19/2024 4:10 PM EDT us Billy Martínez MD LAB BLOOD ORDERABLES Final Resul t [facility] [address] [place] [phone] * (ABNORMAL) POCT glucose manually resulted [...] MTD, OXY, PCP, TCA, THC. .UTOX cup Lot#[id number] Exp. 12/25/25 Internal Pass Control Moriah Herbert DIGESTER COOK POINT OF CARE TEST ENTER/EDIT ORDERABLES Final Result * (ABNORMAL) POCT HGB A1C (08/22/2024 1:13 PM EDT) Hemoglobin A1C 10.2(A) 4.0 - 6.0 % QC Media Lot # [id number] Lot# Expiration Date ,027 Blood 08/22/2024 1:13 PM EDT Katrin López MD POINT OF CARE IRAM T ENTER/EDIT ORDERABLES Final Result * FL upper GI w air (07/30/2024 8:20 AM EDT) Anatomical Region Laterality Modality Body Radiographic Cierra ging 07/30/2024 8:20 AM EDT Narrative 07/30/2024 10:23 AM EDT ? [facility] ?[address] ?[place] [address] ? Fluoroscopy Report ? Signed ? Patient: Benton Cortes,Darrel ?MR#: [id number] ?? [id number] ? : 1970 ?Acct:[id number] ? Age/Sex: 54 / M ?ADM Date: 03/25/25 ? Loc: HO.XRAY ? Attending Dr: Chuy Mcmanus MD ? Ordering Physician: Chuy Mcmanus MD ?? Date of Service: 07/30/24 ?? Procedure(s): FL upper GI w air ?? Accession Number(s): [id number] ? cc: Katrin Santoyo MD; Chuy Mcmanus [...] DD/ 0820 ? TD/TT: 07/30/24 0850 ? Bombsight Specialist: ? Procedure Note Donnatiter, Image - 07/30/2024 [place] [address] Fluoroscopy Report Signed Patient: Darrel HaganMR#: [id number] : 1970Acct:[id number] Age/Sex: 54 / MADM Date: 07/30/24 Loc: HO.XRAY Attending Dr: Chuy Mcmanus MD Ordering Physician: Chuy Mcmanus MD Date of Service: 07/30/24 Procedure(s): FL upper GI w air Accession Number(s): [id number] cc: Katrin Santoyo MD; Chuy Mcmanus MD [...] 07/30/24 1020 DD/ 0820 TD/TT: 07/30/24 0850 Bombsight Specialist: [facility] Exter nal Provider IMG FLUOROSCOPY PROCEDURES Edited Result - Final * XR Chest 2 Views (07/30/2024 8:05 AM EDT) Anatomical Region Laterality Modality Chest Radiographic Cierra ging 07/30/2024 8:05 AM EDT Narrative 07/30/2024 10:25 AM EDT ? [facility] ?[address] ?[place] [address] ?XRay Report ? Signed ? Patient: Bhardwaj Sebastian,Darrel ?MR#: [id number] ?? [id number] ? : 1970 ?Acct:[id number] ? Age/Sex: 54 / M ?ADM Date: 07/30/24 ? Loc: HO.XRAY ? Attending Dr: Chuy Mcmanus MD ? Ordering Physician: Chuy Mcmanus MD ?? Date of Service: 07/30/24 ?? Procedure(s): XR chest 2V ?? Accession Number(s): [id number] ? cc: Katrin Santoyo MD; Chuy Mcmanus [...] DD/ 0805 ? TD/TT: 07/30/24 0819 ? Bombsight Specialist: ? Procedure Note Pato, Cliff - 07/30/[address] [address] XRay Report Signed Patient: Darrel HaganMR#: [id number] : 1970Acct:[id number] Age/Sex: 54 / MADM Date: 07/30/24 Loc: HOMIKEAY Attending Dr: Chuy Mcmanus MD Ordering Physician: Chuy Mcmanus MD Date of Service: 07/30/24 Procedure(s): XR chest 2V Accession Number(s): [id number] cc: Katrin Santoyo MD; Chuy Mcmanus MD [...] 07/30/24 1022 DD/ 0805 TD/TT: 07/30/24 0819 Bombsight Specialist: [facility] External Provider IMG XR PROCEDURES Edited Result - Final * Gross and Microscopic Level 3 (07/29/2024 11:45 AM EDT) 07/29/2024 11:4 5 AM EDT 07/30/2024 8:48 AM EDT [facility] - 07/31/2024 2:11 PM EDT ----- ------- Name: Darrel Hagan ? Age/Sex: 54/M ? : 1970 Unit#: [id number] ?? Attend Dr: Handy [place] MD ?Re07/29/24 ?Status: DEP REF ? Location: HO.LAB ?Disch: ? ----- ------- SPEC : [id number] ? RECD: 07/30/24 ? STATUS: ??SOUT ? REQ NUM: [id number] ? ESTUARDO: 07/29/24-1145 ? SUBM DR: Handy [...] To: ?? Katrin Santoyo MD ?? [address] [facility] ?? [place] [address] ?? [phone] ?? Handy [place] MD ?? [facility] General Surgeons ?? [address] ?? [place] [address] ?? [phone] ?? [email or web address] ? CONTINUED ON NEXT PAGE ----- ------- Name: Darrel Hagan ? Age/Sex: 54/M ? : 1970 Unit#: [id number] ?? Attend Dr: Handy [place] MD ?Re07/29/24 ?Status: DEP REF ? Location: [facility] ?Disch: ? ----- ------- SPEC : [id number] ? RECD: 07/30/24-847 ? STATUS: ??SOUT ? REQ NUM: [id number] ? ESTUARDO: 07/29/24-1145 ? SUBM DR: Handy [place] MD ? ENTERED: ??07/30/24 ?SP TYPE: Surgical ? OTHR : Katrin Santoyo MD ORDERED: ??Gross Micro L3 ? ----- ------- Signed (signature on file) Nereida [place] 07/31/24 1411 ? ----- ------- ? END OF REPORT ? us Generic External Data Provider LAB CYTOLOGY ORDE VICKIE Final Result [facility] [address] [place] [phone] * US Abdomen Comp w elastography (07/23/2024 8:45 AM EDT) Anatomical Region Laterality Modality Abdomen Ultrasound 07/23/2024 8:45 AM EDT Narrative 07/23/2024 9:23 AM EDT ? [facility] ?[address] ?[place] [address] ? Ultrasound Report ? Signed ? Patient: Darrel Hagan ?MR#: [id number] ?? [id number] ? : 1970 ?Acct:[id number] ? Age/Sex: 54 / M ?ADM Date: 07/23/24 ? Loc: HO.US ? Attending Dr: Chuy Mcmanus MD ? Ordering Physician: Chuy Mcmanus MD ?? Date of Service: 07/23/24 ?? Procedure(s): US abdomen comp w elastography ?? Accession Number(s): [id number] ? cc: Katrin Santoyo MD; Chuy Mcmanus [...] DD/ 0845 ? TD/TT: 07/23/24 0904 ? Bombsight Specialist: ? Procedure Note Pato, Cliff - 07/23/[address] [address] Ultrasound Report Signed Patient: Darrel HaganMR#: [id number] : 1970Acct:[id number] Age/Sex: 54 / MADM Date: 07/23/24 Loc: HO.US Attending Dr: Chuy Mcmanus MD Ordering Physician: Chuy Mcmanus MD Date of Service: 07/23/24 Procedure(s): US abdomen comp w elastography Accession Number(s): [id number] cc: Katrin Santoyo MD; Chuy Mcmanus MD [...] 07/23/24 0920 DD/ 0845 TD/TT: 07/23/24 0904 Bombsight Specialist: [facility] External Provider IMG US PROCEDURES Final Result * (ABNORMAL) Lipid Panel, Standard (09/19/2023 1:43 PM EDT) Triglycerides 316(H) <150 mg/dL [facility] Comment:Desirable Triglyceri de: less than 150 mg/dLBorderline High Triglyceride 150-199 mg/dLHigh Triglyceride: 200-499 mg/dLVery High Triglyceride: greater than or equal to 5OO mg/dL Cholesterol 164 <200 mg/dL [facility] Comment:Desirable Cholestero l: less than 200 mg/dLBorderline High Cholesterol: 200-239 mg/dLHigh Cholesterol: greater than 239 mg/dL LDL Cholesterol Calculated 60 <100 mg/dL [facility] Comment:Desirable LDL: less than 100 mg/dLNear Optimal/Above Optimal LDL: 110- 129 mg/dLBorderline High LDL: 130-159 mg/dLHigh LDL: 160-189 mg/dLVery High LDL: greater than or equal to 190 mg/dL HDL Cholesterol 41 >40 mg/dL [facility] Comment:Desirable HDL: great er than 40 mg/dL Note: This HDL assay may give artificially low results in patients with liver disease. Blood Venous blood specimen / Unknown 09/19/2023 1:43 PM EDT 09/19/2023 3:53 PM EDT Katrin López MD LAB BLOOD ORDERAB LES Final Result [facility] [address] [place] [phone] * HIV Ab/Ag (LOU JEFFRIES) (12/06/2022 10:21 AM EDT) HIV AB/AG Nonreactive Nonreactive [facility] Comment:HIV-1 p24 Ag and/or HIV-1/HIV-2 Ab not detected.A test result that is nonreactive does not exclude thepossibility of exposure to or infection with HIV-1 and/orHIV-2. Nonreactive results in this assay for individualswith prior exposure to HIV-1 and/or HIV-2 may be due toantigen and antibody levels that are below the limit ofdetection of this assay.The [employer] HIV Ag/Ab Combo assay result andsupplemental assay results should be interpreted inconjunction with the patient's clinical presentation,history and other laboratory results. If the results areinconsistent with clinical evidence, additional testing issuggested to confirm the result. 12/06/2022 10:2 1 AM EDT 12/06/2022 11:17 AM EDT Elise Castro [facility] LAB BLOOD ORDERABLES Final Result Performing Organization Address [facility] Co de Phone Number [facility] [address] [place] [phone] * Hepatitis Panel, General (12/06/2022 10:21 AM EDT) Hepatitis A IgM Nonreactive Nonreactive [facility] Comment:IgM antibodies to VILLAN[place]VA V not detected; does not exclude earlyacute or recovered HAV infection. ~Hepatitis B Surface Antibody REACTIVE Nonreactive [facility] Comment:REACTIVE: > 11.99 mI U/mL Hepatitis B Core Antibody Nonreactive Nonreactive [facility] Hepatitis C Antibody Nonreactive Nonreactive [facility] Comment:Antibodies to HCV no t detected; does not exclude early acuteHCV infection. Hepatitis B Surface Ag Negative Negative [facility] Blood 12/06/2022 10:2 1 AM EDT 12/06/2022 11:17 AM EDT Elise Gloria Abdoulaye [facility] LAB BLOOD ORDERABLES Final Result Performing Organization Address [facility] Co de Phone Number [facility] [address] [place] [phone] from Last 3 Months or Most Recently Relevant to Health Maintenance Insurance [place] [facility] MEDICAID STAND ADULT Care Teams Remotely Operated Vehicle Relationship Specialty Start Date End Date Katrin Santoyo MD [address] [place] [phone] PCP - General Internal Medicine 12/13/22 Edison Vieira MD [address] [place] [address] Pulmonary Disease 04/07/24 Joe Devi MD [address] [facility] 3rd [place] [address] Gastroenterology 04/07/24 Chuy Mcmanus MD [address] [place], [place] [address] [place] [address] Bariatrics 09/25/24 Carito Roche DNP [address] [facility], [address] [place] [address] Nephrology 04/07/24 [employer] 04/11/24
--- OUTSIDE RECORDS SUMMARY | 2024-09-25 12:50 | XMS_ITS | Encounter Summary ---
Author Organization [facility] Address [address] [place] [address] Care Team Providers Care Commercial Front Load Operator Name Role Phone Deep Pruitt APRN Primary Care Provider Reason for Visit * Reason Comments Medication Refill Encounter Details Date Type Department Care Team ([facility] st Contact Info) Description 12/29/[address] [facility] [address] [place] [phone] Deep Pruitt APRN [address] [place] [phone] Medication Refill Social History Tobacco Use [...] Date Recorded PHQ-2 Total Score 0 11/18/2020 [facility] of Occupat [...]
--- OUTSIDE RECORDS SUMMARY | 2024-09-25 12:50 | XMS_ITS | Encounter Summary ---
Author Organization [facility] Address [address] [place] [address] Care Team Providers Care Corrugated Fastener Driver Name Role Phone Deep Pruitt APRN Primary Care Provider Reason for Visit * Reason Comments Medication Refill Encounter Details Date Type Department Care Team ([facility] Contact Info) Description 02/01/2021 Refill [facility] [address] [place], [place] [phone] Deep Pruitt APRN [address] [place] [address] Medication Refill Social History Tobacco [...] Recorded PHQ-2 Total Score 6 01/21/2021 [facility] of Occupat ional [...] documented as of this encounter Care Teams Corrugated Fastener Driver Relationship Specialty Start Date End Date Deep Pruitt APRN PCP - General 05/22/19 documented as of this encounter
--- OUTSIDE RECORDS SUMMARY | 2024-09-25 12:50 | XMS_ITS | Encounter Summary ---
Author Organization [facility] Address [address] [place] [address] Care Team Providers Care Regional Driver Name Role Phone Deep Pruitt APRN Primary Care Provider Reason for Visit * Reason Comments Medication Refill Encounter Details Date Type Department Care Team ([facility] st Contact Info) Description 11/05/2020 Refill [facility] [address] [place] [address] Deep Pruitt APRN [address] [place] [phone] Medication Refill Social History Tobacco Use [...] documented as of this encounter Care Teams Regional Driver Relationship Specialty Start Date End Date Deep Pruitt APRN PCP - General 05/22/19 documented as of this encounter
--- OUTSIDE RECORDS SUMMARY | 2024-09-25 12:50 | XMS_ITS | Encounter Summary ---
Author Organization [facility] Address [address] [place] [address] Care Team Providers Care Fun House Attendant Name Role Phone Deep Pruitt APRN Primary Care Provider Reason for Visit * Reason Comments Other Advice Only Encounter Details Date Type Department Care Team ([facility] Contact Info) Description 09/28/2021 Telephone [facility] [address] [place] [address] Deep Pruitt APRN [address] [place] [address] Other; Advice Only Social History [...] be given because his underlying condition. Patient [phone] documented in this encounter Plan of Treatment Not on file documented as of this encounter Visit Diagnoses Not on filedocumented in this encounter Additional Health Concerns Infection Onset Date Last Indicated Resolved Time COVID-19 09/29/2021 09/29/2021 10/19/2021 7:19 PM EDT Assessment Noted Time PHQ-9 Depression Total Score: 7 09/15/19 22 10:31 AM EDT documented as of this encounter Care Teams Fun House Attendant Relationship Specialty Start Date End Date Deep Pruitt APRN PCP - General 05/22/19 documented as of this encounter
--- OUTSIDE RECORDS SUMMARY | 2024-09-25 12:50 | XMS_ITS | Encounter Summary ---
Author Organization [facility] Address [address] [place] [address] Care Team Providers Care Traffic Administrator Name Role Phone Deep Pruitt APRN Primary Care Provider Encounter Details Date Type Department Care Team ([facility] st Contact Info) Description 11/14/2020 Scanned Document [facility] [address] [place], [place] [phone] Deep Pruitt APRN [address] [place] [address] Social History Tobacco Use Types [...] Date Recorded PHQ-2 Total Score 0 11/18/2020 [facility] of Occupat ional Health [...] as of this encounter Care Teams Traffic Administrator Relationship Specialty Start Date End Date Deep Pruitt APRN PCP - General 05/22/19 documented as of this encounter
--- OUTSIDE RECORDS SUMMARY | 2024-09-25 12:50 | XMS_ITS | Encounter Summary ---
Author Organization [facility] Address [address] [place] [address] Care Team Providers Care Interlocking And Signal Mechanic Name Role Phone HopkinsDeep medina Niko LOPEZ Primary Care Provider Reason for Visit * Reason Onset Date Comments Medication Refill 09/22/2021 Encounter Details Date Type Department Care Team (Late st Contact Info) Description 09/22/2021 Refill [facility] Nutrition at [address] [address] Zena Hines PA [address] [place] [phone] Medication Refill Social History Tobacco Use [...] Date Recorded PHQ-2 Total Score 5 09/14/2021 [facility] of Occupat ional Health - [...] no longer seeing Zena Hines at [facility] for DM mangement. Nate, Katrin documented [...] documented as of this encounter Care Teams Interlocking And Signal Mechanic Relationship Specialty Start Date End Date Deep Pruitt APRN PCP - General 05/22/19 documented as of this encounter
--- OUTSIDE RECORDS SUMMARY | 2024-09-25 12:50 | XMS_ITS | Encounter Summary ---
Author Organization [facility] Address [address] [place] [address] Care Team Providers Care Risk Mgr Name Role Phone TroyDeep medina Niko LOPEZ Primary Care Provider Encounter Details Date Type Department Care Team (Late st Contact Info) Description 02/19/2020 Scanned Document [facility] [address] [place], [place] [phone] Arben Fountain, NOLVIA [address] [place] [address] Social History Tobacco Use Types Packs/Day [...] Answer Date Recorded PHQ-2 Score 2 10/02/2019 [facility] of Occupat ional Health - Occupational Stress [...] documented as of this encounter Care Teams Risk Mgr Relationship Specialty Start Date End Date Deep Pruitt APRN PCP - General 05/22/19 documented as of this encounter
--- OUTSIDE RECORDS SUMMARY | 2024-09-25 12:50 | XMS_ITS | Encounter Summary ---
Author Organization [facility] Address [address] [place] [address] Care Team Providers Care Event Marketing Representative Name Role Phone Deep Pruitt APRN Primary Care Provider [phone] Reason for Visit * Reason Comments Other Appointment Encounter Details Date Type Department Care Team ([facility] Contact Info) Description 10/07/2021 Telephone [facility] [address] [place] [address] Deep Pruitt APRN [address] [place] [address] Other; Appointment Social History Tobacco [...] Date Recorded PHQ-2 Total Score 0 10/07/2021 [facility] of Occupat ional Health [...] after dropped call ,patient has virtual appt [phone] documented in this encounter Plan of Treatment Not on file documented as of this encounter Visit Diagnoses Not on filedocumented in this encounter Additional Health Concerns Infection Onset Date Last Indicated Resolved Time COVID-19 09/29/2021 09/29/2021 10/19/2021 7:19 PM EDT Assessment Noted Time PHQ-9 Depression Total Score: 0 10/08/19 22 1:27 PM EDT documented as of this encounter Care Teams Event Marketing Representative Relationship Specialty Start Date End Date Deep Pruitt APRN PCP - General 05/22/19 documented as of this encounter
--- OUTSIDE RECORDS SUMMARY | 2024-09-25 12:50 | XMS_ITS | Encounter Summary ---
Author Organization [facility] Address [address] [place] [address] Care Team Providers Care Contract Implementation Analyst Name Role Phone eDep Pruitt APRN Primary Care Provider Reason for Visit * Reason Comments Medication Refill Encounter Details Date Type Department Care Team ([facility] st Contact Info) Description 11/11/2020 Refill [facility] [address] [place] [address] Deep Pruitt APRN [address] [place] [phone] Medication Refill Social History Tobacco Use [...] [facility] of Occupat ional [facility] - Occupational Stress Questionnaire Answer Date [...] as of this encounter Care Teams Contract Implementation Analyst Relationship Specialty Start Date End Date Deep Pruitt APRN PCP - General 05/22/19 documented as of this encounter
--- OUTSIDE RECORDS SUMMARY | 2024-09-25 12:50 | XMS_ITS | Encounter Summary ---
Author Organization [facility] Address [address] [place] [address] Care Team Providers Care Evp Name Role Phone HarrahRomeliaDeep Niko LOPEZ Primary Care Provider [phone] Reason for Visit * Reason Onset Date Comments Medication Refill 10/12/2021 Encounter Details Date Type Department Care Team (Late st Contact Info) Description 10/12/2021 Refill [facility] [address] [place] [address] Cecile Oneal, DMD [address] [place] [address] Medication Refill Social History [...] Recorded PHQ-2 Total Score 0 10/12/2021 [facility] of Occupat ional [...] documented as of this encounter Care Teams Evp Relationship Specialty Start Date End Date Deep Pruitt APRN PCP - General 05/22/19 documented as of this encounter
--- OUTSIDE RECORDS SUMMARY | 2024-09-25 12:50 | XMS_ITS | Encounter Summary ---
Author Organization [facility] Address [address] [place] [address] Care Team Providers Care Senior Military Analyst Name Role Phone Deep Pruitt JOHN Primary Care Provider Reason for Visit * Reason Onset Date Comments Medication Refill 10/12/2021 Encounter Details Date Type Department Care Team (Late st Contact Info) Description 10/12/2021 Refill [facility] Nutrition at [address] [phone] Angie Mcghee MD [address] [place] [phone] Medication Refill Social History Tobacco Use Types [...] Date Recorded PHQ-2 Total Score 0 10/12/2021 [facility] of Occupat ional Health [...] as of this encounter Care Teams Senior Military Analyst Relationship Specialty Start Date End Date Deep Pruitt APRN PCP - General 05/22/19 documented as of this encounter
--- OUTSIDE RECORDS SUMMARY | 2024-09-25 12:50 | XMS_ITS | Encounter Summary ---
Author Organization [facility] Communication Intelligence Maintenance Assistant System and [facility] Address [address] [place] [phone] Care Team Providers Care Lead Printer Name Role Phone Deep Pruitt APRN Primary Care Provider Reason for Visit * Reason Onset Date Comments Medication Refill 09/22/2021 Encounter Details Date Type Department Care Team (Late st Contact Info) Description 09/22/2021 Refill [facility] [address] [facility] [address] [facility] 2nd [place] [address] Kaity Harris, CUT FILE CLERK [address] [place] [phone] Medication Refill Social History Tobacco Use Types [...] Score 5 09/14/2021 [facility] - [facility] [...] as of this encounter Care Teams Lead Printer Relationship Specialty Start Date End Date Deep Pruitt APRN PCP - General 05/22/19 documented as of this encounter
--- OUTSIDE RECORDS SUMMARY | 2024-09-25 12:51 | XMS_ITS | Encounter Summary ---
Author Organization [facility] Address [address] [place] [address] Care Team Providers Care Unit Operator Name Role Phone Romelia Pruittian Niko LOPEZ Primary Care Provider Encounter Details Date Type Department Care Team (Late st Contact Info) Description 08/09/2021 Scanned Document [facility] [address] [place] [address] External, Provider Social History Tobacco Use Types [...] Date Recorded PHQ-2 Total Score 4 07/13/2021 [facility] of Occupat ional Health [...] documented as of this encounter Care Teams Unit Operator Relationship Specialty Start Date End Date Deep Pruitt APRN PCP - General 05/22/19 documented as of this encounter
--- OUTSIDE RECORDS SUMMARY | 2024-09-25 12:51 | XMS_ITS | Encounter Summary ---
Author Organization [facility] Address [address] [place] [address] Care Team Providers Care Frequency Checker Name Role Phone Deep Pruitt APRN Primary Care Provider Reason for Visit * Reason Comments Medication Refill Encounter Details Date Type Department Care Team ([facility] st Contact Info) Description 10/20/2020 Refill [facility] [address] [place], [place] [phone] Deep Pruitt APRN [address] [place] [address] Medication Refill Social History Tobacco [...] Answer Date Recorded PHQ-2 Score 2 07/07/2020 [facility] of Occupat ional Health [...] documented as of this encounter Care Teams Frequency Checker Relationship Specialty Start Date End Date Deep Pruitt APRN PCP - General 05/22/19 documented as of this encounter
--- OUTSIDE RECORDS SUMMARY | 2024-09-25 12:51 | XMS_ITS | Encounter Summary ---
Author Organization [facility] Address [address] [place] [address] Care Team Providers Care Financial Consultant Name Role Phone Romelia Pruittian Niko LOPEZ Primary Care Provider [phone] Reason for Visit * Reason Comments Medication Refill Encounter Details Date Type Department Care Team ([facility] st Contact Info) Description 09/16/2021 Refill [facility] [address] [place] [phone] Carlos Eduardo Joyner MD [address] [place] [phone] Medication Refill Social History Tobacco Use [...] as of this encounter Care Teams Financial Consultant Relationship Specialty Start Date End Date Deep Pruitt APRN PCP - General 05/22/19 documented as of this encounter
--- OUTSIDE RECORDS SUMMARY | 2024-09-25 12:51 | XMS_ITS | Encounter Summary ---
Author Organization [facility] Address [address] [place] [address] Care Team Providers Care Recovery Analyst Name Role Phone Deep Pruitt APRN Primary Care Provider Encounter Details Date Type Department Care Team ([facility] st Contact Info) Description 10/26/2020 Scanned Document [facility] [address] [place], [place] [phone] Deep Pruitt APRN [address] [place] [address] Social History Tobacco Use Types [...] Answer Date Recorded PHQ-2 Score 2 07/07/2020 [facility] of Occupat ional Health [...] documented as of this encounter Care Teams Recovery Analyst Relationship Specialty Start Date End Date Deep Pruitt APRN PCP - General 05/22/19 documented as of this encounter
--- OUTSIDE RECORDS SUMMARY | 2024-09-25 12:51 | XMS_ITS | Encounter Summary ---
Author Organization [facility] Address [address] [place] [address] Care Team Providers Care Drafter Refrigeration Name Role Phone Romelia Pruittian Niko LOPEZ Primary Care Provider Encounter Details Date Type Department Care Team (Late st Contact Info) Description 09/08/2021 Scanned Document [facility] [address] [place] [address] External, Provider Social History Tobacco Use Types [...] Recorded PHQ-2 Total Score 2 09/08/2021 [facility] of Occupat [...] as of this encounter Care Teams Drafter Refrigeration Relationship Specialty Start Date End Date Deep Pruitt APRN PCP - General 05/22/19 documented as of this encounter
--- OUTSIDE RECORDS SUMMARY | 2024-09-25 12:51 | XMS_ITS | Encounter Summary ---
Author Organization [facility] and [facility] Address [address] [place] [id number] Care Team Providers Care Buckle Gluer Name Role Phone Deep Pruitt APRN Primary Care Provider Encounter Details Date Type Department Care Team (Latest Contact Info) Description 09/09/2021 Transcribed Orders [facility] [address] [place] [address] Deep Pruitt APRN [address] [place] [address] Encounter for routine screening for [...] Total Score 2 09/08/2021 [facility] [...] Orde r Schedule TSH w/reflex to FT4 ([facility]) Lab Routine Encounter for [...] health care facility TSH W/REFLEX TO FT4 ([facility]) Routine 09/09/2021 12:05 PM [...] prostate Routine general medical examination at a [facility] care facility ALBUMIN/CREATININE PANEL, URINE, RANDOM Routine 09/09/2021 11:01 AM EDT Encounter for routine screening for malformation using ultrasonics Special screening for malignant neoplasm of prostate Routine general medical examination at a [facility] care facility CBC WITH AUTO DIFFERENTIAL Routine 09/09/2021 10:58 AM EDT Encounter for routine screening for malformation using ultrasonics Special screening for malignant neoplasm of prostate Routine general medical examination at a [facility] care facility CBC AND DIFFERENTIAL Routine 09/09/2021 10:58 AM EDT Encounter for routine screening for malformation using ultrasonics Special screening for malignant neoplasm of prostate Routine general medical examination at a [facility] care facility HEMOGLOBIN A1C Routine 09/09/2021 10:58 AM EDT Encounter for routine screening for malformation using ultrasonics Special screening for malignant neoplasm of prostate Routine general medical examination at a health care facility documented in this encounter Results * PSA, total and free (09/09/2021 12:05 PM EDT) Prostate Specific Antigen, Total (YH) 0.578 0.000 - 3.900 ng/mL 09/13/2021 1:44 PM EDT [facility] DEPARTMENT OF LABORATORY MEDICINE Prostate Specific Antigen, Free (YH) 0.28 0.00 - 3.90 ng/mL 09/13/2021 1:44 PM EDT [facility] DEPARTMENT OF LABORATORY MEDICINE Comment:Prostate Specific An tigen, Free Percentage can not be calculated. PSA, Total value out of appropriate range. Blood Venipuncture / Unknown 09/09/2021 12:05 PM EDT 09/13/2021 10:48 AM EDT Narrative [facility] DEPARTMENT OF LABORATORY MEDICINE - [...] BLOOD ORDERABLES Final Result Performing Organization Address City/State/[facility] Co de Phone Number [facility] DEPARTMENT OF LABORATORY MEDICINE [address] [place] [address] * (ABNORMAL) Comprehensive metabolic panel (09/09/2021 12:05 PM EDT) Sodium 140 136 - 144 mmol/L 09/09/2021 2:42 PM EDT [facility] Potassium 4.9 3.3 - 5.3 mmol/L 09/09/2021 2:42 PM EDT [facility] Chloride 101 98 - 107 mmol/L 09/09/2021 2:42 PM EDT [facility] CO2 27 20 - 30 mmol/L 09/09/2021 2:42 PM EDT [facility] Anion Gap 12 7 - 17 09/09/2021 2:42 PM EDT [facility] Glucose 148(H) 70 - 100 mg/dL 09/09/2021 2:42 PM EDT [facility] BUN 31(H) 6 - 20 mg/dL 09/09/2021 2:42 PM EDT [facility] Creatinine 1.40(H) 0.40 - 1.30 mg/dL 09/09/2021 2:42 PM EDT [facility] Calcium 9.5 8.8 - 10.2 mg/dL 09/09/2021 2:42 PM T [facility] BUN/Creatinine Ratio 22.1 8.0 - 23.0 0509/2021 2:42 PM EDT [facility] Total Protein 6.4(L) 6.6 - 8.7 g/dL 09/09/2021 2:42 PM EDT [facility] Albumin 3.6 3.6 - 4.9 g/dL 09/09/2021 2:42 PM T [facility] Total Bilirubin 0.2 <=1.2 mg/dL 09/09/2021 2:42 PM T [facility] Alkaline Phosphatase 135(H) 9 - 122 U/L 09/09/2021 2:42 PM T [facility] Alanine Aminotransferase (ALT) 40 9 - 59 U/L 09/09/2021 2:42 PM T [facility] Comment:Calcium dobesilate c an cause artificially low ALT results at therapeutic concentrations Aspartate Aminotransferase (AST) 33 10 - 35 U/L 09/09/2021 2:42 PM T [facility] Globulin 2.8 2.3 - 3.5 g/dL 09/09/2021 2:42 PM T [facility] A/G Ratio 1.3 1.0 - 2.2 09/09/2021 2:42 PM T [facility] AST/ALT Ratio 0.8 See Comment 09/09/2021 2:42 PM T [facility] Comment: Adult with mild elevations of [...] >60 mL/min/1.7 3m2 09/09/2021 2:42 PM EDT [facility] Comment: Values under 60mL/min/1.73m2 may indicate CKD if noted for ?? more than 3 months. eGFR is only valid if creatinine is at steady state. eGFR (NON -Libyan) 53 >60 mL/min/1.7 3m2 09/09/2021 2:42 PM EDT [facility] Comment: Values under 60mL/min/1.73m2 may indicate CKD if noted for ?? more than 3 months. eGFR is only valid if creatinine is at steady state. Blood Venipuncture / Unknown 09/09/2021 12:05 PM EDT 09/09/2021 12:05 PM EDT Deep Pruitt BODY STYLIST LAB BLOOD ORDERABLES Final Result Performing Organization Address City/[facility]/ZIP Co de Phone Number [facility] [address] [place] [address] * TSH w/reflex to FT4 ( GH LMW Q YH) (09/09/2021 12:05 PM EDT) Thyroid Stimulating Hormone 3.640 See Comment ??IU/mL 09/09/2021 2:42 PM EDT [facility] Comment: Male & Non- Females: 0.270-4.200 ??IU/mL 1st Trimester: 0.110-3.480 ??IU/mL 2nd Trimester: 0.320-3.850 ??IU/mL Blood Venipuncture / Unknown 09/09/2021 12:05 PM EDT 09/09/2021 12:05 PM EDT Deep Pruitt BODY STYLIST LAB BLOOD ORDERABLES Final Result Performing Organization Address City/[facility]/ZIP Co de Phone Number [facility] [address] [place] [address] * LDL cholesterol, direct (09/09/2021 12:05 PM EDT) LDL Direct 63 See Comment mg/dL 09/09/2021 2:41 PM EDT [facility] Comment: LDL Cholesterol (mg/dL) ?Adults (>=18 years) ?Children (<18 years) Desirable ?<100 ? <110 Above Desirable ?100-129 ?Not Established Borderline-High ?130-159 ?110- 129 High ? 160-189 ?>=130 Very High? >=190 ?Not Established Blood Venipuncture / Unknown 09/09/2021 12:05 PM EDT 09/09/2021 12:05 PM EDT us Deep Pruitt APRN LAB BLOOD ORDERABLES Final Result Performing Organization Address [facility]/ZIP Co de Phone Number [facility] [address] [place] [phone] [place] [address] * (ABNORMAL) Albumin/creatinine panel, urine, random (09/09/2021 11:01 AM EDT) Albumin, Urine, Random 1,616.3 Reference Range Not Established mg/L 09/09/2021 2:52 PM EDT [facility] Creatinine, Urine, Random 35 Reference Range Not Established mg/dL 09/09/2021 2:52 PM EDT [facility] Albumin/Creatin ine Ratio, Urine, Random 4,684.9(H ) <30.0 mg/g Cr 09/09/2021 2:52 PM EDT [facility] Comment: High albuminuria (formerly microalbuminuria): ??30-300 mg/g Cr Very high albuminuria (overt albuminuria): ? >300 mg/g Cr Urine Collection / Unknown 09/09/2021 11:01 AM EDT 09/09/2021 11:01 AM EDT Deep Pruitt APRN URINE ORDERABLES Final Resu lt Performing Organization Address [facility] Co de Phone Number [address] [address] [phone] * (ABNORMAL) CBC auto differential (09/09/2021 10:58 AM EDT) WBC 13.5(H) 4.0 - 11.0 x1000/??L 09/09/2021 2:16 PM EDT [facility] RBC 5.05 4.00 - 6.00 M/??L 09/09/2021 2:16 PM EDT [facility] Hemoglobin 13.9 13.2 - 17.1 g/dL 09/09/2021 2:16 PM EDT [facility] Hematocrit 46.10 38.50 - 50.00 % 09/09/2021 2:16 PM EDT [facility] MCV 91.3 80.0 - 100.0 fL 09/09/2021 2:16 PM EDT [facility] MCH 27.5 27.0 - 33.0 pg 09/09/2021 2:16 PM EDT [facility] MCHC 30.2(L) 31.0 - 36.0 g/dL 09/09/2021 2:16 PM EDT [facility] RDW-CV 15.1(H) 11.0 - 15.0 % 09/09/2021 2:16 PM EDT [facility] Platelets 298 150 - 420 x1000/??L 09/09/2021 2:16 PM EDT [facility] MPV 13.0(H) 8.0 - 12.0 fL 09/09/2021 2:16 PM EDT [facility] Neutrophils 63.6 39.0 - 72.0 % 09/09/2021 2:16 PM EDT [facility] Lymphocytes 22.5 17.0 - 50.0 % 09/09/2021 2:16 PM EDT [facility] Monocytes 9.2 4.0 - 12.0 % 09/09/2021 2:16 PM EDT [facility] Eosinophils 3.6 0.0 - 5.0 % 09/09/2021 2:16 PM EDT [facility] Basophil 0.4 0.0 - 1.4 % 09/09/2021 2:16 PM EDT [facility] Immature Granulocytes 0.7 0.0 - 1.0 % 09/09/2021 2:16 PM EDT [facility] nRBC 0.0 0.0 - 1.0 % 09/09/2021 2:16 PM EDT [facility] ANC(Abs Neutrophil Count) 8.60(H) 2.00 - 7.60 x 1000/??L 09/09/2021 2:16 PM EDT [facility] Absolute Lymphocyte Count 3.05 0.60 - 3.70 x 1000/??L 09/09/2021 2:16 PM EDT [facility] Monocyte Absolute Count 1.24(H) 0.00 - 1.00 x 1000/??L 09/09/2021 2:16 PM EDT [facility] Eosinophil Absolute Count 0.49 0.00 - 1.00 x 1000/??L 09/09/2021 2:16 PM EDT [facility] Basophil Absolute Count 0.06 0.00 - 1.00 x 1000/??L 09/09/2021 2:16 PM EDT [facility] Absolute Immature Granulocyte Count 0.10 0.00 - 0.30 x 1000/??L 09/09/2021 2:16 PM EDT [facility] Absolute nRBC 0.00 0.00 - 1.00 x 1000/??L 09/09/2021 2:16 PM EDT [facility] Blood Venipuncture / Unknown 09/09/2021 10:58 AM EDT 09/09/2021 10:58 AM EDT Deep Pruitt APRN LAB BLOOD ORDERABLES Final Result [facility] [address] [place] [address] * (ABNORMAL) Hemoglobin A1c (09/09/2021 10:58 AM EDT) Hemoglobin A1c 11.5(H) 4.0 - 5.6 % 09/10/2021 6:36 PM EDT [facility] DEPARTMENT OF LABORATORY MEDICINE Comment: [...] mg/dL 283 mg/dL 09/10/2021 6:36 PM EDT [facility] DEPARTMENT OF LABORATORY MEDICINE Comment: Estimated average glucose (eAG) is a calculated value designed to estimate ??the expected average blood glucose level throughout the day from a single ??measurement of ??glycated hemoglobin A1C (HbA1c) and follows the calculation proposed by the [place] [employer] (Diabetes Care 31: 1-6, 2008). It may have less accuracy in children, women and patients with certain erythrocyte disorders. Blood Venipuncture / Unknown 09/09/2021 10:58 AM EDT 09/09/2021 10:58 AM EDT Deep Pruitt APRN LAB BLOOD ORDERABLES Final Result Performing Organization Address City/State/[facility] Co de Phone Number [facility] DEPARTMENT OF LABORATORY MEDICINE [address] [place] [address] documented in this encounter Visit Diagnoses Diagnosis [...] documented as of this encounter Care Teams Buckle Gluer Relationship Specialty Start Date End Date Deep Pruitt APRN PCP - General 05/22/19 documented as of this encounter
--- OUTSIDE RECORDS SUMMARY | 2024-09-25 12:51 | XMS_ITS | Clinical Summary ---
Author Organization [address] Address [address] [place] [id number] Care Team Providers Care Process Eng Name Role Phone Deep Pruitt APRN Primary [...] edema will order Compression sleeves today from [facility] today, Put on lower legs during [...] of insulin, Duration 99, Feeding difficulty R63.30 67198 mL 06/23/19 Active metFORMIN (GLUCOPHAGE) 1000 mg [...] AM with Arben Fountain DPM at the [facility] -Will f/u with Pt in a [...] appointment and was informed he can call [phone] to find a closer time Assessment & Plan (02/19/2022 1:59 PM EDT): -The Pt went to his Center Mgr and was c/o right kidney pain for [...] worse at night - pathway utilized through [employer], patient eligible for molnupiravir, may benefit from [...] then send Pt to Hematology 04/14/2020 Juan hCino MD to Deep Pruitt APRN; eConsult Response [...] Ref. Range 04/07/2020 SPEP Interpretation Unknown ?? Lspab-1-Woomaabm Latest Ref Range: 0.2 - 0.3 g/dL 0.3 Pvavw-2-Zhcbsrtl Latest Ref Range: 0.5 - 0.9 g/dL 1.1 (H) Interpretation Unknown Comment Only Abnormal Protein Band 2 Latest Ref Range: NONE DETECTED g/dL CANCELED Abnormal Protein Band 3 Latest Ref Range: NONE DETECTED g/dL CANCELED Cles-7-Wkoheawb Latest Ref Range: 0.4 - 0.6 g/dL 0.5 Zpbj-0-Bohqqacq Latest Ref Range: 0.2 - 0.5 g/dL [...] 04/08/2020 17:50 ?? Ref. Range 04/07/2020 Free Laughlin Latest Ref Range: 3.3 - 19.4 mg/L 35.9 (H) Free Lambda Latest Ref Range: 5.7 - 26.3 mg/L 26.6 (H) Free Laughlin/Lambda Ratio Latest Ref Range: 0.26 - 1.65 [...] 15:12 Ref. Range 04/07/2020 SPEP Interpretation Unknown Xanxn-5-Orrnzzdu Latest Ref Range: 0.2 - 0.3 g/dL 0.3 Dvzst-3-Qhjjivbs Latest Ref Range: 0.5 - 0.9 g/dL 1.1 (H) Interpretation Unknown Comment Only Abnormal Protein Band 2 Latest Ref Range: NONE DETECTED g/dL CANCELED Abnormal Protein Band 3 Latest Ref Range: NONE DETECTED g/dL CANCELED Twtj-7-Rnsmcxnc Latest Ref Range: 0.4 - 0.6 g/dL 0.5 Sdpy-3-Ivvzyopw Latest Ref Range: 0.2 - 0.5 g/dL [...] 04/08/2020 17:50 ?? Ref. Range 04/07/2020 Free Laughlin Latest Ref Range: 3.3 - 19.4 mg/L 35.9 (H) Free Lambda Latest Ref Range: 5.7 - 26.3 mg/L 26.6 (H) Free Laughlin/Lambda Ratio Latest Ref Range: 0.26 - 1.65 [...] of 04/08/2020 17:50 Ref. Range 04/07/2020 Free Laughlin Latest Ref Range: 3.3 - 19.4 mg/L 35.9 (H) Free Lambda Latest Ref Range: 5.7 - 26.3 mg/L 26.6 (H) Free Laughlin/Lambda Ratio Latest Ref Range: 0.26 - 1.65 [...] like to speak with his pcp first [phone] Phone Conversation with Pt over the phone: PCP called bangladeshi speaking (uncontrolled diabetic) Pt over the phone, [...] Tried to call the Pt using the Lao Interpretor [id number], V/M was not set up [...] have CC'd Ricarda Du MD, his primary machine compositor. She has a phone consult with him [...] all the Pt medication bottle be in bangladeshi, Pt had a medication (allopurinoL (ZYLOPRIM) 100 mg tablet) error because he can not read in Surinamese, the Pt was prescribed 1/2 tab but [...] to see me at the front desk coordinator ?? Latest Reference Range & Units 09/09/21 12/15/21 BUN 7 - 25 mg/dL 31 (H) 29 (H) Creatinine 0.70 - 1.30 mg/dL 1.40 (H) 1.55 (H) BUN/Creatinine Ratio 6 - 22 (calc) 22.1 19 eGFR (NON -Mozambican) >60 mL/min/1.73m2 53 eGFR (Afr Amer) >60 [...] Range: 8.0 - 23.0 22.1 eGFR (NON -Mozambican) Latest Ref Range: >60 mL/min/1.73m2 53 eGFR [...] Malagon APRN at the Nephrology at [address] [facility], The Renal department is working on getting the Pt a 24 hour HTN monitor to assess the effectiveness of his recent medication changes, used bangladeshi interpretor 9264 ?? 07/13/2021 Renal Referral Note:?? Assessment and [...] effectiveness of his recent medication changes, used bangladeshi interpretor 9217 07/13/2021 Renal Referral Note: Assessment [...] given a referral to talk with the [facility] Scalp Treatment Specialist for further assessment of his current diet [...] and magnesium supplements that he said a advanced practice nurse psychotherapist told him were good for his kidneys. [...] preparation for his first visit with a machine compositor, Ricarda Du MD on 04/07/2020. Assessment & Plan (02/12/2020 2:18 PM EDT): Pt was recently in the hospital for Kidney issues, the Pt missed a previous Kidney appointment and will ask Pt to reschedule another Kidney appointment Date & Time 02/25/2020 10:00 AM Provider Taylor Malagon APRN Department [facility] at [address] [facility] Nephrology [address] [facility] 2nd Floor [facility] [address] Comment: Pt needs a Kidney referral due [...] 23 (H) 23 (H) 14.7 eGFR (NON -Mozambican) Latest Ref Range: >60 mL/min/1.73m2 76 77 [...] MRI of Brain from 2017 under [facility] Multimedia -Significant deficits on neurologic exam Memory loss and Left handed weakness -Imaging and prior evaluation -Current blood thinning agents is aspirin -Potential details to include, when relevant: poor GAIT, uses a walker to get around -How the diagnosis was made: Pt lived in [facility] at the time, Under Multimedia in [facility] see specific file at specific date [id number] Image MRI Result [facility] - MRI BRAIN CVA -09/25/2016 [id number] Image Evaluation [facility]- Left handed weakness note - 02/20/2017 [...] a letter to be given to the [employer] advising stating that the Pt is disabled and needs help with housing Is there a form to be fill out from the [employer] [facility] advising that the Pt is disabled and needs help with housing t 03/26/21 Oksana Fox to Deep Pruitt NURSERY TEACHER Summary: Letters needed by patient This staff writer met with patient at the clinic today 03.26.21 per nurses request, to assistance with letters that the patient is requesting. This staff writer spoke to patient and patient is [...] Patient is also requesting a letter for [employer] advising that he is disabled. Patient stated that he has already applied for and wants this letter to help him get Housing CCM: 15 minutes 04/11/2021 Deep Pruitt APRN Assessment & Plan (05/31/2020 5:20 PM EST): Pt had a CVA from 2017 and needs Neuro clearance before getting a Colonoscopy Presumed etiology of prior stroke (see MRI of Brain from 2017 under [employer] Mult[facility] Significant deficits on neurologic exam Memory loss and Left handed weakness Imaging and prior evaluation Current blood thinning agents is aspirin Potential details to include, when relevant: poor GAIT, uses a walker to get around How the diagnosis was made: Pt lived in [facility] at the time, Under Multimedia in [facility] see specific file at specific date [id number] Image MRI Result [facility] - MRI BRAIN CVA -09/25/2016 [id number] Image Evaluation [facility]- Left handed weakness note - 02/20/2017 [...] is working with his Diabetic Specialist at [facility] and has an appointment next week, will increase his Gababentin to 800 mg PO TID which has helped with his neuropathic pain, Spent 25 mins with Pt using the Sharepoint Developer Microalbuminuric diabetic nephropathy (HC Code) 09/26/2019 Assessment [...] Ricarda Du MD at the Nephrology at [address] [place] [address] Results for DARREL BHARDWAJ ( ) as [...] ) as of 09/19/2019 07:04 eGFR (NON -Mozambican) Latest Ref Range: > OR = 60 [...] for Bariatric surgery and Pt needs a preschool director Assessment & Plan (09/10/2021 5:42 PM EDT): Pt has a BMI of 40.4 and is working with the wellness clinic to work on his weight loss plan, putting a referral in for Bariatric surgery and Pt needs a preschool director Assessment & Plan (09/26/2019 9:45 AM EDT): Pt has a BMI of 40.4 and is working with the wellness clinic to work on his weight loss plan, putting a referral in for Bariatric surgery and Pt needs a preschool director Assessment & Plan (09/09/2019 2:47 PM EDT): [...] whole encounter. The interview was conducted in Lao which is my tribe language. I have encouraged Mr. Bhardwaj to contact us with any questions, concerns or clinical changes. Plan: 1. Continue current therapy. 2. No need for supplemental oxygen. Assessment & Plan (12/23/2021 12:10 PM EDT): -The Pt continues to feel like he is constantly SOB and is asking to be put on Oxygen NURSERY TEACHER -The Pt was given a list of labs to complete and once done then the Pt will be scheduled appointment with his Net Sql Developer -The Pt and the Net Sql Developer will decide together if the pt needs to be on O2 NURSERY TEACHER or not 08/18/2021 Pulmonary Note: Assessment: Mr. [...] ways in which he can request an interpreter translator over the phone and I am happy [...] complaints are out of proportion to seemingly somu-cg-rdiblhlp asthma and his dyspnea is likely multifactorial. [...] ways in which he can request an interpreter translator over the phone and I am happy [...] complaints are out of proportion to seemingly fvhz-wp-qgtmaxue asthma and his dyspnea is likely multifactorial. [...] in collaboration with Dr. Deep Yo. ?? [facility] Quality Initiatives: ?? Tobacco counseling: Patient [...] allergies spent 20 mins with Pt using Lao Interpretor 1674 Assessment & Plan (11/14/2020 11:15 [...] 7 years for colon cancer screening purposes.??Used Lao interpretor 8245 Assessment & Plan (06/16/2021 10:23 [...] years for colon cancer screening purposes. Used Lao interpretor 8245 Assessment & Plan (09/13/2020 7:30 [...] years for colon cancer screening purposes. Used Lao interpretor 9560 Assessment & Plan (06/24/2020 4:13 PM EST): Pt was informed of the following message and told to call and was asked to call to make a colonoscopy appointment 06/03/20 12:29 PM Message from [facility] at [address] [place] [address] Called patient to cancel pre colon appointment, patient did not answer and there was no voicemail set up. Attempted to call patient x2 in a row and no answer either time. Patient does not need pre colon appointment, only needs to schedule Colonoscopy. No Inspiratot message sent because at the time of the call when scheduling the pre colon appointment patient stated he does not know how to use the Osen application. Pre colon appointment cancelled. Assessment & [...] year ago the Pt had colonoscopy at [facility] in [facility] and was told to return [...] REPORT ? Patient: DARREL BHARDWAJ ?MR #: [id number] ([id number]) ?Submitted by: Hedy Hameed MD STOMACH, BIOPSY [...] disordered breathing. RECOMMENDATIONS / PLAN : -Current [place] [employer] recommendations for treatment of [...] Pt Called patient with Jose Rolon. Nancy #[id number]. Patient said that he has an old ResMed that he received in [place]. He doesn't know his mode or settings. Nor does he know his previous DME Assessment & Plan (09/10/2021 5:40 PM EDT): The Pt has an Sleep Apnea appointment on 09/24/2021 at??4:20 PM with Ryanne Ocasio MD at the Diabetes Center at [address] [place] [address] Assessment & Plan (09/24/2019 3:03 PM EDT): [...] spent 45 mins with Pt with a senior accountant SLEEP STUDY - [facility] - [phone] Assessment & Plan (09/09/2019 3:22 PM EDT): Pt typically sleep 2.5 hours a night, Pt still has to return his sleep apnea machine to [place] before a sleep apnea clinic in [place] will talk to him, Pt has a BMI of 40.4 and PCP will put a referral in for sleep apnea for Pt today, spent 35 mins with Pt with a senior accountant Diabetic foot (HC Code) 02/07/2019 Assessment & Plan (06/24/2022 9:27 AM EST): The Pt continues to deal with bilateral foot pain and wears a pair of Diabetic shoes with specification ordered by his Crnp Doctor Assessment & Plan (05/31/2021 2:00 PM EST): The Pt continues to deal with bilateral foot pain and needs to get a pair of Diabetic shoes with specification ordered by his Crnp Doctor and will increase Gabapentin from 400 mg PO BID to 800 PO BID Assessment & Plan (01/04/2021 10:02 AM EDT): - recently seen in mid-December by Podiatry- note reviewed Assessment & Plan (10/14/2020 9:29 AM EDT): The Pt continues to deal with bilateral foot pain and needs to get a pair of Diabetic shoes with specification ordered by his Crnp Doctor see below: 08/26/2020 Podiatry Note: Bilateral [...] Also using his neuropathic compounding formula from [employer] as an adjunctive therapy and likes it [...] is working with his Diabetic Specialist at [facility] and has an appointment next week, will increase his Gababentin to 800 mg PO TID and assess effectiveness in one month Assessment & Plan (02/07/2019 6:48 AM EDT): Pt needs a Podiatry appointment due to toe nails need to be cut and Pt needs establish care with a Crnp for his annual diabetic foot care Diabetic eye exam (HC Code) 02/07/2019 Assessment & Plan (06/24/2022 9:29 AM EST): The Pt stated today that he saw his Eye Doctor, unable to see event in [facility] Assessment & Plan (09/18/2020 6:10 PM EDT): Pt has complaints of vision changes and he blew a blood vessel on his sclera, 3 years ago the Pt would see his Retina Doctor who did a lazer every 6 month, Pt needs a retinal eye referral 09/18/2020 Jeovanny Lynn: I put a referral in for the Pt and lately the [facility] has not been given dates for [...] is in need of seeing eye doctor [facility]. Patient can be reached at [phone]. Ms. Rosales can be reached at the same number [phone]. Thank you Deep Assessment & Plan (05/28/2020 2:38 PM EST): Used Interpretor 1669, Pt is asking for an Diabetic Eye [...] 2019, the Pt needs to call the [facility] [address] [place] [address] Assessment & Plan (10/14/2020 2:13 PM EDT): [...] (01/04/2019 4:02 PM EDT): Pt needs a Lao speaking Nurse to help him manage his [...] called biweekly by the [facility] Nurse to review his FBS [...] medications -He has been following with the [facility] team and reports taking all of [...] decided to move his family back to [place] area due to being closer to family [...] issues. He also was supposed to pickling tank operator a Dexa scanner/sensor, but he was unable [...] (DEXCOM G6 SENSOR) device and scanner Asked Hide Shaker to schedule a 1/2 hour Nurse visit [...] 200-300 average, checks ACHS -Pt has his [facility] appt on 04/21/2022 at 11:30 AM [...] Pt will continues to go to his [facility] appointments to review his Dexcom G6 numbers and make appropriate medication changes -If all that happens then the Pt can also scan before each meal, switch from taking 30 units of prandial insulin to start a Sliding Scale -Will leave note with Pt's Drop Forger Helper that the Pt needs to have Provider use a Sharepoint Developer due to his poor Surinamese skills -The Pt has received the Dexcom G6 seed service advisor and scanner but still does not know [...] Pt will continues to go to his [facility] appointments to review his Dexcom G6 [...] Pt and with our [facility] RN who was able to translate [...] 190u??bid 2.Novolog 30??before meals + supplementary sliding latst344-996-->4u, 200-249-->6u,??250-299-->8u, 300-349-->10u, >350-->12u 3.continue with ??trulicity 4.5 mg weekly, jardiance 25 mg daily and metformin 1000 mg bid 4.contact us in 1 week to report BG 5.Check BS 4X/day. Keep organized log and bring it next time.??Call [facility] for use of Dexcom CGM 6.Hypoglycemia [...] yes ?? Recommendations: #Diabetes: 1. Continue with [id number] 190u bid 2.Novolog 30 before meals + supplementary sliding scale ?150-199-->??4??units ?200-249-->??6??units ?250-299-->??8??units ?300-349-->??10units ?>350-->?12 3.continue with trulicity 4.5 mg weekly, jardiance 25 mg daily and metformin 1000 mg bid 4.contact us in 1 week to report BG 5.Check BS 4X/day. Keep organized log and bring it next time. Call [facility] for use of Dexcom CGM 6.Hypoglycemia management: [...] issues -Will talk with [facility] Nurse about the Pt and support systems may not be compliant with taking meds and Insulin on a regular basis -Will work on bring the Pt's A1C down, it has been in the 11's for the past year and Pt not wanting to see [facility] or [facility] Diabetic Specialist -Will have to set [...] the Bariatric Doctor for weight loss -Used Sharepoint Developer # [id number] -Pt wished he could get his diabetic care restarted at the [facility] -Pt does not want to go to [facility] Diabetic Clinic or the [facility] diabetic clinic due to not feeling comfortable [...] Pt needs to be rescheduled with our [facility] Diabetic Clinic with Zena Hines PA, the Pt did not like dealing with [facility] due to not feeling comfortable with the [facility] Providers and has had missed multiple appointments The Pt continues to deal with an elevated A1C, Pt wished he could get his diabetic care restarted at the [facility], will refer today ?? [...] MD sent at 09/30/2021 Regarding: RE: reschedule palliative senior np appointment I think this is his 3rd [...] Ocasio MD at the Diabetes Center at [address] [place] [address], Pt wished he could get his diabetic care restarted at the [facility], Pt advised to go [...] LDL 90 01/25/2021 MALCRR 3,278 (H) 09/16/2019 Outpatient/DOG HANDLER meds BLOOD GLUCOSE METER (eCulletUCH VERIO FLEX METER) device dulaglutide (TRULICITY) 4.5 mg/0.5 mL PnIj flash glucose (FREESTYLE ORTEGA 14 DAY) scanning reader FREESTYLE ORTEGA 14 DAY sensor kit insulin aspart (NOVOLOG FLEXPEN INSULIN) 100 unit/mL (3 mL) pen insulin regular human CONCENTRATED 500 units/mL (HUMULIN R U-500, CONC, KWIKPEN) injection pen JARDIANCE 25 mg tablet metFORMIN (GLUCOPHAGE) 1000 mg tablet - continues to see [facility] - recent finger stick readings 350, no symptoms of hyperglycemia - discussed with patient taking medications as prescribed as well as changing diet - recommended to reduce carb intake and simple carbs throughout the day and night and see if fasting glucose improved in morning - plans to see [facility] clinic soon Assessment & Plan (04/23/2021 10:36 AM EST): The Pt continues to work with his [facility] Diabetic Specialist and stated that his Finger sticks range between 98-160, Pt needs to get additional labs to assess kidney fx and his diabetes Assessment & Plan (01/08/2021 1:21 PM EDT): The Pt continues to deal with elevated A1C and sees his Drop Forger Helper on a regular basis Results for DARREL [...] and has a f/u appointment with his Drop Forger Helper on 09/29/2020 08/27/2020 Endocrine referral: Assessment and [...] his blood sugars. Could also consider insulin manager division like pioglitazone at low dose. ?? Discussed [...] Krystle Santos RN Spoke with pharmacist at [facility], states if PCP will send scripts for [...] between 7 or 8 and talked through senior accountant [id number] that the Pt has to have [...] to 110 and send message to his shed boss Isha Carmen APRN??with [facility] Assessment & Plan (05/28/2020 3:01 [...] to 105 and send message to his shed boss Isha Carmen APRN with [facility] ?? Assessment & Plan (04/08/2020 [...] the care of Isha Carmen APRN with [facility] and was last prescribed insulin [...] - 64 pg/mL 64.2 74 (H) Vitamin N24-Bmztakj Latest Ref Range: 20 - 50 ng/mL [...] Diabetic care will be transferred over to [facility] and he has the following appointment: 03/27/2020 11:00 AM with Julia Ceja RD at the Diabetes Center at [address] [facility] Assessment & Plan (02/14/2020 4:56 PM EDT): Patient called and stated he's a diabetic and was advised to speak with his pcp Deep if anything was wrong. He stated he woke up with a small cut in right foot on the small toe. I did offer the CC but stated he would like to speak with his pcp first [phone] (bangladeshi speaking) Assessment & Plan (11/13/2019 7:10 PM [...] - 22 (calc) 23 (H) eGFR (NON -Mozambican) Latest Ref Range: > OR = 60 [...] Pt is currently seeing our Diabetic Specialist NURSERY TEACHER at [facility], talking with NURSERY TEACHER on phone the Pt has developed an [...] to meet with the [facility] Nurse with the goal to bring [...] will continue to see Diabetic Clinic at [facility] for additional medication adjustments and will [...] will continue to see Diabetic Clinic at [facility] and re-evaluate Pt care in one [...] 6-8 weeks to be seen by his chummer Dr. Newberry. ?? Attending Addendum: I have [...] that he is on this. I contacted [facility] pharmacy and they reported that on [...] call back to Fani Heath PharmD at [phone] 08/04/21 Fani Heath PharmD called Pt Called patient for scheduled pharmacist HTN visit. I was not able to reach patient and LVM requesting a call back. ID [id number] assisted call. Of note, appears patient was [...] Dr. Newberry and should be visible in [employer]. We would like you to please call [...] pain and dyspnea # h/o CVA (NOT NV -- historical charting error) # Dyslipidemia with [...] pain and dyspnea # h/o CVA (NOT NV -- historical charting error) # Dyslipidemia with [...] , will ask our [facility] Nurse to call Pt and verify [...] , will ask our [facility] Nurse to call Pt and verify [...] in one week to manage HTN, used candy supervisor [id number], Pt denies experiencing any pain or tightness [...] EST): When the Pt was admitted to [facility] for [facility]ICOL[facility] they had stopped his Lisinopril [...] medication up weekly, spent 35 min with Sharepoint Developer [id number], will f/u with Pt in one month [...] needs to get all his meds in bangladeshi and has an appointment on 02/24/2020 02/24/2020 ??3:40 PM Provider Deep Pruitt APRN [facility] Assessment & Plan (02/22/2020 5:19 AM EDT): I see that Losartan help protect the kidneys from damage due to diabetes, I will discontinue the atenolol and start him at Losartan 25 mg and slowly titrate him up and the Pt needs to get all his meds in bangladeshi and has an appointment on 02/24/2020 02/24/2020 ??3:40 PM Provider Deep Pruitt APRN [facility] Assessment & Plan (03/16/2019 6:10 AM EST): [...] (calc) 6.9 (H) The ASCVD Risk score (Sharonhenry WOODWARD Jr., et al., 2013) failed to calculate for the following reasons: The patient has a prior NV or stroke diagnosis Assessment & Plan (12/18/2018 [...] to call Pt with results seen below (Lao only please) -And let him know that his UTI results were negative and there is no reason for antibiotics 09/08/2021 PCP Note: Pt c/o burning with urination for the past 2 day, will ask Pt to do a urine culture before prescribing an Antibiotic medication used Lao interpretor 360 09/10/2021 PCP Addendum Note: The Pt has [...] years ago the Pt had colonoscopy at [facility] in [facility] and was told to return in a year for further surveillance because he had several polyps removed, the concern is that the Pt had a CVA x 2 in 2017 and need Neuro clearance and the Neuro referral was put in today Assessment & Plan (11/13/2019 7:05 PM EDT): Pt had a Colonoscopy done in [facility] in [facility] one year ago and was [...] AM EDT): 01/02/2020 the 49 yo male (Lao speaking only) with a BMI of 39.6, last A1C Dec 2019 increased to 13.7, in 2018 the Pt had a right sided stroke (minimal residual speech and walking issues) and is working with our Diabetic NURSERY TEACHER Specialist to bring his sugars down, Pt [...] Plan (11/13/2019 7:08 PM EDT): Used a Sharepoint Developer 1307 for the entire 25 min visit, Pt [...] with Pt in 1 weeks, used a Sharepoint Developer 175 throughout the visit -10/23/2019 the Pt [...] with Pt in 2 weeks, used a Sharepoint Developer Propio through out the visit Assessment & [...] (H) -Pt will be referred to the [facility] Scalp Treatment Specialist to assess if his current diet is [...] Perla Rice RN message to Deep Pruitt NURSERY TEACHER Call was returned to patient and his [...] input from his primary care physician and machine compositor would be helpful. Considerations would include: stopping amlodipine, increasing diuretics, re-assessing labs for kidney function (e.g. is proteinuria worsening), and dietary interventions. Also counseled patient that weight loss would likely be helpful. I think his interactive project manager can be helpful with managing his [...] input from his primary care physician and machine compositor would be helpful. Considerations would include: stopping amlodipine, increasing diuretics, re-assessing labs for kidney function (e.g. is proteinuria worsening), and dietary interventions. Also counseled patient that weight loss would likely be helpful. I think his interactive project manager can be helpful with managing his [...] plan for regular follow up with your interactive project manager, primary care physician, and machine compositor ?? Follow-up: as needed with me ?? Other interventions: recommend keeping the legs elevated when sitting (try to get feet above the level of the heart to get the fluid to come down; also recommend new pair of custom graduated compression stockings - wear daily - please call [facility] for an appointment to be measured for the new stockings so they fit you well. [facility] [address] [place] [id number] , PCP Notes: Will stop Amlodipine 5 mg PO QD and start Pt on Spirolactone 25 mg PO QD and assess in 2 weeks if Spirlactatone needs to be increased to 25 mg BID Will fax to [facility] order for Compression stocking and put contact info in AVS for the Pt to call and arrange for sizing CCM: 10 minutes 12/29/2020 Deep Pruitt APRN Assessment & Plan (06/24/2020 3:44 PM EST): 06/13/2020 the Pt had 2 pairs of Knee high compression stockings ordered and sent to [facility] and the Pt has to call [facility] so he can be measured and then [...] Edema, lower extremity R60.0, will send to [facility] today Assessment & Plan (05/26/2020 5:58 [...] in 2 days at his next appointment Lao Interpretor #[id number] CCM: 20 minutes 05/26/2020 Deep [...] MD Department Ambulatory Surgical Specialties - Vascular [facility] [address] [facility] ??[place] [address] Assessment & Plan (01/30/2020 4:18 PM EDT): [...] EST): When the Pt was admitted to [facility] for [facility] they had stopped his Lisinopril [...] needs to get all his meds in [place], sued senior accountant Mikhail Lore Administrative encounter 02/07/201909/2020 Assessment & Plan (02/07/2019 7:01 AM EDT): The Pt asked for a [place] State form Medical Report for Person who needs care , with Goal to have the Pt's partner as his commercial litigation associate, spent 10 mins filling it out Stroke [...] How often do you attend chur or gnosticist services? More than 4 times [...] Date Recorded PHQ-2 Total Score 2 02/17/2022 [facility] of Occupat ional Health - Occupational Stress [...] your living situation today? I have a [facility] place to live 05/19/2022 Sex and [...] caries associated with failed or defective dental lutheran Dental caries on smooth surface penetrating into [...] Results * (ABNORMAL) POCT HgbA1c, total CPT: 24073 (06/23/2022 4:21 PM EST) Pathologist [facility] Hemoglobin A1C, POC 10.6 4.0 - 6.0 % [facility] Test Lot Number [id number] [facility] Test Lot Exp Date 09/18/22 Date Format: MM/DD/YYYY [facility] Blood specimen (specimen) 06/23/2022 4:21 PM EST Deep Pruitt APRN POINT OF CARE TEST ORDERABL ES Final Result [facility] * (ABNORMAL) LDL cholesterol, direct (03/14/2022 [...] Comment Performing Lab: ?Site ID: [id number] ?Name: [facility] ?Address: [address] [place] [address], [facility] [place] [address] ?Director: Yadira Bowman M.D. Deep Pruitt APRN LAB BLOOD ORDERABLES Final Result [facility] [address] [place] [address] * (ABNORMAL) Albumin/creatinine panel, urine, random (02/15/2022 2:02 PM EDT) Albumin, Urine, Random 1,885.3 Reference Range Not Established mg/L 02/15/2022 3:42 PM EDT [facility] Creatinine, Urine, Random 60 Reference Range Not Established mg/dL 02/15/2022 3:42 PM EDT [facility] Albumin/Creatin ine Ratio, Urine, Random 3,168.6(H ) <30.0 mg/g Cr 02/15/2022 3:42 PM EDT [facility] Comment: Moderately increased albuminuria (formerly microalbuminuria): ??30-300 mg/g Cr Significantly increased albuminuria (overt albuminuria): ? >300 mg/g Cr Urine Collection / Unknown 02/15/2022 2:02 PM EDT 02/15/2022 2:59 PM EDT Yue Dominguez ENROLLMENT SERVICES VICE PRESIDENT URINE ORDERABLES Final Res ult [facility] [address] [place] [address] * PSA, total (Q) (09/09/2021 9:01 AM EDT) Prostate Specific Antigen Total 0.44 < OR = 4.00 ng/mL [facility] Comment: The total PSA value from this assay system is standardized against the WHO standard. The test result will be approximately 20% lower when compared to the equimolar-standardized total PSA (Jana Warrington). Comparison of serial PSA results should be [...] Comment Performing Lab: ?Site ID: [id number] ?Name: [facility] ?Address: [address] [place] [address], [place] [address] ?Director: Yadira Bowman M.D. us Deep Pruitt ENROLLMENT SERVICES VICE PRESIDENT LAB BLOOD ORDERABLES Final Result [facility] [address] [place], [place] [address] * Colonoscopy (09/03/2020 10:16 AM EDT) [facility] Colonoscopy [facility] Endoscopy Patient Name: Darrel Bhardwaj ? Procedure Date: 09/03/2020 10:16 AM ?Date of : 1970 Age: 50 ? Admit Type: Outpatient Gender: Male ?CSN #: [id number] Note Status: Finalized ?Procedure Date no Time: [...] bowel preparation was evaluated using the BBPS ([place] ? Bowel Preparation Scale) with scores of: [...] Procedure Code(s): ?? --- Professional --- ? 46332, Colonoscopy, flexible; with biopsy, single or ? multiple Diagnosis Code(s): ?? --- Professional --- ? Z86.010, Personal history of colonic polyps ? D12.0, Benign neoplasm of cecum CPT copyright 2018 [employer]. All rights reserved. The codes documented in this report are preliminary and upon braille coder review may be revised to meet [...] In: 10:41:36 AM Scope Out: 10:58:33 AM [facility] 09/03/2020 10:1 6 AM EDT Provider Not In System GI PROCEDURE ORDERABLES F inal Result [facility] * Hepatitis C Ab with reflex to HCV PCR (02/06/2020 7:18 AM EDT) Hepatitis C Antibody Negative Negative 02/06/2020 4:21 PM EDT [facility] Comment:A negative result do es not exclude HCV infection, since antibodies are not detectable for 4-8 weeks after initial infection, or may not develop in compromised hosts. In high-risk individuals, repeat antibody testing in 2 months and/or HCV RNA PCR should be considered. Blood Venipuncture / Unknown 02/06/2020 7:18 AM EDT 02/06/2020 8:06 AM EDT Jordyn Hills ENROLLMENT SERVICES VICE PRESIDENT LAB BLOOD ORDERABLES Fauzia l Result [facility] [address] [place] [address] * HIV 1/2 ag/ab, w/reflexes (Q) (12/10/2018 [...] ?? For additional information please refer to http://education.BioActor/faq/UNG841 (This link is being provided for informational/ educational purposes only.) The performance of this assay has not been clinically validated in patients less than 2 years old. Blood 12/10/2018 10:3 2 AM EDT 12/10/2018 10:32 AM EDT Carlos Eduardo Joyner MD LAB BLOOD ORDERABLES Fi nal Result [facility] [address] from Last 3 Months or Most Recently Relevant to Health Maintenance Insurance [place] Advance Directives * Full ACLS (Latest Code Status on File) Date Activated Date Inactivated Comments 02/04/2020 9:46 PM 02/07/2020 8:23 PM Question Answer Comments With Whom was the Code Status Discussed? Patient Care Teams Process Eng Relationship Specialty Start Date End Date Deep Pruitt APRN PCP - General 05/22/19
--- OUTSIDE RECORDS SUMMARY | 2024-09-25 12:51 | XMS_ITS | Encounter Summary ---
Author Organization [facility] Address [address] [place] [address] Care Team Providers Care Crisis Specialist Name Role Phone Deep Pruitt APRN Primary Care Provider Reason for Visit * Reason Comments Medication Refill Encounter Details Date Type Department Care Team ([facility] st Contact Info) Description 09/16/2021 Refill [facility] [address] [place] [address] Deep Pruitt APRN [address] [place] [phone] Medication Refill Social History Tobacco Use [...] Date Recorded PHQ-2 Total Score 5 09/14/2021 [facility] Occupat ional Health - [...] documented as of this encounter Care Teams Crisis Specialist Relationship Specialty Start Date End Date eDep Pruitt APRN PCP - General 05/22/19 documented as of this encounter
--- OUTSIDE RECORDS SUMMARY | 2024-09-25 12:51 | XMS_ITS | Encounter Summary ---
Author Organization [facility] Address [address] [place] [address] Care Team Providers Care Lot Attendant Name Role Phone Deep Pruitt APRN Primary Care Provider Reason for Visit * Reason Comments Medication Refill Encounter Details Date Type Department Care Team ([facility] st Contact Info) Description 09/23/2020 Refill [facility] [address] [place] [address] Deep Pruitt APRN [address] [place] [phone] Medication Refill Social History Tobacco Use [...] Answer Date Recorded PHQ-2 Score 2 07/07/2020 [facility] of Occupat ional [facility] - Occupational Stress Questionnaire Answer Date [...] documented as of this encounter Care Teams Lot Attendant Relationship Specialty Start Date End Date Deep Pruitt APRN PCP - General 05/22/19 documented as of this encounter
--- OUTSIDE RECORDS SUMMARY | 2024-09-25 12:51 | XMS_ITS | Encounter Summary ---
Author Organization [facility] Address [address] [place] [address] Care Team Providers Care Director Of Social Media Marketing Name Role Phone Deep Pruitt APRN Primary Care Provider Reason for Visit * Reason Comments Medication Refill Encounter Details Date Type Department Care Team ([facility] st Contact Info) Description 09/17/2020 Refill [facility] [address] [place] [address] Deep Pruitt APRN [address] [place] [phone] Medication Refill Social History Tobacco Use [...] 07/07/2020 [facility] of Occupat ional [facility] - Occupational Stress Questionnaire Answer Date [...] of this encounter Care Teams Director Of Social Media Marketing Relationship Specialty Start Date End Date Deep Pruitt APRN PCP - General 05/22/19 documented as of this encounter
--- OUTSIDE RECORDS SUMMARY | 2024-09-25 12:51 | XMS_ITS | Encounter Summary ---
Author Organization [facility] Address [address] [place] [address] Care Team Providers Care Deck Supervisor Name Role Phone Romelia Pruittian Niko LOPEZ Primary Care Provider Encounter Details Date Type Department Care Team (Late st Contact Info) Description 09/06/2021 Scanned Document [facility] [address] [place] [address] External, Provider Social History Tobacco Use Types [...] Date Recorded PHQ-2 Total Score 2 09/08/2021 [facility] of Occupat ional [...] as of this encounter Care Teams Deck Supervisor Relationship Specialty Start Date End Date Deep Pruitt APRN PCP - General 05/22/19 documented as of this encounter
--- OUTSIDE RECORDS SUMMARY | 2024-09-25 12:51 | XMS_ITS | Encounter Summary ---
Author Organization [facility] [employer] [facility] and [facility] Address [address] [place] [address] Care Team Providers Care Turbo Operator Name Role Phone Romelia Pruittian Niko LOPEZ Primary Care Provider Encounter Details Date Type Department Care Team (Latest Contact Info) Description 08/10/2021 Transcribed Orders [facility] [address] [place] [address] Taylor Malagon, BUILDING CONSTRUCTION INSPECTOR [address] [place] [address] Stage 3a chronic kidney disease [...] Date Recorded PHQ-2 Total Score 4 07/13/2021 [facility] of Occupat ional Health - [...] - 4.5 mg/dL 08/10/2021 10:26 AM EDT [facility] Blood Venipuncture / Unknown 08/10/2021 9:40 AM EDT 08/10/2021 9:56 AM EDT Taylor Malagon APRN LAB BLOOD ORDERABLES Fauzia guzman Result [facility] [address] [place] [address] documented in this encounter Visit Diagnoses Diagnosis Stage 3a chronic kidney disease (CKD) (HC Code) (HC CODE)- Primary documented in this encounter Additional Health Concerns Infection Onset Date Last Indicated Resolved Time COVID-19 09/29/2021 09/29/2021 10/19/2021 7:19 PM EDT Assessment Noted Time PHQ-9 Depression Total Score: 11 022 2:28 PM EST documented as of this encounter Care Teams Turbo Operator Relationship Specialty Start Date End Date Deep Pruitt APRN PCP - General 05/22/19 documented as of this encounter
--- OUTSIDE RECORDS SUMMARY | 2024-09-25 12:51 | XMS_ITS | Encounter Summary ---
Author Organization [facility] Address [address] [place] [address] Care Team Providers Care Heat Treat Supervisor Name Role Phone Deep Pruitt APRN Primary Care Provider Encounter Details Date Type Department Care Team ([facility] st Contact Info) Description 06/21/2022 Scanned Document [facility] [address] [place], [place] [phone] Deep Pruitt APRN [address] [place] [phone] Social History Tobacco Use Types [...] you attend chur ch or moravian services? More than 4 times per year [...] PHQ-2 Total Score 2 02/17/2022 [facility] - Occupational Stress Questionnaire Answer Date [...] your living situation today? I have a [facility] place to live 05/19/2022 Sex and [...] as of this encounter Care Teams Heat Treat Supervisor Relationship Specialty Start Date End Date Deep Pruitt APRN PCP - General 05/22/19 documented as of this encounter
--- OUTSIDE RECORDS SUMMARY | 2024-09-25 12:51 | XMS_ITS | Encounter Summary ---
Author Organization [facility] [employer] [facility] and [facility] Address [address] [place] [phone] Care Team Providers Care Data Mining Analyst Name Role Phone Deep Pruitt APRN Primary Care Provider Encounter Details Date Type Department Care Team (Late st Contact Info) Description 08/05/2021 Orders Only [facility] [address] [place] [address] Carolyn Marin MD [address] [place] [phone] Essential hypertension Social History Tobacco Use [...] Date Recorded PHQ-2 Total Score 4 07/13/2021 [facility] of Occupat ional [...] as of this encounter Care Teams Data Mining Analyst Relationship Specialty Start Date End Date Deep Pruitt APRN PCP - General 05/22/19 documented as of this encounter
== END 2024-09-25 12:26 | disposition home or self-care (01) ==
LOC: HO.HKA 11:27
PROVIDERS: PCP Student in an Organized Health Care Education/Training Program; Visit Provider Internal Medicine Nephrology
DX: N18.4 Chronic kidney disease, stage 4 (severe) (principal); E11.21 Type 2 diabetes mellitus with diabetic nephropathy; N25.81 Secondary hyperparathyroidism of renal origin; E55.9 Vitamin D deficiency, unspecified; I12.9 Hypertensive chronic kidney disease with stage 1 through stage 4 chronic kidney disease, or unspecified chronic kidney disease
CPT/HCPCS: 99214

== ENCOUNTER → 2024-09-25 11:26 | Outpatient (BNVA) | payer MEDICAID, SELFPAY | PROVIDERS: PCP Student in an Organized Health Care Education/Training Program; Visit Provider Internal Medicine Nephrology | DX: E11.22 Type 2 diabetes mellitus with diabetic chronic kidney disease (principal); E11.21 Type 2 diabetes mellitus with diabetic nephropathy; I12.9 Hypertensive chronic kidney disease with stage 1 through stage 4 chronic kidney disease, or unspecified chronic kidney disease; E78.5 Hyperlipidemia, unspecified; E55.9 Vitamin D deficiency, unspecified; N25.81 Secondary hyperparathyroidism of renal origin; N18.4 Chronic kidney disease, stage 4 (severe); Z86.73 Personal history of transient ischemic attack (TIA), and cerebral infarction without residual deficits | CPT/HCPCS: 99212 ==

== ENCOUNTER 2024-10-07 12:42 | Outpatient (REF) | payer MEDICAID, SELFPAY ==
--- OUTSIDE RECORDS SUMMARY | 2024-10-07 13:39 | XMS_ITS | Encounter Summary ---
Author Organization [facility] Address [address] [place] [address] Care Team Providers Care Retail Product Advisor Name Role Phone Deep Pruitt APRN Primary Care Provider [phone] Reason for Visit * Reason Comments Medication Refill Encounter Details Date Type Department Care Team ([facility] st Contact Info) Description 06/07/2022 Refill [facility] [address] [place], [place] [phone] Deep Pruitt APRN [address] [place] [address] Medication Refill Social History Tobacco [...] Date Recorded PHQ-2 Total Score 2 02/17/2022 [facility] of Occupat ional Health - [...] your living situation today? I have a [facility] place to live 05/19/2022 Sex and [...] as of this encounter Care Teams Retail Product Advisor Relationship Specialty Start Date End Date Deep Pruitt APRN PCP - General 05/22/19 documented as of this encounter
[2024-10-07 16:08] LABS: MANUAL DIFF FLAG NO
[2024-10-07 16:17] LABS: Hematocrit 45.8 % (42.0-52.0); Hemoglobin 14.8 g/dl (14.0-18.0); Mean Corpuscular HGB Conc 32.3 g/dl (31.0-36.0); Mean Corpuscular Hemoglobin 28.5 pg (27.0-33.0); Mean Corpuscular Volume 88.2 fL (80.0-98.0); Mean Platelet Volume 12.7 fL (9.4-12.4); Platelet Count 299 X10*3/uL (160-400); Red Blood Count 5.19 X10*6/uL (4.60-5.80); Red Cell Distribution Width 15.5 % (11.0-16.0); White Blood Count 12.1 X10*3/uL (4.8-10.8)
[2024-10-07 16:22] LABS: Estimated Average Glucose 220 mg/dL; Hemoglobin A1c % 9.3 % (<6.0); Total Hemoglobin (HGBA1C) 3885.1177 umol/L
[2024-10-07 16:59] LABS: Folate 5.4 ng/mL (> or = 4.0); Folate 5.8 ng/mL (> or = 4.0); Vitamin B12 395 pg/mL (200-900); Vitamin B12 403 pg/mL (200-900)
[2024-10-07 17:15] LABS: C Reactive Protein 0.27 mg/dL (< or = 0.50); Cholesterol 297 mg/dL (<200); Gamma Glutamyl Transpeptidase 50 U/L (11-51); Iron 83 mcg/dL (45-160); Percent Iron Saturation 50 % (15-50); Total Iron Binding Capacity 166 mcg/dL (228-428); Triglycerides 210 mg/dL (<150); Unsaturated Iron Binding 83 ug/dL
[2024-10-07 17:17] LABS: Anion Gap 13 (12-20); Blood Urea Nitrogen 49 mg/dL (9-16); Carbon Dioxide 24 mmol/L (22-29); Chloride 105 mmol/L (96-108); HDL Cholesterol 57 mg/dL (>40); Potassium 5.2 mmol/L (3.3-5.1); Sodium 137 mmol/L (135-145)
[2024-10-07 17:18] LABS: Ferritin 58 ng/mL (20-250); TSH reflex Free T4 1.74 uIU/mL (0.32-4.0); TSH reflex Free T4 1.75 uIU/mL (0.32-4.0); Vitamin D 25-OH Total 12.4 ng/mL (>30); Vitamin D 25-OH Total 14.4 ng/mL (>30)
[2024-10-07 17:23] LABS: Alanine Aminotransferase 10 U/L (0-40); Albumin Level 2.3 g/dL (3.5-5.0); Alkaline Phosphatase 128 U/L (39-117); Aspartate Amino Transferase 18 U/L (5-37); Bilirubin Total 0.3 mg/dL (0.0-1.0); Calcium 8.7 mg/dL (8.4-10.2); Cholesterol 295 mg/dL (<200); LDL Cholesterol Calculated 197 mg/dL (<100); Total Protein 5.8 g/dL (6.5-8.0); Triglycerides 209 mg/dL (<150); Uric Acid 5.4 mg/dL (3.4-7.0)
[2024-10-07 17:28] LABS: Insulin 105 uU/mL (2-29)
[2024-10-07 17:52] LABS: Basophils Absolute Auto 0.1 X10*3/uL (0.0-0.2); Basophils Percent Auto 0.8 % (0-2); Eosinophils Absolute Auto 0.4 X10*3/uL (0.0-0.4); Hematocrit 47.8 % (42.0-52.0); Hemoglobin 15.3 g/dl (14.0-18.0); Imm Gran Abs Auto 0.05 X10*3/uL (0.00-0.03); Imm Gran Pct Auto 0.5 % (0.0-0.4); Lymphocytes Absolute Auto 1.6 X10*3/uL (1.2-4.9); Mean Corpuscular Hemoglobin 28.3 pg (27.0-33.0); Mean Corpuscular Volume 88.5 fL (80.0-98.0); Mean Platelet Volume 12.5 fL (9.4-12.4); Monocytes Absolute Auto 0.7 X10*3/uL (0.1-1.2); Monocytes Percent Auto 6.8 % (2-11); Neutrophils Absolute Auto 7.6 x10*3/uL (2.0-8.3); Neutrophils Percent Auto 72.9 % (45-73); Platelet Count 255 X10*3/uL (160-400); Red Cell Distribution Width 15.8 % (11.0-16.0); White Blood Count 10.4 X10*3/uL (4.8-10.8)
[2024-10-07 17:54] LABS: Estimated Glomerular Filt Rate 10; Glucose Random 397 mg/dL (60-115)
[2024-10-07 17:56] LABS: Creatinine Urine 42.21 mg/dL; Microalbumin Urine > 2000.0 mg/L
[2024-10-07 19:20] LABS: HDL Cholesterol 57 mg/dL (>40); LDL Cholesterol Calculated 198 mg/dL (<100)
[2024-10-08 08:04] LABS: Syphilis Screen Nonreactive (Nonreactive)
[2024-10-08 08:12] LABS: HBS Num1 3.83 mIU/mL (0-7.99); HBc Num1 0.05 S/CO (0.00-0.79); HBsAGNum1 0.36 S/CO (0.00-0.99); HIV AB/AG Nonreactive (Nonreactive); HIV Num 1 0.06 S/CO (0.00-0.99); Hepatitis B Core Antibody Nonreactive (Nonreactive); Hepatitis B Surface Antigen Negative (Negative); ~HepC Num1 0.21 S/CO (0.00-0.79); ~Hepatitis B Surface Antibody NONREACTIVE (Nonreactive); ~Hepatitis C Antibody Nonreactive (Nonreactive)
[2024-10-08 11:11] LABS: CT PCR NOT DETECTED (Not Detect.); NG PCR NOT DETECTED (Not Detect.)
[2024-10-10 20:28] LABS: Alkaline Phosphatase Bone 21.3 mcg/L (7.6-14.9)
[2024-10-10 21:33] LABS: Vitamin A 26 mcg/dL (38-98)
[2024-10-11 15:03] LABS: Vitamin B1 27 nmol/L (8-30)
== END 2024-10-07 12:43 | disposition home or self-care (01) ==
LOC: HO.HHCL 12:42
PROVIDERS: Registered Nurse; Student in an Organized Health Care Education/Training Program; Surgery; Visit Provider Internal Medicine Nephrology
DX: Z00.00 Encounter for general adult medical examination without abnormal findings (principal); M10.9 Gout, unspecified; Z13.820 Encounter for screening for osteoporosis; I10 Essential (primary) hypertension; E11.29 Type 2 diabetes mellitus with other diabetic kidney complication; R80.9 Proteinuria, unspecified; Z79.4 Long term (current) use of insulin; E66.9 Obesity, unspecified; Z68.37 Body mass index [BMI] 37.0-37.9, adult; N18.32 Chronic kidney disease, stage 3b; E11.42 Type 2 diabetes mellitus with diabetic polyneuropathy; G47.33 Obstructive sleep apnea (adult) (pediatric); N18.30 Chronic kidney disease, stage 3 unspecified
CPT/HCPCS: 36415; 80048; 80053; 80061; 82043; 82306; 82550; 82570; 82607; 82728; 82746; 82977; 83036; 83525; 83540; 84075; 84425; 84443; 84550; 84590; 85025; 85027; 86140; 86704; 86706; 86780; 86803; 87340; 87389; 87491; 87591

== ENCOUNTER 2024-10-09 10:49 | Outpatient (AMB) | payer MEDICAID, SELFPAY ==
[2024-10-09 11:04] VITALS: BP 116/70; PULSE 99; O2SAT 95; BMI 40.5
--- NOTE | 2024-10-09 11:04 | HO.NEPHOV_ITS ---
Vital Signs 10/09/24 11:04 Height 5 ft 9 in Weight 274 lb 2 oz BMI 40.5 BP 116/70 Blood Pressure Location Rt brachial Position Sitting Pulse 99 Pulse Source Pulse Oximeter Pulse Oximetry (%) 95 Oxygen Delivery Method Room Air Intake Visit Reasons: 2 weeks fu Supervisor Powder And Primer Canning Required: Yes Supervisor Powder And Primer Canning Language: Agency Sales Director Services: Supervisor Powder And Primer Canning Present Supervisor Powder And Primer Canning Name: Chel [id number] Information Interpreted: clinical only Accompanied by: Spouse Allergies Penicillins [PENICILLINS] Allergy (Intermediate, Verified 10/09/24 11:13) RASH, DIFFICULTY BREATHING HPI Comments Details: Darrel is a 53 y/o male with a medical history of longstanding DMII, REGI, HTN, HLD, CVA with hemiparesis (reports in 2019), DM II, REGI, gout, GERD, rheumatoid arthritis and CKD 4 with progressive worsening renal function. patient has elevated urine protein/creatinine ratio of ~14 .renal ultrasound from 03/25 unremarkable- bilateral pelviectasis without trevor hydronephrosis. serum immunofixation with faint IgG kappa monoclonal band present. He denies any uremic symptoms but has been having worsening edema [facility] Medical History (Updated 10/09/24 @ 11:33 by Grayson Rodriguez MD) HTN (hypertension) Leukocytosis Memory loss Obesity Idiopathic gout of multiple sites GERD (gastroesophageal reflux disease) Hypertensive chronic kidney disease Secondary hyperparathyroidism, renal Sleep apnea Type 2 diabetes mellitus Schizoaffective disorder Chronic pain syndrome Diabetic polyneuropathy Gout Surgical History History of esophagogastroduodenoscopy (EGD) H/O colonoscopy Family History Father Cancer Diabetes Mother Cancer Diabetes Colon cancer Family/Other Cancer Diabetes Social History Household Members: Spouse Housing: House Do you presently have visiting nurse or other home services: Yes Alcohol intake: never Patient Tobacco Use Status: Never used Tobacco service: No Review of Systems Const All systems reviewed & are unremarkable except as noted in HPI and below Physical Exam Vital Signs: Last Vital Signs Pulse 99 10/09/24 11:04 BP 116/70 10/09/24 11:04 Pulse Ox 95 10/09/24 11:04 Oxygen Delivery Method Room Air 10/09/24 11:04 BMI result Body Mass Index 40.5 Const General: comfortable and no acute distress Orientation/consciousness: patient oriented x3 HEENT Head: Yes normocephalic Mouth: Normal oral and palatal mucosa present Eyes EOM: EOMs intact bilaterally Neck Neck: Yes supple Resp Auscultation: clear to auscultation bilaterally Cardio Jugular venous distension: no JVD Rate: regular rate GI Palpation (GI): Soft to palpation Auscultation: normal bowel sounds General: Yes no CVA tenderness Back/Spine/Pelvis Back: no CVA tenderness Skin General skin exam: no rashes or lesions noted Neuro General: patient oriented x3 and moves all extremities Extrem General: Yes no pedal edema Results Reviewed Nephrology Results: Hgb 15.3 g/dl (14.0-18.0) 10/07/24 WBC 10.4 X10*3/uL (4.8-10.8) 10/07/24 Plt Count 255 X10*3/uL (160-400) 10/07/24 Sodium 137 mmol/L (135-145) 10/07/24 Potassium 5.2 mmol/L (3.3-5.1) H 10/07/24 Chloride 105 mmol/L (96-108) 10/07/24 Carbon Dioxide 24 mmol/L (22-29) 10/07/24 BUN 49 mg/dL (9-16) H 10/07/24 Creatinine 5.73 mg/dL (0.5-1.4) H* 10/07/24 Calcium 8.7 mg/dL (8.4-10.2) 10/07/24 Phosphorus 3.5 mg/dL (2.7-4.5) 09/19/24 PTH Intact 683.9 pg/mL (8.7-77.1) H 09/19/24 Urine Creatinine 42.21 mg/dL 10/07/24 Assessment & Plan Assessment & Plan (1) Hyperkalemia: Code(s): E87.5 - Hyperkalemia Category: Medical (2) CKD (chronic kidney disease) stage 4, GFR 15-29 ml/min: Code(s): N18.4 - Chronic kidney disease, stage 4 (severe) Category: Medical (3) Diabetic nephropathy associated with type 2 diabetes mellitus: Code(s): E11.21 - Type 2 diabetes mellitus with diabetic nephropathy Category: Medical (4) Secondary hyperparathyroidism: Code(s): N25.81 - Secondary hyperparathyroidism of renal origin Category: Medical (5) Vitamin D deficiency: Code(s): E55.9 - Vitamin D deficiency, unspecified Category: Medical (6) HTN (hypertension): Code(s): I10 - Essential (primary) hypertension Category: Medical Qualifiers: Hypertension type: primary hypertension Qualified Code(s): I10 - Essential (primary) hypertension Plan CKD due to diabetic nephropathy. Has a faint monoclonal band present on workup. He is on Jardiance and lasix. He will not tolerate CALEB/ARB for proteinuria with his current GFR and hyperkalemia. On Vitamin D. BP at home OK. No NSAID's. Good hydration. Discussed about renal replacement. Sent for Home dialysis education. K lowering medications ordered.Answered all questions. F/U labs ordered. Time spent for visit and arranging education and documentation 45 minutes. Orders: Orders Creatinine 2 Weeks N18.4 - Chronic kidney disease, stage 4 (severe) Blood Urea Nitrogen 2 Weeks N18.4 - Chronic kidney disease, stage 4 (severe) Complete Blood Count Auto Diff 2 Weeks N18.4 - Chronic kidney disease, stage 4 (severe) Electrolytes 2 Weeks N18.4 - Chronic kidney disease, stage 4 (severe) Medications: New sodium polystyrene sulfonate 30 grams orally once a week; 453.6 grams 3RF Coding Level of Care Code Est Pt Level 5 (26215) Diagnoses Hyperkalemia E87.5 CKD (chronic kidney disease) stage 4, GFR 15-29 ml/min N18.4 Diabetic nephropathy associated with type 2 diabetes mellitus E11.21 Secondary hyperparathyroidism N25.81 Vitamin D deficiency E55.9 Primary hypertension I10 Hypertension type: primary hypertension
--- OUTSIDE RECORDS SUMMARY | 2024-10-09 11:39 | XMS_ITS | Encounter Summary ---
Author Organization [facility] Address [address] [place] [address] Care Team Providers Care Milk Bottling Machine Operator Name Role Phone Deep Pruitt APRN Primary Care Provider Reason for Visit * Reason Comments Medication Refill Encounter Details Date Type Department Care Team ([facility] st Contact Info) Description 06/07/2022 Refill [facility] [address] [place], [place] [phone] Deep Pruitt APRN [address] [place] [address] [...] you attend chur ch or jain services? More than 4 times per year [...] Date Recorded PHQ-2 Total Score 2 02/17/2022 [facility] of Occupat ional Health [...] your living situation today? I have a [facility] place to live 05/19/2022 Sex and [...] as of this encounter Care Teams Milk Bottling Machine Operator Relationship Specialty Start Date End Date Deep Pruitt APRN PCP - General 05/22/19 documented as of this encounter
== END 2024-10-09 11:46 | disposition home or self-care (01) ==
LOC: HO.HKA 10:49
PROVIDERS: PCP Student in an Organized Health Care Education/Training Program; Visit Provider Internal Medicine Nephrology
DX: E87.5 Hyperkalemia (principal); E11.22 Type 2 diabetes mellitus with diabetic chronic kidney disease; I12.9 Hypertensive chronic kidney disease with stage 1 through stage 4 chronic kidney disease, or unspecified chronic kidney disease; N18.4 Chronic kidney disease, stage 4 (severe); N25.81 Secondary hyperparathyroidism of renal origin; E55.9 Vitamin D deficiency, unspecified
CPT/HCPCS: 99215

== ENCOUNTER → 2024-10-09 10:49 | Outpatient (BNVA) | payer MEDICAID, SELFPAY | PROVIDERS: PCP Student in an Organized Health Care Education/Training Program; Visit Provider Internal Medicine Nephrology | DX: E11.22 Type 2 diabetes mellitus with diabetic chronic kidney disease (principal); I12.9 Hypertensive chronic kidney disease with stage 1 through stage 4 chronic kidney disease, or unspecified chronic kidney disease; N18.4 Chronic kidney disease, stage 4 (severe); E11.21 Type 2 diabetes mellitus with diabetic nephropathy; N25.81 Secondary hyperparathyroidism of renal origin; E78.5 Hyperlipidemia, unspecified; E55.9 Vitamin D deficiency, unspecified | CPT/HCPCS: 99212 ==

== ENCOUNTER 2024-10-14 13:49 | Outpatient (REF) | payer MEDICAID, SELFPAY ==
--- NOTE | ~2024-10-14 | XR_ITS ---
EXAMINATION: XR FOOT, RIGHT CLINICAL INFORMATION: 3-day duration of bilateral midfoot pain. Chronic edema. History of gout. COMPARISON: None available. TECHNIQUE: AP, lateral, and oblique views of the right foot. FINDINGS: No fracture, dislocation, or suspicious bone lesion. Normal bone mineralization. Normal alignment. Mild arthritic changes of the first MTP joint present with subtle marginal erosions suggesting gout. Normal plantar arch. There are small plantar and dorsal calcaneal spurs. No significant joint effusion. Soft tissues appear normal. XR/XR foot RT min 3V IMPRESSION: Mild changes of erosive arthropathy first MTP joint. Findings suggest gout. Electronically signed by: Go Chance MD 10/14/2024 02:24 PM EDT
--- NOTE | ~2024-10-14 | XR_ITS ---
EXAMINATION: XR FOOT, LEFT CLINICAL INFORMATION: 3-day duration of bilateral midfoot pain. Chronic edema. History of gout. COMPARISON: None available. TECHNIQUE: AP, lateral, and oblique views of the left foot. FINDINGS: No fracture, dislocation, or suspicious bone lesion. Normal bone mineralization. Normal alignment. Joint spaces are preserved. No significant arthropathy. No erosions evident. There are small plantar and dorsal calcaneal spurs. No significant joint effusion. Soft tissues appear normal. XR/XR foot LT min 3V IMPRESSION: No acute findings left foot. Electronically signed by: Go Chance MD 10/14/2024 02:22 PM EDT
--- OUTSIDE RECORDS SUMMARY | 2024-10-14 15:42 | XMS_ITS | Encounter Summary ---
Author Organization [facility] Address [address] [place] [address] Care Team Providers Care Primer Inspector Name Role Phone Deep Pruitt APRN Primary Care Provider [phone] Reason for Visit * Reason Comments Medication Refill Encounter Details Date Type Department Care Team ([facility] st Contact Info) Description 06/07/2022 Refill [facility] [address] [place], [place] [phone] Deep Pruitt APRN [address] [place] [address] Medication Refill Social History Tobacco [...] you attend chur ch or mormonism services? More than 4 times per year [...] Date Recorded PHQ-2 Total Score 2 02/17/2022 [facility] - [...] living situation today? I have a [facility] place to live 05/19/2022 Sex and [...] documented as of this encounter Care Teams Primer Inspector Relationship Specialty Start Date End Date Deep Pruitt APRN PCP - General 05/22/19 documented as of this encounter
== END 2024-10-14 13:50 | disposition home or self-care (01) ==
LOC: HO.HHCX 13:49
PROVIDERS: Visit Provider Family Medicine
DX: M79.671 Pain in right foot (principal); M79.672 Pain in left foot
CPT/HCPCS: 73630

== ENCOUNTER → 2024-10-14 13:52 | Outpatient (BNV) | payer MEDICAID, SELFPAY | PROVIDERS: Visit Provider Radiology Diagnostic Radiology | DX: M79.671 Pain in right foot (principal); M79.672 Pain in left foot | CPT/HCPCS: 73630 ==

== ENCOUNTER 2024-10-18 11:08 | Outpatient (REF) | payer MEDICAID, SELFPAY ==
--- OUTSIDE RECORDS SUMMARY | 2024-10-18 12:13 | XMS_ITS | Encounter Summary ---
Author Organization [facility] Address [address] [place] [address] Care Team Providers Care Electrical Lineman Name Role Phone Deep Pruitt APRN Primary Care Provider Reason for Visit * Reason Comments Medication Refill Encounter Details Date Type Department Care Team ([facility] st Contact Info) Description 06/07/2022 Refill [facility] [address] [place], [place] [phone] Deep Pruitt APRN [address] [place] [address] Medication Refill Social History Tobacco [...] you attend chur ch or orthodoxy services? More than 4 times per year [...] Recorded PHQ-2 Total Score 2 02/17/2022 [facility] [...] your living situation today? I have a [facility] place to live 05/19/2022 Sex and [...] as of this encounter Care Teams Electrical Lineman Relationship Specialty Start Date End Date Deep Pruitt APRN PCP - General 05/22/19 documented as of this encounter
[2024-10-18 13:02] LABS: MANUAL DIFF FLAG NO
[2024-10-18 13:17] LABS: Basophils Absolute Auto 0.1 X10*3/uL (0.0-0.2); Basophils Percent Auto 0.5 % (0-2); Eosinophils Absolute Auto 0.6 X10*3/uL (0.0-0.4); Hematocrit 44.8 % (42.0-52.0); Hemoglobin 14.1 g/dl (14.0-18.0); Imm Gran Pct Auto 0.8 % (0.0-0.4); Lymphocytes Absolute Auto 2.4 X10*3/uL (1.2-4.9); Lymphocytes Percent Auto 19.8 % (20-40); Mean Corpuscular HGB Conc 31.5 g/dl (31.0-36.0); Mean Corpuscular Hemoglobin 28.5 pg (27.0-33.0); Mean Corpuscular Volume 90.5 fL (80.0-98.0); Mean Platelet Volume 12.6 fL (9.4-12.4); Monocytes Absolute Auto 1.1 X10*3/uL (0.1-1.2); Neutrophils Absolute Auto 7.7 x10*3/uL (2.0-8.3); Neutrophils Percent Auto 64.9 % (45-73); Platelet Count 330 X10*3/uL (160-400); Red Blood Count 4.95 X10*6/uL (4.60-5.80); Red Cell Distribution Width 15.8 % (11.0-16.0); White Blood Count 11.9 X10*3/uL (4.8-10.8)
[2024-10-18 13:24] LABS: Anion Gap 12 (12-20); Blood Urea Nitrogen 66 mg/dL (9-16); Carbon Dioxide 23 mmol/L (22-29); Chloride 110 mmol/L (96-108); Estimated Glomerular Filt Rate 9; Potassium 4.4 mmol/L (3.3-5.1); Sodium 141 mmol/L (135-145)
== END 2024-10-18 11:09 | disposition home or self-care (01) ==
LOC: HO.HHCL 11:08
PROVIDERS: Visit Provider Internal Medicine Nephrology
DX: N18.4 Chronic kidney disease, stage 4 (severe) (principal)
CPT/HCPCS: 36415; 80051; 82565; 84520; 85025

== ENCOUNTER 2024-10-23 11:52 | Outpatient (AMB) | payer MEDICAID, SELFPAY ==
--- NOTE | 2024-10-23 11:56 | HO.NEPHOV_ITS ---
Vital Signs 10/23/24 11:57 Height 5 ft 9 in Weight 267 lb 2 oz BMI 39.4 BP 124/80 Blood Pressure Location Rt brachial Position Sitting Pulse 100 Pulse Source Pulse Oximeter Pulse Oximetry (%) 91 L Oxygen Delivery Method Room Air Intake Visit Reasons: 2 weeks fu-Conf Child Protection Specialist Required: Yes Child Protection Specialist Language: Supervisor Hardboard Services: Child Protection Specialist Present Child Protection Specialist Name: Devan [phone] Information Interpreted: clinical only Accompanied by: Spouse Allergies Penicillins (PENICILLINS) Allergy (Intermediate, Verified 10/23/24 11:57) RASH, DIFFICULTY BREATHING HPI Comments Details: Darrel is a 54 y/o male with a medical history of longstanding DMII, REGI, HTN, HLD, CVA with hemiparesis (reports in 2019), DM II, REGI, gout, GERD, rheumatoid arthritis and CKD 4 with progressive worsening renal function. patient has elevated urine protein/creatinine ratio of ~14 .renal ultrasound from 03/25 unremarkable- bilateral pelviectasis without trevor hydronephrosis. serum immunofixation with faint IgG kappa monoclonal band present. He denies any uremic symptoms but has been having worsening renal function [facility] Medical History (Updated 10/23/24 @ 12:07 by Grayson Rodriguez MD) HTN (hypertension) Leukocytosis Memory loss Obesity Idiopathic gout of multiple sites GERD (gastroesophageal reflux disease) Hypertensive chronic kidney disease Secondary hyperparathyroidism, renal Sleep apnea Type 2 diabetes mellitus Schizoaffective disorder Chronic pain syndrome Diabetic polyneuropathy Gout Surgical History History of esophagogastroduodenoscopy (EGD) H/O colonoscopy Family History Father Cancer Diabetes Mother Cancer Diabetes Colon cancer Family/Other Cancer Diabetes Social History Household Members: Spouse Housing: House Do you presently have visiting nurse or other home services: Yes Alcohol intake: never Patient Tobacco Use Status: Never used Tobacco service: No Review of Systems Const All systems reviewed & are unremarkable except as noted in HPI and below Physical Exam Vital Signs: Last Vital Signs Pulse 100 10/23/24 11:57 BP 124/80 10/23/24 11:57 Pulse Ox 91 L 10/23/24 11:57 Oxygen Delivery Method Room Air 10/23/24 11:57 BMI result Body Mass Index 39.4 Const General: comfortable and no acute distress Orientation/consciousness: patient oriented x3 HEENT Head: Yes normocephalic Mouth: Normal oral and palatal mucosa present Eyes EOM: EOMs intact bilaterally Neck Neck: Yes supple Resp Auscultation: clear to auscultation bilaterally Cardio Jugular venous distension: no JVD Rate: regular rate GI Palpation (GI): Soft to palpation Auscultation: normal bowel sounds General: Yes no CVA tenderness Back/Spine/Pelvis Back: no CVA tenderness Skin General skin exam: no rashes or lesions noted Neuro General: patient oriented x3 and moves all extremities Extrem General: Yes no pedal edema Results Reviewed Nephrology Results: Hgb, (14.0-18.0) 14.1 g/dl 10/18/24 WBC, (4.8-10.8) 11.9 X10*3/uL H 10/18/24 Plt Count, (160-400) 330 X10*3/uL Δ 10/18/24 Sodium, (135-145) 141 mmol/L 10/18/24 Potassium, (3.3-5.1) 4.4 mmol/L 10/18/24 Chloride, (96-108) 110 mmol/L H 10/18/24 Carbon Dioxide, (22-29) 23 mmol/L 10/18/24 BUN, (9-16) 66 mg/dL H 10/18/24 Creatinine, (0.5-1.4) 6.21 mg/dL H* 10/18/24 Calcium, (8.4-10.2) 8.7 mg/dL 10/07/24 Phosphorus, (2.7-4.5) 3.5 mg/dL 09/19/24 PTH Intact, (8.7-77.1) 683.9 pg/mL H 09/19/24 Urine Creatinine 42.21 mg/dL 10/07/24 Renal US 03/25/24 Assessment & Plan Assessment & Plan (1) HTN (hypertension): Code(s): I10 - Essential (primary) hypertension Category: Medical Qualifiers: Hypertension type: primary hypertension Qualified Code(s): I10 - Essential (primary) hypertension (2) Secondary hyperparathyroidism: Code(s): N25.81 - Secondary hyperparathyroidism of renal origin Category: Medical (3) CKD stage 5 due to type 2 diabetes mellitus: Code(s): E11.22 - Type 2 diabetes mellitus with diabetic chronic kidney disease; N18.5 - Chronic kidney disease, stage 5 Category: Medical Plan CKD due to diabetic nephropathy. Has a faint monoclonal band present on workup. He is on Jardiance and lasix. He will not tolerate CALEB/ARB for proteinuria with his current GFR and hyperkalemia. On Vitamin D. BP at home [place]. No NSAID's. Good hydration. Discussed about renal replacement. Had Home dialysis education. Referred for transplant evaluation. On K lowering medications .Answered all questions. F/U labs ordered. Orders: Orders Blood Urea Nitrogen 2 Weeks E11.22 - Type 2 diabetes mellitus with diabetic chronic kidney disease, N18.5 - Chronic kidney disease, stage 5 Electrolytes 2 Weeks E11.22 - Type 2 diabetes mellitus with diabetic chronic kidney disease, N18.5 - Chronic kidney disease, stage 5 Calcium 2 Weeks E11.22 - Type 2 diabetes mellitus with diabetic chronic kidney disease, N18.5 - Chronic kidney disease, stage 5 Creatinine 2 Weeks E11.22 - Type 2 diabetes mellitus with diabetic chronic kidney disease, N18.5 - Chronic kidney disease, stage 5 Referrals Vascular Surgery Referral E11.22 - Type 2 diabetes mellitus with diabetic chronic kidney disease, N18.5 - Chronic kidney disease, stage 5 Transplant Surgery Referral E11.22 - Type 2 diabetes mellitus with diabetic chronic kidney disease, N18.5 - Chronic kidney disease, stage 5 Medications: New calcitriol 0.25 mcg PO 3XW 14 caps 3RF Coding Level of Care Code Est Pt Level 4 (28023) Diagnoses Primary hypertension I10 Hypertension type: primary hypertension Secondary hyperparathyroidism N25.81 CKD stage 5 due to type 2 diabetes mellitus E11.22; N18.5
[2024-10-23 11:57] VITALS: BP 124/80; PULSE 100; O2SAT 91; BMI 39.4
--- OUTSIDE RECORDS SUMMARY | 2024-10-23 13:52 | XMS_ITS | Encounter Summary ---
Author Organization [facility] Address [address] [place] [address] Care Team Providers Care Oven Heater Name Role Phone Deep Pruitt APRN Primary Care Provider Reason for Visit * Reason Comments Medication Refill Encounter Details Date Type Department Care Team ([facility] st Contact Info) Description 06/07/2022 Refill [facility] [address] [place], [place] [phone] Deep Pruitt APRN [address] [place] [address] Medication Refill Social History Tobacco [...] attend chur ch or jehovah's witness services? More than 4 times per year [...] living situation today? I have a [facility] place to live 05/19/2022 Sex and [...] as of this encounter Care Teams Oven Heater Relationship Specialty Start Date End Date Deep Pruitt APRN PCP - General 05/22/19 documented as of this encounter
== END 2024-10-23 12:26 | disposition home or self-care (01) ==
LOC: HO.HKA 11:53
PROVIDERS: PCP Student in an Organized Health Care Education/Training Program; Visit Provider Internal Medicine Nephrology
DX: I12.0 Hypertensive chronic kidney disease with stage 5 chronic kidney disease or end stage renal disease (principal); N25.81 Secondary hyperparathyroidism of renal origin; E11.22 Type 2 diabetes mellitus with diabetic chronic kidney disease; N18.5 Chronic kidney disease, stage 5
CPT/HCPCS: 99214

== ENCOUNTER → 2024-10-23 11:52 | Outpatient (BNVA) | payer MEDICAID, SELFPAY | PROVIDERS: PCP Student in an Organized Health Care Education/Training Program; Visit Provider Internal Medicine Nephrology | DX: E11.22 Type 2 diabetes mellitus with diabetic chronic kidney disease (principal); I12.0 Hypertensive chronic kidney disease with stage 5 chronic kidney disease or end stage renal disease; N18.5 Chronic kidney disease, stage 5; N25.81 Secondary hyperparathyroidism of renal origin; Z79.84 Long term (current) use of oral hypoglycemic drugs | CPT/HCPCS: 99212 ==

== ENCOUNTER 2024-11-01 16:36 | Outpatient (REF) | payer MEDICAID, SELFPAY ==
--- OUTSIDE RECORDS SUMMARY | 2024-11-01 16:39 | XMS_ITS | Encounter Summary ---
Author Organization [facility] Address [address] [place] [address] Care Team Providers Care Casting Finisher Name Role Phone Deep Pruitt APRN Primary Care Provider Reason for Visit * Reason Comments Medication Refill Encounter Details Date Type Department Care Team ([facility] st Contact Info) Description 06/07/2022 Refill [facility] [address] [place], [place] [phone] Deep Pruitt APRN [address] [place] [address] Medication Refill Social History Tobacco [...] Date Recorded PHQ-2 Total Score 2 02/17/2022 [facility] [...] your living situation today? I have a [facility] place to live 05/19/2022 Sex and [...] documented as of this encounter Care Teams Casting Finisher Relationship Specialty Start Date End Date Deep Pruitt APRN PCP - General 05/22/19 documented as of this encounter
[2024-11-01 17:03] LABS: Appearance Urine Clear; Color Urine Yellow; Glucose Urine UA >=1000 mg/dL (Negative); Leukocyte Esterase Urine Negative (Negative); Nitrite Urine Negative (Negative); PH 6.5 (5.0-9.0); Specific Gravity - Urine 1.015 (1.005-1.025); UMIC TRIGGER UACC YES; Urine Blood Moderate (2+) (Negative); Urine Ketones Negative (Negative); Urine Protein >=1000 (4+) mg/dL (Neg-Trace)
[2024-11-01 17:10] LABS: Bacteria Urine None Seen (None Seen); Hyaline Casts Urine 0-2 /LPF (0-2); Squamous Epithelial Cell Urine 0-2 /HPF (0-2); WBC Urine 0-5 /HPF (0-5)
== END 2024-11-01 16:37 | disposition home or self-care (01) ==
LOC: HO.HHCLNP 16:36
PROVIDERS: Visit Provider Student in an Organized Health Care Education/Training Program
DX: R30.0 Dysuria (principal)
CPT/HCPCS: 81001; 81003

== ENCOUNTER 2024-11-12 13:43 | Outpatient (REF) | payer MEDICAID, SELFPAY ==
--- OUTSIDE RECORDS SUMMARY | 2024-11-12 14:31 | XMS_ITS | Clinical Summary ---
Author Organization [address] [facility] Address [address] [place] [address] Phone Care Team Providers Care Keg Inspector Name Role Phone Physician, No Pcp Primary [...] 3 days. 6 each 04/08/20 24 Active Immunizations Name Administration Dates Next Due Moderna SARS-CoV-2 COVID-19, mRNA, LNP-S, preservative free 08/28/2020,07/28/2020 Pfizer SARS-CoV-2 COVID-19, mRNA, LNP-S, preservative free 04/14/2021 Medical History Medical History Date Comments Diabetes mellitus ([facility] V24, [facility] V28) Hypertension REGI (obstructive sleep [...] 90 04/08/2024 1:20 PM EST Temperature 36.8 C (98.2 F) 04/08/2024 1:20 PM EST Respiratory Rate 22 04/08/2024 1:20 PM EST [...] Urine Albumin-Creatinine Ratio (uACR) 05/19/2024 05/19/2023, 02/15/2022 Depression Screening 10/30/2024 10/31/2023 Influenza Vaccine (#1) 2025 , 01/23/2023, 03/24/2022, Additional history exists Diabetes: Blood Sugar Control Test (HGBA1C) 02/21/2025 08/22/2024, 03/27/2024, 02/01/2024, Additional history exists Diabetes: Annual GFR (Glomerular Filtration Rate) 10/07/2025 10/07/2024, 09/19/2024, 04/03/2024, Additional history exists Hypertension/CHF/CAD Annual BMP Blood Test 10/07/2025 10/07/2024, 09/19/2024, 04/03/2024, Additional history exists Cholesterol Screening (Lipid Panel) 10/07/2029 10/07/2024, 09/19/2023, 09/19/2023, Additional history exists DTaP,Tdap,and Td Vaccines (3 - Td or Tdap) 03/24/2032 03/24/2022, 10/05/2016 Hepatitis B Vaccines Completed 04/05/2017, 10/05/2016, 08/17/2016 COVID-19 Vaccine Completed 02/01/2024, 12/2020, 08/28/2020, Additional history exists HIV Screening Completed 10/07/2024, 12/06/2022 Hepatitis C Screening Completed 10/07/2024 , 12/06/2022, 02/06/2020 HIB Vaccines Aged Out No longer eligi [...] Results * Annual BMP Blood Test (11/07/2023) Annual BMP Blood Test Abstracted Result [facility] Provider HEALTH MAINTENANCE Final Result * Lipid panel (09/19/2023) Pathologist [facility] Triglycerides 0 mg/dL Comment:No interpretation Cholesterol 0 mg/dL Comment:No interpretation HDL 0 mg/dL Comment:No interpretation LDL Cholesterol 0 mg/dL Comment:No interpretation Blood Venous blood specimen / Unknown Result [facility] Provider LAB BLOOD ORDERABLES Fauzia l Result * Urine Albumin Creatinine Ratio (05/19/2023) Pathologist [facility] Urine Albumin Creatinine Ratio Abstracted Result [facility] Provider HEALTH MAINTENANCE Final Result * Hemoglobin A1c (05/17/2023) Pathologist [facility] Hemoglobin A1C 0.0 % Comment:No interpretation Blood Venous blood specimen / Unknown us Historical Provider LAB BLOOD ORDERABLES Fauzia l Result * HIV Screening (12/06/2022) HIV Screening Abstracted Historical Provider HEALTH MAINTENANCE Final Result * Hepatitis C Screening (12/06/2022) Hepatitis C Screening Abstracted Historical Provider HEALTH MAINTENANCE Final Result from Last 3 Months or Most Recently Relevant to Health Maintenance [place] Care Teams Keg Inspector Relationship Specialty Start Date End Date Physician, No Pcp PCP - General 04/08/24
--- OUTSIDE RECORDS SUMMARY | 2024-11-12 14:31 | XMS_ITS | Clinical Summary ---
Author Organization [facility] Address [address] [place] [address] Phone Care Team Providers Care Undergraduate Advisor Name Role Phone Katrin Brumfield Primary Care [...] 4 12/04/19 25 Active ergocalciferol 1.25 MG (12432 UT) capsule Take 1 capsule (50,000 Units [...] (01/25/2023): information and pathology of colonospcy in [facility] 09-09-2020 note Asthma 01/06/2023 01/25/2023 Arthritis 01/06/2023 [...] AM with Arben Fountain DPM at the [facility] -Will f/u with Pt in a [...] 3rd Gen. Latest Ref Range: See Comment IU/mL 3.640 Lymphadenopathy 04/09/2021 01/25/2023 01/25/2023 Overview (01/25/2023): [...] MRI of Brain from 2017 under [facility] -Significant deficits on neurologic exam Memory loss and Left handed weakness -Imaging and prior evaluation -Current blood thinning agents is aspirin -Potential details to include, when relevant: poor GAIT, uses a walker to get around -How the diagnosis was made: Pt lived in [facility] at the time, Under [facility] in [place] see specific file at specific date [id number].TIF Image MRI Result [facility] - MRI BRAIN CVA -09/25/2016 [id number] Image Evaluation [facility]- Left handed weakness note - 02/20/2017 CT head or MRI brain 05/15/2020 MRI BRAIN W 3D VOLUMETRIC ANALYSIS WO IV CONTRAST (YH) CLINICAL INDICATION: Memory Loss also h/o self reported strokes. -TECHNIQUE: Multiplanar and multisequence MRI of the brain without the administration of intravenous contrast. 3-D volumetric analysis was performed on the sagittal T1 MPRAGE images, using NeuroQuant software on an independent workstation. -COMPARISON: No priors available for comparison. -FINDINGS: There is no acute ischemic infarct, acute intracranial hemorrhage, or mass effect. There is a FLAIR hyperintense focus in the right centrum semiovale. A few other nonspecific FLAIR hyperintense foci are visualized in the periventricular, pontine and juxtacortical white matter. These foci may be related to chronic small vessel ischemic disease, chronic migraines, amongst others. The basilar cisterns are patent. The posterior fossa structures are within normal limits. The midline structures including the corpus callosum, pituitary gland, and craniocervical junction are within normal limits. The paranasal sinuses and mastoid air cells are well aerated. The orbits are within normal limits. No calvarial abnormality is identified. Volumetric analysis results: Right hippocampal volume: 4 3 mL. Left hippocampal [...] the Pt needs to call the [facility] [address] [place], [place] [phone] Diabetic foot 02/07/2019 01/25/2023 01/25/2023 Overview (01/25/2023): Last Assessment & Plan: The Pt continues to deal with bilateral foot pain and wears a pair of Diabetic shoes with specification ordered by his Creative Perfumer Doctor Patient encounter status 02/07/2019 01/25/2023 Overview [...] -Pt will be called biweekly by the [facility] Nurse to review his FBS finger [...] and dropping their A1C to below 8 dulaglutide (TRULICITY) 4.5 mg/0.5 mL PnIj Inject 0.5 mLs (4.5 mg total) under the skin every 7 days. 2 mL 11 empagliflozin (JARDIANCE) 25 mg tablet Take 1 tablet (25 mg total) by mouth daily. 30 tablet 11 insulin aspart (NOVOLOG) 100 unit/mL (3 mL) pen Inject 35 units before meals plus sliding scale. Max daily dose 141 units/day 45 mL 5 metFORMIN (GLUCOPHAGE) 1000 mg tablet Take 1 [...] medications -He has been following with the [place] [facility] team and reports taking all of [...] decided to move his family back to [place] area due to being closer to family [...] PCV) 03/24/2023 03/24/2022, 01/21/2021 Diabetes: Hemoglobin A1C 06/27/20242 024, 09/19/2023, 09/08/2023, Additional history exists Influenza Vaccine (#1) 2025 4, 01/23/2023, 03/24/2022, Additional history exists Colorectal Cancer Screening: Colonoscopy 01/25/2033 01/25/2023 Pneumococcal Vaccine: Peds ( 0 to 5 Years) and At-Risk Patients (6 to 49 Years) Discontinued 03/24/2022, 01/21/2021 [place] Care Teams Undergraduate Advisor Relationship Specialty Start Date End Date Katrin Brumfield [address] [place] [address] PCP - General 04/17/23
--- OUTSIDE RECORDS SUMMARY | 2024-11-12 14:31 | XMS_ITS | Encounter Summary ---
Author Organization [employer] Address [address] [facility] [address] [place] [address] Care Team Providers Care Kitchen Help Handyman Name Role Phone Katrin Santoyo MD Primary Care Pro vider Edison Vieira MD Unavailable [phone] Joe Devi MD Unavailable [phone] Chuy Mcmanus MD Unavailable [phone] Encounter Details Date Type Department Care Team (Late st Contact Info) Description 09/19/2024 Results Follow-Up [facility] [address] [place] [address] Katrin Santoyo MD [address] [place] [address] PTH, Intact Without Calcium Social History Tobacco [...] is your housing situation today? I have madleynmamadou schmitz 02/21/[address] [...] prescriber Also please can you inform his printed circuit board assembler that bariatric surgeon started him on tirzepatide [...] Care Team (Late st Contact Info) Description 12/10/2024 1:00 PM EDT Medication Management [facility] [address] [place] [address] Rogelio Cuadra, PharmD [address] [place] [address] 01/07/2025 2:15 PM EDT Office Visit [facility] [address] [place] [address] [place] [address] Katrin Santoyo MD [address] [place] [address] documented as of this encounter Goals Goal Patient Goal Type Associated Problems Recent Progress Patient-Stated? Author Blood Pressure < 140/90 Blood Pressure 130/90(2024 1:23 PM EDT) No Piers-Gambl e, Eve, PharmD Hemoglobin A1c < 7 Result Component 9(11/01/2024 1:35 PM EDT) No Piers-Gambl e, Eve, PharmD documented as of this encounter Visit Diagnoses Not on filedocumented in this encounter Additional Health Concerns Assessment Noted Time PHQ-9 Depression Total Score: 4 10/31/19 24 10:32 AM EDT documented as of this encounter Care Teams Kitchen Help Handyman Relationship Specialty Start Date End Date Katrin Santoyo MD [address] [place] [address] PCP - General Internal Medicine 12/13/22 Edison Vieira MD [address] [place] [address] Pulmonary Disease 04/07/24 Joe Devi MD [address] [place] [address] [address] [place] [address] Gastroenterology 04/07/24 Chuy Mcmanus MD [address] [place] [address] [place] [address] Bariatrics 09/25/24 Carito Roche DNP [address] [facility], [address] [place] [address] Nephrology 04/07/24 [employer] 04/11/24 documented as of this encounter
--- OUTSIDE RECORDS SUMMARY | 2024-11-12 14:31 | XMS_ITS | Encounter Summary ---
Author Organization [facility] Address [address] [place] [address] Care Team Providers Care Casting House Laborer Name Role Phone Deep Pruitt APRN Primary Care Provider Reason for Visit * Reason Comments Medication Refill Encounter Details Date Type Department Care Team ([facility] st Contact Info) Description 06/07/2022 Refill [facility] [address] [place], [place] [phone] Deep Pruitt APRN [address] [place] [address] Medication Refill Social History Tobacco [...] Total Score 2 02/17/2022 [facility] [...] as of this encounter Care Teams Casting House Laborer Relationship Specialty Start Date End Date Deep Pruitt APRN PCP - General 05/22/19 documented as of this encounter
[2024-11-12 17:24] LABS: Appearance Urine Cloudy; Glucose Urine UA >=1000 mg/dL (Negative); PH 6.0 (5.0-9.0); Specific Gravity - Urine 1.025 (1.005-1.025); UMIC TRIGGER UACC YES
[2024-11-12 17:56] LABS: Anion Gap 14 (12-20); Blood Urea Nitrogen 68 mg/dL (9-16); Calcium 8.2 mg/dL (8.4-10.2); Carbon Dioxide 19 mmol/L (22-29); Chloride 112 mmol/L (96-108); Potassium 4.4 mmol/L (3.3-5.1); Sodium 141 mmol/L (135-145)
[2024-11-12 17:58] LABS: Estimated Glomerular Filt Rate 8
== END 2024-11-12 13:44 | disposition home or self-care (01) ==
LOC: HO.HHCL 13:43
PROVIDERS: PCP Student in an Organized Health Care Education/Training Program; Visit Provider Internal Medicine Nephrology
DX: E11.22 Type 2 diabetes mellitus with diabetic chronic kidney disease (principal); N18.5 Chronic kidney disease, stage 5; E11.21 Type 2 diabetes mellitus with diabetic nephropathy; R30.0 Dysuria
CPT/HCPCS: 36415; 80051; 81001; 82310; 82565; 84520

== ENCOUNTER 2024-11-13 11:07 | Outpatient (AMB) | payer MEDICAID, SELFPAY ==
[2024-11-13 11:17] VITALS: BP 140/82; PULSE 88; O2SAT 96; BMI 40.3
--- NOTE | 2024-11-13 11:17 | HO.NEPHOV ---
Vital Signs 11/13/24 11:17 Height 5 ft 9 in Weight 273 lb BMI 40.3 BP 140/82 H Blood Pressure Location Rt brachial Position Sitting Pulse 88 Pulse Source Pulse Oximeter Pulse Oximetry (%) 96 Oxygen Delivery Method Room Air Intake Visit Reasons: FU-Conf Office Communication Professor Required: Yes Office Communication Professor Name: Juvenal Accompanied by: Spouse Allergies Penicillins (PENICILLINS) Allergy (Intermediate, Verified 11/13/24 11:19) RASH, DIFFICULTY BREATHING HPI Comments Details: Darrel is a 54 y/o male with a medical history of longstanding DMII, REGI, HTN, HLD, CVA with hemiparesis (reports in 2019), DM II, REGI, gout, GERD, rheumatoid arthritis and CKD 4 with progressive worsening renal function. patient has elevated urine protein/creatinine ratio of ~14 .renal ultrasound from 03/25 unremarkable- bilateral pelviectasis without trevor hydronephrosis. serum immunofixation with faint IgG kappa monoclonal band present. He denies any uremic symptoms but has been having worsening renal function [facility] Medical History (Updated 10/23/24 @ 12:07 by Grayson Rodriguez MD) HTN (hypertension) Leukocytosis Memory loss Obesity Idiopathic gout of multiple sites GERD (gastroesophageal reflux disease) Hypertensive chronic kidney disease Secondary hyperparathyroidism, renal Sleep apnea Type 2 diabetes mellitus Schizoaffective disorder Chronic pain syndrome Diabetic polyneuropathy Gout Surgical History History of esophagogastroduodenoscopy (EGD) H/O colonoscopy Family History Father Cancer Diabetes Mother Cancer Diabetes Colon cancer Family/Other Cancer Diabetes Social History Household Members: Spouse Housing: House Do you presently have visiting nurse or other home services: Yes Alcohol intake: never Patient Tobacco Use Status: Never used Tobacco service: No Review of Systems Const All systems reviewed & are unremarkable except as noted in HPI and below Physical Exam Vital Signs: Last Vital Signs Pulse 88 11/13/24 11:17 BP 140/82 H 11/13/24 11:17 Pulse Ox 96 11/13/24 11:17 Oxygen Delivery Method Room Air 11/13/24 11:17 BMI result Body Mass Index 40.3 Const General: comfortable and no acute distress Orientation/consciousness: patient oriented x3 HEENT Head: Yes normocephalic Mouth: Normal oral and palatal mucosa present Eyes EOM: EOMs intact bilaterally Neck Neck: Yes supple Resp Auscultation: clear to auscultation bilaterally Cardio Jugular venous distension: no JVD Rate: regular rate GI Palpation (GI): Soft to palpation Auscultation: normal bowel sounds General: Yes no CVA tenderness Back/Spine/Pelvis Back: no CVA tenderness Skin General skin exam: no rashes or lesions noted Neuro General: patient oriented x3 and moves all extremities Extrem General: Yes no pedal edema Results Reviewed Nephrology Results: Hgb, (14.0-18.0) 14.1 g/dl 10/18/24 WBC, (4.8-10.8) 11.9 X10*3/uL H 10/18/24 Plt Count, (160-400) 330 X10*3/uL Δ 10/18/24 Sodium, (135-145) 141 mmol/L 11/12/24 Potassium, (3.3-5.1) 4.4 mmol/L 11/12/24 Chloride, (96-108) 112 mmol/L H 11/12/24 Carbon Dioxide, (22-29) 19 mmol/L L 11/12/24 BUN, (9-16) 68 mg/dL H 11/12/24 Creatinine, (0.5-1.4) 7.18 mg/dL H* 11/12/24 Calcium, (8.4-10.2) 8.2 mg/dL L 11/12/24 Urine Protein, (Neg-Trace) >=1000 (4+) mg/dL H 11/12/24 Urine Creatinine 42.21 mg/dL 10/07/24 Renal US 03/25/24 Assessment & Plan Assessment & Plan (1) HTN (hypertension): Code(s): I10 - Essential (primary) hypertension Category: Medical Qualifiers: Hypertension type: primary hypertension Qualified Code(s): I10 - Essential (primary) hypertension (2) Secondary hyperparathyroidism: Code(s): N25.81 - Secondary hyperparathyroidism of renal origin Category: Medical (3) CKD stage 5 due to type 2 diabetes mellitus: Code(s): E11.22 - Type 2 diabetes mellitus with diabetic chronic kidney disease; N18.5 - Chronic kidney disease, stage 5 Category: Medical (4) Diabetic nephropathy associated with type 2 diabetes mellitus: Code(s): E11.21 - Type 2 diabetes mellitus with diabetic nephropathy Category: Medical Plan CKD due to diabetic nephropathy. Has a faint monoclonal band present on workup. He is on Jardiance and lasix. He will not tolerate CALEB/ARB for proteinuria with his current GFR and hyperkalemia. On Vitamin D. BP at home OK. No NSAID's. Good hydration. Discussed about renal replacement. Referred for AVF. Had Home dialysis education. Referred for transplant evaluation. On K lowering medications .Answered all questions. F/U labs ordered. Orders: Orders Blood Urea Nitrogen 3 Weeks E11.22 - Type 2 diabetes mellitus with diabetic chronic kidney disease, N18.5 - Chronic kidney disease, stage 5 Electrolytes 3 Weeks E11.22 - Type 2 diabetes mellitus with diabetic chronic kidney disease, N18.5 - Chronic kidney disease, stage 5 Creatinine 3 Weeks E11.22 - Type 2 diabetes mellitus with diabetic chronic kidney disease, N18.5 - Chronic kidney disease, stage 5 Referrals Vascular Surgery Referral E11.22 - Type 2 diabetes mellitus with diabetic chronic kidney disease, N18.5 - Chronic kidney disease, stage 5 Coding Level of Care Code Est Pt Level 4 (77055) Diagnoses Primary hypertension I10 Hypertension type: primary hypertension Secondary hyperparathyroidism N25.81 CKD stage 5 due to type 2 diabetes mellitus E11.22; N18.5 Diabetic nephropathy associated with type 2 diabetes mellitus E11.
--- OUTSIDE RECORDS SUMMARY | 2024-11-13 12:21 | XMS_ITS | Encounter Summary ---
Author Organization [employer] Address [address] [facility] 7t [place] [address] Care Team Providers Care Precision Printing Worker Name Role Phone Katrin Santoyo MD Primary Care Pro vider Edison Vieira MD Unavailable [phone] Joe Devi MD Unavailable [phone] Chuy Mcmanus MD Unavailable Encounter Details Date Type Department Care Team (Late st Contact Info) Description 09/19/2024 Results Follow-Up [facility] [address] [place] [address] Katrin Santoyo MD [address] [place] [address] PTH, Intact Without Calcium Social History Tobacco [...] prescriber Also please can you inform his authorization rep that bariatric surgeon started him on tirzepatide [...] Description 12/10/2024 1:00 PM EDT Medication Management [facility] [address] [place] [address] Rogelio Cuadra, PharmD [address] [place] [address] 01/07/2025 2:15 PM EDT Office Visit [facility] [address] [place] [address] [place] [address] Katrin Santoyo MD [address] [place] [address] documented as of this encounter Goals Goal [...] as of this encounter Care Teams Precision Printing Worker Relationship Specialty Start Date End Date Katrin Santoyo MD [address] [place] [address] PCP - General Internal Medicine 12/13/22 Edison Vieira MD 5 [place] [address] Pulmonary Disease 04/07/24 Joe Devi MD [address] [place] [address] 3rd [place] [address] Gastroenterology 04/07/24 Chuy Mcmanus MD [address] [place] [address] [place] [address] Bariatrics 09/25/24 Carito Roche DNP [address] [facility], [address] [place] [address] Nephrology 04/07/24 Guidefitter 04/11/24 documented as of this encounter
--- OUTSIDE RECORDS SUMMARY | 2024-11-13 12:21 | XMS_ITS | Clinical Summary ---
Author Organization 175 [facility] Address [address] [place] [address] Phone Care Team Providers Care Manager Landscape Name Role Phone Physician, No Pcp Primary [...] History Medical History Date Comments Diabetes mellitus ([facility] V24, [facility] V28) Hypertension REGI (obstructive sleep apnea) Social [...] (11/07/2023) Annual BMP Blood Test Abstracted Result [facility] Provider HEALTH MAINTENANCE Final Result * Lipid panel (09/19/2023) Pathologist [facility] Triglycerides 0 mg/dL Comment:No interpretation Cholesterol 0 mg/dL Comment:No interpretation HDL 0 mg/dL Comment:No interpretation LDL Cholesterol 0 mg/dL Comment:No interpretation Blood Venous blood specimen / Unknown Result [facility] Provider LAB BLOOD ORDERABLES Fauzia l Result * Urine Albumin Creatinine Ratio (05/19/2023) Pathologist [facility] Urine Albumin Creatinine Ratio Abstracted Result [facility] Provider HEALTH MAINTENANCE Final Result * Hemoglobin A1c (05/17/2023) Pathologist [facility] Hemoglobin A1C 0.0 % Comment:No interpretation Blood [...] to Health Maintenance [place] Care Teams Manager Landscape Relationship Specialty Start Date End Date Physician, No Pcp PCP - General 04/08/24
--- OUTSIDE RECORDS SUMMARY | 2024-11-13 12:21 | XMS_ITS | Clinical Summary ---
Author Organization [facility] Address [address] [facility] [address] [place] [address] Phone Care Team Providers Care Project Controller Name Role Phone Katrin Brumfield Primary Care [...] 4 12/04/19 25 Active ergocalciferol 1.25 MG (32857 UT) capsule Take 1 capsule (50,000 Units [...] (01/25/2023): information and pathology of colonospcy in [facility] 09-09-2020 note Asthma 01/06/2023 01/25/2023 Arthritis [...] AM with Arben Fountain DPM at the [facility] -Will f/u with Pt in a [...] (see MRI of Brain from 2017 under [facility] Multimedia -Significant deficits on neurologic exam Memory loss and Left handed weakness -Imaging and prior evaluation -Current blood thinning agents is aspirin -Potential details to include, when relevant: poor GAIT, uses a walker to get around -How the diagnosis was made: Pt lived in [facility] at the time, Under Multimedia in [facility] see specific file at specific date [id number].TIF Image MRI Result [facility] - MRI BRAIN CVA -09/25/2016 [id number] Image Evaluation [facility]- Left handed weakness note - 02/20/2017 [...] 2019, the Pt needs to call the [facility] [address] [place], [place] [id number] Diabetic foot 02/07/2019 01/25/2023 01/25/2023 Overview (01/25/2023): Last Assessment & Plan: The Pt continues to deal with bilateral foot pain and wears a pair of Diabetic shoes with specification ordered by his Parole Supervisor Doctor Patient encounter status 02/07/2019 01/25/2023 Overview [...] -Pt will be called biweekly by the [facility] Nurse to review his FBS [...] decided to move his family back to [place] area due to being closer to family [...] 49 Years) Discontinued 03/24/2022, 01/21/2021 [place] Medicaid [place] Care Teams Project Controller Relationship Specialty Start Date End Date Katrin Brumfield [address] [place] [address] PCP - General 04/17/23
== END 2024-11-13 11:36 | disposition home or self-care (01) ==
LOC: HO.HKA 11:08
PROVIDERS: Visit Provider Internal Medicine Nephrology
DX: I12.0 Hypertensive chronic kidney disease with stage 5 chronic kidney disease or end stage renal disease (principal); N25.81 Secondary hyperparathyroidism of renal origin; E11.22 Type 2 diabetes mellitus with diabetic chronic kidney disease; N18.5 Chronic kidney disease, stage 5; E11.21 Type 2 diabetes mellitus with diabetic nephropathy
CPT/HCPCS: 99214

== ENCOUNTER → 2024-11-13 11:07 | Outpatient (BNVA) | payer MEDICAID, SELFPAY | PROVIDERS: Visit Provider Internal Medicine Nephrology | DX: E11.21 Type 2 diabetes mellitus with diabetic nephropathy (principal); G47.33 Obstructive sleep apnea (adult) (pediatric); I10 Essential (primary) hypertension; E78.5 Hyperlipidemia, unspecified; K21.9 Gastro-esophageal reflux disease without esophagitis; M10.9 Gout, unspecified; M05.9 Rheumatoid arthritis with rheumatoid factor, unspecified; N25.81 Secondary hyperparathyroidism of renal origin; E11.22 Type 2 diabetes mellitus with diabetic chronic kidney disease; N18.5 Chronic kidney disease, stage 5 | CPT/HCPCS: 99212 ==

== ENCOUNTER 2024-11-25 09:46 | Outpatient (REF) | payer MEDICAID, SELFPAY ==
--- NOTE | ~2024-11-25 | US_ITS ---
EXAMINATION: US TRIPLEX LOWER EXTREMITY, BILATERAL CLINICAL INFORMATION: Lower extremity edema bilaterally. COMPARISON: None available. TECHNIQUE: Color-flow triplex imaging with spectral analysis and compression Doppler were performed on the bilateral lower extremities. FINDINGS: As per technologist note, limited exam due to patient body habitus. Respiratory variation, normal compression and augmented flow are noted throughout the bilateral lower extremities. The visualized common femoral vein, superficial femoral vein, profunda femoral vein, popliteal vein and midcalf posterior tibial venous segments show no evidence of deep venous thrombosis bilaterally. The bilateral peroneal veins were not well seen, likely due to body habitus. There is no Conway's cyst. US/US venous duplex LE BI IMPRESSION: No evidence of deep venous thrombosis involving the bilateral lower extremities. Electronically signed by: Go Chance MD 11/25/2024 10:32 AM EDT
--- OUTSIDE RECORDS SUMMARY | 2024-11-25 10:23 | XMS_ITS | Clinical Summary ---
Author Organization 175 [facility] Address [address] [place] [address] Phone Care Team Providers Care Superintendent Terminal Name Role Phone Physician, No Pcp Primary [...] History Medical History Date Comments Diabetes mellitus ([facility] V24, [facility] V28) Hypertension REGI (obstructive sleep apnea) [...] 04/08/2024 4:24 PM EST Plan of Treatment Upcoming Encounters Date Type Department Care Team (Late st Contact Info) Description 01/09/2025 2:00 PM EDT Office Visit Orthopedic Surgery - [place] [address] [place] [phone] Jan Amor, DPChristina [address] [address] Health Maintenance Due Date Last Done Comments Diabetes: Annual Foot Exam 1980 Diabetes: Annual Retina Eye Exam 1980 Hepatitis A Vaccines (1 of 2 - Risk 2-dose series) 1989 Zoster Vaccines (1 of 2) 2020 Pneumococcal Vaccine: 50+ Years (2 of 2 - PCV) 01/21/2022 01/21/2021 Colorectal Cancer Screening: Colonoscopy 06/02/2023 Social Influencers of Health Screening 06/02/2023 Depression Screening 05/08/2024 Diabetes: Annual Urine Albumin-Creatinine Ratio (uACR) 05/19/2024 05/19/2023, 02/15/2022 Influenza Vaccine (#1) 2025 , 01/23/2023, 03/24/2022, [...] * Annual BMP Blood Test (11/07/2023) Pathologist [facility] Annual BMP Blood Test Abstracted Historical Provider HEALTH MAINTENANCE Final Result * Lipid panel (09/19/2023) Triglycerides 0 mg/dL Comment:No interpretation Cholesterol 0 mg/dL Comment:No interpretation HDL 0 mg/dL Comment:No interpretation LDL Cholesterol 0 mg/dL Comment:No interpretation Blood Venous blood specimen / Unknown Historical Provider LAB BLOOD ORDERABLES Fauzia l Result * Urine Albumin Creatinine Ratio (05/19/2023) [facility] Urine Albumin Creatinine Ratio Abstracted [facility] Provider HEALTH MAINTENANCE Final Result * Hemoglobin A1c (05/17/2023) [facility] Hemoglobin A1C 0.0 % Comment:No interpretation Blood Venous blood specimen / Unknown [facility] Provider LAB BLOOD ORDERABLES Fauzia l Result * HIV Screening (12/06/2022) [facility] HIV Screening Abstracted Result [facility] Provider HEALTH MAINTENANCE Final Result * Hepatitis C Screening (12/06/2022) [facility] Hepatitis C Screening Abstracted [facility] Provider HEALTH MAINTENANCE Final Result from Last 3 Months or Most Recently Relevant to Health Maintenance [place] Care Teams Superintendent Terminal Relationship Specialty Start Date End Date Physician, No Pcp PCP - General 04/08/24
--- OUTSIDE RECORDS SUMMARY | 2024-11-25 10:23 | XMS_ITS | Clinical Summary ---
Author Organization [facility] Address [address] [place] [address] Phone Care Team Providers Care Fender Mechanic Apprentice Name Role Phone Katrin Brumfield Primary Care [...] 4 12/04/19 25 Active ergocalciferol 1.25 MG (63025 UT) capsule Take 1 capsule (50,000 Units [...] (01/25/2023): information and pathology of colonospcy in [place] 09-09-2020 note Asthma 01/06/2023 01/25/2023 Arthritis 01/06/2023 [...] with Arben Fountain DPM at the [facility] -Will f/u with Pt in [...] (see MRI of Brain from 2017 under [facility] Multimedia -Significant deficits on neurologic exam Memory loss and Left handed weakness -Imaging and prior evaluation -Current blood thinning agents is aspirin -Potential details to include, when relevant: poor GAIT, uses a walker to get around -How the diagnosis was made: Pt lived in [facility] at the time, Under Multimedia in [facility] see specific file at specific date [id number].TIF Image MRI Result [facility] - MRI BRAIN CVA -09/25/2016 [id number] Image Evaluation [facility]- Left handed weakness note - 02/20/2017 [...] 2019, the Pt needs to call the [facility]ERY [address] [place], [place] [phone] Diabetic foot 02/07/2019 01/25/2023 01/25/2023 Overview (01/25/2023): Last Assessment & Plan: The Pt continues to deal with bilateral foot pain and wears a pair of Diabetic shoes with specification ordered by his Animal Damage Control Agent Doctor Patient encounter status 02/07/2019 01/25/2023 Overview [...] -Pt will be called biweekly by the [facility] Nurse to review his FBS finger [...] medications -He has been following with the [place] [facility] team and reports taking all of [...] decided to move his family back to [place] area due to being closer to family [...] 49 Years) Discontinued 03/24/2022, 01/21/2021 Insurance Medicaid [place] Care Teams Fender Mechanic Apprentice Relationship Specialty Start Date End Date Katrin Brumfield [address] [place] [address] PCP - General 04/17/23
--- OUTSIDE RECORDS SUMMARY | 2024-11-25 10:23 | XMS_ITS | Encounter Summary ---
Author Organization [facility] Address [address] [place] [address] Care Team Providers Care Recreation Superintendent Name Role Phone Deep Pruitt APRN Primary Care Provider Reason for Visit * Reason Comments Medication Refill Encounter Details Date Type Department Care Team ([facility] st Contact Info) Description 06/07/2022 Refill [facility] [address] [place], [place] [phone] Deep Pruitt APRN [address] [place] [address] [...] you attend chur ch or spiritism services? More than 4 times per year [...] Date Recorded PHQ-2 Total Score 2 02/17/2022 [facility] [...] your living situation today? I have a [facility] place to live 05/19/2022 Sex and [...]
--- OUTSIDE RECORDS SUMMARY | 2024-11-25 10:23 | XMS_ITS | Encounter Summary ---
Author Organization [employer] Address [address] [facility] 7t [place] [address] Care Team Providers Care Assistant District Attorney Name Role Phone Katrin Santoyo MD Primary Care Pro vider Edison Vieira MD Unavailable [phone] Joe Devi MD Unavailable [phone] Chuy Mcmanus MD Unavailable Encounter Details Date Type Department Care Team (Late st Contact Info) Description 09/20/2024 Results Follow-Up [facility] [address] [place] [address] Billy Martínez MD [address] [place] [address] POCT glucose manually resulted, Uric acid, Basic Metabolic Panel, Additional followed-up results: 2 Social History Tobacco Use Types Packs/Day Years Used Date Smoking Tobacco: Never Passive Smoke Exposure: Never Smokeless Tobacco: Never Alcohol Use Standard Drinks/Week Comments Never 0 (1 standard drink = 0.6 oz pur e alcohol) Depression Answer Date Recorded Patient Health Questionnaire-9 Score 21 11/01/2024 Patient Health Questionnaire-9 Score 21 11/01/2024 Last PHQ-9: Questionnaire Data Not on file 0 11/01/2024 Housing Stability Answer Date Recorded What is your housing situation today? I have madelyn schmitz 11/01/[address] you li ve. Do you have problems with any of the following? None of the above 11/01/2024 Food Insecurity Answer Date Recorded Within the past 12 months, y ou worried that your food would run out before you got money to buy more: Never True 11/01/2024 Within the past 12 months,th e food you bought just didn't last and you didn't have enough money to get more: Never True Transportation Answer Date Recorded In the past 12 months, has l ack of transportation kept you from medical appts, meetings, work or from getting things needed for daily living? No 11/01/2024 Utilities Answer Date Recorded In the past 12 months, has t he electric, gas, oil or water company threatened to shut off services in your home? No 11/01/2024 Depression Answer Date Recorded Patient Health Questionnaire-2 Score 6 11/01/2024 Internet Access Answer Date Recorded Internet Access Q1 Yes 11/01/2024 Internet Access Q2 Not on file 11/01/2024 Sex and Gender Information Value Date Recorded Sex Assigned at Male 03/07/2022 10:30 AM EDT Legal Sex Male 10:30 AM EDT Gender Identity Male 11/07/2022 4:48 PM EDT Sexual Orientation Straight 11/07/2022 4: 48 PM EDT documented as of this encounter Functional Status * Over the past 2 weeks, how often have you been bothered by any of the following problems? Question Answer Date of Assessment Author Patient Health Questionnaire -2 Score 6 11/01/2024 2:47 PM EDT Tamiko Bray MA * Little interest or pleasure in doing things Answer Date of Assessment Author Nearly every day 11/01/2024 2:47 PM EDT Tamiko Bray MA * Feeling down, depressed, or hopeless Answer Date of Assessment Author Nearly every day 11/01/2024 2:47 PM EDT Tamiko Bray MA * Trouble falling or staying asleep, or sleeping too much Answer Date of Assessment Author Nearly every day 11/01/2024 2:47 PM EDT Tamiko Bray MA * Feeling tired or having little energy Answer Date of Assessment Author More than half the days 11/01/2024 2:47 PM EDT Tamiko Ulrich MA * Poor appetite or overeating Answer Date of Assessment Author More than half the days 11/01/2024 2:47 PM EDT Tamiko Ulrich MA * Feeling bad about yourself - or that you are a failure or have let yourself or your family down Answer Date of Assessment Author Several days 11/01/2024 2:47 PM EDT David Bray MA * Trouble concentrating on things, such as reading the newspaper or watching television Answer Date of Assessment Author Nearly every day 11/01/2024 2:47 PM MILEST Tamiko Bray MA * Moving or speaking so slowly that other people could have noticed? Or the opposite - being so fidgety or restless that you have been moving around a lot more than usual. Answer Date of Assessment Author Nearly every day 11/01/2024 2:47 PM MILEST Tamiko Bray MA * Thoughts that you would be better off or hurting yourself in some way Answer Date of Assessment Author Several days 11/01/2024 2:47 PM MILEST Davdi Bray MA * Patient Health Questionnaire-9 Score Answer Date of Assessment Author 11/01/2024 2:47 PM MILEST David Bray MA * How difficult have these problems made it for you to do your work, take care of things at home, or get along with other people? Answer Date of Assessment Author Extremely difficult 11/01/2024 2:47 PM MILEST Tamiko Green MA * Over the last 2 weeks, how often have you been bothered by any of the following problems? Question Answer Date of Assessment Author Feeling nervous, anxious, or on edge 1 11/01/2024 2:47 PM MILEST Tamiko Bray MA Not being able to stop or co ntrol worrying 3 11/01/2024 2:47 PM MILEST Tamiko Bray MA Worrying too much about diff erent things 3 11/01/2024 2:47 PM MILEST Tamiko Bray MA Trouble relaxing 3 11/01/2024 2:47 PM EDT Tamiko Ulrich MA Being so restless that it is hard to sit still 1 11/01/2024 2:47 PM MILEST Tamiko Bray MA Becoming easily annoyed or irritable 3 11/01/2024 2:47 PM EDT Tamiko Bray MA Feeling afraid as if somethi ng awful might happen 3 11/01/2024 2:47 PM EDT Tamiko Bray MA HARESH-7 Total Score 17 11/01/2024 2:47 PM EDT Tamiko Bray MA documented as of this encounter Plan of Treatment Upcoming Encounters Date Type Department Care Team (Late st Contact Info) Description 12/10/2024 1:00 PM EDT Medication Management [facility] MEDICINE [address] [place] [address] Rogelio Cuadra PharmD [address] [place] [address] 01/07/2025 2:15 PM EDT Office Visit [facility] [address] [place] [address] Katrin Santoyo MD [address] [place] [address] documented as of this encounter Goals Goal Patient Goal Type Associated Problems Recent Progress Patient-Stated? Author Blood Pressure < 140/90 Blood Pressure 140/100(11/22 11:10 AM EDT) No Eve Guzman, PharmD Hemoglobin A1c < 7 Result Component 9(11/01/2024 1:35 PM EDT) No Eve Guzman PharmD documented as of this encounter Visit Diagnoses Not on filedocumented in this encounter Additional Health Concerns Assessment Noted Time PHQ-9 Depression Total Score: 4 10/31/19 24 10:32 AM EDT documented as of this encounter Care Teams Assistant District Attorney Relationship Specialty Start Date End Date Katrin Santoyo MD [address] [place] [address] PCP - General Internal Medicine 12/13/22 Edison Vieira MD [address] [place] [address] Pulmonary Disease 04/07/24 Joe Devi MD [address]rd [place] [address] Gastroenterology 04/07/24 Chuy Mcmanus MD [address] [place] [address] [place] [address] Bariatrics 09/25/24 Carito Roche DNP [address] [facility], [address] [place] [address] Nephrology 04/07/24 [employer] 04/11/24 documented as of this encounter
== END 2024-11-25 09:47 | disposition home or self-care (01) ==
LOC: HO.US 09:46
PROVIDERS: PCP Student in an Organized Health Care Education/Training Program; Visit Provider Student in an Organized Health Care Education/Training Program
DX: N18.32 Chronic kidney disease, stage 3b (principal); D63.1 Anemia in chronic kidney disease; R80.9 Proteinuria, unspecified; R60.0 Localized edema
CPT/HCPCS: 93970

== ENCOUNTER → 2024-11-25 10:05 | Outpatient (BNV) | payer MEDICAID, SELFPAY | PROVIDERS: PCP Student in an Organized Health Care Education/Training Program; Visit Provider Radiology Diagnostic Radiology | DX: R60.0 Localized edema (principal) | CPT/HCPCS: 93970 ==

== ENCOUNTER → 2024-11-27 02:19 | Outpatient (BNV) | payer MEDICAID, SELFPAY | PROVIDERS: Emergency Provider Emergency Medicine; PCP Student in an Organized Health Care Education/Training Program; Visit Provider Radiology Diagnostic Radiology | DX: M54.50 Low back pain, unspecified (principal); M25.552 Pain in left hip; W19.XXXA Unspecified fall, initial encounter | CPT/HCPCS: 72100; 73502 ==

== ENCOUNTER 2024-11-27 02:32 | Emergency (ER) | payer MEDICAID, SELFPAY ==
--- NOTE | ~2024-11-27 | XR_ITS ---
CLINICAL HISTORY: fall pain PELVIS AND LEFT HIP X-RAYS COMPARISON: CT abdomen/pelvis 06/22/2023. FINDINGS: A total of 3 views of the pelvis and left hip were obtained. The frontal view of the pelvis is significantly limited due to film overpenetration. No definitive evidence of an acute fracture or dislocation involving the pelvis and left hip. Mild degenerative changes are noted within the hip joints. Symphysis pubis and sacroiliac joints are unremarkable. 1.4 cm nonaggressive appearing, nonspecific sclerotic lesion is noted within the left iliac bone. IMPRESSION: 1. Significantly limited exam. No definite acute fracture or dislocation. 2. If there remains concern for an acute fracture, a CT scan of the pelvis would be advised for a more accurate assessment. This document has been electronically signed by: Arnulfo Martinez M.D. on 11/27/2024 04:52:07
--- NOTE | ~2024-11-27 | XR_ITS ---
CLINICAL HISTORY: fall LUMBAR SPINE X-RAYS, FRONTAL AND LATERAL VIEWS COMPARISON: 01/23/2023. FINDINGS: Frontal and lateral views of the lumbar spine were obtained. No evidence of an acute fracture or dislocation within the lumbar spine. Vertebral body heights and alignment are maintained. No spondylolysis or spondylolisthesis. IMPRESSION: 1. No acute disease. This document has been electronically signed by: Arnulfo Martinez M.D. on 11/27/2024 04:43:11
[2024-11-27 02:44] VITALS: BP 186/106; PULSE 90; RESP 18; TEMP 36.7; O2SAT 93; BMI 48.6
[2024-11-27 04:42] VITALS: BP 144/80; PULSE 83; RESP 14; TEMP 36.7; O2SAT 96
--- NOTE | 2024-11-27 05:11 | ED.BACK ---
HPI - Back Pain/Injury General Chief Complaint: Back Pain/Injury Stated Complaint: back/side pain Time Seen by Provider: 11/27/24 04:46 Source: patient Mode of arrival: ambulatory Limitations: no limitations History of Present Illness ED Provider: Dr. Zena Saldivar HPI Narrative: Patient comes to the emergency room complaining of a fall. Patient states that he fell forward hitting his chin but complaining of left lower back pain. Denies any urinary incontinence/retention. Related Data Home Medications ?Medication ?Instructions ?Recorded ?Confirmed blood-glucose,international controller,cont 11/09/22 08/05/24 (Dexcom G7 Sheep Rancher) carvedilol 25 mg tablet 25 mg PO BID 11/09/22 08/05/24 pantoprazole 40 mg tablet,delayed 40 mg PO DAILY 11/09/22 08/05/24 release trazodone 150 mg tablet 150 mg PO BEDTIME PRN Sleep 11/09/22 08/05/24 acetaminophen 500 mg tablet 1,000 mg PO Q6H PRN fever 06/08/23 08/05/24 albuterol sulfate 2.5 mg/3 mL 2.5 mg inhalation Q6H PRN wheezing 06/08/23 08/05/24 (0.083 %) solution for nebulization aspirin 81 mg chewable tablet 1 tab PO DAILY 06/08/23 08/05/24 atorvastatin 80 mg tablet 80 mg PO DAILY 06/08/23 08/05/24 calcium carbonate (Calcium Antacid) 400 mg PO DAILY 06/08/23 08/05/24 carboxymethylcellulose sodium 0.5 1 drp ophthalmic (eye) NEEDED 06/08/23 08/05/24 % eye drops in a dropperette dry eyes (Lubricant Eye Drops) clonazepam 0.5 mg tablet 0.5 mg PO TID 06/08/23 08/05/24 divalproex 500 mg tablet,extended 1,000 mg PO BEDTIME 06/08/23 08/05/24 release 24 hr (Depakote ER) tiotropium bromide 1.25 2 puff inhalation DAILY 06/08/23 08/05/24 mcg/actuation mist for inhalation (Spiriva Respimat) ziprasidone HCl 80 mg capsule 80 mg PO BEDTIME 06/08/23 08/05/24 (Geodon) blood-glucose sensor (Dexcom G7 #1 ea 07/28/23 08/05/24 Sensor device) pen needle, diabetic 31 gauge x #1,200 ea 07/28/23 08/05/24 3/16 (BD Ultra-Fine Mini Pen Needle) ketotifen fumarate 0.025 % (0.035 1 drp ophthalmic (eye) BID PRN 03/20/24 08/05/24 %) eye drops (Eye Itch Relief) allergies insulin regular hum U-500 conc 500 135 unit subcut BEDTIME 04/24/24 08/05/24 unit/mL(3 mL) subcut pen (Humulin R U-500 (Conc) Insulin Kwikpen) omega-3 300 mg-dha 120 mg-epa 180 2 cap PO BID 06/21/24 08/05/24 mg-fish oil 1,000 mg capsule amlodipine 5 mg tablet 5 mg PO DAILY 10/09/24 diphenhydramine HCl 25 mg tablet 25 mg PO TID PRN 10/09/24 (Carey-Dryl) ezetimibe 10 mg tablet 10 mg PO DAILY 10/09/24 febuxostat 40 mg tablet 40 mg PO DAILY 10/09/24 gabapentin 100 mg capsule 100 mg PO BEDTIME 10/09/24 tramadol 50 mg tablet 50 mg PO Q12H PRN severe pain 10/09/24 Previous Rx's ?Medication ?Instructions ?Recorded tirzepatide (weight loss) 2.5 2.5 mg (0.5 mL) subcut QWEEK #2 mL 05/20/24 mg/0.5 mL subcutaneous pen injector (Zepbound) empagliflozin 10 mg tablet 10 mg PO DAILY #30 tabs 09/25/24 (Jardiance) cholecalciferol (vitamin D3) 125 125 mcg PO DAILY #30 caps 10/09/24 mcg (5,000 unit) capsule furosemide 40 mg tablet 40 mg PO DAILY #30 tabs 10/09/24 sodium polystyrene sulfonate 30 g PO .COMPLEX #453.6 grams 10/09/24 calcitriol 0.25 mcg capsule 0.25 mcg PO 3XW #14 caps 10/23/24 cyclobenzaprine 10 mg tablet 10 mg PO TID PRN muscle spasm #10 11/27/24 tabs tramadol 50 mg tablet 50 mg PO BID PRN pain #6 tabs 11/27/24 Allergies Allergy/AdvReac Type Severity Reaction Status Date / Time Penicillins (PENICILLINS) Allergy Intermediate RASH, Verified 11/27/24 02:45 DIFFICULTY BREATHING Review of Systems Review of Systems: Constitutional : No Weight loss, No Fever, No Chills, No Night Sweats, No Fatigue, No Malaise ENT/Mouth : No Hearing loss, No Ear Pain, No Nasal Congestion, No Sinus Pain, No Hoarseness, No sore throat, No Rhinorrhea, No Swallowing Difficulty Eyes: No Eye Pain, No Swelling, No Redness, No Foreign Body, No Discharge, No Vision Changes Cardiovascular : No Chest Pain, No SOB, No Dyspnea on Exertion, No Orthopnea, No Edema, No Palpitations Respiratory : No Cough, No Sputum, No Wheezing, No Smoke Exposure, No Dyspnea Gastrointestinal : No Nausea, No Vomiting, No Diarrhea, No Constipation, No abdominal Pain, No Hematochezia, No Melena Genitourinary : no irregular bleeding, No Dysuria, No Urinary Frequency, No Hematuria, No Urinary Incontinence, No Urgency, No Flank Pain, No Urinary Flow Changes, No Hesitancy Musculoskeletal : Complaining of left lower back pain, No joint pain, No Myalgias, No Joint Swelling Skin : No Skin Lesions, No rash Neuro : No Weakness, No Numbness, No Paresthesias, No Loss of Consciousness, No Dizziness, No Headache Psych : No Anxiety/Panic, No Depression, No SI/HI/AH/VH, No Social Issues, Heme/Lymph: No Bruising, No Bleeding,No Lymphadenopathy Endocrine : No Polyuria, No Polydipsia, No Temperature Intolerance [facility] Past Medical History Medical History HTN (hypertension) Leukocytosis Memory loss Obesity Idiopathic gout of multiple sites GERD (gastroesophageal reflux disease) Hypertensive chronic kidney disease Secondary hyperparathyroidism, renal Sleep apnea Type 2 diabetes mellitus Schizoaffective disorder Chronic pain syndrome Diabetic polyneuropathy Gout Surgical History History of esophagogastroduodenoscopy (EGD) H/O colonoscopy Family History Family History Father Cancer Diabetes Mother Cancer Diabetes Colon cancer Family/Other Cancer Diabetes Social History Social History Household Members: Spouse Housing: House Do you presently have visiting nurse or other home services: Yes Alcohol intake: never Patient Tobacco Use Status: Never used Tobacco Advance Directives: No Advance Directives Information Provided: Yes service: No Physical Exam Exam: Exam: Appearance: Alert. Oriented X3. No acute distress. Eyes: Pupils equal, round and reactive to light. ENT: Pharynx normal. Neck: Normal inspection. Neck supple. No lymph nodes noted. No crepitus CVS: Normal heart rate and rhythm. Pulses normal. Normal S1 and S2 Respiratory: No respiratory distress. Breath sounds normal. No Wheezing. No rales Abdomen: Soft and nontender. No rigidity. No distention. Back: Pain to palpation over the paraspinal muscles on the left side. No C-spine/thoracic/lumbar spine tenderness. Skin: Skin warm and dry. Normal skin color. Normal skin turgor. Extremities: No lower extremity edema. No Lacerations. No Rash Neuro: Oriented X 3. No motor deficit. No sensory deficit. Moving all extremities. No slurred speech. CN 2 through 12 grossly intact Psych: calm, cooperative, normal affect Vital Signs: Vital Signs: Last Vital Signs Temp 98.0 F 11/27/24 04:42 Pulse 83 11/27/24 04:42 Resp 14 11/27/24 04:42 BP 144/80 H 11/27/24 04:42 Pulse Ox 96 11/27/24 04:42 O2 Del Method Room Air 11/27/24 04:42 BMI result Body Mass Index 48.6 Medical Decision Making Medical Decision Making MDM Narrative: X-rays of the hip/pelvis and lumbar spine did not show any acute abnormality. Patient is offered p.o. medications. Patient states that he is concerned that he may become sleepy and therefore will hold off until he picks it up from the pharmacy and then gets home. Independent Interpretation I performed an independent interpretation of an: Plain X-Ray Radiology Impression Discussion of test interpretation with radiology: I have reviewed the radiologist's reading. Radiologist Impression: FINDINGS: A total of 3 views of the pelvis and left hip were obtained. The frontal view of the pelvis is significantly limited due to film overpenetration. No definitive evidence of an acute fracture or dislocation involving the pelvis and left hip. Mild degenerative changes are noted within the hip joints. Symphysis pubis and sacroiliac joints are unremarkable. 1.4 cm nonaggressive appearing, nonspecific sclerotic lesion is noted within the left iliac bone. IMPRESSION: 1. Significantly limited exam. No definite acute fracture or dislocation. 2. If there remains concern for an acute fracture, a CT scan of the pelvis would be advised for a more accurate assessment. Frontal and lateral views of the lumbar spine were obtained. No evidence of an acute fracture or dislocation within the lumbar spine. Vertebral body heights and alignment are maintained. No spondylolysis or spondylolisthesis. IMPRESSION: 1. No acute disease Discharge Plan Discharge Clinical Impression: Back pain, Fall Patient Disposition: Home, Self-Care Instructions: Acute Low Back Pain (ED), Fall Prevention (ED) Additional Instructions: Please follow-up with your primary care physician tomorrow. If you have any worsening or new symptoms, please return to the emergency room or call 911 Prescriptions: New cyclobenzaprine 10 mg tablet 10 mg PO TID PRN (Reason: muscle spasm) Qty: 10 0RF tramadol 50 mg tablet 50 mg PO BID PRN (Reason: pain) Qty: 6 0RF No Action Jardiance 10 mg tablet 10 mg PO DAILY Qty: 30 2RF furosemide 40 mg tablet 40 mg PO DAILY Qty: 30 4RF cholecalciferol (vitamin D3) 125 mcg (5,000 unit) capsule 125 mcg PO DAILY Qty: 30 4RF ziprasidone HCl [Geodon] 80 mg capsule 80 mg PO BEDTIME atorvastatin 80 mg tablet 80 mg PO DAILY albuterol sulfate 2.5 mg /3 mL (0.083 %) solution for nebulization 2.5 mg inhalation Q6H PRN (Reason: wheezing) clonazepam 0.5 mg tablet 0.5 mg PO TID acetaminophen 500 mg tablet 1,000 mg PO Q6H PRN (Reason: fever) divalproex [Depakote ER] 500 mg tablet extended release 24 hr 1,000 mg PO BEDTIME calcium carbonate [Calcium Antacid] 200 mg calcium (500 mg) tablet,chewable 400 mg PO DAILY carboxymethylcellulose sodium [Lubricant Eye Drops] 0.5 % dropperette 1 drp ophthalmic (eye) NEEDED Spiriva Respimat 1.25 mcg/actuation mist 2 puff INHALATION DAILY aspirin 81 mg tablet,chewable 1 tab PO DAILY Humulin R U-500 (Conc) Kwikpen 500 unit/mL (3 mL) insulin pen 135 unit subcut BEDTIME omega 2-wmy-zww-fish oil 300 mg (120 mg- 180mg)-1,000 mg capsule 2 cap PO BID tramadol 50 mg tablet 50 mg PO Q12H PRN (Reason: severe pain) ketotifen fumarate [Eye Itch Relief] 0.025 % (0.035 %) drops 1 drp ophthalmic (eye) BID PRN (Reason: allergies) Zepbound 2.5 mg/0.5 mL pen injector 2.5 mg subcut QWEEK Qty: 2 0RF Rx Instructions: for 4 weeks amlodipine 5 mg tablet 5 mg PO DAILY ezetimibe 10 mg tablet 10 mg PO DAILY febuxostat 40 mg tablet 40 mg PO DAILY diphenhydramine HCl [Carey-Dryl] 25 mg tablet 25 mg PO TID PRN sodium polystyrene sulfonate Powder 30 g PO .COMPLEX Qty: 453.6 3RF Rx Instructions: 30 grams orally once a week; gabapentin 100 mg capsule 100 mg PO BEDTIME calcitriol 0.25 mcg capsule 0.25 mcg PO 3XW Qty: 14 3RF trazodone 150 mg tablet 150 mg PO BEDTIME PRN (Reason: Sleep) pantoprazole 40 mg tablet,delayed release (DR/EC) 40 mg PO DAILY carvedilol 25 mg tablet 25 mg PO BID Rx Instructions: must administer with a meal/food (DME) Dexcom G7 Sheep Rancher Misc See Rx Instructions .Route Rx Instructions: As directed (DME) Dexcom G7 Sensor Device See Rx Instructions .ROUTE QWEEK Qty: 1 Rx Instructions: As directed (DME) pen needle, diabetic [BD Ultra-Fine Mini Pen Needle] 31 gauge x 3/16 needle See Rx Instructions .ROUTE DIRECTED Qty: 1200 Rx Instructions: As directed Print Language: Nigerian
[2024-11-27 05:42] VITALS: BP 144/80; PULSE 83; RESP 14; TEMP 36.7; O2SAT 96
== END 2024-11-27 05:43 | disposition home or self-care (01) ==
PROVIDERS: Emergency Provider Emergency Medicine; PCP Student in an Organized Health Care Education/Training Program
DX: M54.50 Low back pain, unspecified (principal); M25.552 Pain in left hip
CPT/HCPCS: 72100; 73502; 99283; 99284

== ENCOUNTER → 2024-12-06 23:59 | Outpatient (BNV) | payer MEDICAID, SELFPAY | PROVIDERS: Visit Provider Internal Medicine Nephrology | DX: N18.6 End stage renal disease (principal) | CPT/HCPCS: 90961 ==

== ENCOUNTER 2024-12-18 12:07 | Outpatient (REF) | payer MEDICAID, SELFPAY ==
--- OUTSIDE RECORDS SUMMARY | 2024-12-18 12:50 | XMS_ITS | Clinical Summary ---
Author Organization [facility] Address [address] [facility] [address] [place] [address] Phone Care Team Providers Care Optician Name Role Phone Katrin Brumfield Primary Care [...] time each day 90 tablet 3 4 Active ergocalciferol 1.25 MG (44382 UT) capsule Take 1 capsule (50,000 Units [...] (01/25/2023): information and pathology of colonospcy in [facility] 09-09-2020 note Asthma 01/06/2023 01/25/2023 Arthritis [...] AM with Arben Fountain DPM at the [facility] -Will f/u with Pt in a month [...] (see MRI of Brain from 2017 under [facility] Multimedia -Significant deficits on neurologic exam Memory loss and Left handed weakness -Imaging and prior evaluation -Current blood thinning agents is aspirin -Potential details to include, when relevant: poor GAIT, uses a walker to get around -How the diagnosis was made: Pt lived in [facility] at the time, Under Multimedia in [facility] see specific file at specific date [id number] Image MRI Result [facility] - MRI BRAIN CVA -09/25/2016 [id number] Image Evaluation [facility]- Left handed weakness note - 02/20/2017 CT [...] 2019, the Pt needs to call the [facility] [address] [place] [address] Diabetic foot 02/07/2019 01/25/2023 01/25/2023 Overview (01/25/2023): Last Assessment & Plan: The Pt continues to deal with bilateral foot pain and wears a pair of Diabetic shoes with specification ordered by his Fitter'S Assistant Doctor Patient encounter status 02/07/2019 01/25/2023 Overview [...] will be called biweekly by the [facility] Nurse to review his FBS finger [...] medications -He has been following with the [facility] team and reports taking all of [...] of 2 - PCV) 03/24/2023 03/24/2022, 01/21/2021 Influenza Vaccine (#1) 2025 4, 01/23/2023, 03/24/2022, Additional history exists Diabetes: Hemoglobin A1C 02/01/2025 025, 03/27/2024, 09/19/2023, Additional history exists Colorectal Cancer Screening: Colonoscopy 01/25/2033 01/25/2023 Pneumococcal Vaccine: Peds ( 0 to 5 Years) and At-Risk Patients (6 to 49 Years) Discontinued 03/24/2022, 01/21/2021 [place] Care Teams Optician Relationship Specialty Start Date End Date Katrin Brumfield [address] [place] [address] [phone] PCP - General 04/17/23
--- OUTSIDE RECORDS SUMMARY | 2024-12-18 12:50 | XMS_ITS | Encounter Summary ---
Author Organization [facility] Address [address] [place] [address] Care Team Providers Care Lidding Machine Operator Name Role Phone Deep Pruitt APRN Primary Care Provider Reason for Visit * Reason Comments Medication Refill Encounter Details Date Type Department Care Team ([facility] st Contact Info) Description 06/07/2022 Refill [facility] [address] [place], [place] [phone] Deep Pruitt APRN [address] [place] [address] Medication Refill Social History Tobacco [...] Date Recorded PHQ-2 Total Score 2 02/17/2022 [facility] [...] your living situation today? I have a [facility] place to live 05/19/2022 Sex and [...] documented as of this encounter Care Teams Lidding Machine Operator Relationship Specialty Start Date End Date Deep Pruitt APRN PCP - General 05/22/19 documented as of this encounter
--- OUTSIDE RECORDS SUMMARY | 2024-12-18 12:50 | XMS_ITS | Clinical Summary ---
Author Organization [address] [facility] Address [address] [place] [address] Phone Care Team Providers Care Thermodynamics Teacher Name Role Phone Physician, No Pcp Primary [...] History Medical History Date Comments Diabetes mellitus ([facility] V24, [facility] V28) Hypertension REGI (obstructive sleep apnea) Social [...] PM EDT Office Visit [facility] [place] [address] [place] [id number] Jan Amor, DPChristina [address] [address] Health Maintenance Due Date Last Done Comments [...] BMP Blood Test (11/07/2023) Pathologist [facility] Annual BMP Blood Test Abstracted Historical Provider HEALTH MAINTENANCE Final Result * Lipid panel (09/19/2023) Triglycerides 0 mg/dL Comment:No interpretation Cholesterol 0 mg/dL Comment:No interpretation HDL 0 mg/dL Comment:No interpretation LDL Cholesterol 0 mg/dL Comment:No interpretation Blood Venous blood specimen / Unknown Historical Provider LAB BLOOD ORDERABLES Fauzia l Result * Urine Albumin Creatinine Ratio (05/19/2023) [facility] Urine Albumin Creatinine Ratio Abstracted [facility] Provider HEALTH MAINTENANCE Final Result * Hemoglobin A1c (05/17/2023) [facility] Hemoglobin A1C 0.0 % Comment:No interpretation Blood Venous blood specimen / Unknown [facility] Provider LAB BLOOD ORDERABLES Fauzia l Result * HIV Screening (12/06/2022) [facility] HIV Screening Abstracted Result [facility] Provider HEALTH MAINTENANCE Final Result * Hepatitis C Screening (12/06/2022) [facility] Hepatitis C Screening Abstracted [facility] Provider HEALTH MAINTENANCE Final Result from Last 3 Months or Most Recently Relevant to Health Maintenance [place] Care Teams Thermodynamics Teacher Relationship Specialty Start Date End Date Physician, No Pcp PCP - General 04/08/24
--- OUTSIDE RECORDS SUMMARY | 2024-12-18 12:50 | XMS_ITS | Encounter Summary ---
Author Organization [employer] Address [address] [facility] [address] [place] [address] Care Team Providers Care Rotary Drill Operator Name Role Phone Katrin Santoyo MD Primary Care Pro vider Edison Vieira MD Unavailable [phone] Joe Devi MD Unavailable [phone] Chuy Mcmanus MD Unavailable Sveta Lazaro RN Unavailable [phone] Leslie Kline Unavailable Reason for Visit * Reason Comments Med Refill Encounter Details Date Type Department Care Team (Late st Contact Info) Description 02/11/2024 Refill [facility] MEDICINE [address] [place] [address] Moriah Herbert FNP [address] [place] [address] Chronic radicular lumbar pain Social History Tobacco [...] the past 12 months, has t he [employer], gas, oil or water company threatened to [...] Care Team (Late st Contact Info) Description 12/24/2024 1:30 PM EDT Medication Management [address] [address] Rogelio Cuadra, PharmD [address] [place] [id number] 12/26/2024 10:00 AM EDT Office Visit [address] [address] Katrin Santoyo MD [address] [place] [id number] 01/07/2025 2:15 PM EDT Office Visit [address] [address] Katrin Santoyo MD [address] [place] [phone] documented as of this encounter Goals Goal [...] documented as of this encounter Care Teams Rotary Drill Operator Relationship Specialty Start Date End Date Katrin Santoyo MD [address] [place] [phone] PCP - General Internal Medicine 12/13/22 Edison Vieira MD [address] [place] [address] Pulmonary Disease 04/07/24 Joe Devi MD [address] [place] [address] [address] [place] [address] Gastroenterology 04/07/24 Chuy Mcmanus MD [address] [place] [address] [place] [address] Bariatrics 09/25/24 Sveta Lazaro RN [address] [place] [phone] Registered Nurse Family Medicine 11/29/24 Leslie Kline 11/29/24 Carito Roche DNP [address] [facility], [address] [place] [address] Nephrology 04/07/24 [employer] 04/11/24 documented as of this encounter
[2024-12-18 14:35] LABS: Anion Gap 21 (12-20); Blood Urea Nitrogen 109 mg/dL (9-16); Carbon Dioxide 21 mmol/L (22-29); Chloride 109 mmol/L (96-108); Estimated Glomerular Filt Rate 5; Potassium 4.5 mmol/L (3.3-5.1); Sodium 146 mmol/L (135-145)
== END 2024-12-18 12:08 | disposition home or self-care (01) ==
LOC: HO.LAB 12:07
PROVIDERS: PCP Student in an Organized Health Care Education/Training Program; Visit Provider Internal Medicine Nephrology
DX: E11.22 Type 2 diabetes mellitus with diabetic chronic kidney disease (principal); N18.5 Chronic kidney disease, stage 5
CPT/HCPCS: 36415; 80051; 82565; 84520

== ENCOUNTER 2024-12-19 11:11 | Outpatient (AMB) | payer MEDICAID, SELFPAY ==
--- NOTE | 2024-12-19 09:45 | HO.NEPHOV ---
Vital Signs 12/19/24 11:12 Height 5 ft 9 in Weight 247 lb BMI 36.5 BP 189/82 H Blood Pressure Location Rt brachial Pulse 84 Pulse Source Pulse Oximeter Pulse Oximetry (%) 93 Oxygen Delivery Method Room Air Intake Visit Reasons: Dr Rodriguez pt E Commerce Strategist Required: Yes E Commerce Strategist Name: Deana [id number] Accompanied by: Spouse Allergies Penicillins (PENICILLINS) Allergy (Intermediate, Verified 12/19/24 11:16) RASH, DIFFICULTY BREATHING HPI Comments Details: Darrel is a 54 y/o male with a medical history of longstanding DMII, REGI, HTN, HLD, CVA with hemiparesis (reports in 2019), DM II, REGI, gout, GERD, rheumatoid arthritis and CKD 4 with progressive worsening renal function. patient has elevated urine protein/creatinine ratio of ~14 .renal ultrasound from 03/25 unremarkable- bilateral pelviectasis without trevor hydronephrosis. serum immunofixation with faint IgG kappa monoclonal band present. He denies any uremic symptoms but has been having worsening renal function. patient was hospitalized at [facility] [place] on 11/29-12/03 after 1 week of diarrhea and abdominal pain. Per [facility] [place] discharge notes, had anasarca and acute on chronic renal disease during which time a permcath and renal biopsy was recommended due to ongoing oliguria despite furosemide and IV albumin. Left AMA. Then presented again on 12/06 to [facility] [place] with shortness of breath, was treated for acute respiratory failure and admitted to the ICU on bipap. CT showed pneumonia vs pulmonary edema, completed 7 day course of ceftriaxone as well as high dose lasix 120mg IVP TID. Renal team at [facility] had plans for dialysis in house but per [facility] [place] documentation pt declined and requested he see his primary steward/stewardess deck Dr Rodriguez at [facility] for discussion of permcath placement and renal biopsy if needed and initiation of dialysis if needed. He was given high dose lasix 120mg IVP TID and diuresed and was weaned down on oxygen to home 2L NC. Patient is here with his daughter, also son is on the phone. Patient and family state he received dialysis at [facility] [place], permcath was removed prior to discharge. Patient states he is aware he has been close to dialysis and has spoken to Dr Rodriguez about this at previous visits. Reports he is amenable to dialysis if it is necessary at this time. States he will not go to the hospital right now. patient reports today his blood pressure is high because he ran out of his blood pressure medicines, but states he is receiving them today and will take them as soon as he has them today. He denies chest pain, shortness of breath, abdominal/flank pain, muscle cramping, tremors/ticks, pruritus, confusion/brain fog, nausea/vomiting. He states he continues to make urine and feels his urine output has been steadily increasing since leaving the hospital. He states he has some mild LE edema, but reports much improved since hospitalization. [facility] Medical History HTN (hypertension) Leukocytosis Memory loss Obesity Idiopathic gout of multiple sites GERD (gastroesophageal reflux disease) Hypertensive chronic kidney disease Secondary hyperparathyroidism, renal Sleep apnea Type 2 diabetes mellitus Schizoaffective disorder Chronic pain syndrome Diabetic polyneuropathy Gout Surgical History History of esophagogastroduodenoscopy (EGD) H/O colonoscopy Family History Father Cancer Diabetes Mother Cancer Diabetes Colon cancer Family/Other Cancer Diabetes Social History Household Members: Spouse Housing: House Do you presently have visiting nurse or other home services: Yes Alcohol intake: never Patient Tobacco Use Status: Never used Tobacco service: No Review of Systems Const All systems reviewed & are unremarkable except as noted in HPI and below Physical Exam Const General: comfortable, no acute distress, alert and awake Neck Neck: Yes no JVD Resp Effort & Inspection: normal respiratory effort and able to speak in complete sentences Auscultation: clear to auscultation bilaterally Cardio Jugular venous distension: no JVD Rate: regular rate Rhythm: regular rhythm Heart sounds: S1 normal heart sound present and S2 normal heart sound present GI Palpation (GI): Soft to palpation and nontender General: Yes no CVA tenderness Back/Spine/Pelvis Back: no CVA tenderness Neuro Other: no tremor. no asterixis. Extrem General: Yes edema (trace edema BLE, pitting. ) Results Reviewed Nephrology Results: Hgb, (14.0-18.0) 14.1 g/dl 10/18/24 WBC, (4.8-10.8) 11.9 X10*3/uL H 10/18/24 Plt Count, (160-400) 330 X10*3/uL Δ 10/18/24 Sodium, (135-145) 146 mmol/L H 12/18/24 Potassium, (3.3-5.1) 4.5 mmol/L 12/18/24 Chloride, (96-108) 109 mmol/L H 12/18/24 Carbon Dioxide, (22-29) 21 mmol/L L 12/18/24 BUN, (9-16) 109 mg/dL H 12/18/24 Creatinine, (0.5-1.4) 10.22 mg/dL H* 12/18/24 Calcium, (8.4-10.2) 8.2 mg/dL L 11/12/24 Urine Protein, (Neg-Trace) >=1000 (4+) mg/dL H 11/12/24 Renal US 03/25/24 Assessment & Plan Assessment & Plan (1) HTN (hypertension): Code(s): I10 - Essential (primary) hypertension Category: Medical Qualifiers: Hypertension type: primary hypertension Qualified Code(s): I10 - Essential (primary) hypertension (2) Secondary hyperparathyroidism: Code(s): N25.81 - Secondary hyperparathyroidism of renal origin Category: Medical (3) CKD stage 5 due to type 2 diabetes mellitus: Code(s): E11.22 - Type 2 diabetes mellitus with diabetic chronic kidney disease; N18.5 - Chronic kidney disease, stage 5 Category: Medical (4) Diabetic nephropathy associated with type 2 diabetes mellitus: Code(s): E11.21 - Type 2 diabetes mellitus with diabetic nephropathy Category: Medical (5) ESRD needing dialysis: Code(s): N18.6 - End stage renal disease; Z99.2 - Dependence on renal dialysis Category: Medical Plan CKD due to diabetic nephropathy which has progressed and will require dialysis. Has a faint monoclonal band present on workup. He is on Jardiance and lasix. He will not tolerate CALEB/ARB for proteinuria with his current GFR and hyperkalemia. On Vitamin D. Blood pressure is elevated, pt states he has not been taking blood pressure medication but will take per today. Urgent referral for permcath placed. Discussed with patient he needs this within the next day or two if possible. Advised he will need to start outpatient dialysis once the catheter is in place. Advised he is in need of dialysis; discussed in detail uremic symptoms (nausea, vomiting, confusion/lethargy, muscle cramping, pruritus, significant reduction in UOP from current baseline or lack of urine output, chest pain, shortness of breath) to watch out for that, if present, indicate he needs to go to the hospital for emrrgent dialysis- pt and family agree to plan. He will return Monday or Monday next week for follow up and to check blood pressure. He will re-start his home blood pressure medication regimen in the meantime. He agrees to get blood work orders done before his appointment. Discussed above with Dr Sage who agrees with plan. 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
[2024-12-19 11:12] VITALS: BP 189/82; PULSE 84; O2SAT 93; BMI 36.5
== END 2024-12-19 11:52 | disposition home or self-care (01) ==
LOC: HO.HKA 11:11
PROVIDERS: PCP Student in an Organized Health Care Education/Training Program; Visit Provider Nurse Practitioner Family
DX: I12.0 Hypertensive chronic kidney disease with stage 5 chronic kidney disease or end stage renal disease (principal); N25.81 Secondary hyperparathyroidism of renal origin; E11.22 Type 2 diabetes mellitus with diabetic chronic kidney disease; N18.5 Chronic kidney disease, stage 5; E11.21 Type 2 diabetes mellitus with diabetic nephropathy; N18.6 End stage renal disease; Z99.2 Dependence on renal dialysis
CPT/HCPCS: 99214

== ENCOUNTER → 2024-12-19 11:11 | Outpatient (BNVA) | payer MEDICAID, SELFPAY | PROVIDERS: PCP Student in an Organized Health Care Education/Training Program; Visit Provider Nurse Practitioner Family | DX: I10 Essential (primary) hypertension (principal); N25.81 Secondary hyperparathyroidism of renal origin; E11.22 Type 2 diabetes mellitus with diabetic chronic kidney disease; E11.21 Type 2 diabetes mellitus with diabetic nephropathy; N18.6 End stage renal disease; Z99.2 Dependence on renal dialysis | CPT/HCPCS: 99212 ==

== ENCOUNTER → 2024-12-23 08:19 | Outpatient (BNV) | payer MEDICAID, SELFPAY | PROVIDERS: PCP Student in an Organized Health Care Education/Training Program; Visit Provider Radiology Diagnostic Radiology | DX: N18.6 End stage renal disease (principal); Z99.2 Dependence on renal dialysis | CPT/HCPCS: 36558; 76937 ==

== ENCOUNTER 2024-12-23 08:22 | Day surgery (SDC) | payer MEDICAID, SELFPAY ==
--- OUTSIDE RECORDS SUMMARY | 2024-12-20 11:40 | XMS_ITS | Clinical Summary ---
Author Organization [facility] Address [address] [facility] [address] [place] [address] Phone Care Team Providers Care Business Manager [employer] Name Role Phone Katrin Brumfield Primary Care [...] tablet 3 4 Active ergocalciferol 1.25 MG (65810 UT) capsule Take 1 capsule (50,000 Units [...] information and pathology of colonospcy in [facility] 09-09-2020 note Asthma 01/06/2023 01/25/2023 Arthritis 01/06/2023 [...] (see MRI of Brain from 2017 under [facility] Multimedia -Significant deficits on neurologic exam Memory loss and Left handed weakness -Imaging and prior evaluation -Current blood thinning agents is aspirin -Potential details to include, when relevant: poor GAIT, uses a walker to get around -How the diagnosis was made: Pt lived in [facility] at the time, Under Multimedia in [facility] see specific file at specific date [id number].TIF Image MRI Result [facility] - MRI BRAIN CVA -09/25/2016 [id number].TIF Image Evaluation [facility]- Left handed weakness note - 02/20/2017 CT [...] 2019, the Pt needs to call the [facility] [address] [place] [address] Diabetic foot 02/07/2019 01/25/2023 01/25/2023 Overview (01/25/2023): Last Assessment & Plan: The Pt continues to deal with bilateral foot pain and wears a pair of Diabetic shoes with specification ordered by his Product Marketing Executive Doctor Patient encounter status 02/07/2019 01/25/2023 Overview [...] -Pt will be called biweekly by the [facility] Nurse to review his FBS finger sticks [...] medications -He has been following with the [facility] team and reports taking all of [...] decided to move his family back to [place] area due to being closer to family [...] 49 Years) Discontinued 03/24/2022, 01/21/2021 [place] Care Teams Business Manager College Or [employer] Relationship Specialty Start Date End Date Katrin Brumfield [address] [place] [address] [phone] PCP - General 04/17/23
--- OUTSIDE RECORDS SUMMARY | 2024-12-20 11:40 | XMS_ITS | Encounter Summary ---
Author Organization [facility] Address [address] [place] [address] Care Team Providers Care Foot Worker Name Role Phone Deep Pruitt APRN Primary Care Provider Reason for Visit * Reason Comments Medication Refill Encounter Details Date Type Department Care Team ([facility] st Contact Info) Description 06/07/2022 Refill [facility] [address] [place], [place] [id number] Deep Pruitt APRN [address] [place] [address] Medication Refill Social History Tobacco [...] you attend chur ch or scientology services? More than 4 times per year [...] Date Recorded PHQ-2 Total Score 2 02/17/2022 [facility] - [...] documented as of this encounter Care Teams Foot Worker Relationship Specialty Start Date End Date Deep Pruitt APRN PCP - General 05/22/19 documented as of this encounter
--- OUTSIDE RECORDS SUMMARY | 2024-12-20 11:40 | XMS_ITS | Clinical Summary ---
Author Organization [address] [facility] Address [address] [place] [address] Phone Care Team Providers Care Family Medicine Chair Name Role Phone Physician, No Pcp Primary [...] History Medical History Date Comments Diabetes mellitus ([facility] V24, [facility] V28) Hypertension REGI (obstructive sleep [...] PM EDT Office Visit [facility] [place] [address] [place] [id number] Jan Amor, DPChristina [address] [address] Health Maintenance Due Date Last Done Comments [...] * Annual BMP Blood Test (11/07/2023) Pathologist [facility] Annual BMP Blood Test Abstracted Historical Provider HEALTH MAINTENANCE Final Result * Lipid panel (09/19/2023) Triglycerides 0 mg/dL Comment:No interpretation Cholesterol 0 mg/dL Comment:No interpretation HDL 0 mg/dL Comment:No interpretation LDL Cholesterol 0 mg/dL Comment:No interpretation Blood Venous blood specimen / Unknown Historical Provider LAB BLOOD ORDERABLES Fauzia l Result * Urine Albumin Creatinine Ratio (05/19/2023) [facility] Urine Albumin Creatinine Ratio Abstracted [facility] Provider HEALTH MAINTENANCE Final Result * Hemoglobin A1c (05/17/2023) [facility] Hemoglobin A1C 0.0 % Comment:No interpretation Blood Venous blood specimen / Unknown [facility] Provider LAB BLOOD ORDERABLES Fauzia l Result * HIV Screening (12/06/2022) [facility] HIV Screening Abstracted Result [facility] Provider HEALTH MAINTENANCE Final Result * Hepatitis C Screening (12/06/2022) [facility] Hepatitis C Screening Abstracted [facility] Provider HEALTH MAINTENANCE Final Result from Last 3 Months or Most Recently Relevant to Health Maintenance [place] Care Teams Family Medicine Chair Relationship Specialty Start Date End Date Physician, No Pcp PCP - General 04/08/24
--- OUTSIDE RECORDS SUMMARY | 2024-12-20 11:40 | XMS_ITS | Encounter Summary ---
Author Organization [employer] Address [address] [facility] [address] [place] [address] Care Team Providers Care Vision Care Associate Name Role Phone Katrin Santoyo MD Primary Care Pro vider Edison Vieira MD Unavailable [phone] Joe Devi MD Unavailable [phone] Chuy Mcmanus MD Unavailable Sveta Lazaro RN Unavailable [phone] Leslie Kline Unavailable Reason for Visit * Reason Comments Med Refill Encounter Details Date Type Department Care Team (Late st Contact Info) Description 02/11/2024 Refill [facility] MEDICINE [address] [place] [address] Moriah Herbert FNP [address] [place] [address] Chronic radicular lumbar pain Social History Tobacco [...] the past 12 months, has t he [employer] gas, oil or water company threatened to [...] Description 12/24/2024 1:30 PM EDT Medication Management [address] [address] Rogelio Cuadra, PharmD [address] [place] [phone] 12/26/2024 10:00 AM EDT Office Visit [address] [address] Katrin Santoyo MD [address] [place] [phone] 01/07/2025 2:15 PM EDT Office Visit [address] [address] Katrin Santoyo MD [address] [place] [phone] documented as of this encounter Goals Goal [...] documented as of this encounter Care Teams Vision Care Associate Relationship Specialty Start Date End Date Katrin Santoyo MD [address] [place] [phone] PCP - General Internal Medicine 12/13/22 Edison Vieira MD [address] [place] [address] Pulmonary Disease 04/07/24 Joe Devi MD [address] [place] [address] [address] [place] [address] Gastroenterology 04/07/24 Chuy Mcmanus MD [address] [place] [address] [place] [address] Bariatrics 09/25/24 Sveta Lazaro RN [address] [place] [phone] Registered Nurse Family Medicine 11/29/24 Leslie Kline 11/29/24 Carito Roche DNP [address] [facility], [address] [place] [address] Nephrology 04/07/24 [place] 04/11/24 12/18/24 [facility] 12/14/24 documented as of this encounter
[2024-12-23] VITALS (22 sets, daily range): BP systolic 147–202; BP diastolic 80–123; PULSE 86–95; RESP 16–18; TEMP 36.4–36.7; O2SAT 94–100; BMI 37.3
--- NOTE | ~2024-12-23 | IR_ITS ---
PROCEDURE: IR INSERTION OF TUNNEL CATHETER CLINICAL INFORMATION: Creatinine 4.0. Permacath for dialysis COMPARISON: None available. TECHNIQUE: Following explaining ultrasound and fluoroscopy-guided placement of left side permacatheter procedure, benefits and risk the a certification and selection specialist, a written consent was obtained. Patient was placed supine on angiography table and preliminary ultrasound imaging to the left neck was obtained. An optimal site was selected and marked on the skin. The marked site was cleaned and draped in usual sterile manner. 1% lidocaine was injected at marked site. Under sterile ultrasound guidance a singlewall needle was advanced from the skin/marked site into left jugular vein. After obtaining venous return a thin guidewire was advanced and needle removed. A 5 English dilator was placed over the guidewire and anchored to the drape. Approximately 1 gauze length lateral and inferior to the neck puncture one percent lidocaine was administered along the upper left anterior chest wall. A small skin incision was performed. The permacatheter connected to tunneler was tunneled through this anterior chest wall skin incision to the left anterior chest wall incision. The tunneler and the entire catheter was pulled through the left anterior neck incision tunneler was removed. The guidewire to the 5 English neck was reviewed and replaced by 0.035 J-wire advanced into the IVC under fluoroscopy. The 5 English pigtail was removed and the tract was dilated up to 16 English dilator. A 16 English dilator with peel-away sheath was introduced over the guidewire and the dilator and the guidewire was removed. The permacatheter was then inserted through the peel-away sheath. Holding the permacatheter in place the peel-away sheath was removed. A single fluoroscopy image was obtained over the left chest wall revealing the position of catheter in the proximal SVC is/brachiocephalic venous junction. The permacatheter was then flushed with saline followed by heparin. Absorbable sutures are placed along the left anterior neck and anterior chest wall incision surrounding the skin and the catheter to achieve hemostasis. Simple dressing with Steri-Strips were placed at the incision sites. IV vancomycin 1 g was administered during the exam as patient is allergic to penicillin. Conscious sedation was utilized during exam and patient monitored by the IV nurse and radiologist. All elements of maximal sterile barrier technique followed including use of cap, mask, sterile gown, sterile gloves, a sterile full body drape and hand hygiene. Also followed skin preparation with 2% chlorhexidine for cutaneous antisepsis, and sterile ultrasound preparation with sterile gel and probe cover when applicable. FINDINGS: On preliminary ultrasound imaging the left jugular vein is patent. Successful ultrasound and fluoroscopy-guided placement of a 27 cm long 12 English permacatheter with the tip in the proximal SVC/brachiocephalic venous junction. Fluoroscopy time: 1.1 minute. Dose: 20.830 mGy. Electronically signed by: Huey Floyd MD 12/23/2024 04:41 PM EDT
[2024-12-23 09:41] LABS: MANUAL DIFF FLAG NO
[2024-12-23 09:43] LABS: Hematocrit 39.4 % (42.0-52.0); Hemoglobin 12.7 g/dl (14.0-18.0); Imm Gran Abs Auto 0.07 X10*3/uL (0.00-0.03); Imm Gran Pct Auto 0.6 % (0.0-0.4); Lymphocytes Absolute Auto 1.8 X10*3/uL (1.2-4.9); Mean Corpuscular HGB Conc 32.2 g/dl (31.0-36.0); Mean Corpuscular Hemoglobin 29.4 pg (27.0-33.0); Mean Corpuscular Volume 91.2 fL (80.0-98.0); NRBC Abs Auto 0.000 X10*3/uL (0.0-0.012); NRBC Pct Auto 0.0 /100WBC (0.0-0.2); Platelet Count 366 X10*3/uL (160-400); Red Blood Count 4.32 X10*6/uL (4.60-5.80); White Blood Count 11.8 X10*3/uL (4.8-10.8)
[2024-12-23 09:52] LABS: INTERNATIONAL NORM RATIO 0.9 (0.9-1.1); Prothrombin Time 10.6 SEC (10.9-12.4)
[2024-12-23 09:55] LABS: Partial Thromboplastin Time 31.3 SEC (26.7-34.1)
[2024-12-23 10:04] LABS: Glucose, Whole Blood 126 mg/dL (60-115)
[2024-12-23] MEDS: vancomycin/NS 2,000 MG/500 ML PLAST..BAG 250 MG IV (10:55)
--- NOTE | 2024-12-23 11:07 | PC.NURSE ---
updated regarding patient blood pressure results, manual and automatic and that patient did not take any po medications this morning and patient is asymptomatic. dr. garces assessed at bedside and IR RN to medicate pre procedure per doctor. team cdl driver present while dr. garces assessed patient and reviewed past med hx and recent hospitalization. at bedside as well.
--- NOTE | 2024-12-23 11:09 | PC.NURSE ---
patient and state that patient was taken off GLP-1 injectable medication at recent hospitalization and has been removed from med. rec.
== END 2024-12-23 15:03 | disposition home or self-care (01) ==
PROVIDERS: Radiology Diagnostic Radiology; PCP Student in an Organized Health Care Education/Training Program; Visit Provider Nurse Practitioner Family
DX: E11.22 Type 2 diabetes mellitus with diabetic chronic kidney disease (principal); E11.21 Type 2 diabetes mellitus with diabetic nephropathy; I12.9 Hypertensive chronic kidney disease with stage 1 through stage 4 chronic kidney disease, or unspecified chronic kidney disease; N18.6 End stage renal disease; Z99.2 Dependence on renal dialysis; N25.81 Secondary hyperparathyroidism of renal origin; M06.9 Rheumatoid arthritis, unspecified; I69.859 Hemiplegia and hemiparesis following other cerebrovascular disease affecting unspecified side; E78.5 Hyperlipidemia, unspecified; M10.9 Gout, unspecified; G47.33 Obstructive sleep apnea (adult) (pediatric); Z79.4 Long term (current) use of insulin; Z79.84 Long term (current) use of oral hypoglycemic drugs; Z88.0 Allergy status to penicillin
CPT/HCPCS: 36415; 36558; 76937; 82947; 85025; 85610; 85730; C1750; C1769; J1644; J1920; J2003; J2250; J3010; J3373

== ENCOUNTER 2024-12-25 11:03 | Outpatient (AMB) | payer MEDICAID, SELFPAY ==
--- NOTE | 2024-12-25 11:19 | HO.NEPHOV ---
Vital Signs 12/25/24 11:20 Height 5 ft 9 in Weight 247 lb BMI 36.5 BP 144/100 H Blood Pressure Location Rt brachial Position Sitting Pulse 100 Pulse Source Pulse Oximeter Pulse Oximetry (%) 98 Oxygen Delivery Method Room Air Intake Visit Reasons: 1wk f/u Aoc Operations Intelligence Officer Required: Yes Aoc Operations Intelligence Officer Language: Press Cleaner Services: Aoc Operations Intelligence Officer Present Aoc Operations Intelligence Officer Name: Elvin [phone] Accompanied by: Spouse Allergies Penicillins (PENICILLINS) Allergy (Intermediate, Verified 12/25/24 11:20) RASH, DIFFICULTY BREATHING HPI Comments Details: Darrel is a 54 y/o male with a medical history of longstanding DMII, REGI, HTN, HLD, CVA with hemiparesis (reports in 2019), DM II, REGI, gout, GERD, rheumatoid arthritis and CKD 4 with progressive worsening renal function. patient has elevated urine protein/creatinine ratio of ~14 .renal ultrasound from 03/25 unremarkable- bilateral pelviectasis without trevor hydronephrosis. serum immunofixation with faint IgG kappa monoclonal band present. He denies any uremic symptoms but renal function has progressed to ESRD. He had brief dialysis at recent stay at [facility], pt preferred to work with his primary safety council director and so was discharge with close follow up with Dr Rodriguez. Plan to start dialysis tomorrow as outpatient. Patient is here with his daughter. He had left permcath placed 12/23. He has a chair for second shift TTS starting tomorrow at [facility] in [place], arrival time 11:30 per case loader operator, Berny. Patient states he feels well. He denies chest pain, shortness of breath, abdominal/flank pain, muscle cramping, tremors/ticks, pruritus, confusion/brain fog, nausea/vomiting. He states he continues to make urine and feels his urine output volume is normal. He states he has some mild LE edema, but reports this remains stable. [facility] Medical History HTN (hypertension) Leukocytosis Memory loss Obesity Idiopathic gout of multiple sites GERD (gastroesophageal reflux disease) Hypertensive chronic kidney disease Secondary hyperparathyroidism, renal Sleep apnea Type 2 diabetes mellitus Schizoaffective disorder Chronic pain syndrome Diabetic polyneuropathy Gout Surgical History History of esophagogastroduodenoscopy (EGD) H/O colonoscopy Family History Father Cancer Diabetes Mother Cancer Diabetes Colon cancer Family/Other Cancer Diabetes Social History Household Members: Spouse Housing: House Are you a primary healthcare market consultant to a significant other at home: No Do you presently have visiting nurse or other home services: No Alcohol intake: never Patient Tobacco Use Status: Never used Tobacco service: No Review of Systems Const All systems reviewed & are unremarkable except as noted in HPI and below Physical Exam Vital Signs: Last Vital Signs Pulse 100 12/25/24 11:20 BP 144/100 H 12/25/24 11:20 Pulse Ox 98 12/25/24 11:20 Oxygen Delivery Method Room Air 12/25/24 11:20 BMI result Body Mass Index 36.5 Const General: comfortable, no acute distress, alert and awake Neck Neck: Yes no JVD Resp Effort & Inspection: normal respiratory effort and able to speak in complete sentences Auscultation: clear to auscultation bilaterally Cardio Jugular venous distension: no JVD Rate: regular rate Rhythm: regular rhythm Heart sounds: S1 normal heart sound present and S2 normal heart sound present GI Palpation (GI): Soft to palpation and nontender General: Yes no CVA tenderness Back/Spine/Pelvis Back: no CVA tenderness Neuro Other: no tremor. no asterixis. Extrem General: Yes edema (trace edema BLE, pitting. ) Results Reviewed Nephrology Results: Hgb, (14.0-18.0) 12.7 g/dl L 12/23/24 WBC, (4.8-10.8) 11.8 X10*3/uL H 12/23/24 Plt Count, (160-400) 366 X10*3/uL 12/23/24 Sodium, (135-145) 146 mmol/L H 12/18/24 Potassium, (3.3-5.1) 4.5 mmol/L 12/18/24 Chloride, (96-108) 109 mmol/L H 12/18/24 Carbon Dioxide, (22-29) 21 mmol/L L 12/18/24 BUN, (9-16) 109 mg/dL H 12/18/24 Creatinine, (0.5-1.4) 10.22 mg/dL H* 12/18/24 Calcium, (8.4-10.2) 8.2 mg/dL L 11/12/24 Urine Protein, (Neg-Trace) >=1000 (4+) mg/dL H 11/12/24 Renal US 03/25/24 Assessment & Plan Assessment & Plan (1) HTN (hypertension): Code(s): I10 - Essential (primary) hypertension Category: Medical Qualifiers: Hypertension type: primary hypertension Qualified Code(s): I10 - Essential (primary) hypertension (2) Secondary hyperparathyroidism: Code(s): N25.81 - Secondary hyperparathyroidism of renal origin Category: Medical (3) CKD stage 5 due to type 2 diabetes mellitus: Code(s): E11.22 - Type 2 diabetes mellitus with diabetic chronic kidney disease; N18.5 - Chronic kidney disease, stage 5 Category: Medical (4) Diabetic nephropathy associated with type 2 diabetes mellitus: Code(s): E11.21 - Type 2 diabetes mellitus with diabetic nephropathy Category: Medical (5) ESRD needing dialysis: Code(s): N18.6 - End stage renal disease; Z99.2 - Dependence on renal dialysis Category: Medical Plan CKD due to diabetic nephropathy which has progressed and will require dialysis. Has a faint monoclonal band present on workup. He is on Jardiance and lasix. He will not tolerate CALEB/ARB for proteinuria with his current GFR and hyperkalemia. On Vitamin D. Blood pressures improved since re-starting medications; will hold off on increasing antihypertensive regimen as patient is slightly hypervolemic and starting dialysis tomorrow. He is not currently displaying any uremic symptoms and appears stable. Patient was given information regarding address, time and phone number of dialysis unit. Dr Rodriguez will meet him there tomorrow. Patient and daughter are agreeable to plan. Discussed with Dr Rodriguez. 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
[2024-12-25 11:20] VITALS: BP 144/100; PULSE 100; O2SAT 98; BMI 36.5
--- OUTSIDE RECORDS SUMMARY | 2024-12-25 12:27 | XMS_ITS | Encounter Summary ---
Author Organization [employer] Address [address] [place] [address] Care Team Providers Care Instructor Extension Work Name Role Phone Katrin Santoyo MD Primary Care Pro vider Edison Vieira MD Unavailable [phone] Joe Devi MD Unavailable [phone] Chuy Mcmanus MD Unavailable Sveta aLzaro RN Unavailable Leslie Kline Unavailable Reason for Visit * Reason Comments Med Refill Encounter Details Date Type Department Care Team (Late st Contact Info) Description 02/11/2024 Refill [facility] [address] [place] [address] Moriah Herbert FNP [address] [place] [address] Chronic radicular lumbar pain Social History Tobacco [...] the past 12 months, has t he [employer], gas, oil or water [employer] threatened to shut off services in your [...] Care Team (Late st Contact Info) Description 12/26/2024 10:00 AM EDT Office Visit [address] [address] Katrin Santoyo MD [address] [place] [id number] 01/07/2025 2:15 PM EDT Office Visit [facility] [address] [place] [id number] Katrin Santoyo MD [address] [place] [phone] documented as of this encounter Goals Goal Patient Goal Type Associated Problems Recent Progress Patient-Stated? Author Blood Pressure < 140/90 Blood Pressure 140/100(11/22 11:10 AM EDT) No Eve Guzman PharmD Hemoglobin A1c < 7 Result Component 9(11/01/2024 1:35 PM EDT) No Eve Guzman PharmD documented as of this encounter Visit Diagnoses Diagnosis Chronic radicular lumbar pain documented in this encounter Additional Health Concerns Assessment Noted Time PHQ-9 Depression Total Score: 4 10/31/19 24 10:32 AM EDT documented as of this encounter Care Teams Instructor Extension Work Relationship Specialty Start Date End Date Katrin Santoyo MD [address] [place] [address] PCP - General Internal Medicine 12/13/22 Edison Vieira MD [address] [place] [address] Pulmonary Disease 04/07/24 Joe Devi MD [address] [place] [address] 3rd [place] [address] Gastroenterology 04/07/24 Chuy Mcmanus MD [address] [place] [phone] Bariatrics 09/25/24 Sveta Lazaro, CASIE [address] [place] [phone] Registered Nurse Family Medicine 11/29/24 Leslie Kline 11/29/24 Carito Roche DNP [address] [facility], [address] [place] [address] Nephrology 04/07/24 [employer] 04/11/24 12/18/24 [facility] 12/14/24 documented as of this encounter
--- OUTSIDE RECORDS SUMMARY | 2024-12-25 12:27 | XMS_ITS | Encounter Summary ---
Author Organization [facility] [facility] Address [address] [place] [address] Care Team Providers Care Border Measurer And Cutter Name Role Phone Deep Pruitt APRN Primary Care Provider Reason for Visit * Reason Comments Medication Refill Encounter Details Date Type Department Care Team ([facility] st Contact Info) Description 06/07/2022 Refill [facility] [address] [place], [place] [phone] Deep Pruitt APRN [address] [place] [address] Medication Refill Social History Tobacco [...] you attend chur ch or jainism services? More than 4 times per year [...] Date Recorded PHQ-2 Total Score 2 02/17/2022 [facility] [...]
--- OUTSIDE RECORDS SUMMARY | 2024-12-25 12:27 | XMS_ITS | Clinical Summary ---
Author Organization [facility] Address [address] [facility] [address] [place] [address] Phone Care Team Providers Care Six Sigma Black Trainer Name Role Phone Katrin Brumfield Primary Care [...] tablet 3 4 Active ergocalciferol 1.25 MG (02251 UT) capsule Take 1 capsule (50,000 Units [...] (01/25/2023): information and pathology of colonospcy in [facility] 09-09-2020 note Asthma 01/06/2023 01/25/2023 Arthritis [...] AM with Arben Fountain DPM at the [facility] -Will f/u with Pt in [...] (see MRI of Brain from 2017 under [facility] -Significant deficits on neurologic exam Memory loss and Left handed weakness -Imaging and prior evaluation -Current blood thinning agents is aspirin -Potential details to include, when relevant: poor GAIT, uses a walker to get around -How the diagnosis was made: Pt lived in [facility] at the time, Under [facility] in [facility] see specific file at specific date [id number] Image MRI Result [facility] - MRI BRAIN CVA -09/25/2016 [id number] Image Evaluation [facility]- Left handed weakness note - [...] 2019, the Pt needs to call the [facility] [address] [place] [address] Diabetic foot 02/07/2019 01/25/2023 01/25/2023 Overview (01/25/2023): Last Assessment & Plan: The Pt continues to deal with bilateral foot pain and wears a pair of Diabetic shoes with specification ordered by his Floor Sweeper Doctor Patient encounter status 02/07/2019 01/25/2023 Overview [...] will be called biweekly by the [facility] Nurse to review his FBS [...] medications -He has been following with the [facility] and reports taking all of [...] 03/24/2022, 01/21/2021 [place] Care Teams Six Sigma Black Trainer Relationship Specialty Start Date End Date Katrin Brumfield [address] [place] [address] [phone] PCP - General 04/17/23
--- OUTSIDE RECORDS SUMMARY | 2024-12-25 12:27 | XMS_ITS | Clinical Summary ---
Author Organization [address] [facility] Address [address] [place] [address] Phone Care Team Providers Care Home Sales Service Professional Name Role Phone Physician, No Pcp Primary [...] History Medical History Date Comments Diabetes mellitus ([facility] V24, [facility] V28) Hypertension REGI (obstructive sleep apnea) Social [...] PM EDT Office Visit [facility] [place] [address] [place] [phone] Jan Amor, DPChristina [address] [address] Health Maintenance Due Date Last Done Comments [...] * Annual BMP Blood Test (11/07/2023) Pathologist [facility] Annual BMP Blood Test Abstracted Historical Provider HEALTH MAINTENANCE Final Result * Lipid panel (09/19/2023) Triglycerides 0 mg/dL Comment:No interpretation Cholesterol 0 mg/dL Comment:No interpretation HDL 0 mg/dL Comment:No interpretation LDL Cholesterol 0 mg/dL Comment:No interpretation Blood Venous blood specimen / Unknown Historical Provider LAB BLOOD ORDERABLES Fauzia l Result * Urine Albumin Creatinine Ratio (05/19/2023) [facility] Urine Albumin Creatinine Ratio Abstracted [facility] Provider HEALTH MAINTENANCE Final Result * Hemoglobin A1c (05/17/2023) [facility] Hemoglobin A1C 0.0 % Comment:No interpretation Blood Venous blood specimen / Unknown [facility] Provider LAB BLOOD ORDERABLES Fauzia l Result * HIV Screening (12/06/2022) [facility] HIV Screening Abstracted Result [facility] Provider HEALTH MAINTENANCE Final Result * Hepatitis C Screening (12/06/2022) [facility] Hepatitis C Screening Abstracted [facility] Provider HEALTH MAINTENANCE Final Result from Last 3 Months or Most Recently Relevant to Health Maintenance [place] Care Teams Home Sales Service Professional Relationship Specialty Start Date End Date Physician, No Pcp PCP - General 04/08/24
== END 2024-12-25 11:50 | disposition home or self-care (01) ==
LOC: HO.HKA 11:04
PROVIDERS: PCP Student in an Organized Health Care Education/Training Program; Visit Provider Nurse Practitioner Family
DX: I12.0 Hypertensive chronic kidney disease with stage 5 chronic kidney disease or end stage renal disease (principal); N25.81 Secondary hyperparathyroidism of renal origin; E11.22 Type 2 diabetes mellitus with diabetic chronic kidney disease; N18.5 Chronic kidney disease, stage 5; E11.21 Type 2 diabetes mellitus with diabetic nephropathy; N18.6 End stage renal disease; Z99.2 Dependence on renal dialysis
CPT/HCPCS: 99213

== ENCOUNTER → 2024-12-25 11:03 | Outpatient (BNVA) | payer MEDICAID, SELFPAY | PROVIDERS: PCP Student in an Organized Health Care Education/Training Program; Visit Provider Nurse Practitioner Family | DX: I10 Essential (primary) hypertension (principal); N25.81 Secondary hyperparathyroidism of renal origin; E11.21 Type 2 diabetes mellitus with diabetic nephropathy; N18.6 End stage renal disease; Z99.2 Dependence on renal dialysis | CPT/HCPCS: 99212 ==

== ENCOUNTER → 2025-01-06 23:59 | Outpatient (BNV) | payer MEDICAID, SELFPAY | PROVIDERS: Visit Provider Internal Medicine Nephrology | DX: N18.6 End stage renal disease (principal) | CPT/HCPCS: 90961 ==

== ENCOUNTER 2025-01-14 13:46 | Outpatient (REF) | payer MEDICAID, SELFPAY ==
--- NOTE | ~2025-01-14 | XR_ITS ---
EXAMINATION: XR HIP, LEFT CLINICAL INFORMATION: pain after fall COMPARISON: None available. TECHNIQUE: AP and frog-leg lateral views of the left hip. FINDINGS: Moderate roof osteophyte is present involving acetabulum. There is subtle axial joint space narrowing. Minimal femoral head marginal osteophytes are present. Severe vascular calcifications are visible in the femoral arteries. Focal sclerotic lesion cephalad to the left acetabulum is most consistent with a benign bone island. XR/XR hip LT min 2V IMPRESSION: Mild osteoarthritis. Left hip. Electronically signed by: Kin Purdy MD 01/14/2025 02:43 PM EDT
--- NOTE | ~2025-01-14 | XR_ITS ---
EXAMINATION: XR KNEE, RIGHT CLINICAL INFORMATION: pain after fall COMPARISON: None available. TECHNIQUE: Four views of the right knee. FINDINGS: Severe arterial vascular opacifications are present. There is no joint effusion. Joint spaces are preserved. Intercondylar tubercles are peaked. Minute marginal osteophyte is present at superior pole of patella and possibly the lateral tibial plateau. No acute abnormality is evident. XR/XR knee RT 4V IMPRESSION: Minimal degenerative changes. Severe vascular calcifications. Electronically signed by: Kin Purdy MD 01/14/2025 02:42 PM EDT
--- NOTE | ~2025-01-14 | XR_ITS ---
EXAMINATION: XR LUMBOSACRAL SPINE CLINICAL INFORMATION: pain after fall COMPARISON: None available. TECHNIQUE: Three views of the lumbosacral spine. FINDINGS: Moderate vascular opacification is visible in the abdominal aorta. There are 5 nonrib-bearing lumbar segment. Vertebral body height and alignment is preserved. There is mild disc space narrowing and osteophytes at T11-12. Disc spaces are preserved otherwise. XR/XR lumbar spine 2-3V IMPRESSION: No acute abnormality. Degenerative disc disease at T11-12. Electronically signed by: Kin Purdy MD 01/14/2025 02:45 PM EDT
--- OUTSIDE RECORDS SUMMARY | 2025-01-14 13:20 | XMS_ITS | Encounter Summary ---
Author Organization [employer] Address [address] [place] [address] Care Team Providers Care Sampling Theory Teacher Name Role Phone Katrin Santoyo MD Primary Care Pro vider Edison Vieira MD Unavailable [phone] Joe Devi MD Unavailable [phone] Chuy Mcmanus MD Unavailable Sveta Lazaro RN Unavailable [phone] Leslie Kline Unavailable Reason for Referral * Consultation (Routine) - Pending Review Specialty Diagnoses / Procedures Referred By Jace t Referred To Contact Physical Therapy Diagnoses Pain of left hip Acute pain of right knee Katrin Leroy MD [address] [place] [address] Phone: tel: fax: Referral ID Status Reason Start Date Expiration Date Visits Requested Visits Authorized [id number] Pending Review Specialty Services Required 01/14/2025 01/14/2026 1 1 Reason for Visit * Reason Comments Leg Pain Encounter Details Date Type Department Care Team (Late st Contact Info) Description 01/14/2025 1:20 PM EDT Office Visit [facility] [address] [place] [address] [phone] Katrin Leroy MD [address] [place] [address] [phone] Acute bilateral low back pain without sciatica; Pain of left hip; Acute pain of right knee Social History Tobacco Use Types Packs/Day Years [...] housing situation today? I have madelynmamadou schmitz 11/01/[address] you [...] Sign Reading Time Taken Comments Blood Pressure 149/75 01/14/2025 1:05 PM EDT Pulse 103 01/14/2025 1:05 PM EDT Temperature 36.7 C (98 F) 01/14/2025 1:05 PM EDT Respiratory Rate 18 01/14/2025 1:05 PM EDT Oxygen Saturation 98% 01/14/2025 1:05 PM EDT Inhaled Oxygen Concentration - - Weight 103 kg (226 lb 9.6 oz) 01/14/2025 1:05 PM EDT Height - - Body Mass Index 34.45 11/22/2024 11:10 AM EDT documented in this encounter Progress Notes * Katrin Kong MD - 01/14/2025 1:20 PM EDT SUBJECTIVE: Darrel Cortes is a 54 y.o. year old male who presents for acute visit . 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) Benign tubular adenoma of large intestine Chronic post-traumatic stress disorder (PTSD) Constipation Elevated parathyroid hormone Gastroesophageal reflux disease Hepatic steatosis Hyperlipidemia associated with type 2 diabetes mellitus (CMS/HCC) Microalbuminuric diabetic nephropathy (CMS/HCC) Need for home health care Neuropathy due to type 2 diabetes mellitus (CMS/HCC) Obstructive sleep apnea Ventral hernia Vitamin D deficiency Moderate persistent asthma Health care maintenance Bilateral leg edema Gout Obesity with serious comorbidity Primary hypertension Hemorrhoids Chronic radicular lumbar pain Cholelithiasis Memory loss Leukocytosis Adrenal adenoma, right Diabetes mellitus, labile (CMS/HCC) Alkaline phosphatase elevation Secondary dental caries 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 HENT: Negative. Respiratory: Negative. Cardiovascular: Negative. Musculoskeletal: Positive for arthralgias, back pain and myalgias. OBJECTIVE: Vitals: 01/14/25 1305 BP: (!) 149/75 BP Location: Right arm Patient Position: Sitting BP Cuff Size: Adult Pulse: 103 Resp: 18 Temp: 98 ??F (36.7 ??C) TempSrc: Temporal SpO2: 98% Weight: 226 lb 9.6 oz (103 kg) Physical Exam Constitutional: Appearance: Normal appearance. Cardiovascular: Rate and Rhythm: Normal rate and regular rhythm. Pulmonary: Effort: Pulmonary effort is normal. Breath sounds: Normal breath sounds. Abdominal: General: Abdomen is flat. Palpations: Abdomen is soft. Musculoskeletal: Lumbar back: Spasms and tenderness present. Left hip: Tenderness present. Right knee: Crepitus present. Tenderness present. Neurological: Mental Status: He is alert. Follow Up: No follow-ups on file. Medications Ordered Prior to Encounter[3] Problem List Items Addressed This Visit Acute bilateral low back pain without sciatica Apply heat on affected area I prescribed acetaminophen as needed X-rays ordered patient will be contacted with results Continue with physical therapy Relevant Medications acetaminophen (Tylenol Extra Strength) 500 MG tablet Other Relevant Orders XR Lumbar Spine 2-3 Views (Completed) Pain of left hip X-ray ordered patient will be contacted with results Relevant Medications acetaminophen (Tylenol Extra Strength) 500 MG tablet Other Relevant Orders XR Hip 2 or 3 Views Left (Completed) Referral to Physical Therapy Acute pain of right knee X-ray ordered patient will be contacted with results Relevant Medications acetaminophen (Tylenol Extra Strength) 500 MG tablet Other Relevant Orders XR Knee 4+ Views Right (Completed) Referral to Physical Therapy [1] Patient Active Problem List Diagnosis 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) Benign tubular adenoma of large intestine Chronic post-traumatic stress disorder (PTSD) Constipation Elevated parathyroid hormone Gastroesophageal reflux disease Hepatic steatosis Hyperlipidemia associated with type 2 diabetes mellitus (CMS/HCC) Microalbuminuric diabetic nephropathy (CMS/HCC) Need for home health care Neuropathy due to type 2 diabetes mellitus (CMS/HCC) Obstructive sleep apnea Ventral hernia Vitamin D deficiency Moderate persistent asthma Health care maintenance Bilateral leg edema Gout Obesity with serious comorbidity Primary hypertension Hemorrhoids Chronic radicular lumbar pain Cholelithiasis Memory loss Leukocytosis Adrenal adenoma, right Diabetes mellitus, labile (CMS/HCC) Alkaline phosphatase elevation Secondary dental caries 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 Right foot pain Chronic respiratory failure with hypoxia (CMS/HCC) On home oxygen therapy Long-term current use of opiate analgesic Lipoma Chronic pancreatitis, unspecified pancreatitis type (CMS/HCC) Skin pruritus ESRD (end stage renal disease) on dialysis (CMS/HCC) Moderate cognitive impairment Acute bilateral low back pain without sciatica Pain of left hip Acute pain of right knee [2] Family History Problem Relation Name Age of Onset Colon cancer Mother Anxiety disorder Mother Colon cancer Father Breast cancer Sister Colon cancer Other niece [3] Current Outpatient Medications on File Prior to [...] ammonium lactate (Lac-Hydrin) 12 % lotion Apply to feet every once daily and wear socks Aspirin Low Dose 81 MG chewable tablet CHEW 1 TABLET BY MOUTH ONCE DAILY EVERY MORNING 90 tablet 1 atorvastatin (Lipitor) 80 MG tablet TAKE 1 TABLET BY MOUTH EVERY DAY 90 tablet 1 B-D UF III MINI PEN NEEDLES 31G X 5 MM [facility] Use as instructed 100 each 11 Blood Glucose Monitoring Suppl (Gigathlete [place] Lite) w/Device kit Use to test blood sugar bid dxdm 1 kit 0 calcitriol (Rocaltrol) 0.25 MCG capsule TAKE 1 CAPSULE BY MOUTH 3 TIMES A WEEK capsaicin (Capzasin-HP) 0.1 % cream Apply thin layer by topical route up to 4 times daily as neededfor pain. 45 g 3 carvedilol (Coreg) 25 MG tablet Take 0.5 tablets by mouth in the morning and 0.5 tablets in the evening. clonazePAM (KlonoPIN) 0.5 MG tablet 1 tab TID Continuous Blood Gluc Sensor (Dexcom G7 Sensor) [facility] D-3-5 125 MCG (5000 UT) capsule Take 1 capsule by mouth Once per day. Diclofenac Sodium 1 % gel APPLY A THIN LAYER (2 GRAMS) TOPICALLY THREE TIMES DAILY NEEDED FOR PAIN 100 g 1 divalproex (Depakote ER) 500 MG 24 hr tablet Take 2 tablets by mouth at bedtime DULoxetine (Cymbalta) [address] capsule Take 1 capsule by mouth Once per day. ezetimibe (Zetia) 10 MG tablet TAKE 1 TABLET BY MOUTH EVERY DAY IN THE MORNING 90 tablet 1 febuxostat (Uloric) 40 MG tablet TAKE 1 TABLET BY MOUTH DAILY 90 tablet 1 FreeStyle lancets 1 each by Other route before breakfast, before lunch, before evening meal, and atbedtime. Use bid, dx type 2 diabetes 100 each 11 FREESTYLE LITE test strip Use to test blood sugar as directed 100 each 11 FT Lubricant Eye Drops 0.5 % ophthalmic solution INSTILL 1 DROP IN EACH EYE NEEDED DRY EYES 30 each 1 gabapentin (Neurontin) 100 MG capsule Take 2 capsules (200 mg) by mouth Once per day. 180 capsule 0 glucose 4 g chewable tablet Chew 4 tablets (16 g) if needed for low blood sugar. 50 tablet 2 insulin lispro (HumaLOG) 100 UNIT/ML injection INYECTAR 2 A 10 UNIDADES DEBAJO DE LA PIEL ESTER VECES AL LUZ MARIA ANTES DE LAS COMIDAS DE ACUERDO A LA ESCALA DE INSULINA Ketotifen Fumarate 0.035 % solution PLACE 1 DROP INTO THE AFFECTED EYE(S) TWICE DAILY NEEDED FORALLERGIES 5 mL 1 Lantus SoloStar 100 UNIT/ML pen Inject 20 Units under the skin at bedtime. lidocaine (Lidoderm) 5 % patch Apply 1 patch topically Once per day. 12 hours on and 12 hours off Nebulizers [facility] Use nebulizer as instructed 1 each 0 omega-3 acid ethyl esters (Lovaza) 1 g capsule Take 2 capsules (2 g) by mouth 2 times daily. 120 capsule 11 Respiratory Therapy Supplies (Nebulizer/Tubing/Mouthpiece) kit To be used with Nebulizer 1 kit 0 sodium polystyrene sulfonate (Kayexalate) powder Take 30 g by mouth 1 (one) time. Mix with water and drink once weeklyy Spiriva Respimat 1.25 MCG/ACT inhaler INHALE 2 PUFFS BY MOUTH EVERY DAY IN THE MORNING, RINSE MOUTHAFTER USING. 4 g 3 SSD 1 % cream Apply 1 Application. topically Once per day. torsemide (Demadex) 100 MG tablet Take 1 tablet by mouth 2 times daily. traMADol (Ultram) 50 MG tablet Take 50 mg by mouth every 12 (twelve) hours if needed for severe pain. traZODone (Desyrel) 150 MG tablet Take 150 mg by mouth at bedtime. triamcinolone (Kenalog) 0.1 % cream Apply topically if needed in the morning and at bedtime (pain and swelling). 30 g 0 urea (Carmol) 10 % cream Apply topically 2 times daily. 453 g 1 Ventolin HFA 108 (90 Base) MCG/ACT inhaler Inhale 2 puffs every 4 (four) hours if needed for wheezing. 18 g 3 ziprasidone (Geodon) 80 MG capsule Take 1 capsule by mouth at bedtime. No current facility-administered medications on file prior to visit. documented in this encounter Miscellaneous Notes * Assessment & Plan Note - Katrin Kong MD - 01/14/2025 3:15 PM EDT Associated Problem(s): Pain of left hip X-ray ordered patient will be contacted with results * Assessment & Plan Note - Katrin Kong MD - 01/14/2025 3:15 PM EDT Associated Problem(s): Acute pain of right knee X-ray ordered patient will be contacted with results * Assessment & Plan Note - Katrin Kong MD - 01/14/2025 3:15 PM EDT Associated Problem(s): Acute bilateral low back pain without sciatica Apply heat on affected area I prescribed acetaminophen as needed X-rays ordered patient will be contacted with results Continue with physical therapy documented in this encounter Plan of Treatment Scheduled Referrals Name Type Priority Associated Diagnoses Orde r Schedule Referral to Physical Therapy Outpatient Referral Routine Pain of left hip Acute pain of right knee Expected: 01/14/2025 (Approximate), Expires: 01/14/2026 documented as of this encounter Goals Goal Patient Goal Type Associated Problems Recent Progress Patient-Stated? Author Blood Pressure < 140/90 Blood Pressure 149/75(2024 1:05 PM EDT) No Piers-Gambl e, Eve, PharmD Hemoglobin A1c < 7 Result Component 9(11/01/2024 1:35 PM EDT) No Piers-Gambl e, Eve, PharmD documented as of this encounter Procedures Procedure Name Priority Date/Time Associated Diagnosis Comments XR KNEE 4+ VIEWS RIGHT Routine 01/14/2025 2:15 PM EDT Acute pain of right knee XR HIP 2 OR 3 VIEWS LEFT Routine 01/14/2025 2:10 PM EDT Pain of left hip XR LUMBAR SPINE 2-3 VIEWS Routine 01/14/2025 2:09 PM EDT Acute bilateral low back pain without sciatica documented in this encounter Results * XR Knee 4+ Views Right (01/14/2025 2:15 PM EDT) Anatomical Region Laterality Modality Lower Extremities, Knee Right [facility] 01/14/2025 2:15 PM EDT Narrative 01/14/2025 2:44 [place] [address] XRay Report Signed Patient: Darrel Hagan MR#: [id number] : 1970 Acct:[id number] Age/Sex: 54 / M ADM Date: 01/14/25 Loc: HO.HHCX Attending Dr: Katrin Kong MD Ordering Physician: Katrin Leroy MD Date of Service: 01/14/25 Procedure(s): XR knee RT 4V Accession Number(s): [id number] cc: Katrin Leroy MD Reason for Exam: pain after fall EXAMINATION: XR KNEE, RIGHT CLINICAL INFORMATION: pain after fall COMPARISON: None available. TECHNIQUE: Four views of the right knee. FINDINGS: Severe arterial vascular opacifications are present. There is no joint effusion. Joint spaces are preserved. Intercondylar tubercles are peaked. Minute marginal osteophyte is present at superior pole of patella and possibly the lateral tibial plateau. No acute abnormality is evident. XR/XR knee RT 4V IMPRESSION: Minimal degenerative changes. Severe vascular calcifications. Electronically signed by: Kin Purdy MD 01/14/2025 02:42 PM EDT RP Dictated By: Kin Purdy MD Signed By: <Electronically signed by Kin Purdy MD in OV> 01/14/25 1442 DD/ 1415 TD/TT: 01/14/25 1430 Mountain Services Manager: Procedure Note Donotuseinterpreter, Image - 01/14/2025 [place] [address] XRay Report Signed Patient: Darrel HaganMR#: [id number] : 1970Acct:[id number] Age/Sex: 54 / MADM Date: 01/14/25 Loc: .HHCX Attending Dr: Katrin Kong MD Ordering Physician: Katrin Leroy MD Date of Service: 01/14/25 Procedure(s): XR knee RT 4V Accession Number(s): [id number] cc: Katrin Leroy MD Reason for Exam: pain after fall EXAMINATION: XR KNEE, RIGHT CLINICAL INFORMATION: pain after fall COMPARISON: None available. TECHNIQUE: Four views of the right knee. FINDINGS: Severe arterial vascular opacifications are present. There is no joint effusion. Joint spaces are preserved. Intercondylar tubercles are peaked. Minute marginal osteophyte is present at superior pole of patella and possibly the lateral tibial plateau. No acute abnormality is evident. XR/XR knee RT 4V IMPRESSION: Minimal degenerative changes. Severe vascular calcifications. Electronically signed by: Kin Purdy MD 01/14/2025 02:42 PM EDT RP Dictated By: Kin Purdy MD Signed By: <Electronically signed by Kin Purdy MD in OV> 01/14/25 1442 DD/ 1415 TD/TT: 01/14/25 1430 Mountain Services Manager: Katrin Kong MD IMG XR PROCEDURES Fin al Result * XR Hip 2 or 3 Views Left (01/14/2025 2:10 PM EDT) Anatomical Region Laterality Modality Lower Extremities, Hip Left Radiograp hic Imaging 01/14/2025 2:10 PM EDT Narrative 01/14/2025 2:47 PM EDT [address] [address] XRay Report Signed Patient: Darrel Hagan MR#: [id number] : 1970 Acct:[id number] Age/Sex: 54 / M ADM Date: 01/14/25 Loc: HO.HHCX Attending Dr: Katrin Kong MD Ordering Physician: Katrin Leroy MD Date of Service: 01/14/25 Procedure(s): XR hip LT min 2V Accession Number(s): [id number] cc: Katrin Leroy MD Reason for Exam: pain after fall EXAMINATION: XR HIP, LEFT CLINICAL INFORMATION: pain after fall COMPARISON: None available. TECHNIQUE: AP and frog-leg lateral views of the left hip. FINDINGS: Moderate roof osteophyte is present involving acetabulum. There is subtle axial joint space narrowing. Minimal femoral head marginal osteophytes are present. Severe vascular calcifications are visible in the femoral arteries. Focal sclerotic lesion cephalad to the left acetabulum is most consistent with a benign bone island. XR/XR hip LT min 2V IMPRESSION: Mild osteoarthritis. Left hip. Electronically signed by: Kin Purdy MD 01/14/2025 02:43 PM EDT RP Dictated By: Kin Purdy MD Signed By: <Electronically signed by Kin Purdy MD in OV> 01/14/25 1443 DD/ 1410 TD/TT: 01/14/25 1430 Mountain Services Manager: Procedure Note Donotuseinterpreter, Image - 01/14/2025 [facility] [address] [place] [address] XRay Report Signed Patient: Darrel HaganMR#: [id number] : 1970Acct:[id number] Age/Sex: 54 / MADM Date: 01/14/25 Loc: HO.HHCX Attending Dr: Katrin Kong MD Ordering Physician: Katrin Leroy MD Date of Service: 01/14/25 Procedure(s): XR hip LT min 2V Accession Number(s): [id number] cc: Katrin Leroy MD Reason for Exam: pain after fall EXAMINATION: XR HIP, LEFT CLINICAL INFORMATION: pain after fall COMPARISON: None available. TECHNIQUE: AP and frog-leg lateral views of the left hip. FINDINGS: Moderate roof osteophyte is present involving acetabulum. There is subtle axial joint space narrowing. Minimal femoral head marginal osteophytes are present. Severe vascular calcifications are visible in the femoral arteries. Focal sclerotic lesion cephalad to the left acetabulum is most consistent with a benign bone island. XR/XR hip LT min 2V IMPRESSION: Mild osteoarthritis. Left hip. Electronically signed by: Kni Purdy MD 01/14/2025 02:43 PM EDT Dictated By: Kin Purdy MD Signed By: <Electronically signed by Kin Purdy MD in OV> 01/14/25 1443 DD/ 1410 TD/TT: 01/14/25 1430 Mountain Services Manager: us Katrin Kong MD IMG XR PROCEDURES Fin al Result * XR Lumbar Spine 2-3 Views (01/14/2025 2:09 PM EDT) Anatomical Region Laterality Modality Spine, L-spine Radiographic Cierra ging 01/14/2025 2:09 PM EDT Narrative 01/14/2025 2:48 PM EDT [address] XRay Report Signed Patient: Darrel Hagan MR#: [id number] : 1970 Acct:[id number] Age/Sex: 54 / M ADM Date: 01/14/25 Loc: HOEDWIGECX Attending Dr: Katrin Kong MD Ordering Physician: Katrin Leroy MD Date of Service: 01/14/25 Procedure(s): XR lumbar spine 2-3V Accession Number(s): [id number] cc: Katrin Leroy MD Reason for Exam: pain after fall EXAMINATION: XR LUMBOSACRAL SPINE CLINICAL INFORMATION: pain after fall COMPARISON: None available. TECHNIQUE: Three views of the lumbosacral spine. FINDINGS: Moderate vascular opacification is visible in the abdominal aorta. There are 5 nonrib-bearing lumbar segment. Vertebral body height and alignment is preserved. There is mild disc space narrowing and osteophytes at T11-12. Disc spaces are preserved otherwise. XR/XR lumbar spine 2-3V IMPRESSION: No acute abnormality. Degenerative disc disease at T11-12. Electronically signed by: Kin Purdy MD 01/14/2025 02:45 PM EDT Dictated By: Kin Purdy MD Signed By: <Electronically signed by Kin Purdy MD in OV> 01/14/25 1445 DD/ 1409 TD/TT: 01/14/25 1430 Mountain Services Manager: Procedure Note Donotuseinterpreter, Image - 01/14/[address] [address] XRay Report Signed Patient: Darrel HaganMR#: [id number] : 1970Acct:[id number] Age/Sex: 54 / MADM Date: 01/14/25 Loc: DEONTECEloisa Attending Dr: Katrin Kong MD Ordering Physician: Katrin Leroy MD Date of Service: 01/14/25 Procedure(s): XR lumbar spine 2-3V Accession Number(s): [id number] cc: Katrin Leroy MD Reason for Exam: pain after fall EXAMINATION: XR LUMBOSACRAL SPINE CLINICAL INFORMATION: pain after fall COMPARISON: None available. TECHNIQUE: Three views of the lumbosacral spine. FINDINGS: Moderate vascular opacification is visible in the abdominal aorta. There are 5 nonrib-bearing lumbar segment. Vertebral body height and alignment is preserved. There is mild disc space narrowing and osteophytes at T11-12. Disc spaces are preserved otherwise. XR/XR lumbar spine 2-3V IMPRESSION: No acute abnormality. Degenerative disc disease at T11-12. Electronically signed by: Kin Purdy MD 01/14/2025 02:45 PM EDT RP Dictated By: Kin Purdy MD Signed By: <Electronically signed by Kin Purdy MD in OV> 01/14/25 1445 DD/ 1409 TD/TT: 01/14/25 1430 Mountain Services Manager: Katrin Kong MD IMG XR PROCEDURES Fin al Result documented in this encounter Visit Diagnoses Diagnosis Acute bilateral low back pain without sciatica Pain of left hip Acute pain of right knee documented in this encounter Additional Health Concerns Assessment Noted Time PHQ-9 Depression Total Score: 21 025 2:47 PM EDT documented as of this encounter Care Teams Sampling Theory Teacher Relationship Specialty Start Date End Date Katrin Santoyo MD [address] [place] [address] PCP - General Internal Medicine 12/13/22 Edison Vieira MD [address] [place] [address] Pulmonary Disease 04/07/24 Joe Devi MD [address] [place] [address] 3rd [place] [address] Gastroenterology 04/07/24 Chuy Mcmanus MD [address] [place] [address] [place] [address] Bariatrics 09/25/24 Sveta Lazaro RN [address] [place] [address] Registered Nurse Family Medicine 11/29/24 Leslie Kline 11/29/24 Carito Roche DNP [address] [place] [address] Nephrology 04/07/24 [facility] 12/14/24 documented as of this encounter
--- OUTSIDE RECORDS SUMMARY | 2025-01-14 16:25 | XMS_ITS | Encounter Summary ---
Author Organization [facility] Address [address] [place] [address] Care Team Providers Care Ventilator Specialist Name Role Phone Deep Pruitt APRN Primary Care Provider [phone] Reason for Visit * Reason Comments Other Encounter Details Date Type Department Care Team ([facility] Contact Info) Description 05/19/2020 Telephone [facility] [address] [place] [address] Deep Pruitt APRN [address] [place] [address] Other Social History Tobacco Use [...] AM EST documented as of this encounter Functional Status documented as of this encounter Miscellaneous Notes [...] to his gout, call back number is [phone] documented in this encounter Plan of Treatment [...] documented as of this encounter Care Teams Ventilator Specialist Relationship Specialty Start Date End Date Deep Pruitt APRN PCP - General 05/22/19 documented as of this encounter
--- OUTSIDE RECORDS SUMMARY | 2025-01-14 16:25 | XMS_ITS | Encounter Summary ---
Author Organization [facility] Address [address] [place] [address] Care Team Providers Care Quality Assurance Auditor Name Role Phone Deep Pruitt APRN Primary Care Provider Reason for Visit * Reason Comments Medication Refill Encounter Details Date Type Department Care Team (Late st Contact Info) Description 06/19/2020 Refill [facility] [address] [place], [place] [address] Janel Cummins APRN [address] [place] [id number] Medication Refill Social History Tobacco Use Types [...] of this encounter Care Teams Quality Assurance Auditor Relationship Specialty Start Date End Date Deep Pruitt APRN PCP - General 05/22/19 documented as of this encounter
--- OUTSIDE RECORDS SUMMARY | 2025-01-14 16:25 | XMS_ITS | Encounter Summary ---
Author Organization [facility] Address [address] [place] [address] Care Team Providers Care Vamp Cut Out Worker Name Role Phone Deep Pruitt APRN Primary Care Provider Encounter Details Date Type Department Care Team ([facility] st Contact Info) Description 06/13/2020 Scanned Document [facility] [address] [place], [place] [id number] Deep Pruitt APRN [address] [place] [address] Social History Tobacco Use Types [...] Answer Date Recorded PHQ-2 Score 0 03/13/2020 [employer] [place] [facility] Occup[facility] ional [facility] - Occupational Stress [...] documented as of this encounter Care Teams Vamp Cut Out Worker Relationship Specialty Start Date End Date Deep Pruitt APRN PCP - General 05/22/19 documented as of this encounter
--- OUTSIDE RECORDS SUMMARY | 2025-01-14 16:25 | XMS_ITS | Encounter Summary ---
Author Organization [facility] Address [address] [place] [address] Care Team Providers Care Pond Tender Name Role Phone Deep Pruitt APRN Primary Care Provider Reason for Visit * Reason Comments Other Encounter Details Date Type Department Care Team ([facility] Contact Info) Description 05/24/2022 Telephone [facility] [address] [place] [address] Deep Pruitt APRN [address] [place] [phone] Other Social History Tobacco Use Types [...] you attend chur ch or sabianist services? More than 4 times per year [...] Total Score 2 02/17/2022 [facility] - Occupational Stress Questionnaire Answer Date [...] AM EST Patient best call back number [phone]. Patient has an upcoming appt with his [...] documented as of this encounter Care Teams Pond Tender Relationship Specialty Start Date End Date Deep Pruitt APRN PCP - General 05/22/19 documented as of this encounter
--- OUTSIDE RECORDS SUMMARY | 2025-01-14 16:25 | XMS_ITS | Encounter Summary ---
Author Organization [facility] Address [address] [place] [address] Care Team Providers Care Client Care Coordinator Name Role Phone Deep Pruitt APRN Primary Care Provider [phone] Encounter Details Date Type Department Care Team (Late st Contact Info) Description 06/11/[address] [facility] 9 [facility], 2nd floor [facility], [address] [place], [place] [phone] Isha Brown APRN [address] [place] [address] Social History Tobacco Use Types [...] as of this encounter Care Teams Client Care Coordinator Relationship Specialty Start Date End Date Deep Pruitt APRN PCP - General 05/22/19 documented as of this encounter
--- OUTSIDE RECORDS SUMMARY | 2025-01-14 16:25 | XMS_ITS | Encounter Summary ---
Author Organization [facility] Address [address] [place] [address] Care Team Providers Care Energy Conservation Engineer Name Role Phone [place]Deep medina Niko LOPEZ Primary Care Provider Reason for Visit * Reason Comments Medication Refill Encounter Details Date Type Department Care Team ([facility] st Contact Info) Description 07/03/2020 Refill [facility] [address] [facility] [address] [place] [phone] Zena Hines PA [address] [place] [phone] Medication Refill Social History Tobacco Use [...] Answer Date Recorded PHQ-2 Score 2 07/07/2020 [facility] of Occupat ional [...] for Metformin received. Pt was engaging [facility] and continues with PCP. Unclear [...] as of this encounter Care Teams Energy Conservation Engineer Relationship Specialty Start Date End Date Deep Pruitt APRN PCP - General 05/22/19 documented as of this encounter
--- OUTSIDE RECORDS SUMMARY | 2025-01-14 16:25 | XMS_ITS | Encounter Summary ---
Author Organization [facility] Address [address] [place] [address] Care Team Providers Care Surgical Corsetier Name Role Phone Deep Pruitt APRN Primary Care Provider [phone] Reason for Visit * Reason Comments Medication Refill Encounter Details Date Type Department Care Team ([facility] st Contact Info) Description 07/10/2020 Refill [facility] [address] [place] [address] Deep Pruitt APRN [address] [place] [phone] Medication Refill Social History Tobacco Use [...] [facility] of Occupat ional [facility] - Occupational Stress Questionnaire Answer Date Recorded [...] Functional Status documented as of this encounter Plan of [...] documented as of this encounter Care Teams Surgical Corsetier Relationship Specialty Start Date End Date Deep Pruitt APRN PCP - General 05/22/19 documented as of this encounter
--- OUTSIDE RECORDS SUMMARY | 2025-01-14 16:25 | XMS_ITS | Encounter Summary ---
Author Organization [facility] Address [address] [place] [address] Care Team Providers Care Process Architect Name Role Phone Deep Pruitt APRN Primary Care Provider Reason for Visit * Reason Comments Medication Refill Encounter Details Date Type Department Care Team ([facility] st Contact Info) Description 05/27/2020 Telephone [facility] [address] [place] [address] Deep Pruitt APRN [address] [place] [address] Medication Refill Social History Tobacco [...] medications and request someone calls him at [phone] documented in this encounter Plan of Treatment [...] as of this encounter Care Teams Process Architect Relationship Specialty Start Date End Date Deep Pruitt APRN PCP - General 05/22/19 documented as of this encounter
--- OUTSIDE RECORDS SUMMARY | 2025-01-14 16:25 | XMS_ITS | Encounter Summary ---
Author Organization [facility] Address [address] [place] [address] Care Team Providers Care Quality Control Inspector Name Role Phone Deep Pruitt APRN Primary Care Provider [phone] Reason for Visit * Reason Comments Medication Refill Encounter Details Date Type Department Care Team ([facility] st Contact Info) Description 07/29/2020 Refill [facility] [address] [place], [place] [phone] Deep Pruitt, JOHN [address] [place] [phone] Medication Refill Social History Tobacco Use [...] Answer Date Recorded PHQ-2 Score 2 07/07/2020 [facility] of Occupat ional [facility] - [...] as of this encounter Care Teams Quality Control Inspector Relationship Specialty Start Date End Date Deep Pruitt APRN PCP - General 05/22/19 documented as of this encounter
--- OUTSIDE RECORDS SUMMARY | 2025-01-14 16:25 | XMS_ITS | Encounter Summary ---
Author Organization [facility] Address [address] [place] [address] Care Team Providers Care Building Construction Inspector Name Role Phone Deep Pruitt APRN Primary Care Provider Reason for Visit * Reason Comments Medication Refill Encounter Details Date Type Department Care Team ([facility] st Contact Info) Description 06/19/2020 Refill [facility] [address] [place] [address] eDep Pruitt APRN [address] [place] [phone] Medication Refill Social History Tobacco Use [...] Answer Date Recorded PHQ-2 Score 0 03/13/2020 [facility] of Occupat [...] as of this encounter Care Teams Building Construction Inspector Relationship Specialty Start Date End Date Deep Pruitt APRN PCP - General 05/22/19 documented as of this encounter
--- OUTSIDE RECORDS SUMMARY | 2025-01-14 16:25 | XMS_ITS | Encounter Summary ---
Author Organization [email or web address] Address [address] [facility] 7t [place] [address] Care Team Providers Care Clinical Auditor Name Role Phone Katrin Santoyo MD Primary Care Pro vider Edison Vieira MD Unavailable [phone] Joe Devi MD Unavailable [phone] Chuy Mcmanus MD Unavailable Sveta Lazaro RN Unavailable [phone] Leslie Kline Unavailable Reason for Visit * Reason Onset Date Comments Durable Medical Equipment 11/08/2023 Encounter Details Date Type Department Care Team (Late st Contact Info) Description 11/08/2023 Telephone [facility]IC[facility] [address] [place], [place] [phone] Katrin Santoyo MD [address] [place], [place] [phone] Durable Medical Equipment Social History Tobacco Use [...] the past 12 months, has t he [employer], gas, oil or water [employer] threatened to shut off services in your [...] 11/10/2023 11:01 AM EDT Call placed to [employer] spoke to Zhen who was informed on 10/31/23 we faxed over RX with the qty on it. He reports that what they need is the letter of medical necessity not the Rx. He reports he will fax it to [employer] at [phone] and once signed and faxed back it will be all set. Awaiting do cument. * Telephone Encounter - Mauricio Taylor - 11/08/2023 3:57 PM EDT Tc from Tanya at [employer] calling to report the DME is missing the quantity and the description please sign and refax documented in this encounter Plan of Treatment Not on file documented as of this encounter Goals Goal Patient Goal Type Associated Problems Recent Progress Patient-Stated? Author Blood Pressure < 140/90 Blood Pressure 149/75(2024 1:05 PM EDT) No Nemesios-Eve Grier, PharmD Hemoglobin A1c < 7 Result Component 9(11/01/2024 1:35 PM EDT) No Whit-Eve Grier, PharmD documented as of this encounter Visit Diagnoses Not on filedocumented in this encounter Additional Health Concerns Assessment Noted Time PHQ-9 Depression Total Score: 4 10/31/19 10:32 AM EDT documented as of this encounter Care Teams Clinical Auditor Relationship Specialty Start Date End Date Katrin Santoyo MD [address] [place] [address] PCP - General Internal Medicine 12/13/22 Edison Vieira MD [address] [place] [address] Pulmonary Disease 04/07/24 Joe Devi MD [address] [place] [address] 3rd [place] [address] Gastroenterology 04/07/24 Chuy Mcmanus MD [address] [place] [address] [place] [address] Bariatrics 09/25/24 Sveta Lazaro RN [address] [place] [address] Registered Nurse Family Medicine 11/29/24 Leslie Kline 11/29/24 Carito Roche DNP 10 [facility], [address] [place] [address] Nephrology 04/07/24 [facility] 04/11/24 12/18/24 [facility] 12/14/24 documented as of this encounter
--- OUTSIDE RECORDS SUMMARY | 2025-01-14 16:25 | XMS_ITS | Encounter Summary ---
Author Organization [facility] Address [address] [place] [address] Care Team Providers Care Radiology Nurse Name Role Phone Deep Pruitt APRN Primary Care Provider Reason for Visit * Reason Comments Forms Encounter Details Date Type Department Care Team ([facility] Contact Info) Description 06/16/2020 Telephone [facility] [address] [place] [address] Deep Pruitt APRN [address] [place] [phone] Forms Social History Tobacco Use Types [...] Answer Date Recorded PHQ-2 Score 0 03/13/2020 [facility] of [...] update on handicap forms for pt. Call [phone] documented in this encounter Plan of Treatment [...] documented as of this encounter Care Teams Radiology Nurse Relationship Specialty Start Date End Date Deep Pruitt APRN PCP - General 05/22/19 documented as of this encounter
--- OUTSIDE RECORDS SUMMARY | 2025-01-14 16:25 | XMS_ITS | Encounter Summary ---
Author Organization [facility] Address [address] [place] [address] Care Team Providers Care Campaign Management Specialist Name Role Phone Deep Pruitt APRN Primary Care Provider Reason for Visit * Reason Comments Medication Refill Encounter Details Date Type Department Care Team ([facility] st Contact Info) Description 06/07/2022 Refill [facility] [address] [place], [place] [phone] Deep Puritt APRN [address] [place] [address] Medication Refill Social History [...] you attend chur ch or adventism services? More than 4 times per year [...] living situation today? I have a [facility] place to live 05/19/2022 Sex and [...] as of this encounter Care Teams Campaign Management Specialist Relationship Specialty Start Date End Date Deep Pruitt APRN PCP - General 05/22/19 documented as of this encounter
--- OUTSIDE RECORDS SUMMARY | 2025-01-14 16:25 | XMS_ITS | Encounter Summary ---
Author Organization [employer] Address [address] [facility] 7t [place] [address] Care Team Providers Care Women'S Basketball Coach Name Role Phone Katrin Santoyo MD Primary Care Pro vider Edison Vieira MD Unavailable [phone] Joe Devi MD Unavailable [phone] Chuy Mcmanus MD Unavailable Sveta Lazaro RN Unavailable [phone] Leslie Kline Unavailable Reason for Visit * Reason Comments Med Refill Encounter Details Date Type Department Care Team (Late st Contact Info) Description 02/11/2024 Refill [facility] [address] [place] [address] Moriah Herbert FNP [address] [place] [address] Chronic radicular lumbar pain Social History Tobacco [...] the past 12 months, has t he [employer], gas, oil or water [email or web address] threatened to shut off services in your [...] Result Component 9(11/01/2024 1:35 PM EDT) No Nemesios-Eve Grier, PharmD documented as of this encounter Visit Diagnoses Diagnosis Chronic radicular lumbar pain documented in this encounter Additional Health Concerns Assessment Noted Time PHQ-9 Depression Total Score: 4 10/31/19 24 10:32 AM EDT documented as of this encounter Care Teams Women'S Basketball Coach Relationship Specialty Start Date End Date Katrin Santoyo MD [address] [place] [address] PCP - General Internal Medicine 12/13/22 Edison Vieira MD [address] [place] [phone] Pulmonary Disease 04/07/24 Joe Devi MD [address]rd [place] [address] Gastroenterology 04/07/24 Chuy Mcmanus MD [address] [place] [address] [place] [address] Bariatrics 09/25/24 Sveta Lazaro RN [address] [place] [address] Registered Nurse Family Medicine 11/29/24 Leslie Kline 11/29/24 Carito Roche DNP 10 [facility], [address] [place] [address] Nephrology 04/07/24 [facility] 04/11/24 12/18/24 [facility] 12/14/24 documented as of this encounter
--- OUTSIDE RECORDS SUMMARY | 2025-01-14 16:25 | XMS_ITS | Encounter Summary ---
Author Organization [facility] Address [address] [place] [address] Care Team Providers Care Fourdrinier Machine Tender Name Role Phone Sonal Deep Niko LOPEZ Primary Care Provider [phone] Reason for Visit * Reason Comments Medication Refill Encounter Details Date Type Department Care Team ([facility] st Contact Info) Description 05/10/2021 Refill [facility] [address] [place] [phone] Aliya Pond, [address] [address] Medication Refill Social History Tobacco [...] Date Recorded PHQ-2 Total Score 0 04/21/2021 [facility] - [...] documented as of this encounter Care Teams Fourdrinier Machine Tender Relationship Specialty Start Date End Date Deep Pruitt APRN PCP - General 05/22/19 documented as of this encounter
--- OUTSIDE RECORDS SUMMARY | 2025-01-14 16:25 | XMS_ITS | Encounter Summary ---
Author Organization [facility] Address [address] [place] [address] Care Team Providers Care Sales Agent [employer] Insurance Name Role Phone Deep Pruitt JOHN Primary Care Provider Reason for Visit * Reason Comments Medication Refill Encounter Details Date Type Department Care Team (Late st Contact Info) Description 07/20/2020 Refill [facility] Podiatry at [address] [place] [phone] Arben Fountain, [employer] [address] [place] [address] Medication Refill Social History Tobacco Use [...] as of this encounter Care Teams Sales Agent [employer] Insurance Relationship Specialty Start Date End Date Deep Pruitt APRN PCP - General 05/22/19 documented as of this encounter
--- OUTSIDE RECORDS SUMMARY | 2025-01-14 16:25 | XMS_ITS | Encounter Summary ---
Author Organization [facility] Address [address] [place] [address] Care Team Providers Care Gripper Attacher Name Role Phone Deep Pruitt JOHN Primary Care Provider Reason for Visit * Reason Comments Medication Refill Encounter Details Date Type Department Care Team (Late st Contact Info) Description 05/06/2021 Refill [facility] Podiatry at [address] [place] [phone] Arben Fountain, NOL[employer] [address] [place] [address] Medication Refill Social History Tobacco Use [...] Date Recorded PHQ-2 Total Score 0 04/21/2021 [facility] - [...] documented as of this encounter Care Teams Gripper Attacher Relationship Specialty Start Date End Date Deep Pruitt APRN PCP - General 05/22/19 documented as of this encounter
--- OUTSIDE RECORDS SUMMARY | 2025-01-14 16:25 | XMS_ITS | Encounter Summary ---
Author Organization [facility] Address [address] [place] [address] Care Team Providers Care Airfreight Operations Agent Name Role Phone Deep Pruitt APRN Primary Care Provider Reason for Visit * Reason Comments Medication Refill Encounter Details Date Type Department Care Team ([facility] st Contact Info) Description 06/30/2021 Refill [facility] [address] [place], [place] [phone] Deep Pruitt APRN [address] [place] [address] Medication Refill Social History Tobacco [...] documented as of this encounter Care Teams Airfreight Operations Agent Relationship Specialty Start Date End Date Deep Pruitt APRN PCP - General 05/22/19 documented as of this encounter
--- OUTSIDE RECORDS SUMMARY | 2025-01-14 16:25 | XMS_ITS | Encounter Summary ---
Author Organization [facility] Address [address] [place] [address] Care Team Providers Care Inclinometer Tester Name Role Phone Deep Pruitt APRN Primary Care Provider [phone] Encounter Details Date Type Department Care Team ([facility] st Contact Info) Description 06/25/2021 Telephone [facility] [address] [place] [address] Deep Pruitt APRN [address] [place] [address] Social History Tobacco Use Types [...] Date Recorded PHQ-2 Total Score 3 05/31/2021 [facility] of Occupat ional Health - [...] documented as of this encounter Care Teams Inclinometer Tester Relationship Specialty Start Date End Date Deep Pruitt APRN PCP - General 05/22/19 documented as of this encounter
--- OUTSIDE RECORDS SUMMARY | 2025-01-14 16:25 | XMS_ITS | Encounter Summary ---
Author Organization [facility] Address [address] [place] [address] Care Team Providers Care Biofuels Production Technician Name Role Phone Deep Pruitt JOHN Primary Care Provider Reason for Visit * Reason Comments Medication Refill Encounter Details Date Type Department Care Team (Late st Contact Info) Description 05/12/2021 Refill [facility] Podiatry at [address] [place] [phone] Arben Fountain, NOLVIA [address] [place] [address] Medication Refill Social History Tobacco [...] Total Score 0 04/21/2021 [facility] - Occupational Stress Questionnaire Answer Date [...] as of this encounter Care Teams Biofuels Production Technician Relationship Specialty Start Date End Date Deep Pruitt APRN PCP - General 05/22/19 documented as of this encounter
--- OUTSIDE RECORDS SUMMARY | 2025-01-14 16:25 | XMS_ITS | Encounter Summary ---
Author Organization [facility] Address [address] [place] [address] Care Team Providers Care Automotive Parts Advisor Name Role Phone Deep Pruitt APRN Primary Care Provider Reason for Visit * Reason Comments Medication Refill Encounter Details Date Type Department Care Team ([facility] st Contact Info) Description 06/19/2020 Refill [facility] [address] [place] [address] Deep Pruitt APRN [address] [place] [phone] Medication Refill Social History Tobacco Use [...] Answer Date Recorded PHQ-2 Score 0 03/13/2020 [facility] of Occupat ional Health - [...] as of this encounter Care Teams Automotive Parts Advisor Relationship Specialty Start Date End Date Deep Pruitt APRN PCP - General 05/22/19 documented as of this encounter
--- OUTSIDE RECORDS SUMMARY | 2025-01-14 16:25 | XMS_ITS | Encounter Summary ---
Author Organization [facility] Address [address] [place] [address] Care Team Providers Care Credentialing Coordinator Name Role Phone Deep Pruitt APRN Primary Care Provider Reason for Visit * Reason Comments DME Encounter Details Date Type Department Care Team ([facility] st Contact Info) Description 05/04/2022 Documentation Sleep Medicine Program at [address] [place] [phone] Jarad De Leon MD [address] [place] [phone] Social History Tobacco Use Types Packs/Day [...] PHQ-2 Total Score 2 02/17/2022 [facility] of Occupat ional Health [...] documented as of this encounter Care Teams Credentialing Coordinator Relationship Specialty Start Date End Date Deep Pruitt APRN PCP - General 05/22/19 documented as of this encounter
--- OUTSIDE RECORDS SUMMARY | 2025-01-14 16:26 | XMS_ITS | Encounter Summary ---
Author Organization [facility] Address [address] [place] [address] Care Team Providers Care Folder And Notcher Name Role Phone Deep Pruitt APRN Primary Care Provider Reason for Visit * Reason Comments Medication Refill Encounter Details Date Type Department Care Team ([facility] st Contact Info) Description 03/19/2022 Refill [facility] TRANS[facility] [address] [place], [place] [phone] Deep Pruitt, JOHN [address] [place] [address] Medication Refill Social History Tobacco [...] Date Recorded PHQ-2 Total Score 2 02/17/2022 [facility] of Occupat ional [...] documented as of this encounter Care Teams Folder And Notcher Relationship Specialty Start Date End Date Deep Pruitt APRN PCP - General 05/22/19 documented as of this encounter
--- OUTSIDE RECORDS SUMMARY | 2025-01-14 16:26 | XMS_ITS | Encounter Summary ---
Author Organization [facility] Address [address] [place] [address] Care Team Providers Care Agriscience Technology Instructor Name Role Phone Deep Pruitt JOHN Primary Care Provider [phone] Reason for Visit * Reason Comments Medication Refill Encounter Details Date Type Department Care Team (Late st Contact Info) Description 12/03/2021 Refill [facility] Podiatry at [address] [place] [phone] Arben Fountain, NOLVIA [address] [place] [address] Medication Refill Social History Tobacco Use [...] Date Recorded PHQ-2 Total Score 0 11/17/2021 [facility] - Occupational Stress Questionnaire Answer [...] documented as of this encounter Care Teams Agriscience Technology Instructor Relationship Specialty Start Date End Date Deep Pruitt APRN PCP - General 05/22/19 documented as of this encounter
--- OUTSIDE RECORDS SUMMARY | 2025-01-14 16:26 | XMS_ITS | Encounter Summary ---
Author Organization [facility] Address [address] [place] [address] Care Team Providers Care Contact Center Professional Name Role Phone Sonal Deep Niko LOPEZ Primary Care Provider Reason for Visit * Reason Comments Medication Refill Encounter Details Date Type Department Care Team ([facility] st Contact Info) Description 05/05/2021 Refill [facility] [address] [place] [phone] Aliya Pond, [address] [address] Medication Refill Social History Tobacco [...] PHQ-2 Total Score 0 04/21/2021 [facility] [...] as of this encounter Care Teams Contact Center Professional Relationship Specialty Start Date End Date Deep Pruitt APRN PCP - General 05/22/19 documented as of this encounter
--- OUTSIDE RECORDS SUMMARY | 2025-01-14 16:26 | XMS_ITS ---
Author Organization [employer] Address [address] [facility] 7t [place] [address] Care Team Providers Care Varnish Maker Helper Name Role Phone Katrin Santoyo MD Primary Care Pro vider Edison Vieira MD Unavailable [phone] Joe Devi MD Unavailable [phone] Chuy Mcmanus MD Unavailable Sveta Lazaro RN Unavailable [phone] Leslie Kline Unavailable CM Complex Status:Outreach In Progress (Enrolling) Start date:11/29/2024 Enrollment reason:ADT Feed Overview ADT-[facility] ED 11/28/24 Case Team Name Relationship Phone Sveta Lazaro RN(Responsible Staff) Registered Nurse [phone] Continued Care and Services Coordination
--- OUTSIDE RECORDS SUMMARY | 2025-01-14 16:26 | XMS_ITS | Encounter Summary ---
Author Organization [facility] [employer] and [facility] Address [address] [place] [phone] Care Team Providers Care Frame Operator Name Role Phone Deep Pruitt APRN Primary Care Provider [phone] Reason for Visit * Reason Onset Date Comments Medication Refill 11/10/2021 Encounter Details Date Type Department Care Team (Late st Contact Info) Description 11/10/2021 Refill [facility] [address] [facility] [address] [facility] 2nd [place] [address] Taylor Malagon, [facility] [address] [place] [phone] Medication Refill Social History Tobacco Use Types [...] Date Recorded PHQ-2 Total Score 0 10/12/2021 [facility] of Occupat ional [facility] - Occupational Stress Questionnaire Answer Date [...] today, but unknown at home. Defer to [facility] pharmacy team for antihypertensive management. Current [...] documented as of this encounter Care Teams Frame Operator Relationship Specialty Start Date End Date Deep Pruitt APRN PCP - General 05/22/19 documented as of this encounter
--- OUTSIDE RECORDS SUMMARY | 2025-01-14 16:26 | XMS_ITS | Encounter Summary ---
Author Organization [facility] Address [address] [place] [address] Care Team Providers Care Supervisor Chlorine Liquefaction Name Role Phone Romelia Pruittian Niko LOPEZ Primary Care Provider Reason for Visit * Reason Onset Date Comments Medication Refill 11/19/2021 Encounter Details Date Type Department Care Team (Late st Contact Info) Description 11/19/[address] [facility] [address] [place] [phone] Carlos Eduardo Joyner MD [address] [place] [phone] Medication Refill Social History Tobacco Use [...] Score 0 11/17/2021 [facility] [...] as of this encounter Care Teams Supervisor Chlorine Liquefaction Relationship Specialty Start Date End Date Deep Pruitt APRN PCP - General 05/22/19 documented as of this encounter
--- OUTSIDE RECORDS SUMMARY | 2025-01-14 16:26 | XMS_ITS | Encounter Summary ---
Author Organization [facility] [employer] and [facility] Address [address] [place] [phone] Care Team Providers Care Hot Mill Supervisor Name Role Phone Deep Pruitt APRN Primary Care Provider Reason for Visit * Reason Onset Date Comments Medication Refill 11/19/2021 Encounter Details Date Type Department Care Team (Late st Contact Info) Description 11/19/2021 Refill [facility] [address] [facility] 2nd [place] [address] Yue Dominguez APRN [address] [place] [phone] Medication Refill Social History Tobacco Use Types [...] as of this encounter Care Teams Hot Mill Supervisor Relationship Specialty Start Date End Date Deep Pruitt APRN PCP - General 05/22/19 documented as of this encounter
--- OUTSIDE RECORDS SUMMARY | 2025-01-14 16:26 | XMS_ITS | Encounter Summary ---
Author Organization [facility] Address [address] [place] [address] Care Team Providers Care Wire Frame Maker Name Role Phone Deep Pruitt APRN Primary Care Provider Reason for Visit * Reason Comments Medication Problem Encounter Details Date Type Department Care Team ([facility] st Contact Info) Description 12/21/2021 Refill [facility] [address] [place] [address] Deep Pruitt APRN [address] [place] [address] Medication Problem Social History Tobacco [...] updated information the water pill. Call back [phone] * Telephone Encounter - Sarah Newman - 12/21/2021 1:05 PM EDT Best contact: [phone] Patient Sissy called and stated that she contacted [facility] on and they informed that [...] as of this encounter Care Teams Wire Frame Maker Relationship Specialty Start Date End Date Deep Pruitt APRN PCP - General 05/22/19 documented as of this encounter
--- OUTSIDE RECORDS SUMMARY | 2025-01-14 16:26 | XMS_ITS | Encounter Summary ---
Author Organization [facility] Address [address] [place] [address] Care Team Providers Care Sampler Tester Name Role Phone [place] Niko LOPEZ Primary Care Provider [phone] Reason for Visit * Reason Comments Medication Refill Encounter Details Date Type Department Care Team ([facility] st Contact Info) Description 05/12/2020 Refill [facility] [address] [facility] [address] [place] [phone] Zena Hines PA [address] [place] [phone] Medication Refill Social History Tobacco Use [...] Answer Date Recorded PHQ-2 Score 0 03/13/2020 [facility] of Occupat ional Health [...] Pike Please review pt no longer seeing [facility] Wellness Dept for DM management. Katrin Sullivan [...] documented as of this encounter Care Teams Sampler Tester Relationship Specialty Start Date End Date Deep Pruitt APRN PCP - General 05/22/19 documented as of this encounter
--- OUTSIDE RECORDS SUMMARY | 2025-01-14 16:26 | XMS_ITS | Encounter Summary ---
Author Organization [facility] Address [address] [place] [address] Care Team Providers Care Glassware Maker Name Role Phone Deep Pruitt APRN Primary Care Provider Reason for Visit * Reason Comments Medication Refill Encounter Details Date Type Department Care Team ([facility] st Contact Info) Description 03/08/2021 Refill [facility] [address] [place], [place] [phone] Deep Pruitt APRN [address] [place] [address] Medication Refill Social History Tobacco [...] Date Recorded PHQ-2 Total Score 2 03/10/2021 [facility] of Occupat ional Health - [...] documented as of this encounter Care Teams Glassware Maker Relationship Specialty Start Date End Date Deep Pruitt APRN PCP - General 05/22/19 documented as of this encounter
--- OUTSIDE RECORDS SUMMARY | 2025-01-14 16:26 | XMS_ITS | Encounter Summary ---
Author Organization [facility] Address [address] [place] [address] Care Team Providers Care Clay Products Glazer Name Role Phone [place] Niko LOPEZ Primary Care Provider Reason for Visit * Reason Onset Date Comments Medication Refill 11/19/2021 Encounter Details Date Type Department Care Team (Late st Contact Info) Description 11/19/2021 Refill [facility] [address] [place] [address] Audelia Childs, DDS [address] [place] [address] Medication Refill Social History Tobacco [...] Date Recorded PHQ-2 Total Score 0 11/17/2021 [facility] [place] of Occupat ional Health - Occupational Stress [...] documented as of this encounter Care Teams Clay Products Glazer Relationship Specialty Start Date End Date Deep Pruitt APRN PCP - General 05/22/19 documented as of this encounter
--- OUTSIDE RECORDS SUMMARY | 2025-01-14 16:26 | XMS_ITS | Encounter Summary ---
Author Organization [facility] Address [address] [place] [address] Care Team Providers Care Mainframe Analyst Name Role Phone Deep Pruitt APRN Primary Care Provider Reason for Visit * Reason Comments Medication Refill Encounter Details Date Type Department Care Team ([facility] st Contact Info) Description 12/15/2021 Refill [facility] [address] [place], [place] [phone] Deep Pruitt APRN [address] [place] [address] Medication Refill Social History Tobacco [...] Date Recorded PHQ-2 Total Score 1 12/16/2021 [facility] of Occupat ional Health - [...] as of this encounter Care Teams Mainframe Analyst Relationship Specialty Start Date End Date Deep Pruitt APRN PCP - General 05/22/19 documented as of this encounter
--- OUTSIDE RECORDS SUMMARY | 2025-01-14 16:26 | XMS_ITS | Encounter Summary ---
Author Organization [facility] [employer] [facility] and [facility] Address [address] [place] [address] Care Team Providers Care Roll Scale Man Name Role Phone Deep Pruitt APRN Primary Care Provider Reason for Visit * Reason Onset Date Comments Medication Refill 11/10/2021 Encounter Details Date Type Department Care Team (Late st Contact Info) Description 11/10/2021 Refill [facility] at [address] 2[address] [place], [place] [phone] Anahi Rossi, JOHN [address] [place] [address] Medication Refill Social History Tobacco [...] Date Recorded PHQ-2 Total Score 0 10/12/2021 [facility] of Occupat ional [facility] [...] as of this encounter Care Teams Roll Scale Man Relationship Specialty Start Date End Date Deep Pruitt APRN PCP - General 05/22/19 documented as of this encounter
--- OUTSIDE RECORDS SUMMARY | 2025-01-14 16:26 | XMS_ITS | Encounter Summary ---
Author Organization [facility] Address [address] [place] [address] Care Team Providers Care Professor Of Economics Name Role Phone Sonal Deep Niko LOPEZ Primary Care Provider [phone] Reason for Visit * Reason Comments Medication Refill Encounter Details Date Type Department Care Team ([facility] st Contact Info) Description 05/03/2021 Refill [facility] [address] [place] [phone] Aliya Pond, [address] [phone] Medication Refill Social History Tobacco [...] Date Recorded PHQ-2 Total Score 0 04/21/2021 [facility] [place] [facility] - Occupational [...] of this encounter Care Teams Professor Of Economics Relationship Specialty Start Date End Date Deep Pruitt APRN PCP - General 05/22/19 documented as of this encounter
--- OUTSIDE RECORDS SUMMARY | 2025-01-14 16:26 | XMS_ITS | Encounter Summary ---
Author Organization [facility] Address [address] [place] [address] Care Team Providers Care Manager Progressive Care Name Role Phone Deep Pruitt APRN Primary Care Provider Reason for Visit * Reason Comments Medication Refill Encounter Details Date Type Department Care Team ([facility] st Contact Info) Description 12/18/[address] [facility] [address] [place], [place] [phone] Deep Pruitt APRN [address] [place] [address] Medication Refill Social History Tobacco [...] as of this encounter Care Teams Manager Progressive Care Relationship Specialty Start Date End Date Deep Pruitt APRN PCP - General 05/22/19 documented as of this encounter
--- OUTSIDE RECORDS SUMMARY | 2025-01-14 16:26 | XMS_ITS | Encounter Summary ---
Author Organization [facility] [facility] Address [address] [place] [address] Care Team Providers Care Porter Marina Name Role Phone Romelia Pruittian Niko LOPEZ Primary Care Provider Reason for Visit * Reason Onset Date Comments Medication Refill 11/10/2021 Encounter Details Date Type Department Care Team (Late st Contact Info) Description 11/10/2021 Refill [facility] at [address] [facility] [address] [place] [phone] Anahi Rossi, JOHN [address] [place] [phone] Medication Refill Social History Tobacco Use [...] 10/12/2021 [facility] of Occupat ional Health [...] documented as of this encounter Care Teams Porter Marina Relationship Specialty Start Date End Date Deep Pruitt APRN PCP - General 05/22/19 documented as of this encounter
--- OUTSIDE RECORDS SUMMARY | 2025-01-14 16:26 | XMS_ITS | Encounter Summary ---
Author Organization [facility] [employer] and [facility] Address [address] [place] [address] Care Team Providers Care Performance Specialist Name Role Phone Deep Pruitt APRN Primary Care Provider [phone] Reason for Visit * Reason Comments DME Encounter Details Date Type Department Care Team (Late st Contact Info) Description 04/11/2022 Documentation Sleep Medicine Program at [address] [place] [address] Jarad De Leon MD [address] [place] [phone] Social History Tobacco Use Types Packs/Day [...] Recorded PHQ-2 Total Score 2 02/17/2022 [facility] of Occupat ional Health [...] as of this encounter Care Teams Performance Specialist Relationship Specialty Start Date End Date Deep Pruitt APRN PCP - General 05/22/19 documented as of this encounter
--- OUTSIDE RECORDS SUMMARY | 2025-01-14 16:26 | XMS_ITS | Encounter Summary ---
Author Organization [facility] Address [address] [place] [address] Care Team Providers Care Tests Superintendent Name Role Phone Deep Pruitt JOHN Primary Care Provider Encounter Details Date Type Department Care Team (Late st Contact Info) Description 02/20/2017 Scanned Document [facility] [address] [place] [address] Francisco Veloz PA [address] [place] [phone] Social History Tobacco Use Types Packs/Day [...] documented as of this encounter Care Teams Tests Superintendent Relationship Specialty Start Date End Date Deep Pruitt APRN PCP - General 05/22/19 documented as of this encounter
--- OUTSIDE RECORDS SUMMARY | 2025-01-14 16:26 | XMS_ITS | Encounter Summary ---
Author Organization [facility] Address [address] [place] [address] Care Team Providers Care K 9 Handler/ Deputy Name Role Phone [place] Niko LOPEZ Primary Care Provider Reason for Visit * Reason Comments Medication Refill Encounter Details Date Type Department Care Team ([facility] st Contact Info) Description 04/07/2021 Refill [facility] Nutrition at [address] [facility]1]e [address] [place] [phone] Zena Hines PA [address] [place] [phone] Medication Refill Social History Tobacco Use [...] Recorded PHQ-2 Total Score 1 03/24/2021 [facility] of Occupat ional Health [...] seeing Zena Hines for DM management at [facility]. Thanks, Katrin documented in this encounter [...] as of this encounter Care Teams K 9 Handler/ Deputy Relationship Specialty Start Date End Date Deep Pruitt APRN PCP - General 05/22/19 documented as of this encounter
--- OUTSIDE RECORDS SUMMARY | 2025-01-14 16:26 | XMS_ITS | Encounter Summary ---
Author Organization [facility] Address [address] [place] [address] Care Team Providers Care Traditional Chinese Herbalist Name Role Phone Sonal Deep Niko LOPEZ Primary Care Provider [phone] Reason for Visit * Reason Comments Medication Refill Encounter Details Date Type Department Care Team ([facility] st Contact Info) Description 04/12/2021 Refill [facility] [address] [place] [phone] Aliya Pond, [address] [address] Medication Refill Social History Tobacco [...] Date Recorded PHQ-2 Total Score 1 03/24/2021 [facility] [...] documented as of this encounter Care Teams Traditional Chinese Herbalist Relationship Specialty Start Date End Date Deep Pruitt APRN PCP - General 05/22/19 documented as of this encounter
--- OUTSIDE RECORDS SUMMARY | 2025-01-14 16:26 | XMS_ITS | Encounter Summary ---
Author Organization [facility] Address [address] [place] [address] Care Team Providers Care Varnish Maker Name Role Phone Deep Pruitt APRN Primary Care Provider Reason for Visit * Reason Comments Medication Refill Encounter Details Date Type Department Care Team ([facility] st Contact Info) Description 03/10/2021 Refill [facility] [address] [place] [address] Deep Pruitt APRN [address] [place] [phone] Medication Refill Social History Tobacco Use [...] Date Recorded PHQ-2 Total Score 2 03/10/2021 [facility] of Occupat ional Health [...]
--- OUTSIDE RECORDS SUMMARY | 2025-01-14 16:26 | XMS_ITS | Encounter Summary ---
Author Organization [facility] Address [address] [place] [address] Care Team Providers Care Drum Puller Name Role Phone Sonal Deep Niko LOPEZ Primary Care Provider [phone] Reason for Visit * Reason Comments Medication Refill Encounter Details Date Type Department Care Team ([facility] st Contact Info) Description 04/07/2021 Refill [facility] [address] [place] [phone] Aliya Pond, [address] [phone] Medication Refill Social History Tobacco [...] Date Recorded PHQ-2 Total Score 1 03/24/2021 [facility] - Occupational [...] documented as of this encounter Care Teams Drum Puller Relationship Specialty Start Date End Date Deep Pruitt APRN PCP - General 05/22/19 documented as of this encounter
--- OUTSIDE RECORDS SUMMARY | 2025-01-14 16:26 | XMS_ITS | Encounter Summary ---
Author Organization [facility] Address [address] [place] [address] Care Team Providers Care Cigar Wrapper Name Role Phone Deep Pruitt APRN Primary Care Provider Reason for Visit * Reason Comments Medication Refill Encounter Details Date Type Department Care Team ([facility] st Contact Info) Description 05/13/2020 Refill [facility] [employer] [address] [place], [place] [phone] Deep Pruitt APRN [address] [place] [address] Medication Refill Social History Tobacco [...] Answer Date Recorded PHQ-2 Score 0 03/13/2020 [facility] of Occupat ional Health - Occupational Stress [...] documented as of this encounter Care Teams Cigar Wrapper Relationship Specialty Start Date End Date Deep Pruitt APRN PCP - General 05/22/19 documented as of this encounter
--- OUTSIDE RECORDS SUMMARY | 2025-01-14 16:26 | XMS_ITS | Encounter Summary ---
Author Organization [facility] Address [address] [place] [address] Care Team Providers Care Electric Brain Wave Equipment Mechanic Name Role Phone Deep Pruitt Niko LOPEZ Primary Care Provider Reason for Visit * Reason Comments Medication Refill Encounter Details Date Type Department Care Team (Late st Contact Info) Description 05/06/[address] [phone] Arben Fountain, [employer] [address] [place] [address] Medication Refill Social History Tobacco [...] as of this encounter Care Teams Electric Brain Wave Equipment Mechanic Relationship Specialty Start Date End Date Deep Pruitt APRN PCP - General 05/22/19 documented as of this encounter
--- OUTSIDE RECORDS SUMMARY | 2025-01-14 16:26 | XMS_ITS | Encounter Summary ---
Author Organization [facility] Address [address] [place] [address] Care Team Providers Care Materials Branch Chief Name Role Phone Romelia Pruittian Niko LOPEZ Primary Care Provider Encounter Details Date Type Department Care Team (Late st Contact Info) Description 03/18/2021 Scanned Document [facility] [address] [place] [address] External, Provider Social History Tobacco Use Types [...] Date Recorded PHQ-2 Total Score 2 03/10/2021 [facility] of Occupat ional Health [...] documented as of this encounter Care Teams Materials Branch Chief Relationship Specialty Start Date End Date Deep Pruitt APRN PCP - General 05/22/19 documented as of this encounter
--- OUTSIDE RECORDS SUMMARY | 2025-01-14 16:26 | XMS_ITS | Encounter Summary ---
Author Organization [facility] Address [address] [place] [address] Care Team Providers Care Contract Design Agent Name Role Phone Deep Pruitt APRN Primary Care Provider Reason for Visit * Reason Comments Medication Refill Encounter Details Date Type Department Care Team ([facility] st Contact Info) Description 11/17/2021 Refill [facility] [address] [place], [place] [phone] Deep Pruitt APRN [address] [place] [address] Medication Refill Social History Tobacco [...] Date Recorded PHQ-2 Total Score 0 11/17/2021 [facility] of Occupat ional Health [...] as of this encounter Care Teams Contract Design Agent Relationship Specialty Start Date End Date Deep Pruitt APRN PCP - General 05/22/19 documented as of this encounter
--- OUTSIDE RECORDS SUMMARY | 2025-01-14 16:26 | XMS_ITS | Encounter Summary ---
Author Organization [facility] Address [address] [place] [address] Care Team Providers Care Coo Name Role Phone Deep Pruitt APRN Primary Care Provider Reason for Visit * Reason Comments Medication Refill Encounter Details Date Type Department Care Team ([facility] st Contact Info) Description 02/25/2022 Refill [facility] [address] [place], [place] [phone] Deep Pruitt, JOHN [address] [place] [phone] Medication Refill Social History Tobacco Use [...] documented as of this encounter Care Teams Coo Relationship Specialty Start Date End Date Deep Pruitt APRN PCP - General 05/22/19 documented as of this encounter
--- OUTSIDE RECORDS SUMMARY | 2025-01-14 16:26 | XMS_ITS | Encounter Summary ---
Author Organization [facility] Address [address] [place] [address] Care Team Providers Care Ship Painter Helper Name Role Phone Deep Pruitt APRN Primary Care Provider Reason for Visit * Reason Comments Medication Refill Encounter Details Date Type Department Care Team ([facility] st Contact Info) Description 03/20/2021 Refill [facility] [address] [place] [address] Deep Pruitt APRN [address] [place] [phone] Medication Refill Social History Tobacco Use [...] Date Recorded PHQ-2 Total Score 1 03/24/2021 [facility] of Occupat ional Health - [...] as of this encounter Care Teams Ship Painter Helper Relationship Specialty Start Date End Date Deep Pruitt APRN PCP - General 05/22/19 documented as of this encounter
--- OUTSIDE RECORDS SUMMARY | 2025-01-14 16:26 | XMS_ITS | Encounter Summary ---
Author Organization [facility] [employer] [facility] and [facility] Address [address] [place] [address] Care Team Providers Care Wash House Supervisor Name Role Phone Deep Puritt APRN Primary Care Provider [phone] Reason for Visit * Reason Onset Date Comments Medication Refill 11/19/2021 Encounter Details Date Type Department Care Team (Late st Contact Info) Description 11/19/2021 Refill [facility] [address] [facility] [address] [facility] 2nd [place] [address] Yue Dominguez APRN [address] [place] [phone] Medication Refill Social History Tobacco Use Types [...] of this encounter Care Teams Wash House Supervisor Relationship Specialty Start Date End Date Deep Pruitt APRN PCP - General 05/22/19 documented as of this encounter
--- OUTSIDE RECORDS SUMMARY | 2025-01-14 16:26 | XMS_ITS | Encounter Summary ---
Author Organization [facility] Address [address] [place] [address] Care Team Providers Care Oracle Software Engineer Name Role Phone Deep Pruitt APRN Primary Care Provider Reason for Visit * Reason Comments Advice Only Other Encounter Details Date Type Department Care Team ([facility] Contact Info) Description 12/02/2021 Telephone [facility] [address] [place] [address] Deep Pruitt APRN [address] [place] [address] Advice Only; Other Social History [...] Score 0 11/17/2021 [facility] [...] Mira Rios - 12/02/2021 1:32 PM EDT [facility] - [address] calling in regards to med refill request for Carvedilol 25 mg and Gabapentin medications. Call back [phone] * Telephone Encounter - Leah Madera LPN - 12/02/2021 1:21 PM EDT Patient at * Telephone Encounter - Usha Kline - 12/02/2021 12:18 PM EDT Pt is having a lot of stomach pain on the left side and would like to speak with PCP or nurse. Requesting a call back. [facility] callback number [phone] Bolivian speaking documented in this encounter Plan of [...] documented as of this encounter Care Teams Oracle Software Engineer Relationship Specialty Start Date End Date Deep Pruitt APRN PCP - General 05/22/19 documented as of this encounter
--- OUTSIDE RECORDS SUMMARY | 2025-01-14 16:26 | XMS_ITS | Encounter Summary ---
Author Organization [facility] Address [address] [place] [address] Care Team Providers Care Anodize Machine Operator Name Role Phone Deep Pruitt APRN Primary Care Provider Reason for Visit * Reason Onset Date Comments Medication Refill 11/10/2021 Encounter Details Date Type Department Care Team (Late st Contact Info) Description 11/10/2021 Refill [facility] [address] [facility] [address] [facility] 2nd [place] [address] Taylor Malagon, [facility] [address] [place] [phone] Medication Refill Social History Tobacco Use Types [...] Date Recorded PHQ-2 Total Score 0 10/12/2021 [facility] [...] documented as of this encounter Care Teams Anodize Machine Operator Relationship Specialty Start Date End Date Deep Pruitt APRN PCP - General 05/22/19 documented as of this encounter
--- OUTSIDE RECORDS SUMMARY | 2025-01-14 16:26 | XMS_ITS | Encounter Summary ---
Author Organization [facility] Address [address] [place] [address] Care Team Providers Care Medical Laboratory Manager Name Role Phone Romelia Pruittian Niko LOPEZ Primary Care Provider Encounter Details Date Type Department Care Team (Late st Contact Info) Description 11/30/2021 Scanned Document [facility] [address] [place] [address] External, Provider Social History Tobacco Use Types [...] as of this encounter Care Teams Medical Laboratory Manager Relationship Specialty Start Date End Date Deep Pruitt APRN PCP - General 05/22/19 documented as of this encounter
--- OUTSIDE RECORDS SUMMARY | 2025-01-14 16:26 | XMS_ITS | Encounter Summary ---
Author Organization [facility] Address [address] [place] [address] Care Team Providers Care Info Analyst Name Role Phone Deep Pruitt JOHN Primary Care Provider [phone] Encounter Details Date Type Department Care Team (Late st Contact Info) Description 01/17/2019 Scanned Document [facility] [address] [place], [place] [id number] External, Provider Social History Tobacco Use Types [...] documented as of this encounter Care Teams Info Analyst Relationship Specialty Start Date End Date Deep Pruitt APRN PCP - General 05/22/19 documented as of this encounter
--- OUTSIDE RECORDS SUMMARY | 2025-01-14 16:26 | XMS_ITS | Encounter Summary ---
Author Organization [facility] Address [address] [place] [address] Care Team Providers Care Watch Engineer Name Role Phone Deep Pruitt APRN Primary Care Provider Reason for Visit * Reason Comments Other Advice Only Encounter Details Date Type Department Care Team ([facility] Contact Info) Description 10/20/2021 Telephone [facility] [address] [place] [address] Deep Pruitt APRN [address] [place] [address] Other; Advice Only Social History [...] Date Recorded PHQ-2 Total Score 0 10/12/2021 [facility] - [...] legs have not stops hurting. Contact number [phone] documented in this encounter Plan of Treatment Not on file documented as of this encounter Visit Diagnoses Not on filedocumented in this encounter Additional Health Concerns Assessment Noted Time PHQ-9 Depression Total Score: 0 10/13/19 22 2:23 PM EDT documented as of this encounter Care Teams Watch Engineer Relationship Specialty Start Date End Date Deep Pruitt APRN PCP - General 05/22/19 documented as of this encounter
--- OUTSIDE RECORDS SUMMARY | 2025-01-14 16:26 | XMS_ITS | Encounter Summary ---
Author Organization [facility] Address [address] [place] [address] Care Team Providers Care Body Hanger Name Role Phone Deep Pruitt APRN Primary Care Provider Encounter Details Date Type Department Care Team ([facility] st Contact Info) Description 10/27/2021 Scanned Document [facility] [address] [place], [place] [phone] Deep Pruitt APRN [address] [place] [address] Social History Tobacco Use Types [...] Date Recorded PHQ-2 Total Score 0 10/12/2021 [facility] - [...] as of this encounter Care Teams Body Hanger Relationship Specialty Start Date End Date Deep Pruitt APRN PCP - General 05/22/19 documented as of this encounter
--- OUTSIDE RECORDS SUMMARY | 2025-01-14 16:26 | XMS_ITS | Encounter Summary ---
Author Organization [facility] Address [address] [place] [address] Care Team Providers Care Rail Transportation Tabeler Name Role Phone Deep Pruitt APRN Primary Care Provider Encounter Details Date Type Department Care Team (Late st Contact Info) Description 04/08/2021 Lab Requisition [facility] [address] [place] [address] Isha Brown APRN [address] [place] [address] Persons encountering health services in [...] Date Recorded PHQ-2 Total Score 1 03/24/2021 [facility] - [facility]ational [...] Date/Time Associated Diagnosis Comments BLOOD GAS, ARTERIAL ([facility]) Routine 04/08/2021 12:44 PM EST documented in this encounter Results * (ABNORMAL) Blood gas, arterial () (04/08/2021 12:44 PM EST) pH Arterial 7.37 7.35 - 7.45 units 04/08/2021 12:54 PM [facility] pCO2, Arterial 49(H) 32 - 48 mmHg 04/08/20 21 12:54 PM [facility] pO2, Arterial 65(L) 83 - 108 mmHg 04/08/2021 12:54 PM [facility] O2 Sat, Arterial 89(L) 94 - 98 % 04/08/20 12:54 PM [facility] Calculated HCO3, Arterial 27.5 21.0 - 28.0 mmol/L 04/08/2021 12:54 PM [facility] Base Excess, Arterial 2 -2 - 3 mmol/L 04/08/2021 12:54 PM [facility] Patient Temperature 37.0 Celsius 04/08/2021 12:54 PM EST [facility]IC[facility] FIO2 21 % 04/08/2021 12:54 PM EST [facility] Blood, Arterial 04/08/2021 1 2:44 PM EST 04/08/2021 12:45 PM EST us Isha Brown [facility] [employer] LAB BLOOD ORDERABL ES Final Result Performing Organization Address City/State/[facility] de Phone Number [facility]ICINE [address] [place] [address] documented in this encounter Visit Diagnoses Diagnosis [...] documented as of this encounter Care Teams Rail Transportation Tabeler Relationship Specialty Start Date End Date Deep Pruitt APRN PCP - General 05/22/19 documented as of this encounter
--- OUTSIDE RECORDS SUMMARY | 2025-01-14 16:26 | XMS_ITS ---
Author Organization [employer] Address [address] [facility] 7t [place] [address] Care Team Providers Care Instructional Supervisor Name Role Phone Katrin Santoyo MD Primary Care Pro vider Edison Vieira MD Unavailable [phone] Joe Devi MD Unavailable [phone] Chuy Mcmanus MD Unavailable Sveta Lazaro RN Unavailable [phone] Leslie Kline Unavailable CHW Complex Status:Outreach In Progress (Enrolling) Start date:11/29/2024 Enrollment reason:ADT Feed Overview [facility] ED 11/28/24. Please outreach for enrollment. Case Team Name Relationship Phone Leslie Kline(Responsible Staff) [phone] Continued Care and Services Coordination
--- OUTSIDE RECORDS SUMMARY | 2025-01-14 16:27 | XMS_ITS | Encounter Summary ---
Author Organization [employer] Address [address] [facility] [address] [place] [address] Care Team Providers Care Spd Manager Name Role Phone Katrin Santoyo MD Primary Care Pro vider Edison Vieira MD Unavailable [phone] Joe Devi MD Unavailable [phone] Chuy Mcmanus MD Unavailable Sveta Lazaro RN Unavailable [phone] Leslie Kline Unavailable Reason for Visit * Reason Comments Care Coordination CM/CHW appt reminder Encounter Details Date Type Department Care Team (Latest Contact Info) Description 01/13/2025 Patient Outreach [facility] [address] [place] [address] Katrin Santoyo MD [address] [place] [address] Care Coordination (CM/CHW appt reminder) Social History Tobacco Use Types Packs/Day Years [...] as of this encounter Progress Notes * Leslie Kline - 01/13/2025 1:22 PM EDT CHW Leslie Kline placed outbound call to patient introducing herself from [facility] CM Department, in regards to remind patient of Adult Complex Care program [facility] @ 10AM via telephone with CM Sveta Lazaro RN. Patient's name and was confirmed. Patient is aware and confirmed will be available for call and has no barriers on attending call. Patient verbalized understanding and agrees with plan. documented in this encounter Plan of Treatment Not on file documented as of this encounter Goals Goal Patient Goal Type Associated Problems Recent Progress Patient-Stated? Author Blood Pressure < 140/90 Blood Pressure 149/75(2024 1:05 PM EDT) No Eve Guzman, PharmD Hemoglobin A1c < 7 Result Component 9(11/01/2024 1:35 PM EDT) No Eve Guzman, Diane documented as of this encounter Visit Diagnoses Not on filedocumented in this encounter Additional Health Concerns Assessment Noted Time PHQ-9 Depression Total Score: 21 025 2:47 PM EDT documented as of this encounter Care Teams Spd Manager Relationship Specialty Start Date End Date Katrin Santoyo MD [address] [place] [address] PCP - General Internal Medicine 12/13/22 Edison Vieira MD [address] [place] [address] Pulmonary Disease 04/07/24 Joe Devi MD [address] [place] [address] 3rd [place] [address] Gastroenterology 04/07/24 Chuy Mcmanus MD [address] [place] [address] [place] [address] Bariatrics 09/25/24 Sveta Lazaro, CASIE [address] [place] [address] Registered Nurse Family Medicine 11/29/24 Leslie Kline 11/29/24 Carito Roche DNP [address] [facility], [address] [place] [address] Nephrology 04/07/24 [facility] 12/14/24 documented as of this encounter
--- OUTSIDE RECORDS SUMMARY | 2025-01-14 16:27 | XMS_ITS | Clinical Summary ---
Author Organization [facility] Address [address] [facility] [address] [place] [address] Phone Care Team Providers Care Audio Video Repairer Name Role Phone Katrin Brumfield Primary Care [...] tablet 3 4 Active ergocalciferol 1.25 MG (77053 UT) capsule Take 1 capsule (50,000 Units [...] information and pathology of colonospcy in [facility] 09-09-2020 note Asthma 01/06/2023 01/25/2023 Arthritis [...] AM with Arben Fountain DPM at the [facility] -Will f/u with Pt in a month [...] (see MRI of Brain from 2017 under [facility] -Significant deficits on neurologic exam Memory loss and Left handed weakness -Imaging and prior evaluation -Current blood thinning agents is aspirin -Potential details to include, when relevant: poor GAIT, uses a walker to get around -How the diagnosis was made: Pt lived in [facility] at the time, Under Multimedia in [facility] see specific file at specific date [id number].TIF Image MRI Result [facility] - MRI BRAIN CVA -09/25/2016 [id number].TIF Image Evaluation [facility]- Left handed weakness note [...] 2019, the Pt needs to call the [facility] [address] [place] [address] Diabetic foot 02/07/2019 01/25/2023 01/25/2023 Overview (01/25/2023): Last Assessment & Plan: The Pt continues to deal with bilateral foot pain and wears a pair of Diabetic shoes with specification ordered by his Educational Recruiter Doctor Patient encounter status 02/07/2019 01/25/2023 Overview [...] -Pt will be called biweekly by the [facility] Nurse to review his FBS finger [...] medications -He has been following with the [facility] team and reports taking all of [...] decided to move [place] back to [place] area due to being closer to family [...] Care Team (Late st Contact Info) Description 01/23/2025 2:30 PM EDT Office Visit [facility] [address] [place] [phone] Juvenal Connors MD [address] [place] [phone] Health Maintenance Due Date Last Done Comments [...] 49 Years) Discontinued 03/24/2022, 01/21/2021 [place] Care Teams Audio Video Repairer Relationship Specialty Start Date End Date Katrin Brumfield [address] [place] [address] PCP - General 04/17/23
--- OUTSIDE RECORDS SUMMARY | 2025-01-14 16:27 | XMS_ITS | Encounter Summary ---
Author Organization [facility] Address [address] [place] [address] Care Team Providers Care Hydroelectric Operator Name Role Phone Deep Pruitt APRN Primary Care Provider Reason for Visit * Reason Comments Medication Refill Encounter Details Date Type Department Care Team ([facility] st Contact Info) Description 01/29/2021 Refill [facility] [address] [place], [place] [phone] Deep Pruitt APRN [address] [place] [address] Medication Refill Social History Tobacco [...] Date Recorded PHQ-2 Total Score 6 01/21/2021 [facility] [...] documented as of this encounter Care Teams Hydroelectric Operator Relationship Specialty Start Date End Date Deep Pruitt APRN PCP - General 05/22/19 documented as of this encounter
--- OUTSIDE RECORDS SUMMARY | 2025-01-14 16:27 | XMS_ITS | Encounter Summary ---
Author Organization [facility] Address [address] [place] [address] Care Team Providers Care Wildlife Conservation Officer Name Role Phone Deep Pruitt JOHN Primary Care Provider Encounter Details Date Type Department Care Team (Late st Contact Info) Description 04/05/2017 Scanned Document [facility] [address] [place], [place] [phone] Francisco Veloz PA [address] [place] [phone] Social History Tobacco Use Types Packs/Day [...] documented as of this encounter Care Teams Wildlife Conservation Officer Relationship Specialty Start Date End Date Deep Pruitt APRN PCP - General 05/22/19 documented as of this encounter
--- OUTSIDE RECORDS SUMMARY | 2025-01-14 16:27 | XMS_ITS | Clinical Summary ---
Author Organization [employer] Address [address] [facility] [place] [address] Care Team Providers Care Probation Counselor Name Role Phone Katrin Santoyo MD Primary Care Pro vider Edison Vieira MD Unavailable [phone] Joe Devi MD Unavailable [phone] Chuy Mcmanus MD Unavailable Sveta Lazaro RN Unavailable [phone] Leslie Kline Unavailable Allergies Active Allergy Reactions Criticality Noted Date Comments Amlodipine Swelling 03/28/2021 Other reaction(s): Edema Pt develops lower leg swelling Pt develops lower leg swelling Penicillin G Angioedema 12/09/2022 Penicillins Itching Medium 12/10/2018 Medications * This document contains information received from the source organization and may not represent a complete record from that organization. ziprasidone (Geodon) 80 MG capsule Take 1 capsule by mouth at bedtime. 023 Active Continuous Blood Gluc Sensor (Dexcom G7 Sensor) misc 023 Active Ventolin HFA 108 (90 Base) MCG/ACT inhalerIndicati ons:Moderate persistent asthma without complication Inhale 2 puffs every 4 (four) hours if needed for wheezing. 18 g 3 023 Active clonazePAM (KlonoPIN) 0.5 MG tablet 1 tab TID 023 Active divalproex (Depakote ER) 500 MG 24 hr tablet Take 2 tablets by mouth at bedtime 023 Active Blood Glucose Monitoring Suppl ([employer] [place] Lite) w/Device kitIndications: Type 2 diabetes mellitus with diabetic nephropathy, with long-term current use of insulin (CMS/HCC) Use to test blood sugar bid dx dm 1 kit Active capsaicin (Capzasin-HP) 0.1 % creamIndication s:Chronic radicular lumbar pain Apply thin layer by topical route up to 4 times daily as needed for pain. 45 g 3 Active omega-3 acid ethyl esters (Lovaza) 1 g capsule Take 2 capsules (2 g) by mouth 2 times daily. 120 capsule 11 Active Alpha-Lipoic Acid 600 MG capsule TAKE 1 CAPSULE BY MOUTH EVERY DAY 30 capsule 5 Active Ketotifen Fumarate 0.035 % solution PLACE 1 DROP INTO THE AFFECTED EYE(S) TWICE DAILY NEEDED FOR ALLERGIES 5 mL 1 Active lidocaine (Lidoderm) 5 % patch Apply 1 patch topically Once per day. 12 hours on and 12 hours off Active SSD 1 % cream Apply 1 Application. topically Once per day. Active FreeStyle lancetsIndicati ons:Type 2 diabetes mellitus with diabetic nephropathy, with long-term current use of insulin (CMS/[facility]) 1 each by Other route before breakfast, before lunch, before evening meal, and at bedtime. Use bid, dx type 2 diabetes 100 each Active Alcohol Swabs (B-D SINGLE USE SWABS REGULAR) pads Apply 1 Units topically 4 times daily. 100 each 11 Active B-D UF III MINI PEN NEEDLES 31G X 5 MM misc Use as instructed 100 each 11 Active FREESTYLE LITE test strip Use to test blood sugar as directed 100 each Active albuterol (2.5 MG/3ML) 0.083% nebulizer solutionIndicat ions:Moderate persistent asthma without complication Take 3 mL (2.5 mg) by nebulization every 4 (four) hours if needed for wheezing. 75 mL 3 024 2024 Active FT Lubricant Eye Drops 0.5 % ophthalmic solution INSTILL 1 DROP IN EACH EYE NEEDED DRY EYES 30 each 1 Active Aspirin Low Dose 81 MG chewable tablet CHEW 1 TABLET BY MOUTH ONCE DAILY EVERY MORNING 90 tablet 1 Active ezetimibe (Zetia) 10 MG tablet TAKE 1 TABLET BY MOUTH EVERY DAY IN THE MORNING 90 tablet 1 Active Nebulizers [facility] [place] nebulizer as instructed 1 each Active Respiratory Therapy Supplies (Nebulizer/Tubi ng/Mouthpiece) kit To be used with Nebulizer 1 kit Active atorvastatin (Lipitor) 80 MG tablet TAKE 1 TABLET BY MOUTH EVERY DAY 90 tablet 1 Active amLODIPine (Norvasc) 5 MG tablet TAKE 1 TABLET BY MOUTH EVERY DAY 90 tablet 1 Active triamcinolone (Kenalog) 0.1 % cream Apply topically if needed in the morning and at bedtime (pain and swelling). 30 g Active traMADol (Ultram) 50 MG tablet Take 50 mg by mouth every 12 (twelve) hours if needed for severe pain. Active traZODone (Desyrel) 150 MG tablet Take 150 mg by mouth at bedtime. Active glucose 4 g chewable tablet Chew 4 tablets (16 g) if needed for low blood sugar. 50 tablet 2 025 2025 Active urea (Carmol) 10 % cream Apply topically 2 times daily. 453 g 1 025 2025 Active calcitriol (Rocaltrol) 0.25 MCG capsule TAKE 1 CAPSULE BY MOUTH 3 TIMES A WEEK Active Diclofenac Sodium 1 % gelIndications: Chronic radicular lumbar pain APPLY A THIN LAYER (2 GRAMS) TOPICALLY THREE TIMES DAILY NEEDED FOR PAIN 100 g 1 Active febuxostat (Uloric) 40 MG tablet TAKE 1 TABLET BY MOUTH DAILY 90 tablet 1 Active carvedilol (Coreg) 25 MG tablet Take 0.5 tablets by mouth in the morning and 0.5 tablets in the evening. Active ammonium lactate (Lac-Hydrin) 12 % lotion Apply to feet every once daily and wear socks Active D-3-5 125 MCG (5000 UT) capsule Take 1 capsule by mouth Once per day. Active DULoxetine (Cymbalta) [address] capsule Take 1 capsule by mouth Once per day. Active Lantus SoloStar 100 UNIT/ML pen Inject 20 Units under the skin at bedtime. Active insulin lispro (HumaLOG) 100 UNIT/ML injection INYECTAR 2 A 10 UNIDADES DEBAJO DE LA PIEL ESTER VECES AL LUZ MARIA ANTES DE LAS COMIDAS DE ACUERDO A LA ESCALA DE INSULINA Active sodium polystyrene sulfonate (Kayexalate) powder Take 30 g by mouth 1 (one) time. Mix with water and drink once weeklyy Active torsemide (Demadex) 100 MG tablet Take 1 tablet by mouth 2 times daily. Active gabapentin (Neurontin) 100 MG capsule Take 2 capsules (200 mg) by mouth Once per day. 180 capsule 025 2025 Active Advair HFA 230-21 MCG/ACT inhalerIndicati ons:Moderate persistent asthma without complication INHALE 2 PUFFS BY MOUTH TWICE DAILY IN THE MORNING AND AT BEDTIME, RINSE MOUTH AFTER USING. 12 g 3 Active Spiriva Respimat 1.25 MCG/ACT inhalerIndicati ons:Moderate persistent asthma without complication INHALE 2 PUFFS BY MOUTH EVERY DAY IN THE MORNING, RINSE MOUTH AFTER USING. 4 g 3 Active acetaminophen (Tylenol Extra Strength) 500 MG tabletIndicatio ns:Acute bilateral low back pain without sciatica,Pain of left hip,Acute pain of right knee Take 2 tablets (1,000 mg) by mouth every 8 (eight) hours if needed for moderate pain for up to 10 days. 30 tablet 025 2024 Active HumuLIN R U-500 KWIKPEN 500 UNIT/ML CONCENTRATED injection Inject 135 units under the skin three times daily with meals 023 2024 Discontinued(M ed list cleanup (will not trigger notification to Pharmacy)) Jardiance 10 MG Take 1 tablet (10 mg) by mouth Once per day. 90 tablet 024 2024 Discontinued(O ther) Advair HFA 230-21 MCG/ACT inhalerIndicati ons:Moderate persistent asthma without complication INHALE 2 PUFFS BY MOUTH TWICE DAILY IN THE MORNING AND AT BEDTIME, RINSE MOUTH AFTER USING. 12 g 3 025 2024 Discontinued Spiriva Respimat 1.25 MCG/ACT inhalerIndicati ons:Moderate persistent asthma without complication INHALE 2 PUFFS BY MOUTH EVERY DAY IN THE MORNING 4 g 3 025 2024 Discontinued sodium polystyrene sulfonate (SPS) 30 GM/120ML suspension Mix 30 grams with water and drink once weekly 2024 Discontinued(M ed list cleanup (will not trigger notification to Pharmacy)) insulin glargine (Toujeo Max SoloStar) 300 UNIT/ML injection See Instructions, e11.9. 30 day supply. inject 120 units daily, # 13.5 mL, 5 Refills, Maintenance, 10/23/24 1:48:00 PM EDT, Solution, [facility], Partial fill upon patient request if the prescription is for a schedule II opioid drug., 176, cm, 10/14/24 15:25:00 EDT, Height 025 2024 Discontinued(M ed list cleanup (will not trigger notification to Pharmacy)) insulin lispro (HumaLOG KWIKPEN) 200 UNIT/ML solution pen-injector pen See Instructions, e11.9. up to 180 units daily, use as directed. 30 day supply, # 36 mL, 5 Refills, Maintenance, 10/23/24 1:52:00 PM EDT, [facility], Partial fill upon patient request if the prescription is for a schedule II opioid drug., 176, cm, 10/14/24 15:25:00 EDT, Height 025 2024 Discontinued(M ed list cleanup (will not trigger notification to Pharmacy)) furosemide (Lasix) 40 MG tabletIndicatio ns:Acute kidney injury superimposed on CKD (CMS/HCC) (CMS/[facility]),Prima ry hypertension Take 1 tablet (40 mg) by mouth 2 times daily. 60 tablet 025 2024 Discontinued(M ed list cleanup (will not trigger notification to Pharmacy)) carvedilol (Coreg) 25 MG tablet TAKE 1 TABLET BY MOUTH TWICE DAILY WITH BREAKFAST AND WITH DINNER 180 tablet 1 025 2024 Discontinued(M ed list cleanup (will not trigger notification to Pharmacy)) gabapentin (Neurontin) 100 MG capsuleIndicati ons:Bilateral foot pain TAKE 1 CAPSULE BY MOUTH TWICE DAILY 60 capsule 025 2024 Discontinued(O ther) cyclobenzaprine (Flexeril) 10 MG tablet Take 10 mg by mouth if needed in the morning, at noon, and at bedtime for muscle spasms. 025 2024 Discontinued(O ther) Active Problems Problem Noted Date Diagnosed Date Acute bilateral low back pain without sciatica 0 01/14/2025 Assessment & Plan (01/14/2025 3:15 PM EDT): Apply heat on affected area I prescribed acetaminophen as needed X-rays ordered patient will be contacted with results Continue with physical therapy Pain of left hip 01/14/2025 Assessment & Plan (01/14/2025 3:15 PM EDT): X-ray ordered patient will be contacted with results Acute pain of right knee 01/14/2025 Assessment & Plan (01/14/2025 3:15 PM EDT): X-ray ordered patient will be contacted with results ESRD (end stage renal disease) on dialysis 12/26 Moderate cognitive impairment 12/26/2024 Chronic pancreatitis, unspecified pancreatitis t ype 08/22/2024 Skin pruritus 08/22/2024 Lipoma 07/10/2024 Assessment & Plan (07/10/2024 2:47 PM EST): I refer patient to surgery Long-term current use of opiate analgesic 2023 Overview (08/13/2024): Medication: Tramadol 50mg Q8H PRN Indication: chronic radicular lumbar pain Last TIRE WRAPPER Agreement: 04/02/24 Additional considerations: BZO from outside [...] Continues on 2L oxygen - Followed by [facility] Pulm - Dr. Vieira Right foot pain [...] mellitus, labile 06/29/2023 Adrenal adenoma, right 05/18/2023 Chronic radicular lumbar pain 01/23/2023 Assessment & [...] of multiple topical analgesics after discussion with [facility] Pharmacist - meds sent to pharmacy [...] 2022, f/u appt 01/2023 Dental: Refer pt [facility] on 12/13/22 Moderate persistent asthma 11/07/2022 Overview (11/07/2022): -The Pt saw Pulmonology in [place] 3047805/21/2021 -stable with the use of Advair and [...] Will focus on improving diabetic control Discuss healthcare educator referral at next visit F/u 1 [...] cerebral atrophy to suggest a specific diagnosis. Microalbuminuric diabetic nephropathy 09/26/2019 Overview (11/07/2022): The [...] Plan: 11/16/2021 Sleep Apnea Report: IMPRESSION : -Obstructive sleep apnea (G47.33), very severe associated with hypoxemia and hypercapnia, all diagnostic time supine with only a short period of diagnostic REM: Diagnostic AHI 79 /hr, AHI4% 79 /hr, mean SpO2 87 %, billy SpO2 50 %, 37 % time with SpO2 < 89%, TcCO2 max of 54 mmHg. -Excellent response to positive airway pressure therapy in BPAP S mode, with optimal setting on this night seen at 17/10 cm. CPAP mode was not effective for treatment of sleep disordered breathing. RECOMMENDATIONS / PLAN : -Current [employer] recommendations for treatment of [...] S on 17/10 cm. - Following with [facility] Pulmonology - Dr. Vieira - Encouraged to [...] told him that it is not a long-term med. He will fu w PCP next [...] told him that it is not a manager terminal med. He will fu w PCP next week. Use heat to affected area Diabetes mellitus with diabetic nephropathy 12/09/2022 12/13/2022 History of colonoscopy 12/09/202201/23 Overview (12/09/2022): information and pathology of colonospcy in [facility] 09-09-2020 note Hyperlipidemia due to type 2 diabetes mellitus ([facility]) 12/09/2022 01/23/2023 Abnormal gait 12/09/2022 01/23/2023 [...] Encounters Date Type Department Care Team Description 01/14/2025 1:20 PM EDT Office Visit [facility] [address] [place] [phone] Katrin Leroy MD Acute bilateral low back pain without sciatica; Pain of left hip; Acute pain of right knee 01/14/2025 Travel 01/14/2025 Telephone [facility] [address] [place] [address] Katrin Santoyo MD Nurse Triage 01/14/[address] [address] Katrin Santoyo MD FYI 01/14/2025 Patient Outreach [facility] [address] [place] [address] Katrin Santoyo MD Care Management (C3CM- initial assessment/ enrollment. Not available.) 01/13/2025 Patient Outreach [facility] [address] [place] [phone] Katrin Santoyo MD Care Coordination (CM/CHW appt reminder) 01/08/2025 Patient Outreach [address] [address] Katrin Santoyo MD 12/31/[address] [address] Katrin Santoyo MD Call Back Request 12/28/2024 Refill [facility] [address] [facility] [place] [address] Isah Thomas DO Moderate persistent asthma without complication 12/26/2024 10:00 AM EDT Telemedicine [address] [address] Katrin Santoyo MD Primary hypertension (Primary Dx); Diabetes mellitus, labile ([facility]); Health care maintenance; ESRD (end stage renal disease) on dialysis ([facility]); Moderate cognitive impairment 12/26/[address] [address] Katrin Santoyo MD 12/26/[address] [address] Katrin Santoyo MD Appointment 12/26/2024 Travel 12/25/2024 Patient Outreach [address] [address] Katrin Santoyo MD Transition Of Care (Tcm) (RE: HDF RESCHEDULING ) 12/25/[address] [address] Katrin Santoyo MD Hospital Follow-up 12/25/[address] [address] Katrin Santoyo MD chart prep 12/25/[address] [address] Katrin Santoyo MD chartprep 12/25/2024 Patient Outreach [facility] [address] [place] [address] Katrin Santoyo MD Care Coordination (CM/CHW outreach) 12/24/2024 Telephone [facility] [address] [place] [address] Katrin Santoyo MD 12/23/2024 Orders Only GENERIC EXTERNAL DATA DEPARTMENT Provider, Generic External Data 12/19/2024 Telephone [facility] [address] [place] [address] Katrin Santoyo MD fyi 12/18/2024 Orders Only GENERIC EXTERNAL DATA DEPARTMENT Provider, Generic External Data 12/13/2024 Patient Outreach [facility] [address] [place] [address] Katrin Santoyo MD 12/13/2024 Patient Outreach [facility] [address] [place] [address] Katrin Santoyo MD Transition Of Care (Tcm) (HDF scheduled) 12/12/2024 Telephone [facility] [address] [place] [address] Katrin Santoyo MD verbal order needed 12/10/2024 Telephone [facility] [address] [place] [address] Katrin Santoyo MD Durable Medical Equipment 12/10/2024 Refill [facility] [address] [place] [address] Katrin Santoyo MD Chronic radicular lumbar pain 12/09/2024 Patient Outreach [facility] [address] [place] [address] Katrin Santoyo MD 12/09/2024 Patient Outreach [facility] [address] [place] [address] Katrin Santoyo MD 12/06/2024 Patient Outreach [facility] [address] [place] [address] Katrin Santoyo MD Care Management (C3CM- initial assessment/ enrollment. Not available.) 12/05/2024 Patient Outreach [address] [address] Katrin Santoyo MD Care Coordination (CM/CHW appt reminder) 12/04/2024 Patient Outreach [facility] [address] [place] [address] Katrin Santoyo MD Transition Of Care (Tcm) (HDF unscheduled ) 12/04/2024 Patient Outreach [address] [address] Katrin Santoyo MD 12/02/2024 Patient Outreach [address] [address] Katrin Santoyo MD Care Coordination (CM/CHW outreach) 11/29/2024 Patient Outreach [address] [address] Katrin Santoyo MD Care Coordination (CHW chart review) 11/29/2024 Patient Outreach [address] [address] Katrin Santoyo MD Care Management (CM- chart review) 11/29/2024 Patient Outreach [address] [address] Katrin Santoyo MD 11/28/[address] [address] Katrin Santoyo MD Nurse Triage 11/27/2024 Refill [facility] [address] [place] [phone] Katrina Ward NP Bilateral foot pain 11/26/[address] [address] Katrin Santoyo MD fyi 11/26/2024 Patient Outreach [address] [address] Katrin Santoyo MD Transition Of Care (Tcm) (HDF- Unscheduled unable to LVM (Message sent to team nurses and provider for review) ) 11/24/[address] [address] Katrin Santoyo MD 11/22/2024 11:15 AM EDT Office Visit [address] [address] Katrin Santoyo MD Bilateral lower extremity edema (Primary Dx); Acute kidney injury superimposed on CKD (CMS/HCC) ([facility]); Primary hypertension; Diabetes mellitus, labile ([facility]); Type 2 diabetes mellitus with stage 3 chronic kidney disease, with long-term current use of insulin, unspecified whether stage 3a or 3b CKD ([facility]); Bilateral leg edema; Right foot pain 11/22/2024 Travel 11/21/[address] [address] Katrin Santoyo MD Nurse Triage 11/21/[address] [address] Katrin Santoyo MD 11/21/[address] [address] Katrin Santoyo MD Prior Authorization 11/20/[address] [address] Katrin Santoyo MD Nurse Triage 11/19/2024 Results Follow-Up [address] [address] Katrin Santoyo MD Referral to Gastroenterology 11/18/2024 6:40 PM EDT Office Visit [facility] [address] [place] [phone] Michael Aranda MD Gout due to renal impairment, unspecified chronicity, unspecified site (Primary Dx) 11/15/2024 Telephone [facility] [address] [place] [address] Katrin Santoyo MD Prior Authorization 11/15/2024 Telephone [facility] [address] [place] [address] Katrin Santoyo MD 11/14/2024 Telephone [facility] [address] [facility] [address] Gabriela Rea RN 11/14/2024 [address] [address] Katrin Santoyo MD Call Back Request 11/14/[address] [place] [address] Shanna Henao MD 11/14/[address] [place] [address] Katrin Santoyo MD Results 11/12/2024 Results Follow-Up [address] [place] [address] Katrin Santoyo MD Urinalysis, Complete, with Reflex to Culture, Electrolyte Panel, BUN (Blood Urea Nitrogen), Additional followed-up results: 4 11/12/2024 Orders Only [address] [place] [address] Katrin Santoyo MD 11/12/2024 Travel 11/05/[address] [address] Katrin Santoyo MD Paperwork/Forms; Physical therapy [facility] referral 11/04/[address] [address] Marilu Martinez, official court reporter 11/01/2024 1:15 PM EDT Office Visit [address] [address] Katrin Santoyo MD Type 2 diabetes mellitus with stage 3 chronic kidney disease, with long-term current use of insulin, unspecified whether stage 3a or 3b CKD (CMS/HCC) (Primary Dx); Encounter for immunization; Colon cancer screening; Dysuria; Hyperlipidemia associated with type 2 diabetes mellitus (CMS/HCC); Primary hypertension; Diabetes mellitus, labile (CMS/HCC); Class 2 severe obesity due to excess calories with serious comorbidity and body mass index (BMI) of 38.0 to 38.9 in adult ([facility]); Chronic kidney disease (CKD) stage G3a/A3, moderately decreased glomerular filtration rate (GFR) between 45-59 mL/min/1.73 square meter and albuminuria creatinine ratio greater than 300 mg/g ([facility]); Health care maintenance; Memory loss 11/01/2024 Telephone [facility] [address] [place] [address] Katrin Santoyo MD Dme electric scooter 11/01/2024 Travel 10/31/2024 Telephone [facility] [address] [place] [address] Katrin Santoyo MD CHART PREP 10/31/2024 Telephone [facility] [address] [place] [address] Gabriela Rea RN 10/14/2024 1:20 PM EDT Office Visit [facility] [address] [place], [place] [phone] Katrina Ward NP Elevated blood pressure reading in office with diagnosis of hypertension (Primary Dx); Bilateral foot pain; Bilateral lower extremity edema from Last 3 Months Immunizations Immunization Administration [...] 9.6 oz) 01/14/2025 1:05 PM EDT Height 172.7 cm (5' 8 ) 11/22/2024 11:10 AM EDT Body Mass Index 34.45 11/22/2024 11:10 AM EDT Plan of Treatment Health Maintenance Due Date Last Done Comments CT Colonography 1970 Colonoscopy 1970 Colorectal Cancer Screening 1970 FIT DNA/Cologuard 1970 FIT 1970 FOBT 1970 Sigmoidoscopy 1970 Hepatitis A Vaccines (1 of 2 - Risk 2-dose series) 1989 Dental Oral Exam 02/15/2019 08/15/2018 Dental Prophylaxis 03/07/2019 09/04/2018 Dental X-Ray: Bitewings 08/17/2019 08/15/2018 Zoster Vaccines (1 of 2) 2020 Eye Exam 07/01/2021 07/01/2019 Dental X-Ray: Full Mouth 08/16/2021 08/15/2018 Influenza Vaccine (#1) 2025 , 01/23/2023, 03/24/2022, Additional history exists Diabetes: Hemoglobin A1C 02/01/2025 025, 08/22/2024, 03/27/2024, Additional history exists Depression Monitoring 05/03/2025 11/01/2024, 025 Lipid Panel 10/07/2025 10/07/2024, 0508/2023, 05/17/2023, Additional history exists Diabetes: Foot Exam 10/14/2025 10/14/2024, 10/14/2024, 02/12/2024, Additional history exists Alcohol/Substance Use Screening 11/01/2025 11/01/2024 Disability Screening 11/01/2025 11/01/2024 SDOH Screening 11/01/2025 11/01/2024 Tobacco Screening 11/22/2025 11/22/2024 DTaP/Tdap/Td Vaccines (3 - Td or Tdap) 03/24/2032 03/24/2022, 10/05/2016 RSV Patients and Patients Aged 60 years or older (1 - 1-dose 75+ series) 2045 Hepatitis B Vaccines Completed 04/05/2017, 10/05/2016, 08/17/2016 Pneumococcal Vaccine: 50+ Years Completed 03/24/2022, 03/24/2022, 01/21/2021 COVID-19 Vaccine Completed 02/01/2024, 12/2020, 08/28/2020, Additional history exists HIV Screening Completed 10/07/2024, 12/06/2022 Hepatitis C Screening Completed 10/07/2024, 023 HIB Vaccines Aged Out No longer eligi [...] Blood Pressure 149/75(2024 1:05 PM EDT) No Whit-Eve Grier, PharmD Hemoglobin A1c < 7 Result Component 9(11/01/2024 1:35 PM EDT) No Nemesios-Eve Grier, PharmD Procedures Procedure Name Priority Date/Time Associated Diagnosis Comments XR KNEE 4+ VIEWS RIGHT Routine 5 2:15 PM EDT Acute pain of right knee XR HIP 2 OR 3 VIEWS LEFT Routine 025 2:10 PM EDT Pain of left hip XR LUMBAR SPINE 2-3 VIEWS Routine 01/14/2025 2:09 PM EDT Acute bilateral low back pain without sciatica IR CVC INSERT CENTRAL TUNNEL Routine 12/23/2024 10:30 AM EDT IR US GUIDE VENOUS ACCESS Routine 12/23/2024 10:30 AM EDT GLUCOSE, WHOLE BLOOD Routine 12/23/2024 9:54 AM EDT APTT Routine 12/23/2024 9:35 AM EDT PROTHROMBIN TIME-INR Routine 12/23/2024 9:35 AM EDT CBC WITH AUTO DIFFERENTIAL Routine 12/23/2024 9:35 AM EDT CREATININE, SERUM Routine 12/18/2024 12: 34 PM EDT UREA NITROGEN (BUN) Routine 12/18/2024 1 2:34 PM EDT ELECTROLYTE PANEL Routine 12/18/2024 12: 34 PM EDT XR HIP LEFT WITH PELVIS 1 VIEW Routine 11/27/2024 4:52 AM EDT XR LUMBAR SPINE 2-3 VIEWS Routine 11/27/2024 4:43 AM EDT VAS US LOWER EXTREMITY VENOUS DUPLEX BILATERAL Routine 11/25/2024 10:05 AM EDT AMB REFERRAL TO GASTROENTEROLOGY Routine 11/14/2024 Colon cancer screening CREATININE, SERUM Routine 11/12/2024 1:4 8 PM EDT CALCIUM Routine 11/12/2024 1:48 PM EDT UREA NITROGEN (BUN) Routine 11/12/2024 1 :48 PM EDT ELECTROLYTE PANEL Routine 11/12/2024 1:4 8 PM EDT URINALYSIS, COMPLETE, WITH REFLEX TO CULTURE Routine 11/12/2024 1:48 PM EDT POCT URINALYSIS DIPSTICK Routine 025 2:33 PM EDT Dysuria POCT GLYCATED HEMOGLOBIN, TOTAL Routine 11/01/2024 1:35 PM EDT Type 2 diabetes mellitus with stage 3 chronic kidney disease, with long-term current use of insulin, unspecified whether stage 3a or 3b CKD (CMS/HCC) POCT GLUCOSE Routine 11/01/2024 1:31 PM EDT Type 2 diabetes mellitus with stage 3 chronic kidney disease, with long-term current use of insulin, unspecified whether stage 3a or 3b CKD (CMS/HCC) URINALYSIS, COMPLETE, WITH REFLEX TO CULTURE Routine 11/01/2024 12:00 AM EDT Dysuria XR FOOT 3+ VIEWS RIGHT Routine 1:14 PM EDT Bilateral foot pain XR FOOT 3+ VIEWS LEFT Routine 10/14/2024 1:12 PM EDT Bilateral foot pain HEPATITIS C AB W/REFL TO HCV RNA, QN, PCR Routine 10/07/2024 12:53 PM EDT Annual physical exam HIV 1/2 ANTIGEN/ANTIBODY, FOURTH GENERATION W/RFL Routine 10/07/2024 12:53 PM EDT Annual physical exam LIPID PANEL, STANDARD Routine 10/07/2024 12:53 PM EDT Annual physical exam PROPHYLAXIS - ADULT Routine 09/04/2018 1 2:00 AM EDT INTRAORAL - COMPLETE SERIES OF RADIOGRAPHIC IMAGES Routine 08/15/2018 12:00 AM EDT COMPREHENSIVE ORAL EVALUATION - NEW OR ESTABLISHED PATIENT Routine 08/15/2018 12:00 AM EDT from Last 3 Months or Most Recently Relevant to Health Maintenance Results * XR Knee 4+ Views Right (01/14/2025 2:15 PM EDT) Anatomical Region Laterality Modality Lower Extremities, Knee Right Radiogra [facility] Imaging 01/14/2025 2:15 PM EDT Narrative 01/14/2025 2:44 PM EDT [facility] [address] [place] [address] XRay Report Signed Patient: Darrel Hagan MR#: [id number] : 1970 Acct:[id number] Age/Sex: 54 / M ADM Date: 01/14/25 Loc: HO.CX Attending Dr: Katrin Kong MD Ordering Physician: Katrin Leroy MD Date of Service: 01/14/25 Procedure(s): XR knee RT 4V Accession Number(s): [id number] cc: Katrin Leroy MD Reason for Exam: [...] Kin Purdy MD 01/14/2025 02:42 PM EDT Dictated By: Kin Purdy MD Signed By: <Electronically signed by Kin Purdy MD in OV> 01/14/25 1442 DD/ 1415 TD/TT: 01/14/25 1430 Direct Care Staffer: Procedure Note Donotuseinterpreter, Image - 01/14/2025 [facility] [address] [place] [address] XRay Report Signed Patient: Darrel HaganMR#: [id number] : 1970Acct:[id number] Age/Sex: 54 / MADM Date: 01/14/25 Loc: HO.CX Attending Dr: Katrin Kong MD Ordering Physician: Katrin Leroy MD Date of Service: 01/14/25 Procedure(s): XR knee RT 4V Accession Number(s): [id number] cc: Katrin Leroy MD Reason for Exam: [...] Kin Purdy MD 01/14/2025 02:42 PM EDT Dictated By: Kin Purdy MD Signed By: <Electronically signed by Kin Purdy MD in OV> 01/14/25 1442 DD/ 1415 TD/TT: 01/14/25 1430 Direct Care Staffer: us Katrin Kong MD IMG XR PROCEDURES Fin al Result * XR Hip 2 or 3 Views Left (01/14/2025 2:10 PM EDT) Anatomical Region Laterality Modality Lower Extremities, Hip Left Radiograp hic Imaging 01/14/2025 2:10 PM EDT Narrative 01/14/2025 2:47 [place] [address] XRay Report Signed Patient: Darrel Hagan MR#: [id number] : 1970 Acct:[id number] Age/Sex: 54 / M ADM Date: 01/14/25 Loc: HO.HHCX Attending Dr: Katrin Kong MD Ordering Physician: Katrin Leroy MD Date of Service: 01/14/25 Procedure(s): XR hip LT min 2V Accession Number(s): [id number] cc: Katrin Leroy MD Reason for Exam: [...] 01/14/25 1443 DD/ 1410 TD/TT: 01/14/25 1430 Direct Care Staffer: Procedure Note Donotuseinterpreter, Image - 01/14/[address] [address] XRay Report Signed Patient: Darrel HaganMR#: [id number] : 1970Acct:[id number] Age/Sex: 54 / MADM Date: 01/14/25 Loc: HO.HHCX Attending Dr: Katrin Kong MD Ordering Physician: Katrin Leroy MD Date of Service: 01/14/25 Procedure(s): XR hip LT min 2V Accession Number(s): [id number] cc: Katrin Leroy MD Reason for Exam: [...] 01/14/25 1443 DD/ 1410 TD/TT: 01/14/25 1430 Direct Care Staffer: Katrin Kong MD IMG XR PROCEDURES Fin al Result * XR Lumbar Spine 2-3 Views (01/14/2025 2:09 PM EDT) Only the most recent of2 resultswithin the time period is included. Anatomical Region Laterality Modality Spine, L-spine Radiographic [facility] 01/14/2025 2:09 PM EDT Narrative 01/14/2025 2:48 [place] [address] XRay Report Signed Patient: Darrel Hagan MR#: [id number] : 1970 Acct:[id number] Age/Sex: 54 / M ADM Date: 01/14/25 Loc: HO.HHCX Attending Dr: Katrin Kong MD Ordering Physician: Katrin Leroy MD Date of Service: 01/14/25 Procedure(s): XR lumbar spine 2-3V Accession Number(s): [id number] cc: Katrin Leroy MD Reason for Exam: [...] 01/14/25 1445 DD/ 1409 TD/TT: 01/14/25 1430 Direct Care Staffer: Procedure Note Donotuseinterpreter, Image - 01/14/[address] [address] XRay Report Signed Patient: Darrel HaganMR#: [id number] : 1970Acct:[id number] Age/Sex: 54 / MADM Date: 01/14/25 Loc: HO.HHCX Attending Dr: Katrin Kong MD Ordering Physician: Katrin Leroy MD Date of Service: 01/14/25 Procedure(s): XR lumbar spine 2-3V Accession Number(s): [id number] cc: Katrin Leroy MD Reason for Exam: [...] 01/14/25 1445 DD/ 1409 TD/TT: 01/14/25 1430 Direct Care Staffer: us Katrin Kong MD IMG XR PROCEDURES Fin al Result * IR US Guide - Venous Access (12/23/2024 10:30 AM EDT) Anatomical Region Laterality Modality X-Ray Angiograph y 12/23/2024 10:3 0 AM EDT Narrative 12/23/2024 4:44 PM EDT [place] [address] Interventional Radiology Rpt Signed Patient: Darrel Hagan MR#: [id number] : 1970 Acct:[id number] Age/Sex: 54 / M ADM Date: 12/23/24 Loc: HO.[facility] Attending Dr: RENATO Shaver DNP Ordering Physician: Carito Roche DNP, FNP-BC Date of Service: 12/23/24 Procedure(s): IR us guide venous access Accession Number(s): [id number] cc: Carito Roche DNP, FNP-BC; Katrin Santoyo MD PROCEDURE: IR INSERTION OF TUNNEL CATHETER CLINICAL INFORMATION: Creatinine 4.0. Permacath for dialysis COMPARISON: None available. 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 Patient was placed supine on angiography table and preliminary ultrasound imaging to the left neck was obtained. An optimal site was selected and marked on the skin. The marked site was cleaned and draped in usual sterile manner. 1% lidocaine was injected at marked site. Under sterile ultrasound guidance a singlewall needle was advanced from the skin/marked site into left jugular vein. After obtaining venous return a thin guidewire was advanced and needle removed. A 5 Martiniquais dilator was placed over the guidewire and anchored to the drape. Approximately 1 gauze length lateral and inferior to the neck puncture one percent lidocaine was administered along the upper left anterior chest wall. A small skin incision was performed. The permacatheter connected to tunneler was tunneled through this anterior chest wall skin incision to the left anterior chest wall incision. The tunneler and the entire catheter was pulled through the left anterior neck incision tunneler was removed. The guidewire to the 5 Martiniquais neck was reviewed and replaced by 0.035 J-wire advanced into the IVC under fluoroscopy. The 5 Martiniquais pigtail was removed and the tract was dilated up to 16 Martiniquais dilator. A 16 Martiniquais dilator with peel-away sheath was introduced over the guidewire and the dilator and the guidewire was removed. The permacatheter was then inserted through the peel-away sheath. Holding the permacatheter in place the peel-away sheath was removed. A single fluoroscopy image was obtained over the left chest wall revealing the position of catheter in the proximal SVC is/brachiocephalic venous junction. The permacatheter was then flushed with saline followed by heparin. Absorbable sutures are placed along the left anterior neck and anterior chest wall incision surrounding the skin and the catheter to achieve hemostasis. Simple dressing with Steri-Strips were placed at the incision sites. IV vancomycin 1 g was administered during the exam as patient is allergic to penicillin. Conscious sedation was utilized during exam and patient monitored by the IV nurse and radiologist. All elements of maximal sterile barrier technique followed including use of cap, mask, sterile gown, sterile gloves, a sterile full body drape and hand hygiene. Also followed skin preparation with 2% chlorhexidine for cutaneous antisepsis, and sterile ultrasound preparation with sterile gel and probe cover when applicable. FINDINGS: On preliminary ultrasound imaging the left jugular vein is patent. Successful ultrasound and fluoroscopy-guided placement of a 27 cm long 12 Martiniquais permacatheter with the tip in the proximal SVC/brachiocephalic venous junction. Fluoroscopy time: 1.1 minute. Dose: 20.830 mGy. Electronically signed by: Huey Floyd MD 12/23/2024 04:41 PM EDT Dictated By: Huey Floyd MD Signed By: <Electronically signed by Huey Floyd MD in OV> 12/23/24 1641 DD/ 1030 TD/TT: 12/23/24 1247 Direct Care Staffer: LAYO Procedure Note Donotuseinterpreter, Image - 12/23/2024 [place] [address] Interventional Radiology Rpt Signed Patient: Darrel HaganMR#: [id number] : 1970Acct:[id number] Age/Sex: 54 / MADM Date: 12/23/24 Loc: HO.SSS Attending Dr: RENATO Shaver DNP Ordering Physician: Carito Roche DNP, FNP-BC Date of Service: 12/23/24 Procedure(s): IR us guide venous access Accession Number(s): [id number] cc: Carito oRche DNP, FNP-BC; Katrin Santoyo MD PROCEDURE: IR INSERTION OF TUNNEL CATHETER CLINICAL INFORMATION: Creatinine 4.0. Permacath for dialysis COMPARISON: None available. 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 Patient was placed supine on angiography table and preliminary ultrasound imaging to the left neck was obtained. An optimal site was selected and marked on the skin. The marked site was cleaned and draped in usual sterile manner. 1% lidocaine was injected at marked site. Under sterile ultrasound guidance a singlewall needle was advanced from the skin/marked site into left jugular vein. After obtaining venous return a thin guidewire was advanced and needle removed. A 5 Martiniquais dilator was placed over the guidewire and anchored to the drape. Approximately 1 gauze length lateral and inferior to the neck puncture one percent lidocaine was administered along the upper left anterior chest wall. A small skin incision was performed. The permacatheter connected to tunneler was tunneled through this anterior chest wall skin incision to the left anterior chest wall incision. The tunneler and the entire catheter was pulled through the left anterior neck incision tunneler was removed. The guidewire to the 5 Martiniquais neck was reviewed and replaced by 0.035 J-wire advanced into the IVC under fluoroscopy. The 5 Martiniquais pigtail was removed and the tract was dilated up to 16 Martiniquais dilator. A 16 Martiniquais dilator with peel-away sheath was introduced over the guidewire and the dilator and the guidewire was removed. The permacatheter was then inserted through the peel-away sheath. Holding the permacatheter in place the peel-away sheath was removed. A single fluoroscopy image was obtained over the left chest wall revealing the position of catheter in the proximal SVC is/brachiocephalic venous junction. The permacatheter was then flushed with saline followed by heparin. Absorbable sutures are placed along the left anterior neck and anterior chest wall incision surrounding the skin and the catheter to achieve hemostasis. Simple dressing with Steri-Strips were placed at the incision sites. IV vancomycin 1 g was administered during the exam as patient is allergic to penicillin. Conscious sedation was utilized during exam and patient monitored by the IV nurse and radiologist. All elements of maximal sterile barrier technique followed including use of cap, mask, sterile gown, sterile gloves, a sterile full body drape and hand hygiene. Also followed skin preparation with 2% chlorhexidine for cutaneous antisepsis, and sterile ultrasound preparation with sterile gel and probe cover when applicable. FINDINGS: On preliminary ultrasound imaging the left jugular vein is patent. Successful ultrasound and fluoroscopy-guided placement of a 27 cm long 12 Martiniquais permacatheter with the tip in the proximal SVC/brachiocephalic venous junction. Fluoroscopy time: 1.1 minute. Dose: 20.830 mGy. Electronically signed by: Huey Floyd MD 12/23/2024 04:41 PM EDT Dictated By: Huey Floyd MD Signed By: <Electronically signed by Huey Floyd MD in OV> 12/23/24 1641 DD/ 1030 TD/TT: 12/23/24 1247 Direct Care Staffer: LAYO [facility] External Provider IMG IR PROCEDURES Final Result * IR CVC Insert Central Tunnel (12/23/2024 10:30 AM EDT) Anatomical Region Laterality Modality Body X-Ray Angiograph y 12/23/2024 10:3 0 AM EDT Narrative 12/23/2024 4:44 PM EDT [address] [address] Interventional Radiology Rpt Signed Patient: Darrel Hagan MR#: [id number] : 1970 Acct:[id number] Age/Sex: 54 / M ADM Date: 12/23/24 Loc: HO.SSS Attending Dr: RENATO Shaver DNP Ordering Physician: Carito Roche DNP, FNP-BC Date of Service: 12/23/24 Procedure(s): IR cvc insert central tunnel Accession Number(s): [id number] cc: Carito Roche DNP, INDUSTRIAL COMMERCIAL GROUNDSKEEPER-; Katrin Santoyo MD PROCEDURE: IR INSERTION OF TUNNEL CATHETER CLINICAL INFORMATION: Creatinine 4.0. Permacath for dialysis COMPARISON: None available. 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 Patient was placed supine on angiography table and preliminary ultrasound imaging to the left neck was obtained. An optimal site was selected and marked on the skin. The marked site was cleaned and draped in usual sterile manner. 1% lidocaine was injected at marked site. Under sterile ultrasound guidance a singlewall needle was advanced from the skin/marked site into left jugular vein. After obtaining venous return a thin guidewire was advanced and needle removed. A 5 Martiniquais dilator was placed over the guidewire and anchored to the drape. Approximately 1 gauze length lateral and inferior to the neck puncture one percent lidocaine was administered along the upper left anterior chest wall. A small skin incision was performed. The permacatheter connected to tunneler was tunneled through this anterior chest wall skin incision to the left anterior chest wall incision. The tunneler and the entire catheter was pulled through the left anterior neck incision tunneler was removed. The guidewire to the 5 Martiniquais neck was reviewed and replaced by 0.035 J-wire advanced into the IVC under fluoroscopy. The 5 Martiniquais pigtail was removed and the tract was dilated up to 16 Martiniquais dilator. A 16 Martiniquais dilator with peel-away sheath was introduced over the guidewire and the dilator and the guidewire was removed. The permacatheter was then inserted through the peel-away sheath. Holding the permacatheter in place the peel-away sheath was removed. A single fluoroscopy image was obtained over the left chest wall revealing the position of catheter in the proximal SVC is/brachiocephalic venous junction. The permacatheter was then flushed with saline followed by heparin. Absorbable sutures are placed along the left anterior neck and anterior chest wall incision surrounding the skin and the catheter to achieve hemostasis. Simple dressing with Steri-Strips were placed at the incision sites. IV vancomycin 1 g was administered during the exam as patient is allergic to penicillin. Conscious sedation was utilized during exam and patient monitored by the IV nurse and radiologist. All elements of maximal sterile barrier technique followed including use of cap, mask, sterile gown, sterile gloves, a sterile full body drape and hand hygiene. Also followed skin preparation with 2% chlorhexidine for cutaneous antisepsis, and sterile ultrasound preparation with sterile gel and probe cover when applicable. FINDINGS: On preliminary ultrasound imaging the left jugular vein is patent. Successful ultrasound and fluoroscopy-guided placement of a 27 cm long 12 Martiniquais permacatheter with the tip in the proximal SVC/brachiocephalic venous junction. Fluoroscopy time: 1.1 minute. Dose: 20.830 mGy. Electronically signed by: Huey Floyd MD 12/23/2024 04:41 PM EDT RP Dictated By: Huey Floyd MD Signed By: <Electronically signed by Huey Floyd MD in OV> 12/23/24 1641 DD/ 1030 TD/TT: 12/23/24 1247 Direct Care Staffer: [facility] Procedure Note Donotuseinterpreter, Image - 12/23/2024 [place] [address] Interventional Radiology Rpt Signed Patient: Darrel Hagan#: [id number] : 1970Acct:[id number] Age/Sex: 54 / MADM Date: 12/23/24 Loc: HO.[facility] Attending Dr: RENATO Shaver DNP Ordering Physician: Carito Roche DNP, FNP-BC Date of Service: 12/23/24 Procedure(s): IR cvc insert central tunnel Accession Number(s): [id number] cc: Carito Roche DNP, FNP-BC; Katrin Santoyo MD PROCEDURE: IR INSERTION OF TUNNEL CATHETER CLINICAL INFORMATION: Creatinine 4.0. Permacath for dialysis COMPARISON: None available. 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 Patient was placed supine on angiography table and preliminary ultrasound imaging to the left neck was obtained. An optimal site was selected and marked on the skin. The marked site was cleaned and draped in usual sterile manner. 1% lidocaine was injected at marked site. Under sterile ultrasound guidance a singlewall needle was advanced from the skin/marked site into left jugular vein. After obtaining venous return a thin guidewire was advanced and needle removed. A 5 Martiniquais dilator was placed over the guidewire and anchored to the drape. Approximately 1 gauze length lateral and inferior to the neck puncture one percent lidocaine was administered along the upper left anterior chest wall. A small skin incision was performed. The permacatheter connected to tunneler was tunneled through this anterior chest wall skin incision to the left anterior chest wall incision. The tunneler and the entire catheter was pulled through the left anterior neck incision tunneler was removed. The guidewire to the 5 Martiniquais neck was reviewed and replaced by 0.035 J-wire advanced into the IVC under fluoroscopy. The 5 Martiniquais pigtail was removed and the tract was dilated up to 16 Martiniquais dilator. A 16 Martiniquais dilator with peel-away sheath was introduced over the guidewire and the dilator and the guidewire was removed. The permacatheter was then inserted through the peel-away sheath. Holding the permacatheter in place the peel-away sheath was removed. A single fluoroscopy image was obtained over the left chest wall revealing the position of catheter in the proximal SVC is/brachiocephalic venous junction. The permacatheter was then flushed with saline followed by heparin. Absorbable sutures are placed along the left anterior neck and anterior chest wall incision surrounding the skin and the catheter to achieve hemostasis. Simple dressing with Steri-Strips were placed at the incision sites. IV vancomycin 1 g was administered during the exam as patient is allergic to penicillin. Conscious sedation was utilized during exam and patient monitored by the IV nurse and radiologist. All elements of maximal sterile barrier technique followed including use of cap, mask, sterile gown, sterile gloves, a sterile full body drape and hand hygiene. Also followed skin preparation with 2% chlorhexidine for cutaneous antisepsis, and sterile ultrasound preparation with sterile gel and probe cover when applicable. FINDINGS: On preliminary ultrasound imaging the left jugular vein is patent. Successful ultrasound and fluoroscopy-guided placement of a 27 cm long 12 Martiniquais permacatheter with the tip in the proximal SVC/brachiocephalic venous junction. Fluoroscopy time: 1.1 minute. Dose: 20.830 mGy. Electronically signed by: Huey Floyd MD 12/23/2024 04:41 PM EDT RP Dictated By: Huey Floyd MD Signed By: <Electronically signed by Huey Floyd MD in OV> 12/23/24 1641 DD/ 1030 TD/TT: 12/23/24 1247 Direct Care Staffer: LAYO [facility] External Provider IMG IR PROCEDURES Final Result * (ABNORMAL) Glucose, Whole Blood (12/23/2024 9:54 AM EDT) Pathologist [facility] [place] Glucose, Whole Blood 126(H) 60 - 115 mg/dL [facility] Comment:METER #: [id number] 12/23/2024 9:54 AM EDT 12/23/2024 10:04 AM EDT Generic External Data Provider LAB BLOOD ORDERAB LES Final Result [facility] [address] [place] [phone] * (ABNORMAL) CBC auto differential (12/23/2024 9:35 AM EDT) Pathologist [facility] [place] White Blood Count 11.8(H) 4.8 - 10.8 X10*3/uL [facility] Red Blood Count 4.32(L) 4.60 - 5.80 X10*6/uL [facility] Hemoglobin 12.7(L) 14.0 - 18.0 g/dl [facility] Hematocrit 39.4(L) 42.0 - 52.0 % [facility] Mean Corpuscular Volume 91.2 80.0 - 98.0 fL [facility] Mean Corpuscular Hemoglobin 29.4 27.0 - 33.0 pg [facility] Mean Corpuscular HGB Conc 32.2 31.0 - 36.0 g/dl [facility] Red Cell Distribution Width 15.8 11.0 - 16.0 % [facility] Platelet Count 366 160 - 400 X10*3/uL [facility] Mean Platelet Volume 12.2 9.4 - 12.4 fL [facility] Neutrophils Percent Auto 65.7 45 - 73 % [facility] Imm Gran Pct Auto 0.6(H) 0.0 - 0.4 % [facility] Lymphocytes Percent Auto 14.8(L) 20 - 40 % [facility] Monocytes Percent Auto 11.0 2 - 11 % [facility] Eosinophils Percent Auto 6.6(H) 0 - 4 % [facility] Basophils Percent Auto 1.3 0 - 2 % [facility] NRBC Pct Auto 0.0 0.0 - 0.2 /100WBC [facility] Neutrophils Absolute Auto 7.8 2.0 - 8.3 x10*3/uL [facility] Imm Gran Abs Auto 0.07(H) 0.00 - 0.03 X10*3/uL [facility] Lymphocytes Absolute Auto 1.8 1.2 - 4.9 X10*3/uL [facility] Monocytes Absolute Auto 1.3(H) 0.1 - 1.2 X10*3/uL [facility] Eosinophils Absolute Auto 0.8(H) 0.0 - 0.4 X10*3/uL [facility] Basophils Absolute Auto 0.2 0.0 - 0.2 X10*3/uL [facility] NRBC Abs Auto 0.000 0.0 - 0.012 X10*3/uL [facility] 12/23/2024 9:35 AM EDT 12/23/2024 9:40 AM EDT us Generic External Data Provider LAB BLOOD ORDERAB LES Final Result [facility] [address] [place] [phone] * Partial Thromboplastin Time, Activated (APTT) (12/23/2024 9:35 AM EDT) Partial Thromboplastin Time 31.3 26.7 - 34.1 SEC [facility] 12/23/2024 9:35 AM EDT 12/23/2024 9:40 AM EDT Generic External Data Provider LAB BLOOD ORDERAB LES Final Result Performing Organization Address [facility] Co de Phone Number [facility] [address] [place] [phone] * (ABNORMAL) Prothrombin Time-INR (12/23/2024 9:35 AM EDT) Prothrombin Time 10.6(L) 10.9 - 12.4 SEC [facility] INTERNATIONAL NORM RATIO 0.9 0.9 - 1.1 [facility] Comment:INTERNATIONAL NORMAL IZED RATIO (INR) REFERENCE RANGES Reference RangeFor patients not on anticoagulant therapy: 0.9 - 1.1INR ranges for oral anticoagulanttherapy:For prevention and treatment of venous thrombosis and pulmonary embolism: 2.0 - 3.0For acute myocardial infarction with aspirin therapy: 2.0 - 3.0For acute myocardial infarction without aspirin therapy: 3.0 - 4.0For patients with mechanical prosthetic heart valves: 2.5 - 3.5 12/23/2024 9:35 AM EDT 12/23/2024 9:40 AM EDT [employer] External Data Provider LAB BLOOD ORDERAB LES Final Result Performing Organization Address [facility] Co de Phone Number [facility] [address] [place] [address] [phone] * (ABNORMAL) Creatinine, Serum (12/18/2024 12:34 PM EDT) Only the most recent of2 resultswithin the time period is included. Creatinine, Serum 10.22(HH) 0.5 - 1.4 mg/dL [facility] Comment:Critical value for t est(s): CREAT Results called to rufinoleah back by: CHRISTY Person calling:ALISON Date: 12/18/24Time:1434 Estimated Glomerular Filt Rate 5 [facility] Comment:Chronic Kidney Disea se: Estimated GFR < 60 mL/min/1.69h6Ctecyg Kidney Disease: Estimated GFR < 15 mL/min/1.73m2 12/18/2024 12:3 4 PM EDT 12/18/2024 12:34 PM EDT Generic External Data Provider LAB BLOOD ORDERAB LES Final Result Performing Organization Address [facility] Co de Phone Number [facility] [address] [place] [phone] * (ABNORMAL) BUN (Blood Urea Nitrogen) (12/18/2024 12:34 PM EDT) Only the most recent of2 resultswithin the time period is included. Urea Nitrogen (BUN) 109(H) 9 - 16 mg/dL [facility] 12/18/2024 12:3 4 PM EDT 12/18/2024 12:34 PM EDT Generic External Data Provider LAB BLOOD ORDERAB LES Final Result Performing Organization Address [facility] de Phone Number [facility] [address] [place] [phone] * (ABNORMAL) Electrolyte Panel (12/18/2024 12:34 PM EDT) Only the most recent of2 resultswithin the time period is included. Sodium 146(H) 135 - 145 mmol/L [facility] Potassium 4.5 3.3 - 5.1 mmol/L [facility] Chloride 109(H) 96 - 108 mmol/L [facility] Carbon Dioxide 21(L) 22 - 29 mmol/L [facility] Anion Gap 21(H) 12 - 20 [facility] 12/18/2024 12:3 4 PM EDT 12/18/2024 12:34 PM EDT us Generic External Data Provider LAB BLOOD ORDERAB LES Final Result [facility] [address] [place] [phone] * XR Hip left with Pelvis 1 view (11/27/2024 4:52 AM EDT) Anatomical Region Laterality Modality Lower Extremities, Hip Bilateral Radiograp hic Imaging 11/27/2024 4:52 AM EDT Narrative 11/27/2024 4:53 AM EDT [address] [address] XRay Report Signed Patient: Darrel Hagan MR#: [id number] : 1970 Acct:[id number] Age/Sex: 54 / M ADM Date: 11/27/24 Loc: HO.ED Attending Dr: Ordering Physician: Zena Saldivar MD Date of Service: 11/27/24 Procedure(s): XR hip LT w PEL1V Accession Number(s): [id number] cc: Zena Saldivar MD; Katrin Santoyo MD CLINICAL HISTORY: fall pain PELVIS AND LEFT HIP X-RAYS COMPARISON: CT abdomen/pelvis 06/22/2023. FINDINGS: A total of 3 views of the pelvis and left hip were obtained. The frontal view of the pelvis is significantly limited due to film overpenetration. No definitive evidence of an acute fracture or dislocation involving the pelvis and left hip. Mild degenerative changes are noted within the hip joints. Symphysis pubis and sacroiliac joints are unremarkable. 1.4 cm nonaggressive appearing, nonspecific sclerotic lesion is noted within the left iliac bone. IMPRESSION: 1. Significantly limited exam. No definite acute fracture or dislocation. 2. If there remains concern for an acute fracture, a CT scan of the pelvis would be advised for a more accurate assessment. This document has been electronically signed by: Arnulfo Martinez M.D. on 11/27/2024 04:52:07 Dictated By: Arnulfo Martinez MD Signed By: <Electronically signed by Arnulfo Martinez MD in OV> 11/27/24452 DD/ 1 TD/TT: 11/27/24451 Direct Care Staffer: Procedure Note Donotuseinterpreter, Image - 11/27/[address] [address] XRay Report Signed Patient: Darrel HaganMR#: [id number] : 1970Acct:[id number] Age/Sex: 54 / MADM Date: 11/27/24 Loc: HO.ED Attending Dr: Ordering Physician: Zena Saldivar MD Date of Service: 11/27/24 Procedure(s): XR hip LT w PEL1V Accession Number(s): [id number] cc: Zena Saldivar MD; Katrin Santoyo MD CLINICAL HISTORY: fall pain PELVIS AND LEFT HIP X-RAYS COMPARISON: CT abdomen/pelvis 06/22/2023. FINDINGS: A total of 3 views of the pelvis and left hip were obtained. The frontal view of the pelvis is significantly limited due to film overpenetration. No definitive evidence of an acute fracture or dislocation involving the pelvis and left hip. Mild degenerative changes are noted within the hip joints. Symphysis pubis and sacroiliac joints are unremarkable. 1.4 cm nonaggressive appearing, nonspecific sclerotic lesion is noted within the left iliac bone. IMPRESSION: 1. Significantly limited exam. No definite acute fracture or dislocation. 2. If there remains concern for an acute fracture, a CT scan of the pelvis would be advised for a more accurate assessment. This document has been electronically signed by: Arnulfo Martinez M.D. on 11/27/2024 04:52:07 Dictated By: Arnulfo Martinez MD Signed By: <Electronically signed by Arnulfo Martinez MD in OV> 11/27/24452 DD/ 1 TD/TT: 11/27/24451 Direct Care Staffer: [facility] External Provider IMG XR PROCEDURES Final Result * VASC US Lower Extremity Venous Duplex Bilateral (11/25/2024 10:05 AM EDT) 11/25/2024 10:0 5 AM EDT Narrative [facility] - 11/25/2024 10:35 AM EDT [address] [address] Ultrasound Report Signed Patient: Darrel Hagan MR#: [id number] : 1970 Acct:[id number] Age/Sex: 54 / M ADM Date: 11/25/24 Loc: HO.US Attending Dr: Katrin López MD Ordering Physician: Katrin Santoyo MD Date of Service: 11/25/24 Procedure(s): US venous duplex LE BI Accession Number(s): [id number] cc: Katrin Santoyo MD EXAMINATION: US TRIPLEX LOWER EXTREMITY, BILATERAL CLINICAL INFORMATION: Lower extremity edema bilaterally. COMPARISON: None available. TECHNIQUE: Color-flow triplex imaging with spectral analysis and compression Doppler were performed on the bilateral lower extremities. FINDINGS: As per technologist note, limited exam due to patient body habitus. Respiratory variation, normal compression and augmented flow are noted throughout the bilateral lower extremities. The visualized common femoral vein, superficial femoral vein, profunda femoral vein, popliteal vein and midcalf posterior tibial venous segments show no evidence of deep venous thrombosis bilaterally. The bilateral peroneal veins were not well seen, likely due to body habitus. There is no Conway's cyst. US/US venous duplex LE BI IMPRESSION: No evidence of deep venous thrombosis involving the bilateral lower extremities. Electronically signed by: Go Chance MD 11/25/2024 10:32 AM EDT Dictated By: Go Chance MD Signed By: <Electronically signed by Go Chance MD in OV> 11/25/24 1032 DD/ 1005 TD/TT: 11/25/24 1020 Direct Care Staffer: Procedure Note Donotuseinterpreter, Image - 11/25/[address] [address] Ultrasound Report Signed Patient: Darrel HaganMR#: [id number] : 1970Acct:[id number] Age/Sex: 54 / MADM Date: 11/25/24 Loc: HO.US Attending Dr: Katrin López MD Ordering Physician: Katrin Santoyo MD Date of Service: 11/25/24 Procedure(s): US venous duplex LE BI Accession Number(s): [id number] cc: Katrin Santoyo MD EXAMINATION: US TRIPLEX LOWER EXTREMITY, BILATERAL CLINICAL INFORMATION: Lower extremity edema bilaterally. COMPARISON: None available. TECHNIQUE: Color-flow triplex imaging with spectral analysis and compression Doppler were performed on the bilateral lower extremities. FINDINGS: As per technologist note, limited exam due to patient body habitus. Respiratory variation, normal compression and augmented flow are noted throughout the bilateral lower extremities. The visualized common femoral vein, superficial femoral vein, profunda femoral vein, popliteal vein and midcalf posterior tibial venous segments show no evidence of deep venous thrombosis bilaterally. The bilateral peroneal veins were not well seen, likely due to body habitus. There is no Conway's cyst. US/US venous duplex LE BI IMPRESSION: No evidence of deep venous thrombosis involving the bilateral lower extremities. Electronically signed by: Go Chance MD 11/25/2024 10:32 AM EDT Dictated By: Go Chance MD Signed By: <Electronically signed by Go Chance MD in OV> 11/25/24 1032 DD/ 1005 TD/TT: 11/25/24 1020 Direct Care Staffer: us Katrin López MD CV VASCULAR PROCE DURES Final Result [facility] [address] [place] [phone] * Referral to Gastroenterology (11/14/2024) us Katrin López MD OUTPATIENT REFERR AL ORDERABLES Final Result * (ABNORMAL) Urinalysis, Complete, with Reflex to Culture (11/12/2024 1:48 PM EDT) Only the most recent of2 resultswithin the time period is included. Color Urine Yellow [facility] Appearance Urine Cloudy [facility] PH 6.0 5.0 - 9.0 [facility] Glucose Urine UA >=1000(A) Negative mg/dL [facility] Urine Blood Small (1+)(A) Negative [facility] Specific [place] - Urine 1.025 1.005 - 1.025 [facility] Urine Protein >=1000 (4+)(A) Neg-Trace mg/dL [facility] Urine Ketones Negative Negative mg/dL [facility] Nitrite Urine Negative Negative [facility] Leukocyte Esterase Urine Negative Negative [facility] RBC Urine 3-5(A) 0 - 2 /HPF [facility] Urine WBC 0-5 0 - 5 /HPF [facility] Urine Squamous Epithelial Cell 0-2 0 - 2 /HPF [facility] Urine Bacteria None Seen None Seen [facility] Hyaline Casts, Urine 6-10 0 - 2 /LPF [facility] GRANULAR CASTS (#/HPF) IN URINE Present [facility] 11/12/2024 1:48 PM EDT 11/12/2024 5:14 PM EDT Narrative [facility] - 11/12/2024 5:44 PM EDT Urine, Clean Catch us Katrin López MD LAB URINE ORDERAB LES Final Result [facility] [address] [place], [place] [phone] * (ABNORMAL) Calcium (11/12/2024 1:48 PM EDT) Calcium 8.2(L) 8.4 - 10.2 mg/dL [facility] 11/12/2024 1:48 PM EDT 11/12/2024 5:13 PM EDT Generic External Data Provider LAB BLOOD ORDERAB LES Final Result [facility] [address] [place] [phone] * (ABNORMAL) POCT Urinalysis (11/01/2024 2:33 PM EDT) Color, UA Yellow Clarity, UA Clear Glucose, UA 4+ >500 Bilirubin, UA Negative Ketones, UA Negative Spec Grav, UA 1.025 Blood, UA Positive(A) Negative, None Detected Comment:moderate pH, UA 6.5 Protein, UA 2+ 125++ Comment:300 Urobilinogen, UA 0.2 Leukocytes, UA Negative Negative, Rare, Trace Nitrite, UA Negative Negative, None Detected QC Media Lot # [id number] Lot# Expiration Date , Urine 11/01/2024 2:33 PM EDT Katrin López MD POINT OF CARE IRAM T ENTER/EDIT ORDERABLES Final Result * (ABNORMAL) POCT HGB A1C (11/01/2024 1:35 PM EDT) Hemoglobin A1C 9.0(A) 4.0 - 5.7 % QC Media Lot # [id number] Lot# Expiration Date ,024 Blood 11/01/2024 1:35 PM EDT Katrin López MD POINT OF CARE IRAM T ENTER/EDIT ORDERABLES Final Result * POCT Glucose (11/01/2024 1:31 PM EDT) Glucose Blood, POC 130 60 - 200 mg/dL QC Media Lot # [id number] Lot# Expiration Date ,025 Blood Capillary blood specimen / Unknown 11/01/2024 1:31 PM EDT Result [facility] Katrin López MD POINT OF CARE IRAM T ENTER/EDIT ORDERABLES Final Result * XR Foot 3+ Views Right (10/14/2024 1:14 PM EDT) Anatomical Region Laterality Modality Lower Extremities, Foot Right Radiogra phic Imaging 10/14/2024 1:14 PM EDT Narrative 10/14/2024 2:26 PM EDT [address] [address] XRay Report Signed Patient: Darrel Hagan MR#: [id number] : 1970 Acct:[id number] Age/Sex: 54 / M ADM Date: 10/14/24 Loc: HO.HHCX Attending Dr: Billy Martínez MD Ordering Physician: Billy Martínez MD Date of Service: 10/14/24 Procedure(s): XR foot RT min 3V Accession Number(s): [id number] cc: Billy Martínez MD EXAMINATION: XR FOOT, RIGHT CLINICAL INFORMATION: 3-day duration of bilateral midfoot pain. Chronic edema. History of gout. COMPARISON: None available. TECHNIQUE: AP, lateral, and oblique views of the right foot. FINDINGS: No fracture, dislocation, or suspicious bone lesion. Normal bone mineralization. Normal alignment. Mild arthritic changes of the first MTP joint present with subtle marginal erosions suggesting gout. Normal plantar arch. There are small plantar and dorsal calcaneal spurs. No significant joint effusion. Soft tissues appear normal. XR/XR foot RT min 3V IMPRESSION: Mild changes of erosive arthropathy first MTP joint. Findings suggest gout. Electronically signed by: Go Chance MD 10/14/2024 02:24 PM EDT Dictated By: Go Chance MD Signed By: <Electronically signed by Go Chance MD in OV> 10/14/24 1424 DD/ 1314 TD/TT: 10/14/24 1400 Direct Care Staffer: Procedure Note Donotuseinterpreter, Image - 10/14/[address] [address] XRay Report Signed Patient: Darrel HaganMR#: [id number] : 1970Acct:[id number] Age/Sex: 54 / MADM Date: 10/14/24 Loc: HO.HHCX Attending Dr: Billy Martínez MD Ordering Physician: Billy Martínez MD Date of Service: 10/14/24 Procedure(s): XR foot RT min 3V Accession Number(s): [id number] cc: Billy Martínez MD EXAMINATION: XR FOOT, RIGHT CLINICAL INFORMATION: 3-day duration of bilateral midfoot pain. Chronic edema. History of gout. COMPARISON: None available. TECHNIQUE: AP, lateral, and oblique views of the right foot. FINDINGS: No fracture, dislocation, or suspicious bone lesion. Normal bone mineralization. Normal alignment. Mild arthritic changes of the first MTP joint present with subtle marginal erosions suggesting gout. Normal plantar arch. There are small plantar and dorsal calcaneal spurs. No significant joint effusion. Soft tissues appear normal. XR/XR foot RT min 3V IMPRESSION: Mild changes of erosive arthropathy first MTP joint. Findings suggest gout. Electronically signed by: Go Chance MD 10/14/2024 02:24 PM EDT Dictated By: Go Chance MD Signed By: <Electronically signed by Go Chance MD in OV> 10/14/24 1424 DD/ 1314 TD/TT: 10/14/24 1400 Direct Care Staffer: Billy Martínez MD IMG XR PROCEDURES Edited Result - Final * XR Foot 3+ Views Left (10/14/2024 1:12 PM EDT) Anatomical Region Laterality Modality Lower Extremities, Foot Left Radiogra phic Imaging 10/14/2024 1:12 PM EDT Narrative 10/14/2024 2:25 PM EDT [facility] [address] [place] [address] XRay Report Signed Patient: Darrel Hagan MR#: [id number] : 1970 Acct:[id number] Age/Sex: 54 / M ADM Date: 10/14/24 Loc: HO.HHCX Attending Dr: Billy Martínez MD Ordering Physician: Billy Martínez MD Date of Service: 10/14/24 Procedure(s): XR foot LT min 3V Accession Number(s): [id number] cc: Billy Martínez MD EXAMINATION: XR FOOT, LEFT CLINICAL INFORMATION: 3-day duration of bilateral midfoot pain. Chronic edema. History of gout. COMPARISON: None available. TECHNIQUE: AP, lateral, and oblique views of the left foot. FINDINGS: No fracture, dislocation, or suspicious bone lesion. Normal bone mineralization. Normal alignment. Joint spaces are preserved. No significant arthropathy. No erosions evident. There are small plantar and dorsal calcaneal spurs. No significant joint effusion. Soft tissues appear normal. XR/XR foot LT min 3V IMPRESSION: No acute findings left foot. Electronically signed by: Go Chance MD 10/14/2024 02:22 PM EDT Dictated By: Go Chance MD Signed By: <Electronically signed by Go Chance MD in OV> 10/14/24 1422 DD/ 1312 TD/TT: 10/14/24 1400 Direct Care Staffer: Procedure Note Donotuseinterpreter, Image - 10/14/[address] [address] XRay Report Signed Patient: Darrel Hagan#: [id number] : 1970Acct:[id number] Age/Sex: 54 / MADM Date: 10/14/24 Loc: HO.HHCX Attending Dr: Billy Martínez MD Ordering Physician: Billy Martínez MD Date of Service: 10/14/24 Procedure(s): XR foot LT min 3V Accession Number(s): [id number] cc: Billy Martínez MD EXAMINATION: XR FOOT, LEFT CLINICAL INFORMATION: 3-day duration of bilateral midfoot pain. Chronic edema. History of gout. COMPARISON: None available. TECHNIQUE: AP, lateral, and oblique views of the left foot. FINDINGS: No fracture, dislocation, or suspicious bone lesion. Normal bone mineralization. Normal alignment. Joint spaces are preserved. No significant arthropathy. No erosions evident. There are small plantar and dorsal calcaneal spurs. No significant joint effusion. Soft tissues appear normal. XR/XR foot LT min 3V IMPRESSION: No acute findings left foot. Electronically signed by: Go Chance MD 10/14/2024 02:22 PM EDT Dictated By: Go Chance MD Signed By: <Electronically signed by Go Chance MD in OV> 10/14/24 1422 DD/ 1312 TD/TT: 10/14/24 1400 Direct Care Staffer: us Billy Martínez MD IMG XR PROCEDURES Edited Result - Final * Hepatitis C Antibody with Reflex to HCV, RNA, Quantitative, Real-Time PCR (10/07/2024 12:53 PM EDT) Hepatitis C Antibody Nonreactive Nonreactive [facility] Comment:Antibodies to HCV no t detected; does not exclude early acuteHCV infection. Blood Venous blood specimen / Unknown 10/07/2024 12:53 PM EDT 10/07/2024 4:04 PM EDT us Katrin López MD LAB BLOOD ORDERAB LES Final Result [facility] [address] [place] [phone] * HIV-1/2 Antigen and Antibodies, Fourth Generation, with Reflexes (10/07/2024 12:53 PM EDT) HIV AB/AG Nonreactive Nonreactive [facility] Comment:HIV-1 p24 Ag and/or HIV-1/HIV-2 Ab not detected.A test result that is nonreactive does not exclude thepossibility of exposure to or infection with HIV-1 and/orHIV-2. Nonreactive results in this assay for individualswith prior exposure to HIV-1 and/or HIV-2 may be due toantigen and antibody levels that are below the limit ofdetection of this assay.The [employer] HIV Ag/Ab Combo assay result andsupplemental assay results should be interpreted inconjunction with the patient's clinical presentation,history and other laboratory results. If the results areinconsistent with clinical evidence, additional testing issuggested to confirm the result. Blood Venous blood specimen / Unknown 10/07/2024 12:53 PM EDT 10/07/2024 4:04 PM EDT us Katrin López MD LAB BLOOD ORDERAB LES Final Result [facility] [address] [place] [phone] * (ABNORMAL) Lipid Panel, Standard (10/07/2024 12:53 PM EDT) Triglycerides 209(H) <150 mg/dL [facility] Comment:Desirable Triglyceri de: less than 150 mg/dLBorderline High Triglyceride 150-199 mg/dLHigh Triglyceride: 200-499 mg/dLVery High Triglyceride: greater than or equal to 5OO mg/dL Cholesterol 295(H) <200 mg/dL [facility] Comment:Desirable Cholestero l: less than 200 mg/dLBorderline High Cholesterol: 200-239 mg/dLHigh Cholesterol: greater than 239 mg/dL LDL Cholesterol Calculated 197(H) <100 mg/dL [facility] Comment:Desirable LDL: less than 100 mg/dLNear Optimal/Above Optimal LDL: 110- 129 mg/dLBorderline High LDL: 130-159 mg/dLHigh LDL: 160-189 mg/dLVery High LDL: greater than or equal to 190 mg/dL HDL Cholesterol 57 >40 mg/dL [facility] Comment:Desirable HDL: great er than 40 mg/dL Note: This HDL assay may give artificially low results in patients with liver disease. Blood Venous blood specimen / Unknown 10/07/2024 12:53 PM EDT 10/07/2024 4:04 PM EDT Katrin López MD LAB BLOOD ORDERAB LES Final Result [facility] [address] [place] [phone] from Last 3 Months or Most Recently Relevant to Health Maintenance Insurance [facility] C3 DENTAL-[facility] MEDICAID STAND ADULT Care Teams Probation Counselor Relationship Specialty Start Date End Date Katrin Santoyo MD [address] [place] [phone] PCP - General Internal Medicine 12/13/22 Edison Vieira MD [address] [place] [address] Pulmonary Disease 04/07/24 Joe Devi MD [address] [place] [address] [address] [place] [address] Gastroenterology 04/07/24 Chuy Mcmanus MD [address] [place] [phone] Bariatrics 09/25/24 Sveta Lazaro, CASIE [address] [place] [phone] Registered Nurse Family Medicine 11/29/24 Leslie Kline 11/29/24 Carito Roche DNP [address] [facility], [address] [place] [address] Nephrology 04/07/24 [facility] 12/14/24
--- OUTSIDE RECORDS SUMMARY | 2025-01-14 16:27 | XMS_ITS | Encounter Summary ---
Author Organization [facility] Address [address] [place] [address] Care Team Providers Care Tissue Technician Name Role Phone ProvidenceDeep medina Niko LOPEZ Primary Care Provider Encounter Details Date Type Department Care Team (Late st Contact Info) Description 02/19/2020 Scanned Document [facility] [address], [place] [phone] Arben Fountain, NOLVIA [address] [place] [address] Social History Tobacco Use Types [...] Answer Date Recorded PHQ-2 Score 2 10/02/2019 [facility] of Occupat ional Health - Occupational Stress [...] documented as of this encounter Care Teams Tissue Technician Relationship Specialty Start Date End Date Deep Pruitt APRN PCP - General 05/22/19 documented as of this encounter
--- OUTSIDE RECORDS SUMMARY | 2025-01-14 16:27 | XMS_ITS | Encounter Summary ---
Author Organization [facility] Address [address] [place] [address] Care Team Providers Care Product Representative Name Role Phone Deep Pruitt JOHN Primary Care Provider Encounter Details Date Type Department Care Team (Late st Contact Info) Description 01/02/2017 Scanned Document [facility] [address] [place], [place] [phone] Francisco Veloz PA [address] [place] [address] Social History Tobacco Use Types [...] as of this encounter Care Teams Product Representative Relationship Specialty Start Date End Date Deep Pruitt APRN PCP - General 05/22/19 documented as of this encounter
--- OUTSIDE RECORDS SUMMARY | 2025-01-14 16:27 | XMS_ITS | Encounter Summary ---
Author Organization [facility] Address [address] [place] [address] Care Team Providers Care Grape Crusher Name Role Phone Deep Pruitt JOHN Primary Care Provider Encounter Details Date Type Department Care Team (Late st Contact Info) Description 02/13/2018 Scanned Document [facility] [address] [place], [place] [address] Francisco Veloz PA [address] [place] [phone] Social History Tobacco Use Types Packs/Day [...] documented as of this encounter Care Teams Grape Crusher Relationship Specialty Start Date End Date Deep Pruitt APRN PCP - General 05/22/19 documented as of this encounter
--- OUTSIDE RECORDS SUMMARY | 2025-01-14 16:27 | XMS_ITS | Encounter Summary ---
Author Organization [facility] Address [address] [place] [address] Care Team Providers Care Handbag Parts Cutter Name Role Phone FerdinandDeep medina Niko LOPEZ Primary Care Provider Encounter Details Date Type Department Care Team (Late st Contact Info) Description 02/19/2020 Scanned Document [facility] [address] [place], [place] [phone] Arben Fountain, NOLVIA [address] [place] [address] Social History Tobacco Use Types [...] Answer Date Recorded PHQ-2 Score 2 10/02/2019 [facility] [place] of Occupat ional Health - Occupational Stress [...] documented as of this encounter Care Teams Handbag Parts Cutter Relationship Specialty Start Date End Date Deep Pruitt APRN PCP - General 05/22/19 documented as of this encounter
--- OUTSIDE RECORDS SUMMARY | 2025-01-14 16:27 | XMS_ITS | Encounter Summary ---
Author Organization [employer] Address 75 [facility] 7t [place] [address] Care Team Providers Care Personal Caregiver Name Role Phone Katrin Santoyo MD Primary Care Pro vider Edison Vieira MD Unavailable [phone] Joe Devi MD Unavailable [phone] Chuy Mcmanus MD Unavailable Sveta Lazaro RN Unavailable [phone] Leslie Kline Unavailable Reason for Visit * Reason Onset Date Comments FYI 01/14/2025 Encounter Details Date Type Department Care Team (Late st Contact Info) Description 01/14/[address] [facility] MEDICINE [address] [place], [place] [phone] Katrin Santoyo MD [address] [place], [place] [phone] FY Social History Tobacco Use Types Packs/Day [...] the past 12 months, has t he [employer], gas, oil or water [employer] threatened to shut off services in your [...] Telephone Encounter - Taylor Thomas RN - 01/14/2025 10:37 AM EDT Noted * Telephone Encounter - Elian Kline - 01/14/2025 10:33 AM EDT Tc from Jessica with [facility] informing pt has been discharged him from home health services. If any questions you can contact Jessica at [phone]. documented in this encounter Plan of Treatment [...] as of this encounter Care Teams Personal Caregiver Relationship Specialty Start Date End Date Katrin Santoyo MD 230 [place] [address] PCP - General Internal Medicine 12/13/22 Edison Vieira MD 5 [place] [address] Pulmonary Disease 04/07/24 Joe Devi MD [address] [place] [address] 3rd [place] [address] Gastroenterology 04/07/24 Chuy Mcmanus MD [address] [place] [address] [place] [address] Bariatrics 09/25/24 Sveta Lazaro, RN [address] [place] [address] Registered Nurse Family Medicine 11/29/24 Leslie Kline 11/29/24 Carito Roche DNP 10 [facility], [address] [place] [address] Nephrology 04/07/24 [facility] 12/14/24 documented as of this encounter
--- OUTSIDE RECORDS SUMMARY | 2025-01-14 16:27 | XMS_ITS | Encounter Summary ---
Author Organization [employer] Address [address] [facility] [address] 7t [place] [address] Care Team Providers Care Campus Police Officer Name Role Phone Katrin Santoyo MD Primary Care Pro vider Edison Vieira MD Unavailable [phone] Joe Deiv MD Unavailable [phone] Chuy Mcmanus MD Unavailable Sveta Lazaro RN Unavailable [phone] Leslie Kline Unavailable Encounter Details Date Type Department Care Team (Latest Contact Info) Description 01/14/2025 Travel Social History Tobacco Use Types Packs/Day [...] Start Date End Date Katrin Santoyo MD [address] [place] [address] PCP - General Internal Medicine 12/13/22 Edison Vieira MD [address] [place] [address] Pulmonary Disease 04/07/24 Joe Devi MD [address] [place] [address] 3rd [place] [address] Gastroenterology 04/07/24 Chuy Mcmanus MD [address] [place], [place] [address] [place] [address] Bariatrics 09/25/24 Sveta Lazaro, RN [address] [place] [address] Registered Nurse Family Medicine 11/29/24 Leslie Klnie 11/29/24 Carito Roche DNP [address] [place] [address], [address] [place] [address] Nephrology 04/07/24 [facility] 12/14/24 documented as of this encounter
--- OUTSIDE RECORDS SUMMARY | 2025-01-14 16:27 | XMS_ITS | Encounter Summary ---
Author Organization [employer] Address 75 [facility] 7t [place] [address] Care Team Providers Care Screen Making Technician Name Role Phone Katrin Santoyo MD Primary Care Pro vider Edison Vieira MD Unavailable [phone] Joe Devi MD Unavailable [phone] Chuy Mcmanus MD Unavailable Sveta Lazaro RN Unavailable Leslie Kline Unavailable Reason for Visit * Reason Comments Med Refill Encounter Details Date Type Department Care Team (Late st Contact Info) Description 01/02/2023 Refill [facility] MEDICINE 230 [place] [address] Elise Stanford FNP Hemorrhoids, unspecified hemorrhoid type Social History Tobacco [...] documented as of this encounter Care Teams Screen Making Technician Relationship Specialty Start Date End Date Katrin Santoyo MD [address] [place] [address] PCP - General Internal Medicine 12/13/22 Edison Vieira MD [address] [place] [address] Pulmonary Disease 04/07/24 Joe eDvi MD [address] [place] [address] 3rd [place] [address] Gastroenterology 04/07/24 Chuy Mcmanus MD [address] [place] [address] [place] [address] Bariatrics 09/25/24 Sveta Lazaro RN [address] [place] [address] Registered Nurse Family Medicine 11/29/24 Leslie Kline 11/29/24 Carito Roche DNP [address] [place] [address], [address] [place] [address] Nephrology 04/07/24 [employer] 04/11/24 12/18/24 [facility] 12/14/24 documented as of this encounter
--- OUTSIDE RECORDS SUMMARY | 2025-01-14 16:27 | XMS_ITS | Encounter Summary ---
Author Organization [employer] Address 75 [facility] 7t [place] [address] Care Team Providers Care Accounts Administrator Name Role Phone Katrin Santoyo MD Primary Care Pro vider Edison Vieira MD Unavailable [phone] Joe Devi MD Unavailable [phone] Chuy Mcmanus MD Unavailable Sveta Lazaro RN Unavailable [phone] Leslie Kline Unavailable Reason for Visit * Reason Comments Care Management C3CM- initial assess ment/ enrollment. Not available. Encounter Details Date Type Department Care Team (Late st Contact Info) Description 01/14/2025 Patient Outreach [facility] MEDICINE 230 [place], [place] [phone] Katrin Santoyo MD 230 [place], [place] [phone] Care Management (C3CM- initial assessment/ enrollment. Not available.) Social History Tobacco Use Types Packs/Day Years [...] as of this encounter Progress Notes * Sveta Lazaro RN - 01/14/2025 10:01 AM EDT CM Sveta Lazaro RN placed outbound call to patient for agreed upon assessment time. No answer at this time. Unable to leave v/m. Message states the wireless caller you are calling is not available. Please try again later. CM/CHW will attempt contact with patient to reschedule missed initial assessment. documented in this encounter Plan of Treatment [...] as of this encounter Care Teams Accounts Administrator Relationship Specialty Start Date End Date Katrin Santoyo MD 230 [place] [address] PCP - General Internal Medicine 12/13/22 Edison Vieira MD 5 [place] [address] Pulmonary Disease 04/07/24 Joe Devi MD [address] [place] [address] 3rd [place] [address] Gastroenterology 04/07/24 Chuy Mcmanus MD [address] [place] [address] Bariatrics 09/25/24 Sveta Lazaro, CASIE [address] [place] [address] Registered Nurse Family Medicine 11/29/24 Leslie Kline 11/29/24 Carito Roche DNP 10 [facility], [address] [place] [address] Nephrology 04/07/24 [facility] 12/14/24 documented as of this encounter
--- OUTSIDE RECORDS SUMMARY | 2025-01-14 16:27 | XMS_ITS | Encounter Summary ---
Author Organization [facility] Address [address] [place] [address] Care Team Providers Care Ferryboat Pilot Name Role Phone Deep Pruitt JOHN Primary Care Provider [phone] Encounter Details Date Type Department Care Team (Late st Contact Info) Description 11/22/2017 Scanned Document [facility] [address] [place], [place] [phone] Francisco Veloz PA [address] [place] [address] Social History Tobacco Use Types [...] documented as of this encounter Care Teams Ferryboat Pilot Relationship Specialty Start Date End Date Deep Pruitt APRN PCP - General 05/22/19 documented as of this encounter
--- OUTSIDE RECORDS SUMMARY | 2025-01-14 16:27 | XMS_ITS | Encounter Summary ---
Author Organization [facility] Address [address] [place] [address] Care Team Providers Care Professor Of Theater Name Role Phone Deep Pruitt JOHN Primary Care Provider [phone] Encounter Details Date Type Department Care Team (Late st Contact Info) Description 02/12/2016 Scanned Document [facility] [address] [place] [address] Francisco Veloz PA [address] [place] [phone] Social History Tobacco Use Types Packs/Day [...] of this encounter Care Teams Professor Of Theater Relationship Specialty Start Date End Date Deep Pruitt APRN PCP - General 05/22/19 documented as of this encounter
--- OUTSIDE RECORDS SUMMARY | 2025-01-14 16:27 | XMS_ITS | Encounter Summary ---
Author Organization [facility] Address [address] [place] [address] Care Team Providers Care Application Analyst Name Role Phone Deep Pruitt JOHN Primary Care Provider [phone] Encounter Details Date Type Department Care Team (Late st Contact Info) Description 09/26/2016 Scanned Document [facility] [address] [place], [place] [phone] External, Provider Social History Tobacco Use Types [...] as of this encounter Care Teams Application Analyst Relationship Specialty Start Date End Date Deep Pruitt APRN PCP - General 05/22/19 documented as of this encounter
--- OUTSIDE RECORDS SUMMARY | 2025-01-14 16:27 | XMS_ITS | Encounter Summary ---
Author Organization [employer] Address 75 [facility] 7t [place] [address] Care Team Providers Care Cable Assembler And Swager Name Role Phone Katrin Santoyo MD Primary Care Pro vider Edison Vieira MD Unavailable [phone] Joe Devi MD Unavailable [phone] Chuy Mcmanus MD Unavailable Sveta Lazaro RN Unavailable [phone] Leslie Kline Unavailable Reason for Visit * Reason Onset Date Comments Hospital Follow-up 12/25/2024 Encounter Details Date Type Department Care Team (Late st Contact Info) Description 12/25/2024 Telephone [facility] MEDICINE 230 [place], [place] [phone] Katrin Santoyo MD [address] [place], [place] [phone] Hospital Follow-up Social History Tobacco Use Types Packs/Day Years [...] encounter Miscellaneous Notes * Telephone Encounter - Sarah Myers - 12/25/2024 3:33 PM EDT Tc from pt requesting to reschedule appt from 12/26 due to an emergency dialysis Contact pt at [phone] Need commercial artist lettering documented in this encounter Plan of Treatment Not on file documented as of this encounter Goals Goal Patient Goal Type Associated Problems Recent Progress Patient-Stated? Author Blood Pressure < 140/90 Blood Pressure 149/75(2024 1:05 PM EDT) No Piers-Gambl e, Vee, PharmD Hemoglobin A1c < 7 Result Component 9(11/01/2024 1:35 PM EDT) No Piers-Gambl e, Eve, PharmD documented as of this encounter Visit Diagnoses Not on filedocumented in this encounter Additional Health Concerns Assessment Noted Time PHQ-9 Depression Total Score: 21 025 2:47 PM EDT documented as of this encounter Care Teams Cable Assembler And Swager Relationship Specialty Start Date End Date Katrin Santoyo MD [address] [place] [address] PCP - General Internal Medicine 12/13/22 Edison Vieira MD 5 [place] [address] Pulmonary Disease 04/07/24 Joe Devi MD 11 [facility] 3rd [place] [address] Gastroenterology 04/07/24 Chuy Mcmanus MD [address] [place] [address] Bariatrics 09/25/24 Sveta Lazaro RN [address] [place] [address] Registered Nurse Family Medicine 11/29/24 Leslie Kline 11/29/24 Carito Roche DNP 10 [facility], [address] [place] [address] Nephrology 04/07/24 [facility] 12/14/24 documented as of this encounter
--- OUTSIDE RECORDS SUMMARY | 2025-01-14 16:27 | XMS_ITS | Encounter Summary ---
Author Organization [employer] Address [address] [facility] [address] 7t [place] [address] Care Team Providers Care Telehealth Director Name Role Phone Katrin Santoyo MD Primary Care Pro vider Edison Vieira MD Unavailable [phone] Joe Devi MD Unavailable [phone] Chuy Mcmanus MD Unavailable Sveta Lazaro RN Unavailable [phone] Leslie Kline Unavailable Reason for Visit * Reason Comments Med Refill Encounter Details Date Type Department Care Team (Late st Contact Info) Description 07/10/2024 Refill [facility] 230 [place], [place] [phone] June Jarvis, NILESH 230 [place] [address] Gout due to renal impairment, unspecified chronicity, [...] the past 12 months, has t he [employer], gas, oil or water [employer] threatened to shut off services in your [...] 9(11/01/2024 1:35 PM EDT) No Eve Guzman, PharmD documented as of this encounter Visit Diagnoses Diagnosis Gout due to renal impairment, unspecified chronicity, unspecified site documented in this encounter Additional Health Concerns Assessment Noted Time PHQ-9 Depression Total Score: 4 10/31/19 24 10:32 AM EDT documented as of this encounter Care Teams Telehealth Director Relationship Specialty Start Date End Date Katrin Santoyo MD [address] [place] [address] [phone] PCP - General Internal Medicine 12/13/22 Edison Vieira MD [address] [place] [address] [phone] Pulmonary Disease 04/07/24 Joe Devi MD [address] 3rd [place] [address] Gastroenterology 04/07/24 Chuy Mcmanus MD [address] [place] [address] [place] [address] Bariatrics 09/25/24 Sveta Lazaro, CASIE [address] [place] [address] Registered Nurse Family Medicine 11/29/24 Leslie Kline 11/29/24 Carito Roche DNP [address] [facility] [address] [facility] [address], [address] [place] [address] Nephrology 04/07/24 [employer] 04/11/24 12/18/24 [facility] 12/14/24 documented as of this encounter
--- OUTSIDE RECORDS SUMMARY | 2025-01-14 16:27 | XMS_ITS | Encounter Summary ---
Author Organization [employer] Address 75 [facility] 7t [place] [address] Care Team Providers Care Blind Teacher Name Role Phone Katrin Santoyo MD Primary Care Pro vider Edison Vieira MD Unavailable [phone] Joe Devi MD Unavailable [phone] Chuy Mcmanus MD Unavailable Sveta Lazaro RN Unavailable Leslie Kline Unavailable Reason for Visit * Reason Onset Date Comments Nurse Triage 01/14/2025 Encounter Details Date Type Department Care Team (Late st Contact Info) Description 01/14/2025 Telephone [facility] MEDICINE 230 [place], [place] [phone] Katrin Santoyo MD 230 [place], [place] [phone] Nurse Triage Social History Tobacco Use Types [...] the past 12 months, has t he [employer], gas, oil or water [employer] threatened to shut off services in [...] encounter Miscellaneous Notes * Telephone Encounter - Naty Benítez RN - 01/14/2025 11:00 AM EDT Called pt to triage, spoke to pt. Through [employer] Small Piece Cutter. Pt states just arriving to the [facility] center to be seen in the walk in for knee and hip pain after a fall. Advised to complete the visit andcall back if follow up needed. Pt understands and agrees with plan. Insurance verified. * Telephone Encounter - Elian Kline - 01/14/2025 10:36 AM EDT Symptom: Knee Pain - Not From Injury Outcome: Schedule an urgent appointment (within 1 hour) or talk to a nurse or provider soon Reason: Trouble walking Please contact pt at [phone]. (English Speaker) documented in this encounter Plan of Treatment [...] documented as of this encounter Care Teams Blind Teacher Relationship Specialty Start Date End Date Katrin Santoyo MD [address] [place] [address] PCP - General Internal Medicine 12/13/22 Edison Vieira MD [address] [place] [address] Pulmonary Disease 04/07/24 Joe Devi MD [address] [place] [address] 3rd [place] [address] Gastroenterology 04/07/24 Chuy Mcmanus MD [address] [place] [address] Bariatrics 09/25/24 Sveta Lazaro RN [address] [place] [address] Registered Nurse Family Medicine 11/29/24 Leslie Kline 11/29/24 Carito Roche DNP 10 [facility], [address] [place] [address] Nephrology 04/07/24 [facility] 12/14/24 documented as of this encounter
--- OUTSIDE RECORDS SUMMARY | 2025-01-14 16:27 | XMS_ITS | Clinical Summary ---
Author Organization [facility] Address [address] [place] [address] Phone Care Team Providers Care Guide Alpine Name Role Phone Physician, No Pcp Primary [...] Encounters Date Type Department Care Team Description 12/30/2024 Telephone Orthopedic Surgery - [place] 250 672 [facility] 250 [place] [address] Jan Amor DPM from Last 3 Months Immunizations Name Administration Dates Next Due Moderna SARS-CoV-2 COVID-19, mRNA, LNP-S, preservative free 08/28/2020,07/28/2020 Pfizer SARS-CoV-2 COVID-19, mRNA, LNP-S, preservative free 04/14/2021 Medical History Medical History Date Comments Diabetes mellitus ([facility] V24, [facility] V28) Hypertension REGI (obstructive sleep apnea) Social [...] Results * Annual BMP Blood Test (11/07/2023) [facility] Annual BMP Blood Test Abstracted Result [facility] Provider HEALTH MAINTENANCE Final Result * Lipid panel (09/19/2023) [facility] Triglycerides 0 mg/dL Comment:No interpretation Cholesterol 0 mg/dL Comment:No interpretation HDL 0 mg/dL Comment:No interpretation LDL Cholesterol 0 mg/dL Comment:No interpretation Blood Venous blood specimen / Unknown Result [facility] Historical Provider LAB BLOOD ORDERABLES Fauzia l Result * Urine Albumin Creatinine Ratio (05/19/2023) [facility] Urine Albumin Creatinine Ratio Abstracted Historical Provider HEALTH MAINTENANCE Final Result * Hemoglobin A1c (05/17/2023) Pathologist [facility] Hemoglobin A1C 0.0 % Comment:No interpretation Blood Venous blood specimen / Unknown Historical Provider LAB BLOOD ORDERABLES Fauzia l Result * HIV Screening (12/06/2022) Pathologist [facility] HIV Screening Abstracted Historical Provider HEALTH MAINTENANCE Final Result * Hepatitis C Screening (12/06/2022) Pathologist [facility] Hepatitis C Screening Abstracted Historical Provider HEALTH MAINTENANCE Final Result from Last 3 Months or Most Recently Relevant to Health Maintenance [place] Care Teams Guide Alpine Relationship Specialty Start Date End Date Physician, No Pcp PCP - General 04/08/24
--- OUTSIDE RECORDS SUMMARY | 2025-01-14 16:27 | XMS_ITS | Encounter Summary ---
Author Organization [employer] Address 75 [facility] 7t [place] [address] Care Team Providers Care Parking Station Attendant Name Role Phone Elise Stanford PAVING RAMMER Primary Care Provider Victoria Katrin Bustos MD Primary Care Pro vider Edison Vieira MD Unavailable [phone] Joe Devi MD Unavailable [phone] Chuy Mcmanus MD Unavailable Sveta Lazaro RN Unavailable [phone] Leslie Kline Unavailable Reason for Visit * Reason Onset Date Comments Referral 11/24/2022 Podiatry Encounter Details Date Type Department Care Team (Late st Contact Info) Description 11/24/2022 Telephone [facility] MEDICINE 230 [place] [address] Elise Stanford FNP Referral (Podiatry/) Social History Tobacco Use Types [...] Anne Ocasio - 11/29/2022 9:46 AM EDT Agricultural Service Worker re-faxed referral to Dr. Smith's office. Agricultural Service Worker called Dr. Smith's office and confirmed that referral was received. Agricultural Service Worker attempted to call patient twice to infirm that he may call to schedule his appt but did not answer and voicemail could not be left due to pt not having voicemail setup. Dr. Smith [address] [place] [address] FAX [phone] * Telephone Encounter - Elizabeth Melo - 11/24/2022 9:51 AM EDT Tc from patient requesting status on podiatry referral. Agricultural Service Worker provided address and phone number and patient [...] documented as of this encounter Care Teams Parking Station Attendant Relationship Specialty Start Date End Date Elise Stanford FNP PCP - General Family Medicine 11/24/22 12/12/22 Katrin Santoyo MD [address] [place] [address] [phone] PCP - General Internal Medicine 12/13/22 Edison Vieira MD [address] [place] [address] [phone] Pulmonary Disease 04/07/24 Joe Devi MD 11 [facility] 3rd [place] [address] Gastroenterology 04/07/24 Chuy Mcmanus MD [address] [place] [address] [place] [address] Bariatrics 09/25/24 Sveta Lazaro RN [address] [place] [address] Registered Nurse Family Medicine 11/29/24 Leslie Kline 11/29/24 Carito Roche DNP 10 [facility], [address] [place] [address] Nephrology 04/07/24 [employer] 04/11/24 12/18/24 [facility] 12/14/24 documented as of this encounter
--- OUTSIDE RECORDS SUMMARY | 2025-01-14 16:27 | XMS_ITS | Encounter Summary ---
Author Organization [facility] Address [address] [place] [address] Care Team Providers Care Head Filter Tank Tender Helper Name Role Phone Deep Pruitt JOHN Primary Care Provider Encounter Details Date Type Department Care Team (Late st Contact Info) Description 01/01/2018 Scanned Document [facility] [address] [place], [place] [phone] Francisco Veloz PA [address] [place] [phone] Social History Tobacco Use Types Packs/Day [...] as of this encounter Care Teams Head Filter Tank Tender Helper Relationship Specialty Start Date End Date Deep Pruitt APRN PCP - General 05/22/19 documented as of this encounter
--- OUTSIDE RECORDS SUMMARY | 2025-01-14 16:27 | XMS_ITS | Encounter Summary ---
Author Organization [facility] Address 75 [facility] 7t [place] [address] Care Team Providers Care Quality Process Engineer Name Role Phone Elise Stanford Primary Care Provider Victoria Katrin Bustos MD Primary Care Pro vider Edison Vieira MD Unavailable [phone] Joe Devi MD Unavailable [phone] Chuy Mcmanus MD Unavailable Sveta Lazaro RN Unavailable [phone] Leslie Kline Unavailable Encounter Details Date Type Department Care Team (Latest Contact Info) Description 09/04/2018 Abstract [facility] Dental, Provider, DDS Social History [...] on filedocumented in this encounter Care Teams Quality Process Engineer Relationship Specialty Start Date End Date Elise Stanford FNP PCP - General Family Medicine 11/24/22 12/12/22 Katrin Santoyo MD [address] [place] [address] PCP - General Internal Medicine 12/13/22 Edison Vieira MD [address] [place] [address] Pulmonary Disease 04/07/24 Joe Devi MD [address] 3rd [place] [address] Gastroenterology 04/07/24 Chuy Mcmanus MD [address] [place] [address] [place] [address] Bariatrics 09/25/24 Sveta Lazaro, CASIE [address] [place] [address] Registered Nurse Family Medicine 11/29/24 Leslie Kline 11/29/24 Carito Roche DNP 10 [facility], [address] [place] [address] Nephrology 04/07/24 [employer] 04/11/24 12/18/24 [facility] 12/14/24 documented as of this encounter
--- OUTSIDE RECORDS SUMMARY | 2025-01-14 16:27 | XMS_ITS | Encounter Summary ---
Author Organization [facility] Address [address] [place] [address] Care Team Providers Care Hydrocrane Operator Name Role Phone Deep Pruitt APRN Primary Care Provider Reason for Visit * Reason Comments Medication Refill Encounter Details Date Type Department Care Team ([facility] st Contact Info) Description 02/01/2021 Refill [facility] [address] [place], [place] [phone] Deep Pruitt APRN [address] [place] [address] Medication Refill Social History Tobacco [...] Date Recorded PHQ-2 Total Score 6 01/21/2021 [facility] [...] documented as of this encounter Care Teams Hydrocrane Operator Relationship Specialty Start Date End Date Deep Pruitt APRN PCP - General 05/22/19 documented as of this encounter
--- OUTSIDE RECORDS SUMMARY | 2025-01-14 16:28 | XMS_ITS | Encounter Summary ---
Author Organization [facility] [email or web address] and [facility] Address [address] [place] [address] Care Team Providers Care Stave Hewer Name Role Phone Deep Pruitt APRN Primary Care Provider Reason for Visit * Reason Onset Date Comments Medication Refill 10/12/2021 Encounter Details Date Type Department Care Team (Late st Contact Info) Description 10/12/2021 Refill [facility] at [address] 2nd [place] [address] Anahi Rossi, JOHN [address] [place] [address] Medication Refill Social History Tobacco [...] Date Recorded PHQ-2 Total Score 0 10/12/2021 [facility] of Occupat ional [employer] [...] documented as of this encounter Care Teams Stave Hewer Relationship Specialty Start Date End Date Deep Pruitt APRN PCP - General 05/22/19 documented as of this encounter
--- OUTSIDE RECORDS SUMMARY | 2025-01-14 16:28 | XMS_ITS | Encounter Summary ---
Author Organization [facility] Address [address] [place] [address] Care Team Providers Care Lumite Injector Name Role Phone Deep Pruitt APRN Primary Care Provider Reason for Visit * Reason Onset Date Comments Medication Refill 09/30/2021 Encounter Details Date Type Department Care Team (Late st Contact Info) Description 09/30/2021 [facility]ill [facility] [address] [facility] [address] [facility] 2nd [place] [address] Rubin Valderrama, [facility] [address] [place] [phone] Medication Refill Social History Tobacco Use Types [...] Date Recorded PHQ-2 Total Score 5 09/14/2021 [facility] of Occupat ional [facility] - [...] but unknown at home. Defer to [facility] pharmacy team for antihypertensive management. Current [...] documented as of this encounter Care Teams Lumite Injector Relationship Specialty Start Date End Date Deep Pruitt APRN PCP - General 05/22/19 documented as of this encounter
--- OUTSIDE RECORDS SUMMARY | 2025-01-14 16:28 | XMS_ITS | Encounter Summary ---
Author Organization [facility] Address [address] [place] [address] Care Team Providers Care Obiee Report Developer Name Role Phone Deep Pruitt APRN Primary Care Provider Reason for Visit * Reason Comments Medication Refill Encounter Details Date Type Department Care Team ([facility] st Contact Info) Description 11/05/2020 Refill [facility] [address] [place] [address] Deep Pruitt APRN [address] [place] [phone] Medication Refill Social History Tobacco Use [...] [facility] of Occupat ional [facility] - Occupational Stress Questionnaire Answer Date [...] documented as of this encounter Care Teams Obiee Report Developer Relationship Specialty Start Date End Date Deep Pruitt APRN PCP - General 05/22/19 documented as of this encounter
--- OUTSIDE RECORDS SUMMARY | 2025-01-14 16:28 | XMS_ITS | Encounter Summary ---
Author Organization [facility] Address [address] [place] [address] Care Team Providers Care Instrumentation Supervisor Name Role Phone Deep Pruitt APRN Primary Care Provider [phone] Reason for Visit * Reason Comments Medication Refill Encounter Details Date Type Department Care Team ([facility] st Contact Info) Description 11/11/2020 Refill [facility] [address] [place] [address] Deep Pruitt APRN [address] [place] [phone] Medication Refill Social History Tobacco Use [...] Answer Date Recorded PHQ-2 Score 2 07/07/2020 [facility] of Occupat ional [facility] - Occupational Stress Questionnaire Answer [...] documented as of this encounter Care Teams Instrumentation Supervisor Relationship Specialty Start Date End Date Deep Pruitt APRN PCP - General 05/22/19 documented as of this encounter
--- OUTSIDE RECORDS SUMMARY | 2025-01-14 16:28 | XMS_ITS | Encounter Summary ---
Author Organization [facility] [employer] and [facility] Address [address] [place] [phone] Care Team Providers Care Allergy Physician Name Role Phone Deep Pruitt APRN Primary Care Provider Reason for Visit * Reason Onset Date Comments Medication Refill 09/30/2021 Encounter Details Date Type Department Care Team (Late st Contact Info) Description 09/30/2021 Refill [facility] at [address] [address] [facility] 2nd [place] [address] Kaity Harris, AMBULANCE DISPATCHER [address] [place] [phone] Medication Refill Social History Tobacco Use Types [...] [facility] - Occupational Stress Questionnaire [...] documented as of this encounter Care Teams Allergy Physician Relationship Specialty Start Date End Date Deep Pruitt APRN PCP - General 05/22/19 documented as of this encounter
--- OUTSIDE RECORDS SUMMARY | 2025-01-14 16:28 | XMS_ITS | Encounter Summary ---
Author Organization [facility] Address [address] [place] [address] Care Team Providers Care Lapel Stitcher Name Role Phone McgrathDeep medina Niko LOPEZ Primary Care Provider Reason for Visit * Reason Comments Medication Refill Encounter Details Date Type Department Care Team ([facility] st Contact Info) Description 01/04/[address] [facility] [address] [facility] [address] [place] [phone] Zena Hines PA [address] [place] [phone] Medication Refill Social History Tobacco Use [...] documented as of this encounter Care Teams Lapel Stitcher Relationship Specialty Start Date End Date Deep Pruitt APRN PCP - General 05/22/19 documented as of this encounter
--- OUTSIDE RECORDS SUMMARY | 2025-01-14 16:28 | XMS_ITS | Encounter Summary ---
Author Organization [employer] Address [address] [facility] 7t [place] [address] Care Team Providers Care Fundraising Sale Representative Name Role Phone Katrin Santoyo MD Primary Care Pro vider Edison Vieira MD Unavailable [phone] Joe Devi MD Unavailable [phone] Chuy Mcmanus MD Unavailable Sveta Lazaro RN Unavailable [phone] Leslie Kline Unavailable Encounter Details Date Type Department Care Team (Late st Contact Info) Description 06/21/2023 Abstract [facility] [address] [place], [place] [phone] Katrin Santoyo MD [address] [place], [place] [phone] Social History Tobacco Use Types Packs/Day Years Used Date Smoking Tobacco: Never Passive Smoke Exposure: Never Smokeless Tobacco: Never Alcohol Use Standard Drinks/Week Comments Never 0 (1 standard drink = 0.6 oz pur e alcohol) Depression Answer Date Recorded Patient Health Questionnaire-9 Score 20 01/23/2023 Housing Stability Answer Date Recorded What is your housing situation today? I have madelyn sing 02/21/[address] you li [...] documented as of this encounter Care Teams Fundraising Sale Representative Relationship Specialty Start Date End Date Katrin Santoyo MD [address] [place] [address] PCP - General Internal Medicine 12/13/22 Edison Vieira MD [address] [place] [address] Pulmonary Disease 04/07/24 Joe Devi MD [address] [facility] 3rd [place] [address] Gastroenterology 04/07/24 Cuhy Mcmanus MD [address] [place] [address] [place] [address] Bariatrics 09/25/24 Sveta Lazaro RN [address] [place] [address] Registered Nurse Family Medicine 11/29/24 Leslie Kline 11/29/24 Carito Roche DNP [address] [place] [address], [address] [place] [address] Nephrology 04/07/24 [facility] 04/11/24 12/18/24 [facility] 12/14/24 documented as of this encounter
--- OUTSIDE RECORDS SUMMARY | 2025-01-14 16:28 | XMS_ITS | Encounter Summary ---
Author Organization [facility] Address [address] [place] [address] Care Team Providers Care Synchro Assembler Name Role Phone Deep Pruitt APRN Primary Care Provider Encounter Details Date Type Department Care Team ([facility] st Contact Info) Description 11/14/2020 Scanned Document [facility] [address] [place], [place] [phone] Deep Pruitt APRN [address] [place] [address] Social History Tobacco Use Types [...] documented as of this encounter Care Teams Synchro Assembler Relationship Specialty Start Date End Date Deep Pruitt APRN PCP - General 05/22/19 documented as of this encounter
--- OUTSIDE RECORDS SUMMARY | 2025-01-14 16:28 | XMS_ITS | Encounter Summary ---
Author Organization [facility] Address [address] [place] [address] Care Team Providers Care End Lathe Operator Name Role Phone Deep Pruitt APRN Primary Care Provider Reason for Visit * Reason Comments Medication Problem Encounter Details Date Type Department Care Team ([facility] Contact Info) Description 10/11/2021 Telephone [facility] [address] [place] [address] Deep Pruitt APRN [address] [place] [address] Medication Problem Social History Tobacco [...] 10/12/2021 [facility] of Occupat ional Health [...] 08 of October Spoke to sissy via asl interpreter #[id number] (patti) patient states she spoke to the [...] if patient [facility] [place] [facility] [address] . Best contact: [phone] documented in this encounter Plan of Treatment Not on file documented as of this encounter Visit Diagnoses Not on filedocumented in this encounter Additional Health Concerns Infection Onset Date Last Indicated Resolved Time COVID-19 09/29/2021 09/29/2021 10/19/2021 7:19 PM EDT Assessment Noted Time PHQ-9 Depression Total Score: 0 10/08/19 22 1:27 PM EDT documented as of this encounter Care Teams End Lathe Operator Relationship Specialty Start Date End Date Deep Pruitt APRN PCP - General 05/22/19 documented as of this encounter
--- OUTSIDE RECORDS SUMMARY | 2025-01-14 16:28 | XMS_ITS | Encounter Summary ---
Author Organization [facility] [employer] and [facility] Address [address] [place] [phone] Care Team Providers Care Dbas Name Role Phone Deep Pruitt APRN Primary Care Provider Reason for Visit * Reason Onset Date Comments Medication Refill 10/12/2021 Encounter Details Date Type Department Care Team (Late st Contact Info) Description 10/12/2021 Refill [facility] [address] [facility] [address] [facility] 2nd [place] [address] Taylor Malagon, [facility] [address] [place] [phone] Medication Refill Social History Tobacco Use Types [...] 10/12/2021 [facility] of Occupat ional [facility] - Occupational Stress Questionnaire Answer [...] documented as of this encounter Care Teams Dbas Relationship Specialty Start Date End Date Deep Pruitt APRN PCP - General 05/22/19 documented as of this encounter
--- OUTSIDE RECORDS SUMMARY | 2025-01-14 16:28 | XMS_ITS | Encounter Summary ---
Author Organization [employer] Address [address] [facility] 7t [place] [address] Care Team Providers Care Citrix Systems Administrator Name Role Phone Katrin Santoyo MD Primary Care Pro vider Edison Vieira MD Unavailable [phone] Joe Devi MD Unavailable [phone] Chuy Mcmanus MD Unavailable Sveta Lazaro RN Unavailable [phone] Leslie Kline Unavailable Reason for Visit * Reason Onset Date Comments Referral 04/05/2023 Encounter Details Date Type Department Care Team (Late st Contact Info) Description 04/05/2023 Telephone [facility] [address] [place], [place] [phone] Katrin Santoyo MD [address] [place], [place] [phone] Referral Social History Tobacco Use Types Packs/Day [...] Bhardwaj - 04/06/2023 10:27 AM EST Called [facility] for an update and they stated [...] Gastro made on 04/04/2023 sent to [address] [facility], states that they called facility and facility informs that their missing a summary form. Please contact pt at [phone] Amharic Speaker documented in this encounter Plan of Treatment Not on file documented as of this encounter Goals Goal Patient Goal Type Associated Problems Recent Progress Patient-Stated? Author Blood Pressure < 140/90 Blood Pressure 149/75(2024 1:05 PM EDT) No Piers-Eve Grier PharmD Hemoglobin A1c < 7 Result Component 9(11/01/2024 1:35 PM EDT) No Eve Guzman PharmD documented as of this encounter Visit Diagnoses Not on filedocumented in this encounter Additional Health Concerns Assessment Noted Time PHQ-9 Depression Total Score: 20 023 9:21 AM EDT documented as of this encounter Care Teams [employer] Systems Administrator Relationship Specialty Start Date End Date Katrin Santoyo MD [address] [place] [address] PCP - General Internal Medicine 12/13/22 Edison Vieira MD [address] [place] [address] Pulmonary Disease 04/07/24 Joe Devi MD [address] [place] [address] 3rd [place] [address] Gastroenterology 04/07/24 Chuy Mcmanus MD [address] [place] [address] Bariatrics 09/25/24 Sveta Lazaro, CASIE [address] [place] [address] Registered Nurse Family Medicine 11/29/24 Leslie Kline 11/29/24 Carito Roche DNP [address] [facility], [address] [place] [address] Nephrology 04/07/24 [facility] 04/11/24 12/18/24 [facility] 12/14/24 documented as of this encounter
--- OUTSIDE RECORDS SUMMARY | 2025-01-14 16:28 | XMS_ITS | Encounter Summary ---
Author Organization [facility] Address [address] [place] [address] Care Team Providers Care Career Manager Name Role Phone LodgepoleRomeliaDeep Niko LPOEZ Primary Care Provider Reason for Visit * Reason Onset Date Comments Medication Refill 10/12/2021 Encounter Details Date Type Department Care Team (Late st Contact Info) Description 10/12/2021 Refill [facility] [address] [place] [address] Cecile Oneal, DMD [address] [place] [address] Medication Refill Social History Tobacco [...] 10/12/2021 [facility] of Occupat ional Health - Occupational [...] documented as of this encounter Care Teams Career Manager Relationship Specialty Start Date End Date Deep Pruitt APRN PCP - General 05/22/19 documented as of this encounter
--- OUTSIDE RECORDS SUMMARY | 2025-01-14 16:28 | XMS_ITS | Encounter Summary ---
Author Organization [facility] [employer] [facility] and [facility] Address [address] [place] [address] Care Team Providers Care Service Tester Name Role Phone Deep Pruitt APRN Primary Care Provider Reason for Visit * Reason Onset Date Comments Medication Refill 09/20/2021 Encounter Details Date Type Department Care Team (Late st Contact Info) Description 09/20/2021 Refill [facility] [address] [facility] [address] [facility] 2nd [place] [address] Ricarda Du MD [address] [place] [phone] Medication Refill Social History Tobacco Use Types [...] Date Recorded PHQ-2 Total Score 5 09/14/2021 [facility] of Occupat ional Health - [...] as of this encounter Care Teams Service Tester Relationship Specialty Start Date End Date Deep Pruitt APRN PCP - General 05/22/19 documented as of this encounter
--- OUTSIDE RECORDS SUMMARY | 2025-01-14 16:28 | XMS_ITS | Encounter Summary ---
Author Organization [facility] Address [address] [place] [address] Care Team Providers Care Complaints Coordinator Name Role Phone Deep Pruitt APRN Primary Care Provider Reason for Visit * Reason Comments Other Appointment Encounter Details Date Type Department Care Team ([facility] Contact Info) Description 10/07/2021 Telephone [facility] [address] [place] [address] Deep Pruitt APRN [address] [place] [address] Other; Appointment Social History Tobacco [...] Date Recorded PHQ-2 Total Score 0 10/07/2021 [facility] of Occupat ional Health - [...] after dropped call ,patient has virtual appt [phone] documented in this encounter Plan of Treatment Not on file documented as of this encounter Visit Diagnoses Not on filedocumented in this encounter Additional Health Concerns Infection Onset Date Last Indicated Resolved Time COVID-19 09/29/2021 09/29/2021 10/19/2021 7:19 PM EDT Assessment Noted Time PHQ-9 Depression Total Score: 0 10/08/19 22 1:27 PM EDT documented as of this encounter Care Teams Complaints Coordinator Relationship Specialty Start Date End Date Deep Pruitt APRN PCP - General 05/22/19 documented as of this encounter
--- OUTSIDE RECORDS SUMMARY | 2025-01-14 16:28 | XMS_ITS | Encounter Summary ---
Author Organization [facility] Address [address] [place] [address] Care Team Providers Care Pin Cleaner Name Role Phone Deep Pruitt APRN Primary Care Provider Reason for Visit * Reason Comments Medication Refill Encounter Details Date Type Department Care Team ([facility] st Contact Info) Description 11/24/2020 Telephone [facility] [address] [place] [address] Deep Pruitt APRN [address] [place] [address] Medication Refill Social History Tobacco [...] of certain medication. Call back number is [phone] (scottish speaking) preferred pharmacy is [facility] [address] [address] documented in this encounter Plan [...] documented as of this encounter Care Teams Pin Cleaner Relationship Specialty Start Date End Date Deep Pruitt APRN PCP - General 05/22/19 documented as of this encounter
--- OUTSIDE RECORDS SUMMARY | 2025-01-14 16:28 | XMS_ITS | Encounter Summary ---
Author Organization [facility] Address [address] [place] [address] Care Team Providers Care Vice President Marketing & Development Name Role Phone Deep Pruitt APRN Primary Care Provider Reason for Visit * Reason Comments Medication Refill Encounter Details Date Type Department Care Team ([facility] st Contact Info) Description 12/29/2020 Refill [facility] [address] [place] [address] Deep Pruitt APRN [address] [place] [address] Medication Refill Social History Tobacco Use [...] Date Recorded PHQ-2 Total Score 0 11/18/2020 [facility] of Occupat ional Health [...] documented as of this encounter Care Teams Vice President Marketing & Development Relationship Specialty Start Date End Date Deep Pruitt APRN PCP - General 05/22/19 documented as of this encounter
--- OUTSIDE RECORDS SUMMARY | 2025-01-14 16:28 | XMS_ITS | Encounter Summary ---
Author Organization [facility] [employer] and [facility] Address [address] [place] [address] Care Team Providers Care Lactation Specialist Name Role Phone Deep Pruitt APRN Primary Care Provider Reason for Visit * Reason Onset Date Comments Medication Refill 09/22/2021 Encounter Details Date Type Department Care Team (Late st Contact Info) Description 09/22/2021 Refill [facility] at [address] [phone] [facility] 2nd [place] [address] Kaity Harris, WOOD CUTTER [address] [place] [phone] Medication Refill Social History Tobacco Use Types [...] Date Recorded PHQ-2 Total Score 5 09/14/2021 [facility] - Occupational Stress Questionnaire Answer [...] documented as of this encounter Care Teams Lactation Specialist Relationship Specialty Start Date End Date Deep Pruitt APRN PCP - General 05/22/19 documented as of this encounter
--- OUTSIDE RECORDS SUMMARY | 2025-01-14 16:28 | XMS_ITS | Encounter Summary ---
Author Organization [facility] Address [address] [place] [address] Care Team Providers Care Wedding Florist Name Role Phone Deep Pruitt JOHN Primary Care Provider Reason for Visit * Reason Onset Date Comments Medication Refill 10/12/2021 Encounter Details Date Type Department Care Team (Late st Contact Info) Description 10/12/2021 Refill [facility] Nutrition at [address] [address] Angie Mcghee MD [address] [place] [phone] Medication Refill Social History Tobacco Use Types [...] documented as of this encounter Care Teams Wedding Florist Relationship Specialty Start Date End Date Deep Pruitt APRN PCP - General 05/22/19 documented as of this encounter
--- OUTSIDE RECORDS SUMMARY | 2025-01-14 16:29 | XMS_ITS | Encounter Summary ---
Author Organization [facility] Address [address] [place] [address] Care Team Providers Care Buffing Wheel Presser Name Role Phone Deep Pruitt APRN Primary Care Provider Reason for Visit * Reason Comments Medication Refill Encounter Details Date Type Department Care Team ([facility] st Contact Info) Description 10/20/2020 Refill [facility] [address] [place], [place] [phone] Deep Pruitt APRN [address] [place] [address] Medication Refill Social History Tobacco [...] documented as of this encounter Care Teams Buffing Wheel Presser Relationship Specialty Start Date End Date Deep Pruitt APRN PCP - General 05/22/19 documented as of this encounter
--- OUTSIDE RECORDS SUMMARY | 2025-01-14 16:29 | XMS_ITS | Encounter Summary ---
Author Organization [facility] Address [address] [place] [address] Care Team Providers Care Religion Instructor Name Role Phone Romelia Pruittian Niko LOPEZ Primary Care Provider Encounter Details Date Type Department Care Team (Late st Contact Info) Description 08/09/2021 Scanned Document [facility] [address] [place] [address] External, Provider Social History Tobacco Use Types [...] documented as of this encounter Care Teams Religion Instructor Relationship Specialty Start Date End Date Deep Pruitt APRN PCP - General 05/22/19 documented as of this encounter
--- OUTSIDE RECORDS SUMMARY | 2025-01-14 16:29 | XMS_ITS | Encounter Summary ---
Author Organization [facility] Address [address] [place] [address] Care Team Providers Care Stone Mason Name Role Phone Deep Pruitt APRN Primary Care Provider Reason for Visit * Reason Comments Other Advice Only Encounter Details Date Type Department Care Team ([facility] Contact Info) Description 09/28/2021 Telephone [facility] [address] [place] [address] Deep Pruitt APRN [address] [place] [address] Other; Advice Only Social History [...] Date Recorded PHQ-2 Total Score 5 09/14/2021 [facility] of Occupat ional [...] be given because his underlying condition. Patient [phone] documented in this encounter Plan of Treatment Not on file documented as of this encounter Visit Diagnoses Not on filedocumented in this encounter Additional Health Concerns Infection Onset Date Last Indicated Resolved Time COVID-19 09/29/2021 09/29/2021 10/19/2021 7:19 PM EDT Assessment Noted Time PHQ-9 Depression Total Score: 7 09/15/19 22 10:31 AM EDT documented as of this encounter Care Teams Stone Mason Relationship Specialty Start Date End Date Deep Pruitt APRN PCP - General 05/22/19 documented as of this encounter
--- OUTSIDE RECORDS SUMMARY | 2025-01-14 16:29 | XMS_ITS | Encounter Summary ---
Author Organization [facility] Address [address] [place] [address] Care Team Providers Care Char Filter Tank Tender Name Role Phone Deep Pruitt APRN Primary Care Provider [phone] Reason for Visit * Reason Comments Medication Refill Encounter Details Date Type Department Care Team ([facility] st Contact Info) Description 09/17/2020 Refill [facility] [address] [place] [phone] Deep Pruitt APRN [address] [place] [phone] Medication Refill Social History Tobacco Use [...] Answer Date Recorded PHQ-2 Score 2 07/07/2020 [facility] - Occupational Stress Questionnaire Answer Date [...] of this encounter Care Teams Char Filter Tank Tender Relationship Specialty Start Date End Date Deep Pruitt APRN PCP - General 05/22/19 documented as of this encounter
--- OUTSIDE RECORDS SUMMARY | 2025-01-14 16:29 | XMS_ITS | Encounter Summary ---
Author Organization [facility] Address [address] [place] [address] Care Team Providers Care Restaurant Hourly Manager Name Role Phone Romelia Pruittian Niko LOPEZ Primary Care Provider Encounter Details Date Type Department Care Team (Late st Contact Info) Description 09/06/2021 Scanned Document [facility] [address] [place] [address] External, Provider Social History Tobacco Use Types [...] Date Recorded PHQ-2 Total Score 2 09/08/2021 [facility] [...] documented as of this encounter Care Teams Restaurant Hourly Manager Relationship Specialty Start Date End Date Deep Pruitt APRN PCP - General 05/22/19 documented as of this encounter
--- OUTSIDE RECORDS SUMMARY | 2025-01-14 16:29 | XMS_ITS | Encounter Summary ---
Author Organization [facility] Address [address] [place] [address] Care Team Providers Care Pilot Boat Deckhand Name Role Phone Romelia Pruittian Niko LOPEZ Primary Care Provider [phone] Reason for Visit * Reason Comments Medication Refill Encounter Details Date Type Department Care Team ([facility] st Contact Info) Description 09/16/2021 Refill [facility] [address] [place] [phone] Carlos Eduardo Joyner MD [address] [place] [phone] Medication Refill Social History Tobacco Use [...] Date Recorded PHQ-2 Total Score 5 09/14/2021 [facility] [...] documented as of this encounter Care Teams Pilot Boat Deckhand Relationship Specialty Start Date End Date Deep Pruitt APRN PCP - General 05/22/19 documented as of this encounter
--- OUTSIDE RECORDS SUMMARY | 2025-01-14 16:29 | XMS_ITS | Clinical Summary ---
Author Organization [address] Address [address] [place] [id number] Care Team Providers Care Electronic Repair Troubleshooter Name Role Phone Deep Pruitt APRN Primary [...] edema will order Compression sleeves today from [facility] today, Put on lower legs during [...] capsule 3 03/21/20 Active flash glucose (FREESTYLE GRISEL 2 READER) scanning reader Use as directed to monitor blood sugar. E11.65, Z79.4 1 each 04/21/20 Active flash glucose (FREESTYLE GRISEL 2 SENSOR) sensor kit Place 1 sensor [...] of insulin, Duration 99, Feeding difficulty R63.30 43194 mL 06/23/19 Active metFORMIN (GLUCOPHAGE) 1000 mg [...] AM with Arben Fountain DPM at the [facility] -Will f/u with Pt in a month [...] appointment and was informed he can call [phone] to find a closer time Assessment & Plan (02/19/2022 1:59 PM EDT): -The Pt went to his Crusher Supervisor and was c/o right kidney pain for [...] worse at night - pathway utilized through [employer], patient eligible for molnupiravir, may benefit from [...] Latest Ref Range: See Comment IU/mL 3.640 Lymph nodes enlarged 04/09/2021 Assessment & [...] (04/11/2020 5:24 AM EST): Hypersegmentation of eosinophils with Pt with Gout due to uncontrolled Diabetes and damage to kidneys, Had consulted Dr Tong ID Specialist in regards to Pt having elevated Eosinophils, [facility] Comment: Suggestive of acute inflammation pattern with elevation of acute phase proteins and Dr Tong recommended for the Pt to get additional labs SPEP panel to determine the reason and and send results as an e-consult to Hematology [facility] Interpretation Comment: Suggestive of acute inflammation pattern with elevation of acute phase proteins Results for DARREL BHARDWAJ ( ) as of 04/10/2020 15:12 Ref. Range 04/07/2020 SPEP Interpretation Unknown Nsaty-8-Dpudgzyj Latest Ref Range: 0.2 - 0.3 g/dL 0.3 Zssvw-0-Famivmry Latest Ref Range: 0.5 - 0.9 g/dL 1.1 (H) Interpretation Unknown Comment Only Abnormal Protein Band 2 Latest Ref Range: NONE DETECTED g/dL CANCELED Abnormal Protein Band 3 Latest Ref Range: NONE DETECTED g/dL CANCELED Oodl-2-Pmogkcvn Latest Ref Range: 0.4 - 0.6 g/dL 0.5 Mluj-1-Nfeqgmjn Latest Ref Range: 0.2 - 0.5 g/dL 0.5 Gamma Globulin Latest Ref Range: 0.8 - 1.7 g/dL 1.1 Abnormal Protein Band 1 Latest Ref Range: NONE DETECTED g/dL CANCELED Protein, Total Latest Ref Range: 6.1 - 8.1 g/dL 7.1 Albumin Latest Ref Range: 3.8 - 4.8 g/dL 3.6 (L) Results for DARREL BHARDWAJ ( ) as of 04/08/2020 17:50 Ref. Range 04/07/2020 Free Le Mars Latest Ref Range: 3.3 - 19.4 mg/L 35.9 (H) Free Lambda Latest Ref Range: 5.7 - 26.3 mg/L 26.6 (H) Free [place]/Lambda Ratio Latest Ref Range: 0.26 - 1.65 1.35 Results for DARREL BHARDWAJ ( ) as of 04/03/2020 12:10 Ref. Range 02/06/2020 03/12/2020 Neutrophils Absolute Latest Ref Range: 1,500 - 7,800 cells/uL 9,116 (H) ANC (Absolute Neutrophil Count) Latest Ref Range: 0 - 750 cells/uL CANCELED Lymphocytes Absolute Latest Ref Range: 850 - 3,900 cells/uL 3,081 Absolute Lymphocyte Count Latest Ref Range: 1.0 - 4.0 x 1000/ L 2.4 Monocytes (Absolute) Latest Ref Range: 200 - 950 cells/uL 1.4 1,278 (H) Eosinophil Absolute Count Latest Ref Range: 0.0 - 1.0 x 1000/ L 0.7 Eosinophils Absolute Latest Ref Range: 15 - 500 cells/uL 653 (H) Gout due to renal impairment Results for [...] 15:12 Ref. Range 04/07/2020 SPEP Interpretation Unknown Wmgzj-0-Nslqgouf Latest Ref Range: 0.2 - 0.3 g/dL 0.3 Nljpd-6-Uhpmkuto Latest Ref Range: 0.5 - 0.9 g/dL 1.1 (H) Interpretation Unknown Comment Only Abnormal Protein Band 2 Latest Ref Range: NONE DETECTED g/dL CANCELED Abnormal Protein Band 3 Latest Ref Range: NONE DETECTED g/dL CANCELED Geoe-6-Svpuixgw Latest Ref Range: 0.4 - 0.6 g/dL 0.5 Hiyh-2-Exfnidmp Latest Ref Range: 0.2 - 0.5 g/dL 0.5 Gamma Globulin Latest Ref Range: 0.8 - 1.7 g/dL 1.1 Abnormal Protein Band 1 Latest Ref Range: NONE DETECTED g/dL CANCELED Protein, Total Latest Ref Range: 6.1 - 8.1 g/dL 7.1 Albumin Latest Ref Range: 3.8 - 4.8 g/dL 3.6 (L) Results for DARREL BHARDWAJ ( ) as of 04/08/2020 17:50 Ref. Range 04/07/2020 Free Le Mars Latest Ref Range: 3.3 - 19.4 mg/L 35.9 (H) Free Lambda Latest Ref Range: 5.7 - 26.3 mg/L 26.6 (H) Free [place]/Lambda Ratio Latest Ref Range: 0.26 - 1.65 1.35 Results for DARREL BHARDWAJ ( ) as of 04/03/2020 12:10 Ref. Range 02/06/2020 03/12/2020 Neutrophils Absolute Latest Ref Range: 1,500 - 7,800 cells/uL 9,116 (H) ANC (Absolute Neutrophil Count) Latest Ref Range: 0 - 750 cells/uL CANCELED Lymphocytes Absolute Latest Ref Range: 850 - 3,900 cells/uL 3,081 Absolute Lymphocyte Count Latest Ref Range: 1.0 - 4.0 x 1000/ L 2.4 Monocytes (Absolute) Latest Ref Range: 200 - 950 cells/uL 1.4 1,278 (H) Eosinophil Absolute Count Latest Ref Range: 0.0 - 1.0 x 1000/ L 0.7 Eosinophils Absolute Latest Ref Range: 15 - 500 cells/uL 653 (H) Assessment & Plan (04/08/2020 5:59 [...] Range: 15 - 500 cells/uL 653 (H) Still waiting on additional SPEP panel labs to be processed Results for DARREL BHARDWAJ ( ) as of 04/08/2020 17:50 Ref. Range 04/07/2020 Free Le Mars Latest Ref Range: 3.3 - 19.4 mg/L 35.9 (H) Free Lambda Latest Ref Range: 5.7 - 26.3 mg/L 26.6 (H) Free [place]/Lambda Ratio Latest Ref Range: 0.26 - 1.65 [...] Latest Ref Range: 1.0 - 4.0 x 1000/ L 2.4 Monocytes (Absolute) Latest Ref Range: 200 - 950 cells/uL 1.4 1,278 (H) Eosinophil Absolute Count Latest Ref Range: 0.0 - 1.0 x 1000/ L 0.7 Eosinophils Absolute Latest Ref Range: 15 [...] metatarsal phalangeal joint. Sharp/Dull sensation is absent. Assessment & Plan (02/14/2020 5:23 PM EDT): Patient called and stated he's a diabetic and was advised to speak with his pcp Deep if anything was wrong. He stated he woke up with a small cut in right foot on the small toe. I did offer the CC but stated he would like to speak with his pcp first [phone] Phone Conversation with Pt over the phone: PCP called namibian speaking (uncontrolled diabetic) Pt over the phone, [...] Tried to call the Pt using the Haitian Interpretor [phone], V/M was not set up [...] Joyner MD Gallant, Brian S, APRN; Taylor Malagon, JOHN -If taking for more than 4 weeks, [...] increasing it is unlikely to decrease pain. You may need to consider prednisone. Ricarda ----- Message ----- From: Taylor Malagon APRN Sent: 05/20/2020 9:49 AM EST To: Deep Pruitt APRN, * Subject: RE: Gout due to renal impairment Shahzad Adame, nitesh for the information. I agree with Dr. Rosenberg about both the Allopurinol dosing and for looking for other reasons for leg pain once the gout episode resolves. In addition, I would maintain the same Lasix for now. I have CC'd Ricarda Du MD, his primary drawing machine operator. She has a phone consult with him on 07/08. Best regards, Taylor Berry & Plan (05/20/2020 7:54 AM EST): Jeovanny [...] all the Pt medication bottle be in namibian, Pt had a medication (allopurinoL (ZYLOPRIM) 100 mg tablet) error because he can not read in Somali, the Pt was prescribed 1/2 tab but [...] primary care provider. RTC in 2 months Recommendations were provided to the patient verbally and/or in the patient instructions. Patient was reminded to obtain patient instructions and if applicable, to make the next appointment to see me at the commercial front load driver Latest Reference Range & Units 09/09/21 12/15/21 BUN 7 - 25 mg/dL 31 (H) 29 (H) Creatinine 0.70 - 1.30 mg/dL 1.40 (H) 1.55 (H) BUN/Creatinine Ratio 6 - 22 (calc) 22.1 19 eGFR (NON -[place]) >60 mL/min/1.73m2 53 eGFR (Afr Amer) >60 [...] Range: 8.0 - 23.0 22.1 eGFR (NON -[place]) Latest Ref Range: >60 mL/min/1.73m2 53 eGFR [...] APRN at the Nephrology at [address] [facility], The Renal department is working on getting the Pt a 24 hour HTN monitor to assess the effectiveness of his recent medication changes, used namibian interpretor [id number] 07/13/2021 Renal Referral Note: Assessment [...] but still painful. Plan: 1. Immediate plan: Continue current medications Continue tracking BPs and HRs at home Messaged to provider to ensure patient can obtain supplemental oxygen Follow-up visit in 2 weeks 2. Future considerations: 24-hour ABPM Consider resuming amlodipine at lower dose if TAYLOR resolves given history of tolerating medication Consider trial of hydralazine in the evening 3. To optimize lifestyle factors: Weight loss, consider bariatric surgery Continue to reduce sodium intake Follow-up with sleep medicine Assessment & Plan (08/02/2021 3:31 PM EDT): The Renal department is working on getting the Pt a 24 hour HTN monitor to assess the effectiveness of his recent medication changes, used namibian interpretor [id number] 07/13/2021 Renal Referral Note: Assessment [...] but still painful. Plan: 1. Immediate plan: Continue current medications Continue tracking BPs and HRs at home Messaged to provider to ensure patient can obtain supplemental oxygen Follow-up visit in 2 weeks 2. Future considerations: 24-hour ABPM Consider resuming amlodipine at lower dose if TAYLOR resolves given history of tolerating medication Consider trial of hydralazine in the evening 3. To optimize lifestyle factors: Weight loss, consider bariatric surgery Continue to reduce sodium intake Follow-up with sleep medicine Assessment & Plan [...] given a referral to talk with the [facility] Patent Leather Sorter for further assessment of his current diet [...] RENAL on 02/04/2020 8:08 PM for Renal Failure -FINDINGS: The right kidney measures 13.7 cm and the left kidney measures 13.2 cm. There is no hydronephrosis or nephrolithiasis of either kidney. In the upper pole of the left kidney, the renal parenchyma appears echogenic (image 16). The bladder is unremarkable. The right ureteral jet is seen. -IMPRESSION: No hydronephrosis or nephrolithiasis, Nonspecific echogenic geographic focus [...] and magnesium supplements that he said a rn utilization management um told him were good for his kidneys. [...] above range for needing to start erythropoietin replacement. Renal bone disease: Ca/PO4/PTH are in goal [...] preparation for his first visit with a drawing machine operator, Ricarda Du MD on 04/07/2020. Assessment & Plan (02/12/2020 2:18 PM EDT): Pt was recently in the hospital for Kidney issues, the Pt missed a previous Kidney appointment and will ask Pt to reschedule another Kidney appointment Date & Time 02/25/2020 10:00 AM Provider Taylor Malagon APRN Department [facility] [address] [facility] [address] [facility] 2nd Floor [facility] [address] Comment: Pt needs a Kidney referral due [...] 23 (H) 23 (H) 14.7 eGFR (NON -Equatorial [place]an) Latest Ref Range: >60 mL/min/1.73m2 76 77 [...] (see MRI of Brain from 2017 under [facility] Multimedia -Significant deficits on neurologic exam Memory loss and Left handed weakness -Imaging and prior evaluation -Current blood thinning agents is aspirin -Potential details to include, when relevant: poor GAIT, uses a walker to get around -How the diagnosis was made: Pt lived in [facility] at the time, Under Multimedia in [employer] see specific file at specific date [id number] Image MRI Result [facility] - MRI BRAIN CVA -09/25/2016 [id number] Image Evaluation [facility]- Left handed weakness note - 02/20/2017 [...] a letter to be given to the [employer] advising stating that the Pt is disabled and needs help with housing Is there a form to be fill out from the [employer] [facility] advising that the Pt is disabled and needs help with housing t 03/26/21 Oksana Foxian [place] WATER TREATMENT PLANT REPAIRER Summary: Letters needed by patient This advertising copywriter met with patient at the clinic today 03.26.21 per nurses request, to assistance with letters that the patient is requesting. This advertising copywriter spoke to patient and patient is asking [...] Patient is also requesting a letter for [facility] advising that he is disabled. Patient stated that he has already applied for and wants this letter to help him get Housing CCM: 15 minutes 04/11/2021 Deep Pruitt APRN Assessment & Plan (05/31/2020 5:20 PM EST): Pt had a CVA from 2017 and needs Neuro clearance before getting a Colonoscopy Presumed etiology of prior stroke (see MRI of Brain from 2017 under [employer] Significant deficits on neurologic exam Memory loss and Left handed weakness Imaging and prior evaluation Current blood thinning agents is aspirin Potential details to include, when relevant: poor GAIT, uses a walker to get around How the diagnosis was made: Pt lived in [facility] at the time, Under Multimedia in [employer] see specific file at specific date [id number] Image MRI Result [facility] - MRI BRAIN CVA -09/25/2016 [id number] Image Evaluation [facility]- Left handed weakness note - 02/20/2017 [...] is working with his Diabetic Specialist at [facility] and has an appointment next week, will increase his Gababentin to 800 mg PO TID which has helped with his neuropathic pain, Spent 25 mins with Pt using the Investigation Officer Microalbuminuric diabetic nephropathy (HC Code) 09/26/2019 Assessment [...] Ricarda Du MD at the Nephrology at [address] [place] [address] Results for DARREL BHARDWAJ ( ) as [...] ) as of 09/19/2019 07:04 eGFR (NON -[place]) Latest Ref Range: > OR = 60 [...] for Bariatric surgery and Pt needs a admin dir Assessment & Plan (09/10/2021 5:42 PM EDT): Pt has a BMI of 40.4 and is working with the wellness clinic to work on his weight loss plan, putting a referral in for Bariatric surgery and Pt needs a admin dir Assessment & Plan (09/26/2019 9:45 AM EDT): Pt has a BMI of 40.4 and is working with the wellness clinic to work on his weight loss plan, putting a referral in for Bariatric surgery and Pt needs a admin dir Assessment & Plan (09/09/2019 2:47 PM EDT): Pt has a BMI of 40.4 and is working with the [facility] clinic to work on his weight loss [...] whole encounter. The interview was conducted in Haitian which is my [place] language. I have encouraged Mr. Bhardwaj to contact us with any questions, concerns or clinical changes. Plan: 1. Continue current therapy. 2. No need for supplemental oxygen. Assessment & Plan (12/23/2021 12:10 PM EDT): -The Pt continues to feel like he is constantly SOB and is asking to be put on Oxygen WATER TREATMENT PLANT REPAIRER -The Pt was given a list of labs to complete and once done then the Pt will be scheduled appointment with his Hospital Aides And Assistants Teacher -The Pt and the Hospital Aides And Assistants Teacher will decide together if the pt needs to be on O2 WATER TREATMENT PLANT REPAIRER or not 08/18/2021 Pulmonary Note: Assessment: Mr. [...] medication 04/08/2021 Pulmonary F/U Note: Impression/Plan Pulmonary Issues:Dyspnea- rest and exertional, Hypoxia, Moderate restrictive physiology, Peripheral eosinophilia, REGI on CPAP, GERD, Obesity Mr. Darrel Bhardwaj is a 50 [...] ways in which he can request an quality control assistant over the phone and I am happy to facilitate connection with other practices. I have personally messaged GI, cardiology, and sleep medicine to arrange follow- ups as indicated. Regarding his dyspnea and cough, he feels [...] complaints are out of proportion to seemingly [id number] asthma and his dyspnea is likely multifactorial. [...] to sleep medicine for coordination of care. He has not yet completed pulmonary function [...] seems that he is considering bariatric surgery. We discussed how to follow-up with all of his specialists. He will have labs drawn including CBC with differential, allergen testing, and BNP. For now, he should continue daily ICS/LABA and will switch to Breo for convenience. He will need to be closely followed and will return in August with Dr. Suarez or sooner as needed. Plan: - ABG, 6MWT ordered today - overnight oximetry ordered, full set PFTs at next appt - switch to Breo 100 once daily, *STOP Advair, *inhaler teaching personally reviewed with pt and , albuterol PRN - CT chest 6 month follow-up (prevascular node) - Continue PPI 30 mins before breakfast plus recommendations by GI team, GI follow-up needed - Sleep medicine CPAP machine optimization needed, possible PSG - Cardiology follow-up (palpitations, dyspnea, LE edema) - Labs: RAST with IgE, CBC, p-BNP, [...] ways in which he can request an quality control assistant over the phone and I am happy to facilitate connection with other practices. I have personally messaged GI, cardiology, and sleep medicine to arrange follow-ups as indicated. Regarding his dyspnea and cough, he feels [...] complaints are out of proportion to seemingly [id number] asthma and his dyspnea is likely multifactorial. [...] to sleep medicine for coordination of care. He has not yet completed pulmonary function [...] seems that he is considering bariatric surgery. We discussed how to follow-up with all of his specialists. He will have labs drawn including CBC with differential, allergen testing, and BNP. For now, he should continue daily ICS/LABA and will switch to Breo for convenience. He will need to be closely followed and will return in August with Dr. Suarez or sooner as needed. Plan: - ABG today - 6MWT today [...] IgE - CBC - p-BNP - CMP It is a pleasure to participate in the care of this patient. Return to clinic in 3 months . Isha Brown APRN Assessment, plan, and documentation in collaboration with Dr. Deep Yo. [facility] Quality Initiatives: Tobacco counseling: Patient is a non-smoker. Lung cancer screening: Patient does not meet current criteria for lung cancer screening. A CT scan is otherwise being performed as part of this patient's pulmonary evaluation as discussed above. Bone Health Risk Management: Not applicable. Immunization status: Patients should receive the flu [...] allergies spent 20 mins with Pt using Haitian Interpretor [id number] Assessment & Plan (11/14/2020 11:15 [...] years for colon cancer screening purposes. Used Haitian interpretor [id number] Assessment & Plan (06/16/2021 10:23 [...] years for colon cancer screening purposes. Used Haitian interpretor 8245 Assessment & Plan (09/13/2020 7:30 [...] years for colon cancer screening purposes. Used Haitian interpretor [id number] Assessment & Plan (06/24/2020 4:13 PM EST): Pt was informed of the following message and told to call and was asked to call to make a colonoscopy appointment 06/03/20 12:29 PM Message from [facility] at [address] [place] [address] Called patient to cancel pre colon appointment, [...] #LE edema -decrease amlodipine to 5mg daily #HTN Fairly well controlled at home, in the 130s/90s -amlodipine as above -Lasix per nephrology -continue losartan 75mg daily -daily BP checks, and keep log -if BP increases with decreased amlodipine dose, will make further medicaiton adjustments at f/u visit #Dyslipidemia with hyperTG Calculated LDL in 01/2020 was 38 on atorvastatin 80, but then up to 126 on 03/12/2020 (TG 358 at that time), direct -continue atorva 80 -add ezetemibe 10mg daily -lipid panel with direct LDL in 3 months -ASA daily is not unreasonable for a man with DM2 and overall low bleeding risk #Colonoscopy clearance Generally a low-risk procedure. He [...] latter is often not covered by insurance). Carolyn Marin MD, MHS Cardiovascular Medicine Decrease amlodipine to 5mg daily (blood pressure medication) Start ezetemibe 10mg daily (cholesterol medication) Continue to check your blood pressure and if raising significantly, will make further medication adjustments, please call clinic to let us know how your blood pressure is doing. OK for follow-up colonoscopy from a heart standpoint. Assessment & Plan (04/22/2020 6:55 AM EST): To: Shalini Sandoval PA-C Sent: 04/22/2020 Jeovanny Loya (from the GI Colonoscopy Clinic): The Pt has a past Hx of a Stroke, obese and uncontrolled diabetes and will have the Pt see Cardio in May 2020 as a precaution Thank you Deep From: Shalini Sandoval PA-C Sent: 03/30/2020 8:04 AM EST To: Deep Pruitt APRN Subject: RE: Colonoscopy referral Deep, Thank you so much for reaching [...] the Pt had colonoscopy at [facility] in [facility] and was told to return in [...] 03/16/2019 Overview (02/06/2020): Update February 2020 by JUSTYN Murphy (diagnosis update) Assessment & Plan (06/16/2021 10:26 AM EST): - continues to take PPI daily Assessment & Plan (04/23/2021 10:20 AM EST): The Pt was informed that the Upper scope biopsy results were negative for H- Pylori 04/07/2021 the Pt had an Upper Endoscopy completed by Hedy Lemons Procedure: UPPER GI ENDOSCOPY; DX, W/WO SPECIMEN COLLECTION, BRUSHING/WASHING w/ biopsies Please let Pt know that his Stomach Biopsy results were negative for H-Pylori Clinical History and Impression: Preop and postop diagnosis: GERD (gastroesophageal reflux disease) PATHOLOGY REPORT: STOMACH, BIOPSY - GASTRIC ANTRAL MUCOSA WITH MILD CHRONIC GASTRITIS - GASTRIC OXYNTIC MUCOSA WITH PROTON PUMP INHIBITOR EFFECT - NEGATIVE FOR HELICOBACTER PYLORI (IMMUNOHISTOCHEMISTRY) Assessment & [...] diagnosis: GERD (gastroesophageal reflux disease) PATHOLOGY REPORT Patient: DARREL BHARDWAJ MR #: [id number] ([id number]) Submitted by: Hedy Hameed MD STOMACH, BIOPSY - GASTRIC ANTRAL MUCOSA WITH MILD CHRONIC GASTRITIS - GASTRIC OXYNTIC MUCOSA WITH PROTON PUMP INHIBITOR EFFECT - NEGATIVE FOR HELICOBACTER PYLORI (IMMUNOHISTOCHEMISTRY) Assessment & Plan (04/08/2021 6:22 AM EST): 04/07/2021 GI Upper Endoscopy: Findings: The examined esophagus was normal. The entire examined stomach was normal. Biopsies were taken with a cold forceps for Helicobacter pylori testing. The examined duodenum was normal. Impression: - Normal esophagus. - Normal stomach. Biopsied. - Normal examined duodenum. Recommendation: - Discharge patient to home (ambulatory). - Follow an antireflux regimen indefinitely. - Continue present medications. - Await pathology results. CCM: 5 minutes 04/08/2021 [...] response to BPAP S on 21/02 cm. -auto BPAP ordered, IPAP max 22, EPAP Min 10, PS 7 Assessment & Plan (11/28/2021 11:12 AM EDT): 11/16/2021 Sleep Apnea Report: IMPRESSION : -Obstructive [...] disordered breathing. RECOMMENDATIONS / PLAN : -Current [place] [employer] recommendations for treatment of [...] Pt Called patient with Jose Rolon. Nancy #[id number]. Patient said that he has an old ResMed that he received in [place]. He doesn't know his mode or settings. Nor does he know his previous DME Assessment & Plan (09/10/2021 5:40 PM EDT): The Pt has an Sleep Apnea appointment on 09/24/2021 at 4:20 PM with Ryanne Ocasio MD at the [facility] at [address] [place] [address] Assessment & Plan (09/24/2019 3:03 PM EDT): [...] spent 45 mins with Pt with a supervisor plate pasting SLEEP STUDY - [facility] - [phone] Assessment & Plan (09/09/2019 3:22 PM EDT): Pt typically sleep 2.5 hours a night, Pt still has to return his sleep apnea machine to [place] before a sleep apnea clinic in [place] will talk to him, Pt has a BMI of 40.4 and PCP will put a referral in for sleep apnea for Pt today, spent 35 mins with Pt with a supervisor plate pasting Diabetic foot (HC Code) 02/07/2019 Assessment & Plan (06/24/2022 9:27 AM EST): The Pt continues to deal with bilateral foot pain and wears a pair of Diabetic shoes with specification ordered by his Product Support Manager Doctor Assessment & Plan (05/31/2021 2:00 PM EST): The Pt continues to deal with bilateral foot pain and needs to get a pair of Diabetic shoes with specification ordered by his Product Support Manager Doctor and will increase Gabapentin from 400 mg PO BID to 800 PO BID Assessment & Plan (01/04/2021 10:02 AM EDT): - recently seen in mid-December by Podiatry- note reviewed Assessment & Plan (10/14/2020 9:29 AM EDT): The Pt continues to deal with bilateral foot pain and needs to get a pair of Diabetic shoes with specification ordered by his Product Support Manager Doctor see below: 08/26/2020 Podiatry Note: Bilateral [...] Also using his neuropathic compounding formula from [employer] as an adjunctive therapy and likes it [...] is working with his Diabetic Specialist at [facility] and has an appointment next week, will increase his Gababentin to 800 mg PO TID and assess effectiveness in one month Assessment & Plan (02/07/2019 6:48 AM EDT): Pt needs a Podiatry appointment due to toe nails need to be cut and Pt needs establish care with a Product Support Manager for his annual diabetic foot care Diabetic [...] in for the Pt and lately the [facility] has not been given dates for appointments because they are so booked, will print referral and mail to Pt incase he wants to get a sooner appointment somewhere else that he will find on his own, will ask if Sandra or who she thinks it best to call the Pt and explain this situation 09/18/2020 Message sent from Leah Garcia, RN Sent to Deep Pruitt Patient's Sissy [...] [facility] Patient can be reached at [phone]. Ms. Rosales can be reached at the same number [phone]. Thank you Deep Assessment & Plan (05/28/2020 2:38 PM EST): Used Interpretor [id number], Pt is asking for an Diabetic Eye [...] 2019, the Pt needs to call the [facility] [address] [place] [id number] Assessment & Plan (10/14/2020 2:13 PM EDT): [...] (01/04/2019 4:02 PM EDT): Pt needs a Haitian speaking Nurse to help him manage his [...] medications -He has been following with the [facility] team and reports taking all of [...] decided to move [place] back to [place] area due to being closer to family [...] (DEXCOM G6 SENSOR) device and scanner Asked Dough Cutter to schedule a 1/2 hour Nurse visit [...] 200-300 average, checks ACHS -Pt has his [facility] appt on 04/21/2022 at 11:30 AM [...] Pt will continues to go to his [facility] appointments to review his Dexcom G6 numbers and make appropriate medication changes -If all that happens then the Pt can also scan before each meal, switch from taking 30 units of prandial insulin to start a Sliding Scale -Will leave note with Pt's Elevator Installer that the Pt needs to have Provider use a Investigation Officer due to his poor Somali skills -The Pt has received the Dexcom G6 sales professional bilingual and scanner but still does not know [...] Pt will continues to go to his [facility] appointments to review his Dexcom G6 [...] EDT): -Met with Pt and with our [facility] RN who was able to translate [...] (will send note to Endocrinology for review) Latest Reference Range & Units 12/22/21 Hemoglobin [...] candidate for surgery. -Discussed on today's visit treatment options, goals, risk of DM complications, and hypoglycemia management. Reviewed diabetic diet, exercise regimen. Reinforced the importance of good BS control in preventing/stabilizing DM complications. Goal A1c around 7%, without significant hypoglycemia, pre-meal BS 80-130, 2 hrs post- prandial BS 80-180. CVD / microvascular risk factors ? BP: Goal <140/90 ? Lipids: LDL at (Target LDL <100 ). TG above target TG<150. ? Anti-plt tx: on ASA ? Last eGFR: >45--> 07/2021 ? Last UACR: 2020 ? BMI: 39 ? Smoking: Non-smoker ? Retinopathy: yes ? Neuropathy: yes Recommendations: #Diabetes: 1.Continue with Humulin U500 190u bid 2.Novolog 30 before meals + supplementary sliding -388-->4u, 200-249-->6u, 250-299-->8u, 300-349-->10u, >350-->12u 3.continue with trulicity 4.5 mg weekly, jardiance 25 mg daily and metformin 1000 mg bid 4.contact us in 1 week to report BG 5.Check BS 4X/day. Keep organized log and bring it next time. Call [employer] for use of Dexcom CGM 6.Hypoglycemia management: Carry glucose tablets or snacks in case of hypoglycemia. Will prescribed again free style grisel CGM today. Rule of 15 reinforced 7.Diabetic [...] u-500 three times daily and dc novolog. Patient is interested on bariatric surgery, explained this would be a good option, but we need to work on his glucose control so he is deemed a good candidate for surgery. Discussed on today's visit treatment options, goals, risk of DM complications, and hypoglycemia management. Reviewed diabetic diet, exercise regimen. Reinforced the importance of good BS control in preventing/stabilizing DM complications. Goal A1c around 7%, without significant hypoglycemia, pre-meal BS 80-130, 2 hrs post- prandial BS 80-180. CVD / microvascular risk factors ? BP: Goal <140/90 ? Lipids: LDL at (Target LDL <100 ). TG above target TG<150. ? Anti-plt tx: on ASA ? Last eGFR: >45--> 07/2021 ? Last UACR: 2019 ? BMI: 39 ? Smoking: Non-smoker ? Retinopathy: yes ? Neuropathy: yes Recommendations: #Diabetes: 1. Continue with [id number] 190u bid 2.Novolog 30 before meals + supplementary sliding scale 150-199--> 4 units 200-249--> 6 units 250-299--> 8 units 300-349--> 10units >350--> 12 3.continue with trulicity 4.5 mg weekly, jardiance 25 mg daily and metformin 1000 mg bid 4.contact us in 1 week to report BG 5.Check BS 4X/day. Keep organized log and bring it next time. Call [facility] for use of Dexcom CGM 6.Hypoglycemia management: Carry glucose tablets or snacks in case of hypoglycemia. Will prescribed again free style grisel CGM today. Rule of 15 reinforced 7.Diabetic diet, moderate intensity exercise 150 minutes/week, weight loss 5-10% of body weight. Eye: F/u with ophthalmology for complete eye exam periodically. Foot care: following closely with podiatry nephropathy: follows with nephro RTC in 3 months Assessment & Plan [...] his painful foot issues -Will talk with [facility] Nurse about the Pt and support systems may not be compliant with taking meds and Insulin on a regular basis -Will work on bring the Pt's A1C down, it has been in the 's for the past year and Pt not wanting to see [facility] or [facility] Diabetic Specialist -Will have to set [...] human CONCENTRATED 500 units/mL (HUMULIN R U-500, SPENCER DUNLAP) injection pen 170 units AM and 175 [...] the Bariatric Doctor for weight loss -Used Investigation Officer # [id number] -Pt wished he could get his diabetic care restarted at the [facility] -Pt does not want to go to [facility] Diabetic Clinic or the [facility] due to not feeling comfortable [...] Pt needs to be rescheduled with our [facility]abetic Clinic with Zena Hines PA, the Pt did not like dealing with [facility] due to not feeling comfortable with the [facility] Providers and has had missed multiple appointments The Pt continues to deal with an elevated A1C, Pt wished he could get his diabetic care restarted at the [facility], will refer today Results for DARREL BHARDWAJ ( ) as [...] 11:53 AM EDT): 09/30/21 10:41 AM Polly Hightower, RN Message from Ryanne Ocasio MD sent at 09/30/2021 Regarding: RE: reschedule fruit buying grader appointment I think this is his 3rd canceled appointment. I know I am booking many months out now. I would suggest he see another provider. Including Polly in this message. Thanks! Assessment & Plan (09/10/2021 5:30 PM EDT): The Pt continues to deal with an elevated A1C, the Pt has a new patient Endocrinology appointment on 09/24/2021 at 4:20 PM with Ryanne Ocasio MD at the [facility] Center at [address] [place] [address], Pt wished he could get his diabetic care restarted at the [facility], Pt advised to go to his [...] LDL 90 01/25/2021 MALCRR 3,278 (H) 09/16/2019 Outpatient/COMPLIANCE ADVISOR meds BLOOD GLUCOSE METER (ONETOUCH VERIO FLEX METER) device dulaglutide (TRULICITY) 4.5 mg/0.5 mL PnIj flash glucose (FREESTYLE GRISEL 14 DAY) scanning reader FREESTYLE GRISEL 14 DAY sensor kit insulin aspart (NOVOLOG FLEXPEN INSULIN) 100 unit/mL (3 mL) pen insulin regular human CONCENTRATED 500 units/mL (HUMULIN R U-500, CONC, KWIKPEN) injection pen JARDIANCE 25 mg tablet metFORMIN (GLUCOPHAGE) 1000 mg tablet - continues to see [facility] - recent finger stick readings 350, no symptoms of hyperglycemia - discussed with patient taking medications as prescribed as well as changing diet - recommended to reduce carb intake and simple carbs throughout the day and night and see if fasting glucose improved in morning - plans to see [facility] soon Assessment & Plan (04/23/2021 10:36 AM EST): The Pt continues to work with his [facility] Diabetic Specialist and stated that his Finger sticks range between 98-160, Pt needs to get additional labs to assess kidney fx and his diabetes Assessment & Plan (01/08/2021 1:21 PM EDT): The Pt continues to deal with elevated A1C and sees his Elevator Installer on a regular basis Results for DARREL [...] and has a f/u appointment with his Elevator Installer on 09/29/2020 08/27/2020 Endocrine referral: Assessment and [...] his blood sugars. Could also consider insulin odd shoe examiner like pioglitazone at low dose. Discussed treatment options, goals, risk of DM complications, and hypoglycemia management. Reviewed diabetic diet, exercise regimen. Reinforced the importance of good BS control in preventing/stabilizing DM complications. Goal A1c around 7%, without significant hypoglycemia, pre-meal BS 80-130, 2 hrs post-prandial BS 80-180. Recommendations: -Continue Humulin U500 110u bid -Continue Novolog 22u with meals but add SS 250-300 take 25u 301-350 take 27u 351-400 take 29 u Over 400 take 31 u -Increase Trulicity to 4.5 mg weekly -Continue [...] - Last microalbumin elevated, followed by nephrology Return in about 1 month (around 09/26/2020) for Has LAURENCE Lazaro 10/02/20. Assessment & Plan (08/13/2020 5:02 AM EDT): 30 day supply meds sent in today 08/10/2020 Krystle Santos RN Spoke with pharmacist at [facility], states if PCP will send scripts for [...] between 7 or 8 and talked through supervisor plate pasting [id number] that the Pt has to have the same amount of calories every meal so his sugars can stabilize Morning sugars 06/24/2020 was 119, 06/23/2020 was 253, was 349, Assessment & Plan (06/21/2020 6:52 AM EST): Images from the original note were not included. 06/15/2020 Endocrinology Note: Isha Carmen APRN Gallant, Brian S, JOHN Adame, I would not stop the Jardiance or Trulicity due to Darrel's h/o stroke. Both of these medications have been shown to reduce risk for future cardiovascular events. Unfortunately due to his lack of blood sugar control he needs a multi-drug regimen at this time. With weight loss he may be able to cut back on insulin. Isha Sullivan Assessment & Plan (06/10/2020 4:15 PM EST): Pt c/o today of having sugars at 300, 200 previously the [...] R U-500, CONC, KWIKPEN) injection pen Inject 105 Units under the skin 2 (two) times daily before breakfast and dinner, will increase his insulin another 5 units to 110 and send message to his pattern duplicator Isha Carmen APRN with [facility] Assessment & Plan (05/28/2020 3:01 [...] to 105 and send message to his pattern duplicator Isha Carmen APRN with [facility] Assessment & Plan (04/08/2020 6:17 PM EST): [...] the care of Isha Carmen APRN with [facility] and was last prescribed insulin [...] - 64 pg/mL 64.2 74 (H) Vitamin [id number] Latest Ref Range: 20 - 50 ng/mL [...] Diabetic care will be transferred over to [facility] and he has the following appointment: 03/27/2020 11:00 AM with Julia Ceja RD at the Diabetes Center at [address] [place] [address] Assessment & Plan (02/14/2020 4:56 PM EDT): Patient called and stated he's a diabetic and was advised to speak with his pcp Deep if anything was wrong. He stated he woke up with a small cut in right foot on the small toe. I did offer the CC but stated he would like to speak with his pcp first [phone] (namibian speaking) Assessment & Plan (11/13/2019 7:10 PM [...] of 09/19/2019 07:04 Ref. Range 09/16/2019 13:30 Hemoglobin A1c Latest [...] - 22 (calc) 23 (H) eGFR (NON -Equatorial [place]inean) Latest Ref Range: > OR = 60 [...] Pt is currently seeing our Diabetic Specialist WATER TREATMENT PLANT REPAIRER at [facility], talking with WATER TREATMENT PLANT REPAIRER on phone the Pt has developed an insulin resistance issues and she continues to modulate his medications and encourage the Pt to work on diet and exercise, the Pt's next appointment with our Diabetic Specialist NO is on 07/12/2019 Lab Results Component Value Date HGBA1C 13.7 05/30/2019 HGBA1C 13.9% 05/22/2019 HGBA1C 13.3 (H) 03/07/2019 HGBA1C 10.8 (H) 12/10/2018 Assessment & Plan (07/02/2019 9:08 AM EST): Pt continues to have an A1C above 10, Pt needs to meet with the [facility] Nurse with the goal to bring [...] bp/bg discussed Lab Results Component Value Date HGBA1C 13.7 05/30/2019 HGBA1C 13.9% 05/22/2019 HGBA1C 13.3 (H) 03/07/2019 HGBA1C 10.8 (H) 12/10/2018 Pt A1C goal [...] will continue to see Diabetic Clinic at [facility] for additional medication adjustments and will [...] will continue to see Diabetic Clinic at [facility] and re-evaluate Pt care in one [...] between 150-200=2u, 201-250=4u, 251-300=6u, 301-350=8u, 351- 400=10u, 401-450=12u Will see Pt in 2 days for [...] to clinic for regularly scheduled follow up. #TAYLOR/Abdominal distention On exam today the patient [...] intake hopefully to improve free water removal/excretion #HTN 24 hr ABPM which he unfortunately [...] in either home machine or BP log. #Palpitations C/b rapidly transient chest tightness. TTE [...] 6-8 weeks to be seen by his geographic analyst Dr. Newberry. Attending Addendum: I have seen and examined [...] medications range 120-130s/90s. -Plan: 1. Immediate plan: Resume spironolactone 25 mg in the evening. Continue tracking BPs and HRs at home Follow-up visit in 2 weeks 2. Future considerations: Consider trial of hydralazine in the evening Consider resuming amlodipine at lower dose if TAYLOR resolves given history of tolerating medication 3. To optimize lifestyle factors: Weight loss, consider bariatric surgery Continue to reduce sodium intake Follow-up with sleep medicine CCM: 15 minutes 10/14/2021 Deep Pruitt APRN Assessment & Plan (09/12/2021 4:18 PM EDT): 08/20/2021 Milton Reeves, KathiaD ASSESSMENT/PLAN: -Blood pressure is above goal of [...] that he is on this. I contacted [facility] pharmacy and they reported that on 06/28 and on 08/06 he was mailed 100 mg tablets with instructions to take 100 mg daily and 25 mg tablets with instructions to take 25 mg BID. BMP from 08/10/21 shows elevated Scr at 1.94. Plan: 1. Immediate plan: Remain off of spironolactone for right now, routed message to provider for recommendation Continue tracking BPs and HRs at home Follow-up visit in 2 weeks 2. Future considerations: Consider trial of hydralazine in the evening Consider resuming amlodipine at lower dose if TAYLOR resolves given history of tolerating medication 3. To optimize lifestyle factors: Weight loss, consider bariatric surgery Continue to reduce sodium intake Follow-up with sleep medicine CCM: 10 minutes [...] Scr at 1.94. Plan: 1. Immediate plan: Continue current medications Continue tracking BPs and HRs at home Follow-up visit in 2 weeks 2. Future considerations: Consider resuming amlodipine at lower dose if TAYLOR resolves given history of tolerating medication Consider trial of hydralazine in the evening 3. To optimize lifestyle factors: Weight loss, consider bariatric surgery Continue to reduce sodium intake Follow-up with sleep medicine CCM: 08/15/2021 Deep Pruitt APRN Assessment & Plan (08/06/2021 12:49 PM EDT): Will ask Nurse to call Pt to schedule a Pharmacist HTN visit Please ask Pt to return a call back to Fani Heath PharmD at 08/04/21 Fani Heath PharmD called Pt Called patient for scheduled pharmacist HTN visit. I was not able to reach patient and LVM requesting a call back. ID [id number] assisted call. Of note, appears patient was dropping off 24 hr BP monitor today so will look for those results to assist in further BP control recommendations. Fani Heath, PharmD Ramon Sr. Bhardwaj, lopez presi n arterial no estaba joselin controlada en el monitor de presi n arterial de lopez casa. Nos gustar a que love a los farmac uticos, quienes pueden ayudarlo a manejar esto. La remisi n se coloc en lopez ltima visita con el Dr. Newberry y deber a estar visible en [facility]. Nos gustar a que por favor los llame y programe sandee jill. Por favor hazme saber si tienes preguntas. Hello Mr. Bhardwaj, your blood pressure was not well-controlled on the home blood pressure monitor. We would like for you to see the pharmacists, who can help manage this. The referral was placed at your last visit with Dr. Newberry and should be visible in [facility]. We would like you to please call [...] pain and dyspnea # h/o CVA (NOT SD -- historical charting error) # Dyslipidemia with hyperTG Calculated LDL in 01/2020 was 38 on atorvastatin 80, but then up to 126 on 03/12/2020 (TG 358 at that time) Cardiovascular-adjacent problems: # REGI # DM2, poorly-controlled # Obesity (BMI 41) # CKD Assessment: While Mr Bhardwaj's chest pain was [...] have nocturnal chest pain despite BP control. Plan: Change losartan 100mg once daily to losartan 50mg twice a day Continue carvedilol 25mg twice a day Continue amlodipine 10mg daily I have placed an ambulatory referral to pharmacy's outpatient hypertension follow up program so he can be closely monitored and we can figure out if his nocturnal hypertension is sufficiently controlled on the above regimen Continue remaining cardiac medications at current doses If he feels his TAYLOR is worsening again, have low threshold to increase dose of furosemide to 80mg daily Consider TTE at next visit Continue aspirin 81mg daily given history of CVA Continue ezetimibe given HLD and HTG Plan to repeat lipid panel in the future when blood sugar better controlled, if TG remains >200 fasting, would Rx Lovaza. At this point his TG will be very elevated given his blood sugar (A1c >11) We have ordered 24 ambulatory blood pressure monitoring to see the variation in BP with time of day on the revised BP regimen Continue CPAP and supplemental O2 from pulmonology Post-clinic follow-up tasks: none RTC in 3 months It was a pleasure to see Darrel Bhardwaj in follow-up. The patient was seen and discussed with cardiology attending Dr Marin. Mariah Newberry MD MPH PGY-4 Attending Addendum: I have seen and examined [...] but still painful. Plan: 1. Immediate plan: Continue current medications Continue tracking BPs and HRs at home Messaged to provider to ensure patient can obtain supplemental oxygen Follow-up visit in 2 weeks 2. Future considerations: 24-hour ABPM Consider resuming amlodipine at lower dose if TAYLOR resolves given history of tolerating medication Consider trial of hydralazine in the evening 3. To optimize lifestyle factors: Weight loss, consider bariatric surgery Continue to reduce sodium intake Follow-up with sleep medicine CCM: 10 minutes 08/01/2021 Deep Pruitt APRN Assessment & Plan (07/21/2021 4:10 PM EDT): 07/13/2021 Cardiovascular F/U Note Assessment and Plan: Cardiovascular problem list: # HTN, worse nocturnally With associated chest pain and dyspnea # h/o CVA (NOT SD -- historical charting error) # Dyslipidemia with hyperTG Calculated LDL in 01/2020 was 38 on atorvastatin 80, but then up to 126 on 03/12/2020 (TG 358 at that time) Cardiovascular-adjacent problems: # REGI # DM2, poorly-controlled # Obesity (BMI 41) # CKD Assessment: While Mr Bhardwaj's chest pain was [...] have nocturnal chest pain despite BP control. Plan: Change losartan 100mg once daily to losartan 50mg twice a day Continue carvedilol 25mg twice a day Continue amlodipine 10mg daily I have placed an ambulatory referral to pharmacy's outpatient hypertension follow up program so he can be closely monitored and we can figure out if his nocturnal hypertension is sufficiently controlled on the above regimen Continue remaining cardiac medications at current doses If he feels his TAYLOR is worsening again, have low threshold to increase dose of furosemide to 80mg daily Consider TTE at next visit Continue aspirin 81mg daily given history of CVA Continue ezetimibe given HLD and HTG Plan to repeat lipid panel in the future when blood sugar better controlled, if TG remains >200 fasting, would Rx Lovaza. At this point his TG will be very elevated given his blood sugar (A1c >11) We have ordered 24 ambulatory blood pressure monitoring to see the variation in BP with time of day on the revised BP regimen Continue CPAP and supplemental O2 from pulmonology Post-clinic follow-up tasks: none RTC in 3 months It was a pleasure to see Darrel Bhardwaj in follow-up. The patient was seen and discussed with cardiology attending Dr Marin. Mariah Newberry MD MPH PGY-4 Attending Addendum: I have seen and examined [...] note were not included. 03/26/2021 Deep Pruitt, Ricarda Khan MD Hello Dr Shirali, Anushree: -Current B/P [...] PO OD to 25 mg PO BID, -Pt has a B/P cuff at home where his B/P can be monitored on a daily basis by his , will ask our [facility] Nurse to call Pt and verify [...] basis by his , will ask our [facility] Nurse to call Pt and verify [...] SOB, or being diaphoretic Assessment & Plan (01/18/2021 3:38 PM EDT): [...] recent creatinine/potassium from 01/07 stable, recheck in [facility] this week Assessment & Plan (01/04/2021 [...] in one week to manage HTN, used surgical garment assembly supervisor [id number], Pt denies experiencing any pain or tightness [...] EST): When the Pt was admitted to [facility] for [facility]ICOL[facility] they had stopped his Lisinopril [...] medication up weekly, spent 35 min with Investigation Officer [id number], will f/u with Pt in one month [...] needs to get all his meds in namibian and has an appointment on 02/24/2020 02/24/2020 3:40 PM Provider Deep Pruitt APRN [facility] Assessment & Plan (02/22/2020 5:19 AM EDT): I see that Losartan help protect the kidneys from damage due to diabetes, I will discontinue the atenolol and start him at Losartan 25 mg and slowly titrate him up and the Pt needs to get all his meds in namibian and has an appointment on 02/24/2020 02/24/2020 3:40 PM Provider Deep Pruitt APRN [facility] Assessment & Plan (03/16/2019 6:10 AM [...] (calc) 6.9 (H) The ASCVD Risk score (Nodawayhenry WOODWARD Jr., et al., 2013) failed to calculate for the following reasons: The patient has a prior SD or stroke diagnosis Assessment & Plan (12/18/2018 [...] to call Pt with results seen below (Haitian only please) -And let him know that his UTI results were negative and there is no reason for antibiotics 09/08/2021 PCP Note: Pt c/o burning with urination for the past 2 day, will ask Pt to do a urine culture before prescribing an Antibiotic medication used Haitian interpretor [id number] 09/10/2021 PCP Addendum Note: The Pt has [...] the Pt had colonoscopy at [facility] in [facility] and was told to return in a year for further surveillance because he had several polyps removed, the concern is that the Pt had a CVA x 2 in 2017 and need Neuro clearance and the Neuro referral was put in today Assessment & Plan (11/13/2019 7:05 PM EDT): Pt had a Colonoscopy done in [facility] in [facility] one year ago and was told [...] AM EDT): 01/02/2020 the 49 yo male (Haitian speaking only) with a BMI of 39.6, last A1C Dec 2019 increased to 13.7, in 2018 the Pt had a right sided stroke (minimal residual speech and walking issues) and is working with our Diabetic WATER TREATMENT PLANT REPAIRER Specialist to bring his sugars down, Pt is again developing swelling of his left foot and again is developing some eurthmia, warmth, tenderness with touch, Pt had difficulty waking on his left foot, Pt was informed that with this 3rd episode of cellulitis he should go to the ED to get admitted to get IV ABX and get his A1C of 13.7 under better control and figure out how come his lower extremites keep swelling, the Pt stated he will be going to go the Hospital tomorrow morning -10/23/2019 the 49 yo male with a [...] for IV abx and further follow up, -10/02/2019: Pt has a BMI of 40.4, [...] Plan (11/13/2019 7:08 PM EDT): Used a Investigation Officer [id number] for the entire 25 min visit, Pt [...] with Pt in 1 weeks, used a Investigation Officer [id number] throughout the visit -10/23/2019 the Pt again [...] with Pt in 2 weeks, used a Investigation Officer Propio through out the visit Assessment & [...] (H) -Pt will be referred to the [facility] Patent Leather Sorter to assess if his current diet is helping with his Diabetes and Renal issues as listed above -Pt is currently taking Carvedilol (COREG) 18.5 mg Immediate Release tablet PO BID Lasix 60 mg PO QD Losartan (COZAAR) 100 mg tablet 100 mg PO QD Spirolactone 50 mg PO QD -Pt's Spirolactone will be increased from 50 mg PO QD to 50 mg PO BID and have Nurse f/u with Pt to in 2 wks. check if he has compression stocking and what is his B/P -Will send note to Renal Provider for further assistance and assessment Perla Rice RN message to Deep Pruitt WATER TREATMENT PLANT REPAIRER Call was returned to patient and his [...] input from his primary care physician and drawing machine operator would be helpful. Considerations would include: stopping amlodipine, increasing diuretics, re-assessing labs for kidney function (e.g. is proteinuria worsening), and dietary interventions. Also counseled patient that weight loss would likely be helpful. I think his sail repairer can be helpful with managing his midfoot [...] input from his primary care physician and drawing machine operator would be helpful. Considerations would include: stopping amlodipine, increasing diuretics, re-assessing labs for kidney function (e.g. is proteinuria worsening), and dietary interventions. Also counseled patient that weight loss would likely be helpful. 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 He will follow up with me as needed for ongoing issues, but optimizing his edema prior to that follow up appointment would be helpful. Diagnosis: Bilateral foot pain - some midfoot arthritis Bilateral foot and ankle edema - this is likely related to venous insufficiency and CKD Bilateral feet, 4 views each (AP, lateral, oblique and sesamoid) INDICATION: Pain to first MTPs bilaterally COMPARISON: 02/04/2020 FINDINGS: There are mild midfoot degenerative changes bilaterally. There is a bipartite medial sesamoid on the right, similar to prior. The hallux sesamoids otherwise appear unremarkable. No degenerative changes are noted at the first MTPs. Enthesophytes are noted off the calcaneal tuberosities bilaterally. IMPRESSION: No definite abnormality is noted around the first MTPs bilaterally. Mild midfoot degenerative changes. Plan: Additional testing: none at this time Activity modification: continue wearing orthopedic shoes; suggest trying Superfeet blue insoles in your shoes for an arch support - can buy online (not covered by insurance) Medications: ok to take tylenol 1,000mg up to three times a day as needed for pain Therapy: none Referrals: none at this time - plan for regular follow up with your sail repairer, primary care physician, and drawing machine operator Follow-up: as needed with me Other interventions: recommend keeping the legs elevated when sitting (try to get feet above the level of the heart to get the fluid to come down; also recommend new pair of custom graduated compression stockings - wear daily - please call [facility] for an appointment to be measured for the new stockings so they fit you well. [facility] [address] [place] [id number] , PCP Notes: Will stop Amlodipine 5 mg PO QD and start Pt on Spirolactone 25 mg PO QD and assess in 2 weeks if Spirlactatone needs to be increased to 25 mg BID Will fax to [employer] order for Compression stocking and put contact info in AVS for the Pt to call and arrange for sizing CCM: 10 minutes 12/29/2020 Deep Pruitt APRN Assessment & Plan (06/24/2020 3:44 PM EST): 06/13/2020 the Pt had 2 pairs of Knee high compression stockings ordered and sent to [facility] and the Pt has to call [facility] so he can be measured and then pick them up when they arrive Assessment & Plan (06/13/2020 7:10 AM EST): Pt continues to deal with bilateral lower extremity edema will order Compression sleeves today from [facility] today, Put on lower legs during the day and take off at night, and wash and let dry and put on 2nd pair on the following day for Edema, lower extremity R60.0, will send to [facility] today Assessment & Plan (05/26/2020 5:58 [...] in 2 days at his next appointment Haitian Interpretor #[id number] CCM: 20 minutes 05/26/2020 Deep Pruitt APRN [...] to the need for podiatric follow up. Plan: - Continue DMII and CKD management [...] and therefore nonocclusive thrombus cannot be excluded. US RENAL on 02/04/2020 8:08 PM for Renal Failure -FINDINGS: The right kidney measures 13.7 cm [...] MD Department Ambulatory Surgical Specialties - Vascular 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 More than 4 times per year [...] Date Recorded PHQ-2 Total Score 2 02/17/2022 [facility] [...] your living situation today? I have a [facility] place to live 05/19/2022 Sex and [...] 109 06/23/2022 1:32 PM EST Temperature 36.1 C (96.9 F) 04/21/2022 12:00 PM EST Respiratory Rate 17 06/23/2022 1:32 [...] Additional history exists LDL monitoring 03/14/2023 03/14/2022, 1111/2021, 09/09/2021, Additional history exists Diabetic foot exam 04/28/2023 04/28/2022, 0 07/14/2021, 08/26/2020, Additional history exists Influenza vaccine 12/06/2024 02/01/2024, , 03/24/2022, Additional history exists Colon cancer screening, Colonoscopy 09/03/2030 09/03/2020, 09/03/2020, 03/20/2012 Tetanus adult (Td q 10,TDAP once) 03/24/2032 03/24/2022, 10/05/2016 RSV Immunization (1 - 1-dose 75+ series) 2045 Hepatitis B vaccine series Completed 04/05, 10/05/2016, 08/17/2016 Hepatitis C screening Completed 02/06/2020, 019 Pneumococcal Vaccine (2 - 49 years) Discontinued 03/24/2022, 01/21/2021 Pneumococcal Vaccine (50+ years) Completed 03/24/2022, 01/21/2021 Covid-19 vaccine series Completed 02/01/20 24, 04/14/2021, 08/28/2020, Additional history exists HIV screening Completed 10/07/2024, 12/10/2018 Meningococcal B Vaccine Aged Out No l [...] 9:01 AM EDT Screening for prostate cancer OR PROPHYLAXIS - ADULT Routine 08/10/2021 10:45 AM EDT Encounter for dental exam and cleaning w/o abnormal findings OR BITEWINGS - FOUR RADIOGRAPHC IMAGES Routine 07/05/2021 10:30 AM EST Encounter for dental examination OR PERIODIC ORAL EVALUATION EST PT Routine 07/05/2021 10:30 AM EST Encounter for dental examination Oral frictional keratosis Partially edentulous mandible, unspecified edentulism class Secondary dental caries associated with failed or defective dental buddhist Dental caries on smooth surface penetrating into [...] Results * (ABNORMAL) POCT HgbA1c, total CPT: 22641 (06/23/2022 4:21 PM EST) Hemoglobin A1C, POC 10.6 4.0 - 6.0 % [facility] Test Lot Number [id number] [facility] Test Lot Exp Date 09/18/22 Date Format: MM/DD/YYYY [facility] Blood specimen (specimen) 06/23/2022 4:21 PM EST Deep Pruitt APRN POINT OF CARE TEST ORDERABL ES Final Result Performing Organization Address [facility]/ZIP Co de Phone Number [facility] * (ABNORMAL) LDL cholesterol, direct (03/14/2022 9:17 AM EST) Direct LDL 101(H) <100 mg/dL [facility] Comment: Greatly elevated Triglycerides values (>1200 mg/dL) interfere with the dLDL assay. As no Triglycerides testing was ordered, interpret results with caution. Desirable range <100 mg/dL for primary prevention; <70 mg/dL for patients with CHD or diabetic patients with > or = 2 CHD risk factors. Blood 03/14/2022 9:17 AM EST 03/14/2022 9:18 AM EST Narrative Resulting Agency Comment Performing Lab: Site ID: [id number] Name: [facility] Address: [address] [place] [address], [facility] [place] [address] Director: Yadira Bowman M.D. Deep Pruitt APRN LAB BLOOD ORDERABLES Final Result [facility] [address] [place] [address] * (ABNORMAL) Albumin/creatinine panel, urine, random (02/15/2022 2:02 PM EDT) Albumin, Urine, Random 1,885.3 Reference Range Not Established mg/L 02/15/2022 3:42 PM EDT [facility] Creatinine, Urine, Random 60 Reference Range Not Established mg/dL 02/15/2022 3:42 PM EDT [facility] Albumin/Creatin ine Ratio, Urine, Random 3,168.6(H ) <30.0 mg/g Cr 02/15/2022 3:42 PM EDT [facility] Comment: Moderately increased albuminuria (formerly microalbuminuria): 30-300 mg/g Cr Significantly increased albuminuria (overt albuminuria): >300 mg/g Cr Urine Collection / Unknown 02/15/2022 2:02 PM EDT 02/15/2022 2:59 PM EDT Yue Dominguez APRN URINE ORDERABLES Final Res ult [facility] [address] [place] [address], [facility] [phone] * PSA, total (Q) (09/09/2021 9:01 AM [...] FASTING: YES Resulting Agency Comment Performing Lab: Site ID: [id number] Name: [facility] Address: [address] [place] [address], [place] [address] Director: Yadira Bowman M.D. us Deep S [place] HUMAN RESOURCES GENERALIST LAB BLOOD ORDERABLES Final Result [facility] [address] [place] [address], [facility] * Colonoscopy (09/03/2020 10:16 AM EDT) Colonoscopy [facility] Endoscopy Patient Name: Darrel Bhardwaj Procedure Date: 09/03/2020 10:16 AM Date of : 1970 Age: 50 Admit Type: Outpatient Gender: Male CSN #: [id number] Note Status: Finalized Procedure Date no Time: 09/03/2020 Attending MD: Nolan Sylvester , Procedure: Colonoscopy Indications: High risk colon cancer surveillance: Personal history of colonic polyps Providers: Nolan Sylvester (Doctor) Medicines: Monitored Anesthesia Care Complications: No immediate complications. Requesting Provider: Procedure: Pre-Anesthesia Assessment: - Prior to the procedure, a History and Physical was performed, and patient medications and allergies were reviewed. The patient is competent. The risks and benefits of the procedure and the sedation options and risks were discussed with the patient. All questions were answered and informed consent was obtained. Patient identification and proposed procedure were verified by the physician in the pre-procedure area. Mental Status Examination: alert and oriented. Airway Examination: normal oropharyngeal airway and neck mobility. Respiratory Examination: clear to auscultation. CV Examination: normal. Prophylactic Antibiotics: The patient does not require prophylactic antibiotics. Prior Anticoagulants: The patient has taken no previous anticoagulant or antiplatelet agents. ASA Grade Assessment: III - A patient with severe systemic disease. After reviewing the risks and benefits, the patient was deemed in satisfactory condition to undergo the procedure. The anesthesia plan was to use monitored anesthesia care (MAC). Immediately prior to administration of medications, the patient was re-assessed for adequacy to receive sedatives. The heart rate, respiratory rate, oxygen saturations, blood pressure, adequacy of pulmonary ventilation, and response to care were monitored throughout the procedure. The physical status of the patient was re-assessed after the procedure. After obtaining informed consent, the scope was passed under direct vision. Throughout the procedure, the patient's blood pressure, pulse, and oxygen saturations were monitored continuously. The was introduced through the anus and advanced to the cecum, identified by appendiceal orifice and ileocecal valve. The ileocecal valve, appendiceal orifice, and rectum were photographed. The entire colon was visualized. The colonoscopy was performed without difficulty. The patient tolerated the procedure well. The quality of the bowel preparation was evaluated using the BBPS (Mcdonald Bowel Preparation Scale) with scores of: Right Colon = 2 (minor amount of residual staining, small fragments of stool and/or opaque liquid, but mucosa seen well), Transverse Colon = 2 (minor amount of residual staining, small fragments of stool and/or opaque liquid, but mucosa seen well) and Left Colon = 2 (minor amount of residual staining, small fragments of stool and/or opaque liquid, but mucosa seen well). The total BBPS score equals 6. Findings: The perianal and digital rectal examinations were normal. A 4 mm polyp was found in the cecum. The polyp was semi-pedunculated. The polyp was removed with a cold biopsy forceps. Resection and retrieval were complete. Verification of patient identification for the specimen was done by the nurse using the patient's name, date and medical record number. Estimated blood loss: none. The exam was otherwise without abnormality. Impression: - One 4 mm polyp in the cecum, removed with a cold biopsy forceps. Resected and retrieved. - The examination was otherwise normal. Recommendation: - Discharge patient to home. - Discharge patient to home (ambulatory). - Resume previous diet. - Continue present medications. - Await pathology results. - Repeat colonoscopy date to be determined after pending pathology results are reviewed for surveillance. Procedure Code(s): --- Professional --- 18427, Colonoscopy, flexible; with biopsy, single or multiple Diagnosis Code(s): --- Professional --- Z86.010, Personal history of colonic polyps D12.0, Benign neoplasm of cecum CPT copyright 2018 [employer]. All rights reserved. The codes documented in this report are preliminary and upon typewriter mechanic review may be revised to meet current compliance requirements. Attending Participation: I personally performed the entire procedure. Nolan Sylvester, 09/03/2020 11:04:33 AM This report has been signed electronically. Number of Addenda: 0 Note Initiated On: 09/03/2020 10:16 AM Scope Withdrawal Time: 0 hours 10 minutes 36 seconds Total Procedure Duration: 0 hours 16 minutes 57 seconds Estimated Blood Loss: Estimated blood loss: none. Scope In: 10:41:36 AM Scope Out: 10:58:33 AM [facility] 09/03/2020 10:1 6 AM EDT Provider Not In System GI PROCEDURE ORDERABLES F inal Result [facility] * Hepatitis C Ab with reflex to HCV PCR (02/06/2020 7:18 AM EDT) Hepatitis C Antibody Negative Negative 02/06/2020 4:21 PM EDT [facility] Comment:A negative result do es not exclude HCV infection, since antibodies are not detectable for 4-8 weeks after initial infection, or may not develop in compromised hosts. In high-risk individuals, repeat antibody testing in 2 months and/or HCV RNA PCR should be considered. Blood Venipuncture / Unknown 02/06/2020 7:18 AM EDT 02/06/2020 8:06 AM EDT Jordyn Lacossade HUMAN RESOURCES GENERALIST LAB BLOOD ORDERABLES Fauzia l Result Performing Organization Address [facility]/State/ZIP Co de Phone Number [facility] [address] [place] [address] * HIV 1/2 ag/ab, w/reflexes (Q) (12/10/2018 10:32 AM EDT) HIV Ag/Ab, 4th Generation NON-REACT NICKIE NON-REACT NICKIE [facility] Comment: HIV-1 antigen and HIV-1/HIV-2 antibodies were not detected. There is no laboratory evidence of HIV infection. PLEASE NOTE: This information has been disclosed to you from records whose confidentiality may be protected by state law. If your state requires such protection, then the state law prohibits you from making any further disclosure of the information without the specific written consent of the person to whom it pertains, or as otherwise permitted by law. A general authorization for the release of medical or other information is NOT sufficient for this purpose. For additional information please refer to http://education.[employer]/faq/GNL322 (This link is being provided for informational/ educational purposes only.) The performance of this assay has not been clinically validated in patients less than 2 years old. Blood 12/10/2018 10:3 2 AM EDT 12/10/2018 10:32 AM EDT Carlos Eduardo Joyner MD LAB BLOOD ORDERABLES Fi nal Result Performing Organization Address [facility] Co de Phone Number [facility] [address] [place] [address] from Last 3 Months or Most Recently Relevant to Health Maintenance Insurance [place] Advance Directives * Full ACLS (Latest Code Status on File) Date Activated Date Inactivated Comments 02/04/2020 9:46 PM 02/07/2020 8:23 PM Question Answer Comments With Whom was the Code Status Discussed? Patient Care Teams Electronic Repair Troubleshooter Relationship Specialty Start Date End Date Deep Pruitt APRN PCP - General 1/15/20
--- OUTSIDE RECORDS SUMMARY | 2025-01-14 16:29 | XMS_ITS | Encounter Summary ---
Author Organization [facility] [employer] [facility] Address [address] [place] [phone] Care Team Providers Care Artificial Stone Applicator Name Role Phone Deep Pruitt APRN Primary Care Provider Encounter Details Date Type Department Care Team (Latest Contact Info) Description 09/13/2021 Transcribed Orders [facility] Specimens [address] [place] [address] Deep Pruitt APRN [address] [place] [address] Encounter for routine screening for [...] - 3.900 ng/mL 09/13/2021 1:44 PM EDT [facility] Prostate Specific Antigen, Free (YH) 0.28 0.00 - 3.90 ng/mL 09/13/2021 1:44 PM EDT [facility] Comment:Prostate Specific An tigen, Free Percentage can not be calculated. PSA, Total value out of appropriate range. Blood Venipuncture / Unknown 09/09/2021 12:05 PM EDT 09/13/2021 10:48 AM EDT Narrative [facility] - 09/13/2021 1:44 PM EDT Prostate Specific Antigen, Free Percentage is calculated as (Prostate Specific Antigen, Free/Prostate Specific Antigen, Total) x 100 in the range of 2-10 ng/mL. Reported studies indicate that malignancy is associated with a lower percentage of Prostate Specific Antigen, Free than that observed in benign conditions. These studies indicate that an upper limit (cutoff) of 25% is associated with a sensitivity of 95% for detection of prostatic cancer in patients with a Prostate Specific Antigen, Total in the range of 4-10 ng/mL and normal digital rectal examination. Its usefulness in patients whose Prostate Specific Antigen, Total is outside the range of 4-10 ng/mL has not been well documented, although some studies suggest that a similar cut-off may apply to total values in the 2-4 ng/mL range. Deep Pruitt APRN LAB BLOOD ORDERABLES Final Result [facility] [address] [place] [address] documented in this encounter Visit Diagnoses Diagnosis [...] documented as of this encounter Care Teams Artificial Stone Applicator Relationship Specialty Start Date End Date Deep Pruitt APRN PCP - General 05/22/19 documented as of this encounter
--- OUTSIDE RECORDS SUMMARY | 2025-01-14 16:29 | XMS_ITS | Encounter Summary ---
Author Organization [facility] Address [address] [place] [address] Care Team Providers Care Horse Identifier Name Role Phone Deep Pruitt APRN Primary Care Provider Reason for Visit * Reason Comments Medication Refill Encounter Details Date Type Department Care Team ([facility] st Contact Info) Description 09/16/2021 Refill [facility] [address] [place] [address] Deep Pruitt APRN [address] [place] [phone] Medication Refill Social History Tobacco Use [...] Date Recorded PHQ-2 Total Score 5 09/14/2021 [facility] [...] documented as of this encounter Care Teams Horse Identifier Relationship Specialty Start Date End Date Deep Pruitt APRN PCP - General 05/22/19 documented as of this encounter
--- OUTSIDE RECORDS SUMMARY | 2025-01-14 16:29 | XMS_ITS | Encounter Summary ---
Author Organization [facility] Address [address] [place] [address] Care Team Providers Care Assisted Sales Representative Name Role Phone Deep Pruitt APRN Primary Care Provider Reason for Visit * Reason Comments Medication Refill Encounter Details Date Type Department Care Team ([facility] st Contact Info) Description 09/23/2020 Refill [facility] [address] [place] [address] Deep Pruitt APRN [address] [place] [phone] Medication Refill Social History Tobacco Use [...] [facility] - Occupational Stress Questionnaire Answer [...] documented as of this encounter Care Teams Assisted Sales Representative Relationship Specialty Start Date End Date Deep Pruitt APRN PCP - General 05/22/19 documented as of this encounter
--- OUTSIDE RECORDS SUMMARY | 2025-01-14 16:29 | XMS_ITS | Encounter Summary ---
Author Organization [facility] Address [address] [place] [address] Care Team Providers Care Aircraft Charter Dispatcher Name Role Phone Deep Pruitt APRN Primary Care Provider Encounter Details Date Type Department Care Team ([facility] st Contact Info) Description 10/26/2020 Scanned Document [facility] [address] [place], [place] [phone] Deep Pruitt APRN [address] [place] [address] Social History Tobacco Use Types [...] Date Recorded PHQ-2 Score 2 07/07/2020 [facility]at [...] as of this encounter Care Teams Aircraft Charter Dispatcher Relationship Specialty Start Date End Date Deep Pruitt APRN PCP - General 05/22/19 documented as of this encounter
--- OUTSIDE RECORDS SUMMARY | 2025-01-14 16:29 | XMS_ITS | Encounter Summary ---
Author Organization [facility] Address [address] [place] [address] Care Team Providers Care Summer Internship Name Role Phone Deep Pruitt APRN Primary Care Provider Encounter Details Date Type Department Care Team ([facility] st Contact Info) Description 06/21/2022 Scanned Document [facility] [address], [place] [phone] Deep Pruitt APRN [address] [place] [address] Social History Tobacco Use Types [...] Date Recorded PHQ-2 Total Score 2 [facility] Questionnaire Answer [...] your living situation today? I have a [facility] place to live 05/19/2022 Sex [...] as of this encounter Care Teams Summer Internship Relationship Specialty Start Date End Date Deep Pruitt APRN PCP - General 05/22/19 documented as of this encounter
--- OUTSIDE RECORDS SUMMARY | 2025-01-14 16:29 | XMS_ITS | Encounter Summary ---
Author Organization [facility] Address [address] [place] [address] Care Team Providers Care Batch Mixer Name Role Phone Romelia Pruittian Niko LOPEZ Primary Care Provider [phone] Encounter Details Date Type Department Care Team (Late st Contact Info) Description 09/08/2021 Scanned Document [facility] [address] [place] [address] External, Provider Social History Tobacco Use Types [...] Recorded PHQ-2 Total Score 2 09/08/2021 [facility] Occupat ional [...] documented as of this encounter Care Teams Batch Mixer Relationship Specialty Start Date End Date Deep Pruitt APRN PCP - General 05/22/19 documented as of this encounter
--- OUTSIDE RECORDS SUMMARY | 2025-01-14 16:29 | XMS_ITS | Encounter Summary ---
Author Organization [facility] Address [address] [place] [phone] Care Team Providers Care Teradata Solution Architect Name Role Phone Deep Pruitt APRN Primary Care Provider Encounter Details Date Type Department Care Team (Latest Contact Info) Description 09/09/2021 Transcribed Orders [place] [facility] - [address] [place] [address] Deep Pruitt APRN [address] [place] [address] Encounter for routine screening for [...] Date Recorded PHQ-2 Total Score 2 09/08/2021 [facility] [...] r Schedule TSH w/reflex to FT4 ([facility] Q [facility]) Lab Routine Encounter [...] care facility TSH W/REFLEX TO FT4 ([facility] LMW Q YH) Routine 09/09/2021 12:05 [...] prostate Routine general medical examination [facility] ALBUMIN/CREATININE PANEL, URINE, RANDOM Routine 09/09/2021 11:01 AM EDT Encounter for routine screening for malformation using ultrasonics Special screening for malignant neoplasm of prostate Routine general medical examination at a [facility] CBC WITH AUTO DIFFERENTIAL Routine 09/09/2021 10:58 AM EDT Encounter for routine screening for malformation using ultrasonics Special screening for malignant neoplasm of prostate Routine general medical examination at a [facility] CBC AND DIFFERENTIAL Routine 09/09/2021 10:58 AM EDT Encounter for routine screening for malformation using ultrasonics Special screening for malignant neoplasm of prostate Routine general medical examination at a [facility] HEMOGLOBIN A1C Routine 09/09/2021 10:58 AM EDT Encounter for routine screening for malformation using ultrasonics Special screening for malignant neoplasm of prostate Routine general medical examination at a health care facility documented in this encounter Results * PSA, total and free (09/09/2021 12:05 PM EDT) Prostate Specific Antigen, Total (YH) 0.578 0.000 - 3.900 ng/mL 09/13/2021 1:44 PM EDT [facility] Prostate Specific Antigen, Free (YH) 0.28 0.00 - 3.90 ng/mL 09/13/2021 1:44 PM EDT [facility] Comment:Prostate Specific An tigen, Free Percentage can not be calculated. PSA, Total value out of appropriate range. Blood Venipuncture / Unknown 09/09/2021 12:05 PM EDT 09/13/2021 10:48 AM EDT Narrative [facility] - 09/13/2021 [...] BLOOD ORDERABLES Final Result Performing Organization Address City/State/[facility] Co de Phone Number [facility] [address] [place] [address] * (ABNORMAL) Comprehensive metabolic panel (09/09/2021 12:05 PM EDT) Sodium 140 136 - 144 mmol/L 09/09/2021 2:42 PM EDT [facility] Potassium 4.9 3.3 - 5.3 mmol/L 09/09/2021 2:42 PM EDT [facility] Chloride 101 98 - 107 mmol/L 09/09/2021 2:42 PM EDT [facility] CO2 27 20 - 30 mmol/L 09/09/2021 2:42 PM EDT [facility] Anion Gap 12 7 - 17 09/09/2021 2:42 PM EDT [facility] Glucose 148(H) 70 - 100 mg/dL 09/09/2021 2:42 PM EDT [facility] BUN 31(H) 6 - 20 mg/dL 09/09/2021 2:42 PM EDT [facility] Creatinine 1.40(H) 0.40 - 1.30 mg/dL 09/09/2021 2:42 PM EDT [facility] Calcium 9.5 8.8 - 10.2 mg/dL 09/09/2021 2:42 PM EDT [facility] BUN/Creatinine Ratio 22.1 8.0 - 23.0 09/2021 2:42 PM EDT [facility] Total Protein 6.4(L) 6.6 - 8.7 g/dL 09/09/2021 2:42 PM EDT [facility] Albumin 3.6 3.6 - 4.9 g/dL 09/09/2021 2:42 PM EDT [facility] Total Bilirubin 0.2 <=1.2 mg/dL 09/09/2021 2:42 PM EDT [facility] Alkaline Phosphatase 135(H) 9 - 122 U/L 09/09/2021 2:42 PM EDT [facility] Alanine Aminotransferase (ALT) 40 9 - 59 U/L 09/09/2021 2:42 PM EDT [facility] Comment:Calcium dobesilate c an cause artificially low ALT results at therapeutic concentrations Aspartate Aminotransferase (AST) 33 10 - 35 U/L 09/09/2021 2:42 PM T [facility] Globulin 2.8 2.3 - 3.5 g/dL 09/09/2021 2:42 PM T [facility] A/G Ratio 1.3 1.0 - 2.2 09/09/2021 2:42 PM EDT [facility] AST/ALT Ratio 0.8 See Comment 09/09/2021 2:42 PM T [facility] Comment: Adult with mild elevations of transaminases (< 5 times upper limit of normal): AST/ALT > 2 suggests alcoholic liver injury AST/ALT < 1 suggests non-alcoholic fatty liver disease (NAFLD) Canvas (healthy): AST/ALT can be > 3 on day 0 AST/ALT < 2 by day 5 The thresholds provided focus on the most common etiologies of elevated serum transaminase levels and the associated alteration of AST:ALT ratios; they are not intended to exclude other feasible and clinically appropriate possibilities eGFR (Afr Amer) >60 >60 mL/min/1.7 3m2 09/09/2021 2:42 PM EDT [facility] Comment: Values under 60mL/min/1.73m2 may indicate CKD if noted for more than 3 months. eGFR is only valid if creatinine is at steady state. eGFR (NON -Panamanian) 53 >60 mL/min/1.7 3m2 09/09/2021 2:42 PM EDT [facility] Comment: Values under 60mL/min/1.73m2 may indicate CKD if noted for more than 3 months. eGFR is only valid if creatinine is at steady state. Blood Venipuncture / Unknown 09/09/2021 12:05 PM EDT 09/09/2021 12:05 PM EDT Deep Pruitt TERMITE RENEWAL INSPECTOR LAB BLOOD ORDERABLES Final Result [facility] [address] [place] [address] * TSH w/reflex to FT4 ([facility] LMW Q YH) (09/09/2021 12:05 PM EDT) Thyroid Stimulating Hormone 3.640 See Comment IU/mL 09/09/2021 2:42 PM EDT [facility] Comment: Male & Non- Females: 0.270-4.200 IU/mL 1st Trimester: 0.110-3.480 IU/mL 2nd Trimester: 0.320-3.850 IU/mL Blood Venipuncture / Unknown 09/09/2021 12:05 PM EDT 09/09/2021 12:05 PM EDT Deep Pruitt TERMITE RENEWAL INSPECTOR LAB BLOOD ORDERABLES Final Result [facility] [address] [place] [address] * LDL cholesterol, direct (09/09/2021 12:05 PM EDT) LDL Direct 63 See Comment mg/dL 09/09/2021 2:41 PM EDT [facility] Comment: LDL Cholesterol (mg/dL) Adults (>=18 years) Children (<18 years) Desirable <100 <110 Above Desirable 100-129 Not Established Borderline-High 130-159 110-129 High 160-189 >=130 Very High >=190 Not Established Blood Venipuncture / Unknown 09/09/2021 12:05 PM EDT 09/09/2021 12:05 PM EDT Deep Pruitt APRN LAB BLOOD ORDERABLES Final Result [facility] [address] [place] [address], [facility] [phone] * (ABNORMAL) Albumin/creatinine panel, urine, random (09/09/2021 11:01 AM EDT) Albumin, Urine, Random 1,616.3 Reference Range Not Established mg/L 09/09/2021 2:52 PM EDT [facility] Creatinine, Urine, Random 35 Reference Range Not Established mg/dL 09/09/2021 2:52 PM EDT [facility] Albumin/Creatin ine Ratio, Urine, Random 4,684.9(H ) <30.0 mg/g Cr 09/09/2021 2:52 PM EDT [facility] Comment: High albuminuria (formerly microalbuminuria): 30-300 mg/g Cr Very high albuminuria (overt albuminuria): >300 mg/g Cr Urine Collection / Unknown 09/09/2021 11:01 AM EDT 09/09/2021 11:01 AM EDT us Deep Pruitt TERMITE RENEWAL INSPECTOR URINE ORDERABLES Final Resu lt [facility] [address] [place] [address], [facility] [phone] * (ABNORMAL) CBC auto differential (09/09/2021 10:58 AM EDT) WBC 13.5(H) 4.0 - 11.0 x1000/ L 09/09/2021 2:16 PM EDT [facility] RBC 5.05 4.00 - 6.00 M/ L 09/09/2021 2:16 PM EDT [facility] Hemoglobin 13.9 13.2 - 17.1 g/dL 09/09/2021 2:16 PM EDT [facility] Hematocrit 46.10 38.50 - 50.00 % 09/09/2021 2:16 PM EDT [facility] MCV 91.3 80.0 - 100.0 fL 09/09/2021 2:16 PM EDT [facility] MCH 27.5 27.0 - 33.0 pg 09/09/2021 2:16 PM EDT [facility] MCHC 30.2(L) 31.0 - 36.0 g/dL 09/09/2021 2:16 PM EDT [facility] RDW-CV 15.1(H) 11.0 - 15.0 % 09/09/2021 2:16 PM EDT [facility] Platelets 298 150 - 420 x1000/ L 09/09/2021 2:16 PM EDT [facility] MPV 13.0(H) 8.0 - 12.0 fL 09/09/2021 2:16 PM EDT [facility] Neutrophils 63.6 39.0 - 72.0 % 09/09/2021 2:16 PM EDT [facility] Lymphocytes 22.5 17.0 - 50.0 % 09/09/2021 2:16 PM EDT [facility] Monocytes 9.2 4.0 - 12.0 % 09/09/2021 2:16 PM EDT [facility] Eosinophils 3.6 0.0 - 5.0 % 09/09/2021 2:16 PM EDT [facility] Basophil 0.4 0.0 - 1.4 % 09/09/2021 2:16 PM EDT [facility] Immature Granulocytes 0.7 0.0 - 1.0 % 09/09/2021 2:16 PM EDT [facility] nRBC 0.0 0.0 - 1.0 % 09/09/2021 2:16 PM T [facility] ANC(Abs Neutrophil Count) 8.60(H) 2.00 - 7.60 x 1000/ L 09/09/2021 2:16 PM EDT [facility] Absolute Lymphocyte Count 3.05 0.60 - 3.70 x 1000/ L 09/09/2021 2:16 PM EDT [facility] Monocyte Absolute Count 1.24(H) 0.00 - 1.00 x 1000/ L 09/09/2021 2:16 PM EDT [facility] Eosinophil Absolute Count 0.49 0.00 - 1.00 x 1000/ L 09/09/2021 2:16 PM EDT [facility] Basophil Absolute Count 0.06 0.00 - 1.00 x 1000/ L 09/09/2021 2:16 PM T [facility] Absolute Immature Granulocyte Count 0.10 0.00 - 0.30 x 1000/ L 09/09/2021 2:16 PM T [facility] Absolute nRBC 0.00 0.00 - 1.00 x 1000/ L 09/09/2021 2:16 PM [facility] Blood Venipuncture / Unknown 09/09/2021 10:58 AM EDT 09/09/2021 10:58 AM EDT Deep Pruitt APRN LAB BLOOD ORDERABLES Final Result Performing Organization Address City/[facility]/ZIP Co de Phone Number [facility] [address] [place] [phone] [place] [address] * (ABNORMAL) Hemoglobin A1c (09/09/2021 10:58 AM EDT) Hemoglobin A1c 11.5(H) 4.0 - 5.6 % 09/10/2021 6:36 PM EDT [facility] Comment: Hemoglobin A1c values of 5.7-6.4 % identify individuals with an increased risk for future diabetes and to whom the term pre-diabetes may be applied. Hemoglobin A1c values greater than 6.4% on more [...] mg/dL 283 mg/dL 09/10/2021 6:36 PM EDT [facility] Comment: Estimated average glucose (eAG) is a calculated value designed to estimate the expected average blood glucose level throughout the day from a single measurement of glycated hemoglobin A1C (HbA1c) and follows the calculation proposed by the [place] [employer] (Diabetes Care 31: 1-6, 2008). It may have less accuracy in children, women and patients with certain erythrocyte disorders. Blood Venipuncture / Unknown 09/09/2021 10:58 AM EDT 09/09/2021 10:58 AM EDT Deep Pruitt APRN LAB BLOOD ORDERABLES Final Result Performing Organization Address City/[facility]/ZIP Co de Phone Number [facility] [address] [place] [address], [facility] [phone] documented in this encounter Visit Diagnoses Diagnosis [...] documented as of this encounter Care Teams Teradata Solution Architect Relationship Specialty Start Date End Date Deep Pruitt APRN PCP - General 05/22/19 documented as of this encounter
--- OUTSIDE RECORDS SUMMARY | 2025-01-14 16:29 | XMS_ITS | Encounter Summary ---
Author Organization [facility] [employer] [facility] Address [address] [place] [phone] Care Team Providers Care Journeyman Press Operator Name Role Phone Romelia Pruittian Niko LOPEZ Primary Care Provider Encounter Details Date Type Department Care Team (Latest Contact Info) Description 08/10/2021 Transcribed Orders [facility] [address] [place] [address] Taylor Malagon, [employer] [address] [place] [address] Stage 3a chronic kidney disease [...] - 4.5 mg/dL 08/10/2021 10:26 AM EDT [facility] Blood Venipuncture / Unknown 08/10/2021 9:40 AM EDT 08/10/2021 9:56 AM EDT Taylor Malagon APRN LAB BLOOD ORDERABLES Fauzia guzman Result [facility] [address] [place] [address] documented in this encounter Visit Diagnoses Diagnosis Stage 3a chronic kidney disease (CKD) (HC Code) (HC CODE)- Primary documented in this encounter Additional Health Concerns Infection Onset Date Last Indicated Resolved Time COVID-19 09/29/2021 09/29/2021 10/19/2021 7:19 PM EDT Assessment Noted Time PHQ-9 Depression Total Score: 11 022 2:28 PM EST documented as of this encounter Care Teams Journeyman Press Operator Relationship Specialty Start Date End Date Deep Pruitt APRN PCP - General 05/22/19 documented as of this encounter
--- OUTSIDE RECORDS SUMMARY | 2025-01-14 16:29 | XMS_ITS | Encounter Summary ---
Author Organization [facility] Address [address] [place] [address] Care Team Providers Care Cattle Rancher Name Role Phone Deep Pruitt APRN Primary Care Provider Reason for Visit * Reason Comments Medication Refill Encounter Details Date Type Department Care Team ([facility] st Contact Info) Description 11/11/2020 Refill [facility] [address] [place] [address] Deep Pruitt APRN [address] [place] [phone] Medication Refill Social History Tobacco Use [...] [facility] ional [facility] - Occupational Stress Questionnaire Answer [...] documented as of this encounter Care Teams Cattle Rancher Relationship Specialty Start Date End Date Deep Pruitt APRN PCP - General 05/22/19 documented as of this encounter
--- OUTSIDE RECORDS SUMMARY | 2025-01-14 16:29 | XMS_ITS | Encounter Summary ---
Author Organization [facility] [employer] [facility] and [facility] Address [address] [place] [phone] Care Team Providers Care Rn Child Name Role Phone Deep Pruitt APRN Primary Care Provider [phone] Encounter Details Date Type Department Care Team (Late st Contact Info) Description 08/05/[address] [facility] [address] [place] [address] Carolyn Marin MD [address] [place] [phone] Essential hypertension Social History Tobacco Use [...] Date Recorded PHQ-2 Total Score 4 07/13/2021 [facility] [...] as of this encounter Care Teams Rn Child Relationship Specialty Start Date End Date Deep Pruitt APRN PCP - General 05/22/19 documented as of this encounter
== END 2025-01-14 13:47 | disposition home or self-care (01) ==
LOC: HO.HHCX 13:46
PROVIDERS: Visit Provider Internal Medicine
DX: M54.50 Low back pain, unspecified (principal); M25.552 Pain in left hip; M25.561 Pain in right knee
CPT/HCPCS: 72100; 73502; 73564

== ENCOUNTER → 2025-01-14 13:47 | Outpatient (BNV) | payer MEDICAID, SELFPAY | PROVIDERS: Visit Provider Radiology Diagnostic Radiology | DX: M25.561 Pain in right knee (principal); M51.360 Other intervertebral disc degeneration, lumbar region with discogenic back pain only; M25.552 Pain in left hip; W19.XXXA Unspecified fall, initial encounter | CPT/HCPCS: 72100; 73502; 73564 ==

== ENCOUNTER → 2025-02-05 23:59 | Outpatient (BNV) | payer MEDICAID, SELFPAY | PROVIDERS: PCP Student in an Organized Health Care Education/Training Program; Visit Provider Internal Medicine Nephrology | DX: N18.6 End stage renal disease (principal) | CPT/HCPCS: 90961 ==

== ENCOUNTER 2025-02-25 14:18 | Emergency (ER) | payer MEDICAID, SELFPAY ==
--- NOTE | ~2025-02-25 | CT_ITS ---
CLINICAL HISTORY: right flank pain, renal colic? CT abdomen and pelvis without contrast Comparison: CT/REG/SR - CT ABDOMEN PELVIS WO IV CON - 06/22/23 16:28 EST Findings: Esophageal mural thickening possibly related to degree of underdistention. Ill-defined patchy ground-glass nodular consolidations in the ghox-qggemvj-dqhf-right lungs. Tiny calcified granuloma splenic dome. Gynecomastia. Coronary artery calcifications. Cholelithiasis noted, without significant wall thickening or pericholecystic stranding. Bile ducts are unremarkable. Hepatomegaly. Nonspecific thickening of the adrenal glands, left more than right. Bilateral perinephric stranding, nonspecific. No urolithiasis or hydronephrosis. Circumferential bladder wall thickening. Possible tiny small hemorrhagic 3 mm renal cyst right upper pole kidney. Mild central distal small bowel mural thickening with air-fluid levels, may reflect enteritis/ileus, caliber measures 3.2 cm. Diffuse skin thickening along the anterior abdominal wall subcutaneous edema may reflect panniculitis. Fat containing inguinal hernias. Prominent inguinal nodes, may be reactive. Scattered colonic diverticulosis without diverticulitis or colitis. Normal appendix. The bones are intact. Diffuse atheromatous plaque disease throughout the aorta and branch vessels, without aneurysmal dilatation. IMPRESSION: 1. Ill-defined patchy ground-glass nodular consolidations in the dzka-mctnzqf-rerd-right lungs. Correlation for pneumonia advised. 2. Circumferential bladder wall thickening may be related to degree of underdistention or mild cystitis. 3. Suspect distal mild small bowel ileus/enteritis. 4. Additional findings as described. This document has been electronically signed by: Cristino Ho MD on 02/25/2025 22:40:16
--- OUTSIDE RECORDS SUMMARY | 2025-02-25 13:00 | XMS_ITS | Encounter Summary ---
Author Organization [employer] Address [address] [facility] [address] [place] [address] Care Team Providers Care Plastic Parts Fabricator Name Role Phone Katrin Santoyo MD Primary Care Pro vider Edison Vieira MD Unavailable [phone] Joe Devi MD Unavailable [phone] Chuy Mcmanus MD Unavailable Sveta Lazaro RN Unavailable [phone] Leslie Kline Unavailable Reason for Visit * Reason Comments right upper quadrant pain Encounter Details Date Type Department Care Team (Late st Contact Info) Description 02/25/2025 1:00 PM EDT Office Visit [facility] [address] [place] [address] [phone] Vivian Hoyt MD [address] [place], [place] [phone] RUQ pain (Primary Dx) Social History Tobacco Use Types Packs/Day Years Used Date Smoking Tobacco: Never Passive Smoke Exposure: Never Smokeless Tobacco: Never Alcohol Use Standard Drinks/Week Comments Never 0 (1 standard drink = 0.6 oz pur e alcohol) Depression Answer Date Recorded Patient Health Questionnaire-9 Score 18 02/18/2025 Patient Health Questionnaire-9 Score 18 02/18/2025 Last PHQ-9: Questionnaire Data Not on file 1 Housing Stability Answer Date Recorded What is [...] Answer Date Recorded Patient Health Questionnaire-2 Score 3 02/18/2025 Internet Access Answer Date Recorded Internet Access [...] Sign Reading Time Taken Comments Blood Pressure 148/87 02/25/2025 12:59 PM EDT Pulse 78 02/25/2025 12:59 PM EDT Temperature 35.8 C (96.4 F) 02/25/2025 12:59 PM EDT Respiratory Rate 20 02/25/2025 12:59 PM EDT Oxygen Saturation 98% 02/25/2025 12:59 PM EDT Inhaled Oxygen Concentration - - Weight 102 kg (224 lb 6.4 oz) 02/25/2025 12:59 P M EDT Height 172.7 cm (5' 8 ) 02/25/2025 12:59 PM EDT Body Mass Index 34.12 02/25/2025 12:59 PM EDT documented in this encounter Progress Notes * Vivian Hoyt MD - 02/25/2025 1:00 PM EDT Subjective Patient ID: Darrel Cortes is a 54 y.o. male with past medical history ESRD on dialysis, cholelithiasis, history of choric pancreatitis, type 2 diabetes, chornic respiratory failure with hypoxia who presents to walk in clinic for right upper quadrant pain. - Onset approximately one week prior to visit - Pain described as occurring with breathing and movement -Feels it may be similar to history of pancreatitis - Pain present when lying down - No worsening of pain after eating - Denies cough or fever 03/30/2021 CT ABDOMEN W WO IV CONTRAST HISTORY: LUQ abdominal pain, elevated lipase Liver: Diffuse steatosis. Gallbladder and bile ducts: There are gallstones in the gallbladder with no evidence of acute cholecystitis. Review of Systems Objective Visit Vitals BP (!) 148/87 (BP Location: Left arm, Patient Position: Sitting, BP Cuff Size: Adult) Pulse 78 Temp 96.4 ??F (35.8 ??C) (Oral) Resp 20 Body mass index is 34.12 kg/m??. Physical Exam Constitutional: Appearance: Normal appearance. Comments: Comfortable until lying down then winces. Cardiovascular: Rate and Rhythm: Normal rate and regular rhythm. Heart sounds: Normal heart sounds. Pulmonary: Effort: Pulmonary effort is normal. Breath sounds: Normal breath sounds. Abdominal: General: There is no distension. Palpations: Abdomen is soft. Tenderness: There is abdominal tenderness. There is no guarding or rebound. Hernia: No hernia is present. Comments: Pain with palpation in RUQ moderate, and epigastric area mild. Musculoskeletal: Cervical back: Normal range of motion and neck supple. Lymphadenopathy: Cervical: No cervical adenopathy. Skin: General: Skin is warm and dry. Neurological: Mental Status: Mental status is at baseline. Psychiatric: Behavior: Behavior normal. Assessment & Plan RUQ pain Acute abdominal pain in 54 year old with ESRD on dialysis, type 2 diabetes, history pancreatitis multiple times, known gallstones with concern for possible biliary infection. Differential includes biliary tract infection, given history of gallstones and risk factors, pancreatitis, vs other. Infection not confirmed; further evaluation required. - Recommended urgent evaluation in the emergency department today for abdominal pain. Advised to obtain rapid imaging (ultrasound or CT scan) and laboratory tests to assess for infection. Instructed to explain symptoms and risk factors to emergency staff for expedited assessment. This note was drafted using Ambient (AI) technology. The patient/patient's guardian has been informed and has consented to the use of this technology: yes documented in this encounter Plan of Treatment Not on file documented as of this encounter Goals Goal Patient Goal Type Associated Problems Recent Progress Patient-Stated? Author Blood Pressure < 140/90 Blood Pressure 148/87(2024 12:59 PM EDT) No Piers-Gambl e, Eve, PharmD Hemoglobin A1c < 7 Result Component 7.1( 2:58 PM EDT) No Piers-Gambl e, Eve, PharmD documented as of this encounter Visit Diagnoses Diagnosis RUQ pain- Primary Abdominal pain, right upper quadrant documented in this encounter Additional Health Concerns Assessment Noted Time PHQ-9 Depression Total Score: 18 025 12:21 PM EDT documented as of this encounter Care Teams Plastic Parts Fabricator Relationship Specialty Start Date End Date Katrin Santoyo MD [address] [place] [id number] PCP - General Internal Medicine 12/13/22 Edison Vieira MD [address] [place] [phone] Pulmonary Disease 04/07/24 Joe Devi MD [address] [place] [address] 3[address] [place] [address] Gastroenterology 04/07/24 Chuy Mcmanus MD [address] [place] [address] [place] [address] Bariatrics 09/25/24 Sveta Lazaro, RN [address] [place] [id number] Registered Nurse Family Medicine 11/29/24 Leslie Kline 11/29/24 Carito Roche DNP [address] [facility], [address] [place] [address] Nephrology 04/07/24 [facility] 12/14/24 documented as of this encounter
[2025-02-25 15:18] VITALS: BP 126/80; PULSE 95; RESP 14; TEMP 36.3; O2SAT 95; BMI 33.5
--- NOTE | 2025-02-25 15:19 | ECG_ITS ---
Test Reason : pain Blood Pressure : */* mmHG Vent. Rate : 88 BPM Atrial Rate : 88 BPM P-R Int : 130 ms QRS Dur : 72 ms QT Int : 364 ms P-R-T Axes : 56 -20 37 degrees QTcB Int : 440 ms Normal sinus rhythm Normal ECG When compared with ECG of 20-Mar-2024 11:05, No significant change was found Referred By: Michael Shay Electronically Signed By: CARMINE BARRAZA MD
--- NOTE | 2025-02-25 15:19 | ED.GENADULT ---
HPI - General Adult General Chief complaint: Abdominal Pain Stated complaint: abd pain, sent from walk-in Time Seen by Provider: 02/25/25 20:51 Source: patient Limitations: no limitations and language barrier History of Present Illness ED Provider: Yuridia Godfrey PA-C HPI narrative: 54-year-old male with a history of hypertension, diabetes, chronic kidney disease, with subsequent development of end-stage renal disease now on dialysis, chronic pain, schizoaffective disorder, presents from urgent care to rule out pancreatitis. Patient states he developed right-sided flank pain today. Pain worse with movement. Denies new activity or heavy lifting that could have precipitated his symptoms. Denies history of kidney stones, dysuria, hematuria, nausea vomiting or fever. Patient denies left upper abdominal discomfort. Related Data Home Medications ?Medication ?Instructions ?Recorded ?Confirmed blood-glucose,fish receiver,cont 11/09/22 12/23/24 (Dexcom G7 End Worker) carvedilol 25 mg tablet 25 mg PO BID 11/09/22 12/23/24 pantoprazole 40 mg tablet,delayed 40 mg PO DAILY 11/09/22 12/23/24 release trazodone 150 mg tablet 150 mg PO BEDTIME PRN Sleep 11/09/22 12/23/24 acetaminophen 500 mg tablet 1,000 mg PO Q6H PRN fever 06/08/23 12/23/24 albuterol sulfate 2.5 mg/3 mL 2.5 mg inhalation Q6H PRN wheezing 06/08/23 12/23/24 (0.083 %) solution for nebulization aspirin 81 mg chewable tablet 1 tab PO DAILY 06/08/23 12/23/24 atorvastatin 80 mg tablet 80 mg PO DAILY 06/08/23 12/23/24 calcium carbonate (Calcium Antacid) 400 mg PO DAILY 06/08/23 12/23/24 carboxymethylcellulose sodium 0.5 1 drp ophthalmic (eye) NEEDED 06/08/23 12/23/24 % eye drops in a dropperette dry eyes (Lubricant Eye Drops) clonazepam 0.5 mg tablet 0.5 mg PO TID 06/08/23 12/23/24 divalproex 500 mg tablet,extended 1,000 mg PO BEDTIME 06/08/23 12/23/24 release 24 hr (Depakote ER) tiotropium bromide 1.25 2 puff inhalation DAILY 06/08/23 12/23/24 mcg/actuation mist for inhalation (Spiriva Respimat) ziprasidone HCl 80 mg capsule 80 mg PO BEDTIME 06/08/23 12/23/24 (Geodon) blood-glucose sensor (Dexcom G7 #1 ea 07/28/23 12/23/24 Sensor device) pen needle, diabetic 31 gauge x #1,200 ea 07/28/23 12/23/24 3/16 (BD Ultra-Fine Mini Pen Needle) ketotifen fumarate 0.025 % (0.035 1 drp ophthalmic (eye) BID PRN 03/20/24 12/23/24 %) eye drops (Eye Itch Relief) allergies insulin regular hum U-500 conc 500 135 unit subcut BEDTIME 04/24/24 12/23/24 unit/mL(3 mL) subcut pen (Humulin R U-500 (Conc) Insulin Kwikpen) omega-3 300 mg-dha 120 mg-epa 180 2 cap PO BID 06/21/24 12/23/24 mg-fish oil 1,000 mg capsule amlodipine 5 mg tablet 5 mg PO DAILY 10/09/24 12/23/24 diphenhydramine HCl 25 mg tablet 25 mg PO TID PRN Allergic Reaction 10/09/24 12/23/24 (Carey-Dryl) ezetimibe 10 mg tablet 10 mg PO DAILY 10/09/24 12/23/24 febuxostat 40 mg tablet 40 mg PO DAILY 10/09/24 12/23/24 gabapentin 100 mg capsule 100 mg PO BEDTIME 10/09/24 12/23/24 tramadol 50 mg tablet 50 mg PO Q12H PRN severe pain 10/09/24 12/23/24 prednisone 20 mg tablet 20 mg PO DAILY 12/19/24 12/23/24 Previous Rx's ?Medication ?Instructions ?Recorded empagliflozin 10 mg tablet 10 mg PO DAILY #30 tabs 09/25/24 (Jardiance) cholecalciferol (vitamin D3) 125 125 mcg PO DAILY #30 caps 10/09/24 mcg (5,000 unit) capsule furosemide 40 mg tablet 40 mg PO DAILY #30 tabs 10/09/24 sodium polystyrene sulfonate 15 30 g PO .COMPLEX #453.6 grams 10/09/24 gram oral powder calcitriol 0.25 mcg capsule 0.25 mcg PO 3XW #14 caps 10/23/24 cyclobenzaprine 10 mg tablet 10 mg PO TID PRN muscle spasm #10 11/27/24 tabs tramadol 50 mg tablet 50 mg PO BID PRN pain #6 tabs 11/27/24 azithromycin 250 mg tablet 250 mg PO DAILY 4 days #4 tabs 02/25/25 cefuroxime axetil 500 mg tablet 500 mg PO Q12H #19 tabs 02/25/25 Allergies Allergy/AdvReac Type Severity Reaction Status Date / Time Penicillins (PENICILLINS) Allergy Intermediate RASH, Verified 02/25/25 15:22 DIFFICULTY BREATHING Review of Systems Review of Systems: Yes all other systems are reviewed and are negative Constitutional: Constitutional: Denies fatigue and Denies fever(s) Cardiovascular: Cardiovascular: Denies chest pain Gastrointestinal: Gastrointestinal: Denies abdominal pain, Denies nausea and Denies vomiting Genitourinary: Genitourinary: Denies hematuria, Denies dysuria and Reports flank pain Musculoskeletal: Musculoskeletal: Denies back pain Endocrine: Endocrine: Denies fatigue [facility] Past Medical History Attestation statement: The following information was validated with the patient. Medical History HTN (hypertension) Leukocytosis Memory loss Obesity Idiopathic gout of multiple sites GERD (gastroesophageal reflux disease) Hypertensive chronic kidney disease Secondary hyperparathyroidism, renal Sleep apnea Type 2 diabetes mellitus Schizoaffective disorder Chronic pain syndrome Diabetic polyneuropathy Gout Surgical History History of esophagogastroduodenoscopy (EGD) H/O colonoscopy Family History Family History Father Cancer Diabetes Mother Cancer Diabetes Colon cancer Family/Other Cancer Diabetes Social History Social History Household Members: Spouse Housing: House Are you a primary healthcare facility administrator to a significant other at home: No Do you presently have visiting nurse or other home services: No Alcohol intake: never Patient Tobacco Use Status: Never used Tobacco service: No Physical Exam ED Vital Signs: Vital Signs - 24 hr 02/25/25 15:18 02/25/25 19:36 Temperature 97.4 F 98.7 F Pulse Rate 95 89 Respiratory Rate 14 16 Blood Pressure 126/80 153/65 H Pulse Oximetry 95 97 Oxygen Delivery Method Room Air Room Air BMI result Body Mass Index 33.5 Const Other: Alert well-appearing Orientation/consciousness: patient oriented x3 Resp Effort & Inspection: normal respiratory effort Cardio Other: Normal peripheral perfusion GI Other: Soft, nontender, no guarding General: Yes no CVA tenderness Back/Spine/Pelvis Back: no CVA tenderness Skin Other: Warm dry no rash Neuro General: patient oriented x3, gait normal, no focal motor deficits and CN's II-XI intact bilaterally Psych Other: Very pleasant Course Course Course Narrative: RME, this is a rapid medical exam performed by Ayad Shay please refer to primary provider for complete H&P- 54-year-old male presents for evaluation of the abdominal pain under his right rib. He reports in his doctor told him he has pancreatitis and to be evaluated. The patient is on dialysis for end-stage renal disease. History of hypertension as well. Plan for labs, urinalysis Reevaluation(s) Reevaluation #1: Patient found to have developing pneumonia, he states he has had recurrent pneumonia, we will treat accordingly. Medications Administered Discontinued Medications Generic Name Dose Route Start Last Admin Trade Name Freq PRN Reason Stop Dose Admin Acetaminophen 975 mg 02/25/25 21:55 02/25/25 22:16 Acetaminophen 325 Mg Tablet PO 02/25/25 21:56 975 mg ONCE ONE Administration Azithromycin 500 mg 02/25/25 23:12 02/25/25 23:32 Azithromycin 500 Mg Tablet PO 02/25/25 23:13 500 mg ONCE ONE Administration Cefuroxime Axetil 500 mg 02/25/25 23:12 02/25/25 23:32 Cefuroxime Axetil 500 Mg Tablet PO 02/25/25 23:13 500 mg ONCE ONE Administration Medical Decision Making Medical Decision Making [facility] Narrative: 54-year-old male with a history of hypertension, diabetes, chronic kidney disease, with subsequent development of end-stage renal disease now on dialysis, chronic pain, schizoaffective disorder, presents from urgent care to rule out pancreatitis. Patient states he developed right-sided flank pain today. Pain worse with movement. Denies new activity or heavy lifting that could have precipitated his symptoms. Denies history of kidney stones, dysuria, hematuria, nausea vomiting or fever. Patient denies left upper abdominal discomfort. Problem: Diabetes, end-stage renal disease History: Per patient I have considered the following differential diagnoses: UTI, pyelonephritis, renal colic, musculoskeletal strain Plan: The patient does not have pancreatitis, he has no left upper abdominal discomfort and he is not actively vomiting. His pain is over the right flank, it is seemingly musculoskeletal in nature, however he has no mechanism of injury. We will obtain a dry scan to rule out obstructing stone. Doubtful to be pyelonephritis he has no CVA tenderness, and he is not febrile. He still makes urine, we will collect a urine sample, the remainder of his screening labs have been completed, he does have a leukocytosis. His creatinine is at baseline. Unclear why they ordered troponin. We will obtain a delta. This clearly is not ACS. I have independently reviewed the following tests: Labs: Slight leukocytosis, not anemic, no left shift, no electrolyte abnormality, creatinine 7.17, on troponin 21.9, delta troponin 21.6 CT abdomen and pelvis:MPRESSION: 1. Ill-defined patchy ground-glass nodular consolidations in the svic-eyugwxg-bgnm-right lungs. Correlation for pneumonia advised. 2. Circumferential bladder wall thickening may be related to degree of underdistention or mild cystitis. 3. Suspect distal mild small bowel ileus/enteritis. 4. Additional findings as described. Differential Diagnosis Differential Diagnoses: The differential diagnosis associated with the presentation includes See medical decision-making Admission/Observation Consideration of admission/observation: Escalation of care including admission/observation considered Not applicable Lab Data MDM Lab Attestation statement: I reviewed the patient's lab results. 02/25/25 16:27 02/25/25 16:27 Labs: Lab Results 02/25/25 02/25/25 02/25/25 Range/Units 16:27 20:15 21:27 WBC 14.5 H (4.8-10.8) X10*3/uL RBC 4.12 L (4.60-5.80) X10*6/uL Hgb 11.9 L (14.0-18.0) g/dl Hct 37.2 L (42.0-52.0) % MCV 90.3 (80.0-98.0) fL MCH 28.9 (27.0-33.0) pg MCHC 32.0 (31.0-36.0) g/dl RDW 14.4 (11.0-16.0) % Plt Count 339 (160-400) X10*3/uL MPV 11.7 (9.4-12.4) fL Immature Gran % (Auto) 0.3 (0.0-0.4) % Neut % (Auto) 65.0 (45-73) % Lymph % (Auto) 16.8 L (20-40) % [place] % (Auto) 9.9 (2-11) % Eos % (Auto) 7.4 H (0-4) % Baso % (Auto) 0.6 (0-2) % Lymph # (Auto) 2.4 (1.2-4.9) X10*3/uL [place] # (Auto) 1.4 H (0.1-1.2) X10*3/uL Eos # (Auto) 1.1 H (0.0-0.4) X10*3/uL Baso # (Auto) 0.1 (0.0-0.2) X10*3/uL Abs Immat Gran (auto) 0.05 H (0.00-0.03) X10*3/uL Absolute Neuts (auto) 9.4 H (2.0-8.3) x10*3/uL Absolute Nucleated RBC 0.000 (0.0-0.012) X10*3/uL Nucleated RBC % (auto) 0.0 (0.0-0.2) /100WBC Sodium 139 (135-145) mmol/L Potassium 4.6 (3.3-5.1) mmol/L Chloride 105 (96-108) mmol/L Carbon Dioxide 24 (22-29) mmol/L Anion Gap 15 (12-20) BUN 40 H (9-16) mg/dL Creatinine 7.17 H* (0.5-1.4) mg/dL Estim Creat Clear Calc 13.5 Estimated GFR 8 Random Glucose 180 H (60-115) mg/dL Calcium 9.6 D (8.4-10.2) mg/dL Total Bilirubin 0.3 (0.0-1.0) mg/dL AST 18 (5-37) U/L ALT 12 (0-40) U/L Alkaline Phosphatase 143 H (39-117) U/L Troponin I High Sens 21.9 D 21.6 (<3.5-35.0) ng/L Total Protein 7.3 (6.5-8.0) g/dL Albumin 3.9 (3.5-5.0) g/dL Lipase 67 (8-78) U/L Urine Color Yellow Urine Appearance Clear Urine pH 7.0 (5.0-9.0) Ur Specific [place] 1.020 (1.005-1.025) Urine Protein >=1000 (4+) H (Neg-Trace) mg/dL Urine Glucose (UA) >=1000 H (Negative) mg/dL Urine Ketones Negative (Negative) mg/dL Urine Blood Trace H (Negative) Urine Nitrite Negative (Negative) Ur Leukocyte Esterase Negative (Negative) Urine RBC 0-2 (0-2) /HPF Urine WBC 0-5 (0-5) /HPF Ur Squamous Epith Cells 0-2 (0-2) /HPF Urine Bacteria None Seen (None Seen) Hyaline Casts 0-2 (0-2) /LPF Ethyl Alcohol < 10 mg/dL Radiology Impression Discussion of test interpretation with radiology: I have reviewed the radiologist's reading. Discharge Plan Discharge Clinical Impression: Pneumonia Patient Disposition: Home, Self-Care Instructions: Community Acquired Pneumonia (ED) Additional Instructions: You were found to have evidence of early pneumonia. See home care instructions. Take both antibiotics as directed. The remainder of your screening labs were at your baseline for you. Follow up with your primary care provider as needed Prescriptions: New azithromycin 250 mg tablet 250 mg PO DAILY 4 Days Qty: 4 0RF Rx Instructions: start on day 2 of therapy cefuroxime axetil 500 mg tablet 500 mg PO Q12H Qty: 19 0RF No Action Jardiance 10 mg tablet 10 mg PO DAILY Qty: 30 2RF furosemide 40 mg tablet 40 mg PO DAILY Qty: 30 4RF cholecalciferol (vitamin D3) 125 mcg (5,000 unit) capsule 125 mcg PO DAILY Qty: 30 4RF ziprasidone HCl [Geodon] 80 mg capsule 80 mg PO BEDTIME atorvastatin 80 mg tablet 80 mg PO DAILY albuterol sulfate 2.5 mg /3 mL (0.083 %) solution for nebulization 2.5 mg inhalation Q6H PRN (Reason: wheezing) clonazepam 0.5 mg tablet 0.5 mg PO TID acetaminophen 500 mg tablet 1,000 mg PO Q6H PRN (Reason: fever) divalproex [Depakote ER] 500 mg tablet extended release 24 hr 1,000 mg PO BEDTIME calcium carbonate [Calcium Antacid] 200 mg calcium (500 mg) tablet,chewable 400 mg PO DAILY carboxymethylcellulose sodium [Lubricant Eye Drops] 0.5 % dropperette 1 drp ophthalmic (eye) NEEDED Spiriva Respimat 1.25 mcg/actuation mist 2 puff INHALATION DAILY aspirin 81 mg tablet,chewable 1 tab PO DAILY Humulin R U-500 (Conc) Kwikpen 500 unit/mL (3 mL) insulin pen 135 unit subcut BEDTIME omega 9-pmd-ffa-fish oil 300 mg (120 mg- 180mg)-1,000 mg capsule 2 cap PO BID tramadol 50 mg tablet 50 mg PO Q12H PRN (Reason: severe pain) ketotifen fumarate [Eye Itch Relief] 0.025 % (0.035 %) drops 1 drp ophthalmic (eye) BID PRN (Reason: allergies) cyclobenzaprine 10 mg tablet 10 mg PO TID PRN (Reason: muscle spasm) Qty: 10 0RF tramadol 50 mg tablet 50 mg PO BID PRN (Reason: pain) Qty: 6 0RF amlodipine 5 mg tablet 5 mg PO DAILY ezetimibe 10 mg tablet 10 mg PO DAILY febuxostat 40 mg tablet 40 mg PO DAILY diphenhydramine HCl [Carey-Dryl] 25 mg tablet 25 mg PO TID PRN (Reason: Allergic Reaction) sodium polystyrene sulfonate 15 gram Powder 30 g PO .COMPLEX Qty: 453.6 3RF Rx Instructions: 30 grams orally once a week; gabapentin 100 mg capsule 100 mg PO BEDTIME calcitriol 0.25 mcg capsule 0.25 mcg PO 3XW Qty: 14 3RF trazodone 150 mg tablet 150 mg PO BEDTIME PRN (Reason: Sleep) pantoprazole 40 mg tablet,delayed release (DR/EC) 40 mg PO DAILY carvedilol 25 mg tablet 25 mg PO BID Rx Instructions: must administer with a meal/food (DME) Dexcom G7 End Worker Misc See Rx Instructions .Route Rx Instructions: As directed (DME) Dexcom G7 Sensor Device See Rx Instructions .ROUTE QWEEK Qty: 1 Rx Instructions: As directed (DME) pen needle, diabetic [BD Ultra-Fine Mini Pen Needle] 31 gauge x 3/16 needle See Rx Instructions .ROUTE DIRECTED Qty: 1200 Rx Instructions: As directed prednisone 20 mg tablet 20 mg PO DAILY Interventions: ED Discharge Assessment Last Done: 02/26/25 00:00 Discharge Date/Time: 02/26/25 00:27 Print Language: Bolivian
[2025-02-25 16:39] LABS: MANUAL DIFF FLAG NO
[2025-02-25 16:45] LABS: Hematocrit 37.2 % (42.0-52.0); Hemoglobin 11.9 g/dl (14.0-18.0); Imm Gran Abs Auto 0.05 X10*3/uL (0.00-0.03); Imm Gran Pct Auto 0.3 % (0.0-0.4); Lymphocytes Absolute Auto 2.4 X10*3/uL (1.2-4.9); Mean Corpuscular HGB Conc 32.0 g/dl (31.0-36.0); Mean Corpuscular Hemoglobin 28.9 pg (27.0-33.0); Mean Corpuscular Volume 90.3 fL (80.0-98.0); NRBC Abs Auto 0.000 X10*3/uL (0.0-0.012); NRBC Pct Auto 0.0 /100WBC (0.0-0.2); Platelet Count 339 X10*3/uL (160-400); Red Blood Count 4.12 X10*6/uL (4.60-5.80); White Blood Count 14.5 X10*3/uL (4.8-10.8)
[2025-02-25 17:01] LABS: Troponin-I High Sensitivity 21.9 ng/L (<3.5-35.0)
[2025-02-25 17:06] LABS: Alanine Aminotransferase 12 U/L (0-40); Albumin Level 3.9 g/dL (3.5-5.0); Alkaline Phosphatase 143 U/L (39-117); Anion Gap 15 (12-20); Aspartate Amino Transferase 18 U/L (5-37); Blood Urea Nitrogen 40 mg/dL (9-16); Calcium 9.6 mg/dL (8.4-10.2); Carbon Dioxide 24 mmol/L (22-29); Chloride 105 mmol/L (96-108); Creatinine Clr Calc Pharmacy 13.5; Estimated Glomerular Filt Rate 8; Lipase 67 U/L (8-78); Potassium 4.6 mmol/L (3.3-5.1); Sodium 139 mmol/L (135-145); Total Protein 7.3 g/dL (6.5-8.0)
[2025-02-25 19:36] VITALS: BP 153/65; PULSE 89; RESP 16; TEMP 37.1; O2SAT 97
[2025-02-25 20:23] LABS: Appearance Urine Clear; Glucose Urine UA >=1000 mg/dL (Negative); PH 7.0 (5.0-9.0); Specific Gravity - Urine 1.020 (1.005-1.025); UMIC TRIGGER UACC YES
--- OUTSIDE RECORDS SUMMARY | 2025-02-25 21:03 | XMS_ITS | Encounter Summary ---
Author Organization [facility] Address [address] [place] [address] Care Team Providers Care Control Supervisor Name Role Phone Deep Pruitt APRN Primary Care Provider Reason for Visit * Reason Comments Forms Encounter Details Date Type Department Care Team ([facility] Contact Info) Description 06/16/2020 Telephone [facility] [address] [place] [address] Deep Pruitt APRN [address] [place] [phone] Forms Social History Tobacco Use Types [...] update on handicap forms for pt. Call [phone] documented in this encounter Plan of Treatment [...] documented as of this encounter Care Teams Control Supervisor Relationship Specialty Start Date End Date Deep Pruitt APRN PCP - General 05/22/19 documented as of this encounter
--- OUTSIDE RECORDS SUMMARY | 2025-02-25 21:03 | XMS_ITS | Encounter Summary ---
Author Organization [employer] Address [address] [facility] 7t [place] [address] Care Team Providers Care Engineering Designer Name Role Phone Katrin Santoyo MD Primary Care Pro vider Edison Vieira MD Unavailable [phone] Joe Devi MD Unavailable [phone] Chuy Mcmanus MD Unavailable Sveta Lazaro RN Unavailable [phone] Leslie Kline Unavailable Reason for Visit * Reason Onset Date Comments Durable Medical Equipment 11/08/2023 Encounter Details Date Type Department Care Team (Late st Contact Info) Description 11/08/2023 Telephone [facility] [address] [place], [place] [phone] Katrin Santoyo MD [address] [place], [place] [phone] Durable Medical Equipment Social History Tobacco Use [...] the past 12 months, has t he [employer], gas, oil or water [employer] threatened to shut off services in your [...] 11/10/2023 11:01 AM EDT Call placed to [employer] spoke to Zhen who was informed on 10/31/23 we faxed over RX with the qty on it. He reports that what they need is the letter of medical necessity not the Rx. He reports he will fax it to [employer] at [phone] and once signed and faxed back it will be all set. Awaiting do cument. * Telephone Encounter - Mauricio Taylor - 11/08/2023 3:57 PM EDT Tc from Tanya at [employer] calling to report the DME is missing the quantity and the description please sign and refax documented in this encounter Plan of Treatment Not on file documented as of this encounter Goals Goal Patient Goal Type Associated Problems Recent Progress Patient-Stated? Author Blood Pressure < 140/90 Blood Pressure 148/87(2024 12:59 PM EDT) No Nem[employer]-Eve Grier, PharmD Hemoglobin A1c < 7 Result Component 7.1( 2:58 PM EDT) No [employer]-Hul Eve carballo, PharmD documented as of this encounter Visit Diagnoses Not on filedocumented in this encounter Additional Health Concerns Assessment Noted Time PHQ-9 Depression Total Score: 4 10/31/19 10:32 AM EDT documented as of this encounter Care Teams Engineering Designer Relationship Specialty Start Date End Date Katrin Santoyo MD [address] [place] [address] PCP - General Internal Medicine 12/13/22 Edison Vieira MD [address] [place] [address] Pulmonary Disease 04/07/24 Joe Devi MD [address] [place] [address] 3rd [place] [address] Gastroenterology 04/07/24 Chuy Mcmanus MD [address] [place] [address] [place] [address] Bariatrics 09/25/24 Sveta Lazaro RN [address] [place] [address] Registered Nurse Family Medicine 11/29/24 Leslie Kline 11/29/24 Carito Roche DNP [address] [facility], [address] [place] [address] Nephrology 04/07/24 [employer] 04/11/24 12/18/24 [facility] 12/14/24 documented as of this encounter
--- OUTSIDE RECORDS SUMMARY | 2025-02-25 21:03 | XMS_ITS | Encounter Summary ---
Author Organization [facility] Address [address] [place] [address] Care Team Providers Care Production Control Expert Name Role Phone Deep Pruitt APRN Primary Care Provider Reason for Visit * Reason Comments Other Encounter Details Date Type Department Care Team ([facility] Contact Info) Description 05/19/2020 Telephone [facility] [address] [place] [address] Deep Pruitt APRN [address] [place] [address] Other Social History Tobacco Use [...] to his gout, call back number is [phone] documented in this encounter Plan of Treatment [...] of this encounter Care Teams Production Control Expert Relationship Specialty Start Date End Date Deep Pruitt APRN PCP - General 05/22/19 documented as of this encounter
--- OUTSIDE RECORDS SUMMARY | 2025-02-25 21:03 | XMS_ITS | Encounter Summary ---
Author Organization [facility] Address [address] [place] [address] Care Team Providers Care Cyber Engineer Name Role Phone Deep Pruitt APRN Primary Care Provider Reason for Visit * Reason Comments Medication Refill Encounter Details Date Type Department Care Team ([facility] st Contact Info) Description 06/30/2021 Refill [facility] [address] [place], [place] [phone] Deep Pruitt APRN [address] [place] [address] Medication Refill Social History Tobacco [...] with type 2 diabetes mellitus (HC Code) (HC CODE) documented in this encounter Additional Health Concerns Infection Onset Date Last Indicated Resolved Time COVID-19 09/29/2021 09/29/2021 10/19/2021 7:19 PM EDT Assessment Noted Time PHQ-9 Depression Total Score: 5 05/31/19 22 1:13 PM EST documented as of this encounter Care Teams Cyber Engineer Relationship Specialty Start Date End Date Deep Pruitt APRN PCP - General 05/22/19 documented as of this encounter
--- OUTSIDE RECORDS SUMMARY | 2025-02-25 21:03 | XMS_ITS | Encounter Summary ---
Author Organization [facility] Address [address] [place] [address] Care Team Providers Care Manager Respiratory Name Role Phone Sonal Deep Niko LOPEZ Primary Care Provider [phone] Reason for Visit * Reason Comments Medication Refill Encounter Details Date Type Department Care Team ([facility] st Contact Info) Description 05/10/2021 Refill [facility] [address] [place] [phone] Aliya Pond, [address] [address] Medication Refill Social History Tobacco [...] Score 0 04/21/2021 [facility] - Occupational [...] as of this encounter Care Teams Manager Respiratory Relationship Specialty Start Date End Date Deep Pruitt APRN PCP - General 05/22/19 documented as of this encounter
--- OUTSIDE RECORDS SUMMARY | 2025-02-25 21:03 | XMS_ITS | Encounter Summary ---
Author Organization [employer] Address [address] [facility] 7t [place] [address] Care Team Providers Care Theatrical Variety Agent Name Role Phone Katrin Santoyo MD Primary Care Pro vider Edison Vieira MD Unavailable [phone] Joe Devi MD Unavailable [phone] Chuy Mcmanus MD Unavailable Sveta Lazaro RN Unavailable [phone] Leslie Kline Unavailable Reason for Visit * Reason Comments Med Refill Encounter Details Date Type Department Care Team (Late st Contact Info) Description 02/11/2024 Refill [facility] [address] [place] [address] Moriah Herbert FNP [address] [place] [address] Chronic radicular lumbar pain Social History Tobacco [...] the past 12 months, has t he [place], gas, oil or water [employer] threatened to shut off services in your [...] Pressure 148/87(2024 12:59 PM EDT) No Piers-Gambl haris, Eve, PharmD Hemoglobin A1c < 7 Result Component 7.1( 2:58 PM EDT) No Piers-Gambl haris, Eve, PharmD documented as of this encounter Visit Diagnoses Diagnosis Chronic radicular lumbar pain documented in this encounter Additional Health Concerns Assessment Noted Time PHQ-9 Depression Total Score: 4 10/31/19 24 10:32 AM EDT documented as of this encounter Care Teams Theatrical Variety Agent Relationship Specialty Start Date End Date Katrin Santoyo MD [address] [place] [address] PCP - General Internal Medicine 12/13/22 Edison Vieira MD [address] [place] [address] Pulmonary Disease 04/07/24 Joe Devi MD [address] 3rd [place] [address] Gastroenterology 04/07/24 Chuy Mcmanus MD [address] [place] [address] [place] [address] Bariatrics 09/25/24 Sveta Lazaro RN [address] [place] [address] Registered Nurse Family Medicine 11/29/24 Leslie Kline 11/29/24 Carito Roche DNP [address] [facility], [address] [place] [address] Nephrology 04/07/24 [employer] 04/11/24 12/18/24 [facility] 12/14/24 documented as of this encounter
--- OUTSIDE RECORDS SUMMARY | 2025-02-25 21:03 | XMS_ITS | Encounter Summary ---
Author Organization [facility] Address [address] [place] [address] Care Team Providers Care Home School Coordinator Name Role Phone Deep Pruitt APRN Primary Care Provider Reason for Visit * Reason Comments Medication Refill Encounter Details Date Type Department Care Team ([facility] st Contact Info) Description 06/07/2022 Refill [facility] [address] [place], [place] [phone] Deep Pruitt APRN [address] [place] [address] Medication Refill Social History Tobacco [...] your living situation today? I have a [facility] place to live 05/19/2022 Sex [...] as of this encounter Care Teams Home School Coordinator Relationship Specialty Start Date End Date Deep Pruitt APRN PCP - General 05/22/19 documented as of this encounter
--- OUTSIDE RECORDS SUMMARY | 2025-02-25 21:03 | XMS_ITS | Encounter Summary ---
Author Organization [facility] Address [address] [place] [address] Care Team Providers Care Container Filler Name Role Phone Deep Pruitt APRN Primary Care Provider Reason for Visit * Reason Comments Medication Refill Encounter Details Date Type Department Care Team ([facility] st Contact Info) Description 06/19/2020 Refill [facility] [address] [place] [address] Deep Pruitt APRN [address] [place] [phone] Medication Refill Social History Tobacco Use [...] Answer Date Recorded PHQ-2 Score 0 03/13/2020 [facility] of Occupat ional Health [...] documented as of this encounter Care Teams Container Filler Relationship Specialty Start Date End Date Deep Pruitt APRN PCP - General 05/22/19 documented as of this encounter
--- OUTSIDE RECORDS SUMMARY | 2025-02-25 21:03 | XMS_ITS | Encounter Summary ---
Author Organization [facility] Address [address] [place] [address] Care Team Providers Care Training Specialist Name Role Phone Deep Pruitt APRN Primary Care Provider Encounter Details Date Type Department Care Team ([facility] st Contact Info) Description 06/25/2021 Telephone [facility] [address] [place] [address] Deep Pruitt APRN [address] [place], [...] Date Recorded PHQ-2 Total Score 3 05/31/2021 [facility] of Occupat ional Health [...] as of this encounter Care Teams Training Specialist Relationship Specialty Start Date End Date Deep Pruitt APRN PCP - General 05/22/19 documented as of this encounter
--- OUTSIDE RECORDS SUMMARY | 2025-02-25 21:03 | XMS_ITS | Encounter Summary ---
Author Organization [facility] Address [address] [place] [address] Care Team Providers Care Fancy Stitcher Name Role Phone Deep Pruitt JOHN Primary Care Provider Reason for Visit * Reason Comments Medication Refill Encounter Details Date Type Department Care Team (Late st Contact Info) Description 05/06/2021 Refill [facility] Podiatry at [address] [place] [phone] Arben Fountain, [employer]OL[employer] [address] [place] [address] Medication Refill Social History Tobacco Use [...] Date Recorded PHQ-2 Total Score 0 04/21/2021 [facility] - Occupational Stress Questionnaire [...] documented as of this encounter Care Teams Fancy Stitcher Relationship Specialty Start Date End Date Deep Pruitt APRN PCP - General 05/22/19 documented as of this encounter
--- OUTSIDE RECORDS SUMMARY | 2025-02-25 21:03 | XMS_ITS | Encounter Summary ---
Author Organization [facility] Address [address] [place] [address] Care Team Providers Care Grab Operator Name Role Phone Deep Pruitt APRN Primary Care Provider Reason for Visit * Reason Comments DME Encounter Details Date Type Department Care Team ([facility] st Contact Info) Description 05/04/2022 Documentation Sleep Medicine Program at [address] [place] [phone] Jarad De Leon MD [address] [place] [phone] Social History Tobacco Use Types Packs/Day [...] Date Recorded PHQ-2 Total Score 2 02/17/2022 [facility] of Occupat ional Health [...] documented as of this encounter Care Teams Grab Operator Relationship Specialty Start Date End Date Deep Pruitt APRN PCP - General 05/22/19 documented as of this encounter
--- OUTSIDE RECORDS SUMMARY | 2025-02-25 21:03 | XMS_ITS | Encounter Summary ---
Author Organization [facility] Address [address] [place] [address] Care Team Providers Care Container Packer Operator Name Role Phone Deep Pruitt APRN Primary Care Provider Reason for Visit * Reason Comments Medication Refill Encounter Details Date Type Department Care Team ([facility] st Contact Info) Description 06/19/2020 Refill [facility] [address] [place] [address] Deep Pruitt APRN [address] [place] [phone] Medication Refill Social History Tobacco Use [...] Answer Date Recorded PHQ-2 Score 0 03/13/2020 [facility] of Occupat [...] use of insulin (HC Code) (HC CODE) documented in this [...] as of this encounter Care Teams Container Packer Operator Relationship Specialty Start Date End Date Deep Pruitt APRN PCP - General 05/22/19 documented as of this encounter
--- OUTSIDE RECORDS SUMMARY | 2025-02-25 21:03 | XMS_ITS | Encounter Summary ---
Author Organization [facility] Address [address] [place] [address] Care Team Providers Care Spanish Tutor Name Role Phone Deep Pruitt JOHN Primary Care Provider Reason for Visit * Reason Comments Medication Refill Encounter Details Date Type Department Care Team (Late st Contact Info) Description 07/20/2020 Refill [facility] Podiatry at [address] [phone] Arben Fountain, NOLVIA [address] [place] [address] Medication Refill Social History Tobacco Use [...] documented as of this encounter Care Teams Spanish Tutor Relationship Specialty Start Date End Date Deep Pruitt APRN PCP - General 05/22/19 documented as of this encounter
--- OUTSIDE RECORDS SUMMARY | 2025-02-25 21:03 | XMS_ITS | Encounter Summary ---
Author Organization [facility] Address [address] [place] [address] Care Team Providers Care Consultant [employer]. Vice President [employer] (Ex ) Name Role Phone LuskDeep medina Niko LOPEZ Primary Care Provider Reason for Visit * Reason Comments Medication Refill Encounter Details Date Type Department Care Team ([facility] st Contact Info) Description 07/03/2020 Refill [facility] [address] [facility] [address] [place] [phone] Zena Hines PA [address] [place] [phone] Medication Refill Social History Tobacco Use [...] 07/07/2020 [facility] of Occupat ional Health [...] for Metformin received. Pt was engaging with [facility] and continues with PCP. Unclear [...] documented as of this encounter Care Teams Consultant [employer]. Vice President [employer] (Ex ) Relationship Specialty Start Date End Date Deep Pruitt APRN PCP - General 05/22/19 documented as of this encounter
--- OUTSIDE RECORDS SUMMARY | 2025-02-25 21:03 | XMS_ITS | Encounter Summary ---
Author Organization [facility] Address [address] [place] [address] Care Team Providers Care General Magistrate Name Role Phone Deep Pruitt APRN Primary Care Provider Reason for Visit * Reason Comments Other Encounter Details Date Type Department Care Team ([facility] Contact Info) Description 05/24/2022 Telephone [facility] [address] [place] [address] Deep Pruitt APRN [address] [place] [phone] Other Social History Tobacco Use Types [...] you attend chur ch or anglican services? More than 4 times per year [...] Date Recorded PHQ-2 Total Score 2 02/17/2022 [facility] - Occupational Stress Questionnaire Answer [...] living situation today? I have a [facility] place to live 05/19/2022 Sex and [...] AM EST Patient best call back number [phone]. Patient has an upcoming appt with his [...] as of this encounter Care Teams General Magistrate Relationship Specialty Start Date End Date Deep Pruitt APRN PCP - General 05/22/19 documented as of this encounter
--- OUTSIDE RECORDS SUMMARY | 2025-02-25 21:03 | XMS_ITS | Encounter Summary ---
Author Organization [facility] Address [address] [place] [address] Care Team Providers Care Clam Picker Name Role Phone Deep Pruitt APRN Primary Care Provider Reason for Visit * Reason Comments Medication Refill Encounter Details Date Type Department Care Team ([facility] st Contact Info) Description 05/27/2020 Telephone [facility] [address] [place] [address] Deep Pruitt APRN [address] [place] [address] Medication Refill Social History Tobacco [...] medications and request someone calls him at [phone] documented in this encounter Plan of Treatment [...] documented as of this encounter Care Teams Clam Picker Relationship Specialty Start Date End Date Deep Pruitt APRN PCP - General 05/22/19 documented as of this encounter
--- OUTSIDE RECORDS SUMMARY | 2025-02-25 21:03 | XMS_ITS | Encounter Summary ---
Author Organization [facility] Address [address] [place] [address] Care Team Providers Care Installer Technician Name Role Phone Deep Pruitt APRN Primary Care Provider Encounter Details Date Type Department Care Team (Late st Contact Info) Description 06/11/2021 Documentation [facility] [address] [facility], 2nd floor [facility], [address] [place], [place] [phone] Isha Brown APRN [address] [place] [address] Social History Tobacco Use Types [...] Date Recorded PHQ-2 Total Score 3 05/31/2021 [facility] of Occupat ional Health [...] documented as of this encounter Care Teams Installer Technician Relationship Specialty Start Date End Date Deep Pruitt APRN PCP - General 05/22/19 documented as of this encounter
--- OUTSIDE RECORDS SUMMARY | 2025-02-25 21:03 | XMS_ITS | Encounter Summary ---
Author Organization [facility] Address [address] [place] [address] Care Team Providers Care Electronic Console Display Operator Name Role Phone Deep Pruitt APRN Primary Care Provider Reason for Visit * Reason Comments Medication Refill Encounter Details Date Type Department Care Team ([facility] st Contact Info) Description 07/29/2020 Refill [facility] [address] [place], [place] [phone] Deep Pruitt, JOHN [address] [place] [phone] Medication Refill Social History Tobacco Use [...] Answer Date Recorded PHQ-2 Score 2 07/07/2020 [facility] of Occupat ional [facility] - Occupational Stress Questionnaire Answer [...] 2 diabetes mellitus (HC Code) (HC CODE) Essential hypertension, benign documented in this encounter [...] documented as of this encounter Care Teams Electronic Console Display Operator Relationship Specialty Start Date End Date Deep Pruitt APRN PCP - General 05/22/19 documented as of this encounter
--- OUTSIDE RECORDS SUMMARY | 2025-02-25 21:03 | XMS_ITS | Encounter Summary ---
Author Organization [facility] Address [address] [place] [address] Care Team Providers Care Crossword Puzzle Maker Name Role Phone Deep Pruitt APRN Primary Care Provider Reason for Visit * Reason Comments Medication Refill Encounter Details Date Type Department Care Team ([facility] st Contact Info) Description 07/10/2020 Refill [facility] [address] [place] [address] Deep Pruitt APRN [address] [place] [phone] Medication Refill Social History Tobacco Use [...] 2 07/07/2020 [facility] of Occupat ional [facility] - Occupational Stress Questionnaire Answer Date [...] documented as of this encounter Care Teams Crossword Puzzle Maker Relationship Specialty Start Date End Date Deep Pruitt APRN PCP - General 05/22/19 documented as of this encounter
--- OUTSIDE RECORDS SUMMARY | 2025-02-25 21:03 | XMS_ITS | Encounter Summary ---
Author Organization [facility] Address [address] [place] [address] Care Team Providers Care Aging Department Supervisor Name Role Phone Deep Pruitt JOHN Primary Care Provider Reason for Visit * Reason Comments Medication Refill Encounter Details Date Type Department Care Team (Late st Contact Info) Description 05/12/2021 Refill [facility] Podiatry at [address] [place] [phone] Arben Fountain, NOLVIA [address] [place] [address] Medication Refill Social History Tobacco Use [...] Date Recorded PHQ-2 Total Score 0 04/21/2021 [facility] - Occupational Stress Questionnaire Answer Date [...] documented as of this encounter Care Teams Aging Department Supervisor Relationship Specialty Start Date End Date Deep Pruitt APRN PCP - General 05/22/19 documented as of this encounter
--- OUTSIDE RECORDS SUMMARY | 2025-02-25 21:03 | XMS_ITS | Encounter Summary ---
Author Organization [facility] Address [address] [place] [address] Care Team Providers Care Rabbit Fancier Name Role Phone Deep Pruitt APRN Primary Care Provider Encounter Details Date Type Department Care Team ([facility] st Contact Info) Description 06/13/2020 Scanned Document [facility] [address] [place], [place] [phone] Deep Pruitt APRN [address] [place] [address] Social History Tobacco Use Types [...] PHQ-2 Score 0 03/13/2020 [facility] of Occupat ional Health - Occupational [...] documented as of this encounter Care Teams Rabbit Fancier Relationship Specialty Start Date End Date Deep Pruitt APRN PCP - General 05/22/19 documented as of this encounter
--- OUTSIDE RECORDS SUMMARY | 2025-02-25 21:03 | XMS_ITS | Encounter Summary ---
Author Organization [facility] Address [address] [place] [address] Care Team Providers Care Electrical Cad Designer Name Role Phone Deep Pruitt APRN Primary Care Provider Reason for Visit * Reason Comments Medication Refill Encounter Details Date Type Department Care Team (Late st Contact Info) Description 06/19/2020 Refill [facility] [address] [place], [place] [phone] Janel Cummins APRN [address] [place] [phone] Medication Refill Social History Tobacco Use Types [...] Recorded PHQ-2 Score 0 03/13/2020 [facility] [...] as of this encounter Care Teams Electrical Cad Designer Relationship Specialty Start Date End Date Deep Pruitt APRN PCP - General 05/22/19 documented as of this encounter
--- OUTSIDE RECORDS SUMMARY | 2025-02-25 21:04 | XMS_ITS | Encounter Summary ---
Author Organization [facility] Address [address] [place] [address] Care Team Providers Care Information Technology Professor Name Role Phone Deep Pruitt APRN Primary Care Provider [phone] Reason for Visit * Reason Comments Advice Only Other Encounter Details Date Type Department Care Team ([facility] Contact Info) Description 12/02/2021 Telephone [facility] [address] [place] [address] Deep Pruitt APRN [address] [place] [address] Advice Only; Other Social History [...] Total Score 0 11/17/2021 [facility] - [...] Mira Rios - 12/02/2021 1:32 PM EDT [facility] - [address] calling in regards to med refill request for Carvedilol 25 mg and Gabapentin medications. Call back [phone] * Telephone Encounter - Leah Madera LPN - 12/02/2021 1:21 PM EDT Patient at * Telephone Encounter - Usha Kline - 12/02/2021 12:18 PM EDT Pt is having a lot of stomach pain on the left side and would like to speak with PCP or nurse. Requesting a call back. [facility] callback number [phone] Malaysian speaking documented in this encounter Plan of Treatment Not on file documented as of this encounter Visit Diagnoses Diagnosis Neuropathy due to type 2 diabetes mellitus (HC Code) (HC CODE) Diabetic foot (HC Code) (HC CODE) Type II or unspecified type diabetes mellitus with other specified manifestations, not stated as uncontrolled Essential hypertension Unspecified essential hypertension documented in this encounter Additional Health Concerns Assessment Noted Time PHQ-9 Depression Total Score: 0 11/18/19 22 10:55 AM EDT documented as of this encounter Care Teams Information Technology Professor Relationship Specialty Start Date End Date Deep Pruitt APRN PCP - General 05/22/19 documented as of this encounter
--- OUTSIDE RECORDS SUMMARY | 2025-02-25 21:04 | XMS_ITS | Encounter Summary ---
Author Organization [facility] Address [address] [place] [address] Care Team Providers Care Fryline Attendant Name Role Phone Deep Pruitt APRN Primary Care Provider Reason for Visit * Reason Comments Medication Refill Encounter Details Date Type Department Care Team ([facility] st Contact Info) Description 03/08/2021 Refill [facility] [address] [place], [place] [phone] Deep Pruitt APRN [address] [place] [address] Medication Refill Social History Tobacco [...] Date Recorded PHQ-2 Total Score 2 03/10/2021 [facility] [...] documented as of this encounter Care Teams Fryline Attendant Relationship Specialty Start Date End Date Deep Pruitt APRN PCP - General 05/22/19 documented as of this encounter
--- OUTSIDE RECORDS SUMMARY | 2025-02-25 21:04 | XMS_ITS | Encounter Summary ---
Author Organization [facility] Address [address] [place] [address] Care Team Providers Care Clock And Watch Hands Dipper Name Role Phone Romelia Pruittian Niko LOPEZ Primary Care Provider Encounter Details Date Type Department Care Team (Late st Contact Info) Description 11/30/2021 Scanned Document [facility] [address] [place] [address] External, Provider Social History Tobacco Use Types [...] documented as of this encounter Care Teams Clock And Watch Hands Dipper Relationship Specialty Start Date End Date Deep Pruitt APRN PCP - General 05/22/19 documented as of this encounter
--- OUTSIDE RECORDS SUMMARY | 2025-02-25 21:04 | XMS_ITS | Encounter Summary ---
Author Organization [facility] Address [address] [place] [address] Care Team Providers Care Spring Winder Name Role Phone Deep Pruitt APRN Primary Care Provider Reason for Visit * Reason Comments Medication Refill Encounter Details Date Type Department Care Team ([facility] st Contact Info) Description 12/15/2021 Refill [facility] [address] [place], [place] [phone] Deep Pruitt APRN [address] [place] [address] Medication Refill Social History [...] Date Recorded PHQ-2 Total Score 1 12/16/2021 [facility] - [...] as of this encounter Care Teams Spring Winder Relationship Specialty Start Date End Date Deep Pruitt APRN PCP - General 05/22/19 documented as of this encounter
--- OUTSIDE RECORDS SUMMARY | 2025-02-25 21:04 | XMS_ITS | Encounter Summary ---
Author Organization [facility] Address [address] [place] [address] Care Team Providers Care Superintendent Oil Field Drilling Name Role Phone Deep Pruitt Niko LOPEZ Primary Care Provider Reason for Visit * Reason Comments Medication Refill Encounter Details Date Type Department Care Team (Late st Contact Info) Description 05/06/[address] [phone] Arben Fountain, [employer] [address] [place] [address] Medication Refill Social History Tobacco [...] as of this encounter Care Teams Superintendent Oil Field Drilling Relationship Specialty Start Date End Date Deep Pruitt APRN PCP - General 05/22/19 documented as of this encounter
--- OUTSIDE RECORDS SUMMARY | 2025-02-25 21:04 | XMS_ITS | Encounter Summary ---
Author Organization [facility] Address [address] [place] [address] Care Team Providers Care Marine Operations Coordinator Name Role Phone Deep Pruitt APRN Primary Care Provider Reason for Visit * Reason Comments Medication Refill Encounter Details Date Type Department Care Team ([facility] st Contact Info) Description 05/18/2020 Refill [facility] [address] [place] [address] Deep Pruitt APRN [address] [place] [phone] Medication Refill Social History Tobacco Use [...] Answer Date Recorded PHQ-2 Score 0 03/13/2020 [facility] [...] as of this encounter Care Teams Marine Operations Coordinator Relationship Specialty Start Date End Date Deep Pruitt APRN PCP - General 05/22/19 documented as of this encounter
--- OUTSIDE RECORDS SUMMARY | 2025-02-25 21:04 | XMS_ITS | Encounter Summary ---
Author Organization [facility] [employer] [facility] and [facility] Address [address] [place] [address] Care Team Providers Care Pilot Control Operator Helper Name Role Phone Deep Pruitt APRN Primary Care Provider Reason for Visit * Reason Comments DME Encounter Details Date Type Department Care Team (Late st Contact Info) Description 04/11/2022 Documentation Sleep Medicine Program at [address] [place] [address] Jarad De Leon MD [address] [place] [phone] Social History Tobacco Use Types Packs/Day [...] as of this encounter Care Teams Pilot Control Operator Helper Relationship Specialty Start Date End Date Deep Pruitt APRN PCP - General 05/22/19 documented as of this encounter
--- OUTSIDE RECORDS SUMMARY | 2025-02-25 21:04 | XMS_ITS | Encounter Summary ---
Author Organization [facility] [employer] and [facility] Address [address] [place] [address] Care Team Providers Care Academic Coordinator Name Role Phone Deep Pruitt APRN Primary Care Provider Reason for Visit * Reason Onset Date Comments Medication Refill 11/19/2021 Encounter Details Date Type Department Care Team (Late st Contact Info) Description 11/19/2021 Refill [facility] [address] [facility] [address] [facility] 2nd [place] [address] Yue Dominguez APRN [address] [place] [phone] Medication Refill Social History Tobacco Use Types [...] as of this encounter Care Teams Academic Coordinator Relationship Specialty Start Date End Date Deep Pruitt APRN PCP - General 05/22/19 documented as of this encounter
--- OUTSIDE RECORDS SUMMARY | 2025-02-25 21:04 | XMS_ITS | Encounter Summary ---
Author Organization [facility] Address [address] [place] [address] Care Team Providers Care Cooler Man Name Role Phone Deep Pruitt JOHN Primary Care Provider Encounter Details Date Type Department Care Team (Late st Contact Info) Description 09/26/2016 Scanned Document [facility] [address] [place], [place] [phone] External, Provider Social History Tobacco Use Types [...] documented as of this encounter Care Teams Cooler Man Relationship Specialty Start Date End Date Deep Pruitt APRN PCP - General 05/22/19 documented as of this encounter
--- OUTSIDE RECORDS SUMMARY | 2025-02-25 21:04 | XMS_ITS | Encounter Summary ---
Author Organization [facility] Address [address] [place] [address] Care Team Providers Care Cell Lead Name Role Phone Deep Pruitt APRN Primary Care Provider Reason for Visit * Reason Comments Medication Refill Encounter Details Date Type Department Care Team ([facility] st Contact Info) Description 11/17/2021 Refill [facility] [address] [place], [place] [phone] Deep Pruitt APRN [address] [place] [address] Medication Refill Social History Tobacco [...] Date Recorded PHQ-2 Total Score 0 11/17/2021 [facility] of Occupat ional [...] documented as of this encounter Care Teams Cell Lead Relationship Specialty Start Date End Date Deep Pruitt APRN PCP - General 05/22/19 documented as of this encounter
--- OUTSIDE RECORDS SUMMARY | 2025-02-25 21:04 | XMS_ITS | Encounter Summary ---
Author Organization [facility] Address [address] [place] [address] Care Team Providers Care Primary Health Organisation Manager Name Role Phone MuseDeep meidna Niko LOPEZ Primary Care Provider [phone] Reason for Visit * Reason Onset Date Comments Medication Refill 11/19/2021 Encounter Details Date Type Department Care Team (Late st Contact Info) Description 11/19/2021 Refill [facility] [address] [place] [address] Audelia Childs, DDS [address] [place] [address] Medication Refill Social History Tobacco [...] Date Recorded PHQ-2 Total Score 0 11/17/2021 [facility] [place] of Occupat ional Health - Occupational Stress [...] documented as of this encounter Care Teams Primary Health Organisation Manager Relationship Specialty Start Date End Date Deep Pruitt APRN PCP - General 05/22/19 documented as of this encounter
--- OUTSIDE RECORDS SUMMARY | 2025-02-25 21:04 | XMS_ITS | Encounter Summary ---
Author Organization [facility] Address [address] [place] [address] Care Team Providers Care Propeller Engineer Name Role Phone Deep Pruitt APRN Primary Care Provider Reason for Visit * Reason Comments Medication Refill Encounter Details Date Type Department Care Team ([facility] st Contact Info) Description 12/18/2021 Refill [facility] [address] [place], [place] [phone] Deep Pruitt APRN [address] [place] [address] Medication Refill Social History Tobacco [...] Total Score 4 12/20/2021 [facility] Occupat [...] documented as of this encounter Care Teams Propeller Engineer Relationship Specialty Start Date End Date Deep Pruitt APRN PCP - General 05/22/19 documented as of this encounter
--- OUTSIDE RECORDS SUMMARY | 2025-02-25 21:04 | XMS_ITS | Encounter Summary ---
Author Organization [facility] [employer] [facility] and [facility] Address [address] [place] [address] Care Team Providers Care Apparel Stock Checker Name Role Phone Deep Pruitt APRN Primary Care Provider Reason for Visit * Reason Onset Date Comments Medication Refill 11/10/2021 Encounter Details Date Type Department Care Team (Late st Contact Info) Description 11/10/2021 Refill [facility] [address] [facility] [address] [facility] 2nd [place] [address] Taylor Malagon, [facility] [address] [place] [phone] Medication Refill Social History Tobacco Use Types [...] [facility] Occupat ional [facility] - [...] today, but unknown at home. Defer to [facility] pharmacy team for antihypertensive management. [...] documented as of this encounter Care Teams Apparel Stock Checker Relationship Specialty Start Date End Date Deep Pruitt APRN PCP - General 05/22/19 documented as of this encounter
--- OUTSIDE RECORDS SUMMARY | 2025-02-25 21:04 | XMS_ITS | Encounter Summary ---
Author Organization [facility] Address [address] [place] [address] Care Team Providers Care Greeter Guest Services Name Role Phone Deep Pruitt APRN Primary Care Provider Reason for Visit * Reason Comments Other Advice Only Encounter Details Date Type Department Care Team ([facility] Contact Info) Description 10/20/2021 Telephone [facility] [address] [place] [address] Deep Pruitt APRN [address] [place] [address] Other; Advice Only Social History [...] 0 10/12/2021 [facility]at [facility] - [...] legs have not stops hurting. Contact number [phone] documented in this encounter Plan of Treatment Not on file documented as of this encounter Visit Diagnoses Not on filedocumented in this encounter Additional Health Concerns Assessment Noted Time PHQ-9 Depression Total Score: 0 10/13/19 22 2:23 PM EDT documented as of this encounter Care Teams Greeter Guest Services Relationship Specialty Start Date End Date Deep Pruitt APRN PCP - General 05/22/19 documented as of this encounter
--- OUTSIDE RECORDS SUMMARY | 2025-02-25 21:04 | XMS_ITS | Encounter Summary ---
Author Organization [facility] Address [address] [place] [address] Care Team Providers Care Cosmetic Sales Assistant Name Role Phone Deep Pruitt APRN Primary Care Provider Reason for Visit * Reason Comments Medication Refill Encounter Details Date Type Department Care Team ([facility] st Contact Info) Description 03/20/2021 Refill [facility] [address] [place] [address] Deep Pruitt APRN [address] [place] [address] Medication Refill Social History Tobacco Use [...] Date Recorded PHQ-2 Total Score 1 03/24/2021 [facility] of Occupat ional Health [...] documented as of this encounter Care Teams Cosmetic Sales Assistant Relationship Specialty Start Date End Date Deep Pruitt APRN PCP - General 05/22/19 documented as of this encounter
--- OUTSIDE RECORDS SUMMARY | 2025-02-25 21:04 | XMS_ITS | Encounter Summary ---
Author Organization [facility] [employer] and [facility] Address [address] [place] [address] Care Team Providers Care Intern Architect Name Role Phone Deep Pruitt APRN Primary Care Provider [phone] Reason for Visit * Reason Onset Date Comments Medication Refill 11/10/2021 Encounter Details Date Type Department Care Team (Late st Contact Info) Description 11/10/2021 Refill [facility] [address] [facility] [address] [facility] 2nd [place] [address] Taylor Malagon, [facility] [address] [place] [phone] Medication Refill Social History Tobacco Use Types [...] PHQ-2 Total Score 0 10/12/2021 [facility] of Occupat ional [facility] - Occupational Stress Questionnaire Answer Date [...] documented as of this encounter Care Teams Intern Architect Relationship Specialty Start Date End Date Deep Pruitt APRN PCP - General 05/22/19 documented as of this encounter
--- OUTSIDE RECORDS SUMMARY | 2025-02-25 21:04 | XMS_ITS | Encounter Summary ---
Author Organization [facility] Address [address] [place] [address] Care Team Providers Care Almond Blancher Hand Name Role Phone Sonal Deep Niko LOPEZ Primary Care Provider [phone] Reason for Visit * Reason Comments Medication Refill Encounter Details Date Type Department Care Team ([facility] st Contact Info) Description 04/07/2021 Refill [facility] [address] [place] [phone] Aliya Pond, [address] [address] Medication Refill Social History Tobacco [...] Date Recorded PHQ-2 Total Score 1 03/24/2021 [facility] [...] documented as of this encounter Care Teams Almond Blancher Hand Relationship Specialty Start Date End Date Deep Pruitt APRN PCP - General 05/22/19 documented as of this encounter
--- OUTSIDE RECORDS SUMMARY | 2025-02-25 21:04 | XMS_ITS | Encounter Summary ---
Author Organization [facility] Address [address] [place] [address] Care Team Providers Care Pot Filler Name Role Phone Deep Pruitt APRN Primary Care Provider Encounter Details Date Type Department Care Team ([facility] st Contact Info) Description 10/27/2021 Scanned Document [facility] [address] [place], [place] [phone] Deep Pruitt APRN [address] [place] [address] [...] documented as of this encounter Care Teams Pot Filler Relationship Specialty Start Date End Date Deep Pruitt APRN PCP - General 05/22/19 documented as of this encounter
--- OUTSIDE RECORDS SUMMARY | 2025-02-25 21:04 | XMS_ITS | Encounter Summary ---
Author Organization [facility] [employer] [facility] and [facility] Address [address] [place] [address] Care Team Providers Care Boom Supervisor Name Role Phone Deep Pruitt APRN Primary Care Provider [phone] Reason for Visit * Reason Onset Date Comments Medication Refill 11/10/2021 Encounter Details Date Type Department Care Team (Late st Contact Info) Description 11/10/2021 Refill [facility] at [address] [place], [place] [phone] Anahi Rossi, JOHN [address] [place] [address] Medication Refill Social History Tobacco [...] 0 10/12/2021 [facility] Occupat ional [facility] - Occupational Stress Questionnaire Answer Date [...] as of this encounter Care Teams Boom Supervisor Relationship Specialty Start Date End Date Deep Pruitt APRN PCP - General 05/22/19 documented as of this encounter
--- OUTSIDE RECORDS SUMMARY | 2025-02-25 21:04 | XMS_ITS ---
Author Organization [facility] Address [address] [facility] 7t [place] [address] Care Team Providers Care Automobile Upholsterer Apprentice Name Role Phone Katrin Santoyo MD Primary Care Pro vider Edison Vieira MD Unavailable [phone] Joe Devi MD Unavailable [phone] Chuy Mcmanus MD Unavailable Sveta Lazaro RN Unavailable [phone] Leslie Kline Unavailable [facility] Status:Outreach In Progress (Enrolling) Start date:11/29/2024 Enrollment reason:ADT Feed Overview [facility] ED 11/28/24. Please outreach for enrollment. Case Team Name Relationship Phone Leslie Kline(Responsible Staff) [phone] Continued Care and Services Coordination
--- OUTSIDE RECORDS SUMMARY | 2025-02-25 21:04 | XMS_ITS | Encounter Summary ---
Author Organization [facility] Address [address] [place] [address] Care Team Providers Care Vehicle Washer Name Role Phone Deep Pruitt APRN Primary Care Provider [phone] Reason for Visit * Reason Comments Medication Refill Encounter Details Date Type Department Care Team ([facility] st Contact Info) Description 03/10/2021 Refill [facility] [address] [place] [address] Deep Pruitt APRN [address] [place] [address] Medication Refill Social History Tobacco Use [...] Date Recorded PHQ-2 Total Score 2 03/10/2021 [facility] of Occupat ional Health [...] as of this encounter Care Teams Vehicle Washer Relationship Specialty Start Date End Date Deep Pruitt APRN PCP - General 05/22/19 documented as of this encounter
--- OUTSIDE RECORDS SUMMARY | 2025-02-25 21:04 | XMS_ITS | Clinical Summary ---
Author Organization [facility] Address [address] [place] [address] Care Team Providers Care Child'S Nurse Name Role Phone Katrin Santoyo Primary Care Provider [phone] Allergies Active Allergy Reactions Criticality Noted Date Comments Penicillin Unknown Medium 01/13/2025 Medications fluticasone propion-salmete roL (Advair HFA) 230-21 mcg/actuation inhaler Inhale 2 puffs by mouth 2 times a day. Rinse mouth with water after use to reduce aftertaste and incidence of candidiasis. Do not swallow. Active amLODIPine (NORVASC) 5 mg tablet Take 5 mg by mouth once a day. Active aspirin chewable tablet 81 mg Chew and swallow 81 mg by mouth once a day. Active atorvastatin (LIPITOR) 80 mg tablet Take 80 mg by mouth once a day. Active carvediloL (COREG) 25 mg tablet Take 25 mg by mouth 2 times a day with meals. Active cholecalciferol (VITAMIN D3) 2,000 unit capsule Take 1 capsule by mouth once a day. Active clonazePAM (KlonoPIN) 0.5 mg tablet Take 0.5 mg by mouth 3 times a day. Active diphenhydrAMINE (SOMINEX) tablet 25 mg Take 25 mg by mouth every 8 hours as needed for itching. Active divalproex ER (DEPAKOTE ER) 500 mg tablet Take 500 mg by mouth once a day. Active ezetimibe (ZETIA) 10 mg tablet Take 10 mg by mouth once a day. Active febuxostat (Uloric) 40 mg tablet Take 40 mg by mouth once a day. Active furosemide (LASIX) 40 mg tablet Take 40 mg by mouth 2 times a day. Active gabapentin (NEURONTIN) 100 mg capsule Take 100 mg by mouth 3 times a day. Active empagliflozin (Jardiance) 10 mg Take 10 mg by mouth once a day. Active omega-3 acid ethyl esters (Lovaza) 1 gram capsule Take 2 g by mouth 2 times a day. Active tiotropium (SPIRIVA HANDIHALER) 18 mcg inhalation capsule Inhale 1 capsule via handihaler once a day. Active traMADoL (ULTRAM) 50 mg tablet Take 50 mg by mouth every 12 hours as needed for pain. Active traZODone (DESYREL) 150 mg tablet Take 150 mg by mouth nightly. Active albuterol (PROAIR HFA,VENTOLIN HFA) 90 mcg inhaler Inhale 1-2 puffs by mouth every 6 hours as needed for wheezing or shortness of breath. Use with spacer. Active albuterol 2.5 mg/3 mL (0.083%) nebulizer solution Inhale 1 vial via nebulizer every 6 hours as needed for wheezing or shortness of breath. Active ziprasidone (GEODON) 80 mg capsule Take 80 mg by mouth nightly. Active Active Problems Problem Noted Date Diagnosed Date Pre-transplant evaluation for end stage renal di sease 01/30/2025 Hyperparathyroidism, secondary renal 01/13/2025 Anemia in ESRD (end-stage renal disease) 025 Hypertension 01/13/2025 TIA (transient ischemic attack) 01/13/2025 Gout 01/13/2025 Chronic pain 01/13/2025 HLD (hyperlipidemia) 01/13/2025 Type 2 diabetes mellitus 01/13/2025 Diabetic polyneuropathy 01/13/2025 Schizoaffective disorder 01/13/2025 Sleep apnea 01/13/2025 Obesity 01/13/2025 Encounters Date Type Department Care Team Description 01/30/2025 12:05 PM EDT Lab [facility] Draw Site [address] [place] [address] Pre-transplant evaluation for end stage renal disease; Weak urine stream; Type 2 diabetes mellitus with chronic kidney disease on chronic dialysis, unspecified whether chcf insulin use (HCC) 01/30/2025 10:15 AM EDT Office Visit [facility] Renal Transplant [address] [place] [address] Shashank Aguialr MD Pre-transplant evaluation for kidney transplant (Primary Dx); Preop cardiovascular exam; Cerebrovascular accident (CVA), unspecified mechanism (HCC); Obstructive lung disease (generalized) ([facility]); Pre-transplant evaluation for end stage renal disease; ESRD (end stage renal disease) ([facility]) 01/30/2025 9:30 AM EDT Social Work [facility] Renal Transplant [address] [place] [address] Gloria Luna LICSW 01/30/2025 8:30 AM EDT Evaluation [facility] Renal Transplant [address] [place] [address] Radha Winter RN Pre-transplant evaluation for kidney transplant (Primary Dx) 01/30/2025 8:00 AM EDT Office Visit [facility] Renal Transplant [address] [place] [phone] Nereida Crane RN Pre-transplant evaluation for kidney transplant (Primary Dx) 01/30/2025 Orders Only [facility] Transplant Department [address] [place] [phone] Radha Winter RN Pre-transplant evaluation for end stage renal disease (Primary Dx); Type 2 diabetes mellitus with chronic kidney disease on chronic dialysis, unspecified whether exterminator helper termite insulin use ([facility]); Weak urine stream 01/27/2025 Telephone [facility] Transplant Department [address] [place] [address] Radha Winter RN 01/13/2025 Telephone [facility] Transplant Department [address] [place] [phone] Radha Winter, CASIE 01/13/2025 Orders Only [facility] Transplant Department [address] [place] [address] Radha Winter, CASIE Pre-transplant evaluation for end stage renal disease (Primary Dx); Weak urine stream; Type 2 diabetes mellitus with diabetic nephropathy, unspecified whether chcf insulin use (HCC) 01/13/2025 Orders Only [facility] Transplant Department [address] [place] [address] Radha Winter RN 01/13/2025 Telephone [facility] Transplant Department [address] [place] [address] Go Solis 01/09/2025 Telephone [facility] Transplant Department [address] [place] [address] Radha Winter, CASIE from Last 3 Months Social History Tobacco Use Types Packs/Day Years Used Date Smoking Tobacco: Never Smokeless Tobacco: Never Tobacco Cessation:Counseling Given: Not Answered Alcohol Use Standard Drinks/Week Comments Never 0 (1 standard drink = 0.6 oz pur e alcohol) Sex and Gender Information Value Date Recorded Sex Assigned at Male 01/03/2025 1:59 PM EDT Legal Sex Male 1:51 PM EDT Gender Identity Male 01/03/2025 1:59 PM EDT Sexual Orientation Not on file Last Filed Vital Signs Vital Sign Reading Time Taken Comments Blood Pressure 112/61 01/30/2025 7:59 AM EDT Pulse 89 01/30/2025 7:59 AM EDT Temperature 37.1 C (98.7 F) 01/30/2025 7:59 AM EDT Respiratory Rate 20 01/30/2025 7:59 AM EDT Oxygen Saturation 95% 01/30/2025 7:59 AM EDT Inhaled Oxygen Concentration - - Weight 102.7 kg (226 lb 6.6 oz) 01/30/2025 7:59 AM EDT Height 170 cm (5' 6.93 ) 01/30/2025 7:59 AM EDT Body Mass Index 35.54 01/30/2025 7:59 AM EDT Plan of Treatment Upcoming Encounters Date Type Department Care Team (Late st Contact Info) Description 03/05/2025 10:30 AM EDT Office Visit [facility] Liver Transplant Services [address] [place] [phone] Deep Pagan MD [address] [place] [phone] 03/06/2025 10:00 AM EDT Appointment [facility] Pulmonary Function Lab [address] [place] [address] 01/27/2026 9:00 AM EDT Follow-Up [facility] Renal Transplant [address] [place] [address] Shashank Aguilar MD [address] [place] [address] 01/27/2026 9:30 AM EDT Social Work [facility] Renal Transplant [address] [place] [address] Gloria Luna LICSW [address] [place] [address] Health Maintenance Due Date Last Done Comments 25 Hydroxy / Vitamin D 1970 CKD: Referral to Nutrition 1970 Cologuard 1970 Colonoscopy 1970 Sigmoidoscopy 1970 Zoster Vaccines (1 of 2) 2020 Ophthalmology Exam 07/01/2020 07/01/2019 Urine Microalbumin 02/15/2023 02/15/2022 Alcohol/Substance Use Screening 05/08/2024 Depression Screening and Follow-Up 05/08/2024 Social Drivers of Health Isabelle ual Screening 05/08/2024 Colon Cancer Screening 05/17/2024 FOBT / Fit Test 05/17/2024 05/17/2023 COVID-19 Vaccine (2024-2 6 season) 2025 02/01/2024, 04/14/2021, 08/28/2020, Additional history exists Influenza Vaccine (#1) 2025 , 01/23/2023, 03/24/2022, Additional history exists Basic Metabolic Panel 01/07/2025 10/07/2024 Hemoglobin A1C 07/30/2025 01/30/2025, 062 11/2024, 06/23/2022 Hemoglobin 01/30/2026 01/30/2025 PTH 01/30/2026 01/30/2025 Phosphorus 01/30/2026 01/30/2025 DTaP,Tdap,and Td Vaccines (3 - Td or Tdap) 03/24/2032 03/24/2022, 10/05/2016 RSV Vaccine (60+ years old a nd patients) (1 - 1-dose 75+ series) 2045 Hepatitis B Vaccines Completed 04/05/2017, 10/05/2016, 08/17/2016 Pneumococcal Vaccine: 50+ Years Completed , 01/21/2021 CKD: Referral to Nephrology Completed 01/30/2025 HIV Screening Completed 01/30/2025, 06/2024, 10/07/2024 Hepatitis C Screening Completed 01/30/2025 , 10/07/2024, 02/06/2020 Procedures * Due to [place] state law, this organization might not be sharing negative HIV tests. Procedure Name Priority Date/Time Associated Diagnosis Comments HERPES SIMPLEX VIRUS 1&2 IGG W/REFLEX TO HSV-2 INHIBITION Routine 01/30/2025 12:26 PM EDT Pre-transplant evaluation for end stage renal disease Weak urine stream Type 2 diabetes mellitus with chronic kidney disease on chronic dialysis, unspecified whether chcf insulin use (HCC) ABO/RH BLOOD TYPE Routine 01/30/2025 12: 26 PM EDT Pre-transplant evaluation for end stage renal disease ALBUMIN Routine 01/30/2025 12:26 PM EDT Pre-transplant evaluation for end stage renal disease ALT Routine 01/30/2025 12:26 PM EDT Pre-transplant evaluation for end stage renal disease AST Routine 01/30/2025 12:26 PM EDT Pre-transplant evaluation for end stage renal disease BILIRUBIN, DIRECT Routine 01/30/2025 12: 26 PM EDT Pre-transplant evaluation for end stage renal disease BILIRUBIN, TOTAL Routine 01/30/2025 12:2 6 PM EDT Pre-transplant evaluation for end stage renal disease BUN Routine 01/30/2025 12:26 PM EDT Pre-transplant evaluation for end stage renal disease CALCIUM Routine 01/30/2025 12:26 PM EDT Pre-transplant evaluation for end stage renal disease CBC AUTO DIFFERENTIAL Routine 01/30/2025 12:26 PM EDT Pre-transplant evaluation for end stage renal disease CREATININE Routine 01/30/2025 12:26 PM EDT Pre-transplant evaluation for end stage renal disease CYTOMEGALOVIRUS ANTIBODY, IGG Routine 01/30/2025 12:26 PM EDT Pre-transplant evaluation for end stage renal disease ALISHA-FINK VIRUS ANTIBODY PANEL Routine 01/30/2025 12:26 PM EDT Pre-transplant evaluation for end stage renal disease HEPATITIS A ANTIBODY, TOTAL Routine 01/30/2025 12:26 PM EDT Pre-transplant evaluation for end stage renal disease HEPATITIS B CORE ANTIBODY, TOTAL Routine 01/30/2025 12:26 PM EDT Pre-transplant evaluation for end stage renal disease HEPATITIS B SURFACE ANTIGEN W/CONFIRMATION Routine 01/30/2025 12:26 PM EDT Pre-transplant evaluation for end stage renal disease HEPATITIS B SURFACE ANTIBODY Routine 01/30/2025 12:26 PM EDT Pre-transplant evaluation for end stage renal disease HEPATITIS C ANTIBODY W/REFLEX TO HCV RNA, QUANTITATIVE PCR Routine 01/30/2025 12:26 PM EDT Pre-transplant evaluation for end stage renal disease HIV-1/2 ANTIGEN/ANTIBODIES 4TH GENERATION W/REFLEX Routine 01/30/2025 12:26 PM EDT Pre-transplant evaluation for end stage renal disease MMR PANEL (MEASLES, MUMPS, RUBELLA), IGG Routine 01/30/2025 12:26 PM EDT Pre-transplant evaluation for end stage renal disease PHOSPHORUS Routine 01/30/2025 12:26 PM EDT Pre-transplant evaluation for end stage renal disease PROTIME-INR Routine 01/30/2025 12:26 PM EDT Pre-transplant evaluation for end stage renal disease PTT Routine 01/30/2025 12:26 PM EDT Pre-transplant evaluation for end stage renal disease QUANTIFERON-TB GOLD PLUS, 1 [id number] Routine 01/30/2025 12:26 PM EDT Pre-transplant evaluation for end stage renal disease RPR (DIAGNOSIS) W/REFLEX TO TITER & TPPA [id number] Routine 01/30/2025 12:26 PM EDT Pre-transplant evaluation for end stage renal disease VARICELLA ZOSTER ANTIBODY, IGG Routine 01/30/2025 12:26 PM EDT Pre-transplant evaluation for end stage renal disease HLA TRANSPLANT WORK-UP (ALLELE LEVEL A/B/C/DRB1/HRF723/DQA1/ DQB1/DPA1/DPB1) Routine 01/30/2025 12:26 PM EDT Pre-transplant evaluation for end stage renal disease HLA ANTIBODY IDENTIFICATION WITH TREATMENT - CLASS I Routine 01/30/2025 12:26 PM EDT Pre-transplant evaluation for end stage renal disease HLA ANTIBODY IDENTIFICATION WITH TREATMENT - CLASS II Routine 01/30/2025 12:26 PM EDT Pre-transplant evaluation for end stage renal disease HEMOGLOBIN A1C Routine 01/30/2025 12:26 PM EDT Pre-transplant evaluation for end stage renal disease Type 2 diabetes mellitus with chronic kidney disease on chronic dialysis, unspecified whether chcf insulin use (HCC) PTH, INTACT (WITHOUT CALCIUM) Routine 01/30/2025 12:26 PM EDT Pre-transplant evaluation for end stage renal disease PSA Routine 01/30/2025 12:26 PM EDT Pre-transplant evaluation for end stage renal disease Weak urine stream from Last 3 Months Results * Due to [place] state law, this organization might not be sharing negative HIV tests. * HLA Transplan Work-Up(Allele Level A/B/C/DRB1/EBV390/DQA1/DQB1/DPA1/DPB1) (01/30/2025 12:26 PM EDT) Pathologist [facility] Information See Below 02/04/2025 5:23 PM EDT [facility] Comment: CHRISTOPHER: [id number] Director: Yamini Brandt MD. [facility] PFI: [id number] UNOS: [id number] This test was developed and its performance characteristics determined by this laboratory. It has not been cleared or approved by the U.S. Food and Drug Administration. The FDA has determined that such clearance or approval is not necessary. This test is used for clinical purposes. It should not be regarded as investigational or for research. This laboratory is certified under the Clinical Laboratory Improvement Amendments of 1988 (CLIA-88) as qualified to perform high complexity clinical laboratory testing. B*-1 B*08:01 02/04/2025 5:23 PM EDT [facility] B*-2 B*49:01 02/04/2025 5:23 PM EDT [facility] B*-1 NMDP DATA NOT REPORTED 02/04/2025 5:23 PM EDT [facility] B*-2 NMDP DATA NOT REPORTED 02/04/2025 5:23 PM EDT [facility] Test Method NGS 02/04/2025 5:23 PM EDT [facility] DRB3-1 DATA NOT REPORTED 02/04/2025 5:23 PM EDT [facility] DRB3-2 DATA NOT REPORTED 02/04/2025 5:23 PM EDT [facility] DRB3-1 NMDP DATA NOT REPORTED 02/04/2025 5:23 PM EDT [facility] DRB3-2 NMDP DATA NOT REPORTED 02/04/2025 5:23 PM EDT [facility] DRB4-1 4*01:01P 02/04/2025 5:23 PM EDT [facility] DRB4-2 DATA NOT REPORTED 02/04/2025 5:23 PM EDT [facility] DRB4-1 NMDP DATA NOT REPORTED 02/04/2025 5:23 PM EDT [facility] DRB4-2 NMDP DATA NOT REPORTED 02/04/2025 5:23 PM EDT [facility] DRB5-1 DATA NOT REPORTED 02/04/2025 5:23 PM EDT [facility] DRB5-2 DATA NOT REPORTED 02/04/2025 5:23 PM EDT [facility] DRB5-1 NMDP DATA NOT REPORTED 02/04/2025 5:23 PM EDT [facility] DRB5-2 NMDP DATA NOT REPORTED 02/04/2025 5:23 PM EDT [facility] DRB1-1 DR*01:01 02/04/2025 5:23 PM EDT [facility] DRB1-2 DR*04:05 02/04/2025 5:23 PM EDT [facility] DRB1-1 NMDP DATA NOT REPORTED 02/04/2025 5:23 PM EDT [facility] DRB1-2 NMDP DATA NOT REPORTED 02/04/2025 5:23 PM EDT [facility] DQA1-1 DQA*01:01 02/04/2025 5:23 PM EDT [facility] DQA1-2 DQA*03:03 02/04/2025 5:23 PM EDT [facility] DQA1-1 NMDP DATA NOT REPORTED 02/04/2025 5:23 PM EDT [facility] DQA1-2 NMDP DATA NOT REPORTED 02/04/2025 5:23 PM EDT [facility] A*-1 A*30:02 02/04/2025 5:23 PM EDT [facility] A*-2 A*33:03 02/04/2025 5:23 PM EDT [facility] A*-1 NMDP DATA NOT REPORTED 02/04/2025 5:23 PM EDT [facility] A*-2 NMDP DATA NOT REPORTED 02/04/2025 5:23 PM EDT [facility] DQB1-1 DQB*03:02 02/04/2025 5:23 PM EDT [facility] DQB1-2 DQB*05:01 02/04/2025 5:23 PM EDT [facility] DQB1-1 NMDP DATA NOT REPORTED 02/04/2025 5:23 PM EDT [facility] DQB1-2 NMDP DATA NOT REPORTED 02/04/2025 5:23 PM EDT [facility] DPA1-1 DPA*02:01 02/04/2025 5:23 PM EDT [facility] DPA1-2 DPA*02:02 02/04/2025 5:23 PM EDT [facility] DPA1-1 NMDP DATA NOT REPORTED 02/04/2025 5:23 PM EDT [facility] DPA1-2 NMDP DATA NOT REPORTED 02/04/2025 5:23 PM EDT [facility] C*-1 C*07:01 02/04/2025 5:23 PM EDT [facility] C*-2 C*07:02 02/04/2025 5:23 PM EDT [facility] C*-1 NMDP DATA NOT REPORTED 02/04/2025 5:23 PM EDT [facility] C*-2 NMDP DATA NOT REPORTED 02/04/2025 5:23 PM EDT [facility] DPB1-1 DPB*01:01 02/04/2025 5:23 PM EDT [facility] DPB1-2 DATA NOT REPORTED 02/04/2025 5:23 PM EDT [facility] DPB1-1 NMDP DATA NOT REPORTED 02/04/2025 5:23 PM EDT [facility] DPB1-2 NMDP DATA NOT REPORTED 02/04/2025 5:23 PM EDT [facility] Blood Structure of peripheral vein / Unknown Venipuncture / Unknown 01/30/2025 12:26 PM EDT 01/30/2025 12:35 PM EDT Shashank Aguilar MD HLA LAB ORDERABLES Edited Result - Final [facility] [address] [facility] Rm: [id number] [place] [address], * (ABNORMAL) Herpes Simplex Virus 1&2 IgG w/Reflex to HSV-2 Inhibition (01/30/2025 12:26 PM EDT) HSV 1 IgG Type Specific Ab 44.80(H) <0.90 Index 02/03/2025 7:38 PM EDT [facility] ([place]) HSV 2 IgG Type Specific Ab <0.90 <0.90 Index 02/03/2025 7:38 PM EDT [employer] [employer] ([place]) Comment: Index Values for HSV-1 and HSV-2 IgG Antibodies: INDEX INTERPRETATION ====== <0.90 Negative 0.90-1.09 Equivocal >1.09 Positive This assay utilizes recombinant type-specific antigens to differentiate HSV-1 from HSV-2 infections. A positive result cannot distinguish between recent and past infection. If results are negative or equivocal, consider repeat testing in 4-12 weeks with a new specimen. The performance characteristics of the assay have not been established for pediatric populations, immunocompromised patients, or screening. Positive HSV-2 IgG samples with index values between 1.10-6.00 will reflex to the HSV-2 IgG inhibition test. For additional information, please refer to http://[employer]/faq/FAQ73 (This link is being provided for informational/ educational purposes only.) Blood Structure of peripheral vein / Unknown Venipuncture / Unknown 01/30/2025 12:26 PM EDT 01/30/2025 12:36 PM EDT Narrative [facility] 02/03/2025 7:38 PM EDT [facility] Received Date: us Shashank Aguilar MD LAB BLOOD ORDERABLES Fauzia guzman Result [facility] [address] [facility] 3rd Floor, [place] [address], [facility] [place] [address] [place], [place] , * MMR Panel, IgG (01/30/2025 12:26 PM EDT) [facility] Measles Antibody (IgG), Immune Status >300.00 AU/mL 01/31/2025 1:21 AM EDT [facility] Comment: AU/mL Interpretation ----- <13.50 Not consistent with immunity 13.50-16.49 Equivocal >16.49 Consistent with immunity The presence of measles IgG suggests immunization or past or current infection with measles virus. For additional information, please refer to http://Calsys.[employer]/faq/IQR942 (This link is being provided for informational/ educational purposes only.) Mumps Antibody (IgG), Immune Status 89.60 AU/mL 01/31/2025 1:21 AM EDT [facility] Comment: AU/mL Interpretation ------- <9.00 Not consistent with immunity 9.00-10.99 Equivocal >10.99 Consistent with immunity The presence of mumps IgG antibody suggests immunization or past or current infection with mumps virus. Rubella Antibody (IgG), Immune Status 4.22 Index 01/31/2025 1:21 AM EDT [facility] Comment: Index Interpretation ----- <0.90 Not consistent with immunity 0.90-0.99 Equivocal > or = 1.00 Consistent with immunity The presence of rubella IgG antibody suggests immunization or past or current infection with rubella virus. Blood Structure of peripheral vein / Unknown Venipuncture / Unknown 01/30/2025 12:26 PM EDT 01/30/2025 12:37 PM EDT Narrative [facility] - 01/31/2025 1:21 AM EDT [facility] Received Date: Shashank Aguilar MD LAB BLOOD ORDERABLES Fauzia l Result [address], [place] [address], [facility] [address], [place] [address], * RPR (Diagnosis) w/Reflex to Titer & TPPA Confirm (01/30/2025 12:26 PM EDT) RPR W/Refl Titer NON-REACT NICKIE NON-REACT NICKIE 01/31/2025 11:26 AM EDT [facility] Blood Structure of peripheral vein / Unknown Venipuncture / Unknown 01/30/2025 12:26 PM EDT 01/30/2025 12:38 PM EDT Narrative [facility] - 01/31/2025 11:26 AM EDT [facility] Received Date: Shashank Aguilar MD LAB BLOOD ORDERABLES Fauzia l Result [facility] MARCOS [address] [facility] 3rd Floor, [place] [address], [facility] [address] [facility] 3[address] Floor, [place] [address], * QuantiFERON-TB Gold Plus, 1 Tube (01/30/2025 12:26 PM EDT) [facility] QuantiFERON-TB Gold Plus NEGATIVE NEGATIVE 02/01/2025 5:42 PM EDT [facility] Comment: Negative test result. M. tuberculosis complex infection unlikely. NIL 0.02 IU/mL 02/01/2025 5:42 PM EDT [facility] Mitogen-NIL 8.31 IU/mL 02/01/2025 5:42 PM EDT [facility] TB1-NIL 0.00 IU/mL 02/01/2025 5:42 PM EDT [facility] TB2-NIL 0.01 IU/mL 02/01/2025 5:42 PM EDT [facility] Comment: The Nil tube value reflects the background interferon gamma immune response of the patient's blood sample. This value has been subtracted from the patient's displayed TB and Mitogen results. Lower than expected results with the Mitogen tube prevent false-negative Quantiferon readings by detecting a patient with a potential immune suppressive condition and/or suboptimal pre-analytical specimen handling. The TB1 Antigen tube is coated with the M. tuberculosis-specific antigens designed to elicit responses from TB antigen primed CD4+ helper T-lymphocytes. The TB2 Antigen tube is coated with the M. tuberculosis-specific antigens designed to elicit responses from TB antigen primed CD4+ helper and CD8+ cytotoxic T-lymphocytes. For additional information, please refer to https://education.XAircraft.[employer]al [employer]ognition Systems/faq/CRO075 (This link is being provided for informational/ educational purposes only.) Blood Structure of peripheral vein / Unknown Venipuncture / Unknown 01/30/2025 12:26 PM EDT 01/30/2025 12:34 PM EDT Narrative [facility] - 02/01/2025 5:42 PM EDT [facility] Received Date: Shashank Aguilar MD LAB BLOOD ORDERABLES Fauzia guzman Result [facility] REDDING [address] [facility] 3[address] Floor, [place] [address], [place] [phone] [facility] [address] [facility] 3rd Floor, [place] [address], * (ABNORMAL) CBC Auto Differential (01/30/2025 12:26 PM EDT) WBC 14.5(H) 3.8 - 10.8 10*3/uL 01/30/2025 12:47 PM EDT [facility] RBC 4.00(L) 4.20 - 5.80 10*6/uL 01/30/2025 12:47 PM EDT [facility] Hemoglobin 11.5(L) 13.2 - 17.1 g/dL 01/30/2025 12:47 PM EDT [facility] Hematocrit 36.1(L) 38.5 - 50.0 % 01/30/2025 12:47 PM EDT [facility] MCV 90.3 80.0 - 100.0 fL 01/30/2025 12:47 PM EDT [facility] MCH 28.8 27.0 - 33.0 pg 01/30/2025 12:47 PM EDT [facility] MCHC 31.9(L) 32.0 - 36.0 g/dL 01/30/2025 12:47 PM EDT [facility] RDW 14.1 11.0 - 15.0 % 01/30/2025 12:47 PM EDT [facility] Platelets 337 140 - 400 10*3/uL 01/30/2025 12:47 PM EDT [facility] MPV 12.1 7.5 - 12.5 fL 01/30/2025 12:47 PM EDT [facility] Neutrophil % 64.9 % 01/30/2025 12:47 PM EDT [facility] Immature Grans % 0.6 0.0 - 0.9 % 01/30/2025 12:47 PM EDT [facility] Lymphocyte % 17.4 % 01/30/2025 12:47 PM EDT [facility] Monocyte % 9.0 % 01/30/2025 12:47 PM EDT [facility] Eosinophil % 7.5 % 01/30/2025 12:47 PM EDT [facility] Basophil % 0.6 % 01/30/2025 12:47 PM EDT [facility] Neutrophil # 9.39(H) 1.50 - 7.80 10*3/uL 01/30/2025 12:47 PM EDT [facility] Immature Grans # 0.09(H) <=0.03 10*3/uL 01/30/2025 12:47 PM EDT [facility] Lymphocyte # 2.50 0.85 - 3.90 10*3/uL 01/30/2025 12:47 PM EDT [facility] Monocyte # 1.30(H) 0.20 - 0.95 10*3/uL 01/30/2025 12:47 PM EDT [facility] Eosinophil # 1.10(H) 0.02 - 0.50 10*3/uL 01/30/2025 12:47 PM EDT [facility] Basophil # 0.10 0.00 - 0.20 10*3/uL 01/30/2025 12:47 PM EDT [facility] nRBC % 0.0 /100 WBCs 01/30/2025 12:47 PM EDT [facility] nRBC # <0.01 <0.01 10*3/uL 01/30/2025 12:[address] [facility] Blood Structure of peripheral vein / Unknown Venipuncture / Unknown 01/30/2025 12:26 PM EDT 01/30/2025 12:38 PM EDT us Shashank Aguilar MD LAB BLOOD ORDERABLES Fauzia guzman Result [facility] [address] [place] [address], * (ABNORMAL) Alisha-Fink Virus VCA Antibody Panel (01/30/2025 12:26 PM EDT) EBV Viral Capsid Ag Ab (IGM) <36.00 U/mL 01/30/2025 9:20 PM EDT [facility] Comment: U/mL Interpretation ---- <36.00 Negative 36.00-43.99 Equivocal >43.99 Positive EBV Viral Capsid Ag Ab (IGG) >750.00(H) U/mL 01/30/2025 9:20 PM Sococ[facility] Comment: U/mL Interpretation ---- <18.00 Negative 18.00-21.99 Equivocal >21.99 Positive EBV Nuclear Ag Ab 212.00(H) U/mL 025 9:20 PM EDT [facility] Comment: U/mL Interpretation ---- <18.00 Negative 18.00-21.99 Equivocal >21.99 Positive Interpretation: See Comments 01/30/2025 9:20 PM EDT [facility] Comment: Suggestive of a past Alisha-Fink virus infection. In infants, a similar pattern may occur as a result of passive maternal transfer of antibody. Blood Structure of peripheral vein / Unknown Venipuncture / Unknown 01/30/2025 12:26 PM EDT 01/30/2025 12:37 PM EDT Narrative TERESA MARCOS - 01/30/2025 9:20 PM EDT [facility] Received Date:[id number] Shashank Aguilar MD LAB BLOOD ORDERABLES Fauzia l Result [facility] [address], [place] [address], [place] [phone] [facility] [address], [place] [address], [place] [phone] * Hepatitis C Antibody w/Reflex to PCR (01/30/2025 12:26 PM EDT) Hepatitis C Antibody NON-REACT NICKIE NON-REACT NICKIE 01/31/2025 7:08 AM EDT [facility] Comment: HCV antibody was non-reactive. There is no laboratory evidence of HCV infection. In most cases, no further action is required. However, if recent HCV exposure is suspected, a test for HCV RNA (test code 93905) is suggested. For additional information please refer to http://education.[employer]/faq/XHN26w3 (This link is being provided for informational/ educational purposes only.) Blood Structure of peripheral vein / Unknown Venipuncture / Unknown 01/30/2025 12:26 PM EDT 01/30/2025 12:38 PM EDT Narrative [facility] - 01/31/2025 7:08 AM EDT [facility] Received Date:[id number] Shashank Aguilar MD LAB BLOOD ORDERABLES Fauzia l Result [facility] [address], [place] [address], [place] [phone] [facility] [address], [place] [address], [place] [phone] * (ABNORMAL) Hepatitis A Antibody, Total (01/30/2025 12:26 PM EDT) Hepatitis A Ab, Total REACTIVE( A) NON-REACT NICKIE 01/31/2025 5:10 AM EDT [facility] Comment: For additional information, please refer to http://Cals[employer]/faq/OHH900 (This link is being provided for informational/ educational purposes only.) Blood Structure of peripheral vein / Unknown Venipuncture / Unknown 01/30/2025 12:26 PM EDT 01/30/2025 12:37 PM EDT Narrative [facility] - 01/31/2025 5:10 AM EDT [facility] Received Date: Shashank Aguilar MD LAB BLOOD ORDERABLES Fauzia l Result [facility] [address], [place] [address], [facility] [address], [place] [address], * Hepatitis B Core Antibody, Total (01/30/2025 12:26 PM EDT) Hepatitis B Core Ab Total NON-REACT NICKIE NON-REACT NICKIE 01/30/2025 11:48 PM EDT [facility] Comment: For additional information, please refer to http://Calsys.[employer]/faq/BUC402 (This link is being provided for informational/ educational purposes only.) Blood Structure of peripheral vein / Unknown Venipuncture / Unknown 01/30/2025 12:26 PM EDT 01/30/2025 12:38 PM EDT Narrative [facility] - 01/30/2025 11:48 PM EDT [facility] Received Date: Shashank Aguilar MD LAB BLOOD ORDERABLES Fauzia l Result [facility] 200 [facility] 3rd Floor, [place] [address], [place] [phone] [facility] 200 [facility] 3rd Floor, [place] [address], [place] [phone] * ABO/Rh Blood Type (01/30/2025 12:26 PM EDT) ABO Blood Type O 01/30/2025 1:11 PM EDT [facility] RH Type Positive 01/30/2025 1:11 PM EDT [facility] Blood Structure of peripheral vein / Unknown Venipuncture / Unknown 01/30/2025 12:26 PM EDT 01/30/2025 12:38 PM EDT Shashank Aguilar MD LAB BLOOD BANK TEST ORDER FANTA Final Result [facility] [address] [place] [address], [place] [phone] * HIV-1/2 Antigen/Antibodies 4th Generation w/Reflex (01/30/2025 12:26 PM EDT) HIV Final Interp HIV NEGATIVE 01/30/2025 7:46 PM EDT [facility] Comment: HIV-1 antigen and HIV-1/HIV-2 antibodies were not detected. There is no laboratory evidence of HIV infection. Blood Structure of peripheral vein / Unknown Venipuncture / Unknown 01/30/2025 12:26 PM EDT 01/30/2025 12:38 PM EDT Narrative [facility] - 01/30/2025 7:46 PM EDT [facility] Received Date: Shashank Aguilar MD LAB BLOOD ORDERABLES Fauzia l Result Performing Organization Address City/[facility]/ZIP Co de Phone Number [facility] [address], [place] [address], [facility] [address], [facility] [place] [address], * Hepatitis B Surface Antibody (01/30/2025 12:26 PM EDT) Hepatitis B Surface Ab Immunity, Qn 160 > OR = 10 mIU/mL 01/30/2025 7:31 PM EDT [facility] Comment: PATIENT HAS IMMUNITY TO HEPATITIS B VIRUS. For additional information, please refer to http://Calsys.[employer]/faq/FVU080 (This link is being provided for informational/ educational purposes only). Blood Structure of peripheral vein / Unknown Venipuncture / Unknown 01/30/2025 12:26 PM EDT 01/30/2025 12:37 PM EDT Narrative [facility] - 01/30/2025 7:31 PM EDT [facility] Received Date: Shashank Aguilar MD LAB BLOOD ORDERABLES Fauzia l Result Performing Organization Address City/[facility]/ZIP Co de Phone Number TERESA MARCOS [address], [place] [address], [facility] [address], [place] [address], * Hepatitis B Surface Antigen w/Confirmation (01/30/2025 12:26 PM EDT) Hepatitis B Surface Antigen NON-REACT NICKIE NON-REACT NICKIE 01/30/2025 11:43 PM EDT [facility] Comment: For additional information, please refer to http://Calsys.[employer]/faq/LFE319 (This link is being provided for informational/ educational purposes only.) Blood Structure of peripheral vein / Unknown Venipuncture / Unknown 01/30/2025 12:26 PM EDT 01/30/2025 12:37 PM EDT Narrative [facility] MARCOS - 01/30/2025 11:43 PM EDT [facility] Received Date:[id number] Shashank Aguilar MD LAB BLOOD ORDERABLES Fauzia l Result [facility] [address], [place] [address], [place] [address], [place] [address], * Cytomegalovirus Antibody, IgG (01/30/2025 12:26 PM EDT) [facility] Cytomegalovirus Antibody (IgG) <0.60 U/mL 01/31/2025 1:20 AM EDT [facility] Comment: U/mL Interpretation ----- <0.60 Negative 0.60-0.69 Equivocal > or = 0.70 Positive A positive result indicates that the patient has antibody to CMV. It does not differentiate between an active or past infection. Blood Structure of peripheral vein / Unknown Venipuncture / Unknown 01/30/2025 12:26 PM EDT 01/30/2025 12:37 PM EDT Narrative TERES[facility] MARCOS - 01/31/2025 1:20 AM EDT [facility] Received Date:[id number] Shashank Aguilar MD LAB BLOOD ORDERABLES Fauzia l Result [facility] [address], [place] [address], [facility] [address], [place] [address], * PTT (01/30/2025 12:26 PM EDT) aPTT 25.5 23.0 - 32.0 Seconds 01/30/2025 1:02 PM EDT [facility] Comment: Current PTT reagent is not sensitive to detect all Lupus Anticoagulant (LA) Inhibitor Cases. If a LA is suspected, please order a Lupus Anticoagulation w/ Reflex Test which is performed at [facility] in [place], [place]. Blood Structure of peripheral vein / Unknown Venipuncture / Unknown 01/30/2025 12:26 PM EDT 01/30/2025 12:38 PM EDT Shashank Aguilar MD LAB BLOOD ORDERABLES Fauzia guzman Result Performing Organization Address City/[facility] Co de Phone Number [facility] [address] [place] [address], [place] * Protime-INR (01/30/2025 12:26 PM EDT) Pathologist [facility] PT 9.9 9.6 - 12.4 Seconds 01/30/2025 1:[address] [facility] INR 0.9 0.9 - 1.1 01/30/2025 1:[address] [facility] Comment:The optimal therapeu tic INR range for patients treated with Vitamin K antagonists (VKAS, e.g., Warfarin) is 2.0 to 3.5. Discuss the desired range with your doctor/care team. Blood Structure of peripheral vein / Unknown Venipuncture / Unknown 01/30/2025 12:26 PM EDT 01/30/2025 12:38 PM EDT Shashank Aguilar MD LAB BLOOD ORDERABLES Fauzia l Result Performing Organization Address [facility]/ZIP Co de Phone Number [facility] [address] [place] [address], [place] * Varicella Zoster Antibody, IgG (01/30/2025 12:26 PM EDT) Pathologist [facility] Varicella Zoster Virus Antibody 6.37 S/CO 01/31/2025 1:21 AM EDT [facility] Comment: Signal to Cut-off S/CO Interpretation --------- <1.00 Negative - Antibody not detected > or = 1.00 Positive - Antibody detected A positive result indicates that the patient has antibody to VZV but does not differentiate between an active or past infection. The clinical diagnosis must be interpreted in conjunction with the clinical signs and symptoms of the patient. This assay reliably measures immunity due to previous infection but may not be sensitive enough to detect antibodies induced by vaccination. Thus, a negative result in a vaccinated individual does not necessarily indicate susceptibility to VZV infection. A more sensitive test for vaccination-induced immunity is Varicella Zoster Virus Antibody Immunity Screen, ACIF. Blood Structure of peripheral vein / Unknown Venipuncture / Unknown 01/30/2025 12:26 PM EDT 01/30/2025 12:38 PM EDT Narrative [facility] 01/31/2025 1:21 AM EDT [facility] Received Date: Shashank Aguilar MD LAB BLOOD ORDERABLES Fauzia l Result [facility] [address], [place] [address], [place] [phone] [facility] [address], [place] [address], [place] [phone] * (ABNORMAL) BUN (01/30/2025 12:26 PM EDT) BUN 44(H) 7 - 23 mg/dL 01/30/2025 1:08 PM EDT [facility] Blood Structure of peripheral vein / Unknown Venipuncture / Unknown 01/30/2025 12:26 PM EDT 01/30/2025 12:38 PM EDT Shashank Aguilar MD LAB BLOOD ORDERABLES Fauzia l Result [facility] [address] [place] [address], [place] * ALT (01/30/2025 12:26 PM EDT) Pathologist [facility] ALT 12 10 - 40 U/L 01/30/2025 1:08 PM EDT [facility] Blood Structure of peripheral vein / Unknown Venipuncture / Unknown 01/30/2025 12:26 PM EDT 01/30/2025 12:38 PM EDT Shashank Aguilar MD LAB BLOOD ORDERABLES Fauzia l Result Performing Organization Address [facility]/ZIP Co de Phone Number [facility] [address] [place] [address], [place] * AST (01/30/2025 12:26 PM EDT) Pathologist [facility] AST 11 10 - 40 U/L 01/30/2025 1:08 PM EDT [facility] Blood Structure of peripheral vein / Unknown Venipuncture / Unknown 01/30/2025 12:26 PM EDT 01/30/2025 12:38 PM EDT Shashank Aguilar MD LAB BLOOD ORDERABLES Fauzia l Result Performing Organization Address City/[facility]/ZIP Co de Phone Number [facility] [address] [place] [address], [place] * PSA (01/30/2025 12:26 PM EDT) Pathologist [facility] PSA 1.59 <=4.00 ng/mL 01/30/2025 1:13 PM EDT [facility] Comment: The total PSA value from this assay system is standardized against the WHO standard. The test result will be slightly lower (< 3 %) when compared to the equimolar-standardized total PSA(Jana Roberts). Comparison of Serial PSA results should be interpreted with this fact in mind. PSA level, regardless of value should not be interpreted as absolute evidence of the presence or absence of disease. This test was performed using Lizette chemiluminescent method. Values obtained by different assay methods cannot be used interchangeably. Blood Structure of peripheral vein / Unknown Venipuncture / Unknown 01/30/2025 12:26 PM EDT 01/30/2025 12:36 PM EDT Shashank Aguilar MD LAB BLOOD ORDERABLES Fauzia l Result [facility] [address] [place] [address], * (ABNORMAL) Phosphorus (01/30/2025 12:26 PM EDT) Phosphorus 6.0(H) 2.5 - 4.5 mg/dL 01/30/2025 1:08 PM EDT [facility] Blood Structure of peripheral vein / Unknown Venipuncture / Unknown 01/30/2025 12:26 PM EDT 01/30/2025 12:38 PM EDT Shashank Aguilar MD LAB BLOOD ORDERABLES Fauzia l Result [facility] [address] [place] [address], * (ABNORMAL) PTH, Intact (without Calcium) (01/30/2025 12:26 PM EDT) Parathyroid Hormone, Intact 694(H) 16 - 77 pg/mL 01/30/2025 11:43 PM EDT [facility] Comment: Interpretive Guide Intact PTH Calcium ------- Normal Parathyroid Normal Normal Hypoparathyroidism Low or Low Normal Low Hyperparathyroidism Primary Normal or High High Secondary High Normal or Low Tertiary High High Non-Parathyroid Hypercalcemia Low or Low Normal High Blood Structure of peripheral vein / Unknown Venipuncture / Unknown 01/30/2025 12:26 PM EDT 01/30/2025 12:37 PM EDT Андрей MARCOS - 01/30/2025 11:43 PM EDT [facility] Received Date:[id number] Shashank Aguilar MD LAB BLOOD ORDERABLES Fauzia l Result Performing Organization Address City/State/[facility] Co de Phone Number TER[facility]A MARCOS 200 [facility] 3rd Floor, [place] [address], [facility] 200 [facility] 3rd Floor, [place] [address], * (ABNORMAL) Hemoglobin A1c (01/30/2025 12:26 PM EDT) Hemoglobin A1C 6.9(H) <5.7 % 01/30/2025 7:32 PM EDT [facility] Comment: For someone without known diabetes, a hemoglobin A1c value of 6.5% or greater indicates that they may have diabetes and this should be confirmed with a follow-up test. For someone with known diabetes, a value <7% indicates that their diabetes is well controlled and a value greater than or equal to 7% indicates suboptimal control. A1c targets should be individualized based on duration of diabetes, age, comorbid conditions, and other considerations. Currently, no consensus exists regarding use of hemoglobin A1c for diagnosis of diabetes for children. eAG (MG/DL) 151 mg/dL 01/30/2025 7:32 PM EDT [facility] eAG (MMOL/L) 8.4 mmol/L 01/30/2025 7:32 PM EDT [facility] Blood Structure of peripheral vein / Unknown Venipuncture / Unknown 01/30/2025 12:26 PM EDT 01/30/2025 12:37 PM EDT Андрей MARCOS - 01/30/2025 7:32 PM EDT [facility] Received Date:[id number] Shashank Aguilar MD LAB BLOOD ORDERABLES Fauzia l Result [facility] MARCOS 200 [facility] 3rd Floor, [place] [address], [place] [phone] [facility] 200 [facility] 3rd Floor, [place] [address], [place] [phone] * (ABNORMAL) Creatinine (01/30/2025 12:26 PM EDT) Creatinine 6.17(H) 0.60 - 1.30 mg/dL 01/30/2025 1:08 PM EDT [facility] eGFR 10(L) >=60 mL/min/1 .73m2 01/30/2025 1:08 PM EDT [facility] Comment:The estimated glomer ular filtration rate (eGFR) is calculated using a new formula developed by the NKF-ASN task force to eliminate race-based correction factors. The new formula uses serum/plasma creatinine, age, and gender to determine eGFR. A value below 60mls/min might indicate kidney disease and will be flagged. For additional information, see Robledo et al, Am J Kidney Dis. 2021;79(2):268- 288, A Unifying Approach for GFR estimation: Recommendations of the NKF-ASN Task Force on Reassessing the Inclusion of Race in Diagnosing Kidney Disease . Blood Structure of peripheral vein / Unknown Venipuncture / Unknown 01/30/2025 12:26 PM EDT 01/30/2025 12:38 PM EDT Shashank Aguilar MD LAB BLOOD ORDERABLES Fauzia l Result [facility] [address] [place] [address], * Calcium (01/30/2025 12:26 PM EDT) Calcium 9.2 8.6 - 10.5 mg/dL 01/30/2025 1:08 PM EDT [facility] Blood Structure of peripheral vein / Unknown Venipuncture / Unknown 01/30/2025 12:26 PM EDT 01/30/2025 12:38 PM EDT Shashank Aguilar MD LAB BLOOD ORDERABLES Fauzia l Result Performing Organization Address City/[facility]/ZIP Co de Phone Number [facility] [address] [place] [address], [place] * Bilirubin, Direct (01/30/2025 12:26 PM EDT) Bilirubin, Direct 0.1 <=0.4 mg/dL 01/30/2025 1:08 PM EDT [facility] Blood Structure of peripheral vein / Unknown Venipuncture / Unknown 01/30/2025 12:26 PM EDT 01/30/2025 12:38 PM EDT Shashank Aguilar MD LAB BLOOD ORDERABLES Fauzia l Result Performing Organization Address [facility]/ZIP Co de Phone Number [facility] [address] [place] [address], [place] * Bilirubin, Total (01/30/2025 12:26 PM EDT) Bilirubin, Total 0.4 0.2 - 1.2 mg/dL 01/30/2025 1:08 PM EDT [facility] Blood Structure of peripheral vein / Unknown Venipuncture / Unknown 01/30/2025 12:26 PM EDT 01/30/2025 12:38 PM EDT Shashank Aguilar MD LAB BLOOD ORDERABLES Fauzia l Result [facility] [address] [place] [address], [place] * Albumin (01/30/2025 12:26 PM EDT) Albumin 3.7 3.5 - 5.2 g/dL 01/30/2025 1:08 PM EDT [facility] Blood Structure of peripheral vein / Unknown Venipuncture / Unknown 01/30/2025 12:26 PM EDT 01/30/2025 12:38 PM EDT us Shashank Aguilar MD LAB BLOOD ORDERABLES Fauzia guzman Result [facility] [address] [place] [address], from Last 3 Months Insurance [place] Advance Directives Documents on File Type Date Recorded 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
--- OUTSIDE RECORDS SUMMARY | 2025-02-25 21:04 | XMS_ITS | Encounter Summary ---
Author Organization [facility] Address [address] [place] [address] Care Team Providers Care Music Historian Name Role Phone Deep Pruitt JOHN Primary Care Provider Encounter Details Date Type Department Care Team (Late st Contact Info) Description 01/02/2017 Scanned Document [facility] [address] [place], [place] [phone] Francisco Veloz PA [address] [place] [address] Social History Tobacco Use Types [...] as of this encounter Care Teams Music Historian Relationship Specialty Start Date End Date Deep Pruitt APRN PCP - General 05/22/19 documented as of this encounter
--- OUTSIDE RECORDS SUMMARY | 2025-02-25 21:04 | XMS_ITS | Encounter Summary ---
Author Organization [facility] Address [address] [place] [address] Care Team Providers Care Load Out Worker Name Role Phone Romelia Pruittian Niko LOPEZ Primary Care Provider [phone] Reason for Visit * Reason Onset Date Comments Medication Refill 11/19/2021 Encounter Details Date Type Department Care Team (Late st Contact Info) Description 11/19/[address] [facility] [address] [place] [address] [phone] Carlos Eduardo Joyner MD [address] [place] [phone] Medication Refill Social History Tobacco Use [...] Score 0 11/17[facility]2021 [facility]ational Stress [...] documented as of this encounter Care Teams Load Out Worker Relationship Specialty Start Date End Date Deep Pruitt APRN PCP - General 05/22/19 documented as of this encounter
--- OUTSIDE RECORDS SUMMARY | 2025-02-25 21:04 | XMS_ITS | Encounter Summary ---
Author Organization [facility] Address [address] [place] [address] Care Team Providers Care Aluminum Sheet Cutter Name Role Phone Deep Pruitt APRN Primary Care Provider Reason for Visit * Reason Comments Medication Refill Encounter Details Date Type Department Care Team ([facility] st Contact Info) Description 05/13/2020 Refill [facility] [employer] [address] [employer] [place], [place] [address] Deep Pruitt APRN [address] [place] [address] Medication Refill Social History Tobacco [...] Answer Date Recorded PHQ-2 Score 0 03/13/2020 [facility] [place] of Occupat ional Health - Occupational [...] documented as of this encounter Care Teams Aluminum Sheet Cutter Relationship Specialty Start Date End Date Deep Pruitt APRN PCP - General 05/22/19 documented as of this encounter
--- OUTSIDE RECORDS SUMMARY | 2025-02-25 21:04 | XMS_ITS | Encounter Summary ---
Author Organization [facility] Address [address] [place] [address] Care Team Providers Care Header Up Name Role Phone Deep Pruitt APRN Primary Care Provider Reason for Visit * Reason Comments Medication Problem Encounter Details Date Type Department Care Team ([facility] st Contact Info) Description 12/21/2021 Refill [facility] [address] [place] [address] Deep Pruitt APRN [address] [place] [address] Medication Problem Social History Tobacco [...] Date Recorded PHQ-2 Total Score 4 12/20/2021 [facility] of Occupat ional Health - [...] updated information the water pill. Call back [phone] * Telephone Encounter - Sarah Newman - 12/21/2021 1:05 PM EDT Best contact: [phone] Patient Sissy called and stated that she contacted [facility] on and they informed that the [...]
--- OUTSIDE RECORDS SUMMARY | 2025-02-25 21:04 | XMS_ITS | Encounter Summary ---
Author Organization [facility] Address [address] [place] [address] Care Team Providers Care Requirements Manager Name Role Phone ChardonDeep medina Niko LOPEZ Primary Care Provider [phone] Reason for Visit * Reason Comments Medication Refill Encounter Details Date Type Department Care Team ([facility] st Contact Info) Description 04/07/2021 Refill [facility] [address] [facility] [address] [place] [phone] Zena Hines PA [address] [place] [phone] Medication Refill Social History Tobacco Use [...] PHQ-2 Total Score 1 03/24/2021 [facility] of Occupat ional Health - [...] seeing Zena Hines for DM management at [facility]. Nate, Katrin documented in this encounter Plan [...] documented as of this encounter Care Teams Requirements Manager Relationship Specialty Start Date End Date Deep Pruitt APRN PCP - General 05/22/19 documented as of this encounter
--- OUTSIDE RECORDS SUMMARY | 2025-02-25 21:04 | XMS_ITS | Encounter Summary ---
Author Organization [facility] Address [address] [place] [address] Care Team Providers Care Focused Factory Manager Name Role Phone Deep Pruitt JOHN Primary Care Provider Encounter Details Date Type Department Care Team (Late st Contact Info) Description 02/20/2017 Scanned Document [facility] [address] [place] [address] Francisco Veloz PA [address] [place] [phone] Social History Tobacco Use Types Packs/Day [...] documented as of this encounter Care Teams Focused Factory Manager Relationship Specialty Start Date End Date Deep Pruitt APRN PCP - General 05/22/19 documented as of this encounter
--- OUTSIDE RECORDS SUMMARY | 2025-02-25 21:04 | XMS_ITS | Encounter Summary ---
Author Organization [facility] Address [address] [place] [address] Care Team Providers Care Mechanic Chief Name Role Phone Sonal Deep Niko LOPEZ Primary Care Provider [phone]- [phone] Reason for Visit * Reason Comments Medication Refill Encounter Details Date Type Department Care Team ([facility] st Contact Info) Description 05/03/2021 Refill [facility] [address] [place] [phone] Aliya Pond, [address] [address] Medication Refill Social History Tobacco [...] Score 0 04/21/2021 [facility] - [...] documented as of this encounter Care Teams Mechanic Chief Relationship Specialty Start Date End Date Deep Pruitt APRN PCP - General 05/22/19 documented as of this encounter
--- OUTSIDE RECORDS SUMMARY | 2025-02-25 21:04 | XMS_ITS | Encounter Summary ---
Author Organization [facility] Address [address] [place] [address] Care Team Providers Care Case Advocate Name Role Phone Sonal Deep Niko LOPEZ Primary Care Provider [phone]- [phone] Reason for Visit * Reason Comments Medication Refill Encounter Details Date Type Department Care Team ([facility] st Contact Info) Description 04/12/2021 Refill [facility] [address] [place] [phone] Aliya Pond, [address] [address] Medication Refill Social History Tobacco [...] Score 1 03/24/2021 [facility] [...] documented as of this encounter Care Teams Case Advocate Relationship Specialty Start Date End Date Deep Pruitt APRN PCP - General 05/22/19 documented as of this encounter
--- OUTSIDE RECORDS SUMMARY | 2025-02-25 21:04 | XMS_ITS | Encounter Summary ---
Author Organization [facility] Address [address] [place] [address] Care Team Providers Care Director Business Integration Name Role Phone Romelia Pruittian Niko LOPEZ Primary Care Provider Encounter Details Date Type Department Care Team (Late st Contact Info) Description 03/18/2021 Scanned Document [facility] [address] [place] [address] External, Provider Social History Tobacco Use Types [...] Recorded PHQ-2 Total Score 2 03/10/2021 [facility] of Occupat ional [...] as of this encounter Care Teams Director Business Integration Relationship Specialty Start Date End Date Deep Pruitt APRN PCP - General 05/22/19 documented as of this encounter
--- OUTSIDE RECORDS SUMMARY | 2025-02-25 21:04 | XMS_ITS | Encounter Summary ---
Author Organization [facility] Address [address] [place] [address] Care Team Providers Care Utilization Management Nurse Name Role Phone Deep Pruitt APRN Primary Care Provider Reason for Visit * Reason Comments Medication Refill Encounter Details Date Type Department Care Team ([facility] st Contact Info) Description 02/25/2022 Refill [facility] [address] [place], [place] [phone] Deep Pruitt, JOHN [address] [place] [phone] Medication Refill Social History Tobacco Use [...] Date Recorded PHQ-2 Total Score 2 02/17/2022 [facility] of Occupat ional Health - [...] as of this encounter Care Teams Utilization Management Nurse Relationship Specialty Start Date End Date Deep Pruitt APRN PCP - General 05/22/19 documented as of this encounter
--- OUTSIDE RECORDS SUMMARY | 2025-02-25 21:04 | XMS_ITS | Encounter Summary ---
Author Organization [facility] Address [address] [place] [address] Care Team Providers Care Merchandise Presentation Associate Name Role Phone MachiasDeep medina Niko LOPEZ Primary Care Provider Reason for Visit * Reason Comments Medication Refill Encounter Details Date Type Department Care Team ([facility] st Contact Info) Description 05/12/2020 Refill [facility] Nutrition at [address] [facility] [address] [place] [phone] Zena Hines PA [address] [place] [phone] Medication Refill Social History Tobacco Use [...] Answer Date Recorded PHQ-2 Score 0 03/13/2020 [facility] of Occupat ional [...] Pike Please review pt no longer seeing [facility] Wellness Dept for DM management. Katrin [...] documented as of this encounter Care Teams Merchandise Presentation Associate Relationship Specialty Start Date End Date Deep Pruitt APRN PCP - General 05/22/19 documented as of this encounter
--- OUTSIDE RECORDS SUMMARY | 2025-02-25 21:04 | XMS_ITS | Encounter Summary ---
Author Organization [facility] Address [address] [place] [address] Care Team Providers Care Helmet Hat Sweatband Puncher Name Role Phone Sonal Deep Niko LOPEZ Primary Care Provider [phone]- [phone] Reason for Visit * Reason Comments Medication Refill Encounter Details Date Type Department Care Team ([facility] st Contact Info) Description 05/05/2021 Refill [facility] [address] [place] [address] [phone] Aliya Pond, [address] [address] Medication Refill Social History Tobacco [...] Date Recorded PHQ-2 Total Score 0 04/21/2021 [facility] - [...] documented as of this encounter Care Teams Helmet Hat Sweatband Puncher Relationship Specialty Start Date End Date Deep Pruitt APRN PCP - General 05/22/19 documented as of this encounter
--- OUTSIDE RECORDS SUMMARY | 2025-02-25 21:04 | XMS_ITS | Encounter Summary ---
Author Organization [facility] Address [address] [place] [address] Care Team Providers Care Regional Forester Name Role Phone Deep Pruitt JOHN Primary Care Provider Encounter Details Date Type Department Care Team (Late st Contact Info) Description 01/17/2019 Scanned Document [facility] [address] [place], [place] [phone] External, Provider Social History Tobacco Use Types [...] as of this encounter Care Teams Regional Forester Relationship Specialty Start Date End Date Deep Pruitt APRN PCP - General 05/22/19 documented as of this encounter
--- OUTSIDE RECORDS SUMMARY | 2025-02-25 21:04 | XMS_ITS | Encounter Summary ---
Author Organization [facility] Address [address] [place] [address] Care Team Providers Care Run Boat Operator Name Role Phone Deep Pruitt JOHN Primary Care Provider Encounter Details Date Type Department Care Team (Late st Contact Info) Description 04/05/2017 Scanned Document [facility] [address] [place], [place] [phone] Francisco Veloz PA [address] [place] [phone] Social History Tobacco Use Types Packs/Day [...] documented as of this encounter Care Teams Run Boat Operator Relationship Specialty Start Date End Date Deep Pruitt APRN PCP - General 05/22/19 documented as of this encounter
--- OUTSIDE RECORDS SUMMARY | 2025-02-25 21:04 | XMS_ITS | Encounter Summary ---
Author Organization [facility] [employer] [facility] Address [address] [place] [address] Care Team Providers Care Mechanical Test Engineer Name Role Phone Deep Pruitt APRN Primary Care Provider Reason for Visit * Reason Onset Date Comments Medication Refill 11/19/2021 Encounter Details Date Type Department Care Team (Late st Contact Info) Description 11/19/2021 Refill [facility] [address] [facility] [address] [facility] 2nd [place] [address] Yue Dominguez APRN [address] [place] [phone] Medication Refill Social History Tobacco Use Types [...] Date Recorded PHQ-2 Total Score 0 11/17/2021 [facility] of Occupat ional Health [...] as of this encounter Care Teams Mechanical Test Engineer Relationship Specialty Start Date End Date Deep Pruitt APRN PCP - General 05/22/19 documented as of this encounter
--- OUTSIDE RECORDS SUMMARY | 2025-02-25 21:04 | XMS_ITS | Encounter Summary ---
Author Organization [facility] Address [address] [place] [address] Care Team Providers Care Pipe Smoker Machine Operator Name Role Phone Deep Pruitt APRN Primary Care Provider [phone] Reason for Visit * Reason Comments Medication Refill Encounter Details Date Type Department Care Team ([facility] st Contact Info) Description 03/19/2022 Refill [facility] [address] [place], [place] [phone] Deep Pruitt, JOHN [address] [place] [address] Medication Refill Social History Tobacco [...] Date Recorded PHQ-2 Total Score 2 02/17/2022 [facility] of Occupat ional [...] as of this encounter Care Teams Pipe Smoker Machine Operator Relationship Specialty Start Date End Date Deep Pruitt APRN PCP - General 05/22/19 documented as of this encounter
--- OUTSIDE RECORDS SUMMARY | 2025-02-25 21:04 | XMS_ITS | Encounter Summary ---
Author Organization [facility] Address [address] [place] [address] Care Team Providers Care Supervisor Blast Furnace Name Role Phone Deep Pruitt APRN Primary Care Provider Encounter Details Date Type Department Care Team (Late st Contact Info) Description 04/08/[address] [facility] Specimens [address] [place] [address] Isha Brown APRN [address] [place] [address] Persons encountering health services in [...] Date Recorded PHQ-2 Total Score 1 03/24/2021 [facility] - Occupational Stress Questionnaire [...] Date/Time Associated Diagnosis Comments BLOOD GAS, ARTERIAL ([facility]) Routine 04/08/2021 12:44 PM EST documented in this encounter Results * (ABNORMAL) Blood gas, arterial () (04/08/2021 12:44 PM EST) pH Arterial 7.37 7.35 - 7.45 units 04/08/2021 12:54 PM [facility] DEPARTMENT OF LABORATORY MEDICINE pCO2, Arterial 49(H) 32 - 48 mmHg 04/08/20 21 12:54 PM [facility] DEPARTMENT OF LABORATORY MEDICINE pO2, Arterial 65(L) 83 - 108 mmHg 04/08/2021 12:54 PM [facility] DEPARTMENT OF LABORATORY MEDICINE O2 Sat, Arterial 89(L) 94 - 98 % 04/08/20 12:54 PM [facility] DEPARTMENT OF LABORATORY MEDICINE Calculated HCO3, Arterial 27.5 21.0 - 28.0 mmol/L 04/08/2021 12:54 PM [facility] DEPARTMENT OF LABORATORY MEDICINE Base Excess, Arterial 2 -2 - 3 mmol/L 04/08/2021 12:54 PM [facility] DEPARTMENT OF LABORATORY MEDICINE Patient Temperature 37.0 Celsius 04/08/2021 12:54 PM EST [facility] DEPARTMENT OF LABORATORY MEDICINE FIO2 21 % 04/08/2021 12:54 PM EST [facility] DEPARTMENT OF LABORATORY MEDICINE Blood, Arterial 04/08/2021 1 2:44 PM EST 04/08/2021 12:45 PM EST us Isha Brown SIMULATION ANALYST LAB BLOOD ORDERABL ES Final Result Performing Organization Address City/State/[facility] de Phone Number [facility] DEPARTMENT OF LABORATORY MEDICINE [address] [place] [address] documented in this encounter Visit Diagnoses Diagnosis [...] as of this encounter Care Teams Supervisor Blast Furnace Relationship Specialty Start Date End Date Deep Pruitt APRN PCP - General 05/22/19 documented as of this encounter
--- OUTSIDE RECORDS SUMMARY | 2025-02-25 21:04 | XMS_ITS | Encounter Summary ---
Author Organization [facility] Address [address] [place] [address] Care Team Providers Care Tractor Driver Teamster Name Role Phone Deep Pruitt JOHN Primary Care Provider [phone] Reason for Visit * Reason Comments Medication Refill Encounter Details Date Type Department Care Team (Late st Contact Info) Description 12/03/2021 Refill [facility] Podiatry at [address] [place] [address] [phone] Arben Fountain, [employer] [address] [place] [address] Medication Refill Social History Tobacco [...] Total Score 0 11/17/2021 [facility] - Occupational Stress Questionnaire Answer Date [...] Diagnosis Diabetic foot (HC Code) (HC CODE) Type II or unspecified 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
--- OUTSIDE RECORDS SUMMARY | 2025-02-25 21:04 | XMS_ITS | Encounter Summary ---
Author Organization [facility] Address [address] [place] [address] Care Team Providers Care Meeting/Event Planner Name Role Phone Romelia Pruittian Niko LOPEZ Primary Care Provider [phone] Reason for Visit * Reason Onset Date Comments Medication Refill 11/10/2021 Encounter Details Date Type Department Care Team (Late st Contact Info) Description 11/10/2021 Refill [facility] [address] [facility] [address] [place] [phone] Anahi Rossi, JOHN [address] [place] [phone] Medication Refill Social History Tobacco Use [...] documented as of this encounter Care Teams Meeting/Event Planner Relationship Specialty Start Date End Date Deep Pruitt APRN PCP - General 05/22/19 documented as of this encounter
--- OUTSIDE RECORDS SUMMARY | 2025-02-25 21:04 | XMS_ITS ---
Author Organization [employer] Address [address] [facility] 7t [place] [address] Care Team Providers Care Wire Weaver Cloth Name Role Phone Katrin Santoyo MD Primary Care Pro vider Edison Vieira MD Unavailable [phone] Joe Devi MD Unavailable [phone] Chuy Mcmanus MD Unavailable Sveta Lazaro RN Unavailable [phone] Leslie Kline Unavailable CM Complex Status:Outreach In Progress (Enrolling) Start date:11/29/2024 Enrollment reason:ADT Feed Overview ADT-[facility] ED 11/28/24 Case Team Name Relationship Phone Sveta Lazaro RN(Responsible Staff) Registered Nurse [phone] Continued Care and Services Coordination
--- OUTSIDE RECORDS SUMMARY | 2025-02-25 21:05 | XMS_ITS | Encounter Summary ---
Author Organization [facility] [employer] [facility] Address [address] [place] [address] Care Team Providers Care Medical Accounting Clerk Name Role Phone Deep Pruitt APRN Primary Care Provider Reason for Visit * Reason Onset Date Comments Medication Refill 10/12/2021 Encounter Details Date Type Department Care Team (Late st Contact Info) Description 10/12/2021 Refill [facility] [address] [facility] [address] [facility] 2nd [place] [address] Taylor Malagon, [facility] [address] [place] [phone] Medication Refill Social History Tobacco Use Types [...] 0 10/12/2021 [facility] of Occupat ional [facility] - Occupational Stress Questionnaire Answer Date Recorded [...] as of this encounter Care Teams Medical Accounting Clerk Relationship Specialty Start Date End Date Deep Pruitt APRN PCP - General 05/22/19 documented as of this encounter
--- OUTSIDE RECORDS SUMMARY | 2025-02-25 21:05 | XMS_ITS | Encounter Summary ---
Author Organization [facility] Address [address] [place] [address] Care Team Providers Care Pile Fabric Knitter Name Role Phone Deep Pruitt JOHN Primary Care Provider Encounter Details Date Type Department Care Team (Late st Contact Info) Description 11/22/2017 Scanned Document [facility] [address] [place], [place] [phone] Francisco Veloz PA [address] [place] [address] Social History Tobacco Use Types [...] documented as of this encounter Care Teams Pile Fabric Knitter Relationship Specialty Start Date End Date Deep Pruitt APRN PCP - General 05/22/19 documented as of this encounter
--- OUTSIDE RECORDS SUMMARY | 2025-02-25 21:05 | XMS_ITS | Encounter Summary ---
Author Organization [facility] Address [address] [place] [address] Care Team Providers Care Transmission Worker Name Role Phone LillieDeep medina Niko LOPEZ Primary Care Provider Encounter Details Date Type Department Care Team (Late st Contact Info) Description 02/19/2020 Scanned Document [facility] [address] [place], [place] [phone] Arben Fountain, [address] [place] [address] Social History Tobacco Use Types [...] Answer Date Recorded PHQ-2 Score 2 10/02/2019 [facility] [place] of Occupat ional Health - Occupational Stress [...] documented as of this encounter Care Teams Transmission Worker Relationship Specialty Start Date End Date Deep Pruitt APRN PCP - General 05/22/19 documented as of this encounter
--- OUTSIDE RECORDS SUMMARY | 2025-02-25 21:05 | XMS_ITS | Encounter Summary ---
Author Organization [employer] Address [address] [place] [address] Care Team Providers Care Wax Bleacher Name Role Phone Katrin Santoyo MD Primary Care Pro vider Edison Vieira MD Unavailable [phone] Joe Devi MD Unavailable [phone] Chuy Mcmanus MD Unavailable Sveta Lazaro RN Unavailable [phone] Leslie Kline Unavailable Encounter Details Date Type Department Care Team (Late st Contact Info) Description 02/17/2025 Orders Only [facility] [address], [place] [id number] June Jarvis, ANP [address], [place] [id number] Social History Tobacco Use Types Packs/Day Years [...] Answer Date of Assessment Author Patient Health Questionnaire-2 Score 3 02/18/2025 12:21 PM EDT Ulysses Beavers MA * Little interest or pleasure in doing things Answer Date of Assessment Author More than half the days 02/18/2025 12:21 PM EDT Jose Angel Beavers MA * Feeling down, depressed, or hopeless Answer Date of Assessment Author Several days 02/18/2025 12:21 PM EDT Jose Angel Beavers MA * Trouble falling or staying asleep, or sleeping too much Answer Date of Assessment Author Nearly every day 02/18/2025 12:21 PM EDT Jose Angel Prasad MA * Feeling tired or having little energy Answer Date of Assessment Author Nearly every day 02/18/2025 12:21 PM EDT Jose Angel Prasad MA * Poor appetite or overeating Answer Date of Assessment Author Several days 02/18/2025 12:21 PM EDT Jose Angel Beavers MA * Feeling bad about yourself - or that you are a failure or have let yourself or your family down Answer Date of Assessment Author Several days 02/18/2025 12:21 PM Jose Angel Abdalla MA * Trouble concentrating on things, such as reading the newspaper or watching television Answer Date of Assessment Author Nearly every day 02/18/2025 12:21 PM Jose Angel Turcios MA * Moving or speaking so slowly that other people could have noticed? Or the opposite - being so fidgety or restless that you have been moving around a lot more than usual. Answer Date of Assessment Author Nearly every day 02/18/2025 12:21 PM Jose Angel Turcios MA * Thoughts that you would be better off or hurting yourself in some way Answer Date of Assessment Author Several days 02/18/2025 12:21 PM Jose Angel Abdalla MA * Patient Health Questionnaire-9 Score Answer Date of Assessment Author 18 02/18/2025 12:21 PM Jose Angel Abdalla MA * How difficult have these problems made it for you to do your work, take care of things at home, or get along with other people? Answer Date of Assessment Author Extremely difficult 02/18/2025 12:21 PM Jose Angel Mercedes MA * Over the last 2 weeks, how often have you been bothered by any of the following problems? Question Answer Date of Assessment Author Feeling nervous, anxious, or on edge 2 02/18/2025 12:20 PM Oralia Abdalla MA Not being able to stop or control worrying 1 02/18/2025 12:20 PM Oralia Abdalla MA Worrying too much about different things 3 02/18/2025 12:20 PM Oralia Abdalla MA Trouble relaxing 3 02/18/2025 12:20 PM Jose Angel Abdalla MA Being so restless that it is hard to sit still 2 02/18/2025 12:20 PM Oralia Abdalla MA Becoming easily annoyed or irritable 1 02/18/2025 12:20 PM EDT Oralia Beavers MA Feeling afraid as if something awful might happen 1 02/18/2025 12:20 PM EDT Jose Angel Prasad MA HARESH-7 Total Score 13 02/18/2025 12:20 PM EDT Jose Angel Beavers MA documented as of this encounter Plan of Treatment Not on file documented as of this encounter Goals Goal Patient Goal Type Associated Problems Recent Progress Patient-Stated? Author Blood Pressure < 140/90 Blood Pressure 148/87(2024 12:59 PM EDT) No Nemesios-GambEve sheikh, PharmD Hemoglobin A1c < 7 Result Component 7.1( 2:58 PM EDT) No Whit-Eve Grier, PharmD documented as of this encounter Visit Diagnoses Not on filedocumented in this encounter Additional Health Concerns Assessment Noted Time PHQ-9 Depression Total Score: 21 025 2:47 PM EDT documented as of this encounter Care Teams Wax Bleacher Relationship Specialty Start Date End Date Katrin Santoyo MD [address] [place] [id number] PCP - General Internal Medicine 12/13/22 Edison Vieira MD [address] [place] [id number] Pulmonary Disease 04/07/24 Joe Devi MD [address] [place] [address] [address] [place] [address] Gastroenterology 04/07/24 Chuy Mcmanus MD [address] [place] [phone] Bariatrics 09/25/24 Sveta Lazaro RN [address] [place] [phone] Registered Nurse Family Medicine 11/29/24 Leslie Kline 11/29/24 Carito Roche DNP [address] [place] [address], [address] [place] [address] Nephrology 04/07/24 [facility]14[facility]24 documented as of this encounter
--- OUTSIDE RECORDS SUMMARY | 2025-02-25 21:05 | XMS_ITS | Clinical Summary ---
Author Organization [employer] Address [address] [place] [address] Care Team Providers Care Traverse Rod Assembler Name Role Phone Katrin Santoyo MD Primary Care Pro vider Edison Vieira MD Unavailable [phone] Joe Devi MD Unavailable [phone] Chuy Mcmanus MD Unavailable Sveta Lazaro RN Unavailable [phone] Leslie Kline Unavailable Allergies Active Allergy [...] bedtime 023 Active Blood Glucose Monitoring Suppl ([employer] [place] Lite) w/Device kitIndications: Type 2 diabetes mellitus with diabetic nephropathy, with long-term current use of insulin (HCC) Use to test blood sugar bid dx dm 1 kit Active capsaicin (Capzasin-HP) 0.1 % creamIndication s:Chronic radicular lumbar pain Apply thin layer by topical route up to 4 times daily as needed for pain. 45 g 3 Active Alpha-Lipoic Acid 600 MG capsule TAKE [...] 1 Application. topically Once per day. Active B-D UF III MINI PEN NEEDLES 31G X 5 MM [facility] Use as instructed 100 each Active albuterol (2.5 MG/3ML) 0.083% [...] MORNING 90 tablet 1 025 Active Nebulizers [facility] [place] Use nebulizer as instructed 1 each Active Respiratory Therapy Supplies (Nebulizer/Tubi ng/Mouthpiece) kit To be used with Nebulizer 1 kit Active atorvastatin (Lipitor) 80 MG tablet TAKE 1 TABLET BY MOUTH EVERY DAY 90 tablet 1 025 Active amLODIPine (Norvasc) 5 MG [...] BY MOUTH 3 TIMES A WEEK Active febuxostat (Uloric) 40 MG tablet TAKE [...] capsule by mouth Once per day. Active sodium polystyrene sulfonate (Kayexalate) powder Take 30 g by mouth 1 (one) time. Mix with water and drink once weeklyy Active gabapentin (Neurontin) 100 MG capsule Take 2 capsules (200 mg) by mouth Once per day. 180 capsule 025 2025 Active Advair HFA 230-21 MCG/ACT inhalerIndicati ons:Moderate persistent asthma without complication INHALE 2 PUFFS BY MOUTH TWICE DAILY IN THE MORNING AND AT BEDTIME, RINSE MOUTH AFTER USING. 12 g Active Spiriva Respimat 1.25 MCG/ACT inhalerIndicati ons:Moderate persistent asthma without complication INHALE 2 PUFFS BY MOUTH EVERY DAY IN THE MORNING, RINSE MOUTH AFTER USING. 4 g Active Diclofenac Sodium 1 % gelIndications: Chronic radicular lumbar pain APPLY A THIN LAYER (2 GRAMS) TOPICALLY THREE TIMES DAILY NEEDED FOR PAIN 100 g 1 025 Active omega-3 acid ethyl esters (Lovaza) 1 g capsule TAKE 2 CAPSULES BY MOUTH TWICE DAILY 360 capsule 3 Active insulin lispro (HumaLOG) 100 UNIT/ML injectionIndica tions:Diabetes mellitus, labile (HCC) Inject 2-10 Units under the skin with breakfast, with lunch, and with evening meal. 15 mL 1 Active Lantus SoloStar 100 UNIT/ML penIndications: Diabetes mellitus, labile (HCC) Inject 20 Units under the skin at bedtime. 15 mL 1 Active torsemide (Demadex) 100 MG tablet Take 1 tablet (100 mg) by mouth 2 times daily. 60 tablet 1 Active FREESTYLE LITE test stripIndication s:Diabetes mellitus, labile (HCC) Use to test blood sugar 3 times daily 100 each 12 025 2025 Active FREESTYLE LITE test stripIndication s:Diabetes mellitus, labile (HCC) Use to test blood sugar as directed 100 each 11 Active Lancets miscIndications :Diabetes mellitus, labile (HCC) Use to test blood sugar 3 times daily 100 each Active FreeStyle lancetsIndicati ons:Diabetes mellitus, labile (HCC) 1 each by Other route before breakfast, before lunch, before evening meal, and at bedtime. Use bid, dx type 2 diabetes 100 each Active Alcohol Swabs 70 % pads Use to test blood sugar 3 times daily 100 each Active Alcohol Swabs (B-D SINGLE USE SWABS REGULAR) pads Apply 1 Units topically 4 times daily. 100 each 11 Active omega-3 acid ethyl esters (Lovaza) 1 g capsule Take 2 capsules (2 g) by mouth 2 times daily. 120 capsule 11 024 2024 Discontinued FreeStyle lancetsIndicati ons:Type 2 diabetes mellitus with diabetic nephropathy, with long-term current use of insulin (HCC) 1 each by Other route before breakfast, before lunch, before evening meal, and at bedtime. Use bid, dx type 2 diabetes 100 each 11 2024 Discontinued(R eorder (will not trigger notification to Pharmacy)) Alcohol Swabs (B-D SINGLE USE SWABS REGULAR) pads Apply 1 Units topically 4 times daily. 100 each 11 024 2024 Discontinued(R eorder (will not trigger notification to Pharmacy)) FREESTYLE LITE test strip Use to test blood sugar as directed 100 each 11 024 2024 Discontinued(R eorder (will not trigger notification to Pharmacy)) Lantus SoloStar 100 UNIT/ML pen Inject 20 Units under the skin at bedtime. 2024 Discontinued(R eorder (will not trigger notification to Pharmacy)) insulin lispro (HumaLOG) 100 UNIT/ML injection INYECTAR 2 A 10 UNIDADES DEBAJO DE LA PIEL ESTER VECES AL LUZ MARIA ANTES DE LAS COMIDAS DE ACUERDO A LA ESCALA DE INSULINA 2024 Discontinued(R eorder (will not trigger notification to Pharmacy)) torsemide (Demadex) 100 MG tablet Take 1 tablet by mouth 2 times daily. 2024 Discontinued(R eorder (will not trigger notification to Pharmacy)) Hospital, Clinic, or Other Facility Administered Medication Ordered Dose Route Frequency Start Date End Date Status Insulin Lispro solution 10 UnitsIndications:Diabetes mellitus, labile (HCC) 10 Units IJ Once 02/17/2025 02/17/2025 En ded Active Problems Problem Noted Date [...] ordered patient will be contacted with results TIA (transient ischemic attack) 01/13/2025 Anemia in ESRD (end-stage renal disease) (CMS/HC C) 01/13/2025 ESRD (end stage renal disease) on dialysis (CMS/ [facility]) 12/26/2024 Moderate cognitive impairment 12/26/2024 Chronic pancreatitis, unspec ified pancreatitis type (CMS/HCC) 08/22/2024 Skin pruritus 08/22/2024 Lipoma 07/10/2024 Assessment & Plan (07/10/2024 2:47 PM EST): I refer patient to surgery Long-term current use of opiate analgesic 2023 Overview (08/13/2024): Medication: Tramadol 50mg Q8H PRN Indication: chronic radicular lumbar pain 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 Vieira Right foot pain [...] lesions. 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 RECOMMENDATIONS / PLAN : -Current [employer] recommendations for treatment of [...] S on 21/02 cm. - Following with [facility] Pulmonology - Dr. [...] told him that it is not a assistant terminal manager med. He will fu w PCP next [...] (12/09/2022): information and pathology of colonospcy in [facility] 09-09-2020 note Hyperlipidemia due to type 2 diabetes mellitus 12/09/2022 01/23/2023 Abnormal gait 12/09/2022 01/23/2023 Overview (12/09/2022): CVA 2017 Asthma, mild 12/09/2022 01/23/2023 Tubular adenoma of colon 12/09/2022 Overview (12/09/2022): Completed a colonoscopy 2020 and had a cecum polyp. Biopsy tubular adenoma. 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 9) with comorbidity (CMS/HCC) 12/09/2022 12/13/2022 Constipation in male 12/09/2022 023 [...] hip joint arthritis 02/07/2019 01/23/2023 Schizoaffective disorder, de pressive type (CMS/HCC) 01/14/2019 05/17/2023 Hypertension 12/10/2018 12/13/2022 Assessment & Plan (12/09/2022 12:54 PM EDT): Refill for losartan sent at patient's request Encounters Date Type Department Care Team Description 02/25/2025 1:00 PM EDT Office Visit [facility] [address] [facility] [place] [address] Vivian Hoyt MD RUQ pain (Primary Dx) 02/25/2025 Orders Only GENERIC EXTERNAL DATA DEPARTMENT Provider, Generic External Data 02/25/2025 Telephone [facility] [address] [facility] [place] [address] Vivian Hoyt MD 02/25/2025 Travel 02/25/2025 Telephone [facility] [address] [place] [address] Katrin Santoyo MD 02/20/[address] [address] Karen Luis, CASIE 02/19/2025 Telephone [facility] [address] [place] [address] Katrin Santoyo MD Ofice note fax over 02/17/2025 2:45 PM EDT Office Visit [facility] [address] [facility] [place] [address] Nupur Couch FNP Preop examination (Primary Dx); Diabetes mellitus, labile ([facility]); Obstructive sleep apnea; Primary hypertension; ESRD (end stage renal disease) on dialysis ([facility]) (HCC) 02/17/2025 Orders Only [facility] [address] [place] [address] June Jarvis ANP 02/17/2025 Travel 02/03/2025 Refill [facility] [address] [place] [address] Katrin Santoyo MD 01/29/[address] [address] Katrin Santoyo MD Pre-op Exam 01/24/[address] [address] Katrin Santoyo MD Chronic radicular lumbar pain 01/14/2025 1:20 PM EDT Office Visit [facility] [address] [place] [phone] Katrin Leroy MD Acute bilateral low back pain without sciatica; Pain of left hip; Acute pain of right knee 01/14/2025 Travel 01/14/[address] [address] Katrin Santoyo MD Nurse Triage 01/14/[address] [address] Katrin Santoyo MD FYI 01/14/2025 Patient Outreach [address] [address] Katrin Santoyo MD Care Management (C3CM- initial assessment/ enrollment. Not available.) 01/13/2025 Patient Outreach [address] [address] Katrin Santoyo MD Care Coordination (CM/CHW appt reminder) 01/08/2025 Patient Outreach [address] [address] Katrin Santoyo MD 12/31/[address] [address] Katrin Santoyo MD Call Back Request 12/28/2024 Refill [facility] [address] [place] [address] Ihsa Thomas DO Moderate persistent asthma without complication 12/26/2024 10:00 AM EDT Telemedicine [address] [address] Katrin Santoyo MD Primary hypertension (Primary Dx); Diabetes mellitus, labile ([facility]); Health care maintenance; ESRD (end stage renal disease) on dialysis ([facility]); Moderate cognitive impairment 12/26/2024 Telephone [facility] [address] [facility] [place] [address] Katrin Santoyo MD 12/26/2024 Telephone [facility] [address] [facility] [place] [address] Katrin Santoyo MD Appointment 12/26/2024 Travel 12/25/2024 Patient Outreach [facility] [address] [facility] [place] [address] Katrin Santoyo MD Transition Of Care (Tcm) (RE: HDF RESCHEDULING ) 12/25/2024 Telephone [facility] [address] [place] [address] Katrin Santoyo MD Hospital Follow-up 12/25/2024 Telephone [facility] [address] [facility] [place] [address] Katrin Santoyo MD chart prep 12/25/[address] [place] [address] Katrin Santoyo MD chartprep 12/25/2024 Patient Outreach [facility] [address] [facility] [place] [address] Katrin Santoyo MD Care Coordination (CM/CHW outreach) 12/24/[address] [place] [address] Katrin Santoyo MD 12/23/2024 Orders Only GENERIC EXTERNAL DATA DEPARTMENT Provider, Generic External Data 12/19/2024 Telephone [facility] [place] [address] Katrin Santoyo MD fyi 12/18/2024 Orders Only GENERIC EXTERNAL DATA DEPARTMENT Provider, Generic External Data 12/13/2024 Patient Outreach [facility] [address] [facility] [place] [address] Katrin Santoyo MD 12/13/2024 Patient Outreach [facility] [address] [place] [phone] Katrin Santoyo MD Transition Of Care (Tcm) (HDF scheduled) 12/12/[address] [address] Katrin Santoyo MD verbal order needed 12/10/[address] [address] Katrin Santoyo MD Durable Medical Equipment 12/10/[address] [address] Katrin Santoyo MD Chronic radicular lumbar pain 12/09/2024 Patient Outreach [address] [address] Katrin Santoyo MD 12/09/2024 Patient Outreach [address] [address] Katrin Santoyo MD 12/06/2024 Patient Outreach [address] [address] Katrin Santoyo MD Care Management (C3CM- initial assessment/ enrollment. Not available.) 12/05/2024 Patient Outreach [address] [address] Katrin Santoyo MD Care Coordination (CM/CHW appt reminder) 12/04/2024 Patient Outreach [facility] [address] [place] [address] Katrin Santoyo MD Transition Of Care (Tcm) (F unscheduled ) 12/04/2024 Patient Outreach [address] [address] Katrin Santoyo MD 12/02/2024 Patient Outreach [address] [address] Katrin Santoyo MD Care Coordination (CM/CHW outreach) 11/29/2024 Patient Outreach [address] [address] Katrin Santoyo MD Care Coordination (CHW chart review) 11/29/2024 Patient Outreach [facility] [address] [place] [address] Katrin Santoyo MD Care Management (C3CM- chart review) 11/29/2024 Patient Outreach [facility] [address] [place] [address] Katrin Santoyo MD 11/28/[address] [address] Katrin Santoyo MD Nurse Triage 11/27/2024 Refill [facility] [address] [place] [address] Katrina Ward NP Bilateral foot pain 11/26/[address] [address] Katrin Santoyo MD fyi 11/26/2024 Patient Outreach [address] [address] Katrin Santoyo MD Transition Of Care (Tcm) (HDF- Unscheduled unable to LVM (Message sent to team nurses and provider for review) ) from Last 3 Months Immunizations Immunization Administration [...] Mass Index 34.12 02/25/2025 12:59 PM EDT Plan of Treatment Health Maintenance Due [...] 03/24/2022, Additional history exists Diabetes: Hemoglobin A1C 05/20/2025 025, 11/01/2024, 08/22/2024, Additional history exists Depression Monitoring 08/19/2025 02/18/2025, 025 Lipid Panel 10/07/2025 10/07/2024, 05/1 08/2023, 05/17/2023, Additional history exists Diabetes: Foot Exam 10/14/2025 10/14/2024, 10/14/2024, 02/12/2024, Additional history exists Alcohol/Substance Use Screening 11/01/2025 11/01/2024 Disability Screening 11/01/2025 11/01/2024 SDOH Screening 11/01/2025 11/01/2024 Tobacco Screening 02/25/2026 02/25/2025 DTaP/Tdap/Td Vaccines (3 - Td or Tdap) [...] Blood Pressure 148/87(2024 12:59 PM EDT) No Eve Guzman PharmD Hemoglobin A1c < 7 Result Component 7.1( 2:58 PM EDT) No Eve Guzman PharmD Procedures Procedure Name Priority Date/Time Associated Diagnosis Comments URINALYSIS, COMPLETE, WITH REFLEX TO CULTURE Routine 02/25/2025 8:15 PM EDT LIPASE Routine 02/25/2025 4:27 PM EDT COMPREHENSIVE METABOLIC PANEL Routine 02/25/2025 4:27 PM EDT HIGH SENSITIVITY TROPONIN I Routine 02/25/2025 4:27 PM EDT ETHANOL Routine 02/25/2025 4:27 PM EDT CBC WITH AUTO DIFFERENTIAL Routine 02/25/2025 4:27 PM EDT POCT GLUCOSE Routine 02/17/2025 4:42 PM EDT Diabetes mellitus, labile (HCC) POCT URINALYSIS DIPSTICK Routine 02/17/2025 4:07 PM EDT Diabetes mellitus, labile (HCC) POCT GLYCATED HEMOGLOBIN, TOTAL Routine 02/17/2025 2:58 PM EDT Diabetes mellitus, labile (HCC) POCT GLUCOSE Routine 02/17/2025 2:57 PM EDT Diabetes mellitus, labile (HCC) XR KNEE 4+ VIEWS RIGHT Routine 2:15 PM EDT Acute pain of right [...] 2-3 VIEWS Routine 11/27/2024 4:43 AM EDT VASC US LOWER EXTREMITY VENOUS DUPLEX BILATERAL Routine 11/25/2024 10:05 AM EDT HEPATITIS C AB W/REFL TO HCV RNA, [...] Relevant to Health Maintenance Results * (ABNORMAL) Urinalysis, Complete, with Reflex to Culture (02/25/2025 8:15 PM EDT) Color Urine Yellow [facility] Appearance Urine Clear [facility] PH 7.0 5.0 - 9.0 [facility] Glucose Urine UA >=1000(A) Negative mg/dL [facility] Urine Blood Trace(A) Negative [facility] Specific [place] - Urine 1.020 1.005 - 1.025 [facility] Urine Protein >=1000 (4+)(A) Neg-Trace mg/dL [facility] Urine Ketones Negative Negative mg/dL [facility] Nitrite Urine Negative Negative [facility] Leukocyte Esterase Urine Negative Negative [facility] RBC Urine 0-2 0 - 2 /HPF [facility] Urine WBC 0-5 0 - 5 /HPF [facility] Urine Squamous Epithelial Cell 0-2 0 - 2 /HPF [facility] Urine Bacteria None Seen None Seen [facility] Hyaline Casts, Urine 0-2 0 - 2 /LPF [facility] 02/25/2025 8:15 PM EDT 02/25/2025 8:17 PM EDT Narrative [facility] - 02/25/2025 8:26 PM EDT [id number], Clean Catch Generic External Data Provider LAB URINE ORDERAB LES Final Result Performing Organization Address [facility] Co de Phone Number [facility] [address] [place] [phone] * High Sensitivity Troponin I (02/25/2025 4:27 PM EDT) [facility] TROPONIN I HIGH SENSITIVITY 21.9 <3.5 - 35.0 ng/L [facility] Comment:The Lamar high sens itivity Troponin-I results should beused in conjunction with other diagnostic information suchas ECG, clinical observations and information, and patientsymptoms to aid in the diagnosis of DC. 02/25/2025 4:27 PM EDT 02/25/2025 4:37 PM EDT Generic External Data Provider LAB BLOOD ORDERAB LES Final Result Performing Organization Address [facility] Co de Phone Number [facility] [address] [place] [phone] * Ethanol (02/25/2025 4:27 PM EDT) Pathologist [facility] ETHANOL (MG/DL) IN SER/PLAS <10 mg/dL [facility] Comment:Serum/plasma ethanol results are to be used formedical/treatment purposes only. 02/25/2025 4:27 PM EDT 02/25/2025 4:37 PM EDT us Generic External Data Provider LAB BLOOD ORDERAB LES Final Result [facility] [address] [place] [phone] [phone] * (ABNORMAL) CBC auto differential (02/25/2025 4:27 PM EDT) Only the most recent of2 resultswithin the time period is included. White Blood Count 14.5(H) 4.8 - 10.8 X10*3/uL [facility] Red Blood Count 4.12(L) 4.60 - 5.80 X10*6/uL [facility] Hemoglobin 11.9(L) 14.0 - 18.0 g/dl [facility] Hematocrit 37.2(L) 42.0 - 52.0 % [facility] Mean Corpuscular Volume 90.3 80.0 - 98.0 fL [facility] Mean Corpuscular Hemoglobin 28.9 27.0 - 33.0 pg [facility] Mean Corpuscular HGB Conc 32.0 31.0 - 36.0 g/dl [facility] Red Cell Distribution Width 14.4 11.0 - 16.0 % [facility] Platelet Count 339 160 - 400 X10*3/uL [facility] Mean Platelet Volume 11.7 9.4 - 12.4 fL [facility] Neutrophils Percent Auto 65.0 45 - 73 % [facility] Imm Gran Pct Auto 0.3 0.0 - 0.4 % [facility] Lymphocytes Percent Auto 16.8(L) 20 - 40 % [facility] Monocytes Percent Auto 9.9 2 - 11 % [facility] Eosinophils Percent Auto 7.4(H) 0 - 4 % [facility] Basophils Percent Auto 0.6 0 - 2 % [facility] NRBC Pct Auto 0.0 0.0 - 0.2 /100WBC [facility] Neutrophils Absolute Auto 9.4(H) 2.0 - 8.3 x10*3/uL [facility] Imm Gran Abs Auto 0.05(H) 0.00 - 0.03 X10*3/uL [facility] Lymphocytes Absolute Auto 2.4 1.2 - 4.9 X10*3/uL [facility] Monocytes Absolute Auto 1.4(H) 0.1 - 1.2 X10*3/uL [facility] Eosinophils Absolute Auto 1.1(H) 0.0 - 0.4 X10*3/uL [facility] Basophils Absolute Auto 0.1 0.0 - 0.2 X10*3/uL [facility] NRBC Abs Auto 0.000 0.0 - 0.012 X10*3/uL [facility] 02/25/2025 4:27 PM EDT 02/25/2025 4:37 PM EDT Generic External Data Provider LAB BLOOD ORDERAB LES Final Result Performing Organization Address [facility]/ZIP Co de Phone Number [facility] [address] [place] [phone] * Lipase (02/25/2025 4:27 PM EDT) Pathologist [facility] Lipase 67 8 - 78 U/L [facility] 02/25/2025 4:27 PM EDT 02/25/2025 4:37 PM EDT Generic External Data Provider LAB BLOOD ORDERAB LES Final Result Performing Organization Address [facility] Co de Phone Number [facility] [address] [place] [phone] * (ABNORMAL) Comprehensive Metabolic Panel (02/25/2025 4:27 PM EDT) Pathologist [facility] Sodium 139 135 - 145 mmol/L [facility] Potassium 4.6 3.3 - 5.1 mmol/L [facility] Chloride 105 96 - 108 mmol/L [facility] Carbon Dioxide 24 22 - 29 mmol/L [facility] Anion Gap 15 12 - 20 [facility] Urea Nitrogen (BUN) 40(H) 9 - 16 mg/dL [facility] Creatinine, Serum 7.17(HH) 0.5 - 1.4 mg/dL [facility] Comment:Critical value for t est(s): CREAT Results called to agatha back by: ADRIEN Person calling: VIKKI Date:02/25/25 Time: 1706 Creatinine Clr Calc Pharmacy 13.5 [facility] Comment:eGFR (calculated fro m the MDRD study equation) and eCrCl(calculated from the Cockcroft-Gault equation) are based ondifferent parameters and may not yield comparable results.If eCrCl result is absurd, please check patient'sheight/weight. Estimated Glomerular Filt Rate 8 [facility] Comment:Chronic Kidney Disea se: Estimated GFR < 60 mL/min/[id number] Kidney Disease: Estimated GFR < 15 mL/min/1.73m2 Glucose 180(H) 60 - 115 mg/dL [facility] Calcium 9.6 8.4 - 10.2 mg/dL [facility] Bilirubin, Total 0.3 0.0 - 1.0 mg/dL [facility] Aspartate Amino Transferase 18 5 - 37 U/L [facility] Alanine Aminotransferase 12 0 - 40 U/L [facility] Total Protein 7.3 6.5 - 8.0 g/dL [facility] Albumin Level 3.9 3.5 - 5.0 g/dL [facility] Alkaline Phosphatase 143(H) 39 - 117 U/L [facility] 02/25/2025 4:27 PM EDT 02/25/2025 4:37 PM EDT us Generic External Data Provider LAB BLOOD ORDERAB LES Final Result [facility] [address] [place] [phone] * (ABNORMAL) POCT Glucose (02/17/2025 4:42 PM EDT) Only the most recent of2 resultswithin the time period is included. Glucose Blood, POC 500(A) 60 - 200 mg/dL Comment:[facility] [employer] Lot # [id number] Lot# Expiration Date 31,126 Blood Capillary blood specimen / Unknown 02/17/2025 4:42 PM EDT Result [facility] POINT OF CARE TEST ENTER/EDIT ORDERABLES Final Result * (ABNORMAL) POCT Urinalysis (02/17/2025 4:07 PM EDT) Color, UA Light Yellow Clarity, UA Clear Glucose, UA Trace Comment:>=1000 Bilirubin, UA Negative Ketones, UA Negative Spec Grav, UA 1.020 Blood, UA Positive(A) Negative, None Detected Comment:small pH, UA 7.5 Protein, UA Trace Comment:>=300mg/dL Urobilinogen, UA 0.2 Leukocytes, UA Negative Negative, Rare, Trace Nitrite, UA Negative Negative, None Detected Appearance, UA Yellow QC Media Lot # [id number] Lot# Expiration Date [id number] Urine (Urine, Random) 02/17/2025 4:07 PM EDT Result [facility] POINT OF CARE TEST ENTER/EDIT ORDERABLES Final Result * (ABNORMAL) POCT Hgb A1c (02/17/2025 2:58 PM EDT) Hemoglobin A1C 7.1(A) 4.0 - 5.7 % QC Media Lot # [id number] Lot# Expiration Date [id number] Blood 02/17/2025 2:58 PM EDT Result [facility] POINT OF CARE TEST ENTER/EDIT ORDERABLES Final Result * XR Knee 4+ Views Right (01/14/2025 2:15 PM EDT) Anatomical Region Laterality Modality Lower Extremities, Knee Right Radiogra [facility] 01/14/2025 2:15 PM EDT Narrative 01/14/2025 2:44 PM EDT [address] XRay Report Signed Patient: Darrel Hagan MR#: [id number] : 1970 Acct:[id number] Age/Sex: 54 / M ADM Date: 01/14/25 Loc: [facility] Attending Dr: Katrin Kong MD Ordering Physician: Katrin Leroy MD Date of Service: 01/14/25 Procedure(s): XR knee RT 4V Accession Number(s): [id number] cc: Katrin Leroy MD Reason for Exam: [...] 01/14/25 1442 DD/ 1415 TD/TT: 01/14/25 1430 Harp Regulator: Procedure Note Donotuseinterpreter, Image - 01/14/[address] [address] XRay Report Signed Patient: Darrel HaagnMR#: [id number] : 1970Acct:[id number] Age/Sex: 54 / MADM Date: 01/14/25 [facility]: Katrin Kong MD Ordering Physician: Katrin Leroy MD Date of Service: 01/14/25 Procedure(s): XR knee RT 4V Accession Number(s): [id number] cc: Katrin Leroy MD Reason for Exam: [...] 01/14/2025 02:42 PM EDT Dictated By: Kin Puryd MD Signed By: <Electronically signed by Kin Purdy MD in OV> 01/14/25 1442 DD/ 1415 TD/TT: 01/14/25 1430 Harp Regulator: us Katrin Kong MD IMG XR PROCEDURES Fin al Result * XR Hip 2 or 3 Views Left (01/14/2025 2:10 PM EDT) Anatomical Region Laterality Modality Lower Extremities, Hip Left Radiograp [facility] 01/14/2025 2:10 PM EDT Narrative 01/14/2025 2:47 PM EDT [address] [address] XRay Report Signed Patient: Darrel Hagan MR#: [id number] : 1970 Acct:[id number] Age/Sex: 54 / M ADM Date: 01/14/25 [facility]: Katrin Kong MD Ordering Physician: Katrin Leroy MD Date of Service: 01/14/25 Procedure(s): XR hip LT min 2V Accession Number(s): [id number] cc: Katrin Leroy MD Reason for Exam: [...] 01/14/25 1443 DD/ 1410 TD/TT: 01/14/25 1430 Harp Regulator: Procedure Note Donotuseinterpreter, Image - 01/14/[address] [address] XRay Report Signed Patient: Darrel HaganMR#: [id number] : 1970Acct:[id number] Age/Sex: 54 / MADM Date: 01/14/25 Loc: [facility] Attending Dr: Katrin Kong MD Ordering Physician: Katrin Leroy MD Date of Service: 01/14/25 Procedure(s): XR hip LT min 2V Accession Number(s): [id number] cc: Katrin Leroy MD Reason for Exam: [...] 01/14/25 1443 DD/ 1410 TD/TT: 01/14/25 1430 Harp Regulator: Katrin Kong MD IMG XR PROCEDURES Fin al Result * XR Lumbar Spine 2-3 Views (01/14/2025 2:09 PM EDT) Only the most recent of2 resultswithin the time period is included. Anatomical Region Laterality Modality Spine, L-spine Radiographic Cierra ging 01/14/2025 2:09 PM EDT Narrative 01/14/2025 2:48 PM EDT [address] [address] XRay Report Signed Patient: Darrel Hagan MR#: [id number] : 1970 Acct:[id number] Age/Sex: 54 / M ADM Date: 01/14/25 Loc: [facility] Attending Dr: Katrin Kong MD Ordering Physician: Katrin Leroy MD Date of Service: 01/14/25 Procedure(s): XR lumbar spine 2-3V Accession Number(s): [id number] cc: Katrin Leroy MD Reason for Exam: [...] 01/14/25 1445 DD/ 1409 TD/TT: 01/14/25 1430 Harp Regulator: Procedure Note Donotuseinterpreter, Image - 01/14/[address] [address] XRay Report Signed Patient: Darrel HaganMR#: [id number] : 1970Acct:[id number] Age/Sex: 54 / MADM Date: 01/14/25 [facility]: Katrin Kong MD Ordering Physician: Katrin Leroy MD Date of Service: 01/14/25 Procedure(s): XR lumbar spine 2-3V Accession Number(s): [id number] cc: Katrin Leroy MD Reason for Exam: [...] 01/14/25 1445 DD/ 1409 TD/TT: 01/14/25 1430 Harp Regulator: us Katrin Kong MD IMG XR PROCEDURES Fin al Result * IR US Guide - Venous Access (12/23/2024 10:30 AM EDT) Anatomical Region Laterality Modality X-Ray Angiograph y 12/23/2024 10:3 0 AM EDT Narrative 12/23/2024 4:44 PM EDT [place] [address] Interventional Radiology Rpt Signed Patient: Darrel Hagan MR#: [id number] : 1970 Acct:[id number] Age/Sex: 54 / M ADM Date: 12/23/24 Loc: [facility] Attending Dr: RENATO Shaver DNP Ordering Physician: Carito Roche DNP, FNP-BC Date of Service: 12/23/24 Procedure(s): IR us guide venous access Accession Number(s): [id number] cc: Carito Roche DNP, FNP-BC; Katrin Santoyo MD PROCEDURE: IR INSERTION OF TUNNEL CATHETER CLINICAL INFORMATION: Creatinine 4.0. Permacath for dialysis COMPARISON: None available. TECHNIQUE: Following explaining ultrasound and fluoroscopy-guided placement of left side permacatheter procedure, benefits and risk the a soft work wrapper layer and examiner, a written consent was obtained. Patient was [...] was advanced and needle removed. A 5 Ghanaian dilator was placed over the guidewire and [...] was removed. The guidewire to the 5 Ghanaian neck was reviewed and replaced by 0.035 J-wire advanced into the IVC under fluoroscopy. The 5 Ghanaian pigtail was removed and the tract was dilated up to 16 Ghanaian dilator. A 16 Ghanaian dilator with peel-away sheath was introduced over [...] placement of a 27 cm long 12 Ghanaian permacatheter with the tip in the proximal SVC/brachiocephalic venous junction. Fluoroscopy time: 1.1 minute. Dose: 20.830 mGy. Electronically signed by: Huey Floyd MD 12/23/2024 04:41 PM EDT Dictated By: Huey Floyd MD Signed By: <Electronically signed by Huey Floyd MD in OV> 12/23/24 1641 DD/ 1030 TD/TT: 12/23/24 1247 Harp Regulator: LAYO Procedure Note Donotuseinterpreter, Image - 12/23/[address] [address] Interventional Radiology Rpt Signed Patient: Darrel Hagan#: [id number] : 1970Acct:[id number] Age/Sex: 54 / MADM Date: 12/23/24 Loc: [facility] Attending Dr: RENATO Shaver DNP Ordering Physician: Carito Roche DNP, FNP-BC Date of Service: 12/23/24 Procedure(s): IR us guide venous access Accession Number(s): [id number] cc: Carito Roche DNP, FNP-BC; Katrin Santoyo MD PROCEDURE: IR INSERTION OF TUNNEL CATHETER CLINICAL INFORMATION: Creatinine 4.0. Permacath for dialysis COMPARISON: None available. TECHNIQUE: Following explaining ultrasound and fluoroscopy-guided placement of left side permacatheter procedure, benefits and risk the a soft work wrapper layer and examiner, a written consent was obtained. Patient was [...] was advanced and needle removed. A 5 Ghanaian dilator was placed over the guidewire and [...] was removed. The guidewire to the 5 Ghanaian neck was reviewed and replaced by 0.035 J-wire advanced into the IVC under fluoroscopy. The 5 Ghanaian pigtail was removed and the tract was dilated up to 16 Ghanaian dilator. A 16 Ghanaian dilator with peel-away sheath was introduced over [...] placement of a 27 cm long 12 Ghanaian permacatheter with the tip in the proximal SVC/brachiocephalic venous junction. Fluoroscopy time: 1.1 minute. Dose: 20.830 mGy. Electronically signed by: Huey Floyd MD 12/23/2024 04:41 PM EDT Dictated By: Huey Floyd MD Signed By: <Electronically signed by Huey Floyd MD in OV> 12/23/24 1641 DD/ 1030 TD/TT: 12/23/24 1247 Harp Regulator: LAYO us [facility] External Provider IMG IR PROCEDURES Final Result * IR CVC Insert Central Tunnel (12/23/2024 10:30 AM EDT) Anatomical Region Laterality Modality Body X-Ray Angiograph y 12/23/2024 10:3 0 AM EDT Narrative 12/23/2024 4:44 PM EDT [address] [address] Interventional Radiology Rpt Signed Patient: Darrel Hagan MR#: [id number] : 1970 Acct:[id number] Age/Sex: 54 / M ADM Date: 12/23/24 Loc: [facility] Attending Dr: RENATO Shaver DNP Ordering Physician: Carito Roche DNP, FNP-BC Date of Service: 12/23/24 Procedure(s): IR cvc insert central tunnel Accession Number(s): [id number] cc: Carito Roche DNP, FNP-BC; Katrin Santoyo MD PROCEDURE: IR INSERTION OF TUNNEL CATHETER CLINICAL INFORMATION: Creatinine 4.0. Permacath for dialysis COMPARISON: None available. TECHNIQUE: Following explaining ultrasound and fluoroscopy-guided placement of left side permacatheter procedure, benefits and risk the a soft work wrapper layer and examiner, a written consent was obtained. Patient was [...] was advanced and needle removed. A 5 Ghanaian dilator was placed over the guidewire and [...] was removed. The guidewire to the 5 Ghanaian neck was reviewed and replaced by 0.035 J-wire advanced into the IVC under fluoroscopy. The 5 Ghanaian pigtail was removed and the tract was dilated up to 16 Ghanaian dilator. A 16 Ghanaian dilator with peel-away sheath was introduced over [...] placement of a 27 cm long 12 Ghanaian permacatheter with the tip in the proximal SVC/brachiocephalic venous junction. Fluoroscopy time: 1.1 minute. Dose: 20.830 mGy. Electronically signed by: Huey Floyd MD 12/23/2024 04:41 PM EDT RP Dictated By: Huey Floyd MD Signed By: <Electronically signed by Huey Floyd MD in OV> 12/23/24 1641 DD/ 1030 TD/TT: 12/23/24 1247 Harp Regulator: [facility] Procedure Note Donotuseinterpreter, Image - 12/23/2024 [place] [address] Interventional Radiology Rpt Signed Patient: Darrel HaganMR#: [id number] : 1970Acct:[id number] Age/Sex: 54 / MADM Date: 12/23/24 Loc: [facility] Attending Dr: RENATO Shaver DNP Ordering Physician: Carito Roche DNP, FNP-BC Date of Service: 12/23/24 Procedure(s): IR cvc insert central tunnel Accession Number(s): [id number] cc: Carito Roche DNP, FNP-BC; Katrin Santoyo MD PROCEDURE: IR INSERTION OF TUNNEL CATHETER CLINICAL INFORMATION: Creatinine 4.0. Permacath for dialysis COMPARISON: None available. TECHNIQUE: Following explaining ultrasound and fluoroscopy-guided placement of left side permacatheter procedure, benefits and risk the a soft work wrapper layer and examiner, a written consent was obtained. Patient was [...] was advanced and needle removed. A 5 Ghanaian dilator was placed over the guidewire and [...] was removed. The guidewire to the 5 Ghanaian neck was reviewed and replaced by 0.035 J-wire advanced into the IVC under fluoroscopy. The 5 Ghanaian pigtail was removed and the tract was dilated up to 16 Ghanaian dilator. A 16 Ghanaian dilator with peel-away sheath was introduced over [...] placement of a 27 cm long 12 Ghanaian permacatheter with the tip in the proximal SVC/brachiocephalic venous junction. Fluoroscopy time: 1.1 minute. Dose: 20.830 mGy. Electronically signed by: Huey Floyd MD 12/23/2024 04:41 PM EDT RP Dictated By: Huey Floyd MD Signed By: <Electronically signed by Huey Floyd MD in OV> 12/23/24 1641 DD/ 1030 TD/TT: 12/23/24 1247 Harp Regulator: LAYO [facility] External Provider IMG IR PROCEDURES Final Result * (ABNORMAL) Glucose, Whole Blood (12/23/2024 9:54 AM EDT) Glucose, Whole Blood 126(H) 60 - 115 mg/dL [facility] Comment:METER #: [id number] 12/23/2024 9:54 AM EDT 12/23/2024 10:04 AM EDT Generic External Data Provider LAB BLOOD ORDERAB LES Final Result Performing Organization Address [facility]/ZIP Co de Phone Number [facility] [address] [place] [phone] * Partial Thromboplastin Time, Activated (APTT) (12/23/2024 9:35 AM EDT) Partial Thromboplastin Time 31.3 26.7 - 34.1 SEC [facility] 12/23/2024 9:35 AM EDT 12/23/2024 9:40 AM EDT Generic External Data Provider LAB BLOOD ORDERAB LES Final Result Performing Organization Address [facility]/ZIP Co de Phone Number [facility] [address] [place] [phone] * (ABNORMAL) Prothrombin Time-INR (12/23/2024 9:35 AM EDT) Prothrombin Time 10.6(L) 10.9 - 12.4 SEC [facility] INTERNATIONAL NORM RATIO 0.9 0.9 - 1.1 [facility] Comment:INTERNATIONAL NORMAL IZED RATIO (INR) [...] 9:35 AM EDT 12/23/2024 9:40 AM EDT [employer] External Data Provider LAB BLOOD ORDERAB LES Final Result Performing Organization Address [facility] de Phone Number [facility] [address] [place] [phone] * (ABNORMAL) Creatinine, Serum (12/18/2024 12:34 PM EDT) Creatinine, Serum 10.22(HH) 0.5 - 1.4 mg/dL [facility] Comment:Critical value for t est(s): CREAT Results called to agatha back by: CHRISTY Person calling:ALISON Date: 12/18/24Time:1434 Estimated Glomerular Filt Rate 5 [facility] Comment:Chronic Kidney Disea se: Estimated GFR < 60 mL/min/1.22j8Eqorgr Kidney Disease: Estimated GFR < 15 mL/min/1.73m2 12/18/2024 12:3 4 PM EDT 12/18/2024 12:34 PM EDT Generic External Data Provider LAB BLOOD ORDERAB LES Final Result Performing Organization Address [facility] Co de Phone Number [facility] [address] [place] [phone] * (ABNORMAL) BUN (Blood Urea Nitrogen) (12/18/2024 12:34 PM EDT) Urea Nitrogen (BUN) 109(H) 9 - 16 mg/dL [facility] 12/18/2024 12:3 4 PM EDT 12/18/2024 12:34 PM EDT Generic External Data Provider LAB BLOOD ORDERAB LES Final Result Performing Organization Address [facility] Co de Phone Number [facility] [address] [place] [phone] * (ABNORMAL) Electrolyte Panel (12/18/2024 12:34 PM EDT) Sodium 146(H) 135 - 145 mmol/L [facility] Potassium 4.5 3.3 - 5.1 mmol/L [facility] Chloride 109(H) 96 - 108 mmol/L [facility] Carbon Dioxide 21(L) 22 - 29 mmol/L [facility] Anion Gap 21(H) 12 - 20 [facility] 12/18/2024 12:3 4 PM EDT 12/18/2024 12:34 PM EDT Generic External Data Provider LAB BLOOD ORDERAB LES Final Result Performing Organization Address [facility] Co de Phone Number [facility] [address] [place] [phone] * XR Hip left with Pelvis 1 view (11/27/2024 4:52 AM EDT) Anatomical Region Laterality Modality Lower Extremities, Hip Bilateral Radiograp hic Imaging 11/27/2024 4:52 AM EDT Narrative 11/27/2024 4:53 AM EDT [address] [address] XRay Report Signed Patient: Darrel Hagan MR#: [id number] : 1970 Acct:[id number] Age/Sex: 54 / M ADM Date: 11/27/24 Loc: HO.ED Attending Dr: Ordering Physician: Zena Saldivar MD Date of Service: 11/27/24 Procedure(s): XR hip LT w PEL1V Accession Number(s): [id number] cc: Zena Saldivar MD; Katrin Santoyo MD [...] signed by Arnulfo Martinez MD in OV> 11/27/24 0453 DD/ 1 TD/TT: 11/27/24451 Harp Regulator: Procedure Note Donotuseinterpreter, Image - 11/27/[address] [address] XRay Report Signed Patient: Darrel HaganMR#: [id number] : 1970Acct:[id number] Age/Sex: 54 / MADM Date: 11/27/24 Loc: HO.ED Attending Dr: Ordering Physician: Zena Saldivar MD Date of Service: 11/27/24 Procedure(s): XR hip LT w PEL1V Accession Number(s): [id number] cc: Zena Saldivar MD; Katrin Santoyo MD [...] signed by Arnulfo Martinez MD in OV> 11/27/24 0453 DD/ 1 TD/TT: 11/27/24451 Harp Regulator: [facility] External Provider IMG XR PROCEDURES Final Result * VASC US Lower Extremity Venous Duplex Bilateral (11/25/2024 10:05 AM EDT) 11/25/2024 10:0 5 AM EDT Narrative [facility] - 11/25/2024 10:35 AM EDT [place] [address] Ultrasound Report Signed Patient: Darrel Hagan MR#: [id number] : 1970 Acct:[id number] Age/Sex: 54 / M ADM Date: 11/25/24 Loc: HO.US Attending Dr: Katrin López MD Ordering Physician: Katrin Santoyo MD Date of Service: 11/25/24 Procedure(s): US venous duplex LE BI Accession Number(s): [id number] cc: Katrin Santoyo MD EXAMINATION: US TRIPLEX [...] Go Chance MD 11/25/2024 10:32 AM EDT RP Dictated By: Go Chance MD Signed By: <Electronically signed by Go Chance MD in OV> 11/25/24 1032 DD/ 1005 TD/TT: 11/25/24 1020 Harp Regulator: Procedure Note Donotuseinterpreter, Image - 11/25/2024 [place] [address] Ultrasound Report Signed Patient: Darrel HaganMR#: [id number] : 1970Acct:[id number] Age/Sex: 54 / MADM Date: 11/25/24 Loc: HO.US Attending Dr: Katrin López MD Ordering Physician: Katrin Santoyo MD Date of Service: 11/25/24 Procedure(s): US venous duplex LE BI Accession Number(s): [id number] cc: Katrin Santoyo MD EXAMINATION: US TRIPLEX [...] 11/25/24 1032 DD/ 1005 TD/TT: 11/25/24 1020 Harp Regulator: Katrin López MD CV VASCULAR PROCE DURES Final Result Performing Organization Address [facility]/ZIP Co de Phone Number [facility] [address] [place] [phone] * Hepatitis C Antibody with Reflex to HCV, RNA, Quantitative, Real-Time PCR (10/07/2024 12:53 PM EDT) Hepatitis C Antibody Nonreactive Nonreactive [facility] Comment:Antibodies to HCV no t detected; does not exclude early acuteHCV infection. Blood Venous blood specimen / Unknown 10/07/2024 12:53 PM EDT 10/07/2024 4:04 PM EDT Katrin López MD LAB BLOOD ORDERAB LES Final Result Performing Organization Address [facility]/ZIP Co de Phone Number [facility] [address] [place] [phone] * HIV-1/2 Antigen and Antibodies, Fourth Generation, with Reflexes (10/07/2024 12:53 PM EDT) HIV AB/AG Nonreactive Nonreactive [facility] Comment:HIV-1 p24 Ag and/or HIV-1/HIV-2 Ab not detected.A test result that is nonreactive does not exclude thepossibility of exposure to or infection with HIV-1 and/orHIV-2. Nonreactive results in this assay for individualswith prior exposure to HIV-1 and/or HIV-2 may be due toantigen and antibody levels that are below the limit ofdetection of this assay.The [employer] HIV Ag/Ab Combo assay result andsupplemental assay results should be interpreted inconjunction with the patient's clinical presentation,history and other laboratory results. If the results areinconsistent with clinical evidence, additional testing issuggested to confirm the result. Blood Venous blood specimen / Unknown 10/07/2024 12:53 PM EDT 10/07/2024 4:04 PM EDT us Katrin López MD LAB BLOOD ORDERAB LES Final Result [facility] [address], [place] [phone] * (ABNORMAL) Lipid Panel, Standard (10/07/2024 12:53 PM EDT) Triglycerides 209(H) <150 mg/dL [facility] Comment:Desirable Triglyceri de: less than 150 mg/dLBorderline High Triglyceride 150-199 mg/dLHigh Triglyceride: 200-499 mg/dLVery High Triglyceride: greater than or equal to 5OO mg/dL Cholesterol 295(H) <200 mg/dL [facility] Comment:Desirable Cholestero l: less than 200 mg/dLBorderline High Cholesterol: 200-239 mg/dLHigh Cholesterol: greater than 239 mg/dL LDL Cholesterol Calculated 197(H) <100 mg/dL [facility] Comment:Desirable LDL: less than 100 mg/dLNear Optimal/Above Optimal LDL: 110- 129 mg/dLBorderline High LDL: 130-159 mg/dLHigh LDL: 160-189 mg/dLVery High LDL: greater than or equal to 190 mg/dL HDL Cholesterol 57 >40 mg/dL [facility] Comment:Desirable HDL: great er than 40 mg/dL Note: This HDL assay may give artificially low results in patients with liver disease. Blood Venous blood specimen / Unknown 10/07/2024 12:53 PM EDT 10/07/2024 4:04 PM EDT Kartin López MD LAB BLOOD ORDERAB LES Final Result [facility] [address] [place] [phone] from Last 3 Months or Most Recently Relevant to Health Maintenance Insurance [facility]AL-[facility] MEDICAID STAND ADULT Care Teams Traverse Rod Assembler Relationship Specialty Start Date End Date Katrin Santoyo MD [address] [place] [phone] PCP - General Internal Medicine 12/13/22 Edison Vieira MD [address] [place] [address] Pulmonary Disease 04/07/24 Joe Devi MD [address] [place] [address] [address] [place] [address] Gastroenterology 04/07/24 Chuy Mcmanus MD [address] [place] [phone] Bariatrics 09/25/24 Sveta Lazaro, RN [address] [place] [phone] Registered Nurse Family Medicine 11/29/24 Leslie Kline 11/29/24 Carito Roche DNP [address] [facility], [address] [place] [address] Nephrology 04/07/24 [facility] 12/14/24
--- OUTSIDE RECORDS SUMMARY | 2025-02-25 21:05 | XMS_ITS | Encounter Summary ---
Author Organization [employer] Address [address] [facility] [address] [place] [address] Care Team Providers Care Therapist Respiratory Name Role Phone Katrin Santoyo MD Primary Care Pro vider Edison Vieira MD Unavailable [phone] Joe Devi MD Unavailable [phone] Chuy Mcmanus MD Unavailable Sveta Lazaro RN Unavailable [phone] Leslie Kline Unavailable Reason for Visit * Reason Comments Med Refill Encounter Details Date Type Department Care Team (Late st Contact Info) Description 01/02/2023 Refill [facility] [address] [place] [address] Elise Stanford FNP Hemorrhoids, unspecified hemorrhoid type [...] documented as of this encounter Care Teams Therapist Respiratory Relationship Specialty Start Date End Date Katrin Santoyo MD [address] [place] [phone] PCP - General Internal Medicine 12/13/22 Edison Vieira MD [address] [place] [address] Pulmonary Disease 04/07/24 Joe Devi MD [address] [place] [address] 3[address] [place] [address] Gastroenterology 04/07/24 Chuy Mcmanus MD [address] [place] [address] [place] [phone] Bariatrics 09/25/24 Sveta Lazaro RN [address] [place] [address] Registered Nurse Family Medicine 11/29/24 Leslie Kline 11/29/24 Carito Roche DNP [address] [place] [address], [address] [place] [address] Nephrology 04/07/24 [place] 04/11/24 12/18/24 [facility] 12/14/24 documented as of this encounter
--- OUTSIDE RECORDS SUMMARY | 2025-02-25 21:05 | XMS_ITS | Encounter Summary ---
Author Organization [facility] Address [address] [place] [address] Care Team Providers Care Compliance Clerk Name Role Phone [place], Deep Niko LOPEZ Primary Care Provider Reason for Visit * Reason Onset Date Comments Medication Refill 10/12/2021 Encounter Details Date Type Department Care Team (Late st Contact Info) Description 10/12/2021 Refill [facility] [address] [place] [address] eCcile Oneal, DMD [address] [place] [address] Medication Refill Social History [...] documented as of this encounter Care Teams Compliance Clerk Relationship Specialty Start Date End Date Deep Pruitt APRN PCP - General 05/22/19 documented as of this encounter
--- OUTSIDE RECORDS SUMMARY | 2025-02-25 21:05 | XMS_ITS | Encounter Summary ---
Author Organization [facility] Address [address] [place] [address] Care Team Providers Care Sugar Laboratory Assistant Name Role Phone Terra AltaDeep medina Niko LOPEZ Primary Care Provider [phone] Reason for Visit * Reason Comments Medication Refill Encounter Details Date Type Department Care Team ([facility] st Contact Info) Description 01/04/2021 Refill [facility] [address] [facility] [address] [place] [phone] Zena Hines PA [address] [place] [phone] Medication Refill Social History Tobacco Use [...] Date Recorded PHQ-2 Total Score 0 11/18/2020 [facility] - [...] documented as of this encounter Care Teams Sugar Laboratory Assistant Relationship Specialty Start Date End Date Deep Pruitt APRN PCP - General 05/22/19 documented as of this encounter
--- OUTSIDE RECORDS SUMMARY | 2025-02-25 21:05 | XMS_ITS | Encounter Summary ---
Author Organization [employer] Address 75 [facility] 7t [place] [address] Care Team Providers Care Powertrain Control Systems Engineer Name Role Phone Katrin Santoyo MD Primary Care Pro vider Edison Vieira MD Unavailable [phone] Joe Devi MD Unavailable [phone] Chuy Mcmanus MD Unavailable Sveta Lazaro RN Unavailable [phone] Leslie Kline Unavailable Reason for Visit * Reason Onset Date Comments Referral 04/05/2023 Encounter Details Date Type Department Care Team (Late st Contact Info) Description 04/05/2023 Telephone [facility] MEDICINE [address] [place], [place] [phone] Katrin Santoyo MD [address] [place], [place] [phone] Referral Social History Tobacco Use Types Packs/Day [...] Gastro made on 04/04/2023 sent to [address] [facility], states that they called facility and facility informs that their missing a summary form. Please contact pt at [phone] Pashto Speaker documented in this encounter Plan of Treatment Not on file documented as of this encounter Goals Goal Patient Goal Type Associated Problems Recent Progress Patient-Stated? Author Blood Pressure < 140/90 Blood Pressure 148/87(2024 12:59 PM EDT) No Piers-Eve Grier PharmD Hemoglobin A1c < 7 Result Component 7.1( 5 2:58 PM EDT) No Eve Guzman PharmD documented as of this encounter Visit Diagnoses Not on filedocumented in this encounter Additional Health Concerns Assessment Noted Time PHQ-9 Depression Total Score: 20 023 9:21 AM EDT documented as of this encounter Care Teams Powertrain Control Systems Engineer Relationship Specialty Start Date End Date Katrin Santoyo MD [address] [place] [address] PCP - General Internal Medicine 12/13/22 Edison Vieira MD [address] [place] [address] Pulmonary Disease 04/07/24 Joe Devi MD [address] [place] [address] 3rd [place] [address] Gastroenterology 04/07/24 Chuy Mcmanus MD [address] [place] [address] Bariatrics 09/25/24 Sveta Lazaro, CASIE [address] [place] [address] Registered Nurse Family Medicine 11/29/24 Leslie Kline 11/29/24 Carito Roche DNP 10 [facility], [address] [place] [address] Nephrology 04/07/24 [facility] 04/11/24 12/18/24 [facility] 12/14/24 documented as of this encounter
--- OUTSIDE RECORDS SUMMARY | 2025-02-25 21:05 | XMS_ITS | Encounter Summary ---
Author Organization [employer] Address 75 [facility] 7t [place] [address] Care Team Providers Care Assistant Hairstylist Name Role Phone Katrin Santoyo MD Primary Care Pro vider Edison Vieira MD Unavailable [phone] Joe Devi MD Unavailable [phone] Chuy Mcmanus MD Unavailable Sveta Lazaro RN Unavailable [phone] Leslie Kline Unavailable Encounter Details Date Type Department Care Team (Late st Contact Info) Description 02/25/2025 Telephone [facility] 230 [place], [place] [phone] Katrin Santoyo MD 230 [place], [place] [phone] Social History Tobacco Use Types Packs/Day Years [...] encounter Miscellaneous Notes * Telephone Encounter - Malini Jaffe - 02/25/2025 11:15 AM EDT Fax received from [facility] requesting Rx for home ventilator. Please advise if agree to prescribe. Thank you documented in this encounter Plan of Treatment [...] as of this encounter Care Teams Assistant Hairstylist Relationship Specialty Start Date End Date Katrin Santoyo MD [address] [place] [address] [place] [address] PCP - General Internal Medicine 12/13/22 Edison Vieira MD 5 [place] [address] Pulmonary Disease 04/07/24 Joe Devi MD 11 [facility] 3rd [place] [address] Gastroenterology 04/07/24 Chuy Mcmanus MD [address] [place] [address] Bariatrics 09/25/24 Sveta Lazaro, RN [address] [place] [address] Registered Nurse Family Medicine 11/29/24 Leslie Kline 11/29/24 Carito Roche DNP 10 [facility], [address] [place] [address] Nephrology 04/07/24 [facility] 12/14/24 documented as of this encounter
--- OUTSIDE RECORDS SUMMARY | 2025-02-25 21:05 | XMS_ITS | Encounter Summary ---
Author Organization [facility] Address [address] [place] [address] Care Team Providers Care Trade Analyst Name Role Phone EmigrantDeep medina Niko LOPEZ Primary Care Provider Encounter Details Date Type Department Care Team (Late st Contact Info) Description 02/19/2020 Scanned Document [facility] [address] [place], [place] [phone] Arben Fountain, NOLVIA [address] [place] [address] Social History Tobacco Use Types [...] Answer Date Recorded PHQ-2 Score 2 10/02/2019 [facility] - Occupational Stress [...] documented as of this encounter Care Teams Trade Analyst Relationship Specialty Start Date End Date Deep Pruitt APRN PCP - General 05/22/19 documented as of this encounter
--- OUTSIDE RECORDS SUMMARY | 2025-02-25 21:05 | XMS_ITS | Encounter Summary ---
Author Organization [employer] Address [address] [facility] [address] 7t [place] [address] Care Team Providers Care Leather Splitter Name Role Phone Katrin Santoyo MD Primary Care Pro vider Edison Vieira MD Unavailable [phone] Joe Devi MD Unavailable [phone] Chuy Mcmanus MD Unavailable Sveta Lazaro RN Unavailable [phone] Leslie Kline Unavailable Encounter Details Date Type Department Care Team (Late st Contact Info) Description 02/25/2025 Orders Only GENERIC EXTERNAL DATA DEPARTMENT [...] Blood Pressure 148/87(2024 12:59 PM EDT) No Whit-Eve Grier, PharmD Hemoglobin A1c < 7 Result Component 7.1( 2:58 PM EDT) No Eve Guzman PharmD documented as of this encounter Procedures Procedure Name Priority Date/Time Associated Diagnosis Comments URINALYSIS, COMPLETE, WITH REFLEX TO CULTURE Routine 02/25/2025 8:15 PM EDT HIGH SENSITIVITY TROPONIN I Routine 02/25/2025 4:27 PM EDT ETHANOL Routine 02/25/2025 4:27 PM EDT CBC WITH AUTO DIFFERENTIAL Routine 02/25/2025 4:27 PM EDT LIPASE Routine 02/25/2025 4:27 PM EDT COMPREHENSIVE METABOLIC PANEL Routine 02/25/2025 4:27 PM EDT documented in this encounter Results * (ABNORMAL) Urinalysis, Complete, with Reflex to Culture (02/25/2025 8:15 PM EDT) Color Urine Yellow [facility] Appearance Urine Clear [facility] PH 7.0 5.0 - 9.0 [facility] Glucose Urine UA >=1000(A) Negative mg/dL [facility] Urine Blood Trace(A) Negative [facility] Specific [place] - Urine 1.020 1.005 - 1.025 [facility] Urine Protein >=1000 (4+)(A) Neg-Trace mg/dL [facility] Urine Ketones Negative Negative mg/dL [facility] Nitrite Urine Negative Negative [facility] Leukocyte Esterase Urine Negative Negative [facility] RBC Urine 0-2 0 - 2 /HPF [facility] Urine WBC 0-5 0 - 5 /HPF [facility] Urine Squamous Epithelial Cell 0-2 0 - 2 /HPF [facility] Urine Bacteria None Seen None Seen [facility] Hyaline Casts, Urine 0-2 0 - 2 /LPF [facility] 02/25/2025 8:15 PM EDT 02/25/2025 8:17 PM EDT Narrative [facility] - 02/25/2025 8:26 PM EDT [id number], Clean Catch us Generic External Data Provider LAB URINE ORDERAB LES Final Result Performing Organization Address City/[facility]/ZIP Co de Phone Number [facility] [address] [place] [address] [phone] * Lipase (02/25/2025 4:27 PM EDT) Lipase 67 8 - 78 U/L [facility] 02/25/2025 4:27 PM EDT 02/25/2025 4:37 PM EDT us Generic External Data Provider LAB BLOOD ORDERAB LES Final Result Performing Organization Address [facility] Co de Phone Number [facility] [address] [place] [address] [phone] * (ABNORMAL) Comprehensive Metabolic Panel (02/25/2025 4:27 PM EDT) Sodium 139 135 - 145 mmol/L [facility] Potassium 4.6 3.3 - 5.1 mmol/L [facility] Chloride 105 96 - 108 mmol/L [facility] Carbon Dioxide 24 22 - 29 mmol/L [facility] Anion Gap 15 12 - 20 [facility] Urea Nitrogen (BUN) 40(H) 9 - 16 mg/dL [facility] Creatinine, Serum 7.17(HH) 0.5 - 1.4 mg/dL [facility] Comment:Critical value for t est(s): CREAT Results called to agatha back by: ADRIEN Person calling: go2 media Date:02/25/25 Time: 1706 Creatinine Clr Calc Pharmacy 13.5 [facility] Comment:eGFR (calculated fro m the MDRD study equation) and eCrCl(calculated from the Cockcroft-Gault equation) are based ondifferent parameters and may not yield comparable results.If eCrCl result is absurd, please check patient'sheight/weight. Estimated Glomerular Filt Rate 8 [facility] Comment:Chronic Kidney Disea se: Estimated GFR < 60 mL/min/1.56m5Qxehee Kidney Disease: Estimated GFR < 15 mL/min/1.73m2 Glucose 180(H) 60 - 115 mg/dL [facility] Calcium 9.6 8.4 - 10.2 mg/dL [facility] Bilirubin, Total 0.3 0.0 - 1.0 mg/dL [facility] Aspartate Amino Transferase 18 5 - 37 U/L [facility] Alanine Aminotransferase 12 0 - 40 U/L [facility] Total Protein 7.3 6.5 - 8.0 g/dL [facility] Albumin Level 3.9 3.5 - 5.0 g/dL [facility] Alkaline Phosphatase 143(H) 39 - 117 U/L [facility] 02/25/2025 4:27 PM EDT 02/25/2025 4:37 PM EDT Generic External Data Provider LAB BLOOD ORDERAB LES Final Result Performing Organization Address [facility] Phone Number [facility] [address] [place] [phone] * High Sensitivity Troponin I (02/25/2025 4:27 PM EDT) [facility] TROPONIN I HIGH SENSITIVITY 21.9 <3.5 - 35.0 ng/L [facility] Comment:The Lamar high sens itivity Troponin-I results should beused in conjunction with other diagnostic information suchas ECG, clinical observations and information, and patientsymptoms to aid in the diagnosis of ME. 02/25/2025 4:27 PM EDT 02/25/2025 4:37 PM EDT Generic External Data Provider LAB BLOOD ORDERAB LES Final Result Performing Organization Address [facility] Phone Number [facility] [address] [place] [phone] * Ethanol (02/25/2025 4:27 PM EDT) [facility] ETHANOL (MG/DL) IN SER/PLAS <10 mg/dL [facility] Comment:Serum/plasma ethanol results are to be used formedical/treatment purposes only. 02/25/2025 4:27 PM EDT 02/25/2025 4:37 PM EDT Generic External Data Provider LAB BLOOD ORDERAB LES Final Result Performing Organization Address [facility] Phone Number [facility] [address] [place] [phone] * (ABNORMAL) CBC auto differential (02/25/2025 4:27 PM EDT) [facility] White Blood Count 14.5(H) 4.8 - 10.8 X10*3/uL [facility] Red Blood Count 4.12(L) 4.60 - 5.80 X10*6/uL [facility] Hemoglobin 11.9(L) 14.0 - 18.0 g/dl [facility] Hematocrit 37.2(L) 42.0 - 52.0 % [facility] Mean Corpuscular Volume 90.3 80.0 - 98.0 fL [facility] Mean Corpuscular Hemoglobin 28.9 27.0 - 33.0 pg [facility] Mean Corpuscular HGB Conc 32.0 31.0 - 36.0 g/dl [facility] Red Cell Distribution Width 14.4 11.0 - 16.0 % [facility] Platelet Count 339 160 - 400 X10*3/uL [facility] Mean Platelet Volume 11.7 9.4 - 12.4 fL [facility] Neutrophils Percent Auto 65.0 45 - 73 % [facility] Imm Gran Pct Auto 0.3 0.0 - 0.4 % [facility] Lymphocytes Percent Auto 16.8(L) 20 - 40 % [facility] Monocytes Percent Auto 9.9 2 - 11 % [facility] Eosinophils Percent Auto 7.4(H) 0 - 4 % [facility] Basophils Percent Auto 0.6 0 - 2 % [facility] NRBC Pct Auto 0.0 0.0 - 0.2 /100WBC [facility] Neutrophils Absolute Auto 9.4(H) 2.0 - 8.3 x10*3/uL [facility] Imm Gran Abs Auto 0.05(H) 0.00 - 0.03 X10*3/uL [facility] Lymphocytes Absolute Auto 2.4 1.2 - 4.9 X10*3/uL [facility] Monocytes Absolute Auto 1.4(H) 0.1 - 1.2 X10*3/uL [facility] Eosinophils Absolute Auto 1.1(H) 0.0 - 0.4 X10*3/uL [facility] Basophils Absolute Auto 0.1 0.0 - 0.2 X10*3/uL [facility] NRBC Abs Auto 0.000 0.0 - 0.012 X10*3/uL [facility] 02/25/2025 4:27 PM EDT 02/25/2025 4:37 PM EDT us Generic External Data Provider LAB BLOOD ORDERAB LES Final Result [facility] [address] [place] [address] [phone] documented in this encounter Visit Diagnoses Not on filedocumented in this encounter Additional Health Concerns Assessment Noted Time PHQ-9 Depression Total Score: 18 025 12:21 PM EDT documented as of this encounter Care Teams Leather Splitter Relationship Specialty Start Date End Date Katrin Santoyo MD [address] [place] [address] PCP - General Internal Medicine 12/13/22 Edison Vieira MD [address] [place] [address] Pulmonary Disease 04/07/24 Joe Devi MD [address] [place] [address] 3rd [place] [address] Gastroenterology 04/07/24 Chuy Mcmanus MD [address] [place], [place] [address] [place] [address] Bariatrics 09/25/24 Sveta Lazaro RN [address] [place] [address] Registered Nurse Family Medicine 11/29/24 Leslie Kline 11/29/24 Carito Roche DNP 10 [facility], [address] [place] [address] Nephrology 04/07/24 [facility] 12/14/24 documented as of this encounter
--- OUTSIDE RECORDS SUMMARY | 2025-02-25 21:05 | XMS_ITS | Encounter Summary ---
Author Organization [employer] Address 75 [facility] 7t [place] [address] Care Team Providers Care Local Sales Associate Name Role Phone Elise Stanford INSTRUMENTAL MUSICIAN Primary Care Provider Victoria Katrin Bustos MD Primary Care Pro vider Edison Vieira MD Unavailable [phone] oJe Devi MD Unavailable [phone] Chuy Mcmanus MD Unavailable Sveta Lazaro RN Unavailable [phone] Leslie Kline Unavailable Reason for Visit * Reason Onset Date Comments Referral 11/24/2022 Podiatry Encounter Details Date Type Department Care Team (Late st Contact Info) Description 11/24/2022 Telephone [facility] MEDICINE [address] [place] [address] Elise Stanford FNP Referral (Podiatry/) Social History [...] Anne Ocasio - 11/29/2022 9:46 AM EDT Safe And Vault Mechanic re-faxed referral to Dr. Smith's office. Safe And Vault Mechanic called Dr. Smith's office and confirmed that referral was received. Safe And Vault Mechanic attempted to call patient twice to infirm that he may call to schedule his appt but did not answer and voicemail could not be left due to pt not having voicemail setup. Dr. Smith [address] [place] [phone] FAX [phone] * Telephone Encounter - Elizabeth Melo - 11/24/2022 9:51 AM EDT Tc from patient requesting status on podiatry referral. Safe [employer] Vault Mechanic provided address and phone number and patient [...] documented as of this encounter Care Teams Local Sales Associate Relationship Specialty Start Date End Date Elise Stanford FNP PCP - General Family Medicine 11/24/22 12/12/22 Katrin Santoyo MD [address] [place] [address] [phone] PCP - General Internal Medicine 12/13/22 Edison Vieira MD [address] [place] [address] [phone] Pulmonary Disease 04/07/24 Joe Devi MD 11 [facility] 3rd [place] [address] Gastroenterology 04/07/24 Chuy Mcmanus MD [address] [place] [address] [place] [address] Bariatrics 09/25/24 Sveta Lazaro RN [address] [place] [address] Registered Nurse Family Medicine 11/29/24 Leslie Kline 11/29/24 Carito Roche DNP 10 [facility], [address] [place] [address] Nephrology 04/07/24 [facility] 04/11/24 12/18/24 [facility] 12/14/24 documented as of this encounter
--- OUTSIDE RECORDS SUMMARY | 2025-02-25 21:05 | XMS_ITS | Encounter Summary ---
Author Organization [employer] Address 75 [facility] 7t [place] [address] Care Team Providers Care Developer Relations Manager Name Role Phone Katrin Santoyo MD Primary Care Pro vider Edison Vieira MD Unavailable [phone] Joe Devi MD Unavailable [phone] Chuy Mcmanus MD Unavailable Sveta Lazaro RN Unavailable [phone] Leslie Kline Unavailable Reason for Visit * Reason Onset Date Comments Ofice note fax over 02/19/2025 Encounter Details Date Type Department Care Team (Late st Contact Info) Description 02/19/2025 Telephone [facility] [address] [place], [place] [phone] Katrin Santoyo MD [address] [place], [place] [phone] Ofice note fax over Social History Tobacco Use Types Packs/Day Years [...] Telephone Encounter - Taylor Thomas RN - 02/20/2025 11:30 AM EDT Return call placed to Doretha at [facility] who confirmed that the completed office visit note from 02/17/2025 needs to be faxed to [phone] * Telephone Encounter - Sarah Myers - 02/19/2025 9:37 AM EDT Tc from Lorna requesting the las office note from 02/17 to be fax over when there are signed Contact Loran at [phone] documented in this encounter Plan of Treatment Not on file documented as of this encounter Goals Goal Patient Goal Type Associated Problems Recent Progress Patient-Stated? Author Blood Pressure < 140/90 Blood Pressure 148/87(2024 12:59 PM EDT) No Eve Guzman, PharmD Hemoglobin A1c < 7 Result Component 7.1( 2:58 PM EDT) No Eve Guzman, PharmD documented as of this encounter Visit Diagnoses Not on filedocumented in this encounter Additional Health Concerns Assessment Noted Time PHQ-9 Depression Total Score: 18 025 12:21 PM EDT documented as of this encounter Care Teams Developer Relations Manager Relationship Specialty Start Date End Date Katrin Santoyo MD [address] [place] [address] PCP - General Internal Medicine 12/13/22 Edison Vieira MD [address] [place] [address] Pulmonary Disease 04/07/24 Joe Devi MD [address] [place] [address] 3rd [place] [address] Gastroenterology 04/07/24 Chuy Mcmanus MD [address] [place] [address] [place] [address] Bariatrics 09/25/24 Sveta Lazaro RN [address] [place] [address] Registered Nurse Family Medicine 11/29/24 Leslie Kline 11/29/24 Carito Roche DNP 10 [facility], [address] [place] [address] Nephrology 04/07/24 [facility] 12/14/24 documented as of this encounter
--- OUTSIDE RECORDS SUMMARY | 2025-02-25 21:05 | XMS_ITS | Encounter Summary ---
Author Organization [employer] Address [address] [facility] [address] 7t [place] [address] Care Team Providers Care Levi Maker Name Role Phone Katrin Santoyo MD Primary Care Pro vider Edison Vieira MD Unavailable [phone] Joe Devi MD Unavailable [phone] Chuy Mcmanus MD Unavailable Sveta Lazaro RN Unavailable [phone] Leslie Kline Unavailable Reason for Visit * Reason Comments Med Refill Encounter Details Date Type Department Care Team (Late st Contact Info) Description 07/10/2024 Refill [facility] 230 [place], [place] [phone] June Jarvis, NILESH [address] [place] [address] Gout due to renal impairment, unspecified chronicity, [...] the past 12 months, has t he re[employer], gas, oil or water [employer] threatened to shut off services in your [...] documented as of this encounter Care Teams Levi Maker Relationship Specialty Start Date End Date Katrin Santoyo MD [address] [place] [address] PCP - General Internal Medicine 12/13/22 Edison Vieira MD [address] [place] [address] [phone] Pulmonary Disease 04/07/24 Joe Devi MD [address] 3rd [place] [address] Gastroenterology 04/07/24 Chuy Mcmanus MD [address] [place] [address] [place] [address] Bariatrics 09/25/24 Sveta Lazaro, CASIE [address] [place] [address] Registered Nurse Family Medicine 11/29/24 Leslie Kline 11/29/24 Carito Roche DNP [address], [address] [place] [address] Nephrology 04/07/24 [facility] 04/11/24 12/18/24 [facility] 12/14/24 documented as of this encounter
--- OUTSIDE RECORDS SUMMARY | 2025-02-25 21:05 | XMS_ITS | Encounter Summary ---
Author Organization [facility] Address [address] [place] [address] Care Team Providers Care Power And Recovery Supervisor Name Role Phone Deep Pruitt JOHN Primary Care Provider Encounter Details Date Type Department Care Team (Late st Contact Info) Description 02/12/2016 Scanned Document [facility] [address] [place] [address] Francisco Veloz PA [address] [place] [phone] Social History Tobacco Use Types Packs/Day [...] documented as of this encounter Care Teams Power And Recovery Supervisor Relationship Specialty Start Date End Date eDep Pruitt APRN PCP - General 05/22/19 documented as of this encounter
--- OUTSIDE RECORDS SUMMARY | 2025-02-25 21:05 | XMS_ITS | Encounter Summary ---
Author Organization [employer] Address [address] [facility] 7t [place] [address] Care Team Providers Care Personal Development Coach Name Role Phone Katrin Santoyo MD Primary Care Pro vider Edison Vieira MD Unavailable [phone] Joe Devi MD Unavailable [phone] Chuy Mcmanus MD Unavailable Sveta Lazaro RN Unavailable [phone] Leslie Kline Unavailable Encounter Details Date Type Department Care Team (Late st Contact Info) Description 02/25/2025 Telephone [facility] [address] [place], [place] [phone] Vivian Hoyt MD [address] [place], [place] [phone] Social History Tobacco Use Types Packs/Day Years [...] encounter Miscellaneous Notes * Telephone Encounter - Izabella Perez RN - 02/25/2025 1:20 PM EDT T/C placed to [facility] per request of Dr. Hoyt. Advised that pt is coming to ED via private car to rule out pancreatitis and acute cholecystitis as pt has pmh of gallstones and pancreatitis and is having intermittent severe RUQ pain. Afshin verbalized understanding. documented in this encounter Plan of Treatment [...] as of this encounter Care Teams Personal Development Coach Relationship Specialty Start Date End Date Katrin Santoyo MD [address] [place] [address] PCP - General Internal Medicine 12/13/22 Edison Vieira MD 5 [place] [address] Pulmonary Disease 04/07/24 Joe Devi MD [address] [place] [address] 3rd [place] [address] Gastroenterology 04/07/24 Chuy Mcmanus MD [address] [place] [address] Bariatrics 09/25/24 Sveta Lazaro RN [address] [place] [address] Registered Nurse Family Medicine 11/29/24 Leslie Kline 11/29/24 Carito Roche DNP [address] [facility], [address] [place] [address] Nephrology 04/07/24 [facility] 12/14/24 documented as of this encounter
--- OUTSIDE RECORDS SUMMARY | 2025-02-25 21:05 | XMS_ITS | Encounter Summary ---
Author Organization [employer] [facility] Address [address] [facility] 7t [place] [address] Care Team Providers Care Web Operations Specialist Name Role Phone Elise Stanford Primary Care Provider Victoria Katrin Bustos MD Primary Care Pro vider Edison Vieira MD Unavailable [phone] Joe Devi MD Unavailable [phone] Chuy Mcmanus MD Unavailable Sveta Lazaro RN Unavailable [phone] Leslie Kline Unavailable Encounter Details Date [...] on filedocumented in this encounter Care Teams Web Operations Specialist Relationship Specialty Start Date End Date Elise Stanford FNP PCP - General Family Medicine 11/24/22 12/12/22 Katrin Santoyo MD 230 [place] [address] PCP - General Internal Medicine 12/13/22 Edison Vieira MD [address] [place] [address] Pulmonary Disease 04/07/24 Joe Devi MD [address] 3rd [place] [address] Gastroenterology 04/07/24 Chuy Mcmanus MD [address] [place] [address] [place] [address] Bariatrics 09/25/24 Sveta Lazaro, CASIE [address] [place] [address] Registered Nurse Family Medicine 11/29/24 Leslie Kline 11/29/24 Carito Roche DNP 10 [facility], [address] [place] [address] Nephrology 04/07/24 [facility] 04/11/24 12/18/24 [facility] 12/14/24 documented as of this encounter
--- OUTSIDE RECORDS SUMMARY | 2025-02-25 21:05 | XMS_ITS | Encounter Summary ---
Author Organization [employer] [facility] [facility] Address [address] [place] [address] Care Team Providers Care Physics Instructor Name Role Phone Deep Pruitt APRN Primary Care Provider Reason for Visit * Reason Comments Medication Refill Encounter Details Date Type Department Care Team ([facility] st Contact Info) Description 01/29/2021 Refill [facility] [address] [place], [place] [phone] Deep Pruitt APRN [address] [place] [address] Medication Refill Social History Tobacco [...] Date Recorded PHQ-2 Total Score 6 01/21/2021 [facility] of Occupat ional [...] use of insulin (HC Code) (HC CODE) 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
--- OUTSIDE RECORDS SUMMARY | 2025-02-25 21:05 | XMS_ITS | Encounter Summary ---
Author Organization [facility] Address [address] [place] [address] Care Team Providers Care General Sales Manager Name Role Phone Deep Pruitt JOHN Primary Care Provider Reason for Visit * Reason Onset Date Comments Medication Refill 10/12/2021 Encounter Details Date Type Department Care Team (Late st Contact Info) Description 10/12/2021 Refill [facility] Nutrition at [address] [phone] Angie Mcghee MD [address] [place] [phone] Medication Refill Social History Tobacco Use Types [...] as of this encounter Care Teams General Sales Manager Relationship Specialty Start Date End Date Deep Pruitt APRN PCP - General 05/22/19 documented as of this encounter
--- OUTSIDE RECORDS SUMMARY | 2025-02-25 21:05 | XMS_ITS | Encounter Summary ---
Author Organization [employer] Address [address] [facility] 7t [place] [address] Care Team Providers Care Patent Prosecution Paralegal Name Role Phone Katrin Santoyo MD Primary Care Pro vider Edison Vieira MD Unavailable [phone] Joe Devi MD Unavailable [phone] Chuy Mcmanus MD Unavailable Sveta Lazaro RN Unavailable [phone] Leslie Kline Unavailable Encounter Details Date Type Department Care Team (Late st Contact Info) Description 06/21/2023 Abstract [facility] [address] [place], [place] [phone] Katrin Santoyo MD [address] [place], [place] [phone] Social History Tobacco Use Types Packs/Day Years [...] Pressure 148/87(2024 12:59 PM EDT) No Piers-Gambl Nimo carballosa, PharmD Hemoglobin A1c < 7 Result Component 7.1( 2:58 PM EDT) No Nemesios-Gambl Eve carballo, PharmD documented as of this encounter Visit Diagnoses Not on filedocumented in this encounter Additional Health Concerns Assessment Noted Time PHQ-9 Depression Total Score: 20 023 9:21 AM EDT documented as of this encounter Care Teams Patent Prosecution Paralegal Relationship Specialty Start Date End Date Katrin Santoyo MD [address] [place] [address] PCP - General Internal Medicine 12/13/22 Edison Vieira MD [address] [place] [address] Pulmonary Disease 04/07/24 Joe Devi MD [address] [place] [address] 3rd [place] [address] Gastroenterology 04/07/24 Chuy Mcmanus MD [address] [place] [address] [place] [address] Bariatrics 09/25/24 Sveta Lazaro RN [address] [place] [address] Registered Nurse Family Medicine 11/29/24 Leslie Kline 11/29/24 Carito Roche DNP [address] [place] [address], [address] [place] [address] Nephrology 04/07/24 [facility] 04/11/24 12/18/24 [facility] 12/14/24 documented as of this encounter
--- OUTSIDE RECORDS SUMMARY | 2025-02-25 21:05 | XMS_ITS | Encounter Summary ---
Author Organization [facility] Address [address] [place] [address] Care Team Providers Care Visual Coordinator Name Role Phone Deep Pruitt JOHN Primary Care Provider Encounter Details Date Type Department Care Team (Late st Contact Info) Description 02/13/2018 Scanned Document [facility] [address] [place] [address] Francisco Veloz PA [address] [place] [phone] Social History Tobacco Use Types Packs/Day [...] as of this encounter Care Teams Visual Coordinator Relationship Specialty Start Date End Date Deep Pruitt APRN PCP - General 05/22/19 documented as of this encounter
--- OUTSIDE RECORDS SUMMARY | 2025-02-25 21:05 | XMS_ITS | Encounter Summary ---
Author Organization [facility] Address [address] [place] [address] Care Team Providers Care Rn Iv Therapy Name Role Phone Deep Pruitt JOHN Primary Care Provider Encounter Details Date Type Department Care Team (Late st Contact Info) Description 01/01/2018 Scanned Document [facility] [address] [place], [place] [phone] Francisco Veloz PA [address] [place] [phone] Social History Tobacco Use Types Packs/Day [...] as of this encounter Care Teams Rn Iv Therapy Relationship Specialty Start Date End Date Deep Pruitt APRN PCP - General 05/22/19 documented as of this encounter
--- OUTSIDE RECORDS SUMMARY | 2025-02-25 21:05 | XMS_ITS | Encounter Summary ---
Author Organization [facility] [employer] [facility] Address [address] [place] [phone] Care Team Providers Care Oil Inspector Name Role Phone Deep Pruitt APRN Primary Care Provider Reason for Visit * Reason Onset Date Comments Medication Refill 09/30/2021 Encounter Details Date Type Department Care Team (Late st Contact Info) Description 09/30/2021 Refill [facility] [address] [facility] [address] [facility] 2nd [place] [address] Rubin Valderrama, [facility] [address] [place] [phone] Medication Refill Social History Tobacco Use Types [...] Date Recorded PHQ-2 Total Score 5 09/14/2021 [facility] of Occupat ional [facility] - Occupational Stress Questionnaire Answer Date [...] today, but unknown at home. Defer to [facility] pharmacy team for antihypertensive management. Current [...] as of this encounter Care Teams Oil Inspector Relationship Specialty Start Date End Date Deep Pruitt APRN PCP - General 05/22/19 documented as of this encounter
--- OUTSIDE RECORDS SUMMARY | 2025-02-25 21:05 | XMS_ITS | Encounter Summary ---
Author Organization [employer] Address [address] [facility] [address] 7t [place] [address] Care Team Providers Care Tare Weigher Name Role Phone Katrin Santoyo MD Primary Care Pro vider Edison Vieira MD Unavailable [phone] Joe Devi MD Unavailable [phone] Chuy Mcmanus MD Unavailable Sveta Lazaro RN Unavailable [phone] Leslie Kline Unavailable Encounter Details Date Type Department Care Team (Latest Contact Info) Description 02/25/2025 Travel Social History Tobacco Use Types Packs/Day [...] documented as of this encounter Care Teams Tare Weigher Relationship Specialty Start Date End Date Katrin Santoyo MD [address] [place] [address] PCP - General Internal Medicine 12/13/22 Edison Vieira MD [address] [place] [address] Pulmonary Disease 04/07/24 Joe Devi MD [address] [place] [address] 3rd [place] [address] Gastroenterology 04/07/24 Chuy Mcmanus MD [address] [place], [place] [address], [place] [address] Bariatrics 09/25/24 Sveta Lazaro, CASIE [address] [place] [address] Registered Nurse Family Medicine 11/29/24 Leslie Kline 11/29/24 Carito Roche DNP [address] [place] [address], [address] [place] [address] Nephrology 04/07/24 [facility] 12/14/24 documented as of this encounter
--- OUTSIDE RECORDS SUMMARY | 2025-02-25 21:05 | XMS_ITS | Encounter Summary ---
Author Organization [facility] Address [address] [place] [address] Care Team Providers Care Mold Making Supervisor Name Role Phone Deep Pruitt APRN Primary Care Provider Reason for Visit * Reason Onset Date Comments Medication Refill 10/12/2021 Encounter Details Date Type Department Care Team (Late st Contact Info) Description 10/12/2021 Refill [facility] at [address] [place] [address] Anahi Rossi, JOHN [address] [place] [address] Medication Refill Social History Tobacco [...] 10/12/2021 [facility] of Occupat ional [facility] - Occupational Stress Questionnaire Answer Date [...] as of this encounter Care Teams Mold Making Supervisor Relationship Specialty Start Date End Date Deep Pruitt APRN PCP - General 05/22/19 documented as of this encounter
--- OUTSIDE RECORDS SUMMARY | 2025-02-25 21:05 | XMS_ITS | Encounter Summary ---
Author Organization [facility] Address [address] [place] [address] Care Team Providers Care Security Consultant Name Role Phone Deep Pruitt APRN Primary Care Provider Reason for Visit * Reason Comments Medication Refill Encounter Details Date Type Department Care Team ([facility] st Contact Info) Description 12/29/2020 Refill [facility] [address] [place] [address] Deep Pruitt APRN [address] [place] [phone] Medication Refill Social History Tobacco Use [...] Date Recorded PHQ-2 Total Score 0 11/18/2020 [facility] of Occupat ional [...] as of this encounter Care Teams Security Consultant Relationship Specialty Start Date End Date Deep Pruitt APRN PCP - General 05/22/19 documented as of this encounter
--- OUTSIDE RECORDS SUMMARY | 2025-02-25 21:05 | XMS_ITS | Clinical Summary ---
Author Organization [facility] Address [address] [place] [address] Phone Care Team Providers Care Corporate Development Intern Name Role Phone Physician, No Pcp Primary [...] Team Description 12/30/2024 Telephone [facility] [place] [address] [facility] 250 [place] [address] Jan Amor DPM from Last 3 Months Immunizations Immunization Administration Dates Next Due Moderna SARS-CoV-2 COVID-19, mRNA, LNP-S, preservative free 08/28/2020,07/28/2020 Pfizer SARS-CoV-2 COVID-19, mRNA, LNP-S, preservative free 04/14/2021 Medical History Medical History Date Comments Diabetes mellitus ([facility] V24, [facility] V28) Hypertension REGI (obstructive sleep apnea) Social [...] Health Maintenance Due Date Last Done Comments Colorectal Cancer Screening: Colonoscopy 1970 Diabetes: Annual Foot Exam 1980 Diabetes: Annual Retina Eye Exam 1980 Hepatitis A Vaccines (1 of 2 - Risk 2-dose series) 1989 RSV Immunization Adult Patients (1 - Risk 50-74 years 1-dose series) 2020 Zoster Vaccines (1 of 2) 2020 Pneumococcal Vaccine: 50+ Years (2 of 2 - PCV) 01/21/2022 01/21/2021 Social Influencers of Health Screening 06/02/2023 Depression [...] Medical Center Annual BMP Blood Test Abstracted Result [facility] Provider HEALTH MAINTENANCE Final Result * Lipid panel (09/19/2023) Pathologist [facility] Triglycerides 0 mg/dL Comment:No interpretation Cholesterol 0 mg/dL Comment:No interpretation HDL 0 mg/dL Comment:No interpretation LDL Cholesterol 0 mg/dL Comment:No interpretation Blood Venous blood specimen / Unknown Result [facility] Provider LAB BLOOD ORDERABLES Fauzia l Result * Urine Albumin Creatinine Ratio (05/19/2023) Pathologist [facility] Urine Albumin Creatinine Ratio Abstracted [facility] Provider HEALTH MAINTENANCE Final Result * Hemoglobin A1c (05/17/2023) Pathologist [facility] Hemoglobin A1C 0.0 % Comment:No interpretation Blood Venous blood specimen / Unknown Result [facility] Provider LAB BLOOD ORDERABLES Fauzia l Result * HIV Screening (12/06/2022) HIV Screening Abstracted [facility] Provider HEALTH MAINTENANCE Final Result * Hepatitis C Screening (12/06/2022) Hepatitis C Screening Abstracted [facility] Provider HEALTH MAINTENANCE Final Result from Last 3 Months or Most Recently Relevant to Health Maintenance [place] Care Teams Corporate Development Intern Relationship Specialty Start Date End Date Physician, No Pcp PCP - General 04/08/24
--- OUTSIDE RECORDS SUMMARY | 2025-02-25 21:05 | XMS_ITS | Encounter Summary ---
Author Organization [employer] Address [address] [facility] 7t [place] [address] Care Team Providers Care Solid Glass Rod Dowel Machine Operator Name Role Phone Katrin Santoyo MD Primary Care Pro vider Edison Vieira MD Unavailable [phone] Joe Devi MD Unavailable [phone] Chuy Mcmanus MD Unavailable Sveta Lazaro RN Unavailable Leslie Kline Unavailable Encounter Details Date Type Department Care Team (Late st Contact Info) Description 02/20/2025 Telephone [facility] [address] [place] [address] Karen Luis, RN Social History Tobacco Use Types Packs/Day [...] housing situation today? I have madelyn ainsley 11/01/[address] you li [...] encounter Miscellaneous Notes * Telephone Encounter - Karen Luis RN - 02/20/2025 1:36 PM EDT Tc to pt to let them know per PCP Please can you contact the patient's surgeon office, name: Dr. [facility], office number: [phone] in respect of creation of dialysis access fistula 02/27/2025 . His blood sugar is high and uncontrollable in the 500's despite prescribed treatment. On daily dialysis, pending appointment with professor of visual arts patient could not provide date. Not comfortable clearing the patient but will defer to the surgeon . Thank you . OV note was faxed, confirmation received and bárbara verbalized understanding. * Telephone Encounter - Karen Luis RN - 02/20/2025 1:36 PM EDT ----- Message from Nupur Couch sent at 02/19/2025 11:12 AM EDT ----- Please can you contact the patient's surgeon office, name: Dr. [facility], office number: [phone] in respect of creation of dialysis access fistula 02/27/2025 . His blood sugar is high and uncontrollable in the 500's despite prescribed treatment. On daily dialysis, pending appointment with professor of visual arts patient could not provide date. Not comfortable clearing thepatient but will defer to the surgeon . Thank you documented in this encounter Plan [...] documented as of this encounter Care Teams Solid Glass Rod Dowel Machine Operator Relationship Specialty Start Date End Date Katrin Santoyo MD [address] [place] [address] PCP - General Internal Medicine 12/13/22 Edison Vieira MD [address] [place] [address] Pulmonary Disease 04/07/24 Joe Devi MD [address] [place] [address] 3[address] [place] [address] Gastroenterology 04/07/24 Chuy Mcmanus MD [address] [place] [address] Bariatrics 09/25/24 Sveta Lazaro RN [address] [place] [address] Registered Nurse Family Medicine 11/29/24 Leslie Kline 11/29/24 Carito Roche DNP [address] [place] [address], [address] [place] [address] Nephrology 04/07/24 [facility] 12/14/24 documented as of this encounter
--- OUTSIDE RECORDS SUMMARY | 2025-02-25 21:05 | XMS_ITS | Encounter Summary ---
Author Organization [facility] Address [address] [place] [address] Care Team Providers Care Loftsman Name Role Phone Deep Pruitt APRN Primary Care Provider Reason for Visit * Reason Comments Medication Refill Encounter Details Date Type Department Care Team ([facility] st Contact Info) Description 02/01/2021 Refill [facility] [address] [place], [place] [phone] Deep Pruitt APRN [address] [place] [address] Medication Refill Social History Tobacco [...] documented as of this encounter Care Teams Loftsman Relationship Specialty Start Date End Date Deep Pruitt APRN PCP - General 05/22/19 documented as of this encounter
--- OUTSIDE RECORDS SUMMARY | 2025-02-25 21:05 | XMS_ITS | Encounter Summary ---
Author Organization [facility] Address [address] [place] [address] Care Team Providers Care Laborer Driver Name Role Phone Deep Pruitt APRN Primary Care Provider Reason for Visit * Reason Comments Medication Refill Encounter Details Date Type Department Care Team ([facility] st Contact Info) Description 11/24/2020 Telephone [facility] [address] [place] [address] Deep Pruitt APRN [address] [place] [address] Medication Refill Social History Tobacco [...] Date Recorded PHQ-2 Total Score 0 11/18/2020 [facility] of Occupat ional Health [...] of certain medication. Call back number is [phone] (kiswahili speaking) preferred pharmacy is [facility] [address] [address] documented in this encounter Plan [...] as of this encounter Care Teams Laborer Driver Relationship Specialty Start Date End Date Deep Pruitt APRN PCP - General 05/22/19 documented as of this encounter
--- OUTSIDE RECORDS SUMMARY | 2025-02-25 21:05 | XMS_ITS | Encounter Summary ---
Author Organization [facility] [employer] [facility] Address [address] [place] [address] Care Team Providers Care Inspector Tester Sorter Name Role Phone Deep Pruitt APRN Primary Care Provider Reason for Visit * Reason Onset Date Comments Medication Refill 09/30/2021 Encounter Details Date Type Department Care Team (Late st Contact Info) Description 09/30/2021 Refill [facility] at [address] [place] [address] Kaity Harris, LATIN DANCE INSTRUCTOR [address] [place] [phone] Medication Refill Social History Tobacco Use Types [...] PHQ-2 Total Score 5 09/14/2021 [facility] - [facility]ational Stress Questionnaire Answer [...] as of this encounter Care Teams Inspector Tester Sorter Relationship Specialty Start Date End Date Deep Pruitt APRN PCP - General 05/22/19 documented as of this encounter
--- OUTSIDE RECORDS SUMMARY | 2025-02-25 21:06 | XMS_ITS | Encounter Summary ---
Author Organization [facility] Address [address] [place] [address] Care Team Providers Care Title Assistant Name Role Phone Deep Pruitt APRN Primary Care Provider Reason for Visit * Reason Comments Medication Refill Encounter Details Date Type Department Care Team ([facility] st Contact Info) Description 09/23/2020 Refill [facility] [address] [place] [address] Deep Pruitt APRN [address] [place] [phone] Medication Refill Social History Tobacco Use [...] Answer Date Recorded PHQ-2 Score 2 07/07/2020 [facility] of Occupat ional [facility] - Occupational Stress Questionnaire [...] documented as of this encounter Care Teams Title Assistant Relationship Specialty Start Date End Date Deep Pruitt APRN PCP - General 05/22/19 documented as of this encounter
--- OUTSIDE RECORDS SUMMARY | 2025-02-25 21:06 | XMS_ITS | Encounter Summary ---
Author Organization [facility] [employer] and [facility] Address [address] [place] [phone] Care Team Providers Care Christian Science Practitioner Name Role Phone Romelia Pruittian Niko LOPEZ Primary Care Provider [phone] Encounter Details Date Type Department Care Team (Latest Contact Info) Description 08/10/2021 Transcribed Orders [facility] [address] [place] [address] Taylor Malagon, DRY CLEANER HAND [address] [place] [address] Stage 3a chronic kidney disease [...] Recorded PHQ-2 Total Score 4 07/13/2021 [facility] [...] mg/dL 08/10/2021 10:26 AM EDT [facility] DEPARTMENT OF LABORATORY MEDICINE Blood Venipuncture / Unknown 08/10/2021 9:40 AM EDT 08/10/2021 9:56 AM EDT Taylor Malagon APRN LAB BLOOD ORDERABLES Fauzia guzman Result [facility] DEPARTMENT OF LABORATORY MEDICINE [address] [place] [address] documented in this encounter Visit Diagnoses Diagnosis Stage 3a chronic kidney disease (CKD) (HC Code) (HC CODE)- Primary documented in this encounter Additional Health Concerns Infection Onset Date Last Indicated Resolved Time COVID-19 09/29/2021 09/29/2021 10/19/2021 7:19 PM EDT Assessment Noted Time PHQ-9 Depression Total Score: 11 022 2:28 PM EST documented as of this encounter Care Teams Christian Science Practitioner Relationship Specialty Start Date End Date Deep Pruitt APRN PCP - General 05/22/19 documented as of this encounter
--- OUTSIDE RECORDS SUMMARY | 2025-02-25 21:06 | XMS_ITS | Encounter Summary ---
Author Organization [facility] Address [address] [place] [address] Care Team Providers Care Network Security Administrator Name Role Phone Romelia Pruittian Niko LOPEZ Primary Care Provider Encounter Details Date Type Department Care Team (Late st Contact Info) Description 09/06/2021 Scanned Document [facility] [address] [place] [address] External, Provider Social History Tobacco Use Types [...] Date Recorded PHQ-2 Total Score 2 09/08/2021 [facility] of Occupat ional [...] as of this encounter Care Teams Network Security Administrator Relationship Specialty Start Date End Date Deep Pruitt APRN PCP - General 05/22/19 documented as of this encounter
--- OUTSIDE RECORDS SUMMARY | 2025-02-25 21:06 | XMS_ITS | Encounter Summary ---
Author Organization [facility] [employer] and [facility] Address [address] [place] [phone] Care Team Providers Care Outside Installation Machinist Name Role Phone Deep Pruitt APRN Primary Care Provider Reason for Visit * Reason Onset Date Comments Medication Refill 09/22/2021 Encounter Details Date Type Department Care Team (Late st Contact Info) Description 09/22/2021 Refill [facility] at [address] [address] [facility] 2nd [place] [address] Kaity Harris, MANAGER ENT [address] [place] [phone] Medication Refill Social History Tobacco Use Types [...] Recorded PHQ-2 Total Score 5 09/14/2021 [facility] - Occupational Stress Questionnaire [...] documented as of this encounter Care Teams Outside Installation Machinist Relationship Specialty Start Date End Date Deep Pruitt APRN PCP - General 05/22/19 documented as of this encounter
--- OUTSIDE RECORDS SUMMARY | 2025-02-25 21:06 | XMS_ITS | Encounter Summary ---
Author Organization [employer] [facility] Address [address] [place] [address] Care Team Providers Care Engineering Teacher Name Role Phone Deep Pruitt APRN Primary Care Provider Reason for Visit * Reason Comments Medication Refill Encounter Details Date Type Department Care Team ([facility] st Contact Info) Description 11/11/2020 Refill [facility] [address] [place] [address] Deep Pruitt APRN [address] [place] [phone] Medication Refill Social History Tobacco Use [...] 07/07/2020 [facility] Occupat ional [facility] - Occupational Stress Questionnaire Answer [...] as of this encounter Care Teams Engineering Teacher Relationship Specialty Start Date End Date Deep Pruitt APRN PCP - General 05/22/19 documented as of this encounter
--- OUTSIDE RECORDS SUMMARY | 2025-02-25 21:06 | XMS_ITS | Encounter Summary ---
Author Organization [facility] Address [address] [place] [address] Care Team Providers Care Flight Dynamicist Name Role Phone Romelia Pruittian Niko LOPEZ Primary Care Provider Encounter Details Date Type Department Care Team (Late st Contact Info) Description 09/08/2021 Scanned Document [facility] [address] [place] [address] External, Provider Social History Tobacco Use Types [...] Date Recorded PHQ-2 Total Score 2 09/08/2021 [facility] of Occupat ional Health [...] as of this encounter Care Teams Flight Dynamicist Relationship Specialty Start Date End Date Deep Pruitt APRN PCP - General 05/22/19 documented as of this encounter
--- OUTSIDE RECORDS SUMMARY | 2025-02-25 21:06 | XMS_ITS | Encounter Summary ---
Author Organization [facility] Address [address] [place] [address] Care Team Providers Care Speech Pathology Teacher Name Role Phone Deep Pruitt APRN Primary Care Provider Encounter Details Date Type Department Care Team ([facility] st Contact Info) Description 11/14/2020 Scanned Document [facility] [address] [place], [place] [phone] Deep Pruitt APRN [address] [place] [address] Social History Tobacco Use Types [...] documented as of this encounter Care Teams Speech Pathology Teacher Relationship Specialty Start Date End Date Deep Pruitt APRN PCP - General 05/22/19 documented as of this encounter
--- OUTSIDE RECORDS SUMMARY | 2025-02-25 21:06 | XMS_ITS | Encounter Summary ---
Author Organization [facility] Address [address] [place] [address] Care Team Providers Care Technical Clerk Name Role Phone Deep Pruitt APRN Primary Care Provider Reason for Visit * Reason Comments Medication Refill Encounter Details Date Type Department Care Team ([facility] st Contact Info) Description 09/16/2021 Refill [facility] [address] [place] [address] Deep Pruitt APRN [address] [place] [phone] Medication Refill Social History Tobacco Use [...] 09/14/2021 [facility] of Occupat [...] as of this encounter Care Teams Technical Clerk Relationship Specialty Start Date End Date Deep Pruitt APRN PCP - General 05/22/19 documented as of this encounter
--- OUTSIDE RECORDS SUMMARY | 2025-02-25 21:06 | XMS_ITS | Encounter Summary ---
Author Organization [facility] Address [address] [place] [address] Care Team Providers Care Coupling Machine Operator Name Role Phone Romelia Pruittian Niko LOPEZ Primary Care Provider [phone] Encounter Details Date Type Department Care Team (Late st Contact Info) Description 08/09/2021 Scanned Document [facility] [address] [place] [address] External, Provider Social History Tobacco Use Types [...] Date Recorded PHQ-2 Total Score 4 07/13/2021 [facility] of Occupat ional [...] documented as of this encounter Care Teams Coupling Machine Operator Relationship Specialty Start Date End Date Deep Pruitt APRN PCP - General 05/22/19 documented as of this encounter
--- OUTSIDE RECORDS SUMMARY | 2025-02-25 21:06 | XMS_ITS | Encounter Summary ---
Author Organization [facility] Address [address] [place] [address] Care Team Providers Care Operations Asst Name Role Phone Deep Pruitt APRN Primary Care Provider Encounter Details Date Type Department Care Team ([facility] st Contact Info) Description 06/21/2022 Scanned Document [facility] [address] [place], [place] [phone] Deep Pruitt APRN [address] [place] [address] Social History Tobacco Use Types [...] you attend chur ch or baptism services? More than 4 times per year [...] Date Recorded PHQ-2 Total Score 2 02/17/2022 [facility] - Occupational Stress Questionnaire Answer Date [...] your living situation today? I have a [facility] place to live 05/19/2022 Sex [...] as of this encounter Care Teams Operations Asst Relationship Specialty Start Date End Date Deep Pruitt APRN PCP - General 05/22/19 documented as of this encounter
--- OUTSIDE RECORDS SUMMARY | 2025-02-25 21:06 | XMS_ITS | Encounter Summary ---
Author Organization [facility] Address [address] [place] [address] Care Team Providers Care Telephone Station Installer Name Role Phone Deep Pruitt APRN Primary Care Provider [phone] Reason for Visit * Reason Comments Medication Refill Encounter Details Date Type Department Care Team ([facility] st Contact Info) Description 10/20/2020 Refill [facility] [address] [place], [place] [phone] Deep Pruitt APRN [address] [place] [address] Medication Refill Social History Tobacco [...] 2 07/07/2020 [facility] of Occupat ional Health - [...] documented as of this encounter Care Teams Telephone Station Installer Relationship Specialty Start Date End Date Deep Pruitt APRN PCP - General 05/22/19 documented as of this encounter
--- OUTSIDE RECORDS SUMMARY | 2025-02-25 21:06 | XMS_ITS | Encounter Summary ---
Author Organization [employer] [facility] Address [address] [place] [address] Care Team Providers Care Journeyman Lineman Name Role Phone Deep Pruitt APRN Primary Care Provider Reason for Visit * Reason Comments Medication Refill Encounter Details Date Type Department Care Team ([facility] st Contact Info) Description 11/11/2020 Refill [facility] [address] [place] [address] Deep Pruitt APRN [address] [place] [phone] Medication [...] Answer Date Recorded PHQ-2 Score 2 07/07/2020 [facility] of Occupat ional [facility] - Occupational Stress Questionnaire Answer [...] as of this encounter Care Teams Journeyman Lineman Relationship Specialty Start Date End Date Deep Pruitt APRN PCP - General 05/22/19 documented as of this encounter
--- OUTSIDE RECORDS SUMMARY | 2025-02-25 21:06 | XMS_ITS | Encounter Summary ---
Author Organization [employer] [facility] Address [address] [place] [address] Care Team Providers Care Screw Driver Operator Name Role Phone Deep Pruitt APRN Primary Care Provider [phone] [phone] Reason for Visit * Reason Comments Medication Refill Encounter Details Date Type Department Care Team ([facility] st Contact Info) Description 11/05/2020 Refill [facility] [address] [place] [address] Deep Pruitt APRN [address] [place] [phone] Medication Refill Social History Tobacco Use [...] 2 07/07/2020 [facility] of Occupat ional [facility] [...] documented as of this encounter Care Teams Screw Driver Operator Relationship Specialty Start Date End Date Deep Pruitt APRN PCP - General 05/22/19 documented as of this encounter
--- OUTSIDE RECORDS SUMMARY | 2025-02-25 21:06 | XMS_ITS | Encounter Summary ---
Author Organization [facility] [employer] [facility] Address [address] [place] [phone] Care Team Providers Care Cap Parts Cutter Name Role Phone Deep Pruitt APRN Primary Care Provider Encounter Details Date Type Department Care Team (Late st Contact Info) Description 08/05/2021 Orders Only [facility] [address] [place] [address] Carolyn Marin MD [address] [place] [phone] Essential hypertension Social History Tobacco Use [...] Date Recorded PHQ-2 Total Score 4 07/13/2021 [facility] of Occupat [...] documented as of this encounter Care Teams Cap Parts Cutter Relationship Specialty Start Date End Date Deep Pruitt APRN PCP - General 05/22/19 documented as of this encounter
--- OUTSIDE RECORDS SUMMARY | 2025-02-25 21:06 | XMS_ITS | Encounter Summary ---
Author Organization [facility] Address [address] [place] [address] Care Team Providers Care Payroll Human Resources Assistant Name Role Phone Deep Pruitt APRN Primary Care Provider Reason for Visit * Reason Comments Other Advice Only Encounter Details Date Type Department Care Team ([facility] Contact Info) Description 09/28/2021 Telephone [facility] [address] [place] [address] Deep Pruitt APRN [address] [place] [address] Other; Advice Only Social History [...] be given because his underlying condition. Patient [phone] documented in this encounter Plan of Treatment Not on file documented as of this encounter Visit Diagnoses Not on filedocumented in this encounter Additional Health Concerns Infection Onset Date Last Indicated Resolved Time COVID-19 09/29/2021 09/29/2021 10/19/2021 7:19 PM EDT Assessment Noted Time PHQ-9 Depression Total Score: 7 09/15/19 22 10:31 AM EDT documented as of this encounter Care Teams Payroll Human Resources Assistant Relationship Specialty Start Date End Date Deep Pruitt APRN PCP - General 05/22/19 documented as of this encounter
--- OUTSIDE RECORDS SUMMARY | 2025-02-25 21:06 | XMS_ITS | Encounter Summary ---
Author Organization [facility] [employer] [facility] and [facility] Address [address] [place] [phone] Care Team Providers Care Hot Mill Worker Name Role Phone Deep Pruitt APRN Primary Care Provider Reason for Visit * Reason Onset Date Comments Medication Refill 09/20/2021 Encounter Details Date Type Department Care Team (Late st Contact Info) Description 09/20/2021 Refill [facility] [address] [facility] [address] [facility] 2nd [place] [address] Ricarda Du MD [address] [place] [phone] Medication Refill Social History Tobacco Use Types [...] of this encounter Care Teams Hot Mill Worker Relationship Specialty Start Date End Date Deep Pruitt APRN PCP - General 05/22/19 documented as of this encounter
--- OUTSIDE RECORDS SUMMARY | 2025-02-25 21:06 | XMS_ITS | Encounter Summary ---
Author Organization [facility] Address [address] [place] [address] Care Team Providers Care Emergency Medical Tech Name Role Phone Romelia Pruittian Niko LOPEZ Primary Care Provider Reason for Visit * Reason Comments Medication Refill Encounter Details Date Type Department Care Team ([facility] st Contact Info) Description 09/16/2021 Refill [facility] [address] [place] [phone] Carlos Eduardo Joyner MD [address] [place] [phone] Medication Refill Social History Tobacco Use [...] Date Recorded PHQ-2 Total Score 5 09/14/2021 [facility] - [...] use of insulin (HC Code) (HC CODE) Hyperlipidemia associated with type 2 diabetes mellitus (HC Code) (HC CODE) documented in this encounter Additional Health Concerns Infection Onset Date Last Indicated Resolved Time COVID-19 09/29/2021 09/29/2021 10/19/2021 7:19 PM EDT Assessment Noted Time PHQ-9 Depression Total Score: 7 09/15/19 22 10:31 AM EDT documented as of this encounter Care Teams Emergency Medical Tech Relationship Specialty Start Date End Date Deep Pruitt APRN PCP - General 05/22/19 documented as of this encounter
--- OUTSIDE RECORDS SUMMARY | 2025-02-25 21:06 | XMS_ITS | Encounter Summary ---
Author Organization [facility] [employer] [employer] [facility] Address [address] [place] [phone] Care Team Providers Care Celery Stripper Name Role Phone Deep Pruitt APRN Primary Care Provider Encounter Details Date Type Department Care Team (Latest Contact Info) Description 09/13/2021 Transcribed Orders [facility] [address] [place] [address] Deep Pruitt APRN [address] [place] [address] Encounter for routine screening for [...] Date Recorded PHQ-2 Total Score 5 09/14/2021 [facility] of Occupat ional Health [...] - 3.900 ng/mL 09/13/2021 1:44 PM EDT [facility] DEPARTMENT OF LABORATORY MEDICINE Prostate Specific Antigen, Free (YH) 0.28 0.00 - 3.90 ng/mL 09/13/2021 1:44 PM EDT [facility] DEPARTMENT OF LABORATORY MEDICINE Comment:Prostate Specific An tigen, Free Percentage can not be calculated. PSA, Total value out of appropriate range. Blood Venipuncture / Unknown 09/09/2021 12:05 PM EDT 09/13/2021 10:48 AM EDT Narrative [facility] DEPARTMENT OF LABORATORY MEDICINE - 09/13/2021 1:44 [...] Pruitt APRN LAB BLOOD ORDERABLES Final Result [facility] DEPARTMENT OF LABORATORY MEDICINE [address] [place] [address] documented in this encounter Visit Diagnoses Diagnosis [...] documented as of this encounter Care Teams Celery Stripper Relationship Specialty Start Date End Date Deep Pruitt APRN PCP - General 05/22/19 documented as of this encounter
--- OUTSIDE RECORDS SUMMARY | 2025-02-25 21:06 | XMS_ITS | Encounter Summary ---
Author Organization [facility] Address [address] [place] [address] Care Team Providers Care Survey Operations Director Name Role Phone Deep Pruitt APRN Primary Care Provider Reason for Visit * Reason Comments Medication Problem Encounter Details Date Type Department Care Team ([facility] Contact Info) Description 10/11/2021 Telephone [facility] [address] [place] [address] Deep Pruitt APRN [address] [place] [address] Medication Problem Social History Tobacco [...] 08 of October Spoke to sissy via site interpreter #[id number] (patti) patient states she spoke to the [...] if patient medication can be resent to [facility] [place] [facility] [address] . Best contact: [phone] documented in this encounter Plan of Treatment Not on file documented as of this encounter Visit Diagnoses Not on filedocumented in this encounter Additional Health Concerns Infection Onset Date Last Indicated Resolved Time COVID-19 09/29/2021 09/29/2021 10/19/2021 7:19 PM EDT Assessment Noted Time PHQ-9 Depression Total Score: 0 10/08/19 22 1:27 PM EDT documented as of this encounter Care Teams Survey Operations Director Relationship Specialty Start Date End Date Deep Pruitt APRN PCP - General 05/22/19 documented as of this encounter
--- OUTSIDE RECORDS SUMMARY | 2025-02-25 21:06 | XMS_ITS | Encounter Summary ---
Author Organization [facility] Address [address] [place] [address] Care Team Providers Care Sample Finisher Name Role Phone Deep Pruitt APRN Primary Care Provider Encounter Details Date Type Department Care Team ([facility] st Contact Info) Description 10/26/2020 Scanned Document [facility] [address] [place], [place] [phone] Deep Pruitt APRN [address] [place] [address] Social History Tobacco Use Types [...] as of this encounter Care Teams Sample Finisher Relationship Specialty Start Date End Date Deep Pruitt APRN PCP - General 05/22/19 documented as of this encounter
--- OUTSIDE RECORDS SUMMARY | 2025-02-25 21:06 | XMS_ITS | Encounter Summary ---
Author Organization [facility] Address [address] [place] [address] Care Team Providers Care Accounting Machine Mechanic Name Role Phone Deep Pruitt APRN Primary Care Provider Reason for Visit * Reason Comments Other Appointment Encounter Details Date Type Department Care Team ([facility] Contact Info) Description 10/07/2021 Telephone [facility] [address] [place] [address] Deep Pruitt APRN [address] [place] [address] Other; Appointment Social History Tobacco [...] Date Recorded PHQ-2 Total Score 0 10/07/2021 [facility] of Occupat [...] after dropped call ,patient has virtual appt [phone] documented in this encounter Plan of Treatment Not on file documented as of this encounter Visit Diagnoses Not on filedocumented in this encounter Additional Health Concerns Infection Onset Date Last Indicated Resolved Time COVID-19 09/29/2021 09/29/2021 10/19/2021 7:19 PM EDT Assessment Noted Time PHQ-9 Depression Total Score: 0 10/08/19 22 1:27 PM EDT documented as of this encounter Care Teams Accounting Machine Mechanic Relationship Specialty Start Date End Date Deep Pruitt APRN PCP - General 05/22/19 documented as of this encounter
--- OUTSIDE RECORDS SUMMARY | 2025-02-25 21:06 | XMS_ITS | Encounter Summary ---
Author Organization [facility] Address [address] [place] [address] Care Team Providers Care Sales Store Checker Name Role Phone Deep Pruitt Niko LOPEZ Primary Care Provider Reason for Visit * Reason Onset Date Comments Medication Refill 09/22/2021 Encounter Details Date Type Department Care Team (Late st Contact Info) Description 09/22/2021 Refill [facility] [address] [facility] [address] [place] [phone] Zena Hines PA [address] [place] [phone] Medication Refill Social History Tobacco Use [...] Date Recorded PHQ-2 Total Score 5 09/14/2021 [facility] of Occupat [...] is no longer seeing Zena Hines at [facility] for DM mangement. Nate, Katrin documented in [...] as of this encounter Care Teams Sales Store Checker Relationship Specialty Start Date End Date Deep Pruitt APRN PCP - General 05/22/19 documented as of this encounter
--- OUTSIDE RECORDS SUMMARY | 2025-02-25 21:06 | XMS_ITS | Encounter Summary ---
Author Organization [facility] Address [address] [place] [address] Care Team Providers Care Pharmacy Order Entry Technician Name Role Phone Deep Pruitt APRN Primary Care Provider Reason for Visit * Reason Comments Medication Refill Encounter Details Date Type Department Care Team ([facility] st Contact Info) Description 09/17/2020 Refill [facility] [address] [place] [address] Deep Pruitt APRN [address] [place] [phone] Medication Refill Social History Tobacco Use [...] Answer Date Recorded PHQ-2 Score 2 07/07/2020 [facility] of Occupat ional [employer] [...] as of this encounter Care Teams Pharmacy Order Entry Technician Relationship Specialty Start Date End Date Deep Pruitt APRN PCP - General 05/22/19 documented as of this encounter
--- OUTSIDE RECORDS SUMMARY | 2025-02-25 21:06 | XMS_ITS | Clinical Summary ---
Author Organization [address] Address [address] [place] [id number] Care Team Providers Care Hydroponics Grower Name Role Phone Deep Pruitt APRN Primary [...] edema will order Compression sleeves today from [facility] today, Put on lower legs during [...] (compound)Indica tions:Diabetic foot (HC Code) (HC CODE) Apply to feet up to four times daily as needed for symptoms of burning/electrici ty (Call pharmacy for refills) 60 g 5 12/04/19 22 Active ONETOUCH VERIO FLEX METER deviceIndication s:Type 2 diabetes mellitus with diabetic neuropathy, with long-term current use of insulin (HC Code) (HC CODE) 4 x per day. For Type 2 diabetes mellitus with neurologic complication, with long-term current use of insulin E11.49, Z79.4, Duration 99 1 each 01/06/20 22 Active ziprasidone (GEODON) 80 mg capsuleIndicatio ns:Schizoaffecti ve disorder, depressive type (HC Code) (HC CODE) Take 1 capsule (80 mg total) by [...] disorder, depressive type (HC Code) (HC CODE) Take 1 capsule (60 mg total) by [...] lancets (ONETOUCH DELICA PLUS LANCET) 30 gauge [facility] [place] lancetsIndicatio ns:Type 2 diabetes mellitus with diabetic neuropathy, with long-term current use of insulin (HC Code) (HC CODE) Inject 1 each as directed 4 (four) times daily with meals and nightly. 360 each 06/23/19 23 Active nutritional therapy (GLUCERNA SHAKE) oral liquidIndication s:Type 2 diabetes mellitus with diabetic neuropathy, with long-term current use of insulin (HC Code) (HC CODE) Take 237 mLs by mouth 3 (Three) times daily after meals with Post-Prandial Finger Stick. Feeding difficulties R63.3 and Type 2 diabetes mellitus with neurologic complication, with long-term current use of insulin, Duration 99, Feeding difficulty R63.30 38727 mL 06/23/19 Active metFORMIN (GLUCOPHAGE) 1000 mg tabletIndication s:Type 2 diabetes mellitus with diabetic neuropathy, with long-term current use of insulin (HC Code) (HC CODE) Take 1 tablet (1,000 mg total) by mouth 2 (two) times daily with breakfast and dinner. 180 tablet 06/23/19 Active losartan (COZAAR) 50 mg tabletIndication s:Essential hypertension Take 1 tablet (50 mg total) by mouth daily. 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 Remove & Discard patch within 12 hours or as directed by 90 patch 06/23/19 Active insulin regular human CONCENTRATED 500 units/mL (HUMULIN R U-500, CONC, KWIKPEN) injection penIndications:T ype 2 diabetes mellitus with diabetic neuropathy, with long-term current use of insulin (HC Code) (HC CODE) Inject 190 Units under the skin 2 [...] use of insulin (HC Code) (HC CODE) Inject under the skin 4 (four) times daily with meals and nightly. Use with insulin pen. 360 each 06/23/19 Active insulin aspart (NOVOLOG) 100 unit/mL (3 mL) penIndications:T ype 2 diabetes mellitus with diabetic neuropathy, with long-term current use of insulin (HC Code) (HC CODE) Inject 30 Units under the skin 3 [...] use of insulin (HC Code) (HC CODE) Take 1 tablet (800 mg total) by [...] 2 diabetes mellitus (HC Code) (HC CODE) Take 1 tablet (10 mg total) by mouth daily. 90 tablet 06/23/19 23 Active ergocalciferol (VITAMIN D2) 1,250 mcg (50,000 unit) capsuleIndicatio ns:Vitamin D deficiency Take 1 capsule (50,000 Units total) by mouth once a week. 13 capsule 06/23/19 23 Active empagliflozin (JARDIANCE) 25 mg tabletIndication s:Type 2 diabetes mellitus with diabetic neuropathy, with long-term current use of insulin (HC Code) (HC CODE) Take 1 tablet (25 mg total) by [...] with breakfast and dinner. 180 tablet 06/24/19 Active bisacodyL (GENTLE LAXATIVE, BISACODYL,) 5 mg EC tabletIndication s:Other constipation Take 2 tablets (10 mg total) by mouth 2 (two) times daily as needed for constipation. 180 tablet 06/24/19 Active atorvastatin (LIPITOR) 80 mg tabletIndication s:Hyperlipidemia associated with type 2 diabetes mellitus (HC Code) (HC CODE) Take 1 tablet (80 mg total) by mouth daily. 90 tablet 06/24/19 Active aspirin 81 mg chewable tabletIndication s:Essential [...] use of insulin (HC Code) (HC CODE) Apply 1 each topically 4 (four) times [...] use of insulin (HC Code) (HC CODE) Inject 0.5 mLs (4.5 mg total) under the skin every 7 days. 6.5 mL 06/24/19 23 Active furosemide (LASIX) 80 mg tabletIndication s:Edema of both feet Take 1 tablet (80 mg total) by mouth 2 (two) times daily. 180 tablet 06/24/19 Active triamcinolone (KENALOG) 0.1 % pasteIndications :Medication refill Place onto teeth 2 (two) times daily. 5 g 12 06/24/19 Active blood sugar diagnostic (ONETOUCH VERIO) test stripsIndication s:Type 2 diabetes mellitus with diabetic neuropathy, with long-term current use of insulin (HC Code) (HC CODE) 1 strip by Other route 4 (four) times daily with meals and nightly. Check glucose QID for E11.65 360 each 06/24/19 Active Active Problems Problem Noted Date Diagnosed [...] AM with Arben Fountain DPM at the [facility] -Will f/u with Pt in [...] appointment and was informed he can call [phone] to find a closer time Assessment & Plan (02/19/2022 1:59 PM EDT): -The Pt went to his [employer] and was c/o right kidney pain for [...] Pt needs to go to the ED PER will continue to monitor Assessment & Plan (09/29/2021 2:28 PM EDT): - patient had home test positive September 27 - patient is currently taking inhalers for asthma, continues to feel wheezy, symptoms worse at night - pathway utilized through [facility], patient eligible for molnupiravir, may benefit from [...] 15:12 Ref. Range 04/07/2020 SPEP Interpretation Unknown Obfoq-8-Tefdvcpw Latest Ref Range: 0.2 - 0.3 g/dL 0.3 Qjvsg-7-Fovpdyhj Latest Ref Range: 0.5 - 0.9 g/dL 1.1 (H) Interpretation Unknown Comment Only Abnormal Protein Band 2 Latest Ref Range: NONE DETECTED g/dL CANCELED Abnormal Protein Band 3 Latest Ref Range: NONE DETECTED g/dL CANCELED Asgq-2-Fpytjfzv Latest Ref Range: 0.4 - 0.6 g/dL 0.5 Rzfg-1-Hzwlfngq Latest Ref Range: 0.2 - 0.5 g/dL 0.5 Gamma Globulin Latest Ref Range: 0.8 - 1.7 g/dL 1.1 Abnormal Protein Band 1 Latest Ref Range: NONE DETECTED g/dL CANCELED Protein, Total Latest Ref Range: 6.1 - 8.1 g/dL 7.1 Albumin Latest Ref Range: 3.8 - 4.8 g/dL 3.6 (L) Results for DARREL BHARDWAJ ( ) as of 04/08/2020 17:50 Ref. Range 04/07/2020 Free [place] Latest Ref Range: 3.3 - 19.4 mg/L 35.9 (H) Free Lambda Latest Ref Range: 5.7 - 26.3 mg/L 26.6 (H) Free [place]/Lambda Ratio Latest Ref Range: 0.26 - 1.65 [...] 15:12 Ref. Range 04/07/2020 SPEP Interpretation Unknown Wyawi-9-Zgmglgiw Latest Ref Range: 0.2 - 0.3 g/dL 0.3 Ruxmn-0-Fqgvuphc Latest Ref Range: 0.5 - 0.9 g/dL 1.1 (H) Interpretation Unknown Comment Only Abnormal Protein Band 2 Latest Ref Range: NONE DETECTED g/dL CANCELED Abnormal Protein Band 3 Latest Ref Range: NONE DETECTED g/dL CANCELED Rfku-2-Xpjxyivh Latest Ref Range: 0.4 - 0.6 g/dL 0.5 Rvzv-2-Vhqhlbaa Latest Ref Range: 0.2 - 0.5 g/dL 0.5 Gamma Globulin Latest Ref Range: 0.8 - 1.7 g/dL 1.1 Abnormal Protein Band 1 Latest Ref Range: NONE DETECTED g/dL CANCELED Protein, Total Latest Ref Range: 6.1 - 8.1 g/dL 7.1 Albumin Latest Ref Range: 3.8 - 4.8 g/dL 3.6 (L) Results for DARREL BHARDWAJ ( ) as of 04/08/2020 17:50 Ref. Range 04/07/2020 Free [place] Latest Ref Range: 3.3 - 19.4 mg/L 35.9 (H) Free Lambda Latest Ref Range: 5.7 - 26.3 mg/L 26.6 (H) Free [place]/Lambda Ratio Latest Ref Range: 0.26 - 1.65 [...] of 04/08/2020 17:50 Ref. Range 04/07/2020 Free [place] Latest Ref Range: 3.3 - 19.4 mg/L 35.9 (H) Free Lambda Latest Ref Range: 5.7 - 26.3 mg/L 26.6 (H) Free [place]/Lambda Ratio Latest Ref Range: 0.26 - 1.65 [...] like to speak with his pcp first [phone] Phone Conversation with Pt over the phone: PCP called british virgin islander speaking (uncontrolled diabetic) Pt over the phone, [...] day and schedule a referral with Podiatry PER, spent 10 mins talking with Pt Just [...] Tried to call the Pt using the Bulgarian Interpretor [employer], [facility] was not set up so a voice [...] have CC'd Ricarda Du MD, his primary facilities maintenance manager. She has a phone consult with him [...] all the Pt medication bottle be in british virgin islander, Pt had a medication (allopurinoL (ZYLOPRIM) 100 mg tablet) error because he can not read in Togolese, the Pt was prescribed 1/2 tab but [...] appointment to see me at the front edger Latest Reference Range & Units 09/09/21 12/15/21 BUN 7 - 25 mg/dL 31 (H) 29 (H) Creatinine 0.70 - 1.30 mg/dL 1.40 (H) 1.55 (H) BUN/Creatinine Ratio 6 - 22 (calc) 22.1 19 eGFR (NON -Chadian) >60 mL/min/1.73m2 53 eGFR (Afr Amer) >60 [...] Range: 8.0 - 23.0 22.1 eGFR (NON -Chadian) Latest Ref Range: >60 mL/min/1.73m2 53 eGFR [...] Taylor Malagon APRN at the Nephrology at [address] [place] [address], The Renal department is working on getting the Pt a 24 hour HTN monitor to assess the effectiveness of his recent medication changes, used british virgin islander interpretor [id number] 07/13/2021 Renal Referral Note: Assessment [...] of his recent medication changes, used british virgin islander interpretor [id number] 07/13/2021 Renal Referral Note: Assessment [...] given a referral to talk with the [facility] Customer Success Representative for further assessment of his current diet [...] and magnesium supplements that he said a gettering filament machine operator told him were good for his kidneys. I emphasized that he should stop and that these would do more harm than good, I hope he did stop them! Julio, Taylor Assessment & Plan (02/28/2020 4:45 PM [...] preparation for his first visit with a facilities maintenance manager, Ricarda Du MD on 04/07/2020. Assessment & Plan (02/12/2020 2:18 PM EDT): Pt was recently in the hospital for Kidney issues, the Pt missed a previous Kidney appointment and will ask Pt to reschedule another Kidney appointment Date & Time 02/25/2020 10:00 AM Provider Taylor Malagon APRN Department [facility] [address] [facility] Nephrology [address] [facility] 2nd Floor [facility] [address] Comment: Pt needs a Kidney referral due [...] 23 (H) 23 (H) 14.7 eGFR (NON -Chadian) Latest Ref Range: >60 mL/min/1.73m2 76 77 [...] (see MRI of Brain from 2017 under [facility] Multimedia -Significant deficits on neurologic exam Memory loss and Left handed weakness -Imaging and prior evaluation -Current blood thinning agents is aspirin -Potential details to include, when relevant: poor GAIT, uses a walker to get around -How the diagnosis was made: Pt lived in [facility] at the time, Under Multimedia in [employer]s see specific file at specific date [id number].TIF Image MRI Result [facility] - MRI BRAIN CVA -09/25/2016 [id number].TIF Image Evaluation [facility]- Left handed weakness note - [...] a letter to be given to the [place] [employer] advising stating that the Pt is disabled and needs help with housing Is there a form to be fill out from the [facility] advising that the Pt is disabled and needs help with housing t 03/26/21 Oksana Fox to Deep Pruitt WEB UI DEVELOPER Summary: Letters needed by patient This conventional underwriter met with patient at the clinic today 03.26.21 per nurses request, to assistance with letters that the patient is requesting. This conventional underwriter spoke to patient and patient is [...] Patient is also requesting a letter for [facility] advising that he is disabled. Patient stated that he has already applied for and wants this letter to help him get Housing CCM: 15 minutes 04/11/2021 Deep Pruitt APRN Assessment & Plan (05/31/2020 5:20 PM EST): Pt had a CVA from 2017 and needs Neuro clearance before getting a Colonoscopy Presumed etiology of prior stroke (see MRI of Brain from 2017 under [facility] Multimedia Significant deficits on neurologic exam Memory loss and Left handed weakness Imaging and prior evaluation Current blood thinning agents is aspirin Potential details to include, when relevant: poor GAIT, uses a walker to get around How the diagnosis was made: Pt lived in [facility] at the time, Under Multimedia in [employer] see specific file at specific date [id number].TIF Image MRI Result [facility] - MRI BRAIN CVA -09/25/2016 [id number].TIF Image Evaluation [facility]- Left handed weakness note - [...] is working with his Diabetic Specialist at [facility] and has an appointment next week, will increase his Gababentin to 800 mg PO TID which has helped with his neuropathic pain, Spent 25 mins with Pt using the Care Transition Mgr Microalbuminuric diabetic nephropathy (HC Code) 09/26/2019 Assessment [...] Ricarda Du MD at the Nephrology at [address] [place] [address] Results for DARREL BHARDWAJ ( ) as [...] ) as of 09/19/2019 07:04 eGFR (NON -Chadian) Latest Ref Range: > OR = 60 [...] for Bariatric surgery and Pt needs a nut feeder Assessment & Plan (09/10/2021 5:42 PM EDT): Pt has a BMI of 40.4 and is working with the wellness clinic to work on his weight loss plan, putting a referral in for Bariatric surgery and Pt needs a nut feeder Assessment & Plan (09/26/2019 9:45 AM EDT): Pt has a BMI of 40.4 and is working with the wellness clinic to work on his weight loss plan, putting a referral in for Bariatric surgery and Pt needs a nut feeder Assessment & Plan (09/09/2019 2:47 PM EDT): [...] whole encounter. The interview was conducted in Bulgarian which is my [place] earth language. I have encouraged Mr. Bhardwaj to contact us with any questions, concerns or clinical changes. Plan: 1. Continue current therapy. 2. No need for supplemental oxygen. Assessment & Plan (12/23/2021 12:10 PM EDT): -The Pt continues to feel like he is constantly SOB and is asking to be put on Oxygen WEB UI DEVELOPER -The Pt was given a list of labs to complete and once done then the Pt will be scheduled appointment with his Cnp -The Pt and the Cnp will decide together if the pt needs to be on O2 WEB UI DEVELOPER or not 08/18/2021 Pulmonary Note: Assessment: Mr. [...] ways in which he can request an freelance interpreter/translator over the phone and I am happy [...] complaints are out of proportion to seemingly ecjp-py-owjcojec asthma and his dyspnea is likely multifactorial. [...] ways in which he can request an freelance interpreter/translator over the phone and I am happy [...] complaints are out of proportion to seemingly cran-xo-spfsmrlv asthma and his dyspnea is likely multifactorial. [...] documentation in collaboration with Dr. Deep Yo. [facility] Quality Initiatives: Tobacco counseling: Patient [...] pulmonary disorder and these will be scheduled PER. He also has reported oxygen desaturations and [...] allergies spent 20 mins with Pt using Bulgarian Interpretor [id number] Assessment & Plan (11/14/2020 11:15 [...] years for colon cancer screening purposes. Used Bulgarian interpretor [id number] Assessment & Plan (06/16/2021 10:23 [...] years for colon cancer screening purposes. Used Bulgarian interpretor 8245 Assessment & Plan (09/13/2020 7:30 [...] years for colon cancer screening purposes. Used Bulgarian interpretor [id number] Assessment & Plan (06/24/2020 4:13 PM EST): Pt was informed of the following message and told to call and was asked to call to make a colonoscopy appointment 06/03/20 12:29 PM Message from [facility] at [address] [place] [address] Called patient to cancel pre colon appointment, patient did not answer and there was no voicemail set up. Attempted to call patient x2 in a row and no answer either time. Patient does not need pre colon appointment, only needs to schedule Colonoscopy. No [employer] message sent because at the time of the call when scheduling the pre colon appointment patient stated he does not know how to use the [employer] application. Pre colon appointment cancelled. Assessment & [...] not covered by insurance). Carolyn Marin MD, S Cardiovascular Medicine Decrease [...] colonoscopy at [facility] in [facility] and was told to return [...] Overview (02/06/2020): Update February 2020 by IMO Load (diagnosis update) Assessment & Plan (06/16/2021 10:26 [...] PATHOLOGY REPORT Patient: DARREL BHARDWAJ MR #: [id number] ([id number]) Submitted by: Hedy Hameed MD STOMACH, BIOPSY [...] disordered breathing. RECOMMENDATIONS / PLAN : -Current [place] [employer] recommendations for treatment of [...] RT talked with Pt Called patient with Bulgarian Interp. Nancy #[id number]. Patient said that he has an old ResMed that he received in [place] He doesn't know his mode or settings. Nor does he know his previous DME Assessment & Plan (09/10/2021 5:40 PM EDT): The Pt has an Sleep Apnea appointment on 09/24/2021 at 4:20 PM with Ryanne Ocasio MD at the [facility] at [address] [place] [address] Assessment & Plan (09/24/2019 3:03 PM EDT): [...] spent 45 mins with Pt with a radio aerial installer SLEEP STUDY - [facility] - [phone] Assessment & Plan (09/09/2019 3:22 PM EDT): Pt typically sleep 2.5 hours a night, Pt still has to return his sleep apnea machine to [place] before a sleep apnea clinic in [place] will talk to him, Pt has a BMI of 40.4 and PCP will put a referral in for sleep apnea for Pt today, spent 35 mins with Pt with a radio aerial installer Diabetic foot (HC Code) 02/07/2019 Assessment & Plan (06/24/2022 9:27 AM EST): The Pt continues to deal with bilateral foot pain and wears a pair of Diabetic shoes with specification ordered by his Relationship Consultant Doctor Assessment & Plan (05/31/2021 2:00 PM EST): The Pt continues to deal with bilateral foot pain and needs to get a pair of Diabetic shoes with specification ordered by his Relationship Consultant Doctor and will increase Gabapentin from 400 mg PO BID to 800 PO BID Assessment & Plan (01/04/2021 10:02 AM EDT): - recently seen in mid-December by Podiatry- note reviewed Assessment & Plan (10/14/2020 9:29 AM EDT): The Pt continues to deal with bilateral foot pain and needs to get a pair of Diabetic shoes with specification ordered by his Relationship Consultant Doctor see below: 08/26/2020 Podiatry Note: Bilateral [...] Also using his neuropathic compounding formula from [employer] as an adjunctive therapy and likes it [...] is working with his Diabetic Specialist at [facility] and has an appointment next week, will increase his Gababentin to 800 mg PO TID and assess effectiveness in one month Assessment & Plan (02/07/2019 6:48 AM EDT): Pt needs a Podiatry appointment due to toe nails need to be cut and Pt needs establish care with a Relationship Consultant for his annual diabetic foot care Diabetic eye exam (HC Code) 02/07/2019 Assessment & Plan (06/24/2022 9:29 AM EST): The Pt stated today that he saw his Eye Doctor, unable to see event in [facility] Assessment & Plan (09/18/2020 6:10 PM EDT): Pt has complaints of vision changes and he blew a blood vessel on his sclera, 3 years ago the Pt would see his Retina Doctor who did a lazer every 6 month, Pt needs a retinal eye referral 09/18/2020 Jeovanny Lynn: I put a referral in for the Pt and lately the [facility] has not been given dates for [...] from Leah Garcia, RN Sent to Deep Sonal Patient's Sissy Rosales requesting a referral for ophthamology be issued for this patient. Previous referral has and now closed and a new one needs to be issued, to schedule appointment for an eye check up. Ms. Rosales states that patient is diabetic and is having blurry vision as well as heavy eyes, and is in need of seeing eye doctor per. Patient can be reached at [phone]. Ms. Rosales can be reached at the same number [phone]. Thank you Deep Assessment & Plan (05/28/2020 2:38 PM EST): Used Interpretor [id number], Pt is asking for an Diabetic Eye [...] 2019, the Pt needs to call the [facility] [address] [place] [id number] Assessment & Plan (10/14/2020 2:13 PM EDT): [...] (01/04/2019 4:02 PM EDT): Pt needs a Bulgarian speaking Nurse to help him manage his [...] -Pt will be called biweekly by the [facility] Nurse to review his FBS finger [...] medications -He has been following with the [facility] team and reports taking all of [...] decided to move his [place] back to [place] area due to being closer to family [...] billing issues. 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 Dexa scanner/sensor, but he was unable [...] (DEXCOM G6 SENSOR) device and scanner Asked Human Resources Safety Manager to schedule a 1/2 hour Nurse visit [...] 200-300 average, checks ACHS -Pt has his [facility] appt on 04/21/2022 at 11:30 AM [...] Pt will continues to go to his [facility] appointments to review his Dexcom G6 numbers and make appropriate medication changes -If all that happens then the Pt can also scan before each meal, switch from taking 30 units of prandial insulin to start a Sliding Scale -Will leave note with Pt's Water Use Inspector that the Pt needs to have Provider use a Care Transition Mgr due to his poor Togolese skills -The Pt has received the Dexcom G6 split leather mosser and scanner but still does not know [...] Pt will continues to go to his [facility] appointments to review his Dexcom G6 [...] EDT): -Met with Pt and with our [facility] RN who was able to translate [...] 2.Novolog 30 before meals + supplementary sliding -370-->4u, 200-249-->6u, 250-299-->8u, 300-349-->10u, >350-->12u 3.continue with trulicity 4.5 mg weekly, jardiance 25 mg daily and metformin 1000 mg bid 4.contact us in 1 week to report BG 5.Check BS 4X/day. Keep organized log and bring it next time. Call [facility] for use of [...] Neuropathy: yes Recommendations: #Diabetes: 1. Continue with [id number] 190u bid 2.Novolog 30 before meals + supplementary sliding scale 150-199--> 4 units 200-249--> 6 units 250-299--> 8 units 300-349--> 10units >350--> 12 3.continue with trulicity 4.5 mg weekly, jardiance 25 mg daily and metformin 1000 mg bid 4.contact us in 1 week to report BG 5.Check BS 4X/day. Keep organized log and bring it next time. Call [facility] for use of [...] his painful foot issues -Will talk with [facility] Nurse about the Pt and support systems may not be compliant with taking meds and Insulin on a regular basis -Will work on bring the Pt's A1C down, it has been in the 11's for the past year and Pt not wanting to see [facility] or [facility] Diabetic Specialist -Will have to set [...] the Bariatric Doctor for weight loss -Used Care Transition Mgr # [id number] -Pt wished he could get his diabetic care restarted at the [facility] -Pt does not want to go to [facility] Diabetic Clinic or the [facility] diabetic clinic due to not feeling comfortable [...] Pt needs to be rescheduled with our [facility] Diabetic Clinic with Zena Hines PA, the Pt did not like dealing with [facility] due to not feeling comfortable with the [facility] Providers and has had missed multiple appointments The Pt continues to deal with an elevated A1C, Pt wished he could get his diabetic care restarted at the [facility], will refer today Results for DARREL BHARDWAJ [...] AM EDT): 09/30/21 10:41 AM Polly Hightower, CASIE Message from Ryanne Ocasio MD sent at 09/30/2021 Regarding: RE: 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 lathe 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 I think this is his 3rd [...] Ocasio MD at the [facility] Center at [address] [place] [address], Pt wished he could get his diabetic care restarted at the [facility], Pt advised to go to his scheduled [...] LDL 90 01/25/2021 MALCRR 3,278 (H) 09/16/2019 Outpatient/FIELD SERVICES DIRECTOR meds BLOOD GLUCOSE METER (ONETOUCH VERIO FLEX [...] 1000 mg tablet - continues to see [facility] - recent finger stick readings 350, no symptoms of hyperglycemia - discussed with patient taking medications as prescribed as well as changing diet - recommended to reduce carb intake and simple carbs throughout the day and night and see if fasting glucose improved in morning - plans to see [facility] soon Assessment & Plan (04/23/2021 10:36 AM EST): The Pt continues to work with his [facility] Diabetic Specialist and stated that his Finger sticks range between 98-160, Pt needs to get additional labs to assess kidney fx and his diabetes Assessment & Plan (01/08/2021 1:21 PM EDT): The Pt continues to deal with elevated A1C and sees his Water Use Inspector on a regular basis Results for DARREL [...] and has a f/u appointment with his Water Use Inspector on 09/29/2020 08/27/2020 Endocrine referral: Assessment and [...] his blood sugars. Could also consider insulin chisel worker like pioglitazone at low dose. Discussed treatment [...] Krystle Santos RN Spoke with pharmacist at [place], states if PCP will send scripts for [...] between 7 or 8 and talked through radio aerial installer [id number] that the Pt has to have the same amount of calories every meal so his sugars can stabilize Morning sugars 06/24/2020 was 119, 06/23/2020 was 253, was 349, Assessment & Plan (06/21/2020 6:52 AM EST): Images from the original note were not included. 06/15/2020 Endocrinology Note: Isha Carmen, JOHN Pruitt, Deep Pope, JOHN Adame, I would not [...] to 110 and send message to his arc welder Isha Carmen APRN with [facility] Assessment & Plan (05/28/2020 3:01 [...] to 105 and send message to his arc welder Isha Carmen APRN with [facility] Assessment & Plan (04/08/2020 6:17 [...] the care of Isha Carmen APRN with [facility] and was last prescribed insulin regular human CONCENTRATED 500 units/mL (HUMULIN R U-500, CONC, ANALUIS) injection pen Inject 85 Units under the [...] - 64 pg/mL 64.2 74 (H) Vitamin H31-Slaurss Latest Ref Range: 20 - 50 ng/mL [...] Diabetic care will be transferred over to [facility] and he has the following appointment: 03/27/2020 11:00 AM with Julia Ceja RD at the Diabetes Center at [facility] Assessment & Plan (02/14/2020 4:56 PM EDT): Patient called and stated he's a diabetic and was advised to speak with his pcp Deep if anything was wrong. He stated he woke up with a small cut in right foot on the small toe. I did offer the CC but stated he would like to speak with his pcp first [phone] ([place] speaking) Assessment & Plan (11/13/2019 7:10 PM [...] - 22 (calc) 23 (H) eGFR (NON -Chadian) Latest Ref Range: > OR = 60 [...] Pt is currently seeing our Diabetic Specialist WEB UI DEVELOPER at [facility], talking with WEB UI DEVELOPER on phone the Pt has developed an [...] 10, Pt needs to meet with the [facility] Nurse with the goal to bring [...] will continue to see Diabetic Clinic at [facility] for additional medication adjustments and will [...] will continue to see Diabetic Clinic at [facility] and re-evaluate Pt care in one [...] 6-8 weeks to be seen by his carcass trimmer Dr. Newberry. Attending Addendum: I have seen [...] that he is on this. I contacted [facility] and they reported that on 06/28 [...] and LVM requesting a call back. ID [id number] assisted call. Of note, appears patient was dropping off 24 hr BP monitor today so will look for those results to assist in further BP control recommendations. Fani Heath, PharmD [facility] [place], lopez presi n arterial no estaba joselin controlada en el monitor de presi n arterial de lopez casa. Nos gustar a que love a los farmac uticos, quienes pueden ayudarlo a manejar esto. La remisi n se coloc en lopez ltima visita con el Dr. Newberry y deber a estar visible en MyChart. Nos gustar a que por favor los [...] Dr. Newberry and should be visible in [place]. We would like you to please call [...] pain and dyspnea # h/o CVA (NOT [place] -- historical charting error) # Dyslipidemia with [...] pain and dyspnea # h/o CVA (NOT [place] -- historical charting error) # Dyslipidemia with [...] basis by his , will ask our [facility] Nurse to call Pt and verify [...] basis by his , will ask our [facility] Nurse to call Pt and verify [...] recent creatinine/potassium from 01/07 stable, recheck in [facility] this week Assessment & Plan (01/04/2021 9:26 [...] in one week to manage HTN, used brick off bearer 7690, Pt denies experiencing any pain or tightness [...] EST): When the Pt was admitted to [facility] for [facility] they had stopped his Lisinopril [...] medication up weekly, spent 35 min with Care Transition Mgr 868, will f/u with Pt in one month [...] to get all his meds in [place] and has an appointment on 02/24/2020 02/24/2020 3:40 PM Provider Deep Pruitt APRN [facility] Assessment & Plan (02/22/2020 5:19 AM EDT): I see that Losartan help protect the kidneys from damage due to diabetes, I will discontinue the atenolol and start him at Losartan 25 mg and slowly titrate him up and the Pt needs to get all his meds in [place] and has an appointment on 02/24/2020 02/24/2020 3:40 PM Provider Deep Pruitt APRN [facility] Assessment & Plan (03/16/2019 6:10 [...] following reasons: The patient has a prior [place] or stroke diagnosis Assessment & Plan (12/18/2018 [...] to call Pt with results seen below (Bulgarian only please) -And let him know that his UTI results were negative and there is no reason for antibiotics 09/08/2021 PCP Note: Pt c/o burning with urination for the past 2 day, will ask Pt to do a urine culture before prescribing an Antibiotic medication used Bulgarian interpretor [id number] 09/10/2021 PCP Addendum Note: The Pt has [...] colonoscopy at [facility] in [facility] and was told to return in a year for further surveillance because he had several polyps removed, the concern is that the Pt had a CVA x 2 in 2017 and need Neuro clearance and the Neuro referral was put in today Assessment & Plan (11/13/2019 7:05 PM EDT): Pt had a Colonoscopy done in [facility] in [facility] one year ago and was [...] AM EDT): 01/02/2020 the 49 yo male (Bulgarian speaking only) with a BMI of 39.6, last A1C Dec 2019 increased to 13.7, in 2018 the Pt had a right sided stroke (minimal residual speech and walking issues) and is working with our Diabetic WEB UI DEVELOPER Specialist to bring his sugars down, Pt [...] Plan (11/13/2019 7:08 PM EDT): Used a Care Transition Mgr 1326 for the entire 25 min visit, Pt [...] with Pt in 1 weeks, used a Care Transition Mgr 7185 throughout the visit -10/23/2019 the Pt again [...] with Pt in 2 weeks, used a Care Transition Mgr Propio through out the visit Assessment & [...] (H) -Pt will be referred to the [facility] Customer Success Representative to assess if his current diet is [...] Perla Rice RN message to Deep Pruitt WEB UI DEVELOPER Call was returned to patient and his [...] input from his primary care physician and facilities maintenance manager would be helpful. Considerations would include: stopping amlodipine, increasing diuretics, re-assessing labs for kidney function (e.g. is proteinuria worsening), and dietary interventions. Also counseled patient that weight loss would likely be helpful. I think his entrance guard can be helpful with managing his midfoot [...] input from his primary care physician and facilities maintenance manager would be helpful. Considerations would include: stopping amlodipine, increasing diuretics, re-assessing labs for kidney function (e.g. is proteinuria worsening), and dietary interventions. Also counseled patient that weight loss would likely be helpful. I think his entrance guard can be helpful with managing his midfoot [...] plan for regular follow up with your entrance guard, primary care physician, and facilities maintenance manager Follow-up: as needed with me Other interventions: recommend keeping the legs elevated when sitting (try to get feet above the level of the heart to get the fluid to come down; also recommend new pair of custom graduated compression stockings - wear daily - please call [employer] for an appointment to be measured for the new stockings so they fit you well. [facility] [address] [place] [phone] , PCP Notes: Will stop Amlodipine 5 mg PO QD and start Pt on Spirolactone 25 mg PO QD and assess in 2 weeks if Spirlactatone needs to be increased to 25 mg BID Will fax to [employer] order for Compression stocking and put contact info in AVS for the Pt to call and arrange for sizing CCM: 10 minutes 12/29/2020 Deep Pruitt APRN Assessment & Plan (06/24/2020 3:44 PM EST): 06/13/2020 the Pt had 2 pairs of Knee high compression stockings ordered and sent to [facility] and the Pt has to call [facility] so he can be measured and then pick them up when they arrive Assessment & Plan (06/13/2020 7:10 AM EST): Pt continues to deal with bilateral lower extremity edema will order Compression sleeves today from [facility] today, Put on lower legs during the day and take off at night, and wash and let dry and put on 2nd pair on the following day for Edema, lower extremity R60.0, will send to [facility] Assessment & Plan (05/26/2020 5:58 PM EST): [...] in 2 days at his next appointment Bulgarian Interpretor #[id number] CCM: 20 minutes 05/26/2020 Deep Pruitt APRN [...] MD Department Ambulatory Surgical Specialties - Vascular [facility] [address] [place] [address] Assessment & Plan (01/30/2020 4:18 PM EDT): [...] EST): When the Pt was admitted to [facility] for [facility] they had stopped his Lisinopril [...] to get all his meds in [place], sued radio aerial installer Mikhail Lore Administrative encounter 02/07/201909/2020 Assessment & Plan (02/07/2019 7:01 AM EDT): The Pt asked for a [place] State form Medical Report for Person who needs care , with Goal to have the Pt's partner as his service mechanic, spent 10 mins filling it out Stroke [...] How often do you attend chur or presybeterian services? More than 4 times [...] PHQ-2 Total Score 2 02/17/2022 [facility] Occupat ional [...] your living situation today? [facility] 05/19/2022 Sex and [...] 9:01 AM EDT Screening for prostate cancer [facility] PROPHYLAXIS - ADULT Routine 08/10/2021 10:45 AM EDT Encounter for dental exam and cleaning w/o abnormal findings [facility] BITEWINGS - FOUR RADIOGRAPHC IMAGES Routine 07/05/2021 10:30 AM EST Encounter for dental examination VA PERIODIC ORAL EVALUATION EST PT Routine 07/05/2021 10:30 AM EST Encounter for dental examination Oral frictional keratosis Partially edentulous mandible, unspecified edentulism class Secondary dental caries associated with failed or defective dental anabaptism Dental caries on smooth surface penetrating into [...] Results * (ABNORMAL) POCT HgbA1c, total CPT: 84417 (06/23/2022 4:21 PM EST) Hemoglobin A1C, POC 10.6 4.0 - 6.0 % [facility] Test Lot Number [id number] [facility] Test Lot Exp Date 09/18/22 Date Format: MM/DD/YYYY [facility] Blood specimen (specimen) 06/23/2022 4:21 PM EST Deep Pruitt APRN POINT OF CARE TEST ORDERABL ES Final Result Performing Organization Address [facility] de Phone Number [facility] * (ABNORMAL) [...] Comment Performing Lab: Site ID: [id number] Name: [facility] [email or web address] [facility] Address: [address] [place] [address], [place] [address] Director: Yadira Bowman M.D. Deep Pruitt APRN LAB BLOOD ORDERABLES Final Result Performing Organization Address City/[facility]/ZIP Co de Phone Number [facility] [address] [place] [address] * (ABNORMAL) Albumin/creatinine panel, urine, random (02/15/2022 2:02 PM EDT) Albumin, Urine, Random 1,885.3 Reference Range Not Established mg/L 02/15/2022 3:[address] [facility] Creatinine, Urine, Random 60 Reference Range Not Established mg/dL 02/15/2022 3:[address] [facility] Albumin/Creatin ine Ratio, Urine, Random 3,168.6(H ) <30.0 mg/g Cr 02/15/2022 3:[address] [facility] Comment: Moderately increased albuminuria (formerly microalbuminuria): 30-300 mg/g Cr Significantly increased albuminuria (overt albuminuria): >300 mg/g Cr Urine Collection / Unknown 02/15/2022 2:02 PM EDT 02/15/2022 2:59 PM EDT Yue Dominguez APRN URINE ORDERABLES Final Res ult Performing Organization Address City/State/[facility] Co de Phone Number [facility] [address] [place] [address] * PSA, total (Q) (09/09/2021 9:01 AM EDT) Pathologist [facility] Prostate Specific Antigen Total 0.44 < OR [...] Comment Performing Lab: Site ID: [id number] Name: [employer] [facility] Address: [address] [place] [address], [address] [place] [address] Director: Yadira Bowman M.D. us Deep Pruitt AREA INTELLIGENCE TECHNICIAN LAB BLOOD ORDERABLES Final Result [facility] [address] [place] [address], [facility] * Colonoscopy (09/03/2020 10:16 AM EDT) [facility] Colonoscopy [facility] Endoscopy Patient Name: Darrel Bhardwaj Procedure Date: 09/03/2020 10:16 AM Date of : 1970 Age: 50 Admit Type: Outpatient Gender: Male [facility] #: [id number] Note Status: Finalized Procedure Date no Time: [...] bowel preparation was evaluated using the BBPS (Early Bowel Preparation Scale) with scores of: Right [...] for surveillance. Procedure Code(s): --- Professional --- 05742, Colonoscopy, flexible; with biopsy, single or multiple Diagnosis Code(s): --- Professional --- Z86.010, Personal history of colonic polyps D12.0, Benign neoplasm of cecum CPT copyright 2018 [employer]. All rights reserved. The codes documented in this report are preliminary and upon quality control representative review may be revised to meet current [...] In: 10:41:36 AM Scope Out: 10:58:33 AM [facility] 09/03/2020 10:1 6 AM EDT us Provider Not In System GI PROCEDURE ORDERABLES F inal Result [facility] * Hepatitis C Ab with reflex to HCV PCR (02/06/2020 7:18 AM EDT) Hepatitis C Antibody Negative Negative 02/06/2020 4:[address] [facility] Comment:A negative result do es not exclude HCV infection, since antibodies are not detectable for 4-8 weeks after initial infection, or may not develop in compromised hosts. In high-risk individuals, repeat antibody testing in 2 months and/or HCV RNA PCR should be considered. Blood Venipuncture / Unknown 02/06/2020 7:18 AM EDT 02/06/2020 8:06 AM EDT Jordyn Hills APRN LAB BLOOD ORDERABLES Fauzia megan Result [facility] [address] [place] [address], [facility] [phone] * HIV 1/2 ag/ab, w/reflexes (Q) (12/10/2018 10:32 AM EDT) [facility] HIV Ag/Ab, 4th Generation NON-REACT NICKIE NON-REACT [...] purpose. For additional information please refer to http://education.[employer]/faq/CQM896 (This link is being provided for informational/ educational purposes only.) The performance of this assay has not been clinically validated in patients less than 2 years old. Blood 12/10/2018 10:3 2 AM EDT 12/10/2018 10:32 AM EDT Carlos Eduardo Joyner MD LAB BLOOD ORDERABLES Fi nal Result [facility] [address] [place] [address] from Last 3 Months or Most Recently Relevant to Health Maintenance Insurance [place] Member Subscriber Plan / Payer (Ef fective 2012-Present) Name:Darrel Bhardwaj Relation to Subscriber:Self Name:Darrel Bhardwaj Payer ID:[id number] Group ID:Not on file Type:Not on file Address: [address] [place] [phone] Advance Directives * Full ACLS (Latest Code Status on File) Date Activated Date Inactivated Comments 02/04/2020 9:46 PM 02/07/2020 8:23 PM Question Answer Comments With Whom was the Code Status Discussed? Patient Care Teams [employer]dropon[employer] Grower Relationship Specialty Start Date End Date Deep Pruitt APRN PCP - General 05/22/19
--- OUTSIDE RECORDS SUMMARY | 2025-02-25 21:06 | XMS_ITS | Encounter Summary ---
Author Organization [facility] Address [address] [place] [phone] Care Team Providers Care Locomotive Crane Engineer Name Role Phone Deep Pruitt APRN Primary Care Provider Encounter Details Date Type Department Care Team (Latest Contact Info) Description 09/09/2021 Transcribed Orders [facility] [address] [place] [address] Deep Pruitt APRN [address] [place] [address] Encounter for routine screening for [...] Date Recorded PHQ-2 Total Score 2 09/08/2021 [facility] - Occupational Stress Questionnaire [...] Orde r Schedule TSH w/reflex to FT4 ([facility]) Lab Routine Encounter for [...] health care facility TSH W/REFLEX TO FT4 ([facility] LM[facility] Q [facility]) Routine 09/09/2021 12:05 PM [...] prostate Routine general medical examination at a [facility] care facility ALBUMIN/CREATININE PANEL, URINE, RANDOM Routine 09/09/2021 11:01 AM EDT Encounter for routine screening for malformation using ultrasonics Special screening for malignant neoplasm of prostate Routine general medical examination at a [facility] care facility CBC WITH AUTO DIFFERENTIAL Routine 09/09/2021 10:58 AM EDT Encounter for routine screening for malformation using ultrasonics Special screening for malignant neoplasm of prostate Routine general medical examination at a [facility] care facility CBC AND DIFFERENTIAL Routine 09/09/2021 10:58 AM EDT Encounter for routine screening for malformation using ultrasonics Special screening for malignant neoplasm of prostate Routine general medical examination at a [facility] care facility HEMOGLOBIN A1C Routine [...] ng/mL 09/13/2021 1:44 PM EDT [facility] DEPARTMENT OF LABORATORY MEDICINE Prostate Specific Antigen, Free (YH) 0.28 0.00 - 3.90 ng/mL 09/13/2021 1:44 PM EDT [facility] DEPARTMENT OF LABORATORY MEDICINE Comment:Prostate Specific An tigen, Free Percentage can not be calculated. PSA, Total value out of appropriate range. Blood Venipuncture / Unknown 09/09/2021 12:05 PM EDT 09/13/2021 10:48 AM EDT Narrative [facility] DEPARTMENT OF LABORATORY MEDICINE - [...] BLOOD ORDERABLES Final Result Performing Organization Address City/State/[facility] Co de Phone Number [facility] DEPARTMENT OF LABORATORY MEDICINE [address] [place] [address] * (ABNORMAL) Comprehensive metabolic panel (09/09/2021 12:05 PM EDT) Sodium 140 136 - 144 mmol/L 09/09/2021 2:42 PM EDT [facility] Potassium 4.9 3.3 - 5.3 mmol/L 09/09/2021 2:42 PM EDT [facility] Chloride 101 98 - 107 mmol/L 09/09/2021 2:42 PM EDT [facility] CO2 27 20 - 30 mmol/L 09/09/2021 2:42 PM EDT [facility] Anion Gap 12 7 - 17 09/09/2021 2:42 PM EDT [facility] Glucose 148(H) 70 - 100 mg/dL 09/09/2021 2:42 PM EDT [facility] BUN 31(H) 6 - 20 mg/dL 09/09/2021 2:42 PM EDT [facility] Creatinine 1.40(H) 0.40 - 1.30 mg/dL 09/09/2021 2:42 PM EDT [facility] Calcium 9.5 8.8 - 10.2 mg/dL 09/09/2021 2:42 PM EDT [facility] BUN/Creatinine Ratio 22.1 8.0 - 23.0 09/2021 2:42 PM EDT [facility] Total Protein 6.4(L) 6.6 - 8.7 g/dL 09/09/2021 2:42 PM EDT [facility] Albumin 3.6 3.6 - 4.9 g/dL 09/09/2021 2:42 PM EDT [facility] Total Bilirubin 0.2 <=1.2 mg/dL 09/09/2021 2:42 PM EDT [facility] Alkaline Phosphatase 135(H) 9 - 122 U/L 09/09/2021 2:42 PM EDT [facility] Alanine Aminotransferase (ALT) 40 9 - 59 U/L 09/09/2021 2:42 PM EDT [facility] Comment:Calcium dobesilate c an cause artificially low ALT results at therapeutic concentrations Aspartate Aminotransferase (AST) 33 10 - 35 U/L 09/09/2021 2:42 PM T [facility] Globulin 2.8 2.3 - 3.5 g/dL 09/09/2021 2:42 PM T [facility] A/G Ratio 1.3 1.0 - 2.2 09/09/2021 2:42 PM EDT [facility] AST/ALT Ratio 0.8 See Comment 09/09/2021 2:42 PM T [facility] Comment: Adult with mild [...] >60 mL/min/1.7 3m2 09/09/2021 2:42 PM EDT [facility] Comment: Values under 60mL/min/1.73m2 may indicate CKD if noted for more than 3 months. eGFR is only valid if creatinine is at steady state. eGFR (NON -Chilean) 53 >60 mL/min/1.7 3m2 09/09/2021 2:42 PM EDT [facility] Comment: Values under 60mL/min/1.73m2 may indicate CKD if noted for more than 3 months. eGFR is only valid if creatinine is at steady state. Blood Venipuncture / Unknown 09/09/2021 12:05 PM EDT 09/09/2021 12:05 PM EDT Deep Pruitt MANAGER OF ADMINISTRATION LAB BLOOD ORDERABLES Final Result [facility] [address] [place] [address] * TSH w/reflex to FT4 ([facility] LMW Q YH) (09/09/2021 12:05 PM EDT) Thyroid Stimulating Hormone 3.640 See Comment IU/mL 09/09/2021 2:42 PM EDT [facility] Comment: Male & Non- Females: 0.270-4.200 IU/mL 1st Trimester: 0.110-3.480 IU/mL 2nd Trimester: 0.320-3.850 IU/mL Blood Venipuncture / Unknown 09/09/2021 12:05 PM EDT 09/09/2021 12:05 PM EDT Deep Pruitt MANAGER OF ADMINISTRATION LAB BLOOD ORDERABLES Final Result [facility] [address] [place] [address] * LDL cholesterol, direct (09/09/2021 12:05 PM EDT) LDL Direct 63 See Comment mg/dL 09/09/2021 2:41 PM EDT [facility] Comment: LDL Cholesterol (mg/dL) Adults (>=18 years) Children (<18 years) Desirable <100 <110 Above Desirable 100-129 Not Established Borderline-High 130-159 110-129 High 160-189 >=130 Very High >=190 Not Established Blood Venipuncture / Unknown 09/09/2021 12:05 PM EDT 09/09/2021 12:05 PM EDT Deep Pruitt APRN LAB BLOOD ORDERABLES Final Result [facility] [address] [place] [address], [facility] [place] [phone] * (ABNORMAL) Albumin/creatinine panel, urine, random (09/09/2021 11:01 AM EDT) Albumin, Urine, Random 1,616.3 Reference Range Not Established mg/L 09/09/2021 2:52 PM EDT [facility] Creatinine, Urine, Random 35 Reference Range Not Established mg/dL 09/09/2021 2:52 PM EDT [facility] Albumin/Creatin ine Ratio, Urine, Random 4,684.9(H ) <30.0 mg/g Cr 09/09/2021 2:52 PM EDT [facility] Comment: High albuminuria (formerly microalbuminuria): 30-300 mg/g Cr Very high albuminuria (overt albuminuria): >300 mg/g Cr Urine Collection / Unknown 09/09/2021 11:01 AM EDT 09/09/2021 11:01 AM EDT us Deep Pruitt MANAGER OF ADMINISTRATION URINE ORDERABLES Final Resu lt [facility] [address] [place] [address], [facility] [place] [phone] * (ABNORMAL) CBC auto differential (09/09/2021 10:58 AM EDT) WBC 13.5(H) 4.0 - 11.0 x1000/ L 09/09/2021 2:16 PM EDT [facility] RBC 5.05 4.00 - 6.00 M/ L 09/09/2021 2:16 PM EDT [facility] Hemoglobin 13.9 13.2 - 17.1 g/dL 09/09/2021 2:16 PM EDT [facility] Hematocrit 46.10 38.50 - 50.00 % 09/09/2021 2:16 PM EDT [facility] MCV 91.3 80.0 - 100.0 fL 09/09/2021 2:16 PM EDT [facility] MCH 27.5 27.0 - 33.0 pg 09/09/2021 2:16 PM EDT [facility] MCHC 30.2(L) 31.0 - 36.0 g/dL 09/09/2021 2:16 PM EDT [facility] RDW-CV 15.1(H) 11.0 - 15.0 % 09/09/2021 2:16 PM EDT [facility] Platelets 298 150 - 420 x1000/ L 09/09/2021 2:16 PM EDT [facility] MPV 13.0(H) 8.0 - 12.0 fL 09/09/2021 2:16 PM EDT [facility] Neutrophils 63.6 39.0 - 72.0 % 09/09/2021 2:16 PM EDT [facility] Lymphocytes 22.5 17.0 - 50.0 % 09/09/2021 2:16 PM EDT [facility] Monocytes 9.2 4.0 - 12.0 % 09/09/2021 2:16 PM EDT [facility] Eosinophils 3.6 0.0 - 5.0 % 09/09/2021 2:16 PM EDT [facility] Basophil 0.4 0.0 - 1.4 % 09/09/2021 2:16 PM EDT [facility] Immature Granulocytes 0.7 0.0 - 1.0 % 09/09/2021 2:16 PM EDT [facility] nRBC 0.0 0.0 - 1.0 % 09/09/2021 2:16 PM T [facility] ANC(Abs Neutrophil Count) 8.60(H) 2.00 - 7.60 x 1000/ L 09/09/2021 2:16 PM EDT [facility] Absolute Lymphocyte Count 3.05 0.60 - 3.70 x 1000/ L 09/09/2021 2:16 PM EDT [facility] Monocyte Absolute Count 1.24(H) 0.00 - 1.00 x 1000/ L 09/09/2021 2:16 PM EDT [facility] Eosinophil Absolute Count 0.49 0.00 - 1.00 x 1000/ L 09/09/2021 2:16 PM EDT [facility] Basophil Absolute Count 0.06 0.00 - 1.00 x 1000/ L 09/09/2021 2:16 PM T [facility] Absolute Immature Granulocyte Count 0.10 0.00 - 0.30 x 1000/ L 09/09/2021 2:16 PM T [facility] Absolute nRBC 0.00 0.00 - 1.00 x 1000/ L 09/09/2021 2:16 PM [facility] Blood Venipuncture / Unknown 09/09/2021 10:58 AM EDT 09/09/2021 10:58 AM EDT Deep Pruitt APRN LAB BLOOD ORDERABLES Final Result Performing Organization Address City/[facility]/ZIP Co de Phone Number [facility] [address] [place] [id number] [place] [address] * (ABNORMAL) Hemoglobin A1c (09/09/2021 10:58 AM EDT) Hemoglobin A1c 11.5(H) 4.0 - 5.6 % 09/10/2021 6:36 PM EDT [facility] DEPARTMENT OF LABORATORY MEDICINE Comment: [...] mg/dL 09/10/2021 6:36 PM EDT [facility] DEPARTMENT OF LABORATORY MEDICINE Comment: Estimated average glucose (eAG) is a calculated value designed to estimate the expected average blood glucose level throughout the day from a single measurement of glycated hemoglobin A1C (HbA1c) and follows the calculation proposed by the [place] Diabetes [employer] (Diabetes Care 31: 1-6, 2008). It may have less accuracy in children, women and patients with certain erythrocyte disorders. Blood Venipuncture / Unknown 09/09/2021 10:58 AM EDT 09/09/2021 10:58 AM EDT Deep Pruitt APRN LAB BLOOD ORDERABLES Final Result Performing Organization Address City/[facility]/ZIP Co de Phone Number [facility] DEPARTMENT OF LABORATORY MEDICINE [address] [place] [address], [facility] [place] [phone] documented in this encounter Visit Diagnoses Diagnosis [...] documented as of this encounter Care Teams Locomotive Crane Engineer Relationship Specialty Start Date End Date Deep Pruitt APRN PCP - General 05/22/19 documented as of this encounter
--- OUTSIDE RECORDS SUMMARY | 2025-02-25 21:06 | XMS_ITS ---
Author Organization [facility] Address [address] [place] [address] Care Team Providers Care Trade Manager Name Role Phone Katrin Santoyo Primary Care Provider [phone] Transplant Episode Kidney Candidate [facility] ([place], [place]) - LOU Evaluation began on 01/30/2025 Marked as Active on 01/30/2025 Kidney CoordinatorRadha Winter RN Phone: N/A Fax: N/A Email: N/A Scores Score Value Updated Exceptions/Reas ons CPRA Not available EPTS (Calc) 53 02/25/2025 [facility] Organ Diagnosis Organ Primary Contributory Kidney Diabetes Mellitus - Type II Care Team Name Role Phone Fax Email Radha Winter RN Kidney Coordinator N/A N/A N/A Grayson Rodriguez Referring Physician [phone] N/A Events Pre-Transplant Referred: 01/03/2025 Evaluation began: 01/30/2025 Appointments (01/26/2025 - 03/28/2025) When With Visit Type Description 01/30/2025 Transplant - Michael Lester Transplant Evaluation Visit Pre-transplant evaluation for kidney transplant (Primary Dx); Preop cardiovascular exam; Cerebrovascular accident (CVA), unspecified mechanism (HCC); Obstructive lung disease (generalized) (HCC); Pre-transplant evaluation for end stage renal disease; ESRD (end stage renal disease) (HCC) 01/30/2025 Transplant - Felicia Luna Transpla nt Evaluation Visit 01/30/2025 Transplant - Otilia Winter Transpl ant Evaluation Visit Pre-transplant evaluation for kidney transplant (Primary Dx) 01/30/2025 Transplant - Peter Crane Transpla nt Evaluation Visit Pre-transplant evaluation for kidney transplant (Primary Dx) 03/05/2025 Transplant - Destiney Pagan nt Evaluation Visit Dialysis History Dialysis History Start End Type Comments Center 12/24/2024 Christina [facility] Dialysis Center Information Center Phone Fax Address [facility] [phone] [place] [phone]
[2025-02-25 21:53] LABS: Troponin-I High Sensitivity 21.6 ng/L (<3.5-35.0)
[2025-02-26] VITALS: BP 153/65; PULSE 89; RESP 16; TEMP 37.1; O2SAT 97
== END 2025-02-26 00:27 | disposition home or self-care (01) ==
PROVIDERS: Physician Assistant; Physician Assistant Medical; Emergency Provider Emergency Medicine; PCP Student in an Organized Health Care Education/Training Program
DX: J18.9 Pneumonia, unspecified organism (principal); R10.22 Pelvic and perineal pain left side; R07.89 Other chest pain; E11.9 Type 2 diabetes mellitus without complications; Z79.899 Other long term (current) drug therapy; Z79.4 Long term (current) use of insulin
CPT/HCPCS: 36415; 74176; 80053; 80307; 81001; 83690; 84484; 85025; 93005; 99284; 99285

== ENCOUNTER → 2025-02-25 15:19 | Outpatient (BNV) | payer MEDICAID, SELFPAY | PROVIDERS: Emergency Provider Emergency Medicine; PCP Student in an Organized Health Care Education/Training Program; Visit Provider Internal Medicine Cardiovascular Disease | DX: R07.9 Chest pain, unspecified (principal) | CPT/HCPCS: 93010 ==

== ENCOUNTER → 2025-02-25 20:53 | Outpatient (BNV) | payer MEDICAID, SELFPAY | PROVIDERS: PCP Student in an Organized Health Care Education/Training Program; Visit Provider Radiology Diagnostic Radiology | DX: N32.89 Other specified disorders of bladder (principal); R91.8 Other nonspecific abnormal finding of lung field | CPT/HCPCS: 74176 ==

== ENCOUNTER → 2025-03-08 23:59 | Outpatient (BNV) | payer MEDICAID, SELFPAY | PROVIDERS: PCP Student in an Organized Health Care Education/Training Program; Visit Provider Internal Medicine Nephrology | DX: N18.6 End stage renal disease (principal) | CPT/HCPCS: 90961 ==

== ENCOUNTER → 2025-03-18 10:48 | Outpatient (REF) | payer MEDICAID, SELFPAY ==
--- OUTSIDE RECORDS SUMMARY | 2025-03-18 12:35 | XMS_ITS | Encounter Summary ---
Author Organization [facility] Address [address] [place] [address] Care Team Providers Care Assessment Manager Name Role Phone Deep Pruitt JOHN Primary Care Provider [phone] Reason for Visit * Reason Comments Medication Refill Encounter Details Date Type Department Care Team (Late st Contact Info) Description 07/20/2020 Refill [facility] Podiatry at [address] [place] [address] [phone] Arben Fountain, NOLVIA [address] [place] [address] Medication Refill Social History Tobacco Use [...] No 01/03/2020 Social Connection and Isolation Panel Answer Date Recorded In a typical week, [...] documented as of this encounter Care Teams Assessment Manager Relationship Specialty Start Date End Date Deep Pruitt APRN PCP - General 05/22/19 documented as of this encounter
--- OUTSIDE RECORDS SUMMARY | 2025-03-18 12:35 | XMS_ITS | Encounter Summary ---
Author Organization [facility] Address [address] [place] [address] Care Team Providers Care Systems Integration Analyst Name Role Phone Deep Pruitt APRN Primary Care Provider [phone] Reason for Visit * Reason Comments Medication Refill Encounter Details Date Type Department Care Team ([facility] st Contact Info) Description 07/29/2020 Refill [facility] [address] [place], [place] [phone] Deep Pruitt, JOHN [address] [place] [phone] Medication Refill Social History Tobacco Use [...] 2 07/07/2020 [facility] - [...] as of this encounter Care Teams Systems Integration Analyst Relationship Specialty Start Date End Date Deep Pruitt APRN PCP - General 05/22/19 documented as of this encounter
--- OUTSIDE RECORDS SUMMARY | 2025-03-18 12:35 | XMS_ITS | Encounter Summary ---
Author Organization [facility] Address [address] [place] [address] Care Team Providers Care Table Games Manager Name Role Phone Deep Pruitt APRN Primary Care Provider Reason for Visit * Reason Comments Other Encounter Details Date Type Department Care Team ([facility] Contact Info) Description 05/24/2022 Telephone [facility] [address] [place] [address] Deep Pruitt APRN [address] [place] [phone] Other Social History Tobacco Use Types [...] you attend chur ch or holiness services? More than 4 times per year [...] Date Recorded PHQ-2 Total Score 2 02/17/2022 [facility] - Occupational Stress Questionnaire Answer [...] your living situation today? I have a [facility] place to live 05/19/2022 Sex and [...] AM EST Patient best call back number [phone]. Patient has an upcoming appt with his [...] documented as of this encounter Care Teams Table Games Manager Relationship Specialty Start Date End Date Deep Pruitt APRN PCP - General 05/22/19 documented as of this encounter
--- OUTSIDE RECORDS SUMMARY | 2025-03-18 12:35 | XMS_ITS | Encounter Summary ---
Author Organization [facility] Address [address] [place] [address] Care Team Providers Care Forepart Reducer Name Role Phone Deep Pruitt APRN Primary Care Provider Reason for Visit * Reason Comments Medication Refill Encounter Details Date Type Department Care Team ([facility] st Contact Info) Description 06/07/2022 Refill [facility] [address] [place], [place] [phone] Deep Pruitt APRN [address] [place] [address] Medication Refill Social History Tobacco [...] Recorded PHQ-2 Total Score 2 02/17/2022 [facility] - Occupational Stress Questionnaire [...] your living situation today? I have a [facility] place to live 05/19/2022 Sex and [...] documented as of this encounter Care Teams Forepart Reducer Relationship Specialty Start Date End Date Deep Pruitt APRN PCP - General 05/22/19 documented as of this encounter
--- OUTSIDE RECORDS SUMMARY | 2025-03-18 12:35 | XMS_ITS | Encounter Summary ---
Author Organization [facility] [employer] [facility] Address [address] [place] [address] Care Team Providers Care Meal Cook Name Role Phone Deep Pruitt APRN Primary Care Provider Reason for Visit * Reason Comments DME Encounter Details Date Type Department Care Team ([facility] st Contact Info) Description 05/04/2022 Documentation Sleep Medicine Program at [address] [place] [address] [phone] Jarad De Leon MD [address] [place] [phone] Social History Tobacco Use Types Packs/Day [...] Date Recorded PHQ-2 Total Score 2 02/17/2022 [facility] [...] documented as of this encounter Care Teams Meal Cook Relationship Specialty Start Date End Date Deep Pruitt APRN PCP - General 05/22/19 documented as of this encounter
--- OUTSIDE RECORDS SUMMARY | 2025-03-18 12:35 | XMS_ITS | Encounter Summary ---
Author Organization [employer] Address [address] [facility] [address] [place] [address] Care Team Providers Care Typewriter Ribbon Winder Name Role Phone Katrin Santoyo MD Primary Care Pro vider Edison Vieira MD Unavailable [phone] Joe Devi MD Unavailable [phone] Chuy Mcmanus MD Unavailable Sveta Lazaro RN Unavailable [phone] Leslie Kline Unavailable Reason for Visit * Reason Comments Med Refill Encounter Details Date Type Department Care Team (Late st Contact Info) Description 02/11/2024 Refill [facility] MEDIC[facility] [address] [place] [address] Moriah Herbert FNP [address] [place] [address] Chronic radicular lumbar pain Social History Tobacco [...] the past 12 months, has t he [employer], gas, oil or water [employer] threatened to shut off services in your [...] documented as of this encounter Care Teams Typewriter Ribbon Winder Relationship Specialty Start Date End Date Katrin Santoyo MD [address] [place] [address] PCP - General Internal Medicine 12/13/22 Edison Vieira MD [address] [place] [address] Pulmonary Disease 04/07/24 Joe Devi MD [address]rd [place] [address] Gastroenterology 04/07/24 Chuy Mcmanus MD [address] [place] [address] [place] [address] Bariatrics 09/25/24 Sveta Lazaro RN [address] [place] [address] Registered Nurse Family Medicine 11/29/24 Leslie Kline 11/29/24 Carito Roche DNP [address] [facility], [address] [place] [address] Nephrology 04/07/24 [employer] 04/11/24 12/18/24 [facility] 12/14/24 documented as of this encounter
--- OUTSIDE RECORDS SUMMARY | 2025-03-18 12:35 | XMS_ITS | Encounter Summary ---
Author Organization [facility] Address [address] [place] [address] Care Team Providers Care Paraprofessional Aide Teacher Name Role Phone BenedictDeep medina Niko LOPEZ Primary Care Provider Reason for Visit * Reason Comments Medication Refill Encounter Details Date Type Department Care Team ([facility] st Contact Info) Description 07/03/2020 Refill [facility] Nutrition at [address] [facility] [address] [place] [phone] Zena Hines PA [address] [place] [phone] Medication Refill Social History Tobacco Use [...] for Metformin received. Pt was engaging with [facility] and continues with PCP. Unclear [...] documented as of this encounter Care Teams Paraprofessional Aide Teacher Relationship Specialty Start Date End Date Deep Pruitt APRN PCP - General 05/22/19 documented as of this encounter
--- OUTSIDE RECORDS SUMMARY | 2025-03-18 12:35 | XMS_ITS | Encounter Summary ---
Author Organization [facility] Address [address] [place] [address] Care Team Providers Care Hog Raiser Name Role Phone Deep Pruitt APRN Primary Care Provider Encounter Details Date Type Department Care Team (Late st Contact Info) Description 06/11/[address] [facility] [address] [facility], 2nd floor [facility], [address] [place], [place] [phone] Isha Brown APRN [address] [place] [address] Social History Tobacco Use Types [...] Recorded PHQ-2 Total Score 3 05/31/2021 [facility] [...] as of this encounter Care Teams Hog Raiser Relationship Specialty Start Date End Date Deep Pruitt APRN PCP - General 05/22/19 documented as of this encounter
--- OUTSIDE RECORDS SUMMARY | 2025-03-18 12:35 | XMS_ITS | Encounter Summary ---
Author Organization [facility] Address [address] [place] [address] Care Team Providers Care Estimator Printing Name Role Phone Deep Pruitt APRN Primary Care Provider Reason for Visit * Reason Comments Medication Refill Encounter Details Date Type Department Care Team ([facility] st Contact Info) Description 06/30/2021 Refill [facility] [address] [place], [place] [phone] Deep Pruitt APRN [address] [place] [address] Medication Refill Social History Tobacco [...] documented as of this encounter Care Teams Estimator Printing Relationship Specialty Start Date End Date Deep Pruitt APRN PCP - General 05/22/19 documented as of this encounter
--- OUTSIDE RECORDS SUMMARY | 2025-03-18 12:35 | XMS_ITS | Encounter Summary ---
Author Organization [facility] Address [address] [place] [address] Care Team Providers Care Ferryboat Pilot Name Role Phone Deep Pruitt APRN Primary Care Provider Reason for Visit * Reason Comments Medication Refill Encounter Details Date Type Department Care Team ([facility] st Contact Info) Description 07/10/2020 Refill [facility] [address] [place] [address] Deep Pruitt APRN [address] [place] [phone] Medication Refill Social History Tobacco Use [...]
--- OUTSIDE RECORDS SUMMARY | 2025-03-18 12:35 | XMS_ITS | Encounter Summary ---
Author Organization [facility] Address [address] [place] [address] Care Team Providers Care Credit Card Clerk Name Role Phone Deep Pruitt APRN Primary Care Provider Reason for Visit * Reason Comments Medication Refill Encounter Details Date Type Department Care Team ([facility] st Contact Info) Description 06/19/2020 Refill [facility] [address] [place] [address] Deep Pruitt APRN [address] [place] [phone] Medication Refill Social History Tobacco Use [...] Answer Date Recorded PHQ-2 Score 0 03/13/2020 [facility] [place] of Occupat ional Health - Occupational Stress [...] as of this encounter Care Teams Credit Card Clerk Relationship Specialty Start Date End Date Deep Pruitt APRN PCP - General 05/22/19 documented as of this encounter
--- OUTSIDE RECORDS SUMMARY | 2025-03-18 12:35 | XMS_ITS | Encounter Summary ---
Author Organization [facility] Address [address] [place] [address] Care Team Providers Care Lan Specialist Name Role Phone Deep Pruitt APRN Primary Care Provider [phone] Encounter Details Date Type Department Care Team ([facility] st Contact Info) Description 06/25/2021 Telephone [facility] [address] [place] [address] Deep Pruitt APRN [address] [place] [address] Social History Tobacco Use Types [...] documented as of this encounter Care Teams Lan Specialist Relationship Specialty Start Date End Date Deep Pruitt APRN PCP - General 05/22/19 documented as of this encounter
--- OUTSIDE RECORDS SUMMARY | 2025-03-18 12:36 | XMS_ITS | Encounter Summary ---
Author Organization [facility] Address [address] [place] [address] Care Team Providers Care Police Patrol Officer Name Role Phone Deep Pruitt APRN Primary Care Provider Reason for Visit * Reason Comments Medication Refill Encounter Details Date Type Department Care Team (Late st Contact Info) Description 06/19/2020 Refill [facility] [address] [place], [place] [address] Janel Cummins APRN [address] [place] [phone] Medication Refill Social History Tobacco Use Types [...]
--- OUTSIDE RECORDS SUMMARY | 2025-03-18 12:36 | XMS_ITS | Encounter Summary ---
Author Organization [facility] Address [address] [place] [address] Care Team Providers Care Automobile And Property Underwriter Name Role Phone Deep Pruitt APRN Primary Care Provider Reason for Visit * Reason Comments Medication Refill Encounter Details Date Type Department Care Team ([facility] st Contact Info) Description 06/19/2020 Refill [facility] [address] [place] [address] Deep Pruitt APRN [address] [place] [phone] Medication Refill Social History Tobacco Use [...] Date Recorded PHQ-2 Score 0 03/13/2020 [facility] [place] of Occupat ional Health - Occupational Stress [...] as of this encounter Care Teams Automobile And Property Underwriter Relationship Specialty Start Date End Date Deep Pruitt APRN PCP - General 05/22/19 documented as of this encounter
--- OUTSIDE RECORDS SUMMARY | 2025-03-18 12:36 | XMS_ITS | Encounter Summary ---
Author Organization [facility] Address [address] [place] [address] Care Team Providers Care Superintendent Compressor Stations Name Role Phone Deep Pruitt APRN Primary Care Provider [phone] Encounter Details Date Type Department Care Team ([facility] st Contact Info) Description 06/13/2020 Scanned Document [facility] [address] [place], [place] [phone] Deep Pruitt APRN [address] [place] [address] [...] Answer Date Recorded PHQ-2 Score 0 03/13/2020 [facility] [place] of Occupat ional Health - Occupational Stress [...] as of this encounter Care Teams Superintendent Compressor Stations Relationship Specialty Start Date End Date Deep Pruitt APRN PCP - General 05/22/19 documented as of this encounter
--- OUTSIDE RECORDS SUMMARY | 2025-03-18 12:39 | XMS_ITS | Encounter Summary ---
Author Organization [employer] Address [address] [facility] 7t [place] [address] Care Team Providers Care Photo Graphics Librarian Name Role Phone Katrin Santoyo MD Primary Care Pro vider Edison Vieira MD Unavailable [phone] Joe Devi MD Unavailable [phone] Chuy Mcmanus MD Unavailable Sveta Lazaro RN Unavailable [phone] Leslie Kline Unavailable Reason for Visit * Reason Onset Date Comments Durable Medical Equipment 11/08/2023 Encounter Details Date Type Department Care Team (Late st Contact Info) Description 11/08/[address] [facility] [address] [place], [place] [phone] Katrin Santoyo MD [address] [place], [place] [phone] Durable Medical Equipment Social History Tobacco Use [...] the past 12 months, has t he [employer], gas, oil or water [employer] threatened to shut off services in your [...] 11/10/2023 11:01 AM EDT Call placed to [employer] spoke to Zhen who was informed on 10/31/23 we faxed over RX with the qty on it. He reports that what they need is the letter of medical necessity not the Rx. He reports he will fax it to [id number] at [phone] and once signed and faxed back it will be all set. Awaiting do cument. * Telephone Encounter - Mauricio Taylor - 11/08/2023 3:57 PM EDT Tc from Tanya at [facility] calling to report the DME is missing [...] as of this encounter Care Teams Photo Graphics Librarian Relationship Specialty Start Date End Date Katrin Santoyo MD [address] [place] [address] PCP - General Internal Medicine 12/13/22 Edison Vieira MD [address] [place] [address] Pulmonary Disease 04/07/24 Joe Devi MD [address] [place] [address] [address] [place] [address] Gastroenterology 04/07/24 Chuy Mcmanus MD [address] [place] [address] [place] [address] Bariatrics 09/25/24 Sveta Lazaro RN [address] [place] [address] Registered Nurse Family Medicine 11/29/24 Leslie Kline 11/29/24 Carito Roche DNP [address] [facility], [address] [place] [address] Nephrology 04/07/24 [employer] 04/11/24 12/18/24 [facility] 12/14/24 documented as of this encounter
--- OUTSIDE RECORDS SUMMARY | 2025-03-18 12:43 | XMS_ITS | Encounter Summary ---
Author Organization [facility] Address [address] [place] [address] Care Team Providers Care Parts Consultant Name Role Phone Deep Pruitt JOHN Primary Care Provider [phone] Reason for Visit * Reason Comments Medication Refill Encounter Details Date Type Department Care Team (Late st Contact Info) Description 05/12/2021 Refill [facility] Podiatry at [address] [place] [phone] Arben Fountain, NOLVIA [address] [place] [address] Medication Refill Social History Tobacco [...] Score 0 04/21/2021 [facility] - [...] documented as of this encounter Care Teams Parts Consultant Relationship Specialty Start Date End Date Deep Pruitt APRN PCP - General 05/22/19 documented as of this encounter
--- OUTSIDE RECORDS SUMMARY | 2025-03-18 12:43 | XMS_ITS | Encounter Summary ---
Author Organization [facility] Address [address] [place] [address] Care Team Providers Care Lead Setter Name Role Phone Sonal Deep Niko LOPEZ Primary Care Provider [phone] Reason for Visit * Reason Comments Medication Refill Encounter Details Date Type Department Care Team ([facility] st Contact Info) Description 05/10/2021 Refill [facility] [address] [place] [phone] Aliya Pond, [address] [address] Medication Refill Social History Tobacco [...] Date Recorded PHQ-2 Total Score 0 04/21/2021 [facility] of Occupat ional [...] as of this encounter Care Teams Lead Setter Relationship Specialty Start Date End Date Deep Pruitt APRN PCP - General 05/22/19 documented as of this encounter
--- OUTSIDE RECORDS SUMMARY | 2025-03-18 12:45 | XMS_ITS | Encounter Summary ---
Author Organization [facility] Address [address] [place] [address] Care Team Providers Care Architectural Examiner Name Role Phone Deep Pruitt APRN Primary Care Provider Encounter Details Date Type Department Care Team (Late st Contact Info) Description 04/08/2021 [facility] Specimens [address] [place] [address] Isha Brown APRN [address] [place] [address] Persons encountering health services in [...] Date Recorded PHQ-2 Total Score 1 03/24/2021 [facility] of Occupat ional Health [...] Date/Time Associated Diagnosis Comments BLOOD GAS, ARTERIAL ([facility]) Routine 04/08/2021 12:44 PM EST documented in this encounter Results * (ABNORMAL) Blood gas, arterial () (04/08/2021 12:44 PM EST) pH Arterial 7.37 7.35 - 7.45 units 04/08/2021 12:[address] [facility] DEPARTMENT OF LABORATORY MEDICINE pCO2, Arterial 49(H) 32 - 48 mmHg 04/08/20 21 12:[address] [facility] DEPARTMENT OF LABORATORY MEDICINE pO2, Arterial 65(L) 83 - 108 mmHg 04/08/2021 12:[address] [facility] DEPARTMENT OF LABORATORY MEDICINE O2 Sat, Arterial 89(L) 94 - 98 % 04/08/20 12:[address] [facility] DEPARTMENT OF LABORATORY MEDICINE Calculated HCO3, Arterial 27.5 21.0 - 28.0 mmol/L 04/08/2021 12:[address] [facility] DEPARTMENT OF LABORATORY MEDICINE Base Excess, Arterial 2 -2 - 3 mmol/L 04/08/2021 12:[address] [facility] DEPARTMENT OF LABORATORY MEDICINE Patient Temperature 37.0 Celsius 04/08/2021 12:54 PM EST [facility] DEPARTMENT OF LABORATORY MEDICINE FIO2 21 % 04/08/2021 12:54 PM EST [facility] DEPARTMENT OF LABORATORY MEDICINE Blood, Arterial 04/08/2021 1 2:44 PM EST 04/08/2021 12:45 PM EST Isha Brown FUELS ENGINEER LAB BLOOD ORDERABL ES Final Result Performing Organization Address [facility] [place] de Phone Number [facility] DEPARTMENT OF LABORATORY MEDICINE [address] [place] [address] documented in this encounter Visit Diagnoses Diagnosis [...] documented as of this encounter Care Teams Architectural Examiner Relationship Specialty Start Date End Date Deep Pruitt APRN PCP - General 05/22/19 documented as of this encounter
--- OUTSIDE RECORDS SUMMARY | 2025-03-18 12:45 | XMS_ITS | Encounter Summary ---
Author Organization [facility] Address [address] [place] [address] Care Team Providers Care Band Maker Name Role Phone Sonal Deep Niko LOPEZ Primary Care Provider [phone] Reason for Visit * Reason Comments Medication Refill Encounter Details Date Type Department Care Team ([facility] st Contact Info) Description 04/07/2021 Refill [facility] [address] [place] [address] [phone] Aliya Pond, [address] [address] Medication Refill Social History Tobacco [...] as of this encounter Care Teams Band Maker Relationship Specialty Start Date End Date Deep Pruitt APRN PCP - General 05/22/19 documented as of this encounter
--- OUTSIDE RECORDS SUMMARY | 2025-03-18 12:45 | XMS_ITS | Encounter Summary ---
Author Organization [facility] Address [address] [place] [address] Care Team Providers Care Porcelain Finish Sprayer Name Role Phone Deep Pruitt APRN Primary Care Provider Reason for Visit * Reason Comments Medication Refill Encounter Details Date Type Department Care Team ([facility] st Contact Info) Description 05/27/2020 Telephone [facility] [address] [place] [address] Deep Pruitt APRN [address] [place] [address] Medication Refill Social History Tobacco [...] Answer Date Recorded PHQ-2 Score 0 03/13/2020 [facility] [place] of Occupat ional Health - Occupational Stress [...] medications and request someone calls him at [phone] documented in this encounter Plan of Treatment [...] documented as of this encounter Care Teams Porcelain Finish Sprayer Relationship Specialty Start Date End Date Deep Pruitt APRN PCP - General 05/22/19 documented as of this encounter
--- OUTSIDE RECORDS SUMMARY | 2025-03-18 12:45 | XMS_ITS | Encounter Summary ---
Author Organization [facility] Address [address] [place] [address] Care Team Providers Care Bicycle I Assembler Name Role Phone Sonal Deep Niko LOPEZ Primary Care Provider +1- [phone] Reason for Visit * Reason Comments Medication Refill Encounter Details Date Type Department Care Team ([facility] st Contact Info) Description 05/05/2021 Refill [facility] [address] [place] [phone] Aliya Pond, [address] [address] Medication Refill Social History Tobacco [...] Date Recorded PHQ-2 Total Score 0 04/21/2021 [facility] of Occupat ional Health [...] as of this encounter Care Teams Bicycle I Assembler Relationship Specialty Start Date End Date Deep Pruitt APRN PCP - General 05/22/19 documented as of this encounter
--- OUTSIDE RECORDS SUMMARY | 2025-03-18 12:45 | XMS_ITS ---
Author Organization [employer] Address [address] [facility] 7t [place] [address] Care Team Providers Care Rod Cup Filler Name Role Phone Katrin Santoyo MD Primary Care Pro vider Edison Vieira MD Unavailable [phone] Joe Devi MD Unavailable [phone] Chuy Mcmanus MD Unavailable Sveta Lazaro RN Unavailable [phone] Leslie Kline Unavailable CM Complex Status:Outreach In Progress (Enrolling) Start date:11/29/2024 Enrollment reason:ADT Feed Overview [facility] 11/28/24 Case Team Name Relationship Phone Sveta Lazaro RN(Responsible Staff) Registered Nurse [phone] Continued Care and Services Coordination
--- OUTSIDE RECORDS SUMMARY | 2025-03-18 12:45 | XMS_ITS | Encounter Summary ---
Author Organization [facility] Address [address] [place] [address] Care Team Providers Care Patient Transporter Name Role Phone Deep Pruitt APRN Primary Care Provider Reason for Visit * Reason Comments Medication Refill Encounter Details Date Type Department Care Team ([facility] st Contact Info) Description 03/10/2021 Refill [facility] [address] [place] [address] Deep Pruitt APRN [address] [place] [address] Medication Refill Social History Tobacco Use [...]
--- OUTSIDE RECORDS SUMMARY | 2025-03-18 12:45 | XMS_ITS | Encounter Summary ---
Author Organization [facility] Address [address] [place] [address] Care Team Providers Care Adjunct English Instructor Name Role Phone Deep Pruitt APRN Primary Care Provider Reason for Visit * Reason Comments Medication Refill Encounter Details Date Type Department Care Team ([facility] st Contact Info) Description 05/18/2020 Refill [facility] [address] [place] [address] Deep Pruitt APRN [address] [place] [address] Medication Refill Social History Tobacco Use [...] 03/13/2020 [facility] [place] of Occupat ional Health - Occupational Stress [...] documented as of this encounter Care Teams Adjunct English Instructor Relationship Specialty Start Date End Date Deep Pruitt APRN PCP - General 05/22/19 documented as of this encounter
--- OUTSIDE RECORDS SUMMARY | 2025-03-18 12:45 | XMS_ITS | Encounter Summary ---
Author Organization [facility] Address [address] [place] [address] Care Team Providers Care Industrial Editor Name Role Phone Deep Pruitt APRN Primary Care Provider [phone] Reason for Visit * Reason Comments Medication Refill Encounter Details Date Type Department Care Team ([facility] st Contact Info) Description 05/13/2020 Refill [facility] [address] [employer] [place], [place] [address] Deep Pruitt APRN [address] [place] [address] Medication Refill Social History Tobacco [...] as of this encounter Care Teams Industrial Editor Relationship Specialty Start Date End Date Deep Pruitt APRN PCP - General 05/22/19 documented as of this encounter
--- OUTSIDE RECORDS SUMMARY | 2025-03-18 12:45 | XMS_ITS | Encounter Summary ---
Author Organization [facility] Address [address] [place] [address] Care Team Providers Care Child And Adolescent Psychiatrist Name Role Phone Sonal Deep Niko LOPEZ Primary Care Provider [phone]- [phone] Reason for Visit * Reason Comments Medication Refill Encounter Details Date Type Department Care Team ([facility] st Contact Info) Description 05/03/2021 Refill [facility] [address] [place] [phone] Aliya Pond, [address] [address] Medication Refill Social History Tobacco [...] Score 0 04/21/2021 [facility] of Occupat ional Health [...] this encounter Care Teams Child And Adolescent Psychiatrist Relationship Specialty Start Date End Date Deep Pruitt APRN PCP - General 05/22/19 documented as of this encounter
--- OUTSIDE RECORDS SUMMARY | 2025-03-18 12:45 | XMS_ITS | Encounter Summary ---
Author Organization [facility] Address [address] [place] [address] Care Team Providers Care Remote Control Assembler Name Role Phone Deep Pruitt Niko LOPEZ Primary Care Provider Reason for Visit * Reason Comments Medication Refill Encounter Details Date Type Department Care Team (Late st Contact Info) Description 05/06/[address] [phone] Arben Fountain, NOLVIA [address] [place] [address] Medication Refill Social History Tobacco [...] documented as of this encounter Care Teams Remote Control Assembler Relationship Specialty Start Date End Date Deep Pruitt APRN PCP - General 05/22/19 documented as of this encounter
--- OUTSIDE RECORDS SUMMARY | 2025-03-18 12:45 | XMS_ITS | Encounter Summary ---
Author Organization [facility] Address [address] [place] [address] Care Team Providers Care Unit Clerk Name Role Phone Sonal Deep Niko LOPEZ Primary Care Provider [phone]- [phone] Reason for Visit * Reason Comments Medication Refill Encounter Details Date Type Department Care Team ([facility] st Contact Info) Description 04/12/2021 Refill [facility] [address] [place] [phone] Aliya Pond, [address] [address] Medication Refill Social History Tobacco [...] as of this encounter Care Teams Unit Clerk Relationship Specialty Start Date End Date Deep Pruitt APRN PCP - General 05/22/19 documented as of this encounter
--- OUTSIDE RECORDS SUMMARY | 2025-03-18 12:45 | XMS_ITS | Encounter Summary ---
Author Organization [facility] Address [address] [place] [address] Care Team Providers Care Yeast Pusher Name Role Phone Deep Pruitt APRN Primary Care Provider Reason for Visit * Reason Comments Medication Refill Encounter Details Date Type Department Care Team ([facility] st Contact Info) Description 02/25/2022 Refill [facility] [address] [place], [place] [phone] Deep Pruitt, JOHN [address] [place] [phone] Medication Refill Social History Tobacco Use [...] as of this encounter Care Teams Yeast Pusher Relationship Specialty Start Date End Date Deep Pruitt APRN PCP - General 05/22/19 documented as of this encounter
--- OUTSIDE RECORDS SUMMARY | 2025-03-18 12:45 | XMS_ITS | Encounter Summary ---
Author Organization [facility] Address [address] [place] [address] Care Team Providers Care Rolls Mill Operator Name Role Phone Frew[place]Deep medina Niko OLPEZ Primary Care Provider [phone] Reason for Visit * Reason Comments Medication Refill Encounter Details Date Type Department Care Team ([facility] st Contact Info) Description 04/07/2021 Refill [facility] [address] [facility] [address] [place] [phone] Zena Hines PA [address] [place] [address] Medication Refill Social History Tobacco Use [...] Date Recorded PHQ-2 Total Score 1 03/24/2021 [facility] of Occupat ional [...] Please review pt no longer seeing Zena Peoplesurenco for DM management at [facility]. Nate, Katrin documented in this encounter [...] documented as of this encounter Care Teams Rolls Mill Operator Relationship Specialty Start Date End Date Deep Pruitt APRN PCP - General 05/22/19 documented as of this encounter
--- OUTSIDE RECORDS SUMMARY | 2025-03-18 12:45 | XMS_ITS | Encounter Summary ---
Author Organization [facility] Address [address] [place] [address] Care Team Providers Care Ruby On Rails Developer Name Role Phone Romelia Pruittian Niko LOPEZ Primary Care Provider Encounter Details Date Type Department Care Team (Late st Contact Info) Description 03/18/2021 Scanned Document [facility] [address] [place] [address] External, Provider Social History Tobacco Use Types [...] Date Recorded PHQ-2 Total Score 2 03/10/2021 [facility] of Occupat ional Health [...] documented as of this encounter Care Teams Ruby On Rails Developer Relationship Specialty Start Date End Date Deep Pruitt APRN PCP - General 05/22/19 documented as of this encounter
--- OUTSIDE RECORDS SUMMARY | 2025-03-18 12:45 | XMS_ITS | Encounter Summary ---
Author Organization [facility] Address [address] [place] [address] Care Team Providers Care Rn Patient Care Name Role Phone PhoenixDeep medina Niko LOPEZ Primary Care Provider [phone] Reason for Visit * Reason Comments Medication Refill Encounter Details Date Type Department Care Team ([facility] st Contact Info) Description 05/12/2020 Refill [facility] at [address] [facility] [address] [place] [phone] Zena Hines PA [address] [place] [phone] Medication Refill Social History Tobacco Use [...] Answer Date Recorded PHQ-2 Score 0 03/13/2020 [facility] Occupat ional Health [...] Pike Please review pt no longer seeing [facility] Wellness Dept for DM management. Katrin [...]
--- OUTSIDE RECORDS SUMMARY | 2025-03-18 12:45 | XMS_ITS | Encounter Summary ---
Author Organization [facility] [employer] and [facility] Address [address] [place] [phone] Care Team Providers Care Chief Internal Auditor Name Role Phone Deep Pruitt APRN Primary Care Provider Reason for Visit * Reason Comments DME Encounter Details Date Type Department Care Team (Late st Contact Info) Description 04/11/2022 Documentation Sleep Medicine Program at [address] [place] [address] Jarad De Leon MD [address] [place] [phone] Social History Tobacco Use Types Packs/Day [...] as of this encounter Care Teams Chief Internal Auditor Relationship Specialty Start Date End Date Deep Pruitt APRN PCP - General 05/22/19 documented as of this encounter
--- OUTSIDE RECORDS SUMMARY | 2025-03-18 12:45 | XMS_ITS ---
Author Organization [employer] Address [address] [facility] [address] [place] [address] Care Team Providers Care Retail Sales Consultant Name Role Phone Katrin Santoyo MD Primary Care Pro vider Edison Vieira MD Unavailable [phone] Joe Devi MD Unavailable [phone] Chuy Mcmanus MD Unavailable Sveta Lazaro RN Unavailable Leslie Kline Unavailable [facility] Status:Outreach In Progress (Enrolling) Start date:11/29/2024 Enrollment reason:ADT Feed Overview [facility] ED 11/28/24. Please outreach for enrollment. Case Team Name Relationship Phone Leslie Kline(Responsible Staff) [phone] Continued Care and Services Coordination
--- OUTSIDE RECORDS SUMMARY | 2025-03-18 12:45 | XMS_ITS | Encounter Summary ---
Author Organization [facility] Address [address] [place] [address] Care Team Providers Care Warp Placer Name Role Phone Deep Pruitt APRN Primary Care Provider Reason for Visit * Reason Comments Medication Refill Encounter Details Date Type Department Care Team ([facility] st Contact Info) Description 03/19/2022 Refill [facility] [address] [place], [place] [phone] Deep Pruitt, JOHN [address] [place] [address] [...] as of this encounter Care Teams Warp Placer Relationship Specialty Start Date End Date Deep Pruitt APRN PCP - General 05/22/19 documented as of this encounter
--- OUTSIDE RECORDS SUMMARY | 2025-03-18 12:46 | XMS_ITS | Encounter Summary ---
Author Organization [facility] Address [address] [place] [address] Care Team Providers Care Emergency Technician Name Role Phone Deep Pruitt APRN Primary Care Provider Reason for Visit * Reason Comments Medication Refill Encounter Details Date Type Department Care Team ([facility] st Contact Info) Description 03/20/2021 Refill [facility] [address] [place] [address] Deep Pruitt APRN [address] [place] [phone] Medication Refill Social History Tobacco Use [...] 1 03/24/2021 [facility] of Occupat ional [...] as of this encounter Care Teams Emergency Technician Relationship Specialty Start Date End Date Deep Pruitt APRN PCP - General 05/22/19 documented as of this encounter
--- OUTSIDE RECORDS SUMMARY | 2025-03-18 12:46 | XMS_ITS | Encounter Summary ---
Author Organization [facility] Address [address] [place] [address] Care Team Providers Care Warehouse Assistant Name Role Phone Deep Pruitt APRN Primary Care Provider Reason for Visit * Reason Comments Medication Problem Encounter Details Date Type Department Care Team ([facility] st Contact Info) Description 12/21/2021 [facility] [address] [place] [address] Deep Pruitt APRN [address] [place] [address] Medication Problem Social History Tobacco [...] updated information the water pill. Call back [phone] * Telephone Encounter - Sarah Newman - 12/21/2021 1:05 PM EDT Best contact: [phone] Patient Sissy called and stated that she contacted [facility] on [address] and they informed that the medication furosemide (LASIX) 80 mg tablet was disconnected.Please contact patient for update. documented in this encounter Plan of Treatment Not on file documented as of this encounter Visit Diagnoses Diagnosis Edema of both feet documented in this encounter Additional Health Concerns Assessment Noted Time PHQ-9 Depression Total Score: 22 08/15/2 022 3:28 PM EDT documented as of this encounter Care Teams Warehouse Assistant Relationship Specialty Start Date End Date Deep Pruitt APRN PCP - General 05/22/19 documented as of this encounter
--- OUTSIDE RECORDS SUMMARY | 2025-03-18 12:46 | XMS_ITS | Encounter Summary ---
Author Organization [facility] Address [address] [place] [address] Care Team Providers Care Stroke Belt Sander Operator Name Role Phone Deep Pruitt APRN Primary Care Provider Reason for Visit * Reason Comments Medication Refill Encounter Details Date Type Department Care Team ([facility] st Contact Info) Description 12/18/2021 Refill [facility] [address] [place], [place] [phone] Deep Pruitt APRN [address] [place] [address] Medication Refill Social History Tobacco [...] Date Recorded PHQ-2 Total Score 4 12/20/2021 [facility] of Occupat ional [...] documented as of this encounter Care Teams Stroke Belt Sander Operator Relationship Specialty Start Date End Date Deep Pruitt APRN PCP - General 05/22/19 documented as of this encounter
--- OUTSIDE RECORDS SUMMARY | 2025-03-18 12:46 | XMS_ITS | Encounter Summary ---
Author Organization [facility] [employer] and [facility] Address [address] [place] [address] Care Team Providers Care Board Mixer Tender Name Role Phone Deep Pruitt APRN Primary Care Provider [phone] Reason for Visit * Reason Onset Date Comments Medication Refill 11/19/2021 Encounter Details Date Type Department Care Team (Late st Contact Info) Description 11/19/2021 Refill [facility] at [address] [facility] [address] [facility] 2nd [place] [address] Yue Dominguez APRN [address] [place] [phone] Medication Refill Social History Tobacco Use Types [...] Date Recorded PHQ-2 Total Score 0 11/17/2021 [facility] of Occupat ional [...] Time PHQ-9 Depression Total Score: 0 11/18/19 10:55 AM EDT documented as of this encounter Care Teams Board Mixer Tender Relationship Specialty Start Date End Date Deep Pruitt APRN PCP - General 05/22/19 documented as of this encounter
--- OUTSIDE RECORDS SUMMARY | 2025-03-18 12:46 | XMS_ITS | Encounter Summary ---
Author Organization [facility] Address [address] [place] [address] Care Team Providers Care Exceptional Student Education Aide Name Role Phone Romelia Pruittian Niko LOPEZ Primary Care Provider Reason for Visit * Reason Onset Date Comments Medication Refill 11/19/2021 Encounter Details Date Type Department Care Team (Late st Contact Info) Description 11/19/2021 Refill [facility] [address] [place] [phone] Carlos Eduardo Joyner MD [address] [place] [phone] Medication Refill Social History Tobacco Use [...] Score 0 11/17/2021 [facility] of Occupat ional Health [...] documented as of this encounter Care Teams Exceptional Student Education Aide Relationship Specialty Start Date End Date Deep Pruitt APRN PCP - General 05/22/19 documented as of this encounter
--- OUTSIDE RECORDS SUMMARY | 2025-03-18 12:46 | XMS_ITS | Encounter Summary ---
Author Organization [facility] Address [address] [place] [address] Care Team Providers Care Plan Checker Name Role Phone Romelia Pruittian Niko LOPEZ Primary Care Provider Encounter Details Date Type Department Care Team (Late st Contact Info) Description 11/30/2021 Scanned Document [facility] [address] [place] [address] External, Provider Social History Tobacco Use Types [...] documented as of this encounter Care Teams Plan Checker Relationship Specialty Start Date End Date Deep Pruitt APRN PCP - General 05/22/19 documented as of this encounter
--- OUTSIDE RECORDS SUMMARY | 2025-03-18 12:46 | XMS_ITS | Encounter Summary ---
Author Organization [facility] Address [address] [place] [address] Care Team Providers Care Geographic Information Systems Director Name Role Phone Romelia Pruittian Niko LOPEZ Primary Care Provider Reason for Visit * Reason Onset Date Comments Medication Refill 11/10/2021 Encounter Details Date Type Department Care Team (Late st Contact Info) Description 11/10/2021 Refill [facility] [address] [facility] [address] [place] [phone] Anahi Rossi, JOHN [address] [place] [phone] Medication Refill Social History Tobacco Use [...] 0 10/12/2021 [facility] Questionnaire Answer [...] documented as of this encounter Care Teams Geographic Information Systems Director Relationship Specialty Start Date End Date Deep Pruitt APRN PCP - General 05/22/19 documented as of this encounter
--- OUTSIDE RECORDS SUMMARY | 2025-03-18 12:46 | XMS_ITS | Encounter Summary ---
Author Organization [facility] Address [address] [place] [address] Care Team Providers Care Value Advisor Name Role Phone Deep Pruitt APRN Primary Care Provider [phone] Reason for Visit * Reason Comments Medication Refill Encounter Details Date Type Department Care Team ([facility] st Contact Info) Description 12/15/2021 Refill [facility] [address] [place], [place] [phone] Deep Pruitt APRN [address] [place] [address] Medication Refill Social History Tobacco [...] Date Recorded PHQ-2 Total Score 1 12/16/2021 [facility] of Occupat ional Health - [...] documented as of this encounter Care Teams Value Advisor Relationship Specialty Start Date End Date Deep Pruitt APRN PCP - General 05/22/19 documented as of this encounter
--- OUTSIDE RECORDS SUMMARY | 2025-03-18 12:46 | XMS_ITS | Encounter Summary ---
Author Organization [facility] Address [address] [place] [phone] Care Team Providers Care Communication Manager Name Role Phone Deep Pruitt JOHN Primary Care Provider [phone] Reason for Visit * Reason Comments Medication Refill Encounter Details Date Type Department Care Team (Late st Contact Info) Description 12/03/2021 Refill [facility] Podiatry at [address] [place] [phone] Arben Fountain, NOLVIA [address] [place] [address] Medication Refill Social History Tobacco Use [...] Score 0 11/17/2021 [facility] - Occupational Stress Questionnaire Answer [...] documented as of this encounter Care Teams Communication Manager Relationship Specialty Start Date End Date Deep Pruitt APRN PCP - General 05/22/19 documented as of this encounter
--- OUTSIDE RECORDS SUMMARY | 2025-03-18 12:46 | XMS_ITS | Encounter Summary ---
Author Organization [facility] Address [address] [place] [address] Care Team Providers Care Orthopedically Impaired Teacher Name Role Phone Deep Pruitt APRN Primary Care Provider [phone] Reason for Visit * Reason Comments Medication Refill Encounter Details Date Type Department Care Team ([facility] st Contact Info) Description 03/08/2021 Refill [facility] [address] [place], [place] [phone] Deep Pruitt APRN [address] [place] [address] Medication Refill Social History Tobacco [...] Recorded PHQ-2 Total Score 2 03/10/2021 [facility] of Occupat [...] documented as of this encounter Care Teams Orthopedically Impaired Teacher Relationship Specialty Start Date End Date Deep Pruitt APRN PCP - General 05/22/19 documented as of this encounter
--- OUTSIDE RECORDS SUMMARY | 2025-03-18 12:46 | XMS_ITS | Clinical Summary ---
Author Organization [facility] Address [address] [place] [address] Care Team Providers Care Die Repair Name Role Phone Katrin Santoyo Primary Care Provider [phone] Allergies Active Allergy Reactions Criticality Noted Date [...] Encounters Date Type Department Care Team Description 03/11/2025 9:56 AM EST - 03/11/2025 11:59 PM EST Hospital Encounter [facility] ACC Vascular Lab [address] [place] [address] Discharge Disposition: Home or Self Care (01) 03/05/2025 Orders Only [facility] Transplant Department [address] [place] [address] Deep Pagan MD 01/30/2025 12:05 PM EDT Lab [facility] [place] [facility] Draw Site [address] [place] [address] Pre-transplant evaluation for end stage renal disease; Weak urine stream; Type 2 diabetes mellitus with chronic kidney disease on chronic dialysis, 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 (HCC) 01/30/2025 10:15 AM EDT Office Visit [facility] Renal Transplant [address] [place] [address] Shashank Aguilar MD Pre-transplant evaluation for kidney transplant (Primary Dx); Preop cardiovascular exam; Cerebrovascular accident (CVA), unspecified mechanism ([facility]); Obstructive lung disease (generalized) ([facility]); Pre-transplant evaluation for end stage renal disease; ESRD (end stage renal disease) ([facility]) 01/30/2025 9:30 AM EDT Social Work [facility] Renal Transplant [address] [place] [address] Gloria Luna LICSW 01/30/2025 8:30 AM EDT Evaluation [facility] Renal Transplant [address] [place] [address] Radha Winter RN Pre-transplant evaluation for kidney transplant (Primary Dx) 01/30/2025 8:00 AM EDT Office Visit [facility] Renal Transplant [address] [place] [address] Nereida Crane RN Pre-transplant evaluation for kidney transplant (Primary Dx) 01/30/2025 Orders Only [facility] Transplant Department [address] [place] [phone] Radha Winter RN Pre-transplant evaluation for end stage renal disease (Primary Dx); Type 2 diabetes mellitus with chronic kidney disease on chronic dialysis, 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 ([facility]); Weak urine stream 01/27/2025 Telephone [facility] Transplant Department [address] [place] [address] Radha Winter RN 01/13/2025 Telephone [facility] Transplant Department [address] [place] [address] Radha Winter RN 01/13/2025 Orders Only [facility] Transplant Department [address] [place] [phone] Radha Winter RN Pre-transplant evaluation for end stage renal disease (Primary Dx); Weak urine stream; Type 2 diabetes mellitus with diabetic nephropathy, 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 (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) 01/13/2025 Orders Only [facility] Transplant Department [address] [place] [address] Radha Winter RN 01/13/2025 Telephone [facility] Transplant Department [address] [place] [address] Go Solis 01/09/2025 Telephone [facility] Transplant Department [address] [place] [address] Radha Winter RN from Last 3 Months Social History Tobacco [...] Care Team (Late st Contact Info) Description 03/25/2025 10:00 AM EST Appointment [facility] Pulmonary Function Lab [address] [place] [address] 03/25/2025 11:30 AM EST Office Visit [facility] Liver Transplant Services [address] [place] [address] Deep Pagan MD [address] [place] [address] 01/27/2026 9:00 AM EDT Follow-Up [facility] Renal Transplant [address] [place] [address] Shashank Aguilar MD [address] [place] [address] 01/27/2026 9:30 AM EDT Social Work [facility] Renal Transplant [address] [place] [address] Gloria Luna LICSW [address] [place] [address] Health Maintenance Due Date Last Done Comments [...] 03/24/2022, Additional history exists Basic Metabolic Panel 05/28/2025 02/25/2025, 025 Hemoglobin A1C 08/18/2025 02/17/2025, 01/07, 11/01/2024, Additional history exists Hemoglobin 01/30/2026 01/30/2025 PTH 01/30/2026 01/30/2025 Phosphorus 01/30/2026 01/30/2025 DTaP,Tdap,and Td Vaccines (3 - Td or Tdap) 03/24/2032 03/24/2022, 10/05/2016 Hepatitis B Vaccines Completed 04/05/2017, 10/05/2016, 08/17/2016 Pneumococcal Vaccine: 50+ Years Completed , 01/21/2021 CKD: Referral to Nephrology Completed 01/30/2025 HIV Screening Completed 01/30/2025, 0606/2024, 10/07/2024 Hepatitis C Screening Completed 01/30/2025 , 10/07/2024, 02/06/2020 Procedures * Due to [place] state law, this organization might not be sharing negative HIV tests. Procedure Name Priority Date/Time Associated Diagnosis Comments CAROTID DUPLEX SCAN BILATERAL Routine 03/11/2025 10:16 AM EST Cerebrovascular accident (CVA), unspecified mechanism HERPES SIMPLEX VIRUS 1&2 IGG W/REFLEX TO HSV-2 INHIBITION Routine 01/30/2025 12:26 PM EDT Pre-transplant evaluation for end stage renal disease Weak urine stream Type 2 diabetes mellitus with chronic kidney disease on chronic dialysis, unspecified whether mcc insulin use (HCC) ABO/RH BLOOD TYPE Routine [...] stage renal disease QUANTIFERON-TB GOLD PLUS, 1 [id number] Routine 01/30/2025 12:26 PM EDT Pre-transplant evaluation for end stage renal disease RPR (DIAGNOSIS) W/REFLEX TO TITER & TPPA [id number] Routine 01/30/2025 12:26 PM EDT Pre-transplant evaluation for end stage renal disease VARICELLA ZOSTER ANTIBODY, IGG Routine 01/30/2025 12:26 PM EDT Pre-transplant evaluation for end stage renal disease HLA TRANSPLANT WORK-UP (ALLELE LEVEL A/B/C/DRB1/YNA679/DQA1/ DQB1/DPA1/DPB1) Routine 01/30/2025 12:26 PM EDT Pre-transplant [...] kidney disease on chronic dialysis, unspecified whether mcc insulin use (HCC) PTH, INTACT (WITHOUT CALCIUM) Routine 01/30/2025 12:26 PM EDT Pre-transplant evaluation for end stage renal disease PSA Routine 01/30/2025 12:26 PM EDT Pre-transplant evaluation for end stage renal disease Weak urine stream from Last 3 Months Results * Due to [facility] law, this organization might not be sharing negative HIV tests. * CAROTID DUPLEX SCAN BILATERAL (03/11/2025 10:16 AM EST) PSV Common Carotid Distal Arterial Left 81.4 cm/s EDV Common Carotid Distal Arterial Left 21.7 cm/s PSV Common Carotid Proximal Arterial Left 128 cm/s EDV Common Carotid Proximal Arterial Left 25.1 cm/s PSV Internal Carotid Distal Arterial Left 56.7 cm/s EDV Internal Carotid Distal Arterial Left 24.4 cm/s PSV Internal Carotid Proximal Arterial Left 54.7 cm/s EDV Internal Carotid Proximal Arterial Left 21.1 cm/s PSV Vertebral Arterial Left 44.3 cm/s PSV Common Carotid Distal Arterial Right 75.8 cm/s EDV Common Carotid Distal Arterial Right 23 cm/s PSV Common Carotid Proximal Arterial Right 106 cm/s EDV Common Carotid Proximal Arterial Right 17.4 cm/s PSV Internal Carotid Distal Arterial Right 78.3 cm/s EDV Internal Carotid Distal Arterial Right 30.4 cm/s PSV Internal Carotid Proximal Arterial Right 82 cm/s EDV Internal Carotid Proximal Arterial Right 29.4 cm/s PSV Vertebral Arterial Right 54.1 cm/s PSV External Carotid Arterial Left 91.9 cm/s PSV External Carotid Arterial Right 104 cm/s Ratio Prox Internal Carotid Right 1.08 ICADistRI 1.03 Ratio Prox Internal Carotid Left 0.67 IACDISTRIL 0.70 Anatomical Region Laterality Modality Carotid Artery Ultrasound Narrative 03/13/2025 2:21 PM EST The right carotid duplex scan showed mild atherosclerotic disease consistent with 1-29% stenosis of the right internal carotid artery. The right vertebral flow was antegrade. The left carotid duplex scan showed mild atherosclerotic disease consistent with 1-29% stenosis of the left internal carotid artery. The left vertebral flow was antegrade. Right Carotid Right Internal Carotid Artery Proximal: 1-29% stenosis; mild plaque Right Vertebral Artery: flow direction: antegrade Left Carotid Left Internal Carotid Artery Proximal: 1-29% stenosis; mild plaque Left Vertebral Artery: flow direction: antegrade Tech Comments CVA Shashank Aguilar MD CV VASCULAR PROCEDURES Fi nal Result * HLA Transplan Work-Up(Allele Level A/B/C/DRB1/FQQ642/DQA1/DQB1/DPA1/DPB1) (01/30/2025 12:26 PM EDT) [facility] Histocompatibility Laboratory Information See Below 02/04/2025 5:23 PM EDT [facility] Comment: CHRISTOPHER: [id number] Director: Yamini Brandt MD. [facility] PFI: [id number] UNOS: [id number] This test was [...] testing. B*-1 B*08:01 02/04/2025 5:23 PM EDT [facility] B*-2 B*49:01 02/04/2025 5:23 PM EDT [facility] B*-[facility] 02/04/2025 5:23 PM EDT [...] 12:26 PM EDT 01/30/2025 12:35 PM EDT us Shashank Aguilar MD HLA LAB ORDERABLES Edited Result - Final [facility] [address] [facility] Rm: [id number] [place] [address], * (ABNORMAL) Herpes Simplex Virus 1&2 IgG w/Reflex to HSV-2 Inhibition (01/30/2025 12:26 PM EDT) HSV 1 IgG Type Specific Ab 44.80(H) <0.90 Index 02/03/2025 7:38 PM EDT [facility] 2 IgG Type Specific Ab <0.90 <0.90 Index 02/03/2025 7:38 PM EDT [facility] Comment: Index Values for HSV-1 and [...] test. For additional information, please refer to http://education.Independent [employer]/faq/FAQ73 (This link is being provided for informational/ educational purposes only.) Blood Structure of peripheral vein / Unknown Venipuncture / Unknown 01/30/2025 12:26 PM EDT 01/30/2025 12:36 PM EDT Narrative [facility] - 02/03/2025 7:38 PM EDT [facility] Received Date: us Shashank Aguilar MD LAB BLOOD ORDERABLES Fauzia l Result TERESA MARCOS [address] [facility] 3rd Floor, [place] [address], [place] [phone] [facility] [place] ([place]) [id number] [place], [place] , [place] * MMR Panel, IgG (01/30/2025 12:26 PM EDT) Pathologist [facility] Measles Antibody (IgG), Immune Status >300.00 AU/mL 01/31/2025 1:21 AM EDT [facility] Comment: AU/mL Interpretation ----- <13.50 Not consistent with immunity 13.50-16.49 Equivocal >16.49 Consistent with immunity The presence of measles IgG suggests immunization or past or current infection with measles virus. For additional information, please refer to http://Ubalo.[employer]/faq/EPK909 (This link is being provided for informational/ educational purposes only.) Mumps Antibody (IgG), Immune Status 89.60 AU/mL 01/31/2025 1:21 AM EDT [facility] Comment: AU/mL Interpretation ------- <9.00 Not consistent with immunity 9.00-10.99 Equivocal >10.99 Consistent with immunity The presence of mumps IgG antibody suggests immunization or past or current infection with mumps virus. Rubella Antibody (IgG), Immune Status 4.22 Index 01/31/2025 1:21 AM EDT [facility] Comment: Index Interpretation ----- <0.90 Not consistent with immunity 0.90-0.99 Equivocal > or = 1.00 Consistent with immunity The presence of rubella IgG antibody suggests immunization or past or current infection with rubella virus. Blood Structure of peripheral vein / Unknown Venipuncture / Unknown 01/30/2025 12:26 PM EDT 01/30/2025 12:37 PM EDT Narrative [facility] - 01/31/2025 1:21 AM EDT [employer] Received Date: Shashank Aguilar MD LAB BLOOD ORDERABLES Fauzia guzman Result [facility] [address] [facility] 3rd Floor, [place] [address], [place] [phone] [facility] [address] [facility] 3rd Floor, [place] [address], [place] [phone] * RPR (Diagnosis) w/Reflex to Titer & TPPA Confirm (01/30/2025 12:26 PM EDT) [facility] RPR W/Refl Titer NON-REACT NICKIE NON-REACT NICKIE 01/31/2025 11:26 AM EDT [facility] Blood Structure of peripheral vein / Unknown Venipuncture / Unknown 01/30/2025 12:26 PM EDT 01/30/2025 12:38 PM EDT Narrative [facility] - 01/31/2025 11:26 AM EDT [facility] Received Date: Shashank Aguilar MD LAB BLOOD ORDERABLES Fauzia guzman Result [facility] [address] [facility] [address] Floor, [place] [address], [facility] [address] [facility] [address], [place] [address], * QuantiFERON-TB Gold Plus, 1 Tube (01/30/2025 12:26 PM EDT) [facility] QuantiFERON-TB Gold Plus NEGATIVE NEGATIVE 02/01/2025 5:42 PM EDT [facility] Comment: Negative test result. M. tuberculosis complex infection unlikely. NIL 0.02 IU/mL 02/01/2025 5:42 PM EDT [facility] Mitogen-NIL 8.31 IU/mL 02/01/2025 5:42 PM EDT [facility] TB1-NIL 0.00 IU/mL 02/01/2025 5:42 PM EDT [facility] TB2-NIL 0.01 IU/mL 02/01/2025 5:42 PM EDT [facility] Comment: The Nil tube value reflects the [...] T-lymphocytes. For additional information, please refer to https://education.[employer]/faq/ZYP434 (This link is being provided for informational/ educational purposes only.) Blood Structure of peripheral vein / Unknown Venipuncture / Unknown 01/30/2025 12:26 PM EDT 01/30/2025 12:34 PM EDT Narrative [facility] - 02/01/2025 5:42 PM EDT [facility] Received Date:[id number] Shashank Aguilar MD LAB BLOOD ORDERABLES Fauzia l Result [facility] [address] [facility] [address], [place] [address], [place] [phone] [facility] [address] [facility] 3rd Floor, [place] [address], [place] [phone] * (ABNORMAL) CBC Auto Differential (01/30/2025 12:26 PM EDT) WBC 14.5(H) 3.8 - 10.8 10*3/uL 01/30/2025 12:47 PM EDT [facility] RBC 4.00(L) 4.20 - 5.80 10*6/uL 01/30/2025 12:47 PM EDT [facility] Hemoglobin 11.5(L) 13.2 - 17.1 g/dL 01/30/2025 12:47 PM EDT [facility] Hematocrit 36.1(L) 38.5 - 50.0 % 01/30/2025 12:47 PM EDT [facility] MCV 90.3 80.0 - 100.0 fL 01/30/2025 12:47 PM EDT [facility] MCH 28.8 27.0 - 33.0 pg 01/30/2025 12:47 PM EDT [facility] MCHC 31.9(L) 32.0 - 36.0 g/dL 01/30/2025 12:47 PM EDT [facility] RDW 14.1 11.0 - 15.0 % 01/30/2025 12:47 PM EDT [facility] Platelets 337 140 - 400 10*3/uL 01/30/2025 12:47 PM EDT [facility] MPV 12.1 7.5 - 12.5 fL 01/30/2025 12:47 PM EDT [facility] Neutrophil % 64.9 % 01/30/2025 12:47 PM EDT [facility] Immature Grans % 0.6 0.0 - 0.9 % 01/30/2025 12:47 PM EDT [facility] Lymphocyte % 17.4 % 01/30/2025 12:47 PM EDT [facility] Monocyte % 9.0 % 01/30/2025 12:47 PM EDT [facility] Eosinophil % 7.5 % 01/30/2025 12:47 PM EDT [facility] Basophil % 0.6 % 01/30/2025 12:47 PM EDT [facility] Neutrophil # 9.39(H) 1.50 - 7.80 10*3/uL 01/30/2025 12:47 PM EDT [facility] Immature Grans # 0.09(H) <=0.03 10*3/uL 01/30/2025 12:47 PM EDT [facility] Lymphocyte # 2.50 0.85 - 3.90 10*3/uL 01/30/2025 12:[address] [facility] PATHOLOG[facility] LABORATORY Monocyte # 1.30(H) 0.20 - 0.95 10*3/uL 01/30/2025 12:47 PM EDT [facility] [employer] CLINICAL PATHOLOGY LABORATORY Eosinophil # 1.10(H) 0.02 - 0.50 10*3/uL 01/30/2025 12:47 PM EDT [facility] [employer] CL[facility]ICAL PATHOLOGY LABORATORY Basophil # 0.10 0.00 - 0.20 10*3/uL 01/30/2025 12:[address] [facility] CL[facility]ICAL PATHOLOGY LABORATORY nRBC % 0.0 /100 WBCs 01/30/2025 12:47 PM EDT [facility]ed[facility] CLINICAL PATHOLOGY LABORATORY nRBC # <0.01 <0.01 10*3/uL 01/30/2025 12:[address] [facility]PITALBeCouplyMI [facility] CLINICAL PATHOLOGY LABORATORY Blood Structure of peripheral vein / Unknown Venipuncture / Unknown 01/30/2025 12:26 PM EDT 01/30/2025 12:38 PM EDT us Shashank Aguilar MD LAB BLOOD ORDERABLES Fauzia guzman Result [facility] CLINICAL PATHOLOGY LABORATORY [address] [place] [address], * (ABNORMAL) Alisha-Fink Virus VCA Antibody Panel (01/30/2025 12:26 PM EDT) EBV Viral Capsid Ag Ab (IGM) <36.00 U/mL 01/30/2025 9:20 PM EDT [facility] Comment: U/mL Interpretation ---- <36.00 Negative 36.00-43.99 Equivocal >43.99 Positive EBV Viral Capsid Ag Ab (IGG) >750.00(H) U/mL 01/30/2025 9:20 PM EDT [facility] Comment: U/mL Interpretation ---- <18.00 Negative 18.00-21.99 Equivocal >21.99 Positive EBV Nuclear Ag Ab 212.00(H) U/mL 025 9:20 PM EDT [facility] Comment: U/mL Interpretation ---- <18.00 Negative 18.00-21.99 Equivocal >21.99 Positive Interpretation: See Comments 01/30/2025 9:20 PM EDT [facility] Comment: Suggestive of a past Alisha-Fink virus infection. In infants, a similar pattern may occur as a result of passive maternal transfer of antibody. Blood Structure of peripheral vein / Unknown Venipuncture / Unknown 01/30/2025 12:26 PM EDT 01/30/2025 12:37 PM EDT Narrative [facility] - 01/30/2025 9:20 PM EDT [facility] Received Date: Shashank Aguilar MD LAB BLOOD ORDERABLES Fauzia Result [facility] [address] [facility] 3rd [address], [place] [address], [facility] [address] [facility] 3rd [address], [place] [address], * Hepatitis C Antibody w/Reflex to PCR (01/30/2025 12:26 PM EDT) Hepatitis C Antibody NON-REACT NICKIE NON-REACT NICKIE 01/31/2025 7:08 AM EDT [facility] Comment: HCV antibody was non-reactive. There is no laboratory evidence of HCV infection. In most cases, no further action is required. However, if recent HCV exposure is suspected, a test for HCV RNA (test code 77750) is suggested. For additional information please refer to http://education.[employer]/faq/UKY05r0 (This link is being provided for informational/ educational purposes only.) Blood Structure of peripheral vein / Unknown Venipuncture / Unknown 01/30/2025 12:26 PM EDT 01/30/2025 12:38 PM EDT [facility] - 01/31/2025 7:08 AM EDT [facility] Received Date:[id number] Shashank Aguilar MD LAB BLOOD ORDERABLES Fauzia l Result Performing Organization Address City/[facility]/ZIP Co de Phone Number [facility] [address], [place] [address], [place] [phone] [facility] [address], [place] [address], [place] [phone] * (ABNORMAL) Hepatitis A Antibody, Total (01/30/2025 12:26 PM EDT) Hepatitis A Ab, Total REACTIVE( A) NON-REACT NICKIE 01/31/2025 5:10 AM EDT [facility] Comment: For additional information, please refer to http://education.[employer]/faq/PTS167 (This link is being provided for informational/ educational purposes only.) Blood Structure of peripheral vein / Unknown Venipuncture / Unknown 01/30/2025 12:26 PM EDT 01/30/2025 12:37 PM EDT Андрей CARMONALISA - 01/31/2025 5:10 AM EDT [facility] Received Date:[id number] Shashank Aguilar MD LAB BLOOD ORDERABLES Fauzia l Result [facility] [address], [place] [address], [place] [phone] [facility] [address], [place] [address], [place] [phone] * Hepatitis B Core Antibody, Total (01/30/2025 12:26 PM EDT) Hepatitis B Core Ab Total NON-REACT NICKIE NON-REACT NICKIE 01/30/2025 11:48 PM EDT [facility] Comment: For additional information, please refer to http://education.[employer]/faq/VUR329 (This link is being provided for informational/ educational purposes only.) Blood Structure of peripheral vein / Unknown Venipuncture / Unknown 01/30/2025 12:26 PM EDT 01/30/2025 12:38 PM EDT Narrative [facility] - 01/30/2025 11:48 PM EDT [facility] Received Date:[id number] Shashank Aguilar MD LAB BLOOD ORDERABLES Fauzia l Result [facility] [address] [facility] [address], [place] [address], [place] [phone] [facility] [address], [place] [address], [place] [phone] * ABO/Rh Blood Type (01/30/2025 12:26 PM EDT) ABO Blood Type O 01/30/2025 1:11 PM EDT [facility] RH Type Positive 01/30/2025 1:11 PM EDT [facility] Blood Structure of peripheral vein / Unknown Venipuncture / Unknown 01/30/2025 12:26 PM EDT 01/30/2025 12:38 PM EDT Shashank Aguilar MD LAB BLOOD BANK TEST ORDER FANTA Final Result [facility] [address] [place] [address], [place] [phone] * HIV-1/2 Antigen/Antibodies 4th Generation w/Reflex (01/30/2025 12:26 PM EDT) HIV Final Interp HIV NEGATIVE 01/30/2025 7:46 PM EDT [facility] Comment: HIV-1 antigen and HIV-1/HIV-2 antibodies were not detected. There is no laboratory evidence of HIV infection. Blood Structure of peripheral vein / Unknown Venipuncture / Unknown 01/30/2025 12:26 PM EDT 01/30/2025 12:38 PM EDT Андрей MARCOS - 01/30/2025 7:46 PM EDT [facility] Received Date:[id number] Shashank Aguilar MD LAB BLOOD ORDERABLES Fauzia l Result TERESA ELMORE [address], [place] [address], [place] [phone] [facility] [address], [place] [address], [place] [phone] * Hepatitis B Surface Antibody (01/30/2025 12:26 PM EDT) Hepatitis B Surface Ab Immunity, Qn 160 > OR = 10 mIU/mL 01/30/2025 7:31 PM EDT [facility] Comment: PATIENT HAS IMMUNITY TO HEPATITIS B VIRUS. For additional information, please refer to http://education.[employer]/faq/OUT066 (This link is being provided for informational/ educational purposes only). Blood Structure of peripheral vein / Unknown Venipuncture / Unknown 01/30/2025 12:26 PM EDT 01/30/2025 12:37 PM EDT Narrative TERESA MARCOS - 01/30/2025 7:31 PM EDT [facility] Received Date:[id number] Shashank Aguilar MD LAB BLOOD ORDERABLES Fauzia l Result TERESA ELMORE [address] [facility] [address], [place] [address], [place] [phone] [facility] [address], [place] [address], [place] [phone] * Hepatitis B Surface Antigen w/Confirmation (01/30/2025 12:26 PM EDT) Pathologist [facility] Hepatitis B Surface Antigen NON-REACT NICKIE NON-REACT NICKIE 01/30/2025 11:43 PM EDT [employer] Comment: For additional information, please refer to http://education.[employer]/faq/YPK515 (This link is being provided for informational/ educational purposes only.) Blood Structure of peripheral vein / Unknown Venipuncture / Unknown 01/30/2025 12:26 PM EDT 01/30/2025 12:37 PM EDT Андрей [employer] ELMORE - 01/30/2025 11:43 PM EDT [facility] Received Date: us Shashank Aguilar MD LAB BLOOD ORDERABLES Fauzia l Result [facility] 200 [facility] 3rd Floor, [place] [address], [facility] [address], [place] [address], * Cytomegalovirus Antibody, IgG (01/30/2025 12:26 PM EDT) [facility] Cytomegalovirus Antibody (IgG) <0.60 U/mL 01/31/2025 1:20 AM EDT [facility] Comment: U/mL Interpretation ----- <0.60 Negative 0.60-0.69 Equivocal > or = 0.70 Positive A positive result indicates that the patient has antibody to CMV. It does not differentiate between an active or past infection. Blood Structure of peripheral vein / Unknown Venipuncture / Unknown 01/30/2025 12:26 PM EDT 01/30/2025 12:37 PM EDT Андрей [facility] - 01/31/2025 1:20 AM EDT [facility] Received Date: us Shashank Aguilar MD LAB BLOOD ORDERABLES Fauzia l Result [facility] [address] [facility] 3rd Floor, [place] [address], [place] [phone] [facility] 200 [facility] 3rd Floor, [place] [address], [place] [phone] * PTT (01/30/2025 12:26 PM EDT) aPTT 25.5 23.0 - 32.0 Seconds 01/30/2025 1:02 PM EDT [facility] Comment: Current PTT reagent is not sensitive to detect all Lupus Anticoagulant (LA) Inhibitor Cases. If a LA is suspected, please order a Lupus Anticoagulation w/ Reflex Test which is performed at [facility] in [place], [place]. Blood Structure of peripheral vein / Unknown Venipuncture / Unknown 01/30/2025 12:26 PM EDT 01/30/2025 12:38 PM EDT Shashank Aguilar MD LAB BLOOD ORDERABLES Fauzia l Result [facility] LAB[facility]AT[facility] [address] [place] [address], [place] * Protime-INR (01/30/2025 12:26 PM EDT) PT 9.9 9.6 - 12.4 Seconds 01/30/2025 1:02 PM EDT [facility] INR 0.9 0.9 - 1.1 01/30/2025 1:02 PM EDT [facility] Comment:The optimal therapeu tic INR range for patients treated with Vitamin K antagonists (VKAS, e.g., Warfarin) is 2.0 to 3.5. Discuss the desired range with your doctor/care team. Blood Structure of peripheral vein / Unknown Venipuncture / Unknown 01/30/2025 12:26 PM EDT 01/30/2025 12:38 PM EDT Shashank Aguilar MD LAB BLOOD ORDERABLES Fauzia l Result Performing Organization Address City/[facility]/ZIP Co de Phone Number FRANCIASHARONMERAVI - [facility] CLINICAL PATHOLOGY LABORATORY [address] [place] [address], [place] * Varicella Zoster Antibody, IgG (01/30/2025 12:26 PM EDT) Varicella Zoster Virus Antibody 6.37 S/CO 01/31/2025 1:21 AM EDT [facility] Comment: Signal to Cut-off S/CO Interpretation [...] PM EDT 01/30/2025 12:38 PM EDT Narrative [facility] - 01/31/2025 1:21 AM EDT [facility] Received Date:[id number] Shashank Aguilar MD LAB BLOOD ORDERABLES Fauzia l Result Performing Organization Address City/[facility]/ZIP Co de Phone Number TERESA [facility] [address] [facility] 3rd Floor, [place] [address], [place] [phone] [facility] 200 [facility] 3rd [facility], [place] [address], [place] [phone] * (ABNORMAL) BUN (01/30/2025 12:26 PM EDT) BUN 44(H) 7 - 23 mg/dL 01/30/2025 1:08 PM EDT [facility] Blood Structure of peripheral vein / Unknown Venipuncture / Unknown 01/30/2025 12:26 PM EDT 01/30/2025 12:38 PM EDT Shashank Aguilar MD LAB BLOOD ORDERABLES Fauzia l Result [facility] [address] [place] [address], [place] * ALT (01/30/2025 12:26 PM EDT) ALT 12 10 - 40 U/L 01/30/2025 1:08 PM EDT [facility] Blood Structure of peripheral vein / Unknown Venipuncture / Unknown 01/30/2025 12:26 PM EDT 01/30/2025 12:38 PM EDT Shashank Aguilar MD LAB BLOOD ORDERABLES Fauzia l Result Performing Organization Address City/[facility]/ZIP Co de Phone Number [facility] [address] [place] [address], [place] * AST (01/30/2025 12:26 PM EDT) AST 11 10 - 40 U/L 01/30/2025 1:08 PM EDT [facility] Blood Structure of peripheral vein / Unknown Venipuncture / Unknown 01/30/2025 12:26 PM EDT 01/30/2025 12:38 PM EDT Shashank Aguilar MD LAB BLOOD ORDERABLES Fauzia l Result [facility] [address] [place] [address], [place] * PSA (01/30/2025 12:26 PM EDT) Pathologist [facility] PSA 1.59 <=4.00 ng/mL 01/30/2025 1:13 PM EDT [facility] CLINICAL PATHOLOGY LABORATORY Comment: The total PSA value from this assay system is standardized against the WHO standard. The test result will be slightly lower (< 3 %) when compared to the equimolar-standardized total PSA(Jana [place]). Comparison of Serial PSA results should be [...] MD LAB BLOOD ORDERABLES Fauzia l Result [facility] CL[facility] PATHOLOG[facility] LABORATORY [address] [place] [address], [place] * (ABNORMAL) Phosphorus (01/30/2025 12:26 PM EDT) [facility] Phosphorus 6.0(H) 2.5 - 4.5 mg/dL 01/30/2025 1:08 PM EDT [facility] LAB[facility] Blood Structure of peripheral vein / Unknown Venipuncture / Unknown 01/30/2025 12:26 PM EDT 01/30/2025 12:38 PM EDT Shashank Aguilar MD LAB BLOOD ORDERABLES Fauzia l Result [facility] CL[facility] PATHOLOG[facility] LABORATORY [address] [place] [address], [place] * (ABNORMAL) PTH, Intact (without Calcium) (01/30/2025 12:26 PM EDT) [facility] Parathyroid Hormone, Intact 694(H) 16 - 77 pg/mL 01/30/2025 11:43 PM EDT [facility] Comment: Interpretive Guide Intact PTH Calcium ------- Normal Parathyroid Normal Normal Hypoparathyroidism Low or Low Normal Low Hyperparathyroidism Primary Normal or High High Secondary High Normal or Low Tertiary High High Non-Parathyroid Hypercalcemia Low or Low Normal High Blood Structure of peripheral vein / Unknown Venipuncture / Unknown 01/30/2025 12:26 PM EDT 01/30/2025 12:37 PM EDT [facility] TERESA MARCOS 01/30/2025 11:43 PM EDT [facility] Received Date: Shashank Aguilar MD LAB BLOOD ORDERABLES Fauzia l Result [facility] [address] [facility] 3rd Floor, [place] [address], [facility] 200 [facility] 3rd Floor, [place] [address], * (ABNORMAL) Hemoglobin A1c (01/30/2025 12:26 PM EDT) Pathologist [facility] Hemoglobin A1C 6.9(H) <5.7 % 01/30/2025 7:32 PM EDT [facility] Comment: For someone without known diabetes, a [...] (MG/DL) 151 mg/dL 01/30/2025 7:32 PM EDT [facility] eAG (MMOL/L) 8.4 mmol/L 01/30/2025 7:32 PM EDT [facility] Blood Structure of peripheral vein / Unknown Venipuncture / Unknown 01/30/2025 12:26 PM EDT 01/30/2025 12:37 PM EDT Narrative TERESA MARCOS - 01/30/2025 7:32 PM EDT [facility] Received Date:[id number] us Shashank Aguilar MD LAB BLOOD ORDERABLES Fauzia l Result TERESA [address]rd Floor, [place] [address], [facility] [address], [place] [address], * (ABNORMAL) Creatinine (01/30/2025 12:26 PM EDT) Creatinine 6.17(H) 0.60 - 1.30 mg/dL 01/30/2025 1:08 PM EDT [facility] eGFR 10(L) >=60 mL/min/1 .73m2 01/30/2025 1:08 PM EDT [facility] Comment:The estimated glomer ular filtration rate (eGFR) is calculated using a new formula developed by the NKF-ASN task force to eliminate race-based correction factors. The new formula uses serum/plasma creatinine, age, and gender to determine eGFR. A value below 60mls/min might indicate kidney disease and will be flagged. For additional information, see Meena et al, Am J Kidney Dis. 2021;79(2):268- 288, A Unifying Approach for GFR estimation: Recommendations of the NKF-ASN Task Force on Reassessing the Inclusion of Race in Diagnosing Kidney Disease . Blood Structure of peripheral vein / Unknown Venipuncture / Unknown 01/30/2025 12:26 PM EDT 01/30/2025 12:38 PM EDT us Shashank Aguilar MD LAB BLOOD ORDERABLES Fauzia l Result Performing Organization Address [facility]/ZIP Co de Phone Number [facility] [address] [place] [address], [place] * Calcium (01/30/2025 12:26 PM EDT) Calcium 9.2 8.6 - 10.5 mg/dL 01/30/2025 1:08 PM EDT [facility] Blood Structure of peripheral vein / Unknown Venipuncture / Unknown 01/30/2025 12:26 PM EDT 01/30/2025 12:38 PM EDT Shashank Aguilar MD LAB BLOOD ORDERABLES Fauzia l Result Performing Organization Address [facility] Co de Phone Number [facility] [address] [place] [address], [place] * Bilirubin, Direct (01/30/2025 12:26 PM EDT) Bilirubin, Direct 0.1 <=0.4 mg/dL 01/30/2025 1:08 PM EDT [facility] Blood Structure of peripheral vein / Unknown Venipuncture / Unknown 01/30/2025 12:26 PM EDT 01/30/2025 12:38 PM EDT Shashank Aguilar MD LAB BLOOD ORDERABLES Fauzia l Result Performing Organization Address [facility]/ZIP Co de Phone Number [facility] [address] [place] [address], [place] * Bilirubin, Total (01/30/2025 12:26 PM EDT) Bilirubin, Total 0.4 0.2 - 1.2 mg/dL 01/30/2025 1:08 PM EDT [facility] Blood Structure of peripheral vein / Unknown Venipuncture / Unknown 01/30/2025 12:26 PM EDT 01/30/2025 12:38 PM EDT us Shashank Aguilar MD LAB BLOOD ORDERABLES Fauzia l Result [facility] [address] [place] [address], * Albumin (01/30/2025 12:26 PM EDT) Albumin 3.7 3.5 - 5.2 g/dL 01/30/2025 1:08 PM EDT [facility] Blood Structure of peripheral vein / Unknown Venipuncture / Unknown 01/30/2025 12:26 PM EDT 01/30/2025 12:38 PM EDT Shashank Aguilar MD LAB BLOOD ORDERABLES Fauzia l Result [facility] [address] [place] [address], from Last 3 Months Insurance [place] Advance Directives Documents on File Type Date Recorded Patient Credit And Collection Manager [facility] Health Care Proxy 02/10/2025 5:21 PM 01/30 Care Teams Die Repair Relationship Specialty Start Date End Date Katrin Santoyo [address] [place] [address] [phone] PCP - General 01/03/25
--- OUTSIDE RECORDS SUMMARY | 2025-03-18 12:46 | XMS_ITS | Encounter Summary ---
Author Organization [facility] Address [address] [place] [address] Care Team Providers Care Barge Captain Name Role Phone Deep Pruitt APRN Primary Care Provider Reason for Visit * Reason Comments Advice Only Other Encounter Details Date Type Department Care Team ([facility] Contact Info) Description 12/02/2021 Telephone [facility] [address] [place] [address] Deep Pruitt APRN [address] [place] [address] Advice Only; Other Social History [...] Mira Rios - 12/02/2021 1:32 PM EDT [facility] - [address] calling in regards to med refill request for Carvedilol 25 mg and Gabapentin medications. Call back [phone] * Telephone Encounter - Leah Madera LPN - 12/02/2021 1:21 PM EDT Patient at * Telephone Encounter - Usha Kline - 12/02/2021 12:18 PM EDT Pt is having a lot of stomach pain on the left side and would like to speak with PCP or nurse. Requesting a call back. [facility] [[email or web address] callback number [phone] Colombian speaking documented in this encounter Plan of [...] documented as of this encounter Care Teams Barge Captain Relationship Specialty Start Date End Date Deep Pruitt APRN PCP - General 05/22/19 documented as of this encounter
--- OUTSIDE RECORDS SUMMARY | 2025-03-18 12:47 | XMS_ITS | Encounter Summary ---
Author Organization [facility] Address [address] [place] [address] Care Team Providers Care Marketing Development Representative Name Role Phone Deep Pruitt APRN Primary Care Provider [phone] Encounter Details Date Type Department Care Team ([facility] st Contact Info) Description 10/27/2021 Scanned Document [facility] [address] [place], [place] [id number] Deep Pruitt APRN [address] [place] [address] Social History Tobacco Use Types [...] as of this encounter Care Teams Marketing Development Representative Relationship Specialty Start Date End Date Deep Pruitt APRN PCP - General 05/22/19 documented as of this encounter
--- OUTSIDE RECORDS SUMMARY | 2025-03-18 12:47 | XMS_ITS | Encounter Summary ---
Author Organization [facility] Doctor kinetic [employer] and [facility] Address [address] [place] [address] Care Team Providers Care Desk Maker Name Role Phone Deep Pruitt APRN Primary Care Provider Reason for Visit * Reason Onset Date Comments Medication Refill 11/19/2021 Encounter Details Date Type Department Care Team (Late st Contact Info) Description 11/19/2021 Refill [facility] [address] [facility] [address] [facility] 2nd [place] [address] Yue Dominguez APRN [address] [place] [phone] Medication Refill Social History Tobacco Use Types [...] Date Recorded PHQ-2 Total Score 0 11/17/2021 [facility] [...] documented as of this encounter Care Teams Desk Maker Relationship Specialty Start Date End Date Deep Pruitt APRN PCP - General 05/22/19 documented as of this encounter
--- OUTSIDE RECORDS SUMMARY | 2025-03-18 12:47 | XMS_ITS | Encounter Summary ---
Author Organization [facility] Address [address] [place] [address] Care Team Providers Care Wire Coiner Name Role Phone T[place] RiverDeep medina Niko LOPEZ Primary Care Provider Reason for Visit * Reason Onset Date Comments Medication Refill 11/19/2021 Encounter Details Date Type Department Care Team (Late st Contact Info) Description 11/19/2021 Refill [facility] [address] [place] [address] Audelia Childs, DDS [address] [place] [address] Medication Refill Social History Tobacco [...] Recorded PHQ-2 Total Score 0 11/17/2021 [facility] of Occupat ional [...] as of this encounter Care Teams Wire Coiner Relationship Specialty Start Date End Date Deep Pruitt APRN PCP - General 05/22/19 documented as of this encounter
--- OUTSIDE RECORDS SUMMARY | 2025-03-18 12:47 | XMS_ITS | Encounter Summary ---
Author Organization [facility] [employer] and [facility] Address [address] [place] [address] Care Team Providers Care Professor Of Finance Name Role Phone Deep Pruitt APRN Primary Care Provider Reason for Visit * Reason Onset Date Comments Medication Refill 11/10/2021 Encounter Details Date Type Department Care Team (Late st Contact Info) Description 11/10/2021 Refill [facility] at [address] [place], [place] [phone] Anahi Rossi, JOHN [address] [place] [address] Medication Refill Social History Tobacco [...] Date Recorded PHQ-2 Total Score 0 10/12/2021 [facility] of Occupat ional Health [...] of this encounter Care Teams Professor Of Finance Relationship Specialty Start Date End Date Deep Pruitt APRN PCP - General 05/22/19 documented as of this encounter
--- OUTSIDE RECORDS SUMMARY | 2025-03-18 12:47 | XMS_ITS | Encounter Summary ---
Author Organization [facility] Address [address] [place] [address] Care Team Providers Care Monologist Name Role Phone Deep Pruitt APRN Primary Care Provider Reason for Visit * Reason Comments Medication Refill Encounter Details Date Type Department Care Team ([facility] st Contact Info) Description 11/17/2021 Refill [facility] [address] [place], [place] [phone] Deep Pruitt APRN [address] [place] [address] Medication Refill Social History Tobacco [...] Date Recorded PHQ-2 Total Score 0 11/17/2021 [facility] of Occupat [...] documented as of this encounter Care Teams Monologist Relationship Specialty Start Date End Date Deep Pruitt APRN PCP - General 05/22/19 documented as of this encounter
--- OUTSIDE RECORDS SUMMARY | 2025-03-18 12:47 | XMS_ITS | Encounter Summary ---
Author Organization [facility] [employer] [facility] and [facility] Address [address] [place] [address] Care Team Providers Care Supervisor Benzene Refining Name Role Phone Deep Pruitt APRN Primary Care Provider Reason for Visit * Reason Onset Date Comments Medication Refill 11/10/2021 Encounter Details Date Type Department Care Team (Late st Contact Info) Description 11/10/2021 Refill [facility] [address] [facility] [address] [facility] 2nd [place] [address] Taylor Malagon, [facility] [address] [place] [phone] Medication Refill Social History Tobacco Use Types [...] Total Score 0 10/12/2021 [facility] of Occupat [...] today, but unknown at home. Defer to [facility] pharmacy team for antihypertensive management. Current [...] as of this encounter Care Teams Supervisor Benzene Refining Relationship Specialty Start Date End Date Deep Pruitt APRN PCP - General 05/22/19 documented as of this encounter
--- OUTSIDE RECORDS SUMMARY | 2025-03-18 12:48 | XMS_ITS | Encounter Summary ---
Author Organization [facility] Address [address] [place] [address] Care Team Providers Care Digital Content Manager Name Role Phone Deep Pruitt JOHN Primary Care Provider Encounter Details Date Type Department Care Team (Late st Contact Info) Description 02/20/2017 Scanned Document [facility] [address] [place] [address] Francisco Veloz PA [address] [place] [address] Social History Tobacco Use Types Packs/Day [...] documented as of this encounter Care Teams Digital Content Manager Relationship Specialty Start Date End Date Deep Pruitt APRN PCP - General 05/22/19 documented as of this encounter
--- OUTSIDE RECORDS SUMMARY | 2025-03-18 12:48 | XMS_ITS | Encounter Summary ---
Author Organization [facility] Address [address] [place] [address] Care Team Providers Care Pre K Teacher Name Role Phone Deep Pruitt JOHN Primary Care Provider Encounter Details Date Type Department Care Team (Late st Contact Info) Description 04/05/2017 Scanned Document [facility] [address] [place], [place] [phone] Francisco Veloz PA [address] [place] [phone] Social History Tobacco Use Types Packs/Day [...] as of this encounter Care Teams Pre K Teacher Relationship Specialty Start Date End Date Deep Pruitt APRN PCP - General 05/22/19 documented as of this encounter
--- OUTSIDE RECORDS SUMMARY | 2025-03-18 12:48 | XMS_ITS | Encounter Summary ---
Author Organization [facility] and [facility] Address [address] [place] [address] Care Team Providers Care Fretted String Instrument Repairer Name Role Phone Deep Pruitt APRN Primary Care Provider Reason for Visit * Reason Onset Date Comments Medication Refill 11/10/2021 Encounter Details Date Type Department Care Team (Late st Contact Info) Description 11/10/2021 Refill [facility] [address] [facility] [address] [facility] 2nd [place] [address] Taylor Malagon, [facility] [address] [place] [phone] Medication Refill Social History Tobacco Use Types [...] 10/12/2021 [facility] of Occupat ional Health [...] documented as of this encounter Care Teams Fretted String Instrument Repairer Relationship Specialty Start Date End Date Deep Pruitt APRN PCP - General 05/22/19 documented as of this encounter
--- OUTSIDE RECORDS SUMMARY | 2025-03-18 12:48 | XMS_ITS | Encounter Summary ---
Author Organization [facility] Address [address] [place] [address] Care Team Providers Care Hazard Waste Handler Name Role Phone Deep Pruitt APRN Primary Care Provider Reason for Visit * Reason Comments Other Advice Only Encounter Details Date Type Department Care Team ([facility] Contact Info) Description 10/20/2021 Telephone [facility] [address] [place] [address] Deep Pruitt APRN [address] [place] [address] Other; Advice Only Social History [...] 10/12/2021 [facility] of Occupat ional Health [...] legs have not stops hurting. Contact number [phone] documented in this encounter Plan of Treatment Not on file documented as of this encounter Visit Diagnoses Not on filedocumented in this encounter Additional Health Concerns Assessment Noted Time PHQ-9 Depression Total Score: 0 10/13/19 22 2:23 PM EDT documented as of this encounter Care Teams Hazard Waste Handler Relationship Specialty Start Date End Date Deep Pruitt APRN PCP - General 05/22/19 documented as of this encounter
--- OUTSIDE RECORDS SUMMARY | 2025-03-18 12:48 | XMS_ITS | Encounter Summary ---
Author Organization [facility] Address [address] [place] [address] Care Team Providers Care Executive Personal Assistant Name Role Phone Deep Pruitt JOHN Primary Care Provider Encounter Details Date Type Department Care Team (Late st Contact Info) Description 01/17/2019 Scanned Document [facility] [address] [place], [place] [phone] External, Provider Social History Tobacco Use Types [...] as of this encounter Care Teams Executive Personal Assistant Relationship Specialty Start Date End Date Deep Pruitt APRN PCP - General 05/22/19 documented as of this encounter
--- OUTSIDE RECORDS SUMMARY | 2025-03-18 12:49 | XMS_ITS | Encounter Summary ---
Author Organization [employer] [facility] Address [address] [facility] [address] [place] [address] Care Team Providers Care Early Childhood Education Instructor Name Role Phone Elise Stanford Primary Care Provider Victoria Katrin Bustos MD Primary Care Pro vider Edison Vieira MD Unavailable [phone] Joe Devi MD Unavailable [phone] Chuy Mcmanus MD Unavailable Sveta Lazaro RN Unavailable [phone] Leslie Kline Unavailable Encounter Details Date Type Department Care Team (Latest Contact Info) Description 09/04/2018 Abstract [facility] Dental, Provider, DDS Social History [...] on filedocumented in this encounter Care Teams Early Childhood Education Instructor Relationship Specialty Start Date End Date Elise Stanford FNP PCP - General Family Medicine 11/24/22 12/12/22 Katrin Santoyo MD [address] [place] [address] PCP - General Internal Medicine 12/13/22 [place] Vieira MD [address] [place] [address] Pulmonary Disease 04/07/24 Joe Devi MD [address] 3rd [place] [address] Gastroenterology 04/07/24 Chuy Mcmanus MD [address] [place] [address] [place] [address] Bariatrics 09/25/24 Sveta Lazaro, CASIE [address] [place] [address] Registered Nurse Family Medicine 11/29/24 Leslie Kline 11/29/24 Carito Roche DNP [address] [facility], [address] [place] [address] Nephrology 04/07/24 [employer] 04/11/24 12/18/24 [facility] 12/14/24 documented as of this encounter
--- OUTSIDE RECORDS SUMMARY | 2025-03-18 12:49 | XMS_ITS | Encounter Summary ---
Author Organization [employer] Address [address] [facility] 7t [place] [address] Care Team Providers Care Ground Control Approach Technician Name Role Phone Elise Stanford PRESENTATION TEAM MEMBER Primary Care Provider Victoria Katrin Bustos MD Primary Care Pro vider Edison Vieira MD Unavailable [phone] Joe Devi MD Unavailable [phone] Chuy Mcmanus MD Unavailable Sveta Lazaro RN Unavailable [phone] Leslie Kline Unavailable Reason for Visit * Reason Onset Date Comments Referral 11/24/2022 Podiatry Encounter Details Date Type Department Care Team (Late st Contact Info) Description 11/24/2022 Telephone [facility] MEDICINE [address] [place] [address] Elise Stanford FNP Referral (Podiatry/) Social History [...] Anne Ocasio - 11/29/2022 9:46 AM EDT Sports Management Intern re-faxed referral to Dr. Smith's office. Sports Management Intern called Dr. Smith's office and confirmed that referral was received. Sports Management Intern attempted to call patient twice to infirm that he may call to schedule his appt but did not answer and voicemail could not be left due to pt not having voicemail setup. Dr. Smith [address] [place] [address] FAX [phone] * Telephone Encounter - Elizabeth Melo - 11/24/2022 9:51 AM EDT Tc from patient requesting status on podiatry referral. Sports Management Intern provided address and phone number and patient [...] documented as of this encounter Care Teams Ground Control Approach Technician Relationship Specialty Start Date End Date Elise Stanford FNP PCP - General Family Medicine 11/24/22 12/12/22 Katrin Santoyo MD [address] [place] [address] [phone] PCP - General Internal Medicine 12/13/22 Edison Vieira MD [address] [place] [address] [phone] Pulmonary Disease 04/07/24 Joe Devi MD [address] [facility] 3rd [place] [address] Gastroenterology 04/07/24 Chuy Mcmanus MD [address] [place] [address] [place] [address] Bariatrics 09/25/24 Sveta Lazaro RN [address] [place] [address] Registered Nurse Family Medicine 11/29/24 Leslie Kline 11/29/24 Carito Roche DNP 10 [facility], [address] [place] [address] Nephrology 04/07/24 [employer] 04/11/24 12/18/24 [facility] 12/14/24 documented as of this encounter
--- OUTSIDE RECORDS SUMMARY | 2025-03-18 12:49 | XMS_ITS | Encounter Summary ---
Author Organization [facility] Address [address] [place] [address] Care Team Providers Care Director Card Name Role Phone Deep Pruitt JOHN Primary Care Provider Encounter Details Date Type Department Care Team (Late st Contact Info) Description 09/26/2016 Scanned Document [facility] [address] [place], [place] [phone] External, Provider Social History Tobacco Use Types [...] as of this encounter Care Teams Director Card Relationship Specialty Start Date End Date Deep Pruitt APRN PCP - General 05/22/19 documented as of this encounter
--- OUTSIDE RECORDS SUMMARY | 2025-03-18 12:49 | XMS_ITS | Encounter Summary ---
Author Organization [employer] Address [address] [facility] [address] 7t [place] [address] Care Team Providers Care Beck Tender Name Role Phone Katrin Santoyo MD Primary Care Pro vider Edison Vieira MD Unavailable [phone] Joe Devi MD Unavailable [phone] Chuy Mcmanus MD Unavailable Sveta Lazaro RN Unavailable [phone] Leslie Kline Unavailable Reason for Visit * Reason Comments Med Refill Encounter Details Date Type Department Care Team (Late st Contact Info) Description 07/10/2024 Refill [facility] [address] [place], [place] [phone] June Jarvis, NILESH [address] [place] [address] Gout due to renal impairment, unspecified chronicity, [...] the past 12 months, has t he [employer], gas, oil or water [employer] threatened to shut off services in your [...] documented as of this encounter Care Teams Beck Tender Relationship Specialty Start Date End Date Katrin Santoyo MD [address] [place] [address] PCP - General Internal Medicine 12/13/22 Edison Vieira MD [address] [place] [address] [phone] Pulmonary Disease 04/07/24 Joe Devi MD [address] 3rd [place] [address] Gastroenterology 04/07/24 Chuy Mcmanus MD [address] [place] [address] [place] [address] Bariatrics 09/25/24 Sveta Lazaro, CASIE [address] [place] [address] Registered Nurse Family Medicine 11/29/24 Leslie Kline 11/29/24 Carito Roche DNP [address], [address] [place] [address] Nephrology 04/07/24 [employer] 04/11/24 12/18/24 [facility] 12/14/24 documented as of this encounter
--- OUTSIDE RECORDS SUMMARY | 2025-03-18 12:49 | XMS_ITS | Encounter Summary ---
Author Organization [facility] Address [address] [place] [address] Care Team Providers Care Marine Electronics Technician Name Role Phone Deep Pruitt JOHN Primary Care Provider Encounter Details Date Type Department Care Team (Late st Contact Info) Description 02/13/2018 Scanned Document [facility] [address] [place] [address] Francisco Veloz PA [address] [place] [phone] Social History Tobacco Use Types Packs/Day [...] as of this encounter Care Teams Marine Electronics Technician Relationship Specialty Start Date End Date Deep Pruitt APRN PCP - General 05/22/19 documented as of this encounter
--- OUTSIDE RECORDS SUMMARY | 2025-03-18 12:49 | XMS_ITS | Encounter Summary ---
Author Organization [facility] Address [address] [place] [address] Care Team Providers Care Bullet Lubricant Mixer Name Role Phone Deep Pruitt JOHN Primary Care Provider [phone] Encounter Details Date Type Department Care Team (Late st Contact Info) Description 02/12/2016 Scanned Document [facility] [address] [place] [address] Francisco Veloz PA [address] [place] [phone] Social History Tobacco Use Types Packs/Day [...] documented as of this encounter Care Teams Bullet Lubricant Mixer Relationship Specialty Start Date End Date Deep Pruitt APRN PCP - General 05/22/19 documented as of this encounter
--- OUTSIDE RECORDS SUMMARY | 2025-03-18 12:49 | XMS_ITS | Clinical Summary ---
Author Organization [address] [facility] Address [address] [place] [address] Phone Care Team Providers Care Guest Service Host Name Role Phone Physician, No Pcp Primary [...] mouth 1 (one) time each day. 02/28/20 Active Jardiance 10 mg tablet Take 1 [...] (40 mg total) by mouth daily. 02/01/20 Active Advair HFA 230-21 mcg/actuation inhaler Inhale 2 puffs by mouth 2 (two) times a day. Active fluticasone propionate (FLONASE) 50 mcg/actuation nasal spray Administer 1-2 sprays into each nostril daily. 03/13/20 24 Active furosemide (LASIX) 40 mg tablet Take [...] Team Description 12/30/2024 Telephone [facility] [place] 250 [address] [facility] 250 [place] [address] Jan Amor DPM from Last 3 Months Immunizations Immunization Administration Dates Next Due Moderna SARS-CoV-2 COVID-19, mRNA, LNP-S, preservative free 08/28/2020,07/28/2020 Pfizer SARS-CoV-2 COVID-19, mRNA, LNP-S, preservative free 04/14/2021 Medical History Medical History Date Comments Diabetes mellitus ([facility] V24, [facility] V28) Hypertension REGI (obstructive sleep apnea) Social [...] Urine Albumin-Creatinine Ratio (uACR) 05/19/2024 05/19/2023, 02/15/2022 COVID-19 Vaccine ( - season) 2025 02/01/2024, 04/14/2021, 08/28/2020, Additional history [...] Completed 04/05/2017, 10/05/2016, 08/17/2016 HIV Screening Completed 10/07/2024, 12/06/2022 Hepatitis C [...] * Annual BMP Blood Test (11/07/2023) [facility] Annual BMP Blood Test Abstracted Historical Provider HEALTH MAINTENANCE Final Result * Lipid panel (09/19/2023) Pathologist [facility] Triglycerides 0 mg/dL Comment:No interpretation Cholesterol 0 mg/dL Comment:No interpretation HDL 0 mg/dL Comment:No interpretation LDL Cholesterol 0 mg/dL Comment:No interpretation Blood Venous blood specimen / Unknown Historical Provider LAB BLOOD ORDERABLES Fauzia l Result * Urine Albumin Creatinine Ratio (05/19/2023) [facility] Urine Albumin Creatinine Ratio Abstracted Historical Provider HEALTH MAINTENANCE Final Result * Hemoglobin A1c (05/17/2023) Pathologist [facility] Hemoglobin A1C 0.0 % Comment:No interpretation Blood Venous blood specimen / Unknown [facility] Provider LAB BLOOD ORDERABLES Fauzia l Result * HIV Screening (12/06/2022) Pathologist [facility] HIV Screening Abstracted [facility] Provider HEALTH MAINTENANCE Final Result * Hepatitis C Screening (12/06/2022) [facility] Hepatitis C Screening Abstracted [facility] Provider HEALTH MAINTENANCE Final Result from Last 3 Months or Most Recently Relevant to Health Maintenance [place] Care Teams Guest Service Host Relationship Specialty Start Date End Date Physician, No Pcp PCP - General 04/08/24
--- OUTSIDE RECORDS SUMMARY | 2025-03-18 12:49 | XMS_ITS | Encounter Summary ---
Author Organization [facility] Address [address] [place] [address] Care Team Providers Care Furnace Charger Name Role Phone Deep Pruitt JOHN Primary Care Provider Encounter Details Date Type Department Care Team (Late st Contact Info) Description 11/22/2017 Scanned Document [facility] [address] [place], [place] [phone] Francisco Veloz PA [address] [place] [address] Social History Tobacco Use Types [...] documented as of this encounter Care Teams Furnace Charger Relationship Specialty Start Date End Date Deep Pruitt APRN PCP - General 05/22/19 documented as of this encounter
--- OUTSIDE RECORDS SUMMARY | 2025-03-18 12:49 | XMS_ITS | Encounter Summary ---
Author Organization [employer] Address [address] [facility] 7t [place] [address] Care Team Providers Care Quality Improvement Coordinator Name Role Phone Katrin Santoyo MD Primary Care Pro vider Edison Vieira MD Unavailable [phone] Joe Devi MD Unavailable [phone] Chuy Mcmanus MD Unavailable Sveta Lazaro RN Unavailable [phone] Leslie Kline Unavailable Encounter Details Date Type Department Care Team (Late st Contact Info) Description 02/17/2025 Orders Only [facility] MEDICINE [address] [place], [place] [phone] June Jarvis, ANP [address] [place], [place] [phone] Social History Tobacco Use Types Packs/Day Years [...] as of this encounter Care Teams Quality Improvement Coordinator Relationship Specialty Start Date End Date Katrin Santoyo MD [address] [place] [address] PCP - General Internal Medicine 12/13/22 Edison Vieira MD [address] [place] [address] Pulmonary Disease 04/07/24 Joe Devi MD [address] [place] [address] 3rd [place] [address] Gastroenterology 04/07/24 Chuy Mcmanus MD [address] [place] [address] Bariatrics 09/25/24 Sveta Lazaro RN [address] [place] [address] Registered Nurse Family Medicine 11/29/24 Leslie Kline 11/29/24 Carito Roche DNP [address] [place] [address], [address] [place] [address] Nephrology 04/07/24 [facility] 12/14/24 documented as of this encounter
--- OUTSIDE RECORDS SUMMARY | 2025-03-18 12:49 | XMS_ITS | Encounter Summary ---
Author Organization [facility] Address [address] [place] [address] Care Team Providers Care Private Duty Lpn Name Role Phone Deep Pruitt JOHN Primary Care Provider [phone] Encounter Details Date Type Department Care Team (Late st Contact Info) Description 01/01/2018 Scanned Document [facility] [address] [place], [place] 788[address] Francisco Veloz PA [address] [place] [phone] Social History Tobacco Use Types Packs/Day [...] documented as of this encounter Care Teams Private Duty Lpn Relationship Specialty Start Date End Date Deep Pruitt APRN PCP - General 05/22/19 documented as of this encounter
--- OUTSIDE RECORDS SUMMARY | 2025-03-18 12:49 | XMS_ITS | Encounter Summary ---
Author Organization [facility] Address [address] [place] [address] Care Team Providers Care Tar Distributor Operator Name Role Phone Deep Pruitt JOHN Primary Care Provider Encounter Details Date Type Department Care Team (Late st Contact Info) Description 01/02/2017 Scanned Document [facility] [address] [place], [place] [phone] Francisco Veloz PA [address] [place] [address] Social History Tobacco Use Types [...] as of this encounter Care Teams Tar Distributor Operator Relationship Specialty Start Date End Date Deep Pruitt APRN PCP - General 05/22/19 documented as of this encounter
--- OUTSIDE RECORDS SUMMARY | 2025-03-18 12:49 | XMS_ITS | Encounter Summary ---
Author Organization [employer] Address 75 [facility] 7t [place] [address] Care Team Providers Care Regional Manager Name Role Phone Katrin Santoyo MD Primary Care Pro vider Edison Vieira MD Unavailable [phone] Joe Devi MD Unavailable [phone] Chuy Mcmanus MD Unavailable Sveta Lazaro RN Unavailable [phone] Leslie Kline Unavailable Reason for Visit * Reason Comments Med Refill Encounter Details Date Type Department Care Team (Late st Contact Info) Description 01/02/[address] [facility] MEDICINE [address] [place] [address] Elise Stanford FNP Hemorrhoids, unspecified hemorrhoid type [...] as of this encounter Care Teams Regional Manager Relationship Specialty Start Date End Date Katrin Santoyo MD [address] [place] [address] PCP - General Internal Medicine 12/13/22 Edison Vieira MD [address] [place] [address] Pulmonary Disease 04/07/24 Joe Devi MD [address] [place] [address] 3rd [place] [address] Gastroenterology 04/07/24 Chuy Mcmanus MD [address] [place] [address] [place] [address] Bariatrics 09/25/24 Sveta Lazaro RN [address] [place] [address] Registered Nurse Family Medicine 11/29/24 Leslie Kline 11/29/24 Carito Roche DNP [address] [place] [address], [address] [place] [address] Nephrology 04/07/24 [employer] 04/11/24 12/18/24 [facility] 12/14/24 documented as of this encounter
--- OUTSIDE RECORDS SUMMARY | 2025-03-18 12:50 | XMS_ITS | Encounter Summary ---
Author Organization [facility] Address [address] [place] [address] Care Team Providers Care Guard Entrance Registrar Name Role Phone Deep Pruitt APRN Primary Care Provider Reason for Visit * Reason Comments Medication Refill Encounter Details Date Type Department Care Team ([facility] st Contact Info) Description 12/29/2020 Refill [facility] [address] [place] [address] Deep Pruitt APRN [address] [place] [phone] Medication Refill Social History Tobacco Use [...] Date Recorded PHQ-2 Total Score 0 11/18/2020 [facility] of Occupat ional Health - [...] as of this encounter Care Teams Guard Entrance Registrar Relationship Specialty Start Date End Date Deep Pruitt APRN PCP - General 05/22/19 documented as of this encounter
--- OUTSIDE RECORDS SUMMARY | 2025-03-18 12:50 | XMS_ITS | Encounter Summary ---
Author Organization [facility] [facility] Address [address] [place] [address] Care Team Providers Care Commuter Pilot Name Role Phone Deep Pruitt APRN Primary Care Provider [phone] Reason for Visit * Reason Onset Date Comments Medication Refill 09/30/2021 Encounter Details Date Type Department Care Team (Late st Contact Info) Description 09/30/2021 Refill [facility] [address] [facility] [address] [facility] 2nd [place] [address] Rubin Valderrama, [facility] [address] [place] [phone] Medication Refill Social History Tobacco Use Types [...] unknown at home. Defer to [facility] pharmacy team for antihypertensive management. Current [...] documented as of this encounter Care Teams Commuter Pilot Relationship Specialty Start Date End Date Deep Pruitt APRN PCP - General 05/22/19 documented as of this encounter
--- OUTSIDE RECORDS SUMMARY | 2025-03-18 12:50 | XMS_ITS | Encounter Summary ---
Author Organization [facility] Address [address] [place] [address] Care Team Providers Care Merchandise Distributor Name Role Phone Deep Pruitt JOHN Primary Care Provider Reason for Visit * Reason Onset Date Comments Medication Refill 10/12/2021 Encounter Details Date Type Department Care Team (Late st Contact Info) Description 10/12/2021 Refill [facility] Nutrition at [address] [phone] Angie Mcghee MD [address] [place] [phone] Medication Refill Social History Tobacco Use Types [...] Date Recorded PHQ-2 Total Score 0 10/12/2021 [facility] of Occupat [...] as of this encounter Care Teams Merchandise Distributor Relationship Specialty Start Date End Date Deep Pruitt APRN PCP - General 05/22/19 documented as of this encounter
--- OUTSIDE RECORDS SUMMARY | 2025-03-18 12:50 | XMS_ITS | Encounter Summary ---
Author Organization [employer] Address 75 [facility] 7t [place] [address] Care Team Providers Care Core Drilling Supervisor Name Role Phone Katrin Santoyo MD Primary Care Pro vider Edison Vieira MD Unavailable [phone] Joe Devi MD Unavailable [phone] Chuy Mcmanus MD Unavailable Sveta Lazaro RN Unavailable [phone] Leslie Kline Unavailable Encounter Details Date Type Department Care Team (Late st Contact Info) Description 06/21/2023 Abstract [facility] MEDICINE 230 [place], [place] [phone] Katrin Santoyo MD [address] [place], [place] [phone] Social History Tobacco Use Types Packs/Day Years [...] as of this encounter Care Teams Core Drilling Supervisor Relationship Specialty Start Date End Date Katrin Santoyo MD [address] [place] [address] PCP - General Internal Medicine 12/13/22 Edison Vieira MD [address] [place] [address] Pulmonary Disease 04/07/24 Joe Devi MD [address] [place] [address] 3rd [place] [address] Gastroenterology 04/07/24 Chuy Mcmanus MD [address] [place] [address] [place] [address] Bariatrics 09/25/24 Sveta Lazaro RN [address] [place] [address] Registered Nurse Family Medicine 11/29/24 Leslie Kline 11/29/24 Carito Roche DNP [address] [place] [address], [address] [place] [address] Nephrology 04/07/24 [employer] 04/11/24 12/18/24 [facility] 12/14/24 documented as of this encounter
--- OUTSIDE RECORDS SUMMARY | 2025-03-18 12:50 | XMS_ITS | Encounter Summary ---
Author Organization [employer] Address 75 [facility] 7t [place] [address] Care Team Providers Care Cutter In Name Role Phone Katrin Santoyo MD Primary Care Pro vider Edison Vieira MD Unavailable [phone] Joe Devi MD Unavailable [phone] Chuy Mcmanus MD Unavailable Sveta Lazaro RN Unavailable [phone] Leslie Kline Unavailable Reason for Visit * Reason Onset Date Comments Referral 04/05/2023 Encounter Details Date Type Department Care Team (Late st Contact Info) Description 04/05/2023 Telephone [facility] MEDICINE 230 [place], [place] [phone] Katrin Santoyo MD 230 [place], [place] [phone] Referral Social History Tobacco Use Types Packs/Day [...] Gastro made on 04/04/2023 sent to [facility], states that they called facility and facility informs that their missing a summary form. Please contact pt at [phone] Bulgarian Speaker documented in this encounter Plan of [...] documented as of this encounter Care Teams Cutter In Relationship Specialty Start Date End Date Katrin Santoyo MD [address] [place] [address] PCP - General Internal Medicine 12/13/22 Edison Vieira MD [address] [place] [address] Pulmonary Disease 04/07/24 Joe Devi MD [address] [place] [address] 3rd [place] [address] Gastroenterology 04/07/24 Chuy Mcmanus MD [address] [place] [address] Bariatrics 09/25/24 Sveta Lazaro, CASIE [address] [place] [address] Registered Nurse Family Medicine 11/29/24 Leslie Kline 11/29/24 Carito Roche DNP 10 [facility], [address] [place] [address] Nephrology 04/07/24 [employer] 04/11/24 12/18/24 [facility] 12/14/24 documented as of this encounter
--- OUTSIDE RECORDS SUMMARY | 2025-03-18 12:50 | XMS_ITS | Encounter Summary ---
Author Organization [facility] Address [address] [place] [address] Care Team Providers Care Networking Administrator Name Role Phone [place] medina Niko LOPEZ Primary Care Provider Encounter Details Date Type Department Care Team (Late st Contact Info) Description 02/19/2020 Scanned Document [facility] [address] [place], [place] [phone] Arben Fountain, NOL[employer] [address] [place] [address] Social History Tobacco Use Types [...] Answer Date Recorded PHQ-2 Score 2 10/02/2019 [facility] of Occupat ional Health - Occupational Stress [...] report (L) (02/19/2020) Blood us Arben Fountain DPChristina PATHOLOGY/CYTOLOGY ORD ERABLES Final Result documented in [...] documented as of this encounter Care Teams Networking Administrator Relationship Specialty Start Date End Date Deep Pruitt APRN PCP - General 05/22/19 documented as of this encounter
--- OUTSIDE RECORDS SUMMARY | 2025-03-18 12:50 | XMS_ITS | Clinical Summary ---
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 Name Role Phone Katrin Santoyo MD Primary Care Pro vider Edison Vieira MD Unavailable [phone] Joe Devi MD Unavailable [phone] Chuy Mcmanus MD Unavailable Sveta Lazaro RN Unavailable [phone] Leslie Kline Unavailable Allergies Active Allergy [...] bedtime 023 Active Blood Glucose Monitoring Suppl (HotPads [place] Lite) w/Device kitIndications: Type 2 diabetes mellitus with diabetic nephropathy, with long-term current use of insulin (HCC) Use to test blood sugar bid dx dm 1 kit 023 Active capsaicin (Capzasin-HP) 0.1 % creamIndication s:Chronic [...] – cordell Use as instructed 100 each 11 Active albuterol (2.5 MG/3ML) 0.083% nebulizer solutionIndicat ions:Moderate persistent asthma without complication Take 3 mL (2.5 mg) by nebulization every 4 (four) hours if needed for wheezing. 75 mL 3 024 Active FT Lubricant Eye Drops 0.5 % ophthalmic solution INSTILL 1 DROP IN EACH EYE NEEDED DRY EYES 30 each 1 Active Nebulizers [facility] [place] Use nebulizer as instructed 1 each Active Respiratory Therapy Supplies (Nebulizer/Tubi ng/Mouthpiece) kit To be used with Nebulizer 1 kit Active triamcinolone (Kenalog) 0.1 % cream Apply [...] MOUTH AFTER USING. 4 g 3 Active Diclofenac Sodium 1 % gelIndications: Chronic [...] and with evening meal. 15 mL 1 025 Active Lantus SoloStar 100 UNIT/ML penIndications: Diabetes mellitus, labile (HCC) Inject 20 Units under the skin at bedtime. 15 mL 1 Active torsemide (Demadex) 100 MG tablet Take 1 tablet (100 mg) by mouth 2 times daily. 60 tablet 1 Active FREESTYLE LITE test stripIndication s:Diabetes mellitus, labile (HCC) Use to test blood sugar 3 times daily 100 each 025 2025 Active FREESTYLE LITE test stripIndication [...] topically 4 times daily. 100 each Active atorvastatin (Lipitor) 80 MG tablet TAKE 1 TABLET BY MOUTH EVERY DAY 90 tablet 1 Active ezetimibe (Zetia) 10 MG tablet TAKE 1 TABLET BY MOUTH EVERY MORNING 90 tablet 1 Active Aspirin Low Dose 81 MG chewable tablet CHEW 1 TABLET EVERY MORNING 90 tablet 1 Active amLODIPine (Norvasc) 5 MG tablet Take 1 tablet (5 mg) by mouth Once per day. 90 tablet 1 Active FreeStyle lancetsIndicati ons:Type 2 diabetes mellitus with diabetic nephropathy, with long-term current use of insulin (HCC) 1 each by Other route before breakfast, before lunch, before evening meal, and at bedtime. Use bid, dx type 2 diabetes 100 each 024 2024 Discontinued(R eorder (will not trigger notification to Pharmacy)) Alcohol Swabs (B-D SINGLE USE SWABS REGULAR) pads Apply 1 Units topically 4 times daily. 100 each 11 024 2024 Discontinued(R eorder (will not trigger notification to Pharmacy)) FREESTYLE LITE test strip Use to test blood sugar as directed 100 each 11 024 2024 Discontinued(R eorder (will not trigger notification to Pharmacy)) Aspirin Low Dose 81 MG chewable tablet CHEW 1 TABLET BY MOUTH ONCE DAILY EVERY MORNING 90 tablet 1 2024 Discontinued ezetimibe (Zetia) 10 MG tablet TAKE 1 TABLET BY MOUTH EVERY DAY IN THE MORNING 90 tablet 1 025 2024 Discontinued atorvastatin (Lipitor) 80 MG tablet TAKE 1 TABLET BY MOUTH EVERY DAY 90 tablet 1 025 2024 Discontinued amLODIPine (Norvasc) 5 MG tablet TAKE 1 TABLET BY MOUTH EVERY DAY 90 tablet 1 2024 Discontinued(R eorder (will not trigger notification [...] ESRD (end stage renal disease) on dialysis ([facility]) 12/26/2024 Moderate cognitive impairment 12/26/2024 Chronic pancreatitis, unspec ified pancreatitis type ([facility]) 08/22/2024 Skin pruritus 08/22/2024 Lipoma 07/10/2024 Assessment & Plan (07/10/2024 2:47 PM EST): I refer patient to surgery Long-term current use of opiate analgesic 2023 Overview (08/13/2024): Medication: Tramadol 50mg Q8H PRN Indication: chronic radicular lumbar pain 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 Vieira Right foot pain [...] lesions. Secondary dental caries 10/23/2023 Fractured dental pentecostal without loss of mat erial 10/23/2023 Alkaline [...] of multiple topical analgesics after discussion with [facility] Pharmacist - meds sent to pharmacy [...] 2022, f/u appt 01/2023 Dental: Refer pt [facility] on 12/13/22 Moderate persistent asthma 11/07/2022 Overview (11/07/2022): -The Pt saw Pulmonology in [facility]03/21/2022 -stable with the use of Advair and [...] focus on improving diabetic control Discuss clinical systems educator referral at next visit F/u 1 [...] disordered breathing. RECOMMENDATIONS / PLAN : -Current [place] recommendations for treatment of [...] S on 21/02 cm. - Following with [facility] Pulmon[facility] - Dr. Vieira - Encouraged to [...] told him that it is not a joint terminal attack controller med. He will fu w PCP next [...] told him that it is not a joint terminal attack controller med. He will fu w PCP next week. Use heat to affected area Diabetes mellitus with diabetic nephropathy 12/09/2022 12/13/2022 History of colonoscopy 12/09/202201/23 Overview (12/09/2022): information and pathology of colonospcy in [facility] 09-09-2020 note Hyperlipidemia due to [...] male 12/09/2022 023 Steatosis of liver 12/09/2022 3 Overview (12/09/2022): per note - CT at [...] 02/07/2019 01/23/2023 Schizoaffective disorder, de pressive type ([facility]) 01/14/2019 05/17/2023 Hypertension 12/10/2018 12/13/2022 Assessment & Plan (12/09/2022 12:54 PM EDT): Refill for losartan sent at patient's request Encounters Date Type Department Care Team Description 03/11/2025 Refill [facility] [address] [place] [phone] Katrin Santoyo MD 03/11/2025 Refill [facility] [address] [place] [phone] Jairo Matt MD 02/25/2025 1:00 PM EDT [facility] [address] [address] Vivian Hoyt MD RUQ pain (Primary Dx) 02/25/2025 Orders Only GENERIC EXTERNAL DATA DEPARTMENT Provider, Generic External Data 02/25/[address] [address] Vivian Hoyt MD 02/25/2025 Travel 02/25/[address] [address] Katrin Santoyo MD Durable Medical Equipment (Home ventilator) 02/20/[address] [address] Karen Luis, CASIE 02/19/[address] [address] Katrin Santoyo MD Ofice note fax over 02/17/2025 2:45 PM EDT Office Visit [facility] [address] [place] [phone] Nupur Couch FNP Preop examination (Primary Dx); Diabetes mellitus, labile (HCC); Obstructive sleep apnea; Primary hypertension; ESRD (end stage renal disease) on dialysis (CMS/HCC) ([facility]) 02/17/2025 Orders Only [facility] [address] [place] [phone] June Jarvis ANP 02/17/2025 Travel 02/03/[address] [address] Katrin Santoyo MD 01/29/[address] [address] Katrin Santoyo MD Pre-op Exam 01/24/[address] [phone] Katrin Santoyo MD Chronic radicular lumbar pain 01/14/2025 1:20 PM EDT Office Visit [facility] [address] [place] [phone] Katrin Leroy MD Acute bilateral low back pain without sciatica; Pain of left hip; Acute pain of right knee 01/14/2025 Travel 01/14/[address] [address] Katrin Santoyo MD Nurse Triage 01/14/[address] [address] Katrin Santoyo MD FYI 01/14/2025 Patient Outreach [address] [address] Katrin Santoyo MD Care Management (C3CM- initial assessment/ enrollment. Not available.) 01/13/2025 Patient Outreach [address] [address] Katrin Santoyo MD Care Coordination (CM/CHW appt reminder) 01/08/2025 Patient Outreach [address] [address] Katrin Santoyo MD 12/31/[address] [address] Katrin Santoyo MD Call Back Request 12/28/2024 Refill [facility] [address] [place] [address] Isha Thomas DO Moderate persistent asthma without complication 12/26/2024 10:00 AM EDT Telemedicine [address] [address] Katrin Santoyo MD Primary hypertension (Primary Dx); Diabetes mellitus, labile ([facility]); Health care maintenance; ESRD (end stage renal disease) on dialysis ([facility]); Moderate cognitive impairment 12/26/[address] [address] Katrin Santoyo MD 12/26/[address] [address] Katrin Santoyo MD Appointment 12/26/2024 Travel 12/25/2024 Patient Outreach [address] [address] Katrin Santoyo MD Transition Of Care (Tcm) (RE: HDF RESCHEDULING ) 12/25/[address] [address] Katrin Santoyo MD Hospital Follow-up 12/25/[address] [address] Katrin Santoyo MD chart prep 12/25/[address] [address] Katrin Santoyo MD chartprep 12/25/2024 Patient Outreach [address] [address] Katrin Santoyo MD Care Coordination (CM/CHW outreach) 12/24/2024 Telephone [facility] [address] [place] [address] Katrin Santoyo MD 12/23/2024 Orders Only GENERIC EXTERNAL DATA DEPARTMENT Provider, Generic External Data 12/19/2024 Telephone [facility] [address] [place] [address] Katrin Santoyo MD fyi 12/18/2024 Orders Only GENERIC EXTERNAL DATA DEPARTMENT Provider, Generic External Data from Last 3 Months Immunizations Immunization Administration [...] 08/19/2025 02/18/2025, 025 Lipid Panel 10/07/2025 10/07/2024, 09/05, 05/17/2023, Additional history exists Diabetes: Foot Exam [...] Procedure Name Priority Date/Time Associated Diagnosis Comments CT ABDOMEN PELVIS WO CONTRAST Routine 02/25/2025 10:40 PM EDT HIGH SENSITIVITY TROPONIN I Routine 02/25/2025 9:27 PM EDT URINALYSIS, COMPLETE, WITH REFLEX TO [...] PANEL Routine 12/18/2024 12: 34 PM EDT HEPATITIS C AB W/REFL TO HCV [...] Recently Relevant to Health Maintenance Results * CT Abdomen Pelvis w/o Contrast (02/25/2025 10:40 PM EDT) Anatomical Region Laterality Modality Body, Pelvis, Abdomen Computed T omography 02/25/2025 10:4 0 PM EDT Narrative 02/25/2025 10:40 PM EDT [place] [address] CT Scan Report Signed Patient: Darrel Hagan MR#: [id number] : 1970 Acct:[id number] Age/Sex: 54 / M ADM Date: 02/25/25 Loc: HO.ED Attending Dr: Ordering Physician: Yuridia Godfrey Date of Service: 02/25/25 Procedure(s): CT abdomen pelvis wo IV con Accession Number(s): [id number] cc: Yuridia Godfrey; Katrin Santoyo MD Report Number: [id number]: Total DLP = 794.00 mGy-cm Reason for Exam: right flank pain, renal colic? CLINICAL HISTORY: right flank pain, renal colic? CT abdomen and pelvis without contrast Comparison: CT/REG/SR - CT ABDOMEN PELVIS WO IV CON - 06/22/23 16:28 EST Findings: Esophageal mural thickening possibly related to degree of underdistention. Ill-defined patchy ground-glass nodular consolidations in the rvde-faksfic-lmxw-right lungs. Tiny calcified granuloma splenic dome. Gynecomastia. Coronary artery calcifications. Cholelithiasis noted, without significant wall thickening or pericholecystic stranding. Bile ducts are unremarkable. Hepatomegaly. Nonspecific thickening of the adrenal glands, left more than right. Bilateral perinephric stranding, nonspecific. No urolithiasis or hydronephrosis. Circumferential bladder wall thickening. Possible tiny small hemorrhagic 3 mm renal cyst right upper pole kidney. Mild central distal small bowel mural thickening with air-fluid levels, may reflect enteritis/ileus, caliber measures 3.2 cm. Diffuse skin thickening along the anterior abdominal wall subcutaneous edema may reflect panniculitis. Fat containing inguinal hernias. Prominent inguinal nodes, may be reactive. Scattered colonic diverticulosis without diverticulitis or colitis. Normal appendix. The bones are intact. Diffuse atheromatous plaque disease throughout the aorta and branch vessels, without aneurysmal dilatation. IMPRESSION: 1. Ill-defined patchy ground-glass nodular consolidations in the rglu-enqvprs-bqxo-right lungs. Correlation for pneumonia advised. 2. Circumferential bladder wall thickening may be related to degree of underdistention or mild cystitis. 3. Suspect distal mild small bowel ileus/enteritis. 4. Additional findings as described. This document has been electronically signed by: Cristino Ho MD on 02/25/2025 22:40:16 Dictated By: Cristino Ho MD Signed By: <Electronically signed by Cristino Ho MD in [place]> 02/25/252239 DD/ 39 TD/TT: 02/25/252239 Pipeliner: Procedure Note Donotuseinterpreter, Image - 02/25/[address] [place] [address] [address] Scan Report Signed Patient: Darrel Hagan#: [id number] : 1970Acct:[id number] Age/Sex: 54 / MADM Date: 02/25/25 Loc: HO.ED Attending Dr: Ordering Physician: Yuridia Godfrey Date of Service: 02/25/25 Procedure(s): CT abdomen pelvis wo IV con Accession Number(s): [id number] cc: Yuridia Godfrey; Katrin Santoyo MD Report Number: [id number]: Total DLP = 794.00 mGy-cm Reason for Exam: right flank pain, renal colic? CLINICAL HISTORY: right flank pain, renal colic? CT abdomen and pelvis without contrast Comparison: CT/REG/SR - CT ABDOMEN PELVIS WO IV CON - 06/22/23 16:28 EST Findings: Esophageal mural thickening possibly related to degree of underdistention. Ill-defined patchy ground-glass nodular consolidations in the bzfw-tvxptpm-lhwp-right lungs. Tiny calcified granuloma splenic dome. Gynecomastia. Coronary artery calcifications. Cholelithiasis noted, without significant wall thickening or pericholecystic stranding. Bile ducts are unremarkable. Hepatomegaly. Nonspecific thickening of the adrenal glands, left more than right. Bilateral perinephric stranding, nonspecific. No urolithiasis or hydronephrosis. Circumferential bladder wall thickening. Possible tiny small hemorrhagic 3 mm renal cyst right upper pole kidney. Mild central distal small bowel mural thickening with air-fluid levels, may reflect enteritis/ileus, caliber measures 3.2 cm. Diffuse skin thickening along the anterior abdominal wall subcutaneous edema may reflect panniculitis. Fat containing inguinal hernias. Prominent inguinal nodes, may be reactive. Scattered colonic diverticulosis without diverticulitis or colitis. Normal appendix. The bones are intact. Diffuse atheromatous plaque disease throughout the aorta and branch vessels, without aneurysmal dilatation. IMPRESSION: 1. Ill-defined patchy ground-glass nodular consolidations in the awvk-lmwhvgz-mmph-right lungs. Correlation for pneumonia advised. 2. Circumferential bladder wall thickening may be related to degree of underdistention or mild cystitis. 3. Suspect distal mild small bowel ileus/enteritis. 4. Additional findings as described. This document has been electronically signed by: Cristino Ho MD on 02/25/2025 22:40:16 Dictated By: Cristino Ho MD Signed By: <Electronically signed by Cristino Ho MD in OV> 02/25/252239 DD/ 39 TD/TT: 02/25/252239 Pipeliner: [facility] External Provider IMG CT PROCEDURES Final Result * High Sensitivity Troponin I (02/25/2025 9:27 PM EDT) Only the most recent of2 resultswithin the time period is included. TROPONIN I HIGH SENSITIVITY 21.6 <3.5 - 35.0 ng/L [facility] Comment:The [place] high sens itivity Troponin-I results should beused in conjunction with other diagnostic information suchas ECG, clinical observations and information, and patientsymptoms to aid in the diagnosis of [place]. 02/25/2025 9:27 PM EDT 02/25/2025 9:29 PM EDT us Generic External Data Provider LAB BLOOD ORDERAB LES Final Result [facility] [address] [place] [phone] * (ABNORMAL) Urinalysis, Complete, with Reflex to Culture (02/25/2025 8:15 PM EDT) Color Urine Yellow [facility] Appearance Urine Clear [facility] PH 7.0 5.0 - 9.0 [facility] Glucose Urine UA >=1000(A) Negative mg/dL [facility] Urine Blood Trace(A) Negative [facility] Specific [place] - Urine 1.020 1.005 - 1.025 [facility] Urine Protein >=1000 (4+)(A) Neg-Trace mg/dL [facility] Urine Ketones Negative Negative mg/dL [facility] Nitrite Urine Negative Negative [facility] Leukocyte Esterase Urine Negative Negative [facility] RBC Urine 0-2 0 - 2 /HPF [facility] Urine WBC 0-5 0 - 5 /HPF [facility] Urine Squamous Epithelial Cell 0-2 0 - 2 /HPF [facility] Urine Bacteria None Seen None Seen [facility] Hyaline Casts, Urine 0-2 0 - 2 /LPF [facility] 02/25/2025 8:15 PM EDT 02/25/2025 8:17 PM EDT Narrative [facility] - 02/25/2025 8:26 PM EDT [id number], Clean Catch Generic External Data Provider LAB URINE ORDERAB LES Final Result Performing Organization Address City/[facility]/ZIP Co de Phone Number [facility] [address] [place] [address] [phone] * Ethanol (02/25/2025 4:27 PM EDT) [facility] ETHANOL (MG/DL) IN SER/PLAS <10 mg/dL [facility] Comment:Serum/plasma ethanol results are to be used formedical/treatment purposes only. 02/25/2025 4:27 PM EDT 02/25/2025 4:37 PM EDT Generic External Data Provider LAB BLOOD ORDERAB LES Final Result Performing Organization Address [facility] Co de Phone Number [facility] [address] [place] [phone] * (ABNORMAL) CBC auto differential (02/25/2025 4:27 PM EDT) Only the most recent of2 resultswithin the time period is included. [facility] White Blood Count 14.5(H) 4.8 - 10.8 X10*3/uL [facility] Red Blood Count 4.12(L) 4.60 - 5.80 X10*6/uL [facility] Hemoglobin 11.9(L) 14.0 - 18.0 g/dl [facility] Hematocrit 37.2(L) 42.0 - 52.0 % [facility] Mean Corpuscular Volume 90.3 80.0 - 98.0 fL [facility] Mean Corpuscular Hemoglobin 28.9 27.0 - 33.0 pg [facility] Mean Corpuscular HGB Conc 32.0 31.0 - 36.0 g/dl [facility] Red Cell Distribution Width 14.4 11.0 - 16.0 % [facility] Platelet Count 339 160 - 400 X10*3/uL [facility] Mean Platelet Volume 11.7 9.4 - 12.4 fL [facility] Neutrophils Percent Auto 65.0 45 - 73 % [facility] Imm Gran Pct Auto 0.3 0.0 - 0.4 % [facility] Lymphocytes Percent Auto 16.8(L) 20 - 40 % [facility] Monocytes Percent Auto 9.9 2 - 11 % [facility] Eosinophils Percent Auto 7.4(H) 0 - 4 % [facility] Basophils Percent Auto 0.6 0 - 2 % [facility] NRBC Pct Auto 0.0 0.0 - 0.2 /100WBC [facility] Neutrophils Absolute Auto 9.4(H) 2.0 - 8.3 x10*3/uL [facility] Imm Gran Abs Auto 0.05(H) 0.00 - 0.03 X10*3/uL [facility] Lymphocytes Absolute Auto 2.4 1.2 - 4.9 X10*3/uL [facility] Monocytes Absolute Auto 1.4(H) 0.1 - 1.2 X10*3/uL [facility] Eosinophils Absolute Auto 1.1(H) 0.0 - 0.4 X10*3/uL [facility] Basophils Absolute Auto 0.1 0.0 - 0.2 X10*3/uL [facility] NRBC Abs Auto 0.000 0.0 - 0.012 X10*3/uL [facility] 02/25/2025 4:27 PM EDT 02/25/2025 4:37 PM EDT us Generic External Data Provider LAB BLOOD ORDERAB LES Final Result [facility] [address] [place], [place] [phone] * Lipase (02/25/2025 4:27 PM EDT) Lipase 67 8 - 78 U/L [facility] 02/25/2025 4:27 PM EDT 02/25/2025 4:37 PM EDT us Generic External Data Provider LAB BLOOD ORDERAB LES Final Result [facility] [address] [place], [place] [phone] * (ABNORMAL) Comprehensive Metabolic Panel (02/25/2025 4:27 PM EDT) Sodium 139 135 - 145 mmol/L [facility] Potassium 4.6 3.3 - 5.1 mmol/L [facility] Chloride 105 96 - 108 mmol/L [facility] Carbon Dioxide 24 22 - 29 mmol/L [facility] Anion Gap 15 12 - 20 [facility] Urea Nitrogen (BUN) 40(H) 9 - 16 mg/dL [facility] Creatinine, Serum 7.17(HH) 0.5 - 1.4 mg/dL [facility] Comment:Critical value for t est(s): CREAT Results called to agatha back by: ADRIEN Person calling: LAKE[employer] Date:02/25/25 Time: 1706 Creatinine Clr Calc Pharmacy 13.5 [facility] Comment:eGFR (calculated fro m the MDRD study equation) and eCrCl(calculated from the Cockcroft-Gault equation) are based ondifferent parameters and may not yield comparable results.If eCrCl result is absurd, please check patient'sheight/weight. Estimated Glomerular Filt Rate 8 [facility] Comment:Chronic Kidney Disea se: Estimated GFR < 60 mL/min/1.85o8Cpyfzx Kidney Disease: Estimated GFR < 15 mL/min/1.73m2 Glucose 180(H) 60 - 115 mg/dL [facility] Calcium 9.6 8.4 - 10.2 mg/dL [facility] Bilirubin, Total 0.3 0.0 - 1.0 mg/dL [facility] Aspartate Amino Transferase 18 5 - 37 U/L [facility] Alanine Aminotransferase 12 0 - 40 U/L [facility] Total Protein 7.3 6.5 - 8.0 g/dL [facility] Albumin Level 3.9 3.5 - 5.0 g/dL [facility] Alkaline Phosphatase 143(H) 39 - 117 U/L [facility] 02/25/2025 4:27 PM EDT 02/25/2025 4:37 PM EDT Generic External Data Provider LAB BLOOD ORDERAB LES Final Result [facility] [address] [place] [phone] * (ABNORMAL) POCT Glucose (02/17/2025 4:42 PM EDT) Only the most recent of2 resultswithin the time period is included. Glucose Blood, POC 500(A) 60 - 200 mg/dL Comment:[facility] QC Media Lot # [id number] Lot# Expiration Date 31,126 Blood Capillary blood specimen / Unknown 02/17/2025 4:42 PM EDT us Nupur Solexao HEARING DOG TRAINER POINT OF CARE TEST ENTER/EDIT ORDERABLES Final [...] Urine (Urine, Random) 02/17/2025 4:07 PM EDT Nupur Solexao HEARING DOG TRAINER POINT OF CARE TEST ENTER/EDIT ORDERABLES Final Result * (ABNORMAL) POCT Hgb A1c (02/17/2025 2:58 PM EDT) Hemoglobin A1C 7.1(A) 4.0 - 5.7 % QC Media Lot # [id number] Lot# Expiration Date [id number] Blood 02/17/2025 2:58 PM EDT us Nupur Okhipo HEARING DOG TRAINER POINT OF CARE TEST ENTER/EDIT ORDERABLES Final Result * XR Knee 4+ Views Right (01/14/2025 2:15 PM EDT) Anatomical Region Laterality Modality Lower Extremities, Knee Right Radiogra phic Imaging 01/14/2025 2:15 PM EDT Narrative 01/14/2025 2:44 PM EDT [facility] [address] [place] [address] XRay Report Signed Patient: Darrel Hagan MR#: [id number] : 1970 Acct:[id number] Age/Sex: 54 / M ADM Date: 01/14/25 Loc: HO.HHCX Attending Dr: Katrin Kong MD Ordering Physician: Katrin Leroy MD Date of Service: 01/14/25 Procedure(s): XR knee RT 4V Accession Number(s): [id number] cc: Katrin Leroy MD Reason for Exam: [...] 01/14/25 1442 DD/ 1415 TD/TT: 01/14/25 1430 Pipeliner: Procedure Note Ferter, Image - 01/14/2025 [facility] [address] [place] [address] XRay Report Signed Patient: Darrel HaganMR#: [id number] : 1970Acct:[id number] Age/Sex: 54 / MADM Date: 01/14/25 Loc: HO.HHCX Attending Dr: Katrin Kong MD Ordering Physician: Katrin Leroy MD Date of Service: 01/14/25 Procedure(s): XR knee RT 4V Accession Number(s): [id number] cc: Katrin Leroy MD Reason for Exam: [...] 01/14/25 1442 DD/ 1415 TD/TT: 01/14/25 1430 Pipeliner: Katrin Kong MD IMG XR PROCEDURES Fin al Result * XR Hip 2 or 3 Views Left (01/14/2025 2:10 PM EDT) Anatomical Region Laterality Modality Lower Extremities, Hip Left Radiograp hic Imaging 01/14/2025 2:10 PM EDT Narrative 01/14/2025 2:47 PM EDT [address] XRay Report Signed Patient: Darrel Hagan MR#: [id number] : 1970 Acct:[id number] Age/Sex: 54 / M ADM Date: 01/14/25 Loc: HO.HHCX Attending Dr: Katrin Kong MD Ordering Physician: Katrin Leroy MD Date of Service: 01/14/25 Procedure(s): XR hip LT min 2V Accession Number(s): [id number] cc: Katrin Leroy MD Reason for Exam: [...] Kin Purdy MD 01/14/2025 02:43 PM EDT Dictated By: Kin Purdy MD Signed By: <Electronically signed by Kin Purdy MD in OV> 01/14/25 1443 DD/ 1410 TD/TT: 01/14/25 1430 Pipeliner: Procedure Note Donotuseinterpreter, Image - 01/14/[address] XRay Report Signed Patient: Darrel HaganMR#: [id number] : 1970Acct:[id number] Age/Sex: 54 / MADM Date: 01/14/25 Loc: HO.HHCX Attending Dr: Katrin Kong MD Ordering Physician: Katrin Leroy MD Date of Service: 01/14/25 Procedure(s): XR hip LT min 2V Accession Number(s): [id number] cc: Katrin Leroy MD Reason for Exam: [...] 01/14/25 1443 DD/ 1410 TD/TT: 01/14/25 1430 Pipeliner: Katrin Kong MD IMG XR PROCEDURES Fin al Result * XR Lumbar Spine 2-3 Views (01/14/2025 2:09 PM EDT) Anatomical Region Laterality Modality Spine, L-spine Radiographic Cierra ging 01/14/2025 2:09 PM EDT Narrative 01/14/2025 2:48 PM EDT [address] [address] XRay Report Signed Patient: Darrel Hagan MR#: [id number] : 1970 Acct:[id number] Age/Sex: 54 / M ADM Date: 01/14/25 Loc: HO.HHCX Attending Dr: Katrin Kong MD Ordering Physician: Katrin Leroy MD Date of Service: 01/14/25 Procedure(s): XR lumbar spine 2-3V Accession Number(s): [id number] cc: Katrin Leroy MD Reason for Exam: [...] 01/14/25 1445 DD/ 1409 TD/TT: 01/14/25 1430 Pipeliner: Procedure Note Donotuseinterpreter, Image - 01/14/[address] [address] XRay Report Signed Patient: Darrel Hagan#: [id number] : 1970Acct:[id number] Age/Sex: 54 / MADM Date: 01/14/25 Loc: HO.HHCX Attending Dr: Katrin Kong MD Ordering Physician: Katrin Leroy MD Date of Service: 01/14/25 Procedure(s): XR lumbar spine 2-3V Accession Number(s): [id number] cc: Katrin Leroy MD Reason for Exam: [...] disc disease at T11-12. Electronically signed by: iKn Purdy MD 01/14/2025 02:45 PM EDT RP Dictated By: Kin Purdy MD Signed By: <Electronically signed by Kin Purdy MD in OV> 01/14/25 1445 DD/ 1409 TD/TT: 01/14/25 1430 Pipeliner: us Katrin Kong MD IMG XR PROCEDURES Fin al Result * IR US Guide - Venous Access (12/23/2024 10:30 AM EDT) Anatomical Region Laterality Modality X-Ray Angiograph y 12/23/2024 10:3 0 AM EDT Narrative 12/23/2024 4:44 PM EDT [place] [address] Interventional Radiology Rpt Signed Patient: Darrel Hagan MR#: [id number] : 1970 Acct:[id number] Age/Sex: 54 / M ADM Date: 12/23/24 Loc: HO.[facility] Attending Dr: RENATO Shaver DNP Ordering Physician: Carito Roche DNP, FNP-BC Date of Service: 12/23/24 Procedure(s): IR us guide venous access Accession Number(s): [id number] cc: Carito Roche DNP, FNP-BC; Katrin Santoyo MD PROCEDURE: IR INSERTION OF TUNNEL CATHETER CLINICAL INFORMATION: Creatinine 4.0. Permacath for dialysis COMPARISON: None available. 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 Patient was [...] was advanced and needle removed. A 5 Slovak dilator was placed over the guidewire and [...] was removed. The guidewire to the 5 Slovak neck was reviewed and replaced by 0.035 J-wire advanced into the IVC under fluoroscopy. The 5 Slovak pigtail was removed and the tract was dilated up to 16 Slovak dilator. A 16 Slovak dilator with peel-away sheath was introduced over [...] placement of a 27 cm long 12 Slovak permacatheter with the tip in the proximal SVC/brachiocephalic venous junction. Fluoroscopy time: 1.1 minute. Dose: 20.830 mGy. Electronically signed by: Huey Floyd MD 12/23/2024 04:41 PM EDT RP Dictated By: Huey Floyd MD Signed By: <Electronically signed by Huey Floyd MD in OV> 12/23/24 1641 DD/ 1030 TD/TT: 12/23/24 1247 Pipeliner: [facility] Procedure Note Donotuseinterpreter, Image - 12/23/2024 [place] [address] Interventional Radiology Rpt Signed Patient: Darrel HaganMR#: [id number] : 1970Acct:[id number] Age/Sex: 54 / MADM Date: 12/23/24 Loc: HO.[facility] Attending Dr: RENATO Shaver DNP Ordering Physician: Carito Roche DNP, FNP-BC Date of Service: 12/23/24 Procedure(s): IR us guide venous access Accession Number(s): [id number] cc: Carito Roche DNP, FNP-BC; Katrin Santoyo MD PROCEDURE: IR INSERTION OF TUNNEL CATHETER CLINICAL INFORMATION: Creatinine 4.0. Permacath for dialysis COMPARISON: None available. 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 Patient was [...] was advanced and needle removed. A 5 Slovak dilator was placed over the guidewire and [...] was removed. The guidewire to the 5 Slovak neck was reviewed and replaced by 0.035 J-wire advanced into the IVC under fluoroscopy. The 5 Slovak pigtail was removed and the tract was dilated up to 16 Slovak dilator. A 16 Slovak dilator with peel-away sheath was introduced over [...] placement of a 27 cm long 12 Slovak permacatheter with the tip in the proximal SVC/brachiocephalic venous junction. Fluoroscopy time: 1.1 minute. Dose: 20.830 mGy. Electronically signed by: Huey Floyd MD 12/23/2024 04:41 PM EDT Dictated By: Huey Floyd MD Signed By: <Electronically signed by Huey Floyd MD in OV> 12/23/24 1641 DD/ 1030 TD/TT: 12/23/24 1247 Pipeliner: [facility] External Provider IMG IR PROCEDURES Final Result * IR CVC Insert Central Tunnel (12/23/2024 10:30 AM EDT) Anatomical Region Laterality Modality Body X-Ray Angiograph y 12/23/2024 10:3 0 AM EDT Narrative 12/23/2024 4:44 PM EDT [address] [address] Interventional Radiology Rpt Signed Patient: Darrel Hagan MR#: [id number] : 1970 Acct:[id number] Age/Sex: 54 / M ADM Date: 12/23/24 Loc: HO.SSS Attending Dr: RENATO Shaver DNP Ordering Physician: Carito Roche DNP, FNP-BC Date of Service: 12/23/24 Procedure(s): IR cvc insert central tunnel Accession Number(s): [id number] cc: Carito Roche DNP, FNP-BC; Katrin Santoyo MD PROCEDURE: IR INSERTION OF TUNNEL CATHETER CLINICAL INFORMATION: Creatinine 4.0. Permacath for dialysis COMPARISON: None available. 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 Patient was [...] was advanced and needle removed. A 5 Slovak dilator was placed over the guidewire and [...] was removed. The guidewire to the 5 Slovak neck was reviewed and replaced by 0.035 J-wire advanced into the IVC under fluoroscopy. The 5 Slovak pigtail was removed and the tract was dilated up to 16 Slovak dilator. A 16 Slovak dilator with peel-away sheath was introduced over [...] placement of a 27 cm long 12 Slovak permacatheter with the tip in the proximal SVC/brachiocephalic venous junction. Fluoroscopy time: 1.1 minute. Dose: 20.830 mGy. Electronically signed by: Huey Floyd MD 12/23/2024 04:41 PM EDT Dictated By: Huey Floyd MD Signed By: <Electronically signed by Huey Floyd MD in OV> 12/23/24 1641 DD/ 1030 TD/TT: 12/23/24 1247 Pipeliner: [facility] Procedure Note Donotuseinterpreter, Image - 12/23/[address] [address] Interventional Radiology Rpt Signed Patient: Rayo Hagan#: [id number] : 1970Acct:[id number] Age/Sex: 54 / MADM Date: 12/23/24 Loc: HO.SSS Attending Dr: RENATO Shaver DNP Ordering Physician: Carito Roche DNP, FNP-BC Date of Service: 12/23/24 Procedure(s): IR cvc insert central tunnel Accession Number(s): [id number] cc: Carito Roche DNP, FNP-BC; Katrin Santoyo MD PROCEDURE: IR INSERTION OF TUNNEL CATHETER CLINICAL INFORMATION: Creatinine 4.0. Permacath for dialysis COMPARISON: None available. 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 Patient was [...] was advanced and needle removed. A 5 Slovak dilator was placed over the guidewire and [...] was removed. The guidewire to the 5 Slovak neck was reviewed and replaced by 0.035 J-wire advanced into the IVC under fluoroscopy. The 5 Slovak pigtail was removed and the tract was dilated up to 16 Slovak dilator. A 16 Slovak dilator with peel-away sheath was introduced over [...] placement of a 27 cm long 12 Slovak permacatheter with the tip in the proximal SVC/brachiocephalic venous junction. Fluoroscopy time: 1.1 minute. Dose: 20.830 mGy. Electronically signed by: Huey Floyd MD 12/23/2024 04:41 PM EDT RP Dictated By: Huey Floyd MD Signed By: <Electronically signed by Huey Floyd MD in OV> 12/23/24 1641 DD/ 1030 TD/TT: 12/23/24 1247 Pipeliner: [facility] External Provider IMG IR PROCEDURES Final Result * (ABNORMAL) Glucose, Whole Blood (12/23/2024 9:54 AM EDT) [facility] Glucose, Whole Blood 126(H) 60 - 115 mg/dL [facility] Comment:METER #: [id number] 12/23/2024 9:54 AM EDT 12/23/2024 10:04 AM EDT Generic External Data Provider LAB BLOOD ORDERAB LES Final Result [facility] [address] [place] [phone] * Partial Thromboplastin Time, Activated (APTT) (12/23/2024 9:35 AM EDT) Partial Thromboplastin Time 31.3 26.7 - 34.1 SEC [facility] 12/23/2024 9:35 AM EDT 12/23/2024 9:40 AM EDT Generic External Data Provider LAB BLOOD ORDERAB LES Final Result Performing Organization Address [facility] de Phone Number [facility] [address] [place] [phone] * (ABNORMAL) Prothrombin Time-INR (12/23/2024 9:35 AM EDT) Prothrombin Time 10.6(L) 10.9 - 12.4 SEC [facility] ORDERAB LES Final Result Performing Organization Address [facility] de Phone Number [facility] [address] [place] [phone] * (ABNORMAL) Creatinine, Serum (12/18/2024 12:34 PM EDT) Creatinine, Serum 10.22(HH) 0.5 - 1.4 mg/dL [facility] Comment:Critical value for t est(s): CREAT Results called to agatha back by: CHRISTY Person calling:ALISON Date: 12/18/24Time:1434 Estimated Glomerular Filt Rate 5 [facility] Comment:Chronic Kidney Disea se: Estimated GFR < 60 mL/min/1.54e0Bknhnx Kidney Disease: Estimated GFR < 15 mL/min/1.73m2 12/18/2024 12:3 4 PM EDT 12/18/2024 12:34 PM EDT us Generic External Data Provider LAB BLOOD ORDERAB LES Final Result Performing Organization Address [facility] de Phone Number [facility] [address] [place] [phone] * (ABNORMAL) BUN (Blood Urea Nitrogen) (12/18/2024 12:34 PM EDT) Urea Nitrogen (BUN) 109(H) 9 - 16 mg/dL [facility] 12/18/2024 12:3 4 PM EDT 12/18/2024 12:34 PM EDT us Generic External Data Provider LAB BLOOD ORDERAB LES Final Result Performing Organization Address [facility] de Phone Number [facility] [address] [place] [phone] * (ABNORMAL) Electrolyte Panel (12/18/2024 12:34 PM EDT) Sodium 146(H) 135 - 145 mmol/L [facility] Potassium 4.5 3.3 - 5.1 mmol/L [facility] Chloride 109(H) 96 - 108 mmol/L [facility] Carbon Dioxide 21(L) 22 - 29 mmol/L [facility] Anion Gap 21(H) 12 - 20 [facility] 12/18/2024 12:3 4 PM EDT 12/18/2024 12:34 PM EDT us Generic External Data Provider LAB BLOOD ORDERAB LES Final Result Performing Organization Address [facility] de Phone Number [facility] [address] [place] [phone] * Hepatitis C Antibody with Reflex to HCV, RNA, Quantitative, Real-Time PCR (10/07/2024 12:53 PM EDT) Pathologist [facility] Hepatitis C Antibody Nonreactive Nonreactive [facility] Comment:Antibodies to HCV no t detected; does not exclude early acuteHCV infection. Blood Venous blood specimen / Unknown 10/07/2024 12:53 PM EDT 10/07/2024 4:04 PM EDT us Katrin López MD LAB BLOOD ORDERAB LES Final Result Performing Organization Address [facility]/ZIP Co de Phone Number [facility] [address] [place] [phone] * HIV-1/2 Antigen and Antibodies, Fourth Generation, with Reflexes (10/07/2024 12:53 PM EDT) [facility] HIV AB/AG Nonreactive Nonreactive [facility] Comment:HIV-1 p24 Ag and/or HIV-1/HIV-2 Ab not detected.A test result that is nonreactive does not exclude thepossibility of exposure to or infection with HIV-1 and/orHIV-2. Nonreactive results in this assay for individualswith prior exposure to HIV-1 and/or HIV-2 may be due toantigen and antibody levels that are below the limit ofdetection of this assay.The CleanFishniPAYMILL HIV Ag/Ab Combo assay result andsupplemental assay results should be interpreted inconjunction with the patient's clinical presentation,history and other laboratory results. If the results areinconsistent with clinical evidence, additional testing issuggested to confirm the result. Blood Venous blood specimen / Unknown 10/07/2024 12:53 PM EDT 10/07/2024 4:04 PM EDT us Katrin López MD LAB BLOOD ORDERAB LES Final Result Performing Organization Address City/[facility]/ZIP Co de Phone Number [facility] [address] [place] [phone] * (ABNORMAL) Lipid Panel, Standard (10/07/2024 12:53 PM EDT) Triglycerides 209(H) <150 mg/dL [facility] Comment:Desirable Triglyceri de: less than 150 mg/dLBorderline High Triglyceride 150-199 mg/dLHigh Triglyceride: 200-499 mg/dLVery High Triglyceride: greater than or equal to 5OO mg/dL Cholesterol 295(H) <200 mg/dL [facility] Comment:Desirable Cholestero l: less than 200 mg/dLBorderline High Cholesterol: 200-239 mg/dLHigh Cholesterol: greater than 239 mg/dL LDL Cholesterol Calculated 197(H) <100 mg/dL [facility] Comment:Desirable LDL: less than 100 mg/dLNear Optimal/Above Optimal LDL: 110- 129 mg/dLBorderline High LDL: 130-159 mg/dLHigh LDL: 160-189 mg/dLVery High LDL: greater than or equal to 190 mg/dL HDL Cholesterol 57 >40 mg/dL [facility] Comment:Desirable HDL: great er than 40 mg/dL Note: This HDL assay may give artificially low results in patients with liver disease. Blood Venous blood specimen / Unknown 10/07/2024 12:53 PM EDT 10/07/2024 4:04 PM EDT Katrin López MD LAB BLOOD ORDERAB LES Final Result [facility] [address] [place] [phone] from Last 3 Months or Most Recently Relevant to Health Maintenance [place] [address] [address] C3 [facility] MEDICAID STAND ADULT Care Teams Water Control Station Engineer Relationship Specialty Start Date End Date Katrin Santoyo MD [address] [place] [phone] PCP - General Internal Medicine 12/13/22 Edison Vieira MD [address] [place] [phone] Pulmonary Disease 04/07/24 Joe Devi MD [address] [place] [address] 3[address] [place] [address] Gastroenterology 04/07/24 Chuy Mcmanus MD [address] [place] [address] [place] [address] Bariatrics 09/25/24 Sveta Lazaro, RN [address] [place] [phone] Registered Nurse Family Medicine 11/29/24 Leslie Kline 11/29/24 Carito Roche DNP [address] [facility], [address] [place] [address] Nephrology 04/07/24 [facility] 12/14/24
--- OUTSIDE RECORDS SUMMARY | 2025-03-18 12:50 | XMS_ITS | Encounter Summary ---
Author Organization [facility] Address [address] [place] [address] Care Team Providers Care Paint Process Engineer Name Role Phone WhitewoodDeep medina Niko LOPEZ Primary Care Provider Encounter Details Date Type Department Care Team (Late st Contact Info) Description 02/19/2020 Scanned Document [facility] [address] [place], [place] [phone] Arben Fountain, NOLVIA [address] [place] [address] Social History Tobacco Use Types [...] 2 10/02/2019 [facility] of Occupat ional Health - Occupational Stress [...] documented as of this encounter Care Teams Paint Process Engineer Relationship Specialty Start Date End Date Deep Pruitt APRN PCP - General 05/22/19 documented as of this encounter
--- OUTSIDE RECORDS SUMMARY | 2025-03-18 12:50 | XMS_ITS | Encounter Summary ---
Author Organization [facility] [employer] [facility] Address [address] [place] [phone] Care Team Providers Care Sugar Coating Hand Name Role Phone Deep Pruitt APRN Primary Care Provider Reason for Visit * Reason Onset Date Comments Medication Refill 09/30/2021 Encounter Details Date Type Department Care Team (Late st Contact Info) Description 09/30/2021 Refill [facility] [address] [place] [address] Kaity Harris, FIRST SAMPLER [address] [place] [phone] Medication Refill Social History Tobacco Use Types [...] 09/14/2021 [facility] of Occupat ional [facility] - [...] as of this encounter Care Teams Sugar Coating Hand Relationship Specialty Start Date End Date Deep Pruitt APRN PCP - General 05/22/19 documented as of this encounter
--- OUTSIDE RECORDS SUMMARY | 2025-03-18 12:50 | XMS_ITS | Encounter Summary ---
Author Organization [facility] Address [address] [place] [address] Care Team Providers Care Station Examiner Name Role Phone Deep Pruitt APRN Primary Care Provider Reason for Visit * Reason Comments Medication Refill Encounter Details Date Type Department Care Team ([facility] st Contact Info) Description 01/29/2021 Refill [facility] [address] [place], [place] [phone] Deep Pruitt APRN [address] [place] [address] Medication Refill Social History Tobacco [...] Date Recorded PHQ-2 Total Score 6 01/21/2021 [facility] of Occupat ional Health [...] documented as of this encounter Care Teams Station Examiner Relationship Specialty Start Date End Date Deep Pruitt APRN PCP - General 05/22/19 documented as of this encounter
--- OUTSIDE RECORDS SUMMARY | 2025-03-18 12:50 | XMS_ITS | Encounter Summary ---
Author Organization [facility] Address [address] [place] [address] Care Team Providers Care Bell Ringer Name Role Phone [place], Deep Niko LOPEZ Primary Care Provider Reason for Visit * Reason Onset Date Comments Medication Refill 10/12/2021 Encounter Details Date Type Department Care Team (Late st Contact Info) Description 10/12/2021 Refill [facility] [address] [place] [address] Cecile Oneal, DMD [address] [place] [address] Medication Refill Social History Tobacco [...] [facility] - [facility]ational Stress [...] documented as of this encounter Care Teams Bell Ringer Relationship Specialty Start Date End Date Deep Pruitt APRN PCP - General 05/22/19 documented as of this encounter
--- OUTSIDE RECORDS SUMMARY | 2025-03-18 12:50 | XMS_ITS | Encounter Summary ---
Author Organization [facility] Address [address] [place] [phone] Care Team Providers Care Finish Repair Worker Name Role Phone Deep Pruitt APRN Primary Care Provider [phone] Reason for Visit * Reason Onset Date Comments Medication Refill 10/12/2021 Encounter Details Date Type Department Care Team (Late st Contact Info) Description 10/12/2021 Refill [facility] [address] [facility][Note 3] [address] [facility][Note 3] 2nd [place] [address] Taylor Malagon, BANNER [address] [place] [phone] Medication Refill Social History Tobacco Use Types [...] 10/12/2021 [facility] of Occupat ional Health [...] documented as of this encounter Care Teams Finish Repair Worker Relationship Specialty Start Date End Date Deep Pruitt APRN PCP - General 05/22/19 documented as of this encounter
--- OUTSIDE RECORDS SUMMARY | 2025-03-18 12:50 | XMS_ITS | Encounter Summary ---
Author Organization [facility] Address [address] [place] [address] Care Team Providers Care Lieutenant Governor Name Role Phone Deep Pruitt APRN Primary Care Provider Reason for Visit * Reason Comments Medication Refill Encounter Details Date Type Department Care Team ([facility] st Contact Info) Description 11/24/2020 Telephone [facility] [address] [place] [address] Deep Pruitt APRN [address] [place] [address] Medication Refill Social History Tobacco [...] Date Recorded PHQ-2 Total Score 0 11/18/2020 [facility] of [...] of certain medication. Call back number is [phone] (hungarian speaking) preferred pharmacy is [facility] [place] [address] [address] documented in this encounter Plan of Treatment [...] documented as of this encounter Care Teams Lieutenant Governor Relationship Specialty Start Date End Date Deep Pruitt APRN PCP - General 05/22/19 documented as of this encounter
--- OUTSIDE RECORDS SUMMARY | 2025-03-18 12:50 | XMS_ITS | Encounter Summary ---
Author Organization [facility] Address [address] [place] [address] Care Team Providers Care Boiler Inspector Name Role Phone Deep Pruitt APRN Primary Care Provider Reason for Visit * Reason Comments Medication Refill Encounter Details Date Type Department Care Team ([facility] st Contact Info) Description 02/01/2021 Refill [facility] [address] [place], [place] [phone] Deep Pruitt APRN [address] [place] [address] Medication Refill Social History Tobacco [...] Date Recorded PHQ-2 Total Score 6 01/21/2021 [facility]at ional [...] documented as of this encounter Care Teams Boiler Inspector Relationship Specialty Start Date End Date Deep Pruitt APRN PCP - General 05/22/19 documented as of this encounter
--- OUTSIDE RECORDS SUMMARY | 2025-03-18 12:50 | XMS_ITS | Encounter Summary ---
Author Organization [facility] Address [address] [place] [address] Care Team Providers Care Registered Nurse Name Role Phone Deep Pruitt APRN Primary Care Provider Reason for Visit * Reason Onset Date Comments Medication Refill 10/12/2021 Encounter Details Date Type Department Care Team (Late st Contact Info) Description 10/12/2021 Refill [facility] [address] [place] [address] Anahi Rossi, JOHN [address] [place] [address] Medication Refill Social History Tobacco [...] documented as of this encounter Care Teams Registered Nurse Relationship Specialty Start Date End Date Deep Pruitt APRN PCP - General 05/22/19 documented as of this encounter
--- OUTSIDE RECORDS SUMMARY | 2025-03-18 12:50 | XMS_ITS | Encounter Summary ---
Author Organization [facility] Address [address] [place] [address] Care Team Providers Care Repair Mechanic Name Role Phone Deep Pruitt APRN Primary Care Provider Reason for Visit * Reason Comments Medication Problem Encounter Details Date Type Department Care Team ([facility] Contact Info) Description 10/11/2021 Telephone [facility] [address] [place] [address] Deep Pruitt APRN [address] [place] [address] Medication Problem Social History Tobacco [...] 08 of October Spoke to sissy via block layer #2165 (patti) patient states she spoke to the [...] if patient medication can be resent to [facility] [place] [place] - [address] . Best contact: [phone] documented in this encounter Plan of Treatment Not on file documented as of this encounter Visit Diagnoses Not on filedocumented in this encounter Additional Health Concerns Infection Onset Date Last Indicated Resolved Time COVID-19 09/29/2021 09/29/2021 10/19/2021 7:19 PM EDT Assessment Noted Time PHQ-9 Depression Total Score: 0 10/08/19 22 1:27 PM EDT documented as of this encounter Care Teams Repair Mechanic Relationship Specialty Start Date End Date Deep Pruitt APRN PCP - General 05/22/19 documented as of this encounter
--- OUTSIDE RECORDS SUMMARY | 2025-03-18 12:50 | XMS_ITS | Encounter Summary ---
Author Organization [facility] Address [address] [place] [address] Care Team Providers Care Systems Mgr Name Role Phone RiversideDeep medina Niko LOPEZ Primary Care Provider Reason for Visit * Reason Comments Medication Refill Encounter Details Date Type Department Care Team ([facility] st Contact Info) Description 01/04/2021 Refill [facility] at [address] [facility] [address] [place] [phone] Zena Hines PA [address] [place] [phone] Medication Refill Social History Tobacco Use [...] as of this encounter Care Teams Systems Mgr Relationship Specialty Start Date End Date Deep Pruitt APRN PCP - General 05/22/19 documented as of this encounter
--- OUTSIDE RECORDS SUMMARY | 2025-03-18 12:50 | XMS_ITS | Encounter Summary ---
Author Organization [facility] Address [address] [place] [address] Care Team Providers Care Parole Supervisor Name Role Phone Deep Pruitt APRN Primary Care Provider Encounter Details Date Type Department Care Team ([facility] st Contact Info) Description 11/14/2020 Scanned Document [facility] [address] [place], [place] [phone] Deep Pruitt APRN [address] [place] [address] Social History Tobacco Use Types [...] Recorded PHQ-2 Total Score 0 11/18/2020 [facility] Occupat ional Health [...] documented as of this encounter Care Teams Parole Supervisor Relationship Specialty Start Date End Date Deep Pruitt APRN PCP - General 05/22/19 documented as of this encounter
--- OUTSIDE RECORDS SUMMARY | 2025-03-18 12:51 | XMS_ITS | Encounter Summary ---
Author Organization [facility] Address [address] [place] [address] Care Team Providers Care Community Support Worker Name Role Phone Deep Pruitt APRN Primary Care Provider [phone] Reason for Visit * Reason Comments Medication Refill Encounter Details Date Type Department Care Team ([facility] st Contact Info) Description 11/05/2020 Refill [facility] [address] [place] [address] Deep Pruitt APRN [address] [place] [phone] Medication Refill Social History Tobacco Use [...] Answer Date Recorded PHQ-2 Score 2 07/07/2020 [facility] of Occupat ional Health [...] as of this encounter Care Teams Community Support Worker Relationship Specialty Start Date End Date Deep Pruitt APRN PCP - General 05/22/19 documented as of this encounter
--- OUTSIDE RECORDS SUMMARY | 2025-03-18 12:51 | XMS_ITS | Encounter Summary ---
Author Organization [facility] Address [address] [place] [address] Care Team Providers Care Visual Manager Name Role Phone Deep Pruitt APRN Primary Care Provider Reason for Visit * Reason Comments Other Appointment Encounter Details Date Type Department Care Team ([facility] Contact Info) Description 10/07/2021 Telephone [facility] [address] [place] [address] Deep Pruitt APRN [address] [place] [address] Other; Appointment Social History Tobacco [...] Date Recorded PHQ-2 Total Score 0 10/07/2021 [facility] of Occupat ional [...] after dropped call ,patient has virtual appt [phone] documented in this encounter Plan of Treatment Not on file documented as of this encounter Visit Diagnoses Not on filedocumented in this encounter Additional Health Concerns Infection Onset Date Last Indicated Resolved Time COVID-19 09/29/2021 09/29/2021 10/19/2021 7:19 PM EDT Assessment Noted Time PHQ-9 Depression Total Score: 0 10/08/19 22 1:27 PM EDT documented as of this encounter Care Teams Visual Manager Relationship Specialty Start Date End Date Deep Pruitt APRN PCP - General 05/22/19 documented as of this encounter
--- OUTSIDE RECORDS SUMMARY | 2025-03-18 12:51 | XMS_ITS | Encounter Summary ---
Author Organization [facility] [employer] [facility] [employer] [facility] Address [address] [place] [address] Care Team Providers Care Hospital Scientist Name Role Phone Deep Pruitt APRN Primary Care Provider Reason for Visit * Reason Onset Date Comments Medication Refill 09/22/2021 Encounter Details Date Type Department Care Team (Late st Contact Info) Description 09/22/2021 Refill [facility] at [address] [address] [facility] 2nd [place] [address] Kaity Harris, MAINSPRING WINDER [address] [place] [phone] Medication Refill Social History Tobacco Use Types [...] [facility] - Occupational Stress Questionnaire Answer Date [...] as of this encounter Care Teams Hospital Scientist Relationship Specialty Start Date End Date Deep Pruitt APRN PCP - General 05/22/19 documented as of this encounter
--- OUTSIDE RECORDS SUMMARY | 2025-03-18 12:51 | XMS_ITS | Encounter Summary ---
Author Organization [facility] Address [address] [place] [address] Care Team Providers Care Car Rental Agent Name Role Phone Deep Pruitt Niko LOPEZ Primary Care Provider Reason for Visit * Reason Onset Date Comments Medication Refill 09/22/2021 Encounter Details Date Type Department Care Team (Late st Contact Info) Description 09/22/2021 Refill [facility] Nutrition at [address] [facility] [address] [place] [phone] Zena Hines PA [address] [place] [phone] Medication Refill Social History Tobacco Use [...] 09/14/2021 [facility] Health - Occupational Stress Questionnaire Answer Date [...] review pt is no longer seeing Zena Sanchezco at [facility] for DM mangement. Katrin Sullivan documented in this encounter Plan [...] as of this encounter Care Teams Car Rental Agent Relationship Specialty Start Date End Date Deep Pruitt APRN PCP - General 05/22/19 documented as of this encounter
--- OUTSIDE RECORDS SUMMARY | 2025-03-18 12:51 | XMS_ITS | Encounter Summary ---
Author Organization [facility] Address [address] [place] [address] Care Team Providers Care Institution Librarian Name Role Phone Deep Pruitt APRN Primary Care Provider Reason for Visit * Reason Comments Medication Refill Encounter Details Date Type Department Care Team ([facility] st Contact Info) Description 11/11/2020 Refill [facility] [address] [place] [address] Deep Pruitt APRN [address] [place] [phone] Medication Refill Social History Tobacco Use [...] documented as of this encounter Care Teams Institution Librarian Relationship Specialty Start Date End Date Deep Pruitt APRN PCP - General 05/22/19 documented as of this encounter
--- OUTSIDE RECORDS SUMMARY | 2025-03-18 12:51 | XMS_ITS | Encounter Summary ---
Author Organization [facility] [employer] Address [address] [place] [address] Care Team Providers Care Field Ironworker Name Role Phone Deep Pruitt APRN Primary Care Provider Reason for Visit * Reason Onset Date Comments Medication Refill 09/20/2021 Encounter Details Date Type Department Care Team (Late st Contact Info) Description 09/20/2021 Refill [facility] [address] [facility] [address] [facility] 2nd [place] [address] Ricarda Du MD [address] [place] [phone] Medication Refill Social History Tobacco Use Types [...] Score 5 09/14/2021 [facility] [...] Telephone Encounter - Ezio Ballard RN - 09/20/2021 8:29 AM EDT Per [...] as of this encounter Care Teams Field Ironworker Relationship Specialty Start Date End Date Deep Pruitt APRN PCP - General 05/22/19 documented as of this encounter
--- OUTSIDE RECORDS SUMMARY | 2025-03-18 12:51 | XMS_ITS ---
Author Organization [facility] Address [address] [place] [address] Care Team Providers Care Audiovisual Tech Name Role Phone Katrin Santoyo G Primary Care Provider [phone] Transplant Episode Kidney Candidate [facility] ([place], [place]) - [facility] Evaluation began on 01/30/2025 Marked as Active on 01/30/2025 Kidney CoordinatorRadha Winter RN Phone: N/A Fax: N/A Email: N/A Scores Score Value Updated Exceptions/Reas ons CPRA Not available EPTS (Calc) 53 03/18/2025 [place] [facility] Diagnosis Organ Primary Contributory Kidney Diabetes Mellitus - Type II Care Team Name Role Phone Fax Email Radha Winter RN Kidney Coordinator N/A N/A N/A Grayson Rodriguez Referring Physician [phone] N/A Events Pre-Transplant Referred: 01/03/2025 Evaluation began: 01/30/2025 Appointments (02/15/2025 - 04/17/2025) When With Visit Type Description 03/05/2025 Transplant - Destiney Pagan Transplant Evalua tion Visit No Show 03/25/2025 Transplant - Destiney Pagan Transpla nt Evaluation Visit Dialysis History Dialysis History Start End Type Comments Center 12/24/2024 [facility] Dialysis Center Information Center Phone Fax Address [facility] [phone] [address] [facility] [address]
--- OUTSIDE RECORDS SUMMARY | 2025-03-18 12:53 | XMS_ITS | Encounter Summary ---
Author Organization [facility] Address [address] [place] [address] Care Team Providers Care Coat Check Attendant Name Role Phone Deep Pruitt APRN Primary Care Provider Reason for Visit * Reason Comments Medication Refill Encounter Details Date Type Department Care Team ([facility] st Contact Info) Description 11/11/2020 Refill [facility] [address] [place] [address] Deep Pruitt APRN [address] [place] [phone] Medication Refill Social History Tobacco Use [...] Answer Date Recorded PHQ-2 Score 2 07/07/2020 [facility] Occupat ional [...] documented as of this encounter Care Teams Coat Check Attendant Relationship Specialty Start Date End Date Deep Pruitt APRN PCP - General 05/22/19 documented as of this encounter
--- OUTSIDE RECORDS SUMMARY | 2025-03-18 12:53 | XMS_ITS | Encounter Summary ---
Author Organization [facility] Address [address] [place] [phone] Care Team Providers Care Loading Dock Hand Name Role Phone Deep Pruitt APRN Primary Care Provider Encounter Details Date Type Department Care Team (Latest Contact Info) Description 09/09/2021 Transcribed Orders [facility] [address] [place] [address] Deep Pruitt APRN [address] [place] [address] Encounter for routine screening for [...] Date Recorded PHQ-2 Total Score 2 09/08/2021 [facility] - Occupational Stress Questionnaire Answer [...] Orde r Schedule TSH w/reflex to FT4 ([facility] LMW Q YH) Lab Routine Encounter [...] health care facility TSH W/REFLEX TO FT4 ([facility] LMW Q YH) Routine 09/09/2021 12:05 [...] prostate Routine general medical examination at a [facility] care facility ALBUMIN/CREATININE PANEL, URINE, RANDOM Routine 09/09/2021 11:01 AM EDT Encounter for routine screening for malformation using ultrasonics Special screening for malignant neoplasm of prostate Routine general medical examination at a [facility] care facility CBC WITH AUTO DIFFERENTIAL Routine 09/09/2021 10:58 AM EDT Encounter for routine screening for malformation using ultrasonics Special screening for malignant neoplasm of prostate Routine general medical examination at a [facility] facility CBC AND DIFFERENTIAL Routine 09/09/2021 10:58 AM EDT Encounter for routine screening for malformation using ultrasonics Special screening for malignant neoplasm of prostate Routine general medical examination at a [facility] care facility HEMOGLOBIN A1C Routine 09/09/2021 10:58 AM EDT Encounter for routine screening for malformation using ultrasonics Special screening for malignant neoplasm of prostate Routine general medical examination at a [facility] care facility documented in this encounter Results * PSA, total and free (09/09/2021 12:05 PM EDT) Prostate Specific Antigen, Total (YH) 0.578 0.000 - 3.900 ng/mL 09/13/2021 1:44 PM EDT [facility] DEPARTMENT OF LABORATORY MEDICINE Prostate Specific Antigen, Free (YH) 0.28 0.00 - 3.90 ng/mL 09/13/2021 1:44 PM EDT [facility] DEPARTMENT OF LABORATORY MEDICINE Comment:Prostate Specific An tigen, Free Percentage can not be calculated. PSA, Total value out of appropriate range. Blood Venipuncture / Unknown 09/09/2021 12:05 PM EDT 09/13/2021 10:48 AM EDT Narrative [facility] DEPARTMENT OF LABORATORY MEDICINE - 09/13/2021 [...] BLOOD ORDERABLES Final Result Performing Organization Address City/State/[facility] Co de Phone Number [facility] DEPARTMENT OF LABORATORY MEDICINE [address] [place] [address] * (ABNORMAL) Comprehensive metabolic panel (09/09/2021 12:05 PM EDT) Sodium 140 136 - 144 mmol/L 09/09/2021 2:42 PM EDT [facility] Potassium 4.9 3.3 - 5.3 mmol/L 09/09/2021 2:42 PM EDT [facility] Chloride 101 98 - 107 mmol/L 09/09/2021 2:42 PM EDT [facility] CO2 27 20 - 30 mmol/L 09/09/2021 2:42 PM EDT [facility] Anion Gap 12 7 - 17 09/09/2021 2:42 PM EDT [facility] Glucose 148(H) 70 - 100 mg/dL 09/09/2021 2:42 PM EDT [facility] BUN 31(H) 6 - 20 mg/dL 09/09/2021 2:42 PM EDT [facility] Creatinine 1.40(H) 0.40 - 1.30 mg/dL 09/09/2021 2:42 PM EDT [facility] Calcium 9.5 8.8 - 10.2 mg/dL 09/09/2021 2:42 PM T [facility] BUN/Creatinine Ratio 22.1 8.0 - 23.0 09/2021 2:42 PM EDT [facility] Total Protein 6.4(L) 6.6 - 8.7 g/dL 09/09/2021 2:42 PM EDT [facility] Albumin 3.6 3.6 - 4.9 g/dL 09/09/2021 2:42 PM EDT [facility] Total Bilirubin 0.2 <=1.2 mg/dL 09/09/2021 2:42 PM EDT [facility] Alkaline Phosphatase 135(H) 9 - 122 U/L 09/09/2021 2:42 PM T [facility] Alanine Aminotransferase (ALT) 40 9 - 59 U/L 09/09/2021 2:42 PM EDT [facility] Comment:Calcium dobesilate c an cause artificially low ALT results at therapeutic concentrations Aspartate Aminotransferase (AST) 33 10 - 35 U/L 09/09/2021 2:42 PM T [facility] Globulin 2.8 2.3 - 3.5 g/dL 09/09/2021 2:42 PM T [facility] A/G Ratio 1.3 1.0 - 2.2 09/09/2021 2:42 PM EDT [facility] AST/ALT Ratio 0.8 See Comment 09/09/2021 2:42 PM T [facility] Comment: Adult with mild elevations of transaminases (< 5 times upper limit of normal): AST/ALT > 2 suggests alcoholic liver injury AST/ALT < 1 suggests non-alcoholic fatty liver disease (NAFLD) [place] (healthy): AST/ALT can be > 3 on day 0 AST/ALT < 2 by day 5 The thresholds provided focus on the most common etiologies of elevated serum transaminase levels and the associated alteration of AST:ALT ratios; they are not intended to exclude other feasible and clinically appropriate possibilities eGFR (Afr Amer) >60 >60 mL/min/1.7 3m2 09/09/2021 2:42 PM EDT [facility] Comment: Values under 60mL/min/1.73m2 may indicate CKD if noted for more than 3 months. eGFR is only valid if creatinine is at steady state. eGFR (NON -[place]) 53 >60 mL/min/1.7 3m2 09/09/2021 2:42 PM EDT [facility] Comment: Values under 60mL/min/1.73m2 may indicate CKD if noted for more than 3 months. eGFR is only valid if creatinine is at steady state. Blood Venipuncture / Unknown 09/09/2021 12:05 PM EDT 09/09/2021 12:05 PM EDT Deep Pruitt IMAGING SYSTEM ADMINISTRATOR LAB BLOOD ORDERABLES Final Result Performing Organization Address City/[facility]/ZIP Co de Phone Number [facility] [address] [place] [address] * TSH w/reflex to FT4 ([facility] LMW Q YH) (09/09/2021 12:05 PM EDT) Thyroid Stimulating Hormone 3.640 See Comment IU/mL 09/09/2021 2:42 PM EDT [facility] Comment: Male & Non- Females: 0.270-4.200 IU/mL 1st Trimester: 0.110-3.480 IU/mL 2nd Trimester: 0.320-3.850 IU/mL Blood Venipuncture / Unknown 09/09/2021 12:05 PM EDT 09/09/2021 12:05 PM EDT Deepenio Pruitt IMAGING SYSTEM ADMINISTRATOR LAB BLOOD ORDERABLES Final Result [facility] [address] [place] [address] * LDL cholesterol, direct (09/09/2021 12:05 PM EDT) LDL Direct 63 See Comment mg/dL 09/09/2021 2:41 PM EDT [facility] Comment: LDL Cholesterol (mg/dL) Adults (>=18 years) Children (<18 years) Desirable <100 <110 Above Desirable 100-129 Not Established Borderline-High 130-159 110-129 High 160-189 >=130 Very High >=190 Not Established Blood Venipuncture / Unknown 09/09/2021 12:05 PM EDT 09/09/2021 12:05 PM EDT Deep Pruitt APRN LAB BLOOD ORDERABLES Final Result [facility] [address] [place] [address], [place] [phone] * (ABNORMAL) Albumin/creatinine panel, urine, random (09/09/2021 11:01 AM EDT) Albumin, Urine, Random 1,616.3 Reference Range Not Established mg/L 09/09/2021 2:52 PM EDT [facility] Creatinine, Urine, Random 35 Reference Range Not Established mg/dL 09/09/2021 2:52 PM EDT [facility] Albumin/Creatin ine Ratio, Urine, Random 4,684.9(H ) <30.0 mg/g Cr 09/09/2021 2:52 PM EDT [facility] Comment: High albuminuria (formerly microalbuminuria): 30-300 mg/g Cr Very high albuminuria (overt albuminuria): >300 mg/g Cr Urine Collection / Unknown 09/09/2021 11:01 AM EDT 09/09/2021 11:01 AM EDT us Deep Pruitt IMAGING SYSTEM ADMINISTRATOR URINE ORDERABLES Final Resu lt [facility] [address] [place] [address], [place] [phone] * (ABNORMAL) CBC auto differential (09/09/2021 10:58 AM EDT) WBC 13.5(H) 4.0 - 11.0 x1000/ L 09/09/2021 2:16 PM EDT [facility] RBC 5.05 4.00 - 6.00 M/ L 09/09/2021 2:16 PM EDT [facility] Hemoglobin 13.9 13.2 - 17.1 g/dL 09/09/2021 2:16 PM EDT [facility] Hematocrit 46.10 38.50 - 50.00 % 09/09/2021 2:16 PM EDT [facility] MCV 91.3 80.0 - 100.0 fL 09/09/2021 2:16 PM EDT [facility] MCH 27.5 27.0 - 33.0 pg 09/09/2021 2:16 PM EDT [facility] MCHC 30.2(L) 31.0 - 36.0 g/dL 09/09/2021 2:16 PM EDT [facility] RDW-CV 15.1(H) 11.0 - 15.0 % 09/09/2021 2:16 PM EDT [facility] Platelets 298 150 - 420 x1000/ L 09/09/2021 2:16 PM EDT [facility] MPV 13.0(H) 8.0 - 12.0 fL 09/09/2021 2:16 PM EDT [facility] Neutrophils 63.6 39.0 - 72.0 % 09/09/2021 2:16 PM EDT [facility] Lymphocytes 22.5 17.0 - 50.0 % 09/09/2021 2:16 PM EDT [facility] Monocytes 9.2 4.0 - 12.0 % 09/09/2021 2:16 PM EDT [facility] Eosinophils 3.6 0.0 - 5.0 % 09/09/2021 2:16 PM EDT [facility] Basophil 0.4 0.0 - 1.4 % 09/09/2021 2:16 PM EDT [facility] Immature Granulocytes 0.7 0.0 - 1.0 % 09/09/2021 2:16 PM EDT [facility] nRBC 0.0 0.0 - 1.0 % 09/09/2021 2:16 PM EDT [facility] ANC(Abs Neutrophil Count) 8.60(H) 2.00 - 7.60 x 1000/ L 09/09/2021 2:16 PM EDT [facility] Absolute Lymphocyte Count 3.05 0.60 - 3.70 x 1000/ L 09/09/2021 2:16 PM EDT [facility] Monocyte Absolute Count 1.24(H) 0.00 - 1.00 x 1000/ L 09/09/2021 2:16 PM EDT [facility] Eosinophil Absolute Count 0.49 0.00 - 1.00 x 1000/ L 09/09/2021 2:16 PM EDT [facility] Basophil Absolute Count 0.06 0.00 - 1.00 x 1000/ L 09/09/2021 2:16 PM EDT [facility] Absolute Immature Granulocyte Count 0.10 0.00 - 0.30 x 1000/ L 09/09/2021 2:16 PM EDT [facility] Absolute nRBC 0.00 0.00 - 1.00 x 1000/ L 09/09/2021 2:16 PM T [facility] Blood Venipuncture / Unknown 09/09/2021 10:58 AM EDT 09/09/2021 10:58 AM EDT Deep Pruitt APRN LAB BLOOD ORDERABLES Final Result Performing Organization Address City/[facility]/ZIP Co de Phone Number [facility] [address] [place] [id number] [phone] * (ABNORMAL) Hemoglobin A1c (09/09/2021 10:58 AM EDT) Hemoglobin A1c 11.5(H) 4.0 - 5.6 % 09/10/2021 6:36 PM EDT [facility]PARTMENT OF LABORATORY MEDICINE Comment: Hemoglobin [...] mg/dL 283 mg/dL 09/10/2021 6:36 PM EDT [facility] DEPARTMENT OF LABORATORY MEDICINE Comment: Estimated [...] BLOOD ORDERABLES Final Result Performing Organization Address City/[facility]/ZIP Co de Phone Number [facility] DEPARTMENT OF LABORATORY MEDICINE [address] [place] [address], [place] [phone] documented in this encounter Visit Diagnoses Diagnosis [...] documented as of this encounter Care Teams Loading Dock Hand Relationship Specialty Start Date End Date Deep Pruitt APRN PCP - General 05/22/19 documented as of this encounter
--- OUTSIDE RECORDS SUMMARY | 2025-03-18 12:53 | XMS_ITS | Encounter Summary ---
Author Organization [facility] Address [address] [place] [address] Care Team Providers Care Master Merchandiser Name Role Phone Romelia Pruittian Niko LOPEZ Primary Care Provider Encounter Details Date Type Department Care Team (Late st Contact Info) Description 08/09/2021 Scanned Document [facility] [address] [place] [address] External, Provider Social History Tobacco Use Types [...] Total Score 4 07/13/2021 [facility] of Occupat [...] as of this encounter Care Teams Master Merchandiser Relationship Specialty Start Date End Date Deep Pruitt APRN PCP - General 05/22/19 documented as of this encounter
--- OUTSIDE RECORDS SUMMARY | 2025-03-18 12:53 | XMS_ITS | Encounter Summary ---
Author Organization [facility] Address [address] [place] [phone] Care Team Providers Care Business Process Representative Name Role Phone Deep Pruitt APRN Primary Care Provider Encounter Details Date Type Department Care Team (Late st Contact Info) Description 08/05/2021 Orders Only [facility] [address] [place] [address] Carolyn Marin MD [address] [place] [phone] Essential hypertension Social History Tobacco Use [...] Date Recorded PHQ-2 Total Score 4 07/13/2021 [facility] of Occupat ional [...] EDT) Anatomical Region Laterality Modality Chest Other Carolyn Marin MD CV MONITORS ORDERABLES Fauzia l Result documented in this encounter Visit Diagnoses Diagnosis Essential hypertension Unspecified essential hypertension documented in this encounter Additional Health Concerns Infection Onset Date Last Indicated Resolved Time COVID-19 09/29/2021 09/29/2021 10/19/2021 7:19 PM EDT Assessment Noted Time PHQ-9 Depression Total Score: 11 022 2:28 PM EST documented as of this encounter Care Teams Business Process Representative Relationship Specialty Start Date End Date Deep Pruitt APRN PCP - General 05/22/19 documented as of this encounter
--- OUTSIDE RECORDS SUMMARY | 2025-03-18 12:53 | XMS_ITS | Encounter Summary ---
Author Organization [facility] Address [address] [place] [address] Care Team Providers Care Bunch Maker Name Role Phone Deep Pruitt APRN Primary Care Provider [phone] Reason for Visit * Reason Comments Other Advice Only Encounter Details Date Type Department Care Team ([facility] Contact Info) Description 09/28/2021 Telephone [facility] [address] [place] [address] Deep Pruitt APRN [address] [place] [address] Other; Advice Only Social History [...] Date Recorded PHQ-2 Total Score 5 09/14/2021 [facility] of Occupat [...] be given because his underlying condition. Patient [phone] documented in this encounter Plan of Treatment Not on file documented as of this encounter Visit Diagnoses Not on filedocumented in this encounter Additional Health Concerns Infection Onset Date Last Indicated Resolved Time COVID-19 09/29/2021 09/29/2021 10/19/2021 7:19 PM EDT Assessment Noted Time PHQ-9 Depression Total Score: 7 09/15/19 22 10:31 AM EDT documented as of this encounter Care Teams Bunch Maker Relationship Specialty Start Date End Date Deep Pruitt APRN PCP - General 05/22/19 documented as of this encounter
--- OUTSIDE RECORDS SUMMARY | 2025-03-18 12:53 | XMS_ITS | Encounter Summary ---
Author Organization [facility] Address [address] [place] [address] Care Team Providers Care Encyclopedia Research Worker Name Role Phone Deep Pruitt APRN Primary Care Provider Reason for Visit * Reason Comments Medication Refill Encounter Details Date Type Department Care Team ([facility] st Contact Info) Description 09/23/2020 Refill [facility] [address] [place] [address] Deep Pruitt APRN [address] [place] [phone] Medication Refill Social History Tobacco Use [...] documented as of this encounter Care Teams Encyclopedia Research Worker Relationship Specialty Start Date End Date Deep Pruitt APRN PCP - General 05/22/19 documented as of this encounter
--- OUTSIDE RECORDS SUMMARY | 2025-03-18 12:53 | XMS_ITS | Encounter Summary ---
Author Organization [facility] Address [address] [place] [address] Care Team Providers Care Podiatric Aide Name Role Phone Romelia Pruittian Niko LOPEZ Primary Care Provider Reason for Visit * Reason Comments Medication Refill Encounter Details Date Type Department Care Team ([facility] st Contact Info) Description 09/16/2021 Refill [facility] [address] [place] [address] Carlos Eduardo Joyner MD [address] [place] [phone] Medication Refill Social History Tobacco Use [...] documented as of this encounter Care Teams Podiatric Aide Relationship Specialty Start Date End Date Deep Pruitt APRN PCP - General 05/22/19 documented as of this encounter
--- OUTSIDE RECORDS SUMMARY | 2025-03-18 12:53 | XMS_ITS | Clinical Summary ---
Author Organization [address] Address [address] [place] [id number] Care Team Providers Care Shot Tube Machine Tender Name Role Phone Deep Pruitt [...] edema will order Compression sleeves today from [facility] today, Put on lower legs during [...] lancets (ONETOUCH DELICA PLUS LANCET) 30 gauge [facility] lancetsIndicatio ns:Type 2 diabetes mellitus with diabetic [...] of insulin, Duration 99, Feeding difficulty R63.30 41321 mL 06/23/19 Active metFORMIN (GLUCOPHAGE) 1000 mg [...] AM with Arben Fountain DPM at the [facility] -Will f/u with Pt in a month [...] appointment and was informed he can call [phone] to find a closer time Assessment & Plan (02/19/2022 1:59 PM EDT): -The Pt went to his Irrigation Laborer and was c/o right kidney pain for [...] worse at night - pathway utilized through [facility], patient eligible for molnupiravir, may [...] the Pt's TSH levels Results for DARREL BHARWDAJ ( ) as of 09/12/2021 12:10 Ref. [...] 15:12 Ref. Range 04/07/2020 SPEP Interpretation Unknown Sssza-3-Roqhkhvq Latest Ref Range: 0.2 - 0.3 g/dL 0.3 Hglvb-8-Guucuags Latest Ref Range: 0.5 - 0.9 g/dL 1.1 (H) Interpretation Unknown Comment Only Abnormal Protein Band 2 Latest Ref Range: NONE DETECTED g/dL CANCELED Abnormal Protein Band 3 Latest Ref Range: NONE DETECTED g/dL CANCELED Vkuj-5-Padklzof Latest Ref Range: 0.4 - 0.6 g/dL 0.5 Mwhc-3-Ipdybwkk Latest Ref Range: 0.2 - 0.5 g/dL 0.5 Gamma Globulin Latest Ref Range: 0.8 - 1.7 g/dL 1.1 Abnormal Protein Band 1 Latest Ref Range: NONE DETECTED g/dL CANCELED Protein, Total Latest Ref Range: 6.1 - 8.1 g/dL 7.1 Albumin Latest Ref Range: 3.8 - 4.8 g/dL 3.6 (L) Results for DARREL BHARDWAJ ( ) as of 04/08/2020 17:50 Ref. Range 04/07/2020 Free [place] Latest Ref Range: 3.3 - 19.4 mg/L 35.9 (H) Free Lambda Latest Ref Range: 5.7 - 26.3 mg/L 26.6 (H) Free [place]/Lambda Ratio Latest Ref Range: 0.26 - 1.65 [...] 15:12 Ref. Range 04/07/2020 SPEP Interpretation Unknown Zqldi-7-Shmkfhio Latest Ref Range: 0.2 - 0.3 g/dL 0.3 Hfxdw-3-Dghjcqox Latest Ref Range: 0.5 - 0.9 g/dL 1.1 (H) Interpretation Unknown Comment Only Abnormal Protein Band 2 Latest Ref Range: NONE DETECTED g/dL CANCELED Abnormal Protein Band 3 Latest Ref Range: NONE DETECTED g/dL CANCELED Ljar-9-Fnhgijqa Latest Ref Range: 0.4 - 0.6 g/dL 0.5 Ypqk-5-Ecoqnpbz Latest Ref Range: 0.2 - 0.5 g/dL 0.5 Gamma Globulin Latest Ref Range: 0.8 - 1.7 g/dL 1.1 Abnormal Protein Band 1 Latest Ref Range: NONE DETECTED g/dL CANCELED Protein, Total Latest Ref Range: 6.1 - 8.1 g/dL 7.1 Albumin Latest Ref Range: 3.8 - 4.8 g/dL 3.6 (L) Results for DARREL BHARDWAJ ( ) as of 04/08/2020 17:50 Ref. Range 04/07/2020 Free [place] Latest Ref Range: 3.3 - 19.4 mg/L 35.9 (H) Free Lambda Latest Ref Range: 5.7 - 26.3 mg/L 26.6 (H) Free [place]/Lambda Ratio Latest Ref Range: 0.26 - 1.65 [...] of 04/08/2020 17:50 Ref. Range 04/07/2020 Free [place] Latest Ref Range: 3.3 - 19.4 mg/L 35.9 (H) Free Lambda Latest Ref Range: 5.7 - 26.3 mg/L 26.6 (H) Free [place]/Lambda Ratio Latest Ref Range: 0.26 - 1.65 [...] like to speak with his pcp first [phone] Phone Conversation with Pt over the phone: PCP called armenian speaking (uncontrolled diabetic) Pt over the phone, [...] Tried to call the Pt using the Samoan Interpretor Mister Spex, [facility] was not set up so a voice [...] have CC'd Ricarda Du MD, his primary weed sprayer. She has a phone consult with him [...] total) by mouth daily Results for DARREL HBARDWAJ ( ) as of 03/29/2020 08:27 Ref. [...] all the Pt medication bottle be in armenian, Pt had a medication (allopurinoL (ZYLOPRIM) 100 mg tablet) error because he can not read in Sinhala, the Pt was prescribed 1/2 tab but [...] to see me at the front office assistant Latest Reference Range & Units 09/09/21 12/15/21 [...] Taylor Malagon APRN at the Nephrology at [address] [place] [address], The Renal department is working on getting the Pt a 24 hour HTN monitor to assess the effectiveness of his recent medication changes, used armenian interpretor 9217 07/13/2021 Renal Referral Note: Assessment [...] effectiveness of his recent medication changes, used armenian interpretor 9217 07/13/2021 Renal Referral Note: Assessment [...] given a referral to talk with the [facility] Wine Merchant for further assessment of his current diet [...] and magnesium supplements that he said a copra processor told him were good for his kidneys. [...] preparation for his first visit with a weed sprayer, Ricarda Du MD on 04/07/2020. Assessment & Plan (02/12/2020 2:18 PM EDT): Pt was recently in the hospital for Kidney issues, the Pt missed a previous Kidney appointment and will ask Pt to reschedule another Kidney appointment Date & Time 02/25/2020 10:00 AM Provider Taylor Malagon APRN Department [facility] at [address] [facility] Nephrology [address] [facility] 2nd Floor [facility] [address] Comment: Pt needs a Kidney referral due [...] (see MRI of Brain from 2017 under [facility] -Significant deficits on neurologic exam Memory loss and Left handed weakness -Imaging and prior evaluation -Current blood thinning agents is aspirin -Potential details to include, when relevant: poor GAIT, uses a walker to get around -How the diagnosis was made: Pt lived in [facility] at the time, Under Multimedia in [place] see specific file at specific date [id number] Image MRI Result [facility] - MRI BRAIN CVA -09/25/2016 [id number].TIF Image Evaluation [facility]- Left handed weakness note - 02/20/2017 [...] a letter to be given to the [place] advising stating that the Pt is disabled and needs help with housing Is there a form to be fill out from the [facility] advising that the Pt is disabled and needs help with housing t 03/26/21 Oksana Fox to Deep Pruitt STATION BAGGAGE AGENT Summary: Letters needed by patient This commercial lines underwriter met with patient at the clinic today 03.26.21 per nurses request, to assistance with letters that the patient is requesting. This commercial lines underwriter spoke to patient and patient is [...] Patient is also requesting a letter for [facility] advising that he is disabled. Patient stated that he has already applied for and wants this letter to help him get Housing CCM: 15 minutes 04/11/2021 Deep Pruitt APRN Assessment & Plan (05/31/2020 5:20 PM EST): Pt had a CVA from 2017 and needs Neuro clearance before getting a Colonoscopy Presumed etiology of prior stroke (see MRI of Brain from 2017 under [facility] Significant deficits on neurologic exam Memory loss and Left handed weakness Imaging and prior evaluation Current blood thinning agents is aspirin Potential details to include, when relevant: poor GAIT, uses a walker to get around How the diagnosis was made: Pt lived in [facility] at the time, Under [facility] in [place] see specific file at specific date [id number] Image MRI Result [facility] - MRI BRAIN CVA -09/25/2016 [id number] Image Evaluation [facility]- Left handed weakness note - 02/20/2017 [...] is working with his Diabetic Specialist at [facility] and has an appointment next week, will increase his Gababentin to 800 mg PO TID which has helped with his neuropathic pain, Spent 25 mins with Pt using the Sole Scraper Microalbuminuric diabetic nephropathy (HC Code) 09/26/2019 Assessment [...] Ricarda Du MD at the Nephrology at [address] [place] [address] Results for DARREL BHARDWAJ ( ) as [...] for Bariatric surgery and Pt needs a prepress operator Assessment & Plan (09/10/2021 5:42 PM EDT): Pt has a BMI of 40.4 and is working with the wellness clinic to work on his weight loss plan, putting a referral in for Bariatric surgery and Pt needs a prepress operator Assessment & Plan (09/26/2019 9:45 AM EDT): Pt has a BMI of 40.4 and is working with the wellness clinic to work on his weight loss plan, putting a referral in for Bariatric surgery and Pt needs a prepress operator Assessment & Plan (09/09/2019 2:47 PM [...] whole encounter. The interview was conducted in Samoan which is my [place] language. I have encouraged Mr. Bhardwaj to contact us with any questions, concerns or clinical changes. Plan: 1. Continue current therapy. 2. No need for supplemental oxygen. Assessment & Plan (12/23/2021 12:10 PM EDT): -The Pt continues to feel like he is constantly SOB and is asking to be put on Oxygen STATION BAGGAGE AGENT -The Pt was given a list of labs to complete and once done then the Pt will be scheduled appointment with his Pipe Threading Machine Operator -The Pt and the Pipe Threading Machine Operator will decide together if the pt needs to be on O2 STATION BAGGAGE AGENT or not 08/18/2021 Pulmonary Note: Assessment: Mr. [...] ways in which he can request an full time staff interpreter over the phone and I am [...] complaints are out of proportion to seemingly xwfp-vh-[id number] asthma and his dyspnea is likely multifactorial. [...] largely have not yet been completed. Mr. Bharwdaj is feeling exasperated due to his language barrier and states that many offices do not have bilingual staff and he feels that it is too difficult to make appointments and understand his care. We reviewed ways in which he can request an full time staff interpreter over the phone and I am [...] complaints are out of proportion to seemingly ffpg-ix-qckfpidl asthma and his dyspnea is likely multifactorial. [...] documentation in collaboration with Dr. Deep Yo. [facility] Quality Initiatives: Tobacco counseling: Patient [...] allergies spent 20 mins with Pt using Samoan Interpretor 1674 Assessment & Plan (11/14/2020 11:15 [...] years for colon cancer screening purposes. Used Samoan interpretor 8245 Assessment & Plan (06/16/2021 10:23 [...] years for colon cancer screening purposes. Used Samoan interpretor 8245 Assessment & Plan (09/13/2020 7:30 [...] years for colon cancer screening purposes. Used Samoan interpretor 3293 Assessment & Plan (06/24/2020 4:13 PM EST): Pt was informed of the following message and told to call and was asked to call to make a colonoscopy appointment 06/03/20 12:29 PM Message from [facility] at [address] [place] [address] Called patient to cancel pre colon appointment, patient did not answer and there was no voicemail set up. Attempted to call patient x2 in a row and no answer either time. Patient does not need pre colon appointment, only needs to schedule Colonoscopy. No [employer] message sent because at the time of the call when scheduling the pre colon appointment patient stated he does not know how to use the [employer] application. Pre colon appointment cancelled. Assessment & [...] [facility] and was told to return [...] PATHOLOGY REPORT Patient: DARREL BHARDWAJ MR #: [id number] ([id number]) Submitted by: Hedy Hameed MD STOMACH, BIOPSY [...] RT talked with Pt Called patient with Samoan Interp. Nancy #[id number]. Patient said that he has an old ResMed that he received in [place] He doesn't know his mode or settings. Nor does he know his previous DME Assessment & Plan (09/10/2021 5:40 PM EDT): The Pt has an Sleep Apnea appointment on 09/24/2021 at 4:20 PM with Ryanne Ocasio MD at the Diabetes Center at [address] [place] [address] Assessment & Plan (09/24/2019 3:03 PM EDT): [...] spent 45 mins with Pt with a authorization representative SLEEP STUDY - [facility] - [phone] Assessment & Plan (09/09/2019 3:22 PM EDT): Pt typically sleep 2.5 hours a night, Pt still has to return his sleep apnea machine to [place] before a sleep apnea clinic in [place] will talk to him, Pt has a BMI of 40.4 and PCP will put a referral in for sleep apnea for Pt today, spent 35 mins with Pt with a authorization representative Diabetic foot (HC Code) 02/07/2019 Assessment & Plan (06/24/2022 9:27 AM EST): The Pt continues to deal with bilateral foot pain and wears a pair of Diabetic shoes with specification ordered by his Sole Seamer Doctor Assessment & Plan (05/31/2021 2:00 PM EST): The Pt continues to deal with bilateral foot pain and needs to get a pair of Diabetic shoes with specification ordered by his Sole Seamer Doctor and will increase Gabapentin from 400 mg PO BID to 800 PO BID Assessment & Plan (01/04/2021 10:02 AM EDT): - recently seen in mid-December by Podiatry- note reviewed Assessment & Plan (10/14/2020 9:29 AM EDT): The Pt continues to deal with bilateral foot pain and needs to get a pair of Diabetic shoes with specification ordered by his Sole Seamer Doctor see below: 08/26/2020 Podiatry Note: Bilateral [...] Also using his neuropathic compounding formula from [employer] as an adjunctive therapy and likes it [...] is working with his Diabetic Specialist at [facility] and has an appointment next week, will increase his Gababentin to 800 mg PO TID and assess effectiveness in one month Assessment & Plan (02/07/2019 6:48 AM EDT): Pt needs a Podiatry appointment due to toe nails need to be cut and Pt needs establish care with a Sole Seamer for his annual diabetic foot care Diabetic eye exam (HC Code) 02/07/2019 Assessment & Plan (06/24/2022 9:29 AM EST): The Pt stated today that he saw his Eye Doctor, [facility] Assessment & Plan (09/18/2020 6:10 PM EDT): Pt has complaints of vision changes and he blew a blood vessel on his sclera, 3 years ago the Pt would see his Retina Doctor who did a lazer every 6 month, Pt needs a retinal eye referral 09/18/2020 Jeovanny Lynn: I put a referral in for the Pt and lately the [facility] has not been given dates for [...] doctor per. Patient can be reached at [phone]. Ms. Rosales can be reached at the same number [phone]. Thank you Deep Assessment & Plan (05/28/2020 2:38 PM EST): Used Interpretor 0938, Pt is asking for an Diabetic Eye [...] 2019, the Pt needs to call the [facility] [address] [place] [phone] Assessment & Plan (10/14/2020 2:13 PM EDT): [...] (01/04/2019 4:02 PM EDT): Pt needs a Samoan speaking Nurse to help him manage his [...] medications -He has been following with the [facility] and reports taking all of [...] billing issues. He also was supposed to picking crew supervisor a Dexa scanner/sensor, but he was unable [...] (DEXCOM G6 SENSOR) device and scanner Asked Media Director to schedule a 1/2 hour Nurse visit [...] 200-300 average, checks ACHS -Pt has his [facility] appt on 04/21/2022 at 11:30 AM [...] Pt will continues to go to his [facility] appointments to review his Dexcom G6 numbers and make appropriate medication changes -If all that happens then the Pt can also scan before each meal, switch from taking 30 units of prandial insulin to start a Sliding Scale -Will leave note with Pt's Talent Director that the Pt needs to have Provider use a Sole Scraper due to his poor Sinhala skills -The Pt has received the Dexcom G6 powerhouse electrician apprentice and scanner but still does not know [...] Pt will continues to go to his [facility] appointments to review his Dexcom G6 [...] 2.Novolog 30 before meals + supplementary sliding [id number]-->4u, 200-249-->6u, 250-299-->8u, 300-349-->10u, >350-->12u 3.continue with trulicity 4.5 mg weekly, jardiance 25 mg daily and metformin 1000 mg bid 4.contact us in 1 week to report BG 5.Check BS 4X/day. Keep organized log and bring it next time. Call [facility] for use of [...] Neuropathy: yes Recommendations: #Diabetes: 1. Continue with [id number] 190u bid 2.Novolog 30 before meals + supplementary sliding scale 150-199--> 4 units 200-249--> 6 units 250-299--> 8 units 300-349--> 10units >350--> 12 3.continue with trulicity 4.5 mg weekly, jardiance 25 mg daily and metformin 1000 mg bid 4.contact us in 1 week to report BG 5.Check BS 4X/day. Keep organized log and bring it next time. Call [facility] for use of [...] year and Pt not wanting to see [facility] or [facility] Diabetic Specialist -Will have to set [...] the Bariatric Doctor for weight loss -Used Sole Scraper # [id number] -Pt wished he could get his diabetic care restarted at the [facility] -Pt does not want to go to [facility] Diabetic Clinic or the [facility] due to not feeling comfortable [...] Pt needs to be rescheduled with our [facility] Diabetic Clinic with Zena Hines PA, the Pt did not like dealing with [facility] due to not feeling comfortable with the [facility] Providers and has had missed multiple appointments The Pt continues to deal with an elevated A1C, Pt wished he could get his diabetic care restarted at the [facility], will refer today Results for DARREL BHARDWAJ [...] MD sent at 09/30/2021 Regarding: RE: reschedule business management specialist appointment I think this is his 3rd [...] Ocasio MD at the Diabetes Center at [address] [place] [address], Pt wished he could get his diabetic care restarted at the [facility], Pt advised to go [...] LDL 90 01/25/2021 MALCRR 3,278 (H) 09/16/2019 Outpatient/RADIOLOGIC TECHNOLOGY INSTRUCTOR meds BLOOD GLUCOSE METER (ONETOUCH VERIO FLEX [...] 1000 mg tablet - continues to see [facility] - recent finger stick readings 350, no symptoms of hyperglycemia - discussed with patient taking medications as prescribed as well as changing diet - recommended to reduce carb intake and simple carbs throughout the day and night and see if fasting glucose improved in morning - plans to see [facility] soon Assessment & Plan (04/23/2021 10:36 AM EST): The Pt continues to work with his [facility] Diabetic Specialist and stated that his Finger sticks range between 98-160, Pt needs to get additional labs to assess kidney fx and his diabetes Assessment & Plan (01/08/2021 1:21 PM EDT): The Pt continues to deal with elevated A1C and sees his Talent Director on a regular basis Results for DARREL [...] and has a f/u appointment with his Talent Director on 09/29/2020 08/27/2020 Endocrine referral: Assessment and [...] his blood sugars. Could also consider insulin software build engineer like pioglitazone at low dose. Discussed treatment [...] Krystle Santos RN Spoke with pharmacist at [facility], states if PCP will send scripts for [...] between 7 or 8 and talked through authorization representative [id number] that the Pt has to have [...] to 110 and send message to his gold beater Isha Carmen APRN with [facility] Assessment & Plan (05/28/2020 3:01 [...] to 105 and send message to his gold beater Isha Carmen APRN with [facility] Assessment & Plan (04/08/2020 6:17 [...] the care of Isha Carmen APRN with [facility] and was last prescribed insulin [...] - 64 pg/mL 64.2 74 (H) Vitamin [id number] Latest Ref Range: 20 - 50 ng/mL [...] Diabetic care will be transferred over to [facility] and he has the following appointment: 03/27/2020 11:00 AM with Julia Ceja RD at the Diabetes Center at [address] [facility] Assessment & Plan (02/14/2020 4:56 PM EDT): Patient called and stated he's a diabetic and was advised to speak with his pcp Deep if anything was wrong. He stated he woke up with a small cut in right foot on the small toe. I did offer the CC but stated he would like to speak with his pcp first [phone] (armenian speaking) Assessment & Plan (11/13/2019 7:10 PM [...] Pt is currently seeing our Diabetic Specialist STATION BAGGAGE AGENT at [facility], talking with STATION BAGGAGE AGENT on phone the Pt has developed an [...] will continue to see Diabetic Clinic at [facility] for additional medication adjustments and will [...] will continue to see Diabetic Clinic at [facility] and re-evaluate Pt care in one [...] 6-8 weeks to be seen by his grocery store courtesy clerk Dr. Newberry. Attending Addendum: I have seen [...] that he is on this. I contacted [facility] pharmacy and they reported that on 06/28 [...] and LVM requesting a call back. ID [phone] assisted call. Of note, appears patient was [...] Dr. Newberry and should be visible in [employer]. We would like you to please call [...] pain and dyspnea # h/o CVA (NOT [place] -- historical charting error) # Dyslipidemia with [...] pain and dyspnea # h/o CVA (NOT [place] -- historical charting error) # Dyslipidemia with [...] stable, recheck in [facility] this week Assessment & Plan (01/04/2021 9:26 [...] in one week to manage HTN, used resident physician in radiology 2499, Pt denies experiencing any pain or tightness [...] EST): When the Pt was admitted to [facility] they had stopped his Lisinopril [...] medication up weekly, spent 35 min with Sole Scraper 168, will f/u with Pt in one month [...] needs to get all his meds in armenian and has an appointment on 02/24/2020 02/24/2020 3:40 PM Provider Deep Pruitt APRN [facility] Assessment & Plan (02/22/2020 5:19 AM EDT): I see that Losartan help protect the kidneys from damage due to diabetes, I will discontinue the atenolol and start him at Losartan 25 mg and slowly titrate him up and the Pt needs to get all his meds in armenian and has an appointment on 02/24/2020 02/24/2020 3:40 PM Provider Deep Pruitt APRN [facility] SERVICES Assessment & Plan (03/16/2019 6:10 [...] following reasons: The patient has a prior [place] or stroke diagnosis Assessment & Plan (12/18/2018 [...] to call Pt with results seen below (Samoan only please) -And let him know that his UTI results were negative and there is no reason for antibiotics 09/08/2021 PCP Note: Pt c/o burning with urination for the past 2 day, will ask Pt to do a urine culture before prescribing an Antibiotic medication used Samoan interpretor 3902 09/10/2021 PCP Addendum Note: The Pt has [...] [facility] and was told to return [...] [facility] one year ago and was [...] AM EDT): 01/02/2020 the 49 yo male (Samoan speaking only) with a BMI of 39.6, last A1C Dec 2019 increased to 13.7, in 2018 the Pt had a right sided stroke (minimal residual speech and walking issues) and is working with our Diabetic STATION BAGGAGE AGENT Specialist to bring his sugars down, Pt [...] Plan (11/13/2019 7:08 PM EDT): Used a Sole Scraper [id number] for the entire 25 min visit, Pt [...] with Pt in 1 weeks, used a Sole Scraper 4641 throughout the visit -10/23/2019 the Pt again [...] with Pt in 2 weeks, used a Sole Scraper Propio through out the visit Assessment & [...] (H) -Pt will be referred to the [facility] Wine Merchant to assess if his current diet is [...] Perla Rice RN message to Deep Pruitt STATION BAGGAGE AGENT Call was returned to patient and his [...] input from his primary care physician and weed sprayer would be helpful. Considerations would include: stopping amlodipine, increasing diuretics, re-assessing labs for kidney function (e.g. is proteinuria worsening), and dietary interventions. Also counseled patient that weight loss would likely be helpful. I think his box covering machine operator can be helpful with managing his midfoot [...] input from his primary care physician and weed sprayer would be helpful. Considerations would include: stopping amlodipine, increasing diuretics, re-assessing labs for kidney function (e.g. is proteinuria worsening), and dietary interventions. Also counseled patient that weight loss would likely be helpful. I think his box covering machine operator can be helpful with managing his midfoot [...] plan for regular follow up with your box covering machine operator, primary care physician, and weed sprayer Follow-up: as needed with me Other interventions: recommend keeping the legs elevated when sitting (try to get feet above the level of the heart to get the fluid to come down; also recommend new pair of custom graduated compression stockings - wear daily - please call [facility] for an appointment to be measured for the new stockings so they fit you well. [facility] [address] [place] [id number] , PCP Notes: Will stop Amlodipine 5 mg PO QD and start Pt on Spirolactone 25 mg PO QD and assess in 2 weeks if Spirlactatone needs to be increased to 25 mg BID Will fax to [employer] order for Compression stocking and put contact info in AVS for the Pt to call and arrange for sizing CCM: 10 minutes 12/29/2020 Deep Pruitt APRN Assessment & Plan (06/24/2020 3:44 PM EST): 06/13/2020 the Pt had 2 pairs of Knee high compression stockings ordered and sent to [facility] and the Pt has to call [facility] so he can be measured and then pick them up when they arrive Assessment & Plan (06/13/2020 7:10 AM EST): Pt continues to deal with bilateral lower extremity edema will order Compression sleeves today from [facility] today, Put on lower legs during the day and take off at night, and wash and let dry and put on 2nd pair on the following day for Edema, lower extremity R60.0, will send to [facility] Assessment & Plan (05/26/2020 5:58 PM [...] in 2 days at his next appointment [facility] #[id number] CCM: 20 minutes 05/26/2020 Deep Pruitt APRN [...] Ambulatory Surgical Specialties - Vascular [facility] [address] [place] [address] Assessment & Plan (01/30/2020 4:18 PM EDT): [...] EST): When the Pt was admitted [facility] they had stopped his Lisinopril [...] needs to get all his meds in armenian, sued authorization representative Mikhail Lore Administrative encounter 02/07/201909/2020 Assessment & Plan (02/07/2019 7:01 AM EDT): The Pt asked for a [place] State form Medical Report for Person who needs care , with Goal to have the Pt'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 More than 4 times per year [...] your living situation today? I have a [facility] place to live 05/19/2022 [...] Done Comments Dental X-Ray: Full Mouth 1970 RSV Immunization (1 - Risk 50-74 years 1-dose series) 2020 Shingles vaccine (Shingrix) (1 of 2 - Shingrix (RZV) 2 Dose Standard Series) 2020 Diabetic eye exam 07/01/2020 07/01/2019 Dental Oral Exam 01/02/2022 07/05/2021, 05/2018, 02/05/2019 Dental Prophylaxis 02/10/2022 08/10/2021 Dental X-Ray: Bitewings 07/05/2022 07/05/19, 02/05/2019, 02/05/2019 PSA 09/09/2022 09/09/2021, 050 09/2021, 09/16/2019, Additional history exists Hemoglobin A1C 09/20/2022 06/23/2022, 03/09, 12/22/2021, Additional history exists Urine Microalbumin 02/15/2023 02/15/2022, 0 09/09/2021, 09/09/2021, Additional history exists LDL monitoring 03/14/2023 03/14/2022, 110 11/2021, 09/09/2021, Additional history exists Diabetic foot exam 04/28/2023 04/28/2022, 0 07/14/2021, 08/26/2020, Additional history exists Influenza vaccine 12/06/2024 02/01/2024, , 03/24/2022, Additional history exists Covid-19 vaccine series (2024- season) 2025 02/01/2024, 04/14/2021, 08/28/2020, Additional history exists Colon cancer screening, Colonoscopy 09/03/2030 09/03/2020, 09/03/2020, 03/20/2012 Tetanus adult (Td q 10,TDAP once) 03/24/2032 03/24/2022, 10/05/2016 Hepatitis B vaccine series Completed 04/05, 10/05/2016, 08/17/2016 Hepatitis C screening Completed 02/06/2020, 019 Pneumococcal Vaccine (2 - 49 years) Discontinued 03/24/2022, 01/21/2021 Pneumococcal Vaccine (50+ years) Completed 03/24/2022, 01/21/2021 HIV screening Completed 10/07/2024, 12/10/2018 Meningococcal B [...] 9:01 AM EDT Screening for prostate cancer NC PROPHYLAXIS - ADULT Routine 08/10/2021 10:45 AM EDT Encounter for dental exam and cleaning w/o abnormal findings NC BITEWINGS - FOUR RADIOGRAPHC IMAGES Routine 07/05/2021 10:30 AM EST Encounter for dental examination NC PERIODIC ORAL EVALUATION EST PT Routine 07/05/2021 10:30 AM EST Encounter for dental examination Oral frictional keratosis Partially edentulous mandible, unspecified edentulism class Secondary dental caries associated with failed or defective dental hoahaoism Dental caries on smooth surface penetrating into [...] Results * (ABNORMAL) POCT HgbA1c, total CPT: 54065 (06/23/2022 4:21 PM EST) Hemoglobin A1C, POC 10.6 4.0 - 6.0 % [facility] Test Lot Number [id number] [facility] Test Lot Exp Date 09/18/22 Date Format: MM/DD/YYYY [facility] Blood specimen (specimen) 06/23/2022 4:21 PM EST Deep Pruitt APRN POINT OF CARE TEST ORDERABL ES Final Result Performing Organization Address [facility] Co de Phone Number [facility] * (ABNORMAL) LDL cholesterol, direct (03/14/2022 [...] Comment Performing Lab: Site ID: [id number] Name: [facility] [employer] Address: [address] [place] [address], [place] [address] Director: Yadira Bowman M.D. Deep Pruitt APRN LAB BLOOD ORDERABLES Final Result Performing Organization Address [facility]/ZIP Co de Phone Number [facility] [address] [place] [address] * (ABNORMAL) Albumin/creatinine panel, urine, random (02/15/2022 2:02 PM EDT) Albumin, Urine, Random 1,885.3 Reference Range Not Established mg/L 02/15/2022 3:42 PM EDT [facility] DEPARTMENT OF LABORATORY MEDICINE Creatinine, Urine, Random 60 Reference Range Not Established mg/dL 02/15/2022 3:42 PM EDT [facility] DEPARTMENT OF LABORATORY MEDICINE Albumin/Creatin ine Ratio, Urine, Random 3,168.6(H ) <30.0 mg/g Cr 02/15/2022 3:42 PM EDT [facility] DEPARTMENT OF LABORATORY MEDICINE Comment: Moderately increased albuminuria (formerly microalbuminuria): 30-300 mg/g Cr Significantly increased albuminuria (overt albuminuria): >300 mg/g Cr Urine Collection / Unknown 02/15/2022 2:02 PM EDT 02/15/2022 2:59 PM EDT Yue Dominguez EXPERIMENTAL MACHINING LAB MANAGER URINE ORDERABLES Final Res ult [facility] DEPARTMENT OF LABORATORY MEDICINE [address] [place] [address] * PSA, total (Q) (09/09/2021 9:01 AM EDT) Pathologist [facility] Prostate Specific Antigen Total 0.44 < OR [...] Comment Performing Lab: Site ID: [id number] Name: [facility] Address: [address] [place] [address], [address] [place] [address] Director: Yadira Bowman M.D. us Deep Pruitt APRN LAB BLOOD ORDERABLES Final Result [facility] [address] [place] [address], [facility] * Colonoscopy (09/03/2020 10:16 AM EDT) Colonoscopy [facility] End[facility] Patient Name: Darrel Bhardwaj Procedure Date: 09/03/2020 10:16 AM Date of : 1970 Age: 50 Admit Type: Outpatient Gender: Male CSN #: [id number] Note Status: Finalized Procedure Date no Time: [...] bowel preparation was evaluated using the BBPS ([place] Bowel Preparation Scale) with scores of: Right [...] for surveillance. Procedure Code(s): --- Professional --- 51722, Colonoscopy, flexible; with biopsy, single or multiple Diagnosis Code(s): --- Professional --- Z86.010, Personal history of colonic polyps D12.0, Benign neoplasm of cecum CPT copyright 2018 [employer]. All rights reserved. The codes documented in this report are preliminary and upon hospital coder review may be revised to meet [...] In: 10:41:36 AM Scope Out: 10:58:33 AM [facility] 09/03/2020 10:1 6 AM EDT us Provider Not In System GI PROCEDURE ORDERABLES F inal Result [facility] * Hepatitis C Ab with reflex to HCV PCR (02/06/2020 7:18 AM EDT) Hepatitis C Antibody Negative Negative 02/06/2020 4:21 PM EDT [facility] DEPARTMENT OF LABORATORY MEDICINE Comment:A [...] Jordyn Hills APRN LAB BLOOD ORDERABLES Fauzia guzman Result [facility] DEPARTMENT OF LABORATORY MEDICINE [address] [place] [address], [facility] [phone] * HIV 1/2 ag/ab, w/reflexes (Q) (12/10/2018 10:32 AM EDT) [facility] HIV Ag/Ab, 4th Generation NON-REACT NICKIE NON-REACT [...] purpose. For additional information please refer to http://education.[employer] ([employer])/faq/TVZ771 (This link is being provided for informational/ educational purposes only.) The performance of this assay has not been clinically validated in patients less than 2 years old. Blood 12/10/2018 10:3 2 AM EDT 12/10/2018 10:32 AM EDT Carlos Eduardo Joyner MD LAB BLOOD ORDERABLES Fi nal Result [facility] [address] [place] [address] from Last 3 Months or Most Recently Relevant to Health Maintenance Insurance [place] Advance Directives * Full ACLS (Latest Code Status on File) Date Activated Date Inactivated Comments 02/04/2020 9:46 PM 02/07/2020 8:23 PM Question Answer Comments With Whom was the Code Status Discussed? Patient Care Teams Shot Tube Machine Tender Relationship Specialty Start Date End Date Deep Pruitt APRN PCP - General 05/22/19
--- OUTSIDE RECORDS SUMMARY | 2025-03-18 12:53 | XMS_ITS | Encounter Summary ---
Author Organization [facility] [employer] [facility] Address [address] [place] [phone] Care Team Providers Care Research Assistant Member Name Role Phone Deep Pruitt APRN Primary Care Provider Encounter Details Date Type Department Care Team (Latest Contact Info) Description 09/13/2021 Transcribed Orders [facility] Specimens [address] [place] [address] Deep Pruitt APRN [address] [place] [address] Encounter for routine screening for [...] Total Score 5 09/14/[address] [facility] Health - Occupational Stress Questionnaire Answer Date [...] ng/mL 09/13/2021 1:44 PM EDT [facility] DEPARTMENT OF LABORATORY MEDICINE Prostate Specific Antigen, Free (YH) 0.28 0.00 - 3.90 ng/mL 09/13/2021 1:44 PM EDT [facility] DEPARTMENT OF LABORATORY MEDICINE Comment:Prostate Specific An tigen, Free Percentage can not be calculated. PSA, Total value out of appropriate range. Blood Venipuncture / Unknown 09/09/2021 12:05 PM EDT 09/13/2021 10:48 AM EDT Narrative [facility] DEPARTMENT OF LABORATORY MEDICINE - 09/13/2021 1:44 [...] LAB BLOOD ORDERABLES Final Result [facility] DEPARTMENT OF LABORATORY MEDICINE [address] [place] [address] documented in this encounter Visit Diagnoses Diagnosis [...] documented as of this encounter Care Teams Research Assistant Member Relationship Specialty Start Date End Date Deep Pruitt APRN PCP - General 05/22/19 documented as of this encounter
--- OUTSIDE RECORDS SUMMARY | 2025-03-18 12:53 | XMS_ITS | Encounter Summary ---
Author Organization [facility] Address [address] [place] [address] Care Team Providers Care Meter Inspector Name Role Phone Deep Pruitt APRN Primary Care Provider [phone] Encounter Details Date Type Department Care Team ([facility] st Contact Info) Description 10/26/2020 Scanned Document [facility] [address] [place], [place] [id number] Deep Pruitt APRN [address] [place] [address] Social History Tobacco Use Types [...] Answer Date Recorded PHQ-2 Score 2 07/07/2020 [facility] of Occupat ional Health - Occupational Stress [...] documented as of this encounter Care Teams Meter Inspector Relationship Specialty Start Date End Date Deep Pruitt APRN PCP - General 05/22/19 documented as of this encounter
--- OUTSIDE RECORDS SUMMARY | 2025-03-18 12:53 | XMS_ITS | Encounter Summary ---
Author Organization [facility] Address [address] [place] [address] Care Team Providers Care Funds Development Director Name Role Phone Deep Pruitt APRN Primary Care Provider [phone] Reason for Visit * Reason Comments Medication Refill Encounter Details Date Type Department Care Team ([facility] st Contact Info) Description 09/16/2021 Refill [facility] [address] [place] [address] Deep Pruitt APRN [address] [place] [phone] Medication Refill Social History Tobacco Use [...] documented as of this encounter Care Teams Funds Development Director Relationship Specialty Start Date End Date Deep Pruitt APRN PCP - General 05/22/19 documented as of this encounter
--- OUTSIDE RECORDS SUMMARY | 2025-03-18 12:53 | XMS_ITS | Encounter Summary ---
Author Organization [facility] [employer] [facility] Address [address] [place] [phone] Care Team Providers Care Dial Buffer Name Role Phone Romelia Pruittian Niko LOPEZ Primary Care Provider Encounter Details Date Type Department Care Team (Latest Contact Info) Description 08/10/2021 Transcribed Orders [facility] [address] [place] [address] Taylor Malagon, WELT POCKET MACHINE OPERATOR [address] [place] [address] Stage 3a chronic kidney disease [...] Date Recorded PHQ-2 Total Score 4 07/13/2021 [facility] - Occupational Stress Questionnaire Answer [...] as of this encounter Results * Phosphorus ([facility] ) (08/10/2021 9:40 AM EDT) Phosphorus 3.5 2.2 - 4.5 mg/dL 08/10/2021 10:26 AM EDT [facility] DEPARTMENT OF LABORATORY MEDICINE Blood Venipuncture / Unknown 08/10/2021 9:40 AM EDT 08/10/2021 9:56 AM EDT Taylor Malagon APRN LAB BLOOD ORDERABLES Fauzia guzman Result [facility] DEPARTMENT OF LABORATORY MEDICINE [address] [place] [address] documented in this encounter Visit Diagnoses Diagnosis Stage 3a chronic kidney disease (CKD) (HC Code) (HC CODE)- Primary documented in this encounter Additional Health Concerns Infection Onset Date Last Indicated Resolved Time COVID-19 09/29/2021 09/29/2021 10/19/2021 7:19 PM EDT Assessment Noted Time PHQ-9 Depression Total Score: 11 022 2:28 PM EST documented as of this encounter Care Teams Dial Buffer Relationship Specialty Start Date End Date Deep Pruitt APRN PCP - General 05/22/19 documented as of this encounter
--- OUTSIDE RECORDS SUMMARY | 2025-03-18 12:53 | XMS_ITS | Encounter Summary ---
Author Organization [facility] Address [address] [place] [address] Care Team Providers Care Test Clerk Name Role Phone Romelia Pruittian Niko LOPEZ Primary Care Provider Encounter Details Date Type Department Care Team (Late st Contact Info) Description 09/08/2021 Scanned Document [facility] [address] [place] [address] External, Provider Social History Tobacco Use Types [...] Date Recorded PHQ-2 Total Score 2 09/08/2021 [facility] of Occupat [...] as of this encounter Care Teams Test Clerk Relationship Specialty Start Date End Date Deep Pruitt APRN PCP - General 05/22/19 documented as of this encounter
--- OUTSIDE RECORDS SUMMARY | 2025-03-18 12:53 | XMS_ITS | Encounter Summary ---
Author Organization [facility] Address [address] [place] [address] Care Team Providers Care Business Development Intern Name Role Phone Deep Pruitt APRN Primary Care Provider [phone] Reason for Visit * Reason Comments Medication Refill Encounter Details Date Type Department Care Team ([facility] st Contact Info) Description 09/17/2020 Refill [facility] [address] [place] [address] Deep Pruitt APRN [address] [place] [phone] Medication Refill Social History Tobacco Use [...] as of this encounter Care Teams Business Development Intern Relationship Specialty Start Date End Date Deep Pruitt APRN PCP - General 05/22/19 documented as of this encounter
--- OUTSIDE RECORDS SUMMARY | 2025-03-18 12:53 | XMS_ITS | Encounter Summary ---
Author Organization [facility] Address [address] [place] [address] Care Team Providers Care Inside Sales Trainer Name Role Phone Romelia Pruittian Niko LOPEZ Primary Care Provider Encounter Details Date Type Department Care Team (Late st Contact Info) Description 09/06/2021 Scanned Document [facility] [address] [place] [address] External, Provider Social History Tobacco Use Types [...] Date Recorded PHQ-2 Total Score 2 09/08/2021 [facility] of Occupat ional Health [...] of this encounter Care Teams Inside Sales Trainer Relationship Specialty Start Date End Date Deep Pruitt APRN PCP - General 05/22/19 documented as of this encounter
--- OUTSIDE RECORDS SUMMARY | 2025-03-18 12:53 | XMS_ITS | Encounter Summary ---
Author Organization [facility] Address [address] [place] [address] Care Team Providers Care Gem Carver Name Role Phone Deep Pruitt APRN Primary Care Provider Reason for Visit * Reason Comments Medication Refill Encounter Details Date Type Department Care Team ([facility] st Contact Info) Description 10/20/2020 Refill [facility] [address] [place], [place] [phone] Deep Pruitt APRN [address] [place] [address] Medication Refill Social History Tobacco [...] documented as of this encounter Care Teams Gem Carver Relationship Specialty Start Date End Date Deep Pruitt APRN PCP - General 05/22/19 documented as of this encounter
--- OUTSIDE RECORDS SUMMARY | 2025-03-18 12:53 | XMS_ITS | Encounter Summary ---
Author Organization [facility] Address [address] [place] [address] Care Team Providers Care Manufacturing Mechanic Name Role Phone Deep Pruitt APRN Primary Care Provider Encounter Details Date Type Department Care Team ([facility] st Contact Info) Description 06/21/2022 Scanned Document [facility] [address] [place], [place] [phone] Deep Pruitt APRN [address] [place] [address] Social History Tobacco Use Types [...] your living situation today? [facility] 05/19/2022 Sex [...] as of this encounter Care Teams Manufacturing Mechanic Relationship Specialty Start Date End Date Deep Pruitt APRN PCP - General 05/22/19 documented as of this encounter
== END ==
LOC: HO.CARD 10:48
PROVIDERS: PCP Student in an Organized Health Care Education/Training Program; Visit Provider Internal Medicine Nephrology
DX: Z13.89 Encounter for screening for other disorder (principal)
CPT/HCPCS: J1250

== ENCOUNTER 2025-04-07 11:23 | Outpatient (AMB) | payer MEDICAID, SELFPAY ==
--- NOTE | 2025-04-07 11:33 | MHC.OFFVIS ---
Vital Signs 04/07/25 11:36 Height 5 ft 9 in Weight 235 lb 14.314 oz BMI 34.8 BP not taken reason Patient Refused Intake Visit Reasons: Follow up last seen 07/2023 Intake Note: Darrel presents in the office as a follow up. CC: States that he is having pains in his legs for 3 days - he states that it is going to the other side but denies any GI symptoms. Extruder Operator Helper Required: Yes Extruder Operator Helper Name: [id number] Nastia Allergies Penicillins (PENICILLINS) Allergy (Intermediate, Verified 04/07/25 11:38) RASH, DIFFICULTY BREATHING HPI HPI Follow up last seen 07/2023: Details: 54 yr old m with hx of REGI, HTN< CKD, DM, obesity who I am seeing for f/u RECAP: I saw him initially 07/29 He had fullness sensation in LUQ Has had this for >1 month at the time constant, very light can be worse with fatty foods--has known gallstones He is on insulin, was on trulicity but stopped due to kidney problems denies nausea or vomiting he had colonoscopy maybe 4 yrs ago, apparently v large denies constipation on v high doses of humulin TID US: 07/10/23--steatosis, gallstone, Labs: mild raised lipase, nml LFT except mild raised alk phos Plan was for egd, and colo--but not done INTERIM: he has right leg discomfort for 3 d over the thigh --anterior no abdominal pain now no n/v no rectal bleeding he does have constipation some times he goes for dialysis EXAM: GENERAL: The patient is obese, short neck VITAL SIGNS:see workflow HEENT: Nonicteric sclerae, PERRLA, EOMI. Oropharynx clear. Moist mucous membranes. Conjunctivae appear well perfused. No thyroid mass. CHEST: Chest wall is nontender. HEART: Regular rate and rhythm without murmurs. LUNGS: Clear to auscultation bilaterally. ABDOMEN: Soft, positive bowel sounds, mildly tender epigastrium, no organomegaly.no flank tenderness SKIN: No rash, no excessive bruising, petechiae, or purpura. NEUROLOGIC: Cranial nerves II-XII intact without motor/sensory deficit. 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 DM--a1c has been high 2/ hx of colon polyps 3/ ULLOA--hep C neg PLAN: 1/ EGD and colo, pre op assessment, bariatric bed, higher risk due to medical issues and obesity, short neck, dialysis 2/ will send golyte and needs to half his inuslin doses dsy before, 3/ increase jami to 300 mg and refer pain mx [facility] Medical History HTN (hypertension) Leukocytosis Memory loss Obesity Idiopathic gout of multiple sites GERD (gastroesophageal reflux disease) Hypertensive chronic kidney disease Secondary hyperparathyroidism, renal Sleep apnea Type 2 diabetes mellitus Schizoaffective disorder Chronic pain syndrome Diabetic polyneuropathy Gout Surgical History History of esophagogastroduodenoscopy (EGD) H/O colonoscopy Family History Father Cancer Diabetes Mother Cancer Diabetes Colon cancer Family/Other Cancer Diabetes Social History Household Members: Spouse Housing: House Are you a primary healthcare consulting manager to a significant other at home: No Do you presently have visiting nurse or other home services: No Alcohol intake: never Patient Tobacco Use Status: Never used Tobacco service: No Physical Exam Vital Signs: BMI result Body Mass Index 34.8 Assessment & Plan Assessment & Plan (1) Femoral neuropathy: Code(s): G57.20 - Lesion of femoral nerve, unspecified lower limb Category: Medical Plan: as above Orders: Orders PT Evaluation and Treatment Today G57.20 - Lesion of femoral nerve, unspecified lower limb Referrals Pain Management Referral G57.20 - Lesion of femoral nerve, unspecified lower limb Medications: New sodium,potassium,mag sulfates 17.5-3.13-1.6 gram (Suprep Bowel Prep Kit) DILUTE; drink 1/2 at 6-8 pm and half at 11 PM- 1AM 354 mL 0RF gabapentin 300 mg PO BEDTIME 30 caps 1RF Coding Level of Care Code Est Pt Level 4 (15244) Diagnoses Femoral neuropathy G57.20
[2025-04-07 11:36] VITALS: BMI 34.8
--- OUTSIDE RECORDS SUMMARY | 2025-04-07 14:59 | XMS_ITS | Encounter Summary ---
Author Organization [facility] Address [address] [place] [address] Care Team Providers Care Space Buyer Name Role Phone Deep Pruitt APRN Primary Care Provider [phone] Reason for Visit * Reason Comments Medication Refill Encounter Details Date Type Department Care Team ([facility] st Contact Info) Description 06/19/2020 Refill [facility] [address] [place] [address] Deep Pruitt APRN [address] [place] [phone] Medication Refill Social History Tobacco Use [...] Answer Date Recorded PHQ-2 Score 0 03/13/2020 [facility] [place] of Occupat ional Health - Occupational Stress [...] as of this encounter Care Teams Space Buyer Relationship Specialty Start Date End Date Deep Pruitt APRN PCP - General 05/22/19 documented as of this encounter
--- OUTSIDE RECORDS SUMMARY | 2025-04-07 14:59 | XMS_ITS | Encounter Summary ---
Author Organization [facility] Address [address] [place] [address] Care Team Providers Care Questioned Documents Examiner Name Role Phone Deep Pruitt APRN Primary Care Provider [phone] Reason for Visit * Reason Comments Other Encounter Details Date Type Department Care Team ([facility] Contact Info) Description 05/19/2020 Telephone [facility] [address] [place] [address] Deep Pruitt APRN [address] [place] [address] Other Social History Tobacco Use [...] Answer Date Recorded PHQ-2 Score 0 03/13/2020 [facility] [place] of Occupat ional Health - Occupational Stress [...] to his gout, call back number is [phone] documented in this encounter Plan of Treatment [...] documented as of this encounter Care Teams Questioned Documents Examiner Relationship Specialty Start Date End Date Deep Pruitt APRN PCP - General 05/22/19 documented as of this encounter
--- OUTSIDE RECORDS SUMMARY | 2025-04-07 14:59 | XMS_ITS | Encounter Summary ---
Author Organization [facility] Address [address] [place] [phone] Care Team Providers Care Tipple Tender Name Role Phone Deep Pruitt JOHN Primary Care Provider Reason for Visit * Reason Comments Medication Refill Encounter Details Date Type Department Care Team (Late st Contact Info) Description 07/20/2020 Refill [facility] Podiatry at [address] [place] [phone] Arben Fountain, NOLVIA [address] [place] [address] Medication Refill Social History Tobacco Use [...] documented as of this encounter Care Teams Tipple Tender Relationship Specialty Start Date End Date Deep Pruitt APRN PCP - General 05/22/19 documented as of this encounter
--- OUTSIDE RECORDS SUMMARY | 2025-04-07 14:59 | XMS_ITS | Encounter Summary ---
Author Organization [facility] Address [address] [facility] [address] [place] [address] Care Team Providers Care Tanker Service Attendant Name Role Phone Katrin Santoyo MD Primary Care Pro vider Edison Vieira MD Unavailable [phone] Joe Devi MD Unavailable [phone] Chuy Mcmanus MD Unavailable Sveta Lazaro RN Unavailable [phone] Leslie Kline Unavailable Reason for Visit * Reason Comments Med Refill Encounter Details Date Type Department Care Team (Late st Contact Info) Description 02/11/2024 Refill [facility] [address] [place] [address] Moriah Herbert FNP [address] [place] [address] Chronic radicular lumbar pain Social History Tobacco [...] Care Team (Late st Contact Info) Description 04/08/2025 10:00 AM EST Office Visit [facility] [address] [place] [phone] Katrin Santoyo MD [address] [place] [phone] documented as of this encounter Goals Goal [...] documented as of this encounter Care Teams Tanker Service Attendant Relationship Specialty Start Date End Date Katrin Santoyo MD [address] [place] [address] [place] [address] PCP - General Internal Medicine 12/13/22 Edison Vieira MD [address] [place] [address] Pulmonary Disease 04/07/24 Joe Devi MD [address] [facility] 3rd [place] [address] Gastroenterology 04/07/24 Chuy Mcmanus MD [address] [place] [phone] Bariatrics 09/25/24 Sveta Lazaro, RN [address] [place] [phone] Registered Nurse Family Medicine 11/29/24 Leslie Kline 11/29/24 Carito Roche DNP [address] [facility], [address] [place] [address] Nephrology 04/07/24 [facility] 04/11/24 12/18/24 [facility] 12/14/24 documented as of this encounter
--- OUTSIDE RECORDS SUMMARY | 2025-04-07 14:59 | XMS_ITS | Encounter Summary ---
Author Organization [facility] Address [address] [place] [address] Care Team Providers Care Tetryl Wringer Operator Name Role Phone Deep Pruitt Niko LOPEZ Primary Care Provider Reason for Visit * Reason Comments Medication Refill Encounter Details Date Type Department Care Team (Late st Contact Info) Description 05/06/[address] [id number] Arben Fountain, NOLVIA [address] [place] [address] Medication Refill Social History Tobacco [...] documented as of this encounter Care Teams Tetryl Wringer Operator Relationship Specialty Start Date End Date Deep Pruitt APRN PCP - General 05/22/19 documented as of this encounter
--- OUTSIDE RECORDS SUMMARY | 2025-04-07 14:59 | XMS_ITS | Encounter Summary ---
Author Organization [facility] Address [address] [place] [address] Care Team Providers Care Server Cashier Name Role Phone Deep Pruitt APRN Primary Care Provider Reason for Visit * Reason Comments Forms Encounter Details Date Type Department Care Team ([facility] Contact Info) Description 06/16/2020 Telephone [facility] [address] [place] [address] Deep Pruitt APRN [address] [place] [phone] Forms Social History Tobacco Use Types [...] Answer Date Recorded PHQ-2 Score 0 03/13/2020 [facility] [place] of Occupat ional Health - Occupational Stress [...] update on handicap forms for pt. Call [phone] documented in this encounter Plan of Treatment [...] documented as of this encounter Care Teams Server Cashier Relationship Specialty Start Date End Date Deep Pruitt APRN PCP - General 05/22/19 documented as of this encounter
--- OUTSIDE RECORDS SUMMARY | 2025-04-07 14:59 | XMS_ITS | Encounter Summary ---
Author Organization [facility] Address [address] [place] [address] Care Team Providers Care Roving Court Reporter Name Role Phone Deep Pruitt APRN Primary Care Provider Reason for Visit * Reason Comments Medication Refill Encounter Details Date Type Department Care Team ([facility] st Contact Info) Description 03/19/2022 Refill [facility] [address] [place], [place] [phone] Deep Pruitt, JOHN [address] [place] [address] Medication Refill Social History Tobacco [...]
--- OUTSIDE RECORDS SUMMARY | 2025-04-07 14:59 | XMS_ITS | Encounter Summary ---
Author Organization [facility] Address [address] [place] [address] Care Team Providers Care Lye Machine Operator Name Role Phone Deep Pruitt APRN Primary Care Provider Reason for Visit * Reason Comments Medication Refill Encounter Details Date Type Department Care Team ([facility] st Contact Info) Description 05/27/2020 Telephone [facility] [address] [place] [address] Deep Pruitt APRN [address] [place] [address] Medication Refill Social History Tobacco [...] Date Recorded PHQ-2 Score 0 03/13/2020 [facility] [place] of Occupat ional Health - Occupational Stress [...] medications and request someone calls him at [phone] documented in this encounter Plan of Treatment [...] as of this encounter Care Teams Lye Machine Operator Relationship Specialty Start Date End Date Deep Pruitt APRN PCP - General 05/22/19 documented as of this encounter
--- OUTSIDE RECORDS SUMMARY | 2025-04-07 14:59 | XMS_ITS | Encounter Summary ---
Author Organization [facility] Address [address] [place] [address] Care Team Providers Care Group Reservations Coordinator Name Role Phone Deep Pruitt APRN Primary Care Provider Reason for Visit * Reason Comments Medication Refill Encounter Details Date Type Department Care Team (Late st Contact Info) Description 06/19/2020 Refill [facility] [address] [place], [place] [phone] Janel Cummins APRN [address] [place] [phone] Medication Refill Social History Tobacco Use Types [...] as of this encounter Care Teams Group Reservations Coordinator Relationship Specialty Start Date End Date Deep Pruitt APRN PCP - General 05/22/19 documented as of this encounter
--- OUTSIDE RECORDS SUMMARY | 2025-04-07 14:59 | XMS_ITS | Encounter Summary ---
Author Organization [facility] Address [address] [place] [address] Care Team Providers Care Flower Buncher Or Picker Name Role Phone RussellDeep medina Niko LOPEZ Primary Care Provider Reason for Visit * Reason Comments Medication Refill Encounter Details Date Type Department Care Team ([facility] st Contact Info) Description 07/03/2020 Refill [facility] [address] [facility] [address] [place] [phone] Zena Hines PA [address] [place] [phone] Medication Refill Social History Tobacco Use [...] for Metformin received. Pt was engaging with [facility] and continues with PCP. Unclear [...] documented as of this encounter Care Teams Flower Buncher Or Picker Relationship Specialty Start Date End Date Deep Pruitt APRN PCP - General 05/22/19 documented as of this encounter
--- OUTSIDE RECORDS SUMMARY | 2025-04-07 14:59 | XMS_ITS | Encounter Summary ---
Author Organization [facility] Address [address] [place] [address] Care Team Providers Care Software Design Manager Name Role Phone Deep Pruitt APRN Primary Care Provider Reason for Visit * Reason Comments Medication Refill Encounter Details Date Type Department Care Team ([facility] st Contact Info) Description 07/29/2020 Refill [facility] [address] [place], [place] [phone] Deep Pruitt, JOHN [address] [place] [phone] Medication Refill Social History Tobacco Use [...] Recorded PHQ-2 Score 2 07/07/2020 [facility] of Occupat [...] as of this encounter Care Teams Software Design Manager Relationship Specialty Start Date End Date Deep Pruitt APRN PCP - General 05/22/19 documented as of this encounter
--- OUTSIDE RECORDS SUMMARY | 2025-04-07 14:59 | XMS_ITS | Encounter Summary ---
Author Organization [facility] Address [address] [place] [address] Care Team Providers Care Splunk Architect Name Role Phone Deep Pruitt APRN Primary Care Provider Reason for Visit * Reason Comments Medication Refill Encounter Details Date Type Department Care Team ([facility] st Contact Info) Description 06/19/2020 Refill [facility] [address] [place] [address] Deep Pruitt APRN [address] [place] [phone] Medication Refill Social History Tobacco Use [...] Answer Date Recorded PHQ-2 Score 0 03/13/2020 [facility] [place] of Occupat ional Health - Occupational Stress [...] documented as of this encounter Care Teams Splunk Architect Relationship Specialty Start Date End Date Deep Pruitt APRN PCP - General 05/22/19 documented as of this encounter
--- OUTSIDE RECORDS SUMMARY | 2025-04-07 14:59 | XMS_ITS | Encounter Summary ---
Author Organization [facility] Address [address] [place] [address] Care Team Providers Care Toucher Up Name Role Phone Deep Pruitt APRN Primary Care Provider Encounter Details Date Type Department Care Team ([facility] st Contact Info) Description 06/13/2020 Scanned Document [facility] [address] [place], [place] [phone] Deep Pruitt APRN [address] [place] [address] Social History Tobacco Use Types [...] Answer Date Recorded PHQ-2 Score 0 03/13/2020 [facility] [place] of Occupat ional Health - Occupational Stress [...] documented as of this encounter Care Teams Toucher Up Relationship Specialty Start Date End Date Deep Pruitt APRN PCP - General 05/22/19 documented as of this encounter
--- OUTSIDE RECORDS SUMMARY | 2025-04-07 14:59 | XMS_ITS | Encounter Summary ---
Author Organization [employer] Address [address] [facility] 7t [place] [address] Care Team Providers Care Coke Crusher Operator Name Role Phone Katrin Santoyo MD Primary Care Pro vider Edison Vieira MD Unavailable [phone] Joe Devi MD Unavailable [phone] Chuy Mcmanus MD Unavailable Sveta Lazaro RN Unavailable [phone] Leslie Kline Unavailable Reason for Visit * Reason Onset Date Comments Durable Medical Equipment 11/08/2023 Encounter Details Date Type Department Care Team (Late st Contact Info) Description 11/08/2023 Telephone [facility] [address] [place], [place] [phone] Katrin Santoyo MD [address] [place], [place] [phone] Durable Medical Equipment Social History Tobacco Use [...] 11/10/2023 11:01 AM EDT Call placed to [employer] spoke to Zhen who was informed on 10/31/23 we faxed over RX with the qty on it. He reports that what they need is the letter of medical necessity not the Rx. He reports he will fax it to [facility] team at [phone] and once signed and faxed back it [...] Description 04/08/2025 10:00 AM EST Office Visit [facility] [address] [place] [address] Katrin Santoyo MD [address] [place] [address] documented as of this encounter Goals Goal Patient Goal Type Associated Problems Recent Progress Patient-Stated? Author Blood Pressure < 140/90 Blood Pressure 148/87(2024 12:59 PM EDT) No Piers-Gambl eNimosa, PharmD Hemoglobin A1c < 7 Result Component 7.1( 2:58 PM EDT) No Piers-Gambl e, Eve, PharmD documented as of this encounter Visit Diagnoses Not on filedocumented in this encounter Additional Health Concerns Assessment Noted Time PHQ-9 Depression Total Score: 4 10/31/19 10:32 AM EDT documented as of this encounter Care Teams Coke Crusher Operator Relationship Specialty Start Date End Date Katrin Santoyo MD [address] [place] [address] PCP - General Internal Medicine 12/13/22 Edison Vieira MD [address] [place] [address] Pulmonary Disease 04/07/24 Joe Devi MD [address] [place] [address] 3rd [place] [address] Gastroenterology 04/07/24 Chuy Mcmanus MD [address] [place] [address] Bariatrics 09/25/24 Sveta Lazaro, CASIE [address] [place] [address] Registered Nurse Family Medicine 11/29/24 Leslie Kline 11/29/24 Carito Roche DNP [address] [facility], [address] [place] [address] Nephrology 04/07/24 [employer] [facility] 04/11/24 12/18/24 [facility] documented as of this encounter
--- OUTSIDE RECORDS SUMMARY | 2025-04-07 14:59 | XMS_ITS | Encounter Summary ---
Author Organization [facility] Address [address] [place] [address] Care Team Providers Care Embedded Developer Name Role Phone Deep Pruitt APRN Primary Care Provider [phone] Reason for Visit * Reason Comments Medication Refill Encounter Details Date Type Department Care Team ([facility] st Contact Info) Description 05/18/2020 Refill [facility] [address] [place] [address] Deep Pruitt APRN [address] [place] [phone] Medication Refill Social History Tobacco Use [...] Answer Date Recorded PHQ-2 Score 0 03/13/2020 [facility] [place] of Occupat ional Health - Occupational [...] documented as of this encounter Care Teams Embedded Developer Relationship Specialty Start Date End Date Deep Pruitt APRN PCP - General 05/22/19 documented as of this encounter
--- OUTSIDE RECORDS SUMMARY | 2025-04-07 14:59 | XMS_ITS | Encounter Summary ---
Author Organization [facility] Address [address] [place] [address] Care Team Providers Care Core Stacker Name Role Phone Deep Pruitt APRN Primary Care Provider Reason for Visit * Reason Comments Medication Refill Encounter Details Date Type Department Care Team ([facility] st Contact Info) Description 02/25/2022 Refill [facility] [address] [place], [place] [phone] Deep Pruitt, JOHN [address] [place] [phone] Medication Refill Social History Tobacco Use [...] as of this encounter Care Teams Core Stacker Relationship Specialty Start Date End Date Deep Pruitt APRN PCP - General 05/22/19 documented as of this encounter
--- OUTSIDE RECORDS SUMMARY | 2025-04-07 14:59 | XMS_ITS | Encounter Summary ---
Author Organization [facility] [employer] and [facility] Address [address] [place] [address] Care Team Providers Care Cycle Director Name Role Phone Deep Pruitt APRN Primary Care Provider Reason for Visit * Reason Comments DME Encounter Details Date Type Department Care Team ([facility] st Contact Info) Description 05/04/2022 Documentation Sleep Medicine Program at [address] [place] [phone] Jarad De Leon MD [address] [place] [phone] Social History Tobacco Use Types Packs/Day [...] Date Recorded PHQ-2 Total Score 2 02/17/2022 [facility] of Occupat ional Health [...] documented as of this encounter Care Teams Cycle Director Relationship Specialty Start Date End Date Deep Pruitt APRN PCP - General 05/22/19 documented as of this encounter
--- OUTSIDE RECORDS SUMMARY | 2025-04-07 14:59 | XMS_ITS | Encounter Summary ---
Author Organization [facility] [employer] and [facility] Address [address] [place] [address] Care Team Providers Care Financial Analyst Name Role Phone Deep Pruitt APRN Primary Care Provider Reason for Visit * Reason Comments DME Encounter Details Date Type Department Care Team (Late st Contact Info) Description 04/11/2022 Documentation Sleep Medicine Program at [address] [place] [address] Jarad De Leon MD [address] [place] [phone] Social History Tobacco Use Types Packs/Day [...] Recorded PHQ-2 Total Score 2 02/17/2022 [facility] of Occupat ional [...] as of this encounter Care Teams Financial Analyst Relationship Specialty Start Date End Date Deep Pruitt APRN PCP - General 05/22/19 documented as of this encounter
--- OUTSIDE RECORDS SUMMARY | 2025-04-07 14:59 | XMS_ITS | Encounter Summary ---
Author Organization [facility] Address [address] [place] [address] Care Team Providers Care Night Clerk Auditor Name Role Phone Deep Pruitt APRN Primary Care Provider Reason for Visit * Reason Comments Medication Refill Encounter Details Date Type Department Care Team ([facility] st Contact Info) Description 06/07/2022 Refill [facility] [address] [place], [place] [phone] Deep Pruitt APRN [address] [place] [address] Medication Refill Social History Tobacco [...] you attend chur ch or buddhism services? More than 4 times per year [...] Date Recorded PHQ-2 Total Score 2 02/17/2022 [facility] [...] your living situation today? [facility] have a [facility] live 05/19/2022 Sex and [...] documented as of this encounter Care Teams Night Clerk Auditor Relationship Specialty Start Date End Date Deep Pruitt APRN PCP - General 05/22/19 documented as of this encounter
--- OUTSIDE RECORDS SUMMARY | 2025-04-07 14:59 | XMS_ITS | Encounter Summary ---
Author Organization [facility] Address [address] [place] [address] Care Team Providers Care Citrus Peeler Name Role Phone Deep Pruitt APRN Primary Care Provider Reason for Visit * Reason Comments Other Encounter Details Date Type Department Care Team ([facility] Contact Info) Description 05/24/2022 Telephone [facility] [address] [place] [address] Deep Pruitt APRN [address] [place] [phone] Other Social History Tobacco Use Types [...] you attend chur ch or jewish services? More than 4 times per year [...] Score 2 02/17/2022 [facility] - Occupational Stress Questionnaire Answer Date [...] your living situation today? I have a [facility] place to live 05/19/2022 Sex [...] AM EST Patient best call back number [phone]. Patient has an upcoming appt with his [...] documented as of this encounter Care Teams Citrus Peeler Relationship Specialty Start Date End Date Deep Pruitt APRN PCP - General 05/22/19 documented as of this encounter
--- OUTSIDE RECORDS SUMMARY | 2025-04-07 14:59 | XMS_ITS | Encounter Summary ---
Author Organization [facility] Address [address] [place] [address] Care Team Providers Care Workforce Development Vice President Name Role Phone Deep Pruitt APRN Primary Care Provider Reason for Visit * Reason Comments Medication Refill Encounter Details Date Type Department Care Team ([facility] st Contact Info) Description 05/13/2020 Refill [facility] [employer] [address] [employer] [place], [place] [address] Deep Pruitt APRN [address] [place] [address] Medication Refill Social History Tobacco [...] Answer Date Recorded PHQ-2 Score 0 03/13/2020 [facility] of Occupat ional Health - [...] documented as of this encounter Care Teams Workforce Development Vice President Relationship Specialty Start Date End Date Deep Pruitt APRN PCP - General 05/22/19 documented as of this encounter
--- OUTSIDE RECORDS SUMMARY | 2025-04-07 14:59 | XMS_ITS | Encounter Summary ---
Author Organization [facility] Address [address] [place] [address] Care Team Providers Care Service Rig Operator Name Role Phone IndianapolisDeep medina Niko LOPEZ Primary Care Provider Reason for Visit * Reason Comments Medication Refill Encounter Details Date Type Department Care Team ([facility] st Contact Info) Description 05/12/2020 Refill [facility] [address] [facility] [address] [place] [phone] Zena Hines PA [address] [place] [phone] Medication Refill Social History Tobacco Use [...] Date Recorded PHQ-2 Score 0 03/13/2020 [facility] of Occupat [...] Pike Please review pt no longer seeing [facility] Wellness Dept for DM management. [...] as of this encounter Care Teams Service Rig Operator Relationship Specialty Start Date End Date Deep Pruitt APRN PCP - General 05/22/19 documented as of this encounter
--- OUTSIDE RECORDS SUMMARY | 2025-04-07 14:59 | XMS_ITS | Encounter Summary ---
Author Organization [facility] Address [address] [place] [address] Care Team Providers Care Field Broomer Name Role Phone Deep Pruitt APRN Primary Care Provider Reason for Visit * Reason Comments Medication Refill Encounter Details Date Type Department Care Team ([facility] st Contact Info) Description 07/10/2020 Refill [facility] [address] [place] [address] Deep Pruitt APRN [address] [place] [phone] Medication Refill Social History Tobacco Use [...] as of this encounter Care Teams Field Broomer Relationship Specialty Start Date End Date Deep Pruitt APRN PCP - General 05/22/19 documented as of this encounter
--- OUTSIDE RECORDS SUMMARY | 2025-04-07 15:00 | XMS_ITS | Encounter Summary ---
Author Organization [facility] Address [address] [place] [address] Care Team Providers Care Hris Manager Name Role Phone Deep Pruitt APRN Primary Care Provider Reason for Visit * Reason Comments Medication Refill Encounter Details Date Type Department Care Team ([facility] st Contact Info) Description 12/15/2021 Refill [facility] [address] [place], [place] [phone] Deep Pruitt APRN [address] [place] [address] Medication Refill Social History [...] Date Recorded PHQ-2 Total Score 1 12/16/2021 [facility] of Occupat ional [...] documented as of this encounter Care Teams Hris Manager Relationship Specialty Start Date End Date Deep Pruitt APRN PCP - General 05/22/19 documented as of this encounter
--- OUTSIDE RECORDS SUMMARY | 2025-04-07 15:00 | XMS_ITS | Encounter Summary ---
Author Organization [facility] Address [address] [place] [address] Care Team Providers Care Land Agent Name Role Phone Deep Pruitt Niko LOPEZ Primary Care Provider Reason for Visit * Reason Onset Date Comments Medication Refill 11/19/2021 Encounter Details Date Type Department Care Team (Late st Contact Info) Description 11/19/2021 Refill [facility] [address] [place], [place] [phone] Audelia Childs, [facility] [address] [id number] [place] [address] Medication Refill Social History Tobacco Use Types [...] Date Recorded PHQ-2 Total Score 0 11/17/2021 [employer] of Occupat ional Health - [...] as of this encounter Care Teams Land Agent Relationship Specialty Start Date End Date Deep Pruitt APRN PCP - General 05/22/19 documented as of this encounter
--- OUTSIDE RECORDS SUMMARY | 2025-04-07 15:00 | XMS_ITS | Encounter Summary ---
Author Organization [facility] Address [address] [place] [address] Care Team Providers Care Head Librarian Name Role Phone Deep Pruitt JOHN Primary Care Provider Encounter Details Date Type Department Care Team (Late st Contact Info) Description 02/12/2016 Scanned Document [facility] [address] [place] [address] Francisco Veloz PA [address] [place] [phone] Social History Tobacco Use Types Packs/Day [...] as of this encounter Care Teams Head Librarian Relationship Specialty Start Date End Date Deep Pruitt APRN PCP - General 05/22/19 documented as of this encounter
--- OUTSIDE RECORDS SUMMARY | 2025-04-07 15:00 | XMS_ITS | Encounter Summary ---
Author Organization [facility] Address [address] [place] [address] Care Team Providers Care Ticketing Clerk Name Role Phone Deep Pruitt JOHN Primary Care Provider Encounter Details Date Type Department Care Team (Late st Contact Info) Description 04/05/2017 Scanned Document [facility] [address] [place], [place] [phone] Francisco Veloz PA [address] [place] [phone] Social History Tobacco Use Types Packs/Day [...] documented as of this encounter Care Teams Ticketing Clerk Relationship Specialty Start Date End Date Deep Pruitt APRN PCP - General 05/22/19 documented as of this encounter
--- OUTSIDE RECORDS SUMMARY | 2025-04-07 15:00 | XMS_ITS | Encounter Summary ---
Author Organization [facility] [employer] and [facility] Address [address] [place] [address] Care Team Providers Care Sprinkling System Irrigator Name Role Phone Deep Pruitt APRN Primary Care Provider Reason for Visit * Reason Onset Date Comments Medication Refill 11/10/2021 Encounter Details Date Type Department Care Team (Late st Contact Info) Description 11/10/2021 Refill [facility] at [address] [facility] [address] [facility] 2nd [place] [address] Taylor Malagon, [facility] [address] [place] [phone] Medication Refill Social History Tobacco Use Types [...] unknown at home. Defer to [facility] pharmacy team for antihypertensive management. Current regimen [...] as of this encounter Care Teams Sprinkling System Irrigator Relationship Specialty Start Date End Date Deep Pruitt APRN PCP - General 05/22/19 documented as of this encounter
--- OUTSIDE RECORDS SUMMARY | 2025-04-07 15:00 | XMS_ITS | Encounter Summary ---
Author Organization [facility] Address [address] [place] [address] Care Team Providers Care Engineering Programmer Name Role Phone Deep Pruitt JOHN Primary Care Provider Encounter Details Date Type Department Care Team (Late st Contact Info) Description 01/02/2017 Scanned Document [facility] [address] [place], [place] [phone] Francisco Veloz PA [address] [place] [address] Social History Tobacco Use Types [...] as of this encounter Care Teams Engineering Programmer Relationship Specialty Start Date End Date Deep Pruitt APRN PCP - General 05/22/19 documented as of this encounter
--- OUTSIDE RECORDS SUMMARY | 2025-04-07 15:00 | XMS_ITS | Encounter Summary ---
Author Organization [facility] Address [address] [place] [address] Care Team Providers Care Agency Legal Counsel Name Role Phone Deep Pruitt JOHN Primary Care Provider Encounter Details Date Type Department Care Team (Late st Contact Info) Description 11/22/2017 Scanned Document [facility] [address] [place], [place] [phone] Francisco Veloz PA [address] [place] [address] Social History Tobacco Use Types [...] as of this encounter Care Teams Agency Legal Counsel Relationship Specialty Start Date End Date Deep Pruitt APRN PCP - General 05/22/19 documented as of this encounter
--- OUTSIDE RECORDS SUMMARY | 2025-04-07 15:00 | XMS_ITS | Encounter Summary ---
Author Organization [facility] [employer] and [facility] Address [address] [place] [address] Care Team Providers Care Animal Services Officer Name Role Phone Deep Pruitt APRN Primary Care Provider Reason for Visit * Reason Onset Date Comments Medication Refill 11/10/2021 Encounter Details Date Type Department Care Team (Late st Contact Info) Description 11/10/2021 Refill [facility] at [address] [place] [address] Anahi Rossi, JOHN [address] [place] [address] Medication Refill Social History Tobacco [...] as of this encounter Care Teams Animal Services Officer Relationship Specialty Start Date End Date Deep Pruitt APRN PCP - General 05/22/19 documented as of this encounter
--- OUTSIDE RECORDS SUMMARY | 2025-04-07 15:00 | XMS_ITS | Encounter Summary ---
Author Organization [facility] Address [address] [place] [address] Care Team Providers Care Inspector Shells Name Role Phone Deep Pruitt APRN Primary Care Provider Encounter Details Date Type Department Care Team ([facility] st Contact Info) Description 10/27/2021 Scanned Document [facility] [address], [place] [phone] Deep Pruitt APRN [address] [place] [address] Social History Tobacco Use Types [...] Date Recorded PHQ-2 Total Score 0 10/12/2021 [facility] [...] as of this encounter Care Teams Inspector Shells Relationship Specialty Start Date End Date Deep Pruitt APRN PCP - General 05/22/19 documented as of this encounter
--- OUTSIDE RECORDS SUMMARY | 2025-04-07 15:00 | XMS_ITS | Encounter Summary ---
Author Organization [facility] Address [address] [place] [address] Care Team Providers Care Roll Sheeting Cutter Name Role Phone Romelia Pruittian Niko LOPEZ Primary Care Provider Reason for Visit * Reason Onset Date Comments Medication Refill 11/19/2021 Encounter Details Date Type Department Care Team (Late st Contact Info) Description 11/19/2021 Refill [facility] [address] [place] [id number] Carlos Eduardo Joyner MD [address] [place] [phone] Medication Refill Social History Tobacco Use [...] Date Recorded PHQ-2 Total Score 0 11/17/2021 [facility] [...] as of this encounter Care Teams Roll Sheeting Cutter Relationship Specialty Start Date End Date Deep Pruitt APRN PCP - General 05/22/19 documented as of this encounter
--- OUTSIDE RECORDS SUMMARY | 2025-04-07 15:00 | XMS_ITS | Encounter Summary ---
Author Organization [facility] Address [address] [place] [address] Care Team Providers Care Director Radiation Oncology Name Role Phone Deep Pruitt APRN Primary Care Provider Reason for Visit * Reason Comments Medication Problem Encounter Details Date Type Department Care Team ([facility] st Contact Info) Description 12/21/2021 Refill [facility] [address] [place] [address] Deep Pruitt APRN [address] [place] [address] Medication Problem Social History Tobacco [...] updated information the water pill. Call back [phone] * Telephone Encounter - Sarah Newman - 12/21/2021 1:05 PM EDT Best contact: [phone] Patient Sissy called and stated that she contacted [facility] on [address] and they informed [...] as of this encounter Care Teams Director Radiation Oncology Relationship Specialty Start Date End Date Deep Pruitt APRN PCP - General 05/22/19 documented as of this encounter
--- OUTSIDE RECORDS SUMMARY | 2025-04-07 15:00 | XMS_ITS | Encounter Summary ---
Author Organization [facility] Address [address] [place] [address] Care Team Providers Care Health/Safety Job Titles Name Role Phone Deep Pruitt APRN Primary Care Provider Reason for Visit * Reason Comments Other Advice Only Encounter Details Date Type Department Care Team ([facility] Info) Description 10/20/2021 Telephone [facility] [address] [place] [address] Deep Pruitt APRN [address] [place] [address] Other; Advice Only Social History [...] legs have not stops hurting. Contact number [phone] documented in this encounter Plan of Treatment Not on file documented as of this encounter Visit Diagnoses Not on filedocumented in this encounter Additional Health Concerns Assessment Noted Time PHQ-9 Depression Total Score: 0 10/13/19 22 2:23 PM EDT documented as of this encounter Care Teams Health/Safety Job Titles Relationship Specialty Start Date End Date Deep Pruitt APRN PCP - General 05/22/19 documented as of this encounter
--- OUTSIDE RECORDS SUMMARY | 2025-04-07 15:00 | XMS_ITS | Clinical Summary ---
Author Organization [facility] Address [address] [place] [address] Phone Care Team Providers Care Manager Wound Name Role Phone Physician, No Pcp Primary [...] mg total) by mouth daily. 04/07/20 24 Active gabapentin (NEURONTIN) 600 mg tablet Take [...] days. 6 each 04/08/20 24 Active Immunizations Immunization Administration Dates Next Due Moderna SARS-CoV-2 COVID-19, mRNA, LNP-S, preservative free 08/28/2020,07/28/2020 Pfizer SARS-CoV-2 COVID-19, mRNA, LNP-S, preservative free 04/14/2021 Medical History Medical History Date Comments Diabetes mellitus ([facility] V24, [facility] V28) Hypertension REGI (obstructive sleep [...] [facility] Annual BMP Blood Test Abstracted Result [facility] Provider HEALTH MAINTENANCE Final Result * Lipid panel (09/19/2023) [facility] Triglycerides 0 mg/dL Comment:No interpretation Cholesterol 0 mg/dL Comment:No interpretation HDL 0 mg/dL Comment:No interpretation LDL Cholesterol 0 mg/dL Comment:No interpretation Blood Venous blood specimen / Unknown [facility] Provider LAB BLOOD ORDERABLES Fauzia l Result * Urine Albumin Creatinine Ratio (05/19/2023) Pathologist [facility] Urine Albumin Creatinine Ratio Abstracted Result [facility] Provider HEALTH MAINTENANCE Final Result * Hemoglobin A1c (05/17/2023) [facility] Hemoglobin A1C 0.0 % Comment:No interpretation Blood Venous blood specimen / Unknown Historical Provider LAB BLOOD ORDERABLES Fauzia l Result * HIV Screening (12/06/2022) HIV Screening Abstracted Historical Provider HEALTH MAINTENANCE Final Result * Hepatitis C Screening (12/06/2022) Hepatitis C Screening Abstracted Historical Provider HEALTH MAINTENANCE Final Result from Last 3 Months or Most Recently Relevant to Health Maintenance [place] Sub[place] Plan / Payer (Ef fective 2024-Present) Name:DARREL MARHKAM Relation to Subscriber:Self Name:Darrel Hagan Payer ID:[id number] Group ID:Not on file Type:Not on file Address: [facility] [place] ATTN:CLAIMS [address] [place] [address] [employer] GENERIC Care Teams Manager Wound Relationship Specialty Start Date End Date Physician, No Pcp PCP - General 04/08/24
--- OUTSIDE RECORDS SUMMARY | 2025-04-07 15:00 | XMS_ITS | Encounter Summary ---
Author Organization [facility] Address [address] [place] [address] Care Team Providers Care Cash Application Clerk Name Role Phone Deep Pruitt JOHN Primary Care Provider Encounter Details Date Type Department Care Team (Late st Contact Info) Description 02/13/2018 Scanned Document [facility] [address] [place] [address] Francisco Veloz PA [address] [place] [phone] Social History Tobacco Use Types Packs/Day [...] documented as of this encounter Care Teams Cash Application Clerk Relationship Specialty Start Date End Date Deep Pruitt APRN PCP - General 05/22/19 documented as of this encounter
--- OUTSIDE RECORDS SUMMARY | 2025-04-07 15:00 | XMS_ITS | Encounter Summary ---
Author Organization [facility] Address [address] [place] [address] Care Team Providers Care Toll Ticket Clerk Name Role Phone Romelia Pruittian Niko LOPEZ Primary Care Provider Reason for Visit * Reason Onset Date Comments Medication Refill 11/10/2021 Encounter Details Date Type Department Care Team (Late st Contact Info) Description 11/10/2021 Refill [facility] [address] [facility] [address] [place] [phone] Anahi Rossi, JOHN [address] [place] [phone] Medication Refill Social History Tobacco Use [...] Score 0 10/12/2021 [facility] - Occupational Stress [...] documented as of this encounter Care Teams Toll Ticket Clerk Relationship Specialty Start Date End Date Deep Pruitt APRN PCP - General 05/22/19 documented as of this encounter
--- OUTSIDE RECORDS SUMMARY | 2025-04-07 15:00 | XMS_ITS | Encounter Summary ---
Author Organization [facility] Address [address] [place] [address] Care Team Providers Care Electrical Wiring Lineman Name Role Phone Deep Pruitt JOHN Primary Care Provider Reason for Visit * Reason Comments Medication Refill Encounter Details Date Type Department Care Team (Late st Contact Info) Description 12/03/2021 Refill [facility] Podiatry at [address] [place] [phone] Arben Fountain, NOLVIA [address] [place] [address] Medication Refill Social History Tobacco [...] Date Recorded PHQ-2 Total Score 0 11/17/2021 [facility], [...] as of this encounter Care Teams Electrical Wiring Lineman Relationship Specialty Start Date End Date Deep Pruitt APRN PCP - General 05/22/19 documented as of this encounter
--- OUTSIDE RECORDS SUMMARY | 2025-04-07 15:00 | XMS_ITS | Encounter Summary ---
Author Organization [facility] Address [address] [place] [address] Care Team Providers Care Hydraulic Strainer Operator Name Role Phone Deep Pruitt JOHN Primary Care Provider Encounter Details Date Type Department Care Team (Late st Contact Info) Description 09/26/2016 Scanned Document [facility] [address] [place], [place] [phone] External, Provider Social History Tobacco Use Types [...] as of this encounter Care Teams Hydraulic Strainer Operator Relationship Specialty Start Date End Date Deep Pruitt APRN PCP - General 05/22/19 documented as of this encounter
--- OUTSIDE RECORDS SUMMARY | 2025-04-07 15:00 | XMS_ITS | Encounter Summary ---
Author Organization [facility] Address [address] [place] [address] Care Team Providers Care Assistant Office Manager Name Role Phone Deep Pruitt JOHN Primary Care Provider Encounter Details Date Type Department Care Team (Late st Contact Info) Description 02/20/2017 Scanned Document [facility] [address] [place] [address] Francisco Veloz PA [address] [place] [phone] Social History Tobacco Use Types Packs/Day [...] as of this encounter Care Teams Assistant Office Manager Relationship Specialty Start Date End Date Deep Pruitt APRN PCP - General 05/22/19 documented as of this encounter
--- OUTSIDE RECORDS SUMMARY | 2025-04-07 15:00 | XMS_ITS | Encounter Summary ---
Author Organization [facility] Address [address] [place] [address] Care Team Providers Care Dump Motorman Name Role Phone Deep Pruitt JOHN Primary Care Provider [phone] Encounter Details Date Type Department Care Team (Late st Contact Info) Description 01/01/2018 Scanned Document [facility] [address] [place], [place] [address] Francisco Veloz PA [address] [place] [phone] Social History Tobacco Use Types Packs/Day [...] documented as of this encounter Care Teams Dump Motorman Relationship Specialty Start Date End Date Deep Pruitt APRN PCP - General 05/22/19 documented as of this encounter
--- OUTSIDE RECORDS SUMMARY | 2025-04-07 15:00 | XMS_ITS | Encounter Summary ---
Author Organization [facility] [employer] and [facility] Address [address] [place] [address] Care Team Providers Care Office Correspondent Name Role Phone Deep Pruitt APRN Primary Care Provider Reason for Visit * Reason Onset Date Comments Medication Refill 11/19/2021 Encounter Details Date Type Department Care Team (Late st Contact Info) Description 11/19/2021 Refill [facility] [address] [facility] [address] [facility] 2nd [place] [address] Yue Dominguez APRN [address] [place] [phone] Medication Refill Social History Tobacco Use Types [...] Date Recorded PHQ-2 Total Score 0 11/17/2021 [facility] - [...] as of this encounter Care Teams Office Correspondent Relationship Specialty Start Date End Date Deep Pruitt APRN PCP - General 05/22/19 documented as of this encounter
--- OUTSIDE RECORDS SUMMARY | 2025-04-07 15:00 | XMS_ITS | Encounter Summary ---
Author Organization [facility] Address [address] [place] [address] Care Team Providers Care Machine Package Sealer Name Role Phone Deep Pruitt JOHN Primary Care Provider Encounter Details Date Type Department Care Team (Late st Contact Info) Description 01/17/2019 Scanned Document [facility] [address] [place], [place] [phone] External, Provider Social History Tobacco Use Types [...] as of this encounter Care Teams Machine Package Sealer Relationship Specialty Start Date End Date Deep Pruitt APRN PCP - General 05/22/19 documented as of this encounter
--- OUTSIDE RECORDS SUMMARY | 2025-04-07 15:00 | XMS_ITS | Encounter Summary ---
Author Organization [facility] Address [address] [place] [address] Care Team Providers Care Shop And Alteration Tailor Name Role Phone Deep Pruitt APRN Primary Care Provider Reason for Visit * Reason Comments Medication Refill Encounter Details Date Type Department Care Team ([facility] st Contact Info) Description 11/17/2021 Refill [facility] [address] [place], [place] [phone] Deep Pruitt APRN [address] [place] [address] Medication Refill Social History Tobacco [...] documented as of this encounter Care Teams Shop And Alteration Tailor Relationship Specialty Start Date End Date Deep Pruitt APRN PCP - General 05/22/19 documented as of this encounter
--- OUTSIDE RECORDS SUMMARY | 2025-04-07 15:00 | XMS_ITS | Encounter Summary ---
Author Organization [facility] Address [address] [place] [address] Care Team Providers Care Mechanic Helper Name Role Phone Deep Pruitt APRN Primary Care Provider [phone] Reason for Visit * Reason Comments Medication Refill Encounter Details Date Type Department Care Team ([facility] st Contact Info) Description 12/18/2021 Refill [facility] [address] [place], [place] [phone] Deep Pruitt APRN [address] [place] [address] Medication Refill Social History Tobacco [...] Date Recorded PHQ-2 Total Score 4 12/20/2021 [facility]at ional [facility] - [...] as of this encounter Care Teams Mechanic Helper Relationship Specialty Start Date End Date Deep Pruitt APRN PCP - General 05/22/19 documented as of this encounter
--- OUTSIDE RECORDS SUMMARY | 2025-04-07 15:00 | XMS_ITS | Encounter Summary ---
Author Organization [facility] [employer] and [facility] Address [address] [place] [address] Care Team Providers Care Press Machine Feeder Name Role Phone Deep Pruitt APRN Primary Care Provider Reason for Visit * Reason Onset Date Comments Medication Refill 11/10/2021 Encounter Details Date Type Department Care Team (Late st Contact Info) Description 11/10/2021 Refill [facility] [address] [facility] [address] [facility] 2nd [place] [address] Taylor Malagon, [facility] [address] [place] [phone] Medication Refill Social History Tobacco Use Types [...] documented as of this encounter Care Teams Press Machine Feeder Relationship Specialty Start Date End Date Deep Pruitt APRN PCP - General 05/22/19 documented as of this encounter
--- OUTSIDE RECORDS SUMMARY | 2025-04-07 15:00 | XMS_ITS | Encounter Summary ---
Author Organization [facility] Address [address] [place] [address] Care Team Providers Care Pinked Edge Sewing Machine Operator Name Role Phone Romelia Pruittian Niko LOPEZ Primary Care Provider [phone] [phone] Encounter Details Date Type Department Care Team (Late st Contact Info) Description 11/30/2021 Scanned Document [facility] [address] [place] [address] External, Provider Social History Tobacco Use Types [...] Recorded PHQ-2 Total Score 0 11/17/2021 [facility] Occupat ional Health [...] documented as of this encounter Care Teams Pinked Edge Sewing Machine Operator Relationship Specialty Start Date End Date Deep Pruitt APRN PCP - General 05/22/19 documented as of this encounter
--- OUTSIDE RECORDS SUMMARY | 2025-04-07 15:00 | XMS_ITS | Encounter Summary ---
Author Organization [facility] [employer] and [facility] Address [address] [place] [phone] Care Team Providers Care Server Programmer Name Role Phone Deep Pruitt APRN Primary Care Provider Reason for Visit * Reason Onset Date Comments Medication Refill 11/19/2021 Encounter Details Date Type Department Care Team (Late st Contact Info) Description 11/19/2021 Refill [facility] [address] [facility] [address] [facility] 2nd [place] [address] Yue Dominguez APRN [address] [place] [phone] Medication Refill Social History Tobacco Use Types [...] PHQ-2 Total Score 0 11/17/2021 [facility] [...] as of this encounter Care Teams Server Programmer Relationship Specialty Start Date End Date Deep Pruitt APRN PCP - General 05/22/19 documented as of this encounter
--- OUTSIDE RECORDS SUMMARY | 2025-04-07 15:00 | XMS_ITS | Encounter Summary ---
Author Organization [facility] Address [address] [place] [address] Care Team Providers Care Communications Operator Name Role Phone Deep Pruitt APRN Primary Care Provider Reason for Visit * Reason Comments Advice Only Other Encounter Details Date Type Department Care Team ([facility] Contact Info) Description 12/02/2021 Telephone [facility] [address] [place] [address] Deep Pruitt APRN [address] [place] [address] Advice Only; Other Social History [...] Mira Rios - 12/02/2021 1:32 PM EDT [facility] - [address] calling in regards to med refill request for Carvedilol 25 mg and Gabapentin medications. Call back [phone] * Telephone Encounter - Leah Madera LPN - 12/02/2021 1:21 PM EDT Patient at * Telephone Encounter - Usha Kilne - 12/02/2021 12:18 PM EDT Pt is having a lot of stomach pain on the left side and would like to speak with PCP or nurse. Requesting a call back. [facility] callback number [phone] Swazi speaking documented in this encounter Plan of [...] as of this encounter Care Teams Communications Operator Relationship Specialty Start Date End Date Deep Pruitt APRN PCP - General 05/22/19 documented as of this encounter
--- OUTSIDE RECORDS SUMMARY | 2025-04-07 15:01 | XMS_ITS | Encounter Summary ---
Author Organization [facility] Address [address] [place] [address] Care Team Providers Care Volunteer Services Specialist Name Role Phone Deep Pruitt APRN Primary Care Provider Encounter Details Date Type Department Care Team ([facility] st Contact Info) Description 11/14/2020 Scanned Document [facility] [address] [place], [place] [phone] Deep Pruitt APRN [address] [place] [address] Social History Tobacco Use Types [...] Date Recorded PHQ-2 Total Score 0 11/18/2020 [facility] Occupat ional Health [...] as of this encounter Care Teams Volunteer Services Specialist Relationship Specialty Start Date End Date Deep Pruitt APRN PCP - General 05/22/19 documented as of this encounter
--- OUTSIDE RECORDS SUMMARY | 2025-04-07 15:01 | XMS_ITS | Encounter Summary ---
Author Organization [employer] Address [address] [facility] 7t [place] [address] Care Team Providers Care Cook Fruit Name Role Phone Katrin Santoyo MD Primary Care Pro vider Edison Vieira MD Unavailable [phone] Joe Devi MD Unavailable [phone] Chuy Mcmanus MD Unavailable Sveta Lazaro RN Unavailable [phone] Leslie Kline Unavailable Reason for Visit * Reason Comments Med Refill Encounter Details Date Type Department Care Team (Late st Contact Info) Description 01/02/2023 Refill [facility] [address] [place] [address] Elise Stanford FNP Hemorrhoids, unspecified hemorrhoid type [...] Description 04/08/2025 10:00 AM EST Office Visit [facility] [address] [place] [address] Katrin Santoyo MD [address] [place] [address] documented as of this encounter Goals Goal Patient Goal Type Associated Problems Recent Progress Patient-Stated? Author Blood Pressure < 140/90 Blood Pressure 148/87(2024 12:59 PM EDT) No NemesiosEve Greene, PharmD Hemoglobin A1c < 7 Result Component 7.1( 2:58 PM EDT) No NemesiosEve Greene PharmD documented as of this encounter Visit Diagnoses Diagnosis Hemorrhoids, unspecified hemorrhoid type documented in this encounter Additional Health Concerns Assessment Noted Time PHQ-9 Depression Total Score: 24 023 2:05 PM EDT documented as of this encounter Care Teams Cook Fruit Relationship Specialty Start Date End Date Katrin Santoyo MD [address] [place] [phone] PCP - General Internal Medicine 12/13/22 Edison Vieira MD [address] [place] [address] Pulmonary Disease 04/07/24 Joe Devi MD [address] [place] [address] [address] [place] [address] Gastroenterology 04/07/24 Chuy Mcmanus MD [address] [place] [address] Bariatrics 09/25/24 Sveta Lazaro RN [address] [place] [address] Registered Nurse Family Medicine 11/29/24 Leslie Kline 11/29/24 Carito Roche DNP [address] [place] [address], [address] [place] [address] Nephrology 04/07/24 [employer] 04/11/24 12/18/24 [facility] 12/14/24 documented as of this encounter
--- OUTSIDE RECORDS SUMMARY | 2025-04-07 15:01 | XMS_ITS | Encounter Summary ---
Author Organization [employer] Address [address] 7t [place] [address] Care Team Providers Care Ambulatory Technologist Name Role Phone Katrin Santoyo MD Primary Care Pro vider Edison Vieira MD Unavailable [phone] Joe Devi MD Unavailable [phone] Chuy Mcmanus MD Unavailable Sveta Lazaro RN Unavailable [phone] Leslie Kline Unavailable Encounter Details Date Type Department Care Team (Late st Contact Info) Description 03/25/2025 Orders Only [facility] [address] [place] [address] Provider, MD Abdullahi Social History Tobacco Use Types Packs/Day Years [...] Description 04/08/2025 10:00 AM EST Office Visit [facility] [address] [place] [address] Katrin Santoyo MD [address] [place] [address] documented as of this encounter Goals Goal Patient Goal Type Associated Problems Recent Progress Patient-Stated? Author Blood Pressure < 140/90 Blood Pressure 148/87(2024 12:59 PM EDT) No Piers-Gambl e, Eve, PharmD Hemoglobin A1c < 7 Result Component 7.1( 2:58 PM EDT) No Nemesios-Gambl e, Eve, PharmD documented as of this encounter Procedures Procedure Name Priority Date/Time Associated Diagnosis Comments US VENOUS DUPLEX LE RT Routine 04/07/2025 1:27 PM EST PULMONARY FUNCTION TESTING Routine 03/25/2025 PULMONARY FUNCTION TESTING Routine 03/25/2025 documented in this encounter Results * US VENOUS DUPLEX LE RT (04/07/2025 1:27 PM EST) Anatomical Region Laterality Modality Abdomen Ultrasound 04/07/2025 1:27 PM EST Narrative 04/07/2025 2:15 PM EST [place] [address] Ultrasound Report Signed Patient: Darrel Hagan MR#: [id number] : 1970 Acct:[id number] Age/Sex: 54 / M ADM Date: 04/07/25 Loc: HO.ED Attending Dr: Ordering Physician: Pooja Liz NP Date of Service: 04/07/25 Procedure(s): US venous duplex LE RT Accession Number(s): [id number] cc: Katrin Santoyo MD; Pooja Liz NP Reason for Exam: thigh pain EXAMINATION: US TRIPLEX LOWER EXTREMITY, RIGHT CLINICAL INFORMATION: Thigh pain COMPARISON: None available. TECHNIQUE: Color-flow triplex imaging with spectral analysis and compression Doppler were performed on the right lower extremity. FINDINGS: Respiratory variation, normal compression and augmented flow are noted throughout the right lower extremity. The visualized common femoral vein, superficial femoral vein, profunda femoral vein, popliteal vein and midcalf posterior tibial venous segments show no evidence of deep venous thrombosis. The peroneal vein is not visualized. Prominent groin lymph nodes, having a maximal AP measurement of 1 cm and 0.8 cm respectively. Cystic focus in the posterior knee, could reflect joint effusion versus Conway's cyst. Performing machine zipper trimmer favored joint effusion in real-time imaging. Soft tissue edema in the calf. US/US venous duplex LE RT IMPRESSION: 1. No evidence of DVT in the visualized deep veins. 2. The peroneal vein is not visualized. If the patient's symptoms persist, followup ultrasound in 5 days 7 days might be of value to exclude proximal propagation from a non-visualized calf vein. Recommendation is for a follow-up chest series to be obtained following treatment and/or resolution of symptoms to assure resolution of this appearance. 3. Prominent groin lymph nodes 4. Cystic focus in the posterior knee could reflect joint effusion versus Conway's cyst Electronically signed by: Ozzie Barajas MD 04/07/2025 02:12 PM EST Dictated By: Ozzie Barajas MD Signed By: <Electronically signed by Ozzie Barajas MD in OV> 04/07/25 1412 DD/ 1327 TD/TT: 04/07/25 1339 Machining Engineer: AGUSTIN Procedure Note Donotuseinterpreter, Image - 04/07/2025 [place] [address] Ultrasound Report Signed Patient: Darrel HaganMR#: [id number] : 1970Acct:[id number] Age/Sex: 54 / MADM Date: 04/07/25 Loc: HO.ED Attending Dr: Ordering Physician: Pooja Liz NP Date of Service: 04/07/25 Procedure(s): US venous duplex LE RT Accession Number(s): [id number] cc: Katrin Santoyo MD; Pooja Liz NP Reason for Exam: thigh pain EXAMINATION: US TRIPLEX LOWER EXTREMITY, RIGHT CLINICAL INFORMATION: Thigh pain COMPARISON: None available. TECHNIQUE: Color-flow triplex imaging with spectral analysis and compression Doppler were performed on the right lower extremity. FINDINGS: Respiratory variation, normal compression and augmented flow are noted throughout the right lower extremity. The visualized common femoral vein, superficial femoral vein, profunda femoral vein, popliteal vein and midcalf posterior tibial venous segments show no evidence of deep venous thrombosis. The peroneal vein is not visualized. Prominent groin lymph nodes, having a maximal AP measurement of 1 cm and 0.8 cm respectively. Cystic focus in the posterior knee, could reflect joint effusion versus Conway's cyst. Performing machine zipper trimmer favored joint effusion in real-time imaging. Soft tissue edema in the calf. US/US venous duplex LE RT IMPRESSION: 1. No evidence of DVT in the visualized deep veins. 2. The peroneal vein is not visualized. If the patient's symptoms persist, followup ultrasound in 5 days 7 days might be of value to exclude proximal propagation from a non-visualized calf vein. Recommendation is for a follow-up chest series to be obtained following treatment and/or resolution of symptoms to assure resolution of this appearance. 3. Prominent groin lymph nodes 4. Cystic focus in the posterior knee could reflect joint effusion versus Conway's cyst Electronically signed by: Ozzie Barajas MD 04/07/2025 02:12 PM EST RP Dictated By: Ozzie Barajas MD Signed By: <Electronically signed by Ozzie Barajas MD in OV> 04/07/25 1412 DD/ 1327 TD/TT: 04/07/25 1339 Machining Engineer: AGUSTIN [facility] External Provider IMG US PROCEDURES Final Result * Pulmonary function testing (03/25/2025) Historical Provider PFT ORDERABLES Final Res ult * Pulmonary function testing (03/25/2025) Historical Provider PFT ORDERABLES Final Res ult documented in this encounter Visit Diagnoses Not on filedocumented in this encounter Additional Health Concerns Assessment Noted Time PHQ-9 Depression Total Score: 18 025 12:21 PM EDT documented as of this encounter Care Teams Ambulatory Technologist Relationship Specialty Start Date End Date Katrin Santoyo MD [address] [place] [address] PCP - General Internal Medicine 12/13/22 Edison Vieira MD [address] [place] [address] Pulmonary Disease 04/07/24 Joe Devi MD [address] [place] [address] 3rd [place] [address] Gastroenterology 04/07/24 Chuy Mcmanus MD [address] [place] [address] [place] [address] Bariatrics 09/25/24 Sveta Lazaro RN [address] [place] [address] Registered Nurse Family Medicine 11/29/24 Leslie Kline 11/29/24 Carito Roche DNP [address] [place] [address], [address] [place] [address] Nephrology 04/07/24 [facility] 12/14/24 documented as of this encounter
--- OUTSIDE RECORDS SUMMARY | 2025-04-07 15:01 | XMS_ITS | Encounter Summary ---
Author Organization [facility] Address [address] [place] [address] Care Team Providers Care Brake Lining Finisher Name Role Phone Deep Pruitt APRN Primary Care Provider [phone] Reason for Visit * Reason Comments Medication Refill Encounter Details Date Type Department Care Team ([facility] st Contact Info) Description 11/11/2020 Refill [facility] [address] [place] [address] Deep Pruitt APRN [address] [place] [phone] Medication Refill Social History Tobacco Use [...] Answer Date Recorded PHQ-2 Score 2 07/07/2020 [facility] [...] as of this encounter Care Teams Brake Lining Finisher Relationship Specialty Start Date End Date Deep Pruitt APRN PCP - General 05/22/19 documented as of this encounter
--- OUTSIDE RECORDS SUMMARY | 2025-04-07 15:01 | XMS_ITS | Encounter Summary ---
Author Organization [facility] Address [address] [place] [address] Care Team Providers Care Cutter Out Name Role Phone Deep Pruitt APRN Primary Care Provider Reason for Visit * Reason Comments Medication Refill Encounter Details Date Type Department Care Team ([facility] st Contact Info) Description 11/11/2020 Refill [facility] [address] [place] [address] Deep Pruitt APRN [address] [place] [phone] Medication Refill Social History Tobacco Use [...] as of this encounter Care Teams Cutter Out Relationship Specialty Start Date End Date Deep Pruitt APRN PCP - General 05/22/19 documented as of this encounter
--- OUTSIDE RECORDS SUMMARY | 2025-04-07 15:01 | XMS_ITS | Encounter Summary ---
Author Organization [facility] Address [address] [place] [address] Care Team Providers Care Block Setter Gypsum Name Role Phone Deep Pruitt APRN Primary Care Provider Reason for Visit * Reason Comments Medication Refill Encounter Details Date Type Department Care Team ([facility] st Contact Info) Description 11/05/2020 Refill [facility] [address] [place] [address] Deep Pruitt APRN [address] [place] [phone] Medication Refill Social History Tobacco Use [...] documented as of this encounter Care Teams Block Setter Gypsum Relationship Specialty Start Date End Date Deep Pruitt APRN PCP - General 05/22/19 documented as of this encounter
--- OUTSIDE RECORDS SUMMARY | 2025-04-07 15:01 | XMS_ITS | Encounter Summary ---
Author Organization [facility] Address [address] [place] [address] Care Team Providers Care Plaster Molder Name Role Phone [place] medina Niko LOPEZ Primary Care Provider Reason for Visit * Reason Comments Medication Refill Encounter Details Date Type Department Care Team ([facility] st Contact Info) Description 01/04/2021 Refill [facility] [address] [place] [phone] Zena Hines PA [address] [place] [phone] Medication Refill Social History Tobacco Use [...] Date Recorded PHQ-2 Total Score 0 11/18/2020 [facility] - [...] as of this encounter Care Teams Plaster Molder Relationship Specialty Start Date End Date eDep Pruitt APRN PCP - General 05/22/19 documented as of this encounter
--- OUTSIDE RECORDS SUMMARY | 2025-04-07 15:01 | XMS_ITS | Encounter Summary ---
Author Organization [facility] Address [address] [place] [address] Care Team Providers Care Manager Sterile Processing Name Role Phone Deep Pruitt APRN Primary Care Provider Reason for Visit * Reason Comments Medication Refill Encounter Details Date Type Department Care Team ([facility] st Contact Info) Description 12/29/2020 Refill [facility] [address] [place] [address] Deep Pruitt APRN [address] [place] [phone] Medication Refill Social History Tobacco Use [...] Date Recorded PHQ-2 Total Score 0 11/18/2020 [facility]at ional [...] as of this encounter Care Teams Manager Sterile Processing Relationship Specialty Start Date End Date Deep Pruitt APRN PCP - General 05/22/19 documented as of this encounter
--- OUTSIDE RECORDS SUMMARY | 2025-04-07 15:01 | XMS_ITS | Encounter Summary ---
Author Organization [facility] Address [address] [place] [address] Care Team Providers Care Ambulance Paramedic Name Role Phone Deep Pruitt APRN Primary Care Provider Reason for Visit * Reason Comments Medication Refill Encounter Details Date Type Department Care Team ([facility] st Contact Info) Description 09/23/2020 Refill [facility] [address] [place] [address] Deep Pruitt APRN [address] [place] [phone] Medication Refill Social History Tobacco Use [...] documented as of this encounter Care Teams Ambulance Paramedic Relationship Specialty Start Date End Date Deep Pruitt APRN PCP - General 05/22/19 documented as of this encounter
--- OUTSIDE RECORDS SUMMARY | 2025-04-07 15:01 | XMS_ITS | Encounter Summary ---
Author Organization [facility] Address [address] [place] [address] Care Team Providers Care Foreign Language Professor Name Role Phone Deep Pruitt APRN Primary Care Provider Encounter Details Date Type Department Care Team ([facility] st Contact Info) Description 10/26/2020 Scanned Document [facility] [address] [place], [place] [phone] Deep Pruitt APRN [address] [place] [phone] Social History Tobacco Use Types [...] Answer Date Recorded PHQ-2 Score 2 07/07/2020 [facility] - Occupational Stress [...] documented as of this encounter Care Teams Foreign Language Professor Relationship Specialty Start Date End Date Deep Pruitt APRN PCP - General 05/22/19 documented as of this encounter
--- OUTSIDE RECORDS SUMMARY | 2025-04-07 15:01 | XMS_ITS | Encounter Summary ---
Author Organization [facility] Address [address] [place] [address] Care Team Providers Care Stoner Hand Name Role Phone Deep Pruitt APRN Primary Care Provider Reason for Visit * Reason Comments Medication Refill Encounter Details Date Type Department Care Team ([facility] Contact Info) Description 01/29/2021 Refill [facility] [address] [place], [place] [phone] Deep Pruitt APRN [address] [place] [address] Medication Refill Social History Tobacco [...] Date Recorded PHQ-2 Total Score 6 01/21/2021 [facility] ional [facility] [...] documented as of this encounter Care Teams Stoner Hand Relationship Specialty Start Date End Date Deep Pruitt APRN PCP - General 05/22/19 documented as of this encounter
--- OUTSIDE RECORDS SUMMARY | 2025-04-07 15:01 | XMS_ITS | Encounter Summary ---
Author Organization [employer] Address [address] [facility] 7t [place] [address] Care Team Providers Care Gel Coater Name Role Phone Katrin Santoyo MD Primary Care Pro vider Edison Vieira MD Unavailable [phone] Joe Devi MD Unavailable [phone] Chuy Mcmanus MD Unavailable Sveta Lazaro RN Unavailable [phone] Leslie Kline Unavailable Reason for Visit * Reason Onset Date Comments Referral 04/05/2023 Encounter Details Date Type Department Care Team (Late st Contact Info) Description 04/05/[address] [facility] [address] [place], [place] [phone] Katrin Santoyo MD [address] [place], [place] [phone] Referral Social History Tobacco Use Types Packs/Day [...] Bhardwaj - 04/06/2023 10:27 AM EST Called [facility] for an update and [...] Gastro made on 04/04/2023 sent to [facility], states that they called facility and facility informs that their missing a summary form. Please contact pt at [phone] Turkish Speaker documented in this encounter Plan of Treatment Upcoming Encounters Date Type Department Care Team ([facility] st Contact Info) Description 04/08/2025 10:00 AM EST Office Visit [facility] [address] [place] [address] Katrin Santoyo MD [address] [place] [address] documented as of this encounter Goals Goal [...] documented as of this encounter Care Teams Gel Coater Relationship Specialty Start Date End Date Katrin Santoyo MD [address] [place] [address] PCP - General Internal Medicine 12/13/22 Edison Vieira MD [address] [place] [address] Pulmonary Disease 04/07/24 Joe Devi MD [address] [place] [address] 3rd [place] [address] Gastroenterology 04/07/24 Chuy Mcmanus MD [address] [place] [address] [place] [address] Bariatrics 09/25/24 Sveta Lazaro, CASIE [address] [place] [address] Registered Nurse Family Medicine 11/29/24 Leslie Kline 11/29/24 Craito Roche DNP [address] [facility], [address] [place] [address] Nephrology 04/07/24 [employer] 04/11/24 12/18/24 [facility] 12/14/24 documented as of this encounter
--- OUTSIDE RECORDS SUMMARY | 2025-04-07 15:01 | XMS_ITS | Encounter Summary ---
Author Organization [facility] Address [address] [place] [address] Care Team Providers Care Clip On Sunglasses Assembler Name Role Phone Deep Pruitt APRN Primary Care Provider [phone] Reason for Visit * Reason Comments Medication Refill Encounter Details Date Type Department Care Team ([facility] st Contact Info) Description 10/20/2020 Refill [facility] [address] [place], [place] [phone] Deep Pruitt APRN [address] [place] [address] Medication Refill Social History Tobacco [...] Answer Date Recorded PHQ-2 Score 2 07/07/2020 [facility] - [...] documented as of this encounter Care Teams Clip On Sunglasses Assembler Relationship Specialty Start Date End Date Deep Pruitt APRN PCP - General 05/22/19 documented as of this encounter
--- OUTSIDE RECORDS SUMMARY | 2025-04-07 15:01 | XMS_ITS | Encounter Summary ---
Author Organization [employer] Address [address] [facility] 7t [place] [address] Care Team Providers Care Development Writer Name Role Phone Elise Stanford ORE DRYER Primary Care Provider Victoria Katrin Bustos MD Primary Care Pro vider Edison Vieira MD Unavailable [phone] Joe Devi MD Unavailable [phone] Chuy Mcmanus MD Unavailable Sveta Lazaro RN Unavailable [phone] Leslie Kline Unavailable Reason for Visit * Reason Onset Date Comments Referral 11/24/2022 Podiatry Encounter Details Date Type Department Care Team (Late st Contact Info) Description 11/24/[address] [facility] [address] [place], [place] [phone] Elise Stanford FNP Referral (Podiatry/) Social History [...] Anne Ocasio - 11/29/2022 9:46 AM EDT Spiral Tube Winder re-faxed referral to Dr. Smith's office. Spiral Tube Winder called Dr. Smith's office and confirmed that referral was received. Spiral Tube Winder attempted to call patient twice to infirm that he may call to schedule his appt but did not answer and voicemail could not be left due to pt not having voicemail setup. Dr. Smith [address] [place] [address] FAX [phone] * Telephone Encounter - Elizabeth Melo - 11/24/2022 9:51 AM EDT Tc from patient requesting status on podiatry referral. Spiral Tube Winder provided address and phone number and patient [...] 04/08/2025 10:00 AM EST Office Visit [facility] [address] [place] [address] Katrin Santoyo MD [address] [place] [address] documented as of this encounter Visit Diagnoses Not on filedocumented in this encounter Additional Health Concerns Assessment Noted Time PHQ-9 Depression Total Score: 24 023 2:05 PM EDT documented as of this encounter Care Teams Development Writer Relationship Specialty Start Date End Date Elise Stanford FNP PCP - General Family Medicine 11/24/22 12/12/22 Katrin Santoyo MD [address] [place] [address], [place] [address] PCP - General Internal Medicine 12/13/22 Edison Vieira MD [address] [place] [address] Pulmonary Disease 04/07/24 Joe Devi MD [address] [facility] 3rd [place] [address] Gastroenterology 04/07/24 Chuy Mcmanus MD [address] [place] [address] Bariatrics 09/25/24 Sveta Lazaro, RN [address] [place] [address] Registered Nurse Family Medicine 11/29/24 Leslie Kline 11/29/24 Carito Roche DNP [address] [facility], [address] [place] [address] Nephrology 04/07/24 [employer] 04/11/24 12/18/24 [facility] 12/14/24 documented as of this encounter
--- OUTSIDE RECORDS SUMMARY | 2025-04-07 15:01 | XMS_ITS | Encounter Summary ---
Author Organization [employer] [facility] Address [address] [facility] 7t [place] [address] Care Team Providers Care Aircraft General Repair Mechanic Name Role Phone Elise Stanford Primary Care Provider Victoria Katrin Bustos MD Primary Care Pro vider Edison Vieira MD Unavailable [phone] Joe Devi MD Unavailable [phone] Chuy Mcmanus MD Unavailable Sveta Lazaro RN Unavailable [phone] Leslie Kline Unavailable Encounter Details Date Type Department Care Team (Latest Contact Info) Description 09/04/2018 Abstract [facility] CONVERSIONS Dental, Provider, DDS Social History Tobacco [...] Description 04/08/2025 10:00 AM EST Office Visit [facility] [address] [place], [place] [phone] Katrin Santoyo MD [address] [place], [place] [phone] documented as of this encounter Visit Diagnoses Not on filedocumented in this encounter Care Teams Aircraft General Repair Mechanic Relationship Specialty Start Date End Date Elise Stanford FNP PCP - General Family Medicine 11/24/22 12/12/22 Katrin Santoyo MD [address] [place] [address] PCP - General Internal Medicine 12/13/22 Edison Vieira MD [address] [place] [address] Pulmonary Disease 04/07/24 Joe Devi MD [address] [place] [address] 3rd [place] [address] Gastroenterology 04/07/24 Chuy Mcmanus MD [address] [place] [address] Bariatrics 09/25/24 Sveta Lazaro RN [address] [place] [address] Registered Nurse Family Medicine 11/29/24 Leslie Kline 11/29/24 Carito Roche DNP [address] [place] [address], [address] [place] [address] Nephrology 04/07/24 [employer] 04/11/24 12/18/24 [facility] 12/14/24 documented as of this encounter
--- OUTSIDE RECORDS SUMMARY | 2025-04-07 15:01 | XMS_ITS | Clinical Summary ---
Author Organization [address] Address [address] [place] [phone] Care Team Providers Care Biomedical Service Engineer Name Role Phone Deep Pruitt APRN [...] edema will order Compression sleeves today from [facility] today, Put on lower legs during [...] lancets (ONETOUCH DELICA PLUS LANCET) 30 gauge [facility] lancetsIndicatio ns:Type 2 diabetes mellitus with diabetic [...] of insulin, Duration 99, Feeding difficulty R63.30 17864 mL 06/23/19 Active metFORMIN (GLUCOPHAGE) 1000 mg [...] AM with Arben Fountain DPM at the [facility] -Will f/u with Pt [...] appointment and was informed he can call [phone] to find a closer time Assessment & Plan (02/19/2022 1:59 PM EDT): -The Pt went to his Crinkling Machine Operator and was c/o right kidney pain [...] worse at night - pathway utilized through [facility], patient eligible for molnupiravir, may benefit [...] 15:12 Ref. Range 04/07/2020 SPEP Interpretation Unknown Eyjcj-8-Zrzkgurx Latest Ref Range: 0.2 - 0.3 g/dL 0.3 Eoimy-3-Eqvyozsc Latest Ref Range: 0.5 - 0.9 g/dL 1.1 (H) Interpretation Unknown Comment Only Abnormal Protein Band 2 Latest Ref Range: NONE DETECTED g/dL CANCELED Abnormal Protein Band 3 Latest Ref Range: NONE DETECTED g/dL CANCELED Ympa-4-Ptdmdnap Latest Ref Range: 0.4 - 0.6 g/dL 0.5 Ictu-5-Rnccdbck Latest Ref Range: 0.2 - 0.5 g/dL 0.5 Gamma Globulin Latest Ref Range: 0.8 - 1.7 g/dL 1.1 Abnormal Protein Band 1 Latest Ref Range: NONE DETECTED g/dL CANCELED Protein, Total Latest Ref Range: 6.1 - 8.1 g/dL 7.1 Albumin Latest Ref Range: 3.8 - 4.8 g/dL 3.6 (L) Results for DARREL BHARDWAJ ( ) as of 04/08/2020 17:50 Ref. Range 04/07/2020 Free [place] Latest Ref Range: 3.3 - 19.4 mg/L 35.9 (H) Free Lambda Latest Ref Range: 5.7 - 26.3 mg/L 26.6 (H) Free [place]/Lambda Ratio Latest Ref Range: 0.26 - 1.65 [...] 15:12 Ref. Range 04/07/2020 SPEP Interpretation Unknown Anqcz-8-Vmxnedwm Latest Ref Range: 0.2 - 0.3 g/dL 0.3 Kykgg-5-Dxtykuhn Latest Ref Range: 0.5 - 0.9 g/dL 1.1 (H) Interpretation Unknown Comment Only Abnormal Protein Band 2 Latest Ref Range: NONE DETECTED g/dL CANCELED Abnormal Protein Band 3 Latest Ref Range: NONE DETECTED g/dL CANCELED Okjd-0-Yzdrqjdl Latest Ref Range: 0.4 - 0.6 g/dL 0.5 Znwg-0-Rjsnvojw Latest Ref Range: 0.2 - 0.5 g/dL 0.5 Gamma Globulin Latest Ref Range: 0.8 - 1.7 g/dL 1.1 Abnormal Protein Band 1 Latest Ref Range: NONE DETECTED g/dL CANCELED Protein, Total Latest Ref Range: 6.1 - 8.1 g/dL 7.1 Albumin Latest Ref Range: 3.8 - 4.8 g/dL 3.6 (L) Results for DARREL BHARDWAJ ( ) as of 04/08/2020 17:50 Ref. Range 04/07/2020 Free [place] Latest Ref Range: 3.3 - 19.4 mg/L 35.9 (H) Free Lambda Latest Ref Range: 5.7 - 26.3 mg/L 26.6 (H) Free [place]/Lambda Ratio Latest Ref Range: 0.26 - 1.65 [...] of 04/08/2020 17:50 Ref. Range 04/07/2020 Free [place] Latest Ref Range: 3.3 - 19.4 mg/L 35.9 (H) Free Lambda Latest Ref Range: 5.7 - 26.3 mg/L 26.6 (H) Free [place]/Lambda Ratio Latest Ref Range: 0.26 - 1.65 [...] like to speak with his pcp first [phone] Phone Conversation with Pt over the phone: PCP called kazakh speaking (uncontrolled diabetic) Pt over the phone, [...] Tried to call the Pt using the Danish Interpretor [employer], [employer] ([employer]) was not set up so a voice [...] have CC'd Ricarda Du MD, his primary house painter helper. She has a phone consult [...] all the Pt medication bottle be in kazakh, Pt had a medication (allopurinoL (ZYLOPRIM) 100 mg tablet) error because he can not read in [place], the Pt was prescribed 1/2 tab but [...] next appointment to see me at the hotel front desk clerk Latest Reference Range & Units 09/09/21 12/15/21 BUN 7 - 25 mg/dL 31 (H) 29 (H) Creatinine 0.70 - 1.30 mg/dL 1.40 (H) 1.55 (H) BUN/Creatinine Ratio 6 - 22 (calc) 22.1 19 eGFR (NON -Somali) >60 mL/min/1.73m2 53 eGFR (Afr Amer) >60 [...] Range: 8.0 - 23.0 22.1 eGFR (NON -Somali) Latest Ref Range: >60 mL/min/1.73m2 53 eGFR [...] Taylor Malagon APRN at the Nephrology at [address] [place] [address], The Renal department is working on getting the Pt a 24 hour HTN monitor to assess the effectiveness of his recent medication changes, used kazakh interpretor 9217 07/13/2021 Renal Referral Note: Assessment [...] effectiveness of his recent medication changes, used kazakh interpretor 9217 07/13/2021 Renal Referral Note: Assessment [...] given a referral to talk with the [facility] Liquefaction And Regasification Helper for further assessment of his current diet [...] and magnesium supplements that he said a inventory and pricing associate told him were good for his kidneys. [...] preparation for his first visit with a house painter helper, Ricarda Du MD on 04/07/2020. Assessment & Plan (02/12/2020 2:18 PM EDT): Pt was recently in the hospital for Kidney issues, the Pt missed a previous Kidney appointment and will ask Pt to reschedule another Kidney appointment Date & Time 02/25/2020 10:00 AM Provider Taylor Malagon APRN Department [facility] [address] [facility] Nephrology [address] [facility] [address] Comment: Pt needs a Kidney referral due [...] 23 (H) 23 (H) 14.7 eGFR (NON -Somali) Latest Ref Range: >60 mL/min/1.73m2 76 77 [...] (see MRI of Brain from 2017 under [employer] -Significant deficits on neurologic exam Memory loss and Left handed weakness -Imaging and prior evaluation -Current blood thinning agents is aspirin -Potential details to include, when relevant: poor GAIT, uses a walker to get around -How the diagnosis was made: Pt lived in [facility] at the time, Under Multimedia in [employer] see specific file at specific date [id number] Image MRI Result [facility] - MRI BRAIN CVA -09/25/2016 [id number] Image Evaluation [facility]- Left handed weakness note - 02/20/2017 CT [...] a letter to be given to the [employer] advising stating that the Pt is disabled and needs help with housing Is there a form to be fill out from the [facility] advising that the Pt is disabled and needs help with housing t 03/26/21 Oksana Fox to Deep Pruitt PRODUCTION LEADER Summary: Letters needed by patient This junior copywriter met with patient at the clinic today 03.26.21 per nurses request, to assistance with letters that the patient is requesting. This junior copywriter spoke to patient and patient is [...] Patient is also requesting a letter for [facility] advising that he is disabled. Patient stated that he has already applied for and wants this letter to help him get Housing CCM: 15 minutes 04/11/2021 Deep Pruitt APRN Assessment & Plan (05/31/2020 5:20 PM EST): Pt had a CVA from 2017 and needs Neuro clearance before getting a Colonoscopy Presumed etiology of prior stroke (see MRI of Brain from 2017 under [facility] Significant deficits on neurologic exam Memory loss and Left handed weakness Imaging and prior evaluation Current blood thinning agents is aspirin Potential details to include, when relevant: poor GAIT, uses a walker to get around How the diagnosis was made: Pt lived in [facility] at the time, Under Multimedia in [employer] see specific file at specific date [id number] Image MRI Result [facility] - MRI BRAIN CVA -09/25/2016 [id number] Image Evaluation [facility]- Left handed weakness note - 02/20/2017 Required [...] is working with his Diabetic Specialist at [facility] and has an appointment next week, will increase his Gababentin to 800 mg PO TID which has helped with his neuropathic pain, Spent 25 mins with Pt using the Hospital Fellow Microalbuminuric diabetic nephropathy (HC Code) 09/26/2019 Assessment [...] Ricarda Du MD at the Nephrology at [address] [place] [address] Results for DARREL BHARDWAJ ( ) as [...] ) as of 09/19/2019 07:04 eGFR (NON -Somali) Latest Ref Range: > OR = 60 [...] for Bariatric surgery and Pt needs a coremaking machine setter Assessment & Plan (09/10/2021 5:42 PM EDT): Pt has a BMI of 40.4 and is working with the wellness clinic to work on his weight loss plan, putting a referral in for Bariatric surgery and Pt needs a coremaking machine setter Assessment & Plan (09/26/2019 9:45 AM EDT): Pt has a BMI of 40.4 and is working with the wellness clinic to work on his weight loss plan, putting a referral in for Bariatric surgery and Pt needs a coremaking machine setter Assessment & Plan (09/09/2019 2:47 PM EDT): [...] whole encounter. The interview was conducted in Danish which is my [place] language. I have encouraged Mr. Bhardwaj to contact us with any questions, concerns or clinical changes. Plan: 1. Continue current therapy. 2. No need for supplemental oxygen. Assessment & Plan (12/23/2021 12:10 PM EDT): -The Pt continues to feel like he is constantly SOB and is asking to be put on Oxygen PRODUCTION LEADER -The Pt was given a list of labs to complete and once done then the Pt will be scheduled appointment with his Supervisor Slashing Department -The Pt and the Supervisor Slashing Department will decide together if the pt needs to be on O2 PRODUCTION LEADER or not 08/18/2021 Pulmonary Note: Assessment: Mr. [...] ways in which he can request an residential real estate agent over the phone and I am happy [...] complaints are out of proportion to seemingly barp-fc-lybtnunc asthma and his dyspnea is likely multifactorial. [...] ways in which he can request an residential real estate agent over the phone and I am happy [...] complaints are out of proportion to seemingly mszc-ao-dprnfcma asthma and his dyspnea is likely multifactorial. [...] documentation in collaboration with Dr. Deep Yo. [facility] Quality Initiatives: Tobacco counseling: Patient [...] allergies spent 20 mins with Pt using Danish Interpretor 1674 Assessment & Plan (11/14/2020 11:15 [...] years for colon cancer screening purposes. Used Danish interpretor 8245 Assessment & Plan (06/16/2021 10:23 [...] years for colon cancer screening purposes. Used Danish interpretor 8245 Assessment & Plan (09/13/2020 7:30 [...] years for colon cancer screening purposes. Used Danish interpretor 3293 Assessment & Plan (06/24/2020 4:13 PM EST): Pt was informed of the following message and told to call and was asked to call to make a colonoscopy appointment 06/03/20 12:29 PM Message from [facility] at [address] [place] [address] Called patient to cancel pre colon appointment, patient did not answer and there was no voicemail set up. Attempted to call patient x2 in a row and no answer either time. Patient does not need pre colon appointment, only needs to schedule Colonoscopy. No [employer] [place] message sent because at the time of the call when scheduling the pre colon appointment patient stated he does not know how to use the [employer] [place] application. Pre colon appointment cancelled. Assessment & [...] year ago the Pt had colonoscopy at [facility] in [facility] and was told to return in [...] PATHOLOGY REPORT Patient: DARREL BHARDWAJ MR #: [id number] ([id number]) Submitted by: Hedy Hameed MD STOMACH, BIOPSY [...] disordered breathing. RECOMMENDATIONS / PLAN : -Current [place] [employer] recommendations for treatment of [...] RT talked with Pt Called patient with Danish Interp. Nancy #[id number]. Patient said that he has an old ResMed that he received in [place] He doesn't know his mode or settings. Nor does he know his previous DME Assessment & Plan (09/10/2021 5:40 PM EDT): The Pt has an Sleep Apnea appointment on 09/24/2021 at 4:20 PM with Ryanne Ocasio MD at the [facility] Center at [address] [place] [address] Assessment & Plan (09/24/2019 3:03 PM EDT): [...] spent 45 mins with Pt with a wet chemistry analyst SLEEP STUDY - [facility] - [phone] Assessment & Plan (09/09/2019 3:22 PM EDT): Pt typically sleep 2.5 hours a night, Pt still has to return his sleep apnea machine to [place] before a sleep apnea clinic in [place] will talk to him, Pt has a BMI of 40.4 and PCP will put a referral in for sleep apnea for Pt today, spent 35 mins with Pt with a wet chemistry analyst Diabetic foot (HC Code) 02/07/2019 Assessment & Plan (06/24/2022 9:27 AM EST): The Pt continues to deal with bilateral foot pain and wears a pair of Diabetic shoes with specification ordered by his Supervisor Pleating Doctor Assessment & Plan (05/31/2021 2:00 PM EST): The Pt continues to deal with bilateral foot pain and needs to get a pair of Diabetic shoes with specification ordered by his Supervisor Pleating Doctor and will increase Gabapentin from 400 mg PO BID to 800 PO BID Assessment & Plan (01/04/2021 10:02 AM EDT): - recently seen in mid-December by Podiatry- note reviewed Assessment & Plan (10/14/2020 9:29 AM EDT): The Pt continues to deal with bilateral foot pain and needs to get a pair of Diabetic shoes with specification ordered by his Supervisor Pleating Doctor see below: 08/26/2020 Podiatry Note: Bilateral [...] Also using his neuropathic compounding formula from [employer] as an adjunctive therapy and likes it [...] is working with his Diabetic Specialist at [facility] and has an appointment next week, will increase his Gababentin to 800 mg PO TID and assess effectiveness in one month Assessment & Plan (02/07/2019 6:48 AM EDT): Pt needs a Podiatry appointment due to toe nails need to be cut and Pt needs establish care with a Supervisor Pleating for his annual diabetic foot care Diabetic eye exam (HC Code) 02/07/2019 Assessment & Plan (06/24/2022 9:29 AM EST): The Pt stated today that he saw his Eye Doctor, unable to see event in [facility] Assessment & Plan (09/18/2020 6:10 PM EDT): Pt has complaints of vision changes and he blew a blood vessel on his sclera, 3 years ago the Pt would see his Retina Doctor who did a lazer every 6 month, Pt needs a retinal eye referral 09/18/2020 Jeovanny Lynn: I put a referral in for the Pt and lately the [facility] has not been given dates for [...] doctor per. Patient can be reached at [phone]. Ms. Rosales can be reached at the same number [phone]. Thank you Deep Assessment & Plan (05/28/2020 2:38 PM EST): Used Interpretor 1812, Pt is asking for an Diabetic Eye [...] the Pt needs to call the [facility] [address] [place] [id number] Assessment & Plan (10/14/2020 2:13 PM EDT): [...] (01/04/2019 4:02 PM EDT): Pt needs a Danish speaking Nurse to help him manage his [...] medications -He has been following with the [facility] team and reports taking all of [...] decided to move his family back to [place] area due to being closer to family [...] billing issues. 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 scanner/sensor, but he was [...] (DEXCOM G6 SENSOR) device and scanner Asked Retail Event Coordinator to schedule a 1/2 hour Nurse [...] 200-300 average, checks ACHS -Pt has his [facility] appt on 04/21/2022 at 11:30 AM [...] Pt will continues to go to his [facility] appointments to review his Dexcom G6 numbers and make appropriate medication changes -If all that happens then the Pt can also scan before each meal, switch from taking 30 units of prandial insulin to start a Sliding Scale -Will leave note with Pt's Corporate Director that the Pt needs to have Provider use a Hospital Fellow due to his poor [place] skills -The Pt has received the Dexcom G6 zig zag stitcher and scanner but still does not know [...] Pt will continues to go to his [facility] appointments to review his Dexcom G6 [...] EDT): -Met with Pt and with our [facility] RN who was able to translate [...] 2.Novolog 30 before meals + supplementary sliding [id number]-->4u, 200-249-->6u, 250-299-->8u, 300-349-->10u, >350-->12u 3.continue with trulicity 4.5 mg weekly, jardiance 25 mg daily and metformin 1000 mg bid 4.contact us in 1 week to report BG 5.Check BS 4X/day. Keep organized log and bring it next time. Call [facility] for use of [...] Neuropathy: yes Recommendations: #Diabetes: 1. Continue with [id number] 190u bid 2.Novolog 30 before meals + supplementary sliding scale 150-199--> 4 units 200-249--> 6 units 250-299--> 8 units 300-349--> 10units >350--> 12 3.continue with trulicity 4.5 mg weekly, jardiance 25 mg daily and metformin 1000 mg bid 4.contact us in 1 week to report BG 5.Check BS 4X/day. Keep organized log and bring it next time. Call [facility] for use of [...] his painful foot issues -Will talk with [facility] Nurse about the Pt and support systems may not be compliant with taking meds and Insulin on a regular basis -Will work on bring the Pt's A1C down, it has been in the 11's for the past year and Pt not wanting to see [facility] or [facility] Diabetic Specialist -Will have to set [...] the Bariatric Doctor for weight loss -Used Hospital Fellow # [id number] -Pt wished he could get his diabetic care restarted at the [facility] -Pt does not want to go to [facility] Diabetic Clinic or the [facility] due to not feeling comfortable [...] Pt needs to be rescheduled with our [facility] Diabetic Clinic with Zena Hines PA, the Pt did not like dealing with [facility] due to not feeling comfortable with the [facility] Providers and has had missed multiple appointments The Pt continues to deal with an elevated A1C, Pt wished he could get his diabetic care restarted at the [facility], will refer today Results for DARREL [...] MD sent at 09/30/2021 Regarding: RE: 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 I think this is his 3rd [...] Ocasio MD at the Diabetes Center at [address] [place] [address], Pt wished he could get his diabetic [...] LDL 90 01/25/2021 MALCRR 3,278 (H) 09/16/2019 Outpatient/CARE CLINICIAN meds BLOOD GLUCOSE METER (ONETOUCH VERIO FLEX [...] 1000 mg tablet - continues to see [facility] - recent finger stick readings 350, no symptoms of hyperglycemia - discussed with patient taking medications as prescribed as well as changing diet - recommended to reduce carb intake and simple carbs throughout the day and night and see if fasting glucose improved in morning - plans to see [facility] soon Assessment & Plan (04/23/2021 10:36 AM EST): The Pt continues to work with his [facility] Diabetic Specialist and stated that his Finger sticks range between 98-160, Pt needs to get additional labs to assess kidney fx and his diabetes Assessment & Plan (01/08/2021 1:21 PM EDT): The Pt continues to deal with elevated A1C and sees his Corporate Director on a regular basis Results for [...] and has a f/u appointment with his Corporate Director on 09/29/2020 08/27/2020 Endocrine referral: Assessment [...] his blood sugars. Could also consider insulin business applications manager like pioglitazone at low dose. Discussed treatment [...] Krystle Santos RN Spoke with pharmacist at [facility], states if PCP will send scripts for [...] between 7 or 8 and talked through wet chemistry analyst [id number] that the Pt has to have [...] to 110 and send message to his hand model Isha Carmen APRN with [facility] Assessment & Plan (05/28/2020 3:01 [...] to 105 and send message to his hand model Isha Carmen APRN with [facility] Assessment & Plan (04/08/2020 6:17 [...] the care of Isha Carmen APRN with [facility] and was last prescribed insulin [...] - 64 pg/mL 64.2 74 (H) Vitamin [id number] Latest Ref Range: 20 - 50 ng/mL [...] Diabetic care will be transferred over to [facility] and he has the following appointment: 03/27/2020 11:00 AM with Julia Ceja RD at the Diabetes Center at [address] [facility] Assessment & Plan (02/14/2020 4:56 PM EDT): Patient called and stated he's a diabetic and was advised to speak with his pcp Deep if anything was wrong. He stated he woke up with a small cut in right foot on the small toe. I did offer the CC but stated he would like to speak with his pcp first [phone] (kazakh speaking) Assessment & Plan (11/13/2019 7:10 PM [...] - 22 (calc) 23 (H) eGFR (NON -Somali) Latest Ref Range: > OR = 60 [...] Pt is currently seeing our Diabetic Specialist PRODUCTION LEADER at [facility], talking with PRODUCTION LEADER on phone the Pt has developed an [...] 10, Pt needs to meet with the [facility] Nurse with the goal to bring [...] will continue to see Diabetic Clinic at [facility] for additional medication adjustments and will [...] will continue to see Diabetic Clinic at [facility] and re-evaluate Pt care in one [...] 6-8 weeks to be seen by his special machine operator Dr. Newberry. Attending Addendum: I have seen [...] that he is on this. I contacted [facility] [employer] pharmacy and they reported that on 06/28 [...] be reported today. He to report painful TAYLRO, with not much improvment from previous. BMP [...] and LVM requesting a call back. ID [id number] assisted call. Of note, appears patient was [...] Dr. Newberry and should be visible in [employer]. We would like you to please call [...] pain and dyspnea # h/o CVA (NOT DC -- historical charting error) # Dyslipidemia with [...] pain and dyspnea # h/o CVA (NOT DC -- historical charting error) # Dyslipidemia with [...] basis by his , will ask our [facility] Nurse to call Pt and verify [...] basis by his , will ask our [facility] Nurse to call Pt and verify [...] recent creatinine/potassium from 01/07 stable, recheck in [facility] this week Assessment & Plan (01/04/2021 [...] in one week to manage HTN, used cheese pancake roller 4737, Pt denies experiencing any pain or tightness [...] EST): When the Pt was admitted to [facility] for [facility] they had stopped his Lisinopril [...] medication up weekly, spent 35 min with Hospital Fellow [phone], will f/u with Pt in one month [...] needs to get all his meds in kazakh and has an appointment on 02/24/2020 02/24/2020 3:40 PM Provider Deep Pruitt APRN [facility] Assessment & Plan (02/22/2020 5:19 AM EDT): I see that Losartan help protect the kidneys from damage due to diabetes, I will discontinue the atenolol and start him at Losartan 25 mg and slowly titrate him up and the Pt needs to get all his meds in kazakh and has an appointment on 02/24/2020 02/24/2020 3:40 PM Provider Deep Pruitt APRN [facility] Assessment & Plan (03/16/2019 6:10 [...] following reasons: The patient has a prior DC or stroke diagnosis Assessment & Plan (12/18/2018 [...] to call Pt with results seen below (Danish only please) -And let him know that his UTI results were negative and there is no reason for antibiotics 09/08/2021 PCP Note: Pt c/o burning with urination for the past 2 day, will ask Pt to do a urine culture before prescribing an Antibiotic medication used Danish interpretor 8254 09/10/2021 PCP Addendum Note: The Pt has [...] years ago the Pt had colonoscopy at [facility] and was told to return in a year for further surveillance because he had several polyps removed, the concern is that the Pt had a CVA x 2 in 2017 and need Neuro clearance and the Neuro referral was put in today Assessment & Plan (11/13/2019 7:05 PM EDT): Pt had a Colonoscopy done in [facility] one year ago and was told [...] AM EDT): 01/02/2020 the 49 yo male (Danish speaking only) with a BMI of 39.6, last A1C Dec 2019 increased to 13.7, in 2018 the Pt had a right sided stroke (minimal residual speech and walking issues) and is working with our Diabetic PRODUCTION LEADER Specialist to bring his sugars down, Pt [...] Plan (11/13/2019 7:08 PM EDT): Used a Hospital Fellow 6446 for the entire 25 min visit, Pt [...] with Pt in 1 weeks, used a Hospital Fellow 9039 throughout the visit -10/23/2019 the Pt again [...] with Pt in 2 weeks, used a Hospital Fellow Propio through out the visit Assessment & [...] (H) -Pt will be referred to the [facility] Liquefaction And Regasification Helper to assess if his current diet is [...] Perla Rice RN message to Deep Pruitt PRODUCTION LEADER Call was returned to patient and his [...] input from his primary care physician and house painter helper would be helpful. Considerations would include: stopping amlodipine, increasing diuretics, re-assessing labs for kidney function (e.g. is proteinuria worsening), and dietary interventions. Also counseled patient that weight loss would likely be helpful. I think his profile saw setup operator can be helpful with managing his [...] input from his primary care physician and house painter helper would be helpful. Considerations would include: stopping amlodipine, increasing diuretics, re-assessing labs for kidney function (e.g. is proteinuria worsening), and dietary interventions. Also counseled patient that weight loss would likely be helpful. I think his profile saw setup operator can be helpful with managing his [...] plan for regular follow up with your profile saw setup operator, primary care physician, and house painter helper Follow-up: as needed with me Other interventions: recommend keeping the legs elevated when sitting (try to get feet above the level of the heart to get the fluid to come down; also recommend new pair of custom graduated compression stockings - wear daily - please call [facility] for an appointment to be measured for the new stockings so they fit you well. [facility] [address] [place] [id number] , PCP Notes: Will stop Amlodipine 5 mg PO QD and start Pt on Spirolactone 25 mg PO QD and assess in 2 weeks if Spirlactatone needs to be increased to 25 mg BID Will fax to [employer] order for Compression stocking and put contact info in AVS for the Pt to call and arrange for sizing CCM: 10 minutes 12/29/2020 Deep Pruitt APRN Assessment & Plan (06/24/2020 3:44 PM EST): 06/13/2020 the Pt had 2 pairs of Knee high compression stockings ordered and sent to [facility] and the Pt has to call [facility] so he can be measured and then pick them up when they arrive Assessment & Plan (06/13/2020 7:10 AM EST): Pt continues to deal with bilateral lower extremity edema will order Compression sleeves today from [facility] today, Put on lower legs during the day and take off at night, and wash and let dry and put on 2nd pair on the following day for Edema, lower extremity R60.0, will send to [facility] Assessment & Plan (05/26/2020 5:58 [...] in 2 days at his next appointment Danish Interpretor #[id number] CCM: 20 minutes 05/26/2020 Deep Pruitt APRN [...] The went to his Vascular Referral: Darrel Bhradwaj is a 49 y.o patient with a [...] MD Department Ambulatory Surgical Specialties - Vascular [facility] [address] [place] [address] Assessment & Plan (01/30/2020 4:18 PM EDT): [...] EST): When the Pt was admitted to [facility] for [facility]ICOLAS they had stopped his Lisinopril [...] needs to get all his meds in kazakh, sued wet chemistry analyst Mikhail Lore Administrative encounter 02/07/201909/2020 Assessment & Plan (02/07/2019 7:01 AM EDT): The Pt asked for a [place] State form Medical Report for Person who needs care , with Goal to have 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 More than 4 times [...] Date Recorded PHQ-2 Total Score 2 02/17/2022 [facility] Occupat ional [...] your living situation today? I have a [facility] place to live 05/19/2022 Sex [...] 9:01 AM EDT Screening for prostate cancer ID PROPHYLAXIS - ADULT Routine 08/10/2021 10:45 AM EDT Encounter for dental exam and cleaning w/o abnormal findings ID BITEWINGS - FOUR RADIOGRAPHC IMAGES Routine 07/05/2021 10:30 AM EST Encounter for dental examination ID PERIODIC ORAL EVALUATION EST PT Routine 07/05/2021 10:30 AM EST Encounter for dental examination Oral frictional keratosis Partially edentulous mandible, unspecified edentulism class Secondary dental caries associated with failed or defective dental spiritism Dental caries on smooth surface penetrating into [...] Results * (ABNORMAL) POCT HgbA1c, total CPT: 13574 (06/23/2022 4:21 PM EST) Hemoglobin A1C, POC 10.6 4.0 - 6.0 % [facility] Test Lot Number [id number] [facility] Test Lot Exp Date 09/18/22 Date Format: MM/DD/YYYY [facility] Blood specimen (specimen) 06/23/2022 4:21 PM EST Deep Pruitt APRN POINT OF CARE TEST ORDERABL ES Final Result Performing Organization Address [facility] Co de Phone Number [facility] * (ABNORMAL) LDL cholesterol, [...] Comment Performing Lab: Site ID: [id number] Name: [facility] Address: [address] [place] [address], [place] [address] Director: Yadira Bowman M.D. Deep Pruitt APRN LAB BLOOD ORDERABLES Final Result Performing Organization Address [facility]/ZIP Co de Phone Number [facility] [address] [place] [address] * (ABNORMAL) Albumin/creatinine panel, urine, random (02/15/2022 2:02 PM EDT) Albumin, Urine, Random 1,885.3 Reference Range Not Established mg/L 02/15/2022 3:42 PM EDT [facility] Creatinine, Urine, Random 60 Reference Range Not Established mg/dL 02/15/2022 3:42 PM EDT [facility] Albumin/Creatin ine Ratio, Urine, Random 3,168.6(H ) <30.0 mg/g Cr 02/15/2022 3:42 PM EDT [facility] Comment: Moderately increased albuminuria (formerly microalbuminuria): 30-300 mg/g Cr Significantly increased albuminuria (overt albuminuria): >300 mg/g Cr Urine Collection / Unknown 02/15/2022 2:02 PM EDT 02/15/2022 2:59 PM EDT Yue Dominguez HOUSE PAINTING INSTRUCTOR URINE ORDERABLES Final Res ult [facility] [address] [place] [address] * PSA, total (Q) (09/09/2021 9:01 AM EDT) Pathologist [facility] Prostate Specific Antigen Total 0.44 < OR = 4.00 ng/mL [facility] Comment: The total PSA value from this assay system is standardized against the WHO standard. The test result will be approximately 20% lower when compared to the equimolar-standardized total PSA ([place]). Comparison of serial PSA results should be [...] Comment Performing Lab: Site ID: [id number] Name: [email or web address] Address: [address] [place] [address], [address] [place] [address] Director: Yadira Bowman M.D. us Deep Pruitt APRN LAB BLOOD ORDERABLES Final Result [facility] [address] [place] [address], [facility] * Colonoscopy (09/03/2020 10:16 AM EDT) Colonoscopy [facility] Endoscopy Patient Name: Darrel Bhardwaj Procedure Date: 09/03/2020 10:16 AM Date of : 1970 Age: 50 Admit Type: Outpatient Gender: Male CSN #: [id number] Note Status: Finalized Procedure Date no Time: [...] bowel preparation was evaluated using the BBPS (Morland Bowel Preparation Scale) with scores of: Right [...] for surveillance. Procedure Code(s): --- Professional --- 25959, Colonoscopy, flexible; with biopsy, single or multiple Diagnosis Code(s): --- Professional --- Z86.010, Personal history of colonic polyps D12.0, Benign neoplasm of cecum CPT copyright 2018 [employer]. All rights reserved. The codes documented in this report are preliminary and upon dinkey driver review may be revised to meet current [...] In: 10:41:36 AM Scope Out: 10:58:33 AM [facility] 09/03/2020 10:1 6 AM EDT us Provider Not In System GI PROCEDURE ORDERABLES F inal Result [facility] * Hepatitis C Ab with reflex to HCV PCR (02/06/2020 7:18 AM EDT) Hepatitis C Antibody Negative Negative 02/06/2020 4:21 PM EDT [facility] Comment:A negative [...] APRN LAB BLOOD ORDERABLES Fauzia guzman Result [facility] [address] [place] [address], [facility] [phone] * HIV 1/2 ag/ab, w/reflexes (Q) (12/10/2018 10:32 AM EDT) [facility] HIV Ag/Ab, 4th Generation NON-REACT [...] purpose. For additional information please refer to http://education.tabulate/faq/TVA494 (This link is being provided for informational/ educational purposes only.) The performance of this assay has not been clinically validated in patients less than 2 years old. Blood 12/10/2018 10:3 2 AM EDT 12/10/2018 10:32 AM EDT Carlos Eduardo Joyner MD LAB BLOOD ORDERABLES Fi nal Result [facility] [address] [place] [address] from Last 3 Months or Most Recently Relevant to Health Maintenance Insurance [place] Advance Directives * Full ACLS (Latest Code Status on File) Date Activated Date Inactivated Comments 02/04/2020 9:46 PM 02/07/2020 8:23 PM Question Answer Comments With Whom was the Code Status Discussed? Patient Care Teams Biomedical Service Engineer Relationship Specialty Start Date End Date Deep Pruitt APRN PCP - General 05/22/19
--- OUTSIDE RECORDS SUMMARY | 2025-04-07 15:01 | XMS_ITS | Encounter Summary ---
Author Organization [employer] Address [address] 7[address] [place] [address] Care Team Providers Care Lead Applications Developer Name Role Phone Katrin Santoyo MD Primary Care Pro vider Edison Vieira MD Unavailable [phone] Joe Devi MD Unavailable [phone] Chuy Mcmanus MD Unavailable Sveta Lazaro RN Unavailable [phone] Leslie Kline Unavailable Reason for Visit * Reason Comments Med Refill Encounter Details Date Type Department Care Team (Late st Contact Info) Description 07/10/[address] [facility] [address] [place], [place] [phone] June Jarvis, NILESH [address] [place] [address] Gout due to renal impairment, unspecified chronicity, [...] 04/08/2025 10:00 AM EST Office Visit [facility] [address] [place] [address] Katrin Santoyo MD [address] [place] [address] documented as of this encounter Goals Goal [...] as of this encounter Care Teams Lead Applications Developer Relationship Specialty Start Date End Date Katrin Santoyo MD [address] [place] [address] PCP - General Internal Medicine 12/13/22 Edison Vieira MD [address] [place] [address] Pulmonary Disease 04/07/24 Joe Devi MD [address] [facility] 3rd [place] [address] Gastroenterology 04/07/24 Chuy Mcmanus MD [address] [place], [place] [address], [place] [address] Bariatrics 09/25/24 Sveta Lazaro, CASIE [address] [place] [address] Registered Nurse Family Medicine 11/29/24 Leslie Kline 11/29/24 Carito Roche DNP [address] [facility], [address] [place] [address] Nephrology 04/07/24 [employer] 04/11/24 12/18/24 [facility] 12/14/24 documented as of this encounter
--- OUTSIDE RECORDS SUMMARY | 2025-04-07 15:01 | XMS_ITS | Encounter Summary ---
Author Organization [facility] Address [address] [place] [address] Care Team Providers Care Research Laboratory Technician Name Role Phone Deep Pruitt APRN Primary Care Provider Reason for Visit * Reason Comments Medication Refill Encounter Details Date Type Department Care Team ([facility] st Contact Info) Description 02/01/2021 Refill [facility] [address] [place], [place] [phone] Deep Pruitt APRN [address] [place] [address] Medication Refill Social History Tobacco [...] Date Recorded PHQ-2 Total Score 6 01/21/2021 [facility] of Occupat [...] as of this encounter Care Teams Research Laboratory Technician Relationship Specialty Start Date End Date Deep Pruitt APRN PCP - General 05/22/19 documented as of this encounter
--- OUTSIDE RECORDS SUMMARY | 2025-04-07 15:01 | XMS_ITS | Encounter Summary ---
Author Organization [facility] Address [address] [place] [address] Care Team Providers Care Gripper Attacher Name Role Phone Deep Pruitt APRN Primary Care Provider Reason for Visit * Reason Comments Medication Refill Encounter Details Date Type Department Care Team ([facility] st Contact Info) Description 11/24/2020 Telephone [facility] [address] [place] [address] Deep Pruitt APRN [address] [place] [address] Medication Refill Social History Tobacco [...] of certain medication. Call back number is [phone] (sierra leonean speaking) preferred pharmacy is [facility] [place] [address] [address] documented in this encounter Plan [...]
--- OUTSIDE RECORDS SUMMARY | 2025-04-07 15:01 | XMS_ITS | Encounter Summary ---
Author Organization [employer] Address [address] [facility] 7t [place] [address] Care Team Providers Care Medical Office Technologist Name Role Phone Katrin Santoyo MD Primary Care Pro vider Edison Vieira MD Unavailable [phone] Joe Devi MD Unavailable [phone] Chuy Mcmanus MD Unavailable Sveta Lazaro RN Unavailable [phone] Leslie Kline Unavailable Encounter Details Date Type Department Care Team (Late st Contact Info) Description 06/21/2023 Abstract [facility] [address] [place], [place] [phone] Katrin Santoyo MD [address] [place], [place] [phone] Social History Tobacco Use Types Packs/Day Years [...] Description 04/08/2025 10:00 AM EST Office Visit [facility] [address] [place] [address] Katrin Santoyo MD [address] [place] [address] documented as of this encounter Goals Goal [...] of this encounter Care Teams Medical Office Technologist Relationship Specialty Start Date End Date Katrin Santoyo MD [address] [place] [address] PCP - General Internal Medicine 12/13/22 Edison Vieira MD [address] [place] [address] Pulmonary Disease 04/07/24 Joe Devi MD [address] 3rd [place] [address] Gastroenterology 04/07/24 Chuy Mcmanus MD [address] [place] [address] [place] [address] Bariatrics 09/25/24 Sveta Lazaro, CASIE [address] [place] [address] Registered Nurse Family Medicine 11/29/24 Leslie Kline 11/29/24 Carito Roche DNP [address] [facility], [address] [place] [address] Nephrology 04/07/24 [employer] 04/11/24 12/18/24 [facility] 12/14/24 documented as of this encounter
--- OUTSIDE RECORDS SUMMARY | 2025-04-07 15:01 | XMS_ITS | Clinical Summary ---
Author Organization [facility] Address [address] [facility] [address] [place] [address] Phone Care Team Providers Care Blood Bank Laboratory Technician Name Role Phone Katrin Brumfield Primary Care Provid er Allergies Active Allergy Reactions Criticality Noted Date Comments Amlodipine Swelling Medium 03/28/2021 Pt develops lower leg swelling Penicillin [...] tablet 3 4 Active ergocalciferol 1.25 MG (71378 UT) capsule Take 1 capsule (50,000 Units total) by mouth every Monday and 70 capsule 1 4 Active Alpha-Lipoic Acid 600 MG tablet Take 600 mg by mouth in the morning and 600 mg at noon and 600 mg in the evening. Active amLODIPine (NORVASC) 5 MG tablet Take 5 mg by mouth 1 (one) time each day Active calcitriol (ROCALTROL) 0.25 MCG capsule Take 0.25 mcg by mouth 1 (one) time each day Active Febuxostat (ULORIC) 40 MG tablet Take 40 mg by mouth 1 (one) time each day Active torsemide (DEMADEX) 100 MG tablet Take 100 mg by mouth 1 (one) time each day Active sevelamer carbonate (RENVELA) 800 MG tablet Take 800 mg by mouth in the morning and 800 mg at noon and 800 mg in the evening. Take with meals. Swallow tablet whole; do not crush, break, or chew. Active Active Problems Problem Noted Date Diagnosed [...] (01/25/2023): information and pathology [facility]osp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 01/06/2023 01/25/2023 Edema 01/06/2023 01/25/2023 Gastroesophageal reflux disease 01/06/2023 01/25/2023 Steatotic liver disease 01/06/202301/07 History of heat stroke 01/06/202301/25 Microalbuminuric diabetic [...] AM with Arben Fountain DPM at the [facility] -Will f/u with Pt in a month to check on effectiveness of medications Vaccination needed 03/26/2022 01/25/2023 3 COVID-19 09/29/2021 01/25/2023 01/25/2023 Overview (01/25/2023): Last [...] (see MRI of Brain from 2017 under [facility] Multimedia -Significant deficits on neurologic exam Memory loss and Left handed weakness -Imaging and prior evaluation -Current blood thinning agents is aspirin -Potential details to include, when relevant: poor GAIT, uses a walker to get around -How the diagnosis was made: Pt lived in [facility] at the time, Under Multimedia in Planning Media see specific file at specific date [id number].TIF Image MRI Result [facility] - MRI BRAIN CVA -09/25/2016 [id number].TIF Image Evaluation [facility]- Left handed weakness note - [...] 2019, the Pt needs to call the [facility] [address] [place] [address] Diabetic foot 02/07/2019 01/25/2023 01/25/2023 Overview (01/25/2023): Last Assessment & Plan: The Pt continues to deal with bilateral foot pain and wears a pair of Diabetic shoes with specification ordered by his Customer Service Trainer Doctor Patient encounter status 02/07/2019 01/25/2023 Overview [...] -Pt will be called biweekly by the [facility] Nurse to review his FBS finger sticks [...] medications -He has been following with the [place] [facility] team and reports taking all of [...] Encounters Date Type Department Care Team Description 02/03/2025 Telephone [facility] Vascular Access [address] [place] [address] Codi Noble 01/31/2025 1:00 PM EDT Procedure visit [facility] V[facility] Access [address] [place] [address] Arnoldo Jj MD End stage renal disease (HCC) (Primary Dx) 01/29/2025 Telephone [facility] Vascular Access [address] [place] [address] Sandra Banuelos 01/23/2025 2:30 PM EDT Office Visit [facility] [address] [place] [address] Juvenal Connors MD End stage renal disease (HCC) (Primary Dx); Hypertension; Type 2 diabetes mellitus with diabetic nephropathy (HCC) 01/21/2025 Telephone [facility] Vascular Access [address] [place] [address] Sandra Banuelos from Last 3 Months Immunizations Immunization Administration Dates Next Due Influenza, [...] Sign Reading Time Taken Comments Blood Pressure 158/87 01/31/2025 12:23 PM EDT Pulse 89 01/31/2025 12:23 PM EDT Temperature 36.1 C (97 F) 01/31/2025 12:23 PM EDT Respiratory Rate 16 01/31/2025 12:23 PM EDT Oxygen Saturation 96% 01/31/2025 12:23 PM EDT Inhaled Oxygen Concentration - - Weight 109 kg (240 lb) 01/31/2025 12:23 PM EDT Height 172.7 cm (5' 8 ) 01/31/2025 12:23 PM EDT Body Mass Index 36.49 01/31/2025 12:23 PM EDT Plan of Treatment Upcoming Encounters Date Type Department Care Team (Late st Contact Info) Description 05/22/2025 9:00 AM EST Scheduled Only [facility] Center [address] [place] [address] [place] [address] Health Maintenance Due Date Last Done Comments [...] PCV) 03/24/2023 03/24/2022, 01/21/2021 Diabetes: Hemoglobin A1C 05/20/202502/17/ 025, 01/30/2025, 11/01/2024, Additional history exists Colorectal Cancer Screening: Colonoscopy 01/25/2033 01/25/2023 Pneumococcal Vaccine: Peds ( 0 to 5 Years) and At-Risk Patients (6 to 49 Years) Discontinued 03/24/2022, 01/21/2021 Influenza Vaccine Completed 02/24/2025, , 01/23/2023, Additional [place] exists [place] Care Teams Blood Bank Laboratory Technician Relationship Specialty Start Date End Date Katrin Brumfield [address] [place] [address] PCP - General 04/17/23
--- OUTSIDE RECORDS SUMMARY | 2025-04-07 15:02 | XMS_ITS | Encounter Summary ---
Author Organization [facility] Address [address] [place] [address] Care Team Providers Care Sales Closer Name Role Phone Deep Pruitt APRN Primary Care Provider Encounter Details Date Type Department Care Team ([facility] st Contact Info) Description 06/25/2021 Telephone [facility] [address] [place] [address] Deep Pruitt APRN [address] [place] [address] Social History Tobacco Use Types [...] Date Recorded PHQ-2 Total Score 3 05/31/2021 [facility] Health [...] as of this encounter Care Teams Sales Closer Relationship Specialty Start Date End Date Deep Pruitt APRN PCP - General 05/22/19 documented as of this encounter
--- OUTSIDE RECORDS SUMMARY | 2025-04-07 15:02 | XMS_ITS | Encounter Summary ---
Author Organization [facility] Address [address] [place] [address] Care Team Providers Care Transportation Dispatch Manager Name Role Phone Deep Pruitt APRN Primary Care Provider Reason for Visit * Reason Comments Medication Refill Encounter Details Date Type Department Care Team ([facility] st Contact Info) Description 06/30/2021 Refill [facility] [address] [place], [place] [phone] Deep Pruitt APRN [address] [place] [address] Medication Refill Social History Tobacco [...] as of this encounter Care Teams Transportation Dispatch Manager Relationship Specialty Start Date End Date Deep Pruitt APRN PCP - General 05/22/19 documented as of this encounter
--- OUTSIDE RECORDS SUMMARY | 2025-04-07 15:02 | XMS_ITS | Encounter Summary ---
Author Organization [facility] Address [address] [place] [address] Care Team Providers Care Packing Machine Operator Name Role Phone [place] Valley[place] medina Niko LOPEZ Primary Care Provider [phone] Reason for Visit * Reason Comments Medication Refill Encounter Details Date Type Department Care Team ([facility] st Contact Info) Description 04/07/2021 Refill [facility] [address] [place] [phone] Zena Hines PA [address] [place] [address] Medication Refill Social History Tobacco Use [...] seeing Zena Peoplesurenco for DM management at [facility]. Nate, Katrin documented in this encounter Plan [...] as of this encounter Care Teams Packing Machine Operator Relationship Specialty Start Date End Date Deep Pruitt APRN PCP - General 05/22/19 documented as of this encounter
--- OUTSIDE RECORDS SUMMARY | 2025-04-07 15:02 | XMS_ITS | Encounter Summary ---
Author Organization [facility] Address [address] [place] [address] Care Team Providers Care Sas Analyst Name Role Phone Romelia Pruittian Niko LOPEZ Primary Care Provider Encounter Details Date Type Department Care Team (Late st Contact Info) Description 03/18/2021 Scanned Document [facility] [address] [place] [address] External, Provider Social History Tobacco Use Types [...] documented as of this encounter Care Teams Sas Analyst Relationship Specialty Start Date End Date Deep Pruitt APRN PCP - General 05/22/19 documented as of this encounter
--- OUTSIDE RECORDS SUMMARY | 2025-04-07 15:02 | XMS_ITS | Encounter Summary ---
Author Organization [facility] Address [address] [place] [address] Care Team Providers Care Dovetail Machine Operator Name Role Phone Deep Pruitt APRN Primary Care Provider Encounter Details Date Type Department Care Team (Late st Contact Info) Description 04/08/2021 Lab Requisition [facility] Specimens [address] [place] [address] Isha Brown APRN [address] [place] [address] Persons encountering health services in [...] Date Recorded PHQ-2 Total Score 1 03/24/2021 [facility] of Occupat ional [...] Date/Time Associated Diagnosis Comments BLOOD GAS, ARTERIAL ([facility]) Routine 04/08/2021 12:44 PM EST documented in this encounter Results * (ABNORMAL) Blood gas, arterial () (04/08/2021 12:44 PM EST) pH Arterial 7.37 7.35 - 7.45 units 04/08/2021 12:54 PM [facility] DEPARTMENT OF LABORATORY MEDICINE pCO2, Arterial 49(H) 32 - 48 mmHg 04/08/20 21 12:54 PM [facility] DEPARTMENT OF LABORATORY MEDICINE pO2, Arterial 65(L) 83 - 108 mmHg 04/08/2021 12:54 PM [facility] DEPARTMENT OF LABORATORY MEDICINE O2 Sat, Arterial 89(L) 94 - 98 % 04/08/20 12:54 PM [facility] DEPARTMENT OF LABORATORY MEDICINE Calculated HCO3, Arterial 27.5 21.0 - 28.0 mmol/L 04/08/2021 12:54 PM [facility] DEPARTMENT OF LABORATORY MEDICINE Base Excess, Arterial 2 -2 - 3 mmol/L 04/08/2021 12:54 PM [facility] DEPARTMENT OF LABORATORY MEDICINE Patient Temperature 37.0 Celsius 04/08/2021 12:54 PM EST [facility] DEPARTMENT OF LABORATORY MEDICINE FIO2 21 % 04/08/2021 12:54 PM EST [facility] DEPARTMENT OF LABORATORY MEDICINE Blood, Arterial 04/08/2021 1 2:44 PM EST 04/08/2021 12:45 PM EST Isha Brown DIRECTOR OF PLANNING LAB BLOOD ORDERABL ES Final Result Performing Organization Address [facility]/State/[facility] de Phone Number [facility] DEPARTMENT OF LABORATORY MEDICINE [address] [place] [address] documented in this encounter Visit Diagnoses Diagnosis [...] documented as of this encounter Care Teams Dovetail Machine Operator Relationship Specialty Start Date End Date Deep Pruitt APRN PCP - General 05/22/19 documented as of this encounter
--- OUTSIDE RECORDS SUMMARY | 2025-04-07 15:02 | XMS_ITS | Encounter Summary ---
Author Organization [facility] Address [address] [place] [address] Care Team Providers Care Countersinker Balance Screw Hole Name Role Phone Deep Pruitt APRN Primary Care Provider Reason for Visit * Reason Comments Medication Refill Encounter Details Date Type Department Care Team ([facility] st Contact Info) Description 09/17/2020 Refill [facility] [address] [place] [address] Deep Pruitt APRN [address] [place] [phone] Medication Refill Social History Tobacco Use [...] documented as of this encounter Care Teams Countersinker Balance Screw Hole Relationship Specialty Start Date End Date Deep Pruitt APRN PCP - General 05/22/19 documented as of this encounter
--- OUTSIDE RECORDS SUMMARY | 2025-04-07 15:02 | XMS_ITS | Encounter Summary ---
Author Organization [facility] Address [address] [place] [address] Care Team Providers Care Senior Production Planner Name Role Phone Sonal Deep Niko LOPEZ Primary Care Provider [phone] Reason for Visit * Reason Comments Medication Refill Encounter Details Date Type Department Care Team ([facility] st Contact Info) Description 05/03/2021 Refill [facility] [address] [place] [phone] Aliya Pond, [address] [address] Medication Refill Social History Tobacco [...] 0 04/21/2021 [facility] of Occupat ional [...] as of this encounter Care Teams Senior Production Planner Relationship Specialty Start Date End Date Deep Pruitt APRN PCP - General 05/22/19 documented as of this encounter
--- OUTSIDE RECORDS SUMMARY | 2025-04-07 15:02 | XMS_ITS | Encounter Summary ---
Author Organization [facility] Address [address] [place] [address] Care Team Providers Care Telecommunications Field Engineer Name Role Phone Deep Pruitt JOHN Primary Care Provider [phone] Reason for Visit * Reason Comments Medication Refill Encounter Details Date Type Department Care Team (Late st Contact Info) Description 05/12/2021 Refill [facility] Podiatry at [address] [place] [phone] Arben Fountain, NOLVIA [address] [place] [address] Medication Refill Social History Tobacco [...] Date Recorded PHQ-2 Total Score 0 04/21/2021 [facility] [...] as of this encounter Care Teams Telecommunications Field Engineer Relationship Specialty Start Date End Date Deep Pruitt APRN PCP - General 05/22/19 documented as of this encounter
--- OUTSIDE RECORDS SUMMARY | 2025-04-07 15:02 | XMS_ITS ---
Author Organization [employer] Address [address] [facility] 7t [place] [address] Care Team Providers Care Preassembler And Inspector Name Role Phone Katrin Santoyo MD Primary Care Pro vider Edison Vieira MD Unavailable [phone] Joe Devi MD Unavailable [phone] Chuy Mcmanus MD Unavailable Sveta Lazaro RN Unavailable [phone] Leslie Kline Unavailable [facility] Complex Status:Outreach In Progress (Enrolling) Start date:11/29/2024 Enrollment reason:ADT Feed Overview ADT-[facility] ED 11/28/24. Please outreach for enrollment. Case Team Name Relationship Phone Leslie Kline(Responsible Staff) [phone] Continued Care and Services Coordination
--- OUTSIDE RECORDS SUMMARY | 2025-04-07 15:02 | XMS_ITS | Encounter Summary ---
Author Organization [facility] Address [address] [place] [address] Care Team Providers Care Redye Hand Name Role Phone Deep Pruitt APRN Primary Care Provider Reason for Visit * Reason Comments Medication Refill Encounter Details Date Type Department Care Team ([facility] st Contact Info) Description 03/10/2021 Refill [facility] [address] [place] [address] Deep Pruitt APRN [address] [place] [address] Medication Refill Social History Tobacco Use [...] Date Recorded PHQ-2 Total Score 2 03/10/2021 [facility] of Occupat ional Health [...] documented as of this encounter Care Teams Redye Hand Relationship Specialty Start Date End Date Deep Pruitt APRN PCP - General 05/22/19 documented as of this encounter
--- OUTSIDE RECORDS SUMMARY | 2025-04-07 15:02 | XMS_ITS | Encounter Summary ---
Author Organization [facility] Address [address] [place] [address] Care Team Providers Care Hebrew Professor Name Role Phone Deep Pruitt JOHN Primary Care Provider Reason for Visit * Reason Comments Medication Refill Encounter Details Date Type Department Care Team (Late st Contact Info) Description 05/06/2021 Refill [facility] Podiatry at [address] [place] [phone] Arben Fountain, NOLVIA [address] [place] [address] Medication Refill Social History Tobacco [...] Recorded PHQ-2 Total Score 0 04/21/2021 [facility] - [...] documented as of this encounter Care Teams Hebrew Professor Relationship Specialty Start Date End Date Deep Pruitt APRN PCP - General 05/22/19 documented as of this encounter
--- OUTSIDE RECORDS SUMMARY | 2025-04-07 15:02 | XMS_ITS | Encounter Summary ---
Author Organization [facility] Address [address] [place] [address] Care Team Providers Care Student Assistant Name Role Phone Deep Pruitt APRN Primary Care Provider Encounter Details Date Type Department Care Team ([facility] st Contact Info) Description 06/21/2022 Scanned Document [facility] [address] [place], [place] [phone] Deep Pruitt APRN [address] [place] [address] Social History Tobacco Use Types [...] your living situation today? I have a [employer] [facility] to live 05/19/2022 Sex and Gender [...] documented as of this encounter Care Teams Student Assistant Relationship Specialty Start Date End Date Deep Pruitt APRN PCP - General 05/22/19 documented as of this encounter
--- OUTSIDE RECORDS SUMMARY | 2025-04-07 15:02 | XMS_ITS ---
Author Organization [employer] Address [address] [facility] 7t [place] [address] Care Team Providers Care Professor Of Graphic Design Name Role Phone Katrin Santoyo MD Primary Care Pro vider Edison Vieira MD Unavailable Joe Devi MD Unavailable [phone] Chuy Mcmanus MD Unavailable Sveta Lazaro RN Unavailable [phone] Leslie Kline Unavailable CM Complex Status:Outreach In Progress (Enrolling) Start date:11/29/2024 Enrollment reason:ADT Feed Overview ADT-[facility] ED 11/28/24 Case Team Name Relationship Phone Sveta Lazaro RN(Responsible Staff) Registered Nurse [phone] Continued Care and Services Coordination
--- OUTSIDE RECORDS SUMMARY | 2025-04-07 15:02 | XMS_ITS | Encounter Summary ---
Author Organization [facility] Address [address] [place] [address] Care Team Providers Care Brim Plater Name Role Phone Deep Pruitt APRN Primary Care Provider Reason for Visit * Reason Comments Medication Refill Encounter Details Date Type Department Care Team ([facility] st Contact Info) Description 03/20/2021 Refill [facility] [address] [place] [address] Deep Pruitt APRN [address] [place] [phone] Medication Refill Social History Tobacco Use [...] Date Recorded PHQ-2 Total Score 1 03/24/2021 [facility] of Occupat ional [...] documented as of this encounter Care Teams Brim Plater Relationship Specialty Start Date End Date Deep Pruitt APRN PCP - General 05/22/19 documented as of this encounter
--- OUTSIDE RECORDS SUMMARY | 2025-04-07 15:02 | XMS_ITS | Encounter Summary ---
Author Organization [facility] Address [address] [place] [address] Care Team Providers Care Automobile Lights Assembler Name Role Phone Sonal Deep Niko LOPEZ Primary Care Provider [phone] Reason for Visit * Reason Comments Medication Refill Encounter Details Date Type Department Care Team ([facility] st Contact Info) Description 04/07/2021 Refill [facility] [address] [place] [phone] Aliya Pond, [address] [address] Medication Refill Social History Tobacco [...] Date Recorded PHQ-2 Total Score 1 03/24/2021 [facility] of Occupat ional [...] as of this encounter Care Teams Automobile Lights Assembler Relationship Specialty Start Date End Date Deep Pruitt APRN PCP - General 05/22/19 documented as of this encounter
--- OUTSIDE RECORDS SUMMARY | 2025-04-07 15:02 | XMS_ITS | Encounter Summary ---
Author Organization [facility] Address [address] [place] [address] Care Team Providers Care Implementation Manager Name Role Phone Deep Pruitt APRN Primary Care Provider Encounter Details Date Type Department Care Team (Late st Contact Info) Description 06/11/2021 Documentation [facility] [address] [facility], 2nd floor [facility], [address] [place], [place] [phone] Isha Brown APRN [address] [place] [address] Social History Tobacco Use Types [...] Recorded PHQ-2 Total Score 3 05/31/2021 [facility] of Occupat ional Health [...] documented as of this encounter Care Teams Implementation Manager Relationship Specialty Start Date End Date Deep Pruitt APRN PCP - General 05/22/19 documented as of this encounter
--- OUTSIDE RECORDS SUMMARY | 2025-04-07 15:02 | XMS_ITS | Encounter Summary ---
Author Organization [facility] Address [address] [place] [address] Care Team Providers Care Global Marketing Operations Manager Name Role Phone Sonal Deep Niko LOPEZ Primary Care Provider [phone] Reason for Visit * Reason Comments Medication Refill Encounter Details Date Type Department Care Team ([facility] st Contact Info) Description 05/05/2021 Refill [facility] [address] [place] [phone] Aliya Pond, [address] [address] Medication Refill Social History Tobacco [...] Total Score 0 04/21/2021 [facility] of Occupat ional Health - [...] as of this encounter Care Teams Global Marketing Operations Manager Relationship Specialty Start Date End Date Deep Pruitt APRN PCP - General 05/22/19 documented as of this encounter
--- OUTSIDE RECORDS SUMMARY | 2025-04-07 15:02 | XMS_ITS | Encounter Summary ---
Author Organization [facility] Address [address] [place] [address] Care Team Providers Care Director Field Services Name Role Phone Sonal Deep Niko LOPEZ Primary Care Provider [phone] Reason for Visit * Reason Comments Medication Refill Encounter Details Date Type Department Care Team ([facility] st Contact Info) Description 05/10/2021 Refill [facility] [address] [place] [phone] Aliya Pond, [address] [address] Medication Refill Social History Tobacco [...] Date Recorded PHQ-2 Total Score 0 04/21/2021 [facility] of Occupat ional Health - [...] as of this encounter Care Teams Director Field Services Relationship Specialty Start Date End Date Deep Pruitt APRN PCP - General 05/22/19 documented as of this encounter
--- OUTSIDE RECORDS SUMMARY | 2025-04-07 15:02 | XMS_ITS | Encounter Summary ---
Author Organization [facility] Address [address] [place] [address] Care Team Providers Care Order Picker/Assembler Name Role Phone Sonal Deep Niko LOPEZ Primary Care Provider [phone] Reason for Visit * Reason Comments Medication Refill Encounter Details Date Type Department Care Team ([facility] st Contact Info) Description 04/12/2021 Refill [facility] [address] [place] [phone] Aliya Pond, [address] [address] Medication Refill Social History [...] Date Recorded PHQ-2 Total Score 1 03/24/2021 [facility] of Occupat ional Health [...] documented as of this encounter Care Teams Order Picker/Assembler Relationship Specialty Start Date End Date Deep Pruitt APRN PCP - General 05/22/19 documented as of this encounter
--- OUTSIDE RECORDS SUMMARY | 2025-04-07 15:03 | XMS_ITS | Encounter Summary ---
Author Organization [facility] Address [address] [place] [address] Care Team Providers Care Abrading Machine Tender Name Role Phone Deep Pruitt Niko LOPEZ Primary Care Provider Reason for Visit * Reason Onset Date Comments Medication Refill 09/22/2021 Encounter Details Date Type Department Care Team (Late st Contact Info) Description 09/22/2021 Refill [facility] [address] [facility] [address] [place] [phone] Zena Hines PA [address] [place] [phone] Medication Refill Social History Tobacco Use [...] Total Score 5 09/14/2021 [facility] Health - Occupational Stress Questionnaire Answer [...] is no longer seeing Zena Sanchezco at [facility] for DM mangement. Katrin Sullivan documented in [...] documented as of this encounter Care Teams Abrading Machine Tender Relationship Specialty Start Date End Date Deep Pruitt APRN PCP - General 05/22/19 documented as of this encounter
--- OUTSIDE RECORDS SUMMARY | 2025-04-07 15:03 | XMS_ITS | Encounter Summary ---
Author Organization [facility] Address [address] [place] [address] Care Team Providers Care Vice President Risk Management Name Role Phone Deep Pruitt APRN Primary Care Provider Reason for Visit * Reason Onset Date Comments Medication Refill 10/12/2021 Encounter Details Date Type Department Care Team (Late st Contact Info) Description 10/12/2021 Refill [facility] at [address] [place] [address] Anahi Rossi, JOHN [address] [place] [address] Medication Refill Social History Tobacco [...] of this encounter Care Teams Vice President Risk Management Relationship Specialty Start Date End Date Deep Pruitt APRN PCP - General 05/22/19 documented as of this encounter
--- OUTSIDE RECORDS SUMMARY | 2025-04-07 15:03 | XMS_ITS | Encounter Summary ---
Author Organization [facility] Address [address] [place] [address] Care Team Providers Care Cello Teacher Name Role Phone Deep Pruitt APRN Primary Care Provider Reason for Visit * Reason Comments Medication Problem Encounter Details Date Type Department Care Team ([facility] Contact Info) Description 10/11/2021 Telephone [facility] [address] [place] [address] Deep Pruitt APRN [address] [place] [address] Medication Problem Social History Tobacco [...] 10/12/2021 [facility] of Occupat ional Health [...] 08 of October Spoke to sissy via assembling machine operator #[id number] (patti) patient states she spoke to the [...] if patient medication can be resent to [facility] [place] [place] - [address] . Best contact: [phone] documented in this encounter Plan of Treatment Not on file documented as of this encounter Visit Diagnoses Not on filedocumented in this encounter Additional Health Concerns Infection Onset Date Last Indicated Resolved Time COVID-19 09/29/2021 09/29/2021 10/19/2021 7:19 PM EDT Assessment Noted Time PHQ-9 Depression Total Score: 0 10/08/19 22 1:27 PM EDT documented as of this encounter Care Teams Cello Teacher Relationship Specialty Start Date End Date Deep Pruitt APRN PCP - General 05/22/19 documented as of this encounter
--- OUTSIDE RECORDS SUMMARY | 2025-04-07 15:03 | XMS_ITS | Encounter Summary ---
Author Organization [facility] Address [address] [place] [address] Care Team Providers Care Glass Vial Bending Conveyor Feeder Name Role Phone [place] Niko LOPEZ Primary Care Provider Encounter Details Date Type Department Care Team (Late st Contact Info) Description 02/19/2020 Scanned Document [facility] [address] [place], [place] [phone] Arben Fountain, NOLVIA [address] [place] [address] Social History Tobacco Use Types [...] Recorded PHQ-2 Score 2 10/02/2019 [facility] of Occupat ional Health - Occupational Stress [...] as of this encounter Care Teams Glass Vial Bending Conveyor Feeder Relationship Specialty Start Date End Date Deep Pruitt APRN PCP - General 05/22/19 documented as of this encounter
--- OUTSIDE RECORDS SUMMARY | 2025-04-07 15:03 | XMS_ITS | Encounter Summary ---
Author Organization [facility] [employer] [facility] and [facility] Address [address] [place] [address] Care Team Providers Care Information Director Name Role Phone Deep Pruitt APRN Primary Care Provider Reason for Visit * Reason Onset Date Comments Medication Refill 09/20/2021 Encounter Details Date Type Department Care Team (Late st Contact Info) Description 09/20/2021 Refill [facility] at [address] [facility] [address] [facility] 2nd [place] [address] Ricarda Du MD [address] [place] [phone] Medication Refill Social History Tobacco Use Types [...] Score 5 09/14/2021 [facility] [...] as of this encounter Care Teams Information Director Relationship Specialty Start Date End Date Deep Pruitt APRN PCP - General 05/22/19 documented as of this encounter
--- OUTSIDE RECORDS SUMMARY | 2025-04-07 15:03 | XMS_ITS | Encounter Summary ---
Author Organization [facility] [employer] [facility] and [facility] Address [address] [place] [address] Care Team Providers Care Soa Engineer Name Role Phone Deep Pruitt APRN Primary Care Provider Reason for Visit * Reason Onset Date Comments Medication Refill 09/30/2021 Encounter Details Date Type Department Care Team (Late st Contact Info) Description 09/30/2021 Refill [facility] at [phone] [facility] 2nd [place] [address] Kaity Harris, MOLD WASHER [address] [place] [phone] Medication Refill Social History Tobacco Use Types [...] 09/14/2021 [facility] of Occupat ional [facility] [...] documented as of this encounter Care Teams Soa Engineer Relationship Specialty Start Date End Date Deep Pruitt APRN PCP - General 05/22/19 documented as of this encounter
--- OUTSIDE RECORDS SUMMARY | 2025-04-07 15:03 | XMS_ITS | Encounter Summary ---
Author Organization [employer] Address [address] [facility] 7t [place] [address] Care Team Providers Care Production Supervisor Off Shift Name Role Phone Katrin Santoyo MD Primary Care Pro vider Edison Vieira MD Unavailable [phone] Joe Devi MD Unavailable [phone] Chuy Mcmanus MD Unavailable Sveta Lazaro RN Unavailable [phone] Leslie Kline Unavailable Encounter Details Date Type Department Care Team (Late st Contact Info) Description 02/17/2025 Orders Only [facility] [address] [place], [place] [phone] Juen Jarvis, ANP [address] [place], [place] [phone] Social History Tobacco Use Types Packs/Day Years [...] Description 04/08/2025 10:00 AM EST Office Visit [facility] [address] [place] [address] Katrin Santoyo MD [address] [place] [phone] documented as of this encounter Goals Goal [...] as of this encounter Care Teams Production Supervisor Off Shift Relationship Specialty Start Date End Date Katrin Santoyo MD [address] [place] [address] PCP - General Internal Medicine 12/13/22 Edison Vieira MD [address] [place] [address] Pulmonary Disease 04/07/24 Joe Devi MD [address] [place] [address] 3rd [place] [address] Gastroenterology 04/07/24 Chuy Mcmanus MD [address] [place] [address] [place] [address] Bariatrics 09/25/24 Sveta Lazaro, RN [address] [place] [address] Registered Nurse Family Medicine 11/29/24 Leslie Kline 11/29/24 Craito Roche DNP [address] [place] [address], [address] [place] [address] Nephrology 04/07/24 [facility] 12/14/24 documented as of this encounter
--- OUTSIDE RECORDS SUMMARY | 2025-04-07 15:03 | XMS_ITS | Encounter Summary ---
Author Organization [facility] [employer] and [facility] Address [address] [place] [phone] Care Team Providers Care Water Meter Mechanic Name Role Phone Deep Pruitt APRN Primary Care Provider Reason for Visit * Reason Onset Date Comments Medication Refill 09/22/2021 Encounter Details Date Type Department Care Team (Late st Contact Info) Description 09/22/2021 Refill [facility] [address] [facility] [address] [facility] [address] [place] [address] Kaity Harris, DOWNSTREAM BIOMANUFACTURING TECHNICIAN [address] [place] [phone] Medication Refill Social History Tobacco Use Types [...] [facility] [...] documented as of this encounter Care Teams Water Meter Mechanic Relationship Specialty Start Date End Date Deep Pruitt APRN PCP - General 05/22/19 documented as of this encounter
--- OUTSIDE RECORDS SUMMARY | 2025-04-07 15:03 | XMS_ITS | Encounter Summary ---
Author Organization [facility] Address [address] [place] [address] Care Team Providers Care Cnc Mechanic Name Role Phone Deep Pruitt APRN Primary Care Provider Reason for Visit * Reason Comments Other Appointment Encounter Details Date Type Department Care Team ([facility] Contact Info) Description 10/07/2021 Telephone [facility] [address] [place] [address] Deep Pruitt APRN [address] [place] [address] Other; Appointment Social History Tobacco [...] Date Recorded PHQ-2 Total Score 0 10/07/2021 [facility] [...] after dropped call ,patient has virtual appt [phone] documented in this encounter Plan of Treatment Not on file documented as of this encounter Visit Diagnoses Not on filedocumented in this encounter Additional Health Concerns Infection Onset Date Last Indicated Resolved Time COVID-19 09/29/2021 09/29/2021 10/19/2021 7:19 PM EDT Assessment Noted Time PHQ-9 Depression Total Score: 0 10/08/19 22 1:27 PM EDT documented as of this encounter Care Teams Cnc Mechanic Relationship Specialty Start Date End Date Deep Pruitt APRN PCP - General 05/22/19 documented as of this encounter
--- OUTSIDE RECORDS SUMMARY | 2025-04-07 15:03 | XMS_ITS | Clinical Summary ---
Author Organization [employer] Address [address] [facility] [address] [place] [address] Care Team Providers Care Professional Model Name Role Phone Katrin Santoyo MD Primary Care Pro vider Edison Vieira MD Unavailable [phone] Joe Devi MD Unavailable [phone] Chuy Mcmanus MD Unavailable Sveta Lazaro RN Unavailable [phone] Leslie Kline Unavailable Allergies Active Allergy [...] bedtime 023 Active Blood Glucose Monitoring Suppl (Bitbar Anna Lite) w/Device kitIndications: Type 2 diabetes mellitus [...] MINI PEN NEEDLES 31G X 5 MM [facility] Use as instructed 100 each 11 Active albuterol (2.5 MG/3ML) 0.083% nebulizer solutionIndicat ions:Moderate persistent asthma without complication Take 3 mL (2.5 mg) by nebulization every 4 (four) hours if needed for wheezing. 75 mL 3 024 Active FT Lubricant Eye Drops 0.5 % ophthalmic solution INSTILL 1 DROP IN EACH EYE NEEDED DRY EYES 30 each 1 Active Nebulizers [facility] Use nebulizer as instructed 1 each Active [...] sugar 3 times daily 100 each 12 2025 Active FREESTYLE LITE test stripIndication s:Diabetes [...] Once per day. 90 tablet 1 Active Aspirin Low Dose 81 MG chewable tablet CHEW 1 TABLET BY MOUTH ONCE DAILY EVERY MORNING 90 tablet 1 025 2024 Discontinued ezetimibe (Zetia) 10 MG tablet TAKE 1 TABLET BY MOUTH EVERY DAY IN THE MORNING 90 tablet 1 025 2024 Discontinued atorvastatin (Lipitor) 80 MG tablet TAKE 1 TABLET BY MOUTH EVERY DAY 90 tablet 1 025 2024 Discontinued amLODIPine (Norvasc) 5 MG tablet TAKE 1 TABLET BY MOUTH EVERY DAY 90 tablet 1 025 2024 Discontinued(R eorder (will not [...] 01/13/2025 Anemia in ESRD (end-stage renal disease) ([facility]/ C) 01/13/2025 ESRD (end stage renal disease) on dialysis ([facility]/ [facility]) 12/26/2024 Moderate cognitive impairment 12/26/2024 Chronic pancreatitis, unspec ified pancreatitis type ([facility]) 08/22/2024 Skin pruritus 08/22/2024 Lipoma 07/10/2024 Assessment & Plan (07/10/2024 2:47 PM EST): I refer patient to surgery Long-term current use of opiate analgesic 2023 Overview (08/13/2024): Medication: Tramadol 50mg Q8H PRN Indication: chronic radicular lumbar pain Last DIRECTOR COMMUNICATIONS Agreement: 04/02/24 Additional considerations: BZO from [...] Continues on 2L oxygen - Followed by [facility] Pulm - Dr. Vieira Right foot pain [...] lesions. Secondary dental caries 10/23/2023 Fractured dental adventism without loss of mat erial 10/23/2023 Alkaline [...] topical analgesics after discussion with [facility] Pharmacist - meds sent to pharmacy [...] appt 01/2023 Dental: Refer pt [facility] on 12/13/22 Moderate persistent asthma 11/07/2022 Overview (11/07/2022): -The Pt saw Pulmonology in [place] 2028905/21/2021 -stable with the use of Advair and [...] Will focus on improving diabetic control Discuss lime vat tender referral at next visit F/u 1 month [...] disordered breathing. RECOMMENDATIONS / PLAN : -Current [employer] recommendations for treatment of [...] S on 17/10 cm. - Following with [facility] Pulmonology - Dr. Vieira - Encouraged to [...] him that it is not a long term care phlebotomist med. He will fu w PCP next [...] (12/09/2022): information and pathology of colonospcy in [facility] 09-09-2020 note Hyperlipidemia due to [...] 02/07/2019 01/23/2023 Schizoaffective disorder, de pressive type ([facility]) 01/14/2019 05/17/2023 Hypertension 12/10/2018 12/13/2022 Assessment & Plan (12/09/2022 12:54 PM EDT): Refill for losartan sent at patient's request Encounters Date Type Department Care Team Description 03/28/[address] [facility] MEDICINE [address] [place] [phone] Katrin Santoyo MD Appointment Request 03/25/2025 Orders Only [facility] MEDICINE [address] [place] [phone] ProviderAbdullahi MD 03/11/[address] [facility] WALK[facility]IN [facility] [address] [place] [phone] Katrin Santoyo MD 03/11/[address] [facility] [address] [place] [phone] Jairo Matt MD 02/25/2025 1:00 PM EDT Office Visit [facility] [address] [place] [phone] Vivian Hoyt MD RUQ pain (Primary Dx) 02/25/2025 Orders Only GENERIC EXTERNAL DATA DEPARTMENT Provider, Generic External Data 02/25/[address] [facility] MEDICINE [address] [place] [phone] Vivian Hoyt MD 02/25/2025 Travel 02/25/[address] [address] Katrin Santoyo MD Durable Medical Equipment (Home ventilator) 02/20/[address] [address] Karen Luis, CASIE 02/19/[address] [address] Katrin Santoyo MD Ofice note fax over 02/17/2025 2:45 PM EDT Office Visit [address] [address] Nupur Couch FNP Preop examination (Primary Dx); Diabetes mellitus, labile ([facility]); Obstructive sleep apnea; Primary hypertension; ESRD (end stage renal disease) on dialysis ([facility]) ([facility]) 02/17/2025 Orders Only [facility] MED[facility]INE [address] [place] [phone] June Jarvis ANP 02/17/2025 Travel 02/03/[address] [address] Katrin Santoyo MD 01/29/[address] [address] Katrin Santoyo MD Pre-op Exam 01/24/[address] [address] Katrin Santoyo MD Chronic radicular lumbar pain 01/14/2025 1:20 PM EDT Office Visit [facility] [address] [place] [phone] Katrin Leroy MD Acute bilateral low back pain without sciatica; Pain of left hip; Acute pain of right knee 01/14/2025 Travel 01/14/[address] [phone] Katrin Santoyo MD Nurse Triage 01/14/[address] [address] Katrin Santoyo MD FYI 01/14/2025 Patient Outreach [address] [address] Katrin Santoyo MD Care Management (C3CM- initial assessment/ enrollment. Not available.) 01/13/2025 Patient Outreach [address] [address] Katrin Santoyo MD Care Coordination (CM/CHW appt reminder) 01/08/2025 Patient Outreach [address] [address] Katrin Santoyo MD from Last 3 Months [...] 02/25/2025 12:59 PM EDT Plan of Treatment Upcoming Encounters Date Type Department Care Team (Late st Contact Info) Description 04/08/2025 10:00 AM EST Office Visit [facility] MEDICINE [address] [place] [address] Katrin Santoyo MD [address] [place] [address] Health Maintenance Due Date Last Done Comments CT Colonography 1970 Colonoscopy 1970 Colorectal Cancer Screening 1970 FIT DNA/Cologuard 1970 FIT 1970 FOBT 1970 Sigmoidoscopy 1970 Hepatitis A Vaccines (1 of 2 - Risk 2-dose series) 1989 Dental Oral Exam 02/15/2019 08/15/2018 Dental Prophylaxis 03/07/2019 09/04/2018 Dental X-Ray: Bitewings 08/17/2019 08/15/2018 RSV Patients and Patients Aged 60 years or older (1 - Risk 50-74 years 1-dose series) 2020 Zoster Vaccines (1 of 2) 2020 Eye Exam 07/01/2020 07/01/2019 COVID-19 Vaccine ( season) 2025 02/01/2024, 04/14/2021, 08/28/2020, Additional history exists Diabetes: Hemoglobin A1C 05/20/2025 025, 11/01/2024, 08/22/2024, Additional history exists Depression Monitoring 08/19/2025 02/18/2025, 025 Lipid Panel 10/07/2025 10/07/2024, 0508/2023, 05/17/2023, Additional history exists Diabetes: Foot Exam 10/14/2025 10/14/2024, 10/14/2024, 02/12/2024, Additional history exists Alcohol/Substance Use Screening 11/01/2025 11/01/2024 Disability Screening 11/01/2025 11/01/2024 SDOH Screening 11/01/2025 11/01/2024 Tobacco Screening 02/25/2026 02/25/2025 Dental X-Ray: Full Mouth 11/01/2026 11/01/2023, 08/06 DTaP/Tdap/Td Vaccines (3 - Td or Tdap) 03/24/2032 03/24/2022, 10/05/2016 Hepatitis B Vaccines Completed 04/05/2017, 10/05/2016, 08/17/2016 Pneumococcal Vaccine: 50+ Years Completed 03/24/2022, 03/24/2022, 01/21/2021 HIV Screening Completed 10/07/2024, 12/06/2022 Hepatitis C Screening Completed 10/07/2024, 023 Influenza Vaccine Completed 02/24/2025, , 01/23/2023, Additional history exists HIB Vaccines Aged Out [...] 7.1( 2:58 PM EDT) No Eve Guzman PharmYarely Help patients manage their type 2 diabetes Care Plan Help patients manage their type 2 diabetes No Lewis Abdi Weekly blood pressure task Care Plan Weekly blood pressure task No Lewis Abdi Help patients manage their type 2 diabetes Care Plan Help patients manage their type 2 diabetes No Lewis Abdi Patient has chronic kidney disease Care Plan Patient has chronic kidney disease No Lewis bAdi Help patients manage their type 2 diabetes Care Plan Help patients manage their type 2 diabetes No Lewis Abdi Patient has diabetic neuropathy Care Plan Patient has diabetic neuropathy No Lewis Abdi Weekly blood pressure task Care Plan Weekly blood pressure task No Lewis Abdi Weekly blood pressure task Care Plan Weekly blood pressure task No Abdi, Lewis Patient has chronic kidney disease Care Plan Patient has chronic kidney disease No Abdi, Lewis Patient has chronic kidney disease Care Plan Patient has chronic kidney disease No Abdi, Lewis Patient has diabetic neuropathy Care Plan Patient has diabetic neuropathy No Abdi, Lewis Patient has diabetic neuropathy Care Plan Patient has diabetic neuropathy No Abdi, Lewis Procedures Procedure Name Priority Date/Time Associated Diagnosis Comments US VENOUS DUPLEX LE RT Routine 1:27 PM EST PULMONARY FUNCTION TESTING Routine 03/25/2025 PULMONARY FUNCTION TESTING Routine 03/25/2025 CT ABDOMEN PELVIS WO CONTRAST Routine 02/25/2025 [...] Acute bilateral low back pain without sciatica HEPATITIS C AB W/REFL TO HCV RNA, [...] Relevant to Health Maintenance Results * US VENOUS DUPLEX LE RT (04/07/2025 1:27 PM EST) Anatomical Region Laterality Modality Abdomen Ultrasound 04/07/2025 1:27 PM EST Narrative 04/07/2025 2:15 PM EST [place] [address] Ultrasound Report Signed Patient: Darrel Hagan MR#: [id number] : 1970 Acct:[id number] Age/Sex: 54 / M ADM Date: 04/07/25 Loc: HO.ED Attending Dr: Ordering Physician: Pooja Liz NP Date of Service: 04/07/25 Procedure(s): US venous duplex LE RT Accession Number(s): [id number] cc: Katrin Santoyo MD; Pooja Liz NP [...] reflect joint effusion versus Conway's cyst. Performing italian lecturer favored joint effusion in real-time imaging. Soft [...] by: Ozzie Barajas MD 04/07/2025 02:12 PM [facility] Dictated By: Ozzie Barajas MD Signed By: <Electronically signed by Ozzie Barajas MD in OV> 04/07/25 1412 DD/ 1327 TD/TT: 04/07/25 1339 Track And Field Coach: AGUSTIN Procedure Note Donotuseinterpreter, Image - 04/07/[address] [address] Ultrasound Report Signed Patient: Darrel HaganMR#: [id number] : 1970Acct:[id number] Age/Sex: 54 / MADM Date: 04/07/25 Loc: HO.ED Attending Dr: Ordering Physician: Pooja Liz NP Date of Service: 04/07/25 Procedure(s): US venous duplex LE RT Accession Number(s): [id number] cc: Katrin Santoyo MD; Pooja Liz NP [...] reflect joint effusion versus Conway's cyst. Performing italian lecturer favored joint effusion in real-time imaging. Soft [...] by: Ozzie Barajas MD 04/07/2025 02:12 PM [facility] Dictated By: Ozzie Barajas MD Signed By: <Electronically signed by Ozzie Barajas MD in OV> 04/07/25 1412 DD/ 1327 TD/TT: 04/07/25 1339 Track And Field Coach: AGUSTIN us [facility] External Provider IMG US PROCEDURES Final Result * Pulmonary function testing (03/25/2025) Historical Provider MD PFT ORDERABLES Final Res ult * Pulmonary function testing (03/25/2025) Historical Provider MD PFT ORDERABLES Final Res ult * CT Abdomen Pelvis w/o Contrast (02/25/2025 10:40 PM EDT) Anatomical Region Laterality Modality Body, Pelvis, Abdomen Computed T omography 02/25/2025 10:4 0 PM EDT Narrative 02/25/2025 10:40 PM EDT [place] [address] CT Scan Report Signed Patient: Darrel Hagan MR#: [id number] : 1970 Acct:[id number] Age/Sex: 54 / M ADM Date: 02/25/25 Loc: HO.ED Attending Dr: Ordering Physician: Yuridia Godfrey Date of Service: 02/25/25 Procedure(s): CT abdomen pelvis wo IV con Accession Number(s): [id number] cc: Yuridia Godfrey; Katrin Santoyo MD Report Number: [id number]: Total DLP = 794.00 mGy-cm Reason for Exam: right flank pain, renal colic? CLINICAL HISTORY: right flank pain, renal colic? CT abdomen and pelvis without contrast Comparison: CT/REG/SR - CT ABDOMEN PELVIS WO IV CON - 06/22/23 16:28 EST Findings: Esophageal mural thickening possibly related to degree of underdistention. Ill-defined patchy ground-glass nodular consolidations in the leox-ebfxuqp-qcgc-right lungs. Tiny calcified granuloma splenic dome. Gynecomastia. [...] Ill-defined patchy ground-glass nodular consolidations in the qlqn-qwodfpa-jmvq-right lungs. Correlation for pneumonia advised. 2. Circumferential [...] in OV> 02/25/252239 DD/ 39 TD/TT: 02/25/252239 Track And Field Coach: Procedure Note Donotuseinterpreter, Image - 02/25/[address] [place] [address] [address] Scan Report Signed Patient: Darrel Hagan#: [id number] : 1970Acct:[id number] Age/Sex: 54 / MADM Date: 02/25/25 Loc: HO.ED Attending Dr: Ordering Physician: Yuridia Godfrey Date of Service: 02/25/25 Procedure(s): CT abdomen pelvis wo IV con Accession Number(s): [id number] cc: Yuridia Godfrey; Katrin Santoyo MD Report Number: [id number]: Total DLP = 794.00 mGy-cm Reason for Exam: right flank pain, renal colic? CLINICAL HISTORY: right flank pain, renal colic? CT abdomen and pelvis without contrast Comparison: CT/REG/SR - CT ABDOMEN PELVIS WO IV CON - 06/22/23 16:28 EST Findings: Esophageal mural thickening possibly related to degree of underdistention. Ill-defined patchy ground-glass nodular consolidations in the edno-lczhhld-lxhk-right lungs. Tiny calcified granuloma splenic dome. Gynecomastia. [...] Ill-defined patchy ground-glass nodular consolidations in the pfjm-hcvyxli-rwtt-right lungs. Correlation for pneumonia advised. 2. Circumferential [...] in OV> 02/25/252239 DD/ 39 TD/TT: 02/25/252239 Track And Field Coach: [facility] External Provider IMG CT PROCEDURES Final Result * High Sensitivity Troponin I (02/25/2025 9:27 PM EDT) Only the most recent of2 resultswithin the time period is included. TROPONIN I HIGH SENSITIVITY 21.6 <3.5 - 35.0 ng/L [facility] Comment:The [place] high sens itivity Troponin-I results should beused in conjunction with other diagnostic information suchas ECG, clinical observations and information, and patientsymptoms to aid in the diagnosis of CT. 02/25/2025 9:27 PM EDT 02/25/2025 9:29 PM EDT us Generic External Data Provider LAB BLOOD ORDERAB LES Final Result Performing Organization Address [facility]/ZIP Co de Phone Number [facility] [address] [place] [address] [phone] * (ABNORMAL) Urinalysis, Complete, with Reflex to Culture (02/25/2025 8:15 PM EDT) Color Urine Yellow [facility] Appearance Urine Clear [facility] PH 7.0 5.0 - 9.0 [facility] Glucose Urine UA >=1000(A) Negative mg/dL [facility] Urine Blood Trace(A) Negative [facility] Specific [place] - Urine 1.020 1.005 - 1.025 [facility] Urine Protein >=1000 (4+)(A) Neg-Trace mg/dL [facility] Urine Ketones Negative Negative mg/dL [facility] Nitrite Urine Negative Negative [facility] Leukocyte Esterase Urine Negative Negative [facility] RBC Urine 0-2 0 - 2 /HPF [facility] Urine WBC 0-5 0 - 5 /HPF [facility] Urine Squamous Epithelial Cell 0-2 0 - 2 /HPF [facility] Urine Bacteria None Seen None Seen [facility] Hyaline Casts, Urine 0-2 0 - 2 /LPF [facility] 02/25/2025 8:15 PM EDT 02/25/2025 8:17 PM EDT Narrative [facility] - 02/25/2025 8:26 PM EDT [id number], Clean Catch Generic External Data Provider LAB URINE ORDERAB LES Final Result Performing Organization Address [facility]/ZIP Co de Phone Number [facility] [address] [place] [address] [phone] * Ethanol (02/25/2025 4:27 PM EDT) ETHANOL (MG/DL) IN SER/PLAS <10 mg/dL [facility] Comment:Serum/plasma ethanol results are to be used formedical/treatment purposes only. 02/25/2025 4:27 PM EDT 02/25/2025 4:37 PM EDT us Generic External Data Provider LAB BLOOD ORDERAB LES Final Result [facility] [address] [place], [place] [phone] * (ABNORMAL) CBC auto differential (02/25/2025 4:27 PM EDT) Pathologist [facility] White Blood Count 14.5(H) 4.8 - 10.8 X10*3/uL [facility] Red Blood Count 4.12(L) 4.60 - 5.80 X10*6/uL [facility] Hemoglobin 11.9(L) 14.0 - 18.0 g/dl [facility] Hematocrit 37.2(L) 42.0 - 52.0 % [facility] Mean Corpuscular Volume 90.3 80.0 - 98.0 fL [facility] Mean Corpuscular Hemoglobin 28.9 27.0 - 33.0 pg [facility] Mean Corpuscular HGB Conc 32.0 31.0 - 36.0 g/dl [facility] Red Cell Distribution Width 14.4 11.0 - 16.0 % [facility] Platelet Count 339 160 - 400 X10*3/uL [facility] Mean Platelet Volume 11.7 9.4 - 12.4 fL [facility] Neutrophils Percent Auto 65.0 45 - 73 % [facility] Imm Gran Pct Auto 0.3 0.0 - 0.4 % [facility] Lymphocytes Percent Auto 16.8(L) 20 - 40 % [facility] Monocytes Percent Auto 9.9 2 - 11 % [facility] Eosinophils Percent Auto 7.4(H) 0 - 4 % [facility] Basophils Percent Auto 0.6 0 - 2 % [facility] NRBC Pct Auto 0.0 0.0 - 0.2 /100WBC [facility] Neutrophils Absolute Auto 9.4(H) 2.0 - 8.3 x10*3/uL [facility] Imm Gran Abs Auto 0.05(H) 0.00 - 0.03 X10*3/uL [facility] Lymphocytes Absolute Auto 2.4 1.2 - 4.9 X10*3/uL [facility] Monocytes Absolute Auto 1.4(H) 0.1 - 1.2 X10*3/uL [facility] Eosinophils Absolute Auto 1.1(H) 0.0 - 0.4 X10*3/uL [facility] Basophils Absolute Auto 0.1 0.0 - 0.2 X10*3/uL [facility] NRBC Abs Auto 0.000 0.0 - 0.012 X10*3/uL [facility] 02/25/2025 4:27 PM EDT 02/25/2025 4:37 PM EDT us Generic External Data Provider LAB BLOOD ORDERAB LES Final Result Performing Organization Address [facility]/ZIP Co de Phone Number [facility] [address] [place] [address] [phone] * Lipase (02/25/2025 4:27 PM EDT) Lipase 67 8 - 78 U/L [facility] 02/25/2025 4:27 PM EDT 02/25/2025 4:37 PM EDT us Generic External Data Provider LAB BLOOD ORDERAB LES Final Result Performing Organization Address [facility]/ZIP Co de Phone Number [facility] [address] [place] [address] [phone] * (ABNORMAL) Comprehensive Metabolic Panel (02/25/2025 4:27 PM EDT) Sodium 139 135 - 145 mmol/L [facility] Potassium 4.6 3.3 - 5.1 mmol/L [facility] Chloride 105 96 - 108 mmol/L [facility] Carbon Dioxide 24 22 - 29 mmol/L [facility] Anion Gap 15 12 - 20 [facility] Urea Nitrogen (BUN) 40(H) 9 - 16 mg/dL [facility] Creatinine, Serum 7.17(HH) 0.5 - 1.4 mg/dL [facility] Comment:Critical value for t est(s): CREAT Results called to agatha back by: ADRIEN Person calling: VIKKI Date:02/25/25 Time: 1706 Creatinine Clr Calc Pharmacy 13.5 [facility] Comment:eGFR (calculated fro m the MDRD study equation) and eCrCl(calculated from the Cockcroft-Gault equation) are based ondifferent parameters and may not yield comparable results.If eCrCl result is absurd, please check patient'sheight/weight. Estimated Glomerular Filt Rate 8 [facility] Comment:Chronic Kidney Disea se: Estimated GFR < 60 mL/min/1.85d9Dfleze Kidney Disease: Estimated GFR < 15 mL/min/1.73m2 Glucose 180(H) 60 - 115 mg/dL [facility] Calcium 9.6 8.4 - 10.2 mg/dL [facility] Bilirubin, Total 0.3 0.0 - 1.0 mg/dL [facility] Aspartate Amino Transferase 18 5 - 37 U/L [facility] Alanine Aminotransferase 12 0 - 40 U/L [facility] Total Protein 7.3 6.5 - 8.0 g/dL [facility] Albumin Level 3.9 3.5 - 5.0 g/dL [facility] Alkaline Phosphatase 143(H) 39 - 117 U/L [facility] 02/25/2025 4:27 PM EDT 02/25/2025 4:37 PM EDT Generic External Data Provider LAB BLOOD ORDERAB LES Final Result [facility] [address] [place] [address] [phone] * (ABNORMAL) POCT Glucose (02/17/2025 4:42 PM EDT) Only the most recent of2 resultswithin the time period is included. Glucose Blood, POC 500(A) 60 - 200 mg/dL Comment:[facility] QC Media Lot # [id number] Lot# Expiration Date 126 Blood Capillary blood specimen / Unknown 02/17/2025 4:42 PM EDT [facility] POINT OF CARE TEST ENTER/EDIT ORDERABLES Final [...] Urine (Urine, Random) 02/17/2025 4:07 PM EDT [facility] POINT OF CARE TEST ENTER/EDIT ORDERABLES Final Result * (ABNORMAL) POCT Hgb A1c (02/17/2025 2:58 PM EDT) Hemoglobin A1C 7.1(A) 4.0 - 5.7 % QC Media Lot # [id number] Lot# Expiration Date [id number] Blood 02/17/2025 2:58 PM EDT us Nupur Couch WELDING INSTRUCTOR POINT OF CARE TEST ENTER/EDIT ORDERABLES Final Result * XR Knee 4+ Views Right (01/14/2025 2:15 PM EDT) Anatomical Region Laterality Modality Lower Extremities, Knee Right Radiogra phic Imaging 01/14/2025 2:15 PM EDT Narrative 01/14/2025 2:44 PM EDT [facility] [address] [place] [address] XRay Report Signed Patient: Darrel Hagan MR#: [id number] : 1970 Acct:[id number] Age/Sex: 54 / M ADM Date: 01/14/25 Loc: HO.HHCX Attending Dr: Katrin Kong MD Ordering Physician: Katrin Leroy MD Date of Service: 01/14/25 Procedure(s): XR knee RT 4V Accession Number(s): [id number] cc: Katrin Leroy MD Reason for Exam: [...] 01/14/25 1442 DD/ 1415 TD/TT: 01/14/25 1430 Track And Field Coach: Procedure Note Donotuseinterpreter, Image - 01/14/[address] [address] XRay Report Signed Patient: Darrel HaganMR#: [id number] : 1970Acct:[id number] Age/Sex: 54 / MADM Date: 01/14/25 Loc: HO.HHCX Attending Dr: Katrin Kong MD Ordering Physician: Katrin Leroy MD Date of Service: 01/14/25 Procedure(s): XR knee RT 4V Accession Number(s): [id number] cc: Katrin Leroy MD Reason for Exam: [...] 01/14/25 1442 DD/ 1415 TD/TT: 01/14/25 1430 Track And Field Coach: us Katrin Kong MD IMG XR PROCEDURES Fin al Result * XR Hip 2 or 3 Views Left (01/14/2025 2:10 PM EDT) Anatomical Region Laterality Modality Lower Extremities, Hip Left Radiograp hic Imaging 01/14/2025 2:10 PM EDT Narrative 01/14/2025 2:47 PM EDT [address] [address] XRay Report Signed Patient: Darrel Hagan MR#: [id number] : 1970 Acct:[id number] Age/Sex: 54 / M ADM Date: 01/14/25 Loc: HO.HHCX Attending Dr: Katrin Kong MD Ordering Physician: Katrin Leroy MD Date of Service: 01/14/25 Procedure(s): XR hip LT min 2V Accession Number(s): [id number] cc: Katrin Leroy MD Reason for Exam: [...] 01/14/25 1443 DD/ 1410 TD/TT: 01/14/25 1430 Track And Field Coach: Procedure Note Donotuseinterpreter, Image - 01/14/[address] [address] XRay Report Signed Patient: Darrel HaganMR#: [id number] : 1970Acct:[id number] Age/Sex: 54 / MADM Date: 01/14/25 Loc: HO.ALICECX Attending Dr: Katrin Kong MD Ordering Physician: Katrin Leroy MD Date of Service: 01/14/25 Procedure(s): XR hip LT min 2V Accession Number(s): [id number] cc: Katrin Leroy MD Reason for Exam: [...] 01/14/25 1443 DD/ 1410 TD/TT: 01/14/25 1430 Track And Field Coach: Katrin Kong MD IMG XR PROCEDURES Fin al Result * XR Lumbar Spine 2-3 Views (01/14/2025 2:09 PM EDT) Anatomical Region Laterality Modality Spine, L-spine Radiographic Cierra ging 01/14/2025 2:09 PM EDT Narrative 01/14/2025 2:48 PM EDT [address] [address] XRay Report Signed Patient: Darrel Hagan MR#: [id number] : 1970 Acct:[id number] Age/Sex: 54 / M ADM Date: 01/14/25 Loc: HO.HHCX Attending Dr: Katrin Kong MD Ordering Physician: Katrin Leroy MD Date of Service: 01/14/25 Procedure(s): XR lumbar spine 2-3V Accession Number(s): [id number] cc: Katrin Leroy MD Reason for Exam: [...] 01/14/25 1445 DD/ 1409 TD/TT: 01/14/25 1430 Track And Field Coach: Procedure Note Donotuseinterpreter, Image - 01/14/[address] [address] XRay Report Signed Patient: Darrel HaganMR#: [id number] : 1970Acct:[id number] Age/Sex: 54 / MADM Date: 01/14/25 Loc: HO.HHCX Attending Dr: Katrin Kong MD Ordering Physician: Katrin Leroy MD Date of Service: 01/14/25 Procedure(s): XR lumbar spine 2-3V Accession Number(s): [id number] cc: Katrin Leroy MD Reason for Exam: [...] 01/14/25 1445 DD/ 1409 TD/TT: 01/14/25 1430 Track And Field Coach: us Katrin Kong MD IMG XR PROCEDURES Fin al Result * Hepatitis C Antibody with Reflex to HCV, RNA, Quantitative, Real-Time PCR (10/07/2024 12:53 PM EDT) Hepatitis C Antibody Nonreactive Nonreactive [facility] Comment:Antibodies to HCV no t detected; does not exclude early acuteHCV infection. Blood Venous blood specimen / Unknown 10/07/2024 12:53 PM EDT 10/07/2024 4:04 PM EDT us Katrin López MD LAB BLOOD ORDERAB LES Final Result [facility] [address] [place] [phone] * HIV-1/2 Antigen and Antibodies, Fourth Generation, with Reflexes (10/07/2024 12:53 PM EDT) HIV AB/AG Nonreactive Nonreactive [facility] Comment:HIV-1 p24 Ag and/or HIV-1/HIV-2 Ab not detected.A test result that is nonreactive does not exclude thepossibility of exposure to or infection with HIV-1 and/orHIV-2. Nonreactive results in this assay for individualswith prior exposure to HIV-1 and/or HIV-2 may be due toantigen and antibody levels that are below the limit ofdetection of this assay.The [employer] HIV Ag/Ab Combo assay result andsupplemental assay results should be interpreted inconjunction with the patient's clinical presentation,history and other laboratory results. If the results areinconsistent with clinical evidence, additional testing issuggested to confirm the result. Blood Venous blood specimen / Unknown 10/07/2024 12:53 PM EDT 10/07/2024 4:04 PM EDT us Katrin Lópze MD LAB BLOOD ORDERAB LES Final Result [facility] [address] [place] [phone] * (ABNORMAL) Lipid Panel, Standard (10/07/2024 12:53 PM EDT) Triglycerides 209(H) <150 mg/dL [facility] Comment:Desirable Triglyceri de: less than 150 mg/dLBorderline High Triglyceride 150-199 mg/dLHigh Triglyceride: 200-499 mg/dLVery High Triglyceride: greater than or equal to 5OO mg/dL Cholesterol 295(H) <200 mg/dL [facility] Comment:Desirable Cholestero l: less than 200 mg/dLBorderline High Cholesterol: 200-239 mg/dLHigh Cholesterol: greater than 239 mg/dL LDL Cholesterol Calculated 197(H) <100 mg/dL [facility] Comment:Desirable LDL: less than 100 mg/dLNear Optimal/Above Optimal LDL: 110- 129 mg/dLBorderline High LDL: 130-159 mg/dLHigh LDL: 160-189 mg/dLVery High LDL: greater than or equal to 190 mg/dL HDL Cholesterol 57 >40 mg/dL [facility] Comment:Desirable HDL: great er than 40 mg/dL Note: This HDL assay may give artificially low results in patients with liver disease. Blood Venous blood specimen / Unknown 10/07/2024 12:53 PM EDT 10/07/2024 4:04 PM EDT us Katrin López MD LAB BLOOD ORDERAB LES Final Result [facility] [address] [place] [phone] from Last 3 Months or Most Recently Relevant to Health Maintenance Additional Health Concerns Active Problems Noted Date Diagnosed Date Help patients manage their type 2 diabetes 03/28 Weekly blood pressure task 03/28/2025 Help patients manage their type 2 diabetes 03/28 Patient has chronic kidney disease 03/28/2025 Help patients manage their type 2 diabetes 03/28 Patient has diabetic neuropathy 03/28/2025 Weekly blood pressure task 03/28/2025 Weekly blood pressure task 03/28/2025 Patient has chronic kidney disease 03/28/2025 Patient has chronic kidney disease 03/28/2025 Patient has diabetic neuropathy 03/28/2025 Patient has diabetic neuropathy 03/28/2025 Insurance [facility] MEDICAID [facility] ADULT Care Teams Professional Model Relationship Specialty Start Date End Date Katrin Santoyo MD [address] [place] [phone] PCP - General Internal Medicine 12/13/22 Edison Vieira MD [address] [place] [address] Pulmonary Disease 04/07/24 Joe Devi MD [address] [place] [address] [address] [place] [address] Gastroenterology 04/07/24 Chuy Mcmanus MD [address] [place] [address] Bariatrics 09/25/24 Sveta Lazaro, CASIE [address] [place] [address] Registered Nurse Family Medicine 11/29/24 Leslie Kline 11/29/24 Carito Roche DNP [address] [facility], [address] [place] [address] Nephrology 04/07/24 [facility] 12/14/24
--- OUTSIDE RECORDS SUMMARY | 2025-04-07 15:03 | XMS_ITS | Encounter Summary ---
Author Organization [facility] Address [address] [place] [address] Care Team Providers Care Ccu Nurse Name Role Phone GuytonDeep medina Niko LOPEZ Primary Care Provider Encounter Details Date Type Department Care Team (Late st Contact Info) Description 02/19/2020 Scanned Document [facility] [address], [place] [phone] Arben Fountain, NOLVIA [address] [place] [address] Social History Tobacco Use Types [...] Date Recorded PHQ-2 Score 2 10/02/2019 [facility] [place] of Occupat ional Health - Occupational Stress [...] documented as of this encounter Care Teams Ccu Nurse Relationship Specialty Start Date End Date Deep Pruitt APRN PCP - General 05/22/19 documented as of this encounter
--- OUTSIDE RECORDS SUMMARY | 2025-04-07 15:03 | XMS_ITS | Encounter Summary ---
Author Organization [facility] [employer] [facility] Address [address] [place] [address] Care Team Providers Care Beaver Trapper Name Role Phone Deep Pruitt APRN Primary Care Provider [phone] Reason for Visit * Reason Onset Date Comments Medication Refill 09/30/2021 Encounter Details Date Type Department Care Team (Late st Contact Info) Description 09/30/2021 Refill [facility] [address] [facility] [address] [facility] 2nd [place] [address] Rubin Valderrama, [facility] [address] [place] [phone] Medication Refill Social History Tobacco Use Types [...] Recorded PHQ-2 Total Score 5 09/14/2021 [facility]at [facility] [...] today, but unknown at home. Defer to [facility] pharmacy team for antihypertensive management. [...] documented as of this encounter Care Teams Beaver Trapper Relationship Specialty Start Date End Date Deep Pruitt APRN PCP - General 05/22/19 documented as of this encounter
--- OUTSIDE RECORDS SUMMARY | 2025-04-07 15:03 | XMS_ITS | Encounter Summary ---
Author Organization [facility] Address [address] [place] [address] Care Team Providers Care Information Technology Security Manager Name Role Phone Deep Pruitt APRN Primary Care Provider Reason for Visit * Reason Comments Other Advice Only Encounter Details Date Type Department Care Team ([facility] Contact Info) Description 09/28/2021 Telephone [facility] [address] [place] [address] Deep Pruitt APRN [address] [place] [address] Other; Advice Only Social History [...] be given because his underlying condition. Patient [phone] documented in this encounter Plan of Treatment Not on file documented as of this encounter Visit Diagnoses Not on filedocumented in this encounter Additional Health Concerns Infection Onset Date Last Indicated Resolved Time COVID-19 09/29/2021 09/29/2021 10/19/2021 7:19 PM EDT Assessment Noted Time PHQ-9 Depression Total Score: 7 09/15/19 22 10:31 AM EDT documented as of this encounter Care Teams Information Technology Security Manager Relationship Specialty Start Date End Date Deep Pruitt APRN PCP - General 05/22/19 documented as of this encounter
--- OUTSIDE RECORDS SUMMARY | 2025-04-07 15:03 | XMS_ITS | Encounter Summary ---
Author Organization [facility] Address [address] [place] [address] Care Team Providers Care Plastic Surgeon Name Role Phone TruchasRomeliaDeep Niko LOPEZ Primary Care Provider Reason for Visit * Reason Onset Date Comments Medication Refill 10/12/2021 Encounter Details Date Type Department Care Team (Late st Contact Info) Description 10/12/2021 Refill [facility] [address] [place] [address] Cecile One[place], DMD [address] [place] [address] Medication Refill Social History Tobacco [...] [facility]ational Stress Questionnaire Answer Date [...] as of this encounter Care Teams Plastic Surgeon Relationship Specialty Start Date End Date Deep Pruitt APRN PCP - General 05/22/19 documented as of this encounter
--- OUTSIDE RECORDS SUMMARY | 2025-04-07 15:03 | XMS_ITS | Encounter Summary ---
Author Organization [facility] Address [address] [place] [address] Care Team Providers Care Lecturer In Computer Science Name Role Phone Deep Pruitt JOHN Primary Care Provider Reason for Visit * Reason Onset Date Comments Medication Refill 10/12/2021 Encounter Details Date Type Department Care Team (Late st Contact Info) Description 10/12/2021 Refill [facility] Nutrition at [address] [phone] Angie Mcghee MD [address] [place] [phone] Medication Refill Social History Tobacco Use Types [...] documented as of this encounter Care Teams Lecturer In Computer Science Relationship Specialty Start Date End Date Deep Pruitt APRN PCP - General 05/22/19 documented as of this encounter
--- OUTSIDE RECORDS SUMMARY | 2025-04-07 15:03 | XMS_ITS | Encounter Summary ---
Author Organization [facility] Address [address] [place] [address] Care Team Providers Care Automation Sales Manager Name Role Phone Deep Pruitt APRN Primary Care Provider Reason for Visit * Reason Comments Medication Refill Encounter Details Date Type Department Care Team ([facility] st Contact Info) Description 03/08/2021 Refill [facility] [address] [place], [place] [phone] Deep Pruitt APRN [address] [place] [address] Medication Refill Social History Tobacco [...] as of this encounter Care Teams Automation Sales Manager Relationship Specialty Start Date End Date Deep Pruitt APRN PCP - General 05/22/19 documented as of this encounter
--- OUTSIDE RECORDS SUMMARY | 2025-04-07 15:03 | XMS_ITS | Encounter Summary ---
Author Organization [facility] [employer] [facility] Address [address] [place] [address] Care Team Providers Care Physical Therapist Center Manager Name Role Phone Deep Pruitt APRN Primary Care Provider Reason for Visit * Reason Onset Date Comments Medication Refill 10/12/2021 Encounter Details Date Type Department Care Team (Late st Contact Info) Description 10/12/2021 Refill [facility] [address] [facility] [address] [facility] 2nd [place] [address] Taylor Malagon, [facility] [address] [place] [phone] Medication Refill Social History Tobacco Use Types [...] as of this encounter Care Teams Physical Therapist Center Manager Relationship Specialty Start Date End Date Deep Pruitt APRN PCP - General 05/22/19 documented as of this encounter
--- OUTSIDE RECORDS SUMMARY | 2025-04-07 15:03 | XMS_ITS | Clinical Summary ---
Author Organization [facility] Address [address] [place] [address] Care Team Providers Care Licensed Weigher Name Role Phone Katrin Santoyo Primary Care Provider [phone] Allergies Active Allergy Reactions Criticality Noted Date Comments Amlodipine Edema,Swelling High 03/28/2021 Pt develops lower leg swelling Pt develops lower leg swelling Penicillin Unknown Medium 01/13/2025 Medications fluticasone propion-salmete [...] Encounters Date Type Department Care Team Description 03/27/2025 Telephone [facility] Transplant Department [address] [place] [address] Radha Winter RN 03/27/2025 Documentation [facility] Trans[facility] [address] [place] [address] Radha Winter RN 03/25/2025 11:30 AM EST Office Visit [facility] Transplant Services [address] [place] [address] Deep Pagan MD Encounter for pre-transplant evaluation for chronic kidney disease (Primary Dx); Mood disorder 03/25/2025 9:31 AM EST - 03/25/2025 11:59 PM EST Hospital Encounter [facility] Pulmonary Function Lab [address] [place] [address] Obstructive lung disease (generalized) Discharge Disposition: Home or Self Care () 03/11/2025 9:56 AM EST - 03/11/2025 11:59 PM EST Hospital Encounter [facility] ACC Vascular Lab [address] [place] [address] Discharge Disposition: Home or Self Care () 03/05/2025 Orders Only [facility] Transplant Department [address] [place] [address] Deep Pagan MD 02/25/2025 Orders Only External Imaging [address] [place] [address] Radiology, External 01/30/2025 12:05 PM EDT Lab [facility] Draw Site [address] [place] [address] Pre-transplant evaluation for end stage renal disease; Weak urine stream; Type 2 diabetes mellitus with chronic kidney disease on chronic dialysis, unspecified whether detention insulin use (HCC) 01/30/2025 10:15 AM EDT Office Visit [facility] Renal Transplant [address] [place] [address] Shashank Aguilar MD Pre-transplant evaluation for kidney transplant (Primary Dx); Preop cardiovascular exam; Cerebrovascular accident (CVA), unspecified mechanism (HCC); Obstructive lung disease (generalized) (HCC); Pre-transplant evaluation for end stage renal disease; ESRD (end stage renal disease) (HCC) 01/30/2025 9:30 AM EDT Social Work [facility] Transplant [address] [place] [address] Gloria Luna LICSW 01/30/2025 8:30 AM EDT Evaluation [facility] Renal Transplant [address] [place] [address] Radha Winter RN Pre-transplant evaluation for kidney transplant (Primary Dx) 01/30/2025 8:00 AM EDT Office Visit [facility] Renal Transplant [address] [place] [address] Nereida Crane RN Pre-transplant evaluation for kidney transplant (Primary Dx) 01/30/2025 Orders Only [facility] Transplant Department [address] [place] [address] Radha Winter RN Pre-transplant evaluation for end stage renal disease (Primary Dx); Type 2 diabetes mellitus with chronic kidney disease on chronic dialysis, unspecified whether ferry terminal agent insulin use (HCC); Weak urine stream 01/27/2025 Telephone [facility] Transplant Department [address] [place] [address] Radha Winter RN 01/13/2025 Telephone [facility] Trans[facility] Department [address] [place] [address] Radha Winter RN 01/13/2025 Orders Only [facility] [address] [place] [address] Radha Winter RN Pre-transplant evaluation for end stage renal disease (Primary Dx); Weak urine stream; Type 2 diabetes mellitus with diabetic nephropathy, unspecified whether ferry terminal agent insulin use (HCC) 01/13/2025 Orders Only [facility] Trans[facility] [address] [place] [address] Radha Winter RN 01/13/2025 Telephone [facility] Trans[facility] Department [address] [place] [address] [employer] 01/09/2025 Telephone [facility] Trans[facility] Department [address] [place] [address] Radha Winter RN from Last 3 Months [...] Sign Reading Time Taken Comments Blood Pressure 153/92 03/25/2025 10:55 AM EST Pulse 94 03/25/2025 10:55 AM EST Temperature 36.6 C (97.8 F) 03/25/2025 10:55 AM EST Respiratory Rate 20 03/25/2025 10:55 AM EST Oxygen Saturation 95% 03/25/2025 10:55 AM EST Inhaled Oxygen Concentration - - Weight 105 kg (231 lb 7.7 oz) 03/25/2025 10:55 A M EST Height 170 cm (5' 6.93 ) 01/30/2025 7:59 AM EDT Body Mass Index 36.33 01/30/2025 7:59 AM EDT Plan of Treatment Upcoming Encounters Date Type Department Care Team (Late st Contact Info) Description 01/27/2026 9:00 AM EDT Follow-Up [facility] Renal Transplant [address] [place] [address] Shashank Aguilar MD [address] [place] [address] 01/27/2026 9:30 AM EDT Social Work [facility] Transplant [address] [place] [address] Gloria Luna LICSW [address] [place] [address] Health Maintenance Due Date Last Done Comments [...] / Fit Test 05/17/2024 05/17/2023 COVID-19 Vaccine (5 - 2024-2 6 season) 2025 02/01/2024, 04/14/2021, 08/28/2020, Additional history exists Basic Metabolic Panel 05/28/2025 02/25/2025, 025 Hemoglobin A1C 08/18/2025 02/17/2025, 01/07, 11/01/2024, Additional history exists Hemoglobin 01/30/2026 01/30/2025 PTH 01/30/2026 01/30/2025 Phosphorus 01/30/2026 01/30/2025 DTaP,Tdap,and Td Vaccines (3 - Td or Tdap) 03/24/2032 03/24/2022, 10/05/2016 Hepatitis B Vaccines Completed 04/05/2017, 10/05/2016, 08/17/2016 Pneumococcal Vaccine: 50+ Years Completed , 01/21/2021 CKD: Referral to Nephrology Completed 01/30/2025 HIV Screening Completed 01/30/2025, 06/0 06/2024, 10/07/2024 Hepatitis C Screening Completed 01/30/2025 , 10/07/2024, 02/06/2020 Influenza Vaccine Completed 02/24/2025, , 01/23/2023, Additional history exists Procedures * Due to [place] state law, this organization might not be sharing negative HIV tests. Procedure Name Priority Date/Time Associated Diagnosis Comments PULMONARY FUNCTION TEST Routine 03/25/20 10:10 AM EST Obstructive lung disease (generalized) CAROTID DUPLEX SCAN BILATERAL Routine 03/11/2025 10:16 AM EST Cerebrovascular accident (CVA), unspecified mechanism HERPES SIMPLEX VIRUS 1&2 IGG W/REFLEX TO HSV-2 INHIBITION Routine 01/30/2025 12:26 PM EDT Pre-transplant evaluation for end stage renal disease Weak urine stream Type 2 diabetes mellitus with chronic kidney disease on chronic dialysis, unspecified whether ferry terminal agent insulin use (HCC) ABO/RH BLOOD TYPE Routine [...] stage renal disease QUANTIFERON-TB GOLD PLUS, 1 [id number] Routine 01/30/2025 12:26 PM EDT Pre-transplant evaluation for end stage renal disease RPR (DIAGNOSIS) W/REFLEX TO TITER & TPPA [id number] Routine 01/30/2025 12:26 PM EDT Pre-transplant evaluation for end stage renal disease VARICELLA ZOSTER ANTIBODY, IGG Routine 01/30/2025 12:26 PM EDT Pre-transplant evaluation for end stage renal disease HLA TRANSPLANT WORK-UP (ALLELE LEVEL A/B/C/DRB1/MJH899/DQA1/ DQB1/DPA1/DPB1) Routine 01/30/2025 12:26 PM EDT Pre-transplant [...] kidney disease on chronic dialysis, unspecified whether ferry terminal agent insulin use (HCC) PTH, INTACT (WITHOUT CALCIUM) Routine 01/30/2025 12:26 PM EDT Pre-transplant evaluation for end stage renal disease PSA Routine 01/30/2025 12:26 PM EDT Pre-transplant evaluation for end stage renal disease Weak urine stream from Last 3 Months Results * Due to [place] state law, this organization might not be sharing negative HIV tests. * Pulmonary Function Test External - to be printed; Spirometry, Lung Volumes, Diffusing Capacity of the Lung (DLCO); Spirometry; obstructive lung disease (03/25/2025 10:10 AM EST) FVC (L) 2.51 L [facility] FVC % Predicted 65 % [facility] FEV1 (L) 2.07 L [facility] FEV1 % Predicted 67 % [facility] FEV1/FVC Ratio 82 % [facility] 03/25/2025 10:1 0 AM EST Narrative [facility] - 03/25/2025 10:10 AM EST There is a moderate restrictive ventilatory impairment by measure of total lung capacity. Restriction could be due to interstitial lung diseases, pulmonary vascular diseases, pleural abnormalities, poor chest wall compliance (including obesity, if present), neuromuscular weakness, or suboptimal coordination of testing maneuvers. Spirometry shows no evidence of airflow obstruction. The individual DLco efforts meet ATS/ERS acceptability, and meet repeatability standards. Measure of uncorrected diffusing capacity (DLco) is most consistent with mildly, nearly moderately, decreased alveolar capillary membrane surface area and diffusion properties for gas exchange, as seen in diseases such as pulmonary emphysema, interstitial lung diseases, and pulmonary vascular diseases. The normal range Kco (carbon monoxide transfer coefficient) with a low VA and low DLco does not exclude parenchymal lung disease. Suggest clinical and radiographic correlation. us Shashank Aguilar MD PFT ORDERABLES Final Res ult [facility] * CAROTID DUPLEX SCAN BILATERAL (03/11/2025 10:16 [...] nal Result * HLA Transplan Work-Up(Allele Level A/B/C/DRB1/WFT411/DQA1/DQB1/DPA1/DPB1) (01/30/2025 12:26 PM EDT) [facility] Histocompatibility Laboratory Information See Below 02/04/2025 5:23 PM EDT [facility] Comment: CHRISTOPHER: [id number] Director: Yamini Brandt MD. [facility] PFI: [id number] UNOS: [id number] This test [...] testing. B*-1 B*08:01 02/04/2025 5:23 PM EDT [facility] B*-2 B*49:01 02/04/2025 5:23 PM [...] [facility] [address] [facility] Rm: [id number] [place] [address], * (ABNORMAL) Herpes Simplex Virus 1&2 IgG w/Reflex to HSV-2 Inhibition (01/30/2025 12:26 PM EDT) HSV 1 IgG Type Specific Ab 44.80(H) <0.90 Index 02/03/2025 7:38 PM EDT [facility] HSV 2 IgG Type Specific Ab <0.90 <0.90 Index 02/03/2025 7:38 PM EDT [facility] ([place]) Comment: Index Values for HSV-1 and [...] test. For additional information, please refer to http://education.Smartzer/faq/FAQ73 (This link is being provided for informational/ educational purposes only.) Blood Structure of peripheral vein / Unknown Venipuncture / Unknown 01/30/2025 12:26 PM EDT 01/30/2025 12:36 PM EDT Narrative [facility] - 02/03/2025 7:38 PM EDT [facility] Received Date: us Shashank Aguilar MD LAB BLOOD ORDERABLES Fauzia guzman Result [facility] MARCOS [address] [facility] 3rd Floor, [place] [address], [place] [phone] [facility] ([place]) [address] [place], [place] , [place] * MMR Panel, IgG (01/30/2025 12:26 PM EDT) Pathologist [facility] Measles Antibody (IgG), Immune Status >300.00 AU/mL 01/31/2025 1:21 AM EDT [facility] Comment: AU/mL Interpretation ----- <13.50 Not consistent with immunity 13.50-16.49 Equivocal >16.49 Consistent with immunity The presence of measles IgG suggests immunization or past or current infection with measles virus. For additional information, please refer to http://Rival IQ.Smartzer/faq/NJK700 (This link is being provided for informational/ educational purposes only.) Mumps Antibody (IgG), Immune Status 89.60 AU/mL 01/31/2025 1:21 AM EDT [facility] Comment: AU/mL Interpretation ------- <9.00 Not consistent with immunity 9.00-10.99 Equivocal >10.99 Consistent with immunity The presence of mumps IgG antibody suggests immunization or past or current infection with mumps virus. Rubella Antibody (IgG), Immune Status 4.22 Index 01/31/2025 1:21 AM EDT [facility] [employer] Comment: Index Interpretation ----- <0.90 Not consistent with immunity 0.90-0.99 Equivocal > or = 1.00 Consistent with immunity The presence of rubella IgG antibody suggests immunization or past or current infection with rubella virus. Blood Structure of peripheral vein / Unknown Venipuncture / Unknown 01/30/2025 12:26 PM EDT 01/30/2025 12:37 PM EDT Narrative [facility] - 01/31/2025 1:21 AM EDT [facility] Received Date: Shashank Aguilar MD LAB BLOOD ORDERABLES Fauzia l Result [facility] MARCOS [address] [facility] 3[address] Floor, [place] [address], [place] [phone] [facility] [address], [place] [address], * RPR (Diagnosis) w/Reflex to Titer & TPPA Confirm (01/30/2025 12:26 PM EDT) Pathologist [facility] RPR W/Refl Titer NON-REACT NICKIE NON-REACT NICKIE 01/31/2025 11:26 AM EDT [facility] Blood Structure of peripheral vein / Unknown Venipuncture / Unknown 01/30/2025 12:26 PM EDT 01/30/2025 12:38 PM EDT [facility] - 01/31/2025 11:26 AM EDT [facility] Received Date:[id number] Shashank Aguilar MD LAB BLOOD ORDERABLES Fauzia l Result [facility] [address], [place] [address], [employer] [facility] [address], [place] [address], * QuantiFERON-TB Gold Plus, 1 Tube (01/30/2025 12:26 PM EDT) [facility] QuantiFERON-TB Gold Plus NEGATIVE NEGATIVE 02/01/2025 5:42 PM EDT [facility] Comment: Negative test result. M. tuberculosis complex infection unlikely. NIL 0.02 IU/mL 02/01/2025 5:42 PM EDT [facility] Mitogen-NIL 8.31 IU/mL 02/01/2025 5:42 PM EDT [facility] TB1-NIL 0.00 IU/mL 02/01/2025 5:42 PM EDT [facility] TB2-NIL 0.01 IU/mL 02/01/2025 5:42 PM EDT [facility] Comment: The Nil tube value reflects the [...] T-lymphocytes. For additional information, please refer to https://education.Genecure/faq/SGN904 (This link is being provided for informational/ educational purposes only.) Blood Structure of peripheral vein / Unknown Venipuncture / Unknown 01/30/2025 12:26 PM EDT 01/30/2025 12:34 PM EDT Narrative [facility] - 02/01/2025 5:42 PM EDT [facility] Received Date: Shashank Aguilar MD LAB BLOOD ORDERABLES Fauzia l Result [address] [facility], [place] [address], [facility] [address], [place] [address], * (ABNORMAL) CBC Auto Differential (01/30/2025 12:26 PM EDT) WBC 14.5(H) 3.8 - 10.8 10*3/uL 01/30/2025 12:47 PM EDT [facility] RBC 4.00(L) 4.20 - 5.80 10*6/uL 01/30/2025 12:47 PM EDT [facility] Hemoglobin 11.5(L) 13.2 - 17.1 g/dL 01/30/2025 12:47 PM EDT [facility] Hematocrit 36.1(L) 38.5 - 50.0 % 01/30/2025 12:47 PM EDT [facility] MCV 90.3 80.0 - 100.0 fL 01/30/2025 12:47 PM EDT [facility] MCH 28.8 27.0 - 33.0 pg 01/30/2025 12:47 PM EDT [facility] MCHC 31.9(L) 32.0 - 36.0 g/dL 01/30/2025 12:47 PM EDT [facility] RDW 14.1 11.0 - 15.0 % 01/30/2025 12:47 PM EDT [facility] Platelets 337 140 - 400 10*3/uL 01/30/2025 12:47 PM EDT [facility] MPV 12.1 7.5 - 12.5 fL 01/30/2025 12:47 PM EDT [facility] Neutrophil % 64.9 % 01/30/2025 12:47 PM EDT [facility] Immature Grans % 0.6 0.0 - 0.9 % 01/30/2025 12:47 PM EDT [facility] Lymphocyte % 17.4 % 01/30/2025 12:47 PM EDT [facility] Monocyte % 9.0 % 01/30/2025 12:47 PM EDT [facility] Eosinophil % 7.5 % 01/30/2025 12:47 PM EDT [facility] Basophil % 0.6 % 01/30/2025 12:47 PM EDT [facility] Neutrophil # 9.39(H) 1.50 - 7.80 10*3/uL 01/30/2025 12:47 PM EDT [facility] Immature Grans # 0.09(H) <=0.03 10*3/uL 01/30/2025 12:47 PM EDT [facility] Lymphocyte # 2.50 0.85 - 3.90 10*3/uL 01/30/2025 12:47 PM EDT [facility] Monocyte # 1.30(H) 0.20 - 0.95 10*3/uL 01/30/2025 12:47 PM EDT [facility] Eosinophil # 1.10(H) 0.02 - 0.50 10*3/uL 01/30/2025 12:47 PM EDT [facility] Basophil # 0.10 0.00 - 0.20 10*3/uL 01/30/2025 12:47 PM EDT [facility] nRBC % 0.0 /100 WBCs 01/30/2025 12:47 PM EDT [facility] nRBC # <0.01 <0.01 10*3/uL 01/30/2025 12:47 PM EDT [facility] Blood Structure of peripheral vein / Unknown Venipuncture / Unknown 01/30/2025 12:26 PM EDT 01/30/2025 12:38 PM EDT Shsahank Aguilar MD LAB BLOOD ORDERABLES Fauzia guzman Result [facility] [address] [place] [address], * (ABNORMAL) Alisha-Fink Virus VCA Antibody Panel (01/30/2025 12:26 PM EDT) EBV Viral Capsid Ag Ab (IGM) <36.00 U/mL 01/30/2025 9:20 PM EDT [facility] Comment: U/mL Interpretation ---- <36.00 Negative 36.00-43.99 Equivocal >43.99 Positive EBV Viral Capsid Ag Ab (IGG) >750.00(H) U/mL 01/30/2025 9:20 PM EDT [facility] Comment: U/mL Interpretation ---- <18.00 Negative 18.00-21.99 Equivocal >21.99 Positive EBV Nuclear Ag Ab 212.00(H) U/mL 025 9:20 PM EDT [facility] Comment: U/mL Interpretation ---- <18.00 Negative 18.00-21.99 Equivocal >21.99 Positive Interpretation: See Comments 01/30/2025 9:20 PM EDT [facility] Comment: Suggestive of a past Alisha-Fink virus infection. In infants, a similar pattern may occur as a result of passive maternal transfer of antibody. Blood Structure of peripheral vein / Unknown Venipuncture / Unknown 01/30/2025 12:26 PM EDT 01/30/2025 12:37 PM EDT Narrative [facility] - 01/30/2025 9:20 PM EDT [facility] Received Date: Shashank Aguilar MD LAB BLOOD ORDERABLES Fauzia guzman Result [facility]AN[facility] [address] [facility] 3rd Floor, [place] [address], [facility] [address] [facility] 3[address], [place] [address], * Hepatitis C Antibody w/Reflex to PCR (01/30/2025 12:26 PM EDT) Hepatitis C Antibody NON-REACT NICKIE NON-REACT NICKIE 01/31/2025 7:08 AM EDT [facility] Comment: HCV antibody was non-reactive. There is no laboratory evidence of HCV infection. In most cases, no further action is required. However, if recent HCV exposure is suspected, a test for HCV RNA (test code 56286) is suggested. For additional information please refer to http://education.Genecure/faq/TST47y5 (This link is being provided for informational/ educational purposes only.) Blood Structure of peripheral vein / Unknown Venipuncture / Unknown 01/30/2025 12:26 PM EDT 01/30/2025 12:38 PM EDT Narrative [facility] - 01/31/2025 7:08 AM EDT [facility] Received Date:[id number] Shashank Aguilar MD LAB BLOOD ORDERABLES Fauzia l Result [facility] [address], [place] [address], [place] [phone] [facility] [address], [place] [address], [place] [phone] * (ABNORMAL) Hepatitis A Antibody, Total (01/30/2025 12:26 PM EDT) Hepatitis A Ab, Total REACTIVE( A) NON-REACT NICKIE 01/31/2025 5:10 AM EDT [facility] Comment: For additional information, please refer to http://education.Genecure/faq/ZYE229 (This link is being provided for informational/ educational purposes only.) Blood Structure of peripheral vein / Unknown Venipuncture / Unknown 01/30/2025 12:26 PM EDT 01/30/2025 12:37 PM EDT Narrative [facility] - 01/31/2025 5:10 AM EDT [facility] Received Date:[id number] us Shashank Aguilar MD LAB BLOOD ORDERABLES Fauzia l Result [facility] [address], [place] [address], [place] [phone] [facility] [address], [place] [address], [place] [phone] * Hepatitis B Core Antibody, Total (01/30/2025 12:26 PM EDT) Pathologist [facility] Hepatitis B Core Ab Total NON-REACT NICKIE NON-REACT NICKIE 01/30/2025 11:48 PM EDT [facility] Comment: For additional information, please refer to http://education.Genecure/faq/DLY982 (This link is being provided for informational/ educational purposes only.) Blood Structure of peripheral vein / Unknown Venipuncture / Unknown 01/30/2025 12:26 PM EDT 01/30/2025 12:38 PM EDT [facility] - 01/30/2025 11:48 PM EDT [facility] Received Date:[id number] Shashank Aguilar MD LAB BLOOD ORDERABLES Fauzia l Result [facility] [address] [facility] 3[address] Floor, [place] [address], [place] [phone] [facility] [address] [facility] 3rd Floor, [place] [address], [place] [phone] * ABO/Rh Blood Type (01/30/2025 12:26 PM EDT) Pathologist [facility] ABO Blood Type O 01/30/2025 1:11 PM EDT [facility] RH Type Positive 01/30/2025 1:11 PM EDT [facility] Blood Structure of peripheral vein / Unknown Venipuncture / Unknown 01/30/2025 12:26 PM EDT 01/30/2025 12:38 PM EDT Shashank Aguilar MD LAB BLOOD BANK TEST ORDER FANTA Final Result [facility] [address] [place] [address], [place] [phone] * HIV-1/2 Antigen/Antibodies 4th Generation w/Reflex (01/30/2025 12:26 PM EDT) Pathologist [facility] HIV Final Interp HIV NEGATIVE 01/30/2025 7:46 PM EDT [facility] Comment: HIV-1 antigen and HIV-1/HIV-2 antibodies were not detected. There is no laboratory evidence of HIV infection. Blood Structure of peripheral vein / Unknown Venipuncture / Unknown 01/30/2025 12:26 PM EDT 01/30/2025 12:38 PM EDT Narrative [facility] - 01/30/2025 7:46 PM EDT [facility] Received Date:[id number] Shashank Aguilar MD LAB BLOOD ORDERABLES Fauzia l Result Performing Organization Address City/[facility]/ZIP Co de Phone Number [facility] ESPANOLA [address], [place] [address], [facility] [address], [place] [address], * Hepatitis B Surface Antibody (01/30/2025 12:26 PM EDT) Hepatitis B Surface Ab Immunity, Qn 160 > OR = 10 mIU/mL 01/30/2025 7:31 PM EDT [facility] Comment: PATIENT HAS IMMUNITY TO HEPATITIS B VIRUS. For additional information, please refer to http://education.Genecure/faq/PID447 (This link is being provided for informational/ educational purposes only). Blood Structure of peripheral vein / Unknown Venipuncture / Unknown 01/30/2025 12:26 PM EDT 01/30/2025 12:37 PM EDT Narrative [facility] - 01/30/2025 7:31 PM EDT [facility] Received Date:[id number] Shashank Aguilar MD LAB BLOOD ORDERABLES Fauzia l Result [facility] ESPAN[facility] [address], [place] [address], [place] [phone] [facility] [address], [place] [address], * Hepatitis B Surface Antigen w/Confirmation (01/30/2025 12:26 PM EDT) [facility] Hepatitis B Surface Antigen NON-REACT NICKIE NON-REACT NICKIE 01/30/2025 11:43 PM EDT [facility] Comment: For additional information, please refer to http://education.Genecure/faq/YIC349 (This link is being provided for informational/ educational purposes only.) Blood Structure of peripheral vein / Unknown Venipuncture / Unknown 01/30/2025 12:26 PM EDT 01/30/2025 12:37 PM EDT [facility] - 01/30/2025 11:43 PM EDT [facility] Received Date: Shashank Aguilar MD LAB BLOOD ORDERABLES Fauzia guzman Result [facility] [address] [facility] 3rd Floor, [address] [place] [place] [address], [employer] [facility] [address], [place] [address], * Cytomegalovirus Antibody, IgG (01/30/2025 12:26 PM EDT) [facility] Cytomegalovirus Antibody (IgG) <0.60 U/mL 01/31/2025 1:20 AM EDT [employer] [facility] Comment: U/mL Interpretation ----- <0.60 Negative 0.60-0.69 Equivocal > or = 0.70 Positive A positive result indicates that the patient has antibody to CMV. It does not differentiate between an active or past infection. Blood Structure of peripheral vein / Unknown Venipuncture / Unknown 01/30/2025 12:26 PM EDT 01/30/2025 12:37 PM EDT [facility] ESPANOLA - 01/31/2025 1:20 AM EDT [facility] Received Date:[id number] Shashank Aguilar MD LAB BLOOD ORDERABLES Fauzia gumzan Result TERESA ESPANOLA [address] [facility] 3rd Floor, [place] [address], [place] [phone] [facility] 200 [facility] 3rd Floor, [place] [address], [place] [phone] * PTT (01/30/2025 12:26 PM EDT) aPTT 25.5 23.0 - 32.0 Seconds 01/30/2025 1:02 PM EDT [facility] Comment: Current PTT reagent is not sensitive to detect all Lupus Anticoagulant (LA) Inhibitor Cases. If a LA is suspected, please order a Lupus Anticoagulation w/ Reflex Test which is performed at [facility] in [place], [place]. Blood Structure of peripheral vein / Unknown Venipuncture / Unknown 01/30/2025 12:26 PM EDT 01/30/2025 12:38 PM EDT Shashank Aguilar MD LAB BLOOD ORDERABLES Fauzia l Result [facility] [employer] [facility] [address] [place] [address], * Protime-INR (01/30/2025 12:26 PM EDT) PT 9.9 9.6 - 12.4 Seconds 01/30/2025 1:02 PM EDT [facility] INR 0.9 0.9 - 1.1 01/30/2025 1:02 PM EDT [facility] Comment:The optimal therapeu tic INR range for patients treated with Vitamin K antagonists (VKAS, e.g., Warfarin) is 2.0 to 3.5. Discuss the desired range with your doctor/care team. Blood Structure of peripheral vein / Unknown Venipuncture / Unknown 01/30/2025 12:26 PM EDT 01/30/2025 12:38 PM EDT Shashank Aguilar MD LAB BLOOD ORDERABLES Fauzia l Result Performing Organization Address [facility]/ZIP Co de Phone Number UMASSM[facility]OREGGIE - [facility] [address] [place] [address], [place] * Varicella Zoster Antibody, IgG (01/30/2025 12:26 PM EDT) Pathologist [facility] Varicella Zoster Virus Antibody 6.37 S/CO 01/31/2025 1:21 AM EDT [employer] [facility] Comment: Signal to Cut-off S/CO Interpretation --------- [...] EDT 01/30/2025 12:38 PM EDT Narrative [facility] - 01/31/2025 1:21 AM EDT [facility] Received Date:[id number] Shashank Aguilar MD LAB BLOOD ORDERABLES Fauzia l Result Performing Organization Address City/[facility]/ZIP Co de Phone Number TERESA ESPANOLA [address] [facility] 3rd Floor, [place] [address], [place] [phone] [facility] [address] [facility] 3rd Floor, [place] [address], [place] [phone] * (ABNORMAL) BUN (01/30/2025 12:26 PM EDT) BUN 44(H) 7 - 23 mg/dL 01/30/2025 1:08 PM EDT [facility] Blood Structure of peripheral vein / Unknown Venipuncture / Unknown 01/30/2025 12:26 PM EDT 01/30/2025 12:38 PM EDT Shashank Aguilar MD LAB BLOOD ORDERABLES Fauzia l Result [facility] [address] [place] [address], [place] * ALT (01/30/2025 12:26 PM EDT) ALT 12 10 - 40 U/L 01/30/2025 1:08 PM EDT [facility] Blood Structure of peripheral vein / Unknown Venipuncture / Unknown 01/30/2025 12:26 PM EDT 01/30/2025 12:38 PM EDT Shashank Aguilar MD LAB BLOOD ORDERABLES Fauzia l Result Performing Organization Address City/[facility]/ZIP Co de Phone Number [facility] [address] [place] [address], [place] * AST (01/30/2025 12:26 PM EDT) AST 11 10 - 40 U/L 01/30/2025 1:08 PM EDT [facility] Blood Structure of peripheral vein / Unknown Venipuncture / Unknown 01/30/2025 12:26 PM EDT 01/30/2025 12:38 PM EDT Shashank Aguilar MD LAB BLOOD ORDERABLES Fauzia l Result [employer] [facility] [address] [place] [address], [place] * PSA (01/30/2025 12:26 PM EDT) PSA 1.59 <=4.00 ng/mL 01/30/2025 1:13 PM EDT [facility] [employer] [facility] Comment: The total PSA value from this assay system is standardized against the WHO standard. The test result will be slightly lower (< 3 %) when compared to the equimolar-standardized total PSA(Jana Lui). Comparison of Serial PSA results should be [...] ORDERABLES Fauzia l Result Performing Organization Address [facility] de Phone Number [facility] [address] [place] [address], [place] * (ABNORMAL) Phosphorus (01/30/2025 12:26 PM EDT) Phosphorus 6.0(H) 2.5 - 4.5 mg/dL 01/30/2025 1:08 PM EDT [facility] [employer] [facility] Blood Structure of peripheral vein / Unknown Venipuncture / Unknown 01/30/2025 12:26 PM EDT 01/30/2025 12:38 PM EDT Shashank Aguilar MD LAB BLOOD ORDERABLES Fauzia l Result Performing Organization Address [facility] Co de Phone Number [facility] [address] [place] [address], [place] * (ABNORMAL) PTH, Intact (without Calcium) (01/30/2025 12:26 PM EDT) Parathyroid Hormone, Intact 694(H) 16 - 77 pg/mL 01/30/2025 11:43 PM EDT [employer] Comment: Interpretive Guide Intact PTH Calcium ------- Normal Parathyroid Normal Normal Hypoparathyroidism Low or Low Normal Low Hyperparathyroidism Primary Normal or High High Secondary High Normal or Low Tertiary High High Non-Parathyroid Hypercalcemia Low or Low Normal High Blood Structure of peripheral vein / Unknown Venipuncture / Unknown 01/30/2025 12:26 PM EDT 01/30/2025 12:37 PM EDT [facility] PRITI - 01/30/2025 11:43 PM EDT [facility] Received Date: Shashank Aguilar MD LAB BLOOD ORDERABLES Fauzia l Result [facility] [address] [facility] [address]rd Floor, [place] [address], [employer] [facility] [address] [facility] [address], [place] [address], * (ABNORMAL) Hemoglobin A1c (01/30/2025 12:26 PM EDT) Hemoglobin A1C 6.9(H) <5.7 % 01/30/2025 7:32 PM EDT [employer] Comment: For someone without known diabetes, a [...] (MG/DL) 151 mg/dL 01/30/2025 7:32 PM EDT [employer] [facility] eAG (MMOL/L) 8.4 mmol/L 01/30/2025 7:32 PM EDT [employer] [facility] Blood Structure of peripheral vein / Unknown Venipuncture / Unknown 01/30/2025 12:26 PM EDT 01/30/2025 12:37 PM EDT Narrative TERESA MARCOS - 01/30/2025 7:32 PM EDT [facility] Received Date: us Shashank Aguilar MD LAB BLOOD ORDERABLES Fauzia l Result TERESA ESPANOLA [address] [facility] [address], [place] [address], [facility] [address], [place] [address], * (ABNORMAL) Creatinine (01/30/2025 12:26 PM EDT) Creatinine 6.17(H) 0.60 - 1.30 mg/dL 01/30/2025 1:08 PM EDT [facility] eGFR 10(L) >=60 mL/min/1 .73m2 01/30/2025 1:08 PM EDT [facility] Comment:The estimated glomer ular [...] ORDERABLES Fauzia l Result Performing Organization Address City/[facility]/ZIP Co de Phone Number [facility] [address] [place] [address], [place] * Calcium (01/30/2025 12:26 PM EDT) Calcium 9.2 8.6 - 10.5 mg/dL 01/30/2025 1:08 PM EDT [facility] Blood Structure of peripheral vein / Unknown Venipuncture / Unknown 01/30/2025 12:26 PM EDT 01/30/2025 12:38 PM EDT Shashank Aguilar MD LAB BLOOD ORDERABLES Fauzia l Result Performing Organization Address [facility] Co de Phone Number [facility] [address] [place] [address], [place] * Bilirubin, Direct (01/30/2025 12:26 PM EDT) Bilirubin, Direct 0.1 <=0.4 mg/dL 01/30/2025 1:08 PM EDT [facility] Blood Structure of peripheral vein / Unknown Venipuncture / Unknown 01/30/2025 12:26 PM EDT 01/30/2025 12:38 PM EDT Shashank Aguilar MD LAB BLOOD ORDERABLES Fauzia l Result [facility] [address] [place] [address], [place] * Bilirubin, Total (01/30/2025 12:26 PM EDT) Bilirubin, Total 0.4 0.2 - 1.2 mg/dL 01/30/2025 1:08 PM EDT [facility] Blood Structure of peripheral vein / Unknown Venipuncture / Unknown 01/30/2025 12:26 PM EDT 01/30/2025 12:38 PM EDT Shashank Aguilar MD LAB BLOOD ORDERABLES Fauzia l Result [facility] [address] * Albumin (01/30/2025 12:26 PM EDT) Albumin 3.7 3.5 - 5.2 g/dL 01/30/2025 1:08 PM EDT [facility] Blood Structure of peripheral vein / Unknown Venipuncture / Unknown 01/30/2025 12:26 PM EDT 01/30/2025 12:38 PM EDT Shashank Aguilar MD LAB BLOOD ORDERABLES Fauzia l Result Performing Organization Address City/[facility]/ZIP Co de Phone Number [facility] [address] [place] [address] from Last 3 Months Insurance [facility] Advance Directives Documents on File Type Date Recorded Patient Physical Sciences Instructor Expl [facility] Care Proxy 02/10/2025 5:21 PM 01/30 Care Teams Licensed Weigher Relationship Specialty Start Date End Date Katrin Santoyo [address] [place] [address] PCP - General 01/03/25
--- OUTSIDE RECORDS SUMMARY | 2025-04-07 15:04 | XMS_ITS | Encounter Summary ---
Author Organization [facility] Address [address] [place] [address] Care Team Providers Care Attendant Coin Operated Laundry Name Role Phone Romelia Pruittian Niko LOPEZ Primary Care Provider Encounter Details Date Type Department Care Team (Late st Contact Info) Description 08/09/2021 Scanned Document [facility] [address] [place] [address] External, Provider Social History Tobacco Use Types [...] Recorded PHQ-2 Total Score 4 07/13/2021 [facility] [...] documented as of this encounter Care Teams Attendant Coin Operated Laundry Relationship Specialty Start Date End Date Deep Pruitt APRN PCP - General 05/22/19 documented as of this encounter
--- OUTSIDE RECORDS SUMMARY | 2025-04-07 15:04 | XMS_ITS | Encounter Summary ---
Author Organization [facility] Address [address] [place] [address] Care Team Providers Care Hand Coper Name Role Phone Romelia Pruittian Niko LOPEZ Primary Care Provider [phone] Encounter Details Date Type Department Care Team (Late st Contact Info) Description 09/08/2021 Scanned Document [facility] [address] [place] [address] External, Provider Social History Tobacco Use Types [...] as of this encounter Care Teams Hand Coper Relationship Specialty Start Date End Date Deep Pruitt APRN PCP - General 05/22/19 documented as of this encounter
--- OUTSIDE RECORDS SUMMARY | 2025-04-07 15:04 | XMS_ITS | Encounter Summary ---
Author Organization [facility] Address [address] [place] [address] Care Team Providers Care Extension Supervisor Name Role Phone Deep Pruitt APRN Primary Care Provider Encounter Details Date Type Department Care Team (Latest Contact Info) Description 09/09/2021 Transcribed Orders [place] [facility] [address] [place] [address] Deep Pruitt APRN [address] [place] [address] Encounter for routine screening for [...] Date Recorded PHQ-2 Total Score 2 09/08/2021 [facility] - Occupational Stress Questionnaire Answer [...] Orde r Schedule TSH w/reflex to FT4 ([facility] LMW Q YH) Lab Routine Encounter [...] health care facility TSH W/REFLEX TO FT4 ([facility] LMW Q YH) Routine 09/09/2021 12:05 [...] general medical examination at a [facility] ALBUMIN/CREATININE PANEL, URINE, RANDOM Routine 09/09/2021 11:01 AM EDT Encounter for routine screening for malformation using ultrasonics Special screening for malignant neoplasm of prostate Routine general medical examination at a [facility] facility CBC WITH AUTO DIFFERENTIAL Routine 09/09/2021 10:58 AM EDT Encounter for routine screening for malformation using ultrasonics Special screening for malignant neoplasm of prostate Routine general medical examination at a [facility] facility CBC AND DIFFERENTIAL Routine 09/09/2021 10:58 AM EDT Encounter for routine screening for malformation using ultrasonics Special screening for malignant neoplasm of prostate Routine general medical examination at a [facility] HEMOGLOBIN A1C Routine 09/09/2021 10:58 AM EDT Encounter for routine screening for malformation using ultrasonics Special screening for malignant neoplasm of prostate Routine general medical examination at a [facility] documented in this encounter Results * PSA, total and free (09/09/2021 12:05 PM EDT) Prostate Specific Antigen, Total (YH) 0.578 0.000 - 3.900 ng/mL 09/13/2021 1:44 PM EDT [facility] DEPARTMENT OF LABORATORY MEDICINE Prostate Specific Antigen, Free (YH) 0.28 0.00 - 3.90 ng/mL 09/13/2021 1:44 PM EDT [facility] OF [facility]ORATORY MEDICINE Comment:Prostate Specific An tigen, Free Percentage can not be calculated. PSA, Total value out of appropriate range. Blood Venipuncture / Unknown 09/09/2021 12:05 PM EDT 09/13/2021 10:48 AM EDT Narrative [facility]PARTMENT OF LABORATORY MEDICINE - 09/13/2021 [...] BLOOD ORDERABLES Final Result Performing Organization Address City/State/[facility] Co de Phone Number [facility]END[facility] DEPARTMENT OF LABORATORY MEDICINE [address] [place] [address] * (ABNORMAL) Comprehensive metabolic panel (09/09/2021 12:05 [...] - 10.2 mg/dL 09/09/2021 2:42 PM T [facility] BUN/Creatinine Ratio 22.1 [...] - 122 U/L 09/09/2021 2:42 PM T [facility] Alanine Aminotransferase (ALT) [...] 1 suggests non-alcoholic fatty liver disease (NAFLD) [place] (healthy): AST/ALT can be > 3 on [...] creatinine is at steady state. eGFR (NON -Djiboutian) 53 >60 mL/min/1.7 3m2 09/09/2021 2:42 PM EDT [facility] Comment: Values under 60mL/min/1.73m2 may indicate CKD if noted for more than 3 months. eGFR is only valid if creatinine is at steady state. Blood Venipuncture / Unknown 09/09/2021 12:05 PM EDT 09/09/2021 12:05 PM EDT Deep Pruitt BUSINESS CONTINUITY DIRECTOR LAB BLOOD ORDERABLES Final Result Performing Organization Address City/[facility]/ZIP Co de Phone Number [facility] [address] [place] [address] * TSH w/reflex to FT4 ([facility] LMW Q YH) (09/09/2021 12:05 PM EDT) Thyroid Stimulating Hormone 3.640 See Comment IU/mL 09/09/2021 2:42 PM EDT [facility] Comment: Male & Non- Females: 0.270-4.200 IU/mL 1st Trimester: 0.110-3.480 IU/mL 2nd Trimester: 0.320-3.850 IU/mL Blood Venipuncture / Unknown 09/09/2021 12:05 PM EDT 09/09/2021 12:05 PM EDT Deepenio Pruitt BUSINESS CONTINUITY DIRECTOR LAB BLOOD ORDERABLES Final Result [facility] [address] [place] [address] * LDL cholesterol, direct (09/09/2021 12:05 PM [...] ORDERABLES Final Result [facility] [address] [place] [address], [facility] [phone] * (ABNORMAL) Albumin/creatinine panel, urine, random (09/09/2021 [...] 09/09/2021 11:01 AM EDT us Deep Pruitt BUSINESS CONTINUITY DIRECTOR URINE ORDERABLES Final Resu lt [facility] [address] [place] [address], [facility] [phone] * (ABNORMAL) CBC auto differential (09/09/2021 10:58 [...] 2:16 PM EDT [facility] ANC(Abs Neutrophil Count) [...] PM EDT [facility] Absolute Immature Granulocyte Count 0.10 0.00 - 0.30 x 1000/ L 09/09/2021 2:16 PM EDT [facility] Absolute nRBC 0.00 0.00 - 1.00 x 1000/ L 09/09/2021 2:16 PM T [facility] Blood Venipuncture / Unknown 09/09/2021 10:58 AM EDT 09/09/2021 10:58 AM EDT Deep Pruitt APRN LAB BLOOD ORDERABLES Final Result Performing Organization Address City/[facility]/ZIP Co de Phone Number [facility] [address] [place] [address] [phone] * (ABNORMAL) Hemoglobin A1c (09/09/2021 10:58 AM EDT) Hemoglobin A1c 11.5(H) 4.0 - 5.6 % 09/10/2021 6:36 PM EDT [facility]ICINE Comment: Hemoglobin [...] mg/dL 283 mg/dL 09/10/2021 6:36 PM EDT [facility]PART[facility] OF [facility]OR[facility]ORY MEDICINE Comment: Estimated average glucose (eAG) is a calculated value designed to estimate the expected average blood glucose level throughout the day from a single measurement of glycated hemoglobin A1C (HbA1c) and follows the calculation proposed by the [place] [employer] (Diabetes Care 31: 1-6, 2008). It may have less accuracy in children, women and patients with certain erythrocyte disorders. Blood Venipuncture / Unknown 09/09/2021 10:58 AM EDT 09/09/2021 10:58 AM EDT Deep Pruitt APRN LAB BLOOD ORDERABLES Final Result Performing Organization Address City/[facility]/ZIP Co de Phone Number PEND[facility]PARTMENT OF LABORATORY MEDICINE [address] [place] [address], [facility] [phone] documented in this encounter Visit Diagnoses Diagnosis [...] as of this encounter Care Teams Extension Supervisor Relationship Specialty Start Date End Date Deep Pruitt APRN PCP - General 05/22/19 documented as of this encounter
--- OUTSIDE RECORDS SUMMARY | 2025-04-07 15:04 | XMS_ITS | Encounter Summary ---
Author Organization [facility] Address [address] [place] [address] Care Team Providers Care Timber Setter Name Role Phone Deep Pruitt APRN Primary Care Provider Encounter Details Date Type Department Care Team (Latest Contact Info) Description 09/13/2021 Transcribed Orders [facility] [address] [place] [address] Deep Pruitt APRN [address] [place] [address] Encounter for routine screening [...] Recorded PHQ-2 Total Score 5 09/14/2021 [facility] - Occupational Stress Questionnaire Answer [...] PM EDT [facility] DEPARTMENT OF LABORATORY MEDICINE Prostate Specific Antigen, Free (YH) 0.28 0.00 - 3.90 ng/mL 09/13/2021 1:44 PM EDT [facility] DEPARTMENT OF LABORATORY MEDICINE Comment:Prostate Specific An tigen, Free Percentage can not be calculated. PSA, Total value out of appropriate range. Blood Venipuncture / Unknown 09/09/2021 12:05 PM EDT 09/13/2021 10:48 AM EDT Narrative [facility] DEPARTMENT OF LABORATORY MEDICINE - [...] Final Result [facility] DEPARTMENT OF LABORATORY MEDICINE [address] [place] [address] documented in this encounter Visit Diagnoses Diagnosis [...] as of this encounter Care Teams Timber Setter Relationship Specialty Start Date End Date Deep Pruitt APRN PCP - General 05/22/19 documented as of this encounter
--- OUTSIDE RECORDS SUMMARY | 2025-04-07 15:04 | XMS_ITS | Encounter Summary ---
Author Organization [facility] Address [address] [place] [address] Care Team Providers Care Administrative Assistant Coordinator Name Role Phone Romelia Pruittian Niko LOPEZ Primary Care Provider Reason for Visit * Reason Comments Medication Refill Encounter Details Date Type Department Care Team ([facility] st Contact Info) Description 09/16/2021 Refill [facility] [address] [place] [address] [phone] Carlos Eduardo Joyner MD [address] [place] [phone] Medication Refill Social History Tobacco Use [...] of this encounter Care Teams Administrative Assistant Coordinator Relationship Specialty Start Date End Date Deep Pruitt APRN PCP - General 05/22/19 documented as of this encounter
--- OUTSIDE RECORDS SUMMARY | 2025-04-07 15:04 | XMS_ITS | Encounter Summary ---
Author Organization [facility] Address [address] [place] [address] Care Team Providers Care Windsmith Name Role Phone Deep Pruitt APRN Primary Care Provider [phone] Encounter Details Date Type Department Care Team (Late st Contact Info) Description 08/05/2021 Orders Only [facility] [address] [place] [address] Carolyn Marin MD [address] [place] [phone] Essential hypertension Social History Tobacco Use [...] Date Recorded PHQ-2 Total Score 4 07/13/2021 [facility] - [...] documented as of this encounter Care Teams Windsmith Relationship Specialty Start Date End Date Deep Pruitt APRN PCP - General 05/22/19 documented as of this encounter
--- OUTSIDE RECORDS SUMMARY | 2025-04-07 15:04 | XMS_ITS | Encounter Summary ---
Author Organization [facility] Address [address] [place] [address] Care Team Providers Care Business Information Consultant Name Role Phone Deep Pruitt APRN Primary Care Provider Reason for Visit * Reason Comments Medication Refill Encounter Details Date Type Department Care Team ([facility] st Contact Info) Description 09/16/[address] [facility] [address] [place] [address] Deep Pruitt APRN [address] [place] [phone] Medication Refill Social History Tobacco Use [...] Date Recorded PHQ-2 Total Score 5 09/14/2021 [facility] of Occupat ional [...] as of this encounter Care Teams Business Information Consultant Relationship Specialty Start Date End Date Deep Pruitt APRN PCP - General 05/22/19 documented as of this encounter
--- OUTSIDE RECORDS SUMMARY | 2025-04-07 15:04 | XMS_ITS | Encounter Summary ---
Author Organization [facility] Address [address] [place] [address] Care Team Providers Care Television Operator Name Role Phone Romelia Pruittian Niko LOPEZ Primary Care Provider Encounter Details Date Type Department Care Team (Late st Contact Info) Description 09/06/2021 Scanned Document [facility] [address] [place] [address] External, Provider Social History Tobacco Use Types [...] Date Recorded PHQ-2 Total Score 2 09/08/2021 [facility] of Occupat ional [...] as of this encounter Care Teams Television Operator Relationship Specialty Start Date End Date Deep Pruitt APRN PCP - General 05/22/19 documented as of this encounter
--- OUTSIDE RECORDS SUMMARY | 2025-04-07 15:04 | XMS_ITS | Encounter Summary ---
Author Organization [facility] [employer] and [facility] Address [address] [place] [id number] Care Team Providers Care Bunch Breaker Name Role Phone Romelia Pruittian Niko LOPEZ Primary Care Provider Encounter Details Date Type Department Care Team (Latest Contact Info) Description 08/10/2021 Transcribed Orders [facility] [address] [place] [address] Taylor Malagon, RESIDENCE LEASING AGENT [address] [place] [id number] Stage 3a chronic kidney disease [...] Recorded PHQ-2 Total Score 4 07/13/2021 [facility]ational Stress Questionnaire Answer Date [...] as of this encounter Results * Phosphorus ([facility] ) (08/10/2021 9:40 AM EDT) Phosphorus 3.5 2.2 - 4.5 mg/dL 08/10/2021 10:26 AM EDT [facility]PART[facility] OF LABORATORY MEDICINE Blood Venipuncture / Unknown 08/10/2021 9:40 AM EDT 08/10/2021 9:56 AM EDT Taylor Malagon APRN LAB BLOOD ORDERABLES Fauzia guzman Result [facility] DEPARTMENT OF LABORATORY MEDICINE [address] [place] [address] documented in this encounter Visit Diagnoses Diagnosis Stage 3a chronic kidney disease (CKD) (HC Code) (HC CODE)- Primary documented in this encounter Additional Health Concerns Infection Onset Date Last Indicated Resolved Time COVID-19 09/29/2021 09/29/2021 10/19/2021 7:19 PM EDT Assessment Noted Time PHQ-9 Depression Total Score: 11 022 2:28 PM EST documented as of this encounter Care Teams Bunch Breaker Relationship Specialty Start Date End Date Deep Pruitt APRN PCP - General 05/22/19 documented as of this encounter
== END 2025-04-07 12:12 | disposition home or self-care (01) ==
LOC: HO.HGI 11:23
PROVIDERS: PCP Student in an Organized Health Care Education/Training Program; Visit Provider Internal Medicine Gastroenterology
DX: G57.20 Lesion of femoral nerve, unspecified lower limb (principal)
CPT/HCPCS: 99214

== ENCOUNTER → 2025-04-07 11:23 | Outpatient (BNVA) | payer MEDICAID, SELFPAY | PROVIDERS: PCP Student in an Organized Health Care Education/Training Program; Visit Provider Internal Medicine Gastroenterology | DX: G57.20 Lesion of femoral nerve, unspecified lower limb (principal) | CPT/HCPCS: 99212 ==

== ENCOUNTER 2025-04-07 12:29 | Emergency (ER) | payer MEDICAID, SELFPAY ==
--- NOTE | ~2025-04-07 | US_ITS ---
EXAMINATION: US TRIPLEX LOWER EXTREMITY, RIGHT CLINICAL INFORMATION: Thigh pain COMPARISON: None available. TECHNIQUE: Color-flow triplex imaging with spectral analysis and compression Doppler were performed on the right lower extremity. FINDINGS: Respiratory variation, normal compression and augmented flow are noted throughout the right lower extremity. The visualized common femoral vein, superficial femoral vein, profunda femoral vein, popliteal vein and midcalf posterior tibial venous segments show no evidence of deep venous thrombosis. The peroneal vein is not visualized. Prominent groin lymph nodes, having a maximal AP measurement of 1 cm and 0.8 cm respectively. Cystic focus in the posterior knee, could reflect joint effusion versus Conway's cyst. Performing boilermaker welder favored joint effusion in real-time imaging. Soft tissue edema in the calf. US/US venous duplex LE RT IMPRESSION: 1. No evidence of DVT in the visualized deep veins. 2. The peroneal vein is not visualized. If the patient's symptoms persist, followup ultrasound in 5 days 7 days might be of value to exclude proximal propagation from a non-visualized calf vein. Recommendation is for a follow-up chest series to be obtained following treatment and/or resolution of symptoms to assure resolution of this appearance. 3. Prominent groin lymph nodes 4. Cystic focus in the posterior knee could reflect joint effusion versus Conway's cyst Electronically signed by: Ozzie Barajas MD 04/07/2025 02:12 PM [facility]
[2025-04-07 12:38] VITALS: BP 160/98; PULSE 85; RESP 18; TEMP 36.6; O2SAT 98; BMI 35.5
--- NOTE | 2025-04-07 12:40 | ED.GENADULT ---
HPI - General Adult General Chief complaint: Extremity Injury, Lower Stated complaint: Knee Leg Pain Time Seen by Provider: 04/07/25 16:09 History of Present Illness ED Provider: Marija Andrade NP HPI narrative: 54-year-old male medical history significant for neuropathy, ESRD on dialysis Monday, CKD stage 5 due to type 2 diabetes mellitus, reactive airway disease, hyperparathyroidism, hypertension, anemia, protein urea, REGI on CPAP, obesity, schizoaffective disorder presents to the ED for evaluation reporting 3 days of right-sided thigh pain. Denies any direct injury, trauma to the area. Reports he may have pulled a muscle when walking, as pain is localized to the inner thigh. There is no redness, swelling there. He denies any fever, chills. Despite ESRD, he still does make urine, and denies any urinary complaints including dysuria, hematuria, urgency or frequency. Denies any chest pain or pressure, shortness of breath or abdominal pain. There is no flank pain, but he does report mild right-sided low back pain. No numbness, tingling in the legs, weakness in the legs. No saddle anesthesia. No bowel or urinary incontinence. Related Data Home Medications ?Medication ?Instructions ?Recorded ?Confirmed blood-glucose,floor refinisher,cont 11/09/22 12/23/24 (Dexcom G7 Sand Slinger) carvedilol 25 mg tablet 25 mg PO BID 11/09/22 12/23/24 pantoprazole 40 mg tablet,delayed 40 mg PO DAILY 11/09/22 12/23/24 release trazodone 150 mg tablet 150 mg PO BEDTIME PRN Sleep 11/09/22 12/23/24 acetaminophen 500 mg tablet 1,000 mg PO Q6H PRN fever 06/08/23 12/23/24 albuterol sulfate 2.5 mg/3 mL 2.5 mg inhalation Q6H PRN wheezing 06/08/23 12/23/24 (0.083 %) solution for nebulization aspirin 81 mg chewable tablet 1 tab PO DAILY 06/08/23 12/23/24 atorvastatin 80 mg tablet 80 mg PO DAILY 06/08/23 12/23/24 calcium carbonate (Calcium Antacid) 400 mg PO DAILY 06/08/23 12/23/24 carboxymethylcellulose sodium 0.5 1 drp ophthalmic (eye) NEEDED 06/08/23 12/23/24 % eye drops in a dropperette dry eyes (Lubricant Eye Drops) clonazepam 0.5 mg tablet 0.5 mg PO TID 06/08/23 12/23/24 divalproex 500 mg tablet,extended 1,000 mg PO BEDTIME 06/08/23 12/23/24 release 24 hr (Depakote ER) tiotropium bromide 1.25 2 puff inhalation DAILY 06/08/23 12/23/24 mcg/actuation mist for inhalation (Spiriva Respimat) blood-glucose sensor (Dexcom G7 #1 ea 07/28/23 12/23/24 Sensor device) pen needle, diabetic 31 gauge x #1,200 ea 07/28/23 12/23/24/16 (BD Ultra-Fine Mini Pen Needle) ketotifen fumarate 0.025 % (0.035 1 drp ophthalmic (eye) BID PRN 03/20/24 12/23/24 %) eye drops (Eye Itch Relief) allergies omega-3 300 mg-dha 120 mg-epa 180 2 cap PO BID 06/21/24 12/23/24 mg-fish oil 1,000 mg capsule amlodipine 5 mg tablet 5 mg PO DAILY 10/09/24 12/23/24 diphenhydramine HCl 25 mg tablet 25 mg PO TID PRN Allergic Reaction 10/09/24 12/23/24 (Carey-Dryl) ezetimibe 10 mg tablet 10 mg PO DAILY 10/09/24 12/23/24 febuxostat 40 mg tablet 40 mg PO DAILY 10/09/24 12/23/24 tramadol 50 mg tablet 50 mg PO Q12H PRN severe pain 10/09/24 12/23/24 prednisone 20 mg tablet 20 mg PO DAILY 12/19/24 12/23/24 cholecalciferol (vitamin D3) 50 125 mcg PO DAILY 04/07/25 mcg (2,000 unit) tablet insulin glargine 100 unit/mL (3 20 unit subcut BEDTIME 04/07/25 mL) subcutaneous pen (Lantus Solostar U-100 Insulin) insulin lispro 100 unit/mL IV 04/07/25 subcutaneous solution ziprasidone HCl 40 mg capsule 40 mg PO BEDTIME 04/07/25 Previous Rx's ?Medication ?Instructions ?Recorded empagliflozin 10 mg tablet 10 mg PO DAILY #30 tabs 09/25/24 (Jardiance) furosemide 40 mg tablet 40 mg PO DAILY #30 tabs 10/09/24 sodium polystyrene sulfonate 15 30 g PO .COMPLEX #453.6 grams 10/09/24 gram oral powder cyclobenzaprine 10 mg tablet 10 mg PO TID PRN muscle spasm #10 11/27/24 tabs tramadol 50 mg tablet 50 mg PO BID PRN pain #6 tabs 11/27/24 azithromycin 250 mg tablet 250 mg PO DAILY 4 days #4 tabs 02/25/25 cefuroxime axetil 500 mg tablet 500 mg PO Q12H #19 tabs 02/25/25 loratadine 10 mg tablet (Allergy 10 mg PO DAILY #90 tabs 03/06/25 Relief (loratadine)) calcitriol 0.25 mcg capsule 0.25 mcg PO 3XW #14 caps 03/11/25 gabapentin 300 mg capsule 300 mg PO BEDTIME #30 caps 04/07/25 sodium,potassium,mag sulfates 17.5 See Rx Instructions PO .COMPLEX 04/07/25 gram-3.13 gram-1.6 gram oral soln #354 mL (Suprep Bowel Prep Kit) Allergies Allergy/AdvReac Type Severity Reaction Status Date / Time Penicillins (PENICILLINS) Allergy Intermediate RASH, Verified 04/07/25 12:42 DIFFICULTY BREATHING Review of Systems Review of Systems: ROS is otherwise negative unless mentioned in HPI. [facility] Past Medical History Medical History HTN (hypertension) Leukocytosis Memory loss Obesity Idiopathic gout of multiple sites GERD (gastroesophageal reflux disease) Hypertensive chronic kidney disease Secondary hyperparathyroidism, renal Sleep apnea Type 2 diabetes mellitus Schizoaffective disorder Chronic pain syndrome Diabetic polyneuropathy Gout Surgical History History of esophagogastroduodenoscopy (EGD) H/O colonoscopy Family History Family History Father Cancer Diabetes Mother Cancer Diabetes Colon cancer Family/Other Cancer Diabetes Social History Social History Household Members: Spouse Housing: House Are you a primary early breastfeeding care specialist to a significant other at home: No Do you presently have visiting nurse or other home services: No Alcohol intake: never Patient Tobacco Use Status: Never used Tobacco Advance Directives: No Advance Directives Information Provided: Yes Do you have a plan to hurt others: No Plan service: No Physical Exam ED Exam Exam: Nursing notes and vital signs reviewed. Constitutional: Well-appearing, NAD. Alert. Oriented X3. Eyes: EOMI. ENT: Pharynx normal. Neck: Normal inspection. Neck supple. CVS: Normal heart rate and rhythm. Pulses normal. Respiratory: No respiratory distress. Breath sounds normal. Abdomen: Soft and nontender, nondistended. No CVA tenderness bilaterally. Skin: Skin warm and dry. Normal skin color. Extremities: No lower extremity edema. Neuro: Oriented X 3. No motor deficit. Vital Signs: Vital Signs - 24 hr 04/07/25 12:38 04/07/25 16:04 Temperature 98 F 99.1 F Pulse Rate 85 89 Respiratory Rate 18 18 Blood Pressure 160/98 H 184/81 H Pulse Oximetry 98 99 Oxygen Delivery Method Room Air Room Air BMI result Body Mass Index 35.5 Course Course Course Narrative: This is a rapid medical exam performed by Blanca Liz NP: Additional HPI, ROS, PE not included below will be deferred to primary provider. Patient is a 54y/o M with pmhx of ESRD on dialysis for the past 6 mos M/W/F, did not go today as he came here instead, HTN, T2DM, REGI, schizoafective d/o presenting with complaint of atraumatic right upper leg pain for the past 3 days. Unable to visualize in triage. Plan: labs, EKG U/S Medical Decision Making Medical Decision Making MDM Narrative: Exam is overall reassuring, he answers questions appropriately. The poultry processor via the Ipad was utilized for assessment during his visit, [employer] division manager number [phone], [place]. He complains of right-sided thigh pain, he has 2+ patellar DTRs on exam, no complaints of low back pain though does report that the right low back is tender to palpation. No CVA tenderness. We will add on urinalysis sample given the location of pain, though low clinical suspicion for pyelonephritis, cystitis. His white blood cell count here is 14.1 which appears to be around baseline, anemia as well. His creatinine levels elevated at 9.18, he missed his dialysis session today because of the pain. He tells me he made an appointment for tomorrow. His is at bedside, and is agreeable. The venous duplex does not show any evidence of DVT but does show prominent groin lymph nodes. Again, we will assess for infection and discharged to home with oral pain control if negative. He appears comfortable on the stretcher, resting comfortably. 1930-- upon reassessment, reportedly feeling much better. Given his CKD, I have limited options for administering medications in the ED. I do recommend that he uses [id number] Tylenol, Lidoderm patches. The urinalysis here shows no signs of infection at this time. He is agreeable with discharge plan. Discharge instructions discussed with the since of [employer] of [employer] division manager services, Crystal, at bedside. Patient is agreeable, expressed understanding with plan of care. Recommended return precautions to the ED for increasing pain, fever or chills, redness or warmth of the area. Also recommend a repeat ultrasound in the next 5-7 days. Differential Diagnosis Differential Diagnoses: The differential diagnosis associated with the presentation includes Cystitis, pyelonephritis, groin strain, musculoskeletal spasm Admission/Observation Consideration of admission/observation: Escalation of care including admission/observation considered (Not indicated) Lab Data MDM Lab Attestation statement: I reviewed the patient's lab results. (Cr 9.18, significant elev in comparison to prev though has been as high as 10.22. Leukocytosis stable 14.1, baseline anemia. ) 04/07/25 13:23 04/07/25 13:23 Labs: Lab Results 04/07/25 04/07/25 Range/Units 13:23 17:45 WBC 14.1 H (4.8-10.8) X10*3/uL RBC 4.04 L (4.60-5.80) X10*6/uL Hgb 11.9 L (14.0-18.0) g/dl Hct 36.4 L (42.0-52.0) % MCV 90.1 (80.0-98.0) fL MCH 29.5 (27.0-33.0) pg MCHC 32.7 (31.0-36.0) g/dl RDW 14.9 (11.0-16.0) % Plt Count 276 (160-400) X10*3/uL MPV 11.7 (9.4-12.4) fL Immature Gran % (Auto) 0.4 (0.0-0.4) % Neut % (Auto) 68.8 (45-73) % Lymph % (Auto) 16.1 L (20-40) % Jones % (Auto) 9.0 (2-11) % Eos % (Auto) 5.3 H (0-4) % Baso % (Auto) 0.4 (0-2) % Lymph # (Auto) 2.3 (1.2-4.9) X10*3/uL Jones # (Auto) 1.3 H (0.1-1.2) X10*3/uL Eos # (Auto) 0.7 H (0.0-0.4) X10*3/uL Baso # (Auto) 0.1 (0.0-0.2) X10*3/uL Abs Immat Gran (auto) 0.06 H (0.00-0.03) X10*3/uL Absolute Neuts (auto) 9.7 H (2.0-8.3) x10*3/uL Absolute Nucleated RBC 0.000 (0.0-0.012) X10*3/uL Nucleated RBC % (auto) 0.0 (0.0-0.2) /100WBC PT 12.4 (11.2-13.5) SEC INR 1.0 (0.9-1.1) Sodium 139 (135-145) mmol/L Potassium 4.8 (3.3-5.1) mmol/L Chloride 106 (96-108) mmol/L Carbon Dioxide 22 (22-29) mmol/L Anion Gap 16 (12-20) BUN 68 H (9-16) mg/dL Creatinine 9.18 H* (0.5-1.4) mg/dL Estim Creat Clear Calc 10.8 Estimated GFR 6 Random Glucose 228 H (60-115) mg/dL Calcium 8.7 D (8.4-10.2) mg/dL Magnesium 1.9 (1.6-2.6) mg/dL Total Bilirubin 0.4 (0.0-1.0) mg/dL AST 14 (5-37) U/L ALT 12 (0-40) U/L Alkaline Phosphatase 131 H (39-117) U/L Total Protein 6.7 (6.5-8.0) g/dL Albumin 3.6 (3.5-5.0) g/dL Urine Color Yellow Urine Appearance Clear Urine pH 7.0 (5.0-9.0) Ur Specific [place] 1.015 (1.005-1.025) Urine Protein >=1000 (4+) H (Neg-Trace) mg/dL Urine Glucose (UA) 500 H (Negative) mg/dL Urine Ketones Negative (Negative) mg/dL Urine Blood Small (1+) H (Negative) Urine Nitrite Negative (Negative) Ur Leukocyte Esterase Negative (Negative) Independent Interpretation I performed an independent interpretation of an: EKG Interpretation: Rate: 91 Rhythm: NSR [place]: normal Normal P waves. Normal JOCE. Normal QRS complex. ST T wave : no dep, elev qTC: 450 prior studies:similar The study has been interpreted contemporaneously by me. Radiology Impression Discussion of test interpretation with radiology: I have reviewed the radiologist's reading. Radiologist Impression: US/US venous duplex LE RT IMPRESSION: 1. No evidence of DVT in the visualized deep veins. 2. The peroneal vein is not visualized. If the patient's symptoms persist, followup ultrasound in 5 days 7 days might be of value to exclude proximal propagation from a non-visualized calf vein. Recommendation is for a follow-up chest series to be obtained following treatment and/or resolution of symptoms to assure resolution of this appearance. 3. Prominent groin lymph nodes 4. Cystic focus in the posterior knee could reflect joint effusion versus Conway's cyst Independent Historian Clinical information obtained from an independent historian. History obtained from or confirmed by: Spouse External Record Review External record reviewed: Office record, Outpatient record and Prior outpatient labs Chronic Conditions Patient?s care impacted by: Diabetes, Hypertension and Other (CKD) Social Determinants Patient?s care significantly limited by Social Determinants of Health including: Problems related to primary support group Discharge Plan Discharge Clinical Impression: Leg pain, right Patient Disposition: Home, Self-Care Instructions: Leg Pain (ED) Additional Instructions: As we discussed, the ultrasound shows no evidence of any DVT, blood clot in the leg. The peroneal vein however has not been visualized, and we would recommend that you have a repeat ultrasound in 5-7 days if your pain persists. You have prominent groin lymph nodes. Otherwise, your lab work was reassuring. Your creatinine level was elevated. Please ensure that you do not missed her dialysis session tomorrow. You may use [id number] Tylenol to help with your discomfort. You may also use topical Lidoderm patches. With any worsening complaints at any time, seek re-evaluation in the ED. Prescriptions: No Action Jardiance 10 mg tablet 10 mg PO DAILY Qty: 30 2RF furosemide 40 mg tablet 40 mg PO DAILY Qty: 30 4RF loratadine [Allergy Relief (loratadine)] 10 mg tablet 10 mg PO DAILY Qty: 90 0RF calcitriol 0.25 mcg capsule 0.25 mcg PO 3XW Qty: 14 4RF atorvastatin 80 mg tablet 80 mg PO DAILY albuterol sulfate 2.5 mg /3 mL (0.083 %) solution for nebulization 2.5 mg inhalation Q6H PRN (Reason: wheezing) clonazepam 0.5 mg tablet 0.5 mg PO TID acetaminophen 500 mg tablet 1,000 mg PO Q6H PRN (Reason: fever) divalproex [Depakote ER] 500 mg tablet extended release 24 hr 1,000 mg PO BEDTIME calcium carbonate [Calcium Antacid] 200 mg calcium (500 mg) tablet,chewable 400 mg PO DAILY carboxymethylcellulose sodium [Lubricant Eye Drops] 0.5 % dropperette 1 drp ophthalmic (eye) NEEDED Spiriva Respimat 1.25 mcg/actuation mist 2 puff INHALATION DAILY aspirin 81 mg tablet,chewable 1 tab PO DAILY omega 9-hbg-epd-fish oil 300 mg (120 mg- 180mg)-1,000 mg capsule 2 cap PO BID tramadol 50 mg tablet 50 mg PO Q12H PRN (Reason: severe pain) ketotifen fumarate [Eye Itch Relief] 0.025 % (0.035 %) drops 1 drp ophthalmic (eye) BID PRN (Reason: allergies) cyclobenzaprine 10 mg tablet 10 mg PO TID PRN (Reason: muscle spasm) Qty: 10 0RF tramadol 50 mg tablet 50 mg PO BID PRN (Reason: pain) Qty: 6 0RF azithromycin 250 mg tablet 250 mg PO DAILY 4 Days Qty: 4 0RF Rx Instructions: start on day 2 of therapy cefuroxime axetil 500 mg tablet 500 mg PO Q12H Qty: 19 0RF amlodipine 5 mg tablet 5 mg PO DAILY ezetimibe 10 mg tablet 10 mg PO DAILY febuxostat 40 mg tablet 40 mg PO DAILY diphenhydramine HCl [Carey-Dryl] 25 mg tablet 25 mg PO TID PRN (Reason: Allergic Reaction) sodium polystyrene sulfonate 15 gram Powder 30 g PO .COMPLEX Qty: 453.6 3RF Rx Instructions: 30 grams orally once a week; cholecalciferol (vitamin D3) 50 mcg (2,000 unit) tablet 125 mcg PO DAILY insulin lispro 100 unit/mL solution IV insulin glargine [Lantus Solostar U-100 Insulin] 100 unit/mL (3 mL) insulin pen 20 unit subcut BEDTIME ziprasidone HCl 40 mg capsule 40 mg PO BEDTIME gabapentin 300 mg capsule 300 mg PO BEDTIME Qty: 30 1RF sodium,potassium,mag sulfates [Suprep Bowel Prep Kit] 17.5-3.13-1.6 gram recon soln See Rx Instructions PO .COMPLEX Qty: 354 0RF Rx Instructions: DILUTE; drink 1/2 at 6-8 pm and half at 11 PM- 1AM trazodone 150 mg tablet 150 mg PO BEDTIME PRN (Reason: Sleep) pantoprazole 40 mg tablet,delayed release (DR/EC) 40 mg PO DAILY carvedilol 25 mg tablet 25 mg PO BID Rx Instructions: must administer with a meal/food (DME) Dexcom G7 Sand Slinger Misc See Rx Instructions .Route Rx Instructions: As directed (DME) Dexcom G7 Sensor Device See Rx Instructions .ROUTE QWEEK Qty: 1 Rx Instructions: As directed (DME) pen needle, diabetic [BD Ultra-Fine Mini Pen Needle] 31 gauge x 3/16 needle See Rx Instructions .ROUTE DIRECTED Qty: 1200 Rx Instructions: As directed prednisone 20 mg tablet 20 mg PO DAILY Referrals: Katrin Santoyo MD [Primary Care Provider, Internal Medicine] Print Language: Icelandic
--- NOTE | 2025-04-07 12:42 | ECG_ITS ---
Test Reason : LEG PAIN Blood Pressure : */* mmHG Vent. Rate : 91 BPM Atrial Rate : 91 BPM P-R Int : 126 ms QRS Dur : 72 ms QT Int : 366 ms P-R-T Axes : 43 -26 36 degrees QTcB Int : 450 ms Normal sinus rhythm Septal infarct , age undetermined Abnormal ECG When compared with ECG of 25-Feb-2025 16:17, Septal infarct is now Present Referred By: Pooja Liz Electronically Signed By: MANSOOR PROCTOR
[2025-04-07 13:29] LABS: MANUAL DIFF FLAG NO
[2025-04-07 13:33] LABS: Hematocrit 36.4 % (42.0-52.0); Hemoglobin 11.9 g/dl (14.0-18.0); Imm Gran Abs Auto 0.06 X10*3/uL (0.00-0.03); Imm Gran Pct Auto 0.4 % (0.0-0.4); Lymphocytes Absolute Auto 2.3 X10*3/uL (1.2-4.9); Mean Corpuscular HGB Conc 32.7 g/dl (31.0-36.0); Mean Corpuscular Hemoglobin 29.5 pg (27.0-33.0); Mean Corpuscular Volume 90.1 fL (80.0-98.0); NRBC Abs Auto 0.000 X10*3/uL (0.0-0.012); NRBC Pct Auto 0.0 /100WBC (0.0-0.2); Platelet Count 276 X10*3/uL (160-400); Red Blood Count 4.04 X10*6/uL (4.60-5.80); White Blood Count 14.1 X10*3/uL (4.8-10.8)
[2025-04-07 13:42] LABS: INTERNATIONAL NORM RATIO 1.0 (0.9-1.1); Prothrombin Time 12.4 SEC (11.2-13.5)
[2025-04-07 14:06] LABS: Alanine Aminotransferase 12 U/L (0-40); Albumin Level 3.6 g/dL (3.5-5.0); Alkaline Phosphatase 131 U/L (39-117); Anion Gap 16 (12-20); Aspartate Amino Transferase 14 U/L (5-37); Blood Urea Nitrogen 68 mg/dL (9-16); Calcium 8.7 mg/dL (8.4-10.2); Carbon Dioxide 22 mmol/L (22-29); Chloride 106 mmol/L (96-108); Creatinine Clr Calc Pharmacy 10.8; Estimated Glomerular Filt Rate 6; Magnesium 1.9 mg/dL (1.6-2.6); Potassium 4.8 mmol/L (3.3-5.1); Sodium 139 mmol/L (135-145); Total Protein 6.7 g/dL (6.5-8.0)
[2025-04-07 16:04] VITALS: BP 184/81; PULSE 89; RESP 18; TEMP 37.3; O2SAT 99
[2025-04-07 18:37] LABS: Appearance Urine Clear; Glucose Urine UA 500 mg/dL (Negative); PH 7.0 (5.0-9.0); Specific Gravity - Urine 1.015 (1.005-1.025); UMIC TRIGGER UACC YES
[2025-04-07 19:29] VITALS: BP 204/92; PULSE 88; RESP 18; TEMP 36.4; O2SAT 98
[2025-04-07 19:39] VITALS: BP 204/92; PULSE 88; RESP 18; TEMP 36.4; O2SAT 98
== END 2025-04-07 19:44 | disposition home or self-care (01) ==
PROVIDERS: Nurse Practitioner; Registered Nurse Emergency; Emergency Provider Emergency Medicine Emergency Medical Services; PCP Student in an Organized Health Care Education/Training Program
DX: M79.651 Pain in right thigh (principal); I12.0 Hypertensive chronic kidney disease with stage 5 chronic kidney disease or end stage renal disease; E11.22 Type 2 diabetes mellitus with diabetic chronic kidney disease; N18.5 Chronic kidney disease, stage 5; G47.33 Obstructive sleep apnea (adult) (pediatric); Z99.2 Dependence on renal dialysis; Z99.89 Dependence on other enabling machines and devices; Z88.0 Allergy status to penicillin
CPT/HCPCS: 36415; 80053; 81001; 83735; 85025; 85610; 93005; 93971; 99283; 99284

== ENCOUNTER → 2025-04-07 12:42 | Outpatient (BNV) | payer MEDICAID, SELFPAY | PROVIDERS: PCP Student in an Organized Health Care Education/Training Program; Visit Provider Radiology Diagnostic Ultrasound | DX: R59.0 Localized enlarged lymph nodes (principal) | CPT/HCPCS: 93971 ==

== ENCOUNTER → 2025-04-07 12:42 | Outpatient (BNV) | payer MEDICAID, SELFPAY | PROVIDERS: Emergency Provider Emergency Medicine Emergency Medical Services; PCP Student in an Organized Health Care Education/Training Program; Visit Provider Internal Medicine | DX: R94.31 Abnormal electrocardiogram [ECG] [EKG] (principal); M79.606 Pain in leg, unspecified | CPT/HCPCS: 93010 ==

== ENCOUNTER → 2025-04-07 23:59 | Outpatient (BNV) | payer MEDICAID, SELFPAY | PROVIDERS: Visit Provider Internal Medicine Nephrology | DX: N18.6 End stage renal disease (principal) | CPT/HCPCS: 90961 ==